=== PATIENT | female | born 1965 | race Caucasian/White ===

== ENCOUNTER → 2016-11-27 | Outpatient (CLI) | payer OTHER ==
[~2016-11-27] MED LIST: /ESOM40CA; ASPI1TAB PO; ASPI325T PO; ATOR40TA75 PO; BUPR15TASR PO; CLARITIN; CYMB60CA3 PO; DULE200A INH; FERR325T16 PO; FOLI1TAB4 PO; FURO40TA2 PO; GABA800T PO; GLIP5TAB2; GLUC1000; IBUP600T; INCR1INH INH; INSUDET SC; INSUH10VL SC; INSULANT SC; INSULIN REG; JANUVIA; LISI-542 PO; LISI2.5T76 PO; LORA10TA2 PO; LYRI75CA PO; METO1TAB87 PO; NABU750T PO; OMEP40CA2 PO; ONGLYZA PO; PENT400T47 PO; POTA10TA67 PO; PRED5ELUD PEG; PROC25SU24 PR; SERT-138 PO; SIMVPOW2; STOO100C PO; TIZA4CAP3 PO; TOUJ1.2I SC; VITA500046 PO; ZETI10TA
--- NOTE | 2016-11-27 11:34 | REP ---
Pelvic ultrasound including transabdominal, endovaginal and Doppler ultrasound assessment for a postmenopausal bleeding and bilateral pelvic pain: The bladder is incompletely distended. The uterus is anteverted and normal size measuring 8.2 x 3.5 x 4.0 cm. The endometrium is not thickened measuring up to 4 mm. The right ovary is normal size measuring 3.7 x 2.4-0.4 cm. There is a 2.3 cm right ovarian complex cyst. There is vascular flow in the right ovary with the Doppler resistive index of the intraparenchymal arteries measuring 0.79. The left ovary is normal size measuring 1.7 x 1.1 x 1.5 cm. There is no dominant left ovarian mass or cyst. There is vascular flow in the left ovary with the Doppler resistive index of the intraparenchymal arteries measuring 0.38. Impression: There is a 2.3 cm right ovarian complex cyst. There is vascular flow in both ovaries. Otherwise, negative pelvic ultrasound. Signed by Uche Livingston MD 11/27/2016 11:25 A
== END ==
LOC: M RAD 09:30
PROVIDERS: ATTEND Obstetrics & Gynecology
DX: N83.201 Unspecified ovarian cyst, right side (principal)

== ENCOUNTER 2016-11-28 19:01 | Emergency (ER) | payer OTHER ==
[~2016-11-28] VITALS: Ht 162.6 cm; Wt 84.7 kg
[2016-11-28] MEDS ORDERED: MORPHINE 4 MG/ML 1ML SYRINGE IV ONE (19:30)
[2016-11-28] MEDS ORDERED: ONDANSETRON 4MG/2ML VIAL (J2405) IV ONE (19:30)
[2016-11-28] MEDS ORDERED: NS 1,000 ML IV ONE (19:30)
[2016-11-28 20:12] LABS: BASO # 0.3 K/mm3 (0.0-0.2); BASO % 2.6 % (0.0-1.0); EOS # 0.2 K/mm3 (0.0-0.50); EOS % 2.5 % (0.0-3.0); LARGE UNSTAINED CELL # 0.2 K/mm3 (0.0-0.4); LARGE UNSTAINED CELL % 1.5 % (0.0-4.0); LYMPH # 2.4 K/mm3 (1.5-4.5); LYMPH % 23.3 % (24.0-44.0); MEAN CORPUSCULAR HEMOGLOBIN 30.2 pg (27.0-33.0); MEAN CORPUSCULAR HGB CONC 35.4 g/dl (32.0-36.5); MEAN CORPUSCULAR VOLUME 85.4 fl (80.0-96.0); MONO # 0.4 K/mm3 (0.0-0.8); MONO % 3.7 % (0.0-5.0); NEUTROPHILS # 6.9 K/mm3 (1.8-7.7); NEUTROPHILS % 66.5 % (36.0-66.0); PLATELET COUNT, AUTOMATED 281 k/mm3 (150-450); RED CELL DISTRIBUTION WIDTH 12.8 % (11.5-14.5); WHITE BLOOD COUNT 10.3 K/mm3 (4.0-10.0)
[2016-11-28 20:23] LABS: ALBUMIN 3.4 GM/DL (3.2-5.2); ALBUMIN/GLOBULIN RATIO 0.92 (1.00-1.93); ALKALINE PHOSPHATASE 198 U/L (45-117); ALT/SGPT 14 U/L (12-78); AMYLASE 62 U/L (25-115); ANION GAP 9 MEQ/L (8-16); AST/SGOT 10 U/L (15-37); BILIRUBIN,DIRECT < 0.1 MG/DL (0.0-0.2); BILIRUBIN,TOTAL 0.2 MG/DL (0.2-1.0); BLOOD UREA NITROGEN 11 MG/DL (7-18); CALCIUM LEVEL 8.8 MG/DL (8.5-10.1); CARBON DIOXIDE LEVEL 28 MEQ/L (21-32); CHLORIDE LEVEL 98 MEQ/L (98-107); CREATININE FOR GFR 0.99 MG/DL (0.55-1.02); GLOMERULAR FILTRATION RATE > 60.0 (>58); POTASSIUM SERUM 4.1 MEQ/L (3.5-5.1); SODIUM LEVEL 135 MEQ/L (136-145); TOTAL PROTEIN 7.1 GM/DL (6.4-8.2)
[2016-11-28 20:27] LABS: GLUCOSE, FASTING 470 MG/DL (70-105)
[2016-11-28] MEDS ORDERED: ISOVUE-370 76% 100ML VIAL (Q9967) As Ordered ONE (20:34)
--- NOTE | 2016-11-28 21:40 | REPUSA ---
CLINICAL HISTORY: Upper abdominal pain. TECHNIQUE: Multiple axial, coronal, sagittal CT images were obtained through the abdomen and pelvis with administration of IV contrast material. Oral contrast material is not administered. COMMENTS: There is mild hepatic hypoattenuation with respect to spleen compatible with fatty infiltration. The re is no intra or extrahepatic biliary ductal dilatation. The spleen is normal. The gallbladder is within normal limits. The pancreas is of normal contour and attenuation characteristics. 10 mm low density nodule is seen in the left adrenal gland compatible with adenoma. The right adrenal gland is unremarkable. Small hiatal hernia is seen. The kidneys are normal in size, shape and configuration. No renal or ureteral calculi are identified . There is no hydroureter or hydronephrosis. There is no evidence for appendicitis. There is evidence of circumferential wall thickening involvin g duodenum compatible with duodenitis. Consider consultation with GI service and follow-up upper end oscopy. No evidence for small or large bowel obstruction. There is no evidence of abdominal ascites or lymphadenopathy. There is no evidence of intrinsic or extrinsic bladder mass. There is no pelvic ascites or lymphaden opathy. The uterus and ovaries are unremarkable. Images of the lung bases show no evidence of pleural or parenchymal mass. There are no pleural effus ions. The heart is enlarged. Status post median sternotomy and CABG. The bony structures are free of lytic or blastic lesions. IMPRESSION: 1. Evidence of duodenitis. 2. Left adrenal adenoma. 3. Mild fatty infiltration of the liver. 4. Small hiatal hernia is seen. 5. The heart is enlarged. 6. Status post median sternotomy and CABG.
[2016-11-28 21:56] VITALS: BP 153/85
--- NOTE | 2016-11-29 07:41 | ED PDOC ---
Post-Departure Follow-Up Radiology report faxed to Rena Ramachandran MD Nov 29, 2016 07:41
== END 2016-11-28 21:59 | disposition home or self-care (01) ==
LOC: M ED 19:01
DX: K52.9 Noninfective gastroenteritis and colitis, unspecified (principal); K29.80 Duodenitis without bleeding; D35.00 Benign neoplasm of unspecified adrenal gland; K76.0 Fatty (change of) liver, not elsewhere classified; K44.9 Diaphragmatic hernia without obstruction or gangrene; I51.7 Cardiomegaly; Z95.1 Presence of aortocoronary bypass graft; G47.30 Sleep apnea, unspecified; I25.10 Atherosclerotic heart disease of native coronary artery without angina pectoris; I25.2 Old myocardial infarction; E11.9 Type 2 diabetes mellitus without complications; M54.5 Low back pain; I10 Essential (primary) hypertension; Z86.14 Personal history of Methicillin resistant Staphylococcus aureus infection; Z79.82 Long term (current) use of aspirin; Z79.4 Long term (current) use of insulin; Z79.899 Other long term (current) drug therapy
CPT/HCPCS: 74177; 80048; 80076; 81001; 82150; 83690; 85025; 96374; 96375; 99283; J2405; Q9967

== ENCOUNTER → 2016-12-15 | Outpatient (REF) | payer OTHER | LOC: M LAB REF 17:28 | PROVIDERS: ATTEND Obstetrics & Gynecology | DX: N95.0 Postmenopausal bleeding (principal) ==

== ENCOUNTER 2017-03-18 19:49 | Emergency (ER) | payer OTHER ==
[~2017-03-18] VITALS: Ht 162.6 cm; Wt 88.6 kg
[2017-03-18] MEDS ORDERED: METF10004 PO (20:10)
[2017-03-18] MEDS ORDERED: GABA-282 (20:10)
[2017-03-18 22:17] LABS: BASO % 0.4 % (0.0-1.0); EOS # 0.3 10^3/uL (0.0-0.50); IMMATURE GRANULOCYTE % 0.5 % (0-0); LYMPH # 2.6 10^3/uL (1.5-4.5); LYMPH % 27.1 % (24.0-44.0); MEAN CORPUSCULAR HGB CONC 34.2 g/dl (32.0-36.5); MEAN CORPUSCULAR VOLUME 84.8 fl (80.0-96.0); MONO # 0.5 10^3/uL (0.0-0.8); MONO % 5.6 % (0.0-5.0); NEUTROPHILS % 63.4 % (36.0-66.0); PLATELET COUNT, AUTOMATED 296 10^3/uL (150-450); RED CELL DISTRIBUTION WIDTH 12.6 % (11.5-14.5); WHITE BLOOD COUNT 9.5 10^3/uL (4.0-10.0)
[2017-03-18 22:42] LABS: ALBUMIN 3.1 GM/DL (3.2-5.2); ALBUMIN/GLOBULIN RATIO 0.86 (1.00-1.93); ALKALINE PHOSPHATASE 171 U/L (45-117); ALT/SGPT 14 U/L (12-78); ANION GAP 5 MEQ/L (8-16); AST/SGOT 9 U/L (7-37); BILIRUBIN,DIRECT < 0.1 MG/DL (0.0-0.2); BILIRUBIN,TOTAL 0.2 MG/DL (0.2-1.0); BLOOD UREA NITROGEN 17 MG/DL (7-18); CALCIUM LEVEL 8.6 MG/DL (8.5-10.1); CARBON DIOXIDE LEVEL 31 MEQ/L (21-32); CHLORIDE LEVEL 102 MEQ/L (98-107); CREATININE FOR GFR 0.87 MG/DL (0.55-1.02); GLOMERULAR FILTRATION RATE > 60.0 (>58); GLUCOSE, FASTING 353 MG/DL (70-105); POTASSIUM SERUM 4.5 MEQ/L (3.5-5.1); SODIUM LEVEL 138 MEQ/L (136-145); TOTAL PROTEIN 6.7 GM/DL (6.4-8.2)
[2017-03-18] MEDS ORDERED: ISOVUE-370 76% 100ML VIAL (Q9967) As Ordered ONE (23:52)
[2017-03-19] MEDS ORDERED: dexameTHASONE 20 MG/5 ML VIAL (J1100) IV ONE (02:30)
--- NOTE | 2017-03-19 02:30 | REPUSA ---
CLINICAL HISTORY: Pain. TECHNIQUE: Multiple axial CT images were obtained through the neck with IV contrast material. MPR cor onal and sagittal sequences were obtained. COMMENTS: Moderate hypertrophy of the adenoids. Moderate bilateral tonsillar enlargement and oropharynx. Secondary mass effect on the pharyngeal air passage at this level. The narrowest anteroposterior dimension of the residual airway in the orophary nx is 4.8 mm. This is noted at the level of the maximum tonsillar enlargement. No retropharyngeal abscess formation. No drainable fluid collection or abscess formation. The piriform sinuses are normal. There is no supra or infraglottic laryngeal mass. The proximal trach ea is normal. There is no paravertebral soft tissue mass. The salivary glands are normal. There is no deep cervical or jugular lymphadenopathy. The paravertebral soft tissue space is normal. Limited images through the posterior fossa demonstrate no evidence for tonsilar herniation. Evaluation of the visualized lung apices reveals no evidence for abnormality. IMPRESSION: Hypertrophy of the adenoids. Hypertrophy of the palatine tonsils. Probably infectious/inflammatory pathology. Significant mass effect/impingement on the pharyngeal air passage at the level of the palatine tonsil s as detailed above. No drainable abscess formation. Thank you for your kind referral of this patient.
--- NOTE | 2017-03-19 02:48 | REP ---
Clinical: Chest pain . Comparison: 03/11/2016 . Findings: The mediastinum and cardiac silhouette are stable and within normal limits for portable technique. Prior sternotomy. The lung snowden are clear without acute consolidation, effusion, or pneumothorax. Skeletal structures are intact. Impression: No acute cardiopulmonary process appreciated. Signed by James Ya MD 03/19/2017 02:39 A
[2017-03-19 04:03] VITALS: BP 135/62
--- NOTE | 2017-03-19 06:49 | ED PDOC ---
Post-Departure Follow-Up dr richards faxed formal report of ct neck for fu Kartik Kaufman MD Mar 19, 2017 06:49
--- NOTE | 2017-03-19 09:21 | ECGEPIP ---
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
== END 2017-03-19 05:50 | disposition home or self-care (01) ==
LOC: M ED 19:49
DX: J35.3 Hypertrophy of tonsils with hypertrophy of adenoids (principal); R00.0 Tachycardia, unspecified; E11.9 Type 2 diabetes mellitus without complications; I10 Essential (primary) hypertension; F17.200 Nicotine dependence, unspecified, uncomplicated; Z79.82 Long term (current) use of aspirin; Z79.4 Long term (current) use of insulin; Z79.899 Other long term (current) drug therapy
CPT/HCPCS: 70491; 71010; 80048; 80076; 82550; 82553; 83690; 85025; 87880; 93000; 93041; 94760; 96374; 99285; J1100; Q9967

== ENCOUNTER → 2017-05-19 | Outpatient (CLI) | payer OTHER | LOC: M RAD 11:06 | DX: N95.0 Postmenopausal bleeding (principal); N83.201 Unspecified ovarian cyst, right side | CPT/HCPCS: 76856 ==

== ENCOUNTER 2017-06-19 12:11 | Emergency (ER) | payer OTHER ==
[2017-06-19 13:08] LABS: BASO # 0.1 10^3/uL (0.0-0.2); BASO % 0.5 % (0.0-1.0); EOS # 0.3 10^3/uL (0.0-0.50); EOS % 2.2 % (0.0-3.0); HEMOGLOBIN 15.2 g/dl (12.0-16.0); IMMATURE GRANULOCYTE % 0.5 % (0-3.0); LYMPH # 3.6 10^3/uL (1.5-4.5); LYMPH % 27.8 % (24.0-44.0); MEAN CORPUSCULAR HEMOGLOBIN 28.6 pg (27.0-33.0); MEAN CORPUSCULAR HGB CONC 35.3 g/dl (32.0-36.5); MEAN CORPUSCULAR VOLUME 80.8 fl (80.0-96.0); MONO # 0.6 10^3/uL (0.0-0.8); MONO % 4.8 % (0.0-5.0); NEUTROPHILS # 8.3 10^3/uL (1.8-7.7); NEUTROPHILS % 64.2 % (36.0-66.0); PLATELET COUNT, AUTOMATED 303 10^3/uL (150-450); RED BLOOD COUNT 5.32 10^6/uL (4.00-5.40); RED CELL DISTRIBUTION WIDTH 12.4 % (11.5-14.5)
[2017-06-19] MEDS: NS 1,000 ML IV ×2 (13:21)
[2017-06-19] MEDS: ONDANSETRON 4MG/2ML VIAL (J2405) IV ×2 (13:22)
[2017-06-19] MEDS: KETOROLAC 30 MG/ML VIAL (J1885) IV ×2 (13:22)
[2017-06-19 13:58] LABS: ALBUMIN 3.7 GM/DL (3.2-5.2); ALBUMIN/GLOBULIN RATIO 0.77 (1.00-1.93); ALKALINE PHOSPHATASE 210 U/L (45-117); ALT/SGPT 13 U/L (12-78); ANION GAP 6 MEQ/L (8-16); AST/SGOT 9 U/L (7-37); BILIRUBIN,DIRECT < 0.1 MG/DL (0.0-0.2); BILIRUBIN,TOTAL 0.3 MG/DL (0.2-1.0); BLOOD UREA NITROGEN 16 MG/DL (7-18); CALCIUM LEVEL 9.8 MG/DL (8.5-10.1); CARBON DIOXIDE LEVEL 32 MEQ/L (21-32); CHLORIDE LEVEL 95 MEQ/L (98-107); CREATININE FOR GFR 1.09 MG/DL (0.55-1.30); GLOMERULAR FILTRATION RATE 56.6 (>51); GLUCOSE, FASTING 324 MG/DL (70-100); LIPASE 103 U/L (73-393); POTASSIUM SERUM 3.5 MEQ/L (3.5-5.1); SODIUM LEVEL 133 MEQ/L (136-145); TOTAL PROTEIN 8.5 GM/DL (6.4-8.2)
[2017-06-19 14:14] LABS: AMORPHOUS SEDIMENT RFX SMALL (NEGATIVE); KETONE, URINE AUTO RFX NEGATIVE (NEGATIVE); LEUKOCYTE ESTERASE UR AUTO RFX 3+ (NEGATIVE); MUCUS, URINE RFX SMALL (NEGATIVE); NITRITE, URINE AUTO RFX NEGATIVE (NEGATIVE); RBC, URINE AUTO RFX 38 /HPF (0-3); SPECIFIC GRAVITY UR AUTO RFX 1.025 (1.002-1.035); SQUAM EPITHELIAL CELL UR AURFX 19 /HPF (0-6); WBC, URINE AUTO RFX 60 /HPF (0-3)
[2017-06-23 09:40] LABS: BEDSIDE GLUCOSE 384 MG/DL (70-105)
== END 2017-06-19 15:36 | disposition home or self-care (01) ==
LOC: M ED 12:11
DX: N39.0 Urinary tract infection, site not specified (principal); E11.9 Type 2 diabetes mellitus without complications; I10 Essential (primary) hypertension; K21.9 Gastro-esophageal reflux disease without esophagitis; G89.29 Other chronic pain; N83.209 Unspecified ovarian cyst, unspecified side; Z79.899 Other long term (current) drug therapy; Z79.82 Long term (current) use of aspirin; Z79.4 Long term (current) use of insulin; F17.210 Nicotine dependence, cigarettes, uncomplicated
CPT/HCPCS: J2405

== ENCOUNTER → 2017-07-30 | Outpatient (CLI) | payer OTHER ==
[2017-07-30 11:57] LABS: BASO # 0.1 10^3/uL (0.0-0.2); BASO % 0.8 % (0.0-1.0); EOS # 0.3 10^3/uL (0.0-0.50); EOS % 2.5 % (0.0-3.0); HEMOGLOBIN 15.3 g/dl (12.0-15.5); IMMATURE GRANULOCYTE % 0.3 % (0-3.0); LYMPH # 2.8 10^3/uL (1.5-4.5); LYMPH % 27.7 % (24.0-44.0); MEAN CORPUSCULAR HEMOGLOBIN 28.9 pg (27.0-33.0); MEAN CORPUSCULAR HGB CONC 34.8 g/dl (32.0-36.5); MEAN CORPUSCULAR VOLUME 83.2 fl (80.0-96.0); MONO # 0.5 10^3/uL (0.0-0.8); MONO % 4.9 % (0.0-5.0); NEUTROPHILS # 6.5 10^3/uL (1.8-7.7); NEUTROPHILS % 63.8 % (36.0-66.0); PLATELET COUNT, AUTOMATED 288 10^3/uL (150-450); RED BLOOD COUNT 5.29 10^6/uL (4.00-5.40); RED CELL DISTRIBUTION WIDTH 12.2 % (11.5-14.5); WHITE BLOOD COUNT 10.2 10^3/uL (4.0-10.0)
[2017-07-30 12:38] LABS: TOTAL 25(OH) VITAMIN D 15.8 NG/ML (30.0-100.0)
[2017-07-30 12:39] LABS: ALBUMIN 3.2 GM/DL (3.2-5.2); ALKALINE PHOSPHATASE 169 U/L (45-117); ALT/SGPT 15 U/L (12-78); AMYLASE 42 U/L (25-115); ANION GAP 3 MEQ/L (8-16); AST/SGOT 10 U/L (7-37); BILIRUBIN,TOTAL 0.3 MG/DL (0.2-1.0); BLOOD UREA NITROGEN 11 MG/DL (7-18); CALCIUM LEVEL 8.8 MG/DL (8.5-10.1); CARBON DIOXIDE LEVEL 32 MEQ/L (21-32); CHLORIDE LEVEL 102 MEQ/L (98-107); CHOLESTEROL LEVEL 219 MG/DL (<200); CHOLESTEROL RISK RATIO 6.636 (<5); CREATININE FOR GFR 0.79 MG/DL (0.55-1.30); GLOMERULAR FILTRATION RATE > 60.0 (>51); GLUCOSE, FASTING 324 MG/DL (70-100); HDL CHOLESTEROL 33 MG/DL (>40); LDL CHOLESTEROL 137.4 MG/DL (<100); LIPASE 353 U/L (73-393); NON-HDL-C 186 MG/DL; POTASSIUM SERUM 4.6 MEQ/L (3.5-5.1); SODIUM LEVEL 137 MEQ/L (136-145); TOTAL PROTEIN 7.2 GM/DL (6.4-8.2); TRIGLYCERIDES LEVEL 243 MG/DL (<150)
[2017-07-30 12:44] LABS: CONTROL LINE HPYORI INT CTR LINE PRESENT; H PYLORI QUALITATIVE IgG NEGATIVE (NEGATIVE)
[2017-07-30 13:05] LABS: ESTIMATED AVERAGE GLUCOSE 278 MG/DL (60-110); HEMOGLOBIN A1c 11.3 %
== END ==
LOC: M LAB 11:23
DX: E78.5 Hyperlipidemia, unspecified (principal); E11.65 Type 2 diabetes mellitus with hyperglycemia; E78.4 Other hyperlipidemia; E55.9 Vitamin D deficiency, unspecified; Z79.899 Other long term (current) drug therapy; R10.13 Epigastric pain
CPT/HCPCS: 82150

== ENCOUNTER → 2017-08-26 | Outpatient (CLI) | payer OTHER ==
[~2017-08-26] MED LIST changes: -/ESOM40CA; -ASPI1TAB PO; -ASPI325T PO; -ATOR40TA75 PO; -BUPR15TASR PO; -CLARITIN; -CYMB60CA3 PO; -DULE200A INH; +E-Z-GAS II EFFERVESCENT PACKET (SODIUM BICARB./CITRIC ACID/SIMETHICONE) As Ordered; +E-Z-HD 98% w/w 340GM SUSP BTL As Ordered; +E-Z-PAQUE 96% w/w SUSP 176GM BTL As Ordered; -FERR325T16 PO; -FOLI1TAB4 PO; -FURO40TA2 PO; -GABA800T PO; -GLIP5TAB2; -GLUC1000; -IBUP600T; -INCR1INH INH; -INSUDET SC; -INSUH10VL SC; -INSULANT SC; -INSULIN REG; -JANUVIA; -LISI-542 PO; -LISI2.5T76 PO; -LORA10TA2 PO; -LYRI75CA PO; -METO1TAB87 PO; -NABU750T PO; -OMEP40CA2 PO; -ONGLYZA PO; -PENT400T47 PO; -POTA10TA67 PO; -PRED5ELUD PEG; -PROC25SU24 PR; -SERT-138 PO; -SIMVPOW2; -STOO100C PO; -TIZA4CAP3 PO; -TOUJ1.2I SC; -VITA500046 PO; -ZETI10TA
== END ==
LOC: M RAD 08:44
DX: R10.13 Epigastric pain (principal)
CPT/HCPCS: 76705

== ENCOUNTER 2017-10-21 09:01 | Emergency (ER) | payer OTHER ==
[2017-10-21] MEDS: LIDOCAINE 2% W/EPIN INJ 20ML **PRES FREE INJ (09:45)
== END 2017-10-21 10:15 | disposition home or self-care (01) ==
LOC: M ED 09:01
DX: L02.31 Cutaneous abscess of buttock (principal); E10.9 Type 1 diabetes mellitus without complications; Z87.19 Personal history of other diseases of the digestive system; Z87.448 Personal history of other diseases of urinary system; Z95.1 Presence of aortocoronary bypass graft; F17.210 Nicotine dependence, cigarettes, uncomplicated; Z79.899 Other long term (current) drug therapy; Z79.82 Long term (current) use of aspirin; Z79.51 Long term (current) use of inhaled steroids
CPT/HCPCS: 87186

== ENCOUNTER 2017-10-27 09:28 | Emergency (ER) | payer OTHER | END 2017-10-27 10:10 | disposition home or self-care (01) | LOC: M ED 09:28 | DX: L02.31 Cutaneous abscess of buttock (principal); F17.200 Nicotine dependence, unspecified, uncomplicated; Z79.2 Long term (current) use of antibiotics; Z79.899 Other long term (current) drug therapy; Z79.4 Long term (current) use of insulin; Z79.51 Long term (current) use of inhaled steroids | CPT/HCPCS: 99282 ==

== ENCOUNTER 2018-01-14 19:35 | Emergency (ER) | payer OTHER ==
[2018-01-14 20:20] LABS: BASO # 0.1 10^3/uL (0.0-0.2); BASO % 0.7 % (0.0-1.0); EOS # 0.3 10^3/uL (0.0-0.50); EOS % 3.4 % (0.0-3.0); HEMATOCRIT 38.3 % (36.0-47.0); HEMOGLOBIN 13.2 g/dl (12.0-15.5); IMMATURE GRANULOCYTE % 0.5 % (0-3.0); LYMPH # 2.5 10^3/uL (1.5-4.5); LYMPH % 28.7 % (24.0-44.0); MEAN CORPUSCULAR HEMOGLOBIN 29.5 pg (27.0-33.0); MEAN CORPUSCULAR HGB CONC 34.5 g/dl (32.0-36.5); MEAN CORPUSCULAR VOLUME 85.5 fl (80.0-96.0); MONO # 0.5 10^3/uL (0.0-0.8); MONO % 5.6 % (0.0-5.0); NEUTROPHILS # 5.3 10^3/uL (1.8-7.7); NEUTROPHILS % 61.1 % (36.0-66.0); PLATELET COUNT, AUTOMATED 250 10^3/uL (150-450); RED BLOOD COUNT 4.48 10^6/uL (4.00-5.40); RED CELL DISTRIBUTION WIDTH 12.6 % (11.5-14.5); WHITE BLOOD COUNT 8.6 10^3/uL (4.0-10.0)
[2018-01-14 20:44] LABS: POS COUNT POS FLAG
[2018-01-14 21:44] LABS: ANION GAP 8 MEQ/L (8-16); BLOOD UREA NITROGEN 15 MG/DL (7-18); CARBON DIOXIDE LEVEL 28 MEQ/L (21-32); CHLORIDE LEVEL 101 MEQ/L (98-107); CPK CREATINE PHOSPHOKINASE 39 U/L (26-192); CREATININE FOR GFR 0.83 MG/DL (0.55-1.30); GLOMERULAR FILTRATION RATE > 60.0 (>51); GLUCOSE, FASTING 347 MG/DL (70-100); MB/CK RELATIVE INDEX 4.62 (< OR =4); POTASSIUM SERUM 4.3 MEQ/L (3.5-5.1); SODIUM LEVEL 137 MEQ/L (136-145); TROPONIN I < 0.02 NG/ML (< 0.10)
[2018-01-14] MEDS: HumuLIN R (REGULAR) INSULIN (NovoLIN R) **100U/ML** PER UNIT IV (22:15)
[2018-01-14] MEDS: NAPROXEN 250 MG TAB PO (22:15)
== END 2018-01-14 22:34 | disposition home or self-care (01) ==
LOC: M ED 19:35
DX: M94.0 Chondrocostal junction syndrome [Tietze] (principal); E11.9 Type 2 diabetes mellitus without complications; I10 Essential (primary) hypertension; E78.5 Hyperlipidemia, unspecified; K21.9 Gastro-esophageal reflux disease without esophagitis; F17.200 Nicotine dependence, unspecified, uncomplicated; Z82.49 Family history of ischemic heart disease and other diseases of the circulatory system; Z79.899 Other long term (current) drug therapy; Z79.4 Long term (current) use of insulin; Z79.82 Long term (current) use of aspirin
CPT/HCPCS: 71046

== ENCOUNTER 2018-01-21 15:47 | Emergency (ER) | payer OTHER ==
[2018-01-21] MEDS: IPRATROPIUM 0.5MG/ALBUTEROL 2.5MG INH SOL UD 3ML (DUONEB)(J7620) NEB (16:54)
[2018-01-21 17:18] LABS: BASO % 0.3 % (0.0-1.0); EOS # 0.1 10^3/uL (0.0-0.50); EOS % 0.7 % (0.0-3.0); HEMATOCRIT 42.5 % (36.0-47.0); HEMOGLOBIN 14.5 g/dl (12.0-15.5); IMMATURE GRANULOCYTE % 0.3 % (0-3.0); LYMPH # 1.3 10^3/uL (1.5-4.5); LYMPH % 8.7 % (24.0-44.0); MEAN CORPUSCULAR HEMOGLOBIN 29.2 pg (27.0-33.0); MEAN CORPUSCULAR HGB CONC 34.1 g/dl (32.0-36.5); MEAN CORPUSCULAR VOLUME 85.7 fl (80.0-96.0); MONO # 0.7 10^3/uL (0.0-0.8); MONO % 4.6 % (0.0-5.0); NEUTROPHILS # 12.7 10^3/uL (1.8-7.7); NEUTROPHILS % 85.4 % (36.0-66.0); PLATELET COUNT, AUTOMATED 266 10^3/uL (150-450); RED BLOOD COUNT 4.96 10^6/uL (4.00-5.40); RED CELL DISTRIBUTION WIDTH 12.4 % (11.5-14.5); WHITE BLOOD COUNT 14.9 10^3/uL (4.0-10.0)
[2018-01-21 18:15] LABS: ANION GAP 7 MEQ/L (8-16); BLOOD UREA NITROGEN 12 MG/DL (7-18); CALCIUM LEVEL 9.6 MG/DL (8.5-10.1); CARBON DIOXIDE LEVEL 35 MEQ/L (21-32); CHLORIDE LEVEL 91 MEQ/L (98-107); CPK CREATINE PHOSPHOKINASE 36 U/L (26-192); CREATININE FOR GFR 0.94 MG/DL (0.55-1.30); GLOMERULAR FILTRATION RATE > 60.0 (>51); GLUCOSE, FASTING 622 MG/DL (70-100); MB/CK RELATIVE INDEX 3.61 (< OR =4); POTASSIUM SERUM 4.4 MEQ/L (3.5-5.1); SODIUM LEVEL 133 MEQ/L (136-145); TROPONIN I < 0.02 NG/ML (< 0.10)
[2018-01-21] MEDS ORDERED: predniSONE 20 MG TAB PO (18:15)
[2018-01-21 18:59] LABS: APPEARANCE, URINE CLOUDY (CLEAR); BACTERIA, URINE AUTO NEGATIVE (NEGATIVE); BILIRUBIN, URINE AUTO NEGATIVE (NEGATIVE); BLOOD, URINE BLOOD 2+ (NEGATIVE); COLOR, URINE YELLOW (YELLOW); GLUCOSE, URINE (UA) AUTO 3+ mg/dL (NEGATIVE); KETONE, URINE AUTO TRACE mg/dL (NEGATIVE); LEUKOCYTE ESTERASE, URINE AUTO 3+ (NEGATIVE); NITRITE, URINE AUTO NEGATIVE (NEGATIVE); PROTEIN, URINE AUTO 1+ mg/dL (NEGATIVE); RBC, URINE AUTO 27 /HPF (0-3); SPECIFIC GRAVITY URINE AUTO 1.027 (1.002-1.035); SQUAMOUS EPITHELIAL CELL UR AU 2 /HPF (0-6); UROBILINOGEN, URINE AUTO 0.2 mg/dL (0.0-2.0); WBC, URINE AUTO TNTC /HPF (0-3)
[2018-01-21 19:28] LABS: VENOUS BASE EXCESS 5.7 (-2.0-2.0); VENOUS HCO3 32.4 MEQ/L (23.0-27.0); VENOUS O2 SATURATION 95.2 % (60.0-80.0); VENOUS PARTIAL PRESSURE CO2 55.4 mmHg (38.0-50.0); VENOUS PARTIAL PRESSURE O2 75.3 mmHg (30.0-50.0); VENOUS PH 7.385 UNITS (7.330-7.430); VENOUS STANDARD HCO3 29.6 MEQ/L; VENOUS TOTAL CO2 34.1 MEQ/L (24.0-28.0)
[2018-01-21] MEDS: NS 1,000 ML IV (19:50)
[2018-01-21] MEDS: CEFUROXIME 500 MG TAB PO (19:50)
[2018-01-21] MEDS: HumuLIN R (REGULAR) INSULIN (NovoLIN R) **100U/ML** PER UNIT IV (20:14)
[2018-01-21 21:33] LABS: BEDSIDE GLUCOSE 389 MG/DL (70-105)
[2018-01-21] MEDS: CEFDINIR 250 MG/5 ML 60ML SUSP BTL PO (22:00)
== END 2018-01-21 22:07 | disposition home or self-care (01) ==
LOC: M ED 15:47
DX: J40 Bronchitis, not specified as acute or chronic (principal); E11.9 Type 2 diabetes mellitus without complications; I10 Essential (primary) hypertension; E78.5 Hyperlipidemia, unspecified; F17.200 Nicotine dependence, unspecified, uncomplicated
CPT/HCPCS: 71046

== ENCOUNTER → 2018-01-21 | Outpatient (REF) | payer OTHER ==
[2018-01-21 18:36] LABS: APPEARANCE, URINE CLOUDY (CLEAR); BACTERIA, URINE AUTO 2+ (NEGATIVE); BILIRUBIN, URINE AUTO NEGATIVE (NEGATIVE); BLOOD, URINE BLOOD 1+ (NEGATIVE); COLOR, URINE YELLOW (YELLOW); GLUCOSE, URINE (UA) AUTO 3+ mg/dL (NEGATIVE); KETONE, URINE AUTO NEGATIVE (NEGATIVE); LEUKOCYTE ESTERASE, URINE AUTO 3+ (NEGATIVE); MUCUS, URINE SMALL (NEGATIVE); NITRITE, URINE AUTO NEGATIVE (NEGATIVE); PROTEIN, URINE AUTO NEGATIVE (NEGATIVE); RBC, URINE AUTO 5 /HPF (0-3); SPECIFIC GRAVITY URINE AUTO 1.024 (1.002-1.035); SQUAMOUS EPITHELIAL CELL UR AU 1 /HPF (0-6); UROBILINOGEN, URINE AUTO 0.2 mg/dL (0.0-2.0); WBC, URINE AUTO 146 /HPF (0-3)
== END ==
LOC: M LAB REF 17:06
DX: N39.0 Urinary tract infection, site not specified (principal)

== ENCOUNTER 2018-01-27 00:34 | Inpatient (IN) | payer OTHER ==
[2018-01-27 01:48] LABS: BASO # 0.1 10^3/uL (0.0-0.2); BASO % 0.4 % (0.0-1.0); EOS # 0.1 10^3/uL (0.0-0.50); EOS % 1.2 % (0.0-3.0); HEMATOCRIT 38.9 % (36.0-47.0); HEMOGLOBIN 12.5 g/dl (12.0-15.5); IMMATURE GRANULOCYTE % 0.5 % (0-3.0); LYMPH # 1.4 10^3/uL (1.5-4.5); LYMPH % 12.8 % (24.0-44.0); MEAN CORPUSCULAR HEMOGLOBIN 28.9 pg (27.0-33.0); MEAN CORPUSCULAR HGB CONC 32.1 g/dl (32.0-36.5); MEAN CORPUSCULAR VOLUME 89.8 fl (80.0-96.0); MONO # 0.8 10^3/uL (0.0-0.8); MONO % 6.9 % (0.0-5.0); NEUTROPHILS # 8.8 10^3/uL (1.8-7.7); NEUTROPHILS % 78.2 % (36.0-66.0); PLATELET COUNT, AUTOMATED 359 10^3/uL (150-450); RED BLOOD COUNT 4.33 10^6/uL (4.00-5.40); RED CELL DISTRIBUTION WIDTH 12.8 % (11.5-14.5); WHITE BLOOD COUNT 11.3 10^3/uL (4.0-10.0)
[2018-01-27 02:35] LABS: ANION GAP 10 MEQ/L (8-16); BLOOD UREA NITROGEN 17 MG/DL (7-18); CALCIUM LEVEL 8.5 MG/DL (8.5-10.1); CARBON DIOXIDE LEVEL 31 MEQ/L (21-32); CHLORIDE LEVEL 83 MEQ/L (98-107); GLOMERULAR FILTRATION RATE 46.2 (>51); POTASSIUM SERUM 4.9 MEQ/L (3.5-5.1); SODIUM LEVEL 124 MEQ/L (136-145)
[2018-01-27] MEDS: HumuLIN R (REGULAR) INSULIN (NovoLIN R) **100U/ML** PER UNIT IV (02:48)
[2018-01-27] MEDS: NS 1,000 ML IV (02:49)
[2018-01-27 03:01] LABS: GLUCOSE, FASTING 1110 MG/DL (70-100)
[2018-01-27] MEDS: LevoFLOXacin IV 750 MG in APPROPRIATE DILUENT 1 EA IV (03:37)
[2018-01-27] MEDS ORDERED: NS 1,000 ML IV (04:08)
[2018-01-27] MEDS ORDERED: INSULIN HUMAN REGULAR 100 UNITS in NS 99 ML IV (04:15)
[2018-01-27] MEDS ORDERED: INSULIN IV RATE CHANGE DOCUMENTATION ML/HR XX (04:15)
[2018-01-27] MEDS ORDERED: ALBUTEROL 90 MCG/ACT 8GM HFA INHALER INH (04:30)
[2018-01-27] MEDS ORDERED: BENZONATATE 100 MG CAP PO (04:30)
[2018-01-27] MEDS ORDERED: ONDANSETRON 4 MG ORAL DISINTEGRATING TAB (Q0162 PER 1MG) PO (04:30)
[2018-01-27] MEDS: INSULIN HUMAN REGULAR 100 UNITS in NS 99 ML IV (05:05)
[2018-01-27 05:22] LABS: HEMATOCRIT 35.3 % (36.0-47.0); HEMOGLOBIN 12.1 g/dl (12.0-15.5); MEAN CORPUSCULAR HEMOGLOBIN 29.3 pg (27.0-33.0); MEAN CORPUSCULAR HGB CONC 34.3 g/dl (32.0-36.5); MEAN CORPUSCULAR VOLUME 85.5 fl (80.0-96.0); PLATELET COUNT, AUTOMATED 338 10^3/uL (150-450); RED BLOOD COUNT 4.13 10^6/uL (4.00-5.40); RED CELL DISTRIBUTION WIDTH 12.4 % (11.5-14.5); WHITE BLOOD COUNT 10.2 10^3/uL (4.0-10.0)
[2018-01-27] MEDS: KCL 20MEQ in NS 1000ML 1,000 ML IV (05:28)
[2018-01-27 05:43] LABS: ANION GAP 10 MEQ/L (8-16); BLOOD UREA NITROGEN 16 MG/DL (7-18); CARBON DIOXIDE LEVEL 31 MEQ/L (21-32); CHLORIDE LEVEL 92 MEQ/L (98-107); CREATININE FOR GFR 1.16 MG/DL (0.55-1.30); GLOMERULAR FILTRATION RATE 52.6 (>51); GLUCOSE, FASTING 828 MG/DL (70-100); POTASSIUM SERUM 3.7 MEQ/L (3.5-5.1); SODIUM LEVEL 133 MEQ/L (136-145)
[2018-01-27] MEDS: HEPARIN SOD (PORCINE) 5000 UNITS/ML VIAL SC ×3 (06:00→20:41)
[2018-01-27] MEDS ORDERED: INFLUENZA QUADRIVALENT PF VACCINE 0.5ML SYRINGE (90686) IM (06:15)
[2018-01-27] MEDS: INSULIN IV RATE CHANGE DOCUMENTATION ML/HR XX ×2 (06:21→06:29)
[2018-01-27] MEDS: cefTRIAXone SOD 1 GM in D5W MINI-BAG PLUS 50 ML IV (06:38)
[2018-01-27] MEDS: D5W 1,000 ML IV (07:49)
[2018-01-27 07:55] LABS: BEDSIDE GLUCOSE 404 MG/DL (70-105)
[2018-01-27] MEDS ORDERED: GLUCOSE 4 GM CHEW TABLET PO (08:15)
[2018-01-27] MEDS ORDERED: GLUCAGON FOR INJ 1 MG VIAL (J1610) SC (08:15)
[2018-01-27] MEDS ORDERED: DEXTROSE 50% 50 ML SYRINGE IV (08:15)
[2018-01-27 08:17] LABS: ANION GAP 10 MEQ/L (8-16); BLOOD UREA NITROGEN 14 MG/DL (7-18); CALCIUM LEVEL 9.2 MG/DL (8.5-10.1); CARBON DIOXIDE LEVEL 31 MEQ/L (21-32); CHLORIDE LEVEL 96 MEQ/L (98-107); GLOMERULAR FILTRATION RATE > 60.0 (>51); GLUCOSE, FASTING 425 MG/DL (70-100); MAGNESIUM LEVEL 2.1 MG/DL (1.8-2.4); SODIUM LEVEL 137 MEQ/L (136-145)
[2018-01-27 08:17] LABS: LACTIC ACID SEPSIS PROTOCOL 2.3 MMOL/L (0.4-2.0)
[2018-01-27 08:59] LABS: OSMOLALITY SERUM 323 MOSM/KG (275-295)
[2018-01-27 09:22] LABS: BEDSIDE GLUCOSE 500 MG/DL (70-105)
[2018-01-27 09:37] LABS: BEDSIDE GLUCOSE > 600 MG/DL (70-105)
[2018-01-27 09:37] LABS: BEDSIDE GLUCOSE > 600 MG/DL (70-105)
[2018-01-27 09:37] LABS: BEDSIDE GLUCOSE > 600 MG/DL (70-105)
[2018-01-27 09:44] LABS: AMORPHOUS SEDIMENT SMALL (NEGATIVE); APPEARANCE, URINE HAZY (CLEAR); BACTERIA, URINE AUTO NEGATIVE (NEGATIVE); BILIRUBIN, URINE AUTO NEGATIVE (NEGATIVE); BLOOD, URINE BLOOD NEGATIVE (NEGATIVE); COLOR, URINE YELLOW (YELLOW); GLUCOSE, URINE (UA) AUTO 3+ mg/dL (NEGATIVE); KETONE, URINE AUTO NEGATIVE (NEGATIVE); LEUKOCYTE ESTERASE, URINE AUTO 3+ (NEGATIVE); MUCUS, URINE SMALL (NEGATIVE); NITRITE, URINE AUTO NEGATIVE (NEGATIVE); PROTEIN, URINE AUTO NEGATIVE (NEGATIVE); RBC, URINE AUTO 10 /HPF (0-3); SPECIFIC GRAVITY URINE AUTO 1.021 (1.002-1.035); SQUAMOUS EPITHELIAL CELL UR AU 4 /HPF (0-6); UROBILINOGEN, URINE AUTO 0.2 mg/dL (0.0-2.0); WBC, URINE AUTO 12 /HPF (0-3)
[2018-01-27] MEDS: ASPIRIN 325 MG TAB PO (09:45)
[2018-01-27] MEDS: GABAPENTIN 300 MG CAP PO ×3 (09:45→20:40)
[2018-01-27] MEDS: LISINOPRIL 5 MG TAB PO (09:46)
[2018-01-27] MEDS: ATORVASTATIN 20 MG TAB PO (09:46)
[2018-01-27] MEDS: OMEPRAZOLE 20 MG CAP PO (09:46)
[2018-01-27] MEDS: PREGABALIN 75 MG CAP(LYRICA) PO (09:46)
[2018-01-27] MEDS: FOLIC ACID 1 MG TAB PO (09:46)
[2018-01-27] MEDS: DULoxetine 30 MG CAP (CYMBALTA) PO (09:47)
[2018-01-27] MEDS: LEVEMIR (INSULIN DETEMIR) 1 UNITS/0.01ML SC ×2 (09:47→20:42)
[2018-01-27] MEDS: DOCUSATE SODIUM 100 MG CAP PO (09:47)
[2018-01-27] MEDS: LORATADINE 10 MG TAB PO (09:47)
[2018-01-27] MEDS: HumaLOG INSULIN (NovoLOG) PER UNIT SC ×4 (09:48→20:41)
[2018-01-27 10:17] LABS: POTASSIUM RANDOM URINE 32.9 MEQ/L; SODIUM,RANDOM URINE 17 MEQ/L
[2018-01-27 10:17] LABS: CREATININE,RANDOM URINE 29.3 MG/DL
[2018-01-27 12:12] LABS: BEDSIDE GLUCOSE 455 MG/DL (70-105)
[2018-01-27 13:09] LABS: ANION GAP 9 MEQ/L (8-16); BLOOD UREA NITROGEN 15 MG/DL (7-18); CALCIUM LEVEL 9.3 MG/DL (8.5-10.1); CARBON DIOXIDE LEVEL 32 MEQ/L (21-32); CHLORIDE LEVEL 94 MEQ/L (98-107); CREATININE FOR GFR 0.75 MG/DL (0.55-1.30); GLOMERULAR FILTRATION RATE > 60.0 (>51); GLUCOSE, FASTING 428 MG/DL (70-100); MAGNESIUM LEVEL 1.8 MG/DL (1.8-2.4); SODIUM LEVEL 135 MEQ/L (136-145)
[2018-01-27 13:12] LABS: BEDSIDE GLUCOSE 446 MG/DL (70-105)
[2018-01-27] MEDS ORDERED: SLF 3 ML SYR IV (13:30)
[2018-01-27] MEDS: SLF 3 ML SYR IV ×2 (14:13→20:42)
[2018-01-27 16:51] LABS: ANION GAP 7 MEQ/L (8-16); BLOOD UREA NITROGEN 17 MG/DL (7-18); C REACTIVE PROTEIN QUANTITATIV 8.73 MG/DL (0.00-0.30); CALCIUM LEVEL 9.2 MG/DL (8.5-10.1); CARBON DIOXIDE LEVEL 33 MEQ/L (21-32); CHLORIDE LEVEL 95 MEQ/L (98-107); CREATININE FOR GFR 0.72 MG/DL (0.55-1.30); GLOMERULAR FILTRATION RATE > 60.0 (>51); GLUCOSE, FASTING 346 MG/DL (70-100); MAGNESIUM LEVEL 1.9 MG/DL (1.8-2.4); POTASSIUM SERUM 4.2 MEQ/L (3.5-5.1); SODIUM LEVEL 135 MEQ/L (136-145)
[2018-01-27 17:25] LABS: BEDSIDE GLUCOSE 328 MG/DL (70-105)
[2018-01-27 20:11] LABS: BEDSIDE GLUCOSE 400 MG/DL (70-105)
[2018-01-27 20:50] LABS: ANION GAP 7 MEQ/L (8-16); BLOOD UREA NITROGEN 19 MG/DL (7-18); CALCIUM LEVEL 8.1 MG/DL (8.5-10.1); CARBON DIOXIDE LEVEL 32 MEQ/L (21-32); CHLORIDE LEVEL 94 MEQ/L (98-107); GLOMERULAR FILTRATION RATE > 60.0 (>51); GLUCOSE, FASTING 395 MG/DL (70-100); MAGNESIUM LEVEL 1.5 MG/DL (1.8-2.4); POTASSIUM SERUM 4.2 MEQ/L (3.5-5.1); SODIUM LEVEL 133 MEQ/L (136-145)
[2018-01-27] MEDS ORDERED: HumaLOG INSULIN (NovoLOG) PER UNIT SC (21:00)
[2018-01-28] MEDS: HEPARIN SOD (PORCINE) 5000 UNITS/ML VIAL SC ×3 (05:30→20:59)
[2018-01-28] MEDS: SLF 3 ML SYR IV ×3 (05:30→20:59)
[2018-01-28] MEDS: cefTRIAXone SOD 1 GM in D5W MINI-BAG PLUS 50 ML IV (05:31)
[2018-01-28 06:08] LABS: HEMATOCRIT 38.6 % (36.0-47.0); HEMOGLOBIN 13.1 g/dl (12.0-15.5); MEAN CORPUSCULAR HEMOGLOBIN 29.1 pg (27.0-33.0); MEAN CORPUSCULAR HGB CONC 33.9 g/dl (32.0-36.5); MEAN CORPUSCULAR VOLUME 85.8 fl (80.0-96.0); PLATELET COUNT, AUTOMATED 378 10^3/uL (150-450); RED CELL DISTRIBUTION WIDTH 12.2 % (11.5-14.5); WHITE BLOOD COUNT 14.1 10^3/uL (4.0-10.0)
[2018-01-28 06:38] LABS: ANION GAP 5 MEQ/L (8-16); BLOOD UREA NITROGEN 18 MG/DL (7-18); C REACTIVE PROTEIN QUANTITATIV 5.99 MG/DL (0.00-0.30); CALCIUM LEVEL 8.8 MG/DL (8.5-10.1); CARBON DIOXIDE LEVEL 33 MEQ/L (21-32); CHLORIDE LEVEL 97 MEQ/L (98-107); CREATININE FOR GFR 0.63 MG/DL (0.55-1.30); GLOMERULAR FILTRATION RATE > 60.0 (>51); GLUCOSE, FASTING 149 MG/DL (70-100); MAGNESIUM LEVEL 1.6 MG/DL (1.8-2.4); POTASSIUM SERUM 3.8 MEQ/L (3.5-5.1); SODIUM LEVEL 135 MEQ/L (136-145)
[2018-01-28] MEDS: GABAPENTIN 300 MG CAP PO ×3 (08:22→20:57)
[2018-01-28] MEDS: DOCUSATE SODIUM 100 MG CAP PO (08:22)
[2018-01-28] MEDS: FOLIC ACID 1 MG TAB PO (08:22)
[2018-01-28] MEDS: LORATADINE 10 MG TAB PO (08:22)
[2018-01-28] MEDS: OMEPRAZOLE 20 MG CAP PO (08:23)
[2018-01-28] MEDS: DULoxetine 30 MG CAP (CYMBALTA) PO (08:23)
[2018-01-28] MEDS: ATORVASTATIN 20 MG TAB PO (08:23)
[2018-01-28] MEDS: ASPIRIN 325 MG TAB PO (08:23)
[2018-01-28] MEDS: LISINOPRIL 5 MG TAB PO (08:23)
[2018-01-28] MEDS: MAG SULF 1GM/100ML (MAG RUN) 1 GM in APPROPRIATE DILUENT 1 EA IV ×2 (08:24→08:27)
[2018-01-28] MEDS: HumaLOG INSULIN (NovoLOG) PER UNIT SC ×4 (08:24→20:58)
[2018-01-28] MEDS: LEVEMIR (INSULIN DETEMIR) 1 UNITS/0.01ML SC ×2 (08:24→20:58)
[2018-01-28 14:26] LABS: BEDSIDE GLUCOSE 342 MG/DL (70-105)
[2018-01-28 16:32] LABS: BEDSIDE GLUCOSE 363 MG/DL (70-105)
[2018-01-28 20:22] LABS: BEDSIDE GLUCOSE 365 MG/DL (70-105)
[2018-01-28] MEDS: ADVAIR HFA 230/21MCG INHALER INH (21:08)
[2018-01-29] MEDS: HEPARIN SOD (PORCINE) 5000 UNITS/ML VIAL SC (05:40)
[2018-01-29] MEDS: cefTRIAXone SOD 1 GM in D5W MINI-BAG PLUS 50 ML IV (05:40)
[2018-01-29] MEDS: SLF 3 ML SYR IV (05:40)
[2018-01-29 06:40] LABS: HEMATOCRIT 34.6 % (36.0-47.0); HEMOGLOBIN 11.9 g/dl (12.0-15.5); MEAN CORPUSCULAR HEMOGLOBIN 29.1 pg (27.0-33.0); MEAN CORPUSCULAR HGB CONC 34.4 g/dl (32.0-36.5); MEAN CORPUSCULAR VOLUME 84.6 fl (80.0-96.0); PLATELET COUNT, AUTOMATED 350 10^3/uL (150-450); RED BLOOD COUNT 4.09 10^6/uL (4.00-5.40); RED CELL DISTRIBUTION WIDTH 12.2 % (11.5-14.5); WHITE BLOOD COUNT 8.9 10^3/uL (4.0-10.0)
[2018-01-29 06:57] LABS: ESTIMATED AVERAGE GLUCOSE 352 MG/DL (60-110); HEMOGLOBIN A1c 13.9 %
[2018-01-29 07:02] LABS: ANION GAP 6 MEQ/L (8-16); BLOOD UREA NITROGEN 22 MG/DL (7-18); C REACTIVE PROTEIN QUANTITATIV 7.84 MG/DL (0.00-0.30); CALCIUM LEVEL 8.7 MG/DL (8.5-10.1); CARBON DIOXIDE LEVEL 31 MEQ/L (21-32); CHLORIDE LEVEL 97 MEQ/L (98-107); CREATININE FOR GFR 0.74 MG/DL (0.55-1.30); GLOMERULAR FILTRATION RATE > 60.0 (>51); GLUCOSE, FASTING 335 MG/DL (70-100); MAGNESIUM LEVEL 2.1 MG/DL (1.8-2.4); POTASSIUM SERUM 4.2 MEQ/L (3.5-5.1); SODIUM LEVEL 134 MEQ/L (136-145)
[2018-01-29] MEDS: LEVEMIR (INSULIN DETEMIR) 1 UNITS/0.01ML SC (07:49)
[2018-01-29] MEDS: GABAPENTIN 300 MG CAP PO (07:49)
[2018-01-29] MEDS: FOLIC ACID 1 MG TAB PO (07:49)
[2018-01-29] MEDS: HumaLOG INSULIN (NovoLOG) PER UNIT SC ×2 (07:49→12:09)
[2018-01-29] MEDS: ATORVASTATIN 20 MG TAB PO (07:50)
[2018-01-29] MEDS: ASPIRIN 325 MG TAB PO (07:50)
[2018-01-29] MEDS: LISINOPRIL 5 MG TAB PO (07:50)
[2018-01-29] MEDS: DULoxetine 30 MG CAP (CYMBALTA) PO (07:50)
[2018-01-29] MEDS: DOCUSATE SODIUM 100 MG CAP PO (07:50)
[2018-01-29] MEDS: LORATADINE 10 MG TAB PO (07:50)
[2018-01-29] MEDS: OMEPRAZOLE 20 MG CAP PO (07:50)
[2018-01-29] MEDS: ADVAIR HFA 230/21MCG INHALER INH (08:02)
[2018-01-29 11:28] LABS: BEDSIDE GLUCOSE 408 MG/DL (70-105)
== END 2018-01-29 13:23 | disposition home or self-care (01) | DRG 465 ==
LOC: M ED 00:34 → M ED INP 04:08 → M ICU 06:00 → M MSPAV 18:18
PROVIDERS: Internal Medicine
DX: N13.2 Hydronephrosis with renal and ureteral calculous obstruction (principal); E11.51 Type 2 diabetes mellitus with diabetic peripheral angiopathy without gangrene; E83.42 Hypomagnesemia; E11.65 Type 2 diabetes mellitus with hyperglycemia; I10 Essential (primary) hypertension; I25.2 Old myocardial infarction; I25.10 Atherosclerotic heart disease of native coronary artery without angina pectoris; K21.9 Gastro-esophageal reflux disease without esophagitis; F17.200 Nicotine dependence, unspecified, uncomplicated; F32.9 Major depressive disorder, single episode, unspecified; Z95.1 Presence of aortocoronary bypass graft; B96.29 Other Escherichia coli [E. coli] as the cause of diseases classified elsewhere; D72.829 Elevated white blood cell count, unspecified; Z79.899 Other long term (current) drug therapy; Z79.4 Long term (current) use of insulin; Z79.82 Long term (current) use of aspirin; E78.5 Hyperlipidemia, unspecified

== ENCOUNTER → 2018-03-21 | Outpatient (CLI) | payer OTHER ==
[2018-03-21 10:59] LABS: ANION GAP 5 MEQ/L (8-16); BLOOD UREA NITROGEN 21 MG/DL (7-18); CALCIUM LEVEL 8.9 MG/DL (8.5-10.1); CARBON DIOXIDE LEVEL 31 MEQ/L (21-32); CHLORIDE LEVEL 103 MEQ/L (98-107); CREATININE FOR GFR 0.69 MG/DL (0.55-1.30); GLOMERULAR FILTRATION RATE > 60.0 (>51); GLUCOSE, FASTING 147 MG/DL (70-100); POTASSIUM SERUM 4.5 MEQ/L (3.5-5.1); SODIUM LEVEL 139 MEQ/L (136-145)
== END ==
LOC: M LAB 09:21
DX: Z01.812 Encounter for preprocedural laboratory examination (principal); M65.321 Trigger finger, right index finger
CPT/HCPCS: 80048

== ENCOUNTER 2018-06-04 21:47 | Emergency (ER) | payer OTHER ==
[~2018-06-04] VITALS: Ht 162.6 cm; Wt 76.4 kg
[2018-06-04 21:47] VITALS: BP 107/66
[~2018-06-04 21:47] MED LIST changes: +/ESOM40CA; +AMOX/K; +ASPI1TAB PO; +ASPI325T PO; +ATOR40TA75 PO; +BUPR15TASR PO; +CEFD250S26 PO; +CEFU50TA; +CIPR-249 PO; +CLARITIN; +CYMB60CA3 PO; +DULE200A INH; -E-Z-GAS II EFFERVESCENT PACKET (SODIUM BICARB./CITRIC ACID/SIMETHICONE) As Ordered; -E-Z-HD 98% w/w 340GM SUSP BTL As Ordered; -E-Z-PAQUE 96% w/w SUSP 176GM BTL As Ordered; +FERR325T16 PO; +FOLI1TAB11 PO; +FURO40TA2 PO; +GABA-843 PO; +GABA800T4 PO; +GLIP5TAB2; +GLUC1000; +HYDR-3713 PO; +IBUP600T; +INCR1INH INH; +INSUDET SC; +INSUH10VL SC; +INSUHUMDS SC; +INSULANT SC; +INSULIN REG; +JANUVIA; +LISI-542 PO; +LISI2.5T76 PO; +LORA-243 PO; +LYRI75CA PO; +METF10004 PO; +METO1TAB87 PO; +NABU-119 PO; +NAPR-50 PO; +OMEP40CA2 PO; +ONGLYZA PO; +PENT400T47 PO; +POTA10TA67 PO; +PRED20TA; +PRED5ELUD PEG; +PROC25SU24 PR; +PYRI1TAB5 PO; +SERT-138 PO; +SIMVPOW2; +SMZ/TMP PO; +STOO100C PO; +TESS100C PO; +TIZA4CAP PO; +TOUJ1.2I SC; +VENTAER INH; +VITA500046 PO; +ZETI10TA; +ZOFR4TAB14 PO
[2018-06-04] MEDS ORDERED: LYRI150C (22:02)
[2018-06-04] MEDS ORDERED: METF-723 (22:02)
[2018-06-04] MEDS ORDERED: KEFL500C17 PO (23:12)
[2018-06-04] MEDS ORDERED: HYDR-3363 PO (23:13)
[2018-06-04] MEDS ORDERED: CEPHALEXIN 500 MG CAP PO ONE (23:15)
[2018-06-04] MEDS ORDERED: hydrOXYzine 50 MG TAB PO ONE (23:15)
== END 2018-06-04 23:23 | disposition home or self-care (01) ==
LOC: M ED 21:47
DX: L73.9 Follicular disorder, unspecified (principal); E11.9 Type 2 diabetes mellitus without complications; F32.9 Major depressive disorder, single episode, unspecified; F41.9 Anxiety disorder, unspecified; Z95.1 Presence of aortocoronary bypass graft; Z79.82 Long term (current) use of aspirin; Z79.84 Long term (current) use of oral hypoglycemic drugs; Z79.899 Other long term (current) drug therapy

== ENCOUNTER → 2018-06-07 | Outpatient (REF) | payer OTHER ==
[~2018-06-07] MED LIST changes: +HYDR-3363 PO; +KEFL500C17 PO; +LYRI150C; +METF-723
== END ==
LOC: M LAB REF 13:19
PROVIDERS: ATTEND Podiatrist Foot & Ankle Surgery
DX: L03.116 Cellulitis of left lower limb (principal)

== ENCOUNTER 2018-06-26 19:04 | Emergency (ER) | payer OTHER ==
[~2018-06-26] VITALS: Ht 162.6 cm; Wt 76.8 kg
[2018-06-26 19:05] VITALS: BP 134/73
[2018-06-26] MEDS ORDERED: CEPH500C (19:24)
[2018-06-26] MEDS ORDERED: CYCL5TAB (19:24)
[2018-06-26] MEDS ORDERED: predniSONE 20 MG TAB PO ONE (20:00)
[2018-06-26] MEDS ORDERED: PRED10TA2 PO (20:01)
== END 2018-06-26 20:12 | disposition home or self-care (01) ==
LOC: M ED 19:04
DX: R21 Rash and other nonspecific skin eruption (principal); W57.XXXA Bitten or stung by nonvenomous insect and other nonvenomous arthropods, initial encounter; F17.210 Nicotine dependence, cigarettes, uncomplicated; Z79.899 Other long term (current) drug therapy

== ENCOUNTER → 2018-07-10 | Outpatient (REF) | payer OTHER ==
[~2018-07-10] MED LIST changes: +CEPH500C; +CYCL5TAB; +PRED10TA2 PO
[2018-07-10 17:33] LABS: INFLUENZA A AMPLIFICATION NEGATIVE (NEGATIVE); INFLUENZA B AMPLIFICATION NEGATIVE (NEGATIVE)
== END ==
LOC: M LAB REF 09:12
PROVIDERS: ATTEND Nurse Practitioner Family
DX: J11.1 Influenza due to unidentified influenza virus with other respiratory manifestations (principal)

== ENCOUNTER 2018-08-23 06:26 | Observation (INO) | payer OTHER ==
[~2018-08-23] VITALS: Ht 152.4 cm; Wt 77.2 kg
[~2018-08-23 06:26] MED LIST changes: -/ESOM40CA; +ASPI-1 PO; -ASPI1TAB PO; -ASPI325T PO; +ASPI81TA26 PO; -CYCL5TAB; +CYCL5TAB PO; -LYRI150C; +LYRI150C PO; -METF-723; +METF-723 PO; -NAPR-50 PO; +NAPR-837 PO; +NEXI1CAP3
[2018-08-23] MEDS ORDERED: NS 1,000 ML IV ONE ×2 (06:45→09:00)
[2018-08-23] MEDS ORDERED: HumuLIN R (REGULAR) INSULIN (NovoLIN R) **100U/ML** PER UNIT IV ONE (07:00)
[2018-08-23 07:24] LABS: BASO # 0.1 10^3/uL (0.0-0.2); BASO % 0.6 % (0.0-1.0); EOS # 0.1 10^3/uL (0.0-0.50); EOS % 1.6 % (0.0-3.0); HEMATOCRIT 47.5 % (36.0-47.0); HEMOGLOBIN 16.2 g/dl (12.0-15.5); LYMPH # 1.5 10^3/uL (1.5-4.5); LYMPH % 18.1 % (24.0-44.0); MEAN CORPUSCULAR HEMOGLOBIN 29.1 pg (27.0-33.0); MEAN CORPUSCULAR HGB CONC 34.1 g/dl (32.0-36.5); MEAN CORPUSCULAR VOLUME 85.4 fl (80.0-96.0); MONO # 0.4 10^3/uL (0.0-0.8); MONO % 4.9 % (0.0-5.0); NEUTROPHILS # 6.1 10^3/uL (1.8-7.7); NEUTROPHILS % 74.3 % (36.0-66.0); PLATELET COUNT, AUTOMATED 263 10^3/uL (150-450); RED BLOOD COUNT 5.56 10^6/uL (4.00-5.40); WHITE BLOOD COUNT 8.1 10^3/uL (4.0-10.0)
[2018-08-23 08:01] LABS: ACETONE/KETONE 7.38 MG/DL (<2.81); ALBUMIN 3.6 GM/DL (3.2-5.2); ALT/SGPT 14 U/L (12-78); BILIRUBIN,DIRECT 0.1 MG/DL (0.0-0.2); BILIRUBIN,TOTAL 0.4 MG/DL (0.2-1.0); BLOOD UREA NITROGEN 17 MG/DL (7-18); CALCIUM LEVEL 9.3 MG/DL (8.5-10.1); CARBON DIOXIDE LEVEL 30 MEQ/L (21-32); CHLORIDE LEVEL 87 MEQ/L (98-107); CPK CREATINE PHOSPHOKINASE 38 U/L (26-192); CREATININE FOR GFR 1.08 MG/DL (0.55-1.30); ETHYL ALCOHOL (ETHANOL) < 0.003 % (0.000-0.010); GLOMERULAR FILTRATION RATE 56.9 (>51); GLUCOSE, FASTING 882 MG/DL (70-100); LIPASE 87 U/L (73-393); MB/CK RELATIVE INDEX 5.79 (< OR =4); POTASSIUM SERUM 4.8 MEQ/L (3.5-5.1); SODIUM LEVEL 126 MEQ/L (136-145); TOTAL PROTEIN 7.8 GM/DL (6.4-8.2); TROPONIN I < 0.02 NG/ML (< 0.10)
[2018-08-23] MEDS: FERROUS SULFATE 325MG TAB PO SCH ×2 (09:00→21:21)
[2018-08-23] MEDS: raNITIdine SYRUP 150 MG/10 ML UDC PO SCH ×2 (09:00→21:22)
[2018-08-23] MEDS: DULoxetine 30 MG CAP (CYMBALTA) PO SCH ×2 (09:00→21:21)
[2018-08-23] MEDS: LEVEMIR (INSULIN DETEMIR) 1 UNITS/0.01ML SC SCH ×2 (09:00→21:23)
[2018-08-23] MEDS: NICOTINE 21MG/24HR 1 EA TRANSDERMAL TD SCH (09:00)
--- NOTE | 2018-08-23 09:00 | REP ---
Chest x-ray: Two views. History: Cough. Comparison study: January 21, 2018. Findings: EKG monitoring electrodes overlie the chest. The patient is status post prior median sternotomy. There are degenerative changes in the thoracic spine. The heart is not enlarged. Pleural angles are sharp. Lung snowden are clear. Impression: Prior sternotomy. No active disease. Electronically Signed by Vincenzo Almodovar MD 08/23/2018 10:44 A
[2018-08-23] MEDS ORDERED: FERR325T3 PO (09:36)
[2018-08-23] MEDS ORDERED: MUPI2OI TOP (09:36)
[2018-08-23] MEDS ORDERED: RANI150T14 PO (09:36)
[2018-08-23] MEDS ORDERED: FLUT1INH3 INH (09:36)
[2018-08-23] MEDS ORDERED: ADME100I SC (09:36)
[2018-08-23] MEDS ORDERED: BASA100I SC (09:36)
[2018-08-23] MEDS ORDERED: IPRATROPIUM 0.5MG/ALBUTEROL 2.5MG INH SOL UD 3ML (DUONEB)(J7620) NEB PRN (10:30)
[2018-08-23] MEDS ORDERED: DEXTROSE 50% 50 ML SYRINGE IV PRN (10:30)
[2018-08-23] MEDS ORDERED: GLUCOSE 4 GM CHEW TABLET PO PRN (10:30)
[2018-08-23] MEDS ORDERED: GLUCAGON FOR INJ 1 MG VIAL (J1610) SC PRN (10:30)
[2018-08-23] MEDS ORDERED: CYCLOBENZAPRINE 5MG TABLET PO PRN (10:45)
[2018-08-23] MEDS ORDERED: DOCUSATE SODIUM 100 MG CAP PO PRN (10:45)
[2018-08-23] MEDS ORDERED: LevoFLOXacin IV 750 MG in APPROPRIATE DILUENT 1 EA IV ONE (11:00)
[2018-08-23] MEDS ORDERED: NS 1,000 ML IV SCH (11:00)
[2018-08-23] MEDS ORDERED: ISOVUE-370 76% 100ML VIAL (Q9967) As Ordered ONE (11:02)
--- NOTE | 2018-08-23 11:52 | HPEPDOC ---
[facility] Medical History & Physical Date of Admission August 23, 2018 History and Physical CHIEF COMPLAINT: [cough, chest pain] HISTORY OF PRESENT ILLNESS: 52-year-old female with past medical history of coronary artery disease status post myocardial infarction (OH) 2016, status post coronary artery bypass grafting (CABG) 2016, history of non oxygen dependent chronic pulmonary obstructive disease (COPD), chronic active tobacco abuse, hypertension, diabetes, hyperlipidemia presents to the emergency room with cough and chest pain. Patient had nonproductive cough and chest pain with coughing. Patient also noted that she had substernal chest mass that seems to cause intermittent pain at times. She has a history of CABG and had ultrasound done of this mass as an outpatient. Radiology recommended CT scan that her insurance would not cover and therefore she did not obtain one. Patient has a history of COPD and still smokes a 1-1/2 pack of cigarettes per day. Patient states that she had also been noncompliant with her insulin due to stress at home taking care of her grandsons at times. Patient states that her last insulin was this past prior to her admission to the hospital. Patient also have been evaluated and was being treated for URI with prednisone as outpatient. Patient has a podiatry follow-up for her diabetic foot ulcer on her heel and also is plan to see ENT this coming Wednesday for her cough and congestion and also follow- up with Dr. Hernandez from previous appointment in July. Patient denies of any abdominal pain, diarrhea, dysuria. Patient had increased stress level due to caring for her 2 grandsons. Patient admits noncompliance intermittently to her insulin. Patient states she had been compliant with her other medication except for her long-acting insulin. In the ER, patient complained of chest pain and cough she was found to have a blood glucose level of 882 but no anion gap. The patient was given regular insulin by the emergency room (ER) attending and IV fluid, and patient is being admitted for further evaluation and treatment for hyperglycemia. Patient will be treated for noncompliance induced hyperglycemia with intervening factor prednisone use. Chest pain most suspected from her cough but will obtain CT of the chest to evaluate her numbness substernal chest mass. He also be treated for COPD exacerbation/URI. Patient encouraged to follow-up with wound care for her left foot heel diabetic ulcer and with ENT as outpatient. PAST MEDICAL HISTORY: Hypertension. Diabetes. Hyperlipidemia. History of coronary artery disease status post OH in 2016. Chronic active tobacco abuser. Hx of intermittent noncompliance PAST SURGICAL HISTORY: Status post CABG 2016. SOCIAL HISTORY: 30-pack year history of smoking. She still smokes approximately a pack a day and half per day. She denies the use of illicit drugs. FAMILY HISTORY: Negative for coronary disease. ALLERGIES: Please see below. REVIEW OF SYSTEMS: 12 point review system negative other than those described in HPI. HOME MEDICATIONS: Please see below. PHYSICAL EXAMINATION: VITAL SIGNS: Please see below GENERAL APPEARANCE: Resting comfortably, intermittent dry cough HEENT: Normocephalic, PERRLA, Mucous moist, CARDIOVASCULAR: S1,S2, pulse present, regularly, regular; substernal chest mass(history of CABG) LUNGS: Equal air entry b/l but decreased breath sounds laterally, no rales ABDOMEN: Soft, BS present, no tenderness, no guarding GENITOURINARY: No [place] EXTREMITIES: B/L no edema, capillary refill present SKIN: Warm, No fever NEUROLOGICAL: Cranial nerves grossly intact PSYCHIATRIC: Normal mood and affect for current situation LABORATORY DATA: See below. IMAGING: [cxr:Prior sternotomy. No active disease.] MICROBIOLOGY: Please see below. Assessment and plan: 52-year-old female with past medical history of coronary artery disease status post myocardial infarction (OH) 2016, status post coronary artery bypass grafti ng (CABG) 2016, history of non oxygen dependent chronic pulmonary obstructive disease (COPD), chronic active tobacco abuse, hypertension, diabetes, hyperlipidemia presents to the emergency room with cough and chest pain. In the ER, patient complained of chest pain and cough she was found to have a blood glucose level of 882 but no anion gap. The patient was given regular insulin by the emergency room (ER) attending and IV fluid, and patient is being admitted for further evaluation and treatment for hyperglycemia. Patient treated for noncompliance induced hyperglycemia with intervening factor prednisone use. Chest pain most suspected from her cough but will obtain CT of the chest to evaluate her numbness substernal chest mass. He also be treated for COPD exacerbation/URI. Patient encouraged to follow-up with wound care for her left foot heel diabetic ulcer and with ENT as outpatient. Diabetes, intermittent non-compliant induced hyperglycemia -Finger sick monitoring, coverage -Resume home regimen including basal insulin -Resume pregabalin -Hold metformin -Oral prednisone -Hemoglobin A1c COPD exacerbation, non-oxygen dependent -Smoking cessation recommended -Nicotine patch -Respiratory treatment -Levaquin, prednisone - blood culture pending Chest pain and mid substernal chest mass (history of CABG) -Telemetry -Serial cardiac enzyme -CT of the chest for further evaluation of the mass ordered Cough, congestion -Patient has an appointment with ENT 08/26/18 this coming Wednesday with Dr. Cameron Left foot heel diabetic ulcer, stable -Follow up outpatient with wound care -Patient states that she will make appointment History of CAD, OH, CABG 2015 -Statin, aspirin, pentoxifylline -Please follow up with PCP and cardiology as outpatient Hypertension -Lisinopril Hyperlipidemia -Statin Anemia -Iron supplement, folic acid GI medications -Resume omeprazole, ranitidine Resume Cymbalta DVT prophylaxis with heparin subcutaneous Vital Signs Vital Signs Date Time Temp Pulse Resp B/P (MAP) Pulse Ox O2 Delivery O2 Flow Rate FiO2 08/23/18 09:00 141/76 (97) 08/23/18 08:56 97 96 08/23/18 07:00 16 08/23/18 06:45 Room Air 08/23/18 06:26 97.5 Laboratory Data Labs 24H Laboratory Tests 2 08/23/18 06:42: Lactic Acid Level 1.7 08/23/18 06:47: Immature Granulocyte % (Auto) 0.5, White Blood Count 8.1, Red Blood Count 5.56H, Hemoglobin 16.2H, Hematocrit 47.5H, Mean Corpuscular Volume 85.4, Mean Corpuscular Hemoglobin 29.1, Mean Corpuscular Hemoglobin Concent 34.1, Red Cell Distribution Width 12.7, Platelet Count 263, Neutrophils (%) (Auto) 74.3H, Lymphocytes (%) (Auto) 18.1L, Monocytes (%) (Auto) 4.9, Eosinophils (%) (Auto) 1.6, Basophils (%) (Auto) 0.6, Neutrophils # (Auto) 6.1, Lymphocytes # (Auto) 1.5, Monocytes # (Auto) 0.4, Eosinophils # (Auto) 0.1, Basophils # (Auto) 0.1, Nucleated Red Blood Cells % (auto) 0.0 08/23/18 06:48: Anion Gap 9, Glomerular Filtration Rate 56.9, Osmolality 321H, Calcium Level 9.3, Aspartate Amino Transf (AST/SGOT) 8, Alanine Aminotransferase (ALT/SGPT) 14, Alkaline Phosphatase 259H, Total Bilirubin 0.4, Direct Bilirubin 0.1, Total Creatine Kinase 38, Creatine Kinase MB 2.0, Creatine Kinase MB Relative Index 5.79H, Troponin I < 0.02, Total Protein 7.8, Albumin 3.6, Albumin/Globulin Ratio 0.86L, Lipase 87, Ethyl Alcohol Level < 0.003, B-Hydroxybutyrate 7.38H 08/23/18 07:30: POC Glucose (Misc Panel) > 700*H, POC Sodium (Misc Panel) 129L, POC Potassium (Misc Panel) 3.7, POC Chloride (Misc Panel) 89L, POC Total CO2 (Misc Panel) 31.0H, POC Blood Urea Nitrogen (Misc Panel 20, POC Ionized Calcium (Misc Panel) 4.7, POC Creatinine (Misc Panel) 0.6, POC Hematocrit (Misc Panel) 45.0 08/23/18 11:16: CBC/BMP Laboratory Tests 08/23/18 06:47 Red Blood Count 5.56 H, Mean Corpuscular Volume 85.4, Mean Corpuscular Hemoglobin 29.1, Mean Corpuscular Hemoglobin Concent 34.1, Red Cell Distribution Width 12.7, Neutrophils (%) (Auto) 74.3 H, Lymphocytes (%) (Auto) 18.1 L, Monocytes (%) (Auto) 4.9, Eosinophils (%) (Auto) 1.6, Basophils (%) (Auto) 0.6, Neutrophils # (Auto) 6.1, Lymphocytes # (Auto) 1.5, Monocytes # (Auto) 0.4, Eosinophils # (Auto) 0.1, Basophils # (Auto) 0.1 08/23/18 06:48 Microbiology Microbiology 08/23/18 Blood Culture, Received Pending Home Medications Scheduled Aspirin (Aspirin) 325 Mg Tab, 325 MG PO DAILY Atorvastatin Calcium (Atorvastatin Calcium) 40 Mg Tab, 40 MG PO DAILY Duloxetine Hcl (Cymbalta) 60 Mg Cap, 60 MG PO BID Ferrous Sulfate (Ferrous Sulfate) 325 Mg Tablet.dr, 325 MG PO BID Fluticasone Propion/Salmeterol (Fluticasone-Salmeterol 232-14) 1 Each Aer.pow.ba, 1 PUFF INH BID Folic Acid (Folic Acid) 1 Mg Tab, 1 MG PO DAILY Insulin Glargine,Hum.rec.anlog (Basaglar Kwikpen U-100) 100 Unit/1 Ml Insuln.pen, 50 UNIT SC BID Insulin Lispro (Admelog) 100 Unit/1 Ml Vial, 0 SC ACHS PER SLIDING SCALE Lisinopril (Lisinopril) 5 Mg Tab, 5 MG PO DAILY Loratadine (Loratadine) 10 Mg Tab, 10 MG PO DAILY Metformin HCl (Metformin HCl ER) 500 Mg Tab, 1,000 MG PO BIDWM Mupirocin (Mupirocin) 22 Gm Oint...g., 1 DOSE TOP DAILY APPLY TO LEFT FOOT Omeprazole (Omeprazole) 40 Mg Cap, 40 MG PO DAILY Pentoxifylline (Pentoxifylline) 400 Mg Tabcr, 400 MG PO TID Pregabalin (Lyrica) 150 Mg Cap, 150 MG PO TID Ranitidine HCl (Ranitidine HCl) 150 Mg Tablet, 1 TAB PO BID Scheduled PRN Albuterol Sulfate (Ventolin Hfa) 108 Mcg/Act Aer, 2 PUFF INH Q4H PRN for SHORTNESS OF BREATH Cyclobenzaprine HCl (Cyclobenzaprine HCl) 5 Mg Tab, 5 MG PO Q12H PRN for MUSCLE SPASMS Docusate Sodium (Stool Softener) 100 Mg Cap, 100 MG PO BID PRN for CONSTIPATION Allergies Coded Allergies: Grapefruit (Unverified Allergy, Unknown, 08/23/18) MARIELLE WREN MD August 23, 2018 11:51
[2018-08-23 11:59] LABS: MB/CK RELATIVE INDEX 5.43 (< OR =4)
[2018-08-23 12:46] LABS: HEMOGLOBIN A1c 14.2 %
[2018-08-23] MEDS: HumaLOG INSULIN (NovoLOG) PER UNIT SC SCH ×2 (13:55→17:17)
[2018-08-23] MEDS: IPRATROPIUM 0.5MG/ALBUTEROL 2.5MG INH SOL UD 3ML (DUONEB)(J7620) NEB SCH ×2 (14:00→20:45)
--- NOTE | 2018-08-23 14:29 | REP ---
CT chest with IV contrast: History: Chest mass. Comparison chest CT study December 27, 2015. Comparison chest x-ray August 23, 2018. CT contrast dose: 75 mL of intravenous Isovue [address] findings: Digital preliminary interventional cardiologist radiograph shows monitoring electrodes and median sternotomy wires. No extrathoracic mass is observed. Median sternotomy wires are seen. Some vascular calcification is noted. There are scattered normal-sized mediastinal lymph nodes. The largest of these is just superior to the left mainstem bronchus measuring 10 mm in short axis dimension by 17 mm. This is unchanged from the 2016 prior study. No pleural or pericardial effusion is seen. No hilar mass or adenopathy is observed. Lung window settings show mild linear fibrosis in the lingula at the left lung base. The lung snowden are otherwise clear. No pulmonary mass or significant pulmonary nodule is appreciated. There is a small nodule in the left adrenal gland measuring 1.8 cm in greatest diameter. This may be an adrenal adenoma and indeed, it is unchanged compared to the study done December 27, 2015. No right adrenal lesion. Visualized upper abdominal structures are otherwise unremarkable. Impression: Prior median sternotomy. Vascular calcification including coronary calcification. Otherwise no acute disease. Electronically Signed by Vincenzo Almodovar MD 08/23/2018 10:31 P
[2018-08-23] MEDS ORDERED: LEVEMIR (INSULIN DETEMIR) 1 UNITS/0.01ML SC ONE (15:00)
[2018-08-23 15:05] VITALS: BP 143/70
[2018-08-23] MEDS: PENTOXIFYLLINE 400 MG TAB PO SCH ×3 (15:20→21:22)
[2018-08-23] MEDS: ATORVASTATIN 20 MG TAB PO SCH (15:20)
[2018-08-23] MEDS: OMEPRAZOLE 20 MG CAP PO SCH (15:21)
[2018-08-23] MEDS: LORATADINE 10 MG TAB PO SCH (15:22)
[2018-08-23] MEDS: ASPIRIN 325 MG TAB PO SCH (15:22)
[2018-08-23] MEDS: LISINOPRIL 5 MG TAB PO SCH (15:22)
[2018-08-23] MEDS: predniSONE 20 MG TAB PO SCH (15:22)
[2018-08-23] MEDS: FOLIC ACID 1 MG TAB PO SCH (15:22)
[2018-08-23] MEDS: PREGABALIN 75 MG CAP(LYRICA) PO SCH ×3 (15:23→21:22)
[2018-08-23] MEDS: HEPARIN SOD (PORCINE) 5000 UNITS/ML VIAL SC SCH ×2 (15:25→21:21)
[2018-08-23] MEDS ORDERED: HumaLOG INSULIN (NovoLOG) PER UNIT SC STA (17:13)
--- NOTE | 2018-08-23 19:23 | ECGEPIP ---
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
[2018-08-23] MEDS ORDERED: HumaLOG INSULIN (NovoLOG) PER UNIT SC SCH (21:00)
[2018-08-23 22:00] VITALS: BP 134/68
[2018-08-24] MEDS: IPRATROPIUM 0.5MG/ALBUTEROL 2.5MG INH SOL UD 3ML (DUONEB)(J7620) NEB SCH ×3 (02:00→13:02)
[2018-08-24] MEDS: HEPARIN SOD (PORCINE) 5000 UNITS/ML VIAL SC SCH ×2 (05:33→14:00)
[2018-08-24 06:00] VITALS: BP 127/65
[2018-08-24 06:16] LABS: HEMOGLOBIN 14.2 g/dl (12.0-15.5); MEAN CORPUSCULAR HEMOGLOBIN 28.9 pg (27.0-33.0); MEAN CORPUSCULAR HGB CONC 33.8 g/dl (32.0-36.5); MEAN CORPUSCULAR VOLUME 85.4 fl (80.0-96.0); PLATELET COUNT, AUTOMATED 198 10^3/uL (150-450); RED BLOOD COUNT 4.92 10^6/uL (4.00-5.40); WHITE BLOOD COUNT 9.1 10^3/uL (4.0-10.0)
[2018-08-24 06:42] LABS: BLOOD UREA NITROGEN 13 MG/DL (7-18); CALCIUM LEVEL 8.8 MG/DL (8.5-10.1); CARBON DIOXIDE LEVEL 27 MEQ/L (21-32); CHLORIDE LEVEL 100 MEQ/L (98-107); CREATININE FOR GFR 0.65 MG/DL (0.55-1.30); GLOMERULAR FILTRATION RATE > 60.0 (>51); GLUCOSE, FASTING 362 MG/DL (70-100); MAGNESIUM LEVEL 1.8 MG/DL (1.8-2.4); POTASSIUM SERUM 4.2 MEQ/L (3.5-5.1); SODIUM LEVEL 134 MEQ/L (136-145)
[2018-08-24] MEDS: HumaLOG INSULIN (NovoLOG) PER UNIT SC SCH ×2 (08:20→11:42)
[2018-08-24] MEDS: PENTOXIFYLLINE 400 MG TAB PO SCH (08:21)
[2018-08-24] MEDS: DULoxetine 30 MG CAP (CYMBALTA) PO SCH (08:21)
[2018-08-24] MEDS: ATORVASTATIN 20 MG TAB PO SCH (08:21)
[2018-08-24] MEDS: FERROUS SULFATE 325MG TAB PO SCH (08:21)
[2018-08-24] MEDS: LEVEMIR (INSULIN DETEMIR) 1 UNITS/0.01ML SC SCH (08:21)
[2018-08-24] MEDS: LORATADINE 10 MG TAB PO SCH (08:21)
[2018-08-24] MEDS: OMEPRAZOLE 20 MG CAP PO SCH (08:21)
[2018-08-24 08:23] VITALS: BP 112/54
[2018-08-24] MEDS: raNITIdine SYRUP 150 MG/10 ML UDC PO SCH (08:23)
[2018-08-24] MEDS: predniSONE 20 MG TAB PO SCH (08:23)
[2018-08-24] MEDS: PREGABALIN 75 MG CAP(LYRICA) PO SCH (08:23)
[2018-08-24] MEDS: LISINOPRIL 5 MG TAB PO SCH (08:23)
[2018-08-24] MEDS: FOLIC ACID 1 MG TAB PO SCH (08:23)
[2018-08-24] MEDS: NICOTINE 21MG/24HR 1 EA TRANSDERMAL TD SCH (08:23)
[2018-08-24] MEDS: ASPIRIN 325 MG TAB PO SCH (08:23)
[2018-08-24] MEDS ORDERED: METF-723 PO (13:32)
[2018-08-24] MEDS ORDERED: PRED50TA PO (13:32)
[2018-08-24] MEDS ORDERED: LEVA750T7 PO (13:32)
--- NOTE | 2018-08-24 13:47 | DS.PDOC ---
Discharge Summary General Date of Admission August 23, 2018 at 10:30 Date of Discharge 08/24/18 Discharge Summary PROCEDURES PERFORMED DURING STAY: [None]. ADMITTING DIAGNOSES: Diabetes, intermittent non-compliant induced hyperglycemia COPD exacerbation, non-oxygen dependent Chest pain and mid substernal chest mass (history of CABG) Cough, congestion Left foot heel diabetic ulcer, stable History of CAD, MS, CABG 2016 Hypertension Hyperlipidemia Anemia DISCHARGE DIAGNOSES: Diabetes, intermittent non-compliant induced hyperglycemia COPD exacerbation, non-oxygen dependent Chest pain and mid substernal chest mass (history of CABG) Cough, congestion Left foot heel diabetic ulcer, stable History of CAD, MS, CABG 2016 Hypertension Hyperlipidemia Anemia COMPLICATIONS/CHIEF COMPLAINT: Copd Exacerbation Diabetes Melllitis. HISTORY OF PRESENT ILLNESS: [52-year-old female with past medical history of coronary artery disease status post myocardial infarction (MS) 2015, status post coronary artery bypass grafting (CABG) 2015, history of non oxygen dependent chronic pulmonary obstructive disease (COPD), chronic active tobacco abuse, hypertension, diabetes, hyperlipidemia presents to the emergency room with cough and chest pain. Patient had nonproductive cough and chest pain with coughing. Patient also noted that she had substernal chest mass that seems to cause intermittent pain at times. She has a history of CABG and had ultrasound done of this mass as an outpatient. Radiology recommended CT scan that her insurance would not cover and therefore she did not obtain one. Patient has a history of COPD and still smokes a 1-1/2 pack of cigarettes per day. Patient states that she had also been noncompliant with her insulin due to stress at home taking care of her grandsons at times. Patient states that her last insulin was this past prior to her admission to the hospital. Patient also have been evaluated and was being treated for URI with prednisone as outpatient. Patient has a podiatry follow-up for her diabetic foot ulcer on her heel and also is plan to see ENT this coming Wednesday for her cough and congestion and also follow- up with Dr. Hernandze from previous appointment in July. Patient denies of any abdominal pain, diarrhea, dysuria. Patient had increased stress level due to caring for her 2 grandsons. Patient admits noncompliance intermittently to her insulin. Patient states she had been compliant with her other medication except for her long-acting insulin. In the ER, patient complained of chest pain and cough she was found to have a blood glucose level of 882 but no anion gap. The patient was given regular insulin by the emergency room (ER) attending and IV fluid, and patient is being admitted for further evaluation and treatment for hyperglycemia. Patient will be treated for noncompliance induced hyperglycemia with intervening factor prednisone use. Chest pain most suspected from her cough but will obtain CT of the chest to evaluate her numbness substernal chest mass. He also be treated for COPD exacerbation/URI. Patient encouraged to follow-up with wound care for her left foot heel diabetic ulcer and with ENT as outpatient.]. HOSPITAL COURSE: [ 52-year-old female with past medical history of coronary artery disease status post myocardial infarction (MS) 2016, status post coronary artery bypass grafting (CABG) 2016, history of non oxygen dependent chronic pulmonary obstructive disease (COPD), chronic active tobacco abuse, hypertension, diabetes, hyperlipidemia presents to the emergency room with cough and chest pain. In the ER, patient complained of chest pain and cough she was found to have a blood glucose level of 882 but no anion gap. The patient was given regular insulin by the emergency room (ER) attending and IV fluid, and patient is being admitted for further evaluation and treatment for hyperglycemia. Patient treated for noncompliance induced hyperglycemia with intervening factor prednisone use. Chest pain most suspected from her cough and CT of the chest to evaluate her numbness substernal chest mass. He also be treated for COPD exacerbation/URI. Patient encouraged to follow-up with wound care for her left foot heel diabetic ulcer and with ENT as outpatient. Patient had no acute issues overnight. Patient's sugar better controlled but compliance strongly advised including to insulin and diabetic diet. In the hospital patient drank soda without it being diet and thus her sugar was elevated. Incidentally patient stat es that she has lost close to 30 pounds with diet and exercise at home. She has a history of CABG and had a CT done with the results below. Patient to follow up with PCP and her cardiology, cardiology Dr. Pugh, and ENT within 1 week. Patient eager to return home today and agree to being compliant to medical therapy and diabetic diet and also trying to stop smoking. Diabetes, intermittent non-compliant induced hyperglycemia -Finger sick monitoring, coverage -Resume home regimen including basal insulin -Resume pregabalin -Hold metformin for one more day due to CT chest with contrast study -Oral prednisone, prescription given for 5 more day -Hemoglobin A1c 14.2 COPD exacerbation, non-oxygen dependent -Smoking cessation recommended -Nicotine patch -Respiratory treatment -Levaquin, prednisone; prescription for antibiotic and prednisone given - blood culture pending, please follow up with PCP regarding final report Chest pain and mid substernal chest mass (history of CABG) -Telemetry -Serial cardiac enzyme, troponin negative -CT of the chest for further evaluation of the mass: Prior median sternotomy. Vascular calcification including coronary calcification. Otherwise no acute disease. -Patient states that she had lost weight intentionally from 195-164 with exercise and diet. She has a history of CABG and CT found prior median sternotomy with electrodes the median sternotomy wire. Patient has a patient support partner that she will follow up with within 1 week. Patient states that she will see Dr. Pugh regarding this matter. Please follow with PCP and cardiology. Cough, congestion -Patient has an appointment with ENT 08/26/18 this coming Wednesday with Dr. Cameron Left foot heel diabetic ulcer, stable -Follow up outpatient with wound care -Patient states that she will make appointment History of CAD, MS, CABG 2015 -Statin, aspirin, pentoxifylline -Please follow up with PCP and cardiology as outpatient Hypertension -Lisinopril Hyperlipidemia -Statin Anemia -Iron supplement, folic acid GI medications -Resume omeprazole, ranitidine Resume Cymbalta ]. DISCHARGE MEDICATIONS: Please see below. ALLERGIES: Please see below. PHYSICAL EXAMINATION ON DISCHARGE: VITAL SIGNS: Please see below GENERAL APPEARANCE: Resting comfortably HEENT: Normocephalic, PERRLA, Mucous moist, CARDIOVASCULAR: S1,S2, pulse present, regularly, regular; substernal chest mass(history of CABG) LUNGS: Equal air entry b/l but decreased breath sounds laterally, no rales ABDOMEN: Soft, BS present, no tenderness, no guarding GENITOURINARY: No Har[place] EXTREMITIES: B/L no edema, capillary refill present SKIN: Warm, No fever NEUROLOGICAL: Cranial nerves grossly intact PSYCHIATRIC: Normal mood and affect for current situation LABORATORY DATA: Please see below. IMAGING: [See above] PROGNOSIS: [improved] ACTIVITY: [As tolerated]. DIET: [Carbohydrate consistent diet, address need for compliance DISPOSITION: Home DISCHARGE CONDITION: [Stable]. TIME SPENT ON DISCHARGE: Greater than [45] minutes. Vital Signs/I&Os Vital Signs Date Time Temp Pulse Resp B/P (MAP) Pulse Ox O2 Delivery O2 Flow Rate FiO2 08/24/18 08:23 112/54 08/24/18 06:00 97.3 85 18 97 08/23/18 14:52 Room Air I&O- Last 24 Hours up to 6 AM 08/24/18 06:00 Intake Total 3380 ml Output Total 600 ml Balance 2780 ml Laboratory Data Labs 24H Laboratory Tests 2 08/23/18 13:35: Bedside Glucose (Misc Panel) 531*H 08/23/18 16:30: Bedside Glucose Confirm (Misc) 530*H, Total Creatine Kinase 30, Creatine Kinase MB 2.0, Creatine Kinase MB Relative Index 6.00H 08/23/18 17:07: Bedside Glucose (Misc Panel) 533*H 08/23/18 18:49: Bedside Glucose (Misc Panel) 470H 08/23/18 20:01: Bedside Glucose Confirm (Misc) 414*H 08/23/18 20:36: Bedside Glucose (Misc Panel) 487H 08/23/18 22:37: Bedside Glucose (Misc Panel) 387H 08/24/18 02:36: Bedside Glucose (Misc Panel) 365H 08/24/18 05:28: Nucleated Red Blood Cells % (auto) 0.0, Anion Gap 7L, Glomerular Filtration Rate > 60.0, Blood Urea Nitrogen 13, Creatinine 0.65, Sodium Level 134#L, Potassium Level 4.2, Chloride Level 100, Carbon Dioxide Level 27, Calcium Level 8.8, Magnesium Level 1.8 08/24/18 06:06: Bedside Glucose (Misc Panel) 362H 08/24/18 11:01: Bedside Glucose (Misc Panel) 463H 08/24/18 11:37: Bedside Glucose (Misc Panel) 393H 08/24/18 12:02: Bedside Glucose (Misc Panel) 344H CBC/BMP Laboratory Tests 08/24/18 05:28 Red Blood Count 4.92, Mean Corpuscular Volume 85.4, Mean Corpuscular Hemoglobin 28.9, Mean Corpuscular Hemoglobin Concent 33.8, Red Cell Distribution Width 12.5, Calcium Level 8.8 FSBS Laboratory Tests Test 08/23/18 13:35 08/23/18 17:07 08/23/18 18:49 08/23/18 20:36 Range/Units Bedside Glucose (Misc Panel) 531 533 470 487 70-105 MG/DL Test 08/23/18 22:37 08/24/18 02:36 08/24/18 06:06 08/24/18 11:01 Range/Units Bedside Glucose (Misc Panel) 387 365 362 463 70-105 MG/DL Test 08/24/18 11:37 08/24/18 12:02 Range/Units Bedside Glucose (Misc Panel) 393 344 70-105 MG/DL Microbiology Microbiology 08/23/18 Blood Culture - Preliminary, Resulted No growth after 24 hours . All specim... 08/23/18 Blood Culture - Preliminary, Resulted No growth after 24 hours . All specim... 08/23/18 Blood Culture - Preliminary, Resulted No growth after 24 hours . All specim... Discharge Medications Scheduled Aspirin (Aspirin) 325 Mg Tab, 325 MG PO DAILY, (Reported) Atorvastatin Calcium (Atorvastatin Calcium) 40 Mg Tab, 40 MG PO DAILY, (Reported) Duloxetine Hcl (Cymbalta) 60 Mg Cap, 60 MG PO BID, (Reported) Ferrous Sulfate (Ferrous Sulfate) 325 Mg Tablet.dr, 325 MG PO BID, (Reported) Fluticasone Propion/Salmeterol (Fluticasone-Salmeterol 232-14) 1 Each Aer.pow.ba, 1 PUFF INH BID, (Reported) Folic Acid (Folic Acid) 1 Mg Tab, 1 MG PO DAILY, (Reported) Insulin Glargine,Hum.rec.anlog (Basaglar Kwikpen U-100) 100 Unit/1 Ml Insuln.pen, 50 UNIT SC BID, (Reported) Insulin Lispro (Admelog) 100 Unit/1 Ml Vial, 0 SC ACHS, (Reported) PER SLIDING SCALE Levofloxacin (Levaquin) 750 Mg Tablet, 750 MG PO Q48H Lisinopril (Lisinopril) 5 Mg Tab, 5 MG PO DAILY, (Reported) Loratadine (Loratadine) 10 Mg Tab, 10 MG PO DAILY, (Reported) Metformin HCl (Metformin HCl ER) 500 Mg Tab, 1,000 MG PO BIDWM Start date on 08/25/18 Mupirocin (Mupirocin) 22 Gm Oint...g., 1 DOSE TOP DAILY, (Reported) APPLY TO LEFT FOOT Omeprazole (Omeprazole) 40 Mg Cap, 40 MG PO DAILY, (Reported) Pentoxifylline (Pentoxifylline) 400 Mg Tabcr, 400 MG PO TID, (Reported) Prednisone (Prednisone) 50 Mg Tablet, 50 MG PO DAILY Pregabalin (Lyrica) 150 Mg Cap, 150 MG PO TID, (Reported) Ranitidine HCl (Ranitidine HCl) 150 Mg Tablet, 1 TAB PO BID, (Reported) Scheduled PRN Albuterol Sulfate (Ventolin Hfa) 108 Mcg/Act Aer, 2 PUFF INH Q4H PRN for SHORTNESS OF BREATH, (Reported) Cyclobenzaprine HCl (Cyclobenzaprine HCl) 5 Mg Tab, 5 MG PO Q12H PRN for MUSCLE SPASMS, (Reported) Docusate Sodium (Stool Softener) 100 Mg Cap, 100 MG PO BID PRN for CONSTIPATION, (Reported) Allergies Coded Allergies: Grapefruit (Unverified Allergy, Unknown, 08/23/18) MARIELLE WREN MD August 24, 2018 13:47
[2018-08-25] MEDS ORDERED: LevoFLOXacin IV 750 MG in APPROPRIATE DILUENT 1 EA IV SCH (12:00)
== END 2018-08-24 15:30 | disposition home or self-care (01) ==
LOC: M ED 06:26 → M ED INP 10:30 → M MSPAV 15:01
PROVIDERS: ADMIT Internal Medicine; ATTEND Internal Medicine
DX: E11.65 Type 2 diabetes mellitus with hyperglycemia (principal); Z91.14 Patient's other noncompliance with medication regimen; J44.1 Chronic obstructive pulmonary disease with (acute) exacerbation; R07.9 Chest pain, unspecified; E13.621 Other specified diabetes mellitus with foot ulcer; I10 Essential (primary) hypertension; I25.10 Atherosclerotic heart disease of native coronary artery without angina pectoris; R05 Cough; I25.2 Old myocardial infarction; Z95.2 Presence of prosthetic heart valve; R22.2 Localized swelling, mass and lump, trunk; E78.49 Other hyperlipidemia; D64.9 Anemia, unspecified; F17.210 Nicotine dependence, cigarettes, uncomplicated; Z79.84 Long term (current) use of oral hypoglycemic drugs; Z79.899 Other long term (current) drug therapy; K21.9 Gastro-esophageal reflux disease without esophagitis; Z79.82 Long term (current) use of aspirin
CPT/HCPCS: 36415; 71046; 71260; 80047; 80048; 80076; 82010; 82550; 82553; 82947; 83036; 83605; 83690; 83735; 83930; 84145; 85025; 85027; 87040; 93005; 94640; 96361; 96365; 96366; 97161; 99285; G0480; J1956; Q9967

== ENCOUNTER → 2018-09-05 | Outpatient (CLI) | payer OTHER ==
[~2018-09-05] MED LIST changes: +ADME100I SC; +BASA100I SC; +FERR325T3 PO; +FLUT1INH3 INH; +LEVA750T7 PO; +MUPI2OI TOP; +PRED50TA PO; +RANI150T14 PO
--- NOTE | 2018-09-05 07:49 | REP ---
Clinical: Chest pain. Rule out sternal fracture of the . Comparison: 08/23/2018 . Technique: PA and lateral. Findings: The mediastinum and cardiac silhouette are normal. Sternotomy again noted. No obvious acute sternal fracture identified. The lung snowden are clear and without acute consolidation, effusion, or pneumothorax. The skeletal structures are intact and normal. Impression: 1. No acute cardiopulmonary process. 2. No obvious acute sternal fracture appreciated. Electronically Signed by James Ya MD 09/05/2018 07:41 A
--- NOTE | 2018-09-05 07:51 | REP ---
Clinical: Pain. Rule out sternal fracture. Technique: Two orthogonal views of the sternum. Findings: Evidence of prior sternotomy. No obvious acute sternal fracture identified. Impression: No obvious acute sternal fracture. Electronically Signed by James Ya MD 09/05/2018 07:42 A
== END ==
LOC: M RAD 07:11
PROVIDERS: ATTEND Internal Medicine Cardiovascular Disease
DX: J44.9 Chronic obstructive pulmonary disease, unspecified (principal)

== ENCOUNTER → 2018-10-25 | Outpatient (CLI) | payer OTHER ==
[~2018-10-25] MED LIST changes: +MM S100C PO; -STOO100C PO
--- NOTE | 2018-10-25 23:10 | REP ---
Clinical: Peripheral vascular disease with nonhealing left lower extremity ulcer. Technique: Real time sweet scale and color Doppler evaluation of the bilateral lower extremity arterial vasculature using linear high frequency transducer. Findings: Sweet scale and color images demonstrate severe bilateral calcified atherosclerotic changes. Severe focal stenosis noted at the bilateral mid superficial femoral arteries along with significantly decreased flow velocities distal to the areas of stenoses. Reversed flow is noted in the left distal posterior tibial artery and marked stenosis in the proximal left anterior tibial artery is also identified. Monophasic wave patterns noted bilaterally consistent with significant upstream atherosclerotic disease. Peak systolic velocities (cm/sec) RIGHT LEFT Common femoral artery 208 237 Profunda femoris 182 141 - 237 SFA (proximal) 168 159 SFA (mid) 88 - 432 51 - 404 SFA (distal) 86 48 Popliteal artery 40 42 THO (prox.) 18 117 - 19 Tibioperoneal trunk 49 36 DEPUTY SHERIFF GENERALIST (prox.) 45 24 DEPUTY SHERIFF GENERALIST (distal) 20 15 THO (distal) 65 10 Impression: Severe bilateral atherosclerotic disease with marked focal areas of stenosis noted in the bilateral mid superficial femoral arteries as well as left proximal anterior tibial artery. Electronically Signed by James Ya MD 10/25/2018 11:01 P
== END ==
LOC: M RAD 12:25
PROVIDERS: ATTEND Podiatrist Foot & Ankle Surgery
DX: I70.249 Atherosclerosis of native arteries of left leg with ulceration of unspecified site (principal)

== ENCOUNTER → 2018-11-22 | Outpatient (CLI) | payer OTHER ==
[2018-11-22 10:22] LABS: BASO # 0.1 10^3/uL (0.0-0.2); BASO % 0.8 % (0.0-1.0); EOS # 0.4 10^3/uL (0.0-0.50); EOS % 4.1 % (0.0-3.0); HEMATOCRIT 43.1 % (36.0-47.0); HEMOGLOBIN 14.7 g/dl (12.0-15.5); LYMPH # 2.2 10^3/uL (1.5-4.5); LYMPH % 25.2 % (24.0-44.0); MEAN CORPUSCULAR HEMOGLOBIN 29.1 pg (27.0-33.0); MEAN CORPUSCULAR HGB CONC 34.1 g/dl (32.0-36.5); MEAN CORPUSCULAR VOLUME 85.2 fl (80.0-96.0); MONO # 0.5 10^3/uL (0.0-0.8); MONO % 5.5 % (0.0-5.0); NEUTROPHILS # 5.6 10^3/uL (1.8-7.7); NEUTROPHILS % 63.9 % (36.0-66.0); PLATELET COUNT, AUTOMATED 265 10^3/uL (150-450); RED BLOOD COUNT 5.06 10^6/uL (4.00-5.40); WHITE BLOOD COUNT 8.8 10^3/uL (4.0-10.0)
[2018-11-22 10:45] LABS: BLOOD UREA NITROGEN 13 MG/DL (7-18); CALCIUM LEVEL 8.7 MG/DL (8.5-10.1); CARBON DIOXIDE LEVEL 33 MEQ/L (21-32); CHLORIDE LEVEL 101 MEQ/L (98-107); CREATININE FOR GFR 0.73 MG/DL (0.55-1.30); GLOMERULAR FILTRATION RATE > 60.0 (>51); GLUCOSE, FASTING 195 MG/DL (70-100); POTASSIUM SERUM 4.3 MEQ/L (3.5-5.1); SODIUM LEVEL 137 MEQ/L (136-145)
== END ==
LOC: M LAB 09:30
PROVIDERS: ATTEND Surgery Vascular Surgery
DX: I70.213 Atherosclerosis of native arteries of extremities with intermittent claudication, bilateral legs (principal)

== ENCOUNTER 2018-12-05 09:52 | Outpatient (CLI) | payer OTHER ==
[~2018-12-05 09:52] MED LIST changes: +BUPIVACAINE HCL 0.5% 10 ML VIAL As Ordered ONE; +HEPARIN 1,000 UNITS/ML 10ML VIAL (FOR RADIOLOGY& DIALYSIS ONLY) As Ordered ONE; +ISOVUE-300 61% 50ML VIAL (Q9967) As Ordered ONE; +LIDOCAINE 2% MDV 20 ML VIAL As Ordered ONE; -OMEP40CA2 PO; +OMEP40CA97 PO; +diphenhydrAMINE INJ 50MG/ML VIAL (J1200) As Ordered ONE
[2018-12-05] MEDS ORDERED: fentaNYL 100 MCG/2 ML INJECTION (J3010) As Ordered ONE (10:50)
[2018-12-05] MEDS ORDERED: MIDAZOLAM INJ 2 MG/2 ML VIAL (J2250) As Ordered ONE (10:50)
[2018-12-05] MEDS ORDERED: PROTAMINE SULF INJ 50 MG/5 ML VIAL (J2720) As Ordered ONE (11:57)
[2018-12-05 16:00] VITALS: BP 124/62
--- NOTE | 2018-12-24 09:08 | REPIR ---
DATE OF PROCEDURE: 12/05/2018 ATTENDING SURGEON: Dr. Ruma Herrmann ACCOUNT RESOLUTION EXPERT: Shwetha Martinez and Rosa Hilario PREOPERATIVE DIAGNOSES: Nonhealing left foot wound, diabetes mellitus, and hypertension. POSTOPERATIVE DIAGNOSES: Nonhealing left foot wound, diabetes mellitus, and hypertension. PROCEDURE: Aortogram, iliofemoral angiogram, selective left common femoral artery catheter placement with left lower extremity angiogram, left common femoral artery angioplasty with 5 x 200 balloon, left superficial femoral artery angioplasty with 5 x 200 balloon, left popliteal artery angioplasty with 5 x 200 balloon, Mynx closure of the right common femoral arteriotomy. INDICATION: The patient is a 53-year female with nonhealing left foot wounds and a history of diabetes and hypertension. The patient undergo an angiogram with possible angioplasty stent and/or atherectomy. ANESTHESIA: Was local with sedation with 1 mg Versed 50 mcg of fentanyl and 20 mL of 2% lidocaine mixed with 0.5% Marcaine. FLUORO TIME: 3.0 minutes. CONTRAST: 14 mL of Isovue-300. SEDATION TIME: Was 11:23 a.m. to 12:13 a.m. for a total of 50 minutes. HEPARIN: 6000 units. PROTAMINE: 50 mg. COMPLICATIONS: None. DRAINS: None. SPECIMENS: None. IMPLANTS: None. FINDINGS: The patient had a palpable dorsalis pedis pulse at the completion of the intervention, this was nonpalpable prior to the intervention. PROCEDURE: The patient was taken to the angiography suite, placed supine on the angiography room table and then prepped and draped in a standard surgical fashion. The right common femoral artery was cannulated with a micropuncture needle after anesthetizing the overlying skin and subcutaneous tissue. Catheter was placed in the aorta and aortogram was performed. Catheter was pulled down to level bifurcation of the iliac arteries and an iliofemoral angiogram was performed. Catheter was directed over the bifurcation, placed in the left common femoral artery and angiogram was performed. This showed severe disease in the common femoral, superficial femoral, and popliteal artery which underwent angioplasty with a 5 x 200 balloon. A completion angiogram showed resolution of the stenosis with excellent flow distally and into the anterior tibial artery. The catheters and wires were removed. A Mynx closure was used close the arteriotomy in the right common femoral artery with an additional 10 minutes of adjunctive pressure applied for hemostasis. Dressings were then applied. The patient tolerated the procedure well. All instrument, sponge and needle counts were correct at the end the case. There were no complications. Dr. Herrmann was present for and directed the entire case. The patient was transferred to holding area and subsequently discharged in stable condition.
== END 2018-12-05 16:22 | disposition home or self-care (01) ==
LOC: M IRPRO 09:52
PROVIDERS: ATTEND Surgery Vascular Surgery
DX: I70.245 Atherosclerosis of native arteries of left leg with ulceration of other part of foot (principal); L97.529 Non-pressure chronic ulcer of other part of left foot with unspecified severity; I10 Essential (primary) hypertension; E11.621 Type 2 diabetes mellitus with foot ulcer; F41.9 Anxiety disorder, unspecified; F32.9 Major depressive disorder, single episode, unspecified
CPT/HCPCS: 37224; 75710; 99152; 99153; C1725; C1760; C1769; C1887; C1894; J1200; J2250; J2720; J3010; Q9967

== ENCOUNTER → 2018-12-15 | Outpatient (CLI) | payer OTHER ==
[~2018-12-15] MED LIST changes: +BREO1INH INH; +BREO1INH3 INH; -BUPIVACAINE HCL 0.5% 10 ML VIAL As Ordered ONE; +DOXY100C37 PO; +FERR1TAB8 PO; -HEPARIN 1,000 UNITS/ML 10ML VIAL (FOR RADIOLOGY& DIALYSIS ONLY) As Ordered ONE; -ISOVUE-300 61% 50ML VIAL (Q9967) As Ordered ONE; -LIDOCAINE 2% MDV 20 ML VIAL As Ordered ONE; +METF-791 PO; +NYST1POW9 TOP; +PROV108A INH; +STEG15TA PO; +TRES100I SC; +TRES1INJ SC; -diphenhydrAMINE INJ 50MG/ML VIAL (J1200) As Ordered ONE
--- NOTE | 2018-12-15 21:35 | REP ---
Clinical: Palpable mass/lump related to the left anterior chest. Technique: PA and lateral. Comparison: 09/05/2018. Findings: There appears to be a linear faint metallic foreign body suggested in the medial lower anterior left chest wall measuring approximately 2.4 cm in length and may represent a portion of fractured wire or needle for which clinical correlation is recommended. Mediastinum and cardiac silhouette are stable and demonstrate prior sternotomy and CABG. Lung snowden demonstrate chronic-appearing interstitial changes without obvious focal consolidation, effusion, or pneumothorax. Impression: Thin linear metallic foreign body suspected in the anteromedial lower left chest wall appears nonacute and is of uncertain clinical significance or etiology. Electronically Signed by James Ya MD 12/15/2018 09:27 P
== END ==
LOC: M SMT 09:16
PROVIDERS: ATTEND Thoracic Surgery (Cardiothoracic Vascular Surgery)
DX: S20.359A Superficial foreign body of unspecified front wall of thorax, initial encounter (principal)

== ENCOUNTER → 2019-01-09 | Outpatient (CLI) | payer OTHER ==
[~2019-01-09] MED LIST changes: -BREO1INH INH; -BREO1INH3 INH; -DOXY100C37 PO; -FERR1TAB8 PO; -METF-791 PO; -NYST1POW9 TOP; +OMEP40CA2 PO; -OMEP40CA97 PO; -PROV108A INH; -STEG15TA PO; -TRES100I SC; -TRES1INJ SC
--- NOTE | 2019-01-10 07:03 | REP ---
Clinical: Superficial foreign body. Technique: Axial noncontrast images from the thoracic inlet to the upper abdomen with coronal and sagittal. Tobi: 08/23/2018. Findings: Bilateral lung snowden demonstrate mild chronic bilateral fibroatelectatic changes without acute consolidation, significant nodule/mass, or pleural effusion. No pneumothorax. Tracheobronchial tree is patent. Mediastinum demonstrates atherosclerotic changes to the aorta and coronary arteries along with evidence of prior sternotomy. No significant adenopathy. No significant extrathoracic mass or foreign body identified. The BB marker is suggested overlying the midline sternum and the patient may be feeling the underlying sternotomy wires rather than actual mass. Limited upper abdomen demonstrates stable left adrenal adenoma. Impression: 1. Chronic stable changes. No acute mediastinal or pleuroparenchymal process. 2. BB marker overlies sternotomy wires which may reflect the patient's presumed mass/foreign body. Electronically Signed by James Ya MD 01/10/2019 06:55 A
== END ==
LOC: M RAD 10:12
PROVIDERS: ATTEND Thoracic Surgery (Cardiothoracic Vascular Surgery)
DX: S20.359A Superficial foreign body of unspecified front wall of thorax, initial encounter (principal); X58.XXXA Exposure to other specified factors, initial encounter; Y92.89 Other specified places as the place of occurrence of the external cause

== ENCOUNTER 2019-02-02 21:53 | Emergency (ER) | payer OTHER ==
[~2019-02-02] VITALS: Ht 162.6 cm; Wt 81.8 kg
[~2019-02-02 21:53] MED LIST changes: -OMEP40CA2 PO; +OMEP40CA97 PO
[2019-02-02 23:03] VITALS: BP_DIAS 81
[2019-02-02] MEDS ORDERED: IPRATROPIUM 0.5MG/ALBUTEROL 2.5MG INH SOL UD 3ML (DUONEB)(J7620) NEB ONE (23:15)
[2019-02-02] MEDS ORDERED: DOXY100C37 PO (23:18)
[2019-02-02] MEDS ORDERED: PROV108A INH (23:43)
[2019-02-03] MEDS ORDERED: DOXYCYCLINE HYCLATE 100 MG TAB PO ONE
[2019-02-03 00:40] VITALS: BP_SYST 169
--- NOTE | 2019-02-03 02:54 | REP ---
Clinical: Cough and shortness of breath . Comparison: 12/15/2018 . Technique: PA and lateral. Findings: The mediastinum and cardiac silhouette are normal. Evidence for prior sternotomy. The lung snowden are clear and without acute consolidation, effusion, or pneumothorax. The skeletal structures are intact and normal. Impression: 1. No acute cardiopulmonary process. Electronically Signed by James Ya MD 02/03/2019 02:45 A
--- NOTE | 2019-02-03 19:50 | ECGEPIP ---
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
== END 2019-02-03 00:41 | disposition home or self-care (01) ==
LOC: M ED 21:53
DX: J06.9 Acute upper respiratory infection, unspecified (principal); J40 Bronchitis, not specified as acute or chronic; I11.9 Hypertensive heart disease without heart failure; E11.9 Type 2 diabetes mellitus without complications; F17.210 Nicotine dependence, cigarettes, uncomplicated; Z91.018 Allergy to other foods; Z79.4 Long term (current) use of insulin; Z79.899 Other long term (current) drug therapy

== ENCOUNTER → 2019-02-06 | Outpatient (CLI) | payer OTHER ==
[~2019-02-06] MED LIST changes: +DOXY100C37 PO; +PROV108A INH
--- NOTE | 2019-02-06 19:03 | REP ---
Clinical: Left lower extremity history of peripheral vascular disease. Technique: Real time hale scale and color Doppler evaluation of the left lower extremity arterial vasculature using linear high frequency transducer. Findings: The ankle to brachial index cannot be obtained. Color Doppler interrogation demonstrates moderate to significant atheromatous plaquing with multiple areas of narrowing slash stenosis. Reversal of flow noted in the distal posterior tibial artery. PSV(cm/sec) LEFT Common femoral artery 138 cm/s triphasic Profunda femoris artery 158 cm/s triphasic Proximal superficial femoral artery 226 cm/s triphasic Mid superficial femoral artery 243 cm/s biphasic Distal superficial femoral artery 88 cm/s monophasic Popliteal artery 164 cm/s monophasic Proximal THO 365 cm/s monophasic Tibioperoneal trunk 37 cm/s monophasic Proximal ENVIRONMENTAL HEALTH TECHNOLOGIST 26 cm/s monophasic Distal ENVIRONMENTAL HEALTH TECHNOLOGIST 14 cm/s reversed flow Distal THO 32 cm/s monophasic Impression: Findings are consistent with moderate to significant atheromatous changes with scattered areas of stenosis. Electronically Signed by James Ya MD 02/06/2019 06:54 P
== END ==
LOC: M RAD 11:58
PROVIDERS: ATTEND Physician Assistant
DX: I70.212 Atherosclerosis of native arteries of extremities with intermittent claudication, left leg (principal); F17.210 Nicotine dependence, cigarettes, uncomplicated

== ENCOUNTER → 2019-02-27 | Outpatient (CLI) | payer OTHER ==
[~2019-02-27] VITALS: Ht 162.6 cm; Wt 73.5 kg
[~2019-02-27] MED LIST changes: +BREO1INH INH; +HEPARIN 1,000 UNITS/ML 10ML VIAL (FOR RADIOLOGY& DIALYSIS ONLY) As Ordered ONE; +HumuLIN R (REGULAR) INSULIN (NovoLIN R) **100U/ML** PER UNIT SC ONE; +ISOVUE-300 61% 50ML VIAL (Q9967) As Ordered ONE; +LIDOCAINE 1% MDV 20ML VIAL As Ordered ONE; +MIDAZOLAM INJ 2 MG/2 ML VIAL (J2250) As Ordered ONE; +NITROGLYCERIN IN D5W 25MG/250ML (100MCG/ML) As Ordered ONE; +STEG15TA PO; +TRES100I SC; +diphenhydrAMINE INJ 50MG/ML VIAL (J1200) As Ordered ONE; +fentaNYL 100 MCG/2 ML INJECTION (J3010) As Ordered ONE
[2019-02-27 07:17] LABS: HEMATOCRIT 42.4 % (36.0-47.0); MEAN CORPUSCULAR HEMOGLOBIN 29.2 pg (27.0-33.0); MEAN CORPUSCULAR VOLUME 88.3 fl (80.0-96.0); PLATELET COUNT, AUTOMATED 241 10^3/uL (150-450)
[2019-02-27 07:43] LABS: BLOOD UREA NITROGEN 23 MG/DL (7-18); CALCIUM LEVEL 9.2 MG/DL (8.5-10.1); CARBON DIOXIDE LEVEL 30 MEQ/L (21-32); CHLORIDE LEVEL 102 MEQ/L (98-107); CREATININE FOR GFR 0.99 MG/DL (0.55-1.30); GLOMERULAR FILTRATION RATE > 60.0 (>51); GLUCOSE, FASTING 440 MG/DL (70-100); POTASSIUM SERUM 4.9 MEQ/L (3.5-5.1); SODIUM LEVEL 135 MEQ/L (136-145)
--- NOTE | 2019-02-27 09:59 | ROOPDOC ---
[facility] Report Of Operation Report of Operation DATE OF PROCEDURE: 02/27/19 PREPROCEDURE DIAGNOSES: Recurrent atherosclerosis of the [place] vessels with claudication and non-healing ulcer left heel. POSTPROCEDURE DIAGNOSES: Same. PROCEDURE: 1. Ultrasound-guided access right common femoral artery 2. Left lower extremity arteriogram with runoff with selection of left common femoral artery, left superficial femoral artery 3. Angioplasty left superficial femoral artery with 5 x 200 Shellman balloon 4. Angioplasty left popliteal artery and tibioperoneal trunk with 4 x 200 and 5 x 200 Shellman balloons 5. Cross chronic total occlusion left posterior tibial artery into plantar vessel and angioplasty with 2 x 100 Hussein and 3 x 220 Hussein balloons 6. Cross chronic total occlusion left peroneal artery and angioplasty with 2 x 100 Hussein and 3 x 200 Hussein balloons 7. Angioplasty left anterior tibial artery with 3 x 200 Hussein balloon 8. Completion arteriograms 9. Mynx closure right common femoral artery SURGEON: Kristin Michel MD ANESTHESIA: Local anesthesia 7 mL lidocaine. Moderate intravenous conscious sedation was supervised by Dr. Michel. The patient was independently monitored by a registered nurse aside in the department of radiology using automated blood pressure, EKG, and pulse oximetry.. The detailed sedation record is permanently housed in the hospital information system. The following is the brief sedation record: Start time 07:47, stop time 09:29, Versed 1 mg IV, fentanyl 100 g IV, heparin 6000 units, nitroglycerin 200 g, regular insulin 10 units subcutaneous. CONTRAST: 100 mL Isovue INDICATION FOR PROCEDURE: Ms. Soto is a 53-year-old patient with severe recurrent peripheral vascular disease and short distance claudication who has a small ulceration of her left heel followed by our podiatry colleagues. She has a history of angioplasty of the left superficial femoral artery and popliteal artery in the past with Dr. Herrmann, and returned with recurrent symptoms of claudication and the nonhealing wound. Noninvasive imaging confirmed restenosis of the SFA, popliteal, anterior tibial disease. I reviewed Dr. Herrmann's original imaging, and the patient did have improved flow through the SFA and popliteal after angioplasty, but the tibial arteries were not addressed. 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 Risks benefits and alternatives to a left lower extremity arteriogram with possible angioplasty possible stenting was discussed with the patient at length. She was agreeable to proceed. Informed consent was obtained. INTERPRETATION: 1. The left common femoral artery is widely patent anterior widely patent profunda, with a 60% stenosis at the origin the SFA, and heavy plaque with intermittent stenoses throughout the SFA. There is bulky heavy plaque with 60% stenosis at Alpesh's canal, running through a mostly patent popliteal with a 70% focal stenosis in the midportion. The anterior tibial artery has a high medial takeoff and then crosses over the midline to run its normal course through the anterior compartment. It has several areas of proximal stenosis, 40-50%, and the distal runoff is patent and supplies the foot. The peroneal artery occludes near its origin and does not reconstitute. The posterior tibial artery occludes near its origin and this has reconstitution at the ankle from a collateral branch from the anterior tibial artery. No distal runoff through the plantar vessels from the posterior tibial arteries noted. 2. After angioplasty of the SFA, there is less than 10% residual stenosis and no flow-limiting dissections, embolization, extravasation is noted. 3. After angioplasty the popliteal artery initially with a 4 x 200 Shellman balloon, there was still 50% residual stenosis, so second angioplasty was performed at the mid and more proximal popliteal artery across Alpesh's canal with the 5 x 200 Shellman balloon and following this, there was less than 20% residual stenosis. No flow-limiting dissection, embolization or extravasation is noted. 4. After crossing the occlusion at the posterior tibial artery, angioplasty with a 3 x 220 Hussein balloon provided in-line flow to the ankle, but there was no distal patent runoff into the foot. We then were able to cross through to the midfoot into the medial plantar artery, and angioplasty across the ankle into the midfoot with a 2 x 100 Hussein balloon. Following this, we still has limited runoff into the foot due to chronic pedal vessel occlusion. U nfortunately, we could not rectify this with angioplasty. There is still much better flow after angioplasty due to some collaterals at the mid calf and ankle that accept the new blood flow. 5. After crossing the chronic total occlusion of the peroneal artery, angioplasty with a 2 x 100 distally and 3 x 220 proximally Hussein balloons provided in-line flow through the vessel but also a little bit of arterial spasm was noted. This mostly resolved with administration of nitroglycerin to the tibial vessels and should continue to improve with a bit of time. 6. Angioplasty of the anterior tibial artery provided rapid flow to the foot. Th ere was also some spasm distally in the anterior tibial artery that improved after administration of nitroglycerin to the tibial vessels. This should also continue to improve with time. No embolization or extravasation was noted with tibial angioplasty on any of 3 vessels. REPORT OF OPERATION: Patient was brought to the angiographic suite in stable condition. Her bilateral groins were prepped and draped in a sterile fashion. A timeout was performed. Sedation was administered without complication. Local ane sthesia was administered to skin and subcutaneous tissue of the right groin and a microneedle was used to access the common femoral artery under ultrasound guidance. A wire was passed through this access under fluoroscopic guidance and the needle was removed. A micro-sheath was placed and a Glidewire was advanced through this access into the distal aorta under fluoroscopic guidance. The sheath was then exchanged for 6 [place] sheath which was flushed with saline. We went up and over the bifurcation with the Glidewire Omni flush catheter. We selected the common femoral artery with the Omni flush catheter and a left common femoral profunda and SFA and 2 g was performed. We then selected the SFA with Omni flush catheter and the distal runoff was performed. Please see above for interpretation. We advanced the Glidewire to the distal popliteal artery and first angioplasty from the origin of the SFA to Alpesh's canal with a 5 x 200 Shellman balloon for three-minute inflations at low atmospheres. Following this, there was rapid flow through the SFA in the areas of stenosis were improved. We then selected a 4 x 200 Shellman balloon and angioplasty across the origin of the tibioperoneal trunk to the proximal popliteal artery and following this there was patent inflow everywhere but at the focal stenosis in the mid popliteal artery. I felt the larger balloon may provide a betters end result, and we placed the 5 x 200 Shellman balloon just across the area of stenosis in the mid popliteal with the proximal aspect of the balloon in Alpesh's canal. Three- minute angioplasty was performed and following this there was no flow-limiting stenosis and the flow was greatly improved. No dissection, flow-limiting stenosis, embolization, or extravasation was noted. Next, we selected the pos terior tibial artery and we were able to cross this with the Glidewire. We advanced a Gleich cath to the mid calf over the wire and then exchanged for a V 18 wire which was advanced through the posterior tibial to the ankle. Over this, we angioplasty with a 3 x 220 Hussein balloon for three-minute inflations over the length of the artery. We noted on completion arteriogram that there was sluggish flow due to lack of outflow at the foot. We then readvanced the wire and were able to cross the ankle into the foot into the medial plantar artery. We then passed a 2 x 100 Hussein balloon across into the plantar artery. Three- minute angioplasty was performed. After this, we still had somewhat sluggish flow through the posterior tibial artery due to lack of outflow distal to this in the foot. Unfortunately we could not rectify this due to the diminutive nature of the pedal vessels. There was still outflow through several collaterals and the vessel was patent. We then selected with the V 18 wire the peroneal artery were able to cross to the ankle. We angioplasty distally with a 2 x 100 Hussein balloon and more proximally and across the tibioperoneal trunk with the 3 x 220 Hussein balloon. Both were three-minute inflations and following this there was widely patent inflow through the peroneal artery. We then utilized a Gleich Glidewire to select the anterior tibial artery and exchanged the wire back for the V 18 wire and then we were able to angioplasty across the anterior tibial artery with the 3 x 220 Hussein balloon. Following this, there is 3 vessel runoff to the foot with some spasm noted in the tibial vessels. We administered nitroglycerin at the popliteal artery, 200 g, and let that circulate for several minutes. We then flushed and repeat arteriogram showed an improvement in the spasm, which should continue to improve with time. We then exchanged the sheath over the Glidewire for short 6 [place] Lucian sheath and a minx closure device was deployed and left common femoral artery with good hemostasis. Pressure was held for 10 minutes and sterile dressings were applied. The patient was taken to recovery in stable condition. ESTIMATED BLOOD LOSS: Approximately 5 mL. COMPLICATIONS: None. PLAN: Our plan is to see the patient back in clinic and see how she is doing after intervention. Continue local wound care per Dr. Edge. She can resume home medications. KRISTIN MICHEL MD Feb 27, 2019 09:59
[2019-02-27 13:47] VITALS: BP 124/64
== END ==
LOC: M IRPRO 06:37
PROVIDERS: ATTEND Surgery Vascular Surgery
DX: I70.212 Atherosclerosis of native arteries of extremities with intermittent claudication, left leg (principal); I70.245 Atherosclerosis of native arteries of left leg with ulceration of other part of foot; L97.428 Non-pressure chronic ulcer of left heel and midfoot with other specified severity; I70.92 Chronic total occlusion of artery of the extremities
CPT/HCPCS: 37224; 37228; 37232; 75710; 80048; 85027; 99152; 99153; C1725; C1760; C1769; C1887; C1894; J2250; J3010; Q9967

== ENCOUNTER 2019-03-21 09:06 | Inpatient (IN) | payer OTHER ==
[~2019-03-21] VITALS: Ht 162.6 cm; Wt 76.8 kg
[~2019-03-21 09:06] MED LIST changes: -HEPARIN 1,000 UNITS/ML 10ML VIAL (FOR RADIOLOGY& DIALYSIS ONLY) As Ordered ONE; -HumuLIN R (REGULAR) INSULIN (NovoLIN R) **100U/ML** PER UNIT SC ONE; -ISOVUE-300 61% 50ML VIAL (Q9967) As Ordered ONE; -LIDOCAINE 1% MDV 20ML VIAL As Ordered ONE; -MIDAZOLAM INJ 2 MG/2 ML VIAL (J2250) As Ordered ONE; -NITROGLYCERIN IN D5W 25MG/250ML (100MCG/ML) As Ordered ONE; -diphenhydrAMINE INJ 50MG/ML VIAL (J1200) As Ordered ONE; -fentaNYL 100 MCG/2 ML INJECTION (J3010) As Ordered ONE
[2019-03-21 10:03] LABS: VENOUS BASE EXCESS -1.2 (-2.0-2.0); VENOUS HCO3 25.2 MEQ/L (23.0-27.0); VENOUS O2 SATURATION 95.2 % (60.0-80.0); VENOUS PARTIAL PRESSURE CO2 47.9 mmHg (38.0-50.0); VENOUS PARTIAL PRESSURE O2 81.5 mmHg (30.0-50.0); VENOUS PH 7.339 UNITS (7.330-7.430); VENOUS STANDARD HCO3 23.4 MEQ/L; VENOUS TOTAL CO2 26.7 MEQ/L (24.0-28.0)
[2019-03-21 10:07] LABS: BASO # 0.1 10^3/uL (0.0-0.2); EOS # 0.2 10^3/uL (0.0-0.5); EOS % 2.5 % (0.0-3.0); HEMATOCRIT 45.1 % (36.0-47.0); HEMOGLOBIN 15.7 g/dl (12.0-15.5); LYMPH # 1.6 10^3/uL (1.5-5.0); LYMPH % 18.7 % (24.0-44.0); MEAN CORPUSCULAR HEMOGLOBIN 29.2 pg (27.0-33.0); MEAN CORPUSCULAR HGB CONC 34.8 g/dl (32.0-36.5); MONO # 0.4 10^3/uL (0.0-0.8); MONO % 4.3 % (0.0-5.0); NEUTROPHILS # 6.2 10^3/uL (1.5-8.5); NEUTROPHILS % 73.3 % (36.0-66.0); PLATELET COUNT, AUTOMATED 307 10^3/uL (150-450); RED BLOOD COUNT 5.37 10^6/uL (4.00-5.40); WHITE BLOOD COUNT 8.4 10^3/uL (4.0-10.0)
[2019-03-21] MEDS ORDERED: ONDANSETRON 4MG/2ML VIAL (J2405) IV ONE (10:30)
[2019-03-21] MEDS ORDERED: NS 1,000 ML IV ONE ×3 (10:30→11:15)
[2019-03-21 10:37] LABS: VENOUS BASE EXCESS -1.4 (-2.0-2.0); VENOUS HCO3 23.7 MEQ/L (23.0-27.0); VENOUS O2 SATURATION 96.1 % (60.0-80.0); VENOUS PARTIAL PRESSURE CO2 41.3 mmHg (38.0-50.0); VENOUS PARTIAL PRESSURE O2 78.8 mmHg (30.0-50.0); VENOUS PH 7.377 UNITS (7.330-7.430); VENOUS STANDARD HCO3 23.3 MEQ/L
[2019-03-21 10:58] LABS: ACETONE/KETONE 2.47 MG/DL (<2.81); ALBUMIN 3.3 GM/DL (3.2-5.2); ALT/SGPT 18 U/L (12-78); BILIRUBIN,DIRECT < 0.1 MG/DL (0.0-0.2); BILIRUBIN,TOTAL 0.4 MG/DL (0.2-1.0); BLOOD UREA NITROGEN 28 MG/DL (7-18); CALCIUM LEVEL 9.4 MG/DL (8.5-10.1); CARBON DIOXIDE LEVEL 26 MEQ/L (21-32); CHLORIDE LEVEL 87 MEQ/L (98-107); CREATININE FOR GFR 1.19 MG/DL (0.55-1.30); GLOMERULAR FILTRATION RATE 50.9 (>51); GLUCOSE, FASTING 909 MG/DL (70-100); LIPASE 294 U/L (73-393); MAGNESIUM LEVEL 2.2 MG/DL (1.8-2.4); PHOSPHORUS LEVEL 5.2 MG/DL (2.5-4.9); POTASSIUM SERUM 6.1 MEQ/L (3.5-5.1); SODIUM LEVEL 123 MEQ/L (136-145); TOTAL PROTEIN 7.7 GM/DL (6.4-8.2)
[2019-03-21] MEDS ORDERED: CALCIUM GLUCONATE 1,000 MG in D5W MINI-BAG PLUS 100 ML IV ONE (11:00)
[2019-03-21] MEDS ORDERED: INSULIN HUMAN REGULAR 100 UNITS in NS 99 ML IV SCH ×2 (11:04→12:00)
[2019-03-21 11:10] LABS: OSMOLALITY SERUM 322 MOSM/KG (275-295)
[2019-03-21] MEDS ORDERED: HumuLIN R (REGULAR) INSULIN (NovoLIN R) **100U/ML** PER UNIT IV ONE (11:15)
[2019-03-21] MEDS ORDERED: INSULIN IV RATE CHANGE DOCUMENTATION ML/HR XX SCH (11:15)
[2019-03-21] MEDS ORDERED: METF-791 PO (11:38)
[2019-03-21] MEDS ORDERED: TRES1INJ SC (11:38)
[2019-03-21] MEDS ORDERED: NYST1POW9 TOP (11:38)
[2019-03-21] MEDS ORDERED: FERR1TAB8 PO (11:38)
[2019-03-21] MEDS ORDERED: BREO1INH3 INH (11:38)
[2019-03-21] MEDS ORDERED: CYCLOBENZAPRINE 5MG TABLET PO PRN (12:45)
[2019-03-21] MEDS: NS 1,000 ML IV SCH ×2 (12:45→15:50)
[2019-03-21] MEDS ORDERED: NYSTATIN 100,000 UNITS/GM TOPICAL PWD 15 GM TOP PRN (12:45)
--- NOTE | 2019-03-21 12:51 | HPEPDOC ---
[facility] Medical History & Physical Date of Admission Mar 21, 2019 Date of Service: Mar 21, 2019 Attending Physician: SOHAIL WALLS MD History and Physical CHIEF COMPLAINT: Abdominal pain, nausea and vomiting HISTORY OF PRESENT ILLNESS: 53-year-old female with past medical history of diabetes mellitus, coronary artery disease, CABG, [place], history of chronic respiratory failure status post tracheostomy, COPD and hypertension, presents from home with abdominal pain, nausea and vomiting. She reports her symptoms began a couple of days ago, worsening with associated severe hyperglycemia. She reports having fingersticks of greater than 600 (600 is the maximum her monitor will go) for the past 3-5 days. She reports taking her long-acting insulin 50 units twice a day along with her pre-meal coverage of 10 units before every meal. She even reports taking extra pre-meal coverage to help bring the fi ngersticks down, reportedly took 30 units before one of her meals, which brought her fingersticks into the 500 range. She has no other complaints at this time, denies any shortness of breath, chest pain, coughing or diarrhea. In the ED she was found to have blood glucose of greater than 900, received 8 units of IV insulin 1 followed by insulin drip at 8 units per hour. Her repeat fingerstick is at 444, received 1 L of normal saline so far. 10 point review of system is negative except for above PAST MEDICAL HISTORY: 1. Diabetes mellitus. 2. Coronary artery disease. 3. [place]. 4. Hypertension. 5. History of chronic respiratory failure status post tracheostomy 6. COPD PAST SURGICAL HISTORY: 1. CABG. 2. Tracheostomy (reversed). SOCIAL HISTORY: Current smoker, 1-1.5 packs per day, has been smoking for greater than 30 years. Denies alcohol use. Denies drug use FAMILY HISTORY: Positive for heart disease ALLERGIES: Please see below. HOME MEDICATIONS: Please see below. PHYSICAL EXAMINATION: VITAL SIGNS: Please see below. GENERAL: No distress HEENT: Normocephalic, atraumatic, moist mucous membranes NECK: Supple CARDIOVASCULAR EXAMINATION: S1, S2, tachycardic RESPIRATORY EXAMINATION: Clear to auscultation, no wheezing ABDOMINAL EXAMINATION: Soft, mild tenderness, nondistended, positive bowel sounds EXTREMITIES: Range of motion intact SKIN: No rash NEUROLOGICAL EXAMINATION: Alert and oriented 3, no focal deficits PSYCHIATRIC EXAMINATION: Calm and cooperative LABORATORY DATA: See below. MICROBIOLOGY: Please see below. ASSESSMENT: 53-year-old female with past medical history of diabetes mellitus, insulin-dependent, CABG, coronary artery disease, [place], hypertension, was is being admitted for hyperglycemic hyperosmolar syndrome. PLAN: 1. Hyperglycemic hyperosmolar syndrome. Blood glucose greater than 900 upon arrival, no significant acidosis or ketosis noted. Status post 8 units of IV insulin followed by insulin drip at 8 units per hour, repeat fingersticks at 444. Status post 2 L normal saline bolus in the ED, continue normal saline at 250 mL per hour Hourly fingersticks, repeat BMP at 2 PM. 2. Coronary artery disease. History of [place] and CABG, stable, continue optimal medical management 3. Hypertension. Continue home lisinopril 4. COPD Stable, continue home Breo-Ellipta with as needed DuoNeb. DVT prophylaxis: Heparin subcutaneous GI prophylaxis: Home PPI Vital Signs Vital Signs Date Time Temp Pulse Resp B/P (MAP) Pulse Ox O2 Delivery O2 Flow Rate FiO2 03/21/19 09:41 03/21/19 09:41 Room Air 03/21/19 09:06 98.1 110 18 96 Laboratory Data Labs 24H Laboratory Tests 2 03/21/19 09:48: Immature Granulocyte % (Auto) 0.2, Neutrophils (%) (Auto) 73.3H, Lymphocytes (%) (Auto) 18.7L, Monocytes (%) (Auto) 4.3, Eosinophils (%) (Auto) 2.5, Basophils (%) (Auto) 1.0, Neutrophils # (Auto) 6.2, Lymphocytes # (Auto) 1.6, Monocytes # (Auto) 0.4, Eosinophils # (Auto) 0.2, Basophils # (Auto) 0.1, Nucleated Red Blood Cells % (auto) 0.0, Blood Gas Bicarbonate Standard 23.4, Venous Blood pH 7.339, Venous Blood Partial Pressure CO2 47.9, Venous Blood Partial Pressure O2 81.5H, Venous Blood Total Carbon Dioxide 26.7, Venous Blood HCO3 25.2, Venous Blood Oxygen Saturation 95.2H, Venous Blood Base Excess -1.2, Anion Gap 10, Glomerular Filtration Rate 50.9L, Osmolality 322H, Calcium Level 9.4, Phosphorus Level 5.2H, Magnesium Level 2.2, Total Bilirubin 0.4, Direct Bilirubin < 0.1, Aspartate Amino Transf (AST/SGOT) 22, Alanine Aminotransferase (ALT/SGPT) 18, Alkaline Phosphatase 218H, Total Protein 7.7, Albumin 3.3, Albumin/Globulin Ratio 0.75L, Lipase 294, B-Hydroxybutyrate 2.47 03/21/19 10:07: Blood Gas Bicarbonate Standard 23.3, Venous Blood pH 7.377, Venous Blood Partial Pressure CO2 41.3, Venous Blood Partial Pressure O2 78.8H, Venous Blood Total Carbon Dioxide 25.0, Venous Blood HCO3 23.7, Venous Blood Oxygen Saturation 96.1H, Venous Blood Base Excess -1.4, Urine Color STRAW, Urine Appearance CLEAR, Urine pH 6.0, Urine Specific [place] 1.025, Urine Protein NEGATIVE, Urine Glucose (UA) 3+H, Urine Ketones NEGATIVE, Urine Blood NEGATIVE, Urine Nitrite NEGATIVE, Urine Bilirubin NEGATIVE, Urine Urobilinogen 0.2, Urine Leukocyte Esterase TRACEH, Urine WBC (Auto) 2, Urine RBC (Auto) 2, Urine Hyaline Casts (Auto) 0, Urine Bacteria (Auto) NEGATIVE, Urine Squamous Epithelial Cells 0, Urine Sperm (Auto) 03/21/19 12:06: Bedside Glucose (Misc Panel) 444H CBC/BMP Laboratory Tests 03/21/19 09:48 Microbiology Microbiology 03/21/19 Urine Culture, Received Pending Home Medications Scheduled Aspirin (Aspirin) 325 Mg Tab, 325 MG PO DAILY Atorvastatin Calcium (Atorvastatin Calcium) 40 Mg Tab, 40 MG PO DAILY Docusate Sodium (Stool Softener) 100 Mg Cap, 100 MG PO BID Duloxetine Hcl (Cymbalta) 60 Mg Cap, 60 MG PO BID Ertugliflozin Pidolate (Steglatro) 15 Mg Tablet, 15 MG PO DAILY Ferrous Sulfate (Ferrous Sulfate) 325 Mg Tablet, 325 MG PO BID Fluticasone/Vilanterol (Breo Ellipta 200-25 Mcg INH) 1 Each Blst.w.dev, 1 PUFF INH DAILY Folic Acid (Folic Acid) 1 Mg Tab, 1 MG PO DAILY Insulin Degludec (Tresiba Flextouch U-200) 200 Unit/1 Ml Insuln.pen, 50 UNIT SC BID Insulin Lispro (Admelog) 100 Unit/1 Ml Vial, 0 SC ACHS PER SLIDING SCALE Lisinopril (Lisinopril) 5 Mg Tab, 5 MG PO DAILY Loratadine (Loratadine) 10 Mg Tab, 10 MG PO DAILY Metformin HCl (Metformin HCl ER) 500 Mg Tab.er.24h, 1,000 MG PO BID Omeprazole (Omeprazole) 40 Mg Cap, 40 MG PO DAILY Pentoxifylline (Pentoxifylline) 400 Mg Tabcr, 400 MG PO TID Scheduled PRN Albuterol Sulfate (Ventolin Hfa) 108 Mcg/Act Aer, 2 PUFF INH Q4H PRN for SHORTNESS OF BREATH Cyclobenzaprine HCl (Cyclobenzaprine HCl) 5 Mg Tab, 5 MG PO Q12H PRN for MUSCLE SPASMS Nystatin (Nystatin Powder) 15 Gm Powder, 1 DOSE TOP BID PRN for RASH/ITCHING APPLY UNDER BREASTS AND FOLDS Allergies Coded Allergies: Grapefruit (Unverified Allergy, Unknown, 08/23/18) A-FIB/CHADSVASC A-FIB History Current/History of A-Fib/PAF?: No SOHAIL WALLS MD Mar 21, 2019 12:51
[2019-03-21 13:35] LABS: HEMOGLOBIN A1c 12.8 %
[2019-03-21 13:42] VITALS: BP 132/62
[2019-03-21] MEDS ORDERED: FLUBLOK(EGG FREE)(QUAD)INFLUENZA VACC 0.5ML SYRINGE (90682)18YRS&OLDER IM SCH (14:00)
[2019-03-21] MEDS: HEPARIN SOD (PORCINE) 5000 UNITS/ML VIAL SC SCH ×2 (14:28→21:41)
[2019-03-21 14:54] LABS: ALBUMIN 2.8 GM/DL (3.2-5.2); ALT/SGPT 15 U/L (12-78); BILIRUBIN,TOTAL 0.2 MG/DL (0.2-1.0); BLOOD UREA NITROGEN 23 MG/DL (7-18); CALCIUM LEVEL 9.2 MG/DL (8.5-10.1); CARBON DIOXIDE LEVEL 28 MEQ/L (21-32); CHLORIDE LEVEL 102 MEQ/L (98-107); CREATININE FOR GFR 0.93 MG/DL (0.55-1.30); GLOMERULAR FILTRATION RATE > 60.0 (>51); GLUCOSE, FASTING 268 MG/DL (70-100); POTASSIUM SERUM 4.5 MEQ/L (3.5-5.1); SODIUM LEVEL 138 MEQ/L (136-145); TOTAL PROTEIN 6.3 GM/DL (6.4-8.2)
[2019-03-21 15:00] VITALS: BP 135/69
[2019-03-21] MEDS ORDERED: GLUCAGON FOR INJ 1 MG VIAL (J1610) SC PRN (15:30)
[2019-03-21] MEDS ORDERED: GLUCOSE 4 GM CHEW TABLET PO PRN (15:30)
[2019-03-21] MEDS ORDERED: DEXTROSE 50% 50 ML SYRINGE IV PRN (15:30)
[2019-03-21] MEDS: PENTOXIFYLLINE 400 MG TAB PO SCH ×2 (15:49→21:41)
[2019-03-21 16:00] VITALS: BP 118/56
[2019-03-21] MEDS ORDERED: HumaLOG INSULIN (NovoLOG) PER UNIT SC ONE (17:00)
--- NOTE | 2019-03-21 17:13 | ECGEPIP ---
[facility] - ED Test Date: 2019-03-21 Pat Name: TATIANNA LAMB Department: Room: [place] [address] Gender: Female [employer] Assistant: saray : [id number] Requested By: PALMIRA Garcia Order Number: [id number] Reading MD: Rena Lopez Measurements Intervals [place] Rate: 86 P: 53 MD: 182 QRS: 24 QRSD: 97 T: 96 QT: 368 QTc: 442 Interpretive Statements SINUS RHYTHM POSSIBLE LEFT ATRIAL ENLARGEMENT POSSIBLE ANTERIOR MYOCARDIAL INFARCTION, OF INDETERMINATE AGE NSTTW abnormalities SIMILAR 02/02/19 Electronically Signed on 03-21-2019 17:13:44 EST by Rena Lopez
[2019-03-21] MEDS: HumaLOG INSULIN (NovoLOG) PER UNIT SC SCH (17:47)
[2019-03-21 20:00] VITALS: BP 150/73
[2019-03-21] MEDS ORDERED: LEVEMIR (INSULIN DETEMIR) 1 UNITS/0.01ML SC SCH (21:00)
[2019-03-21] MEDS ORDERED: HumaLOG INSULIN (NovoLOG) PER UNIT SC SCH (21:00)
[2019-03-21] MEDS: FERROUS SULFATE 325MG TAB PO SCH (21:41)
[2019-03-21] MEDS: DOCUSATE SODIUM 100 MG CAP PO SCH (21:41)
[2019-03-21] MEDS: DULoxetine 30 MG CAP (CYMBALTA) PO SCH (21:41)
[2019-03-22 04:00] VITALS: BP 115/73
[2019-03-22 05:13] LABS: HEMATOCRIT 43.1 % (36.0-47.0); HEMOGLOBIN 14.5 g/dl (12.0-15.5); MEAN CORPUSCULAR HEMOGLOBIN 28.5 pg (27.0-33.0); MEAN CORPUSCULAR HGB CONC 33.6 g/dl (32.0-36.5); MEAN CORPUSCULAR VOLUME 84.7 fl (80.0-96.0); PLATELET COUNT, AUTOMATED 255 10^3/uL (150-450); RED BLOOD COUNT 5.09 10^6/uL (4.00-5.40); WHITE BLOOD COUNT 8.1 10^3/uL (4.0-10.0)
[2019-03-22 05:48] LABS: ALBUMIN 2.7 GM/DL (3.2-5.2); ALT/SGPT 15 U/L (12-78); BILIRUBIN,TOTAL 0.5 MG/DL (0.2-1.0); BLOOD UREA NITROGEN 17 MG/DL (7-18); CALCIUM LEVEL 9.2 MG/DL (8.5-10.1); CARBON DIOXIDE LEVEL 29 MEQ/L (21-32); CHLORIDE LEVEL 103 MEQ/L (98-107); CREATININE FOR GFR 0.77 MG/DL (0.55-1.30); GLOMERULAR FILTRATION RATE > 60.0 (>51); GLUCOSE, FASTING 162 MG/DL (70-100); POTASSIUM SERUM 3.9 MEQ/L (3.5-5.1); SODIUM LEVEL 136 MEQ/L (136-145); TOTAL PROTEIN 6.9 GM/DL (6.4-8.2)
[2019-03-22] MEDS: HEPARIN SOD (PORCINE) 5000 UNITS/ML VIAL SC SCH (06:47)
[2019-03-22 08:00] VITALS: BP 127/60
[2019-03-22] MEDS: HumaLOG INSULIN (NovoLOG) PER UNIT SC SCH (08:31)
[2019-03-22] MEDS: DULoxetine 30 MG CAP (CYMBALTA) PO SCH (08:32)
[2019-03-22] MEDS: FERROUS SULFATE 325MG TAB PO SCH (08:32)
[2019-03-22] MEDS: DOCUSATE SODIUM 100 MG CAP PO SCH (08:32)
[2019-03-22 08:33] VITALS: BP 127/60
[2019-03-22] MEDS ORDERED: LORATADINE 10 MG TAB PO SCH (09:00)
[2019-03-22] MEDS ORDERED: FOLIC ACID 1 MG TAB PO SCH (09:00)
[2019-03-22] MEDS ORDERED: ATORVASTATIN 20 MG TAB PO SCH (09:00)
[2019-03-22] MEDS ORDERED: OMEPRAZOLE 20 MG CAP PO SCH (09:00)
[2019-03-22] MEDS ORDERED: ENTER DRUG NAME HERE (PATIENT'S OWN MED) INH SCH (09:00)
[2019-03-22] MEDS ORDERED: ASPIRIN 325 MG TAB PO SCH (09:00)
[2019-03-22] MEDS ORDERED: LISINOPRIL 5 MG TAB PO SCH (09:00)
[2019-03-22] MEDS ORDERED: LEVEMIR (INSULIN DETEMIR) 1 UNITS/0.01ML SC SCH (09:00)
[2019-03-22] MEDS: PENTOXIFYLLINE 400 MG TAB PO SCH (10:17)
--- NOTE | 2019-03-22 19:40 | DS.PDOC ---
Discharge Summary General Date of Admission Mar 21, 2019 at 12:34 Date of Discharge 03/22/2019 Attending Physician: SOHAIL WALLS MD Discharge Summary PROCEDURES PERFORMED DURING STAY: None. ADMITTING DIAGNOSES: 1. Hyperglycemic hyperosmolar syndrome. DISCHARGE DIAGNOSES: 1. Hyperglycemic hyperosmolar syndrome. COMPLICATIONS/CHIEF COMPLAINT: Cad,Diabetes Mellituswith Hyperglycemia,Diabetic. HISTORY OF PRESENT ILLNESS: 53-year-old female with past medical history diabetes mellitus, coronary artery disease, [place], status post CABG, COPD, was admitted for hyperglycemic hyperosmolar syndrome. She was treated with IV insulin push followed by insulin drip and admitted to the ICU initially, blood glucose returned within normal limits, patient started on diet and home insulin regimen of Levemir 50 units twice a day with sliding so coverage. Her fingersticks have remained well controlled over 12 hours, patient tolerating diet, patient no longer having abdominal pain, nausea, vomiting. She is back to her baseline on her home regimen, clinically hemodynamically stable for di scharge and outpatient follow-up. HOSPITAL COURSE: As above. DISCHARGE MEDICATIONS: Please see below. ALLERGIES: Please see below. PHYSICAL EXAMINATION: VITAL SIGNS: Please see below. GENERAL: No distress HEENT: Normocephalic, atraumatic, moist mucous membranes NECK: Supple CARDIOVASCULAR EXAMINATION: S1, S2, tachycardic RESPIRATORY EXAMINATION: Clear to auscultation, no wheezing ABDOMINAL EXAMINATION: Soft, mild tenderness, nondistended, positive bowel sounds EXTREMITIES: Range of motion intact SKIN: No rash NEUROLOGICAL EXAMINATION: Alert and oriented 3, no focal deficits PSYCHIATRIC EXAMINATION: Calm and cooperative LABORATORY DATA: Please see below. PROGNOSIS: Fair ACTIVITY: As tolerated. DIET: Cardiac consistent carbs DISCHARGE PLAN: Follow with PCP in 1-2 weeks DISPOSITION: 01 Home, Self-Care. DISCHARGE INSTRUCTIONS: 1. As above. DISCHARGE CONDITION: Stable. TIME SPENT ON DISCHARGE: Greater than 32 minutes. Vital Signs/I&Os Vital Signs Date Time Temp Pulse Resp B/P (MAP) Pulse Ox O2 Delivery O2 Flow Rate FiO2 03/22/19 08:33 127/60 03/22/19 08:00 97.6 96 18 96 Room Air I&O- Last 24 Hours up to 6 AM 03/22/19 06:00 Intake Total 5644 ml Output Total 2600 ml Balance 3044 ml Laboratory Data Labs 24H Laboratory Tests 2 03/21/19 21:28: Bedside Glucose (Misc Panel) 272H 03/22/19 04:57: Nucleated Red Blood Cells % (auto) 0.0, Anion Gap 4L, Glomerular Filtration Rate > 60.0, Calcium Level 9.2, Magnesium Level 2.0, Total Bilirubin 0.5#, Aspartate Amino Transf (AST/SGOT) 11, Alanine Aminotransferase (ALT/SGPT) 15, Alkaline Phosphatase 132H, Total Protein 6.9, Albumin 2.7L, Albumin/Globulin Ratio 0.64L 03/22/19 08:37: Bedside Glucose (Misc Panel) 184H CBC/BMP Laboratory Tests 03/22/19 04:57 FSBS Laboratory Tests Test 03/21/19 21:28 03/22/19 08:37 Range/Units Bedside Glucose (Misc Panel) 272 184 70-105 MG/DL Microbiology Microbiology 03/21/19 Urine Culture - Final, Complete Discharge Medications Scheduled Aspirin (Aspirin) 325 Mg Tab, 325 MG PO DAILY, (Reported) Atorvastatin Calcium (Atorvastatin Calcium) 40 Mg Tab, 40 MG PO DAILY, (Reported) Docusate Sodium (Stool Softener) 100 Mg Cap, 100 MG PO BID, (Reported) Duloxetine Hcl (Cymbalta) 60 Mg Cap, 60 MG PO BID, (Reported) Ertugliflozin Pidolate (Steglatro) 15 Mg Tablet, 15 MG PO DAILY, (Reported) Ferrous Sulfate (Ferrous Sulfate) 325 Mg Tablet, 325 MG PO BID, (Reported) Fluticasone/Vilanterol (Breo Ellipta 200-25 Mcg INH) 1 Each Blst.w.dev, 1 PUFF INH DAILY, (Reported) Folic Acid (Folic Acid) 1 Mg Tab, 1 MG PO DAILY, (Reported) Insulin Degludec (Tresiba Flextouch U-200) 200 Unit/1 Ml Insuln.pen, 50 UNIT SC BID, (Reported) Insulin Lispro (Admelog) 100 Unit/1 Ml Vial, 0 SC ACHS, (Reported) PER SLIDING SCALE Lisinopril (Lisinopril) 5 Mg Tab, 5 MG PO DAILY, (Reported) Loratadine (Loratadine) 10 Mg Tab, 10 MG PO DAILY, (Reported) Metformin HCl (Metformin HCl ER) 500 Mg Tab.er.24h, 1,000 MG PO BID, (Reported) Omeprazole (Omeprazole) 40 Mg Cap, 40 MG PO DAILY, (Reported) Pentoxifylline (Pentoxifylline) 400 Mg Tabcr, 400 MG PO TID, (Reported) Scheduled PRN Albuterol Sulfate (Ventolin Hfa) 108 Mcg/Act Aer, 2 PUFF INH Q4H PRN for SHORTNESS OF BREATH, (Reported) Cyclobenzaprine HCl (Cyclobenzaprine HCl) 5 Mg Tab, 5 MG PO Q12H PRN for MUSCLE SPASMS, (Reported) Nystatin (Nystatin Powder) 15 Gm Powder, 1 DOSE TOP BID PRN for RASH/ITCHING, (Reported) APPLY UNDER BREASTS AND FOLDS Allergies Coded Allergies: Grapefruit (Unverified Allergy, Unknown, 08/23/18) SOHAIL WALLS MD Mar 22, 2019 19:40
== END 2019-03-22 13:00 | disposition home or self-care (01) | DRG 420 ==
LOC: M ED 09:06 → EEVIPCON 12:34 → M ED INP 12:34 → M ICU 13:35 → M MS4PR 03-22 07:56
PROVIDERS: ADMIT Internal Medicine; ATTEND Internal Medicine
DX: E11.00 Type 2 diabetes mellitus with hyperosmolarity without nonketotic hyperglycemic-hyperosmolar coma (NKHHC) (principal); J44.9 Chronic obstructive pulmonary disease, unspecified; I25.10 Atherosclerotic heart disease of native coronary artery without angina pectoris; I25.2 Old myocardial infarction; Z95.1 Presence of aortocoronary bypass graft; Z79.82 Long term (current) use of aspirin; Z79.899 Other long term (current) drug therapy; Z79.4 Long term (current) use of insulin; F17.200 Nicotine dependence, unspecified, uncomplicated

== ENCOUNTER → 2019-04-05 | Outpatient (CLI) | payer OTHER ==
[~2019-04-05] MED LIST changes: +BREO1INH3 INH; +FERR1TAB8 PO; +METF-791 PO; +NYST1POW9 TOP; +TRES1INJ SC
--- NOTE | 2019-04-05 10:15 | REP ---
Bilateral lower extremity arterial Doppler ultrasound: History: Peripheral vascular disease with claudication. Status post left lower extremity angioplasty. Comparison angiography February 27, 2019. Comparison sonography February 06, 2019. Findings: Ankle brachial index on the right is 0.69 and on the left 0.94. Extensive plaquing is seen bilaterally, right greater than left. Monophasic waveforms are noted throughout the right lower extremity. There is an origin stenosis in the right common iliac artery with elevated velocities seen. There is a profunda femoral origin stenosis on the left felt to be present. The left distal [employer]GER is occluded and can shows reverse flow. Elevated flow velocities are seen in the left lower extremity proximal arteries. The aortic systolic flow velocity is normal and 94.6 cm/sec. Right lower extremity arterial Doppler velocity chart: Right DIANA 438 cm/sec CF A 212/142 Profunda 158 Proximal SFA 144/258 Mid SFA 75/372 Distal SFA 103 Popliteal 62 Proximal AT A 33 Tibioperoneal trunk 64 Proximal [employer] MA[employer]GER 51 Distal [employer] MA[employer]GER 31 Distal AT A 45 Left lower extremity arterial Doppler velocity chart: Left DIANA 195 cm/S CF A 216 Profunda 254 Proximal SFA 210 Mid SFA 182 Distal SFA 121 Popliteal 149 Proximal AT A 128 02/09 Tibioperoneal trunk 89 Proximal [employer]GER 75 Distal [employer]GER occluded / reversed Distal AT A 101 Electronically Signed by Vincenzo Almodovar MD 04/05/2019 10:06 A
== END ==
LOC: M RAD 07:37
PROVIDERS: ATTEND Physician Assistant
DX: I70.213 Atherosclerosis of native arteries of extremities with intermittent claudication, bilateral legs (principal)

== ENCOUNTER → 2019-04-05 | Outpatient (CLI) | payer OTHER ==
[2019-04-05 10:19] LABS: ALBUMIN 3.1 GM/DL (3.2-5.2); ALT/SGPT 15 U/L (12-78); BILIRUBIN,TOTAL 0.1 MG/DL (0.2-1.0); BLOOD UREA NITROGEN 21 MG/DL (7-18); CALCIUM LEVEL 9.2 MG/DL (8.5-10.1); CARBON DIOXIDE LEVEL 30 MEQ/L (21-32); CHLORIDE LEVEL 104 MEQ/L (98-107); CREATININE FOR GFR 0.85 MG/DL (0.55-1.30); GLOMERULAR FILTRATION RATE > 60.0 (>51); GLUCOSE, FASTING 126 MG/DL (70-100); POTASSIUM SERUM 4.8 MEQ/L (3.5-5.1); SODIUM LEVEL 138 MEQ/L (136-145); TOTAL PROTEIN 6.8 GM/DL (6.4-8.2)
[2019-04-05 10:33] LABS: HEMOGLOBIN A1c 12.2 %
== END ==
LOC: M LAB 09:11
PROVIDERS: ATTEND Physician Assistant
DX: Z79.84 Long term (current) use of oral hypoglycemic drugs (principal)

== ENCOUNTER → 2019-05-17 | Outpatient (CLI) | payer OTHER ==
[~2019-05-17] MED LIST changes: +CLOP75TA2 PO; +CLOPIDOGREL 75 MG TAB As Ordered ONE; +HEPARIN 1,000 UNITS/ML 10ML VIAL (FOR RADIOLOGY& DIALYSIS ONLY)(J1644-10) As Ordered ONE; +HumuLIN R (REGULAR) INSULIN (NovoLIN R) **100U/ML** PER UNIT IV ONE; +ISOVUE-300 61% 50ML VIAL (Q9967) As Ordered ONE; +LIDOCAINE 1% MDV 20ML VIAL As Ordered ONE; +MIDAZOLAM INJ 2 MG/2 ML VIAL (J2250) As Ordered ONE; +fentaNYL 100 MCG/2 ML INJECTION (J3010) As Ordered ONE
[2019-05-17 07:35] LABS: HEMOGLOBIN 14.7 g/dl (12.0-15.5); MEAN CORPUSCULAR HEMOGLOBIN 27.9 pg (27.0-33.0); MEAN CORPUSCULAR VOLUME 87.5 fl (80.0-96.0); PLATELET COUNT, AUTOMATED 268 10^3/uL (150-450); RED BLOOD COUNT 5.26 10^6/uL (4.00-5.40); WHITE BLOOD COUNT 9.7 10^3/uL (4.0-10.0)
[2019-05-17 08:07] LABS: BLOOD UREA NITROGEN 22 MG/DL (7-18); CALCIUM LEVEL 8.7 MG/DL (8.5-10.1); CARBON DIOXIDE LEVEL 29 MEQ/L (21-32); CHLORIDE LEVEL 101 MEQ/L (98-107); CREATININE FOR GFR 0.97 MG/DL (0.55-1.30); GLOMERULAR FILTRATION RATE > 60.0 (>51); GLUCOSE, FASTING 402 MG/DL (70-100); POTASSIUM SERUM 4.8 MEQ/L (3.5-5.1); SODIUM LEVEL 136 MEQ/L (136-145)
--- NOTE | 2019-05-17 10:05 | ROOPDOC ---
[facility] Report Of Operation Report of Operation DATE OF PROCEDURE: 05/17/19 PREPROCEDURE DIAGNOSES: Atherosclerosis of the the [place] vessels with lifestyle limiting claudication POSTPROCEDURE DIAGNOSES: Same PROCEDURE: 1. Ultrasound-guided access left common femoral artery 2. Aortoiliofemoral arteriogram 3. Predilation right common iliac artery with 6 x 40 Elliston balloon 4. Placement of right and left common iliac artery stents, 8 x 37 express balloon expandable stents 5. Selection of right common femoral artery with right lower extremity runoff 6. Angioplasty right superficial femoral artery and proximal popliteal artery with 4 x 200 Elliston balloon 7. Completion arteriograms 8. Cross chronic total occlusion right posterior tibial artery and angioplasty with 2 x 220 Hussein balloon 9. Selection right popliteal artery with tibial runoff for completion arteriogram 10. Mynx closure left common femoral artery SURGEON: Kristin Michel MD ANESTHESIA: Local anesthesia 5 mL lidocaine. Moderate intravenous conscious sedation was supervised by Dr. Michel. The patient was independently monitored by registered nurse assigned to the Department of radiology using automated blood pressure, EKG, and pulse oximetry. The detailed sedation record is permanently stored in the hospital information system. The following is the brief sedation record: Start time 08:13, stop time 09:29, Versed 1 mg IV, fentanyl 50 g IV, heparin 5000 units IV, insulin 8 units IV. INDICATION FOR PROCEDURE: Ms. Soto is a very pleasant 54-year-old patient with lifestyle limiting claudication, now status post percutaneous intervention for the left lower extremity and doing much better with that leg, but limited still in her ambulation by severe symptoms in the right lower extremity. Risks benefits and alternatives to an arteriogram and potential intervention were explained to the patient and she was agreeable to proceed. Informed consent was obtained. The patient's blood glucose was 400 under morning labs, and 8 units of insulin was given before the case and we will recheck her fingerstick glucose after the procedure. INTERPRETATION: 1. The distal aorta is diminutive as are the iliac vessels, with the common iliac artery on the left having about a 50% stenosis along its length and the common iliac on the right having a focal 80% stenosis proximally with post- dilation noted in the mid distal common iliac artery. The hypogastric cerebrals patent but diminutive in size as well, and the external iliacs are also patent and runoff into widely patent common femoral arteries. 2. After post-dilation of the right common iliac artery there was improvement in flow, and suitable anatomy for stent placement. There was excellent flow through both common iliac arteries after 8 x 37 express stents were placed from the origin to the mid distal vessel. The hypogastrics and external iliac arteries were also widely patent. No dissection embolization or extravasation was noted. 3. On the right lower extremity, the common femoral arteries patent and there is excellent flow into 2 large profunda vessels. The as a phase diminutive in size but patent proximally with intermittent ectasia, and there is a focal 80% stenosis in the mid distal SFA and some ectasia with calcification in the proximal and mid popliteal artery as well. The distal popliteal artery is widely patent and primarily runs off through a diminutive peroneal artery which gives off a collateral to the distal posterior tibial artery, and also good runoff through the anterior tibial artery to the foot. The posterior tibial artery occludes near its origin and reconstitutes at the ankle through the before ment ioned collateral from the distal peroneal artery. 4. After angioplasty of the SFA and proximal mid popliteal artery, there was w idely patent flow with less than 20% residual stenoses and no flow limitation. No extravasation embolization or dissections were noted. 5. After crossing the chronic total occlusion in the posterior tibial artery and angioplasty, the vessel was patent but flow was a bit sluggish, likely due to some spasm, but contrast did pass all the way from the proximal PT to the foot. REPORT OF OPERATION: The patient was brought to the angiographic suite in stable condition. Her bilateral groins were prepped and draped in sterile fashion. A timeout was performed. Local anesthesia was administered to the skin and subcutaneous tissue in the left groin and a microneedle was used to access the common femoral artery under ultrasound guidance. A wire was passed through this access under fluoroscopic guidance and a micro-sheath was placed. Through this access, a Glidewire was advanced into the aorta under fluoroscopic guidance and a 6 Kinyarwanda sheath was placed and flushed with saline. We advanced an Omni flushed catheter over the wire into the distal aorta and in aortoiliofemoral arteriogram was performed. Please see interpretation above. We then exchange the sheath for a 45 cm sheath up to but not across the aortic bifurcation and passed a 6 x 40 Elliston balloon across the tight stenosis in the right common iliac artery and predilated for 30 seconds inflation. Following this, contrast injection through the sheath revealed improved patency but still significant stenosis. We selected an 8 x [address] it up to but not extending into the aorta. It is from the origin of the common iliac artery to the mid distal artery. This was deployed successfully and quit contrast injection through the sheath confirmed excellent placement with resolution of stenosis and no extravasation or embolization. We then retracted this sheath a few centimeters and deployed a second stent, 8 x 37 express, across the common iliac artery on the left. Following this, we found rapid inflow through both iliac vessels, and the stent was placed up to but not across the origin of the common iliac artery and no embolization or extravasation was noted. We went up and over the bifurcation with a Glidewire and apply cath and selected the right common femoral artery and right lower extremity arteriograms were performed, please see interpretation above. We then passed a Glidewire into the SFA and the popliteal artery under fluoroscopic guidance and tract to glide Over the wire. We exchange the wire for an Amplatz superstiff wire and the 6 Kinyarwanda sheath was then advanced up and over the bifurcation to the common femoral artery. The sheath was flushed with saline. We then angioplasty the length of the SFA and across the proximal popliteal artery with 3 three-minute inflations of a 4 x 200 Elliston balloon. Following this, there was widely patent flow through the SFA and popliteal with less than 20% residual stenosis at the areas of tight st enoses. Next, we advanced a Glidewire advantage 018 wire down to the posterior tibial artery and were able to carefully navigate the wire across the chronic total occlusion in the proximal mid and distal vessel. Once we were across into the plantar vessel in the foot, we attempted to pass a 2 x 220 Hussein balloon across the occlusion. Unfortunately, we can only get prison across the occlusion at the ankle, so we did a few balloon inflations and deflation's until we were able to advance the wire all the way down to the ankle. Then, a three- minute inflation was performed distally and then another three-minute duration was performed proximally. Following this, we selected the popliteal artery with a glide cath and a completion arteriogram of the tibials was performed that showed good runoff all the way to the foot through all 3 vessels. The posterior tibial was still diminutive in size and had a bit of spasm but there was flow all the way through the vessel to the foot. The collateral from the peritoneal to the posterior tibial distally was still patent. We then exchange the wire for an O35 wire and exchange the sheath for short 6 Kinyarwanda sheath and flushed the sheath with saline. A Mynx closure device was deployed in the left groin with good hemostasis. Pressure was held for 10 minutes and the patient was taken to recovery in stable condition. He tolerated the procedure and the sedation well. ESTIMATED BLOOD LOSS: Approximately 5 mL. COMPLICATIONS: None. PLAN: Okay to resume home diet and medications. Patient will need to have 60 days of Plavix postprocedure due to stent placement in the iliac arteries. We will see her back in clinic in a week to check her left groin access site and see how she is doing after the procedure. KRISTIN MICHEL MD May 17, 2019 10:05
[2019-05-17 13:28] VITALS: BP 141/89
== END ==
LOC: M IRPRO 06:26 → EEVIPCON 07:30
PROVIDERS: ATTEND Surgery Vascular Surgery
DX: I70.203 Unspecified atherosclerosis of native arteries of extremities, bilateral legs (principal); I70.92 Chronic total occlusion of artery of the extremities
CPT/HCPCS: 37221; 37224; 37228; 75710; 75774; 80048; 85027; 99152; 99153; C1725; C1729; C1760; C1769; C1876; C1887; C1894; J1644; J2250; J3010; Q9967

== ENCOUNTER → 2019-06-14 | Outpatient (CLI) | payer OTHER ==
[~2019-06-14] MED LIST changes: -CLOPIDOGREL 75 MG TAB As Ordered ONE; -HEPARIN 1,000 UNITS/ML 10ML VIAL (FOR RADIOLOGY& DIALYSIS ONLY)(J1644-10) As Ordered ONE; -HumuLIN R (REGULAR) INSULIN (NovoLIN R) **100U/ML** PER UNIT IV ONE; -ISOVUE-300 61% 50ML VIAL (Q9967) As Ordered ONE; -LIDOCAINE 1% MDV 20ML VIAL As Ordered ONE; -MIDAZOLAM INJ 2 MG/2 ML VIAL (J2250) As Ordered ONE; -fentaNYL 100 MCG/2 ML INJECTION (J3010) As Ordered ONE
[2019-06-14 07:48] LABS: BASO # 0.1 10^3/uL (0.0-0.2); BASO % 0.9 % (0.0-1.0); EOS # 0.3 10^3/uL (0.0-0.5); EOS % 3.3 % (0.0-3.0); HEMOGLOBIN 14.7 g/dl (12.0-15.5); LYMPH # 2.7 10^3/uL (1.5-5.0); LYMPH % 26.2 % (24.0-44.0); MEAN CORPUSCULAR HEMOGLOBIN 27.8 pg (27.0-33.0); MONO # 0.7 10^3/uL (0.0-0.8); MONO % 6.6 % (0.0-5.0); NEUTROPHILS # 6.5 10^3/uL (1.5-8.5); NEUTROPHILS % 62.4 % (36.0-66.0); PLATELET COUNT, AUTOMATED 358 10^3/uL (150-450); RED BLOOD COUNT 5.29 10^6/uL (4.00-5.40); WHITE BLOOD COUNT 10.4 10^3/uL (4.0-10.0)
[2019-06-14 08:07] LABS: HEMOGLOBIN A1c 10.4 %
[2019-06-14 08:14] LABS: ALBUMIN 3.2 GM/DL (3.2-5.2); BILIRUBIN,TOTAL 0.2 MG/DL (0.2-1.0); CALCIUM LEVEL 9.4 MG/DL (8.5-10.1); CHOLESTEROL RISK RATIO 6.411 (<5); CREATININE FOR GFR 1.23 MG/DL (0.55-1.30); GLOMERULAR FILTRATION RATE 48.8 (>51); POTASSIUM SERUM 4.4 MEQ/L (3.5-5.1); TOTAL PROTEIN 7.1 GM/DL (6.4-8.2)
[2019-06-14 08:21] LABS: CREATININE, URINE 54.9 MG/DL; MALB URINE SIEMENS 51.4 MG/L; MAU/CREAT RATIO 93.6 MCG/MG (0.0-30.0)
== END ==
LOC: M LAB 06:51
PROVIDERS: ATTEND Physician Assistant
DX: E78.2 Mixed hyperlipidemia (principal); E11.40 Type 2 diabetes mellitus with diabetic neuropathy, unspecified

== ENCOUNTER 2019-06-17 12:14 | Emergency (ER) | payer OTHER ==
[~2019-06-17] VITALS: Ht 162.6 cm; Wt 76.7 kg
[2019-06-17 12:57] LABS: VENOUS BASE EXCESS -1.4 (-2.0-2.0); VENOUS HCO3 23.4 MEQ/L (23.0-27.0); VENOUS O2 SATURATION 98.4 % (60.0-80.0); VENOUS PARTIAL PRESSURE CO2 39.6 mmHg (38.0-50.0); VENOUS PARTIAL PRESSURE O2 142.2 mmHg (30.0-50.0); VENOUS PH 7.389 UNITS (7.330-7.430); VENOUS STANDARD HCO3 23.4 MEQ/L; VENOUS TOTAL CO2 24.6 MEQ/L (24.0-28.0)
[2019-06-17] MEDS ORDERED: NS 1,000 ML IV ONE (13:00)
[2019-06-17] MEDS ORDERED: METOCLOPRAMIDE INJ 10MG/2ML VIAL (J2765) IV ONE (13:00)
[2019-06-17 13:01] LABS: BASO # 0.1 10^3/uL (0.0-0.2); BASO % 0.6 % (0.0-1.0); EOS # 0.1 10^3/uL (0.0-0.5); EOS % 1.3 % (0.0-3.0); HEMATOCRIT 46.4 % (36.0-47.0); HEMOGLOBIN 14.9 g/dl (12.0-15.5); LYMPH # 1.5 10^3/uL (1.5-5.0); LYMPH % 14.8 % (24.0-44.0); MEAN CORPUSCULAR HGB CONC 32.1 g/dl (32.0-36.5); MEAN CORPUSCULAR VOLUME 87.1 fl (80.0-96.0); MONO # 0.4 10^3/uL (0.0-0.8); MONO % 4.1 % (0.0-5.0); NEUTROPHILS # 7.8 10^3/uL (1.5-8.5); NEUTROPHILS % 78.7 % (36.0-66.0); PLATELET COUNT, AUTOMATED 357 10^3/uL (150-450); RED BLOOD COUNT 5.33 10^6/uL (4.00-5.40); WHITE BLOOD COUNT 9.9 10^3/uL (4.0-10.0)
[2019-06-17 13:33] LABS: OSMOLALITY SERUM 313 MOSM/KG (275-295)
[2019-06-17 13:37] LABS: HEMOGLOBIN A1c 10.3 %
[2019-06-17 13:37] LABS: BLOOD UREA NITROGEN 22 MG/DL (7-18); CALCIUM LEVEL 8.9 MG/DL (8.5-10.1); CARBON DIOXIDE LEVEL 24 MEQ/L (21-32); CHLORIDE LEVEL 92 MEQ/L (98-107); CREATININE FOR GFR 1.15 MG/DL (0.55-1.30); GLOMERULAR FILTRATION RATE 52.8 (>51); GLUCOSE, FASTING 825 MG/DL (70-100); SODIUM LEVEL 126 MEQ/L (136-145)
[2019-06-17] MEDS ORDERED: HumuLIN R (REGULAR) INSULIN (NovoLIN R) **100U/ML** PER UNIT IV ONE (13:45)
[2019-06-17 13:46] VITALS: BP 169/78
[2019-06-17] MEDS ORDERED: INSULIN IV RATE CHANGE DOCUMENTATION ML/HR XX SCH ×2 (14:00→14:30)
[2019-06-17] MEDS ORDERED: INSULIN HUMAN REGULAR 100 UNITS in NS 99 ML IV SCH ×2 (14:00→15:00)
[2019-06-17] MEDS ORDERED: REGL10TA6 PO (14:36)
[2019-06-17 14:46] LABS: CK-MB VALUE MASS 2.3 NG/ML (<3.6); CPK CREATINE PHOSPHOKINASE 75 U/L (26-192); MB/CK RELATIVE INDEX 3.07 (< OR =4); TROPONIN I < 0.02 NG/ML (< 0.10)
[2019-06-17] MEDS ORDERED: NS 1,000 ML IV SCH (15:00)
--- NOTE | 2019-06-17 17:55 | ECGEPIP ---
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
[2019-06-17] MEDS ORDERED: LEVEMIR (INSULIN DETEMIR) 1 UNITS/0.01ML SC SCH (21:00)
--- NOTE | 2019-06-30 17:45 | HPE ---
DATE OF ADMISSION: 06/17/2019 HISTORY: Shawna Soto is a 54-year-old whom I was called to evaluate in the emergency room for diabetic ketoacidosis. In order to facilitate admission, I put some admission orders in before seeing the patient. I went down to the emergency room. She had already left against medical advice. Therefore, she was not examined or actually admitted. Against medical advice (AMA) procedure was through the emergency room.
--- NOTE | 2019-06-30 17:46 | DSES ---
DATE OF ADMISSION: 06/17/2019 DATE OF DISCHARGE: 06/17/2019 I was asked to do a discharge summary on Shawna Soto. She was never admitted. She left the hospital against medical advice from the emergency room before she could even have a history and physical done. Therefore, there is no discharge summary due as this patient was never admitted to the hospital. I put admission orders in prior to seeing her to facilitate traffic through the emergency room on a busy day but she left prior to actually being admitted.
== END 2019-06-17 14:45 | disposition left against medical advice (07) ==
LOC: M ED 12:14 → M ED INP 14:28 → UNDOADMIN 14:28 → UNDODISIN 14:45
DX: E11.65 Type 2 diabetes mellitus with hyperglycemia (principal); S91.301A Unspecified open wound, right foot, initial encounter; Z53.21 Procedure and treatment not carried out due to patient leaving prior to being seen by health care provider; I25.10 Atherosclerotic heart disease of native coronary artery without angina pectoris; I10 Essential (primary) hypertension; J44.9 Chronic obstructive pulmonary disease, unspecified; Z95.1 Presence of aortocoronary bypass graft; Z87.19 Personal history of other diseases of the digestive system; F17.290 Nicotine dependence, other tobacco product, uncomplicated; F17.200 Nicotine dependence, unspecified, uncomplicated; Z79.82 Long term (current) use of aspirin; Z79.4 Long term (current) use of insulin; Z79.899 Other long term (current) drug therapy; Z91.018 Allergy to other foods
CPT/HCPCS: 36415; 80048; 82550; 82553; 82803; 83036; 83605; 83930; 85025; 87040; 93005; 93041; 96361; 96374; 99284; J2765

== ENCOUNTER → 2019-06-26 | Outpatient (CLI) | payer OTHER ==
[~2019-06-26] MED LIST changes: +REGL10TA6 PO
--- NOTE | 2019-06-26 14:34 | REP ---
Bilateral lower extremity arterial Doppler ultrasound: History: Peripheral vascular disease and claudication. Status post iliac stents. Comparison study April 05, 2019. Findings: Ankle brachial index on the right is 0.66. On the left the ankle brachial index is 0.7 . Severe plaquing is seen bilaterally. Monophasic waveforms are noted throughout the right leg and in the left leg distal to the mid SFA. Multiple stenoses are seen in the right leg. Velocities have increased on the right from prior study. The distal ASSOCIATE [employer] on the left is occluded. The distal aortic peak systolic flow velocity is 94 cm/S. Right lower extremity arterial Doppler velocity chart: Right DIANA 8-101 cm/S E I A 158 CF A 228 Profunda 77 Proximal SFA 204 Mid SFA 164 Distal SFA 161 Popliteal 143 Proximal AT A 86 Tibioperoneal trunk 103 Proximal ASSOCIATE PROFESSOR [employer] LITERATURE 82 Distal ASSOCIATE PROFESSOR OF LITERATURE 98 Distal AT A 63 Left lower extremity arterial Doppler velocity chart: Left DIANA 206 cm/S E I A 172 CF A 157 Profunda 103 Proximal SFA 188 Mid SFA 185 Distal SFA 200 Popliteal 109 Proximal AT A 74 Tibioperoneal trunk 50 Proximal ASSOCIATE PROFESSOR [employer] LITERATURE 42 Distal ASSOCIATE PROFESSOR [employer] LITERATURE occluded Distal AT A 56 Electronically Signed by Vincenzo Almodovar MD 06/26/2019 02:25 P
== END ==
LOC: M RAD 07:26
PROVIDERS: ATTEND Physician Assistant
DX: I70.213 Atherosclerosis of native arteries of extremities with intermittent claudication, bilateral legs (principal); F17.210 Nicotine dependence, cigarettes, uncomplicated

== ENCOUNTER → 2019-07-05 | Outpatient (CLI) | payer OTHER ==
[2019-07-05 17:02] LABS: BASO # 0.1 10^3/uL (0.0-0.2); BASO % 0.6 % (0.0-1.0); EOS # 0.5 10^3/uL (0.0-0.5); EOS % 3.9 % (0.0-3.0); HEMATOCRIT 46.6 % (36.0-47.0); HEMOGLOBIN 15.3 g/dl (12.0-15.5); LYMPH # 2.5 10^3/uL (1.5-5.0); LYMPH % 20.1 % (24.0-44.0); MEAN CORPUSCULAR HEMOGLOBIN 29.1 pg (27.0-33.0); MEAN CORPUSCULAR HGB CONC 32.8 g/dl (32.0-36.5); MEAN CORPUSCULAR VOLUME 88.6 fl (80.0-96.0); MONO # 0.7 10^3/uL (0.0-0.8); MONO % 5.3 % (0.0-5.0); NEUTROPHILS # 8.8 10^3/uL (1.5-8.5); NEUTROPHILS % 69.5 % (36.0-66.0); PLATELET COUNT, AUTOMATED 290 10^3/uL (150-450); RED BLOOD COUNT 5.26 10^6/uL (4.00-5.40); WHITE BLOOD COUNT 12.6 10^3/uL (4.0-10.0)
[2019-07-05 17:29] LABS: OSMOLALITY SERUM 294 MOSM/KG (275-295)
[2019-07-05 17:34] LABS: ALT/SGPT 15 U/L (12-78); BILIRUBIN,DIRECT < 0.1 MG/DL (0.0-0.2); BILIRUBIN,TOTAL 0.1 MG/DL (0.2-1.0); BLOOD UREA NITROGEN 13 MG/DL (7-18); C REACTIVE PROTEIN QUANTITATIV 1.76 MG/DL (0.00-0.30); CALCIUM LEVEL 9.1 MG/DL (8.5-10.1); CARBON DIOXIDE LEVEL 29 MEQ/L (21-32); CHLORIDE LEVEL 106 MEQ/L (98-107); CREATININE FOR GFR 0.97 MG/DL (0.55-1.30); GLOMERULAR FILTRATION RATE > 60.0 (>51); GLUCOSE, FASTING 119 MG/DL (70-100); POTASSIUM SERUM 4.8 MEQ/L (3.5-5.1); SODIUM LEVEL 139 MEQ/L (136-145); TOTAL PROTEIN 6.9 GM/DL (6.4-8.2)
== END ==
LOC: M LAB 16:17
PROVIDERS: ATTEND Physician Assistant
DX: E11.40 Type 2 diabetes mellitus with diabetic neuropathy, unspecified (principal)

== ENCOUNTER → 2019-07-26 | Outpatient (CLI) | payer OTHER ==
[~2019-07-26] MED LIST changes: +ACETAMINOPHEN 325 MG TAB As Ordered ONE; +CLOPIDOGREL 75 MG TAB As Ordered ONE; +HEPARIN 1,000 UNITS/ML 10ML VIAL (FOR RADIOLOGY& DIALYSIS ONLY)(J1644-10) As Ordered ONE; +ISOVUE-300 61% 50ML VIAL (Q9967) As Ordered ONE; +LIDOCAINE 1% MDV 20ML VIAL As Ordered ONE; +MIDAZOLAM INJ 2 MG/2 ML VIAL (J2250) As Ordered ONE; +fentaNYL 100 MCG/2 ML INJECTION (J3010) As Ordered ONE
[2019-07-26] MEDS: ACETAMINOPHEN TAB 650MG DOSE (2X325MG) PO PRN (08:55)
--- NOTE | 2019-07-26 09:00 | ROOPDOC ---
[facility] Report Of Operation Report of Operation DATE OF PROCEDURE: 07/26/19 PREPROCEDURE DIAGNOSES: Atherosclerosis of the [place] vessels with lifestyle limiting claudication and pain right lower extremity POSTPROCEDURE DIAGNOSES: Same PROCEDURE: 1. Ultrasound-guided access left common femoral artery 2. Aortoiliofemoral arteriogram with selection of left superficial femoral artery and popliteal artery with right lower extremity runoff 3. Angioplasty of right superficial femoral artery and popliteal artery with 5 x 200 Scio balloon 4. Stenting of right popliteal artery proximally with 5 x 100 Innova stent, and extension the proximal superficial femoral artery with 6 x 150 and 6 x 100 Innova stent 5. Post-dilation stents and angioplasty proximal SFA with 5 x 200 Scio balloon 6. Completion arteriograms 7. Mynx closure left common femoral artery SURGEON: Kristin Michel MD ANESTHESIA: Local anesthesia 6 mL lidocaine. Moderate intravenous conscious sedation was supervised by Dr. Michel. The patient was independently monitored by registered nurse assigned to the Department of radiology using a utomated blood pressure, EKG, and pulse oximetry. The details sedation record is permanently stored in the hospital information system. The following is the brief sedation record: Start time 07:34, stop time 08:35, Versed 1 mg IV, fentanyl 50 g IV, heparin 5000 units IV. CONTRAST: 51 mL Isovue-300 INDICATION FOR PROCEDURE: Ms. Soto is a very pleasant 54-year-old patient with lifestyle limiting claudication and right lower extremity pain secondary to atherosclerosis the [place] vessels. Risks benefits and alternatives to an arteriogram potential intervention were explained to the patient she is agreeable to proceed. Informed consent was obtained. INTERPRETATION: 1. The patient's [place] vessels are universally small in size. The aortoiliac segment inflow bilaterally is widely patent. There is widely patent inflow through the common iliac artery, hypogastric, and external iliac artery although all are diminutive in size. 2. The right common femoral artery and profunda are widely patent, and there is a mild 20-30% stenosis focally at the origin of the SFA, and several other focal stenoses in the proximal a few centimeters of the vessel about 20-30%, but distal to this, the entire is a is calcified narrowed and has heavy irregular ectatic plaque. The proximal popliteal artery also has some diffuse narrowing and ectatic plaque, but the mid and distal popliteal artery appear widely patent . These vessels are also diminutive in size. Below the knee, the patient has runoff through all 3 tibials with the past runoff through the anterior tibial artery and peroneal artery. The anterior tibial artery flow to the dorsal pedis arteries rapid. The posterior tibial artery, again, is very diminutive in size but does have flow all way to the ankle. 3. After angioplasty of the SFA and popliteal artery, there was diffuse dissection through the SFA and still irregular plaque and luminal narrowing that was flow-limiting in the proximal popliteal artery as well. 4. After stenting the proximal popliteal artery and SFA and post dilating, we had widely patent flow through the SFA and popliteal artery into the tibial vessels. No distal embolization was noted on completion arteriogram, although the diminutive posterior tibial artery did have some spasm postprocedure. After stenting, no further dissection was noted. No extravasation was noted. REPORT OF OPERATION: The patient was brought to the angiographic suite in stable condition. Her bilateral groins were prepped and draped in a sterile fashion. A timeout was performed. Sedation was administered without compensation. Local anesthesia was administered to the skin and subcutaneous tissue over the left common femoral artery. A microneedle was used to access left common femoral artery under ultrasound guidance. A wire was passed through this access under fluoroscopic guidance a 4 Italian sheath was placed and flushed with saline. A Glidewire and on the flushed catheter were advanced under fluoroscopic guidance into the distal aorta. Aortoiliofemoral arteriograms were performed, please interpretation above. We then went up and over the bifurcation with Omni flushed catheter and the Glidewire. We selected the right common femoral and superficial femoral artery and right lower extremity arteriogram was performed. We then advanced Omni flushed catheter further into the right SFA under runoff was performed. Please interpretation above. We then exchange the sheath for a 6 Hari [facility] 45 cm destination sheath and flushed the sheath with saline. A Intela catheter was passed over the wire and use to help navigate the Glidewire through the SFA heavy plaque and stenoses and into the distal popliteal artery and tibial vessels. After selected the popliteal artery, we confirmed we're in the true lumen with a quick contrast injection. We then selected 5 x 200 Scio balloon and angioplasty from the proximal popliteal artery to the proximal SFA for three-minute inflations along the length of the vessel. Following this there was a significant flow-limiting dissection throughout most of the SFA due to heavy bulky plaque. We tried a second angioplasty to see if this would help resolve the dissection, but it did not. We then stented from the proximal popliteal artery starting with a 5 x 100 Innova stent, and then placed a 6 x 150 Innova stent more proximally through the SFA with a 1 cm overlap, and then a 6 x 100 Innova stent with a 1 cm overlap. All of these were postdilated with the 5 x 200 Scio balloon and we also did a second three-minute inflations across the proximal SFA proximal to the area stented. Following this, there was widely patent inflow through the SFA with no residual stenosis or dissection noted. There is no extravasation and on completion arteriogram of the distal tibials we saw no embolization. There was some spasm in the posterior tibial artery, but it was extremely diminutive and I felt best just to leave it alone for now. Some of the patient's vascular size may be secondary to nicotine dependence, as she says she did smoke directly before coming to the procedure. We had a lengthy discussion today again about the need for smoking cessation and the patient says she is willing to try. This concluded her procedure. We exchanged the sheath over the wire for short 6 Italian sheath and the plan Mynx closure device with good hemostasis. Pressure was held for 10 minutes and sterile dressings were applied and the patient was taken to recovery in stable condition. She tolerated the procedure and the sedation well. ESTIMATED BLOOD LOSS: Approximately 5 mL. COMPLICATIONS: None. PLAN: It is okay to resume home diet medications. We will see the patient back in a week to check her groin access site in her perfusion. She will need at [facility] another 60 days of Plavix status post stenting of her right SFA. We will give her dose of Plavix in recovery today. She should continue to aggressively try to quit smoking. Her long-term perfusion depends on it. Her vessels are very small, and with nicotine vasoconstriction, she is getting very limited perfusion to her legs. This is likely the biggest source of pain, and I would expect her lower extremity pain to dramatically improve if she will quit smoking. We appreciate the opportunity to participate in the care of this patient. KRISTIN MICHEL MD Jul 26, 2019 09:00
[2019-07-26 12:22] VITALS: BP 148/77
== END ==
LOC: M IRPRO 06:18
PROVIDERS: ATTEND Surgery Vascular Surgery
DX: I70.213 Atherosclerosis of native arteries of extremities with intermittent claudication, bilateral legs (principal); I70.221 Atherosclerosis of native arteries of extremities with rest pain, right leg; E11.51 Type 2 diabetes mellitus with diabetic peripheral angiopathy without gangrene; F41.9 Anxiety disorder, unspecified; F32.9 Major depressive disorder, single episode, unspecified; E78.00 Pure hypercholesterolemia, unspecified; I51.9 Heart disease, unspecified; F17.210 Nicotine dependence, cigarettes, uncomplicated; Z79.82 Long term (current) use of aspirin; Z79.899 Other long term (current) drug therapy; Z91.018 Allergy to other foods; Z98.51 Tubal ligation status

== ENCOUNTER → 2019-08-25 | Outpatient (CLI) | payer OTHER ==
[~2019-08-25] MED LIST changes: -ACETAMINOPHEN 325 MG TAB As Ordered ONE; -CLOPIDOGREL 75 MG TAB As Ordered ONE; -HEPARIN 1,000 UNITS/ML 10ML VIAL (FOR RADIOLOGY& DIALYSIS ONLY)(J1644-10) As Ordered ONE; -ISOVUE-300 61% 50ML VIAL (Q9967) As Ordered ONE; -LIDOCAINE 1% MDV 20ML VIAL As Ordered ONE; -METF-791 PO; +METF-838 PO; -MIDAZOLAM INJ 2 MG/2 ML VIAL (J2250) As Ordered ONE; -fentaNYL 100 MCG/2 ML INJECTION (J3010) As Ordered ONE
--- NOTE | 2019-08-25 09:15 | REP ---
Bilateral lower extremity arterial Doppler ultrasound: History: Atherosclerosis. Comparison study June 26, 2019. The patient is apparently status post iliac stents. On July 26, 2019 the patient underwent right lower extremity angioplasty of the superficial femoral artery. Right popliteal artery angioplasty and stenting. Findings: Ankle brachial indices are measured at 0.8 on the right and 0.7 on the left. Atherosclerotic plaquing is visible bilaterally. Predominately monophasic waveforms are noted in the left lower extremity arteries. The distal posterior tibial artery is occluded on the left. On the right, patent stents are seen with triphasic flow in the right lower extremity to the distal superficial femoral artery. Monophasic flow is seen in the popliteal artery, tibioperoneal trunk, proximal anterior tibial and distal anterior and posterior tibial arteries. Right lower extremity arterial Doppler velocity chart: Right CF A PSV 208 cm/S Profunda 81 Proximal SFA 71 Mid SFA 34 Distal SFA 36 Popliteal 52 Proximal AT A 55 Tibioperoneal trunk 54 Proximal DRY CAN TENDER 41 Distal DRY CAN TENDER 23 Distal AT A 40 Left lower extremity arterial Doppler velocity chart: Left CF A PSV 146 cm/S Profunda 74 Proximal SFA 127 Mid SFA 122 Distal SFA 142 Popliteal 54 Proximal AT A 109 Tibioperoneal trunk 58 Proximal DRY CAN TENDER 38 Distal DRY CAN TENDER occluded Distal AT A 48 Electronically Signed by Vincenzo Almodovar MD 08/25/2019 09:07 A
== END ==
LOC: M RAD 07:20
PROVIDERS: ATTEND Physician Assistant
DX: I70.213 Atherosclerosis of native arteries of extremities with intermittent claudication, bilateral legs (principal)

== ENCOUNTER → 2019-09-19 | Outpatient (CLI) | payer OTHER ==
[~2019-09-19] MED LIST changes: +HumaLOG INSULIN (NovoLOG) PER UNIT SC ONE; +ISOVUE-300 61% 50ML VIAL As Ordered ONE; +LIDOCAINE 1% MDV 20ML VIAL As Ordered ONE; +MIDAZOLAM INJ 2MG/2ML VIAL (J2250 PER 1MG) As Ordered ONE; +fentaNYL 100 MCG/2 ML INJECTION (J3010) As Ordered ONE
[2019-09-19 07:28] LABS: HEMOGLOBIN 13.5 g/dl (12.0-15.5); MEAN CORPUSCULAR HEMOGLOBIN 28.1 pg (27.0-33.0); MEAN CORPUSCULAR HGB CONC 32.1 g/dl (32.0-36.5); MEAN CORPUSCULAR VOLUME 87.5 fl (80.0-96.0); PLATELET COUNT, AUTOMATED 259 10^3/uL (150-450); WHITE BLOOD COUNT 11.3 10^3/uL (4.0-10.0)
[2019-09-19 07:37] LABS: BLOOD UREA NITROGEN 16 MG/DL (7-18); CALCIUM LEVEL 8.7 MG/DL (8.5-10.1); CARBON DIOXIDE LEVEL 30 MEQ/L (21-32); CHLORIDE LEVEL 103 MEQ/L (98-107); CREATININE FOR GFR 0.96 MG/DL (0.55-1.30); GLOMERULAR FILTRATION RATE > 60.0 (>51); GLUCOSE, FASTING 355 MG/DL (70-100); POTASSIUM SERUM 4.1 MEQ/L (3.5-5.1); SODIUM LEVEL 136 MEQ/L (136-145)
--- NOTE | 2019-09-19 09:41 | ROOPDOC ---
[facility] Report Of Operation Report of Operation DATE OF PROCEDURE: 09/19/19 PREPROCEDURE DIAGNOSES: Atherosclerosis the [place] vessels with nonhealing wound of the left heel and left plantar foot POSTPROCEDURE DIAGNOSES: Same PROCEDURE: 1. Ultrasound-guided access right common femoral artery 2. Aortoiliofemoral arteriogram and left lower extremity runoff from selection of left common femoral and superficial femoral arteries 3. Selective view of left posterior tibial artery distally and plantar vessels 4. Angioplasty left proximal popliteal artery and Alpesh's canal with 4 x 200 Ellsworth balloon 5. Stent from Alpesh's canal to proximal popliteal artery 5 x 150 Innova stent, postdilated with 4 x 100 Ellsworth balloon 6. Cross chronic total occlusion left posterior tibial artery and plantar arch and angioplasty with 2.5 x 220 Hussein balloon 7. Completion arteriograms 8. Mynx closure right common femoral artery SURGEON: Kristin Michel MD ANESTHESIA: Local anesthesia with 5 mL lidocaine. Moderate intravenous conscious sedation was supervised by Dr. Michel. The patient was independently monitored by registered nurse assigned to the Department of radiology using automated blood pressure, EKG, and pulse oximetry. A detailed sedation record is permanently stored in the hospital information system. The following is a brief sedation record: Start time 07:47, stop time 09:11, Versed 2 mg IV, fentanyl 100 g IV, heparin 5000 units IV. CONTRAST: 58 mL Isovue-300 INDICATION FOR PROCEDURE: This is a very pleasant 54-year-old patient with severe tobacco dependence and recurrent significant peripheral vascular disease with nonhealing foot wounds, now with worsening wounds of the left heel and plantar foot. Her last endovascular intervention was in February 2019, at which point we were able to successfully angioplasty her superficial femoral artery, popliteal artery, and all 3 tibial vessels. Since that time, a repeat arterial duplex shows that she has recurrent stenosis in the popliteal artery and distal occlusion of the posterior tibial artery. Wrist benefits and alternatives to a repeat arteriogram and potential intervention were explained to the patient and she was agreeable to proceed. Informed consent was obtained. Lengthy discussion was had with the patient preop about smoking cessation. INTERPRETATION: 1. The distal aorta and iliac segments are patent. There is some calcification ectasia, but no flow-limiting stenoses are noted. The common iliac arteries, hypogastric arteries, and external iliac arteries are widely patent bilaterally. 2. The left common femoral artery is widely patent and runs off into a widely patent profunda and superficial femoral artery. There is some calcification throughout, but no flow-limiting stenoses are noted. At Alpesh's canal, the ectasia is a little more significant with increased calcification, but stenosis is approximately 20-30%. The popliteal artery overall is widely patent, but there is a focal 80% stenosis in the proximal portion. Distal to this, there is widely patent runoff with a high takeoff of the anterior tibial artery in the mid popliteal artery, and a low bifurcation of the distal popliteal artery into the posterior tibial artery and peroneal artery. The anterior tibial artery and peroneal artery are patent, with the anterior tibial artery being the sole runoff to the foot. There is some calcification in ectasia in the anterior tibial artery, but overall flow is rapid and unimpeded. The peroneal artery and just above the ankle. The posterior tibial artery occludes in the upper calf and does not reconstitute at the ankle. 3. After angioplasty of the posterior tibial artery and Alpesh's canal, there was still irregularity in the lumen of the vessel at Alpesh's canal and residual 50% stenosis at the focal stenoses in the proximal popliteal artery. After stenting and post dilating Alpesh's canal to the proximal popliteal artery, there is widely patent flow with no significant residual stenoses. No extravasation, embolization, or dissection were noted. 4. After crossing the chronic total occlusion in the posterior tibial artery into the plantar vessels the foot and angioplasty repeatedly with a 2.5 x 220 Hussein balloon, we still had sluggish flow through the left posterior tibial artery into the foot suggesting limited microvascular distal outflow. When the medial plantar artery was selected for contrast injection directly, what we found that what we angioplastied all the way to the distal foot is widely patent. It appears that there is no significant outflow into the microvasculature of the foot from the posterior tibial artery distribution. It is unclear at this point is opening outflow all the way to the distal foot will be helpful, but the patient's wounds are in the angiosome of the posterior tibial artery, thus any flow improvement will be helpful for wound healing. REPORT OF OPERATION: The patient was brought to the angiographic suite in stable condition. Her bilateral groins were prepped and draped in a sterile fashion. A timeout was performed. Sedation was administered without complication. Local anesthesia was to the skin and subcutaneous tissue over the right common femoral artery and a microneedle was used to access the artery under ultrasound guidance. A wire was passed through this access under fluoroscopic guidance. A 4 Swiss sheath was placed and flushed with saline. A Glidewire contra catheter was advanced into the distal aorta and in aortoiliofemoral arteriogram was performed. Please see interpretation above. We then went up and over the bifurcation with a Glidewire contra catheter and selected the common femoral artery and superficial femoral artery on the left. A left lower extremity runoff was performed. Please see interpretation above. We then advanced a Glidewire into the distal popliteal artery under fluoroscopic guidance. We attempted to place a 70 cm 6 Swiss sheath over the wire, but due to the narrow apex of the iliac bifurcation, the sheath would not easily passed. Therefore, we exchanged for a short 6 Swiss sheath and flushed the sheath was saline. We then advanced a Everly catheter over the wire into the popliteal vessel. We then exchange the wire for a stiff Amplatz wire and again it a tried to exchange the sheath for 70 cm 6 Swiss sheath. Again however we were unable to advance the catheter over the bifurcation. We then instead placed a 6 x 45 cm destination sheath over the bifurcation with the tip in the left superficial femoral artery. This was flushed with saline. We exchanged the wire for the Glidewire through the Everly catheter and angioplastied the distal SFA Alpesh's canal and the proximal popliteal artery with a 4 x 200 Ellsworth balloon for three-minute inflations. Please see interpretation above. We then advanced a 5 x 150 Innova stent over the wire with the distal and just distal to the popliteal residual stenosis and the proximal and at Alpesh's canal. This was then postdilated with a 4 x 100 Ellsworth balloon and there was widely patent flow with no significant residual stenosis after angioplasty and stenting. No extravasation dissection or embolization was noted. We then advanced the Glidewire the Everly catheter carefully into the posterior tibial artery and we were able to cross all the way to the ankle. Then, through the Everly catheter, we exchanged for an O18 Glidewire advantage which was then advanced into the plantar vessels, and a contrast injection confirmed we were in the true lumen. A 2.5 x 220 Hussein balloon was used angioplasty for three-minute inflations along the length of the vessel. Following this, there was still sluggish flow through the posterior tibial artery which was concerning for ongoing limitations and outflow. We then advanced the wire further into the distal foot and did several additional angioplasties into the distal medial plantar artery for three-minute inflations. Following this, there was improvement inflow and agree down to the ankle, and with selection of the plantar vessels we found that the plantar arteries after angioplasty were widely patent, but there was still sluggish outflow due to microvascular disease. Unfortunately, this is not something that we can improve upon with angioplasty or intervention. Hopefully, opening outflow down to the distal foot will help somewhat with wound healing, but is likely too quickly reocclude if the patient continues smoking. I explained this to her at length. We then exchange this sheath over the wire for short 6 Swiss sheath and a Mynx closure device was deployed at the right common femoral artery with good hemostasis. Pressure was held for 10 minutes and the patient was taken to recovery in stable condition. She tolerated the procedure and the sedation well. ESTIMATED BLOOD LOSS: Approximately 5 mL COMPLICATIONS: None. PLAN: Resume Plavix. Patient will need at least 60 days uninterrupted Plavix after left proximal popliteal artery stent placement. Continue home medications and diet. We discussed with the patient the importance of smoking cessation if there is any chance for her foot to heal and her vascular disease to slow its progression. This is mostly microvascular disease that we are treating repeatedly, and her tobacco dependence is extremely counterproductive to her efforts. There is little hope that we will be able to heal her foot without maintaining her outflow, weight loss, improved diet with increased protein intake, tight glucose control for her diabetes, and immediate smoking cessation. If the patient is unwilling to quit smoking, I fear repetitive efforts will progress to the point of diminishing returns and she will likely end up with amputations. I have made this very clear to her. At this point, she needs to do her part to save her legs. She is still reluctant to discuss smoking cessation although she does report trying to cut back a little bit. This is unfortunate. We will see her back in a week to check her right groin access site. No lifting greater than 5 pounds or strenuous exercise for 48 hours. Okay to remove the dressing and shower tomorrow. We've open to air if no drainage present. She the opportunity to participate in the care of this patient. KRISTIN MICHEL MD Sep 19, 2019 09:41
[2019-09-19 13:00] VITALS: BP 155/75
== END ==
LOC: M IRPRO 06:20
PROVIDERS: ATTEND Surgery Vascular Surgery
DX: I70.213 Atherosclerosis of native arteries of extremities with intermittent claudication, bilateral legs (principal); I70.92 Chronic total occlusion of artery of the extremities; E11.51 Type 2 diabetes mellitus with diabetic peripheral angiopathy without gangrene; F41.9 Anxiety disorder, unspecified; F32.9 Major depressive disorder, single episode, unspecified; E78.00 Pure hypercholesterolemia, unspecified; I51.9 Heart disease, unspecified; F17.210 Nicotine dependence, cigarettes, uncomplicated; Z79.01 Long term (current) use of anticoagulants; Z79.82 Long term (current) use of aspirin; Z79.84 Long term (current) use of oral hypoglycemic drugs; Z79.899 Other long term (current) drug therapy
CPT/HCPCS: 37226; 37228; 75630; 75774; 80048; 85027; 99152; 99153; C1725; C1729; C1760; C1769; C1876; C1887; C1894; J1644; J2250; J3010; Q9967

== ENCOUNTER → 2019-09-26 | Outpatient (CLI) | payer OTHER ==
[~2019-09-26] MED LIST changes: -HumaLOG INSULIN (NovoLOG) PER UNIT SC ONE; -ISOVUE-300 61% 50ML VIAL As Ordered ONE; -LIDOCAINE 1% MDV 20ML VIAL As Ordered ONE; -MIDAZOLAM INJ 2MG/2ML VIAL (J2250 PER 1MG) As Ordered ONE; -fentaNYL 100 MCG/2 ML INJECTION (J3010) As Ordered ONE
[2019-09-26 11:44] LABS: ALBUMIN 2.9 GM/DL (3.2-5.2); ALT/SGPT 18 U/L (12-78); BILIRUBIN,TOTAL 0.2 MG/DL (0.2-1.0); BLOOD UREA NITROGEN 24 MG/DL (7-18); CALCIUM LEVEL 8.8 MG/DL (8.5-10.1); CARBON DIOXIDE LEVEL 30 MEQ/L (21-32); CHLORIDE LEVEL 104 MEQ/L (98-107); CREATININE FOR GFR 0.86 MG/DL (0.55-1.30); GLOMERULAR FILTRATION RATE > 60.0 (>51); GLUCOSE, FASTING 153 MG/DL (70-100); POTASSIUM SERUM 4.6 MEQ/L (3.5-5.1); SODIUM LEVEL 140 MEQ/L (136-145); TOTAL PROTEIN 6.7 GM/DL (6.4-8.2)
[2019-09-26 11:46] LABS: HEMOGLOBIN A1c 11.8 %
== END ==
LOC: M LAB 10:19
PROVIDERS: ATTEND Physician Assistant
DX: I25.10 Atherosclerotic heart disease of native coronary artery without angina pectoris (principal); E11.40 Type 2 diabetes mellitus with diabetic neuropathy, unspecified

== ENCOUNTER → 2019-09-26 | Outpatient (CLI) | payer OTHER ==
[2019-09-26 11:18] LABS: HEMATOCRIT 44.6 % (36.0-47.0); MEAN CORPUSCULAR HEMOGLOBIN 27.6 pg (27.0-33.0); MEAN CORPUSCULAR HGB CONC 31.4 g/dl (32.0-36.5); PLATELET COUNT, AUTOMATED 304 10^3/uL (150-450); RED BLOOD COUNT 5.07 10^6/uL (4.00-5.40)
[2019-09-26 11:40] LABS: BLOOD UREA NITROGEN 25 MG/DL (7-18); CALCIUM LEVEL 8.8 MG/DL (8.5-10.1); CARBON DIOXIDE LEVEL 30 MEQ/L (21-32); CHLORIDE LEVEL 104 MEQ/L (98-107); CREATININE FOR GFR 0.91 MG/DL (0.55-1.30); GLOMERULAR FILTRATION RATE > 60.0 (>51); GLUCOSE, FASTING 154 MG/DL (70-100); POTASSIUM SERUM 4.6 MEQ/L (3.5-5.1); SODIUM LEVEL 139 MEQ/L (136-145)
== END ==
LOC: M LAB 10:16
PROVIDERS: ATTEND Podiatrist Foot & Ankle Surgery
DX: E11.621 Type 2 diabetes mellitus with foot ulcer (principal); L97.419 Non-pressure chronic ulcer of right heel and midfoot with unspecified severity

== ENCOUNTER → 2019-10-08 | Outpatient (CLI) | payer OTHER ==
[~2019-10-08] MED LIST changes: +HYDR-3715 PO
== END ==
LOC: M LABSMTC 09:59
PROVIDERS: ATTEND Anesthesiology
DX: Z01.818 Encounter for other preprocedural examination (principal); Z11.59 Encounter for screening for other viral diseases
CPT/HCPCS: C9803; U0003

== ENCOUNTER 2019-10-11 10:44 | Day surgery (SDC) | payer OTHER ==
[~2019-10-11] VITALS: Ht 162.6 cm; Wt 73.9 kg
[~2019-10-11 10:44] MED LIST changes: -HYDR-3715 PO; +LIDOCAINE 1% MDV 20ML VIAL SQ PRN; +LR 1,000 ML IV ONE; +VANCOMYCIN HCL 1,000 MG, VIAL MATE ADAPTER 1 EACH in D5W 250 ML IV ONE
[2019-10-11] MEDS ORDERED: propofoL 200 MG/20 ML VIAL As Ordered ONE (12:26)
[2019-10-11] MEDS ORDERED: LIDOCAINE 2% 100MG/5ML SDV (FOR ANES.) As Ordered ONE (12:26)
[2019-10-11] MEDS ORDERED: fentaNYL 100 MCG/2 ML INJECTION (J3010) As Ordered ONE (12:27)
[2019-10-11] MEDS ORDERED: MIDAZOLAM INJ 2MG/2ML VIAL (J2250 PER 1MG) As Ordered ONE (12:27)
[2019-10-11] MEDS ORDERED: ONDANSETRON 4MG/2ML VIAL As Ordered ONE (12:28)
[2019-10-11] MEDS ORDERED: BUPIVACAINE HCL 0.5% 10ML VIAL As Ordered ONE (12:59)
[2019-10-11] MEDS ORDERED: LIDOCAINE 1% MDV 20ML VIAL As Ordered ONE (12:59)
[2019-10-11] MEDS ORDERED: HumaLOG INSULIN (NovoLOG) PER UNIT SC ONE ×2 (13:00→14:30)
[2019-10-11] MEDS ORDERED: HYDR-3715 PO (14:01)
[2019-10-11 15:29] VITALS: BP 128/74
--- NOTE | 2019-10-15 14:28 | RO ---
DATE OF PROCEDURE: 10/11/2019 PREPROCEDURE DIAGNOSES: Right foot osteomyelitis and ulceration left foot heel ulceration. POSTPROCEDURE DIAGNOSES: Right foot osteomyelitis and ulceration left foot heel ulceration. PROCEDURE: Left heel excisional wound debridement including subcutaneous tissue as well as right 5th metatarsal head excision. SURGEON: Dr. Antoine Edge FOURCHETTE SEWER: None. ANESTHESIA: Monitored anesthesia care. Preoperative injection of 12 mL of 1:1 mixture of 1% lidocaine plain and 0.5% Marcaine plain. ESTIMATED BLOOD LOSS Minimal. MATERIALS: #3-0 nylon. INJECTABLES: None. COMPLICATIONS: None. SPECIMEN: Right 5th metatarsal head. Shawna Soto is a 54-year-old female who has peripheral vascular disease and resultant ulcerations. She has undergone angiogram and angioplasty from Dr. Michel. She has persistent ulcerations with visible bone on her right foot. She presents today for surgical correction. The patient site and side were identified and marked in the preoperative holding area. Consent was reviewed and obtained. The risks, complications and alternatives to the procedure were explained to the patient in detail and all questions were answered. DESCRIPTION OF PROCEDURE: The patient was brought to the operating room and placed on the operating table in supine position. Monitored anesthesia care was delivered by the anesthesiologist team. Preoperative injection of 12 mL of 1:1 mixture of 1% lidocaine plain and 0.5% Marcaine plain were injected in both feet. Both feet were prepped and draped in the normal sterile fashion. No tourniquets were used during the procedure. Attention was first paid to the left heel. There was an ulceration on the left heel as well as just behind the Achilles tendon with dislocated fibrotic and necrotic tissue. This was sharply debrided using a dermal curette including subcutaneous fat. This is dressed with Xeroform and gauze dressing. Attention was the paid to the right foot. The wound was noted to be lateral to the 5th metatarsal head with desiccated bone exposed. A small incision was made along the metatarsal bone. Dissection was carried to free the bone and the sagittal saw was used to remove it. The metatarsal head was sent for pathology. Some portion of the proximal phalanx base was resected as well using rongeur. Some non-viable tissue was debrided with rongeur and with #15 blade. Following this the site was irrigated with normal saline. Partial closure was performed with #3-0 nylon. The remaining of the wound was packed with Xeroform and gauze dressing. The patient was brought to the postanesthesia care unit (PACU), vital signs stable, neurovascular status intact. She will partial weightbearing. She will followup in our office in 2 days.
== END 2019-10-11 15:50 | disposition home or self-care (01) ==
LOC: M SDC 10:44
PROVIDERS: ATTEND Podiatrist Foot & Ankle Surgery
DX: E10.621 Type 1 diabetes mellitus with foot ulcer (principal); L89.894 Pressure ulcer of other site, stage 4; M86.171 Other acute osteomyelitis, right ankle and foot; I25.10 Atherosclerotic heart disease of native coronary artery without angina pectoris; Z98.61 Coronary angioplasty status; I25.2 Old myocardial infarction; E78.00 Pure hypercholesterolemia, unspecified; F17.218 Nicotine dependence, cigarettes, with other nicotine-induced disorders; F41.9 Anxiety disorder, unspecified; I10 Essential (primary) hypertension; R06.09 Other forms of dyspnea; F32.9 Major depressive disorder, single episode, unspecified; Z79.84 Long term (current) use of oral hypoglycemic drugs; Z79.82 Long term (current) use of aspirin; Z79.4 Long term (current) use of insulin; Z79.899 Other long term (current) drug therapy; Z88.1 Allergy status to other antibiotic agents; Z91.018 Allergy to other foods
CPT/HCPCS: 28122; 88304; 88311; J2250; J2405; J3010; J3370

== ENCOUNTER → 2019-10-30 | Outpatient (CLI) | payer OTHER ==
[~2019-10-30] MED LIST changes: +ACET-897 PO; +ASPI-527 PO; +ATOR80TA59 PO; +BACITAB PO; +BUPR150T3 PO; +CLIN150C14 PO; +ESCI10TA2 PO; +FERR325T18 PO; +HYDR-3715 PO; -LIDOCAINE 1% MDV 20ML VIAL SQ PRN; -LR 1,000 ML IV ONE; +METO10TA2 PO; -NABU-119 PO; +NABU-53 PO; +ONDA-83 PO; +OXYC1TAB23 PO; +PLAV1TAB2 PO; +PREG150C PO; +TRUL0.5I SC; +TRUL10IN SQ; -VANCOMYCIN HCL 1,000 MG, VIAL MATE ADAPTER 1 EACH in D5W 250 ML IV ONE; +ZOFR4TAB16 PO
--- NOTE | 2019-10-30 15:20 | REP ---
BILATERAL LOWER EXTREMITY DUPLEX DOPPLER ARTERIAL ULTRASOUND: Real-time sonographic evaluation and duplex Doppler interrogation of bilateral lower extremity arterial systems is performed. NATALIE right 0.73 and left 0.80. There is significant plaquing of the right common femoral artery extending into the bifurcation. There is mild stenosis of the right common femoral artery. The stent in the right superficial femoral artery begins about 4 cm distal to its origin and extends through the right popliteal artery. This is patent with no significant stenosis. Normal flow velocities are seen in the calf arteries with moderate diffuse plaque. The right lower extremity arterial system demonstrates diffuse monophasic waveforms. Moderate to mildly severe plaquing and narrowing is seen in the left common femoral artery extending into the bifurcation with mild stenosis of the profunda and proximal superficial femoral arteries. There is significant diffuse plaque throughout the left superficial femoral artery. Diffuse biphasic waveforms are noted with monophasic waveforms in the distal superficial femoral artery, proximal anterior tibial artery and distal anterior tibial artery. The distal posterior tibial artery is occluded. Patent stent is noted of the distal left superficial femoral artery and popliteal artery. Right Peak Left Peak Systolic Velocity Systolic velocity Common femoral artery 187 cm/s 210 cm/s Profunda 51 cm/s 281 cm/s Proximal SFA 113 cm/s 187 cm/s Mid SFA 44 cm/s 121 cm/s Distal SFA 59 cm/s 78 cm/s Popliteal 58 cm/s 113 cm/s Proximal THO 55 cm/s 63 cm/s Tibial peroneal trunk 46 cm/s 38 cm/s Proximal TRANSPORTATION ENGINEERING TECHNICIAN 37 cm/s 42 cm/s Distal TRANSPORTATION ENGINEERING TECHNICIAN 33 cm/s occluded Distal THO 38 cm/s 20 cm/s Electronically Signed by Uche Sweet MD 10/31/2019 11:15 P
== END ==
LOC: M RAD 09:57
PROVIDERS: ATTEND Physician Assistant
DX: I70.239 Atherosclerosis of native arteries of right leg with ulceration of unspecified site (principal); I70.244 Atherosclerosis of native arteries of left leg with ulceration of heel and midfoot

== ENCOUNTER 2019-11-05 01:55 | Emergency (ER) | payer OTHER ==
[~2019-11-05] VITALS: Ht 162.6 cm; Wt 73.6 kg
[~2019-11-05 01:55] MED LIST changes: -ACET-897 PO; -ASPI-527 PO; -ATOR80TA59 PO; -BACITAB PO; -BUPR150T3 PO; -CLIN150C14 PO; -ESCI10TA2 PO; -FERR325T18 PO; -METO10TA2 PO; -ONDA-83 PO; -OXYC1TAB23 PO; -PLAV1TAB2 PO; -PREG150C PO; -TRUL0.5I SC; -TRUL10IN SQ; -ZOFR4TAB16 PO
[2019-11-05] MEDS ORDERED: ASPIRIN 325 MG TAB PO ONE (02:30)
[2019-11-05 02:59] LABS: BASO # 0.1 10^3/uL (0.0-0.2); BASO % 0.6 % (0.0-1.0); EOS # 0.3 10^3/uL (0.0-0.5); EOS % 2.4 % (0.0-3.0); HEMATOCRIT 41.9 % (36.0-47.0); HEMOGLOBIN 12.9 g/dl (12.0-15.5); LYMPH % 18.3 % (24.0-44.0); MEAN CORPUSCULAR HEMOGLOBIN 27.2 pg (27.0-33.0); MEAN CORPUSCULAR HGB CONC 30.8 g/dl (32.0-36.5); MEAN CORPUSCULAR VOLUME 88.2 fl (80.0-96.0); MONO # 0.7 10^3/uL (0.0-0.8); MONO % 6.4 % (0.0-5.0); NEUTROPHILS # 7.8 10^3/uL (1.5-8.5); NEUTROPHILS % 71.8 % (36.0-66.0); PLATELET COUNT, AUTOMATED 287 10^3/uL (150-450); RED BLOOD COUNT 4.75 10^6/uL (4.00-5.40); WHITE BLOOD COUNT 10.9 10^3/uL (4.0-10.0)
[2019-11-05 03:20] LABS: PROTHROMBIN TIME 12.9 SECONDS (11.8-14.0)
[2019-11-05 03:21] LABS: PARTIAL THROMBOPLASTIN TIME 23.9 SECONDS (25.0-38.4)
[2019-11-05 03:40] LABS: BLOOD UREA NITROGEN 20 MG/DL (7-18); CALCIUM LEVEL 8.4 MG/DL (8.5-10.1); CARBON DIOXIDE LEVEL 28 MEQ/L (21-32); CHLORIDE LEVEL 104 MEQ/L (98-107); CK-MB VALUE MASS 1.5 NG/ML (<3.6); CPK CREATINE PHOSPHOKINASE 45 U/L (26-192); GLOMERULAR FILTRATION RATE 55.5 (>51); GLUCOSE, FASTING 549 MG/DL (70-100); LIPASE 174 U/L (73-393); MB/CK RELATIVE INDEX 3.33 (< OR =4); POTASSIUM SERUM 4.8 MEQ/L (3.5-5.1); SODIUM LEVEL 140 MEQ/L (136-145); TROPONIN I < 0.02 NG/ML (< 0.10)
[2019-11-05] MEDS ORDERED: NS 1,000 ML IV ONE (04:00)
[2019-11-05] MEDS ORDERED: KETOROLAC 30 MG/ML 1ML VIAL IV ONE (04:00)
[2019-11-05] MEDS ORDERED: HumuLIN R (REGULAR) INSULIN (NovoLIN R) **100U/ML** PER UNIT IV ONE (04:00)
[2019-11-05 06:15] VITALS: BP 152/81
--- NOTE | 2019-11-05 08:52 | ECGEPIP ---
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
--- NOTE | 2019-11-05 10:50 | REP ---
REASON: Chest pain. COMPARISON: 02/02/2019 The technique utilized in obtaining the radiograph has magnified the cardiac silhouette and accentuated the interstitial markings. There is mild cardiomegaly accentuated by technique. Note is again made of previous median sternotomy. There is no significant change in the appearance of the lung snowden. No acute patchy parenchymal opacities or pleural effusions have developed. There is no change in the osseous structures. IMPRESSION: No acute cardiopulmonary disease. Mild cardiomegaly. Electronically Signed by Wilber Garcia DO 11/05/2019 11:03 A
== END 2019-11-05 06:20 | disposition home or self-care (01) ==
LOC: M ED 01:55
DX: E11.65 Type 2 diabetes mellitus with hyperglycemia (principal); R07.89 Other chest pain; I11.9 Hypertensive heart disease without heart failure; R94.31 Abnormal electrocardiogram [ECG] [EKG]; E78.5 Hyperlipidemia, unspecified; J44.9 Chronic obstructive pulmonary disease, unspecified; F17.210 Nicotine dependence, cigarettes, uncomplicated; Z88.8 Allergy status to other drugs, medicaments and biological substances; Z91.018 Allergy to other foods; Z79.51 Long term (current) use of inhaled steroids; Z79.899 Other long term (current) drug therapy; Z79.4 Long term (current) use of insulin
CPT/HCPCS: 71045; 80048; 82550; 82553; 83690; 85025; 85610; 85730; 93005; 96374; 96375; 99285; J1885

== ENCOUNTER → 2019-11-07 | Outpatient (CLI) | payer OTHER ==
[~2019-11-07] MED LIST changes: +ACET-897 PO; +ASPI-527 PO; +ATOR80TA59 PO; +BACITAB PO; +BUPR150T3 PO; +CLIN150C14 PO; +DEXTROSE 50% 50 ML SYRINGE IV PRN; +ESCI10TA2 PO; +FERR325T18 PO; +HumaLOG INSULIN (NovoLOG) PER UNIT SC ONE; +ISOVUE-300 61% 50ML VIAL As Ordered ONE; +LIDOCAINE 1% MDV 20ML VIAL As Ordered ONE; +METO10TA2 PO; +MIDAZOLAM INJ 2MG/2ML VIAL (J2250 PER 1MG) As Ordered ONE; +ONDA-83 PO; +OXYC1TAB23 PO; +PLAV1TAB2 PO; +PREG150C PO; +TRUL0.5I SC; +TRUL10IN SQ; +ZOFR4TAB16 PO; +fentaNYL 100 MCG/2 ML INJECTION (J3010) As Ordered ONE
--- NOTE | 2019-11-07 09:57 | ROOPDOC ---
[facility] Report Of Operation Report of Operation DATE OF PROCEDURE: 11/07/19 PREPROCEDURE DIAGNOSES: Atherosclerosis in the [place] arteries with right lower extremity claudication and nonhealing wound right foot POSTPROCEDURE DIAGNOSES: Same PROCEDURE: 1. Ultrasound-guided access left common femoral artery 2. Aortoiliofemoral arteriogram and oblique views of the right iliac artery 3. Selection right common femoral artery and superficial femoral artery with right lower extremity runoff 4. Angioplasty right common iliac artery and proximal external iliac artery with 7 x 100 [place] balloon 5. Stenting right common iliac artery and proximal external iliac artery with 7 x 57 express balloon expandable stent 6. Angioplasty proximal right superficial femoral artery with 5 x 100 [place] balloon 7. Angioplasty right popliteal artery and distal superficial femoral artery with 5 x 100 [place] balloon 8. Cross occlusion right posterior tibial artery and selection distal right posterior tibial artery and arteriogram with runoff into the foot 9. Angioplasty right posterior tibial artery with 2.5 x 220 [place] balloon 10. Completion arteriograms 11. Mynx closure left common femoral artery SURGEON: Kristin Michel MD ANESTHESIA: Local anesthesia 8 mL lidocaine. Moderate intravenous conscious sedation was supervised by Dr. Michel. The patient was independently monitored by registered nurse and signed to the Department of radiology is an automated blood pressure, EKG, and pulse oximetry. The detailed sedation record is permanently stored in the hospital information system. The following is a brief sedation record: Start time 07:52, stop time 09:09, Versed 1 mg IV, fentanyl 50 g IV, heparin 5000 units IV. CONTRAST: 53 mL Isovue 300 INDICATION FOR PROCEDURE: This is a very pleasant 54-year-old patient with a long-standing history of tobacco abuse who has had recurrent bilateral lower extremity disease and nonhealing wounds. There are 3 main reasons her wounds will not heal. The first, is that she is a heavy smoker and has yet to make any real efforts to quit or even significantly cut back on her smoking. The second, she is a poorly controlled diabetic. The third is that the patient has severe arterial insufficiency, made worse from a combination of diabetes and smoking. We have been aggressively encouraging her to quit smoking. The patient today says she did finally start to take Chantix, and we'll see if this will help. We are hopeful she will quit as we are reaching the point of diminishing returns with frequent procedures to try to maintain patency in her lower extremities. She has a left heel wound, and a right foot wound, and so far both of these have been a challenge for our podiatry colleagues to manage and help heal. Today, we bring the patient back for another attempt to improve blood flow in the right lower extremity. We initially did and arteriogram on the right lower extremity in April of this year, and another in July of this year. In April, we stented the proximal common iliac artery, to angioplasty of the superficial femoral artery, and angioplasty of an occlusion of the posterior tibial artery on the right. In July, what we had opened in the superficial femoral artery with angioplasty had nearly occluded and we placed stents extending from the proximal popliteal artery all the way through the SFA. At that time, the iliac and posterior tibial vessels were still patent. Now the patient comes back for another intervention to see if we can improve flow and help her foot to heal. Risks benefits and alternatives were explained and she is agreeable to proceed. Informed consent was obtained. INTERPRETATION: 1. The distal aorta is patent and there is patency in the proximal common iliac artery existing stent, but distal to this, there is marked stenosis in the mid distal common iliac artery and proximal external iliac artery. There is flow into the hypogastric artery. The left common iliac artery stent is patent. 2. The right common femoral artery is patent with good flow into the profunda which is widely patent, but the proximal SFA shows some mild stenosis for 7 cm where there is no stent present. Distal to this, there is widely patent inflow through the SFA stents without signs of restenosis. However, at the popliteal artery, there is in-stent stenosis noted. Distal to the stent, there is a focal stenosis but otherwise the mid and distal popliteal artery are widely patent. There is two-vessel runoff through the anterior tibial artery and peroneal artery. They have mild disease, but no flow-limiting stenoses. The anterior tibial artery runs off to the distal foot through the dorsal pedis artery Her posterior tibial artery is intermittently occluded and fills distally from collaterals from the peroneal artery and the anterior tibial artery. 3. After angioplasty of the right common iliac artery and external iliac artery, there is a marked improvement in flow but a flow-limiting dissection is also noted. No extravasation noted. After stenting and repeating angioplasty in the distal external iliac artery, there is widely patent flow through the right iliac system with no residual stenosis, no dissection, no extravasation. 4. After angioplasty of the proximal superficial femoral artery, there is widely patent flow with no dissection, no embolization, no extravasation noted. 5. After angioplasty of the proximal popliteal artery stent, there is widely patent flow with no dissection, no embolization, no extravasation noted. 6. After crossing the left posterior tibial artery and confirming we were in the true lumen with a distal injection of the posterior tibial artery just above the plantar vessels, we were able to successfully angioplasty the entire length of the posterior tibial artery. There is widely patent flow with no dissection, no embolization, no extravasation noted and no flow-limiting stenoses noted. REPORT OF OPERATION: The patient was brought to the angiographic suite in stable condition. Her bilateral groins were prepped and draped in a sterile fashion. A timeout was performed. Sedation was administered without complication. Local anesthesia was administered to the skin and subcutaneous tissue of the left groin and a microneedle was used to access the left common femoral artery under ultrasound guidance. A wire was passed through this access and the needle was removed and a 4 [place] sheath was placed and flushed with saline. A Glidewire and flushing catheter were advanced into the distal aorta and aortoiliofemoral arteriograms were performed. It was challenging to navigate the wire over the bifurcation into the right iliac system due to heavy stenosis, but we were eventually able to navigate the wire up and over and the catheter into the right iliacs and oblique views were taken of the right iliac vessels. Please interpretation above. We then advanced the wire into the common femoral artery along with the catheter, and a right lower extremity arteriogram was performed. Eventually, we were able to navigate the wire around the profunda into the superficial femoral artery. We then exchange the sheath for a 7 [place] Citizen 45 cm sheath and advanced the tip of the sheath to the aortic bifurcation and the sheath was flushed with saline. We then angioplasty the right common and external iliac artery with a 7 x 100 [place] balloon. Following this, there was improvement in flow, but also a flow-limiting dissection at the area of heavy is stenosis near the bifurcation into the external iliac and hypogastric. We therefore selected a 7 x 57 express balloon expandable stent and deployed this with a 1 cm overlap on the existing common iliac artery proximal stent. We also utilizes balloon to angioplasty distal to the stent in the external iliac artery. Following this there was widely patent flow through the iliac arteries. Next, we advanced the tip of the sheath into the common femoral artery. The sheath was flushed with saline. We advanced a Glidewire down through the SFA and the popliteal artery to the distal popliteal artery on the right. We angioplasty the proximal SFA for three-minute inflations with a 5 x 100 [place] balloon. Following this, there is widely patent flow through the SFA with no dissection or extravasation or embolization noted. We then did of three-minute inflations of the popliteal artery within the stent to treat the in-stent restenosis. After three-minute inflations, there was widely patent flow through the popliteal artery as well. We then utilized an O18 guidewire advantage to cross the posterior tibial artery occlusion. This took about a time but eventually we were able to cross distally. We placed the balloon over the wire and then did an injection through the balloon to confirm we were in the true lumen of the vessel. We then did multiple three-minute angioplasties along the length of the vessel until we had widely patent 3 vessel runoff to the distal foot. Following this, we exchange the wire for an O35 wire again and then exchange sheath over the wire for short 7 [place] sheath and flushed the sheath was saline. Mynx closure device was deployed with good hemostasis. Pressure was held for 5 minutes and sterile dressings were applied. The patient tolerated the procedure and the sedation well. ESTIMATED BLOOD LOSS: Approximately 5 mL. COMPLICATIONS: None. PLAN: It is okay for the patient to resume home diet medications. She should resume her Plavix tomorrow morning. No strenuous exercise or lifting greater than 5 pounds for 48 hours. The patient needs to quit smoking. This is imperative for long-term limb preservation. We have again reiterated this with her extensively today. We will see her back in 1 week to check her groin access site. We appreciate the opportunity to participate in the care of this patient. KRISTIN MICHEL MD Nov 07, 2019 09:57
[2019-11-07 12:45] VITALS: BP 178/84
== END ==
LOC: M IRPRO 06:31
PROVIDERS: ATTEND Surgery Vascular Surgery
DX: I70.211 Atherosclerosis of native arteries of extremities with intermittent claudication, right leg (principal); I70.235 Atherosclerosis of native arteries of right leg with ulceration of other part of foot; I70.92 Chronic total occlusion of artery of the extremities; E11.51 Type 2 diabetes mellitus with diabetic peripheral angiopathy without gangrene; F17.210 Nicotine dependence, cigarettes, uncomplicated; L97.519 Non-pressure chronic ulcer of other part of right foot with unspecified severity; L97.429 Non-pressure chronic ulcer of left heel and midfoot with unspecified severity
CPT/HCPCS: 37221; 37223; 37224; 37228; 75710; 99152; 99153; C1725; C1729; C1760; C1769; C1876; C1887; C1894; J1644; J2250; J3010; Q9967

== ENCOUNTER 2019-11-08 12:28 | Emergency (ER) | payer OTHER ==
[~2019-11-08] VITALS: Ht 162.6 cm; Wt 72.7 kg
[~2019-11-08 12:28] MED LIST changes: -ACET-897 PO; -ASPI-527 PO; -ATOR80TA59 PO; -BACITAB PO; -BUPR150T3 PO; -CLIN150C14 PO; -DEXTROSE 50% 50 ML SYRINGE IV PRN; -ESCI10TA2 PO; -FERR325T18 PO; -HumaLOG INSULIN (NovoLOG) PER UNIT SC ONE; -ISOVUE-300 61% 50ML VIAL As Ordered ONE; -LIDOCAINE 1% MDV 20ML VIAL As Ordered ONE; -METO10TA2 PO; -MIDAZOLAM INJ 2MG/2ML VIAL (J2250 PER 1MG) As Ordered ONE; -ONDA-83 PO; -OXYC1TAB23 PO; -PLAV1TAB2 PO; -PREG150C PO; -TRUL0.5I SC; -TRUL10IN SQ; -ZOFR4TAB16 PO; -fentaNYL 100 MCG/2 ML INJECTION (J3010) As Ordered ONE
[2019-11-08 13:26] LABS: VENOUS BASE EXCESS 3.6 (-2.0-2.0); VENOUS HCO3 30.7 MEQ/L (23.0-27.0); VENOUS O2 SATURATION 69.2 % (60.0-80.0); VENOUS PARTIAL PRESSURE CO2 56.7 mmHg (38.0-50.0); VENOUS PARTIAL PRESSURE O2 36.1 mmHg (30.0-50.0); VENOUS PH 7.352 UNITS (7.330-7.430); VENOUS TOTAL CO2 32.5 MEQ/L (24.0-28.0)
[2019-11-08] MEDS ORDERED: NALOXONE 2MG/2ML SYRINGE (J2310 PER 1MG) IV STA (13:33)
[2019-11-08 13:35] LABS: BASO # 0.1 10^3/uL (0.0-0.2); BASO % 0.6 % (0.0-1.0); EOS # 0.4 10^3/uL (0.0-0.5); EOS % 3.4 % (0.0-3.0); HEMATOCRIT 43.9 % (36.0-47.0); LYMPH # 1.9 10^3/uL (1.5-5.0); LYMPH % 17.4 % (24.0-44.0); MEAN CORPUSCULAR HEMOGLOBIN 27.4 pg (27.0-33.0); MEAN CORPUSCULAR HGB CONC 31.9 g/dl (32.0-36.5); MEAN CORPUSCULAR VOLUME 85.9 fl (80.0-96.0); MONO # 0.7 10^3/uL (0.0-0.8); MONO % 6.3 % (0.0-5.0); NEUTROPHILS # 7.8 10^3/uL (1.5-8.5); NEUTROPHILS % 71.9 % (36.0-66.0); PLATELET COUNT, AUTOMATED 281 10^3/uL (150-450); RED BLOOD COUNT 5.11 10^6/uL (4.00-5.40); WHITE BLOOD COUNT 10.9 10^3/uL (4.0-10.0)
[2019-11-08] MEDS ORDERED: NS 1,000 ML IV ONE (13:45)
[2019-11-08 13:46] LABS: INR 1.02; PROTHROMBIN TIME 13.1 SECONDS (11.8-14.0)
[2019-11-08 14:02] LABS: BLOOD UREA NITROGEN 15 MG/DL (7-18); CALCIUM LEVEL 9.3 MG/DL (8.5-10.1); CARBON DIOXIDE LEVEL 31 MEQ/L (21-32); CHLORIDE LEVEL 105 MEQ/L (98-107); CPK CREATINE PHOSPHOKINASE 26 U/L (26-192); CREATININE FOR GFR 0.81 MG/DL (0.55-1.30); GLOMERULAR FILTRATION RATE > 60.0 (>51); GLUCOSE, FASTING 169 MG/DL (70-100); MB/CK RELATIVE INDEX 3.85 (< OR =4); POTASSIUM SERUM 3.9 MEQ/L (3.5-5.1); SODIUM LEVEL 142 MEQ/L (136-145); TROPONIN I < 0.02 NG/ML (< 0.10)
--- NOTE | 2019-11-08 14:25 | REP ---
Clinical: Altered mental status . Comparison: 11/05/2019 . Findings: The mediastinum and cardiac silhouette are stable and within normal limits for portable technique. Evidence of prior sternotomy and CABG again noted. The lung snowden are clear without acute consolidation, effusion, or pneumothorax. Skeletal structures are intact. Impression: No acute cardiopulmonary process appreciated. Electronically Signed by James Ya MD 11/08/2019 02:16 P
[2019-11-08 15:16] VITALS: BP 132/68
--- NOTE | 2019-11-09 08:01 | ECGEPIP ---
[facility] - ED Test Date: 2019-11-08 Pat Name: TATIANNA LAMB Department: Room: - Gender: Female Social Media Marketing Specialist: CHACHO : 1965 Requested By: Kartik Huddleston Order Number: [id number] Reading MD: Rena Lopez Measurements Intervals [place] Rate: 88 P: 56 [place]: 175 QRS: 9 QRSD: 88 T: 119 QT: 345 QTc: 418 Interpretive Statements SINUS RHYTHM ST DEVIATION AND MODERATE T-WAVE ABNORMALITY, CONSIDER ISCHEMIA SEPTAL ID, PROBABLY OLD Electronically Signed on 11-09-2019 8:01:11 EDT by Rena Lopez
== END 2019-11-08 16:50 | disposition left against medical advice (07) ==
LOC: EDBD 12:28 → M ED 12:28
DX: R41.82 Altered mental status, unspecified (principal); F19.129 Other psychoactive substance abuse with intoxication, unspecified; Z53.9 Procedure and treatment not carried out, unspecified reason; R94.31 Abnormal electrocardiogram [ECG] [EKG]; E11.9 Type 2 diabetes mellitus without complications; I10 Essential (primary) hypertension; I25.10 Atherosclerotic heart disease of native coronary artery without angina pectoris; J44.9 Chronic obstructive pulmonary disease, unspecified; F17.210 Nicotine dependence, cigarettes, uncomplicated; Z79.51 Long term (current) use of inhaled steroids; Z79.899 Other long term (current) drug therapy; Z79.4 Long term (current) use of insulin
CPT/HCPCS: 71045; 80047; 80048; 82550; 82553; 82803; 83605; 84443; 85025; 85610; 93005; 93041; 94760; 96361; 96374; 99285; J2310

== ENCOUNTER → 2019-12-04 | Emergency (ER) | payer OTHER ==
[~2019-12-04] MED LIST changes: +ACET-897 PO; +ASPI-527 PO; +ATOR80TA59 PO; +BACITAB PO; +BUPR150T3 PO; +CLIN150C14 PO; +ESCI10TA2 PO; +FERR325T18 PO; +METO10TA2 PO; +NORCO, ANEXSIA 5/325MG TABLET (HYDROcodone/ACETAMINOPHEN) As Ordered ONE; +NORCO, ANEXSIA 5/325MG TABLET (HYDROcodone/ACETAMINOPHEN) ONE; +ONDA-83 PO; +OXYC1TAB23 PO; +PLAV1TAB2 PO; +PREG150C PO; +TRUL0.5I SC; +TRUL10IN SQ; +ZOFR4TAB16 PO
--- NOTE | 2020-01-03 15:28 | ECGEPIP ---
SINUS RHYTHM POSSIBLE ANTERIOR MYOCARDIAL INFARCTION, OF INDETERMINATE AGE ABNORMAL ECG NONSPECIFIC ST & T-WAVE ABNORMALITY SEE SCANNED DOWNTIME REPORT MTDD
[2020-01-18 11:54] LABS: BASO # 0.1 10^3/uL (0.0-0.2); BASO % 0.7 % (0.0-1.0); EOS # 0.4 10^3/uL (0.0-0.5); HEMATOCRIT 41.7 % (36.0-47.0); HEMOGLOBIN 13.5 g/dl (12.0-15.5); LYMPH # 2.2 10^3/uL (1.5-5.0); LYMPH % 18.3 % (24.0-44.0); MEAN CORPUSCULAR HEMOGLOBIN 27.4 pg (27.0-33.0); MEAN CORPUSCULAR HGB CONC 32.4 g/dl (32.0-36.5); MEAN CORPUSCULAR VOLUME 84.8 fl (80.0-96.0); MONO # 0.6 10^3/uL (0.0-0.8); MONO % 5.3 % (0.0-5.0); NEUTROPHILS # 8.8 10^3/uL (1.5-8.5); NEUTROPHILS % 72.1 % (36.0-66.0); PLATELET COUNT, AUTOMATED 299 10^3/uL (150-450); RED BLOOD COUNT 4.92 10^6/uL (4.00-5.40); WHITE BLOOD COUNT 12.1 10^3/uL (4.0-10.0)
[2020-02-25 16:16] LABS: CK-MB VALUE MASS 1.6 NG/ML (<3.6); CPK CREATINE PHOSPHOKINASE 31 U/L (26-192); FREE T3 2.3 PG/ML (2.2-4.0); MB/CK RELATIVE INDEX 5.16 (< OR =4); TOTAL T3 88.7 NG/DL (60.0-181.0); TROPONIN I < 0.02 NG/ML (< 0.10)
== END | disposition home or self-care (01) ==
LOC: M ED 11:20
DX: G89.29 Other chronic pain (principal); R07.89 Other chest pain; R94.31 Abnormal electrocardiogram [ECG] [EKG]; I25.10 Atherosclerotic heart disease of native coronary artery without angina pectoris; E11.9 Type 2 diabetes mellitus without complications; E78.5 Hyperlipidemia, unspecified; F17.200 Nicotine dependence, unspecified, uncomplicated; Z95.1 Presence of aortocoronary bypass graft; Z91.018 Allergy to other foods; Z88.8 Allergy status to other drugs, medicaments and biological substances

== ENCOUNTER → 2019-12-15 | Outpatient (REF) | payer OTHER ==
[~2019-12-15] MED LIST changes: -NORCO, ANEXSIA 5/325MG TABLET (HYDROcodone/ACETAMINOPHEN) As Ordered ONE; -NORCO, ANEXSIA 5/325MG TABLET (HYDROcodone/ACETAMINOPHEN) ONE
== END ==
LOC: M LAB REF 10:14
PROVIDERS: ATTEND Surgery
DX: M86.171 Other acute osteomyelitis, right ankle and foot (principal)

== ENCOUNTER → 2019-12-27 | Outpatient (CLI) | payer OTHER, MEDICAID ==
[2019-12-27 15:25] LABS: HEMATOCRIT 43.5 % (36.0-47.0); HEMOGLOBIN 13.9 g/dl (12.0-15.5); MEAN CORPUSCULAR HEMOGLOBIN 26.9 pg (27.0-33.0); MEAN CORPUSCULAR VOLUME 84.1 fl (80.0-96.0); PLATELET COUNT, AUTOMATED 337 10^3/uL (150-450); RED BLOOD COUNT 5.17 10^6/uL (4.00-5.40); WHITE BLOOD COUNT 13.7 10^3/uL (4.0-10.0)
[2019-12-27 15:39] LABS: CALCIUM LEVEL 8.7 MG/DL (8.5-10.1); CREATININE FOR GFR 1.87 MG/DL (0.55-1.30); GLOMERULAR FILTRATION RATE 30.1 (>51); POTASSIUM SERUM 4.3 MEQ/L (3.5-5.1)
== END ==
LOC: M LAB 13:21
PROVIDERS: ATTEND Podiatrist Foot & Ankle Surgery
DX: Z01.818 Encounter for other preprocedural examination (principal)

== ENCOUNTER → 2019-12-27 | Outpatient (CLI) | payer OTHER, MEDICAID, BC ==
[2019-12-27 15:31] LABS: BASO # 0.1 10^3/uL (0.0-0.2); BASO % 0.6 % (0.0-1.0); EOS # 0.3 10^3/uL (0.0-0.5); EOS % 1.9 % (0.0-3.0); HEMATOCRIT 43.7 % (36.0-47.0); LYMPH # 3.3 10^3/uL (1.5-5.0); MEAN CORPUSCULAR VOLUME 84.2 fl (80.0-96.0); MONO # 0.7 10^3/uL (0.0-0.8); MONO % 5.1 % (0.0-5.0); NEUTROPHILS # 9.4 10^3/uL (1.5-8.5); NEUTROPHILS % 67.6 % (36.0-66.0); PLATELET COUNT, AUTOMATED 310 10^3/uL (150-450); RED BLOOD COUNT 5.19 10^6/uL (4.00-5.40); WHITE BLOOD COUNT 13.9 10^3/uL (4.0-10.0)
[2019-12-27 15:43] LABS: ALBUMIN 2.9 GM/DL (3.2-5.2); BILIRUBIN,TOTAL 0.2 MG/DL (0.2-1.0); CALCIUM LEVEL 8.7 MG/DL (8.5-10.1); CHOLESTEROL RISK RATIO 4.076 (<5); CREATININE FOR GFR 1.92 MG/DL (0.55-1.30); GLOMERULAR FILTRATION RATE 29.2 (>51); POTASSIUM SERUM 4.3 MEQ/L (3.5-5.1)
[2019-12-27 15:48] LABS: MALB URINE SIEMENS 22.2 MG/L; MAU/CREAT RATIO 11.3 MCG/MG (0.0-30.0)
[2019-12-27 15:49] LABS: HEMOGLOBIN A1c 9.1 %
== END ==
LOC: M LAB 13:17
PROVIDERS: ATTEND Physician Assistant
DX: E11.40 Type 2 diabetes mellitus with diabetic neuropathy, unspecified (principal)

== ENCOUNTER 2019-12-28 09:17 | Emergency (ER) | payer MEDICAID, OTHER ==
[~2019-12-28] VITALS: Ht 162.6 cm; Wt 73.6 kg
[~2019-12-28 09:17] MED LIST changes: -ACET-897 PO; -ASPI-527 PO; -ATOR80TA59 PO; -BACITAB PO; -BUPR150T3 PO; -CLIN150C14 PO; -ESCI10TA2 PO; -FERR325T18 PO; -METO10TA2 PO; -ONDA-83 PO; -OXYC1TAB23 PO; -PLAV1TAB2 PO; -PREG150C PO; -TRUL0.5I SC; -TRUL10IN SQ; -ZOFR4TAB16 PO
[2019-12-28] MEDS ORDERED: DOXY100C37 PO (09:39)
[2019-12-28] MEDS ORDERED: PLAV1TAB2 PO (10:32)
[2019-12-28] MEDS ORDERED: TRUL10IN SQ (10:32)
[2019-12-28] MEDS ORDERED: ACET-897 PO (10:32)
[2019-12-28] MEDS ORDERED: METO10TA2 PO (10:32)
[2019-12-28] MEDS ORDERED: ATOR80TA59 PO (10:32)
[2019-12-28] MEDS ORDERED: HYDR-3713 PO (10:32)
[2019-12-28] MEDS ORDERED: PREG150C PO (10:32)
[2019-12-28] MEDS ORDERED: BUPR150T3 PO (10:32)
[2019-12-28] MEDS ORDERED: ASPI-527 PO (10:32)
[2019-12-28] MEDS ORDERED: FERR325T18 PO (10:32)
[2019-12-28 10:50] VITALS: BP 137/71
== END 2019-12-28 10:53 | disposition home or self-care (01) ==
LOC: M ED 09:17
DX: N18.3 Chronic kidney disease, stage 3 (moderate) (principal); T38.3X5A Adverse effect of insulin and oral hypoglycemic [antidiabetic] drugs, initial encounter; Z79.01 Long term (current) use of anticoagulants; I25.10 Atherosclerotic heart disease of native coronary artery without angina pectoris; E11.9 Type 2 diabetes mellitus without complications; E78.5 Hyperlipidemia, unspecified; I10 Essential (primary) hypertension; J44.9 Chronic obstructive pulmonary disease, unspecified; F17.200 Nicotine dependence, unspecified, uncomplicated; Z95.1 Presence of aortocoronary bypass graft; Z91.018 Allergy to other foods; Z88.8 Allergy status to other drugs, medicaments and biological substances; Z79.51 Long term (current) use of inhaled steroids; Z79.899 Other long term (current) drug therapy; Z79.4 Long term (current) use of insulin

== ENCOUNTER → 2019-12-29 | Outpatient (CLI) | payer BC, MEDICAID, OTHER ==
[~2019-12-29] MED LIST changes: +ACET-897 PO; +ASPI-527 PO; +ATOR80TA59 PO; +BACITAB PO; +BUPR150T3 PO; +CLIN150C14 PO; +ESCI10TA2 PO; +FERR325T18 PO; +METO10TA2 PO; +ONDA-83 PO; +OXYC1TAB23 PO; +PLAV1TAB2 PO; +PREG150C PO; +TRUL0.5I SC; +TRUL10IN SQ; +ZOFR4TAB16 PO
== END ==
LOC: M LABSMTC 11:31
PROVIDERS: ATTEND Anesthesiology
DX: Z11.59 Encounter for screening for other viral diseases (principal)
CPT/HCPCS: C9803; U0003

== ENCOUNTER 2019-12-30 10:44 | Inpatient (IN) | payer BC, MEDICAID, OTHER ==
[~2019-12-30] VITALS: Ht 162.6 cm; Wt 72.0 kg
[~2019-12-30 10:44] MED LIST changes: -BACITAB PO; -CLIN150C14 PO; +DOXYCYCLINE HYCLATE 100MG TABLET PO SCH; -ESCI10TA2 PO; -ONDA-83 PO; -OXYC1TAB23 PO; -TRUL0.5I SC; -ZOFR4TAB16 PO
[2019-12-30] MEDS ORDERED: NS 1,000 ML IV ONE ×2 (11:00→12:30)
[2019-12-30] MEDS ORDERED: ONDA-83 PO (11:28)
[2019-12-30 11:34] LABS: VENOUS HCO3 25.7 MEQ/L (23.0-27.0); VENOUS O2 SATURATION 88.1 % (60.0-80.0); VENOUS PARTIAL PRESSURE O2 55.8 mmHg (30.0-50.0); VENOUS PH 7.328 UNITS (7.330-7.430); VENOUS STANDARD HCO3 23.5 MEQ/L; VENOUS TOTAL CO2 27.2 MEQ/L (24.0-28.0)
[2019-12-30 11:40] LABS: BASO # 0.1 10^3/uL (0.0-0.2); BASO % 0.6 % (0.0-1.0); EOS % 0.3 % (0.0-3.0); HEMATOCRIT 45.4 % (36.0-47.0); HEMOGLOBIN 13.9 g/dl (12.0-15.5); LYMPH # 1.3 10^3/uL (1.5-5.0); LYMPH % 10.2 % (24.0-44.0); MEAN CORPUSCULAR HEMOGLOBIN 26.7 pg (27.0-33.0); MEAN CORPUSCULAR HGB CONC 30.6 g/dl (32.0-36.5); MEAN CORPUSCULAR VOLUME 87.1 fl (80.0-96.0); MONO # 0.4 10^3/uL (0.0-0.8); MONO % 3.5 % (0.0-5.0); NEUTROPHILS # 10.7 10^3/uL (1.5-8.5); NEUTROPHILS % 85.1 % (36.0-66.0); PLATELET COUNT, AUTOMATED 375 10^3/uL (150-450); RED BLOOD COUNT 5.21 10^6/uL (4.00-5.40); WHITE BLOOD COUNT 12.6 10^3/uL (4.0-10.0)
[2019-12-30 12:01] LABS: ERYTHROCYTE SEDIMENTATION RATE 32 mm/hr (0-30)
[2019-12-30 12:18] LABS: ALBUMIN 2.9 GM/DL (3.2-5.2); BILIRUBIN,TOTAL 0.2 MG/DL (0.2-1.0); C REACTIVE PROTEIN QUANTITATIV 6.87 MG/DL (0.00-0.30); CALCIUM LEVEL 9.5 MG/DL (8.5-10.1); CREATININE FOR GFR 1.16 MG/DL (0.55-1.30); GLOMERULAR FILTRATION RATE 52.2 (>51); POTASSIUM SERUM 6.5 MEQ/L (3.5-5.1); TOTAL PROTEIN 7.5 GM/DL (6.4-8.2)
[2019-12-30] MEDS ORDERED: SODIUM BICARBONATE 8.4% INJ 50 ML SYRINGE IV STA (12:28)
[2019-12-30] MEDS ORDERED: CALCIUM CHLORIDE 10% 1 GM/10 ML SYR IV STA (12:28)
[2019-12-30] MEDS ORDERED: INSULIN REGULAR IN 0.9 % NACL 100 UNIT in IV 1 EA IV SCH ×4 (12:30→12:33)
[2019-12-30] MEDS ORDERED: SOD POLYSTYRENE SULFONATE SUSP 15 GM/60 ML UD PO ONE (12:30)
[2019-12-30] MEDS ORDERED: INSULIN IV RATE CHANGE DOCUMENTATION ML/HR XX SCH ×2 (12:30→12:45)
--- NOTE | 2019-12-30 12:36 | REPVR ---
PROCEDURE INFORMATION: Exam: XR Left Foot Complete Exam date and time: 12/30/2019 11:37 AM Age: 54 years old Clinical indication: Other: Infection TECHNIQUE: Imaging protocol: XR Left foot. Views: 3 or more views. COMPARISON: No relevant prior studies available. FINDINGS: Bones/joints: Mild scattered degenerative changes. No erosive or destructive changes. No acute fracture or traumatic malalignment. Soft tissues: Soft tissue swelling along the lateral aspect of the 5th metatarsophalangeal joint. IMPRESSION: 1. No acute osseous abnormality. 2. Soft tissue swelling along the lateral aspect of the 5th metatarsophalangeal joint. Electronically signed by: Barrett Jane On 12/30/2019 12:36:26 PM
[2019-12-30] MEDS ORDERED: HYDROMORPHONE HCL 0.5 MG/ 0.5 ML SYRINGE (J1170 PER 1) IV ONE (13:15)
[2019-12-30] MEDS: KETOROLAC 30 MG/ML 1ML VIAL IV SCH ×2 (13:42→19:45)
[2019-12-30] MEDS: VANCOMYCIN HCL 1,000 MG, VIAL MATE ADAPTER 1 EACH in D5W 250 ML IV SCH ×2 (13:44→21:20)
[2019-12-30] MEDS: NS 1,000 ML IV SCH ×3 (14:00→15:53)
[2019-12-30 14:10] VITALS: BP 179/86
[2019-12-30 14:29] LABS: BLOOD UREA NITROGEN 28 MG/DL (7-18); C REACTIVE PROTEIN QUANTITATIV 6.13 MG/DL (0.00-0.30); CALCIUM LEVEL 10.6 MG/DL (8.5-10.1); CARBON DIOXIDE LEVEL 29 MEQ/L (21-32); CHLORIDE LEVEL 98 MEQ/L (98-107); CREATININE FOR GFR 0.93 MG/DL (0.55-1.30); GLOMERULAR FILTRATION RATE > 60.0 (>51); GLUCOSE, FASTING 530 MG/DL (70-100); POTASSIUM SERUM 4.5 MEQ/L (3.5-5.1); SODIUM LEVEL 131 MEQ/L (136-145)
[2019-12-30] MEDS ORDERED: ONDANSETRON 4 MG TAB PO PRN (14:45)
[2019-12-30] MEDS ORDERED: ALBUTEROL 90 MCG/ACT 8GM HFA INHALER INH PRN (14:45)
[2019-12-30] MEDS ORDERED: GLUCAGON INJ 1MG VIAL SC PRN (14:45)
[2019-12-30] MEDS ORDERED: NORCO, ANEXSIA 5/325MG TABLET (HYDROcodone/ACETAMINOPHEN) PO PRN (14:45)
[2019-12-30] MEDS ORDERED: DEXTROSE 50% 50 ML SYRINGE IV PRN (14:45)
[2019-12-30] MEDS ORDERED: GLUCOSE 4GM CHEW TABLET PO PRN (14:45)
[2019-12-30] MEDS ORDERED: CYCLOBENZAPRINE 5MG TABLET PO PRN (14:45)
[2019-12-30] MEDS ORDERED: NYSTATIN 100,000 UNITS/GM TOPICAL PWD 15 GM TOP PRN (14:45)
[2019-12-30 15:00] VITALS: BP 149/69
[2019-12-30] MEDS ORDERED: LEVEMIR (INSULIN DETEMIR) 1 UNITS/0.01ML SC ONE (15:00)
[2019-12-30] MEDS ORDERED: HumaLOG INSULIN (NovoLOG) PER UNIT SC SCH ×5 (15:00→21:00)
[2019-12-30] MEDS ORDERED: FLUBLOK(EGG FREE)(QUAD)INFLUENZA VACC 0.5ML SYRINGE 18YRS & OLDER IM PRN (15:15)
[2019-12-30] MEDS: lisinopriL 5 MG TAB PO SCH (15:55)
[2019-12-30] MEDS: FERROUS SULFATE 325MG TAB PO SCH (15:56)
[2019-12-30] MEDS: LORATADINE 10 MG TAB PO SCH (15:56)
[2019-12-30] MEDS: buPROPion **XL** TABLET 150MG (WELLBUTRIN XL) PO SCH (15:56)
[2019-12-30] MEDS: METOCLOPRAMIDE 10 MG TAB PO SCH (15:56)
[2019-12-30 16:00] VITALS: BP 150/73
[2019-12-30] MEDS: PENTOXIFYLLINE 400 MG TAB PO SCH ×2 (16:02→20:57)
[2019-12-30 17:00] VITALS: BP 160/71
[2019-12-30 17:59] LABS: HEMOGLOBIN A1c 9.1 %
[2019-12-30] MEDS ORDERED: cefTRIAXone SOD 2 GM in D5W MINI-BAG PLUS 50 ML IV SCH (18:00)
[2019-12-30] MEDS: HumaLOG INSULIN (NovoLOG) PER UNIT SC SCH (18:28)
[2019-12-30 20:00] VITALS: BP 156/70
[2019-12-30] MEDS: DOCUSATE SODIUM 100 MG CAP PO SCH (20:57)
[2019-12-30] MEDS: OMEPRAZOLE 20 MG CAP PO SCH (20:57)
[2019-12-30] MEDS: DULoxetine 30 MG CAP (CYMBALTA) PO SCH (20:57)
[2019-12-30] MEDS: LEVEMIR (INSULIN DETEMIR) 1 UNITS/0.01ML SC SCH (20:58)
[2019-12-30] MEDS ORDERED: LEVEMIR (INSULIN DETEMIR) 1 UNITS/0.01ML SC SCH (21:00)
[2019-12-30] MEDS ORDERED: ATORVASTATIN 20 MG TAB PO SCH (21:00)
[2019-12-31] VITALS (9 sets, daily range): BP systolic 94–153; BP diastolic 63–78
[2019-12-31] MEDS: NS 1,000 ML IV SCH (00:07)
[2019-12-31 00:31] LABS: BLOOD UREA NITROGEN 24 MG/DL (7-18); CALCIUM LEVEL 9.5 MG/DL (8.5-10.1); CARBON DIOXIDE LEVEL 29 MEQ/L (21-32); CHLORIDE LEVEL 105 MEQ/L (98-107); CREATININE FOR GFR 0.75 MG/DL (0.55-1.30); GLOMERULAR FILTRATION RATE > 60.0 (>51); GLUCOSE, FASTING 228 MG/DL (70-100); SODIUM LEVEL 137 MEQ/L (136-145)
[2019-12-31] MEDS: KETOROLAC 30 MG/ML 1ML VIAL IV SCH (02:09)
[2019-12-31 04:28] LABS: BASO # 0.1 10^3/uL (0.0-0.2); BASO % 0.6 % (0.0-1.0); EOS # 0.2 10^3/uL (0.0-0.5); HEMATOCRIT 40.8 % (36.0-47.0); HEMOGLOBIN 12.8 g/dl (12.0-15.5); LYMPH # 1.6 10^3/uL (1.5-5.0); LYMPH % 18.5 % (24.0-44.0); MEAN CORPUSCULAR HEMOGLOBIN 26.3 pg (27.0-33.0); MEAN CORPUSCULAR HGB CONC 31.4 g/dl (32.0-36.5); MONO # 0.6 10^3/uL (0.0-0.8); MONO % 6.7 % (0.0-5.0); NEUTROPHILS # 6.3 10^3/uL (1.5-8.5); NEUTROPHILS % 71.9 % (36.0-66.0); PLATELET COUNT, AUTOMATED 293 10^3/uL (150-450); RED BLOOD COUNT 4.86 10^6/uL (4.00-5.40); WHITE BLOOD COUNT 8.7 10^3/uL (4.0-10.0)
[2019-12-31 05:03] LABS: BLOOD UREA NITROGEN 19 MG/DL (7-18); CALCIUM LEVEL 9.2 MG/DL (8.5-10.1); CARBON DIOXIDE LEVEL 30 MEQ/L (21-32); CHLORIDE LEVEL 107 MEQ/L (98-107); CREATININE FOR GFR 0.61 MG/DL (0.55-1.30); GLOMERULAR FILTRATION RATE > 60.0 (>51); GLUCOSE, FASTING 154 MG/DL (70-100); POTASSIUM SERUM 3.8 MEQ/L (3.5-5.1); SODIUM LEVEL 138 MEQ/L (136-145)
[2019-12-31] MEDS: VANCOMYCIN HCL 1,000 MG, VIAL MATE ADAPTER 1 EACH in D5W 250 ML IV SCH ×2 (06:12→14:52)
--- NOTE | 2019-12-31 08:13 | IPNPDOC ---
Date Seen The patient was seen on 12/31/19. Progress Note Progress note dictated Assessment: 54-year-old female with past medical history of diabetes mellitus, coronary artery disease, CABG, [place], history of chronic respiratory failure status post tracheostomy, COPD and hypertension, PAD presents from home with Hyperosmolar Hyperglycemic State due to medical noncompliance with insulin with glucose>700 and normal anion gap, due to limited ADLs from persistent and progressively worsening pain in left heel from a nonhealing diabetic ulcer managed by incubator tender Dr. Edge with plans for debridement this Wednesday on Doxycycline as outpt. COVID NEGATIVE 12/29/19. Hyperosmolar Hyperglycemic State Left heel diabetic ulcer, infected r/o osteomyelitis DM2, uncontrolled HTN Obesity H/O CAD [place] CABG COPD PAD Plan: Pt is medically optimized to proceed with debridement of the left heel. NPO after midnight. IVF while NPO. Empiric Vanco and ceftriaxone until cultures are finalized. Await blood cx results. Held ASA and Plavix. Resume postop. MRI left foot to rule out osteo. VS, I&O, 24H, [facility] Vital Signs/I&O Vital Signs Date Time Temp Pulse Resp B/P (MAP) Pulse Ox O2 Delivery O2 Flow Rate FiO2 12/31/19 04:00 98.0 89 16 147/70 (95) 97 Room Air 12/30/19 11:18 97 I&O- Last 24 Hours up to 6 AM 12/31/19 06:00 Intake Total 6175 ml Output Total 3375 ml Balance 2800 ml Laboratory Data 24H LABS Laboratory Tests 2 12/30/19 11:11: Immature Granulocyte % (Auto) 0.3, Neutrophils (%) (Auto) 85.1H, Lymphocytes (%) (Auto) 10.2L, Monocytes (%) (Auto) 3.5, Eosinophils (%) (Auto) 0.3, Basophils (%) (Auto) 0.6, Neutrophils # (Auto) 10.7H, Lymphocytes # (Auto) 1.3L, Monocytes # (Auto) 0.4, Eosinophils # (Auto) 0.0, Basophils # (Auto) 0.1, Nucleated Red Blood Cells % (auto) 0.0, Erythrocyte Sedimentation Rate 32H, Blood Gas Bicarbonate Standard 23.5, Venous Blood pH 7.328L, Venous Blood Partial Pressure CO2 50.0, Venous Blood Partial Pressure O2 55.8H, Venous Blood Total Carbon Dioxide 27.2, Venous Blood HCO3 25.7, Venous Blood Oxygen Saturation 88.1H, Venous Blood Base Excess -1.0, Anion Gap 6L, Glomerular Filtration Rate 52.2, Lactic Acid Level 2.4*H, Calcium Level 9.5, Total Bilirubin 0.2, Aspartate Amino Transf (AST/SGOT) 16, Alanine Aminotransferase (ALT/SGPT) 16, Alkaline Farida sphatase 188H, C-Reactive Protein, Quantitative 6.87H, Total Protein 7.5, Albumin 2.9L, Albumin/Globulin Ratio 0.6L 12/30/19 12:57: Methicillin-Resist S.aureus DNA PCR NOT DETECTED 12/30/19 13:34: Erythrocyte Sedimentation Rate 63H, Anion Gap 4L, Glomerular Filtration Rate > 60.0, Calcium Level 10.6H, C-Reactive Protein, Quantitative 6.13H, Estimated Mean Plasma Glucose 214H, Hemoglobin A1c 9.1 12/30/19 14:08: Bedside Glucose (Misc Panel) 443H 12/30/19 15:28: Bedside Glucose (Misc Panel) 343H 12/30/19 15:35: Lactic Acid Followup at 4 Hours 2.6*H 12/30/19 16:12: Bedside Glucose (Misc Panel) 254H 12/30/19 17:12: Bedside Glucose (Misc Panel) 251H 12/30/19 18:20: Bedside Glucose (Misc Panel) 198H 12/30/19 20:47: Bedside Glucose (Misc Panel) 249H 12/30/19 23:51: Anion Gap 3L, Glomerular Filtration Rate > 60.0, Calcium Level 9.5 12/31/19 04:01: Anion Gap 1L, Glomerular Filtration Rate > 60.0, Calcium Level 9.2, Immature Granulocyte % (Auto) 0.3, Neutrophils (%) (Auto) 71.9H, Lymphocytes (%) (Auto) 18.5L, Monocytes (%) (Auto) 6.7H, Eosinophils (%) (Auto) 2.0, Basophils (%) (Auto) 0.6, Neutrophils # (Auto) 6.3, Lymphocytes # (Auto) 1.6, Monocytes # (Auto) 0.6, Eosinophils # (Auto) 0.2, Basophils # (Auto) 0.1, Nucleated Red Blood Cells % (auto) 0.0 CBC/BMP Laboratory Tests 12/30/19 11:11 12/30/19 13:34 12/30/19 23:51 12/31/19 04:01 Microbiology Microbiology 12/30/19 Blood Culture, Received Pending 12/30/19 Gram Stain - Final, Resulted 12/30/19 Wound Culture, Resulted Pending 12/30/19 Blood Culture, Received Pending 12/30/19 Blood Culture, Received Pending PHYLICIA BEAULIEU MD Dec 31, 2019 08:13
[2019-12-31] MEDS: HumaLOG INSULIN (NovoLOG) PER UNIT SC SCH ×2 (08:27→12:37)
[2019-12-31] MEDS: DOCUSATE SODIUM 100 MG CAP PO SCH (08:28)
[2019-12-31] MEDS: FERROUS SULFATE 325MG TAB PO SCH (08:28)
[2019-12-31] MEDS: OMEPRAZOLE 20 MG CAP PO SCH (08:28)
[2019-12-31] MEDS: METOCLOPRAMIDE 10 MG TAB PO SCH (08:28)
[2019-12-31] MEDS: DULoxetine 30 MG CAP (CYMBALTA) PO SCH (08:28)
[2019-12-31] MEDS: buPROPion **XL** TABLET 150MG (WELLBUTRIN XL) PO SCH (08:28)
[2019-12-31] MEDS: lisinopriL 5 MG TAB PO SCH (08:29)
[2019-12-31] MEDS: LORATADINE 10 MG TAB PO SCH (08:29)
[2019-12-31] MEDS: PENTOXIFYLLINE 400 MG TAB PO SCH ×2 (08:29→15:54)
[2019-12-31] MEDS: LEVEMIR (INSULIN DETEMIR) 1 UNITS/0.01ML SC SCH (08:30)
[2019-12-31] MEDS ORDERED: NS 1,000 ML IV SCH (08:30)
[2019-12-31 08:36] LABS: INR 0.95; PROTHROMBIN TIME 12.8 SECONDS (11.8-14.0)
[2019-12-31 09:09] LABS: CHOLESTEROL RISK RATIO 4.729 (<5); MAGNESIUM LEVEL 1.5 MG/DL (1.8-2.4); THYROID STIMULATING HORMONE 1.36 uIU/ML (0.358-3.740)
[2019-12-31] MEDS ORDERED: BUPIVACAINE HCL 0.5% 10ML VIAL ONE (10:09)
[2019-12-31] MEDS ORDERED: LIDOCAINE 1% MDV 20ML VIAL ONE (10:09)
[2019-12-31] MEDS ORDERED: LIDOCAINE 2% 100MG/5ML SDV (FOR ANES.) As Ordered ONE (11:04)
[2019-12-31] MEDS ORDERED: DESFLURANE 240 ML INHALANT As Ordered ONE (11:04)
[2019-12-31] MEDS ORDERED: propofoL 200 MG/20 ML VIAL As Ordered ONE (11:04)
[2019-12-31] MEDS ORDERED: fentaNYL 100 MCG/2 ML INJECTION (J3010) As Ordered ONE (11:04)
[2019-12-31] MEDS ORDERED: MIDAZOLAM INJ 2MG/2ML VIAL (J2250 PER 1MG) As Ordered ONE (11:04)
[2019-12-31] MEDS ORDERED: FLUBLOK(EGG FREE)(QUAD)INFLUENZA VACC 0.5ML SYRINGE 18YRS & OLDER IM ONE (14:00)
--- NOTE | 2019-12-31 14:39 | HPE ---
DATE: 12/31/2019 SUBJECTIVE: The patient seen and examined in the bed, chart has been reviewed. The patient's glucose had been controlled overnight. She has 2/10 pain of the left heel. No fever or chills. No chest pain, pressure, tightness or shortness of breath, lightheadedness or dizziness. PHYSICAL EXAMINATION: Temperature 98, pulse 89, respiratory rate 16, blood pressure 147/70, 97% on room air. General: Awake, alert and oriented x 3, answering questions appropriately. No cyanosis, icterus, pallor, dry mucous membranes. No jugular venous distention (JVD) or cervical lymphadenopathy. Lungs are clear to auscultation. No wheezes, rales or rhonchi. Heart: S1, S2 sinus rhythm. Abdomen: Soft, nontender, non-distended. Positive bowel sounds. Extremities: Trace lower extremity edema. Left heel 4.5 cm ulcer, malodorous, purulent drainage. Right foot has a 4.5 cm lateral incision, clean, dry. No tenderness or erythema. LABORATORY DATA: White count 8.7, hemoglobin 12, hematocrit 40, platelet count 293, sodium 138, potassium 3.8, chloride 107, bicarbonate 30 BUN 19, creatinine 0.6, glucose of 54. IMAGING STUDY: Foot x-ray 12/30/2019: No acute osseous abnormalities. Soft tissue swelling along the lateral aspect of the 5th metatarsophalangeal joint. ASSESSMENT AND PLAN: 55-year-old female with history of peripheral artery disease on chronic aspirin and Plavix, coronary artery disease (CAD), coronary artery bypass grafting (CABG), myocardial infarction (CT), diabetes, hypertension, obesity, presents to the emergency room with noncompliance for one week with her insulin due to increasing pain, redness, swelling and purulent discharge out of the left heel. The patient did not use any insulin for a week and has not been feeling well for the past few days without any fever, admitted for the following issues: 1. Left diabetic ulcer, nonhealing, infection. 2. Hyperosmolar hyperglycemic, nonketotic state. 3. Uncontrolled type 2 diabetes due to medical noncompliance. 4. Hypertension. 5. Hyperkalemia. 6. Hyponatremia. 7. Lactic acidosis. 8. History of coronary artery disease (CAD), coronary artery bypass grafting (CABG), myocardial infarction (CT). PLAN: The patient is n.p.o. after midnight. School Child Care Attendant, Dr. Edge, has been consulted for debridement of the left heel. MRI of the left foot to rule out osteomyelitis and broad-spectrum vancomycin and ceftriaxone to cover gram positive infection and methicillin-resistant Staphylococcus aureus (MRSA) along with gram negative infection with Klebsiella or pseudomonas in light of being a diabetic. The patient's glucose has been controlled on insulin drip and lispro insulin q2 hourly yesterday, currently stable. No signs of acidemia. At this time, her aspirin and Plavix have been held. She is medically stable to proceed for incision and drainage. Medical optimization has been done. MTDD
--- NOTE | 2019-12-31 14:55 | REPVR ---
PROCEDURE INFORMATION: Exam: MR Left Lower Extremity Other Than Joint Without and With Contrast; Hindfoot Exam date and time: 12/31/2019 2:42 PM Age: 54 years old Clinical indication: Condition or disease; Other: Left heel ulcer; Prior surgery; Surgery date: Post-operative (0-2 days); Surgery type: Debridement; Additional info: Left heel ulcer R/O osteo TECHNIQUE: Imaging protocol: MR of the Left lower extremity other than joint without and with contrast. Exam focused on the hindfoot. Contrast material: PROHANCE; Contrast volume: 14 ml; Contrast route: INTRAVENOUS (IV); COMPARISON: CR Foot, complete LEFT 12/30/2019 11:48 AM FINDINGS: Bones and cartilage: The posterior calcaneus demonstrates moderate subcortical marrow edema with mildly decreased T1 signal. There is no definitive cortical disruption. This could be reactive or related to osteomyelitis. There is no evidence for osteomyelitis elsewhere. The talar dome is maintained in contour, and its articular cartilage is intact. Mild areas of subcortical marrow edema in the medial and lateral corners of the talar dome are likely degenerative. There is mild osteophyte formation about the tibiotalar and multiple intertarsal joints. Small plantar and posterior calcaneal enthesophytes are again present. Joint spaces: The joint spaces are normally aligned. A small effusion involves the tibiotalar/posterior subtalar joint. LIGAMENTS: Distal tibiofibular syndesmosis: Unremarkable. No tear. Anterior talofibular ligament: Unremarkable. No tear. Posterior talofibular ligament: Unremarkable. No tear. Calcaneofibular ligament: Unremarkable. No tear. Deltoid ligament complex: Unremarkable. No tear. TENDONS: Flexor tendons of foot: Unremarkable as visualized. Tibialis posterior tendon: Unremarkable as visualized. Peroneal tendons: Unremarkable as visualized. Extensor tendons of foot: Unremarkable as visualized. Tibialis anterior tendon: Unremarkable as visualized. Achilles tendon: Unremarkable as visualized. Tarsal canal (Sinus tarsi): Mild edema. Tarsal tunnel: Unremarkable. Muscles: Unremarkable. Soft tissues: There is a soft tissue defect over the medial plantar aspect of the calcaneus posteriorly, compatible with recent surgical debridement. The soft tissues elsewhere about the hindfoot demonstrate edema, without discrete collection to suggest abscess. Plantar fascia: There is mild insertional plantar fasciitis. A portion of the plantar fascia medially has probably been resected. IMPRESSION: 1. Operative changes of recent surgical debridement along the medial plantar aspect of the hindfoot. 2. Soft tissue edema elsewhere about the hindfoot, without discrete abscess. 3. Moderate focal subcortical marrow signal change in the posterior calcaneus without definitive cortical disruption, could be reactive or related to osteomyelitis. 4. Mild insertional plantar fasciitis with a portion of the plantar fascia medially probably resected. 5. Small nonspecific tibiotalar/posterior subtalar joint effusion. 6. Degenerative changes as described. Electronically signed by: Baljinder Walsh On 12/31/2019 14:55:21 PM
[2019-12-31] MEDS ORDERED: BACITAB PO (16:49)
[2019-12-31] MEDS ORDERED: LEVA750T7 PO (16:49)
[2019-12-31] MEDS ORDERED: CLIN150C14 PO (16:49)
--- NOTE | 2020-01-01 08:47 | ECGEPIP ---
[facility] - ED Test Date: 2019-12-30 Pat Name: TATIANNA LAMB Department: Room: [place] [address] Gender: Female Major Gifts Director: todd : 1965 Requested By: Rena Lopez Order Number: [id number] Reading MD: Rena Lopez Measurements Intervals [place] Rate: 100 P: 60 [place]: 164 QRS: 26 QRSD: 97 T: 88 QT: 338 QTc: 438 Interpretive Statements SINUS TACHYCARDIA ABNORMAL RHYTHM ECG DELAYED R PROGRESSION NSTTW ABN SEE SCANNED DOWNTIME REPORT
--- NOTE | 2020-01-01 14:05 | HPE ---
DATE OF ADMISSION: 12/30/2019 CHIEF COMPLAINT: "My sugars are high." HISTORY OF PRESENT ILLNESS: This is a 54-year-old female with a history of diabetes, coronary artery disease (CAD), myocardial infarction (VT), hypertension, chronic respiratory failure, status post tracheostomy, peripheral arterial disease, chronic obstructive pulmonary disease (COPD), coronary artery bypass graft (CABG), and tracheostomy who was in her usual state of health until a week ago, when she had increasing malodorous purulent drainage coming out of the left heel without fever and was noted to have increasing pain, unable to ambulate. She has been complaining of chills for the past 2 days and stopped taking her insulin due to difficulty ambulating with severe pain, 10/10, sharp and constant, not alleviated by her home medications. She usually follows with Dr. Edge with plans for debridement on Wednesday and had COVID testing last Wednesday. Patient presents due to uncontrolled glucose. Patient otherwise denies any shortness of breath, chest pain, pressure, or tightness, cough. Denies nausea, vomiting, diarrhea, abdominal pain. Denies upper or lower extremity weakness. No other complaints. In the emergency room (ER) she was found to have glucose of over 700, admitted for hyperglycemic, hyperosmolar, nonketotic (H, H, NK) and K with insulin drip in the intensive care unit (ICU). Patient was noted to have significant purulent drainage of the left heel. Wound cultures have been sent. Patient has been started on IV vancomycin with methicillin-resistant Staphylococcus aureus (MRSA) screen pending. MEDICAL HISTORY: 1. CAD/CABG. 2. VT. 3. Hypertension. 4. Chronic respiratory failure status post tracheostomy. 5. COPD. 6. Diabetes. 7. Peripheral arterial disease. HOME MEDICATIONS: - albuterol two puffs every 4 as needed - aspirin 325 daily - atorvastatin 80 every night - bupropion 150 daily - Plavix 75 daily - cyclobenzaprine 5 every night - Colace 100 twice a day - doxycycline 100 twice a day - Cymbalta 60 twice a day - ferrous sulfate 325 daily - hydrocodone/acetaminophen one tablet every 8 as needed - lisinopril 5 daily - loratadine 10 daily - Reglan 10 daily - nystatin as needed - Prilosec 40 twice a day - Zofran 5 mg as needed - pentoxifyline 400 three times a day - Trulicity 0.75 mg subcutaneous weekly - Steglatro 15 mg every night - Tresiba 72 units subcutaneous twice a day - Lyrica 150 twice a day. PAST SURGICAL HISTORY: 1. CABG. 2. Tracheostomy. 3. Stents to her lower extremities. SOCIAL HISTORY: Smoker, one and one-half packs a day for greater than 30 years. Currently smokes less than a half a pack. Has not smoked in 2 days. Denies alcohol, recreational drug use. FAMILY HISTORY: Coronary artery disease. REVIEW OF SYSTEMS: Per history of present illness (HPI). A 12-point system otherwise negative. PHYSICAL EXAMINATION: Temperature 97.5 pulse 112, respiratory rate 24, blood pressure 145/60, 95% on room air. GENERAL: Awake, alert, oriented to person, place, and time, answering questions appropriately. No jugular venous distention (JVD). No thyromegaly. No cervical lymphadenopathy. Dry mucous membranes. LUNGS: Clear to auscultation. No wheezing, rales, or rhonchi. HEART: S1, S2, sinus rhythm. ABDOMEN: Soft, nontender, nondistended. Positive bowel sounds. EXTREMITIES: Left heel has a 5 cm open ulcer in the heel with purulent drainage, very tender around the area. Dorsalis pedis and posterior tibialis diminished pulses. Right foot has a 4.5 cm lateral incision, well healed, nontender. White count 12.6, hemoglobin 13, hematocrit 45, platelet count 375. Sodium 126, potassium 6.5, chloride 95, bicarbonate 25, BUN 28, creatinine 1.16, glucose 779, lactic acid 2.4. C-reactive protein of 6.87. IMAGING STUDY: December 29 foot x-ray: Soft tissue swelling along the lateral aspect of the 5th metatarsal joint, left foot. MRI of the foot pending. ASSESSMENT AND PLAN: A 54-year-old with a history of coronary artery disease (CAD), coronary artery bypass graft (CABG), myocardial infarction (VT), hypertension, chronic respiratory failure, chronic obstructive pulmonary disease (COPD), peripheral arterial disease with stenting the lower extremity, presents with a 1-week history of worsening pain and discharge of the left heel with uncontrolled sugar at home since she had been unable to ambulate to get her insulin. IMPRESSION: 1. Hyperosmolar Hyperglycemic state/ Hyperosmotic Hyperglycemic Nonketotic State, due to noncompliance 2. Left heel diabetic ulcer, infected, with intractable pain 3. Peripheral arterial disease. 4. History of CAD, VT, and CABG. 5. Hypertensive heart disease. 6. History of COPD. 7. Active tobacco smoker. 8. Hyponatremia. 9. Hyperkalemia. PLAN: 1. Patient will be admitted to the intensive care unit (ICU), placed on insulin drip with every 1-hour fingersticks and every 4 hours basic metabolic profile (BMP). Once patient's glucose is less than 200, may discontinue insulin drip and start on Levemir insulin twice a day with sliding scale, before meals, at bedtime, consistent-carbohydrate diet. Check A1c. Patient's decompensation was triggered by noncompliance. She said that her pain was so severe she was unable to get her insulin and administer this at home for the past 2 days; however, there is active infection with purulent drainage of the left heel. Patient will be given vancomycin, to be dosed by pharmacy. Dr. Edge has been consulted. COVID testing had been done on December 28, and she will go for debridement per Dr. Edge. Continue with IV antibiotics for now. Obtain blood culture. MRI of the foot to rule out osteomyelitis. 2. For the hyperkalemia, patient had been given calcium gluconate, Kayexalate. Will continue with IV fluid and every 4 hour metabolic panel. Resume all other home medications aside from aspirin and Plavix, since the patient will be debrided. May continue home dose of atorvastatin, cyclobenzaprine, and Cymbalta. [facility]
--- NOTE | 2020-01-01 14:41 | CR ---
DATE OF CONSULTATION: 12/31/2019 REASON FOR CONSULTATION: Foot ulceration. HISTORY OF PRESENT ILLNESS: Shawna Soto is a 54-year-old female who was admitted yesterday with hyperglycemia. She has been a patient of mine with longstanding ulcerations due to peripheral vascular disease. She has had angiograms in the past. She has been evaluated by Wound Care. She has ulceration on her left heel which requires operative debridement. There were plans for this on Wednesday, but given she was admitted, plan was decided to bring her to the operating room today for earlier debridement. PAST MEDICAL HISTORY: 1. Diabetes. 2. Uncontrolled hypertension. 3. Obesity. 4. Coronary artery disease status post AK and CABG. 5. COPD. 6. Peripheral arterial disease. PAST SURGICAL HISTORY: 1. CABG. 2. Vascular procedures. REVIEW OF SYSTEMS: She denies fevers, nausea, or vomiting. PHYSICAL EXAMINATION: Vitals: She has been febrile. Lower extremity examination: Pedal pulses not palpable. There is an ulceration on the right with a relatively granular base. No signs of infection. On the left, there is a necrotic heal wound. LABORATORY DATA: Labs were reviewed. White blood cell count was 12.6 on admission. ESR 63. ASSESSMENT: A 54-year-old diabetic female with left heel ulceration. PLAN: Will bring her to the OR now for heel wound debridement. She will have wound care following this. RICHARD
--- NOTE | 2020-01-01 14:43 | RO ---
DATE OF OPERATION: 12/31/2019 SURGEON: Antoine Edge DPM. QUALITY CONTROL SYSTEMS MANAGER: None. PREOPERATIVE DIAGNOSIS: Left heel ulcer. POSTOPERATIVE DIAGNOSIS: Left heel ulcer. PROCEDURE: Left foot heel wound debridement, excisional, including bone. ANESTHESIA: Monitored anesthesia care and preop injection of 18 mL of 1:1 mixture of 1% lidocaine plain and 0.5% Marcaine plain. ESTIMATED BLOOD LOSS: Minimal. MATERIALS: None. COMPLICATIONS: None. SPECIMENS: Left heel bone. CONDITION: Stable. INDICATION: Shawna Soto is a 54-year-old female who has ulceration of her left heel. Plan is for a heel wound debridement. DESCRIPTION OF PROCEDURE: Patient's site and side were marked in the preoperative area. Consent was reviewed and obtained. The risks, complications, and alternatives to the procedure were explained to the patient in detail, and all questions were answered. Patient was brought to the operating room and placed on the operating table in the supine position. Monitored anesthesia care was delivered by the Anesthesia team. Preop injection of 18 mL of 1:1 mixture of 1% lidocaine plan and 0.5% Marcaine plain was injected into the left foot. Left foot was prepped and draped in the usual sterile fashion. Heel was inspected. There was necrotic eschar on the left heel with some purulent tissue. The nonviable tissue was removed using a #10 blade and rongeur. The heel bone was inspected with some nonviable tissue at the surface. This was also removed with rongeur and sent for pathology. Site was irrigated with normal saline. Some additional debridement performed until no further necrotic tissue was identified. Bovie was used to cauterize small bleeding vessel. Site was irrigated once more and then wound was packed with saline gauze. Patient was brought to PACU with vital signs stable and neurovascular status intact. She will be admitted to the floor. Will start wound care to performed daily tomorrow. She should have the heels offloaded in offloading heel boots while in bed. RICHARD
== END 2019-12-31 17:01 | disposition left against medical advice (07) | DRG 405 ==
LOC: M ED 10:44 → M ED INP 12:31 → M ICU 14:08 → M MS5PR 12-31 11:43
PROVIDERS: ADMIT General Practice; ATTEND General Practice
PROC: 0QBM0ZZ Excision of Left Tarsal, Open Approach (ICD-10-PCS; principal; 2019-12-31 10:00)
DX: E11.00 Type 2 diabetes mellitus with hyperosmolarity without nonketotic hyperglycemic-hyperosmolar coma (NKHHC) (principal); J96.10 Chronic respiratory failure, unspecified whether with hypoxia or hypercapnia; E87.0 Hyperosmolality and hypernatremia; E11.51 Type 2 diabetes mellitus with diabetic peripheral angiopathy without gangrene; E11.621 Type 2 diabetes mellitus with foot ulcer; E87.5 Hyperkalemia; L97.429 Non-pressure chronic ulcer of left heel and midfoot with unspecified severity; I11.9 Hypertensive heart disease without heart failure; Z91.14 Patient's other noncompliance with medication regimen; J44.9 Chronic obstructive pulmonary disease, unspecified; I25.10 Atherosclerotic heart disease of native coronary artery without angina pectoris; I25.2 Old myocardial infarction; F17.200 Nicotine dependence, unspecified, uncomplicated; Z79.82 Long term (current) use of aspirin; Z79.899 Other long term (current) drug therapy

== ENCOUNTER → 2020-01-05 | Outpatient (REF) | payer OTHER, MEDICAID, BC ==
[~2020-01-05] MED LIST changes: +BACITAB PO; +CLIN150C14 PO; -DOXYCYCLINE HYCLATE 100MG TABLET PO SCH; +ESCI10TA2 PO; +ONDA-83 PO; +OXYC1TAB23 PO; +TRUL0.5I SC; +ZOFR4TAB16 PO
== END ==
LOC: M LAB REF 15:10
PROVIDERS: ATTEND Physician Assistant
DX: S91.002D Unspecified open wound, left ankle, subsequent encounter (principal); X58.XXXD Exposure to other specified factors, subsequent encounter; Y92.9 Unspecified place or not applicable

== ENCOUNTER → 2020-01-15 | Outpatient (CLI) | payer OTHER, MEDICAID ==
[2020-01-15 15:42] LABS: BASO # 0.1 10^3/uL (0.0-0.2); BASO % 0.6 % (0.0-1.0); EOS # 0.2 10^3/uL (0.0-0.5); EOS % 1.6 % (0.0-3.0); HEMATOCRIT 41.9 % (36.0-47.0); HEMOGLOBIN 13.4 g/dl (12.0-15.5); LYMPH # 2.7 10^3/uL (1.5-5.0); LYMPH % 21.4 % (24.0-44.0); MEAN CORPUSCULAR VOLUME 84.3 fl (80.0-96.0); MONO # 0.7 10^3/uL (0.0-0.8); MONO % 5.5 % (0.0-5.0); NEUTROPHILS # 8.8 10^3/uL (1.5-8.5); NEUTROPHILS % 70.4 % (36.0-66.0); PLATELET COUNT, AUTOMATED 324 10^3/uL (150-450); RED BLOOD COUNT 4.97 10^6/uL (4.00-5.40); WHITE BLOOD COUNT 12.5 10^3/uL (4.0-10.0)
[2020-01-15 16:03] LABS: ERYTHROCYTE SEDIMENTATION RATE 65 mm/hr (0-30)
[2020-01-15 16:07] LABS: ALBUMIN 2.7 GM/DL (3.2-5.2); ALT/SGPT 19 U/L (12-78); BILIRUBIN,TOTAL 0.2 MG/DL (0.2-1.0); BLOOD UREA NITROGEN 18 MG/DL (7-18); C REACTIVE PROTEIN QUANTITATIV 3.55 MG/DL (0.00-0.30); CALCIUM LEVEL 8.8 MG/DL (8.5-10.1); CARBON DIOXIDE LEVEL 27 MEQ/L (21-32); CHLORIDE LEVEL 104 MEQ/L (98-107); CREATININE FOR GFR 0.75 MG/DL (0.55-1.30); GLOMERULAR FILTRATION RATE > 60.0 (>51); GLUCOSE, FASTING 207 MG/DL (70-100); POTASSIUM SERUM 4.4 MEQ/L (3.5-5.1); SODIUM LEVEL 136 MEQ/L (136-145); TOTAL PROTEIN 6.7 GM/DL (6.4-8.2)
== END ==
LOC: M LAB 15:00
PROVIDERS: ATTEND Physician Assistant
DX: E11.40 Type 2 diabetes mellitus with diabetic neuropathy, unspecified (principal)

== ENCOUNTER 2020-02-04 11:52 | Emergency (ER) | payer MEDICAID, OTHER ==
[~2020-02-04] VITALS: Ht 162.6 cm; Wt 73.0 kg
[~2020-02-04 11:52] MED LIST changes: -ESCI10TA2 PO; -OXYC1TAB23 PO; -TRUL0.5I SC; -ZOFR4TAB16 PO
[2020-02-04 12:30] LABS: VENOUS BASE EXCESS -1.3 (-2.0-2.0); VENOUS HCO3 24.2 MEQ/L (23.0-27.0); VENOUS O2 SATURATION 86.8 % (60.0-80.0); VENOUS PARTIAL PRESSURE CO2 43.4 mmHg (38.0-50.0); VENOUS PH 7.364 UNITS (7.330-7.430); VENOUS STANDARD HCO3 23.1 MEQ/L; VENOUS TOTAL CO2 25.5 MEQ/L (24.0-28.0)
[2020-02-04] MEDS ORDERED: ONDANSETRON 4MG/2ML VIAL IV ONE (12:30)
[2020-02-04 12:35] LABS: BASO # 0.1 10^3/uL (0.0-0.2); BASO % 0.7 % (0.0-1.0); EOS # 0.2 10^3/uL (0.0-0.5); EOS % 1.4 % (0.0-3.0); HEMATOCRIT 48.6 % (36.0-47.0); HEMOGLOBIN 15.2 g/dl (12.0-15.5); LYMPH # 2.2 10^3/uL (1.5-5.0); MEAN CORPUSCULAR HEMOGLOBIN 26.3 pg (27.0-33.0); MEAN CORPUSCULAR HGB CONC 31.3 g/dl (32.0-36.5); MEAN CORPUSCULAR VOLUME 83.9 fl (80.0-96.0); MONO # 0.7 10^3/uL (0.0-0.8); MONO % 5.3 % (0.0-5.0); NEUTROPHILS % 73.9 % (36.0-66.0); PLATELET COUNT, AUTOMATED 371 10^3/uL (150-450); RED BLOOD COUNT 5.79 10^6/uL (4.00-5.40); WHITE BLOOD COUNT 12.2 10^3/uL (4.0-10.0)
[2020-02-04 13:01] VITALS: BP 126/63
[2020-02-04 13:01] LABS: ALBUMIN 3.3 GM/DL (3.2-5.2); ALT/SGPT 14 U/L (12-78); BILIRUBIN,DIRECT 0.1 MG/DL (0.0-0.2); BILIRUBIN,TOTAL 0.4 MG/DL (0.2-1.0); BLOOD UREA NITROGEN 22 MG/DL (7-18); CALCIUM LEVEL 9.2 MG/DL (8.5-10.1); CARBON DIOXIDE LEVEL 28 MEQ/L (21-32); CHLORIDE LEVEL 99 MEQ/L (98-107); CK-MB VALUE MASS 1.2 NG/ML (<3.6); CPK CREATINE PHOSPHOKINASE 30 U/L (26-192); CREATININE FOR GFR 1.37 MG/DL (0.55-1.30); GLOMERULAR FILTRATION RATE 43.1 (>51); GLUCOSE, FASTING 348 MG/DL (70-100); LIPASE 78 U/L (73-393); POTASSIUM SERUM 4.3 MEQ/L (3.5-5.1); SODIUM LEVEL 135 MEQ/L (136-145); TOTAL PROTEIN 7.7 GM/DL (6.4-8.2); TROPONIN I < 0.02 NG/ML (< 0.10)
[2020-02-04] MEDS ORDERED: GASTROGRAFIN SOLUTION 30ML PO SCH (13:45)
[2020-02-04] MEDS ORDERED: ZOFR4TAB16 PO (13:56)
--- NOTE | 2020-02-04 20:52 | ECGEPIP ---
[facility] - ED Test Date: 2020-02-04 Pat Name: TATIANNA LAMB Department: Room: - Gender: Female Plaster Pattern Caster: JRobin : [id number] Requested By: RYAN Puentes Order Number: [id number] Reading MD: Rena Lopez Measurements Intervals [place] Rate: 91 P: 57 ND: 167 QRS: 26 QRSD: 89 T: 79 QT: 377 QTc: 465 Interpretive Statements SINUS RHYTHM NONSPECIFIC T-WAVE ABNORMALITY DELAYED R PROGRESSION DECREASED RATE 12/30/19 Electronically Signed on 02-04-2020 20:51:59 EDT by Rena Lopez
== END 2020-02-04 13:48 | disposition left against medical advice (07) ==
LOC: M ED 11:52
DX: R11.10 Vomiting, unspecified (principal); Z53.9 Procedure and treatment not carried out, unspecified reason; E11.9 Type 2 diabetes mellitus without complications; I25.10 Atherosclerotic heart disease of native coronary artery without angina pectoris; I10 Essential (primary) hypertension; E78.5 Hyperlipidemia, unspecified; F17.200 Nicotine dependence, unspecified, uncomplicated; Z88.8 Allergy status to other drugs, medicaments and biological substances; Z79.4 Long term (current) use of insulin; Z79.51 Long term (current) use of inhaled steroids; Z79.899 Other long term (current) drug therapy
CPT/HCPCS: 36415; 80048; 80076; 81001; 82550; 82553; 82803; 83690; 85025; 87086; 93005; 93041; 96374; 99284; J2405

== ENCOUNTER 2020-02-04 23:45 | Emergency (ER) | payer OTHER ==
[~2020-02-04] VITALS: Ht 162.6 cm; Wt 72.7 kg
[~2020-02-04 23:45] MED LIST changes: +ZOFR4TAB16 PO
--- NOTE | 2020-02-05 00:47 | REPVR ---
PROCEDURE INFORMATION: Exam: XR Right Ankle Exam date and time: 02/05/2020 12:32 AM Age: 54 years old Clinical indication: Pain; Ankle; Right; Additional info: Distal fibula pain TECHNIQUE: Imaging protocol: XR Right ankle. Views: 3 or more views. COMPARISON: No relevant prior studies available. FINDINGS: Bones/joints: Normal bony alignment. No acute fracture. No asymmetric ankle mortise widening. Fifth metatarsal base is intact. No osteochondral lesion of the talar dome. No evidence of tarsal coalition. Bones appear diffusely demineralized. Well-defined plantar calcaneal spur, at the plantar aponeurosis insertion. Joint spaces are well maintained. Soft tissues: No focal soft tissue swelling. IMPRESSION: 1. No evidence of fracture, osseous malalignment, osteochondral lesion or significant arthropathy with particular attention to the lateral ankle. 2. Well-defined plantar calcaneal enthesophyte which can be associated with plantar aponeurosis symptoms. Electronically signed by: Aristides Hoffmann On 02/05/2020 00:47:03 AM
[2020-02-05] MEDS ORDERED: HEPARIN DRIP 25,000 UNITS in IV 1 EA IV SCH (01:12)
[2020-02-05] MEDS ORDERED: HEPARIN SOD (PORCINE) 5000UNITS/ML 1ML VIAL/SYRINGE IV ONE (01:15)
--- NOTE | 2020-02-05 01:27 | REPVR ---
PROCEDURE INFORMATION: Exam: US Duplex Right Lower Extremity Veins, Limited Exam date and time: 02/05/2020 1:17 AM Age: 54 years old Clinical indication: Pain; Leg, lower; Right; Additional info: Dvt study; Resolve R calf pain TECHNIQUE: Imaging protocol: Real-time Duplex ultrasound of the Right Lower Extremity with 2-D hale scale, color Doppler flow and spectral waveform analysis with image documentation. Limited exam was focused on the right lower extremity veins. COMPARISON: US Duplex, Ext LOWER veins, bilat 06/11/2015 1:12 PM FINDINGS: Right deep veins: Common femoral, femoral, proximal profunda femoral and popliteal veins are patent without thrombus. Normal Doppler waveforms. Normal compressibility and/or augmentation response. Right superficial veins: Saphenofemoral junction is patent without thrombus. Soft tissues: No abnormal focal fluid collection. IMPRESSION: No evidence of deep vein thrombosis. Electronically signed by: Aristides Hoffmann On 02/05/2020 01:27:09 AM
[2020-02-05 02:28] VITALS: BP 148/73
== END 2020-02-05 02:34 | disposition short-term general hospital (02) ==
LOC: M ED 23:45
DX: E11.51 Type 2 diabetes mellitus with diabetic peripheral angiopathy without gangrene (principal); I99.8 Other disorder of circulatory system; Z20.828 Contact with and (suspected) exposure to other viral communicable diseases; M77.31 Calcaneal spur, right foot; I10 Essential (primary) hypertension; E78.5 Hyperlipidemia, unspecified; F17.200 Nicotine dependence, unspecified, uncomplicated; Z88.1 Allergy status to other antibiotic agents; Z88.8 Allergy status to other drugs, medicaments and biological substances; Z79.899 Other long term (current) drug therapy
CPT/HCPCS: 73610; 93971; 96365; 99284; J1644; U0002

== ENCOUNTER 2020-02-18 11:31 | Emergency (ER) | payer OTHER ==
[~2020-02-18] VITALS: Ht 162.6 cm; Wt 77.3 kg
[2020-02-18 12:45] LABS: HEMATOCRIT 33.2 % (36.0-47.0); MEAN CORPUSCULAR HEMOGLOBIN 26.2 pg (27.0-33.0); MEAN CORPUSCULAR HGB CONC 30.1 g/dl (32.0-36.5); MEAN CORPUSCULAR VOLUME 87.1 fl (80.0-96.0); PLATELET COUNT, AUTOMATED 502 10^3/uL (150-450); RED BLOOD COUNT 3.81 10^6/uL (4.00-5.40); WHITE BLOOD COUNT 11.1 10^3/uL (4.0-10.0)
[2020-02-18] MEDS ORDERED: OXYC1TAB23 PO (12:51)
[2020-02-18] MEDS ORDERED: ESCI10TA2 PO (12:51)
[2020-02-18] MEDS ORDERED: TRUL0.5I SC (12:51)
[2020-02-18] MEDS ORDERED: OMEP40CA97 PO (12:59)
[2020-02-18 13:14] LABS: ALBUMIN 2.4 GM/DL (3.2-5.2); ALT/SGPT 34 U/L (12-78); BILIRUBIN,TOTAL 0.2 MG/DL (0.2-1.0); BLOOD UREA NITROGEN 10 MG/DL (7-18); CALCIUM LEVEL 8.9 MG/DL (8.5-10.1); CARBON DIOXIDE LEVEL 34 MEQ/L (21-32); CHLORIDE LEVEL 103 MEQ/L (98-107); CREATININE FOR GFR 0.58 MG/DL (0.55-1.30); GLOMERULAR FILTRATION RATE > 60.0 (>51); GLUCOSE, FASTING 113 MG/DL (70-100); SODIUM LEVEL 141 MEQ/L (136-145); TOTAL PROTEIN 6.4 GM/DL (6.4-8.2)
[2020-02-18 15:12] VITALS: BP 140/72
== END 2020-02-18 15:14 | disposition short-term general hospital (02) ==
LOC: EDBD 11:31 → M ED 11:31
DX: G89.18 Other acute postprocedural pain (principal); L08.9 Local infection of the skin and subcutaneous tissue, unspecified; Z20.828 Contact with and (suspected) exposure to other viral communicable diseases; E11.9 Type 2 diabetes mellitus without complications; I10 Essential (primary) hypertension; Z88.1 Allergy status to other antibiotic agents; Z88.8 Allergy status to other drugs, medicaments and biological substances; Z79.899 Other long term (current) drug therapy
CPT/HCPCS: 36415; 80053; 85027; 99284; U0002

== ENCOUNTER → 2020-03-29 | Outpatient (REF) | payer OTHER ==
[~2020-03-29] MED LIST changes: +ESCI10TA2 PO; +OXYC1TAB23 PO; +TRUL0.5I SC
[2020-03-29 12:38] LABS: BASO # 0.1 10^3/uL (0.0-0.2); EOS # 0.3 10^3/uL (0.0-0.5); EOS % 3.2 % (0.0-3.0); HEMOGLOBIN 13.7 g/dl (12.0-15.5); LYMPH # 2.1 10^3/uL (1.5-5.0); LYMPH % 21.7 % (24.0-44.0); MEAN CORPUSCULAR HEMOGLOBIN 26.2 pg (27.0-33.0); MEAN CORPUSCULAR HGB CONC 30.4 g/dl (32.0-36.5); MONO # 0.7 10^3/uL (0.0-0.8); MONO % 7.1 % (0.0-5.0); NEUTROPHILS # 6.3 10^3/uL (1.5-8.5); NEUTROPHILS % 66.3 % (36.0-66.0); PLATELET COUNT, AUTOMATED 286 10^3/uL (150-450); RED BLOOD COUNT 5.23 10^6/uL (4.00-5.40); WHITE BLOOD COUNT 9.5 10^3/uL (4.0-10.0)
[2020-03-29 13:03] LABS: ALBUMIN 2.9 GM/DL (3.2-5.2); ALT/SGPT 16 U/L (12-78); BILIRUBIN,TOTAL 0.3 MG/DL (0.2-1.0); BLOOD UREA NITROGEN 23 MG/DL (7-18); CALCIUM LEVEL 9.3 MG/DL (8.5-10.1); CARBON DIOXIDE LEVEL 28 MEQ/L (21-32); CHLORIDE LEVEL 108 MEQ/L (98-107); GLOMERULAR FILTRATION RATE > 60.0 (>51); GLUCOSE, FASTING 108 MG/DL (70-100); POTASSIUM SERUM 4.3 MEQ/L (3.5-5.1); SODIUM LEVEL 141 MEQ/L (136-145); TOTAL PROTEIN 6.6 GM/DL (6.4-8.2)
[2020-03-29 13:30] LABS: HEMOGLOBIN A1c 7.3 %
== END ==
LOC: M LAB REF 10:35
PROVIDERS: ATTEND Family Medicine
DX: E11.621 Type 2 diabetes mellitus with foot ulcer (principal)

== ENCOUNTER 2020-04-10 15:03 | Emergency (ER) | payer OTHER ==
[~2020-04-10] VITALS: Ht 162.6 cm; Wt 81.2 kg
[2020-04-10] MEDS ORDERED: HYDR-3713 (15:12)
[2020-04-10] MEDS ORDERED: NS 500 ML IV ONE ×2 (16:00→16:45)
[2020-04-10] MEDS ORDERED: MORPHINE 4 MG/ML 1ML VIAL/SYRINGE (J2270) IV ONE (16:00)
[2020-04-10 16:15] LABS: BASO # 0.1 10^3/uL (0.0-0.2); BASO % 0.6 % (0.0-1.0); EOS # 0.4 10^3/uL (0.0-0.5); EOS % 2.7 % (0.0-3.0); HEMATOCRIT 39.9 % (36.0-47.0); HEMOGLOBIN 12.8 g/dl (12.0-15.5); LYMPH # 2.2 10^3/uL (1.5-5.0); LYMPH % 13.7 % (24.0-44.0); MEAN CORPUSCULAR HEMOGLOBIN 26.9 pg (27.0-33.0); MEAN CORPUSCULAR HGB CONC 32.1 g/dl (32.0-36.5); MEAN CORPUSCULAR VOLUME 83.8 fl (80.0-96.0); MONO # 1.2 10^3/uL (0.0-0.8); MONO % 7.4 % (0.0-5.0); NEUTROPHILS # 12.3 10^3/uL (1.5-8.5); PLATELET COUNT, AUTOMATED 250 10^3/uL (150-450); RED BLOOD COUNT 4.76 10^6/uL (4.00-5.40); WHITE BLOOD COUNT 16.3 10^3/uL (4.0-10.0)
[2020-04-10 16:24] LABS: ALBUMIN 2.5 GM/DL (3.2-5.2); ALT/SGPT 20 U/L (12-78); BILIRUBIN,DIRECT < 0.1 MG/DL (0.0-0.2); BILIRUBIN,TOTAL 0.2 MG/DL (0.2-1.0); BLOOD UREA NITROGEN 17 MG/DL (7-18); CALCIUM LEVEL 8.1 MG/DL (8.5-10.1); CARBON DIOXIDE LEVEL 27 MEQ/L (21-32); CHLORIDE LEVEL 99 MEQ/L (98-107); GLOMERULAR FILTRATION RATE 55.5 (>51); GLUCOSE, FASTING 356 MG/DL (70-100); POTASSIUM SERUM 4.1 MEQ/L (3.5-5.1); SODIUM LEVEL 133 MEQ/L (136-145); TOTAL PROTEIN 6.3 GM/DL (6.4-8.2)
[2020-04-10] MEDS ORDERED: VANCOMYCIN HCL 1,500 MG in IV FLUID PLACE HOLDER 1 EA IV ONE (16:45)
[2020-04-10 16:51] LABS: VENOUS BASE EXCESS 0.3 (-2.0-2.0); VENOUS HCO3 26.5 MEQ/L (23.0-27.0); VENOUS PARTIAL PRESSURE CO2 49.5 mmHg (38.0-50.0); VENOUS PARTIAL PRESSURE O2 115.6 mmHg (30.0-50.0); VENOUS PH 7.347 UNITS (7.330-7.430); VENOUS STANDARD HCO3 24.7 MEQ/L; VENOUS TOTAL CO2 28.1 MEQ/L (24.0-28.0)
[2020-04-10 16:56] LABS: ERYTHROCYTE SEDIMENTATION RATE 82 mm/hr (0-30)
[2020-04-10] MEDS ORDERED: VANCOMYCIN HCL 750 MG, VIAL MATE ADAPTER 1 EACH in D5W 250 ML IV ONE ×2 (17:00→18:00)
--- NOTE | 2020-04-10 17:43 | REPVR ---
PROCEDURE INFORMATION: Exam: US Pelvis Limited, Transabdominal Exam date and time: 04/10/2020 5:22 PM Age: 54 years old Clinical indication: Pelvic pain; Prior surgery; Surgery date: 3-7 days post-operative; Surgery type: Vascular surgery, possible stent /graft; Additional info: Revascularization right groin wnd/ US for abscess-fluid TECHNIQUE: Imaging protocol: Real-time transabdominal pelvic ultrasound with image documentation. Limited exam. COMPARISON: US PELVIC NON-OB COMPLETE 05/19/2017 11:20 AM FINDINGS: Soft tissues: Imaging in the right inguinal region in the area of clinical concern demonstrates a heterogeneous complex fluid collection with internal echoes measuring 0.7 x 0.7 x 0.9 cm. No significant internal flow using Doppler interrogation. IMPRESSION: Small complex fluid collection in the right inguinal region. Finding may represent a postprocedural hematoma. Infection not excluded. Electronically signed by: Richard Herrera On 04/10/2020 17:43:08 PM
[2020-04-10] MEDS ORDERED: DULA4.5P SQ (18:39)
[2020-04-10] MEDS ORDERED: DULO1CAP6 PO (18:39)
[2020-04-10] MEDS ORDERED: PREG200C PO (18:39)
[2020-04-10] MEDS ORDERED: LEXA1TAB2 PO (18:39)
[2020-04-10 19:35] LABS: RSV AMPLIFICATION NEGATIVE (NEGATIVE)
[2020-04-10] MEDS ORDERED: MORPHINE 2 MG/ML 1ML VIAL (J2270) IV ONE (19:45)
[2020-04-10 21:37] VITALS: BP 105/56
== END 2020-04-10 21:44 | disposition short-term general hospital (02) ==
LOC: EEVIPCON 15:03 → M ED 15:03
DX: T81.40XA Infection following a procedure, unspecified, initial encounter (principal); R19.09 Other intra-abdominal and pelvic swelling, mass and lump; E11.621 Type 2 diabetes mellitus with foot ulcer; I25.10 Atherosclerotic heart disease of native coronary artery without angina pectoris; I25.2 Old myocardial infarction; Z95.1 Presence of aortocoronary bypass graft; I10 Essential (primary) hypertension; I73.9 Peripheral vascular disease, unspecified; E78.5 Hyperlipidemia, unspecified; G89.29 Other chronic pain; M54.9 Dorsalgia, unspecified; K85.90 Acute pancreatitis without necrosis or infection, unspecified; F17.200 Nicotine dependence, unspecified, uncomplicated; Z88.8 Allergy status to other drugs, medicaments and biological substances; Z79.899 Other long term (current) drug therapy; Z79.82 Long term (current) use of aspirin; Z79.4 Long term (current) use of insulin
CPT/HCPCS: 76857; 80048; 80076; 82803; 83605; 85025; 85652; 86140; 87040; 87070; 87077; 87186; 87205; 87631; 96361; 96365; 96366; 96375; 96376; 99284; J2270; J3370

== ENCOUNTER 2020-05-08 14:21 | Emergency (ER) | payer OTHER ==
[~2020-05-08] VITALS: Ht 162.6 cm; Wt 75.3 kg
[~2020-05-08 14:21] MED LIST changes: -BUPR150T3 PO; +BUPR150T4 PO; -CLIN150C14 PO; +CLIN150C15 PO; +DULA4.5P SQ; +DULO1CAP6 PO; +ESCI10TA16 PO; -ESCI10TA2 PO; +GABA-282 PO; -GABA-843 PO; +HYDR-3713; +LEXA1TAB2 PO; -LISI-542 PO; +LISI-898 PO; +PREG200C PO
[2020-05-08] MEDS ORDERED: NS 1,000 ML IV SCH (15:24)
[2020-05-08 15:58] LABS: VENOUS BASE EXCESS 2.6 (-2.0-2.0); VENOUS HCO3 27.6 MEQ/L (23.0-27.0); VENOUS O2 SATURATION 96.2 % (60.0-80.0); VENOUS PARTIAL PRESSURE CO2 43.7 mmHg (38.0-50.0); VENOUS PARTIAL PRESSURE O2 81.8 mmHg (30.0-50.0); VENOUS PH 7.418 UNITS (7.330-7.430); VENOUS STANDARD HCO3 26.7 MEQ/L; VENOUS TOTAL CO2 28.9 MEQ/L (24.0-28.0)
[2020-05-08 16:01] LABS: BASO # 0.1 10^3/uL (0.0-0.2); BASO % 0.9 % (0.0-1.0); EOS # 0.1 10^3/uL (0.0-0.5); EOS % 0.7 % (0.0-3.0); HEMATOCRIT 44.9 % (36.0-47.0); HEMOGLOBIN 14.8 g/dl (12.0-15.5); LYMPH # 1.3 10^3/uL (1.5-5.0); LYMPH % 14.9 % (24.0-44.0); MEAN CORPUSCULAR HEMOGLOBIN 26.6 pg (27.0-33.0); MEAN CORPUSCULAR VOLUME 80.6 fl (80.0-96.0); MONO # 0.3 10^3/uL (0.0-0.8); MONO % 3.5 % (0.0-5.0); NEUTROPHILS % 79.7 % (36.0-66.0); PLATELET COUNT, AUTOMATED 204 10^3/uL (150-450); RED BLOOD COUNT 5.57 10^6/uL (4.00-5.40); WHITE BLOOD COUNT 8.8 10^3/uL (4.0-10.0)
[2020-05-08 16:45] VITALS: BP 169/81
[2020-05-08 16:45] LABS: ACETONE/KETONE 7.26 MG/DL (<2.81); ALBUMIN 3.2 GM/DL (3.2-5.2); ALT/SGPT 15 U/L (12-78); BILIRUBIN,DIRECT 0.2 MG/DL (0.0-0.2); BILIRUBIN,TOTAL 0.4 MG/DL (0.2-1.0); BLOOD UREA NITROGEN 14 MG/DL (7-18); CALCIUM LEVEL 9.6 MG/DL (8.5-10.1); CARBON DIOXIDE LEVEL 30 MEQ/L (21-32); CHLORIDE LEVEL 99 MEQ/L (98-107); CK-MB VALUE MASS 2.1 NG/ML (<3.6); CPK CREATINE PHOSPHOKINASE 36 U/L (26-192); CREATININE FOR GFR 0.87 MG/DL (0.55-1.30); GLOMERULAR FILTRATION RATE > 60.0 (>51); GLUCOSE, FASTING 470 MG/DL (70-100); LIPASE 51 U/L (73-393); MB/CK RELATIVE INDEX 5.83 (< OR =4); POTASSIUM SERUM 4.1 MEQ/L (3.5-5.1); SODIUM LEVEL 135 MEQ/L (136-145); TOTAL PROTEIN 7.4 GM/DL (6.4-8.2); TROPONIN I < 0.02 NG/ML (< 0.10)
--- OUTSIDE RECORDS SUMMARY | 2020-05-08 16:54 | CCD | Continuity of Care Document ---
Author Author Shawna SANFORD MD Organization Unknown Address [address] [place] [address] [place] [address] Phone [phone] Care Team Providers Care Enterprise Sales Person Name Role Phone Cece Weber D.O. AUTM Emergency Department, [facility]M Problems Active Problems Provider Date Chronic obstructive lung disease Onset: 02/06/2020 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 Ons et: 01/24/2020 Note: Overview: Added automatically from request for surgery [id number] Coronary atherosclerosis Onset: 05/11/19 Note: Last Assessment & Plan: See dhiraj oliveira above Gastroesophageal reflux disease Onset: 0 12/27/2015 Note: Overview: controlled on PPI Heavy cigarette smoker (20-39 cigs/day) Onset: 02/06/2020 Note: Overview: since 18 yo Last Assessm ent & Plan: Patient is a heavy smoker and is working on cutting back. She was prescribed nicotine patches and Wellbutrin and plans to start both in the near future. She was counseled extensively on the benefits of smoking cessation and the risks of continued tobacco abuse. Hyperlipidemia Onset: 02/06/2020 Note: Last Assessment & Plan: Started on Atorvastatin 80mg 07/2019. She is tolerating medication without side effects. Due for repeat lipids. If LDL not <70 I recommend consideration to adding Zetia or PCSK9. Lipid order given to patient today Infection due to Pseudomonas aeruginosa Onset: 02/13/2020 Ischemia of right lower extremity Onset: 02/06/2020 Myocardial infarction Onset: 12/27/2015 Note: Last Assessment & Plan: S/P quintu ple coronary bypass graft 12/2015: Lovell to Lad, triple sequential graft to diagonal, Om1, and Om2, and single saphenous vein graft to very distal Rca. Cardiac catheterization revealed severe coronary disease including total Rca and total Lad lesion, ejection fraction of 40% to 46%. ECHO 12/2015: Ejection Fraction 50 %, apical anterior wall hypokinesis, aortic root sclerosis/calcificationl wih a round calcified nodule in the aortic wall of uncertain etiology. Echocardiogram 07/05/2019: Normal LV size with borderline LVH and overall mildly reduced left ventricular systolic function (Lvef 45-50%). There is akinesis of apical segment, distal septal and distal anterior wall. She remains free from angina. On Asa, Plavix, Acei and statin therapy. Neuropathy due to diabetes mellitus Onse t: 12/27/2015 Osteomyelitis of ankle AND/OR foot Onset : 02/07/2020 Peripheral vascular disease Onset: 11/19 Note: Last Assessment & Plan: Following closely with vascular. Smoking cessation strongly advised Preoperative state Onset: 04/11/2019 Note: Last Assessment & Plan: She has kn own CAD with hx of quintuple coronary bypass graft 12/2015. She denies any anginal symptoms. According to patient, her last evaluation for ischemia was within the last year (performed by Dr. Abreu) and results were negative. Unfortunately, we still do not have those records for review. From a cardiac standpoint she is fully optimized on her current GDMT. H owever, her DM appears to be poorly controlled with an A1c of 12.2. I will defer general medical clearance to her PCP Type 2 diabetes mellitus Onset: 02/06/20 20 Note: Last Assessment & Plan: Diabetes i s poorly controlled. Atherosclerosis of arteries of the extremities Onset: 02/20/2020 Coronary arteriosclerosis Onset: 020 Social History Type Date Description Comments Sex Unknown Tobacco Use Start: Unknown End: Unknown Former Cigarette Smo ker 1 Pack Daily ETOH Use 03/21/2020 Denies alcohol use Tobacco Use Reviewed: 04/24/20 Patient is a current smoker, smokes every day Smoking Status Reviewed: 04/24/20 Patient is a current smoker, smokes every day Allergies, Adverse Reactions, Alerts Active Allergies Reaction Severity Comments Date Canagliflozin Itching Mild 02/19/2020 Insulin Glargine Itching Moderate 02/19/2020 Medications Active Medications SIG Qnty Indications Ordering Provide r Date Protonix 40mg Tablets DR 1 by mouth every day 30tabs Dain Sanford MD 04/10/2020 Oxycodone-Acetaminophen 5-325mg Ta blets take 1 tablet by mouth every 4 hours as needed for pain. Reference #:[id number] 30tabraxton Lambert M.D. 03/21/2020 Bisacodyl Laxative 10mg Suppositor y Insert 1 suppository (10 mg total) into the rectum daily 12units Unknown 02/16/2020 Polyethylene Glycol 3350 17GM/Scoop Powder Take 17 g by mouth daily 14units Unknown Clopidogrel Bisulfate 75mg Tablets Take One Tablet By Mouth Every Day 90tabs Dain Sanford MD 07/26/2019 Lisinopril 5mg Tablets Take 5 mg by mouth daily Unknown 05/26/2019 Breo Ellipta 200-25mcg/Inh Aerosol Inhale 1 puff daily Unknown 02/16/2019 Pentoxifylline ER 400mg Tablets ER Take 400 mg by mouth 3 (three) times a day with meals Unknown 10/12/2015 Escitalopram Oxalate 10mg Tablets Take 10 mg by mouth daily Unknown Ondansetron 4mg Tablets Dispers Take 4 mg by mouth every 8 (eight) hours as needed for nausea Unknown Bupropion Hydrochloride ER (XL) 150mg Tablets ER 24HR Take 150 mg by mouth daily Unknown 0 Atorvastatin Calcium 80mg Tablets Take 80 mg by mouth daily Unknown Metoclopramide HCL 10mg Tablets Take 10 mg by mouth 2 (two) times a day Unknown Trulicity 1.5mg/0.5ML Solution Pen -Inject Inject 1.5 mg under the skin once a week on Wednesday Unknown Pregabalin 150mg Capsules Take 150 mg by mouth 2 (two) times a day Unknown Nystatin 484066Jivv/GM Powder Apply 1 application topically 2 (two) times a day as needed (for rash) Unknown Tresiba Flextouch 20 0Unit/ML Solution Pen-Inject Inject 50 Units under the skin 2 (two) times a day Unknown Ferrous Sulfate 324(65Fe) mg Table ts DR Take 325 mg by mouth daily with breakfast Unknow n Steglatro 15mg Tablets Take 15 mg by mouth daily Unknown Docusate Sodium 100mg Capsules Take 200 mg by mouth 2 (two) times a day as needed for constipation Unknown Cyclobenzaprine HCL 5mg Tablets Take 5 mg by mouth 2 (two) times a day as needed for muscle spasms Unknown Albuterol Sulfate HFA 108(90Base) mcg/Act Aerosol Inhale 2 puffs every 4 (four) hours as needed for shortness of breath Unknown Loratadine 10mg Tablets Take 10 mg by mouth daily Unknown History Medications Oxycodone-Acetaminophen 5-325mg Ta blets take 1-2 tablets by mouth every 6 hours as needed for pain 40tabs Dain Sanford MD 02/16/2020 - 03/20/2020 Sodium Chloride Flush 0.9% Solutio n Infuse 10 ml before and after dose and prn 450units Unknown 02/16/2020 - 03/20/2020 Heparin Sodium Lock Flush 100Unit/ML Solution Infuse 5 ml After dose and as needed to red lumen if applicable 450units Unknown 02/16/2020 - 03/20/2020 Meropenem-Sodium Chloride 1GM/50ML Solution Rec Infuse 2gm iv every 8 hours daily until 03/21/20 1units Unknown 02/16/2020 - 03/20/2020 Immunizations CPT Code Status Date Vaccine Lot # [id number] Given 12/27/2015 Pneumococcal Vaccine 2Yrs Or Older [id number] Given 12/27/2015 Influenza Virus Vaccine, Quadrivalent, Split, Preservative Free Vital Signs Date Vital Result Comment 04/24/2020 1:40pm BP Systolic Right Arm 96 mmHg BP Diastolic Right Arm 50 mmHg BP Systolic Left Arm 90 mmHg BP Diastolic Left Arm 60 mmHg Heart Rate 76 /min Height 64 inches 5'4" Weight 170.00 lb Weight 77.112 kg BMI (Body Mass Index) 29.2 kg/m2 03/21/2020 2:08pm BP Systolic Right Arm 90 mmHg BP Diastolic Right Arm 50 mmHg BP Systolic Left Arm 80 mmHg BP Diastolic Left Arm 50 mmHg Height 64 inches 5'4" Weight 170.00 lb Weight 77.112 kg BMI (Body Mass Index) 29.2 kg/m2 Results Test Acquired Date Facility Test Result H/L Range Note Poct glucose 04/15/2020 N2N/CCD Import Glucose, Poc 113 mg/dL High 70 - 99 1 Basic metabolic panel 04/15/2020 N2N/CCD Import Sodium 144 mmol/L 136 - 145 Potassium 4.2 mmol/L 3.6 - 5.2 Chloride 107 mmol/L 100 - 108 Co2 29 mmol/L 22 - 31 Anion Gap 8 mmol/L 7 - 16 Urea nitrogen 19 mg/dL 7 - 24 Creatinine 0.96 mg/dL 0.60 - 1.00 BUN/Creatinine Ratio 19.8 10.0 - 20.0 Ratio Glucose 246 mg/dL High 70 - 99 Calcium 9.0 mg/dL 8.4 - 10.2 GFR MDRD Non Af Amer >60 >59 ml/min/1.73m2 GFR MDRD Af Amer >60 >59 ml/min/1.73m2 Glom Filt Rate, Est See Notes 2 CBC 04/15/2020 N2N/CCD Import WBC 8.0 10*3/uL 4.1 - 11.0 RBC 4.62 10*6/uL 4.00 - 5.40 Hemoglobin 12.8 g/dL 12.0 - 16.0 Hematocrit 38.4 % 36.0 - 47.0 MCV 83.1 fL 80.0 - 95.0 MCH 27.7 pg 27.0 - 32.0 MCHC 33.4 g/dL 32.0 - 36.0 RDW 14.4 % 10.5 - 14.5 Platelets 243 10*3/uL 150 - 450 MPV 9.3 fL 7.1 - 10.7 Wound culture 04/14/2020 N2N/CCD Import Specimen Description Surgical Wound Special Requests None Gram Stain Result See Note 3 Culture Result See Note 4 Report Status 04/14/2020 Final Organism Beta Hemolytic Streptococci Group A Isolated Organism Staphylococcus Aureus Vancomycin, trough 04/13/2020 N2N/CCD Import Vancomycin Tr 14.9 ug/mL 10.0 - 20.0 Vancomycin, random 04/11/2020 N2N/CCD Import Vancomycin Rm 28.3 ug/mL 5 MRSA nasal screen by PCR 04/11/2020 N2N/CCD Import Specimen Description Nares MRSA by PCR Positive: Methicillin Resistant Staph Aureus By PCR Negative Comment See Notes 6 Hemoglobin A1c 04/11/2020 N2N/CCD Import Hemoglobin A1c 7.6 % High 4.0 - 6.0 7 Est. Average Glucose 171 mg/dL CMP 04/11/2020 N2N/CCD Import Sodium 137 mmol/L 136 - 145 Potassium 3.9 mmol/L 3.6 - 5.2 Chloride 104 mmol/L 100 - 108 Co2 31 mmol/L 22 - 31 Anion Gap 2 mmol/L Low 7 - 16 Urea nitrogen 17 mg/dL 7 - 24 Creatinine 0.97 mg/dL 0.60 - 1.00 BUN/Creatinine Ratio 17.5 10.0 - 20.0 Ratio Glucose 57 mg/dL Low 70 - 99 Calcium 9.1 mg/dL 8.4 - 10.2 Protein, Total 7.7 g/dL 6.4 - 8.2 Albumin 2.7 g/dL Low 3.5 - 4.6 Globulin 5.0 g/dL High 2.7 - 4.3 Alb/Glob ratio 0.5 Ratio Alkaline Phosphatase 206 U/L High 45 - 117 Bilirubin, Total 0.4 mg/dL 0.0 - 1.0 8 Ast 11 U/L 11 - 39 Alt 18 U/L 12 - 78 GFR MDRD Non Af Amer >60 >59 ml/min/1.73m2 GFR MDRD Af Amer >60 >59 ml/min/1.73m2 Glom Filt Rate, Est See Notes 9 Xray 03/21/2020 Main Office [phone] Arterial Ultrasound Lower Extremity Right <pending> Poct glucose 02/20/2020 N2N/CCD Import Glucose, Poc 192 mg/dL High 70 - 99 10 CBC 02/20/2020 N2N/CCD Import WBC 8.6 10*3/uL 4.1 - 11.0 RBC 3.69 10*6/uL Low 4.00 - 5.40 Hemoglobin 10.2 g/dL Low 12.0 - 16.0 Hematocrit 30.2 % Low 36.0 - 47.0 11 MCV 81.9 fL 80.0 - 95.0 MCH 27.8 pg 27.0 - 32.0 MCHC 33.9 g/dL 32.0 - 36.0 RDW 16.4 % High 10.5 - 14.5 Platelets 430 10*3/uL 150 - 450 MPV 7.7 fL 7.1 - 10.7 2018 nCoV Amplified 02/20/2020 N2N/CCD Import Specimen Description Nasopharyngeal Covid19 Result Not Detected Not Detected 12 Comment See Notes 13 First Test No Employed In [employer] No Symptomatic No Date Of Sympt Onset Not Applicable Hospitalized Yes Icu No Congregate Care Set No No Basic Metabolic Panel 02/19/2020 N2N/CCD Import Sodium 144 mmol/L 136 - 145 Potassium 4.1 mmol/L 3.6 - 5.2 Chloride 105 mmol/L 100 - 108 Co2 32 mmol/L High 22 - 31 Anion Gap 7 mmol/L 7 - 16 Urea nitrogen 11 mg/dL 7 - 24 Creatinine 0.60 mg/dL 0.60 - 1.00 BUN/Creatinine Ratio 18.3 10.0 - 20.0 Ratio Glucose 193 mg/dL High 70 - 99 Calcium 8.9 mg/dL 8.4 - 10.2 GFR MDRD Non Af Amer >60 >59 ml/min/1.73m2 GFR MDRD Af Amer >60 >59 ml/min/1.73m2 Glom Filt Rate, Est See Notes 14 Hemoglobin A1c 02/19/2020 N2N/CCD Import Hemoglobin A1c 8.3 % High 4.0 - 6.0 15 Est. Average Glucose 192 mg/dL Poct glucose 02/16/2020 N2N/CCD Import Glucose, Poc 315 mg/dL High 70 - 99 16 Basic metabolic panel 02/15/2020 N2N/CCD Import Sodium 142 mmol/L 136 - 145 Potassium 4.3 mmol/L 3.6 - 5.2 Chloride 107 mmol/L 100 - 108 Co2 33 mmol/L High 22 - 31 Anion Gap 2 mmol/L Low 7 - 16 Urea nitrogen 18 mg/dL 7 - 24 Creatinine 0.61 mg/dL 0.60 - 1.00 BUN/Creatinine Ratio 29.5 High 10.0 - 20.0 Ratio Glucose 224 mg/dL High 70 - 99 Calcium 8.6 mg/dL 8.4 - 10.2 GFR MDRD Non Af Amer >60 >59 ml/min/1.73m2 GFR MDRD Af Amer >60 >59 ml/min/1.73m2 Glom Filt Rate, Est See Notes 17 CBC 02/15/2020 N2N/CCD Import WBC 10.3 10*3/uL 4.1 - 11.0 RBC 3.33 10*6/uL Low 4.00 - 5.40 Hemoglobin 9.2 g/dL Low 12.0 - 16.0 Hematocrit 27.8 % Low 36.0 - 47.0 MCV 83.5 fL 80.0 - 95.0 MCH 27.6 pg 27.0 - 32.0 MCHC 33.1 g/dL 32.0 - 36.0 RDW 16.1 % High 10.5 - 14.5 Platelets 295 10*3/uL 150 - 450 MPV 8.4 fL 7.1 - 10.7 Type and screen 02/14/2020 N2N/CCD Import Specimen Expiration Date 02/13/2020 Patient Abo/Rh B Negative Antibody Screen Negative Testing site Performed AT [address] [place] [address] Blood bank comment See Notes 18 Unit Number [id number] Blood Component Type Leukopoor Red Cells (PT B) Unit Division 0 Unit status Rel From Alloc Transfusion status Ok To Transfuse Crossmatch Compatible Unit Number [id number] Blood Component Type Leukopoor Red Cells Unit Division 0 Unit status Rel From Alloc Transfusion status Ok To Transfuse Crossmatch Compatible 2019 nCoV Amplified 02/12/2020 N2N/CCD Import Specimen Description Nasopharyngeal Covid19 Result Not Detected Not Detected 19 Comment See Notes 20 First Test No Employed In [employer] No Symptomatic No Date Of Sympt Onset Not Applicable Hospitalized Yes Icu No Congregate Care Set No No Blood Culture Peripheral x 1 Set (2 bottles aerobi 0 N2N/CCD Import Specimen Description Peripheral 2 Special Requests None Culture Result No Growth 6 Days Report Status 02/11/2020 Final Vancomycin, trough 02/11/2020 N2N/CCD Import Vancomycin Tr 16.5 ug/mL 10.0 - 20.0 Magnesium 02/11/2020 N2N/CCD Import Magnesium 1.9 mg/dL 1.7 - 2.4 Anaerobic culture 02/10/2020 N2N/CCD Import Specimen Description Non-Surg Soft Tissue Swab Right Toe Wound Special Requests None Culture Result Few Peptostreptococcus Species Report Status 02/10/2020 Final Wound culture 02/09/2020 N2N/CCD Import Specimen Description Non-Surg Soft Tissue Swab Right Toe Wound Special Requests None Gram Stain Result See Note 21 Culture Result No Growth Report Status 02/09/2020 Final C-reactive protein 02/08/2020 N2N/CCD Import CRP 17.6 mg/dL High 0.0 - 0.5 Sedimentation rate, erythrocyte 02/08/2020 N2N/CCD Import Sed Rate 96 mm/h High 0 - 30 Hemoglobin A1c 02/07/2020 N2N/CCD Import Hemoglobin A1c 8.1 % High 4.0 - 6.0 22 Est. Average Glucose 186 mg/dL aPTT 02/07/2020 N2N/CCD Import aPTT 25.1 s 22.0 - 34.3 Protime-Inr 02/07/2020 N2N/CCD Import Protime 10.3 s 9.2 - 11.9 Inr 0.98 23 [facility] Histology 02/06/2020 N2N/CCD Import Histology See Note 24 Poc Arterial Blood Gas w Lytes 02/06/2020 N2N/CCD I mport Poc Temp 36.0C Poc Source Arterial Poc Fio2 50 CP Bypass Yes Poc pH 7.50 pH High 7.35 - 7.45 25 Poc pCO2 29.4 Low 32.0 - 48.0 MMHG 26 Poc pO2 122 High 83 - 108 MMHG 27 Poc Art O2 Sat 99 % 95 - 99 Poc Base Excess 0 0 - 3 Mmol/L Poc Hco3 22.9 21.0 - 29.0 Mmol/L Poc Total Co2 24 23.0 - 32.0 Mmol/L 28 Poc Hematocrit 37 % 36.0 - 47.0 Poc Sodium 136 136 - 145 Mmol/L Poc Potassium 3.6 3.6 - 5.2 Mmol/L Poc Ionized Calcium 4.3 Low 4.6 - 5.3 MG/DL Poc Glucose (iStat) 181 High 70 - 99 MG/DL Performed by: Performed By [facility] Clinical Staff CMP 02/05/2020 N2N/CCD Import Sodium 137 mmol/L 136 - 145 Potassium 4.0 mmol/L 3.6 - 5.2 Chloride 103 mmol/L 100 - 108 Co2 25 mmol/L 22 - 31 Anion Gap 9 mmol/L 7 - 16 Urea nitrogen 29 mg/dL High 7 - 24 Creatinine 1.27 mg/dL High 0.60 - 1.00 BUN/Creatinine Ratio 22.8 High 10.0 - 20.0 Ratio Glucose 274 mg/dL High 70 - 99 Calcium 9.1 mg/dL 8.4 - 10.2 Protein, Total 7.2 g/dL 6.4 - 8.2 Albumin 3.3 g/dL Low 3.5 - 4.6 Globulin 3.9 g/dL 2.7 - 4.3 Alb/Glob ratio 0.8 Ratio Alkaline Phosphatase 162 U/L High 45 - 117 Bilirubin, Total 0.3 mg/dL 0.0 - 1.0 29 Ast 13 U/L 11 - 39 Alt 15 U/L 12 - 78 GFR MDRD Non Af Amer 44 Low >59 ml/min/1.73m2 GFR MDRD Af Amer 53 Low >59 ml/min/1.73m2 Glom Filt Rate, Est See Notes 30 1 PERFORMED BY [facility] CLINICAL ST AFF 2 NORMAL KIDNEY FUNCTION OR MILD DISEASE - GFR >OR= 60 CHRONIC KIDNEY DISEASE - GFR 15 - 59 RENAL FAILURE - GFR <15 Est. GFR calculation based on the MDRD study equation, which assumes a steady state for creatinine. Est. GFR should not be used for medication dosing. 3 Many (>25/LPF) White Blood C ellsmoderate (5 To 10/Oif) Gram Positive Coccirare (<1/Oif) Gram Negative Rods 4 Many Beta Hemolytic Streptoc occi Group A Isolatedmany Staphylococcus Aureus(Note) Preliminary Culture Result Called To Carolyn On [facility] D4 AT 1147 On 04/12/20 19095. Note: Biochemical Identification Systems Were Set Up On Suspect Colonies To R/O Pathogens. 5 THERAPEUTIC RANGE IS ONLY AV AILABLE FOR PEAK AND TROUGH SPECIMENS. RANDOM LEVEL RESULTS MUST BE INTERPRETED BY THE PHYSICIAN. 6 RESULT(S) CALLED TO AND READ BACK BY [facility] AND EMAILED TO [facility] IC AT 0463 ON [id number] BY [id number]. 7 Performed using Siemens Vist a immunoassay. Care must be taken when interpreting HbA1c results in patients with a hemoglobin variant or decreased erythrocyte lifespan. Values 5.7 - 6.4% suggest prediabetes. Values >=6.5% are diagnostic for diabetes. REFERENCE: DIABETES CARE 2018: 41(S13-S27). PERFORMED AT [address] [place] [address] 8 PLEASE NOTE: Total bilirubin results may be falsely elevated in patients taking Eltrombopag. 9 NORMAL KIDNEY FUNCTION OR MILD DISEASE - GFR >OR= 60 CHRONIC KIDNEY DISEASE - GFR 15 - 59 RENAL FAILURE - GFR <15 Est. GFR calculation based on the MDRD study equation, which assumes a steady state for creatinine. Est. GFR should not be used for medication dosing. 10 PERFORMED BY [facility] [employer] ST AFF 11 PERFORMED AT [address] [place] [address] 12 THIS ASSAY AMPLIFIES AND DET ECTS THE TARGET RNA USING REAL-TIME PCR. NEGATIVE 2019_NCOV RT-PCR RESULTS DO NOT PRECLUDE 2019_NCOV INFECTION AND SHOULD NOT BE USED THE SOLE BASIS FOR PATIENT MANAGEMENT DECISIONS. 13 THE U.S. FDA HAS MADE THIS T EST AVAILABLE UNDER AN EMERGENCY USE AUTHORIZATION (EUA) FOR THE DETECTION AND/OR DIAGNOSIS OF THE VIRUS THAT CAUSES COVID-19. EMAILED TO [facility] IC AT 6584 ON [phone] 14 NORMAL KIDNEY FUNCTION OR MILD DISEASE - GFR >OR= 60 CHRONIC KIDNEY DISEASE - GFR 15 - 59 RENAL FAILURE - GFR <15 Est. GFR calculation based on the MDRD study equation, which assumes a steady state for creatinine. Est. GFR should not be used for medication dosing. 15 Performed using Siemens Urgent Careert a immunoassay. Care must be taken when interpreting HbA1c results in patients with a hemoglobin variant or decreased erythrocyte lifespan. Values 5.7 - 6.4% suggest prediabetes. Values >=6.5% are diagnostic for diabetes. REFERENCE: DIABETES CARE 2018: 41(S13-S27). PERFORMED AT [address] [facility] [id number] 16 PERFORMED BY [facility] ST AFF 17 NORMAL KIDNEY FUNCTION OR MILD DISEASE - GFR >OR= 60 CHRONIC KIDNEY DISEASE - GFR 15 - 59 RENAL FAILURE - GFR <15 Est. GFR calculation based on the MDRD study equation, which assumes a steady state for creatinine. Est. GFR should not be used for medication dosing. 18 BLOOD TYPE CONFIRMED. 19 THIS ASSAY AMPLIFIES AND DET ECTS THE TARGET RNA USING REAL-TIME PCR. NEGATIVE 2019_NCOV RT-PCR RESULTS DO NOT PRECLUDE 2019_NCOV INFECTION AND SHOULD NOT BE USED THE SOLE BASIS FOR PATIENT MANAGEMENT DECISIONS. 20 THE U.S. FDA HAS MADE THIS T EST AVAILABLE UNDER AN EMERGENCY USE AUTHORIZATION (EUA) FOR THE DETECTION AND/OR DIAGNOSIS OF THE VIRUS THAT CAUSES COVID-19. EMAILED RESULTS TO [facility] AT 7438 KU [id number]. [id number] 21 Few (<10/LPF) White Blood Ce llsmoderate (5 To 10/Oif) Gram Positive Cocci 22 Performed using Siemens Vist a immunoassay. Care must be taken when interpreting HbA1c results in patients with a hemoglobin variant or decreased erythrocyte lifespan. Values 5.7 - 6.4% suggest prediabetes. Values >=6.5% are diagnostic for diabetes. REFERENCE: DIABETES CARE 2018: 41(S13-S27). PERFORMED AT [address] [place] [address] 23 SUGGESTED THERAPEUTIC RANGES USING INR FOR STABILIZED ANTICOAGULATED PATIENTS: STANDARD DOSE THERAPY INR 2.0-3.0 DVT, PE, PREVENT DVT OR EMBOLISM HIGH DOSE THERAPY INR 2.5-3.5 PREVENT EMBOLISM FROM MECHANICAL HEART VALVE 24 [facility] [place] [facility] [address] [id number]# Surgical Pathology ReportAccession #:[id number]) ReceivedA: Contents of femoral artery rightClinical Diagnosis and HistoryClaudication Diagnosiscontents Of Femoral Artery, Right: Atherosclerotic Plaque (Gross Diagnosis). Gross DescriptionReceived in formalin, the specimen is labeled "contents of femoral arteryright" consists of fragmented white-johnson calcified atherosclerotic plaquemeasuring approximately 3-4 cm in aggregate. No sections submitted. Kalyanonly. jglgmm/gmm Reported: 02/06/2020Electronically Signed Out By Serjio Sandhu M.D. [facility] [place], [place] [address]bmzVkpdsxypn component performed at [facility], Histopathology, [address], [place], [address].[facility] at [facility], [address], [place], [address]. This report may includeimmunohistochemical or in-situ hybridization results. Testing wasdeveloped and the performance characteristics determined by [facility] as required by Clia '88. The Fda hasdetermined that approval for specific use is not necessary for clinicaluse. The quality of Hematoxylin and Eosin stains and as applicable, forall immunohist ochemical and/or special stains, including positive andnegative controls, were reviewed and considered appropriate.Icd codes I70.90CPT codesA: 82177F 25 TEMPERATURE CORRECTED VALUE 26 TEMPERATURE CORRECTED VALUE 27 TEMPERATURE CORRECTED VALUE 28 PERFORMED BY [facility]FF 29 PLEASE NOTE: Total bilirubin results may be falsely elevated in patients taking Eltrombopag. 30 NORMAL KIDNEY FUNCTION OR MILD DISEASE - GFR >OR= 60 CHRONIC KIDNEY DISEASE - GFR 15 - 59 RENAL FAILURE - GFR <15 Est. GFR calculation based on the MDRD study equation, which assumes a steady state for creatinine. Est. GFR should not be used for medication dosing. Procedures Date Code Description Status 03/21/2020 86363 Duplex Scan Lower Extremity, Com plete Bilateral Completed 02/12/2020 75394 Bypass Graft Other Than Vein Fem oral-Popliteal Completed 02/12/2020 87278 Bypass Graft W/Vein Femoral-Popl iteal Completed 02/12/2020 17456 Debridement Tissue/Muscle/Bone C ompleted 02/12/2020 99385 Debridement Skin/Tissue Complete d 02/09/2020 63056 Moderate Sedation Se rvices; Same Phys Intl 15 Mins; PT >= 5 Years Completed 02/09/2020 15114 Iliac Angioplasty-Each Additio C ompleted 02/09/2020 45583 Iliac Angioplasty-Initial Comple chanell 02/09/2020 11398 Catheter Introduction Aorta Comp leted 02/08/2020 52748 Remove Support Implant Deep Comp leted 02/08/2020 47268 Radiologic Exam, Chest, Single V iew Completed 02/08/2020 00450 MRI Lower Extremity Without Cont rast Completed 02/08/2020 68178 Electrocardiogram Complete Compl eted 02/07/2020 97345 MRI Lower Extremity Without Cont rast Completed 02/05/2020 63234 Electrocardiogram Complete Compl eted 02/05/2020 32144 Comp Tomogrp Angiog AB Aorta & Bilateral Iliofemoral LW Ext Runof Completed 02/05/2020 14290 Radiologic Exam, Chest, Single V iew Completed 02/05/2020 53099 Bypass Graft Other Than Vein Brianda ofemoral Completed 02/05/2020 23695 Bypass Graft Other Than Vein Fem oral-Popliteal Completed Medical Devices Description No Information Available Encounters Type Date Location Provider Dx Diagnosis Office Visit 04/24/2020 1:15p Main Office Dain Sanford MD Z48.8 12 Encntr for surgical aftcr following surgery on the circ sys I70.223 [facility] [place] arteries of ex trm w rest pain, bilateral legs Office Visit 03/21/2020 2:45p Main Office Howard Bledsoe Z48.812 Encntr for surgical aftcr following surgery on the circ sys Office Visit 03/04/2020 10:45a Main Office Dain Sanford MD I70.2 22 [facility] [place] arteries of extremities w rest pain, left leg Assessments Date Code Description Provider 04/24/2020 Z48.812 Encounter for surgic al aftercare following surgery on the circulatory system Dain Sanford MD 04/24/2020 I70.223 Atherosclerosis of n ative arteries of extremities with rest pain, bilateral legs Dain Sanford MD 03/21/2020 Z48.812 Encounter for surgic al aftercare following surgery on the circulatory system Sweta Bledsoe. 03/21/2020 I70.223 Atherosclerosis of n ative arteries of extremities with rest pain, bilateral legs Dain Sanford MD 03/21/2020 I70.223 Atherosclerosis of n ative arteries of extremities with rest pain, bilateral legs Vascular Lab 03/21/2020 Z48.812 Encounter for surgic al aftercare following surgery on the circulatory system Dain Sanford MD 03/21/2020 Z48.812 Encounter for surgic al aftercare following surgery on the circulatory system Vascular Lab 03/04/2020 I70.222 Atherosclerosis of n ative arteries of extremities with rest pain, left leg Dain Sanford MD 02/12/2020 I70.222 Atherosclerosis of n ative arteries of extremities with rest pain, left leg Dain Sanford MD 02/09/2020 I70.223 Atherosclerosis of n ative arteries of extremities with rest pain, bilateral legs Dain Sanford MD 02/09/2020 T82.856A Stenosis of peripheral vascular stent, initial encounter Dain Sanford MD 02/09/2020 M86.9 Osteomyelitis, unspecified Jenn Sanford MD 02/09/2020 Z95.828 Presence of other vascular impla nts and grafts Dain Sanford MD 02/09/2020 F17.200 Nicotine dependence, unspecified , uncomplicated Dain Sanford MD 02/05/2020 I70.221 Atherosclerosis of n ative arteries of extremities with rest pain, right leg Dain Sanford MD 02/05/2020 F17.200 Nicotine dependence, unspecified , uncomplicated Dain Sanford MD 02/05/2020 T82.856A Stenosis of peripheral vascular stent, initial encounter Dain Sanford MD 02/05/2020 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
--- OUTSIDE RECORDS SUMMARY | 2020-05-08 16:55 | CCD ---
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 Active 543481838 Problem Type 2 diabetes mellitus with foot ulcer E11.621 Active 852717580 Problem Non-pressure chronic ulcer o f other part of unspecified foot with unspecified severity L97.509 Active 322271734 Problem jail (current) use of insulin Z79.4 Activ e [id number] ALLERGIES No Known Allergies ENCOUNTERS from 1965 to 2020-04-16 Encounter Location Date Provider Diagnosis [address] [address] Mar, Kassandra Torres IMMUNIZATIONS Vaccine Route Administration Date Status Influenza (18 yrs & older) Flublok Unknown Jan 26, 2020 Others SOCIAL HISTORY Tobacco Use: Social History Observation Description Date Details (start date - stop date) Current Smoker Sex Assigned At : Social History Observation Description Sex Assigned At Unknown Education: Question Answer Notes Level of Education: Finished High School Language: Question Answer Notes Languages spoken: Taiwanese Synagogue: Question Answer Notes Synagogue No jainism beliefs that would impact health care. Alcohol Screening: Question Answer Notes Did you have a drink containing alcohol in the past year? No Points 0 Interpretation Negative Tobacco Use: Question Answer Notes Are you a: current smoker using patch/pill REASON FOR REFERRAL No Information VITAL SIGNS No information MEDICATIONS Medication SIG (Take, Route, Frequency, Duration) Notes Start Da te End Date Status Pentoxifylline - as directed Active Trulicity 0.75 MG/0.5ML as directed Subcutaneous Not-Taking Lyrica 150 MG 1 capsule Orally Once a day Active vicodin 1 tab Oral for 14 days No t-Taking Lexapro 10 MG 1 tablet Orally Once a day for 30 day(s) Active Tresiba 200 U/mL Not-Taki ng Aspirin 325 MG 1 tablet Orally Once a day for 30 day(s) Active Metronidazole 250 MG 1 tablet Orally Three times a day for 10 day(s) Active Multivitamin - 1 tablet Orally Once a day for 30 day(s) Active Cyclobenzaprine HCl 5 MG 1 tablet at bedtime as neede d Orally Once a day for 30 day(s) Not-Taking Oxycodone-Acetaminophen 5-325 MG 1 tablet as needed Orally every 6 hr s Active Lisinopril 5 MG 1 tablet Orally Once a day for 30 day(s) Active Loratadine 10 MG 1 tablet Orally Once a day for 30 day(s) Active Plavix 75 MG 1 tablet Orally Once a day for 30 day(s) Active Zofran 4 MG 1 tablet Orally Once a day for 30 day(s) Active Albuterol Sulfate (2.5 MG/3ML) 0.083% 3 ml as needed Inhalation ilene ry 6 hrs Not-Taking Ferrous Sulfate 325 (65 Fe) MG 1 tablet Orally Once a day for 30 day( s) Active Metoclopramide HCl 10 MG 1 tablet before meals Orally Twice a day for 30 day(s) Active Steglatro 15 MG 1 tablet Orally Once a day for 30 day(s) Active Ciprofloxacin HCl 750 MG 1 tablet Orally every 12 hrs for 10 day(s) Active BuPROPion HCl 100 MG 1 tablet Orally Twice a day for 30 day(s) Active Prilosec 10 MG as directed Orally Ac tive Docusate Sodium 100 MG 1 capsule as needed Orally Once a day for 30 day(s) Active Cymbalta 60 MG 1 capsule Orally Once a day for 30 day(s) Not-Taking Hydrocodone-Acetaminophen 5-325 MG 1 tablet as needed Orally every 6 hrs Active Atorvastatin Calcium 80 MG 1 tablet Orally Once a day for 30 day(s) Active Insulin Lispro 100 UNIT/ML as directed Subcutaneous Not-Taking Nystatin - as directed Not-Taking PROCEDURES No Information RESULTS No Results REASON FOR VISIT referral MEDICAL (GENERAL) HISTORY Type Description Date Medical History DM Medical History HTN Surgical History Debridment in OR with Dr. Talamantes 12/2019 Surgical History Triple Bypass 2015 Surgical History angioplasty 06/2019 Surgical History ANGIOPLASTY OF LT LEG 02/05/2020 Surgical History ANGIOPLASTY OF RT LEG 02/12/2020 Surgical History WIRE REPLACAEMENT IN HEART 02/06/2020 Surgical History LLE BYPASS 01/2020 Hospitalization History hyperglycemia 12/2019 Hospitalization History Diabetic coma 2015 Hospitalization History SURGERY RELATED 2019 Goals Section No Information Health Concerns No Information MEDICAL EQUIPMENT No Information MENTAL STATUS No Information FUNCTIONAL STATUS No Information ASSESSMENTS No Information PLAN OF TREATMENT Next Appt Details Provider Name:Krystian Spears, 10:30:00 AM, Yesika TOVAR, [place], [address], Insurance Providers Payer Name Payer Address Payer Phone Insured Name Patient Relati onship to Insured Coverage Start Date Coverage End Date [facility] [address] [facility] [phone] TATIANNA LAMB self
--- OUTSIDE RECORDS SUMMARY | 2020-05-08 16:55 | CCD ---
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 Active 397381391 Problem Type 2 diabetes mellitus with foot ulcer E11.621 Active 971163999 Problem Non-pressure chronic ulcer o f other part of unspecified foot with unspecified severity L97.509 Active 490445743 Problem ocean transportation intermediary (current) use of insulin Z79.4 Activ e [id number] ALLERGIES No Known Allergies ENCOUNTERS from 1965 to 2020-04-23 Encounter Location Date Provider Diagnosis [facility] [address] [place] [address] Apr Yesenia Luke IMMUNIZATIONS Vaccine Route Administration Date Status Influenza (18 yrs & older) Flublok Unknown Jan 26, 2020 Others SOCIAL HISTORY Tobacco Use: Social History Observation Description Date Details (start date - stop date) Current Smoker Sex Assigned At : Social History Observation Description Sex Assigned At Unknown Education: Question Answer Notes Level of Education: Finished High School Language: Question Answer Notes Languages spoken: Turkmen Muslim: Question Answer Notes Muslim No tenriism beliefs that would impact health care. Alcohol [...] Information RESULTS No Results REASON FOR VISIT WCC Apt MEDICAL (GENERAL) HISTORY Type Description Date Medical [...] Information ASSESSMENTS No Information PLAN OF TREATMENT No Information Insurance Providers Payer Name Payer Address Payer Phone Insured Name Patient Relati onship to Insured Coverage Start Date Coverage End Date [facility] COMM[facility]AN [facility] [address] [facility] [address] [phone] TATIANNA LAMB self
--- OUTSIDE RECORDS SUMMARY | 2020-05-08 16:55 | CCD | Continuity of Care Document ---
Author Author Shawna SANFORD MD Organization Unknown Address [address] [place] [address] [place] [address] Phone [phone] Care Team Providers Care Sales Architect Name Role Phone Cece Weber D.O. [facility] Emergency Department, [facility] Problems Active Problems Provider Date Chronic obstructive lung disease Onset: 02/06/2020 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 Ons et: 01/24/2020 Note: Overview: Added automatically from request for surgery [id number] Coronary atherosclerosis Onset: 05/11/19 Note: Last Assessment [...] 4 hours as needed for pain. Reference #:[id number] 30tabraxton Lambert M.D. 03/21/2020 Bisacodyl Laxative 10mg [...] 2 (two) times a day Unknown Nystatin [id number]/GM Powder Apply 1 application topically 2 (two) [...] CPT Code Status Date Vaccine Lot # [id number] Given 12/27/2015 Pneumococcal Vaccine 2Yrs Or Older 52546 Given 12/27/2015 Influenza Virus Vaccine, Quadrivalent, Split, [...] See Notes 9 Xray 03/21/2020 Main Office [phone] Arterial Ultrasound Lower Extremity Right <pending> Poct [...] Antibody Screen Negative Testing site Performed AT [address] [place] [address] Blood bank comment See Notes 18 Unit Number [id number] Blood Component Type Leukopoor Red Cells (PT B) Unit Division 0 Unit status Rel From Alloc Transfusion status Ok To Transfuse Crossmatch Compatible Unit Number [id number] Blood Component Type Leukopoor Red Cells Unit Division 0 Unit status Rel From Alloc Transfusion status Ok To Transfuse Crossmatch Compatible 2019 nCoV Amplified 02/12/2020 N2N/CCD Import Specimen Description Nasopharyngeal Covid19 Result Not Detected Not Detected 19 Comment See Notes 20 First Test No Employed In apprupt No Symptomatic No Date Of Sympt Onset [...] - 99 MG/DL Performed by: Performed By [facility] Clinical Staff CMP 02/05/2020 N2N/CCD Import Sodium [...] Est See Notes 30 1 PERFORMED BY [facility] CLINICAL ST AFF 2 NORMAL KIDNEY FUNCTION [...] Preliminary Culture Result Called To Carolyn On [facility] D4 AT 1147 On 04/12/20 35577. Note: Biochemical Identification Systems Were Set Up On Suspect Colonies To R/O Pathogens. 5 THERAPEUTIC RANGE IS ONLY AV AILABLE FOR PEAK AND TROUGH SPECIMENS. RANDOM LEVEL RESULTS MUST BE INTERPRETED BY THE PHYSICIAN. 6 RESULT(S) CALLED TO AND READ BACK BY MARIELLE [facility] D4 AND EMAILED TO [facility] IC AT 5071 ON [id number] [place] [address]. 7 Performed using Siemens Vist a immunoassay. Care must be taken when interpreting HbA1c results in patients with a hemoglobin variant or decreased erythrocyte lifespan. Values 5.7 - 6.4% suggest prediabetes. Values >=6.5% are diagnostic for diabetes. REFERENCE: DIABETES CARE 2018: 41(S13-S27). PERFORMED AT [address] [place] [address] 8 PLEASE NOTE: Total bilirubin results may [...] used for medication dosing. 10 PERFORMED BY [facility] [email or web address] ST AFF 11 PERFORMED AT [address] [place] [address] 12 THIS ASSAY AMPLIFIES AND DET ECTS THE TARGET RNA USING REAL-TIME PCR. NEGATIVE 2019_NCOV RT-PCR RESULTS DO NOT PRECLUDE 2019_NCOV INFECTION AND SHOULD NOT BE USED THE SOLE BASIS FOR PATIENT MANAGEMENT DECISIONS. 13 THE [place].S. FDA HAS MADE THIS T EST AVAILABLE UNDER AN EMERGENCY USE AUTHORIZATION (EUA) FOR THE DETECTION AND/OR DIAGNOSIS OF THE VIRUS THAT CAUSES COVID-19. EMAILED TO [facility] IC AT 2948 ON [phone] NORMAL KIDNEY FUNCTION OR MILD DISEASE - GFR >OR= 60 CHRONIC KIDNEY DISEASE - GFR 15 - 59 RENAL FAILURE - GFR <15 Est. GFR calculation based on the MDRD study equation, which assumes a steady state for creatinine. Est. GFR should not be used for medication dosing. 15 Performed using Siemens EcoDirectt a immunoassay. Care must be taken when interpreting HbA1c results in patients with a hemoglobin variant or decreased erythrocyte lifespan. Values 5.7 - 6.4% suggest prediabetes. Values >=6.5% are diagnostic for diabetes. REFERENCE: DIABETES CARE 2018: 41(S13-S27). PERFORMED AT [address] [facility] [address] 16 PERFORMED BY [facility] ST AFF 17 NORMAL KIDNEY FUNCTION [...] VIRUS THAT CAUSES COVID-19. EMAILED RESULTS TO [facility] AT 2399 [place] [phone] 21 Few (<10/LPF) White Blood Ce llsmoderate (5 To 10/Oif) Gram Positive Cocci 22 Performed using Siemens Vist a immunoassay. Care must be taken when interpreting HbA1c results in patients with a hemoglobin variant or decreased erythrocyte lifespan. Values 5.7 - 6.4% suggest prediabetes. Values >=6.5% are diagnostic for diabetes. REFERENCE: DIABETES CARE 2018: 41(S13-S27). PERFORMED AT [address] [place] [address] 23 SUGGESTED THERAPEUTIC RANGES USING INR FOR STABILIZED ANTICOAGULATED PATIENTS: STANDARD DOSE THERAPY INR 2.0-3.0 DVT, PE, PREVENT DVT OR EMBOLISM HIGH DOSE THERAPY INR 2.5-3.5 PREVENT EMBOLISM FROM MECHANICAL HEART VALVE 24 Laboratory [place] [facility] [address] [address]Hjm# Surgical Pathology ReportAccession #:[id number]) ReceivedA: Contents of femoral artery rightClinical Diagnosis and HistoryClaudication Diagnosiscontents Of Femoral Artery, Right: Atherosclerotic Plaque (Gross Diagnosis). Gross DescriptionReceived in formalin, the specimen is labeled "contents of femoral arteryright" consists of fragmented white-johnson calcified atherosclerotic plaquemeasuring approximately 3-4 cm in aggregate. No sections submitted. Kalyanonly. jglgmm/gmm Reported: 02/06/2020Electronically Signed Out By Serjio Sandhu M.D. [facility] [place], [place] [address]nnaSkscaqvhi component performed at [facility], Histopathology, [address], [place], [address].Reported at [facility], [address] [place], [place], [address]. This report may includeimmunohistochemical or in-situ hybridization results. Testing wasdeveloped and the performance characteristics determined by [facility] as required by Clia '88. The Fda hasdetermined that approval for specific use is not necessary for clinicaluse. The quality of Hematoxylin and Eosin stains and as applicable, forall immunohist ochemical and/or special stains, including positive andnegative controls, were reviewed and considered appropriate.Icd codes I70.90CPT codesA: 79345D 25 TEMPERATURE CORRECTED VALUE 26 TEMPERATURE CORRECTED VALUE 27 TEMPERATURE CORRECTED VALUE 28 PERFORMED BY [facility] CLINICAL ST AFF 29 PLEASE NOTE: Total [...] dosing. Procedures Date Code Description Status 03/21/2020 58482 Duplex Scan Lower Extremity, Com plete Bilateral Completed 02/12/2020 30895 Bypass Graft Other Than Vein Fem oral-Popliteal Completed 02/12/2020 32163 Bypass Graft W/Vein Femoral-Popl iteal Completed 02/12/2020 60300 Debridement Tissue/Muscle/Bone C ompleted 02/12/2020 76466 Debridement Skin/Tissue Complete d 02/09/2020 33258 Moderate Sedation Se rvices; Same Phys Intl 15 Mins; PT >= 5 Years Completed 02/09/2020 80676 Iliac Angioplasty-Each Additio C ompleted 02/09/2020 33463 Iliac Angioplasty-Initial Comple chanell 02/09/2020 45863 Catheter Introduction Aorta Comp leted 02/08/2020 84116 Remove Support Implant Deep Comp leted 02/08/2020 69747 Radiologic Exam, Chest, Single V iew Completed 02/08/2020 47184 MRI Lower Extremity Without Cont rast Completed 02/08/2020 36493 Electrocardiogram Complete Compl eted 02/07/2020 42034 MRI Lower Extremity Without Cont rast Completed 02/05/2020 16941 Electrocardiogram Complete Compl eted 02/05/2020 98931 Comp Tomogrp Angiog AB Aorta & Bilateral Iliofemoral LW Ext Runof Completed 02/05/2020 80724 Radiologic Exam, Chest, Single V iew Completed 02/05/2020 34742 Bypass Graft Other Than Vein Brianda ofemoral Completed 02/05/2020 03034 Bypass Graft Other Than Vein Fem oral-Popliteal Completed Medical Devices Description No Information Available Encounters Type Date Location Provider Dx Diagnosis Office Visit 04/24/2020 1:15p Main Office Dain Sanford MD I70.2 23 [place] arteries of extrm w rest pain, bilateral legs I70.222 [place] arteries of ex tremities w rest pain, left leg Office Visit 03/21/2020 2:45p Main Office Howard Bledsoe Z48.812 Encntr for surgical aftcr following surgery on the circ sys Office Visit 03/04/2020 10:45a Main Office Dain Sanford MD I70.2 22 [place] arteries of extremities w rest pain, left leg Assessments Date Code Description Provider 04/24/2020 I70.223 Atherosclerosis of n ative arteries of extremities with rest pain, bilateral legs Dain Sanford MD 04/24/2020 I70.222 Atherosclerosis of n ative arteries of extremities with rest pain, left leg Dain Sanford MD 03/21/2020 Z48.812 Encounter for [...] Main Office 04/24/2020 - Dain Sanford MD* I70.223 [place] arteries of extrm w rest pain, bilateral legs * I70.222 [place] arteries of extremities w rest pain, left leg * * New Xrays:* Arterial Ultrasound Lower Extremity Bilateral, Scheduled: 04/24/20 * Follow up:* june with bilateral arterial ultrasounds Functional Status Description No Information Available Mental Status Description No Information Available Referrals Description No Information Available
--- OUTSIDE RECORDS SUMMARY | 2020-05-08 16:55 | CCD ---
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 Active 283681167 Problem Type 2 diabetes mellitus with foot ulcer E11.621 Active 136163017 Problem Non-pressure chronic ulcer o f other part of unspecified foot with unspecified severity L97.509 Active 220740539 Problem intermediate card tender (current) use of insulin Z79.4 Activ e [id number] ALLERGIES No Known Allergies ENCOUNTERS from 1965 to 2020-04-16 Encounter Location Date Provider Diagnosis [facility] [address] [place] [address] Mar Yesenia Luke Type 2 diabetes mellitus with foot ulcer E11.621 ; Non-pressure chronic ulcer of left heel and midfoot with necrosis of muscle L97.423 ; Non-pressure chronic ulcer of other part of right foot with necrosis of muscle L97.513 ; Dehiscence of operative wound, subsequent encounter T81.31XD and Abscess of buttock L02.31 IMMUNIZATIONS Vaccine Route Administration Date Status Influenza (18 yrs & older) Flublok Unknown Jan 26, 2020 Others SOCIAL HISTORY Tobacco Use: Social History Observation Description Date Details (start date - stop date) Current Smoker Sex Assigned At : Social History Observation Description Sex Assigned At Unknown Education: Question Answer Notes Level of Education: Finished High School Language: Question Answer Notes Languages spoken: Lithuanian Yarsani: Question Answer Notes Yarsani No tenriism beliefs that would impact health care. Alcohol Screening: Question Answer Notes Did you have a drink containing alcohol in the past year? No Points 0 Interpretation Negative Tobacco Use: Question Answer Notes Are you a: current smoker using patch/pill REASON FOR REFERRAL No Information VITAL SIGNS Weight 170 lbs Mar, Weight-kg PER PT kg Mar, Height 64 in Mar, BMI 29.18 kg/m2 Mar, Heart Rate 93 /min Mar, Respiratory Rate 18 /min Mar, Temperature 96 degrees Fahrenheit Mar, Oximetry 98 Mar, Blood pressure systolic 156 mm Hg Mar, Blood pressure diastolic 91 mm Hg Mar, MEDICATIONS Medication SIG (Take, Route, Frequency, Duration) [...] Not-Taking Nystatin - as directed Not-Taking PROCEDURES from 1965 to 2020-04-16 Procedure Date Ordered Result Body Site LIDOCAINE 4% CREAM TOPICAL 2020-04-05 N/A RESULTS No Results REASON FOR VISIT BLE wounds MEDICAL (GENERAL) HISTORY Type Description Date Medical [...] No Information FUNCTIONAL STATUS No Information ASSESSMENTS Encounter Date Diagnosis Assessment Notes Treatment Notes Treatm ent Clinical Notes Mar, Type 2 diabetes mellitus with foot ulcer (ICD-10 - E11.621) Mar, 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 EC VASHE LOT [id number] EXP 08/2020 APPLIED TO LEFT HEEL WOUND FOR 10 MINUTE SOAK. EC XYLOCAINE HCL 2% LOT:[id number] EXP:12/09 2ML INJECTED BY HARLAN PLAN OF TREATMENT Next Appt Details 1 Week Reason: Provider Name:Krystian Spears, 10:30:00 AM, [address] [place], [address], Insurance Providers Payer Name Payer Address Payer Phone Insured Name Patient Relati onship to Insured Coverage Start Date Coverage End Date [facility] COMMUN[facility] PLAN [facility] [address] [facility] [phone] TATIANNA LAMB self
--- OUTSIDE RECORDS SUMMARY | 2020-05-08 17:01 | CCD ---
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 Care Track Man Name Role Phone Concepción MCCARTY DPM Unavailable Unavailable Concepción MCCARTY DPM Unavailable Unavailable Concepción MCCARTY DPM Unavailable Unavailable Concepción MCCARTY DPM Unavailable Unavailable Cnocepción MCCARTY DPM Unavailable Unavailable Concepción MCCARTY DPM Unavailable Unavailable Concepción MCCARTY DPM Unavailable Unavailable Concepción MCCARTY DPM Unavailable Unavailable Concepción MCCARTY DPM Unavailable Unavailable Concepción MCCARTY DPM Unavailable Unavailable Concepción MCCARTY DPM Unavailable Unavailable MAJAK, R FLORECITA DPM Unavailable Unavailable MAJAK, R FLORECITA DPM Unavailable Unavailable MAJAK, R FLORECITA DPM Unavailable Unavailable MAJAK, R FLORECITA DPM Unavailable Unavailable MAJAK, R FLORECITA DPM Unavailable Unavailable MAJAK, R FLORECITA DPM Unavailable Unavailable MAJAK, R FLORECITA DPM Unavailable Unavailable MAJAK, R FLORECITA DPM Unavailable Unavailable MAJAK, R FLORECITA DPM Unavailable Unavailable MAJAK, R FLORECITA DPM Unavailable Unavailable MAJAK, R FLORECITA DPM Unavailable Unavailable MAJAK, R FLORECITA DPM Unavailable Unavailable MAJAK, R FLORECITA DPM Unavailable Unavailable MAJAK, R FLORECITA DPM Unavailable Unavailable MAJAK, R FLORECITA DPM Unavailable Unavailable MAJAK, R FLORECITA DPM Unavailable Unavailable MAJAK, R FLORECITA DPM Unavailable Unavailable MAJAK, R FLORECITA DPM Unavailable Unavailable MAJAK, R FLORECITA DPM Unavailable Unavailable Fons, M Karen HARDBOARD SUPERVISOR Unavailable Unavailable Fons, M Karen HARDBOARD SUPERVISOR Unavailable Unavailable Fons, M Karen HARDBOARD SUPERVISOR Unavailable Unavailable Fons, M Karen HARDBOARD SUPERVISOR Unavailable Unavailable Fons, M Karen HARDBOARD SUPERVISOR Unavailable Unavailable Fons, M Karen HARDBOARD SUPERVISOR Unavailable Unavailable Fons, M Karen HARDBOARD SUPERVISOR Unavailable Unavailable Fons, M Karen HARDBOARD SUPERVISOR Unavailable Unavailable Fons, M Karen HARDBOARD SUPERVISOR Unavailable Unavailable Fons, M Karen HARDBOARD SUPERVISOR Unavailable Unavailable Fons, M Karen HARDBOARD SUPERVISOR Unavailable Unavailable Fons, M Karen HARDBOARD SUPERVISOR Unavailable Unavailable Fons, M Karen HARDBOARD SUPERVISOR Unavailable Unavailable Fons, M Karen HARDBOARD SUPERVISOR Unavailable Unavailable Fons, M Karen HARDBOARD SUPERVISOR Unavailable Unavailable Fons, M Karen HARDBOARD SUPERVISOR Unavailable Unavailable Fons, M Karen HARDBOARD SUPERVISOR Unavailable Unavailable Fons, M Karen HARDBOARD SUPERVISOR Unavailable Unavailable Fons, M Karen HARDBOARD SUPERVISOR Unavailable Unavailable Fons, M Karen HARDBOARD SUPERVISOR Unavailable Unavailable Fons, M Karen HARDBOARD SUPERVISOR Unavailable Unavailable Fons, M Karen HARDBOARD SUPERVISOR Unavailable Unavailable Fons, M Karen HARDBOARD SUPERVISOR Unavailable Unavailable Fons, M Karen HARDBOARD SUPERVISOR Unavailable Unavailable Fons, M Karen HARDBOARD SUPERVISOR Unavailable Unavailable Fons, M Karen HARDBOARD SUPERVISOR Unavailable Unavailable Fons, M Karen HARDBOARD SUPERVISOR Unavailable Unavailable Fons, M Karen HARDBOARD SUPERVISOR Unavailable Unavailable Fons, M Karen HARDBOARD SUPERVISOR Unavailable Unavailable Fons, M Karen HARDBOARD SUPERVISOR Unavailable Unavailable Fons, M Karen HARDBOARD SUPERVISOR Unavailable Unavailable Fons, M Karen HARDBOARD SUPERVISOR Unavailable Unavailable Fons, M Karen HARDBOARD SUPERVISOR Unavailable Unavailable Fons, M Karen HARDBOARD SUPERVISOR Unavailable Unavailable Fons, M Karen HARDBOARD SUPERVISOR Unavailable Unavailable Fons, M Karen HARDBOARD SUPERVISOR Unavailable Unavailable Fons, M Karen HARDBOARD SUPERVISOR Unavailable Unavailable Fons, M Karen HARDBOARD SUPERVISOR Unavailable Unavailable Fons, M Karen HARDBOARD SUPERVISOR Unavailable Unavailable Fons, M Karen HARDBOARD SUPERVISOR Unavailable Unavailable Fons, M Karen HARDBOARD SUPERVISOR Unavailable Unavailable Fons, M Karen HARDBOARD SUPERVISOR Unavailable Unavailable Fons, M Karen HARDBOARD SUPERVISOR Unavailable Unavailable Fons, M Karen HARDBOARD SUPERVISOR Unavailable Unavailable Fons, M Karen HARDBOARD SUPERVISOR Unavailable Unavailable Fons, M Karen HARDBOARD SUPERVISOR Unavailable Unavailable Fons, M Karen HARDBOARD SUPERVISOR Unavailable Unavailable Fons, M Karen HARDBOARD SUPERVISOR Unavailable Unavailable Fons, M Karen HARDBOARD SUPERVISOR Unavailable Unavailable Fons, M Karen HARDBOARD SUPERVISOR Unavailable Unavailable Fons, M Karen HARDBOARD SUPERVISOR Unavailable Unavailable Fons, M Karen HARDBOARD SUPERVISOR Unavailable Unavailable Fons, M Karen HARDBOARD SUPERVISOR Unavailable Unavailable Fons, M Karen HARDBOARD SUPERVISOR Unavailable Unavailable SEMEL, Harris PETER MD Unavailable Unavailable SEMEL, Harris PETER MD Unavailable Unavailable SEMEL, Harris PETER MD Unavailable Unavailable SEMEL, Harris PETER MD Unavailable Unavailable SEMEL, Harris PETER MD Unavailable Unavailable SEMEL, Harris PETER MD Unavailable Unavailable SEMEL, Harris PETER MD Unavailable Unavailable SEMEL, Harris PETER MD Unavailable Unavailable SEMEL, Harris PETER MD Unavailable Unavailable SEMEL, Harris PETER MD Unavailable Unavailable SEMEL, Harris PETER MD Unavailable Unavailable SEMEL, Harris PETER MD Unavailable Unavailable SEMEL, Harris PETER MD Unavailable Unavailable SEMEL, Harris PETER MD Unavailable Unavailable SEMEL, Harris PETER MD Unavailable Unavailable SEMEL, Harris PETER MD Unavailable Unavailable SEMEL, Harris PETER MD Unavailable Unavailable SEMEL, Harris PETER MD Unavailable Unavailable SEMEL, Harris EPTER MD Unavailable Unavailable SEMEL, Harris PETER MD Unavailable Unavailable SEMEL, Harris PETER MD Unavailable Unavailable SEMEL, Harris PETER MD Unavailable Unavailable SEMEL, Harris PETER MD Unavailable Unavailable SEMEL, Harris PETER MD Unavailable Unavailable SEMEL, Harris PETER MD Unavailable Unavailable SEMEL, Harris PETER MD Unavailable Unavailable SEMEL, Harris PETER MD Unavailable Unavailable SEMEL, Harris PETER MD Unavailable Unavailable SEMEL, Harris PETER MD Unavailable Unavailable SEMEL, Harris PETER MD Unavailable Unavailable SEMEL, Harris PETER MD Unavailable Unavailable SEMEL, Harris PETER MD Unavailable Unavailable SEMEL, Harris PETER MD Unavailable Unavailable SEMEL, Harris PETER MD Unavailable Unavailable SEMEL, Harris PETER MD Unavailable Unavailable SEMEL, Harris PETER MD Unavailable Unavailable SEMEL, Harris PETER MD Unavailable Unavailable SEMEL, aHrris PETER MD Unavailable Unavailable SEMEL, Harris PETER MD Unavailable Unavailable SEMEL, Harris PETER MD Unavailable Unavailable SEMEL, Harris PETER MD Unavailable Unavailable SEMEL, Harris PETER MD Unavailable Unavailable SEMEL, Harris PETER MD Unavailable Unavailable SEMEL, Harris PETER MD Unavailable Unavailable SEMEL, Harris PETER MD Unavailable Unavailable SEMEL, Harris PETER MD Unavailable Unavailable SEMEL, Harris PETER MD Unavailable Unavailable SEMEL, Harris PETER MD Unavailable Unavailable SEMEL, Harris PETER MD Unavailable Unavailable SEMEL, Harris PETER MD Unavailable Unavailable SEMEL, Harris PETER MD Unavailable Unavailable SEMEL, Harris PETER MD Unavailable Unavailable SEMEL, Harris PETER MD Unavailable Unavailable SEMEL, Harris PETER MD Unavailable Unavailable SEMEL, Harris PETER MD Unavailable Unavailable SEMEL, Harris PETER MD Unavailable Unavailable SEMEL, Harris PETER MD Unavailable Unavailable SEMEL, Harris PETER MD Unavailable Unavailable SEMEL, Harris PETER MD Unavailable Unavailable SEMEL, Harris PETER MD Unavailable Unavailable SEMEL, Harris PETER MD Unavailable Unavailable SEMEL, Harris PETER MD Unavailable Unavailable SEMEL, Harris PETER MD Unavailable Unavailable SEMEL, Harris PETER MD Unavailable Unavailable SEMEL, Harris PETER MD Unavailable Unavailable SEMEL, Harris PETER MD Unavailable Unavailable SEMEL, Harris PETER MD Unavailable Unavailable SEMEL, Harris PETER MD Unavailable Unavailable SEMEL, Harris PETER MD Unavailable Unavailable SEMEL, Harris PETER MD Unavailable Unavailable SEMEL, Harris PETER MD Unavailable Unavailable SEMEL, Harris PETER MD Unavailable Unavailable SEMEL, Harris PETER MD Unavailable Unavailable SEMEL, Harris PETER MD Unavailable Unavailable SEMEL, Harris PETER MD Unavailable Unavailable SEMEL, Harris PETER MD Unavailable Unavailable SEMEL, Harris PETER MD Unavailable Unavailable SEMEL, Harris PETER MD Unavailable Unavailable SEMEL, Harris PETER MD Unavailable Unavailable SEMEL, Harris PETER MD Unavailable Unavailable SEMEL, Harris PETER MD Unavailable Unavailable SEMEL, Harris PETER MD Unavailable Unavailable SEMEL, Harris PETER MD Unavailable Unavailable SEMEL, Harris PETER MD Unavailable Unavailable SEMEL, Harris PETER MD Unavailable Unavailable SEMEL, Harris PETER MD Unavailable Unavailable SEMEL, Harris PETER MD Unavailable Unavailable SEMEL, Harris PETER MD Unavailable Unavailable SEMEL, Harris PETER MD Unavailable Unavailable SEMEL, Harris PETER MD Unavailable Unavailable SEMEL, Harris PETER MD Unavailable Unavailable SEMEL, Harris PETER MD Unavailable Unavailable SEMEL, Harris PETER MD Unavailable Unavailable SEMEL, Harris PETER MD Unavailable Unavailable SEMEL, Harris PETER MD Unavailable Unavailable SEMEL, Harris PETER MD Unavailable Unavailable SEMEL, Harris PETER MD Unavailable Unavailable SEMEL, Harris PETER MD Unavailable Unavailable SEMEL, Harris PETER MD Unavailable Unavailable SEMEL, Harris PETER MD Unavailable Unavailable SEMEL, Harris PETER MD Unavailable Unavailable SEMEL, Harris PETER MD Unavailable Unavailable SEMEL, Harris PETER MD Unavailable Unavailable SEMEL, Harris PETER MD Unavailable Unavailable SEMEL, Harris PETRE MD Unavailable Unavailable SEMEL, Harris PETER MD Unavailable Unavailable SEMEL, Harris PETER MD Unavailable Unavailable SEMEL, Harris PETER MD Unavailable Unavailable SEMEL, Harris PETER MD Unavailable Unavailable SEMEL, Harris PETER MD Unavailable Unavailable SEMEL, Harris PETER MD Unavailable Unavailable SEMEL, Harris PETER MD Unavailable Unavailable SEMEL, Harris PETER MD Unavailable Unavailable SEMEL, Harris PETER MD Unavailable Unavailable SEMEL, Harris PETER MD Unavailable Unavailable SEMEL, Harris PETER MD Unavailable Unavailable SEMEL, Harris PETER MD Unavailable Unavailable SEMEL, Harris PETER MD Unavailable Unavailable SEMEL, Harris PETER MD Unavailable Unavailable SEMEL, Harris PETER MD Unavailable Unavailable TONTARSKI, G PRADEEP PA Unavailable Unavailable TONTARSKI, G PRADEEP PA Unavailable Unavailable TONTARSKI, G PRADEEP PA Unavailable Unavailable TONTARSKI, G PRADEEP PA Unavailable Unavailable TONTARSKI, G PRADEEP PA Unavailable Unavailable TONTARSKI, G PRADEEP PA Unavailable Unavailable TONTARSKI, G PRADEEP PA Unavailable Unavailable TONTARSKI, G PRADEEP PA Unavailable Unavailable TONTARSKI, G PRADEEP PA Unavailable Unavailable TONTARSKI, G PRADEEP PA Unavailable Unavailable TONTARSKI, G PRADEEP PA Unavailable Unavailable TONTARSKI, G PRADEEP PA Unavailable Unavailable TONTARSKI, G PRADEEP PA Unavailable Unavailable TONTARSKI, G PRADEEP PA Unavailable Unavailable TONTARSKI, G PRADEEP PA Unavailable Unavailable TONTARSKI, G PRADEEP PA Unavailable Unavailable TONTARSKI, G PRADEEP PA Unavailable Unavailable TONTARSKI, G PRADEEP PA Unavailable Unavailable TONTARSKI, G PRADEEP PA Unavailable Unavailable TONTARSKI, G PRADEEP PA Unavailable Unavailable TONTARSKI, G PRADEEP PA Unavailable Unavailable TONTARSKI, G PRADEEP PA Unavailable Unavailable TONTARSKI, G PRADEEP PA Unavailable Unavailable TONTARSKI, G PRADEEP PA Unavailable Unavailable TONTARSKI, G PRADEEP PA Unavailable Unavailable TONTARSKI, G PRADEEP PA Unavailable Unavailable TONTARSKI, G PRADEEP PA Unavailable Unavailable TONTARSKI, G PRADEEP PA Unavailable Unavailable TONTARSKI, G PRADEEP PA Unavailable Unavailable TONTARSKI, G PRADEEP PA Unavailable Unavailable TONTARSKI, G PRADEEP PA Unavailable Unavailable TONTARSKI, G PRADEEP PA Unavailable Unavailable TONTARSKI, G PRADEEP PA Unavailable Unavailable TONTARSKI, G PRADEEP PA Unavailable Unavailable TONTARSKI, G PRADEEP PA Unavailable Unavailable TONTARSKI, G PRADEEP PA Unavailable Unavailable TONTARSKI, G PRADEEP PA Unavailable Unavailable TONTARSKI, G PRADEEP PA Unavailable Unavailable TONTARSKI, G PRADEEP PA Unavailable Unavailable TONTARSKI, G PRADEEP PA Unavailable Unavailable TONTARSKI, G PRADEEP PA Unavailable Unavailable TONTARSKI, G PRADEEP PA Unavailable Unavailable TONTARSKI, G PRADEEP PA Unavailable Unavailable TONTARSKI, G PRADEEP PA Unavailable Unavailable TONTARSKI, G PRADEEP PA Unavailable Unavailable TONTARSKI, G PRADEEP PA Unavailable Unavailable TONTARSKI, G PRADEEP PA Unavailable Unavailable [place]oria, L Tiana RPA Unavailable Unavailable [place], L Tiana RPA Unavailable Unavailable [place], L Tiana RPA Unavailable Unavailable [place], L Tiana RPA Unavailable Unavailable [place], L Tiana RPA Unavailable Unavailable [place], L Tiana RPA Unavailable Unavailable [place], L Tiana RPA Unavailable Unavailable [place], L Tiana RPA Unavailable Unavailable [place], L Tiana RPA Unavailable Unavailable [place], L Tiana RPA Unavailable Unavailable [place], L Tiana RPA Unavailable Unavailable [place], L Tiana RPA Unavailable Unavailable [place], L Tiana RPA Unavailable Unavailable [place], L Tiana RPA Unavailable Unavailable [place], L Tiana RPA Unavailable Unavailable [place], L Tiana RPA Unavailable Unavailable [place], L Tiana RPA Unavailable Unavailable [place], L Tiana RPA Unavailable Unavailable [place], L Tiana RPA Unavailable Unavailable [place], L Tiana RPA Unavailable Unavailable [place], L Tiana RPA Unavailable Unavailable [place], L Tiana RPA Unavailable Unavailable [place], L Tiana RPA Unavailable Unavailable [place], L Tiana RPA Unavailable Unavailable [place], L Tiana RPA Unavailable Unavailable [place], L Tiana RPA Unavailable Unavailable [place], L Tiana RPA Unavailable Unavailable [place], L Tiana RPA Unavailable Unavailable [place], L Tiana RPA Unavailable Unavailable [place], L Tiana RPA Unavailable Unavailable [place], L Tiana RPA Unavailable Unavailable [place], L Tiana RPA Unavailable Unavailable Mike, Genevieve PA Unavailable Unavailable Mike, Genevieve PA Unavailable Unavailable Mike, Genevieve PA Unavailable Unavailable Mike, Genevieve PA Unavailable Unavailable Mike, Genevieve PA Unavailable Unavailable Mike, Genevieve PA Unavailable Unavailable Mike, Genevieve PA Unavailable Unavailable Mike, Genevieve PA Unavailable Unavailable Mike, Genevieve PA Unavailable Unavailable Mike, Genevieve PA Unavailable Unavailable Mike, Genevieve PA Unavailable Unavailable Mike, Genevieve PA Unavailable Unavailable Mike, Genevieve PA Unavailable Unavailable Mike, Genevieve PA Unavailable Unavailable Mike, Genevieve PA Unavailable Unavailable Mike, Genevieve PA Unavailable Unavailable Mike, Genevieve PA Unavailable Unavailable Mike, Genevieve PA Unavailable Unavailable Mike, Genevieve PA Unavailable Unavailable Mike, Genevieve PA Unavailable Unavailable Mike, Genevieve PA Unavailable Unavailable Mike, Genevieve PA Unavailable Unavailable Mike, Genevieve PA Unavailable Unavailable Mike, Genevieve PA Unavailable Unavailable Imke, Genevieve PA Unavailable Unavailable Mike, Genevieve PA Unavailable Unavailable Mike, Genevieve PA Unavailable Unavailable Mike, Genevieve PA Unavailable Unavailable Mike, Genevieve PA Unavailable Unavailable Mike, Genevieve PA Unavailable Unavailable Mike, Genevieve PA Unavailable Unavailable Mike, Genevieve PA Unavailable Unavailable Mike, Genevieve PA Unavailable Unavailable Mike, Genevieve PA Unavailable Unavailable Mike, Genevieve PA Unavailable Unavailable Mike, Genevieve PA Unavailable Unavailable Mike, Genevieve PA Unavailable Unavailable Mike, Genevieve PA Unavailable Unavailable Mike, Genevieve PA Unavailable Unavailable Mike, Genevieve PA Unavailable Unavailable Mike, Genevieve PA Unavailable Unavailable Mike, Genevieve PA Unavailable Unavailable Mike, Genevieve PA Unavailable Unavailable SABA SMITH MD Unavailable Unavailable NAZEALEC JacoboMAOsiel MD Unavailable Unavailable NAZEMALECMAOsiel MD Unavailable Unavailable NAZEMALECMAOsiel MD Unavailable Unavailable NAZEM AHMAOsiel MD Unavailable Unavailable NAZEM AHMAOsiel MD Unavailable Unavailable NAZEM AHMAD MD Unavailable Unavailable NAZEM AHMAD MD Unavailable Unavailable NAZEM AHMAD MD Unavailable Unavailable NAZEM AHMAD MD Unavailable Unavailable NAZEM AHMAD MD Unavailable Unavailable NAZEM AHMAD MD Unavailable Unavailable NAZEM AHMAD MD Unavailable Unavailable NAZEM AHMAD MD Unavailable Unavailable NAZEM, AHMAD MD Unavailable Unavailable NAZEM AHMAD MD Unavailable Unavailable NAZEM, AHMAD MD Unavailable Unavailable NAZEM, AHMAD MD Unavailable Unavailable NAZEM, AHMAD MD Unavailable Unavailable NAZEM, AHMAD MD Unavailable Unavailable NAZEM, AHMAD MD Unavailable Unavailable NAZEM, AHMAD MD Unavailable Unavailable NAZEM, AHMAD MD Unavailable Unavailable NAZEM, AHMAD MD Unavailable Unavailable NAZEM, AHMAD MD Unavailable Unavailable NAZEM, AHMAD MD Unavailable Unavailable NAZEM, AHMAD MD Unavailable Unavailable NAZEM, AHMAD MD Unavailable Unavailable NAZEM, AHMAD MD Unavailable Unavailable NAZEM, AHMAD MD Unavailable Unavailable NAZEM, AHMAD MD Unavailable Unavailable NAZEM, AHMAD MD Unavailable Unavailable NAZEM, AHMAD MD Unavailable Unavailable NAZEM, AHMAD MD Unavailable Unavailable NAZEM, AHMAD MD Unavailable Unavailable NAZEM, AHMAD MD Unavailable Unavailable NAZEM, AHMAD MD Unavailable Unavailable NAZEM, AHMAD MD Unavailable Unavailable NAZEM, AHMAD MD Unavailable Unavailable NAZEM, AHMAD MD Unavailable Unavailable NAZEM, AHMAD MD Unavailable Unavailable NAZEM, AHMAD MD Unavailable Unavailable NAZEM, AHMAD MD Unavailable Unavailable NAZEM, AHMAD MD Unavailable Unavailable NAZEM, AHMAD MD Unavailable Unavailable NAZEM, AHMAD MD Unavailable Unavailable NAZEM, AHMAD MD Unavailable Unavailable NAZEM, AHMAD MD Unavailable Unavailable NAZEM, AHMAD MD Unavailable Unavailable NAZEM, AHMAD MD Unavailable Unavailable NAZEM, AHMAD MD Unavailable Unavailable NAZEM, AHMAD MD Unavailable Unavailable NAZEM, AHMAD MD Unavailable Unavailable NAZEM, AHMAD MD Unavailable Unavailable NAZEM, AHMAD MD Unavailable Unavailable NAZEM, AHMAD MD Unavailable Unavailable NAZEM, AHMAD MD Unavailable Unavailable NAZEM, AHMAD MD Unavailable Unavailable NAZEM, AHMAD MD Unavailable Unavailable NAZEM, AHMAD MD Unavailable Unavailable Krystian Victor Unavailable Unavailable [place], A Baljinder PA Unavailable Unavailable [place], A Baljinder PA Unavailable Unavailable [place], A Baljinder PA Unavailable Unavailable [place], A Baljinder PA Unavailable Unavailable [place], A Baljinder PA Unavailable Unavailable [place], A Baljinder PA Unavailable Unavailable [place], A Baljinder PA Unavailable Unavailable [place], A Baljinder PA Unavailable Unavailable [place], A Baljinder PA Unavailable Unavailable [place], A Baljinder PA Unavailable Unavailable [place], A Baljinder PA Unavailable Unavailable [place], A Baljinder PA Unavailable Unavailable [place], A Baljinder PA Unavailable Unavailable [place], A Baljinder PA Unavailable Unavailable [place], A Baljinder PA Unavailable Unavailable [place], A Baljinder PA Unavailable Unavailable [place], A Baljinder PA Unavailable Unavailable [place], A Baljinder PA Unavailable Unavailable [place], A Baljinder PA Unavailable Unavailable [place], A Baljinder PA Unavailable Unavailable [place], A Baljinder PA Unavailable Unavailable [place], A Baljinder PA Unavailable Unavailable [place], A Baljinder PA Unavailable Unavailable [place], A Baljinder PA Unavailable Unavailable [place], A Baljinder PA Unavailable Unavailable [place], A Baljinder PA Unavailable Unavailable [place], A Baljinder PA Unavailable Unavailable [place], A Baljinder PA Unavailable Unavailable [place], A Baljinder PA Unavailable Unavailable [place], A Baljinder PA Unavailable Unavailable [place], A Baljinder PA Unavailable Unavailable [place], A Baljinder PA Unavailable Unavailable Magalis LEVINE MD Unavailable Unavailable Magalis LEVINE MD Unavailable Unavailable Magalis LEVINE MD Unavailable Unavailable Magalis LEVINE MD Unavailable Unavailable Magalis LEVINE MD Unavailable Unavailable Magalis LEVINE MD Unavailable Unavailable Magalis LEVINE MD Unavailable Unavailable Magalis LEVINE MD Unavailable Unavailable Magalis LEVINE MD Unavailable Unavailable Magalis LEVINE MD Unavailable Unavailable Magalis LEVINE MD Unavailable Unavailable Magalis LEVINE MD Unavailable Unavailable Magalis LEVINE MD Unavailable Unavailable Magalis LEVINE MD Unavailable Unavailable Magalis LEVINE MD Unavailable Unavailable Magalis LEVINE MD Unavailable Unavailable Magalis LEVINE MD Unavailable Unavailable Magalis LEVINE MD Unavailable Unavailable Magalis LEVINE MD Unavailable Unavailable Magalis LEVINE MD Unavailable Unavailable Magalis LEVINE MD Unavailable Unavailable Magalis LEVINE MD Unavailable Unavailable Magalis LEVINE MD Unavailable Unavailable Magalis LEVINE MD Unavailable Unavailable Magalis LEVINE MD Unavailable Unavailable Magalis LEVINE MD Unavailable Unavailable Magalis LEVINE MD Unavailable Unavailable Magalis LEVINE MD Unavailable Unavailable Magalis LEVINE MD Unavailable Unavailable Magalis LEVINE MD Unavailable Unavailable Magalis LEVINE MD Unavailable Unavailable Magalis LEVINE MD Unavailable Unavailable Magalis LEVINE MD Unavailable Unavailable Magalis LEVINE MD Unavailable Unavailable Magalis LEVINE MD Unavailable Unavailable Magalis LEVINE MD Unavailable Unavailable Magalis LEVINE MD Unavailable Unavailable Magalis LEVINE MD Unavailable Unavailable Magalis LEVINE MD Unavailable Unavailable Magalis LEVINE MD Unavailable Unavailable Magalis LEVINE MD Unavailable Unavailable [place], Tabatha Dain Unavailable Unavailable [place], Tabatha Dain MD Unavailable Unavailable Claribel, Tabatha Dain MD Unavailable Unavailable Claribel, Tabatha Dain MD Unavailable Unavailable Claribel, Tabatha Dain MD Unavailable Unavailable [place], Tabatha Dain MD Unavailable Unavailable Claribel, Tabatha Dain MD Unavailable Unavailable Claribel, L Dain MD Unavailable Unavailable [place], Tabatha Dain MD Unavailable Unavailable Claribel, L Dain MD Unavailable Unavailable [place], Tabatha Dain MD Unavailable Unavailable [place], Tabatha Dain MD Unavailable Unavailable [place], Tabatha Dain MD Unavailable Unavailable Claribel, L Dain MD Unavailable Unavailable Claribel, Tabatha Dain MD Unavailable Unavailable [place], L Dain MD Unavailable Unavailable [place], Tabatha Dain MD Unavailable Unavailable Claribel, Tabatha Dain MD Unavailable Unavailable Claribel, Tabatha Dain MD Unavailable Unavailable Claribel, L Dain MD Unavailable Unavailable [place], Tabatha Dain MD Unavailable Unavailable [place], L Dain MD Unavailable Unavailable [place], Tabatha Dain MD Unavailable Unavailable [place], Tabatha Dain MD Unavailable Unavailable [place], Tabatha Dain MD Unavailable Unavailable Claribel, Tabatha Dain MD Unavailable Unavailable Claribel, Tabatha Dain MD Unavailable Unavailable [place], L Dain MD Unavailable Unavailable Claribel, Tabatha Dain MD Unavailable Unavailable [place], Tabatha Dain MD Unavailable Unavailable [place], Tabatha Dani MD Unavailable Unavailable [place], Tabatha Dain MD Unavailable Unavailable [place], L Dain MD Unavailable Unavailable [place], L Dain MD Unavailable Unavailable [place], L Dain MD Unavailable Unavailable Claribel, Tabatha Dain MD Unavailable Unavailable [place], Tabatha Dain MD Unavailable Unavailable Claribel, Tabatha Dain MD Unavailable Unavailable [place], Tabatha Dain MD Unavailable Unavailable [place], Tabatha Dain MD Unavailable Unavailable [place], Tabatha Dain MD Unavailable Unavailable [place], L Dain MD Unavailable Unavailable [place], L Dain MD Unavailable Unavailable Tabatha Sanford MD Unavailable Unavailable Re-disclosure Warning The records that you are about to access may contain information from federally-assisted alcohol or drug abuse programs. If such information is present, then the following federally mandated warning applies: This information has been disclosed to you from records protected by federal confidentiality rules (42 CFR part 2). The federal rules prohibit you from making any further disclosure of this information unless further disclosure is expressly permitted by the written consent of the person to whom it pertains or as otherwise permitted by 42 CFR part 2. A general authorization for the release of medical or other information is NOT sufficient for this purpose. The Federal rules restrict any use of the information to criminally investigate or prosecute any alcohol or drug abuse patient.The records that you are about to access may contain highly sensitive health information, the redisclosure of which is protected by Article 27-F of the [facility] Public Health law. If you continue you may have access to information: Regarding HIV / AIDS; Provided by facilities licensed or operated by the [facility] Office of Mental Health; or Provided by the [facility] Office for People With Developmental Disabilities. If such information is present, then the following [facility] mandated warning applies: This information has been disclosed to you from confidential records which are protected by state law. State law prohibits you from making any further disclosure of this information without the specific written consent of the person to whom it pertains, or as otherwise permitted by law. Any unauthorized further disclosure in violation of state law may result in a fine or retirement sentence or both. A general authorization for the release of medical or other information is NOT sufficient authorization for further disc losure. Allergies and Adverse Reactions Type Description Substance Reaction Status Data Source(s ) Invokana Invokana Invokana active NETSMART ([facility]) Basaglar Kwikpen Basaglar Kwikpen Basaglar Kwikpen active NETSMART ([facility]) Grapefruit Concentrate Grapefruit Concentrate Grapefruit Concentrate active NETSMART ([facility]) Adverse Reaction Adverse Reaction Insulin Glargine Itching Moderate MEDENT ([facility]) Adverse Reaction Adverse Reaction canagliflozin Itching Mild MEDENT ([facility]) Propensity to adverse reactions CANAGLIFLOZIN canagliflozin Itching L ow Active [facility] Low Propensity to adverse reactions GRAPEFRUIT CONCENTRATE Grapefrui t Concentrate Itching Medium Hives Medium Active [facility] Medium Medium Propensity to adverse reactions INSULIN GLARGINE Insulin Glargin e Itching Medium Active [facility] Medium Drug Allergy NKDA NKDA MEDENT ([facility]) Family History Family Member Name Family Member Gender Family Member Status Date o f Status Description Data Source(s) Unknown Male Problem MEDENT ([facility] ) Encounters Encounter Providers Location Date Indications Data Source(s ) Outpatient Attender: Karen BATISTA-SJP.RASHIDA 12:00:00 AM EST - 2020 01:46:[address] [facility] Office Visit Attender: Dain Sanford MD Main Office 12:15:00 PM EST MEDENT ([facility]) Unknown [address] [id number] 04/22/2020 12:00:00 AM EST eCW1 ([facility]) Unknown [address] [id number] 04/15/2020 12:00:00 AM EST eCW1 ([facility]) Inpatient Attender: BRITTANI BIRMINGHAM MDAdmitter: BRITTANI LUIS MD [id number]-[id number] 04/10/2020 11:17:08 PM EST - 04/15/2020 01:18:00 PM EST [facility] Patient discharged. ([id number]) For Template Amanda [address] [place] [phone] 04/05/2020 12:00:00 AM EST eCW1 ([facility]) Outpatient Attender: Karen THOMASRASHIDA-SJP.RASHIDA 0 12:00:00 AM EST - 03/29/2020 04:01:[address] [facility] ([id number]) For Template Amanda [address] [place] [phone] 03/28/2020 12:00:00 AM EST eCW1 ([facility]) Office Visit Attender: Genevieve GALVIN Main Office 03/21/2020 01:45:00 PM EST MEDENT ([facility]) ([id number]) For Template Amanda [address] [place] [address] 03/21/2020 12:00:00 AM EST eCW1 ([facility]) Unknown [address] [id number] 03/08/2020 12:00:00 AM EST eCW1 ([facility]) Unknown [address] [id number] 03/06/2020 12:00:00 AM EST eCW1 ([facility]) Unknown [address] [id number] 03/05/2020 12:00:00 AM EST eCW1 ([facility]) Office Visit Attender: Dain Sanford MD Main Office 09:45:00 AM EST MEDENT ([facility]) ([id number]) For Template Amanda [address] [place] [address] 02/29/2020 12:00:00 AM EST eCW1 ([facility]) Unknown [address] [id number] 02/22/2020 12:00:00 AM EST eCW1 ([facility]) Unknown [address] [id number] 02/22/2020 12:00:00 AM EST eCW1 ([facility]) Outpatient Attender: Dain Jacobo DAttender: BRITTANI BIRMINGHAM MDAdmitter: BRITTANI BIRMINGHAM MDReferrer: BRITTANI BIRMINGHAM MDConsultant: Dain Sanford MD [id number]-[id number] 02/18/2020 04:40:24 PM EST - 02/20/2020 09:35:00 PM EST [facility] Patient discharged. 02/16/2020 01:00:00 AM EDT - 020 05:10:48 PM EST NETSMART ([facility]) Inpatient Attender: Dain Jacboo DAdmitter: Dain Sanford MDConsultant: SHANTELL LEVINE MD [id number]-[id number] 02/05/2020 04:17:29 AM EDT - 02/16/2020 12:57:00 PM EDT [facility] Patient discharged. Unknown [address] [facility] [address] 02/05/2020 12:00:00 AM EDT eCW1 ([facility]) Unknown [address] [facility] [place] [address] 02/05/2020 12:00:00 AM EDT eCW1 ([facility]) ([id number]) For Template Amanda [facility] [address] 02/02/2020 12:00:00 AM EDT eCW1 ([facility]) ([id number]) For Template Amanda [address] [place] [address] 01/26/2020 12:00:00 AM EDT eCW1 ([facility]) SDC Attender: SABA SMITH MDAdmitter: SABA SMITH MD ES1-OR 01/24/2020 09:09:23 AM EDT [facility] Outpatient Attender: SABA SMITH MD MOCAM-MOCAM.CSA 020 12:00:00 AM EDT - 01/23/2020 11:40:56 AM EDT [facility] ([id number]) For Template Amanda [address] [place] [phone] 01/17/2020 12:00:00 AM EDT eCW1 ([facility]) Outpatient Attender: Baljinder GALVIN [facility] 01/05/2020 11:00:00 AM EDT JOSE ([facility]) Outpatient Attender: FLORECITA MCCARTY [facility] 12/2019 10:00:00 AM EDT MEDENT ([facility] Emergency ES1-ES1 12/07/2019 07:08:00 PM EDT - 020 11:18:00 PM EDT [facility] Patient discharged. Outpatient Attender: Karen MAYORGA SJP.RASHIDA-SJP.RASHIDA 0 12:00:00 AM EDT - 11/20/2019 10:37:[address] [facility] Outpatient Attender: Baljinder GALVIN [facility] 11/16/2019 01:10:00 PM EDT MEDENT ([facility]) Outpatient Attender: Tiana Mcmahan/Temperance/Osmar/R eindl 10/30/2019 09:00:00 AM EDT MEDENT ([facility] Office Visit Attender: FLORECITA MCCARTY [facility] Office 10/17 01:00:00 PM EDT MEDENT ([facility] Office Visit Attender: [facility] 05/2019 01:00:00 PM EDT MEDENT ([facility] 02:15:00 PM EDT MEDENT ([facility] Outpatient Attender: Baljinder GALVIN [facility] 09/27/2019 09:20:00 AM EDT MEDENT ([facility]) Outpatient Attender: Krystian MACK 09/26/2019 07:37:19 PM E DT [facility] Outpatient Attender: Tiana Mcmahan/Temperance/Osmar/R eindl 09/26/2019 10:45:00 AM EDT MEDENT ([facility]) Outpatient Attender: FLORECITA MCCARTY [facility] Office 11/2019 01:15:00 PM EDT MEDENT ([facility] Outpatient Attender: Krystian MACK 09/16/2019 12:11:06 AM E DT [facility] Outpatient Referrer: PRADEEP GALVIN 09/07/2019 06: 19:00 AM EDT [facility] Outpatient Attender: Tiana Longoria RPA Marj/Temperance/Osmar/R eindl 09/04/2019 09:30:00 AM EDT MEDENT ([facility]) Outpatient Attender: Tiana Longoria RPA Marj/Temperance/Osmar/R eindl 08/14/2019 11:00:00 AM EDT MEDENT ([facility]) Outpatient Attender: Karen ROGERS 0 12:00:00 AM EDT - 08/10/2019 09:49:[address] [facility] Outpatient Attender: Baljinder GALVIN [facility] 07/21/2019 01:00:00 PM EDT MEDENT ([facility]) Outpatient Attender: Tiana Longoria RPA Marj/Temperance/Osmar/R eindl 07/20/2019 09:45:00 AM EDT MEDENT ([facility]) Outpatient Attender: Baljinder GALVIN [facility] 07/05/2019 02:30:00 PM EDT MEDENT ([facility]) Outpatient Referrer: Karen MANCIA 07/05/2019 12:00:00 AM EDT [facility] Outpatient Referrer: PRADEEP GALVIN 07/04/2019 11: 08:00 AM EDT [facility] Outpatient Attender: Tiana Longoria RPA Marj/Temperance/Osmar/R eindl 07/03/2019 09:00:00 AM EDT MEDENT ([facility]) Outpatient Attender: Baljinder GALVIN [facility] 06/12/2019 01:00:00 PM EST MEDENT ([facility]) Outpatient Attender: FLORECITA MCCARTY [facility] Office 05/21 02:45:00 PM EST MEDENT ([facility] Outpatient Attender: Tiana Garnettang/Temperance/Osmar/R eindl 05/30/2019 08:00:00 AM EST MEDENT ([facility]) Outpatient Referrer: PRADEEP GALVIN 05/24/2019 08: 35:00 AM EST [facility] Outpatient Attender: FLORECITA MCCARTY [facility] Office 04/20 01:30:00 PM EST MEDENT ([facility] Outpatient Attender: Karen BATISTA-SJP.RASHIDA 0 10:25:28 AM EST - 05/11/2019 10:57:[address] [facility] Outpatient Attender: Tiana Mcmahan/Temperance/Osmar/R eindl 04/27/2019 09:45:00 AM EST MEDENT ([facility]) Outpatient Referrer: PRADEEP GALVIN 04/24/2019 08: 58:00 PM EST [facility] Outpatient Attender: Karen MENJIVAR.RASHIDA-SJP.RASHIDA 04/11/2019 12:00:00 AM EST [facility] Outpatient Attender: Baljinder GALVIN [facility] 03/29/2019 09:40:00 AM EST MEDENT ([facility]) Immunizations Vaccine Date Status Description Data Source(s) influenza, recombinant, quadrIvalent,injectable, prese rvative free 01/26/2020 10:09:00 AM EDT completed eCW1 ([facility]) influenza, recombinant, quadrIvalent,injectable, prese rvative free 01/26/2020 10:09:00 AM EDT completed eCW1 ([facility]) influenza, recombinant, quadrIvalent,injectable, prese rvative free 01/26/2020 10:09:00 AM EDT completed eCW1 ([facility]) influenza, recombinant, quadrIvalent,injectable, prese rvative free 01/26/2020 10:09:00 AM EDT completed eCW1 ([facility]) influenza, recombinant, quadrIvalent,injectable, prese rvative free 01/26/2020 10:09:00 AM EDT completed eCW1 ([facility]) influenza, recombinant, quadrIvalent,injectable, prese rvative free 01/26/2020 10:09:00 AM EDT completed eCW1 ([facility]) influenza, recombinant, quadrIvalent,injectable, prese rvative free 01/26/2020 10:09:00 AM EDT completed eCW1 ([facility]) influenza, recombinant, quadrIvalent,injectable, prese rvative free 01/26/2020 10:09:00 AM EDT completed eCW1 ([facility]) influenza, recombinant, quadrIvalent,injectable, prese rvative free 01/26/2020 10:09:00 AM EDT completed eCW1 ([facility]) influenza, recombinant, quadrIvalent,injectable, prese rvative free 01/26/2020 10:09:00 AM EDT completed eCW1 ([facility]) influenza, recombinant, quadrIvalent,injectable, prese rvative free 01/26/2020 10:09:00 AM EDT completed eCW1 ([facility]) influenza, recombinant, quadrIvalent,injectable, prese rvative free 01/26/2020 10:09:00 AM EDT completed eCW1 ([facility]) influenza, recombinant, quadrIvalent,injectable, prese rvative free 01/26/2020 10:09:00 AM EDT completed eCW1 ([facility]) influenza, recombinant, quadrIvalent,injectable, prese rvative free 01/26/2020 10:09:00 AM EDT completed eCW1 ([facility]) influenza, recombinant, quadrIvalent,injectable, prese rvative free 01/26/2020 10:09:00 AM EDT completed eCW1 ([facility]) influenza, recombinant, quadrIvalent,injectable, prese rvative free 01/26/2020 10:09:00 AM EDT completed eCW1 ([facility]) Medications Medication Brand Name Start Date Product Form Dose Route Admi nistrative Instructions Pharmacy Instructions Status Indications Reaction Description Data Source(s) pantoprazole 40 MG Delayed Release Oral Tablet PANTOPRAZOLE SODIUM 05/07/2020 12:00:00 AM EST tablet,delayed release (DR/EC) 90 T FITO ONE TABLET BY MOUTH EVERY DAY TAKE ONE TABLET BY MOUTH EVERY DAY SOLD: 05/07/2020 [facility] 200 mg 05/06/2020 12:00:00 AM EST tablet 7 TAKE ONE TABLET BY MOUTH EVERY DAY TAKE ONE TABLET BY MOUTH EVERY DAY SOLD: 05/07/2020 [facility] 5-325 mg 05/02/2020 12:00:00 AM EST tablet 20 TAKE ONE TABLET BY MOUTH EVERY 6 HOURS NEEDED FOR PAIN MAXIMUM DAILY DOSE = FOUR TABLETS TAKE ONE TABLET BY MOUTH EVERY 6 HOURS NEEDED FOR PAIN MAXIMUM DAILY DOSE = FOUR TABLETS SOLD: 05/02/2020 [facility] 5-325 mg 05/02/2020 12:00:00 AM EST tablet 14 TAKE ONE TABLET BY MOUTH EVERY 12 HOURS NEEDED FOR PAIN MAXIMUM DAILY DOSE = 2 TABLETS TAKE ONE TABLET BY MOUTH EVERY 12 HOURS NEEDED FOR PAIN MAXIMUM DAILY DOSE = 2 TABLETS SOLD: 05/02/2020 [facility] 5-325 mg 2020 12:00:00 AM EST tablet 14 TAKE ONE TABLET BY MOUTH EVERY 12 HOURS NEEDED FOR PAIN MAXIMUM DAILY DOSE = TWO TABLETS TAKE ONE TABLET BY MOUTH EVERY 12 HOURS NEEDED FOR PAIN MAXIMUM DAILY DOSE = TWO TABLETS SOLD: 2020 [facility] 80 mg 2020 12:00:00 AM EST tablet 90 TAKE ONE TABLET BY MOUTH EVERY EVENING TAKE ONE TABLET BY MOUTH EVERY EVENING SOLD: 2020 [facility] 5 mg 2020 12:00:00 AM EST tablet 14 TAKE ONE TABLET BY MOUTH EVERY 12 HOURS NEEDED FOR SPASMS TAKE ONE TABLET BY MOUTH EVERY 12 HOURS NEEDED FOR SPASMS SOLD: 2020 [facility] Amoxicillin 875 MG / Clavulanate 125 MG Oral Tablet amoxicillin-clavulanate (AUGMENTIN) 875-125 MG per tablet amoxicillin-clavulanate (AUGMENTIN) 875- 125 MG per tablet 04/25/2020 12:00:00 AM EST active [facility] 875-125 mg 04/25/2020 12:00:00 AM EST tablet 20 TAKE ONE TABLET BY MOUTH EVERY 12 HOURS TAKE ONE TABLET BY MOUTH EVERY 12 HOURS SOLD: 04/25/2020 [facility] 5-325 mg 04/22/2020 12:00:00 AM EST tablet 30 TAKE ONE TABLET BY MOUTH EVERY 4 HOURS NEEDED FOR PAIN MAXIMUM DAILY DOSE = 6 TAKE ONE TABLET BY MOUTH EVERY 4 HOURS NEEDED FOR PAIN MAXIMUM DAILY DOSE = 6 SOLD: 04/22/2020 [facility] 400 mg 04/22/2020 12:00:00 AM EST tablet extended release 90 TAKE ONE TABLET BY MOUTH THREE TIMES A DAY TAKE ONE TABLET BY MOUTH THREE TIMES A DAY SOLD: 04/22/2020 [facility] 150 mg 04/20/2020 12:00:00 AM EST capsule 60 TAKE ONE CAPSULE BY MOUTH TWICE A DAY MAXIMUM DAILY DOSE = 2 CAPSULES TAKE ONE CAPSULE BY MOUTH TWICE A DAY MAXIMUM DAILY DOSE = 2 CAPSULES SOLD: 04/21/2020 [facility] Insulin Lispro 100 UNT/ML Injectable Kaushal ution insulin lispro (HumaLOG) injection 1-10 Units insulin lispro (HumaLOG) injection 1-10 Units 04/15/20 08:00:00 AM EST Subcutaneous active 1-1 0 Units, Subcutaneous, MEALSS, First dose on Wed04/15/20 at 0800
5 units Nutritional and Correction Insulin ScaleBlood Glucose (mg/dl) <70 start hypoglycemiaprotocolGlucoseEats >=50% Eats <50%Eats Nothing (mg/dl) of meal of mealor NPO70- 1203 units 2 units 0 [id number] units 3 units 0 guljl370- 2206 units 3 units 1 -9596 units 4 units 2 jaele537- 3208 units 5 units 3 [id number] units 6 units 3 [id number] units 7 units 4 units>420 call MD10 units 8 units 5 unitsTest glucose within 30 minutes of insulin administration.Administer insulin within 15 minutes (before or after) of the patient starting to eat.For patients that are NPO, use theNPO (correction) scale to cover POC glucose at 08:00, 12:00, 17:00.
[facility] Medication administered onsite Amoxicillin 875 MG / Clavulanate 125 MG Oral Tablet amoxicillin-clavulanate (AUGMENTIN) 875-125 MG per tablet amoxicillin-clavulanate (AUGMENTIN) 875- 125 MG per tablet 04/15/2020 12:00:00 AM EST 1 {tbl} Oral active Take 1 tablet by mouth 2 (two) times a day for 2 days [facility] 875-125 mg 04/15/2020 12:00:00 AM EST tablet 4 TAKE ONE TABLET BY MOUTH TWICE A DAY FOR 2 DAYS TAKE ONE TABLET BY MOUTH TWICE A DAY FOR 2 DAYS SOLD: 04/21/2020 [facility] ampicillin-sulbactam (UNASYN) 3 g in sodium chloride 0.9% (N S) 100 mL PIGTAIL 04/14/2020 01:00:00 PM EST 3 g Intravenous a ctive Skin and Soft Tissue Infection 3 g, Intravenous, Administer over 30 Minutes, Every 6 hours (relative), First dose on 04/14/20 at 1300 [facility] Skin and Soft Tissue Infection Medication administered onsite Insulin Glargine 100 UNT/ML Injectable S olution [Lantus] insulin glargine (LANTUS) injection 20 Units insulin glargine (LANTUS) injection 20 Units 04/14/2020 12:00:00 PM EST 20 U Subcutaneous active 20 Units, Subcutaneous, Daily (Lantus), First dose on 04/14/20 at 1200 [facility] Medication administered onsite Fluconazole 200 MG Oral Tablet fluconazole (DIFLUCAN) 200 MG tablet fluconazole (DIFLUCAN) 200 MG tablet 04/14/2020 12:00:00 AM EST 200 mg Oral active Take 200 [address] by mouth daily [facility] 200 mg 04/14/2020 12:00:00 AM EST tablet 7 TAKE ONE TABLET BY MOUTH EVERY DAY TAKE ONE TABLET BY MOUTH EVERY DAY SOLD: 04/14/2020 [facility] vancomycin HCl (VANCOCIN) 750 mg in dextrose 5 % 250 mL IVPB 04/13/2020 09:00:00 PM EST 750 mg Intravenous aborted Sk in and Soft Tissue InfectionSepsis 750 mg, Intravenous, Adminis ter over 1 Hours, Every 12 hours (relative), First dose on 04/13/20 at 2100 [facility] Skin and Soft Tissue Infection Sepsis Medication administered onsite fluconazole (DIFLUCAN) IVPB 200 mg in NaCl (premix) 0338-604 6-48 04/13/2020 12:00:00 PM EST 200 mg Intravenous completed Sk in and Soft Tissue Infection 200 mg, Intravenous, Adminis ter over 60 Minutes, Every 24 hours (relative), First dose on 04/13/20 at 1200, For 2 days
For administration and preparation considerations, refer to Hazardous Drugs in the Workplace Policy on Intranet.
[facility] Skin and Soft Tissue Infection Medication administered onsite Insulin Glargine 100 UNT/ML Injectable S olution [Lantus] insulin glargine (LANTUS) injection 20 Units insulin glargine (LANTUS) injection 20 Units 04/13/2020 10:00:00 AM EST 20 U Subcutaneous aborted 20 Units, Subcutaneous, 2 Times Daily (Lantus), First dose on 04/13/20 at 1000 [facility] Medication administered onsite Insulin Lispro 100 UNT/ML Injectable Kaushal ution insulin lispro (HumaLOG) injection 2-28 Units insulin lispro (HumaLOG) injection 2-28 Units 04/12/20 20 05:00:00 PM EST Subcutaneous aborted 2-2 8 Units, Subcutaneous, MEALSS, First dose on Wed04/12/20 at 1700
14 units Nutritional and Correction Insulin ScaleBlood Glucose (mg/dl) <70 start hypoglycemiaprotocolGlucoseEats >=50% Eats <50%Eats Nothing (mg/dl) of meal of mealor NPO70- 1209 units 5 units 0 -62793 units 7 units 0 - 96104 units 9 units 2 [id number] units 12 units 5 liwnj127-73296 units 14 units 7 alkuw575- 01149 units 16 units 9 [id number] units 19 units 12 units>420 call MD28 units 21 units 14 unitsTest glucose within 30 minutes of insulin administration.Administer insulin within 15 minutes (before or after) of the patient starting to eat.For patients that are NPO, use theNPO (correction) scale to cover POC glucose at 08:00, 12:00, 17:00.
[facility] Medication administered onsite Miconazole Nitrate 0.02 MG/MG Topical Po wder miconazole (REMEDY PHYTOPLEX AF) 2 % powder 1 application miconazole (REMEDY PHYTOPLEX AF) 2 % pow miriam 1 application 04/12/2020 12:00:00 PM EST 1 {application} Topical a ctive 1 application, Topical, 2 times daily, First dose on Wed04/12/20 at 1200, Until Discontinued [facility] Medication administered onsite Insulin Glargine 100 UNT/ML Injectable S olution [Lantus] insulin glargine (LANTUS) injection 24 Units insulin glargine (LANTUS) injection 24 Units 04/12/2020 11:00:00 AM EST 24 U Subcutaneous aborted 24 Units, Subcutaneous, 2 Times Daily (Lantus), First dose on Wed04/12/20 at 1100 [facility] Medication administered onsite vancomycin (VANCOCIN) IVPB 1,000 mg [id number] 04/11/2020 08:00:0 0 PM EST 1000 mg Intravenous aborted Skin and Soft Tissue Infecti onSepsis 1,000 mg, Intravenous, Administer over 1 Hours, Every 12 hours (relative), First dose on Wed04/11/20 at 2000 [facility] Skin and Soft Tissue Infection Sepsis Medication administered onsite Insulin Glargine 100 UNT/ML Injectable S olution [Lantus] insulin glargine (LANTUS) injection 30 Units insulin glargine (LANTUS) injection 30 Units 04/11/2020 10:00:00 AM EST 30 U Subcutaneous aborted 30 Units, Subcutaneous, 2 Times Daily (Lantus), First dose on Wed04/11/20 at 1000 [facility] Medication administered onsite iopamidol (ISOVUE-370) 76 % 120 mL 70747 04/11/2020 09:22:28 AM EST 120 mL Intravenous completed 120 mL, Intra venous, Once in imaging, contrast, Starting Wed04/11/20 at 0922, For 1 dose [facility] Medication administered onsite Aspirin 325 MG Oral Tablet aspirin tablet 325 mg aspirin tab let 325 mg 04/11/2020 09:00:00 AM EST 325 mg Oral active 325 mg, Oral, Daily, First dose on Em 04/11/20 at 0900 [facility] Medication administered onsite atorvastatin 80 MG Oral Tablet atorvastatin (LIPITOR) tablet 80 mg atorvastatin (LIPITOR) tablet 80 mg 04/11/2020 09:00:00 AM EST 80 mg Oral active 80 mg, Oral, Daily, First dose on Em 04/11/20 at 0900 [facility] Medication administered onsite Metoclopramide 10 MG Oral Tablet metoclopramide (MELVA N) tablet 10 mg metoclopramide (REGLAN) tablet 10 mg 04/11/2020 09:00:00 AM EST 10 mg Oral active 10 mg, Oral, 2 times daily, First dose on Em 04/11/20 at 0900 [facility] Medication administered onsite pantoprazole 40 MG Delayed Release Oral Tablet pantoprazole (PROTONIX) EC tablet 40 mg pantoprazole (PROTONIX) EC tablet 40 mg 04/11/2020 09:00:[address] 40 mg Oral active Gastroesophageal Reflux Diseas e 40 mg, Oral, Daily, Indications: Gastroesophageal Reflux Disease, First dose on Em 04/11/20 at 0900 [facility] Gastroesophageal Reflux Disease Medication administered onsite Lisinopril 5 MG Oral Tablet lisinopril (PRINIVIL,ZESTR IL) tablet 5 mg lisinopril (PRINIVIL,ZESTRIL) tablet 5 mg 04/11/2020 09:00:00 AM EST 5 mg O ral active 5 mg, Oral, Daily, First dose on Em 04/11/20 at 0900 [facility] Medication administered onsite Loratadine 10 MG Oral Tablet loratadine (CLARITIN) tab let 10 mg loratadine (CLARITIN) tablet 10 mg 04/11/2020 09:00:00 AM EST 10 mg Oral active 10 mg, Oral, Daily, First dose on Em 20 at 0900 [facility] Medication administered onsite clopidogrel 75 MG Oral Tablet clopidogrel (PLAVIX) tab let 75 mg clopidogrel (PLAVIX) tablet 75 mg 04/11/2020 09:00:00 AM EST 75 mg Oral active 75 mg, Oral, Daily, First dose on Em 04/11/20 at 0900 [facility] Medication administered onsite 24 HR Bupropion Hydrochloride 150 MG Ext ended Release Oral Tablet buPROPion (WELLBUTRIN XL) 24 hr tablet 150 mg buPROPion (WELLBUTRIN XL) 24 hr tablet 1 50 mg 04/11/2020 09:00:00 AM EST 150 mg Oral active 150 mg, Oral, Daily, First dose on Em 04/11/20 at 0900 [facility] Medication administered onsite Insulin Lispro 100 UNT/ML Injectable Kaushal ution insulin lispro (HumaLOG) injection 3-40 Units insulin lispro (HumaLOG) injection 3-40 Units 04/11/20 20 08:00:00 AM EST Subcutaneous aborted 3-4 0 Units, Subcutaneous, MEALSS, First dose on Em 04/11/20 at 0800
20 units Nutritional and Correction Insulin ScaleBlood Glucose (mg/dl) <70 start hypoglycemiaprotocolGlucoseEats >=50% Eats <50%Eats Nothing (mg/dl) of meal of mealor [id number]- 18767 units 7 units 0 -03680 units 10 units 0 [id number] units 13 units 3 [id number]- 22861 units 17 units 7 -01021 units 20 units 10 -35672 units 23 units 13 [id number]- [id number] units 27 units 17 units>420 call MD40 units 30 units 20 unitsTest glucose within 30 minutes of insulin administration.Administer insulin within 15 minutes (before or after) of the patient starting to eat.For patients that are NPO, use theNPO (correction) scale to cover POC glucose at 08:00, 12:00, 17:00.
[facility] Medication administered onsite Pentoxifylline 400 MG Extended Release O ral Tablet pentoxifylline (TRENTal) CR tablet 400 mg pentoxifylline (TRENTal) CR tablet 400 mg 04/11/2020 0 8:00:00 AM EST 400 mg Oral active 400 mg, Oral, 3 times daily with meals, First dose on Em 04/11/20 at 0800 [facility] Medication administered onsite ferrous sulfate 325 MG Oral Tablet ferrous sulfate tab let 325 mg ferrous sulfate tablet 325 mg 04/11/2020 07:00:00 AM EST 325 mg Oral act guevara 325 mg, Oral, Daily with breakfast, First dose on Em 04/11/20 at 0700 [facility] Medication administered onsite heparin (porcine) injection 5,000 Units [id number] 04/11/20 06:00:00 AM EST 5000 U Subcutaneous active 5,000 Units , Subcutaneous, Every 8 hours (scheduled), First dose on Em 04/11/20 at 0600
If platelet count is less than 100,000 or hematocrit is less than 30, or if there is a 5 point decrease in hematocrit, do not give the dose and call physician/designee.
[facility] Medication administered onsite sodium chloride 0.9% (NS) infusion [id number] 04/11/2020 06:00:00 A M EST Intravenous aborted at 125 mL/hr, Intravenous, Continuous, Starting Em 04/11/20 at 0600 [facility] Medication administered onsite menthol (HALLS) lozenge 1 lozenge 04/11/2020 05:17:[address] 1 {lozenge} Buccal active 1 lozenge, [place], As needed, sore throat, Starting Em 04/11/20 at 0517 [facility] Medication administered onsite fluconazole (DIFLUCAN) IVPB 400 mg [id number] 04/11/2020 02:00:00 AM EST 400 mg Intravenous completed Skin and Soft Tissue Infecti on 400 mg, Intravenous, Administer over 120 Minutes, Once, Em 04/11/20 at 0200, For 1 dose
For administration and preparation considerations, refer to Hazardous Drugs in the Workplace Policy on Intranet.
[facility] Skin and Soft Tissue Infection Medication administered onsite vancomycin in 500mL (VANCOCIN) IV 2,000 mg [id number] 04/11/2020 02:00:00 AM EST 2000 mg Intravenous completed 2, 000 mg, Intravenous, Administer over 120 Minutes, Once, Em 04/11/20 at 0200, For 1 dose [facility] Medication administered onsite normal saline flush 0.9 % injection 3 mL [id number] 04/11/2020 01:00:00 AM EST 3 mL Intravenous active 3 mL , Intravenous, Every 8 hours (scheduled), First dose on Em 04/11/20 at 0100
flush per protocol, D/C Main IV fluid if appropriate
[facility] Medication administered onsite Docusate Sodium 50 MG / sennosides, [facility] 8.6 MG Oral Tablet senna-docusate (PERICOLACE) 8.6-50 MG 2 tablet senna-docusate (PERICOLACE) 8.6-50 MG 2 tablet 04/11/2020 01:00:00 AM EST 2 {tbl} Oral active 2 tablet, Oral, Nightly, First dose on Em 04/11/20 at 0100
hold for loose stools
[facility] Medication administered onsite pregabalin (LYRICA) capsule 200 mg 04/11/2020 01:00:00 AM EST 200 mg Oral active 200 mg, Oral, 2 times daily, First dose on Em 04/11/20 at 0100, For 7 days [facility] Medication administered onsite piperacillin-tazobactam (ZOSYN) 3.375 g in sodium chloride (NS) 0.9 % 100 mL IV pigtail 04/11/2020 01:00:00 AM EST 3.375 g Intravenous aborted Skin and Soft Tissue Infection 3.375 g, Intravenous, Admini ster over 30 Minutes, Every 6 hours (relative), First dose on Em 04/11/20 at 0100 [facility] Skin and Soft Tissue Infection Medication administered onsite dextrose 5 % and sodium chloride 0.45 % infusion [id number] 0 04/11/2020 01:00:00 AM EST Intravenous aborted at 125 mL/hr, Intravenous, Continuous, Starting Em 04/11/20 at 0100 [facility] Medication administered onsite Acetaminophen 325 MG / Oxycodone Hydroch loride 5 MG Oral Tablet oxyCODONE- acetaminophen (PERCOCET) 5-325 MG 2 tablet oxyCODONE-acetaminophen (PERCOCET) 5- 325 MG 2 tablet 04/11/2020 12:06:40 AM EST 2 {tbl} Oral a ctive 2 tablet, Oral, Every 4 hours PRN, severe pain (7-10), Starting Em 04/11/20 at 0006, For 7 days [facility] Medication administered onsite Acetaminophen 325 MG / Oxycodone Hydroch loride 5 MG Oral Tablet oxyCODONE- acetaminophen (PERCOCET) 5-325 MG 1 tablet oxyCODONE-acetaminophen (PERCOCET) 5- 325 MG 1 tablet 04/11/2020 12:06:25 AM EST 1 {tbl} Oral a ctive 1 tablet, Oral, Every 4 hours PRN, moderate pain (4-6), Starting Em 04/11/20 at 0006, For 7 days [facility] Medication administered onsite Docusate Sodium 100 MG Oral Capsule docusate sodium (C OLACE) capsule 200 mg docusate sodium (COLACE) capsule 200 mg 04/11/2020 12:02:05 AM EST 200 mg Oral active 200 mg, Oral, 2 times daily PRN, constipation, Starting Em 04/11/20 at 0002
hold for loose stools
[facility] Medication administered onsite Cyclobenzaprine hydrochloride 10 MG Oral Tablet cyclobenzaprine (FLEXERIL) tablet 5 mg cyclobenzaprine (FLEXERIL) tablet 5 mg 04/11/2020 12:02:04 AM ES T 5 mg Oral active 5 mg, Oral , 2 times daily PRN, muscle spasms, Starting Em 04/11/20 at 0002 [facility] Medication administered onsite Magnesium Hydroxide 80 MG/ML Oral Suspen roxanne magnesium hydroxide (MILK OF MAGNESIA) 400 MG/5ML suspension 30 mL magnesium hydroxide (MILK OF MAGNESIA) 4 00 MG/5ML suspension 30 mL 04/11/2020 12:00:00 AM EST 30 mL Oral active 30 mL, Oral, Daily PRN, constipation, Starting [facility] 04/11/20 at 0000
If senna- docusate is not effective
[facility] Medication administered onsite Albuterol 0.83 MG/ML Inhalant Solution a lbuterol (PROVENTIL) nebulizer solution 2.5 mg albuterol (PROVENTIL) nebulizer solution 2.5 mg 2019 11:58:29 PM EST 2.5 mg active 2.5 mg, Nebulization, RT 4 times daily as needed, wheezing, shortness of breath, Starting Wed04/10/20 at 2358 [facility] Medication administered onsite Acetaminophen 325 MG Oral Tablet acetaminophen (TYLENO L) 325 MG tablet 650 mg acetaminophen (TYLENOL) 325 MG tablet 650 mg 04/10/2020 11:50:38 PM EST 650 mg Oral active 650 mg, Or al, Every 4 hours PRN, mild pain (1-3), headaches, Starting Wed04/10/20 at 2350
"Maximum dose of acetaminophen is 4,000 mg from all sources in 24 hours."
[facility] Medication administered onsite Bisacodyl 10 MG Rectal Suppository bisacodyl (DULCOLAX ) suppository 10 mg bisacodyl (DULCOLAX) suppository 10 mg 04/10/2020 11:50:31 PM EST 10 mg Rectal active 10 mg, Rectal, Daily PRN, constipation, Starting Wed04/10/20 at 2350
Hold for BM.If senna-docusate and milk of magnesia are not effective
[facility] Medication administered onsite Mineral Oil 1000 MG/ML Enema mineral oil enema 1 enema mineral oil enema 1 enema 04/10/2020 11:50:31 PM EST 1 {enema} Rectal active 1 enema, Rectal, Daily PRN, constipation, unrelieved by MOM/bisacodyl/senna-docusate, Starting Wed04/10/20 at 2350
hold for loose stools
[facility] Medication administered onsite 2 ML Metoclopramide 5 MG/ML Prefilled Sy ringe metoclopramide (REGLAN) injection 10 mg metoclopramide (REGLAN) injection 10 mg 04/10/2020 11:50:[address] 10 mg Intravenous active 10 mg, I ntravenous, Every 6 hours PRN, for Nausea/Vomiting not relieved by zofran, Starting Wed04/10/20 at 2350 [facility] Medication administered onsite ondansetron (ZOFRAN) injection 4 mg [id number] 04/10/2020 11:50:2 7 PM EST 4 mg Intravenous active 4 mg, In travenous, Every 4 hours PRN, nausea, vomiting, Starting 04/10/20 at 2350 [facility] Medication administered onsite 5-325 mg 04/10/2020 12:00:00 AM EST tablet 30 TAKE ONE TABLET BY MOUTH EVERY 4 HOURS NEEDED FOR PAIN MAXIMUM DAILY DOSE = SIX TABLETS TAKE ONE TABLET BY MOUTH EVERY 4 HOURS NEEDED FOR PAIN MAXIMUM DAILY DOSE = SIX TABLETS SOLD: 04/10/2020 [facility] pantoprazole 40 MG Delayed Release Oral Tablet PANTOPRAZOLE SODIUM 04/10/2020 12:00:00 AM EST tablet,delayed release (DR/EC) 30 T FITO ONE TABLET BY MOUTH EVERY DAY TAKE ONE TABLET BY MOUTH EVERY DAY SOLD: 04/14/2020 [facility] pantoprazole 40 MG Delayed Release Oral Tablet [Protonix] Pr otonix 04/10/2020 12:00:00 AM EST ORAL active [facility] ([facility]) 5-325 mg 04/04/2020 12:00:00 AM EST tablet 14 TAKE ONE TABLET BY MOUTH EVERY 12 HOURS NEEDED FOR PAIN MAXIMUM DAILY DOSE = 2 TAKE ONE TABLET BY MOUTH EVERY 12 HOURS NEEDED FOR PAIN MAXIMUM DAILY DOSE = 2 SOLD: 04/04/2020 [facility] 4.5 mg/0.5 mL 04/02/2020 12:00:00 AM EST pen injector 6 INJECT 1 SUBCUTANEOUSLY ONCE A WEEK INJECT 1 SUBCUTANEOUSLY ONCE A WEEK SOLD: 04/10/2020 [facility] TRULICITY 4.5 MG/0.5ML SOPN [id number] 04/02/2020 12:00:00 AM EST active INJECT 1 SUBCUTANEOUSLY ONCE A W [place] [facility] 75 mg 04/02/2020 12:00:00 AM EST tablet 30 TAKE ONE TABLET BY MOUTH EVERY DAY TAKE ONE TABLET BY MOUTH EVERY DAY SOLD: 04/10/2020 [facility] 75 mg 04/02/2020 12:00:00 AM EST tablet 30 TAKE ONE TABLET BY MOUTH EVERY DAY TAKE ONE TABLET BY MOUTH EVERY DAY SOLD: 05/07/2020 [facility] Nystatin 100 UNT/MG Topical Powder 100,000 unit/gram NYSTATI N 04/01/2020 12:00:00 AM EST powder 15 APPLY TO AFFECTE D AREA(S) UNDER ABDOMINAL FOLD TWO TIMES A DAY NEEDED FOR RASH APPLY TO AFFECTED AREA(S) UNDER ABDOMINA L FOLD TWO TIMES A DAY NEEDED FOR RASH SOLD: 04/29/2020 [facility] Escitalopram 20 MG Oral Tablet escitalopram (LEXAPRO) 20 MG tablet escitalopram (LEXAPRO) 20 MG tablet 04/01/2020 12:00:00 AM EST 20 mg Oral active Take 20 mg by mouth daily [facility] Escitalopram 20 MG Oral Tablet ESCITALOPRAM OXALATE 04/01/2020 1 2:00:00 AM EST tablet 90 TAKE ONE TABLET BY MOUTH EVERY D AY TAKE ONE TABLET BY MOUTH EVERY DAY SOLD: 04/01/2020 [facility] Nystatin 100 UNT/MG Topical Powder 100,000 unit/gram NYSTATI N 04/01/2020 12:00:00 AM EST powder 15 APPLY TO AFFECTE D AREA(S) UNDER ABDOMINAL FOLD TWO TIMES A DAY NEEDED FOR RASH APPLY TO AFFECTED AREA(S) UNDER ABDOMINA L FOLD TWO TIMES A DAY NEEDED FOR RASH SOLD: 04/01/2020 [facility] 200 mg 04/01/2020 12:00:00 AM EST tablet 7 TAKE ONE TABLET BY MOUTH EVERY DAY TAKE ONE TABLET BY MOUTH EVERY DAY SOLD: 04/01/2020 [facility] 5-325 mg 03/28/2020 12:00:00 AM EST tablet 14 TAKE ONE TABLET BY MOUTH EVERY 12 HOURS NEEDED FOR PAIN MAXIMUM DAILY DOSE = 2 TABLETS TAKE ONE TABLET BY MOUTH EVERY 12 HOURS NEEDED FOR PAIN MAXIMUM DAILY DOSE = 2 TABLETS SOLD: 03/28/2020 [facility] Acetaminophen 325 MG / Hydrocodone Marline trate 5 MG Oral Tablet HYDROcodone- acetaminophen (NORCO) 5-325 MG per tablet HYDROcodone-acetaminophen (NORCO) 5- 325 MG per tablet 03/28/2020 12:00:00 AM EST abort ed [facility] 60 mg 03/25/2020 12:00:00 AM EST capsule,delayed release (DR/EC) 60 TAKE ONE CAPSULE BY MOUTH TWICE A DAY TAKE ONE CAPSULE BY MOUTH TWICE A DAY SOLD: 04/21/2020 [facility] 60 mg 03/25/2020 12:00:00 AM EST capsule,delayed release (DR/EC) 60 TAKE ONE CAPSULE BY MOUTH TWICE A DAY TAKE ONE CAPSULE BY MOUTH TWICE A DAY SOLD: 03/25/2020 [facility] 325 mg (65 mg iron) 03/21/2020 12:00:00 AM EST tablet 30 TAKE ONE TABLET BY MOUTH EVERY DAY ON AN EMPTY STOMACH WITH VITAMIN CAPSULE TAKE ONE TABLET BY MOUTH EVERY DAY ON AN EMPTY STOMACH WITH VITAMIN CAPSULE SOLD: 04/21/2020 [facility] 325 mg (65 mg iron) 03/21/2020 12:00:00 AM EST tablet 30 TAKE ONE TABLET BY MOUTH EVERY DAY ON AN EMPTY STOMACH WITH VITAMIN CAPSULE TAKE ONE TABLET BY MOUTH EVERY DAY ON AN EMPTY STOMACH WITH VITAMIN CAPSULE SOLD: 03/21/2020 [facility] 5-325 mg 03/21/2020 12:00:00 AM EST tablet 30 TAKE ONE TABLET BY MOUTH EVERY 4 HOURS NEEDED FOR PAIN MAXIMUM DAILY DOSE = 6 TABLETS TAKE ONE TABLET BY MOUTH EVERY 4 HOURS NEEDED FOR PAIN MAXIMUM DAILY DOSE = 6 TABLETS SOLD: 03/21/2020 [facility] Acetaminophen 325 MG / Oxycodone Hydroch loride 5 MG Oral Tablet oxyCODONE- acetaminophen (PERCOCET) 5-325 MG per tablet oxyCODONE-acetaminophen (PERCOCET) 5-325 MG per tablet 03/21/2020 12:00:00 AM EST active TAKE ONE TABLET BY MOUTH EVERY 4 HOURS NEEDED FOR PAIN MAXIMUM DAILY DOSE 6 TABLETS [facility] Acetaminophen 325 MG / Oxycodone Hydrochloride 5 MG Or al Tablet Oxycodone-Acetaminophen 03/21/2020 12:00:00 AM EST ORAL active [facility] ([facility]) 200 unit/mL (3 mL) 03/20/2020 12:00:00 AM EST insulin pen 27 INJECT 50 UNITS UNDER THE SKIN TWO TIMES A DAY INJECT 50 UNITS UNDER THE SKIN TWO TIMES A DAY SOLD: 03/20/2020 [facility] 5-325 mg 03/20/2020 12:00:00 AM EST tablet 14 TAKE ONE TABLET BY MOUTH EVERY 12 HOURS NEEDED FOR PAIN MAXIMUM DAILY DOSE = 2 TAKE ONE TABLET BY MOUTH EVERY 12 HOURS NEEDED FOR PAIN MAXIMUM DAILY DOSE = 2 SOLD: 03/20/2020 [facility] 5 mg 03/16/2020 12:00:00 AM EST tablet 90 TAKE ONE TABLET BY MOUTH EVERY DAY TAKE ONE TABLET BY MOUTH EVERY DAY SOLD: 03/17/2020 [facility] 325 mg 03/15/2020 12:00:00 AM EST tablet 30 TAKE ONE TABLET BY MOUTH EVERY DAY TAKE ONE TABLET BY MOUTH EVERY DAY SOLD: 04/14/2020 [facility] Aspirin 325 MG Oral Tablet ASPIRIN ADULT 325 MG tablet ASPIRIN ADULT 325 MG tablet 03/15/2020 12:00:00 AM EST 325 mg Oral active Take 325 mg by mouth daily [facility] 325 mg 03/15/2020 12:00:00 AM EST tablet 30 TAKE ONE TABLET BY MOUTH EVERY DAY TAKE ONE TABLET BY MOUTH EVERY DAY SOLD: 03/15/2020 [facility] 5-325 mg 03/11/2020 12:00:00 AM EST tablet 14 TAKE 1 TABLET BY MOUTH EVERY 12 HOURS NEEDED MAXIMUM DAILY DOSE = 2 TABLETS TAKE 1 TABLET BY MOUTH EVERY 12 HOURS NEEDED MAXIMUM DAILY DOSE = 2 TABLETS SOLD: 03/11/2020 [facility] 75 mg 03/08/2020 12:00:00 AM EST tablet 30 TAKE ONE TABLET BY MOUTH EVERY DAY TAKE ONE TABLET BY MOUTH EVERY DAY SOLD: 03/08/2020 [facility] 5-325 mg 03/06/2020 12:00:00 AM EST tablet 40 TAKE ONE TO TWO TABLETS BY MOUTH EVERY 6 HOURS NEEDED FOR PAIN MAXIMUM DAILY DOSE = 8 TABLETS TAKE ONE TO TWO TABLETS BY MOUTH EVERY 6 HOURS NEEDED FOR PAIN MAXIMUM DAILY DOSE = 8 TABLETS SOLD: 03/06/2020 [facility] 50 mg 03/05/2020 12:00:00 AM EST tablet 28 TAKE ONE TABLET BY MOUTH EVERY 12 HOURS NEEDED FOR PAIN MAXIMUM DAILY DOSE = 2 TABLETS TAKE ONE TABLET BY MOUTH EVERY 12 HOURS NEEDED FOR PAIN MAXIMUM DAILY DOSE = 2 TABLETS SOLD: 03/05/2020 [facility] tramadol hydrochloride 50 MG Oral Tablet Tramadol HCL 03/05/2020 12:00:00 AM EST active [facility] ([facility] Sulfamethoxazole 800 MG / Trimethoprim 160 MG Oral Tab let 800-160 mg SULFAMETHOXAZOLE/TRIMETHOPRIM 03/02/2020 12:00:00 AM EST tablet 20 TAKE ONE TABLET BY MOUTH EVERY 12 HOURS FOR 10 DAYS TAKE ONE TABLET BY MOUTH EVERY 12 HOURS FOR 10 DAYS SOLD: 03/03/2020 [facility] 10 mg 02/28/2020 12:00:00 AM EST tablet 30 TAKE ONE TABLET BY MOUTH EVERY DAY TAKE ONE TABLET BY MOUTH EVERY DAY SOLD: 04/21/2020 [facility] 10 mg 02/28/2020 12:00:00 AM EST tablet 30 TAKE ONE TABLET BY MOUTH EVERY DAY TAKE ONE TABLET BY MOUTH EVERY DAY SOLD: 02/28/2020 [facility] 400 mg 02/28/2020 12:00:00 AM EST tablet extended release 90 TAKE ONE TABLET BY MOUTH THREE TIMES A DAY TAKE ONE TABLET BY MOUTH THREE TIMES A DAY SOLD: 03/27/2020 [facility] 400 mg 02/28/2020 12:00:00 AM EST tablet extended release 90 TAKE ONE TABLET BY MOUTH THREE TIMES A DAY TAKE ONE TABLET BY MOUTH THREE TIMES A DAY SOLD: 02/28/2020 [facility] 5-325 mg 02/28/2020 12:00:00 AM EST tablet 40 TAKE ONE TO TWO TABLETS BY MOUTH EVERY 4 HOURS NEEDED FOR PAIN MAXIMUM DAILY DOSE = EIGHT TABLETS TAKE ONE TO TWO TABLETS BY MOUTH EVERY 4 HOURS NEEDED FOR PAIN MAXIMUM DAILY DOSE = EIGHT TABLETS SOLD: 02/28/2020 [facility] 10 mg 02/28/2020 12:00:00 AM EST tablet 30 TAKE ONE TABLET BY MOUTH EVERY DAY TAKE ONE TABLET BY MOUTH EVERY DAY SOLD: 03/27/2020 [facility] 200 mg 02/27/2020 12:00:00 AM EST capsule 180 TAKE ONE CAPSULE BY MOUTH TWICE A DAY MAXIMUM DAILY DOSE = 2 CAPSULES TAKE ONE CAPSULE BY MOUTH TWICE A DAY MAXIMUM DAILY DOSE = 2 CAPSULES SOLD: 02/27/2020 [facility] pregabalin 200 MG Oral Capsule pregabalin (LYRICA) 200 MG capsule pregabalin (LYRICA) 200 MG capsule 02/27/2020 12:00:00 AM EST active TAKE ONE CAPSULE BY MOUTH TWICE A DAY MAXIMUM DAILY DOSE 2 CAPSULES [facility] 5-325 mg 02/22/2020 12:00:00 AM EST tablet 14 TAKE ONE TABLET BY MOUTH EVERY 12 HOURS NEEDED FOR PAIN MAXIMUM DAILY DOSE = TWO TABLETS TAKE ONE TABLET BY MOUTH EVERY 12 HOURS NEEDED FOR PAIN MAXIMUM DAILY DOSE = TWO TABLETS SOLD: 02/23/2020 [facility] 150 mg 02/21/2020 12:00:00 AM EST capsule 60 TAKE ONE CAPSULE BY MOUTH TWICE A DAY MAXIMUM DAILY DOSE = 2 TAKE ONE CAPSULE BY MOUTH TWICE A DAY SARAHI RAIN DAILY DOSE = 2 SOLD: 02/22/2020 [facility] 250 mg 02/21/2020 12:00:00 AM EST tablet 28 TAKE ONE TABLET BY MOUTH TWICE A DAY FOR 14 DAYS TAKE ONE TABLET BY MOUTH TWICE A DAY FOR 14 DAYS SOLD: 02/21/2020 [facility] 250 mg 02/21/2020 12:00:00 AM EST tablet 84 TAKE TWO TABLETS BY MOUTH THREE TIMES A DAY FOR 14 DAYS TAKE TWO TABLETS BY MOUTH THREE TIMES A DAY FOR 14 DAY S SOLD: 02/21/2020 [facility] Ciprofloxacin 250 MG Oral Tablet ciprofloxacin (CIPRO) 250 MG tablet ciprofloxacin (CIPRO) 250 MG tablet 02/20/2020 12:00:00 AM EST 250 mg Oral active Take 1 tablet (2 50 mg total) by mouth 2 (two) times a day for 14 days [facility] Metronidazole 250 MG Oral Tablet metroNIDAZOLE (FLAGYL ) 250 MG tablet metroNIDAZOLE (FLAGYL) 250 MG tablet 02/20/2020 12:00:00 AM EST 500 m g Oral active Take 2 tablets ( 500 mg total) by mouth 3 (three) times a day for 14 days [facility] Insulin Lispro 100 UNT/ML Injectable Kaushal ution insulin lispro (HumaLOG) injection 3-40 Units insulin lispro (HumaLOG) injection 3-40 Units 02/19/20 05:00:00 PM EST Subcutaneous active 3-4 0 Units, Subcutaneous, MEALSS, First dose on Wed02/19/20 at 1700
20 units Nutritional and Correction Insulin ScaleBlood Glucose (mg/dl) <70 start hypoglycemiaprotocolGlucoseEats >=50% Eats <50%Eats Nothing (mg/dl) of meal of mealor NPO70- 63688 units 7 units 0 -46073 units 10 units 0 [id number] units 13 units 3 [id number]- [id number] units 17 units 7 -62038 units 20 units 10 [id number] units 23 units 13 [id number] [id number] units 27 units 17 units>420 call MD40 units 30 units 20 unitsTest glucose within 30 minutes of insulin administration.Administer insulin within 15 minutes (before or after) of the patient starting to eat.For patients that are NPO, use theNPO (correction) scale to cover POC glucose at 08:00, 12:00, 17:00.
[facility] Medication administered onsite Acetaminophen 325 MG / Oxycodone Hydroch loride 5 MG Oral Tablet oxyCODONE- acetaminophen (PERCOCET) 5-325 MG 1 tablet oxyCODONE-acetaminophen (PERCOCET) 5- 325 MG 1 tablet 02/19/2020 04:00:00 PM EST 1 {tbl} Oral c ompleted 1 tablet, Oral, Once, Wed02/19/20 at 1600, For 1 dose [facility] Medication administered onsite Insulin Glargine 100 UNT/ML Injectable S olution [Lantus] insulin glargine (LANTUS) injection 30 Units insulin glargine (LANTUS) injection 30 Units 02/19/2020 01:00:00 PM EST 30 U Subcutaneous active 30 Units, Subcutaneous, 2 Times Daily (Lantus), First dose on Wed02/19/20 at 1300
Basal Insulin (Lantus) Adjustments based on AM Blood GlucoseBlood GlucoseAdjustmentLess than 70 mg/dl Nursing to initiate hypoglycemia [id number] to 100 mg/dl Pharmacy to decrease total daily d ose by 20%101 to 200 mg/dl No Change
[facility] Medication administered onsite meropenem (MERREM) 2 g in sodium chloride (NS) 0.9 % 100 mL IVPB 02/19/2020 11:00:00 AM EST 2 g Intravenous active Skin and Sof t Tissue Infection 2 g, Intravenous, Administer over 3 Hours, Every 8 hours (relative), First dose on Wed02/19/20 at 1100
This anti-infective requires approval from infectious disease: Please indicate approving infectious disease physician: Pending ID Approval
Does patient meet conditions for use of this Antibiotic? (i.e.- allergy, resistance): Yes
Has an ID consult been ordered or a phone call been made for approval? No [facility] Skin and Soft Tissue Infection Medication administered onsite Insulin Lispro 100 UNT/ML Injectable Kaushal ution insulin lispro (HumaLOG) injection 1-4 Units insulin lispro (HumaLOG) injection 1-4 Units 0 08:00:00 AM EST Subcutaneous aborted 1-4 Units, Subcutaneous, MEALSS, First dose on Wed02/19/20 at 0800
2 units Nutritional and Correction Insulin ScaleBlood Glucose (mg/dl) <70 start hypoglycemiaprotocolGlucoseEats >=50% Eats <50%Eats Nothing (mg/dl) of meal of mealor NPO70- 1201 units 1 units 0 -6354 units 1 units 0 - 2202 units 1 units 0 [id number] units 2 units 1 - 3203 units 2 units 1 [id number] units 2 units 1 [id number] units 3 units 2 units>420 call MD4 units 3 units 2 unitsTest glucose within 30 minutes of insulin administration.Administer insulin within 15 minutes (before or after) of the patient starting to eat.For patients that are NPO, use theNPO (correction) scale to cover POC glucose at 08:00, 12:00, 17:00.
[facility] Medication administered onsite ferrous sulfate 325 MG Oral Tablet ferrous sulfate tab let 325 mg ferrous sulfate tablet 325 mg 02/19/2020 07:00:00 AM EST 325 mg Oral act guevara 325 mg, Oral, Daily with breakfast, First dose on 02/19/20 at 0700 [facility] Medication administered onsite pregabalin 75 MG Oral Capsule pregabalin (LYRICA) caps ule 150 mg pregabalin (LYRICA) capsule 150 mg 02/18/2020 09:00:00 PM EST 150 mg Oral active 150 mg, Oral, 2 times daily, First dose on 02/18/20 at 2100, For 7 days [facility] Medication administered onsite heparin (porcine) injection 5,000 Units [id number] 02/18/20 09:00:00 PM EST 5000 U Subcutaneous active 5,000 Units , Subcutaneous, Every 12 hours (scheduled), First dose on 02/18/20 at 2100
If platelet count is less than 100,000 or hematocrit is less than 25, or if there is a 5 point decrease in hematocrit, do not give the dose and call physician/designee.
[facility] Medication administered onsite Clotrimazole 10 MG/ML Topical Cream clot rimazole (LOTRIMIN) 1 % cream 1 application clotrimazole (LOTRIMIN) 1 % cream 1 application 2019 09:00:00 PM EST 1 {application} Topical active 1 application, Topical, 2 times daily, First dose on 02/18/20 at 2100, Until Discontinued [facility] Medication administered onsite Metoclopramide 10 MG Oral Tablet metoclopramide (MELVA N) tablet 10 mg metoclopramide (REGLAN) tablet 10 mg 02/18/2020 09:00:00 PM EST 10 mg Oral active 10 mg, Oral, 2 times daily, First dose on 02/18/20 at 2100 [facility] Medication administered onsite 60 ACTUAT formoterol fumarate 0.005 MG/A CTUAT / mometasone furoate 0.2 MG/ACTUAT Metered Dose Inhaler mometasone-formoterol (DULERA) 200-5 MCG/ACT inhaler 2 puff mometasone-formoterol (DULERA) 200-5 MCG/ACT inhaler 2 puff 02/18/2020 08:00:00 PM EST 2 {puff} Inhalation active 2 puff, Inhalation, 2 times daily, First dose on 02/18/20 at 2000 [facility] Medication administered onsite Lisinopril 5 MG Oral Tablet lisinopril (PRINIVIL,ZESTR IL) tablet 5 mg lisinopril (PRINIVIL,ZESTRIL) tablet 5 mg 02/18/2020 06:00:00 PM EST 5 mg O ral active 5 mg, Oral, Daily, First dose on 02/18/20 at 1800 [facility] Medication administered onsite meropenem (MERREM) injection 2 g [id number] 02/18/2020 06:00:00 PM EST 2 g Intravenous aborted Complicated Skin & Skin Structure I nfection 2 g, Intravenous, Every 8 hours (relative), Indications: Complicated Skin & Skin Structure Infection, First dose on 02/18/20 at 1800
Reconstitute with 20 ml STERILE WATER for injection. Administer IV push over 5 minutes. Use within 1 hour of reconstitution.
[facility] Complicated Skin & Skin Structure Infect ion Medication administered onsite pantoprazole 40 MG Delayed Release Oral Tablet pantoprazole (PROTONIX) EC tablet 40 mg pantoprazole (PROTONIX) EC tablet 40 mg 02/18/2020 06:00:[address] 40 mg Oral active Gastroesophageal Reflux Diseas e 40 mg, Oral, Daily, Indications: Gastroesophageal Reflux Disease, First dose on 02/18/20 at 1800 [facility] Gastroesophageal Reflux Disease Medication administered onsite POLYETHYLENE GLYCOL 3350 142 MG/ML Oral Solution polyethylene glycol (GLYCOLAX) packet 17 g polyethylene glycol (GLYCOLAX) packet 17 g 02/18/2020 06:00:00 PM EST 17 g Oral active 17 g, Or al, Daily, First dose on 02/18/20 at 1800
hold for loose stools
[facility] Medication administered onsite Pentoxifylline 400 MG Extended Release O ral Tablet pentoxifylline (TRENTal) CR tablet 400 mg pentoxifylline (TRENTal) CR tablet 400 mg 02/18/2020 0 6:00:00 PM EST 400 mg Oral active 400 mg, Oral, 3 times daily with meals, First dose on 02/18/20 at 1800 [facility] Medication administered onsite Bisacodyl 10 MG Rectal Suppository bisacodyl (DULCOLAX ) suppository 10 mg bisacodyl (DULCOLAX) suppository 10 mg 02/18/2020 06:00:00 PM EST 10 mg Rectal active 10 mg, Rectal, Daily, First dose on 02/18/20 at 1800
hold for loose stools
[facility] Medication administered onsite atorvastatin 80 MG Oral Tablet atorvastatin (LIPITOR) tablet 80 mg atorvastatin (LIPITOR) tablet 80 mg 02/18/2020 06:00:00 PM EST 80 mg Oral active 80 mg, Oral, Daily, First dose on 02/18/20 at 1800 [facility] Medication administered onsite normal saline flush 0.9 % injection 10 mL [id number] 02/18/2020 06:00:00 PM EST 10 mL Intravenous active 10 m L, Intravenous, Every 8 hours (scheduled), First dose on 02/18/20 at 1800
Flush with 10 mL NS prior and post medication administration.Flush with 10 mL NS prior to blood specimen collection and flush with 20 mL to clear solution/drug post blood specimen collection
[facility] Medication administered onsite DAILY CHE (THERAGRAN) 1 tablet [id number] 02/18/2020 06:00:00 PM EST 1 {tbl} Oral active 1 tablet, Oral, Daily, First dose on 02/18/20 at 1800 [facility] Medication administered onsite Escitalopram 10 MG Oral Tablet escitalopram (LEXAPRO) tablet 10 mg escitalopram (LEXAPRO) tablet 10 mg 02/18/2020 06:00:00 PM EST 10 mg Oral active 10 mg, Oral, Daily, First dose on 02/18/20 at 1800 [facility] Medication administered onsite 24 HR Bupropion Hydrochloride 150 MG Ext ended Release Oral Tablet buPROPion (WELLBUTRIN XL) 24 hr tablet 150 mg buPROPion (WELLBUTRIN XL) 24 hr tablet 1 50 mg 02/18/2020 06:00:00 PM EST 150 mg Oral active 150 mg, Oral, Daily, First dose on 02/18/20 at 1800 [facility] Medication administered onsite clopidogrel 75 MG Oral Tablet clopidogrel (PLAVIX) tab let 75 mg clopidogrel (PLAVIX) tablet 75 mg 02/18/2020 06:00:00 PM EST 75 mg Oral active 75 mg, Oral, Daily, First dose on 02/18/20 at 1800 [facility] Medication administered onsite Acetaminophen 325 MG / Oxycodone Hydroch loride 5 MG Oral Tablet oxyCODONE- acetaminophen (PERCOCET) 5-325 MG 1 tablet oxyCODONE-acetaminophen (PERCOCET) 5- 325 MG 1 tablet 02/18/2020 05:13:38 PM EST 1 {tbl} Oral a ctive 1 tablet, Oral, Every 4 hours PRN, moderate pain (4-6), Starting 02/18/20 at 1713, For 7 days [facility] Medication administered onsite Docusate Sodium 100 MG Oral Capsule docusate sodium (C OLACE) capsule 200 mg docusate sodium (COLACE) capsule 200 mg 02/18/2020 05:11:55 PM EST 200 mg Oral active 200 mg, Oral, 2 times daily PRN, constipation, Starting 02/18/20 at 1711
hold for loose stools
[facility] Medication administered onsite Cyclobenzaprine hydrochloride 10 MG Oral Tablet cyclobenzaprine (FLEXERIL) tablet 5 mg cyclobenzaprine (FLEXERIL) tablet 5 mg 02/18/2020 05:11:52 PM ES T 5 mg Oral active 5 mg, Oral , 2 times daily PRN, muscle spasms, Starting 02/18/20 at 1711 [facility] Medication administered onsite Albuterol 0.83 MG/ML Inhalant Solution a lbuterol (PROVENTIL) nebulizer solution 2.5 mg albuterol (PROVENTIL) nebulizer solution 2.5 mg 2019 05:11:19 PM EST 2.5 mg active 2.5 mg, Nebulization, RT every 4 hours as needed, wheezing, shortness of breath, Starting 02/18/20 at 1711 [facility] Medication administered onsite 17 gram/dose 02/17/2020 12:00:00 AM EDT powder 238 TAKE 17G MIXED IN FLUID BY MOUTH DAILY TAKE 17G MIXED IN FLUID BY MOUTH DAILY SOLD: 02/19/2020 [facility] 17 gram/dose 02/17/2020 12:00:00 AM EDT powder 238 TAKE 17G MIXED IN FLUID BY MOUTH DAILY TAKE 17G MIXED IN FLUID BY MOUTH DAILY SOLD: 03/01/2020 [facility] 17 gram/dose 02/17/2020 12:00:00 AM EDT powder 238 TAKE 17G MIXED IN FLUID BY MOUTH DAILY TAKE 17G MIXED IN FLUID BY MOUTH DAILY SOLD: 03/13/2020 [facility] 17 gram/dose 02/17/2020 12:00:00 AM EDT powder 238 TAKE 17G MIXED IN FLUID BY MOUTH DAILY TAKE 17G MIXED IN FLUID BY MOUTH DAILY SOLD: 03/25/2020 [facility] DAILY CHE (THERAGRAN) per tablet [id number] 02/17/2020 12:00:00 AM EDT 1 {tbl} Oral aborted Take 1 tablet by mouth osiel castro [facility] Meropenem 1 GM Meropenem 02/16/2020 01:00:00 AM EDT 2.0 {gm} completed [facility] ([facility]) Nystatin Powder Nystatin Powder 02/16/2020 01:00:00 AM EDT 0 {un it} completed [facility] ([facility]) Trulicity 0.75 MG/0.5ML Trulicity 02/16/2020 01:00:00 AM EDT 1.5 {mg} completed [facility] ([facility]) Tresiba FlexTouch 100 UNIT/ML Tresiba FlexTouch 02/16/2020 01:00:00 AM EDT 50.0 {Units} completed [facility] ([facility]) Albuterol Sulfate HFA 108 (90 Base) MCG/ACT Albuterol Sulfat e HFA 02/16/2020 01:00:00 AM EDT completed [facility] ([facility]) Admelog SoloStar 100 UNIT/ML Admelog SoloStar 02/16/2020 01:00:00 AM E DT completed [facility] ([facility]) Atorvastatin Calcium 80 MG Atorvastatin Calcium 02/16/2020 01:00:00 A M EDT completed [facility] ( [facility]) Breo Ellipta 100-25 MCG/INH Breo Ellipta 02/16/2020 01:00:00 AM EDT completed [facility] ([facility]) Aspirin Aspirin 02/16/2020 01:00:00 AM EDT 0 {mg} compl eted [facility] ([facility]) BuPROPion HBr ER 522 MG BuPROPion HBr ER 02/16/2020 01:00:00 AM EDT 150.0 {mg} completed [facility] ([facility]) MiraLax 17 GM MiraLax 02/16/2020 01:00:00 AM EDT c ompleted [facility] ([facility]) Oxycodone & Tylenol Oxycodone & Tylenol 02/16/2020 01:00:00 AM EDT 0 {mg} completed [facility] ([facility]) Bisacodyl Supp. Bisacodyl Supp. 02/16/2020 01:00:00 AM EDT 0 {mg } completed [facility] ([facility]) Multivitamin Multivitamin 02/16/2020 01:00:00 AM EDT 0 {mg} completed [facility] ([facility]) Normal Saline Flush 0.9 % Normal Saline Flush 02/16/2020 01:00:00 AM E DT completed [facility] ([facility]) Metoclopramide Metoclopramide 02/16/2020 01:00:00 AM EDT 0 {mg} completed [facility] ([facility]) Loratadine 10 MG Loratadine 02/16/2020 01:00:00 AM EDT completed [facility] ([facility] ) Lisinopril 5 MG Lisinopril 02/16/2020 01:00:00 AM EDT completed [facility] ([facility]) Ferrous Sulfate Ferrous Sulfate 02/16/2020 01:00:00 AM EDT 0 {mg } completed [facility] ([facility]) Escitalopram Oxalate 10 MG Escitalopram Oxalate 02/16/2020 01:00:00 A M EDT completed [facility] ( [facility]) Cyclobenzaprine Cyclobenzaprine 02/16/2020 01:00:00 AM EDT 0 {mg } completed [facility] ([facility]) Docusate Sodium Docusate Sodium 02/16/2020 01:00:00 AM EDT 0 {mg } completed [facility] ([facility]) Omeprazole 40 MG Omeprazole 02/16/2020 01:00:00 AM EDT completed [facility] ([facility] ) Ondansetron HCl 4 MG Ondansetron HCl 02/16/2020 01:00:00 AM EDT completed [facility] ([facility]) Heparin Heparin 02/16/2020 01:00:00 AM EDT 0 {ml} compl eted [facility] ([facility]) Steglatro 15 MG Steglatro 02/16/2020 01:00:00 AM EDT completed [facility] ([facility]) Clopidogrel Bisulfate 75 MG Clopidogrel Bisulfate 02/16/2020 01:00: 00 AM EDT completed [facility] ([facility]) Pentoxifylline ER 400 MG Pentoxifylline ER 02/16/2020 01:00:00 AM E DT 400.0 {mg} completed [facility] ([facility]) Pregabalin 150 MG Pregabalin 02/16/2020 01:00:00 AM EDT completed [facility] ([facility] ) meropenem (MERREM) 1 g injection [id number] 02/16/2020 12:00:00 AM E DT aborted Infuse 2gm iv every 8 myranda rs daily until 03/21/20 [facility] 3 ML heparin sodium, porcine 100 UNT/ML Prefilled Syringe heparin 100 UNIT/ML SOLN heparin 100 UNIT/ML SOLN 02/16/2020 12:00:00 AM EDT aborted Infuse 5 ml After dose and as needed to red lumen if applicable [facility] Sodium Chloride Flush (NORMAL SALINE FLUSH) 0.9 % SOLN injec tion [id number] 02/16/2020 12:00:00 AM EDT aborted Infuse 10 ml before and after dose and prn [facility] Chlorhexidine Gluconate (BIOPATCH PROTECTIVE DISK/CHG) (Geovanna buchanan) [facility] [id number] 02/16/2020 12:00:00 AM EDT aborted Apply one patch weekly with dressing change and prn [facility] 10 mg 02/16/2020 12:00:00 AM EDT suppository 12 INSERT ONE SUPPOSITORY RECTALLY EVERY DAY INSERT ONE SUPPOSITORY RECTALLY EVERY DAY SOLD: 02/16/2020 [facility] meropenem (MERREM) 1 g injection [id number] 02/16/2020 12:00:00 AM E DT active Infuse 2gm iv every 8 myranda rs daily until 03/21/20 [facility] 400 mcg 02/16/2020 12:00:00 AM EDT tablet 30 TAKE ONE TABLET BY MOUTH EVERY DAY TAKE ONE TABLET BY MOUTH EVERY DAY SOLD: 02/16/2020 [facility] 5-325 mg 02/16/2020 12:00:00 AM EDT tablet 30 TAKE ONE TO TWO TABLETS BY MOUTH EVERY 4 HOURS NEEDED MAXIMUM DAILY DOSE = 8 TABLETS TAKE ONE TO TWO TABLETS BY MOUTH EVERY 4 HOURS NEEDED MAXIMUM DAILY DOSE = 8 TABLETS SOLD: 02/16/2020 [facility] Bisacodyl 10 MG Rectal Suppository Bisacodyl Laxative 02/15 12:00:00 AM EDT active [facility] ([facility]) Acetaminophen 325 MG / Oxycodone Hydrochloride 5 MG Or al Tablet Oxycodone-Acetaminophen 02/16/2020 12:00:00 AM EDT ORAL completed [facility] ([facility]) 3 ML heparin sodium, porcine 100 UNT/ML Prefilled Syri nge Heparin Sodium Lock Flush 02/16/2020 12:00:00 AM EDT completed [facility] ([facility]) Meropenem-Sodium Chloride Meropenem-Sodium Chloride 02/16/2020 1 2:00:00 AM EDT completed [facility] ([facility]) 2.5 ML Sodium Chloride 9 MG/ML Prefilled Syringe Sodium Chlo ride Flush 02/16/2020 12:00:00 AM EDT completed [facility] ([facility]) POLYETHYLENE GLYCOL 3350 142 MG/ML Oral Solution Polyethylen e Glycol 3350 02/16/2020 12:00:00 AM EDT ORAL active [facility] ([facility] 400 mcg 02/16/2020 12:00:00 AM EDT tablet 30 TAKE ONE TABLET BY MOUTH EVERY DAY TAKE ONE TABLET BY MOUTH EVERY DAY SOLD: 03/15/2020 [facility] 325 mg 02/16/2020 12:00:00 AM EDT tablet,delayed release (DR/EC) 30 TAKE 1 TABLET BY MOUTH ONCE TAKE 1 TABLET BY MOUTH ONCE SOLD: 02/16/2020 [facility] Sodium Chloride Flush (NORMAL SALINE FLUSH) 0.9 % SOLN injec tion [id number] 02/16/2020 12:00:00 AM EDT aborted Infuse 10 ml before and after dose and prn [facility] 3 ML heparin sodium, porcine 100 UNT/ML Prefilled Syringe heparin 100 UNIT/ML SOLN heparin 100 UNIT/ML SOLN 02/16/2020 12:00:00 AM EDT active Infuse 5 ml After dose and as needed to red lumen if applicable [facility] Chlorhexidine Gluconate (BIOPATCH PROTECTIVE DISK/CHG) (Geovanna buchanan) [facility] [id number] 02/16/2020 12:00:00 AM EDT active Apply one patch weekly with dressing change and prn [facility] Aspirin 325 MG Oral Tablet ASPIRIN ADULT 325 MG tablet ASPIRIN ADULT 325 MG tablet 02/16/2020 12:00:00 AM EDT 325 mg Oral active Take 1 tablet (325 mg total) by mouth once for 1 dose [facility] POLYETHYLENE GLYCOL 3350 142 MG/ML Oral Solution polyethylene glycol (GLYCOLAX) 17 g packet polyethylene glycol (GLYCOLAX) 17 g packet 02/16/2020 12:00:00 AM EDT 17 g Oral aborted Take 17 g by russel th daily [facility] Acetaminophen 325 MG / Oxycodone Hydroch loride 5 MG Oral Tablet oxyCODONE- acetaminophen (PERCOCET) 5-325 MG per tablet oxyCODONE-acetaminophen (PERCOCET) 5-325 MG per tablet 02/16/2020 12:00:00 AM EDT Oral active Take 1-2 tablets by mouth every 4 (four) hours as needed Max Daily Amount: 8 tablets [facility] meropenem 2 g in sodium chloride 0.9 % 100 mL IVPB 02/16/2020 12:00:00 AM EDT 2 g Intravenous aborted Osteomyelitis Infuse 2 g into a venous catheter every 8 (eight) hours [facility] Osteomyelitis Bisacodyl 10 MG Rectal Suppository bisacodyl (DULCOLAX ) 10 MG suppository bisacodyl (DULCOLAX) 10 MG suppository 02/16/2020 12:00:00 AM EDT 10 mg Rectal aborted Insert 1 suppository (10 mg total) into the rectum daily [facility] Insulin Glargine 100 UNT/ML Injectable S olution [Lantus] insulin glargine (LANTUS) injection 30 Units insulin glargine (LANTUS) injection 30 Units 02/15/2020 09:00:00 PM EDT 30 U Subcutaneous active 30 Units, Subcutaneous, 2 Times Daily (Lantus), First dose on Em 02/15/20 at 2100
Basal Insulin (Lantus) Adjustments based on AM Blood GlucoseBlood GlucoseAdjustmentLess than 70 mg/dl Nursing to initiate hypoglycemia [id number] to 100 mg/dl Pharmacy to decrease total daily d ose by 20%101 to 200 mg/dl No Change
[facility] Medication administered onsite Insulin Lispro 100 UNT/ML Injectable Kaushal ution insulin lispro (HumaLOG) injection 3-40 Units insulin lispro (HumaLOG) injection 3-40 Units 02/15/20 05:00:00 PM EDT Subcutaneous active 3-4 0 Units, Subcutaneous, MEALSS, First dose on Em 02/15/20 at 1700
20 units Nutritional and Correction Insulin ScaleBlood Glucose (mg/dl) <70 start hypoglycemiaprotocolGlucoseEats >=50% Eats <50%Eats Nothing (mg/dl) of meal of mealor NPO70- 31998 units 7 units 0 [id number] units 10 units 0 [id number] units 13 units 3 [id number]- 40586 units 17 units 7 [id number] units 20 units 10 [id number] units 23 units 13 - 17686 units 27 units 17 units>420 call MD40 units 30 units 20 unitsTest glucose within 30 minutes of insulin administration.Administer insulin within 15 minutes (before or after) of the patient starting to eat.For patients that are NPO, use theNPO (correction) scale to cover POC glucose at 08:00, 12:00, 17:00.
[facility] Medication administered onsite 5-325 mg 02/15/2020 12:00:00 AM EDT tablet 14 TAKE ONE TABLET BY MOUTH EVERY 12 HOURS NEEDED FOR PAIN MAXIMUM DAILY DOSE = 2 TAKE TABLETS TAKE ONE TABLET BY MOUTH EVERY 12 HOURS NEEDED FOR PAIN MAXIMUM DAILY DOSE = 2 TAKE TABLETS SOLD: 02/15/2020 [facility] Insulin Glargine 100 UNT/ML Injectable S olution [Lantus] insulin glargine (LANTUS) injection 26 Units insulin glargine (LANTUS) injection 26 Units 02/14/2020 09:00:00 PM EDT 26 U Subcutaneous aborted 26 Units, Subcutaneous, 2 Times Daily (Lantus), First dose on Wed02/14/20 at 2100
Basal Insulin (Lantus) Adjustments based on AM Blood GlucoseBlood GlucoseAdjustmentLess than 70 mg/dl Nursing to initiate hypoglycemia [id number] to 100 mg/dl Pharmacy to decrease total daily d ose by 20%101 to 200 mg/dl No Change
[facility] Medication administered onsite Morphine Sulfate (PF) injection 2 mg [id number] 02/13/2020 06:36: 23 PM EDT 2 mg Intravenous active 2 mg, In travenous, Every 2 hour PRN, severe pain (7-10), Starting Wed02/13/20 at 1836, For 4 days [facility] Medication administered onsite meropenem (MERREM) 2 g in sodium chloride (NS) 0.9 % 100 mL IVPB 02/13/2020 02:00:00 PM EDT 2 g Intravenous active Osteomyeliti s 2 g, Intravenous, Every 8 hours (relative), First dose on Wed02/13/20 at 1400
This anti- infective requires approval from infectious disease: Please indicate approving infectious disease physician: Dr. Levine [facility] Osteomyelitis Medication administered onsite Morphine Sulfate (PF) injection 2 mg [id number] 02/13/2020 12:00: 00 AM EDT 2 mg Intravenous completed 2 mg, In travenous, Once, Wed02/13/20 at 0000, For 1 dose [facility] Medication administered onsite dextrose 5 % and sodium chloride 0.45 % infusion [id number] 0 02/12/2020 07:00:00 PM EDT Intravenous aborted at 75 mL/hr, Intravenous, Continuous, Starting Wed02/12/20 at 1900
Saline lock with good PO
[facility] Medication administered onsite Morphine Sulfate (PF) injection 2 mg [id number] 02/12/2020 06:31: 18 PM EDT 2 mg Intravenous completed 2 mg, In travenous, Every 2 hour PRN, severe pain (7-10), severe pain if oral ineffective after 1 hour, Starting Wed02/12/20 at 1831, For 1 day [facility] Medication administered onsite fentaNYL Citrate (PF) (SUBLIMAZE) injection 25 mcg [id number] 02/12/2020 05:33:37 PM EDT 25 ug Intravenous aborted 25 mcg, Intravenous, Every 5 min PRN, moderate pain (4 to 6), max 8 doses, Starting Wed02/12/20 at 1733, For 2 hours, PACU (only) [facility] Medication administered onsite Ceftazidime 1000 MG Injection cefTAZidime (FORTAZ) inj ection 2 g cefTAZidime (FORTAZ) injection 2 g 02/12/2020 04:00:00 PM EDT 2 g Intravenous aborted Osteomyelitis 2 g, Intravenous, Every 8 ho urs (relative), First dose on 02/12/20 at 1600
Reconstitute with 10 ml STERILE WATER for injection. Administer IV push over 3 minutes. Use within 1 hour of reconstitution
[facility] Osteomyelitis Medication administered onsite dextrose 5 % and sodium chloride 0.45 % infusion [id number] 0 02/12/2020 12:00:00 AM EDT Intravenous aborted at 75 mL/hr, Intravenous, Continuous, Starting Wed02/12/20 at 0000
Switch to NS if BG >300
[facility] Medication administered onsite Insulin Glargine 100 UNT/ML Injectable S olution [Lantus] insulin glargine (LANTUS) injection 24 Units insulin glargine (LANTUS) injection 24 Units 02/11/2020 09:00:00 PM EDT 24 U Subcutaneous aborted 24 Units, Subcutaneous, 2 Times Daily (Lantus), First dose on 02/11/20 at 2100
Basal Insulin (Lantus) Adjustments based on AM Blood GlucoseBlood GlucoseAdjustmentLess than 70 mg/dl Nursing to initiate hypoglycemia [id number] to 100 mg/dl Pharmacy to decrease total daily d ose by 20%101 to 200 mg/dl No Change
[facility] Medication administered onsite Insulin Lispro 100 UNT/ML Injectable Kaushal ution insulin lispro (HumaLOG) injection 3-32 Units insulin lispro (HumaLOG) injection 3-32 Units 02/11/20 12:00:00 PM EDT Subcutaneous aborted 3-3 2 Units, Subcutaneous, MEALSS, First dose on 02/11/20 at 1200
16 units Nutritional and Correction Insulin ScaleBlood Glucose (mg/dl) <70 start hypoglycemiaprotocolGlucoseEats >=50% Eats <50%Eats Nothing (mg/dl) of meal of mealor NPO70- 62657 units 5 units 0 [id number] units 8 units 0 [id number] units 11 units 3 [id number]- 21576 units 13 units 5 [id number] units 16 units 8 [id number] units 19 units 11 - 72942 units 21 units 13 units>420 call MD32 units 24 units 16 unitsTest glucose within 30 minutes of insulin administration.Administer insulin within 15 minutes (before or after) of the patient starting to eat.For patients that are NPO, use theNPO (correction) scale to cover POC glucose at 08:00, 12:00, 17:00.
[facility] Medication administered onsite Insulin Lispro 100 UNT/ML Injectable Kaushal ution insulin lispro (HumaLOG) injection 2-28 Units insulin lispro (HumaLOG) injection 2-28 Units 02/10/20 20 12:00:00 PM EDT Subcutaneous aborted 2-2 8 Units, Subcutaneous, MEALSS, First dose on Wed02/10/20 at 1200
14 units Nutritional and Correction Insulin ScaleBlood Glucose (mg/dl) <70 start hypoglycemiaprotocolGlucoseEats >=50% Eats <50%Eats Nothing (mg/dl) of meal of mealor NPO70- 1209 units 5 units 0 [id number] units 7 units 0 [id number]- 32769 units 9 units 2 [id number] units 12 units 5 -84181 units 14 units 7 - 20622 units 16 units 9 [id number] units 19 units 12 units>420 call MD28 units 21 units 14 unitsTest glucose within 30 minutes of insulin administration.Administer insulin within 15 minutes (before or after) of the patient starting to eat.For patients that are NPO, use theNPO (correction) scale to cover POC glucose at 08:00, 12:00, 17:00.
[facility] Medication administered onsite Docusate Sodium 100 MG Oral Capsule docusate sodium (C OLACE) capsule 100 mg docusate sodium (COLACE) capsule 100 mg 02/09/2020 09:00:00 PM EDT 100 mg Oral active 100 mg, Oral, 2 times daily, First dose on Wed02/09/20 at 2100
hold for loose stools
[facility] Medication administered onsite vancomycin HCl (VANCOCIN) 1,250 mg in dextrose 5 % 250 mL IV PB 02/09/2020 06:00:00 PM EDT 1250 mg Intravenous aborted Sk in and Soft Tissue Infection 1,250 mg, Intravenous, Admin ister over 90 Minutes, Every 12 hours (relative), First dose on Wed02/09/20 at 1800 [facility] Skin and Soft Tissue Infection Medication administered onsite Ceftazidime 2000 MG Injection cefTAZidime (FORTAZ) inj ection 2 g cefTAZidime (FORTAZ) injection 2 g 02/09/2020 02:00:00 PM EDT 2 g Intravenous aborted Osteomyelitis 2 g, Intravenous, Every 8 ho urs (relative), First dose on Wed02/09/20 at 1400
Reconstitute with 10 ml STERILE WATER for injection. Administer IV push over 5 minutes. Use within 1 hour of reconstitution
[facility] Osteomyelitis Medication administered onsite Metronidazole 5 MG/ML Injectable Solution metroNIDAZOL E (FLAGYL) IVPB 500 mg metroNIDAZOLE (FLAGYL) IVPB 500 mg 02/09/2020 02:00:00 PM EDT 50 0 mg Intravenous aborted Clostridioides Difficile Associated Diarrhea 500 mg, Intravenous, Administer over 60 Minutes, Every 8 hours (relative), First dose on Wed02/09/20 at 1400 [facility] Clostridioides Difficile Associated Diar trae Medication administered onsite Bisacodyl 10 MG Rectal Suppository bisacodyl (DULCOLAX ) suppository 10 mg bisacodyl (DULCOLAX) suppository 10 mg 02/09/2020 01:00:00 PM EDT 10 mg Rectal active 10 mg, Rectal, Daily, First dose on Wed02/09/20 at 1300
hold for loose stools
[facility] Medication administered onsite POLYETHYLENE GLYCOL 3350 142 MG/ML Oral Solution polyethylene glycol (GLYCOLAX) packet 17 g polyethylene glycol (GLYCOLAX) packet 17 g 02/09/2020 01:00:00 PM EDT 17 g Oral active 17 g, Or al, Daily, First dose on Wed02/09/20 at 1300
hold for loose stools
[facility] Medication administered onsite iodixanol (VISIPAQUE) 320 MG/ML injection 150 mL [id number] 02/09/2020 10:06:16 AM EDT 150 mL Intra-arterial completed 150 mL, Intra-arterial, Once in imaging, contrast, Starting Wed02/09/20 at 1006, For 1 dose [facility] Medication administered onsite heparin (porcine) injection [id number] 02/09/2020 09:24:22 AM EDT completed Code/trauma/sedation medication, Starting Wed02/09/20 at 0924 [facility] Medication administered onsite 2 ML Midazolam 1 MG/ML Injection midazolam (VERSED) in jection midazolam (VERSED) injection 02/09/2020 09:08:16 AM EDT Intravenous co mpleted Intravenous, Code/trauma/sedation medication, Starting Wed02/09/20 at 0908 [facility] Medication administered onsite fentaNYL Citrate (PF) (SUBLIMAZE) injection [id number] 02/09/2020 09:08:10 AM EDT Intravenous completed In travenous, Code/trauma/sedation medication, Starting Wed02/09/20 at 0908 [facility] Medication administered onsite DAILY CHE (THERAGRAN) 1 tablet [id number] 02/09/2020 09:00:00 AM EDT 1 {tbl} Oral active 1 tablet, Oral, Daily, First dose on Wed02/09/20 at 0900 [facility] Medication administered onsite Magnesium Chloride 0.48646 MEQ/ML / Pota ssium Chloride 0.0497 MEQ/ML / Sodium Acetate 0.0163 MEQ/ML / Sodium Chloride 0.0899 MEQ/ML / Sodium gluconate 5.02 MG/ML Injectable Solution [Normosol-R] electrolyte-R (NORMOSOL-R/PLASMALYTE-R) solution electrolyte-R (NORMOSOL-R/PLASMALYTE-R) solution 02/08 03:00:00 AM EDT Intravenous aborted at 7 5 mL/hr, Intravenous, Continuous, Starting Wed02/09/20 at 0300 [facility] Medication administered onsite POLYETHYLENE GLYCOL 3350 142 MG/ML Oral Solution polyethylene glycol (GLYCOLAX) packet 17 g polyethylene glycol (GLYCOLAX) packet 17 g 02/08/2020 02:00:00 PM EDT 17 g Oral aborted 17 g, Or al, Daily, First dose on Em 02/08/20 at 1400, Post-op
Start 2nd POD and continue until result.
[facility] Medication administered onsite Docusate Sodium 100 MG Oral Capsule docusate sodium (C OLACE) capsule 100 mg docusate sodium (COLACE) capsule 100 mg 02/08/2020 02:00:00 PM EDT 100 mg Oral aborted 100 mg, Oral, 2 times daily, First dose on Em 02/08/20 at 1400, Post-op
hold for loose stools
[facility] Medication administered onsite normal saline flush 0.9 % injection 3 mL [id number] 02/08/2020 02:00:00 PM EDT 3 mL Intravenous aborted 3 mL , Intravenous, PROTOCOL, First dose on Em 02/08/20 at 1400, Post-op
May convert IV to a saline lock when taking in good p.o. intake (minimally 600 mL).
[facility] Medication administered onsite Escitalopram 10 MG Oral Tablet escitalopram (LEXAPRO) tablet 10 mg escitalopram (LEXAPRO) tablet 10 mg 02/08/2020 02:00:00 PM EDT 10 mg Oral aborted 10 mg, Oral, Daily, First dose on Em 02/08/20 at 1400 [facility] Medication administered onsite oxyCODONE-acetaminophen (PERCOCET) 5-325 MG 1 tablet 02/08/2020 01:15:41 PM EDT 1 {tbl} Oral active [Order 1 Start] Name: oxyCODONE-acetaminophen (PERCOCET) 5-325 MG 1 tablet Signed Summary: 1 tablet, Oral, Every 4 hours PRN, moderate pain (4-6), Starting Em 02/08/20 at 1315, For 3 days [Order 1 End] [Order 2 Start] Name: oxyCODONE-acetaminophen (PERCOCET) 5-325 MG 2 tablet Signed Summary: 2 tablet, Oral, Every 4 hours PRN, severe pain (7-10), Starting Em 02/08/20 at 1315, For 3 days [Order 2 End] [facility] Medication administered onsite Nitroglycerin 0.4 MG Sublingual Tablet n itroglycerin (NITROSTAT) SL tablet 0.4 mg nitroglycerin (NITROSTAT) SL tablet 0.4 mg 02/08/2020 01:15:40 P M EDT 0.4 mg Sublingual active 0.4 mg, S ublingual, Every 5 min PRN, chest pain, Starting Em 02/08/20 at 1315
For angina on CABG patient. Notify MD/PA/SPRAY DRY OPERATOR.
[facility] Medication administered onsite ondansetron (ZOFRAN) injection 4 mg [id number] 02/08/2020 01:15:4 0 PM EDT 4 mg Intravenous active 4 mg, In travenous, Every 6 hours PRN, nausea, vomiting, Starting Em 02/08/20 at 1315
If no response in 15-30 minutes, give metoclopramide 10 mg IV x 1 then q6h prn N/V.
[facility] Medication administered onsite potassium chloride SA (K-DUR,KLOR-CON) CR tablet 40 mEq [id number] 02/08/2020 01:15:40 PM EDT 40 meq Oral active 40 mEq, Oral, As needed, Serum K+ 3.5-3.8, Starting Em 02/08/20 at 1315
For serum creatinine (SCR) 0.8 to 1.5
[facility] Medication administered onsite 50 ML Magnesium Sulfate 40 MG/ML Injecti on magnesium sulfate 2 g in sterile diluent magnesium sulfate 2 g in sterile diluent 02/08/2020 01:15:40 PM EDT 2 g Intravenous active 2 g, Int ravenous, at 50 mL/hr, As needed, serum Mg 1.5-1.8, Starting Em 02/08/20 at 1315
Give 2 grams magnesium sulfate IV x 2 runs over 1 hour each.For serum creatinine (SCR) 0.8 to 1.5
[facility] Medication administered onsite potassium chloride SA (K-DUR,KLOR-CON) CR tablet 20 mEq [id number] 02/08/2020 01:15:40 PM EDT 20 meq Oral active 20 mEq, Oral, As needed, Serum K+ 3.9-4.1, Starting Em 02/08/20 at 1315
For serum creatinine (SCR) 0.8 to 1.5
[facility] Medication administered onsite 50 ML Magnesium Sulfate 40 MG/ML Injecti on magnesium sulfate 2 g in sterile diluent magnesium sulfate 2 g in sterile diluent 02/08/2020 01:15:40 PM EDT 2 g Intravenous active 2 g, Int ravenous, at 50 mL/hr, As needed, serum Mg 1.9-2.1, Starting Em 02/08/20 at 1315
Give 2 grams magnesium sulfate IV x 1 run over 1 hour.For serum creatinine (SCR) 0.8 to 1.5
[facility] Medication administered onsite Aluminum Hydroxide 64 MG/ML Oral Suspens ion aluminum hydroxide (ALTERNAGEL) suspension 15 mL aluminum hydroxide (ALTERNAGEL) suspension 15 mL 02/07 01:15:39 PM EDT 15 mL Oral active 15 mL, Oral, Every 4 hours PRN, for indigestion/ gas, Starting Em 02/08/20 at 1315 [facility] Medication administered onsite Albuterol 0.83 MG/ML Inhalant Solution a lbuterol (PROVENTIL) nebulizer solution 2.5 mg albuterol (PROVENTIL) nebulizer solution 2.5 mg 2019 01:15:39 PM EDT 2.5 mg active 2.5 mg, Nebulization, RT every 2 hours as needed, wheezing, shortness of breath, Starting Em 02/08/20 at 1315 [facility] Medication administered onsite Escitalopram 10 MG Oral Tablet escitalopram (LEXAPRO) tablet 10 mg escitalopram (LEXAPRO) tablet 10 mg 02/08/2020 09:00:00 AM EDT 10 mg Oral active 10 mg, Oral, Daily, First dose on Em 02/08/20 at 0900 [facility] Medication administered onsite normal saline flush 0.9 % injection 10 mL [id number] 02/07/2020 03:00:00 PM EDT 10 mL Intravenous active 10 m L, Intravenous, Every 8 hours (scheduled), First dose on Wed02/07/20 at 1500
Flush with 10 mL NS prior and post medication administration.Flush with 10 mL NS prior to blood specimen collection and flush with 20 mL to clear solution/drug post blood specimen collection
[facility] Medication administered onsite Insulin Glargine 100 UNT/ML Injectable S olution [Lantus] insulin glargine (LANTUS) injection 20 Units insulin glargine (LANTUS) injection 20 Units 02/07/2020 10:00:00 AM EDT 20 U Subcutaneous aborted 20 Units, Subcutaneous, 2 Times Daily (Lantus), First dose on Wed02/07/20 at 1000
Basal Insulin (Lantus) Adjustments based on AM Blood GlucoseBlood GlucoseAdjustmentLess than 70 mg/dl Nursing to initiate hypoglycemia [id number] to 100 mg/dl Pharmacy to decrease total daily d ose by 20%101 to 200 mg/dl No Change
[facility] Medication administered onsite Insulin Lispro 100 UNT/ML Injectable Kaushal ution insulin lispro (HumaLOG) injection 2-24 Units insulin lispro (HumaLOG) injection 2-24 Units 02/07/20 09:00:00 AM EDT Subcutaneous aborted 2-2 4 Units, Subcutaneous, MEALSS, First dose on Wed02/07/20 at 0900
RESISTANT 12 units Nutritional and Correction Insulin ScaleBlood Glucose (mg/dl) <70 start hypoglycemiaprotocolGl ucoseEats >=50% Eats <50%Eats Nothing (mg/dl) of meal of mealor [id number] units 4 units 0 - 03044 units 6 units 0 [id number] units 8 units 2 [id number] units 10 units 4 [id number]- 59144 units 12 units 6 [id number] units 14 units 8 [id number] units 16 units 10 units>420 call MD24 units 18 units 12 unitsTest glucose within 30 minutes of insulin administration.Administer insulin within 15 minutes (before or after) of the patient starting to eat.For patients that are NPO, use theNPO (correction) scale to cover POC glucose at 08:00, 12:00, 17:00.
[facility] Medication administered onsite vancomycin (VANCOCIN) IVPB 1,000 mg [id number] 02/07/2020 06:00:0 0 AM EDT 1000 mg Intravenous aborted Skin and Soft Tissue Infecti on 1,000 mg, Intravenous, Administer over 1 Hours, Every 12 hours (relative), First dose on Wed02/07/20 at 0600 [facility]fection Medication administered onsite piperacillin-tazobactam (ZOSYN) 3.375 g in sodium chloride (NS) 0.9 % 100 mL IV pigtail 02/06/2020 03:00:00 PM EDT 3.375 g Intravenous aborted Skin and Soft Tissue Infection 3.375 g, Intravenous, Admini ster over 30 Minutes, Every 6 hours (relative), First dose on Wed02/06/20 at 1500 [facility] Medication administered onsite valacyclovir 500 MG Oral Tablet valACYclovir (VALTREX) tablet 2,000 mg valACYclovir (VALTREX) tablet 2,000 mg 02/06/2020 03:00:00 PM EDT 2000 mg Oral completed Herpes Labialis 2,000 mg, Oral, 2 times daily, Indications: Herpes Labialis, First dose on Wed02/06/20 at 1500, For 2 doses [facility] Herpes Labialis Medication administered onsite Insulin Glargine 100 UNT/ML Injectable S olution [Lantus] insulin glargine (LANTUS) injection 25 Units insulin glargine (LANTUS) injection 25 Units 02/06/2020 03:00:00 PM EDT 25 U Subcutaneous complete d 25 Units, Subcutaneous, Once, Wed02/06/20 at 1500, For 1 dose
Basal Insulin (Lantus) Adjustments based on AM Blood GlucoseBlood Glucose AdjustmentLess than 70 mg/dl Nursing to initiate hypoglycemia [id number] to 100 mg/dl Pharmacy to decrease total daily dose by 20%101 to 200 mg/dl No Change
[facility] Medication administered onsite vancomycin in 500mL (VANCOCIN) IV 1,500 mg [id number] 02/06/2020 03:00:00 PM EDT 1500 mg Intravenous completed Skin and Soft Tiss ue Infection 1,500 mg, Intravenous, Administer over 120 Minutes, Once, Wed02/06/20 at 1500, For 1 dose [facility]fection Medication administered onsite normal saline flush 0.9 % injection 3 mL [id number] 02/06/2020 06:00:00 AM EDT 3 mL Intravenous aborted 3 mL , Intravenous, PROTOCOL, First dose on Wed02/06/20 at 0600
With good PO intake (600 ml X 1 shift)
[facility] Medication administered onsite Docusate Sodium 100 MG Oral Capsule docusate sodium (C OLACE) capsule 100 mg docusate sodium (COLACE) capsule 100 mg 02/06/2020 06:00:00 AM EDT 100 mg Oral aborted 100 mg, Oral, 2 times daily, First dose on Wed02/06/20 at 0600
hold for loose stools
[facility] Medication administered onsite cefazolin (ANCEF) injection 2 g 02/06/2020 06:00:00 AM EDT 2 g Intravenous completed 2 g, Intravenou s, Administer over 6 Minutes, Every 8 hours (relative), First dose on Wed02/06/20 at 0600, For 2 doses, PACU & Post-op
Start 8 hours after pre-op doseRN may administer IV push or infuse this medication through syringe adapter set ref [id number]. Flush line after use
[facility] Medication administered onsite heparin (porcine) injection 5,000 Units [id number] 02/06/20 06:00:00 AM EDT 5000 U Subcutaneous active 5,000 Units , Subcutaneous, Every 8 hours (scheduled), First dose on Wed02/06/20 at 0600
If platelet count is less than 100,000 or hematocrit is less than 25, or if there is a 5 point decrease in hematocrit, do not give the dose and call physician/designee.
[facility] Medication administered onsite Lisinopril 5 MG Oral Tablet lisinopril (PRINIVIL,ZESTR IL) tablet 5 mg lisinopril (PRINIVIL,ZESTRIL) tablet 5 mg 02/06/2020 05:00:00 AM EDT 5 mg O ral active 5 mg, Oral, Daily, F irst dose on Wed02/06/20 at 0500
Hold for SBP <120
[facility] Medication administered onsite clopidogrel 75 MG Oral Tablet clopidogrel (PLAVIX) tab let 75 mg clopidogrel (PLAVIX) tablet 75 mg 02/06/2020 02:00:00 AM EDT 75 mg Oral active 75 mg, Oral, Daily, First dose on Wed02/06/20 at 0200 [facility] Medication administered onsite Magnesium Chloride 0.64846 MEQ/ML / Pota ssium Chloride 0.0497 MEQ/ML / Sodium Acetate 0.0163 MEQ/ML / Sodium Chloride 0.0899 MEQ/ML / Sodium gluconate 5.02 MG/ML Injectable Solution [Normosol-R] electrolyte-R (NORMOSOL-R/PLASMALYTE-R) solution electrolyte-R (NORMOSOL-R/PLASMALYTE-R) solution 02/05 02:00:00 AM EDT Intravenous aborted at 1 00 mL/hr, Intravenous, Continuous, Starting Wed02/06/20 at 0200 [facility] Medication administered onsite Acetaminophen 325 MG / Oxycodone Hydroch loride 5 MG Oral Tablet oxyCODONE- acetaminophen (PERCOCET) 5-325 MG 2 tablet oxyCODONE-acetaminophen (PERCOCET) 5- 325 MG 2 tablet 02/06/2020 12:54:13 AM EDT 2 {tbl} Oral a borted 2 tablet, Oral, Every 4 hours PRN, severe pain (7-10), Starting Wed02/06/20 at 0054, For 7 days [facility] Medication administered onsite POLYETHYLENE GLYCOL 3350 142 MG/ML Oral Solution polyethylene glycol (GLYCOLAX) packet 17 g polyethylene glycol (GLYCOLAX) packet 17 g 02/06/2020 12:54:13 AM EDT 17 g Oral active 17 g, Or al, Daily PRN, if no result from milk of magnesia (MOM), Starting Wed02/06/20 at 0054
hold for loose stools
[facility] Medication administered onsite Morphine Sulfate (PF) injection 2 mg [id number] 02/06/2020 12:54: 13 AM EDT 2 mg Intravenous aborted 2 mg, In travenous, Every 2 hour PRN, severe pain (7-10), severe pain if oral ineffective after 1 hour, Starting Wed02/06/20 at 0054, For 7 days [facility] Medication administered onsite Acetaminophen 325 MG / Oxycodone Hydroch loride 5 MG Oral Tablet oxyCODONE- acetaminophen (PERCOCET) 5-325 MG 1 tablet oxyCODONE-acetaminophen (PERCOCET) 5- 325 MG 1 tablet 02/06/2020 12:54:13 AM EDT 1 {tbl} Oral a borted 1 tablet, Oral, Every 4 hours PRN, moderate pain (4-6), Starting Wed02/06/20 at 0054, For 7 days [facility] Medication administered onsite Magnesium Hydroxide 80 MG/ML Oral Suspen roxanne magnesium hydroxide (MILK OF MAGNESIA) 400 MG/5ML suspension 30 mL magnesium hydroxide (MILK OF MAGNESIA) 4 00 MG/5ML suspension 30 mL 02/06/2020 12:00:00 AM EDT 30 mL Oral active 30 mL, Oral, Daily PRN, constipation, Starting Wed02/06/20 at 0000
If senna- docusate is not effective
[facility] Medication administered onsite Docusate Sodium 50 MG / sennosides, CARE HOME 8.6 MG Oral Tablet senna-docusate (PERICOLACE) 8.6-50 MG 2 tablet senna-docusate (PERICOLACE) 8.6-50 MG 2 tablet 02/05/2020 09:00:00 PM EDT 2 {tbl} Oral active 2 tablet, Oral, Nightly, First dose on Wed02/05/20 at 2100
hold for loose stools
[facility] Medication administered onsite iopamidol (ISOVUE-370) 76 % 120 mL [id number] 02/05/2020 09:03:59 AM EDT 120 mL Intravenous completed 120 mL, Intra venous, Once in imaging, contrast, Starting Wed02/05/20 at 0903, For 1 dose [facility] Medication administered onsite Aspirin 325 MG Oral Tablet aspirin tablet 325 mg aspirin tab let 325 mg 02/05/2020 09:00:00 AM EDT 325 mg Oral active 325 mg, Oral, Daily, First dose on Wed02/05/20 at 0900 [facility] Medication administered onsite atorvastatin 80 MG Oral Tablet atorvastatin (LIPITOR) tablet 80 mg atorvastatin (LIPITOR) tablet 80 mg 02/05/2020 09:00:00 AM EDT 80 mg Oral active 80 mg, Oral, Daily, First dose on Wed02/05/20 at 0900 [facility] Medication administered onsite Mupirocin 0.02 MG/MG Topical Ointment mupirocin (BACTR OBAN) 2 % ointment mupirocin (BACTROBAN) 2 % ointment 02/05/2020 09:00:00 AM EDT Topical active Topical, Daily, Firs t dose on Wed02/05/20 at 0900, Until Discontinued [facility] Medication administered onsite duloxetine 60 MG Delayed Release Oral Ca psule DULoxetine (CYMBALTA) DR capsule 60 mg DULoxetine (CYMBALTA) DR capsule 60 mg 02/05/2020 09:00:00 AM EDT 60 mg Oral aborted 60 mg, Oral, 2 times daily, First dose on Wed02/05/20 at 0900 [facility] Medication administered onsite clopidogrel 75 MG Oral Tablet clopidogrel (PLAVIX) tab let 75 mg clopidogrel (PLAVIX) tablet 75 mg 02/05/2020 09:00:00 AM EDT 75 mg Oral aborted 75 mg, Oral, Daily, First dose on Wed02/05/20 at 0900 [facility] Medication administered onsite 24 HR Bupropion Hydrochloride 150 MG Ext ended Release Oral Tablet buPROPion (WELLBUTRIN XL) 24 hr tablet 150 mg buPROPion (WELLBUTRIN XL) 24 hr tablet 1 50 mg 02/05/2020 09:00:00 AM EDT 150 mg Oral active 150 mg, Oral, Daily, First dose on Wed02/05/20 at 0900 [facility] Medication administered onsite pregabalin 75 MG Oral Capsule pregabalin (LYRICA) caps ule 150 mg pregabalin (LYRICA) capsule 150 mg 02/05/2020 09:00:00 AM EDT 150 mg Oral active 150 mg, Oral, 2 times daily, First dose on Wed02/05/20 at 0900, For 25 doses [facility] Medication administered onsite pantoprazole 40 MG Delayed Release Oral Tablet pantoprazole (PROTONIX) EC tablet 40 mg pantoprazole (PROTONIX) EC tablet 40 mg 02/05/2020 09:00:00 AM E DT 40 mg Oral active Gastroesophageal Reflux Diseas e 40 mg, Oral, Daily, Indications: Gastroesophageal Reflux Disease, First dose on Wed02/05/20 at 0900 [facility] Gastroesophageal Reflux Disease Medication administered onsite Clotrimazole 10 MG/ML Topical Cream clot rimazole (LOTRIMIN) 1 % cream 1 application clotrimazole (LOTRIMIN) 1 % cream 1 application 2019 09:00:00 AM EDT 1 {application} Topical active 1 application, Topical, 2 times daily, First dose on Wed02/05/20 at 0900, Until Discontinued [facility] Medication administered onsite 60 ACTUAT formoterol fumarate 0.005 MG/A CTUAT / mometasone furoate 0.2 MG/ACTUAT Metered Dose Inhaler mometasone-formoterol (DULERA) 200-5 MCG/ACT inhaler 2 puff mometasone-formoterol (DULERA) 200-5 MCG/ACT inhaler 2 puff 02/05/2020 08:00:00 AM EDT 2 {puff} Inhalation active 2 pu ff, Inhalation, 2 times daily, First dose on Wed02/05/20 at 0800 [facility] Medication administered onsite Insulin Lispro 100 UNT/ML Injectable Kaushal ution insulin lispro (HumaLOG) injection 1-14 Units insulin lispro (HumaLOG) injection 1-14 Units 02/05/20 08:00:00 AM EDT Subcutaneous aborted 1-1 4 Units, Subcutaneous, MEALSS, First dose on Wed02/05/20 at 0800
7 Units Nutritional and Correction Insulin ScaleBlood Glucose (mg/dl) <70 start hypoglycemiaprotocolGlucoseEats >=50% Eats <50%Eats Nothing (mg/dl) of meal of mealor NPO70- 1205 units 2 units 0 [id number] units 4 units 0 ibdhn679- 2208 units 5 units 1 [id number] units 6 units 2 [id number]- 38284 units 7 units 4 [id number] units 8 units 5 [id number] units 9 units 6 units>420 call MD14 units 11 units 7 unitsTest glucose within 30 minutes of insulin administration.Administer insulin within 15 minutes (before or after) of the patient starting to eat.For patients that are NPO, use theNPO (correction) scale to cover POC glucose at 08:00, 12:00, 17:00.
[facility] Medication administered onsite Pentoxifylline 400 MG Extended Release O ral Tablet pentoxifylline (TRENTal) CR tablet 400 mg pentoxifylline (TRENTal) CR tablet 400 mg 02/05/2020 0 8:00:00 AM EDT 400 mg Oral active 400 mg, Oral, 3 times daily with meals, First dose on Wed02/05/20 at 0800 [facility] Medication administered onsite ferrous sulfate 325 MG Oral Tablet ferrous sulfate tab let 325 mg ferrous sulfate tablet 325 mg 02/05/2020 07:00:00 AM EDT 325 mg Oral acti ve 325 mg, Oral, Daily with breakfast, First dose on Wed02/05/20 at 0700 [facility] Medication administered onsite dextrose 5 % and sodium chloride 0.45 % infusion [id number] 02/05/2020 06:00:00 AM EDT Intravenous aborted at 100 mL/hr, Intravenous, Continuous, Starting Wed02/05/20 at 0600
heplock with good PO intake
[facility] Medication administered onsite 500 ML heparin sodium, porcine 50 UNT/ML Injection heparin infusion 25,000 units in 500 mL 0.45% NaCl heparin infusion 25,000 units in 500 mL 0.45% NaCl 02/05/2020 06:00:00 AM EDT 16 U/kg/h Intravenous aborted 16 Units/kg/hr 74.6 kg (23.872 mL/hr, rounded to 23.9 mL/hr), Intravenous, at 23.9 mL/hr, Continuous, Starting Wed02/05/20 at 0600
For DVT/PEaPTT (seconds) Heparin Dose (weight based)< 34 Bolus: 75 units/kg IV (Maximum bolus: 10,000 units) and increase infusion 3 units/kg/hr IV34 - 50 Bolus: 40 units/kg IV (Maximum bolus: 10,000 units) and increase infusion 2 units/kg/hr IV50.1 - 58 No bolus. Increase infusion 1 unit/kg/hr IV58.1 - 87 Therapeutic, No Lazqpw44.1 - 97 Decrease infusion 1 unit/kg/hr IV 97.1 - 110Hold infusion for 30 minutes & decrease infusion 2 units/kg/hr IV> 110 Call MD if patient is bleeding. Hold infusion for 60 minutes & decrease infusion 3 units/kg/hr IVInitial heparin IV infusion rate:Do not exceed 1500 units/hour or 15 units/kg/hr (whichever is less)Infuse this medication only through single port tubing ([employer] Infusion Set ref [id number]). Medication and tubing is to be discarded if infusion off for 4 hours.
[facility] Medication administered onsite normal saline flush 0.9 % injection 3 mL [id number] 02/05/2020 06:00:00 AM EDT 3 mL Intravenous aborted 3 mL , Intravenous, Every 8 hours (scheduled), First dose on Wed02/05/20 at 0600
flush per protocol, D/C Main IV fluid if appropriate
[facility] Medication administered onsite 1 ML heparin sodium, porcine 1000 UNT/ML Injection heparin (porcine) injection 1,000-10,000 Units heparin (porcine) injection 1,000-10,000 Units 020 05:18:27 AM EDT Intravenous aborted 1,000-10,000 Units, Intravenous, As needed, other, Starting Wed02/05/20 at 0518
Round dose to nearest 100 units< 34 Bolus: 75 units/kg IV (Maximum bolus: 10,000 units) 34 - 50 Bolus: 40 units/kg IV (Maximum bolus: 10,000 units)
[facility] Medication administered onsite Acetaminophen 325 MG / Hydrocodone Marline trate 5 MG Oral Tablet HYDROcodone- acetaminophen (NORCO) 5-325 MG per tablet 2 tablet HYDROcodone-acetaminophen (NORCO) 5-325 MG per tablet 2 tablet 02/05/2020 05:13:21 AM EDT 2 { tbl} Oral aborted 2 tablet, Oral, Every 6 hours PRN, severe pain (7-10), Starting 02/05/20 at 0513, For 7 days [facility] Medication administered onsite 2 ML Metoclopramide 5 MG/ML Prefilled Sy ringe metoclopramide (REGLAN) injection 10 mg metoclopramide (REGLAN) injection 10 mg 02/05/2020 05:12:06 AM E DT 10 mg Intravenous active 10 mg, I ntravenous, Every 6 hours PRN, for Nausea/Vomiting not relieved by zofran, Starting Wed02/05/20 at 0512 [facility] Medication administered onsite Mineral Oil 1000 MG/ML Enema mineral oil enema 1 enema mineral oil enema 1 enema 02/05/2020 05:12:02 AM EDT 1 {enema} Rectal active 1 enema, Rectal, Daily PRN, constipation, unrelieved by MOM/bisacodyl/senna-docusate, Starting Wed02/05/20 at 0512
hold for loose stools
[facility] Medication administered onsite Acetaminophen 325 MG Oral Tablet acetaminophen (TYLENO L) 325 MG tablet 650 mg acetaminophen (TYLENOL) 325 MG tablet 650 mg 02/05/2020 05:11:58 AM EDT 650 mg Oral active 650 mg, Or al, Every 4 hours PRN, mild pain (1-3), headaches, Starting Wed02/05/20 at 0511
"Maximum dose of acetaminophen is 4,000 mg from all sources in 24 hours."
[facility] Medication administered onsite Cyclobenzaprine hydrochloride 10 MG Oral Tablet cyclobenzaprine (FLEXERIL) tablet 5 mg cyclobenzaprine (FLEXERIL) tablet 5 mg 02/05/2020 05:02:15 AM ED T 5 mg Oral active 5 mg, Oral , 3 times daily PRN, muscle spasms, Starting Wed02/05/20 at 0502 [facility] Medication administered onsite Albuterol 0.83 MG/ML Inhalant Solution a lbuterol (PROVENTIL) nebulizer solution 2.5 mg albuterol (PROVENTIL) nebulizer solution 2.5 mg 2019 05:01:24 AM EDT 2.5 mg active 2.5 mg, Nebulization, RT every 4 hours as needed, wheezing, shortness of breath, Starting Wed02/05/20 at 0501 [facility] Medication administered onsite 4 mg 02/04/2020 12:00:00 AM EDT tablet 5 TAKE ONE TABLET BY MOUTH EVERY 6 TO 8 HOURS NEEDED FOR NAUSEA / VOMITING TAKE ONE TABLET BY MOUTH EVERY 6 TO 8 HOURS NEEDED FOR NAUSEA / VOMITING SOLD: 02/14/2020 [facility] Escitalopram 10 MG Oral Tablet ESCITALOPRAM OXALATE 02/02/2020 1 2:00:00 AM EDT tablet 90 TAKE ONE TABLET BY MOUTH EVERY D AY TAKE ONE TABLET BY MOUTH EVERY DAY SOLD: 04/30/2020 [facility] 5-325 mg 02/02/2020 12:00:00 AM EDT tablet 21 TAKE ONE TABLET BY MOUTH EVERY 8 HOURS NEEDED FOR PAIN MAXIMUM DAILY DOSE = 3 TABLETS TAKE ONE TABLET BY MOUTH EVERY 8 HOURS NEEDED FOR PAIN MAXIMUM DAILY DOSE = 3 TABLETS SOLD: 02/02/2020 [facility] Escitalopram 10 MG Oral Tablet ESCITALOPRAM OXALATE 02/02/2020 1 2:00:00 AM EDT tablet 90 TAKE ONE TABLET BY MOUTH EVERY D AY TAKE ONE TABLET BY MOUTH EVERY DAY SOLD: 02/02/2020 [facility] 60 mg 01/29/2020 12:00:00 AM EDT capsule,delayed release (DR/EC) 60 TAKE ONE CAPSULE BY MOUTH TWICE A DAY TAKE ONE CAPSULE BY MOUTH TWICE A DAY SOLD: 02/26/2020 [facility] 60 mg 01/29/2020 12:00:00 AM EDT capsule,delayed release (DR/EC) 60 TAKE ONE CAPSULE BY MOUTH TWICE A DAY TAKE ONE CAPSULE BY MOUTH TWICE A DAY SOLD: 01/29/2020 [facility] 5-325 mg 01/26/2020 12:00:00 AM EDT tablet 21 TAKE ONE TABLET BY MOUTH EVERY 8 HOURS NEEDED FOR PAIN MAXIMUM DAILY DOSE = 3 TABLETS TAKE ONE TABLET BY MOUTH EVERY 8 HOURS NEEDED FOR PAIN MAXIMUM DAILY DOSE = 3 TABLETS SOLD: 01/26/2020 [facility] 100 mg 01/19/2020 12:00:00 AM EDT capsule 60 TAKE ONE CAPSULE BY MOUTH TWICE A DAY TAKE ONE CAPSULE BY MOUTH TWICE A DAY SOLD: 03/18/2020 [facility] 100 mg 01/19/2020 12:00:00 AM EDT capsule 60 TAKE ONE CAPSULE BY MOUTH TWICE A DAY TAKE ONE CAPSULE BY MOUTH TWICE A DAY SOLD: 04/21/2020 [facility] 1.5 mg/0.5 mL 01/19/2020 12:00:00 AM EDT pen injector 6 INJECT 1 (1.5MG) SUBCUTANEOUSLY EVERY WEEK INJECT 1 (1.5MG) SUBCUTANEOUSLY EVERY WEEK SOLD: 01/22/2020 [facility] 100 mg 01/19/2020 12:00:00 AM EDT capsule 60 TAKE ONE CAPSULE BY MOUTH TWICE A DAY TAKE ONE CAPSULE BY MOUTH TWICE A DAY SOLD: 01/22/2020 [facility] 100 mg 01/19/2020 12:00:00 AM EDT capsule 60 TAKE ONE CAPSULE BY MOUTH TWICE A DAY TAKE ONE CAPSULE BY MOUTH TWICE A DAY SOLD: 02/19/2020 [facility] 5-325 mg 01/18/2020 12:00:00 AM EDT tablet 21 TAKE ONE TABLET BY MOUTH EVERY 8 HOURS NEEDED FOR PAIN MAXIMUM DAILY DOSE = 3 TAKE ONE TABLET BY MOUTH EVERY 8 HOURS NEEDED FOR PAIN MAXIMUM DAILY DOSE = 3 SOLD: 01/18/2020 [facility] 15 mg 01/17/2020 12:00:00 AM EDT tablet 90 TAKE ONE TABLET BY MOUTH EVERY DAY. BE SURE TO STAY WELL HYDRATED TAKE ONE TABLET BY MOUTH EVERY DAY. BE S URE TO STAY WELL HYDRATED SOLD: 01/17/2020 [facility] 15 mg 01/17/2020 12:00:00 AM EDT tablet 90 TAKE ONE TABLET BY MOUTH EVERY DAY. BE SURE TO STAY WELL HYDRATED TAKE ONE TABLET BY MOUTH EVERY DAY. BE S URE TO STAY WELL HYDRATED SOLD: 04/14/2020 [facility] 5-325 mg 01/12/2020 12:00:00 AM EDT tablet 21 TAKE ONE TABLET BY MOUTH EVERY 8 HOURS NEEDED FOR PAIN MAXIMUM DAILY DOSE = THREE TABLETS TAKE ONE TABLET BY MOUTH EVERY 8 HOURS NEEDED FOR PAIN MAXIMUM DAILY DOSE = THREE TABLETS SOLD: 01/12/2020 [facility] 150 mg 01/05/2020 12:00:00 AM EDT capsule 60 TAKE ONE CAPSULE BY MOUTH TWICE A DAY MAXIMUM DAILY DOSE = 2 TABLETS TAKE ONE CAPSULE BY MOUTH TWICE A DAY MAXIMUM DAILY DOSE = 2 TABLETS SOLD: 01/05/2020 [facility] Wheelchair 01/05/2020 12:00:00 AM EDT active MED[facility] ([facility]) empagliflozin 25 MG Oral Tablet [Jardiance] Jardiance 01/05/2020 12:00:00 AM EDT ORAL active [facility] ([facility]) 5-325 mg 01/05/2020 12:00:00 AM EDT tablet 21 TAKE ONE TABLET BY MOUTH EVERY 8 HOURS NEEDED FOR PAIN MAXIMUM DAILY DOSE = THREE TABLETS TAKE ONE TABLET BY MOUTH EVERY 8 HOURS NEEDED FOR PAIN MAXIMUM DAILY DOSE = THREE TABLETS SOLD: 01/05/2020 [facility] 4 mg 01/04/2020 12:00:00 AM EDT tablet 30 TAKE ONE TO TWO TABLETS BY MOUTH EVERY 6 HOURS NEEDED FOR NAUSEA TAKE ONE TO TWO TABLETS BY MOUTH EVERY 6 HOURS NEEDED FOR NAUSEA SOLD: 01/05/2020 [facility] 750 mg 12/31/2019 12:00:00 AM EDT tablet 10 TAKE ONE TABLET BY MOUTH EVERY DAY TAKE ONE TABLET BY MOUTH EVERY DAY SOLD: 01/02/2020 [facility] 1 billion cell- 250 mg 12/31/2019 12:00:00 AM EDT tablet 20 TAKE ONE TABLET BY MOUTH TWICE A DAY WITH MEALS TAKE ONE TABLET BY MOUTH TWICE A DAY WITH MEALS SOLD: 01/02/2020 [facility] Clindamycin 150 MG Oral Capsule CLINDAMYCIN HCL 12/31/2019 12:00 :00 AM EDT capsule 30 TAKE ONE CAPSULE BY MOUTH THREE TIMES A DAY TAKE ONE CAPSULE BY MOUTH THREE TIMES A DAY SOLD: 01/02/2020 [facility] 5-325 mg 12/29/2019 12:00:00 AM EDT tablet 21 TAKE ONE TABLET BY MOUTH EVERY 8 HOURS NEEDED FOR PAIN MAXIMUM DAILY DOSE = THREE TABLETS TAKE ONE TABLET BY MOUTH EVERY 8 HOURS NEEDED FOR PAIN MAXIMUM DAILY DOSE = THREE TABLETS SOLD: 12/29/2019 [facility] 100 mg 12/22/2019 12:00:00 AM EDT capsule 20 TAKE ONE CAPSULE BY MOUTH TWICE A DAY FOR 10 DAYS TAKE ONE CAPSULE BY MOUTH TWICE A DAY FOR 10 DAYS SOLD : 12/22/2019 [facility] 5-325 mg 12/21/2019 12:00:00 AM EDT tablet 21 TAKE ONE TABLET BY MOUTH EVERY 8 HOURS NEEDED FOR PAIN MAXIMUM DAILY DOSE = 3 TABLETS TAKE ONE TABLET BY MOUTH EVERY 8 HOURS NEEDED FOR PAIN MAXIMUM DAILY DOSE = 3 TABLETS SOLD: 12/22/2019 [facility] Acetaminophen 325 MG / Hydrocodone Bitartrate 5 MG Ora l Tablet Hydrocodone-Acetaminophen 12/18/2019 12:00:00 AM EDT ORAL active [facility] ([facility] 5-325 mg 12/18/2019 12:00:00 AM EDT tablet 20 TAKE ONE TO TWO TABLETS BY MOUTH EVERY 4 HOURS NEEDED FOR PAIN MAXIMUM DAILY DOSE = 8 TAKE ONE TO TWO TABLETS BY MOUTH EVERY 4 HOURS NEEDED FOR PAIN MAXIMUM DAILY DOSE = 8 SOLD: 12/18/2019 [facility] 10 mg 12/07/2019 12:00:00 AM EDT tablet 60 TAKE ONE TABLET BY MOUTH TWICE A DAY TAKE ONE TABLET BY MOUTH TWICE A DAY SOLD: 01/05/2020 [facility] 10 mg 12/07/2019 12:00:00 AM EDT tablet 60 TAKE ONE TABLET BY MOUTH TWICE A DAY TAKE ONE TABLET BY MOUTH TWICE A DAY SOLD: 12/07/2019 [facility] 5-325 mg 12/07/2019 12:00:00 AM EDT tablet 20 TAKE ONE TABLET BY MOUTH EVERY 6 HOURS NEEDED FOR PAIN MAXIMUM DAILY DOSE = FOUR TABLETS TAKE ONE TABLET BY MOUTH EVERY 6 HOURS NEEDED FOR PAIN MAXIMUM DAILY DOSE = FOUR TABLETS SOLD: 12/07/2019 [facility] 10 mg 12/07/2019 12:00:00 AM EDT tablet 60 TAKE ONE TABLET BY MOUTH TWICE A DAY TAKE ONE TABLET BY MOUTH TWICE A DAY SOLD: 03/27/2020 [facility] 10 mg 12/07/2019 12:00:00 AM EDT tablet 60 TAKE ONE TABLET BY MOUTH TWICE A DAY TAKE ONE TABLET BY MOUTH TWICE A DAY SOLD: 02/28/2020 [facility] 10 mg 12/07/2019 12:00:00 AM EDT tablet 60 TAKE ONE TABLET BY MOUTH TWICE A DAY TAKE ONE TABLET BY MOUTH TWICE A DAY SOLD: 02/01/2020 [facility] Acetaminophen 325 MG / Hydrocodone Bitartrate 5 MG Ora l Tablet Hydrocodone Bitartrate/Acetaminophen 12/07/2019 12:00:00 AM EDT ORAL active [facility] ([facility]) 10 mg 12/07/2019 12:00:00 AM EDT tablet 60 TAKE ONE TABLET BY MOUTH TWICE A DAY TAKE ONE TABLET BY MOUTH TWICE A DAY SOLD: 04/21/2020 [facility] 60 mg 12/06/2019 12:00:00 AM EDT capsule,delayed release (DR/EC) 60 TAKE ONE CAPSULE BY MOUTH TWICE A DAY TAKE ONE CAPSULE BY MOUTH TWICE A DAY SOLD: 01/02/2020 [facility] 60 mg 12/06/2019 12:00:00 AM EDT capsule,delayed release (DR/EC) 60 TAKE ONE CAPSULE BY MOUTH TWICE A DAY TAKE ONE CAPSULE BY MOUTH TWICE A DAY SOLD: 12/07/2019 [facility] 150 mg 12/06/2019 12:00:00 AM EDT capsule 60 TAKE ONE CAPSULE BY MOUTH TWICE A DAY MAXIMUM DAILY DOSE = 2 CAPSULES TAKE ONE CAPSULE BY MOUTH TWICE A DAY MAXIMUM DAILY DOSE = 2 CAPSULES SOLD: 12/07/2019 [facility] Acetaminophen 325 MG / Oxycodone Hydrochloride 5 MG Or al Tablet Oxycodone-Acetaminophen 12/04/2019 12:00:00 AM EDT active [facility] ([facility] 5-325 mg 12/04/2019 12:00:00 AM EDT tablet 20 TAKE ONE TO TWO TABLETS BY MOUTH EVERY 6 HOURS NEEDED FOR PAIN MAXIMUM DAILY DOSE = 8 TABLETS TAKE ONE TO TWO TABLETS BY MOUTH EVERY 6 HOURS NEEDED FOR PAIN MAXIMUM DAILY DOSE = 8 TABLETS SOLD: 12/04/2019 [facility] 5-325 mg 11/23/2019 12:00:00 AM EDT tablet 28 TAKE ONE TABLET BY MOUTH EVERY 12 HOURS NEEDED FOR PAIN MAXIMUM DAILY DOSE = 2 TAKE ONE TABLET BY MOUTH EVERY 12 HOURS NEEDED FOR PAIN MAXIMUM DAILY DOSE = 2 SOLD: 11/23/2019 [facility] 40 mg 11/17/2019 12:00:00 AM EDT capsule,delayed release (DR/EC) 180 TAKE ONE CAPSULE BY MOUTH TWICE A DAY TAKE ONE CAPSULE BY MOUTH TWICE A DAY SOLD: 02/14/2020 [facility] 21 mg/24 hr 11/17/2019 12:00:00 AM EDT patch 24 hour 28 APPLY 1 PATCH DAILY TO YOUR BODY ALTERNATE SITES APPLY 1 PATCH DAILY TO YOUR BODY ALTERNATE SITES SOLD: 11/18/2019 [facility] 24 HR Bupropion Hydrochloride 150 MG Extended Release Oral T ablet BUPROPION HCL 11/17/2019 12:00:00 AM EDT tablet extended release 24 hr 90 TAKE ONE TABLET BY MOUTH EVERY DAY TAKE ONE TABLET BY MOUTH EVERY DAY SOLD: 02/14/2020 [facility] 21 mg/24 hr 11/17/2019 12:00:00 AM EDT patch 24 hour 28 APPLY 1 PATCH DAILY TO YOUR BODY ALTERNATE SITES APPLY 1 PATCH DAILY TO YOUR BODY ALTERNATE SITES SOLD: 12/18/2019 [facility] 40 mg 11/17/2019 12:00:00 AM EDT capsule,delayed release (DR/EC) 180 TAKE ONE CAPSULE BY MOUTH TWICE A DAY TAKE ONE CAPSULE BY MOUTH TWICE A DAY SOLD: 11/18/2019 [facility] 24 HR Bupropion Hydrochloride 150 MG Extended Release Oral T ablet BUPROPION HCL 11/17/2019 12:00:00 AM EDT tablet extended release 24 hr 90 TAKE ONE TABLET BY MOUTH EVERY DAY TAKE ONE TABLET BY MOUTH EVERY DAY SOLD: 11/18/2019 [facility] 24 HR Bupropion Hydrochloride 150 MG Extended Release Oral Tablet Bupropion Hydrochloride ER (XL) 11/16/2019 12:00:00 AM EDT ORAL a ctive MED[facility] ([facility]) 24 HR Nicotine 0.875 MG/HR Transdermal Patch Eq Nicotine 11/16/2019 12:00:00 AM EDT active [facility] ([facility]) 2 % 11/13/2019 12:00:00 AM EDT ointment 22 APPLY TO AFFECTED AREA(S) TOPICALLY ON THE FOOT WOUND ONCE DAILY APPLY TO AFFECTED AREA(S) TOPICALLY ON THE FOOT WOUND ONCE DAILY SOLD: 11/13/2019 [facility] Cyclobenzaprine hydrochloride 5 MG Oral Tablet CYCLOBENZAPRI NE HCL 11/13/2019 12:00:00 AM EDT tablet 14 TAKE 1 TABLET BY MOUTH EVERY 12 HOURS NEEDED FOR SPASMS TAKE 1 TABLET BY MOUTH EVERY 12 HOURS NEEDED FOR SP ASMS SOLD: 11/13/2019 [facility] 2 % 11/13/2019 12:00:00 AM EDT ointment 22 APPLY TO AFFECTED AREA(S) TOPICALLY ON THE FOOT WOUND ONCE DAILY APPLY TO AFFECTED AREA(S) TOPICALLY ON THE FOOT WOUND ONCE DAILY SOLD: 12/04/2019 [facility] Cyclobenzaprine hydrochloride 5 MG Oral Tablet CYCLOBENZAPRI NE HCL 11/13/2019 12:00:00 AM EDT tablet 14 TAKE 1 TABLET BY MOUTH EVERY 12 HOURS NEEDED FOR SPASMS TAKE 1 TABLET BY MOUTH EVERY 12 HOURS NEEDED FOR SP ASMS SOLD: 12/04/2019 [facility] 5-325 mg 11/03/2019 12:00:00 AM EDT tablet 28 TAKE ONE TABLET BY MOUTH EVERY 12 HOURS NEEDED FOR PAIN MAXIMUM DAILY DOSE = 2 TABLETS TAKE ONE TABLET BY MOUTH EVERY 12 HOURS NEEDED FOR PAIN MAXIMUM DAILY DOSE = 2 TABLETS SOLD: 11/03/2019 [facility] 400 mg 11/01/2019 12:00:00 AM EDT tablet extended release 90 TAKE ONE TABLET BY MOUTH THREE TIMES A DAY TAKE ONE TABLET BY MOUTH THREE TIMES A DAY SOLD: 11/03/2019 [facility] atorvastatin 80 MG Oral Tablet ATORVASTATIN CALCIUM 11/01/2019 1 2:00:00 AM EDT tablet 90 TAKE ONE TABLET BY MOUTH EVERY E VENING TAKE ONE TABLET BY MOUTH EVERY EVENING SOLD: 11/03/2019 [facility] 400 mg 11/01/2019 12:00:00 AM EDT tablet extended release 90 TAKE ONE TABLET BY MOUTH THREE TIMES A DAY TAKE ONE TABLET BY MOUTH THREE TIMES A DAY SOLD: 12/04/2019 [facility] atorvastatin 80 MG Oral Tablet ATORVASTATIN CALCIUM 11/01/2019 1 2:00:00 AM EDT tablet 90 TAKE ONE TABLET BY MOUTH EVERY E VENING TAKE ONE TABLET BY MOUTH EVERY EVENING SOLD: 01/29/2020 [facility] 150 mg 11/01/2019 12:00:00 AM EDT capsule 60 TAKE ONE CAPSULE BY MOUTH TWICE A DAY MAXIMUM DAILY DOSE = 2 CAPSULES TAKE ONE CAPSULE BY MOUTH TWICE A DAY MAXIMUM DAILY DOSE = 2 CAPSULES SOLD: 11/03/2019 [facility] 1 mg 10/31/2019 12:00:00 AM EDT tablet 56 TAKE ONE TABLET BY MOUTH TWICE DAILY TAKE ONE TABLET BY MOUTH TWICE DAILY SOLD: 12/04/2019 [facility] 1 mg 10/31/2019 12:00:00 AM EDT tablet 56 TAKE ONE TABLET BY MOUTH TWICE DAILY TAKE ONE TABLET BY MOUTH TWICE DAILY SOLD: 11/03/2019 [facility] 75 mg 10/25/2019 12:00:00 AM EDT tablet 90 TAKE ONE TABLET BY MOUTH EVERY DAY TAKE ONE TABLET BY MOUTH EVERY DAY SOLD: 10/26/2019 [facility] clopidogrel 75 MG Oral Tablet [Plavix] Plavix 10/24/2019 12:00:00 AM EDT ORAL active [facility] ([facility]) 5-325 mg 10/19/2019 12:00:00 AM EDT tablet 28 TAKE ONE TABLET BY MOUTH EVERY 12 HOURS NEEDED FOR PAIN MAXIMUM DAILY DOSE = TWO TABLETS TAKE ONE TABLET BY MOUTH EVERY 12 HOURS NEEDED FOR PAIN MAXIMUM DAILY DOSE = TWO TABLETS SOLD: 10/19/2019 [facility] Acetaminophen 325 MG / Hydrocodone Bitartrate 5 MG Ora l Tablet Hydrocodone-Acetaminophen 10/19/2019 12:00:00 AM EDT ORAL completed [facility] ([facility] 5-325 mg 10/11/2019 12:00:00 AM EDT tablet 20 TAKE ONE TABLET BY MOUTH EVERY 4 HOURS NEEDED FOR PAIN MAXIMUM DAILY DOSE = 6 TABLETS TAKE ONE TABLET BY MOUTH EVERY 4 HOURS NEEDED FOR PAIN MAXIMUM DAILY DOSE = 6 TABLETS SOLD: 10/11/2019 [facility] 5 mg 10/04/2019 12:00:00 AM EDT tablet 90 TAKE ONE TABLET BY MOUTH EVERY DAY TAKE ONE TABLET BY MOUTH EVERY DAY SOLD: 10/05/2019 [facility] 150 mg 10/04/2019 12:00:00 AM EDT capsule 60 TAKE ONE CAPSULE BY MOUTH TWICE A DAY MAXIMUM DAILY DOSE = 2 CAPSULES TAKE ONE CAPSULE BY MOUTH TWICE A DAY MAXIMUM DAILY DOSE = 2 CAPSULES SOLD: 10/05/2019 [facility] 4 mg 10/04/2019 12:00:00 AM EDT tablet 30 TAKE ONE TO TWO TABLETS BY MOUTH EVERY 6 HOURS NEEDED FOR NAUSEA TAKE ONE TO TWO TABLETS BY MOUTH EVERY 6 HOURS NEEDED FOR NAUSEA SOLD: 10/05/2019 [facility] 4 mg 10/04/2019 12:00:00 AM EDT tablet 30 TAKE ONE TO TWO TABLETS BY MOUTH EVERY 6 HOURS NEEDED FOR NAUSEA TAKE ONE TO TWO TABLETS BY MOUTH EVERY 6 HOURS NEEDED FOR NAUSEA SOLD: 12/04/2019 [facility] 4 mg 10/04/2019 12:00:00 AM EDT tablet 30 TAKE ONE TO TWO TABLETS BY MOUTH EVERY 6 HOURS NEEDED FOR NAUSEA TAKE ONE TO TWO TABLETS BY MOUTH EVERY 6 HOURS NEEDED FOR NAUSEA SOLD: 10/19/2019 [facility] 5 mg 10/04/2019 12:00:00 AM EDT tablet 90 TAKE ONE TABLET BY MOUTH EVERY DAY TAKE ONE TABLET BY MOUTH EVERY DAY SOLD: 01/02/2020 [facility] 150 mg 09/28/2019 12:00:00 AM EDT capsule 60 TAKE ONE CAPSULE BY MOUTH TWICE A DAY MAXIMUM DAILY DOSE = 2 TAKE ONE CAPSULE BY MOUTH TWICE A DAY MA XIMUM DAILY DOSE = 2 SOLD: 10/03/2019 [facility]/Aluminum/Adjustable/Ladies Handle 09/27/2019 12:00:00 AM ED T active MEDENT ([facility]) Chantix Starting Chantix Starting Month Shahriar 2019 12:00:00 AM EDT completed [facility] ([facility]) 0.5 mg (11)- 1 mg (42) 09/22/2019 12:00:00 AM EDT tablets,do se pack 53 TAKE BY MOUTH DIRECTED TAKE BY MOUTH DIRECTED SOLD: 09/24/2019 [facility] 5 mg 09/20/2019 12:00:00 AM EDT tablet 14 TAKE ONE TABLET BY MOUTH EVERY 12 HOURS NEEDED FOR SPASMS TAKE ONE TABLET BY MOUTH EVERY 12 HOURS NEEDED FOR SPASMS SOLD: 10/19/2019 [facility] 5 mg 09/20/2019 12:00:00 AM EDT tablet 14 TAKE ONE TABLET BY MOUTH EVERY 12 HOURS NEEDED FOR SPASMS TAKE ONE TABLET BY MOUTH EVERY 12 HOURS NEEDED FOR SPASMS SOLD: 09/22/2019 [facility] 200 mg 08/31/2019 12:00:00 AM EDT tablet 2 TAKE 1 TABLET BY MOUTH AND 1 TABLET 2 DAYS LATER IF SYMPTOMS PERSIST TAKE 1 TABLET BY MOUTH AND 1 TABLET 2 DAYS LATER IF SYMPTOMS PERSIST SOLD: 08/31/2019 [facility] Fluconazole 200 MG Oral Tablet [Diflucan] Diflucan 08/31/2019 1 2:00:00 AM EDT ORAL active MED[facility] ([facility]) 5 mg 08/29/2019 12:00:00 AM EDT tablet 14 TAKE ONE TABLET BY MOUTH EVERY 12 HOURS NEEDED FOR SPASMS TAKE ONE TABLET BY MOUTH EVERY 12 HOURS NEEDED FOR SPASMS SOLD: 09/17/2019 [facility] 5 mg 08/29/2019 12:00:00 AM EDT tablet 14 TAKE ONE TABLET BY MOUTH EVERY 12 HOURS NEEDED FOR SPASMS TAKE ONE TABLET BY MOUTH EVERY 12 HOURS NEEDED FOR SPASMS SOLD: 08/31/2019 [facility] Onetouch Ultra 2 08/24/2019 12:00:00 AM EDT [facility] 200 unit/mL (3 mL) 08/24/2019 12:00:00 AM EDT insulin pen 27 INJECT 50 UNITS UNDER THE SKIN TWO TIMES A DAY INJECT 50 UNITS UNDER THE SKIN TWO TIMES A DAY SOLD: 10/19/2019 [facility] 200 unit/mL (3 mL) 08/24/2019 12:00:00 AM EDT insulin pen 27 INJECT 50 UNITS UNDER THE SKIN TWO TIMES A DAY INJECT 50 UNITS UNDER THE SKIN TWO TIMES A DAY SOLD: 08/24/2019 [facility] BLOOD SUGAR DIAGNOSTIC 08/21/2019 12:00:00 AM EDT strip 150 TEST THREE TIMES A DAY WITH INSULIN USE TEST THREE TIMES A DAY WITH INSULIN USE SOLD: 01/05/20 [facility] 150 mg 08/21/2019 12:00:00 AM EDT capsule 60 TAKE ONE CAPSULE BY MOUTH TWICE A DAY MAXIMUM DAILY DOSE = 2 TABLETS TAKE ONE CAPSULE BY MOUTH TWICE A DAY MAXIMUM DAILY DOSE = 2 TABLETS SOLD: 08/22/2019 [facility] BLOOD SUGAR DIAGNOSTIC 08/21/2019 12:00:00 AM EDT strip 150 TEST THREE TIMES A DAY WITH INSULIN USE TEST THREE TIMES A DAY WITH INSULIN USE SOLD: 08/22/19 [facility] BLOOD SUGAR DIAGNOSTIC 08/21/2019 12:00:00 AM EDT strip 150 TEST THREE TIMES A DAY WITH INSULIN USE TEST THREE TIMES A DAY WITH INSULIN USE SOLD: 04/10/20 [facility] BLOOD SUGAR DIAGNOSTIC 08/17/2019 12:00:00 AM EDT strip 150 TEST THREE TIMES A DAY WITH INSULIN USE TEST THREE TIMES A DAY WITH INSULIN USE SOLD: 08/17/19 [facility] BLOOD SUGAR DIAGNOSTIC 08/17/2019 12:00:00 AM EDT strip 150 TEST THREE TIMES A DAY WITH INSULIN USE TEST THREE TIMES A DAY WITH INSULIN USE SOLD: 10/05/19 [facility] 2 % 08/15/2019 12:00:00 AM EDT ointment 22 APPL Y TO FOOT WOUND DAILY APPLY TO FOOT WOUND DAILY SOLD: 08/17/2019 [facility] 5 mg 08/08/2019 12:00:00 AM EDT tablet 14 TAKE ONE TABLET BY MOUTH EVERY 12 HOURS NEEDED FOR MUSCLE SPASMS TAKE ONE TABLET BY MOUTH EVERY 12 HOURS NEEDED FOR MUSCLE SPASMS SOLD: 08/15/2019 [facility] 100 mg 07/28/2019 12:00:00 AM EDT capsule 120 TAKE TWO CAPSULES BY MOUTH TWICE A DAY NEEDED TAKE TWO CAPSULES BY MOUTH TWICE A DAY NEEDED SOLD: 07/29/2019 [facility] 100 mg 07/28/2019 12:00:00 AM EDT capsule 120 TAKE TWO CAPSULES BY MOUTH TWICE A DAY NEEDED TAKE TWO CAPSULES BY MOUTH TWICE A DAY NEEDED SOLD: 10/19/2019 [facility] clopidogrel 75 MG Oral Tablet clopidogrel (PLAVIX) 75 MG tablet clopidogrel (PLAVIX) 75 MG tablet 07/26/2019 12:00:00 AM EDT 75 mg Oral active Take 75 mg by mouth daily [facility] 75 mg 07/26/2019 12:00:00 AM EDT tablet 30 TAKE ONE TABLET BY MOUTH EVERY DAY TAKE ONE TABLET BY MOUTH EVERY DAY SOLD: 09/17/2019 [facility] 75 mg 07/26/2019 12:00:00 AM EDT tablet 30 TAKE ONE TABLET BY MOUTH EVERY DAY TAKE ONE TABLET BY MOUTH EVERY DAY SOLD: 07/29/2019 [facility] clopidogrel 75 MG Oral Tablet Clopidogrel Bisulfate 07/26/2019 1 2:00:00 AM EDT active [facility] ( [facility]) 10 mg 07/22/2019 12:00:00 AM EDT tablet 30 TAKE ONE TABLET BY MOUTH EVERY DAY TAKE ONE TABLET BY MOUTH EVERY DAY SOLD: 07/22/2019 [facility] 4 mg 07/22/2019 12:00:00 AM EDT tablet 30 TAKE ONE TO TWO TABLETS BY MOUTH EVERY 6 HOURS NEEDED FOR NAUSEA TAKE ONE TO TWO TABLETS BY MOUTH EVERY 6 HOURS NEEDED FOR NAUSEA SOLD: 08/24/2019 [facility] 10 mg 07/22/2019 12:00:00 AM EDT tablet 30 TAKE ONE TABLET BY MOUTH EVERY DAY TAKE ONE TABLET BY MOUTH EVERY DAY SOLD: 08/22/2019 [facility] Nystatin 100 UNT/MG Topical Powder 100,000 unit/gram NYSTATI N 07/22/2019 12:00:00 AM EDT powder 15 APPLY TO LOWER A BDOMINAL AREA TWO TIMES A DAY NEEDED FOR RASH APPLY TO LOWER ABDOMINAL AREA TWO TIMES A DAY NEEDED FOR RASH SOLD: 12/07/2019 [facility] Ondansetron 4 MG Oral Tablet ondansetron (ZOFRAN) 4 MG tablet ondansetron (ZOFRAN) 4 MG tablet 07/22/2019 12:00:00 AM EDT ab orted as needed [facility] 10 mg 07/22/2019 12:00:00 AM EDT tablet 30 TAKE ONE TABLET BY MOUTH EVERY DAY TAKE ONE TABLET BY MOUTH EVERY DAY SOLD: 11/18/2019 [facility] Nystatin 100 UNT/MG Topical Powder 100,000 unit/gram NYSTATI N 07/22/2019 12:00:00 AM EDT powder 15 APPLY TO LOWER A BDOMINAL AREA TWO TIMES A DAY NEEDED FOR RASH APPLY TO LOWER ABDOMINAL AREA TWO TIMES A DAY NEEDED FOR RASH SOLD: 07/22/2019 [facility] 4 mg 07/22/2019 12:00:00 AM EDT tablet 30 TAKE ONE TO TWO TABLETS BY MOUTH EVERY 6 HOURS NEEDED FOR NAUSEA TAKE ONE TO TWO TABLETS BY MOUTH EVERY 6 HOURS NEEDED FOR NAUSEA SOLD: 07/22/2019 [facility] 10 mg 07/22/2019 12:00:00 AM EDT tablet 30 TAKE ONE TABLET BY MOUTH EVERY DAY TAKE ONE TABLET BY MOUTH EVERY DAY SOLD: 09/22/2019 [facility] 325 mg (65 mg iron) 07/22/2019 12:00:00 AM EDT tablet 30 TAKE ONE TABLET BY MOUTH EVERY DAY ON AN EMPTY STOMACH WITH VITAMIN CAPSULE TAKE ONE TABLET BY MOUTH EVERY DAY ON AN EMPTY STOMACH WITH VITAMIN CAPSULE SOLD: 11/18/2019 [facility] 10 mg 07/22/2019 12:00:00 AM EDT tablet 30 TAKE ONE TABLET BY MOUTH EVERY DAY TAKE ONE TABLET BY MOUTH EVERY DAY SOLD: 10/19/2019 [facility] 325 mg (65 mg iron) 07/22/2019 12:00:00 AM EDT tablet 30 TAKE ONE TABLET BY MOUTH EVERY DAY ON AN EMPTY STOMACH WITH VITAMIN CAPSULE TAKE ONE TABLET BY MOUTH EVERY DAY ON AN EMPTY STOMACH WITH VITAMIN CAPSULE SOLD: 12/18/2019 [facility] 10 mg 07/22/2019 12:00:00 AM EDT tablet 30 TAKE ONE TABLET BY MOUTH EVERY DAY TAKE ONE TABLET BY MOUTH EVERY DAY SOLD: 08/24/2019 [facility] 325 mg (65 mg iron) 07/22/2019 12:00:00 AM EDT tablet 30 TAKE ONE TABLET BY MOUTH EVERY DAY ON AN EMPTY STOMACH WITH VITAMIN CAPSULE TAKE ONE TABLET BY MOUTH EVERY DAY ON AN EMPTY STOMACH WITH VITAMIN CAPSULE SOLD: 07/22/2019 [facility] 325 mg (65 mg iron) 07/22/2019 12:00:00 AM EDT tablet 30 TAKE ONE TABLET BY MOUTH EVERY DAY ON AN EMPTY STOMACH WITH VITAMIN CAPSULE TAKE ONE TABLET BY MOUTH EVERY DAY ON AN EMPTY STOMACH WITH VITAMIN CAPSULE SOLD: 10/19/2019 [facility] 325 mg (65 mg iron) 07/22/2019 12:00:00 AM EDT tablet 30 TAKE ONE TABLET BY MOUTH EVERY DAY ON AN EMPTY STOMACH WITH VITAMIN CAPSULE TAKE ONE TABLET BY MOUTH EVERY DAY ON AN EMPTY STOMACH WITH VITAMIN CAPSULE SOLD: 08/24/2019 [facility] 4 mg 07/22/2019 12:00:00 AM EDT tablet 30 TAKE ONE TO TWO TABLETS BY MOUTH EVERY 6 HOURS NEEDED FOR NAUSEA TAKE ONE TO TWO TABLETS BY MOUTH EVERY 6 HOURS NEEDED FOR NAUSEA SOLD: 09/17/2019 [facility] 325 mg (65 mg iron) 07/22/2019 12:00:00 AM EDT tablet 30 TAKE ONE TABLET BY MOUTH EVERY DAY ON AN EMPTY STOMACH WITH VITAMIN CAPSULE TAKE ONE TABLET BY MOUTH EVERY DAY ON AN EMPTY STOMACH WITH VITAMIN CAPSULE SOLD: 09/22/2019 [facility] 150 mg 07/21/2019 12:00:00 AM EDT capsule 60 TAKE ONE CAPSULE BY MOUTH TWICE A DAY MAXIMUM DAILY DOSE = 2 TAKE ONE CAPSULE BY MOUTH TWICE A DAY MA XIMUM DAILY DOSE = 2 SOLD: 07/22/2019 [facility] Ondansetron 4 MG Oral Tablet [Zofran] Zofran 07/21/2019 12:00:00 AM EDT ORAL active [facility] ([facility]) Metoclopramide 10 MG Oral Tablet Metoclopramide HCL 07/21/2019 1 2:00:00 AM EDT ORAL active MED[facility] ( [facility]) Nystatin 07/21/2019 12:00:00 AM EDT active [facility] ([facility]) Metoclopramide 10 MG Oral Tablet metoclopramide (MELVA N) 10 MG tablet metoclopramide (REGLAN) 10 MG tablet 10 mg Oral a ctive Take 10 mg by mouth 2 (two) times a day [facility] 10 mg 06/17/2019 12:00:00 AM EST tablet 20 TAKE ONE TABLET BY MOUTH EVERY 6 HOURS NEEDED FOR NAUSEA TAKE ONE TABLET BY MOUTH EVERY 6 HOURS A S NEEDED FOR NAUSEA SOLD: 06/18/2019 [facility] atorvastatin 80 MG Oral Tablet atorvastatin (LIPITOR) 80 MG tablet atorvastatin (LIPITOR) 80 MG tablet 80 mg Oral active Ta ke 80 mg by mouth daily [facility] 80 mg 06/15/2019 12:00:00 AM EST tablet 90 TAKE ONE TABLET BY MOUTH IN THE EVENING TAKE ONE TABLET BY MOUTH IN THE EVENING SOLD: 06/18/2019 [facility] atorvastatin 80 MG Oral Tablet Atorvastatin Calcium 06/14/2019 1 2:00:00 AM EST ORAL active [facility] ( [facility]) 0.5 ML dulaglutide 3 MG/ML Auto-Injector [Trulicity] TRULICITY 1.5 MG/0.5ML SOPN TRULICITY 1.5 MG/0.5ML SOPN 4.5 mg Subcutaneous ab orted Inject 4.5 mg under the skin once a week on Wednesday [facility] 200 unit/mL (3 mL) 06/13/2019 12:00:00 AM EST insulin pen 15 INJECT 50 UNITS SUBCUTANEOUSLY TWO TIMES A DAY INJECT 50 UNITS SUBCUTANEOUSLY TWO TIMES A DAY SOLD: 06/18/2019 [facility] 1.5 mg/0.5 mL 06/13/2019 12:00:00 AM EST pen injector 6 INJECT 1 SUBCUTANEOUSLY ONCE WEEKLY INJECT 1 SUBCUTANEOUSLY ONCE WEEKLY SOLD: 06/18/2019 [facility] 0.5 ML dulaglutide 3 MG/ML Auto-Injector [Trulicity] Trulici ty 06/12/2019 12:00:00 AM EST SUBCUTANEOUS active [facility] ([facility]) 800-160 mg 06/08/2019 12:00:00 AM EST tablet 20 TAKE ONE TABLET BY MOUTH TWICE A DAY TAKE ONE TABLET BY MOUTH TWICE A DAY SOLD: 06/10/2019 [facility] 875 mg 05/29/2019 12:00:00 AM EST tablet 20 TAKE ONE TABLET BY MOUTH EVERY 12 HOURS FOR 10 DAYS TAKE ONE TABLET BY MOUTH EVERY 12 HOURS FOR 10 DAYS SO LD: 05/30/2019 [facility] Lisinopril 5 MG Oral Tablet lisinopril (PRINIVIL,ZESTR IL) 5 MG tablet lisinopril (PRINIVIL,ZESTRIL) 5 MG tablet 05/26/2019 12:00:00 AM EST 5 mg O ral active Take 5 mg by mouth daily [facility] Mupirocin 0.02 MG/MG Topical Ointment mupirocin (BACTR OBAN) 2 % ointment mupirocin (BACTROBAN) 2 % ointment 05/26/2019 12:00:00 AM EST aborted APPLY TO AFFECTED AREA S ON FOOT WOUND ONCE DAILY [facility] 2 % 05/26/2019 12:00:00 AM EST ointment 22 APPLY TO AFFECTED AREA(S) ON FOOT WOUND ONCE DAILY APPLY TO AFFECTED AREA(S) ON FOOT WOUND ONCE DAILY [facility] Lisinopril 5 MG Oral Tablet Lisinopril 05/26/2019 12:00:00 AM EST ORAL active [facility] ([facility]) 2 % 05/26/2019 12:00:00 AM EST ointment 22 APPLY TO AFFECTED AREA(S) ON FOOT WOUND ONCE DAILY APPLY TO AFFECTED AREA(S) ON FOOT WOUND ONCE DAILY [facility] 1 mL 31 gauge x 516 05/26/2019 12:00:00 AM EST syringe 10 0 INJECT ADMELOG PER SLIDING SCALE INJECT ADMELOG PER SLIDING SCALE SOLD: 05/28/2019 [facility] 5 mg 05/26/2019 12:00:00 AM EST tablet 90 TAKE ONE TABLET BY MOUTH EVERY DAY TAKE ONE TABLET BY MOUTH EVERY DAY SOLD: 05/28/2019 [facility] [facility] 2 % 05/26/2019 12:00:00 AM EST ointment 22 APPLY TO AFFECTED AREA(S) ON FOOT WOUND ONCE DAILY APPLY TO AFFECTED AREA(S) ON FOOT WOUND ONCE DAILY [facility] 1 mL 31 gauge x 516 05/26/2019 12:00:00 AM EST syringe 10 0 INJECT ADMELOG PER SLIDING SCALE INJECT ADMELOG PER SLIDING SCALE SOLD: 07/19/2019 [facility] 40 mg 05/25/2019 12:00:00 AM EST capsule,delayed release (DR/EC) 180 TAKE ONE CAPSULE BY MOUTH TWICE A DAY TAKE ONE CAPSULE BY MOUTH TWICE A DAY SOLD: 08/08/2019 [facility] Insulin Syringe-Needle U-100 05/25/2019 12:00:00 AM EST active [facility] ([facility]) 40 mg 05/25/2019 12:00:00 AM EST capsule,delayed release (DR/EC) 180 TAKE ONE CAPSULE BY MOUTH TWICE A DAY TAKE ONE CAPSULE BY MOUTH TWICE A DAY SOLD: 05/26/2019 [facility] 325 mg (65 mg iron) 05/25/2019 12:00:00 AM EST tablet 30 TAKE ONE TABLET BY MOUTH TWICE A DAY TAKE ONE TABLET BY MOUTH TWICE A DAY SOLD: 05/26/2019 [facility] 325 mg (65 mg iron) 05/25/2019 12:00:00 AM EST tablet 30 TAKE ONE TABLET BY MOUTH TWICE A DAY TAKE ONE TABLET BY MOUTH TWICE A DAY SOLD: 06/18/2019 [facility] Omeprazole 40 MG Delayed Release Oral Capsule Omeprazole 05/25/2019 12:00:00 AM EST ORAL active MED[facility] ([facility]) pregabalin 150 MG Oral Capsule Pregabalin 05/25/2019 12:00:00 AM EST ORAL active [facility] ([facility]) 150 mg 05/25/2019 12:00:00 AM EST capsule 60 TAKE ONE CAPSULE BY MOUTH TWICE A DAY MAXIMUM DAILY DOSE = 2 TAKE ONE CAPSULE BY MOUTH TWICE A DAY MA OMARM DAILY DOSE = 2 SOLD: 05/26/2019 [facility] 75 mg 05/17/2019 12:00:00 AM EST tablet 30 TAKE ONE TABLET BY MOUTH EVERY DAY TAKE ONE TABLET BY MOUTH EVERY DAY SOLD: 05/19/2019 [facility] 75 mg 05/17/2019 12:00:00 AM EST tablet 30 TAKE ONE TABLET BY MOUTH EVERY DAY TAKE ONE TABLET BY MOUTH EVERY DAY SOLD: 06/18/2019 [facility] 5 mg 05/15/2019 12:00:00 AM EST tablet 60 TAKE ONE TABLET BY MOUTH TWICE A DAY TAKE ONE TABLET BY MOUTH TWICE A DAY SOLD: 07/19/2019 [facility] 5 mg 05/15/2019 12:00:00 AM EST tablet 60 TAKE ONE TABLET BY MOUTH TWICE A DAY TAKE ONE TABLET BY MOUTH TWICE A DAY SOLD: 06/18/2019 [facility] 5 mg 05/15/2019 12:00:00 AM EST tablet 60 TAKE ONE TABLET BY MOUTH TWICE A DAY TAKE ONE TABLET BY MOUTH TWICE A DAY SOLD: 10/26/2019 [facility] 5 mg 05/15/2019 12:00:00 AM EST tablet 60 TAKE ONE TABLET BY MOUTH TWICE A DAY TAKE ONE TABLET BY MOUTH TWICE A DAY SOLD: 09/24/2019 [facility] 5 mg 05/15/2019 12:00:00 AM EST tablet 60 TAKE ONE TABLET BY MOUTH TWICE A DAY TAKE ONE TABLET BY MOUTH TWICE A DAY SOLD: 12/04/2019 [facility] 5 mg 05/15/2019 12:00:00 AM EST tablet 60 TAKE ONE TABLET BY MOUTH TWICE A DAY TAKE ONE TABLET BY MOUTH TWICE A DAY SOLD: 05/19/2019 [facility] 500 mg 05/11/2019 12:00:00 AM EST capsule 20 TAKE ONE CAPSULE BY MOUTH TWICE A DAY TAKE ONE CAPSULE BY MOUTH TWICE A DAY SOLD: 05/11/2019 [facility] 0.75 mg/0.5 mL 05/06/2019 12:00:00 AM EST pen injector 6 INJECT CONTENTS OF 1 PEN SUBCUTANEOUSLY ONCE A WEEK INJECT CONTENTS OF 1 PEN SUBCUTANEOUSLY ONCE A WEEK SOLD: 11/13/2019 [facility] 0.75 mg/0.5 mL 05/06/2019 12:00:00 AM EST pen injector 6 INJECT CONTENTS OF 1 PEN SUBCUTANEOUSLY ONCE A WEEK INJECT CONTENTS OF 1 PEN SUBCUTANEOUSLY ONCE A WEEK SOLD: 05/11/2019 [facility] 60 mg 04/21/2019 12:00:00 AM EST capsule,delayed release (DR/EC) 180 TAKE ONE CAPSULE BY MOUTH TWICE A DAY TAKE ONE CAPSULE BY MOUTH TWICE A DAY SOLD: 08/08/2019 [facility] 325 mg (65 mg iron) 04/21/2019 12:00:00 AM EST tablet 30 TAKE ONE TABLET BY MOUTH TWICE A DAY TAKE ONE TABLET BY MOUTH TWICE A DAY SOLD: 04/23/2019 [facility] 325 mg 04/21/2019 12:00:00 AM EST tablet 30 TAKE ONE TABLET BY MOUTH EVERY DAY TAKE ONE TABLET BY MOUTH EVERY DAY SOLD: 04/23/2019 [facility] 325 mg 04/21/2019 12:00:00 AM EST tablet 30 TAKE ONE TABLET BY MOUTH EVERY DAY TAKE ONE TABLET BY MOUTH EVERY DAY SOLD: 05/28/2019 [facility] 400 mg 04/21/2019 12:00:00 AM EST tablet extended release 90 TAKE ONE TABLET BY MOUTH THREE TIMES A DAY TAKE ONE TABLET BY MOUTH THREE TIMES A DAY SOLD: 08/31/2019 [facility] 40 mg 04/21/2019 12:00:00 AM EST tablet 30 TAKE ONE TABLET BY MOUTH EVERY EVENING TAKE ONE TABLET BY MOUTH EVERY EVENING SOLD: 04/23/2019 [facility] 40 mg 04/21/2019 12:00:00 AM EST tablet 30 TAKE ONE TABLET BY MOUTH EVERY EVENING TAKE ONE TABLET BY MOUTH EVERY EVENING SOLD: 05/28/2019 [facility] 60 mg 04/21/2019 12:00:00 AM EST capsule,delayed release (DR/EC) 180 TAKE ONE CAPSULE BY MOUTH TWICE A DAY TAKE ONE CAPSULE BY MOUTH TWICE A DAY SOLD: 04/23/2019 [facility] 400 mg 04/21/2019 12:00:00 AM EST tablet extended release 90 TAKE ONE TABLET BY MOUTH THREE TIMES A DAY TAKE ONE TABLET BY MOUTH THREE TIMES A DAY SOLD: 04/23/2019 [facility] 5 mg 04/20/2019 12:00:00 AM EST tablet 14 TAKE ONE TABLET BY MOUTH EVERY 12 HOURS NEEDED FOR MUSCLE SPASMS TAKE ONE TABLET BY MOUTH EVERY 12 HOURS NEEDED FOR MUSCLE SPASMS SOLD: 04/23/2019 [facility] TRESIBA FLEXTOUCH 200 UNIT/ML SOPN [id number] 72 U Subcutaneous active Inject 72 Units under the skin 2 (two) times a day [facility] 5 mg 03/29/2019 12:00:00 AM EST tablet 60 TAKE ONE TABLET BY MOUTH TWICE A DAY TAKE ONE TABLET BY MOUTH TWICE A DAY SOLD: 03/29/2019 [facility] Metoclopramide 5 MG Oral Tablet [Reglan] Reglan 03/29/2019 12:00: 00 AM EST ORAL completed [facility] ([facility]) 150 mg 03/27/2019 12:00:00 AM EST tablet 60 TAKE ONE TABLET BY MOUTH TWICE A DAY TAKE ONE TABLET BY MOUTH TWICE A DAY SOLD: 03/28/2019 [facility] B-D ULTRAFINE III SHORT PEN 31G X 8 MM [facility] [id number] 03/07/2019 12:00:00 AM EST aborted USE ONE PEN NEED LE EVERY DAY FOR TOUEO PEN [facility] 31 gauge x 5/16" 03/07/2019 12:00:00 AM EST needle 100 USE ONE PEN NEEDLE EVERY DAY FOR TOUEO PEN USE ONE PEN NEEDLE EVERY DAY FOR TOUEO PEN SOLD: 07/25/2019 [facility] 31 gauge x 5/16" 03/07/2019 12:00:00 AM EST needle 100 USE ONE PEN NEEDLE EVERY DAY FOR TOUEO PEN USE ONE PEN NEEDLE EVERY DAY FOR TOUEO PEN SOLD: 10/26/2019 [facility] 31 gauge x 5/16" 03/07/2019 12:00:00 AM EST needle 100 USE ONE PEN NEEDLE EVERY DAY FOR TOUEO PEN USE ONE PEN NEEDLE EVERY DAY FOR TOUEO PEN SOLD: 03/17/2019 [facility] 31 gauge x 5/16" 03/07/2019 12:00:00 AM EST needle 100 USE ONE PEN NEEDLE EVERY DAY FOR TOUEO PEN USE ONE PEN NEEDLE EVERY DAY FOR TOUEO PEN SOLD: 01/22/2020 [facility] Nystatin 100 UNT/MG Topical Powder nystatin (MYCOSTATI N) powder nystatin (MYCOSTATIN) powder 1 {application} Topical aborted Apply 1 application topically 2 (two) times a day as needed (for rash) [facility] Aspirin 325 MG Oral Tablet ASPIRIN ADULT 325 MG tablet ASPIRIN ADULT 325 MG tablet 03/06/2019 12:00:00 AM EST 325 mg Oral aborted Take 325 mg by mouth daily [facility] 0.75 mg/0.5 mL 02/27/2019 12:00:00 AM EST pen injector 6 INJECT 0.75 MG UNDER THE SKIN ONCE A WEEK INJECT 0.75 MG UNDER THE SKIN ONCE A WEEK SOLD: 03/17/2019 [facility] 0.5 ML dulaglutide 1.5 MG/ML Auto-Injector [Trulicity] [facility] 02/24/2019 12:00:00 AM EST SUBCUTANEOUS completed MED[facility] ([facility]) Fluconazole 200 MG Oral Tablet [Diflucan] Diflucan 02/24/2019 1 2:00:00 AM EST completed [facility] ([facility]) BLOOD SUGAR DIAGNOSTIC 02/23/2019 12:00:00 AM EST strip 150 TEST THREE TIMES A DAY WITH INSULIN USE TEST THREE TIMES A DAY WITH INSULIN USE SOLD: 05/28/19 20 [facility] STEGLATRO 15 MG TABS [id number] 15 mg Oral abor chanell Take 15 mg by mouth daily [facility] 15 mg 02/21/2019 12:00:00 AM EST tablet 90 TAKE ONE TABLET BY MOUTH EVERY DAY (BE SURE TO KEEP WELL HYDRATED) TAKE ONE TABLET BY MOUTH EVERY DAY (BE S URE TO KEEP WELL HYDRATED) SOLD: 05/19/2019 [facility] 15 mg 02/21/2019 12:00:00 AM EST tablet 87 TAKE ONE TABLET BY MOUTH EVERY DAY (BE SURE TO KEEP WELL HYDRATED) TAKE ONE TABLET BY MOUTH EVERY DAY (BE S URE TO KEEP WELL HYDRATED) SOLD: 09/22/2019 [facility] 500 mg 02/21/2019 12:00:00 AM EST tablet extended release 24 hr 360 TAKE TWO TABLETS BY MOUTH TWICE A DAY WITH MEALS TAKE TWO TABLETS BY MOUTH TWICE A DAY WITH MEALS SOLD: 06/18/2019 [facility] 30 ACTUAT fluticasone furoate 0.2 MG/ACT UAT / vilanterol 0.025 MG/ACTUAT Dry Powder Inhaler [Breo] BREO ELLIPTA 200-25 MCG/INH AEPB BREO ELLIPTA 200-25 MCG/INH AEPB 02/16/2019 12:00:00 AM EDT 1 {puff} Inhalation aborted Inhale 1 puff daily [facility] 200-25 mcg/dose 02/16/2019 12:00:00 AM EDT blister with jayla ce 60 INHALE ONE PUFF BY MOUTH EVERY DAY INHALE ONE PUFF BY MOUTH EVERY DAY SOLD: 07/19/2019 [facility] 200-25 mcg/dose 02/16/2019 12:00:00 AM EDT blister with jayla ce 60 INHALE ONE PUFF BY MOUTH EVERY DAY INHALE ONE PUFF BY MOUTH EVERY DAY SOLD: 06/10/2019 [facility] Nicotine 2 MG Oral Lozenge Nicotine Mini 02/16/2019 12:00:00 AM EDT ORAL completed [facility] ([facility]) pregabalin 150 MG Oral Capsule pregabalin (LYRICA) 150 MG capsule pregabalin (LYRICA) 150 MG capsule 150 mg Oral aborted Take 150 mg by mouth 2 (two) times a day [facility] 325 mg 11/03/2018 12:00:00 AM EDT tablet,delayed release (DR/EC) 30 TAKE ONE TABLET BY MOUTH EVERY DAY TAKE ONE TABLET BY MOUTH EVERY DAY SOLD: 10/19/2019 [facility] 325 mg 11/03/2018 12:00:00 AM EDT tablet,delayed release (DR/EC) 30 TAKE ONE TABLET BY MOUTH EVERY DAY TAKE ONE TABLET BY MOUTH EVERY DAY SOLD: 01/16/2020 [facility] 325 mg 11/03/2018 12:00:00 AM EDT tablet,delayed release (DR/EC) 30 TAKE ONE TABLET BY MOUTH EVERY DAY TAKE ONE TABLET BY MOUTH EVERY DAY SOLD: 08/17/2019 [facility] 325 mg 11/03/2018 12:00:00 AM EDT tablet,delayed release (DR/EC) 30 TAKE ONE TABLET BY MOUTH EVERY DAY TAKE ONE TABLET BY MOUTH EVERY DAY SOLD: 09/17/2019 [facility] 200 unit/mL (3 mL) 10/04/2018 12:00:00 AM EDT insulin pen 15 INJECT 50 UNITS UNDER THE SKIN TWO TIMES A DAY INJECT 50 UNITS UNDER THE SKIN TWO TIMES A DAY SOLD: 04/08/2019 [facility] 325 mg 09/26/2018 12:00:00 AM EDT tablet 30 TAKE ONE TABLET BY MOUTH EVERY DAY TAKE ONE TABLET BY MOUTH EVERY DAY SOLD: 03/17/2019 [facility] 10 mg 08/04/2018 12:00:00 AM EDT tablet 30 TAKE ONE TABLET BY MOUTH EVERY DAY TAKE ONE TABLET BY MOUTH EVERY DAY SOLD: 03/17/2019 [facility] 10 mg 08/04/2018 12:00:00 AM EDT tablet 30 TAKE ONE TABLET BY MOUTH EVERY DAY TAKE ONE TABLET BY MOUTH EVERY DAY SOLD: 04/23/2019 [facility] 100,000 unit/gram 07/04/2018 12:00:00 AM EDT powder 15 APPLY THIN LAYER ON RASH UNDER BREAST TWO TIMES A DAY APPLY THIN LAYER ON RASH UNDER BREAST TW O TIMES A DAY SOLD: 03/17/2019 [facility] 100 mg 06/13/2018 12:00:00 AM EST capsule 120 TAKE TWO CAPSULES BY MOUTH TWICE A DAY NEEDED TAKE TWO CAPSULES BY MOUTH TWICE A DAY NEEDED SOLD: 05/19/2019 [facility] 400 mg 06/10/2018 12:00:00 AM EST tablet extended release 90 TAKE ONE TABLET BY MOUTH THREE TIMES A DAY WITH MEALS TAKE ONE TABLET BY MOUTH THREE TIMES A DAY WITH MEALS SOLD: 05/28/2019 [facility] ONE TOUCH ULTRA TEST test strip [id number] 12/21/2015 12:00:00 AM EDT aborted USE TO TEST THREE TIMES A DA Y [facility] B-D INS SYR ULTRAFINE 1CC/31G 31G X 5/16" 1 ML [facility] [phone] 10/11/2015 12:00:00 AM EDT aborted USE THR EE TIMES A DAY [facility] Insulin Lispro 100 UNT/ML Injectable Kaushal ution insulin lispro (ADMELOG) 100 UNIT/ML injection insulin lispro (ADMELOG) 100 UNIT/ML injection Subcutaneous aborted Inject under the skin 3 times daily sliding scale [facility] Escitalopram 10 MG Oral Tablet escitalopram (LEXAPRO) 10 MG tablet escitalopram (LEXAPRO) 10 MG tablet 10 mg Oral aborted T fito 10 mg by mouth daily [facility] Acetaminophen 325 MG / Hydrocodone Marline trate 5 MG Oral Tablet HYDROcodone- acetaminophen (NORCO) 5-325 MG per tablet HYDROcodone-acetaminophen (NORCO) 5- 325 MG per tablet 1 {tbl} Oral aborted Take 1 tablet by mouth every 6 (six) hours as needed for pain [facility] duloxetine 60 MG Delayed Release Oral Ca psule DULoxetine (CYMBALTA) 60 MG capsule DULoxetine (CYMBALTA) 60 MG capsule 60 mg Oral aborted Take 60 mg by mouth 2 (two) times a day [facility] Insurance Providers Payer name Policy type / Coverage type Policy ID Covered constitution party ID Covered constitution party's relationship to amanda Policy Amanda Plan Information [facility] [id number] SP [id number] [facility] [id number] SP [id number] [facility] O [id number] S [id number] INSURANCE COVID-19 [id number] [facility] MEDICAID [id number] INSURANCE COVID-19 COVID Jojo C OVID [facility] MEDICAID [id number] Jojo [id number] [facility] MEDICAID [id number] Jojo [id number] [place] [id number] SP [id number] HMO BLUE [id number] SP [id number] HMO BLUE [id number] SP [id number] Managed Care - UHC Community Plan P [id number] S [id number] Medicaid S [id number] S [id number] UNHC COMMUNITY PLAN MCDHMO [id number] SP [id number] UNHC COMMUNITY PLAN MCDHMO [id number] SP [id number] [facility] Hmo Commercial [id number] Self [id number] [facility] (HMO) [id number] Self [id number] [facility] Hmo Commercial [id number] Self [id number] [facility] [employer] [facility] Commercial [id number] Self [id number] [place] Medig[place] [id number] Self [id number] Ghi FHP-(DO Not Use) Medigap Part B [id number] Self [id number] BS [place] Hmo Blue Option Medigap Part B [id number] Self [id number] [facility] Community Plan Commercial [id number] Self [id number] [employer] Commercial [id number] Self [id number] [employer] [employer] [facility] Commercial [id number] Self [id number] [employer] [employer] [facility] Commercial [id number] Self [id number] [facility] [employer] [facility] Commercial [id number] Self [id number] UNHC COMMUNITY PLAN XIX [id number] 18 [id number] [place] [id number] Self [id number] Ghi FHP-(DO Not Use) Medigap Part B [id number] Self [id number] BS [place] Hmo Blue Option Medigap Part B [id number] Self [id number] [place] [id number] Self [id number] Ghi FHP-(DO Not Use) Medigap Part B [id number] Self [id number] BS [place] Hmo Blue Option Medigap Part B [id number] Self [id number] [place] [id number] Self [id number] Ghi FHP-(DO Not Use) Medigap Part B [id number] Self [id number] BS [place] Hmo Blue Option Medigap Part B [id number] Self [id number] [facility] [employer] [facility] Commercial [id number] Self [id number] [employer] [employer] [place]/MCR Health Maintenance Organization (HMO) [id number] Self [id number] [facility] H[employer] Commercial [id number] Self [id number] [employer] [employer] [facility] Commercial [id number] Self [id number] [place] [id number] Self [id number] Ghi FHP-(DO Not Use) Medigap Part B [id number] Self [id number] [facility] [place] Hmo Blue Option Medigap Part B [id number] Self [id number] [place] [id number] Self [id number] Ghi FHP-(DO Not Use) Medigap Part B [id number] Self [id number] BS [place] Hmo Blue Option Medigap Part B [id number] Self [id number] [facility] COMM[facility]ITY PLAN MCDHMO [id number] SP [id number] [place] [id number] Self [id number] Ghi FHP-(DO Not Use) Medigap Part B [id number] Self [id number] BS [place] Hmo Blue Option Medigap Part B [id number] Self [id number] [place] [id number] Self [id number] Ghi FHP-(DO Not Use) Medigap Part B [id number] Self [id number] BS [place] Hmo Blue Option Medigap Part B [id number] Self [id number] [facility] Commercial [id number] Self [id number] [place] Part [place] [id number] Self [id number] Ghi FHP-(DO Not Use) Medigap Part B [id number] Self [id number] BS [place] Hmo Blue Option Medigap Part B [id number] Self [id number] [facility] Hmo Commercial [id number] Self [id number] Uh-Community Plan-[place] Commercial Self [facility] MEDICAID [id number] Jojo [id number] [facility] MEDICAID [id number] Jojo [id number] Managed Care - Community Plan [facility] P [id number] S [id number] [facility]/MCR Health Maintenance Organization (HMO) Self [facility] MEDICAID [place] HMO [id number] S [id number] Managed Care BCBS O [id number] S [id number] Self Pay O [id number] S [id number] Self Pay P UNAVAILABLE S UNAVAILA BLE Medicaid O UNAVAILABLE S UNAVAILA BLE MEDICAID [id number] SP [id number] Problems, Conditions, and Diagnoses Code Display Name Description Problem Type Effective Dates Data Source(s) J44.9 COPD (chronic obstructive pulmonary dise ase) COPD (chronic obstructive pulmonary disease) 24875472 04/12/2020 12:00:00 AM [facility] K21.9 Chronic GERD Chronic GERD 71823434 04/12/2020 12:00:00 A M [facility] E11.40 Diabetic neuropathy Diabetic neuropathy 50101505 1 06/13/2019 12:00:00 AM [facility] E78.5 HLD (hyperlipidemia) HLD (hyperlipidemia) 67597147 04/12/2020 12:00:00 AM [facility] F17.210 Heavy cigarette smoker (20-39 per day) H eavy cigarette smoker (20-39 per day) [id number] 04/12/2020 12:00:00 AM [facility] E11.59 Type 2 diabetes mellitus wit h circulatory disorder, with long-term current use of insulin Type [address] y disorder, with long-term current use of insulin 84664963 04/12/2020 12:00:00 AM [facility] S31.109A Right groin wound Right groin wound 16485813 04/12 12:00:00 AM [facility] 53445018 Coronary arteriosclerosis Coronary arteriosclerosis Pr oblem 02/20/2020 12:00:00 AM EST [facility] ([facility]) 90236828 Atherosclerosis of arteries of the extre mities Atherosclerosis of arteries of the extremities Problem 02/20/2020 12:00:00 AM EST MEDEN T ([facility]) 29935541 Infection due to Pseudomonas aeruginosa Infection due to Pseudomonas aeruginosa Problem 02/13/2020 12:00:00 AM EDT [facility] ([facility]) A49.8 Pseudomonas aeruginosa infection Pseudomonas aer uginosa infection 01483868 02/13/2020 12:00:00 AM [facility] [id number] Osteomyelitis of ankle AND/OR foot Osteomyelitis of ankle AND/OR foot Problem 02/07/2020 12:00:00 AM EDT [facility] ([facility]) M86.9 Osteomyelitis of foot Osteomyelitis of foot 86895482 02/07/2020 12:00:00 AM EDT [facility] Z48.812 Encounter for surgical after care following surgery on the circulatory system Encounter for surgical aftercare followi ng surgery on the circulatory system Problem 02/06/2020 01:00:00 AM EDT [facility]SM[facility] ([facility]) 45969868 Type 2 diabetes mellitus Type 2 diabetes mellitus Prob arnulfo 02/06/2020 12:00:00 AM EDT [facility] ([facility]) Note: Last Assessment & Plan: Diabetes i s poorly controlled. [id number] Ischemia of right lower extremity Ischem ia of right lower extremity Problem 02/06/2020 12:00:00 AM EDT [facility] ([facility]) 59063386 Hyperlipidemia Hyperlipidemia Problem 02/06/2020 12:00: 00 AM EDT [facility] ([facility]) Note: Last Assessment & Plan: Started on Atorvastatin 80mg 07/2019. She is tolerating medication without side effects. Due for repeat lipids. If LDL not <70 I recommend consideration to adding Zetia or PCSK9. Lipid order given to patient today [id number] Heavy cigarette smoker (20-39 cigs/day) Heavy cigarette smoker (20-39 cigs/day) Problem 02/06/2020 12:00:00 AM EDT [facility] ([facility]) Note: Overview: since 18 yo Last Assessm ent & Plan: Patient is a heavy smoker and is working on cutting back. She was prescribed nicotine patches and Wellbutrin and plans to start both in the near future. She was counseled extensively on the benefits of smoking cessation and the risks of continued tobacco abuse. 95049028 Chronic obstructive lung disease Chronic obstruc tive lung disease Problem 02/06/2020 12:00:00 AM EDT [facility] ([facility]) I99.8 Ischemia of right lower extremity Ischemia of ri ght lower extremity 76832611 02/06/2020 12:00:[address] 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 Com plication after wiring of sternum Problem 01/24/2020 12:00:00 AM EDT [facility] ([facility]) Note: Overview: Added automatically from request for surgery [id number] [id number] Protruding sternal wires Protruding sternal wires 6457 200001/24/2020 12:00:00 AM EDT [facility] 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 Proble m 01/17/2020 12:00:00 AM EDT eCW1 ([facility]) L97.509 784843639 Non-pressure chronic ulcer of other part of unspecified foot with unspecified severity Problem 01/17/2020 12:00:00 AM EDT eCW1 ([facility]) E11.621 462847211 Type 2 diabetes mellitus with foot ulcer Problem 01/17/2020 12:00:00 AM EDT eCW1 ([facility]) [id number] Long-term current use of oral hypoglycem ic medication Long-term current use of oral hypoglycemic medication Problem 01/05/2020 12:00 :00 AM EDT MED[facility] ([facility]) 201911387 Peripheral vascular disease Peripheral vascular diseas e Problem 11/20/2019 12:00:00 AM EDT [facility] ([facility]) Note: Last Assessment & Plan: Following closely with vascular. Smoking cessation strongly advised I73.9 Peripheral vascular disease Peripheral vascular diseas e 56195577 11/20/2019 12:00:00 AM EDT [facility] 88817449 Mild recurrent major depression Mild recurrent m ajor depression Problem 11/16/2019 12:00:00 AM EDT MED[facility] ([facility]) Pressure ulcer of left heel, stage 2 Pressure ul cer of left heel, stage 2 Problem 08/20/2019 12:00:00 AM EDT [facility] ([facility] 513571810 Type 2 diabetes mellitus with ulcer Type 2 diabetes mellitus with ulcer Problem 08/20/2019 12:00:00 AM EDT [facility] ([facility] [id number] Long-term current use of oral hypoglycem ic medication Long-term current use of oral hypoglycemic medication Problem 07/05/2019 12:00 :00 AM EDT [facility] ([facility]) Pressure ulcer of other site, stage 2 Pressure u lcer of other site, stage 2 Problem 05/21/2019 12:00:00 AM EST - 08/20/2019 12:00:00 AM ED T [facility] ([facility] Cellulitis of right lower limb Cellulitis of right low er limb Problem 05/21/2019 12:00:00 AM EST - 08/20/2019 12:00:00 AM EDT [facility] ([facility] 503048923 Coronary atherosclerosis Coronary atherosclerosis Prob arnulfo 05/11/2019 12:00:00 AM EST [facility] ([facility]) Note: Last Assessment & Plan: See dhiraj oliveira above I25.10 Coronary artery disease invo lving [place] coronary artery of [place] heart without angina pectoris Coronary artery disease involving [place] coronary artery of [place] heart without angina pectoris [id number] 05/11/2019 12:00:00 AM EST [facility] Type 2 diabetes mellitus with diabetic p olyneuropathy Type 2 diabetes mellitus with diabetic polyneuropathy Problem 05/11/2019 12:00:00 AM EST [facility] ([facility] Corns and callosities Corns and callosities Problem 05/11/2019 12:00:00 AM EST [facility] ([facility] 548711356 Onychomycosis Onychomycosis Problem 05/11/2019 12:00:00 AM EST [facility] ([facility] 47842354 Preoperative state Preoperative state Problem 12:00:00 AM CAILIN GARCIA ([facility]) Note: Last Assessment & Plan: She has [...] defer general medical clearance to her PCP Z01.818 Pre-operative clearance Pre-operative clearance [id number] 04/11/2019 12:00:00 AM [facility] I73.9 Peripheral vascular disease, unspecified Peripheral vascular disease, unspecified Diagnosis 2020 12:55:28 PM [facility] Z79.4 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 Diagnosis 2020 12:55:28 PM [facility] E11.51 Type 2 diabetes mellitus wit h diabetic peripheral angiopathy without gangrene Type 2 diabetes mellitus with diabetic p Diagnosis 2020 12:55:28 PM [facility] E78.5 Hyperlipidemia, unspecified Hyperlipidemia, unspecifie d Diagnosis 2020 12:55:28 PM [facility] F17.210 Nicotine dependence, cigarettes, uncompl icated Nicotine dependence, cigarettes, uncompl Diagnosis 2020 12:55:28 PM [facility] I25.10 Atherosclerotic heart diseas e of [place] coronary artery without angina pectoris Atherosclerotic heart disease of [place] Diagnosis 2020 12:55:28 PM [facility] S31.109A Unspecified open wound of ab dominal wall, unspecified quadrant without penetration into peritoneal cavity, initial encounter Unspecified open wound of abdominal wall Diagnosis 04/10/2020 11:17:08 PM [facility] M86.172 Other acute osteomyelitis, left ankle an d foot Other acute osteomyelitis, left ankle an Diagnosis 02/18/2020 04:40:24 PM EST [facility] T81.9XXA Unspecified complication of procedure, i nitial encounter Unspecified complication of procedure, i Diagnosis 02/18/2020 04:40:24 PM EST [facility] T81.89XA Other complications of proce dures, not elsewhere classified, initial encounter Other complications of procedures, not e Diagnosis 02/06/2020 11:29:36 AM EDT [facility] M86.171 Other acute osteomyelitis, right ankle a nd foot Other acute osteomyelitis, right ankle a Diagnosis 02/05/2020 04:17:29 AM EDT [facility] T81.89XA Other complications of proce dures, not elsewhere classified, initial encounter Other complications of procedures, not e Diagnosis 01/23/2020 11:08:56 AM EDT [facility] I21.4 Non-ST elevation (NSTEMI) myocardial inf arction Non-ST elevation (NSTEMI) myocardial inf Diagnosis 11/20/2019 09:49:26 AM EDT [facility] E11.59 Type 2 diabetes mellitus with other circ ulatory complications Type 2 diabetes mellitus with other circ Diagnosis 11/20/2019 09:49:26 AM EDT [facility] E78.49 Other hyperlipidemia Other hyperlipidemia Diagnosis 11/20/2019 09:49:26 AM EDT [facility] Z01.818 Encounter for other preprocedural examin ation Encounter for other preprocedural examin Diagnosis 05/11/2019 10:25:28 AM [facility] Surgeries/Procedures Procedure Description Date Indications Data Source(s) GLUC BLD GLUC MNTR DEV CLEARED FDA SPEC HOME USE POCT GLUCOSE Routine 04/15/2020 12:34 PM EST 04/15/2020 05:34:00 PM [facility] GLUC BLD GLUC MNTR DEV CLEARED FDA SPEC HOME USE POCT GLUCOSE Routine 04/15/2020 8:42 AM EST 04/15/2020 01:42:00 PM [facility] BLOOD COUNT COMPLETE AUTOMATED CBC Routine 04/15/2020 6:43 A M EST 04/15/2020 11:43:00 AM [facility] BASIC METABOLIC PANEL CALCIUM TOTAL BASIC METABOLIC PANEL Timed 04/15/2020 6:43 AM EST 04/15/2020 11:43:00 AM [facility] GLUC BLD GLUC MNTR DEV CLEARED FDA SPEC HOME USE POCT GLUCOSE Routine 04/15/2020 6:17 AM EST 04/15/2020 11:17:00 AM [facility] GLUC BLD GLUC MNTR DEV CLEARED FDA SPEC HOME USE POCT GLUCOSE Routine 04/14/2020 11:33 PM EST 04/15/2020 04:33:00 AM [facility] GLUC BLD GLUC MNTR DEV CLEARED FDA SPEC HOME USE POCT GLUCOSE Routine 04/14/2020 8:27 PM EST 04/15/2020 01:27:00 AM [facility] GLUC BLD GLUC MNTR DEV CLEARED FDA SPEC HOME USE POCT GLUCOSE Routine 04/14/2020 7:04 PM EST 04/15/2020 12:04:00 AM [facility] GLUC BLD GLUC MNTR DEV CLEARED FDA SPEC HOME USE POCT GLUCOSE Routine 04/14/2020 12:46 PM EST 04/14/2020 05:46:00 PM [facility] GLUC BLD GLUC MNTR DEV CLEARED FDA SPEC HOME USE POCT GLUCOSE Routine 04/14/2020 10:32 AM EST 04/14/2020 03:32:00 PM [facility] GLUC BLD GLUC MNTR DEV CLEARED FDA SPEC HOME USE POCT GLUCOSE Routine 04/14/2020 10:04 AM EST 04/14/2020 03:04:00 PM [facility] GLUC BLD GLUC MNTR DEV CLEARED FDA SPEC HOME USE POCT GLUCOSE Routine 04/14/2020 9:39 AM EST 04/14/2020 02:39:00 PM [facility] GLUC BLD GLUC MNTR DEV CLEARED FDA SPEC HOME USE POCT GLUCOSE Routine 04/14/2020 8:42 AM EST 04/14/2020 01:42:00 PM [facility] BLOOD COUNT COMPLETE AUTOMATED CBC Routine 04/14/2020 6:46 A M EST 04/14/2020 11:46:00 AM [facility] BASIC METABOLIC PANEL CALCIUM TOTAL BASIC METABOLIC PANEL Timed 04/14/2020 6:46 AM EST 04/14/2020 11:46:00 AM [facility] GLUC BLD GLUC MNTR DEV CLEARED FDA SPEC HOME USE POCT GLUCOSE Routine 04/13/2020 6:25 PM EST 04/13/2020 11:25:00 PM EST [facility] GLUC BLD GLUC MNTR DEV CLEARED FDA SPEC HOME USE POCT GLUCOSE Routine 04/13/2020 1:04 PM EST 04/13/2020 06:04:00 PM [facility] GLUC BLD GLUC MNTR DEV CLEARED FDA SPEC HOME USE POCT GLUCOSE Routine 04/13/2020 9:04 AM EST 04/13/2020 02:04:00 PM [facility] BLOOD COUNT COMPLETE AUTOMATED CBC Routine 04/13/2020 8:50 A M EST 04/13/2020 01:50:00 PM [facility] DRUG SCREEN QUALITATIVE VANCOMYCIN VANCOMYCIN, TROUGH Routine 04/13/2020 8:50 AM EST 04/13/2020 01:50:00 PM [facility] BASIC METABOLIC PANEL CALCIUM TOTAL BASIC METABOLIC PANEL Routi ne 04/13/2020 8:50 AM EST 04/13/2020 01:50:00 PM [facility] GLUC BLD GLUC MNTR DEV CLEARED FDA SPEC HOME USE POCT GLUCOSE Routine 04/12/2020 9:16 PM EST 04/13/2020 02:16:00 AM [facility] GLUC BLD GLUC MNTR DEV CLEARED FDA SPEC HOME USE POCT GLUCOSE Routine 04/12/2020 8:11 PM EST 04/13/2020 01:11:00 AM [facility] GLUC BLD GLUC MNTR DEV CLEARED FDA SPEC HOME USE POCT GLUCOSE Routine 04/12/2020 6:16 PM EST 04/12/2020 11:16:00 PM [facility] GLUC BLD GLUC MNTR DEV CLEARED FDA SPEC HOME USE POCT GLUCOSE Routine 04/12/2020 2:39 PM EST 04/12/2020 07:39:00 PM [facility] GLUC BLD GLUC MNTR DEV CLEARED FDA SPEC HOME USE POCT GLUCOSE Routine 04/12/2020 2:12 PM EST 04/12/2020 07:12:00 PM EST [facility] GLUC BLD GLUC MNTR DEV CLEARED FDA SPEC HOME USE POCT GLUCOSE Routine 04/12/2020 1:52 PM EST 04/12/2020 06:52:00 PM [facility] GLUC BLD GLUC MNTR DEV CLEARED FDA SPEC HOME USE POCT GLUCOSE Routine 04/12/2020 1:38 PM EST 04/12/2020 06:38:00 PM [facility] GLUC BLD GLUC MNTR DEV CLEARED FDA SPEC HOME USE POCT GLUCOSE Routine 04/12/2020 8:58 AM EST 04/12/2020 01:58:00 PM [facility] BLOOD COUNT COMPLETE AUTOMATED CBC Routine 04/12/2020 6:45 A M EST 04/12/2020 11:45:00 AM [facility] BASIC METABOLIC PANEL CALCIUM TOTAL BASIC METABOLIC PANEL Routi ne 04/12/2020 6:45 AM EST 04/12/2020 11:45:00 AM [facility] GLUC BLD GLUC MNTR DEV CLEARED FDA SPEC HOME USE POCT GLUCOSE Routine 04/11/2020 7:35 PM EST 04/12/2020 12:35:00 AM [facility] GLUC BLD GLUC MNTR DEV CLEARED FDA SPEC HOME USE POCT GLUCOSE Routine 04/11/2020 6:18 PM EST 04/11/2020 11:18:00 PM [facility] GLUC BLD GLUC MNTR DEV CLEARED FDA SPEC HOME USE POCT GLUCOSE Routine 04/11/2020 12:27 PM EST 04/11/2020 05:27:00 PM [facility] GLUC BLD GLUC MNTR DEV CLEARED FDA SPEC HOME USE POCT GLUCOSE Routine 04/11/2020 11:52 AM EST 04/11/2020 04:52:00 PM [facility] GLUC BLD GLUC MNTR DEV CLEARED FDA SPEC HOME USE POCT GLUCOSE Routine 04/11/2020 11:38 AM EST 04/11/2020 04:38:00 PM [facility] GLUC BLD GLUC MNTR DEV CLEARED FDA SPEC HOME USE POCT GLUCOSE Routine 04/11/2020 11:23 AM EST 04/11/2020 04:23:00 PM [facility] CTA ABDL AORTA&BI ILIOFEM W/CONTRAST&POSTPROCESS CT A NGIOGRAM ABDOMINAL AORTA AND BILATERAL RUNOFF Routine 04/11/2020 9:48 AM EST 04/11/2020 02:48:50 PM [facility] BLOOD COUNT COMPLETE AUTOMATED CBC Routine 04/11/2020 8:28 A M EST 04/11/2020 01:28:00 PM [facility] DRUG SCREEN QUALITATIVE VANCOMYCIN VANCOMYCIN, RANDOM STAT 04/11/2020 8:28 AM EST 04/11/2020 01:28:00 PM [facility] BASIC METABOLIC PANEL CALCIUM TOTAL BASIC METABOLIC PANEL Routi ne 04/11/2020 8:28 AM EST 04/11/2020 01:28:00 PM [facility] GLUC BLD GLUC MNTR DEV CLEARED FDA SPEC HOME USE POCT GLUCOSE Routine 04/11/2020 8:09 AM EST 04/11/2020 01:09:00 PM [facility] GLUC BLD GLUC MNTR DEV CLEARED FDA SPEC HOME USE POCT GLUCOSE Routine 04/11/2020 5:21 AM EST 04/11/2020 10:21:00 AM [facility] ECG ROUTINE ECG W/LEAST 12 LDS TRCG ONLY W/O I&R ECG 12-LEAD Routine 04/11/2020 4:53 AM EST 04/11/2020 09:53:27 AM [facility] GLUC BLD GLUC MNTR DEV CLEARED FDA SPEC HOME USE POCT GLUCOSE Routine 04/11/2020 1:07 AM EST 04/11/2020 06:07:00 AM [facility] IADNA S AUREUS METHICILLIN RESIST AMP PROBE TQ MRSA SCREEN BY P CR Routine 04/11/2020 12:50 AM EST 04/11/2020 05:50:00 AM [facility] CUL BACT XCPT URINE BLOOD/STOOL AEROBIC ISOL WOUND CULTURE Ro utine 04/11/2020 12:50 AM EST 04/11/2020 05:50:00 AM [facility] HEMOGLOBIN GLYCOSYLATED A1C HEMOGLOBIN A1C Routine 04/11/2020 12:47 AM EST 04/11/2020 05:47:[address] [facility] BLOOD COUNT COMPLETE AUTOMATED CBC Routine 04/11/2020 12:41 A M EST 04/11/2020 05:41:[address] [facility] COMPREHENSIVE METABOLIC PANEL COMPREHENSIVE METABOLIC PANEL Rou jw 04/11/2020 12:41 AM EST 04/11/2020 05:41:00 AM [facility] GLUC BLD GLUC MNTR DEV CLEARED FDA SPEC HOME USE POCT GLUCOSE Routine 04/11/2020 12:29 AM EST 04/11/2020 05:29:00 AM [facility] FINE NEEDLE ASPIRATION W/O IMAGING GUIDANCE 04/05/2020 12:00:00 AM EST [email or web address] ([facility]) DUP-SCAN LXTR ART/ARTL BPGS COMPL BI STUDY 03/21/2020 12:00:00 AM EST [facility] ([facility]) FINE NEEDLE ASPIRATION W/O IMAGING GUIDANCE 03/21/2020 12:00:00 AM EST [email or web address] ([facility]) DEBRIDEMENT NAIL ANY METHOD 6/> 03/05/2020 12:00:00 AM EST [facility] FINE NEEDLE ASPIRATION W/O IMAGING GUIDANCE 02/29/2020 12:00:00 AM EST [email or web address] ([facility]) GLUC BLD GLUC MNTR DEV CLEARED FDA SPEC HOME USE POCT GLUCOSE Routine 02/20/2020 5:06 PM EST 02/20/2020 10:06:00 PM EST [facility] GLUC BLD GLUC MNTR DEV CLEARED FDA SPEC HOME USE POCT GLUCOSE Routine 02/20/2020 11:28 AM EST 02/20/2020 04:28:00 PM EST [facility] GLUC BLD GLUC MNTR DEV CLEARED FDA SPEC HOME USE POCT GLUCOSE Routine 02/20/2020 10:36 AM EST 02/20/2020 03:36:00 PM EST [facility] GLUC BLD GLUC MNTR DEV CLEARED FDA SPEC HOME USE POCT GLUCOSE Routine 02/20/2020 8:25 AM EST 02/20/2020 01:25:00 PM [facility] BLOOD COUNT COMPLETE AUTOMATED CBC Timed 02/20/2020 3:36 A M EST 02/20/2020 08:36:00 AM [facility] 2019 NCOV AMPLIFIED 2019 NCOV AMPLIFIED Routine 02/20/2020 12:00 AM EST 02/20/2020 05:00:00 AM [facility] GLUC BLD GLUC MNTR DEV CLEARED FDA SPEC HOME USE POCT GLUCOSE Routine 02/19/2020 6:07 PM EST 02/19/2020 11:07:00 PM EST [facility] GLUC BLD GLUC MNTR DEV CLEARED FDA SPEC HOME USE POCT GLUCOSE Routine 02/19/2020 12:04 PM EST 02/19/2020 05:04:00 PM [facility] GLUC BLD GLUC MNTR DEV CLEARED FDA SPEC HOME USE POCT GLUCOSE Routine 02/19/2020 7:41 AM EST 02/19/2020 12:41:00 PM [facility] BASIC METABOLIC PANEL CALCIUM TOTAL BASIC METABOLIC PANEL Routi ne 02/19/2020 6:36 AM EST 02/19/2020 11:36:00 AM [facility] GLUC BLD GLUC MNTR DEV CLEARED FDA SPEC HOME USE POCT GLUCOSE Routine 02/18/2020 7:30 PM EST 02/19/2020 12:30:00 AM [facility] BLOOD COUNT COMPLETE AUTOMATED CBC Routine 02/18/2020 6:23 P M EST 02/18/2020 11:23:00 PM [facility] HEMOGLOBIN GLYCOSYLATED A1C HEMOGLOBIN A1C Routine 02/18/2020 6:23 PM EST 02/18/2020 11:23:00 PM [facility] GLUC BLD GLUC MNTR DEV CLEARED FDA SPEC HOME USE POCT GLUCOSE Routine 02/18/2020 5:48 PM EST 02/18/2020 10:48:00 PM [facility] GLUC BLD GLUC MNTR DEV CLEARED FDA SPEC HOME USE POCT GLUCOSE Routine 02/18/2020 5:16 PM EST 02/18/2020 10:16:00 PM [facility] GLUC BLD GLUC MNTR DEV CLEARED FDA SPEC HOME USE POCT GLUCOSE Routine 02/18/2020 5:02 PM EST 02/18/2020 10:02:00 PM EST [facility] GLUC BLD GLUC MNTR DEV CLEARED FDA SPEC HOME USE POCT GLUCOSE Routine 02/18/2020 4:53 PM EST 02/18/2020 09:53:00 PM EST [facility] GLUC BLD GLUC MNTR DEV CLEARED FDA SPEC HOME USE POCT GLUCOSE Routine 02/16/2020 7:23 AM EDT 02/16/2020 11:23:00 AM EDT [facility] GLUC BLD GLUC MNTR DEV CLEARED FDA SPEC HOME USE POCT GLUCOSE Routine 02/15/2020 5:11 PM EDT 02/15/2020 09:11:00 PM EDT [facility] GLUC BLD GLUC MNTR DEV CLEARED FDA SPEC HOME USE POCT GLUCOSE Routine 02/15/2020 12:23 PM EDT 02/15/2020 04:23:00 PM EDT [facility] GLUC BLD GLUC MNTR DEV CLEARED FDA SPEC HOME USE POCT GLUCOSE Routine 02/15/2020 8:47 AM EDT 02/15/2020 12:47:00 PM EDT [facility] BLOOD COUNT COMPLETE AUTOMATED CBC Timed 02/15/2020 5:24 A M EDT 02/15/2020 09:24:00 AM EDT [facility] BASIC METABOLIC PANEL CALCIUM TOTAL BASIC METABOLIC PANEL Timed 02/15/2020 5:24 AM EDT 02/15/2020 09:24:00 AM EDT [facility] GLUC BLD GLUC MNTR DEV CLEARED FDA SPEC HOME USE POCT GLUCOSE Routine 02/14/2020 6:11 PM EDT 02/14/2020 10:11:00 PM EDT [facility] GLUC BLD GLUC MNTR DEV CLEARED FDA SPEC HOME USE POCT GLUCOSE Routine 02/14/2020 1:01 PM EDT 02/14/2020 05:01:00 PM EDT [facility] GLUC BLD GLUC MNTR DEV CLEARED FDA SPEC HOME USE POCT GLUCOSE Routine 02/14/2020 9:01 AM EDT 02/14/2020 01:01:00 PM EDT [facility] BLOOD COUNT COMPLETE AUTOMATED CBC Timed 02/14/2020 4:58 A M EDT 02/14/2020 08:58:00 AM EDT [facility] BASIC METABOLIC PANEL CALCIUM TOTAL BASIC METABOLIC PANEL Timed 02/14/2020 4:58 AM EDT 02/14/2020 08:58:00 AM EDT [facility] GLUC BLD GLUC MNTR DEV CLEARED FDA SPEC HOME USE POCT GLUCOSE Routine 02/13/2020 5:52 PM EDT 02/13/2020 09:52:00 PM EDT [facility] GLUC BLD GLUC MNTR DEV CLEARED FDA SPEC HOME USE POCT GLUCOSE Routine 02/13/2020 12:20 PM EDT 02/13/2020 04:20:00 PM EDT [facility] GLUC BLD GLUC MNTR DEV CLEARED FDA SPEC HOME USE POCT GLUCOSE Routine 02/13/2020 9:27 AM EDT 02/13/2020 01:27:00 PM EDT [facility] GLUC BLD GLUC MNTR DEV CLEARED FDA SPEC HOME USE POCT GLUCOSE Routine 02/13/2020 8:48 AM EDT 02/13/2020 12:48:00 PM EDT [facility] BLOOD COUNT COMPLETE AUTOMATED CBC Timed 02/13/2020 5:15 A M EDT 02/13/2020 09:15:00 AM EDT [facility] BASIC METABOLIC PANEL CALCIUM TOTAL BASIC METABOLIC PANEL Timed 02/13/2020 5:15 AM EDT 02/13/2020 09:15:00 AM EDT [facility] GLUC BLD GLUC MNTR DEV CLEARED FDA SPEC HOME USE POCT GLUCOSE Routine 02/12/2020 7:55 PM EDT 02/12/2020 11:55:00 PM EDT [facility] GLUC BLD GLUC MNTR DEV CLEARED FDA SPEC HOME USE POCT GLUCOSE Routine 02/12/2020 5:46 PM EDT 02/12/2020 09:46:00 PM EDT [facility] BYP OTH/THN VEIN FEMORAL-POPLITEAL CREATION, BYPASS, ARTERIAL, FEMORAL TO POPLITEAL, USING GRAFT 02/12/2020 1:48 PM EDT Ischemic leg 02/12/2020 05:48:00 PM EDT - 02/12/2020 10:03:00 PM EDT Ischemic leg [facility] Ischemic leg DEBRIDEMENT SUBCUTANEOUS TISSUE 20 SQ CM/< DEBRIDEMENT, WOUND 02/12/2020 1:48 PM EDT Ischemic leg 02/12/2020 05:48:00 PM EDT - 02/12/2020 10:03:00 PM EDT Ischemic leg [facility] Ischemic leg GLUC BLD GLUC MNTR DEV CLEARED FDA SPEC HOME USE POCT GLUCOSE Routine 02/12/2020 12:48 PM EDT 02/12/2020 04:48:00 PM EDT [facility] GLUC BLD GLUC MNTR DEV CLEARED FDA SPEC HOME USE POCT GLUCOSE Routine 02/12/2020 12:07 PM EDT 02/12/2020 04:07:00 PM EDT [facility] GLUC BLD GLUC MNTR DEV CLEARED FDA SPEC HOME USE POCT GLUCOSE Routine 02/12/2020 9:12 AM EDT 02/12/2020 01:12:00 PM EDT [facility] BLOOD COUNT COMPLETE AUTOMATED CBC Timed 02/12/2020 3:45 A M EDT 02/12/2020 07:45:00 AM EDT [facility] BASIC METABOLIC PANEL CALCIUM TOTAL BASIC METABOLIC PANEL Timed 02/12/2020 3:45 AM EDT 02/12/2020 07:45:00 AM EDT [facility] 2019 NCOV AMPLIFIED 2019 NCOV AMPLIFIED STAT 02/12/2020 12:00 AM EDT 02/12/2020 04:00:[address] [facility] GLUC BLD GLUC MNTR DEV CLEARED FDA SPEC HOME USE POCT GLUCOSE Routine 02/11/2020 11:55 PM EDT 02/12/2020 03:55:00 AM EDT [facility] DEBRIDEMENT SUBCUTANEOUS TISSUE 20 SQ CM/< 02/12/2020 12:00:00 AM EDT [facility] ([facility]) DEBRIDEMENT BONE MUSCLE &/FASCIA 20 SQ CM/< 02/12/2020 12:00:00 AM EDT [facility] ([facility]) Bypass Graft W/Vein Femoral-Popliteal 02/12/2020 12:00 :00 AM EDT [facility] ([facility]) Bypass Graft Other Than Vein Femoral-Popliteal 020 12:00:00 AM EDT [facility] ([facility]) GLUC BLD GLUC MNTR DEV CLEARED FDA SPEC HOME USE POCT GLUCOSE Routine 02/11/2020 4:52 PM EDT 02/11/2020 08:52:00 PM EDT [facility] GLUC BLD GLUC MNTR DEV CLEARED FDA SPEC HOME USE POCT GLUCOSE Routine 02/11/2020 2:11 PM EDT 02/11/2020 06:11:00 PM EDT [facility] GLUC BLD GLUC MNTR DEV CLEARED FDA SPEC HOME USE POCT GLUCOSE Routine 02/11/2020 8:49 AM EDT 02/11/2020 12:49:00 PM EDT [facility] BLOOD COUNT COMPLETE AUTOMATED CBC Timed 02/11/2020 5:30 A M EDT 02/11/2020 09:30:00 AM EDT [facility] MAGNESIUM MAGNESIUM Timed 02/11/2020 5:30 AM EDT 02/11/2020 09:30:00 AM EDT [facility] DRUG SCREEN QUALITATIVE VANCOMYCIN VANCOMYCIN, TROUGH STAT 02/11/2020 5:30 AM EDT 02/11/2020 09:30:00 AM EDT [facility] BASIC METABOLIC PANEL CALCIUM TOTAL BASIC METABOLIC PANEL Timed 02/11/2020 5:30 AM EDT 02/11/2020 09:30:00 AM EDT [facility] GLUC BLD GLUC MNTR DEV CLEARED FDA SPEC HOME USE POCT GLUCOSE Routine 02/10/2020 5:13 PM EDT 02/10/2020 09:13:00 PM EDT [facility] GLUC BLD GLUC MNTR DEV CLEARED FDA SPEC HOME USE POCT GLUCOSE Routine 02/10/2020 3:21 PM EDT 02/10/2020 07:21:00 PM EDT [facility] GLUC BLD GLUC MNTR DEV CLEARED FDA SPEC HOME USE POCT GLUCOSE Routine 02/10/2020 1:05 PM EDT 02/10/2020 05:05:00 PM EDT [facility] GLUC BLD GLUC MNTR DEV CLEARED FDA SPEC HOME USE POCT GLUCOSE Routine 02/10/2020 9:33 AM EDT 02/10/2020 01:33:00 PM EDT [facility] BLOOD COUNT COMPLETE AUTOMATED CBC Timed 02/10/2020 3:40 A M EDT 02/10/2020 07:40:00 AM EDT [facility] BLOOD TYPING ABO TYPE AND SCREEN Routine 02/10/2020 3:40 AM EDT 02/10/2020 07:40:00 AM EDT [facility] MAGNESIUM MAGNESIUM Timed 02/10/2020 3:40 AM EDT 02/10/2020 07:40:00 AM EDT [facility] BASIC METABOLIC PANEL CALCIUM TOTAL BASIC METABOLIC PANEL Timed 02/10/2020 3:40 AM EDT 02/10/2020 07:40:00 AM EDT [facility] GLUC BLD GLUC MNTR DEV CLEARED FDA SPEC HOME USE POCT GLUCOSE Routine 02/09/2020 6:20 PM EDT 02/09/2020 10:20:00 PM EDT [facility] GLUC BLD GLUC MNTR DEV CLEARED FDA SPEC HOME USE POCT GLUCOSE Routine 02/09/2020 10:18 AM EDT 02/09/2020 02:18:00 PM EDT [facility] INTRODUCTION CATHETER AORTA IR IS ARTERIOGRAM ILIAC SELECTIVE R outine 02/09/2020 10:05 AM EDT 02/09/2020 02:05:29 PM EDT [facility] DRUG SCREEN QUALITATIVE VANCOMYCIN VANCOMYCIN, TROUGH STAT 02/09/2020 8:30 AM EDT 02/09/2020 12:30:00 PM EDT [facility] BLOOD COUNT COMPLETE AUTOMATED CBC Timed 02/09/2020 3:00 A M EDT 02/09/2020 07:00:00 AM EDT [facility] MAGNESIUM MAGNESIUM Timed 02/09/2020 3:00 AM EDT 02/09/2020 07:00:00 AM EDT [facility] BASIC METABOLIC PANEL CALCIUM TOTAL BASIC METABOLIC PANEL Timed 02/09/2020 3:00 AM EDT 02/09/2020 07:00:00 AM EDT [facility] Catheter Introduction Aorta 02/09/2020 12:00:00 AM EDT [facility] ([facility]) Iliac Angioplasty-Initial 02/09/2020 12:00:00 AM EDT [facility] ([facility]) Iliac Angioplasty-Each Additio 02/09/2020 12:00:00 AM EDT [facility] ([facility]) Moderate Sedation Services; Same Phys Intl 15 Mins; PT >= 5 Years 02/09/2020 12:00:00 AM EDT [facility] ([facility]) GLUC BLD GLUC MNTR DEV CLEARED FDA SPEC HOME USE POCT GLUCOSE Routine 02/08/2020 5:50 PM EDT 02/08/2020 09:50:00 PM EDT [facility] MRI LOWER EXTREM OTH/THN JT W/O CONTR MATRL MRI LOW E XT NO JNT WO CONTRAST LEFT Routine 02/08/2020 3:51 PM EDT 02/08/2020 07:51 :36 PM EDT [facility] GLUC BLD GLUC MNTR DEV CLEARED FDA SPEC HOME USE POCT GLUCOSE Routine 02/08/2020 2:49 PM EDT 02/08/2020 06:49:00 PM EDT [facility] GLUC BLD GLUC MNTR DEV CLEARED FDA SPEC HOME USE POCT GLUCOSE Routine 02/08/2020 12:59 PM EDT 02/08/2020 04:59:00 PM EDT [facility] XR CHEST PORTABLE XR CHEST PORTABLE STAT 02/08/2020 12:19 PM EDT 02/08/2020 04:19:34 PM EDT [facility] ECG ROUTINE ECG W/LEAST 12 LDS W/I&R ECG 12-LEAD Routine 02/08/2020 12:15 PM EDT 02/08/2020 04:15:50 PM EDT [facility] GLUC BLD GLUC MNTR DEV CLEARED FDA SPEC HOME USE POCT GLUCOSE Routine 02/08/2020 12:06 PM EDT 02/08/2020 04:06:00 PM EDT [facility] REMOVAL IMPLANT DEEP REMOVAL, STERNAL WIRE, WITH REWIRING IF IN DICATED 02/08/2020 10:31 AM EDT Protruding sternal wires, initial encounter 02/08/2020 02:31:00 PM EDT - 02/08/2020 04:18:00 PM EDT Protruding sternal wires, initial encounter [facility] Protruding sternal wires, initial encoun ter GLUC BLD GLUC MNTR DEV CLEARED FDA SPEC HOME USE POCT GLUCOSE Routine 02/08/2020 8:17 AM EDT 02/08/2020 12:17:00 PM EDT [facility] SEDIMENTATION RATE RBC AUTOMATED SEDIMENTATION RATE Routine 02/08/2020 5:30 AM EDT 02/08/2020 09:30:00 AM EDT [facility] C-REACTIVE PROTEIN C-REACTIVE PROTEIN Routine 02/08/2020 5:30 AM E DT 02/08/2020 09:30:[address] [facility] DRUG SCREEN QUALITATIVE VANCOMYCIN VANCOMYCIN, TROUGH Routine 02/08/2020 5:30 AM EDT 02/08/2020 09:30:00 AM EDT [facility] BASIC METABOLIC PANEL CALCIUM TOTAL BASIC METABOLIC PANEL Timed 02/08/2020 5:30 AM EDT 02/08/2020 09:30:00 AM EDT [facility] ECG ROUTINE ECG W/LEAST 12 LDS W/I&R 02/08/2020 12:00: 00 AM EDT [facility] ([facility]) MRI LOWER EXTREM OTH/THN JT W/O CONTR MATRL 02/08/2020 12:00:00 AM EDT [facility] ([facility]) Radiologic Exam, Chest, Single View 02/08/2020 12:00:0 0 AM EDT [facility] ([facility]) REMOVAL IMPLANT DEEP 02/08/2020 12:00:00 AM EDT [facility] ([facility]) GLUC BLD GLUC MNTR DEV CLEARED FDA SPEC HOME USE POCT GLUCOSE Routine 02/07/2020 5:32 PM EDT 02/07/2020 09:32:00 PM EDT [facility] GLUC BLD GLUC MNTR DEV CLEARED FDA SPEC HOME USE POCT GLUCOSE Routine 02/07/2020 11:59 AM EDT 02/07/2020 03:59:00 PM EDT [facility] THROMBOPLASTIN TIME PARTIAL PLASMA/WHOLE BLOOD APTT Routine 02/07/2020 10:36 AM EDT 02/07/2020 02:36:00 PM EDT [facility] PROTHROMBIN TIME PROTIME-INR Routine 02/07/2020 10:36 AM EDT 02/07/2020 02:36:00 PM EDT [facility] HEMOGLOBIN GLYCOSYLATED A1C HEMOGLOBIN A1C Routine 02/07/2020 10:35 AM EDT 02/07/2020 02:35:[address] [facility] CUL BACT XCPT URINE BLOOD/STOOL AEROBIC ISOL WOUND CULTURE Ro utine 02/07/2020 10:15 AM EDT 02/07/2020 02:15:00 PM EDT [facility] CUL BACT XCPT URINE BLOOD/STOOL AEROBIC ISOL WOUND CULTURE Ro utine 02/07/2020 10:15 AM EDT 02/07/2020 02:15:00 PM EDT [facility] CULTURE BACTERIAL ANY SOURCE ANAEROBIC ISO&ID ANAEROBIC CULTURE Routine 02/07/2020 10:15 AM EDT 02/07/2020 02:15:00 PM EDT [facility] CULTURE BACTERIAL ANY SOURCE ANAEROBIC ISO&ID ANAEROBIC CULTURE Routine 02/07/2020 10:15 AM EDT 02/07/2020 02:15:00 PM EDT [facility] GLUC BLD GLUC MNTR DEV CLEARED FDA SPEC HOME USE POCT GLUCOSE Routine 02/07/2020 8:41 AM EDT 02/07/2020 12:41:00 PM EDT [facility] BLOOD COUNT COMPLETE AUTOMATED CBC Routine 02/07/2020 5:48 A M EDT 02/07/2020 09:48:[address] [facility] BASIC METABOLIC PANEL CALCIUM TOTAL BASIC METABOLIC PANEL Timed 02/07/2020 5:48 AM EDT 02/07/2020 09:48:00 AM EDT [facility] MRI LOWER EXTREM OTH/THN JT W/O CONTR MATRL MRI LOW E XT NO JNT WO CONTRAST RIGHT Routine 02/06/2020 8:59 PM EDT 02/07/2020 12:59 :42 AM EDT [facility] MRI LOWER EXTREM OTH/THN JT W/O CONTR MATRL 02/07/2020 12:00:00 AM EDT [facility] ([facility]) GLUC BLD GLUC MNTR DEV CLEARED FDA SPEC HOME USE POCT GLUCOSE Routine 02/06/2020 6:45 PM EDT 02/06/2020 10:45:00 PM EDT [facility] GLUC BLD GLUC MNTR DEV CLEARED FDA SPEC HOME USE POCT GLUCOSE Routine 02/06/2020 12:20 PM EDT 02/06/2020 04:20:00 PM EDT [facility] GLUC BLD GLUC MNTR DEV CLEARED FDA SPEC HOME USE POCT GLUCOSE Routine 02/06/2020 9:00 AM EDT 02/06/2020 01:00:00 PM EDT [facility] BLOOD COUNT COMPLETE AUTOMATED CBC Routine 02/06/2020 6:24 A M EDT 02/06/2020 10:24:[address] [facility] BASIC METABOLIC PANEL CALCIUM TOTAL BASIC METABOLIC PANEL Routi ne 02/06/2020 6:24 AM EDT 02/06/2020 10:24:00 AM EDT [facility] GLUC BLD GLUC MNTR DEV CLEARED FDA SPEC HOME USE POCT GLUCOSE Routine 02/06/2020 12:10 AM EDT 02/06/2020 04:10:00 AM EDT [facility] POC ARTERIAL BLOOD GAS W ALISON POC ARTERIAL BLOOD GAS W ALISON R outine 02/05/2020 9:08 PM EDT 02/06/2020 01:08:00 AM EDT [facility] CREATION, BYPASS, ARTERIAL, FEMORAL TO POPLITEAL, USIN G GRAFT CREATION, BYPASS, ARTERIAL, FEMORAL TO POPLITEAL, USING GRAFT 02/05/2020 7:3 6 PM EDT claudication 02/05/2020 11:36:00 PM EDT - 02/06/2020 04:24:00 AM EDT [facility] GLUC BLD GLUC MNTR DEV CLEARED FDA SPEC HOME USE POCT GLUCOSE Routine 02/05/2020 6:58 PM EDT 02/05/2020 10:58:00 PM EDT [facility] GLUC BLD GLUC MNTR DEV CLEARED FDA SPEC HOME USE POCT GLUCOSE Routine 02/05/2020 6:36 PM EDT 02/05/2020 10:36:00 PM EDT [facility] THROMBOPLASTIN TIME PARTIAL PLASMA/WHOLE BLOOD APTT STAT 02/05/2020 4:11 PM EDT 02/05/2020 08:11:00 PM EDT [facility] 2019 NCOV AMPLIFIED 2018 NCOV AMPLIFIED STAT 02/05/2020 2:45 PM EDT 02/05/2020 06:45:[address] [facility] GLUC BLD GLUC MNTR DEV CLEARED FDA SPEC HOME USE POCT GLUCOSE Routine 02/05/2020 1:46 PM EDT 02/05/2020 05:46:00 PM EDT [facility] XR CHEST PORTABLE XR CHEST PORTABLE Routine 02/05/2020 10:47 AM EDT 02/05/2020 02:47:[address] [facility] ECG ROUTINE ECG W/LEAST 12 LDS W/I&R ECG 12-LEAD Routine 02/05/2020 10:05 AM EDT 02/05/2020 02:05:29 PM EDT [facility] LEVEL IV SURG PATHOLOGY GROSS&MICROSCOPIC EXAM [facility] HISTOLOGY Routine 02/05/2020 9:56 AM EDT 02/05/2020 01:56:00 PM EDT [facility] CTA ABDL AORTA&BI ILIOFEM W/CONTRAST&POSTPROCESS CT A NGIOGRAM ABDOMINAL AORTA AND BILATERAL RUNOFF STAT 02/05/2020 9:25 AM EDT 02/05/2020 01:25:39 PM EDT [facility] GLUC BLD GLUC MNTR DEV CLEARED FDA SPEC HOME USE POCT GLUCOSE Routine 02/05/2020 8:41 AM EDT 02/05/2020 12:41:00 PM EDT [facility] CULTURE BACTERIAL BLOOD AEROBIC W/ID ISOLATES BLOOD CULTURE R outine 02/05/2020 6:09 AM EDT 02/05/2020 10:09:00 AM EDT [facility] CULTURE BACTERIAL BLOOD AEROBIC W/ID ISOLATES BLOOD CULTURE R outine 02/05/2020 6:09 AM EDT 02/05/2020 10:09:00 AM EDT [facility] THROMBOPLASTIN TIME PARTIAL PLASMA/WHOLE BLOOD APTT Routine 02/05/2020 6:09 AM EDT 02/05/2020 10:09:00 AM EDT [facility] PROTHROMBIN TIME PROTIME-INR Routine 02/05/2020 6:09 AM EDT 02/05/2020 10:09:00 AM EDT [facility] BLOOD COUNT COMPLETE AUTOMATED CBC Routine 02/05/2020 6:09 A M EDT 02/05/2020 10:09:[address] [facility] BLOOD TYPING ABO TYPE AND SCREEN Routine 02/05/2020 6:09 AM EDT 02/05/2020 10:09:00 AM EDT [facility] COMPREHENSIVE METABOLIC PANEL COMPREHENSIVE METABOLIC PANEL Rou jw 02/05/2020 6:09 AM EDT 02/05/2020 10:09:00 AM EDT [facility] Bypass Graft Other Than Vein Femoral-Popliteal 020 12:00:00 AM EDT [facility] ([facility]) Bypass Graft Other Than Vein Iliofemoral 02/05/2020 12 :00:00 AM EDT [facility] ([facility]) Radiologic Exam, Chest, Single View 02/05/2020 12:00:0 0 AM EDT [facility] ([facility]) Comp Tomogrp Angiog AB Aorta & Bilateral Iliofemoral LW Ext Runof 02/05/2020 12:00:00 AM EDT [facility] ([facility]) ECG ROUTINE ECG W/LEAST 12 LDS W/I&R 02/05/2020 12:00: 00 AM EDT [facility] ([facility]) FINE NEEDLE ASPIRATION W/O IMAGING GUIDANCE 02/02/2020 12:00:00 AM EDT eCW1 ([facility]) FINE NEEDLE ASPIRATION W/O IMAGING GUIDANCE 01/26/2020 12:00:00 AM EDT eCW1 ([facility]) FINE NEEDLE ASPIRATION W/O IMAGING GUIDANCE 01/17/2020 12:00:00 AM EDT eCW1 ([facility]) DEBRIDEMENT BONE MUSCLE &/FASCIA 20 SQ CM/< 12/31/2019 12:00:00 AM EDT [facility] ([facility] DEBRIDEMENT NAIL ANY METHOD 6/> 12/11/2019 12:00:00 AM EDT [facility] ([facility] DEBRIDEMENT SUBCUTANEOUS TISSUE 20 SQ CM/< 12/04/2019 12:00:00 AM EDT [facility] ([facility] DEBRIDEMENT SUBCUTANEOUS TISSUE 20 SQ CM/< 11/21/2019 12:00:00 AM EDT [facility] ([facility] DEBRIDEMENT SUBCUTANEOUS TISSUE 20 SQ CM/< 11/14/2019 12:00:00 AM EDT [facility] ([facility] DEBRIDEMENT SUBCUTANEOUS TISSUE 20 SQ CM/< 10/11/2019 12:00:00 AM EDT [facility] ([facility] Ostectomy Partial Excision 5TH Metatarsal Head (Catherine) 10/11/2019 12:00:00 AM EDT [facility] ([facility] DEBRIDEMENT SUBCUTANEOUS TISSUE 20 SQ CM/< 10/02/2019 12:00:00 AM EDT [facility] ([facility] Electrocardiogram Complete 09/27/2019 12:00:00 AM EDT [facility] ([facility]) DEBRIDEMENT SUBCUTANEOUS TISSUE 20 SQ CM/< 09/25/2019 12:00:00 AM EDT [facility] ([facility] REVSC OPN/PRQ FEM/POP W/STNT/ANGIOP SM VSL 09/19/2019 12:00:00 AM EDT [facility] ([facility], ) REVSC OPN/PRQ TIB/DONALD W/ANGIOPLASTY UNI 09/19/2019 12 :00:00 AM EDT [facility] ([facility], ) Moderate Sedation Services; Same Phys Intl 15 Mins; PT >= 5 Years 09/19/2019 12:00:00 AM EDT [facility] DEBRIDEMENT SUBCUTANEOUS TISSUE 20 SQ CM/< 08/15/2019 12:00:00 AM EDT [facility] DEBRIDEMENT SUBCUTANEOUS TISSUE 20 SQ CM/< 08/08/2019 12:00:00 AM EDT [facility] REVSC OPN/PRQ FEM/POP W/STNT/ANGIOP SM VSL 07/26/2019 12:00:00 AM EDT [facility] ([facility]) Aortography Abdominal & Bilat Iliofemoral LWR Extremity Cath 07/26/2019 12:00:00 AM EDT [facility] ([facility]) Angiography Selective, Each Addtl Vessel Studied After Exam 07/26/2019 12:00:00 AM EDT [facility] ([facility]) Moderate Sedation Services; Same Phys Intl 15 Mins; PT >= 5 Years 07/26/2019 12:00:00 AM EDT [facility] ([facility]) DEBRIDEMENT SUBCUTANEOUS TISSUE 20 SQ CM/< 06/08/2019 12:00:00 AM EST [facility] DEBRIDEMENT SUBCUTANEOUS TISSUE 20 SQ CM/< 05/25/2019 12:00:00 AM EST [facility] Revascularization,Endovascular,Transluminal Stent Placement 05/17/2019 12:00:00 AM EST [facility] ([facility]) Revascularization,Endovascular,Transluminal Angioplasty 05/17/2019 12:00:00 AM EST [facility] ([facility]) REVSC OPN/PRQ TIB/DONALD W/ANGIOPLASTY UNI 05/17/2019 12 :00:00 AM EST [facility] ([facility]) Angiography Extremity Unilateral 05/17/2019 12:00:00 A M EST [facility] ([facility]) Angiography Selective, Each Addtl Vessel Studied After Exam 05/17/2019 12:00:00 AM EST [facility] ([facility]) Moderate Sedation Services; Same Phys Intl 15 Mins; PT >= 5 Years 05/17/2019 12:00:00 AM EST [facility] ([facility] PARING/CUTTING BENIGN HYPERKERATOTIC LESION 2-4 2019 12:00:00 AM EST [facility] ([facility] DEBRIDEMENT NAIL ANY METHOD 6/> 04/28/2019 12:00:00 AM EST [facility] ([facility] Results ID Date Data Source [id number] 04/27/2020 06:31:42 AM EST [facility] NT INFORMATIONPatient MRN Name Date of Age Gend*PT [id number] Tatianna Soto 1965 55 years F IPPT Location Admission Date/Time Visit ID Attending [id number] 04/10/20 2317 --- --- EPI ID CSN Admitting Provider [id number] Brittani Birmingham MD([id number]) Attestation signed by Brittani Birmingham MD at 04/27/2020 6:31 AMI saw and evaluated the patient and reviewed pa's note. I agree with thehistory, physical and medical decision making with the following additions,exceptions, and/or observations:Signature: TIMA Lawrenceate: April 27, 2020Time: 6:31 AM --Surgical Discharge Viviane SotoMRN: [id number] date: 04/10/2020Admitting Physician: TIMA Lawrenceischarge date and time: Pt being discharged on April 15, 2020 at 1300 tohome.Discharge Physician: Norman Shepherd Diagnosis: Right groin woundSecondary Diagnoses:Active Hospital Problems Diagnosis Date Noted Right groin wound 04/12/2020 Osteomyelitis of foot 02/07/2020 Ischemia of right lower extremity 02/06/2020 COPD (chronic obstructive pulmonary disease) Peripheral vascular disease 11/20/2019 Heavy cigarette smoker (20-39 per day) since 18 yo HLD (hyperlipidemia) Diabetic neuropathy Chronic GERD controlled on PPI Type 2 diabetes mellitus with circulatory disorder, with long-term current useof insulinResolved Hospital ProblemsNo resolved problems to display.Discharge Medications:Your medication listSTART taking these medications Instructions Last Dose Given Morning Afternoon Evening Bedtime As Neededamoxicillin- clavulanate 875-125 MG per tabletCommonly known as: AUGMENTIN Take 1 tablet by mouth 2 (two) times a day for 2 daysCONTINUE taking these medications Instructions Last Dose Given Morning Afternoon Evening Bedtime As Neededalbuterol 108 (90 Base) MCG/ACT inhalerCommonly known as: PROVENTIL HFA;VENTOLIN HFA Inhale 2 puffs every 4 (four) hours as needed for shortness of breathAspirin Adult 325 MG tabletGeneric drug: aspirin Take 325 mg by mouth dailyatorvastatin 80 MG tabletCommonly known as: LIPITOR Take 80 mg by mouth dailybuPROPion 150 MG 24 hr tabletCommonly known as: WELLBUTRIN XL Take 150 mg by mouth dailyclopidogrel 75 MG tabletCommonly known as: PLAVIX Take 75 mg by mouth dailycyclobenzaprine 5 MG tabletCommonly known as: FLEXERIL Take 5 mg by mouth 2 (two) times a day as needed for muscle spasmsdocusate sodium 100 MG capsuleCommonly known as: COLACE Take 200 mg by mouth 2 (two) times a day as needed for constipationferrous sulfate 325 (65 FE) MG EC tablet Take 325 mg by mouth daily with breakfastlisinopril 5 MG tabletCommonly known as: PRINIVIL,ZESTRIL Take 5 mg by mouth dailyloratadine 10 MG tabletCommonly known as: CLARITIN Take 10 mg by mouth dailymetoclopramide 10 MG tabletCommonly known as: REGLAN Take 10 mg by mouth 2 (two) times a dayomeprazole 40 MG capsuleCommonly known as: PriLOSEC Take 40 mg by mouth 2 (two) times a dayondansetron 4 MG disintegrating tabletCommonly known as: ZOFRAN-ODT Take 4 mg by mouth every 8 (eight) hours as needed for nauseaoxyCODONE-acetaminophen 5- 325 MG per tabletCommonly known as: PERCOCET TAKE ONE TABLET BY MOUTH EVERY 4 HOURS NEEDED FOR PAIN MAXIMUM DAILY DOSE6 TABLETSpentoxifylline 400 MG CR tabletCommonly known as: TRENTal Take 400 mg by mouth 3 (three) times a day with mealspregabalin 200 MG capsuleCommonly known as: LYRICA TAKE ONE CAPSULE BY MOUTH TWICE A DAY MAXIMUM DAILY DOSE 2 CAPSULESSteglatro 15 MG TabsGeneric drug: Ertugliflozin L-PyroglutamicAc Take 15 mg by mouth dailyTresiba FlexTouch 200 UNIT/ML SopnGeneric drug: Insulin Degludec Inject 72 Units under the skin 2 (two) times a dayTrulicity 1.5 MG/0.5ML SopnGeneric drug: Dulaglutide Inject 4.5 mg under the skin once a week on SundaysTOP taking these medicationsnystatin powderCommonly known as: MYCOSTATINWhere to Get Your MedicationsThese medications were sent to [facility] [phone] [place] [phone] amoxicillin-clavulanate 875-125 MG per tabletIndication for Admission: R groin infectionAdmission H&P: 54 years White or female, well known patient to thevascular surgery service with a past medical history significant for PVD andischemia, CAD (s/p quintuple bypass graft 01/16/2016), HTN, DM, COPD,hyperlipidemia, PAD, HERMAN and heavy smoker) has been transferred from [facility] ED with a right groin infection. Patient claims she [facility] by her home care nurses as she was having extremely foul smellingpurulent drainage and pain in the groin. Patient is not a good historian, sheclaims that the redness may have been there for about a week and the foul smellfor about 3 days. 02/05/20: Right femoral endarterectomy, Iliac to profunda femoral bypass [id number] ringed PTFE and Jump graft from the Right Iliofemoral bypass to the belowknee popliteal artery using 6mm Ringed PTFE. Ligation of the SFA.; Surgeon: 02/12/20 CREATION, BYPASS, ARTERIAL, FEMORAL TO POPLITEAL, LEFT; left heeldebridement with wound vac placement; Surgeon: Dr. Sanford The right heal had osteo in it and she was discharged 02/16/20 with 6-weekcourse of IV meropenem (for the osteomyelitis) and home nursing care. [facility] on [facility]18[facility]2020 for poorly healing ulcers and poor compliancewith IV antibiotic regimen. Apparently the IV antibiotic regimen was prescribedfor 3 times a day and she was receiving only once daily. She also had struggleswith ADLs, ambulation and meal preparation. During her second hospital courseshe was continued on IV meropenem 3 times a day via right arm PICC and was beingconsidered for short-term rehabilitation placement. Unfortunately, there wereno facilities locally that would accept her. On day 3 of hospital admissionshe had become quite frustrated and signed out of the hospital AMA having PICCline removed as well as the wound VAC. She was started on high-dose oral Ciproand Flagyl for 2 weeks and was referred to the wound clinic locally. She is nowfollowing with Dr. Chavez once weekly and has nursing into her home everyWednesday, Wednesday, and Wednesday. She was last seen by SPRAY DRY OPERATOR (Karen Bar) in the cardiology office on 03/29/20 forroutine follow up.Hospital Course & Complications: Pt was admitted on 04/11/2020 for R groininfection with sepsis. Pt was started on Vanco/Zosyn/Fluconazole. Wound andblood cultures were ordered. 04/11 CTA aorta with bilateral runoff was performedrepealing patent RLE bypass and no R groin abscesses. Pt's wounds continued toimprove with antibiotics and antifungal powder to R groin. Her WBC normalized.Pt's R groin wound culture grew staph aureus and beta hemolytic group A strep.On 04/14 Vanco/Zosyn stopped and Pt switched to Unasyn.04/15 D/w attending and Pt stable for d/c.Pt denies fevers, chills, nightsweats, CP, pressure tightness heaviness discomfort, SOB, cough and abdominalpain. Pt is eating well, ambulatory, had a BM earlier today, is voidingadaquetely and pain is controlled. D/c instructions were discussed. Follow upwith Dr Sanford 04/24 at 1:15pm. Pt already has pain medications prescr ibed. Ptwill continue taking ASA 325 and Plavix 75. She will continue antifungal powderto the R groin daily and Aquacel QOD to the left heel and follow up with woundcare. Pt will be dischanged with Augmentin 875-125 mg po bid x2 additional daysfor a 7 day abx course. Pt understands wound care instructions, they areagreeable to d/c and have no further questions.Past Medical History:Past Medical History:Diagnosis Date Arthritis Chronic GERD controlled on PPI Claudication of both lower extremities claims she has never had official testing or deeper evaluation into this as of12/27/2015 COPD (chronic obstructive pulmonary disease) Coronary artery bypass graft 12/2015 Quintuple coronary bypass; KULKARNI to LAD, triple sequential graft to diagonal,OM1 and OM2 and single saphenous vein graft to distal RCA Diabetic neuropathy DM2 (diabetes mellitus, type 2) >= 20 yr Echocardiogram 2016 Ejection Fraction is 50 %. Apical anterior wall hypokinesis. Aoritc rootsclerosis/calcification with a round calcified nodule in the aortic wall ofunceratin etiology Echocardiogram 07/05/2019 Normal LV size with borderline LVH and overall mildly reduced left ventricularsystolic function. There is akinesis of apical segment, distal septal anddistal anterior wall. Overall estimated LVEF 45 to 50%. Grade 1 diastolicdysfunction. No significant valvular disease. Likely normal central venouspressure. Unable to estimate pulmonary artery pressure Heavy cigarette smoker (20-39 per day) since 18 yo HLD (hyperlipidemia) Hx of Diabetic coma 2016 unresponsive for while - ended up even having PEG/trach for while Non-STEMI (non-ST elevated myocardial infarction) 2016Surgical Procedures:* No surgery found *Significant Diagnostic Studies:Imagin04/11 CTA aorta with b/l ROImpression. Severe atheromatous disease. Patent femoral distal bypass graft onthe right with atheromatous disease within the infra genicular vasculatureparticularly proximally. Dominant supply to the foot is the anterior tibialartery.Severe atheromatous disease within the left lower extremity including occlusionof the stented left superficial femoral artery. Apparent bypass mid femoralregion to the popliteal artery. The superficial femoral artery proximal to thebypass graft is diminutive in size with rather severe atheromatous disease.Patent infra genicular vasculature proximally. 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.Please see aboveUlceration adjacent to the calcaneus on the right posteriorly.Microbiology:Procedure Component Value Units Date/TimeWound culture [[id number]] Collected: 04/11/20 0050Order Status: Completed Specimen: Surgical Wound Updated: 04/14/20816 Specimen Description SURGICAL WOUND Special Requests NONE Gram Stain Result MANY (>25/LPF) WHITE BLOOD CELLSMODERATE (5 TO 10/OIF) GRAM POSITIVE COCCIRARE (<1/OIF) GRAM NEGATIVE RODS Culture Result -- MANY BETA HEMOLYTIC STREPTOCOCCI GROUP A ISOLATEDMANY STAPHYLOCOCCUS AUREUS(NOTE) PRELIMINARY CULTURE RESULT CALLED TO CAROLYN ON [facility] D4 AT 1147 ON04/12/20 84569. NOTE: BIOCHEMICAL IDENTIFICATION SYSTEMS WERE SET UP ON SUSPECTCOLONIES TO R/O PATHOGENS. Report Status 04/14/2020 FINAL Organism BETA HEMOLYTIC STREPTOCOCCI GROUP A ISOLATED Organism STAPHYLOCOCCUS AUREUSCulture & Susceptibility Beta hemolytic streptococci group a isolated Staphylococcus aureus SAIMA MICAmpicillin <=0.25 Nrkjousbq2Wcqjqwqwnek 0.25 SensitiveCeftriaxone <=0.12 SensitiveClindamycin <=0.25 Sensitive 0.25 Nmwhpuvnn0Qtfypjqcei 0.5 SensitiveErythromycin <=0.12 Sensitive <=0.25 SensitiveLevofloxacin 0.5 SensitiveLinezolid 2 SensitiveMoxifloxacin 0.25 SensitiveOxacillin <=0.25 Wysiutgwx2Ilg G (AMP, AMOX) <=0.06 Tvjcxycup4Kbommnhhmavo 0.5 Sensitive5 <=1 Kejmmcmri4Woqeturrpite + Sulfamethoxazole <=.5/9.5 SensitiveVancomycin <=0.12 Sensitive <=0.5 Sensitive1 ISOLATES SUSCEPTIBLE TO AMPICILLIN ARE ALSOSUSCEPTIBLE TO AMOXICILLIN.2 THIS ISOLATE WAS TESTED FOR INDUCIBLECLINDAMYCIN RESISTANCE. 3 OXACILLIN PREDICTS RESULTS FORPENICILLINASE RESISTANT PENICILLINS,BETA LACTAM/BETALACTAMASE INHIBITORCOMBINATIONS,CEPHALOSPORINS (WITH THEEXCEPTION OF CEPHALOSPORINS WITHANTI MRSA ACTIVITY), ANDCARBAPENEMS PER CLSI STANDARDS.4 SUSCEPTIBILITY TO PENICILLIN PREDICTSSUSCEPTIBILITY TO AMPICILLIN,AMPICILLIN/SULBACTAM, AMOXICILLIN,AMOXICILLIN/CLAVULANATE, CEFAZOLIN,AND CEFTRIAXONE.5 ISOLATES SUSCEPTIBLE TO TETRACYCLINE AREALSO SUSCEPTIBLE TO DOXYCYCLINE ANDMINOCYCLINE.Susceptibility CommentsBeta hemolytic streptococci group a isolatedMANY BETA HEMOLYTIC STREPTOCOCCI GROUP A ISOLATEDStaphylococcus aureusMANY STAPHYLOCOCCUS AUREUSMRSA nasal screen by PCR [[id number]] Collected: 04/11/20 0050Order Status: Completed Specimen: Nares Updated: 04/11/20 1105 SPECIMEN DESCRIPTION NARES 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 BY PCR Comment SEE NOTES Comment: RESULT(S) CALLED TO AND [facility] BACK [facility]LE [facility] AND EMAILED TO [facility] IC AT 1104 ON [id number] SI [id number].Narrative: NARES/GROIN/UMBILICAL FOR NICU PATIENTS ONLY [facility] COLLECTION MGR LOCKBlood Culture Peripheral x 1 Set (2 bottles aerobic and anaerobic) [[id number]]Collected: 04/11/20 0046Order Status: Completed Specimen: Peripheral Updated: 04/13/20 1153 Specimen Description PERIPHERAL 2 Special Requests NONE Culture Result NO GROWTH 2 DAYS Report Status PENDINGBlood Culture Peripheral x 1 Set (2 bottles aerobic and anaerobic) [[id number]]Collected: 04/11/20 0041Order Status: Completed Specimen: Peripheral Updated: 04/13/20 1153 Specimen Description PERIPHERAL 1 Special Requests NONE Culture Result NO GROWTH 2 DAYS Report Status PENDINGLabs:BMP:Lab ResultsComponent Value Date NA 145 04/14/2020 K 4.2 04/14/2020 CL 105 04/14/2020 CO2 29 04/14/2020 ANIONGAP 11 04/14/2020 CALCIUM 8.8 04/14/2020 GLU 39 (LL) 04/14/2020 BUN 17 04/14/2020 CREATININE 0.69 04/14/2020 GFRAA >60 04/14/2020 GFRNONAA >60 04/14/2020CBC without Diff:Lab ResultsComponent Value Date WBC 8.0 04/15/2020 RBC 4.62 04/15/2020 HGB 12.8 04/15/2020 HCT 38.4 04/15/2020 MCV 83.1 04/15/2020 MCH 27.7 04/15/2020 MCHC 33.4 04/15/2020 RDW 14.4 04/15/2020 PLT 243 04/15/2020 MPV 9.3 04/15/2020Treatments: See above Hospital Course & Complications.Discharge Exam:Most Recent Vital SignsTemp: [97.8 F-98.6 F] 97.9 FHeart Rate: [65-74] 71Resp: [18-20] 18BP: (110-170)/(55-81) 170/81Physical Exam:General: WDWN 54 years White or female, reclined in bed, awake/alertcomfortable in NAD.Head: NC/AT, without obvious deformity.Heart: regularLungs: coarse lung sounds and hoarse voice. No wheezing, rales or rhonchi.Abdomen: Soft, NT, ND, positive BS.Genitalia: No catheter present.Groins: R groin with few shallow ulcerations. Minimal erythema. No activedrainage or odor appreciated.Extremities: L heel site with trace yellow sough. No necrosis, bleeding ordrainage. Aquacel applied. B/l feet warm. Motor/sensation intact. No edema.Neuro: AAOx3, answers qustions appropriately, project facilitator strength equal b/l. No grossneurological deficits.Items needing special attention:- Follow up with Dr Sanford 04/24 at 1:15pm- Continue ASA/Plavix- Augmentin x2 days. Aquacel QOD to L heel and antifungal powder daily to Rgroin.- Follow up with wound care.- Follow up with PCP within 2 weeksDischarged Condition:goodDisposition: Home or Self CareSignature: GLENIS Shepherd- CDate: April 15, 2020Time: 10:21 AM Name Value Range Interpretation Code Description Data Tisha rce(s) Supporting Document(s) ID Date Data Source [id number] 04/15/2020 05:35:00 PM EST [facility] ([facility]) Name Value Range Interpretation Code Description Data Tisha rce(s) Supporting Document(s) Laboratory test finding (navigational concept) 113 mg/dL 70-99 [facility] ([facility]) PERFORMED BY [facility] CLINICAL STAFF ID Date Data Source [id number] 04/15/2020 04:09:00 PM EST [facility] ([facility]) Name Value Range Interpretation Code Description Data Tisha rce(s) Supporting Document(s) Sodium [Moles/volume] in Serum or Plasma 144 mmol/L 136-145 [facility] ([facility]) Potassium [Moles/volume] in Serum or Plasma 4.2 mmol/L 3.6-5.2 [facility] ([facility]) Chloride [Moles/volume] in Serum or Plasma 107 mmol/L 100-108 [facility] ([facility]) Urea nitrogen [Mass/volume] in Serum or Plasma 19 mg/dL 7-24 [facility] Anion gap in Serum or Plasma 8 mmol/L 7-16 [facility] ([facility]) Carbon dioxide, total [Moles/volume] in Serum or Plasma 29 mmol/L 22 -31 [facility] ([facility]) Creatinine [Mass/volume] in Serum or Plasma 0.96 mg/dL 0.60-1.00 [facility] ([facility]) Glucose [Mass/volume] in Serum or Plasma 246 mg/dL 70-99 [facility] ([facility]) Urea nitrogen/Creatinine [Mass Ratio] in Serum or Plasma 19.8 1 0.0-20.0 [facility] ([facility]) Calcium [Mass/volume] in Serum or Plasma 9.0 mg/dL 8.4-10.2 [facility] ([facility]) Glomerular filtration rate/1.73 sq M pre dicted among blacks [Volume Rate/Area] in Serum or Plasma by Creatinine-based formula (MDRD) Laboratory test result [facility] Glomerular filtration rate/1.73 sq M pre dicted among non-blacks [Volume Rate/Area] in Serum or Plasma by Creatinine-based formula (MDRD) Laboratory test result [facility]) Glomerular filtration rate/1.73 sq M pre dicted among non-blacks [Volume Rate/Area] in Serum or Plasma by Creatinine-based formula (MDRD) Laboratory test result [facility] ([facility]) -- NORMAL KIDNEY FUNCTION OR MILD DISEASE - GFR >OR= 60 CHRONIC KIDNEY DISEASE - GFR 15 - 59 RENAL FAILURE - GFR <15 Est. GFR calculation based on the MDRD study equation, which assumes a steady state for creatinine. Est. GFR should not be used for medication dosing. ID Date Data Source [id number] 04/15/2020 03:17:00 PM EST [facility] ([facility]) Name Value Range Interpretation Code Description Data Tisha rce(s) Supporting Document(s) Leukocytes [#/volume] in Blood by Automated count 8.0 10*3/uL 4.1-11. 0 [facility] Hemoglobin [Mass/volume] in Blood 12.8 g/dL 12.0-16.0 [facility] ([facility]) Erythrocytes [#/volume] in Blood by Automated count 4.62 10*6/uL 4.00 -5.40 [facility] ([facility]) Hematocrit [Volume Fraction] of Blood by Automated count 38.4 % 3 6.0-47.0 [facility] ([facility]) Erythrocyte mean corpuscular hemoglobin [Entitic mass] by Automated count 27.7 pg 27.0-32.0 [facility] ([facility]) Erythrocyte mean corpuscular volume [Entitic volume] by Auto mated count 83.1 fL 80.0-95.0 [facility] Platelets [#/volume] in Blood by Automated count 243 10*3/uL 150-450 [facility] ([facility]) Erythrocyte distribution width [Ratio] by Automated count 14.4 % 10.5-14.5 [facility] ([facility]) Platelet mean volume [Entitic volume] in Blood by Javy 9.3 fL 7.1-10.7 [facility] ([facility]) Erythrocyte mean corpuscular hemoglobin concentration [Mass/volume] by Automated count 33.4 g/dL 32.0-36.0 [facility] ([facility]) ID Date Data Source [id number] 04/15/2020 12:35:56 PM EST [facility] Name Value Range Interpretation Code Description Data Tisha rce(s) Supporting Document(s) POC NOVA GLU 113 mg/dL (70-99) H [facility] [place] [facility] BY [facility] CLINICAL STAFF ID Date Data Source [id number] 04/15/2020 08:43:54 AM EST [facility] Name Value Range Interpretation Code Description Data Tisha rce(s) Supporting Document(s) POC NOVA GLU 215 mg/dL (70-99) [facility] [place] [facility] STAFF ID Date Data Source [id number] 04/15/2020 11:10:00 AM EST [facility] Name Value Range Interpretation Code Description Data Tisha rce(s) Supporting Document(s) SODIUM 144 mmol/L (136-145) [facility] POTASSIUM 4.2 mmol/L (3.6-5.2) [facility] CHLORIDE 107 mmol/L (100-108) [facility] CO2 29 mmol/L (22-31) [facility] ANION GAP 8 mmol/L (7-16) [facility] UREA NITROGEN 19 mg/dL (7-24) [facility] CREATININE 0.96 mg/dL (0.60-1.00) [facility] BUN/CREAT RATIO 19.8 RATIO (10.0-20.0) [facility] GLUCOSE 246 mg/dL (70-99) H [facility] CALCIUM 9.0 mg/dL (8.4-10.2) [facility] GFR >60 ml/min/1.73m2 (>59) [facility] GFR ( AMER) >60 ml/min/1.73m2 (>59) [facility] GFR INTERPRETATION [facility] --NORMAL KIDNEY FUNCTION OR MILD DISEASE - GFR >OR= 60CHRONIC KIDNEY DISEASE - GFR 15 - 59RENAL FAILURE - GFR <15 Est. GFR calculation based on the MDRDstudy equation, which assumes a steadystate for creatinine. Est. GFR should notbe used for medication dosing. ID Date Data Source [id number] 04/15/2020 10:18:04 AM EST [facility] Name Value Range Interpretation Code Description Data Tisha rce(s) Supporting Document(s) WBC 8.0 10*3/uL (4.1-11.0) [facility] [place] RBC 4.62 10*6/uL (4.00-5.40) [facility] HGB 12.8 g/dL (12.0-16.0) [facility] HCT 38.4 % (36.0-47.0) [facility] MCV 83.1 fL (80.0-95.0) [facility] MCH 27.7 pg (27.0-32.0) [facility] MCHC 33.4 g/dL (32.0-36.0) [facility] RDW 14.4 % (10.5-14.5) [facility] PLT 243 10*3/uL (150-450) [facility] MPV 9.3 fL (7.1-10.7) [facility] ID Date Data Source [id number] 04/15/2020 06:25:02 AM EST [facility] Name Value Range Interpretation Code Description Data Tisha rce(s) Supporting Document(s) POC NOVA GLU 268 mg/dL (70-99) [facility] [place] [facility] STAFF ID Date Data Source [id number] 04/15/2020 06:24:57 AM EST [facility] Name Value Range Interpretation Code Description Data Tisha rce(s) Supporting Document(s) POC NOVA GLU 208 mg/dL (70-99) [facility] [place] [facility] STAFF ID Date Data Source [id number] 04/14/2020 08:35:16 PM EST [facility] Name Value Range Interpretation Code Description Data Tisha rce(s) Supporting Document(s) POC NOVA GLU 153 mg/dL (70-99) [facility] [place] [facility] STAFF ID Date Data Source [id number] 04/14/2020 07:06:43 PM EST [facility] Name Value Range Interpretation Code Description Data Tisha rce(s) Supporting Document(s) POC NOVA GLU 92 mg/dL (70-99) [facility] [place] [facility] STAFF ID Date Data Source [id number] 04/14/2020 01:18:00 PM EST [facility] ([facility]) Name Value Range Interpretation Code Description Data Tisha rce(s) Supporting Document(s) Special Requests Laboratory test result [facility] ([facility]) Specimen Description Laboratory test result [facility] ([facility]) Laboratory test finding (navigational concept) Laboratory test result [facility] ([facility]) Many Beta Hemolytic Streptococci Group A Isolatedmany Staphylococcus Aureus(Note) Preliminary Culture Result Called To Carolyn On [facility] D4 AT 1147 On 04/12/20 [id number]. Note: Biochemical Identification Systems Were Set Up On Suspect Colonies To R/O Pathogens. Report Status Laboratory test result [facility] ([facility]) Microscopic observation [Identifier] in Unspecified sp ecimen by Gram stain Laboratory test result [facility]) Many (>25/LPF) White Blood Cellsmoderate (5 To 10/Oif) Gram Positive Coccirare (<1/Oif) Gram Negative Rods Organism Laboratory test result [facility] ([facility]) Organism Laboratory test result [facility] ([facility]) ID Date Data Source [id number] 04/14/2020 12:57:12 PM EST [facility] Name Value Range Interpretation Code Description Data Tisha rce(s) Supporting Document(s) POC NOVA GLU 245 mg/dL (70-99) [facility] [place] [facility] STAFF ID Date Data Source [id number] 04/14/2020 10:34:08 AM EST [facility] Name Value Range Interpretation Code Description Data Tisha rce(s) Supporting Document(s) POC NOVA GLU 216 mg/dL (70-99) [facility] [place] [facility] STAFF ID Date Data Source [id number] 04/14/2020 10:05:33 AM EST [facility] Name Value Range Interpretation Code Description Data Tisha rce(s) Supporting Document(s) POC NOVA GLU 146 mg/dL (70-99) [facility] [place] [facility] STAFF ID Date Data Source [id number] 04/14/2020 09:41:10 AM EST [facility] Name Value Range Interpretation Code Description Data Tisha rce(s) Supporting Document(s) POC NOVA GLU 119 mg/dL (70-99) [facility] [place] [facility] STAFF ID Date Data Source [id number] 04/14/2020 08:44:06 AM EST [facility] Name Value Range Interpretation Code Description Data Tisha rce(s) Supporting Document(s) POC NOVA GLU 42 mg/dL (70-99) LL [facility] [place] [facility] STA[facility] ID Date Data Source [id number] 04/14/2020 09:37:31 AM EST [facility] Name Value Range Interpretation Code Description Data Tisha rce(s) Supporting Document(s) SODIUM 145 mmol/L (136-145) [facility] POTASSIUM 4.2 mmol/L (3.6-5.2) [facility] CHLORIDE 105 mmol/L (100-108) [facility] CO2 29 mmol/L (22-31) [facility] ANION GAP 11 mmol/L (7-16) [facility] UREA NITROGEN 17 mg/dL (7-24) [facility] CREATININE 0.69 mg/dL (0.60-1.00) [facility] BUN/CREAT RATIO 24.6 RATIO (10.0-20.0) H [facility] GLUCOSE 39 mg/dL (70-99) LL [facility] ALERTED CRITICAL RESULT LIOR([id number] )[place]4 [place] [address] ON [id number] AT [address]908 [place] [address] CALCIUM 8.8 mg/dL (8.4-10.2) [facility] GFR >60 ml/min/1.73m2 (>59) [facility] GFR ( AMER) >60 ml/min/1.73m2 (>59) [facility] GFR INTERPRETATION [facility] --NORMAL KIDNEY FUNCTION OR MILD DISEASE - GFR >OR= 60CHRONIC KIDNEY DISEASE - GFR 15 - 59RENAL FAILURE - GFR <15 Est. GFR calculation based on the MDRDstudy equation, which assumes a steadystate for creatinine. Est. GFR should notbe used for medication dosing. ID Date Data Source [id number] 04/14/2020 07:54:48 AM EST [facility] Name Value Range Interpretation Code Description Data Tisha rce(s) Supporting Document(s) WBC 10.6 10*3/uL (4.1-11.0) [facility] RBC 4.89 10*6/uL (4.00-5.40) [facility] HGB 13.2 g/dL (12.0-16.0) [facility] HCT 40.2 % (36.0-47.0) [facility] MCV 82.4 fL (80.0-95.0) [facility] MCH 26.9 pg (27.0-32.0) L [facility] MCHC 32.7 g/dL (32.0-36.0) [facility] RDW 14.5 % (10.5-14.5) [facility] PLT 264 10*3/uL (150-450) [facility] MPV 9.1 fL (7.1-10.7) [facility] ID Date Data Source [id number] 04/13/2020 06:28:21 PM EST [facility] Name Value Range Interpretation Code Description Data Tisha rce(s) Supporting Document(s) POC NOVA GLU 164 mg/dL (70-99) H [facility] [place] [facility] STAFF ID Date Data Source [id number] 04/13/2020 03:34:00 PM EST [facility] ([facility] Name Value Range Interpretation Code Description Data Tisha rce(s) Supporting Document(s) Vancomycin [Mass/volume] in Serum or Plasma --trough 14.9 ug/mL 10.0- 20.0 [facility] ([facility]) ID Date Data Source [id number] 04/13/2020 01:05:22 PM EST [facility] Name Value Range Interpretation Code Description Data Tisha rce(s) Supporting Document(s) POC NOVA GLU 120 mg/dL (70-99) H [facility] [place] [facility] STAFF ID Date Data Source [id number] 04/13/2020 09:06:17 AM EST [facility] Name Value Range Interpretation Code Description Data Tisha rce(s) Supporting Document(s) POC NOVA GLU 97 mg/dL (70-99) [facility] [place] [facility] STAFF ID Date Data Source [id number] 04/13/2020 10:34:51 AM EST [facility] Name Value Range Interpretation Code Description Data Tisha rce(s) Supporting Document(s) VANCOMYCIN TROUGH 14.9 ug/mL (10.0-20.0) [facility] ID Date Data Source [id number] 04/13/2020 10:34:51 AM EST [facility] Name Value Range Interpretation Code Description Data Tisha rce(s) Supporting Document(s) SODIUM 145 mmol/L (136-145) [facility] POTASSIUM 4.4 mmol/L (3.6-5.2) [facility] CHLORIDE 105 mmol/L (100-108) [facility] CO2 29 mmol/L (22-31) [facility] ANION GAP 11 mmol/L (7-16) [facility] UREA NITROGEN 15 mg/dL (7-24) [facility] CREATININE 0.68 mg/dL (0.60-1.00) [facility] BUN/CREAT RATIO 22.1 RATIO (10.0-20.0) H [facility] GLUCOSE 94 mg/dL (70-99) [facility] CALCIUM 8.9 mg/dL (8.4-10.2) [facility] GFR >60 ml/min/1.73m2 (>59) [facility] GFR ( AMER) >60 ml/min/1.73m2 (>59) [facility] GFR INTERPRETATION [facility] --NORMAL KIDNEY FUNCTION OR MILD DISEASE - GFR >OR= 60CHRONIC KIDNEY DISEASE - GFR 15 - 59RENAL FAILURE - GFR <15 Est. GFR calculation based on the MDRDstudy equation, which assumes a steadystate for creatinine. Est. GFR should notbe used for medication dosing. ID Date Data Source [id number] 04/13/2020 10:02:33 AM EST [facility] Name Value Range Interpretation Code Description Data Tisha rce(s) Supporting Document(s) WBC 8.1 10*3/uL (4.1-11.0) [facility] RBC 4.72 10*6/uL (4.00-5.40) [facility] HGB 12.8 g/dL (12.0-16.0) [facility] HCT 38.9 % (36.0-47.0) [facility] MCV 82.4 fL (80.0-95.0) [facility] MCH 27.1 pg (27.0-32.0) [facility] MCHC 32.9 g/dL (32.0-36.0) [facility] RDW 14.3 % (10.5-14.5) [facility] PLT 235 10*3/uL (150-450) [facility] MPV 9.0 fL (7.1-10.7) [facility] ID Date Data Source [id number] 04/12/2020 09:17:53 PM EST [facility] Name Value Range Interpretation Code Description Data Tisha rce(s) Supporting Document(s) POC NOVA GLU 218 mg/dL (70-99) H [facility] [place] [facility] STAFF ID Date Data Source [id number] 04/12/2020 08:29:50 PM EST [facility] Name Value Range Interpretation Code Description Data Tisha rce(s) Supporting Document(s) POC NOVA GLU 231 mg/dL (70-99) H [facility] [place] [facility] STAFF ID Date Data Source [id number] 04/12/2020 06:17:48 PM EST [facility] Name Value Range Interpretation Code Description Data Tisha rce(s) Supporting Document(s) POC NOVA GLU 264 mg/dL (70-99) H [facility] [place] [facility] STAFF ID Date Data Source [id number] 04/12/2020 02:41:17 PM EST [facility] Name Value Range Interpretation Code Description Data Tisha rce(s) Supporting Document(s) POC NOVA GLU 182 mg/dL (70-99) H [facility] [place] [facility] STAFF ID Date Data Source [id number] 04/12/2020 02:13:49 PM EST [facility] Name Value Range Interpretation Code Description Data Tisha rce(s) Supporting Document(s) POC NOVA GLU 148 mg/dL (70-99) H [facility] [place] [facility] STAFF ID Date Data Source [id number] 04/12/2020 01:54:14 PM EST [facility] Name Value Range Interpretation Code Description Data Tisha rce(s) Supporting Document(s) POC NOVA GLU 62 mg/dL (70-99) L [facility] [place] [facility] STAFF ID Date Data Source [id number] 04/12/2020 01:44:14 PM EST [facility] Name Value Range Interpretation Code Description Data Tisha rce(s) Supporting Document(s) POC NOVA GLU 43 mg/dL (70-99) LL [facility] [place] [facility] STA[facility] ID Date Data Source [id number] 04/12/2020 09:17:43 AM EST [facility] Name Value Range Interpretation Code Description Data Tisha rce(s) Supporting Document(s) POC NOVA GLU 101 mg/dL (70-99) H [facility] [place] [facility] STA[facility] ID Date Data Source [id number] 04/12/2020 07:42:40 AM EST [facility] Name Value Range Interpretation Code Description Data Tisha rce(s) Supporting Document(s) SODIUM 144 mmol/L (136-145) [facility] POTASSIUM 4.1 mmol/L (3.6-5.2) [facility] CHLORIDE 107 mmol/L (100-108) [facility] CO2 27 mmol/L (22-31) [facility] ANION GAP 10 mmol/L (7-16) [facility] UREA NITROGEN 18 mg/dL (7-24) [facility] CREATININE 0.80 mg/dL (0.60-1.00) [facility] BUN/CREAT RATIO 22.5 RATIO (10.0-20.0) H [facility] GLUCOSE 83 mg/dL (70-99) [facility] CALCIUM 8.9 mg/dL (8.4-10.2) [facility] GFR >60 ml/min/1.73m2 (>59) [facility] GFR ( AMER) >60 ml/min/1.73m2 (>59) [facility] GFR INTERPRETATION [facility] --NORMAL KIDNEY FUNCTION OR MILD DISEASE - GFR >OR= 60CHRONIC KIDNEY DISEASE - GFR 15 - 59RENAL FAILURE - GFR <15 Est. GFR calculation based on the MDRDstudy equation, which assumes a steadystate for creatinine. Est. GFR should notbe used for medication dosing. ID Date Data Source [id number] 04/12/2020 07:17:18 AM EST [facility] Name Value Range Interpretation Code Description Data Tisha rce(s) Supporting Document(s) WBC 12.1 10*3/uL (4.1-11.0) H [facility] RBC 4.62 10*6/uL (4.00-5.40) [facility] HGB 12.6 g/dL (12.0-16.0) [facility] HCT 38.0 % (36.0-47.0) [facility] MCV 82.2 fL (80.0-95.0) [facility] MCH 27.2 pg (27.0-32.0) [facility] MCHC 33.0 g/dL (32.0-36.0) [facility] RDW 14.4 % (10.5-14.5) [facility] PLT 231 10*3/uL (150-450) [facility] MPV 9.0 fL (7.1-10.7) [facility] ID Date Data Source [id number] 04/11/2020 08:57:00 PM EST [facility] ([facility]) Name Value Range Interpretation Code Description Data Tisha rce(s) Supporting Document(s) Vancomycin [Mass/volume] in Serum or Plasma 28.3 ug/mL [facility] ([facility]) THERAPEUTIC RANGE IS ONLY AVAILABLE FOR PEAK AND TROUGH SPECIMENS. RANDOM LEVEL RESULTS MUST BE INTERPRETED BY THE PHYSICIAN. ID Date Data Source [id number] 04/12/2020 08:27:39 AM EST [facility] Name Value Range Interpretation Code Description Data Tisha rce(s) Supporting Document(s) POC NOVA GLU 212 mg/dL (70-99) H [facility] [place] [facility] STAFF ID Date Data Source [id number] 04/11/2020 06:20:28 PM EST [facility] Name Value Range Interpretation Code Description Data Tisha rce(s) Supporting Document(s) POC NOVA GLU 251 mg/dL (70-99) H [facility] [place] [facility] STAFF ID Date Data Source [id number] 04/11/2020 04:05:00 PM EST [facility] ([facility] Name Value Range Interpretation Code Description Data Tisha rce(s) Supporting Document(s) MRSA by PCR Laboratory test result [facility] ([facility]) Specimen Description Laboratory test result [facility] ([facility]) Laboratory comment [Text] in Report Narrative Laboratory test result [facility] ([facility]) RESULT(S) CALLED TO AND READ BACK BY MILLY SUNSHINE [facility] D4 AND EMAILED TO [facility] IC AT 4691 OA [id number] EX [phone]. ID Date Data Source [id number] 04/11/2020 01:34:14 PM EST [address] [place], [place] [address]Rhqwdci Name: Tatianna Mcintosh: 1965Sex: FOrdering Provider: BRITTANI Shook Prov: BRITTANI Mclean Provider: Procedure Performed: CT ANGIOGRAM ABDOMINAL AORTA AND BILATERAL RUNOFFExam Date: 04/11/2020 09:11MRN: [id number] Number: [id number] Class: : CT angiogram of the abdominal aorta, pelvis, and bilateral lower extremities.Indication: Discoloration or erythema; Lower extremity; Bilateral; Prior surgery; Surgery date: 6+ months; Surgery type: Graft; Additional info: Josue abebe lymphangitis of groinTechnique: Imaging protocol: CT angiogram of the abdominal aorta, pelvis and bilateral lower extremities with IV iodinated contrast. 3D rendering (Not supervised by radiologist): MIP and/or 3D reconstructed images were created by the technologist. Radiation optimization: All CT scans at this facility use at least one of these dose optimization techniques: automated exposure control; mA and/or kV adjustment per patient size (includes targeted exams where dose is matched to clinical indication); or iterative reconstruction. Contrast material: ISOVUE 370; Contrast volume: 120 ml; Contrast route: INTRAVENOUS (IV)COMPARISON: CT ANGIOGRAM ABDOMINAL AORTA AND BILATERAL RUNOFF 02/05/2020 9:10 AMFindings: Regarding the vasculature, atheromatous disease within a rather diminutive sized abdominal aorta. No significant narrowing. Vascular calcifications within the right and left iliac arteries which are patent. Bilateral common iliac artery stents.Atheromatous disease within the celiac trunk. No significant narrowing at the origin of the celiac artery.Atheromatous disease within the proximal superior mesenteric artery maximal area of narrowing of approximately 40-50%.Right lower extremity: Common femoral artery unremarkable. Operative changes in the adjacent right groin. Prior stent within the [place] superficial femoral artery which is occluded. Femoral distal bypass graft which is patent. Anastomosis within the distal popliteal artery. Anterior tibial artery tibioperoneal trunk are patent. Posterior tibial artery occludes proximally. Anterior tibial artery and peroneal arteries are patent to the ankle with the anterior tibial artery crossing the ankle supplying the dorsalis pedis. Short segmental reconstitution of the posterior tibial artery.Left lower extremity: Atheromatous disease within the common femoral artery with narrowing of approximately 50-60%. Atheromatous disease throughout a diminutive size superficial femoral artery. Stent placement distally with occlusion. Apparent prior distal femoropopliteal artery bypass graft. Heavily calcified anterior tibial artery proximally. Posterior tibial artery and peroneal artery likely occluded. Dominant supply to the foot via the anterior tibial artery.Regarding the soft tissues: liver, spleen, adrenals, pancreas, kidneys, lung bases, osseous structures, small and large bowel are without an acute processMild nodularity of the liver is present. Correlate regarding risk factors for hepatocellular disease.Prominent spleen/splenomegalyNodularity of the adrenal glands particularly on the left measuring nearly 2 cm.2.8 cm right renal cystSplenic infarct involving renal infarct involving the anterior superior aspect of the kidney. Previously noted.Large amount of stool throughout the large bowel. Appendix normal. Impression.Operative changes in the right groin status post femoropopliteal bypass.Mild dependent atelectasis is present.Prior disarticulation of the 5th metatarsal distally.Ulceration the soft tissues about the calcaneus on the left. Probable osteomyelitis. Impression. Severe atheromatous disease. Patent femoral distal bypass graft on the right with atheromatous disease within the infra genicular vasculature particularly proximally. Dominant supply to the foot is the anterior tibial artery. Severe atheromatous disease within the left lower extremity including occlusion of the stented left superficial femoral artery. Apparent bypass mid femoral region to the popliteal artery. The superficial femoral artery proximal to the bypass graft is diminutive in size with rather severe atheromatous disease. Patent infra genicular vasculature proximally. 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.Please see aboveUlceration adjacent to the calcaneus on the right posteriorly.Report electronically signed by: TAYLOR RAMIREZ MD on 04/11/2020 13:34:14 Name Value Range Interpretation Code Description Data Tisha leavitt(s) Supporting Document(s) ID Date Data Source [id number] 04/11/2020 12:28:51 PM EST [facility] Name Value Range Interpretation Code Description Data Tisha leavitt(s) Supporting Document(s) POC NOVA GLU 182 mg/dL (70-99) H [facility] [place] [place] [facility]FORMED BY [facility] ID Date Data Source [id number] 04/11/2020 11:53:52 AM EST Lab [facility] Name Value Range Interpretation Code Description Data Tisha rce(s) Supporting Document(s) POC NOVA GLU 93 mg/dL (70-99) [facility] [place] [facility] BY [facility] ID Date Data Source [id number] 04/11/2020 11:40:21 AM EST [facility] [place] Name Value Range Interpretation Code Description Data Tisha rce(s) Supporting Document(s) POC NOVA GLU 57 mg/dL (70-99) L [facility] [place] [facility] BY [facility] ID Date Data Source [id number] 04/11/2020 11:24:52 AM EST [facility] [place] Name Value Range Interpretation Code Description Data Tisha rce(s) Supporting Document(s) POC NOVA GLU 48 mg/dL (70-99) LL [facility] [place] [facility] BY [facility] ID Date Data Source [id number] 04/11/2020 08:37:03 AM EST [facility] Name Value Range Interpretation Code Description Data Tisha rce(s) Supporting Document(s) EKG [facility] KCOCKa0rCmEWPxMut4NxXsIbSEBbBV8abif2D1S2vCPrO7XmwJMoq0imI8UuJ7LtUSQqZQRUZL4RyVOd jb2 [file] vp outcomes+jmQCJmW02AZ4iWjb76sHvg1MGooo1FtGVAfBHvfpXfBsF7mcZYPK6+UG0Yn07UiRb1wfwxPH08crl [file] k5o6s8YhWGEWIWJAwXcv0N/Nf8IKZEUozPNPOCDtyV fF0wQ88AQsDYUmaLYr7Ton4eGyKSw2wJ0StwcRzuFfLRfDGRf7Rij/FqyMuDsZ0Qws3wYGnW5R0nl88a yIYDdj2ndO/REHAB CONSULTANT/ihuuv2u3Mekz2cnSurGcnUvxpjwGy1l5WH1Y9pak00zqVB6nRA7nkeUaWjYmxl9Rq [file] paula+oJe0az0Ic/hI1ggYzevHE/2j8OKLSZDfkwSFye3Yq50ugJvnyx8SD3zMIItjBG+dR/pjudkMFKUM lDLA/fly finisher/jytHc8Eik0LP6sbRRqeRKLJpkvl79goFSXDUvXCgWgehXhM8QtoS6LJvz1bspGlXFk6M7hJ J7GnNF4E98LiKqej/tNixYG5tEKkHz/pj+VGNrlxLh sK8EApYXhdO1RxofzfrZNRMP2yWcSnW+VdXO0HI6RoYExJFKTNLoyE/cvpQeW9YqdE077L646t/LHcfc PijvcScpp4yJxevqtxHGXoLigrgz4fL5x1Y0Yli99Qk0E+YNSn8UNX7U5pe/kQ9Dsmk4Yqf/vkhGww69 WD/lhG+bK1PKjHvm1EJqiPkyLRhIA6H1vSCkq+wUh/ TWGbQx9ugfKAqHk6tXc3dwyVWkGlz1l4R/9e6XzfXIEQIIVxOuAwoqqhph9U8YTUMboTW/2xJDfYxRnp j+BOXqy7dN0Y9FRW9K/c7sQAg8TSHJUO6ClPLIWyK3E/idihyZIZcMgXLRJsofe0NZ2AAxKkXGQBZ6uj NuzijPDHkoAp/eR9TH1v8XxJXekBdr0t/ZL76zpH9r h5GTB9rFGbQcdqnHmkDy8Y2Bqf5q2lAevYFVGGG/yxpNIi/THLtPLZY4OuMX1LElqL+/HMzi1/w3Ep3x vHvXX1XOKrfSdf4mXW7c1kRAwB6WkXi8Ypi9DvoXnKWdrabzOd69wKiNr7SnPBU4jWE/+sGVr9UdeAUS H0bkCmz/5YxoDfvpH+WPJfEGDlgffOI/yxVATjQDgO rFHM7vPE+UOBgHw7luDpQ6N/cYQ/ekdPBAmhCSvB19TP/cQR/pthBapWLYBZYN0s0C/lUQYpkxScmUbY Jly8kuWSet9oYafQqgaZApjfJPcoFhkZGgkvPDoQG0L+4gh/CCGVI0YFxATNqgU3Z1w7C8uw36BprwCZ bkKRQCARkjPLw6JGeni/I/yx5JE0/UNpbcxlaU4RoX RwC/uJNzJIwdk5/BV7quO0pLfEzpDRnW77ey/Ux2bVUldXviYjAZ7aIIoY7zaQWd7c+EUzwMV8675Epx cjLXhGoBhYuPuWqLmVONrkB2WQxI0mjRWPQLmb9ASkKOYAiWzNeeaUOC8pfdGSWyoyGfgEA8AWonV/hD +AQ7S2DI6uJlCipnQ93aZh6bPI536i6c1okGjxYFru eRlC243c/cPjOq2qODRhYLd1K5cvcHgxEfCEb/rESX1i+vN38XlTNFykBJ+uqIVTVhGaCwI3LEpMbo9X nRNmW7u/LLEH0x/ZZV1yIVR2hWUEWaAn5+rZ8ZxWymDjzE4IP4nJVffwQwubG4qYJJOjb5KDdZwODoF4 c3UXrbNyLasTGSyAJZGhBZTZElxse+Vm4ziA/fly finisher/l spQJdO63H1An0x5WuZGHjT2hvLYmFqYH6AQGtGzpGPnuz3huwwCHGG5Z1ofDjIiqjkV8oZW8B/lptNWI +YavmARkrXQCOY6IOWUBcinN3otknieq5azP8YjnPjJDRdEohnyPTXjhqUXZWoOV+E40AoA+C0EVPQnk IkTgx/LAkWwh/LXW4F+RT4xchYMjIThaoW3wYXY837 lNEYweq/xQ9ZN5G/fiyZGMgjfiJfSuIiv3x55rij4dxJsnwIY/8eCEljA5yk/jKMR9R6QFg/CL3niR6m Gpi2oIuURnjTQtjboEYrTKWq3p8+oW5TInDh6S1Jen3MgnU94WEC3qb1Q8hE9zItp/hL2AnWu35Qp4q+ JNML5CpchxOEHJ+Y/lheBP/b1s7Udzhzqq1JcHj1bq YoN5W4Gk65trhS5IUXg7CB7hd97ohlM0hkZ2BAYSwH55XM436O852dWNZv8Qi62qysaD0EBL8wO1Ma1R n16El6lfdGOZInBvUyGyLwK1VuM1GBR3jMtuECEzFc/bHEIA9/OSnFAdgo6L9Q7DuAK/YmdwXRWEg9W7 lrCuGPJY//4I4shMDS6YrDDzt7i4EeaOcpnTlhskhv w/5acK8Q0v7TyrOQ40iYmcuR+9SF9lDvmrjM8YAWkfekekAvwaJ6Xdt3W5pjNNbyBMv4E2emx/gdjGyO 73QBSkDsRCqEe3aFWO629e10o2ZauZhG/flkh3jgwwzIC0lsDC8q0Y4py+PcUT4WkiXDlnqTCVFcP43n BXUdyh2is9tkVoMAEx0UVjTVCp1PQigloqLYFhUuyB J8mLUWV+yK3fEE7vJMAJDavq0/YTuMiD4J/jrvg0qnRvZHNYZhzk5/LI+rLVAXgbO231uQazpbtYG0KJ nW9W4VINStejR+DMcvtLLHHfLQ7B/qQCuHHQ6VJjZXumye/ID3DuzavL6Q+0xJeYqZshGploJmi0zMZz EHD4gnSFUWQ1kHYkSIi2UwLUakq6VGwXO/BV4TMqT8 g/THsjMC/LH9A3yuHjwjV1yvfiQUKaCBwfsGuP9DBqsuCTAYHbVtDfxzJnrDz1LMNsrPLDWtvY2SKlyH JnWzhYIRiT3ijeDra8TUAxrqXAYIWf5vP8z/GEeXwjvYQBK8hSMKdydeti8Htq8gZZQYkub17B/lLuu6 RHNI4c8Copwr/WQukXS9kHr6K1lQffUSDAvXpIdSI6 tJOLC3upLhvau/DRHfAKToBbM0arChqdk/RW5jkvFqjjGcsQb3GmY0XukjyYbMioXdR/kePyPK8OxWMc k4N6Y/xheRwBVr3AM6gAXDkLTW/O68+L012psuHx7OsflCwHvam+zUpYndjuJCU0dPqRQjG3So0TQ+WL An9TfVEZOktAyMXXNIaqqzX05exV23OHxGdz/LK3NY xkgBRgp/LDnrwx/GkcG1CeC3hIuhN5DI82Htb/DITFKN5BHErRmJGKAaE1XKJEQkps+WipBCGXTcSwt/ WFdp3HtVVLjpbp5x0XnU+SG9VxHWMMAD9FpW00A1V0v0QtkuSDITNAc6pUhzg4XuRTMBMPgAfD+4g3H9 sdyIvCNc+fP5wJdSjU+KHBaP21YK01KG/PgL5Nqyp2 THjNjd6KromeGH7kEnpmEaxyU/1iK4uu3mp+A2L0m3kd6YLnVGgfvB4L6kHiklb+VKZ+QxGrwvhZm9l0 7dwE5X1hWN4mLQF2yuvBtBlRFpwAHQLVtUWqNE6UajswQUgSJFcKFD2v1T7p1Qdnk7EwglzntjSukWhG 3WxhLeVwkD3n/FMcxgQznsc8ZgVsQ1GAnk+jY7ZHE5 DTuSj4maW+RY3FCCfKKiIfY+Qz3tHEa9foG67pcNI2tuAVt/LPnsKfyxpNIi/MPbd6trwhL+Ekb9E0ry QPhjGScr/QSAWxr4BcySrbmoEMuib/0b0Pfu4d1lyOOZ12zwF2i3E3lwiAT/MPpRIoksjbzh4G8pz0BR T3sFVeNmAN+1jiF1ld5WYc7NF8c7bQE7vaclcViDVr Ply2KGZ5YtH0u+1m0ULprGZ5PyqtYahWIJcn/Ou10hwM24tGdFv+XJLio7ukwqm9BgYBZIjhpI+GN5ZY oI7KwrsM+HBlhpuRL2AcdcT8InMuWjcSqyVbU5tohPuWgpx+KRsFhDHqc1XOPWFjIhjX+Fx67dNAMcqp IcLdYUfRjThKR2W9dX4L0nJPH/lhfppOD+QfpjeRFS JinAB+HJ1JN84VEdYSN4WdeqFIBy3z7Zj/3rf/37H3/L4ted/v1///kf/6f/z3/+/f/++d///penr/Er 9d//5yzjk3Jibs3GoviUq/SzOdEhmnlhbWb3gNXtkPnUh6WbZRYy4tjSLoKsGxlULjPHn83KI8J73lyL QEvX5P5Ab9IwaGqs/7hII2w2I9PI7la2uQ15v3LcdZ T0d6C/YyG/IL8g/0b+ealg61KfSwa/Gfb+xruG8p7RvVD//71yJSu2/kqMtp2F4LgBK/z1d4pF+Je+pv /zMjB3jWOWp+k7xs+VOT143YBx+omi5aCOU3c8SN184U8gd7xG/QTh4V/6D696+Kpl0oBU7v27+4MOka 5feusR/vicCH/3TLbbmE5O7VQSXls5NB/6mzqa6E+4 BLFsnE8MVJ2ZzTfxi/D/rlH/+5oNYaQvpC+sW31fSHEzby+/Wdeu+zMnocorlIf8nY/sfZqJsKzA3yAd fklvCBf/D+dpXkfN76Tj8f/wWci/1GY0V0aZAx7X4Z5xCPQ1EZlM2s/tz6qH0PcheeI+8f/d6qSqKbnc fSD/346pTrlLJtf9flMLW1tGp+21nTLwp0SlyDb1OK IP0rE+f5N61ek1zDi353A1OsoPf83q+EvXCHt/bxj5J/JPpC/kX0j3/p4Mf+c7zCZBdt86cp+Zx/ubdt K//cdr75O1/gsbM4ub/I9/tfBwpX+E1unnieYtx7G2He533TPu/m4Hb8aiey/Sv/4Xv8v6M45A7jOqkW esfyY0r+DA40koiz51o8Jt+1DaL0+kK/B6uhJKMK1r V8f7G+Ac6LnlVs03/V7jNa769bqMoc/Vckfz80a75cc/aQ7O+6sZ/hTpXvHkq0U//b1h72+AEVrpQ91G rGTFpv3X//CKsUj6ov5b66tzG8Rof9f/8kizTzj80/hTkZfu/2++t+5Sefz/oOM07D8AxoZP8uo++xuR HAP+PIQXiS9ZcXy9/x1Rdr//3Z+UjLJsu3paPY+8+d OQl+7/99ysdayPUF58K96EAv7u/yg+of8mMjtMfZiEi/brDZS4r7q72fbmF067dEBL/jq+alrE9Lzctz Uq01fxEd9r+h8H/l/HV/C0VyRX2ORy02sVx3s+9qPCb/z7y4+XX5C+V7Sml60a+KOPHP/+0qG45uBNtk 76i4/WQY6v2hqp2+kOs25ochaYI2kpvqAhWq5jXg0n Au00aeb/wWeBv8/uqJ054Grevi/3re4PGilLM07sQA1uJXP/+Mo/LN4L64m1610GRQqJcmL3wP+Wdx4a llWz7GBvDg/G6oWD3s/+fkDjC3/0xgrU9mC89cw3XbFJZ2qDL4cUx9qwpXrJgn45H9MxGp2D+J4uT5rL HYmvv/t+Vhwd1frKuu3k0Kzlt7fc/9CFD3UZ/vV3z6 uM/jBzami/9PjvHF/hZLF8um6mtYCn7ZidPv+p4yuN/2TknJ9RH5O//s36P491oDTNE/sET++vXV3AP/ 8q9wJgpp3xPvqlW/+B73uYfyM8qdJ1gn2z4XiQdEc0g/TFxv0tJtaN1xKFZ6Zy+f0kM0dut/5K4/5Hjq 03yYCOUq2r/6/vu24Bu0xw5CyH/KpokhOdeMS90iNk itdGfd9r8rlM8JiwF4+x3jq+ekN7WBe56/ilylY49avw6+n4Kvvl+Mr9LkFISF3aZ06dM/x9/sVmn8EK O4fz90lmf/EA5cy7cSM5mpdrJ6Oq+Lvh8lge02cP+Hh/m72dt3OO6ucem7NL155nyFGvLj647wc7/jo2 85cXvzZnuNIdXyV/f6n3ffkLm5N8C6jJt+OrE+PE8Z Vlnl9/ktKY1x68AvZog4xGEzi3+EpG8hc/50YbvvOvtMj/nX9T5h++kpy/D53Kswoy+Tfl8+DreE8jt4 fSM8/XV3j47KMO+leveskmyyMlHfumz8NSAmUBKbfK/X1Fjmd/LrBW9pod/wetyL6b/PjTipxr/rLi1S Xvf/R3Ffl/+bOK/B/4JjEyc4hgVn6f0VYQsswB/p7i lu3ob6/q1U2sadqEQ0yACdDpFn7Kk70xDS1ooEu/HGYc3z2U3Nxntzju/zilJC1R+ttr/bs2nCxUEP0i 0uK40qu/U5OILM3nIE8xyi5d0mn2Ogb8ztxc620Y/vzdwS9QMmWZgz24htes0A4zpHh5UIbnsXeFXCxe v/fX9UL+VhY7XS3vuxnwh0Z68e4zT+AKNPn9wNfiK1 KYzxmoF2v9oeuX/gYY9sfgw3/zlxG5X/vDiNz7/H7KN9Ye1CakxJ/HVy/2edvv1P1ghhoOfiU+XmUeX6 +Cp+OrFy7+ph0vlm1qpI/HVy+RxtMsAuVOaY64Lh68pia1gx0/OybwqsXa5AC3gix6dd/fHV+ywHN9n6 y/q8tjdg9T8+kwL7wYVZe+Gl5v3ur/+vCrw/8Lx1fH 9ST+8OHx+fr7wp4/wuL5o+zX3xv++ns0w1+6Rfjrb+g5/dSAAe0pTpRn8B3Pk5w/XJW4lYs9+rujvxrh bihar2Cw6jev745Gsvvwm09d0n3dbUX/qtQusNVczdmx0P78ozszkjiy57sKI/3wl1NXkpreWh5+nmOt nNqY4X2mSp/PpK5uomW2Me+Lq6Suv1f4B8hx49efQe jv/L120SDGB2w5hsiuhtPCGCf3dO16xTM7x1xbQkU89vipc/x7KC9xT3O3ne8HKn7lMvjLn738HAt3xe i3WkYwUA53dunuTmoxag/nTI78vdb9hE1On4xbN0kKix4G/NHfg/5aq/uSp8MNoy333IApVWVx22clg+ xkag5wi1pzpuGX2qJ39xGJ/rr+Ezq6ujJULm+uv7rp GM+au1w0x7Usl/e2wGJo03dENdRzDoJ3/GHCS6//158lZH/9VUKue/9tKnjvr9g4hfV52GoBU2/NX3+P 0GZgn533y0RC47bnSzHa1s3/nsZN9lKLo3pU14i/E7aZ95X/ikKszj3RzYWnkuCuVWQp4dfHmprnK1+H V/0Bgl9G/ML+/LoGjjZOE4Hril2w/vpr/h/504NlIW fHV+b/ie00JILu/9dfk8j/9feGHT+vDBd/a3mCUmgRmrB1Xu/BE1fxyv9TEH5F6Og3DlJszVB2vp52cI XeXxrc/9yoEo3Zml/yfxzx/0ZYaxyOGs/+nhTZcGOtwQTMcQ4uJiIa7ZL6Bh2QJ7ulhe3xCbkWo+OrrH diPDu+unkm+KdspzHYNoH3kPtY2+tzhkO/IRFGurZq l1EFiFpgJk8vZad+3rBcPckKfBX/S+CrDPeqN/KXdm39bMCu3Vz+zwL7nmaDFsQa1Hvkg+CrDO+H3/z5 wGunlnwW+bjzfuucD93e4pMnBt8MwExJyk1kbt56Yp/F/gI9kmLOw04o5UE5gkRY/PwbY/XDV/lw769B /MpEnu/1W0qkpx2tlsiZ7Ja+9bcCsmMdEz//rsj/nX +PBv/v/Kii44LDpjbw/86/O9acD1/Jyj7ad+0Eqea6rp+1wndg7uTy//UHAonP/T0GS8DDkjU6+t7tjw UqyH8PB/RXmd//3+b532bol9j/6Pgq5R/4An98jOuXYk/yC3WzPl6Bb0LvQt0QylSq9LxEfuH00pbfh+ Crk+Kuk4NdLtqKEt1nt0A6//obcQnQ05Yst6Tn/gQg cam/WXkqzwcOoA2S19tAEY343Xm/v03uO1L5qv/+39CQ2BNzjHs4/O/X/l3rrikaAC/0//txzE5el79S +mBsSr3I/iaQo3vEEsvyF+V+8snqa9Lwq5sS/ffYO4/1lyV8GX551M35tAHpDf9YR6GkQ+xJXbMv7lEb Wy4kO17y1y+T2pcdX+XcdHx10+b75St1ElaC6UKTF1 airNX+7Res4bJ3+jPdr/RnG/xGf+7FfqH/C8uxqE8BzfInjK3JIq82Pu3zOwIa0xph/fPq8Mr0E9rYk/ j9EXr7hd4O7Yk9ZzcF3UkeStbc0V15LWExki++unk+lFMb6Bmj+QS+suVb4ei33kN3/hlV4kE466oKf+ tz8/Hp1/Z/zuerrR7WN3P04qCNLo26Ize7zd0Tq/tB dwM2Tf7NjlFC+NjCMx9P0Hc+NiqXcbu3E97W/yjwVfynga+yrP+/O/Kvh/o5tt9yE44vPqm4/fzH3//f DPv/GoM45M3eld2u98zd87bq6bSljMyJAOWeo/AAq3jtRgVy/mxiA3xp+JX8nFN+I//W6/jqhuv+lV/H z3XDb+LvCsSY5KZf+335TDJ1Xi3LBp+J/+pVtOcg/0 K5pWTGN+HfdMdXL/z2X7+Bf/t9ldc52pq+q/Q5fvv+5yEs4uM9qF3CS/1dpc/xe/sbt5u4Ta+Uk4G05j /QG3K3j26IchCQPl7RcYG8TYjJ9TTtH/0Eq4CBB8PjMk+NaMw5DEY/CnmG/ehE7n4W+vb1v3cX/zf0V8 fs1dJLv3lU/UJ/A63SsAs8U/nvlPSl599+h/4q+rjx /4b+SjMMPvh/HV/uzBD15ZuL0x6IkihFR1++54zh6zbmoSOsqt+k+/f6cfyk1q+zMz6Y4VzEi7BK4QiL +mvyg6C6fbg0mPKJDpA6DC67uYP/wysMH2i/O3/RPj48p1xV+q9+htQI7o7b6gHQE1XuMftqq78p/M58 hWtf+PDVXf8/kFH9tG3s5DHq0Fpg3o0qEm0eD1B+7P jcgrusj04cBh7z9ilXt8mOu0v5BC/lf+T4Kv/NcYrqAeKjfMj8MZ9O1qsaYxF1ompLcrOy+lgxzF/HVz s5Hn3Ms6b1dX/Qt0JD05InOipL5MHAme/9HKI4Pt7lp5xRI/40iONHJv2D/1t78PkpGy4F/1Tu0C6iZ+ wDpyl1Fyf9YvenHP/TD83jQVd9a/1bczAwyk4Je8QN frh9h/9pjz24J/fS1+3CH5T8bEs0e+8L2/IUfqiAQ5861Yd0K00Fvz265Snj6hC8dPYlz6kAG/FdeDu+ ijPydnwVZ+Tt+CruruwPX/0WxWjDed+Ft+Mra8H/a77tu1dlt2HL5/RLdQx0t45+g0280pXWHahF44ph rwUK1qTk/k7SY0Fl6tC09Scw4+D7uAMUCLjm454oED gjvfTPO/RXITfHV/nfjVP/l+ZdL6W5jegmwknRx31q6DrqsV47VmaMtfe63IOZo2BZeSCGoGqFO5jsvf TS1+1PPpMNF4Zq8Yzdz/+fqXNHtqjVkbR/R/Fp1l8SPWCyS5RIfe7qfXJLHJ+3ziYF+xsfeQWkaZ1hiJ mRfiCdhfAL/cft5uQojAP2UIklrINTe3A4Is2Kmvl/ hnRQXuGrDD+Q/qhxY6D/Cl+le1Y/HbX+ncBXU/gq3Qv+C/61/p2j9p+n1/e0azmv5RF6Aw3wsk5pcTS7 vJxlH06pgErM+Crd/iIX6EHlQ/gq/Qs/V79Dcs526K2i5+GK6bX+nQdfCUvMg6+y/39bG5VXa9N/PRwy Z/imoxyJYuxqc2tAh4US7kLUGqZSh5+3RnaNBr99/C f8tf49/lLrzfeYNmQ5pfnpOz1onMGso1Rm9CWA95nccebIupKxU23/K5N9k5fcw3kjWrvvAUnZn0C/B[employer]ING ATTORNEY 0Uk0Thuo4Xtfj8J/3yyM1EjgFOypobass2KTwd/mf/6rnhbw/XzbN/lWU8+3lRe5xItGiiJmjZw1BHd1 em8JX+d+Gr6/dPOfQn6X5Ff4CBlX/Sv/UEWY1dpVjv 8VW6q7/zGz1U6yx4S/sXv9UqUR1r7w7m3VY+6xmreLBf1Dj8x75LpFlrZ77GT01ht/JqHMsVvKh3Qj05 I8VvTBy6l0zuowbC6K50R7FHqguuu6Owsy6fxV22Aj9JuZh6+Or6n/3nUz/t4S9FZWgLe/7x1X3R+LT/ xKqFdWs7vc8OH805w7io121wOd1Ob1+soY97p3b+MV KAQpDxVWicnbhc8G/JmCGF78RyS/7Dy+1vXgvzqn+r/edjwC3/v4R876zW/b9h9f+FRrpj307Gc+psh9 FqvR+x8jLe7CqpgpQ2aqvE+JlLt3IN7I3HygCtza7Dh/ZzotX+IiznGMo8E1Vr+G+Y51QYcwtw3FFwW7 JX1/3mu+nmfSIZte1V7B0tzb+4QM7Nt9X4Ff80puZO jesIPz+08hs04houjYwRA906fkEaddgg28U3hu+l0clkURdI2E0lXTj1jLAY1R/HwVeZ/9HgX+NzjBqf Q4W8d3v3UAa+bqXfE8b01TwpKrH+s9yj29K14NWlbS4lh6N/claudia+R+7icekjeuG9r45NfXh7BLglCVwaK LO8DPwU+Za4ZhvB09e1te+63p/wRU9ovA/zr/saxmP AFMSBh20DpMNDCTcF6Fs58lFe0Cdq+Xeh8UP+d7imch7zaYwxhM8rg2YkD+DS91hl5Yk1OWecOOWFe/I R/wB/iC53ZC1E5nvz37XSw73825Q2hg7/Yx602Kq6l8TH/gNbVmiiDi52T4+SjFYol9xdY6MDNy8rbmi C+Kt9tqBf8+Cvb6hh3ekE/b/3bM2/n/NdD7t/5ssp7 1j213t0d/4hmiBu6B7g7z6u/2p/C/Na/On+Ps3/lmjd/+Yy7htDMd/pfNLr4NKvKn/bKdxyIq0CMI84s h+9emIklM5Emij+Ucje1B4H/Kv3r/kZs/L8b/6/pMxx6InkA/Ic4975CilI2/l/uh8wuMgb7bEftcez3 Pzbas+5fpX/NB5bh494y7KlAmp7+vru+Ku/6qrzrq/ Tb3u3Iz1L2tb+xvjrvXl+Ho99pD5y/FXLX/7u+Ku/6JsJPhA+Ejzf+URVuR2mtg296s/DVkn+ZV7g8Cz ZOR5oz5M8m5gs/Bv/+iwcuKt9932yJwj/J7x9kWn87JC6EpM/dN1tW+mqXAaD0OuxrXZ/3g8evHxUcpW +tKx8NKVvt1p5k7GtI/cFbr1crgkwth5TV/AfSqfOj 6hg8iWPbfIreWZe0wjDep270C+Fr/u94Barv5Totlh5FxfH++QU9uNQq5/28UOmc4r/7Zqs3+Nf5/up1 gx68ib6k3buQ56jOYx1L75MjkH/1whurB/zrPHQJX+W4Bcr9mD44j78MG96uXZ66W9qlnfDB3ARQa9ux M04QbgC7QJjO6zS4O3Ea0c/SPet/8T7IjzArjUQq/s Cgey03Ac5iNY+fSS2Cf9bxr36eoqih3k0xiabg/583m6cwpqCQp1FodYxyNKGtM4qRfSqlcxCnjq/uAy /gbtI7qc4TYw2il+UYr3wj/K7wE+MKjHj73h2tcfEtrW04346Al8pnXfpFVX46eFg+piO8I/yE/0R+UN 7RRYbrrQ1ZOuGvl/PWmeywd038015A9S/v9u93qi0q FR3hO/rZ4lY0LA7/lDfvtyvMhH/d916B/pbW1yK5L7O/1/+w5t4tMyvtGrgY8H22IxdkfSgn/2P49tdt IP0B/6QEq2Z5iPO0ja9KW0eo4J/gv+C/4V/9V2bPynPzW/37FlrKBlcN5LFddAwn0Nq07J9ef/Y3lvav yu8J4dGjvjG9SZ89W+0631+71vtL+4unUxuN4GyucS gLi6iy0++v9uv2V/HB9m3kR0/sr/uw07w8a3m2r7hR5v3tz7aW/gP+RM1olS0eMmqjB+Ff8+/+Av4L4e s+w/7qPsPW+jNe6325i6Mp+qI18iHW06l/orIi949pWcu8zz0sfFEoPxpqu7j5vEP2dj+4IaksG62I8r dtm/A/1Hk4cBRE9xo0sNoN/7TnT+59F6dCcvu9gBoO gvQ87a0o3A3bsV4cLW1Z/pT3uuE/Pr80T6UpaD0F/g7/uu+9W91/2l1Qw4T+FvKj9+bag8p9C4kq7+71 ad2xmofEqPD0n3hb0zY76fzU5j/xnerhpz433N9A5F7eF0gcJ0z4lf+8e82/r3b7eG15Hfl1S5giue2S 73fPef/wlcu+0/4eL98hX8w/8TKZ9sL+5kk1Q83/+M qnyf+sf/2T+89/nTX1/uErXxnmt/8c6v2682G3pS3Fj+yB8ehqhp2iQ+6P8uO7S6z892ChW83Vavp61D Xee+0Tj3yTUAWiet5a7h3fcj6C/erCF4I8la8Glpw/6Ph/X49WbzvzVrW325EHi3+mx5nB1LZre1//q7 oVvspvobzCV+yjqo9muEBt3q4Jy005/IWvrhv+9Z59 C1+bu1miGnOyOv6ox/WRqnO9uaRMmX/CV+wCxP1Fb6ysk+fA9Ej5RaGV/BfCr6p/4Sv1C+MbbALcaQ9x Qllj7cz8F8pZeoQNHsuKthFxq1H+wl1l73igZO/3GXZM+E8vd+0k0Ec6ibYahgf81m9Aynrpx+9V5ykb +GqvOj/ejMh8NCJkI2anPgi47fi1jc57Mlb7m4W02e i6LPe40/ng62u3HbeOlsy5jB800V5fUndZ8l3O7pa768iDlrOOrCx6/c50IhWmEl1lcA6t6SkFM1AT3u +74lno2NkgzN3w+5o5amRenRXU9mpWo6oLn1s4ab8abh294Xmfg+4T/fAHGDh1UxdE1V/GYfg09fPKj1 AYp24F/wn9o/Dy+ebLzSqr6JG5Jas3GpD/YT6w+BMY p65z/ZMEoCnGy2YAIXl6Vv35rp/bkGZxZYWr73kIDir4TffU/qOr3iquG6t89n+yfzSAvO7rP8etpE/w +vnuVR96OzgGSlF1MDk8RKd6ie+Eeub/E5Ba+2HcjIwCiBZkBF6q2ZO0Ll6I/Q17P+GNh3/TjDU0WQbM PFzNB0CqmztnsUOSZhBUb29K7lL8IuTqAR0kL1NjKG 3LA8O3vyK7yyUlA56VxeOY1Z2c5YmM0MqmiJjTwR9svM+QoZjDga05qR2NHaczPdL/QNfip3TxKLhWjC RmbmMhpUm9x4SbSkYMjUdcJ24EDHYmgN+MQLvW+8RsLnqg+JBwcmaOJqS85cE0LE5R5saXnw56BJQ47Z 9CLbV/en687X0Snex+wpvN/Herman/z6BVFAf5Vk8oH4/ [file] v2HYeFI4wDj2FZDZmqvYD4ceG9YZPsVH98utIM/[facility] [file] Gl7Wy816OXMqOAAZNss+JeicyYHiwIefHCXMGCFcUiP5MbNiHG6J ID Date Data Source [id number] 04/11/2020 03:58:00 PM EST [facility] Name Value Range Interpretation Code Description Data Tisha rce(s) Supporting Document(s) VANCOMYCIN RANDOM 28.3 ug/mL [facility] THERAPEUTIC RANGE IS ONLY AVAILABLE FOR PEAK AND TROUGH SPECIMENS. RANDOM LEVEL RESULTS MUST BE INTERPRETED BY THE PHYSICIAN. ID Date Data Source [id number] 04/11/2020 10:56:42 AM EST [facility] Name Value Range Interpretation Code Description Data Tisha rce(s) Supporting Document(s) SODIUM 139 mmol/L (136-145) [facility] POTASSIUM 4.3 mmol/L (3.6-5.2) [facility] CHLORIDE 108 mmol/L (100-108) [facility] CO2 27 mmol/L (22-31) [facility] ANION GAP 4 mmol/L (7-16) L [facility] UREA NITROGEN 18 mg/dL (7-24) [facility] CREATININE 0.94 mg/dL (0.60-1.00) [facility] BUN/CREAT RATIO 19.1 RATIO (10.0-20.0) [facility] GLUCOSE 238 mg/dL (70-99) H [facility] CALCIUM 8.0 mg/dL (8.4-10.2) L [facility] GFR >60 ml/min/1.73m2 (>59) [facility] GFR ( AMER) >60 ml/min/1.73m2 (>59) [facility] GFR INTERPRETATION [facility] --NORMAL KIDNEY FUNCTION OR MILD DISEASE - GFR >OR= 60CHRONIC KIDNEY DISEASE - GFR 15 - 59RENAL FAILURE - GFR <15 Est. GFR calculation based on the MDRDstudy equation, which assumes a steadystate for creatinine. Est. GFR should notbe used for medication dosing. ID Date Data Source [id number] 04/11/2020 10:25:22 AM EST [facility] Name Value Range Interpretation Code Description Data Tisha rce(s) Supporting Document(s) WBC 13.8 10*3/uL (4.1-11.0) H [facility] RBC 4.45 10*6/uL (4.00-5.40) [facility] HGB 12.2 g/dL (12.0-16.0) [facility] HCT 35.8 % (36.0-47.0) L [facility] MCV 80.6 fL (80.0-95.0) [facility] MCH 27.5 pg (27.0-32.0) [facility] MCHC 34.1 g/dL (32.0-36.0) [facility] RDW 15.2 % (10.5-14.5) H [facility] PLT 214 10*3/uL (150-450) [facility] MPV 9.2 fL (7.1-10.7) [facility] ID Date Data Source [id number] 04/11/2020 08:21:19 AM EST [facility] Name Value Range Interpretation Code Description Data Tisha rce(s) Supporting Document(s) POC NOVA GLU 243 mg/dL (70-99) H [facility] BY [facility] ID Date Data Source [id number] 04/11/2020 07:06:00 AM EST [facility]) Name Value Range Interpretation Code Description Data Tisha rce(s) Supporting Document(s) Est. Average Glucose 171 mg/dL [facility]) Hemoglobin A1c/Hemoglobin.total in Blood 7.6 % 4.0-6.0 [facility] ([facility]) Performed using Siemens [place] immunoassa y. Care must be taken when interpreting HbA1c results in patients with a hemoglobin variant or decreased erythrocyte lifespan. Values 5.7 - 6.4% suggest prediabetes. Values >=6.5% are diagnostic for diabetes. REFERENCE: DIABETES CARE 2018: 41(S13-S27). PERFORMED AT [address] [place] [id number] ID Date Data Source [id number] 04/11/2020 06:57:00 AM EST [facility] ([facility]) Name Value Range Interpretation Code Description Data Tisha rce(s) Supporting Document(s) Sodium [Moles/volume] in Serum or Plasma 137 mmol/L 136-145 [facility] Chloride [Moles/volume] in Serum or Plasma 104 mmol/L 100-108 [facility]) Potassium [Moles/volume] in Serum or Plasma 3.9 mmol/L 3.6-5.2 [facility] Creatinine [Mass/volume] in Serum or Plasma 0.97 mg/dL 0.60-1.00 [facility] ([facility]) Urea nitrogen [Mass/volume] in Serum or Plasma 17 mg/dL 7-24 [facility] Carbon dioxide, total [Moles/volume] in Serum or Plasma 31 mmol/L 22 -31 [facility] ([facility]) Anion gap in Serum or Plasma 2 mmol/L 7-16 [facility] ([facility]) Calcium [Mass/volume] in Serum or Plasma 9.1 mg/dL 8.4-10.2 [facility] ([facility]) Urea nitrogen/Creatinine [Mass Ratio] in Serum or Plasma 17.5 1 0.0-20.0 [facility] ([facility]) Glucose [Mass/volume] in Serum or Plasma 57 mg/dL 70-99 [facility] ([facility]) Globulin [Mass/volume] in Urine by Electrophoresis 5.0 g/dL 2.7-4.3 [facility] ([facility]) Albumin [Mass/volume] in Synovial fluid 2.7 g/dL 3.5-4.6 [facility] ([facility]) Protein [Mass/volume] in Synovial fluid 7.7 g/dL 6.4-8.2 [facility] ([facility]) Alkaline phosphatase [Enzymatic activity/volume] in Serum or Plasma 206 U/L 45-117 [facility] ([facility] ) Alb/Glob ratio 0.5 [facility] ([facility]) Bilirubin direct and total panel [Mass/volume] - Serum or Pl asma 0.4 mg/dL 0.0-1.0 [facility] ([facility] ) PLEASE NOTE: Total bilirubin results may be falsely elevated in patients taking Eltrombopag. Aspartate aminotransferase [Enzymatic activity/volume] in Serum or Plasma 11 U/L 11-39 [facility] ([facility]) Alanine aminotransferase [Enzymatic activity/volume] in Seru m or Plasma 18 U/L 12-78 [facility] ([facility] ) Glomerular filtration rate/1.73 sq M pre dicted among non-blacks [Volume Rate/Area] in Serum or Plasma by Creatinine-based formula (MDRD) Laboratory test result [facility] ([facility]) Glomerular filtration rate/1.73 sq M pre dicted among non-blacks [Volume Rate/Area] in Serum or Plasma by Creatinine-based formula (MDRD) Laboratory test result [facility] ([facility]) -- NORMAL KIDNEY FUNCTION OR MILD DISEASE - GFR >OR= 60 CHRONIC KIDNEY DISEASE - GFR 15 - 59 RENAL FAILURE - GFR <15 Est. GFR calculation based on the MDRD study equation, which assumes a steady state for creatinine. Est. GFR should not be used for medication dosing. Glomerular filtration rate/1.73 sq M pre dicted among blacks [Volume Rate/Area] in Serum or Plasma by Creatinine-based formula (MDRD) [facility] ID Date Data Source [id number] 04/11/2020 05:25:18 AM EST [facility] Name Value Range Interpretation Code Description Data Tisha rce(s) Supporting Document(s) POC NOVA GLU 339 mg/dL (70-99) H [facility] PERFOR[facility] BY [facility] ID Date Data Source [id number] 04/11/2020 05:14:02 AM EST [facility] NT INFORMATIONPatient MRN Name Date of Age Gend*PT [id number] Tatianna Soto 1965 54 years F IPPT Location Admission Date/Time Visit ID Attending [id number] 04/10/202316 --- Brittani Birmingham MD ([id number]) EPI ID CSN Admitting Provider [id number] Brittani Birmingham MD([id number])History per PA note get CTA to define circulation better Name Value Range Interpretation Code Description Data Tisha rce(s) Supporting Document(s) ID Date Data Source [id number] 04/11/2020 05:12:37 AM EST [facility] NT INFORMATIONPatient MRN Name Date of Age Gend*PT [id number] Tatianna Soto 1965 54 years F IPPT Location Admission Date/Time Visit ID Attending [id number] 04/10/202316 --- Brittani Birmingham MD ([id number]) EPI ID CSN Admitting Provider [id number] Brittani Birmingham MD([id number]) Attestation signed by Brittani Birmingham MD at 04/11/2020 5:12 AMI saw and evaluated the patient and reviewed pas note. I agree with thehistory, physical and medical decision making with the following additions,exceptions, and/or observations:Signature: TIMA Lawrenceate: April 11, 2020Time: 5:12 AM---- VASC ULAR SURGERYADMISSION HISTORY AND PHYSICALMelkarma SotoMRN:[id number]: 1965Informant: The patient who is reliable as well as old medical recordsPrimary Care Provider: TOM RUANO DOAttending: Brittani Birmingham, MDSubjectiveHPI:54 years White or female, well known patient to the vascularsurgery service with a past medical history significant for PVD and ischemia,CAD (s/p quintuple bypass graft 01/16/2016), HTN, DM, COPD, hyperlipidemia, PAD,HERMAN and heavy smoker) has been [facility] with aright groin infection. Patient claims she was made to go to the ED by her homecare nurses as she was having extremely foul smelling purulent drainage and painin the groin. Patient is not a good historian, she claims that the redness mayhave been there for about a week and the foul smell for about 3 days.02/05/20: Right femoral endarterectomy, Iliac to profunda femoral bypass [id number] ringed PTFE and Jump graft from the Right Iliofemoral bypass to the belowknee popliteal artery using 6mm Ringed PTFE. Ligation of the SFA.; Surgeon:02/12/20 CREATION, BYPASS, ARTERIAL, FEMORAL TO POPLITEAL, LEFT; left heeldebridement with wound vac placement; Surgeon: Dr. SanfordThe right heal had osteo in it and she was discharged 02/16/20 with 6-weekcourse of IV meropenem (for the osteomyelitis) and home nursing care. [facility] for poorly healing ulcers and poor compliancewith IV antibiotic regimen. Apparently the IV antibiotic regimen was prescribedfor 3 times a day and she was receiving only once daily. She also had struggleswith ADLs, ambulation and meal preparation. During her second hospital courseshe was continued on IV meropenem 3 times a day via right arm PICC and was beingconsidered for short-term rehabilitation placement. Unfortunately, there wereno facilities locally that would accept her. On day 3 of hospital admission shehad become quite frustrated and signed out of the hospital AMA having PICC lineremoved as well as the wound VAC. She was started on high-dose oral Cipro andFlagyl for 2 weeks and was referred to the wound clinic locally. She is nowfollowing with Dr. Chavez once weekly and has nursing into her home everyWednesday, Wednesday, and Wednesday.She was last seen by SPRAY DRY OPERATOR (Karen Bar) in the cardiology office on 03/29/20 forroutine follow up.Past Medical History:Past Medical History:Diagnosis Date Arthritis Chronic GERD controlled on PPI Claudication of both lower extremities claims she has never had official testing or deeper evaluation into this as of12/27/2015 COPD (chronic obstructive pulmonary disease) Coronary artery bypass graft 12/2015 Quintuple coronary bypass; KULKARNI to LAD, triple sequential graft to diagonal,OM1 and OM2 and single saphenous vein graft to distal RCA Diabetic neuropathy DM2 (diabetes mellitus, type 2) >= 20 yr Echocardiogram 2016 Ejection Fraction is 50 %. Apical anterior wall hypokinesis. Aoritc rootsclerosis/calcification with a round calcified nodule in the aortic wall ofunceratin etiology Echocardiogram 07/05/2019 Normal LV size with borderline LVH and overall mildly reduced left ventricularsystolic function. There is akinesis of apical segment, distal septal anddistal anterior wall. Overall estimated LVEF 45 to 50%. Grade 1 diastolicdysfunction. No significant valvular disease. Likely normal central venouspressure. Unable to estimate pulmonary artery pressure Heavy cigarette smoker (20-39 per day) since 18 yo HLD (hyperlipidemia) Hx of Diabetic coma 2016 unresponsive for while - ended up even having PEG/trach for while Non-STEMI (non-ST elevated myocardial infarction) 2016Past Surgical History:Past Surgical History:Procedure Laterality Date ANGIOPLASTY 07/2019 Dr. Bang BLADDER SURGERY CARDIAC SURGERY N/A 01/01/2016 Procedure: MEDIAN STERNOTOMY CORONARY GRAFTS X5 KULKARNI TAKEDOWN W RIGHT LEGENDOSCOPIC SAPHENOUS VEIN HARVEST; Surgeon: Saba Smith MD; Location: [facility]; Service: Cardiac/Open Heart; Laterality: N/A; FOOT SURGERY GASTROSTOMY W/ FEEDING TUBE 2014 LEG SURGERY PEG W/TRACHEOSTOMY PLACEMENT 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 > 1000 in early 2015 Right femoral endarterectomy, Iliac to profunda femoral bypass using 6mmringed PTFE and Jump graft from the Right Iliofemoral bypass to the below kneepopliteal artery using 6mm Ringed PTFE. Ligation of the SFA. Right 02/06/2020 Dr. Sanford STERNAL WIRE REMOVAL N/A 02/08/2020 Procedure: REMOVAL, STERNAL WIRE; Surgeon: Saba Smith MD; Laterality: N/A; TRACHEOSTOMY 2015 TUBAL LIGATION VASCULAR SURGERY Right 02/05/2020 Procedure: Right femoral endarterectomy, Iliac to profunda femoral bypass [id number] ringed PTFE and Jump graft from the Right Iliofemoral bypass to the belowknee popliteal artery using 6mm Ringed PTFE. Ligation of the SFA.; Surgeon:Dain Sanford MD; Laterality: Right; VASCULAR SURGERY Left 02/12/2020 Procedure: CREATION, BYPASS, ARTERIAL, FEMORAL TO POPLITEAL, LEFT; Surgeon:Dain Sanford MD; Laterality: Left; WOUND DEBRIDEMENT Left 02/12/2020 Procedure: DEBRIDEMENT, WOUND HEEL, LEFT WITH WOUND VAC APPLICATION; Surgeon:Dain Sanford MD; Laterality: Left;Medications:Medications Prior to AdmissionMedication Sig Dispense Refill Last Dose albuterol (PROVENTIL HFA;VENTOLIN HFA) 108 (90 Base) MCG/ACT inhaler Inhale 2puffs every 4 (four) hours as needed for shortness of breath 0 Taking ASPIRIN ADULT 325 MG tablet Take 325 mg by mouth daily 04/10/2020 at 0900 atorvastatin (LIPITOR) 80 MG tablet Take 80 mg by mouth daily 04/09/2020 [id number] buPROPion (WELLBUTRIN XL) 150 MG 24 hr tablet Take 150 mg by mouth daily04/10/2020 at 0900 clopidogrel (PLAVIX) 75 MG tablet Take 75 mg by mouth daily 04/10/2020 [id number] cyclobenzaprine (FLEXERIL) 5 MG tablet Take 5 mg by mouth 2 (two) times a dayas needed for muscle spasms 2 04/09/2020 at 2000 docusate sodium (COLACE) 100 MG capsule Take 200 mg by mouth 2 (two) times aday as needed for constipation 1 04/10/2020 at 0900 ferrous sulfate 325 (65 FE) MG EC tablet Take 325 mg by mouth daily withbr eakfast 0 04/10/2020 at 0900 lisinopril (PRINIVIL,ZESTRIL) 5 MG tablet Take 5 mg by mouth daily04/10/2020 at 0900 loratadine (CLARITIN) 10 MG tablet Take 10 mg by mouth daily 04/10/2020 [id number] metoclopramide (REGLAN) 10 MG tablet Take 10 mg by mouth 2 (two) times a day04/10/2020 at 0900 omeprazole (PRILOSEC) 40 MG capsule Take 40 mg by mouth 2 (two) times a day04/10/2020 at 0900 ondansetron (ZOFRAN-ODT) 4 MG disintegrating tablet Take 4 mg by mouth every 8(eight) hours as needed for nausea Unknown at Unknown time oxyCODONE-acetaminophen (PERCOCET) 5-325 MG per tablet TAKE ONE TABLET BYMOUTH EVERY 4 HOURS NEEDED FOR PAIN MAXIMUM DAILY DOSE 6 [id number]/10/2020 at 1100 pentoxifylline (TRENTAL) 400 MG CR tablet Take 400 mg by mouth 3 (three) timesa day with meals 6 04/10/2020 at 0900 pregabalin (LYRICA) 200 MG capsule TAKE ONE CAPSULE BY MOUTH TWICE A DAYMAXIMUM DAILY DOSE 2 CAPSULES 04/10/2020 at 0800 STEGLATRO 15 MG TABS Take 15 mg by mouth daily 2 04/09/2020 at 2000 TRESIBA FLEXTOUCH 200 UNIT/ML SOPN Inject 72 Units under the skin 2 (two)times a day 2 04/10/2020 at 0900 TRULICITY 1.5 MG/0.5ML SOPN Inject 4.5 mg under the skin once a week on Qbampf35/20/20 at 0800 nystatin (MYCOSTATIN) powder Apply 1 application topically 2 (two) times a dayas needed (for rash) 2 TakingAllergies:Basaglar kwikpen [insulin glargine]; Grapefruit concentrate; andInvokana [canagliflozin]Family History:Family HistoryProblem Relation Age of Onset Other Mother 68 more sudden of unknown causes COPD Father 55 Healthy, No Significant History Sister Heart disease Brother Diabetes Brother Healthy, No Significant History Sister Healthy, No Significant History SisterSocial History:Social HistoryTobacco Use Smoking status: Current Every Day Smoker Packs/day: 1.00 Years: 35.00 Pack years: 35.00 Types: Cigarettes Smokeless tobacco: Never Used Tobacco comment: Per pt working with PCP for plan in placeSubstance Use Topics Alcohol use: No Drug use: NoReview of SystemsDenies fevers, chills, SOB, (+chronic cough from smoking), CP, abdominal pain,UTI symptomsPhysical ExamVital Signs: BP 122/58 (BP Location: Left upper arm, Patient Position: Lying) |Pulse 92 | Temp 100.9 F (Oral) | Resp 18 | Ht 1.626 m (5' 4") | Wt 80.7 kg(178 lb) | SpO2 95% | BMI 30.55 kg/m General Appearance: 54 years female with extremely hoarse voice who is in noacute distress, appears older than stated age, pleasant and cooperative. HEENT:Head: NC/AT.Neck: Supple without masses. Trachea is midline.Lungs: wheezes throughoutHeart: S1S2 regular rate and rhythm.Abdomen: Soft, non-tender, non distended, no masses, no organomegaly appreciatedno pulsatile masses, positive bowel soundsRight groin erythema, extreme foul smell; + purulent drainage; about 2 cm openarea with multiple excoriated areas (see pic below: taken with patients verbalconsent)Extremities: right LE: scars mostly well healed in the leg distal to the groinarea; +DP/PT signals; one small area of hardened skin over plantar aspect of 5thMTP; healing ulcer by the 5th toe (see photo); +dorsi/plantar flexionLeft: well healed scars; +DP/PT signals; heel ulcer with no signs of infection(see photo) +dorsi/plantar flexionNeurological: Alert and oriented x 3, speech clearImagining and other DiagnosticsDiagnostic tests reviewed:Lab ResultsComponent Value Date WBC 8.6 02/20/2020 HGB 10.2 (L) 02/20/2020 HCT 30.2 (L) 02/20/2020 PLT 430 02/20/2020 CHOL 218 (A) 06/14/2019 TRIG 384 (A) 06/14/2019 HDL 34 (A) 06/14/2019 ALT 15 02/05/2020 AST 13 02/05/2020 NA 144 02/19/2020 K 4.1 02/19/2020 CL 105 02/19/2020 CREATININE 0.60 02/19/2020 BUN 11 02/19/2020 CO2 32 (H) 02/19/2020 TSH 2.26 11/08/2019 INR 0.98 02/07/2020 HGBA1C 8.3 (H) 02/18/2020Nithyaaida joaquin Artemio Charles is a 54 years female with right groin infectionActive Problems: * No active hospital problems. *1. Right groin infection with sepsis; PVD- blood cultures x 2- wound culture (I obtained the culture myself and got a deep culture)- zosyn and vanco (patient was on meropenam 1 g IV q 8 for osteo of her leftheel in January)- skin surrounding the open area looks fungal in nature - she has been puttingantifungal powder - will order IV fluconazole 400 mg once- MRSA nares screen- IV fluids D5/12 NS at 125 cc/hr- stat labs ordered here (I did review [facility] labs 04/10 at 1553 Cr 1.10; WBC16.3)- ?imaging - will d/w in the am- continue ASA/plavix/trental2. DM II insulin dependent- patients BS at 1553 was 356 but currently at 12: 30 am is 55. Patient has noteaten anything all day - will hold tonight's lantus dose; start her on D5 1/2 NSand reassess in the AM- reviewed with pharmacist: Lantus 30 units BID and humalog SS- hgb a1c pending3. Tobacco abuse - started on wellbutrin but has not been helping; still smokesmore than a pack a day (20-40 a day); tobacco cessation discussed for healing4. CAD s/p quintuple CABG 12/2015 - in [place]; recent visit with NPrecommendations: continue ASA, Plavix, ACEI and statin therapyECHO 07/06 EF 45-50%5. HLD- continue statin6. HTN- continue lisinopril7. COPD- continue inhaler- LET8. Pain management: continue flexeril, lyricaC[facility]: heparin for DVT prophylaxis.Code Status: FullHealth Care Proxy: -ADOD: unknownPatient condition and plan of care discussed with Brittani Birmingham MD and heagrees. Further adjustments to the plan will come from him.Signature: GLENIS Magana-CDepartment of Vascular SurgeryDate: April 11, 2020Time: 12:09 AM Name Value Range Interpretation Code Description Data Tisha rce(s) Supporting Document(s) ID Date Data Source [id number] 04/11/2020 09:44:53 AM EST [facility] Name Value Range Interpretation Code Description Data Tisha rce(s) Supporting Document(s) POC NOVA GLU 162 mg/dL (70-99) H [facility] [place] PERFORMED BY [facility] CLINICAL STAFF ID Date Data Source [id number] 04/14/2020 08:18:37 AM EST [facility] SPECIMEN DESCRIPTION SURGICAL WOU NDSPECIAL REQUESTS NONEGRAM STAIN MANY (>25/LPF) WHITE BLOOD CELLS MODERATE (5 TO 10/OIF) GRAM POSITIVE COCCI RARE (<1/OIF) GRAM NEGATIVE RODSCULTURE RESULTS MANY BETA HEMOLYTIC STREPTOCOCCI GROUP A ISOLATED MANY STAPHYLOCOCCUS AUREUSPRELIMINARY CULTURE RESULT CALLED TO CAROLYN ON [facility] D4 AT 1147 ON04/12/20 [id number].NOTE: BIOCHEMICAL IDENTIFICATION SYSTEMS WERE SET UP ON SUSPECTCOLONIES TO R/O PATHOGENS. REPORT STATUS FINAL 04/14/2020ORGANISM BETA HEMOLYTIC STREPTOCOCCI GROUP A ISOLATEDMETHOD MICPEN G (AMP,AMOX) <=0.06 SUSCEPTIBLE SUSCEPTIBILITY TO PENICILLIN PREDICTS SUSCEPTIBILITY TO AMPICILLIN, AMPICILLIN/SULBACTAM, AMOXICILLIN, AMOXICILLIN/CLAVULANATE, CEFAZOLIN, AND CEFTRIAXONE.ERYTHROMYCIN <=0.12 SUSCEPTIBLEVANCOMYCIN <=0.12 SUSCEPTIBLECLINDAMYCIN <=0.25 SUSCEPTIBLECEFTRIAXONE <=0.12 SUSCEPTIBLETETRACYCLINE 0.5 SUSCEPTIBLE ISOLATES SUSCEPTIBLE TO TETRACYCLINE ARE ALSO SUSCEPTIBLE TO DOXYCYCLINE AND MINOCYCLINE.AMPICILLIN <=0.25 SUSCEPTIBLE ISOLATES SUSCEPTIBLE TO AMPICILLIN ARE ALSO SUSCEPTIBLE TO AMOXICILLIN.LEVOFLOXACIN 0.5 SUSCEPTIBLEMOXIFLOXACIN 0.25 SUSCEPTIBLEORGANISM STAPHYLOCOCCUS AUREUSMETHOD MICCLINDAMYCIN 0.25 SUSCEPTIBLE THIS ISOLATE WAS TESTED FOR INDUCIBLE CLINDAMYCIN RESISTANCE. ER YTHROMYCIN <=0.25 SUSCEPTIBLELINEZOLID 2 SUSCEPTIBLEOXACILLIN <=0.25 SUSCEPTIBLE OXACILLIN PREDICTS RESULTS FOR PENICILLINASE RESISTANT PENICILLINS, BETA LACTAM/BETALACTAMASE INHIBITOR COMBINATIONS,CEPHALOSPORINS (WITH THE EXCEPTION OF CEPHALOSPORINS WITH ANTI MRSA ACTIVITY), AND CARBAPENEMS PER CLSI STANDARDS.TETRACYCLINE <=1 SUSCEPTIBLE ISOLATES SUSCEPTIBLE TO TETRACYCLINE ARE ALSO SUSCEPTIBLE TO DOXYCYCLINE AND MINOCYCLINE.VANCOMYCIN <=0.5 SUSCEPTIBLETRIMETH/SULFA <=.5/9.5 SUSCEPTIBLEDAPTOMYCIN 0.5 SUSCEPTIBLECEFTAROLINE 0.25 SUSCEPTIBLE Name Value Range Interpretation Code Description Data Tisha rce(s) Supporting Document(s) ID Date Data Source [id number] 04/11/2020 11:06:10 AM EST [facility] Name Value Range Interpretation Code Description Data Tisha rce(s) Supporting Document(s) SPECIMEN DESCRIPTION [facility] METH RES STAPH AUR (NEG) A [facility] COMMENT [facility] D4 AND [facility] AT 1 104 [place] [id number] OI [id number]. ID Date Data Source [id number] 04/11/2020 02:06:41 AM EST [facility] Name Value Range Interpretation Code Description Data Tisha rce(s) Supporting Document(s) HEMOGLOBIN A1C @ 7.6 % (4.0-6.0) H [facility] Performed using Siemens [place] immunoassa y.Care must be taken when interpreting IbD6copwupdf in patients with a hemoglobin variantor decreased erythrocyte lifespan. Values 5.7 - 6.4% suggest prediabetes.Values >=6.5% are diagnostic for diabetes.REFERENCE: DIABETES CARE 2018: 41(S13-S27).PERFORMED AT [address] [place] [id number] EST AVERAGE GLUCOSE 171 mg/dL [facility] ID Date Data Source [id number] 04/17/2020 10:41:04 AM EST [facility] SPECIMEN DESCRIPTION PERIPHERAL 2SPECIAL REQUESTS NONECULTURE RESULTS NO GROWTH 6 DAYSREPORT STATUS FINAL 04/17/2020 Name Value Range Interpretation Code Description Data Tisha rce(s) Supporting Document(s) ID Date Data Source [id number] 04/17/2020 10:41:04 AM EST [facility] SPECIMEN DESCRIPTION PERIPHERAL 1SPECIAL REQUESTS NONECULTURE RESULTS NO GROWTH 6 DAYSREPORT STATUS FINAL 04/17/2020 Name Value Range Interpretation Code Description Data Tisha rce(s) Supporting Document(s) ID Date Data Source [id number] 04/11/2020 01:57:49 AM EST [facility] Name Value Range Interpretation Code Description Data Tisha rce(s) Supporting Document(s) SODIUM 137 mmol/L (136-145) [facility] POTASSIUM 3.9 mmol/L (3.6-5.2) [facility] CHLORIDE 104 mmol/L (100-108) [facility] CO2 31 mmol/L (22-31) [facility] ANION GAP 2 mmol/L (7-16) L [facility] UREA NITROGEN 17 mg/dL (7-24) [facility] CREATININE 0.97 mg/dL (0.60-1.00) [facility] BUN/CREAT RATIO 17.5 RATIO (10.0-20.0) [facility] GLUCOSE 57 mg/dL (70-99) L [facility] CALCIUM 9.1 mg/dL (8.4-10.2) [facility] TOTAL PROTEIN 7.7 g/dL (6.4-8.2) [facility] ALBUMIN 2.7 g/dL (3.5-4.6) L [facility] GLOBULIN 5.0 g/dL (2.7-4.3) H [facility] ALB/GLOB RATIO 0.5 RATIO [facility] ALKALINE PHOSPHATASE 206 U/L (45-117) H [facility] BILIRUBIN,TOTAL 0.4 mg/dL (0.0-1.0) [facility] PLEASE NOTE:Total bilirubin results may be falselyelevated in patients taking Eltrombopag. AST (SGOT) 11 U/L (11-39) [facility] ALT (SGPT) 18 U/L (12-78) [facility] GFR >60 ml/min/1.73m2 (>59) [facility] GFR ( AMER) >60 ml/min/1.73m2 (>59) [facility] GFR INTERPRETATION [facility] --NORMAL KIDNEY FUNCTION OR MILD DISEASE - GFR >OR= 60CHRONIC KIDNEY DISEASE - GFR 15 - 59RENAL FAILURE - GFR <15 Est. GFR calculation based on the MDRDstudy equation, which assumes a steadystate for creatinine. Est. GFR should notbe used for medication dosing. ID Date Data Source [id number] 04/11/2020 01:27:25 AM EST [facility] Name Value Range Interpretation Code Description Data Tisha rce(s) Supporting Document(s) WBC 16.1 10*3/uL (4.1-11.0) H [facility] RBC 5.04 10*6/uL (4.00-5.40) [facility] HGB 13.7 g/dL (12.0-16.0) [facility] HCT 41.3 % (36.0-47.0) [facility] MCV 81.9 fL (80.0-95.0) [facility] MCH 27.2 pg (27.0-32.0) [facility] MCHC 33.2 g/dL (32.0-36.0) [facility] RDW 14.7 % (10.5-14.5) H [facility] PLT 254 10*3/uL (150-450) [facility] MPV 8.8 fL (7.1-10.7) [facility] ID Date Data Source [id number] 04/11/2020 01:47:11 AM EST [facility] Name Value Range Interpretation Code Description Data Tisha rce(s) Supporting Document(s) POC NOVA GLU 55 mg/dL (70-99) L [facility] [place] [facility] CLINICAL STAFF ID Date Data Source [id number] 04/10/2020 06:43:00 PM EST [facility] Name Value Range Interpretation Code Description Data Tisha rce(s) Supporting Document(s) SARS coronavirus 2 RNA [Presence] in Res piratory specimen by CHLOE with probe detection [facility] This lab was ordered by [facility] a nd reported by [facility]. ID Date Data Source [id number] 03/21/2020 01:59:00 PM EST [facility] ([facility]) Name Value Range Interpretation Code Description Data Tisha rce(s) Supporting Document(s) Arterial Ultrasound Lower Extremity Right Laboratory test result JOSE ([facility]) ID Date Data Source [id number] 03/05/2020 06:33:56 AM EST [facility] NT INFORMATIONPatient MRN Name Date of Age Gend*PT [id number] Tatianna Soto 1965 54 years F OBSPT Location Admission Date/Time Visit ID Attending [id number] 02/18/20 1640 --- --- EPI ID CSN Admitting Provider [id number] Brittani Birmingham MD([id number]) Attestation signed by Brittani Birmingham MD at 03/05/2020 6:33 AMI saw and evaluated the patient and reviewed pas note. I agree with thehistory, physical and medical decision making with the following additions,exceptions, and/or observations:Signature: TIMA Lawrenceate: March 05, 2020Time: 6:33 AM --Vascular Surgery PA Admission H&P Note Tatianna Soto Admission Date: 02/18/2020MRN: [id number]: 1965 54 yearsPrimary Care Provider: Michela COEformerly [facility] Physician: Brittani Birmingham MD Informant:Pt and chart- both reliableCC:Couldn't get abx HPI:54 yr old female who was just admitted a week ago for PVD and heel infection. On02/11 Dr Sanford took her to the OR for left heel debridement and leftfem-pop. Wound vac was applied to her heel. ID initiated meropenem. She wasdischarged to home with infusion services to dose abc TID. She was onlyreceiving abx once a day. Her home nurse sent her to [facility], who contact [facility] (oncall) for further instruction. The decision was made to send her backhere for direct admission and for case management to sort out infusion serviceson Wednesday.Denies CP, SOB, schrader, nv, fevers, chills, sweats.PMHx:Past Medical History:Diagnosis Date Arthritis Chronic GERD controlled on PPI Claudication of both lower extremities claims she has never had official testing or deeper evaluation into this as of12/27/2015 COPD (chronic obstructive pulmonary disease) Coronary artery bypass graft 12/2015 Quintuple coronary bypass; KULKARNI to LAD, triple sequential graft to diagonal,OM1 and OM2 and single saphenous vein graft to distal RCA Diabetic neuropathy DM2 (diabetes mellitus, type 2) >= 20 yr Echocardiogram 2015 Ejection Fraction is 50 %. Apical anterior wall hypokinesis. Aoritc rootsclerosis/calcification with a round calcified nodule in the aortic wall ofunceratin etiology Echocardiogram 07/05/2019 Normal LV size with borderline LVH and overall mildly reduced left ventricularsystolic function. There is akinesis of apical segment, distal septal anddistal anterior wall. Overall estimated LVEF 45 to 50%. Grade 1 diastolicdysfunction. No significant valvular disease. Likely normal central venouspressure. Unable to estimate pulmonary artery pressure Heavy cigarette smoker (20-39 per day) since 18 yo HLD (hyperlipidemia) Hx of Diabetic coma 2016 unresponsive for while - ended up even having PEG/trach for while Non-STEMI (non-ST elevated myocardial infarction) 2016PSHx:Past Surgical History:Procedure Laterality Date ANGIOPLASTY 07/2019 Dr. Bang BLADDER SURGERY CARDIAC SURGERY N/A 01/01/2016 Procedure: MEDIAN STERNOTOMY CORONARY GRAFTS X5 KULKARNI TAKEDOWN W RIGHT LEGENDOSCOPIC SAPHENOUS VEIN HARVEST; Surgeon: Saba Smith MD; Location: [facility]; Service: Cardiac/Open Heart; Laterality: N/A; FOOT SURGERY GASTROSTOMY W/ FEEDING TUBE 2014 LEG SURGERY PEG W/TRACHEOSTOMY PLACEMENT 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 > 1000 in early 2016 Right femoral endarterectomy, Iliac to profunda femoral bypass using 6mmri nged PTFE and Jump graft from the Right Iliofemoral bypass to the below kneepopliteal artery using 6mm Ringed PTFE. Ligation of the SFA. Right 02/06/2020 Dr. Sanford STERNAL WIRE REMOVAL N/A 02/08/2020 Procedure: REMOVAL, STERNAL WIRE; Surgeon: Saba Smith MD; Laterality: N/A; TRACHEOSTOMY 2014 TUBAL LIGATION VASCULAR SURGERY Right 02/05/2020 Procedure: Right femoral endarterectomy, Iliac to profunda femoral bypass [id number] ringed PTFE and Jump graft from the Right Iliofemoral bypass to the belowknee popliteal artery using 6mm Ringed PTFE. Ligation of the SFA.; Surgeon:Dain Sanford MD; Laterality: Right; VASCULAR SURGERY Left 02/12/2020 - left fem to BK popliteal bypass with saph vein VASCULAR SURGERY Left 02/12/2020 Procedure: CREATION, BYPASS, ARTERIAL, FEMORAL TO POPLITEAL, LEFT; Surgeon:Dain Sanford MD; Laterality: Left; WOUND DEBRIDEMENT Left 02/12/2020 Procedure: DEBRIDEMENT, WOUND HEEL, LEFT WITH WOUND VAC APPLICATION; Surgeon:Dain Sanford MD; Laterality: Left;Medication List:Medications Prior to AdmissionMedication Sig Dispense Refill Last Dose albuterol (PROVENTIL HFA;VENTOLIN HFA) 108 (90 Base) MCG/ACT inhaler Inhale 2puffs every 4 (four) hours as needed for shortness of breath 0 atorvastatin (LIPITOR) 80 MG tablet Take 80 mg by mouth daily B-D INS SYR ULTRAFINE 1CC/31G 31G X 5/16" 1 ML MISC USE THREE TIMES A DAY 11Taking B-D ULTRAFINE III SHORT PEN 31G X 8 MM MISC USE ONE PEN NEEDLE EVERY DAY FORTOUEO PEN 5 Taking bisacodyl (DULCOLAX) 10 MG suppository Insert 1 suppository (10 mg total) intothe rectum daily 12 suppository 0 BREO ELLIPTA 200-25 MCG/INH AEPB Inhale 1 puff daily 2 buPROPion (WELLBUTRIN XL) 150 MG 24 hr tablet Take 150 mg by mouth daily Chlorhexidine Gluconate (BIOPATCH PROTECTIVE DISK/CHG) (Dressing) MISC Applyone patch weekly with dressing change and prn 1 each 10 clopidogrel (PLAVIX) 75 MG tablet Take 75 mg by mouth daily cyclobenzaprine (FLEXERIL) 5 MG tablet Take 5 mg by mouth 2 (two) times a dayas needed for muscle spasms 2 DAILY CHE (THERAGRAN) per tablet Take 1 tablet by mouth daily 30 tablet 1 docusate sodium (COLACE) 100 MG capsule Take 200 mg by mouth 2 (two) times aday as needed for constipation 1 escitalopram (LEXAPRO) 10 MG tablet Take 10 mg by mouth daily ferrous sulfate 325 (65 FE) MG EC tablet Take 325 mg by mouth daily withbreakfast 0 heparin 100 UNIT/ML SOLN Infuse 5 ml After dose and as needed to red lumen ifapplicable 450 Syringe 0 insulin lispro (ADMELOG) 100 UNIT/ML injection Inject under the skin 3 timesdaily sliding scale Taking lisinopril (PRINIVIL,ZESTRIL) 5 MG tablet Take 5 mg by mouth daily loratadine (CLARITIN) 10 MG tablet Take 10 mg by mouth daily meropenem (MERREM) 1 g injection Infuse 2gm iv every 8 hours daily until03/21/20 1 each 0 metoclopramide (REGLAN) 10 MG tablet Take 10 mg by mouth 2 (two) times a day nystatin (MYCOSTATIN) powder Apply 1 application topically 2 (two) times a dayas needed (for rash) 2 omeprazole (PRILOSEC) 40 MG capsule Take 40 mg by mouth 2 (two) times a day ondansetron (ZOFRAN-ODT) 4 MG disintegrating tablet Take 4 mg by mouth every 8(eight) hours as needed for nausea ONE TOUCH ULTRA TEST test strip USE TO TEST THREE TIMES A DAY 11 Taking oxyCODONE-acetaminophen (PERCOCET) 5-325 MG per tablet Take 1-2 tablets bymouth every 4 (four) hours as needed Max Daily Amount: 8 tablets 30 tablet 0 pentoxifylline (TRENTAL) 400 MG CR tablet Take 400 mg by mouth 3 (three) timesa day with meals 6 polyethylene glycol (GLYCOLAX) 17 g packet Take 17 g by mouth daily 14 each 5 pregabalin (LYRICA) 150 MG capsule Take 150 mg by mouth 2 (two) times a day2 Sodium Chloride Flush (NORMAL SALINE FLUSH) 0.9 % SOLN injection Infuse 10 mlbefore and after dose and prn 450 Syringe 0 STEGLATRO 15 MG TABS Take 15 mg by mouth daily 2 TRESIBA FLEXTOUCH 200 UNIT/ML SOPN Inject 50 Units under the skin 2 (two)times a day 2 TRULICITY 1.5 MG/0.5ML SOPN Inject 1.5 mg under the skin once a week ergies:Basaglar kwikpen [insulin glargine]; Grapefruit concentrate; and Invokana[canagliflozin]Family Hx:Family HistoryProblem Relation Age of Onset Other Mother 68 more sudden of unknown causes COPD Father 55 Healthy, No Significant History Sister Heart disease Brother Diabetes Brother Healthy, No Significant History Sister Healthy, No Significant History SisterSocial Hx:Social HistoryTobacco Use Smoking status: Current Every Day Smoker Packs/day: 1.00 Years: 35.00 Pack years: 35.00 Types: Cigarettes Smokeless tobacco: Never Used Tobacco comment: Per pt working with PCP for plan in placeSubstance Use Topics Alcohol use: No Drug use: NoReview of Systems:Constitutional: Denies fever, chills, fatigue, and unexpected weight change.HEENT: Denies visual difficulties, hearing is good.Extremities/Musculoskeletal: Denies muscle weakness, back pain, numbness,coolness, parasthesia in bilateral lower extremities.Respiratory: Denies cough, shortness of breath, wheezing, chronic cough orsputum production, no hemoptysis.Cardiovascular: Denies chest pain or pressure, palpitations. No dyspnea onexertion or rest.Gastrointestinal: Denies nausea, vomiting, abdominal pain, diarrhea,constipation or blood in stool or vomit.Genitourinary: Denies dysuria, urgency, frequency, hematuria or difficultyurinating.Skin: Denies current rashes or lesionsNeurological: Denies dizziness, seizures, speech difficulty, weakness,light-headedness, numbness.Endocrine: No thyroid disorder Physical Exam:BP 136/62 (BP Location: Left upper arm, Patient Position: Lying) | Pulse 95 |Temp 98.5 F (Oral) | Resp 18 | Ht 1.626 m (5' 4") | Wt 76.2 kg (168 lb) |SpO2 96% | BMI 28.84 kg/m General Appearance: well appearing 54 years old White or female who isin no acute distress, appears state age.Skin: Warm and dry. Turgor is good, no rashes or lesions are notedHead: Head is normocephalic, atraumaticEyes: pupils are equal, round, reactive to light and accommodation. Extraocularmovements intact, sclerae anicteric, conjunctivae clear.Ears: hearing is intact, external ears normalMouth: Dentition is in good repair, oropharynx is without exudates or lesionsNeck: Trachea is midline. Thyroid is not palpable, no lymphadenopathyChest: chest has symmetric excursionLungs: clear to auscultation and percussion, respiratory effort is good, noadventitious soundsHeart: regular rate and rhythm. No murmurs, gallops or rubsAbdomen: Soft, non-tender, non distended, no masses, no pulsatile masses,positive bowel soundsNeurological: Alert and oriented x 3, speech clear, cranial nerves II-XII aregrossly intact. Sensation is intact.Vascular: Calves are supple without palpable cordsLLE incision C/D/I. Lian intact. Wound vac intact. PT/DP by doppler. Assessment/Plan:54 years old White or female with Post-operative complication[T81.9XXA], being admitted to Brittani Birmingham MD1. Chart reviewed: pt stable2. Pain controlled3. Activity: OOB4. Diet: ADA. Insulin scale5. Left heel infection: PICC in place. Meropenem 2 g IV q8. Wound vac MWF6. Antiemetics prn7. DVT prophylaxis: plavix, hep SC, ambulation8. Disposition: Case management to review tomorrow. Hopefully can dischargetomorrow.Will discuss with Dr Mehta with Brittani Birmingham MD. Signature: JALIL Astudilloate: February 18, 2020Time: 6:14 PM Name Value Range Interpretation Code Description Data Tisha rce(s) Supporting Document(s) ID Date Data Source [id number] 02/28/2020 08:56:49 PM EST [facility] INFORMATIONPatient MRN Name Date of Age Gend*PT [id number] Tatianna Soto 1965 54 years F IPPT Location Admission Date/Time Visit ID Attending [id number] 02/05/20 0417 --- --- EPI ID CSN Admitting Provider [id number] Dain Sanford MD([id number]) [place] [address] OPERATIVE REPORT OPNAME: TATIANNA SOTONaiConcepciónNai#: [id number] #: [id number] ADMISSION DATE: 02/05/2020DOB: 1965 SEX: F PT TYPE: I VascACCT #: [id number] CARE PHYSICIAN: TOM CORONADO-SURBEDATE OF OPERATION: 02/08/2020AMENDED TO CORRECT DATE OF SERVICE. ORIGINAL DICTATION PERFORMED ON02/09/2020 AT 12:00; DIC #[id number] DIAGNOSIS:Protruding sternal wire.POSTOPERATIVE DIAGNOSIS:Protruding sternal wire.ANESTHESIA:General anesthesia.ATTENDING:Dr. Rosalinda Smith MD.ANESTHESIA:Light sedation plus topical injection of the lidocaine and Marcaine.PROCEDURES:Removal of sternal wires.FINDINGS:We removed 10 wires through a small, less than 1 inch incisions.DESCRIPTION OF PROCEDURE:After the patient was brought to the OR, prep and drape was done in routinefashion. The patient received light sedation. We injected the sternalincision in 2 areas with a mix of lidocaine and Marcaine and we made lessthan 1-inch incision in 2 areas in the healed midline incision, carrieddown to sternum and we felt the wires and we identified them, recut with awire cutter and removed. The number of the wires that we removed was 10wires and we made sure that the patient had no pain and we injected thesite with Marcaine, lidocaine at the end to make the postop with no pain.The site was copiously irrigated with antibiotic solution. These 2 siteswere closed from kristin p layer to the skin layer. Skin was closed with 4-0Monocryl, deep layer was closed with Vicryl sutures. Patient tolerated theprocedure very well and was transferred to the recovery room in stablecondition.JEFE Spann Job #: [id number] DOC #: [id number] Name Value Range Interpretation Code Description Data Tisha rce(s) Supporting Document(s) ID Date Data Source [id number] 02/26/2020 10:05:32 PM EST [facility] NT INFORMATIONPatient MRN Name Date of Age Gend*PT [id number] Tatianna Soto 1965 54 years F IPPT Location Admission Date/Time Visit ID Attending [id number] 02/05/20 0417 --- --- EPI ID CSN Admitting Provider [id number] Dain Sanford MD([id number]) [place] [address] OPERATIVE REPORT OPNAME: TATIANNA SOTO#: [id number] #: [id number] ADMISSION DATE: 02/05/2020DOB: 1965 SEX: F PT TYPE: I VascACCT #: [id number] CARE PHYSICIAN: TOM CORONADO-VENKATABEDATE OF OPERATION: 02/09/2020PREOPERATIVE DIAGNOSIS:Protruding sternal wire.POSTOPERATIVE DIAGNOSIS:Protruding sternal wire.ANESTHESIA:General anesthesia.ATTENDING:Dr. Rosalinda Smith MD.ANESTHESIA:Light sedation plus topical injection of the lidocaine and Marcaine.PROCEDURES:Removal of deep sternal wires.FINDINGS:We removed 10 wires through a small, less than 1 inch incisions.DESCRIPTION OF PROCEDURE:After the patient was brought to the OR, prep and drape was done in routinefashion. The patient received light sedation. We injected the sternalincision in 2 areas with a mix of lidocaine and Marcaine and we made lessthan 1-inch incision in 2 areas in the healed midline incision, carrieddown to sternum and we felt the wires and we identified them, recut with awire cutter and removed. The number of the wires that we removed was 10wires and we made sure that the patient had no pain and we injected thesite with Marcaine, lidocaine at the end to make the postop with no pain.The site was copiously irrigated with antibiotic solution. These 2 siteswere closed from deep layer to the skin layer. Skin was closed with 4-0Monocryl, deep layer was closed with Vicryl sutures. Patient tolerated theprocedure very well and was transferred to the recovery room in stablecondition.LASHON Spann/CARMINE Job #: [id number] DOC #: [id number] Name Value Range Interpretation Code Description Data Tisha rce(s) Supporting Document(s) ID Date Data Source [id number] 02/23/2020 10:31:53 AM EST [facility] INFORMATIONPatient MRN Name Date of Age Gend*PT [id number] Tatianna Soto 1965 54 years F OBSPT Location Admission Date/Time Visit ID Attending [id number] 02/18/20 1640 --- --- EPI ID CSN Admitting Provider [id number] Brittani Birmingham MD([id number])Surgical Discharge SummaryTatianna SotoMRN: [id number] date: 02/18/2020Admitting Physician: TIMA Lawrenceischarge date and time:Discharge Orders Placed(From admission, onward) Start Ordered 02/20/202024 Discharge patient OnceComments: Pt leaving AMAExpected Discharge Date: 02/20/20Discharge Disposition: Home or Self Care 02/20/202034Discharge Physician: Norman Lemsu Diagnosis: Osteomyelitis of footSecondary Diagnoses:Active Hospital Problems Diagnosis Date Noted Osteomyelitis of foot 02/07/2020Resolved Hospital ProblemsNo resolved problems to display.Discharge Medications:Your medication listSTART taking these medications Instructions Last Dose Given Morning Afternoon Evening Bedtime As Neededciprofloxacin 250 MG tabletCommonly known as: CIPRO Take 1 tablet (250 mg total) by mouth 2 (two) times a day for 14 daysmetroNIDAZOLE 250 MG tabletCommonly known as: FLAGYL Take 2 tablets (500 mg total) by mouth 3 (three) times a day for 14 daysCONTINUE taking these medications Instructions Last Dose Given Morning Afternoon Evening Bedtime As NeededADMELOG 100 UNIT/ML injectionGeneric drug: insulin lispro Inject under the skin 3 times daily sliding scalealbuterol 108 (90 Base) MCG/ACT inhalerCommonly known as: PROVENT IL HFA;VENTOLIN HFA Inhale 2 puffs every 4 (four) hours as needed for shortness of breathatorvastatin 80 MG tabletCommonly known as: LIPITOR Take 80 mg by mouth dailyB-D INS SYR ULTRAFINE 1CC/31G 31G X 5/16" 1 ML MiscGeneric drug: Insulin Syringe-Needle U-100 USE THREE TIMES A DAYB-D ULTRAFINE III SHORT PEN 31G X 8 MM MiscGeneric drug: Insulin Pen Needle USE ONE PEN NEEDLE EVERY DAY FOR TOUEO PENbisacodyl 10 MG suppositoryCommonly known as: DULCOLAX Insert 1 suppository (10 mg total) into the rectum dailyBREO ELLIPTA 200-25 MCG/INH AepbGeneric drug: Fluticasone Furoate-Vilanterol Inhale 1 puff dailybuPROPion 150 MG 24 hr tabletCommonly known as: WELLBUTRIN XL Take 150 mg by mouth dailyclopidogrel 75 MG tabletCommonly known as: PLAVIX Take 75 mg by mouth dailycyclobenzaprine 5 MG tabletCommonly known as: FLEXERIL Take 5 mg by mouth 2 (two) times a day as needed for muscle spasmsDAILY CHE per tablet Take 1 tablet by mouth dailydocusate sodium 100 MG capsuleCommonly known as: COLACE Ta ke 200 mg by mouth 2 (two) times a day as needed for constipationescitalopram 10 MG tabletCommonly known as: LEXAPRO Take 10 mg by mouth dailyferrous sulfate 325 (65 FE) MG EC tablet Take 325 mg by mouth daily with breakfastlisinopril 5 MG tabletCommonly known as: PRINIVIL,ZESTRIL Take 5 mg by mouth dailyloratadine 10 MG tabletCommonly known as: CLARITIN Take 10 mg by mouth dailymetoclopramide 10 MG tabletCommonly known as: REGLAN Take 10 mg by mouth 2 (two) times a daynormal saline flush 0.9 % Soln injection Infuse 10 ml before and after dose and prnnystatin powderCommonly known as: MYCOSTATIN Apply 1 application topically 2 (two) times a day as needed (for rash)omeprazole 40 MG capsuleCommonly known as: PriLOSEC Take 40 mg by mouth 2 (two) times a dayondansetron 4 MG disintegrating tabletCommonly known as: ZOFRAN-ODT Take 4 mg by mouth every 8 (eight) hours as needed for nauseaONE TOUCH ULTRA TEST test stripGeneric drug: glucose blood USE TO TEST THREE TIMES A DAYoxyCODONE-acetaminophen 5-325 MG per tabletCommonly known as: PERCOCET Take 1-2 tablets by mouth every 4 (four) hours as needed Max Daily Amount: 8tabletspentoxifylline 400 MG CR tabletCommonly known as: TRENTal Take 400 mg by mouth 3 (three) times a day with mealspolyethylene glycol 17 g packetCommonly known as: GLYCOLAX Take 17 g by mouth dailypregabalin 150 MG capsuleCommonly known as: LYRICA Take 150 mg by mouth 2 (two) times a daySTEGLATRO 15 MG TabsGeneric drug: Ertugliflozin L-PyroglutamicAc Take 15 mg by mouth dailyTRESIBA FLEXTOUCH 200 UNIT/ML SopnGeneric drug: Insulin Degludec Inject 50 Units under the skin 2 (two) times a dayTRULICITY 1.5 MG/0.5ML SopnGeneric drug: Dulaglutide Inject 1.5 mg under the skin once a week on SundaysTOP taking these medicationsChlorhexidine Gluconate (Dressing) MiscCommonly known as: BIOPATCH PROTECTIVE DISK/CHGheparin 100 UNIT/ML Solnmeropenem 1 g injectionCommonly known as: MERREMWhere to Get Your MedicationsThese medications were sent to [phone] - [place], [place] - [address] [place] [address] ciprofloxacin 250 MG tablet metroNIDAZOLE 250 MG tabletIndication for Admission: 54-year-old female with extensive peripheral vasculardisease and poorly healing heel ulcers, she recently underwent RIGHT iliofemoralendarterectomy with iliac to profunda bypass, jump graft from ilioprofundabypass to BK popliteal artery on 02/06/2020, followed by LEFT femoral-poplitealbypass with heel debridement on 02/12/[address] Sanford. She was followedby Infectious Disease and recommended for 6 weeks of IV antibiotics Meropenum(end 03/21/2020) for OM of bilateral heel ulcers with cultures +Pseudomonas andfinegoldia in the left foot, peptostreptococcus from the right foot. She wasdischarged to home on 02/16/2020 with Home Care and [facility] infusion services, [facility] agreed to assist with antibiotics administration. Wound vac wasdelivered to her home for the left heel and would be changed three times weeklyby [facility].Hospital Course & Complications: She was readmitted on 02/18/2020 because it wasdiscovered that she was only receiving IV antibiotics once a day rather than 3times a day as pres cribed. Home care nurse referred her to [facility],she was then transferred to [facility] for admission to sort out the infusion issues.While hospitalized, she was continued on IV meropenem as originally prescribedby infectious disease via right arm PICC. Her left heel wound VAC was alsochanged on 02/19/2020.Patient told CCM that she was struggling at home with ADLs, ambulation, mealpreparation. She was incontinent and her children unable to help her becausethey work. Patient requested STR placement. [facility] accepted thepatient, but her insurance does not par and all other local facil ities wouldneed to decline the patient before she could be accepted to [facility]. Asof 02/20/2020, [facility]During the evening of 02/20/2020 patient informed nursing that she wanted to haveher RUE PICC removed and leave the hospital AMA. I spent approximately 30minutes discussing this decision with the patient, explaining in detail andrisks of leaving AMA and interrupting her IV antibiotic plan, discontinuing thewound vac to her left heel, including worsening infection, sepsis, limb loss,and . I explained to her that she was so close to getting STR placementand that is likely that placement burn on 02/21/2020. Patient was adamant thatshe was not staying in the hospital any longer her ride was already on the way.AMA form was completed, her RUE PICC was removed, the wound vac dressing fromthe left heel was removed and the wound was washed and re-dressed with salinewet to dry dressing. I explored oral antibiotic options with pharmacy based onher wound cultures and they recommended high dose PO cipro and flagyl for 2weeks. The patient agreed to take the PO antibiotics. She also agreed that shewould follow-up with Dr. Sanford and that [facility] be [facility] as soon as possible.She was also receptive to continuing the wound VAC to her left heel Home carese rvices would continue to see her. She brought her home wound vac pump homewith her and she has the unopened dressing supplies from [facility] in her home.Because I could not give her resumption of home care services, I could notdischarge her with a wound VAC in place. The time of this writing, ARY Robertsll attempt to resume patient's home care services for continuation of leftheel wound vac, but she may be refused because she left AMA.All of the patient's questions were answered, Dr. Sanford was notifiedPast Medical History:Past Medical History:Diagnosis Date Arthritis Chronic GERD controlled on PPI Claudication of both lower extremities claims she has never had official testing or deeper evaluation into this as of12/27/2015 COPD (chronic obstructive pulmonary disease) Coronary artery bypass graft 12/2015 Quintuple coronary bypass; KULKARNI to LAD, triple sequential graft to diagonal,OM1 and OM2 and single saphenous vein graft to distal RCA Diabetic neuropathy DM2 (diabetes mellitus, type 2) >= 20 yr Echocardiogram 2016 Ejection Fraction is 50 %. Apical anterior wall hypokinesis. Aoritc rootsclerosis/calcification with a round calcified nodule in the aortic wall ofunceratin etiology Echocardiogram 07/05/2019 Normal LV size with borderline LVH and overall mildly reduced left ventricularsystolic function. There is akinesis of apical segment, distal septal anddistal anterior wall. Overall estimated LVEF 45 to 50%. Grade 1 diastolicdysfunction. No significant valvular disease. Likely normal central venouspressure. Unable to estimate pulmonary artery pressure Heavy cigarette smoker (20-39 per day) since 18 yo HLD (hyperlipidemia) Hx of Diabetic coma 2016 unresponsive for while - ended up even having PEG/trach for while Non-STEMI (non-ST elevated myocardial infarction) 2016Surgical Procedures:* No surgery found *Significant Diagnostic Studies:LabsTreatments:Left heel wound VACIV antibiotics meropenemDischarge Exam:Vitals: Temp: [98 F-98.7 F] 98.7 FHeart Rate: [85-93] 89Resp: [18] 18BP: (108-160)/(55-72) 114/55General appearance: Alert and oriented x3, fully dressed sitting upright in bedNeurologic:Cranial nerves: II-XII grossly intact, movement and sensation grosslynormal in BUE and BLE.Lungs: Clear to auscultation bilaterally anterior/post; no rhonchi, rales,wheezing.Heart: Regular rate and rhythm, no murmur, rub or gallop.Abdomen: Soft, non-tender; normoactive bowel sounds in all 4 quadrants.Extremities: Right groin and medial leg incision healing, open to air.Left groin incision healing, slightly moist without drainage.LLE incisions open to air, no drainage. Lian intact.Left heel wound vac dressing removed, beefy red wound base, no skin edgenecrosis, no malodor. Bone exposed in wound bed. Scant serosanguinous drainage.Pulses: palpable DP pusle BLESkin: Skin color, texture, and turgor otherwise normal.Items needing special attention:[facility] will attempt to continue Home Care services for patients left heel woundvac. She brought the home pump with her upon discharge. She has an open woundVAC supplies at home. She was sent home with dressing supplies for suwlejqvj-la-wuw and she agreed that she knows how to perform this dressing.She was prescribed PO cipro and flagyl for 2 weeks, she agreed to be seen by or Infectious Disease prior to the end of this regimen in case itshould be continued.She agreed to make an appointment with her Wound Care Center to be seen as soonas possible.Discharged Condition:fairDisposition: Home or Self Care left AMASignature: Don Lemus: February 20, 2020Time: 8:36 PM Name Value Range Interpretation Code Description Data Tisha rce(s) Supporting Document(s) ID Date Data Source [id number] 02/20/2020 10:07:00 PM EST [facility]) Name Value Range Interpretation Code Description Data Tisha rce(s) Supporting Document(s) Laboratory test finding (navigational concept) 192 mg/dL 70-99 [facility] ([facility]) PERFORMED BY [facility] CLINICAL STAFF ID Date Data Source [id number] 02/20/2020 05:08:12 PM EST [facility] Name Value Range Interpretation Code Description Data Tisha rce(s) Supporting Document(s) POC NOVA GLU 192 mg/dL (70-99) H [facility] [place] PERFORMED BY [facility] CLINICAL STAFF ID Date Data Source [id number] 02/20/2020 11:31:29 AM EST [facility] Name Value Range Interpretation Code Description Data Tisha rce(s) Supporting Document(s) POC NOVA GLU 206 mg/dL (70-99) H [facility] [place] PERFORMED BY [facility] CLINICAL STAFF ID Date Data Source [id number] 02/20/2020 10:38:04 AM EST [facility] Name Value Range Interpretation Code Description Data Tisha rce(s) Supporting Document(s) POC NOVA GLU 254 mg/dL (70-99) H [facility] [place] PERFORMED BY [facility] CLINICAL STAFF ID Date Data Source [id number] 02/20/2020 09:00:00 AM EST [facility]) Name Value Range Interpretation Code Description Data Tisha rce(s) Supporting Document(s) Erythrocytes [#/volume] in Blood by Automated count 3.69 10*6/uL 4.00 -5.40 [facility] ([facility]) Leukocytes [#/volume] in Blood by Automated count 8.6 10*3/uL 4.1-11. 0 [facility] ([facility]) Hematocrit [Volume Fraction] of Blood by Automated count 30.2 % 3 6.0-47.0 [facility] ([facility]) PERFORMED AT [address] [place] [address] [address] [address] Hemoglobin [Mass/volume] in Blood 10.2 g/dL 12.0-16.0 [facility] ([facility]) Erythrocyte mean corpuscular volume [Entitic volume] by Auto mated count 81.9 fL 80.0-95.0 [facility] ([facility] ) Erythrocyte distribution width [Ratio] by Automated count 16.4 % 10.5-14.5 [facility] ([facility]) Erythrocyte mean corpuscular hemoglobin [Entitic mass] by Automated count 27.8 pg 27.0-32.0 [facility] ([facility]) Erythrocyte mean corpuscular hemoglobin concentration [Mass/volume] by Automated count 33.9 g/dL 32.0-36.0 [facility] ([facility]) Platelet mean volume [Entitic volume] in Blood by Sandip-Vesna 7.7 fL 7.1-10.7 [facility] ([facility]) Platelets [#/volume] in Blood by Automated count 430 10*3/uL 150-450 [facility] ID Date Data Source [id number] 02/20/2020 08:26:32 AM EST [facility] Name Value Range Interpretation Code Description Data Tisha rce(s) Supporting Document(s) POC NOVA GLU 170 mg/dL (70-99) H [facility] PERFORMED BY [facility] CLINICAL STAFF ID Date Data Source [id number] 02/20/2020 07:24:00 AM EST [facility]) Name Value Range Interpretation Code Description Data Tihsa rce(s) Supporting Document(s) Laboratory test finding (navigational concept) Laboratory test result [facility] ([facility]) THIS ASSAY AMPLIFIES AND DETECTS THE TAR GET RNA USING REAL-TIME PCR. NEGATIVE 2019_NCOV RT-PCR RESULTS DO NOT PRECLUDE 2019_NCOV INFECTION AND SHOULD NOT BE USED THE SOLE BASIS FOR PATIENT MANAGEMENT DECISIONS. Specimen Description Laboratory test result [facility] ([facility]) Laboratory comment [Text] in Report Narrative Laboratory test result [facility] ([facility]) THE [place] FDA HAS MADE THIS TEST AVAILABL E UNDER AN EMERGENCY USE AUTHORIZATION (EUA) FOR THE DETECTION AND/OR DIAGNOSIS OF THE VIRUS THAT CAUSES COVID-19. EMAILED TO [facility] IC AT [id number] on [phone] Employed In [facility] Laboratory test result [facility] ([facility]) Symptomatic Laboratory test result [facility] T ([facility]) First Test Laboratory test result [facility] ([facility]) Illness or injury onset date and time Laboratory test result [facility] ([facility]) Hospitalized Laboratory test result [facility] NT ([facility]) Icu Laboratory test result [facility] ([facility]) Laboratory test result [facility] ([facility]) Congrfranciscan healthte Care Set Laboratory test result [facility] ([facility]) ID Date Data Source [id number] 02/20/2020 04:00:51 AM EST [facility] Name Value Range Interpretation Code Description Data Tisha rce(s) Supporting Document(s) WBC 8.6 10*3/uL (4.1-11.0) [facility] [place] RBC 3.69 10*6/uL (4.00-5.40) L [facility] [place] HGB 10.2 g/dL (12.0-16.0) L [facility] [place] HCT 30.2 % (36.0-47.0) L [facility] [place] PERFORMED AT [address] [place] [address] [address] [place] [address] MCV 81.9 fL (80.0-95.0) [facility] MCH 27.8 pg (27.0-32.0) [facility] MCHC 33.9 g/dL (32.0-36.0) [facility] RDW 16.4 % (10.5-14.5) H [facility] PLT 430 10*3/uL (150-450) [facility] MPV 7.7 fL (7.1-10.7) [facility] ID Date Data Source [id number] 02/20/2020 12:00:00 AM EST [facility] Name Value Range Interpretation Code Description Data Tisha rce(s) Supporting Document(s) SARS coronavirus 2 RNA [Presence] in Res piratory specimen by CHLOE with probe detection [facility] This lab was reported by [facility]. ID Date Data Source [id number] 02/20/2020 06:30:58 AM EST [facility] Name Value Range Interpretation Code Description Data Tisha rce(s) Supporting Document(s) SPECIMEN DESCRIPTION [facility] COVID19 RESULT (NDET) [facility] THIS ASSAY AMPLIFIES AND DETECTSTHE TARG ET RNA USING REAL-TIME PCR.NEGATIVE 2019_NCOV RT-PCR RESULTS DONOT PRECLUDE 2019_NCOV INFECTION ANDSHOULD NOT BE USED THE SOLE BASISFOR PATIENT MANAGEMENT DECISIONS. COMMENT [facility] UNDER AN EMERGENCY USE AUTHORIZATION(EUA ) FOR THE DETECTION AND/OR DIAGNOSISOF THE VIRUS THAT CAUSES COVID-19.EMAILED TO [facility] IC AT 0624 ON [phone] FIRST TEST [facility] SYMPTOMATIC [facility] DATE OF SYMPT ONSET [facility] HOSPITAL[facility]ED [facility] [place] [facility] CON[facility]REG[facility] CARE SET [facility] ID Date Data Source [id number] 02/19/2020 06:08:42 PM EST [facility] Name Value Range Interpretation Code Description Data Tisha rce(s) Supporting Document(s) POC NOVA GLU 163 mg/dL (70-99) H [facility] PERFORMED BY [facility] CLINICAL STAFF ID Date Data Source [id number] 02/19/2020 01:40:30 PM EST [facility] INFORMATIONPatient MRN Name Date of Age Gend*PT [id number] Tatianna Soto 1965 54 years F IPPT Location Admission Date/Time Visit ID Attending [id number] 02/05/20 0417 --- --- EPI ID CSN Admitting Provider [id number] Dain Sanford MD([id number])Surgical Discharge SummaryTatianna SotoMRN: [id number] date: 02/05/2020Admitting Physician: TIMA Borregoischarge date and time:Discharge Orders Placed(From admission, onward) Start Ordered 02/16/20 1127 Discharge patient OnceExpected Discharge Date: 02/16/20Expected Discharge Time: MiddayDischarge Disposition: Home or Self Care 02/16/20 1145Discharge Physician: Norman Matamoros Diagnosis: Ischemia of right lower extremitySecondary Diagnoses:Active Hospital Problems Diagnosis Date Noted Pseudomonas aeruginosa infection Osteomyelitis of foot 02/07/2020 Ischemia of right lower extremity 02/06/2020 COPD (chronic obstructive pulmonary disease) Protruding sternal wires 01/24/2020 Added automatically from request for surgery [id number] Peripheral vascular disease 11/20/2019 Coronary artery disease involving [place] coronary artery of [place] heartwithout angina pectoris 05/11/2019 Heavy cigarette smoker (20-39 per day) since 18 yo HLD (hyperlipidemia) Type 2 diabetes mellitus with circulatory disorder, with long-term current useof insulinResolved Hospital ProblemsNo resolved problems to display.Discharge Medications:Your medication listSTART taking these medications Instructions Last Dose Given Morning Afternoon Evening Bedtime As Neededbisacodyl 10 MG suppositoryCommonly known as: DULCOLAX Insert 1 suppository (10 mg total) into the rectum daily02/16Chlorhexidine Gluconate (Dressing) MiscCommonly known as: BIOPATCH PROTECTIVE DISK/CHG Apply one patch weekly with dressing change and prnDAILY CHE per tabletStart taking on: February 17, 2020 Take 1 tablet by mouth daily02/16heparin 100 UNIT/ML Soln Infuse 5 ml After dose and as needed to red lumen if applicablemeropenem 1 g injectionCommonly known as: MERREM Infuse 2gm iv every 8 hours daily until 03/21/2010normal saline flush 0.9 % Soln injection Infuse 10 ml before and after dose and prnoxyCODONE-acetaminophen 5- 325 MG per tabletCommonly known as: PERCOCET Take 1-2 tablets by mouth every 4 (four) hours as needed Max Daily Amount: 8tabletspolyethylene glycol 17 g packetCommonly known as: GLYCOLAX Take 17 g by mouth daily02/16CHANGE how you take these medications Instructions Last Dose Given Morning Afternoon Evening Bedtime As NeededASPIRIN ADULT 325 MG tabletGeneric drug: aspirinWhat changed: when to take this Take 1 tablet (325 mg total) by mouth once for 1 dose02/16CONTINUE taking these medications Instructions Last Dose Given Morning Afternoon Evening Bedtime As NeededADMELOG 100 UNIT/ML injectionGeneric drug: insulin lispro Inject under the skin 3 times daily sliding scale02/15albuterol 108 (90 Base) MCG/ACT inhalerCommonly known as: PROVENTIL HFA;VENTOLIN HFA Inhale 2 puffs every 4 (four) hours as needed for shortness of breathatorvastatin 80 MG tabletCommonly known as: LIPITOR Take 80 mg by mouth daily02/16B-D INS SYR ULTRAFINE 1CC/31G 31G X 5/16" 1 ML MiscGeneric drug: Insulin Syringe-Needle U-100 USE THREE TIMES A DAY-D ULTRAFINE III SHORT PEN 31G X 8 MM MiscGeneric drug: Insulin Pen Needle USE ONE PEN NEEDLE EVERY DAY FOR TOUEO PEN02/16BREO ELLIPTA 200-25 MCG/INH AepbGeneric drug: Fluticasone Furoate-Vilanterol Inhale 1 puff daily02/16buPROPion 150 MG 24 hr tabletCommonly known as: WELLBUTRIN XL Take 150 mg by mouth daily02/16clopidogrel 75 MG tabletCommonly known as: PLAVIX Take 75 mg by mouth daily02/16cyclobenzaprine 5 MG tabletCommonly known as: FLEXERIL Take 5 mg by mouth 2 (two) times a day as needed for muscle spasmsdocusate sodium 100 MG capsuleCommonly known as: COLACE Take 200 mg by mouth 2 (two) times a day as needed for constipationescitalopram 10 MG tabletCommonly known as: LEXAPRO Take 10 mg by mouth daily02/16ferrous sulfate 325 (65 FE) MG EC tablet Take 325 mg by mouth daily with ucutbuatm86/31lisinopril 5 MG tabletCommonly known as: PRINIVIL,ZESTRIL Take 5 mg by mouth daily02/16loratadine 10 MG tabletCommonly known as: CLARITIN Take 10 mg by mouth daily02/16metoclopramide 10 MG tabletCommonly known as: REGLAN Take 10 mg by mouth 2 (two) times a daynystatin powderCommonly known as: MYCOSTATIN Apply 1 application topically 2 (two) times a day as needed (for rash)omeprazole 40 MG capsuleCommonly known as: PriLOSEC Take 40 mg by mouth 2 (two) times a dayondansetron 4 MG disintegrating tabletCommonly known as: ZOFRAN- ODT Take 4 mg by mouth every 8 (eight) hours as needed for nauseaONE TOUCH ULTRA TEST test stripGeneric drug: glucose blood USE TO TEST THREE TIMES A DAY02/15pentoxifylline 400 MG CR tabletCommonly known as: TRENTal Take 400 mg by mouth 3 (three) times a day with meals02/15pregabalin 150 MG capsuleCommonly known as: LYRICA Take 150 mg by mouth 2 (two) times a dayTEGLATRO 15 MG TabsGeneric drug: Ertugliflozin L-PyroglutamicAc Take 15 mg by mouth daily02/16TRESIBA FLEXTOUCH 200 UNIT/ML SopnGeneric drug: Insulin Degludec Inject 50 Units under the skin 2 (two) times a dayTRULICITY 1.5 MG/0.5ML SopnGeneric drug: Dulaglutide Inject 1.5 mg under the skin once a week on taking these medicationsHYDROcodone-acetaminophen 5-325 MG per tabletCommonly known as: NORCOWhere to Get Your MedicationsThese medications were sent to [id number] - [place] [address] Chlorhexidine Gluconate (Dressing) Misc heparin 100 UNIT/ML Soln meropenem 1 g injection normal saline flush 0.9 % Soln injectionThese medications were sent to [facility] [place], [place] - [address] [place] [address] ASPIRIN ADULT 325 MG tablet bisacodyl 10 MG suppository DAILY CHE per tablet oxyCODONE-acetaminophen 5-325 MG per tablet polyethylene glycol 17 g packetIndication for Admission: Right lower extre mity critical limb ischemia with restpainHospital Course & Complications: The patient is a 54-year-old female who wasadmitted to the hospital on 05 February 2020 with a diagnosis of right lowerextremity critical limb ischemia with rest pain. She went to the operating roomthe same day undergoing a right common femoral artery endarterectomy with rightiliac artery to profunda bypass with jump graft from the right iliofemoralbypass to below the knee pop bypass and ligation of the SFA. The patientremained stable throughout the procedure. She was extubated transferred to PACUand subsequently transferred to the floor. She remained stable on the floor.On postop day 1 it was noted that the patient had a sore to the right lateralaspect of her foot that had an odor present. She was started on vancomycin andZosyn. In the meantime she also had a heel ulceration on the left foot. MRIwas ordered to both the left and the right foot.MRI revealed on the right foot and osteomyelitis present. Infectious diseasewas consulted. The patient did eventually go for her left lower extremity MRIbut had difficulty having it done as she was physically uncomfortable with thestudy. She was medicated for this. Dr. Sanford felt that she needed to haveiliac artery angioplasty and a left leg bypass. The patient was consideringthis procedure. On February 07 the patient also had a procedure with sternalwire rem oval which had previously been scheduledOn 08 February the patient wentto the interventional radiology department where she had a left common femoralartery ultrasound-guided access with aortogram of the right lower extremity andthe left leg runoff. She tolerated the procedure well. Angiogram revealed thatthere was no profundofemoral on the right which will ultimately cause loss ofthe limb in the future if the bypass fails and the left leg stent is occluded itwas important for the patient to stay and have a left leg femoropoplitealbypass. This was scheduled for 02/11 along with debridement of the left heel.The patient went to the operating room on February 11 undergoing a left heeldebridement with wound VAC application and a left fem-tib bypass. She remainedstable throughout the procedure. Over the next few days the patient worked withphysical therapy, had wound VAC change and antibiotics. Pain control as well.On February 15 the patient will be discharged home with IV antibiotics for 6weeks. She will have visiting nurses for her wound vacs. She will follow-upwith infectious disease, Dr. Sanford and Dr. Kelly him.Past Medical History:Past Medical History:Diagnosis Date Arthritis Chronic GERD controlled on PPI Claudication of both lower extremities claims she has never had official testing or deeper evaluation into this as of12/27/2015 COPD (chronic obstructive pulmonary disease) Coronary artery bypass graft 12/2015 Quintuple coronary bypass; KULKARNI to LAD, triple sequential graft to diagonal,OM1 and OM2 and single saphenous vein graft to distal RCA Diabetic neuropathy DM2 (diabetes mellitus, type 2) >= 20 yr Echocardiogram 2016 Ejection Fraction is 50 %. Apical anterior wall hypokinesis. Aoritc rootsclerosis/calcification with a round calcified nodule in the aortic wall ofunceratin etiology Echocardiogram 07/05/2019 Normal LV size with borderline LVH and overall mildly reduced left ventricularsystolic function. There is akinesis of apical segment, distal septal anddistal anterior wall. Overall estimated LVEF 45 to 50%. Grade 1 diastolicdysfunction. No significant valvular disease. Likely normal central venouspressure. Unable to estimate pulmonary artery pressure Heavy cigarette smoker (20-39 per day) since 18 yo HLD (hyperlipidemia) Hx of Diabetic coma 2016 unresponsive for while - ended up even having PEG/trach for while Non-STEMI (non-ST elevated myocardial infarction) 2016Surgical Procedures:Procedure(s):DEBRIDEMENT, WOUND HEEL, LEFT WITH WOUND VAC APPLICATION (Left)CREATION, BYPASS, ARTERIAL, FEMORAL TO POPLITEAL, LEFT (Left)Significant Diagnostic Studies:[address] [address] Name: Tatianna MccarthyB: 1965Sex: FOrdering Provider: VIC FLANNERYuthorizing Prov: VIC Lozadaferjudy Provider:Procedure Performed: MRI LOW EXT NO JNT WO CONTRAST LEFTExam Date: 02/08/2020 15:20MRN: [id number] Number: [id number] Class: PROCEDURE INFORMATION:Exam: MR Left Lower Extremity Other Than Joint Without Contrast; FootExam date and time: 02/08/2020 3:20 PMAge: 54 years oldClinical indication: Other: Osteomyelitis suspected, foot swelling, diabetes TECHNIQUE:Imaging protocol: MR of the Left lower extremity without contrast. Exam focusedon the foot. COMPARISON:No relevant prior studies available. FINDINGS:Bones and cartilage: There is a large area of exposed bone at the medial andmedial plantar posterior calcaneus. There is overlying periosteal reaction andcortical irregularity, and underlying marrow edema with increased T2 andsmaller amount of intermediately decreased T1 weighted signal concerning forosteomyelitis. There may be a component of bone resorption at theposterior/medial/plantar aspect of the calcaneus. There is no acute fracture.No dislocation. Minimal degenerative change at the tibiotalar and subtalarjoints as well as in the midfoot. Mild degenerative change and small amount ofmarrow edema medial hallux sesamoid. LIGAMENTS:Lisfranc ligament: Lisfranc ligament is intact. Soft tissues: Very large area of ulceration or ulceration and debridementtracking down to bone at the medial and medial plantar posterior calcaneus inthe region measuring up to 3.8 cm dorsal to plantar by up to 1.3 cm inthickness and up to 4.7 cm proximal to distal. Underlying granulation tissueand surrounding cellulitis. Cellulitis at the medial and plantar aspects of thehindfoot. Small area of suspected adventitial bursitis plantar to the 5thmetatarsal head. No tendon tear is seen.Plantar fascia: There is tearing of the proximal central cord of the plantarfascia, full-thickness in the medial half where the full-thickness soft tissueloss is present. The remainder of the central cord of the plantar fascialaterally as well as the lateral cord are intact but surrounded by edema. Thereis diffuse muscle edema with minimal diffuse fatty muscle atrophy. No drainablefluid collection or evidence of abscess. IMPRESSIONIMPRESSION:1. Very large area of ulceration or ulceration in debridement with soft tissueloss tracking down to bone at the medial and medial plantar posteriorcalcaneus, and findings concerning for osteomyelitis in the underlyingcalcaneus. Associated granulation tissue at the deep margin of the large areaof soft tissue loss, and surrounding cellulitis.2. Full-thickness tear of the medial half of the proximal central cord of theplantar fascia in the area of soft tissue loss and exposed bone. More lateralfibers are intact.3. Small area of suspected adventitial bursitis plantar to the 5th metatarsalhead.4. No evidence of drainable abscess.5. Diffuse muscle edema with minimal diffuse fatty muscle atrophy. Findingsmay reflect denervation change and atrophy, although minimal multifocalmyositis could also be present. Report electronically signed by: ANDRE ROLDAN MD on 02/08/2020 16:32:59St. [address] [address]Wdspylc Name: Tatianna MccarthyB: 1965Sex: FOrdering Provider: VIC FLANNERYuthorizing Prov: VIC Castro Provider:Procedure Performed: MRI LOW EXT NO JNT WO CONTRAST RIGHTExam Date: 02/06/2020 20:23MRN: [id number] Number: [id number] Class: PROCEDURE INFORMATION:Exam: MR Right Lower Extremity Other Than Joint Without Contrast; FootExam date and time: 02/06/2020 8:23 PMAge: 54 years oldClinical indication: Cellulitis; Toes; Right; Additional info: Osteomyelitissuspected, foot swelling, diabetic TECHNIQUE:Imaging protocol: MR of the Right lower extremity without contrast. Examfocused on the foot. COMPARISON:No relevant prior studies available. 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 There are residual phalanges of the 5th digit with edema inthe proximal phalanx. There is also bone marrow edema in the 4th metatarsalhead and base of the 4th proximal phalanx. Soft tissues: There is soft tissue swelling of the lateral forefoot. There isan apparent ulceration of the lateral forefoot. Intramuscular edema may besecondary to myositis or neuropathy. IMPRESSIONIMPRESSION:1. Cellulitis of the lateral forefoot with an apparent ulceration.2. 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 There is edemawithin the 5th metatarsal stump on T1 and T2 weighted images and withosteomyelitis. There is also edema in the 5th proximal phalanx stint withosteomyelitis.3. There is edema in the 4th metatarsal head and 4th proximal phalanxconsistent with osteomyelitis. Report electronically signed by: ALEXANDRO FARR MD on 02/06/2020 22:43:[address] [address]Pdjjbag Name: TATIANNA SOTODONALD: 1965Sex: FOrdering Provider: EMIL Caruso Prov: EMIL Felix Provider:Procedure Performed: CT ANGIOGRAM ABDOMINAL AORTA AND BILATERAL RUNOFFExam Date: 02/05/2020 09:25MRN: [id number] Number: [id number] Class: InpatientAccount #: [id number] Reason for Exam: Arterial embolism, lower extremity Technique: Helical axial images were obtained during the administration 120ml ofIsovue 370 IV contrast.One or more of the following dose reduction techniqueswere utilized; automated exposure control, dose modulation, technique adjustmentbased on patient size and iterativereconstruction algorithms. Maximum Intensity Projections (MIP) and/or othermultiplanar images images were created and reviewed. Comparison: CT angiogram thorax dated December 07, 2019. Findings: Minimal bibasilar atelectasis. Visualized lung bases otherwise clear.Sternotomy wires. No pericardial effusion. Liver, gallbladder, and pancreas appear unremarkable. There are tiny roundedhypodensities seen within the spleen anteriorly to small to characterize butlikely represent cysts. Again seen is a left adrenal nodule measuring 1.5 cm onprior study dated December 07, 2019 this measured 1.5 cm unchanged. Slightnodularity to the right adrenal gland unchanged. There is decreased perfusioninvolving the lower pole right kidney anteriorly which likely represents oldinfarct. Tiny punctate nonobstructive renal calculi seen bilaterally for exampleimage #131 on the right measuring 2 to 3 mm. No hydronephrosis seen on eitherside. Right renal cysts. No enhancing renal mass. Bladder is distended and lobulated. Uterus is present. Visualized appendixappears unremarkable. No abnormally distended loops of small or large jacquelyn wel areseen. No free air or abnormal fluid collections. No focal inflammatory changes.Degenerative changes lumbar spine. The abdominal has a normal course and caliber without aneurysmal dilatation.Di ffuse vascular calcifications. Mild stenosis at the origin of the celiac axisand SMA artery origin. Right renal artery is small with a moderate stenosis atits origin. Left renal artery appears unremarkable. TREVON is patent. On the right side there is a stent seen in the common iliac artery extendinginto the external iliac artery which is patent. There is a mild stenosis at thedistal end of the stent. High-grade stenosis or short segment occlusioninvolving the internal iliac artery. Contrast is seen in the internal iliacartery more distally with additional areas of high-grade stenosis. Calcifiedplaque seen in the common femoral artery with mild stenosis. There is a stentseen in the superficial femoral artery which is occluded. This extends from theupper thigh to just above the knee joint. There is contrast ossification of thepopliteal artery. Trifurcation. Posterior tibial artery tapers down in the midto distal calf. Peroneal artery tapers down distal calf. Anterior tibial arterycrosses the ankle and into the foot. On the left side there is a stent seen in the common iliac artery. There is amild to moderate stenosis at the superior end of the stent. Stent is patent.Focal area of high-grade stenosis or short segment occlusion involving theinternal iliac artery origin. Contrast opacification of the internal iliacartery distally. Calcified atherosclerotic plaque seen in the common iliacartery resulting in mild stenosis. Focal area of moderate to high-grade stenosisorigin of the superficial femoral artery. There is a stent seen in the distalSFA artery which extends to just above the knee which is occluded. Poplitealartery is patent. Trifurcation is seen. High takeoff of the anterior tibialartery. Posterior tibial artery tapers down in the upper calf. Peroneal arteryis threadlike and tapers down in the distal calf. Anterior tibial artery is seencrossing the ankle and into foot. Arteries are diffusely small. IMPRESSIONIMPRESSION: On the right side there is a stent seen in the superf icial femoralartery which is occluded. This extends from the upper thigh to just above theknee joint. There is contrast ossification of the popliteal artery.Trifurcation. Posterior tibial artery tapers down in the mid to distal calf.Peroneal artery tapers down distal calf. Anterior tibial artery crosses theankle and into the foot. On the left side focal area of moderate to high-grade stenosis origin of thesuperficial femoral artery. There is a stent seen in the distal SFA artery whichextends to just above the knee which is occluded. Popliteal artery is patent.Trifurcation is seen. High takeoff of the anterior tibial artery. Posteriortibial artery tapers down in the upper calf. Peroneal artery is threadlike andtapers down in the distal calf. Anterior tibial artery is seen crossing theankle and into foot. Arteries are diffusely small. 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 Punctatenonobstructive renal calculi bilaterally. Bladder is distended and lobulated cannot exclude bladder outlet obstruction. Left adrenal nodule and lobulated right adrenal gland unchanged. Enterted late after dischargeBMP:Lab ResultsComponent Value Date NA 142 02/15/2020 K 4.3 02/15/2020 CL 107 02/15/2020 CO2 33 (H) 02/15/2020 ANIONGAP 2 (L) 02/15/2020 CALCIUM 8.6 02/15/2020 GLU 224 (H) 02/15/2020 BUN 18 02/15/2020 CREATININE 0.61 02/15/2020 GFRAA >60 02/15/2020 GFRNONAA >60 02/15/2020CBC Brief:Lab ResultsComponent Value Date WBC 10.1 02/18/2020 HGB 10.3 (L) 02/18/2020 HCT 31.4 (L) 02/18/2020 PLT 469 (H) 02/18/2020Treatments: antibiotics: vancomycin, Zosyn and Meropenem, analgesia: percocetand Morphine, cardiac meds: lisinopril (generic), anticoagulation: ASA, Plavixand heparin, insulin: Humalog and Lantus and ancillary therapies: PTDischarge Exam:Vitals: Temp: [97.9 F-98.8 F] 97.9 FHeart Rate: [81-98] 98Resp: [18] 18BP: (123-163)/(62-79) 157/79General: She looks tearful today. Her dog just last night.Dressing: CDI to the left lower extremity wound just proximal to the knee.There is been some serosanguinous drainageWound: All of her incision sites are well aligned and healing well including thechest where she had her wires removed.Heart: Regular rate and rhythm S1-I7Xgawp: CTA bilaterally throughout without wheezes rales or rhonchiAbdomen: Soft NT, +BSExtremities: No pitting edema appreciated. Calves are supple.Skin: Skin is warm and dry. She has the ulceration on the right fifth toe thebase of it. No fluctuance noted today. The left heel has the wound VACpresent.Neuro: She is alert and oriented x3.PV : She has a palpable DP and PT on the right she has a dopplerable PT DP AT onthe left as well as PT on the right.Items needing special attention: Patient will be having ID and he is daptomycinat home. Patient: Tatianna Soto Date of : 1965 Primary ID physician: Dr. Levine Diagnosis: Bilateral foot osteomyelitis Organism(s): Pseudomonas, finegoldia, peptostreptococcus Antibiotics and doses: Meropenem 2 gm IV q 8 hr Discharge to home or to rehab? home Date antibiotics were started: 02/09/20 Length of anticipated treatment: 6 wk Anticipated last day of antibiotics: 03/21 Can antibiotics be stopped after the above day without additionalorders? No Can PICC line be removed after the above day's doses withoutadditional orders? No Labs ordered: CBC diff, CMP, ESR, CRP Lab frequency: Weekly, q Wednesday PICC line care: Biopatch or equivalent at insertion site Use StatLock or equivalent to secure the line inplace. ID office follow-up: In 3 weeks with SPRAY [employer] OPERATOR Other physicians involved: Dr. Sanford, (podiatry in [place]) Notes for ID provider use:54-year-old female with history of COPD, GERD, HTN, CAD with bypass, HLD, typeII DM with peripheral neuropathy, PAD with claudication, bilateral foot woundsfollows at wound care in [place]. Underwent right fifth metatarsal resectionin September with handstitching machine armhole feller, Dr. Mccarty in [place]. Then in December a left heelbiopsy that showed osteomyelitis. Wound culture at that time also grewpseudomonas, unclear whether she received any antibiotic treatment for this. Transferred [facility] with acute right foot and calf pain,ischemia. 02/04 s/p revascularization with right femoral endarterectomy, Iliac to profundafemoral bypass and jump graft from the right Iliofemoral bypass to the belowknee popliteal artery, ligation of the SFA.02/11 s/p left femoral to popliteal vein bypass and debridement of the leftheel, placement of a wound VAC.Heel wound was debrided down to bone, unfortunately no operative cultures ofleft heel were obtained. Nonsurgical wound culture and imaging data as follows:LEFT02/06 left heel wound culture with Pseudomonas aeruginosa, finegoldia magna, andgram-positive cocci on Gram stain.02/07 left lower extremity MRI concerning for calcaneus osteomyelitis.12/31 outpatient left heel bone biopsy with acute [id number] right fifth toe culture with Peptostreptococcus species and gram-positivecocci on Gram stain.02/05 right lower extremity MRI osteomyelitis fourth and fifth toes andmetatarsal heads Carolyn Salas NP Discharged Condition:stableDisposition: Home or Self CareSignature: SAROJ Matamorosate: February 16, 2020Time: 2:44 PM Name Value Range Interpretation Code Description Data Tisha rce(s) Supporting Document(s) ID Date Data Source [id number] 02/19/2020 01:10:00 PM EST [facility] ([facility]) Name Value Range Interpretation Code Description Data Tisha rce(s) Supporting Document(s) Sodium [Moles/volume] in Serum or Plasma 144 mmol/L 136-145 [facility] ([facility]) Potassium [Moles/volume] in Serum or Plasma 4.1 mmol/L 3.6-5.2 [facility] ([facility]) Chloride [Moles/volume] in Serum or Plasma 105 mmol/L 100-108 [facility] ([facility]) Urea nitrogen [Mass/volume] in Serum or Plasma 11 mg/dL 7-24 [facility] ([facility]) Carbon dioxide, total [Moles/volume] in Serum or Plasma 32 mmol/L 22 -31 [facility] ([facility]) Anion gap in Serum or Plasma 7 mmol/L 7-16 [facility] ([facility]) Glucose [Mass/volume] in Serum or Plasma 193 mg/dL 70-99 [facility] ([facility]) Creatinine [Mass/volume] in Serum or Plasma 0.60 mg/dL 0.60-1.00 [facility] ([facility]) Urea nitrogen/Creatinine [Mass Ratio] in Serum or Plasma 18.3 1 0.0-20.0 [facility] ([facility]) Glomerular filtration rate/1.73 sq M pre dicted among non-blacks [Volume Rate/Area] in Serum or Plasma by Creatinine-based formula (MDRD) Laboratory test result [facility] ([facility]) Glomerular filtration rate/1.73 sq M pre dicted among blacks [Volume Rate/Area] in Serum or Plasma by Creatinine-based formula (MDRD) Laboratory test result [facility] ([facility]) Calcium [Mass/volume] in Serum or Plasma 8.9 mg/dL 8.4-10.2 [facility] ([facility]) Glomerular filtration rate/1.73 sq M pre dicted among non-blacks [Volume Rate/Area] in Serum or Plasma by Creatinine-based formula (MDRD) Laboratory test result JOSE ([facility]) -- NORMAL KIDNEY FUNCTION OR MILD DISEASE - GFR >OR= 60 CHRONIC KIDNEY DISEASE - GFR 15 - 59 RENAL FAILURE - GFR <15 Est. GFR calculation based on the MDRD study equation, which assumes a steady state for creatinine. Est. GFR should not be used for medication dosing. ID Date Data Source [id number] 02/19/2020 12:08:31 PM EST [facility] Name Value Range Interpretation Code Description Data Tisha e(s) Supporting Document(s) POC NOVA GLU 317 mg/dL (70-99) H [facility] [place] PERFORMED BY [facility] STAFF ID Date Data Source [id number] 02/19/2020 07:42:28 AM EST [facility] Name Value Range Interpretation Code Description Data Tisha rce(s) Supporting Document(s) POC NOVA GLU 231 mg/dL (70-99) H [facility] [place] [facility] STAFF ID Date Data Source [id number] 02/19/2020 08:10:37 AM EST [facility] Name Value Range Interpretation Code Description Data Tisha rce(s) Supporting Document(s) SODIUM 144 mmol/L (136-145) [facility] POTASSIUM 4.1 mmol/L (3.6-5.2) [facility] CHLORIDE 105 mmol/L (100-108) [facility] CO2 32 mmol/L (22-31) H [facility] ANION GAP 7 mmol/L (7-16) [facility] UREA NITROGEN 11 mg/dL (7-24) [facility] CREATININE 0.60 mg/dL (0.60-1.00) [facility] BUN/CREAT RATIO 18.3 RATIO (10.0-20.0) [facility] GLUCOSE 193 mg/dL (70-99) H [facility] CALCIUM 8.9 mg/dL (8.4-10.2) [facility] GFR >60 ml/min/1.73m2 (>59) [facility] GFR ( AMER) >60 ml/min/1.73m2 (>59) [facility] GFR INTERPRETATION [facility] --NORMAL KIDNEY FUNCTION OR MILD DISEASE - GFR >OR= 60CHRONIC KIDNEY DISEASE - GFR 15 - 59RENAL FAILURE - GFR <15 Est. GFR calculation based on the MDRDstudy equation, which assumes a steadystate for creatinine. Est. GFR should notbe used for medication dosing. ID Date Data Source [id number] 02/19/2020 01:01:00 AM EST [facility] ([facility]) Name Value Range Interpretation Code Description Data Tisha e(s) Supporting Document(s) Est. Average Glucose 192 mg/dL [facility] ([facility]) Hemoglobin A1c/Hemoglobin.total in Blood 8.3 % 4.0-6.0 [facility] ([facility]) Performed using Siemens [place] immunoassa y. Care must be taken when interpreting HbA1c results in patients with a hemoglobin variant or decreased erythrocyte lifespan. Values 5.7 - 6.4% suggest prediabetes. Values >=6.5% are diagnostic for diabetes. REFERENCE: DIABETES CARE 2018: 41(S13-S27). PERFORMED AT [address] [place] [id number] ID Date Data Source [id number] 02/18/2020 07:31:11 PM EST [facility] Name Value Range Interpretation Code Description Data Tisha rce(s) Supporting Document(s) POC NOVA GLU 262 mg/dL (70-99) H [facility] PERFORMED BY [facility] CLINICAL STAFF ID Date Data Source [id number] 02/18/2020 08:02:30 PM EST [facility] Name Value Range Interpretation Code Description Data Tisha rce(s) Supporting Document(s) HEMOGLOBIN A1C @ 8.3 % (4.0-6.0) H [facility] Performed using Siemens [place] immunoassa y.Care must be taken when interpreting [id number] in patients with a hemoglobin variantor decreased erythrocyte lifespan. Values 5.7 - 6.4% suggest prediabetes.Values >=6.5% are diagnostic for diabetes.REFERENCE: DIABETES CARE 2018: 41(S13-S27).PERFORMED AT [address] [place] [address] [facility] [place] [facility] [place] [address] [place] GLUCOSE 192 mg/dL [facility] ID Date Data Source [id number] 02/18/2020 06:56:55 PM EST [facility] Name Value Range Interpretation Code Description Data Tisha rce(s) Supporting Document(s) WBC 10.1 10*3/uL (4.1-11.0) [facility] RBC 3.74 10*6/uL (4.00-5.40) L [facility] HGB 10.3 g/dL (12.0-16.0) L [facility] HCT 31.4 % (36.0-47.0) L [facility] MCV 83.9 fL (80.0-95.0) [facility] MCH 27.6 pg (27.0-32.0) [facility] MCHC 32.9 g/dL (32.0-36.0) [facility] RDW 16.0 % (10.5-14.5) H [facility] PLT 469 10*3/uL (150-450) H [facility] MPV 8.1 fL (7.1-10.7) [facility] ID Date Data Source [id number] 02/18/2020 06:13:50 PM EST [facility] Name Value Range Interpretation Code Description Data Tisha rce(s) Supporting Document(s) POC NOVA GLU 127 mg/dL (70-99) H [facility] [place] [facility] STA[facility] ID Date Data Source [id number] 02/18/2020 06:13:45 PM EST [facility] Name Value Range Interpretation Code Description Data Tisha rce(s) Supporting Document(s) POC NOVA GLU 69 mg/dL (70-99) L [facility] [place] [facility] STA[facility] ID Date Data Source [id number] 02/18/2020 06:13:40 PM EST [facility] Name Value Range Interpretation Code Description Data Tisha rce(s) Supporting Document(s) POC NOVA GLU 48 mg/dL (70-99) LL [facility] [place] [facility] STA[facility] ID Date Data Source [id number] 02/18/2020 04:55:12 PM EST [facility] Name Value Range Interpretation Code Description Data Tisha rce(s) Supporting Document(s) POC NOVA GLU 43 mg/dL (70-99) LL [facility] [place] [facility] STA[facility] ID Date Data Source [id number] 02/16/2020 11:32:00 AM EDT [facility] ([facility]) Name Value Range Interpretation Code Description Data Tisha rce(s) Supporting Document(s) Laboratory test finding (navigational concept) 315 mg/dL 70-99 [facility] ([facility]) PERFORMED BY [facility] STA[facility] ID Date Data Source [id number] 02/16/2020 07:32:56 AM EDT [facility] Name Value Range Interpretation Code Description Data Tisha rce(s) Supporting Document(s) POC NOVA GLU 315 mg/dL (70-99) H [facility] [place] [facility] STA[facility] ID Date Data Source [id number] 02/15/2020 05:13:38 PM EDT [facility] Name Value Range Interpretation Code Description Data Tisha rce(s) Supporting Document(s) POC NOVA GLU 265 mg/dL (70-99) H [facility] [place] [facility] STA[facility] ID Date Data Source [id number] 02/15/2020 12:25:02 PM EDT [facility] Name Value Range Interpretation Code Description Data Tisha rce(s) Supporting Document(s) POC NOVA GLU 318 mg/dL (70-99) H [facility] [place] [facility] ID Date Data Source [id number] 02/15/2020 11:03:00 AM EDT [facility] ([facility]) Name Value Range Interpretation Code Description Data Tisha rce(s) Supporting Document(s) Potassium [Moles/volume] in Serum or Plasma 4.3 mmol/L 3.6-5.2 [facility] ([facility]) Chloride [Moles/volume] in Serum or Plasma 107 mmol/L 100-108 [facility] ([facility]) Sodium [Moles/volume] in Serum or Plasma 142 mmol/L 136-145 [facility] ([facility]) Anion gap in Serum or Plasma 2 mmol/L 7-16 [facility] ([facility]) Carbon dioxide, total [Moles/volume] in Serum or Plasma 33 mmol/L 22 -31 [facility] ([facility]) Urea nitrogen [Mass/volume] in Serum or Plasma 18 mg/dL 7-24 [facility] ([facility]) Creatinine [Mass/volume] in Serum or Plasma 0.61 mg/dL 0.60-1.00 [facility] ([facility]) Urea nitrogen/Creatinine [Mass Ratio] in Serum or Plasma 29.5 1 0.0-20.0 [facility] ([facility]) Glucose [Mass/volume] in Serum or Plasma 224 mg/dL 70-99 [facility] ([facility]) Calcium [Mass/volume] in Serum or Plasma 8.6 mg/dL 8.4-10.2 [facility] ([facility]) Glomerular filtration rate/1.73 sq M pre dicted among blacks [Volume Rate/Area] in Serum or Plasma by Creatinine-based formula (MDRD) Laboratory test result [facility] ([facility]) Glomerular filtration rate/1.73 sq M pre dicted among non-blacks [Volume Rate/Area] in Serum or Plasma by Creatinine-based formula (MDRD) Laboratory test result [facility] ([facility]) Glomerular filtration rate/1.73 sq M pre dicted among non-blacks [Volume Rate/Area] in Serum or Plasma by Creatinine-based formula (MDRD) Laboratory test result [facility] ([facility]) -- NORMAL KIDNEY FUNCTION OR MILD DISEASE - GFR >OR= 60 CHRONIC KIDNEY DISEASE - GFR 15 - 59 RENAL FAILURE - GFR <15 Est. GFR calculation based on the MDRD study equation, which assumes a steady state for creatinine. Est. GFR should not be used for medication dosing. ID Date Data Source [id number] 02/15/2020 09:46:00 AM EDT [facility]) Name Value Range Interpretation Code Description Data Tisha rce(s) Supporting Document(s) Hemoglobin [Mass/volume] in Blood 9.2 g/dL 12.0-16.0 [facility] ([facility]) Leukocytes [#/volume] in Blood by Automated count 10.3 10*3/uL 4.1-11 .0 [facility] ([facility]) Erythrocytes [#/volume] in Blood by Automated count 3.33 10*6/uL 4.00 -5.40 [facility] ([facility]) Hematocrit [Volume Fraction] of Blood by Automated count 27.8 % 3 6.0-47.0 [facility] ([facility]) Erythrocyte mean corpuscular hemoglobin [Entitic mass] by Automated count 27.6 pg 27.0-32.0 [facility] ([facility]) Erythrocyte mean corpuscular volume [Entitic volume] by Auto mated count 83.5 fL 80.0-95.0 [facility] ([facility] Erythrocyte distribution width [Ratio] by Automated count 16.1 % 10.5-14.5 [facility] ([facility]) Platelets [#/volume] in Blood by Automated count 295 10*3/uL 150-450 [facility] ([facility]) Erythrocyte mean corpuscular hemoglobin concentration [Mass/volume] by Automated count 33.1 g/dL 32.0-36.0 [facility] ([facility]) Platelet mean volume [Entitic volume] in Blood by Javy 8.4 fL 7.1-10.7 [facility] ([facility]) ID Date Data Source [id number] 02/15/2020 08:48:59 AM EDT [facility] Name Value Range Interpretation Code Description Data Tisha rce(s) Supporting Document(s) POC NOVA GLU 239 mg/dL (70-99) H [facility] PERFORMED BY [facility] CLIN[facility] STAFF ID Date Data Source [id number] 02/15/2020 07:03:38 AM EDT [facility] Name Value Range Interpretation Code Description Data Tisha rce(s) Supporting Document(s) SODIUM 142 mmol/L (136-145) [facility] POTASSIUM 4.3 mmol/L (3.6-5.2) [facility] CHLORIDE 107 mmol/L (100-108) [facility] CO2 33 mmol/L (22-31) H [facility] ANION GAP 2 mmol/L (7-16) L [facility] UREA NITROGEN 18 mg/dL (7-24) [facility] CREATININE 0.61 mg/dL (0.60-1.00) [facility] BUN/CREAT RATIO 29.5 RATIO (10.0-20.0) H [facility] GLUCOSE 224 mg/dL (70-99) H [facility] CALCIUM 8.6 mg/dL (8.4-10.2) [facility] GFR >60 ml/min/1.73m2 (>59) [facility] GFR ( AMER) >60 ml/min/1.73m2 (>59) [facility] GFR INTERPRETATION [facility] --NORMAL KIDNEY FUNCTION OR MILD DISEASE - GFR >OR= 60CHRONIC KIDNEY DISEASE - GFR 15 - 59RENAL FAILURE - GFR <15 Est. GFR calculation based on the MDRDstudy equation, which assumes a steadystate for creatinine. Est. GFR should notbe used for medication dosing. ID Date Data Source [id number] 02/15/2020 05:47:32 AM EDT [facility] Name Value Range Interpretation Code Description Data Tisha rce(s) Supporting Document(s) WBC 10.3 10*3/uL (4.1-11.0) [facility] RBC 3.33 10*6/uL (4.00-5.40) L [facility] HGB 9.2 g/dL (12.0-16.0) L [facility] HCT 27.8 % (36.0-47.0) L [facility] MCV 83.5 fL (80.0-95.0) [facility] MCH 27.6 pg (27.0-32.0) [facility] MCHC 33.1 g/dL (32.0-36.0) [facility] RDW 16.1 % (10.5-14.5) H [facility] PLT 295 10*3/uL (150-450) [facility] MPV 8.4 fL (7.1-10.7) [facility] ID Date Data Source [id number] 02/14/2020 06:16:36 PM EDT [facility] Name Value Range Interpretation Code Description Data Tisha rce(s) Supporting Document(s) POC NOVA GLU 156 mg/dL (70-99) H [facility] [place] [facility] STA[facility] ID Date Data Source [id number] 02/14/2020 01:03:00 PM EDT [facility] Name Value Range Interpretation Code Description Data Tisha rce(s) Supporting Document(s) POC NOVA GLU 285 mg/dL (70-99) H [facility] [place] [facility] STA[facility] ID Date Data Source [id number] 02/14/2020 09:03:27 AM EDT [facility] Name Value Range Interpretation Code Description Data Tisha rce(s) Supporting Document(s) POC NOVA GLU 263 mg/dL (70-99) H [facility] [place] [facility] STA[facility] ID Date Data Source [id number] 02/14/2020 06:16:22 AM EDT [facility] Name Value Range Interpretation Code Description Data Tisha rce(s) Supporting Document(s) SODIUM 141 mmol/L (136-145) [facility] POTASSIUM 4.2 mmol/L (3.6-5.2) [facility] CHLORIDE 106 mmol/L (100-108) [facility] CO2 30 mmol/L (22-31) [facility] ANION GAP 5 mmol/L (7-16) L [facility] UREA NITROGEN 18 mg/dL (7-24) [facility] CREATININE 0.62 mg/dL (0.60-1.00) [facility] BUN/CREAT RATIO 29.0 RATIO (10.0-20.0) H [facility] GLUCOSE 250 mg/dL (70-99) H [facility] CALCIUM 8.5 mg/dL (8.4-10.2) [facility] GFR >60 ml/min/1.73m2 (>59) [facility] GFR ( AMER) >60 ml/min/1.73m2 (>59) [facility] GFR INTERPRETATION [facility] --NORMAL KIDNEY FUNCTION OR MILD DISEASE - GFR >OR= 60CHRONIC KIDNEY DISEASE - GFR 15 - 59RENAL FAILURE - GFR <15 Est. GFR calculation based on the MDRDstudy equation, which assumes a steadystate for creatinine. Est. GFR should notbe used for medication dosing. ID Date Data Source [id number] 02/14/2020 05:46:26 AM EDT [facility] Name Value Range Interpretation Code Description Data Tisha rce(s) Supporting Document(s) WBC 10.4 10*3/uL (4.1-11.0) [facility] RBC 3.38 10*6/uL (4.00-5.40) L [facility] HGB 9.5 g/dL (12.0-16.0) L [facility] HCT 27.9 % (36.0-47.0) L [facility] MCV 82.7 fL (80.0-95.0) [facility] MCH 28.1 pg (27.0-32.0) [facility] MCHC 34.0 g/dL (32.0-36.0) [facility] RDW 16.0 % (10.5-14.5) H [facility] PLT 287 10*3/uL (150-450) [facility] MPV 8.6 fL (7.1-10.7) [facility] ID Date Data Source [id number] 02/14/2020 04:33:00 AM EDT [facility] ([facility]) Name Value Range Interpretation Code Description Data Tisha rce(s) Supporting Document(s) Specimen Expiration Date Laboratory test result [facility] ([facility]) Patient Abo/Rh Laboratory test result ME DENT ([facility]) Antibody Screen Laboratory test result M EDENT ([facility]) Blood product unit ID [#] Laboratory test result [facility] ([facility]) Blood bank comment Laboratory test result [facility] ([facility]) BLOOD TYPE CONFIRMED. Testing site Laboratory test result MEDE NT ([facility]) Blood product unit ID [#] 0 [facility] ([facility]) Blood Component Type Laboratory test result [facility] ([facility]) Laboratory test finding (navigational concept) Laboratory test result [facility] ([facility]) Blood product unit ID [#] Laboratory test result [facility] ([facility]) Crossmatch Laboratory test result [facility] ([facility]) Transfusion status Laboratory test result [facility] ([facility]) Laboratory test finding (navigational concept) Laboratory test result [facility] ([facility]) Blood product unit ID [#] 0 MEDE NT ([facility]) Blood Component Type Laboratory test result [facility] ([facility]) Crossmatch Laboratory test result [facility] ([facility]) Transfusion status Laboratory test result [facility] ([facility]) ID Date Data Source [id number] 02/13/2020 05:54:11 PM EDT [facility] Name Value Range Interpretation Code Description Data Tisha rce(s) Supporting Document(s) POC NOVA GLU 216 mg/dL (70-99) H [facility] [place] PERFOR[facility] BY [facility] CL[facility] STA[facility] ID Date Data Source [id number] 02/13/2020 12:54:38 PM EDT [facility] INFORMATIONPatient MRN Name Date of Age Gend*PT [id number] Tatianna Soto 1965 54 years F IPPT Location Admission Date/Time Visit ID Attending [id number] 02/05/20 0417 --- Dain Sanford MD([id number]) EPI ID CSN Admitting Provider [id number] Dain Sanford MD([id number]) [place] [address] OPERATIVE REPORT OPNAME: TATIANNA SOTO Gerda#: [id number] #: [id number] ADMISSION DATE: 02/05/2020DOB: [birth year] SEX: F PT TYPE: I VascACCT #: [id number] CARE PHYSICIAN: TOM CORONADO-SURBEDATE OF OPERATION: 02/12/2020PREOPERATIVE DIAGNOSIS:Left foot critical limb ischemia in the setting of peripheral arterialdisease and atherosclerosis.POSTOPERATIVE DIAGNOSIS:Left foot critical limb ischemia in the setting of peripheral arterialdisease and atherosclerosis.PROCEDURE PERFORMED:Left femoral to popliteal vein bypass with reversed great saphenous veinfrom the left leg as well as debridement of left heel wound and placementof a wound VAC.ANESTHESIA:General endotracheal.ESTIMATED BLOOD LOSS:200 mL.SPECIMENS:None.IMPLANTS:None.DRAINS:None.BLOOD GIVEN:None.COMPLICATIONS:None.FINDINGS:Rubbery fixed intimal hyperplasia of the above knee popliteal as well asbelow knee bypass area. The vein was of decent size around 3-4 mm indiameter and was suitable for use in a reverse fashion. At the end of theprocedure, the patient had a nice signal in the dorsalis pedis as well asposterior tibial, which was augmented by the AV graft and diminishment ofthe graft and the graft compression. The graft was tunneled anatomically.PROCEDURE IN DETAIL:The patient was taken to the operating room and her left leg was preppedand draped in standard sterile fashion. A timeout was then performedconfirming the correct side and site of the procedure. I then started byperforming an incision directly over the great saphenous vein below theknee and the entire great saphenous vein from just above the ankle to themedial thigh was harvested using a continuous incision. Side branches weretied off with 2-0, 3-0, 4-0 silk sutures depending on size and the stayside was clipped with medium or small clips. Once the vein was completelyharvested, we then prepared it by flushing it with heparinized saline andtying off any remaining side branches with 7-0 Prolene sutures that werebleeding. At this point, I then turned my attention to dissection of theabove and below knee popliteal artery. These were dissected out using 2separate longitudinal incisions and one above the knee and a separateincision below the knee was carried out through the saphenectomy incisionbed. Both vessels were identified and doubly looped proximally anddistally. The patient was then heparinized. Longitudinal arteriotomieswere created and we then performed an end-to-side anastomosis starting withthe proximal and distal. The graft was tunneled in an anatomic plane andwe took care not to twist or kink the graft while bringing it intoposition. With the graft in place, sewed in with 7-0 Prolene sutures, Ithen flushed the graft and completed the anastomosis. Once this wascompleted, we then checked the signals. Signals were found to be excellentand following that, I then reversed the patient's heparin with protamineand then proceeded to obtain hemostasis with Bovie cautery for any smallbleeders. Once the hemostasis was impeccable, we then closed the wound inmultiple layers using 3-0 Vicryl sutures and skin lian as well asMonocryl on the above-knee popliteal incision. The patient was thenextubated. At this point, we then concluded and dressed the clean portionof the operation. I then turned my attention to the d ebridement of theleft heel wound. I then took a #10 blade and sharply debrided down to thelevel of the bone all skin and subcutaneous tissue and fibrinous exudatethat was present. At this point, we got the tissue down to bleedinghealthy tissue. I then did pulse lavage of the wound with saline 1 literand then proceeded to place a wound VAC on the heel. The patient was thenextubated and transferred to the recovery room in stable condition.I was present and performed all critical portions of the procedure.BETZY Borrego/CARMINE Job #: [id number] DOC #: [id number] Name Value Range Interpretation Code Description Data Tisha rce(s) Supporting Document(s) ID Date Data Source [id number] 02/13/2020 12:21:31 PM EDT [facility] Name Value Range Interpretation Code Description Data Tisha rce(s) Supporting Document(s) POC NOVA GLU 156 mg/dL (70-99) H [facility] [place] [facility] CLINICAL STAFF ID Date Data Source [id number] 02/13/2020 09:28:58 AM EDT [facility] Name Value Range Interpretation Code Description Data Tisha rce(s) Supporting Document(s) POC NOVA GLU 214 mg/dL (70-99) H [facility] [place] [facility] CLINICAL STAFF ID Date Data Source [id number] 02/13/2020 08:50:29 AM EDT [facility] Name Value Range Interpretation Code Description Data Tisha rce(s) Supporting Document(s) POC NOVA GLU 187 mg/dL (70-99) H [facility] [place] [facility] CLINICAL STAFF ID Date Data Source [id number] 02/13/2020 06:31:13 AM EDT [facility] Name Value Range Interpretation Code Description Data Tisha rce(s) Supporting Document(s) SODIUM 141 mmol/L (136-145) [facility] POTASSIUM 4.0 mmol/L (3.6-5.2) [facility] CHLORIDE 106 mmol/L (100-108) [facility] CO2 32 mmol/L (22-31) H [facility] ANION GAP 3 mmol/L (7-16) L [facility] UREA NITROGEN 17 mg/dL (7-24) [facility] CREATININE 0.77 mg/dL (0.60-1.00) [facility] BUN/CREAT RATIO 22.1 RATIO (10.0-20.0) H [facility] GLUCOSE 179 mg/dL (70-99) H [facility] CALCIUM 8.2 mg/dL (8.4-10.2) L [facility] GFR >60 ml/min/1.73m2 (>59) [facility] GFR ( AMER) >60 ml/min/1.73m2 (>59) [facility] GFR INTERPRETATION [facility] --NORMAL KIDNEY FUNCTION OR MILD DISEASE - GFR >OR= 60CHRONIC KIDNEY DISEASE - GFR 15 - 59RENAL FAILURE - GFR <15 Est. GFR calculation based on the MDRDstudy equation, which assumes a steadystate for creatinine. Est. GFR should notbe used for medication dosing. ID Date Data Source [id number] 02/13/2020 06:06:49 AM EDT [facility] Name Value Range Interpretation Code Description Data Tisha rce(s) Supporting Document(s) WBC 11.5 10*3/uL (4.1-11.0) H [facility] RBC 3.36 10*6/uL (4.00-5.40) L [facility] HGB 9.2 g/dL (12.0-16.0) L [facility] HCT 28.1 % (36.0-47.0) L [facility] MCV 83.6 fL (80.0-95.0) [facility] MCH 27.5 pg (27.0-32.0) [facility] MCHC 32.8 g/dL (32.0-36.0) [facility] RDW 16.0 % (10.5-14.5) H [facility] PLT 269 10*3/uL (150-450) [facility] MPV 8.4 fL (7.1-10.7) [facility] ID Date Data Source [id number] 02/12/2020 08:04:33 PM EDT [facility] Name Value Range Interpretation Code Description Data Tisha rce(s) Supporting Document(s) POC NOVA GLU 143 mg/dL (70-99) H [facility] [place] [facility] BY [facility] CLINICAL STAFF ID Date Data Source [id number] 02/12/2020 05:48:09 PM EDT [facility] Name Value Range Interpretation Code Description Data Tisha rce(s) Supporting Document(s) POC NOVA GLU 160 mg/dL (70-99) H [facility] [place] [facility] CLINICAL STAFF ID Date Data Source [id number] 02/12/2020 02:47:59 PM EDT [facility] INFORMATIONPatient MRN Name Date of Age Gend*PT [id number] Tatianna Soto 1965 54 years F IPPT Location Admission Date/Time Visit ID Attending Provider --- --- --- --- EPI ID CSN Admitting Provider [id number] ---AirwayPatient location during procedure: ORUrgency: electiveDifficult airway: noAdvanced airway equipment used: noStaffingPerformed by: Nelly Maloney, CRNAAnesthesiologist: Truong Sanches, LEIGHndications and Patient ConditionIndications for airway management: anesthesiaPreoxygenated: yesPatient position: sniffingIn-line stabilization: noMask ventilation: 3 - difficult mask (inadequate, unstable or two providers) +/-NMBAFinal Airway/ApproachesFinal airway type: ETTNumber of attempts at final approach: 1Number of other approaches attempted: 0Final Airway DetailsFinal ETT airway: ETT - singleCuffed: yesTechnique used for successful ETT placement: direct laryngoscopyCricoid pressure: noRSI: noInsertion site: oralBlade type/size: MAC 3ETT size: 7.0 mmMeasured from: lipsETT to lips: 21 cmPlacement verified by: + [id number] view: grade I - full view of glottis Name Value Range Interpretation Code Description Data Tisha rce(s) Supporting Document(s) ID Date Data Source [id number] 02/12/2020 12:49:35 PM EDT [facility] Name Value Range Interpretation Code Description Data Tisha rce(s) Supporting Document(s) POC NOVA GLU 232 mg/dL (70-99) H [facility] [place] [facility] CLINICAL STAFF ID Date Data Source [id number] 02/12/2020 02:38:33 PM EDT [facility] Name Value Range Interpretation Code Description Data Tisha rce(s) Supporting Document(s) POC NOVA GLU 229 mg/dL (70-99) H [facility] [place] [facility] CLINICAL STAFF ID Date Data Source [id number] 02/12/2020 09:14:58 AM EDT [facility] [place] Name Value Range Interpretation Code Description Data Tisha rce(s) Supporting Document(s) POC NOVA GLU 233 mg/dL (70-99) H [facility] [place] [facility] CLINICAL STAFF ID Date Data Source [id number] 02/12/2020 05:55:00 AM EDT [facility] ([facility]) Name Value Range Interpretation Code Description Data Tisha rce(s) Supporting Document(s) Laboratory test finding (navigational concept) Laboratory test result [facility] ([facility]) THIS ASSAY AMPLIFIES AND DETECTS THE TAR GET RNA USING REAL-TIME PCR. NEGATIVE 2019_NCOV RT-PCR RESULTS DO NOT PRECLUDE 2019_NCOV INFECTION AND SHOULD NOT BE USED THE SOLE BASIS FOR PATIENT MANAGEMENT DECISIONS. Specimen Description Laboratory test result [facility] ([facility]) Laboratory comment [Text] in Report Narrative Laboratory test result [facility] ([facility]) THE [place] FDA HAS MADE THIS TEST AVAILABL E UNDER AN EMERGENCY USE AUTHORIZATION (EUA) FOR THE DETECTION AND/OR DIAGNOSIS OF THE VIRUS THAT CAUSES COVID-19. EMAILED RESULTS TO [facility] IC AT [id number] LL [id number]. [id number] Employed In [employer] Laboratory test result [facility] ([facility]) Symptomatic Laboratory test result [facility] T ([facility]) First Test Laboratory test result [facility] ([facility]) Hospitalized Laboratory test result MEDE NT ([facility]) Illness or injury onset date and time Laboratory test result [facility] ([facility]) Icu Laboratory test result [facility] ([facility]) Laboratory test result [facility] ([facility]) [facility] Laboratory test result [facility]) ID Date Data Source [id number] 02/12/2020 04:42:48 AM EDT [facility] Name Value Range Interpretation Code Description Data Tisha rce(s) Supporting Document(s) SODIUM 140 mmol/L (136-145) [facility] POTASSIUM 4.3 mmol/L (3.6-5.2) [facility] CHLORIDE 103 mmol/L (100-108) [facility] CO2 30 mmol/L (22-31) [facility] ANION GAP 7 mmol/L (7-16) [facility] UREA NITROGEN 19 mg/dL (7-24) [facility] CREATININE 0.82 mg/dL (0.60-1.00) [facility] BUN/CREAT RATIO 23.2 RATIO (10.0-20.0) H [facility] GLUCOSE 284 mg/dL (70-99) H [facility] CALCIUM 8.3 mg/dL (8.4-10.2) L [facility] GFR >60 ml/min/1.73m2 (>59) [facility] GFR ( AMER) >60 ml/min/1.73m2 (>59) [facility] GFR INTERPRETATION [facility] --NORMAL KIDNEY FUNCTION OR MILD DISEASE - GFR >OR= 60CHRONIC KIDNEY DISEASE - GFR 15 - 59RENAL FAILURE - GFR <15 Est. GFR calculation based on the MDRDstudy equation, which assumes a steadystate for creatinine. Est. GFR should notbe used for medication dosing. ID Date Data Source [id number] 02/12/2020 04:03:40 AM EDT [facility] Name Value Range Interpretation Code Description Data Tisha rce(s) Supporting Document(s) WBC 10.1 10*3/uL (4.1-11.0) [facility] RBC 3.86 10*6/uL (4.00-5.40) L [facility] [place] HGB 10.6 g/dL (12.0-16.0) L [facility] HCT 31.5 % (36.0-47.0) L [facility] [place] [facility] MCV 81.6 fL (80.0-95.0) [facility] [facility] MCH 27.4 pg (27.0-32.0) [facility] [place] [facility] MCHC 33.6 g/dL (32.0-36.0) [facility] [place] [facility] RDW 16.0 % (10.5-14.5) H [facility] [place] [facility] PLT 269 10*3/uL (150-450) [facility] [place] MPV 8.3 fL (7.1-10.7) [facility] [place] ID Date Data Source [id number] 02/12/2020 12:00:00 AM EDT [facility] Name Value Range Interpretation Code Description Data Tisha rce(s) Supporting Document(s) SARS coronavirus 2 RNA [Presence] in Res piratory specimen by CHLOE with probe detection [facility] [place] This lab was reported by [facility]. ID Date Data Source [id number] 02/12/2020 02:00:35 AM EDT [facility] Name Value Range Interpretation Code Description Data Tisha rce(s) Supporting Document(s) SPECIMEN DESCRIPTION [facility] COVID19 RESULT (NDET) [facility] [place] THIS ASSAY AMPLIFIES AND DETECTSTHE TARG ET RNA USING REAL-TIME PCR.NEGATIVE 2019_NCOV RT-PCR RESULTS DONOT PRECLUDE 2019_NCOV INFECTION ANDSHOULD NOT BE USED THE SOLE BASISFOR PATIENT MANAGEMENT DECISIONS. COMMENT [facility] UNDER AN EMERGENCY USE AUTHORIZATION(EUA ) FOR THE DETECTION AND/OR DIAGNOSISOF THE VIRUS THAT CAUSES COVID-19.[facility] RES[facility] TO [facility] AT 9565 XF [id number]. [id number] FIRST TEST [facility] [place] EMPLOYED IN [employer] [facility] SYMPTOMATIC [facility] [place] [place] DATE OF SYMPT ONSET [facility] HOSPITALIZED [facility] ICU [facility] CONGREGATE CARE SET [facility] [place] ID Date Data Source [id number] 02/11/2020 11:57:13 PM EDT [facility] Name Value Range Interpretation Code Description Data Tisha rce(s) Supporting Document(s) POC NOVA GLU 290 mg/dL (70-99) H [facility] [place] [facility] CLINICAL STAFF ID Date Data Source [id number] 02/11/2020 04:54:06 PM EDT [facility] Name Value Range Interpretation Code Description Data Tisha rce(s) Supporting Document(s) POC NOVA GLU 287 mg/dL (70-99) H [facility] [place] [facility] CLINICAL STAFF ID Date Data Source [id number] 02/11/2020 04:19:00 PM EDT [facility] ([facility]) Name Value Range Interpretation Code Description Data Tisha rce(s) Supporting Document(s) Laboratory test finding (navigational concept) Laboratory test result [facility] ([facility]) Special Requests Laboratory test result [facility] ([facility]) Specimen Description Laboratory test result [facility] ([facility]) Report Status Laboratory test result [facility] ([facility]) ID Date Data Source [id number] 02/11/2020 02:14:58 PM EDT [facility] Name Value Range Interpretation Code Description Data Tisha rce(s) Supporting Document(s) POC NOVA GLU 297 mg/dL (70-99) H [facility] [place] [facility] CLINICAL STAFF ID Date Data Source [id number] 02/11/2020 10:33:00 AM EDT [facility] ([facility]) Name Value Range Interpretation Code Description Data Tisha rce(s) Supporting Document(s) Vancomycin [Mass/volume] in Serum or Plasma --trough 16.5 ug/mL 10.0- 20.0 [facility] ([facility]) ID Date Data Source [id number] 02/11/2020 10:30:00 AM EDT [facility] ([facility]) Name Value Range Interpretation Code Description Data Tisha rce(s) Supporting Document(s) Magnesium [Mass/volume] in Serum or Plasma 1.9 mg/dL 1.7-2.4 [facility] ([facility]) ID Date Data Source [id number] 02/11/2020 08:57:29 AM EDT [facility] Name Value Range Interpretation Code Description Data Tisha rce(s) Supporting Document(s) POC NOVA GLU 223 mg/dL (70-99) H [facility] [place] PERFOR[facility] BY [facility] CLINICAL STAFF ID Date Data Source [id number] 02/11/2020 06:34:06 AM EDT [facility] Name Value Range Interpretation Code Description Data Tisha rce(s) Supporting Document(s) VANCOMYCIN TROUGH 16.5 ug/mL (10.0-20.0) [facility] ID Date Data Source [id number] 02/11/2020 06:31:31 AM EDT [facility] Name Value Range Interpretation Code Description Data Tisha rce(s) Supporting Document(s) MAGNESIUM 1.9 mg/dL (1.7-2.4) [facility] ID Date Data Source [id number] 02/11/2020 06:31:31 AM EDT [facility] Name Value Range Interpretation Code Description Data Tisha rce(s) Supporting Document(s) SODIUM 141 mmol/L (136-145) [facility] POTASSIUM 4.2 mmol/L (3.6-5.2) [facility] CHLORIDE 107 mmol/L (100-108) [facility] CO2 29 mmol/L (22-31) [facility] ANION GAP 5 mmol/L (7-16) L [facility] UREA NITROGEN 19 mg/dL (7-24) [facility] CREATININE 0.76 mg/dL (0.60-1.00) [facility] BUN/CREAT RATIO 25.0 RATIO (10.0-20.0) H [facility] GLUCOSE 234 mg/dL (70-99) H [facility] CALCIUM 8.2 mg/dL (8.4-10.2) L [facility] GFR >60 ml/min/1.73m2 (>59) [facility] GFR ( AMER) >60 ml/min/1.73m2 (>59) [facility] GFR INTERPRETATION [facility] --NORMAL KIDNEY FUNCTION OR MILD DISEASE - GFR >OR= 60CHRONIC KIDNEY DISEASE - GFR 15 - 59RENAL FAILURE - GFR <15 Est. GFR calculation based on the MDRDstudy equation, which assumes a steadystate for creatinine. Est. GFR should notbe used for medication dosing. ID Date Data Source [id number] 02/11/2020 05:48:50 AM EDT [facility] Name Value Range Interpretation Code Description Data Tisha rce(s) Supporting Document(s) WBC 10.2 10*3/uL (4.1-11.0) [facility] RBC 3.73 10*6/uL (4.00-5.40) L [facility] HGB 10.3 g/dL (12.0-16.0) L [facility] HCT 30.7 % (36.0-47.0) L [facility] MCV 82.2 fL (80.0-95.0) [facility] MCH 27.7 pg (27.0-32.0) [facility] MCHC 33.7 g/dL (32.0-36.0) [facility] RDW 15.9 % (10.5-14.5) H [facility] PLT 228 10*3/uL (150-450) [facility] MPV 8.5 fL (7.1-10.7) [facility] ID Date Data Source [id number] 02/10/2020 07:54:00 PM EDT [facility] ([facility]) Name Value Range Interpretation Code Description Data Tisha rce(s) Supporting Document(s) Special Requests Laboratory test result [facility] ([facility]) Specimen Description Laboratory test result [facility] ([facility]) Report Status Laboratory test result [facility] ([facility]) Laboratory test finding (navigational concept) Laboratory test result [facility] ([facility]) ID Date Data Source [id number] 02/10/2020 05:16:39 PM EDT [facility] Name Value Range Interpretation Code Description Data Tisha rce(s) Supporting Document(s) POC NOVA GLU 298 mg/dL (70-99) H [facility] [place] [facility] CLINICAL STAFF ID Date Data Source [id number] 02/10/2020 03:27:38 PM EDT [facility] Name Value Range Interpretation Code Description Data Tisha rce(s) Supporting Document(s) POC NOVA GLU 362 mg/dL (70-99) H [facility] [place] [facility] CLINICAL STAFF ID Date Data Source [id number] 02/10/2020 01:12:32 PM EDT [facility] Name Value Range Interpretation Code Description Data Tisha rce(s) Supporting Document(s) POC NOVA GLU 440 mg/dL (70-99) HH [facility] [place] [facility] CLINICAL STAFF ID Date Data Source [id number] 02/10/2020 09:36:28 AM EDT [facility] [place] Name Value Range Interpretation Code Description Data Tisha rce(s) Supporting Document(s) POC NOVA GLU 269 mg/dL (70-99) H [facility] [place] [facility] CLINICAL STAFF ID Date Data Source [id number] 02/14/2020 12:34:03 AM EDT [facility] [place] SPEC EXP DATE 02/13/2020PATI ENT ABO/Rh B NEGATIVEANTIBODY SCREEN NEGATIVETESTING SITE PERFORMED AT [address] [place], [place] [address]BLOOD BANK COMMENT BLOOD TYPE CONFIRMED.UNIT NUMBER [id number] COMPONENT TYPE LEUKOPOOR RED CELLS (PT B)UNIT DIVISION 00STATUS OF UNIT REL FROM ALLOCTRANSFUSION STATUS OK TO TRANSFUSECROSSMATCH RESULT COMPATIBLEUNIT NUMBER [id number] COMPONENT TYPE LEUKOPOOR RED CELLSUNIT DIVISION 00STATUS OF UNIT REL FROM ALLOCTRANSFUSION STATUS OK TO TRANSFUSECROSSMATCH RESULT COMPATIBLE Name Value Range Interpretation Code Description Data Tisha rce(s) Supporting Document(s) TYPE AND SCREEN [facility] PATIENT ABO/Rh B NEGATIVE ID Date Data Source [id number] 02/10/2020 05:00:42 AM EDT [facility] Name Value Range Interpretation Code Description Data Tisha rce(s) Supporting Document(s) MAGNESIUM 2.1 mg/dL (1.7-2.4) [facility] ID Date Data Source [id number] 02/10/2020 05:00:42 AM EDT [facility] Name Value Range Interpretation Code Description Data Tisha rce(s) Supporting Document(s) SODIUM 141 mmol/L (136-145) [facility] POTASSIUM 4.2 mmol/L (3.6-5.2) [facility] CHLORIDE 106 mmol/L (100-108) [facility] CO2 29 mmol/L (22-31) [facility] ANION GAP 6 mmol/L (7-16) L [facility] UREA NITROGEN 19 mg/dL (7-24) [facility] CREATININE 0.90 mg/dL (0.60-1.00) [facility] BUN/CREAT RATIO 21.1 RATIO (10.0-20.0) H [facility] GLUCOSE 290 mg/dL (70-99) H [facility] CALCIUM 8.3 mg/dL (8.4-10.2) L [facility] GFR >60 ml/min/1.73m2 (>59) [facility] GFR ( AMER) >60 ml/min/1.73m2 (>59) [facility] GFR INTERPRETATION [facility] --NORMAL KIDNEY FUNCTION OR MILD DISEASE - GFR >OR= 60CHRONIC KIDNEY DISEASE - GFR 15 - 59RENAL FAILURE - GFR <15 Est. GFR calculation based on the MDRDstudy equation, which assumes a steadystate for creatinine. Est. GFR should notbe used for medication dosing. ID Date Data Source [id number] 02/10/2020 04:32:47 AM EDT [facility] Name Value Range Interpretation Code Description Data Tisha rce(s) Supporting Document(s) WBC 10.1 10*3/uL (4.1-11.0) [facility] RBC 3.84 10*6/uL (4.00-5.40) L [facility] HGB 10.5 g/dL (12.0-16.0) L [facility] HCT 31.9 % (36.0-47.0) L [facility] MCV 83.1 fL (80.0-95.0) [facility] MCH 27.4 pg (27.0-32.0) [facility] MCHC 33.0 g/dL (32.0-36.0) [facility] RDW 15.8 % (10.5-14.5) H [facility] PLT 216 10*3/uL (150-450) [facility] MPV 8.9 fL (7.1-10.7) [facility] ID Date Data Source [id number] 02/09/2020 06:26:35 PM EDT [facility] Name Value Range Interpretation Code Description Data Tisha rce(s) Supporting Document(s) POC NOVA GLU 259 mg/dL (70-99) H [facility] [place] [facility] CLINICAL STAFF ID Date Data Source [id number] 02/09/2020 02:44:00 PM EDT [facility] ([facility]) Name Value Range Interpretation Code Description Data Tisha rce(s) Supporting Document(s) Microscopic observation [Identifier] in Unspecified sp ecimen by Gram stain Laboratory test result [facility] ([facility]) Few (<10/LPF) White Blood Cellsmoderate (5 To 10/Oif) Gram Positive Cocci Specimen Description Laboratory test result [facility] ([facility]) Special Requests Laboratory test result [facility] ([facility]) Report Status Laboratory test result [facility] ([facility]) Laboratory test finding (navigational concept) Laboratory test result [facility] ([facility]) ID Date Data Source [id number] 02/09/2020 10:35:54 AM EDT [facility] NT INFORMATIONPatient MRN Name Date of Age Gend*PT [id number] Tatianna Soto 1965 54 years F IPPT Location Admission Date/Time Visit ID Attending [id number] 02/05/20 0417 --- Dain Sanford MD([id number]) EPI ID CSN Admitting Provider [id number] Dain Sanford MD([id number])NAME: Tatianna Lorenz#: [id number] #: [id number] DATE: 02/09/2020 PT TYPE: C SURACCT #: [id number] : 1965 SEX: femalePrimary Care Physician: TOM RUANO, DODISCHARGE DATE: 02/09/2020SURGEON: Dain Sanford MDASSISTANT: nonePREOPERATIVE DX:bilateral lower extremity arterial atherosclerosis with criticallimb ischemia bilaterally.POSTOPERATIVE DX: bilateral lower extremity arterial atherosclerosis withcritical limb ischemia bilaterally.PROCEDURE:1. Left common femoral artery ultrasound-guided access.2. Aortogram.3. Right lower extremity runoff.4. Left Leg runoff.4. Closure of left common femoral artery using 5Fr Mynx closure device.ANESTHESIA: Monitored sedation - sedation time 20 minutes.COMPLICATIONS: None.SPECIMEN: None.ESTIMATED BLOOD LOSS: MinimalINDICATION: This is a 54 years year old female with a history of right arterialatherosclerosis, who presented with Right 4th and 5th metatarsal osteomyelitisand a large left heel non healing ulcer, [facility] 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 She was planned for angiogram and possibleendovascular intervention to ensure good inflow into both legs and also to planfor a left leg bypass as necessary.DESCRIPTION OF PROCEDURE: After explaining the procedure to the patient andtaking written consent, the patient was taken to the endovascular suite.Patient was placed under conscious sedation using IV Versed and IV fentanyl. Theleft common femoral artery was accessed ultrasound using a micropuncture,followed by a J-wire and a 5-Yoruba Sheath. Next an Omni flush catheter wasplaced into the aorta. Aortogram was performed, which showed patent distalaorta, patent bilateral common, internal, and external iliac artery. Both commoniliac arteries are stented. There is 60% stenosis of the right common iliacartery stent. The catheter was placed up and over the bifurcation into the rightcommon femoral artery. right leg runoff was done, which showed patent commonfemoral, patent but severely diseased and small profunda femoris artery. Thesuperficial femoral artery was previously stented and was occluded throughout.There is a femoral to below knee popliteal artery bypass which is widelypatent.There is retrograde flow in the right popliteal artery stent behind theknee. There is 2 vessel runoff to the ankle via the anterior tibial artery asthe dominant vessel and the peroneal artery which is patent but diseased andmeasures around 1.5mm throug hout the leg. The PT occludes proximally and thenreconstitutes at the ankle and is diminutive and does not fill the pedal arch.I then placed a thruway wire into the common femoral artery and over the wireperformed balloon angioplasty of the entire External iliac artery and Commoniliac arteries. At this point while performing angioplasty of the right commoniliac arteries I then performed a left leg angiogram via the femoral sheath. Theleft leg angiogram was performed which revealed a patent but small commonfemoral artery, profunda femoral artery and superficial femoral artery. Thestent behind the knee was occluded. The popliteal artery reconstitutes justdistal to the stent and there is landing spot for a bypass graft in the X0wiesoog of the popliteal just distal to the stent. The peroneal and AT are thetwo main tibial vessels to the leg and the dorsalis pedis is patent to theankle. The PT is completely occluded throughout. I then performed finalangioplasty of the left common iliac artery and left external iliac artery withthe [id number] clare balloon and the [id number] clare balloons. Completionangiogram now performed retrograde from the left groin 5Fr sheath showedincreased overall caliber of the entire bilateral common iliacs and externaliliac arteries and no residual stenosis in the right common iliac artery stent(<20%) where previously it had been >60%. Please note that the other areas werediffusely stenotic preoperatively without any clear focal lesion , probablyaround 50% throughout all other treated vessels and down to <20% afterangioplasty. At this point no further endovascular intervention was warrantedand thus a 5Fr closure device was used to close the left groin arteriotomy.Manual pressure was held to ensure no bleeding or hematoma was present. Thepatient was stable throughout the procedure and I was present throughout.Outcome: Successful creation of inflow into the bilateral legs. She ultimatelyone day might need latter day of flow surgically to the profunda on the right.In the meanwhile she needs a bypass on the left leg and heel debridement. I alsoexplained to her that the right foot osteo will need possibly long termantibiotics or even an amputation in the future. At this point she wants toavoid amputation and try to treat the right foot with antibiotics. I willschedule her for left leg revasc next week. She needs to quit smoking and Ireinforced this with her.Dain Sanford MD02/09/20 Name Value Range Interpretation Code Description Data Tisha rce(s) Supporting Document(s) ID Date Data Source [id number] 02/09/2020 10:49:28 AM EDT [facility] Name Value Range Interpretation Code Description Data Tisha rce(s) Supporting Document(s) POC NOVA GLU 155 mg/dL (70-99) H [facility] [place] [facility] ID Date Data Source [id number] 02/09/2020 10:09:24 AM EDT [facility] Name Value Range Interpretation Code Description Data Tisha rce(s) Supporting Document(s) IR IS ARTERIOGRAM ILIAC SELECTIVE [facility] ID Date Data Source [id number] 02/09/2020 01:19:48 PM EDT [facility] Name Value Range Interpretation Code Description Data Tisha rce(s) Supporting Document(s) VANCOMYCIN TROUGH 9.9 ug/mL (10.0-20.0) L [facility] ID Date Data Source [id number] 02/09/2020 04:00:49 AM EDT [facility] Name Value Range Interpretation Code Description Data Tisha rce(s) Supporting Document(s) SODIUM 143 mmol/L (136-145) [facility] POTASSIUM 4.1 mmol/L (3.6-5.2) [facility] CHLORIDE 109 mmol/L (100-108) H [facility] CO2 30 mmol/L (22-31) [facility] ANION GAP 4 mmol/L (7-16) L [facility] UREA NITROGEN 18 mg/dL (7-24) [facility] CREATININE 0.67 mg/dL (0.60-1.00) [facility] BUN/CREAT RATIO 26.9 RATIO (10.0-20.0) H [facility] GLUCOSE 153 mg/dL (70-99) H [facility] CALCIUM 8.4 mg/dL (8.4-10.2) [facility] GFR >60 ml/min/1.73m2 (>59) [facility] GFR ( AMER) >60 ml/min/1.73m2 (>59) [facility] GFR INTERPRETATION [facility] --NORMAL KIDNEY FUNCTION OR MILD DISEASE - GFR >OR= 60CHRONIC KIDNEY DISEASE - GFR 15 - 59RENAL FAILURE - GFR <15 Est. GFR calculation based on the MDRDstudy equation, which assumes a steadystate for creatinine. Est. GFR should notbe used for medication dosing. ID Date Data Source [id number] 02/09/2020 04:00:49 AM EDT [facility] Name Value Range Interpretation Code Description Data Tisha rce(s) Supporting Document(s) MAGNESIUM 2.2 mg/dL (1.7-2.4) [facility] ID Date Data Source [id number] 02/09/2020 03:22:08 AM EDT [facility] Name Value Range Interpretation Code Description Data Tisha rce(s) Supporting Document(s) WBC 10.4 10*3/uL (4.1-11.0) [facility] RBC 4.14 10*6/uL (4.00-5.40) [facility] HGB 11.4 g/dL (12.0-16.0) L [facility] HCT 34.6 % (36.0-47.0) L [facility] MCV 83.8 fL (80.0-95.0) [facility] MCH 27.5 pg (27.0-32.0) [facility] MCHC 32.9 g/dL (32.0-36.0) [facility] RDW 15.6 % (10.5-14.5) H [facility] PLT 215 10*3/uL (150-450) [facility] MPV 8.7 fL (7.1-10.7) [facility] ID Date Data Source [id number] 02/08/2020 05:52:10 PM EDT [facility] Name Value Range Interpretation Code Description Data Tisha rce(s) Supporting Document(s) POC NOVA GLU 212 mg/dL (70-99) H [facility] ID Date Data Source [id number] 02/08/2020 04:32:59 PM EDT [address] [id number] Name: Tatianna MccarthyB: 1965Sex: FOrdering Provider: VIC FLANNERYuthorizing Prov: VIC Lozadaferjudy Provider: Procedure Performed: MRI LOW EXT NO JNT WO CONTRAST LEFTExam Date: 02/08/2020 15:20MRN: [id number] Number: [id number] Class: INFORMATION: Exam: MR Left Lower Extremity Other Than Joint Without Contrast; Foot Exam date and time: 02/08/2020 3:20 PM Age: 54 years old Clinical indication: Other: Osteomyelitis suspected, foot swelling, diabetes TECHNIQUE: Imaging protocol: MR of the Left lower extremity without contrast. Exam focused on the foot. COMPARISON: No relevant prior studies available. FINDINGS: Bones and cartilage: There is a large area of exposed bone at the medial and medial plantar posterior calcaneus. There is overlying periosteal reaction and cortical irregularity, and underlying marrow edema with increased T2 and smaller amount of intermedia tely decreased T1 weighted signal concerning for osteomyelitis. There may be a component of bone resorption at the posterior/medial/plantar aspect of the calcaneus. There is no acute fracture. No dislocation. Minimal degenerative change at the tibiotalar and subtalar joints as well as in the midfoot. Mild degenerative change and small amount of marrow edema medial hallux sesamoid. LIGAMENTS: Lisfranc ligament: Lisfranc ligament is intact. Soft tissues: Very large area of ulceration or ulceration and debridement tracking down to bone at the medial and medial plantar posterior calcaneus in the region measuring up to 3.8 cm dorsal to plantar by up to 1.3 cm in thickness and up to 4.7 cm proximal to distal. Underlying granulation tissue and surrounding cellulitis. Cellulitis at the medial and plantar aspects of the hindfoot. Small area of suspected adventitial bursitis plantar to the 5th metatarsal head. No tendon tear is seen.Plantar fascia: There is tearing of the proximal central cord of the pl janeth fascia, full-thickness in the medial half where the full-thickness soft tissue loss is present. The remainder of the central cord of the plantar fascia laterally as well as the lateral cord are intact but surrounded by edema. There is diffuse muscle edema with minimal diffuse fatty muscle atrophy. No drainable fluid collection or evidence of abscess. IMPRESSION: 1. Very large area of ulceration or ulceration in debridement with soft tissue loss tracking down to bone at the medial and medial plantar posterior calcaneus, and findings concerning for osteomyelitis in the underlying calcaneus. Associated granulation tissue at the deep margin of the large area of soft tissue loss, and surrounding cellulitis.2. Full-thickness tear of the medial half of the proximal central cord of the plantar fascia in the area of soft tissue loss and exposed bone. More lateral fibers are intact.3. Small area of suspected adventitial bursitis plantar to the 5th metatarsal head.4. No evidence of drainable abscess.5. Diffuse muscle edema with minimal diffuse fatty muscle atrophy. Findings may reflect denervation change and atrophy, although minimal multifocal myositis could also be present. Report electronically signed by: ANDRE ROLDAN MD on 02/08/2020 16:32:59 Name Value Range Interpretation Code Description Data Tisha rce(s) Supporting Document(s) ID Date Data Source [id number] 02/08/2020 02:51:29 PM EDT [facility] Name Value Range Interpretation Code Description Data Tisha rce(s) Supporting Document(s) POC NOVA GLU 263 mg/dL (70-99) H [facility] ID Date Data Source [id number] 02/08/2020 01:08:00 PM EDT [facility] Name Value Range Interpretation Code Description Data Tisha rce(s) Supporting Document(s) C reactive protein [Mass/volume] in Serum or Plasma 17.6 mg/dL 0.0-0. 5 [facility] ID Date Data Source [id number] 02/08/2020 02:17:03 PM EDT [facility] Name Value Range Interpretation Code Description Data Tisha rce(s) Supporting Document(s) POC NOVA GLU 169 mg/dL (70-99) H [facility] [place] [facility] ID Date Data Source [id number] 02/08/2020 12:41:45 PM EDT [facility] Name Value Range Interpretation Code Description Data Tisha rce(s) Supporting Document(s) EKG [facility] [id number] [file] [id number] ID Date Data Source [id number] 02/08/2020 12:32:23 PM EDT [address] [id number] Name: TATIANNA MCCARTHYB: 1965Sex: FOrdering Provider: DENISE HERNANDEZAuthorieldon Prov: DENISE HERNANDEZReferring Provider: Procedure Performed: XR CHEST PORTABLEExam Date: 02/08/2020 12:19MRN: [id number] Number: [id number] Class: InpatientAccount #: [id number] for Exam: in PACU, s/p sternal wire removalTechnique: AP portable view obtained.Comparison: February 05, 2020Findings: PICC line tip is at the level superior vena cava. No pneumothorax is demonstrated. No pleural effusion demonstrated. No adenopathy is demonstrated. Lungs are clear. Heart size is normal.IMPRESSION: No acute abnormality.Report electronically signed by: MCKAY SENA On 02/08/2020 12:32 PMWorkstation ID: [id number] Name Value Range Interpretation Code Description Data Tisha rce(s) Supporting Document(s) ID Date Data Source [id number] 02/08/2020 12:08:05 PM EDT [facility] Name Value Range Interpretation Code Description Data Tisha rce(s) Supporting Document(s) POC NOVA GLU 182 mg/dL (70-99) H [facility] [place] [facility] ID Date Data Source [id number] 02/08/2020 11:24:00 AM EDT [facility] Name Value Range Interpretation Code Description Data Tisha rce(s) Supporting Document(s) Erythrocyte sedimentation rate 96 mm/h 0-30 [facility]) ID Date Data Source [id number] 02/08/2020 10:35:29 AM EDT [facility] INFORMATIONPatient MRN Name Date of Age Gend*PT [id number] Tatianna Soto 1965 54 years F IPPT Location Admission Date/Time [facility] --- Dain Sanford MD([id number]) EPI ID CSN Admitting Provider [id number] Dain Sanford MD([id number])H&P reviewed. The patient was examined and there are no changes to the H&P.Saba Smith MD10:34 AM Name Value Range Interpretation Code Description Data Tisha rce(s) Supporting Document(s) ID Date Data Source [id number] 02/08/2020 08:29:24 AM EDT [facility] Name Value Range Interpretation Code Description Data Tisha rce(s) Supporting Document(s) POC NOVA GLU 178 mg/dL (70-99) H [facility] ID Date Data Source [id number] 02/08/2020 09:09:28 AM EDT [facility] Name Value Range Interpretation Code Description Data Tisah rce(s) Supporting Document(s) C REACTIVE PROTEIN @ 17.6 mg/dL (0.0-0.5) H [facility] ID Date Data Source [id number] 02/08/2020 07:24:58 AM EDT [facility] Name Value Range Interpretation Code Description Data Tisha rce(s) Supporting Document(s) ESR 96 mm/h (0-30) H [facility] ID Date Data Source [id number] 02/08/2020 06:50:28 AM EDT [facility] Name Value Range Interpretation Code Description Data Tisha rce(s) Supporting Document(s) VANCOMYCIN TROUGH 11.9 ug/mL (10.0-20.0) [facility] ID Date Data Source [id number] 02/08/2020 06:50:28 AM EDT [facility] Name Value Range Interpretation Code Description Data Tisha rce(s) Supporting Document(s) SODIUM 140 mmol/L (136-145) [facility] POTASSIUM 3.9 mmol/L (3.6-5.2) [facility] CHLORIDE 105 mmol/L (100-108) [facility] CO2 30 mmol/L (22-31) [facility] ANION GAP 5 mmol/L (7-16) L [facility] UREA NITROGEN 18 mg/dL (7-24) [facility] CREATININE 0.65 mg/dL (0.60-1.00) [facility] BUN/CREAT RATIO 27.7 RATIO (10.0-20.0) H [facility] GLUCOSE 228 mg/dL (70-99) H [facility] CALCIUM 8.6 mg/dL (8.4-10.2) [facility] GFR >60 ml/min/1.73m2 (>59) [facility] GFR ( AMER) >60 ml/min/1.73m2 (>59) [facility] GFR INTERPRETATION [facility] --NORMAL KIDNEY FUNCTION OR MILD DISEASE - GFR >OR= 60CHRONIC KIDNEY DISEASE - GFR 15 - 59RENAL FAILURE - GFR <15 Est. GFR calculation based on the MDRDstudy equation, which assumes a steadystate for creatinine. Est. GFR should notbe used for medication dosing. ID Date Data Source [id number] 02/07/2020 11:23:46 PM EDT [facility] Name Value Range Interpretation Code Description Data Tisha rce(s) Supporting Document(s) POC NOVA GLU 137 mg/dL (70-99) H [facility] ID Date Data Source [id number] 02/07/2020 04:40:16 PM EDT [facility] NT INFORMATIONPatient MRN Name Date of Age Gend*PT [id number] Tatianna Soto 1965 54 years F IPPT Location Admission Date/Time Visit ID Attending [id number] 02/05/20 0417 --- Dain Sanford MD([id number]) EPI ID CSN Admitting Provider [id number] Dain Sanford MD([id number])Inpatient Consult Megan SotoMRN: [id number] by Dain Sanford MD to evaluate Tatianna Soto for osteomyelitis of theright footRecords reviewed.HPI: The patient is a 54-year-old female with a history of chronic obstructivepulmonary disease, gastroesophageal reflux disease, coronary artery diseasestatus post bypass surgery 2015, hyperlipidemia, type 2 diabetes with peripheralNeuropathy, and peripheral vascular disease with claudication.Patient [facility] with 2 hours of acute right foot andcalf pain. She was started on intravenous heparin and transferred to [facility] to Dr. Sanford's serviceRight femoral endarterectomy, iliac to profunda femoral bypass using 6 mm ringedPTFE jump graft from the right iliofemoral bypass to the below knee poplitealartery using 6 mm PTFE. Ligation of the SFA, performed 02/04.Asked to comment on antibiotic management for the right foot osteomyelitis andan ulcerated left heel wound.Voice is hoarse postop. Rare cough. Denies sob. Had stopped smoking cigarettesbefore she was admitted. Her 32 yo son lives with her.Past Medical History:Past Medical History:Diagnosis Date Arthritis Chronic GERD controlled on PPI Claudication of both lower extremities claims she has never had official testing or deeper evaluation into this as of12/27/2015 COPD (chronic obstructive pulmonary disease) Coronary artery bypass graft 12/2015 Quintuple coronary bypass; KULKARNI to LAD, triple sequential graft to diagonal,OM1 and OM2 and single saphenous vein graft to distal RCA Diabetic neuropathy DM2 (diabetes mellitus, type 2) >= 20 yr Echocardiogram 2016 Ejection Fraction is 50 %. Apical anterior wall hypokinesis. Aoritc rootsclerosis/calcification with a round calcified nodule in the aortic wall ofunceratin etiology Echocardiogram 07/05/2019 Normal LV size with borderline LVH and overall mildly reduced left ventricularsystolic function. There is akinesis of apical segment, distal septal anddistal anterior wall. Overall estimated LVEF 45 to 50%. Grade 1 diastolicdysfunction. No significant valvular disease. Likely normal central venouspressure. Unable to estimate pulmonary artery pressure Heavy cigarette smoker (20-39 per day) since 18 yo HLD (hyperlipidemia) Hx of Diabetic coma 2016 unresponsive for while - ended up even having PEG/trach for while Non-STEMI (non-ST elevated myocardial infarction) 2016Past Surgical History:Past Surgical History:Procedure Laterality Date ANGIOPLASTY 07/2019 Dr. Bang BLADDER SURGERY CARDIAC SURGERY N/A 01/01/2016 Procedure: MEDIAN STERNOTOMY CORONARY GRAFTS X5 KULKARNI TAKEDOWN W RIGHT LEGENDOSCOPIC SAPHENOUS VEIN HARVEST; Surgeon: Saba Smith MD; Location: [facility]; Service: Cardiac/Open Heart; Laterality: N/A; FOOT SURGERY GASTROSTOMY W/ FEEDING TUBE 2014 LEG SURGERY PEG W/TRACHEOSTOMY PLACEMENT 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 > 1000 in early 2015 Right femoral endarterectomy, Iliac to profunda femoral bypass using 6mmri nged PTFE and Jump graft from the Right Iliofemoral bypass to the below kneepopliteal artery using 6mm Ringed PTFE. Ligation of the SFA. Right 02/06/2020 Dr. Sanford TRACHEOSTOMY 2015 TUBAL LIGATION VASCULAR SURGERY Right 02/05/2020 Procedure: Right femoral endarterectomy, Iliac to profunda femoral bypass [id number] ringed PTFE and Jump graft from the Right Iliofemoral bypass to the belowknee popliteal artery using 6mm Ringed PTFE. Ligation of the SFA.; Surgeon:Dain Sanford MD; Laterality: Right;Medications:Scheduled Meds: aspirin 325 mg Oral Daily atorvastatin 80 mg Oral Daily buPROPion 150 mg Oral Daily [START ON 02/08/2020] ceFAZolin (ANCEF) IV 2 g Intravenous Greaser Helper to OR clopidogrel 75 mg Oral Daily clotrimazole 1 application Topical BID docusate sodium 100 mg Oral BID [START ON 02/08/2020] escitalopram 10 mg Oral Daily ferrous sulfate 325 mg Oral Daily with breakfast heparin (porcine) 5,000 Units Subcutaneous Q8H CURRY insulin glargine 20 Units Subcutaneous BID insulin lispro 2-24 Units Subcutaneous With meals sliding scale lisinopril 5 mg Oral Daily mometasone-formoterol 2 puff Inhalation RTBID mupirocin Topical Daily normal saline flush 10 mL Intravenous Q8H CURRY normal saline flush 3 mL Intravenous Per Protocol pantoprazole 40 mg Oral Daily pentoxifylline 400 mg Oral TID with meals piperacillin-tazobactam (ZOSYN) IV 3.375 g Intravenous Q6H pregabalin 150 mg Oral BID senna-docusate 2 tablet Oral Nightly vancomycin 1,000 mg Intravenous [id number] Infusions: electrolyte-R Stopped (02/06/20 0349)PRN Meds:.acetaminophen, albuterol, bisacodyl, cyclobenzaprine, magnesiumhydroxide, metoclopramide, mineral oil, Morphine Sulfate (PF), ondansetron,oxyCODONE-acetaminophen, oxyCODONE- acetaminophen, polyethylene glycol,vancomycin randomly dosedAllergies:Basaglar kwikpen [insulin glargine]; Grapefruit concentrate; andInvokana [canagliflozin]Family History:Family HistoryProblem Relation Age of Onset Other Mother 68 more sudden of unknown causes COPD Father 55 Healthy, No Significant History Sister Heart disease Brother Diabetes Brother Healthy, No Significant History Sister Healthy, No Significant History SisterSocial History:Social HistorySocioeconomic History Marital status: Single Spouse name: None Number of children: 3 Years of education: None Highest education level: NoneOccupational History NoneSocial Needs Financial resource strain: None Food insecurity: Worry: None Inability: None Transportation needs: Medical: None Non-medical: NoneTobacco Use Smoking status: Current Every Day Smoker Packs/day: 1.00 Years: 35.00 Pack years: 35.00 Types: Cigarettes Smokeless tobacco: Never Used Tobacco comment: Per pt working with PCP for plan in placeSubstance and Sexual Activity Alcohol use: No Drug use: No Sexual activity: NoneLifestyle Physical activity: Days per week: None Minutes per session: None Stress: NoneRelationships Social connections: Talks on phone: None Gets together: None Attends lutheran service: None Active member of club or organization: None Attends meetings of clubs or organizations: None Relationship status: None Intimate partner violence: Fear of current or ex partner: None Emotionally abused: None Physically abused: None Forced sexual activity: NoneOther Topics Concern Bike Helmet Not Asked History of Falls Not Asked Self-Exams Not Asked Caffeine Concern Not Asked Hobby Hazards Not Asked Sleep Concern Not Asked Daily Calcium Supplement Not Asked Lead Exposure Not Asked Special Diet Not Asked Daily Vitamin D Supplement Not Asked Service Not Asked Stress Concern Not Asked Domestic Violence in home Not Asked Radon exposure Not Asked Weight Concern Not Asked Exercise Not Asked Seat Belt Not Asked Well water Not Asked Firearms in home Not AskedSocial History Narrative Has boyfriend. Has three children, all > 22 yo.had worked in [employer], last working 2008.Review of Systems:All review of systems are essentially negative except for those mentioned in theHPIPhysical Exam:Temp (24hrs), Av.7 F, Min:97.7 F, Max:99.9 FBlood Pressure: BP: 120/61 Pulse: Heart Rate: 94Temperature: Temp: 99.9 F Respirations: Resp: 18Admission Weight: Weight: 74.6 kg (164 lb 6.4 oz) O2 Saturation: SpO2: 99 %Today's Weight: Weight: 72.6 kg (160 lb) BMI: Body mass index is 27.46 kg/m .Pleasant female voice hoarse and soft, in no acute distressNormocephalic/atraumaticExtraocular movements intact, sclera anictericOropharynx upper dentures, tongue midlineNeck supple without adenopathy or jugular venous distentionLungs with diminished breath sounds at the basesChest wall inferior aspect with palpable sternal wires. Sternal woundwell- healedHeart exam S1-[id number] soft, obese. Nontender. Positive bowel sounds. WithouthepatosplenomegalyRight inguinal wound dressing intact. Right medial thigh wounds and leg wounddressing intactRight foot dressings and left calcaneus dressings intact.Photos noted taken 2 days ago.Neurologic awake, alert, oriented x3Skin without rashPsych normal affectRight PICC line soft, nontender, placed 02/06Labs, Imaging and Other Diagnostics:Diagnostic tests reviewed:Results from last 7 daysLab Units 02/05/2006WBC 10*3/uL 9.1 16.1* -- 13.2*HEMOGLOBIN g/dL 11.8* 12.2 -- 14.5HEMATOCRIT % 36.0 36.7 -- 43.7POC HEMATOCRIT % -- -- 37 -- PLATELETS 10*3/uL 202 241 -- 306Results from last 7 daysLab Units 02/05/2006SODIUM mmol/L 139 138 137POTASSIUM mmol/L 4.7 4.3 4.0CHLORIDE mmol/L 103 103 103CO2 mmol/L 26 25 25BUN mg/dL 16 17 29*CREATININE mg/dL 0.81 0.81 1.27*GLUCOSE mg/dL 268* 236* 274*CALCIUM mg/dL 8.8 8.2* 9.1Results from last 7 daysLab Units ALK PHOS U/L 162*ALT U/L 15AST U/L 13MRI of the right lower extremity 02/06/2020 with amputation of the fifth distalmetatarsal. Bone marrow edema within the fifth metatarsal stump. Residualphalanges of the fifth digit with edema in the proximal phalanx. Bone marrowedema in the fourth metatarsal head and base of the fourth proximal phalanxpositive for soft tissue swelling in the lateral forefoot. Intramuscular edemanoted.Results Procedure Component Value Units Date/Time Anaerobic culture [[id number]] Collected: 02/07/20 1015 Order Status: Sent Specimen: Wound Updated: 02/07/20 1133 Narrative: RIGHT FIFTH TOE. SAMPLE SENT. Anaerobic culture [[id number]] Collected: 02/07/20 1015 Order Status: Sent Specimen: Wound Updated: 02/07/20 1132 Narrative: LEFT HEEL. CULTURE ALREADY SENT. Wound culture [[id number]] Collected: 02/07/20 1015 Order Status: Sent Specimen: Non-Surg Soft Tissue Swab Updated: Narrative: RIGHT TOE WOUND Wound culture [[id number]] Collected: 02/07/20 1015 Order Status: Sent Specimen: Non-Surg Soft Tissue Swab Updated: Narrative: LEFT HEEL WOUND Blood Culture Peripheral x 1 Set (2 bottles aerobic and anaerobic) [[id number]]Collected: 02/05/20608 Order Status: Completed Specimen: Periphe ral Updated: 02/07/20 1057 Specimen Description PERIPHERAL 2 Special Requests NONE Culture Result NO GROWTH 2 DAYS Report Status PENDING Blood Culture Peripheral x 1 Set (2 bottles aerobic and anaerobic) [[id number]]Collected: 02/05/20608 Order Status: Completed Specimen: Peripheral Updated: 02/07/20 1057 Specimen Description PERIPHERAL 1 Special Requests NONE Culture Result NO GROWTH 2 DAYS Report Status PENDING 2019 nCoV Amplified [[id number]] Collected: 02/05/20 1445 Order Status: Completed Specimen: Swab from Nasopharyngeal Updated: SPECIMEN DESCRIPTION NASOPHARYNGEAL COVID19 RESULT NOT DETECTED Comment: THIS ASSAY AMPLIFIES AND DETECTSTHE TARGET RNA USING REAL-TIME PCR.NEGATIVE 2019_NCOV RT-PCR RESULTS DONOT PRECLUDE 2019_NCOV INFECTION ANDSHOULD NOT BE USED THE SOLE BASISFOR PATIENT MANAGEMENT DECISIONS. Comment SEE NOTES Comment: THE U.[place]. FDA HAS MADE THIS TEST AVAILABLEUNDER AN EMERGENCY USE AUTHORIZATION(EUA) FOR THE DETECTION AND/OR DIAGNOSISOF THE VIRUS THAT CAUSES COVID-19.RESULTS EMAILED TO [facility] [place] [id number]. [phone]. FIRST TEST YES EMPLOYED IN HLTHCARE NO SYMPTOMATIC NO DATE OF SYMPT ONSET NOT APPLICABLE HOSPITALIZED YES ICU NO CONGREGATE CARE SET NO NO 2019 nCoV Amplified [[id number]] Order Status: Canceled Specimen: Swab from NasopharyngealImpression and Recommendations:Principal Problem: Ischemia of right lower extremityActive Problems: Type 2 diabetes mellitus with circulatory disorder, with long-term current useof insulin Heavy cigarette smoker (20-39 per day) HLD (hyperlipidemia) Coronary artery disease involving [place] coronary artery of [place] heartwithout angina pectoris Peripheral vascular disease COPD (chronic obstructive pulmonary disease) Osteomyelitis of [id number]-dli female with type 2 diabetes with diabetic neuropathy, heavycigarette smoking, hyperlipidemia, coronary artery disease, chronic obstructivepulmonary disease.1-osteomyelitis of the right footShe presents with an ischemic right leg, status post revascularization, 02/04.Cellulitis of the right foot in the setting of an ulceration with osteomyelitisof the fifth metatarsal/proximal phalanx and the fourth metatarsal head/proximalphalanxWound culture pending from today.Peripheral blood cultures remain negative, 02/04.Recommend:Continue broad coverage pending culturesGlycemic control- hemoglobin A1c 8.1Check inflammatory indices.Continue aspirin, Plavix, and Trental.Anticipate the patient will need bilateral iliac artery angioplasty and left legbypass later this admission.MRI of the left foot pending2-protruding sternal wiresStatus post 5 vessel CABG 01/01/16The patient originally was scheduled for removal of the wires with Dr. Cohnm3-herpes labialis Valtrex x1 day.Signature: Shantell Levine, MDDate: February 07, 2020Time: 4:02 PM Name Value Range Interpretation Code Description Data Tisha rce(s) Supporting Document(s) ID Date Data Source [id number] 02/07/2020 04:22:00 PM EDT [facility] ([facility]) Name Value Range Interpretation Code Description Data Tisha rce(s) Supporting Document(s) Est. Average Glucose 186 mg/dL [facility] ([facility]) Hemoglobin A1c/Hemoglobin.total in Blood 8.1 % 4.0-6.0 [facility] ([facility]) Performed using Siemens [place] immunoassa y. Care must be taken when interpreting HbA1c results in patients with a hemoglobin variant or decreased erythrocyte lifespan. Values 5.7 - 6.4% suggest prediabetes. Values >=6.5% are diagnostic for diabetes. REFERENCE: DIABETES CARE 2018: 41(S13-S27). PERFORMED AT [address] [place] [id number] ID Date Data Source [id number] 02/07/2020 04:17:00 PM EDT [facility] ([facility]) Name Value Range Interpretation Code Description Data Tisha rce(s) Supporting Document(s) Prothrombin time (PT) in control Platelet poor plasma by Coagulation assay 10.3 s 9.2-11.9 [facility] ([facility]) INR in Platelet poor plasma by Coagulation assay 0.98 [facility] SUGGESTED THERAPEUTIC RANGES USING INR F OR STABILIZED ANTICOAGULATED PATIENTS: STANDARD DOSE THERAPY INR 2.0-3.0 DVT, PE, PREVENT DVT OR EMBOLISM HIGH DOSE THERAPY INR 2.5-3.5 PREVENT EMBOLISM FROM MECHANICAL HEART VALVE ID Date Data Source [id number] 02/07/2020 04:17:00 PM EDT [facility] ([facility]) Name Value Range Interpretation Code Description Data Tisha rce(s) Supporting Document(s) aPTT in Platelet poor plasma by Coagulation assay 25.1 s 22.0-34. 3 [facility]) ID Date Data Source [id number] 02/07/2020 02:05:34 PM EDT [facility] Name Value Range Interpretation Code Description Data Tisha rce(s) Supporting Document(s) POC NOVA GLU 244 mg/dL (70-99) H [facility] [place] [facility]FORMED BY [facility] CLINICAL STAFF ID Date Data Source [id number] 02/07/2020 12:18:33 PM EDT [facility] Name Value Range Interpretation Code Description Data Tisha rce(s) Supporting Document(s) APTT 25.1 s (22.0-34.3) [facility] ID Date Data Source [id number] 02/07/2020 12:18:33 PM EDT [facility] Name Value Range Interpretation Code Description Data Tisha rce(s) Supporting Document(s) PT 10.3 s (9.2-11.9) [facility] INR 0.98 [facility] SUGGESTED THERAPEUTIC RANGES USING INR F ORSTABILIZED ANTICOAGULATED PATIENTS:STANDARD DOSE THERAPY INR 2.0-3.0 DVT, PE, PREVENT DVT OR EMBOLISMHIGH DOSE THERAPY INR 2.5-3.5 PREVENT EMBOLISM FROM MECHANICAL HEART VALVE ID Date Data Source [id number] 02/07/2020 12:23:15 PM EDT [facility] Name Value Range Interpretation Code Description Data Tisha rce(s) Supporting Document(s) HEMOGLOBIN A1C @ 8.1 % (4.0-6.0) H [facility] Performed using Siemens [place] immunoassa y.Care must be taken when interpreting [id number] in patients with a hemoglobin variantor decreased erythrocyte lifespan. Values 5.7 - 6.4% suggest prediabetes.Values >=6.5% are diagnostic for diabetes.REFERENCE: DIABETES CARE 2018: 41(S13-S27).PERFORMED AT [address] [facility] [address] EST AVERAGE GLUCOSE 186 mg/dL [facility] ID Date Data Source [id number] 02/11/2020 05:12:29 PM EDT [facility] SPECIMEN DESCRIPTION NON-SURG SOF T TISSUE SWAB LEFT HEEL WOUNDSPECIAL REQUESTS NONECULTURE RESULTS MODERATE FINEGOLDIA MAGNAREPORT STATUS FINAL 02/11/2020 Name Value Range Interpretation Code Description Data Tisha rce(s) Supporting Document(s) ID Date Data Source [id number] 02/10/2020 03:54:39 PM EDT [facility] SPECIMEN DESCRIPTION NON-SURG SOF T TISSUE SWAB RIGHT TOE WOUNDSPECIAL REQUESTS NONECULTURE RESULTS FEW PEPTOSTREPTOCOCCUS SPECIESREPORT STATUS FINAL 02/10/2020 Name Value Range Interpretation Code Description Data Tisha rce(s) Supporting Document(s) ID Date Data Source [id number] 02/09/2020 10:45:06 AM EDT [facility] SPECIMEN DESCRIPTION NON-SURG SOF T TISSUE SWAB RIGHT TOE WOUNDSPECIAL REQUESTS NONEGRAM STAIN FEW (<10/LPF) WHITE BLOOD CELLS MODERATE (5 TO 10/OIF) GRAM POSITIVE COCCICULTURE RESULTS NO GROWTHREPORT STATUS FINAL 02/09/2020 Name Value Range Interpretation Code Description Data Tisha rce(s) Supporting Document(s) ID Date Data Source [id number] 02/09/2020 10:22:00 AM EDT [facility] SPECIMEN DESCRIPTION NON-SURG SOF T TISSUE SWAB LEFT HEEL WOUNDSPECIAL REQUESTS NONEGRAM STAIN FEW (<10/LPF) WHITE BLOOD CELLS MODERATE (5 TO 10/OIF) GRAM NEGATIVE RODS FEW (1 TO 5/OIF) GRAM POSITIVE COCCICULTURE RESULTS MODERATE PSEUDOMONAS AERUGINOSAREPORT STATUS FINAL 02/09/2020ORGANISM PSEUDOMONAS AERUGINOSAMETHOD MICAMIKACIN 4 SUSCEPTIBLECEFEPIME 8 SUSCEPTIBLECEFTAZIDIME 4 SUSCEPTIBLECIPROFLOXACIN 1 INTERMEDIATE MOXIFLOXACIN CAN NOT BE USED TO TREAT INFECTION S CAUSED BY PSEUDOMONAS SPECIES. GENTAMICIN 2 SUSCEPTIBLELEVOFLOXACIN >=8 RESISTANTMEROPENEM 2 SUSCEPTIBLEPIPERACILLIN/TAZOBACTAM 16 SUSCEPTIBLETOBRAMYCIN 2 SUSCEPTIBLE Name Value Range Interpretation Code Description Data Tisha rce(s) Supporting Document(s) ID Date Data Source [id number] 02/07/2020 08:42:59 AM EDT [facility] Name Value Range Interpretation Code Description Data Tisha rce(s) Supporting Document(s) POC NOVA GLU 238 mg/dL (70-99) H [facility] [place] [facility] CLINICAL STAFF ID Date Data Source [id number] 02/07/2020 07:56:24 AM EDT [facility] Name Value Range Interpretation Code Description Data Tisha rce(s) Supporting Document(s) SODIUM 139 mmol/L (136-145) [facility] POTASSIUM 4.7 mmol/L (3.6-5.2) [facility] CHLORIDE 103 mmol/L (100-108) [facility] CO2 26 mmol/L (22-31) [facility] ANION GAP 10 mmol/L (7-16) [facility] UREA NITROGEN 16 mg/dL (7-24) [facility] CREATININE 0.81 mg/dL (0.60-1.00) [facility] BUN/CREAT RATIO 19.8 RATIO (10.0-20.0) [facility] GLUCOSE 268 mg/dL (70-99) H [facility] CALCIUM 8.8 mg/dL (8.4-10.2) [facility] GFR >60 ml/min/1.73m2 (>59) [facility] GFR ( AMER) >60 ml/min/1.73m2 (>59) [facility] GFR INTERPRETATION [facility] --NORMAL KIDNEY FUNCTION OR MILD DISEASE - GFR >OR= 60CHRONIC KIDNEY DISEASE - GFR 15 - 59RENAL FAILURE - GFR <15 Est. GFR calculation based on the MDRDstudy equation, which assumes a steadystate for creatinine. Est. GFR should notbe used for medication dosing. ID Date Data Source [id number] 02/07/2020 07:32:09 AM EDT [facility] Name Value Range Interpretation Code Description Data Tisha rce(s) Supporting Document(s) WBC 9.1 10*3/uL (4.1-11.0) [facility] [place] RBC 4.29 10*6/uL (4.00-5.40) [facility] HGB 11.8 g/dL (12.0-16.0) L [facility] HCT 36.0 % (36.0-47.0) [facility] MCV 84.0 fL (80.0-95.0) [facility] MCH 27.4 pg (27.0-32.0) [facility] MCHC 32.6 g/dL (32.0-36.0) [facility] RDW 15.7 % (10.5-14.5) H [facility] PLT 202 10*3/uL (150-450) [facility] MPV 8.7 fL (7.1-10.7) [facility] ID Date Data Source [id number] 02/06/2020 10:59:00 PM EDT [facility] ([facility]) Name Value Range Interpretation Code Description Data Tisha rce(s) Supporting Document(s) Laboratory test finding (navigational concept) Laboratory test result [facility] ([facility]) [facility] [address] [address]Lor# Surgical Pathology ReportAccession #:[id number]) ReceivedA: Contents of femoral artery rightClinical Diagnosis and HistoryClaudication Diagnosiscontents Of Femoral Artery, Right: Atherosclerotic Plaque (Gross Diagnosis). Gross DescriptionReceived in formalin, the specimen is labeled "contents of femoral arteryright" consists of fragmented white-johnson calcified atherosclerotic plaquemeasuring approximately 3-4 cm in aggregate. No sections submitted. Gr elif. jglgmm/gmm Reported: 02/06/2020Electronically Signed Out By Serjio Sandhu M.D. [facility] [place] [id number] component performed at [employer] [facility], Histopathology, [address] [place], [place], [address].Reported at [facility], [address] [place] [address], [address]. This report may includeimmunohistochemical or in-situ hybridization results. Testing wasdeveloped and the performance characteristics determined by [employer] as required by [employer] '88. The Fda hasdetermined that approval for specific use is not necessary for clinicaluse. The quality of Hematoxylin and Eosin stains and as applicable, forall im munohistochemical and/or special stains, including positive andnegative controls, were reviewed and considered appropriate.Icd codes I70.90CPT codesA: 70990I ID Date Data Source [id number] 02/06/2020 10:43:12 PM EDT [address] [address]Vultcbs Name: Tatianna Mcintosh: 1965Sex: FOrdering Provider: VIC FLANNERYuthorizing Prov: VIC Lozadaferjudy Provider: Procedure Performed: MRI LOW EXT NO JNT WO CONTRAST RIGHTExam Date: 02/06/2020 20:23MRN: [id number] Number: [id number] Class: INFORMATION: Exam: MR Right Lower Extremity Other Than Joint Without Contrast; Foot Exam date and time: 02/06/2020 8:23 PM Age: 54 years old Clinical indication: Cellulitis; Toes; Right; Additional info: Osteomyelitis suspected, foot swelling, diabetic TECHNIQUE: Imaging protocol: MR of the Right lower extremity without contrast. Exam focused on the foot. COMPARISON: No relevant prior studies available. FINDINGS: Bones and cartilage: There has been amputation of the 5th distal metatarsal. There is bone marrow edema within the 5th metatarsal stump on STIR and T1 weighted images. There are residual phalanges of the 5th digit with edema in the proximal phalanx. There is also bone marrow edema in the 4th metatarsal head and base of the 4th proximal phalanx. Soft tissues: There is soft tissue swelling of the lateral forefoot. There is an apparent ulceration of the lateral forefoot. Intramuscular edema may be secondary to myositis or neuropathy. IMPRESSION: 1. Cellulitis of the lateral forefoot with an apparent ulceration. 2. 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 There is edema within the 5th metatarsal stump on T1 and T2 weighted images and with osteomyelitis. There is also edema in the 5th proximal phalanx stint with osteomyelitis. 3. There is edema in the 4th metatarsal head and 4th proximal phalanx consistent with osteomyelitis. Report electronically signed by: ALEXANDRO FARR MD on 02/06/2020 22:43:12 Name Value Range Interpretation Code Description Data Tisha rce(s) Supporting Document(s) ID Date Data Source [id number] 02/06/2020 06:47:40 PM EDT [facility] Name Value Range Interpretation Code Description Data Tisha rce(s) Supporting Document(s) POC NOVA GLU 294 mg/dL (70-99) H [facility] PERFOR[facility] BY [facility] CLINICAL STAFF ID Date Data Source [id number] 02/06/2020 02:32:52 PM EDT [facility] NT INFORMATIONPatient MRN Name Date of Age Gend*PT [id number] Tatianna Soto 1965 54 years F SDCPT Location Admission Date/Time Visit ID Attending Provider --- --- --- Saba Smith MD([id number]) EPI ID CSN Admitting Provider [id number] Saba Smith MD([id number]) [place] [address] OPERATIVE REPORT OPNAME: TATIANNA SOTO#: [id number] #: ADMISSION DATE:: 1965 SEX: F PT TYPE: H SURACCT #: [id number] CARE PHYSICIAN: TOM CORONADO-SURBEDATE OF OPERATION: 02/05/2020DATE AND TIME OF PROCEDURE:02/05/2020 at approximately 7:00 p.m.PREOPERATIVE DIAGNOSIS:Right lower extremity critical limb ischemia with rest pain.POSTPROCEDURAL DIAGNOSIS:Right lower extremity critical limb ischemia with rest pain in the settingof an acutely occluded right superficial femoral artery stent.ESTIMATED BLOOD LOSS:250 mL.SPECIMEN:Right common femoral artery contents for permanent pathology.ELECTROPLATER APPRENTICE:Cliff Alex PA-C.ANESTHESIA:General endotracheal.PROCEDURE IN DETAIL:The patient is a 54-year-old lady acutely transferred from an outsidehospital for cold right leg. She had undergone previously an iliac stentand is a longstanding smoker with severe atherosclerotic disease andintimal hyperplasia throughout the entire infrarenal abdominal aorta anddown into the femoral segment. A previous long segment SFA to poplitealstent had been placed and appears to have been occluded acutely. I did notfeel she would benefit from attempt at re-lysing and I felt that she woul ddo better with a bypass. I discussed this with the patient and she choseto proceed forward.DESCRIPTION OF PROCEDURE:The patient was taken to the operating room. Her right leg was prepped anddraped in standard sterile fashion. A timeout was performed confirming thecorrect side and site of the procedure. I started by making a longitudinalincision in the groin and dissecting out the external iliac artery, commonfemoral artery and profunda femoral artery. The artery was found to bevery rubbery. I doubly looped the profunda distally and proximally. Ialso got control of the iliac artery and the femoral artery and thesuperficial femoral artery. I then created an incision just above the kneeand dissected down to the superficial femoral artery and the stent, whichwas identified just above the knee. This gave me a plane to be able totunnel in an anatomic fashion to the below-knee popliteal artery in thegroin. At this point, I then turned my attention to the below-kneepopliteal artery. A longitud inal incision was made through the skin. Ithen dissected down with Bovie cautery and sharp dissection to the fatsubcutaneously and down to the level of the fascia. The gastrocnemiusmuscle was reflected downward. The popliteal artery was identified anddissected free from the popliteal veins. It was doubly looped proximallyand distally, found again to be small, underfilled and rubbery in nature.At this point, I then turned my attention to creation of the bypass. Thepatient was heparinized with 8000 units of heparin to achieve ACT greaterthan 250 and with heparin on board, I then performed endarterectomy of thecommon femoral, starting with a longitudinal incision, at which point Iidentified severe calcific plaque within the common femoral artery. Thelumen appeared completely occluded and the external iliac artery almost wasnearly 100% occluded. The patient is known to have iliac disease, but aswell as placing stents throughout her entire iliac system would likelycause her to be at more risk of thrombosing at a later date, given the factthat I would likely have to remove all additional side branches. I spentquite a bit of time dissecting out removing all this plaque and eventuallytrying to endarterectomize the lumen of the profunda. I realized that therubbery catheter was too extensive in nature and extended deep into theprofunda femoral artery as was seen on her preoperative imaging. I thendecided to dissect further the profunda femoral artery. I divided thecrossing veins over the profunda femoral artery proximally and dissectedout about 3-4 cm of profunda femoral artery proximally including a few sidebranches into a loop. I then created a longitudinal arteriotomy in theprofunda and removed quite significant amount of plaque. The plaque wallbecame quite sprayed. I was able to salvage the side branches as well asthe main trunk of the profunda femoral artery. In order to do this, Iended up ligating the superficial femoral artery with a 0 Vicryl sutureligature and I then created a bevelled 6 mm PTFE patch. Once the patch hadbeen created, I then created the proximal anastomosis to the iliac artery,which had been thoroughly endarterectomized. With the iliac to profundafemoral PTFE bypass graft completed, I then turned my attention topreparing the below-knee popliteal artery and the graft was tunneled and a6 mm ring PTFE graft was tunneled from the femoral incision subsartoriallyand brought out an anatomic plane through the popliteal space andpositioned and anastomosed first to the proximal bypass graft, thuscreating a PTFE to PTFE elgdz-em-mpzys anastomosis and this jump graft wasthen anastomosed distally to the popliteal artery, which was rubbery butpatent and did not require endarterectomy. All proximal incisions werecompleted with 5-0 C1 needle and the distal anastomosis to the below- kneepopliteal artery was completed with a 6-0 BV-1 suture. Any additionalbleeding holes were controlled with protamine sulfate. I then checked thesignal, gave 25 mg of papaverine intra-arterially in the leg and afterabout 10-15 minutes, the patient now had a bounding right dorsalis pedispulse and a stronger posterior tibial signal, where none had been presentpreoperatively. At this point, I felt that the patient now would be freefrom any limb threat and additionally we had salvaged multiple profundafemoral branches and likely the patient would be unlikely to have anylongstanding problems even if the bypass graft were to go on to occlude.Thus, I concluded the operation by reversing her with protamine and closingthe incisions with 2-0 Vicryl sutures and the skin with 3-0 Monocrylsutures once the wounds were hemostatic. At this point, I felt no furtherintervention was required. The patient was extubated, awoken andtransferred to recovery room in stable condition.I was present and performed all critical portions of the procedure. Therewere no complications in the procedure.OUTCOME:Successful right iliofemoral endarterectomy, profunda femoralendarterectomy, iliac to profunda femoral bypass with a 6 mm ring PTFE andjump graft from the iliofemoral profunda bypass to the below-knee poplitealartery with 6 mm ring PTFE. The patient now has inline runoff and flow tothe foot via the dorsalis pedis artery.BETZY Borrego/CARMINE Job #: [id number] DOC #: [id number] Name Value Range Interpretation Code Description Data Tisha rce(s) Supporting Document(s) ID Date Data Source [id number] 02/06/2020 12:23:05 PM EDT [facility] Name Value Range Interpretation Code Description Data Tisha rce(s) Supporting Document(s) POC NOVA GLU 355 mg/dL (70-99) H [facility] PERFOR[facility] BY [facility] CLINICAL STAFF ID Date Data Source [id number] 02/06/2020 09:01:24 AM EDT [facility] Name Value Range Interpretation Code Description Data Tisha rce(s) Supporting Document(s) POC NOVA GLU 207 mg/dL (70-99) H [facility] [place] [facility]FOR[facility] BY [facility] CLINICAL STAFF ID Date Data Source [id number] 02/06/2020 08:37:40 AM EDT [facility] Name Value Range Interpretation Code Description Data Tisha rce(s) Supporting Document(s) SODIUM 138 mmol/L (136-145) [facility] POTASSIUM 4.3 mmol/L (3.6-5.2) [facility] CHLORIDE 103 mmol/L (100-108) [facility] CO2 25 mmol/L (22-31) [facility] ANION GAP 10 mmol/L (7-16) [facility] UREA NITROGEN 17 mg/dL (7-24) [facility] CREATININE 0.81 mg/dL (0.60-1.00) [facility] BUN/CREAT RATIO 21.0 RATIO (10.0-20.0) H [facility] GLUCOSE 236 mg/dL (70-99) H [facility] CALCIUM 8.2 mg/dL (8.4-10.2) L [facility] GFR >60 ml/min/1.73m2 (>59) [facility] GFR ( AMER) >60 ml/min/1.73m2 (>59) [facility] GFR INTERPRETATION [facility] --NORMAL KIDNEY FUNCTION OR MILD DISEASE - GFR >OR= 60CHRONIC KIDNEY DISEASE - GFR 15 - 59RENAL FAILURE - GFR <15 Est. GFR calculation based on the MDRDstudy equation, which assumes a steadystate for creatinine. Est. GFR should notbe used for medication dosing. ID Date Data Source [id number] 02/06/2020 07:57:45 AM EDT [facility] Name Value Range Interpretation Code Description Data Tisha rce(s) Supporting Document(s) WBC 16.1 10*3/uL (4.1-11.0) H [facility] RBC 4.46 10*6/uL (4.00-5.40) [facility] HGB 12.2 g/dL (12.0-16.0) [facility] HCT 36.7 % (36.0-47.0) [facility] MCV 82.4 fL (80.0-95.0) [facility] MCH 27.3 pg (27.0-32.0) [facility] MCHC 33.2 g/dL (32.0-36.0) [facility] RDW 15.9 % (10.5-14.5) H [facility] PLT 241 10*3/uL (150-450) [facility] MPV 8.6 fL (7.1-10.7) [facility] ID Date Data Source [id number] 02/06/2020 01:31:00 AM EDT [facility] ([facility]) Name Value Range Interpretation Code Description Data Tisha rce(s) Supporting Document(s) Laboratory test finding (navigational concept) 50 [facility] ([facility]) Poc Source Laboratory test result [facility] ([facility]) Poc Temp Laboratory test result [facility] ([facility]) CP Bypass Laboratory test result [facility] ([facility]) Poc pH 7.50 [pH] 7.35-7.45 [facility] ([facility]) TEMPERATURE CORRECTED VALUE Poc Art O2 Sat 99 % 95-99 [facility] ([facility]) Poc pO2 122 83-108 [facility] ([facility] TEMPERATURE CORRECTED VALUE Poc pCO2 29.4 32.0-48.0 [facility] ([facility] TEMPERATURE CORRECTED VALUE Poc Base Excess 0 0-3 [facility] ([facility] Poc Total Co2 24 23.0-32.0 [facility] ([facility]) PERFORMED BY [facility]IN[facility] STAFF Poc Hco3 22.9 21.0-29.0 [facility] ([facility]) Potassium [Moles/volume] in Serum or Plasma 3.6 3.6-5.2 [facility] ([facility]) Poc Ionized Calcium 4.3 4.6-5.3 [facility] ([facility]) Poc Hematocrit 37 % 36.0-47.0 [facility] ([facility]) Sodium [Moles/volume] in Serum or Plasma 136 136-145 [facility] ([facility]) Poc Glucose (iStat) 181 70-99 [facility] ([facility]) [employer] Construction Inspector who read Cyto stain of Cervical or vaginal smear or scraping Laboratory test result [facility] ([facility]) ID Date Data Source [id number] 02/06/2020 12:12:04 AM EDT [facility] Name Value Range Interpretation Code Description Data Tisha rce(s) Supporting Document(s) POC NOVA GLU 202 mg/dL (70-99) H [facility] [place] [facility] ID Date Data Source [id number] 02/05/2020 09:31:35 PM EDT [facility] Name Value Range Interpretation Code Description Data Tisha rce(s) Supporting Document(s) POC TEMPERATURE [facility] 36.0C POC SOURCE [facility] POC FIO2 50 [facility] CP BYPASS [facility] POC PH 7.50 pH (7.35-7.45) H [facility] TEMPERATURE CORRECTED VALUE POC PCO2 29.4 MMHG (32.0-48.0) L [facility] TEMPERATURE CORRECTED VALUE POC PO2 122 MMHG (83-108) H [facility] TEMPERATURE CORRECTED VALUE POC SAT O2 99 % (95-99) [facility] POC BASE EXCESS 0 MMOL/L (0-3) [facility] POC HCO3 22.9 MMOL/L (21.0-29.0) [facility] POC TOTAL CO2 24 MMOL/L (23.0-32.0) [facility] POC HCT 37 % (36.0-47.0) [facility] POC SODIUM 136 MMOL/L (136-145) [facility] POC POTASSIUM 3.6 MMOL/L (3.6-5.2) [facility] POC IONIZED CALCIUM 4.3 MG/DL (4.6-5.3) L [facility] POC GLU 181 MG/DL (70-99) H [facility] PER[facility] ID Date Data Source [id number] 02/05/2020 08:22:50 PM EDT [facility] NT INFORMATIONPatient MRN Name Date of Age Gend*PT [id number] Tatianna Soto 1965 54 years F IPPT Location Admission Date/Time Visit ID Attending Provider --- --- --- --- EPI ID CSN Admitting Provider [id number] ---AirwayPatient location during procedure: ORUrgency: electiveDifficult airway: noAdvanced airway equipment used: noStaffingPerformed by: Shruthi Linares CRNAAnesthesiologist: Baljinder Levine, DOIndications and Patient ConditionIndications for airway management: anesthesia and airway protectionPreoxygenated: yesPatient position: supineIn-line stabilization: yesMask ventilation: 2 - vent by mask + OA or adjuvant +/- NMBAFinal Airway/ApproachesFinal airway type: ETTNumber of attempts at final approach: 1Number of other approaches attempted: 0Final Airway DetailsFinal ETT airway: ETT - singleCuffed: yesTechnique used for successful ETT placement: direct laryngoscopyCricoid pressure: noRSI: noInsertion site: oralBlade type/size: MAC 3.5ETT size: 7.0 mmMeasured from: lipsETT to lips: 21 cmPlacement verified by: + [email or web address] view: grade I - full view of glottis Name Value Range Interpretation Code Description Data Tisha rce(s) Supporting Document(s) ID Date Data Source [id number] 02/05/2020 08:01:43 PM EDT [facility] NT INFORMATIONPatient MRN Name Date of Age Gend*PT [id number] Tatianna Soto 1965 54 years F IPPT Location Admission Date/Time Visit ID Attending Provider --- --- --- --- EPI ID CSN Admitting Provider [id number] ---Arterial Line PlacementPatient location during procedure: ORIndications for arterial line: multiple ABGs and hemodynamic monitoringStaffingPerformed by: Baljinder Levine, DOApproved by: Baljinder Levine, DOCompleted: patient identified, risks and benefits discussed, surgical consentobtained, anesthesia consent obtained, monitors and equipment checked, pre-opevaluation completed, timeout performed, patient was prepped and draped in usualsterile fashion,Arterial Line InsertionSite prep: chlorhexidineAnesthesia: noneLaterality: leftLocation: radia l arteryNeedle gauge: 20 GTechnique: ultrasound guidedNumber of attempts: 1AssessmentSutured: noDressing: Bio patch appliedPatient tolerance: tolerated well Name Value Range Interpretation Code Description Data Tisha rce(s) Supporting Document(s) ID Date Data Source [id number] 02/05/2020 07:31:58 PM EDT [facility] Name Value Range Interpretation Code Description Data Tisha rce(s) Supporting Document(s) POC NOVA GLU 182 mg/dL (70-99) H [facility] [place] [facility] ID Date Data Source [id number] 02/05/2020 08:08:00 PM EDT [facility] Name Value Range Interpretation Code Description Data Tisha rce(s) Supporting Document(s) POC NOVA GLU 188 mg/dL (70-99) H [facility] [place] [facility] ID Date Data Source [id number] 02/05/2020 05:57:58 PM EDT [facility] Name Value Range Interpretation Code Description Data Tisha rce(s) Supporting Document(s) APTT 97.7 s (22.0-34.3) [facility] ALERTED CRITICAL RESULT TONICHOLAS (4300 220)/D4 EXT 72325 AT 1756 ON 02/05/20 [place] [id number] ID Date Data Source [id number] 02/05/2020 02:45:00 PM EDT [facility] Name Value Range Interpretation Code Description Data Tisha rce(s) Supporting Document(s) SARS coronavirus 2 RNA [Presence] in Res piratory specimen by CHLOE with probe detection Lab [facility]inal [facility] This lab was reported by [facility]. ID Date Data Source [id number] 02/05/2020 11:35:50 PM EDT Lab [facility] Name Value Range Interpretation Code Description Data Tisha rce(s) Supporting Document(s) SPECIMEN DESCRIPTION [facility] [place] COVID19 RESULT (NDET) [facility] kylie [facility] THIS ASSAY AMPLIFIES AND DETECTSTHE TARG ET RNA USING REAL-TIME PCR.NEGATIVE 2019_NCOV RT-PCR RESULTS DONOT PRECLUDE 2019_NCOV INFECTION ANDSHOULD NOT BE USED THE SOLE BASISFOR PATIENT MANAGEMENT DECISIONS. COMMENT [facility] [place] UNDER AN EMERGENCY USE AUTHORIZATION(EUA ) FOR THE DETECTION AND/OR DIAGNOSISOF THE VIRUS THAT CAUSES COVID-19.RESULTS EMAILED TO [facility] IC AT [phone]. [phone]. FIRST TEST [facility] [place] [employer] [place] SYMPTOMATIC [facility] DATE OF SYMPT ONSET [facility] [place] HOSPITALIZED [facility] ICU [facility] [place] CONGREGATE CARE SET [facility] [place] [facility] [place] ID Date Data Source [id number] 02/05/2020 01:49:52 PM EDT Lab [facility] Name Value Range Interpretation Code Description Data Tisha rce(s) Supporting Document(s) POC NOVA GLU 234 mg/dL (70-99) H [facility] PERFORMED BY [facility] CLIN[facility] STAFF ID Date Data Source [id number] 02/05/2020 12:56:40 PM EDT [facility] NT INFORMATIONPatient MRN Name Date of Age Gend*PT [id number] Tatianna Soto 1965 54 years F IPPT Location Admission Date/Time Visit ID Attending [id number] 02/05/20 0417 --- Dain Sanford MD([id number]) EPI ID CSN Admitting Provider [id number] Dain Sanford MD([id number]) Attestation signed by Dain Sanford MD at 02/05/2020 12:56 PMI saw and evaluated the patient and reviewed PA's note. I agree with thehistory, physical and medical decision making with the following additions,exceptions, and/or observations:Thrombosed Right SFA and popliteal stent. Needsa Bypass. Unl ikely that lysis or embolectomy of this stent will last for anysignificant period of time. Please get vein mapping bilaterally lowerextremities.Signature: TIMA Borregoate: February 05, 2020Time: 12:55 PM --Surgery PA Admission H&P Note Tatianna Soto Admission Date: 02/05/2020MRN: [id number]: 1965 54 yearsPrimary Care Provider: Sharona COE Physician: Dain Sanford MD Informant:Pt and chart. Both reliableCC:Right foot pain HPI:54 yr old female with medical hx significant for obesity, CAD (quintaplebypass), DM2, COPD (heavy smoker), PVD with claudication. [facility] of acute right foot and calf pain. Upon evaluation she wasexperiencing ischemic pain. She was started on Hep gtt, Dr Sanford wascontacted to accept the pt as a direct admit.Pt states she doesn't walk much at baseline due to pain and neuropathy. Does notrecall experiencing this current pain prior to last night. Pain is sharp to theright foot and radiates to a cramping sensation in her calf. Has a wound on her5th toe that is treated weekly by wound care.Karel CP, SOB, schrader, nv, fevers, chills, sweats, dizziness.Of Note: Pt [place] CAB[place] [address] Almaguer. Has a sternal wire that has becomeproblematic. Scheduled to be here today for PAT in preparation for Dr Webb on .PMHx:Past Medical History:Diagnosis Date Arthritis Chronic GERD controlled on PPI Claudication of both lower extremities claims she has never had official testing or deeper evaluation into this as of12/27/2015 COPD (chronic obstructive pulmonary disease) Coronary artery bypass graft 12/2015 Quintuple coronary bypass; KULKARNI to LAD, triple sequential graft to diagonal,OM1 and OM2 and single saphenous vein graft to distal RCA Diabetic neuropathy DM2 (diabetes mellitus, type 2) >= 20 yr Echocardiogram 2015 Ejection Fraction is 50 %. Apical anterior wall hypokinesis. Aoritc rootsclerosis/calcification with a round calcified nodule in the aortic wall ofunceratin etiology Echocardiogram 07/05/2019 Normal LV size with borderline LVH and overall mildly reduced left ventricularsystolic function. There is akinesis of apical segment, distal septal anddistal anterior wall. Overall estimated LVEF 45 to 50%. Grade 1 diastolicdysfunction. No significant valvular disease. Likely normal central venouspressure. Unable to estimate pulmonary artery pressure Heavy cigarette smoker (20-39 per day) since 18 yo HLD (hyperlipidemia) Hx of Diabetic coma 2016 unresponsive for while - ended up even having PEG/trach for while Non-STEMI (non-ST elevated myocardial infarction) 2016PSHx:Past Surgical History:Procedure Laterality Date ANGIOPLASTY 07/2019 Dr. Bang BLADDER SURGERY CARDIAC SURGERY N/A 01/01/2016 Procedure: MEDIAN STERNOTOMY CORONARY GRAFTS X5 KULKARNI TAK[place]OWN W RIGHT LEGENDOSCOPIC SAPHENOUS VEIN HARVEST; Surgeon: Saba Smith MD; Location: [facility]; Service: Cardiac/Open Heart; Laterality: N/A; FOOT SURGERY GASTROSTOMY W/ FEEDING TUBE 2014 LEG SURGERY PEG W/TRACHEOSTOMY PLACEMENT 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 > 1000 in early 2016 TRACHEOSTOMY 2015 TUBAL LIGATIONMedication List:Medications Prior to AdmissionMedication Sig Dispense Refill Last Dose albuterol (PROVENTIL HFA;VENTOLIN HFA) 108 (90 Base) MCG/ACT inhaler INHALETWO PUFFS BY MOUTH EVERY 4 HOURS NEEDED FOR WHEEZING 0 Past Month at Unknowntime atorvastatin (LIPITOR) 80 MG tablet Take 80 mg by mouth daily 02/04/2020 [id number] ASPIRIN ADULT 325 MG tablet Take 325 mg by mouth daily 0 More than a month atUnknown time B-D INS SYR ULTRAFINE 1CC/31G 31G X 5/16" 1 ML MISC USE THREE TIMES A DAY 11Taking B-D ULTRAFINE III SHORT PEN 31G X 8 MM MISC USE ONE PEN NEEDLE EVERY DAY FORTOUEO PEN 5 Taking BREO ELLIPTA 200-25 MCG/INH AEPB INHALE ONE PUFF BY MOUTH EVERY DAY 2 Taking buPROPion (WELLBUTRIN XL) 150 MG 24 hr tablet Take 150 mg by mouth dailyTaking clopidogrel (PLAVIX) 75 MG tablet Take 75 mg by mouth daily Taking cyclobenzaprine (FLEXERIL) 5 MG tablet TAKE ONE TABLET BY MOUTH EVERY 12 HOURSAS NEEDED FOR SPASMS 2 Taking docusate sodium (COLACE) 100 MG capsule TAKE TWO CAPSULES BY MOUTH TWICE A DAYAS NEEDED 1 Taking DULoxetine (CYMBALTA) 60 MG capsule Take 60 mg by mouth 2 (two) times a dayTaking ferrous sulfate 325 (65 FE) MG EC tablet Take 1 tablet by mouth daily withbreakfast 0 Taking HYDROcodone-acetaminophen (NORCO) 5-325 MG per tablet Take 1 tablet by mouthevery 6 (six) hours as needed for pain Taking insulin lispro (ADMELOG) 100 UNIT/ML injection Inject under the skin as neededfor high blood sugar Taking lisinopril (PRINIVIL,ZESTRIL) 5 MG tablet Take 5 mg by mouth daily Taking loratadine (CLARITIN) 10 MG tablet Take 10 mg by mouth daily Taking metoclopramide (REGLAN) 5 MG tablet Take 10 mg by mouth 2 (two) times a dayTaking mupirocin (BACTROBAN) 2 % ointment APPLY TO AFFECTED AREA S ON FOOT WOUNDONCE DAILY Taking nystatin (MYCOSTATIN) powder APPLY THIN LAYER ON RASH UNDER BREAST TWO TIMES ADAY 2 Taking omeprazole (PRILOSEC) 40 MG capsule Take 40 mg by mouth 2 (two) times a dayTaking ondansetron (ZOFRAN) 4 MG tablet as needed Taking ondansetron (ZOFRAN-ODT) 4 MG disintegrating tablet Take 4 mg by mouth every 8(eight) hours as needed for nausea Taking ONE TOUCH ULTRA TEST test strip USE TO TEST THREE TIMES A DAY 11 Taking pentoxifylline (TRENTAL) 400 MG CR tablet Take 400 mg by mouth 3 (three) timesa day with meals 6 Taking pregabalin (LYRICA) 150 MG capsule 150 mg 2 (two) times a day 2 Taking STEGLATRO 15 MG TABS TAKE ONE TABLET BY MOUTH EVERY DAY BE SURE TO KEEP WELLHYDRATED 2 Taking TRESIBA FLEXTOUCH 200 UNIT/ML SOPN INJECT 50 UNITS UNDER THE SKIN TWO TIMES ADAY 2 Taking TRULICITY 1.5 MG/0.5ML SOPN once a week TakingAllergies:Basaglar kwikpen [insulin glargine]; Grapefruit concentrate; and Invokana[canagliflozin]Family Hx:Family HistoryProblem Relation Age of Onset Other Mother 68 more sudden of unknown causes COPD Father 55 Healthy, No Significant History Sister Heart disease Brother Diabetes Brother Healthy, No Significant History Sister Healthy, No Significant History SisterSocial Hx:Social HistoryTobacco Use Smoking status: Current Every Day Smoker Packs/day: 1.00 Years: 35.00 Pack years: 35.00 Types: Cigarettes Smokeless tobacco: Never Used Tobacco comment: Per pt working with PCP for plan in placeSubstance Use Topics Alcohol use: No Drug use: NoReview of Systems:Constitutional: Denies fever, chills, fatigue, and unexpected weight change.HEENT: Denies visual difficulties, hearing is good.Extremities/Musculoskeletal: Denies muscle weakness, back pain, numbness,coolness. Has neuropathy at baseline.Respiratory: Denies change in cough, shortness of breath, wheezing, chroniccough or sputum production, no hemoptysis. Has COPD with out recent exacerbationCardiovascular: Denies chest pain or pressure, palpitations. No dyspnea onexertion or rest Gastrointestinal: Denies nausea, vomiting, abdominal pain,diarrhea, constipation or blood in stool or vomit.Genitourinary: Denies dysuria, urgency, frequency, hematuria or difficultyurinating.Skin: Denies current rashes or lesionsNeurological: Denies dizziness, seizures, speech difficulty, weakness,light-headedness, numbness. No history of TIA or CVA.Endocrine: Has DM2 on insulinHematological: No bleeding disorder. Takes aspirin and plavix Physical Exam:BP 130/70 (BP Location: Left upper arm, Patient Position: Lying) | Pulse 97 |Temp 99.5 F (Oral) | Resp 20 | Wt 74.6 kg (164 lb 6.4 oz) | SpO2 97% | BMI28.22 kg/m General Appearance: well appearing 54 years old White or female who isin no acute distress, appears state age.Skin: Warm and dry. Turgor is good, no rashes or lesions are notedHead: Head is normocephalic, atraumaticEyes: pupils are equal, round, reactive to light and accommodation. Extraocularmovements intact, sclerae anicteric, conjunctivae clear.Ears: hearing is intact, external ears normalMouth: Dentition is in good repair, oropharynx is without exudates or lesionsNeck: Trachea is midline. Thyroid is not palpable, no lymphadenopathyChest: chest has symmetric excursionLungs: clear to auscultation and percussion, respiratory effort is good, noadventitious soundsHeart: regular rate and rhythm. No murmurs, gallops or rubsAbdomen: Soft, non-tender, non distended, no masses, no pulsatile masses,positive bowel soundsLymphatics: without palpable lymphadenopathy cervical or inguinal regionsBack: Normal curvature, No CVA tendernessExtremities:Neurological: Alert and oriented x 3, speech clear, cranial nerves II-XII aregrossly intact. Sensation is intact.Vascular: Calves are supple without palpable cords. No doppler pulses to rightPT/DP. Sensation diminished to light touch. Can wiggle toes.Diagnostic and Laboratory Data: Assessment/Plan:54 years old White or female with ischemic RIGHT leg, being admittedto Dain Sanford MD1. Chart reviewed from [facility]2. Pain control: PO and IV offered3. PVD ischemic right RLE: heparin gtt initiated in [place]. Will resumeheparin gtt as well as aspirin/plavix. CTA with run off pending.4. DM2: ADA diet, insulin scale. Glucose monitor protocol5. CAD: will make CT surgery aware that she is here. Will get cardiologyconsult. Sees Dr Millan in [place]. Has been consulted by Dr Gagnon group inthe past. Most recent echo from June with EF 45-50%.6. Tobacco abuse: 20-40 per day. Smoking cessation encouraged. On wellbutrin7. Antiemetics prn8. DVT prophylaxis: US in [facility] neg for DVT: continue heparin gtt9. Disposition: Will await results from CTA to determine her inpatient plan.Discussed with Dain Sanford MD. Signature: JALIL Astudilloate: February 05, 2020Time: 5:50 AM Name Value Range Interpretation Code Description Data Tisha rce(s) Supporting Document(s) ID Date Data Source [id number] 02/05/2020 12:16:46 PM EDT [address] [id number] Name: TATIANNA SOTOB: 1965Sex: FOrdering Provider: EMIL Caruso Prov: EMIL Felix Provider: Procedure Performed: CT ANGIOGRAM ABDOMINAL AORTA AND BILATERAL RUNOFFExam Date: 02/05/2020 09:25MRN: [id number] Number: [id number] Class: InpatientAccount #: [id number] for Exam: Arterial embolism, lower extremityTechnique: Helical axial images were obtained during the administration 120ml of Isovue 370 IV contrast.One or more of the following dose reduction techniqueswere utilized; automated exposure control, dose modulation, technique adjustment based on patient size and iterativereconstruction algorithms. Maximum Intensity Projections (MIP) and/or other multiplanar images images were created and reviewed.Comparison: CT angiogram thorax dated December 07, 2019.Findings: Minimal bibasilar atelectasis. Visualized lung bases otherwise clear. Sternotomy wires. No pericardial effusion.Liver, gallbladder, and pancreas appear unremarkable. There are tiny rounded hypodensities seen within the spleen anteriorly to small to characterize but likely represent cysts. Again seen is a left adrenal nodule measuring 1.5 cm on prior study dated December 07, 2019 this measured 1.5 cm unchanged. Slight nodularity to the right adrenal gland unchanged. There is decreased perfusion involving the lower pole right kidney anteriorly which likely represents old infarct. Tiny punctate nonobstructive renal calculi seen bilaterally for example image #131 on the right measuring 2 to 3 mm. No hydronep hrosis seen on either side. Right renal cysts. No enhancing renal mass.Bladder is distended and lobulated. Uterus is present. Visualized appendix appears unremarkable. No abnormally distended loops of small or large bowel are seen. No free air or abnormal fluid collections. No focal inflammatory changes. Degenerative changes lumbar spine.The abdominal has a normal course and caliber without aneurysmal dilatation. Diffuse vascular calcifications. Mild stenosis at the origin of the celiac axis and SMA artery origin. Right renal artery is small with a moderate stenosis at its origin. Left renal artery appears unremarkable. TREVON is patent.On the right side there is a stent seen in the common iliac artery extending into the external iliac artery which is patent. There is a mild stenosis at the distal end of the stent. High-grade stenosis or short segment occlusion involving the internal iliac artery. Contrast is seen in the internal iliac artery more distally with additional areas of high-grade stenosis. Calcified plaque seen in the common femoral artery with mild stenosis. There is a stent seen in the superficial femoral artery which is occluded. This extends from the upper thigh to just above the knee joint. There is contrast ossification of the popliteal artery. Trifurcation. Posterior tibial artery tapers down in the mid to distal calf. Peroneal artery tapers down distal calf. Anterior tibial artery crosses the ankle and into the foot.On the left side there is a stent seen in the common iliac artery. There is a mild to moderate stenosis at the superior end of the stent. Stent is patent. Focal area of high- grade stenosis or short segment occlusion involving the internal iliac artery origin. Contrast opacification of the internal iliac artery distally. Calcified atherosclerotic plaque seen in the common iliac artery resulting in mild stenosis. Focal area of moderate to high-grade stenosis origin of the superficial femoral artery. There is a stent seen in the distal SFA artery which extends to just above the knee which is occluded. Popliteal artery is patent. Trifurcation is seen. High takeoff of the anterior tibial artery. Posterior tibial artery tapers down in the upper calf. Peroneal artery is threadlike and tapers down in the distal calf. Anterior tibial artery is seen crossing the ankle and into foot.Arteries are diffusely small.IMPRESSION: On the right side there is a stent seen in the superficial femoral artery which is occluded. This extends from the upper thigh to just above the knee joint. There is contrast ossification of the popliteal artery. Trifurcation. Posterior tibial artery tapers down in the mid to distal calf. Peroneal artery tapers down distal calf. Anterior tibial artery crosses the ankle and into the foot.On the left side focal area of moderate to high-grade stenosis origin of the superficial femoral artery. There is a stent seen in the distal SFA artery which extends to just above the knee which is occluded. Popliteal artery is patent. Trifurcation is seen. High takeoff of the anterior tibial artery. Posterior tibial artery tapers down in the upper calf. Peroneal artery is threadlike and tapers down in the distal calf. Anterior tibial artery is seen crossing the ankle and into foot.Arteries are diffusely small.Probable old infarct involving the lower pole right kidney anteriorly. Punctate nonobstructive renal calculi bilaterally.Bladder is distended and lobulated cannot exclude bladder outlet obstruction.Left adrenal nodule and lobulated right adrenal gland unchanged.Report electronically signed by: MOSHE WREN On 02/05/2020 12:16 PMWorkstation ID: [id number] Name Value Range Interpretation Code Description Data Tisha rce(s) Supporting Document(s) ID Date Data Source [id number] 02/05/2020 12:03:00 PM EDT [facility] ([facility]) Name Value Range Interpretation Code Description Data Tisha rce(s) Supporting Document(s) Sodium [Moles/volume] in Serum or Plasma 137 mmol/L 136-145 [facility] Potassium [Moles/volume] in Serum or Plasma 4.0 mmol/L 3.6-5.2 [facility] ([facility]) Chloride [Moles/volume] in Serum or Plasma 103 mmol/L 100-108 [facility]) Carbon dioxide, total [Moles/volume] in Serum or Plasma 25 mmol/L 22 -31 [facility] ([facility]) Anion gap in Serum or Plasma 9 mmol/L 7-16 [facility] ([facility]) Creatinine [Mass/volume] in Serum or Plasma 1.27 mg/dL 0.60-1.00 [facility] ([facility]) Urea nitrogen [Mass/volume] in Serum or Plasma 29 mg/dL 7-24 [facility] ([facility]) Glucose [Mass/volume] in Serum or Plasma 274 mg/dL 70-99 [facility] ([facility]) Urea nitrogen/Creatinine [Mass Ratio] in Serum or Plasma 22.8 1 0.0-20.0 [facility] ([facility]) Calcium [Mass/volume] in Serum or Plasma 9.1 mg/dL 8.4-10.2 [facility] ([facility]) Globulin [Mass/volume] in Urine by Electrophoresis 3.9 g/dL 2.7-4.3 [facility] ([facility]) Albumin [Mass/volume] in Synovial fluid 3.3 g/dL 3.5-4.6 [facility] [facility] Protein [Mass/volume] in Synovial fluid 7.2 g/dL 6.4-8.2 [facility] ([facility]) Alb/Glob ratio 0.8 [facility] ([facility]) Bilirubin direct and total panel [Mass/volume] - Serum or Pl asma 0.3 mg/dL 0.0-1.0 [facility] ([facility] ) PLEASE NOTE: Total bilirubin results may be falsely elevated in patients taking Eltrombopag. Alkaline phosphatase [Enzymatic activity/volume] in Serum or Plasma 162 U/L 45-117 [facility] ([facility] ) Glomerular filtration rate/1.73 sq M pre dicted among non-blacks [Volume Rate/Area] in Serum or Plasma by Creatinine-based formula (MDRD) 44 [facility] ([facility]) Alanine aminotransferase [Enzymatic activity/volume] in Seru m or Plasma 15 U/L 12-78 [facility] ([facility] ) Aspartate aminotransferase [Enzymatic activity/volume] in Serum or Plasma 13 U/L 11-39 [facility] ([facility]) Glomerular filtration rate/1.73 sq M pre dicted among blacks [Volume Rate/Area] in Serum or Plasma by Creatinine-based formula (MDRD) 53 [facility] ([facility]) Glomerular filtration rate/1.73 sq M pre dicted among non-blacks [Volume Rate/Area] in Serum or Plasma by Creatinine-based formula (MDRD) Laboratory test result [facility] ([facility]) -- NORMAL KIDNEY FUNCTION OR MILD DISEASE - GFR >OR= 60 CHRONIC KIDNEY DISEASE - GFR 15 - 59 RENAL FAILURE - GFR <15 Est. GFR calculation based on the MDRD study equation, which assumes a steady state for creatinine. Est. GFR should not be used for medication dosing. ID Date Data Source [id number] 02/05/2020 10:50:35 AM EDT [address] [id number] Name: TATIANNA SOTODOB: 1965Sex: FOrdering Provider: LIBORIO CRAMERAuthorieldon Prov: LIBORIO CRAMERReferrregine Provider: Procedure Performed: XR CHEST PORTABLEExam Date: 02/05/2020 10:47MRN: [id number] Number: [id number] Class: InpatientAccount #: [id number] Exam: heart failureTechnique: AP portable view obtained.Comparison: 01/05/2016Findings: Mediastinal structures are unremarkable. There is no pleural disease. The lungs are clear.IMPRESSION: No active disease.Report electronically signed by: ASHWIN BEACH On 02/05/2020 10:50 AMWorkstation ID: [id number] Name Value Range Interpretation Code Description Data Tisha rce(s) Supporting Document(s) ID Date Data Source [id number] 02/05/2020 10:13:22 AM EDT [facility] INFORMATIONPatient MRN Name Date of Age Gend*PT [id number] Tatianna Soto 1965 54 years F IPPT Location Admission Date/Time Visit ID Attending [id number] 02/05/20 0417 --- Dain Sanford MD([id number]) EPI ID CSN Admitting Provider [id number] Dain Sanford MD([id number])CARDIOLOGY CONSULTATIONName: Tatianna Soto Gender: femaleDate of : 1965 Age: 54 yearsDate/Time of Admit: 02/05/2020 4:17 AM Code Status: Full CodePrimary Care Provider / Referring Physician: LEIGH COEnformant:HISTORYCHIEF COMPLAINT: No chief complaint on file.HPI:This patient is a 54 years female who was transferred here from [facility] earlier today. She was experiencing acute right foot and calf pain.The patient has a history of diabetes and peripheral neuropathy.She has a history of coronary artery disease with CABG x5 performed here [id number].Her prehospital medications include Lipitor, aspirin, Plavix, Prinivil, andTrental.Lab studies reveal creatinine 1.27 and GFR 44. The hemoglobin is 14.5. Thealkaline phosphatase is 162.A TTE in June of this year demonstrated normal left ventricular size with EF 45to 50% and grade 1 diastolic dysfunction. There was no significant valvulardisease.PAST HISTORYPMH:Past Medical History:Diagnosis Date Arthritis Chronic GERD controlled on PPI Claudication of both lower extremities claims she has never had official testing or deeper evaluation into this as of12/27/2015 COPD (chronic obstructive pulmonary disease) Coronary artery bypass graft 12/2015 Quintuple coronary bypass; KULKARNI to LAD, triple sequential graft to diagonal,OM1 and OM2 and single saphenous vein graft to distal RCA Diabetic neuropathy DM2 (diabetes mellitus, type 2) >= 20 yr Echocardiogram 2016 Ejection Fraction is 50 %. Apical anterior wall hypokinesis. Aoritc rootsclerosis/calcification with a round calcified nodule in the aortic wall ofunceratin etiology Echocardiogram 07/05/2019 Normal LV size with borderline LVH and overall mildly reduced left ventricularsystolic function. There is akinesis of apical segment, distal septal anddistal anterior wall. Overall estimated LVEF 45 to 50%. Grade 1 diastolicdysfunction. No significant valvular disease. Likely normal central venouspressure. Unable to estimate pulmonary artery pressure Heavy cigarette smoker (20-39 per day) since 18 yo HLD (hyperlipidemia) Hx of Diabetic coma 2016 unresponsive for while - ended up even having PEG/trach for while Non-STEMI (non-ST elevated myocardial infarction) 2016PSH:Past Surgical History:Procedure Laterality Date ANGIOPLASTY 07/2019 Dr. Bang BLADDER SURGERY CARDIAC SURGERY N/A 01/01/2016 Procedure: MEDIAN STERNOTOMY CORONARY GRAFTS X5 KULKARNI TAKEDOWN W RIGHT LEGENDOSCOPIC SAPHENOUS VEIN HARVEST; Surgeon: Saba Smith MD; Location: [facility]; Service: Cardiac/Open Heart; Laterality: N/A; FOOT SURGERY GASTROSTOMY W/ FEEDING TUBE 2014 LEG SURGERY PEG W/TRACHEOSTOMY PLACEMENT 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 > 1000 in early 2015 TRACHEOSTOMY 2015 TUBAL LIGATIONFH:Family HistoryProblem Relation Age of Onset Other Mother 68 more sudden of unknown causes COPD Father 55 Healthy, No Significant History Sister Heart disease Brother Diabetes Brother Healthy, No Significant History Sister Healthy, No Significant History SisterPSH:Social HistorySocial History Narrative Has boyfriend. Has three children, all > 22 yo.Social HistorySocioeconomic History Marital status: Single Spouse name: Not on file Number of children: 3 Years of education: Not on file Highest education level: Not on fileOccupational History Not on fileSocial Needs Financial resource strain: Not on file Food insecurity: Worry: Not on file Inability: Not on file Transportation needs: Medical: Not on file Non-medical: Not on fileTobacco Use Smoking status: Current Every Day Smoker Packs/day: 1.00 Years: 35.00 Pack years: 35.00 Types: Cigarettes Smokeless tobacco: Never Used Tobacco comment: Per pt working with PCP for plan in placeSubstance and Sexual Activity Alcohol use: No Drug use: No Sexual activity: Not on fileLifestyle Physical activity: Days per week: Not on file Minutes per session: Not on file Stress: Not on fileRelationships Social connections: Talks on phone: Not on file Gets together: Not on file Attends lutheran service: Not on file Active member of club or organization: Not on file Attends meetings of clubs or organizations: Not on file Relationship status: Not on file Intimate partner violence: Fear of current or ex partner: Not on file Emotionally abused: Not on file Physically abused: Not on file Forced sexual activity: Not on fileOther Topics Concern Bike Helmet Not Asked History of Falls Not Asked Self-Exams Not Asked Caffeine Concern Not Asked Hobby Hazards Not Asked Sleep Concern Not Asked Daily Calcium Supplement Not Asked Lead Exposure Not Asked Special Diet Not Asked Daily Vitamin D Supplement Not Asked Service Not Asked Stress Concern Not Asked Domestic Violence in home Not Asked Radon exposure Not Asked Weight Concern Not Asked Exercise Not Asked Seat Belt Not Asked Well water Not Asked Firearms in home Not AskedSocial History Narrative Has boyfriend. Has three children, all > 22 yo.Review of SystemsConstitutional: No fevers, chills, weight loss or night sweats..Eyes: No blindness, double vision, or glaucomaRespiratory: negative for asthma, chronic bronchitis, hemoptysis, pleurisy,sputum production, or wheezingCardiovascular: negative for claudication and as stated in the HPIGastrointestinal: negative for constipation, diarrhea, melena, nausea, orvomitingNeurological: negative for dizziness, gait problems, headaches and seizuresHematologic/lymphatic: negative for easy bruising, petechiae, or anemiaBehavioral/Psych: negative for anxiety and depressionEndocrine: negative f or polydipsia, polyphagia and polyuria and temperatureintoleranceAllergic/Immunologic: No seasonal allergiesMEDICATIONS AND ALLERGIESALLERGIES/SENSITIVITIES:AllergiesAllergen Reactions Basaglar Kwikpen [Insulin Glargine] Itching Per pt intense itching Grapefruit Concentrate Hives Itching, hives Invokana [Canagliflozin] Itching Per pt melina area itching 8 monthsMEDS:Medications Prior to AdmissionMedication Sig Dispense Refill Last Dose albuterol (PROVENTIL HFA;VENTOLIN HFA) 108 (90 Base) MCG/ACT inhaler INHALETWO PUFFS BY MOUTH EVERY 4 HOURS NEEDED FOR WHEEZING 0 Past Month at Unknowntime atorvastatin (LIPITOR) 80 MG tablet Take 80 mg by mouth daily 02/04/2020 [id number] ASPIRIN ADULT 325 MG tablet Take 325 mg by mouth daily 0 More than a month atUnknown time B-D INS SYR ULTRAFINE 1CC/31G 31G X 5/16" 1 ML MISC USE THREE TIMES A DAY 11Taking B-D ULTRAFINE III SHORT PEN 31G X 8 MM MISC USE ONE PEN NEEDLE EVERY DAY FORTOUEO PEN 5 Taking BREO ELLIPTA 200-25 MCG/INH AEPB INHALE ONE PUFF BY MOUTH EVERY DAY 2 Taking buPROPion (WELLBUTRIN XL) 150 MG 24 hr tablet Take 150 mg by mouth dailyTaking clopidogrel (PLAVIX) 75 MG tablet Take 75 mg by mouth daily Taking cyclobenzaprine (FLEXERIL) 5 MG tablet TAKE ONE TABLET BY MOUTH EVERY 12 HOURSAS NEEDED FOR SPASMS 2 Taking docusate sodium (COLACE) 100 MG capsule TAKE TWO CAPSULES BY MOUTH TWICE A DAYAS NEEDED 1 Taking DULoxetine (CYMBALTA) 60 MG capsule Take 60 mg by mouth 2 (two) times a dayTaking ferrous sulfate 325 (65 FE) MG EC tablet Take 1 tablet by mouth daily withbreakfast 0 Taking HYDROcodone-acetaminophen (NORCO) 5-325 MG per tablet Take 1 tablet by mouthevery 6 (six) hours as needed for pain Taking insulin lispro (ADMELOG) 100 UNIT/ML injection Inject under the skin as neededfor high blood sugar Taking lisinopril (PRINIVIL,ZESTRIL) 5 MG tablet Take 5 mg by mouth daily Taking loratadine (CLARITIN) 10 MG tablet Take 10 mg by mouth daily Taking metoclopramide (REGLAN) 5 MG tablet Take 10 mg by mouth 2 (two) times a dayTaking mupirocin (BACTROBAN) 2 % ointment APPLY TO AFFECTED AREA S ON FOOT WOUNDONCE DAILY Taking nystatin (MYCOSTATIN) powder APPLY THIN LAYER ON RASH UNDER BREAST TWO TIMES ADAY 2 Taking omeprazole (PRILOSEC) 40 MG capsule Take 40 mg by mouth 2 (two) times a dayTaking ondansetron (ZOFRAN) 4 MG tablet as needed Taking ondansetron (ZOFRAN-ODT) 4 MG disintegrating tablet Take 4 mg by mouth every 8(eight) hours as needed for nausea Taking ONE TOUCH ULTRA TEST test strip USE TO TEST THREE TIMES A DAY 11 Taking pentoxifylline (TRENTAL) 400 MG CR tablet Take 400 mg by mouth 3 (three) timesa day with meals 6 Taking pregabalin (LYRICA) 150 MG capsule 150 mg 2 (two) times a day 2 Taking STEGLATRO 15 MG TABS TAKE ONE TABLET BY MOUTH EVERY DAY BE SURE TO KEEP WELLHYDRATED 2 Taking TRESIBA FLEXTOUCH 200 UNIT/ML SOPN INJECT 50 UNITS UNDER THE SKIN TWO TIMES ADAY 2 Taking TRULICITY 1.5 MG/0.5ML SOPN once a week TakingPhysicalVITAL SIGNS:Blood Pressure: BP: 157/69 Pulse: Heart Rate: 91Temperature: Temp: 97.9 F Respirations: Resp: 20Admission Weight: Weight: 74.6 kg (164 lb 6.4 oz) O2 Saturation: SpO2: 93 %Today's Weight: Weight: 74.6 kg (164 lb 6.4 oz)PHYSICAL EXAMINATION:GENERAL: Well developed, well nourished woman in no acute distress and orientedto person place and time. There is normal affect and thought process.HEENT: No arcus, xanthelasma, or scleral icterus. Nasal and oral mucosa pink.Tongue well-papillated.NECK: JVP normal. Carotids brisk. No lymphadenopathy.LUNGS: Resonant and clearCARDIAC: PMI normal S1 normal S2 physiologically split. No gallops. No murmurs.No rubs.ABDOMEN: Soft and nontender without hepatosplenomegaly. Bowel sounds are normal.PULSES: Pedal pulses areEXTREMITIES: No edema. No clubbing. No cyanosis. Skin warm and well perfused. Novenous stasis.MUSCULOSKELETAL: No deformities, good muscle tone, normal range of motionNEUROLOGICAL: No major sensory or motor deficits. DTR's grossly normal.DiagnosticsLABS:BMP:Lab ResultsComponent Value Date NA 137 02/05/2020 K 4.0 02/05/2020 CL 103 02/05/2020 CO2 25 02/05/2020 ANIONGAP 9 02/05/2020 CALCIUM 9.1 02/05/2020 GLU 274 (H) 02/05/2020 BUN 29 (H) 02/05/2020 CREATININE 1.27 (H) 02/05/2020 GFRAA 53 (L) 02/05/2020 GFRNONAA 44 (L) 02/05/2020CBC with Diff:Lab ResultsComponent Value Date WBC 13.2 (H) 02/05/2020 RBC 5.42 (H) 02/05/2020 HGB 14.5 02/05/2020 HCT 43.7 02/05/2020 MCV 80.6 02/05/2020 MCH 26.8 (L) 02/05/2020 MCHC 33.3 02/05/2020 RDW 16.1 (H) 02/05/2020 PLT 306 02/05/2020 MPV 8.5 02/05/2020 LYMPHOPCT 19.5 12/07/2019 MONOPCT 6.4 12/07/2019 EOSPCT 3.2 12/07/2019 BASOPCT 0.3 12/07/2019 NEUTROABS 8.7 (H) 12/07/2019 MONOABS 0.8 12/07/2019 BASOSABS 0.0 12/07/2019CBC without Diff:Lab ResultsComponent Value Date WBC 13.2 (H) 02/05/2020 RBC 5.42 (H) 02/05/2020 HGB 14.5 02/05/2020 HCT 43.7 02/05/2020 MCV 80.6 02/05/2020 MCH 26.8 (L) 02/05/2020 MCHC 33.3 02/05/2020 RDW 16.1 (H) 02/05/2020 PLT 306 02/05/2020 MPV 8.5 02/05/2020CMP:Lab ResultsComponent Value Date NA 137 02/05/2020 K 4.0 02/05/2020 CL 103 02/05/2020 CO2 25 02/05/2020 ANIONGAP 9 02/05/2020 BUN 29 (H) 02/05/2020 CREATININE 1.27 (H) 02/05/2020 BCR 22.8 (H) 02/05/2020 GLU 274 (H) 02/05/2020 CALCIUM 9.1 02/05/2020 PROT 6.8 04/05/2019 ALBUMIN 3.3 (L) 02/05/2020 GLOB 3.9 02/05/2020 AGRC 0.8 02/05/2020 ALKPHOS 162 (H) 02/05/2020 LABBILI 0.3 02/05/2020 AST 13 02/05/2020 ALT 15 02/05/2020 GFRAA 53 (L) 02/05/2020 GFRNONAA 44 (L) 02/05/2020Coags:Lab ResultsComponent Value Date PROTIME 10.3 02/05/2020 INR 0.98 02/05/2020 APTT 33.5 02/05/2020D-Dimer: No results found for: DDAT, PROCALCITON, LACTATENT Pro- BNP :Results for orders placed or performed during the hospital encounter of 12/27/15B-type Natriuretic PeptideResult Value Ref Range B natriuretic peptide 207 (H) 0 - 100 pg/mLB-type natriuretic peptideResult Value Ref Range B natriuretic peptide 198 (H) 0 - 100 pg/mLDIAGNOSTICS:IMAGING: Chest film not performed.ECG: NSR with incomplete RBBB. Lateral T-wave abnormality, previously notedConclusionsImpressions:1. CAD with previous CABG2. She is clinically and hemodynamically stable,Recommendations:1. Portable chest to provide a baseine for comparison.2. She is medically clear for the ORThank you for this consultation.Liborio Cramer, MDDate: February 05, 2020Time: 9:35 AM Name Value Range Interpretation Code Description Data Tisha rce(s) Supporting Document(s) ID Date Data Source [id number] 02/05/2020 10:10:48 AM EDT [facility] Name Value Range Interpretation Code Description Data Tisha rce(s) Supporting Document(s) EKG [facility] ULLHQv9hHnKTZzAel0TxCwSwYGGvVA6gyhe0L6G0uNZhC4KqzOZxl3vvC0OnK0GnREKiBZZTVI8AvFCr jb2 [file] FILLER [employer]UTTER LONG+oXDgB7cgzYoWDyTLLhU+Bl82WbYy6SAibSEVEnqfV2JzJEpt5ExAH+M3/ThiWeIBU/MQW6C+RM8 uS7e4KZb2dHO4hPTjaoSfoEvmNZPDyPcVEzTF50WVW PDjSF3qy3hoKcX8fGIwtbCI/Sz1HxxjYq6qvumgjCsvHInv2959kbUTL0LmOq6+QS47tdKzBGq06RNY9 ioClbHCUb39CxGJwrMXi1vFatR9boSOPCdWBjy7schTQTimyk22RWQdGVJdpvarQUJdmI6IgbsJ7X2du 71vfGXQ3Xs4Xzo0mIWACHljLTFxT/2croqI99DJfrk XfD566175QIVVZankgxw5VU9RuiMmgp6OBTvwEKfJzzFmH9tI0mN8XqlC7wsnfQ0cPzQVW1npbzH15Cw bIc+MDPcmykI97Jikit7GMY+TprMi8K4HWZ76MoXM+8X+kYMpW/EUPpWIkoEcaS+SH1PL5GmWth844KB P5g7GLJzhRON++U60MnDvn3LUVqpygPQLC3Kn0LaZK Vl8PDCSmEieOk3RMlcwjw1AoQsaQtGFVlc5aJL6vWOINj11fr2WRHYurQXPZsY80rD8qXzuMSIZLgzPW IWIaCTVnNAX7ZQkiuyR0yeBprAkNC9XG3W9BnYhQWO4MSU8plDDWTZbHJYlQoPhSRHJ1YA9GjKRUHruw TdUfpAEVceirkwkicmMhoF/XZFuTY04NldU/SIENA/kZ rZXgVUKysnTFMj5xOMaCwLgoGJrMShYZRQWpocdt5CvfkX0784l2elk9fZ1kPQX68fQXL4AuzTnK3bN+ nIFhmR6ZttGkSXd3mRlgC06eK5UbIK50YduYQ9MQdw3QaijPcZoDM6zUkSzrPBBd1GC0KJqRCZdiF6Bu Iz0ri2iCXvZyf3QwMUhKkYYhSyEVSNmXL1IUgqWCER iDjCcmMqhDHxjHgeXeOdqJcfAIrI0+UK5CF83FYRDz4VP7T3HIB6jlwNV6YlysVkfGWtb64OaFzapE2H FagKtOWj4SeGeWdW9zyxRrS1IyHqPmWHmNnoRrbbk1dgYwwfUUODDvyu5E8e3prkWxu1rreGBb+mDSB5 M+qHiCoXChfU7JtemUwcq4WBlQSiyZ9PlXRK5KdsQB LCbRJDrsFDxMBUme6dPTLkt2Su67QDOtq61ETFPmeAyEzhUqLRAu14iBppAdXK18ocQJmBtL1AUqBlHI SLrtzULzikjFCu7JC/Q8FugspuSpvhG6r7fpmWObJFGlnaYFXM4B1rux9SywQCX8FPAVB3dq9B6o9AuG EJrUX5mlLpGBcZT7iKIyPmwB3qtHySjjbmzHLxTRhZ 27O6bsODtSyqymnAWi+/GEO4tgGeP9rEDLLAM5IwYK3IdSWr70euOTQmVDuCkBRTHyMxoy9HYIKvUbkR CubLKpg/yNxzUR7bp56jayPdaZ5yIjkVTF4tg5hriGHr7hF0ggyV9o8ap4oxfgwCjnEJyyRvZ6iSVBip zLDI5gWtxuQ9lj/DRBZLneiJm1GF+kASrAs7CSKfTz hyf+OWUzyILv4kWGDD2GSUY2KIX1/wg/JKLZrIQ7koRoRJ2akswzPQJ6MXVwDQ/1wPRdoZgViXYdKV64 t6JnbHM42Qn8FC52d6rN+CER+bHgiRZmDyES+0UOAiLWHAc0f0HCFkHUuXXmCafOspuXDLK1gGYsmkHm qkXrhfdJKszzctL6hfQnpLafaVd8ajmlqsfnbT+[place] [file] spiritual care coordinator/pzMB0qJh70IJpekeJb0w64yuwO9D9vhfZHAt2LzmKkYYAdTDopZ+5agUjLe7Aq2g3WSMqITQXWt5 [file] X4z//953/8n/E///assistant attorney general//vnf//hNeUr1P2//xVPXAL0 /9e/4oVLhzv+qN5oisGETWg48kIERpHRbWFwdx+DR6RBpT8try3yJgY6Xb9mksN4W7c/os5Vrm3In/6O 6O+haApR83W419pj5DG4CljISndP/lY4+voHAYEz9vMhh+jOiM93cIgzmhz/0/yFRH/pURB4RgxO8d+V aaK/abVBor+mddfEXqx3xpKhitqLO4Fr/MjweOPTbM YLCr+aSH7neMsSvghzeKD80k3jx9jHa/Gd3Lc3jNjT/g2zUroMX8wxyBk4PvW+v/It3gvdg8hZF+VU+I 2f6fQa/L3H86sTni2+Ol44JyqYMbjQeNhocgM5ceI9h6O0S0skRxh+4y2+17L+jiu/f2zd8T1Ve/c4Wb fK81ojg1IaESgk82Qi+xxfDtFL54F15lK/5Ocuc6ta BXu/marketing strategy analyst//y7icoXGju82Io1w010r1FT5Wix5E6963VFf8/5+KsSu8a5sL09q7iR+pcsblHm7OpbK4kgN 3eVav1Chp0FUgG/+ZpkmKGeiHPTXFtKvbr+it6Bb00b2Iw4a05ljYE8qjGn9B+kPykF/SdtjSC8en+Jx 5EuQp7r/Ppc1IPYXgv/yp1uHm31/VFGkaQBoFW957o 9JA9Hv/B05/l/j7cvrvCZp+TtznL/I7fdfU/atf/E/KBbhd/0o3jdHR77Y/17otyfX1k/+ZKgRa5iEhV ey/tZQ9Mwrvl/CHRl+b4307POkv//QCr/ojFDYW58ZTmjzLV1//bmWS//08ipJ1dpz/eZqpnm/7w2/39 gW2RIJ45ehc27Y7j94HFwp9+x9r6tOtUbM/ny/r1cb Tn+QyJu4SIkd3/N4HRPJb6T1XsN8fdgclZ7j2ug/C/WM8szEQBFH1NNOh1/P4ygf4/exAtgv2Qamrc0G splydVbNH6Ppc2kI1SBJw1Uv3qgSV3KkjpAwC9F+uhTxinhD+JD9GzteK+6GdxiYJ7cZ+eJPtyfwVZU/ 0N8xEI/+SrD24ZD9ToJPmu/xIOS2J/DLPz9OT/09mT z1F7mH4VbfObmi4vvkSffcxl/VK81cWdgdtWvm+Qju4fQg3J8XhQCi5gRsTWmgMB6nUhHRmV09SFwlig rGuRF6Dc5E55c6yY/E72+quLAYC4dzev188kg8rHUU1w176zpvHaMG6/t6Oyq9JOGdi7UrzN1qOhRbBN 9Ij/5OR/qNehs/x+uO+73maTmv/l+Dqo172efNZ84W 4qtKg/0b7Deq1cvZw+lvVCg0iq3FN7TvvrkKz1V4PhPI6RtNqsAtyB6iGamJFTUl0mCR3G5xzpVFdU8n 1ReOeq/+GeFuT+CrarPi+wa+oj0Jvvcd3p/MShcgvJ08JT67kvk76EQ24/ey7faH5ojq77yvWRpm4Hpa 8X2t/4/iucYXnoifiI/+6zDXTc5Itnmu+uHeeKfxxR kHL0x03FLi4KaCqhGp+ZhJY06ojssztjg/YDzO+NKjv47+Ovqb+AimctcaN3lExYdLN6yPwK42///Gg4 zj06x1PwvAcnh+++l6d//os5kLS05ZqifxwpNdBh/dcNcb+OoLd/f2qye2Sn4cWuu07f/taCf6u/F9A1 /w7aZ9Vw8/Y39kwidA9buyUA+pLec63SaLi/3oLKTH 6w7a10V8UZX6r0jjwKyJ41xmui8YrgN3zJ9l6mv3+HyoWih1aZYR4TO15q09dlwM1x54UaVByt+KhxW1 PpJ9leou30tTayWatgB+hgRUIm6ln6Kf4eDrf/l4UVH/4kLnhnNB1M3ttq+n04/xIIz4/t+WbgUwE8kA FF+Z8/sPincU+dMhj1zSbNqVGuMxd1bCNMKJxMiVi8 eUhtcCV09BILK62rR+fw5ukghgj/wtRUiuL8L8N0hSpfxNxBxEm0nP+LhS9936shqkcllptss+wFdTen 8p9shzuYkc1GfKUNsajlcMAz74Dm8CNJpQebK0rxRsDPj5/DgJJ1u2G4twGn/8QPxAfP/qznNBK18C+o n4wM+zwnr/ysC2KEw0/coT72lbdVHZ6Q991h1cA/qb 7xJo7C8B/kiAm05UE4Mp3NEbPOFrj+td/b8fzyG+ykqRV8OynD/+Nck9UCw7Wg8x1zGbsD+Ij/7mOA98 5bvC+xQXciBfEWh03v+ynam/WhX+/sca6lerh6u3ccw5zJ+KoXbe9ix59jCNm1CY9KzudItWc137CX2f /QAc9552tplCbHnYsyY6rz/8S7WhhGoff6a7Cmi81e m2eXSc81ilwt3019tA62fAf1XnMAp1FevZ+qtsf+Pr0ZTVX6nircxvg+U7IpzncVTlmTNUzu/wVbU/8J VVXaHfyHkX+MpSnoGvUncRzxt+4aUmxd9gpLo/F+ivJvRXs/SJIpwilw6Ob23c6Ms+8no29Zy/pb/K+P 6takuFL9m9ssTo96nFBQ+9Hp8jrDpM2tjXO/kfHQ8Z vjS7++Xob+Cr+l5+en3brd+KRtk1hW8/+/CH9u3Lgz8qsaA0O+in7glIQ9Vw4wWv13Xiq0FN1Ej32oz/ P36776LDC/Lkfws4ui6Bz0Vzgibze+4Rp//3Z+qvKs1E/Mo7OuVKWLmoWijYTj7U1MGdVM10zzYeanYF lWYj/iC+/xfW0/+/26c0mR5Lqfnti/ZU9kz6KHL1JM +ObtYhnpzi9WMQLG0gww+PVuKrinfE5//tkyN9waU9di5PuV7UlgO9XEUh+NDhJm9nIJaMiypAsHSNq9 B+YO69QTi65Wv3/8LC+rWwppAqgV4a88K7e+MF/K71lHF4FuPARxLb+RmGvU2wdk9wg1YvB5BBC/2NPX Upggrba5B/ccMpuEvhPci62y0l/oS23doJ9s6si4zm v8r2p/4alko3qq/CEcd6Ts0P0VL07LrBugdu/BZTEY/vW/esRiI4Nt3K49k1vgm8ikl/wcvC1iZ9Dlrx 5S+M59X/v2th/q7+Q2crq1qjlnI/12P4sPlrzbW/NiDtxkYYC4cexJ7im2W82Kr6+c9J5jgyNT80ZY9b Blpu1O5QtTv/tf/3l/b6vLT/r2fuuOPG+Zi/6ohHfx X86P26A/Fjq0L3dhUuHQU2cErgee0zcw4t4thwqGg/xu8pxrmQgQ+QQ3HgxAICRolx7SiS8P2Njh5l7M eyk6r4Y5bjrl89W1lP8qK1Rn14hC+O/tlhqo60TvdFUlvCT+EqD1i7561B/dXyg/Bx47dQA11XRb8EJt +hv1ob/d3Yf1N/lf1K/VWuLam/cqGz3Vb5Az7+318b 66Lwe52Hl/sGcdu/w9/7aeheA5em6dk/U17vxJs+ZF9fPfB0xvvc6krEiQ9sJMFxa32yDm2c8UN1a/47 4n7/lybPfzM+7Iqn56B5AJT93TAJ0/hwnBI8637l4M7ssLIL+Ib6bNXGoEgu4koKc9/mAhIvcAd411f2 0w8CyDs118D2SYD+0qf1z/m7tsZNu94Oxr8i4jyhcw 9k27GhZ+vV69E54E5Tsowp1akalKzpBj/VPB/M+CE8DN7n34XvtN8NPhU+//crrPffX/S9vFRY0bX+Q4 K23tpwHtHI3qyzL1ljeL+IR3+k7OgaEo+fXiTHLv8A5/S/gCZGAyHb9jj+RlzR/9nBl6ZMNhB3hiu+r6 LS+g2V1m+wzWP9vqhHj6xi3W9EL7/KsKs3o2B9pr4c KDzJ8Zz/CWBm+JuvYh59z/MzAZkQ14K0ic1asDpn6yccrtmr6/w0MEhgEa9jPMKgfjsLpLNyM+n9u18R F/Nhpfsieyjf68z23U019k4hQQEuzCHkfd4rnAIwzxLMxR6zIxjm0pY+slm8Z8FxpYcj9rI47zPYd/e/ zSfLj/sbuVak/ynzebhfvUpxr6d5/t/Xhfmb+qtT4Z 7vq8+7dfX/wr9Ztrw9J5YC42AzG7O1HOmwEbipxd+qwhPp+60hmhR84T+F+39fVZHeEG+Lq1YtrJ/6qx vx+K8l290O+r1C5k2dCEX6b6BziYiw+/xI8/5Vxc+Wf96/umHE9/++4nxQ8/3WmRBgb3E50MpKg8HSvT Du+Mza9Tp6tD668o6g8+yn77CFUhWQq1K/WUSoE51v Fsc4n6W39UvtszJA5X54/f+m3c7R0rwcI/H0t9Dv76Pu/YYCXynwlSa+qryCcibi+3xfd+NJ3f2/r4mv nplrwkkSCy7jQJ43I3X8+pfO514+5vlgps/zwRtGfP/v6+inpR21sn+n/9846Ea5sVEffQcumhmhQdXv pxPwN1F4C+WjImnmhNc7bifG0P0lVAQHtgHV0hrk4Y 2uBoUh87KlF37SYa2CY/CFFeMK/BdWxCvSG+XB4b4Bk4zsTuD0jV1l4Svo6v/sY+sajjXPRn4nmvo/Cn rt6e6Pytf0gavU25lIvH5Ufv3vsMVdSQe/83imm8b8keCM2W9nIM0m29C8J+rGT69s2XqMDf7zQai/31 J/FePfZCBeEC+Caees0XVrGI8LCxK9/DVRpDfEG+Id 9F37hhX63v/LB/evbLa+zur+XQIvl0Hg4FM6+3/QZv/vG+5fWeqvKrxaPnOhfPQX+zunqm8ku+8j2UR/ cf/KZv/vG+9eCgijjy8o7+p8Fmm5uypcrs4odp+ipJ8t0Vg0iL5hu27NuKM+Saua4f1TTXeeE7c9zqwM psu9Kzm4S/4Wsv8nIva5KIYQ5f0/DuA5MUqh2Y7E+3 /XRZ0F7M1cEQ/6DVNFvCG+4YyvyfT1hdxf+gv9lUF/Ard7pxe+r2H+QsEw4n2bBWJ+bvxd96Rli+I/2l J/zLfeuQ99vR70QHwzGqf+5ajE3ZT42d+Y+OAd7tsHi1HcTo4L4hcnn1q/XY4/f89YtIe1FmkS9f4MCI Qbmmnk+x8xb/2G+GY4q7ra3Y+788dO8afWm7g+wxJf 5X7hrd/4/9ocPySKwB9y92IJB3WfIxQzJpoITVSbZVsjuwakvnkjuz3GODRYJsEFHX0h+B+aciV1wi+w 9Q0tko7kyE7pkll2rvS3RUE1Pa7t0G1iQ11xEP2W+42DmY8Pbo0oarYHt/MIhus25IW+aDgfNJwPWgTy +uaXjb76ixf+dRjgw6z2vclujHyO+iEgb56kvZs+7Z Vu/3ZL//acG+iqUiIPabzvIUXj8Um/FUv/9ioTyEd/4d/u6d+ulUZ+n/96+ozJDGhj5R/76/Bv92+ifJ 93e/i1WntBp0T/w0+6/Tf86/s4/jna0/tf/3q98q/9Z110xaAOw+/o7NP9+F+NLHP8r+Z8j919i6QTzk //1cq6P/3qbIhP+mevON+gH/+co6PH3Ry76ng/ao/M /32/1c7jf+Ul//wbYFki3Ak0+F+N7Mvo/ZEf/Ot9WnsyJ0C7+bU1aBHHDcqDs/st15Jb7BvuoyQttbk4 Kz/flx/0Sc2BlpOveking9N/0g47Va7vHqd+fxu7FmBf49/D/8rhf+ViKO+Q0/PZJZDf5/tzue828wN8 n32+41JL104A0Z/k529mktX/scyvaq30c29g5UV7dh /12ftfT/0xz6B27ig7qYg7m/vRcYq1zv5+X/DV5wu+2h/XC20iEsaefBwdOoj0jdXzOz9T/YM7AB99w8 DfZSiP+ntlaj9pt/rjJMRsV65VAx7JBStwxX63bvep476Z+YLy6C/0K4d/i1p69rr7263JI6N3Ll6W1g HvKN/+/I38K0NsUB/7I0/96qZbfulXmT+QLyjf/pNu vR906/2+5/kjJjs56i1kObn7rq82Ug/kdObToDca509Jf6Tq9LlswGiWvyyra//nuW5Ck3J3/tfzfLDS 8vQZ9/xv1ivmwUdW8vwiQ/PF0wB9xvBBFu+fXurn/jDfDn0qE0xE9vx+EL1BOU8i745+3B/MszM/9wdT 9/Mhg8FTq/bIBp8DY/Vzf/HWz93r8StnTIom5Ucyi9 vvzcgL4F7HduNVaN/+Zgc4KZt+4Wm/blRyf12c+kXEKz4APH/CeyDO4kc565/K211N0VW7XVsSd7j/qj TmM+xXDvuV1/qavsfHF4pEPR/9y7yqwmI4Itku8KUKcrCW7i0yW1v+GGaay1t5B7jvT+X16zKK/LbXxd f7/Uj/qyrjkB/SY2qDiW2xFu9WvJ/pJqyHu2xN2ECE UTK5JC4cfrC+GgT1DBm4E/wdRKvIwj5mANJg7ruWs13cFmFHR54K5/4RCvmOkU3hlYrubW8gutvtFFB7 fD+k7c8hC+DJ5XdOeGtW2V/p/8OHh2ndaDybLbOt0I9R+n8UE/2F/1XA/ypm7/im5t8iAqysjJw/kd/2 55gLcvB+J+mlkNxrgX4K62nscaEfPuHc/KZm/49i9v 8oUr+KSr/1KjI+w1nDY/X6HEve+zwYKpyQXQYTw5y75wxhQ1n1fj56jCV+a6HFnTfpqEM4Hb+fPSGWP3 +YFSW4yYBR/9pifg5IE4xXGkacc5rGgj/U8J6VD60qp1g3ieg9/b3plp/+1vnL8n8NCI/2/NeErvcfjO Pfnv/TOP7t+V4BsX3vBFBc/1GoI7/p9OG10i86rr8O wsHLmS2Tvg4j+2RY+0+H2fc69kpJ7i4mhL87omcqL58XJ+S3/yu5R4e9JxycloZXuYRUbLFq4lucpE/z whPoQ3C8zFUkBhcu/s/hvT8K7/YepJef2JbbqRN/Ib/3g+LP9agh4M56yXD00f3xLn50v6W777vhBdK/ /veyuu7r73NM9X/6bBxLv0oQZYEQqEp8v6Tyn8iq0v v+HDgfjDwfzHUG+sWwzrLx9NSwHm5B11+VdzHi+F/N/Ecc/7gY21imk9eAj+N/pTn/j/+RMo18dS6q+F 9V34//6H8pzTR/8CJdBzda68baRaa/alX69/2LqcijEtJ8f9h6DuPXynQ5RlmEc2j4sXnB10QMg3081U eRSv/iu7z1g56R/sC66ZhQhbZ/9mfYX7/fjfuDG/7t ++v/7925gkR5/2h/dD4wce3q5T/7T+7PIL/Pu/fX+9/9OfIDctq/fX8b+e0/uUfvf/ki52T0yc+7Ef9q B8L51Qcbr2S7gB92R8nn4Rf19K7CkTHfJv97nA/77Bv+4KgI4sL+cc5o9TZiFioqmtmdngujb2c876nu tdMT+RP5eL/GpygVErkNL1t6doaM/psato7QI/1kS+ gtZsC0A5/dTz/Zs+9LbvhfbehXG/7tO/Jlx4dk8Q6e8lxECy4yygY9O+UV+dt6yXh8+cKe7T+5U7+6ae NF5wE3V/m9H9wV/4baHudk2/c2PwTItccvO4zSiU0k2+dHO/Wrm0Z+0jx9rj6vR6/Pe/X+d6d+VfLR39 FqCce6a6710m18c01MnkX5dm5D+TZ95Mkxl9GljlHQ re87sbn5FaN3wdg9sw682ugGU/Jbn9zn/tPtqJmuH4amdO/5u6rn5iR/sMqc+4OpZ+20W4ijjikLS8kX i+X43aD1eql1lZyw3g+7HlHg9dCk8iw8sey76AbMOhc/ucd1kpr2pe/ztvZ/1pq1qO15v7l91+/eeT6Y 39njf799XGehT3kmw/D7TVwF0/81zxBW8xFbALiK5+ T8ulekumc/hufjlO8q0/vdO3p/dRT0CXOH1K/ko7+B/qZ+VeXx/dg54N4gR4DG/sK/oQgEt8W/A/0N9B k2nw716D9BG6n05jsUi/wMhmZV6zIJjrNpx/eV/l59skxC/AGkDb9T//bKR3/f833d5064+qrJ534+bv R39/i2d979xi5QvEJNGcS86r7SdNfpe8pi8C6poPId yvnjG2amtqssF5rTJHJ7e/lFoBN1WiNdFBkZAZypFoIFoO3vteTFPkS4ZsLfTHyFm7OcDBte/1h/RIdw +BFvDfkj+wEBa3lm4G+aa5dUp9vu+Uulpnz1Y/FW5j/ijMG+xO8M8+tcz3Sc4fmfrNi/iN/0z6JmqWq/ X3InUx7zxjOpPI3pYxY+Gj+ThK3dUOOA+43BOHrWHx RfUDsWIA5I4ieSLgxii57aMTwDZ0utrCNa4/x19NoVWg1JbkTJTBVLSwPPNXWMVuVSmpdzS6MtxUi8/i R/bDIkZd7Y0McqLru0Gr3/BWhrfwS/hdnr/yyCG2V5lLte/hHjqZw/0xict9WcCQ/E077/iL6G+SOenv hNwZQ2ZubPcVb9YcwLNGafekIw4nn5KiyP6WVH2Ge8 bpkq3EjOHdJw/Y5F0NZy809LYWA4xlGod+xwfP7VlbQsrjtj9cZp1dvYLyfZfvbZfAdsFaMNb1X7+7PB aL009Wn8ZgmYAX8o/pB4clHICKbNG0GgiK+B/fsMp2SUJsq1nCgeO6V3wH1uB2rFIu4gEmW+Z03iYOyO ozrxbF81vBrs+klLQmJxg4L0v71WwB+jv8JUMlx+ft KG4D42r0OspbvhG2knYHbdyjrm1Ri9mqjq1nVGxu46He+2eVE1ZaJW4ls9aqT+R+/zW+wVtgqYOIe1ci C1YhEngK+n3ulR/rw+vdT8eR53eq+r7sE6PcyuwmxvlR3Z2Pwz/SSm9VyJAjEAoRhk5I+Q46UGfKzFiU BP/F/NsXGH7hrE6hxh9JCHH4OiIWjYQPhfbKSwTM68 q87+yBmos/uc74/fqhyXQRsjzOc6QaNVe55upPyC0/yl/u5HdzjVHe27Zp9C064Sb6Emb2pA/xzOdL0w pJZmdL2DPw2WGXE2UP0LctcxpW6+Q5XSDk6qi3KUANieGgrsFy+i/1MOakGG9/6W6HMD7iOKEFHYR2en 3U2oA3cCwawRZBuU+PiugetTKn9RizitKraT7YfdCq frHxV38Wvq5oN39Pzbnj9Sr41dbrlsGptT9Vqp35cGnKZpER9ncIM3mAv3ihsnna1Om0VD7lzgRUcAuP QNehHlwCPRaB0L22XWUGPiP3x7tLkTYA2HcywsMiqg7sQmyJcSe6B2UXwLn9La/c5Zp07QRw+E5qKbgL 2GY6+A8uUHiKEyn5NQ+fdv6cjb3TxC5vSV1oNV7Otn kC0JYhzu2fp6udcGpNvJtomW8uYsr9u25f3D1ASL1YaFjR0Z1qXbTexco20RZ+gPUnr1JcPr4hImSiHM fwXR1wnyqQyel5REqkPJ23LlpCK0XUM500JnpVwJyclezpEJpVTgCSQDOPp4GHzZDUGbU4S6hsPS9k7E 2dAHaRZIQXxEf3jmoFdjU7vr7BNHXUwh/heM/wXjf8 H5X/WD4hccXMimCC8wNUalm+FEMW4RyVRD+C2wZOaz0ZbX37/GkQY762PNzVt0jH2vnBgygQCLJaZDxw PhR71M1g86BTOm4mdWTtnXKPJY9nhPq0PD16MDMANZUnXb1F7heNqZ4KuHrAms+pXscfU6FddCJXJ/2P fA6kVTExdP9vvCGB95/34h9dCYSi4ak7anKs/HOrrj GfHHiaZ/cH1yfF466Nd6+csLvcVaD0tJbhy/zEuijU90D78Y+s2IvwWsX89rZ9vPE5/dpKxDoXg38PYl m9CJrX+RSofHYlhsUGnRJZhEUKYCK8Tj7Kmr1/zSzxMOI3vbTNmGJOIMX4qGfV03z4MMH0jRaCf1GQZg Y9jkh6Qv2HUCliTJmZxAaL/Q84a9ZzfTSTn/OB0zZW TQ/kpCmuKS0fhgXjUkthid22afJCqL5U81PClIYQo/w4N0vbY7/slQNMTIYLUNRO8wFAQYyoGeDZC/XO LYKUqAk+OsE+NV16Rv54Yx+WbI9Pr4u7OgE73S3cKpVLBW/3DGHNgIlGXT5nupNJAReR9aPAzuFUvZao 7kyCPGgZIB63/PwmlK4A22VeM/Ep6bpU3NOUP6rERV JsnekeCMRMaZyVLqNY81zZxK+X0Lcp+wlHY1czn/KNiWIU7EuwrV+dRhFgg1DddMAvo+Das6v/Vg3+fE dqK265D0mcKrihGe5Nr15JQ8hNRP6S8y2ZmkaX9KGAuTQWLKIWtA6z/IvLpa9wNRk07yAbWWOKA7e3y7 BlXLf9IQNAoILbwA6+ksihlyhQVqgY7yPG80ZmBS+N vg44EMyWSXDLT35gaPX3vI6l2pC7cxheCwjhJhBLmgvbz2g7zN77+PbY4RPa4cBRGI5ZRml3wTvEtQt2 oF9n8E+vQ0TnB3A52zQTn64LgeL0/TWlapZJ8nvh0rVacZoPGzFAOLvUJUsT9gAa5iewid1Q3vaz9/gn U2W9D+46MC/k8PqSWenPvRL6BQVqJ2UHR2mL8dITB/ A3Mz3gviO4Ym/0loQju4NUxGvoLXMtIqMR+yeabzIJFh3HRuWW0QkC72AigbTv0Ow5amGAj7B6NqZXeq YkMOyVMit9VncTf1g5PrRSzbBCT4WNH/jWXSXp5ac96zKJT52DqfK38LCkts6zdmRUayuaK/jMFEAJAx EQFkzI+QgF/2SE87JU4ryEEJ87YA2KLbuT5wt92BNk iYMi7oyVA84yhiaIUinWSmTeEnEfOFXLYhWAxKgDwFpOERMmcPI20cDjIwQUmUxU1lwBB19tiyOZcqHT noSzgJ9bgzS6eGoD9stKRlgA2BzsGAyfSImqO1W5GA2zHN5ncoftYxLl1Tv+ybQ9TaEfXkq3KsLwSF8b wDe+NdIYDRhywoE4nlPcuOSoS3IJfob12QQjQW7Gbl 7FDRgCXy3JlX/EebRN5K5KErnVox44HZ2gonZj7LDiLIEfVKPNITp4gWUAQVp/yjGcWReE1mKbqrMRBO h6EgeOntsKdxmDvOO6AHTBOpYyzV6kR/VlNAkpBMTxQwPZJJpU6XbyuCqsWBZ2FRUTEAC5xuCC3Yr3Fa ILTvGihvQVUO8rhbmB3bJaMahbMIziFaAeW4alkK8F dhlWhx9FnT6sgyjUDOk+MU8AsnlaCH+JTF2hoUfI/Nk7UNiujkI8g4S10EqcA13VuxkYztimMiHI7Viu +vpxbnQXaAh6Sfp2/rs4Ncy7PdF21xV8vTM+6ZwE52qSK1t7EmI16W0REMIUGXJJ9QSe3jM7drX2qInf m49dp2W7PxMejwJbO2fr5eWLXvC3MUSRp+QgfBoDnH kuATOPwlP2qH00zGQBY39jZo4UkzzQPkcBs3K1Yr4UiiyWZRTLyPsWY+qJty3tK4W9aGyDgqzxwWT+cl 6CNb5OAz1xjDGNSqQ63cvAGrKQpolx2s9of3aK48ylEypwX69Vc3q0Du/jbX5qkQc5vCntoJ9CsXwdno ixUaFnmY8DCXG+FjyOieW21dNP2KVGMqDNiJi5USZL HsGy/eLGNbgLRBT7DaZZPFUyMKdgEUKikHEgmZQ81TlP0ZzE8obeQx8BhFFOlQI5tZEfPexeYdZW7Zmw sHsLbmM9ItQOUABNdUn3zIPxoRxKBZuRz/6J+40j/QV0fpN0L2II2xiuXNRvSFldGHqETIZwyAN/y+BZ J4fr884Jr6cFqp7BmhnkX2y/STVfTPi1Jn8PKtWEpR KfLpor0DxfOzKf2xOQsTZHlDgdO2Ji9pONFVI8SnezSihjgb1BQVX7NMB0Z/bTQjoMQN8BbQcgpwBxY8 PqNnfBIBwQsdocdSo2oHIin5UKJijGSR6te0w/THCcI6CGkX3wU7YiTaXsiXIt2NBevoNteiCtgxgZ5X 7Fds9YTsdV4S5P6FxMzvqlVXtIE2PKXXQctR2Ysml/ 0ey5YSPqSIgkAq5Z1OZPpEXU+TnIlxU/gjFZrCLdbhNEbhKdSbS//Ey+oZCxZbLH1I/7JAZ52zRXWwuy oUHzRCJO0RZvjSH+WMG89NZlRi3VxVt70VXXOOhiKSwxKLsXTndv6SWjwFtoItfgz1XkDR5B7f9WXk2c lL704SnX4SowB13lDZYcvtnuAm29QD2bi7hpoi+Ig+ o5wOT5Iu0OkuH9sO9PgFfPBmlOAy+Z0Vajfpm83j8hNgrKgRlsLn4P8+ZpkCH9N6jFS1Of7N5baOrifm 73c7NoyebvYCcvrIk6dLLr8le6CObdCJ7BWevT5eaiZeYb4Hx4BVkLrtFTpbviLQq5V+EkdPfMQk5+jK 5sdJy9SxMCo2IW1cF1+fOtNJJXJSnW3KR8riAdyZ3l Mfg21NarPxDcndaWhCU8Ok8l/0YsP7f93i4xfkfxjE/wTSqC5arHy1zUcVZeyXmjOh0HqnJ29t/TAP9H O2oC/jGr67Cs7Uq9MTI0EH+GgU0V+S0e2kX3Cz6MloPo+oI2EYAe4ZIoYf8EPwfPPX2cjjI72jB7qag9 Q7C7uIF0LcG0COnlNmT42MtTCr9C+r7W0VDRiJGYmA pnS6UdhflSg1zFUrVF6IojnRR8P2qrM12VVozriVs58ZF1ZhiLvF55V/ZdI3SKCtZuMBbq4rcT9fH1VH 5cuvH3lVlaTVkC0oFn9SC1fCuPc7SCaYBOaqszbmI8X9lZuWkF2klRAalg4UIABNLdyXsDPlNV+j5Bg5 Ro6T4+ANC01Ms9Andew4cfA/UemfqPRPVMW/UVUwqx S+pzy8GvM1wRnQI5Dug0R5Z4edpBwz/wGGAEGOk+PkRK/+Wt8eiO0P5DeBAHNI/0nEMXA2Oj9WsQ5fZv Ox7psxDy2GV0ZqHsTpZvtgpPG0lVt9hXwLzyxs3j7jY7+ni4IinLXk5EZeIgMJAt4rWlhXsA+rbb5nsu oJxgJuIsj9QsQ1u2ss9sXY9IwQqAMb1CB2yFBeUvg+ nMzLBGYwWIUsQeqEvRCJt3SuUfiJbNkgvxedXlqNrKOwCphfJRQMfYMMNRsKj0XcHXUchpmWfo2dUTCT EMbslwq5ttxUwhEluOBC9+RNV7BL6JSfyVe49AGjpjPkmtMoKgq5aFINeWM1UMhb2eultP4aFURrvFGi PxM9ZMNZVFBBd1AyrLeIQTLatqLKTFBYsUy20l3fuh V/HfC2vZNPzFgssVy4UbhrQtv3RUQWg69ryxQPKW7DrZAAwJTRdtsp2kNujGptuDnYDZ5qqDDPssIuhL 8rqY0mPTxEX2WW7DJOJFG5n8fDuS/sjF46zxmZJUc9MvOf8HmSm3PmlkSJumuGbMCYsrLLI+IJ92MMBE sHXlYCzLeOHEz4KfLo6jJuUtLEg2tCExoyjYFqQLSX Us/Vu6IMEPf0eWUOgqMYCbKtapFHaNGtrAE7uX1kXQguKPy6VKICNwI0gkyRYP6MCnscVDRz/swogIpb Z6E/MAR2RoVeJsRtXwuZgnFS5oVFQMB2iJcGOCL2qXfZLH62vc4RgginQkComQ8HyhRCOXaOZ5UgbaKW VoGECjx2ZKBC/huGyH+myAuwg0toLF+UHItaHb0G/o wKwCJ/K1Z3XdRKUVRluBOhbDsMG4L13AjPNXSZWZ4GodVveT/WcDzff42FzoHONnXrtEQk1La2boJjrn VscNKe+AhIU+cOxZzzIRULskNh8BkI4unMkA7paG1NKLcU3nM6EGSvi5roIrwEFuzAwdzyzmTRuag7zh dQEIMc+MTETNu7C3qJpY7tvAxfOdLmYfumsRThCcQa J8xuAURFZdBUL2oYxmhCihvZnEOK9Z6AZKwgn7EqJ6HNa2zlCLK/5OLA159VqWLDoHd/MDAuschZrKOU dpqq3rsINwdQpYQrEF77K7C6fLaGxzWYacY415OQqzQ8x7VM2LlMIKgV0R9L3W/O8Z6qoTaeWRHwX5Nc NnW8OinYt2+L5aD3Y44+iUb/WDkrC2iHJ7f+iYmRUa b83L92V7p/IXoil3g6G7OWf90XWF0UXiicWdsaKCygrKhsP1556ecL9GhiR9raf8lP0mlS98297jqgW/ +EEU7rtc69QH14OI68NS5bTNXUgRYRjbHtfekclTYjCPwPvjEySMX3Qn8n+rmE3Y4HHl3XXfD8s5Ckdn QD+oEP+Ha9qVpor99DOPfDv6eEgIp5lDcOCLC+FjmL p9ZQPFPA15uZlyL0wYV8sNIBOxrFjNG3JEnvK0YNO7htZaGCuzZFRVcZEfYzWCQTLfsUUA6GuLm9tATm 15zt6dbJ8OXNwP9acIM77IWlmUYU5HYl/olO/8WoZRb1dYIAayeh3KeVkD8aY0homhgRS88BCmtUKZq4 fX066+C+3eRhtFmAU2QiTl4XQEt13WkxcaxC9KyiK5 3xagBgMevSJ6uC2JyFwZdV4eSfGUJslBF7lr6sR2HjG//LHkcLyrMnlzhFQdKMczI5AI16iqXKKVrEBr W14uplQWgF8zUZvyJUPMwe51OHiR1M2RccMFkD0WEkEUWC5uscRYpKVmCvucCsjPiurnTfjwjBqomlqR TPj0UsiZTj4TzEMLehPIMZN0RiuPooYGT7FaKxeCGz eISxjpHjrOPkBDnBFmxK2+IaxExhiouDA3D3yuCOWTzVXm18PGZuE8NXgq5LfqYs3kAkmhN0P+F5zCL4 w0E0aDxoq/9Ok91oPz1FqndlhP17GVhSYAzbqjTb5LtdUSjvg9uL4VP7fIP8tG25rwegN2vJlQ9CpMvc 9L0K0E4tmwvF00BUiHOtBm9s2+oanYDvvge/hWNP9P yHLD7EeqY4qmAA6vY3mQsq8KywkkIn4kV9vQjx82PvqpAXkaZ0QNpEyh3C88MGlJRJQsr0dwfHowOmDX E/9wrGaQm2DbwlNxqWuqyt7zig1+d8uX7psKxpg39HPoIEAS10EHiHO/FOlyCXYDdbV7qFdUH6lcU9qV Yut7FVauE5vWcSdNTEwmowEH5ucPWcoqBPmXPQjXzM swLU8mu9rKSWpRpf9SyGeLAHO2wXcFzqP89ztHdreTB8AWvcQolhYSMcIvdE/z0RFbEQD2poykeLETux KUtweNzBwIhIK8zFAb39Y0PvGVSQR+Mod4OX2WNqngJblQrNrQKLuCaxALroAQLDwEuFYPH9ZOA1OTVV WbKKX8M2EhRoKqvvDgEdTf9I+raAl2MbCw+0gg+Steph VdFkeVIdAmwjCzfrUGqfBA2eiXZVWbuvJvdQNVYdjwrRT3vUXlbvOCH4LELjnStasCUvM7WTLMmlOlHn a1xxE8ELo/YPb1J6MyriMzG0gtbB7wE3nLf64Jsgp5CweuwvKxdieT+6Zqm8FwMU6H3vEX9aNyWZCuWb aL4aDHd+PGqmOqNUH6v3ZGvZDYUTfoM4YOXZO+qqHw 5CgZzOleal6glX5wO+MBOgaB7L4tuw8a7HfR7XlK+04Y5hU1vumEMvBIR9RbPP4zbTPaXJimOdgJPbMx yXLsKz1lXVOlZjCEG+64WyCvh7BtM3u2hwyDqYYBgX3lMxPAe+giKAZ3h1S0n9Pk23pPlSEsAVMAkqU/ 3MiNe8ac6zPgScWzY6G/QvDfWOfOVQdnroVSUqJjkj MxQxg/AEFN8qDxlHPifCzZmGPkIJ9TjSVHBDEFfeXOYD0pFh/iwBs2jcz2lxjJAT9pxm6xyY0lt0DBeO 7zWJeLdF4p7Fa3TDqOD0LibKshpr0JRIE1itFP0I2gWGlIUMXtvQsjINWDKRl5WPeON6ZEUwXoFcHmMB vVcvuD0HFDh9TKiTka7u94s55e9tRc5mxjmP+86Z+4 J9igttaqKzqFO7zD+HvpSTfqgw28J/tSTeistUCsihXTopiPhpu5Xr8qYTZraPw1dOUwExuo0Sqsuiwo Ln35N3B/uQCQzsfFS36ZljHO+U9J4eoyWDb3bP1e0ua9clRlGlz+C4V+IlXMe/eR+Af583lReYB3E8HA XJLmPwmQR1aSzNqJyXsZS7hbGvJULbwULbgmXcMNgq INtFiOMBMxE2Dncqzmoyan30p34TRjHyKlLdeIyXMFXVfa9XNzRjfhne2D5HCszKrKU6q1MiGUZDHPLI iwoSQ+asZyYvtBHT8mRF5w+OvKVMsAjpv3IA7opZnJSvXRTU5/lmvl1yyJNCO8wQjGLX9KWUyKyZYVxj oegz8gL1zM4FRugOMn/U/ImON1ZFvM7Khreg8dZD1c VtaUVcwcDmnpJK7LpmsztQ0Sc87ZYRdnqp3m3177dLQKRS2ws0fa1pmgnWIHqRbQWRLNGcJJ1XEKnCcT NTnh3fSjHYUIoW3QlpkDkcjCU9p689Cr07GuTHl4v/JOSHUA+A3D+w+40eXqwig6YoiZjYxEYvFSdS3eGkd 2cGvtxYl404H36jmYt8AzbsNnSKuDnObtsdEmSbIAH z5ySrWPrhuoO01u4LqUm1pqyJMGnVYvEr2kX2yNiX9ZF7CHpJcSOz0CXDgh1JTlapRCKvqmiVGdcSzem C4KDQgpjYDnSfiL1K21le1xrN9EZdG3PBMaQX5Dsg8csbOLpFq+OMYdmTQAwNKV1VakChvb+Y1xEQdKh 5apEGeVJOE9qEwFTvtl7uS2K+GPNxC3P4zB+ KQJZeAtzer15hJ5KdQyvvhpNt/XFYNh4W2YDF1uPl3vXI/ZE+WBPlMJjuYSRY+Q42+zaAHgPz0BCL9EW n3PlVOiFOBLMEbBlEPI9ejVx7gbBSdu5+MTHkG9dmLE5QXywvfGsbn8XHcZ3ZHOQS+VLe+ItFmxB3/mW S6m88qqVxdbE31KiPF6lLFTKM1ui6hjaOP2vsUNM1W 2jfPBPlE/wzsto5Lp1sOG+jbJPy27RN334La2M9zQcmI6waHvmuB4knQ/+euRhZxWRO9dz3HeVahKhOM 3WhgUZ2fSCIm4IuvHG1xh3clxYolFibpUIs2GVMd7UG63CXLhCwIEYn7F3XH9Ur9PbqlmVt4ggBOJCB1 lg4hKWdyN4EKxNOpx52DVXnaJ+GW0F8vLeLH5Tr2Na aU+olmL91LP1gzFAy4V6wiFm54VZLf+L17AmtH21JlacIDiB5Euqv7R9Ygz5VMzhIYeYbkJ18e57mEOq 0hqAZBY5WCkoxYX85nwISazxh3D4KvCdHEB0OxWtDA6PufIr/zhJP4ItD+MY+Iw8qcUVyLfAwwmhJmfk E53/TolXMRgm4ZlQGOaN63B6y2UPwIpll6AQlW+CB5 +eMRsyZQ9FUwrJdIVt5SWFpcPkqPm9FEb8mcvqc31ulHATqe5jN+InygdkPvngnyhftK+ufNExouTL+8 9Sg4Dh0q4BsfZU7jcO6lAE00i86Lr+6mgk0oyw7n31qaa6D17q+06flGm9odLm4X3hZ7lJGYuCJC7RB4 3lLFa6TFjlI/iZ2VDzVYtwspph9esXj/iJ8sE/UQqP zWBxiW9JEUYkXMQ3f2YFvq+71NtzKiUcT62MvfJP4aLJotZaw8rd+BYKj+InCv68BSgWyarzTCwCOHts 1HuhhZmHTYvV1HHY2nH1tyjBYaQJDDJR7MImjWm7sWDyyuTpAROMBKtBpqncm1N0Liq3h9QMmfGoykNq sQUJOLUnRGmVVZjQf73shtTSupusR3+lHxqUtiltgy ObMsD1JhvLWBZw0XUaGRiWI1jS6TswIhAOYSjjjPmBAIz6YscJ0QXtYLaAoZLsbwMNsRbrP7d4TqHSk9 S/wkUjLw4EzL42RTkZOZ/M8U/UjCCOyVbH9BsTv8XSIdP5L0kixclVRoREw4+i1zd3/BMjivNbD/aVdu 256AjmkYv2J7oGl0Fh26u/aP4KhuQsTaSfqefVg3GN 35RV8G06FiXXb+dnkCEbtbcmMn2ik14wHyRlAyoNqWId6UTk3ErpDMQeBUTQWGMCe5JayOFfDEBK3tD2 vMgV0v8bbKq4yc4vA+4RfHoxU9q10xOeihanW7gw0ImghF+fYw2r8m4+OTXYG8aG3knvavAy/RMvMbG6 8NEtwsYg9aEKzdOf/BVrrf63PzEvv+QfMDM2Q8+04H FRoI9VrjFmI2i+1IF/rtw6X7pqkY1dMwZ9Y7DkPfudJHa07SXidfZCgwZ28hWhfijWmwQONbQOrNyFWx cvS9qetOIDSOR1Fm790hX56cwAdLZO21n+Mpz/hbPJ62w6KWdZK91WSo0PRsdmQnUkQA3xgiNXBU2pH9 Q7KtbPf5F4U1ErbhISlT64JYhnvpmcT1pmv8WDlL9T UKes6buELX55T1mWxlIB9mSD9G5dYJpBiJ4a+SimcR9FFgaUU3h8c2OAz+Vy2bbUAvM2ABPrdhquYGdr vpq1j9UNpIQoDShuP63YDR2v05PiQudY1orVnGOmZK5nqGlDXb2sZD0sUPIikZyhrWfv3BJszktZwsIN oeB5mSBKb1DCmAEkLDd+PB9bRsPknN2qknfE9uTvn7 v8GsB5tX/S5BfwNdXKaDpz36QQoZABLp9jJaLVQmiuUQNZZY1xC2Z5DRkvmvgi3g1SsgD7ZQAPLBQYUL NrPrvoKLGS5Z0u1XtjU8XJ9Sn5nfEHs/QJ6tdbjS4vH4+sTei0KfCgOPLR2RfMj8C6AqPaqMszcLJeCJ RaPPlZREpjWRhUOZeZePqaPvBgYAh1gtcUcNIe5+QY ZBGL8YZfqqrTMbLIPgwvkP6zfeQhI1cbekUAKbdzChyQslV3LhccuWhUQqbHRuJVbXbIVowIgu6INBch eICCYE8B9waa/e4v4Z2gxzgQvYObURKsQKU+L1wfRB1L4ZxJNNsnVPlBwpbMn0RhDs93bggduDIjQPUq KSM4uUU+F4z/EwLBDMZocUU915xvlqoaNGK2h3ae0a dfet554/fLA9vVBFxl6jBORPshzDnR1+sVwR37S7A4bX+roqfZqemWy7i0qMp2qJL92cgF5P5b5FrS1k g1D8NYLZJ+40kHP2Ak1xk/An9Nb/xGEV/4z7niD+jKOsY6/Dc6/19ZN7LHd8WEgFkxvtnADnbXCuFSkp TCZILbnxnQg5RBNIfFdpcD6sQ6tVHbgoSXlhOdvWVL 9NJAQxgIoVHmOYmlO0sW9qUBbKF39ibhdSM/1IvrEyZn3OhZ628tmr7kc9oDglV9kowuUxr9rhZovFdd LzLwbqY5ZG7GviBAfG5tWPh15uh61f3xcnfTj++7xpG4Xnq2CT3iUpk5wUxdFNnpgrsT9rd0cWz6sLj8 EL415vykzkK/9luXwmPJrzHxWPK+uepVb7XQuksY8P yqQ44actDiQxr4Eh4aNTJxW+IsQA1hqmxf+8fH3MpZPqrfIa6vuB82rboxGs/FozgnNlB+tInHslJtTT tAtsdL8M5lDaljYNyWsNZ+4FWoMQkRMEpeDnOCPau34Ug7ybXYiAXWQoQ83BWoRN/QsrMq9j47muZpkw 5ecxZvD52h6vPsTIdx4VEeCTFSaqXWAn5mQOM3RrSR wVnblEVpOGeagnOmCdw+mWKs4+QwcPKA5YoRkqYk9D/xhW8yKwiG3jTT2cTsd3lDMHhGOsIocScYJbqp AKW9SnJD4DhNZV6kCJL0jOqMLw5puX/ZZvGXuiHPY9s8e/XewQtgTz8CF1kswKet3ZnobUpufaHBj2OM pWIkuYfXsj6b1T9ndneKtL2UsKi5yLl+qhSttE5rLB lg0yy9TVZD6BbVE4EKI2uifk8pklXI2nae5nAPpdgL+5APaX5DyknyhoUpT/lFFEOxc9u0tvx34zteEc UTWR2pdw3ISMxO3d9sJf+sOqknPoJ1+s8MHJPqIxLmLgdSy3eRANrjeARvfzLxLkE6Xf8I91y8Pp4SHi kD5ICOCsijsGg8vaax5I6b3RwuFN09wBO8vcHystZx 05CCYzhocJVsBTcA9tq2Ykfz5Enu3XdXs1PnepHzBF3LObEJR3lRqeRVR01MmlauFcEiC+KxNNG6/0Sc aJj0qgsNV20Sb/GCHAIot61Uu+W2NyObK9hhbu3cD0pB2wURUloRyyKnDT+V9eN0uuDP6hySiACrSj3S yKmJmfw4T4tlQhRlrCtBAOpQS/ODnmBC3aBXh+LFY6 c1woyeA3/sVslW1jc14KmQS2nXZQhPF5/tlfa0vLGqMk592SliXotFz8YUFDzUUatarIKJ/NIKj+USwR NRb0QEqS4bUQ6MEH4T9Hgzl5SrWsSyIZ1U1OpY5fADp+ShKRVVlhx8LErx3mKeaBeQQ5yUL1qKbKZ7WP cD/2RKVlxYfJQPyoM8EBvjivbxvLyn4ZqRaiY5KKNP cmtvN4rHe+wXYBeLHsP852JXgTWvMSLbHIZPh7x2UU/DXLir6bB6GjQ3JzeqaQhJjlMXELYUOrqb8qwG gBoF94YyOT4yWTAkJNsIt9deqLzi3hZZvmqw+xtKb0HKyeg4IUu0ZFbcjysPjPhNNNfKhYRPoOLfPCjy V77aoEIQDw8YQSvr3+JEFWusMlkZF+cS/iIAyVqNPS HuiCqoXZiLsi52ndHT2dLa31ocp9tmwrKb4YltnzUaP8aqitIR+sFC/ERZeY/rN47LZxtKD1uQsWCHbB ciF4/wQjqEksYWINexCRC9ZLDKygkp1ElLATwkT/dpBx1L8VfsDAmlMs+9ZK6YNilN3AHiiWGDlMWq2d i01Bpkh5wW5vbZvZw8uFXLaFGZmDz6ZGRLgS+lBDhs KMs/lcC3AjtCzA0a8U7srq5qG/XErzU06RFYbuftB+D4r8HOJ8wt4Rm4Ql5DR+KjcfJ9oVShuXs3xaG/ WtztxQOwG81UO6jaehVQ/ZDvBKr0DZY1b63Y3dnUDV82eoRNn/QBQyS63Svd1hseG+p9qB/LT4k+d7pq Jh7/oVbYMVeCtqmPWCh33zmMhRhwYxg8VsoZEq/Ben vl8U+BlZutRYEryjSH8Pn4fphXd3pU31Cimv9japL6CBwDHwnz9szRI5/7ZtOgfWPblH1vUKIie5477h /kl7RmO8d00zwgRc7Fj+Mku849A9PV4qU6wM5u5vNT3s2NR4pT1CNUJC/XnxINQX24mO8P5zXVcF+Kfs 3JPYyYqEA5chEGthi8hHkIR8wayje9ufdQPdvRWUWn 3RMLKPqbsq5nFZggF5Dr4lqHNFw9WIIaYTQxjJcoKlL7iiM+mjjA0PRPSkdAktlCvjkyNEy9xqVCkrcB j5eJhE3VePcO9mto9n8sBB+uVYQjv7orsyUlaORxN6hJGHYNjEpDdkbxjjj9heJ7OG652YFRE7xdbolL AsAmkE1mR2MsvJb6svtwZty5V15bntq4joAHeALrjI UtzXvbQE5VDPOX7IgDbjMHUTPNwhSrrWVUsKkiqwlJv5L0CfKz2TtJAmFA+1Os4P06eWzhFTiXGuCMF2 CquwJvWgAarqMTjRHmdRfqDlWynisWO25CV5SVU3nADjR29Ehr30j1DTPTFe9RLo6Kv0NGeNQiwWSQCn NEjJEGY7qkmaZYF1lBR+QzLXHv7YmwgTfFXtYYQ3gp tovVm7lxERKsE3KK90DXDayeLBAPQ62L1H7Y6lCA+L5TgaeJ+ICjA7YjP1O/nB2O1NG5Sb2sjW79RDoV GhjaPUo88LOxYB+d05Q0W05IrAShvI9toxzi2DASfkA7WWIbQ44oCe+3ixHuPcF3vlAwRGCyQY2UNDbp Co/m2uQmepRPMtmvXCf8Zf2VxmSpkVbueFxH8sgkCA FpT9TN/1CGWcXgPF0GHroOCp+lBpH+iYXHcomF/uyFsaZ/QbYhSTcoK1w7nkqe9qj5Kb9RT1/lCuC/Ef jOorzHYh++HrZ76UyCbR77AXvqj2SBXJe2KHQ35G1lrWikkLZ188HGqg68OKf8XgoIOEPDpzuml/2ff/ +Tp1etP3H+/X//+V//+Z//+59//79//uPf/yt2O0nY f/77X+eKy0n//3+dGy6d/uVnJNCf/njzf+rjSw/kj5O/TlqQLyg/lI8Umk1HJ02EXrWJgM5z17e0R/7O dCA/LT1bsnfo6dCVN19pQvriJS0s+nvTkDORj/4K+qmVepS41F+pq4GfWjq0wXze//h5D6gAWbQ57W5i I9O//MSK/umFvyPhTP/r8buh7sq/D4iW7b8/+jtXlh ft9ET+OT880qJev455iTopPakgwESMR/twZLR3qv+ZduT/+za6zpgeJPctNgi5W8sc/tnL0tsfkE7/Cz 506RqqZh1pw3ZXot9xrF3jj3q6m09AO16g2/j8G3mo1bnRfC03use+34X5rN+DsH68OL/Sv/dICyrc9C TT2umJ/KLx8DrjV5+10r/0cJYMnJ6eitHbH7sq4e7/ q+2vw8J3wZs4vQhv/yjshtk2rkl8/c0y9iF/tAnnvLsSo7AlD/bO3SjcU/Z1RxbenNse4uZdyuoWYcjz 0eNvG8/dLd/RX0d//kN0WxbPGuihcQzFb+A2UvSpg8h6U23fMdZ/+rtGRST/a20W09gddvC//mp+mz/V TUxujO5/jlPlSf/rq6919H7e+W3+1Dbx/MZ/WpvEyD b/+ac61e27j0jlGH+V7U/Omds/je0+96ew/PpWJh84xmmdd9RG+pzefwj6uo5J//IWU39vO99u9/rPL8 PJMDam7Lxkrr/r71cyf/73xkrSK501+fmoz2ps8+/I7/7myy8fH239tn2VtcrJ+58I6Zee2c/f+8Z83q O/o355uVJw3N2o2gxUlB0p77W+02pEgQyyCT234hL9 lPf+b+0GNw2bbHx28ptRY6dCSl86Lk/JIBVi3488nK8kf9djA7K/3n/8sN3g81pm3nAK0p19sssjo0/l zEmXzUtr7T07yX9rlZ/jCHPXmhy6LyFNE+hXkvrVrjTyF/IX8lu/EuhXUvpVyj//3y/T5/970ygfkBPI 19uubblsV5D+0a/ml+nx/qfnAsjLl/d/PNc/Xnp2e4 5+qoEg1hOvdmtn5H/3TN+Uj4TadThiI90a9jN59vE4qbnH/IzHs83F+QP56G/lPkyf9jzMK6JzgAW+pC QJPP1tnxhzxExpnOQ5aLkhmW+0JyAf/R96XfBZ+rvQ34X+sy350EL4pIH+Pj1KUr+eN1a27uKN/arKKP KED10HI+93Znn/iA739huR2bcSzj+Tx97h4EQ5+Ue/ uvnjQ/rppecOR+eE9ymHy32uHiQS/VX0V/ZTimaf1N8lz7p0rsMiLUVLug0+X4r3e/GtOnY7nzY+pJEv GALINA+Qg+/X8L8c9eFc6BiCL+HKxhWdCkfCRMP32R4oRzjAI/8+fMuznw94bd+XD2mUx/eb+vKm4P5nFF/1 yhXtwXrleL+O/odHssU2T/1z0zZGk0jm+O75E3i/gf 4G+zzpuxz2ScoEEN3nF+838H4D/L7V55F3S+tz4P0G+atAx2ZHa/3I6z2t0LZ+76/l7K/Lb/yPNubzxn fftnE8pqhf3+sPJ182hU7s49tsltf/o43+vspFQrusdwI40/vd/J06cvp9/btcEtLm02vvfGl7r4/1ip eeKD+Rv1B+4bmK5/w4Dbofud3adiV18p8bYfNSzxmC tcc/dyp+By6Q4r8h/dlYJf29a6Jav1DZ+soc/eaofT5cj+Z6dXbg6Mivk/pgAl656xfPo7gVUvbGdu76 yNOE1dq9LSk/5EwmrUg73Gk3L821pRwu336fK1/KfPk6P/WrmfkD+QP5vT+lfC6UrzB/Vj7queR/v99Z +lXK7/f6bdAOJx4xrLOpKni2/bdwGga5Pt2gL331ya MVbmXR2ySIYOfTKnQ4hB8SMA5eN/oPujBL6usoa40LsSejnu+UdXN/tOC1fyKxt6hBRjA8Qmt1i61ek4 j5Apt0Nl5+94RFiCfAj0tiY14acOc/kL+Qr5CD/h0zU447E4Aru45L/Z3MPj2mxOb/qwMDq1720ab9e0 fb/wzF6ty6v/tat223Pf3aiocfhCVpyVf/+qv57R/9 yr6s++esIp1xr59AmM/966/nidH2U8+6v/6mveJceDg/tF/87Vck9o/65SD488/ue6K08hRTppg974UB 3MfF2xI//K74cbql0KxMa4Fxb9zDScyjI28++tXLn7/1qHRLq3UMma17uI7gY/5yd1pTeaIJP+ilk/71 I39D36iHF3GAIM/7Z5B029zyc2pn1zG7/ncavl/v84 Xpvf+f5ap83BqDzv/K+By6f7npBT1hm+6z2fdIO2L3ee1/c01GU30lo8HrWT/1ygP5G/E99yl9Pz/yMZ +ZluA0j3N/qtGfF8I+Ta2dn56Ilw7GFvb3KJU1yM/R+/1whpGYEkeD4U+Ub/4qsuV91XkUzgw+OaFfzS 3Ih74B/JbTm0p2vqjDHhn9F0+e0K/fif4hYy+a2yEn mW1ly8raeN89ztfj78pzY+sbyG/2jG8jG4/Jaiq1uG+Rv5C/kN/413L0NkUxoozWm4V1pKW3h4zT7n+u w5B51gzS8OGKRiGzou3A2Of7+13UdD9Gjw6eZ/Wryl/I7/3gGq0/g2FGxhso+9DN91I0PxNJ3VfN3/2m rhWX9pRDs+cl6K/g/Qrer+J0Af8vuG+tzF9P/1ypX1 W+Ix30zT8N21xX+i3uxrg2QtY6EQOn/coq3c+Rachel+uAa06z1z94Q5iY2GydQ+9obUuEenlv6bYG5OEzn zm8+n6odyDb3QiI4maCh+071vX05t1e7mr38Eulbt1CYH4u7K+zDVcq99T2cufhnp4s7GgsESvh8uaAB /+cn493f9TcVh/y1E+9K74z85J0/Pfpfh+Ff1N+1Xl o7+K+zemu98Ix5gh9V/yZ3meDvC+mWUhSeXdorG9hzUSbhJN+KxBGO5A/MB267Gnj58hZf3eym+G+Zz2 p9nd9Gl23jF513Uge1d0iumRSz7ghP4bMsarCD/OegIloF6Qy3Oc8/Pu5Xi/fzfqDA7g11ktRwzUR8w4 idRe9Wjrdt1w6qQoGu04sGj86nRaUiga3M3Z1cgC/w c8q8TfdEM5z3E5Q7p/jlA41HqB3i9Li/4ZBzimno0jcI3CnC/6G5l/+fayXF0b65M6S+pXlZ/2jZNO+9 VNt/zUr7zS+tqQ+nJPLzqfy907nlzlWg6uBulW2d56Q7YilH9m9vp/acjZvkLef28K/arS+B/ttm+s3f 4ba/f/SFO/kft8vbvJ0b8A/cvK9r8jjq8z8L/XK/16 fdZvIb/MT5H4Dz+8z0snAz7jQq/231CcD+rX+oZ+ubKB4eqnq8+g8L/W0g9jM858pk7xSe/89kfSISif +9INI79pv7YFx6lqdr+WTEO+obxDjkN+ID+Qv5GP/sl2S14uIDf7jXpHxAQ91FfOG1ivr9B+obyivKK8 oTzerzja0/7psznho89G8J6N+jxU4X+ls+2Txy2//C uOV/41tExch7m8Kljwkq+7QAq1t0++iyZFS3cE87QqarlII03z82t8K655uaAtB7X+y48vn/vxi7qwq+ Ro1px1sRV5t/8kjd4Eu20+Naqdv/5+J8oZpy2Qpsa/F5cA6H9+jsNPvyr/iuOAf+se/eo7/irH/f4cwv /Sx3/j+H4c5/tfmOST/oP7vIcvlskBsu52Bct/ym9n 4f2u3v/l0k7DGpv+oHyf7+tq+4bC/1u7t0f03tmXm13pR+37h7iuz9P2/3e9AGrNcdVzcLxXhiSA097Q Vk83HTrNAmHxg8bwVbKZH4Z3X0eI2qrv2H+redqcLXu6Rm9na3I2zzm3wI+Y7tiQbpVbMvoL/N4fqbU+ qRaQHyjf+bJQq6QCs7ai+7+T+lWVwf/XVrQ9q2S+UX 5Cfu+R9SjsDKDe7d2/j97/X/U+X1Dv/081IO0hk1I0/r+pX+X6k/rV+eds3mju6N7t4gm1oL28Jr+i/I Z5lfRNnZP+Id+tglWoM8U+z4dbV5xW5q+Ku3h85pyPkj8+bk631nwbC0Itza5FEb8T/wckIKx0Yn3z8a K/G/1N/eqmkY/+pn6Va/qewJIQnxg1zPL+vnQc1nzg y5kbMtkBuCb50ICIY47cjLS/GtJrOli156/+444L/Gjc4fI9jsxDrrUb6dv9yUBcJ6q1o/6kg9nr1S6c o0MePUuFKg4scj/ySr/xt9H+o7i2mluquL/4q1Naq6N0sjFf/y58KUE2/Vraryp/Q/5+110ae79Z+1Wl B/ZPitrzge8z4j7jmelx4rzmGnm0MuQJ5xPCG/tVpR 7oZP9UjvGv0Q24a/DAu5ltEtF81gkq8L+95klQvx6aclZ/E/2vtO1T6r4mJuTh8hkdXuW/12dL+9VZh2 2iv/Bvt4n+ez5l7qu3whS7v/wkvRN2qqzI53cfV1eXt9wq5k1RgyU3rfVL+Qr5eL/FVU07RI83t6FH+Y H8jfw+6qrj7zeL/X16WlzU/8Ma7C4T/dW+l1MeP6Y+ BcgV7arMU9lk/Qf3v295gV/F+9VA/ob8/v3y1kz9Z7r/O7l5qp6c0MSe8u5n0zO9Y0WavqAO0nuvMe2b 1lLD+mxYn49+ces8rlfaoT4kufSsdO9xu8sy3q+w0dIu1bnd9IAa2ez63eDpv/Eth89Df0Pq/mup9s0w 8d5m0o7xAB91upmMS3i19KeyE9+q/KipniuVpS7j+c B6FR/yB/LxfqFfGfQrS/9s22r4pn1d6AzF/ugGf5e7ao2h1RlLaYG/7ZMG/yuLQPlA+Y3ybW+96r5wxw vfzHA+hAsqxO2b5/cx196tyR3tuzS/9ii2t82f6B+bow1iiOK815xB2kD3ZObY707omb55eo6+V/51fx 3ng/61v5l/gvw+P/Bd36uG76W/Cdpm7ZA9mY+9/3XY r/hzuFJ1S/zr+vvgI13nwr1+lfdB/OhXmv06+qYj5niYhuQaO/pzW9dU7/vRr9K/wo9+lXdD/HbJ1Boz R7/iAVt56yl/+lDUtSS033+hKVPRHnvrqh/4fvZszy49HMx//hX+069+ENuZ/uVXX/Haa8jyah2YE0Xs /eo7tgU/+gMVmPi19qe9dPNaqJA37n1bROY+VXLSPy cncp4KTw0Tyk/o0v9fl/6twI8JGceLw8s0daEP95Jejzm1e4k5/6snMweh21+O80HH+eArxJMbHfm5E/ EJ29RWEij1/2GeCm4K39p+Qr/y0q/OOE+OfMvs7KoM/wij7wq3ys0d5M129z/JfQ263QsbitQY1yD2r2 l6YsZQ9lma1XREycjJ/s6OgfusP/m9X/THt8cDbz+t b7h+yO//kad+3WgTuR0c8/sjT/1dBz95BuECHkNu/Gt61gjv5/dDPfWrynfID+DA9Ftt8/9Sbd6QAILc jKGjQ1QruRgiG/019NfQX+eJJkgRKFdTasNWlI4DBi1NCy3UTE11PqQQYzF2qlh+yh4mgai3973ilkc/ 9vyc9z0deiJm/YV+5Y7+vg6O25kkD4B16Hb+6d76pL sjv/VJ90D+fvqeH/0q7dV+9KvUG/8uCmi1sN/1yVNa9gNlcXePg223RHVJb3bwG+WPfWNVGvKP/lxtUJ M6ZStOr/qb/3foF2Jhyh267mc9gvKcy+5x2F/fw29YI1wyoermx8i6fsV29p/G+039qsrj/tU48Od5jZ JEFFRY+S3/deqC899n/PUryo/el5tfL+kAzDtR6Q9rJg3 16tI/epl8AKu+RNyJuQvlF/I7/PQ+OErYUE8o/B31o1nXngXQThn53741L0vN/1N+9VNt/yB/g70t+xX hAb3Pi2R/u0B//ZI+7Qiy76T/AY5XxbsldGjTlW/N8ZG+M6sWal8ZkZ/NiA04y3I/6NI+9VNI7/3vwH7 VchC/rN6lIwGryLcYJsnq8H+/79R/riWep32UM8Evt n6RsB+FYjPEKlfpczZ+/2Y6C/eQiBwBkorT8LTABxE+MtuMykLzUssFOQM0lvzdlYn8MVrhw0yY/N59X oXr1rtFAgVhx+xer8fq/p4aoDmCPnp0Fke/k4WwOj0wxYb0bS4iA2TthTmLyXtj695w3qcN663/db5OP pV/vDx2Gl6I6yuC4052i/I8b4vseRqmm/pQ2s5t1Ok ckx0Ir/1J6M0hZ8IwnSVjLBui1q1U1yWv8gQER5zh4Co8EqSA1nNwmucdK0J8S/M9l7W6os3iZ0/Cut4 F6OhtnHW/oQB/6tI/rfgk48X1I6E6/1RWPtPhgXyA+F00Ev8RLx1WwQ6v5EX5wvFB/C4JLR248fN9hWW O8WwvRpH1/OIsHDTMhnzfbboR0WohV2HpbH4jl5A0q FkIgby+bg9rfeShwbzQce1nLPyWxA1ncaet/vOtCIf/YX/Jesus+fTtV5ks3okK+4Fk014+VKIODx9Fnq0 5+ZVX+11/L8ke/8q/ZaiWMkAIpXAiu7j/+tKmT/vU38ls++uPgk2gh/ctH78s6Zh+LCImG1lTC9C+yPe awusmU4u/SzhBHv/iw213pcnptS81+wf053vbJqw7o cp83Uy7+/u87MME7v6O9dM2+rwgRvzOCegx3e25Rlf/2R9pf++furniture sander+/Doomq1g/PF/bX+/16yW2dk099 w/5kq17v26/g7xt20mmrD/vr84Vd/g5XcvzTal/7Hu3/vEef7+/R3+8eA/l7Ji2mX0kuXz/Bzu81ehyr UI9eI5VleX/I7/IMlfxEu3B/I5C/kd/nKVv6+93S3+ +WgfyB/IYgoOm4ctjF/NTxdTrPH4zy/w5TmEm8B8sF+sYWhxxH+c8reQdEuqgWA2b+seF/tWfv9/fs/c YGxzOuU15oUdn32TH+tWfvF/Zs/ZaQFb0vy/dHG/Jb4bm9pa90/92pX51/9J6B/I38Pu/eqV9l/vqQ3/ aNvXp/tFfvF/bq/eBerW/szS7Pyv7Q9fcJU+Qr8g3P RX8X+rsc+BE75Q5Roje3d+bd9puz0y/kD+20IF+Qj/7Jz3aUb5vyif2K80Jx0xu0mT/6PxLDpl7PnvLt O/Zk0E431Do4qRO/O9++91/smknhm0OEc4p8+zxE0Yp1b026GBTX+RPlJ+OsxdLJqGk9k+0b29q+sQ39 zfPBykd/83xQMr/7023q43kA8m0Z52Aaml/YsF/tPB +sCt6i3J44m/rVTSN/Ib/rO1nG4rBzAmfZbOu+7/e3t/68U7/Kue0b+Y8h4FZ5aL30A4aemG/4jj4OqR Z9tnyprZB/mJ6MGbOjcWf2L//2Hb3f3+Eoj/5G+oPw9WXDGw/2vds+ucu/UbHM240+wr99b/X6H4ITvz C86d94s6Uf9Q19bvZ0wx9o7x8fRE7010P8TrSjw4l5 [file] UoxCPl8Lq5MytzY0vkIlKpz7XBB8CuLuAG3X ID Date Data Source [id number] 02/06/2020 07:00:20 PM EDT [facility] [address] [place] [address] [id number]# Surgical Pathology ReportAccession #:[id number]) ReceivedA: Contents of femoral artery rightClinical Diagnosis and HistoryClaudication DIAGNOSISCONTENTS OF FEMORAL ARTERY, RIGHT: ATHEROSCLEROTIC PLAQUE (GROSS DIAGNOSIS). Gross DescriptionReceived in formalin, the specimen is labeled "contents of femoral arteryright" consists of fragmented white-johnson calcified atherosclerotic plaquemeasuring approximately 3-4 cm in aggregate. No sections submitted. Grossonly. jglgmm/gmm Reported: 02/06/2020Electronically Signed Out By Serjio Sandhu M.D. [facility] [place] [address] [id number] component performed at [facility], Histopathology, [address] [place] [address], [phone].Reported at [facility], [address] [place] [address], [id number]. This report may includeimmunohistochemical or in-situ hybridization results. Testing wasdeveloped and the performance characteristics determined by [facility] as required by CLIA '88. The FDA hasdetermined that approval for specific use is not necessary for clinicaluse. The quality of Hematoxylin and Eosin stains and as applicable, forall immunohistochemical and/or special stains, including positive andnegative controls, were reviewed and considered appropriate.ICD codes I70.90CPT codesA: 98086L Name Value Range Interpretation Code Description Data Tisha rce(s) Supporting Document(s) ID Date Data Source [id number] 02/05/2020 08:43:15 AM EDT [facility] Name Value Range Interpretation Code Description Data Tisha rce(s) Supporting Document(s) POC NOVA GLU 284 mg/dL (70-99) H [facility] PERFORMED BY [facility] CLINICAL STAFF ID Date Data Source [id number] 02/11/2020 12:20:01 PM EDT [facility] SPECIMEN DESCRIPTION PERIPHERAL 2SPECIAL REQUESTS NONECULTURE RESULTS NO GROWTH 6 DAYSREPORT STATUS FINAL 02/11/2020 Name Value Range Interpretation Code Description Data Tisha rce(s) Supporting Document(s) ID Date Data Source [id number] 02/11/2020 12:20:01 PM EDT [facility] SPECIMEN DESCRIPTION PERIPHERAL 1SPECIAL REQUESTS NONECULTURE RESULTS NO GROWTH 6 DAYSREPORT STATUS FINAL 02/11/2020 Name Value Range Interpretation Code Description Data Tisha rce(s) Supporting Document(s) ID Date Data Source [id number] 02/05/2020 08:59:02 AM EDT [facility] SPEC EXP DATE 02/08/2020PATI ENT ABO/Rh B NEGATIVEANTIBODY SCREEN NEGATIVETESTING SITE PERFORMED AT [address] [place] [address] [id number] BANK COMMENT BLOOD TYPE CONFIRMED. Name Value Range Interpretation Code Description Data Tisha rce(s) Supporting Document(s) TYPE AND SCREEN [facility] ID Date Data Source [id number] 02/05/2020 08:42:49 AM EDT [facility] Name Value Range Interpretation Code Description Data Tisha rce(s) Supporting Document(s) PT 10.3 s (9.2-11.9) [facility] INR 0.98 [facility] SUGGESTED THERAPEUTIC RANGES USING INR F ORSTABILIZED ANTICOAGULATED PATIENTS:STANDARD DOSE THERAPY INR 2.0-3.0 DVT, PE, PREVENT DVT OR EMBOLISMHIGH DOSE THERAPY INR 2.5-3.5 PREVENT EMBOLISM FROM MECHANICAL HEART VALVE ID Date Data Source [id number] 02/05/2020 08:42:49 AM EDT [facility] Name Value Range Interpretation Code Description Data Tisha rce(s) Supporting Document(s) APTT 33.5 s (22.0-34.3) [facility] ID Date Data Source [id number] 02/05/2020 08:03:38 AM EDT [facility] Name Value Range Interpretation Code Description Data Tisha rce(s) Supporting Document(s) SODIUM 137 mmol/L (136-145) [facility] POTASSIUM 4.0 mmol/L (3.6-5.2) [facility] CHLORIDE 103 mmol/L (100-108) [facility] CO2 25 mmol/L (22-31) [facility] ANION GAP 9 mmol/L (7-16) [facility] UREA NITROGEN 29 mg/dL (7-24) H [facility] CREATININE 1.27 mg/dL (0.60-1.00) [facility] BUN/CREAT RATIO 22.8 RATIO (10.0-20.0) [facility] GLUCOSE 274 mg/dL (70-99) H [facility] CALCIUM 9.1 mg/dL (8.4-10.2) [facility] TOTAL PROTEIN 7.2 g/dL (6.4-8.2) [facility] ALBUMIN 3.3 g/dL (3.5-4.6) L [facility] GLOBULIN 3.9 g/dL (2.7-4.3) [facility] ALB/GLOB RATIO 0.8 RATIO [facility] ALKALINE PHOSPHATASE 162 U/L (45-117) H [facility] BILIRUBIN,TOTAL 0.3 mg/dL (0.0-1.0) [facility] PLEASE NOTE:Total bilirubin results may be falselyelevated in patients taking Eltrombopag. AST (SGOT) 13 U/L (11-39) [facility] ALT (SGPT) 15 U/L (12-78) [facility] GFR 44 ml/min/1.73m2 (>59) L [facility] GFR ( AMER) 53 ml/min/1.73m2 (>59) L [facility] GFR INTERPRETATION [facility] --NORMAL KIDNEY FUNCTION OR MILD DISEASE - GFR >OR= 60CHRONIC KIDNEY DISEASE - GFR 15 - 59RENAL FAILURE - GFR <15 Est. GFR calculation based on the MDRDstudy equation, which assumes a steadystate for creatinine. Est. GFR should notbe used for medication dosing. ID Date Data Source [id number] 02/05/2020 07:41:23 AM EDT [facility] Name Value Range Interpretation Code Description Data Tisha rce(s) Supporting Document(s) WBC 13.2 10*3/uL (4.1-11.0) H [facility] RBC 5.42 10*6/uL (4.00-5.40) H [facility] HGB 14.5 g/dL (12.0-16.0) [facility] HCT 43.7 % (36.0-47.0) [facility] MCV 80.6 fL (80.0-95.0) [facility] MCH 26.8 pg (27.0-32.0) L [facility] MCHC 33.3 g/dL (32.0-36.0) [facility] RDW 16.1 % (10.5-14.5) H [facility] PLT 306 10*3/uL (150-450) [facility] MPV 8.5 fL (7.1-10.7) [facility] ID Date Data Source [id number] 01/30/2020 01:22:46 PM EDT [facility] INFORMATIONPatient MRN Name Date of Age Gend*PT [id number] Charles Tatianna 1965 54 years F ---PT Location Admission Date/Time Visit ID Attending Provider --- --- --- --- EPI ID CSN Admitting Provider [id number] ---[facility] [address] [place] [address]. [place]it. [address], [place] [address]C: F: OFFICE CONSULTATIONDate: 01/30/20Patient: Tatianna MccarthyB: [id number] Physician: No ref. provider foundConsulting Physician: EMILI Spann was asked to see this patient in consultation for evaluation of theirprotruding sternal wire by .CHIEF COMPLAINT: Chest discomfort due to protruding sternal wireThe patient is 54-year-old white female who was operated upon on 01/01/2016 wedid urgent coronary bypass due to the fact that the patient had acute non-STelevation VT and was in respiratory failure the patient has a history ofdiabetes mellitus hypercholesterolemia severe chronic obstructive lung diseasethe patient underwent coronary artery bypass x5 by placing triple sequentialgraft to diagonal OM1 and OM 2 and a single saphenous vein graft to the verydistal RCA and KULKARNI to LAD patient had done well but on and off has been havingsome pain looks like needle hitting his chest wall coughing or moving aroundotherwise in the steady state the patient has no problemHISTORY OF PRESENT ILLNESS:Symptoms: chest painSeverity: mildRadiating pain: noOnset: Few monthsRelieving factors: restAggravating factors: exertion the pain is more like a needle hitting the chestwall and by pressing on the sternal wires that pain is reproduced this is notanginaMEDICATIONS:Current Outpatient Medications: albuterol (PROVENTIL HFA;VENTOLIN HFA) 108 (90 Base) MCG/ACT inhaler, INHALETWO PUFFS BY MOUTH EVERY 4 HOURS NEEDED FOR WHEEZING, Disp: , Rfl: 0 ASPIRIN ADULT 325 MG tablet, Take 325 mg by mouth daily, Disp: , Rfl: 0 atorvastatin (LIPITOR) 80 MG tablet, Take 80 mg by mouth daily, Disp: , Rfl: B-D INS SYR ULTRAFINE 1CC/31G 31G X 5/16" 1 ML MISC, USE THREE TIMES A DAY,Disp: , Rfl: 11 B-D ULTRAFINE III SHORT PEN 31G X 8 MM MISC, USE ONE PEN NEEDLE EVERY DAY FORTOUEO PEN, Disp: , Rfl: 5 BREO ELLIPTA 200-25 MCG/INH AEPB, INHALE ONE PUFF BY MOUTH EVERY DAY, Disp: ,Rfl: 2 buPROPion (WELLBUTRIN XL) 150 MG 24 hr tablet, Take 150 mg by mouth daily,Disp: , Rfl: clopidogrel (PLAVIX) 75 MG tablet, Take 75 mg by mouth daily, Disp: , Rfl: cyclobenzaprine (FLEXERIL) 5 MG tablet, TAKE ONE TABLET BY MOUTH EVERY 12HOURS NEEDED FOR SPASMS, Disp: , Rfl: 2 docusate sodium (COLACE) 100 MG capsule, TAKE TWO CAPSULES BY MOUTH TWICE ADAY NEEDED, Disp: , Rfl: 1 DULoxetine (CYMBALTA) 60 MG capsule, Take 60 mg by mouth 2 (two) times a day, Disp: , Rfl: ferrous sulfate 325 (65 FE) MG EC tablet, Take 1 tablet by mouth daily withbreakfast , Disp: , Rfl: 0 HYDROcodone-acetaminophen (NORCO) 5-325 MG per tablet, Take 1 tablet by mouthevery 6 (six) hours as needed for pain, Disp: , Rfl: lisinopril (PRINIVIL,ZESTRIL) 5 MG tablet, Take 5 mg by mouth daily, Disp: ,Rfl: loratadine (CLARITIN) 10 MG tablet, Take 10 mg by mouth daily, Disp: , Rfl: metoclopramide (REGLAN) 5 MG tablet, Take 10 mg by mouth 2 (two) times a day, Disp: , Rfl: mupirocin (BACTROBAN) 2 % ointment, APPLY TO AFFECTED AREA S ON FOOT WOUNDONCE DAILY, Disp: , Rfl: nystatin (MYCOSTATIN) powder, APPLY THIN LAYER ON RASH UNDER BREAST TWO TIMESA DAY, Disp: , Rfl: 2 omeprazole (PRILOSEC) 40 MG capsule, Take 40 mg by mouth 2 (two) times a day, Disp: , Rfl: ondansetron (ZOFRAN) 4 MG tablet, as needed, Disp: , Rfl: ondansetron (ZOFRAN-ODT) 4 MG disintegrating tablet, Take 4 mg by mouth every8 (eight) hours as needed for nausea, Disp: , Rfl: pentoxifylline (TRENTAL) 400 MG CR tablet, Take 400 mg by mouth 3 (three)times a day with meals, Disp: , Rfl: 6 pregabalin (LYRICA) 150 MG capsule, 150 mg 2 (two) times a day , Disp: , Rfl:2 STEGLATRO 15 MG TABS, TAKE ONE TABLET BY MOUTH EVERY DAY BE SURE TO KEEPWELL HYDRATED, Disp: , Rfl: 2 TRESIBA FLEXTOUCH 200 UNIT/ML SOPN, INJECT 50 UNITS UNDER THE SKIN TWO TIMESA DAY, Disp: , Rfl: 2 TRULICITY 1.5 MG/0.5ML SOPN, once a week, Disp: , Rfl: insulin lispro (ADMELOG) 100 UNIT/ML injection, Inject under the skin asneeded for high blood sugar, Disp: , Rfl: ONE TOUCH ULTRA TEST test strip, USE TO TEST THREE TIMES A DAY, Disp: , Rfl:11ALLERGIES: Basaglar kwikpen [insulin glargine]; Grapefruit concentrate; andInvokana [canagliflozin]PAST MEDICAL HISTORY:Past Medical History:Diagnosis Date Chronic GERD controlled on PPI Claudication of both lower extremities claims she has never had official testing or deeper evaluation into this as of12/27/2015 COPD (chronic obstructive pulmonary disease) Coronary artery bypass graft 12/2015 Quintuple coronary bypass; KULKARNI to LAD, triple sequential graft to diagonal,OM1 and OM2 and single saphenous vein graft to distal RCA Diabetic neuropathy DM2 (diabetes mellitus, type 2) >= 20 yr Echocardiogram 2016 Ejection Fraction is 50 %. Apical anterior wall hypokinesis. Aoritc rootsclerosis/calcification with a round calcified nodule in the aortic wall ofunceratin etiology Echocardiogram 07/05/2019 Normal LV size with borderline LVH and overall mildly reduced left ventricularsystolic function. There is akinesis of apical segment, distal septal anddistal anterior wall. Overall estimated LVEF 45 to 50%. Grade 1 diastolicdysfunction. No significant valvular disease. Likely normal central venouspressure. Unable to estimate pulmonary artery pressure Heavy cigarette smoker (20-39 per day) since 18 yo HLD (hyperlipidemia) Hx of Diabetic coma 2016 unresponsive for while - ended up even having PEG/trach for while Non-STEMI (non-ST elevated myocardial infarction) 2016PAST SURGICAL HISTORY:Past Surgical History:Procedure Laterality Date ANGIOPLASTY 07/2019 Dr. Bang BLADDER SURGERY CARDIAC SURGERY N/A 01/01/2016 Procedure: MEDIAN STERNOTOMY CORONARY GRAFTS X5 KULKARNI [place]AK[place]OWN W RIGHT LEGENDOSCOPIC SAPHENOUS VEIN HARVEST; Surgeon: Saba Smith MD; Location: [facility]; Service: Cardiac/Open Heart; Laterality: N/A; FOOT SURGERY GASTROSTOMY W/ FEEDING TUBE 2014 LEG SURGERY PEG W/TRACHEOSTOMY PLACEMENT 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 > 1000 in early 2016 TRACHEOSTOMY 2015 TUBAL LIGATIONFAMILY HISTORY:Family StatusRelation Name Status Mother Father Sister Alive Brother Alive Sister Alive Sister AliveSOCIAL HISTORY:Social HistorySocioeconomic History Marital status: Single Spouse name: Not on file Number of children: 3 Years of education: Not on file Highest education level: Not on fileOccupational History Not on fileSocial Needs Financial resource strain: Not on file Food insecurity: Worry: Not on file Inability: Not on file Transportation needs: Medical: Not on file Non-medical: Not on fileTobacco Use Smoking status: Current Every Day Smoker Packs/day: 1.50 Years: 35.00 Pack years: 52.50 Types: Cigarettes Smokeless tobacco: Never Used Tobacco comment: Per pt working with PCP for plan in placeSubstance and Sexual Activity Alcohol use: No Drug use: No Sexual activity: Not on fileLifestyle Physical activity: Days per week: Not on file Minutes per session: Not on file Stress: Not on fileRelationships Social connections: Talks on phone: Not on file Gets together: Not on file Attends lutheran service: Not on file Active member of club or organization: Not on file Attends meetings of clubs or organizations: Not on file Relationship status: Not on file Intimate partner violence: Fear of current or ex partner: Not on file Emotionally abused: Not on file Physically abused: Not on file Forced sexual activity: Not on fileOther Topics Concern Bike Helmet Not Asked History of Falls Not Asked Self-Exams Not Asked Caffeine Concern Not Asked Hobby Hazards Not Asked Sleep Concern Not Asked Daily Calcium Supplement Not Asked Lead Exposure Not Asked Special Diet Not Asked Daily Vitamin D Supplement Not Asked Service Not Asked Stress Concern Not Asked Domestic Violence in home Not Asked Radon exposure Not Asked Weight Concern Not Asked Exercise Not Asked Seat Belt Not Asked Well water Not Asked Firearms in home Not AskedSocial History Narrative Has boyfriend. Has three children, all > 22 yo.REVIEW OF SYSTEMS:Constitutional: No chills no feverHENT: No ENT issuesEyes: No runny eyes no itchy eyes no vision problemRespiratory: No respiratory problem admits to COPDCardiovascular: Status post coronary artery bypass 2016Gastrointestinal: No upper or lower GI bleedingEndocrine: No diabetesGenitourinary: No hematuria dysuriaMuskoskelatal: No musculoskeletal diseaseSkin: No psoriasis eczemaAllergic/Immunologic: No allergic immunologic diseaseNeurological: No neurological disease no upper or lower extremity weakness orunilateral weakness TIAHematological: No anemia bleeding disordersPHYSICAL EXAMINATION:BP 102/66 (BP Location: Left upper arm, Patient Position: Sitting) | Pulse 100| Resp 16 | SpO2 97%Lungs: No rales no rhonchi no wheezing.Cardiac: S1-S2 no murmur.Abdomen: Bowel sounds normal limit no rigidity no tenderness no mass noorganomegaly.Extremities: No peripheral edema.Neck: Trachea midline no neck lymphadenopathy no scapular node involvementEyes: Congenital is not anemic sclera nonictericNeurologic: Upper lower extremity has equal strength no unilateral weakness ornumbnessExamination of Joints: No swelling no redness.Chest: Healed midline incision the wires when we press on it creates an needlingpain same pain that patient is complaining of no suggestion of any infection.Skin: Skin with normal limit no rashes no lesions.DIAGNOSTIC DATA: Chest x-rayIMPRESSION: Protruding wiresPLAN: Plan to extract those wiresI spoke with the patient about all choices treatment) including no treatment ormedical therapy) removal of the sternal wires 3 small incisions and the possiblecomplication including bleeding infection continuation of the pain the patientstarted with allergies and even the patient indicated understood andagreed to surgery.Saba Smith MD Name Value Range Interpretation Code Description Data Tisha rce(s) Supporting Document(s) ID Date Data Source [id number] 01/05/2020 12:14:00 PM EDT [facility] Name Value Range Interpretation Code Description Data Tisha rce(s) Supporting Document(s) Gram Stain Laboratory test result Normal (applies to non-n umeric results) [facility] NO CELLS SEEN NO ORGANISMS SEEN Wound Culture Laboratory test result Normal (applies t o non-numeric results) [facility]) <content>FULL REPORT IN LAB NOTES ([facility]).</content>
<content></content>
<content>ORGANISM 1: PSEUDOMONAS AERUGINOSA</content>
<content></content>
<content>QUANTITY OF GROWTH FEW</content>
<content></content>
<content></content>
<content>ORGAN ISM 1: PSEUDOMONAS AERUGINOSA</content>
<content></content>
<content> PSEUDOMONAS AERUGINOSA: REACTION</content>
<content>GENTAMICIN IV 80mg q8h 2 S</content>
<content>LEVOFLOXACIN IV 500mg qd 4 I</content>
<content>LEVOFLOXACIN PO 250mg qd 4 I</content>
<content>LEVOFLOXACIN PO 500mg qd 4 I</content>
<content>TOBRAMYCIN IV 80mg q8h <=1 S</content>
<content>CEFTAZIDIME IV 1gm q8h 4 S</content>
<content>PIPERACILLIN/TAZOBACTAM IV 2.25 gm q6h 16 S</content>
<content>MEROPENEM IV 1 gm q8h 2 S</content>
<content>MEROPENEM IV 500 mg q8h 2 S</content>
<content>CEFEPIME IV 1 gm q12h 8 S</content>
<content>CEFEPIME IV 2 gm q12h 8 S</content>
<content></content> ID Date Data Source [id number] 12/30/2019 11:11:00 AM EDT [facility] ([facility]) Name Value Range Interpretation Code Description Data Tisha rce(s) Supporting Document(s) C reactive protein [Mass/volume] in Serum or Plasma by High sensitivity method 6.87 mg/dL 0.00-0.30 Above high normal [facility] ([facility]) <content>note:<nlbl:demographic_changed> </content>
<content></content> ID Date Data Source [id number] 12/30/2019 11:11:00 AM EDT [facility] ([facility]) Name Value Range Interpretation Code Description Data Tsiha rce(s) Supporting Document(s) Glucose, Fasting 779 mg/dL 70-100 Above upper panic limits [facility] ([facility]) Blood Urea Nitrogen 28 mg/dL 7-18 Above high normal [facility] ([facility]) Creatinine For GFR 1.16 mg/dL 0.55-1.30 Normal (applies to non -numeric results) [facility] ([facility]) Glomerular Filtration Rate 52.2 Normal (applies to n on-numeric results) [facility] ([facility]) <content>Units are mL/min/1.73 m2</content>
<content></content>
<content>Chronic Kidney Disease Staging per NKF:</content>
<content></content>
<content>Stage I & II GFR >=60 Normal to Mildly Decreased</content>
<content>Stage III GFR 30- 59 Moderately Decreased</content>
<content>Stage IV GFR 15-29 Severely Decreased</content>
<content>Stage V GFR <15 Very Little GFR Left</content>
<content>ESRD GFR <15 on ELEMENT BURNER</content>
<content></content> Sodium Level 126 meq/L 136-145 [facility] ([facility]) Chloride Level 95 meq/L 98-107 Below low normal [facility] ([facility]) Carbon Dioxide Level 25 meq/L 21-32 Normal (applies to non-num denita results) [facility] ([facility]) Potassium Serum 6.5 meq/L 3.5-5.1 Above upper panic limits [facility] ([facility]) This specimen has an elevated potassium level but there is NO visible hemolysis noted. Anion Gap 6 meq/L 8-16 Below low normal [facility] ( [facility]) Ast/Sgot 16 U/L 7-37 Normal (applies to non-numeric resul ts) [facility] ([facility]) Calcium Level 9.5 mg/dL 8.5-10.1 Normal (applies to non-numeric re sults) [facility] ([facility]) Bilirubin,Total 0.2 mg/dL 0.2-1.0 Normal (applies to non-numeric results) [facility] ([facility]) Alt/SGPT 16 U/L 12-78 Normal (applies to non-numeric resul ts) [facility] ([facility]) Alkaline Phosphatase 188 U/L 45-117 Above high normal [facility] ([facility]) Total Protein 7.5 GM/DL 6.4-8.2 Normal (applies to non-numeric re sults) [facility] ([facility]) Albumin/Globulin Ratio 0.6 1.2-2.2 Below low normal [facility] ([facility]) Albumin 2.9 GM/DL 3.2-5.2 Below low normal [facility] ( [facility]) ID Date Data Source [id number] 12/30/2019 11:11:00 AM EDT [facility] ([facility]) Name Value Range Interpretation Code Description Data Tisha rce(s) Supporting Document(s) Erythrocyte sedimentation rate by Westergren method 32 mm/hr 0-30 Above high normal [facility] ([facility]) Lactate [Mass/volume] in Serum or Plasma 2.4 mmol/L 0.4-2.0 Above upper panic limits [facility] ([facility]) <content>note:<nlbl:demographic_changed> </content>
<content>Y/N query for Sepsis Lactate Rule: Y</content>
<content></content> ID Date Data Source [id number] 12/30/2019 11:11:00 AM EDT [facility] ([facility]) Name Value Range Interpretation Code Description Data Tisha rce(s) Supporting Document(s) White Blood Count 12.6 10 4.0-10.0 Above high normal [facility] ([facility]) Hematocrit 45.4 % 36.0-47.0 Normal (applies to non-numeric resul ts) [facility] ([facility]) Red Blood Count 5.21 10 4.00-5.40 Normal (applies to non-numeric results) [facility] ([facility]) Hemoglobin 13.9 g/dL 12.0-15.5 Normal (applies to non-numeric resul ts) [facility] ([facility]) Mean Corpuscular HGB Conc 30.6 g/dL 32.0-36.5 Below low normal [facility] ([facility]) Mean Corpuscular Hemoglobin 26.7 pg 27.0-33.0 Below low normal [facility] ([facility]) Mean Corpuscular Volume 87.1 fl 80.0-96.0 Normal ( applies to non-numeric results) [facility] ([facility]) Red Cell Distribution Width 14.4 % 11.5-14.5 Norm al (applies to non-numeric results) [facility] ([facility]) Neutrophils % 85.1 % 36.0-66.0 Above high normal [facility] ([facility]) Platelet Count, Automated 375 10 150-450 Normal (applies to non-numeric results) [facility] ([facility]) Rock % 3.5 % 0.0-5.0 Normal (applies to non-numeric resul ts) [facility] ([facility]) Eos % 0.3 % 0.0-3.0 Normal (applies to non-numeric resul ts) [facility] ([facility]) Lymph % 10.2 % 24.0-44.0 Below low normal [facility] ( [facility]) Baso % 0.6 % 0.0-1.0 Normal (applies to non-numeric resul ts) [facility] ([facility]) Nucleated Red Blood Cell % 0.0 % 0-0 Normal (applies to n on-numeric results) [facility] ([facility]) Immature Granulocyte % 0.3 % 0-3.0 Normal (applies to non-n umeric results) [facility] ([facility]) Neutrophils # 10.7 10 1.5-8.5 Above high normal [facility] ([facility]) Eos # 0.0 10 0.0-0.5 Normal (applies to non-numeric resul ts) [facility] ([facility]) Lymph # 1.3 10 1.5-5.0 Below low normal [facility] ( [facility]) Rock # 0.4 10 0.0-0.8 Normal (applies to non-numeric resul ts) [facility] ([facility]) Baso # 0.1 10 0.0-0.2 Normal (applies to non-numeric resul ts) [facility] ([facility]) ID Date Data Source [id number] 12/30/2019 11:11:00 AM EDT [facility] Name Value Range Interpretation Code Description Data Tisha rce(s) Supporting Document(s) Venous Partial Pressure Co2 50.0 mmHg 38.0-50.0 Norm al (applies to non-numeric results) [facility] ([facility]) Venous PH 7.328 units 7.330-7.430 Below low normal [facility] Venous Total Co2 27.2 meq/L 24.0-28.0 Normal (applies to non-numeric results) [facility] ([facility]) Venous Partial Pressure O2 55.8 mmHg 30.0-50.0 Above high normal [facility] ([facility]) Venous Hco3 25.7 meq/L 23.0-27.0 Normal (applies to non-numeric resu lts) [facility] ([facility]) Venous Standard Hco3 23.5 meq/L Normal (applies to non-num denita results) [facility] ([facility]) Venous O2 Saturation 88.1 % 60.0-80.0 Above high normal [facility] ([facility]) Venous Base Excess -1.0 Normal (applies to non-numer ic results) [facility] ([facility]) ID Date Data Source [id number] 12/29/2019 11:00:00 AM EDT [facility] Name Value Range Interpretation Code Description Data Tisha rce(s) Supporting Document(s) SARS coronavirus 2 RNA [facility] This lab was ordered by [facility] and reported by [facility]. ID Date Data Source [id number] 12/28/2019 09:54:00 AM EDT [facility]) Name Value Range Interpretation Code Description Data Tisha rce(s) Supporting Document(s) Laboratory test finding (navigational concept) 41.0 % 3 8.0-51.0 Normal (applies to non-numeric results) [facility] ([facility]) Laboratory test finding (navigational concept) 135 meq/L 1 36-145 Below low normal [facility] ([facility]) Laboratory test finding (navigational concept) 4.3 meq/L 3 .5-5.1 Normal (applies to non-numeric results) [facility] ([facility]) Laboratory test finding (navigational concept) 206 mg/dL 7 0-105 Above high normal [facility] Laboratory test finding (navigational concept) 25.0 MM/L 2 3.0-27.0 Normal (applies to non-numeric results) [facility] ([facility]) Laboratory test finding (navigational concept) 4.8 mg/dL 4 .5-5.3 Normal (applies to non-numeric results) [facility] ([facility]) Laboratory test finding (navigational concept) 38 mg/dL 8-26 Above high normal [facility] ([facility]) Laboratory test finding (navigational concept) 100 meq/L 9 8-109 Normal (applies to non-numeric results) [facility] ([facility]) Laboratory test finding (navigational concept) 1.4 mg/dL 0 .6-1.3 Above high normal [facility] ([facility]) ID Date Data Source [id number] 12/27/2019 01:50:00 PM EDT [facility] ([facility] Name Value Range Interpretation Code Description Data Tisha rce(s) Supporting Document(s) Blood Urea Nitrogen 36 mg/dL 7-18 Above high normal [facility] ([facility] Glucose, Fasting 71 mg/dL 70-100 [facility] ([facility] Sodium Level 133 meq/L 136-145 [facility] ([facility] Glomerular Filtration Rate 30.1 [facility] ([facility] <content>Units are mL/min/1.73 m2</content>
<content></content>
<content>Chronic Kidney Disease Staging per NKF:</content>
<content></content>
<content>Stage I & II GFR >=60 Normal to Mildly Decreased</content>
<content>Stage III GFR 30- 59 Moderately Decreased</content>
<content>Stage IV GFR 15-29 Severely Decreased</content>
<content>Stage V GFR <15 Very Little GFR Left</content>
<content>ESRD GFR <15 on ELEMENT BURNER</content>
<content></content> Creatinine For GFR 1.87 mg/dL 0.55-1.30 Above high normal [facility] ([facility] Chloride Level 100 meq/L 98-107 [facility] ([facility] Potassium Serum 4.3 meq/L 3.5-5.1 [facility] ([facility] Calcium Level 8.7 mg/dL 8.5-10.1 [facility] ([facility] Anion Gap 8 meq/L 8-16 [facility] ([facility] Carbon Dioxide Level 25 meq/L 21-32 [facility] ([facility] ID Date Data Source [id number] 12/27/2019 01:50:00 PM EDT [facility] ([facility] Name Value Range Interpretation Code Description Data Tisha rce(s) Supporting Document(s) White Blood Count 13.7 10 4.0-10.0 Above high normal [facility] ([facility] Red Blood Count 5.17 10 4.00-5.40 [facility] ([facility] Hemoglobin 13.9 g/dL 12.0-15.5 [facility] ([facility] Hematocrit 43.5 % 36.0-47.0 [facility] ([facility] Mean Corpuscular Volume 84.1 fl 80.0-96.0 M [facility] ([facility] Mean Corpuscular Hemoglobin 26.9 pg 27.0-33.0 [facility] ([facility] Mean Corpuscular HGB Conc 32.0 g/dL 32.0-36.5 [facility] ([facility] Platelet Count, Automated 337 10 150-450 [facility] ([facility] Red Cell Distribution Width 13.9 % 11.5-14.5 [facility] ([facility] Nucleated Red Blood Cell % 0.0 % 0-0 [facility] ([facility] ID Date Data Source [id number] 12/27/2019 01:50:00 PM EDT [facility] ([facility]) Name Value Range Interpretation Code Description Data Tisha rce(s) Supporting Document(s) White Blood Count 13.7 10 4.0-10.0 Above high normal [facility] ([facility]) Hematocrit 43.5 % 36.0-47.0 Normal (applies to non-numeric resul ts) [facility] ([facility]) Hemoglobin 13.9 g/dL 12.0-15.5 Normal (applies to non-numeric resul ts) [facility] ([facility]) Mean Corpuscular Volume 84.1 fl 80.0-96.0 Normal ( applies to non-numeric results) [facility] ([facility]) Red Blood Count 5.17 10 4.00-5.40 Normal (applies to non-numeric results) [facility] Mean Corpuscular HGB Conc 32.0 g/dL 32.0-36.5 Normal (applies to non-numeric results) [facility] ([facility]) Red Cell Distribution Width 13.9 % 11.5-14.5 Norm al (applies to non-numeric results) [facility] ([facility]) Mean Corpuscular Hemoglobin 26.9 pg 27.0-33.0 Below low normal [facility] Platelet Count, Automated 337 10 150-450 Normal (applies to non-numeric results) [facility] ([facility]) Nucleated Red Blood Cell % 0.0 % 0-0 Normal (applies to n on-numeric results) [facility] ([facility]) ID Date Data Source [id number] 12/27/2019 01:50:00 PM EDT [facility] Name Value Range Interpretation Code Description Data Tisha rce(s) Supporting Document(s) Blood Urea Nitrogen 36 mg/dL 7-18 Above high normal [facility] ([facility]) Creatinine For GFR 1.87 mg/dL 0.55-1.30 Above high normal [facility] ([facility]) Glucose, Fasting 71 mg/dL 70-100 Normal (applies to non-numeric results) [facility] Glomerular Filtration Rate 30.1 Below low normal [facility] ([facility]) <content>Units are mL/min/1.73 m2</content>
<content></content>
<content>Chronic Kidney Disease Staging per NKF:</content>
<content></content>
<content>Stage I & II GFR >=60 Normal to Mildly Decreased</content>
<content>Stage III GFR 30- 59 Moderately Decreased</content>
<content>Stage IV GFR 15-29 Severely Decreased</content>
<content>Stage V GFR <15 Very Little GFR Left</content>
<content>ESRD GFR <15 on ELEMENT BURNER</content>
<content></content> Sodium Level 133 meq/L 136-145 Below low normal [facility] ([facility]) Potassium Serum 4.3 meq/L 3.5-5.1 Normal (applies to non-numeric results) [facility] ([facility]) Anion Gap 8 meq/L 8-16 Normal (applies to non-numeric resul ts) [facility] ([facility]) Chloride Level 100 meq/L 98-107 Normal (applies to non-numeric r esults) [facility] ([facility]) Carbon Dioxide Level 25 meq/L 21-32 Normal (applies to non-num denita results) [facility] ([facility]) Calcium Level 8.7 mg/dL 8.5-10.1 Normal (applies to non-numeric re sults) [facility] ID Date Data Source [id number] 12/27/2019 01:40:00 PM EDT [facility] ([facility]) Name Value Range Interpretation Code Description Data Tisha rce(s) Supporting Document(s) Natriuretic peptide.B prohormone N-Terminal [Mass/volu me] in Serum or Plasma 211 pg/mL Above high normal [facility] ([facility]) <content>note:<nlbl:demographic_changed> </content>
<content></content> ID Date Data Source [id number] 12/27/2019 01:40:00 PM EDT [facility] ([facility]) Name Value Range Interpretation Code Description Data Tisha rce(s) Supporting Document(s) Malb Urine Siemens 22.2 mg/L Normal (applies to non-numer ic results) [facility] Creatinine, Urine 195.0 mg/dL Normal (applies to non-numer ic results) [facility] ([facility]) Kevyn/Creat Ratio 11.3 MCG/MG 0.0-30.0 Normal (applies to non-numeric results) [facility] ([facility]) THE CITIZEN [employer] STATES THAT MICROALBUMINURIA IS PRESENT IF THE MICROALBUMIN/CREATININE RATIO EXCEEDS 30 MCG/MG. THE THRESHOLD FOR CLINICAL ALBUMINURIA IS REACHED AT 300 MCG/MG. THE CLASSIFICATION OF A PATIENT SHOULD BE BASED UPON AT LEAST 2 OF 3 ABNORMAL RESULTS ON SPECIMENS COLLECTED WITHIN A 3 TO 6 MONTH TIME FRAME. ID Date Data Source [id number] 12/27/2019 01:40:00 PM EDT [facility] ([facility]) Name Value Range Interpretation Code Description Data Tisha rce(s) Supporting Document(s) Hemoglobin A1c 9.1 % Normal (applies to non-numeric r esults) [facility] ([facility]) <content>REFERENCE RANGES:</content><br/ ><content></content>
<content><=5.6% NORMAL</content>
<content>5.7-6.4% SUGGESTS IMPAIRED GLUCOSE METABOLISM/PREDIABETIC</content>
<content>>= 6.5% ABNORMAL</content>
<content></content> Estimated Average Glucose 214 mg/dL 60-110 Above high normal [facility] ([facility]) ID Date Data Source [id number] 12/27/2019 01:40:00 PM EDT [facility] ([facility]) Name Value Range Interpretation Code Description Data Tisha rce(s) Supporting Document(s) Red Blood Count 5.19 10 4.00-5.40 Normal (applies to non-numeric results) [facility] ([facility]) White Blood Count 13.9 10 4.0-10.0 Above high normal [facility] ([facility]) Hemoglobin 14.0 g/dL 12.0-15.5 Normal (applies to non-numeric resul ts) [facility] ([facility]) Hematocrit 43.7 % 36.0-47.0 Normal (applies to non-numeric resul ts) [facility] ([facility]) Mean Corpuscular Volume 84.2 fl 80.0-96.0 Normal ( applies to non-numeric results) [facility] ([facility]) Mean Corpuscular Hemoglobin 27.0 pg 27.0-33.0 Norm al (applies to non-numeric results) [facility] ([facility]) Red Cell Distribution Width 13.8 % 11.5-14.5 Norm al (applies to non-numeric results) [facility] ([facility]) Mean Corpuscular HGB Conc 32.0 g/dL 32.0-36.5 Normal (applies to non-numeric results) [facility] ([facility]) Platelet Count, Automated 310 10 150-450 Normal (applies to non-numeric results) [facility] ([facility]) Neutrophils % 67.6 % 36.0-66.0 Above high normal [facility] ([facility]) Lymph % 24.0 % 24.0-44.0 Normal (applies to non-numeric resul ts) [facility] ([facility]) Eos % 1.9 % 0.0-3.0 Normal (applies to non-numeric resul ts) [facility] ([facility]) Baso % 0.6 % 0.0-1.0 Normal (applies to non-numeric resul ts) [facility] ([facility]) Rock % 5.1 % 0.0-5.0 Above high normal [facility] ([facility]) Immature Granulocyte % 0.8 % 0-3.0 Normal (applies to non-n umeric results) [facility] ([facility]) Nucleated Red Blood Cell % 0.0 % 0-0 Normal (applies to n on-numeric results) [facility] ([facility]) Neutrophils # 9.4 10 1.5-8.5 Above high normal [facility] ([facility]) Rock # 0.7 10 0.0-0.8 Normal (applies to non-numeric resul ts) [facility] ([facility]) Eos # 0.3 10 0.0-0.5 Normal (applies to non-numeric resul ts) [facility] ([facility]) Lymph # 3.3 10 1.5-5.0 Normal (applies to non-numeric resul ts) [facility] ([facility]) Baso # 0.1 10 0.0-0.2 Normal (applies to non-numeric resul ts) [facility] ([facility]) ID Date Data Source [id number] 12/27/2019 01:40:00 PM EDT [facility] ([facility]) Name Value Range Interpretation Code Description Data Tisha rce(s) Supporting Document(s) Blood Urea Nitrogen 37 mg/dL 7-18 Above high normal [facility] ([facility]) Glucose, Fasting 73 mg/dL 70-100 Normal (applies to non-numeric results) [facility] ([facility]) Creatinine For GFR 1.92 mg/dL 0.55-1.30 Above high normal [facility] ([facility]) Sodium Level 132 meq/L 136-145 Below low normal [facility] ([facility]) Potassium Serum 4.3 meq/L 3.5-5.1 Normal (applies to non-numeric results) [facility] ([facility]) Glomerular Filtration Rate 29.2 Below low normal [facility] <content>Units are mL/min/1.73 m2</content>
<content></content>
<content>Chronic Kidney Disease Staging per NKF:</content>
<content></content>
<content>Stage I & II GFR >=60 Normal to Mildly Decreased</content>
<content>Stage III GFR 30- 59 Moderately Decreased</content>
<content>Stage IV GFR 15-29 Severely Decreased</content>
<content>Stage V GFR <15 Very Little GFR Left</content>
<content>ESRD GFR <15 on ELEMENT BURNER</content>
<content></content> Carbon Dioxide Level 24 meq/L 21-32 Normal (applies to non-num denita results) [facility] ([facility]) Anion Gap 6 meq/L 8-16 Below low normal [facility] ( [facility]) Chloride Level 102 meq/L 98-107 Normal (applies to non-numeric r esults) [facility] ([facility]) Ast/Sgot 16 U/L 7-37 Normal (applies to non-numeric resul ts) [facility] ([facility]) Calcium Level 8.7 mg/dL 8.5-10.1 Normal (applies to non-numeric re sults) [facility] ([facility]) Alt/SGPT 19 U/L 12-78 Normal (applies to non-numeric resul ts) [facility] ([facility]) Alkaline Phosphatase 163 U/L 45-117 Above high normal [facility] ([facility]) Bilirubin,Total 0.2 mg/dL 0.2-1.0 Normal (applies to non-numeric results) [facility] ([facility]) Total Protein 7.0 GM/DL 6.4-8.2 Normal (applies to non-numeric re sults) [facility] ([facility]) Albumin 2.9 GM/DL 3.2-5.2 Below low normal [facility] ( [facility]) Albumin/Globulin Ratio 0.7 1.2-2.2 Below low normal [facility] ([facility]) ID Date Data Source [id number] 12/27/2019 01:40:00 PM EDT [facility] ([facility]) Name Value Range Interpretation Code Description Data Tisha rce(s) Supporting Document(s) Cholesterol Level 159 mg/dL Normal (applies to non-numeri c results) [facility] ([facility]) Triglycerides Level 294 mg/dL Above high normal [facility] ([facility]) HDL Cholesterol 39 mg/dL Below low normal [facility] ([facility]) Non-HDL-C 120 mg/dL Normal (applies to non-numeric resul ts) [facility] ([facility]) LDL Cholesterol 61 mg/dL Normal (applies to non-numeric results) [facility] ([facility]) Cholesterol Risk Ratio 4.076 Normal (applies to non-n umeric results) [facility] ([facility]) ID Date Data Source [id number] 12/08/2019 06:58:55 AM EDT [facility]FORMATIONPatient [facility] Name Date of Age Gend*PT [id number] Charles Tatianna 1965 54 years F EDPT Location Admission Date/Time Visit ID Attending Provider --- --- --- --- EPI ID CSN Admitting Provider [id number] ---Attestation signed by Yohan Sal MD at 12/08/2019 6:58 AMMid Level Attestation: SUPERVISED APC: Based on the medical record the careappears appropriate ED Provider in Triage Megan [id number] HPI: Patient is a 54 y/o female who presents to the ED with central CP x 2weeks. History of VT s/p CABG in 2016. Takes Plavix. Smokes 1 PPDPhysical exam:Patient seated in whee lchairPositive Cervantes's signTachycardic in triagePreliminary Plan:Labs, EKG, troponin, CTAVitals: 12/07/19 1916BP: 96/64Pulse: 114Resp: 18Temp: 99 FSpO2: 96%ED GLENIS Coyne12/07/19 1923Kanalisa Sal MD12/08/19 0658 Name Value Range Interpretation Code Description Data Tisha rce(s) Supporting Document(s) ID Date Data Source [id number] 12/08/2019 06:48:22 AM EDT [facility] Name Value Range Interpretation Code Description Data Tisha rce(s) Supporting Document(s) EKG [facility] [id number] [file] [id number]= ID Date Data Source [id number] 12/07/2019 08:42:59 PM EDT [address] [address] Name: TATIANNA SOTOB: 1965Sex: FOrdering Provider: ROSAS Pena Prov: ROSAS LEOSivanerrregine Provider: Procedure Performed: CT ANGIOGRAM CHESTExam Date: 12/07/2019 20:34MRN: [id number] Number: [id number] Class: EmergencyAccount #: [id number] for Exam: CP x 2 weeks, tachy, heavy smokerTechnique: Helical axial images were obtained during the administration 70ml of Isovue 370 IV contrast.One or more of the following dose reduction techniqueswere utilized; automated exposure control, dose modulation, technique adjustment based on patient size and iterativereconstruction algorithms. Maximum Intensity Projections (MIP) and/or other multiplanar images images were created and reviewed.Comparison: NoneFindings: No aortic dissection or aneurysm is seen in the chest. Coronary calcifications are seen. Post CABG status is noted with an aortic left marginal graft. KULKARNI bypass may also be present. Poststernotomy status is noted.Trachea and central airways are patent. No acute pulmonary parenchymal or pleural pathologic process identified. No pulmonary arterial embolus is identified. No aggressive osseous lesion is seen.17 mm left adrenal nodule is seen.IMPRESSION: No evidence of pulmonary arterial embolus identified. There is a 17 mm left adrenal nodule which is unchanged compared to the prior study.Report electronically signed by: ALMA DELIA VILLELA On 12/07/2019 8:42 PMWorkstation ID: [id number] Name Value Range Interpretation Code Description Data Tisha rce(s) Supporting Document(s) ID Date Data Source [id number] 12/07/2019 08:03:27 PM EDT [facility] Name Value Range Interpretation Code Description Data Tisha rce(s) Supporting Document(s) POC CTNI <0.01 ng/mL (0.01-0.07) L [facility] Less than 0.08: Myocardial injury unlike lyGreater than or equal to 0.08: Highlysuggestive of myocardial injuryCorrelation with rise and/or fall ofserial troponins, clinical symptoms,and ECG changes is necessary.PERFORMED BY [facility] CLINICAL STAFF ID Date Data Source [id number] 12/07/2019 08:26:31 PM EDT [facility] Name Value Range Interpretation Code Description Data Tisha rce(s) Supporting Document(s) NT PRO BNP 189 pg/mL (0-125) H [facility] ID Date Data Source [id number] 12/07/2019 08:19:55 PM EDT [facility] Name Value Range Interpretation Code Description Data Tisha rce(s) Supporting Document(s) MAGNESIUM 2.4 mg/dL (1.7-2.4) [facility] ID Date Data Source [id number] 12/07/2019 08:19:55 PM EDT [facility] Name Value Range Interpretation Code Description Data Tisha rce(s) Supporting Document(s) SODIUM 134 mmol/L (136-145) L [facility] POTASSIUM 4.2 mmol/L (3.6-5.2) [facility] CHLORIDE 100 mmol/L (100-108) [facility] CO2 25 mmol/L (22-31) [facility] ANION GAP 9 mmol/L (7-16) [facility] UREA NITROGEN 24 mg/dL (7-24) [facility] CREATININE 1.17 mg/dL (0.60-1.00) H [facility] BUN/CREAT RATIO 20.5 RATIO (10.0-20.0) H [facility] GLUCOSE 339 mg/dL (70-99) H [facility] CALCIUM 9.9 mg/dL (8.4-10.2) [facility] GFR 49 ml/min/1.73m2 (>59) L [facility] GFR ( AMER) 59 ml/min/1.73m2 (>59) L [facility] GFR INTERPRETATION [facility] --NORMAL KIDNEY FUNCTION OR MILD DISEASE - GFR >OR= 60CHRONIC KIDNEY DISEASE - GFR 15 - 59RENAL FAILURE - GFR <15 Est. GFR calculation based on the MDRDstudy equation, which assumes a steadystate for creatinine. Est. GFR should notbe used for medication dosing. ID Date Data Source [id number] 12/07/2019 08:16:10 PM EDT [facility] Name Value Range Interpretation Code Description Data Tisha rce(s) Supporting Document(s) APTT 24.9 s (22.0-34.3) [facility] ID Date Data Source [id number] 12/07/2019 08:16:10 PM EDT [facility] Name Value Range Interpretation Code Description Data Tisha rce(s) Supporting Document(s) PT 10.1 s (9.2-11.9) [facility] INR 0.96 [facility] SUGGESTED THERAPEUTIC RANGES USING INR F ORSTABILIZED ANTICOAGULATED PATIENTS:STANDARD DOSE THERAPY INR 2.0-3.0 DVT, PE, PREVENT DVT OR EMBOLISMHIGH DOSE THERAPY INR 2.5-3.5 PREVENT EMBOLISM FROM MECHANICAL HEART VALVE ID Date Data Source [id number] 12/07/2019 08:06:44 PM EDT [facility] Name Value Range Interpretation Code Description Data Tisha rce(s) Supporting Document(s) WBC 12.3 10*3/uL (4.1-11.0) H [facility] RBC 5.85 10*6/uL (4.00-5.40) H [facility] HGB 15.7 g/dL (12.0-16.0) [facility] HCT 48.4 % (36.0-47.0) H [facility] MCV 82.8 fL (80.0-95.0) [facility] MCH 26.8 pg (27.0-32.0) L [facility] MCHC 32.4 g/dL (32.0-36.0) [facility] RDW 15.1 % (10.5-14.5) H [facility] PLT 348 10*3/uL (150-450) [facility] MPV 8.1 fL (7.1-10.7) [facility] NEUT % 70.6 % (35.0-75.0) [facility] LYMPH % 19.5 % (16.0-52.0) [facility] MONO % 6.4 % (0.0-8.0) [facility] EOS % 3.2 % (0.0-5.0) [facility] BASO % 0.3 % (0.0-4.0) [facility] NEUT # 8.7 10*3/uL (1.8-7.7) H [facility] LYMPH # 2.4 10*3/uL (1.2-4.8) [facility] MONO # 0.8 10*3/uL (0.0-0.8) [facility] Eosinophils [#/volume] in Blood by Automated count 0.4 10*3/uL (0.0-0 .5) [facility] BASO # 0.0 10*3/uL (0.0-0.2) [facility] ID Date Data Source [id number] 11/08/2019 01:12:00 PM EDT [facility] ([facility]) Name Value Range Interpretation Code Description Data Tisha rce(s) Supporting Document(s) Laboratory test finding (navigational concept) 44.0 % 3 8.0-51.0 Normal (applies to non-numeric results) [facility] ([facility]) Laboratory test finding (navigational concept) 178 mg/dL 7 0-105 Above high normal [facility] ([facility]) Laboratory test finding (navigational concept) 140 meq/L 1 36-145 Normal (applies to non-numeric results) [facility] ([facility]) Laboratory test finding (navigational concept) 4.7 mg/dL 4 .5-5.3 Normal (applies to non-numeric results) [facility] Laboratory test finding (navigational concept) 3.8 meq/L 3 .5-5.1 Normal (applies to non-numeric results) [facility] Laboratory test finding (navigational concept) 102 meq/L 9 8-109 Normal (applies to non-numeric results) [facility] Laboratory test finding (navigational concept) 17 mg/dL 8 -26 Normal (applies to non-numeric results) [facility] Laboratory test finding (navigational concept) 30.0 MM/L 2 3.0-27.0 Above high normal [facility] ([facility]) Laboratory test finding (navigational concept) 0.7 mg/dL 0 .6-1.3 Normal (applies to non-numeric results) [facility] ([facility]) ID Date Data Source [id number] 11/08/2019 01:11:00 PM EDT [facility] ([facility]) Name Value Range Interpretation Code Description Data Tisha rce(s) Supporting Document(s) Venous PH 7.352 units 7.330-7.430 Normal (applies to non-numeric res ults) [facility] Venous Partial Pressure Co2 56.7 mmHg 38.0-50.0 Above high normal [facility] ([facility]) Venous Partial Pressure O2 36.1 mmHg 30.0-50.0 Nellie l (applies to non-numeric results) [facility] ([facility]) Venous Total Co2 32.5 meq/L 24.0-28.0 Above high normal [facility] Venous Standard Hco3 27.0 meq/L Normal (applies to non-num denita results) [facility] ([facility]) Venous Hco3 30.7 meq/L 23.0-27.0 Above high normal [facility] ([facility]) Venous Base Excess 3.6 Above high normal [facility] ([facility]) Venous O2 Saturation 69.2 % 60.0-80.0 Normal (applies to non-num denita results) [facility] ([facility]) ID Date Data Source [id number] 11/08/2019 01:11:00 PM EDT [facility] ([facility]) Name Value Range Interpretation Code Description Data Tisha rce(s) Supporting Document(s) White Blood Count 10.9 10 4.0-10.0 Above high normal [facility] ([facility]) Red Blood Count 5.11 10 4.00-5.40 Normal (applies to non-numeric results) [facility] ([facility]) Hemoglobin 14.0 g/dL 12.0-15.5 Normal (applies to non-numeric resul ts) [facility] Mean Corpuscular HGB Conc 31.9 g/dL 32.0-36.5 Below low normal [facility] ([facility]) Hematocrit 43.9 % 36.0-47.0 Normal (applies to non-numeric resul ts) [facility] ([facility]) Mean Corpuscular Hemoglobin 27.4 pg 27.0-33.0 Norm al (applies to non-numeric results) [facility] ([facility]) Mean Corpuscular Volume 85.9 fl 80.0-96.0 Normal ( applies to non-numeric results) [facility] ([facility]) Red Cell Distribution Width 13.4 % 11.5-14.5 Norm al (applies to non-numeric results) [facility] ([facility]) Platelet Count, Automated 281 10 150-450 Normal (applies to non-numeric results) [facility] ([facility]) Neutrophils % 71.9 % 36.0-66.0 Above high normal [facility] ([facility]) Eos % 3.4 % 0.0-3.0 Above high normal [facility] ([facility]) Lymph % 17.4 % 24.0-44.0 Below low normal [facility] ( [facility]) Rock % 6.3 % 0.0-5.0 Above high normal [facility] ([facility]) Baso % 0.6 % 0.0-1.0 Normal (applies to non-numeric resul ts) [facility] ([facility]) Immature Granulocyte % 0.4 % 0-3.0 Normal (applies to non-n umeric results) [facility] ([facility]) Nucleated Red Blood Cell % 0.0 % 0-0 Normal (applies to n on-numeric results) [facility] ([facility]) Neutrophils # 7.8 10 1.5-8.5 Normal (applies to non-numeric re sults) [facility] ([facility]) Rock # 0.7 10 0.0-0.8 Normal (applies to non-numeric resul ts) [facility] ([facility]) Lymph # 1.9 10 1.5-5.0 Normal (applies to non-numeric resul ts) [facility] ([facility]) Eos # 0.4 10 0.0-0.5 Normal (applies to non-numeric resul ts) [facility]) Baso # 0.1 10 0.0-0.2 Normal (applies to non-numeric resul ts) [facility] ([facility]) ID Date Data Source [id number] 11/08/2019 01:11:00 PM EDT [facility]) Name Value Range Interpretation Code Description Data Tisha rce(s) Supporting Document(s) Inr 1.02 Normal (applies to non-numeric resul ts) [facility]) THERAPUTIC HUMAN INR VALUES INDICATIONS NORMAL RANGES PROPHYLAXIS/TREATMENT OF: VENOUS THROMBOSIS 2.0-3.0 PULMONARY EMBOLISM 2.0-3.0 PREVENTION OF SYSTEMIC EMBOLISM FROM: TISSUE HEART VALVES 2.0-3.0 ACUTE MYOCARDIAL INFARCTION 2.0-3.0 VALVULAR HEART DISEASE 2.0-3.0 ATRIAL FIBRILLATION 2.0-3.0 MECHANICAL VALVES(HIGH RISK) 2.5-3.5 RECURRENT MYOCARDIAL INFARCTION 2.5-3.5 Prothrombin Time 13.1 s 11.8-14.0 Normal (applies to non-numeric results) [facility] ([facility]) ID Date Data Source [id number] 11/08/2019 01:11:00 PM EDT [facility] ([facility]) Name Value Range Interpretation Code Description Data Tisha rce(s) Supporting Document(s) Lactate [Mass/volume] in Serum or Plasma 1.2 mmol/L 0.4-2.0 Normal (applies to non-numeric results) [facility] ([facility]) <content>note:<nlbl:demographic_changed> </content>
<content>Y/N query for Sepsis Lactate Rule: Y</content>
<content></content> ID Date Data Source [id number] 11/08/2019 01:11:00 PM EDT [facility] ([facility]) Name Value Range Interpretation Code Description Data Tisha rce(s) Supporting Document(s) CPK Creatine Phosphokinase 26 U/L 26-192 Nellie l (applies to non-numeric results) [facility]) MB/CK Relative Index 3.85 Normal (applies to non-num denita results) [facility] ([facility]) <content>DIAGNOSIS CRITERIA</content>
<content>MMB ng/ml Relative Index (RI)</content>
<content>NON-AMI < or = 5 N/A</content>
<content>DICKERSON ZONE > 5 < or = 4</content>
<content>AMI > 5 > 4</content>
<content></content> CK-MB Value Mass 1.0 ng/mL Normal (applies to non-numeric results) [facility] ([facility]) Troponin I Laboratory test result Normal (applies to non-n umeric results) [facility] ([facility]) <content>Troponin I Reference Interval f or Siemens [place] LOCI:</content>
<content></content>
<content>99th Percentile= 0.00-0.045 ng/ml</content>
<content></content>
<content>Risk Stratification:</content>
<content><= 0.10 ng/ml Decreased Risk for Adverse Clinical</content>
<content>Events.</content>
<content>0.10-1.50 ng/ml Increased Risk for Adverse Clinical</content>
<content>Events. Evaluation of additional</content>
<content>criterion and/or repeat testing in 2-6</content>
<content>hours is suggested to rule out myocardial</content>
<content>damage.</content>
<content>>= 1.50 ng/ml Indicative of Myocardial Injury.</content>
<content></content> ID Date Data Source [id number] 11/08/2019 01:11:00 PM EDT [facility] ([facility]) Name Value Range Interpretation Code Description Data Tisha rce(s) Supporting Document(s) Blood Urea Nitrogen 15 mg/dL 7-18 Normal (applies to non-nume yogesh results) [facility] ([facility]) Glucose, Fasting 169 mg/dL 70-100 Above high normal [facility] ([facility]) Creatinine For GFR 0.81 mg/dL 0.55-1.30 Normal (applies to non -numeric results) [facility] ([facility]) Glomerular Filtration Rate Laboratory test result Normal (applies to non- numeric results) [facility] ([facility]) <content>Units are mL/min/1.73 m2</content>
<content></content>
<content>Chronic Kidney Disease Staging per NKF:</content>
<content></content>
<content>Stage I & II GFR >=60 Normal to Mildly Decreased</content>
<content>Stage III GFR 30- 59 Moderately Decreased</content>
<content>Stage IV GFR 15-29 Severely Decreased</content>
<content>Stage V GFR <15 Very Little GFR Left</content>
<content>ESRD GFR <15 on ELEMENT BURNER</content>
<content></content> Potassium Serum 3.9 meq/L 3.5-5.1 Normal (applies to non-numeric results) [facility] ([facility]) Sodium Level 142 meq/L 136-145 Normal (applies to non-numeric res ults) [facility] ([facility]) Chloride Level 105 meq/L 98-107 Normal (applies to non-numeric r esults) [facility] ([facility]) Anion Gap 6 meq/L 8-16 Below low normal [facility] ( [facility]) Carbon Dioxide Level 31 meq/L 21-32 Normal (applies to non-num denita results) [facility] ([facility]) Calcium Level 9.3 mg/dL 8.5-10.1 Normal (applies to non-numeric re sults) [facility] ([facility]) ID Date Data Source [id number] 11/08/2019 01:11:00 PM EDT [facility]) Name Value Range Interpretation Code Description Data Tisha rce(s) Supporting Document(s) Thyrotropin [Units/volume] in Serum or Plasma 2.260 uIU/ML 0. 358-3.740 Normal (applies to non-numeric results) [facility] ([facility]) <content>note:<nlbl:demographic_changed> </content>
<content></content> ID Date Data Source [id number] 11/07/2019 09:30:00 AM EDT [facility] ([facility]) Name Value Range Interpretation Code Description Data Tisha rce(s) Supporting Document(s) Glucose [Mass/volume] in Capillary blood by Glucometer 176 mg/dL 70-105 Above high normal [facility] ([facility]) ID Date Data Source [id number] 11/07/2019 09:30:00 AM EDT [facility] ([facility] ) Name Value Range Interpretation Code Description Data Tisha rce(s) Supporting Document(s) Glucose [Mass/volume] in Capillary blood by Glucometer 176 mg/dL 70-105 Above high normal [facility] ([facility], ) ID Date Data Source [id number] 11/07/2019 06:55:00 AM EDT [facility] ([facility]) Name Value Range Interpretation Code Description Data Tisha rce(s) Supporting Document(s) Glucose [Mass/volume] in Capillary blood by Glucometer 292 mg/dL 70-105 Above high normal [facility] ([facility]) ID Date Data Source [id number] 11/07/2019 06:55:00 AM EDT [facility] ([facility], ) Name Value Range Interpretation Code Description Data Tisha rce(s) Supporting Document(s) Glucose [Mass/volume] in Capillary blood by Glucometer 292 mg/dL 70-105 Above high normal [facility] ([facility]) ID Date Data Source [id number] 11/05/2019 06:03:00 AM EDT [facility] ([facility]) Name Value Range Interpretation Code Description Data Tisha rce(s) Supporting Document(s) Glucose [Mass/volume] in Capillary blood by Glucometer 80 mg/dL 70-105 Normal (applies to non-numeric results) [facility] ([facility]) ID Date Data Source [id number] 11/05/2019 05:06:00 AM EDT [facility] Name Value Range Interpretation Code Description Data Tisha rce(s) Supporting Document(s) Glucose [Mass/volume] in Capillary blood by Glucometer 123 mg/dL 70-105 Above high normal [facility] ([facility]) ID Date Data Source [id number] 11/05/2019 02:48:00 AM EDT [facility]) Name Value Range Interpretation Code Description Data Tisha rce(s) Supporting Document(s) White Blood Count 10.9 10 4.0-10.0 Above high normal [facility] ([facility]) Red Blood Count 4.75 10 4.00-5.40 Normal (applies to non-numeric results) [facility] ([facility]) Hematocrit 41.9 % 36.0-47.0 Normal (applies to non-numeric resul ts) [facility] ([facility]) Mean Corpuscular Hemoglobin 27.2 pg 27.0-33.0 Norm al (applies to non-numeric results) [facility] ([facility]) Mean Corpuscular Volume 88.2 fl 80.0-96.0 Normal ( applies to non-numeric results) [facility] ([facility]) Hemoglobin 12.9 g/dL 12.0-15.5 Normal (applies to non-numeric resul ts) [facility] ([facility]) Platelet Count, Automated 287 10 150-450 Normal (applies to non-numeric results) [facility] ([facility]) Mean Corpuscular HGB Conc 30.8 g/dL 32.0-36.5 Below low normal [facility] ([facility]) Red Cell Distribution Width 13.7 % 11.5-14.5 Norm al (applies to non-numeric results) [facility] ([facility]) Eos % 2.4 % 0.0-3.0 Normal (applies to non-numeric resul ts) [facility] ([facility]) Neutrophils % 71.8 % 36.0-66.0 Above high normal [facility] ([facility]) Rock % 6.4 % 0.0-5.0 Above high normal [facility] ([facility]) Lymph % 18.3 % 24.0-44.0 Below low normal [facility] ( [facility]) Immature Granulocyte % 0.5 % 0-3.0 Normal (applies to non-n umeric results) [facility] ([facility]) Baso % 0.6 % 0.0-1.0 Normal (applies to non-numeric resul ts) [facility] ([facility]) Nucleated Red Blood Cell % 0.0 % 0-0 Normal (applies to n on-numeric results) [facility] ([facility]) Neutrophils # 7.8 10 1.5-8.5 Normal (applies to non-numeric re sults) [facility] ([facility]) Lymph # 2.0 10 1.5-5.0 Normal (applies to non-numeric resul ts) [facility] ([facility]) Rock # 0.7 10 0.0-0.8 Normal (applies to non-numeric resul ts) [facility] ([facility]) Eos # 0.3 10 0.0-0.5 Normal (applies to non-numeric resul ts) [facility] ([facility]) Baso # 0.1 10 0.0-0.2 Normal (applies to non-numeric resul ts) [facility] ([facility]) ID Date Data Source [id number] 11/05/2019 02:48:00 AM EDT [facility]) Name Value Range Interpretation Code Description Data Tisha rce(s) Supporting Document(s) Inr 1.00 Normal (applies to non-numeric resul ts) [facility] ([facility]) THERAPUTIC HUMAN INR VALUES INDICATIONS NORMAL RANGES PROPHYLAXIS/TREATMENT OF: VENOUS THROMBOSIS 2.0-3.0 PULMONARY EMBOLISM 2.0-3.0 PREVENTION OF SYSTEMIC EMBOLISM FROM: TISSUE HEART VALVES 2.0-3.0 ACUTE MYOCARDIAL INFARCTION 2.0-3.0 VALVULAR HEART DISEASE 2.0-3.0 ATRIAL FIBRILLATION 2.0-3.0 MECHANICAL VALVES(HIGH RISK) 2.5-3.5 RECURRENT MYOCARDIAL INFARCTION 2.5-3.5 Prothrombin Time 12.9 s 11.8-14.0 Normal (applies to non-numeric results) [facility] ([facility]) Partial Thromboplastin Time 23.9 s 25.0-38.4 Below low normal [facility] ([facility]) ID Date Data Source [id number] 11/05/2019 02:48:00 AM EDT [facility] ([facility]) Name Value Range Interpretation Code Description Data Tisha rce(s) Supporting Document(s) CPK Creatine Phosphokinase 45 U/L 26-192 Nellie l (applies to non-numeric results) [facility] ([facility]) MB/CK Relative Index 3.33 Normal (applies to non-num denita results) [facility] ([facility]) <content>DIAGNOSIS CRITERIA</content>
<content>MMB ng/ml Relative Index (RI)</content>
<content>NON-AMI < or = 5 N/A</content>
<content>DICK[place] ZONE > 5 < or = 4</content>
<content>AMI > 5 > 4</content>
<content></content> CK-MB Value Mass 1.5 ng/mL Normal (applies to non-numeric results) [facility] ([facility]) Troponin I Laboratory test result Normal (applies to non-n umeric results) [facility]) <content>Troponin I Reference Interval f or Siemens [place] LOCI:</content>
<content></content>
<content>99th Percentile= 0.00-0.045 ng/ml</content>
<content></content>
<content>Risk Stratification:</content>
<content><= 0.10 ng/ml Decreased Risk for Adverse Clinical</content>
<content>Events.</content>
<content>0.10-1.50 ng/ml Increased Risk for Adverse Clinical</content>
<content>Events. Evaluation of additional</content>
<content>criterion and/or repeat testing in 2-6</content>
<content>hours is suggested to rule out myocardial</content>
<content>damage.</content>
<content>>= 1.50 ng/ml Indicative of Myocardial Injury.</content>
<content></content> ID Date Data Source [id number] 11/05/2019 02:48:00 AM EDT [facility] ([facility]) Name Value Range Interpretation Code Description Data Tisha rce(s) Supporting Document(s) Glomerular Filtration Rate 55.5 Normal (applies to n on-numeric results) [facility]) <content>Units are mL/min/1.73 m2</content>
<content></content>
<content>Chronic Kidney Disease Staging per NKF:</content>
<content></content>
<content>Stage I & II GFR >=60 Normal to Mildly Decreased</content>
<content>Stage III GFR 30- 59 Moderately Decreased</content>
<content>Stage IV GFR 15-29 Severely Decreased</content>
<content>Stage V GFR <15 Very Little GFR Left</content>
<content>ESRD GFR <15 on ELEMENT BURNER</content>
<content></content> Glucose, Fasting 549 mg/dL 70-100 Above upper panic limits [facility] ([facility]) Creatinine For GFR 1.10 mg/dL 0.55-1.30 Normal (applies to non -numeric results) [facility] ([facility]) Blood Urea Nitrogen 20 mg/dL 7-18 Above high normal [facility] ([facility]) Sodium Level 140 meq/L 136-145 Normal (applies to non-numeric res ults) [facility] ([facility]) Chloride Level 104 meq/L 98-107 Normal (applies to non-numeric r esults) [facility] ([facility]) Potassium Serum 4.8 meq/L 3.5-5.1 Normal (applies to non-numeric results) [facility]) Testing was performed on a SLIGHTLY hemo lyzed specimen. Suggest recollection of specimen for more accurate test results. Carbon Dioxide Level 28 meq/L 21-32 Normal (applies to non-num denita results) [facility]) Anion Gap 8 meq/L 8-16 Normal (applies to non-numeric resul ts) [facility] ([facility]) Calcium Level 8.4 mg/dL 8.5-10.1 Below low normal [facility] ([facility]) ID Date Data Source [id number] 11/05/2019 02:48:00 AM EDT [facility] ([facility]) Name Value Range Interpretation Code Description Data Tisha rce(s) Supporting Document(s) Lipase [Enzymatic activity/volume] in Serum or Plasma 174 U/L 73-393 Normal (applies to non-numeric results) [facility] ([facility]) <content>note:<nlbl:demographic_changed> </content>
<content></content> ID Date Data Source [id number] 10/11/2019 03:34:00 PM EDT [facility] ([facility] Name Value Range Interpretation Code Description Data Tisha rce(s) Supporting Document(s) Glucose [Mass/volume] in Capillary blood by Glucometer 154 mg/dL 70-105 Above high normal [facility] ([facility] order not to draw Doctor Notified ID Date Data Source [id number] 10/11/2019 03:34:00 PM EDT [facility] ([facility]) Name Value Range Interpretation Code Description Data Tisha rce(s) Supporting Document(s) Glucose [Mass/volume] in Capillary blood by Glucometer 154 mg/dL 70-105 Above high normal [facility] ([facility]) order not to draw Doctor Notified ID Date Data Source [id number] 10/11/2019 02:11:00 PM EDT [facility] ([facility] Name Value Range Interpretation Code Description Data Tisha rce(s) Supporting Document(s) Glucose [Mass/volume] in Capillary blood by Glucometer 255 mg/dL 70-105 Above high normal [facility] ([facility] order not to draw Doctor Notified ID Date Data Source [id number] 10/11/2019 02:11:00 PM EDT [facility] ([facility]) Name Value Range Interpretation Code Description Data Tisha rce(s) Supporting Document(s) Glucose [Mass/volume] in Capillary blood by Glucometer 255 mg/dL 70-105 Above high normal [facility] ([facility]) not to draw Doctor Notified ID Date Data Source [id number] 10/11/2019 01:47:00 PM EDT [facility] Name Value Range Interpretation Code Description Data Tisha rce(s) Supporting Document(s) Surgical pathology study Laboratory test result [facility] ([facility] FINAL DIAGNOSIS Right 5th metatarsal head: Gangrenous necrosis, acute and chronic inflammation. Acute osteomyelitis. 10/13/2019 - 935 CLINICAL DIAGNOSIS Chronic ulcer right 5th metatarsal 10/12/2019 - 1116 GROSS DIAGNOSIS Received in formalin labeled "right 5th metatarsal head" and consists of a bone and soft tissue, 2 x 1.2 x 1 cm. Focus of ulcer noted. Bail Attacher sections are submitted in two. -OA 10/13/2019 - 36 Signed ELIN SEPULVEDA MD 10/13/2019 0937 ID Date Data Source [id number] 10/11/2019 12:04:00 PM EDT [facility] ([facility] Name Value Range Interpretation Code Description Data Tisha rce(s) Supporting Document(s) Glucose [Mass/volume] in Capillary blood by Glucometer 284 mg/dL 70-105 Above high normal [facility] ([facility] ID Date Data Source [id number] 10/11/2019 12:04:00 PM EDT [facility] ([facility]) Name Value Range Interpretation Code Description Data Tisha rce(s) Supporting Document(s) Glucose [Mass/volume] in Capillary blood by Glucometer 284 mg/dL 70-105 Above high normal [facility] ([facility]) ID Date Data Source [id number] 10/08/2019 12:00:00 AM EDT [facility] Name Value Range Interpretation Code Description Data Tisha rce(s) Supporting Document(s) SARS CORONAVIRUS 2 RNA [facility] This lab was ordered by [facility] and reported by [facility]. ID Date Data Source [id number] 09/26/2019 10:36:00 AM EDT [facility] ([facility] Name Value Range Interpretation Code Description Data Tisha rce(s) Supporting Document(s) Glucose, Fasting 154 mg/dL 70-100 Above high normal [facility] ([facility] Blood Urea Nitrogen 25 mg/dL 7-18 Above high normal [facility] ([facility] Creatinine For GFR 0.91 mg/dL 0.55-1.30 [facility] ([facility] Sodium Level 139 meq/L 136-145 [facility] ([facility] Potassium Serum 4.6 meq/L 3.5-5.1 [facility] ([facility] Glomerular Filtration Rate Laboratory test result [facility] ([facility] <content>Units are mL/min/1.73 m2</content>
<content></content>
<content>Chronic Kidney Disease Staging per NKF:</content>
<content></content>
<content>Stage I & II GFR >=60 Normal to Mildly Decreased</content>
<content>Stage III GFR 30- 59 Moderately Decreased</content>
<content>Stage IV GFR 15-29 Severely Decreased</content>
<content>Stage V GFR <15 Very Little GFR Left</content>
<content>ESRD GFR <15 on ELEMENT BURNER</content>
<content></content> Carbon Dioxide Level 30 meq/L 21-32 [facility] ([facility] Anion Gap 5 meq/L 8-16 [facility] ([facility] Chloride Level 104 meq/L 98-107 [facility] ([facility] Calcium Level 8.8 mg/dL 8.5-10.1 [facility] ([facility] ID Date Data Source [id number] 09/26/2019 10:36:00 AM EDT [facility] ([facility] Name Value Range Interpretation Code Description Data Tisha rce(s) Supporting Document(s) Red Blood Count 5.07 10 4.00-5.40 [facility] ([facility] White Blood Count 12.0 10 4.0-10.0 Above high normal [facility] ([facility] Hemoglobin 14.0 g/dL 12.0-15.5 [facility] ([facility] Hematocrit 44.6 % 36.0-47.0 [facility] ([facility] Mean Corpuscular Volume 88.0 fl 80.0-96.0 [facility] ([facility] Mean Corpuscular Hemoglobin 27.6 pg 27.0-33.0 [facility] ([facility] Mean Corpuscular HGB Conc 31.4 g/dL 32.0-36.5 [facility] ([facility] Platelet Count, Automated 304 10 150-450 [facility] ([facility] Red Cell Distribution Width 14.4 % 11.5-14.5 [facility] ([facility] Nucleated Red Blood Cell % 0.0 % 0-0 [facility] ([facility] ID Date Data Source [id number] 09/26/2019 10:36:00 AM EDT [facility] Name Value Range Interpretation Code Description Data Tisha rce(s) Supporting Document(s) Creatinine For GFR 0.91 mg/dL 0.55-1.30 Normal (applies to non -numeric results) [facility] Glucose, Fasting 154 mg/dL 70-100 Above high normal [facility] ([facility]) Blood Urea Nitrogen 25 mg/dL 7-18 Above high normal [facility] ([facility]) Sodium Level 139 meq/L 136-145 Normal (applies to non-numeric res ults) [facility] ([facility]) Glomerular Filtration Rate Laboratory test result Normal (applies to non- numeric results) [facility] ([facility]) <content>Units are mL/min/1.73 m2</content>
<content></content>
<content>Chronic Kidney Disease Staging per NKF:</content>
<content></content>
<content>Stage I & II GFR >=60 Normal to Mildly Decreased</content>
<content>Stage III GFR 30- 59 Moderately Decreased</content>
<content>Stage IV GFR 15-29 Severely Decreased</content>
<content>Stage V GFR <15 Very Little GFR Left</content>
<content>ESRD GFR <15 on ELEMENT BURNER</content>
<content></content> Potassium Serum 4.6 meq/L 3.5-5.1 Normal (applies to non-numeric results) [facility] ([facility]) Carbon Dioxide Level 30 meq/L 21-32 Normal (applies to non-num denita results) [facility] ([facility]) Anion Gap 5 meq/L 8-16 Below low normal [facility] ( [facility]) Chloride Level 104 meq/L 98-107 Normal (applies to non-numeric r esults) [facility] ([facility]) Calcium Level 8.8 mg/dL 8.5-10.1 Normal (applies to non-numeric re sults) [facility] ([facility]) ID Date Data Source [id number] 09/26/2019 10:36:00 AM EDT [facility] ([facility]) Name Value Range Interpretation Code Description Data Tisha rce(s) Supporting Document(s) Hemoglobin 14.0 g/dL 12.0-15.5 Normal (applies to non-numeric resul ts) [facility] ([facility]) White Blood Count 12.0 10 4.0-10.0 Above high normal [facility] ([facility]) Red Blood Count 5.07 10 4.00-5.40 Normal (applies to non-numeric results) [facility] ([facility]) Mean Corpuscular Volume 88.0 fl 80.0-96.0 Normal ( applies to non-numeric results) [facility] ([facility]) Hematocrit 44.6 % 36.0-47.0 Normal (applies to non-numeric resul ts) [facility] ([facility]) Mean Corpuscular Hemoglobin 27.6 pg 27.0-33.0 Norm al (applies to non-numeric results) [facility]) Platelet Count, Automated 304 10 150-450 Normal (applies to non-numeric results) [facility] ([facility]) Nucleated Red Blood Cell % 0.0 % 0-0 Normal (applies to n on-numeric results) [facility] ([facility]) Red Cell Distribution Width 14.4 % 11.5-14.5 Norm al (applies to non-numeric results) [facility] ([facility]) Mean Corpuscular HGB Conc 31.4 g/dL 32.0-36.5 Below low normal [facility]) ID Date Data Source [id number] 09/26/2019 10:31:00 AM EDT [facility] ([facility]) Name Value Range Interpretation Code Description Data Tisha rce(s) Supporting Document(s) Hemoglobin A1c 11.8 % Normal (applies to non-numeric r esults) [facility] ([facility]) REFERENCE RANGES: 4.5-5.6% NORMAL 5.7-6.4% SUGGESTS IMPAIRED GLUCOSE META BOLISM >= 6.5% ABNORMAL Estimated Average Glucose 292 mg/dL 60-110 Above high normal [facility] ([facility]) ID Date Data Source [id number] 09/26/2019 10:31:00 AM EDT [facility]) Name Value Range Interpretation Code Description Data Tisha rce(s) Supporting Document(s) Blood Urea Nitrogen 24 mg/dL 7-18 Above high normal [facility] ([facility]) Glucose, Fasting 153 mg/dL 70-100 Above high normal M [facility] ([facility]) Glomerular Filtration Rate Laboratory test result Normal (applies to non- numeric results) [facility] ([facility]) <content>Units are mL/min/1.73 m2</content>
<content></content>
<content>Chronic Kidney Disease Staging per NKF:</content>
<content></content>
<content>Stage I & II GFR >=60 Normal to Mildly Decreased</content>
<content>Stage III GFR 30- 59 Moderately Decreased</content>
<content>Stage IV GFR 15-29 Severely Decreased</content>
<content>Stage V GFR <15 Very Little GFR Left</content>
<content>ESRD GFR <15 on ELEMENT BURNER</content>
<content></content> Sodium Level 140 meq/L 136-145 Normal (applies to non-numeric res ults) [facility] ([facility]) Creatinine For GFR 0.86 mg/dL 0.55-1.30 Normal (applies to non -numeric results) [facility] ([facility]) Carbon Dioxide Level 30 meq/L 21-32 Normal (applies to non-num denita results) [facility] ([facility]) Potassium Serum 4.6 meq/L 3.5-5.1 Normal (applies to non-numeric results) [facility] ([facility]) Chloride Level 104 meq/L 98-107 Normal (applies to non-numeric r esults) [facility] ([facility]) Ast/Sgot 12 U/L 7-37 Normal (applies to non-numeric resul ts) [facility] ([facility]) Calcium Level 8.8 mg/dL 8.5-10.1 Normal (applies to non-numeric re sults) [facility] ([facility]) Alt/SGPT 18 U/L 12-78 Normal (applies to non-numeric resul ts) [facility] ([facility]) Anion Gap 6 meq/L 8-16 Below low normal [facility] ( [facility]) Total Protein 6.7 GM/DL 6.4-8.2 Normal (applies to non-numeric re sults) [facility] ([facility]) Bilirubin,Total 0.2 mg/dL 0.2-1.0 Normal (applies to non-numeric results) [facility] ([facility]) Alkaline Phosphatase 154 U/L 45-117 Above high normal [facility] ([facility]) Albumin/Globulin Ratio 0.8 1.2-2.2 Below low normal [facility] ([facility]) Albumin 2.9 GM/DL 3.2-5.2 Below low normal [facility] ( [facility]) ID Date Data Source [id number] 09/19/2019 09:35:00 AM EDT [facility] ([facility]) Name Value Range Interpretation Code Description Data Tisha rce(s) Supporting Document(s) Glucose [Mass/volume] in Capillary blood by Glucometer 248 mg/dL 70-105 Above high normal [facility] ([facility]) ID Date Data Source [id number] 09/19/2019 09:35:00 AM EDT [facility] ([facility], ) Name Value Range Interpretation Code Description Data Tisha rce(s) Supporting Document(s) Glucose [Mass/volume] in Capillary blood by Glucometer 248 mg/dL 70-105 Above high normal [facility] ([facility], ) ID Date Data Source [id number] 09/19/2019 07:10:00 AM EDT [facility] ([facility]) Name Value Range Interpretation Code Description Data Tisha rce(s) Supporting Document(s) Glucose, Fasting 355 mg/dL 70-100 Above high normal [facility] ([facility]) Blood Urea Nitrogen 16 mg/dL 7-18 Normal (applies to non-nume yogesh results) [facility] ([facility]) Creatinine For GFR 0.96 mg/dL 0.55-1.30 Normal (applies to non -numeric results) [facility]) Sodium Level 136 meq/L 136-145 Normal (applies to non-numeric res ults) [facility]) Glomerular Filtration Rate Laboratory test result Normal (applies to non- numeric results) [facility] ([facility]) <content>Units are mL/min/1.73 m2</content>
<content></content>
<content>Chronic Kidney Disease Staging per NKF:</content>
<content></content>
<content>Stage I & II GFR >=60 Normal to Mildly Decreased</content>
<content>Stage III GFR 30- 59 Moderately Decreased</content>
<content>Stage IV GFR 15-29 Severely Decreased</content>
<content>Stage V GFR <15 Very Little GFR Left</content>
<content>ESRD GFR <15 on ELEMENT BURNER</content>
<content></content> Potassium Serum 4.1 meq/L 3.5-5.1 Normal (applies to non-numeric results) [facility] ([facility]) Chloride Level 103 meq/L 98-107 Normal (applies to non-numeric r esults) [facility]) Carbon Dioxide Level 30 meq/L 21-32 Normal (applies to non-num denita results) [facility] ([facility]) Anion Gap 3 meq/L 8-16 Below low normal [facility] ( [facility]) Calcium Level 8.7 mg/dL 8.5-10.1 Normal (applies to non-numeric re sults) [facility] ([facility]) ID Date Data Source [id number] 09/19/2019 07:10:00 AM EDT [facility] ([facility]) Name Value Range Interpretation Code Description Data Tisha rce(s) Supporting Document(s) White Blood Count 11.3 10 4.0-10.0 Above high normal [facility]) Hematocrit 42.0 % 36.0-47.0 Normal (applies to non-numeric resul ts) [facility]) Red Blood Count 4.80 10 4.00-5.40 Normal (applies to non-numeric results) [facility]) Hemoglobin 13.5 g/dL 12.0-15.5 Normal (applies to non-numeric resul ts) [facility]) Mean Corpuscular Hemoglobin 28.1 pg 27.0-33.0 Norm al (applies to non-numeric results) [facility] ([facility]) Mean Corpuscular HGB Conc 32.1 g/dL 32.0-36.5 Normal (applies to non-numeric results) [facility] ([facility]) Mean Corpuscular Volume 87.5 fl 80.0-96.0 Normal ( applies to non-numeric results) [facility] ([facility]) Red Cell Distribution Width 14.1 % 11.5-14.5 Norm al (applies to non-numeric results) [facility] ([facility]) Platelet Count, Automated 259 10 150-450 Normal (applies to non-numeric results) [facility] ([facility]) Nucleated Red Blood Cell % 0.0 % 0-0 Normal (applies to n on-numeric results) [facility] ([facility]) ID Date Data Source [id number] 09/19/2019 07:10:00 AM EDT [facility], ) Name Value Range Interpretation Code Description Data Tisha rce(s) Supporting Document(s) Glucose, Fasting 355 mg/dL 70-100 Above high normal [facility] Blood Urea Nitrogen 16 mg/dL 7-18 Normal (applies to non-nume yogesh results) [facility] ([facility], ) Glomerular Filtration Rate Laboratory test result Normal (applies to non- numeric results) [facility], ) <content>Units are mL/min/1.73 m2</content>
<content></content>
<content>Chronic Kidney Disease Staging per NKF:</content>
<content></content>
<content>Stage I & II GFR >=60 Normal to Mildly Decreased</content>
<content>Stage III GFR 30- 59 Moderately Decreased</content>
<content>Stage IV GFR 15-29 Severely Decreased</content>
<content>Stage V GFR <15 Very Little GFR Left</content>
<content>ESRD GFR <15 on ELEMENT BURNER</content>
<content></content> Creatinine For GFR 0.96 mg/dL 0.55-1.30 Normal (applies to non -numeric results) [facility] ([facility], ) Sodium Level 136 meq/L 136-145 Normal (applies to non-numeric res ults) [facility] ([facility]) Carbon Dioxide Level 30 meq/L 21-32 Normal (applies to non-num denita results) [facility] ([facility]) Potassium Serum 4.1 meq/L 3.5-5.1 Normal (applies to non-numeric results) [facility] ([facility]) Chloride Level 103 meq/L 98-107 Normal (applies to non-numeric r esults) [facility] ([facility]) Calcium Level 8.7 mg/dL 8.5-10.1 Normal (applies to non-numeric re sults) [facility]) Anion Gap 3 meq/L 8-16 Below low normal [facility] ( [facility]) ID Date Data Source [id number] 09/19/2019 07:10:00 AM EDT [facility] ([facility]) Name Value Range Interpretation Code Description Data Tisha rce(s) Supporting Document(s) White Blood Count 11.3 10 4.0-10.0 Above high normal [facility]) Hemoglobin 13.5 g/dL 12.0-15.5 Normal (applies to non-numeric resul ts) [facility] ([facility]) Red Blood Count 4.80 10 4.00-5.40 Normal (applies to non-numeric results) [facility] ([facility]) Mean Corpuscular Volume 87.5 fl 80.0-96.0 Normal ( applies to non-numeric results) [facility] ([facility]) Hematocrit 42.0 % 36.0-47.0 Normal (applies to non-numeric resul ts) [facility] ([facility]) Mean Corpuscular Hemoglobin 28.1 pg 27.0-33.0 Norm al (applies to non-numeric results) [facility] ([facility]) Platelet Count, Automated 259 10 150-450 Normal (applies to non-numeric results) [facility] ([facility]) Red Cell Distribution Width 14.1 % 11.5-14.5 Norm al (applies to non-numeric results) [facility] ([facility]) Mean Corpuscular HGB Conc 32.1 g/dL 32.0-36.5 Normal (applies to non-numeric results) [facility] ([facility]) Nucleated Red Blood Cell % 0.0 % 0-0 Normal (applies to n on-numeric results) [facility]) ID Date Data Source [id number] 09/19/2019 07:09:00 AM EDT [facility] ([facility]) Name Value Range Interpretation Code Description Data Tisha rce(s) Supporting Document(s) Glucose [Mass/volume] in Capillary blood by Glucometer 386 mg/dL 70-105 Above high normal [facility] ([facility]) ID Date Data Source [id number] 09/19/2019 07:09:00 AM EDT [facility]) Name Value Range Interpretation Code Description Data Tisha rce(s) Supporting Document(s) Glucose [Mass/volume] in Capillary blood by Glucometer 386 mg/dL 70-105 Above high normal [facility] ([facility]) ID Date Data Source [id number] 08/10/2019 03:55:26 PM EDT [facility]FORMATION[facility] Name Date of Age Gend*PT [id number] Tatianna Soto 1965 54 years F ---PT Location Admission Date/Time Visit ID Attending Provider --- --- --- --- EPI ID CSN Admitting Provider [id number] ---Addended by: KAREN BAR on: 08/10/2019 03:55 PM Modules accepted: Orders Name Value Range Interpretation Code Description Data Tisha rce(s) Supporting Document(s) ID Date Data Source [id number] 07/26/2019 06:52:00 AM EDT [facility] ([facility]) Name Value Range Interpretation Code Description Data Tisha rce(s) Supporting Document(s) Glucose [Mass/volume] in Capillary blood by Glucometer 173 mg/dL 70-105 Above high normal [facility]) ID Date Data Source [id number] 07/26/2019 06:52:00 AM EDT [facility] ([facility], ) Name Value Range Interpretation Code Description Data Tisha rce(s) Supporting Document(s) Glucose [Mass/volume] in Capillary blood by Glucometer 173 mg/dL 70-105 Above high normal [facility] ([facility], ) ID Date Data Source [id number] 07/06/2019 10:03:25 AM EDT [facility] Name Value Range Interpretation Code Description Data Tisha rce(s) Supporting Document(s) &PDF [facility] XZTCOa5hMcYZLiWa17/KCDjdJMFnr5ZrRIyyCJg5PIrkFNNyY7BtrYwkKAFIWRTHUA5EAHkRKXUgRXRg [facility] [file] NpEdKiWZX7L+/vp outcomes/zciRLj6fN1Q9X5LGkOi2zKJ4dHn0MeV0wzMRX6FgwYbgusXcLks0ZyLmSc+dnds/ aYQvNwq8V17n2YUVf8XHSS7NsJNILEnt6qXL/aXK2gkv8Fffe3oL/WfjA02kJ95DtJ+DWnUxoROF/V1L vC8oaqCR8HWmEECesvWZZanInknEgBdbrDV1GiHfMr p+11UN/KS/2IzNw7NCglV4rxK7qnIJfPyIya6zwiXQiLjzdHAOT3Onrx+ic9lmd0zBjOTKVDp0yLdEag gSR1cCmdXA1QHOUjiISJRx00yWB3yDkiI5rIgOTfIMYmQj1nA9WgNNBbkBvW+R7uxPZGOnm7GOD97HI6 nEqygTHvAFSgfzn+0k1afO0RCjvRVRLyfx7Ul8rmvI xSxPVvzBR4vOAMbfAg3EuXaVpjeLSioKqP45A5zLnt8SQPvtWCVsBd3luI1vE/LOzFss9+SVAcrPpW87 Y89FluoYfPDYx1jKBFGl2/NhF2gtfSnLYQvHZ1oolhfyX6+8+BydWOTP2vHi5kwWzR2ckTv+DW2H/YU7 4m2+Ca9DOODpRpGiI8lAuVg8wf0qJKMRDIV94NOVmi v6Hl/v7gAtxbeHr3QhC+hl06ugtZeU3w6ndfXZl+xlOfMjjmcg6SneT1aN73m7c3MGAT7ykT9WEChKCw UARzfTT6ZxpxtmT05WodE3LziYbzobxKfJDNE91xdhP5yuKSJ+AJIbai6kMBy8EHWIA+siTsvpGkU3sf JQcpV4NjELW2iIK0TkrD9d1/qE2VOhxmrvQP0N1TRT t5WTVBB2bViv3pwx6P9DpLyVUh+XeTk+ZyZ0mjaZlRaqOi9u4NlvBAWML7EpfpzSN9xraB9dFZ6IcSw3 oJOZB/QBriut73pwm+I0BZ57lOHQxDZAz+Zx7XCfLDpPtthzVxUyG80aCs/KAZhU8WSsEK/Dimple/4Xkow [file] Jesus Manuel/6mf7aDjr+FVx6T/smfm58q9mg4qq/7dbA/3EJ2 [file] bas9UhQYPg9/SVxb0OKWiwKm/trust administrator/Eias2CTyK7nq6MpqUBRmR2NzjKpFaITiAiKathQ6uAvISAd7BuA 49vL5k6dG/ZoMqyXaZ0YyLy/1paUcnRb1VFk2ivzFdL/mGuxr1aG+Pn14ap0VL4gddfXPK2Ph6Fj/CgF 9O85w0PXdzJV1SV/XbeyTPX0TmufjsYvUPasgpRuer F/GeyAf+Schrader+3bT9dtpw1mu0nPMdx1ou+3NyL8826brZJpIlvPuWQPFqEITBDa3Q4KlVgvFN0sHgPGv56 [file] ICAgICAgICAgICAgICAgICAgICAgICAgICAgICAgICAgICAgICAgICAgICAgICAgICAgICAgICAgICAg ICAgICAgICAgICAgICAgICAgICAgICAgICAgICAgIC QmGWNrSD3KSXKeWBNzLPClVDAfFOYrGJEfWVYbUVZvJBDfEJQcSRTlWCRiGSDzYIAaXVYyCYJmENLpDJ LmIEPdKSTdIINeMTXrOZFyODObZAWkQINiJWQyBSTpQSApGFUyKKDzKRJtCZDvJX0QSJPdTCLkUSPtJI AgICAgICAgICAgICAgICAgICAgICAgICAgICAgICAg DDQbSZWqQQRfLLBpFDOzRWYzQIMhLTJqFEXeXXYrZELsYJYqYTSdONBeCZIrZIUdPTBuBDCsPNThNV9A ICAgICAgICAgICAgICAgICAgICAgICAgICAgICAgICAgICAgICAgICAgICAgICAgICAgICAgICAgICAg ICAgICAgICAgICAgICAgICAgICAgICAgICAgICAgIC SmOFHiSHPjWX1RQGTcTKJzLIMdFEGuVPYrVSAsFXAwZZPvJAYxIIFiKFUbZZMuXURgMWMePDMjZHMzHJ IgWJZmWIZsIDFrIQSpRYQhVFQsKQIjTIZcSDHyXYPhRKMhOOImVYAsMIGhSWEdUPHdZI0SNMMoEWBdRB AgICAgICAgICAgICAgICAgICAgICAgICAgICAgICAg ICAgICAgICAgICAgICAgICAgICAgICAgICAgICAgICAgICAgICAgICAgICAgICAgICAgICAgICAgICAg EW0KBDQdHKGsQQUdYYLgGJApMVDhDSRlEOCbABUaAKYkIFSiEBEoVQAdXSYdFTUzBUSkLABaLOTvXEBo ICAgICAgICAgICAgICAgICAgICAgICAgICAgICAgIC BqRRPmCMSbRPQqIP7HYJHlBXQyFDGoMHAvYVIcZTJmVYTcAYQqCEYpYNDqLWKiEANiZXDkZNQgCIKkZC FdJZDoKXUvYOFaTEHuKLQxFFLyXOQbVEDjOLZpMGUrLIRlLPEjYNScUCEiUTSjAWAwLHTxAD5MOBQuIG AgICAgICAgICAgICAgICAgICAgICAgICAgICAgICAg ICAgICAgICAgICAgICAgICAgICAgICAgICAgICAgICAgICAgICAgICAgICAgICAgICAgICAgICAgICAg RSOaXG5VCUMhRNZzGLOuVSMkARFrBEBrRWDvOHBvICXbSLQtOMEqKCTgOUYrYKQiHFDhQEQsVBGoOPJi ICAgICAgICAgICAgICAgICAgICAgICAgICAgICAgIC HrJVZhSXYzITMoAWQnVN9NBG79gPUbv0K6GHTlDO9iglj/Dw0VXLfeoePfkICkWL5FJoEhDG7gch2HSx WnNC8blj2TCUjVWkWuD9V3tKCzYSTaGONSLsQeY48sORxlQm14TUlgRMRpHhWwELx0Dm4RQhZoQ8nnLT EcWyK9THFmJbS3XNEaUoYzSMogPV1Rg9GxsTFdCQy+ Nf3TWE9jd3IlBFvlPZSbSR9svj6ANGwDZpFkH7W6rNSpF6L3UOkcCk5FZYCdHKIlPaQxIHNEGEnjHD8O OV7xhvA1NO0KjKOmHCDpRZVhtWZrENb7H22rrFIvPGfnVK3DGOR+Jose+Wi0UBIAdVBUoHOAmVjSkEBTY YhFeE29bzGDhPHTbCJA9CWBuKf0YMOYnR1FutdHlrR mrgxGsGDTzINBQNU2LQLcdwyHwaBPbcVwjBB83uFibLY1BOg1NVlIhOJ1rzn8NaIWsJo9PZVYrFO7CBK RtLGNnXZAlZDC4BURpKkUvROcmYSCiPRUeOAC8GKBjMGYuPH2UBjAiKOJcYGFoVqFuXVDlPDJgbc5JGJ NbYKJ5YJJ7BZMoXXEnRCOxXRboWIZeGETlRSvdBAGi QIKiEB5YNoIvYVSlNHU9QDgfAAXfPAFahh6JDXRtBEBmJsg9NePsSWIrPWDvSSpyKCIzGLA9OFHjWHDk JATrZU1DAiZnCYRvBJIfDuVpLXUxYOOuwz1EGXOdVVPjEuF4MSPbOLRgXPNfLBiiOYBdUBZ9NDouQCBp WBTjSS2ZSgBzXUKvOCu4VcGxHANsFWWphi6BWMSeBN MgBLWiJBUvLHRwYYHyVArrOXRmJVQ7UHRxHGEqLILvDU1ZRsJeRXVqFVljOwWfRDYsXLWlyp0BMSAyLM QxYJw5AIEeJECiCQEiLIuwIXJgHDOyDRpuGDEzXVTgLS9ERsMkJRByNMJrVdWcBWBnAHTteb2UZSNyMM ZdImR9TcPmBSTnTRFlOSypGICeRKJ5NJv4PSJsENYl WE4HPmCvLYXtXWivKCNbZJYoNOHhyr2MRLSpMJDbFBO3QvLtQHDlKYBsMVxkBSJvFJD9PwIjIYSdUVYu DV3JIqJcBWBzSWf1SsHrYCFlWLVeri2ZYSTtYQP8AGH6YJOgXLUcPUMxYBdeNRZzBRpyCtF2PUBrHVLr MW2VOqGxHZFvLUMcMRKoMFIbEAWtmq2OAPTqZBI8By ivIPKzMPDiNEUcQFzsLDSqSVy8FKFxUXQyGNMoKN6CCeZiHYyyYNBHTjy8XTqvK3k8SLTePQ5OG7Mak3 UdFajeANUEPXpjRT7cwyHxMUIgYb3GI8qNElhoACihCONpSTseQPL8I0SnQul9OTd9LqceQublBiC7YM 2bLIHoOAZtE7BsNXNuGtL8M5VgREF3HMQ4IESaL8Q1 SDj6CaOmLK4NIm7LPaT9HMN2kMCiYg4HFVScADTOVuPsFT0BEJh= ID Date Data Source [id number] 07/05/2019 04:39:00 PM EDT [facility] ([facility]) Name Value Range Interpretation Code Description Data Tisha rce(s) Supporting Document(s) Osmolality of Serum or Plasma 294 MOSM/KG 275-295 No rmal (applies to non-numeric results) [facility] ([facility]) <content>note:<nlbl:demographic_changed> </content>
<content></content> Osmolality of Urine 521 MOSM/KG 500-800 Normal (applies to no n-numeric results) [facility] ([facility]) ID Date Data Source [id number] 07/05/2019 04:39:00 PM EDT [facility] Name Value Range Interpretation Code Description Data Tisha rce(s) Supporting Document(s) Alkaline Phosphatase 148 U/L 45-117 Above high normal [facility] ([facility]) Ast/Sgot 11 U/L 7-37 Normal (applies to non-numeric resul ts) [facility] ([facility]) Alt/SGPT 15 U/L 12-78 Normal (applies to non-numeric resul ts) [facility] ([facility]) Albumin 3.0 GM/DL 3.2-5.2 Below low normal [facility] Bilirubin,Direct Laboratory test result 0.0-0.2 Normal ( applies to non-numeric results) [facility] ([facility]) Bilirubin,Total 0.1 mg/dL 0.2-1.0 Below low normal [facility] ([facility]) Total Protein 6.9 GM/DL 6.4-8.2 Normal (applies to non-numeric re sults) [facility] ([facility]) Albumin/Globulin Ratio 0.77 1.00-1.93 Below low normal [facility] ([facility]) ID Date Data Source [id number] 07/05/2019 04:39:00 PM EDT [facility] ([facility]) Name Value Range Interpretation Code Description Data Tisha rce(s) Supporting Document(s) C reactive protein [Mass/volume] in Serum or Plasma by High sensitivity method 1.76 mg/dL 0.00-0.30 Above high normal [facility] ([facility]) <content>note:<nlbl:demographic_changed> </content>
<content></content> Lactate [Mass/volume] in Serum or Plasma 1.9 mmol/L 0.4-2.0 Normal (applies to non-numeric results) [facility] ([facility]) <content>note:<nlbl:demographic_changed> </content>
<content>Y/N query for Sepsis Lactate Rule: Y</content>
<content></content> ID Date Data Source [id number] 07/05/2019 04:39:00 PM EDT [facility] Name Value Range Interpretation Code Description Data Tisha rce(s) Supporting Document(s) Hemoglobin 15.3 g/dL 12.0-15.5 Normal (applies to non-numeric resul ts) [facility] ([facility]) White Blood Count 12.6 10 4.0-10.0 Above high normal [facility] Red Blood Count 5.26 10 4.00-5.40 Normal (applies to non-numeric results) [facility] ([facility]) Hematocrit 46.6 % 36.0-47.0 Normal (applies to non-numeric resul ts) [facility] ([facility]) Mean Corpuscular Hemoglobin 29.1 pg 27.0-33.0 Norm al (applies to non-numeric results) [facility] ([facility]) Mean Corpuscular Volume 88.6 fl 80.0-96.0 Normal ( applies to non-numeric results) [facility] ([facility]) Red Cell Distribution Width 13.5 % 11.5-14.5 Norm al (applies to non-numeric results) [facility] ([facility]) Neutrophils % 69.5 % 36.0-66.0 Above high normal [facility] ([facility]) Mean Corpuscular HGB Conc 32.8 g/dL 32.0-36.5 Normal (applies to non-numeric results) [facility] ([facility]) Platelet Count, Automated 290 10 150-450 Normal (applies to non-numeric results) [facility] ([facility]) Lymph % 20.1 % 24.0-44.0 Below low normal [facility] ( [facility]) Eos % 3.9 % 0.0-3.0 Above high normal [facility] ([facility]) Rock % 5.3 % 0.0-5.0 Above high normal [facility] ([facility]) Nucleated Red Blood Cell % 0.0 % 0-0 Normal (applies to n on-numeric results) [facility] ([facility]) Neutrophils # 8.8 10 1.5-8.5 Above high normal [facility] ([facility]) Baso % 0.6 % 0.0-1.0 Normal (applies to non-numeric resul ts) [facility] ([facility]) Immature Granulocyte % 0.6 % 0-3.0 Normal (applies to non-n umeric results) [facility] ([facility]) Rock # 0.7 10 0.0-0.8 Normal (applies to non-numeric resul ts) [facility] ([facility]) Eos # 0.5 10 0.0-0.5 Normal (applies to non-numeric resul ts) [facility] [facility] Lymph # 2.5 10 1.5-5.0 Normal (applies to non-numeric resul ts) [facility]) Baso # 0.1 10 0.0-0.2 Normal (applies to non-numeric resul ts) [facility]) ID Date Data Source [id number] 07/05/2019 04:39:00 PM EDT [facility] ([facility]) Name Value Range Interpretation Code Description Data Tisha rce(s) Supporting Document(s) Glomerular Filtration Rate Laboratory test result Normal (applies to non- numeric results) [facility] ([facility]) <content>Units are mL/min/1.73 m2</content>
<content></content>
<content>Chronic Kidney Disease Staging per NKF:</content>
<content></content>
<content>Stage I & II GFR >=60 Normal to Mildly Decreased</content>
<content>Stage III GFR 30- 59 Moderately Decreased</content>
<content>Stage IV GFR 15-29 Severely Decreased</content>
<content>Stage V GFR <15 Very Little GFR Left</content>
<content>ESRD GFR <15 on ELEMENT BURNER</content>
<content></content> Glucose, Fasting 119 mg/dL 70-100 Above high normal [facility] Creatinine For GFR 0.97 mg/dL 0.55-1.30 Normal (applies to non -numeric results) [facility] ([facility]) Blood Urea Nitrogen 13 mg/dL 7-18 Normal (applies to non-nume yogesh results) [facility] ([facility]) Potassium Serum 4.8 meq/L 3.5-5.1 Normal (applies to non-numeric results) [facility] ([facility]) Sodium Level 139 meq/L 136-145 Normal (applies to non-numeric res ults) [facility] ([facility]) Chloride Level 106 meq/L 98-107 Normal (applies to non-numeric r esults) [facility] ([facility]) Calcium Level 9.1 mg/dL 8.5-10.1 Normal (applies to non-numeric re sults) [facility] ([facility]) Anion Gap 4 meq/L 8-16 Below low normal [facility] ( [facility]) Carbon Dioxide Level 29 meq/L 21-32 Normal (applies to non-num denita results) [facility] ([facility]) ID Date Data Source [id number] 06/17/2019 12:47:00 PM EST [facility] ([facility]) Name Value Range Interpretation Code Description Data Tisha rce(s) Supporting Document(s) Glucose, Fasting 825 mg/dL 70-100 Above upper panic limits [facility] ([facility]) Creatinine For GFR 1.15 mg/dL 0.55-1.30 Normal (applies to non -numeric results) [facility] ([facility]) Glomerular Filtration Rate 52.8 Normal (applies to n on-numeric results) [facility] ([facility]) <content>Units are mL/min/1.73 m2</content>
<content></content>
<content>Chronic Kidney Disease Staging per NKF:</content>
<content></content>
<content>Stage I & II GFR >=60 Normal to Mildly Decreased</content>
<content>Stage III GFR 30- 59 Moderately Decreased</content>
<content>Stage IV GFR 15-29 Severely Decreased</content>
<content>Stage V GFR <15 Very Little GFR Left</content>
<content>ESRD GFR <15 on ELEMENT BURNER</content>
<content></content> Blood Urea Nitrogen 22 mg/dL 7-18 Above high normal [facility] ([facility]) Sodium Level 126 meq/L 136-145 Below low normal [facility] ([facility]) Potassium Serum 5.0 meq/L 3.5-5.1 Normal (applies to non-numeric results) [facility] ([facility]) Testing was performed on a SLIGHTLY hemo lyzed specimen. Suggest recollection of specimen for more accurate test results. Chloride Level 92 meq/L 98-107 Below low normal [facility] ([facility]) Anion Gap 10 meq/L 8-16 Normal (applies to non-numeric resul ts) [facility] ([facility]) Carbon Dioxide Level 24 meq/L 21-32 Normal (applies to non-num denita results) [facility] ([facility]) Calcium Level 8.9 mg/dL 8.5-10.1 Normal (applies to non-numeric re sults) [facility] ([facility]) ID Date Data Source [id number] 06/17/2019 12:47:00 PM EST [facility] ([facility]) Name Value Range Interpretation Code Description Data Tisha rce(s) Supporting Document(s) Osmolality of Serum or Plasma 313 MOSM/KG 275-295 Above high nellie l [facility] ([facility]) <content>note:<nlbl:demographic_changed> </content>
<content></content> ID Date Data Source [id number] 06/17/2019 12:46:00 PM EST [facility] ([facility]) Name Value Range Interpretation Code Description Data Tisha rce(s) Supporting Document(s) Venous PH 7.389 units 7.330-7.430 Normal (applies to non-numeric res ults) [facility]) Venous Total Co2 24.6 meq/L 24.0-28.0 Normal (applies to non-numeric results) [facility] ([facility]) Venous Partial Pressure Co2 39.6 mmHg 38.0-50.0 Norm al (applies to non-numeric results) [facility]) Venous Partial Pressure O2 142.2 mmHg 30.0-50.0 Above high normal [facility] ([facility]) Venous Base Excess -1.4 Normal (applies to non-numer ic results) [facility] ([facility]) Venous Hco3 23.4 meq/L 23.0-27.0 Normal (applies to non-numeric resu lts) [facility] ([facility]) Venous Standard Hco3 23.4 meq/L Normal (applies to non-num denita results) [facility] ([facility]) Venous O2 Saturation 98.4 % 60.0-80.0 Above high normal [facility]) ID Date Data Source [id number] 06/17/2019 12:46:00 PM EST [facility] ([facility]) Name Value Range Interpretation Code Description Data Tisha rce(s) Supporting Document(s) White Blood Count 9.9 10 4.0-10.0 Normal (applies to non-numeri c results) [facility] ([facility]) Mean Corpuscular Volume 87.1 fl 80.0-96.0 Normal ( applies to non-numeric results) [facility] ([facility]) Red Blood Count 5.33 10 4.00-5.40 Normal (applies to non-numeric results) [facility] ([facility]) Hemoglobin 14.9 g/dL 12.0-15.5 Normal (applies to non-numeric resul ts) [facility] ([facility]) Hematocrit 46.4 % 36.0-47.0 Normal (applies to non-numeric resul ts) [facility] ([facility]) Red Cell Distribution Width 13.6 % 11.5-14.5 Norm al (applies to non-numeric results) [facility]) Mean Corpuscular HGB Conc 32.1 g/dL 32.0-36.5 Normal (applies to non-numeric results) [facility] ([facility]) Mean Corpuscular Hemoglobin 28.0 pg 27.0-33.0 Norm al (applies to non-numeric results) [facility] ([facility]) Neutrophils % 78.7 % 36.0-66.0 Above high normal [facility] ([facility]) Lymph % 14.8 % 24.0-44.0 Below low normal [facility] ( [facility]) Platelet Count, Automated 357 10 150-450 Normal (applies to non-numeric results) [facility] ([facility]) Rock % 4.1 % 0.0-5.0 Normal (applies to non-numeric resul ts) [facility] ([facility]) Immature Granulocyte % 0.5 % 0-3.0 Normal (applies to non-n umeric results) [facility] ([facility]) Baso % 0.6 % 0.0-1.0 Normal (applies to non-numeric resul ts) [facility] ([facility]) Eos % 1.3 % 0.0-3.0 Normal (applies to non-numeric resul ts) [facility] ([facility]) Nucleated Red Blood Cell % 0.0 % 0-0 Normal (applies to n on-numeric results) [facility] ([facility]) Neutrophils # 7.8 10 1.5-8.5 Normal (applies to non-numeric re sults) [facility] ([facility]) Lymph # 1.5 10 1.5-5.0 Normal (applies to non-numeric resul ts) [facility] ([facility]) Rock # 0.4 10 0.0-0.8 Normal (applies to non-numeric resul ts) [facility] ([facility]) Eos # 0.1 10 0.0-0.5 Normal (applies to non-numeric resul ts) [facility] ([facility]) Baso # 0.1 10 0.0-0.2 Normal (applies to non-numeric resul ts) [facility] ([facility]) ID Date Data Source [id number] 06/17/2019 12:46:00 PM EST [facility] ([facility]) Name Value Range Interpretation Code Description Data Tisha rce(s) Supporting Document(s) Lactate [Mass/volume] in Serum or Plasma 2.5 mmol/L 0.4-2.0 Above upper panic limits [facility] ([facility]) <content>note:<nlbl:demographic_changed> </content>
<content>Y/N query for Sepsis Lactate Rule: Y</content>
<content></content> ID Date Data Source [id number] 06/17/2019 12:46:00 PM EST [facility] ([facility]) Name Value Range Interpretation Code Description Data Tisha rce(s) Supporting Document(s) Estimated Average Glucose 249 mg/dL 60-110 Above high normal [facility] ([facility]) Hemoglobin A1c 10.3 % Normal (applies to non-numeric r esults) [facility] ([facility]) REFERENCE RANGES: 4.5-5.6% NORMAL 5.7-6.4% SUGGESTS IMPAIRED GLUCOSE META BOLISM >= 6.5% ABNORMAL ID Date Data Source [id number] 06/14/2019 07:06:00 AM EST [facility] ([facility]) Name Value Range Interpretation Code Description Data Tisha rce(s) Supporting Document(s) Malb Urine Siemens 51.4 mg/L Normal (applies to non-numer ic results) [facility] ([facility]) Creatinine, Urine 54.9 mg/dL Normal (applies to non-numeri c results) [facility] ([facility]) Kevyn/Creat Ratio 93.6 MCG/MG 0.0-30.0 Above high normal M [facility] ([facility]) THE CIT[employer] STATES THAT MICROALBUMINURIA IS PRESENT IF THE MICROALBUMIN/CREATININE RATIO EXCEEDS 30 MCG/MG. THE THRESHOLD FOR CLINICAL ALBUMINURIA IS REACHED AT 300 MCG/MG. THE CLASSIFICATION OF A PATIENT SHOULD BE BASED UPON AT LEAST 2 OF 3 ABNORMAL RESULTS ON SPECIMENS COLLECTED WITHIN A 3 TO 6 MONTH TIME FRAME. ID Date Data Source [id number] 06/14/2019 07:02:00 AM EST [facility] ([facility]) Name Value Range Interpretation Code Description Data Tisha rce(s) Supporting Document(s) Hemoglobin A1c 10.4 % Normal (applies to non-numeric r esults) [facility] ([facility]) REFERENCE RANGES: 4.5-5.6% NORMAL 5.7-6.4% SUGGESTS IMPAIRED GLUCOSE META BOLISM >= 6.5% ABNORMAL Estimated Average Glucose 252 mg/dL 60-110 Above high normal [facility] ([facility]) ID Date Data Source [id number] 06/14/2019 07:02:00 AM EST [facility] ([facility]) Name Value Range Interpretation Code Description Data Tisha rce(s) Supporting Document(s) Cholesterol Level 218 mg/dL Above high normal [facility] Triglycerides Level 384 mg/dL Above high normal [facility] HDL Cholesterol 34 mg/dL Below low normal [facility] ([facility]) LDL Cholesterol 107 mg/dL Above high normal [facility] ([facility]) Non-HDL-C 184 mg/dL Normal (applies to non-numeric resul ts) [facility] ([facility]) Cholesterol Risk Ratio 6.411 Above high normal [facility] ([facility]) ID Date Data Source [id number] 06/14/2019 07:02:00 AM EST [facility] ([facility]) Name Value Range Interpretation Code Description Data Tisha rce(s) Supporting Document(s) Creatinine For GFR 1.23 mg/dL 0.55-1.30 Normal (applies to non -numeric results) [facility] ([facility]) Glucose, Fasting 265 mg/dL 70-100 Above high normal [facility] ([facility]) Blood Urea Nitrogen 23 mg/dL 7-18 Above high normal [facility]) Sodium Level 137 meq/L 136-145 Normal (applies to non-numeric res ults) [facility] ([facility]) Potassium Serum 4.4 meq/L 3.5-5.1 Normal (applies to non-numeric results) [facility] Glomerular Filtration Rate 48.8 Below low normal [facility] ([facility]) <content>Units are mL/min/1.73 m2</content>
<content></content>
<content>Chronic Kidney Disease Staging per NKF:</content>
<content></content>
<content>Stage I & II GFR >=60 Normal to Mildly Decreased</content>
<content>Stage III GFR 30- 59 Moderately Decreased</content>
<content>Stage IV GFR 15-29 Severely Decreased</content>
<content>Stage V GFR <15 Very Little GFR Left</content>
<content>ESRD GFR <15 on ELEMENT BURNER</content>
<content></content> Anion Gap 4 meq/L 8-16 Below low normal [facility] ( [facility]) Chloride Level 104 meq/L 98-107 Normal (applies to non-numeric r esults) [facility] ([facility]) Carbon Dioxide Level 29 meq/L 21-32 Normal (applies to non-num denita results) [facility] ([facility]) Alkaline Phosphatase 158 U/L 45-117 Above high normal [facility] ([facility]) Calcium Level 9.4 mg/dL 8.5-10.1 Normal (applies to non-numeric re sults) [facility] ([facility]) Ast/Sgot 10 U/L 7-37 Normal (applies to non-numeric resul ts) [facility] ([facility]) Alt/SGPT 13 U/L 12-78 Normal (applies to non-numeric resul ts) [facility] ([facility]) Bilirubin,Total 0.2 mg/dL 0.2-1.0 Normal (applies to non-numeric results) [facility] ([facility]) Albumin 3.2 GM/DL 3.2-5.2 Normal (applies to non-numeric resul ts) [facility] ([facility]) Total Protein 7.1 GM/DL 6.4-8.2 Normal (applies to non-numeric re sults) [facility] ([facility]) Albumin/Globulin Ratio 0.82 1.00-1.93 Below low normal [facility]) ID Date Data Source [id number] 06/14/2019 07:02:00 AM EST [facility] ([facility]) Name Value Range Interpretation Code Description Data Tisha rce(s) Supporting Document(s) Red Blood Count 5.29 10 4.00-5.40 Normal (applies to non-numeric results) [facility] ([facility]) White Blood Count 10.4 10 4.0-10.0 Above high normal [facility] ([facility]) Hematocrit 46.0 % 36.0-47.0 Normal (applies to non-numeric resul ts) [facility] ([facility]) Hemoglobin 14.7 g/dL 12.0-15.5 Normal (applies to non-numeric resul ts) [facility] ([facility]) Mean Corpuscular Hemoglobin 27.8 pg 27.0-33.0 Norm al (applies to non-numeric results) [facility] ([facility]) Mean Corpuscular Volume 87.0 fl 80.0-96.0 Normal ( applies to non-numeric results) [facility] ([facility]) Platelet Count, Automated 358 10 150-450 Normal (applies to non-numeric results) [facility] ([facility]) Mean Corpuscular HGB Conc 32.0 g/dL 32.0-36.5 Normal (applies to non-numeric results) [facility] ([facility]) Red Cell Distribution Width 13.3 % 11.5-14.5 Norm al (applies to non-numeric results) [facility] ([facility]) Rock % 6.6 % 0.0-5.0 Above high normal [facility] ([facility]) Lymph % 26.2 % 24.0-44.0 Normal (applies to non-numeric resul ts) [facility] ([facility]) Neutrophils % 62.4 % 36.0-66.0 Normal (applies to non-numeric re sults) [facility] ([facility]) Eos % 3.3 % 0.0-3.0 Above high normal [facility] ([facility]) Baso % 0.9 % 0.0-1.0 Normal (applies to non-numeric resul ts) [facility] ([facility]) Immature Granulocyte % 0.6 % 0-3.0 Normal (applies to non-n umeric results) [facility] ([facility]) Lymph # 2.7 10 1.5-5.0 Normal (applies to non-numeric resul ts) [facility] ([facility]) Rock # 0.7 10 0.0-0.8 Normal (applies to non-numeric resul ts) [facility] ([facility]) Nucleated Red Blood Cell % 0.0 % 0-0 Normal (applies to n on-numeric results) [facility] ([facility]) Neutrophils # 6.5 10 1.5-8.5 Normal (applies to non-numeric re sults) [facility] ([facility]) Eos # 0.3 10 0.0-0.5 Normal (applies to non-numeric resul ts) [facility] ([facility]) Baso # 0.1 10 0.0-0.2 Normal (applies to non-numeric resul ts) [facility] ([facility]) ID Date Data Source [id number] 05/17/2019 10:02:00 AM EST [facility] ([facility]) Name Value Range Interpretation Code Description Data Tisha rce(s) Supporting Document(s) Glucose [Mass/volume] in Capillary blood by Glucometer 240 mg/dL 70-105 Above high normal [facility] ([facility]) ID Date Data Source [id number] 05/17/2019 10:02:00 AM EST [facility] ([facility], ) Name Value Range Interpretation Code Description Data Tisha rce(s) Supporting Document(s) Glucose [Mass/volume] in Capillary blood by Glucometer 240 mg/dL 70-105 Above high normal [facility] ([facility]) ID Date Data Source [id number] 05/17/2019 07:30:00 AM EST [facility] ([facility]) Name Value Range Interpretation Code Description Data Tisha rce(s) Supporting Document(s) Glucose [Mass/volume] in Capillary blood by Glucometer 344 mg/dL 70-105 Above high normal [facility] ([facility]) ID Date Data Source [id number] 05/17/2019 07:30:00 AM EST [facility] ([facility], ) Name Value Range Interpretation Code Description Data Tisha rce(s) Supporting Document(s) Glucose [Mass/volume] in Capillary blood by Glucometer 344 mg/dL 70-105 Above high normal [facility] ([facility], ) ID Date Data Source [id number] 05/17/2019 07:20:00 AM EST [facility] ([facility]) Name Value Range Interpretation Code Description Data Tisha rce(s) Supporting Document(s) Creatinine For GFR 0.97 mg/dL 0.55-1.30 Normal (applies to non -numeric results) [facility] Blood Urea Nitrogen 22 mg/dL 7-18 Above high normal [facility] ([facility]) Glucose, Fasting 402 mg/dL 70-100 Above upper panic limits [facility] ([facility]) Glomerular Filtration Rate Laboratory test result Normal (applies to non- numeric results) [facility] ([facility]) <content>Units are mL/min/1.73 m2</content>
<content></content>
<content>Chronic Kidney Disease Staging per NKF:</content>
<content></content>
<content>Stage I & II GFR >=60 Normal to Mildly Decreased</content>
<content>Stage III GFR 30- 59 Moderately Decreased</content>
<content>Stage IV GFR 15-29 Severely Decreased</content>
<content>Stage V GFR <15 Very Little GFR Left</content>
<content>ESRD GFR <15 on ELEMENT BURNER</content>
<content></content> Potassium Serum 4.8 meq/L 3.5-5.1 Normal (applies to non-numeric results) [facility] ([facility]) Sodium Level 136 meq/L 136-145 Normal (applies to non-numeric res ults) [facility] Carbon Dioxide Level 29 meq/L 21-32 Normal (applies to non-num denita results) [facility] ([facility]) Chloride Level 101 meq/L 98-107 Normal (applies to non-numeric r esults) [facility] ([facility]) Calcium Level 8.7 mg/dL 8.5-10.1 Normal (applies to non-numeric re sults) [facility] ([facility]) Anion Gap 6 meq/L 8-16 Below low normal [facility] ( [facility]) ID Date Data Source [id number] 05/17/2019 07:20:00 AM EST [facility]) Name Value Range Interpretation Code Description Data Tisha rce(s) Supporting Document(s) Red Blood Count 5.26 10 4.00-5.40 Normal (applies to non-numeric results) [facility]) Hemoglobin 14.7 g/dL 12.0-15.5 Normal (applies to non-numeric resul ts) [facility] ([facility]) White Blood Count 9.7 10 4.0-10.0 Normal (applies to non-numeri c results) [facility] ([facility]) Mean Corpuscular Volume 87.5 fl 80.0-96.0 Normal ( applies to non-numeric results) [facility]) Hematocrit 46.0 % 36.0-47.0 Normal (applies to non-numeric resul ts) [facility] ([facility]) Mean Corpuscular HGB Conc 32.0 g/dL 32.0-36.5 Normal (applies to non-numeric results) [facility] ([facility]) Mean Corpuscular Hemoglobin 27.9 pg 27.0-33.0 Norm al (applies to non-numeric results) [facility] ([facility]) Nucleated Red Blood Cell % 0.0 % 0-0 Normal (applies to n on-numeric results) [facility] ([facility]) Platelet Count, Automated 268 10 150-450 Normal (applies to non-numeric results) [facility] ([facility]) Red Cell Distribution Width 13.1 % 11.5-14.5 Norm al (applies to non-numeric results) [facility] ([facility]) ID Date Data Source [id number] 05/17/2019 07:20:00 AM EST [facility] ([facility], ) Name Value Range Interpretation Code Description Data Tisha rce(s) Supporting Document(s) Blood Urea Nitrogen 22 mg/dL 7-18 Above high normal [facility] Creatinine For GFR 0.97 mg/dL 0.55-1.30 Normal (applies to non -numeric results) [facility] ([facility], ) Glucose, Fasting 402 mg/dL 70-100 Above upper panic limits [facility] ) Glomerular Filtration Rate Laboratory test result Normal (applies to non- numeric results) [facility] ([facility], ) <content>Units are mL/min/1.73 m2</content>
<content></content>
<content>Chronic Kidney Disease Staging per NKF:</content>
<content></content>
<content>Stage I & II GFR >=60 Normal to Mildly Decreased</content>
<content>Stage III GFR 30- 59 Moderately Decreased</content>
<content>Stage IV GFR 15-29 Severely Decreased</content>
<content>Stage V GFR <15 Very Little GFR Left</content>
<content>ESRD GFR <15 on ELEMENT BURNER</content>
<content></content> Sodium Level 136 meq/L 136-145 Normal (applies to non-numeric res ults) [facility]) Potassium Serum 4.8 meq/L 3.5-5.1 Normal (applies to non-numeric results) [facility]) Chloride Level 101 meq/L 98-107 Normal (applies to non-numeric r esults) [facility]) Anion Gap 6 meq/L 8-16 Below low normal [facility] ( [facility]) Carbon Dioxide Level 29 meq/L 21-32 Normal (applies to non-num denita results) [facility]) Calcium Level 8.7 mg/dL 8.5-10.1 Normal (applies to non-numeric re sults) [facility]) ID Date Data Source [id number] 05/17/2019 07:20:00 AM EST [facility]) Name Value Range Interpretation Code Description Data Tisha rce(s) Supporting Document(s) White Blood Count 9.7 10 4.0-10.0 Normal (applies to non-numeri c results) [facility]) Hemoglobin 14.7 g/dL 12.0-15.5 Normal (applies to non-numeric resul ts) [facility]) Red Blood Count 5.26 10 4.00-5.40 Normal (applies to non-numeric results) [facility]) Hematocrit 46.0 % 36.0-47.0 Normal (applies to non-numeric resul ts) [facility]) Mean Corpuscular Hemoglobin 27.9 pg 27.0-33.0 Norm al (applies to non-numeric results) [facility]) Mean Corpuscular Volume 87.5 fl 80.0-96.0 Normal ( applies to non-numeric results) [facility] ([facility], ) Mean Corpuscular HGB Conc 32.0 g/dL 32.0-36.5 Normal (applies to non-numeric results) [facility] ([facility]) Platelet Count, Automated 268 10 150-450 Normal (applies to non-numeric results) [facility] ([facility]) Red Cell Distribution Width 13.1 % 11.5-14.5 Norm al (applies to non-numeric results) [facility] ([facility]) Nucleated Red Blood Cell % 0.0 % 0-0 Normal (applies to n on-numeric results) [facility]) ID Date Data Source [id number] 03/21/2019 12:06:00 PM EST [facility] Name Value Range Interpretation Code Description Data Tisha rce(s) Supporting Document(s) Glucose [Mass/volume] in Capillary blood by Glucometer 444 mg/dL 70-105 Above high normal [facility]) ID Date Data Source [id number] 03/21/2019 10:07:00 AM EST [facility] ([facility]) Name Value Range Interpretation Code Description Data Tisha rce(s) Supporting Document(s) Venous PH 7.377 units 7.330-7.430 Normal (applies to non-numeric res ults) [facility] ([facility]) Venous Total Co2 25.0 meq/L 24.0-28.0 Normal (applies to non-numeric results) [facility] ([facility]) Venous Partial Pressure O2 78.8 mmHg 30.0-50.0 Above high normal [facility] ([facility]) Venous Partial Pressure Co2 41.3 mmHg 38.0-50.0 Norm al (applies to non-numeric results) [facility] ([facility]) Venous Base Excess -1.4 Normal (applies to non-numer ic results) [facility] ([facility]) Venous Hco3 23.7 meq/L 23.0-27.0 Normal (applies to non-numeric resu lts) [facility] ([facility]) Venous Standard Hco3 23.3 meq/L Normal (applies to non-num denita results) [facility] ([facility]) Venous O2 Saturation 96.1 % 60.0-80.0 Above high normal [facility] ([facility]) ID Date Data Source [id number] 03/21/2019 10:07:00 AM EST [facility] ([facility]) Name Value Range Interpretation Code Description Data Tisha rce(s) Supporting Document(s) Appearance, Urine RFX Laboratory test result Nor mal (applies to non-numeric results) [facility]) PH,Urine RFX 6.0 units 5.0-9.0 Normal (applies to non-numeric res ults) [facility]) Specific [place] Ur Auto RFX 1.025 1.002-1.035 Nor mal (applies to non-numeric results) [facility] ([facility]) Color, Urine RFX Laboratory test result Normal ( applies to non-numeric results) [facility] ([facility]) Glucose, Urine (Ua) Auto RFX Laboratory test result Above high normal [facility] ([facility]) Ketone, Urine Auto RFX Laboratory test result No rmal (applies to non-numeric results) [facility] ([facility]) Protein, Urine Auto RFX Laboratory test result N ormal (applies to non-numeric results) [facility] ([facility]) Nitrite, Urine Auto RFX Laboratory test result N ormal (applies to non-numeric results) [facility] ([facility]) Bilirubin, Urine Auto RFX Laboratory test result Normal (applies to non- numeric results) [facility] ([facility]) Urobilinogen, Urine Auto RFX 0.2 mg/dL 0.0-2.0 Nor mal (applies to non-numeric results) [facility] ([facility]) Blood, Urine Blood RFX Laboratory test result No rmal (applies to non-numeric results) [facility] ([facility]) WBC, Urine Auto RFX 2 /HPF 0-3 Normal (applies to non-nume yogesh results) [facility] ([facility]) Leukocyte Esterase Ur Auto RFX Laboratory test result Abov e high normal [facility] ([facility]) Bacteria, Urine Auto RFX Laboratory test result Normal (applies to non-numeric results) [facility] ([facility]) RBC, Urine Auto RFX 2 /HPF 0-3 Normal (applies to non-nume yogesh results) [facility] ([facility]) Squam Epithelial Cell Ur Aurfx 0 /HPF 0-6 N ormal (applies to non-numeric results) [facility] ([facility]) Hyaline Cast, Urine Auto RFX 0 /LPF 0-1 Normal (appl ies to non-numeric results) [facility] ([facility]) ID Date Data Source [id number] 03/21/2019 09:48:00 AM EST [facility] ([facility]) Name Value Range Interpretation Code Description Data Tisha rce(s) Supporting Document(s) Phosphate [Moles/volume] in Serum or Plasma 5.2 mg/dL 2.5-4.9 Above high normal [facility] ([facility]) <content>note:<nlbl:demographic_changed> </content>
<content></content> Acetone [Mass/volume] in Serum or Plasma 2.47 mg/dL Normal (applies to non- numeric results) [facility] ([facility]) <content>note:<nlbl:demographic_changed> </content>
<content></content> Lipase [Enzymatic activity/volume] in Serum or Plasma 294 U/L 73-393 Normal (applies to non-numeric results) [facility] ([facility]) <content>note:<nlbl:demographic_changed> </content>
<content></content> Magnesium [Mass/volume] in Serum or Plasma 2.2 mg/dL 1.8-2 .4 Normal (applies to non-numeric results) [facility] ([facility]) <content>note:<nlbl:demographic_changed> </content>
<content></content> Osmolality of Serum or Plasma 322 MOSM/KG 275-295 Above high nellie l [facility] ([facility]) <content>note:<nlbl:demographic_changed> </content>
<content></content> ID Date Data Source [id number] 03/21/2019 09:48:00 AM EST [facility] ([facility]) Name Value Range Interpretation Code Description Data Tisha rce(s) Supporting Document(s) Blood Urea Nitrogen 28 mg/dL 7-18 Above high normal [facility] ([facility]) Creatinine For GFR 1.19 mg/dL 0.55-1.30 Normal (applies to non -numeric results) [facility] ([facility]) Glucose, Fasting 909 mg/dL 70-100 Above upper panic limits [facility] ([facility]) Potassium Serum 6.1 meq/L 3.5-5.1 Above upper panic limits [facility] ([facility]) Glomerular Filtration Rate 50.9 Below low normal [facility] ([facility]) <content>Units are mL/min/1.73 m2</content>
<content></content>
<content>Chronic Kidney Disease Staging per NKF:</content>
<content></content>
<content>Stage I & II GFR >=60 Normal to Mildly Decreased</content>
<content>Stage III GFR 30- 59 Moderately Decreased</content>
<content>Stage IV GFR 15-29 Severely Decreased</content>
<content>Stage V GFR <15 Very Little GFR Left</content>
<content>ESRD GFR <15 on ELEMENT BURNER</content>
<content></content> Sodium Level 123 meq/L 136-145 Below low normal [facility] ([facility]) Anion Gap 10 meq/L 8-16 Normal (applies to non-numeric resul ts) [facility] ([facility]) Carbon Dioxide Level 26 meq/L 21-32 Normal (applies to non-num denita results) [facility] ([facility]) Chloride Level 87 meq/L 98-107 Below low normal [facility] ([facility]) Calcium Level 9.4 mg/dL 8.5-10.1 Normal (applies to non-numeric re sults) [facility] ([facility]) ID Date Data Source [id number] 03/21/2019 09:48:00 AM EST [facility] ([facility]) Name Value Range Interpretation Code Description Data Tisha rce(s) Supporting Document(s) Alt/SGPT 18 U/L 12-78 Normal (applies to non-numeric resul ts) [facility] ([facility]) Ast/Sgot 22 U/L 7-37 Normal (applies to non-numeric resul ts) [facility] ([facility]) Bilirubin,Total 0.4 mg/dL 0.2-1.0 Normal (applies to non-numeric results) [facility] ([facility]) Alkaline Phosphatase 218 U/L 45-117 Above high normal [facility] ([facility]) Bilirubin,Direct Laboratory test result 0.0-0.2 Normal ( applies to non-numeric results) [facility] ([facility]) Albumin 3.3 GM/DL 3.2-5.2 Normal (applies to non-numeric resul ts) [facility] ([facility]) Albumin/Globulin Ratio 0.75 1.00-1.93 Below low normal [facility] ([facility]) Total Protein 7.7 GM/DL 6.4-8.2 Normal (applies to non-numeric re sults) [facility] ([facility]) ID Date Data Source [id number] 03/21/2019 09:48:00 AM EST [facility] ([facility]) Name Value Range Interpretation Code Description Data Tisha rce(s) Supporting Document(s) White Blood Count 8.4 10 4.0-10.0 Normal (applies to non-numeri c results) [facility] ([facility]) Hemoglobin 15.7 g/dL 12.0-15.5 Above high normal [facility] ([facility]) Red Blood Count 5.37 10 4.00-5.40 Normal (applies to non-numeric results) [facility] ([facility]) Mean Corpuscular Volume 84.0 fl 80.0-96.0 Normal ( applies to non-numeric results) [facility] ([facility]) Mean Corpuscular Hemoglobin 29.2 pg 27.0-33.0 Norm al (applies to non-numeric results) [facility] ([facility]) Hematocrit 45.1 % 36.0-47.0 Normal (applies to non-numeric resul ts) [facility] ([facility]) Mean Corpuscular HGB Conc 34.8 g/dL 32.0-36.5 Normal (applies to non-numeric results) [facility] ([facility]) Platelet Count, Automated 307 10 150-450 Normal (applies to non-numeric results) [facility] ([facility]) Red Cell Distribution Width 13.1 % 11.5-14.5 Norm al (applies to non-numeric results) [facility] ([facility]) Rock % 4.3 % 0.0-5.0 Normal (applies to non-numeric resul ts) [facility] ([facility]) Lymph % 18.7 % 24.0-44.0 Below low normal [facility] ( [facility]) Neutrophils % 73.3 % 36.0-66.0 Above high normal [facility] ([facility]) Baso % 1.0 % 0.0-1.0 Normal (applies to non-numeric resul ts) [facility] ([facility]) Eos % 2.5 % 0.0-3.0 Normal (applies to non-numeric resul ts) [facility] ([facility]) Immature Granulocyte % 0.2 % 0-3.0 Normal (applies to non-n umeric results) [facility] ([facility]) Neutrophils # 6.2 10 1.5-8.5 Normal (applies to non-numeric re sults) [facility] ([facility]) Nucleated Red Blood Cell % 0.0 % 0-0 Normal (applies to n on-numeric results) [facility] ([facility]) Lymph # 1.6 10 1.5-5.0 Normal (applies to non-numeric resul ts) [facility] ([facility]) Rock # 0.4 10 0.0-0.8 Normal (applies to non-numeric resul ts) [facility] ([facility]) Eos # 0.2 10 0.0-0.5 Normal (applies to non-numeric resul ts) [facility] ([facility]) Baso # 0.1 10 0.0-0.2 Normal (applies to non-numeric resul ts) [facility] ([facility]) ID Date Data Source [id number] 03/21/2019 09:48:00 AM EST [facility] ([facility]) Name Value Range Interpretation Code Description Data Tisha rce(s) Supporting Document(s) Venous Partial Pressure Co2 47.9 mmHg 38.0-50.0 Norm al (applies to non-numeric results) [facility] ([facility]) Venous PH 7.339 units 7.330-7.430 Normal (applies to non-numeric res ults) [facility] ([facility]) Venous Partial Pressure O2 81.5 mmHg 30.0-50.0 Above high normal [facility] ([facility]) Venous Hco3 25.2 meq/L 23.0-27.0 Normal (applies to non-numeric resu lts) [facility] ([facility]) Venous Total Co2 26.7 meq/L 24.0-28.0 Normal (applies to non-numeric results) [facility] ([facility]) Venous Base Excess -1.2 Normal (applies to non-numer ic results) [facility] ([facility]) Venous O2 Saturation 95.2 % 60.0-80.0 Above high normal [facility] Venous Standard Hco3 23.4 meq/L Normal (applies to non-num denita results) [facility] ([facility]) Procedure Social History Code Duration Value Status Description Data Source(s ) 04/24/2020 12:00:00 AM EST Patient is a current smoker, smokes every day completed Patient is a current smoker, smokes every day [facility] ( [facility]) Alcohol intake 04/11/2020 12:00:00 AM EST No completed [facility] Cigarette pack-years 04/11/2020 12:00:00 AM EST UNK completed [facility] Cigarettes smoked current (pack per day) - Reported 04/11/20 12:00:00 AM EST UNK completed [facility] Smoking 04/11/2020 12:00:00 AM EST Current every day smoker co mpleted Current every day smoker [facility] Smoking 04/05/2020 12:00:00 AM EST Current Smoker completed Curre nt Smoker eCW1 ([facility]) Smoking 04/05/2020 12:00:00 AM EST Current Smoker completed Curre nt Smoker eCW1 ([facility]) Smoking 04/05/2020 12:00:00 AM EST Current Smoker completed Curre nt Smoker eCW1 ([facility]) Alcohol intake 04/01/2020 12:00:00 AM EST No completed [facility] Cigarette pack-years 04/01/2020 12:00:00 AM EST UNK completed [facility] Cigarettes smoked current (pack per day) - Reported 04/01/20 20 12:00:00 AM EST UNK completed [facility] Smoking 04/01/2020 12:00:00 AM EST Current every day smoker co mpleted Current every day smoker [facility] Smoking 03/28/2020 12:00:00 AM EST Current Smoker completed Curre nt Smoker eCW1 ([facility]) ETOH Use 03/21/2020 12:00:00 AM EST Denies alcohol use complete d Denies alcohol use [facility] ([facility]) Smoking 03/21/2020 12:00:00 AM EST Former Cigarette Smok er 1 Pack Daily completed Former Cigarette Smoker 1 Pack Daily [facility] ([facility]) Smoking 03/21/2020 12:00:00 AM EST Current Smoker completed Curre nt Smoker eCW1 ([facility]) Smoking 02/29/2020 12:00:00 AM EST Current Smoker completed Curre nt Smoker eCW1 ([facility]) Smoking 02/29/2020 12:00:00 AM EST Current Smoker completed Curre nt Smoker eCW1 ([facility]) Smoking 02/29/2020 12:00:00 AM EST Current Smoker completed Curre nt Smoker eCW1 ([facility]) Smoking 02/29/2020 12:00:00 AM EST Current Smoker completed Curre nt Smoker eCW1 ([facility]) Smoking 02/29/2020 12:00:00 AM EST Current Smoker completed Curre nt Smoker eCW1 ([facility]) Alcohol intake 02/13/2020 12:00:00 AM EDT No completed [facility] Cigarette pack-years 02/13/2020 12:00:00 AM EDT UNK completed [facility] Cigarettes smoked current (pack per day) - Reported 02/13/20 12:00:00 AM EDT UNK completed [facility] Smoking 02/13/2020 12:00:00 AM EDT Current every day smoker co mpleted Current every day smoker [facility] Alcohol intake 02/05/2020 12:00:00 AM EDT No completed [facility] Cigarette pack-years 02/05/2020 12:00:00 AM EDT UNK completed [facility] Cigarettes smoked current (pack per day) - Reported 02/05/20 12:00:00 AM EDT UNK completed [facility] Smoking 02/05/2020 12:00:00 AM EDT Current every day smoker co mpleted Current every day smoker [facility] Smoking 02/02/2020 12:00:00 AM EDT Current Smoker completed Curre nt Smoker eCW1 ([facility]) Smoking 02/02/2020 12:00:00 AM EDT Current Smoker completed Curre nt Smoker eCW1 ([facility]) Smoking 02/02/2020 12:00:00 AM EDT Current Smoker completed Curre nt Smoker eCW1 ([facility]) Smoking 02/02/2020 12:00:00 AM EDT Current Smoker completed Curre nt Smoker eCW1 ([facility]) Smoking 02/02/2020 12:00:00 AM EDT Current Smoker completed Curre nt Smoker eCW1 ([facility]) Smoking 02/02/2020 12:00:00 AM EDT Current Smoker completed Curre nt Smoker eCW1 ([facility]) Vital Signs ID Date Data Source UNK Name Value Range Interpretation Code Description Data Source(s) Oxygen saturation in Arterial blood by Pulse oximetry 97 % 97 % [facility] Body mass index (BMI) [Ratio] 30.04 kg/m2 30.04 kg/m2 [facility] Body weight 79.379 kg 79.379 kg [facility] Body height 162.6 cm 162.6 cm [facility] Heart rate 88 /min 88 /min [facility] Diastolic blood pressure 58 mm[Hg] 58 mm[Hg] [facility] Systolic blood pressure 100 mm[Hg] 100 mm[Hg] [facility] Body mass index (BMI) [Ratio] 29.2 kg/m2 29.2 k g/m2 [facility] ([facility]) Body weight 77.112 kg 77.112 kg [facility] ([facility] Body weight 170.00 [lb_av] 170.00 [lb_av] [facility] ([facility]) Body height 64 [in_i] 64 [in_i] [facility] ([facility]) 5'4" Heart rate 76 /min 76 /min [facility] ([facility] Diastolic blood pressure 60 mm[Hg] 60 mm[Hg] [facility] ([facility]) Systolic blood pressure 90 mm[Hg] 90 mm[Hg] [facility] ([facility]) Diastolic blood pressure 50 mm[Hg] 50 mm[Hg] [facility] ([facility]) Systolic blood pressure 96 mm[Hg] 96 mm[Hg] [facility] ([facility]) Oxygen saturation in Arterial blood by Pulse oximetry 96 % 96 % [facility] Respiratory rate 18 /min 18 /min [facility] Body temperature 36.61 Simi 36.61 Simi [facility] Heart rate 71 /min 71 /min [facility] Diastolic blood pressure 81 mm[Hg] 81 mm[Hg] [facility] Systolic blood pressure 170 mm[Hg] 170 mm[Hg] [facility] Body mass index (BMI) [Ratio] 31.86 kg/m2 31.86 kg/m2 [facility] Body weight 84.188 kg 84.188 kg [facility] Body height 162.6 cm 162.6 cm [facility] Diastolic blood pressure 91 mm[Hg] 91 mm[Hg] eCW1 ([facility]) Systolic blood pressure 156 mm[Hg] 156 mm[Hg] e CW1 ([facility]) Body temperature 96 [degF] 96 [degF] eCW1 ([facility]) Respiratory rate 18 /min 18 /min eCW1 ([facility]) Heart rate 93 /min 93 /min eCW1 ([facility]) Body mass index (BMI) [Ratio] 29.18 kg/m2 29.18 kg/m2 eCW1 ([facility]) Body height 64 [in_i] 64 [in_i] eCW1 ([facility]) Body weight kg eCW1 ([facility]) Body weight 170 [lb_av] 170 [lb_av] eCW1 ([facility]) Oxygen saturation in Arterial blood by Pulse oximetry 97 % 97 % [facility] Body mass index (BMI) [Ratio] 30.38 kg/m2 30.38 kg/m2 [facility] Body weight 80.287 kg 80.287 kg [facility] Body height 162.6 cm 162.6 cm [facility] Heart rate 85 /min 85 /min [facility] Diastolic blood pressure 60 mm[Hg] 60 mm[Hg] [facility] Systolic blood pressure 100 mm[Hg] 100 mm[Hg] [facility] Diastolic blood pressure 58 mm[Hg] 58 mm[Hg] eCW1 ([facility]) Systolic blood pressure 118 mm[Hg] 118 mm[Hg] e CW1 ([facility]) Body temperature 97.9 [degF] 97.9 [degF] eCW1 ( [facility]) Respiratory rate 18 /min 18 /min eCW1 ([facility]) Heart rate 94 /min 94 /min eCW1 ([facility]) Body mass index (BMI) [Ratio] 29.18 kg/m2 29.18 kg/m2 eCW1 ([facility]) Body height 64 [in_i] 64 [in_i] eCW1 ([facility]) Body weight kg eCW1 ([facility]) Body weight 170 [lb_av] 170 [lb_av] eCW1 ([facility]) Body mass index (BMI) [Ratio] 29.2 kg/m2 29.2 k g/m2 [facility] Body weight 77.112 kg 77.112 kg [facility] Body weight 170.00 [lb_av] 170.00 [lb_av] [facility] ([facility]) Body height 64 [in_i] 64 [in_i] [facility] ([facility]) 5'4" Diastolic blood pressure 50 mm[Hg] 50 mm[Hg] [facility] ([facility]) Systolic blood pressure 80 mm[Hg] 80 mm[Hg] [facility] ([facility]) Diastolic blood pressure 50 mm[Hg] 50 mm[Hg] [facility] ([facility] Systolic blood pressure 90 mm[Hg] 90 mm[Hg] [facility] ([facility]) Diastolic blood pressure 61 mm[Hg] 61 mm[Hg] eCW1 ([facility]) Systolic blood pressure 131 mm[Hg] 131 mm[Hg] e CW1 ([facility]) Body temperature 96.5 [degF] 96.5 [degF] eCW1 ( [facility]) Respiratory rate 20 /min 20 /min eCW1 ([facility]) Heart rate 94 /min 94 /min eCW1 ([facility]) Body mass index (BMI) [Ratio] 29.18 kg/m2 29.18 kg/m2 eCW1 ([facility]) Body height 64 [in_i] 64 [in_i] eCW1 ([facility]) Body weight kg eCW1 ([facility]) Body weight 170 [lb_av] 170 [lb_av] eCW1 ([facility]) Body mass index (BMI) [Ratio] 29.2 kg/m2 29.2 k g/m2 [facility] ([facility]) Body weight 77.112 kg 77.112 kg [facility] ([facility] Body weight 170.00 [lb_av] 170.00 [lb_av] [facility] T ([facility]) Body height 64 [in_i] 64 [in_i] [facility] ([facility] 5'4" Heart rate 88 /min 88 /min [facility] ([facility]) Diastolic blood pressure 65 mm[Hg] 65 mm[Hg] [facility] ([facility]) Systolic blood pressure 100 mm[Hg] 100 mm[Hg] [facility] ([facility]) Body temperature 95.6 [degF] 95.6 [degF] eCW1 ( [facility]) Respiratory rate 22 /min 22 /min eCW1 ([facility]) Heart rate 81 /min 81 /min eCW1 ([facility]) Body mass index (BMI) [Ratio] 29.18 kg/m2 29.18 kg/m2 W1 ([facility]) Body height 64 [in_i] 64 [in_i] eCW1 ([facility]) Body weight kg eCW1 ([facility]) Body weight 170 [lb_av] 170 [lb_av] eCW1 ([facility]) Oxygen saturation in Arterial blood by Pulse oximetry 95 % 95 % [facility] Respiratory rate 18 /min 18 /min [facility] Body temperature 37.06 Simi 37.06 Simi [facility] Heart rate 89 /min 89 /min [facility] Diastolic blood pressure 55 mm[Hg] 55 mm[Hg] [facility] Systolic blood pressure 114 mm[Hg] 114 mm[Hg] [facility] [facility] Body mass index (BMI) [Ratio] 28.84 kg/m2 28.84 kg/m2 [facility] Body weight 76.204 kg 76.204 kg [facility] Body height 162.6 cm 162.6 cm [facility] Heart rate 98 /min 98 /min [facility] Diastolic blood pressure 79 mm[Hg] 79 mm[Hg] [facility] Systolic blood pressure 157 mm[Hg] 157 mm[Hg] [facility] Oxygen saturation in Arterial blood by Pulse oximetry 97 % 97 % [facility] Respiratory rate 18 /min 18 /min [facility] Body temperature 36.61 Simi 36.61 Simi [facility] Body mass index (BMI) [Ratio] 30.86 kg/m2 30.86 kg/m2 [facility] Body weight 81.557 kg 81.557 kg [facility] Body height 162.6 cm 162.6 cm [facility] Diastolic blood pressure 77 mm[Hg] 77 mm[Hg] eCW1 ([facility]) Systolic blood pressure 133 mm[Hg] 133 mm[Hg] e CW1 ([facility]) Body temperature 96.0 [degF] 96.0 [degF] eCW1 ( [facility]) Respiratory rate 19 /min 19 /min eCW1 ([facility]) Heart rate 100 /min 100 /min eCW1 ([facility]) Body mass index (BMI) [Ratio] 27.46 kg/m2 27.46 kg/m2 W1 ([facility]) Body height 64 [in_i] 64 [in_i] eCW1 ([facility]) Body weight kg eCW1 ([facility]) Body weight 160 [lb_av] 160 [lb_av] eCW1 ([facility]) Diastolic blood pressure 60 mm[Hg] 60 mm[Hg] eCW1 ([facility]) Systolic blood pressure 113 mm[Hg] 113 mm[Hg] e CW1 ([facility]) Body temperature 96.9 [degF] 96.9 [degF] eCW1 ( [facility]) Respiratory rate 20 /min 20 /min eCW1 ([facility]) Heart rate 99 /min 99 /min eCW1 ([facility]) Body mass index (BMI) [Ratio] 27.46 kg/m2 27.46 kg/m2 eCW1 ([facility]) Body height 64 [in_i] 64 [in_i] eCW1 ([facility]) Body weight kg eCW1 ([facility]) Body weight 160 [lb_av] 160 [lb_av] eCW1 ([facility]) Diastolic blood pressure 76 mm[Hg] 76 mm[Hg] eCW1 ([facility]) Systolic blood pressure 149 mm[Hg] 149 mm[Hg] e CW1 ([facility]) Body temperature 96.6 [degF] 96.6 [degF] eCW1 ( [facility]) Respiratory rate 20 /min 20 /min eCW1 ([facility]) Heart rate 93 /min 93 /min eCW1 ([facility]) Body mass index (BMI) [Ratio] 27.46 kg/m2 27.46 kg/m2 eCW1 ([facility]) Body height 64 [in_i] 64 [in_i] eCW1 ([facility]) Body weight 160 [lb_av] 160 [lb_av] eCW1 ([facility]) Oxygen saturation in Arterial blood by Pulse oximetry 96 % 96 % [facility] ([facility]) Body temperature 98.2 [degF] 98.2 [degF] [facility] ([facility]) Respiratory rate 20 /min 20 /min [facility] ( [facility]) Heart rate 100 /min 100 /min [facility] ([facility]) Body height 63.3 [in_i] 63.3 [in_i] [facility] ([facility]) 5'3.30" Diastolic blood pressure 78 mm[Hg] 78 mm[Hg] [facility] ([facility]) Systolic blood pressure 137 mm[Hg] 137 mm[Hg] M EDENT ([facility]) Heart rate 71 /min 71 /min [facility] Diastolic blood pressure 38 mm[Hg] 38 mm[Hg] [facility] ([facility] Systolic blood pressure 70 mm[Hg] 70 mm[Hg] M EDENT ([facility] Body weight 160.00 [lb_av] 160.00 [lb_av] MEDEN T ([facility] Body height 64 [in_i] 64 [in_i] [facility] ([facility] 5'4" Body mass index (BMI) [Ratio] 27.5 kg/m2 27.5 k g/m2 [facility] ([facility] Body weight 72.576 kg 72.576 kg [facility] ([facility]) Body mass index (BMI) [Ratio] 27.5 kg/m2 27.5 k g/m2 [facility] ([facility]) Body weight 160.00 [lb_av] 160.00 [lb_av] MEDEN T ([facility]) Body height 64 [in_i] 64 [in_i] [facility] ([facility]) 5'4" Oxygen saturation in Arterial blood by Pulse oximetry 97 % 97 % [facility] ([facility]) Room Air Heart rate 100 /min 100 /min [facility] ([facility]) Diastolic blood pressure 70 mm[Hg] 70 mm[Hg] [facility] ([facility]) Systolic blood pressure 118 mm[Hg] 118 mm[Hg] [facility] ([facility]) Oxygen saturation in Arterial blood by Pulse oximetry 97 % 97 % [facility] ([facility]) Body temperature 99.0 [degF] 99.0 [degF] [facility] ([facility]) Respiratory rate 18 /min 18 /min [facility] ( [facility]) Heart rate 91 /min 91 /min [facility] ([facility]) Body mass index (BMI) [Ratio] 28.6 kg/m2 28.6 k g/m2 [facility] ([facility]) Body weight 163.12 [lb_av] 163.12 [lb_av] MEDEN T ([facility]) Body height 63.3 [in_i] 63.3 [in_i] [facility] ([facility]) 5'3.30" Body weight 73.937 kg 73.937 kg [facility] ([facility]) Body mass index (BMI) [Ratio] 28.0 kg/m2 28.0 k g/m2 [facility] ([facility]) Body weight 163.00 [lb_av] 163.00 [lb_av] MEDEN T ([facility]) Body height 64 [in_i] 64 [in_i] [facility] ([facility]) 5'4" Heart rate 98 /min 98 /min [facility] ([facility]) Diastolic blood pressure 67 mm[Hg] 67 mm[Hg] [facility] ([facility]) Systolic blood pressure 99 mm[Hg] 99 mm[Hg] [facility] ([facility]) Body weight 75.411 kg 75.411 kg [facility] ([facility]) Body mass index (BMI) [Ratio] 28.5 kg/m2 28.5 k g/m2 [facility] ([facility]) Body weight 166.25 [lb_av] 166.25 [lb_av] MED[facility] T ([facility]) Body height 64 [in_i] 64 [in_i] [facility] ([facility]) 5'4" Diastolic blood pressure 64 mm[Hg] 64 mm[Hg] [facility] ([facility]) Systolic blood pressure 102 mm[Hg] 102 mm[Hg] [facility] ([facility]) Body mass index (BMI) [Ratio] 29.6 kg/m2 29.6 k g/m2 [facility] ([facility]) Body weight 168.50 [lb_av] 168.50 [lb_av] MED[facility] T ([facility]) Body height 63.3 [in_i] 63.3 [in_i] [facility] ([facility]) 5'3.30" Diastolic blood pressure 64 mm[Hg] 64 mm[Hg] [facility] ([facility]) Systolic blood pressure 120 mm[Hg] 120 mm[Hg] M EDENT ([facility]) Oxygen saturation in Arterial blood by Pulse oximetry 96 % 96 % [facility] ([facility]) Body temperature 97.4 [degF] 97.4 [degF] [facility] Respiratory rate 18 /min 18 /min [facility] ( [facility]) Heart rate 75 /min 75 /min [facility] Body weight 75.468 kg 75.468 kg [facility] Body mass index (BMI) [Ratio] 28.6 kg/m2 28.6 k g/m2 [facility] ([facility]) Body weight 166.38 [lb_av] 166.38 [lb_av] MED[facility] T ([facility]) Body height 64 [in_i] 64 [in_i] [facility] ([facility]) 5'4" Diastolic blood pressure 80 mm[Hg] 80 mm[Hg] [facility] ([facility]) Systolic blood pressure 112 mm[Hg] 112 mm[Hg] [facility] Body mass index (BMI) [Ratio] 28.3 kg/m2 28.3 k g/m2 [facility] ([facility] Heart rate 98 /min 98 /min [facility] ([facility] Diastolic blood pressure 64 mm[Hg] 64 mm[Hg] [facility] ([facility] Systolic blood pressure 94 mm[Hg] 94 mm[Hg] M [facility]ENT ([facility] Body weight 165.00 [lb_av] 165.00 [lb_av] [facility] T ([facility] Body height 64 [in_i] 64 [in_i] [facility] ([facility] 5'4" Body weight 74.844 kg 74.844 kg [facility] ([facility]) Body mass index (BMI) [Ratio] 28.3 kg/m2 28.3 k g/m2 [facility] Body weight 165.00 [lb_av] 165.00 [lb_av] MED[facility] T ([facility]) Body height 64 [in_i] 64 [in_i] [facility] 5'4" Diastolic blood pressure 82 mm[Hg] 82 mm[Hg] [facility] ([facility]) Systolic blood pressure 112 mm[Hg] 112 mm[Hg] [facility] Body weight 74.844 kg 74.844 kg [facility] ([facility]) Body mass index (BMI) [Ratio] 28.3 kg/m2 28.3 k g/m2 [facility] ([facility]) Body weight 165.00 [lb_av] 165.00 [lb_av] MED[facility] T ([facility]) Body height 64 [in_i] 64 [in_i] [facility] ([facility]) 5'4" Body temperature 96.7 [degF] 96.7 [degF] [facility] ([facility]) Diastolic blood pressure 62 mm[Hg] 62 mm[Hg] [facility] ([facility]) Systolic blood pressure 102 mm[Hg] 102 mm[Hg] [facility] Oxygen saturation in Arterial blood by Pulse oximetry 98 % 98 % [facility] ([facility]) Body temperature 99.2 [degF] 99.2 [degF] [facility] ([facility]) Respiratory rate 18 /min 18 /min [facility] ( [facility]) Heart rate 89 /min 89 /min [facility] ([facility]) Body mass index (BMI) [Ratio] 29.2 kg/m2 29.2 k g/m2 [facility] ([facility]) Body weight 166.50 [lb_av] 166.50 [lb_av] MED[facility] T ([facility]) Body height 63.3 [in_i] 63.3 [in_i] [facility] ([facility]) 5'3.30" Diastolic blood pressure 62 mm[Hg] 62 mm[Hg] [facility] ([facility]) Systolic blood pressure 126 mm[Hg] 126 mm[Hg] [facility] Body weight 74.901 kg 74.901 kg [facility] ([facility], ) Body mass index (BMI) [Ratio] 28.3 kg/m2 28.3 k g/m2 [facility] ([facility]) Body weight 165.12 [lb_av] 165.12 [lb_av] [facility] Body height 64 [in_i] 64 [in_i] [facility] ([facility]) 5'4" Body temperature 98.4 [degF] 98.4 [degF] [facility] ([facility]) Diastolic blood pressure 60 mm[Hg] 60 mm[Hg] [facility] ([facility]) Systolic blood pressure 110 mm[Hg] 110 mm[Hg] [facility] ([facility]) Oxygen saturation in Arterial blood by Pulse oximetry 94 % 94 % [facility] ([facility]) Body temperature 98.3 [degF] 98.3 [degF] [facility] ([facility]) Respiratory rate 20 /min 20 /min [facility] ( [facility]) Heart rate 84 /min 84 /min [facility] ([facility]) Body mass index (BMI) [Ratio] 31.5 kg/m2 31.5 k g/m2 [facility] ([facility]) Body weight 179.50 [lb_av] 179.50 [lb_av] MED[facility] T ([facility]) Body height 63.3 [in_i] 63.3 [in_i] [facility] 5'3.30" Diastolic blood pressure 74 mm[Hg] 74 mm[Hg] [facility] ([facility]) Systolic blood pressure 132 mm[Hg] 132 mm[Hg] [facility] ([facility]) Body weight 78.926 kg 78.926 kg [facility] ([facility]) Body mass index (BMI) [Ratio] 29.9 kg/m2 29.9 k g/m2 [facility] ([facility]) Body weight 174.00 [lb_av] 174.00 [lb_av] [facility] Body height 64 [in_i] 64 [in_i] [facility] ([facility]) 5'4" Diastolic blood pressure 52 mm[Hg] 52 mm[Hg] [facility] ([facility]) Systolic blood pressure 102 mm[Hg] 102 mm[Hg] [facility] ([facility]) Oxygen saturation in Arterial blood by Pulse oximetry 99 % 99 % [facility] ([facility]) Body temperature 98.8 [degF] 98.8 [degF] [facility] ([facility]) Respiratory rate 22 /min 22 /min [facility] ( [facility]) Heart rate 102 /min 102 /min [facility] ([facility]) Body mass index (BMI) [Ratio] 30.8 kg/m2 30.8 k g/m2 [facility] ([facility]) Body weight 175.38 [lb_av] 175.38 [lb_av] [facility] Body height 63.3 [in_i] 63.3 [in_i] [facility] ([facility]) 5'3.30" Diastolic blood pressure 86 mm[Hg] 86 mm[Hg] [facility] ([facility]) Systolic blood pressure 132 mm[Hg] 132 mm[Hg] [facility] ([facility]) Body weight 77.282 kg 77.282 kg [facility] ([facility]) Body mass index (BMI) [Ratio] 29.2 kg/m2 29.2 k g/m2 [facility] ([facility], ) Body weight 170.38 [lb_av] 170.38 [lb_av] [facility] Body height 64 [in_i] 64 [in_i] [facility] ([facility]) 5'4" Diastolic blood pressure 72 mm[Hg] 72 mm[Hg] [facility] ([facility]) Systolic blood pressure 102 mm[Hg] 102 mm[Hg] [facility] Oxygen saturation in Arterial blood by Pulse oximetry 99 % 99 % [facility] ([facility]) Body temperature 98.6 [degF] 98.6 [degF] [facility] ([facility]) Respiratory rate 20 /min 20 /min [facility] ( [facility]) Heart rate 96 /min 96 /min [facility] ([facility]) Body mass index (BMI) [Ratio] 30.0 kg/m2 30.0 k g/m2 [facility] ([facility]) Body weight 171.12 [lb_av] 171.12 [lb_av] [facility] Body height 63.3 [in_i] 63.3 [in_i] [facility] ([facility]) 5'3.30" Diastolic blood pressure 62 mm[Hg] 62 mm[Hg] [facility] ([facility]) Systolic blood pressure 110 mm[Hg] 110 mm[Hg] [facility] Patient Treatment Plan of Care Planned Activity Planned Date Details Description Data Source (s) Amoxicillin 875 MG / Clavulanate 125 MG Oral Tablet 04/25/19 12:00:00 AM [facility] Amoxicillin 875 MG / Clavulanate 125 MG Oral Tablet 04/15/20 12:00:00 AM [facility] Fluconazole 200 MG Oral Tablet 04/14/2020 12:00:00 AM [facility] TRULICITY 4.5 MG/0.5ML SOPN 04/02/2020 12:00:00 AM [facility] Escitalopram 20 MG Oral Tablet 04/01/2020 12:00:00 AM [facility] Acetaminophen 325 MG / Hydrocodone Bitartrate 5 MG Ora l Tablet 03/28/2020 12:00:00 AM [facility] Acetaminophen 325 MG / Oxycodone Hydrochloride 5 MG Or al Tablet 03/21/2020 12:00:00 AM [facility] Aspirin 325 MG Oral Tablet 03/15/2020 12:00:00 AM [facility] pregabalin 200 MG Oral Capsule 02/27/2020 12:00:00 AM [facility] Metronidazole 250 MG Oral Tablet 02/20/2020 12:00:00 AM [facility] Ciprofloxacin 250 MG Oral Tablet 02/20/2020 12:00:00 AM [facility] DAILY CHE (THERAGRAN) per tablet 02/17/2020 12:00:00 AM EDT [facility] Meropenem 1 GM 02/16/2020 01:00:00 AM EDT [facility] ([facility]) Docusate Sodium 02/16/2020 01:00:00 AM EDT [facility] ([facility]) Clopidogrel Bisulfate 75 MG 02/16/2020 01:00:00 AM EDT [facility] ([facility]) Steglatro 15 MG 02/16/2020 01:00:00 AM EDT [facility] ([facility]) Pregabalin 150 MG 02/16/2020 01:00:00 AM EDT [facility] ([facility]) Pentoxifylline ER 400 MG 02/16/2020 01:00:00 AM EDT [facility] ([facility]) Ondansetron HCl 4 MG 02/16/2020 01:00:00 AM EDT [facility] ([facility]) Omeprazole 40 MG 02/16/2020 01:00:00 AM EDT [facility] ([facility]) Heparin 02/16/2020 01:00:00 AM EDT N [facility] ([facility]) Normal Saline Flush 0.9 % 02/16/2020 01:00:00 AM EDT [facility] ([facility]) Multivitamin 02/16/2020 01:00:00 AM EDT [facility] ([facility]) Bisacodyl Supp. 02/16/2020 01:00:00 AM EDT [facility] ([facility]) Oxycodone & Tylenol 02/16/2020 01:00:00 AM EDT [facility] ([facility]) Cyclobenzaprine 02/16/2020 01:00:00 AM EDT [facility] ([facility]) Escitalopram Oxalate 10 MG 02/16/2020 01:00:00 AM EDT [facility] ([facility]) Ferrous Sulfate 02/16/2020 01:00:00 AM EDT [facility] ([facility]) Lisinopril 5 MG 02/16/2020 01:00:00 AM EDT [facility] ([facility]) Loratadine 10 MG 02/16/2020 01:00:00 AM EDT [facility] ([facility]) Metoclopramide 02/16/2020 01:00:00 AM EDT [facility] ([facility]) Nystatin Powder 02/16/2020 01:00:00 AM EDT [facility] ([facility]) Tresiba FlexTouch 100 UNIT/ML 02/16/2020 01:00:00 AM EDT [facility] ([facility]) Trulicity 0.75 MG/0.5ML 02/16/2020 01:00:00 AM EDT [facility] ([facility]) Admelog SoloStar 100 UNIT/ML 02/16/2020 01:00:00 AM EDT [facility] ([facility]) Albuterol Sulfate HFA 108 (90 Base) MCG/ACT 02/16/2020 01:00:00 AM EDT [facility] ([facility]) Breo Ellipta 100-25 MCG/INH 02/16/2020 01:00:00 AM EDT [facility] ([facility]) Atorvastatin Calcium 80 MG 02/16/2020 01:00:00 AM EDT [facility] ([facility]) BuPROPion HBr ER 522 MG 02/16/2020 01:00:00 AM EDT [facility] ([facility]) Aspirin 02/16/2020 01:00:00 AM EDT N [facility] ([facility]) MiraLax 17 GM 02/16/2020 01:00:00 AM EDT [facility] ([facility]) Sodium Chloride Flush (NORMAL SALINE FLUSH) 0.9 % SOLN injection 02/16/2020 12:00:00 AM EDT [facility] Bisacodyl 10 MG Rectal Suppository 02/16/2020 12:00:00 AM EDT [facility] POLYETHYLENE GLYCOL 3350 142 MG/ML Oral Solution 02/16/2020 12:00:0 0 AM EDT [facility] meropenem (MERREM) 1 g injection 02/16/2020 12:00:00 AM EDT [facility] Chlorhexidine Gluconate (BIOPATCH PROTECTIVE DISK/CHG) (Dressing) [facility] 02/16/2020 12:00:00 AM EDT [facility] 3 ML heparin sodium, porcine 100 UNT/ML Prefilled Syri nge 02/16/2020 12:00:00 AM EDT [facility] Aspirin 325 MG Oral Tablet 02/16/2020 12:00:00 AM EDT [facility] Acetaminophen 325 MG / Oxycodone Hydrochloride 5 MG Or al Tablet 02/16/2020 12:00:00 AM EDT [facility] meropenem 2 g in sodium chloride 0.9 % 100 mL IVPB 02/16/2020 12 :00:00 AM EDT [facility] meropenem (MERREM) 1 g injection 02/16/2020 12:00:00 AM EDT [facility] Chlorhexidine Gluconate (BIOPATCH PROTECTIVE DISK/CHG) (Dressing) MISC 02/16/2020 12:00:00 AM EDT [facility] Sodium Chloride Flush (NORMAL SALINE FLUSH) 0.9 % SOLN injection 02/16/2020 12:00:00 AM EDT [facility] 3 ML heparin sodium, porcine 100 UNT/ML Prefilled Syri nge 02/16/2020 12:00:00 AM EDT [facility] clopidogrel 75 MG Oral Tablet 07/26/2019 12:00:00 AM EDT [facility] Ondansetron 4 MG Oral Tablet 07/22/2019 12:00:00 AM EDT [facility] Metoclopramide 10 MG Oral Tablet 07/13/2019 12:00:00 AM EDT [facility] atorvastatin 80 MG Oral Tablet 06/15/2019 12:00:00 AM EST [facility] 0.5 ML dulaglutide 3 MG/ML Auto-Injector [Trulicity] 020 12:00:00 AM EST [facility] Lisinopril 5 MG Oral Tablet 05/26/2019 12:00:00 AM EST [facility] Mupirocin 0.02 MG/MG Topical Ointment 05/26/2019 12:00:00 AM EST [facility] TRESIBA FLEXTOUCH 200 UNIT/ML SOPN 04/05/2019 12:00:00 AM EST [facility] B-D ULTRAFINE III SHORT PEN 31G X 8 MM MISC 03/07/2019 12:00:00 AM EST [facility] Nystatin 100 UNT/MG Topical Powder 03/06/2019 12:00:00 AM EST [facility] Aspirin 325 MG Oral Tablet 03/06/2019 12:00:00 AM EST [facility] STEGLATRO 15 MG TABS 02/21/2019 12:00:00 AM EST [facility] 30 ACTUAT fluticasone furoate 0.2 MG/ACT UAT / vilanterol 0.025 MG/ACTUAT Dry Powder Inhaler [Breo] 02/16/2019 12:00:00 AM EDT [facility] pregabalin 150 MG Oral Capsule 01/16/2019 12:00:00 AM EDT [facility] ONE TOUCH ULTRA TEST test strip 12/21/2015 12:00:00 AM EDT [facility] B-D INS SYR ULTRAFINE 1CC/31G 31G X /" 1 ML MISC 10/11/19 16 12:00:00 AM EDT [facility] Escitalopram 10 MG Oral Tablet [facility] Insulin Lispro 100 UNT/ML Injectable Solution [facility] Acetaminophen 325 MG / Hydrocodone Bitartrate 5 MG Oral Tablet [facility] duloxetine 60 MG Delayed Release Oral Capsule [facility]
[2020-05-08] MEDS ORDERED: ISOVUE-370 76% 100ML VIAL As Ordered ONE (17:04)
--- NOTE | 2020-05-08 20:50 | ECGEPIP ---
[facility] - ED Test Date: 2020-05-08 Pat Name: TATIANNA LAMB Department: Room: - Gender: Female Manager Services: yung : [id number] Requested By: RYAN Puentes Order Number: [id number] Reading MD: Rj Singh Measurements Intervals Jud Rate: 97 P: 59 NE: 160 QRS: 19 QRSD: 100 T: 73 QT: 351 QTc: 447 Interpretive Statements SINUS RHYTHM POOR R WAVE PROGRESSION NONSPECIFIC T-WAVE ABNORMALITY SIMILAR TO 02/04/20 Electronically Signed on 05-08-2020 20:50:14 EST by Rj Singh
== END 2020-05-08 17:08 | disposition left against medical advice (07) ==
LOC: M ED 14:21
DX: E11.65 Type 2 diabetes mellitus with hyperglycemia (principal); R11.2 Nausea with vomiting, unspecified; Z53.9 Procedure and treatment not carried out, unspecified reason; I25.10 Atherosclerotic heart disease of native coronary artery without angina pectoris; I10 Essential (primary) hypertension; I25.2 Old myocardial infarction; Z88.8 Allergy status to other drugs, medicaments and biological substances; Z79.899 Other long term (current) drug therapy

== ENCOUNTER 2020-05-17 16:44 | Emergency (ER) | payer OTHER ==
[~2020-05-17] VITALS: Ht 162.6 cm; Wt 76.4 kg
[~2020-05-17 16:44] MED LIST changes: +LISI-542 PO; -LISI-898 PO
--- OUTSIDE RECORDS SUMMARY | 2020-05-17 16:52 | CCD ---
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 Active 110090200 Problem Type 2 diabetes mellitus with foot ulcer E11.621 Active 294902772 Problem Non-pressure chronic ulcer o f other part of unspecified foot with unspecified severity L97.509 Active 850676387 Problem intermediate manager (current) use of insulin Z79.4 Activ e [id number] ALLERGIES No Known Allergies ENCOUNTERS from 1967 to 2020-05-11 Encounter Location Date Provider Diagnosis [facility] [address] [place] [address] Apr Yesenia Luke Type 2 diabetes mellitus with [...] School Language: Question Answer Notes Languages spoken: Mauritian Oriental Orthodox: Question Answer Notes Oriental Orthodox No uatsdin beliefs that would impact health care. Alcohol Screening: Question Answer Notes Did you have a drink containing alcohol in the past year? No Points 0 Interpretation Negative Tobacco Use: Question Answer Notes Are you a: current smoker using patch/pill REASON FOR REFERRAL No Information VITAL SIGNS Weight 170 lbs Apr, Height 64 in Apr, BMI 29.18 kg/m2 Apr, Heart Rate 105 /min Apr, Temperature 96.9 degrees Fahrenheit Apr, Oximetry 98 Apr, Blood pressure systolic 130 mm Hg Apr, Blood pressure diastolic 60 mm Hg Apr, MEDICATIONS Medication SIG (Take, Route, Frequency, Duration) Notes Start Da te End Date Status Metronidazole 250 MG 1 tablet Orally Three times a day for 10 day(s) Active Pentoxifylline - as directed Active Multivitamin - 1 tablet Orally Once a day for 30 day(s) Active Lyrica 150 MG 1 capsule Orally Once a day Active Steglatro 15 MG 1 tablet Orally Once a day for 30 day(s) Active Prilosec 10 MG as directed Orally Ac tive Ferrous Sulfate 325 (65 Fe) MG 1 tablet Orally Once a day for 30 day( s) Active Zofran 4 MG 1 tablet Orally Once a day for 30 day(s) Active Loratadine 10 MG 1 tablet Orally Once a day for 30 day(s) Active Docusate Sodium 100 MG 1 capsule as needed Orally Once a day for 30 day(s) Active Metoclopramide HCl 10 MG 1 tablet before meals Orally Twice a day for 30 day(s) Active Tresiba 200 U/mL Not-Taki ng Insulin Lispro 100 UNIT/ML as directed Subcutaneous Not-Taking BuPROPion HCl 100 MG 1 tablet Orally Twice a day for 30 day(s) Active Hydrocodone-Acetaminophen 5-325 MG 1 tablet as needed Orally every 6 hrs Active Aspirin 325 MG 1 tablet Orally Once a day for 30 day(s) Active Cymbalta 60 MG 1 capsule Orally Once a day for 30 day(s) Not-Taking vicodin 1 tab Oral for 14 days No t-Taking Lisinopril 5 MG 1 tablet Orally Once a day for 30 day(s) Active Lexapro 10 MG 1 tablet Orally Once a day for 30 day(s) Active Atorvastatin Calcium 80 MG 1 tablet Orally Once a day for 30 day(s) Active Oxycodone-Acetaminophen 5-325 MG 1 tablet as needed Orally every 6 hr s Active Nystatin - as directed Not-Taking Plavix 75 MG 1 tablet Orally Once a day for 30 day(s) Active Albuterol Sulfate (2.5 MG/3ML) 0.083% 3 ml as needed Inhalation ilene ry 6 hrs Not-Taking Ciprofloxacin HCl 750 MG 1 tablet Orally every 12 hrs for 10 day(s) Not-Taking Cyclobenzaprine HCl 5 MG 1 tablet at bedtime as neede d Orally Once a day for 30 day(s) Not-Taking Trulicity 0.75 MG/0.5ML as directed Subcutaneous Not-Taking PROCEDURES from 1967 to 2020-05-11 Procedure Date Ordered Result Body Site Medication: 4% Lidocaine topical cream (Anecream) 2020-04-30 N/A RESULTS No Results REASON FOR VISIT [...] coma 2015 Hospitalization History SURGERY RELATED 2019 Hospitalization History infection in right hip wound 2019 Goals Section No Information Health Concerns No Information MEDICAL EQUIPMENT No Information MENTAL STATUS No Information FUNCTIONAL STATUS No Information ASSESSMENTS Encounter Date Diagnosis Assessment Notes Treatment Notes Treatm ent Clinical Notes Apr, Type 2 diabetes mellitus with foot ulcer (ICD-10 - E11.621) Apr, 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 EC VASHE LOT [id number] EXP 08/2020 APPLIED TO LEFT HEEL WOUND FOR 10 MINUTE SOAK. EC XYLOCAINE HCL 2% LOT:[id number] EXP:12/09 2ML INJECTED BY HARLAN PLAN OF TREATMENT Next Appt Details 1 Week Reason: Provider Name:Yeseniajose armando Luke, 05-17 09:30:00 AM, [address] [place], [address], Insurance Providers Payer Name Payer Address Payer Phone Insured Name Patient Relati onship to Insured Coverage Start Date Coverage End Date [facility] [address] [facility] [phone] TATIANNA LAMB self
--- OUTSIDE RECORDS SUMMARY | 2020-05-17 16:52 | CCD | Continuity of Care Document ---
Author Author [facility] [employer] Organization Unknown Address Unknown Phone Unavailable Care Team Providers Care Commander Internal Affairs Name Role Phone Cece Weber Unavailable Krystian Spears Unavailable [facility] Unavailable Unavailable Unavailable Ijeoma Yadira Unavailable Efe Bryan Unavailable Problems Name Dates Details Type 2 diabetes keyur litus with foot ulcer (E11.621) 16-Apr-2020 Status: Active senior living (current) use of aspirin (Z79.82) 16-Apr-2020 Status: Active senior living (current) use of antithrombotics/antiplatelets (Z79.02) 16-Apr-2020 Status: Active 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) 16-Apr-2020 Status: Active Nicotine dependence , cigarettes, uncomplicated (F17.210) 16-Apr-2020 Status: Active Essential (primary) hypertension (I10) 16-Apr-2020 Status: Active 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) 16-Apr-2020 Status: Active Atherosclerosis of grindstone arteries of extremities with intermittent claudication, bilateral legs (I70.213) 16-Apr-2020 Status: Active Type 2 diabetes keyur litus with diabetic peripheral angiopathy without gangrene (E11.51) 16-Apr-2020 Status: Active Presence of aortoco ronary bypass graft (Z95.1) 16-Apr-2020 Status: Active History of falling (Z91.81) 16-Apr-2020 Status: Active Presence of other v ascular implants and grafts (Z95.828) 16-Apr-2020 Status: Active Obstructive sleep a pnea (adult) (pediatric) (G47.33) 16-Apr-2020 Status: Active Gastro-esophageal r eflux disease without esophagitis (K21.9) 16-Apr-2020 Status: Active Unspecified osteoar thritis, unspecified site (M19.90) 16-Apr-2020 Status: Active Type 2 diabetes keyur litus with diabetic neuropathy, unspecified (E11.40) 16-Apr-2020 Status: Active Chronic obstructive pulmonary disease, unspecified (J44.9) 16-Apr-2020 Status: Active Non-pressure chroni c ulcer of left heel and midfoot with unspecified severity (L97.429) 16-Apr-2020 Status: Active Infection following a procedure, deep incisional surgical site, initial encounter (T81.42XA) 16-Apr-2020 Status: Active Medications Name Dates Details Protonix 40 MG Cece Weber Active Amoxicillin-Pot Clavulanate 875-125 MG Dk-Cece Luna* Start : 16-Apr-2020 End : 18-Apr-2020 Inactive Steglatro 15 MG Dk-Cece Luna* Start : 16-Apr-2020 Active Escitalopram Oxalate 20 MG Cece Weber* Start : 03-Apr-2020 Active Fluconazole 200 MG Dk-Cece Luna* Start : 01-Apr-2020 End : 15-Apr-2020 Inactive Bactrim DS 800-160 MG Dk-Cece Luna* Start : 02-Mar-2020 End : 06-Mar-2020 Inactive Pregabalin 200 MG Dk-Cece Luna* Start : 28-Feb-2020 Active Ciprofloxacin HCl 250 MG Cece Weber* Start : 23-Feb-2020 End : 03-Apr-2020 Inactive MetroNIDAZOLE 250 MG Dk-Cece Luna* Start : 23-Feb-2020 End : 03-Apr-2020 Inactive Acetaminophen 8 Hour 650 MG 1-2 tablets every 6 hours as needed for pain, max daily dose 4 tablets Dk-Cece Luna* Start : 23-Feb-2020 Active Benadryl Allergy 25 MG 1-2 tablets daily as needed for sleep Cece Weber* Start : 23-Feb-2020 Active Atorvastatin Calcium 80 MG Dk-Cece Luna* Start : 23-Feb-2020 End : 28-Feb-2020 Inactive MiraLax 17 GM Dk-Cece Luna* Start : 16-Feb-2020 Active Aspirin DkKike Rodrigues Start : 16-Feb-2020 Active BuPROPion HBr ER 522 MG Kike Weber Start : 16-Feb-2020 Active Atorvastatin Calcium 80 MG Kike Weber Start : 16-Feb-2020 Active Breo Ellipta 100-25 MCG/INH Kike Weber Start : 16-Feb-2020 Active Albuterol Sulfate HFA 108 (90 Base) MCG/ACT prnq 4hrs. for sob Max Daily Dose=6 Dk-Kike Luna Start : 16-Feb-2020 Active Admelog SoloStar 100 UNIT/ML Kike Weber Start : 16-Feb-2020 End : 28-Feb-2020 Inactive Trulicity 0.75 MG/0.5ML takes on Wednesday Kike Weber Start : 16-Feb-2020 Active Tresiba FlexTouch 100 UNIT/ML Kike Weber Start : 16-Feb-2020 Active Nystatin Powder prn 2 x day for rash as needed Max Daily Dose=2 Dk-Kike Luna Start : 16-Feb-2020 End : 16-Apr-2020 Inactive Metoclopramide Kike Weber Start : 16-Feb-2020 Active Loratadine 10 MG Kike Weber Start : 16-Feb-2020 Active Lisinopril 5 MG Kike Weber Start : 16-Feb-2020 Active Ferrous Sulfate with breakfast Kike Weber Start : 16-Feb-2020 Active Escitalopram Oxalate 10 MG Kike Weber Start : 16-Feb-2020 End : 03-Apr-2020 Inactive Cyclobenzaprine prn 2 x day for muscle spasms Max Daily Dose=2 Dk-Kike Luna Start : 16-Feb-2020 Active Oxycodone & Tylenol prn q 4hrs. for pain Max Daily Dose=8 Dk-Kike Luna Start : 16-Feb-2020 Active Bisacodyl Supp. states not using Dk-Kike Luna Start : 16-Feb-2020 End : 23-Feb-2020 Inactive Multivitamin Dk-Cheryl, Cece* Start : 16-Feb-2020 Active Normal Saline Flush 0.9 % before & afetr med administration -dual lumen-red flush q 24hrs. Kike Weber Start : 16-Feb-2020 End : 22-Feb-2020 Inactive Heparin (100 U/ml)after med given & after NS flush Kike Weber Start : 16-Feb-2020 End : 22-Feb-2020 Inactive Omeprazole 40 MG Kike Weber Start : 16-Feb-2020 End : 03-May-2020 Inactive Ondansetron HCl 4 MG prn q 8hrs. for nausea Max Daily Dose=3 Kike Weber Start : 16-Feb-2020 Active Pentoxifylline ER 400 MG tid with meals Kike Weber Start : 16-Feb-2020 Active Pregabalin 150 MG Kike Weber Start : 16-Feb-2020 End : 28-Feb-2020 Inactive Steglatro 15 MG Kike Weber Start : 16-Feb-2020 End : 03-Apr-2020 Inactive Clopidogrel Bisulfate 75 MG Kike Weber Start : 16-Feb-2020 Active Docusate Sodium prn 2 x day for constipation Max Daily Dose=2 Kike Weber Start : 16-Feb-2020 Active Meropenem 1 GM Kike Weber Start : 16-Feb-2020 End : 22-Feb-2020 Inactive Allergies and Adverse Reactions Name Dates Details Grapefruit Concentrate (Allergy) Onset: 16-Apr-2020 Status: Active Basaglar Kwikpen (Allergy) Onset: Status: Active Invokana (Allergy) Onset: 16-Apr-2020 Status: Active Results Date Description Value Details No Known Results Plan of Care Name Dates Details Instructions Diet:Consistent CarbsLow Satur ated FatLow Sodium Ins truction Type: Nutrition education Payers * [facility] Plan * [facility]
[2020-05-17] MEDS ORDERED: NITROGLYCERIN 0.4 MG SUBL TABLET SL PRN (17:15)
[2020-05-17] MEDS ORDERED: ASPIRIN 81 MG CHEW TABLET PO ONE (17:15)
[2020-05-17 17:25] LABS: BASO # 0.1 10^3/uL (0.0-0.2); BASO % 0.6 % (0.0-1.0); EOS # 0.5 10^3/uL (0.0-0.5); EOS % 3.2 % (0.0-3.0); HEMATOCRIT 48.2 % (36.0-47.0); HEMOGLOBIN 15.4 g/dl (12.0-15.5); LYMPH # 3.3 10^3/uL (1.5-5.0); LYMPH % 23.5 % (24.0-44.0); MEAN CORPUSCULAR HEMOGLOBIN 26.6 pg (27.0-33.0); MEAN CORPUSCULAR VOLUME 83.1 fl (80.0-96.0); MONO # 0.7 10^3/uL (0.0-0.8); MONO % 5.1 % (0.0-5.0); NEUTROPHILS # 9.5 10^3/uL (1.5-8.5); NEUTROPHILS % 67.1 % (36.0-66.0); PLATELET COUNT, AUTOMATED 325 10^3/uL (150-450); WHITE BLOOD COUNT 14.2 10^3/uL (4.0-10.0)
[2020-05-17 17:34] VITALS: BP 125/71
[2020-05-17 17:41] LABS: INR 0.88; PARTIAL THROMBOPLASTIN TIME 28.5 SECONDS (24.2-38.5); PROTHROMBIN TIME 12.1 SECONDS (12.5-14.3)
[2020-05-17 17:58] LABS: ALBUMIN 3.3 GM/DL (3.2-5.2); ALT/SGPT 19 U/L (12-78); BILIRUBIN,DIRECT < 0.1 MG/DL (0.0-0.2); BILIRUBIN,TOTAL 0.2 MG/DL (0.2-1.0); LIPASE 142 U/L (73-393); TOTAL PROTEIN 7.3 GM/DL (6.4-8.2)
--- OUTSIDE RECORDS SUMMARY | 2020-05-17 18:08 | CCD ---
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 Name Role Phone Concepción MCCARTY DPM Unavailable [...] FLORECITA DPM Unavailable Unavailable Fons, M Karen UNEMPLOYMENT SPECIALIST Unavailable Unavailable Fons, M Karen UNEMPLOYMENT SPECIALIST Unavailable Unavailable Fons, M Karen UNEMPLOYMENT SPECIALIST Unavailable Unavailable Fons, M Karen UNEMPLOYMENT SPECIALIST Unavailable Unavailable Fons, M Karen UNEMPLOYMENT SPECIALIST Unavailable Unavailable Fons, M Karen UNEMPLOYMENT SPECIALIST Unavailable Unavailable Fons, M Karen UNEMPLOYMENT SPECIALIST Unavailable Unavailable Fons, M Karen UNEMPLOYMENT SPECIALIST Unavailable Unavailable Fons, M Karen UNEMPLOYMENT SPECIALIST Unavailable Unavailable Fons, M Karen UNEMPLOYMENT SPECIALIST Unavailable Unavailable Fons, M Karen UNEMPLOYMENT SPECIALIST Unavailable Unavailable Fons, M Karen UNEMPLOYMENT SPECIALIST Unavailable Unavailable Fons, M Karen UNEMPLOYMENT SPECIALIST Unavailable Unavailable Fons, M Karen UNEMPLOYMENT SPECIALIST Unavailable Unavailable Fons, M Karen UNEMPLOYMENT SPECIALIST Unavailable Unavailable Fons, M Karen UNEMPLOYMENT SPECIALIST Unavailable Unavailable Fons, M Karen UNEMPLOYMENT SPECIALIST Unavailable Unavailable Fons, M Karen UNEMPLOYMENT SPECIALIST Unavailable Unavailable Fons, M Karen UNEMPLOYMENT SPECIALIST Unavailable Unavailable Fons, M Karen UNEMPLOYMENT SPECIALIST Unavailable Unavailable Fons, M Karen UNEMPLOYMENT SPECIALIST Unavailable Unavailable Fons, M Karen UNEMPLOYMENT SPECIALIST Unavailable Unavailable Fons, M Karen UNEMPLOYMENT SPECIALIST Unavailable Unavailable Fons, M Karen UNEMPLOYMENT SPECIALIST Unavailable Unavailable Fons, M Karen UNEMPLOYMENT SPECIALIST Unavailable Unavailable Fons, M Karen UNEMPLOYMENT SPECIALIST Unavailable Unavailable Fons, M Karen UNEMPLOYMENT SPECIALIST Unavailable Unavailable Fons, M Karen UNEMPLOYMENT SPECIALIST Unavailable Unavailable Fons, M Karen UNEMPLOYMENT SPECIALIST Unavailable Unavailable Fons, M Karen UNEMPLOYMENT SPECIALIST Unavailable Unavailable Fons, M Karen UNEMPLOYMENT SPECIALIST Unavailable Unavailable Fons, M Karen UNEMPLOYMENT SPECIALIST Unavailable Unavailable Fons, M Karen UNEMPLOYMENT SPECIALIST Unavailable Unavailable Fons, M Karen UNEMPLOYMENT SPECIALIST Unavailable Unavailable Fons, M Karen UNEMPLOYMENT SPECIALIST Unavailable Unavailable Fons, M Karen UNEMPLOYMENT SPECIALIST Unavailable Unavailable Fons, M Karen UNEMPLOYMENT SPECIALIST Unavailable Unavailable Fons, M Karen UNEMPLOYMENT SPECIALIST Unavailable Unavailable Fons, M Karen UNEMPLOYMENT SPECIALIST Unavailable Unavailable Fons, M Karen UNEMPLOYMENT SPECIALIST Unavailable Unavailable Fons, M Karen UNEMPLOYMENT SPECIALIST Unavailable Unavailable Fons, M Karen UNEMPLOYMENT SPECIALIST Unavailable Unavailable Fons, M Karen UNEMPLOYMENT SPECIALIST Unavailable Unavailable Fons, M Karen UNEMPLOYMENT SPECIALIST Unavailable Unavailable Fons, M Karen UNEMPLOYMENT SPECIALIST Unavailable Unavailable Fons, M Karen UNEMPLOYMENT SPECIALIST Unavailable Unavailable Fons, M Karen UNEMPLOYMENT SPECIALIST Unavailable Unavailable Fons, M Karen UNEMPLOYMENT SPECIALIST Unavailable Unavailable Fons, M Karen UNEMPLOYMENT SPECIALIST Unavailable Unavailable Fons, M Karen UNEMPLOYMENT SPECIALIST Unavailable Unavailable Fons, M Karen UNEMPLOYMENT SPECIALIST Unavailable Unavailable Fons, M Karen UNEMPLOYMENT SPECIALIST Unavailable Unavailable Fons, M Karen UNEMPLOYMENT SPECIALIST Unavailable Unavailable Fons, M Karen UNEMPLOYMENT SPECIALIST Unavailable Unavailable SEMEL, Harris PETER MD Unavailable [...] Unavailable Mike, Genevieve PA Unavailable Unavailable Mike, Geneveive PA Unavailable Unavailable Mike, Genevieve PA Unavailable [...] Unavailable Unavailable SABA SMITH MD Unavailable Unavailable NAZESABA Jacobo MD Unavailable Unavailable NAZESABA Jacobo MD Unavailable Unavailable NAZESABA Jacobo MD Unavailable Unavailable NAZESABA Jacobo MD Unavailable Unavailable NAZEALEC JacoboMAOsiel BARNETT Unavailable Unavailable NAZEMALECMAOsiel MD Unavailable Unavailable NAZEM [...] Unavailable Unavailable NAZEM AHMAOsiel MD Unavailable Unavailable NAZEM, AHMAD MD Unavailable [...] Unavailable O'tung, A Baljinder PA Unavailable Unavailable Marek LEVINE MD Unavailable Unavailable Marek LEVINE MD Unavailable Unavailable Marek LEVINE MD Unavailable Unavailable Marek LEVINE MD Unavailable Unavailable Marek LEVINE MD Unavailable Unavailable Marek LEVINE MD Unavailable Unavailable Marek LEVINE MD Unavailable Unavailable Marek LEVINE MD Unavailable Unavailable Marek LEVINE MD Unavailable Unavailable Marek LEVINE MD Unavailable Unavailable Marek LEVINE MD Unavailable Unavailable Marek LEVINE MD Unavailable Unavailable Marek LEVINE MD Unavailable Unavailable Marek LEVINE MD Unavailable Unavailable Marek LEVINE MD Unavailable Unavailable Marek LEVINE MD Unavailable Unavailable Marek LEVINE MD Unavailable Unavailable Marek LEVINE MD Unavailable Unavailable Marek LEVINE MD Unavailable Unavailable Marek LEVINE MD Unavailable Unavailable Marek LEVINE MD Unavailable Unavailable Marek LEVINE MD Unavailable Unavailable Marek LEVINE MD Unavailable Unavailable Marek LEVINE MD Unavailable Unavailable Marek LEVINE MD Unavailable Unavailable Marek LEVINE MD Unavailable Unavailable Marek LEVINE MD Unavailable Unavailable Marek LEVINE MD Unavailable Unavailable Marek LEVINE MD Unavailable Unavailable Marek LEVINE MD Unavailable Unavailable Marek LEVINE MD Unavailable Unavailable Marek LEVINE MD Unavailable Unavailable Marek LEVINE MD Unavailable Unavailable Marek LEVINE MD Unavailable Unavailable Marek LEVINE MD Unavailable Unavailable Marek LEVINE MD Unavailable Unavailable Marek LEVINE MD Unavailable Unavailable Marek LEVINE MD Unavailable Unavailable Marek LEVINE MD Unavailable Unavailable Marek LEVINE MD Unavailable Unavailable Marek LEVINE MD Unavailable Unavailable KilgoreTabatha Dainderik BARNETT Unavailable Unavailable Kilgore, Tabatha Dain Unavailable Unavailable Kilgore, Tabatha Dain Unavailable Unavailable Kilgore, Tabatha Dain Unavailable Unavailable Kilgore, Tabatha Dain Unavailable Unavailable Kilgore, Tabatha Dain MD Unavailable Unavailable Claribel, Tabatha Dain Unavailable Unavailable Kilgore, Tabatha Dain MD Unavailable Unavailable Kilgore, Tabatha Dain Unavailable Unavailable Claribel, Tabatha Dain Unavailable Unavailable Claribel, Tabatha Dain Unavailable Unavailable Claribel, Tabatha Dain MD Unavailable Unavailable Kilgore, Tabatha Dain Unavailable Unavailable Kilgore, Tabatha Dain MD Unavailable Unavailable Claribel, Tabatha Dain Unavailable Unavailable Claribel, Tabatha Dain Unavailable Unavailable Kilgore, Tabatha Dain Unavailable Unavailable Claribel, Tabatha Dain MD Unavailable Unavailable Kilgore, Tabatha Dain Unavailable Unavailable Kilgore, Tabatha Dain Unavailable Unavailable Kilgore, Tabatha Dain Unavailable Unavailable Claribel, Tabatha Dain Unavailable Unavailable Claribel, Tabatha Dainderik BARNETT Unavailable Unavailable Kilgore, Tabatha Dain Unavailable Unavailable Kilgore, Tabatha Dain Unavailable Unavailable Kilgore, Tabatha Dain Unavailable Unavailable Kilgore, Tabatha Dain Unavailable Unavailable Claribel, Tabatha Dain Unavailable Unavailable Claribel, Tabatha Dain Unavailable Unavailable Claribel, Tabatha Dain Unavailable Unavailable Claribel, Tabatha Dain MD Unavailable Unavailable Claribel, Tabatha Dain MD Unavailable Unavailable Claribel, Tabatha Dain MD Unavailable Unavailable Claribel, Tabatha Dain MD Unavailable Unavailable Kilgore, Tabatha Dain MD Unavailable Unavailable Claribel, Tabatha Dain MD Unavailable Unavailable Kilgore, Tabatha Dain Unavailable Unavailable Kilgore, Tabatha Dain MD Unavailable Unavailable Claribel, Tabatha Dain Unavailable Unavailable Kilgore, Tabatha Dain MD Unavailable Unavailable Kilgore, Tabatha Dain MD Unavailable Unavailable Claribel, Tabatha Dain MD Unavailable Unavailable Tabatha Sanford MD Unavailable Unavailable Tabatha Sanford MD Unavailable [...] is protected by Article 27-F of the [facility] Public Health law. If you continue you may have access to information: Regarding HIV / AIDS; Provided by facilities licensed or operated by the [facility] Office of Mental Health; or Provided by the [facility] Office for People With Developmental Disabilities. If such information is present, then the following [facility] mandated warning applies: This information has been [...] law may result in a fine or shelter sentence or both. A general authorization for the release of medical or other information is NOT sufficient authorization for further disc losure. Allergies and Adverse Reactions Type Description Substance Reaction Status Data Source(s ) Invokana Invokana Invokana active NETSMART ([facility]) Basaglar Kwikpen Basaglar Kwikpen Basaglar Kwikpen active NETSMART ([facility]) Grapefruit Concentrate Grapefruit Concentrate Grapefruit Concentrate active NETSMART ([facility]) Adverse Reaction Adverse Reaction Insulin Glargine Itching Moderate MEDENT ([facility]) Adverse Reaction Adverse Reaction canagliflozin Itching Mild MED[facility] ([facility]) Propensity to adverse reactions CANAGLIFLOZIN canagliflozin Itching L ow Active [facility] Low Propensity to adverse reactions GRAPEFRUIT CONCENTRATE Grapefrui t Concentrate Itching Medium Hives Medium Active [facility] Medium Medium Propensity to adverse reactions INSULIN GLARGINE Insulin Glargin e Itching Medium Active [facility] Medium Drug Allergy NKDA NKDA MEDENT ([facility]) Family History Family Member Name Family Member Gender Family Member Status Date o f Status Description Data Source(s) Unknown Male Problem MEDENT ([facility] ) Encounters Encounter Providers Location Date Indications Data Source(s ) ([id number]) For Template Amanda [address] [place] [id number] 05/10/2020 12:00:00 AM EST eCW1 ([facility]) ([id number]) For Template Amanda [address] [place] [phone] 04/30/2020 12:00:00 AM EST eCW1 ([facility]) Outpatient Attender: Karen MAYORGA SJP.RASHIDA-SJP.RASHIDA 12:00:00 AM EST - 2020 01:46:07 PM EST [facility] Office Visit Attender: Dain Sanford MD Main Office 12:15:00 PM EST MEDENT ([facility]) Unknown [address] [address] 04/22/2020 12:00:00 AM EST eCW1 (Critical access hospital) 04/16/2020 12:00:00 AM EST - 021 08:29:28 PM EST NETSMART ([facility]) Unknown [address] [address] 04/15/2020 12:00:00 AM EST eCW1 (Critical access hospital) Inpatient Attender: BRITTANI BIRMINGHAM MDAdmitter: BRITTANI LUIS MD [id number] 04/10/2020 11:17:08 PM EST - 04/15/2020 01:18:[address] [facility] Patient discharged. ([id number]) For Template Amanda [address] [place] [address] 04/05/2020 12:00:00 AM EST eCW1 ([facility]) Outpatient Attender: Karen MAYORGA SJP.RASHIDA-SJP.RASHIDA 0 12:00:00 AM EST - 03/29/2020 04:01:18 PM EST [facility] ([id number]) For Template Amanda [address] [place] [address] 03/28/2020 12:00:00 AM EST eCW1 ([facility]) Office Visit Attender: Genevieve GALVIN Main Office 03/21/2020 01:45:00 PM EST MEDENT ([facility]) ([id number]) For Template Amanda [address] [place] [address] 03/21/2020 12:00:00 AM EST eCW1 ([facility]) Unknown [address] [facility] [address] 03/08/2020 12:00:00 AM EST eCW1 (Critical access hospital) Unknown [address] [facility] [address] 03/06/2020 12:00:00 AM EST eCW1 (Critical access hospital) Unknown [address] [facility], [facility] [place] [address] 03/05/2020 12:00:00 AM EST eCW1 (Critical access hospital) Office Visit Attender: Dain Sanford MD Main Office 09:45:00 AM EST MEDENT ([facility]) ([id number]) For Template Amanda [address] [place] [address] 02/29/2020 12:00:00 AM EST eCW1 ([facility]) Unknown [address] [facility] [address] 02/22/2020 12:00:00 AM EST eCW1 (Critical access hospital) Unknown [address] [facility], [facility] [place] [address] 02/22/2020 12:00:00 AM EST eCW1 (Critical access hospital) Outpatient Attender: Dain Jacobo DAttender: BRITTANI BIRMINGHAM MDAdmitter: BRITTANI B[place] MDReferrer: BRITTANI B[place]MING[place] MDConsultant: Dain Sanford MD [id number] 02/18/2020 04:40:24 PM EST - 02/20/2020 09:35:[address] [facility] Patient discharged. 02/16/2020 01:00:00 AM EDT - 05:10:48 PM EST [facility] Inpatient Attender: Dain Jacobo DAdmitter: Dain Sanford MDConsultant: SHANTELL LEVINE MD [id number]-[id number] 02/05/2020 04:17:29 AM EDT - 02/16/2020 12:57:[address] [facility] Patient discharged. Unknown [address] [facility], [facility] [place] [address] 02/05/2020 12:00:00 AM EDT eCW1 (Critical access hospital) Unknown [address] [address] 02/05/2020 12:00:00 AM EDT eCW1 (Critical access hospital) ([id number]) For Template Amanda [address] [place] [address] 02/02/2020 12:00:00 AM EDT eCW1 ([facility]) ([id number]) For Template Amanda [address] [place] [address] 01/26/2020 12:00:00 AM EDT eCW1 ([facility]) SDC Attender: SABA SMITH MDAdmitter: SABA SMITH MD ES1-OR 01/24/2020 09:09:[address] [facility] Outpatient Attender: SABA SMITH MD MOCAM-MOCAM.CSA 020 12:00:00 AM EDT - 01/23/2020 11:40:56 [id number] For Template Amanda [address] [place] [address] 01/17/2020 12:00:00 AM EDT eCW1 ([facility]) Outpatient Attender: Baljinder GALVIN [facility] 01/05/2020 11:00:00 AM EDT MEDENT ([facility]) [facility] 10:00:00 AM EDT MED[facility] ([facility] Emergency ES1-ES1 12/07/2019 07:08:00 PM EDT - 020 11:18:[address] [facility] Patient discharged. Outpatient Attender: Karen MAYORGA SJP.RASHIDA-SJP.RASHIDA 0 12:00:00 AM EDT - 11/20/2019 10:37:22 AM EDT [facility] Outpatient Attender: Baljinder GALVIN [facility] 11/16/2019 01:10:00 PM EDT MEDENT ([facility]) Outpatient Attender: Tiana Mcmahan/Adela/Osmar/Concepción couch 10/30/2019 09:00:00 AM EDT MEDENT ([facility]: [facility] 01:00:00 PM EDT MED[facility]: [facility] 01:00:00 PM EDT MED[facility] Att[facility]: [facility] 02:15:00 PM EDT MEDENT ([facility] Outpatient Attender: Baljinder GALVIN [facility] 09/27/2019 09:20:00 AM EDT MEDENT ([facility]) Outpatient Attender: Krystian MICHELE PC 09/26/2019 07:37:19 PM E DT [facility] Outpatient Attender: Tiana Longoria RPA Marj/[place]/Osmar/R eindl 09/26/2019 10:45:00 AM EDT MEDENT ([facility] Outpatient Attender: FLORECITA MCCARTY [facility] 11/2019 01:15:00 PM EDT MEDENT ([facility] Outpatient Attender: Krystian MICHELE PC 09/16/2019 12:11:06 AM E DT [facility] Outpatient Referrer: PRADEEP GALVIN 09/07/2019 06: 19:00 AM EDT [facility] Outpatient Attender: Tiana Longoria RPA Marj/[place]/Osmar/R eindl 09/04/2019 09:30:00 AM EDT MEDENT ([facility]) Outpatient Attender: Tiana Longoria RPA Marj/[place]/Osmar/R eindl 08/14/2019 11:00:00 AM EDT MEDENT ([facility]) Outpatient Attender: Karen MAYORGA SJP.RASHIDA-SJP 0 12:00:00 AM EDT - 08/10/2019 09:49:36 AM EDT [facility] Outpatient Attender: Baljinder GALVIN [facility] 07/21/2019 01:00:00 PM EDT MEDENT ([facility]) Outpatient Attender: Tiana Longoria RPA Marj/[place]/Osmar/R eindl 07/20/2019 09:45:00 AM EDT MED[facility] ([facility]) Outpatient Attender: Baljinder GALVIN [facility] 07/05/2019 02:30:00 PM EDT MEDENT ([facility]) Outpatient Referrer: Karen GRANTSJMER 07/05/2019 12:00:[address] [facility] Outpatient Referrer: PRADEEP GALVIN 07/04/2019 11: 08:00 AM EDT [facility] Outpatient Attender: Tiana Longoria RPA Marj/[place]/Osmar/R eindl 07/03/2019 09:00:00 AM EDT MEDENT ([facility]) Outpatient Attender: Baljinder GALVIN [facility] 06/12/2019 01:00:00 PM EST MEDENT ([facility]) Outpatient Attender: FLORECITA MCCARTY [facility] Office 05/21 02:45:00 PM EST MED[facility] Outpatient Attender: Tiana Mcmahan/[place]/Osmar/R eindl 05/30/2019 08:00:00 AM EST MED[facility] ([facility]) Outpatient Referrer: PRADEEP GALVIN 05/24/2019 08: 35:00 AM EST [facility] Outpatient Attender: FLORECITA MCCARTY [facility] Office 04/20 01:30:00 PM EST MEDENT ([facility] Outpatient Attender: Karen GRANTSJMER 0 10:25:28 AM EST - 05/11/2019 10:57:26 AM EST [facility] Outpatient Attender: Tiana Mcmahan/[place]/Osmar/R eindl 04/27/2019 09:45:00 AM EST MEDENT ([facility] Outpatient Referrer: PRADEEP GALVIN 04/24/2019 08: 58:00 PM EST [facility] Outpatient Attender: Karen GRANTSJMER 04/11/2019 12:00:[address] [facility] Outpatient Attender: Baljinder GALVIN [facility] 03/29/2019 09:40:00 AM CAILIN GARCIA ([facility]) Immunizations Vaccine Date Status Description Data Source(s) influenza, recombinant, quadrIvalent,injectable, prese rvative free 01/26/2020 10:09:00 AM EDT completed eCW1 ([facility]) influenza, recombinant, quadrIvalent,injectable, prese rvative free 01/26/2020 10:09:00 AM EDT completed eCW1 ([facility]) influenza, recombinant, quadrIvalent,injectable, prese rvative free 01/26/2020 10:09:00 AM EDT completed eCW1 ([facility]) influenza, recombinant, quadrIvalent,injectable, prese rvative free 01/26/2020 10:09:00 AM EDT completed eCW1 ([facility]) influenza, recombinant, quadrIvalent,injectable, prese rvative free 01/26/2020 10:09:00 AM EDT completed eCW1 ([facility]) influenza, recombinant, quadrIvalent,injectable, prese rvative free 01/26/2020 10:09:00 AM EDT completed eCW1 ([facility]) influenza, recombinant, quadrIvalent,injectable, prese rvative free 01/26/2020 10:09:00 AM EDT completed eCW1 ([facility]) influenza, recombinant, quadrIvalent,injectable, prese rvative free 01/26/2020 10:09:00 AM EDT completed eCW1 ([facility]) influenza, recombinant, quadrIvalent,injectable, prese rvative free 01/26/2020 10:09:00 AM EDT completed eCW1 ([facility]) influenza, recombinant, quadrIvalent,injectable, prese rvative free 01/26/2020 10:09:00 AM EDT completed eCW1 ([facility]) influenza, recombinant, quadrIvalent,injectable, prese rvative free 01/26/2020 10:09:00 AM EDT completed eCW1 ([facility]) influenza, recombinant, quadrIvalent,injectable, prese rvative free 01/26/2020 10:09:00 AM EDT completed eCW1 ([facility]) influenza, recombinant, quadrIvalent,injectable, prese rvative free 01/26/2020 10:09:00 AM EDT completed eCW1 ([facility]) influenza, recombinant, quadrIvalent,injectable, prese rvative free 01/26/2020 10:09:00 AM EDT completed eCW1 ([facility]) influenza, recombinant, quadrIvalent,injectable, prese rvative free 01/26/2020 10:09:00 AM EDT completed eCW1 ([facility]) influenza, recombinant, quadrIvalent,injectable, prese rvative free 01/26/2020 10:09:00 AM EDT completed eCW1 ([facility]) influenza, recombinant, quadrIvalent,injectable, prese rvative free 01/26/2020 10:09:00 AM EDT completed eCW1 ([facility]) influenza, recombinant, quadrIvalent,injectable, prese rvative free 01/26/2020 10:09:00 AM EDT completed eCW1 ([facility]) Medications Medication Brand Name Start Date Product Form Dose Route Admi nistrative Instructions Pharmacy Instructions Status Indications Reaction Description Data Source(s) 200 mg 05/16/2020 12:00:00 AM EST capsule 180 TAKE ONE CAPSULE BY MOUTH TWICE A DAY MAXIMUM DAILY DOSE = 2 CAPSULES TAKE ONE CAPSULE BY MOUTH TWICE A DAY MAXIMUM DAILY DOSE = 2 CAPSULES SOLD: 05/16/2020 [facility] 1,000 mcg 05/16/2020 12:00:00 AM EST tablet 90 TAKE ONE TABLET BY MOUTH EVERY DAY TAKE ONE TABLET BY MOUTH EVERY DAY SOLD: 05/16/2020 [facility] 300 mg 05/16/2020 12:00:00 AM EST capsule 180 TAKE ONE CAPSULE BY MOUTH TWICE A DAY MAXIMUM DAILY DOSE = 2 CAPSULE TAKE ONE CAPSULE BY MOUTH TWICE A DAY MAXIMUM DAILY DOSE = 2 CAPSULE SOLD: 05/16/2020 [facility] 5-325 mg 05/14/2020 12:00:00 AM EST tablet 12 TAKE ONE TABLET BY MOUTH EVERY 8 HOURS NEEDED FOR PAIN MAXIMUM DAILY DOSE = 3 TABLETS TAKE ONE TABLET BY MOUTH EVERY 8 HOURS NEEDED FOR PAIN MAXIMUM DAILY DOSE = 3 TABLETS SOLD: 05/14/2020 [facility] 40 mg 05/13/2020 12:00:00 AM EST capsule,delayed release (DR/EC) 180 TAKE ONE CAPSULE BY MOUTH TWICE A DAY TAKE ONE CAPSULE BY MOUTH TWICE A DAY SOLD: 05/13/2020 [facility] 325 mg 05/13/2020 12:00:00 AM EST tablet 30 TAKE ONE TABLET BY MOUTH EVERY DAY TAKE ONE TABLET BY MOUTH EVERY DAY SOLD: 05/13/2020 [facility] 24 HR Bupropion Hydrochloride 150 MG Extended Release Oral T ablet BUPROPION HCL 05/12/2020 12:00:00 AM EST tablet extended release 24 hr 90 TAKE ONE TABLET BY MOUTH EVERY DAY TAKE ONE TABLET BY MOUTH EVERY DAY SOLD: 05/12/2020 [facility] 5-325 mg 05/09/2020 12:00:00 AM EST tablet 14 TAKE ONE TABLET BY MOUTH EVERY 12 HOURS NEEDED FOR PAIN MAXIMUM DAILY DOSE = 2 TABLETS TAKE ONE TABLET BY MOUTH EVERY 12 HOURS NEEDED FOR PAIN MAXIMUM DAILY DOSE = 2 TABLETS SOLD: 05/09/2020 [facility] pantoprazole 40 MG Delayed Release Oral Tablet PANTOPRAZOLE SODIUM 05/07/2020 12:00:00 AM EST tablet,delayed release (DR/EC) 90 T FITO ONE TABLET BY MOUTH EVERY DAY TAKE ONE TABLET BY MOUTH EVERY DAY SOLD: 05/09/2020 [facility] 200 mg 05/06/2020 12:00:00 AM EST tablet 7 TAKE ONE TABLET BY MOUTH EVERY DAY TAKE ONE TABLET BY MOUTH EVERY DAY SOLD: 05/09/2020 [facility] Protonix 40 MG Protonix 05/03/2020 12:00:00 AM EST 1.0 {tablet} completed NETSMART ([facility]) 5-325 mg 05/02/2020 12:00:00 AM EST tablet [...] per tablet 04/25/2020 12:00:[address] [facility] 875-125 mg 04/25/2020 12:00:00 AM EST tablet 20 TAKE ONE TABLET BY MOUTH EVERY 12 HOURS TAKE ONE TABLET BY MOUTH EVERY 12 HOURS SOLD: 04/25/2020 [facility] 5-325 mg 04/22/2020 12:00:00 AM EST tablet 30 TAKE ONE TABLET BY MOUTH EVERY 4 HOURS NEEDED FOR PAIN MAXIMUM DAILY DOSE = 6 TAKE ONE TABLET BY MOUTH EVERY 4 HOURS NEEDED FOR PAIN MAXIMUM DAILY DOSE = 6 SOLD: 04/22/2020 [facility] 400 mg 04/22/2020 12:00:00 AM EST tablet extended release 90 TAKE ONE TABLET BY MOUTH THREE TIMES A DAY TAKE ONE TABLET BY MOUTH THREE TIMES A DAY SOLD: 04/22/2020 [facility] 150 mg 04/20/2020 12:00:00 AM EST capsule 60 TAKE ONE CAPSULE BY MOUTH TWICE A DAY MAXIMUM DAILY DOSE = 2 CAPSULES TAKE ONE CAPSULE BY MOUTH TWICE A DAY MAXIMUM DAILY DOSE = 2 CAPSULES SOLD: 04/21/2020 [facility] Amoxicillin-Pot Clavulanate 875-125 MG Amoxicillin-Pot Clavu lanate 04/16/2020 12:00:00 AM EST 1.0 {tablet} completed NETSMART ([facility]) Steglatro 15 MG Steglatro 04/16/2020 12:00:00 AM EST 15.0 {mg} completed NETSMART ([facility]) Insulin Lispro 100 UNT/ML Injectable Kaushal ution insulin lispro (HumaLOG) injection 1-10 Units insulin lispro (HumaLOG) injection 1-10 Units 04/15/20 08:00:00 AM EST Subcutaneous active 1-1 0 Units, Subcutaneous, MEALSS, First dose on Wed04/15/20 at 0800
5 units Nutritional and Correction Insulin ScaleBlood Glucose (mg/dl) <70 start hypoglycemiaprotocolGlucoseEats >=50% Eats <50%Eats Nothing (mg/dl) of meal of mealor NPO70- 1203 units 2 units 0 [id number] units 3 units 0 dptwu501- 2206 units 3 units 1 [id number] units 4 units 2 - 3208 units 5 units 3 [id number] units 6 units 3 [id number] units 7 units 4 units>420 call MD10 units 8 units 5 unitsTest glucose within 30 minutes of insulin administration.Administer insulin within 15 minutes (before or after) of the patient starting to eat.For patients that are NPO, use theNPO (correction) scale to cover POC glucose at 08:00, 12:00, 17:00.
[facility] Medication administered onsite Amoxicillin 875 MG / Clavulanate 125 MG Oral Tablet amoxicillin-clavulanate (AUGMENTIN) 875-125 MG per tablet amoxicillin-clavulanate (AUGMENTIN) 875- 125 MG per tablet 04/15/2020 12:00:00 AM EST 1 {tbl} Oral active Take 1 tablet by mouth 2 (two) times a day for [address] [facility] 875-125 mg 04/15/2020 12:00:00 AM EST tablet 4 TAKE ONE TABLET BY MOUTH TWICE A DAY FOR 2 DAYS TAKE ONE TABLET BY MOUTH TWICE A DAY FOR 2 DAYS SOLD: 04/21/2020 [facility] ampicillin-sulbactam (UNASYN) 3 g in sodium chloride 0.9% (N S) 100 mL PIGTAIL 04/14/2020 01:00:00 PM EST 3 g Intravenous a ctive Skin and Soft Tissue Infection 3 g, Intravenous, Administer over 30 Minutes, Every 6 hours (relative), First dose on 04/14/[address] [facility] Skin and Soft Tissue Infection Medication administered onsite Insulin Glargine 100 UNT/ML Injectable S olution [Lantus] insulin glargine (LANTUS) injection 20 Units insulin glargine (LANTUS) injection 20 Units 04/14/2020 12:00:00 PM EST 20 U Subcutaneous active 20 Units, Subcutaneous, Daily (Lantus), First dose on 04/14/[address] [facility] Medication administered onsite Fluconazole 200 MG Oral Tablet fluconazole (DIFLUCAN) 200 MG tablet fluconazole (DIFLUCAN) 200 MG tablet 04/14/2020 12:00:00 AM EST 200 mg Oral active Take 200 mg by mouth daily [facility] 200 mg 04/14/2020 12:00:00 AM EST tablet 7 TAKE ONE TABLET BY MOUTH EVERY DAY TAKE ONE TABLET BY MOUTH EVERY DAY SOLD: 04/14/2020 [facility] vancomycin HCl (VANCOCIN) 750 mg in dextrose 5 % 250 mL IVPB 04/13/2020 09:00:00 PM EST 750 mg Intravenous aborted Sk in and Soft Tissue InfectionSepsis 750 mg, Intravenous, Adminis ter over 1 Hours, Every 12 hours (relative), First dose on 04/13/[address] [facility] Skin and Soft Tissue Infection Sepsis Medication [...] Drugs in the Workplace Policy on Intranet.
[facility] Skin and Soft Tissue Infection Medication administered onsite Insulin Glargine 100 UNT/ML Injectable S olution [Lantus] insulin glargine (LANTUS) injection 20 Units insulin glargine (LANTUS) injection 20 Units 04/13/2020 10:00:00 AM EST 20 U Subcutaneous aborted 20 Units, Subcutaneous, 2 Times Daily (Lantus), First dose on Wed04/13/[address] [facility] Medication administered onsite Insulin Lispro 100 UNT/ML Injectable [place] ution insulin lispro (HumaLOG) injection 2-28 Units insulin lispro (HumaLOG) injection 2-28 Units 04/12/20 05:00:00 PM EST Subcutaneous aborted 2-2 8 Units, Subcutaneous, MEALSS, First dose on Wed04/12/20 at 1700
14 units Nutritional and Correction Insulin ScaleBlood Glucose (mg/dl) <70 start hypoglycemiaprotocolGlucoseEats >=50% Eats <50%Eats Nothing (mg/dl) of meal of mealor NPO70- 1209 units 5 units 0 [id number] units 7 units 0 mgict353- 22267 units 9 units 2 -49487 units 12 units 5 -66149 units 14 units 7 [id number]- 97738 units 16 units 9 [id number] units 19 units 12 units>420 call MD28 units 21 units 14 unitsTest glucose within 30 minutes of insulin administration.Administer insulin within 15 minutes (before or after) of the patient starting to eat.For patients that are NPO, use theNPO (correction) scale to cover POC glucose at 08:00, 12:00, 17:00.
[facility] Medication administered onsite Miconazole Nitrate 0.02 MG/MG Topical Po wder miconazole (REMEDY PHYTOPLEX AF) 2 % powder 1 application miconazole (REMEDY PHYTOPLEX AF) 2 % pow tomas 1 application 04/12/2020 12:00:00 PM EST 1 {application} Topical a ctive 1 application, Topical, 2 times daily, First dose on Wed04/12/20 at 1200, Until Discontinued [facility] Medication administered onsite Insulin Glargine 100 UNT/ML Injectable S olution [Lantus] insulin glargine (LANTUS) injection 24 Units insulin glargine (LANTUS) injection 24 Units 04/12/2020 11:00:00 AM EST 24 U Subcutaneous aborted 24 Units, Subcutaneous, 2 Times Daily (Lantus), First dose on Wed04/12/[address] [facility] Medication administered onsite vancomycin (VANCOCIN) IVPB 1,000 mg [id number] 04/11/2020 08:00:0 0 PM EST 1000 mg Intravenous aborted Skin and Soft Tissue Infecti onSepsis 1,000 mg, Intravenous, Administer over 1 Hours, Every 12 hours (relative), First dose on Em 04/11/[address] [facility] Skin and Soft Tissue Infection Sepsis Medication administered onsite Insulin Glargine 100 UNT/ML Injectable S olution [Lantus] insulin glargine (LANTUS) injection 30 Units insulin glargine (LANTUS) injection 30 Units 04/11/2020 10:00:00 AM EST 30 U Subcutaneous aborted 30 Units, Subcutaneous, 2 Times Daily (Lantus), First dose on Wed04/11/[address] [facility] Medication administered onsite iopamidol (ISOVUE-370) 76 % 120 mL [id number] 04/11/2020 09:22:28 AM EST 120 mL Intravenous completed 120 mL, Intra venous, Once in imaging, contrast, Starting Wed04/11/20 at 0922, For [address] [facility] Medication administered onsite Aspirin 325 MG Oral Tablet aspirin tablet 325 mg aspirin tab let 325 mg 04/11/2020 09:00:00 AM EST 325 mg Oral active 325 mg, Oral, Daily, First dose on Wed04/11/[address] [facility] Medication administered onsite atorvastatin 80 MG Oral Tablet atorvastatin (LIPITOR) tablet 80 mg atorvastatin (LIPITOR) tablet 80 mg 04/11/2020 09:00:00 AM EST 80 mg Oral active 80 mg, Oral, Daily, First dose on Wed04/11/[address] [facility] Medication administered onsite Metoclopramide 10 MG Oral Tablet metoclopramide (MELVA N) tablet 10 mg metoclopramide (REGLAN) tablet 10 mg 04/11/2020 09:00:00 AM EST 10 mg Oral active 10 mg, Oral, 2 times daily, First dose on Em 04/11/[address] [facility] Medication administered onsite pantoprazole 40 MG Delayed Release Oral Tablet pantoprazole (PROTONIX) EC tablet 40 mg pantoprazole (PROTONIX) EC tablet 40 mg 04/11/2020 09:00:[address] 40 mg Oral active Gastroesophageal Reflux Diseas e 40 mg, Oral, Daily, Indications: Gastroesophageal Reflux Disease, First dose on Em 04/11/[address] [facility] Gastroesophageal Reflux Disease Medication administered onsite Lisinopril 5 MG Oral Tablet lisinopril (PRINIVIL,ZESTR IL) tablet 5 mg lisinopril (PRINIVIL,ZESTRIL) tablet 5 mg 04/11/2020 09:00:00 AM EST 5 mg O ral active 5 mg, Oral, Daily, First dose on Em 04/11/[address] [facility] Medication administered onsite Loratadine 10 MG Oral Tablet loratadine (CLARITIN) tab let 10 mg loratadine (CLARITIN) tablet 10 mg 04/11/2020 09:00:00 AM EST 10 mg Oral active 10 mg, Oral, Daily, First dose on Em 04/11/[address] [facility] Medication administered onsite clopidogrel 75 MG Oral Tablet clopidogrel (PLAVIX) tab let 75 mg clopidogrel (PLAVIX) tablet 75 mg 04/11/2020 09:00:00 AM EST 75 mg Oral active 75 mg, Oral, Daily, First dose on Em 04/11/[address] [facility] Medication administered onsite 24 HR Bupropion Hydrochloride 150 MG Ext ended Release Oral Tablet buPROPion (WELLBUTRIN XL) 24 hr tablet 150 mg buPROPion (WELLBUTRIN XL) 24 hr tablet 1 50 mg 04/11/2020 09:00:00 AM EST 150 mg Oral active 150 mg, Oral, Daily, First dose on Em 04/11/[address] [facility] Medication administered onsite Insulin Lispro 100 UNT/ML Injectable Kaushal ution insulin lispro (HumaLOG) injection 3-40 Units insulin lispro (HumaLOG) injection 3-40 Units 04/11/20 08:00:00 AM EST Subcutaneous aborted 3-4 0 Units, Subcutaneous, MEALSS, First dose on Wed04/11/20 at 0800
20 units Nutritional and Correction Insulin ScaleBlood Glucose (mg/dl) <70 start hypoglycemiaprotocolGlucoseEats >=50% Eats <50%Eats Nothing (mg/dl) of meal of mealor NPO70- 71247 units 7 units 0 -26302 units 10 units 0 [id number] units 13 units 3 ftvzo430- 66719 units 17 units 7 -08237 units 20 units 10 -23863 units 23 units 13 [id number]- 04239 units 27 units 17 units>420 call MD40 units 30 units 20 unitsTest glucose within 30 minutes of insulin administration.Administer insulin within 15 minutes (before or after) of the patient starting to eat.For patients that are NPO, use theNPO (correction) scale to cover POC glucose at 08:00, 12:00, 17:00.
[facility] Medication administered onsite Pentoxifylline 400 MG Extended Release O ral Tablet pentoxifylline (TRENTal) CR tablet 400 mg pentoxifylline (TRENTal) CR tablet 400 mg 04/11/2020 0 8:00:00 AM EST 400 mg Oral active 400 mg, Oral, 3 times daily with meals, First dose on Wed04/11/[address] [facility] Medication administered onsite ferrous sulfate 325 MG Oral Tablet ferrous sulfate tab let 325 mg ferrous sulfate tablet 325 mg 04/11/2020 07:00:00 AM EST 325 mg Oral act guevara 325 mg, Oral, Daily with breakfast, First dose on Wed04/11/[address] [facility] Medication administered onsite heparin (porcine) injection 5,000 Units [id number] 04/11/20 20 06:00:00 AM EST 5000 U Subcutaneous active 5,000 Units , Subcutaneous, Every 8 hours (scheduled), First dose on Wed04/11/20 at 0600
If platelet count is less than 100,000 or hematocrit is less than 30, or if there is a 5 point decrease in hematocrit, do not give the dose and call physician/designee.
[facility] Medication administered onsite sodium chloride 0.9% (NS) infusion 3613-1494-72 04/11/2020 06:00:00 A M EST Intravenous aborted at 125 mL/hr, Intravenous, Continuous, Starting Em 04/11/[address] [facility] Medication administered onsite menthol (HALLS) lozenge 1 lozenge 04/11/2020 05:17:[address] 1 {lozenge} Buccal active 1 lozenge, [place], As needed, sore throat, Starting Em 04/11/[address] [facility] Medication administered onsite fluconazole (DIFLUCAN) IVPB 400 mg [id number] 04/11/2020 02:00:00 AM EST 400 mg Intravenous completed Skin and Soft Tissue Infecti on 400 mg, Intravenous, Administer over 120 Minutes, Once, Me 04/11/20 at 0200, For 1 dose
For administration and preparation considerations, refer to Hazardous Drugs in the Workplace Policy on Intranet.
[facility] Skin and Soft Tissue Infection Medication administered onsite vancomycin in 500mL (VANCOCIN) IV 2,000 mg [id number] 04/11/2020 02:00:00 AM EST 2000 mg Intravenous completed 2, 000 mg, Intravenous, Administer over 120 Minutes, Once, Em 04/11/20 at 0200, For [address] [facility] Medication administered onsite normal saline flush 0.9 % injection 3 mL [id number] 04/11/2020 01:00:00 AM EST 3 mL Intravenous active 3 mL , Intravenous, Every 8 hours (scheduled), First dose on Em 04/11/20 at 0100
flush per protocol, D/C Main IV fluid if appropriate
[facility] Medication administered onsite Docusate Sodium 50 MG / sennosides, CORRECTION 8.6 MG Oral Tablet senna-docusate (PERICOLACE) 8.6-50 MG 2 tablet senna-docusate (PERICOLACE) 8.6-50 MG 2 tablet 04/11/2020 01:00:00 AM EST 2 {tbl} Oral active 2 tablet, Oral, Nightly, First dose on Em 04/11/20 at 0100
hold for loose stools
[facility] Medication administered onsite pregabalin (LYRICA) capsule 200 mg 04/11/2020 01:00:00 AM EST 200 mg Oral active 200 mg, Oral, 2 times daily, First dose on Em 04/11/20 at 0100, For [address] [facility] Medication administered onsite piperacillin-tazobactam (ZOSYN) 3.375 g in sodium chloride (NS) 0.9 % 100 mL IV pigtail 04/11/2020 01:00:00 AM EST 3.375 g Intravenous aborted Skin and Soft Tissue Infection 3.375 g, Intravenous, Admini ster over 30 Minutes, Every 6 hours (relative), First dose on Em 04/11/[address] [facility] Skin and Soft Tissue Infection Medication administered onsite dextrose 5 % and sodium chloride 0.45 % infusion [id number] 0 04/11/2020 01:00:00 AM EST Intravenous aborted at 125 mL/hr, Intravenous, Continuous, Starting Em 04/11/[address] [facility] Medication administered onsite Acetaminophen 325 MG / Oxycodone Hydroch loride 5 MG Oral Tablet oxyCODONE- acetaminophen (PERCOCET) 5-325 MG 2 tablet oxyCODONE-acetaminophen (PERCOCET) 5- 325 MG 2 tablet 04/11/2020 12:06:40 AM EST 2 {tbl} Oral a ctive 2 tablet, Oral, Every 4 hours PRN, severe pain (7-10), Starting Em 04/11/20 at 0006, For [address] [facility] Medication administered onsite Acetaminophen 325 MG / Oxycodone Hydroch loride 5 MG Oral Tablet oxyCODONE- acetaminophen (PERCOCET) 5-325 MG 1 tablet oxyCODONE-acetaminophen (PERCOCET) 5- 325 MG 1 tablet 04/11/2020 12:06:25 AM EST 1 {tbl} Oral a ctive 1 tablet, Oral, Every 4 hours PRN, moderate pain (4-6), Starting Em 04/11/20 at 0006, For [address] [facility] Medication administered onsite Docusate Sodium 100 MG Oral Capsule docusate sodium (C OLACE) capsule 200 mg docusate sodium (COLACE) capsule 200 mg 04/11/2020 12:02:05 AM EST 200 mg Oral active 200 mg, Oral, 2 times daily PRN, constipation, Starting Wed04/11/20 at 0002
hold for loose stools
[facility] Medication administered onsite Cyclobenzaprine hydrochloride 10 MG Oral Tablet cyclobenzaprine (FLEXERIL) tablet 5 mg cyclobenzaprine (FLEXERIL) tablet 5 mg 04/11/2020 12:02:04 AM ES T 5 mg Oral active 5 mg, Oral , 2 times daily PRN, muscle spasms, Starting Em 04/11/[address] [facility] Medication administered onsite Magnesium Hydroxide 80 MG/ML Oral Suspen roxanne magnesium hydroxide (MILK OF MAGNESIA) 400 MG/5ML suspension 30 mL magnesium hydroxide (MILK OF MAGNESIA) 4 00 MG/5ML suspension 30 mL 04/11/2020 12:00:00 AM EST 30 mL Oral active 30 mL, Oral, Daily PRN, constipation, Starting Em 04/11/20 at 0000
If senna- docusate is not effective
[facility] Medication administered onsite Albuterol 0.83 MG/ML Inhalant Solution a lbuterol (PROVENTIL) nebulizer solution 2.5 mg albuterol (PROVENTIL) nebulizer solution 2.5 mg 2019 11:58:29 PM EST 2.5 mg active 2.5 mg, Nebulization, RT 4 times daily as needed, wheezing, shortness of breath, Starting Wed04/10/[address] [facility] Medication administered onsite Acetaminophen 325 MG Oral Tablet acetaminophen (TYLENO L) 325 MG tablet 650 mg acetaminophen (TYLENOL) 325 MG tablet 650 mg 04/10/2020 11:50:38 PM EST 650 mg Oral active 650 mg, Or al, Every 4 hours PRN, mild pain (1-3), headaches, Starting Wed04/10/20 at 2350
"Maximum dose of acetaminophen is 4,000 mg from all sources in 24 hours."
[facility] Medication administered onsite Bisacodyl 10 MG Rectal Suppository bisacodyl (DULCOLAX ) suppository 10 mg bisacodyl (DULCOLAX) suppository 10 mg 04/10/2020 11:50:31 PM EST 10 mg Rectal active 10 mg, Rectal, Daily PRN, constipation, Starting Wed04/10/20 at 2350
Hold for BM.If senna-docusate and milk of magnesia are not effective
[facility] Medication administered onsite Mineral Oil 1000 MG/ML Enema mineral oil enema 1 enema mineral oil enema 1 enema 04/10/2020 11:50:31 PM EST 1 {enema} Rectal active 1 enema, Rectal, Daily PRN, constipation, unrelieved by MOM/bisacodyl/senna-docusate, Starting Wed04/10/20 at 2350
hold for loose stools
[facility] Medication administered onsite 2 ML Metoclopramide 5 MG/ML Prefilled Sy ringe metoclopramide (REGLAN) injection 10 mg metoclopramide (REGLAN) injection 10 mg 04/10/2020 11:50:[address] 10 mg Intravenous active 10 mg, I ntravenous, Every 6 hours PRN, for Nausea/Vomiting not relieved by zofran, Starting Wed04/10/[address] [facility] Medication administered onsite ondansetron (ZOFRAN) injection 4 mg [id number] 04/10/2020 11:50:2 7 PM EST 4 mg Intravenous active 4 mg, In travenous, Every 4 hours PRN, nausea, vomiting, Starting Wed04/10/[address] [facility] Medication administered onsite 5-325 mg 04/10/2020 12:00:00 AM EST tablet 30 TAKE ONE TABLET BY MOUTH EVERY 4 HOURS NEEDED FOR PAIN MAXIMUM DAILY DOSE = SIX TABLETS TAKE ONE TABLET BY MOUTH EVERY 4 HOURS NEEDED FOR PAIN MAXIMUM DAILY DOSE = SIX TABLETS SOLD: 04/10/2020 [employer] pantoprazole 40 MG Delayed Release Oral Tablet PANTOPRAZOLE SODIUM 04/10/2020 12:00:00 AM EST tablet,delayed release (DR/EC) 30 T FITO ONE TABLET BY MOUTH EVERY DAY TAKE ONE TABLET BY MOUTH EVERY DAY SOLD: 04/14/2020 [facility] pantoprazole 40 MG Delayed Release Oral Tablet [Protonix] Pr otonix 04/10/2020 12:00:00 AM EST ORAL active [place] ([facility]) 5-325 mg 04/04/2020 12:00:00 AM EST tablet 14 TAKE ONE TABLET BY MOUTH EVERY 12 HOURS NEEDED FOR PAIN MAXIMUM DAILY DOSE = 2 TAKE ONE TABLET BY MOUTH EVERY 12 HOURS NEEDED FOR PAIN MAXIMUM DAILY DOSE = 2 SOLD: 04/04/2020 [facility] Escitalopram Oxalate 20 MG Escitalopram Oxalate 04/03/2020 12:00:00 A M EST completed NETSMART ( [facility]) 4.5 mg/0.5 mL 04/02/2020 12:00:00 AM EST pen injector 6 INJECT 1 SUBCUTANEOUSLY ONCE A WEEK INJECT 1 SUBCUTANEOUSLY ONCE A WEEK SOLD: 04/10/2020 [facility] TRULICITY 4.5 MG/0.5ML SOPN [id number] 04/02/2020 12:00:00 AM EST active INJECT 1 SUBCUTANEOUSLY ONCE A W [place] [facility] 75 mg 04/02/2020 12:00:00 AM EST tablet 30 TAKE ONE TABLET BY MOUTH EVERY DAY TAKE ONE TABLET BY MOUTH EVERY DAY SOLD: 04/10/2020 [facility] 75 mg 04/02/2020 12:00:00 AM EST tablet 30 TAKE ONE TABLET BY MOUTH EVERY DAY TAKE ONE TABLET BY MOUTH EVERY DAY SOLD: 05/09/2020 [facility] Nystatin 100 UNT/MG Topical Powder 100,000 unit/gram NYSTATI N 04/01/2020 12:00:00 AM EST powder 15 APPLY TO AFFECTE D AREA(S) UNDER ABDOMINAL FOLD TWO TIMES A DAY NEEDED FOR RASH APPLY TO AFFECTED AREA(S) UNDER ABDOMINA L FOLD TWO TIMES A DAY NEEDED FOR RASH SOLD: 04/29/2020 [facility] Fluconazole 200 MG Fluconazole 04/01/2020 12:00:00 AM EST completed NETSMART ([facility]) Escitalopram 20 MG Oral Tablet escitalopram (LEXAPRO) 20 MG tablet escitalopram (LEXAPRO) 20 MG tablet 04/01/2020 12:00:00 AM EST 20 mg Oral active Take [address] mg by mouth daily [facility] Escitalopram 20 MG Oral Tablet ESCITALOPRAM OXALATE [...] tablet 03/28/2020 12:00:[address] [facility] 60 mg 03/25/2020 12:00:00 AM EST capsule,delayed [...] FOR PAIN MAXIMUM DAILY DOSE [address] [facility] 325 mg (65 mg iron) 03/21/2020 12:00:00 AM EST tablet 30 TAKE ONE TABLET BY MOUTH EVERY DAY ON AN EMPTY STOMACH WITH VITAMIN CAPSULE TAKE ONE TABLET BY MOUTH EVERY DAY ON AN EMPTY STOMACH WITH VITAMIN CAPSULE SOLD: 05/16/2020 [facility] Acetaminophen 325 MG / Oxycodone Hydrochloride 5 MG Or al Tablet Oxycodone-Acetaminophen 03/21/2020 12:00:00 AM EST ORAL active [facility] ([facility]) 200 unit/mL (3 mL) 03/20/2020 12:00:00 AM EST insulin pen 27 INJECT 50 UNITS UNDER THE SKIN TWO TIMES A DAY INJECT 50 UNITS UNDER THE SKIN TWO TIMES A DAY SOLD: 05/12/2020 [facility] 200 unit/mL (3 mL) 03/20/2020 12:00:00 AM [...] active Take [address] [facility] 325 mg 03/15/2020 12:00:00 AM EST tablet [...] 12:00:00 AM EST active [facility] ([facility] Sulfamethoxazole 800 MG / Trimethoprim 160 MG Oral Tab let 800-160 mg SULFAMETHOXAZOLE/TRIMETHOPRIM 03/02/2020 12:00:00 AM EST tablet 20 TAKE ONE TABLET BY MOUTH EVERY 12 HOURS FOR 10 DAYS TAKE ONE TABLET BY MOUTH EVERY 12 HOURS FOR 10 DAYS SOLD: 03/03/2020 [facility] Bactrim DS 800-160 MG Bactrim DS 03/02/2020 12:00:00 AM EST completed [facility] ([facility]) 10 mg 02/28/2020 12:00:00 AM EST tablet 30 TAKE ONE TABLET BY MOUTH EVERY DAY TAKE ONE TABLET BY MOUTH EVERY DAY SOLD: 04/21/2020 [facility] Pregabalin 200 MG Pregabalin 02/28/2020 12:00:00 AM EST completed [facility]SM[facility] ([facility] ) 10 mg 02/28/2020 12:00:00 AM EST tablet [...] DAILY DOSE = EIGHT TABLETS SOLD: 02/28/2020 [facility] 10 mg 02/28/2020 12:00:00 AM EST tablet 30 TAKE ONE TABLET BY MOUTH EVERY DAY TAKE ONE TABLET BY MOUTH EVERY DAY SOLD: 03/27/2020 [facility] 200 mg 02/27/2020 12:00:00 AM EST capsule 180 TAKE ONE CAPSULE BY MOUTH TWICE A DAY MAXIMUM DAILY DOSE = 2 CAPSULES TAKE ONE CAPSULE BY MOUTH TWICE A DAY MAXIMUM DAILY DOSE = 2 CAPSULES SOLD: 02/27/2020 [facility] pregabalin 200 MG Oral Capsule pregabalin (LYRICA) 200 MG capsule pregabalin (LYRICA) 200 MG capsule 02/27/2020 12:00:00 AM EST active TAKE ONE CAPSULE BY MOUTH TWICE A DAY MAXIMUM DAILY DOSE [address] [facility] Atorvastatin Calcium 80 MG Atorvastatin Calcium 02/23/2020 12:00:00 A M EST completed [facility] ( [facility]) Acetaminophen 8 Hour 650 MG Acetaminophen 8 Hour 02/23/2020 12:00:00 AM EST completed [facility] ( [facility]) Benadryl Allergy 25 MG Benadryl Allergy 02/23/2020 12:00:00 AM EST completed [facility] ([facility]) Ciprofloxacin HCl 250 MG Ciprofloxacin HCl 02/23/2020 12:00:[address] 3.0 {tablet} completed [facility] ([facility]) MetroNIDAZOLE 250 MG MetroNIDAZOLE 02/23/2020 12:00:00 AM EST 2.0 {tablet} completed [facility] ([facility]) 5-325 mg 02/22/2020 12:00:00 AM EST tablet 14 TAKE ONE TABLET BY MOUTH EVERY 12 HOURS NEEDED FOR PAIN MAXIMUM DAILY DOSE = TWO TABLETS TAKE ONE TABLET BY MOUTH EVERY 12 HOURS NEEDED FOR PAIN MAXIMUM DAILY DOSE = TWO TABLETS SOLD: 02/23/2020 [facility] 150 mg 02/21/2020 12:00:00 AM EST capsule 60 TAKE ONE CAPSULE BY MOUTH TWICE A DAY MAXIMUM DAILY DOSE = 2 TAKE ONE CAPSULE BY MOUTH TWICE A DAY MA XIMUM DAILY DOSE = 2 SOLD: 02/22/2020 [facility] [...] (two) times a day for [address] [facility] Metronidazole 250 MG Oral Tablet metroNIDAZOLE (FLAGYL ) 250 MG tablet metroNIDAZOLE (FLAGYL) 250 MG tablet 02/20/2020 12:00:00 AM EST 500 m g Oral active Take 2 tablets ( 500 mg total) by mouth 3 (three) times a day for [address] [facility] Insulin Lispro 100 UNT/ML Injectable Kaushal ution insulin lispro (HumaLOG) injection 3-40 Units insulin lispro (HumaLOG) injection 3-40 Units 02/19/20 05:00:00 PM EST Subcutaneous active 3-4 0 Units, Subcutaneous, MEALSS, First dose on Wed02/19/20 at 1700
20 units Nutritional and Correction Insulin ScaleBlood Glucose (mg/dl) <70 start hypoglycemiaprotocolGlucoseEats >=50% Eats <50%Eats Nothing (mg/dl) of meal of mealor NPO70- 34409 units 7 units 0 [id number] units 10 units 0 [id number] units 13 units 3 [id number]- 88233 units 17 units 7 [id number] units 20 units 10 -16507 units 23 units 13 [id number]- 97476 units 27 units 17 units>420 call MD40 units 30 units 20 unitsTest glucose within 30 minutes of insulin administration.Administer insulin within 15 minutes (before or after) of the patient starting to eat.For patients that are NPO, use theNPO (correction) scale to cover POC glucose at 08:00, 12:00, 17:00.
[facility] Medication administered onsite Acetaminophen 325 MG / Oxycodone Hydroch loride 5 MG Oral Tablet oxyCODONE- acetaminophen (PERCOCET) 5-325 MG 1 tablet oxyCODONE-acetaminophen (PERCOCET) 5- 325 MG 1 tablet 02/19/2020 04:00:00 PM EST 1 {tbl} Oral c ompleted 1 tablet, Oral, Once, Wed02/19/20 at 1600, For [address] [facility] Medication administered onsite Insulin Glargine 100 UNT/ML Injectable S olution [Lantus] insulin glargine (LANTUS) injection 30 Units insulin glargine (LANTUS) injection 30 Units 02/19/2020 01:00:00 PM EST 30 U Subcutaneous active 30 Units, Subcutaneous, 2 Times Daily (Lantus), First dose on Wed02/19/20 at 1300
Basal Insulin (Lantus) Adjustments based on AM Blood GlucoseBlood GlucoseAdjustmentLess than 70 mg/dl Nursing to initiate hypoglycemia to 100 mg/dl Pharmacy to decrease total daily d ose by 20%101 to 200 mg/dl No Change
[facility] Medication administered onsite meropenem (MERREM) 2 g [...] phone call been made for approval? No [facility] Skin and Soft Tissue Infection Medication administered [...] mealor NPO70- 1201 units 1 units 0 -6295 units 1 units 0 [id number]- 2202 units 1 units 0 -2661 units 2 units 1 - 3203 units 2 units 1 [id number] units 2 units 1 [id number] units 3 units 2 units>420 call MD4 units 3 units 2 unitsTest glucose within 30 minutes of insulin administration.Administer insulin within 15 minutes (before or after) of the patient starting to eat.For patients that are NPO, use theNPO (correction) scale to cover POC glucose at 08:00, 12:00, 17:00.
[facility] Medication administered onsite ferrous sulfate 325 MG Oral Tablet ferrous sulfate tab let 325 mg ferrous sulfate tablet 325 mg 02/19/2020 07:00:00 AM EST 325 mg Oral act guevara 325 mg, Oral, Daily with breakfast, First dose on Wed02/19/[address] [facility] Medication administered onsite pregabalin 75 MG Oral Capsule pregabalin (LYRICA) caps ule 150 mg pregabalin (LYRICA) capsule 150 mg 02/18/2020 09:00:00 PM EST 150 mg Oral active 150 mg, Oral, 2 times daily, First dose on 02/18/20 at 2100, For [address] [facility] Medication administered onsite heparin (porcine) injection 5,000 Units [id number] 02/18/20 09:00:00 PM EST 5000 U Subcutaneous active 5,000 Units , Subcutaneous, Every 12 hours (scheduled), First dose on 02/18/20 at 2100
If platelet count is less than 100,000 or hematocrit is less than 25, or if there is a 5 point decrease in hematocrit, do not give the dose and call physician/designee.
[facility] Medication administered onsite Clotrimazole 10 MG/ML Topical Cream clot rimazole (LOTRIMIN) 1 % cream 1 application clotrimazole (LOTRIMIN) 1 % cream 1 application 2019 09:00:00 PM EST 1 {application} Topical active 1 application, Topical, 2 times daily, First dose on 02/18/20 at 2100, Until Discontinued [facility] Medication administered onsite Metoclopramide 10 MG Oral Tablet metoclopramide (MELVA N) tablet 10 mg metoclopramide (REGLAN) tablet 10 mg 02/18/2020 09:00:00 PM EST 10 mg Oral active 10 mg, Oral, 2 times daily, First dose on 02/18/[address] [facility] Medication administered onsite 60 ACTUAT formoterol fumarate 0.005 MG/A CTUAT / mometasone furoate 0.2 MG/ACTUAT Metered Dose Inhaler mometasone-formoterol (DULERA) 200-5 MCG/ACT inhaler 2 puff mometasone-formoterol (DULERA) 200-5 MCG/ACT inhaler 2 puff 02/18/2020 08:00:00 PM EST 2 {puff} Inhalation active 2 puff, Inhalation, 2 times daily, First dose on 02/18/[address] [facility] Medication administered onsite Lisinopril 5 MG Oral Tablet lisinopril (PRINIVIL,ZESTR IL) tablet 5 mg lisinopril (PRINIVIL,ZESTRIL) tablet 5 mg 02/18/2020 06:00:00 PM EST 5 mg O ral active 5 mg, Oral, Daily, First dose on 02/18/[address] [facility] Medication administered onsite meropenem (MERREM) injection 2 g [id number] 02/18/2020 06:00:00 PM EST 2 g Intravenous aborted Complicated Skin & Skin Structure I nfection 2 g, Intravenous, Every 8 hours (relative), Indications: Complicated Skin & Skin Structure Infection, First dose on 02/18/20 at 1800
Reconstitute with 20 ml STERILE WATER for injection. Administer IV push over 5 minutes. Use within 1 hour of reconstitution.
[facility] Complicated Skin & Skin Structure Infect ion Medication administered onsite pantoprazole 40 MG Delayed Release Oral Tablet pantoprazole (PROTONIX) EC tablet 40 mg pantoprazole (PROTONIX) EC tablet 40 mg 02/18/2020 06:00:[address] 40 mg Oral active Gastroesophageal Reflux Diseas e 40 mg, Oral, Daily, Indications: Gastroesophageal Reflux Disease, First dose on 02/18/[address] [facility] Gastroesophageal Reflux Disease Medication administered onsite POLYETHYLENE GLYCOL 3350 142 MG/ML Oral Solution polyethylene glycol (GLYCOLAX) packet 17 g polyethylene glycol (GLYCOLAX) packet 17 g 02/18/2020 06:00:00 PM EST 17 g Oral active 17 g, Or al, Daily, First dose on 02/18/20 at 1800
hold for loose stools
[facility] Medication administered onsite Pentoxifylline 400 MG Extended Release O ral Tablet pentoxifylline (TRENTal) CR tablet 400 mg pentoxifylline (TRENTal) CR tablet 400 mg 02/18/2020 0 6:00:00 PM EST 400 mg Oral active 400 mg, Oral, 3 times daily with meals, First dose on 02/18/[address] [facility] Medication administered onsite Bisacodyl 10 MG Rectal Suppository bisacodyl (DULCOLAX ) suppository 10 mg bisacodyl (DULCOLAX) suppository 10 mg 02/18/2020 06:00:00 PM EST 10 mg Rectal active 10 mg, Rectal, Daily, First dose on 02/18/20 at 1800
hold for loose stools
[facility] Medication administered onsite atorvastatin 80 MG Oral Tablet atorvastatin (LIPITOR) tablet 80 mg atorvastatin (LIPITOR) tablet 80 mg 02/18/2020 06:00:00 PM EST 80 mg Oral active 80 mg, Oral, Daily, First dose on 02/18/[address] [facility] Medication administered onsite normal saline flush 0.9 % injection 10 mL [id number] 02/18/2020 06:00:00 PM EST 10 mL Intravenous active 10 m L, Intravenous, Every 8 hours (scheduled), First dose on 02/18/20 at 1800
Flush with 10 mL NS prior and post medication administration.Flush with 10 mL NS prior to blood specimen collection and flush with 20 mL to clear solution/drug post blood specimen collection
[facility] Medication administered onsite DAILY CHE (THERAGRAN) 1 tablet [id number] 02/18/2020 06:00:00 PM EST 1 {tbl} Oral active 1 tablet, Oral, Daily, First dose on 02/18/[address] [facility] Medication administered onsite Escitalopram 10 MG Oral Tablet escitalopram (LEXAPRO) tablet 10 mg escitalopram (LEXAPRO) tablet 10 mg 02/18/2020 06:00:00 PM EST 10 mg Oral active 10 mg, Oral, Daily, First dose on 02/18/[address] [facility] Medication administered onsite 24 HR Bupropion Hydrochloride 150 MG Ext ended Release Oral Tablet buPROPion (WELLBUTRIN XL) 24 hr tablet 150 mg buPROPion (WELLBUTRIN XL) 24 hr tablet 1 50 mg 02/18/2020 06:00:00 PM EST 150 mg Oral active 150 mg, Oral, Daily, First dose on 02/18/[address] [facility] Medication administered onsite clopidogrel 75 MG Oral Tablet clopidogrel (PLAVIX) tab let 75 mg clopidogrel (PLAVIX) tablet 75 mg 02/18/2020 06:00:00 PM EST 75 mg Oral active 75 mg, Oral, Daily, First dose on 02/18/[address] [facility] Medication administered onsite Acetaminophen 325 MG / Oxycodone Hydroch loride 5 MG Oral Tablet oxyCODONE- acetaminophen (PERCOCET) 5-325 MG 1 tablet oxyCODONE-acetaminophen (PERCOCET) 5- 325 MG 1 tablet 02/18/2020 05:13:38 PM EST 1 {tbl} Oral a ctive 1 tablet, Oral, Every 4 hours PRN, moderate pain (4-6), Starting 02/18/20 at 1713, For [address] [facility] Medication administered onsite Docusate Sodium 100 MG Oral Capsule docusate sodium (C OLACE) capsule 200 mg docusate sodium (COLACE) capsule 200 mg 02/18/2020 05:11:55 PM EST 200 mg Oral active 200 mg, Oral, 2 times daily PRN, constipation, Starting 02/18/20 at 1711
hold for loose stools
[facility] Medication administered onsite Cyclobenzaprine hydrochloride 10 MG Oral Tablet cyclobenzaprine (FLEXERIL) tablet 5 mg cyclobenzaprine (FLEXERIL) tablet 5 mg 02/18/2020 05:11:52 PM ES T 5 mg Oral active 5 mg, Oral , 2 times daily PRN, muscle spasms, Starting 02/18/[address] [facility] Medication administered onsite Albuterol 0.83 MG/ML Inhalant Solution a lbuterol (PROVENTIL) nebulizer solution 2.5 mg albuterol (PROVENTIL) nebulizer solution 2.5 mg 2019 05:11:19 PM EST 2.5 mg active 2.5 mg, Nebulization, RT every 4 hours as needed, wheezing, shortness of breath, Starting 02/18/[address] [facility] Medication administered onsite 17 gram/dose 02/17/2020 12:00:00 [...] [facility] DAILY CHE (THERAGRAN) per tablet [id number] 02/17/2020 12:00:00 AM EDT 1 {tbl} Oral aborted Take 1 tablet by mouth d [facility] Meropenem 1 GM Meropenem 02/16/2020 01:00:00 AM EDT 2.0 {gm} completed [facility] ([facility]) Nystatin Powder Nystatin Powder 02/16/2020 01:00:00 AM EDT 0 {un it} completed [facility] ([facility]) Trulicity 0.75 MG/0.5ML Trulicity 02/16/2020 01:00:00 AM EDT 1.5 {mg} completed [facility] ([facility]) Tresiba FlexTouch 100 UNIT/ML Tresiba FlexTouch 02/16/2020 01:00:00 AM EDT 50.0 {Units} completed [facility] ([facility]) Albuterol Sulfate HFA 108 (90 Base) MCG/ACT Albuterol Sulfat e HFA 02/16/2020 01:00:00 AM EDT completed [facility] ([facility]) Admelog SoloStar 100 UNIT/ML Admelog SoloStar 02/16/2020 01:00:00 AM E DT completed [facility] ([facility]) Atorvastatin Calcium 80 MG Atorvastatin Calcium 02/16/2020 01:00:00 A M EDT completed [facility] ( [facility]) Breo Ellipta 100-25 MCG/INH Breo Ellipta 02/16/2020 01:00:00 AM EDT completed [facility] ([facility]) Aspirin Aspirin 02/16/2020 01:00:00 AM EDT 0 {mg} compl eted [facility] ([facility]) BuPROPion HBr ER 522 MG BuPROPion HBr ER 02/16/2020 01:00:00 AM EDT 150.0 {mg} completed [facility] ([facility]) MiraLax 17 GM MiraLax 02/16/2020 01:00:00 AM EDT c ompleted [facility] ([facility]) Oxycodone & Tylenol Oxycodone & Tylenol 02/16/2020 01:00:00 AM EDT 0 {mg} completed [facility] ([facility]) Bisacodyl Supp. Bisacodyl Supp. 02/16/2020 01:00:00 AM EDT 0 {mg } completed [facility] ([facility]) Multivitamin Multivitamin 02/16/2020 01:00:00 AM EDT 0 {mg} completed [facility] ([facility]) Normal Saline Flush 0.9 % Normal Saline Flush 02/16/2020 01:00:00 AM E DT completed [facility] ([facility]) Metoclopramide Metoclopramide 02/16/2020 01:00:00 AM EDT 0 {mg} completed [facility] ([facility]) Loratadine 10 MG Loratadine 02/16/2020 01:00:00 AM EDT completed [facility] ([facility] ) Lisinopril 5 MG Lisinopril 02/16/2020 01:00:00 AM EDT completed [facility] ([facility]) Ferrous Sulfate Ferrous Sulfate 02/16/2020 01:00:00 AM EDT 0 {mg } completed [facility] ([facility]) Escitalopram Oxalate 10 MG Escitalopram Oxalate 02/16/2020 01:00:00 A M EDT completed [facility] ( [facility]) Cyclobenzaprine Cyclobenzaprine 02/16/2020 01:00:00 AM EDT 0 {mg } completed [facility] ([facility]) Docusate Sodium Docusate Sodium 02/16/2020 01:00:00 AM EDT 0 {mg } completed [facility] ([facility]) Omeprazole 40 MG Omeprazole 02/16/2020 01:00:00 AM EDT completed [facility] ([facility] ) Ondansetron HCl 4 MG Ondansetron HCl 02/16/2020 01:00:00 AM EDT completed [facility] ([facility]) Heparin Heparin 02/16/2020 01:00:00 AM EDT 0 {ml} compl eted [facility]SM[facility] ([facility]) Steglatro 15 MG Steglatro 02/16/2020 01:00:00 AM EDT completed [facility] ([facility]) Clopidogrel Bisulfate 75 MG Clopidogrel Bisulfate 02/16/2020 01:00: 00 AM EDT completed [facility] ([facility]) Pentoxifylline ER 400 MG Pentoxifylline ER 02/16/2020 01:00:00 AM E DT 400.0 {mg} completed [facility] ([facility]) Pregabalin 150 MG Pregabalin 02/16/2020 01:00:00 AM EDT completed [facility] ([facility] ) meropenem (MERREM) 1 g injection [id number] 02/16/2020 12:00:00 AM E DT aborted Infuse 2gm iv every 8 myranda rs daily until 03/21/20 [facility] 3 ML heparin sodium, porcine 100 UNT/ML Prefilled Syringe heparin 100 UNIT/ML SOLN heparin 100 UNIT/ML SOLN 02/16/2020 12:00:00 AM EDT aborted Infuse 5 ml After dose and as needed to red lumen if applicable [facility] Sodium Chloride Flush (NORMAL SALINE FLUSH) 0.9 % SOLN injec tion [id number] 02/16/2020 12:00:00 AM EDT aborted Infuse 10 ml before and after dose and prn [facility] Chlorhexidine Gluconate (BIOPATCH PROTECTIVE DISK/CHG) (Dres chanel) [facility] [id number] 02/16/2020 12:00:00 AM EDT aborted Apply one patch weekly with dressing change and prn [facility] 10 mg 02/16/2020 12:00:00 AM EDT suppository 12 INSERT ONE SUPPOSITORY RECTALLY EVERY DAY INSERT ONE SUPPOSITORY RECTALLY EVERY DAY SOLD: 02/16/2020 [employer] meropenem (MERREM) 1 g injection [id number] 02/16/2020 12:00:00 AM E DT active Infuse 2gm iv every 8 myranda rs daily until 03/21/20 [facility] 400 mcg 02/16/2020 12:00:00 AM EDT tablet 30 TAKE ONE TABLET BY MOUTH EVERY DAY TAKE ONE TABLET BY MOUTH EVERY DAY SOLD: 02/16/2020 [facility] 5-325 mg 02/16/2020 12:00:00 AM EDT tablet 30 TAKE ONE TO TWO TABLETS BY MOUTH EVERY 4 HOURS NEEDED MAXIMUM DAILY DOSE = 8 TABLETS TAKE ONE TO TWO TABLETS BY MOUTH EVERY 4 HOURS NEEDED MAXIMUM DAILY DOSE = 8 TABLETS SOLD: 02/16/2020 [employer] Bisacodyl 10 MG Rectal Suppository Bisacodyl Laxative [...] EDT ORAL active [facility] ([facility]) 400 mcg 02/16/2020 12:00:00 AM EDT tablet 30 TAKE ONE TABLET BY MOUTH EVERY DAY TAKE ONE TABLET BY MOUTH EVERY DAY SOLD: 03/15/2020 [facility] 325 mg 02/16/2020 12:00:00 AM EDT tablet,delayed release (DR/EC) 30 TAKE 1 TABLET BY MOUTH ONCE TAKE 1 TABLET BY MOUTH ONCE SOLD: 02/16/2020 [facility] Sodium Chloride Flush (NORMAL SALINE FLUSH) 0.9 % SOLN injurbano timonica [id number] 02/16/2020 12:00:00 AM EDT aborted Infuse 10 ml before and after dose and prn [facility] 3 ML heparin sodium, porcine 100 UNT/ML Prefilled Syringe heparin 100 UNIT/ML SOLN heparin 100 UNIT/ML SOLN 02/16/2020 12:00:00 AM EDT active Infuse 5 ml After dose and as needed to red lumen if applicable [facility] Chlorhexidine Gluconate (BIOPATCH PROTECTIVE DISK/CHG) (Geovanna buchanan) [facility] [id number] 02/16/2020 12:00:00 AM EDT active Apply one patch weekly with dressing change and prn [facility] Aspirin 325 MG Oral Tablet ASPIRIN ADULT 325 MG tablet ASPIRIN ADULT 325 MG tablet 02/16/2020 12:00:00 AM EDT 325 mg Oral active Take 1 tablet (325 mg total) by mouth once for [address] [facility] POLYETHYLENE GLYCOL 3350 142 MG/ML Oral Solution polyethylene glycol (GLYCOLAX) 17 g packet polyethylene glycol (GLYCOLAX) 17 g packet 02/16/2020 12:00:00 AM EDT 17 g Oral aborted Take 17 g by russel th daily [facility] Acetaminophen 325 MG / Oxycodone Hydroch loride 5 MG Oral Tablet oxyCODONE- acetaminophen (PERCOCET) 5-325 MG per tablet oxyCODONE-acetaminophen (PERCOCET) 5-325 MG per tablet 02/16/2020 12:00:00 AM EDT Oral active Take 1-2 tablets by mouth every 4 (four) hours as needed Max Daily Amount: [address] [facility] meropenem 2 g in sodium chloride 0.9 % 100 mL IVPB 02/16/2020 12:00:00 AM EDT 2 g Intravenous aborted Osteomyelitis Infuse 2 g into a venous catheter every 8 (eight) hours [facility] Osteomyelitis Bisacodyl 10 MG Rectal Suppository bisacodyl (DULCOLAX ) 10 MG suppository bisacodyl (DULCOLAX) 10 MG suppository 02/16/2020 12:00:00 AM EDT 10 mg Rectal aborted Insert 1 suppository (10 mg total) into the rectum daily [facility] Insulin Glargine 100 UNT/ML Injectable S olution [Lantus] insulin glargine (LANTUS) injection 30 Units insulin glargine (LANTUS) injection 30 Units 02/15/2020 09:00:00 PM EDT 30 U Subcutaneous active 30 Units, Subcutaneous, 2 Times Daily (Lantus), First dose on Em 02/15/20 at 2100
Basal Insulin (Lantus) Adjustments based on AM Blood GlucoseBlood GlucoseAdjustmentLess than 70 mg/dl Nursing to initiate hypoglycemia [id number] to 100 mg/dl Pharmacy to decrease total daily d ose by 20%101 to 200 mg/dl No Change
[facility] Medication administered onsite Insulin Lispro 100 UNT/ML Injectable Kaushal ution insulin lispro (HumaLOG) injection 3-40 Units insulin lispro (HumaLOG) injection 3-40 Units 02/15/20 05:00:00 PM EDT Subcutaneous active 3-4 0 Units, Subcutaneous, MEALSS, First dose on Em 02/15/20 at 1700
20 units Nutritional and Correction Insulin ScaleBlood Glucose (mg/dl) <70 start hypoglycemiaprotocolGlucoseEats >=50% Eats <50%Eats Nothing (mg/dl) of meal of mealor NPO70- 57670 units 7 units 0 [id number] units 10 units 0 [id number] units 13 units 3 [id number]- 52593 units 17 units 7 [id number] units 20 units 10 [id number] units 23 units 13 [id number]- 94931 units 27 units 17 units>420 call MD40 units 30 units 20 unitsTest glucose within 30 minutes of insulin administration.Administer insulin within 15 minutes (before or after) of the patient starting to eat.For patients that are NPO, use theNPO (correction) scale to cover POC glucose at 08:00, 12:00, 17:00.
[facility] Medication administered onsite 5-325 mg 02/15/2020 12:00:00 AM EDT tablet 14 TAKE ONE TABLET BY MOUTH EVERY 12 HOURS NEEDED FOR PAIN MAXIMUM DAILY DOSE = 2 TAKE TABLETS TAKE ONE TABLET BY MOUTH EVERY 12 HOURS NEEDED FOR PAIN MAXIMUM DAILY DOSE = 2 TAKE TABLETS SOLD: 02/15/2020 [employer] Insulin Glargine 100 UNT/ML Injectable S olution [Lantus] insulin glargine (LANTUS) injection 26 Units insulin glargine (LANTUS) injection 26 Units 02/14/2020 09:00:00 PM EDT 26 U Subcutaneous aborted 26 Units, Subcutaneous, 2 Times Daily (Lantus), First dose on Wed02/14/20 at 2100
Basal Insulin (Lantus) Adjustments based on AM Blood GlucoseBlood GlucoseAdjustmentLess than 70 mg/dl Nursing to initiate hypoglycemia [id number] to 100 mg/dl Pharmacy to decrease total daily d ose by 20%101 to 200 mg/dl No Change
[facility] Medication administered onsite Morphine Sulfate (PF) injection 2 mg [id number] 02/13/2020 06:36: 23 PM EDT 2 mg Intravenous active 2 mg, In travenous, Every 2 hour PRN, severe pain (7-10), Starting Wed02/13/20 at 1836, For [address] [facility] Medication administered onsite meropenem (MERREM) 2 g in sodium chloride (NS) 0.9 % 100 mL IVPB 02/13/2020 02:00:00 PM EDT 2 g Intravenous active Osteomyeliti s 2 g, Intravenous, Every 8 hours (relative), First dose on Wed02/13/20 at 1400
This anti- infective requires approval from infectious disease: Please indicate approving infectious disease physician: Dr. Levine [facility] Osteomyelitis Medication administered onsite Morphine Sulfate (PF) injection 2 mg [id number] 02/13/2020 12:00: 00 AM EDT 2 mg Intravenous completed 2 mg, In travenous, Once, Wed02/13/20 at 0000, For [address] [facility] Medication administered onsite dextrose 5 % and sodium chloride 0.45 % infusion [id number] 0 02/12/2020 07:00:00 PM EDT Intravenous aborted at 75 mL/hr, Intravenous, Continuous, Starting Wed02/12/20 at 1900
Saline lock with good PO
[facility] Medication administered onsite Morphine Sulfate (PF) injection 2 mg [id number] 02/12/2020 06:31: 18 PM EDT 2 mg Intravenous completed 2 mg, In travenous, Every 2 hour PRN, severe pain (7-10), severe pain if oral ineffective after 1 hour, Starting Wed02/12/20 at 1831, For [address] [facility] Medication administered onsite fentaNYL Citrate (PF) (SUBLIMAZE) injection 25 mcg [id number] 02/12/2020 05:33:37 PM EDT 25 ug Intravenous aborted 25 mcg, Intravenous, Every 5 min PRN, moderate pain (4 to 6), max 8 doses, Starting Wed02/12/20 at 1733, For 2 hours, PACU (only) [facility] Medication administered onsite Ceftazidime 1000 MG Injection cefTAZidime (FORTAZ) inj ection 2 g cefTAZidime (FORTAZ) injection 2 g 02/12/2020 04:00:00 PM EDT 2 g Intravenous aborted Osteomyelitis 2 g, Intravenous, Every 8 ho urs (relative), First dose on Wed02/12/20 at 1600
Reconstitute with 10 ml STERILE WATER for injection. Administer IV push over 3 minutes. Use within 1 hour of reconstitution
[facility] Osteomyelitis Medication administered onsite dextrose 5 % and sodium chloride 0.45 % infusion [id number] 0 02/12/2020 12:00:00 AM EDT Intravenous aborted at 75 mL/hr, Intravenous, Continuous, Starting Wed02/12/20 at 0000
Switch to NS if BG >300
[facility] Medication administered onsite Insulin Glargine 100 UNT/ML Injectable S olution [Lantus] insulin glargine (LANTUS) injection 24 Units insulin glargine (LANTUS) injection 24 Units 02/11/2020 09:00:00 PM EDT 24 U Subcutaneous aborted 24 Units, Subcutaneous, 2 Times Daily (Lantus), First dose on Wed02/11/20 at 2100
Basal Insulin (Lantus) Adjustments based on AM Blood GlucoseBlood GlucoseAdjustmentLess than 70 mg/dl Nursing to initiate hypoglycemia [id number] to 100 mg/dl Pharmacy to decrease total daily d ose by 20%101 to 200 mg/dl No Change
[facility] Medication administered onsite Insulin Lispro 100 UNT/ML Injectable Kaushal ution insulin lispro (HumaLOG) injection 3-32 Units insulin lispro (HumaLOG) injection 3-32 Units 02/11/20 20 12:00:00 PM EDT Subcutaneous aborted 3-3 2 Units, Subcutaneous, MEALSS, First dose on 02/11/20 at 1200
16 units Nutritional and Correction Insulin ScaleBlood Glucose (mg/dl) <70 start hypoglycemiaprotocolGlucoseEats >=50% Eats <50%Eats Nothing (mg/dl) of meal of mealor NPO70- 88680 units 5 units 0 -48285 units 8 units 0 [id number] units 11 units 3 - 05371 units 13 units 5 -13275 units 16 units 8 [id number] units 19 units 11 [id number]- [id number] units 21 units 13 units>420 call MD32 units 24 units 16 unitsTest glucose within 30 minutes of insulin administration.Administer insulin within 15 minutes (before or after) of the patient starting to eat.For patients that are NPO, use theNPO (correction) scale to cover POC glucose at 08:00, 12:00, 17:00.
[facility] Medication administered onsite Insulin Lispro 100 UNT/ML Injectable Kaushal ution insulin lispro (HumaLOG) injection 2-28 Units insulin lispro (HumaLOG) injection 2-28 Units 02/10/20 20 12:00:00 PM EDT Subcutaneous aborted 2-2 8 Units, Subcutaneous, MEALSS, First dose on 02/10/20 at 1200
14 units Nutritional and Correction Insulin ScaleBlood Glucose (mg/dl) <70 start hypoglycemiaprotocolGlucoseEats >=50% Eats <50%Eats Nothing (mg/dl) of meal of mealor NPO70- 1209 units 5 units 0 -02822 units 7 units 0 [id number]- 46181 units 9 units 2 [id number] units 12 units 5 [id number] units 14 units 7 [id number] [id number] units 16 units 9 [id number] units 19 units 12 units>420 call MD28 units 21 units 14 unitsTest glucose within 30 minutes of insulin administration.Administer insulin within 15 minutes (before or after) of the patient starting to eat.For patients that are NPO, use theNPO (correction) scale to cover POC glucose at 08:00, 12:00, 17:00.
[facility] Medication administered onsite Docusate Sodium 100 MG Oral Capsule docusate sodium (C OLACE) capsule 100 mg docusate sodium (COLACE) capsule 100 mg 02/09/2020 09:00:00 PM EDT 100 mg Oral active 100 mg, Oral, 2 times daily, First dose on Wed02/09/20 at 2100
hold for loose stools
[facility] Medication administered onsite vancomycin HCl (VANCOCIN) 1,250 mg in dextrose 5 % 250 mL IV PB 02/09/2020 06:00:00 PM EDT 1250 mg Intravenous aborted Sk in and Soft Tissue Infection 1,250 mg, Intravenous, Admin ister over 90 Minutes, Every 12 hours (relative), First dose on Wed02/09/[address] [facility] Skin and Soft Tissue Infection Medication administered [...] minutes. Use within 1 hour of reconstitution
[facility] Osteomyelitis Medication administered onsite Metronidazole 5 MG/ML Injectable Solution metroNIDAZOL E (FLAGYL) IVPB 500 mg metroNIDAZOLE (FLAGYL) IVPB 500 mg 02/09/2020 02:00:00 PM EDT 50 0 mg Intravenous aborted Clostridioides Difficile Associated Diarrhea 500 mg, Intravenous, Administer over 60 Minutes, Every 8 hours (relative), First dose on Wed02/09/[address] [facility] Clostridioides Difficile Associated Diar trae Medication administered onsite Bisacodyl 10 MG Rectal Suppository bisacodyl (DULCOLAX ) suppository 10 mg bisacodyl (DULCOLAX) suppository 10 mg 02/09/2020 01:00:00 PM EDT 10 mg Rectal active 10 mg, Rectal, Daily, First dose on Wed02/09/20 at 1300
hold for loose stools
[facility] Medication administered onsite POLYETHYLENE GLYCOL 3350 142 MG/ML Oral Solution polyethylene glycol (GLYCOLAX) packet 17 g polyethylene glycol (GLYCOLAX) packet 17 g 02/09/2020 01:00:00 PM EDT 17 g Oral active 17 g, Or al, Daily, First dose on Wed02/09/20 at 1300
hold for loose stools
[facility] Medication administered onsite iodixanol (VISIPAQUE) 320 MG/ML injection 150 mL [id number] 02/09/2020 10:06:16 AM EDT 150 mL Intra-arterial completed 150 mL, Intra-arterial, Once in imaging, contrast, Starting Wed02/09/20 at 1006, For [address] [facility] Medication administered onsite heparin (porcine) injection 14552-596-92 02/09/2020 09:24:22 AM EDT completed Code/trauma/sedation medication, Starting Wed02/09/[address] [facility] Medication administered onsite 2 ML Midazolam 1 MG/ML Injection midazolam (VERSED) in jection midazolam (VERSED) injection 02/09/2020 09:08:16 AM EDT Intravenous co mpleted Intravenous, Code/trauma/sedation medication, Starting Wed02/09/[address] [facility] Medication administered onsite fentaNYL Citrate (PF) (SUBLIMAZE) injection [id number] 02/09/2020 09:08:10 AM EDT Intravenous completed In travenous, Code/trauma/sedation medication, Starting Wed02/09/[address] [facility] Medication administered onsite DAILY CHE (THERAGRAN) 1 tablet [id number] 02/09/2020 09:00:00 AM EDT 1 {tbl} Oral active 1 tablet, Oral, Daily, First dose on Wed02/09/[address] [facility] Medication administered onsite Magnesium Chloride 0.58717 MEQ/ML / Pota ssium Chloride 0.0497 MEQ/ML / Sodium Acetate 0.0163 MEQ/ML / Sodium Chloride 0.0899 MEQ/ML / Sodium gluconate 5.02 MG/ML Injectable Solution [Normosol-R] electrolyte-R (NORMOSOL-R/PLASMALYTE-R) solution electrolyte-R (NORMOSOL-R/PLASMALYTE-R) solution 02/08 03:00:00 AM EDT Intravenous aborted at 7 5 mL/hr, Intravenous, Continuous, Starting Wed02/09/[address] [facility] Medication administered onsite POLYETHYLENE GLYCOL 3350 142 MG/ML Oral Solution polyethylene glycol (GLYCOLAX) packet 17 g polyethylene glycol (GLYCOLAX) packet 17 g 02/08/2020 02:00:00 PM EDT 17 g Oral aborted 17 g, Or al, Daily, First dose on Wed02/08/20 at 1400, Post-op
Start 2nd POD and continue until result.
[facility] Medication administered onsite Docusate Sodium 100 MG Oral Capsule docusate sodium (C OLACE) capsule 100 mg docusate sodium (COLACE) capsule 100 mg 02/08/2020 02:00:00 PM EDT 100 mg Oral aborted 100 mg, Oral, 2 times daily, First dose on Wed02/08/20 at 1400, Post-op
hold for loose stools
[facility] Medication administered onsite normal saline flush 0.9 % injection 3 mL [id number] 02/08/2020 02:00:00 PM EDT 3 mL Intravenous aborted 3 mL , Intravenous, PROTOCOL, First dose on Wed02/08/20 at 1400, Post-op
May convert IV to a saline lock when taking in good p.o. intake (minimally 600 mL).
[facility] Medication administered onsite Escitalopram 10 MG Oral Tablet escitalopram (LEXAPRO) tablet 10 mg escitalopram (LEXAPRO) tablet 10 mg 02/08/2020 02:00:00 PM EDT 10 mg Oral aborted 10 mg, Oral, Daily, First dose on Em 02/08/[address] [facility] Medication administered onsite oxyCODONE-acetaminophen (PERCOCET) 5-325 MG [...] 1315, For 3 days [Order [address] End] [facility] Medication administered onsite Nitroglycerin 0.4 MG Sublingual Tablet n itroglycerin (NITROSTAT) SL tablet 0.4 mg nitroglycerin (NITROSTAT) SL tablet 0.4 mg 02/08/2020 01:15:40 P M EDT 0.4 mg Sublingual active 0.4 mg, S ublingual, Every 5 min PRN, chest pain, Starting Em 02/08/20 at 1315
For angina on CABG patient. Notify MD/PA/SUPERVISOR TUBING.
[facility] Medication administered onsite ondansetron (ZOFRAN) injection 4 mg [id number] 02/08/2020 01:15:4 0 PM EDT 4 mg Intravenous active 4 mg, In travenous, Every 6 hours PRN, nausea, vomiting, Starting Em 02/08/20 at 1315
If no response in 15-30 minutes, give metoclopramide 10 mg IV x 1 then q6h prn N/V.
[facility] Medication administered onsite potassium chloride SA (K-DUR,KLOR-CON) CR tablet 40 mEq [id number] 02/08/2020 01:15:40 PM EDT 40 meq Oral active 40 mEq, Oral, As needed, Serum K+ 3.5-3.8, Starting Em 02/08/20 at 1315
For serum creatinine (SCR) 0.[address]
[facility] Medication administered onsite 50 ML Magnesium Sulfate [...] each.For serum creatinine (SCR) 0.[address]
[facility] Medication administered onsite potassium chloride SA (K-DUR,KLOR-CON) CR tablet 20 mEq [id number] 02/08/2020 01:15:40 PM EDT 20 meq Oral active 20 mEq, Oral, As needed, Serum K+ 3.9-4.1, Starting Em 02/08/20 at 1315
For serum creatinine (SCR) 0.[address]
[facility] Medication administered onsite 50 ML Magnesium Sulfate [...] hour.For serum creatinine (SCR) 0.[address]
[facility] Medication administered onsite Aluminum Hydroxide 64 MG/ML Oral Suspens ion aluminum hydroxide (ALTERNAGEL) suspension 15 mL aluminum hydroxide (ALTERNAGEL) suspension 15 mL 02/07 01:15:39 PM EDT 15 mL Oral active 15 mL, Oral, Every 4 hours PRN, for indigestion/ gas, Starting Wed02/08/[address] [facility] Medication administered onsite Albuterol 0.83 MG/ML Inhalant Solution a lbuterol (PROVENTIL) nebulizer solution 2.5 mg albuterol (PROVENTIL) nebulizer solution 2.5 mg 2019 01:15:39 PM EDT 2.5 mg active 2.5 mg, Nebulization, RT every 2 hours as needed, wheezing, shortness of breath, Starting Wed02/08/[address] [facility] Medication administered onsite Escitalopram 10 MG Oral Tablet escitalopram (LEXAPRO) tablet 10 mg escitalopram (LEXAPRO) tablet 10 mg 02/08/2020 09:00:00 AM EDT 10 mg Oral active 10 mg, Oral, Daily, First dose on Wed02/08/[address] [facility] Medication administered onsite normal saline flush 0.9 % injection 10 mL [id number] 02/07/2020 03:00:00 PM EDT 10 mL Intravenous active 10 m L, Intravenous, Every 8 hours (scheduled), First dose on Wed02/07/20 at 1500
Flush with 10 mL NS prior and post medication administration.Flush with 10 mL NS prior to blood specimen collection and flush with 20 mL to clear solution/drug post blood specimen collection
[facility] Medication administered onsite Insulin Glargine 100 UNT/ML Injectable S olution [Lantus] insulin glargine (LANTUS) injection 20 Units insulin glargine (LANTUS) injection 20 Units 02/07/2020 10:00:00 AM EDT 20 U Subcutaneous aborted 20 Units, Subcutaneous, 2 Times Daily (Lantus), First dose on Wed02/07/20 at 1000
Basal Insulin (Lantus) Adjustments based on AM Blood GlucoseBlood GlucoseAdjustmentLess than 70 mg/dl Nursing to initiate hypoglycemia [id number] to 100 mg/dl Pharmacy to decrease total daily d ose by 20%101 to 200 mg/dl No Change
[facility] Medication administered onsite Insulin Lispro 100 UNT/ML Injectable [place] ution insulin lispro (HumaLOG) injection 2-24 Units insulin lispro (HumaLOG) injection 2-24 Units 02/07/20 20 09:00:00 AM EDT Subcutaneous aborted 2-2 4 Units, Subcutaneous, MEALSS, First dose on Wed02/07/20 at 0900
RESISTANT 12 units Nutritional and Correction Insulin ScaleBlood Glucose (mg/dl) <70 start hypoglycemiaprotocolGl ucoseEats >=50% Eats <50%Eats Nothing (mg/dl) of meal of mealor [id number] units 4 units 0 ihrqb991- 85725 units 6 units 0 [id number] units 8 units 2 [id number] units 10 units 4 - 11878 units 12 units 6 -45839 units 14 units 8 [id number] units 16 units 10 units>420 call MD24 units 18 units 12 unitsTest glucose within 30 minutes of insulin administration.Administer insulin within 15 minutes (before or after) of the patient starting to eat.For patients that are NPO, use theNPO (correction) scale to cover POC glucose at 08:00, 12:00, 17:00.
[facility] Medication administered onsite vancomycin (VANCOCIN) IVPB 1,000 mg [id number] 02/07/2020 06:00:0 0 AM EDT 1000 mg Intravenous aborted Skin and Soft Tissue Infecti on 1,000 mg, Intravenous, Administer over 1 Hours, Every 12 hours (relative), First dose on Wed02/07/[address] [facility] Skin and Soft Tissue Infection Medication administered onsite piperacillin-tazobactam (ZOSYN) 3.375 g in sodium chloride (NS) 0.9 % 100 mL IV pigtail 02/06/2020 03:00:00 PM EDT 3.375 g Intravenous aborted Skin and Soft Tissue Infection 3.375 g, Intravenous, Admini ster over 30 Minutes, Every 6 hours (relative), First dose on Wed02/06/[address] [facility] Skin and Soft Tissue Infection Medication administered onsite valacyclovir 500 MG Oral Tablet valACYclovir (VALTREX) tablet 2,000 mg valACYclovir (VALTREX) tablet 2,000 mg 02/06/2020 03:00:00 PM EDT 2000 mg Oral completed Herpes Labialis 2,000 mg, Oral, 2 times daily, Indications: Herpes Labialis, First dose on Wed02/06/20 at 1500, For [address] [facility] Herpes Labialis Medication administered onsite Insulin Glargine 100 UNT/ML Injectable S olution [Lantus] insulin glargine (LANTUS) injection 25 Units insulin glargine (LANTUS) injection 25 Units 02/06/2020 03:00:00 PM EDT 25 U Subcutaneous complete d 25 Units, Subcutaneous, Once, Wed02/06/20 at 1500, For 1 dose
Basal Insulin (Lantus) Adjustments based on AM Blood GlucoseBlood Glucose AdjustmentLess than 70 mg/dl Nursing to initiate hypoglycemia [id number] to 100 mg/dl Pharmacy to decrease total daily dose by 20%101 to 200 mg/dl No Change
[facility] Medication administered onsite vancomycin in 500mL (VANCOCIN) IV 1,500 mg [id number] 02/06/2020 03:00:00 PM EDT 1500 mg Intravenous completed Skin and Soft Tiss ue Infection 1,500 mg, Intravenous, Administer over 120 Minutes, Once, Wed02/06/20 at 1500, For [address] [facility] Skin and Soft Tissue Infection Medication administered onsite normal saline flush 0.9 % injection 3 mL [id number] 02/06/2020 06:00:00 AM EDT 3 mL Intravenous aborted 3 mL , Intravenous, PROTOCOL, First dose on Wed02/06/20 at 0600
With good PO intake (600 ml X 1 shift)
[facility] Medication administered onsite Docusate Sodium 100 MG Oral Capsule docusate sodium (C OLACE) capsule 100 mg docusate sodium (COLACE) capsule 100 mg 02/06/2020 06:00:00 AM EDT 100 mg Oral aborted 100 mg, Oral, 2 times daily, First dose on Wed02/06/20 at 0600
hold for loose stools
[facility] Medication administered onsite cefazolin (ANCEF) injection 2 g 02/06/2020 06:00:00 AM EDT 2 g Intravenous completed 2 g, Intravenou s, Administer over 6 Minutes, Every 8 hours (relative), First dose on Wed02/06/20 at 0600, For 2 doses, PACU & Post-op
Start 8 hours after pre-op doseRN may administer IV push or infuse this medication through syringe adapter set ref [id number]. Flush line after use
[facility] Medication administered onsite heparin (porcine) injection 5,000 Units [id number] 02/06/20 06:00:00 AM EDT 5000 U Subcutaneous active 5,000 Units , Subcutaneous, Every 8 hours (scheduled), First dose on Wed02/06/20 at 0600
If platelet count is less than 100,000 or hematocrit is less than 25, or if there is a 5 point decrease in hematocrit, do not give the dose and call physician/designee.
[facility] Medication administered onsite Lisinopril 5 MG Oral Tablet lisinopril (PRINIVIL,ZESTR IL) tablet 5 mg lisinopril (PRINIVIL,ZESTRIL) tablet 5 mg 02/06/2020 05:00:00 AM EDT 5 mg O ral active 5 mg, Oral, Daily, F irst dose on Wed02/06/20 at 0500
Hold for SBP <120
[facility] Medication administered onsite clopidogrel 75 MG Oral Tablet clopidogrel (PLAVIX) tab let 75 mg clopidogrel (PLAVIX) tablet 75 mg 02/06/2020 02:00:00 AM EDT 75 mg Oral active 75 mg, Oral, Daily, First dose on Wed02/06/[address] [facility] Medication administered onsite Magnesium Chloride 0.40199 MEQ/ML / Pota ssium Chloride 0.0497 MEQ/ML / Sodium Acetate 0.0163 MEQ/ML / Sodium Chloride 0.0899 MEQ/ML / Sodium gluconate 5.02 MG/ML Injectable Solution [Normosol-R] electrolyte-R (NORMOSOL-R/PLASMALYTE-R) solution electrolyte-R (NORMOSOL-R/PLASMALYTE-R) solution 02/05 02:00:00 AM EDT Intravenous aborted at 1 00 mL/hr, Intravenous, Continuous, Starting Wed02/06/[address] [facility] Medication administered onsite Acetaminophen 325 MG / Oxycodone Hydroch loride 5 MG Oral Tablet oxyCODONE- acetaminophen (PERCOCET) 5-325 MG 2 tablet oxyCODONE-acetaminophen (PERCOCET) 5- 325 MG 2 tablet 02/06/2020 12:54:13 AM EDT 2 {tbl} Oral a borted 2 tablet, Oral, Every 4 hours PRN, severe pain (7-10), Starting Wed02/06/20 at 0054, For [address] [facility] Medication administered onsite POLYETHYLENE GLYCOL 3350 142 MG/ML Oral Solution polyethylene glycol (GLYCOLAX) packet 17 g polyethylene glycol (GLYCOLAX) packet 17 g 02/06/2020 12:54:13 AM EDT 17 g Oral active 17 g, Or al, Daily PRN, if no result from milk of magnesia (MOM), Starting Wed02/06/20 at 0054
hold for loose stools
[facility] Medication administered onsite Morphine Sulfate (PF) injection 2 mg [id number] 02/06/2020 12:54: 13 AM EDT 2 mg Intravenous aborted 2 mg, In travenous, Every 2 hour PRN, severe pain (7-10), severe pain if oral ineffective after 1 hour, Starting Wed02/06/20 at 0054, For [address] [facility] Medication administered onsite Acetaminophen 325 MG / Oxycodone Hydroch loride 5 MG Oral Tablet oxyCODONE- acetaminophen (PERCOCET) 5-325 MG 1 tablet oxyCODONE-acetaminophen (PERCOCET) 5- 325 MG 1 tablet 02/06/2020 12:54:13 AM EDT 1 {tbl} Oral a borted 1 tablet, Oral, Every 4 hours PRN, moderate pain (4-6), Starting Wed02/06/20 at 0054, For [address] [facility] Medication administered onsite Magnesium Hydroxide 80 MG/ML Oral Suspen roxanne magnesium hydroxide (MILK OF MAGNESIA) 400 MG/5ML suspension 30 mL magnesium hydroxide (MILK OF MAGNESIA) 4 00 MG/5ML suspension 30 mL 02/06/2020 12:00:00 AM EDT 30 mL Oral active 30 mL, Oral, Daily PRN, constipation, Starting Wed02/06/20 at 0000
If senna- docusate is not effective
[facility] Medication administered onsite Docusate Sodium 50 MG / sennosides, CORRECTION 8.6 MG Oral Tablet senna-docusate (PERICOLACE) 8.6-50 MG 2 tablet senna-docusate (PERICOLACE) 8.6-50 MG 2 tablet 02/05/2020 09:00:00 PM EDT 2 {tbl} Oral active 2 tablet, Oral, Nightly, First dose on Wed02/05/20 at 2100
hold for loose stools
[facility] Medication administered onsite iopamidol (ISOVUE-370) 76 % 120 mL [id number] 02/05/2020 09:03:59 AM EDT 120 mL Intravenous completed 120 mL, Intra venous, Once in imaging, contrast, Starting Wed02/05/20 at 0903, For [address] [facility] Medication administered onsite Aspirin 325 MG Oral Tablet aspirin tablet 325 mg aspirin tab let 325 mg 02/05/2020 09:00:00 AM EDT 325 mg Oral active 325 mg, Oral, Daily, First dose on Wed02/05/[address] [facility] Medication administered onsite atorvastatin 80 MG Oral Tablet atorvastatin (LIPITOR) tablet 80 mg atorvastatin (LIPITOR) tablet 80 mg 02/05/2020 09:00:00 AM EDT 80 mg Oral active 80 mg, Oral, Daily, First dose on Wed02/05/[address] [facility] Medication administered onsite Mupirocin 0.02 MG/MG Topical Ointment mupirocin (BACTR OBAN) 2 % ointment mupirocin (BACTROBAN) 2 % ointment 02/05/2020 09:00:00 AM EDT Topical active Topical, Daily, Firs t dose on Wed02/05/20 at 0900, Until Discontinued [facility] Medication administered onsite duloxetine 60 MG Delayed Release Oral Ca psule DULoxetine (CYMBALTA) DR capsule 60 mg DULoxetine (CYMBALTA) DR capsule 60 mg 02/05/2020 09:00:00 AM EDT 60 mg Oral aborted 60 mg, Oral, 2 times daily, First dose on Wed02/05/[address] [facility] Medication administered onsite clopidogrel 75 MG Oral Tablet clopidogrel (PLAVIX) tab let 75 mg clopidogrel (PLAVIX) tablet 75 mg 02/05/2020 09:00:00 AM EDT 75 mg Oral aborted 75 mg, Oral, Daily, First dose on Wed02/05/[address] [facility] Medication administered onsite 24 HR Bupropion Hydrochloride 150 MG Ext ended Release Oral Tablet buPROPion (WELLBUTRIN XL) 24 hr tablet 150 mg buPROPion (WELLBUTRIN XL) 24 hr tablet 1 50 mg 02/05/2020 09:00:00 AM EDT 150 mg Oral active 150 mg, Oral, Daily, First dose on Wed02/05/[address] [facility] Medication administered onsite pregabalin 75 MG Oral Capsule pregabalin (LYRICA) caps ule 150 mg pregabalin (LYRICA) capsule 150 mg 02/05/2020 09:00:00 AM EDT 150 mg Oral active 150 mg, Oral, 2 times daily, First dose on Wed02/05/20 at 0900, For [address] [facility] Medication administered onsite pantoprazole 40 MG Delayed Release Oral Tablet pantoprazole (PROTONIX) EC tablet 40 mg pantoprazole (PROTONIX) EC tablet 40 mg 02/05/2020 09:00:00 AM E DT 40 mg Oral active Gastroesophageal Reflux Diseas e 40 mg, Oral, Daily, Indications: Gastroesophageal Reflux Disease, First dose on Wed02/05/[address] [facility] Gastroesophageal Reflux Disease Medication administered onsite Clotrimazole 10 MG/ML Topical Cream clot rimazole (LOTRIMIN) 1 % cream 1 application clotrimazole (LOTRIMIN) 1 % cream 1 application 2019 09:00:00 AM EDT 1 {application} Topical active 1 application, Topical, 2 times daily, First dose on Wed02/05/20 at 0900, Until Discontinued [facility] Medication administered onsite 60 ACTUAT formoterol fumarate 0.005 MG/A CTUAT / mometasone furoate 0.2 MG/ACTUAT Metered Dose Inhaler mometasone-formoterol (DULERA) 200-5 MCG/ACT inhaler 2 puff mometasone-formoterol (DULERA) 200-5 MCG/ACT inhaler 2 puff 02/05/2020 08:00:00 AM EDT 2 {puff} Inhalation active 2 pu ff, Inhalation, 2 times daily, First dose on Wed02/05/[address] [facility] Medication administered onsite Insulin Lispro 100 UNT/ML [...] mealor NPO70- 1205 units 2 units 0 [id number] units 4 units 0 ucjdi118- 2208 units 5 units 1 [id number] units 6 units 2 ubbpb438- 15319 units 7 units 4 [id number] units 8 units 5 [id number] units 9 units 6 units>420 call MD14 units 11 units 7 unitsTest glucose within 30 minutes of insulin administration.Administer insulin within 15 minutes (before or after) of the patient starting to eat.For patients that are NPO, use theNPO (correction) scale to cover POC glucose at 08:00, 12:00, 17:00.
[facility] Medication administered onsite Pentoxifylline 400 MG Extended Release O ral Tablet pentoxifylline (TRENTal) CR tablet 400 mg pentoxifylline (TRENTal) CR tablet 400 mg 02/05/2020 0 8:00:00 AM EDT 400 mg Oral active 400 mg, Oral, 3 times daily with meals, First dose on Wed02/05/[address] [facility] Medication administered onsite ferrous sulfate 325 MG Oral Tablet ferrous sulfate tab let 325 mg ferrous sulfate tablet 325 mg 02/05/2020 07:00:00 AM EDT 325 mg Oral acti ve 325 mg, Oral, Daily with breakfast, First dose on Wed02/05/[address] [facility] Medication administered onsite dextrose 5 % and sodium chloride 0.45 % infusion [id number] 0 02/05/2020 06:00:00 AM EDT Intravenous aborted at 100 mL/hr, Intravenous, Continuous, Starting Wed02/05/20 at 0600
heplock with good PO intake
[facility] Medication administered onsite 500 ML heparin sodium, [...] 1 unit/kg/hr IV58.1 - 87 Therapeutic, No Puhwar45.1 - 97 Decrease infusion 1 unit/kg/hr IV 97.1 - 110Hold infusion for 30 minutes & decrease infusion 2 units/kg/hr IV> 110 Call MD if patient is bleeding. Hold infusion for 60 minutes & decrease infusion 3 units/kg/hr IVInitial heparin IV infusion rate:Do not exceed 1500 units/hour or 15 units/kg/hr (whichever is less)Infuse this medication only through single port tubing ([employer] Infusion Set ref [id number]). Medication and tubing is to be discarded if infusion off for [address]
[facility] Medication administered onsite normal saline flush 0.9 % injection 3 mL [id number] 02/05/2020 06:00:00 AM EDT 3 mL Intravenous aborted 3 mL , Intravenous, Every 8 hours (scheduled), First dose on Wed02/05/20 at 0600
flush per protocol, D/C Main IV fluid if appropriate
[facility] Medication administered onsite 1 ML heparin sodium, porcine 1000 UNT/ML Injection heparin (porcine) injection 1,000-10,000 Units heparin (porcine) injection 1,000-10,000 Units 020 05:18:27 AM EDT Intravenous aborted 1,000-10,000 Units, Intravenous, As needed, other, Starting Wed02/05/20 at 0518
Round dose to nearest 100 units< 34 Bolus: 75 units/kg IV (Maximum bolus: 10,000 units) 34 - 50 Bolus: 40 units/kg IV (Maximum bolus: 10,000 units)
[facility] Medication administered onsite Acetaminophen 325 MG / Hydrocodone Marline trate 5 MG Oral Tablet HYDROcodone- acetaminophen (NORCO) 5-325 MG per tablet 2 tablet HYDROcodone-acetaminophen (NORCO) 5-325 MG per tablet 2 tablet 02/05/2020 05:13:21 AM EDT 2 { tbl} Oral aborted 2 tablet, Oral, Every 6 hours PRN, severe pain (7-10), Starting Wed02/05/20 at 0513, For [address] [facility] Medication administered onsite 2 ML Metoclopramide 5 MG/ML Prefilled Sy ringe metoclopramide (REGLAN) injection 10 mg metoclopramide (REGLAN) injection 10 mg 02/05/2020 05:12:06 AM E DT 10 mg Intravenous active 10 mg, I ntravenous, Every 6 hours PRN, for Nausea/Vomiting not relieved by zofran, Starting Wed02/05/[address] [facility] Medication administered onsite Mineral Oil 1000 MG/ML Enema mineral oil enema 1 enema mineral oil enema 1 enema 02/05/2020 05:12:02 AM EDT 1 {enema} Rectal active 1 enema, Rectal, Daily PRN, constipation, unrelieved by MOM/bisacodyl/senna-docusate, Starting Wed02/05/20 at 0512
hold for loose stools
[facility] Medication administered onsite Acetaminophen 325 MG Oral Tablet acetaminophen (TYLENO L) 325 MG tablet 650 mg acetaminophen (TYLENOL) 325 MG tablet 650 mg 02/05/2020 05:11:58 AM EDT 650 mg Oral active 650 mg, Or al, Every 4 hours PRN, mild pain (1-3), headaches, Starting Wed02/05/20 at 0511
"Maximum dose of acetaminophen is 4,000 mg from all sources in 24 hours."
[facility] Medication administered onsite Cyclobenzaprine hydrochloride 10 MG Oral Tablet cyclobenzaprine (FLEXERIL) tablet 5 mg cyclobenzaprine (FLEXERIL) tablet 5 mg 02/05/2020 05:02:15 AM ED T 5 mg Oral active 5 mg, Oral , 3 times daily PRN, muscle spasms, Starting Wed02/05/[address] [facility] Medication administered onsite Albuterol 0.83 MG/ML Inhalant Solution a lbuterol (PROVENTIL) nebulizer solution 2.5 mg albuterol (PROVENTIL) nebulizer solution 2.5 mg 2019 05:01:24 AM EDT 2.5 mg active 2.5 mg, Nebulization, RT every 4 hours as needed, wheezing, shortness of breath, Starting Wed02/05/[address] [facility] Medication administered onsite 4 mg 02/04/2020 12:00:00 [...] 100 mg 01/19/2020 12:00:00 AM EDT capsule 18 TAKE ONE CAPSULE BY MOUTH TWICE A DAY TAKE ONE CAPSULE BY MOUTH TWICE A DAY SOLD: 05/16/2020 [facility] 100 mg 01/19/2020 12:00:00 AM [...] Wheelchair 01/05/2020 12:00:00 AM EDT active MEDENT ([facility]) empagliflozin 25 MG Oral Tablet [Jardiance] Jardiance 01/05/2020 12:00:00 AM EDT ORAL active MEDENT ([facility]) 5-325 mg 01/05/2020 12:00:00 AM EDT tablet [...] 6 HOURS NEEDED FOR NAUSEA SOLD: 01/05/2020 [facility] 750 mg 12/31/2019 12:00:00 AM EDT tablet 10 TAKE ONE TABLET BY MOUTH EVERY DAY TAKE ONE TABLET BY MOUTH EVERY DAY SOLD: 01/02/2020 [facility] 1 billion cell- 250 mg 12/31/2019 12:00:00 AM EDT tablet 20 TAKE ONE TABLET BY MOUTH TWICE A DAY WITH MEALS TAKE ONE TABLET BY MOUTH TWICE A DAY WITH MEALS SOLD: 01/02/2020 [facility] Clindamycin 150 MG Oral Capsule CLINDAMYCIN HCL 12/31/2019 12:00 :00 AM EDT capsule 30 TAKE ONE CAPSULE BY MOUTH THREE TIMES A DAY TAKE ONE CAPSULE BY MOUTH THREE TIMES A DAY SOLD: 01/02/2020 [facility] 5-325 mg 12/29/2019 12:00:00 AM EDT tablet 21 TAKE ONE TABLET BY MOUTH EVERY 8 HOURS NEEDED FOR PAIN MAXIMUM DAILY DOSE = THREE TABLETS TAKE ONE TABLET BY MOUTH EVERY 8 HOURS NEEDED FOR PAIN MAXIMUM DAILY DOSE = THREE TABLETS SOLD: 12/29/2019 [facility] 100 mg 12/22/2019 12:00:00 AM EDT capsule 20 TAKE ONE CAPSULE BY MOUTH TWICE A DAY FOR 10 DAYS TAKE ONE CAPSULE BY MOUTH TWICE A DAY FOR 10 DAYS SOLD : 12/22/2019 [facility] 5-325 mg 12/21/2019 12:00:00 AM EDT [...] 12/18/2019 12:00:00 AM EDT ORAL active [facility] ([facility] 5-325 mg 12/18/2019 12:00:00 AM EDT [...] 12/07/2019 12:00:00 AM EDT ORAL active MEDENT ([facility], ) 10 mg 12/07/2019 12:00:00 AM EDT tablet [...] Oxycodone-Acetaminophen 12/04/2019 12:00:00 AM EDT active [facility] ([facility] 5-325 mg 12/04/2019 12:00:00 AM EDT [...] TO YOUR BODY ALTERNATE SITES SOLD: 12/18/2019 [facility] 40 mg 11/17/2019 12:00:00 AM EDT capsule,delayed release (DR/EC) 180 TAKE ONE CAPSULE BY MOUTH TWICE A DAY TAKE ONE CAPSULE BY MOUTH TWICE A DAY SOLD: 11/18/2019 [facility] 24 HR Bupropion Hydrochloride 150 MG Extended Release Oral T ablet BUPROPION HCL 11/17/2019 12:00:00 AM EDT tablet extended release 24 hr 90 TAKE ONE TABLET BY MOUTH EVERY DAY TAKE ONE TABLET BY MOUTH EVERY DAY SOLD: 11/18/2019 [facility] 24 HR Bupropion Hydrochloride 150 MG Extended Release Oral Tablet Bupropion Hydrochloride ER (XL) 11/16/2019 12:00:00 AM EDT ORAL a ctive MEDENT ([facility]) 24 HR Nicotine 0.875 MG/HR Transdermal Patch Eq Nicotine 11/16/2019 12:00:00 AM EDT active MEDENT ([facility]) 2 % 11/13/2019 12:00:00 AM EDT ointment 22 APPLY TO AFFECTED AREA(S) TOPICALLY ON THE FOOT WOUND ONCE DAILY APPLY TO AFFECTED AREA(S) TOPICALLY ON THE FOOT WOUND ONCE DAILY SOLD: 11/13/2019 [facility] Cyclobenzaprine hydrochloride 5 MG Oral Tablet CYCLOBENZAPRI NE HCL 11/13/2019 12:00:00 AM EDT tablet 14 TAKE 1 TABLET BY MOUTH EVERY 12 HOURS NEEDED FOR SPASMS TAKE 1 TABLET BY MOUTH EVERY 12 HOURS NEEDED FOR SP ASMS SOLD: 11/13/2019 [facility] 2 % 11/13/2019 12:00:00 AM EDT ointment 22 APPLY TO AFFECTED AREA(S) TOPICALLY ON THE FOOT WOUND ONCE DAILY APPLY TO AFFECTED AREA(S) TOPICALLY ON THE FOOT WOUND ONCE DAILY SOLD: 12/04/2019 [facility] Cyclobenzaprine hydrochloride 5 MG Oral Tablet CYCLOBENZAPRI NE HCL 11/13/2019 12:00:00 AM EDT tablet 14 TAKE 1 TABLET BY MOUTH EVERY 12 HOURS NEEDED FOR SPASMS TAKE 1 TABLET BY MOUTH EVERY 12 HOURS NEEDED FOR SP ASMS SOLD: 12/04/2019 [facility] 5-325 mg 11/03/2019 12:00:00 AM EDT tablet 28 TAKE ONE TABLET BY MOUTH EVERY 12 HOURS NEEDED FOR PAIN MAXIMUM DAILY DOSE = 2 TABLETS TAKE ONE TABLET BY MOUTH EVERY 12 HOURS NEEDED FOR PAIN MAXIMUM DAILY DOSE = 2 TABLETS SOLD: 11/03/2019 [facility] 400 mg 11/01/2019 12:00:00 AM EDT tablet extended release 90 TAKE ONE TABLET BY MOUTH THREE TIMES A DAY TAKE ONE TABLET BY MOUTH THREE TIMES A DAY SOLD: 11/03/2019 [facility] atorvastatin 80 MG Oral Tablet ATORVASTATIN [...] DAILY DOSE = 2 CAPSULES SOLD: 11/03/2019 [facility] 1 mg 10/31/2019 12:00:00 AM EDT tablet 56 TAKE ONE TABLET BY MOUTH TWICE DAILY TAKE ONE TABLET BY MOUTH TWICE DAILY SOLD: 12/04/2019 [facility] 1 mg 10/31/2019 12:00:00 AM EDT tablet 56 TAKE ONE TABLET BY MOUTH TWICE DAILY TAKE ONE TABLET BY MOUTH TWICE DAILY SOLD: 11/03/2019 [facility] 75 mg 10/25/2019 12:00:00 AM EDT tablet 90 TAKE ONE TABLET BY MOUTH EVERY DAY TAKE ONE TABLET BY MOUTH EVERY DAY SOLD: 10/26/2019 [facility] clopidogrel 75 MG Oral Tablet [Plavix] Plavix 10/24/2019 12:00:00 AM EDT ORAL active MEDENT ([facility], ) 5-325 mg 10/19/2019 12:00:00 AM EDT tablet [...] 10/19/2019 12:00:00 AM EDT ORAL completed [facility] ([facility] 5-325 mg 10/11/2019 12:00:00 AM EDT [...] 6 HOURS NEEDED FOR NAUSEA SOLD: 10/19/2019 [facility] 5 mg 10/04/2019 12:00:00 AM EDT tablet 90 TAKE ONE TABLET BY MOUTH EVERY DAY TAKE ONE TABLET BY MOUTH EVERY DAY SOLD: 01/02/2020 [facility] 150 mg 09/28/2019 12:00:00 AM EDT capsule 60 TAKE ONE CAPSULE BY MOUTH TWICE A DAY MAXIMUM DAILY DOSE = 2 TAKE ONE CAPSULE BY MOUTH TWICE A DAY SARAHI RAIN DAILY DOSE = 2 SOLD: 10/03/2019 [facility]Aluminum/Adjustable/Ladies Handle 09/27/2019 12:00:00 AM ED T active MEDENT ([facility]) Chantix Starting Month Shahriar Chantix Starting Month Shahriar 2019 12:00:00 AM EDT completed MEDENT ([facility]) 0.5 mg (11)- 1 mg (42) 09/22/2019 12:00:00 AM EDT tablets,do se pack 53 TAKE BY MOUTH DIRECTED TAKE BY MOUTH DIRECTED SOLD: 09/24/2019 [facility] 5 mg 09/20/2019 12:00:00 AM EDT tablet 14 TAKE ONE TABLET BY MOUTH EVERY 12 HOURS NEEDED FOR SPASMS TAKE ONE TABLET BY MOUTH EVERY 12 HOURS NEEDED FOR SPASMS SOLD: 10/19/2019 [facility] 5 mg 09/20/2019 12:00:00 AM EDT tablet 14 TAKE ONE TABLET BY MOUTH EVERY 12 HOURS NEEDED FOR SPASMS TAKE ONE TABLET BY MOUTH EVERY 12 HOURS NEEDED FOR SPASMS SOLD: 09/22/2019 [facility] 200 mg 08/31/2019 12:00:00 AM EDT tablet 2 TAKE 1 TABLET BY MOUTH AND 1 TABLET 2 DAYS LATER IF SYMPTOMS PERSIST TAKE 1 TABLET BY MOUTH AND 1 TABLET 2 DAYS LATER IF SYMPTOMS PERSIST SOLD: 08/31/2019 [facility] Fluconazole 200 MG Oral Tablet [Diflucan] Diflucan 08/31/2019 1 2:00:00 AM EDT ORAL active MEDENT ([facility]) 5 mg 08/29/2019 12:00:00 AM EDT tablet 14 TAKE ONE TABLET BY MOUTH EVERY 12 HOURS NEEDED FOR SPASMS TAKE ONE TABLET BY MOUTH EVERY 12 HOURS NEEDED FOR SPASMS SOLD: 09/17/2019 [facility] 5 mg 08/29/2019 12:00:00 AM EDT tablet 14 TAKE ONE TABLET BY MOUTH EVERY 12 HOURS NEEDED FOR SPASMS TAKE ONE TABLET BY MOUTH EVERY 12 HOURS NEEDED FOR SPASMS SOLD: 08/31/2019 [facility] Onetouch Ultra 2 08/24/2019 12:00:00 AM EDT a ctive MEDENT ([facility]) 200 unit/mL (3 mL) 08/24/2019 12:00:00 [...] A DAY WITH INSULIN USE SOLD: 01/05/20 20 [facility] 150 mg 08/21/2019 12:00:00 AM [...] A DAY WITH INSULIN USE SOLD: 10/05/19 [facility] 2 % 08/15/2019 12:00:00 AM EDT ointment 22 APPL Y TO FOOT WOUND DAILY APPLY TO FOOT WOUND DAILY SOLD: 08/17/2019 [facility] 5 mg 08/08/2019 12:00:00 AM EDT [...] active Take 75 mg by mouth daily [facility] 75 mg 07/26/2019 12:00:00 AM EDT tablet 30 TAKE ONE TABLET BY MOUTH EVERY DAY TAKE ONE TABLET BY MOUTH EVERY DAY SOLD: 09/17/2019 [facility] 75 mg 07/26/2019 12:00:00 AM EDT tablet 30 TAKE ONE TABLET BY MOUTH EVERY DAY TAKE ONE TABLET BY MOUTH EVERY DAY SOLD: 07/29/2019 [facility] clopidogrel 75 MG Oral Tablet Clopidogrel Bisulfate 07/26/2019 1 2:00:00 AM EDT active MEDENT ( [facility]) 10 mg 07/22/2019 12:00:00 AM EDT tablet [...] 12:00:00 AM EDT ab orted as needed [facility] 10 mg 07/22/2019 12:00:00 AM EDT tablet [...] EMPTY STOMACH WITH VITAMIN CAPSULE SOLD: 07/22/2019 [facility] 325 mg (65 mg iron) 07/22/2019 12:00:00 AM EDT tablet 30 TAKE ONE TABLET BY MOUTH EVERY DAY ON AN EMPTY STOMACH WITH VITAMIN CAPSULE TAKE ONE TABLET BY MOUTH EVERY DAY ON AN EMPTY STOMACH WITH VITAMIN CAPSULE SOLD: 10/19/2019 [facility] 325 mg (65 mg iron) 07/22/2019 12:00:00 AM EDT tablet 30 TAKE ONE TABLET BY MOUTH EVERY DAY ON AN EMPTY STOMACH WITH VITAMIN CAPSULE TAKE ONE TABLET BY MOUTH EVERY DAY ON AN EMPTY STOMACH WITH VITAMIN CAPSULE SOLD: 08/24/2019 [facility] 4 mg 07/22/2019 12:00:00 AM EDT tablet 30 TAKE ONE TO TWO TABLETS BY MOUTH EVERY 6 HOURS NEEDED FOR NAUSEA TAKE ONE TO TWO TABLETS BY MOUTH EVERY 6 HOURS NEEDED FOR NAUSEA SOLD: 09/17/2019 [facility] 325 mg (65 mg iron) [...] 07/21/2019 12:00:00 AM EDT ORAL active MEDENT ([facility]) Metoclopramide 10 MG Oral Tablet Metoclopramide HCL 07/21/2019 1 2:00:00 AM EDT ORAL active MEDENT ( [facility]) Nystatin 07/21/2019 12:00:00 AM EDT active MEDENT ([facility]) Metoclopramide 10 MG Oral Tablet metoclopramide (MELVA N) 10 MG tablet metoclopramide (REGLAN) 10 MG tablet 10 mg Oral a ctive Take 10 mg by mouth 2 (two) times a day [facility] 10 mg 06/17/2019 12:00:00 AM EST tablet 20 TAKE ONE TABLET BY MOUTH EVERY 6 HOURS NEEDED FOR NAUSEA TAKE ONE TABLET BY MOUTH EVERY 6 HOURS A S NEEDED FOR NAUSEA SOLD: 06/18/2019 [facility] atorvastatin 80 MG Oral Tablet atorvastatin (LIPITOR) 80 MG tablet atorvastatin (LIPITOR) 80 MG tablet 80 mg Oral active Ta ke 80 mg by mouth daily [facility] 80 mg 06/15/2019 12:00:00 AM EST tablet 90 TAKE ONE TABLET BY MOUTH IN THE EVENING TAKE ONE TABLET BY MOUTH IN THE EVENING SOLD: 06/18/2019 [facility] atorvastatin 80 MG Oral Tablet Atorvastatin Calcium 06/14/2019 1 2:00:00 AM EST ORAL active MEDENT ( [facility]) 0.5 ML dulaglutide 3 MG/ML Auto-Injector [Trulicity] TRULICITY 1.5 MG/0.5ML SOPN TRULICITY 1.5 MG/0.5ML SOPN 4.5 mg Subcutaneous ab orted Inject 4.5 mg under the skin once a week on Wednesday [facility] 200 unit/mL (3 mL) 06/13/2019 12:00:00 AM EST insulin pen 15 INJECT 50 UNITS SUBCUTANEOUSLY TWO TIMES A DAY INJECT 50 UNITS SUBCUTANEOUSLY TWO TIMES A DAY SOLD: 06/18/2019 [facility] 1.5 mg/0.5 mL 06/13/2019 12:00:00 AM EST pen injector 6 INJECT 1 SUBCUTANEOUSLY ONCE WEEKLY INJECT 1 SUBCUTANEOUSLY ONCE WEEKLY SOLD: 06/18/2019 [facility] 0.5 ML dulaglutide 3 MG/ML Auto-Injector [Trulicity] Trulici ty 06/12/2019 12:00:00 AM EST SUBCUTANEOUS active MEDENT ([facility]) 800-160 mg 06/08/2019 12:00:00 AM EST tablet 20 TAKE ONE TABLET BY MOUTH TWICE A DAY TAKE ONE TABLET BY MOUTH TWICE A DAY SOLD: 06/10/2019 [facility] 875 mg 05/29/2019 12:00:00 AM EST tablet 20 TAKE ONE TABLET BY MOUTH EVERY 12 HOURS FOR 10 DAYS TAKE ONE TABLET BY MOUTH EVERY 12 HOURS FOR 10 DAYS SO LD: 05/30/2019 [facility] Lisinopril 5 MG Oral Tablet lisinopril (PRINIVIL,ZESTR IL) 5 MG tablet lisinopril (PRINIVIL,ZESTRIL) 5 MG tablet 05/26/2019 12:00:00 AM EST 5 mg O ral active Take 5 mg by mouth daily [facility] Mupirocin 0.02 MG/MG Topical Ointment mupirocin (BACTR OBAN) 2 % ointment mupirocin (BACTROBAN) 2 % ointment 05/26/2019 12:00:00 AM EST aborted APPLY TO AFFECTED AREA S ON FOOT WOUND ONCE DAILY [facility] 2 % 05/26/2019 12:00:00 AM EST ointment 22 APPLY TO AFFECTED AREA(S) ON FOOT WOUND ONCE DAILY APPLY TO AFFECTED AREA(S) ON FOOT WOUND ONCE DAILY K[facility]AL [facility] Lisinopril 5 MG Oral Tablet Lisinopril 05/26/2019 12:00:00 AM EST ORAL active MEDENT ([facility]) 2 % 05/26/2019 12:00:00 AM EST ointment 22 APPLY TO AFFECTED AREA(S) ON FOOT WOUND ONCE DAILY APPLY TO AFFECTED AREA(S) ON FOOT WOUND ONCE DAILY K[facility]USH[facility] 1 mL 31 gauge x 5/16 05/26/2019 12:00:00 AM EST syringe 10 0 INJECT ADMELOG PER SLIDING SCALE INJECT ADMELOG PER SLIDING SCALE SOLD: 05/28/2019 [facility] 5 mg 05/26/2019 12:00:00 AM EST tablet 90 TAKE ONE TABLET BY MOUTH EVERY DAY TAKE ONE TABLET BY MOUTH EVERY DAY SOLD: 05/28/2019 [facility] 2 % 05/26/2019 12:00:00 AM EST ointment 22 APPLY TO AFFECTED AREA(S) ON FOOT WOUND ONCE DAILY APPLY TO AFFECTED AREA(S) ON FOOT WOUND ONCE DAILY KAUSHAL [facility] 1 mL 31 gauge x 5/16 05/26/2019 12:00:00 AM EST syringe 10 0 INJECT ADMELOG PER SLIDING SCALE INJECT ADMELOG PER SLIDING SCALE SOLD: 07/19/2019 [facility] 40 mg 05/25/2019 12:00:00 AM EST capsule,delayed release (DR/EC) 180 TAKE ONE CAPSULE BY MOUTH TWICE A DAY TAKE ONE CAPSULE BY MOUTH TWICE A DAY SOLD: 08/08/2019 [facility] Insulin Syringe-Needle U-100 05/25/2019 12:00:00 AM EST active MEDENT ([facility]) 40 mg 05/25/2019 12:00:00 AM EST capsule,delayed release (DR/EC) 180 TAKE ONE CAPSULE BY MOUTH TWICE A DAY TAKE ONE CAPSULE BY MOUTH TWICE A DAY SOLD: 05/26/2019 [facility] 325 mg (65 mg iron) 05/25/2019 12:00:00 AM EST tablet 30 TAKE ONE TABLET BY MOUTH TWICE A DAY TAKE ONE TABLET BY MOUTH TWICE A DAY SOLD: 05/26/2019 [facility] 325 mg (65 mg iron) 05/25/2019 12:00:00 AM EST tablet 30 TAKE ONE TABLET BY MOUTH TWICE A DAY TAKE ONE TABLET BY MOUTH TWICE A DAY SOLD: 06/18/2019 [facility] Omeprazole 40 MG Delayed Release Oral Capsule Omeprazole 05/25/2019 12:00:00 AM EST ORAL active MED[facility] ([facility]) pregabalin 150 MG Oral Capsule Pregabalin 05/25/2019 12:00:00 AM EST ORAL active MED[facility] ([facility]) 150 mg 05/25/2019 12:00:00 AM EST capsule 60 TAKE ONE CAPSULE BY MOUTH TWICE A DAY MAXIMUM DAILY DOSE = 2 TAKE ONE CAPSULE BY MOUTH TWICE A DAY SARAHI RAIN DAILY DOSE = 2 SOLD: 05/26/2019 [facility] 75 mg 05/17/2019 12:00:00 AM EST tablet [...] BY MOUTH TWICE A DAY SOLD: 10/26/2019 [facility] 5 mg 05/15/2019 12:00:00 AM EST tablet 60 TAKE ONE TABLET BY MOUTH TWICE A DAY TAKE ONE TABLET BY MOUTH TWICE A DAY SOLD: 09/24/2019 [facility] 5 mg 05/15/2019 12:00:00 AM EST tablet 60 TAKE ONE TABLET BY MOUTH TWICE A DAY TAKE ONE TABLET BY MOUTH TWICE A DAY SOLD: 12/04/2019 [facility] 5 mg 05/15/2019 12:00:00 AM EST tablet 60 TAKE ONE TABLET BY MOUTH TWICE A DAY TAKE ONE TABLET BY MOUTH TWICE A DAY SOLD: 05/19/2019 [facility] 500 mg 05/11/2019 12:00:00 AM EST capsule 20 TAKE ONE CAPSULE BY MOUTH TWICE A DAY TAKE ONE CAPSULE BY MOUTH TWICE A DAY SOLD: 05/11/2019 [facility] 0.75 mg/0.5 mL 05/06/2019 12:00:00 AM [...] HOURS NEEDED FOR MUSCLE SPASMS SOLD: 04/23/2019 [facility] TRESIBA FLEXTOUCH 200 UNIT/ML SOPN 4305-4191-00 72 U Subcutaneous active Inject 72 Units under the skin 2 (two) times a day [facility] 5 mg 03/29/2019 12:00:00 AM EST tablet 60 TAKE ONE TABLET BY MOUTH TWICE A DAY TAKE ONE TABLET BY MOUTH TWICE A DAY SOLD: 03/29/2019 [facility] Metoclopramide 5 MG Oral Tablet [Reglan] Reglan 03/29/2019 12:00: 00 AM EST ORAL completed [facility] ([facility]) 150 mg 03/27/2019 12:00:00 AM EST tablet 60 TAKE ONE TABLET BY MOUTH TWICE A DAY TAKE ONE TABLET BY MOUTH TWICE A DAY SOLD: 03/28/2019 [facility] B-D ULTRAFINE III SHORT PEN 31G X 8 MM [facility] [id number] 03/07/2019 12:00:00 AM EST aborted USE ONE PEN NEED LE EVERY DAY FOR TOUEO PEN [facility] 31 gauge x 5/16" 03/07/2019 12:00:00 AM [...] times a day as needed (for rash) [facility] Aspirin 325 MG Oral Tablet ASPIRIN ADULT 325 MG tablet ASPIRIN ADULT 325 MG tablet 03/06/2019 12:00:00 AM EST 325 mg Oral aborted Take 325 [address] [facility] 0.75 mg/0.5 mL 02/27/2019 12:00:00 AM EST pen injector 6 INJECT 0.75 MG UNDER THE SKIN ONCE A WEEK INJECT 0.75 MG UNDER THE SKIN ONCE A WEEK SOLD: 03/17/2019 [facility] 0.5 ML dulaglutide 1.5 MG/ML Auto-Injector [Trulicity] [facility] 02/24/2019 12:00:00 AM EST SUBCUTANEOUS completed MED[facility] ([facility]) Fluconazole 200 MG Oral Tablet [Diflucan] Diflucan 02/24/2019 1 2:00:00 AM EST completed [facility] ([facility]) BLOOD SUGAR DIAGNOSTIC 02/23/2019 12:00:00 AM EST strip 150 TEST THREE TIMES A DAY WITH INSULIN USE TEST THREE TIMES A DAY WITH INSULIN USE SOLD: 05/28/19 20 [facility] STEGLATRO 15 MG TABS 0620-5515-07 15 mg Oral abor chanell Take [address] by mouth daily [facility] 15 mg 02/21/2019 12:00:00 AM EST tablet [...] {puff} Inhalation aborted Inhale [address] [facility] 200-25 mcg/dose 02/16/2019 12:00:00 AM EDT blister with jayla ce 60 INHALE ONE PUFF BY MOUTH EVERY DAY INHALE ONE PUFF BY MOUTH EVERY DAY SOLD: 07/19/2019 [facility] 200-25 mcg/dose 02/16/2019 12:00:00 AM EDT blister with jayla ce 60 INHALE ONE PUFF BY MOUTH EVERY DAY INHALE ONE PUFF BY MOUTH EVERY DAY SOLD: 06/10/2019 [facility] Nicotine 2 MG Oral Lozenge Nicotine Mini 02/16/2019 12:00:00 AM EDT ORAL completed MED[facility] ([facility]) pregabalin 150 MG Oral Capsule pregabalin (LYRICA) 150 MG capsule pregabalin (LYRICA) 150 MG capsule 150 mg Oral aborted Take 150 mg by mouth 2 (two) times a day [facility] 325 mg 11/03/2018 12:00:00 AM EDT tablet,delayed [...] MOUTH EVERY DAY SOLD: 09/17/2019 [facility] 200 unit/mL (3 mL) 10/04/2018 12:00:00 AM EDT insulin pen 15 INJECT 50 UNITS UNDER THE SKIN TWO TIMES A DAY INJECT 50 UNITS UNDER THE SKIN TWO TIMES A DAY SOLD: 04/08/2019 [facility] 325 mg 09/26/2018 12:00:00 AM EDT tablet 30 TAKE ONE TABLET BY MOUTH EVERY DAY TAKE ONE TABLET BY MOUTH EVERY DAY SOLD: 03/17/2019 [facility] 10 mg 08/04/2018 12:00:00 AM EDT tablet 30 TAKE ONE TABLET BY MOUTH EVERY DAY TAKE ONE TABLET BY MOUTH EVERY DAY SOLD: 03/17/2019 [facility] 10 mg 08/04/2018 12:00:00 AM EDT [...] TIMES A DAY WITH MEALS SOLD: 05/28/2019 [facility] ONE TOUCH ULTRA TEST test strip [id number] 12/21/2015 12:00:00 AM EDT aborted USE TO TEST THREE TIMES A DA Y [facility] B-D INS SYR ULTRAFINE 1CC/31G 31G X 5/16" 1 ML [facility] [phone] 10/11/2015 12:00:00 AM EDT aborted USE THR EE TIMES A DAY [facility] Insulin Lispro 100 UNT/ML Injectable Kaushal ution insulin lispro (ADMELOG) 100 UNIT/ML injection insulin lispro (ADMELOG) 100 UNIT/ML injection Subcutaneous aborted Inject under the skin 3 times daily sliding scale [facility] Escitalopram 10 MG Oral Tablet escitalopram (LEXAPRO) 10 MG tablet escitalopram (LEXAPRO) 10 MG tablet 10 mg Oral aborted T fito [address] [facility] Acetaminophen 325 MG / Hydrocodone Marline trate 5 MG Oral Tablet HYDROcodone- acetaminophen (NORCO) 5-325 MG per tablet HYDROcodone-acetaminophen (NORCO) 5- 325 MG per tablet 1 {tbl} Oral aborted Take 1 tablet by mouth every 6 (six) hours as needed for pain [facility] duloxetine 60 MG Delayed Release Oral Ca psule DULoxetine (CYMBALTA) 60 MG capsule DULoxetine (CYMBALTA) 60 MG capsule 60 mg Oral aborted Take 60 mg by mouth 2 (two) times a day [facility] Insurance Providers Payer name Policy type / Coverage type Policy ID Covered republican ID Covered republican's relationship to amanda Policy Amanda Plan Information [employer] COMMUNITY PLAN MCDO [id number] SP [id number] UN COMMUNITY PLAN MCDO [id number] SP [id number] [facility] O [id number] S [id number] INSURANCE COVID-19 [id number] [facility] MEDICAID [id number] INSURANCE COVID-19 COVID Jojo C OVID [facility] MEDICAID [id number] Jojo [id number] [facility] MEDICAID [id number] Jojo [id number] [place] [id number] SP [id number] HMO BLUE [id number] SP [id number] HMO BLUE [id number] SP [id number] Managed Care - [facility] Community Plan P [id number] S [id number] Medicaid S [id number] S [id number] UN COMMUNITY PLAN MCDO [id number] SP [id number] [facility] COMMUNITY PLAN [facility] [id number] SP [id number] [place] Tred Hmo Commercial [id number] Self [id number] [facility] Health Maintenance Organization (HMO) [id number] Self [id number] [place] Tred Hmo Commercial [id number] Self [id number] [place] [facility]red Hmo Commercial [id number] Self [id number] [place] Medig[place] Part B [id number] Self [id number] Ghi FHP-(DO Not Use) Medigap Part B [id number] Self [id number] BS [place] Hmo Blue Option Medigap Part B [id number] Self [id number] [facility] Community Plan Commercial [id number] Self [id number] [place] Tred Hmo Commercial [id number] Self [id number] [place] Tred Hmo Commercial [id number] Self [id number] [place] Tred Hmo Commercial [id number] Self [id number] [place] Tred Hmo Commercial [id number] Self [id number] UN COMMUNITY PLAN XIX [id number] 18 [id number] [place] [id number] Self [id number] Ghi FHP-(DO Not Use) Medigap Part B [id number] Self [id number] BS [place] Hmo Blue Option Medigap Part B [id number] Self [id number] [place] [id number] Self [id number] Ghi FHP-(DO Not Use) Medigap Part B [id number] Self [id number] [place] Hmo Blue Option Medigap Part B [id number] Self [id number] [place] Med[place] [id number] Self [id number] Ghi FHP-(DO Not Use) Medigap Part B [id number] Self [id number] BS [place] Hmo Blue Option Medigap Part B [id number] Self [id number] [facility] Hmo Commercial [id number] Self [id number] [facility] Rufino/MCR Health Maintenance Organization (HMO) [id number] Self [id number] [place] Tred Hmo Commercial [id number] Self [id number] [facility] Hmo Commercial [id number] Self [id number] [place] Med[place] [id number] Self [id number] Ghi FHP-(DO Not Use) Medigap Part B [id number] Self [id number] [facility] [place] [employer] Option Medigap Part B [id number] Self [id number] [place] Med[place] [id number] Self [id number] Ghi FHP-(DO Not Use) Medigap Part B [id number] Self [id number] [facility] [place] Hmo Blue Option Medigap Part B [id number] Self [id number] [facility] COMMUN[facility] MCDHMO [id number] SP [id number] [place] Med[place] Part [place] [id number] Self [id number] Ghi FHP-(DO Not Use) Medigap Part B [id number] Self [id number] [facility] [place] Hmo Blue Option Medigap Part B [id number] Self [id number] [place] [id number] Self [id number] Ghi FHP-(DO Not Use) Medigap Part B [id number] Self [id number] [facility] Hmo Blue Option Medigap Part B [id number] Self [id number] [facility] Commercial [id number] Self [id number] Medicaid [place] Medigap Part B [id number] Self [id number] Ghi FHP-(DO Not Use) Medigap Part B [id number] Self [id number] BS Rufino Hmo Blue Option Medigap Part B [id number] Self [id number] [facility] Hmo Commercial [id number] Self [id number] [facility] Plan-Rufino Commercial Self [facility] MEDICAID [id number] Jojo [id number] [facility] MEDICAID [id number] Jojo [id number] Managed Care - Community Plan [facility] P [id number] S [id number] [facility] Rufino/MCR Health Maintenance Organization (HMO) Self [facility] MEDICAID RUFINO HMO [id number] S [id number] Managed Care BCBS O [id number] S [id number] Self Pay O [id number] S [id number] Self Pay P UNAVAILABLE S UNAVAILA BLE Medicaid O UNAVAILABLE S UNAVAILA BLE MEDICAID [id number] SP [id number] Problems, Conditions, and Diagnoses Code Display Name Description Problem Type Effective Dates Data Source(s) T81.42XA Infection following a proced ure, deep incisional surgical site, initial encounter Infection following a procedure, deep in cisional surgical site, initial encounter Problem 04/16/2020 12:00:00 AM EST NETSMART ([facility]) 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 Problem 04/16/2020 12:00:00 AM EST NETSMART ([facility]) J44.9 Chronic obstructive pulmonary disease, u nspecified Chronic obstructive pulmonary disease, unspecified Problem 04/16/2020 12:00:00 AM EST NE TSMART ([facility]) E11.40 Type 2 diabetes mellitus with diabetic n europathy, unspecified Type 2 diabetes mellitus with diabetic neuropathy, unspecified Problem 04/16/2020 12:00:00 AM EST NETSMART ([facility] ) M19.90 Unspecified osteoarthritis, unspecified site Unspecified osteoarthritis, unspecified site Problem 04/16/2020 12:00:00 AM EST NETSMART ([facility]) K21.9 Gastro-esophageal reflux disease without esophagitis Gastro-esophageal reflux disease without esophagitis Problem 04/16/2020 12:00:00 AM ES T NETSMART ([facility]) G47.33 Obstructive sleep apnea (adult) (pediatr ic) Obstructive sleep apnea (adult) (pediatric) Problem 04/16/2020 12:00:00 AM EST NETSMART ([facility]) Z95.828 Presence of other vascular implants and grafts Presence of other vascular implants and grafts Problem 04/16/2020 12:00:00 AM EST NETS MART ([facility]) Z91.81 History of falling History of falling Problem 0 12:00:00 AM EST NETSMART ([facility]) Z95.1 Presence of aortocoronary bypass graft P resence of aortocoronary bypass graft Problem 04/16/2020 12:00:00 AM EST NETSMART ([facility]) E11.51 Type 2 diabetes mellitus wit h diabetic peripheral angiopathy without gangrene Type 2 diabetes mellitus with diabetic p eripheral angiopathy without gangrene Problem 04/16/2020 12:00:00 AM EST NETSMART ([facility]) I70.213 Atherosclerosis of [place] ar teries of extremities with intermittent claudication, bilateral legs Atherosclerosis of [place] arteries of ex tremities with intermittent claudication, bilateral legs Problem 020 12:00:00 AM EST NETSMART ([facility] ) I25.10 Atherosclerotic heart diseas e of [place] coronary artery without angina pectoris Atherosclerotic heart disease of [place] coronary artery without angina pectoris Problem 04/16/2020 12:00:00 AM EST NETSMART ([facility]) I10 Essential (primary) hypertension Essential (primary) h ypertension Problem 04/16/2020 12:00:00 AM EST NETSMART ([facility] ) F17.210 Nicotine dependence, cigarettes, uncompl icated Nicotine dependence, cigarettes, uncomplicated Problem 04/16/2020 12:00:00 AM EST NETSMAR T ([facility]) Z79.4 retirement (current) use of insulin retirement (cu rrent) use of insulin Problem 04/16/2020 12:00:00 AM [facility]) Z79.02 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 of antithromboti cs/antiplatelets retirement (current) use of antithrombotics/antiplatelets Problem 020 12:00:00 AM [facility] ) Z79.82 retirement (current) use of aspirin retirement (cu rrent) use of aspirin Problem 04/16/2020 12:00:00 AM [facility]) E11.621 Type 2 diabetes mellitus with foot ulcer Type 2 diabetes mellitus with foot ulcer Problem 04/16/2020 12:00:00 AM [facility]) J44.9 COPD (chronic obstructive pulmonary dise ase) COPD (chronic obstructive pulmonary disease) [id number] 04/12/2020 12:00:00 AM [facility] K21.9 Chronic GERD Chronic GERD [id number] 04/12/2020 12:00:00 A M [facility] E11.40 Diabetic neuropathy Diabetic neuropathy [id number] 06/13/2019 12:00:00 AM [facility] E78.5 HLD (hyperlipidemia) HLD (hyperlipidemia) [id number] 04/12/2020 12:00:00 AM [facility] F17.210 Heavy cigarette smoker (20-39 per day) H eavy cigarette smoker (20-39 per day) [id number] 04/12/2020 12:00:00 AM [facility] E11.59 Type 2 diabetes mellitus wit h circulatory disorder, with long-term current use of insulin Type 2 diabetes mellitus with aerospace medicine physician y disorder, with long-term current use of insulin [id number] 04/12/2020 12:00:00 AM [facility] S31.109A Right groin wound Right groin wound [id number] 04/12 12:00:00 AM [facility] [id number] Coronary arteriosclerosis Coronary arteriosclerosis Pr oblem 02/20/2020 12:00:00 AM EST MED[facility] ([facility]) 88020037 Atherosclerosis of arteries of the extre mities Atherosclerosis of arteries of the extremities Problem 02/20/2020 12:00:00 AM EST MEDEN T ([facility]) [id number] Infection due to Pseudomonas aeruginosa Infection due to Pseudomonas aeruginosa Problem 02/13/2020 12:00:00 AM EDT MEDENT ([facility] A49.8 Pseudomonas aeruginosa infection Pseudomonas aer uginosa infection [id number] 02/13/2020 12:00:00 AM EDT [facility] [id number] Osteomyelitis of ankle AND/OR foot Osteomyelitis of ankle AND/OR foot Problem 02/07/2020 12:00:00 AM EDT MEDENT ([facility]) M86.9 Osteomyelitis of foot Osteomyelitis of foot [id number] 02/07/2020 12:00:[address] [facility] Z48.812 Encounter for surgical after care following surgery on the circulatory system Encounter for surgical aftercare followi ng surgery on the circulatory system Problem 02/06/2020 01:00:00 AM EDT NETSMART ([facility]) [id number] Type 2 diabetes mellitus Type 2 diabetes mellitus Prob arnulfo 02/06/2020 12:00:00 AM EDT MEDENT ([facility]) Note: Last Assessment & Plan: Diabetes i s poorly controlled. [id number] Ischemia of right lower extremity Ischem ia of right lower extremity Problem 02/06/2020 12:00:00 AM EDT MED[facility] ([facility] 48197171 Hyperlipidemia Hyperlipidemia Problem 02/06/2020 12:00: 00 AM EDT MED[facility] ([facility]) Note: Last Assessment & Plan: Started on Atorvastatin 80mg 07/2019. She is tolerating medication without side effects. Due for repeat lipids. If LDL not <70 I recommend consideration to adding Zetia or PCSK9. Lipid order given to patient today [id number] Heavy cigarette smoker (20-39 cigs/day) Heavy cigarette [...] and the risks of continued tobacco abuse. [id number] Chronic obstructive lung disease Chronic obstruc tive lung disease Problem 02/06/2020 12:00:00 AM EDT [facility]) I99.8 Ischemia of right lower extremity Ischemia of ri ght lower extremity [id number] 02/06/2020 12:00:00 AM EDT [facility] L97.423 [id number] Non-pressure chronic ulcer of left heel and midfoot with necrosis of muscle Problem 01/25/2020 12:00:00 AM EDT eCW1 ([facility]) L97.513 [id number] Non-pressure chronic ulcer of other part of right foot with necrosis of muscle Problem 01/25/2020 12:00:00 AM EDT eCW1 ([facility]) [id number] 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 Z79.4 [id number] retirement (current) use of insulin Proble m 01/17/2020 12:00:00 AM EDT eCW1 ([facility]) L97.509 [id number] Non-pressure chronic ulcer of other part of unspecified foot with unspecified severity Problem 01/17/2020 12:00:00 AM EDT eCW1 ([facility]) E11.621 [id number] Type 2 diabetes mellitus with foot ulcer Problem 01/17/2020 12:00:00 AM EDT eCW1 ([facility]) [id number] Long-term current use of oral hypoglycem ic medication Long-term current use of oral hypoglycemic medication Problem 01/05/2020 12:00 :00 AM EDT MEDENT ([facility]) [id number] Peripheral vascular disease Peripheral vascular diseas e Problem 11/20/2019 12:00:00 AM EDT MEDENT ([facility]) Note: Last Assessment & Plan: Following closely with vascular. Smoking cessation strongly advised I73.9 Peripheral vascular disease Peripheral vascular diseas e [id number] 11/20/2019 12:00:[address] [facility] [id number] Mild recurrent major depression Mild recurrent m ajor depression Problem 11/16/2019 12:00:00 AM EDT MEDENT ([facility]) Pressure ulcer of left heel, stage 2 Pressure ul cer of left heel, stage 2 Problem 08/20/2019 12:00:00 AM EDT MEDENT ([facility] [id number] Type 2 diabetes mellitus with ulcer Type 2 diabetes mellitus with ulcer Problem 08/20/2019 12:00:00 AM EDT MEDENT ([facility] [id number] Long-term current use of oral hypoglycem ic medication Long-term current use of oral hypoglycemic medication Problem 07/05/2019 12:00 :00 AM EDT MEDENT ([facility]) Pressure ulcer of other site, stage 2 Pressure u lcer of other site, stage 2 Problem 05/21/2019 12:00:00 AM EST - 08/20/2019 12:00:00 AM ED T MEDENT ([facility] Cellulitis of right lower limb Cellulitis of right low er limb Problem 05/21/2019 12:00:00 AM EST - 08/20/2019 12:00:00 AM EDT MEDENT ([facility] [id number] Coronary atherosclerosis Coronary atherosclerosis Prob arnulfo 05/11/2019 12:00:00 AM EST MEDENT ([facility]) Note: Last Assessment & Plan: See discus roxanne above I25.10 Coronary artery disease invo lving [place] coronary artery of [place] heart without angina pectoris Coronary artery disease involving [place] coronary artery of [place] heart without angina pectoris [id number] 05/11/2019 12:00:[address] [facility] Type 2 diabetes mellitus with diabetic p olyneuropathy Type 2 diabetes mellitus with diabetic polyneuropathy Problem 05/11/2019 12:00:00 AM EST MED E[facility] ([facility] Corns and callosities Corns and callosities Problem 05/11/2019 12:00:00 AM EST MEDENT ([facility] [id number] Onychomycosis Onychomycosis Problem 05/11/2019 12:00:00 AM EST MEDENT ([facility] [id number] Preoperative state Preoperative state Problem 12:00:00 AM EST MEDENT ([facility]) Note: Last Assessment & Plan: She has [...] her PCP Z01.818 Pre-operative clearance Pre-operative clearance [id number] 04/11/2019 12:00:00 AM [facility] I73.9 Peripheral vascular disease, unspecified Peripheral vascular disease, unspecified Diagnosis 2020 12:55:28 PM [facility] Z79.4 retirement (current) use of insulin retirement (cu rrent) use of insulin Diagnosis 2020 12:55:28 PM [facility] E11.51 Type 2 diabetes mellitus wit h diabetic peripheral angiopathy without gangrene Type 2 diabetes mellitus with diabetic p Diagnosis 2020 12:55:28 PM [facility] E78.5 Hyperlipidemia, unspecified Hyperlipidemia, unspecifie d Diagnosis 2020 12:55:[address] [facility] F17.210 Nicotine dependence, cigarettes, uncompl icated Nicotine dependence, cigarettes, uncompl Diagnosis 2020 12:55:[address] [facility] I25.10 Atherosclerotic heart diseas e of [place] coronary artery without angina pectoris Atherosclerotic heart disease of [place] Diagnosis 2020 12:55:[address] [facility] S31.109A Unspecified open wound of ab dominal wall, unspecified quadrant without penetration into peritoneal cavity, initial encounter Unspecified open wound of abdominal wall Diagnosis 04/10/2020 11:17:[address] [facility] M86.172 Other acute osteomyelitis, left ankle an d foot Other acute osteomyelitis, left ankle an Diagnosis 02/18/2020 04:40:[address] [facility] T81.9XXA Unspecified complication of procedure, i nitial encounter Unspecified complication of procedure, i Diagnosis 02/18/2020 04:40:[address] [facility] T81.89XA Other complications of proce dures, not elsewhere classified, initial encounter Other complications of procedures, not e Diagnosis 02/06/2020 11:29:[address] [facility] M86.171 Other acute osteomyelitis, right ankle a nd foot Other acute osteomyelitis, right ankle a Diagnosis 02/05/2020 04:17:[address] [facility] T81.89XA Other complications of proce dures, not elsewhere classified, initial encounter Other complications of procedures, not e Diagnosis 01/23/2020 11:08:56 AM EDT [facility] Practices I21.4 Non-ST elevation (NSTEMI) myocardial inf arction Non-ST elevation (NSTEMI) myocardial inf Diagnosis 11/20/2019 09:49:[address] [facility] E11.59 Type 2 diabetes mellitus with other circ ulatory complications Type 2 diabetes mellitus with other circ Diagnosis 11/20/2019 09:49:[address] [facility] E78.49 Other hyperlipidemia Other hyperlipidemia Diagnosis 11/20/2019 09:49:[address] [facility] Z01.818 Encounter for other preprocedural examin ation Encounter for other preprocedural examin Diagnosis 05/11/2019 10:25:28 AM [facility] Surgeries/Procedures Procedure Description Date Indications Data Source(s) FINE NEEDLE ASPIRATION W/O IMAGING GUIDANCE 05/10/2020 12:00:00 AM EST eCW1 ([facility]) FINE NEEDLE ASPIRATION W/O IMAGING GUIDANCE 04/30/2020 12:00:00 AM EST eCW1 ([facility]) GLUC BLD GLUC MNTR DEV CLEARED FDA SPEC HOME USE POCT GLUCOSE Routine 04/15/2020 12:34 PM EST 04/15/2020 05:34:00 PM [facility] GLUC BLD GLUC MNTR DEV CLEARED FDA SPEC HOME USE POCT GLUCOSE Routine 04/15/2020 8:42 AM EST 04/15/2020 01:42:00 PM [facility] BLOOD COUNT COMPLETE AUTOMATED CBC Routine 04/15/2020 6:43 A M EST 04/15/2020 11:43:00 AM [facility] BASIC METABOLIC PANEL CALCIUM TOTAL BASIC METABOLIC PANEL Timed 04/15/2020 6:43 AM EST 04/15/2020 11:43:00 AM [facility] GLUC BLD GLUC MNTR DEV CLEARED FDA SPEC HOME USE POCT GLUCOSE Routine 04/15/2020 6:17 AM EST 04/15/2020 11:17:00 AM [facility] GLUC BLD GLUC MNTR DEV CLEARED FDA SPEC HOME USE POCT GLUCOSE Routine 04/14/2020 11:33 PM EST 04/15/2020 04:33:00 AM [facility] GLUC BLD GLUC MNTR DEV CLEARED FDA SPEC HOME USE POCT GLUCOSE Routine 04/14/2020 8:27 PM EST 04/15/2020 01:27:00 AM [facility] GLUC BLD GLUC MNTR DEV CLEARED FDA SPEC HOME USE POCT GLUCOSE Routine 04/14/2020 7:04 PM EST 04/15/2020 12:04:00 AM [facility] GLUC BLD GLUC MNTR DEV CLEARED FDA SPEC HOME USE POCT GLUCOSE Routine 04/14/2020 12:46 PM EST 04/14/2020 05:46:[address] [facility] GLUC BLD GLUC MNTR DEV CLEARED FDA SPEC HOME USE POCT GLUCOSE Routine 04/14/2020 10:32 AM EST 04/14/2020 03:32:[address] [facility] GLUC BLD GLUC MNTR DEV CLEARED FDA SPEC HOME USE POCT GLUCOSE Routine 04/14/2020 10:04 AM EST 04/14/2020 03:04:[address] [facility] GLUC BLD GLUC MNTR DEV CLEARED FDA SPEC HOME USE POCT GLUCOSE Routine 04/14/2020 9:39 AM EST 04/14/2020 02:39:00 PM [facility] GLUC BLD GLUC MNTR DEV CLEARED FDA SPEC HOME USE POCT GLUCOSE Routine 04/14/2020 8:42 AM EST 04/14/2020 01:42:00 PM [facility] BLOOD COUNT COMPLETE AUTOMATED CBC Routine 04/14/2020 6:46 A M EST 04/14/2020 11:46:00 AM [facility] BASIC METABOLIC PANEL CALCIUM TOTAL BASIC METABOLIC PANEL Timed 04/14/2020 6:46 AM EST 04/14/2020 11:46:00 AM [facility] GLUC BLD GLUC MNTR DEV CLEARED FDA SPEC HOME USE POCT GLUCOSE Routine 04/13/2020 6:25 PM EST 04/13/2020 11:25:00 PM [facility] GLUC BLD GLUC MNTR DEV CLEARED FDA SPEC HOME USE POCT GLUCOSE Routine 04/13/2020 1:04 PM EST 04/13/2020 06:04:00 PM [facility] GLUC BLD GLUC MNTR DEV CLEARED FDA SPEC HOME USE POCT GLUCOSE Routine 04/13/2020 9:04 AM EST 04/13/2020 02:04:00 PM [facility] BLOOD COUNT COMPLETE AUTOMATED CBC Routine 04/13/2020 8:50 A M EST 04/13/2020 01:50:00 PM [facility] DRUG SCREEN QUALITATIVE VANCOMYCIN VANCOMYCIN, TROUGH Routine 04/13/2020 8:50 AM EST 04/13/2020 01:50:00 PM [facility] BASIC METABOLIC PANEL CALCIUM TOTAL BASIC METABOLIC PANEL Routi ne 04/13/2020 8:50 AM EST 04/13/2020 01:50:00 PM [facility] GLUC BLD GLUC MNTR DEV CLEARED FDA SPEC HOME USE POCT GLUCOSE Routine 04/12/2020 9:16 PM EST 04/13/2020 02:16:00 AM [facility] GLUC BLD GLUC MNTR DEV CLEARED FDA SPEC HOME USE POCT GLUCOSE Routine 04/12/2020 8:11 PM EST 04/13/2020 01:11:00 AM [facility] GLUC BLD GLUC MNTR DEV CLEARED FDA SPEC HOME USE POCT GLUCOSE Routine 04/12/2020 6:16 PM EST 04/12/2020 11:16:00 PM [facility] GLUC BLD GLUC MNTR DEV CLEARED FDA SPEC HOME USE POCT GLUCOSE Routine 04/12/2020 2:39 PM EST 04/12/2020 07:39:00 PM [facility] GLUC BLD GLUC MNTR DEV CLEARED FDA SPEC HOME USE POCT GLUCOSE Routine 04/12/2020 2:12 PM EST 04/12/2020 07:12:00 PM [facility] GLUC BLD GLUC MNTR DEV CLEARED FDA SPEC HOME USE POCT GLUCOSE Routine 04/12/2020 1:52 PM EST 04/12/2020 06:52:00 PM [facility] GLUC BLD GLUC MNTR DEV CLEARED FDA SPEC HOME USE POCT GLUCOSE Routine 04/12/2020 1:38 PM EST 04/12/2020 06:38:00 PM [facility] GLUC BLD GLUC MNTR DEV CLEARED FDA SPEC HOME USE POCT GLUCOSE Routine 04/12/2020 8:58 AM EST 04/12/2020 01:58:00 PM [facility] BLOOD COUNT COMPLETE AUTOMATED CBC Routine 04/12/2020 6:45 A M EST 04/12/2020 11:45:00 AM [facility] BASIC METABOLIC PANEL CALCIUM TOTAL BASIC METABOLIC PANEL Routi ne 04/12/2020 6:45 AM EST 04/12/2020 11:45:00 AM EST [facility] GLUC BLD GLUC MNTR DEV CLEARED FDA SPEC HOME USE POCT GLUCOSE Routine 04/11/2020 7:35 PM EST 04/12/2020 12:35:00 AM [facility] GLUC BLD GLUC MNTR DEV CLEARED FDA SPEC HOME USE POCT GLUCOSE Routine 04/11/2020 6:18 PM EST 04/11/2020 11:18:00 PM [facility] GLUC BLD GLUC MNTR DEV CLEARED FDA SPEC HOME USE POCT GLUCOSE Routine 04/11/2020 12:27 PM EST 04/11/2020 05:27:00 PM [facility] GLUC BLD GLUC MNTR DEV CLEARED FDA SPEC HOME USE POCT GLUCOSE Routine 04/11/2020 11:52 AM EST 04/11/2020 04:52:00 PM [facility] GLUC BLD GLUC MNTR DEV CLEARED FDA SPEC HOME USE POCT GLUCOSE Routine 04/11/2020 11:38 AM EST 04/11/2020 04:38:00 PM [facility] GLUC BLD GLUC MNTR DEV CLEARED FDA SPEC HOME USE POCT GLUCOSE Routine 04/11/2020 11:23 AM EST 04/11/2020 04:23:00 PM [facility] CTA ABDL AORTA&BI ILIOFEM W/CONTRAST&POSTPROCESS CT A NGIOGRAM ABDOMINAL AORTA AND BILATERAL RUNOFF Routine 04/11/2020 9:48 AM EST 04/11/2020 02:48:50 PM [facility] BLOOD COUNT COMPLETE AUTOMATED CBC Routine 04/11/2020 8:28 A M EST 04/11/2020 01:28:00 PM [facility] DRUG SCREEN QUALITATIVE VANCOMYCIN VANCOMYCIN, RANDOM STAT 04/11/2020 8:28 AM EST 04/11/2020 01:28:00 PM [facility] BASIC METABOLIC PANEL CALCIUM TOTAL BASIC METABOLIC PANEL Routi ne 04/11/2020 8:28 AM EST 04/11/2020 01:28:00 PM [facility] GLUC BLD GLUC MNTR DEV CLEARED FDA SPEC HOME USE POCT GLUCOSE Routine 04/11/2020 8:09 AM EST 04/11/2020 01:09:00 PM [facility] GLUC BLD GLUC MNTR DEV CLEARED FDA SPEC HOME USE POCT GLUCOSE Routine 04/11/2020 5:21 AM EST 04/11/2020 10:21:00 AM [facility] ECG ROUTINE ECG W/LEAST 12 LDS TRCG ONLY W/O I&R ECG 12-LEAD Routine 04/11/2020 4:53 AM EST 04/11/2020 09:53:[address] [facility] GLUC BLD GLUC MNTR DEV CLEARED FDA SPEC HOME USE POCT GLUCOSE Routine 04/11/2020 1:07 AM EST 04/11/2020 06:07:00 AM [facility] IADNA S AUREUS METHICILLIN RESIST AMP PROBE TQ MRSA SCREEN BY P CR Routine 04/11/2020 12:50 AM EST 04/11/2020 05:50:00 AM [facility] CUL BACT XCPT URINE BLOOD/STOOL AEROBIC ISOL WOUND CULTURE Ro utine 04/11/2020 12:50 AM EST 04/11/2020 05:50:00 AM [facility] HEMOGLOBIN GLYCOSYLATED A1C HEMOGLOBIN A1C Routine 04/11/2020 12:47 AM EST 04/11/2020 05:47:00 AM [facility] BLOOD COUNT COMPLETE AUTOMATED CBC Routine 04/11/2020 12:41 A M EST 04/11/2020 05:41:00 AM [facility] COMPREHENSIVE METABOLIC PANEL COMPREHENSIVE METABOLIC PANEL Rou jw 04/11/2020 12:41 AM EST 04/11/2020 05:41:00 AM [facility] GLUC BLD GLUC MNTR DEV CLEARED FDA SPEC HOME USE POCT GLUCOSE Routine 04/11/2020 12:29 AM EST 04/11/2020 05:29:[address] [facility] FINE NEEDLE ASPIRATION W/O IMAGING GUIDANCE 04/05/2020 12:00:00 AM EST eCW1 ([facility]) DUP-SCAN LXTR ART/ARTL BPGS COMPL BI STUDY 03/21/2020 12:00:00 AM EST JOSE ([facility]) FINE NEEDLE ASPIRATION W/O IMAGING GUIDANCE 03/21/2020 12:00:00 AM EST eCW1 ([facility]) DEBRIDEMENT NAIL ANY METHOD 6/> 03/05/2020 12:00:00 AM EST MEDENT ([facility] FINE NEEDLE ASPIRATION W/O IMAGING GUIDANCE 02/29/2020 12:00:00 AM EST eCW1 ([facility]) GLUC BLD GLUC MNTR DEV CLEARED FDA SPEC HOME USE POCT GLUCOSE Routine 02/20/2020 5:06 PM EST 02/20/2020 10:06:[address] [facility] GLUC BLD GLUC MNTR DEV CLEARED FDA SPEC HOME USE POCT GLUCOSE Routine 02/20/2020 11:28 AM EST 02/20/2020 04:28:00 PM [facility] GLUC BLD GLUC MNTR DEV CLEARED FDA SPEC HOME USE POCT GLUCOSE Routine 02/20/2020 10:36 AM EST 02/20/2020 03:36:00 PM [facility] GLUC BLD GLUC MNTR DEV CLEARED FDA SPEC HOME USE POCT GLUCOSE Routine 02/20/2020 8:25 AM EST 02/20/2020 01:25:00 PM [facility] BLOOD COUNT COMPLETE AUTOMATED CBC Timed 02/20/2020 3:36 A M EST 02/20/2020 08:36:00 AM [facility] 2019 NCOV AMPLIFIED 2019 NCOV AMPLIFIED Routine 02/20/2020 12:00 AM EST 02/20/2020 05:00:00 AM [facility] GLUC BLD GLUC MNTR DEV CLEARED FDA SPEC HOME USE POCT GLUCOSE Routine 02/19/2020 6:07 PM EST 02/19/2020 11:07:00 PM [facility] GLUC BLD GLUC MNTR DEV CLEARED FDA SPEC HOME USE POCT GLUCOSE Routine 02/19/2020 12:04 PM EST 02/19/2020 05:04:00 PM [facility] GLUC BLD GLUC MNTR DEV CLEARED FDA SPEC HOME USE POCT GLUCOSE Routine 02/19/2020 7:41 AM EST 02/19/2020 12:41:00 PM [facility] BASIC METABOLIC PANEL CALCIUM TOTAL BASIC METABOLIC PANEL Routi ne 02/19/2020 6:36 AM EST 02/19/2020 11:36:00 AM [facility] GLUC BLD GLUC MNTR DEV CLEARED FDA SPEC HOME USE POCT GLUCOSE Routine 02/18/2020 7:30 PM EST 02/19/2020 12:30:00 AM [facility] BLOOD COUNT COMPLETE AUTOMATED CBC Routine 02/18/2020 6:23 P M EST 02/18/2020 11:23:00 PM [facility] HEMOGLOBIN GLYCOSYLATED A1C HEMOGLOBIN A1C Routine 02/18/2020 6:23 PM EST 02/18/2020 11:23:00 PM [facility] GLUC BLD GLUC MNTR DEV CLEARED FDA SPEC HOME USE POCT GLUCOSE Routine 02/18/2020 5:48 PM EST 02/18/2020 10:48:00 PM [facility] GLUC BLD GLUC MNTR DEV CLEARED FDA SPEC HOME USE POCT GLUCOSE Routine 02/18/2020 5:16 PM EST 02/18/2020 10:16:00 PM [facility] GLUC BLD GLUC MNTR DEV CLEARED FDA SPEC HOME USE POCT GLUCOSE Routine 02/18/2020 5:02 PM EST 02/18/2020 10:02:00 PM [facility] GLUC BLD GLUC MNTR DEV CLEARED FDA SPEC HOME USE POCT GLUCOSE Routine 02/18/2020 4:53 PM EST 02/18/2020 09:53:00 PM [facility] GLUC BLD GLUC MNTR DEV CLEARED FDA SPEC HOME USE POCT GLUCOSE Routine 02/16/2020 7:23 AM EDT 02/16/2020 11:23:[address] [facility] GLUC BLD GLUC MNTR DEV CLEARED FDA SPEC HOME USE POCT GLUCOSE Routine 02/15/2020 5:11 PM EDT 02/15/2020 09:11:[address] [facility] GLUC BLD GLUC MNTR DEV CLEARED FDA SPEC HOME USE POCT GLUCOSE Routine 02/15/2020 12:23 PM EDT 02/15/2020 04:23:[address] [facility] GLUC BLD GLUC MNTR DEV CLEARED FDA SPEC HOME USE POCT GLUCOSE Routine 02/15/2020 8:47 AM EDT 02/15/2020 12:47:[address] [facility] BLOOD COUNT COMPLETE AUTOMATED CBC Timed 02/15/2020 5:24 A M EDT 02/15/2020 09:24:[address] [facility] BASIC METABOLIC PANEL CALCIUM TOTAL BASIC METABOLIC PANEL Timed 02/15/2020 5:24 AM EDT 02/15/2020 09:24:00 AM EDT [facility] GLUC BLD GLUC MNTR DEV CLEARED FDA SPEC HOME USE POCT GLUCOSE Routine 02/14/2020 6:11 PM EDT 02/14/2020 10:11:[address] [facility] GLUC BLD GLUC MNTR DEV CLEARED FDA SPEC HOME USE POCT GLUCOSE Routine 02/14/2020 1:01 PM EDT 02/14/2020 05:01:[address] [facility] GLUC BLD GLUC MNTR DEV CLEARED FDA SPEC HOME USE POCT GLUCOSE Routine 02/14/2020 9:01 AM EDT 02/14/2020 01:01:[address] [facility] BLOOD COUNT COMPLETE AUTOMATED CBC Timed 02/14/2020 4:58 A M EDT 02/14/2020 08:58:[address] [facility] BASIC METABOLIC PANEL CALCIUM TOTAL BASIC METABOLIC PANEL Timed 02/14/2020 4:58 AM EDT 02/14/2020 08:58:00 AM EDT [facility] GLUC BLD GLUC MNTR DEV CLEARED FDA SPEC HOME USE POCT GLUCOSE Routine 02/13/2020 5:52 PM EDT 02/13/2020 09:52:[address] [facility] GLUC BLD GLUC MNTR DEV CLEARED FDA SPEC HOME USE POCT GLUCOSE Routine 02/13/2020 12:20 PM EDT 02/13/2020 04:20:[address] [facility] GLUC BLD GLUC MNTR DEV CLEARED FDA SPEC HOME USE POCT GLUCOSE Routine 02/13/2020 9:27 AM EDT 02/13/2020 01:27:[address] [facility] GLUC BLD GLUC MNTR DEV CLEARED FDA SPEC HOME USE POCT GLUCOSE Routine 02/13/2020 8:48 AM EDT 02/13/2020 12:48:[address] [facility] BLOOD COUNT COMPLETE AUTOMATED CBC Timed 02/13/2020 5:15 A M EDT 02/13/2020 09:15:[address] [facility] BASIC METABOLIC PANEL CALCIUM TOTAL BASIC METABOLIC PANEL Timed 02/13/2020 5:15 AM EDT 02/13/2020 09:15:00 AM EDT [facility] GLUC BLD GLUC MNTR DEV CLEARED FDA SPEC HOME USE POCT GLUCOSE Routine 02/12/2020 7:55 PM EDT 02/12/2020 11:55:[address] [facility] GLUC BLD GLUC MNTR DEV CLEARED FDA SPEC HOME USE POCT GLUCOSE Routine 02/12/2020 5:46 PM EDT 02/12/2020 09:46:[address] [facility] BYP OTH/THN VEIN FEMORAL-POPLITEAL CREATION, BYPASS, ARTERIAL, FEMORAL TO POPLITEAL, USING GRAFT 02/12/2020 1:48 PM EDT Ischemic leg 02/12/2020 05:48:00 PM EDT - 02/12/2020 10:03:[address] [facility] Ischemic leg DEBRIDEMENT SUBCUTANEOUS TISSUE 20 SQ CM/< DEBRIDEMENT, WOUND 02/12/2020 1:48 PM EDT Ischemic leg 02/12/2020 05:48:00 PM EDT - 02/12/2020 10:03:[address] [facility] Ischemic leg GLUC BLD GLUC MNTR DEV CLEARED FDA SPEC HOME USE POCT GLUCOSE Routine 02/12/2020 12:48 PM EDT 02/12/2020 04:48:[address] [facility] GLUC BLD GLUC MNTR DEV CLEARED FDA SPEC HOME USE POCT GLUCOSE Routine 02/12/2020 12:07 PM EDT 02/12/2020 04:07:[address] [facility] GLUC BLD GLUC MNTR DEV CLEARED FDA SPEC HOME USE POCT GLUCOSE Routine 02/12/2020 9:12 AM EDT 02/12/2020 01:12:[address] [facility] BLOOD COUNT COMPLETE AUTOMATED CBC Timed 02/12/2020 3:45 A M EDT 02/12/2020 07:45:[address] [facility] BASIC METABOLIC PANEL CALCIUM TOTAL BASIC METABOLIC PANEL Timed 02/12/2020 3:45 AM EDT 02/12/2020 07:45:00 AM EDT [facility] 2019 NCOV AMPLIFIED 2019 NCOV AMPLIFIED STAT 02/12/2020 12:00 AM EDT 02/12/2020 04:00:00 AM EDT [facility] GLUC BLD GLUC MNTR DEV CLEARED FDA SPEC HOME USE POCT GLUCOSE Routine 02/11/2020 11:55 PM EDT 02/12/2020 03:55:[address] [facility] DEBRIDEMENT SUBCUTANEOUS TISSUE 20 SQ CM/< 02/12/2020 12:00:00 AM EDT [facility] ([facility]) DEBRIDEMENT BONE MUSCLE &/FASCIA 20 SQ CM/< 02/12/2020 12:00:00 AM EDT [facility] ([facility]) Bypass Graft W/Vein Femoral-Popliteal 02/12/2020 12:00 :00 AM EDT [facility] ([facility]) Bypass Graft Other Than Vein Femoral-Popliteal 020 12:00:00 AM EDT [facility] ([facility]) GLUC BLD GLUC MNTR DEV CLEARED FDA SPEC HOME USE POCT GLUCOSE Routine 02/11/2020 4:52 PM EDT 02/11/2020 08:52:[address] [facility] GLUC BLD GLUC MNTR DEV CLEARED FDA SPEC HOME USE POCT GLUCOSE Routine 02/11/2020 2:11 PM EDT 02/11/2020 06:11:[address] [facility] GLUC BLD GLUC MNTR DEV CLEARED FDA SPEC HOME USE POCT GLUCOSE Routine 02/11/2020 8:49 AM EDT 02/11/2020 12:49:[address] [facility] BLOOD COUNT COMPLETE AUTOMATED CBC Timed 02/11/2020 5:30 A M EDT 02/11/2020 09:30:[address] [facility] MAGNESIUM MAGNESIUM Timed 02/11/2020 5:30 AM EDT 02/11/2020 09:30:[address] [facility] DRUG SCREEN QUALITATIVE VANCOMYCIN VANCOMYCIN, TROUGH STAT 02/11/2020 5:30 AM EDT 02/11/2020 09:30:00 AM EDT [facility] BASIC METABOLIC PANEL CALCIUM TOTAL BASIC METABOLIC PANEL Timed 02/11/2020 5:30 AM EDT 02/11/2020 09:30:00 AM EDT [facility] GLUC BLD GLUC MNTR DEV CLEARED FDA SPEC HOME USE POCT GLUCOSE Routine 02/10/2020 5:13 PM EDT 02/10/2020 09:13:[address] [facility] GLUC BLD GLUC MNTR DEV CLEARED FDA SPEC HOME USE POCT GLUCOSE Routine 02/10/2020 3:21 PM EDT 02/10/2020 07:21:[address] [facility] GLUC BLD GLUC MNTR DEV CLEARED FDA SPEC HOME USE POCT GLUCOSE Routine 02/10/2020 1:05 PM EDT 02/10/2020 05:05:[address] [facility] GLUC BLD GLUC MNTR DEV CLEARED FDA SPEC HOME USE POCT GLUCOSE Routine 02/10/2020 9:33 AM EDT 02/10/2020 01:33:[address] [facility] BLOOD COUNT COMPLETE AUTOMATED CBC Timed 02/10/2020 3:40 A M EDT 02/10/2020 07:40:[address] [facility] BLOOD TYPING ABO TYPE AND SCREEN Routine 02/10/2020 3:40 AM EDT 02/10/2020 07:40:[address] [facility] MAGNESIUM MAGNESIUM Timed 02/10/2020 3:40 AM EDT 02/10/2020 07:40:[address] [facility] BASIC METABOLIC PANEL CALCIUM TOTAL BASIC METABOLIC PANEL Timed 02/10/2020 3:40 AM EDT 02/10/2020 07:40:00 AM EDT [facility] GLUC BLD GLUC MNTR DEV CLEARED FDA SPEC HOME USE POCT GLUCOSE Routine 02/09/2020 6:20 PM EDT 02/09/2020 10:20:[address] [facility] GLUC BLD GLUC MNTR DEV CLEARED FDA SPEC HOME USE POCT GLUCOSE Routine 02/09/2020 10:18 AM EDT 02/09/2020 02:18:[address] [facility] INTRODUCTION CATHETER AORTA IR IS ARTERIOGRAM ILIAC SELECTIVE R outine 02/09/2020 10:05 AM EDT 02/09/2020 02:05:[address] [facility] DRUG SCREEN QUALITATIVE VANCOMYCIN VANCOMYCIN, TROUGH STAT 02/09/2020 8:30 AM EDT 02/09/2020 12:30:00 PM EDT [facility] BLOOD COUNT COMPLETE AUTOMATED CBC Timed 02/09/2020 3:00 A M EDT 02/09/2020 07:00:[address] [facility] MAGNESIUM MAGNESIUM Timed 02/09/2020 3:00 AM EDT 02/09/2020 07:00:[address] [facility] BASIC METABOLIC PANEL CALCIUM TOTAL BASIC METABOLIC PANEL Timed 02/09/2020 3:00 AM EDT 02/09/2020 07:00:00 AM EDT [facility] Catheter Introduction Aorta 02/09/2020 12:00:00 AM EDT [facility] ([facility]) Iliac Angioplasty-Initial 02/09/2020 12:00:00 AM EDT [facility] ([facility]) Iliac Angioplasty-Each Additio 02/09/2020 12:00:00 AM EDT [facility] ([facility]) Moderate Sedation Services; Same Phys Intl 15 Mins; PT >= 5 Years 02/09/2020 12:00:00 AM EDT [facility] ([facility] GLUC BLD GLUC MNTR DEV CLEARED FDA SPEC HOME USE POCT GLUCOSE Routine 02/08/2020 5:50 PM EDT 02/08/2020 09:50:[address] [facility] MRI LOWER EXTREM OTH/THN JT W/O CONTR MATRL MRI LOW E XT NO JNT WO CONTRAST LEFT Routine 02/08/2020 3:51 PM EDT 02/08/2020 07:51 :[address] [facility] GLUC BLD GLUC MNTR DEV CLEARED FDA SPEC HOME USE POCT GLUCOSE Routine 02/08/2020 2:49 PM EDT 02/08/2020 06:49:[address] [facility] GLUC BLD GLUC MNTR DEV CLEARED FDA SPEC HOME USE POCT GLUCOSE Routine 02/08/2020 12:59 PM EDT 02/08/2020 04:59:[address] [facility] XR CHEST PORTABLE XR CHEST PORTABLE STAT 02/08/2020 12:19 PM EDT 02/08/2020 04:19:[address] [facility] ECG ROUTINE ECG W/LEAST 12 LDS W/I&R ECG 12-LEAD Routine 02/08/2020 12:15 PM EDT 02/08/2020 04:15:50 PM EDT [facility] GLUC BLD GLUC MNTR DEV CLEARED FDA SPEC HOME USE POCT GLUCOSE Routine 02/08/2020 12:06 PM EDT 02/08/2020 04:06:[address] [facility] REMOVAL IMPLANT DEEP REMOVAL, STERNAL WIRE, WITH REWIRING IF IN DICATED 02/08/2020 10:31 AM EDT Protruding sternal wires, initial encounter 02/08/2020 02:31:00 PM EDT - 02/08/2020 04:18:00 PM EDT Protruding sternal wires, initial encounter [facility] Protruding sternal wires, initial encoun ter GLUC BLD GLUC MNTR DEV CLEARED FDA SPEC HOME USE POCT GLUCOSE Routine 02/08/2020 8:17 AM EDT 02/08/2020 12:17:[address] [facility] SEDIMENTATION RATE RBC AUTOMATED SEDIMENTATION RATE Routine 02/08/2020 5:30 AM EDT 02/08/2020 09:30:00 AM EDT [facility] C-REACTIVE PROTEIN C-REACTIVE PROTEIN Routine 02/08/2020 5:30 AM E DT 02/08/2020 09:30:00 AM EDT [facility] DRUG SCREEN QUALITATIVE VANCOMYCIN VANCOMYCIN, TROUGH Routine 02/08/2020 5:30 AM EDT 02/08/2020 09:30:00 AM EDT [facility] BASIC METABOLIC PANEL CALCIUM TOTAL BASIC METABOLIC PANEL Timed 02/08/2020 5:30 AM EDT 02/08/2020 09:30:00 AM EDT [facility] ECG ROUTINE ECG W/LEAST 12 LDS W/I&R 02/08/2020 12:00: 00 AM EDT [facility] ([facility]) MRI LOWER EXTREM OTH/THN JT W/O CONTR MATRL 02/08/2020 12:00:00 AM EDT [facility] ([facility]) Radiologic Exam, Chest, Single View 02/08/2020 12:00:0 0 AM EDT [facility] ([facility]) REMOVAL IMPLANT DEEP 02/08/2020 12:00:00 AM EDT [facility] ([facility]) GLUC BLD GLUC MNTR DEV CLEARED FDA SPEC HOME USE POCT GLUCOSE Routine 02/07/2020 5:32 PM EDT 02/07/2020 09:32:[address] [facility] GLUC BLD GLUC MNTR DEV CLEARED FDA SPEC HOME USE POCT GLUCOSE Routine 02/07/2020 11:59 AM EDT 02/07/2020 03:59:[address] [facility] THROMBOPLASTIN TIME PARTIAL PLASMA/WHOLE BLOOD APTT Routine 02/07/2020 10:36 AM EDT 02/07/2020 02:36:00 PM EDT [facility] PROTHROMBIN TIME PROTIME-INR Routine 02/07/2020 10:36 AM EDT 02/07/2020 02:36:[address] [facility] HEMOGLOBIN GLYCOSYLATED A1C HEMOGLOBIN A1C Routine 02/07/2020 10:35 AM EDT 02/07/2020 02:35:00 PM EDT [facility] CUL BACT XCPT URINE BLOOD/STOOL AEROBIC ISOL WOUND CULTURE Ro utine 02/07/2020 10:15 AM EDT 02/07/2020 02:15:00 PM EDT [facility] CUL BACT XCPT URINE BLOOD/STOOL AEROBIC ISOL WOUND CULTURE Ro utine 02/07/2020 10:15 AM EDT 02/07/2020 02:15:00 PM EDT [facility] CULTURE BACTERIAL ANY SOURCE ANAEROBIC ISO&ID ANAEROBIC CULTURE Routine 02/07/2020 10:15 AM EDT 02/07/2020 02:15:[address] [facility] CULTURE BACTERIAL ANY SOURCE ANAEROBIC ISO&ID ANAEROBIC CULTURE Routine 02/07/2020 10:15 AM EDT 02/07/2020 02:15:[address] [facility] GLUC BLD GLUC MNTR DEV CLEARED FDA SPEC HOME USE POCT GLUCOSE Routine 02/07/2020 8:41 AM EDT 02/07/2020 12:41:[address] [facility] BLOOD COUNT COMPLETE AUTOMATED CBC Routine 02/07/2020 5:48 A M EDT 02/07/2020 09:48:00 AM EDT [facility] BASIC METABOLIC PANEL CALCIUM TOTAL BASIC METABOLIC PANEL Timed 02/07/2020 5:48 AM EDT 02/07/2020 09:48:00 AM EDT [facility] MRI LOWER EXTREM OTH/THN JT W/O CONTR MATRL MRI LOW E XT NO JNT WO CONTRAST RIGHT Routine 02/06/2020 8:59 PM EDT 02/07/2020 12:59 :[address] [facility] MRI LOWER EXTREM OTH/THN JT W/O CONTR MATRL 02/07/2020 12:00:00 AM EDT [facility] ([facility]) GLUC BLD GLUC MNTR DEV CLEARED FDA SPEC HOME USE POCT GLUCOSE Routine 02/06/2020 6:45 PM EDT 02/06/2020 10:45:[address] [facility] GLUC BLD GLUC MNTR DEV CLEARED FDA SPEC HOME USE POCT GLUCOSE Routine 02/06/2020 12:20 PM EDT 02/06/2020 04:20:[address] [facility] GLUC BLD GLUC MNTR DEV CLEARED FDA SPEC HOME USE POCT GLUCOSE Routine 02/06/2020 9:00 AM EDT 02/06/2020 01:00:[address] [facility] BLOOD COUNT COMPLETE AUTOMATED CBC Routine 02/06/2020 6:24 A M EDT 02/06/2020 10:24:00 AM EDT [facility] BASIC METABOLIC PANEL CALCIUM TOTAL BASIC METABOLIC PANEL Routi ne 02/06/2020 6:24 AM EDT 02/06/2020 10:24:00 AM EDT [facility] GLUC BLD GLUC MNTR DEV CLEARED FDA SPEC HOME USE POCT GLUCOSE Routine 02/06/2020 12:10 AM EDT 02/06/2020 04:10:[address] [facility] POC ARTERIAL BLOOD GAS W IDANIAAMBROCIO POC ARTERIAL BLOOD GAS W ALISON R outine 02/05/2020 9:08 PM EDT 02/06/2020 01:08:[address] [facility] CREATION, BYPASS, ARTERIAL, FEMORAL TO POPLITEAL, USIN G GRAFT CREATION, BYPASS, ARTERIAL, FEMORAL TO POPLITEAL, USING GRAFT 02/05/2020 7:3 6 PM EDT claudication 02/05/2020 11:36:00 PM EDT - 02/06/2020 04:24:[address] [facility] GLUC BLD GLUC MNTR DEV CLEARED FDA SPEC HOME USE POCT GLUCOSE Routine 02/05/2020 6:58 PM EDT 02/05/2020 10:58:[address] [facility] GLUC BLD GLUC MNTR DEV CLEARED FDA SPEC HOME USE POCT GLUCOSE Routine 02/05/2020 6:36 PM EDT 02/05/2020 10:36:[address] [facility] THROMBOPLASTIN TIME PARTIAL PLASMA/WHOLE BLOOD APTT STAT 02/05/2020 4:11 PM EDT 02/05/2020 08:11:00 PM EDT [facility] 2019 NCOV AMPLIFIED 2019 NCOV AMPLIFIED STAT 02/05/2020 2:45 PM EDT 02/05/2020 06:45:00 PM EDT [facility] GLUC BLD GLUC MNTR DEV CLEARED FDA SPEC HOME USE POCT GLUCOSE Routine 02/05/2020 1:46 PM EDT 02/05/2020 05:46:[address] [facility] XR CHEST PORTABLE XR CHEST PORTABLE Routine 02/05/2020 10:47 AM EDT 02/05/2020 02:47:59 PM EDT [facility] ECG ROUTINE ECG W/LEAST 12 LDS W/I&R ECG 12-LEAD Routine 02/05/2020 10:05 AM EDT 02/05/2020 02:05:29 PM EDT [facility] LEVEL IV SURG PATHOLOGY GROSS&MICROSCOPIC EXAM [facility] HISTOLOGY Routine 02/05/2020 9:56 AM EDT 02/05/2020 01:56:[address] [facility] CTA ABDL AORTA&BI ILIOFEM W/CONTRAST&POSTPROCESS CT A NGIOGRAM ABDOMINAL AORTA AND BILATERAL RUNOFF STAT 02/05/2020 9:25 AM EDT 02/05/2020 01:25:[address] [facility] GLUC BLD GLUC MNTR DEV CLEARED FDA SPEC HOME USE POCT GLUCOSE Routine 02/05/2020 8:41 AM EDT 02/05/2020 12:41:[address] [facility] CULTURE BACTERIAL BLOOD AEROBIC W/ID ISOLATES BLOOD CULTURE R outine 02/05/2020 6:09 AM EDT 02/05/2020 10:09:00 AM EDT [facility] CULTURE BACTERIAL BLOOD AEROBIC W/ID ISOLATES BLOOD CULTURE R outine 02/05/2020 6:09 AM EDT 02/05/2020 10:09:00 AM EDT [facility] THROMBOPLASTIN TIME PARTIAL PLASMA/WHOLE BLOOD APTT Routine 02/05/2020 6:09 AM EDT 02/05/2020 10:09:00 AM EDT [facility] PROTHROMBIN TIME PROTIME-INR Routine 02/05/2020 6:09 AM EDT 02/05/2020 10:09:[address] [facility] BLOOD COUNT COMPLETE AUTOMATED CBC Routine 02/05/2020 6:09 A M EDT 02/05/2020 10:09:00 AM EDT [facility] BLOOD TYPING ABO TYPE AND SCREEN Routine 02/05/2020 6:09 AM EDT 02/05/2020 10:09:[address] [facility] COMPREHENSIVE METABOLIC PANEL COMPREHENSIVE METABOLIC PANEL Rou jw 02/05/2020 6:09 AM EDT 02/05/2020 10:09:00 AM EDT [facility] Bypass Graft Other Than Vein Femoral-Popliteal 020 12:00:00 AM EDT [facility] ([facility] Bypass Graft Other Than Vein Iliofemoral 02/05/2020 12 :00:00 AM EDT [facility] ([facility]) Radiologic Exam, Chest, Single View 02/05/2020 12:00:0 0 AM EDT [facility] ([facility]) Comp Tomogrp Angiog AB Aorta & Bilateral Iliofemoral LW Ext Runof 02/05/2020 12:00:00 AM EDT [facility] ([facility]) ECG ROUTINE ECG W/LEAST 12 LDS W/I&R 02/05/2020 12:00: 00 AM EDT [facility] ([facility]) FINE NEEDLE ASPIRATION W/O IMAGING GUIDANCE 02/02/2020 12:00:00 AM EDT [facility] ([facility]) FINE NEEDLE ASPIRATION W/O IMAGING GUIDANCE 01/26/2020 12:00:00 AM EDT [facility] ([facility]) FINE NEEDLE ASPIRATION W/O IMAGING GUIDANCE 01/17/2020 12:00:00 AM EDT [facility] ([facility]) DEBRIDEMENT BONE MUSCLE &/FASCIA 20 SQ CM/< 12/31/2019 12:00:00 AM EDT [facility] DEBRIDEMENT NAIL ANY METHOD 6/> 12/11/2019 12:00:00 AM EDT [facility] ([facility] DEBRIDEMENT SUBCUTANEOUS TISSUE 20 SQ CM/< 12/04/2019 12:00:00 AM EDT [facility] ([facility] DEBRIDEMENT SUBCUTANEOUS TISSUE 20 SQ CM/< 11/21/2019 12:00:00 AM EDT [facility] DEBRIDEMENT SUBCUTANEOUS TISSUE 20 SQ CM/< 11/14/2019 12:00:00 AM EDT [facility] ([facility] DEBRIDEMENT SUBCUTANEOUS TISSUE 20 SQ CM/< 10/11/2019 12:00:00 AM EDT [facility] ([facility] Ostectomy Partial Excision 5TH Metatarsal Head (Bunionette) 10/11/2019 12:00:00 AM EDT [facility] ([facility] DEBRIDEMENT SUBCUTANEOUS TISSUE 20 SQ CM/< 10/02/2019 12:00:00 AM EDT [facility] ([facility] Electrocardiogram Complete 09/27/2019 12:00:00 AM EDT [facility] ([facility]) DEBRIDEMENT SUBCUTANEOUS TISSUE 20 SQ CM/< 09/25/2019 12:00:00 AM EDT [facility] ([facility] REVSC OPN/PRQ FEM/POP W/STNT/ANGIOP VSL 09/19/2019 12:00:00 AM EDT [facility] ([facility]) REVSC OPN/PRQ TIB/DONALD W/ANGIOPLASTY UNI 09/19/2019 12 :00:00 AM EDT [facility] ([facility]) Moderate Sedation Services; Same Phys Intl 15 Mins; PT >= 5 Years 09/19/2019 12:00:00 AM EDT [facility] ([facility]) DEBRIDEMENT SUBCUTANEOUS TISSUE 20 SQ CM/< 08/15/2019 12:00:00 AM EDT [facility] DEBRIDEMENT SUBCUTANEOUS TISSUE 20 SQ CM/< 08/08/2019 12:00:00 AM EDT [facility] ([facility] REVSC OPN/PRQ FEM/POP W/STNT/ANGIOP VSL 07/26/2019 12:00:00 AM EDT [facility] ([facility]) Aortography Abdominal & Bilat Iliofemoral LWR Extremity Cath 07/26/2019 12:00:00 AM EDT [facility] ([facility]) Angiography Selective, Each Addtl Vessel Studied After Exam 07/26/2019 12:00:00 AM EDT [facility] ([facility]) Moderate Sedation Services; Same Phys Intl 15 Mins; PT >= 5 Years 07/26/2019 12:00:00 AM EDT [facility] ([facility]) DEBRIDEMENT SUBCUTANEOUS TISSUE 20 SQ CM/< 06/08/2019 12:00:00 AM EST [facility] DEBRIDEMENT SUBCUTANEOUS TISSUE 20 SQ CM/< 05/25/2019 12:00:00 AM EST [facility] ([facility] Revascularization,Endovascular,Transluminal Stent Placement 05/17/2019 12:00:00 AM EST [facility] ([facility] ) Revascularization,Endovascular,Transluminal Angioplasty 05/17/2019 12:00:00 AM EST [facility] ([facility], ) REVSC OPN/PRQ TIB/DONALD W/ANGIOPLASTY UNI 05/17/2019 12 :00:00 AM EST [facility] ([facility] ) Angiography Extremity Unilateral 05/17/2019 12:00:00 A M EST [facility] ([facility]) Angiography Selective, Each Addtl Vessel Studied After Exam 05/17/2019 12:00:00 AM EST [facility] ([facility], ) Moderate Sedation Services; Same Phys Intl 15 Mins; PT >= 5 Years 05/17/2019 12:00:00 AM EST [facility] ([facility], ) PARING/CUTTING BENIGN HYPERKERATOTIC LESION 2-4 2019 12:00:00 AM EST [facility] DEBRIDEMENT NAIL ANY METHOD 6/> 04/28/2019 12:00:00 AM EST [facility] ([facility] Results ID Date Data Source [id number] 04/27/2020 06:31:[facility]FORMATION[facility] Name Date of Age Gend*PT [id number] Tatianna Soto 1965 55 years F IPPT Location Admission Date/Time Visit ID Attending [id number] 04/10/20 2317 --- --- EPI ID CSN Admitting Provider [id number] Brittani Birmingham MD([id number]) Attestation signed by Brittani Birmingham MD at 04/27/2020 6:31 AMI saw and evaluated the patient and reviewed pa's note. I agree with thehistory, physical and medical decision making with the following additions,exceptions, and/or observations:Signature: TIMA Lawrenceate: April 27, 2020Time: 6:31 AM --Surgical Discharge SummaryTatianna SotoMRN: [id number] date: 04/10/2020Admitting Physician: TIMA Lawrenceischarge date and [...] Get Your MedicationsThese medications were sent to [facility] - [place], [place] [address] [address] amoxicillin-clavulanate 875-125 MG per tabletIndication for Admission: R groin infectionAdmission H&P: 54 years White or female, well known patient to thevascular surgery service with a past medical history significant for PVD andischemia, CAD (s/p quintuple bypass graft 01/16/2016), HTN, DM, COPD,hyperlipidemia, PAD, HERMAN and heavy smoker) has been [facility] ED with a right groin infection. Patient claims she [facility] ED by her home care nurses as she was having extremely foul smellingpurulent drainage and pain in the groin. Patient is not a good historian, sheclaims that the redness may have been there for about a week and the foul smellfor about 3 days. 02/05/20: Right femoral endarterectomy, Iliac to profunda femoral bypass [id number] ringed PTFE and Jump graft from the [...] and home nursing care. [facility] for poorly healing ulcers and [...] and Wednesday. She was last seen by SUPERVISOR TUBING (Karen Bar) in the cardiology office on [...] right posteriorly.Microbiology:Procedure Component Value Units Date/TimeWound culture [[id number]] Collected: 04/11/20 0050Order Status: Completed Specimen: Surgical Wound Updated: 04/14/20 0817 Specimen Description SURGICAL WOUND Special Requests NONE Gram Stain Result MANY (>25/LPF) WHITE BLOOD CELLSMODERATE (5 TO 10/OIF) GRAM POSITIVE COCCIRARE (<1/OIF) GRAM NEGATIVE RODS Culture Result -- MANY BETA HEMOLYTIC STREPTOCOCCI GROUP A ISOLATEDMANY STAPHYLOCOCCUS AUREUS(NOTE) PRELIMINARY CULTURE RESULT CALLED TO CAROLYN ON [facility] D4 AT 1147 ON04/12/20 38860. NOTE: BIOCHEMICAL IDENTIFICATION SYSTEMS WERE SET UP ON SUSPECTCOLONIES TO R/O PATHOGENS. Report Status 04/14/2020 FINAL Organism BETA HEMOLYTIC STREPTOCOCCI GROUP A ISOLATED Organism STAPHYLOCOCCUS AUREUSCulture & Susceptibility Beta hemolytic streptococci group a isolated Staphylococcus aureus SAIMA MICAmpicillin <=0.25 Pmjepsqic7Ttguikledru 0.25 SensitiveCeftriaxone <=0.12 SensitiveClindamycin <=0.25 Sensitive 0.25 Ynlswmshq6Gbepzemgrw 0.5 SensitiveErythromycin <=0.12 Sensitive <=0.25 SensitiveLevofloxacin 0.5 SensitiveLinezolid 2 SensitiveMoxifloxacin 0.25 SensitiveOxacillin <=0.25 Uigxwwzbz3Xeg G (AMP, AMOX) <=0.06 Zpnestrbx1Anbigjlvvuxm 0.5 Sensitive5 <=1 Rrgkwreig1Ulzotvavhzxh + Sulfamethoxazole <=.5/9.5 SensitiveVancomycin <=0.12 Sensitive <=0.5 [...] aureusMANY STAPHYLOCOCCUS AUREUSMRSA nasal screen by PCR [[id number]] Collected: 04/11/20 0050Order Status: Completed Specimen: Nares Updated: 04/11/20 1104 SPECIMEN DESCRIPTION NARES 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 BY PCR Comment SEE NOTES Comment: [facility] IC AT 6709 UH [id number] SU [id number].Narrative: NARES/GROIN/UMBILICAL FOR NICU PATIENTS ONLY [facility] COLLECTION MGR LOCKBlood Culture Peripheral x 1 Set (2 bottles aerobic and anaerobic) [[id number]]Collected: 04/11/20 0046Order Status: Completed Specimen: Peripheral Updated: 04/13/20 1153 Specimen Description PERIPHERAL 2 Special Requests NONE Culture Result NO GROWTH 2 DAYS Report Status PENDINGBlood Culture Peripheral x 1 Set (2 bottles aerobic and anaerobic) [[id number]]Collected: 04/11/20 0041Order Status: Completed Specimen: Peripheral Updated: 04/13/20 115 Specimen Description PERIPHERAL 1 Special Requests NONE [...] intact. No edema.Neuro: AAOx3, answers qustions appropriately, cordwood cutter helper strength equal b/l. No grossneurological deficits.Items needing [...] rce(s) Supporting Document(s) ID Date Data Source [id number] 04/15/2020 05:35:00 PM EST [facility] ([facility]) Name Value Range Interpretation Code Description Data Tisha rce(s) Supporting Document(s) Laboratory test finding (navigational concept) 113 mg/dL 70-99 [facility] ([facility]) PERFORMED BY [facility] CLINICAL STAFF ID Date Data Source [id number] 04/15/2020 04:09:00 PM EST [facility] ([facility]) Name Value Range Interpretation Code Description Data Tisha rce(s) Supporting Document(s) Sodium [Moles/volume] in Serum or Plasma 144 mmol/L 136-145 [facility] ([facility]) Potassium [Moles/volume] in Serum or Plasma 4.2 mmol/L 3.6-5.2 [facility] ([facility]) Chloride [Moles/volume] in Serum or Plasma 107 mmol/L 100-108 [facility] ([facility]) Urea nitrogen [Mass/volume] in Serum or Plasma 19 mg/dL 7-24 [facility] ([facility]) Anion gap in Serum or Plasma 8 mmol/L 7-16 [facility] ([facility]) Carbon dioxide, total [Moles/volume] in Serum or Plasma 29 mmol/L 22 -31 [facility] ([facility]) Creatinine [Mass/volume] in Serum or Plasma 0.96 mg/dL 0.60-1.00 [facility] ([facility]) Glucose [Mass/volume] in Serum or Plasma 246 mg/dL 70-99 [facility] ([facility]) Urea nitrogen/Creatinine [Mass Ratio] in Serum or Plasma 19.8 1 0.0-20.0 [facility] ([facility]) Calcium [Mass/volume] in Serum or Plasma 9.0 mg/dL 8.4-10.2 [facility] ([facility]) Glomerular filtration rate/1.73 sq M pre dicted among blacks [Volume Rate/Area] in Serum or Plasma by Creatinine-based formula (MDRD) Laboratory test result [facility] ([facility]) Glomerular filtration rate/1.73 sq M pre dicted among non-blacks [Volume Rate/Area] in Serum or Plasma by Creatinine-based formula (MDRD) Laboratory test result [facility] ([facility]) Glomerular filtration rate/1.73 sq M pre dicted among non-blacks [Volume Rate/Area] in Serum or Plasma by Creatinine-based formula (MDRD) Laboratory test result [facility] ([facility]) -- NORMAL KIDNEY FUNCTION OR MILD DISEASE - GFR >OR= 60 CHRONIC KIDNEY DISEASE - GFR 15 - 59 RENAL FAILURE - GFR <15 Est. GFR calculation based on the MDRD study equation, which assumes a steady state for creatinine. Est. GFR should not be used for medication dosing. ID Date Data Source [id number] 04/15/2020 03:17:00 PM EST [facility] ([facility]) Name Value Range Interpretation Code Description Data Tisha rce(s) Supporting Document(s) Leukocytes [#/volume] in Blood by Automated count 8.0 10*3/uL 4.1-11. 0 [facility] ([facility]) Hemoglobin [Mass/volume] in Blood 12.8 g/dL 12.0-16.0 [facility] ([facility]) Erythrocytes [#/volume] in Blood by Automated count 4.62 10*6/uL 4.00 -5.40 [facility] ([facility]) Hematocrit [Volume Fraction] of Blood by Automated count 38.4 % 3 6.0-47.0 [facility] ([facility]) Erythrocyte mean corpuscular hemoglobin [Entitic mass] by Automated count 27.7 pg 27.0-32.0 [facility] ([facility]) Erythrocyte mean corpuscular volume [Entitic volume] by Auto mated count 83.1 fL 80.0-95.0 [facility] ([facility] ) Platelets [#/volume] in Blood by Automated count 243 10*3/uL 150-450 [facility] ([facility]) Erythrocyte distribution width [Ratio] by Automated count 14.4 % 10.5-14.5 [facility] ([facility]) Platelet mean volume [Entitic volume] in Blood by Sandip-Vesna 9.3 fL 7.1-10.7 [facility] ([facility]) Erythrocyte mean corpuscular hemoglobin concentration [Mass/volume] by Automated count 33.4 g/dL 32.0-36.0 [facility] ([facility]) ID Date Data Source [id number] 04/15/2020 12:35:56 PM EST [facility] Name Value Range Interpretation Code Description Data Tisha rce(s) Supporting Document(s) POC NOVA GLU 113 mg/dL (70-99) H [facility]FORMED BY [facility] STAFF ID Date Data Source [id number] 04/15/2020 08:43:54 AM EST [facility] Name Value Range Interpretation Code Description Data Tisha rce(s) Supporting Document(s) POC NOVA GLU 215 mg/dL (70-99) H [facility] BY [facility] STAFF ID Date Data Source [id number] 04/15/2020 11:10:00 AM EST [facility] Name Value Range Interpretation Code Description Data Tisha rce(s) Supporting Document(s) SODIUM 144 mmol/L (136-145) [facility] POTASSIUM 4.2 mmol/L (3.6-5.2) [facility] CHLORIDE 107 mmol/L (100-108) [facility] CO2 29 mmol/L (22-31) [facility] ANION GAP 8 mmol/L (7-16) [facility] UREA NITROGEN 19 mg/dL (7-24) [facility] CREATININE 0.96 mg/dL (0.60-1.00) [facility] BUN/CREAT RATIO 19.8 RATIO (10.0-20.0) [facility] GLUCOSE 246 mg/dL (70-99) H [facility] CALCIUM 9.0 mg/dL (8.4-10.2) [facility] GFR >60 ml/min/1.73m2 (>59) [facility] GFR ( AMER) >60 ml/min/1.73m2 (>59) [facility] GFR INTERPRETATION [facility] --NORMAL KIDNEY FUNCTION OR MILD DISEASE - GFR >OR= 60CHRONIC KIDNEY DISEASE - GFR 15 - 59RENAL FAILURE - GFR <15 Est. GFR calculation based on the MDRDstudy equation, which assumes a steadystate for creatinine. Est. GFR should notbe used for medication dosing. ID Date Data Source [id number] 04/15/2020 10:18:04 AM EST [facility] Name Value Range Interpretation Code Description Data Tisha rce(s) Supporting Document(s) WBC 8.0 10*3/uL (4.1-11.0) [facility] RBC 4.62 10*6/uL (4.00-5.40) [facility] HGB 12.8 g/dL (12.0-16.0) [facility] HCT 38.4 % (36.0-47.0) [facility] MCV 83.1 fL (80.0-95.0) [facility] MCH 27.7 pg (27.0-32.0) [facility] MCHC 33.4 g/dL (32.0-36.0) [facility] RDW 14.4 % (10.5-14.5) [facility] PLT 243 10*3/uL (150-450) [facility] MPV 9.3 fL (7.1-10.7) [facility] ID Date Data Source [id number] 04/15/2020 06:25:02 AM EST [facility] Name Value Range Interpretation Code Description Data Tisha rce(s) Supporting Document(s) POC NOVA GLU 268 mg/dL (70-99) H [facility] [place] [facility] STAFF ID Date Data Source [id number] 04/15/2020 06:24:57 AM EST [facility] Name Value Range Interpretation Code Description Data Tisha rce(s) Supporting Document(s) POC NOVA GLU 208 mg/dL (70-99) H [facility] [place] [facility] STA[facility] ID Date Data Source [id number] 04/14/2020 08:35:16 PM EST [facility] Name Value Range Interpretation Code Description Data Tisha rce(s) Supporting Document(s) POC NOVA GLU 153 mg/dL (70-99) H [facility] STA[facility] ID Date Data Source [id number] 04/14/2020 07:06:43 PM EST [facility] Name Value Range Interpretation Code Description Data Tisha rce(s) Supporting Document(s) POC NOVA GLU 92 mg/dL (70-99) [facility] STA[facility] ID Date Data Source [id number] 04/14/2020 01:18:00 PM EST [facility] ([facility]) Name Value Range Interpretation Code Description Data Tisha rce(s) Supporting Document(s) Special Requests Laboratory test result [facility] ([facility]) Specimen Description Laboratory test result [facility] ([facility]) Laboratory test finding (navigational concept) Laboratory test result [facility] ([facility]) Many Beta Hemolytic Streptococci Group A Isolatedmany Staphylococcus Aureus(Note) Preliminary Culture Result Called To Carolyn On [facility] D4 AT 1147 On 04/12/20 62275. Note: Biochemical Identification Systems Were Set Up On Suspect Colonies To R/O Pathogens. Report Status Laboratory test result [facility] ([facility]) Microscopic observation [Identifier] in Unspecified sp ecimen by Gram stain Laboratory test result [facility] ([facility]) Many (>25/LPF) White Blood Cellsmoderate (5 To 10/Oif) Gram Positive Coccirare (<1/Oif) Gram Negative Rods Organism Laboratory test result [facility] ([facility]) Organism Laboratory test result [facility] ([facility]) ID Date Data Source [id number] 04/14/2020 12:57:12 PM EST [facility] Name Value Range Interpretation Code Description Data Tisha rce(s) Supporting Document(s) POC NOVA GLU 245 mg/dL (70-99) H [facility] STAFF ID Date Data Source [id number] 04/14/2020 10:34:08 AM EST [facility] Name Value Range Interpretation Code Description Data Tisha rce(s) Supporting Document(s) POC NOVA GLU 216 mg/dL (70-99) H [facility] STA[facility] ID Date Data Source [id number] 04/14/2020 10:05:33 AM EST [facility] Name Value Range Interpretation Code Description Data Tisha rce(s) Supporting Document(s) POC NOVA GLU 146 mg/dL (70-99) H [facility] STA[facility] ID Date Data Source [id number] 04/14/2020 09:41:10 AM EST [facility] Name Value Range Interpretation Code Description Data Tisha rce(s) Supporting Document(s) POC NOVA GLU 119 mg/dL (70-99) H [facility] STA[facility] ID Date Data Source [id number] 04/14/2020 08:44:06 AM EST [facility] Name Value Range Interpretation Code Description Data Tisha rce(s) Supporting Document(s) POC NOVA GLU 42 mg/dL (70-99) LL [facility] ID Date Data Source [id number] 04/14/2020 09:37:31 AM EST [facility] Name Value Range Interpretation Code Description Data Tisha rce(s) Supporting Document(s) SODIUM 145 mmol/L (136-145) [facility] POTASSIUM 4.2 mmol/L (3.6-5.2) [facility] CHLORIDE 105 mmol/L (100-108) [facility] CO2 29 mmol/L (22-31) [facility] ANION GAP 11 mmol/L (7-16) [facility] UREA NITROGEN 17 mg/dL (7-24) [facility] CREATININE 0.69 mg/dL (0.60-1.00) [facility] BUN/CREAT RATIO 24.6 RATIO (10.0-20.0) H [facility] GLUCOSE 39 mg/dL (70-99) LL [facility] ALERTED CRITICAL RESULT LIOR([id number] )[place] D4 [place] [address] ON 213980 AT 0908 [place] [address] CALCIUM 8.8 mg/dL (8.4-10.2) [facility] GFR >60 ml/min/1.73m2 (>59) [facility] GFR ( AMER) >60 ml/min/1.73m2 (>59) [facility] GFR INTERPRETATION [facility] --NORMAL KIDNEY FUNCTION OR MILD DISEASE - GFR >OR= 60CHRONIC KIDNEY DISEASE - GFR 15 - 59RENAL FAILURE - GFR <15 Est. GFR calculation based on the MDRDstudy equation, which assumes a steadystate for creatinine. Est. GFR should notbe used for medication dosing. ID Date Data Source [id number] 04/14/2020 07:54:48 AM EST [facility] Name Value Range Interpretation Code Description Data Tisha rce(s) Supporting Document(s) WBC 10.6 10*3/uL (4.1-11.0) [facility] RBC 4.89 10*6/uL (4.00-5.40) [facility] HGB 13.2 g/dL (12.0-16.0) [facility] HCT 40.2 % (36.0-47.0) [facility] MCV 82.4 fL (80.0-95.0) [facility] MCH 26.9 pg (27.0-32.0) L [facility] MCHC 32.7 g/dL (32.0-36.0) [facility] RDW 14.5 % (10.5-14.5) [facility] PLT 264 10*3/uL (150-450) [facility] MPV 9.1 fL (7.1-10.7) [facility] ID Date Data Source [id number] 04/13/2020 06:28:21 PM EST [facility] Name Value Range Interpretation Code Description Data Tisha rce(s) Supporting Document(s) POC NOVA GLU 164 mg/dL (70-99) H [facility] ID Date Data Source [id number] 04/13/2020 03:34:00 PM EST [facility] ([facility]) Name Value Range Interpretation Code Description Data Tisha rce(s) Supporting Document(s) Vancomycin [Mass/volume] in Serum or Plasma --trough 14.9 ug/mL 10.0- 20.0 [facility] ([facility]) ID Date Data Source [id number] 04/13/2020 01:05:22 PM EST [facility] Name Value Range Interpretation Code Description Data Tisha rce(s) Supporting Document(s) POC NOVA GLU 120 mg/dL (70-99) H [facility] ID Date Data Source [id number] 04/13/2020 09:06:17 AM EST [facility] Name Value Range Interpretation Code Description Data Tisha rce(s) Supporting Document(s) POC NOVA GLU 97 mg/dL (70-99) [facility] ID Date Data Source [id number] 04/13/2020 10:34:51 AM EST [facility] Name Value Range Interpretation Code Description Data Tisha rce(s) Supporting Document(s) VANCOMYCIN TROUGH 14.9 ug/mL (10.0-20.0) [facility] ID Date Data Source [id number] 04/13/2020 10:34:51 AM EST [facility] Name Value Range Interpretation Code Description Data Tisha rce(s) Supporting Document(s) SODIUM 145 mmol/L (136-145) [facility] POTASSIUM 4.4 mmol/L (3.6-5.2) [facility] CHLORIDE 105 mmol/L (100-108) [facility] CO2 29 mmol/L (22-31) [facility] ANION GAP 11 mmol/L (7-16) [facility] UREA NITROGEN 15 mg/dL (7-24) [facility] CREATININE 0.68 mg/dL (0.60-1.00) [facility] BUN/CREAT RATIO 22.1 RATIO (10.0-20.0) H [facility] GLUCOSE 94 mg/dL (70-99) [facility] CALCIUM 8.9 mg/dL (8.4-10.2) [facility] GFR >60 ml/min/1.73m2 (>59) [facility] GFR ( AMER) >60 ml/min/1.73m2 (>59) [facility] GFR INTERPRETATION [facility] --NORMAL KIDNEY FUNCTION OR MILD DISEASE - GFR >OR= 60CHRONIC KIDNEY DISEASE - GFR 15 - 59RENAL FAILURE - GFR <15 Est. GFR calculation based on the MDRDstudy equation, which assumes a steadystate for creatinine. Est. GFR should notbe used for medication dosing. ID Date Data Source [id number] 04/13/2020 10:02:33 AM EST [facility] Name Value Range Interpretation Code Description Data Tisha rce(s) Supporting Document(s) WBC 8.1 10*3/uL (4.1-11.0) [facility] RBC 4.72 10*6/uL (4.00-5.40) [facility] HGB 12.8 g/dL (12.0-16.0) [facility] HCT 38.9 % (36.0-47.0) [facility] MCV 82.4 fL (80.0-95.0) [facility] MCH 27.1 pg (27.0-32.0) [facility] MCHC 32.9 g/dL (32.0-36.0) [facility] RDW 14.3 % (10.5-14.5) [facility] PLT 235 10*3/uL (150-450) [facility] MPV 9.0 fL (7.1-10.7) [facility] ID Date Data Source [id number] 04/12/2020 09:17:53 PM EST [facility] Name Value Range Interpretation Code Description Data Tisha rce(s) Supporting Document(s) POC NOVA GLU 218 mg/dL (70-99) H [facility] STA[facility] ID Date Data Source [id number] 04/12/2020 08:29:50 PM EST [facility] Name Value Range Interpretation Code Description Data Tisha rce(s) Supporting Document(s) POC NOVA GLU 231 mg/dL (70-99) H [facility] ID Date Data Source [id number] 04/12/2020 06:17:48 PM EST [facility] Name Value Range Interpretation Code Description Data Tisha rce(s) Supporting Document(s) POC NOVA GLU 264 mg/dL (70-99) H [facility] ID Date Data Source [id number] 04/12/2020 02:41:17 PM EST [facility] Name Value Range Interpretation Code Description Data Tisha rce(s) Supporting Document(s) POC NOVA GLU 182 mg/dL (70-99) H [facility] ID Date Data Source [id number] 04/12/2020 02:13:49 PM EST [facility] Name Value Range Interpretation Code Description Data Tisha rce(s) Supporting Document(s) POC NOVA GLU 148 mg/dL (70-99) H [facility] ID Date Data Source [id number] 04/12/2020 01:54:14 PM EST [facility] Name Value Range Interpretation Code Description Data Tisha rce(s) Supporting Document(s) POC NOVA GLU 62 mg/dL (70-99) L [facility] ID Date Data Source [id number] 04/12/2020 01:44:14 PM EST [facility] Name Value Range Interpretation Code Description Data Tisha rce(s) Supporting Document(s) POC NOVA GLU 43 mg/dL (70-99) LL [facility] ID Date Data Source [id number] 04/12/2020 09:17:43 AM EST [facility] Name Value Range Interpretation Code Description Data Tisha rce(s) Supporting Document(s) POC NOVA GLU 101 mg/dL (70-99) H [facility] ID Date Data Source [id number] 04/12/2020 07:42:40 AM EST [facility] Name Value Range Interpretation Code Description Data Tisha rce(s) Supporting Document(s) SODIUM 144 mmol/L (136-145) [facility] POTASSIUM 4.1 mmol/L (3.6-5.2) [facility] CHLORIDE 107 mmol/L (100-108) [facility] CO2 27 mmol/L (22-31) [facility] ANION GAP 10 mmol/L (7-16) [facility] UREA NITROGEN 18 mg/dL (7-24) [facility] CREATININE 0.80 mg/dL (0.60-1.00) [facility] BUN/CREAT RATIO 22.5 RATIO (10.0-20.0) H [facility] GLUCOSE 83 mg/dL (70-99) [facility] CALCIUM 8.9 mg/dL (8.4-10.2) [facility] GFR >60 ml/min/1.73m2 (>59) [facility] GFR ( AMER) >60 ml/min/1.73m2 (>59) [facility] GFR INTERPRETATION [facility] --NORMAL KIDNEY FUNCTION OR MILD DISEASE - GFR >OR= 60CHRONIC KIDNEY DISEASE - GFR 15 - 59RENAL FAILURE - GFR <15 Est. GFR calculation based on the MDRDstudy equation, which assumes a steadystate for creatinine. Est. GFR should notbe used for medication dosing. ID Date Data Source [id number] 04/12/2020 07:17:18 AM EST [facility] Name Value Range Interpretation Code Description Data Tisha rce(s) Supporting Document(s) WBC 12.1 10*3/uL (4.1-11.0) H [facility] RBC 4.62 10*6/uL (4.00-5.40) [facility] HGB 12.6 g/dL (12.0-16.0) [facility] HCT 38.0 % (36.0-47.0) [facility] MCV 82.2 fL (80.0-95.0) [facility] MCH 27.2 pg (27.0-32.0) [facility] MCHC 33.0 g/dL (32.0-36.0) [facility] RDW 14.4 % (10.5-14.5) [facility] PLT 231 10*3/uL (150-450) [facility] MPV 9.0 fL (7.1-10.7) [facility] ID Date Data Source [id number] 04/11/2020 08:57:00 PM EST [facility] ([facility]) Name Value Range Interpretation Code Description Data Tisha rce(s) Supporting Document(s) Vancomycin [Mass/volume] in Serum or Plasma 28.3 ug/mL [facility] ([facility]) THERAPEUTIC RANGE IS ONLY AVAILABLE FOR PEAK AND TROUGH SPECIMENS. RANDOM LEVEL RESULTS MUST BE INTERPRETED BY THE PHYSICIAN. ID Date Data Source [id number] 04/12/2020 08:27:39 AM EST [facility] Name Value Range Interpretation Code Description Data Tisha rce(s) Supporting Document(s) POC NOVA GLU 212 mg/dL (70-99) H [facility] [place] [facility] STA[facility] ID Date Data Source [id number] 04/11/2020 06:20:28 PM EST [facility] Name Value Range Interpretation Code Description Data Tisha rce(s) Supporting Document(s) POC NOVA GLU 251 mg/dL (70-99) H [facility] ID Date Data Source [id number] 04/11/2020 04:05:00 PM EST [facility] ([facility]) Name Value Range Interpretation Code Description Data Tisha rce(s) Supporting Document(s) MRSA by PCR Laboratory test result [facility] T ([facility]) Specimen Description Laboratory test result [facility] ([facility]) Laboratory comment [Text] in Report Narrative Laboratory test result [facility] ([facility]) RESULT(S) CALLED TO AND READ BACK BY MILLY SUNSHINE [facility] D4 AND EMAILED TO [facility] IC AT [id number] [id number]. ID Date Data Source [id number] 04/11/2020 01:34:14 PM EST [address] [id number] Name: Tatianna MccarthyB: 1965Sex: FOrdering Provider: BRITTANI Shook Prov: BRITTANI Mclean Provider: Procedure Performed: CT ANGIOGRAM ABDOMINAL AORTA AND BILATERAL RUNOFFExam Date: 04/11/2020 09:11MRN: [id number] Number: [id number] Class: : CT angiogram of the abdominal aorta, pelvis, and bilateral lower extremities.Indication: Discoloration or erythema; Lower extremity; Bilateral; Prior surgery; Surgery date: 6+ months; Surgery type: Graft; Additional info: Ac abebe lymphangitis of groinTechnique: Imaging protocol: CT [...] adjacent right groin. Prior stent within the [place] superficial femoral artery which is occluded. Femoral [...] rce(s) Supporting Document(s) ID Date Data Source [id number] 04/11/2020 12:28:51 PM EST [facility] Name Value Range Interpretation Code Description Data Tisha rce(s) Supporting Document(s) POC NOVA GLU 182 mg/dL (70-99) H [facility] ID Date Data Source [id number] 04/11/2020 11:53:52 AM EST [facility] Name Value Range Interpretation Code Description Data Tisha rce(s) Supporting Document(s) POC NOVA GLU 93 mg/dL (70-99) [facility] ID Date Data Source [id number] 04/11/2020 11:40:21 AM EST [facility] Name Value Range Interpretation Code Description Data Tisha rce(s) Supporting Document(s) POC NOVA GLU 57 mg/dL (70-99) L [facility] ID Date Data Source [id number] 04/11/2020 11:24:52 AM EST [facility] Name Value Range Interpretation Code Description Data Tisha rce(s) Supporting Document(s) POC NOVA GLU 48 mg/dL (70-99) LL [facility] ID Date Data Source [id number] 04/11/2020 08:37:[address] [facility] Name Value Range Interpretation Code Description Data Tisha rce(s) Supporting Document(s) EKG [facility] ZLDPKk2nNiPLIwQmb7SoGuLmLFXcSE3edih7C9Q1aCCjU7EfkSWnd1ggF5UpY4UvDWVyLGPRHH6RnSKx jb2 [file] [facility] client services+plJKGlU90QX8hBya50eJun1ZCudg8WnQFPmOHwyzUsObU8mpXLYD8+KT0Im06OtHw1ttwmGB54hfr [file] j2h5h3DmGCDUIZLNsSwu7E/Ht6HSXTXrkATKVVDanV jF0zS30FCtCFTumDOa2Hvw6vKjYVu7yH5GcjwSgpDnLMdSWBp2Fjb/TgmSbHcE3Wzl1pAFqO0Q5fk97p hENKbw4avD/SLAB CONDITIONER SUPERVISOR/cxpnn2f2Xwak2fbXafNppGuoxcaFc3k5VD3B3hpu64iuVB6eTP7cmjBtDxFzqg7Je [file] paula+vGi5sz2Kd/iH3unAwqrHD/1a0CUUHMIaufBOmc5Wz52zkZhfiz5BE9zZRVdjVU+dR/pjudkMFKUM lDLA/solderer torch/vleIu2Bhf8DA0rtCHijSJUCqxuh41kdWWXADwWVpOxjwSxL2WyuI7ZAus1yhjSjFFv9C1yF J1RkLB0X73QhRafm/oPgsDS6fFBgIc/pj+VGNrlxLh kC0ERbOVipL7HwjtpdnXSMPQ8nTmLaF+ScVC9ZT7TpJAwHCJJXGnyX/nsbXsB6EneF754P523u/LHcfc VyjyxRysp5jQcbhscgCFYuAthzhk8jD2e3N4Gyd12Wr3Y+NPIe4GMD6Z3pz/oI6Uxea8Loe/apkJnc63 WD/lhG+kO4CPnGqy9NUdoSxxKZoDY4N5sHTbc+wUh/ TGEpKp1awgWCkYl7vGg5cfgJTfWvf0b0T/0p9ZivDYUXFFJrVaRxapihuj3X0EJIQszTX/2xJDfYxRnp j+DCTlb2eA1J6QVC9J/j6wRTv7LEFTEG5AuXFMYoO5K/ngdtgCUKcEfIZZYjuqf6RJ3QKzDcYSTPL7tx NuzijPDHkoAp/jT5WP2p5GxTTruWnk9p/DS11ibG3c r8JVQ3wVXbGhffnFguKy5A9Yut4k4dIpwCLAAQO/yxpNIi/FTJeFXPR6MtWS0WPzaB+/HMzi1/w3Ep3x aEoQQ3JIYgwJyg4aGT3n3xXLwV0GeEg1Tot0BsnRtMKqnvldCr07zWyYv8TnKIZ2pMR/+bRCw6JiyRUA T1zkMfs/5YxoDfvpH+WPJfEGDlgffOI/yxVATjQDgO tFGI2oQV+OYFqYb0dsEoB0K/cYQ/vifBLIwpULiC16CZ/cQR/hpqLxaTFTAZWU2o8T/lUQYpkxScmUbY Bgl6ejOExj8cJyjSekiOSczuKEraPawAAywnGXyQF2G+4gh/ZGCHC7OVsHOSqqS7A4s7J9ji87JvvzAE deXBRWCZyqGCj0TRado/I/yx5JE0/CNgvsvodW1RnW RwC/uJNzJIwdk5/DB0xaD6yOuSvtPCeV05bd/Hb4xHWifVguHtDJ1aOTcC3fuZRg1z+VDcvVM2625Thv kvAQdTeYrVuNnUkHbVMZrvT9EQqO5avDXIVDcn2NGtLNMGjGdZqhtUML5qekMEAeepItcCP6FWyyG/hD +ZK6Q3PV1zAiIyfvW45cQc1sRH499l4u7cwYeqSBnu nKzR813w/pNeXv3zKOUpGHv5W9wqoAndBxHZe/rESX1i+rL87EuRCAdkHY+xjZYHMxDhUbW5CSwKnl0D yMFfG2x/LLEH0x/IXJ1oLWW9jPDSMrTg0+dC4FfDrcIcaS8IV5lFBurbLidlB5oRCQBpk7HKqUqKVoG4 h2KClqXyHbkDTWsOAVYfWDPJBuefv+Vm4ziA/solderer torch/l esDZsN50Y4Oz7f6IoVWUjH5wtGFrUfYB6QMDgXneQPtej6auucKMFC8B0fjPqZcawiH8vMW7S/lptNWI +DhtrNOnuWBYKN2SXZDPxxxR1ykxkxgz4fzK6RljFhNZAmZkbqnSCZyyuFIMQdIZ+E40AoA+E4BYWXsy IkTgx/LAkWwh/LXW4F+XI6yzuLUjLXqwgY4aPEH777 lNEYweq/kI5RO9M/uagWIBainiLnKgKbc8x36ukn0azRckrOS/4rUFmnG7dp/aTOK8X4EXz/HM5ciE5q Lkk8iYbELqhKAzynuCXpMCAk6u0+sC7DMpCj5J5Lub3AkwP11RDA9ne5O4nU2gCwr/eT6MmSj93Mc8x+ ILCE0RfnqhSZTN+Y/lheBP/g9u9Sxsygmt1PaDf9vy TsF7X0Xu77nlvB9HGMg0MV7hc53kogW4ehX9NRHXhG82VF464C430aAZMk2Iw58qpptZ2YEM0cX5Uv6T s05Ch3legHYYIsArCrKjMcB7CeC9PCR0iZicDGXsXu/bHEIA9/EXeNZacp5A1Q4ZhCE/IybpBCWHq8B6 lrCuGPJY//9K8ubRYL2SlRXgl8r8RyaBwwxKejxeio w/0quX6P3u9FnxSO22lVpshK+3SA2pAnzvsE7WHTcyswwiNnjoV8Dsd1R9egHMbgFIp9C0epw/gdjGyO 62QIXhBgLGwZx1fWPN802t35k2UnkCuG/qfcm4ynbfdQH2ueST5z4A3qz+BwYG3VksRWcuyTIAKfL94e INZoji5jc5gwXaHQOn7VLoUJMc4XOiwtnnTIMkRkvE X1sQXEM+lV7eWY7qJKHXPouc8/BCmUzY2I/dcil9nqRbBGNCZnip1/LI+nBOMFzcB149aNdybpyZG4BU oJ8H5AWBHoieM+CHuukGQITyLC5X/aKFhSOA9UGtFXirck/UG5JvcuiJ7N+7eAdYgUymCkrlDhy5sLUu TGF6jhLWATY8rPOlOXd9SkYIjgs0YQaEM/EU7FFyV4 g/THsjMC/SY9T6uvQztlR9lvnnBJOjFLthhOiY6KZjnfNWGAOtKoGzmiHfcGk0HWKpmUBFWpcB3IPjfX TqKojVHOkU7srjRlt9JUPjrfUQRQAd9aV4n/AEhZbwpBTEF9vTPIsmwbuq9Nqf8fVXXZdcq19E/lLuu6 BEHF6b8Toxra/EAsfKQ1lSy8Z3mNagXQZNdSpPyLE2 tJFDQ8nsXvsep/QHNdUZJfCeM3xbEcgqs/CZ3khvTpcjSteZo3NtK6JuazlKfIhrKbD/itWdLZ7DrNPf k4N6Y/xjkOwPEe0TT5zEHNbXSI/O68+D309kwcUp4SrprKbIxcw+nLiYymozOLY8rSiGTdN4Ur7LY+WL Zx5TcTLAKctFdEZWUDxcmtE05ceB83RHaHfv/LK3NY xkgBRgp/LDnrwx/LqvB5MsJ1rXbvE3RT25Zal/NBVBAH9ZNFjIiMNBYmU8YHNUWzvq+WipBCGXTcSwt/ KGse3RoKPUqkle9g9ZrK+GH6ZkAYGAQK9OwY19I5A3a9VqzbWHQANSs8eKdsf0GrITFDJPxPrW+4g3H9 sdyIvCNc+xF4nGbZtN+MRDxS13CS72KA/ShQ7Qjcc7 IXbFlw4UbszkQC8qEekhResdD/6uF9cj3bf+G0G3q9tv5KIkUKpjeS9G9jYpyfv+VKZ+UfIhtkwRs7m5 3huJ5J9rRV7aLFJ4cryKmMiUVxzORMQCmIAxBK6OiuqyDHoJPSgNOI7w7Y3u9Dlkv4WepvpfrdQjoXuJ 3VwdJcBvyV0b/ZCqnnVhqyr2FjWkF2AOyj+qX2YZC9 DZeKm3ovK+ET0FFOwXYbVlV+Hg1sIHd2gbH41bySU9odRIw/LPnsKfyxpNIi/BXgq9ycweZ+Nfi5M4vl QPhjGScr/RGWGvv4CqpWlvwrXImvq/4h1Slk9g4jpPIM69psR4g9V2iqtUG/JMxCPjibbvup2P3wj3IV F7tZDoMxVA+7mnE7mz4NWw8RB3e3rCO5bfdabJoVIe Ojx5PIO8IhI7m+4l7GYbbSN2NwfmUxmNFMod/Fs77quJ22pEfUt+BPMcm6hbdqn4LfJGEBykkF+GN5ZY oA7EkzlR+NJvoksJD3DsytL7FcUeFhzUayJcO1osdBtLkws+LEgJnHYpc4KVILYlMttY+Jl35fUWEoqr XeKiTNiZwFtES4S0rL7O2dJNN/lhfppOD+QfpjeRFS JinAB+GI5NT65YXsGOX1EphfYCBs2j4Ak/3rf/37H3/L4ted/v1///kf/6f/z3/+/f/++d///penr/Er 9d//7mlyb6Irqn2OzhsBr/NgVcVakahkzDq0iZXbfGfMv6ReJMTj4gvBDdNlTowJDgJKz29QS0Z95lnL UGvB5A8Mi5KivCnf/2aXQ4l6R2UY2dk8bY88j8FetW T0d6C/YyG/IL8g/0b+anyp40NjHdl/Gfb+rmtH0r4GmMF//93oTNs2/ykVot6Q8BxOX/z1d4pF+Je+pv /kDrQ5tSAPf+k7xs+IAU260ZYr+rfu9fCFL8d5BT574J2fq1xY/QTh4V/6D696+Qzt1dZZ0w86+4MOka 5feusR/vicCH/5QHjezZ1X4NKGTau8OV/1uvvu4A+4 OSYxrQ8MZK6ZvPrza/D/rlH/+5oNYaQvpC+qX49aFCUogi+/Wdeu+eHoyrtgmJp5iG/kiJoQsLbJ3eLm fklvCBf/D+snPhmL41Eq5h/wWci/3VL6R3mYAw0Z8Q2cHHO0KVdA5u/yb0gK1IffmnX+8f/p3cGvJzfe fSD/169uXjnBJoj4zxDDF7yGw+75dZIml4HxcAd4VO IP0rE+c1V37wz4tYv567Z7TxoRz52p+EvXCHt/bxj5J/JPpC/kX0j3/p4Mf+b5xOZJdo45ro+Zx/ubdt K//pdf39P2/jdkS0pm/I9/tfBwpX+Z5eobzwRat6J4Gl282PSo/x0To0vium/Sv/7Se0u2A98R5bYklP mlbpS3n+ZL04uckf36r0Lr+1DaL0+kK/B3xjIKCY6a V8f7G+Gr9OhnCt46/H4tIf753mtFhx/Vjyic46b44td/aQ7O+6sZ/lGhBhHzs9R//b1h72+KRJtrY03B iVQLxu1C//GLoRr7fp3t51nsS0Tnt7d/6kojZrg39/hTkZfu/2++t+5Sefz/dJV45N2AcrWV8hi++xuR HAP+KNMKdL1VnYt5/x1Rdr//3Z+NmHOjg9cuJW+8+d OQl+7/40zmdpmBIO46V77JAk9l/yg+jc4xVdvPmBvQs/irBPG2e6h82eitZ395yAVF/jq+fqvX3Zjrzb Zv29vuCd3a+h8H/l/HV/B2TfRX5NBu65oYy6p+9qPCb/z7y4+XX5C+U7Lnd25d+KOPHP/+6tW75zEZqa 76i4/XCB8n1jfj7+xNo72eynbJR8dmpwGgUj7jPp1e At97ntk/wWeBv8/rlP040Bvimn/8ni8FNibCG71aLZ1aKLT/+Mo/CT0U45a9410NUTpQizT5gG+Wdx4a ljSr2ODtZj/I5cLN1s/+fkDjC3/9twqC4bV44ud7QfYBR2tAY2pSj3mwiLiNni68Q5SsUs9Y+O7fB3aF HYmvv/t+Jaah6reZrm4n1Cdpz6gv/0YTX7ES/vV3z6 uM/jBzami/9PjvHF/aZNQ0rp2oiJLp0QiiIt+p4yuN/2BlpH9GN0P//z76K268jHVUK/sET++vXV3AP/ 1r0bBotv8xNawfS/+I45zXjuF9wlI2hk5v6FoJlRd2p/USbg9iGzjW4nNFD4Tm+n3gF0mhe/5K4/5Hjq 16xXJWYv6i/6/lj94Yo4xq8WpG/JbhivLdmVH02xAa mbdWsl5f4lgZ9GdeG2+x3jq+soH1UNz17/uaqsR40ric4+n4Kvvl+Wu2SjXYOM3mJ79yR/x9/fEzi2IE B7fe29dwx/RI6up9eJC5snpwX5Dq+Vwx9ktv70xH+Hh/t76ll6HA5vizq4EO976qaKRuRb024ge5/jo2 85cXvzZnuNIdXyV/i5h6jivYn8A3Y9uIg+OrE+PE8Z Vlnl9/riRG8j60VgKfj1xAPuv9+EpG8hc/50YbvvOvtMj/nX9T5h++kpy/C03Lutvy+Tfl8+TyjT5co3 fSM8/AH9i89MWC+yrtrdcxbgTzNmonu4CVEvMURgzM/X1Fjmd/PsIY8obg/iytgG8y/PjTipxr/rLi1S Xvf/R3Ffl/+bOK/B/9HmXjr6weYg5y9IANwduG/p7i lu3ob6/e9T8yksaXO2zCHuOvKy1Go05mML1yrJs/NSJg2l8Z6Dakpyvj/lrzVT2O+ttr/vf3cEpVNV9f 4nG94la/J5TWTR6fDG1sxy2t4ru4Nxz3gvln329M/liucS2KMrLRrj41nwnq8L3nrMv7DTuhoXaUTGam v/fX9UL+HiG0ZB6trucpi1R67o2nX+TUHZq8tNspS7 EHwpawW2o8kloP/rGG3mtdo1/zlxG5X/vDiNz7/S2CJ0Ti5BdrgM/HVy/3zxyz4Y6csrkMnuU+XmUeX6 +Cp+OrFy7+wt4eui8xeS/HVy+OqqLvIpOSvI13Nu30efg2ez4/GglocfAd4ZA9brh0tj/fHV+ezBF8n8 y/z8ovfe5R1+hvV2nXXCz+Ut0u9is/+vCrw/8Lx1fH 9ST+8OHx+fr7wp4/wuL5o+zX3xv++ns0w1+6Rfjrb+g5/oPGWx9wHjYf9F5Ai6r/ZZX5fOp2+rujvxrh ropvu1Ky7gle245Olgpuq64o0w1ssUN/bgCmrWYopomy8Y60soccajir12fFS/7rd1SVxxxlCz1+nmOt yZaM2F5qPg/LnH9cggE5Lo+Ez9Qck0n4M3kx72cdTw jv/I403WTOW6q4qokpbtMWUTu8eE24dSC9y7umJiI60sbla/o0BN4oZ1V5un2XBi0jFcfDb680NEb0mi u1YsVrZG52gswtXzijfw/mBO36jkw1tU1Gx6lgU8mGoa8Q/NHfg/5aq/oSq2WTui877JGmTUEk54ult+ aiab9ec2wfuwJT3dY52zCP/rr+Sbd4juGUGw+uv7rp GM+zt2p0u6Kuj/r5zMPj50pERwUnXiX1/GHCS6//158lZH/9VUKue/9cMgdul7x4riT80GaBB8/NX3+P 1CUtk616j8MF80aiFkYz0e5/ctWC3qCXm9vJ08c/G3lH13N/qtIdoj8VgYWmmjSjEARc8nkYelfiX4+H V/0Bgl9G/ML+/RcAgxZAW1Inna6q/vpr/h/504NlIW fHV+b/yy98FOOj/9dfk8j/9feGHT+vDBd/z7eJCfrEylE3Da/AC0jgmc6LHO4N2In7HtHimPS0qq82jK XeXxrc/6awIz3Ggv/yfxzx/0ZYaxyOGs/+qgVGzFVetQAZvZ9qKwNc4OZ1Jd5VZ4rgvw4kMaeWq+OrrH diPDu+unkm+RguutPWWwF3dGhT5+tzhkO/IRFGurZq d1EKcGalLm5pPdl+3rBcPckKfBX/S+CrDPeqN/OObj16mHSs5Ir+leX5lugMWjBb6Hzye+CrDO+H3/z5 wGunlnwW+nagagipO51i3qVuSu9SzPsZzl8tnc86Ea/F/oY2euWNt25i9ZY6uuAV/PwbY/XDV/py368K /MpEnu/1Q4ccrf2ixksD4Rh+9bcCsmMdEz//rsj/nX +PBv/v/Fev00FWsubs/86/O9acD1/Jyj7ad+4Yfso2xe+7qdzw2xEa//UHAonP/L5NK8FMbaI4+t7tjw NgoC1LQ/RXmd//3+w102rgv2t/6Pgq5R/9Og45uNgJUg/uW2GxYy7Ah2LsTq4JwnUn6VqSjgW78hwbz+ Crk+Gpt6DtYxuDDf5ld7G1//ascCfE35Rfh6Cz/gQg cam/IKqajbbLaI0E08wYMZ518Fu/a72yM4H9ll/+15HC4STtgZy7/O/X/u4iuhjxSA/0//eeeF0xt94Q +dSuFc3S/oaGn2qZJcskI+V+7nwda1Nhl0aU/ffYO4/0tvD8QE559W91mUSyTv4XO5HvS+gDXpHp7aJd Zv5iL15y9y+T2pcdX+XcdHx10+y41Ap0CpfT8XXCQ8 airNX+4Tyr5dK2+jPdr/RnG/xGf+7FfqH/U2drtB3NhhOzcT1SAt80Bu5lNbAt6tfc/dPu0Ro1J0iYh/ v8VHf1yq0G7Sa3UddD6CrtZqwt3T99KZGrcy++unk+yTRb8Kwp+QS+qaLx4vl80uK7/cuT6fT696lLg+ tz8/Hp1/Z/exyadI5WY8X87pUCQr07Nrj5bd2De/tB kbG9Xv2HbdWJ+UtZUq3I2Qm+BsaIvfv7Y86R/yjwVfynga+yrP+/O/Kvh/h2th6nB18cVud6/fzH3//f DPv/WrL84F7ffp4y30cn93on7iPqnKnOPQWht/LBs6jrHlEp/jaaT7nk+JX8nFN+I//W6/jqhuv+lV/H z3XDb+GsOqJJ9GFe+240QLG9Uz4QOe+J/+pVtOcg/0 M8vCVYX+HfdMdXL/z2X7+Bf/c8tpc72sy+q/Q5fvv+3hJu8nZ1lT2FR/1dpc/xe/idk8r3Nf+Mp6Y90p /WI1G5y10HfiETKg3NlND9NFpO9VBtE/8Qi0FLL2ZsXj+KuRu8ZYL/CnmG/dlO0p9I+ou9j5mM/zf0V8 wg4oKDb5gI/UJ/J74WsLf0R/qczRUb453+h/4q+rjx /4b+SjMMPvh/HV/quFX42ZdE2a9OansKC8++84ai8mkujQFzdo+k+/h4neka3r+sRl3D6JyWy8MO3XuJ +rdjw8O2muh6dEXOAfD5GA67iQT/krzTT1r/O3/ICg31i6vZ+q9+zbFU2t2a1nEDU8KnZudad64v/M58 hWtf+PDVXf8/wOI3yC4m4MBr6Mcj0j7sCh8gM3M+7P tuuqnlh83aJg0o0vwZf6sEj5l5PI/lf+T4Kv/WkIgdQbNwuOg0VO5B4jkpHuU9xrfBcnGg+lgxzF/HVz f4Gc5Fz5r6mO/Wv0EX27MeYsuL2NQKpb/5YUU8Ai2cn0oXH/66zKDOOx0S/1f69MzsKn5D/9Pc7M3iL+ xQzsm8Sib2QvghCG/TX96wWUf5k/9qorMvwg7Eg7OL frh9h/4oii02Z/fS1+9KL7I1fVy2l+8L2/NYfqjXX3888Fm7X71Ljn271Saj6pZ3lWWjo9zJE/FdeDu+ ijPydnwVZ+Tt+CruruwPX/0WxWjDed+Ft+Mra8H/j72eb4jlf8LN7/OYzMe8h21+v4811oDJNqtC70dh gmUP7mDf/z9JX4Ch3uC32Ygp8+G1eVYZWPsi668qEA gjvfTPO/RXITfHV/nfjVP/l+CtN8P9nocwpvpXk85z5ImnuF53UhzOarv04UWAs3BVtDGGaSqZV1rtre TS1+9YHyCMC6Rl7Rvxc/+fqXNHtqjVkbR/R/Yt2s9KUAQzK5DIvh0sjDQCRU+3ziYF+kzrbKQktX8zfU mRfiCdhfAL/nvt4xNpxUR5YUoulHWDm2T9Ik6Iabc/ hnRQXuGrDD+Q/qhxY6D/Cl+le1Y/HbX+ncBXU/gq3Qv+C/61/p2j9p+n1/u6svrv0ZH4Ql0qig0xgPG3 gGmfV01wyQlY+Crd/oTT3UVpJ/gq/Qs/U62Qxi024D0d9+GK6bX+nQdfCUvMg6+y/85yD6NAs2N/PRwy Z/sjnizZAaxfe0tYz8IO7gEIJtBTh6+2XjdAHc33/C f8tf49/kSquuaOLdR0gtdlQh5qxAIbe2Gy0PWF97acopwQzsAiS38/S7G2e9huk6tpZoevLUfHk4H/FUR GRADER 1Sn9Mtdt6Hrru9O/8iiM3JynTIkwirgfu5BVgp/mf/6rnhbw/XzbN/lWU8+3tRn6sUkGoaXwzDf5KLi4 em8JX+d+Gr6/sARmOp5S1Fh9NThD/Sv/IXVM4flEvj 8VW6q7/pCs3D6zh3N/pKv0RjRS3m7f4r2YN+7umrwPQj9Gq5z20HmZuvJ91NT91km/UkUSfIwYe7Et48 N7AxFQx7s1ttviaC2C49F3NOfljys2Squt9jqF41Qx4ZrZj3+Or6n/3nUz/h8W0ALUkNt/7x1X3R+LT/ cQlRsRe4kc4FP092b1gh571cOy8Zh8+rrW98t4w+MV SLYeQcJTguhmcf5M/ZwTGI33XaP/7Dy+1vXgvzqn+r/edjwC3/e9V196uA/b9h9f+FPbtq264Qw+psh9 FqvR+i5qTc1NwfljS1zrhO+IdGe9QG9L6ZhhHkve8Gw/ZzotX+ZzjnSRv1F9Bw+G+Q73ZEbylv8NPiV2 JX1/3mu+ksqQPDzi2D3C0qrm+3TD2Ql8J7Cq33hyRP jesIPz+00xw05lqxpWyXL451ijRayqjh95B0kj+b7fvhPUkJ4D7jVBm1zUTE5R/HwVeZ/9HgX+NzjBqf Y6I5i3v2WBx+uoMhH9v96YbeEyS+l9qa71I56HQlrK7ax3T/claudia+R+8rjytxibR8v25AaTv7RIwiDIryM CI4JSyM+Zx5ZgpR20w9la+63p/oGW5gyG/zr/saxmP IFPBAk10TtPAFLUuY9Ay34mKh6Klw+Xeh8UP+h2tynf1ouQslhW5ij8LdZ+ID05yz4Zy5NMylHQYGp/I R/wB/vY07ZK7C2akm01NVi36751R4ey3/Km301Zi9h8KQ/dWoSiptPq42U9+UkQTji5apD2IWGl2xulx C+Ed9nmBq1+Uob7ya3ogM/b/3bM2/n/NdD7t/5ssp7 9d519c4u/6tzrFm1H5m7o6l/2p/C/Na/On+Ps3/lmjd/+Io9hkTBk/hsNYh3EUxBa/tUhcyGh1MUS32j h+7axTsyX9Mfrc+Strq6D9Q/Kv3r/kZs/L8b/6/cIqe4UxrX/Bg8907JzmA7/l/cy7zwCnj5vNhggzq6 Pzbas+5fpX/ST1ur787o4YbNat4+vru+Ku/6qrzrq/ Ch9i2Qk2G1im+xvjrvXl+Th19gG3t/FXLX/7u+Ku/6JsJPhA+Ejzf+YFOoP1fev189e/DVkn+QS3m0Gl BST6aa5L2m4gu/Bv/+ihpzPr4926zTwr/U3m9lUv99GD7LmU/dN1tW+zvJQfG7RiiwCS/8n0mgHnSriU +fDi0DGJil7a0e8WtG/wEnn7fwtnwlv4SY/AfSqfOj 8xo1pMUriObqREg9lpVxh875E+Fr/i98Vzaj8Gtedw8OhsD++OH1xGPs3/85BIhu3o/7Zqs3+Nf5/up1 mt16yk0i7bqR77dEGp9L33HkpF/1whurB/zrPHQJX+V6Ciq3fU55x91DG01pOT70X0xcasDU2GUIq4jw W98RjyQ6JVdU1zJ2I9Gl9b/SPet/7H0CevFpvEBz/s Game38Tr3nHU+oTZ5Ql8jlp23eqdzn7d2upbpd/275u5mtsgCXy9NaaKzkGLWuQ7fVbZtxjvVwli/uAy /qeuO9lq4MFw8ra+UYr3wj/K7wE+ZAfYl22t5kcuQmeB05293Lf8ryPhwMLE98gHk+piO8I/yE/0R+UN 3HRRadkJ9IUiRvq/XCnwcgb572469J6J/v8z36ja7p FR3hO/mY6eQ2VK0/lDfvtyvMhH/d916B/ptF6vF0S9J/1/+r0d9wAywpMdjL5W87PxkueKab/2F98mxi IP0B/5ZMa5K6yJW6td5KW3iw9M/gv+C/4V/6K8aIdvYaI/93JyfRSqkO7LGdjDsd4Nm32R9wq/Y3lvav zj9V3lLqtnZ4VR68G+0631+71vtL+1kxOabU4DieuF vFg7js0++v9uv2V/QB5u8cM2/sr/yf55l6d1c5q1sE9h5xx6oS/gP+ZJ5djC6mAtrxV+Ff8+/+Av4L4e s+w/7qPsPW+aCh8259j2Ju+gF21iOL49y/swFo333lWpm5hx5irECxDzfbh0s5oGF6pd+8TwjiX10V2p dtm/A/2Vt5gGLI4fy2zHgK/7TnT+20F2sSxvu4lOtH pfE98a5b9Q9rlP6sLY8P/pT3uuE/Dv08S2MbhF6M/g7/uu+9W91/8y1Lk6G+FvKj9+naf8e0X5sw2+71 kc3nidzUtSN5n3uf9lA64mlC6u/ohiuynz990M4M2C6nD1jhL0f9bb+8e82/p7c4kO55Xmk4C9ncdk8J 73fPef/wlcu+0/4sB43xI2z/8JHW1lH+1ie8V40/+M qnyf+sf/2T+89/nTX1/uErXxnmt/7d9p6481R7pI7Xt+gJ7iulis1tH+3G0fY8C5w905HmR03Xlpg68G Xee+7Nm6wGDXTeqd0g4n8rwu4D/qiJK5S8lt1Szrg/6Ph/F30KocsmPqT535YRr7+sy4kG5LPyt3//q7 oVvspvobzCV+iyru8znSCp8v4Nm722/IWvrhv+9Z59 C1+wj0moGkJmHl7di/NIhwM2hnKKwZ/CV+vFeH7Vd6ids+oC4Yp1UvVH/BfCr6p/4Sv1C+FayFBplX2z Fzhx5vp3C5xSokEFCfbWgbEat5B+jl1c03jfCW/3GXZM+E8vd+1m1Ub4vuAnemd96d6Yawzen+9V5ykb +GqvOj/jrUq3ZMLlE7pbTil82xb2uf58Rta3a7M77i k9QLx07/ac90m7TncRscg5wV385T8fLsvR1r5A2er204tRjnBKsFa1/b71LgDeZr1dcO0v1TkDD9BZ9e +06enl3DvuxY0o+1f9oyEfsLIB4tnYo5qUa6g3xn5dfm848Jjmw+4T/lRBWAc2LcaJ3D/PEoh23yOQk6 AYp24F/wn9o/Dy+blMzJmj8EE2Ljc4DiT/YT6w+BMY p65z/YTRqWlIu1IIVNj6Tg20bi/hqZNaBMTg81kPYct0GvcG/mAu1wirL2t77a+mxrSYkN0aQ8rccC/w +wymPC58JqoRDkD5ZKz0CUx0du+Eeub/E5Ba+6YvhHwEyIUfTT1u1VD0Yz5F/Q17P+GNh3/EbDW1UKnL TSsRJ2FuykfbaLQUUkUUg08X1zO1LaAdSQ1rC1QaHU 5SB2E5thH6ssMfS62PlxIF8L5q3BzF2ScunLqKiD3jwX+MmPvZwm81sT9GMwaxYkV/BRpxb6JeDSaMjS QllxHsfCr2u0GwYlKKdIzhG74CQDPwfS+MQLvW+8RsLnqg+JItabzBMeE20fC6VU2R9iqUpb34ECH90F 9CLbV/ar129N5Dhkx+wpvN/Herman/b0XAVEk8Qo0eU4/ [file] Kz1Lk319YPQvNOLPTui+XrjrwKMzqRkhSHQKIFTtDhW6ReCaLY0M ID Date Data Source [id number] 04/11/2020 03:58:00 PM EST [facility] Name Value Range Interpretation Code Description Data Tisha rce(s) Supporting Document(s) VANCOMYCIN RANDOM 28.3 ug/mL [facility] THERAPEUTIC RANGE IS ONLY AVAILABLE FOR PEAK AND TROUGH SPECIMENS. RANDOM LEVEL RESULTS MUST BE INTERPRETED BY THE PHYSICIAN. ID Date Data Source [id number] 04/11/2020 10:56:42 AM EST [facility] Name Value Range Interpretation Code Description Data Tisha rce(s) Supporting Document(s) SODIUM 139 mmol/L (136-145) [facility] POTASSIUM 4.3 mmol/L (3.6-5.2) [facility] CHLORIDE 108 mmol/L (100-108) [facility] CO2 27 mmol/L (22-31) [facility] ANION GAP 4 mmol/L (7-16) L [facility] UREA NITROGEN 18 mg/dL (7-24) [facility] CREATININE 0.94 mg/dL (0.60-1.00) [facility] BUN/CREAT RATIO 19.1 RATIO (10.0-20.0) [facility] GLUCOSE 238 mg/dL (70-99) H [facility] CALCIUM 8.0 mg/dL (8.4-10.2) L [facility] GFR >60 ml/min/1.73m2 (>59) [facility] GFR ([facility] AM) >60 ml/min/1.73m2 (>59) [facility] GFR INTERPRETATION [facility] --NORMAL KIDNEY FUNCTION OR MILD DISEASE - GFR >OR= 60CHRONIC KIDNEY DISEASE - GFR 15 - 59RENAL FAILURE - GFR <15 Est. GFR calculation based on the MDRDstudy equation, which assumes a steadystate for creatinine. Est. GFR should notbe used for medication dosing. ID Date Data Source [id number] 04/11/2020 10:25:22 AM EST [facility] Name Value Range Interpretation Code Description Data Tisha rce(s) Supporting Document(s) WBC 13.8 10*3/uL (4.1-11.0) H [facility] RBC 4.45 10*6/uL (4.00-5.40) [facility] HGB 12.2 g/dL (12.0-16.0) [facility] HCT 35.8 % (36.0-47.0) L [facility] MCV 80.6 fL (80.0-95.0) [facility] MCH 27.5 pg (27.0-32.0) [facility] MCHC 34.1 g/dL (32.0-36.0) [facility] RDW 15.2 % (10.5-14.5) H [facility] PLT 214 10*3/uL (150-450) [facility] MPV 9.2 fL (7.1-10.7) [facility] ID Date Data Source [id number] 04/11/2020 08:21:19 AM EST [facility] Name Value Range Interpretation Code Description Data Tisha rce(s) Supporting Document(s) POC NOVA GLU 243 mg/dL (70-99) H [facility]FOR[facility] ID Date Data Source [id number] 04/11/2020 07:06:00 AM EST [facility]) Name Value Range Interpretation Code Description Data Tisha rce(s) Supporting Document(s) Est. Average Glucose 171 mg/dL [facility]) Hemoglobin A1c/Hemoglobin.total in Blood 7.6 % 4.0-6.0 [facility] ([facility]) Performed using Siemens Dinuba immunoassa y. Care must be taken when interpreting HbA1c results in patients with a hemoglobin variant or decreased erythrocyte lifespan. Values 5.7 - 6.4% suggest prediabetes. Values >=6.5% are diagnostic for diabetes. REFERENCE: DIABETES CARE 2018: 41(S13-S27). PERFORMED AT [address] [place] [id number] ID Date Data Source [id number] 04/11/2020 06:57:00 AM EST [facility] ([facility]) Name Value Range Interpretation Code Description Data Tisha rce(s) Supporting Document(s) Sodium [Moles/volume] in Serum or Plasma 137 mmol/L 136-145 [facility]) Chloride [Moles/volume] in Serum or Plasma 104 mmol/L 100-108 [facility]) Potassium [Moles/volume] in Serum or Plasma 3.9 mmol/L 3.6-5.2 [facility] ([facility]) Creatinine [Mass/volume] in Serum or Plasma 0.97 mg/dL 0.60-1.00 [facility] ([facility]) Urea nitrogen [Mass/volume] in Serum or Plasma 17 mg/dL 7-24 [facility] ([facility]) Carbon dioxide, total [Moles/volume] in Serum or Plasma 31 mmol/L 22 -31 [facility]) Anion gap in Serum or Plasma 2 mmol/L 7-16 [facility] ([facility]) Calcium [Mass/volume] in Serum or Plasma 9.1 mg/dL 8.4-10.2 [facility] ([facility]) Urea nitrogen/Creatinine [Mass Ratio] in Serum or Plasma 17.5 1 0.0-20.0 [facility]) Glucose [Mass/volume] in Serum or Plasma 57 mg/dL 70-99 [facility]) Globulin [Mass/volume] in Urine by Electrophoresis 5.0 g/dL 2.7-4.3 [facility] ([facility]) Albumin [Mass/volume] in Synovial fluid 2.7 g/dL 3.5-4.6 [facility] ([facility]) Protein [Mass/volume] in Synovial fluid 7.7 g/dL 6.4-8.2 [facility] ([facility]) Alkaline phosphatase [Enzymatic activity/volume] in Serum or Plasma 206 U/L 45-117 [facility] ) Alb/Glob ratio 0.5 [facility] ([facility]) Bilirubin direct and total panel [Mass/volume] - Serum or Pl asma 0.4 mg/dL 0.0-1.0 [facility] ([facility] ) PLEASE NOTE: Total bilirubin results may be falsely elevated in patients taking Eltrombopag. Aspartate aminotransferase [Enzymatic activity/volume] in Serum or Plasma 11 U/L 11-39 [facility]) Alanine aminotransferase [Enzymatic activity/volume] in Seru m or Plasma 18 U/L 12-78 [facility] ) Glomerular filtration rate/1.73 sq M pre dicted among non-blacks [Volume Rate/Area] in Serum or Plasma by Creatinine-based formula (MDRD) Laboratory test result [facility] ([facility]) Glomerular filtration rate/1.73 sq M pre dicted among non-blacks [Volume Rate/Area] in Serum or Plasma by Creatinine-based formula (MDRD) Laboratory test result [facility] ([facility]) -- NORMAL KIDNEY FUNCTION OR MILD DISEASE [...] Laboratory test result [facility] ([facility]) ID Date Data Source [id number] 04/11/2020 05:25:18 AM EST [facility] Name Value Range Interpretation Code Description Data Tisha rce(s) Supporting Document(s) POC NOVA GLU 339 mg/dL (70-99) H [facility] PERFORMED BY [facility] ID Date Data Source [id number] 04/11/2020 05:14:02 AM EST [facility] NT INFORMATIONPatient MRN Name Date of Age Gend*PT [id number] Tatianna Soto 1965 54 years F IPPT Location Admission Date/Time Visit ID Attending [id number] 04/10/202316 --- Brittani Birmingham MD ([id number]) EPI ID CSN Admitting Provider [id number] Brittani Birmingham MD([id number])History per PA note get CTA to define circulation better Name Value Range Interpretation Code Description Data Tisha rce(s) Supporting Document(s) ID Date Data Source [id number] 04/11/2020 05:12:37 AM EST [facility] NT INFORMATIONPatient MRN Name Date of Age Gend*PT [id number] Tatianna Soto 1965 54 years F IPPT Location Admission Date/Time Visit ID Attending [id number] 04/10/202316 --- Brittani Birmingham MD ([id number]) EPI ID CSN Admitting Provider [id number] Brittani Birmingham MD([id number]) Attestation signed by Brittani Birmingham MD at 04/11/2020 5:12 AMI saw and evaluated the patient and reviewed pas note. I agree with thehistory, physical and medical decision making with the following additions,exceptions, and/or observations:Signature: TIMA Lawrenceate: April 11, 2020Time: 5:12 AM---- VASC ULAR SURGERYADMISSION HISTORY AND PHYSICALMelinda [facility] HospitalN:[id number]: 1965Informant: The patient who is reliable as well as old medical recordsPrimary Care Provider: TOM URANO DOAttending: LEVI LawrenceubjectiveHPI:54 years White or female, well known patient to the vascularsurgery service with a past medical history significant for PVD and ischemia,CAD (s/p quintuple bypass graft 01/16/2016), HTN, DM, COPD, hyperlipidemia, PAD,HERMAN and heavy smoker) has been transferred from [facility] ED with aright groin infection. Patient claims [...] femoral endarterectomy, Iliac to profunda femoral bypass [id number] ringed PTFE and Jump graft from the [...] and home nursing care. [facility] for poorly healing ulcers and [...] her. On day 3 of hospital admission lillianad become quite frustrated and signed out of the hospital AMA having PICC lineremoved as well as the wound VAC. She was started on high-dose oral Cipro andFlagyl for 2 weeks and was referred to the wound clinic locally. She is nowfollowing with Dr. Chavez once weekly and has nursing into her home everyWednesday, Wednesday, and Wednesday.She was last seen by SUPERVISOR TUBING (aKren Bar) in the cardiology office on 03/29/20 [...] VEIN HARVEST; Surgeon: Saba Smith MD; Location: [facility]; Service: Cardiac/Open Heart; Laterality: N/A; FOOT SURGERY [...] femoral endarterectomy, Iliac to profunda femoral bypass [id number] ringed PTFE and Jump graft from the [...] Take 80 mg by mouth daily 04/09/2020 [id number] buPROPion (WELLBUTRIN XL) 150 MG 24 hr tablet Take 150 mg by mouth daily04/10/2020 at 0900 clopidogrel (PLAVIX) 75 MG tablet Take 75 mg by mouth daily 04/10/2020 [id number] cyclobenzaprine (FLEXERIL) 5 MG tablet Take 5 [...] Take 10 mg by mouth daily 04/10/2020 [id number] metoclopramide (REGLAN) 10 MG tablet Take 10 [...] NEEDED FOR PAIN MAXIMUM DAILY DOSE 6 [id number]/10/2020 at 1100 pentoxifylline (TRENTAL) 400 MG CR [...] under the skin once a week on Dubnqg65/20/20 at 0800 nystatin (MYCOSTATIN) powder Apply 1 [...] 11/08/2019 INR 0.98 02/07/2020 HGBA1C 8.3 (H) 02/18/2020Assessment and PlanMelindharris Charles is a 54 years female with [...] stat labs ordered here (I did review [facility] labs 04/10 at 1553 Cr 1.10; WBC16.3)- [...] CAD s/p quintuple CABG 12/2015 - in [place]; recent visit with NPrecommendations: continue ASA, Plavix, ACEI and statin therapyECHO 07/06 EF 45-50%5. HLD- continue statin6. HTN- continue lisinopril7. COPD- continue inhaler- LET8. Pain management: continue flexeril, [facility]ricaC[facility] [facility] [address]: heparin for DVT prophylaxis.Code [facility] Proxy: -ADOD: unknownPatient condition and plan of care discussed with Brittani Birmingham MD and delonte. Further adjustments to the plan will come from him.Signature: GLENIS Magana-CDepartment of Vascular SurgeryDate: April 11, 2020Time: 12:09 AM Name Value Range Interpretation Code Description Data Tisha rce(s) Supporting Document(s) ID Date Data Source [id number] 04/11/2020 09:44:53 AM EST Lab Sil Name Value Range Interpretation Code Description Data Tisha rce(s) Supporting Document(s) POC NOVA GLU 162 mg/dL (70-99) H [facility] PERFORMED BY [facility]IN[facility] STAFF ID Date Data Source [id number] 04/14/2020 08:18:37 AM EST Lab Sil SPECIMEN DESCRIPTION SURGICAL WOU NDSPECIAL REQUESTS NONEGRAM STAIN MANY (>25/LPF) WHITE BLOOD CELLS MODERATE (5 TO 10/OIF) GRAM POSITIVE COCCI RARE (<1/OIF) GRAM NEGATIVE RODSCULTURE RESULTS MANY BETA HEMOLYTIC STREPTOCOCCI GROUP A ISOLATED MANY STAPHYLOCOCCUS AUREUSPRELIMINARY CULTURE RESULT CALLED TO CAROLYN ON [facility] D4 AT 1147 ON04/12/20 76773.NOTE: BIOCHEMICAL IDENTIFICATION SYSTEMS WERE SET UP ON [...] rce(s) Supporting Document(s) ID Date Data Source [id number] 04/11/2020 11:06:10 AM EST [facility] Name Value Range Interpretation Code Description Data Tisha rce(s) Supporting Document(s) SPECIMEN DESCRIPTION [facility] METH RES STAPH AUR (NEG) A [facility] COMMENT [facility] D4 AND EMAILED TO [facility] IC AT 1 [phone] ET [id number] BA 19371. ID Date Data Source [id number] 04/11/2020 02:06:41 AM EST [facility] Name Value Range Interpretation Code Description Data Tisha rce(s) Supporting Document(s) HEMOGLOBIN A1C @ 7.6 % (4.0-6.0) H [facility] Performed using Siemens Dinuba immunoassa y.Care must be taken when interpreting [id number] in patients with a hemoglobin variantor decreased erythrocyte lifespan. Values 5.7 - 6.4% suggest prediabetes.Values >=6.5% are diagnostic for diabetes.REFERENCE: DIABETES CARE 2018: 41(S13-S27).PERFORMED AT [address] [place] [phone] EST AVERAGE GLUCOSE 171 mg/dL [facility] ID Date Data Source [id number] 04/17/2020 10:41:04 AM EST [facility] SPECIMEN DESCRIPTION PERIPHERAL 2SPECIAL REQUESTS NONECULTURE RESULTS NO GROWTH 6 DAYSREPORT STATUS FINAL 04/17/2020 Name Value Range Interpretation Code Description Data Tisha rce(s) Supporting Document(s) ID Date Data Source [id number] 04/17/2020 10:41:04 AM EST [facility] SPECIMEN DESCRIPTION PERIPHERAL 1SPECIAL REQUESTS NONECULTURE RESULTS NO GROWTH 6 DAYSREPORT STATUS FINAL 04/17/2020 Name Value Range Interpretation Code Description Data Tisha rce(s) Supporting Document(s) ID Date Data Source [id number] 04/11/2020 01:57:49 AM EST [facility] Name Value Range Interpretation Code Description Data Tisha rce(s) Supporting Document(s) SODIUM 137 mmol/L (136-145) [facility] POTASSIUM 3.9 mmol/L (3.6-5.2) [facility] CHLORIDE 104 mmol/L (100-108) [facility] CO2 31 mmol/L (22-31) [facility] ANION GAP 2 mmol/L (7-16) L [facility] UREA NITROGEN 17 mg/dL (7-24) [facility] CREATININE 0.97 mg/dL (0.60-1.00) [facility] BUN/CREAT RATIO 17.5 RATIO (10.0-20.0) [facility] GLUCOSE 57 mg/dL (70-99) L [facility] CALCIUM 9.1 mg/dL (8.4-10.2) [facility] TOTAL PROTEIN 7.7 g/dL (6.4-8.2) [facility] ALBUMIN 2.7 g/dL (3.5-4.6) L [facility] GLOBULIN 5.0 g/dL (2.7-4.3) H [facility] ALB/GLOB RATIO 0.5 RATIO [facility] ALKALINE PHOSPHATASE 206 U/L (45-117) H [facility] BILIRUBIN,TOTAL 0.4 mg/dL (0.0-1.0) [facility] PLEASE NOTE:Total bilirubin results may be falselyelevated in patients taking Eltrombopag. AST (SGOT) 11 U/L (11-39) [facility] ALT (SGPT) 18 U/L (12-78) [facility] GFR >60 ml/min/1.73m2 (>59) [facility] GFR ( AMER) >60 ml/min/1.73m2 (>59) [facility] GFR INTERPRETATION [facility] --NORMAL KIDNEY FUNCTION OR MILD DISEASE - GFR >OR= 60CHRONIC KIDNEY DISEASE - GFR 15 - 59RENAL FAILURE - GFR <15 Est. GFR calculation based on the MDRDstudy equation, which assumes a steadystate for creatinine. Est. GFR should notbe used for medication dosing. ID Date Data Source [id number] 04/11/2020 01:27:25 AM EST [facility] Name Value Range Interpretation Code Description Data Tisha rce(s) Supporting Document(s) WBC 16.1 10*3/uL (4.1-11.0) H [facility] RBC 5.04 10*6/uL (4.00-5.40) [facility] HGB 13.7 g/dL (12.0-16.0) [facility] HCT 41.3 % (36.0-47.0) [facility] MCV 81.9 fL (80.0-95.0) [facility] MCH 27.2 pg (27.0-32.0) [facility] MCHC 33.2 g/dL (32.0-36.0) [facility] RDW 14.7 % (10.5-14.5) H [facility] PLT 254 10*3/uL (150-450) [facility] MPV 8.8 fL (7.1-10.7) [facility] [place] ID Date Data Source [id number] 04/11/2020 01:47:11 AM EST [facility] [place] Name Value Range Interpretation Code Description Data Tisha rce(s) Supporting Document(s) POC NOVA GLU 55 mg/dL (70-99) L [facility] [place] PERFORMED BY [facility] STA[facility] ID Date Data Source [id number] 04/10/2020 06:43:00 PM EST [facility] Name Value Range Interpretation Code Description Data Tisha rce(s) Supporting Document(s) SARS coronavirus 2 RNA [Presence] in Res piratory specimen by CHLOE with probe detection [facility] This lab was ordered by [facility] a nd reported by [facility]. ID Date Data Source [id number] 03/21/2020 01:59:00 PM EST [facility] ([facility]) Name Value Range Interpretation Code Description Data Tisha rce(s) Supporting Document(s) Arterial Ultrasound Lower Extremity Right Laboratory test result [facility] ([facility]) ID Date Data Source [id number] 03/05/2020 06:33:56 AM EST [facility] NT INFORMATIONPatient MRN Name Date of Age Gend*PT [id number] Tatianna Soto 1965 54 years F OBSPT Location Admission Date/Time Visit ID Attending [id number] 02/18/20 [facility] --- --- EPI ID CSN Admitting Provider [id number] Brittani Birmingham MD([id number]) Attestation signed by Brittani Birmingham MD at 03/05/2020 6:33 AMI saw and evaluated the patient and reviewed pas note. I agree with thehistory, physical and medical decision making with the following additions,exceptions, and/or observations:Signature: TIMA Lawrenceate: March 05, 2020Time: 6:33 AM --Vascular Surgery PA Admission H&P Note Tatianna Soto Admission Date: 02/18/2020MRN: [id number]: 1965 54 yearsPrimary Care Provider: [facility] Physician: Brittani Birmingham MD Informant:Pt and chart- both reliableCC:Couldn't get abx HPI:54 yr old female who was just admitted a week ago for PVD and heel infection. Dr Sanford took her to the OR for left heel debridement and leftfem-pop. Wound vac was applied to her heel. ID initiated meropenem. She wasdischarged to home with infusion services to dose abc TID. She was onlyreceiving abx once a day. Her home nurse sent her to [facility], who contact Tiago (oncall) for further instruction. [...] VEIN HARVEST; Surgeon: Saba Smith MD; Location: [facility]; Service: Cardiac/Open Heart; Laterality: N/A; FOOT SURGERY [...] femoral endarterectomy, Iliac to profunda femoral bypass lkugy9gu ringed PTFE and Jump graft from the [...] under the skin once a week on ergies:Basaglar kwikpen [insulin glargine]; Grapefruit concentrate; and [...] tomorrow. Hopefully can dischargetomorrow.Will discuss with Dr Bushseosiel with Brittani Birmingham MD. Signature: LIBBY AstudilloCDate: February 18, 2020Time: 6:14 PM Name Value Range Interpretation Code Description Data Tisha rce(s) Supporting Document(s) ID Date Data Source [id number] 02/28/2020 08:56:49 PM EST [facility] NT INFORMATIONPatient MRN Name Date of Age Gend*PT [id number] Tatianna Soto 1965 54 years F IPPT Location Admission Date/Time Visit ID Attending [id number] 02/05/20 0417 --- --- EPI ID CSN Admitting Provider [id number] Dain Sanford MD([id number]) [place] [address] OPERATIVE REPORT OPNAME: TATIANNA SOTO#: [id number] #: [id number] ADMISSION DATE: 02/05/2020DOB: 1965 SEX: F PT TYPE: I VascACCT #: [id number] CARE PHYSICIAN: TOM CORONADO-SURBEDATE OF OPERATION: 02/08/2020AMENDED TO CORRECT DATE OF SERVICE. ORIGINAL DICTATION PERFORMED ON02/09/2020 AT 12:00; DIC #[id number] DIAGNOSIS:Protruding sternal wire.POSTOPERATIVE DIAGNOSIS:Protruding sternal wire.ANESTHESIA:General anesthesia.ATTENDING:Dr. [...] recovery room in stablecondition.LASHON Spann/CARMINE Job #: [id number] DOC #: [id number] Name Value Range Interpretation Code Description Data Tisha rce(s) Supporting Document(s) ID Date Data Source [id number] 02/26/2020 10:05:32 PM EST [facility]PAT[facility] NT INFORMATIONPatient MRN Name Date of Age Gend*PT [id number] Tatianna Soto 1965 54 years F IPPT Location Admission Date/Time Visit ID Attending [id number] 02/05/20 0417 --- --- EPI ID CSN Admitting Provider [id number] Dain Sanford MD([id number]) [place] [address] OPERATIVE REPORT OPNAME: TATIANNA SOTO#: [id number] #: [id number] ADMISSION DATE: 02/05/2020DOB: 1965 SEX: F PT TYPE: I VascACCT #: [id number] CARE PHYSICIAN: TOM CORONADO-SURBEDATE OF OPERATION: 02/09/2020PREOPERATIVE DIAGNOSIS:Protruding sternal wire.POSTOPERATIVE DIAGNOSIS:Protruding [...] recovery room in stablecondition.LASHON Spann/CARMINE Job #: [id number] DOC #: [id number] Name Value Range Interpretation Code Description Data Tisha rce(s) Supporting Document(s) ID Date Data Source [id number] 02/23/2020 10:31:53 AM EST [facility] CenterPAT[facility] NT INFORMATIONPatient MRN Name Date of Age Gend*PT [id number] Tatianna Soto 1965 54 years F OBSPT Location Admission Date/Time Visit ID Attending [id number] 02/18/20 1640 --- --- EPI ID CSN Admitting Provider [id number] Brittani Birmingham MD([id number])Surgical Discharge SummaryTatianna SotoN: [id number] date: 02/18/2020Admitting Physician: TIMA Lawrenceischarge date and time:Discharge Orders Placed(From admission, onward) Start Ordered 02/20/202024 Discharge patient OnceComments: Pt leaving AMAExpected Discharge Date: 02/20/20Discharge Disposition: Home or Self Care 02/20/202034Discharge Physician: Norman Lemus Diagnosis: Osteomyelitis of footSecondary Diagnoses:Active Hospital Problems [...] Get Your MedicationsThese medications were sent to [facility] [place] [address] ciprofloxacin 250 MG tablet metroNIDAZOLE 250 MG [...] home on 02/16/2020 with Home Care and [facility] infusion services, [facility] agreed to assist with antibiotics administration. Wound vac wasdelivered to her home for the left heel and would be changed three times weeklyby [facility] Care.Hospital Course & Complications: She was readmitted on 02/18/2020 because it wasdiscovered that she was only receiving IV antibiotics once a day rather than 3times a day as pres cribed. Home care nurse [facility],she was then transferred to [facility] for admission to sort out the infusion issues.While hospitalized, she was continued on IV meropenem as originally prescribedby infectious disease via right arm PICC. Her left heel wound VAC was alsochanged on 02/19/2020.Patient told CCM that she was struggling at home with ADLs, ambulation, mealpreparation. She was incontinent and her children unable to help her becausethey work. Patient requested STR placement. [facility] accepted thepatient, but her insurance does not par and all other local facil ities wouldneed to decline the patient before she could be accepted to [facility]. Asof 02/20/2020, [facility] declined, [facility] was pending.During the evening of 02/20/2020 patient [...] and [facility] be [facility] as soon as possible.She was also receptive to continuing the wound VAC to her left heel Home carese rvices would continue to see her. She brought her home wound vac pump homewith her and she has the unopened dressing supplies [facility] in her home.Because I could not give her resumption of home care services, I could notdischarge her with a wound VAC in place. The time of this writing, ARY Planningwill attempt to resume patient's home care services [...] drainage.LLE incisions open to air, no drainage. Franklin intact.Left heel wound vac dressing removed, beefy red wound base, no skin edgenecrosis, no malodor. Bone exposed in wound bed. Scant serosanguinous drainage.Pulses: palpable DP pusle BLESkin: Skin color, texture, and turgor otherwise normal.Items needing special attention:[facility] will attempt to continue Home Care services for patients left heel woundvac. She brought the home pump with her upon discharge. She has an open woundVAC supplies at home. She was sent home with dressing supplies for rklfvgmts-ns-lae and she agreed that she knows how [...] Condition:fairDisposition: Home or Self Care left AMASignature: Cliff Alex PADate: February 20, 2020Time: 8:36 PM Name Value Range Interpretation Code Description Data Tisha rce(s) Supporting Document(s) ID Date Data Source [id number] 02/20/2020 10:07:00 PM EST [facility] ([facility]) Name Value Range Interpretation Code Description Data Tisha rce(s) Supporting Document(s) Laboratory test finding (navigational concept) 192 mg/dL 70-99 [facility] ([facility]) PERFORMED BY [facility] CL[facility] STAFF ID Date Data Source [id number] 02/20/2020 05:08:12 PM EST [facility] Name Value Range Interpretation Code Description Data Tisha rce(s) Supporting Document(s) POC NOVA GLU 192 mg/dL (70-99) H [facility] [place] [facility]FOR[facility] STA[facility] ID Date Data Source [id number] 02/20/2020 11:31:29 AM EST [facility] Name Value Range Interpretation Code Description Data Tisha rce(s) Supporting Document(s) POC NOVA GLU 206 mg/dL (70-99) H [facility] [place] [facility] STA[facility] ID Date Data Source [id number] 02/20/2020 10:38:04 AM EST [facility] Name Value Range Interpretation Code Description Data Tisha rce(s) Supporting Document(s) POC NOVA GLU 254 mg/dL (70-99) H [facility] [place] [facility] STA[facility] ID Date Data Source [id number] 02/20/2020 09:00:00 AM EST [facility] ([facility]) Name Value Range Interpretation Code Description Data Tisha rce(s) Supporting Document(s) Erythrocytes [#/volume] in Blood by Automated count 3.69 10*6/uL 4.00 -5.40 [facility] ([facility]) Leukocytes [#/volume] in Blood by Automated count 8.6 10*3/uL 4.1-11. 0 [facility] ([facility]) Hematocrit [Volume Fraction] of Blood by Automated count 30.2 % 3 6.0-47.0 [facility] ([facility]) PERFORMED AT [address] [place] [address] [place] [address] Hemoglobin [Mass/volume] in Blood 10.2 g/dL 12.0-16.0 [facility] ([facility]) Erythrocyte mean corpuscular volume [Entitic volume] by Auto mated count 81.9 fL 80.0-95.0 [facility] ([facility] ) Erythrocyte distribution width [Ratio] by Automated count 16.4 % 10.5-14.5 [facility] ([facility]) Erythrocyte mean corpuscular hemoglobin [Entitic mass] by Automated count 27.8 pg 27.0-32.0 [facility] ([facility]) Erythrocyte mean corpuscular hemoglobin concentration [Mass/volume] by Automated count 33.9 g/dL 32.0-36.0 [facility] ([facility]) Platelet mean volume [Entitic volume] in Blood by Javy 7.7 fL 7.1-10.7 [facility] ([facility]) Platelets [#/volume] in Blood by Automated count 430 10*3/uL 150-450 [facility] ([facility]) ID Date Data Source [id number] 02/20/2020 08:26:32 AM EST [facility] Name Value Range Interpretation Code Description Data Tisha rce(s) Supporting Document(s) POC NOVA GLU 170 mg/dL (70-99) H [facility] [place] [facility] ID Date Data Source [id number] 02/20/2020 07:24:00 AM EST [facility] ([facility]) Name Value Range Interpretation Code Description Data Tisha rce(s) Supporting Document(s) Laboratory test finding (navigational concept) Laboratory test result [facility] ([facility]) THIS ASSAY AMPLIFIES AND DETECTS THE TAR GET RNA USING REAL-TIME PCR. NEGATIVE 2019_NCOV RT-PCR RESULTS DO NOT PRECLUDE 2019_NCOV INFECTION AND SHOULD NOT BE USED THE SOLE BASIS FOR PATIENT MANAGEMENT DECISIONS. Specimen Description Laboratory test result [facility] ([facility]) Laboratory comment [Text] in Report Narrative Laboratory test result [facility] ([facility]) THE [place]. FDA HAS MADE THIS TEST AVAILABL E UNDER AN EMERGENCY USE AUTHORIZATION (EUA) FOR THE DETECTION AND/OR DIAGNOSIS OF THE VIRUS THAT CAUSES COVID-19. EMAILED TO [facility] AT 0625 on [phone] Employed [employer] Laboratory test result [facility] ([facility]) Symptomatic Laboratory test result MEDEN T ([facility]) First Test Laboratory test result [facility] ([facility]) Illness or injury onset date and time Laboratory test result [facility] ([facility]) Hospitalized Laboratory test result MEDE NT ([facility]) Icu Laboratory test result [facility] ([facility]) Laboratory test result [facility] ([facility]) [facility] Care Set Laboratory test result [facility] ([facility]) ID Date Data Source [id number] 02/20/2020 04:00:51 AM EST [facility] Name Value Range Interpretation Code Description Data Tisha rce(s) Supporting Document(s) WBC 8.6 10*3/uL (4.1-11.0) [facility] [place] RBC 3.69 10*6/uL (4.00-5.40) L [facility] HGB 10.2 g/dL (12.0-16.0) L [facility] HCT 30.2 % (36.0-47.0) L [facility] [place] PERFORMED AT [address] [place] [address] MCV 81.9 fL (80.0-95.0) [facility] MCH 27.8 pg (27.0-32.0) [facility] MCHC 33.9 g/dL (32.0-36.0) [facility] [place] RDW 16.4 % (10.5-14.5) H [facility] [place] [place] PLT 430 10*3/uL (150-450) [facility] [place] MPV 7.7 fL (7.1-10.7) [facility] kylie CEDILLO ID Date Data Source [id number] 02/20/2020 12:00:00 AM EST [facility]ie [facility] Name Value Range Interpretation Code Description Data Tisha rce(s) Supporting Document(s) SARS coronavirus 2 RNA [Presence] in Res piratory specimen by CHLOE with probe detection [facility] [place] This lab was reported by [facility] ID Date Data Source [id number] 02/20/2020 06:30:58 AM EST [facility]ylie [facility] Name Value Range Interpretation Code Description Data Tisha rce(s) Supporting Document(s) SPECIMEN DESCRIPTION [facility] [place] COVID19 RESULT (NDET) [facility] THIS ASSAY AMPLIFIES AND DETECTSTHE TARG ET RNA USING REAL-TIME PCR.NEGATIVE 2019_NCOV RT-PCR RESULTS DONOT PRECLUDE 2019_NCOV INFECTION ANDSHOULD NOT BE USED THE SOLE BASISFOR PATIENT MANAGEMENT DECISIONS. COMMENT [facility] kylie C[facility] UNDER AN EMERGENCY USE AUTHORIZATION(EUA ) FOR THE DETECTION AND/OR DIAGNOSISOF THE VIRUS THAT CAUSES COVID-19.EMAILED TO [facility] AT 9662 ON [phone] FIRST TEST [facility] [place] [facility] [place] SYMPTOMATIC [facility] [place] DATE OF SYMPT ONSET [facility] [place] HOSPITALIZED [facility] ICU [facility] [place] CONGREGATE CARE SET [facility] [place] [place] ID Date Data Source [id number] 02/19/2020 06:08:42 PM EST [facility]ie [facility] Name Value Range Interpretation Code Description Data Tisha rce(s) Supporting Document(s) POC NOVA GLU 163 mg/dL (70-99) H [facility] [place] PERFORMED BY [facility] CLINICAL STAFF ID Date Data Source [id number] 02/19/2020 01:40:30 PM EST [facility] CenterPATIE NT INFORMATIONPatient MRN Name Date of Age Gend*PT [id number] Tatianna Soto 1965 54 years F IPPT Location Admission Date/Time Visit ID Attending ProviderD-[id number] 02/05/20 0417 --- --- EPI ID CSN Admitting Provider [id number] Dain Sanford MD([id number])Surgical Discharge SummaryTatianna SotoMRN: [id number] date: 02/05/2020Admitting Physician: TIMA Borregoischarge date and [...] 01/24/2020 Added automatically from request for surgery [id number] Peripheral vascular disease 11/20/2019 Coronary artery disease involving k[place]ue coronary artery of kotz[place]ue heartwithout angina pectoris 05/11/2019 Heavy cigarette smoker [...] Take 325 mg by mouth daily with zjpowuinr15/31lisinopril 5 MG tabletCommonly known as: PRINIVIL,ZESTRIL Take [...] Get Your MedicationsThese medications were sent to [facility] - [facility], [place] - [address] [place] [address] Chlorhexidine Gluconate (Dressing) Misc heparin 100 UNIT/ML Soln meropenem 1 g injection normal saline flush 0.9 % Soln injectionThese medications were sent to [facility] - [place] [address] [address] ASPIRIN ADULT 325 MG tablet bisacodyl 10 [...] ARTERIAL, FEMORAL TO POPLITEAL, LEFT (Left)Significant Diagnostic Studies:[address] [address]Fwyxrya Name: Tatianna SotoDONALD: 1965Sex: FOrdering Provider: HAYLEE FLANNERYuthorizing Prov: HAYLEE Castro Provider:Procedure Performed: MRI LOW EXT NO JNT WO CONTRAST LEFTExam Date: 02/08/2020 15:20MRN: [id number] Number: [id number] Class: PROCEDURE INFORMATION:Exam: MR Left Lower Extremity [...] by: ANDRE ROLDAN MD on 02/08/2020 16:32:59St. [address] [address]Uiuxnyx Name: Tatianna MccarthyB: 1965Sex: FOrdering Provider: HAYLEE FLANNERYuthorieldon Prov: HAYLEE Lozadaferjudy Provider:Procedure Performed: MRI LOW EXT NO JNT WO CONTRAST RIGHTExam Date: 02/06/2020 20:23MRN: [id number] Number: [id number] Class: PROCEDURE INFORMATION:Exam: MR Right Lower Extremity [...] the 5th metatarsal stump on STIR and T0korpivtn images. There are residual phalanges of the [...] ALEXANDRO FARR MD on 02/06/2020 22:43:[address] [address]Ar[place] Name: TATIANNA SOTODOB: 1965Sex: FOrdering Provider: EMIL Caruso Prov: EMIL Felix Provider:Procedure Performed: CT ANGIOGRAM ABDOMINAL AORTA AND BILATERAL RUNOFFExam Date: 02/05/2020 09:25MRN: [id number] Number: [id number] Class: InpatientAccount #: [id number] Reason for Exam: Arterial embolism, lower extremity [...] her wires removed.Heart: Regular rate and rhythm [id number]: CTA bilaterally throughout without wheezes rales or [...] ID office follow-up: In 3 weeks with SUPERVISOR TUBING Other physicians involved: Dr. Sanford, (podiatry in [place]) Notes for ID provider use:54-year-old female with history of COPD, GERD, HTN, CAD with bypass, HLD, typeII DM with peripheral neuropathy, PAD with claudication, bilateral foot woundsfollows at wound care in [place]. Underwent right fifth metatarsal resectionin September with diagnostic imaging manager, Dr. Mccarty in [place]. Then in December a left heelbiopsy that showed osteomyelitis. Wound culture at that time also grewpseudomonas, unclear whether she received any antibiotic treatment for this. Transferred from [facility] with acute right foot and calf [...] outpatient left heel bone biopsy with acute YNRVBCP21/21 right fifth toe culture with Peptostreptococcus species and gram-positivecocci on Gram stain.02/05 right lower extremity MRI osteomyelitis fourth and fifth toes andmetatarsal heads Carolyn Salas NP Discharged Condition:stableDisposition: Home or Self CareSignature: Haylee Barba, PADate: February 16, 2020Time: 2:44 PM Name Value Range Interpretation Code Description Data Tisha rce(s) Supporting Document(s) ID Date Data Source [id number] 02/19/2020 01:10:00 PM EST [facility] ([facility]) Name Value Range Interpretation Code Description Data Tisha rce(s) Supporting Document(s) Sodium [Moles/volume] in Serum or Plasma 144 mmol/L 136-145 [facility] Potassium [Moles/volume] in Serum or Plasma 4.1 mmol/L 3.6-5.2 [facility] ([facility]) Chloride [Moles/volume] in Serum or Plasma 105 mmol/L 100-108 [facility] ([facility]) Urea nitrogen [Mass/volume] in Serum or Plasma 11 mg/dL 7-24 [facility] ([facility]) Carbon dioxide, total [Moles/volume] in Serum or Plasma 32 mmol/L 22 -31 [facility] ([facility]) Anion gap in Serum or Plasma 7 mmol/L 7-16 [facility] ([facility]) Glucose [Mass/volume] in Serum or Plasma 193 mg/dL 70-99 [facility] ([facility]) Creatinine [Mass/volume] in Serum or Plasma 0.60 mg/dL 0.60-1.00 [facility] ([facility]) Urea nitrogen/Creatinine [Mass Ratio] in Serum or Plasma 18.3 1 0.0-20.0 [facility] ([facility]) Glomerular filtration rate/1.73 sq M pre dicted among non-blacks [Volume Rate/Area] in Serum or Plasma by Creatinine-based formula (MDRD) Laboratory test result [facility] ([facility]) Glomerular filtration rate/1.73 sq M pre dicted among blacks [Volume Rate/Area] in Serum or Plasma by Creatinine-based formula (MDRD) Laboratory test result [facility] ([facility]) Calcium [Mass/volume] in Serum or Plasma 8.9 mg/dL 8.4-10.2 [facility] ([facility]) Glomerular filtration rate/1.73 sq M pre dicted among non-blacks [Volume Rate/Area] in Serum or Plasma by Creatinine-based formula (MDRD) Laboratory test result [facility] ([facility]) -- NORMAL KIDNEY FUNCTION OR MILD DISEASE - GFR >OR= 60 CHRONIC KIDNEY DISEASE - GFR 15 - 59 RENAL FAILURE - GFR <15 Est. GFR calculation based on the MDRD study equation, which assumes a steady state for creatinine. Est. GFR should not be used for medication dosing. ID Date Data Source [id number] 02/19/2020 12:08:31 PM EST [facility] kylie CEDILL[facility] Name Value Range Interpretation Code Description Data Tisha rce(s) Supporting Document(s) POC NOVA GLU 317 mg/dL (70-99) H [facility] PERFOR[facility] BY [facility] ID Date Data Source [id number] 02/19/2020 07:42:28 AM EST [facility] Name Value Range Interpretation Code Description Data Tisha rce(s) Supporting Document(s) POC NOVA GLU 231 mg/dL (70-99) H [facility] [place] [facility] ID Date Data Source [id number] 02/19/2020 08:10:37 AM EST [facility] Name Value Range Interpretation Code Description Data Tisha rce(s) Supporting Document(s) SODIUM 144 mmol/L (136-145) [facility] POTASSIUM 4.1 mmol/L (3.6-5.2) [facility] CHLORIDE 105 mmol/L (100-108) [facility] CO2 32 mmol/L (22-31) H [facility] ANION GAP 7 mmol/L (7-16) [facility] UREA NITROGEN 11 mg/dL (7-24) [facility] CREATININE 0.60 mg/dL (0.60-1.00) [facility] BUN/CREAT RATIO 18.3 RATIO (10.0-20.0) [facility] GLUCOSE 193 mg/dL (70-99) H [facility] CALCIUM 8.9 mg/dL (8.4-10.2) [facility] GFR >60 ml/min/1.73m2 (>59) [facility] GFR ( AMER) >60 ml/min/1.73m2 (>59) [facility] GFR INTERPRETATION [facility] --NORMAL KIDNEY FUNCTION OR MILD DISEASE - GFR >OR= 60CHRONIC KIDNEY DISEASE - GFR 15 - 59RENAL FAILURE - GFR <15 Est. GFR calculation based on the MDRDstudy equation, which assumes a steadystate for creatinine. Est. GFR should notbe used for medication dosing. ID Date Data Source [id number] 02/19/2020 01:01:00 AM EST [facility] ([facility]) Name Value Range Interpretation Code Description Data Tisha rce(s) Supporting Document(s) Est. Average Glucose 192 mg/dL [facility] ([facility]) Hemoglobin A1c/Hemoglobin.total in Blood 8.3 % 4.0-6.0 [facility] ([facility]) Performed using Siemens Dinuba immunoassa y. Care must be taken when interpreting HbA1c results in patients with a hemoglobin variant or decreased erythrocyte lifespan. Values 5.7 - 6.4% suggest prediabetes. Values >=6.5% are diagnostic for diabetes. REFERENCE: DIABETES CARE 2018: 41(S13-S27). PERFORMED AT [address] [place] [id number] ID Date Data Source [id number] 02/18/2020 07:31:11 PM EST [facility] Name Value Range Interpretation Code Description Data Tisha rce(s) Supporting Document(s) POC NOVA GLU 262 mg/dL (70-99) H [facility] PERFOR[facility] BY [facility] ID Date Data Source [id number] 02/18/2020 08:02:30 PM EST [facility] Name Value Range Interpretation Code Description Data Tisha rce(s) Supporting Document(s) HEMOGLOBIN A1C @ 8.3 % (4.0-6.0) H [facility] Performed using Siemens Dinuba immunoassa y.Care must be taken when interpreting HbG8rbxvlelx in patients with a hemoglobin variantor decreased erythrocyte lifespan. Values 5.7 - 6.4% suggest prediabetes.Values >=6.5% are diagnostic for diabetes.REFERENCE: DIABETES CARE 2018: 41(S13-S27).PERFORMED AT [address] [place] [id number] EST [place] GLUCOSE 192 mg/dL [facility] ID Date Data Source [id number] 02/18/2020 06:56:55 PM EST [facility] Name Value Range Interpretation Code Description Data Tisha rce(s) Supporting Document(s) WBC 10.1 10*3/uL (4.1-11.0) [facility] RBC 3.74 10*6/uL (4.00-5.40) L [facility] HGB 10.3 g/dL (12.0-16.0) L [facility] HCT 31.4 % (36.0-47.0) L [facility] MCV 83.9 fL (80.0-95.0) [facility] MCH 27.6 pg (27.0-32.0) [facility] MCHC 32.9 g/dL (32.0-36.0) [facility] RDW 16.0 % (10.5-14.5) H [facility] PLT 469 10*3/uL (150-450) H [facility] MPV 8.1 fL (7.1-10.7) [facility] ID Date Data Source [id number] 02/18/2020 06:13:50 PM EST [facility] Name Value Range Interpretation Code Description Data Tisha rce(s) Supporting Document(s) POC NOVA GLU 127 mg/dL (70-99) H [facility] [place] [facility] ID Date Data Source [id number] 02/18/2020 06:13:45 PM EST [facility] Name Value Range Interpretation Code Description Data Tisha rce(s) Supporting Document(s) POC NOVA GLU 69 mg/dL (70-99) L [facility] [place] [facility] ID Date Data Source [id number] 02/18/2020 06:13:40 PM EST [facility] Name Value Range Interpretation Code Description Data Tisha rce(s) Supporting Document(s) POC NOVA GLU 48 mg/dL (70-99) LL [facility] [place] [facility] ID Date Data Source [id number] 02/18/2020 04:55:12 PM EST [facility] Name Value Range Interpretation Code Description Data Tisha rce(s) Supporting Document(s) POC NOVA GLU 43 mg/dL (70-99) LL [facility] [place] [facility] ID Date Data Source [id number] 02/16/2020 11:32:00 AM EDT [facility] ([facility]) Name Value Range Interpretation Code Description Data Tisha rce(s) Supporting Document(s) Laboratory test finding (navigational concept) 315 mg/dL 70-99 [facility] ([facility]) PERFOR[facility] ID Date Data Source [id number] 02/16/2020 07:32:56 AM EDT [facility] Name Value Range Interpretation Code Description Data Tisha rce(s) Supporting Document(s) POC NOVA GLU 315 mg/dL (70-99) H [facility] [place] [facility] ID Date Data Source [id number] 02/15/2020 05:13:38 PM EDT [facility] Name Value Range Interpretation Code Description Data Tisha rce(s) Supporting Document(s) POC NOVA GLU 265 mg/dL (70-99) H [facility] [place] [facility] ID Date Data Source [id number] 02/15/2020 12:25:02 PM EDT [facility] Name Value Range Interpretation Code Description Data Tisha rce(s) Supporting Document(s) POC NOVA GLU 318 mg/dL (70-99) H [facility] [place] [facility] ID Date Data Source [id number] 02/15/2020 11:03:00 AM EDT [facility] ([facility]) Name Value Range Interpretation Code Description Data Tisha rce(s) Supporting Document(s) Potassium [Moles/volume] in Serum or Plasma 4.3 mmol/L 3.6-5.2 [facility] ([facility]) Chloride [Moles/volume] in Serum or Plasma 107 mmol/L 100-108 [facility] ([facility]) Sodium [Moles/volume] in Serum or Plasma 142 mmol/L 136-145 [facility] ([facility]) Anion gap in Serum or Plasma 2 mmol/L 7-16 [facility] ([facility]) Carbon dioxide, total [Moles/volume] in Serum or Plasma 33 mmol/L 22 -31 [facility] ([facility]) Urea nitrogen [Mass/volume] in Serum or Plasma 18 mg/dL 7-24 [facility] ([facility]) Creatinine [Mass/volume] in Serum or Plasma 0.61 mg/dL 0.60-1.00 [facility] ([facility]) Urea nitrogen/Creatinine [Mass Ratio] in Serum or Plasma 29.5 1 0.0-20.0 [facility] ([facility]) Glucose [Mass/volume] in Serum or Plasma 224 mg/dL 70-99 [facility] ([facility]) Calcium [Mass/volume] in Serum or Plasma 8.6 mg/dL 8.4-10.2 [facility] ([facility]) Glomerular filtration rate/1.73 sq M pre dicted among blacks [Volume Rate/Area] in Serum or Plasma by Creatinine-based formula (MDRD) Laboratory test result [facility] ([facility]) Glomerular filtration rate/1.73 sq M pre dicted among non-blacks [Volume Rate/Area] in Serum or Plasma by Creatinine-based formula (MDRD) Laboratory test result [facility] ([facility]) Glomerular filtration rate/1.73 sq M pre dicted among non-blacks [Volume Rate/Area] in Serum or Plasma by Creatinine-based formula (MDRD) Laboratory test result [facility] ([facility]) -- NORMAL KIDNEY FUNCTION OR MILD DISEASE - GFR >OR= 60 CHRONIC KIDNEY DISEASE - GFR 15 - 59 RENAL FAILURE - GFR <15 Est. GFR calculation based on the MDRD study equation, which assumes a steady state for creatinine. Est. GFR should not be used for medication dosing. ID Date Data Source [id number] 02/15/2020 09:46:00 AM EDT [facility] ([facility]) Name Value Range Interpretation Code Description Data Tisha rce(s) Supporting Document(s) Hemoglobin [Mass/volume] in Blood 9.2 g/dL 12.0-16.0 [facility] ([facility]) Leukocytes [#/volume] in Blood by Automated count 10.3 10*3/uL 4.1-11 .0 [facility] ([facility]) Erythrocytes [#/volume] in Blood by Automated count 3.33 10*6/uL 4.00 -5.40 [facility] ([facility]) Hematocrit [Volume Fraction] of Blood by Automated count 27.8 % 3 6.0-47.0 [facility] ([facility]) Erythrocyte mean corpuscular hemoglobin [Entitic mass] by Automated count 27.6 pg 27.0-32.0 [facility] ([facility]) Erythrocyte mean corpuscular volume [Entitic volume] by Auto mated count 83.5 fL 80.0-95.0 [facility] ([facility] ) Erythrocyte distribution width [Ratio] by Automated count 16.1 % 10.5-14.5 [facility] ([facility]) Platelets [#/volume] in Blood by Automated count 295 10*3/uL 150-450 [facility] ([facility]) Erythrocyte mean corpuscular hemoglobin concentration [Mass/volume] by Automated count 33.1 g/dL 32.0-36.0 [facility] ([facility]) Platelet mean volume [Entitic volume] in Blood by [place] 8.4 fL 7.1-10.7 [facility] ([facility]) ID Date Data Source [id number] 02/15/2020 08:48:59 AM EDT [facility] Name Value Range Interpretation Code Description Data Tisha rce(s) Supporting Document(s) POC NOVA GLU 239 mg/dL (70-99) H [facility] [place] [facility] ID Date Data Source [id number] 02/15/2020 07:03:38 AM EDT [facility] Name Value Range Interpretation Code Description Data Tisha rce(s) Supporting Document(s) SODIUM 142 mmol/L (136-145) [facility] POTASSIUM 4.3 mmol/L (3.6-5.2) [facility] CHLORIDE 107 mmol/L (100-108) [facility] CO2 33 mmol/L (22-31) H [facility] ANION GAP 2 mmol/L (7-16) L [facility] UREA NITROGEN 18 mg/dL (7-24) [facility] CREATININE 0.61 mg/dL (0.60-1.00) [facility] BUN/CREAT RATIO 29.5 RATIO (10.0-20.0) H [facility] GLUCOSE 224 mg/dL (70-99) H [facility] CALCIUM 8.6 mg/dL (8.4-10.2) [facility] GFR >60 ml/min/1.73m2 (>59) [facility] GFR ([facility] AMER) >60 ml/min/1.73m2 (>59) [facility] GFR INTERPRETATION [facility] --NORMAL KIDNEY FUNCTION OR MILD DISEASE - GFR >OR= 60CHRONIC KIDNEY DISEASE - GFR 15 - 59RENAL FAILURE - GFR <15 Est. GFR calculation based on the MDRDstudy equation, which assumes a steadystate for creatinine. Est. GFR should notbe used for medication dosing. ID Date Data Source [id number] 02/15/2020 05:47:32 AM EDT [facility] Name Value Range Interpretation Code Description Data Tisha rce(s) Supporting Document(s) WBC 10.3 10*3/uL (4.1-11.0) [facility] RBC 3.33 10*6/uL (4.00-5.40) L [facility] HGB 9.2 g/dL (12.0-16.0) L [facility] HCT 27.8 % (36.0-47.0) L [facility] MCV 83.5 fL (80.0-95.0) [facility] MCH 27.6 pg (27.0-32.0) [facility] MCHC 33.1 g/dL (32.0-36.0) [facility] RDW 16.1 % (10.5-14.5) H [facility] PLT 295 10*3/uL (150-450) [facility] MPV 8.4 fL (7.1-10.7) [facility] ID Date Data Source [id number] 02/14/2020 06:16:36 PM EDT [facility] Name Value Range Interpretation Code Description Data Tisha rce(s) Supporting Document(s) POC NOVA GLU 156 mg/dL (70-99) H [facility] [place] [facility] ID Date Data Source [id number] 02/14/2020 01:03:00 PM EDT [facility] Name Value Range Interpretation Code Description Data Tisha rce(s) Supporting Document(s) POC NOVA GLU 285 mg/dL (70-99) H [facility] [place] [facility] ID Date Data Source [id number] 02/14/2020 09:03:27 AM EDT [facility] Name Value Range Interpretation Code Description Data Tisha rce(s) Supporting Document(s) POC NOVA GLU 263 mg/dL (70-99) H [facility] [place] [facility] ID Date Data Source [id number] 02/14/2020 06:16:22 AM EDT [facility] Name Value Range Interpretation Code Description Data Tisha rce(s) Supporting Document(s) SODIUM 141 mmol/L (136-145) [facility] POTASSIUM 4.2 mmol/L (3.6-5.2) [facility] CHLORIDE 106 mmol/L (100-108) [facility] CO2 30 mmol/L (22-31) [facility] ANION GAP 5 mmol/L (7-16) L [facility] UREA NITROGEN 18 mg/dL (7-24) [facility] CREATININE 0.62 mg/dL (0.60-1.00) [facility] BUN/CREAT RATIO 29.0 RATIO (10.0-20.0) H [facility] GLUCOSE 250 mg/dL (70-99) H [facility] CALCIUM 8.5 mg/dL (8.4-10.2) [facility] GFR >60 ml/min/1.73m2 (>59) [facility] GFR ( AMER) >60 ml/min/1.73m2 (>59) [facility] GFR INTERPRETATION [facility] --NORMAL KIDNEY FUNCTION OR MILD DISEASE - GFR >OR= 60CHRONIC KIDNEY DISEASE - GFR 15 - 59RENAL FAILURE - GFR <15 Est. GFR calculation based on the MDRDstudy equation, which assumes a steadystate for creatinine. Est. GFR should notbe used for medication dosing. ID Date Data Source [id number] 02/14/2020 05:46:26 AM EDT [facility] Name Value Range Interpretation Code Description Data Tisha rce(s) Supporting Document(s) WBC 10.4 10*3/uL (4.1-11.0) [facility] RBC 3.38 10*6/uL (4.00-5.40) L [facility] HGB 9.5 g/dL (12.0-16.0) L [facility] HCT 27.9 % (36.0-47.0) L [facility] MCV 82.7 fL (80.0-95.0) [facility] MCH 28.1 pg (27.0-32.0) [facility] MCHC 34.0 g/dL (32.0-36.0) [facility] RDW 16.0 % (10.5-14.5) H [facility] PLT 287 10*3/uL (150-450) [facility] MPV 8.6 fL (7.1-10.7) [facility] ID Date Data Source [id number] 02/14/2020 04:33:00 AM EDT [facility] Name Value Range Interpretation Code Description Data Tisha rce(s) Supporting Document(s) Specimen Expiration Date Laboratory test result [facility] ([facility]) Patient Abo/Rh Laboratory test result ME ANY ([facility]) Antibody Screen Laboratory test result M BER[place] ([facility]) Blood product unit ID [#] Laboratory test result [facility] ([facility]) Blood bank comment Laboratory test result [facility] ([facility]) BLOOD TYPE CONFIRMED. Testing site Laboratory test result MEDE NT ([facility]) Blood product unit ID [#] 0 [facility] NT ([facility]) Blood Component Type Laboratory test result [facility] ([facility]) Laboratory test finding (navigational concept) Laboratory test result [facility] ([facility]) Blood product unit ID [#] Laboratory test result [facility] ([facility]) Crossmatch Laboratory test result [facility] ([facility]) Transfusion status Laboratory test result [facility] ([facility]) Laboratory test finding (navigational concept) Laboratory test result [facility] ([facility]) Blood product unit ID [#] 0 MEDE NT ([facility]) Blood Component Type Laboratory test result [facility] ([facility]) Crossmatch Laboratory test result [facility] ([facility]) Transfusion status Laboratory test result [facility] ([facility]) ID Date Data Source [id number] 02/13/2020 05:54:11 PM EDT [facility] Name Value Range Interpretation Code Description Data Tisha rce(s) Supporting Document(s) POC NOVA GLU 216 mg/dL (70-99) H [facility] ID Date Data Source [id number] 02/13/2020 12:54:38 PM EDT [facility] INFORMATIONPatient MRN Name Date of Age Gend*PT [id number] Tatianna Soto 1965 54 years F IPPT Location Admission Date/Time Visit ID Attending [id number] 02/05/20 0417 --- Dain Sanford MD([id number]) EPI ID CSN Admitting Provider [id number] Dain Sanford MD([id number]) [place] [address] OPERATIVE REPORT OPNAME: TATIANNA SOTO#: [id number] #: [id number] ADMISSION DATE: 02/05/2020DOB: [birth year] SEX: F PT TYPE: I VascACCT #: [id number] CARE PHYSICIAN: TOM CORONADO-SURBEDATE OF OPERATION: 02/12/2020PREOPERATIVE [...] directly over the great saphenous vein below theee and the entire great saphenous vein from [...] place, sewed in with 7-0 Prolene sutures, Jj flushed the graft and completed the anastomosis. [...] portions of the procedure.BETZY Borrego/CARMINE Job #: [id number] DOC #: [id number] Name Value Range Interpretation Code Description Data Tisha rce(s) Supporting Document(s) ID Date Data Source [id number] 02/13/2020 12:21:31 PM EDT [facility] Name Value Range Interpretation Code Description Data Tisha rce(s) Supporting Document(s) POC NOVA GLU 156 mg/dL (70-99) H [facility] [place] [facility] ID Date Data Source [id number] 02/13/2020 09:28:58 AM EDT [facility] Name Value Range Interpretation Code Description Data Tisha rce(s) Supporting Document(s) POC NOVA GLU 214 mg/dL (70-99) H [facility] [place] [facility] ID Date Data Source [id number] 02/13/2020 08:50:29 AM EDT [facility] Name Value Range Interpretation Code Description Data Tisha rce(s) Supporting Document(s) POC NOVA GLU 187 mg/dL (70-99) H [facility] [place] [facility] ID Date Data Source [id number] 02/13/2020 06:31:13 AM EDT [facility] Name Value Range Interpretation Code Description Data Tisha rce(s) Supporting Document(s) SODIUM 141 mmol/L (136-145) [facility] POTASSIUM 4.0 mmol/L (3.6-5.2) [facility] CHLORIDE 106 mmol/L (100-108) [facility] CO2 32 mmol/L (22-31) H [facility] ANION GAP 3 mmol/L (7-16) L [facility] UREA NITROGEN 17 mg/dL (7-24) [facility] CREATININE 0.77 mg/dL (0.60-1.00) [facility] BUN/CREAT RATIO 22.1 RATIO (10.0-20.0) H [facility] GLUCOSE 179 mg/dL (70-99) H [facility] CALCIUM 8.2 mg/dL (8.4-10.2) L [facility] GFR >60 ml/min/1.73m2 (>59) [facility] GFR ( AMER) >60 ml/min/1.73m2 (>59) [facility] GFR INTERPRETATION [facility] --NORMAL KIDNEY FUNCTION OR MILD DISEASE - GFR >OR= 60CHRONIC KIDNEY DISEASE - GFR 15 - 59RENAL FAILURE - GFR <15 Est. GFR calculation based on the MDRDstudy equation, which assumes a steadystate for creatinine. Est. GFR should notbe used for medication dosing. ID Date Data Source [id number] 02/13/2020 06:06:49 AM EDT [facility] Name Value Range Interpretation Code Description Data Tisha rce(s) Supporting Document(s) WBC 11.5 10*3/uL (4.1-11.0) [facility] RBC 3.36 10*6/uL (4.00-5.40) L [facility] HGB 9.2 g/dL (12.0-16.0) [facility] HCT 28.1 % (36.0-47.0) L [facility] MCV 83.6 fL (80.0-95.0) [facility] MCH 27.5 pg (27.0-32.0) [facility] MCHC 32.8 g/dL (32.0-36.0) [facility] RDW 16.0 % (10.5-14.5) [facility] PLT 269 10*3/uL (150-450) [facility] MPV 8.4 fL (7.1-10.7) [facility] ID Date Data Source [id number] 02/12/2020 08:04:33 PM EDT [facility] Name Value Range Interpretation Code Description Data Tisha rce(s) Supporting Document(s) POC NOVA GLU 143 mg/dL (70-99) H [facility] [place] [facility] STAFF ID Date Data Source [id number] 02/12/2020 05:48:09 PM EDT [facility] Name Value Range Interpretation Code Description Data Tisha rce(s) Supporting Document(s) POC NOVA GLU 160 mg/dL (70-99) [facility] [place] [facility] ID Date Data Source [id number] 02/12/2020 02:47:59 PM EDT [facility] NT INFORMATIONPatient MRN Name Date of Age Gend*PT [id number] Tatianna Soto 1965 54 years F IPPT Location Admission Date/Time Visit ID Attending Provider --- --- --- --- EPI ID CSN Admitting Provider [id number] ---AirwayPatient location during procedure: ORUrgency: electiveDifficult airway: noAdvanced airway equipment used: noStaffingPerformed by: Nelly Uysal, CRNAAnesthesiologist: Truong Sanches, DOIndications and Patient ConditionIndications for airway management: anesthesiaPreoxygenated: [...] to lips: 21 cmPlacement verified by: + [id number] view: grade I - full view of glottis Name Value Range Interpretation Code Description Data Tisha rce(s) Supporting Document(s) ID Date Data Source [id number] 02/12/2020 12:49:35 PM EDT [facility] Name Value Range Interpretation Code Description Data Tisha rce(s) Supporting Document(s) POC NOVA GLU 232 mg/dL (70-99) [facility] [place] [facility] ID Date Data Source [id number] 02/12/2020 02:38:33 PM EDT [facility] Name Value Range Interpretation Code Description Data Tisha rce(s) Supporting Document(s) POC NOVA GLU 229 mg/dL (70-99) [facility] [place] [facility] ID Date Data Source [id number] 02/12/2020 09:14:58 AM EDT [facility] Name Value Range Interpretation Code Description Data Tisha rce(s) Supporting Document(s) POC NOVA GLU 233 mg/dL (70-99) [facility] [place] [facility] ID Date Data Source [id number] 02/12/2020 05:55:00 AM EDT [facility] ([facility]) Name Value Range Interpretation Code Description Data Tisha rce(s) Supporting Document(s) Laboratory test finding (navigational concept) Laboratory test result [facility] ([facility]) THIS ASSAY AMPLIFIES AND DETECTS THE TAR GET RNA USING REAL-TIME PCR. NEGATIVE 2019_NCOV RT-PCR RESULTS DO NOT PRECLUDE 2019_NCOV INFECTION AND SHOULD NOT BE USED THE SOLE BASIS FOR PATIENT MANAGEMENT DECISIONS. Specimen Description Laboratory test result [facility] ([facility]) Laboratory comment [Text] in Report Narrative Laboratory test result [facility] ([facility]) THE [place] FDA HAS MADE THIS TEST AVAILABL E UNDER AN EMERGENCY USE AUTHORIZATION (EUA) FOR THE DETECTION AND/OR DIAGNOSIS OF THE VIRUS THAT CAUSES COVID-19. EMAILED RESULTS TO [facility] AT 7718 XL [id number]. [id number] Employed In [facility] Laboratory test result [facility] ([facility]) Symptomatic Laboratory test result MEDEN T ([facility]) First Test Laboratory test result [facility] ([facility]) Hospitalized Laboratory test result MEDE NT ([facility]) Illness or injury onset date and time Laboratory test result [facility] ([facility]) Icu Laboratory test result [facility] ([facility]) Laboratory test result [facility] test result [facility]) ID Date Data Source [id number] 02/12/2020 04:42:48 AM EDT [facility] Name Value Range Interpretation Code Description Data Tisha rce(s) Supporting Document(s) SODIUM 140 mmol/L (136-145) [facility] POTASSIUM 4.3 mmol/L (3.6-5.2) [facility] CHLORIDE 103 mmol/L (100-108) [facility] CO2 30 mmol/L (22-31) [facility] ANION GAP 7 mmol/L (7-16) [facility] UREA NITROGEN 19 mg/dL (7-24) [facility] CREATININE 0.82 mg/dL (0.60-1.00) [facility] BUN/CREAT RATIO 23.2 RATIO (10.0-20.0) [facility] GLUCOSE 284 mg/dL (70-99) H [facility] CALCIUM 8.3 mg/dL (8.4-10.2) L [facility] GFR >60 ml/min/1.73m2 (>59) [facility] GFR ( AMER) >60 ml/min/1.73m2 (>59) [facility] GFR INTERPRETATION [facility] --NORMAL KIDNEY FUNCTION OR MILD DISEASE - GFR >OR= 60CHRONIC KIDNEY DISEASE - GFR 15 - 59RENAL FAILURE - GFR <15 Est. GFR calculation based on the MDRDstudy equation, which assumes a steadystate for creatinine. Est. GFR should notbe used for medication dosing. ID Date Data Source [id number] 02/12/2020 04:03:40 AM EDT [facility] [place] Name Value Range Interpretation Code Description Data Tisha rce(s) Supporting Document(s) WBC 10.1 10*3/uL (4.1-11.0) [facility] RBC 3.86 10*6/uL (4.00-5.40) L [facility] HGB 10.6 g/dL (12.0-16.0) [facility] HCT 31.5 % (36.0-47.0) L [facility] MCV 81.6 fL (80.0-95.0) [facility] MCH 27.4 pg (27.0-32.0) [facility] MCHC 33.6 g/dL (32.0-36.0) [facility] RDW 16.0 % (10.5-14.5) [facility] PLT 269 10*3/uL (150-450) [facility] MPV 8.3 fL (7.1-10.7) [facility] ID Date Data Source [id number] 02/12/2020 12:00:00 AM EDT [facility] Name Value Range Interpretation Code Description Data Tisha rce(s) Supporting Document(s) SARS coronavirus 2 RNA [Presence] in Res piratory specimen by CHLOE with probe detection [facility] This lab was reported by [facility] ID Date Data Source [id number] 02/12/2020 02:00:35 AM EDT [facility] Name Value Range Interpretation Code Description Data Tisha rce(s) Supporting Document(s) SPECIMEN DESCRIPTION [facility] COVID19 RESULT (NDET) [facility] THIS ASSAY AMPLIFIES AND DETECTSTHE TARG ET RNA USING REAL-TIME PCR.NEGATIVE 2019_NCOV RT-PCR RESULTS DONOT PRECLUDE 2019_NCOV INFECTION ANDSHOULD NOT BE USED THE SOLE BASISFOR PATIENT MANAGEMENT DECISIONS. COMMENT [facility] [place] UNDER AN EMERGENCY USE AUTHORIZATION(EUA ) FOR THE DETECTION AND/OR DIAGNOSISOF THE VIRUS THAT CAUSES COVID-19.EMAILED RESULTS TO [facility] AT 8085 PY [phone]. [id number] FIRST TEST [facility] [employer] [facility] SYMPTOMATIC [facility] DATE OF SYMPT ONSET [facility] HOSPITALIZED [facility] [place] [facility] CONGREGATE CARE SET [facility] ID Date Data Source [id number] 02/11/2020 11:57:13 PM EDT [facility] Name Value Range Interpretation Code Description Data Tisha rce(s) Supporting Document(s) POC NOVA GLU 290 mg/dL (70-99) H [facility] [place] [facility] ID Date Data Source [id number] 02/11/2020 04:54:06 PM EDT [facility] Name Value Range Interpretation Code Description Data Tisha rce(s) Supporting Document(s) POC NOVA GLU 287 mg/dL (70-99) H [facility] [place] [facility] ID Date Data Source [id number] 02/11/2020 04:19:00 PM EDT [facility] ([facility]) Name Value Range Interpretation Code Description Data Tisha rce(s) Supporting Document(s) Laboratory test finding (navigational concept) Laboratory test result [facility] ([facility]) Special Requests Laboratory test result [facility] ([facility]) Specimen Description Laboratory test result [facility] ([facility]) Report Status Laboratory test result [facility] ([facility]) ID Date Data Source [id number] 02/11/2020 02:14:58 PM EDT [facility] Name Value Range Interpretation Code Description Data Tisha rce(s) Supporting Document(s) POC NOVA GLU 297 mg/dL (70-99) H [facility] [place] [facility] ID Date Data Source [id number] 02/11/2020 10:33:00 AM EDT [facility] ([facility]) Name Value Range Interpretation Code Description Data Tisha rce(s) Supporting Document(s) Vancomycin [Mass/volume] in Serum or Plasma --trough 16.5 ug/mL 10.0- 20.0 [facility] ([facility]) ID Date Data Source [id number] 02/11/2020 10:30:00 AM EDT [facility] ([facility]) Name Value Range Interpretation Code Description Data Tisha rce(s) Supporting Document(s) Magnesium [Mass/volume] in Serum or Plasma 1.9 mg/dL 1.7-2.4 [facility] ([facility]) ID Date Data Source [id number] 02/11/2020 08:57:29 AM EDT [facility] [place] Name Value Range Interpretation Code Description Data Tisha rce(s) Supporting Document(s) POC NOVA GLU 223 mg/dL (70-99) H [facility] [place] [facility] ID Date Data Source [id number] 02/11/2020 06:34:06 AM EDT [facility] Name Value Range Interpretation Code Description Data Tisha rce(s) Supporting Document(s) VANCOMYCIN TROUGH 16.5 ug/mL (10.0-20.0) [facility] ID Date Data Source [id number] 02/11/2020 06:31:31 AM EDT [facility] Name Value Range Interpretation Code Description Data Tisha rce(s) Supporting Document(s) MAGNESIUM 1.9 mg/dL (1.7-2.4) [facility] ID Date Data Source [id number] 02/11/2020 06:31:31 AM EDT [facility] Name Value Range Interpretation Code Description Data Tisha rce(s) Supporting Document(s) SODIUM 141 mmol/L (136-145) [facility] POTASSIUM 4.2 mmol/L (3.6-5.2) [facility] CHLORIDE 107 mmol/L (100-108) [facility] CO2 29 mmol/L (22-31) [facility] ANION GAP 5 mmol/L (7-16) L [facility] UREA NITROGEN 19 mg/dL (7-24) [facility] CREATININE 0.76 mg/dL (0.60-1.00) [facility] BUN/CREAT RATIO 25.0 RATIO (10.0-20.0) H [facility] GLUCOSE 234 mg/dL (70-99) H [facility] CALCIUM 8.2 mg/dL (8.4-10.2) L [facility] GFR >60 ml/min/1.73m2 (>59) [facility] GFR ( AMER) >60 ml/min/1.73m2 (>59) [facility] GFR INTERPRETATION [facility] --NORMAL KIDNEY FUNCTION OR MILD DISEASE - GFR >OR= 60CHRONIC KIDNEY DISEASE - GFR 15 - 59RENAL FAILURE - GFR <15 Est. GFR calculation based on the MDRDstudy equation, which assumes a steadystate for creatinine. Est. GFR should notbe used for medication dosing. ID Date Data Source [id number] 02/11/2020 05:48:50 AM EDT [facility] Name Value Range Interpretation Code Description Data Tisha rce(s) Supporting Document(s) WBC 10.2 10*3/uL (4.1-11.0) [facility] RBC 3.73 10*6/uL (4.00-5.40) L [facility] HGB 10.3 g/dL (12.0-16.0) L [facility] HCT 30.7 % (36.0-47.0) L [facility] MCV 82.2 fL (80.0-95.0) [facility] MCH 27.7 pg (27.0-32.0) [facility] MCHC 33.7 g/dL (32.0-36.0) [facility] RDW 15.9 % (10.5-14.5) H [facility] PLT 228 10*3/uL (150-450) [facility] MPV 8.5 fL (7.1-10.7) [facility] ID Date Data Source [id number] 02/10/2020 07:54:00 PM EDT [facility] ([facility]) Name Value Range Interpretation Code Description Data Tisha rce(s) Supporting Document(s) Special Requests Laboratory test result [facility] ([facility]) Specimen Description Laboratory test result [facility] ([facility]) Report Status Laboratory test result [facility] ([facility]) Laboratory test finding (navigational concept) Laboratory test result [facility] ([facility]) ID Date Data Source [id number] 02/10/2020 05:16:39 PM EDT [facility] Name Value Range Interpretation Code Description Data Tisha rce(s) Supporting Document(s) POC NOVA GLU 298 mg/dL (70-99) H [facility] [place] [facility] STA[facility] ID Date Data Source [id number] 02/10/2020 03:27:38 PM EDT [facility] Name Value Range Interpretation Code Description Data Tisha rce(s) Supporting Document(s) POC NOVA GLU 362 mg/dL (70-99) H [facility] [place] [facility] ID Date Data Source [id number] 02/10/2020 01:12:32 PM EDT [facility] Name Value Range Interpretation Code Description Data Tisha rce(s) Supporting Document(s) POC NOVA GLU 440 mg/dL (70-99) HH [facility] [place] [facility] ID Date Data Source [id number] 02/10/2020 09:36:28 AM EDT [facility] Name Value Range Interpretation Code Description Data Tisha rce(s) Supporting Document(s) POC NOVA GLU 269 mg/dL (70-99) H [facility] [place] [facility] ID Date Data Source [id number] 02/14/2020 12:34:03 AM EDT [facility] SPEC EXP DATE 02/13/2020PATI ENT ABO/Rh B NEGATIVEANTIBODY SCREEN NEGATIVETESTING SITE PERFORMED AT [address] [place] [address] [id number] BANK COMMENT BLOOD TYPE CONFIRMED.UNIT NUMBER [id number] COMPONENT TYPE LEUKOPOOR RED CELLS (PT B)UNIT DIVISION 00STATUS OF UNIT REL FROM ALLOCTRANSFUSION STATUS OK TO TRANSFUSECROSSMATCH RESULT COMPATIBLEUNIT NUMBER [id number] COMPONENT TYPE LEUKOPOOR RED CELLSUNIT DIVISION 00STATUS OF UNIT REL FROM ALLOCTRANSFUSION STATUS OK TO TRANSFUSECROSSMATCH RESULT COMPATIBLE Name Value Range Interpretation Code Description Data Tisha rce(s) Supporting Document(s) TYPE AND SCREEN [facility] PATIENT ABO/Rh B NEGATIVE ID Date Data Source [id number] 02/10/2020 05:00:42 AM EDT [facility] Name Value Range Interpretation Code Description Data Tisha rce(s) Supporting Document(s) MAGNESIUM 2.1 mg/dL (1.7-2.4) [facility] ID Date Data Source [id number] 02/10/2020 05:00:42 AM EDT [facility] Name Value Range Interpretation Code Description Data Tisha rce(s) Supporting Document(s) SODIUM 141 mmol/L (136-145) [facility] POTASSIUM 4.2 mmol/L (3.6-5.2) [facility] CHLORIDE 106 mmol/L (100-108) [facility] CO2 29 mmol/L (22-31) [facility] ANION GAP 6 mmol/L (7-16) L [facility] UREA NITROGEN 19 mg/dL (7-24) [facility] CREATININE 0.90 mg/dL (0.60-1.00) [facility] BUN/CREAT RATIO 21.1 RATIO (10.0-20.0) H [facility] GLUCOSE 290 mg/dL (70-99) H [facility] CALCIUM 8.3 mg/dL (8.4-10.2) L [facility] GFR >60 ml/min/1.73m2 (>59) [facility] GFR ( AMER) >60 ml/min/1.73m2 (>59) [facility] GFR INTERPRETATION [facility] --NORMAL KIDNEY FUNCTION OR MILD DISEASE - GFR >OR= 60CHRONIC KIDNEY DISEASE - GFR 15 - 59RENAL FAILURE - GFR <15 Est. GFR calculation based on the MDRDstudy equation, which assumes a steadystate for creatinine. Est. GFR should notbe used for medication dosing. ID Date Data Source [id number] 02/10/2020 04:32:47 AM EDT [facility] Name Value Range Interpretation Code Description Data Tisha rce(s) Supporting Document(s) WBC 10.1 10*3/uL (4.1-11.0) [facility] RBC 3.84 10*6/uL (4.00-5.40) L [facility] HGB 10.5 g/dL (12.0-16.0) L [facility] HCT 31.9 % (36.0-47.0) L [facility] MCV 83.1 fL (80.0-95.0) [facility] MCH 27.4 pg (27.0-32.0) [facility] MCHC 33.0 g/dL (32.0-36.0) [facility] RDW 15.8 % (10.5-14.5) H [facility] PLT 216 10*3/uL (150-450) [facility] MPV 8.9 fL (7.1-10.7) [facility] ID Date Data Source [id number] 02/09/2020 06:26:35 PM EDT [facility] Name Value Range Interpretation Code Description Data Tisha rce(s) Supporting Document(s) POC NOVA GLU 259 mg/dL (70-99) H [facility] [place] [facility] ID Date Data Source [id number] 02/09/2020 02:44:00 PM EDT [facility] ([facility]) Name Value Range Interpretation Code Description Data Tisha rce(s) Supporting Document(s) Microscopic observation [Identifier] in Unspecified sp ecimen by Gram stain Laboratory test result [facility] ([facility]) Few (<10/LPF) White Blood Cellsmoderate (5 To 10/Oif) Gram Positive Cocci Specimen Description Laboratory test result [facility] ([facility]) Special Requests Laboratory test result [facility] ([facility]) Report Status Laboratory test result [facility] ([facility]) Laboratory test finding (navigational concept) [facility] ID Date Data Source [id number] 02/09/2020 10:35:54 AM EDT [facility] NT INFORMATIONPatient MRN Name Date of Age Gend*PT [id number] Tatianna Soto 1965 54 years F IPPT Location Admission Date/Time Visit ID Attending [id number] 02/05/20 0417 --- Dain Sanford MD([id number]) EPI ID CSN Admitting Provider [id number] Dain Sanford MD([id number])NAME: Tatianna Charles Lorenz#: [id number] #: [id number] DATE: 02/09/2020 PT TYPE: C SURACCT #: [id number] : 1965 SEX: femalePrimary Care Physician: TOM RUANO, [facility] DATE: 02/09/2020SURGEON: Dain Sanford MDASSISTANT: nonePREOPERATIVE DX:bilateral [...] [facility]. She has multiple stents which have [...] a micropuncture,followed by a J-wire and a 5-Latvian Sheath. Next an Omni flush catheter wasplaced [...] spot for a bypass graft in the [id number] of the popliteal just distal to the stent. The peroneal and AT are thetwo main tibial vessels to the leg and the dorsalis pedis is patent to theankle. The PT is completely occluded throughout. I then performed finalangioplasty of the left common iliac artery and left external iliac artery withthe [id number] clare balloon and the [id number] clare balloons. Completionangiogram now performed retrograde from [...] bilateral legs. She ultimatelyone day might need worship of flow surgically to the profunda on [...] rce(s) Supporting Document(s) ID Date Data Source [id number] 02/09/2020 10:49:28 AM EDT [facility] Name Value Range Interpretation Code Description Data Tisha rce(s) Supporting Document(s) POC NOVA GLU 155 mg/dL (70-99) H [facility] PERFORMED BY [facility] CLIN[facility] STA[facility] ID Date Data Source [id number] 02/09/2020 10:09:[address] [facility] Name Value Range Interpretation Code Description Data Tisha rce(s) Supporting Document(s) IR IS ARTERIOGRAM ILIAC SELECTIVE [facility] ID Date Data Source [id number] 02/09/2020 01:19:48 PM EDT [facility] Name Value Range Interpretation Code Description Data Tisha rce(s) Supporting Document(s) VANCOMYCIN TROUGH 9.9 ug/mL (10.0-20.0) L [facility] ID Date Data Source [id number] 02/09/2020 04:00:49 AM EDT [facility] Name Value Range Interpretation Code Description Data Tisha rce(s) Supporting Document(s) SODIUM 143 mmol/L (136-145) [facility] POTASSIUM 4.1 mmol/L (3.6-5.2) [facility] CHLORIDE 109 mmol/L (100-108) H [facility] CO2 30 mmol/L (22-31) [facility] ANION GAP 4 mmol/L (7-16) L [facility] UREA NITROGEN 18 mg/dL (7-24) [facility] CREATININE 0.67 mg/dL (0.60-1.00) [facility] BUN/CREAT RATIO 26.9 RATIO (10.0-20.0) H [facility] GLUCOSE 153 mg/dL (70-99) H [facility] CALCIUM 8.4 mg/dL (8.4-10.2) [facility] GFR >60 ml/min/1.73m2 (>59) [facility] GFR ( AMER) >60 ml/min/1.73m2 (>59) [facility] GFR INTERPRETATION [facility] --NORMAL KIDNEY FUNCTION OR MILD DISEASE - GFR >OR= 60CHRONIC KIDNEY DISEASE - GFR 15 - 59RENAL FAILURE - GFR <15 Est. GFR calculation based on the MDRDstudy equation, which assumes a steadystate for creatinine. Est. GFR should notbe used for medication dosing. ID Date Data Source [id number] 02/09/2020 04:00:49 AM EDT [facility] Name Value Range Interpretation Code Description Data Tisha rce(s) Supporting Document(s) MAGNESIUM 2.2 mg/dL (1.7-2.4) [facility] ID Date Data Source [id number] 02/09/2020 03:22:08 AM EDT [facility] Name Value Range Interpretation Code Description Data Tisha rce(s) Supporting Document(s) WBC 10.4 10*3/uL (4.1-11.0) [facility] RBC 4.14 10*6/uL (4.00-5.40) [facility] HGB 11.4 g/dL (12.0-16.0) L [facility] HCT 34.6 % (36.0-47.0) L [facility] MCV 83.8 fL (80.0-95.0) [facility] MCH 27.5 pg (27.0-32.0) [facility] MCHC 32.9 g/dL (32.0-36.0) [facility] RDW 15.6 % (10.5-14.5) H [facility] PLT 215 10*3/uL (150-450) [facility] MPV 8.7 fL (7.1-10.7) [facility] ID Date Data Source [id number] 02/08/2020 05:52:10 PM EDT [facility] Name Value Range Interpretation Code Description Data Tisha rce(s) Supporting Document(s) POC NOVA GLU 212 mg/dL (70-99) H [facility] [place] [facility] STAFF ID Date Data Source [id number] 02/08/2020 04:32:59 PM EDT [address] [address]Jayfodi Name: Tatianna SotoB: 1965Sex: FOrdering Provider: HAYLEE FLANNERYuthorizing Prov: HAYLEE Castro Provider: Procedure Performed: MRI LOW EXT NO JNT WO CONTRAST LEFTExam Date: 02/08/2020 15:20MRN: [id number] Number: [id number] Class: INFORMATION: Exam: MR Left Lower Extremity [...] rce(s) Supporting Document(s) ID Date Data Source [id number] 02/08/2020 02:51:29 PM EDT [facility] Name Value Range Interpretation Code Description Data Tisha rce(s) Supporting Document(s) POC NOVA GLU 263 mg/dL (70-99) H [facility] [place] [facility] STA[facility] ID Date Data Source [id number] 02/08/2020 01:08:00 PM EDT [facility] ([facility]) Name Value Range Interpretation Code Description Data Tisha rce(s) Supporting Document(s) C reactive protein [Mass/volume] in Serum or Plasma 17.6 mg/dL 0.0-0. 5 [facility] ([facility]) ID Date Data Source [id number] 02/08/2020 02:17:03 PM EDT [facility] Name Value Range Interpretation Code Description Data Tisha rce(s) Supporting Document(s) POC NOVA GLU 169 mg/dL (70-99) H [facility] [place] [facility] STA[facility] ID Date Data Source [id number] 02/08/2020 12:41:[address] [facility] Name Value Range Interpretation Code Description Data Tisha rce(s) Supporting Document(s) EKG [facility] [id number] [file] [id number] ID Date Data Source [id number] 02/08/2020 12:32:23 PM EDT [address] [id number] Name: TATIANNA SOTODOB: 1965Sex: FOrdering Provider: DENISE CONTRERASSTOCKAuthorizing Prov: DENISE COMSTOCKReferring Provider: Procedure Performed: XR CHEST PORTABLEExam Date: 02/08/2020 12:19MRN: [id number] Number: [id number] Class: InpatientAccount #: [id number] for Exam: in PACU, s/p sternal wire removalTechnique: AP portable view obtained.Comparison: February 05, 2020Findings: PICC line tip is at the level superior vena cava. No pneumothorax is demonstrated. No pleural effusion demonstrated. No adenopathy is demonstrated. Lungs are clear. Heart size is normal.IMPRESSION: No acute abnormality.Report electronically signed by: MCKAY SENA On 02/08/2020 12:32 PMWorkstation ID: [id number] Name Value Range Interpretation Code Description Data Tisha rce(s) Supporting Document(s) ID Date Data Source [id number] 02/08/2020 12:08:05 PM EDT [facility] Name Value Range Interpretation Code Description Data Tisha rce(s) Supporting Document(s) POC NOVA GLU 182 mg/dL (70-99) H [facility] PERFORMED BY [facility] CLIN[facility] STAFF ID Date Data Source [id number] 02/08/2020 11:24:00 AM EDT [facility] ([facility]) Name Value Range Interpretation Code Description Data Tisha rce(s) Supporting Document(s) Erythrocyte sedimentation rate 96 mm/h 0-30 [facility] ([facility]) ID Date Data Source [id number] 02/08/2020 10:35:29 AM EDT [facility] NT INFORMATIONPatient MRN Name Date of Age Gend*PT [id number] Tatianna Soto 1965 54 years F IPPT Location Admission Date/Time Visit ID [facility]/05/20 0417 --- Dain Sanford MD([id number]) EPI ID CSN Admitting Provider [id number] Dain Sanford MD([id number])H&P reviewed. The patient was examined and there are no changes to the H&P.Saba Smith MD10:34 AM Name Value Range Interpretation Code Description Data Tisha rce(s) Supporting Document(s) ID Date Data Source [id number] 02/08/2020 08:29:24 AM EDT [facility] Name Value Range Interpretation Code Description Data Tisha rce(s) Supporting Document(s) POC NOVA GLU 178 mg/dL (70-99) H [facility] [place] [facility]FOR[facility] BY [facility] ID Date Data Source [id number] 02/08/2020 09:09:28 AM EDT [facility] Name Value Range Interpretation Code Description Data Tisha rce(s) Supporting Document(s) C REACTIVE PROTEIN @ 17.6 mg/dL (0.0-0.5) H [facility] ID Date Data Source [id number] 02/08/2020 07:24:58 AM EDT [facility] Name Value Range Interpretation Code Description Data Tisha rce(s) Supporting Document(s) ESR 96 mm/h (0-30) H [facility] ID Date Data Source [id number] 02/08/2020 06:50:28 AM EDT [facility] Name Value Range Interpretation Code Description Data Tisha rce(s) Supporting Document(s) VANCOMYCIN TROUGH 11.9 ug/mL (10.0-20.0) [facility] ID Date Data Source [id number] 02/08/2020 06:50:28 AM EDT [facility] Name Value Range Interpretation Code Description Data Tisha rce(s) Supporting Document(s) SODIUM 140 mmol/L (136-145) [facility] POTASSIUM 3.9 mmol/L (3.6-5.2) [facility] CHLORIDE 105 mmol/L (100-108) [facility] CO2 30 mmol/L (22-31) [facility] ANION GAP 5 mmol/L (7-16) L [facility] UREA NITROGEN 18 mg/dL (7-24) [facility] CREATININE 0.65 mg/dL (0.60-1.00) [facility] BUN/CREAT RATIO 27.7 RATIO (10.0-20.0) H [facility] GLUCOSE 228 mg/dL (70-99) H [facility] CALCIUM 8.6 mg/dL (8.4-10.2) [facility] GFR >60 ml/min/1.73m2 (>59) [facility] GFR ( AMER) >60 ml/min/1.73m2 (>59) [facility] GFR INTERPRETATION [facility] --NORMAL KIDNEY FUNCTION OR MILD DISEASE - GFR >OR= 60CHRONIC KIDNEY DISEASE - GFR 15 - 59RENAL FAILURE - GFR <15 Est. GFR calculation based on the MDRDstudy equation, which assumes a steadystate for creatinine. Est. GFR should notbe used for medication dosing. ID Date Data Source [id number] 02/07/2020 11:23:46 PM EDT [facility] Name Value Range Interpretation Code Description Data Tisha rce(s) Supporting Document(s) POC NOVA GLU 137 mg/dL (70-99) H [facility] [place] [facility] ID Date Data Source [id number] 02/07/2020 04:40:16 PM EDT [facility] CenterPAT[facility] NT INFORMATIONPatient MRN Name Date of Age Gend*PT [id number] Tatianna Soto 1965 54 years F IPPT Location Admission Date/Time Visit ID Attending [id number] 02/05/20 0417 --- Dain Sanford MD([id number]) EPI ID CSN Admitting Provider [id number] Dain Sanford MD([id number])Inpatient Consult Megan SotoMRN: [id number] by Dain Sanford MD to evaluate Tatianna Soto for osteomyelitis of theright footRecords reviewed.HPI: The patient is a 54-year-old female with a history of chronic obstructivepulmonary disease, gastroesophageal reflux disease, coronary artery diseasestatus post bypass surgery 2016, hyperlipidemia, type 2 diabetes with peripheralNeuropathy, and peripheral vascular disease with claudication.Patient [facility] with 2 hours of acute right foot andcalf pain. She was started on intravenous heparin and transferred to [facility] to Dr. Sanford's serviceRight femoral endarterectomy, iliac [...] VEIN HARVEST; Surgeon: Saba Smith MD; Location: [facility]; Service: Cardiac/Open Heart; Laterality: N/A; FOOT SURGERY [...] femoral endarterectomy, Iliac to profunda femoral bypass [id number] ringed PTFE and Jump graft from the Right Iliofemoral bypass to the belowknee popliteal artery using 6mm Ringed PTFE. Ligation of the SFA.; Surgeon:Dain Sanford MD; Laterality: Right;Medications:Scheduled Meds: aspirin 325 mg Oral Daily atorvastatin 80 mg Oral Daily buPROPion 150 mg Oral Daily [START ON 02/08/2020] ceFAZolin (ANCEF) IV 2 g Intravenous Lead Supply Worker to OR clopidogrel 75 mg Oral Daily clotrimazole 1 application Topical BID docusate sodium 100 mg Oral BID [START ON 02/08/2020] escitalopram 10 mg Oral Daily ferrous sulfate 325 mg Oral Daily with breakfast heparin (porcine) 5,000 Units Subcutaneous Q8H [facility] insulin glargine 20 Units Subcutaneous BID insulin lispro 2-24 Units Subcutaneous With meals sliding scale lisinopril 5 mg Oral Daily mometasone-formoterol 2 puff Inhalation RTBID mupirocin Topical Daily normal saline flush 10 mL Intravenous Q8H [facility] normal saline flush 3 mL Intravenous Per Protocol pantoprazole 40 mg Oral Daily pentoxifylline 400 mg Oral TID with meals piperacillin-tazobactam (ZOSYN) IV 3.375 g Intravenous Q6H pregabalin 150 mg Oral BID senna-docusate 2 tablet Oral Nightly vancomycin 1,000 mg Intravenous [id number] Infusions: electrolyte-R Stopped (02/06/20 7640)PRN Meds:.acetaminophen, albuterol, bisacodyl, cyclobenzaprine, magnesiumhydroxide, metoclopramide, mineral [...] on phone: None Gets together: None Attends alevism service: None Active member of club or [...] children, all > 22 yo.had worked in [employer], last working 2008.Review of Systems:All review of [...] palpable sternal wires. Sternal woundwell- healedHeart exam S1-V1Otldjfw soft, obese. Nontender. Positive bowel sounds. WithouthepatosplenomegalyRight [...] Procedure Component Value Units Date/Time Anaerobic culture [[id number]] Collected: 02/07/201014 Order Status: Sent Specimen: Wound Updated: 02/07/20 1133 Narrative: RIGHT FIFTH TOE. SAMPLE SENT. Anaerobic culture [[id number]] Collected: 02/07/201014 Order Status: Sent Specimen: Wound Updated: 02/07/20 1132 Narrative: LEFT HEEL. CULTURE ALREADY SENT. Wound culture [[id number]] Collected: 02/07/201014 Order Status: Sent Specimen: Non-Surg Soft Tissue Swab Updated: Narrative: RIGHT TOE WOUND Wound culture [[id number]] Collected: 02/07/201014 Order Status: Sent Specimen: Non-Surg Soft Tissue Swab Updated: Narrative: LEFT HEEL WOUND Blood Culture Peripheral x 1 Set (2 bottles aerobic and anaerobic) [[id number]]Collected: 02/05/20608 Order Status: Completed Specimen: Periphe ral Updated: 02/07/20 1057 Specimen Description PERIPHERAL 2 Special Requests NONE Culture Result NO GROWTH 2 DAYS Report Status PENDING Blood Culture Peripheral x 1 Set (2 bottles aerobic and anaerobic) [[id number]]Collected: 02/05/2009 Order Status: Completed Specimen: Peripheral Updated: 02/07/20 1057 Specimen Description PERIPHERAL 1 Special Requests NONE Culture Result NO GROWTH 2 DAYS Report Status PENDING 2019 nCoV Amplified [[id number]] Collected: 02/05/20 1445 Order Status: Completed Specimen: [...] THE VIRUS THAT CAUSES COVID-19.RESULTS EMAILED TO [facility] AT 5875. [id number]. FIRST TEST YES EMPLOYED IN HLTHCARE NO SYMPTOMATIC NO DATE OF SYMPT ONSET NOT APPLICABLE HOSPITALIZED YES ICU NO CONGREGATE CARE SET NO NO 2019 nCoV Amplified [[id number]] Order Status: Canceled Specimen: Swab from NasopharyngealImpression and Recommendations:Principal Problem: Ischemia of right lower extremityActive Problems: Type 2 diabetes mellitus with circulatory disorder, with long-term current useof insulin Heavy cigarette smoker (20-39 per day) HLD (hyperlipidemia) Coronary artery disease involving [place] coronary artery of [place]ue heartwithout angina pectoris Peripheral vascular disease COPD (chronic obstructive pulmonary disease) Osteomyelitis of rsrq43-wbbg-cil female with type 2 diabetes with diabetic [...] with Dr. Cohnm3-herpes labialis Valtrex x1 day.Signature: TIMA Sandovalate: February 07, 2020Time: 4:02 PM Name Value Range Interpretation Code Description Data Tisha rce(s) Supporting Document(s) ID Date Data Source [id number] 02/07/2020 04:22:00 PM EDT [facility] ([facility]) Name Value Range Interpretation Code Description Data Tisha rce(s) Supporting Document(s) Est. Average Glucose 186 mg/dL [facility] ([facility]) Hemoglobin A1c/Hemoglobin.total in Blood 8.1 % 4.0-6.0 [facility] ([facility]) Performed using Siemens Dinuba immunoassa y. Care must be taken when interpreting HbA1c results in patients with a hemoglobin variant or decreased erythrocyte lifespan. Values 5.7 - 6.4% suggest prediabetes. Values >=6.5% are diagnostic for diabetes. REFERENCE: DIABETES CARE 2018: 41(S13-S27). PERFORMED AT [address] [place] [id number] ID Date Data Source [id number] 02/07/2020 04:17:00 PM EDT [facility] ([facility]) Name Value Range Interpretation Code Description Data Tisha rce(s) Supporting Document(s) Prothrombin time (PT) in control Platelet poor plasma by Coagulation assay 10.3 s 9.2-11.9 [facility] ([facility]) INR in Platelet poor plasma by Coagulation assay 0.98 [facility]) SUGGESTED THERAPEUTIC RANGES USING INR F OR STABILIZED ANTICOAGULATED PATIENTS: STANDARD DOSE THERAPY INR 2.0-3.0 DVT, PE, PREVENT DVT OR EMBOLISM HIGH DOSE THERAPY INR 2.5-3.5 PREVENT EMBOLISM FROM MECHANICAL HEART VALVE ID Date Data Source [id number] 02/07/2020 04:17:00 PM EDT [facility] ([facility]) Name Value Range Interpretation Code Description Data Tisha rce(s) Supporting Document(s) aPTT in Platelet poor plasma by Coagulation assay 25.1 s 22.0-34. 3 [facility] ([facility]) ID Date Data Source [id number] 02/07/2020 02:05:34 PM EDT [facility] Name Value Range Interpretation Code Description Data Tisha rce(s) Supporting Document(s) POC NOVA GLU 244 mg/dL (70-99) H [facility] PERFORMED BY [facility] CLIN[facility] STAFF ID Date Data Source [id number] 02/07/2020 12:18:33 PM EDT [facility] Name Value Range Interpretation Code Description Data Tisha rce(s) Supporting Document(s) APTT 25.1 s (22.0-34.3) [facility] Kendall Smith ID Date Data Source [id number] 02/07/2020 12:18:33 PM EDT [facility] Name Value Range Interpretation Code Description Data Tisha rce(s) Supporting Document(s) PT 10.3 s (9.2-11.9) [facility] INR 0.98 [facility] SUGGESTED THERAPEUTIC RANGES USING INR F ORSTABILIZED ANTICOAGULATED PATIENTS:STANDARD DOSE THERAPY INR 2.0-3.0 DVT, PE, PREVENT DVT OR EMBOLISMHIGH DOSE THERAPY INR 2.5-3.5 PREVENT EMBOLISM FROM MECHANICAL HEART VALVE ID Date Data Source [id number] 02/07/2020 12:23:15 PM EDT [facility] Name Value Range Interpretation Code Description Data Tisha rce(s) Supporting Document(s) HEMOGLOBIN A1C @ 8.1 % (4.0-6.0) H [facility] kylie CEDILLO Performed using Siemens Dinuba immunoassa y.Care must be taken when interpreting TuT1ogysmzug in patients with a hemoglobin variantor decreased erythrocyte lifespan. Values 5.7 - 6.4% suggest prediabetes.Values >=6.5% are diagnostic for diabetes.REFERENCE: DIABETES CARE 2018: 41(S13-S27).PERFORMED AT [address] [place] [address] EST AVERAGE GLUCOSE 186 mg/dL [facility] ID Date Data Source [id number] 02/11/2020 05:12:29 PM EDT [facility] SPECIMEN DESCRIPTION NON-SURG SOF T TISSUE SWAB LEFT HEEL WOUNDSPECIAL REQUESTS NONECULTURE RESULTS MODERATE FINEGOLDIA MAGNAREPORT STATUS FINAL 02/11/2020 Name Value Range Interpretation Code Description Data Tisha rce(s) Supporting Document(s) ID Date Data Source [id number] 02/10/2020 03:54:39 PM EDT [facility] SPECIMEN DESCRIPTION NON-SURG SOF T TISSUE SWAB RIGHT TOE WOUNDSPECIAL REQUESTS NONECULTURE RESULTS FEW PEPTOSTREPTOCOCCUS SPECIESREPORT STATUS FINAL 02/10/2020 Name Value Range Interpretation Code Description Data Tisha rce(s) Supporting Document(s) ID Date Data Source [id number] 02/09/2020 10:45:06 AM EDT [facility] SPECIMEN DESCRIPTION NON-SURG SOF T TISSUE SWAB RIGHT TOE WOUNDSPECIAL REQUESTS NONEGRAM STAIN FEW (<10/LPF) WHITE BLOOD CELLS MODERATE (5 TO 10/OIF) GRAM POSITIVE COCCICULTURE RESULTS NO GROWTHREPORT STATUS FINAL 02/09/2020 Name Value Range Interpretation Code Description Data Tisha rce(s) Supporting Document(s) ID Date Data Source [id number] 02/09/2020 10:22:00 AM EDT [facility] SPECIMEN DESCRIPTION NON-SURG SOF T TISSUE SWAB [...] rce(s) Supporting Document(s) ID Date Data Source [id number] 02/07/2020 08:42:59 AM EDT [facility] Name Value Range Interpretation Code Description Data Tisha rce(s) Supporting Document(s) POC NOVA GLU 238 mg/dL (70-99) H [facility] [place] PERFORMED BY [facility] ID Date Data Source [id number] 02/07/2020 07:56:24 AM EDT [facility] Name Value Range Interpretation Code Description Data Tisha rce(s) Supporting Document(s) SODIUM 139 mmol/L (136-145) [facility] POTASSIUM 4.7 mmol/L (3.6-5.2) [facility] CHLORIDE 103 mmol/L (100-108) [facility] CO2 26 mmol/L (22-31) [facility] ANION GAP 10 mmol/L (7-16) [facility] UREA NITROGEN 16 mg/dL (7-24) [facility] CREATININE 0.81 mg/dL (0.60-1.00) [facility] BUN/CREAT RATIO 19.8 RATIO (10.0-20.0) [facility] GLUCOSE 268 mg/dL (70-99) H [facility] CALCIUM 8.8 mg/dL (8.4-10.2) [facility] GFR >60 ml/min/1.73m2 (>59) [facility] GFR ( AMER) >60 ml/min/1.73m2 (>59) [facility] GFR INTERPRETATION [facility] --NORMAL KIDNEY FUNCTION OR MILD DISEASE - GFR >OR= 60CHRONIC KIDNEY DISEASE - GFR 15 - 59RENAL FAILURE - GFR <15 Est. GFR calculation based on the MDRDstudy equation, which assumes a steadystate for creatinine. Est. GFR should notbe used for medication dosing. ID Date Data Source [id number] 02/07/2020 07:32:09 AM EDT [facility] Name Value Range Interpretation Code Description Data Tisha rce(s) Supporting Document(s) WBC 9.1 10*3/uL (4.1-11.0) [facility] [place] RBC 4.29 10*6/uL (4.00-5.40) [facility] HGB 11.8 g/dL (12.0-16.0) L [facility] [place] HCT 36.0 % (36.0-47.0) [facility] [place] MCV 84.0 fL (80.0-95.0) [facility] MCH 27.4 pg (27.0-32.0) [facility] MCHC 32.6 g/dL (32.0-36.0) [facility] RDW 15.7 % (10.5-14.5) H [facility] [place] PLT 202 10*3/uL (150-450) [facility] MPV 8.7 fL (7.1-10.7) [facility] ID Date Data Source [id number] 02/06/2020 10:59:00 PM EDT [facility] ([facility]) Name Value Range Interpretation Code Description Data Tisha rce(s) Supporting Document(s) Laboratory test finding (navigational concept) Laboratory test result [facility] ([facility]) [address] [address]Glv# Surgical Pathology ReportAccession #:[id number](s) ReceivedA: Contents of femoral artery rightClinical Diagnosis and HistoryClaudication Diagnosiscontents Of Femoral Artery, Right: Atherosclerotic Plaque (Gross Diagnosis). Gross DescriptionReceived in formalin, the specimen is labeled "contents of femoral arteryright" consists of fragmented white-johnson calcified atherosclerotic plaquemeasuring approximately 3-4 cm in aggregate. No sections submitted. Agustin asencio. jglm/gmm Reported: 02/06/2020Electronically Signed Out By Serjio Sandhu M.D. [facility] [place] [address] 21320jnoDzomxjwld component performed at [facility], Histopathology, [address] [place] [address], [phone].Reported at [facility], [address] [place] [address], [address]. This report may includeimmunohistochemical or in-situ hybridization results. Testing wasdeveloped and the performance characteristics determined by [facility] as required by [employer] '88. The Fda hasdetermined that approval for specific use is not necessary for clinicaluse. The quality of Hematoxylin and Eosin stains and as applicable, forall im munohistochemical and/or special stains, including positive andnegative controls, were reviewed and considered appropriate.Icd codes I70.90CPT codesA: 69443B ID Date Data Source [id number] 02/06/2020 10:43:12 PM EDT [place] [address]Mhdwdgf Name: Tatianna MccarthyB: 1965Sex: FOrdering Provider: HAYLEE FLANNERYuthorizing Prov: HAYLEE Castro Provider: Procedure Performed: MRI LOW EXT NO JNT WO CONTRAST RIGHTExam Date: 02/06/2020 20:23MRN: [id number] Number: [id number] Class: INFORMATION: Exam: MR Right Lower Extremity [...] rce(s) Supporting Document(s) ID Date Data Source [id number] 02/06/2020 06:47:40 PM EDT [facility] [place] Name Value Range Interpretation Code Description Data Tisha rce(s) Supporting Document(s) POC NOVA GLU 294 mg/dL (70-99) H [facility] [place] PERFORMED BY [facility] CLIN[facility] STAFF ID Date Data Source [id number] 02/06/2020 02:32:52 PM EDT [facility] CenterPAT[facility] NT INFORMATIONPatient MRN Name Date of Age Gend*PT [id number] Tatianna Soto 1965 54 years F SDCPT Location Admission Date/Time Visit ID Attending Provider --- --- --- Saba Smith MD([id number]) EPI ID CSN Admitting Provider [id number] Saba Smith MD([id number]) [place] [address] OPERATIVE REPORT OPNAME: TATIANNA SOTO Gerda#: [id number] #: ADMISSION DATE:: 1965 SEX: F PT TYPE: H SURACCT #: [id number] CARE PHYSICIAN: OTM CORONADO-SURBEDATE OF OPERATION: 02/05/2020DATE AND TIME OF PROCEDURE:02/05/2020 at approximately 7:00 p.m.PREOPERATIVE DIAGNOSIS:Right lower extremity critical limb ischemia with rest pain.POSTPROCEDURAL DIAGNOSIS:Right lower extremity critical limb ischemia with rest pain in the settingof an acutely occluded right superficial femoral artery stent.ESTIMATED BLOOD LOSS:250 mL.SPECIMEN:Right common femoral artery contents for permanent pathology.LOGISTICS DIRECTOR:Cliff Alex PA-C.ANESTHESIA:General endotracheal.PROCEDURE IN DETAIL:The patient is [...] doubly looped the profunda distally and proximally. Yuo got control of the iliac artery and [...] bypass graft, thuscreating a PTFE to PTFE shghy-ve-zruuw anastomosis and this jump graft wasthen anastomosed [...] the dorsalis pedis artery.BETZY Borrego/CARMINE Job #: [id number] DOC #: [id number] Name Value Range Interpretation Code Description Data Tisha rce(s) Supporting Document(s) ID Date Data Source [id number] 02/06/2020 12:23:05 PM EDT [facility] Name Value Range Interpretation Code Description Data Tisha rce(s) Supporting Document(s) POC NOVA GLU 355 mg/dL (70-99) H [facility] [place] [facility] ID Date Data Source [id number] 02/06/2020 09:01:24 AM EDT [facility] Name Value Range Interpretation Code Description Data Tisha rce(s) Supporting Document(s) POC NOVA GLU 207 mg/dL (70-99) H [facility] [place] [facility] ID Date Data Source [id number] 02/06/2020 08:37:40 AM EDT [facility] Name Value Range Interpretation Code Description Data Tisha rce(s) Supporting Document(s) SODIUM 138 mmol/L (136-145) [facility] POTASSIUM 4.3 mmol/L (3.6-5.2) [facility] CHLORIDE 103 mmol/L (100-108) [facility] CO2 25 mmol/L (22-31) [facility] ANION GAP 10 mmol/L (7-16) [facility] UREA NITROGEN 17 mg/dL (7-24) [facility] CREATININE 0.81 mg/dL (0.60-1.00) [facility] BUN/CREAT RATIO 21.0 RATIO (10.0-20.0) H [facility] GLUCOSE 236 mg/dL (70-99) H [facility] CALCIUM 8.2 mg/dL (8.4-10.2) L [facility] GFR >60 ml/min/1.73m2 (>59) [facility] GFR ( AMER) >60 ml/min/1.73m2 (>59) [facility] GFR INTERPRETATION [facility] --NORMAL KIDNEY FUNCTION OR MILD DISEASE - GFR >OR= 60CHRONIC KIDNEY DISEASE - GFR 15 - 59RENAL FAILURE - GFR <15 Est. GFR calculation based on the MDRDstudy equation, which assumes a steadystate for creatinine. Est. GFR should notbe used for medication dosing. ID Date Data Source [id number] 02/06/2020 07:57:45 AM EDT [facility] Name Value Range Interpretation Code Description Data Tisha rce(s) Supporting Document(s) WBC 16.1 10*3/uL (4.1-11.0) H [facility] RBC 4.46 10*6/uL (4.00-5.40) [facility] HGB 12.2 g/dL (12.0-16.0) [facility] HCT 36.7 % (36.0-47.0) [facility] MCV 82.4 fL (80.0-95.0) [facility] MCH 27.3 pg (27.0-32.0) [facility] MCHC 33.2 g/dL (32.0-36.0) [facility] RDW 15.9 % (10.5-14.5) H [facility] PLT 241 10*3/uL (150-450) [facility] MPV 8.6 fL (7.1-10.7) [facility] ID Date Data Source [id number] 02/06/2020 01:31:00 AM EDT [facility] ([facility]) Name Value Range Interpretation Code Description Data Tisha rce(s) Supporting Document(s) Laboratory test finding (navigational concept) 50 [facility] ([facility]) Poc Source Laboratory test result [facility] ([facility]) Poc Temp Laboratory test result [facility] ([facility]) CP Bypass Laboratory test result [facility] ([facility]) Poc pH 7.50 [pH] 7.35-7.45 [facility] ([facility]) TEMPERATURE CORRECTED VALUE Poc Art O2 Sat 99 % 95-99 [facility] ([facility]) Poc pO2 122 83-108 [facility] ([facility]) TEMPERATURE CORRECTED VALUE Poc pCO2 29.4 32.0-48.0 [facility] ([facility]) TEMPERATURE CORRECTED VALUE Poc Base Excess 0 0-3 [facility] ([facility]) Poc Total Co2 24 23.0-32.0 [facility] ([facility]) PERFORMED BY [facility] Poc Hco3 22.9 21.0-29.0 [facility] ([facility]) Potassium [Moles/volume] in Serum or Plasma 3.6 3.6-5.2 [facility] ([facility]) Poc Ionized Calcium 4.3 4.6-5.3 [facility] ([facility]) Poc Hematocrit 37 % 36.0-47.0 [facility] ([facility]) Sodium [Moles/volume] in Serum or Plasma 136 136-145 [facility] ([facility]) Poc Glucose (iStat) 181 70-99 [facility] ([facility] [facility]) Trade Sales Assistant who read Cyto stain of Cervical or vaginal smear or scraping Laboratory test result [facility] ([facility]) ID Date Data Source [id number] 02/06/2020 12:12:04 AM EDT [facility] Name Value Range Interpretation Code Description Data Tisha rce(s) Supporting Document(s) POC NOVA GLU 202 mg/dL (70-99) H [facility] DONNA PERFORMED BY [facility] CLINICAL STAFF ID Date Data Source [id number] 02/05/2020 09:31:35 PM EDT [facility] Name Value Range Interpretation Code Description Data Tisha rce(s) Supporting Document(s) POC TEMPERATURE [facility] 36.0C POC SOURCE [facility] POC FIO2 50 [facility] CP BYPASS [facility] POC PH 7.50 pH (7.35-7.45) H [facility] TEMPERATURE CORRECTED VALUE POC PCO2 29.4 MMHG (32.0-48.0) L [facility] TEMPERATURE CORRECTED VALUE POC PO2 122 MMHG (83-108) H [facility] TEMPERATURE CORRECTED VALUE POC SAT O2 99 % (95-99) [facility] POC BASE EXCESS 0 MMOL/L (0-3) [facility] POC HCO3 22.9 MMOL/L (21.0-29.0) [facility] POC TOTAL CO2 24 MMOL/L (23.0-32.0) [facility] POC HCT 37 % (36.0-47.0) [facility] POC SODIUM 136 MMOL/L (136-145) [facility] POC POTASSIUM 3.6 MMOL/L (3.6-5.2) [facility] POC IONIZED CALCIUM 4.3 MG/DL (4.6-5.3) L [facility] POC GLU 181 MG/DL (70-99) H [facility] PER[facility] ID Date Data Source [id number] 02/05/2020 08:22:50 PM EDT [facility] NT INFORMATIONPatient MRN Name Date of Age Gend*PT [id number] Tatianna Soto 1965 54 years F IPPT Location Admission Date/Time Visit ID Attending Provider --- --- --- --- EPI ID CSN Admitting Provider [id number] ---AirwayPatient location during procedure: ORUrgency: electiveDifficult airway: [...] to lips: 21 cmPlacement verified by: + [id number] view: grade I - full view of glottis Name Value Range Interpretation Code Description Data Tisha rce(s) Supporting Document(s) ID Date Data Source [id number] 02/05/2020 08:01:43 PM EDT [facility] INFORMATIONPatient MRN Name Date of Age Gend*PT [id number] Tatianna Soto 1965 54 years F IPPT Location Admission Date/Time Visit ID Attending Provider --- --- --- --- EPI ID CSN Admitting Provider [id number] ---Arterial Line PlacementPatient location during procedure: ORIndications [...] rce(s) Supporting Document(s) ID Date Data Source [id number] 02/05/2020 07:31:58 PM EDT [facility] Name Value Range Interpretation Code Description Data Tisha rce(s) Supporting Document(s) POC NOVA GLU 182 mg/dL (70-99) H [facility] [place] THOMPSON PERFORMED BY [facility] CLINICAL STAFF ID Date Data Source [id number] 02/05/2020 08:08:00 PM EDT [facility] Name Value Range Interpretation Code Description Data Tisha rce(s) Supporting Document(s) POC NOVA GLU 188 mg/dL (70-99) H [facility] [place] TH[place] PERFORMED BY [facility] CLIN[facility] STA[facility] ID Date Data Source [id number] 02/05/2020 05:57:58 PM EDT [facility] Name Value Range Interpretation Code Description Data Tisha rce(s) Supporting Document(s) APTT 97.7 s (22.0-34.3) HH [facility] [place] ALERTED CRITICAL RESULT TONICHOLAS (4300 220)/D4 EXT 93965 AT 1756 ON 02/05/20 [place] [id number] ID Date Data Source [id number] 02/05/2020 02:45:00 PM EDT [facility] Name Value Range Interpretation Code Description Data Tisha rce(s) Supporting Document(s) SARS coronavirus 2 RNA [Presence] in Res piratory specimen by CHLOE with probe detection [facility] This lab was reported by [facility] ID Date Data Source [id number] 02/05/2020 11:35:50 PM EDT [facility] Name Value Range Interpretation Code Description Data Tisha rce(s) Supporting Document(s) SPECIMEN DESCRIPTION [facility] [place] COVID19 RESULT (NDET) [facility] QUINTEROS THIS ASSAY AMPLIFIES AND DETECTSTHE TARG ET RNA USING REAL-TIME PCR.NEGATIVE 2019_NCOV RT-PCR RESULTS DONOT PRECLUDE 2019_NCOV INFECTION ANDSHOULD NOT BE USED THE SOLE BASISFOR PATIENT MANAGEMENT DECISIONS. COMMENT [facility] [place] UNDER AN EMERGENCY USE AUTHORIZATION(EUA ) FOR THE DETECTION AND/OR DIAGNOSISOF THE VIRUS THAT CAUSES COVID-19.RESULTS EMAILED TO [facility] IC AT 2774. [id number] 20864. FIRST TEST [facility] [place] EMPLOYED IN HLTHCARE [facility] [place] SYMPTOMATIC [facility] [place] DATE OF SYMPT ONSET [facility] [place] HOSPITALIZED [facility] [place] [facility] [place] CONGREGATE CARE SET [facility] [place] [facility] [place] ID Date Data Source [id number] 02/05/2020 01:49:52 PM EDT [facility] [place] Name Value Range Interpretation Code Description Data Tisha rce(s) Supporting Document(s) POC NOVA GLU 234 mg/dL (70-99) H [facility] [place] TH[place] PERFORMED BY [facility] CLINICAL STAFF ID Date Data Source [id number] 02/05/2020 12:56:40 PM EDT [facility] NT INFORMATIONPatient MRN Name Date of Age Gend*PT [id number] Tatianna Soto 1965 54 years F IPPT Location Admission Date/Time Visit ID Attending [id number] 02/05/20 0417 --- Dain Sanford MD([id number]) EPI ID CSN Admitting Provider [id number] Dain Sanford MD([id number]) Attestation signed by Dain Sanford MD at [...] H&P Note Tatianna Soto Admission Date: 02/05/2020MRN: [id number]: 1965 54 yearsPrimary Care Provider: Sharona COE Physician: Dain Sanford MD Informant:Pt and chart. Both reliableCC:Right foot pain HPI:54 yr old female with medical hx significant for obesity, CAD (quintaplebypass), DM2, COPD (heavy smoker), PVD with claudication. [facility] of [facility] right foot and [...] VEIN HARVEST; Surgeon: Saba Smith MD; Location: [facility]; Service: Cardiac/Open Heart; Laterality: N/A; FOOT SURGERY GASTROSTOMY W/ FEEDING TUBE 2015 LEG SURGERY PEG W/TRACHEOSTOMY PLACEMENT went into [...] Take 80 mg by mouth daily 02/04/2020 [id number] ASPIRIN ADULT 325 MG tablet Take 325 [...] admittedto Dain Sanford MD1. Chart reviewed from [facility]2. Pain control: PO and IV offered3. PVD ischemic right RLE: [place]. Will resumeheparin gtt as well as aspirin/plavix. CTA with run off pending.4. DM2: ADA diet, insulin scale. Glucose monitor protocol5. CAD: will make CT surgery aware that she is here. Will get cardiologyconsult. Sees Dr Millan in [place]. Has been consulted by Dr Gagnon group inthe past. Most recent echo from June with EF 45-50%.6. Tobacco abuse: 20-40 per day. Smoking cessation encouraged. On wellbutrin7. Antiemetics prn8. DVT prophylaxis: US in [facility] neg for DVT: continue heparin gtt9. Disposition: Will await results from CTA to determine her inpatient plan.Discussed with Dain Sanford MD. Signature: JALIL Astudilloate: February 05, 2020Time: 5:50 AM Name Value Range Interpretation Code Description Data Tisha rce(s) Supporting Document(s) ID Date Data Source [id number] 02/05/2020 12:16:46 PM EDT [address] [id number] Name: TATIANNA MCGINNIS: 1965Sex: FOrdering Provider: EMIL Caruso Prov: EMIL Felix Provider: Procedure Performed: CT ANGIOGRAM ABDOMINAL AORTA AND BILATERAL RUNOFFExam Date: 02/05/2020 09:25MRN: [id number] Number: [id number] Class: InpatientAccount #: [id number] for Exam: Arterial embolism, lower extremityTechnique: Helical [...] MOSHE WREN On 02/05/2020 12:16 PMWorkstation ID: [id number] Name Value Range Interpretation Code Description Data Tisha rce(s) Supporting Document(s) ID Date Data Source [id number] 02/05/2020 12:03:00 PM EDT [facility] ([facility]) Name Value Range Interpretation Code Description Data Tisha rce(s) Supporting Document(s) Sodium [Moles/volume] in Serum or Plasma 137 mmol/L 136-145 [facility] ([facility]) Potassium [Moles/volume] in Serum or Plasma 4.0 mmol/L 3.6-5.2 [facility] ([facility]) Chloride [Moles/volume] in Serum or Plasma 103 mmol/L 100-108 [facility] ([facility]) Carbon dioxide, total [Moles/volume] in Serum or Plasma 25 mmol/L 22 -31 [facility] ([facility]) Anion gap in Serum or Plasma 9 mmol/L 7-16 [facility] ([facility]) Creatinine [Mass/volume] in Serum or Plasma 1.27 mg/dL 0.60-1.00 [facility] ([facility]) Urea nitrogen [Mass/volume] in Serum or Plasma 29 mg/dL 7-24 [facility] ([facility]) Glucose [Mass/volume] in Serum or Plasma 274 mg/dL 70-99 [facility] ([facility]) Urea nitrogen/Creatinine [Mass Ratio] in Serum or Plasma 22.8 1 0.0-20.0 [facility] ([facility]) Calcium [Mass/volume] in Serum or Plasma 9.1 mg/dL 8.4-10.2 [facility] ([facility]) Globulin [Mass/volume] in Urine by Electrophoresis 3.9 g/dL 2.7-4.3 [facility] ([facility]) Albumin [Mass/volume] in Synovial fluid 3.3 g/dL 3.5-4.6 [facility] ([facility]) Protein [Mass/volume] in Synovial fluid 7.2 g/dL 6.4-8.2 [facility] ([facility]) Alb/Glob ratio 0.8 [facility] ([facility]) Bilirubin direct and total panel [Mass/volume] - Serum or Pl asma 0.3 mg/dL 0.0-1.0 [facility] ([facility] ) PLEASE NOTE: Total bilirubin results may be falsely elevated in patients taking Eltrombopag. Alkaline phosphatase [Enzymatic activity/volume] in Serum or Plasma 162 U/L 45-117 [facility] ([facility] ) Glomerular filtration rate/1.73 sq M pre dicted among non-blacks [Volume Rate/Area] in Serum or Plasma by Creatinine-based formula (MDRD) 44 [facility] ([facility]) Alanine aminotransferase [Enzymatic activity/volume] in Seru m or Plasma 15 U/L 12-78 [facility] ([facility] ) Aspartate aminotransferase [Enzymatic activity/volume] in Serum or Plasma 13 U/L 11-39 [facility] ([facility]) Glomerular filtration rate/1.73 sq M pre dicted among blacks [Volume Rate/Area] in Serum or Plasma by Creatinine-based formula (MDRD) 53 [facility] ([facility]) Glomerular filtration rate/1.73 sq M pre dicted among non-blacks [Volume Rate/Area] in Serum or Plasma by Creatinine-based formula (MDRD) Laboratory test result [facility] ([facility]) -- NORMAL KIDNEY FUNCTION OR MILD DISEASE - GFR >OR= 60 CHRONIC KIDNEY DISEASE - GFR 15 - 59 RENAL FAILURE - GFR <15 Est. GFR calculation based on the MDRD study equation, which assumes a steady state for creatinine. Est. GFR should not be used for medication dosing. ID Date Data Source [id number] 02/05/2020 10:50:35 AM EDT [address] [id number] Name: TATIANNA MCCARTHYB: 1965Sex: FOrdering Provider: LIBORIO Brower Prov: LIBORIO CLAYReferrregine Provider: Procedure Performed: XR CHEST PORTABLEExam Date: 02/05/2020 10:47MRN: [id number] Number: [id number] Class: InpatientAccount #: [id number] for Exam: heart failureTechnique: AP portable view obtained.Comparison: 01/05/2016Findings: Mediastinal structures are unremarkable. There is no pleural disease. The lungs are clear.IMPRESSION: No active disease.Report electronically signed by: ASHWIN BEACH On 02/05/2020 10:50 AMWorkstation ID: [id number] Name Value Range Interpretation Code Description Data Tisha rce(s) Supporting Document(s) ID Date Data Source [id number] 02/05/2020 10:13:22 AM EDT [facility]PAT[facility] NT INFORMATIONPatient MRN Name Date of Age Gend*PT [id number] Tatianna Soto 1965 54 years F IPPT Location Admission Date/Time Visit ID Attending ProviderD-[id number] 02/05/20 0417 --- Dain Sanford MD([id number]) EPI ID CSN Admitting Provider [id number] Dain Sanford MD([id number])CARDIOLOGY CONSULTATIONName: Tatianna Soto Gender: femaleDate of : 1965 Age: 54 yearsDate/Time of Admit: 02/05/2020 4:17 AM Code Status: Full CodePrimary Care Provider / Referring Physician: LEIGH COEnformant:HISTORYCHIEF COMPLAINT: No chief complaint on file.HPI:This patient is a 54 years female who was transferred here from [facility] earlier today. She was experiencing acute right foot and calf pain.The patient has a history of diabetes and peripheral neuropathy.She has a history of coronary artery disease with CABG x5 performed here [id number].Her prehospital medications include Lipitor, aspirin, Plavix, Prinivil, [...] VEIN HARVEST; Surgeon: Saba Smith MD; Location: [facility]; Service: Cardiac/Open Heart; Laterality: N/A; FOOT SURGERY [...] file Gets together: Not on file Attends alevism service: Not on file Active member of [...] Take 80 mg by mouth daily 02/04/2020 [id number] ASPIRIN ADULT 325 MG tablet Take 325 [...] for the ORThank you for this consultation.Liborio Bela, MDDate: February 05, 2020Time: 9:35 AM Name Value Range Interpretation Code Description Data Tisha rce(s) Supporting Document(s) ID Date Data Source [id number] 02/05/2020 10:10:[address] [facility] Name Value Range Interpretation Code Description Data Tisha rce(s) Supporting Document(s) EKG [facility] QGIABg9sXuFCLpTyk4PfLwHyFMOtND5nfzc2W2T6wSTnI7LvjHTla6qrD6WiY0AuNWXfRZMQLA6KfQLv jb2 [file] STILL PHOTOGRAPHER+vHHnB8ygbYvFAmTFXfZ+Ok08VgXx9KHhjEZLBzngM4OcHBjq3QjGR+M3/ThiWeIBU/MQW6C+RM8 rJ2u1SAo9uMP0tBWcnfOncFzhUUKHbCsSDhAL55GAY APbKE6wy3bsBdO8nIUnvvMQ/Ok8IqauNc3fxewhzYycHWam7793nwTQN2FiNy8+BW71unAoWHf43UPR7 atHldHKSf17UwUJxlOJc4bQlzN3zdENLMcSQiq5phgKAHdkdv91VRRbHVIybuguLIOrkD9RtolF2E1vf 64zwPXL3Ew5Hqc0cVPQEZjkJFIqN/0vstaU95RDnci YdS602667JTUPElnbunm0DS1GruEgwv4PAZibVImTqhCqX6wB0tI3LccY7xzchU5aVgCEL2rlpyM62Co bIc+RFZooynC81Arxry7MCY+YjhDz8Q5PHP46MwWQ+8X+kYMpW/EUPpWIkoEcaS+YP7PM2YyBzw180QP E2p3IIJspZAI++Q52BlYhl8NLFmrkzVYNO2Gw4MnAH Kn4NQROdCwlRi2WWpbrsw5YdSrzPoVHUrp6wME8vWNHFb35zi7PPVScoOKAUgB79bY6lUbrXQUUMisXV MDAvNXZeJZG3WIejwhM0guGlrOeTT6WE7U1RwIlZCE8AVZ7sdAMIIZcPKNjHyRtBZJW0GM8EiDVUZsfh TdUfpAEVceirkwkicmMhoF/KXXlFJ42BquJ/SIENA/kZ yNIvTLPipaYCDq5lUYgZuBwnFTmXUyFNNRFygxuh3KuskP9622q2qzx7xC1qLYX16hIDN8TdlRiI0hF+ yKUxeV2ZrbNtTUc7jAthM44wB6XaMQ36WukTL9MVde4TpkyTwGmOV3rXkFpjABFl4FV2JQuXSGazM0By Xz1zx4oBSiLlj7YpKCoTwQKbQgPWAWbZF7NHorXYNI iDjCcmMqhDHxjHgeXeOdqJcfAIrI0+RA5LM86RWFIa1BH8U2ADK3jepPL9WlsaZyyGVxn23InTmskD2E YklSdJZf9EeAgVjG1eluHlD9JiHeGmTXqChtUlypw6mkWjvpDFTZVprb9Y5z4aljUkf4odnGGc+mDSB5 M+rRlGmZAygF6JqeuSokh9BTbFDfoL7BhMEJ9BtqWT BMzMCWawSWlRXLdo8iXTGld4Se32GTTdo35ZPDJfpDtXcgZhGWSu38dDmzRzIU52ivKCqSiA0FGnZmJC VIeyoMUzphlTDi7II/N9FzikjmUjcrZ1e9ctaWQbUYMqiwXKJT7B5euu9DtkVRS3OYKFR8wa1P9w7GcY PToPC2rtFuVZyPJ1qDSjMhzP8hoQsQbtnboGGyHUbT 77Z4xiIIyJdwcumKJw+/BZY9mkNoW1wHOCJES7XpJF6EiYGe71azKSHbAYeAqYPPVeLpdr8BCHEyUciS CubLKpg/nJojNA9mz26hxhLgcJ1qVaiZSP3wn7wjnVSw0cA6nhrH4q9gh7xoqexDtqAIagZiC3lQYHoj nPRC1fNqpgH0jt/XNDKFoxuHm3LV+hLOkMz9GMZcCb hyf+YJSimIXn5hCGYZ2UGMO9EDU1/wg/SMZWpFZ5zvXrQV1yrtvoERG3TBAjGE/9yQGpbGhElQPvCH58 c4EfsBJ36Bp4QS71j1wZ+CER+bHgiRZmDyES+0FZLbOCBOc6f9HGPwIAhPOmEjdFeuqLSMR1nHKdbmVm lrFnrjqPDaldwkF6crGbjJcaaZf8tndcjxnecV+[place] [file] admitting coordinator/seRG9mHu62JAflyoXr3t51wzpB7T9fheLIXf3JxcAtUCNzZWhrS+8guPlTi7Pl4w1CAJwKYELHt8 [file] X4z//953/8n/E///corporate real estate specialist//vnf//aDmYf3C7//xVPXAL0 /9e/4oVLhzv+fZ7irnUDMQk18fCKPaVPgXIetw+MC8NHrU5wyx4fQoA5Mo7alfI9B8s/kr4Jsy2Kp/6O 6O+azWgA86A115it9QF0WskDKfzU/lY4+imTZSCp9bXew+eOgZ99mRwfrgj/0/yFRH/sYQJ4FppF8n+V aaK/abVBor+syprDXzg7upKxrwhRD3Lu/MjweOPTbM YLCr+vTC7wtUpHbausePU21k0yf5iCm/Lf7Bu6hBaK/p6yMsyZJ8eufIg0VrT+v/Rx3hbux6jFQ+VU+I 2f6fQa/U9U75iJnw6+Xp73AtuFCttErIhmwsM4itR1p9Y2D3okVsv+4y2+17L+jiu/g7rc6J2Cy/c4Wb nV53ida2WmOZtm48Ff+vpeOoHA71R55xM/4Jyve6pq BXu/draw off worker//k9jvwAWcd71Yj3g543i1HW0Qcq8Z2992OEn2/5+ZoWw4q8nF97j5sN+yklngRa1VmuF2vtO 5dJzy1Bkc7KNcY/+ZpkmKGeiHPTXFtKvbr+bt8Ak73m7Um5q72rrCK5atJy4Q+kPykF/WhlmMR3an+Jx 8MsIo1k/Nff0NJCQdu/xj5bDs15/VHAonQQrHK401n 9JA9Hv/B05/l/s1nriyIWo+TtznL/I7fdfU/atf/E/KBbhd/8v5lfOA74U/05txhmL7c/+POsOw9gSsV ey/cPG7Azkie/CHRl+p6580MSqr//QCr/yoOBBB30WLibcPI2//bmWS//34ejH3kvt/eZqpnm/7w2/39 eO1KER01vvd88K4h47MEab7+a3h5jYdChR/ny/r1cb Tn+AnTr5PCkl1/U8HRKTm7D5IdJ6vdouuY9s4ft/C/YA3zgZDKWB2DPSf5/P4ygf4/isAyvf2Rgcrz9M fibihGcRB8Jjm6eE4NZSv6Wr5hxBM9DhrcPiJ7A+uhTxinhD+LB0NzyxM+5AdcvJQ7cE+eJPtyfwVZU/ 0N8xEI/+JnE85KL3EbHKuw/xIOS2J/RBQj6QS/09mT k1N3vO1JmxFznq2eavFjwmwc/HI65zOlpqlRol+Chi9xIl9B1NcSBt5sPjYBwkLP7lHsVAsP12MAntzl sJdLM9Up3E34u8fO/E72+kiYKDI1raow923hb0gXQA6c612rcfKyKH8/r1Qag8KWBlr0WzoN6uHgMtPM 9Ij/5OR/qNehs/x+uO+73maTmv/l+Akk852aeTI91H 4qtKg/8l3Pid4oeHh+uaHLr1ug7JO9VkcsrVs6N8DsVJ4JiGjuLngW8oIotXKFCs2kSL0V3zoiDMpI1l 1ReOeq/+GeFuT+CrarPi+wa+qe9Telau9j/WGwqosU97CN64rot61NG78/gc3eiV4vik61lzCSgr9Ytr 8X2t/4/iucYXnoifiI/+2tPHXd4Mgfkj+uHeeKfxxR xMP2a43YVn8TxUubFj+EeEO92wakmjxzu/YDzO+NKjv47+Ovqb+BpflljvE1mNhCyQB0nZuT79///Gg4 os53x4EpoXjbk+++l6d//fl0lDZ74RyghtvgDhUp/dcNcb+OoLd/h7ctg3Wp8xTpw48u/taCf6u/F9A1 /r6aJ5Oh8/C94orwwC7zozME+cYtq20VfGf/3oLKTH 6h8y90L3LIY1v3jckSkA16frxp8LmqT3rX8s0hh5+LohWzy9pPCZ1FG25w72imsQ4g67ZwPJjd+KhxW1 OxX2fbnm84nCnoHjrfD+wrTILx6bj5Ht8dArr/l4UVH/5zFcmxMW0N1drl+n04/xIIz4/t+LefThE5sZ FF+Z8/sPincU+dDdy2eZuDlBBtWce5hHCEGUgMuJk8 iBzxvDR86CJZI71gF+pv4sctaia/eoMPomY7X8F3xUytoGwRrQc5dS+ZjS4634jvpzrgfvttc+wFdTen 1u7qmrtYru4IyXUQvnagpSGj69Fc8FGEiXmzK3euNsSKu3/YpTJ2b8R0jbQe/8QPxAfP/adbZRN72V+o n4wM+zwnr/lkI5MFi8/rxW06fgsBHC7R141h7hX/qb 8hBz4M6F/fgOs01BI1Xq8TGdUACnd+td/b8fzyG+bqmSH2UdeC/+Heq3EDi6Id9g9yGpuW+Ij/7mOA98 5bvC+oVAniMrWLe54y+ynam/WhX+/gvy9xgzt6a5wzt0dX+QiQqq9bk90oIFf0VY2RxjaAbTb954MY8o /RPe4754hhjKlGuGmlY3rr/6I0DhqMxqs9o0Mjs04b h9eTUs15vspl3054cQ06jFa2NrLGo3ZelS+qtsf+No0WCQN7dfwtftn+V2IvxthEKfgFTCjr/wVbU/8J VVXaHfyHkX+MpSnoGvUncRzxt+9tUbbx7zzMu/F+ivJvRXs/KZCrnjip7Wa40m7Di+8tb78Lo/pb/K+P 4lozeDH8v1umFz63fBAQ+7Mx6egYcC0ayPJ/kfHQ8Z vjS7++Xob+Cr+l5+en3brd+LHkp8bL3/+/MQ0z2Rfq5qqmP8T+sx5rpDJ7Ok6jIr52Tuu5YP1Gc29dt/ B28565NBA/Zuduk1we9Di2Dxwkrus+4Rp//3Z+qvKs1E/Gj6LwOKISuiDqbOYf7G4MBhPV76tmCufyTW lWYj/iC+/xfW0/+/45f9aN3Puirbi/PV8lb0KBH2QQ +DdeDiopum5MEPQB4qrg+PVuKrinfE5//dsgF5mhP2zi2KiS2DmwZ8HWJw+LTvUo4zPVrBtzjFkEAIo6 B+BY57DGu27Uc1/8LC+jTislEdcG7f46V1f+MF/T66wRU9AxBVIcNx+TpXeT5ede9lj0OrJ2FSF/2NPX Xotqyui9E/qpMplGzaJul18d1e/kK43vlH7v5ip4ri v8r2p/1fjsi1yt/QWwf0Tz0H8ZG20BwZodmu/BZTEY/vW/xvWnH7Ik8I23o6ail9qmx/tdwJ2cN4Hnvu 5S+M59X/v2th/q7+N2mpf7qautK/51N3nLqsyjK/MvYmfdRCY3daxL6xv3E57Ik9+c8B1pcuAC59PF7m Utfn4V8AsQy/tf/3l/b6vLT/l4sdaLYE+Zi/6ohHfx L65A51M/Sus6Y1rgJqZTN8lZqlyo4unv5u0uolrPa/ci8xxaxTsM+PM3LgqTLWOvfr7KaB9M3Jsn6h5X cjd5v7M6hecq20J5mS2eO0Sp91aH+O/rnnes23TsgPYmhOW+PaY5b3686Z/dXyg/Pq92yVQ80SIg7QLr +hv1ob/d3Yf1N/lf1K/VWuLam/zrHn0Oo4My1+318b 89Xdn52Hp/sGcdu/w9/8blsrQ2mr3ux/A36xcLk+PG0mYvY5uxth5hfUcI7uZFWvx59jYz8o9UR4k/47 4n7/lybPfzM+6Zqs94U9NVH71SAB3/lziVA6046k2V8fxOJY+Zn4xHKOlQpf8toAw3/iKhGduZx216y3 8a0TlQa931Y8MZV+0qf1z/w3nxCLr79Yed3r8rfwyr 1q38YcM+rV14E45X2Ipkdr9biaiJpbOl/VPB/M+RQ5KC4f50PezI5DLuD+//crrPffX/M0uIJJ8sB+Q4 X81lhqPwSF9qeyR9mpzK+IR3+s8XlyYa+oRgTWMm0J6/S/tQPIPwEf3iy+RlzR/0hEb8FAOtZ4jyl+r6 LS+g2V1m+jtWQ7epqTd8qk0E0SY6/BvVi8i7M6rj1x ERlG5Pw/CWBm+BzoQu09p/UqMBaN14C1yj6izYrx0ilcsqpw7/c2YVnwIf5xYDYaubnAwNNzL+n9u18R F/Ogxedyinqs77m06C906z8tGLDggFEhan2jsWEmxvJRvF9tOpiq8oK+fwt8Q1RqeXys7fN25cENv/e/ zSfLj/sbuVak/huipeiwgNkxs0s3/t/Xhfmb+qtT4Z 7vq8+7dfX/pe8Heon7S0YS90KoJ7K4KMreUfhqoh+qwhPp+41dsxN98N+F+39fVZHeEG+Ef4FctK/6qx vx+R2e158N+q7Q2k3lVOM4p6MzhRvw+/xI8/5Vxc+Wf96/umHE9/++4nxQ8/6FlMUql0A40HfVu0VImQ Du+Lkv7Xg6uC824a9n0+yw42IXOyZWj6U/DTOpI65b Jgm6g6T27OlyjaXN1X90/f+k4u5Z0kkzM/D0x6Dv63Rz/YYCXynwlSa+qryCcibi+3xfd+NJ3f2/r4mv lduqjkdQCn2wDR52O6E9+osW249+5vlgps/zwRtGfP/v6+sgbB36so+n/0253Km3qZJzjHwgegnxJcRt onTbT6F7W+PqVudxdEx1vviH3U1aXLDLhxCH0grd1M 8fXrPf13PqK02BRb1AR/CFFeMK/BdWxCvSG+YE8r5Hg7hgTsP9oG2j8Oak8b/sY+epdzXYJp2kdee/Cn bx3t9Ybbf5wktT72eUcG2Ewq6qhOWuSLu/67qil0i9kyMS0M5vKG7m91M9L+uEW59z2YzSUq1qOyb/31 J/FePfZCBeEC+Vgqye7LXeNG4GXfQ2/DVRpDfEG+Id 5I48riF83n/LB/evbLa+zur+YIZba1Vv5IG2+3/QZv/vG+5fWeqvKrxaPnOhfPQX+emfkg9st+8j2UR/ cf/KZv/vG+7rVzlgin2s3+i6Fxu2pwzerg0bdy+foE8n1Yh8oU3pk69XcBG+Vkez5m1CSSumB5i3aqhH div4Yxj4Y/1Waa7sFjr8SMSU8g7/AsM3XQfh0Q4W+3 /IHX9Y4D4hPU/6DVNFvCG+7MfjmuW3akzq+gv9lUF/Nyu3eiy+r2H+EnGy6t4nOBY+mbbp19Mbq+I/2l J/cHfqhC52rL28XGxmPsv+3hyJ2DJ60e+Y+YXn6axWq2QkGz4D5onrg5k/XY4/h09AeLl1GgpG7o0KWN Qbmmnk+x8xb/2G+GH3n5pc0R+567yH2rbTb7a+wxJf 5X7hrd/4/9wcZvGWpB9w93HME8TsFxVaEfpGGYXzPUdcydirigapqs1DIWSWArHOXW8r+B+wbrX7te+w 3G4myt2slY6bdoh0vmV2SZB6Tv1d0D2mE21cXI4C+71FzL9Vjt4eqjGWq/IMwmk38TF+aDgfNJwPWgTy +ivSvb22yso+vQpzx1j7ndhchQmT+aApn25zxMe+7Z Vu/3ZL//acG+osZjAWabvvHADj7Mp/FUv/9ioTyEd/4d/u6d+ulUZ+n/96+wyZHEhn1H/76/Bv92+ifJ 93e/p1XbuMf3Z/w0+6/Tf86/s4/jna0/tf/3q98q/8I000vhBCp+/o7NP9+F+NLHP8r+R6l583q9VErk //1cq6P/3qbIhP+mevON+gH/+qi2EQ6Em76ot/ao/M /32/1c7jf+Ul//tbARox3Ip1+F+N7Mvo/ZEf/Hx8StthM2E9+gG9tLCFZvpJe/bj38Fy5TwgqpSpkzn4 Kz/flx/7Md3UaqQsshzfj2R/2j37Jr2dOsy+qmx5VuIp31/D/8rhf+ViKO+Q0/PZJZDf5/xlyb052eP3 n32+93JB831E1P/g843qghK/ywdlpa59q88g7WO4he /12ftfT/0rt4Q04lj4fBz5s/hHwQm8lj5+X/DV5wu+2h/JK45pNigbiMwcKbp2mbKtIe0P/EC0SS01n2 DfZSiP+tbvjr5nk/gtKZUpC15ZQu3CEElocB54jshm078F+YLy6C/0K4d/q1t58pv2424HZ6P6Ex9J1t HvKN/+/D48P5IfTT/7I0/96qZbfulXmT+QLyjf/pNu vR906/2+5/qzRfq27a5yKzx1we34Vl/tkHtOzIma887Lg8Ze2HzwmMnDjtfbd//bnN9Tb0Z7/tfzfLDS 8vQZ9/rx2uzdhYuE0zhkE/UJ2nZ1ogLQYy+fXurn/cDaKz3wO2iV2kb+DP9GYS0m221+3B/MszM/9wdT 9/Fju9KAa/aQNw1GY/Vzf/YNz62n3BnrHBdk5Ibqa9 rhbniR0A6FdeGSyJ/+Djl0MRv+4Wm/qoDcw39s+sYIZb6YGT/RgzSN7gl747/Y681F5DF5WYeXp4m/qj TmM+xXDvuV1/eryzhHS5zSKF/0k8agrnC5Sxdf0TSObhNY9y2uL9h+MTfbe9f3N8qxK+X16zKK/LbXxd f7/Uj/qyrjkB/GK2jGwM7jTq0QmU/gHctYs0bZ6CIU CXY6NS3yonD+SxE1PAo2W/fwGSmCdc6wIICx5mqPt96mYeNYR79V7/3FEqsThV7xcNtnwJ2kbtyrYFN7 fD+k7c8hC+TQ2QoUjWfE6R/p/0GDa0sflLzwOpMg6K6N+n8UE/2F/1XA/ypm7/mm2k7cZxltsDw/kd/2 55gLcvB+J+hhoTcinQ9W13nqtcRuMlFi/KZm/49i9v 8oUr+KSr/1KjI+w1nDY/X6HEve+xsLIrvLOVFEe3g51sbhD1o7ne93yLF+j3ZOaYpecIR6Cr+fPSGWP3 +MEFA4kIWZ/2ubjk8FY5gXGgncp1tOua/O9Q2AM09ao0m9rkn6/b3plp/+3xvV2d1NEO/2/NeErvcfjO Pfnv/TOP7t+L3FsZ8hLNNq/1GoI7/q8YM49i13lg9P qgQByF2Mpc4u+2RY+0+W5uv99wjB1f8coW52dihuR39XX+S3/dp8E5f6AlipovQDcWPOhDPf0cpczB/z rpExF7R0zTDnIaeq/s/hvT8K7/BkyKio2RojbLJ/Ib/3g+RR1hgb8N77yWU69p7mUl83x7F202dqZpJ/ /jewxd0y82LR5T/9iYdCm0dGDLLHbPp3e9Fbt7jn1n v+HDgfjDwfzHUG+kSvdbTa6GEnHj2T82+VdzHi+F/N/Ecc/5iU04has3zGx+N/pTn/j/+HFi15kO2f+F 9V34//7M9opRH/1MOlAdyh12bkDeh/alX69/3OvlqfAyP2n7u2ShKGkkA7VeeNf9v4rBfP45AIa6355D eRSv/gx8k6a44S/hT95BiPpbS/9mfYX7/fjfuDG/7t ++v/4413ujZ2/2h/dN4qvr1f7U/7T+7PIL/Pu/fX+9/9OfIDctq/fX8b+e0/uUfvf/fe90Y5zd+7Ef9q Z0E34Nlsw9Q0aO56Z2ra4Rt42Y1LoLPdRx29cI/77Bv+0UnT8vA+gb9z8PJxQejpuswwclfgm9b314yq tdMT+RP5eL/UhavMWsnWK8w7buqC/dvptp2CT/1kS+ qbLeP4R4/dTz/Zs+9LbvhfbehXG/7tO/Lcp3ax8U8s9siJLd0zauY8A+UV+oi8hSp3+cKe7T+5U7+6ae AV2yG9K/m9H9wV/0izOril7/u1ZrBHfbwhE4fHxN6h9+dHO/Wrm0Z+0ok0pe2qE9/Pe/X+d6d+VfLR39 NzPwj0u4495w88e48ZldE6ha0O+QC97Dvtr7HqmeVX ky18zcc8KsB8rro5nf590ykFH/Jbn9zn/wUdwAdkV4rpiU/7j4em3eI/sMqc+4OpZ+40V3vhgleAQ7aO i+H02eQ4wuo1gMyi3q+0VzRn2lZx2bt2rgz14KtYCnp/zym2xfe2rg/ztvZ/9jz6xG74b8u43+/eeT6Y 31jkx674TMjkG8ksb/V1DZpV6/52xkFN1wLpHUxT6+ W6sphddpg/fhykuA8i5/vdO3p/xYH9JYKY0X/ko7+B/qZ+VeXx/zw78F5mV3QE/sK/yErEt5Q/A/0N9B e3cr589N3DW8q78wzRw/iQvxOG2xJHsyEia/eV/k53uyaB/KSnJc8E//bKR3/l613j9102+zsF682+bv R39/a6s619ts8WtIDRXcF51d7EaLhkg1ic6M1caHRt dgwwU6xhvykzF9rFQJA1p/iToIA5KlObSMcXBDsxBmKJcK1wrzFMIeC8SlDuKByZx6RrWQtw/1h/RIdw +BFvDfkj+mOQi3kz6Q+iu9hCv6lb+Oawvad6J/FW5j/ijMG+xO8M8+mxp8Nn9pjwmOv/iN/6v4UqlNy/ Z7FbMb2kmxEyXX7rMcK+Gj+EhC2iCHUD+43BOHrWHx LnKRxYWZ6R5xfXWuzqw79dRFgAH6uxqQWe3/v67KaXLp8DjkUHPPZMTyWYNUOMZfKWhrssI3MmtJn0/i R/bZXcZx8J9KxrAfw7Ig7/BWhrfwS/hdnr/vvRR0C4vFln/hHjqZw/5lcdd8EtWA/E077/iL6G+SOenv kZzMV4OfcDuDw0KqtBOBhmqdTb1np9XceW6RSJ2Fj3 qlqm5IaNGnYn/Y3O2WUw347OGOY4foLqq+lbfH1CchKxpjco8uOs8hlQByeHusyFkZlxBrUXs4V1+7PB qL800Ee2FtjNFZ9n/aV7deWUCUdOX6VrxX+B/ydHx8QKWsh6uSnfW3S8jA4lY4pKUl1fTeW+E48bFDrA idvhlB47cEkk+acMNzBpr3N6p55XdE+wr3SKWsq+ft PH6R31z1JibthbQ0dcXVjheljp3Jz8fsec6hLFmc95Az+6uWT2MmZB7lp6fzF+R+/zW+lBtmoHDTh4na V0TaAnkF+n3ulR/rw+ubQ0xO17yg+r0rO2DxanxuybsR3Z1Sba/JDk8YhPKlYYsZki9X+E13NCdErIiH BP/F/AsKIM1qsC5rwk0MZIQ0TmZTsFHMwmyVAiTY03 q87+yBmos/uc74/yjvaACPgmnHc6VpROc93kuKxM4/yl/j9WjzyOTo11Ea7Q499Zo7Njp9iL/wyMqP5n lOOebM1GPz5ACKO5GQ3BvmvywK9+C1BDHf3ib8DTDCrpHvwhZh+i/2XAgkKX4/4Z4XMO6sLRKGETH9ee 9H7iK1zVtooWPVyN+BiljdtBVi6WrjfqYgsG0IkzOo quCtA80Tvv4fZ36Cbdfn0Jb75fnggoMnzD3Fob50wEgNFsMS3wfBP1dLv4acrreq7Xw0VZ7istWKyGrM AWiuMunVTDzK0K42GAFBTlH1v9mNrSSE1XvudiXcca9uErdCdVl5Z5EGfUz8Re/y8Bl96LCb+U9ySlcG 2GY6+G7lVLbYRau7EU+tbq1tut4GcF9rOB1iFG7Ogh bF5GEfsm7ex4ybbVrSqFqatG4gNtc5y44t7C2RSX4DuBcO9P7zPaRdznq38NB+bWCen2GcVm5iIyWvRT drWR4nikfVaxz6DGyhAN48ZqvZM5WSK997PhsZnHrvlcuvONsFVuBZLRDAp6REgUWKPxO6V0fkII2j7D 3pKAaXXQGZzLb6lqaYtgG8oo3QVOMFff/heM/wXjf8 H5X/XW9ldbQTguDJ9mVHgry+LSWI3QdVIS+B3sFLqq4FfW85/OdHJ729ZNqTj3gA5ckMhgmZMSZgPKzl DkI53K0t95TLKb0neFYahCABAU5ccZk5BT17GHJBMQHdAu6M6brIvM7IjKwYom+iUempQ2RavWTUG/2P qQ4qXZAokM0tlROC20/40x4lBKCr0cf5kmWb/HOrrj GfHHiaZ/sI2ikU524Kz9+djYizTzC1lSdlu/xWacoW88A57V+r7SbyMnJ51zO5nOF9/foObKuOm75DUr m9CJrX+EZhkUYzwgKNmEOGbULRSCW6Yw3Hpz2/tXshEHS2qwQIhDNHYIG1eDvK05b6MQU0hTeKh6CDQb M4ouo0Ya2VEJjbYQeTxYbX/G44s9FgeSOMv/OB0zZW TQ/hbDcxRR8styPwPlfrkv49xtWRfC3O01OBlWHQw/w5G7goO3/uhPUWGMTGVDMP8oGTLFfhQtXYP/XO LYKUqAk+OsE+SP12Ws34Ke+CkS3Rd6j8TaX48Z6xFhQUUQ/4GGGXpOjSFA0vgsITYDcE5mBTbzIWtQzp 5sgMUMxAQJ96/FmntC5E64RlW/Pc4ktR8QRKL3nIAL IshfpjUCCXlGpSZxMZ39fJfZ+X0Lcp+zlVE7vzl/UDzASH9KwnxP+jUgJgz4AdpIJzu+Das6v/Vg3+fE bjT527D7ssGwenAc8Tn07XX7nGCG7S5q1KhepP9JYUxLKORECWlT7k/YkHrs0hSGh92bZbFCMPR0c6n7 GiGQo3UNCHsFLhbA7+qktpdudRQeyS2pXG92RsVH+N wz64QOiQPHRND06jiDF1cG3x3kX9ujapBexgWhAFnljmw5x2dC11+DzY1RJd7nOXOX0NLbq6tDvSxZo3 oF9n8E+zA5LqB1S43kBTe91HcqB0/HNvpyYU5ikr3mGbjCtPKbVLFCwVNNxJ9qPf5fbgaq6X4fjq3/gn U2W9D+46MC/g1MqLEkxNpQW7RBCkK9YVL0cG8aYBW/ L0Od2xpsU5Gs/5ypSug9IJeJstBDAfXuMW+qgifqFRCo5TTnNH8UrB73GbzqEg1Lk9fmSDs4B0LiDBez BbRGkDNcl8IubEt1o7XqNSulMNC5OIR/wGNMWt4kd21rWPM28VvhR35PSljy5noxXKxpceA/jMFEAJAx EQFkzI+QgF/2HV79KS5unUFY78CS7SThgS1ed46GAl bCEv9deJY01ppgeWUdvRDrSePeYeRXGXFiXBmVbTpSiOICEkqIR24qOoDsOZmHqU8jiVM84dzsSPfbZH yjBozX5jihN9lOaW1vhEUffE1RjoGMliGIwvD5K4JB4gHF5hcqbjOwSs0Rj+wbV9KlGdPvs2SuUsSV4f wDe+VwAHXWompfU6dxUczXVeH0UQbqy08ICkRM6Mku 3TCQjUPy3VbD/CcuQI0C8IPjmInz86LY0lewKd0XBhVCXwVNGMYFq5gECBSPd/kjUoPItP3mWovrDUVP x8EzdCtuxDzljVwWW5IEYLKwSpeV9wY/GdURuaOEFnXtICVJdN2AwdlHnpGMX4QJOHNWF3eiDW7To9Uv BURjTcipPIZT8bgcgQ2uDyGyrlCRbkJdUaO1hqhN2N ieiGed4QbS4pnqtRVSr+YE6PpgdpNE+NLJ2saDqZ/Nq1NCmmsaP9o9I98AqvU69FzlhUzypeHwTY9Yxa +vtqzqUQhXk9Ucq5/gh8Wfw0FtO10yC9nZA+9EaL98vBQ0k1YnN19B0TBUWGGMKQ1ADi6kA5hxO5eXzv h87po2Q8WsGoczGbS9gs4nDBZxN9ZBPJf+QgfBoDnH qkXDLWjvM4gP68sHGCQ43pEx8JwmfPUpjCf2F1Je3DlbfUQJELaBuBC+qDuc6lS3R2tKbSdumvhSJ+cl 2NSy0QUc2swBTUEjX99ndTZrFScamu8g9jc9cT94xdGybwC39Vy8q8Rh/raP7opAe2hQaarU7VtTrtnx wgOhOsdA3HFZA+AshSqhT54iBF8UBMHjFSbOj6UGOJ HsGy/wYVUvqIJNC3BcFWHWZhJYqoFUJdkATyqKM68ZjV5AaD1hyxVm1KiVCGrKY3sURsPemfEmBR1Ocd iUfQadM4DtGFCSZHtOz1qFSugAhJREtTl/6J+40j/SV2vlR6D5ZY4ruqHANgCKaaMTyOEVBthYO/y+BZ B2df657Nr4pDov5JxdidX2p/QMCkSXa8Lz6SDdFKwI TdAtbq5WmyMcEc3hDTiWYGpJusO7Mr0qZEIUJ8XwmbOhewmk3LWXN8PPO0J/jDXnsPEF2DwNmexbOhN7 RzCqyGUAbDskucgRn3qXNjm5PCVxxTTT9xw8p/TETxG6TEeT0yX2AqWyArqMGm1UObpbPhsmJmyyaN9A 4Seu4LQgbP8W0B3YkCxfeyVDvAW5BOWZGarK2Htxf/ 7nr8YMXwBRwbUe6B0EGAeYIH+TnIlxU/gjFZrCLdbhNEbhKdSbS//Ey+kGCvIyGK8M/5PPE00xXMYqcx bNPyAZVW7LZzbHH+YWC69EYoWm4BwWv73BQBWZmqXHhfKGrBXzlk9JNkzNbcVhaay5KcSH6K1i4OSc7u sU118VrQ8BvoT78yVVTdwecwSz57AU4wu6ypxe+Ig+ y6kYM5Mv0StrP4xI9GwBvIBjyQBv+U7Kgcbaz31q6vIwfAiHmwSj3L8+GqwPF3E1lXQ5Wz2T0npYywzf 87g4ReojaeIWxcjBh2gVKb4wg0MZciIJ5XMngM6pxgOzBt3Xz5WGxEltMLsmstZGn5X+EkdPfMQk5+jK 0yrYs7EjVGe9WF7eF0+mOaEXBZOAsX2NS6ltRudO4u Boy55JfhAnNxsdnRzAG1Cp5w/0KpR0h21b4uordkqZ/xKKbU3qrLs9nZdHKeqNlyFk6WosD02b/TAP9H O2oC/qSm77Sn2He0PCV6MT+GgU0V+O9e1lG4Ml5OvtCo+zY8YTCa8QWiNd0WBlsHUX5besQ63wT8aia2 H3U6tMN0AdH0WGawBmH20BrCWs5E+x4O2WMQtDJJtY zyL2EazrcKl2iNNlTQ5UhhdTW8H8duT50DVkondGe22JO5AueCmB22L/CiC2KYFsNfXCbn0diO0zH6DW 9kybZ2bCenNVsH6gXx9TS6iDxGq2WGvEEDkvydqhQ8Y1aGbZtH9kdQOgws8FIQQHDlxXgECuFD+j5Bg5 Ro6T4+IED62Rz7Muvol2leR/UemfqPRPVMW/UVUwqx S+msb6VbF5fLbFK0Wcw3K4H7msqHgv/wGGAEGOk+PkRK/+Ze7vfB2B6CtEHPDD/9uOMCG3Wo2XhM7eHb Hl0gylQi7JF5AqMkAmZfrmeVS4hHv1jWgNjekg3j1gP5+ab6DtbNJp6JYoWxBZXq9cUmvFpH+dwc3iot cVafDhMmv8UgA8b2wi7wUT7MfJfBMc4WG7uRWaNhb+ gCyIRIEiQNWdKlqMmAFIf4AsLkwFfUyfmiagYouEmOQtSqvaIRJQxGDGLMtZh9GyZFXrsytPlo5sJYDI FOreues0qzuLzmMdwFTT4+TOM4KX2QHjrAi30HKadzXfmkWoUrx9yTKCcAZ0UHcg5ucuoE6gJZXlgBYz InX7QCDBSUFGa8MbdLxTDISwtoUWAVGNkOz50x6wux V/SyQ4sRBBaHcegLm5FioaEew2YHRXf07msfRXGR9ZvUZJuPNJyenw1pJtnRiarNuOAO1rqIMYqjYibZ 3jgH7nUMpMB9PU5WWQMHH1h5mQmN/qyJ50vkkDKMd0WdIw2AjCm8MrmzLPxusXuSKNubFMZ+RU43KMXY hORxBNrYrNCJi5UuLm5yIlPrRBk0wFOqvgaGWhZJFM Us/Gz5LVWMr8sOMLfmULRlPtwyVNqURbfZI4bI1rPCtzDXu8WHPZYnN0kiuYYJ1HWxqlBKBe/swogIpb Z6E/NKF3QoCkUoRqHkiVncKI3wZKTZW1sTiZTXC2tYoNME59xx8BrgzuEpFuvP5WpdMCAQxNE2IksdUH GeCRKsm6UWNL/huGyH+tzAxyk0jqRX+FXBkaOw3C/o wKwCJ/V9Z0MlBOBVPofOQusFwPF7U41XeUWECSOM6AdmZhmZ/ApXbbx55ZxiGFVoEaqLTx5Hu0niLwfp VscNKe+AhIU+lWmNshGKQKmvKe8IuI2mcJkE9ueP1RZAhD2vM2HBPng7neHdzYIjfJynsbcvRUgva0kl dQEIMc+ADJILf1V9bFkN0ijWpcHwPwQeroaZKeEfYb B9ciLWOTGwYBT9cRiioWxcsCyWGZ1T3GTRnbb2UoE6GYh2qyIWO/0LAF717XeSQYkKr/MDAuschZrKOU nupj8gcYVgsGnMNkLW99G4K6xBkHxwDOvwQ944ITeeH1v2LM6EjNWLhZ3T8K5C/Y0K0jrLkyKXPvD0Hz SyT1ZhsLc1+Z7mY2G78+iUb/FGafM0tBH2q+iYmRUa j02N35F9s/FExub5v8E7YUw55RAR2TWteuUkvtNWvxxLacO7124gwL5BffO3xwm6vX3wlT69500lcvS/ +LEV2inl56EH43HT20IT4dDRSCeOSWygWvzanpkVXsIWaBxdGiFYB7Lk1z+qzC2R8VCn9ZEuG6x2Vujk QD+oEP+Gm6lEnhd05FLHwUs9gLmNp6kAkPHFR+FjmL w3XHUIAM44vIhnU3oKE1kFGVSvvOjNE8RIotF5MQJ9pdLbDHznUBHBaRMkSnMVABWirGFB5WdSl7iXTu 63mt0xiS9PSWfL0siVV51INdcOSZ9COw/olO/1GwABc2gFUQwhkf0WwLtR3jU0ijmxsFL44RSsbQPNt5 fX066+C+0eEkeVqNQ5AwXm5THMo23RnkjxbL5DxkH6 0rwqAxHinUI2nZ3DpKmBoL5nHyDKQvoSG2ck5dF2VdD//AOecMdfAcmteEWtTCorP8KB36miUVWQkZPc P44voeEQsX1mYKhtSLGOph76WKcU9H3CloTOaE0QMcOGPW9vchMPaTXeUxfvDvvSpyggWgmdiKcwrvvJ AXf9CbnWYa8NfMWQzcXIFDN0SeyRqoQGM6FlIrrXIn eISxjpHjrOPkBDnBFmxK2+AptFtcbpyUE1H9dtJUBTySPk98IYIeY8YAgm7FvuTd2gRlwrP8I+F5zCL4 m8E1yTlsp/6Ts33cDh3XemdinN10AOrMEEtxzkDd1CueKPpnm9jK1IX8nJG8zF27hculI6tPwS0XfMzh 1O0B5T8xbkgD01KPnMBoYx4v8+oanYDvvge/hWNP9P sILC1PmoQ4twQO4bK2kKdn6CcqwvJh7zL7sFzo27FaxkAYjfJ0RWvZyn5V27EVoYRKYkz2ksvHvqAlTS E/1sePxUc0JtdnIyeJwysi8npq4+a3xT9apMcdi90DXyOLLJ19GGfVW/NMjxMTTKefB1eMfQK8qrD7lL Shu1HWnlB0aYfMxYUFuttvLV8quFFtjtDGdXNOcRxU pnRO2ph6oHHFlXyp5ViVtBXUW5kLbOcvL01ebQhezLP6ZZrkSrcpNBVuTixN/p8RLaIDG2bihcfXQYxb AUgclTgTxWnAL0tMSu27F4JmSUPLM+Znf5BK0QXtmcIyeBeJrOUEcJelHQgmFTISjOlOXDW0YUO5BADY DwTKT1S9GaRgQpogFmJkWp4T+lhOr7BvIm+0gg+Steph FhPxmHEyTlvdNkfvCTiwTT6gsLYOBxwvEsrNHXHbtskKX9nZZxhlPSH0ULQweKwjnLBlF9VNTTtuYnCn l6gtT8YGl/YFe3V5CdvlIhO3btnB1kP9uSr04Dqrb9MehzclSpmxaV+6Zwl6SrPB7U4aWN4pVkCZUnGb iN6vTTf+QOnfTaRVF5b4MMiVPODPglL2EEKQS+qqHw 2WyTbQhlge7ncY1cO+ZHCdjR9O0sza4p0VoR9ZxQ+81M6eW2ymiBLtFCR4AaIX3jbPYmJMktWwtCAxPu iLFuVo2mVMKqVgDQA+04GtOrb4AwU9z8jwlBbBRGpP0eLqIDe+opVYQ2v6U9r8Kq29zJzQNiGAUUkyW/ 1MjJr7nv9aIyUdSxQ5O/QvDfWOfOVQdnroVSUqJjkj MxQxg/OACN5vBojYNzlOnInKIyXK2OdPQRGKFRmvRTXJ1iWn/ptVt4stv3eodICY0wqu6buS9ho2QMzE 7dIEiIrI9m7Aq0QHoCS9QbfSkmkx5NFJA2sjNE0K2tUXiJWGGorXplZBWTIZd0VAsXL2AAPrYnTmUlDF vNjgvZ5LLUd3EVxZik2t08f16z0bVl2jmyoM+86Z+4 U9lpnctuPdfYW9kU+JbmERxxcx69F/nCYmzanLTvhhUVfteSvby9Yp2oBPAgtZk5nKVhCpmn9Bodpxyr Kk06M4L/bRWXtdaJB93QerSQ+U7G4tmyNUo8lW5k4sg1fiAoPfm+C4V+IlXMe/eR+Rm205qQlQA0Z8WL CBJcBxsZL9sDrUgWzJfGM0pcSiTFUneBHabtJcCYrj WFnUpLYOXhV1Lockxnlkst07j57HWwVdLyAxsAjSVEXMzq9HNdRrnaaw1N5VPbmKsNC4d2FfYJKNCOXC iwoSQ+cdDrPmiCEK1sRV2x+PeTQOeSlvd9AJ9vuTtHKdBCJO1/zuwx1rtNQFB4uKoLBV6ONFtJqFQKhx dtfy6pR0jB1PJdeVMf/U/HzZB7LAuN2Ievcr0vID8g HxcEKztdGuwgMT7PpbgxaY9Db28QYDmdsj7d6632aPVXWP2ik2eq1dbjmTUAnUqXEDLYQjEV8HOMfZeS FRyk8iHuLPRIpC0AvisUelqYB6m469Oo89LbFTd8z/JOSHUA+A3D+w+54cGunzv4PaeHfWzDRyJLwA6oNxe 4jKiqtDt360S07dkUa0HatzZnOUzPxQixjdKiWbCNN k8qSrUAnpbvG40n2NnRv9hueBFRpIIlIw7uL4hQlS8BN3VMjWcWMz6UUSas7HXdgtNWJiwokWPwjDquj R9CZIftaBElSdvC4M79oh4fmT2QNuQ3OFOgMK7Izx4aiiAStYk+OHEznQXCmRIZ9KfnJcwp+B1kTQaNd 1siMAgGRAV6aFwGNdle1fJ7E+DMOdR7S0kF+ PWJBxKirln62lU5LtLzihjzKf/MJKRp4A5OQK9mBq0tEN/ZE+WBPlMJjuYSRY+Q42+cfBVlWa5BPJ0CD t2TgAQbBVMWFIuOmPQR6mzBq5mzEOti7+MVAqI3ihVI6YKucykBlsb5UZbU2ANSHK+VLe+ItFmxB3/mW A2c02akXtuuL67UcEX7aUHNUN0vl8rngTF8dwIAG5J 2jfPBPlE/npbil1Rb2wAW+sqYXa96PF577Ax4L0nEkjD3uaXngqZ7yuF/+xbUdDpXAP9pb4QfLydRaLW 5UexME7hVCPd0PztXK0dl4kfiLbpEqbaPGv5SFMw8EX68LXHhAfLDGj6D2JL5Tp1LnhwqFf0plVGWLN4 ae9yFVsjD4TKtQKjn73QAIrxM+OP1N6eSpOZ1Im9Hb aU+ykqK69ZB2wmDCe8L7rpSh11UNXp+Z78NbfN95TgdwDFgT2Ojen4T7Wdb6VXjeBRxKjtI30k53mIRi 1hoFYGK8EBmlmKP40ayOQilab7A6NpEyYCN8WvFgWT2PlpCl/jrRC3YxW+MY+Xr5bhOXqAeDcaaxTfsd E53/OsvBYTbw2LnORCoR12Y2k2DAvZcvr9IRtQ+CB5 +fJIxtAR5LFqmHkBAe7LGXdfHggSe3QFl0pxmki73tlRNAtm3dY+InygdkPvngnyhftK+ufNExouTL+8 5Ct7Am4u8PkfBJ7yeU6uBI52x42Kq+5zha8jmp9c86cvw8P93w+77faSj2stCn2U0xX7dFUTlOJP5BH8 4kAAg3YFiuS/mJ1NPaEJsxwgei9inYq/iJ8sE/UQqP pQQrsO8ZEWAsTAY1z3WMvw+85EkxKnHbJ26VviNS3qWPmpIfe8id+BYKj+CwWe19YTlQrxdfEBcTVRku 6JwtaFeCNTkC6FCJ6yX6qctNZeDWULFV1KLukDn7qKOkkuLoCYCGCYtZytxre3G3Ddl2d0SGdqHalvUc cLJCIFMaPRrRHHgSw71tbfSFzoghW3+lHxqUtiltgy NbBdU8UzoHOKSk7KQaQJfBV5nT2HemVfKWZRwptOkUSZk3KxuS6NSjDMxOoSMvaqKVfMogA5m1YpQAu0 S/yrXsOf4OzJ58ICyJHF/M8U/HmSZBaFcV0JgOe0RQNbQ7L9uppklHJbRMs7+i1zd3/BMjivNbD/aVdu 712GzqwAk4U0pJs7Ol02k/hL3NfsKcQmIzexgJv6GC 30KR6G72MiHEv+icxRJclljeBy4zr01jMgHxOhgAhNCc6CBi6BppHZVcRHGXPHODe9HpsGLmXJZC5aR5 vKhJ4d9exVc9rr6yZ+9NbCwiZ4u49sBmowiwL8yi4UakbY+jRv4v9l3+LIGTS2mH9fxbbkMw/RMvMbG6 2ZYzocIa5gKUceXq/CMscq58AwYpq+UqNPW5T6+04H MOdQ7VexPoC9y+1IF/olo1W9zmoQ7xNsF7V0DmTgwkHVf64YDbtgOAtjA43lHxkadUcvDTXrRFzXfWKq seY5amjBYDGRA9Xk672qI71vrNxNSP89e+Mpz/mfDZ36z8LUgJK76WVc4QMiaxTpEvQS4vubWUIM2bM7 X4TbhMp7Z6N2JhjwNTvE36SPfvpulwQ4pgx6EZcE6A ILvh8syDVY43G9wHhnQE6cDB9V5rSLmJxH7k+FikzW6SVikAP6s2y2YWw+Qn9yaPOoS7MELngdjvYJrk tao1s0CXlVWzYFmrK67CQA8x36AsKtyA6ixJzBXiGJ7roNwLSa1oQN5zUSImxZtklAhm4IEcannNyjYP fyK6cWECi3ZPwACaVRr+UE4qCmWxaE7cxnyR4dJqf9 r0AkU0pX/H1ZzhUcJAmOfr98VUgOMJVn6oIdHIXijmUNMLIM2fC0P5IOvinmcu4y2GvwN3PQNZFTFNHZ KfKrptHGIY3M2u4MraT7NW0Si4plMKn/RB5fydwS2iO3+jVdq2CpIjHJZI1SzYn7J8YsCozRlziCSxMI UzMHpNRKxnTLpVOGsQrNypWjZjVAy0deaWyRLi5+QY FLSA6PUeoneOBgJJWdlwlH6eykRpX1nfkeNCHavbJhsCayL2IqpuuWeBNrbGOmPQbCyNPdqXod6ZZMlu mPCTEN3Q6yoe/w0z7S3yluwNbVJnRMBzUUU+B3ilDH9U4SnFLBpfPHvUiuzUc0OoIn07rxsaaADiNJXj IDJ8pEQ+F4z/EiQFYFBdpBY509nkimykKHJ1i5st5w ttlh333/nZL3ySTTxt0bCJKHwveTuL7+xMhS97R5Q0cP+vmxaOrfaLf2s4dJg2pCN57qxB9I7s5HwL2a m1J9ZDSZL+31vLH1Mx2of/An9Nb/xGEV/4z7niD+jKOsY6/Dc6/31MF9APy4ALcRrqvmnFDbbTTmRRil HBUXFdxjeLt1WRKDlWdvxY6vV6tXMbjxHCmeSdjBGH 6YGCFfvFmSWrYGriA6dS3zBTjBM25mcyrXW/9MxwMbWi1ZtK161zfp7vt8wQnbV7avzqEeb5nsPffXwz YbNszyJ9NF1UwwMWbF2zFOa64gc31l3txtiIw++1oaG7Yfo9JL5zCqw1iVteAXycwrcW4iv9rCj5dIb0 IP318pyuttV/9luXwmPJrzHxWPK+mzrSr4FPgvvU6C nvF24izcRrQjj3Lm5hRMRwE+LvKM9vcssr+9kB1HiVUxbjGp0hrY98emifYe/FozgnNlB+tInHslJtTT vUvvvK3F6oEbroWZkBiVE+6BKpXRhKHPyiMrZCCut95Pv3epSTjUNGJrT27IVqQS/EexHj5u48tkExhr 8szkZkU84z2xPuAJbp6WHrLLLZxwVDWf5sHXA9JfUF wVnblEVpOGeagnOmCdw+mWKs4+MjbRUB9TlXgmGc4Z/liU1nMgnJ9rGX4pIhl7jSGHhSAgPhrBjZArck SLN7ZkRV3XnJYR6cZRX5uWdKOd4igH/UPfATxiMDN7i8n/GpzMcjWj2BY4oxlCgy5BuirAahvnJDo6QT kETxtPmLso6s1N6grfpJtJ2EdFm6nKv+kkKinK1cOS qn1nb6ZMFK1TsSK9AZL8rpei3tfpLV2kkh3pCCwbeK+1FVnN2BeicpelRyN/oMTKCrp0e9pao41gxuWz TPSX4gpp4DBGuY9w0eDy+sOqknPoJ1+w2VNWCtShTdRnoRu2bGINcrfENngiTrFcK2Rg6D19k6Ov2YGs tV2SKJKszkcYd7wygn7M7o7FbrAU91cKS8mwKcdsAf 11UIErbgeTUzMRpN0iq4Eror8Hnz1YyRy2XidoBbPF2XQxOPL9qGhqHAT57MrjluSpIsT+KxNNG6/0Sc jLh7fuuLL13Ve/MQESWma46Jz+H0EkKtI8sakh2wE7lO3xOMDgxXorSqWJ+D1lR8heDO7rvKhVMuJt0H fFqZmfl8U0qzRaHwvXkWBVtJX/YWrfJL2nZRp+LFY6 b6obhrY1/lBfpH8nn56NmVQ5hKYQmFN6/rxou7cYEaBv727AieXkzZs9XSHDkGDhcnzFXH/NIKj+USwR PSz4WUwA3oMY6TAS8K0Jvbh9FoIxYmZM6I0MrD3nXYg+GtHUOEbnu3QWmx1cLecRfYB0tWT2tNdEG8WV cD/5ADPtrPdWYKuqY2NEobkdkbxNkv8GzFieH7KHEH uzvyJ5jGe+mHDGgLBhW298HFmPYwQYJeBGYLw0z0WD/PEVhb8gK5MmP5JzjmoHpYqiFUVOFEUteg2glL bOvH20DkMR8sFPWnFJxQa1pziQuy2mKNzejk+zuEt2RMhyu0YEa4ICdwuioJgJzFVKgIxNNQpTTuKHta O34reLMQKt1DGPua7+JEFWusMlkZF+cS/iIAyVqNPS IafEavANfHof27kfFH4wSk50gni9bddeMw5MavhvCbI6cdadTE+sFC/ERZeY/iK05AMwrWM9pZrWBJyN ciF4/dKcpRfeMDKNcoHMI9BEZNshhp1NbBFPkaK/gsEi7K2DlcXLudFw+4GA6AJoiR9JPtqRZMwWVt9c t58Rxzk8qK8sgEdLq2nIESePPYaGd0DIQYyC+lBDhs KMs/sqZ1FezWkR2n3D0kbl7jI/ILcjK82GMMyutgI+Z7z8ZXL8bz0Ac2Yz6US+LybrI4tLIudJk9khQ/ QsfhwRAnR64EK9xzhcYD/XYnXAi2FCE8q86Q0pcSZU06fxHYf/XRSoI58Kvl1skxS+p9qB/LT4k+d7pq Jh7/rEuTLDnBoyvXOSk28ahKrExfYrn7SobRXu/Ben vl8U+DpOtwKCDumgAX3Ac9aoeOh4qF47Ovbg5omeD7AYaMDnxp2wdAN5/5GtQhhHTtzZ7xOXTuy6710e /yk3VwR9j72hkcUq1Vt+Ibf102Y2IY5qY2aD6v1eUO6z3UW2mM9YVOVM/AcdQYLK27pJ8R7wQXaE+Kfs 3VYKxOsRN5oyNPhmi1qFmEK4uuvli2xocZKnnRRCZi 3PTACNrtno4pTOtrG7Fg2vqNRGk8KRReOTZkzSzzVfJ3ucK+gytV1IFJKiaDlohWzhkmUUb2lrMJcfiL y4zYlE7OsWoN1orm9l5vFO+kSJZws4fkxaUlrNXiH0jOOSAXjUaJcadgayl7uuY2CT783SIII4fnbiyA WqOfsV5zV1VjmWj3sucbWes2F18oooj4jmQJgQWeuY JcfJrzIG5BDGHP9PkOnmVPPNSHxaEyhNYPhTbaifdDz5W1TaGp5ZsPSlCN+5En7S15bDkkPSdZPeVZK5 ViopKrYjFhiyULbZBunOjsOaBrtkbAR46FA2NML1pMNyC97Upa08h6ICNZAf5USs4El5YIvDTwnISVFj XEvJEDU1hpohDOT8uFE+MgPLLo4HtjoUbOSoPMI5fu nkcJa1aeMRZuF1AD35HYYtcxVOFGM73V5M0O1mMO+D8DzwaX+XWlL6XtD6X/zT5N8WH0My6kgG53HUcD WykcPQk03SNtSU+e76A8G75CrXMadS8ubipf6HURqtX0HVDzZ10gAu+9wtEnYmS0vkXkUTEzKN2XXSkc Co/d4bZbagEZMkowUKf7El8YpaEwfFsyoZeH0ewcXB FpT9TN/0AGVrYlIS7NFdkLFu+lBpH+iYXHcomF/uyFsaZ/VhXlGWmxD2s0bvjg8ij0Rq2NH9/lCuC/Ef jOorzHYh++AxY91HuBoJ64KInzd8IWAHw6KXF31P3syWkggYE373BYxq67XEt1QfuLOJWOpaqwi/2ff/ +Hl6juG2G+/X//+V//+Z//+59//79//uPf/wa4U0uD f/77X+eKy0n//3+dGy6d/uVnJNCf/njzf+rjSw/kj5O/TlqQLyg/jA0Hsc1GE73TPhPZuE8y60a8B/7O dCA/YR4ehjdb0gUYI18wGrpaJG6m+nvTkDORj/4K+idEcmJ38G+zg7IbVum8nRbi//o6Z7eQFtA77X7x I9O//MSK/umFvyPhTP/q2xqw2sr/C5mG8q1/+jtXlh ft9ET+JM471yGgx681vSvvNgabaLJZZ/wxMVF6zx+ZduT/+jx3rrzcOOohSmg6P8qv/ozH9gyuxF3/Cz 452PhdGh3my7JHyg3fiE4ts5h6w73NQ26a9/i7V6gl7pjSvB26rku+34X5rN+CuB34EC/Sv/qSLtxt2A TT2umJ/SEc9GsvB9+10r/5iXWVgQ2zxfSuP5ta9h3/ q+5pq5N6jMt6wWaj/lnlemm1edh4/c0y9iF/oIrutXrHn0YuY/vN1SszV/B1MlkoiOkc2nXpjgySZqzk 0eNvG8/dLd/RX0d//cM4NzwJVeibiZvAs+W4EfAbp2g7X03xOpN/+rtGRST/q71N18sgyfQ//mp+mz/V TUxujO5/jlPlSf/pg3098D3w+W3+1Dbx/MZ/WpvEyD b/+da14k59p5ydIG+V7U/Omds/je0+96ew/FtNDr05btbpv4DK+atbwpi2eo3B//ZAL33hK24m3/rPL8 WWULsq5Jbfbq/r71cyf/27nfpQF889+nrzr3gc1+/I7/8qbh1jO288je1HvvfX+28R8Bvx7j/f+8Z83q O/o520uROd9Q8q0kvPfY5j43Z+98sHrJcbSG635tJ6 lPf+b+3JDi8kpIh47peLX8tOJh86Au/UKVTw4713bU4jq1iiG3S/3n/1jZ2q40mv4bTA8d53oeitg2/l tBdMrAft7X31sA5ucP/nLKMKuly4DsPQN+hXkvrVrjTyF/IX8lu/EuhXUvpVyj//3y/T5/970ygfkBPI 20nbdpmuB0V+0a/ml+nx/qfnAsjLl/d/PNc/Xnp2e4 5+qdGq0nYixwax5E/3TN+Es6FizLqcB90s6eP31cE7zzmK/UoKr93G+QP56G/kFcvd7pdWU8FllYU+pC CFEZ9qpzvvvZyuwPC5rMevuA+0JyAf/Q52JlVM+rvQ34X+wv217EM5tGI+Pj1KUr+iE3q91iLN/arKKP VDY28II+93Znn/hQ205amL6llFgu+Xw87x6NE8+Ue/ uvnjQ/rppecOR+tX9xvJp44oYcLP/VX0V/ERpoww0K0ph4i4szJxZSFDra4+X4r3e/AvZtP1itS+pJEv GALINA+Qg+/B9X1y5nEj3BdMZ+XXkpOaLgyULFC84K5oFtqEN/8+qDjjjm22fg+XD2mUx/eb+mEc6J5vVP/1 yhXtwXrleL+O/ciBssN6K/1v4cQNc6vg+O75E3i/gf 4G+rweawo5HyzKUL5kE+838H4D/F8P39Q9R+tz4P0G+vtNc2TDz/1V4y8a8CS+76/l7K/Lb/yPNubzxn wdgnS8suef5+xZN468oU2b26psqel/o43+tywJMvtcrpF43/vd/W73tbc0/ugzXsCy04uvpVq6v3/1ip eeKD+Rv1B+4bmK5/p9Cqwpri2ezrY97x7oZyAYchwA tcc/dyp+Zz5D8y6b/snYHs99y6Omh9FN+soc/pazcC0qm+N4kRhu8Wtnm/ltRl107luNn0qOWnjTce99 vTXE3jd5UIf/3QyrePm15Yk4F158fCzs482kR7/KfPk6P/WrmfkD+QP5vT+wiN0VouR/Yj8yreD/v99Z +lXK7/o5ikFAXu9vpJMcTea0/wpqVlm7Er5lA306kz BXjtSE3wCMJXgAHrQ2pD8OVR3lS/aXzvMN2ihsl42GbZbkll+UdXN/nGF6yxIds0gIEfU5Kxv2p00hg1 i5Qkv2Cl2+84TEbUaPq7nlL05eeAx/kL+Qr5CD/a3sZ816U4Eqe40Q/U4KMx6ohZm/idTZs5042kc7f7 fb/lzJ9dw9h/pol291Qx2btaazfWAhxLe/+qv57R/9 yr6s++yhBa9hu29BxW/966/fpkV6L0+6v/6mveJceDg/tF/25Gch0a/64MJ565/wa4W58uPDhmj566YW 9XxE7iR//F11nyaz5PnFr9Iye2aQWlweI95++tXLn7/3rVHCt2QVqf08jL0nL/4ma8aNzvKAP+ilk/71 B21O32pNL2NBDX/8D7W826bzl1ff2uF1/ncavl/v84 Xpvf+r9sk55UuMoq/K+Km9p6fpFJ2kb+8l1vmQL3F2gx4/c15IC32vy6UhMR/1ygP5G/K28yg6Gd/yMZ +MrhO7k2L/ahFyJ4S+Kb8qh73Ojp5IFxl4MOB7dP/R+/2bjwFRUqcP6M+Ub/9gefO59QoGedb+OaFfzS 3Ih74B/VwIu2u7zffDZyw1X6+e0K/zjz8vKm+a2yEn sR0oa5sxeJ11lone09pwA+sbyG/6nZ9rY4/Rrxe1iG+Rv5C/kN/364P9DrTembyEm1D9bXU2e4wA1j+u x6T79vxH1LDFAfWryi6S4Wf8+17DrC3Rnu1oM/Wryl/I7/3gGq0/b9SYmxix+8WD61W2MlZN7VpU1/2m awKG6uBKk+cl6K/g/Qrer+S1Iy0yrX+tzF9P/1ypX1 W+Fj19fM8J04dH+u6udvh9FsX7VXRz/coq3c+Rachel+wAf65v0h94I0gO8UbhT+9hxBdUbqfq0uVW1SNfc zm8+q6bkwOw1BpL8niWt+342qW35l4m0pk03Gtssz0UIT8t4A+oKGzx57O2momvcg5a0UfuGNll9qxSA /+dt027v0DgYi/y1E+8W85b79Q2/Pfpfh+Ff1N+1Xl o7+K+swfn99Es5fq9P/lO6zbHxU+lKDbNqThksD5oxHPgwXT+JiIRW1S/SU833Lgi04fXo1ctu+G+Zz2 n4rr4Xm10uQ214Uht4u2jnuUKg5zlF2wItcpUI/IsjEcoR4Dx1Ss1/Pu5Xi/kgvcRZ7f82bhXkgRS4w4 ppZa7Acumz4v1rQfIy62uYx07qKhDzju6B3P2tuB/w q1n9JlnMN3g2O2Q3f/lvD12MnN3c0Ca/1SLzqkmu4amQ6ErE/6G5l/+igkPL2u95R1H+pXlZ/2jZNO+9 VNt/zUr7zS+tqQ+uSJVbjym828sgumZv0sZraB4b07C6VxyP8p8uy/szuSxtPqb24K/arS+B/ttm+s3f 4ba/f/SFO/mbv8wmsF4s9V/sdQ9c6iba9r5F/XK/16 fdZvIb/FV6B7Pz+8x0ccWy7oLg/231CcD+rX+oZ+amQK8ffds8+g8L/E2n4uJ159rs7tYe/89kfSISif +1SVW90pk1SYj9xlaj+WTEO+obxDjkN+ID+Qv5GP/jp0E35bZBp3dToCvJN27KoIH8egk4H+obyivKK8 oTzerzja0/4boalua49D2M7J+jxU4X+ls+2Txy2//C uOV/47tKcwc1f3Cbsuwn+4YGg1d6++myMGW7vZ41HapoqLT22v97t7I656veZtB8H+y48vn/xik0qir+ Pb7tz6eYE3m/0wyl7Nf40+Naqdv/5+K0nCdy1Vvcg/A9pG9J5+jsNPvyr/iuOAf+se/eo7/irH/f4cwv /Sx3/j+H4c5/tfmOST/yH4dWdxwejMlm79Fsf/ym9n 4f2u3v/w1f7QSbo+oHyf7+tq+4bC/6n6i5c34wtFm52kO+00v9upk1N5/6u8XDeGwjBupYfIhqFJ799O Ew88CLbKKfLjm1muFtWYU4O8C7dI2vyj2T+fgqtxQOb1Ca0fv3L7xgd0xN+L1vbAjdQpRazJ/N4fqbU+ qRaQHyjf+vVIk0WKv1wr+7+T+lWVwf/JTlA2f8W+UX 5Cfu+T6AdiQATa6u3/j97/X/U+X1Dv/202JS7ki9D6/r+pX+X6k/rV+vci1cwi6I3k8hk4bY52Rs+i/I G9oxGSzJQ+Id+qnzSwY5T+j8bsP2aF6f+Hy4x70pzPzj9+si734fabQ1Rzhp2NEz2S/slsIRb5Sz8a6w K/G/1N/eqmkY/+pn6Va/zmcTQEfwx9oQY+ilUi1auk m1cuAyvQsJz89XERY31lnJX/MhJtTdg722/+444L/Odh2wB7onvPepVy1yn6tGMhC0j1e/1lo4ut6N0z f5CsAWiPFj6nvk/ySr/xt9H+v1j5uznmkQ/2q5Bqs8O8roZw/m45BAS1/Vraryp/Q/5+192hi01T+1Wl B/OPsonusp7m8i2pszdt6xrxIki2PeXY3bTUL/tVpR 7pMC0PkcNc9C69c/FIs6fhWaT71uzs9Q+69nbYqg2vgnA/E/1vsR1X9j2pIiWd2kqjEmI/12dL+9VZh2 2iv/Bvt4n+sb2m9vk0cvW8b/nfrTG6hwmG77ykO7dTe8qq3w4AasA4scWI+Qr5eL/YDM50QR73i5ST+Y H8jfw+4fry7gsH/X13ExxF/0Du0L6B/dW+t2XfT2N+ BehW1ipGB7vf/Mq4e201qN/F+9VA/ob8/y0h7wu2C7z/V3n5oc3p5EOo2p3r5gH4Z2DkbtMD5nrtSs6w 1lLD+mxYn49+ofb1famjgQ1gwiBbkP1do9zc5e+w8qAv8hlr8JPy7jn49zTgc/Stt62Gg2Iu/kvm4v0t 1m4l0y6tZJ56fjcNI3e91LszM4+q/BkpwpzUcR4d+c B6FR/yB/LxfqFfGfQrS/9n37b8ta0i0FhF/yrHs4b6vb0p6BkFmBU/7ZMG/yuLQPlA+Y3ybW+38i0zzt vfzHA+pPxitF9v6/pu427igL9xyqP/3fw3d89u9Q+kow0klZC169kF6rK4CPkA346btg71lz7+V/51fx 3ng/61v5l/gvw+P/Jf90zQ60T/Dtzo7OV5dS+9/3XY r/xaiUZ8X/zr+vevS46fzu2+lfdB/OhXmv06+qUz8woYlePfX/juL5pW0/vRr9K/wo9+lXdD/OtG4Rey R7/lLWg38br/+lDEcSB843+hKVPRHnvrqh/8neWlvc18XTc//hX+069+ENuZ/uVXX/Rxv7qrhr3XW7Yy /eo7tgU/+cDYtPa07iv0fWBzeAF86z7nSUO+VXLSPy pyye5LCg5Khj/o0v9fl/2nrK6BGedUq3p7fnGG51Qngie2v5y2/2grCnya38+O80HH+aQhgXUmIgl7A/ DL75AFXrt6/8UvKa1Z98i+Qr/y0q/OOE+AfGzr8RpD/ufl2ym5oz0t5M776h/ZeA648GuskoYA0lU0e5 m3MhGN6avu5JZHwvtS/i3AesguR/m9X/FGu9vRxr+t b7h+yO//kad+2HtFwA4g8/sjT/3xWw68AeYLNcTo/Dh54ohl4/dDPfWrynfID+TE5Xkd0/0Bqk2OYNMu wWOcF4YncOgfT/019NfQX+nUCkkXGBoMrhSAwM2AXn6FVx9TRQ95MxKRNwM6yfi+qe9dfvo7154mofi/ 3fec3h8ccrMp/YV+5Y7+ba0U58xnM0E79Zf+6d76pL sjv/VJ90D+fvqeH/0q7dV+9KvUG/1gRww8qG/8yIUs1pPajKxMo711RIGAp2etZ+WPfWNVGvKP/lxtUJ I2VUvMm/qb/3uxH0Iqbs456hg5lxEtz+5x2F/dc85QL4hxvdeny6z7rxY52n/G+039qsrj/xL83Ld0bR JEFFRY+S3/suvG696s/PUryo/el5tfL+cWfLkH5J1qHm5 16tI/wpv1HFu+RNyJuQvlF/I7/PQ+KTsFXB3k/L68m3nYztDHBtx14680F2lU/1N+9VNt/yB/g70t+xX rQv6Yo2L/u0B//ZI+0Sbu58E/WD0HcugpfUfDjV/N8ZG+K6dLvj8SsG/RfL00w1F/6NI+9VNI7/3vwH7 VchC/wL2bYsGovRvKAmyb9A+/79R/wnOnn79QP4Hgc n6RsB+FYjPEKlfpczZ+/2Y6C/xZjYuXefnV7ZNPTyZ+SssNqrJoFxkDQXG4cwfnbRt9DFghl1vX/N59X dGw0exLVaWce+xer8fq/f5ziPnSYjq4Qce/i8WtVa9imTz5vU2rC0ArbZaVfLvs325h6jkF361/db5OP pV/qNk8Sr1R4ibK1309r/U1c8sgvIlbn/kS7p3o6Mc ckx0Ir/0P6E4vV9MvfKGgZFih5w7M8tUz7oADA6ol2Xu6WlVN4xWkliugG8M9N/U3s2P9ll5fU4/Cut4 B4HqgxSJ/oQB/6tI/zwgg05Y2S4P7/1RWPtPhgXyA+C28Dd9HCa6FoM9w1ZU1ddDP/Q4VYJ179yM3tCT R5TocDoU8/BUrZGNYcesavvmA2DwcW1OpgD1rr4X4x FkIgby+eh2jcxLblmkOfo2hONtMfA7kfvbj/vOtCIf/YX/Jesus+zIhN7cq9htC+0Za738+AOMWRw7Wrc3 5+ZVX+11/L8ke/8q/QfqSDzLNiZVcj5p/+tKmT/vU38ls++tYdt7mi/wuD43a1La+ERHmA6nIZ5F+yPe ezmvuQ9q/SzhBHv/pi919uyagzX63+gt360sjDon2d oy74Rz9+/a01AXA6h8O1sS1+jfgPebFNpde0k51Mbk/2R9pf++it portfolio manager+/Oyzbp1r/PF/bX+/84sI3ag546 w/1xw65h02/s5fw10vnlZ/vr84Vd/u5KwctMuh/7Hu3/vEef7+/R3+8eA/e0Ge7pP5rgGj/Rxo91ynqv MW2lZ7CtgM/I7/FKeodTl6A/I5C/kd/nKVv6+93S3+ +WgfyB/REstFl4jeeE/HWflFjCR0ic/w3XoHx1M2sC+sYWhxxH+t4nnLbLkmsAV9s+seF/tWfv9/fs/c WOjhWqV04dYhh56BZ+tWfvF/Zs/UsIKv1kr/dHG/Xo7gm5ef60/92pX51/9J6B/I38Pu/eqV9l/vqQ3/ aNvXp/tFfvF/bq/eBerW/pgT4Afh3R3wvRM+Qr8g3P RX8X+rsc+DT55H8Dupb5q+ue3awo1e/kD+20IF+Qj/1Df5iAl8qsbn9Z05Gt8zm8cW/6FyZKhx9HhfBh O/Xj2X215Tv1qWZ/O9++91/vvtxkv7YYf5t7+cxT6Il2y056BCIQ+RPlJ+LdszNZkEq1q+0b29q+sQ39 zfPBykd/83xQMr/5153j98nY2v5G40Vwdr/YsF/tPB +lKo2r9J25w/rVTSN/Ib/oJ2yV3pFeMquLxVg+7/e3t/68U7/Kue0b+Q7m3GD9mJ51G3ckoD/6vn9HtN K9cxztuCJ/nG4HHePpeGs4F//2Hb3f3+Eoj/5G+qFj7YQGYd/2vds+ucu/KlPZ158+wr99b/P4Z5BFnp Y00l77x5Ju8Q33jhM4wn7b5b5dYA3333S4KpDaf4e7 [file] LtfBHg1Fa2DejwV7poWeXrm7VDL1KgYxQP4D ID Date Data Source [id number] 02/06/2020 07:00:20 PM EDT [facility] [place], [place] [address]Tel# Surgical Pathology ReportAccession #:[id number](s) ReceivedA: Contents of femoral artery rightClinical Diagnosis and HistoryClaudication DIAGNOSISCONTENTS OF FEMORAL ARTERY, RIGHT: ATHEROSCLEROTIC PLAQUE (GROSS DIAGNOSIS). Gross DescriptionReceived in formalin, the specimen is labeled "contents of femoral arteryright" consists of fragmented white-johnson calcified atherosclerotic plaquemeasuring approximately 3-4 cm in aggregate. No sections submitted. Grossonly. jglgmm/gmm Reported: 02/06/2020Electronically Signed Out By Serjio Sandhu M.D. [facility], [place] [address]cysSrvfvxjxr component performed [facility], [address], [place], [address].[facility] at [facility], [address], [place], [address]. This report may includeimmunohistochemical or in-situ hybridization results. Testing wasdeveloped and the performance characteristics determined by [facility] as required by CLIA '88. The FDA hasdetermined that approval for specific use is not necessary for clinicaluse. The quality of Hematoxylin and Eosin stains and as applicable, forall immunohistochemical and/or special stains, including positive andnegative controls, were reviewed and considered appropriate.ICD codes I70.90CPT codesA: 68086O Name Value Range Interpretation Code Description Data Tisha rce(s) Supporting Document(s) ID Date Data Source [id number] 02/05/2020 08:43:15 AM EDT [facility] NGUYEN Name Value Range Interpretation Code Description Data Tisha rce(s) Supporting Document(s) POC NOVA GLU 284 mg/dL (70-99) H [facility] Duarte THOMPSON PERFORMED BY [facility] ID Date Data Source [id number] 02/11/2020 12:20:01 PM EDT [facility] kylie CEDILLO SPECIMEN DESCRIPTION PERIPHERAL 2SPECIAL REQUESTS NONECULTURE RESULTS NO GROWTH 6 DAYSREPORT STATUS FINAL 02/11/2020 Name Value Range Interpretation Code Description Data Tisha rce(s) Supporting Document(s) ID Date Data Source [id number] 02/11/2020 12:20:01 PM EDT [facility] NGUYEN SPECIMEN DESCRIPTION PERIPHERAL 1SPECIAL REQUESTS NONECULTURE RESULTS NO GROWTH 6 DAYSREPORT STATUS FINAL 02/11/2020 Name Value Range Interpretation Code Description Data Tisha rce(s) Supporting Document(s) ID Date Data Source [id number] 02/05/2020 08:59:02 AM EDT [facility] SPEC EXP DATE 02/08/2020PATI ENT ABO/Rh B NEGATIVEANTIBODY SCREEN NEGATIVETESTING SITE PERFORMED AT [address] [place], [place] [address]BLOOD BANK COMMENT BLOOD TYPE CONFIRMED. Name Value Range Interpretation Code Description Data Tisha rce(s) Supporting Document(s) TYPE AND SCREEN [facility] ID Date Data Source [id number] 02/05/2020 08:42:49 AM EDT [facility] Name Value Range Interpretation Code Description Data Tisha rce(s) Supporting Document(s) PT 10.3 s (9.2-11.9) [facility] INR 0.98 [facility] SUGGESTED THERAPEUTIC RANGES USING INR F ORSTABILIZED ANTICOAGULATED PATIENTS:STANDARD DOSE THERAPY INR 2.0-3.0 DVT, PE, PREVENT DVT OR EMBOLISMHIGH DOSE THERAPY INR 2.5-3.5 PREVENT EMBOLISM FROM MECHANICAL HEART VALVE ID Date Data Source [id number] 02/05/2020 08:42:49 AM EDT [facility] Name Value Range Interpretation Code Description Data Tisha rce(s) Supporting Document(s) APTT 33.5 s (22.0-34.3) [facility] ID Date Data Source [id number] 02/05/2020 08:03:38 AM EDT [facility] Name Value Range Interpretation Code Description Data Tisha rce(s) Supporting Document(s) SODIUM 137 mmol/L (136-145) [facility] POTASSIUM 4.0 mmol/L (3.6-5.2) [facility] CHLORIDE 103 mmol/L (100-108) [facility] CO2 25 mmol/L (22-31) [facility] ANION GAP 9 mmol/L (7-16) [facility] UREA NITROGEN 29 mg/dL (7-24) H [facility] CREATININE 1.27 mg/dL (0.60-1.00) H [facility] BUN/CREAT RATIO 22.8 RATIO (10.0-20.0) [facility] GLUCOSE 274 mg/dL (70-99) H [facility] CALCIUM 9.1 mg/dL (8.4-10.2) [facility] TOTAL PROTEIN 7.2 g/dL (6.4-8.2) [facility] ALBUMIN 3.3 g/dL (3.5-4.6) L [facility] GLOBULIN 3.9 g/dL (2.7-4.3) [facility] ALB/GLOB RATIO 0.8 RATIO [facility] ALKALINE PHOSPHATASE 162 U/L (45-117) H [facility] BILIRUBIN,TOTAL 0.3 mg/dL (0.0-1.0) [facility] PLEASE NOTE:Total bilirubin results may be falselyelevated in patients taking Eltrombopag. AST (SGOT) 13 U/L (11-39) [facility] ALT (SGPT) 15 U/L (12-78) [facility] GFR 44 ml/min/1.73m2 (>59) L [facility] GFR ( AMER) 53 ml/min/1.73m2 (>59) L [facility] GFR INTERPRETATION [facility] --NORMAL KIDNEY FUNCTION OR MILD DISEASE - GFR >OR= 60CHRONIC KIDNEY DISEASE - GFR 15 - 59RENAL FAILURE - GFR <15 Est. GFR calculation based on the MDRDstudy equation, which assumes a steadystate for creatinine. Est. GFR should notbe used for medication dosing. ID Date Data Source [id number] 02/05/2020 07:41:23 AM EDT [facility] Name Value Range Interpretation Code Description Data Tisha rce(s) Supporting Document(s) WBC 13.2 10*3/uL (4.1-11.0) H [facility] RBC 5.42 10*6/uL (4.00-5.40) H [facility] HGB 14.5 g/dL (12.0-16.0) [facility] HCT 43.7 % (36.0-47.0) [facility] MCV 80.6 fL (80.0-95.0) [facility] MCH 26.8 pg (27.0-32.0) L [facility] MCHC 33.3 g/dL (32.0-36.0) [facility] RDW 16.1 % (10.5-14.5) H [facility] PLT 306 10*3/uL (150-450) [facility] MPV 8.5 fL (7.1-10.7) [facility] ID Date Data Source [id number] 01/30/2020 01:22:46 PM EDT [facility]FORMATIONPatient [facility]N Name Date of Age Gend*PT [id number] Tatianna Soto 1965 54 years F ---PT Location Admission Date/Time Visit ID Attending Provider --- --- --- --- EPI ID CSN Admitting Provider [id number] ---[facility] [id number] [place] [address] [id number]: F: OFFICE CONSULTATIONDate: 01/30/20Patient: Tatianna SotoDOB: [id number] Physician: No ref. 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; Surgeon: Saba Smith MD; Location: [facility]; Service: Cardiac/Open Heart; Laterality: N/A; FOOT SURGERY GASTROSTOMY W/ FEEDING TUBE 2014 LEG SURGERY PEG W/TRACHEOSTOMY PLACEMENT 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 > 1000 in early 2015 TRACHEOSTOMY 2015 TUBAL LIGATIONFAMILY HISTORY:Family StatusRelation Name [...] file Gets together: Not on file Attends alevism service: Not on file Active member of [...] rce(s) Supporting Document(s) ID Date Data Source [id number] 01/05/2020 12:14:00 PM EDT [facility] ([facility]) Name Value Range Interpretation Code Description Data Tisha rce(s) Supporting Document(s) Gram Stain Laboratory test result Normal (applies to non-n umeric results) [facility] ([facility]) NO CELLS SEEN NO ORGANISMS SEEN Wound Culture Laboratory test result Normal (applies t o non-numeric results) [facility] ([facility]) <content>FULL REPORT IN LAB NOTES (eCW [...] 8 S</content>
<content></content> ID Date Data Source [id number] 12/30/2019 11:11:00 AM EDT [facility] ([facility]) Name Value Range Interpretation Code Description Data Tisha rce(s) Supporting Document(s) C reactive protein [Mass/volume] in Serum or Plasma by High sensitivity method 6.87 mg/dL 0.00-0.30 Above high normal [facility] ([facility]) <content>note:<nlbl:demographic_changed> </content>
<content></content> ID Date Data Source [id number] 12/30/2019 11:11:00 AM EDT [facility] ([facility]) Name Value Range Interpretation Code Description Data Tisha rce(s) Supporting Document(s) Glucose, Fasting 779 mg/dL 70-100 Above upper panic limits [facility] ([facility]) Blood Urea Nitrogen 28 mg/dL 7-18 Above high normal [facility] ([facility]) Creatinine For GFR 1.16 mg/dL 0.55-1.30 Normal (applies to non -numeric results) [facility] ([facility]) Glomerular Filtration Rate 52.2 Normal (applies to n on-numeric results) [facility] ([facility]) <content>Units are mL/min/1.73 m2</content>
<content></content>
<content>Chronic Kidney Disease Staging per NKF:</content>
<content></content>
<content>Stage I & II GFR >=60 Normal to Mildly Decreased</content>
<content>Stage III GFR 30- 59 Moderately Decreased</content>
<content>Stage IV GFR 15-29 Severely Decreased</content>
<content>Stage V GFR <15 Very Little GFR Left</content>
<content>ESRD GFR <15 on CEMETERY MANAGER</content>
<content></content> Sodium Level 126 meq/L 136-145 [facility]) Chloride Level 95 meq/L 98-107 Below low normal [facility] ([facility]) Carbon Dioxide Level 25 meq/L 21-32 Normal (applies to non-num denita results) [facility] ([facility]) Potassium Serum 6.5 meq/L 3.5-5.1 Above upper panic limits [facility] ([facility]) This specimen has an elevated potassium level but there is NO visible hemolysis noted. Anion Gap 6 meq/L 8-16 Below low normal [facility] ( [facility]) Ast/Sgot 16 U/L 7-37 Normal (applies to non-numeric resul ts) [facility] ([facility]) Calcium Level 9.5 mg/dL 8.5-10.1 Normal (applies to non-numeric re sults) [facility] ([facility]) Bilirubin,Total 0.2 mg/dL 0.2-1.0 Normal (applies to non-numeric results) [facility] ([facility]) Alt/SGPT 16 U/L 12-78 Normal (applies to non-numeric resul ts) [facility] ([facility]) Alkaline Phosphatase 188 U/L 45-117 Above high normal [facility] ([facility]) Total Protein 7.5 GM/DL 6.4-8.2 Normal (applies to non-numeric re sults) [facility] ([facility]) Albumin/Globulin Ratio 0.6 1.2-2.2 Below low normal [facility] ([facility]) Albumin 2.9 GM/DL 3.2-5.2 Below low normal [facility] ( [facility]) ID Date Data Source [id number] 12/30/2019 11:11:00 AM EDT [facility] ([facility]) Name Value Range Interpretation Code Description Data Tisha rce(s) Supporting Document(s) Erythrocyte sedimentation rate by Westergren method 32 mm/hr 0-30 Above high normal [facility] ([facility]) Lactate [Mass/volume] in Serum or Plasma 2.4 mmol/L 0.4-2.0 Above upper panic limits [facility] ([facility]) <content>note:<nlbl:demographic_changed> </content>
<content>Y/N query for Sepsis Lactate Rule: Y</content>
<content></content> ID Date Data Source [id number] 12/30/2019 11:11:00 AM EDT [facility] ([facility]) Name Value Range Interpretation Code Description Data Tisha rce(s) Supporting Document(s) White Blood Count 12.6 10 4.0-10.0 Above high normal [facility] Hematocrit 45.4 % 36.0-47.0 Normal (applies to non-numeric resul ts) [facility] ([facility]) Red Blood Count 5.21 10 4.00-5.40 Normal (applies to non-numeric results) [facility] ([facility]) Hemoglobin 13.9 g/dL 12.0-15.5 Normal (applies to non-numeric resul ts) [facility] ([facility]) Mean Corpuscular HGB Conc 30.6 g/dL 32.0-36.5 Below low normal [facility] ([facility]) Mean Corpuscular Hemoglobin 26.7 pg 27.0-33.0 Below low normal [facility] ([facility]) Mean Corpuscular Volume 87.1 fl 80.0-96.0 Normal ( applies to non-numeric results) [facility] ([facility]) Red Cell Distribution Width 14.4 % 11.5-14.5 Norm al (applies to non-numeric results) [facility] ([facility]) Neutrophils % 85.1 % 36.0-66.0 Above high normal [facility] ([facility]) Platelet Count, Automated 375 10 150-450 Normal (applies to non-numeric results) [facility] ([facility]) Luce % 3.5 % 0.0-5.0 Normal (applies to non-numeric resul ts) [facility] ([facility]) Eos % 0.3 % 0.0-3.0 Normal (applies to non-numeric resul ts) [facility] ([facility]) Lymph % 10.2 % 24.0-44.0 Below low normal [facility] ( [facility]) Baso % 0.6 % 0.0-1.0 Normal (applies to non-numeric resul ts) [facility] ([facility]) Nucleated Red Blood Cell % 0.0 % 0-0 Normal (applies to n on-numeric results) [facility] ([facility]) Immature Granulocyte % 0.3 % 0-3.0 Normal (applies to non-n umeric results) [facility] ([facility]) Neutrophils # 10.7 10 1.5-8.5 Above high normal [facility] ([facility]) Eos # 0.0 10 0.0-0.5 Normal (applies to non-numeric resul ts) [facility] ([facility]) Lymph # 1.3 10 1.5-5.0 Below low normal [facility] ( [facility]) Luce # 0.4 10 0.0-0.8 Normal (applies to non-numeric resul ts) [facility] ([facility]) Baso # 0.1 10 0.0-0.2 Normal (applies to non-numeric resul ts) [facility] ([facility]) ID Date Data Source [id number] 12/30/2019 11:11:00 AM EDT [facility] ([facility]) Name Value Range Interpretation Code Description Data Tisha rce(s) Supporting Document(s) Venous Partial Pressure Co2 50.0 mmHg 38.0-50.0 Norm al (applies to non-numeric results) [facility] ([facility]) Venous PH 7.328 units 7.330-7.430 Below low normal [facility] ([facility]) Venous Total Co2 27.2 meq/L 24.0-28.0 Normal (applies to non-numeric results) [facility] ([facility]) Venous Partial Pressure O2 55.8 mmHg 30.0-50.0 Above high normal [facility] ([facility]) Venous Hco3 25.7 meq/L 23.0-27.0 Normal (applies to non-numeric resu lts) [facility] ([facility]) Venous Standard Hco3 23.5 meq/L Normal (applies to non-num denita results) [facility] ([facility]) Venous O2 Saturation 88.1 % 60.0-80.0 Above high normal [facility] ([facility]) Venous Base Excess -1.0 Normal (applies to non-numer ic results) [facility] ([facility]) ID Date Data Source [id number] 12/29/2019 11:00:00 AM EDT [facility] Name Value Range Interpretation Code Description Data Tisha rce(s) Supporting Document(s) SARS coronavirus 2 RNA [facility] This lab was ordered by [facility] and reported by [facility]. ID Date Data Source [id number] 12/28/2019 09:54:00 AM EDT [facility] ([facility]) Name Value Range Interpretation Code Description Data Tisha rce(s) Supporting Document(s) Laboratory test finding (navigational concept) 41.0 % 3 8.0-51.0 Normal (applies to non-numeric results) [facility] ([facility]) Laboratory test finding (navigational concept) 135 meq/L 1 36-145 Below low normal [facility] ([facility]) Laboratory test finding (navigational concept) 4.3 meq/L 3 .5-5.1 Normal (applies to non-numeric results) [facility] ([facility]) Laboratory test finding (navigational concept) 206 mg/dL 7 0-105 Above high normal [facility] ([facility]) Laboratory test finding (navigational concept) 25.0 MM/L 2 3.0-27.0 Normal (applies to non-numeric results) [facility] ([facility]) Laboratory test finding (navigational concept) 4.8 mg/dL 4 .5-5.3 Normal (applies to non-numeric results) [facility] ([facility]) Laboratory test finding (navigational concept) 38 mg/dL 8-26 Above high normal [facility] ([facility]) Laboratory test finding (navigational concept) 100 meq/L 9 8-109 Normal (applies to non-numeric results) [facility] ([facility]) Laboratory test finding (navigational concept) 1.4 mg/dL 0 .6-1.3 Above high normal [facility] ([facility]) ID Date Data Source [id number] 12/27/2019 01:50:00 PM EDT [facility] ([facility] Name Value Range Interpretation Code Description Data Tisha rce(s) Supporting Document(s) Blood Urea Nitrogen 36 mg/dL 7-18 Above high normal [facility] ([facility] Glucose, Fasting 71 mg/dL 70-100 [facility] [...] Little GFR Left</content>
<content>ESRD GFR <15 on CEMETERY MANAGER</content>
<content></content> Creatinine For GFR 1.87 mg/dL 0.55-1.30 Above high normal [facility] ([facility] Chloride Level 100 meq/L 98-107 [facility] ([facility] Potassium Serum 4.3 meq/L 3.5-5.1 [facility] ([facility] Calcium Level 8.7 mg/dL 8.5-10.1 [facility] ([facility] Anion Gap 8 meq/L 8-16 [facility] Carbon Dioxide Level 25 meq/L 21-32 [facility] ID Date Data Source [id number] 12/27/2019 01:50:00 PM EDT [facility] ([facility] Name Value Range Interpretation Code Description Data Tisha rce(s) Supporting Document(s) White Blood Count 13.7 10 4.0-10.0 Above high normal [facility] ([facility] Red Blood Count 5.17 10 4.00-5.40 [facility] ([facility] Hemoglobin 13.9 g/dL 12.0-15.5 [facility] ([facility] Hematocrit 43.5 % 36.0-47.0 [facility] ([facility] Mean Corpuscular Volume 84.1 fl 80.0-96.0 M [facility] ([facility] Mean Corpuscular Hemoglobin 26.9 pg 27.0-33.0 [facility] Mean Corpuscular HGB Conc 32.0 g/dL 32.0-36.5 [facility] ([facility] Platelet Count, Automated 337 10 150-450 [facility] ([facility] Red Cell Distribution Width 13.9 % 11.5-14.5 [facility] ([facility] Nucleated Red Blood Cell % 0.0 % 0-0 [facility] ID Date Data Source [id number] 12/27/2019 01:50:00 PM EDT [facility] ([facility]) Name Value Range Interpretation Code Description Data Tisha rce(s) Supporting Document(s) White Blood Count 13.7 10 4.0-10.0 Above high normal [facility] ([facility]) Hematocrit 43.5 % 36.0-47.0 Normal (applies to non-numeric resul ts) [facility] ([facility]) Hemoglobin 13.9 g/dL 12.0-15.5 Normal (applies to non-numeric resul ts) [facility] ([facility]) Mean Corpuscular Volume 84.1 fl 80.0-96.0 Normal ( applies to non-numeric results) [facility] ([facility]) Red Blood Count 5.17 10 4.00-5.40 Normal (applies to non-numeric results) [facility] ([facility]) Mean Corpuscular HGB Conc 32.0 g/dL 32.0-36.5 Normal (applies to non-numeric results) [facility] ([facility]) Red Cell Distribution Width 13.9 % 11.5-14.5 Norm al (applies to non-numeric results) [facility] ([facility]) Mean Corpuscular Hemoglobin 26.9 pg 27.0-33.0 Below low normal [facility] ([facility]) Platelet Count, Automated 337 10 150-450 Normal (applies to non-numeric results) [facility] ([facility]) Nucleated Red Blood Cell % 0.0 % 0-0 Normal (applies to n on-numeric results) [facility] ([facility]) ID Date Data Source [id number] 12/27/2019 01:50:00 PM EDT [facility] ([facility]) Name Value Range Interpretation Code Description Data Tisha rce(s) Supporting Document(s) Blood Urea Nitrogen 36 mg/dL 7-18 Above high normal [facility] ([facility]) Creatinine For GFR 1.87 mg/dL 0.55-1.30 Above high normal [facility] ([facility]) Glucose, Fasting 71 mg/dL 70-100 Normal (applies to non-numeric results) [facility] ([facility]) Glomerular Filtration Rate 30.1 Below low normal [facility] ([facility]) <content>Units are mL/min/1.73 m2</content>
<content></content>
<content>Chronic Kidney Disease Staging per NKF:</content>
<content></content>
<content>Stage I & II GFR >=60 Normal to Mildly Decreased</content>
<content>Stage III GFR 30- 59 Moderately Decreased</content>
<content>Stage IV GFR 15-29 Severely Decreased</content>
<content>Stage V GFR <15 Very Little GFR Left</content>
<content>ESRD GFR <15 on CEMETERY MANAGER</content>
<content></content> Sodium Level 133 meq/L 136-145 Below low normal [facility] ([facility]) Potassium Serum 4.3 meq/L 3.5-5.1 Normal (applies to non-numeric results) [facility] ([facility]) Anion Gap 8 meq/L 8-16 Normal (applies to non-numeric resul ts) [facility] ([facility]) Chloride Level 100 meq/L 98-107 Normal (applies to non-numeric r esults) [facility] ([facility]) Carbon Dioxide Level 25 meq/L 21-32 Normal (applies to non-num denita results) [facility] ([facility]) Calcium Level 8.7 mg/dL 8.5-10.1 Normal (applies to non-numeric re sults) [facility] ([facility]) ID Date Data Source [id number] 12/27/2019 01:40:00 PM EDT [facility] ([facility]) Name Value Range Interpretation Code Description Data Tisha rce(s) Supporting Document(s) Natriuretic peptide.B prohormone N-Terminal [Mass/volu me] in Serum or Plasma 211 pg/mL Above high normal [facility] ([facility]) <content>note:<nlbl:demographic_changed> </content>
<content></content> ID Date Data Source [id number] 12/27/2019 01:40:00 PM EDT [facility] ([facility]) Name Value Range Interpretation Code Description Data Tisha rce(s) Supporting Document(s) Malb Urine Siemens 22.2 mg/L Normal (applies to non-numer ic results) [facility] ([facility]) Creatinine, Urine 195.0 mg/dL Normal (applies to non-numer ic results) [facility] ([facility]) Kevny/Creat Ratio 11.3 MCG/MG 0.0-30.0 Normal (applies to non-numeric results) [facility] ([facility]) THE [employer] STATES THAT MICROALBUMINURIA IS PRESENT IF THE MICROALBUMIN/CREATININE RATIO EXCEEDS 30 MCG/MG. THE THRESHOLD FOR CLINICAL ALBUMINURIA IS REACHED AT 300 MCG/MG. THE CLASSIFICATION OF A PATIENT SHOULD BE BASED UPON AT LEAST 2 OF 3 ABNORMAL RESULTS ON SPECIMENS COLLECTED WITHIN A 3 TO 6 MONTH TIME FRAME. ID Date Data Source [id number] 12/27/2019 01:40:00 PM EDT [facility] ([facility]) Name Value Range Interpretation Code Description Data Tisha rce(s) Supporting Document(s) Hemoglobin A1c 9.1 % Normal (applies to non-numeric r esults) [facility] ([facility]) <content>REFERENCE RANGES:</content><br/ ><content></content>
<content><=5.6% NORMAL</content>
<content>5.7-6.4% SUGGESTS IMPAIRED GLUCOSE METABOLISM/PREDIABETIC</content>
<content>>= 6.5% ABNORMAL</content>
<content></content> Estimated Average Glucose 214 mg/dL 60-110 Above high normal [facility] ([facility]) ID Date Data Source [id number] 12/27/2019 01:40:00 PM EDT [facility] ([facility]) Name Value Range Interpretation Code Description Data Tisha rce(s) Supporting Document(s) Red Blood Count 5.19 10 4.00-5.40 Normal (applies to non-numeric results) [facility] ([facility]) White Blood Count 13.9 10 4.0-10.0 Above high normal [facility] ([facility]) Hemoglobin 14.0 g/dL 12.0-15.5 Normal (applies to non-numeric resul ts) [facility] ([facility]) Hematocrit 43.7 % 36.0-47.0 Normal (applies to non-numeric resul ts) [facility] ([facility]) Mean Corpuscular Volume 84.2 fl 80.0-96.0 Normal ( applies to non-numeric results) [facility] ([facility]) Mean Corpuscular Hemoglobin 27.0 pg 27.0-33.0 Norm al (applies to non-numeric results) [facility] ([facility]) Red Cell Distribution Width 13.8 % 11.5-14.5 Norm al (applies to non-numeric results) [facility] ([facility]) Mean Corpuscular HGB Conc 32.0 g/dL 32.0-36.5 Normal (applies to non-numeric results) [facility] ([facility]) Platelet Count, Automated 310 10 150-450 Normal (applies to non-numeric results) [facility] ([facility]) Neutrophils % 67.6 % 36.0-66.0 Above high normal [facility] ([facility]) Lymph % 24.0 % 24.0-44.0 Normal (applies to non-numeric resul ts) [facility] ([facility]) Eos % 1.9 % 0.0-3.0 Normal (applies to non-numeric resul ts) [facility] ([facility]) Baso % 0.6 % 0.0-1.0 Normal (applies to non-numeric resul ts) [facility] ([facility]) Luce % 5.1 % 0.0-5.0 Above high normal [facility] ([facility]) Immature Granulocyte % 0.8 % 0-3.0 Normal (applies to non-n umeric results) [facility] ([facility]) Nucleated Red Blood Cell % 0.0 % 0-0 Normal (applies to n on-numeric results) [facility] ([facility]) Neutrophils # 9.4 10 1.5-8.5 Above high normal [facility] ([facility]) Luce # 0.7 10 0.0-0.8 Normal (applies to non-numeric resul ts) [facility] ([facility]) Eos # 0.3 10 0.0-0.5 Normal (applies to non-numeric resul ts) [facility] ([facility]) Lymph # 3.3 10 1.5-5.0 Normal (applies to non-numeric resul ts) [facility] ([facility]) Baso # 0.1 10 0.0-0.2 Normal (applies to non-numeric resul ts) [facility] ([facility]) ID Date Data Source [id number] 12/27/2019 01:40:00 PM EDT [facility] ([facility]) Name Value Range Interpretation Code Description Data Tisha rce(s) Supporting Document(s) Blood Urea Nitrogen 37 mg/dL 7-18 Above high normal [facility] ([facility]) Glucose, Fasting 73 mg/dL 70-100 Normal (applies to non-numeric results) [facility] ([facility]) Creatinine For GFR 1.92 mg/dL 0.55-1.30 Above high normal [facility] ([facility]) Sodium Level 132 meq/L 136-145 Below low normal [facility] ([facility]) Potassium Serum 4.3 meq/L 3.5-5.1 Normal (applies to non-numeric results) [facility] ([facility]) Glomerular Filtration Rate 29.2 Below low normal [facility] ([facility]) <content>Units are mL/min/1.73 m2</content>
<content></content>
<content>Chronic Kidney Disease Staging per NKF:</content>
<content></content>
<content>Stage I & II GFR >=60 Normal to Mildly Decreased</content>
<content>Stage III GFR 30- 59 Moderately Decreased</content>
<content>Stage IV GFR 15-29 Severely Decreased</content>
<content>Stage V GFR <15 Very Little GFR Left</content>
<content>ESRD GFR <15 on CEMETERY MANAGER</content>
<content></content> Carbon Dioxide Level 24 meq/L 21-32 Normal (applies to non-num denita results) [facility] ([facility]) Anion Gap 6 meq/L 8-16 Below low normal [facility] ( [facility]) Chloride Level 102 meq/L 98-107 Normal (applies to non-numeric r esults) [facility] ([facility]) Ast/Sgot 16 U/L 7-37 Normal (applies to non-numeric resul ts) [facility] ([facility]) Calcium Level 8.7 mg/dL 8.5-10.1 Normal (applies to non-numeric re sults) [facility] ([facility]) Alt/SGPT 19 U/L 12-78 Normal (applies to non-numeric resul ts) [facility] ([facility]) Alkaline Phosphatase 163 U/L 45-117 Above high normal [facility] ([facility]) Bilirubin,Total 0.2 mg/dL 0.2-1.0 Normal (applies to non-numeric results) [facility] ([facility]) Total Protein 7.0 GM/DL 6.4-8.2 Normal (applies to non-numeric re sults) [facility] ([facility]) Albumin 2.9 GM/DL 3.2-5.2 Below low normal [facility] ( [facility]) Albumin/Globulin Ratio 0.7 1.2-2.2 Below low normal [facility] ([facility]) ID Date Data Source [id number] 12/27/2019 01:40:00 PM EDT [facility] ([facility]) Name Value Range Interpretation Code Description Data Tisha rce(s) Supporting Document(s) Cholesterol Level 159 mg/dL Normal (applies to non-numeri c results) [facility] ([facility]) Triglycerides Level 294 mg/dL Above high normal [facility] ([facility]) HDL Cholesterol 39 mg/dL Below low normal [facility] ([facility]) Non-HDL-C 120 mg/dL Normal (applies to non-numeric resul ts) [facility] ([facility]) LDL Cholesterol 61 mg/dL Normal (applies to non-numeric results) [facility] Cholesterol Risk Ratio 4.076 Normal (applies to non-n umeric results) [facility] ([facility]) ID Date Data Source [id number] 12/08/2019 06:58:55 AM EDT [facility] INFORMATIONPatient MRN Name Date of Age Gend*PT [id number] Tatianna Soto 1965 54 years F EDPT Location Admission Date/Time Visit ID Attending Provider --- --- --- --- EPI ID CSN Admitting Provider [id number] ---Attestation signed by Yohan Sal MD at 12/08/2019 6:58 AMMid Level Attestation: SUPERVISED APC: Based on the medical record the careappears appropriate ED Provider in Triage Megan [id number] HPI: Patient is a 54 y/o female who presents to the ED with central CP x 2weeks. History of [place] s/p CABG in 2016. Takes Plavix. Smokes 1 PPDPhysical exam:Patient seated in whee lchairPositive Cervantes's signTachycardic in triagePreliminary Plan:Labs, EKG, troponin, CTAVitals: 12/07/19 1916BP: 96/64Pulse: 114Resp: 18Temp: 99 FSpO2: 96%ED GLENIS Coyne12/07/19 1923Kanalisa Jonelle, 12/08/19 0658 Name Value Range Interpretation Code Description Data Tisha rce(s) Supporting Document(s) ID Date Data Source [id number] 12/08/2019 06:48:[address] [facility] Name Value Range Interpretation Code Description Data Tisha rce(s) Supporting Document(s) EKG [facility] [id number] [file] [id number] ID Date Data Source [id number] 12/07/2019 08:42:59 PM EDT [address] [address]Jvzvyzo Name: TATIANNA SOTOB: 1965Sex: FOrdering Provider: ROSAS Pena Prov: ROSAS Dodd Provider: Procedure Performed: CT ANGIOGRAM CHESTExam Date: 12/07/2019 20:34MRN: [id number] Number: [id number] Class: EmergencyAccount #: [id number] for Exam: CP x 2 weeks, tachy, [...] DELIA VILLELA On 12/07/2019 8:42 PMWorkstation ID: [id number] Name Value Range Interpretation Code Description Data Tisha rce(s) Supporting Document(s) ID Date Data Source [id number] 12/07/2019 08:03:27 PM EDT [facility] Name Value Range Interpretation Code Description Data Tisha rce(s) Supporting Document(s) POC CTNI <0.01 ng/mL (0.01-0.07) L [facility] Less than 0.08: Myocardial injury unlike lyGreater than or equal to 0.08: Highlysuggestive of myocardial injuryCorrelation with rise and/or fall ofserial troponins, clinical symptoms,and ECG changes is necessary.PERFORMED BY [facility] CLINICAL STAFF ID Date Data Source [id number] 12/07/2019 08:26:31 PM EDT [facility] Name Value Range Interpretation Code Description Data Tisha rce(s) Supporting Document(s) NT PRO BNP 189 pg/mL (0-125) H [facility] ID Date Data Source [id number] 12/07/2019 08:19:55 PM EDT [facility] Name Value Range Interpretation Code Description Data Tisha rce(s) Supporting Document(s) MAGNESIUM 2.4 mg/dL (1.7-2.4) [facility] ID Date Data Source [id number] 12/07/2019 08:19:55 PM EDT [facility] Name Value Range Interpretation Code Description Data Tisha rce(s) Supporting Document(s) SODIUM 134 mmol/L (136-145) L [facility] POTASSIUM 4.2 mmol/L (3.6-5.2) [facility] CHLORIDE 100 mmol/L (100-108) [facility] CO2 25 mmol/L (22-31) [facility] ANION GAP 9 mmol/L (7-16) [facility] UREA NITROGEN 24 mg/dL (7-24) [facility] CREATININE 1.17 mg/dL (0.60-1.00) H [facility] BUN/CREAT RATIO 20.5 RATIO (10.0-20.0) H [facility] GLUCOSE 339 mg/dL (70-99) H [facility] CALCIUM 9.9 mg/dL (8.4-10.2) [facility] GFR 49 ml/min/1.73m2 (>59) L [facility] GFR ( AMER) 59 ml/min/1.73m2 (>59) L [facility] GFR INTERPRETATION [facility] --NORMAL KIDNEY FUNCTION OR MILD DISEASE - GFR >OR= 60CHRONIC KIDNEY DISEASE - GFR 15 - 59RENAL FAILURE - GFR <15 Est. GFR calculation based on the MDRDstudy equation, which assumes a steadystate for creatinine. Est. GFR should notbe used for medication dosing. ID Date Data Source [id number] 12/07/2019 08:16:10 PM EDT [facility] Name Value Range Interpretation Code Description Data Tisha rce(s) Supporting Document(s) APTT 24.9 s (22.0-34.3) [facility] ID Date Data Source [id number] 12/07/2019 08:16:10 PM EDT [facility] Name Value Range Interpretation Code Description Data Tisha rce(s) Supporting Document(s) PT 10.1 s (9.2-11.9) [facility] INR 0.96 [facility] SUGGESTED THERAPEUTIC RANGES USING INR F ORSTABILIZED ANTICOAGULATED PATIENTS:STANDARD DOSE THERAPY INR 2.0-3.0 DVT, PE, PREVENT DVT OR EMBOLISMHIGH DOSE THERAPY INR 2.5-3.5 PREVENT EMBOLISM FROM MECHANICAL HEART VALVE ID Date Data Source [id number] 12/07/2019 08:06:44 PM EDT [facility] Name Value Range Interpretation Code Description Data Tisha rce(s) Supporting Document(s) WBC 12.3 10*3/uL (4.1-11.0) H [facility] RBC 5.85 10*6/uL (4.00-5.40) H [facility] HGB 15.7 g/dL (12.0-16.0) [facility] HCT 48.4 % (36.0-47.0) H [facility] MCV 82.8 fL (80.0-95.0) [facility] MCH 26.8 pg (27.0-32.0) L [facility] MCHC 32.4 g/dL (32.0-36.0) [facility] RDW 15.1 % (10.5-14.5) H [facility] PLT 348 10*3/uL (150-450) [facility] MPV 8.1 fL (7.1-10.7) [facility] NEUT % 70.6 % (35.0-75.0) [facility] LYMPH % 19.5 % (16.0-52.0) [facility] MONO % 6.4 % (0.0-8.0) [facility] EOS % 3.2 % (0.0-5.0) [facility] BASO % 0.3 % (0.0-4.0) [facility] NEUT # 8.7 10*3/uL (1.8-7.7) H [facility] LYMPH # 2.4 10*3/uL (1.2-4.8) [facility] MONO # 0.8 10*3/uL (0.0-0.8) [facility] Eosinophils [#/volume] in Blood by Automated count 0.4 10*3/uL (0.0-0 .5) [facility] BASO # 0.0 10*3/uL (0.0-0.2) [facility] ID Date Data Source [id number] 11/08/2019 01:12:00 PM EDT [facility] ([facility]) Name Value Range Interpretation Code Description Data Tisha rce(s) Supporting Document(s) Laboratory test finding (navigational concept) 44.0 % 3 8.0-51.0 Normal (applies to non-numeric results) [facility] ([facility]) Laboratory test finding (navigational concept) 178 mg/dL 7 0-105 Above high normal [facility] ([facility]) Laboratory test finding (navigational concept) 140 meq/L 1 36-145 Normal (applies to non-numeric results) [facility]) Laboratory test finding (navigational concept) 4.7 mg/dL 4 .5-5.3 Normal (applies to non-numeric results) [facility] ([facility]) Laboratory test finding (navigational concept) 3.8 meq/L 3 .5-5.1 Normal (applies to non-numeric results) [facility] ([facility]) Laboratory test finding (navigational concept) 102 meq/L 9 8-109 Normal (applies to non-numeric results) [facility] ([facility]) Laboratory test finding (navigational concept) 17 mg/dL 8 -26 Normal (applies to non-numeric results) [facility] ([facility]) Laboratory test finding (navigational concept) 30.0 MM/L 2 3.0-27.0 Above high normal [facility] ([facility]) Laboratory test finding (navigational concept) 0.7 mg/dL 0 .6-1.3 Normal (applies to non-numeric results) [facility] ([facility]) ID Date Data Source [id number] 11/08/2019 01:11:00 PM EDT [facility] ([facility]) Name Value Range Interpretation Code Description Data Tisha rce(s) Supporting Document(s) Venous PH 7.352 units 7.330-7.430 Normal (applies to non-numeric res ults) [facility] ([facility]) Venous Partial Pressure Co2 56.7 mmHg 38.0-50.0 Above high normal [facility] ([facility]) Venous Partial Pressure O2 36.1 mmHg 30.0-50.0 Nellie l (applies to non-numeric results) [facility] ([facility]) Venous Total Co2 32.5 meq/L 24.0-28.0 Above high normal [facility] Venous Standard Hco3 27.0 meq/L Normal (applies to non-num denita results) [facility] ([facility]) Venous Hco3 30.7 meq/L 23.0-27.0 Above high normal [facility] ([facility]) Venous Base Excess 3.6 Above high normal [facility] ([facility]) Venous O2 Saturation 69.2 % 60.0-80.0 Normal (applies to non-num denita results) [facility] ([facility]) ID Date Data Source [id number] 11/08/2019 01:11:00 PM EDT [facility] ([facility]) Name Value Range Interpretation Code Description Data Tisha rce(s) Supporting Document(s) White Blood Count 10.9 10 4.0-10.0 Above high normal [facility] ([facility]) Red Blood Count 5.11 10 4.00-5.40 Normal (applies to non-numeric results) [facility] ([facility]) Hemoglobin 14.0 g/dL 12.0-15.5 Normal (applies to non-numeric resul ts) [facility] ([facility]) Mean Corpuscular HGB Conc 31.9 g/dL 32.0-36.5 Below low [facility] Hematocrit 43.9 % 36.0-47.0 Normal (applies to non-numeric resul ts) [facility] ([facility]) Mean Corpuscular Hemoglobin 27.4 pg 27.0-33.0 Norm al (applies to non-numeric results) [facility] ([facility]) Mean Corpuscular Volume 85.9 fl 80.0-96.0 Normal ( applies to non-numeric results) [facility] Red Cell Distribution Width 13.4 % 11.5-14.5 Norm al (applies to non-numeric results) [facility] ([facility]) Platelet Count, Automated 281 10 150-450 Normal (applies to non-numeric results) [facility] ([facility]) Neutrophils % 71.9 % 36.0-66.0 Above high normal [facility] ([facility]) Eos % 3.4 % 0.0-3.0 Above high normal [facility] ([facility]) Lymph % 17.4 % 24.0-44.0 Below low normal [facility] ( [facility]) Luce % 6.3 % 0.0-5.0 Above high normal [facility] ([facility]) Baso % 0.6 % 0.0-1.0 Normal (applies to non-numeric resul ts) [facility] ([facility]) Immature Granulocyte % 0.4 % 0-3.0 Normal (applies to non-n umeric results) [facility] ([facility]) Nucleated Red Blood Cell % 0.0 % 0-0 Normal (applies to n on-numeric results) [facility] ([facility]) Neutrophils # 7.8 10 1.5-8.5 Normal (applies to non-numeric re sults) [facility] ([facility]) Luce # 0.7 10 0.0-0.8 Normal (applies to non-numeric resul ts) [facility] ([facility]) Lymph # 1.9 10 1.5-5.0 Normal (applies to non-numeric resul ts) [facility] ([facility]) Eos # 0.4 10 0.0-0.5 Normal (applies to non-numeric resul ts) [facility] ([facility]) Baso # 0.1 10 0.0-0.2 Normal (applies to non-numeric resul ts) [facility] ([facility]) ID Date Data Source [id number] 11/08/2019 01:11:00 PM EDT [facility] ([facility]) Name Value Range Interpretation Code Description Data Tisha rce(s) Supporting Document(s) Inr 1.02 Normal (applies to non-numeric resul ts) [facility] ([facility]) THERAPUTIC HUMAN INR VALUES INDICATIONS NORMAL RANGES PROPHYLAXIS/TREATMENT OF: VENOUS THROMBOSIS 2.0-3.0 PULMONARY EMBOLISM 2.0-3.0 PREVENTION OF SYSTEMIC EMBOLISM FROM: TISSUE HEART VALVES 2.0-3.0 ACUTE MYOCARDIAL INFARCTION 2.0-3.0 VALVULAR HEART DISEASE 2.0-3.0 ATRIAL FIBRILLATION 2.0-3.0 MECHANICAL VALVES(HIGH RISK) 2.5-3.5 RECURRENT MYOCARDIAL INFARCTION 2.5-3.5 Prothrombin Time 13.1 s 11.8-14.0 Normal (applies to non-numeric results) [facility] ([facility]) ID Date Data Source [id number] 11/08/2019 01:11:00 PM EDT [facility] ([facility]) Name Value Range Interpretation Code Description Data Tisha rce(s) Supporting Document(s) Lactate [Mass/volume] in Serum or Plasma 1.2 mmol/L 0.4-2.0 Normal (applies to non-numeric results) [facility]) <content>note:<nlbl:demographic_changed> </content>
<content>Y/N query for Sepsis Lactate Rule: Y</content>
<content></content> ID Date Data Source [id number] 11/08/2019 01:11:00 PM EDT [facility] ([facility]) Name Value Range Interpretation Code Description Data Tisha rce(s) Supporting Document(s) CPK Creatine Phosphokinase 26 U/L 26-192 Nellie l (applies to non-numeric results) [facility] ([facility]) MB/CK Relative Index 3.85 Normal (applies to non-num denita results) [facility] ([facility]) <content>DIAGNOSIS CRITERIA</content>
<content>MMB ng/ml Relative Index (RI)</content>
<content>NON-AMI < or = 5 N/A</content>
<content>DICKERSON ZONE > 5 < or = 4</content>
<content>AMI > 5 > 4</content>
<content></content> CK-MB Value Mass 1.0 ng/mL Normal (applies to non-numeric results) [facility] ([facility]) Troponin I Laboratory test result Normal (applies to non-n umeric results) [facility] ([facility]) <content>Troponin I Reference Interval f or Siemens [place] LOCI:</content>
<content></content>
<content>99th Percentile= 0.00-0.045 ng/ml</content>
<content></content>
<content>Risk Stratification:</content>
<content><= 0.10 ng/ml Decreased Risk for Adverse Clinical</content>
<content>Events.</content>
<content>0.10-1.50 ng/ml Increased Risk for Adverse Clinical</content>
<content>Events. Evaluation of additional</content>
<content>criterion and/or repeat testing in 2-6</content>
<content>hours is suggested to rule out myocardial</content>
<content>damage.</content>
<content>>= 1.50 ng/ml Indicative of Myocardial Injury.</content>
<content></content> ID Date Data Source [id number] 11/08/2019 01:11:00 PM EDT [facility] ([facility]) Name Value Range Interpretation Code Description Data Tihsa rce(s) Supporting Document(s) Blood Urea Nitrogen 15 mg/dL 7-18 Normal (applies to non-nume yogesh results) [facility] ([facility]) Glucose, Fasting 169 mg/dL 70-100 Above high normal [facility]) Creatinine For GFR 0.81 mg/dL 0.55-1.30 Normal (applies to non -numeric results) [facility] ([facility]) Glomerular Filtration Rate Laboratory test result Normal (applies to non- numeric results) [facility]) <content>Units are mL/min/1.73 m2</content>
<content></content>
<content>Chronic Kidney Disease Staging per NKF:</content>
<content></content>
<content>Stage I & II GFR >=60 Normal to Mildly Decreased</content>
<content>Stage III GFR 30- 59 Moderately Decreased</content>
<content>Stage IV GFR 15-29 Severely Decreased</content>
<content>Stage V GFR <15 Very Little GFR Left</content>
<content>ESRD GFR <15 on CEMETERY MANAGER</content>
<content></content> Potassium Serum 3.9 meq/L 3.5-5.1 Normal (applies to non-numeric results) [facility] ([facility]) Sodium Level 142 meq/L 136-145 Normal (applies to non-numeric res ults) [facility] ([facility]) Chloride Level 105 meq/L 98-107 Normal (applies to non-numeric r esults) [facility] ([facility]) Anion Gap 6 meq/L 8-16 Below low normal [facility] ( [facility]) Carbon Dioxide Level 31 meq/L 21-32 Normal (applies to non-num denita results) [facility] ([facility]) Calcium Level 9.3 mg/dL 8.5-10.1 Normal (applies to non-numeric re sults) [facility] ([facility]) ID Date Data Source [id number] 11/08/2019 01:11:00 PM EDT [facility] ([facility]) Name Value Range Interpretation Code Description Data Tisha rce(s) Supporting Document(s) Thyrotropin [Units/volume] in Serum or Plasma 2.260 uIU/ML 0. 358-3.740 Normal (applies to non-numeric results) [facility] ([facility]) <content>note:<nlbl:demographic_changed> </content>
<content></content> ID Date Data Source [id number] 11/07/2019 09:30:00 AM EDT [facility] ([facility]) Name Value Range Interpretation Code Description Data Tisha rce(s) Supporting Document(s) Glucose [Mass/volume] in Capillary blood by Glucometer 176 mg/dL 70-105 Above high normal [facility] ([facility]) ID Date Data Source [id number] 11/07/2019 09:30:00 AM EDT [facility] ([facility] ) Name Value Range Interpretation Code Description Data Tisha rce(s) Supporting Document(s) Glucose [Mass/volume] in Capillary blood by Glucometer 176 mg/dL 70-105 Above high normal [facility] ([facility] ) ID Date Data Source [id number] 11/07/2019 06:55:00 AM EDT [facility] ([facility]) Name Value Range Interpretation Code Description Data Tisha rce(s) Supporting Document(s) Glucose [Mass/volume] in Capillary blood by Glucometer 292 mg/dL 70-105 Above high normal [facility] ([facility]) ID Date Data Source [id number] 11/07/2019 06:55:00 AM EDT [facility] ([facility] ) Name Value Range Interpretation Code Description Data Tisha rce(s) Supporting Document(s) Glucose [Mass/volume] in Capillary blood by Glucometer 292 mg/dL 70-105 Above high normal [facility] ([facility] ) ID Date Data Source [id number] 11/05/2019 06:03:00 AM EDT [facility] ([facility]) Name Value Range Interpretation Code Description Data Tisha rce(s) Supporting Document(s) Glucose [Mass/volume] in Capillary blood by Glucometer 80 mg/dL 70-105 Normal (applies to non-numeric results) [facility] ([facility]) ID Date Data Source [id number] 11/05/2019 05:06:00 AM EDT [facility] ([facility]) Name Value Range Interpretation Code Description Data Tisha rce(s) Supporting Document(s) Glucose [Mass/volume] in Capillary blood by Glucometer 123 mg/dL 70-105 Above high normal [facility] ([facility]) ID Date Data Source [id number] 11/05/2019 02:48:00 AM EDT [facility] ([facility]) Name Value Range Interpretation Code Description Data Tisha rce(s) Supporting Document(s) White Blood Count 10.9 10 4.0-10.0 Above high normal [facility]) Red Blood Count 4.75 10 4.00-5.40 Normal (applies to non-numeric results) [facility] ([facility]) Hematocrit 41.9 % 36.0-47.0 Normal (applies to non-numeric resul ts) [facility] ([facility]) Mean Corpuscular Hemoglobin 27.2 pg 27.0-33.0 Norm al (applies to non-numeric results) [facility] ([facility]) Mean Corpuscular Volume 88.2 fl 80.0-96.0 Normal ( applies to non-numeric results) [facility] ([facility]) Hemoglobin 12.9 g/dL 12.0-15.5 Normal (applies to non-numeric resul ts) [facility] ([facility]) Platelet Count, Automated 287 10 150-450 Normal (applies to non-numeric results) [facility] ([facility]) Mean Corpuscular HGB Conc 30.8 g/dL 32.0-36.5 Below low normal [facility] ([facility]) Red Cell Distribution Width 13.7 % 11.5-14.5 Norm al (applies to non-numeric results) [facility] ([facility]) Eos % 2.4 % 0.0-3.0 Normal (applies to non-numeric resul ts) [facility] ([facility]) Neutrophils % 71.8 % 36.0-66.0 Above high normal [facility] ([facility]) Luce % 6.4 % 0.0-5.0 Above high normal [facility] ([facility]) Lymph % 18.3 % 24.0-44.0 Below low normal [facility] ( [facility]) Immature Granulocyte % 0.5 % 0-3.0 Normal (applies to non-n umeric results) [facility] ([facility]) Baso % 0.6 % 0.0-1.0 Normal (applies to non-numeric resul ts) [facility] ([facility]) Nucleated Red Blood Cell % 0.0 % 0-0 Normal (applies to n on-numeric results) [facility] ([facility]) Neutrophils # 7.8 10 1.5-8.5 Normal (applies to non-numeric re sults) [facility] ([facility]) Lymph # 2.0 10 1.5-5.0 Normal (applies to non-numeric resul ts) [facility] ([facility]) Luce # 0.7 10 0.0-0.8 Normal (applies to non-numeric resul ts) [facility] ([facility]) Eos # 0.3 10 0.0-0.5 Normal (applies to non-numeric resul ts) [facility] ([facility]) Baso # 0.1 10 0.0-0.2 Normal (applies to non-numeric resul ts) [facility] ([facility]) ID Date Data Source [id number] 11/05/2019 02:48:00 AM EDT [facility] Name Value Range Interpretation Code Description Data Tisha rce(s) Supporting Document(s) Inr 1.00 Normal (applies to non-numeric resul ts) [facility] ([facility]) THERAPUTIC HUMAN INR VALUES INDICATIONS NORMAL RANGES PROPHYLAXIS/TREATMENT OF: VENOUS THROMBOSIS 2.0-3.0 PULMONARY EMBOLISM 2.0-3.0 PREVENTION OF SYSTEMIC EMBOLISM FROM: TISSUE HEART VALVES 2.0-3.0 ACUTE MYOCARDIAL INFARCTION 2.0-3.0 VALVULAR HEART DISEASE 2.0-3.0 ATRIAL FIBRILLATION 2.0-3.0 MECHANICAL VALVES(HIGH RISK) 2.5-3.5 RECURRENT MYOCARDIAL INFARCTION 2.5-3.5 Prothrombin Time 12.9 s 11.8-14.0 Normal (applies to non-numeric results) [facility] ([facility]) Partial Thromboplastin Time 23.9 s 25.0-38.4 Below low normal [facility] ([facility]) ID Date Data Source [id number] 11/05/2019 02:48:00 AM EDT [facility]) Name Value Range Interpretation Code Description Data Tisha rce(s) Supporting Document(s) CPK Creatine Phosphokinase 45 U/L 26-192 Nellie l (applies to non-numeric results) [facility] ([facility]) MB/CK Relative Index 3.33 Normal (applies to non-num denita results) [facility] ([facility]) <content>DIAGNOSIS CRITERIA</content>
<content>MMB ng/ml Relative Index (RI)</content>
<content>NON-AMI < or = 5 N/A</content>
<content>DICKERSON ZONE > 5 < or = 4</content>
<content>AMI > 5 > 4</content>
<content></content> CK-MB Value Mass 1.5 ng/mL Normal (applies to non-numeric results) [facility] ([facility]) Troponin I Laboratory test result Normal (applies to non-n umeric results) [facility] ([facility]) <content>Troponin I Reference Interval f or Siemens [place] LOCI:</content>
<content></content>
<content>99th Percentile= 0.00-0.045 ng/ml</content>
<content></content>
<content>Risk Stratification:</content>
<content><= 0.10 ng/ml Decreased Risk for Adverse Clinical</content>
<content>Events.</content>
<content>0.10-1.50 ng/ml Increased Risk for Adverse Clinical</content>
<content>Events. Evaluation of additional</content>
<content>criterion and/or repeat testing in 2-6</content>
<content>hours is suggested to rule out myocardial</content>
<content>damage.</content>
<content>>= 1.50 ng/ml Indicative of Myocardial Injury.</content>
<content></content> ID Date Data Source [id number] 11/05/2019 02:48:00 AM EDT [facility] ([facility]) Name Value Range Interpretation Code Description Data Tisha rce(s) Supporting Document(s) Glomerular Filtration Rate 55.5 Normal (applies to n on-numeric results) [facility] ([facility]) <content>Units are mL/min/1.73 m2</content>
<content></content>
<content>Chronic Kidney Disease Staging per NKF:</content>
<content></content>
<content>Stage I & II GFR >=60 Normal to Mildly Decreased</content>
<content>Stage III GFR 30- 59 Moderately Decreased</content>
<content>Stage IV GFR 15-29 Severely Decreased</content>
<content>Stage V GFR <15 Very Little GFR Left</content>
<content>ESRD GFR <15 on CEMETERY MANAGER</content>
<content></content> Glucose, Fasting 549 mg/dL 70-100 Above upper panic limits [facility] ([facility]) Creatinine For GFR 1.10 mg/dL 0.55-1.30 Normal (applies to non -numeric results) [facility] ([facility]) Blood Urea Nitrogen 20 mg/dL 7-18 Above high normal [facility] ([facility]) Sodium Level 140 meq/L 136-145 Normal (applies to non-numeric res ults) [facility] ([facility]) Chloride Level 104 meq/L 98-107 Normal (applies to non-numeric r esults) [facility] ([facility]) Potassium Serum 4.8 meq/L 3.5-5.1 Normal (applies to non-numeric results) [facility] Testing was performed on a SLIGHTLY hemo lyzed specimen. Suggest recollection of specimen for more accurate test results. Carbon Dioxide Level 28 meq/L 21-32 Normal (applies to non-num denita results) [facility] ([facility]) Anion Gap 8 meq/L 8-16 Normal (applies to non-numeric resul ts) [facility] ([facility]) Calcium Level 8.4 mg/dL 8.5-10.1 Below low normal [facility] ([facility]) ID Date Data Source [id number] 11/05/2019 02:48:00 AM EDT [facility] ([facility]) Name Value Range Interpretation Code Description Data Tisha rce(s) Supporting Document(s) Lipase [Enzymatic activity/volume] in Serum or Plasma 174 U/L 73-393 Normal (applies to non-numeric results) [facility] ([facility]) <content>note:<nlbl:demographic_changed> </content>
<content></content> ID Date Data Source [id number] 10/11/2019 03:34:00 PM EDT [facility] ([facility] Name Value Range Interpretation Code Description Data Tisha rce(s) Supporting Document(s) Glucose [Mass/volume] in Capillary blood by Glucometer 154 mg/dL 70-105 Above high normal [facility] ([facility] order not to draw Doctor Notified ID Date Data Source [id number] 10/11/2019 03:34:00 PM EDT [facility] ([facility]) Name Value Range Interpretation Code Description Data Tisha rce(s) Supporting Document(s) Glucose [Mass/volume] in Capillary blood by Glucometer 154 mg/dL 70-105 Above high normal [facility] ([facility]) order not to draw Doctor Notified ID Date Data Source [id number] 10/11/2019 02:11:00 PM EDT [facility] ([facility] Name Value Range Interpretation Code Description Data Tisha rce(s) Supporting Document(s) Glucose [Mass/volume] in Capillary blood by Glucometer 255 mg/dL 70-105 Above high normal [facility] ([facility] order not to draw Doctor Notified ID Date Data Source [id number] 10/11/2019 02:11:00 PM EDT [facility] ([facility]) Name Value Range Interpretation Code Description Data Tisha rce(s) Supporting Document(s) Glucose [Mass/volume] in Capillary blood by Glucometer 255 mg/dL 70-105 Above high normal [facility] ([facility]) order not to draw Doctor Notified ID Date Data Source [id number] 10/11/2019 01:47:00 PM EDT [facility] ([facility] Name Value Range Interpretation Code Description Data Tisha rce(s) Supporting Document(s) Surgical pathology study Laboratory test result [facility] ([facility] FINAL DIAGNOSIS Right 5th metatarsal head: Gangrenous necrosis, acute and chronic inflammation. Acute osteomyelitis. 10/13/2019935 CLINICAL DIAGNOSIS Chronic ulcer right 5th metatarsal 10/12/2019 - 6 GROSS DIAGNOSIS Received in formalin labeled "right 5th metatarsal head" and consists of a bone and soft tissue, 2 x 1.2 x 1 cm. Focus of ulcer noted. Escort Blind sections are submitted in two. -OA 10/13/2019 - 0936 Signed ELIN SEPULVEDA MD 10/13/2019 0937 ID Date Data Source [id number] 10/11/2019 12:04:00 PM EDT [facility] ([facility] Name Value Range Interpretation Code Description Data Tisha rce(s) Supporting Document(s) Glucose [Mass/volume] in Capillary blood by Glucometer 284 mg/dL 70-105 Above high normal [facility] ([facility] ID Date Data Source [id number] 10/11/2019 12:04:00 PM EDT [facility] ([facility]) Name Value Range Interpretation Code Description Data Tisha rce(s) Supporting Document(s) Glucose [Mass/volume] in Capillary blood by Glucometer 284 mg/dL 70-105 Above high normal [facility] ([facility]) ID Date Data Source [id number] 10/08/2019 12:00:00 AM EDT [facility] Name Value Range Interpretation Code Description Data Tisha rce(s) Supporting Document(s) SARS CORONAVIRUS 2 RNA [facility] This lab was ordered by [facility] and reported by [facility]. ID Date Data Source [id number] 09/26/2019 10:36:00 AM EDT [facility] ([facility] Name Value Range Interpretation Code Description Data Tisha rce(s) Supporting Document(s) Glucose, Fasting 154 mg/dL 70-100 Above high normal [facility] ([facility] Blood Urea Nitrogen 25 mg/dL 7-18 Above high normal [facility] ([facility] Creatinine For GFR 0.91 mg/dL 0.55-1.30 [facility] ([facility] Sodium Level 139 meq/L 136-145 [facility] ([facility] Potassium Serum 4.6 meq/L 3.5-5.1 [facility] ([facility] Glomerular Filtration Rate Laboratory test result [facility] ([facility] <content>Units are mL/min/1.73 m2</content>
<content></content>
<content>Chronic Kidney Disease Staging per NKF:</content>
<content></content>
<content>Stage I & II GFR >=60 Normal to Mildly Decreased</content>
<content>Stage III GFR 30- 59 Moderately Decreased</content>
<content>Stage IV GFR 15-29 Severely Decreased</content>
<content>Stage V GFR <15 Very Little GFR Left</content>
<content>ESRD GFR <15 on CEMETERY MANAGER</content>
<content></content> Carbon Dioxide Level 30 meq/L 21-32 [facility] ([facility] Anion Gap 5 meq/L 8-16 [facility] ([facility] Chloride Level 104 meq/L 98-107 [facility] ([facility] Calcium Level 8.8 mg/dL 8.5-10.1 [facility] ([facility] ID Date Data Source [id number] 09/26/2019 10:36:00 AM EDT [facility] ([facility] Name Value Range Interpretation Code Description Data Tisha rce(s) Supporting Document(s) Red Blood Count 5.07 10 4.00-5.40 [facility] ([facility] White Blood Count 12.0 10 4.0-10.0 Above high normal [facility] ([facility] Hemoglobin 14.0 g/dL 12.0-15.5 [facility] ([facility] Hematocrit 44.6 % 36.0-47.0 [facility] ([facility] Mean Corpuscular Volume 88.0 fl 80.0-96.0 [facility] Mean Corpuscular Hemoglobin 27.6 pg 27.0-33.0 [facility] ([facility] Mean Corpuscular HGB Conc 31.4 g/dL 32.0-36.5 [facility] ([facility] Platelet Count, Automated 304 10 150-450 [facility] ([facility] Red Cell Distribution Width 14.4 % 11.5-14.5 [facility] ([facility] Nucleated Red Blood Cell % 0.0 % 0-0 [facility] ([facility] ID Date Data Source [id number] 09/26/2019 10:36:00 AM EDT [facility] ([facility]) Name Value Range Interpretation Code Description Data Tisha rce(s) Supporting Document(s) Creatinine For GFR 0.91 mg/dL 0.55-1.30 Normal (applies to non -numeric results) [facility] ([facility]) Glucose, Fasting 154 mg/dL 70-100 Above high normal [facility] Blood Urea Nitrogen 25 mg/dL 7-18 Above high normal [facility] ([facility]) Sodium Level 139 meq/L 136-145 Normal (applies to non-numeric res ults) [facility] ([facility]) Glomerular Filtration Rate Laboratory test result Normal (applies to non- numeric results) [facility] ([facility]) <content>Units are mL/min/1.73 m2</content>
<content></content>
<content>Chronic Kidney Disease Staging per NKF:</content>
<content></content>
<content>Stage I & II GFR >=60 Normal to Mildly Decreased</content>
<content>Stage III GFR 30- 59 Moderately Decreased</content>
<content>Stage IV GFR 15-29 Severely Decreased</content>
<content>Stage V GFR <15 Very Little GFR Left</content>
<content>ESRD GFR <15 on CEMETERY MANAGER</content>
<content></content> Potassium Serum 4.6 meq/L 3.5-5.1 Normal (applies to non-numeric results) [facility] ([facility]) Carbon Dioxide Level 30 meq/L 21-32 Normal (applies to non-num denita results) [facility] ([facility]) Anion Gap 5 meq/L 8-16 Below low normal [facility] ( [facility]) Chloride Level 104 meq/L 98-107 Normal (applies to non-numeric r esults) [facility] ([facility]) Calcium Level 8.8 mg/dL 8.5-10.1 Normal (applies to non-numeric re sults) [facility] ([facility]) ID Date Data Source [id number] 09/26/2019 10:36:00 AM EDT [facility] ([facility]) Name Value Range Interpretation Code Description Data Tisha rce(s) Supporting Document(s) Hemoglobin 14.0 g/dL 12.0-15.5 Normal (applies to non-numeric resul ts) [facility] ([facility]) White Blood Count 12.0 10 4.0-10.0 Above high normal [facility] ([facility]) Red Blood Count 5.07 10 4.00-5.40 Normal (applies to non-numeric results) [facility] ([facility]) Mean Corpuscular Volume 88.0 fl 80.0-96.0 Normal ( applies to non-numeric results) [facility] ([facility]) Hematocrit 44.6 % 36.0-47.0 Normal (applies to non-numeric resul ts) [facility] Mean Corpuscular Hemoglobin 27.6 pg 27.0-33.0 Norm al (applies to non-numeric results) [facility] ([facility]) Platelet Count, Automated 304 10 150-450 Normal (applies to non-numeric results) [facility] ([facility]) Nucleated Red Blood Cell % 0.0 % 0-0 Normal (applies to n on-numeric results) [facility] ([facility]) Red Cell Distribution Width 14.4 % 11.5-14.5 Norm al (applies to non-numeric results) [facility] ([facility]) Mean Corpuscular HGB Conc 31.4 g/dL 32.0-36.5 Below low normal [facility] ([facility]) ID Date Data Source [id number] 09/26/2019 10:31:00 AM EDT [facility] ([facility]) Name Value Range Interpretation Code Description Data Tisha rce(s) Supporting Document(s) Hemoglobin A1c 11.8 % Normal (applies to non-numeric r esults) [facility] ([facility]) REFERENCE RANGES: 4.5-5.6% NORMAL 5.7-6.4% SUGGESTS IMPAIRED GLUCOSE META BOLISM >= 6.5% ABNORMAL Estimated Average Glucose 292 mg/dL 60-110 Above high normal [facility] ([facility]) ID Date Data Source [id number] 09/26/2019 10:31:00 AM EDT [facility] ([facility]) Name Value Range Interpretation Code Description Data Tisha rce(s) Supporting Document(s) Blood Urea Nitrogen 24 mg/dL 7-18 Above high normal [facility] Glucose, Fasting 153 mg/dL 70-100 Above high normal [facility] Glomerular Filtration Rate Laboratory test result Normal (applies to non- numeric results) [facility] ([facility]) <content>Units are mL/min/1.73 m2</content>
<content></content>
<content>Chronic Kidney Disease Staging per NKF:</content>
<content></content>
<content>Stage I & II GFR >=60 Normal to Mildly Decreased</content>
<content>Stage III GFR 30- 59 Moderately Decreased</content>
<content>Stage IV GFR 15-29 Severely Decreased</content>
<content>Stage V GFR <15 Very Little GFR Left</content>
<content>ESRD GFR <15 on CEMETERY MANAGER</content>
<content></content> Sodium Level 140 meq/L 136-145 Normal (applies to non-numeric res ults) [facility] ([facility]) Creatinine For GFR 0.86 mg/dL 0.55-1.30 Normal (applies to non -numeric results) [facility] ([facility]) Carbon Dioxide Level 30 meq/L 21-32 Normal (applies to non-num denita results) [facility] ([facility]) Potassium Serum 4.6 meq/L 3.5-5.1 Normal (applies to non-numeric results) [facility] ([facility]) Chloride Level 104 meq/L 98-107 Normal (applies to non-numeric r esults) [facility] ([facility]) Ast/Sgot 12 U/L 7-37 Normal (applies to non-numeric resul ts) [facility] ([facility]) Calcium Level 8.8 mg/dL 8.5-10.1 Normal (applies to non-numeric re sults) [facility] ([facility]) Alt/SGPT 18 U/L 12-78 Normal (applies to non-numeric resul ts) [facility] ([facility]) Anion Gap 6 meq/L 8-16 Below low normal [facility] ( [facility]) Total Protein 6.7 GM/DL 6.4-8.2 Normal (applies to non-numeric re sults) [facility] ([facility]) Bilirubin,Total 0.2 mg/dL 0.2-1.0 Normal (applies to non-numeric results) [facility] ([facility]) Alkaline Phosphatase 154 U/L 45-117 Above high normal [facility] ([facility]) Albumin/Globulin Ratio 0.8 1.2-2.2 Below low normal [facility] ([facility]) Albumin 2.9 GM/DL 3.2-5.2 Below low normal [facility] ( [facility]) ID Date Data Source [id number] 09/19/2019 09:35:00 AM EDT [facility] ([facility]) Name Value Range Interpretation Code Description Data Tisha rce(s) Supporting Document(s) Glucose [Mass/volume] in Capillary blood by Glucometer 248 mg/dL 70-105 Above high normal [facility] ([facility]) ID Date Data Source [id number] 09/19/2019 09:35:00 AM EDT [facility] ([facility] ) Name Value Range Interpretation Code Description Data Tisha rce(s) Supporting Document(s) Glucose [Mass/volume] in Capillary blood by Glucometer 248 mg/dL 70-105 Above high normal [facility] ([facility] ) ID Date Data Source [id number] 09/19/2019 07:10:00 AM EDT [facility] ([facility]) Name Value Range Interpretation Code Description Data Tisha rce(s) Supporting Document(s) Glucose, Fasting 355 mg/dL 70-100 Above high normal [facility] Blood Urea Nitrogen 16 mg/dL 7-18 Normal (applies to non-nume yogesh results) [facility] ([facility]) Creatinine For GFR 0.96 mg/dL 0.55-1.30 Normal (applies to non -numeric results) [facility] ([facility]) Sodium Level 136 meq/L 136-145 Normal (applies to non-numeric res ults) [facility] ([facility]) Glomerular Filtration Rate Laboratory test result Normal (applies to non- numeric results) [facility] ([facility]) <content>Units are mL/min/1.73 m2</content>
<content></content>
<content>Chronic Kidney Disease Staging per NKF:</content>
<content></content>
<content>Stage I & II GFR >=60 Normal to Mildly Decreased</content>
<content>Stage III GFR 30- 59 Moderately Decreased</content>
<content>Stage IV GFR 15-29 Severely Decreased</content>
<content>Stage V GFR <15 Very Little GFR Left</content>
<content>ESRD GFR <15 on CEMETERY MANAGER</content>
<content></content> Potassium Serum 4.1 meq/L 3.5-5.1 Normal (applies to non-numeric results) [facility] ([facility]) Chloride Level 103 meq/L 98-107 Normal (applies to non-numeric r esults) [facility] ([facility]) Carbon Dioxide Level 30 meq/L 21-32 Normal (applies to non-num denita results) [facility] Anion Gap 3 meq/L 8-16 Below low normal [facility] ( [facility]) Calcium Level 8.7 mg/dL 8.5-10.1 Normal (applies to non-numeric re sults) [facility] ID Date Data Source [id number] 09/19/2019 07:10:00 AM EDT [facility] Name Value Range Interpretation Code Description Data Tisha rce(s) Supporting Document(s) White Blood Count 11.3 10 4.0-10.0 Above high normal [facility] ([facility]) Hematocrit 42.0 % 36.0-47.0 Normal (applies to non-numeric resul ts) [facility] Red Blood Count 4.80 10 4.00-5.40 Normal (applies to non-numeric results) [facility]) Hemoglobin 13.5 g/dL 12.0-15.5 Normal (applies to non-numeric resul ts) [facility]) Mean Corpuscular Hemoglobin 28.1 pg 27.0-33.0 Norm al (applies to non-numeric results) [facility]) Mean Corpuscular HGB Conc 32.1 g/dL 32.0-36.5 Normal (applies to non-numeric results) [facility] Mean Corpuscular Volume 87.5 fl 80.0-96.0 Normal ( applies to non-numeric results) [facility] ([facility]) Red Cell Distribution Width 14.1 % 11.5-14.5 Norm al (applies to non-numeric results) [facility] ([facility]) Platelet Count, Automated 259 10 150-450 Normal (applies to non-numeric results) [facility] ([facility]) Nucleated Red Blood Cell % 0.0 % 0-0 Normal (applies to n on-numeric results) [facility] ([facility]) ID Date Data Source [id number] 09/19/2019 07:10:00 AM EDT [facility] ([facility]) Name Value Range Interpretation Code Description Data Tisha rce(s) Supporting Document(s) Glucose, Fasting 355 mg/dL 70-100 Above high normal [facility]) Blood Urea Nitrogen 16 mg/dL 7-18 Normal (applies to non-nume yogesh results) [facility] ([facility]) Glomerular Filtration Rate Laboratory test result Normal (applies to non- numeric results) [facility] ([facility], ) <content>Units are mL/min/1.73 m2</content>
<content></content>
<content>Chronic Kidney Disease Staging per NKF:</content>
<content></content>
<content>Stage I & II GFR >=60 Normal to Mildly Decreased</content>
<content>Stage III GFR 30- 59 Moderately Decreased</content>
<content>Stage IV GFR 15-29 Severely Decreased</content>
<content>Stage V GFR <15 Very Little GFR Left</content>
<content>ESRD GFR <15 on CEMETERY MANAGER</content>
<content></content> Creatinine For GFR 0.96 mg/dL 0.55-1.30 Normal (applies to non -numeric results) [facility] ([facility], ) Sodium Level 136 meq/L 136-145 Normal (applies to non-numeric res ults) [facility] ([facility]) Carbon Dioxide Level 30 meq/L 21-32 Normal (applies to non-num denita results) [facility] ([facility]) Potassium Serum 4.1 meq/L 3.5-5.1 Normal (applies to non-numeric results) [facility] ([facility]) Chloride Level 103 meq/L 98-107 Normal (applies to non-numeric r esults) [facility] ([facility]) Calcium Level 8.7 mg/dL 8.5-10.1 Normal (applies to non-numeric re sults) [facility] ([facility]) Anion Gap 3 meq/L 8-16 Below low normal [facility] ( [facility]) ID Date Data Source [id number] 09/19/2019 07:10:00 AM EDT [facility] ([facility]) Name Value Range Interpretation Code Description Data Tisha rce(s) Supporting Document(s) White Blood Count 11.3 10 4.0-10.0 Above high normal [facility] ([facility]) Hemoglobin 13.5 g/dL 12.0-15.5 Normal (applies to non-numeric resul ts) [facility] ([facility]) Red Blood Count 4.80 10 4.00-5.40 Normal (applies to non-numeric results) [facility] ([facility]) Mean Corpuscular Volume 87.5 fl 80.0-96.0 Normal ( applies to non-numeric results) [facility]) Hematocrit 42.0 % 36.0-47.0 Normal (applies to non-numeric resul ts) [facility]) Mean Corpuscular Hemoglobin 28.1 pg 27.0-33.0 Norm al (applies to non-numeric results) [facility] ([facility]) Platelet Count, Automated 259 10 150-450 Normal (applies to non-numeric results) [facility] ([facility]) Red Cell Distribution Width 14.1 % 11.5-14.5 Norm al (applies to non-numeric results) [facility]) Mean Corpuscular HGB Conc 32.1 g/dL 32.0-36.5 Normal (applies to non-numeric results) [facility]) Nucleated Red Blood Cell % 0.0 % 0-0 Normal (applies to n on-numeric results) [facility]) ID Date Data Source [id number] 09/19/2019 07:09:00 AM EDT [facility] ([facility]) Name Value Range Interpretation Code Description Data Tisha rce(s) Supporting Document(s) Glucose [Mass/volume] in Capillary blood by Glucometer 386 mg/dL 70-105 Above high normal [facility] ([facility]) ID Date Data Source [id number] 09/19/2019 07:09:00 AM EDT [facility] ([facility]) Name Value Range Interpretation Code Description Data Tisha rce(s) Supporting Document(s) Glucose [Mass/volume] in Capillary blood by Glucometer 386 mg/dL 70-105 Above high normal [facility] ID Date Data Source [id number] 08/10/2019 03:55:26 PM EDT [facility] Name Date of Age Gend*PT [id number] Tatianna Soto 1965 54 years F ---PT Location Admission Date/Time Visit ID Attending Provider --- --- --- --- EPI ID CSN Admitting Provider [id number] ---Addended by: KAREN BAR on: 08/10/2019 03:55 PM Modules accepted: Orders Name Value Range Interpretation Code Description Data Tisha rce(s) Supporting Document(s) ID Date Data Source [id number] 07/26/2019 06:52:00 AM EDT [facility] Name Value Range Interpretation Code Description Data Tisha rce(s) Supporting Document(s) Glucose [Mass/volume] in Capillary blood by Glucometer 173 mg/dL 70-105 Above high normal [facility] ([facility]) ID Date Data Source [id number] 07/26/2019 06:52:00 AM EDT [facility] ([facility]) Name Value Range Interpretation Code Description Data Tisha rce(s) Supporting Document(s) Glucose [Mass/volume] in Capillary blood by Glucometer 173 mg/dL 70-105 Above high normal [facility] ([facility]) ID Date Data Source [id number] 07/06/2019 10:03:[address] [facility] Name Value Range Interpretation Code Description Data Tisha rce(s) Supporting Document(s) &PDF [facility] BYZGLb5pFfEOUrOd27/XAFxdUAOco0LpAIklEWo4FZihBXLpN0WltExcBIQDYWYHWW1GIXzLUHLpUAQs FcG [file] MxPbZxMTY4K+/vp client services/ierIKq8dT2O7X9USsXi1qRL4jOv0AaB8umSJV3JlbFjrxhZzUfy8MlWmHc+dnds/ gFFfSha8W14n3VZZl0JUCG5UaSRMORmc4eAK/gBR1xjs3Qttx1wW/XbzF88cC23VfQ+DWnUxoROF/V1L oJ9ewaJE6HNvWJKyhlZCIfdUkcyZnCnwhVC8HxEcLq p+11UN/KS/1NbDa0IBmdZ6bfH1dlAJiTkWbq0ndqGIzSdhwBVJA0Knup+tu5ohw9lIaLCMKMt3gCdVsk uUV9oUgiPR2QZSClzIZETb35zYZ3jZahV7aXiHWoNDXsVl4hD6ClLTFhjJeL+W0ltBGPKdo9EBV60OM3 nEqygTHvAFSgfzn+1i6vvX4XHjwWOPLqay0Ww1pbsN rVaUTzsDY9cFVZsjEw9KhFaEkuaBCcnLyI20R8aUck2AIWunKAXiLe1jjB3xU/LOzFss9+OYFsjXtC80 Y80OmmcIbBYFl1eWBEYv1/MmS4zjeUlESNdHP3qwfehtS2+8+VtsKBSV4fBt2clDlY3jgCe+DW2H/YU7 4m2+Ky6ERKHnSfNwF9sIxOy9eq2cWYIQTZO71ZXCvy v6Hl/f3gNwxpmZh8BsR+dn51voxKuH8d0qwyIPm+hyBxYxpkas6IaaM3aB70o8u2FEOT4hzU5NHRqKEh CJBqoSP2QwosncL26TogN0UqjYybygmJgHUDL80wraL1ldUAI+AQPvyy5eVNw8XRDKS+uyHgerHgH6qt ZYgdQ0TgAZS1nVC0JbnZ1x9/iO7QQxahagMH5T6LQV s2KJPUC1hFwr5vyg3S5DwIcMQx+XeTk+AgX0xvkIxKfoMa5f5LkgUNNWG5BotqiRZ6bagG5bLT4HkYy1 oJOZB/YZayyz94icr+X5GK21aXVBhSYIf+Vx6SIpFZfRlkouGpBsP31mHt/NWXmS8YTiHF/Dimple/4Xkow [file] Jesus Manuel/0vf3uPfe+FVx6T/abzh64b6pc2br/7dbA/3EJ2 [file] kbi2ByEDJm7/XYqj0NXKcbGm/piano sounding board matcher/Aqte1VNnI8eb4VdaROVdH2KsdXnNrMJdXiVufuE9sLfHNVj8CuK 28sE2j7fN/CqGisHxG7HmEo/0auYzjTg6RJq7hztRyG/cMpne2zC+Mv10to6EW1ywhsPXC0Xt5Ii/CgF 1I45w7TKhwDQ2FN/BgdfZAF6ArjyitBiWYuopeCnvu F/GeyAf+Schrader+1zC1fbsx1fr1xXSwn2qw+1AeG2144twAGrVkvEnIYVAwCAVQLa8J6XzBwyAO5vCdMTx86 [file] ICAgICAgICAgICAgICAgICAgICAgICAgICAgICAgICAgICAgICAgICAgICAgICAgICAgICAgICAgICAg ICAgICAgICAgICAgICAgICAgICAgICAgICAgICAgIC YzHBQxTZ5OHXJnETXiLZXeUOYjMIWfXWCqLIZbTEGfFOLkNNLiFTLlFMNnQNPnSULtAOJsWFKrBQPyLL SzPJJbAOBdKFHmLIFwKLByZZNdQEIaPVUrPPDbIUMhYMKwIMStZLDhGYRrDPOhMY8EJVCjFUQeSVUnOY AgICAgICAgICAgICAgICAgICAgICAgICAgICAgICAg UUWgBUOaKZDtLYTqTGVaAGLnDAXwYJIyVUGfAECjHGEkKKFeMUYsEQAcVRDiKTScENWjXXSfEVXzED7I ICAgICAgICAgICAgICAgICAgICAgICAgICAgICAgICAgICAgICAgICAgICAgICAgICAgICAgICAgICAg ICAgICAgICAgICAgICAgICAgICAgICAgICAgICAgIC HfJEHwPGDeSH2EXMXlKRFfOCBvFAJoISXtVJFtAPVaWISlVAGrKFSjSASuGNOxBHWlBXBjHBTaLSNhLP VhXOBsETXgBUTvNVBwCKBeXHUkBYCqGXGpHYSqCNShYRTmVZCdDVOyVDFhDMVgZDDoAC4OUFXsOYHwCE AgICAgICAgICAgICAgICAgICAgICAgICAgICAgICAg ICAgICAgICAgICAgICAgICAgICAgICAgICAgICAgICAgICAgICAgICAgICAgICAgICAgICAgICAgICAg IJ6XZLBaSEQtLEYiWZMcWGXbVBUePXFhTGMqPPUsPVRuXPGsGRPmFMJwITIoKFNsVSLaEIIqLKBbRCIl ICAgICAgICAgICAgICAgICAgICAgICAgICAgICAgIC BdLZEqGLXuGCXlMK3VTHLbQRMcPPVcGFSnIVQkFGXeDSHwKJZjPZVaYGRiUQBjGZWlEZAyQJIwZSMvNB WnQHJnTNZbUNWpSAFsNLReMWSfPYPaQMCeTOAcCCAvCTOkOQFnUQWvJJKyQLBoPFCzJHVvLJ6KOVOqMH AgICAgICAgICAgICAgICAgICAgICAgICAgICAgICAg ICAgICAgICAgICAgICAgICAgICAgICAgICAgICAgICAgICAgICAgICAgICAgICAgICAgICAgICAgICAg TUQfOB9IAQSgQFKiDDRxNOBnIOImXMMbGQXhNZCwMDLdSWDkHJKaDZXmNZHiMEGoWHFdNNOgXSIgWCPb ICAgICAgICAgICAgICAgICAgICAgICAgICAgICAgIC HgGOTvGVLdKSEbUQAfQX5XVI23qNErw4T9BFHfLL5cufm/Ag4LUBrgkaTncEXxFJ9DHsStNO0wpz6SIm CaVV4zru4QXPiHGaAaH9M3vDWaMOKcFMYLQwOpA37bRGhcZt29SGjgAAHyEjAeQNi8Ke9TSxKcI9tePU FeInG6OBYuFiE6RWJgVbLhGInoNM5Lc0FtzPQqIIp+ Fq9GCR1qw0JfIFmyMKRzZJ2cza1LIHzSTwAnI5D6hAGoI8Z8PTlbUa4HVQCjNUXeNuOfLIZCJStzTS0V ML2ezeK0VP4ZbIHmZYLtEXWveLKrCAr8W00cbMFkLHvrML3TMVQ+Jose+Wx2FFXMuTYOnLLYuUxQmHAZX QkNvV19ujZMoSEWrZFV3MNUdPh1WPTSzO0TaqzBhbU bvnqKfHJAeXLVIVY5AZIgnucZjlHYaaTwgMM43fSgmSO4LPa5ADwXoKD6zrh6JmZQkJh4ZXCWnRN8DVT VlULVtOMQhDOC6BLNtNnZyYTpmJUSvTBGlNXF8OTUdAVJzFG0YJqYxSZNjNAVoZuJeVOEzBBGezu6IMU VfUYI3SCX8HEBmFBJpJZFhOSlfFSGvHUUkYIrxNTSz XTGsKQ1TZeRlMHRfKUL0HBqkAYHvCWPugm9PGPPjHYPvDjj0OeMuMTBaQKPuASzsTFUpLVR5IVAwQYAl OTXoPL7QFpYxEXDdMPGgQaNrGCYrJDFxii6WDOFbRIWcFtD7DMIjWVRmNHDuHTjhSDSiYVQ8ZGenRZLu JFYdTC7LHfUiUMIdBQj3GzTwHOBcXRRgcn7NIOLfCA ZwWJYeNKLbEGEyYGMzBDsfBZOnWIN7YIVxWLZfDSWyIB1SUgAxXTLuEEslZpGgMAIoMDWmdc4OMLMoTL KoEEq0KNIuDKMqKVGiAMbxWTTkRUKoXYlsSVEaRDNcQR3WVwJgKRRwQOXfAbCvXMYwXXPbmh9HQXMnFA OkVsL0WeBdEDHjOOZyQGcoVJLuUYJ6RAc2PVSoDJJx BE0NTjLoUVAiTQcePGAvWJSiTRFspt4PGQDuXPNiGNQ7FpHvPIWqNOAkHMifYOUkPXU7VpKiJEAxZAWr PX5KUtUuGPFdMUs6LfYeDYQxLDFqip9XJIZhEHS9YZH1CKGxOMZsKVPyINjzQOBvDZbwPcK5ZNHkICDe UB3ZIlKdTISsACFjAWPdMPUlHBQxwx4NPUWeMEY0Co ecSSKxHZKbCARtEAekTZLbKTj1SMCsUZEfLGPuUA6SNxKnRQpuGPDUIyw5AJpiI1x0FMEwYF4HK3Lgs7 HuJwpmAFGCAPurOV2fkiWxMUTjTb2AH5bILfzdZYaeIHJyNSlyKDG5W4ObJms4GOg3TzkuCtgsUtN0HK 0gTHQwKUGoQ0UrISQwUmE4B8SfGDV9NAG2AHMkX1K6 TRk8ToCvAR6DUh7ZMbI3UDY7oBVoJf2LMCQsXWIMWbKnBH0HKUj= ID Date Data Source [id number] 07/05/2019 04:39:00 PM EDT [facility] ([facility]) Name Value Range Interpretation Code Description Data Tisha rce(s) Supporting Document(s) Osmolality of Serum or Plasma 294 MOSM/KG 275-295 No rmal (applies to non-numeric results) [facility] ([facility]) <content>note:<nlbl:demographic_changed> </content>
<content></content> Osmolality of Urine 521 MOSM/KG 500-800 Normal (applies to no n-numeric results) [facility] ([facility]) ID Date Data Source [id number] 07/05/2019 04:39:00 PM EDT [facility] ([facility]) Name Value Range Interpretation Code Description Data Tisha rce(s) Supporting Document(s) Alkaline Phosphatase 148 U/L 45-117 Above high normal [facility] ([facility]) Ast/Sgot 11 U/L 7-37 Normal (applies to non-numeric resul ts) [facility] ([facility]) Alt/SGPT 15 U/L 12-78 Normal (applies to non-numeric resul ts) [facility] ([facility]) Albumin 3.0 GM/DL 3.2-5.2 Below low normal [facility] Bilirubin,Direct Laboratory test result 0.0-0.2 Normal ( applies to non-numeric results) [facility] ([facility]) Bilirubin,Total 0.1 mg/dL 0.2-1.0 Below low normal [facility] ([facility]) Total Protein 6.9 GM/DL 6.4-8.2 Normal (applies to non-numeric re sults) [facility] ([facility]) Albumin/Globulin Ratio 0.77 1.00-1.93 Below low normal [facility] ([facility]) ID Date Data Source [id number] 07/05/2019 04:39:00 PM EDT [facility] ([facility]) Name Value Range Interpretation Code Description Data Tisha rce(s) Supporting Document(s) C reactive protein [Mass/volume] in Serum or Plasma by High sensitivity method 1.76 mg/dL 0.00-0.30 Above high normal [facility] ([facility]) <content>note:<nlbl:demographic_changed> </content>
<content></content> Lactate [Mass/volume] in Serum or Plasma 1.9 mmol/L 0.4-2.0 Normal (applies to non-numeric results) [facility] ([facility]) <content>note:<nlbl:demographic_changed> </content>
<content>Y/N query for Sepsis Lactate Rule: Y</content>
<content></content> ID Date Data Source [id number] 07/05/2019 04:39:00 PM EDT [facility] ([facility]) Name Value Range Interpretation Code Description Data Tisha rce(s) Supporting Document(s) Hemoglobin 15.3 g/dL 12.0-15.5 Normal (applies to non-numeric resul ts) [facility] ([facility]) White Blood Count 12.6 10 4.0-10.0 Above high normal [facility] ([facility]) Red Blood Count 5.26 10 4.00-5.40 Normal (applies to non-numeric results) [facility] ([facility]) Hematocrit 46.6 % 36.0-47.0 Normal (applies to non-numeric resul ts) [facility] ([facility]) Mean Corpuscular Hemoglobin 29.1 pg 27.0-33.0 Norm al (applies to non-numeric results) [facility] ([facility]) Mean Corpuscular Volume 88.6 fl 80.0-96.0 Normal ( applies to non-numeric results) [facility] ([facility]) Red Cell Distribution Width 13.5 % 11.5-14.5 Norm al (applies to non-numeric results) [facility] ([facility]) Neutrophils % 69.5 % 36.0-66.0 Above high normal [facility] ([facility]) Mean Corpuscular HGB Conc 32.8 g/dL 32.0-36.5 Normal (applies to non-numeric results) [facility] ([facility]) Platelet Count, Automated 290 10 150-450 Normal (applies to non-numeric results) [facility] ([facility]) Lymph % 20.1 % 24.0-44.0 Below low normal [facility] ( [facility]) Eos % 3.9 % 0.0-3.0 Above high normal [facility] ([facility]) Luce % 5.3 % 0.0-5.0 Above high normal [facility] ([facility]) Nucleated Red Blood Cell % 0.0 % 0-0 Normal (applies to n on-numeric results) [facility] ([facility]) Neutrophils # 8.8 10 1.5-8.5 Above high normal [facility] ([facility]) Baso % 0.6 % 0.0-1.0 Normal (applies to non-numeric resul ts) [facility] ([facility]) Immature Granulocyte % 0.6 % 0-3.0 Normal (applies to non-n umeric results) [facility] ([facility]) Luce # 0.7 10 0.0-0.8 Normal (applies to non-numeric resul ts) [facility] ([facility]) Eos # 0.5 10 0.0-0.5 Normal (applies to non-numeric resul ts) [facility] ([facility]) Lymph # 2.5 10 1.5-5.0 Normal (applies to non-numeric resul ts) [facility] ([facility]) Baso # 0.1 10 0.0-0.2 Normal (applies to non-numeric resul ts) [facility] ([facility]) ID Date Data Source [id number] 07/05/2019 04:39:00 PM EDT [facility] ([facility]) Name Value Range Interpretation Code Description Data Tisha rce(s) Supporting Document(s) Glomerular Filtration Rate Laboratory test result Normal (applies to non- numeric results) [facility] ([facility]) <content>Units are mL/min/1.73 m2</content>
<content></content>
<content>Chronic Kidney Disease Staging per NKF:</content>
<content></content>
<content>Stage I & II GFR >=60 Normal to Mildly Decreased</content>
<content>Stage III GFR 30- 59 Moderately Decreased</content>
<content>Stage IV GFR 15-29 Severely Decreased</content>
<content>Stage V GFR <15 Very Little GFR Left</content>
<content>ESRD GFR <15 on CEMETERY MANAGER</content>
<content></content> Glucose, Fasting 119 mg/dL 70-100 Above high normal [facility] ([facility]) Creatinine For GFR 0.97 mg/dL 0.55-1.30 Normal (applies to non -numeric results) [facility] ([facility]) Blood Urea Nitrogen 13 mg/dL 7-18 Normal (applies to non-nume yogesh results) [facility] Potassium Serum 4.8 meq/L 3.5-5.1 Normal (applies to non-numeric results) [facility] ([facility]) Sodium Level 139 meq/L 136-145 Normal (applies to non-numeric res ults) [facility] ([facility]) Chloride Level 106 meq/L 98-107 Normal (applies to non-numeric r esults) [facility] ([facility]) Calcium Level 9.1 mg/dL 8.5-10.1 Normal (applies to non-numeric re sults) [facility] ([facility]) Anion Gap 4 meq/L 8-16 Below low normal [facility] ( [facility]) Carbon Dioxide Level 29 meq/L 21-32 Normal (applies to non-num denita results) [facility] ([facility]) ID Date Data Source [id number] 06/17/2019 12:47:00 PM EST [facility] ([facility]) Name Value Range Interpretation Code Description Data Tisha rce(s) Supporting Document(s) Glucose, Fasting 825 mg/dL 70-100 Above upper panic limits [facility] ([facility]) Creatinine For GFR 1.15 mg/dL 0.55-1.30 Normal (applies to non -numeric results) [facility] ([facility]) Glomerular Filtration Rate 52.8 Normal (applies to n on-numeric results) [facility] ([facility]) <content>Units are mL/min/1.73 m2</content>
<content></content>
<content>Chronic Kidney Disease Staging per NKF:</content>
<content></content>
<content>Stage I & II GFR >=60 Normal to Mildly Decreased</content>
<content>Stage III GFR 30- 59 Moderately Decreased</content>
<content>Stage IV GFR 15-29 Severely Decreased</content>
<content>Stage V GFR <15 Very Little GFR Left</content>
<content>ESRD GFR <15 on CEMETERY MANAGER</content>
<content></content> Blood Urea Nitrogen 22 mg/dL 7-18 Above high normal [facility] ([facility]) Sodium Level 126 meq/L 136-145 Below low normal [facility] Potassium Serum 5.0 meq/L 3.5-5.1 Normal (applies to non-numeric results) [facility] ([facility]) Testing was performed on a SLIGHTLY hemo lyzed specimen. Suggest recollection of specimen for more accurate test results. Chloride Level 92 meq/L 98-107 Below low normal [facility] ([facility]) Anion Gap 10 meq/L 8-16 Normal (applies to non-numeric resul ts) [facility] ([facility]) Carbon Dioxide Level 24 meq/L 21-32 Normal (applies to non-num denita results) [facility] ([facility]) Calcium Level 8.9 mg/dL 8.5-10.1 Normal (applies to non-numeric re sults) [facility] ([facility]) ID Date Data Source [id number] 06/17/2019 12:47:00 PM EST [facility] ([facility]) Name Value Range Interpretation Code Description Data Tisha rce(s) Supporting Document(s) Osmolality of Serum or Plasma 313 MOSM/KG 275-295 Above high nellie l [facility] ([facility]) <content>note:<nlbl:demographic_changed> </content>
<content></content> ID Date Data Source [id number] 06/17/2019 12:46:00 PM EST [facility] ([facility]) Name Value Range Interpretation Code Description Data Tisha rce(s) Supporting Document(s) Venous PH 7.389 units 7.330-7.430 Normal (applies to non-numeric res ults) [facility] ([facility]) Venous Total Co2 24.6 meq/L 24.0-28.0 Normal (applies to non-numeric results) [facility] ([facility]) Venous Partial Pressure Co2 39.6 mmHg 38.0-50.0 Norm al (applies to non-numeric results) [facility] ([facility]) Venous Partial Pressure O2 142.2 mmHg 30.0-50.0 Above high normal [facility] ([facility]) Venous Base Excess -1.4 Normal (applies to non-numer ic results) [facility] ([facility]) Venous Hco3 23.4 meq/L 23.0-27.0 Normal (applies to non-numeric resu lts) [facility] ([facility]) Venous Standard Hco3 23.4 meq/L Normal (applies to non-num denita results) [facility] ([facility]) Venous O2 Saturation 98.4 % 60.0-80.0 Above high normal [facility] ([facility]) ID Date Data Source [id number] 06/17/2019 12:46:00 PM EST [facility] ([facility]) Name Value Range Interpretation Code Description Data Tisha rce(s) Supporting Document(s) White Blood Count 9.9 10 4.0-10.0 Normal (applies to non-numeri c results) [facility] ([facility]) Mean Corpuscular Volume 87.1 fl 80.0-96.0 Normal ( applies to non-numeric results) [facility] ([facility]) Red Blood Count 5.33 10 4.00-5.40 Normal (applies to non-numeric results) [facility] ([facility]) Hemoglobin 14.9 g/dL 12.0-15.5 Normal (applies to non-numeric resul ts) [facility] ([facility]) Hematocrit 46.4 % 36.0-47.0 Normal (applies to non-numeric resul ts) [facility] ([facility]) Red Cell Distribution Width 13.6 % 11.5-14.5 Norm al (applies to non-numeric results) [facility] ([facility]) Mean Corpuscular HGB Conc 32.1 g/dL 32.0-36.5 Normal (applies to non-numeric results) [facility] ([facility]) Mean Corpuscular Hemoglobin 28.0 pg 27.0-33.0 Norm al (applies to non-numeric results) [facility] ([facility]) Neutrophils % 78.7 % 36.0-66.0 Above high normal [facility] ([facility]) Lymph % 14.8 % 24.0-44.0 Below low normal [facility] ( [facility]) Platelet Count, Automated 357 10 150-450 Normal (applies to non-numeric results) [facility] ([facility]) Luce % 4.1 % 0.0-5.0 Normal (applies to non-numeric resul ts) [facility] ([facility]) Immature Granulocyte % 0.5 % 0-3.0 Normal (applies to non-n umeric results) [facility] ([facility]) Baso % 0.6 % 0.0-1.0 Normal (applies to non-numeric resul ts) [facility] ([facility]) Eos % 1.3 % 0.0-3.0 Normal (applies to non-numeric resul ts) [facility] ([facility]) Nucleated Red Blood Cell % 0.0 % 0-0 Normal (applies to n on-numeric results) [facility] ([facility]) Neutrophils # 7.8 10 1.5-8.5 Normal (applies to non-numeric re sults) [facility] ([facility]) Lymph # 1.5 10 1.5-5.0 Normal (applies to non-numeric resul ts) [facility] ([facility]) Luce # 0.4 10 0.0-0.8 Normal (applies to non-numeric resul ts) [facility] ([facility]) Eos # 0.1 10 0.0-0.5 Normal (applies to non-numeric resul ts) [facility] ([facility]) Baso # 0.1 10 0.0-0.2 Normal (applies to non-numeric resul ts) [facility] ([facility]) ID Date Data Source [id number] 06/17/2019 12:46:00 PM EST [facility] ([facility]) Name Value Range Interpretation Code Description Data Tisha rce(s) Supporting Document(s) Lactate [Mass/volume] in Serum or Plasma 2.5 mmol/L 0.4-2.0 Above upper panic limits [facility] ([facility]) <content>note:<nlbl:demographic_changed> </content>
<content>Y/N query for Sepsis Lactate Rule: Y</content>
<content></content> ID Date Data Source [id number] 06/17/2019 12:46:00 PM EST [facility] ([facility]) Name Value Range Interpretation Code Description Data Tisha rce(s) Supporting Document(s) Estimated Average Glucose 249 mg/dL 60-110 Above high normal [facility] ([facility]) Hemoglobin A1c 10.3 % Normal (applies to non-numeric r esults) [facility] ([facility]) REFERENCE RANGES: 4.5-5.6% NORMAL 5.7-6.4% SUGGESTS IMPAIRED GLUCOSE META BOLISM >= 6.5% ABNORMAL ID Date Data Source [id number] 06/14/2019 07:06:00 AM EST [facility] ([facility]) Name Value Range Interpretation Code Description Data Tisha rce(s) Supporting Document(s) Malb Urine Siemens 51.4 mg/L Normal (applies to non-numer ic results) [facility] ([facility]) Creatinine, Urine 54.9 mg/dL Normal (applies to non-numeri c results) [facility] ([facility]) Kevyn/Creat Ratio 93.6 MCG/MG 0.0-30.0 Above high normal [facility] THE [employer] STATES THAT MICROALBUMINURIA IS PRESENT IF THE MICROALBUMIN/CREATININE RATIO EXCEEDS 30 MCG/MG. THE THRESHOLD FOR CLINICAL ALBUMINURIA IS REACHED AT 300 MCG/MG. THE CLASSIFICATION OF A PATIENT SHOULD BE BASED UPON AT LEAST 2 OF 3 ABNORMAL RESULTS ON SPECIMENS COLLECTED WITHIN A 3 TO 6 MONTH TIME FRAME. ID Date Data Source [id number] 06/14/2019 07:02:00 AM EST [facility] ([facility]) Name Value Range Interpretation Code Description Data Tisha rce(s) Supporting Document(s) Hemoglobin A1c 10.4 % Normal (applies to non-numeric r esults) [facility] ([facility]) REFERENCE RANGES: 4.5-5.6% NORMAL 5.7-6.4% SUGGESTS IMPAIRED GLUCOSE META BOLISM >= 6.5% ABNORMAL Estimated Average Glucose 252 mg/dL 60-110 Above high normal [facility] ([facility]) ID Date Data Source [id number] 06/14/2019 07:02:00 AM EST [facility] ([facility]) Name Value Range Interpretation Code Description Data Tisha rce(s) Supporting Document(s) Cholesterol Level 218 mg/dL Above high normal [facility] ([facility]) Triglycerides Level 384 mg/dL Above high normal [facility] HDL Cholesterol 34 mg/dL Below low normal [facility] ([facility]) LDL Cholesterol 107 mg/dL Above high normal [facility] ([facility]) Non-HDL-C 184 mg/dL Normal (applies to non-numeric resul ts) [facility] ([facility]) Cholesterol Risk Ratio 6.411 Above high normal [facility] ([facility]) ID Date Data Source [id number] 06/14/2019 07:02:00 AM EST [facility] ([facility]) Name Value Range Interpretation Code Description Data Tisha rce(s) Supporting Document(s) Creatinine For GFR 1.23 mg/dL 0.55-1.30 Normal (applies to non -numeric results) [facility] ([facility]) Glucose, Fasting 265 mg/dL 70-100 Above high normal [facility] ([facility]) Blood Urea Nitrogen 23 mg/dL 7-18 Above high normal [facility] ([facility]) Sodium Level 137 meq/L 136-145 Normal (applies to non-numeric res ults) [facility] ([facility]) Potassium Serum 4.4 meq/L 3.5-5.1 Normal (applies to non-numeric results) [facility] ([facility]) Glomerular Filtration Rate 48.8 Below low normal [facility] <content>Units are mL/min/1.73 m2</content>
<content></content>
<content>Chronic Kidney Disease Staging per NKF:</content>
<content></content>
<content>Stage I & II GFR >=60 Normal to Mildly Decreased</content>
<content>Stage III GFR 30- 59 Moderately Decreased</content>
<content>Stage IV GFR 15-29 Severely Decreased</content>
<content>Stage V GFR <15 Very Little GFR Left</content>
<content>ESRD GFR <15 on CEMETERY MANAGER</content>
<content></content> Anion Gap 4 meq/L 8-16 Below low normal [facility] ( [facility]) Chloride Level 104 meq/L 98-107 Normal (applies to non-numeric r esults) [facility] ([facility]) Carbon Dioxide Level 29 meq/L 21-32 Normal (applies to non-num denita results) [facility] ([facility]) Alkaline Phosphatase 158 U/L 45-117 Above high normal [facility] ([facility]) Calcium Level 9.4 mg/dL 8.5-10.1 Normal (applies to non-numeric re sults) [facility] ([facility]) Ast/Sgot 10 U/L 7-37 Normal (applies to non-numeric resul ts) [facility] ([facility]) Alt/SGPT 13 U/L 12-78 Normal (applies to non-numeric resul ts) [facility] ([facility]) Bilirubin,Total 0.2 mg/dL 0.2-1.0 Normal (applies to non-numeric results) [facility] ([facility]) Albumin 3.2 GM/DL 3.2-5.2 Normal (applies to non-numeric resul ts) [facility] ([facility]) Total Protein 7.1 GM/DL 6.4-8.2 Normal (applies to non-numeric re sults) [facility] ([facility]) Albumin/Globulin Ratio 0.82 1.00-1.93 Below low normal [facility] ([facility]) ID Date Data Source [id number] 06/14/2019 07:02:00 AM EST [facility] ([facility]) Name Value Range Interpretation Code Description Data Tisha rce(s) Supporting Document(s) Red Blood Count 5.29 10 4.00-5.40 Normal (applies to non-numeric results) [facility] ([facility]) White Blood Count 10.4 10 4.0-10.0 Above high normal [facility] ([facility]) Hematocrit 46.0 % 36.0-47.0 Normal (applies to non-numeric resul ts) [facility] ([facility]) Hemoglobin 14.7 g/dL 12.0-15.5 Normal (applies to non-numeric resul ts) [facility] ([facility]) Mean Corpuscular Hemoglobin 27.8 pg 27.0-33.0 Norm al (applies to non-numeric results) [facility] ([facility]) Mean Corpuscular Volume 87.0 fl 80.0-96.0 Normal ( applies to non-numeric results) [facility] ([facility]) Platelet Count, Automated 358 10 150-450 Normal (applies to non-numeric results) [facility] ([facility]) Mean Corpuscular HGB Conc 32.0 g/dL 32.0-36.5 Normal (applies to non-numeric results) [facility] ([facility]) Red Cell Distribution Width 13.3 % 11.5-14.5 Norm al (applies to non-numeric results) [facility] ([facility]) Luce % 6.6 % 0.0-5.0 Above high normal [facility] ([facility]) Lymph % 26.2 % 24.0-44.0 Normal (applies to non-numeric resul ts) [facility] ([facility]) Neutrophils % 62.4 % 36.0-66.0 Normal (applies to non-numeric re sults) [facility] ([facility]) Eos % 3.3 % 0.0-3.0 Above high normal [facility] ([facility]) Baso % 0.9 % 0.0-1.0 Normal (applies to non-numeric resul ts) [facility] ([facility]) Immature Granulocyte % 0.6 % 0-3.0 Normal (applies to non-n umeric results) [facility] ([facility]) Lymph # 2.7 10 1.5-5.0 Normal (applies to non-numeric resul ts) [facility] ([facility]) Luce # 0.7 10 0.0-0.8 Normal (applies to non-numeric resul ts) [facility] ([facility]) Nucleated Red Blood Cell % 0.0 % 0-0 Normal (applies to n on-numeric results) [facility] ([facility]) Neutrophils # 6.5 10 1.5-8.5 Normal (applies to non-numeric re sults) [facility] ([facility]) Eos # 0.3 10 0.0-0.5 Normal (applies to non-numeric resul ts) [facility] ([facility]) Baso # 0.1 10 0.0-0.2 Normal (applies to non-numeric resul ts) [facility] ([facility]) ID Date Data Source [id number] 05/17/2019 10:02:00 AM EST [facility] ([facility]) Name Value Range Interpretation Code Description Data Tisha rce(s) Supporting Document(s) Glucose [Mass/volume] in Capillary blood by Glucometer 240 mg/dL 70-105 Above high normal [facility] ([facility]) ID Date Data Source [id number] 05/17/2019 10:02:00 AM EST [facility] ([facility] Name Value Range Interpretation Code Description Data Tisha rce(s) Supporting Document(s) Glucose [Mass/volume] in Capillary blood by Glucometer 240 mg/dL 70-105 Above high normal [facility] ([facility], ) ID Date Data Source [id number] 05/17/2019 07:30:00 AM EST [facility] ([facility]) Name Value Range Interpretation Code Description Data Tisha rce(s) Supporting Document(s) Glucose [Mass/volume] in Capillary blood by Glucometer 344 mg/dL 70-105 Above high normal [facility] ([facility]) ID Date Data Source [id number] 05/17/2019 07:30:00 AM EST [facility] Name Value Range Interpretation Code Description Data Tisha rce(s) Supporting Document(s) Glucose [Mass/volume] in Capillary blood by Glucometer 344 mg/dL 70-105 Above high normal [facility] ([facility], ) ID Date Data Source [id number] 05/17/2019 07:20:00 AM EST [facility] ([facility]) Name Value Range Interpretation Code Description Data Tisha rce(s) Supporting Document(s) Creatinine For GFR 0.97 mg/dL 0.55-1.30 Normal (applies to non -numeric results) [facility] ([facility]) Blood Urea Nitrogen 22 mg/dL 7-18 Above high normal [facility] ([facility]) Glucose, Fasting 402 mg/dL 70-100 Above upper panic limits [facility] ([facility]) Glomerular Filtration Rate Laboratory test result Normal (applies to non- numeric results) [facility] ([facility]) <content>Units are mL/min/1.73 m2</content>
<content></content>
<content>Chronic Kidney Disease Staging per NKF:</content>
<content></content>
<content>Stage I & II GFR >=60 Normal to Mildly Decreased</content>
<content>Stage III GFR 30- 59 Moderately Decreased</content>
<content>Stage IV GFR 15-29 Severely Decreased</content>
<content>Stage V GFR <15 Very Little GFR Left</content>
<content>ESRD GFR <15 on CEMETERY MANAGER</content>
<content></content> Potassium Serum 4.8 meq/L 3.5-5.1 Normal (applies to non-numeric results) [facility] ([facility]) Sodium Level 136 meq/L 136-145 Normal (applies to non-numeric res ults) [facility] ([facility]) Carbon Dioxide Level 29 meq/L 21-32 Normal (applies to non-num denita results) [facility] ([facility]) Chloride Level 101 meq/L 98-107 Normal (applies to non-numeric r esults) [facility] ([facility]) Calcium Level 8.7 mg/dL 8.5-10.1 Normal (applies to non-numeric re sults) [facility] ([facility]) Anion Gap 6 meq/L 8-16 Below low normal [facility] ( [facility]) ID Date Data Source [id number] 05/17/2019 07:20:00 AM EST [facility] ([facility]) Name Value Range Interpretation Code Description Data Tisha rce(s) Supporting Document(s) Red Blood Count 5.26 10 4.00-5.40 Normal (applies to non-numeric results) [facility] ([facility]) Hemoglobin 14.7 g/dL 12.0-15.5 Normal (applies to non-numeric resul ts) [facility] ([facility]) White Blood Count 9.7 10 4.0-10.0 Normal (applies to non-numeri c results) [facility] ([facility]) Mean Corpuscular Volume 87.5 fl 80.0-96.0 Normal ( applies to non-numeric results) [facility] ([facility]) Hematocrit 46.0 % 36.0-47.0 Normal (applies to non-numeric resul ts) [facility] ([facility]) Mean Corpuscular HGB Conc 32.0 g/dL 32.0-36.5 Normal (applies to non-numeric results) [facility] ([facility]) Mean Corpuscular Hemoglobin 27.9 pg 27.0-33.0 Norm al (applies to non-numeric results) [facility] ([facility]) Nucleated Red Blood Cell % 0.0 % 0-0 Normal (applies to n on-numeric results) [facility] ([facility]) Platelet Count, Automated 268 10 150-450 Normal (applies to non-numeric results) [facility] ([facility]) Red Cell Distribution Width 13.1 % 11.5-14.5 Norm al (applies to non-numeric results) [facility] ([facility]) ID Date Data Source [id number] 05/17/2019 07:20:00 AM EST [facility] ([facility]) Name Value Range Interpretation Code Description Data Tisha rce(s) Supporting Document(s) Blood Urea Nitrogen 22 mg/dL 7-18 Above high normal [facility] ([facility]) Creatinine For GFR 0.97 mg/dL 0.55-1.30 Normal (applies to non -numeric results) [facility] ([facility], ) Glucose, Fasting 402 mg/dL 70-100 Above upper panic limits [facility] ([facility]) Glomerular Filtration Rate Laboratory test result Normal (applies to non- numeric results) [facility] ([facility]) <content>Units are mL/min/1.73 m2</content>
<content></content>
<content>Chronic Kidney Disease Staging per NKF:</content>
<content></content>
<content>Stage I & II GFR >=60 Normal to Mildly Decreased</content>
<content>Stage III GFR 30- 59 Moderately Decreased</content>
<content>Stage IV GFR 15-29 Severely Decreased</content>
<content>Stage V GFR <15 Very Little GFR Left</content>
<content>ESRD GFR <15 on CEMETERY MANAGER</content>
<content></content> Sodium Level 136 meq/L 136-145 Normal (applies to non-numeric res ults) [facility] ([facility], ) Potassium Serum 4.8 meq/L 3.5-5.1 Normal (applies to non-numeric results) [facility] ([facility]) Chloride Level 101 meq/L 98-107 Normal (applies to non-numeric r esults) [facility] ([facility]) Anion Gap 6 meq/L 8-16 Below low normal [facility] ( [facility]) Carbon Dioxide Level 29 meq/L 21-32 Normal (applies to non-num denita results) [facility] ([facility]) Calcium Level 8.7 mg/dL 8.5-10.1 Normal (applies to non-numeric re sults) [facility] ([facility]) ID Date Data Source [id number] 05/17/2019 07:20:00 AM EST [facility] ([facility]) Name Value Range Interpretation Code Description Data Tisha rce(s) Supporting Document(s) White Blood Count 9.7 10 4.0-10.0 Normal (applies to non-numeri c results) [facility] ([facility], ) Hemoglobin 14.7 g/dL 12.0-15.5 Normal (applies to non-numeric resul ts) [facility]) Red Blood Count 5.26 10 4.00-5.40 Normal (applies to non-numeric results) [facility] ([facility]) Hematocrit 46.0 % 36.0-47.0 Normal (applies to non-numeric resul ts) [facility]) Mean Corpuscular Hemoglobin 27.9 pg 27.0-33.0 Norm al (applies to non-numeric results) [facility] ([facility]) Mean Corpuscular Volume 87.5 fl 80.0-96.0 Normal ( applies to non-numeric results) [facility] ([facility]) Mean Corpuscular HGB Conc 32.0 g/dL 32.0-36.5 Normal (applies to non-numeric results) [facility] ([facility]) Platelet Count, Automated 268 10 150-450 Normal (applies to non-numeric results) [facility] ([facility]) Red Cell Distribution Width 13.1 % 11.5-14.5 Norm al (applies to non-numeric results) [facility] ([facility]) Nucleated Red Blood Cell % 0.0 % 0-0 Normal (applies to n on-numeric results) [facility] ([facility]) ID Date Data Source [id number] 03/21/2019 12:06:00 PM EST [facility] ([facility]) Name Value Range Interpretation Code Description Data Tisha rce(s) Supporting Document(s) Glucose [Mass/volume] in Capillary blood by Glucometer 444 mg/dL 70-105 Above high normal [facility] ([facility]) ID Date Data Source [id number] 03/21/2019 10:07:00 AM EST [facility] ([facility]) Name Value Range Interpretation Code Description Data Tisha rce(s) Supporting Document(s) Venous PH 7.377 units 7.330-7.430 Normal (applies to non-numeric res ults) [facility] ([facility]) Venous Total Co2 25.0 meq/L 24.0-28.0 Normal (applies to non-numeric results) [facility] ([facility]) Venous Partial Pressure O2 78.8 mmHg 30.0-50.0 Above high normal [facility] ([facility]) Venous Partial Pressure Co2 41.3 mmHg 38.0-50.0 Norm al (applies to non-numeric results) [facility] ([facility]) Venous Base Excess -1.4 Normal (applies to non-numer ic results) [facility] ([facility]) Venous Hco3 23.7 meq/L 23.0-27.0 Normal (applies to non-numeric resu lts) [facility] ([facility]) Venous Standard Hco3 23.3 meq/L Normal (applies to non-num denita results) [facility] ([facility]) Venous O2 Saturation 96.1 % 60.0-80.0 Above high normal [facility] ([facility]) ID Date Data Source [id number] 03/21/2019 10:07:00 AM EST [facility] ([facility]) Name Value Range Interpretation Code Description Data [facility] rce(s) Supporting Document(s) Appearance, Urine RFX Laboratory test result Nor mal (applies to non-numeric results) [facility] ([facility]) PH,Urine RFX 6.0 units 5.0-9.0 Normal (applies to non-numeric res ults) [facility] ([facility]) Specific [place] [facility] Auto RFX 1.025 1.002-1.035 Nor mal (applies to non-numeric results) [facility] ([facility]) Color, Urine RFX Laboratory test result Normal ( applies to non-numeric results) [facility] ([facility]) Glucose, Urine (Ua) Auto RFX Laboratory test result Above high normal [facility] ([facility]) Ketone, Urine Auto RFX Laboratory test result No rmal (applies to non-numeric results) [facility] ([facility]) Protein, Urine Auto RFX Laboratory test result N ormal (applies to non-numeric results) [facility] ([facility]) Nitrite, Urine Auto RFX Laboratory test result N ormal (applies to non-numeric results) [facility] ([facility]) Bilirubin, Urine Auto RFX Laboratory test result Normal (applies to non- numeric results) [facility] ([facility]) Urobilinogen, Urine Auto RFX 0.2 mg/dL 0.0-2.0 Nor mal (applies to non-numeric results) [facility] ([facility]) Blood, Urine Blood RFX Laboratory test result No rmal (applies to non-numeric results) [facility] ([facility]) WBC, Urine Auto RFX 2 /HPF 0-3 Normal (applies to non-nume yogesh results) [facility] ([facility]) Leukocyte Esterase Ur Auto RFX Laboratory test result Abov e high normal [facility] ([facility]) Bacteria, Urine Auto RFX Laboratory test result Normal (applies to non-numeric results) [facility] ([facility]) RBC, Urine Auto RFX 2 /HPF 0-3 Normal (applies to non-nume yogesh results) [facility] ([facility]) Squam Epithelial Cell Ur Aurfx 0 /HPF 0-6 N ormal (applies to non-numeric results) [facility] ([facility]) Hyaline Cast, Urine Auto RFX 0 /LPF 0-1 Normal (appl ies to non-numeric results) [facility] ([facility]) ID Date Data Source [id number] 03/21/2019 09:48:00 AM EST [facility] ([facility]) Name Value Range Interpretation Code Description Data Tisha rce(s) Supporting Document(s) Phosphate [Moles/volume] in Serum or Plasma 5.2 mg/dL 2.5-4.9 Above high normal [facility] ([facility]) <content>note:<nlbl:demographic_changed> </content>
<content></content> Acetone [Mass/volume] in Serum or Plasma 2.47 mg/dL Normal (applies to non- numeric results) [facility] ([facility]) <content>note:<nlbl:demographic_changed> </content>
<content></content> Lipase [Enzymatic activity/volume] in Serum or Plasma 294 U/L 73-393 Normal (applies to non-numeric results) [facility] ([facility]) <content>note:<nlbl:demographic_changed> </content>
<content></content> Magnesium [Mass/volume] in Serum or Plasma 2.2 mg/dL 1.8-2 .4 Normal (applies to non-numeric results) [facility] ([facility]) <content>note:<nlbl:demographic_changed> </content>
<content></content> Osmolality of Serum or Plasma 322 MOSM/KG 275-295 Above high nellie l [facility] ([facility]) <content>note:<nlbl:demographic_changed> </content>
<content></content> ID Date Data Source [id number] 03/21/2019 09:48:00 AM EST [facility] ([facility]) Name Value Range Interpretation Code Description Data Tisha rce(s) Supporting Document(s) Blood Urea Nitrogen 28 mg/dL 7-18 Above high normal [facility] ([facility]) Creatinine For GFR 1.19 mg/dL 0.55-1.30 Normal (applies to non -numeric results) [facility] ([facility]) Glucose, Fasting 909 mg/dL 70-100 Above upper panic limits [facility] ([facility]) Potassium Serum 6.1 meq/L 3.5-5.1 Above upper panic limits [facility] ([facility]) Glomerular Filtration Rate 50.9 Below low normal [facility] ([facility]) <content>Units are mL/min/1.73 m2</content>
<content></content>
<content>Chronic Kidney Disease Staging per NKF:</content>
<content></content>
<content>Stage I & II GFR >=60 Normal to Mildly Decreased</content>
<content>Stage III GFR 30- 59 Moderately Decreased</content>
<content>Stage IV GFR 15-29 Severely Decreased</content>
<content>Stage V GFR <15 Very Little GFR Left</content>
<content>ESRD GFR <15 on CEMETERY MANAGER</content>
<content></content> Sodium Level 123 meq/L 136-145 Below low normal [facility] ([facility]) Anion Gap 10 meq/L 8-16 Normal (applies to non-numeric resul ts) [facility] ([facility]) Carbon Dioxide Level 26 meq/L 21-32 Normal (applies to non-num denita results) [facility] ([facility]) Chloride Level 87 meq/L 98-107 Below low normal [facility] ([facility]) Calcium Level 9.4 mg/dL 8.5-10.1 Normal (applies to non-numeric re sults) [facility] ([facility]) ID Date Data Source [id number] 03/21/2019 09:48:00 AM EST [facility] ([facility]) Name Value Range Interpretation Code Description Data Tisha rce(s) Supporting Document(s) Alt/SGPT 18 U/L 12-78 Normal (applies to non-numeric resul ts) [facility] ([facility]) Ast/Sgot 22 U/L 7-37 Normal (applies to non-numeric resul ts) [facility] ([facility]) Bilirubin,Total 0.4 mg/dL 0.2-1.0 Normal (applies to non-numeric results) [facility] ([facility]) Alkaline Phosphatase 218 U/L 45-117 Above [facility] Bilirubin,Direct Laboratory test result 0.0-0.2 Normal ( applies to non-numeric results) [facility] ([facility]) Albumin 3.3 GM/DL 3.2-5.2 Normal (applies to non-numeric resul ts) [facility] ([facility]) Albumin/Globulin Ratio 0.75 1.00-1.93 Below low normal [facility] Total Protein 7.7 GM/DL 6.4-8.2 Normal (applies to non-numeric re sults) [facility] ([facility]) ID Date Data Source [id number] 03/21/2019 09:48:00 AM EST [facility] ([facility]) Name Value Range Interpretation Code Description Data Tisha rce(s) Supporting Document(s) White Blood Count 8.4 10 4.0-10.0 Normal (applies to non-numeri c results) [facility] ([facility]) Hemoglobin 15.7 g/dL 12.0-15.5 Above high normal [facility] ([facility]) Red Blood Count 5.37 10 4.00-5.40 Normal (applies to non-numeric results) [facility] ([facility]) Mean Corpuscular Volume 84.0 fl 80.0-96.0 Normal ( applies to non-numeric results) [facility] ([facility]) Mean Corpuscular Hemoglobin 29.2 pg 27.0-33.0 Norm al (applies to non-numeric results) [facility] ([facility]) Hematocrit 45.1 % 36.0-47.0 Normal (applies to non-numeric resul ts) [facility] ([facility]) Mean Corpuscular HGB Conc 34.8 g/dL 32.0-36.5 Normal (applies to non-numeric results) [facility] ([facility]) Platelet Count, Automated 307 10 150-450 Normal (applies to non-numeric results) [facility] ([facility]) Red Cell Distribution Width 13.1 % 11.5-14.5 Norm al (applies to non-numeric results) [facility] ([facility]) Luce % 4.3 % 0.0-5.0 Normal (applies to non-numeric resul ts) [facility] ([facility]) Lymph % 18.7 % 24.0-44.0 Below low normal [facility] ( [facility]) Neutrophils % 73.3 % 36.0-66.0 Above high normal [facility] ([facility]) Baso % 1.0 % 0.0-1.0 Normal (applies to non-numeric resul ts) [facility] ([facility]) Eos % 2.5 % 0.0-3.0 Normal (applies to non-numeric resul ts) [facility] ([facility]) Immature Granulocyte % 0.2 % 0-3.0 Normal (applies to non-n umeric results) [facility] ([facility]) Neutrophils # 6.2 10 1.5-8.5 Normal (applies to non-numeric re sults) [facility] ([facility]) Nucleated Red Blood Cell % 0.0 % 0-0 Normal (applies to n on-numeric results) [facility] ([facility]) Lymph # 1.6 10 1.5-5.0 Normal (applies to non-numeric resul ts) [facility] ([facility]) Luce # 0.4 10 0.0-0.8 Normal (applies to non-numeric resul ts) [facility] ([facility]) Eos # 0.2 10 0.0-0.5 Normal (applies to non-numeric resul ts) [facility] ([facility]) Baso # 0.1 10 0.0-0.2 Normal (applies to non-numeric resul ts) [facility] ([facility]) ID Date Data Source [id number] 03/21/2019 09:48:00 AM EST [facility] ([facility]) Name Value Range Interpretation Code Description Data Tisha rce(s) Supporting Document(s) Venous Partial Pressure Co2 47.9 mmHg 38.0-50.0 Norm al (applies to non-numeric results) [facility] ([facility]) Venous PH 7.339 units 7.330-7.430 Normal (applies to non-numeric res ults) [facility] ([facility]) Venous Partial Pressure O2 81.5 mmHg 30.0-50.0 Above high normal [facility] ([facility]) Venous Hco3 25.2 meq/L 23.0-27.0 Normal (applies to non-numeric resu lts) [facility] ([facility]) Venous Total Co2 26.7 meq/L 24.0-28.0 Normal (applies to non-numeric results) [facility] ([facility]) Venous Base Excess -1.2 Normal (applies to non-numer ic results) [facility] ([facility]) Venous O2 Saturation 95.2 % 60.0-80.0 Above high normal [facility] ([facility]) Venous Standard Hco3 23.4 meq/L Normal (applies to non-num denita results) [facility] ([facility]) Procedure Social History Code Duration Value Status Description Data Source(s ) Smoking 05/10/2020 12:00:00 AM EST Current Smoker completed [facility] Smoking 05/10/2020 12:00:00 AM EST Current Smoker completed [facility] Sm[facility] ([facility]) 04/24/2020 12:00:00 AM EST Patient is a current smoker, smokes every day completed Patient is a current smoker, smokes every day [facility] ( [facility]) Alcohol intake 04/11/2020 12:00:00 AM EST No completed [facility] Cigarette pack-years 04/11/2020 12:00:00 AM EST UNK completed [facility] Cigarettes smoked current (pack per day) - Reported 04/11/20 12:00:00 AM EST UNK completed [facility] Smoking 04/11/2020 12:00:00 AM EST Current every day smoker co mpleted Current every day smoker [facility] Smoking 04/05/2020 12:00:00 AM EST Current Smoker completed [facility]re nt Smoker eCW1 ([facility]) Smoking 04/05/2020 12:00:00 AM EST Current Smoker completed [facility]re nt Smoker eCW1 ([facility]) Smoking 04/05/2020 12:00:00 AM EST Current Smoker completed [facility]re nt Smoker eCW1 ([facility]) Alcohol intake 04/01/2020 12:00:[address] EST No completed [facility] Cigarette pack-years 04/01/2020 12:00:00 AM EST UNK completed [facility] Cigarettes smoked current (pack per day) - Reported 04/01/20 12:00:00 AM EST UNK completed [facility] Smoking 04/01/2020 12:00:00 AM EST Current every day smoker co mpleted Current every day smoker [facility] Smoking 03/28/2020 12:00:00 AM EST Current Smoker completed Curre nt Smoker eCW1 ([facility]) ETOH Use 03/21/2020 12:00:00 AM EST Denies alcohol use complete d Denies alcohol use [facility] ([facility] Smoking 03/21/2020 12:00:00 AM EST Former Cigarette Smok er 1 Pack Daily completed Former Cigarette Smoker 1 Pack Daily [facility] ([facility]) Smoking 03/21/2020 12:00:00 AM EST Current Smoker completed Curre nt Smoker eCW1 ([facility]) Smoking 02/29/2020 12:00:00 AM EST Current Smoker completed Curre nt Smoker eCW1 ([facility]) Smoking 02/29/2020 12:00:00 AM EST Current Smoker completed Curre nt Smoker eCW1 ([facility]) Smoking 02/29/2020 12:00:00 AM EST Current Smoker completed Curre nt Smoker eCW1 ([facility]) Smoking 02/29/2020 12:00:00 AM EST Current Smoker completed Curre nt Smoker eCW1 ([facility]) Smoking 02/29/2020 12:00:00 AM EST Current Smoker completed [facility] Smoker eCW[facility] ([facility]) Alcohol intake 02/13/2020 12:00:[address] [facility] [facility] Cigarette pack-years 02/13/2020 12:00:00 AM EDT UNK completed [facility] Cigarettes smoked current (pack per day) - Reported 02/13/20 12:00:00 AM EDT UNK completed [facility] Smoking 02/13/2020 12:00:00 AM EDT Current every day smoker co mpleted Current every day smoker [facility] Alcohol intake 02/05/2020 12:00:[address] [facility] Cigarette pack-years 02/05/2020 12:00:00 AM EDT UNK completed [facility] Cigarettes smoked current (pack per day) - Reported 02/05/20 20 12:00:00 AM EDT UNK completed [facility] Smoking 02/05/2020 12:00:00 AM EDT Current every day smoker co mpleted Current every day smoker [facility] Smoking 02/02/2020 12:00:00 AM EDT Current Smoker completed [facility] Sm[facility] eCW1 ([facility]) Smoking 02/02/2020 12:00:00 AM EDT Current Smoker completed [facility] Smoker eCW1 ([facility]) Smoking 02/02/2020 12:00:00 AM EDT Current Smoker completed [facility] Smoker eCW1 ([facility]) Smoking 02/02/2020 12:00:00 AM EDT Current Smoker completed [facility]re nt Smoker eCW1 ([facility]) Smoking 02/02/2020 12:00:00 AM EDT Current Smoker completed [facility] Smoker eCW1 ([facility]) Smoking 02/02/2020 12:00:00 AM EDT Current Smoker completed [facility] Smoker eCW1 ([facility]) Vital Signs ID Date Data Source UNK Name Value Range Interpretation Code Description Data Source(s) Diastolic blood pressure 56 mm[Hg] 56 mm[Hg] eCW1 ([facility]) Systolic blood pressure 108 mm[Hg] 108 mm[Hg] e CW1 ([facility]) Body temperature 97.8 [degF] 97.8 [degF] eCW1 ( [facility]) Respiratory rate 16 /min 16 /min eCW1 ([facility]) Heart rate 95 /min 95 /min eCW1 ([facility]) Body mass index (BMI) [Ratio] 29.18 kg/m2 29.18 kg/m2 W1 ([facility]) Body height 64 [in_i] 64 [in_i] eCW1 ([facility]) Body weight 170 [lb_av] 170 [lb_av] eCW1 ([facility]) Diastolic blood pressure 60 mm[Hg] 60 mm[Hg] eCW1 ([facility]) Systolic blood pressure 130 mm[Hg] 130 mm[Hg] e CW1 ([facility]) Body temperature 96.9 [degF] 96.9 [degF] eCW1 ( [facility]) Heart rate 105 /min 105 /min eCW1 ([facility]) Body mass index (BMI) [Ratio] 29.18 kg/m2 29.18 kg/m2 eCW1 ([facility]) Body height 64 [in_i] 64 [in_i] eCW1 ([facility]) Body weight 170 [lb_av] 170 [lb_av] eCW1 ([facility]) Oxygen saturation in Arterial blood by Pulse oximetry 97 % 97 % [facility] Body mass index (BMI) [Ratio] 30.04 kg/m2 30.04 kg/m2 [facility] Body weight 79.[address] [facility] Body height 162.[address] [facility] Heart rate 88 /min 88 /min [facility] Diastolic blood pressure 58 mm[Hg] 58 mm[Hg] [facility] Systolic blood pressure 100 mm[Hg] 100 mm[Hg] [facility] Body mass index (BMI) [Ratio] 29.2 kg/m2 [...] by Pulse oximetry 96 % 96 % [facility] Respiratory rate 18 /min 18 /min [facility] Body temperature 36.61 Simi 36.61 Simi [facility] Heart rate 71 /min 71 /min [facility] Diastolic blood pressure 81 mm[Hg] 81 mm[Hg] [facility] Systolic blood pressure 170 mm[Hg] 170 mm[Hg] [facility] Body mass index (BMI) [Ratio] 31.86 kg/m2 31.86 kg/m2 [facility] Body weight 84.[address] [facility] Body height 162.[address] [facility] Diastolic blood pressure 91 mm[Hg] 91 mm[Hg] eCW1 ([facility]) Systolic blood pressure 156 mm[Hg] 156 mm[Hg] e CW1 ([facility]) Body temperature 96 [degF] 96 [degF] eCW1 ([facility]) Respiratory rate 18 /min 18 /min eCW1 ([facility]) Heart rate 93 /min 93 /min eCW1 ([facility]) Body mass index (BMI) [Ratio] 29.18 kg/m2 29.18 kg/m2 W1 ([facility]) Body height 64 [in_i] 64 [in_i] eCW1 ([facility]) Body weight kg eCW1 ([facility]) Body weight 170 [lb_av] 170 [lb_av] eCW1 ([facility]) Oxygen saturation in Arterial blood by Pulse oximetry 97 % 97 % [facility] Body mass index (BMI) [Ratio] 30.38 kg/m2 30.38 kg/m2 [facility] Body weight 80.[address] [facility] Body height 162.[address] [facility] Heart rate 85 /min 85 /min [facility] Diastolic blood pressure 60 mm[Hg] 60 mm[Hg] [facility] Systolic blood pressure 100 mm[Hg] 100 mm[Hg] [facility] Diastolic blood pressure 58 mm[Hg] 58 mm[Hg] eCW1 ([facility]) Systolic blood pressure 118 mm[Hg] 118 mm[Hg] e CW1 ([facility]) Body temperature 97.9 [degF] 97.9 [degF] eCW1 ( [facility]) Respiratory rate 18 /min 18 /min eCW1 ([facility]) Heart rate 94 /min 94 /min eCW1 ([facility]) Body mass index (BMI) [Ratio] 29.18 kg/m2 29.18 kg/m2 eCW1 ([facility]) Body height 64 [in_i] 64 [in_i] eCW1 ([facility]) Body weight kg eCW1 ([facility]) Body weight 170 [lb_av] 170 [lb_av] eCW1 ([facility]) Body mass index (BMI) [Ratio] 29.2 kg/m2 29.2 k g/m2 MED[facility] ([facility]) Body weight 77.112 kg 77.112 kg [facility] ([facility] Body weight 170.00 [lb_av] 170.00 [lb_av] MEDEN T ([facility]) Body height 64 [in_i] 64 [in_i] [facility] ([facility]) 5'4" Diastolic blood pressure 50 mm[Hg] 50 mm[Hg] [facility] ([facility]) Systolic blood pressure 80 mm[Hg] 80 mm[Hg] M EDENT ([facility]) Diastolic blood pressure 50 mm[Hg] 50 mm[Hg] [facility] ([facility]) Systolic blood pressure 90 mm[Hg] 90 mm[Hg] M EDENT ([facility]) Diastolic blood pressure 61 mm[Hg] 61 mm[Hg] eCW1 ([facility]) Systolic blood pressure 131 mm[Hg] 131 mm[Hg] e CW1 ([facility]) Body temperature 96.5 [degF] 96.5 [degF] eCW1 ( [facility]) Respiratory rate 20 /min 20 /min eCW1 ([facility]) Heart rate 94 /min 94 /min eCW1 ([facility]) Body mass index (BMI) [Ratio] 29.18 kg/m2 29.18 kg/m2 eCW1 ([facility]) Body height 64 [in_i] 64 [in_i] eCW1 ([facility]) Body weight kg eCW1 ([facility]) Body weight 170 [lb_av] 170 [lb_av] eCW1 ([facility]) Body mass index (BMI) [Ratio] 29.2 kg/m2 [...] temperature 95.6 [degF] 95.6 [degF] eCW1 ( [facility]) Respiratory rate 22 /min 22 /min eCW1 ([facility]) Heart rate 81 /min 81 /min eCW1 ([facility]) Body mass index (BMI) [Ratio] 29.18 kg/m2 29.18 kg/m2 eCW1 ([facility]) Body height 64 [in_i] 64 [in_i] eCW1 ([facility]) Body weight kg eCW1 ([facility]) Body weight 170 [lb_av] 170 [lb_av] eCW1 ([facility]) Oxygen saturation in Arterial blood by Pulse oximetry 95 % 95 % [facility] Respiratory rate 18 /min 18 /min [facility] Body temperature 37.06 Simi 37.06 Simi [facility] Heart rate 89 /min 89 /min [facility] Diastolic blood pressure 55 mm[Hg] 55 mm[Hg] [facility] Systolic blood pressure 114 mm[Hg] 114 mm[Hg] [facility] Body mass index (BMI) [Ratio] 28.84 kg/m2 28.84 kg/m2 [facility] Body weight 76.[address] [facility] Body height 162.[address] [facility] Heart rate 98 /min 98 /min [facility] Diastolic blood pressure 79 mm[Hg] 79 mm[Hg] [facility] Systolic blood pressure 157 mm[Hg] 157 mm[Hg] [facility] Oxygen saturation in Arterial blood by Pulse oximetry 97 % 97 % [facility] Respiratory rate 18 /min 18 /min [facility] Body temperature 36.61 Simi 36.61 Simi [facility] Body mass index (BMI) [Ratio] 30.86 kg/m2 30.86 kg/m2 [facility] Body weight 81.[address] [facility] Body height 162.[address] [facility] Diastolic blood pressure 77 mm[Hg] 77 mm[Hg] eCW1 ([facility]) Systolic blood pressure 133 mm[Hg] 133 mm[Hg] e CW1 ([facility]) Body temperature 96.0 [degF] 96.0 [degF] eCW1 ( [facility]) Respiratory rate 19 /min 19 /min eCW1 ([facility]) Heart rate 100 /min 100 /min eCW1 ([facility]) Body mass index (BMI) [Ratio] 27.46 kg/m2 27.46 kg/m2 W1 ([facility]) Body height 64 [in_i] 64 [in_i] eCW1 ([facility]) Body weight kg eCW1 ([facility]) Body weight 160 [lb_av] 160 [lb_av] eCW1 ([facility]) Diastolic blood pressure 60 mm[Hg] 60 mm[Hg] eCW1 ([facility]) Systolic blood pressure 113 mm[Hg] 113 mm[Hg] e CW1 ([facility]) Body temperature 96.9 [degF] 96.9 [degF] eCW1 ( [facility]) Respiratory rate 20 /min 20 /min eCW1 ([facility]) Heart rate 99 /min 99 /min eCW1 ([facility]) Body mass index (BMI) [Ratio] 27.46 kg/m2 27.46 kg/m2 W1 ([facility]) Body height 64 [in_i] 64 [in_i] eCW1 ([facility]) Body weight kg eCW1 ([facility]) Body weight 160 [lb_av] 160 [lb_av] eCW1 ([facility]) Diastolic blood pressure 76 mm[Hg] 76 mm[Hg] eCW1 ([facility]) Systolic blood pressure 149 mm[Hg] 149 mm[Hg] e CW1 ([facility]) Body temperature 96.6 [degF] 96.6 [degF] eCW1 ( [facility]) Respiratory rate 20 /min 20 /min eCW1 ([facility]) Heart rate 93 /min 93 /min eCW1 ([facility]) Body mass index (BMI) [Ratio] 27.46 kg/m2 27.46 kg/m2 eCW1 ([facility]) Body height 64 [in_i] 64 [in_i] eCW1 ([facility]) Body weight 160 [lb_av] 160 [lb_av] eCW1 ([facility]) Oxygen saturation in Arterial blood by Pulse oximetry 96 % 96 % MEDERIN ([facility]) Body temperature 98.2 [degF] 98.2 [degF] MEDENT ([facility]) Respiratory rate 20 /min 20 /min [facility] ( [facility]) Heart rate 100 /min 100 /min [facility] ([facility]) Body height 63.3 [in_i] 63.3 [in_i] [facility] ([facility]) 5'3.30" Diastolic blood pressure 78 mm[Hg] 78 mm[Hg] [facility] ([facility]) Systolic blood pressure 137 mm[Hg] 137 mm[Hg] M EDENT ([facility]) Heart rate 71 /min 71 /min [facility] ([facility] Diastolic blood pressure 38 mm[Hg] 38 mm[Hg] [facility] ([facility] Systolic blood pressure 70 mm[Hg] 70 mm[Hg] [facility] Body weight 160.00 [lb_av] 160.00 [lb_av] MEDEN T ([facility] Body height 64 [in_i] 64 [in_i] [facility] ([facility] 5'4" Body mass index (BMI) [Ratio] 27.5 kg/m2 27.5 k g/m2 [facility] ([facility] Body weight 72.576 kg 72.576 kg MED[facility] ([facility], ) Body mass index (BMI) [Ratio] 27.5 kg/m2 27.5 k g/m2 [facility] ([facility], ) Body weight 160.00 [lb_av] 160.00 [lb_av] MEDEN T ([facility], ) Body height 64 [in_i] 64 [in_i] [facility] ([facility], ) 5'4" Oxygen saturation in Arterial blood by Pulse oximetry 97 % 97 % [facility] ([facility], ) Room Air Heart rate 100 /min 100 /min [facility] ([facility], ) Diastolic blood pressure 70 mm[Hg] 70 mm[Hg] [facility] ([facility]) Systolic blood pressure 118 mm[Hg] 118 mm[Hg] [facility] ([facility]) Oxygen saturation in Arterial blood by Pulse oximetry 97 % 97 % [facility] ([facility]) Body temperature 99.0 [degF] 99.0 [degF] [facility] ([facility]) Respiratory rate 18 /min 18 /min [facility] ( [facility]) Heart rate 91 /min 91 /min [facility] ([facility]) Body mass index (BMI) [Ratio] 28.6 kg/m2 28.6 k g/m2 [facility] ([facility]) Body weight 163.12 [lb_av] 163.12 [[facility]_av] [facility] Body height 63.3 [in_i] 63.3 [in_i] [facility] ([facility]) 5'3.30" Body weight 73.937 kg 73.937 kg [facility] ([facility]) Body mass index (BMI) [Ratio] 28.0 kg/m2 28.0 k g/m2 [facility] ([facility]) Body weight 163.00 [lb_av] 163.00 [lb_av] [facility] Body height 64 [in_i] 64 [in_i] [facility] ([facility]) 5'4" Heart rate 98 /min 98 /min [facility] ([facility]) Diastolic blood pressure 67 mm[Hg] 67 mm[Hg] [facility] ([facility]) Systolic blood pressure 99 mm[Hg] 99 mm[Hg] [facility] Body weight 75.411 kg 75.411 kg [facility] ([facility]) Body mass index (BMI) [Ratio] 28.5 kg/m2 28.5 k g/m2 [facility] ([facility]) Body weight 166.25 [lb_av] 166.25 [lb_av] [facility] Body height 64 [in_i] 64 [in_i] [facility] ([facility]) 5'4" Diastolic blood pressure 64 mm[Hg] 64 mm[Hg] [facility] ([facility]) Systolic blood pressure 102 mm[Hg] 102 mm[Hg] [facility]) Body mass index (BMI) [Ratio] 29.6 kg/m2 29.6 k g/m2 [facility] ([facility]) Body weight 168.50 [lb_av] 168.50 [lb_av] [facility] ([facility]) Body height 63.3 [in_i] 63.3 [in_i] [facility] ([facility]) 5'3.30" Diastolic blood pressure 64 mm[Hg] 64 mm[Hg] [facility] ([facility]) Systolic blood pressure 120 mm[Hg] 120 mm[Hg] [facility] ([facility]) Oxygen saturation in Arterial blood by Pulse oximetry 96 % 96 % [facility] ([facility]) Body temperature 97.4 [degF] 97.4 [degF] [facility] ([facility]) Respiratory rate 18 /min 18 /min [facility] ( [facility]) Heart rate 75 /min 75 /min [facility] ([facility]) Body weight 75.468 kg 75.468 kg [facility] ([facility]) Body mass index (BMI) [Ratio] 28.6 kg/m2 28.6 k g/m2 [facility] ([facility]) Body weight 166.38 [lb_av] 166.38 [lb_av] [facility] ([facility]) Body height 64 [in_i] 64 [in_i] [facility] ([facility]) 5'4" Diastolic blood pressure 80 mm[Hg] 80 mm[Hg] [facility] ([facility]) Systolic blood pressure 112 mm[Hg] 112 mm[Hg] [facility] ([facility]) Body mass index (BMI) [Ratio] 28.3 kg/m2 28.3 k g/m2 [facility] ([facility] Heart rate 98 /min 98 /min [facility] ([facility] Diastolic blood pressure 64 mm[Hg] 64 mm[Hg] [facility] ([facility] Systolic blood pressure 94 mm[Hg] 94 mm[Hg] M EDENT ([facility] Body weight 165.00 [lb_av] 165.00 [lb_av] [facility] T ([facility] Body height 64 [in_i] 64 [in_i] [facility] ([facility] 5'4" Body weight 74.844 kg 74.844 kg [facility] ([facility]) Body mass index (BMI) [Ratio] 28.3 kg/m2 28.3 k g/m2 [facility] ([facility]) Body weight 165.00 [lb_av] 165.00 [lb_av] [facility] T ([facility]) Body height 64 [in_i] 64 [in_i] [facility] ([facility]) 5'4" Diastolic blood pressure 82 mm[Hg] 82 mm[Hg] [facility] ([facility]) Systolic blood pressure 112 mm[Hg] 112 mm[Hg] M EDENT ([facility]) Body weight 74.844 kg 74.844 kg [facility] ([facility]) Body mass index (BMI) [Ratio] 28.3 kg/m2 28.3 k g/m2 [facility] ([facility]) Body weight 165.00 [lb_av] 165.00 [lb_av] [facility] T ([facility]) Body height 64 [in_i] 64 [in_i] [facility] ([facility]) 5'4" Body temperature 96.7 [degF] 96.7 [degF] [facility] ([facility]) Diastolic blood pressure 62 mm[Hg] 62 mm[Hg] [facility] ([facility]) Systolic blood pressure 102 mm[Hg] 102 mm[Hg] [facility] ([facility]) Oxygen saturation in Arterial blood by Pulse oximetry 98 % 98 % [facility] ([facility]) Body temperature 99.2 [degF] 99.2 [degF] [facility] ([facility]) Respiratory rate 18 /min 18 /min [facility] ( [facility]) Heart rate 89 /min 89 /min [facility] ([facility]) Body mass index (BMI) [Ratio] 29.2 kg/m2 29.2 k g/m2 [facility] ([facility]) Body weight 166.50 [lb_av] 166.50 [lb_av] [facility] Body height 63.3 [in_i] 63.3 [in_i] [facility] ([facility]) 5'3.30" Diastolic blood pressure 62 mm[Hg] 62 mm[Hg] [facility] ([facility]) Systolic blood pressure 126 mm[Hg] 126 mm[Hg] [facility] ([facility]) Body weight 74.901 kg 74.901 kg [facility] ([facility]) Body mass index (BMI) [Ratio] 28.3 kg/m2 28.3 k g/m2 [facility] ([facility]) Body weight 165.12 [lb_av] 165.12 [lb_av] [facility] T ([facility]) Body height 64 [in_i] 64 [in_i] [facility] ([facility]) 5'4" Body temperature 98.4 [degF] 98.4 [degF] [facility] ([facility]) Diastolic blood pressure 60 mm[Hg] 60 mm[Hg] [facility] ([facility]) Systolic blood pressure 110 mm[Hg] 110 mm[Hg] [facility] ([facility]) Oxygen saturation in Arterial blood by Pulse oximetry 94 % 94 % [facility] ([facility]) Body temperature 98.3 [degF] 98.3 [degF] [facility] ([facility]) Respiratory rate 20 /min 20 /min [facility] ( [facility]) Heart rate 84 /min 84 /min [facility] ([facility]) Body mass index (BMI) [Ratio] 31.5 kg/m2 31.5 k g/m2 [facility] ([facility]) Body weight 179.50 [lb_av] 179.50 [lb_av] [facility] T ([facility]) Body height 63.3 [in_i] 63.3 [in_i] [facility] ([facility]) 5'3.30" Diastolic blood pressure 74 mm[Hg] 74 mm[Hg] [facility] ([facility]) Systolic blood pressure 132 mm[Hg] 132 mm[Hg] [facility]) Body weight 78.926 kg 78.926 kg [facility] ([facility]) Body mass index (BMI) [Ratio] 29.9 kg/m2 29.9 k g/m2 [facility] ([facility]) Body weight 174.00 [lb_av] 174.00 [lb_av] [facility] Body height 64 [in_i] 64 [in_i] [facility] ([facility]) 5'4" Diastolic blood pressure 52 mm[Hg] 52 mm[Hg] [facility] ([facility]) Systolic blood pressure 102 mm[Hg] 102 mm[Hg] [facility] ([facility]) Oxygen saturation in Arterial blood by Pulse oximetry 99 % 99 % [facility] ([facility]) Body temperature 98.8 [degF] 98.8 [degF] [facility] ([facility]) Respiratory rate 22 /min 22 /min [facility] ( [facility]) Heart rate 102 /min 102 /min [facility] ([facility]) Body mass index (BMI) [Ratio] 30.8 kg/m2 30.8 k g/m2 [facility] ([facility]) Body weight 175.38 [lb_av] 175.38 [lb_av] [facility] Body height 63.3 [in_i] 63.3 [in_i] [facility] ([facility]) 5'3.30" Diastolic blood pressure 86 mm[Hg] 86 mm[Hg] [facility] ([facility]) Systolic blood pressure 132 mm[Hg] 132 mm[Hg] [facility] Body weight 77.282 kg 77.282 kg [facility] ([facility], ) Body mass index (BMI) [Ratio] 29.2 kg/m2 29.2 k g/m2 [facility] ([facility]) Body weight 170.38 [lb_av] 170.38 [lb_av] [facility] ([facility], ) Body height 64 [in_i] 64 [in_i] [facility] ([facility], ) 5'4" Diastolic blood pressure 72 mm[Hg] 72 mm[Hg] [facility] ([facility]) Systolic blood pressure 102 mm[Hg] 102 mm[Hg] [facility] ([facility], ) Oxygen saturation in Arterial blood by Pulse oximetry 99 % 99 % [facility] ([facility]) Body temperature 98.6 [degF] 98.6 [degF] [facility] ([facility]) Respiratory rate 20 /min 20 /min [facility] ( [facility]) Heart rate 96 /min 96 /min [facility] ([facility]) Body mass index (BMI) [Ratio] 30.0 kg/m2 30.0 k g/m2 [facility] ([facility]) Body weight 171.12 [lb_av] 171.12 [lb_av] [facility] Body height 63.3 [in_i] 63.3 [in_i] [facility] ([facility]) 5'3.30" Diastolic blood pressure 62 mm[Hg] 62 mm[Hg] [facility] ([facility]) Systolic blood pressure 110 mm[Hg] 110 mm[Hg] Odalis SLADE ([facility]) Patient Treatment Plan of Care Planned Activity Planned Date Details Description Data Source (s) Protonix 40 MG 05/03/2020 12:00:00 AM [facility]) Amoxicillin 875 MG / Clavulanate 125 MG Oral Tablet 04/25/19 21 12:00:00 AM [facility] Steglatro 15 MG 04/16/2020 12:00:00 AM [facility]) Amoxicillin-Pot Clavulanate 875-125 MG 04/16/2020 12:00:00 AM [facility] ([facility]) Amoxicillin 875 MG / Clavulanate 125 MG Oral Tablet 04/15/20 20 12:00:00 AM [facility] Fluconazole 200 MG Oral Tablet 04/14/2020 12:00:00 AM [facility] Escitalopram Oxalate 20 MG 04/03/2020 12:00:00 AM [facility]) TRULICITY 4.5 MG/0.5ML SOPN 04/02/2020 12:00:00 AM [facility] Fluconazole 200 MG 04/01/2020 12:00:00 AM [facility]) Escitalopram 20 MG Oral Tablet 04/01/2020 12:00:00 AM [facility] Acetaminophen 325 MG / Hydrocodone Bitartrate 5 MG Ora l Tablet 03/28/2020 12:00:00 AM [facility] Acetaminophen 325 MG / Oxycodone Hydrochloride 5 MG Or al Tablet 03/21/2020 12:00:00 AM [facility] Aspirin 325 MG Oral Tablet 03/15/2020 12:00:00 AM [facility] Bactrim DS 800-160 MG 03/02/2020 12:00:00 AM [facility] Pregabalin 200 MG 02/28/2020 12:00:00 AM [facility]) pregabalin 200 MG Oral Capsule 02/27/2020 12:00:[address] [facility] Atorvastatin Calcium 80 MG 02/23/2020 12:00:00 AM EST [facility] ([facility]) Benadryl Allergy 25 MG 02/23/2020 12:00:00 AM EST [facility] ([facility]) Acetaminophen 8 Hour 650 MG 02/23/2020 12:00:00 AM EST [facility] ([facility]) MetroNIDAZOLE 250 MG 02/23/2020 12:00:00 AM EST [facility] ([facility]) Ciprofloxacin HCl 250 MG 02/23/2020 12:00:00 AM EST [facility] ([facility]) Metronidazole 250 MG Oral Tablet 02/20/2020 12:00:00 AM [facility] Ciprofloxacin 250 MG Oral Tablet 02/20/2020 12:00:00 AM [facility] DAILY CHE (THERAGRAN) per tablet 02/17/2020 12:00:[address] [facility] Meropenem 1 GM 02/16/2020 01:00:00 AM EDT [facility] ([facility]) Docusate Sodium 02/16/2020 01:00:00 AM EDT [facility] ([facility]) Clopidogrel Bisulfate 75 MG 02/16/2020 01:00:00 AM EDT [facility] ([facility]) Steglatro 15 MG 02/16/2020 01:00:00 AM EDT [facility] ([facility]) Pregabalin 150 MG 02/16/2020 01:00:00 AM EDT [facility] ([facility]) Pentoxifylline ER 400 MG 02/16/2020 01:00:00 AM EDT [facility] ([facility]) Ondansetron HCl 4 MG 02/16/2020 01:00:00 AM EDT [facility] ([facility]) Omeprazole 40 MG 02/16/2020 01:00:00 AM EDT [facility]) Heparin 02/16/2020 01:00:00 AM EDT [facility] ([facility]) Normal Saline Flush 0.9 % 02/16/2020 01:00:00 AM EDT [facility] ([facility]) Multivitamin 02/16/2020 01:00:00 AM EDT [facility] ([facility]) Bisacodyl Supp. 02/16/2020 01:00:00 AM EDT [facility] ([facility]) Oxycodone & Tylenol 02/16/2020 01:00:00 AM EDT [facility] ([facility]) Cyclobenzaprine 02/16/2020 01:00:00 AM EDT [facility] ([facility]) Escitalopram Oxalate 10 MG 02/16/2020 01:00:00 AM EDT [facility] ([facility]) Ferrous Sulfate 02/16/2020 01:00:00 AM EDT [facility] ([facility]) Lisinopril 5 MG 02/16/2020 01:00:00 AM EDT [facility] ([facility]) Loratadine 10 MG 02/16/2020 01:00:00 AM EDT [facility] ([facility]) Metoclopramide 02/16/2020 01:00:00 AM EDT [facility] ([facility]) Nystatin Powder 02/16/2020 01:00:00 AM EDT [facility] ([facility]) Tresiba FlexTouch 100 UNIT/ML 02/16/2020 01:00:00 AM EDT [facility] ([facility]) Trulicity 0.75 MG/0.5ML 02/16/2020 01:00:00 AM EDT [facility] ([facility]) Admelog SoloStar 100 UNIT/ML 02/16/2020 01:00:00 AM EDT [facility] ([facility]) Albuterol Sulfate HFA 108 (90 Base) MCG/ACT 02/16/2020 01:00:00 AM EDT [facility] ([facility]) Breo Ellipta 100-25 MCG/INH 02/16/2020 01:00:00 AM EDT [facility] ([facility]) Atorvastatin Calcium 80 MG 02/16/2020 01:00:00 AM EDT [facility] ([facility]) BuPROPion HBr ER 522 MG 02/16/2020 01:00:00 AM EDT [facility] ([facility]) Aspirin 02/16/2020 01:00:00 AM EDT [facility] ([facility]) MiraLax 17 GM 02/16/2020 01:00:00 AM EDT [facility] ([facility]) Sodium Chloride Flush (NORMAL SALINE FLUSH) 0.9 % SOLN injection 02/16/2020 12:00:00 AM EDT [facility] Bisacodyl 10 MG Rectal Suppository 02/16/2020 12:00:[address] [facility] POLYETHYLENE GLYCOL 3350 142 MG/ML Oral Solution 02/16/2020 12:00:[address] [facility] meropenem (MERREM) 1 g injection 02/16/2020 12:00:[address] [facility] Chlorhexidine Gluconate (BIOPATCH PROTECTIVE DISK/CHG) (Dressing) [facility] 02/16/2020 12:00:[address] [facility] 3 ML heparin sodium, porcine 100 UNT/ML Prefilled Syri nge 02/16/2020 12:00:00 AM EDT [facility] Aspirin 325 MG Oral Tablet 02/16/2020 12:00:[address] [facility] Acetaminophen 325 MG / Oxycodone Hydrochloride 5 MG Or al Tablet 02/16/2020 12:00:00 AM EDT [facility] meropenem 2 g in sodium chloride 0.9 % 100 mL IVPB 02/16/2020 12 :00:[address] [facility] meropenem (MERREM) 1 g injection 02/16/2020 12:00:[address] [facility] Chlorhexidine Gluconate (BIOPATCH PROTECTIVE DISK/CHG) (Dressing) MISC 02/16/2020 12:00:[address] [facility] Sodium Chloride Flush (NORMAL SALINE FLUSH) 0.9 % SOLN injection 02/16/2020 12:00:00 AM EDT [facility] 3 ML heparin sodium, porcine 100 UNT/ML Prefilled Syri nge 02/16/2020 12:00:00 AM EDT [facility] clopidogrel 75 MG Oral Tablet 07/26/2019 12:00:[address] [facility] Ondansetron 4 MG Oral Tablet 07/22/2019 12:00:[address] [facility] Metoclopramide 10 MG Oral Tablet 07/13/2019 12:00:[address] [facility] atorvastatin 80 MG Oral Tablet 06/15/2019 12:00:[address] [facility] 0.5 ML dulaglutide 3 MG/ML Auto-Injector [Trulicity] 020 12:00:[address] [facility] Lisinopril 5 MG Oral Tablet 05/26/2019 12:00:[address] [facility] Mupirocin 0.02 MG/MG Topical Ointment 05/26/2019 12:00:[address] [facility] TRESIBA FLEXTOUCH 200 UNIT/ML SOPN 04/05/2019 12:00:[address] [facility] B-D ULTRAFINE III SHORT PEN 31G X 8 MM MISC 03/07/2019 12:00:[address] [facility] Nystatin 100 UNT/MG Topical Powder 03/06/2019 12:00:[address] [facility] Aspirin 325 MG Oral Tablet 03/06/2019 12:00:[address] [facility] STEGLATRO 15 MG TABS 02/21/2019 12:00:[address] [facility] 30 ACTUAT fluticasone furoate 0.2 MG/ACT UAT / vilanterol 0.025 MG/ACTUAT Dry Powder Inhaler [Breo] 02/16/2019 12:00:[address] [facility] pregabalin 150 MG Oral Capsule 01/16/2019 12:00:[address] [facility] ONE TOUCH ULTRA TEST test strip 12/21/2015 12:00:[address] [facility] B-D INS SYR ULTRAFINE 1CC/31G 31G X 09/01" 1 ML MISC 10/11/19 16 12:00:[address] [facility] Escitalopram [address] [facility] Insulin Lispro 100 UNT/ML Injectable Solution [facility] Acetaminophen 325 MG / Hydrocodone Bitartrate [address] [facility] duloxetine 60 MG Delayed Release Oral Capsule [facility]
--- NOTE | 2020-05-17 18:09 | REP ---
INDICATION: CHEST PAIN. COMPARISON: Comparison chest x-ray December 04, 2019. TECHNIQUE: Portable upright AP chest radiograph. FINDINGS: Patient is status post revised median sternotomy in the interval since the prior study. There are surgical clips adjacent and 2 sternotomy wires are noted inferiorly. Monitoring electrodes are noted. Heart is not felt to be enlarged. The lungs are well inflated and clear. The pleural angles are sharp. No infiltrate is seen.. IMPRESSION: Revised median sternotomy appears to have been done in the interval since the prior study. Otherwise no acute disease.. <Electronically signed by Eben Almodovar > 05/17/20 [id number]
[2020-05-17] MEDS ORDERED: TRES100I SC (18:21)
--- OUTSIDE RECORDS SUMMARY | 2020-05-17 18:36 | CCD ---
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 Care Gold Leaf Layer Name Role Phone Concepción MCCARTY DPM Unavailable [...] FLORECITA DPM Unavailable Unavailable Fons, M Karen INSTRUCTIONAL DESIGN CONSULTANT Unavailable Unavailable Fons, M Karen INSTRUCTIONAL DESIGN CONSULTANT Unavailable Unavailable Fons, M Karen INSTRUCTIONAL DESIGN CONSULTANT Unavailable Unavailable Fons, M Karen INSTRUCTIONAL DESIGN CONSULTANT Unavailable Unavailable Fons, M Karen INSTRUCTIONAL DESIGN CONSULTANT Unavailable Unavailable Fons, M Akren INSTRUCTIONAL DESIGN CONSULTANT Unavailable Unavailable Fons, M Karen INSTRUCTIONAL DESIGN CONSULTANT Unavailable Unavailable Fons, M Karen INSTRUCTIONAL DESIGN CONSULTANT Unavailable Unavailable Fons, M Karen INSTRUCTIONAL DESIGN CONSULTANT Unavailable Unavailable Fons, M Karen INSTRUCTIONAL DESIGN CONSULTANT Unavailable Unavailable Fons, M Karen INSTRUCTIONAL DESIGN CONSULTANT Unavailable Unavailable Fons, M Karen INSTRUCTIONAL DESIGN CONSULTANT Unavailable Unavailable Fons, M Karen INSTRUCTIONAL DESIGN CONSULTANT Unavailable Unavailable Fons, M Karen INSTRUCTIONAL DESIGN CONSULTANT Unavailable Unavailable Fons, M Karen INSTRUCTIONAL DESIGN CONSULTANT Unavailable Unavailable Fons, M Karen INSTRUCTIONAL DESIGN CONSULTANT Unavailable Unavailable Fons, M Karen INSTRUCTIONAL DESIGN CONSULTANT Unavailable Unavailable Fons, M Karen INSTRUCTIONAL DESIGN CONSULTANT Unavailable Unavailable Fons, M Karen INSTRUCTIONAL DESIGN CONSULTANT Unavailable Unavailable Fons, M Karen INSTRUCTIONAL DESIGN CONSULTANT Unavailable Unavailable Fons, M Karen INSTRUCTIONAL DESIGN CONSULTANT Unavailable Unavailable Fons, M Karen INSTRUCTIONAL DESIGN CONSULTANT Unavailable Unavailable Fons, M Karen INSTRUCTIONAL DESIGN CONSULTANT Unavailable Unavailable Fons, M Karen INSTRUCTIONAL DESIGN CONSULTANT Unavailable Unavailable Fons, M Karen INSTRUCTIONAL DESIGN CONSULTANT Unavailable Unavailable Fons, M Karen INSTRUCTIONAL DESIGN CONSULTANT Unavailable Unavailable Fons, M Karen INSTRUCTIONAL DESIGN CONSULTANT Unavailable Unavailable Fons, M Karen INSTRUCTIONAL DESIGN CONSULTANT Unavailable Unavailable Fons, M Karen INSTRUCTIONAL DESIGN CONSULTANT Unavailable Unavailable Fons, M Karen INSTRUCTIONAL DESIGN CONSULTANT Unavailable Unavailable Fons, M Karen INSTRUCTIONAL DESIGN CONSULTANT Unavailable Unavailable Fons, M Karen INSTRUCTIONAL DESIGN CONSULTANT Unavailable Unavailable Fons, M Karen INSTRUCTIONAL DESIGN CONSULTANT Unavailable Unavailable Fons, M Karen INSTRUCTIONAL DESIGN CONSULTANT Unavailable Unavailable Fons, M Karen INSTRUCTIONAL DESIGN CONSULTANT Unavailable Unavailable Fons, M Karen INSTRUCTIONAL DESIGN CONSULTANT Unavailable Unavailable Fons, M Karen INSTRUCTIONAL DESIGN CONSULTANT Unavailable Unavailable Fons, M Karen INSTRUCTIONAL DESIGN CONSULTANT Unavailable Unavailable Fons, M Karen INSTRUCTIONAL DESIGN CONSULTANT Unavailable Unavailable Fons, M Karen INSTRUCTIONAL DESIGN CONSULTANT Unavailable Unavailable Fons, M Karen INSTRUCTIONAL DESIGN CONSULTANT Unavailable Unavailable Fons, M Karen INSTRUCTIONAL DESIGN CONSULTANT Unavailable Unavailable Fons, M Karen INSTRUCTIONAL DESIGN CONSULTANT Unavailable Unavailable Fons, M Karen INSTRUCTIONAL DESIGN CONSULTANT Unavailable Unavailable Fons, M Karen INSTRUCTIONAL DESIGN CONSULTANT Unavailable Unavailable Fons, M Karen INSTRUCTIONAL DESIGN CONSULTANT Unavailable Unavailable Fons, M Karen INSTRUCTIONAL DESIGN CONSULTANT Unavailable Unavailable Fons, M Karen INSTRUCTIONAL DESIGN CONSULTANT Unavailable Unavailable Fons, M Karen INSTRUCTIONAL DESIGN CONSULTANT Unavailable Unavailable Fons, M Karen INSTRUCTIONAL DESIGN CONSULTANT Unavailable Unavailable Fons, M Karen INSTRUCTIONAL DESIGN CONSULTANT Unavailable Unavailable Fons, M Karen INSTRUCTIONAL DESIGN CONSULTANT Unavailable Unavailable Fons, M Karen INSTRUCTIONAL DESIGN CONSULTANT Unavailable Unavailable Fons, M Karen INSTRUCTIONAL DESIGN CONSULTANT Unavailable Unavailable SEMEL, Harris PETER MD Unavailable [...] Unavailable Unavailable Marek LEVINE MD Unavailable Unavailable CharlotteTabatha Dainderik BARNETT Unavailable Unavailable Charlotte, Tabatha Dain Unavailable Unavailable Charlotte, Tabatha Dain Unavailable Unavailable Charlotte, Tabatha Dain Unavailable Unavailable Charlotte, Tabatha Dain Unavailable Unavailable Charlotte, Tabatha Dain MD Unavailable Unavailable Claribel, Tabatha Dain Unavailable Unavailable Charlotte, Tabatha Dain MD Unavailable Unavailable Charlotte, Tabatha Dain Unavailable Unavailable Claribel, Tabatha Dain Unavailable Unavailable Claribel, Tabatha Dain Unavailable Unavailable Claribel, Tabatha Dain MD Unavailable Unavailable Charlotte, Tabatha Dain Unavailable Unavailable Charlotte, Tabatha Dain MD Unavailable Unavailable Claribel, Tabatha Dain Unavailable Unavailable Claribel, Tabatha Dain Unavailable Unavailable Charlotte, Tabatha Dain Unavailable Unavailable Claribel, Tabatha Dain MD Unavailable Unavailable Charlotte, Tabatha Dain Unavailable Unavailable Charlotte, Tabatha Dain Unavailable Unavailable Charlotte, Tabatha Dain Unavailable Unavailable Claribel, Tabatha Dain Unavailable Unavailable Claribel, Tabatha Dainderik BARNETT Unavailable Unavailable Charlotte, Tabatha Dain Unavailable Unavailable Charlotte, Tabatha Dain Unavailable Unavailable Charlotte, Tabatha Dain Unavailable Unavailable Charlotte, Tabatha Dain Unavailable Unavailable Claribel, Tabatha Dain Unavailable Unavailable Claribel, Tabatha Dain Unavailable Unavailable Claribel, Tabatha Dain Unavailable Unavailable Claribel, Tabatha Dain MD Unavailable Unavailable Claribel, Tabatha Dain MD Unavailable Unavailable Claribel, Tabatha Dain MD Unavailable Unavailable Claribel, Tabatha Dain MD Unavailable Unavailable Charlotte, aTbatha Dain MD Unavailable Unavailable Claribel, Tabatha Dain MD Unavailable Unavailable Charlotte, Tabatha Dain Unavailable Unavailable Charlotte, Tabatha Dain MD Unavailable Unavailable Claribel, Tabatha Dain Unavailable Unavailable Charlotte, Tabatha Dain MD Unavailable Unavailable Charlotte, Tabatha Dain MD Unavailable Unavailable Claribel, Tabatha [...] is protected by Article 27-F of the [facility] Public Health law. If you continue you may have access to information: Regarding HIV / AIDS; Provided by facilities licensed or operated by the [facility] Office of Mental Health; or Provided by the [facility] Office for People With Developmental Disabilities. If such information is present, then the following [facility] mandated warning applies: This information has [...] law may result in a fine or [place] health care facility sentence or both. A general authorization for the release of medical or other information is NOT sufficient authorization for further disc losure. Allergies and Adverse Reactions Type Description Substance Reaction Status Data Source(s ) Invokana Invokana Invokana active NETSMART ([facility]) Basaglar Kwikpen Basaglar Kwikpen Basaglar Kwikpen active NETSMART ([facility]) Grapefruit Concentrate Grapefruit Concentrate Grapefruit Concentrate active NETSMART ([facility]) Adverse Reaction Adverse Reaction Insulin Glargine Itching Moderate MEDENT ([facility]) Adverse Reaction Adverse Reaction canagliflozin Itching Mild MEDENT ([facility]) Propensity to adverse reactions CANAGLIFLOZIN canagliflozin Itching L ow Active [facility] Low Propensity to adverse reactions GRAPEFRUIT CONCENTRATE Grapefrui t Concentrate Itching Medium Hives Medium Active [facility] Medium Medium Propensity to adverse reactions INSULIN GLARGINE Insulin Glargin e Itching Medium Active [facility] Medium Drug Allergy NKDA NKDA MEDENT ([facility]) Family History Family Member Name Family Member Gender Family Member Status Date o f Status Description Data Source(s) Unknown Male Problem MEDENT ([facility] ) Encounters Encounter Providers Location Date Indications Data Source(s ) ([id number]) For Template Amanda [address] [place] [phone] 05/10/2020 12:00:00 AM EST eCW1 ([facility]) ([id number]) For Template Amanda [address] [place] [phone] 04/30/2020 12:00:00 AM EST eCW1 ([facility]) Outpatient Attender: Karen MAYORGA SJP.RASHIDA-SJP.RASHIDA 12:00:00 AM EST - 2020 01:46:07 PM EST [facility] Office Visit Attender: Dain Sanford MD Main Office 12:15:00 PM EST MEDENT ([facility]) Unknown [address] [facility] [address] 04/22/2020 12:00:00 AM EST eCW1 (Counts include 234 beds at the [facility]) 04/16/2020 12:00:00 AM EST - 021 08:29:28 PM EST NETSMART ([facility]) Unknown [address] [facility] [address] 04/15/2020 12:00:00 AM EST eCW1 (Counts include 234 beds at the [facility]) Inpatient Attender: BRITTANI BIRMINGHAM MDAdmitter: BRITTANI LUIS MD [id number]-[id number] 04/10/2020 11:17:08 PM EST - 04/15/2020 01:18:00 PM EST [facility] Patient discharged. ([id number]) For Template Amanda [address] [place] [address] 04/05/2020 12:00:00 AM EST eCW1 ([facility]) Outpatient Attender: Karen MAYORGA SJP.RASHIDA-SJP.RASHIDA 0 12:00:00 AM EST - 03/29/2020 04:01:[address] [facility] ([id number]) For Template Amanda [address] [place] [address] 03/28/2020 12:00:00 AM EST eCW1 ([facility]) Office Visit Attender: Genevieve GALVIN Main Office 03/21/2020 01:45:00 PM EST MEDENT ([facility]) ([id number]) For Template Amanda [address] [place] [address] 03/21/2020 12:00:00 AM EST eCW1 ([facility]) Unknown [address] [facility] [address] 03/08/2020 12:00:00 AM EST eCW1 (Counts include 234 beds at the [facility]) [place] [address] [facility] [address] 03/06/2020 12:00:00 AM EST eCW1 (Counts include 234 beds at the [facility]) Unknown [address] [facility], [facility] [address] 03/05/2020 12:00:00 AM EST eCW1 (Counts include 234 beds at the [facility]) Office Visit Attender: Dain Sanford MD Main Office 09:45:00 AM EST MEDENT ([facility]) ([id number]) For Template Amanda [address] [place] [address] 02/29/2020 12:00:00 AM EST eCW1 ([facility]) Unknown [address] [facility] [address] 02/22/2020 12:00:00 AM EST eCW1 (Counts include 234 beds at the [facility]) Unknown [address] [facility], [facility] [address] 02/22/2020 12:00:00 AM EST eCW1 (Counts include 234 beds at the [facility]) Outpatient Attender: Dain Jacobo DAttender: BRITTANI BIRMINGHAM MDAdmitter: BRITTANI BIRMINGHAM MDReferrer: BRITTANI BIRMINGHAM MDConsultant: Dain Sanford MD [id number]-[id number] 02/18/2020 04:40:24 PM EST - 02/20/2020 09:35:00 PM EST [facility] Patient discharged. 02/16/2020 01:00:00 AM EDT - 05:10:48 PM EST [facility] Inpatient Attender: Dain Jacobo DAdmitter: Dain Sanford MDConsultant: SHANTELL LEVINE MD [id number]-D4CVS 02/05/2020 04:17:29 AM EDT - 02/16/2020 12:57:00 PM EDT [facility] Patient discharged. Unknown [address] [facility], [facility] [address] 02/05/2020 12:00:00 AM EDT eCW1 (Counts include 234 beds at the [facility]) Unknown [address] [facility] [address] 02/05/2020 12:00:00 AM EDT eCW1 (Counts include 234 beds at the [facility]) ([id number]) For Template Amanda [address] [place] [address] 02/02/2020 12:00:00 AM EDT eCW1 ([facility]) ([id number]) For Template Amanda [address] [place] [address] 01/26/2020 12:00:00 AM EDT eCW1 ([facility]) SDC Attender: SABA SMITH MDAdmitter: SABA SMITH MD ES1-OR 01/24/2020 09:09:23 AM EDT [facility] Outpatient Attender: SABA SMITH MD MOCAM-MOCAM.CSA 020 12:00:00 AM EDT - 01/23/2020 11:40:[address] [facility][id number][facility] For Template Amanda [address] [place] [address] 01/17/2020 12:00:00 AM EDT eCW1 ([facility]) Outpatient Attender: Baljinder GALVIN [facility] 01/05/2020 11:00:00 AM EDT MEDENT ([facility]) [facility] 10:00:00 AM EDT MEDENT ([facility] Emergency ES1-ES1 12/07/2019 07:08:00 PM EDT - 020 11:18:00 PM EDT [facility] Patient discharged. Outpatient Attender: Karen MAYORGA SJP.RASHIDA-SJP.RASHIDA 0 12:00:00 AM EDT - 11/20/2019 10:37:22 AM EDT [facility] Outpatient Attender: Baljinder GALVIN [facility] 11/16/2019 01:10:00 PM EDT MEDENT ([facility]) Outpatient Attender: Tiana Mcmahan/Adela/Osmar/Concepción couch 10/30/2019 09:00:00 AM EDT MEDENT ([facility]: [facility] 01:00:00 PM EDT MEDENT [facility] Att[facility]: [facility]/2019 01:00:00 PM EDT MEDENT [facility] Att[facility]: [facility] 09/18 02:15:00 PM EDT MEDENT ([facility] Outpatient Attender: Baljinder GALVIN [facility] 09/27/2019 09:20:00 AM EDT MEDENT ([facility]) Outpatient Attender: Krystian MICHELE [facility] 09/26/2019 07:37:19 PM E DT [facility] Outpatient Attender: Tiana Longoria RPA Marj/Corning/Osmar/R eindl 09/26/2019 10:45:00 AM EDT MEDENT ([facility] Outpatient Attender: FLORECITA MCCARTY [facility][note 3] 11/2019 01:15:00 PM EDT MEDENT ([facility] Outpatient Attender: Krystian MICHELE [facility] 09/16/2019 12:11:06 AM E DT [facility] Outpatient Referrer: PRADEEP GALVIN 09/07/2019 06: 19:00 AM EDT [facility] Outpatient Attender: Tiana Longoria RPA Marj/Corning/Osmar/R eindl 09/04/2019 09:30:00 AM EDT MEDENT ([facility] Outpatient Attender: Tiana Longoria RPA Marj/Corning/Osmar/R eindl 08/14/2019 11:00:00 AM EDT MEDENT ([facility] Outpatient Attender: Karen MAYORGA SJP.RASHIDA-SJP 0 12:00:00 AM EDT - 08/10/2019 09:49:36 AM EDT [facility] Outpatient Attender: Baljinder GALVIN [facility] 07/21/2019 01:00:00 PM EDT MEDENT ([facility]) Outpatient Attender: Tiana Longoria RPA Marj/Corning/Osmar/R eindl 07/20/2019 09:45:00 AM EDT MEDENT ([facility] Outpatient Attender: Baljinder GALVIN [facility] 07/05/2019 02:30:00 PM EDT MEDENT ([facility]) Outpatient Referrer: Karen GRANTSJMER 07/05/2019 12:00:00 AM EDT [facility] Outpatient Referrer: PRADEEP GALVIN 07/04/2019 11: 08:00 AM EDT [facility] Outpatient Attender: Tiana Longoria RPA Marj/Corning/Osmar/R eindl 07/03/2019 09:00:00 AM EDT MEDENT ([facility] Outpatient Attender: Baljinder GALVIN [facility] 06/12/2019 01:00:00 PM EST MEDENT ([facility]) Outpatient Attender: FLORECITA MCCARTY [facility] 05/21 02:45:00 PM EST MEDENT ([facility] Outpatient Attender: Tiana Mcmahan/Corning/Osmar/R eindl 05/30/2019 08:00:00 AM EST MEDENT ([facility] Outpatient Referrer: PRADEEP GALVIN 05/24/2019 08: 35:00 AM EST [facility] Outpatient Attender: FLORECITA MCCARTY [facility] 04/20 01:30:00 PM EST MEDENT ([facility] Outpatient Attender: Karen GRANTSJMER 0 10:25:28 AM EST - 05/11/2019 10:57:26 AM EST [facility] Outpatient Attender: Tiana Mcmahan/Corning/Osmar/R eindl 04/27/2019 09:45:00 AM EST MEDENT ([facility] Outpatient Referrer: PRADEEP GALVIN 04/24/2019 08: 58:00 PM EST [facility] Outpatient Attender: Karen GRANTSJMER 04/11/2019 12:00:00 AM EST [facility] Outpatient Attender: Baljinder GALVIN [facility] 03/29/2019 09:40:00 AM CAILIN GARCIA ([facility]) Immunizations Vaccine Date Status Description Data Source(s) influenza, recombinant, quadrIvalent,injectable, prese rvative free 01/26/2020 10:09:00 AM EDT completed eCW1 ([facility]) influenza, recombinant, quadrIvalent,injectable, prese rvative free 01/26/2020 10:09:00 AM EDT completed eCW1 ([facility]) influenza, recombinant, quadrIvalent,injectable, prese rvative free 01/26/2020 10:09:00 AM EDT completed eCW1 ([facility]) influenza, recombinant, quadrIvalent,injectable, prese rvative free 01/26/2020 10:09:00 AM EDT completed eCW1 ([facility]) influenza, recombinant, quadrIvalent,injectable, prese rvative free 01/26/2020 10:09:00 AM EDT completed eCW1 ([facility]) influenza, recombinant, quadrIvalent,injectable, prese rvative free 01/26/2020 10:09:00 AM EDT completed eCW1 ([facility]) influenza, recombinant, quadrIvalent,injectable, prese rvative free 01/26/2020 10:09:00 AM EDT completed eCW1 ([facility]) influenza, recombinant, quadrIvalent,injectable, prese rvative free 01/26/2020 10:09:00 AM EDT completed eCW1 ([facility]) influenza, recombinant, quadrIvalent,injectable, prese rvative free 01/26/2020 10:09:00 AM EDT completed eCW1 ([facility]) influenza, recombinant, quadrIvalent,injectable, prese rvative free 01/26/2020 10:09:00 AM EDT completed eCW1 ([facility]) influenza, recombinant, quadrIvalent,injectable, prese rvative free 01/26/2020 10:09:00 AM EDT completed eCW1 ([facility]) influenza, recombinant, quadrIvalent,injectable, prese rvative free 01/26/2020 10:09:00 AM EDT completed eCW1 ([facility]) influenza, recombinant, quadrIvalent,injectable, prese rvative free 01/26/2020 10:09:00 AM EDT completed eCW1 ([facility]) influenza, recombinant, quadrIvalent,injectable, prese rvative free 01/26/2020 10:09:00 AM EDT completed eCW1 ([facility]) influenza, recombinant, quadrIvalent,injectable, prese rvative free 01/26/2020 10:09:00 AM EDT completed eCW1 ([facility]) influenza, recombinant, quadrIvalent,injectable, prese rvative free 01/26/2020 10:09:00 AM EDT completed eCW1 ([facility]) influenza, recombinant, quadrIvalent,injectable, prese rvative free 01/26/2020 10:09:00 AM EDT completed eCW1 ([facility]) influenza, recombinant, quadrIvalent,injectable, prese rvative free 01/26/2020 10:09:00 AM EDT completed eCW1 ([facility]) Medications Medication Brand Name Start [...] TABLET BY MOUTH EVERY DAY SOLD: 05/16/2020 [facility] 300 mg 05/16/2020 12:00:00 AM EST [...] 12:00:00 AM EST 1.0 {tablet} completed NETSMART ([facility]) 5-325 mg 05/02/2020 12:00:00 AM EST tablet [...] per tablet 04/25/2020 12:00:00 AM EST active [facility] 875-125 mg 04/25/2020 12:00:00 AM EST [...] 12:00:00 AM EST 1.0 {tablet} completed NETSMART ([facility]) Steglatro 15 MG Steglatro 04/16/2020 12:00:00 AM EST 15.0 {mg} completed NETSMART ([facility]) Insulin Lispro 100 UNT/ML Injectable [place] ution insulin lispro (HumaLOG) injection 1-10 Units insulin lispro (HumaLOG) injection 1-10 Units 04/15/20 08:00:00 AM EST Subcutaneous active 1-1 0 Units, Subcutaneous, MEALSS, First dose on Wed04/15/20 at 0800
5 units Nutritional and Correction Insulin ScaleBlood Glucose (mg/dl) <70 start hypoglycemiaprotocolGlucoseEats >=50% Eats <50%Eats Nothing (mg/dl) of meal of mealor NPO70- 1203 units 2 units 0 yrhzr033-2273 units 3 units 0 orwlp481- 2206 units 3 units 1 oyaek119-3172 units 4 units 2 - 3208 units 5 units 3 -8387 units 6 units 3 ogykf206-3617 units 7 units 4 units>420 call MD10 units 8 units 5 unitsTest glucose within 30 minutes of insulin administration.Administer insulin within 15 minutes (before or after) of the patient starting to eat.For patients that are NPO, use theNPO (correction) scale to cover POC glucose at 08:00, 12:00, 17:00.
[facility] Medication administered onsite Amoxicillin 875 MG / Clavulanate 125 MG Oral Tablet amoxicillin-clavulanate (AUGMENTIN) 875-125 MG per tablet amoxicillin-clavulanate (AUGMENTIN) 875- 125 MG per tablet 04/15/2020 12:00:00 AM EST 1 {tbl} Oral active Take 1 tablet by mouth 2 (two) times a day for 2 days [facility] 875-125 mg 04/15/2020 12:00:00 AM EST [...] (relative), First dose on 04/14/20 at 1300 [facility] Skin and Soft Tissue Infection Medication administered onsite Insulin Glargine 100 UNT/ML Injectable S olution [Lantus] insulin glargine (LANTUS) injection 20 Units insulin glargine (LANTUS) injection 20 Units 04/14/2020 12:00:00 PM EST 20 U Subcutaneous active 20 Units, Subcutaneous, Daily (Lantus), First dose on 04/14/20 at 1200 [facility] Medication administered onsite Fluconazole 200 MG Oral Tablet fluconazole (DIFLUCAN) 200 MG tablet fluconazole (DIFLUCAN) 200 MG tablet 04/14/2020 12:00:00 AM EST 200 mg Oral active Take 200 mg by mouth daily [facility] 200 mg 04/14/2020 12:00:00 AM EST [...] (relative), First dose on 04/13/20 at 2100 [facility] Skin and Soft Tissue Infection Sepsis [...] Drugs in the Workplace Policy on Intranet.
[facility] Skin and Soft Tissue Infection Medication administered onsite Insulin Glargine 100 UNT/ML Injectable S olution [Lantus] insulin glargine (LANTUS) injection 20 Units insulin glargine (LANTUS) injection 20 Units 04/13/2020 10:00:00 AM EST 20 U Subcutaneous aborted 20 Units, Subcutaneous, 2 Times Daily (Lantus), First dose on Wed04/13/20 at 1000 [facility] Medication administered onsite Insulin Lispro 100 [...] mealor NPO70- 1209 units 5 units 0 -45601 units 7 units 0 scomt281- 86342 units 9 units 2 yppso903-62644 units 12 units 5 tqfib902-73738 units 14 units 7 aloyv858- 43924 units 16 units 9 -86258 units 19 units 12 units>420 call MD28 units 21 units 14 unitsTest glucose within 30 minutes of insulin administration.Administer insulin within 15 minutes (before or after) of the patient starting to eat.For patients that are NPO, use theNPO (correction) scale to cover POC glucose at 08:00, 12:00, 17:00.
[facility] Medication administered onsite Miconazole Nitrate 0.02 MG/MG Topical Po wder miconazole (REMEDY PHYTOPLEX AF) 2 % powder 1 application miconazole (REMEDY PHYTOPLEX AF) 2 % pow tomas 1 application 04/12/2020 12:00:00 PM EST 1 {application} Topical a ctive 1 application, Topical, 2 times daily, First dose on Wed04/12/20 at 1200, Until Discontinued [facility] Medication administered onsite Insulin Glargine 100 UNT/ML Injectable S olution [Lantus] insulin glargine (LANTUS) injection 24 Units insulin glargine (LANTUS) injection 24 Units 04/12/2020 11:00:00 AM EST 24 U Subcutaneous aborted 24 Units, Subcutaneous, 2 Times Daily (Lantus), First dose on Wed04/12/20 at 1100 [facility] Medication administered onsite vancomycin (VANCOCIN) IVPB 1,000 mg [id number] 04/11/2020 08:00:0 0 PM EST 1000 mg Intravenous aborted Skin and Soft Tissue Infecti onSepsis 1,000 mg, Intravenous, Administer over 1 Hours, Every 12 hours (relative), First dose on Em 04/11/20 at 2000 [facility] Skin and Soft Tissue Infection Sepsis Medication administered onsite Insulin Glargine 100 UNT/ML Injectable S olution [Lantus] insulin glargine (LANTUS) injection 30 Units insulin glargine (LANTUS) injection 30 Units 04/11/2020 10:00:00 AM EST 30 U Subcutaneous aborted 30 Units, Subcutaneous, 2 Times Daily (Lantus), First dose on Wed04/11/20 at 1000 [facility] Medication administered onsite iopamidol (ISOVUE-370) 76 % 120 mL [id number] 04/11/2020 09:22:28 AM EST 120 mL Intravenous completed 120 mL, Intra venous, Once in imaging, contrast, Starting Wed04/11/20 at 0922, For 1 dose [facility] Medication administered onsite Aspirin 325 MG Oral Tablet aspirin tablet 325 mg aspirin tab let 325 mg 04/11/2020 09:00:00 AM EST 325 mg Oral active 325 mg, Oral, Daily, First dose on Wed04/11/20 at 0900 [facility] Medication administered onsite atorvastatin 80 MG Oral Tablet atorvastatin (LIPITOR) tablet 80 mg atorvastatin (LIPITOR) tablet 80 mg 04/11/2020 09:00:00 AM EST 80 mg Oral active 80 mg, Oral, Daily, First dose on Wed04/11/20 at 0900 [facility] Medication administered onsite Metoclopramide 10 MG Oral Tablet metoclopramide (MELVA N) tablet 10 mg metoclopramide (REGLAN) tablet 10 mg 04/11/2020 09:00:00 AM EST 10 mg Oral active 10 mg, Oral, 2 times daily, First dose on Em 04/11/20 at 0900 [facility] Medication administered onsite pantoprazole 40 MG Delayed Release Oral Tablet pantoprazole (PROTONIX) EC tablet 40 mg pantoprazole (PROTONIX) EC tablet 40 mg 04/11/2020 09:00:[address] 40 mg Oral active Gastroesophageal Reflux Diseas e 40 mg, Oral, Daily, Indications: Gastroesophageal Reflux Disease, First dose on Em 04/11/20 at 0900 [facility] Gastroesophageal Reflux Disease Medication administered onsite Lisinopril 5 MG Oral Tablet lisinopril (PRINIVIL,ZESTR IL) tablet 5 mg lisinopril (PRINIVIL,ZESTRIL) tablet 5 mg 04/11/2020 09:00:00 AM EST 5 mg O ral active 5 mg, Oral, Daily, First dose on Em 04/11/20 at 0900 [facility] Medication administered onsite Loratadine 10 MG Oral Tablet loratadine (CLARITIN) tab let 10 mg loratadine (CLARITIN) tablet 10 mg 04/11/2020 09:00:00 AM EST 10 mg Oral active 10 mg, Oral, Daily, First dose on Em 04/11/20 at 0900 [facility] Medication administered onsite clopidogrel 75 MG Oral Tablet clopidogrel (PLAVIX) tab let 75 mg clopidogrel (PLAVIX) tablet 75 mg 04/11/2020 09:00:00 AM EST 75 mg Oral active 75 mg, Oral, Daily, First dose on Em 04/11/20 at 0900 [facility] Medication administered onsite 24 HR Bupropion Hydrochloride 150 MG Ext ended Release Oral Tablet buPROPion (WELLBUTRIN XL) 24 hr tablet 150 mg buPROPion (WELLBUTRIN XL) 24 hr tablet 1 50 mg 04/11/2020 09:00:00 AM EST 150 mg Oral active 150 mg, Oral, Daily, First dose on Em 04/11/20 at 0900 [facility] Medication administered onsite Insulin Lispro 100 UNT/ML Injectable Kaushal ution insulin lispro (HumaLOG) injection 3-40 Units insulin lispro (HumaLOG) injection 3-40 Units 04/11/20 08:00:00 AM EST Subcutaneous aborted 3-4 0 Units, Subcutaneous, MEALSS, First dose on Wed04/11/20 at 0800
20 units Nutritional and Correction Insulin ScaleBlood Glucose (mg/dl) <70 start hypoglycemiaprotocolGlucoseEats >=50% Eats <50%Eats Nothing (mg/dl) of meal of mealor NPO70- 32684 units 7 units 0 -01469 units 10 units 0 [id number] units 13 units 3 - 53430 units 17 units 7 -67115 units 20 units 10 [id number] units 23 units 13 [id number]- [id number] units 27 units 17 units>420 call MD40 units 30 units 20 unitsTest glucose within 30 minutes of insulin administration.Administer insulin within 15 minutes (before or after) of the patient starting to eat.For patients that are NPO, use theNPO (correction) scale to cover POC glucose at 08:00, 12:00, 17:00.
[facility] Medication administered onsite Pentoxifylline 400 MG Extended Release O ral Tablet pentoxifylline (TRENTal) CR tablet 400 mg pentoxifylline (TRENTal) CR tablet 400 mg 04/11/2020 0 8:00:00 AM EST 400 mg Oral active 400 mg, Oral, 3 times daily with meals, First dose on Wed04/11/20 at 0800 [facility] Medication administered onsite ferrous sulfate 325 MG Oral Tablet ferrous sulfate tab let 325 mg ferrous sulfate tablet 325 mg 04/11/2020 07:00:00 AM EST 325 mg Oral act guevara 325 mg, Oral, Daily with breakfast, First dose on Wed04/11/20 at 0700 [facility] Medication administered onsite heparin (porcine) injection 5,000 Units [id number] 04/11/20 20 06:00:00 AM EST 5000 U Subcutaneous active 5,000 Units , Subcutaneous, Every 8 hours (scheduled), First dose on Wed04/11/20 at 0600
If platelet count is less than 100,000 or hematocrit is less than 30, or if there is a 5 point decrease in hematocrit, do not give the dose and call physician/designee.
[facility] Medication administered onsite sodium chloride 0.9% (NS) infusion [id number] 04/11/2020 06:00:00 A M EST Intravenous aborted at 125 mL/hr, Intravenous, Continuous, Starting Em 04/11/20 at 0600 [facility] Medication administered onsite menthol (HALLS) lozenge 1 lozenge 04/11/2020 05:17:[address] 1 {lozenge} Buccal active 1 lozenge, [place], As needed, sore throat, Starting Em 04/11/20 at 0517 [facility] Medication administered onsite fluconazole (DIFLUCAN) IVPB 400 mg [id number] 04/11/2020 02:00:00 AM EST 400 mg Intravenous completed Skin and Soft Tissue Infecti on 400 mg, Intravenous, Administer over 120 Minutes, Once, Em 04/11/20 at 0200, For 1 dose
For administration and preparation considerations, refer to Hazardous Drugs in the Workplace Policy on Intr[employer].
[facility] Skin and Soft Tissue Infection Medication administered onsite vancomycin in 500mL (VANCOCIN) IV 2,000 mg [id number] 04/11/2020 02:00:00 AM EST 2000 mg Intravenous completed 2, 000 mg, Intravenous, Administer over 120 Minutes, Once, Em 04/11/20 at 0200, For 1 dose [facility] Medication administered onsite normal saline flush 0.9 % injection 3 mL [id number] 04/11/2020 01:00:00 AM EST 3 mL Intravenous active 3 mL , Intravenous, Every 8 hours (scheduled), First dose on Em 04/11/20 at 0100
flush per protocol, D/C Main IV fluid if appropriate
[facility] Medication administered onsite Docusate Sodium 50 MG / sennosides, [facility] 8.6 MG Oral Tablet senna-docusate (PERICOLACE) 8.6-50 MG 2 tablet senna-docusate (PERICOLACE) 8.6-50 MG 2 tablet 04/11/2020 01:00:00 AM EST 2 {tbl} Oral active 2 tablet, Oral, Nightly, First dose on Em 04/11/20 at 0100
hold for loose stools
[facility] Medication administered onsite pregabalin (LYRICA) capsule 200 mg 04/11/2020 01:00:00 AM EST 200 mg Oral active 200 mg, Oral, 2 times daily, First dose on Em 04/11/20 at 0100, For 7 days [facility] Medication administered onsite piperacillin-tazobactam (ZOSYN) 3.375 g in sodium chloride (NS) 0.9 % 100 mL IV pigtail 04/11/2020 01:00:00 AM EST 3.375 g Intravenous aborted Skin and Soft Tissue Infection 3.375 g, Intravenous, Admini ster over 30 Minutes, Every 6 hours (relative), First dose on Em 04/11/20 at 0100 [facility] Skin and Soft Tissue Infection Medication administered onsite dextrose 5 % and sodium chloride 0.45 % infusion [id number] 0 04/11/2020 01:00:00 AM EST Intravenous aborted at 125 mL/hr, Intravenous, Continuous, Starting Em 04/11/20 at 0100 [facility] Medication administered onsite Acetaminophen 325 MG / Oxycodone Hydroch loride 5 MG Oral Tablet oxyCODONE- acetaminophen (PERCOCET) 5-325 MG 2 tablet oxyCODONE-acetaminophen (PERCOCET) 5- 325 MG 2 tablet 04/11/2020 12:06:40 AM EST 2 {tbl} Oral a ctive 2 tablet, Oral, Every 4 hours PRN, severe pain (7-10), Starting Em 04/11/20 at 0006, For 7 days [facility] Medication administered onsite Acetaminophen 325 MG / Oxycodone Hydroch loride 5 MG Oral Tablet oxyCODONE- acetaminophen (PERCOCET) 5-325 MG 1 tablet oxyCODONE-acetaminophen (PERCOCET) 5- 325 MG 1 tablet 04/11/2020 12:06:25 AM EST 1 {tbl} Oral a ctive 1 tablet, Oral, Every 4 hours PRN, moderate pain (4-6), Starting Em 04/11/20 at 0006, For 7 days [facility] Medication administered onsite Docusate Sodium 100 MG Oral Capsule docusate sodium (C OLACE) capsule 200 mg docusate sodium (COLACE) capsule 200 mg 04/11/2020 12:02:05 AM EST 200 mg Oral active 200 mg, Oral, 2 times daily PRN, constipation, Starting Wed04/11/20 at 0002
hold for loose stools
[facility] Medication administered onsite Cyclobenzaprine hydrochloride 10 MG Oral Tablet cyclobenzaprine (FLEXERIL) tablet 5 mg cyclobenzaprine (FLEXERIL) tablet 5 mg 04/11/2020 12:02:04 AM ES T 5 mg Oral active 5 mg, Oral , 2 times daily PRN, muscle spasms, Starting Em 04/11/20 at 0002 [facility] Medication administered onsite Magnesium Hydroxide 80 MG/ML Oral Suspen roxanne magnesium hydroxide (MILK OF MAGNESIA) 400 MG/5ML suspension 30 mL magnesium hydroxide (MILK OF MAGNESIA) 4 00 MG/5ML suspension 30 mL 04/11/2020 12:00:00 AM EST 30 mL Oral active 30 mL, Oral, Daily PRN, constipation, Starting Em 04/11/20 at 0000
If senna- docusate is not effective
[facility] Medication administered onsite Albuterol 0.83 MG/ML Inhalant Solution a lbuterol (PROVENTIL) nebulizer solution 2.5 mg albuterol (PROVENTIL) nebulizer solution 2.5 mg 2019 11:58:29 PM EST 2.5 mg active 2.5 mg, Nebulization, RT 4 times daily as needed, wheezing, shortness of breath, Starting Wed04/10/20 at 2358 [facility] Medication administered onsite Acetaminophen 325 MG Oral Tablet acetaminophen (TYLENO L) 325 MG tablet 650 mg acetaminophen (TYLENOL) 325 MG tablet 650 mg 04/10/2020 11:50:38 PM EST 650 mg Oral active 650 mg, Or al, Every 4 hours PRN, mild pain (1-3), headaches, Starting Wed04/10/20 at 2350
"Maximum dose of acetaminophen is 4,000 mg from all sources in 24 hours."
[facility] Medication administered onsite Bisacodyl 10 MG Rectal Suppository bisacodyl (DULCOLAX ) suppository 10 mg bisacodyl (DULCOLAX) suppository 10 mg 04/10/2020 11:50:31 PM EST 10 mg Rectal active 10 mg, Rectal, Daily PRN, constipation, Starting Wed04/10/20 at 2350
Hold for BM.If senna-docusate and milk of magnesia are not effective
[facility] Medication administered onsite Mineral Oil 1000 MG/ML Enema mineral oil enema 1 enema mineral oil enema 1 enema 04/10/2020 11:50:31 PM EST 1 {enema} Rectal active 1 enema, Rectal, Daily PRN, constipation, unrelieved by MOM/bisacodyl/senna-docusate, Starting Wed04/10/20 at 2350
hold for loose stools
[facility] Medication administered onsite 2 ML Metoclopramide 5 MG/ML Prefilled Sy ringe metoclopramide (REGLAN) injection 10 mg metoclopramide (REGLAN) injection 10 mg 04/10/2020 11:50:[address] 10 mg Intravenous active 10 mg, I ntravenous, Every 6 hours PRN, for Nausea/Vomiting not relieved by zofran, Starting Wed04/10/20 at 2350 [facility] Medication administered onsite ondansetron (ZOFRAN) injection 4 mg [id number] 04/10/2020 11:50:2 7 PM EST 4 mg Intravenous active 4 mg, In travenous, Every 4 hours PRN, nausea, vomiting, Starting Wed04/10/20 at 2350 [facility] Medication administered onsite 5-325 mg 04/10/2020 12:00:00 AM EST tablet 30 TAKE ONE TABLET BY MOUTH EVERY 4 HOURS NEEDED FOR PAIN MAXIMUM DAILY DOSE = SIX TABLETS TAKE ONE TABLET BY MOUTH EVERY 4 HOURS NEEDED FOR PAIN MAXIMUM DAILY DOSE = SIX TABLETS SOLD: 04/10/2020 [facility] pantoprazole 40 MG Delayed Release Oral Tablet PANTOPRAZOLE SODIUM 04/10/2020 12:00:00 AM EST tablet,delayed release (DR/EC) 30 T FITO ONE TABLET BY MOUTH EVERY DAY TAKE ONE TABLET BY MOUTH EVERY DAY SOLD: 04/14/2020 [facility] pantoprazole 40 MG Delayed Release Oral Tablet [Protonix] Pr otonix 04/10/2020 12:00:00 AM EST ORAL active M [place] ([facility]) 5-325 mg 04/04/2020 12:00:00 AM EST tablet 14 TAKE ONE TABLET BY MOUTH EVERY 12 HOURS NEEDED FOR PAIN MAXIMUM DAILY DOSE = 2 TAKE ONE TABLET BY MOUTH EVERY 12 HOURS NEEDED FOR PAIN MAXIMUM DAILY DOSE = 2 SOLD: 04/04/2020 [facility] Escitalopram Oxalate 20 MG Escitalopram Oxalate 04/03/2020 12:00:00 A M EST completed [facility] ( [facility]) 4.5 mg/0.5 mL 04/02/2020 12:00:00 AM EST pen injector 6 INJECT 1 SUBCUTANEOUSLY ONCE A WEEK INJECT 1 SUBCUTANEOUSLY ONCE A WEEK SOLD: 04/10/2020 [facility] TRULICITY 4.5 MG/0.5ML SOPN [id number] 04/02/2020 12:00:00 AM EST active INJECT 1 SUBCUTANEOUSLY ONCE A W [place] [facility] 75 mg 04/02/2020 12:00:00 AM EST tablet 30 TAKE ONE TABLET BY MOUTH EVERY DAY TAKE ONE TABLET BY MOUTH EVERY DAY SOLD: 04/10/2020 [facility] 75 mg 04/02/2020 12:00:00 AM EST tablet 30 TAKE ONE TABLET BY MOUTH EVERY DAY TAKE ONE TABLET BY MOUTH EVERY DAY SOLD: 05/09/2020 [facility] Nystatin 100 UNT/MG Topical Powder 100,000 unit/gram NYSTATI N 04/01/2020 12:00:00 AM EST powder 15 APPLY TO AFFECTE D AREA(S) UNDER ABDOMINAL FOLD TWO TIMES A DAY NEEDED FOR RASH APPLY TO AFFECTED AREA(S) UNDER ABDOMINA L FOLD TWO TIMES A DAY NEEDED FOR RASH SOLD: 04/29/2020 [facility] Fluconazole 200 MG Fluconazole 04/01/2020 12:00:00 AM EST completed [facility] ([facility]) Escitalopram 20 MG Oral Tablet escitalopram (LEXAPRO) 20 MG tablet escitalopram (LEXAPRO) 20 MG tablet 04/01/2020 12:00:00 AM EST 20 mg Oral active Take 20 mg by mouth daily [facility] Escitalopram 20 MG Oral Tablet ESCITALOPRAM [...] tablet 03/28/2020 12:00:00 AM EST abort ed [facility] 60 mg 03/25/2020 12:00:00 AM EST [...] FOR PAIN MAXIMUM DAILY DOSE 6 TABLETS [facility] 325 mg (65 mg iron) 03/21/2020 12:00:00 [...] EST ORAL active [facility] ([facility]) 200 unit/mL (3 mL) 03/20/2020 12:00:00 [...] active Take 325 mg by mouth daily [facility] 325 mg 03/15/2020 12:00:00 AM EST [...] DS 03/02/2020 12:00:00 AM EST completed [facility] ([facility]) 10 mg 02/28/2020 12:00:00 AM EST tablet 30 TAKE ONE TABLET BY MOUTH EVERY DAY TAKE ONE TABLET BY MOUTH EVERY DAY SOLD: 04/21/2020 [facility] Pregabalin 200 MG Pregabalin 02/28/2020 12:00:00 AM EST completed [facility] ([facility] ) 10 mg 02/28/2020 12:00:00 AM [...] A DAY MAXIMUM DAILY DOSE 2 CAPSULES [facility] Atorvastatin Calcium 80 MG Atorvastatin Calcium 02/23/2020 12:00:00 A M EST completed [facility] ( [facility]) Acetaminophen 8 Hour 650 MG Acetaminophen 8 Hour 02/23/2020 12:00:00 AM EST completed [facility] ( [facility]) Benadryl Allergy 25 MG Benadryl Allergy 02/23/2020 12:00:00 AM EST completed [facility] ([facility]) Ciprofloxacin HCl 250 MG Ciprofloxacin HCl 02/23/2020 12:00:[address] 3.0 {tablet} completed [facility] ([facility]) MetroNIDAZOLE 250 MG MetroNIDAZOLE 02/23/2020 12:00:00 AM EST 2.0 {tablet} completed [facility] ([facility]) 5-325 mg 02/22/2020 12:00:00 AM EST tablet [...] (two) times a day for 14 days [facility] Metronidazole 250 MG Oral Tablet metroNIDAZOLE (FLAGYL ) 250 MG tablet metroNIDAZOLE (FLAGYL) 250 MG tablet 02/20/2020 12:00:00 AM EST 500 m g Oral active Take 2 tablets ( 500 mg total) by mouth 3 (three) times a day for 14 days [facility] Insulin Lispro 100 UNT/ML Injectable Kaushal ution insulin lispro (HumaLOG) injection 3-40 Units insulin lispro (HumaLOG) injection 3-40 Units 02/19/20 05:00:00 PM EST Subcutaneous active 3-4 0 Units, Subcutaneous, MEALSS, First dose on Wed02/19/20 at 1700
20 units Nutritional and Correction Insulin ScaleBlood Glucose (mg/dl) <70 start hypoglycemiaprotocolGlucoseEats >=50% Eats <50%Eats Nothing (mg/dl) of meal of mealor NPO70- 69942 units 7 units 0 [id number] units 10 units 0 [id number] units 13 units 3 [id number]- 40438 units 17 units 7 [id number] units 20 units 10 [id number] units 23 units 13 [id number]- 49128 units 27 units 17 units>420 call MD40 units 30 units 20 unitsTest glucose within 30 minutes of insulin administration.Administer insulin within 15 minutes (before or after) of the patient starting to eat.For patients that are NPO, use theNPO (correction) scale to cover POC glucose at 08:00, 12:00, 17:00.
[facility] Medication administered onsite Acetaminophen 325 MG / Oxycodone Hydroch loride 5 MG Oral Tablet oxyCODONE- acetaminophen (PERCOCET) 5-325 MG 1 tablet oxyCODONE-acetaminophen (PERCOCET) 5- 325 MG 1 tablet 02/19/2020 04:00:00 PM EST 1 {tbl} Oral c ompleted 1 tablet, Oral, Once, Wed02/19/20 at 1600, For 1 dose [facility] Medication administered onsite Insulin Glargine 100 UNT/ML Injectable S olution [Lantus] insulin glargine (LANTUS) injection 30 Units insulin glargine (LANTUS) injection 30 Units 02/19/2020 01:00:00 PM EST 30 U Subcutaneous active 30 Units, Subcutaneous, 2 Times Daily (Lantus), First dose on Wed02/19/20 at 1300
Basal Insulin (Lantus) Adjustments based on AM Blood GlucoseBlood GlucoseAdjustmentLess than 70 mg/dl Nursing to initiate hypoglycemia [id number] to 100 mg/dl Pharmacy to decrease total daily d ose by 20%101 to 200 mg/dl No Change
[facility] Medication administered onsite meropenem (MERREM) 2 [...] phone call been made for approval? No [facility] Skin and Soft Tissue Infection Medication [...] mealor NPO70- 1201 units 1 units 0 [id number] units 1 units 0 [id number]- 2202 units 1 units 0 -9076 units 2 units 1 [id number]- 3203 units 2 units 1 -8820 units 2 units 1 [id number] units 3 units 2 units>420 call MD4 units 3 units 2 unitsTest glucose within 30 minutes of insulin administration.Administer insulin within 15 minutes (before or after) of the patient starting to eat.For patients that are NPO, use theNPO (correction) scale to cover POC glucose at 08:00, 12:00, 17:00.
[facility] Medication administered onsite ferrous sulfate 325 MG Oral Tablet ferrous sulfate tab let 325 mg ferrous sulfate tablet 325 mg 02/19/2020 07:00:00 AM EST 325 mg Oral act guevara 325 mg, Oral, Daily with breakfast, First dose on Wed02/19/20 at 0700 [facility] Medication administered onsite pregabalin 75 MG Oral Capsule pregabalin (LYRICA) caps ule 150 mg pregabalin (LYRICA) capsule 150 mg 02/18/2020 09:00:00 PM EST 150 mg Oral active 150 mg, Oral, 2 times daily, First dose on 02/18/20 at 2100, For 7 days [facility] Medication administered onsite heparin (porcine) injection 5,000 Units [id number] 02/18/20 09:00:00 PM EST 5000 U Subcutaneous active 5,000 Units , Subcutaneous, Every 12 hours (scheduled), First dose on 02/18/20 at 2100
If platelet count is less than 100,000 or hematocrit is less than 25, or if there is a 5 point decrease in hematocrit, do not give the dose and call physician/designee.
[facility] Medication administered onsite Clotrimazole 10 MG/ML Topical Cream clot rimazole (LOTRIMIN) 1 % cream 1 application clotrimazole (LOTRIMIN) 1 % cream 1 application 2019 09:00:00 PM EST 1 {application} Topical active 1 application, Topical, 2 times daily, First dose on 02/18/20 at 2100, Until Discontinued [facility] Medication administered onsite Metoclopramide 10 MG Oral Tablet metoclopramide (MELVA N) tablet 10 mg metoclopramide (REGLAN) tablet 10 mg 02/18/2020 09:00:00 PM EST 10 mg Oral active 10 mg, Oral, 2 times daily, First dose on 02/18/20 at 2100 [facility] Medication administered onsite 60 ACTUAT formoterol fumarate 0.005 MG/A CTUAT / mometasone furoate 0.2 MG/ACTUAT Metered Dose Inhaler mometasone-formoterol (DULERA) 200-5 MCG/ACT inhaler 2 puff mometasone-formoterol (DULERA) 200-5 MCG/ACT inhaler 2 puff 02/18/2020 08:00:00 PM EST 2 {puff} Inhalation active 2 puff, Inhalation, 2 times daily, First dose on 02/18/20 at 2000 [facility] Medication administered onsite Lisinopril 5 MG Oral Tablet lisinopril (PRINIVIL,ZESTR IL) tablet 5 mg lisinopril (PRINIVIL,ZESTRIL) tablet 5 mg 02/18/2020 06:00:00 PM EST 5 mg O ral active 5 mg, Oral, Daily, First dose on 02/18/20 at 1800 [facility] Medication administered onsite meropenem (MERREM) injection 2 g [id number] 02/18/2020 06:00:00 PM EST 2 g Intravenous aborted Complicated Skin & Skin Structure I nfection 2 g, Intravenous, Every 8 hours (relative), Indications: Complicated Skin & Skin Structure Infection, First dose on 02/18/20 at 1800
Reconstitute with 20 ml STERILE WATER for injection. Administer IV push over 5 minutes. Use within 1 hour of reconstitution.
[facility] Complicated Skin & Skin Structure Infect ion Medication administered onsite pantoprazole 40 MG Delayed Release Oral Tablet pantoprazole (PROTONIX) EC tablet 40 mg pantoprazole (PROTONIX) EC tablet 40 mg 02/18/2020 06:00:[address] 40 mg Oral active Gastroesophageal Reflux Diseas e 40 mg, Oral, Daily, Indications: Gastroesophageal Reflux Disease, First dose on 02/18/20 at 1800 [facility] Gastroesophageal Reflux Disease Medication administered onsite POLYETHYLENE GLYCOL 3350 142 MG/ML Oral Solution polyethylene glycol (GLYCOLAX) packet 17 g polyethylene glycol (GLYCOLAX) packet 17 g 02/18/2020 06:00:00 PM EST 17 g Oral active 17 g, Or al, Daily, First dose on 02/18/20 at 1800
hold for loose stools
[facility] Medication administered onsite Pentoxifylline 400 MG Extended Release O ral Tablet pentoxifylline (TRENTal) CR tablet 400 mg pentoxifylline (TRENTal) CR tablet 400 mg 02/18/2020 0 6:00:00 PM EST 400 mg Oral active 400 mg, Oral, 3 times daily with meals, First dose on 02/18/20 at 1800 [facility] Medication administered onsite Bisacodyl 10 MG Rectal Suppository bisacodyl (DULCOLAX ) suppository 10 mg bisacodyl (DULCOLAX) suppository 10 mg 02/18/2020 06:00:00 PM EST 10 mg Rectal active 10 mg, Rectal, Daily, First dose on 02/18/20 at 1800
hold for loose stools
[facility] Medication administered onsite atorvastatin 80 MG Oral Tablet atorvastatin (LIPITOR) tablet 80 mg atorvastatin (LIPITOR) tablet 80 mg 02/18/2020 06:00:00 PM EST 80 mg Oral active 80 mg, Oral, Daily, First dose on 02/18/20 at 1800 [facility] Medication administered onsite normal saline flush 0.9 % injection 10 mL [id number] 02/18/2020 06:00:00 PM EST 10 mL Intravenous active 10 m L, Intravenous, Every 8 hours (scheduled), First dose on 02/18/20 at 1800
Flush with 10 mL NS prior and post medication administration.Flush with 10 mL NS prior to blood specimen collection and flush with 20 mL to clear solution/drug post blood specimen collection
[facility] Medication administered onsite DAILY CHE (THERAGRAN) 1 tablet [id number] 02/18/2020 06:00:00 PM EST 1 {tbl} Oral active 1 tablet, Oral, Daily, First dose on 02/18/20 at 1800 [facility] Medication administered onsite Escitalopram 10 MG Oral Tablet escitalopram (LEXAPRO) tablet 10 mg escitalopram (LEXAPRO) tablet 10 mg 02/18/2020 06:00:00 PM EST 10 mg Oral active 10 mg, Oral, Daily, First dose on 02/18/20 at 1800 [facility] Medication administered onsite 24 HR Bupropion Hydrochloride 150 MG Ext ended Release Oral Tablet buPROPion (WELLBUTRIN XL) 24 hr tablet 150 mg buPROPion (WELLBUTRIN XL) 24 hr tablet 1 50 mg 02/18/2020 06:00:00 PM EST 150 mg Oral active 150 mg, Oral, Daily, First dose on 02/18/20 at 1800 [facility] Medication administered onsite clopidogrel 75 MG Oral Tablet clopidogrel (PLAVIX) tab let 75 mg clopidogrel (PLAVIX) tablet 75 mg 02/18/2020 06:00:00 PM EST 75 mg Oral active 75 mg, Oral, Daily, First dose on 02/18/20 at 1800 [facility] Medication administered onsite Acetaminophen 325 MG / Oxycodone Hydroch loride 5 MG Oral Tablet oxyCODONE- acetaminophen (PERCOCET) 5-325 MG 1 tablet oxyCODONE-acetaminophen (PERCOCET) 5- 325 MG 1 tablet 02/18/2020 05:13:38 PM EST 1 {tbl} Oral a ctive 1 tablet, Oral, Every 4 hours PRN, moderate pain (4-6), Starting 02/18/20 at 1713, For 7 days [facility] Medication administered onsite Docusate Sodium 100 MG Oral Capsule docusate sodium (C OLACE) capsule 200 mg docusate sodium (COLACE) capsule 200 mg 02/18/2020 05:11:55 PM EST 200 mg Oral active 200 mg, Oral, 2 times daily PRN, constipation, Starting 02/18/20 at 1711
hold for loose stools
[facility] Medication administered onsite Cyclobenzaprine hydrochloride 10 MG Oral Tablet cyclobenzaprine (FLEXERIL) tablet 5 mg cyclobenzaprine (FLEXERIL) tablet 5 mg 02/18/2020 05:11:52 PM ES T 5 mg Oral active 5 mg, Oral , 2 times daily PRN, muscle spasms, Starting 02/18/20 at 1711 [facility] Medication administered onsite Albuterol 0.83 MG/ML Inhalant Solution a lbuterol (PROVENTIL) nebulizer solution 2.5 mg albuterol (PROVENTIL) nebulizer solution 2.5 mg 2019 05:11:19 PM EST 2.5 mg active 2.5 mg, Nebulization, RT every 4 hours as needed, wheezing, shortness of breath, Starting 02/18/20 at 1711 [facility] Medication administered onsite 17 gram/dose 02/17/2020 [...] [facility] DA[facility] CHE (THERAGRAN) per tablet [id number] 02/17/2020 12:00:00 AM EDT 1 {tbl} Oral aborted Take 1 tablet by mouth d [facility] Meropenem 1 GM Meropenem 02/16/2020 01:00:00 AM EDT 2.0 {gm} completed [facility] ([facility]) Nystatin Powder Nystatin Powder 02/16/2020 01:00:00 AM EDT 0 {un it} completed [facility] ([facility]) Trulicity 0.75 MG/0.5ML Trulicity 02/16/2020 01:00:00 AM EDT 1.5 {mg} completed [facility] ([facility]) Tresiba FlexTouch 100 UNIT/ML Tresiba FlexTouch 02/16/2020 01:00:00 AM EDT 50.0 {Units} completed [facility] ([facility]) Albuterol Sulfate HFA 108 (90 Base) MCG/ACT Albuterol Sulfat e HFA 02/16/2020 01:00:00 AM EDT completed [facility] ([facility]) Admelog SoloStar 100 UNIT/ML Admelog SoloStar 02/16/2020 01:00:00 AM E DT completed [facility]SM[facility] ([facility]) Atorvastatin Calcium 80 MG Atorvastatin Calcium 02/16/2020 01:00:00 A M EDT completed [facility] ( [facility]) Breo Ellipta 100-25 MCG/INH Breo Ellipta 02/16/2020 01:00:00 AM EDT completed [facility] ([facility]) Aspirin Aspirin 02/16/2020 01:00:00 AM EDT 0 {mg} compl eted [facility]SM[facility] ([facility]) BuPROPion HBr ER 522 MG BuPROPion HBr ER 02/16/2020 01:00:00 AM EDT 150.0 {mg} completed [facility] ([facility]) MiraLax 17 GM MiraLax 02/16/2020 01:00:00 AM EDT c ompleted [facility] ([facility]) Oxycodone & Tylenol Oxycodone & Tylenol 02/16/2020 01:00:00 AM EDT 0 {mg} completed [facility] ([facility]) Bisacodyl Supp. Bisacodyl Supp. 02/16/2020 01:00:00 AM EDT 0 {mg } completed [facility] ([facility]) Multivitamin Multivitamin 02/16/2020 01:00:00 AM EDT 0 {mg} completed [facility] ([facility]) Normal Saline Flush 0.9 % Normal Saline Flush 02/16/2020 01:00:00 AM E DT completed [facility] ([facility]) Metoclopramide Metoclopramide 02/16/2020 01:00:00 AM EDT 0 {mg} completed [facility] ([facility]) Loratadine 10 MG Loratadine 02/16/2020 01:00:00 AM EDT completed [facility] ([facility] ) Lisinopril 5 MG Lisinopril 02/16/2020 01:00:00 AM EDT completed [facility] ([facility]) Ferrous Sulfate Ferrous Sulfate 02/16/2020 01:00:00 AM EDT 0 {mg } completed [facility] ([facility]) Escitalopram Oxalate 10 MG Escitalopram Oxalate 02/16/2020 01:00:00 A M EDT completed [facility] ( [facility]) Cyclobenzaprine Cyclobenzaprine 02/16/2020 01:00:00 AM EDT 0 {mg } completed [facility] ([facility]) Docusate Sodium Docusate Sodium 02/16/2020 01:00:00 AM EDT 0 {mg } completed [facility] ([facility]) Omeprazole 40 MG Omeprazole 02/16/2020 01:00:00 AM EDT completed [facility] ([facility] ) Ondansetron HCl 4 MG Ondansetron HCl 02/16/2020 01:00:00 AM EDT completed [facility] ([facility]) Heparin Heparin 02/16/2020 01:00:00 AM EDT 0 {ml} compl eted [facility]SMART ([facility]) Steglatro 15 MG Steglatro 02/16/2020 01:00:00 AM EDT completed [facility] ([facility]) Clopidogrel Bisulfate 75 MG Clopidogrel Bisulfate 02/16/2020 01:00: 00 AM EDT completed [facility] ([facility]) Pentoxifylline ER 400 MG Pentoxifylline ER 02/16/2020 01:00:00 AM E DT 400.0 {mg} completed [facility] ([facility]) Pregabalin 150 MG Pregabalin 02/16/2020 01:00:00 AM EDT completed [facility] ([facility] ) meropenem (MERREM) 1 g injection [id number] 02/16/2020 12:00:00 AM E DT aborted Infuse 2gm iv every 8 myranda rs daily until 03/21/20 [facility] 3 ML heparin sodium, porcine 100 UNT/ML Prefilled Syringe heparin 100 UNIT/ML SOLN heparin 100 UNIT/ML SOLN 02/16/2020 12:00:00 AM EDT aborted Infuse 5 ml After dose and as needed to red lumen if applicable [facility] Sodium Chloride Flush (NORMAL SALINE FLUSH) 0.9 % SOLN injec tion [id number] 02/16/2020 12:00:00 AM EDT aborted Infuse 10 ml before and after dose and prn [facility] Chlorhexidine Gluconate (BIOPATCH PROTECTIVE DISK/CHG) (Dres chanel) [facility] [place] [id number] 02/16/2020 12:00:00 AM EDT aborted Apply one patch weekly with dressing change and prn [facility] 10 mg 02/16/2020 12:00:00 AM EDT suppository 12 INSERT ONE SUPPOSITORY RECTALLY EVERY DAY INSERT ONE SUPPOSITORY RECTALLY EVERY DAY SOLD: 02/16/2020 [facility] meropenem (MERREM) 1 g injection [id number] 02/16/2020 12:00:00 AM E DT active Infuse 2gm iv every 8 myranda rs daily until 03/21/20 [facility] 400 mcg 02/16/2020 12:00:00 AM EDT tablet 30 TAKE ONE TABLET BY MOUTH EVERY DAY TAKE ONE TABLET BY MOUTH EVERY DAY SOLD: 02/16/2020 [facility] 5-325 mg 02/16/2020 12:00:00 AM EDT tablet 30 TAKE ONE TO TWO TABLETS BY MOUTH EVERY 4 HOURS NEEDED MAXIMUM DAILY DOSE = 8 TABLETS TAKE ONE TO TWO TABLETS BY MOUTH EVERY 4 HOURS NEEDED MAXIMUM DAILY DOSE = 8 TABLETS SOLD: 02/16/2020 [facility] Bisacodyl 10 MG Rectal Suppository Bisacodyl Laxative [...] SALINE FLUSH) 0.9 % SOLN injurbano timonica [id number] 02/16/2020 12:00:00 AM EDT aborted Infuse 10 ml before and after dose and prn [facility] 3 ML heparin sodium, porcine 100 UNT/ML Prefilled Syringe heparin 100 UNIT/ML SOLN heparin 100 UNIT/ML SOLN 02/16/2020 12:00:00 AM EDT active Infuse 5 ml After dose and as needed to red lumen if applicable [facility] Chlorhexidine Gluconate (BIOPATCH PROTECTIVE DISK/CHG) (Geovanna buchanan) [facility] [place] [id number] 02/16/2020 12:00:00 AM EDT active Apply one patch weekly with dressing change and prn [facility] Aspirin 325 MG Oral Tablet ASPIRIN ADULT 325 MG tablet ASPIRIN ADULT 325 MG tablet 02/16/2020 12:00:00 AM EDT 325 mg Oral active Take 1 tablet (325 mg total) by mouth once for 1 dose [facility] POLYETHYLENE GLYCOL 3350 142 MG/ML Oral Solution polyethylene glycol (GLYCOLAX) 17 g packet polyethylene glycol (GLYCOLAX) 17 g packet 02/16/2020 12:00:00 AM EDT 17 g Oral aborted Take 17 g by russel th daily [facility] Acetaminophen 325 MG / Oxycodone Hydroch loride 5 MG Oral Tablet oxyCODONE- acetaminophen (PERCOCET) 5-325 MG per tablet oxyCODONE-acetaminophen (PERCOCET) 5-325 MG per tablet 02/16/2020 12:00:00 AM EDT Oral active Take 1-2 tablets by mouth every 4 (four) hours as needed Max Daily Amount: 8 tablets [facility] meropenem 2 g in sodium chloride 0.9 % 100 mL IVPB 02/16/2020 12:00:00 AM EDT 2 g Intravenous aborted Osteomyelitis Infuse 2 g into a venous catheter every 8 (eight) hours [facility] Osteomyelitis Bisacodyl 10 MG Rectal Suppository bisacodyl (DULCOLAX ) 10 MG suppository bisacodyl (DULCOLAX) 10 MG suppository 02/16/2020 12:00:00 AM EDT 10 mg Rectal aborted Insert 1 suppository (10 mg total) into the rectum daily [facility] Insulin Glargine 100 UNT/ML Injectable S olution [Lantus] insulin glargine (LANTUS) injection 30 Units insulin glargine (LANTUS) injection 30 Units 02/15/2020 09:00:00 PM EDT 30 U Subcutaneous active 30 Units, Subcutaneous, 2 Times Daily (Lantus), First dose on Em 02/15/20 at 2100
Basal Insulin (Lantus) Adjustments based on AM Blood GlucoseBlood GlucoseAdjustmentLess than 70 mg/dl Nursing to initiate hypoglycemia [id number] to 100 mg/dl Pharmacy to decrease total daily d ose by 20%101 to 200 mg/dl No Change
[facility] Medication administered onsite Insulin Lispro 100 UNT/ML Injectable Kaushal ution insulin lispro (HumaLOG) injection 3-40 Units insulin lispro (HumaLOG) injection 3-40 Units 02/15/20 05:00:00 PM EDT Subcutaneous active 3-4 0 Units, Subcutaneous, MEALSS, First dose on Em 02/15/20 at 1700
20 units Nutritional and Correction Insulin ScaleBlood Glucose (mg/dl) <70 start hypoglycemiaprotocolGlucoseEats >=50% Eats <50%Eats Nothing (mg/dl) of meal of mealor NPO70- 42386 units 7 units 0 [id number] units 10 units 0 [id number] units 13 units 3 - 94749 units 17 units 7 [id number] units 20 units 10 -45139 units 23 units 13 [id number]- 16121 units 27 units 17 units>420 call MD40 units 30 units 20 unitsTest glucose within 30 minutes of insulin administration.Administer insulin within 15 minutes (before or after) of the patient starting to eat.For patients that are NPO, use theNPO (correction) scale to cover POC glucose at 08:00, 12:00, 17:00.
[facility] Medication administered onsite 5-325 mg 02/15/2020 12:00:00 AM EDT tablet 14 TAKE ONE TABLET BY MOUTH EVERY 12 HOURS NEEDED FOR PAIN MAXIMUM DAILY DOSE = 2 TAKE TABLETS TAKE ONE TABLET BY MOUTH EVERY 12 HOURS NEEDED FOR PAIN MAXIMUM DAILY DOSE = 2 TAKE TABLETS SOLD: 02/15/2020 [facility] Insulin Glargine 100 UNT/ML Injectable S olution [Lantus] insulin glargine (LANTUS) injection 26 Units insulin glargine (LANTUS) injection 26 Units 02/14/2020 09:00:00 PM EDT 26 U Subcutaneous aborted 26 Units, Subcutaneous, 2 Times Daily (Lantus), First dose on Wed02/14/20 at 2100
Basal Insulin (Lantus) Adjustments based on AM Blood GlucoseBlood GlucoseAdjustmentLess than 70 mg/dl Nursing to initiate hypoglycemia [id number] to 100 mg/dl Pharmacy to decrease total daily d ose by 20%101 to 200 mg/dl No Change
[facility] Medication administered onsite Morphine Sulfate (PF) injection 2 mg [id number] 02/13/2020 06:36: 23 PM EDT 2 mg Intravenous active 2 mg, In travenous, Every 2 hour PRN, severe pain (7-10), Starting Wed02/13/20 at 1836, For 4 days [facility] Medication administered onsite meropenem (MERREM) 2 g in sodium chloride (NS) 0.9 % 100 mL IVPB 02/13/2020 02:00:00 PM EDT 2 g Intravenous active Osteomyeliti s 2 g, Intravenous, Every 8 hours (relative), First dose on Wed02/13/20 at 1400
This anti- infective requires approval from infectious disease: Please indicate approving infectious disease physician: Dr. Levine [facility] Osteomyelitis Medication administered onsite Morphine Sulfate (PF) injection 2 mg [id number] 02/13/2020 12:00: 00 AM EDT 2 mg Intravenous completed 2 mg, In travenous, Once, Wed02/13/20 at 0000, For 1 dose [facility] Medication administered onsite dextrose 5 % and sodium chloride 0.45 % infusion [id number] 02/12/2020 07:00:00 PM EDT Intravenous aborted at 75 mL/hr, Intravenous, Continuous, Starting Wed02/12/20 at 1900
Saline lock with good PO
[facility] Medication administered onsite Morphine Sulfate (PF) injection 2 mg [id number] 02/12/2020 06:31: 18 PM EDT 2 mg Intravenous completed 2 mg, In travenous, Every 2 hour PRN, severe pain (7-10), severe pain if oral ineffective after 1 hour, Starting Wed02/12/20 at 1831, For 1 day [facility] Medication administered onsite fentaNYL Citrate (PF) (SUBLIMAZE) injection 25 mcg [id number] 02/12/2020 05:33:37 PM EDT 25 ug Intravenous aborted 25 mcg, Intravenous, Every 5 min PRN, moderate pain (4 to 6), max 8 doses, Starting Wed02/12/20 at 1733, For 2 hours, PACU (only) [facility] Medication administered onsite Ceftazidime 1000 MG Injection cefTAZidime (FORTAZ) inj ection 2 g cefTAZidime (FORTAZ) injection 2 g 02/12/2020 04:00:00 PM EDT 2 g Intravenous aborted Osteomyelitis 2 g, Intravenous, Every 8 ho urs (relative), First dose on Wed02/12/20 at 1600
Reconstitute with 10 ml STERILE WATER for injection. Administer IV push over 3 minutes. Use within 1 hour of reconstitution
[facility] Osteomyelitis Medication administered onsite dextrose 5 % and sodium chloride 0.45 % infusion [id number] 0 02/12/2020 12:00:00 AM EDT Intravenous aborted at 75 mL/hr, Intravenous, Continuous, Starting Wed02/12/20 at 0000
Switch to NS if BG >300
[facility] Medication administered onsite Insulin Glargine 100 UNT/ML Injectable S olution [Lantus] insulin glargine (LANTUS) injection 24 Units insulin glargine (LANTUS) injection 24 Units 02/11/2020 09:00:00 PM EDT 24 U Subcutaneous aborted 24 Units, Subcutaneous, 2 Times Daily (Lantus), First dose on Wed02/11/20 at 2100
Basal Insulin (Lantus) Adjustments based on AM Blood GlucoseBlood GlucoseAdjustmentLess than 70 mg/dl Nursing to initiate hypoglycemia [id number] to 100 mg/dl Pharmacy to decrease total daily d ose by 20%101 to 200 mg/dl No Change
[facility] Medication administered onsite Insulin Lispro 100 UNT/ML Injectable Kaushal ution insulin lispro (HumaLOG) injection 3-32 Units insulin lispro (HumaLOG) injection 3-32 Units 02/11/20 20 12:00:00 PM EDT Subcutaneous aborted 3-3 2 Units, Subcutaneous, MEALSS, First dose on 02/11/20 at 1200
16 units Nutritional and Correction Insulin ScaleBlood Glucose (mg/dl) <70 start hypoglycemiaprotocolGlucoseEats >=50% Eats <50%Eats Nothing (mg/dl) of meal of mealor NPO70- 54485 units 5 units 0 -81273 units 8 units 0 extju231-34833 units 11 units 3 yagxv023- 21509 units 13 units 5 -33955 units 16 units 8 [id number] units 19 units 11 [id number]- 17798 units 21 units 13 units>420 call MD32 units 24 units 16 unitsTest glucose within 30 minutes of insulin administration.Administer insulin within 15 minutes (before or after) of the patient starting to eat.For patients that are NPO, use theNPO (correction) scale to cover POC glucose at 08:00, 12:00, 17:00.
[facility] Medication administered onsite Insulin Lispro 100 [...] mealor NPO70- 1209 units 5 units 0 [id number] units 7 units 0 [id number]- 30337 units 9 units 2 [id number] units 12 units 5 [id number] units 14 units 7 - 43117 units 16 units 9 satkc912-24953 units 19 units 12 units>420 call MD28 units 21 units 14 unitsTest glucose within 30 minutes of insulin administration.Administer insulin within 15 minutes (before or after) of the patient starting to eat.For patients that are NPO, use theNPO (correction) scale to cover POC glucose at 08:00, 12:00, 17:00.
[facility] Medication administered onsite Docusate Sodium 100 MG Oral Capsule docusate sodium (C OLACE) capsule 100 mg docusate sodium (COLACE) capsule 100 mg 02/09/2020 09:00:00 PM EDT 100 mg Oral active 100 mg, Oral, 2 times daily, First dose on Wed02/09/20 at 2100
hold for loose stools
[facility] Medication administered onsite vancomycin HCl (VANCOCIN) 1,250 mg in dextrose 5 % 250 mL IV PB 02/09/2020 06:00:00 PM EDT 1250 mg Intravenous aborted Sk in and Soft Tissue Infection 1,250 mg, Intravenous, Admin ister over 90 Minutes, Every 12 hours (relative), First dose on Wed02/09/20 at 1800 [facility] Skin and Soft Tissue Infection Medication [...] minutes. Use within 1 hour of reconstitution
[facility] Osteomyelitis Medication administered onsite Metronidazole 5 MG/ML Injectable Solution metroNIDAZOL E (FLAGYL) IVPB 500 mg metroNIDAZOLE (FLAGYL) IVPB 500 mg 02/09/2020 02:00:00 PM EDT 50 0 mg Intravenous aborted Clostridioides Difficile Associated Diarrhea 500 mg, Intravenous, Administer over 60 Minutes, Every 8 hours (relative), First dose on Wed02/09/20 at 1400 [facility] Clostridioides Difficile Associated Diar trae Medication administered onsite Bisacodyl 10 MG Rectal Suppository bisacodyl (DULCOLAX ) suppository 10 mg bisacodyl (DULCOLAX) suppository 10 mg 02/09/2020 01:00:00 PM EDT 10 mg Rectal active 10 mg, Rectal, Daily, First dose on Wed02/09/20 at 1300
hold for loose stools
[facility] Medication administered onsite POLYETHYLENE GLYCOL 3350 142 MG/ML Oral Solution polyethylene glycol (GLYCOLAX) packet 17 g polyethylene glycol (GLYCOLAX) packet 17 g 02/09/2020 01:00:00 PM EDT 17 g Oral active 17 g, Or al, Daily, First dose on Wed02/09/20 at 1300
hold for loose stools
[facility] Medication administered onsite iodixanol (VISIPAQUE) 320 MG/ML injection 150 mL [id number] 02/09/2020 10:06:16 AM EDT 150 mL Intra-arterial completed 150 mL, Intra-arterial, Once in imaging, contrast, Starting Wed02/09/20 at 1006, For 1 dose [facility] Medication administered onsite heparin (porcine) injection [id number] 02/09/2020 09:24:22 AM EDT completed Code/trauma/sedation medication, Starting Wed02/09/20 at 0924 [facility] Medication administered onsite 2 ML Midazolam 1 MG/ML Injection midazolam (VERSED) in jection midazolam (VERSED) injection 02/09/2020 09:08:16 AM EDT Intravenous co mpleted Intravenous, Code/trauma/sedation medication, Starting Wed02/09/20 at 0908 [facility] Medication administered onsite fentaNYL Citrate (PF) (SUBLIMAZE) injection [id number] 02/09/2020 09:08:10 AM EDT Intravenous completed In travenous, Code/trauma/sedation medication, Starting Wed02/09/20 at 0908 [facility] Medication administered onsite DAILY CHE (THERAGRAN) 1 tablet [id number] 02/09/2020 09:00:00 AM EDT 1 {tbl} Oral active 1 tablet, Oral, Daily, First dose on Wed02/09/20 at 0900 [facility] Medication administered onsite Magnesium Chloride 0.41729 MEQ/ML / Pota ssium Chloride 0.0497 MEQ/ML / Sodium Acetate 0.0163 MEQ/ML / Sodium Chloride 0.0899 MEQ/ML / Sodium gluconate 5.02 MG/ML Injectable Solution [Normosol-R] electrolyte-R (NORMOSOL-R/PLASMALYTE-R) solution electrolyte-R (NORMOSOL-R/PLASMALYTE-R) solution 02/08 03:00:00 AM EDT Intravenous aborted at 7 5 mL/hr, Intravenous, Continuous, Starting Wed02/09/20 at 0300 [facility] Medication administered onsite POLYETHYLENE GLYCOL 3350 142 MG/ML Oral Solution polyethylene glycol (GLYCOLAX) packet 17 g polyethylene glycol (GLYCOLAX) packet 17 g 02/08/2020 02:00:00 PM EDT 17 g Oral aborted 17 g, Or al, Daily, First dose on Wed02/08/20 at 1400, Post-op
Start 2nd POD and continue until result.
[facility] Medication administered onsite Docusate Sodium 100 MG Oral Capsule docusate sodium (C OLACE) capsule 100 mg docusate sodium (COLACE) capsule 100 mg 02/08/2020 02:00:00 PM EDT 100 mg Oral aborted 100 mg, Oral, 2 times daily, First dose on Wed02/08/20 at 1400, Post-op
hold for loose stools
[facility] Medication administered onsite normal saline flush 0.9 % injection 3 mL [id number] 02/08/2020 02:00:00 PM EDT 3 mL Intravenous aborted 3 mL , Intravenous, PROTOCOL, First dose on Wed02/08/20 at 1400, Post-op
May convert IV to a saline lock when taking in good p.o. intake (minimally 600 mL).
[facility] Medication administered onsite Escitalopram 10 MG Oral Tablet escitalopram (LEXAPRO) tablet 10 mg escitalopram (LEXAPRO) tablet 10 mg 02/08/2020 02:00:00 PM EDT 10 mg Oral aborted 10 mg, Oral, Daily, First dose on Em 02/08/20 at 1400 [facility] Medication administered onsite oxyCODONE-acetaminophen (PERCOCET) 5-325 [...] 1315, For 3 days [Order 2 End] [facility] Medication administered onsite Nitroglycerin 0.4 MG Sublingual Tablet n itroglycerin (NITROSTAT) SL tablet 0.4 mg nitroglycerin (NITROSTAT) SL tablet 0.4 mg 02/08/2020 01:15:40 P M EDT 0.4 mg Sublingual active 0.4 mg, S ublingual, Every 5 min PRN, chest pain, Starting Em 02/08/20 at 1315
For angina on CABG patient. Notify MD/PA/FORESTRY HUNTER.
[facility] Medication administered onsite ondansetron (ZOFRAN) injection 4 mg [id number] 02/08/2020 01:15:4 0 PM EDT 4 mg Intravenous active 4 mg, In travenous, Every 6 hours PRN, nausea, vomiting, Starting Em 02/08/20 at 1315
If no response in 15-30 minutes, give metoclopramide 10 mg IV x 1 then q6h prn N/V.
[facility] Medication administered onsite potassium chloride SA (K-DUR,KLOR-CON) CR tablet 40 mEq [id number] 02/08/2020 01:15:40 PM EDT 40 meq Oral active 40 mEq, Oral, As needed, Serum K+ 3.5-3.8, Starting Em 02/08/20 at 1315
For serum creatinine (SCR) 0.8 to 1.5
[facility] Medication administered onsite 50 ML Magnesium [...] each.For serum creatinine (SCR) 0.8 to 1.5
[facility] Medication administered onsite potassium chloride SA (K-DUR,KLOR-CON) CR tablet 20 mEq [id number] 02/08/2020 01:15:40 PM EDT 20 meq Oral active 20 mEq, Oral, As needed, Serum K+ 3.9-4.1, Starting Em 02/08/20 at 1315
For serum creatinine (SCR) 0.8 to 1.5
[facility] Medication administered onsite 50 ML Magnesium [...] hour.For serum creatinine (SCR) 0.8 to 1.5
[facility] Medication administered onsite Aluminum Hydroxide 64 MG/ML Oral Suspens ion aluminum hydroxide (ALTERNAGEL) suspension 15 mL aluminum hydroxide (ALTERNAGEL) suspension 15 mL 02/07 01:15:39 PM EDT 15 mL Oral active 15 mL, Oral, Every 4 hours PRN, for indigestion/ gas, Starting Wed02/08/20 at 1315 [facility] Medication administered onsite Albuterol 0.83 MG/ML Inhalant Solution a lbuterol (PROVENTIL) nebulizer solution 2.5 mg albuterol (PROVENTIL) nebulizer solution 2.5 mg 2019 01:15:39 PM EDT 2.5 mg active 2.5 mg, Nebulization, RT every 2 hours as needed, wheezing, shortness of breath, Starting Wed02/08/20 at 1315 [facility] Medication administered onsite Escitalopram 10 MG Oral Tablet escitalopram (LEXAPRO) tablet 10 mg escitalopram (LEXAPRO) tablet 10 mg 02/08/2020 09:00:00 AM EDT 10 mg Oral active 10 mg, Oral, Daily, First dose on Wed02/08/20 at 0900 [facility] Medication administered onsite normal saline flush 0.9 % injection 10 mL [id number] 02/07/2020 03:00:00 PM EDT 10 mL Intravenous active 10 m L, Intravenous, Every 8 hours (scheduled), First dose on Wed02/07/20 at 1500
Flush with 10 mL NS prior and post medication administration.Flush with 10 mL NS prior to blood specimen collection and flush with 20 mL to clear solution/drug post blood specimen collection
[facility] Medication administered onsite Insulin Glargine 100 UNT/ML Injectable S olution [Lantus] insulin glargine (LANTUS) injection 20 Units insulin glargine (LANTUS) injection 20 Units 02/07/2020 10:00:00 AM EDT 20 U Subcutaneous aborted 20 Units, Subcutaneous, 2 Times Daily (Lantus), First dose on Wed02/07/20 at 1000
Basal Insulin (Lantus) Adjustments based on AM Blood GlucoseBlood GlucoseAdjustmentLess than 70 mg/dl Nursing to initiate hypoglycemia [id number] to 100 mg/dl Pharmacy to decrease total daily d ose by 20%101 to 200 mg/dl No Change
[facility] Medication administered onsite Insulin Lispro 100 [...] <50%Eats Nothing (mg/dl) of meal of mealor [id number] units 4 units 0 ixhtw444- 88969 units 6 units 0 [id number] units 8 units 2 [id number] units 10 units 4 - 90366 units 12 units 6 -94470 units 14 units 8 [id number] units 16 units 10 units>420 call MD24 units 18 units 12 unitsTest glucose within 30 minutes of insulin administration.Administer insulin within 15 minutes (before or after) of the patient starting to eat.For patients that are NPO, use theNPO (correction) scale to cover POC glucose at 08:00, 12:00, 17:00.
[facility] Medication administered onsite vancomycin (VANCOCIN) IVPB 1,000 mg [id number] 02/07/2020 06:00:0 0 AM EDT 1000 mg Intravenous aborted Skin and Soft Tissue Infecti on 1,000 mg, Intravenous, Administer over 1 Hours, Every 12 hours (relative), First dose on Wed02/07/20 at 0600 [facility] Skin and Soft Tissue Infection Medication administered onsite piperacillin-tazobactam (ZOSYN) 3.375 g in sodium chloride (NS) 0.9 % 100 mL IV pigtail 02/06/2020 03:00:00 PM EDT 3.375 g Intravenous aborted Skin and Soft Tissue Infection 3.375 g, Intravenous, Admini ster over 30 Minutes, Every 6 hours (relative), First dose on Wed02/06/20 at 1500 [facility] Skin and Soft Tissue Infection Medication administered onsite valacyclovir 500 MG Oral Tablet valACYclovir (VALTREX) tablet 2,000 mg valACYclovir (VALTREX) tablet 2,000 mg 02/06/2020 03:00:00 PM EDT 2000 mg Oral completed Herpes Labialis 2,000 mg, Oral, 2 times daily, Indications: Herpes Labialis, First dose on Wed02/06/20 at 1500, For 2 doses [facility] Herpes Labialis Medication administered onsite Insulin Glargine 100 UNT/ML Injectable S olution [Lantus] insulin glargine (LANTUS) injection 25 Units insulin glargine (LANTUS) injection 25 Units 02/06/2020 03:00:00 PM EDT 25 U Subcutaneous complete d 25 Units, Subcutaneous, Once, Wed02/06/20 at 1500, For 1 dose
Basal Insulin (Lantus) Adjustments based on AM Blood GlucoseBlood Glucose AdjustmentLess than 70 mg/dl Nursing to initiate hypoglycemia [id number] to 100 mg/dl Pharmacy to decrease total daily dose by 20%101 to 200 mg/dl No Change
[facility] Medication administered onsite vancomycin in 500mL (VANCOCIN) IV 1,500 mg [id number] 02/06/2020 03:00:00 PM EDT 1500 mg Intravenous completed Skin and Soft Tiss ue Infection 1,500 mg, Intravenous, Administer over 120 Minutes, Once, Wed02/06/20 at 1500, For 1 dose [facility] Skin and Soft Tissue Infection Medication administered onsite normal saline flush 0.9 % injection 3 mL [id number] 02/06/2020 06:00:00 AM EDT 3 mL Intravenous aborted 3 mL , Intravenous, PROTOCOL, First dose on Wed02/06/20 at 0600
With good PO intake (600 ml X 1 shift)
[facility] Medication administered onsite Docusate Sodium 100 MG Oral Capsule docusate sodium (C OLACE) capsule 100 mg docusate sodium (COLACE) capsule 100 mg 02/06/2020 06:00:00 AM EDT 100 mg Oral aborted 100 mg, Oral, 2 times daily, First dose on Wed02/06/20 at 0600
hold for loose stools
[facility] Medication administered onsite cefazolin (ANCEF) injection 2 g 02/06/2020 06:00:00 AM EDT 2 g Intravenous completed 2 g, Intravenou s, Administer over 6 Minutes, Every 8 hours (relative), First dose on Wed02/06/20 at 0600, For 2 doses, PACU & Post-op
Start 8 hours after pre-op doseRN may administer IV push or infuse this medication through syringe adapter set ref [id number]. Flush line after use
[facility] Medication administered onsite heparin (porcine) injection 5,000 Units [id number] 02/06/20 06:00:00 AM EDT 5000 U Subcutaneous active 5,000 Units , Subcutaneous, Every 8 hours (scheduled), First dose on Wed02/06/20 at 0600
If platelet count is less than 100,000 or hematocrit is less than 25, or if there is a 5 point decrease in hematocrit, do not give the dose and call physician/designee.
[facility] Medication administered onsite Lisinopril 5 MG Oral Tablet lisinopril (PRINIVIL,ZESTR IL) tablet 5 mg lisinopril (PRINIVIL,ZESTRIL) tablet 5 mg 02/06/2020 05:00:00 AM EDT 5 mg O ral active 5 mg, Oral, Daily, F irst dose on Wed02/06/20 at 0500
Hold for SBP <120
[facility] Medication administered onsite clopidogrel 75 MG Oral Tablet clopidogrel (PLAVIX) tab let 75 mg clopidogrel (PLAVIX) tablet 75 mg 02/06/2020 02:00:00 AM EDT 75 mg Oral active 75 mg, Oral, Daily, First dose on Wed02/06/20 at 0200 [facility] Medication administered onsite Magnesium Chloride 0.77272 MEQ/ML / Pota ssium Chloride 0.0497 MEQ/ML / Sodium Acetate 0.0163 MEQ/ML / Sodium Chloride 0.0899 MEQ/ML / Sodium gluconate 5.02 MG/ML Injectable Solution [Normosol-R] electrolyte-R (NORMOSOL-R/PLASMALYTE-R) solution electrolyte-R (NORMOSOL-R/PLASMALYTE-R) solution 02/05 02:00:00 AM EDT Intravenous aborted at 1 00 mL/hr, Intravenous, Continuous, Starting Wed02/06/20 at 0200 [facility] Medication administered onsite Acetaminophen 325 MG / Oxycodone Hydroch loride 5 MG Oral Tablet oxyCODONE- acetaminophen (PERCOCET) 5-325 MG 2 tablet oxyCODONE-acetaminophen (PERCOCET) 5- 325 MG 2 tablet 02/06/2020 12:54:13 AM EDT 2 {tbl} Oral a borted 2 tablet, Oral, Every 4 hours PRN, severe pain (7-10), Starting Wed02/06/20 at 0054, For 7 days [facility] Medication administered onsite POLYETHYLENE GLYCOL 3350 142 MG/ML Oral Solution polyethylene glycol (GLYCOLAX) packet 17 g polyethylene glycol (GLYCOLAX) packet 17 g 02/06/2020 12:54:13 AM EDT 17 g Oral active 17 g, Or al, Daily PRN, if no result from milk of magnesia (MOM), Starting Wed02/06/20 at 0054
hold for loose stools
[facility] Medication administered onsite Morphine Sulfate (PF) injection 2 mg [id number] 02/06/2020 12:54: 13 AM EDT 2 mg Intravenous aborted 2 mg, In travenous, Every 2 hour PRN, severe pain (7-10), severe pain if oral ineffective after 1 hour, Starting Wed02/06/20 at 0054, For 7 days [facility] Medication administered onsite Acetaminophen 325 MG / Oxycodone Hydroch loride 5 MG Oral Tablet oxyCODONE- acetaminophen (PERCOCET) 5-325 MG 1 tablet oxyCODONE-acetaminophen (PERCOCET) 5- 325 MG 1 tablet 02/06/2020 12:54:13 AM EDT 1 {tbl} Oral a borted 1 tablet, Oral, Every 4 hours PRN, moderate pain (4-6), Starting Wed02/06/20 at 0054, For 7 days [facility] Medication administered onsite Magnesium Hydroxide 80 MG/ML Oral Suspen roxanne magnesium hydroxide (MILK OF MAGNESIA) 400 MG/5ML suspension 30 mL magnesium hydroxide (MILK OF MAGNESIA) 4 00 MG/5ML suspension 30 mL 02/06/2020 12:00:00 AM EDT 30 mL Oral active 30 mL, Oral, Daily PRN, constipation, Starting Wed02/06/20 at 0000
If senna- docusate is not effective
[facility] Medication administered onsite Docusate Sodium 50 MG / sennosides, [facility] 8.6 MG Oral Tablet senna-docusate (PERICOLACE) 8.6-50 MG 2 tablet senna-docusate (PERICOLACE) 8.6-50 MG 2 tablet 02/05/2020 09:00:00 PM EDT 2 {tbl} Oral active 2 tablet, Oral, Nightly, First dose on Wed02/05/20 at 2100
hold for loose stools
[facility] Medication administered onsite iopamidol (ISOVUE-370) 76 % 120 mL [id number] 02/05/2020 09:03:59 AM EDT 120 mL Intravenous completed 120 mL, Intra venous, Once in imaging, contrast, Starting Wed02/05/20 at 0903, For 1 dose [facility] Medication administered onsite Aspirin 325 MG Oral Tablet aspirin tablet 325 mg aspirin tab let 325 mg 02/05/2020 09:00:00 AM EDT 325 mg Oral active 325 mg, Oral, Daily, First dose on Wed02/05/20 at 0900 [facility] Medication administered onsite atorvastatin 80 MG Oral Tablet atorvastatin (LIPITOR) tablet 80 mg atorvastatin (LIPITOR) tablet 80 mg 02/05/2020 09:00:00 AM EDT 80 mg Oral active 80 mg, Oral, Daily, First dose on Wed02/05/20 at 0900 [facility] Medication administered onsite Mupirocin 0.02 MG/MG Topical Ointment mupirocin (BACTR OBAN) 2 % ointment mupirocin (BACTROBAN) 2 % ointment 02/05/2020 09:00:00 AM EDT Topical active Topical, Daily, Firs t dose on Wed02/05/20 at 0900, Until Discontinued [facility] Medication administered onsite duloxetine 60 MG Delayed Release Oral Ca psule DULoxetine (CYMBALTA) DR capsule 60 mg DULoxetine (CYMBALTA) DR capsule 60 mg 02/05/2020 09:00:00 AM EDT 60 mg Oral aborted 60 mg, Oral, 2 times daily, First dose on Wed02/05/20 at 0900 [facility] Medication administered onsite clopidogrel 75 MG Oral Tablet clopidogrel (PLAVIX) tab let 75 mg clopidogrel (PLAVIX) tablet 75 mg 02/05/2020 09:00:00 AM EDT 75 mg Oral aborted 75 mg, Oral, Daily, First dose on Wed02/05/20 at 0900 [facility] Medication administered onsite 24 HR Bupropion Hydrochloride 150 MG Ext ended Release Oral Tablet buPROPion (WELLBUTRIN XL) 24 hr tablet 150 mg buPROPion (WELLBUTRIN XL) 24 hr tablet 1 50 mg 02/05/2020 09:00:00 AM EDT 150 mg Oral active 150 mg, Oral, Daily, First dose on Wed02/05/20 at 0900 [facility] Medication administered onsite pregabalin 75 MG Oral Capsule pregabalin (LYRICA) caps ule 150 mg pregabalin (LYRICA) capsule 150 mg 02/05/2020 09:00:00 AM EDT 150 mg Oral active 150 mg, Oral, 2 times daily, First dose on Wed02/05/20 at 0900, For 25 doses [facility] Medication administered onsite pantoprazole 40 MG Delayed Release Oral Tablet pantoprazole (PROTONIX) EC tablet 40 mg pantoprazole (PROTONIX) EC tablet 40 mg 02/05/2020 09:00:00 AM E DT 40 mg Oral active Gastroesophageal Reflux Diseas e 40 mg, Oral, Daily, Indications: Gastroesophageal Reflux Disease, First dose on Wed02/05/20 at 0900 [facility] Gastroesophageal Reflux Disease Medication administered onsite Clotrimazole 10 MG/ML Topical Cream clot rimazole (LOTRIMIN) 1 % cream 1 application clotrimazole (LOTRIMIN) 1 % cream 1 application 2019 09:00:00 AM EDT 1 {application} Topical active 1 application, Topical, 2 times daily, First dose on Wed02/05/20 at 0900, Until Discontinued [facility] Medication administered onsite 60 ACTUAT formoterol fumarate 0.005 MG/A CTUAT / mometasone furoate 0.2 MG/ACTUAT Metered Dose Inhaler mometasone-formoterol (DULERA) 200-5 MCG/ACT inhaler 2 puff mometasone-formoterol (DULERA) 200-5 MCG/ACT inhaler 2 puff 02/05/2020 08:00:00 AM EDT 2 {puff} Inhalation active 2 pu ff, Inhalation, 2 times daily, First dose on Wed02/05/20 at 0800 [facility] Medication administered onsite Insulin Lispro 100 [...] mealor NPO70- 1205 units 2 units 0 [id number] units 4 units 0 [id number]- 2208 units 5 units 1 [id number] units 6 units 2 - 43624 units 7 units 4 [id number] units 8 units 5 -77215 units 9 units 6 units>420 call MD14 units 11 units 7 unitsTest glucose within 30 minutes of insulin administration.Administer insulin within 15 minutes (before or after) of the patient starting to eat.For patients that are NPO, use theNPO (correction) scale to cover POC glucose at 08:00, 12:00, 17:00.
[facility] Medication administered onsite Pentoxifylline 400 MG Extended Release O ral Tablet pentoxifylline (TRENTal) CR tablet 400 mg pentoxifylline (TRENTal) CR tablet 400 mg 02/05/2020 0 8:00:00 AM EDT 400 mg Oral active 400 mg, Oral, 3 times daily with meals, First dose on Wed02/05/20 at 0800 [facility] Medication administered onsite ferrous sulfate 325 MG Oral Tablet ferrous sulfate tab let 325 mg ferrous sulfate tablet 325 mg 02/05/2020 07:00:00 AM EDT 325 mg Oral acti ve 325 mg, Oral, Daily with breakfast, First dose on Wed02/05/20 at 0700 [facility] Medication administered onsite dextrose 5 % and sodium chloride 0.45 % infusion [id number] 0 02/05/2020 06:00:00 AM EDT Intravenous aborted at 100 mL/hr, Intravenous, Continuous, Starting Wed02/05/20 at 0600
heplock with good PO intake
[facility] Medication administered onsite 500 ML heparin [...] 1 unit/kg/hr IV58.1 - 87 Therapeutic, No Philyr37.1 - 97 Decrease infusion 1 unit/kg/hr IV 97.1 - 110Hold infusion for 30 minutes & decrease infusion 2 units/kg/hr IV> 110 Call MD if patient is bleeding. Hold infusion for 60 minutes & decrease infusion 3 units/kg/hr IVInitial heparin IV infusion rate:Do not exceed 1500 units/hour or 15 units/kg/hr (whichever is less)Infuse this medication only through single port tubing ([employer] Infusion Set ref [id number]). Medication and tubing is to be discarded if infusion off for 4 hours.
[facility] Medication administered onsite normal saline flush 0.9 % injection 3 mL [id number] 02/05/2020 06:00:00 AM EDT 3 mL Intravenous aborted 3 mL , Intravenous, Every 8 hours (scheduled), First dose on Wed02/05/20 at 0600
flush per protocol, D/C Main IV fluid if appropriate
[facility] Medication administered onsite 1 ML heparin [...] 40 units/kg IV (Maximum bolus: 10,000 units)
[facility] Medication administered onsite Acetaminophen 325 MG / Hydrocodone Marline trate 5 MG Oral Tablet HYDROcodone- acetaminophen (NORCO) 5-325 MG per tablet 2 tablet HYDROcodone-acetaminophen (NORCO) 5-325 MG per tablet 2 tablet 02/05/2020 05:13:21 AM EDT 2 { tbl} Oral aborted 2 tablet, Oral, Every 6 hours PRN, severe pain (7-10), Starting Wed02/05/20 at 0513, For 7 days [facility] Medication administered onsite 2 ML Metoclopramide 5 MG/ML Prefilled Sy ringe metoclopramide (REGLAN) injection 10 mg metoclopramide (REGLAN) injection 10 mg 02/05/2020 05:12:06 AM E DT 10 mg Intravenous active 10 mg, I ntravenous, Every 6 hours PRN, for Nausea/Vomiting not relieved by zofran, Starting Wed02/05/20 at 0512 [facility] Medication administered onsite Mineral Oil 1000 MG/ML Enema mineral oil enema 1 enema mineral oil enema 1 enema 02/05/2020 05:12:02 AM EDT 1 {enema} Rectal active 1 enema, Rectal, Daily PRN, constipation, unrelieved by MOM/bisacodyl/senna-docusate, Starting Wed02/05/20 at 0512
hold for loose stools
[facility] Medication administered onsite Acetaminophen 325 MG Oral Tablet acetaminophen (TYLENO L) 325 MG tablet 650 mg acetaminophen (TYLENOL) 325 MG tablet 650 mg 02/05/2020 05:11:58 AM EDT 650 mg Oral active 650 mg, Or al, Every 4 hours PRN, mild pain (1-3), headaches, Starting Wed02/05/20 at 0511
"Maximum dose of acetaminophen is 4,000 mg from all sources in 24 hours."
[facility] Medication administered onsite Cyclobenzaprine hydrochloride 10 MG Oral Tablet cyclobenzaprine (FLEXERIL) tablet 5 mg cyclobenzaprine (FLEXERIL) tablet 5 mg 02/05/2020 05:02:15 AM ED T 5 mg Oral active 5 mg, Oral , 3 times daily PRN, muscle spasms, Starting Wed02/05/20 at 0502 [facility] Medication administered onsite Albuterol 0.83 MG/ML Inhalant Solution a lbuterol (PROVENTIL) nebulizer solution 2.5 mg albuterol (PROVENTIL) nebulizer solution 2.5 mg 2019 05:01:24 AM EDT 2.5 mg active 2.5 mg, Nebulization, RT every 4 hours as needed, wheezing, shortness of breath, Starting Wed02/05/20 at 0501 [facility] Medication administered onsite 4 mg 02/04/2020 [...] BY MOUTH TWICE A DAY SOLD: 01/29/2020 [facility] 5-325 mg 01/26/2020 12:00:00 AM EDT [...] Wheelchair 01/05/2020 12:00:00 AM EDT active [facility] ([facility]) empagliflozin 25 MG Oral Tablet [Jardiance] Jardiance 01/05/2020 12:00:00 AM EDT ORAL active [facility] ([facility]) 5-325 mg 01/05/2020 12:00:00 AM EDT tablet [...] 6 HOURS NEEDED FOR NAUSEA SOLD: 01/05/2020 [facility] 750 mg 12/31/2019 12:00:00 AM EDT tablet 10 TAKE ONE TABLET BY MOUTH EVERY DAY TAKE ONE TABLET BY MOUTH EVERY DAY SOLD: 01/02/2020 [facility] 1 billion cell- 250 mg 12/31/2019 12:00:00 AM EDT tablet 20 TAKE ONE TABLET BY MOUTH TWICE A DAY WITH MEALS TAKE ONE TABLET BY MOUTH TWICE A DAY WITH MEALS SOLD: 01/02/2020 [facility] Clindamycin 150 MG Oral Capsule CLINDAMYCIN HCL 12/31/2019 12:00 :00 AM EDT capsule 30 TAKE ONE CAPSULE BY MOUTH THREE TIMES A DAY TAKE ONE CAPSULE BY MOUTH THREE TIMES A DAY SOLD: 01/02/2020 [facility] 5-325 mg 12/29/2019 12:00:00 AM EDT tablet 21 TAKE ONE TABLET BY MOUTH EVERY 8 HOURS NEEDED FOR PAIN MAXIMUM DAILY DOSE = THREE TABLETS TAKE ONE TABLET BY MOUTH EVERY 8 HOURS NEEDED FOR PAIN MAXIMUM DAILY DOSE = THREE TABLETS SOLD: 12/29/2019 [facility] 100 mg 12/22/2019 12:00:00 AM EDT capsule 20 TAKE ONE CAPSULE BY MOUTH TWICE A DAY FOR 10 DAYS TAKE ONE CAPSULE BY MOUTH TWICE A DAY FOR 10 DAYS SOLD : 12/22/2019 [facility] 5-325 mg 12/21/2019 12:00:00 AM EDT [...] 12/07/2019 12:00:00 AM EDT ORAL active [facility] ([facility], ) 10 mg 12/07/2019 12:00:00 AM EDT [...] 12:00:00 AM EDT ORAL a ctive [facility] ([facility]) 24 HR Nicotine 0.875 MG/HR Transdermal Patch Eq Nicotine 11/16/2019 12:00:00 AM EDT active [facility] ([facility]) 2 % 11/13/2019 12:00:00 AM EDT ointment 22 APPLY TO AFFECTED AREA(S) TOPICALLY ON THE FOOT WOUND ONCE DAILY APPLY TO AFFECTED AREA(S) TOPICALLY ON THE FOOT WOUND ONCE DAILY SOLD: 11/13/2019 [facility] Cyclobenzaprine hydrochloride 5 MG Oral Tablet CYCLOBENZAPRI NE HCL 11/13/2019 12:00:00 AM EDT tablet 14 TAKE 1 TABLET BY MOUTH EVERY 12 HOURS NEEDED FOR SPASMS TAKE 1 TABLET BY MOUTH EVERY 12 HOURS NEEDED FOR SP ASMS SOLD: 11/13/2019 [facility] 2 % 11/13/2019 12:00:00 AM EDT ointment 22 APPLY TO AFFECTED AREA(S) TOPICALLY ON THE FOOT WOUND ONCE DAILY APPLY TO AFFECTED AREA(S) TOPICALLY ON THE FOOT WOUND ONCE DAILY SOLD: 12/04/2019 [facility] Cyclobenzaprine hydrochloride 5 MG Oral Tablet CYCLOBENZAPRI NE HCL 11/13/2019 12:00:00 AM EDT tablet 14 TAKE 1 TABLET BY MOUTH EVERY 12 HOURS NEEDED FOR SPASMS TAKE 1 TABLET BY MOUTH EVERY 12 HOURS NEEDED FOR SP ASMS SOLD: 12/04/2019 [facility] 5-325 mg 11/03/2019 12:00:00 AM EDT [...] MOUTH THREE TIMES A DAY SOLD: 11/03/2019 [facility] atorvastatin 80 MG Oral Tablet ATORVASTATIN [...] 10/24/2019 12:00:00 AM EDT ORAL active [facility] ([facility], ) 5-325 mg 10/19/2019 12:00:00 AM EDT [...] 09/27/2019 12:00:00 AM ED T active [facility] ([facility]) Chantix Starting Month Shahriar Chantix Starting Month Shahriar 2019 12:00:00 AM EDT completed [facility] ([facility]) 0.5 mg (11)- 1 mg [...] 1 2:00:00 AM EDT ORAL active [facility] ([facility]) 5 mg 08/29/2019 12:00:00 AM EDT tablet [...] 08/24/2019 12:00:00 AM EDT a ctive [facility] ([facility]) 200 unit/mL (3 mL) 08/24/2019 [...] active Take 75 mg by mouth daily [facility] 75 mg 07/26/2019 12:00:00 AM EDT [...] EDT active [facility] ( [facility]) 10 mg 07/22/2019 12:00:00 AM EDT tablet [...] 12:00:00 AM EDT ab orted as needed [facility] 10 mg 07/22/2019 12:00:00 AM EDT [...] 07/21/2019 12:00:00 AM EDT ORAL active [facility] ([facility]) Metoclopramide 10 MG Oral Tablet Metoclopramide HCL 07/21/2019 1 2:00:00 AM EDT ORAL active [facility] ( [facility]) Nystatin 07/21/2019 12:00:00 AM EDT active [facility] ([facility]) Metoclopramide 10 MG Oral Tablet metoclopramide (MELVA N) 10 MG tablet metoclopramide (REGLAN) 10 MG tablet 10 mg Oral a ctive Take 10 mg by mouth 2 (two) times a day [facility] 10 mg 06/17/2019 12:00:00 AM EST [...] Ta ke 80 mg by mouth daily [facility] 80 mg 06/15/2019 12:00:00 AM EST tablet 90 TAKE ONE TABLET BY MOUTH IN THE EVENING TAKE ONE TABLET BY MOUTH IN THE EVENING SOLD: 06/18/2019 [facility] atorvastatin 80 MG Oral Tablet Atorvastatin Calcium 06/14/2019 1 2:00:00 AM EST ORAL active [facility] ( [facility]) 0.5 ML dulaglutide 3 MG/ML Auto-Injector [Trulicity] TRULICITY 1.5 MG/0.5ML SOPN TRULICITY 1.5 MG/0.5ML SOPN 4.5 mg Subcutaneous ab orted Inject 4.5 mg under the skin once a week on Wednesday [facility] 200 unit/mL (3 mL) 06/13/2019 12:00:00 [...] AM EST SUBCUTANEOUS active [facility] ([facility]) 800-160 mg 06/08/2019 12:00:00 AM EST tablet 20 TAKE ONE TABLET BY MOUTH TWICE A DAY TAKE ONE TABLET BY MOUTH TWICE A DAY SOLD: 06/10/2019 [facility] 875 mg 05/29/2019 12:00:00 AM EST tablet 20 TAKE ONE TABLET BY MOUTH EVERY 12 HOURS FOR 10 DAYS TAKE ONE TABLET BY MOUTH EVERY 12 HOURS FOR 10 DAYS SO LD: 05/30/2019 [facility] Lisinopril 5 MG Oral Tablet lisinopril (PRINIVIL,ZESTR IL) 5 MG tablet lisinopril (PRINIVIL,ZESTRIL) 5 MG tablet 05/26/2019 12:00:00 AM EST 5 mg O ral active Take 5 mg by mouth daily [facility] Mupirocin 0.02 MG/MG Topical Ointment mupirocin (BACTR OBAN) 2 % ointment mupirocin (BACTROBAN) 2 % ointment 05/26/2019 12:00:00 AM EST aborted APPLY TO AFFECTED AREA S ON FOOT WOUND ONCE DAILY [facility] 2 % 05/26/2019 12:00:00 AM EST ointment 22 APPLY TO AFFECTED AREA(S) ON FOOT WOUND ONCE DAILY APPLY TO AFFECTED AREA(S) ON FOOT WOUND ONCE DAILY [facility] Lisinopril 5 MG Oral Tablet Lisinopril 05/26/2019 12:00:00 AM EST ORAL active [facility] ([facility]) 2 % 05/26/2019 12:00:00 AM EST [...] U-100 05/25/2019 12:00:00 AM EST active [facility] ([facility]) 40 mg 05/25/2019 12:00:00 AM [...] 05/25/2019 12:00:00 AM EST ORAL active [facility] ([facility]) pregabalin 150 MG Oral Capsule Pregabalin 05/25/2019 12:00:00 AM EST ORAL active [facility] ([facility]) 150 mg 05/25/2019 12:00:00 AM [...] HOURS NEEDED FOR MUSCLE SPASMS SOLD: 04/23/2019 [facility] TRESIBA FLEXTOUCH 200 UNIT/ML SOPN [id number] 72 U Subcutaneous active Inject 72 Units under the skin 2 (two) times a day [facility] 5 mg 03/29/2019 12:00:00 AM EST tablet 60 TAKE ONE TABLET BY MOUTH TWICE A DAY TAKE ONE TABLET BY MOUTH TWICE A DAY SOLD: 03/29/2019 [facility] Metoclopramide 5 MG Oral Tablet [Reglan] Reglan 03/29/2019 12:00: 00 AM EST ORAL completed [facility] ([facility]) 150 mg 03/27/2019 12:00:00 AM EST tablet 60 TAKE ONE TABLET BY MOUTH TWICE A DAY TAKE ONE TABLET BY MOUTH TWICE A DAY SOLD: 03/28/2019 [facility] B-D ULTRAFINE III SHORT PEN 31G X 8 MM [facility] [id number] 03/07/2019 12:00:00 AM EST aborted USE ONE PEN NEED LE EVERY DAY FOR TOUEO PEN [facility] 31 gauge x 5/16" 03/07/2019 12:00:00 [...] times a day as needed (for rash) [facility] Aspirin 325 MG Oral Tablet ASPIRIN ADULT 325 MG tablet ASPIRIN ADULT 325 MG tablet 03/06/2019 12:00:00 AM EST 325 mg Oral aborted Take 325 mg by mouth daily [facility] 0.75 mg/0.5 mL 02/27/2019 12:00:00 AM EST pen injector 6 INJECT 0.75 MG UNDER THE SKIN ONCE A WEEK INJECT 0.75 MG UNDER THE SKIN ONCE A WEEK SOLD: 03/17/2019 [facility] 0.5 ML dulaglutide 1.5 MG/ML Auto-Injector [Trulicity] [facility] 02/24/2019 12:00:00 AM EST SUBCUTANEOUS completed [facility] ([facility]) Fluconazole 200 MG Oral Tablet [Diflucan] Diflucan 02/24/2019 1 2:00:00 AM EST completed [facility] ([facility]) BLOOD SUGAR DIAGNOSTIC 02/23/2019 12:00:00 AM EST strip 150 TEST THREE TIMES A DAY WITH INSULIN USE TEST THREE TIMES A DAY WITH INSULIN USE SOLD: 05/28/19 20 [facility] STEGLATRO 15 MG TABS [id number] 15 mg Oral abor chanell Take 15 mg by mouth daily [facility] 15 mg 02/21/2019 12:00:00 AM EST [...] {puff} Inhalation aborted Inhale 1 puff daily [facility] 200-25 mcg/dose 02/16/2019 12:00:00 AM EDT [...] 02/16/2019 12:00:00 AM EDT ORAL completed [facility] ([facility]) pregabalin 150 MG Oral Capsule pregabalin (LYRICA) 150 MG capsule pregabalin (LYRICA) 150 MG capsule 150 mg Oral aborted Take 150 mg by mouth 2 (two) times a day [facility] 325 mg 11/03/2018 12:00:00 AM EDT [...] reyes ONE TOUCH ULTRA TEST test strip [id number] 12/21/2015 12:00:00 AM EDT aborted USE TO TEST THREE TIMES A DA Y [facility] B-D INS SYR ULTRAFINE 1CC/31G 31G X 5/16" 1 ML [facility] [id number] 10/11/2015 12:00:00 AM EDT aborted USE THR EE TIMES A DAY [facility] Insulin Lispro 100 UNT/ML Injectable Kaushal ution insulin lispro (ADMELOG) 100 UNIT/ML injection insulin lispro (ADMELOG) 100 UNIT/ML injection Subcutaneous aborted Inject under the skin 3 times daily sliding scale [facility] Escitalopram 10 MG Oral Tablet escitalopram (LEXAPRO) 10 MG tablet escitalopram (LEXAPRO) 10 MG tablet 10 mg Oral aborted T fito 10 mg by mouth daily [facility] Acetaminophen 325 MG / Hydrocodone Marline trate 5 MG Oral Tablet HYDROcodone- acetaminophen (NORCO) 5-325 MG per tablet HYDROcodone-acetaminophen (NORCO) 5- 325 MG per tablet 1 {tbl} Oral aborted Take 1 tablet by mouth every 6 (six) hours as needed for pain [facility] duloxetine 60 MG Delayed Release Oral Ca psule DULoxetine (CYMBALTA) 60 MG capsule DULoxetine (CYMBALTA) 60 MG capsule 60 mg Oral aborted Take 60 mg by mouth 2 (two) times a day [facility] Insurance Providers Payer name Policy type / Coverage type Policy ID Covered green party ID Covered green party's relationship to amanda Policy Amanda Plan Information [employer] COMMUNITY PLAN MCDO [id number] SP [id number] UN COMMUNITY PLAN MCDO [id number] SP [id number] [facility] O [id number] S [id number] INSURANCE COVID-19 [id number] [facility] MEDICAID [id number] INSURANCE COVID-19 COVID Jojo C OVID [facility] MEDICAID [id number] Jojo [id number] [facility] MEDICAID [id number] Jojo [id number] EMEDNY [id number] SP [id number] HMO BLUE [id number] SP [id number] HMO BLUE [id number] SP [id number] Managed Care - [facility] Community Plan P [id number] S [id number] Medicaid S [id number] S [id number] UN COMMUNITY PLAN MCDO [id number] SP [id number] [id number] SP [id number] [facility] [place] Commercial [id number] Self [id number] [facility] Health Maintenance Organization (HMO) [id number] Self [id number] [place] [facility] Commercial [id number] Self [id number] [place] [facility] Hmo Commercial [id number] Self [id number] [place] Med[place] Part [place] [id number] Self [id number] Ghi FHP-(DO Not Use) Medigap Part B [id number] Self [id number] BS [place] Hmo Blue Option Medigap Part B [id number] Self [id number] [facility] Community Plan Commercial [id number] Self [id number] [place] [facility] [facility] Commercial [id number] Self [id number] [place] [facility] H[employer] Commercial [id number] Self [id number] [place] [facility] Hmo Commercial [id number] Self [id number] [place] [facility] Hmo Commercial [id number] Self [id number] UN COMMUNITY PLAN XIX [id number] 18 [id number] [place] Part [place] [id number] Self [id number] Ghi FHP-(DO Not Use) Medigap Part B [id number] Self [id number] [place] Hmo Blue Option Medigap Part B [id number] Self [id number] [place] [id number] Self [id number] Ghi FHP-(DO Not Use) Medigap Part B [id number] Self [id number] [place] Hmo Blue Option Medigap Part B [id number] Self [id number] [place] [id number] Self [id number] Ghi FHP-(DO Not Use) Medigap Part B [id number] Self [id number] [place] Hmo Blue Option Medigap Part B [id number] Self [id number] [facility] Hmo Commercial [id number] Self [id number] [facility]/MCR Health Maintenance Organization (HMO) [id number] Self [id number] [place] [facility] Hmo Commercial [id number] Self [id number] [facility] Hmo Commercial [id number] Self [id number] [place] [id number] Self [id number] Ghi FHP-(DO Not Use) Medigap Part B [id number] Self [id number] [place] Hmo Blue Option Medigap Part B [id number] Self [id number] [place] [id number] Self [id number] Ghi FHP-(DO Not Use) Medigap Part B [id number] Self [id number] [place] Hmo Blue Option Medigap Part B [id number] Self [id number] [facility] COMMUNITY PLAN MCDHMO [id number] SP [id number] [place] Part [place] [id number] Self [id number] Ghi FHP-(DO Not Use) Medigap Part B [id number] Self [id number] [place] Hmo Blue Option Medigap Part B [id number] Self [id number] [place] [id number] Self [id number] Ghi FHP-(DO Not Use) Medigap Part B [id number] Self [id number] [place] Hmo Blue Option Medigap Part B [id number] Self [id number] [facility] Commercial [id number] Self [id number] [place] [id number] Self [id number] Ghi FHP-(DO Not Use) Medigap Part B [id number] Self [id number] [place] Hmo Blue Option Medigap Part B [id number] Self [id number] [facility] Hmo Commercial [id number] Self [id number] [facility]-Community Plan-[facility] Commercial Self [facility] MEDICAID [id number] Jojo [id number] [facility] MEDICAID [id number] Jojo [id number] Managed Care - Community Plan [facility] P [id number] S [id number] [facility]/MCR Health Maintenance Organization (HMO) Self [facility] MEDICAID RUFIN[place] HMO [id number] S [id number] Managed Care BCBS O [id number] S [id number] Self Pay O [id number] S [id number] Self Pay P UNAVAILABLE S UNAVAILA BLE Medicaid O UNAVAILABLE S UNAVAILA BLE MEDICAID [id number] SP [id number] Problems, Conditions, and Diagnoses Code Display Name Description Problem Type Effective Dates Data Source(s) T81.42XA Infection following a proced ure, deep incisional surgical site, initial encounter Infection following a procedure, deep in cisional surgical site, initial encounter Problem 04/16/2020 12:00:00 AM EST NETSMART ([facility]) 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 Problem 04/16/2020 12:00:00 AM EST NETSMART ([facility]) J44.9 Chronic obstructive pulmonary disease, u nspecified Chronic obstructive pulmonary disease, unspecified Problem 04/16/2020 12:00:00 AM EST NE TSMART ([facility]) E11.40 Type 2 diabetes mellitus with diabetic n europathy, unspecified Type 2 diabetes mellitus with diabetic neuropathy, unspecified Problem 04/16/2020 12:00:00 AM EST NETSMART ([facility] ) M19.90 Unspecified osteoarthritis, unspecified site Unspecified osteoarthritis, unspecified site Problem 04/16/2020 12:00:00 AM EST NETSMART ([facility]) K21.9 Gastro-esophageal reflux disease without esophagitis Gastro-esophageal reflux disease without esophagitis Problem 04/16/2020 12:00:00 AM ES T NETSMART ([facility]) G47.33 Obstructive sleep apnea (adult) (pediatr ic) Obstructive sleep apnea (adult) (pediatric) Problem 04/16/2020 12:00:00 AM EST NETSMART ([facility]) Z95.828 Presence of other vascular implants and grafts Presence of other vascular implants and grafts Problem 04/16/2020 12:00:00 AM EST NETS MART ([facility]) Z91.81 History of falling History of falling Problem 0 12:00:00 AM EST NETSMART ([facility]) Z95.1 Presence of aortocoronary bypass graft P resence of aortocoronary bypass graft Problem 04/16/2020 12:00:00 AM EST NETSMART ([facility]) E11.51 Type 2 diabetes mellitus wit h diabetic peripheral angiopathy without gangrene Type 2 diabetes mellitus with diabetic p eripheral angiopathy without gangrene Problem 04/16/2020 12:00:00 AM EST NETSMART ([facility]) I70.213 Atherosclerosis of [place] ar teries of extremities with intermittent claudication, bilateral legs Atherosclerosis of [place] arteries of ex tremities with intermittent claudication, bilateral legs Problem 020 12:00:00 AM EST NETSMART ([facility] ) I25.10 Atherosclerotic heart diseas e of [place] coronary artery without angina pectoris Atherosclerotic heart disease of [place] coronary artery without angina pectoris Problem 04/16/2020 12:00:00 AM EST NETSMART ([facility]) I10 Essential (primary) hypertension Essential (primary) h ypertension Problem 04/16/2020 12:00:00 AM EST NETSMART ([facility] ) F17.210 Nicotine dependence, cigarettes, uncompl icated Nicotine dependence, cigarettes, uncomplicated Problem 04/16/2020 12:00:00 AM EST NETSMAR T ([facility]) Z79.4 [facility] (current) use of insulin [facility] (cu rrent) use of insulin Problem 04/16/2020 12:00:00 AM [facility] ([facility]) 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 [facility] (current) use of antithrombotics/antiplatelets Problem 020 12:00:00 AM [facility] ([facility] ) Z79.82 [facility] (current) use of aspirin [facility] (cu rrent) use of aspirin Problem 04/16/2020 12:00:00 AM [facility] ([facility]) E11.621 Type 2 diabetes mellitus with foot ulcer Type 2 diabetes mellitus with foot ulcer Problem 04/16/2020 12:00:00 AM [facility] ([facility]) J44.9 COPD (chronic obstructive pulmonary dise ase) COPD (chronic obstructive pulmonary disease) [id number] 04/12/2020 12:00:00 AM [facility] K21.9 Chronic GERD Chronic GERD [id number] 04/12/2020 12:00:00 A M [facility] E11.40 Diabetic neuropathy Diabetic neuropathy [id number] 06/13/2019 12:00:00 AM [facility] E78.5 HLD (hyperlipidemia) HLD (hyperlipidemia) 37430801 04/12/2020 12:00:00 AM [facility] F17.210 Heavy cigarette smoker (20-39 per day) H eavy cigarette smoker (20-39 per day) [id number] 04/12/2020 12:00:00 AM [facility] E11.59 Type 2 diabetes mellitus wit h circulatory disorder, with long-term current use of insulin Type 2 diabetes mellitus with maintenance apprentice y disorder, with long-term current use of insulin [id number] 04/12/2020 12:00:00 AM [facility] S31.109A Right groin wound Right groin wound [id number] 04/12 12:00:00 AM [facility] [id number] Coronary arteriosclerosis Coronary arteriosclerosis Pr oblem 02/20/2020 12:00:00 AM EST MEDENT ([facility]) 47982250 Atherosclerosis of arteries of the extre mities Atherosclerosis of arteries of the extremities Problem 02/20/2020 12:00:00 AM EST MEDEN T ([facility]) 82491596 Infection due to Pseudomonas aeruginosa Infection due to Pseudomonas aeruginosa Problem 02/13/2020 12:00:00 AM EDT MEDENT ([facility] A49.8 Pseudomonas aeruginosa infection Pseudomonas aer uginosa infection [id number] 02/13/2020 12:00:00 AM EDT [facility] [id number] Osteomyelitis of ankle AND/OR foot Osteomyelitis of ankle AND/OR foot Problem 02/07/2020 12:00:00 AM EDT MEDENT ([facility]) M86.9 Osteomyelitis of foot Osteomyelitis of foot [id number] 02/07/2020 12:00:00 AM EDT [facility] Z48.812 Encounter for surgical after care following surgery on the circulatory system Encounter for surgical aftercare followi ng surgery on the circulatory system Problem 02/06/2020 01:00:00 AM EDT NETSMART ([facility]) [id number] Type 2 diabetes mellitus Type 2 diabetes mellitus Prob arnulfo 02/06/2020 12:00:00 AM EDT MEDENT ([facility]) Note: Last Assessment & Plan: Diabetes i s poorly controlled. [id number] Ischemia of right lower extremity Ischem ia of right lower extremity Problem 02/06/2020 12:00:00 AM EDT MEDENT ([facility] 57469077 Hyperlipidemia Hyperlipidemia Problem 02/06/2020 12:00: 00 AM EDT MEDENT ([facility]) Note: Last Assessment & Plan: Started on Atorvastatin 80mg 07/2019. She is tolerating medication without side effects. Due for repeat lipids. If LDL not <70 I recommend consideration to adding Zetia or PCSK9. Lipid order given to patient today [id number] Heavy cigarette smoker (20-39 cigs/day) Heavy cigarette [...] and the risks of continued tobacco abuse. [id number] Chronic obstructive lung disease Chronic obstruc tive lung disease Problem 02/06/2020 12:00:00 [facility] I99.8 Ischemia of right lower extremity Ischemia of ri ght lower extremity [id number] 02/06/2020 12:00:00 AM EDT [facility] L97.423 [id number] Non-pressure chronic ulcer of left heel and midfoot with necrosis of muscle Problem 01/25/2020 12:00:00 AM EDT eCW1 ([facility]) L97.513 [id number] Non-pressure chronic ulcer of other part of right foot with necrosis of muscle Problem 01/25/2020 12:00:00 AM EDT eCW1 ([facility]) [id number] 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 Com plication after wiring of sternum Problem 01/24/2020 12:00:00 AM EDT MEDENT ([facility]) Note: Overview: Added automatically from request for surgery [id number] T81.89XA Protruding sternal wires Protruding sternal wires 6457 200001/24/2020 12:00:00 AM EDT [facility] Z79.4 [id number] [facility] (current) use of insulin Proble m 01/17/2020 12:00:00 AM EDT eCW1 ([facility]) L97.509 143595249 Non-pressure chronic ulcer of other part of unspecified foot with unspecified severity Problem 01/17/2020 12:00:00 AM EDT eCW1 ([facility]) E11.621 [id number] Type 2 diabetes mellitus with foot ulcer Problem 01/17/2020 12:00:00 AM EDT eCW1 ([facility]) [id number] Long-term current use of oral hypoglycem ic medication Long-term current use of oral hypoglycemic medication Problem 01/05/2020 12:00 :00 AM EDT MEDENT ([facility]) 060085670 Peripheral vascular disease Peripheral vascular diseas e Problem 11/20/2019 12:00:00 AM EDT MEDENT ([facility]) Note: Last Assessment & Plan: Following closely with vascular. Smoking cessation strongly advised I73.9 Peripheral vascular disease Peripheral vascular diseas e [id number] 11/20/2019 12:00:00 AM EDT [facility] 15605620 Mild recurrent major depression Mild recurrent m ajor depression Problem 11/16/2019 12:00:00 AM EDT MEDENT ([facility]) Pressure ulcer of left heel, stage 2 Pressure ul cer of left heel, stage 2 Problem 08/20/2019 12:00:00 AM EDT MEDENT ([facility] 881081170 Type 2 diabetes mellitus with ulcer Type 2 diabetes mellitus with ulcer Problem 08/20/2019 12:00:00 AM EDT MEDENT ([facility] [id number] Long-term current use of oral hypoglycem ic medication Long-term current use of oral hypoglycemic medication Problem 07/05/2019 12:00 :00 AM EDT MEDENT ([facility]) Pressure ulcer of other site, stage 2 Pressure u lcer of other site, stage 2 Problem 05/21/2019 12:00:00 AM EST - 08/20/2019 12:00:00 AM ED T MEDENT ([facility] Cellulitis of right lower limb Cellulitis of right low er limb Problem 05/21/2019 12:00:00 AM EST - 08/20/2019 12:00:00 AM EDT MEDENT ([facility] [id number] Coronary atherosclerosis Coronary atherosclerosis Prob arnulfo 05/11/2019 12:00:00 AM EST MEDENT ([facility]) Note: Last Assessment & Plan: See discus roxanne above I25.10 Coronary artery disease invo lving [place] coronary artery of [place] heart without angina pectoris Coronary artery disease involving [place] coronary artery of [place] heart without angina pectoris [id number] 05/11/2019 12:00:00 AM EST [facility] Type 2 diabetes mellitus with diabetic p olyneuropathy Type 2 diabetes mellitus with diabetic polyneuropathy Problem 05/11/2019 12:00:00 AM EST MED ENT ([facility] Corns and callosities Corns and callosities Problem 05/11/2019 12:00:00 AM EST MEDENT ([facility] [id number] Onychomycosis Onychomycosis Problem 05/11/2019 12:00:00 AM EST MEDENT ([facility] [id number] Preoperative state Preoperative state Problem 12:00:00 AM EST MEDENT ([facility]) Note: Last Assessment & Plan: She [...] her PCP Z01.818 Pre-operative clearance Pre-operative clearance [id number] 04/11/2019 12:00:00 AM [facility] I73.9 Peripheral vascular disease, unspecified Peripheral vascular disease, unspecified Diagnosis 2020 12:55:28 PM [facility] Z79.4 [facility] (current) use of insulin [facility] (cu rrent) use of insulin Diagnosis 2020 12:55:[address] [facility] E11.51 Type 2 diabetes mellitus wit h diabetic peripheral angiopathy without gangrene Type 2 diabetes mellitus with diabetic p Diagnosis 2020 12:55:28 PM [facility] E78.5 Hyperlipidemia, unspecified Hyperlipidemia, unspecifie d Diagnosis 2020 12:55:28 PM EST [facility] F17.210 Nicotine dependence, cigarettes, uncompl icated Nicotine dependence, cigarettes, uncompl Diagnosis 2020 12:55:28 PM EST [facility] I25.10 Atherosclerotic heart diseas e of [place] coronary artery without angina pectoris Atherosclerotic heart disease of [place] Diagnosis 2020 12:55:28 PM EST [facility] S31.109A Unspecified open wound of ab dominal wall, unspecified quadrant without penetration into peritoneal cavity, initial encounter Unspecified open wound of abdominal wall Diagnosis 04/10/2020 11:17:08 PM EST [facility] M86.172 Other acute osteomyelitis, left ankle an d foot Other acute osteomyelitis, left ankle an Diagnosis 02/18/2020 04:40:24 PM EST [facility] T81.9XXA Unspecified complication of procedure, i nitial encounter Unspecified complication of procedure, i Diagnosis 02/18/2020 04:40:24 PM EST [facility] T81.89XA Other complications of proce dures, not elsewhere classified, initial encounter Other complications of procedures, not e Diagnosis 02/06/2020 11:29:36 AM EDT [facility] M86.171 Other acute osteomyelitis, right ankle a nd foot Other acute osteomyelitis, right ankle a Diagnosis 02/05/2020 04:17:29 AM EDT [facility] T81.89XA Other complications of proce dures, not elsewhere classified, initial encounter Other complications of procedures, not e Diagnosis 01/23/2020 11:08:56 AM EDT [facility] Practices I21.4 Non-ST elevation (NSTEMI) myocardial inf arction Non-ST elevation (NSTEMI) myocardial inf Diagnosis 11/20/2019 09:49:26 AM EDT [facility] E11.59 Type 2 diabetes mellitus with other circ ulatory complications Type 2 diabetes mellitus with other circ Diagnosis 11/20/2019 09:49:26 AM EDT [facility] E78.49 Other hyperlipidemia Other hyperlipidemia Diagnosis 11/20/2019 09:49:26 AM EDT [facility] Z01.818 Encounter for other preprocedural examin ation Encounter for other preprocedural examin Diagnosis 05/11/2019 10:25:28 AM [facility] Surgeries/Procedures Procedure Description Date Indications Data Source(s) FINE NEEDLE ASPIRATION W/O IMAGING GUIDANCE 05/10/2020 12:00:00 AM EST eCW1 ([facility]) FINE NEEDLE ASPIRATION W/O IMAGING GUIDANCE 04/30/2020 12:00:00 AM EST eCW1 ([facility]) GLUC BLD GLUC MNTR DEV CLEARED FDA SPEC HOME USE POCT GLUCOSE Routine 04/15/2020 12:34 PM EST 04/15/2020 05:34:00 PM [facility] GLUC BLD GLUC MNTR DEV CLEARED FDA SPEC HOME USE POCT GLUCOSE Routine 04/15/2020 8:42 AM EST 04/15/2020 01:42:00 PM [facility] BLOOD COUNT COMPLETE AUTOMATED CBC Routine 04/15/2020 6:43 A M EST 04/15/2020 11:43:00 AM [facility] BASIC METABOLIC PANEL CALCIUM TOTAL BASIC METABOLIC PANEL Timed 04/15/2020 6:43 AM EST 04/15/2020 11:43:00 AM [facility] GLUC BLD GLUC MNTR DEV CLEARED FDA SPEC HOME USE POCT GLUCOSE Routine 04/15/2020 6:17 AM EST 04/15/2020 11:17:00 AM [facility] GLUC BLD GLUC MNTR DEV CLEARED FDA SPEC HOME USE POCT GLUCOSE Routine 04/14/2020 11:33 PM EST 04/15/2020 04:33:00 AM [facility] GLUC BLD GLUC MNTR DEV CLEARED FDA SPEC HOME USE POCT GLUCOSE Routine 04/14/2020 8:27 PM EST 04/15/2020 01:27:00 AM [facility] GLUC BLD GLUC MNTR DEV CLEARED FDA SPEC HOME USE POCT GLUCOSE Routine 04/14/2020 7:04 PM EST 04/15/2020 12:04:00 AM [facility] GLUC BLD GLUC MNTR DEV CLEARED FDA SPEC HOME USE POCT GLUCOSE Routine 04/14/2020 12:46 PM EST 04/14/2020 05:46:00 PM EST [facility] GLUC BLD GLUC MNTR DEV CLEARED FDA SPEC HOME USE POCT GLUCOSE Routine 04/14/2020 10:32 AM EST 04/14/2020 03:32:00 PM EST [facility] GLUC BLD GLUC MNTR DEV CLEARED FDA SPEC HOME USE POCT GLUCOSE Routine 04/14/2020 10:04 AM EST 04/14/2020 03:04:00 PM EST [facility] GLUC BLD GLUC MNTR DEV CLEARED FDA SPEC HOME USE POCT GLUCOSE Routine 04/14/2020 9:39 AM EST 04/14/2020 02:39:00 PM [facility] GLUC BLD GLUC MNTR DEV CLEARED FDA SPEC HOME USE POCT GLUCOSE Routine 04/14/2020 8:42 AM EST 04/14/2020 01:42:00 PM [facility] BLOOD COUNT COMPLETE AUTOMATED CBC Routine 04/14/2020 6:46 A M EST 04/14/2020 11:46:00 AM [facility] BASIC METABOLIC PANEL CALCIUM TOTAL BASIC METABOLIC PANEL Timed 04/14/2020 6:46 AM EST 04/14/2020 11:46:00 AM [facility] GLUC BLD GLUC MNTR DEV CLEARED FDA SPEC HOME USE POCT GLUCOSE Routine 04/13/2020 6:25 PM EST 04/13/2020 11:25:00 PM [facility] GLUC BLD GLUC MNTR DEV CLEARED FDA SPEC HOME USE POCT GLUCOSE Routine 04/13/2020 1:04 PM EST 04/13/2020 06:04:00 PM [facility] GLUC BLD GLUC MNTR DEV CLEARED FDA SPEC HOME USE POCT GLUCOSE Routine 04/13/2020 9:04 AM EST 04/13/2020 02:04:00 PM [facility] BLOOD COUNT COMPLETE AUTOMATED CBC Routine 04/13/2020 8:50 A M EST 04/13/2020 01:50:00 PM [facility] DRUG SCREEN QUALITATIVE VANCOMYCIN VANCOMYCIN, TROUGH Routine 04/13/2020 8:50 AM EST 04/13/2020 01:50:00 PM [facility] BASIC METABOLIC PANEL CALCIUM TOTAL BASIC METABOLIC PANEL Routi ne 04/13/2020 8:50 AM EST 04/13/2020 01:50:00 PM [facility] GLUC BLD GLUC MNTR DEV CLEARED FDA SPEC HOME USE POCT GLUCOSE Routine 04/12/2020 9:16 PM EST 04/13/2020 02:16:00 AM [facility] GLUC BLD GLUC MNTR DEV CLEARED FDA SPEC HOME USE POCT GLUCOSE Routine 04/12/2020 8:11 PM EST 04/13/2020 01:11:00 AM [facility] GLUC BLD GLUC MNTR DEV CLEARED FDA SPEC HOME USE POCT GLUCOSE Routine 04/12/2020 6:16 PM EST 04/12/2020 11:16:00 PM [facility] GLUC BLD GLUC MNTR DEV CLEARED FDA SPEC HOME USE POCT GLUCOSE Routine 04/12/2020 2:39 PM EST 04/12/2020 07:39:00 PM [facility] GLUC BLD GLUC MNTR DEV CLEARED FDA SPEC HOME USE POCT GLUCOSE Routine 04/12/2020 2:12 PM EST 04/12/2020 07:12:00 PM [facility] GLUC BLD GLUC MNTR DEV CLEARED FDA SPEC HOME USE POCT GLUCOSE Routine 04/12/2020 1:52 PM EST 04/12/2020 06:52:00 PM [facility] GLUC BLD GLUC MNTR DEV CLEARED FDA SPEC HOME USE POCT GLUCOSE Routine 04/12/2020 1:38 PM EST 04/12/2020 06:38:00 PM [facility] GLUC BLD GLUC MNTR DEV CLEARED FDA SPEC HOME USE POCT GLUCOSE Routine 04/12/2020 8:58 AM EST 04/12/2020 01:58:00 PM [facility] BLOOD COUNT COMPLETE AUTOMATED CBC Routine 04/12/2020 6:45 A M EST 04/12/2020 11:45:00 AM [facility] BASIC METABOLIC PANEL CALCIUM TOTAL BASIC METABOLIC PANEL Routi ne 04/12/2020 6:45 AM EST 04/12/2020 11:45:00 AM EST [facility] GLUC BLD GLUC MNTR DEV CLEARED FDA SPEC HOME USE POCT GLUCOSE Routine 04/11/2020 7:35 PM EST 04/12/2020 12:35:00 AM [facility] GLUC BLD GLUC MNTR DEV CLEARED FDA SPEC HOME USE POCT GLUCOSE Routine 04/11/2020 6:18 PM EST 04/11/2020 11:18:00 PM [facility] GLUC BLD GLUC MNTR DEV CLEARED FDA SPEC HOME USE POCT GLUCOSE Routine 04/11/2020 12:27 PM EST 04/11/2020 05:27:00 PM [facility] GLUC BLD GLUC MNTR DEV CLEARED FDA SPEC HOME USE POCT GLUCOSE Routine 04/11/2020 11:52 AM EST 04/11/2020 04:52:00 PM [facility] GLUC BLD GLUC MNTR DEV CLEARED FDA SPEC HOME USE POCT GLUCOSE Routine 04/11/2020 11:38 AM EST 04/11/2020 04:38:00 PM [facility] GLUC BLD GLUC MNTR DEV CLEARED FDA SPEC HOME USE POCT GLUCOSE Routine 04/11/2020 11:23 AM EST 04/11/2020 04:23:00 PM [facility] CTA ABDL AORTA&BI ILIOFEM W/CONTRAST&POSTPROCESS CT A NGIOGRAM ABDOMINAL AORTA AND BILATERAL RUNOFF Routine 04/11/2020 9:48 AM EST 04/11/2020 02:48:50 PM [facility] BLOOD COUNT COMPLETE AUTOMATED CBC Routine 04/11/2020 8:28 A M EST 04/11/2020 01:28:00 PM [facility] DRUG SCREEN QUALITATIVE VANCOMYCIN VANCOMYCIN, RANDOM STAT 04/11/2020 8:28 AM EST 04/11/2020 01:28:00 PM [facility] BASIC METABOLIC PANEL CALCIUM TOTAL BASIC METABOLIC PANEL Routi ne 04/11/2020 8:28 AM EST 04/11/2020 01:28:00 PM [facility] GLUC BLD GLUC MNTR DEV CLEARED FDA SPEC HOME USE POCT GLUCOSE Routine 04/11/2020 8:09 AM EST 04/11/2020 01:09:00 PM [facility] GLUC BLD GLUC MNTR DEV CLEARED FDA SPEC HOME USE POCT GLUCOSE Routine 04/11/2020 5:21 AM EST 04/11/2020 10:21:00 AM [facility] ECG ROUTINE ECG W/LEAST 12 LDS TRCG ONLY W/O I&R ECG 12-LEAD Routine 04/11/2020 4:53 AM EST 04/11/2020 09:53:27 AM EST [facility] GLUC BLD GLUC MNTR DEV CLEARED FDA SPEC HOME USE POCT GLUCOSE Routine 04/11/2020 1:07 AM EST 04/11/2020 06:07:00 AM [facility] IADNA S AUREUS METHICILLIN RESIST AMP PROBE TQ MRSA SCREEN BY P CR Routine 04/11/2020 12:50 AM EST 04/11/2020 05:50:00 AM [facility] CUL BACT XCPT URINE BLOOD/STOOL AEROBIC ISOL WOUND CULTURE Ro utine 04/11/2020 12:50 AM EST 04/11/2020 05:50:00 AM [facility] HEMOGLOBIN GLYCOSYLATED A1C HEMOGLOBIN A1C Routine 04/11/2020 12:47 AM EST 04/11/2020 05:47:00 AM [facility] BLOOD COUNT COMPLETE AUTOMATED CBC Routine 04/11/2020 12:41 A M EST 04/11/2020 05:41:00 AM [facility] COMPREHENSIVE METABOLIC PANEL COMPREHENSIVE METABOLIC PANEL Rou jw 04/11/2020 12:41 AM EST 04/11/2020 05:41:00 AM [facility] GLUC BLD GLUC MNTR DEV CLEARED FDA SPEC HOME USE POCT GLUCOSE Routine 04/11/2020 12:29 AM EST 04/11/2020 05:29:00 AM EST [facility] FINE NEEDLE ASPIRATION W/O IMAGING GUIDANCE 04/05/2020 12:00:00 AM EST [email or web address] ([facility]) DUP-SCAN LXTR ART/ARTL BPGS COMPL BI STUDY 03/21/2020 12:00:00 AM EST JOSE ([facility]) FINE NEEDLE ASPIRATION W/O IMAGING GUIDANCE 03/21/2020 12:00:00 AM EST [email or web address] ([facility]) DEBRIDEMENT NAIL ANY METHOD 6/> 03/05/2020 12:00:00 AM EST MED[facility] ([facility] FINE NEEDLE ASPIRATION W/O IMAGING GUIDANCE 02/29/2020 12:00:00 AM EST [email or web address] ([facility]) GLUC BLD GLUC MNTR DEV CLEARED FDA SPEC HOME USE POCT GLUCOSE Routine 02/20/2020 5:06 PM EST 02/20/2020 10:06:00 PM EST [facility] GLUC BLD GLUC MNTR DEV CLEARED FDA SPEC HOME USE POCT GLUCOSE Routine 02/20/2020 11:28 AM EST 02/20/2020 04:28:00 PM [facility] GLUC BLD GLUC MNTR DEV CLEARED FDA SPEC HOME USE POCT GLUCOSE Routine 02/20/2020 10:36 AM EST 02/20/2020 03:36:00 PM [facility] GLUC BLD GLUC MNTR DEV CLEARED FDA SPEC HOME USE POCT GLUCOSE Routine 02/20/2020 8:25 AM EST 02/20/2020 01:25:00 PM [facility] BLOOD COUNT COMPLETE AUTOMATED CBC Timed 02/20/2020 3:36 A M EST 02/20/2020 08:36:00 AM [facility] 2019 NCOV AMPLIFIED 2019 NCOV AMPLIFIED Routine 02/20/2020 12:00 AM EST 02/20/2020 05:00:00 AM [facility] GLUC BLD GLUC MNTR DEV CLEARED FDA SPEC HOME USE POCT GLUCOSE Routine 02/19/2020 6:07 PM EST 02/19/2020 11:07:00 PM [facility] GLUC BLD GLUC MNTR DEV CLEARED FDA SPEC HOME USE POCT GLUCOSE Routine 02/19/2020 12:04 PM EST 02/19/2020 05:04:00 PM [facility] GLUC BLD GLUC MNTR DEV CLEARED FDA SPEC HOME USE POCT GLUCOSE Routine 02/19/2020 7:41 AM EST 02/19/2020 12:41:00 PM [facility] BASIC METABOLIC PANEL CALCIUM TOTAL BASIC METABOLIC PANEL Routi ne 02/19/2020 6:36 AM EST 02/19/2020 11:36:00 AM [facility] GLUC BLD GLUC MNTR DEV CLEARED FDA SPEC HOME USE POCT GLUCOSE Routine 02/18/2020 7:30 PM EST 02/19/2020 12:30:00 AM [facility] BLOOD COUNT COMPLETE AUTOMATED CBC Routine 02/18/2020 6:23 P M EST 02/18/2020 11:23:00 PM [facility] HEMOGLOBIN GLYCOSYLATED A1C HEMOGLOBIN A1C Routine 02/18/2020 6:23 PM EST 02/18/2020 11:23:00 PM [facility] GLUC BLD GLUC MNTR DEV CLEARED FDA SPEC HOME USE POCT GLUCOSE Routine 02/18/2020 5:48 PM EST 02/18/2020 10:48:00 PM [facility] GLUC BLD GLUC MNTR DEV CLEARED FDA SPEC HOME USE POCT GLUCOSE Routine 02/18/2020 5:16 PM EST 02/18/2020 10:16:00 PM [facility] GLUC BLD GLUC MNTR DEV CLEARED FDA SPEC HOME USE POCT GLUCOSE Routine 02/18/2020 5:02 PM EST 02/18/2020 10:02:00 PM [facility] GLUC BLD GLUC MNTR DEV CLEARED FDA SPEC HOME USE POCT GLUCOSE Routine 02/18/2020 4:53 PM EST 02/18/2020 09:53:00 PM [facility] GLUC BLD GLUC MNTR DEV CLEARED FDA SPEC HOME USE POCT GLUCOSE Routine 02/16/2020 7:23 AM EDT 02/16/2020 11:23:00 AM EDT [facility] GLUC BLD GLUC MNTR DEV CLEARED FDA SPEC HOME USE POCT GLUCOSE Routine 02/15/2020 5:11 PM EDT 02/15/2020 09:11:00 PM EDT [facility] GLUC BLD GLUC MNTR DEV CLEARED FDA SPEC HOME USE POCT GLUCOSE Routine 02/15/2020 12:23 PM EDT 02/15/2020 04:23:00 PM EDT [facility] GLUC BLD GLUC MNTR DEV CLEARED FDA SPEC HOME USE POCT GLUCOSE Routine 02/15/2020 8:47 AM EDT 02/15/2020 12:47:00 PM EDT [facility] BLOOD COUNT COMPLETE AUTOMATED CBC Timed 02/15/2020 5:24 A M EDT 02/15/2020 09:24:00 AM EDT [facility] BASIC METABOLIC PANEL CALCIUM TOTAL BASIC METABOLIC PANEL Timed 02/15/2020 5:24 AM EDT 02/15/2020 09:24:00 AM EDT [facility] GLUC BLD GLUC MNTR DEV CLEARED FDA SPEC HOME USE POCT GLUCOSE Routine 02/14/2020 6:11 PM EDT 02/14/2020 10:11:00 PM EDT [facility] GLUC BLD GLUC MNTR DEV CLEARED FDA SPEC HOME USE POCT GLUCOSE Routine 02/14/2020 1:01 PM EDT 02/14/2020 05:01:00 PM EDT [facility] GLUC BLD GLUC MNTR DEV CLEARED FDA SPEC HOME USE POCT GLUCOSE Routine 02/14/2020 9:01 AM EDT 02/14/2020 01:01:00 PM EDT [facility] BLOOD COUNT COMPLETE AUTOMATED CBC Timed 02/14/2020 4:58 A M EDT 02/14/2020 08:58:00 AM EDT [facility] BASIC METABOLIC PANEL CALCIUM TOTAL BASIC METABOLIC PANEL Timed 02/14/2020 4:58 AM EDT 02/14/2020 08:58:00 AM EDT [facility] GLUC BLD GLUC MNTR DEV CLEARED FDA SPEC HOME USE POCT GLUCOSE Routine 02/13/2020 5:52 PM EDT 02/13/2020 09:52:00 PM EDT [facility] GLUC BLD GLUC MNTR DEV CLEARED FDA SPEC HOME USE POCT GLUCOSE Routine 02/13/2020 12:20 PM EDT 02/13/2020 04:20:00 PM EDT [facility] GLUC BLD GLUC MNTR DEV CLEARED FDA SPEC HOME USE POCT GLUCOSE Routine 02/13/2020 9:27 AM EDT 02/13/2020 01:27:00 PM EDT [facility] GLUC BLD GLUC MNTR DEV CLEARED FDA SPEC HOME USE POCT GLUCOSE Routine 02/13/2020 8:48 AM EDT 02/13/2020 12:48:00 PM EDT [facility] BLOOD COUNT COMPLETE AUTOMATED CBC Timed 02/13/2020 5:15 A M EDT 02/13/2020 09:15:00 AM EDT [facility] BASIC METABOLIC PANEL CALCIUM TOTAL BASIC METABOLIC PANEL Timed 02/13/2020 5:15 AM EDT 02/13/2020 09:15:[address] [facility] GLUC BLD GLUC MNTR DEV CLEARED FDA SPEC HOME USE POCT GLUCOSE Routine 02/12/2020 7:55 PM EDT 02/12/2020 11:55:00 PM EDT [facility] GLUC BLD GLUC MNTR DEV CLEARED FDA SPEC HOME USE POCT GLUCOSE Routine 02/12/2020 5:46 PM EDT 02/12/2020 09:46:00 PM EDT [facility] BYP OTH/THN VEIN FEMORAL-POPLITEAL CREATION, BYPASS, ARTERIAL, FEMORAL TO POPLITEAL, USING GRAFT 02/12/2020 1:48 PM EDT Ischemic leg 02/12/2020 05:48:00 PM EDT - 02/12/2020 10:03:00 PM EDT Ischemic leg [facility] Ischemic leg DEBRIDEMENT SUBCUTANEOUS TISSUE 20 SQ CM/< DEBRIDEMENT, WOUND 02/12/2020 1:48 PM EDT Ischemic leg 02/12/2020 05:48:00 PM EDT - 02/12/2020 10:03:00 PM EDT Ischemic leg [facility] Ischemic leg GLUC BLD GLUC MNTR DEV CLEARED FDA SPEC HOME USE POCT GLUCOSE Routine 02/12/2020 12:48 PM EDT 02/12/2020 04:48:00 PM EDT [facility] GLUC BLD GLUC MNTR DEV CLEARED FDA SPEC HOME USE POCT GLUCOSE Routine 02/12/2020 12:07 PM EDT 02/12/2020 04:07:00 PM EDT [facility] GLUC BLD GLUC MNTR DEV CLEARED FDA SPEC HOME USE POCT GLUCOSE Routine 02/12/2020 9:12 AM EDT 02/12/2020 01:12:00 PM EDT [facility] BLOOD COUNT COMPLETE AUTOMATED CBC Timed 02/12/2020 3:45 A M EDT 02/12/2020 07:45:00 AM EDT [facility] BASIC METABOLIC PANEL CALCIUM TOTAL BASIC METABOLIC PANEL Timed 02/12/2020 3:45 AM EDT 02/12/2020 07:45:00 AM EDT [facility] 2019 NCOV AMPLIFIED 2019 NCOV AMPLIFIED STAT 02/12/2020 12:00 AM EDT 02/12/2020 04:00:00 AM EDT [facility] GLUC BLD GLUC MNTR DEV CLEARED FDA SPEC HOME USE POCT GLUCOSE Routine 02/11/2020 11:55 PM EDT 02/12/2020 03:55:00 AM EDT [facility] DEBRIDEMENT SUBCUTANEOUS TISSUE 20 SQ CM/< 02/12/2020 12:00:00 AM EDT [facility] ([facility]) DEBRIDEMENT BONE MUSCLE &/FASCIA 20 SQ CM/< 02/12/2020 12:00:00 AM EDT [facility] ([facility]) Bypass Graft W/Vein Femoral-Popliteal 02/12/2020 12:00 :00 AM EDT [facility] ([facility]) Bypass Graft Other Than Vein Femoral-Popliteal 020 12:00:00 AM EDT [facility] ([facility]) GLUC BLD GLUC MNTR DEV CLEARED FDA SPEC HOME USE POCT GLUCOSE Routine 02/11/2020 4:52 PM EDT 02/11/2020 08:52:00 PM EDT [facility] GLUC BLD GLUC MNTR DEV CLEARED FDA SPEC HOME USE POCT GLUCOSE Routine 02/11/2020 2:11 PM EDT 02/11/2020 06:11:00 PM EDT [facility] GLUC BLD GLUC MNTR DEV CLEARED FDA SPEC HOME USE POCT GLUCOSE Routine 02/11/2020 8:49 AM EDT 02/11/2020 12:49:00 PM EDT [facility] BLOOD COUNT COMPLETE AUTOMATED CBC Timed 02/11/2020 5:30 A M EDT 02/11/2020 09:30:00 AM EDT [facility] MAGNESIUM MAGNESIUM Timed 02/11/2020 5:30 AM EDT 02/11/2020 09:30:00 AM EDT [facility] DRUG SCREEN QUALITATIVE VANCOMYCIN VANCOMYCIN, TROUGH STAT 02/11/2020 5:30 AM EDT 02/11/2020 09:30:00 AM EDT [facility] BASIC METABOLIC PANEL CALCIUM TOTAL BASIC METABOLIC PANEL Timed 02/11/2020 5:30 AM EDT 02/11/2020 09:30:00 AM EDT [facility] GLUC BLD GLUC MNTR DEV CLEARED FDA SPEC HOME USE POCT GLUCOSE Routine 02/10/2020 5:13 PM EDT 02/10/2020 09:13:00 PM EDT [facility] GLUC BLD GLUC MNTR DEV CLEARED FDA SPEC HOME USE POCT GLUCOSE Routine 02/10/2020 3:21 PM EDT 02/10/2020 07:21:00 PM EDT [facility] GLUC BLD GLUC MNTR DEV CLEARED FDA SPEC HOME USE POCT GLUCOSE Routine 02/10/2020 1:05 PM EDT 02/10/2020 05:05:00 PM EDT [facility] GLUC BLD GLUC MNTR DEV CLEARED FDA SPEC HOME USE POCT GLUCOSE Routine 02/10/2020 9:33 AM EDT 02/10/2020 01:33:00 PM EDT [facility] BLOOD COUNT COMPLETE AUTOMATED CBC Timed 02/10/2020 3:40 A M EDT 02/10/2020 07:40:00 AM EDT [facility] BLOOD TYPING ABO TYPE AND SCREEN Routine 02/10/2020 3:40 AM EDT 02/10/2020 07:40:00 AM EDT [facility] MAGNESIUM MAGNESIUM Timed 02/10/2020 3:40 AM EDT 02/10/2020 07:40:00 AM EDT [facility] BASIC METABOLIC PANEL CALCIUM TOTAL BASIC METABOLIC PANEL Timed 02/10/2020 3:40 AM EDT 02/10/2020 07:40:00 AM EDT [facility] GLUC BLD GLUC MNTR DEV CLEARED FDA SPEC HOME USE POCT GLUCOSE Routine 02/09/2020 6:20 PM EDT 02/09/2020 10:20:00 PM EDT [facility] GLUC BLD GLUC MNTR DEV CLEARED FDA SPEC HOME USE POCT GLUCOSE Routine 02/09/2020 10:18 AM EDT 02/09/2020 02:18:00 PM EDT [facility] INTRODUCTION CATHETER AORTA IR IS ARTERIOGRAM ILIAC SELECTIVE R outine 02/09/2020 10:05 AM EDT 02/09/2020 02:05:29 PM EDT [facility] DRUG SCREEN QUALITATIVE VANCOMYCIN VANCOMYCIN, TROUGH STAT 02/09/2020 8:30 AM EDT 02/09/2020 12:30:00 PM EDT [facility] BLOOD COUNT COMPLETE AUTOMATED CBC Timed 02/09/2020 3:00 A M EDT 02/09/2020 07:00:00 AM EDT [facility] MAGNESIUM MAGNESIUM Timed 02/09/2020 3:00 AM EDT 02/09/2020 07:00:00 AM EDT [facility] BASIC METABOLIC PANEL CALCIUM TOTAL BASIC METABOLIC PANEL Timed 02/09/2020 3:00 AM EDT 02/09/2020 07:00:00 AM EDT [facility] Catheter Introduction Aorta 02/09/2020 12:00:00 [...] 5:50 PM EDT 02/08/2020 09:50:00 PM EDT [facility] MRI LOWER EXTREM OTH/THN JT W/O CONTR MATRL MRI LOW E XT NO JNT WO CONTRAST LEFT Routine 02/08/2020 3:51 PM EDT 02/08/2020 07:51 :36 PM EDT [facility] GLUC BLD GLUC MNTR DEV CLEARED FDA SPEC HOME USE POCT GLUCOSE Routine 02/08/2020 2:49 PM EDT 02/08/2020 06:49:00 PM EDT [facility] GLUC BLD GLUC MNTR DEV CLEARED FDA SPEC HOME USE POCT GLUCOSE Routine 02/08/2020 12:59 PM EDT 02/08/2020 04:59:00 PM EDT [facility] XR CHEST PORTABLE XR CHEST PORTABLE STAT 02/08/2020 12:19 PM EDT 02/08/2020 04:19:34 PM EDT [facility] ECG ROUTINE ECG W/LEAST 12 LDS W/I&R ECG 12-LEAD Routine 02/08/2020 12:15 PM EDT 02/08/2020 04:15:50 PM EDT [facility] GLUC BLD GLUC MNTR DEV CLEARED FDA SPEC HOME USE POCT GLUCOSE Routine 02/08/2020 12:06 PM EDT 02/08/2020 04:06:00 PM EDT [facility] REMOVAL IMPLANT DEEP REMOVAL, STERNAL WIRE, WITH REWIRING IF IN DICATED 02/08/2020 10:31 AM EDT Protruding sternal wires, initial encounter 02/08/2020 02:31:00 PM EDT - 02/08/2020 04:18:00 PM EDT Protruding sternal wires, initial encounter [facility] Protruding sternal wires, initial encoun ter GLUC BLD GLUC MNTR DEV CLEARED FDA SPEC HOME USE POCT GLUCOSE Routine 02/08/2020 8:17 AM EDT 02/08/2020 12:17:00 PM EDT [facility] SEDIMENTATION RATE RBC AUTOMATED SEDIMENTATION RATE Routine 02/08/2020 5:30 AM EDT 02/08/2020 09:30:00 AM EDT [facility] C-REACTIVE PROTEIN C-REACTIVE PROTEIN Routine 02/08/2020 5:30 AM E DT 02/08/2020 09:30:00 AM EDT [facility] DRUG SCREEN QUALITATIVE VANCOMYCIN VANCOMYCIN, TROUGH Routine 02/08/2020 5:30 AM EDT 02/08/2020 09:30:00 AM EDT [facility] BASIC METABOLIC PANEL CALCIUM TOTAL BASIC METABOLIC PANEL Timed 02/08/2020 5:30 AM EDT 02/08/2020 09:30:00 AM EDT [facility] ECG ROUTINE ECG W/LEAST 12 [...] 5:32 PM EDT 02/07/2020 09:32:00 PM EDT [facility] GLUC BLD GLUC MNTR DEV CLEARED FDA SPEC HOME USE POCT GLUCOSE Routine 02/07/2020 11:59 AM EDT 02/07/2020 03:59:00 PM EDT [facility] THROMBOPLASTIN TIME PARTIAL PLASMA/WHOLE BLOOD APTT Routine 02/07/2020 10:36 AM EDT 02/07/2020 02:36:00 PM EDT [facility] PROTHROMBIN TIME PROTIME-INR Routine 02/07/2020 10:36 AM EDT 02/07/2020 02:36:00 PM EDT [facility] HEMOGLOBIN GLYCOSYLATED A1C HEMOGLOBIN A1C Routine 02/07/2020 10:35 AM EDT 02/07/2020 02:35:00 PM EDT [facility] CUL BACT XCPT URINE BLOOD/STOOL AEROBIC ISOL WOUND CULTURE Ro utine 02/07/2020 10:15 AM EDT 02/07/2020 02:15:00 PM EDT [facility] CUL BACT XCPT URINE BLOOD/STOOL AEROBIC ISOL WOUND CULTURE Ro utine 02/07/2020 10:15 AM EDT 02/07/2020 02:15:00 PM EDT [facility] CULTURE BACTERIAL ANY SOURCE ANAEROBIC ISO&ID ANAEROBIC CULTURE Routine 02/07/2020 10:15 AM EDT 02/07/2020 02:15:00 PM EDT [facility] CULTURE BACTERIAL ANY SOURCE ANAEROBIC ISO&ID ANAEROBIC CULTURE Routine 02/07/2020 10:15 AM EDT 02/07/2020 02:15:00 PM EDT [facility] GLUC BLD GLUC MNTR DEV CLEARED FDA SPEC HOME USE POCT GLUCOSE Routine 02/07/2020 8:41 AM EDT 02/07/2020 12:41:00 PM EDT [facility] BLOOD COUNT COMPLETE AUTOMATED CBC Routine 02/07/2020 5:48 A M EDT 02/07/2020 09:48:00 AM EDT [facility] BASIC METABOLIC PANEL CALCIUM TOTAL BASIC METABOLIC PANEL Timed 02/07/2020 5:48 AM EDT 02/07/2020 09:48:00 AM EDT [facility] MRI LOWER EXTREM OTH/THN JT W/O CONTR MATRL MRI LOW E XT NO JNT WO CONTRAST RIGHT Routine 02/06/2020 8:59 PM EDT 02/07/2020 12:59 :42 AM EDT [facility] MRI LOWER EXTREM OTH/THN JT W/O CONTR MATRL 02/07/2020 12:00:00 AM EDT [facility] ([facility]) GLUC BLD GLUC MNTR DEV CLEARED FDA SPEC HOME USE POCT GLUCOSE Routine 02/06/2020 6:45 PM EDT 02/06/2020 10:45:00 PM EDT [facility] GLUC BLD GLUC MNTR DEV CLEARED FDA SPEC HOME USE POCT GLUCOSE Routine 02/06/2020 12:20 PM EDT 02/06/2020 04:20:00 PM EDT [facility] GLUC BLD GLUC MNTR DEV CLEARED FDA SPEC HOME USE POCT GLUCOSE Routine 02/06/2020 9:00 AM EDT 02/06/2020 01:00:00 PM EDT [facility] BLOOD COUNT COMPLETE AUTOMATED CBC Routine 02/06/2020 6:24 A M EDT 02/06/2020 10:24:00 AM EDT [facility] BASIC METABOLIC PANEL CALCIUM TOTAL BASIC METABOLIC PANEL Routi ne 02/06/2020 6:24 AM EDT 02/06/2020 10:24:00 AM EDT [facility] GLUC BLD GLUC MNTR DEV CLEARED FDA SPEC HOME USE POCT GLUCOSE Routine 02/06/2020 12:10 AM EDT 02/06/2020 04:10:00 AM EDT [facility] POC ARTERIAL BLOOD GAS W IDANIAAMRBOCIO POC ARTERIAL BLOOD GAS W ALISON R outine 02/05/2020 9:08 PM EDT 02/06/2020 01:08:00 AM EDT [facility] CREATION, BYPASS, ARTERIAL, FEMORAL TO POPLITEAL, USIN G GRAFT CREATION, BYPASS, ARTERIAL, FEMORAL TO POPLITEAL, USING GRAFT 02/05/2020 7:3 6 PM EDT claudication 02/05/2020 11:36:00 PM EDT - 02/06/2020 04:24:00 AM EDT [facility] GLUC BLD GLUC MNTR DEV CLEARED FDA SPEC HOME USE POCT GLUCOSE Routine 02/05/2020 6:58 PM EDT 02/05/2020 10:58:00 PM EDT [facility] GLUC BLD GLUC MNTR DEV CLEARED FDA SPEC HOME USE POCT GLUCOSE Routine 02/05/2020 6:36 PM EDT 02/05/2020 10:36:00 PM EDT [facility] THROMBOPLASTIN TIME PARTIAL PLASMA/WHOLE BLOOD APTT STAT 02/05/2020 4:11 PM EDT 02/05/2020 08:11:00 PM EDT [facility] 2019 NCOV AMPLIFIED 2019 NCOV AMPLIFIED STAT 02/05/2020 2:45 PM EDT 02/05/2020 06:45:00 PM EDT [facility] GLUC BLD GLUC MNTR DEV CLEARED FDA SPEC HOME USE POCT GLUCOSE Routine 02/05/2020 1:46 PM EDT 02/05/2020 05:46:00 PM EDT [facility] XR CHEST PORTABLE XR CHEST PORTABLE Routine 02/05/2020 10:47 AM EDT 02/05/2020 02:47:59 PM EDT [facility] ECG ROUTINE ECG W/LEAST 12 LDS W/I&R ECG 12-LEAD Routine 02/05/2020 10:05 AM EDT 02/05/2020 02:05:29 PM EDT [facility] LEVEL IV SURG PATHOLOGY GROSS&MICROSCOPIC EXAM [facility] HISTOLOGY Routine 02/05/2020 9:56 AM EDT 02/05/2020 01:56:00 PM EDT [facility] CTA ABDL AORTA&BI ILIOFEM W/CONTRAST&POSTPROCESS CT A NGIOGRAM ABDOMINAL AORTA AND BILATERAL RUNOFF STAT 02/05/2020 9:25 AM EDT 02/05/2020 01:25:39 PM EDT [facility] GLUC BLD GLUC MNTR DEV CLEARED FDA SPEC HOME USE POCT GLUCOSE Routine 02/05/2020 8:41 AM EDT 02/05/2020 12:41:00 PM EDT [facility] CULTURE BACTERIAL BLOOD AEROBIC W/ID ISOLATES BLOOD CULTURE R outine 02/05/2020 6:09 AM EDT 02/05/2020 10:09:00 AM EDT [facility] CULTURE BACTERIAL BLOOD AEROBIC W/ID ISOLATES BLOOD CULTURE R outine 02/05/2020 6:09 AM EDT 02/05/2020 10:09:00 AM EDT [facility] THROMBOPLASTIN TIME PARTIAL PLASMA/WHOLE BLOOD APTT Routine 02/05/2020 6:09 AM EDT 02/05/2020 10:09:00 AM EDT [facility] PROTHROMBIN TIME PROTIME-INR Routine 02/05/2020 6:09 AM EDT 02/05/2020 10:09:00 AM EDT [facility] BLOOD COUNT COMPLETE AUTOMATED CBC Routine 02/05/2020 6:09 A M EDT 02/05/2020 10:09:00 AM EDT [facility] BLOOD TYPING ABO TYPE AND SCREEN Routine 02/05/2020 6:09 AM EDT 02/05/2020 10:09:00 AM EDT [facility] COMPREHENSIVE METABOLIC PANEL COMPREHENSIVE METABOLIC PANEL Rou jw 02/05/2020 6:09 AM EDT 02/05/2020 10:09:00 AM EDT [facility] Bypass Graft Other Than Vein [...] 12:00:00 AM EDT [facility] ([facility]) ECG ROUTINE ECG W/LEAST 12 LDS W/I&R 02/05/2020 12:00: 00 AM EDT [facility] ([facility]) FINE NEEDLE ASPIRATION W/O IMAGING GUIDANCE 02/02/2020 12:00:00 AM EDT [email or web address] ([facility]) FINE NEEDLE ASPIRATION W/O IMAGING GUIDANCE 01/26/2020 12:00:00 AM EDT [email or web address] ([facility]) FINE NEEDLE ASPIRATION W/O IMAGING GUIDANCE 01/17/2020 12:00:00 AM EDT [email or web address] ([facility]) DEBRIDEMENT BONE MUSCLE &/FASCIA 20 SQ CM/< [...] Electrocardiogram Complete 09/27/2019 12:00:00 AM EDT [facility] ([facility]) DEBRIDEMENT SUBCUTANEOUS TISSUE 20 SQ CM/< 09/25/2019 12:00:00 AM EDT [facility] ([facility] REVSC OPN/PRQ FEM/POP W/STNT/ANGIOP VSL 09/19/2019 12:00:00 AM EDT [facility] ([facility]) REVSC OPN/PRQ TIB/DONALD W/ANGIOPLASTY UNI 09/19/2019 12 :00:00 AM EDT [facility] ([facility]) Moderate Sedation Services; Same Phys Intl 15 Mins; PT >= 5 Years 09/19/2019 12:00:00 AM EDT [facility] ([facility]) DEBRIDEMENT SUBCUTANEOUS TISSUE 20 SQ CM/< 08/15/2019 12:00:00 AM EDT [facility] ([facility] DEBRIDEMENT SUBCUTANEOUS TISSUE 20 SQ CM/< 08/08/2019 12:00:00 AM EDT [facility] ([facility] REVSC OPN/PRQ FEM/POP W/STNT/ANGIOP VSL 07/26/2019 12:00:00 AM EDT [facility] ([facility]) Aortography Abdominal & Bilat Iliofemoral LWR Extremity Cath 07/26/2019 12:00:00 AM EDT [facility] ([facility]) Angiography Selective, Each Addtl Vessel Studied After Exam 07/26/2019 12:00:00 AM EDT [facility] ([facility]) Moderate Sedation Services; Same Phys Intl 15 Mins; PT >= 5 Years 07/26/2019 12:00:00 AM EDT [facility] ([facility]) DEBRIDEMENT SUBCUTANEOUS TISSUE 20 SQ CM/< 06/08/2019 12:00:00 AM EST [facility] DEBRIDEMENT SUBCUTANEOUS TISSUE 20 SQ CM/< 05/25/2019 12:00:00 AM EST [facility] ([facility] Revascularization,Endovascular,Transluminal Stent Placement 05/17/2019 12:00:00 AM EST [facility] ([facility], ) Revascularization,Endovascular,Transluminal Angioplasty 05/17/2019 12:00:00 AM EST [facility] ([facility], ) REVSC OPN/PRQ TIB/DONALD W/ANGIOPLASTY UNI 05/17/2019 12 :00:00 AM EST [facility] ([facility], ) Angiography Extremity Unilateral 05/17/2019 12:00:00 A M EST [facility] ([facility]) Angiography Selective, Each Addtl Vessel Studied After Exam 05/17/2019 12:00:00 AM EST [facility] ([facility], ) Moderate Sedation Services; Same Phys Intl 15 Mins; PT >= 5 Years 05/17/2019 12:00:00 AM EST [facility] ([facility], ) PARING/CUTTING BENIGN HYPERKERATOTIC LESION 2-4 2019 12:00:00 AM EST [facility] ([facility] DEBRIDEMENT NAIL ANY METHOD 6/> 04/28/2019 12:00:00 AM EST [facility] ([facility] Results ID Date Data Source [id number] 04/27/2020 06:31:42 AM EST [facility] NT INFORMATIONPatient MRN Name Date of Age Gend*PT [id number] Tatianna Soto 1965 55 years F IPPT Location Admission Date/Time Visit ID Attending [id number] 04/10/20 2317 --- --- EPI ID CSN Admitting Provider [id number] Brittani Birmingham MD([id number]) Attestation signed by Brittani Birmingham MD at 04/27/2020 6:31 AMI saw and evaluated the patient and reviewed pa's note. I agree with thehistory, physical and medical decision making with the following additions,exceptions, and/or observations:Signature: TIMA Lawrenceate: April 27, 2020Time: 6:31 AM --Surgical Discharge SummaryTatianna SotoMRN: [id number] date: 04/10/2020Admitting Physician: TIMA Lawrenceischarge date and [...] Get Your MedicationsThese medications were sent to [facility] [id number] - [place], [place] [address] [id number] amoxicillin-clavulanate 875-125 MG per tabletIndication for Admission: R groin infectionAdmission H&P: 54 years White or female, well known patient to thevascular surgery service with a past medical history significant for PVD andischemia, CAD (s/p quintuple bypass graft 01/16/2016), HTN, DM, COPD,hyperlipidemia, PAD, HERMAN and heavy smoker) has been transferred from [facility] ED with a right groin infection. Patient claims she was made to go [facility] ED by her home care nurses as she was having extremely foul smellingpurulent drainage and pain in the groin. Patient is not a good historian, sheclaims that the redness may have been there for about a week and the foul smellfor about 3 days. 02/05/20: Right femoral endarterectomy, Iliac to profunda femoral bypass [id number] ringed PTFE and Jump graft from the [...] and home nursing care. She [facility] on 02/18/2020 for poorly healing ulcers and [...] and Wednesday. She was last seen by FORESTRY HUNTER (Karen Bar) in the cardiology office on [...] right posteriorly.Microbiology:Procedure Component Value Units Date/TimeWound culture [[id number]] Collected: 04/11/20 0050Order Status: Completed Specimen: Surgical Wound Updated: 04/14/20 0817 Specimen Description SURGICAL WOUND Special Requests NONE Gram Stain Result MANY (>25/LPF) WHITE BLOOD CELLSMODERATE (5 TO 10/OIF) GRAM POSITIVE COCCIRARE (<1/OIF) GRAM NEGATIVE RODS Culture Result -- MANY BETA HEMOLYTIC STREPTOCOCCI GROUP A ISOLATEDMANY STAPHYLOCOCCUS AUREUS(NOTE) PRELIMINARY CULTURE RESULT CALLED TO CAROLYN ON [facility] D4 AT 1147 ON04/12/20 52623. NOTE: BIOCHEMICAL IDENTIFICATION SYSTEMS WERE SET UP ON SUSPECTCOLONIES TO R/O PATHOGENS. Report Status 04/14/2020 FINAL Organism BETA HEMOLYTIC STREPTOCOCCI GROUP A ISOLATED Organism STAPHYLOCOCCUS AUREUSCulture & Susceptibility Beta hemolytic streptococci group a isolated Staphylococcus aureus SAIMA MICAmpicillin <=0.25 Tbxndgubx6Fbuqrhvlrfi 0.25 SensitiveCeftriaxone <=0.12 SensitiveClindamycin <=0.25 Sensitive 0.25 Gqtcwpaef7Sguhssnlho 0.5 SensitiveErythromycin <=0.12 Sensitive <=0.25 SensitiveLevofloxacin 0.5 SensitiveLinezolid 2 SensitiveMoxifloxacin 0.25 SensitiveOxacillin <=0.25 Yzqyzgycq6Xzu G (AMP, AMOX) <=0.06 Lrvluccmn5Rsrstbnvqlmr 0.5 Sensitive5 <=1 Zjvzjtcpd4Agxugpldloed + Sulfamethoxazole <=.5/9.5 SensitiveVancomycin <=0.12 Sensitive <=0.5 [...] aureusMANY STAPHYLOCOCCUS AUREUSMRSA nasal screen by PCR [[id number]] Collected: 04/11/20 0050Order Status: Completed Specimen: Nares Updated: 04/11/20 1101 SPECIMEN DESCRIPTION NARES 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 BY PCR Comment SEE NOTES Comment: RESULT(S) [facility] AND EMAILED TO [facility] IC AT [address] CE [id number] OB [id number].Narrative: NARES/GROIN/UMBILICAL FOR NICU PATIENTS ONLY [facility] COLLECTION MGR LOCKBlood Culture Peripheral x 1 Set (2 bottles aerobic and anaerobic) [[id number]]Collected: 04/11/20 0046Order Status: Completed Specimen: Peripheral Updated: 04/13/20 1153 Specimen Description PERIPHERAL 2 Special Requests NONE Culture Result NO GROWTH 2 DAYS Report Status PENDINGBlood Culture Peripheral x 1 Set (2 bottles aerobic and anaerobic) [[id number]]Collected: 04/11/20 0041Order Status: Completed Specimen: Peripheral Updated: [...] intact. No edema.Neuro: AAOx3, answers qustions appropriately, tour conductor strength equal b/l. No grossneurological deficits.Items needing [...] rce(s) Supporting Document(s) ID Date Data Source [id number] 04/15/2020 05:35:00 PM EST [facility] ([facility]) Name Value Range Interpretation Code Description Data Tisha rce(s) Supporting Document(s) Laboratory test finding (navigational concept) 113 mg/dL 70-99 [facility] ([facility]) PERFORMED BY [facility] CLINICAL STAFF ID Date Data Source [id number] 04/15/2020 04:09:00 PM EST [facility] ([facility]) Name Value Range Interpretation Code Description Data Tisha rce(s) Supporting Document(s) Sodium [Moles/volume] in Serum or Plasma 144 mmol/L 136-145 [facility] ([facility]) Potassium [Moles/volume] in Serum or Plasma 4.2 mmol/L 3.6-5.2 [facility] ([facility]) Chloride [Moles/volume] in Serum or Plasma 107 mmol/L 100-108 [facility] ([facility]) Urea nitrogen [Mass/volume] in Serum or [...] 246 mg/dL 70-99 [facility] ([facility]) Urea nitrogen/Creatinine [Mass Ratio] in Serum or Plasma 19.8 1 0.0-20.0 [facility] ([facility]) Calcium [Mass/volume] in Serum or Plasma 9.0 mg/dL 8.4-10.2 [facility]) Glomerular filtration rate/1.73 sq M pre dicted among blacks [Volume Rate/Area] in Serum or Plasma by Creatinine-based formula (MDRD) Laboratory test result [facility] ([facility]) Glomerular filtration rate/1.73 sq M pre dicted among non-blacks [Volume Rate/Area] in Serum or Plasma by Creatinine-based formula (MDRD) Laboratory test result [facility] ([facility]) Glomerular filtration rate/1.73 sq M pre dicted among non-blacks [Volume Rate/Area] in Serum or Plasma by Creatinine-based formula (MDRD) Laboratory test result [facility] ([facility]) -- NORMAL KIDNEY FUNCTION OR MILD DISEASE - GFR >OR= 60 CHRONIC KIDNEY DISEASE - GFR 15 - 59 RENAL FAILURE - GFR <15 Est. GFR calculation based on the MDRD study equation, which assumes a steady state for creatinine. Est. GFR should not be used for medication dosing. ID Date Data Source [id number] 04/15/2020 03:17:00 PM EST [facility] ([facility]) Name Value Range Interpretation Code Description Data Tisha rce(s) Supporting Document(s) Leukocytes [#/volume] in Blood by Automated count 8.0 10*3/uL 4.1-11. 0 [facility] ([facility]) Hemoglobin [Mass/volume] in Blood 12.8 g/dL 12.0-16.0 [facility] ([facility]) Erythrocytes [#/volume] in Blood by Automated count 4.62 10*6/uL 4.00 -5.40 [facility] ([facility]) Hematocrit [Volume Fraction] of Blood by Automated count 38.4 % 3 6.0-47.0 [facility] ([facility]) Erythrocyte mean corpuscular hemoglobin [Entitic mass] by Automated count 27.7 pg 27.0-32.0 [facility] ([facility]) Erythrocyte mean corpuscular volume [Entitic volume] by Auto mated count 83.1 fL 80.0-95.0 [facility] ([facility] ) Platelets [#/volume] in Blood by Automated count 243 10*3/uL 150-450 [facility] ([facility]) Erythrocyte distribution width [Ratio] by Automated count 14.4 % 10.5-14.5 [facility] ([facility]) Platelet mean volume [Entitic volume] in Blood by Sandip-Vesna 9.3 fL 7.1-10.7 [facility] ([facility]) Erythrocyte mean corpuscular hemoglobin concentration [Mass/volume] by Automated count 33.4 g/dL 32.0-36.0 [facility] ([facility]) ID Date Data Source [id number] 04/15/2020 12:35:56 PM EST [facility] [place] Name Value Range Interpretation Code Description Data Tisha rce(s) Supporting Document(s) POC NOVA GLU 113 mg/dL (70-99) H [facility] [place] [facility] [place] PERFORMED BY [facility] CLINICAL STAFF ID Date Data Source [id number] 04/15/2020 08:43:54 AM EST [facility] Name Value Range Interpretation Code Description Data Tisha rce(s) Supporting Document(s) POC NOVA GLU 215 mg/dL (70-99) H [facility] [place] [facility] [place] [facility]FOR[facility] BY [facility] CLINICAL STAFF ID Date Data Source [id number] 04/15/2020 11:10:00 AM EST [facility] [place] Name Value Range Interpretation Code Description Data Tisha rce(s) Supporting Document(s) SODIUM 144 mmol/L (136-145) [facility] [place] POTASSIUM 4.2 mmol/L (3.6-5.2) [facility] [place] CHLORIDE 107 mmol/L (100-108) [facility] [place] CO2 29 mmol/L (22-31) [facility] ANION GAP 8 mmol/L (7-16) [facility] [place] UREA NITROGEN 19 mg/dL (7-24) [facility] CREATININE 0.96 mg/dL (0.60-1.00) [facility] BUN/CREAT RATIO 19.8 RATIO (10.0-20.0) [facility] GLUCOSE 246 mg/dL (70-99) H [facility] [place] CALCIUM 9.0 mg/dL (8.4-10.2) [facility] [place] GFR >60 ml/min/1.73m2 (>59) [facility] GFR ( AMER) >60 ml/min/1.73m2 (>59) [facility] GFR INTERPRETATION [facility] --NORMAL KIDNEY FUNCTION OR MILD DISEASE - GFR >OR= 60CHRONIC KIDNEY DISEASE - GFR 15 - 59RENAL FAILURE - GFR <15 Est. GFR calculation based on the MDRDstudy equation, which assumes a steadystate for creatinine. Est. GFR should notbe used for medication dosing. ID Date Data Source [id number] 04/15/2020 10:18:04 AM EST [facility] Name Value Range Interpretation Code Description Data Tisha rce(s) Supporting Document(s) WBC 8.0 10*3/uL (4.1-11.0) [facility] [place] [facility] [place] RBC 4.62 10*6/uL (4.00-5.40) [facility] [place] HGB 12.8 g/dL (12.0-16.0) [facility] [place] HCT 38.4 % (36.0-47.0) [facility] [place] MCV 83.1 fL (80.0-95.0) [facility] [place] MCH 27.7 pg (27.0-32.0) [facility] [place] MCHC 33.4 g/dL (32.0-36.0) [facility] [place] RDW 14.4 % (10.5-14.5) [facility] [place] [facility] PLT 243 10*3/uL (150-450) [facility] [place] MPV 9.3 fL (7.1-10.7) [facility] [place] ID Date Data Source [id number] 04/15/2020 06:25:02 AM EST [facility] Name Value Range Interpretation Code Description Data Tisha rce(s) Supporting Document(s) POC NOVA GLU 268 mg/dL (70-99) H [facility] [place] [facility] [place] [facility] BY [facility] CLINICAL STAFF ID Date Data Source [id number] 04/15/2020 06:24:57 AM EST [facility] [place] Name Value Range Interpretation Code Description Data Tisha rce(s) Supporting Document(s) POC NOVA GLU 208 mg/dL (70-99) H [facility] [place] [facility] [place] [facility] CLINICAL STAFF ID Date Data Source [id number] 04/14/2020 08:35:16 PM EST [facility] Name Value Range Interpretation Code Description Data Tisha rce(s) Supporting Document(s) POC NOVA GLU 153 mg/dL (70-99) H [facility] [place] [facility] [place] [facility] CLINICAL STAFF ID Date Data Source [id number] 04/14/2020 07:06:43 PM EST [facility] [place] Name Value Range Interpretation Code Description Data Tisha rce(s) Supporting Document(s) POC NOVA GLU 92 mg/dL (70-99) [facility] [place] [facility] CLINICAL STAFF ID Date Data Source [id number] 04/14/2020 01:18:00 PM EST [facility] ([facility]) Name Value Range Interpretation Code Description Data Tisha rce(s) Supporting Document(s) Special Requests Laboratory test result [facility] ([facility]) Specimen Description Laboratory test result [facility] ([facility]) Laboratory test finding (navigational concept) Laboratory test result [facility] ([facility]) Many Beta Hemolytic Streptococci Group A Isolatedmany Staphylococcus Aureus(Note) Preliminary Culture Result Called To Carolyn On [facility] D4 AT 1147 On 04/12/20 [id number]. Note: Biochemical Identification Systems Were Set Up On Suspect Colonies To R/O Pathogens. Report Status Laboratory test result [facility] ([facility]) Microscopic observation [Identifier] in Unspecified sp ecimen by Gram stain Laboratory test result [facility] ([facility]) Many (>25/LPF) White Blood Cellsmoderate (5 To 10/Oif) Gram Positive Coccirare (<1/Oif) Gram Negative Rods Organism Laboratory test result [facility] ([facility]) Organism Laboratory test result [facility] ([facility]) ID Date Data Source [id number] 04/14/2020 12:57:12 PM EST [facility] Name Value Range Interpretation Code Description Data Tisha rce(s) Supporting Document(s) POC NOVA GLU 245 mg/dL (70-99) H [facility] [place] [facility] [place] [facility] CLINICAL STAFF ID Date Data Source [id number] 04/14/2020 10:34:08 AM EST [facility] [place] Name Value Range Interpretation Code Description Data Tisha rce(s) Supporting Document(s) POC NOVA GLU 216 mg/dL (70-99) H [facility] [place] [facility] [place] [facility] BY [facility] CLINICAL STAFF ID Date Data Source [id number] 04/14/2020 10:05:33 AM EST [facility] Name Value Range Interpretation Code Description Data Tisha rce(s) Supporting Document(s) POC NOVA GLU 146 mg/dL (70-99) H [facility] [place] [facility] CLINICAL STAFF ID Date Data Source [id number] 04/14/2020 09:41:10 AM EST [facility] [place] Name Value Range Interpretation Code Description Data Tisha rce(s) Supporting Document(s) POC NOVA GLU 119 mg/dL (70-99) H [facility] [place] [facility] [place] [facility] CLINICAL STAFF ID Date Data Source [id number] 04/14/2020 08:44:06 AM EST [facility] [place] [facility] Name Value Range Interpretation Code Description Data Tisha rce(s) Supporting Document(s) POC NOVA GLU 42 mg/dL (70-99) LL [facility] [place] [facility] [place] [facility] CLINICAL STAFF ID Date Data Source [id number] 04/14/2020 09:37:31 AM EST [facility] [place] Name Value Range Interpretation Code Description Data Tisha rce(s) Supporting Document(s) SODIUM 145 mmol/L (136-145) [facility] [place] [facility] POTASSIUM 4.2 mmol/L (3.6-5.2) [facility] [place] CHLORIDE 105 mmol/L (100-108) [facility] [place] CO2 29 mmol/L (22-31) [facility] [place] ANION GAP 11 mmol/L (7-16) [facility] [place] UREA NITROGEN 17 mg/dL (7-24) [facility] [place] CREATININE 0.69 mg/dL (0.60-1.00) [facility] BUN/CREAT RATIO 24.6 RATIO (10.0-20.0) H [facility] GLUCOSE 39 mg/dL (70-99) LL [facility] [place] ALERTED CRITICAL RESULT LIOR([id number] )[place] [address] ON 720775 AT 0908 [place] [address] CALCIUM 8.8 mg/dL (8.4-10.2) [facility] [place] GFR >60 ml/min/1.73m2 (>59) [facility] [place] GFR ( AMER) >60 ml/min/1.73m2 (>59) [facility] [place] [facility] GFR INTERPRETATION [facility] --NORMAL KIDNEY FUNCTION OR MILD DISEASE - GFR >OR= 60CHRONIC KIDNEY DISEASE - GFR 15 - 59RENAL FAILURE - GFR <15 Est. GFR calculation based on the MDRDstudy equation, which assumes a steadystate for creatinine. Est. GFR should notbe used for medication dosing. ID Date Data Source [id number] 04/14/2020 07:54:48 AM EST [facility] Name Value Range Interpretation Code Description Data Tisha rce(s) Supporting Document(s) WBC 10.6 10*3/uL (4.1-11.0) [facility] [place] [facility] RBC 4.89 10*6/uL (4.00-5.40) [facility] [place] [facility] HGB 13.2 g/dL (12.0-16.0) [facility] [place] [facility] HCT 40.2 % (36.0-47.0) [facility] [place] [facility] MCV 82.4 fL (80.0-95.0) [facility] [place] [facility] MCH 26.9 pg (27.0-32.0) L [facility] [place] [facility] MCHC 32.7 g/dL (32.0-36.0) [facility] [place] [facility] RDW 14.5 % (10.5-14.5) [facility] [place] [facility] PLT 264 10*3/uL (150-450) [facility] [place] [facility] MPV 9.1 fL (7.1-10.7) [facility] [place] ID Date Data Source [id number] 04/13/2020 06:28:21 PM EST [facility] [place] [facility] Name Value Range Interpretation Code Description Data Tisha rce(s) Supporting Document(s) POC NOVA GLU 164 mg/dL (70-99) H [facility] [place] [facility] [place] [facility] CLINICAL STAFF ID Date Data Source [id number] 04/13/2020 03:34:00 PM EST [facility] ([facility]) Name Value Range Interpretation Code Description Data Tisha rce(s) Supporting Document(s) Vancomycin [Mass/volume] in Serum or Plasma --trough 14.9 ug/mL 10.0- 20.0 [facility] ([facility]) ID Date Data Source [id number] 04/13/2020 01:05:22 PM EST [facility] [place] [facility] Name Value Range Interpretation Code Description Data Tisha rce(s) Supporting Document(s) POC NOVA GLU 120 mg/dL (70-99) H [facility] [place] [facility] [place] [facility] CLINICAL STAFF ID Date Data Source [id number] 04/13/2020 09:06:17 AM EST [facility] [place] [facility] Name Value Range Interpretation Code Description Data Tisha rce(s) Supporting Document(s) POC NOVA GLU 97 mg/dL (70-99) [facility] [place] [facility] [place] [facility] CLINICAL STAFF ID Date Data Source [id number] 04/13/2020 10:34:51 AM EST [facility] [place] [facility] Name Value Range Interpretation Code Description Data Tisha rce(s) Supporting Document(s) VANCOMYCIN TROUGH 14.9 ug/mL (10.0-20.0) [facility] ID Date Data Source [id number] 04/13/2020 10:34:51 AM EST [facility] [place] [facility] Name Value Range Interpretation Code Description Data Tisha rce(s) Supporting Document(s) SODIUM 145 mmol/L (136-145) [facility] [place] [facility] POTASSIUM 4.4 mmol/L (3.6-5.2) [facility] [place] CHLORIDE 105 mmol/L (100-108) [facility] [place] [facility] CO2 29 mmol/L (22-31) [facility] [place] [facility] ANION GAP 11 mmol/L (7-16) [facility] [place] UREA NITROGEN 15 mg/dL (7-24) [facility] [place] [facility] CREATININE 0.68 mg/dL (0.60-1.00) [facility] [place] [facility] BUN/CREAT RATIO 22.1 RATIO (10.0-20.0) H [facility] GLUCOSE 94 mg/dL (70-99) [facility] [place] [facility] CALCIUM 8.9 mg/dL (8.4-10.2) [facility] [place] [facility] GFR >60 ml/min/1.73m2 (>59) [facility] [place] [facility] GFR ( AMER) >60 ml/min/1.73m2 (>59) [facility] [place] [facility] GFR INTERPRETATION [facility] --NORMAL KIDNEY FUNCTION OR MILD DISEASE - GFR >OR= 60CHRONIC KIDNEY DISEASE - GFR 15 - 59RENAL FAILURE - GFR <15 Est. GFR calculation based on the MDRDstudy equation, which assumes a steadystate for creatinine. Est. GFR should notbe used for medication dosing. ID Date Data Source [id number] 04/13/2020 10:02:33 AM EST [facility] [place] [facility] Name Value Range Interpretation Code Description Data Tisha rce(s) Supporting Document(s) WBC 8.1 10*3/uL (4.1-11.0) [facility] [place] [facility] [place] RBC 4.72 10*6/uL (4.00-5.40) [facility] [place] [facility] HGB 12.8 g/dL (12.0-16.0) [facility] [place] [facility] HCT 38.9 % (36.0-47.0) [facility] [place] [facility] MCV 82.4 fL (80.0-95.0) [facility] [place] [facility] MCH 27.1 pg (27.0-32.0) [facility] [place] [facility] MCHC 32.9 g/dL (32.0-36.0) [facility] [place] [facility] RDW 14.3 % (10.5-14.5) [facility] [place] [facility] PLT 235 10*3/uL (150-450) [facility] [place] [facility] MPV 9.0 fL (7.1-10.7) [facility] [place] [facility] ID Date Data Source [id number] 04/12/2020 09:17:53 PM EST [facility] [place] [facility] Name Value Range Interpretation Code Description Data Tisha rce(s) Supporting Document(s) POC NOVA GLU 218 mg/dL (70-99) H [facility] [place] [facility] [place] [facility] CLINICAL STAFF ID Date Data Source [id number] 04/12/2020 08:29:50 PM EST [facility] [place] [facility] Name Value Range Interpretation Code Description Data Tisha rce(s) Supporting Document(s) POC NOVA GLU 231 mg/dL (70-99) H [facility] [place] [facility] [place] [facility] CLINICAL STAFF ID Date Data Source [id number] 04/12/2020 06:17:48 PM EST [facility] [place] [facility] Name Value Range Interpretation Code Description Data Tisha rce(s) Supporting Document(s) POC NOVA GLU 264 mg/dL (70-99) H [facility] [place] [facility] [place] [facility] CLINICAL STAFF ID Date Data Source [id number] 04/12/2020 02:41:17 PM EST [facility] [place] [facility] Name Value Range Interpretation Code Description Data Tisha rce(s) Supporting Document(s) POC NOVA GLU 182 mg/dL (70-99) H [facility] [place] [facility] [place] [facility] CLINICAL STAFF ID Date Data Source [id number] 04/12/2020 02:13:49 PM EST [facility] [place] [facility] Name Value Range Interpretation Code Description Data Tisha rce(s) Supporting Document(s) POC NOVA GLU 148 mg/dL (70-99) H [facility] [place] [facility] [place] [facility] CLINICAL STAFF ID Date Data Source [id number] 04/12/2020 01:54:14 PM EST [facility] [place] [facility] Name Value Range Interpretation Code Description Data Tisha rce(s) Supporting Document(s) POC NOVA GLU 62 mg/dL (70-99) L [facility] [place] [facility] [place] [facility] CLINICAL STAFF ID Date Data Source [id number] 04/12/2020 01:44:14 PM EST [facility] [place] [facility] Name Value Range Interpretation Code Description Data Tisha rce(s) Supporting Document(s) POC NOVA GLU 43 mg/dL (70-99) LL [facility] [place] [facility] [place] [facility] CLINICAL STAFF ID Date Data Source [id number] 04/12/2020 09:17:43 AM EST [facility] [place] [facility] Name Value Range Interpretation Code Description Data Tisha rce(s) Supporting Document(s) POC NOVA GLU 101 mg/dL (70-99) H [facility] [place] [facility] [place] [facility] CLINICAL STAFF ID Date Data Source [id number] 04/12/2020 07:42:40 AM EST [facility] [place] [facility] Name Value Range Interpretation Code Description Data Tisha rce(s) Supporting Document(s) SODIUM 144 mmol/L (136-145) [facility] [place] [facility] POTASSIUM 4.1 mmol/L (3.6-5.2) [facility] [place] [facility] CHLORIDE 107 mmol/L (100-108) [facility] [place] [facility] CO2 27 mmol/L (22-31) [facility] [place] [facility] ANION GAP 10 mmol/L (7-16) [facility] [place] [facility] UREA NITROGEN 18 mg/dL (7-24) [facility] [place] [facility] CREATININE 0.80 mg/dL (0.60-1.00) [facility] [place] [facility] BUN/CREAT RATIO 22.5 RATIO (10.0-20.0) H [facility] GLUCOSE 83 mg/dL (70-99) [facility] [place] [facility] CALCIUM 8.9 mg/dL (8.4-10.2) [facility] [place] [facility] GFR >60 ml/min/1.73m2 (>59) [facility] [place] [facility] GFR ( AMER) >60 ml/min/1.73m2 (>59) [facility] [place] [facility] GFR INTERPRETATION [facility] --NORMAL KIDNEY FUNCTION OR MILD DISEASE - GFR >OR= 60CHRONIC KIDNEY DISEASE - GFR 15 - 59RENAL FAILURE - GFR <15 Est. GFR calculation based on the MDRDstudy equation, which assumes a steadystate for creatinine. Est. GFR should notbe used for medication dosing. ID Date Data Source [id number] 04/12/2020 07:17:18 AM EST [facility] [place] [facility] Name Value Range Interpretation Code Description Data Tisha rce(s) Supporting Document(s) WBC 12.1 10*3/uL (4.1-11.0) H [facility] [place] [facility] RBC 4.62 10*6/uL (4.00-5.40) [facility] [place] [facility] HGB 12.6 g/dL (12.0-16.0) [facility] [place] [facility] HCT 38.0 % (36.0-47.0) [facility] [place] [facility] MCV 82.2 fL (80.0-95.0) [facility] [place] [facility] MCH 27.2 pg (27.0-32.0) [facility] [place] [facility] MCHC 33.0 g/dL (32.0-36.0) [facility] [place] [facility] RDW 14.4 % (10.5-14.5) [facility] [place] [facility] PLT 231 10*3/uL (150-450) [facility] [place] [facility] MPV 9.0 fL (7.1-10.7) [facility] [place] [facility] ID Date Data Source [id number] 04/11/2020 08:57:00 PM EST [facility] ([facility]) Name Value Range Interpretation Code Description Data Tisha rce(s) Supporting Document(s) Vancomycin [Mass/volume] in Serum or Plasma 28.3 ug/mL [facility] ([facility]) THERAPEUTIC RANGE IS ONLY AVAILABLE FOR PEAK AND TROUGH SPECIMENS. RANDOM LEVEL RESULTS MUST BE INTERPRETED BY THE PHYSICIAN. ID Date Data Source [id number] 04/12/2020 08:27:39 AM EST [facility] [place] [facility] Name Value Range Interpretation Code Description Data Tisha rce(s) Supporting Document(s) POC NOVA GLU 212 mg/dL (70-99) H [facility] [place] [facility] [place] [facility] CLINICAL STAFF ID Date Data Source [id number] 04/11/2020 06:20:28 PM EST [facility] [place] [facility] Name Value Range Interpretation Code Description Data Tisha rce(s) Supporting Document(s) POC NOVA GLU 251 mg/dL (70-99) H [facility] [place] [facility] [place] [facility] CLINICAL STAFF ID Date Data Source [id number] 04/11/2020 04:05:00 PM EST [facility] ([facility]) Name Value Range Interpretation Code Description Data Tisha rce(s) Supporting Document(s) MRSA by PCR Laboratory test result MEDEN T ([facility]) Specimen Description Laboratory test result MEDENT ([facility]) Laboratory comment [Text] in Report Narrative Laboratory test result MEDENT ([facility]) RESULT(S) CALLED TO AND READ BACK BY MILLY SUNSH[facility] D4 AND EMAILED TO [facility] IC AT 2076 QD [id number] WU [id number]. ID Date Data Source [id number] 04/11/2020 01:34:14 PM EST [address] [id number] Name: Tatianna MccarthyB: 1965Sex: FOrdering Provider: BRITTANI Shook Prov: BRITTANI Mclean Provider: Procedure Performed: CT ANGIOGRAM ABDOMINAL AORTA AND BILATERAL RUNOFFExam Date: 04/11/2020 09:11MRN: [id number] Number: [id number] Class: : CT angiogram of the abdominal [...] adjacent right groin. Prior stent within the [place] superficial femoral artery which is occluded. Femoral [...] Code Description Data Tihsa rce(s) Supporting Document(s) ID Date Data Source [id number] 04/11/2020 12:28:51 PM EST [facility] Name Value Range Interpretation Code Description Data Tisha rce(s) Supporting Document(s) POC NOVA GLU 182 mg/dL (70-99) H [facility] PERFORMED BY [facility] CLINICAL STAFF ID Date Data Source [id number] 04/11/2020 11:53:52 AM EST [facility] Name Value Range Interpretation Code Description Data Tisha rce(s) Supporting Document(s) POC NOVA GLU 93 mg/dL (70-99) [facility] BY [facility] CLINICAL STAFF ID Date Data Source [id number] 04/11/2020 11:40:21 AM EST [facility] Name Value Range Interpretation Code Description Data Tisha rce(s) Supporting Document(s) POC NOVA GLU 57 mg/dL (70-99) L [facility] CLINICAL STAFF ID Date Data Source [id number] 04/11/2020 11:24:52 AM EST [facility] Name Value Range Interpretation Code Description Data Tisha rce(s) Supporting Document(s) POC NOVA GLU 48 mg/dL (70-99) LL [facility] BY [facility] CLINICAL STAFF ID Date Data Source [id number] 04/11/2020 08:37:03 AM EST [facility] Name Value Range Interpretation Code Description Data Tisha rce(s) Supporting Document(s) EKG [facility] AILXVs6sDhJXCrKtv5SxMvYkJTUqKL7fikr2Q7A1fDVlW3XvnKGle5qfY4LqN6IeERBdZZJZBE9WjULy jb2 [file] second vp hr assessment+wzTOAuD04RT2rJto40nGpc6RYilv7TnBLFuQLfptMgNsA7zkLXOT1+PY8Th33FoCn3yaccGZ16cxj [file] QQbWRBlQtMqAslmGkIIDtQwcqGVsUpQUJeWQckjxfW FmpXFdIyhxlTEpoWRMh/SdYGxxoWUVMHvnoHduxC4rREKJFNkISTUgNjDdVezgTNByZaxsWMjonCJkkB Zvqm24VltR4Q9uvRcBnn9ySl4uNJCtwDG1mORV7xYvsgKLASjBNWZYuOTkfeKdgfWICPqSwrXvLXvSxk KU2WQWsWK4CW0BaNYlhKizKMAGS7XTXZSypoPxCTAi wybsREoVrS0sZFnRMpUJzdrXhomFmfyMvOcI0hF9zyPKuER4ISn7jgUDxKmEkTbzN3e8YA1KoJAz7h7C X4Lk4Ygr08Qe01GPPgsGCiYtfBP/NwziBb6/fBQPiQmfEqiKi4DaUE0DjKw7+4OoCzU6lrBP1/HHyTfp CX9H2gD+x0tKfRG4pCoP39LkxkOC/+pD4gX+1WTEC/ o1HAwToVnPU/TcrNv0xf90uuhxXJP2DvMG68+Yiyrp2SDC62hsWl9YM/n7+uc0EKFkD7+/2X/wRUoIHo GrcBRdbpvWCg5Gj+LNMQmUU38TZhVKqypjIdFhs6DjhVUU2v5GqBfE3JGKMEiuWyFWMhVWZ7IsLSHeMj HquRT6JoSuDDWubYW79Y0VuFKryyk6EMlKuTWUcoFo G07Ezv8zlE8cmR7nyyNXekJC5dG4nM5LOPAJ/a/LJ97T7/ue/qk64QeK/Oe///Kq3Z44q8++sp3TAuUm Bb/1+bEuA5VDtRLdNGZuiAyeSNrSbPedOjnl7vaKljf3LuUrvd5Wmizl01Uxiwl0pcRdHbe6fiq0rgNh Ibq4eyc6ssFj3WOad3i5Pmyu2n5Gsaf3G8Npsp0Aso vzg6cBiagr6yysg0dDehhk5skwe1pMfkB/rzE41JXtBI+E1wv/lw/Q8d4qtqj7FUrhTY9Y3ui+Q1My2C x4WkznnYciUnmF9FekCvdU7ykkO154difN420tfzQ8e3Xjfu8pxBtcWeSe3fJTg7QoIoJf4sXAa4CyNg Vx9UofjkI6ofbdFA6ihasX01gsMsV8qhZTdMjHAbNa QD8GwSnDEwGiGQ2BiLzMMqBnO416ia6hvzECnM4kTS7fmGZQ52TpUU/zFGCc0NkgX1C1uyMMk9TzxrGJ MYCj4TizugZc9apHpoq4TeOvuc6Zgtjf29Dtymv91iGRu1ZxGuSk4lWIy8NpZeLj0vAIc9Mag8i1Melu 9l8Mqza2K8Awls2AplnuH9LaRT4XqKfXOvIaHQ6UdC nJGuRdAH4UygiBAHsgQU6EP8JUD//Xv/kcndcco63nOmsa2W+NxEaAlBxpm2n3tF3ZnRezVF1QI8cpW/ rS7V2iz3VvP6Ahhg+fnCedxxJq8ig1Pk0yRp+C/xUiv7H4c1wpSbouxGR/oL+jI/8o/tX0LNT1Z/Kjvw L9WWD11h1BQe+vGV0o266z50jKCh9wwc1/fg/dH4y+ /AY+3l+3xuWvRXVbhn/p289H/oAQ66IW/1VQaHv4D0ZqBRiG+Je+tKnFA9pfp8OPq7/8YcWLC72/wXv4 l940+P/6+dhW1RcTN/vEHv+pVbZm/l9/d/5Xl8Xtc2Pkx2/+E/y//tFb18el8aPXI37cq445/Z3R5k+d giCtRg0vdB8s3ftN280c1/L+twYhjmHsYs24FMz/cS 4Pf/3xupwdR3D9/QIjP4PguVy/vxL1+v8b/8WS+r8cVuf/tfz/zbD/vyfDUmH/f0M+y//fDBvSrfJLaw b1y85iroxRrdMV/D6eLcI+rh5G9Eemx8egfsSS/o3hzG22OuCN+Q/3MVKb1xgC27L/v8j3ailBn061yy 49wGcifSId/d0L/TH8Ukg0d1Ui5Hesvj3FHlT6E8Mi +Ogx5Jt4sju+Wrdppgr1N16bQeysh824Oo5lM/qrC+mC/Ph/Dw23AN02QuEL+mSPdb54tl6v4cnDfMw9 /dz8H/yGU3Y46a+ke39j/j1g3t93inPYRLEwm30Pdz/7OTC00bsZhx79eBDD/D5dMDmYbqSeOAOL9hj/ daSPar+Rbp5K0QX/hQCdkVX9ZBrmWvBa61ofXGl1zg rc9zBf4oa2q8qSI5QM8c56u719T5d9B/n7zNwT/XnmC9f+648zX/pE/sIb/jIz12d/fXnMsgMPb666n9 96izw+mm7X3Co4Weos/iNqe4w0y5+xR/afyYp7zSHXim5gT5nUdktp5T5nyP/7Uebx/Si83ji+uuGF9I C7q024YbpnF+lff2/46++WDD+c4K8vf/joisIX6t9F /vRS9/Ed7eT9oW/r+RjWrX2v/7G0QGwSyaH+C+ny8Iw/t/zSS616yg/19tvf/r0gz0OVq8JS+xvaZcdX L1x8Al/bcTUPsLLXcq57Yz1/2hUySB6nkRPXCh+Paul/+Tfz0TnqjLn/us6oT306YQZO++ntv3ik2nLRJ bkr1Jb974qFe+GyuhIzYhnJWY3AkfYP/oXzpE/kX+C osJ7Jkrv6gdz0e9drh38wn67E/0blns7rwbkzGfn7kWO0Ru+OrHBtS+DzjDr37wzSD0Gd0Ap+O16gIFv x6npr2SO7FiNr+ddPuEa93y83i+KhX409T9i5/xprp+Cpwvj+K/OFhDzu+sz5EPo2M5meYu/x2guKfqn RXHzS0I42Bpr8qDLkeR99pPO7e/X4fKHTfuf3e3yT9 bjk0fG6/3fFVynBjPDu+enGJs5h9auwYyMtOA8D3hjgSzDrpo7T+9ict1edavaC/v6C66hj/M4x0rf/d 8dUti/26futyhG7Sjd2qPI/PC6tA5wXZ40wF50wRSo+L1Pf1X2uV59K03/jqpm/kx3rl+CrnneOrXPfO qXnk+Rvr4WDTxV21e//r+EcVodFjpr5v3wJB/dHx1V oZ/tKTj59/O410ldlxDgi+4oUYs1qk6oGl7702GcB//8bnU/Gna8uHA4/9tl+fXx++2ju+Dk01vqtS7m 8x7sBg/oxxW/zbcy97WKqNK7Sod0Pmc3/a/cNKh8LHl0IJE1G/pMj9xr41673OXw1+evEnnxHhN6/97W LOR3+6mP+pv1zM/8UfLua+7O8Wcx/0B9ylaN2jANOF b/iTxZduyO//b+HDeKETxjBYDVi2f6Jp5UUvE+MkcM6hdFX/BnrsUJGiQseFwxGlzL9VJ/ob+OqGK/9A vqNxXpa252afWm4HOQv05Q+B/ga+yvBC+gIfAX/0N/DVDYO/Gy1dWVNKYywx0i7Dn5Eiov3N/kJ/NSf+ 34n/icdquHD9OBd9S6csc+L/RPaJGVNlm0sOqnx4eS a+pzW2enqvha899t5K/D2X9manRdTu3X3Pgo8m7qHkuzp+KuQZ+dcpMl6B/Loxw8WgxTh9+OD/XejvUu Q/4S0KmlSk9jzgWwAG+ivor6C/vs380LPTD5EiaEdq3Y7U+p2w5SeYSq/4m8Lcg/xJYe4j/oKeap5X+H cDk85Fgu0qSb84DOklOfozI24tzp++YqHr4lW0wAbl 9K7hqXU/Ap/PC3MA5m8yc6IJfd0SNlb8K90MiQ2/vq/LvDlVWvfffaOhcu2uFkmYt6HiHH20Hl4Oq03A KlUSuqnJ3a07SoH3lwMya8urBl2H/bY5kQkRC92v9Ne2hHOpGMO/A19l/mK4CjHIfwx0K/kX8i/kR38D X2W9G+kb6Qo+WvI/6K/jq5T/VC2sJ0T14BqkJ/gqw+ of7Nnldo47uD//r02ko7+G/pogvyA//l/byI/d1Lyk2IklmGD/yc5bW3y0/a8g2bzdsm+9Pz7+8O+FR6 t4O3qllVSinBk5yoaC8BK1Sviq4v4B1/4YZ27zh+V2xpfzL+i4NyYqhAsyy64jY114n+1Y58we1fl+nO +DH4Eqz78/5bvt7/X/+kO+HLf+ji/Ygf7QL4+n/oov Mao/4rrnO5nnusfbwW/X199ozc29wC60N8jq4J/7Hkr7f6C/3baN7uLdb4M81Q7Sjw65Mg5BhXCic+Pi Oj1/zGul9wnu2+/92xN70x6/4RlAJ4JT/b3eC5+Sj+OrOL/8J77Yq2ijnl4r5hHO7jV8tF4+D4Y84/tg z3C1x/HVLTuRvpB/RVqPw1W5uf/r/7XjqxdGfgUfBX /0N/INyNC2gfSg7Lt9n+cq/nJyoh3K+D64Qn/KV0fbRC9J6cL/Q3+V+Jrwo12puBHg+Gh0koSnfaYjai lgAj0859b7aU/hVbjmkeOrzO/4Ktvg+GxRuANbASB01kuchlV09O4Oto2++J611vGWF//UXQW1Me7z/e Fkkoo80B52dApml2uKIL/004Hx52HsC6y3956g8bS6 LvYnd/mN2F/c8EouW4vsfpq79OfJ2H5w7dooPKIe+3EFY54yWP/HV/NE/q+/T2Usx5xm1lmz1m86uoRI dJ+/goJOL8kpxQp+ozSK8BHA3Z07h/H/Ud9M1dYgHMAkNj/Y+W14vmNwkra9gqFu+JbiQR0I9J58+r6/ Vg6QWNUkyi9R/VsdEcGSlebJr7aBh2zj5o7d/irGc+ TesRVHrBvzSPe5BSLF+Hggeir1Ur9PzNOoqaoQ4mD8Tigy87f7L/LNeyM0xE0UbdhagMU9MigcG37mqv jvMfDB+lp1Uhzu4Z/gqxsuPob+Gh4IKLLGKKb+Fh4gyWuGnd6x/p2Ij11wGcM5uV6tsDiB+EkK5bvOpQ Ct2XUJH8wqdro/fkmr/kobSK//I1plnlGbkYRQGqfq X/hKWuFJaaWPlabgo+BzwOeg/oTrwrFHaI94BOS+dg7B8lPp+ljpA+zMuzO9SjstLtvW0NL+Co3u6mzr 2EijNb6Pjur/7LcqVYn87ro8w3sxQ3/1auJXLzlML1bvR/3F2+0ZBVbh258znH9GXebZswQAD8yr01NW czqgfp1i/2M3IpaZi586AlA2Lve2vpI0T2wp045Cvl s7jgyXxpS/E05TRyYcxwL+EskWxptv8E/gg/5O9HfW/AX08H37b+L/nXX+uRN1ngN/P90plmroVFU/C/ /vvk8LMje06G2y/T2M18zalgymw53gS/XUg3gnpcP2WDb8AqglkJ/IgX6qSH+11mVN3Z/aaS6dl0Yo0m +kL/JOyeQ3FpCWEcGd2tN/AauswX9t4x9296nxc/Q5 skufIxvjeaO/G//vxnje+W909S2F+F14wrPB/NX2RtzeS/XYSq0GFS8r+yC9zr+X23NX90Xsce8Yat/d mj5w4U7eIe9FtGR2WYmy5+u5t8p8TpOTpuY91ype/IZyVnuJ1smSRuM1CwWFOjS6LjE0qWCitO/k1Pdf OXU+qjMQSvLW7HJ6MN7HKU5sUQ+V7VY1ZH8CpcJ5CZ S4JudubYJotGJ/ga/zNXzcsF1WwBMeugYSfkVDO3n1DbAdEqoDn8e+Ii4K6EE3bsA7YmG2jPo+X8N4Ns xfU+Q/4I/lrIhbk09m466+/+2F181099xncQ/0uC41YpMA/3cKB8RuNe+85agj5CG7XSb46kciR/go8h +k1/sw9Eeindvbj9m96nyz+G9M5L34xJ5rmua98r4+ 6x55ragpykyQezCn+Vx9BveIwXMcTWo3wsmF0/COlRGaa3bM/q+/Pdrv+Kpnnq+/bUbbvvOv+Tjf3c+/ 2ebv/KsS/Q7j6ra09bx9AV97fZ47v4eUAlon+GpkHj//Bn/UD4MM0qA/pe1LOv3JRT2r4bth/jq+WpJh ue+7tjJlxNAj6+Aetf/eej804W6fDw5Jxw67wT/H98 HIg/tXG/ev9sT/K94ED6c1c1B5Z+yRfxb/+D6Y4bh/xJXgUfJS5JlXx4ZBdx/um+15kI7+pqkA2LBEd8 F7lK1lFgPK64QEGm6GEldcHABy/S8az9c6CI8tZYTxRI+oF/3Y60H8fVdagej8dg4twbXegb+z580fbW 4K+gowM3Sb+bvjj0M08u4gsssoy5/5fTDCG+nor6C/ okhHf+UgHf+a3E6e2skc58t8z0baWg1f8S76fl0e/55IR3/8Asr2ptCanuB8nv78rn/dW5G/7m/sXfc3 5y4hx7oc8yt730m3zu+6ms2hyysZHvrLM6SQ6uZEH99x7x4s9p9Kp/fuDCN/fe/2ZfSFN/Hr6WtSw4g/ kL/iJ2n2wT/uM+yD/o38z2VXJ7q1630uWF9ua+5T37 g6hKl5WH7J/t+R0mqXdLJB33Fzq1o6rpPmlTGdV2QYcF+W9PfeYphoOZA7Z61XoTsR/E1v45ir+5Pb8d XNj/FZSmUS2WoizRI/Sa8KdyPx/zEXoHZOat4vtr4j426bk/mA9dg0s1xxjQ7q/3z1aqv+altIr/1Icf 3Ld7SW4o5C1B1P1T6B8C8W4Y4C4Q/BGnQkn2dun/ve 1mcR1z5g11W4rjVlp2bo2snAkrltW+HvdF7P13us51o3An17N351UbmJiPB03LqulR/paEjvlX/UfWAd iWj7AQMEcAM/jftXLcPgL+OcOD5yr2m7Of7r/SD/EnpsJz0PvfSNS2UW0zz1286VRoc/kkS43dpiyMbV Out+tu66l8sl8rjH/XmdzA1d0Xzz0NK4z81CtzU5aB F4dl99HPYl42R7MT1lf1MZjB94v2BAiWGC8OrHTUYq+hyF/ntDq1SjowQfIs0VeenaqFrRe06n6JX4TP 39VYYN/St7upk3A/gq5CB1/4df1m0q9RhWF+6PRi7RrMK1/0vF0Wb9XjCHlFEfvo+lspGuyI/xLAfpB/ zx/afP51E51eKyfuBukXoaMjqNjtZQP1M0KliRDrJ0 o7+PwyFF4m+u9wsa+CrzK/Ystnjz39I/N9hfAweMmv5QbjthY2/JpTT6D8sD+ih7i5VZV4KcC1uOljM/ 7gOrYjyH/uqJwil9CkQJS1gQzticEGl0zxacpi98/U2Wevluj8592Sfe3vo4YsAofL/zL38W+AM+adbi OxfH/UooYF8J4q8n3sLY+uGrHW/I3NEPBoGM0M5/W9 Tr+KrH+Fa1zc6ytUQh/2yoYs9zfPEWg/aVuhmc19t5F5zdv3sdmtV/6tG20l/xSM3TQx8aGr0/1+q+qF ofx5zVI9MgYumJN2B32NjHs3kyTJ2QE6bxc1oi+0QaRc396k4e+9FwnoOPh2U7Y/Ib6rWX/wS+uuGH80 /cOn0oBH7s00O3Vl2s+xX3oBiVi0/vfuqM6wWtQ+kb 6Qr+Rj1S3Fk5Me52/frgd7pMG/6AS1p3tEr/wFeZH/4B06EYWrE/Fq3rZ98QU7bL/zL73La7qww7wyqV 1LZ7i9tG447+Br4K/uP8IBa9Dg+1o6YG49iJU/xb96J3gLZ3GmNJ+GALINA/ga+Sj4C/83rxzskCBjm1/lrk jhvvOvkrT7laZDgCq37K2/gq+Ti+emGk+5bMTaF7TS yGJ/PA6Z7XY3yt36NoHTQ/I7+/x592jaeIN2pTJ8e4S5/XS0tZmRh1G4vv21LRtf0u+qv4vxb+31Xn/b Jnw5yv84+b1jnzVm/OqvcLJ++3R/pGeuHJs+p8dEJ/dcNIL/3kWXU+FhIhumO7FsW7WrtGNn75Qod3L8 igvzoykb/23yN1/g0IQs4UwJoqoNRirv0jn1O/gD/6 K+yr6VdtJr9q/d0d+Us/efZA/djsrE99vvST584+bkF+QX70d2/wR3+Br85Gf/dBfgN/q3TF/2m3isS1 Vfy/iv4q+pn4abJ9RHb5wiP1JtEW/tl7rtjPflFu/2/lkdH2ZX+hX/W++oy606K/B/09+H/PQP6B/Wendy yXr07tdwlum3RscX/twSyK6e/wZ/BX9F/dZ8w1T480 A8N3vazu5M+rrUeEPa5WpY+XnF0LmLmrXO3y0Y7jSap4YjFb5TuOGgP+CrTNeGMNIP+GD/[place]/VvpJa9 [file] i9w3z7IoLBTFOGCEmUwc4F/Yq5FFGJMvcOSDHREujV vX2tT82MWbRELdwRMw5Bbr0eExNBj8pL7RzmkWlfDcXWrFJFb0Oqh/VjwHtMzP0Ckl4oLUpL4P8hy59l fPNOxa8mgF/QUAL[employer] TECHNICIAN/qhzqh1b2Xshz0nsKgqCwlPvqnhhHv5r2YT6A0lyn91grSS3hDH9dpxLaRzWhzv8Mm [file] paula+vQh8ba9Qh/wQ0yzLjgkRD/9d6DTPHSHsxbBPge9Mh48rzEwwsz9HS3pDZPdgDC+dR/pjudkMFKUM lDLA/wine sales representative/zhiKz4Kkj7GG1ttARsoJVNLxzga45wsHYMSCqHWqBezoLjE3StpM6NYkx4ugbAwLKv7F4vB R0SxHX6F01GiJemj/iExcSP1mVBzTf/pj+VGNrlxLh hQ2FHmAWtdD7JngellqPZXPQ4jIuHmR+BzMP1CL0VqDMuVSQAYXdlW/cgkYhI4YolH197I332b/LHcfc NcatpEexb7gSbrsplwSZMzAeeofo5aW9v7D6Daz82Cy7S+IFAe8BAV2V2dq/yR3Fudm0Htm/odoAag24 WD/lhG+vN8SUdAff9GDhmMhtQKfFF8G4wQFjx+wUh/ GCZpPz6jokGUiUi0gMm9zvyIIqLsy5p5K/7y6ShvUEDWGZWgQcWgevfunq0P4DICOnbVP/2xJDfYxRnp j+VYNpo8gR8P8IGJ1F/x7cOPz5HJYWOG5WrDZADwL1O/toqlzDENpZnQXCAyrxf4TJ2BFcSkXZMPF4nr NuzijPDHkoAp/aV8TG2a9AnJFttEms2s/BG84akU9v v0QOY8zXWfOyympOglOa1A8Mhj4q5aRnfSRWYVE/yxpNIi/YQBwGQLD3FkRN1UWmgF+/HMzi1/w3Ep3x bLaYR0RSXmqMfe7nNN0b4rUQaJ6PaHk8Kfv9KuaNlLFjjvquKo61mJnEb7GoCGO9kOC/+gEAy0RdmNIB W8cuUcd/5YxoDfvpH+WPJfEGDlgffOI/yxVATjQDgO vSVW1dLB+XXCmVq0piVjX1I/cYQ/zguGDRxlHElN46NO/cQR/jovGlxLRTDLKZ1v2K/lUQYpkxScmUbY Gto4nmPRld1kSylPzigEYzejDGypYidMEijkDUdLU4S+4gh/HQTBH2ZSfAXBfiO1C7o7Q0xz69CgyxBB anTFWNBExvXUy6KEmvs/I/yx5JE0/AIvqrediQ9UfN RwC/uJNzJIwdk5/PY8coT0nOvKopKVdI00kh/Sn6iNWsqKsvKlIK8mXRkJ5hvGZb5h+NJlvTC1545Jpq wkVDtJhPzBhMnVyVlVXSrtI1GKwK7teTXNNGgw5GZbQGWJfHbLgrbZGD3xgkGJIvtvBkrGX8RGkcN/hD +YH1N8EU3lEuQpkqA54sDk9dWA574x0w7ncTaiSNss zUbL229x/vEqYl0uRPFlXFx6J3kazLvnPhRIf/rESX1i+cI59RtXFJtbPF+zgJTQGwQtSyL0TDwKez0W iRQjD6u/LLEH0x/WEH5tWXX2aIBBUhFc7+kT9EnVjjLphS9IU4aJEdayVykxU1fGFMCtu5WGkDmNOuY7 u8UDgyCkGrkQQVnFNFCmKVMERpmwr+Vm4ziA/wine sales representative/l qyPUkF17J0Ni9c0ElWGBiJ4wyZBgQnMI0YJLtLedVVamz8wvcmWHQK2D4zuJwCnllrT2kAD4T/lptNWI +WlmrLFvhODUXJ5KPJXXqmgO5ezzawss6ylT9PjaUrTQRwHhcrtBSNkgiXVQUxPU+E40AoA+T6ZFNQpe IkTgx/LAkWwh/LXW4F+CH6imzPRwQAyorA6oZGO843 lNEYweq/sD0ZK1D/ljkXIVeoouHtPzWrb6g98brc9maThbkPB/4lSQbnS3ui/lBZI6F8OPn/RV5cvO0u Cjs3gOnQZyrIGjkinXGqHWVg2z1+yN7DSzKd1G6Bkc9VjzB41HHZ8lu2M0sY7jRed/eE1DtYt85Dv8y+ VPFV9GmwnfUWGP+Y/lheBP/j5r7Vosodvj1MnTi3jz NxD2B6Sc48grtC8KJAy1XH6tp24dkkV6pxF7MEYRjE34BT647Y610oEXIg8Tu67sdewF3TJO3uP2Mf1B e50Wi6lbiOLVCoYlQjTdClE0AdV1IBD5cXbnPILrWi/bHEIA9/MUxOPuhi6B3R1CdCK/DeqxFTSTk1G1 lrCuGPJY//6T2vkZLM0YyDVzi9n7IvuUyhhMghpcan w/1qtR6L2j8VefBZ34vFjjpP+5VT7dMfneqP9JKTunbgctTrlbX8Kyt3R4itUNheLIe4A8kim/gdjGyO 09POJwKpHJqRi9dSSC689f62p9FwuBmS/fste5jgwxbBQ9rqHK4i5N1hi+AsQO8MhaKTwpvZSXCxP43y YVUdeq2oj2deIkKLVc7SGtMQNy2IAvsyjvFYPgOjlL P9aHKGG+mV1fFM4fIMHOZodk7/JWeKsJ5T/gshm2qxPvRWSMSogn7/LI+eKETDygG396vJldxztRJ5NS aM7Q7PAHGwghM+OHjvlUNMIqBK0W/kZHwHTZ0PShDVbqep/QQ8BfegbP8R+6bSqDtYdhPsxoYhm2yQPf XYP4ddVZJTI4hSZxHTi6HaJOgbu1IOxTE/EZ3URfU1 g/THsjMC/CA2N2qbXiwxR5lhvmONWyUAdrfJkF5OZjvvLVCSYdWfJuqsYrwJl0LXMsgHHZQcvL4AJoyB ZwNzsKIVdJ9mecWvl1OYYsdrTOONId5cL8o/SCnUpvcSECH0mYZPawyqjd1Paz3bQUMZclx82N/lLuu6 PXDH2d5Zgald/LKrmBX9qKy7K3iUevCBYXbSyQfBE4 pOWVA3jcCnbjb/TTNvAVDoJwN4qnZdmfk/MQ6devWdivQigIh9XmY7ZyuraOeWcsTdO/spWcZE5TqNFo k4N6Y/yyuKyICv3CO0wERDfGPE/O68+G275psrTb0AkivCuAlav+hXpUrmapLEB8pNzTLaB3Gz5KR+WL Vb1MsSOQMlyZkASZPOnimmY89wxE49CDrBzk/LK3NY xkgBRgp/LDnrwx/GpoC8MoN9zNurT6DQ49Xpx/MCGTBN4CDWhJtUBOUdL4PWFRUvmf+WipBCGXTcSwt/ JHsx7ShEVGwxhc0n4OcO+VD4HhPNAEFT3CgG62V9K4p4EmurRHGERUa7nKfwo4AzQGXFPMiSvL+4g3H9 sdyIvCNc+iN4wWyXiF+LZGbH07LJ37JE/QjD3Hekr9 RDyNbr7EozftUH6nLckmGhmwV/4nI7sj7jo+C3Z2p4yl0MQaKTsaoN3M8nPybve+VKZ+XaBcgtzQc5b5 0nsT8N9hUG2kZDU9lmlXgKyJOcvIVYTBhFYjYA6HwpmaGQzCKEoZAL8f6V2y5Iohk9UbktldhaLfuUiI 8KhxWqQgkP4y/UGvuzNubea5NuEuV9WYqf+gY9LDP4 KThLf1nfA+FP5QSKtRBbPcQ+Ha6wUHz3sfK81wuOF1qkFIk/LPnsKfyxpNIi/CLkm3pvxpX+Fnc4L3cl QPhjGScr/LUWHml4DxzFnpsyHZikq/1f9Heo4m2phVWY90kpB4b7E9sszMI/EJfIKnxupzfb0Y8do1DT M0tHGtGyZC+7npU6qn4AZq0OO6u1pVR3cmfoiXzGUl Njj8YTM5ZoI0g+8q6MSfyZM1QfeiHggRMIct/Ft66whN20pCyZj+TQQqp6gfybk5RzKBZTanfA+GN5ZY qF6GzedD+COudlyEX1MrgiR5CkFjBtcWpxNmL3eieHmQthn+QRsAkGWyf1TNINRrWlrL+Vt84uJYCzns WqDgILuLrWoYI0R2pY6B1qGZP/lhfppOD+QfpjeRFS JinAB+LT4OR92VTkISN4QdtfMEHm3x3Yb/3rf/37H3/L4ted/v1///kf/6f/z3/+/f/++d///penr/Er 9d//3jelo9Aboo6CbzlGz/ZpAuEkjhwuuQu5rERnySaAb4FhOTMe3xdPYsFhWpzWCfEDo61HE4A26elZ CCbX2M8Zx4VssZdz/2eIS6d2Q7NS5cu0cF06s3AfrA T0d6C/YyG/IL8g/0b+xriy02EuKcz/Gfb+mkuB2k7JtQX//97zHHg6/tmIlg0J9CiLM/z1d4pF+Je+pv /hIrQ0iULRr+k7xs+FBN093TFq+gmw6hLSR9u5RW534U8bq9nF/QTh4V/6D696+Rqz3wUO8u21+4MOka 5feusR/vicCH/8IErgqP7I2AXBRfl9NU/8qydb5X+4 BLAunA3DYF3ArJcbf/D/rlH/+5oNYaQvpC+lI00xOUQumr+/Wdeu+iXxstteyCp8zS/odBgOoTjJ8sUo fklvCBf/D+skEvuP09Bv6w/wWci/5PO5K1bUNl2S6A1yJZB0TRzS4v/yq5yY7TaxxbL+8f/z2jEkNxbf fSD/766kUemTVua7faXUF2sUe+08sDJou1SgjSk9FT IP0rE+z2X85uo5qDo131K5SwyEs33j+EvXCHt/bxj5J/JPpC/kX0j3/p4Mf+p4gSTMcn10od+Zx/ubdt K//ksx57X1/zjsX7kf/I9/tfBwpX+D7lxpypYlu0Q2Ml801UPo/x4Ze3xdua/Sv/2Tx0y9O92G3fLrlF khvmO2s+NG13yyhb42o2Su+1DaL0+kK/Y5yoZBUB2j V8f7G+Zn4MppTz09/J7xUl530sgQot/Mirgn02r37om/aQ7O+6sZ/tCdXhEbd0K//b1h72+ANDufZ58O pSAFuu9X//FSzYg7vk7t80nqD2Pmz7k/8qweMgr00/hTkZfu/2++t+5Sefz/oQO70D2NwfPM5wm++xuR HAP+YNNHjW5SwPv4/x1Rdr//3Z+WkBHjk2maNP+8+d OQl+7/70tnnnbJQK56J55FVe0a/yg+ne2kPunEfGbXk/ouZXC9t7s77sakO788pGPO/jq+eoiO6Easms Ce10ntQe9s+h8H/l/HV/N7CtSQ6LQx03zWt7a+9qPCb/z7y4+XX5C+T9Xwt23o+KOPHP/+5pQ46tHClm 76i4/TJG6u3hpa6+vVy46culhRX6xhepRjGq4zMr8s Az92tak/wWeBv8/qpO801Abyeg/3oi0YYqqQZ45lZD7vOOP/+Mo/ON9D48v2683XRRlWfjW1pS+Wdx4a teKf3QBlWn/S0uLN7b/+fkDjC3/4slaA0gL28pj6RzSHN0nCZ9gCv9rwqDxUnt91Q9OtFt6T+V1hQ9wW HYmvv/t+Wdep9rgDea0a8Dfep1ci/7SKF4ZI/vV3z6 uM/jBzami/9PjvHF/eSOH3eq1ygAXk9NazNy+p4yuN/1GwrK0RD2L//w45H333iNDYZ/sET++vXV3AP/ 3b8tSers3sOkuaA/+B15nAryM5llT0vo3o2KkTuYx1v/AOdp4yDaaO0tEOY4Gh+v9cF9koa/5K4/5Hjq 36oOJFCx5w/6/do39Gr9cp0PrM/EffdxJpoAA71lSp aqkYfv8d7tjP6IqvN1+x3jq+geL0APa18/hoplA34rrd8+n4Kvvl+Pr6BdAYUI4rZ55vS/x9/iGoo0PR E9lc81aww/FU7md3cTH9raxbG2Ff+Cxr3gap28nB+Hh/m35li1LY8buwi5ZF788ovBZyHu948pv5/jo2 85cXvzZnuNIdXyV/v5u5wudAc9W0G7nKg+OrE+PE8Z Vlnl9/vwFJ5f24TbWdn3lWCkg3+EpG8hc/50YbvvOvtMj/nX9T5h++kpy/X83Hyjqf+Tfl8+HenQ7ss5 fSM8/GN5y85IOJ+yimmxcmswCfBsccj9IKRjNNVvnP/X1Fjmd/DmTX7vpo/qlazN9t/PjTipxr/rLi1S Xvf/R3Ffl/+bOK/B/7RmMdu6ypSc6v9UYUwhlQ/p7i lu3ob6/o4O4jdzqEN8gBZxIlHn4Hp40qYR0xmMn/TMUt4l1Q5Okjvbsw/pzxYI2V+ttr/il1uUpOBL6k 6yT18ah/H6ACJV4sLR6znu0q6rf3Ixx2qerp511J/eattJ0PXiHWiz93semz1I6riIt5PEztsVjOUShf v/fX9UL+MsU8XV0anadbh9E19e5jN+JEDGb2eWjgA8 KHfcehY1x6fevF/nEI8qbog0/zlxG5X/vDiNz7/D9LS2Pp1WmdpV/HVy/7jprj5X7wpjzAmcM+XmUeX6 +Cp+OrFy7+rh3zgu7thU/HVy+RthMbVmGFiP38Sq32gnh7ka2/XwbezbPg2IR0ein6pt/fHV+dqSZ9e3 y/z9mjuq6N3+ojM2lBGYq+Jo4c7yk/+vCrw/8Lx1fH 9ST+8OHx+fr7wp4/wuL5o+zX3xv++ns0w1+6Rfjrb+g5/lVHEz9hAyIl0H9Xe8y/CJF1uMm8+rujvxrh hnokm3Yx0gfj659Muofxn99r3f5foZA/fhZvxXDcmgld1X19vrjasqjr43wWG/7pu4OUyxtiTd1+nmOt bWhU8Y1pJh/BbI8arbS9Qd+Aj2Iyl0z6N0rw48exJc jv/O444MMPN0c7tzljvuCMREr8rJ86vGB2z0foDeF14zytu/g1XQ9oA7H9cr4XPm5rLijNb319CWv8bq b4MbKqQI05sldnRfplko/pPW71hqy1fD1Iq7frL8kHsp9E/NHfg/5aq/hYe4WUvf695YMpAEUj71agc+ ilbu3tu8zxfvPO8zC15ySP/rr+Thr9ulMUPw+uv7rp GM+ox1s3a3Jor/k8oKBo15eTNgIpTbZ4/GHCS6//158lZH/9VUKue/3nEaqjb5h1unU47GyEC6/NX3+P 6RIur872d1AB16wtPbTq4u3/gdRU5fGPm5vD35a/S5fX44M/vaSaid9HpWFgosIkTFKv2woBzwhuW3+H V/0Bgl9G/ML+/AiLixNJS7Gszh2k/vpr/h/504NlIW fHV+b/sz33KVKo/9dfk8j/9feGHT+vDBd/l1cCRlzEngM1Rl/QQ7yvjd4DDX4W0Xa7YvDjcHY0fh40iE XeXxrc/3haDi0Lwz/yfxzx/0ZYaxyOGs/+ecSWjDUnnMWWdV4sYjJx2AT7Cv7CN7mpsk1sJuzIl+OrrH diPDu+unkm+UyhptGVBjQ3qEwE7+tzhkO/IRFGurZq s8WJdDhhMs1dFnq+3rBcPckKfBX/S+CrDPeqN/ULwp31xCUp8Fu+ocG1pmwFUsEk3Etpy+CrDO+H3/z5 wGunlnwW+qebgoptP87b9iMqIf6GvClJtp4aaz05Ax/F/zH3zdDPh90h2RF5doRW/PwbY/XDV/fl484T /MpEnu/6F7wdvl4lfcwS0Uq+9bcCsmMdEz//rsj/nX +PBv/v/Fhc97PFcyyy/86/O9acD1/Jyj7ad+3Byhz1ge+9xnjv5qNz//UHAonP/I9VL4KGkuU1+t7tjw MenU2EF/RXmd//3+h411qkt8x/6Pgq5R/6Ul86rCpSZw/hV6NyTh5Ll2VaIt7PdxCx1LlQzwT40nanh+ Crk+Dwe8GyDjbSUl9ih6N1//tshHiR95Tva9Am/gQg cam/HQqvaadUuG3I38vJNJ545Nh/c17cS2O8ro/+10GG1TQlhYe0/O/X/s7fnkhxAK/0//pbuN0ua51G +eOyYv1B/ffMu7lCZnbjI+V+5oloy2Gar4eH/ffYO4/0geE2KW922D33gDWdRc2GW0NvS+fBQgDz7zUt Zx3yK80g2w+T2pcdX+XcdHx10+a09Dv2FqeZ0OUTM4 airNX+9Szo0nC3+jPdr/RnG/xGf+7FfqH/X1uhiG3UzwOpfS7SQu26Mo1hEhUl5pez/vIz1Ly1A2xZe/ y7COx5sw2L8Qw6KcuC9OfnSoeb9R06FZWdwl++unk+nTMe8Qrk+QS+quCa7wk72wI6/ioL8qJ387fAi+ tz8/Hp1/Z/laqawX2YS1W85kRFJo04Nxx3ah0Kw/tB feE4Bi8FydCX+UmQAd7K4No+HuwCndk1S12D/yjwVfynga+yrP+/O/Kvh/r8yv7dV38mYkz2/fzH3//f DPv/TqB32B9dyd3f51nn83zh9zTuwIlWPXBzk/ICq2edYlIr/xslW5hp+JX8nFN+I//W6/jqhuv+lV/H z3XDb+HjIxOW8TMs+436UVH6Jq5WOm+J/+pVtOcg/0 Z2uJORI+HfdMdXL/z2X7+Bf/x0ogk32fq+q/Q5fvv+3gBl4dF2uA1XW/1dpc/xe/kee4v6Le+Vk2W54d /DZ5C9w81TfgKWLg5KtZI8ADmL1UPmS/1Jy0ISK1SfUe+DxOe9QYO/CnmG/ejE6v9S+kj2v7gC/zf0V8 ve4aAXq2qP/UJ/J77SzNk4T/wmdLRu418+h/4q+rjx /4b+SjMMPvh/HV/xfEI62KrZ2u2OhjuZD9++01ho0poqgENkyf+k+/h1octm2p+pWa9F9SwRf3MV7NpW +yiyb8B6grh0sKRCKsM7SQ37uNE/glbLR6j/O3/JLp80g5sQ+q9+slLW4p2v0uQAU2TiGjfbv84t/M58 hWtf+PDVXf8/xAM2hY7p9SQw5Ozg9c8cOa0iY8V+7P vsxmeqj46pCi2b1kvTv2aLy8b2JO/lf+T4Kv/CgVgoZoHjiXs7HF0B6trySaZ7kvnOavRp+lgxzF/HVz b2Dx1Gc9g8jS/Zo4AF31XsDfnO6EESjw/5BTM6Uj1en9vUV/83hOOQWc9A/8e78EwsJs0G/5Is4J9uQ+ oIsej9Bms8RgobGC/KN92gOYs7l/7yglFcby9Hi3VV frh9h/4exb11G/fS1+5NW1S9dLl3e+8L2/FEddfMM6381Bd4U27Yqp783Cgu4yA0oHLqb2aFR/FdeDu+ ijPydnwVZ+Tt+CruruwPX/0WxWjDed+Ft+Mra8H/t61bq0dhi4GG4/TItRv8v64+e6400rEJAhyH02hl bpKI6cWz/x4OQ6Gw3nY74Fyi2+S1iFTOQRzb780vLI gjvfTPO/RXITfHV/nfjVP/l+MgY8B2ppfgtdeTn14u2FdcfC06JfnFuqb78SUDy1VVaUJWlQzPF4ouzg TS1+5QHzLFF4Hv3Ulyf/+fqXNHtqjVkbR/R/Sh6o2BAZMkU0JNjo2ynPDARU+3ziYF+jyyvELqyT4lmM mRfiCdhfAL/kht9fOruHS1OGcmbSAQe7U9Qj1Ozfp/ hnRQXuGrDD+Q/qhxY6D/Cl+le1Y/HbX+ncBXU/gq3Qv+C/61/p2j9p+n1/j6bjfz5UN1Gj1uhc4shFO1 eTgdU59bhQpR+Crd/rBN1GHtV/gq/Qs/L65Uwi656Q2j3+GK6bX+nQdfCUvMg6+y/82jJ8NZi7E/PRwy Z/aravySJoefa7xGo5DA2aKXLlIRi8+7CpdMCw83/C f8tf49/pWhkkpIFhE4ihogLj6qeWNlw5Rf5RRM51hsrlsMfbWbK36/X3O5o9ajv6muBcchAWtBk8C/THERMOSTAT MAKER 6Bf8Gwzk4Uexv1Q/7nbE9FvaSGkfgzlpt7ATjt/mf/6rnhbw/XzbN/lWU8+3kPb6mVwGwaDmxKj7QUd0 em8JX+d+Gr6/lUZhQv5K0Du9WUvL/Sv/RDRW6jmLmd 8VW6q7/wTd0P3mg0T/aLc5VbDS2w9s5b8IL+9yprgAPt1Sa8x86JkUqoF03AI04hw/RxNEfYdHq6Jl08 U0SeUVe0t6thorqK3U23S3BFlmvvs3Cumo0dhH02Oi5GyXk4+Or6n/3nUz/k9J0CTMxEs/7x1X3R+LT/ mTxFjWf9sg4OK707t6sf164dLp9Nf0+njT52b5q+MV LMXtTyLQluidht3A/EyAPN37PsA/7Dy+1vXgvzqn+r/edjwC3/q6A735wV/b9h9f+VKgdh828Lq+psh9 FqvR+a6eOv9DfpdgY8hqkX+TbNk2VW1N2CzrTqil4Zf/ZzotX+JhbnHDp0S4Ao+G+F26YHebwl1ICjX8 JX1/3mu+aqgUNBkf6I4A2kdf+0SA2Ay4T0Ja26nhJE jesIPz+34bc02yhrfTiBJ240vyGmzyge97D4di+e9apwKMxR8K7tTSq1zFFT6P/HwVeZ/9HgX+NzjBqf F7O7y2z1YDi+bhQpY6s57CxeNhG+v1be68E86DTbnF6nq4A/claudia+R+0hgldsnaK5g39QyPr6KCkeABgdF NI8FPlC+Lo6TzvJ98f7gf+63p/wEO9tdW/zr/saxmP DXXCFm01EoHUEJHjX9Yo01lRw6Xda+Xeh8UP+z1cbow9buIfbyT2go7JuH+ON16no0Jh4IGutGCRMq/I R/wB/eS88MN2Z1yct40SUy73365V4sp0/Jt314Ct6t6FD/uOuUeseZk68E3+GtBYkv9xrO7QAKg2nemq C+Aq4gtXc2+Yae6fk8ksU/b/3bM2/n/NdD7t/5ssp7 9n270g1b/3pdpOg0F9w0w0r/2p/C/Na/On+Ps3/lmjd/+Gv2ggUTy/xxVYv2BAoCv/aPgcqYd8UJK04v h+2giDhrO3Nnnb+Xnyh4H7A/Kv3r/kZs/L8b/6/sGvq4JafT/Ag5497OjfP9/l/ua6euQpo0bOnctlr9 Pzbas+5fpX/HL4ym249x7SmTjz9+vru+Ku/6qrzrq/ By9b9Ij2U0ij+xvjrvXl+Wx09aP4o/FXLX/7u+Ku/6JsJPhA+Ejzf+ECZzT2hpq120h/DVkn+CL5r8Kf PKF6vb5R9o8ox/Bv/+omgmCk3980lQsk/Z5c0jWj92SA6YcX/dN1tW+qeXNtQ7UffnXJ/8q3lzPzGhyG +lEw8LNYhw7s6p0CwO/aIwu8wtfhilb8LQ/AfSqfOj 7gn2kEEbxCzvBQu9axKxi755R+Fr/k73Pmwk7Tshow9AvrY++ZP1mKRb0/43RAcg2t/7Zqs3+Nf5/up1 yv08yg6j5blE46gERt9O79VlsR/1whurB/zrPHQJX+E5Yks1lE52f50TL43dYQ09G3lncrCM7HVKl7yf D10LxsL2GAjB0pG5Y2Mz0j/SPet/0W5DemTcdRWv/s Dekz89Ce1nAL+vHQ5Tw9hzm80knzon3d8tsypp/237y6ztdeCXp5HhqSghBCOkW8fVtQprcpFbiu/uAy /ddkZ6pt1ITd0tp+UYr3wj/K7wE+RFuXa67u1oeiBlkK59787Zx8kxVjrVHX39gIv+piO8I/yE/0R+UN 3EQQxkmJ0WJqItx/PDpciqu387697V3I/g0l92hf7v FR3hO/uM2xF3XP7/lDfvtyvMhH/d916B/huD9dH7B9X/1/+c9v8qZuyqKpoE9F33GodfeBqd/6N28tib IP0B/4WEg1X5xNO9rg1OP3wg1J/gv+C/4V/8K9pSbbEiK/12GuzTCthL7VYlhHcm4Dz64J2ua/Y3lvav si6J4yEwsvM5PI57D+0631+71vtL+5nzPlkT9YwshM hWx9py1++v9uv2V/IQ6e8vR2/sr/hp66i2s2m1i7tD9q9zd1sU/gP+DH1mdA8oUhevK+Ff8+/+Av4L4e s+w/7qPsPW+oFa3492i4Dl+oA50fMK75m/ofKh791vAcc9ui7oiHZrKqotb0s9gKG4hr+4NweiG50F8m dtm/A/5Mp1iCTU5hj3fWdC/7TnT+69D3vZebm7zMpE yjN20v9s5S6ttZ1fKT6X/pT3uuE/Kn44Q5EtgH6H/g7/uu+9W91/5n0Mn9I+FvKj9+chy7u0Q8xy2+71 rn6awwgPqFR0x6zv7xC19rxK7p/jzvwjqg212N7C5K2yN4lyW3c1rs+8e82/o9g1oR11Dfv9T0aiyg8X 73fPef/wlcu+0/7dA18vJ2g/7HKJ8kK+1at3A05/+M qnyf+sf/2T+89/nTX1/uErXxnmt/3h4t5810I6rD1Ec+cW2tlkdq6nW+5Q3kL8W5a210PsK06Xafg18R Xee+0Dj2uJUOCndz3f3u6wbi1E/zjBX4Y1uk4Fzjy/6Ph/P53HtgdvMkB379DBk5+no0kR7XIxs3//q7 oVvspvobzCV+qtdz7vrCJg8h8Qo969/IWvrhv+9Z59 C1+yh8bcUgRnZt7dy/FFegG6eaVDdF/CV+dThX3Bk5mpo+aM5Rf3QiWT/BfCr6p/4Sv1C+GfnBTzrN6i Xeqv9eb6A6lFgqUVVwxBtsJkr8V+db8d11kgKJ/3GXZM+E8vd+5n5Ra5yrYtuvd08m9Nxtykw+9V5ykb +GqvOj/tqCu5UGBdG4hxTqv53wk6bc32Bog9i8U31x j1XVw07/vr79b9KgpDqiy7sY043M0xRnrN9d4F3mf646vXvuVTtDz6/c19XvUjVy3qlP5u9YsMJ3LA1f +34gex4IoehB4v+0h0llZmaESP0peAk7lKg0z0pr7fea172Pfds+4T/jDKHAp1WtlN4F/XSuk02dKYn3 AYp24F/wn9o/Dy+nqXhWjt1UF3Rha1TqB/YT6w+BMY p65z/KBEiEpPc9QSFUi1Td78hj/cyRNaQSDo87nMLpc0DydB/sUr3refX0d41t+njsYOqF1yE6kzbM/w +hdeNE60WjlYNkY5IDr2MSt8sg+Eeub/E5Ba+4UkpXyWeGViUK1g3GC0Ab6G/Q17P+GNh3/BmQK1THqW VDaKU7NilskcgJZOLaBNe23G7iJ3VfWsGX7wK7SpQC 9AL0J9xmQ8tqSqA46DwqVF9W2i0IiY3NdcwGlUdZ5tdB+SgXhVlu99bU6GOglmJjM/NGjpp7WtZAtXeG TmxhJrxRd4a6EbEfRVnVqrO42CZKLuuB+MQLvW+8RsLnqg+QXlqsqWRsT25qL0GW8X3lnVwx87LTE57U 9CLbV/zf870Q6Vyqh+wpvN/[facility]/f9TOEBn8Sa4xT0/ [file] v9GPoUC0dGz6JGMOocjLH2orQ9XUKrJA62vtWD/[place] [file] Xr2Kc218EDLoNHXLLui+FcybkZNxiNwwQTKFTOMxGcU7JcXaRH2X ID Date Data Source [id number] 04/11/2020 03:58:00 PM EST [facility] Name Value Range Interpretation Code Description Data Tisha rce(s) Supporting Document(s) VANCOMYCIN RANDOM 28.3 ug/mL [facility] THERAPEUTIC RANGE IS ONLY AVAILABLE FOR PEAK AND TROUGH SPECIMENS. RANDOM LEVEL RESULTS MUST BE INTERPRETED BY THE PHYSICIAN. ID Date Data Source [id number] 04/11/2020 10:56:42 AM EST [facility] [place] [facility] Name Value Range Interpretation Code Description Data Tisha rce(s) Supporting Document(s) SODIUM 139 mmol/L (136-145) [facility] [place] [facility] POTASSIUM 4.3 mmol/L (3.6-5.2) [facility] [place] [facility] CHLORIDE 108 mmol/L (100-108) [facility] [place] [facility] CO2 27 mmol/L (22-31) [facility] [place] [facility] ANION GAP 4 mmol/L (7-16) L [facility] [place] UREA NITROGEN 18 mg/dL (7-24) [facility] [place] [facility] CREATININE 0.94 mg/dL (0.60-1.00) [facility] [place] BUN/CREAT RATIO 19.1 RATIO (10.0-20.0) [facility] GLUCOSE 238 mg/dL (70-99) H [facility] [place] CALCIUM 8.0 mg/dL (8.4-10.2) L [facility] [place] GFR >60 ml/min/1.73m2 (>59) [facility] [place] [facility] GFR ([facility] AM) >60 ml/min/1.73m2 (>59) [facility] [place] [facility] GFR INTERPRETATION [facility] --NORMAL KIDNEY FUNCTION OR MILD DISEASE - GFR >OR= 60CHRONIC KIDNEY DISEASE - GFR 15 - 59RENAL FAILURE - GFR <15 Est. GFR calculation based on the MDRDstudy equation, which assumes a steadystate for creatinine. Est. GFR should notbe used for medication dosing. ID Date Data Source [id number] 04/11/2020 10:25:22 AM EST [facility] [place] Name Value Range Interpretation Code Description Data Tisha rce(s) Supporting Document(s) WBC 13.8 10*3/uL (4.1-11.0) H [facility] [place] [facility] RBC 4.45 10*6/uL (4.00-5.40) [facility] [place] [facility] HGB 12.2 g/dL (12.0-16.0) [facility] [place] [facility] HCT 35.8 % (36.0-47.0) L [facility] [place] [facility] MCV 80.6 fL (80.0-95.0) [facility] [place] [facility] MCH 27.5 pg (27.0-32.0) [facility] [place] [facility] MCHC 34.1 g/dL (32.0-36.0) [facility] [place] [facility] RDW 15.2 % (10.5-14.5) H [facility] [place] [facility] PLT 214 10*3/uL (150-450) [facility] [place] [facility] MPV 9.2 fL (7.1-10.7) [facility] [place] [facility] ID Date Data Source [id number] 04/11/2020 08:21:19 AM EST [facility] [place] [facility] Name Value Range Interpretation Code Description Data Tisha rce(s) Supporting Document(s) POC NOVA GLU 243 mg/dL (70-99) H [facility] [place] [facility] PERFORMED BY [facility] CLINICAL STAFF ID Date Data Source [id number] 04/11/2020 07:06:00 AM EST [facility] ([facility]) Name Value Range Interpretation Code Description Data Tisha rce(s) Supporting Document(s) Est. Average Glucose 171 mg/dL [facility] ([facility]) Hemoglobin A1c/Hemoglobin.total in Blood 7.6 % 4.0-6.0 [facility] ([facility]) Performed using Siemens Hampton immunoassa y. Care must be taken when interpreting HbA1c results in patients with a hemoglobin variant or decreased erythrocyte lifespan. Values 5.7 - 6.4% suggest prediabetes. Values >=6.5% are diagnostic for diabetes. REFERENCE: DIABETES CARE 2018: 41(S13-S27). PERFORMED AT [address] [place] [address] ID Date Data Source [id number] 04/11/2020 06:57:00 AM EST [facility] ([facility]) Name Value Range Interpretation Code Description [...] mmol/L 22 -31 [facility] ([facility]) Anion gap in Serum or Plasma 2 mmol/L 7-16 [facility] ([facility]) Calcium [Mass/volume] in Serum or Plasma 9.1 mg/dL 8.4-10.2 [facility] ([facility]) Urea nitrogen/Creatinine [Mass Ratio] in Serum or Plasma 17.5 1 0.0-20.0 [facility] ([facility]) Glucose [Mass/volume] in Serum or Plasma 57 mg/dL 70-99 [facility] ([facility]) Globulin [Mass/volume] in Urine by Electrophoresis 5.0 g/dL 2.7-4.3 [facility] ([facility]) Albumin [Mass/volume] in Synovial fluid 2.7 g/dL 3.5-4.6 [facility] ([facility]) Protein [Mass/volume] in Synovial fluid 7.7 g/dL 6.4-8.2 [facility] ([facility]) Alkaline phosphatase [Enzymatic activity/volume] in Serum or Plasma 206 U/L 45-117 [facility] ([facility] ) Alb/Glob ratio 0.5 [facility] ([facility]) Bilirubin direct and total panel [Mass/volume] - Serum or Pl asma 0.4 mg/dL 0.0-1.0 [facility] ([facility] ) PLEASE NOTE: Total bilirubin results may be falsely elevated in patients taking Eltrombopag. Aspartate aminotransferase [Enzymatic activity/volume] in Serum or Plasma 11 U/L 11-39 [facility] ([facility]) Alanine aminotransferase [Enzymatic activity/volume] in Seru m or Plasma 18 U/L 12-78 [facility] ([facility] ) Glomerular filtration rate/1.73 sq M pre dicted among non-blacks [Volume Rate/Area] in Serum or Plasma by Creatinine-based formula (MDRD) Laboratory test result [facility] ([facility]) Glomerular filtration rate/1.73 sq M pre dicted among non-blacks [Volume Rate/Area] in Serum or Plasma by Creatinine-based formula (MDRD) Laboratory test result [facility] ([facility]) -- NORMAL KIDNEY FUNCTION OR MILD [...] Laboratory test result [facility] ([facility]) ID Date Data Source [id number] 04/11/2020 05:25:18 AM EST [facility] [place] [facility] Name Value Range Interpretation Code Description Data Tisha rce(s) Supporting Document(s) POC NOVA GLU 339 mg/dL (70-99) H Lab [facility] PERFORMED BY [facility] CLINICAL STAFF ID Date Data Source [id number] 04/11/2020 05:14:02 AM EST [facility] NT INFORMATIONPatient MRN Name Date of Age Gend*PT [id number] Tatianna Soto 1965 54 years F IPPT Location Admission Date/Time Visit ID Attending [id number] 04/10/202316 --- Brittani Birmingham MD ([id number]) EPI ID CSN Admitting Provider [id number] Brittani Birmingham MD([id number])History per PA note get CTA to define circulation better Name Value Range Interpretation Code Description Data Tisha rce(s) Supporting Document(s) ID Date Data Source [id number] 04/11/2020 05:12:37 AM EST [facility] NT INFORMATIONPatient MRN Name Date of Age Gend*PT [id number] Tatianna Soto 1965 54 years F IPPT Location Admission Date/Time Visit ID Attending [id number] 04/10/202316 --- Brittani Birmingham MD ([id number]) EPI ID CSN Admitting Provider [id number] Brittani Birmingham MD([id number]) Attestation signed by Brittani Birmingham MD at 04/11/2020 5:12 AMI saw and evaluated the patient and reviewed pas note. I agree with thehistory, physical and medical decision making with the following additions,exceptions, and/or observations:Signature: TIMA Lawrenceate: April 11, 2020Time: 5:12 AM---- VASC ULAR SURGERYADMISSION HISTORY AND PHYSICALMelinda Doctors Medical CenterN:[id number]: 1965Informant: The patient who is reliable as well as old medical recordsPrimary Care Provider: TOM RUANO DOAttending: LEVI LawrenceubjectiveHPI:54 years White or female, well known patient to the vascularsurgery service with a past medical history significant for PVD and ischemia,CAD (s/p quintuple bypass graft 01/16/2016), HTN, DM, COPD, hyperlipidemia, PAD,HERMAN and heavy smoker) has been transferred from [facility] ED with aright groin infection. Patient claims [...] femoral endarterectomy, Iliac to profunda femoral bypass [id number] ringed PTFE and Jump graft from the [...] and home nursing care. She wasread[facility] to [facility] on 02/18/2020 for poorly healing ulcers and [...] Wednesday, and Wednesday.She was last seen by FORESTRY HUNTER (Karen Bar) in the cardiology office on [...] VEIN HARVEST; Surgeon: Saba Smith MD; Location: [facility]; Service: Cardiac/Open Heart; Laterality: N/A; FOOT [...] femoral endarterectomy, Iliac to profunda femoral bypass [id number] ringed PTFE and Jump graft from the [...] Take 80 mg by mouth daily 04/09/2020 [id number] buPROPion (WELLBUTRIN XL) 150 MG 24 hr tablet Take 150 mg by mouth daily04/10/2020 at 0900 clopidogrel (PLAVIX) 75 MG tablet Take 75 mg by mouth daily 04/10/2020 [id number] cyclobenzaprine (FLEXERIL) 5 MG tablet Take 5 [...] Take 10 mg by mouth daily 04/10/2020 [id number] metoclopramide (REGLAN) 10 MG tablet Take 10 [...] NEEDED FOR PAIN MAXIMUM DAILY DOSE 6 [id number]/10/2020 at 1100 pentoxifylline (TRENTAL) 400 MG CR [...] under the skin once a week on Vstjkh94/20/20 at 0800 nystatin (MYCOSTATIN) powder Apply 1 [...] stat labs ordered here (I did review [facility] labs 04/10 at 1553 Cr 1.10; WBC16.3)- [...] CAD s/p quintuple CABG 12/2015 - in [place]; recent visit with NPrecommendations: continue ASA, Plavix, ACEI and statin therapyECHO 07/06 EF 45-50%5. HLD- continue statin6. HTN- continue lisinopril7. COPD- continue inhaler- LET8. Pain management: continue flexeril, lyricaC[facility] Pro[facility]axis: heparin for DVT prophylaxis.Code Status: [facility] Proxy: -ADOD: unknownPatient condition and plan of care discussed with Brittani Birmingham MD and delonte. Further adjustments to the plan will come from him.Signature: GLENIS Magana-CDepartment of Vascular SurgeryDate: April 11, 2020Time: 12:09 AM Name Value Range Interpretation Code Description Data Tisha rce(s) Supporting Document(s) ID Date Data Source [id number] 04/11/2020 09:44:53 AM EST [facility] Name Value Range Interpretation Code Description Data Tisha rce(s) Supporting Document(s) POC NOVA GLU 162 mg/dL (70-99) H [facility] [place] [facility] PERFORMED BY [facility] CLINICAL STAFF ID Date Data Source [id number] 04/14/2020 08:18:37 AM EST [facility] SPECIMEN DESCRIPTION SURGICAL WOU NDSPECIAL REQUESTS NONEGRAM STAIN MANY (>25/LPF) WHITE BLOOD CELLS MODERATE (5 TO 10/OIF) GRAM POSITIVE COCCI RARE (<1/OIF) GRAM NEGATIVE RODSCULTURE RESULTS MANY BETA HEMOLYTIC STREPTOCOCCI GROUP A ISOLATED MANY STAPHYLOCOCCUS AUREUSPRELIMINARY CULTURE RESULT CALLED TO CAROLYN ON [facility] D4 AT 1147 ON04/12/20 42283.NOTE: BIOCHEMICAL IDENTIFICATION SYSTEMS WERE SET UP ON [...] rce(s) Supporting Document(s) ID Date Data Source [id number] 04/11/2020 11:06:10 AM EST [facility] [place] [facility] Name Value Range Interpretation Code Description Data Tisha rce(s) Supporting Document(s) SPECIMEN DESCRIPTION [facility] METH RES STAPH AUR (NEG) A [facility] COMMENT [facility] [place] [facility] D4 AND EMAILED TO [facility] IC AT 1 104 PV [id number] VM [address]. ID Date Data Source [id number] 04/11/2020 02:06:41 AM EST [facility] [place] [facility] Name Value Range Interpretation Code Description Data Tisha rce(s) Supporting Document(s) HEMOGLOBIN A1C @ 7.6 % (4.0-6.0) H [facility] [place] [facility] Performed using Siemens Hampton immunoassa y.Care must be taken when interpreting HuJ3dncagecg in patients with a hemoglobin variantor decreased erythrocyte lifespan. Values 5.7 - 6.4% suggest prediabetes.Values >=6.5% are diagnostic for diabetes.REFERENCE: DIABETES CARE 2018: 41(S13-S27).PERFORMED AT [address] [place] [address] EST AVERAGE GLUCOSE 171 mg/dL [facility] [place] [place] [facility] ID Date Data Source [id number] 04/17/2020 10:41:04 AM EST [facility] [place] [facility] SPECIMEN DESCRIPTION PERIPHERAL 2SPECIAL REQUESTS NONECULTURE RESULTS NO GROWTH 6 DAYSREPORT STATUS FINAL 04/17/2020 Name Value Range Interpretation Code Description Data Tisha rce(s) Supporting Document(s) ID Date Data Source [id number] 04/17/2020 10:41:04 AM EST [facility] [place] [facility] SPECIMEN DESCRIPTION PERIPHERAL 1SPECIAL REQUESTS NONECULTURE RESULTS NO GROWTH 6 DAYSREPORT STATUS FINAL 04/17/2020 Name Value Range Interpretation Code Description Data Tisha rce(s) Supporting Document(s) ID Date Data Source [id number] 04/11/2020 01:57:49 AM EST [facility] [place] [facility] Name Value Range Interpretation Code Description Data Tisha rce(s) Supporting Document(s) SODIUM 137 mmol/L (136-145) [facility] [place] [facility] POTASSIUM 3.9 mmol/L (3.6-5.2) [facility] [place] [facility] CHLORIDE 104 mmol/L (100-108) [facility] [place] [facility] CO2 31 mmol/L (22-31) [facility] [place] [facility] ANION GAP 2 mmol/L (7-16) L [facility] [place] [facility] UREA NITROGEN 17 mg/dL (7-24) [facility] [place] [facility] CREATININE 0.97 mg/dL (0.60-1.00) [facility] [place] [facility] BUN/CREAT RATIO 17.5 RATIO (10.0-20.0) [facility] GLUCOSE 57 mg/dL (70-99) L [facility] [place] [facility] CALCIUM 9.1 mg/dL (8.4-10.2) [facility] [place] [facility] TOTAL PROTEIN 7.7 g/dL (6.4-8.2) [facility] [place] [facility] ALBUMIN 2.7 g/dL (3.5-4.6) L [facility] [place] [facility] GLOBULIN 5.0 g/dL (2.7-4.3) H [facility] [place] [facility] ALB/GLOB RATIO 0.5 RATIO [facility] [place] [facility] ALKALINE PHOSPHATASE 206 U/L (45-117) H [facility] BILIRUBIN,TOTAL 0.4 mg/dL (0.0-1.0) [facility] [place] [facility] PLEASE NOTE:Total bilirubin results may be falselyelevated in patients taking Eltrombopag. AST (SGOT) 11 U/L (11-39) [facility] [place] [facility] ALT (SGPT) 18 U/L (12-78) [facility] [place] [facility] GFR >60 ml/min/1.73m2 (>59) [facility] [place] [facility] GFR ( AMER) >60 ml/min/1.73m2 (>59) [facility] [place] [facility] GFR INTERPRETATION [facility] --NORMAL KIDNEY FUNCTION OR MILD DISEASE - GFR >OR= 60CHRONIC KIDNEY DISEASE - GFR 15 - 59RENAL FAILURE - GFR <15 Est. GFR calculation based on the MDRDstudy equation, which assumes a steadystate for creatinine. Est. GFR should notbe used for medication dosing. ID Date Data Source [id number] 04/11/2020 01:27:25 AM EST [facility] [place] [facility] Name Value Range Interpretation Code Description Data Tisha rce(s) Supporting Document(s) WBC 16.1 10*3/uL (4.1-11.0) H [facility] [place] [facility] RBC 5.04 10*6/uL (4.00-5.40) [facility] [place] [facility] HGB 13.7 g/dL (12.0-16.0) [facility] [place] [facility] HCT 41.3 % (36.0-47.0) [facility] [place] [facility] MCV 81.9 fL (80.0-95.0) [facility] [place] [facility] MCH 27.2 pg (27.0-32.0) [facility] [place] [facility] MCHC 33.2 g/dL (32.0-36.0) [facility] [place] [facility] RDW 14.7 % (10.5-14.5) H [facility] [place] [facility] PLT 254 10*3/uL (150-450) [facility] [place] [facility] MPV 8.8 fL (7.1-10.7) [facility] [place] [facility] ID Date Data Source [id number] 04/11/2020 01:47:11 AM EST [facility] [place] [facility] Name Value Range Interpretation Code Description Data Tisha rce(s) Supporting Document(s) POC NOVA GLU 55 mg/dL (70-99) L [facility] [place] [facility] [place] [facility] BY [facility] CLINICAL STAFF ID Date Data Source [id number] 04/10/2020 06:43:00 PM EST [facility] Name Value Range Interpretation Code Description Data Tisha rce(s) Supporting Document(s) SARS coronavirus 2 RNA [Presence] in Res piratory specimen by CHLOE with probe detection [facility] This lab was ordered by [facility] a nd reported by [facility]. ID Date Data Source [id number] 03/21/2020 01:59:00 PM EST [facility] ([facility]) Name Value Range Interpretation Code Description Data Tisha rce(s) Supporting Document(s) Arterial Ultrasound Lower Extremity Right Laboratory test result [facility] ([facility]) ID Date Data Source [id number] 03/05/2020 06:33:56 AM EST [facility] NT INFORMATIONPatient MRN Name Date of Age Gend*PT [id number] Tatianna Soto 1965 54 years F OBSPT Location Admission Date/Time Visit ID Attending [id number] 02/18/20 [facility] --- --- EPI ID CSN Admitting Provider [id number] Brittani Birmingham MD([id number]) Attestation signed by Brittani Birmingham MD at 03/05/2020 6:33 AMI saw and evaluated the patient and reviewed pas note. I agree with thehistory, physical and medical decision making with the following additions,exceptions, and/or observations:Signature: TIMA Lawrenceate: March 05, 2020Time: 6:33 AM --Vascular Surgery PA Admission H&P Note Tatianna Soto Admission Date: 02/18/2020MRN: [id number]: 1965 54 yearsPrimary Care Provider: Michela COEnovant health Physician: Brittani Birmingham MD Informant:Pt and chart- [...] day. Her home nurse sent her to [facility], who contact Tiago (oncall) for further instruction. [...] VEIN HARVEST; Surgeon: Saba Smith MD; Location: [facility]; Service: Cardiac/Open Heart; Laterality: N/A; FOOT [...] femoral endarterectomy, Iliac to profunda femoral bypass [id number] ringed PTFE and Jump graft from the [...] rce(s) Supporting Document(s) ID Date Data Source [id number] 02/28/2020 08:56:49 PM EST [facility] NT INFORMATIONPatient MRN Name Date of Age Gend*PT [id number] Tatianna Soto 1965 54 years F IPPT Location Admission Date/Time Visit ID Attending [id number] 02/05/20 0417 --- --- EPI ID CSN Admitting Provider [id number] Dain Sanford MD([id number]) [place] [address] OPERATIVE REPORT OPNAME: TATIANNA SOTO#: [id number] #: [id number] ADMISSION DATE: 02/05/2020DOB: 1965 SEX: F PT TYPE: I VascACCT #: [id number] CARE PHYSICIAN: TOM CORONADO-SURBEDATE OF OPERATION: 02/08/2020AMENDED TO CORRECT DATE OF SERVICE. ORIGINAL DICTATION PERFORMED ON02/09/2020 AT 12:00; DIC #[id number] DIAGNOSIS:Protruding sternal wire.POSTOPERATIVE DIAGNOSIS:Protruding sternal wire.ANESTHESIA:General anesthesia.ATTENDING:Dr. [...] recovery room in stablecondition.LASHON Spann/CARMINE Job #: [id number] DOC #: [id number] Name Value Range Interpretation Code Description Data Tisha rce(s) Supporting Document(s) ID Date Data Source [id number] 02/26/2020 10:05:32 PM EST [facility] NT INFORMATIONPatient MRN Name Date of Age Gend*PT [id number] Tatianna Soto 1965 54 years F IPPT Location Admission Date/Time Visit ID Attending [id number] 02/05/20 0417 --- --- EPI ID CSN Admitting Provider [id number] Dain Sanford MD([id number]) [place] [address] OPERATIVE REPORT OPNAME: TATIANNA SOTO#: [id number] #: [id number] ADMISSION DATE: 02/05/2020DOB: 1965 SEX: F PT TYPE: I VascACCT #: [id number] CARE PHYSICIAN: TOM CORONADO-SURBEDATE OF OPERATION: 02/09/2020PREOPERATIVE [...] recovery room in stablecondition.LASHON Spann/CARMINE Job #: [id number] DOC #: [id number] Name Value Range Interpretation Code Description Data Tisha rce(s) Supporting Document(s) ID Date Data Source [id number] 02/23/2020 10:31:53 AM EST [facility] NT INFORMATIONPatient MRN Name Date of Age Gend*PT [id number] Tatianna Soto 1965 54 years F OBSPT Location Admission Date/Time Visit ID Attending ProviderD-[id number] 02/18/20 1640 --- --- EPI ID CSN Admitting Provider [id number] Brittani Birmingham MD([id number])Surgical Discharge SummaryTatianna SotoN: [id number] date: 02/18/2020Admitting Physician: TIMA Lawrenceischarge date and [...] Get Your MedicationsThese medications were sent to [facility] [address] [place] [address] ciprofloxacin 250 MG tablet metroNIDAZOLE 250 MG [...] home on 02/16/2020 with Home Care and [facility] infusion services, [facility] agreed to assist with antibiotics administration. Wound vac wasdelivered to her home for the left heel and would be changed three times weeklyby [facility] Care.Hospital Course & Complications: She was readmitted on 02/18/2020 because it wasdiscovered that she was only receiving IV antibiotics once a day rather than 3times a day as pres cribed. Home care nurse referred [facility],she was then transferred to [facility] for admission to sort out the infusion issues.While hospitalized, she was continued on IV meropenem as originally prescribedby infectious disease via right arm PICC. Her left heel wound VAC was alsochanged on 02/19/2020.Patient told CCM that she was struggling at home with ADLs, ambulation, mealpreparation. She was incontinent and her children unable to help her becausethey work. Patient requested STR placement. [facility] accepted thepatient, but her insurance does not par and all other local facil ities wouldneed to decline the patient before she could be accepted to [facility]. Asof 02/20/2020, [facility] and [facility] declined, [facility] was pending.During the evening of 02/20/2020 [...] and [facility] be [facility] as soon as possible.She was also receptive to continuing the wound VAC to her left heel Home carese rvices would continue to see her. She brought her home wound vac pump homewith her and she has the unopened dressing supplies from [facility] in her home.Because I could not give [...] drainage.LLE incisions open to air, no drainage. Luning intact.Left heel wound vac dressing removed, beefy red wound base, no skin edgenecrosis, no malodor. Bone exposed in wound bed. Scant serosanguinous drainage.Pulses: palpable DP pusle BLESkin: Skin color, texture, and turgor otherwise normal.Items needing special attention:[facility] will [facility] to continue Home Care services for patients left heel woundvac. She brought the home pump with her upon discharge. She has an open woundVAC supplies at home. She was sent home with dressing supplies for aneuhmfag-au-xxk and she agreed that she knows how [...] rce(s) Supporting Document(s) ID Date Data Source [id number] 02/20/2020 10:07:00 PM EST [facility] ([facility]) Name Value Range Interpretation Code Description Data Tisha rce(s) Supporting Document(s) Laboratory test finding (navigational concept) 192 mg/dL 70-99 [facility] ([facility]) PERFORMED BY [facility] CLINICAL STAFF ID Date Data Source [id number] 02/20/2020 05:08:12 PM EST [facility] [place] [facility] Name Value Range Interpretation Code Description Data Tisha rce(s) Supporting Document(s) POC NOVA GLU 192 mg/dL (70-99) H [facility] [place] [facility] [place] [facility] BY [facility] CLINICAL STAFF ID Date Data Source [id number] 02/20/2020 11:31:29 AM EST [facility] [place] [facility] Name Value Range Interpretation Code Description Data Tisha rce(s) Supporting Document(s) POC NOVA GLU 206 mg/dL (70-99) H [facility] [place] [facility] [place] [facility] BY [facility] CLINICAL STAFF ID Date Data Source [id number] 02/20/2020 10:38:04 AM EST [facility] [place] [facility] Name Value Range Interpretation Code Description Data Tisha rce(s) Supporting Document(s) POC NOVA GLU 254 mg/dL (70-99) H [facility] [place] [facility] [place] [facility] BY [facility] CLINICAL STAFF ID Date Data Source [id number] 02/20/2020 09:00:00 AM EST [facility] ([facility]) Name Value Range Interpretation Code Description Data Tisha rce(s) Supporting Document(s) Erythrocytes [#/volume] in Blood by Automated count 3.69 10*6/uL 4.00 -5.40 [facility] ([facility]) Leukocytes [#/volume] in Blood by Automated count 8.6 10*3/uL 4.1-11. 0 [facility] ([facility]) Hematocrit [Volume Fraction] of Blood by Automated count 30.2 % 3 6.0-47.0 [facility] ([facility] PERFORMED AT [address] [place] [address] [address] [address] Hemoglobin [Mass/volume] in Blood 10.2 g/dL 12.0-16.0 [...] [facility]) ID Date Data Source [id number] 02/20/2020 08:26:32 AM EST [facility] [place] [facility] Name Value Range Interpretation Code Description Data Tisha rce(s) Supporting Document(s) POC NOVA GLU 170 mg/dL (70-99) H [facility] [place] [facility] [place] [facility] BY [facility] CLINICAL STAFF ID Date Data Source [id number] 02/20/2020 07:24:00 AM EST [facility] ([facility]) Name Value Range Interpretation Code Description Data Tisha rce(s) Supporting Document(s) Laboratory test finding (navigational concept) Laboratory test result [facility] ([facility]) THIS ASSAY AMPLIFIES AND DETECTS THE TAR GET RNA USING REAL-TIME PCR. NEGATIVE 2019_NCOV RT-PCR RESULTS DO NOT PRECLUDE 2019_NCOV INFECTION AND SHOULD NOT BE USED THE SOLE BASIS FOR PATIENT MANAGEMENT DECISIONS. Specimen Description Laboratory test result [facility] ([facility]) Laboratory comment [Text] in Report Narrative Laboratory test result [facility] ([facility]) THE [place] FDA HAS MADE THIS TEST AVAILABL E UNDER AN EMERGENCY USE AUTHORIZATION (EUA) FOR THE DETECTION AND/OR DIAGNOSIS OF THE VIRUS THAT CAUSES COVID-19. EMAILED TO [facility] AT 0625 on [phone] Employed In [employer] Laboratory test result [facility] ([facility]) Symptomatic Laboratory test result MEDEN T ([facility]) First Test Laboratory test result [facility] ([facility]) Illness or injury onset date and time Laboratory test result [facility] ([facility]) Hospitalized Laboratory test result MEDE NT ([facility]) Icu Laboratory test result [facility] ([facility]) Laboratory test result [facility] ([facility] Laboratory test result [facility] ([facility]) ID Date Data Source [id number] 02/20/2020 04:00:51 AM EST [facility] [place] [facility] Name Value Range Interpretation Code Description Data Tisha rce(s) Supporting Document(s) WBC 8.6 10*3/uL (4.1-11.0) [place] RBC 3.69 10*6/uL (4.00-5.40) L [facility] [place] [facility] [place] HGB 10.2 g/dL (12.0-16.0) L [facility] [place] [facility] [place] HCT 30.2 % (36.0-47.0) L [facility] [place] [facility] [place]FORMED [place] [address] [place] [address] MCV 81.9 fL (80.0-95.0) [facility] [place] [facility] [place] MCH 27.8 pg (27.0-32.0) [facility] [place] [facility] [place] MCHC 33.9 g/dL (32.0-36.0) [facility] [place] of [place] RDW 16.4 % (10.5-14.5) H [facility] [place] of [place] PLT 430 10*3/uL (150-450) [facility] [place] [facility] [place] MPV 7.7 fL (7.1-10.7) [facility] [place] kylie CEDILLO ID Date Data Source [id number] 02/20/2020 12:00:00 AM EST [facility] [place] kylie CEDILLO Name Value Range Interpretation Code Description Data Tisha rce(s) Supporting Document(s) SARS coronavirus 2 RNA [Presence] in Res piratory specimen by CHLOE with probe detection [facility] [place] of [place] This lab was reported by [facility] [place] [facility]. ID Date Data Source [id number] 02/20/2020 06:30:58 AM EST [facility] [place] kylie CEDILLO Name Value Range Interpretation Code Description Data Tisha rce(s) Supporting Document(s) SPECIMEN DESCRIPTION [facility] [place] [facility] [facility] [place] COVID19 RESULT (NDET) [facility] [place] [facility] THIS ASSAY AMPLIFIES AND DETECTSTHE TARG ET RNA USING REAL-TIME PCR.NEGATIVE 2019_NCOV RT-PCR RESULTS DONOT PRECLUDE 2019_NCOV INFECTION ANDSHOULD NOT BE USED THE SOLE BASISFOR PATIENT MANAGEMENT DECISIONS. COMMENT [facility] [place] kylie CEDILLO UNDER AN EMERGENCY USE AUTHORIZATION(EUA ) FOR THE DETECTION AND/OR DIAGNOSISOF THE VIRUS THAT CAUSES COVID-19.EMAILED TO [facility] AT 9081 ON [phone] FIRST TEST [facility] [place] [facility] [place] [facility] [place] SYMPTOMATIC [facility] [place] [facility] [place] DATE OF SYMPT ONSET [facility] [place] HOSPITALIZED [facility] [place] [facility] ICU [facility] [place] [facility] [place] CONGREGATE CARE SET [facility] [place] [place] [facility] [place] [facility] [place] [facility] [place] ID Date Data Source [id number] 02/19/2020 06:08:42 PM EST [facility] [place] kylie CEDILLO Name Value Range Interpretation Code Description Data Tisha rce(s) Supporting Document(s) POC NOVA GLU 163 mg/dL (70-99) H [facility] [place] of [place] PERFORMED BY [facility] CLINICAL STAFF ID Date Data Source [id number] 02/19/2020 01:40:30 PM EST [facility] NT INFORMATIONPatient MRN Name Date of Age Gend*PT [id number] Tatianna Soto 1965 54 years F IPPT Location Admission Date/Time Visit ID Attending [id number] 02/05/20 0417 --- --- EPI ID CSN Admitting Provider [id number] Dain Sanford MD([id number])Surgical Discharge SummaryTatianna SotoMRN: [id number] date: 02/05/2020Admitting Physician: TIMA Borregoischarge date and [...] 01/24/2020 Added automatically from request for surgery [id number] Peripheral vascular disease 11/20/2019 Coronary artery disease involving choctaw coronary artery of choctaw heartwithout angina pectoris 05/11/2019 Heavy cigarette smoker [...] Take 325 mg by mouth daily with /31lisinopril 5 MG tabletCommonly known as: PRINIVIL,ZESTRIL Take [...] Get Your MedicationsThese medications were sent to [facility] - [facility], [place] - [address] [place] [address] Chlorhexidine Gluconate (Dressing) Misc heparin 100 UNIT/ML Soln meropenem 1 g injection normal saline flush 0.9 % Soln injectionThese medications were sent to [facility] - [place], [place] - [address] [address] ASPIRIN ADULT 325 MG tablet bisacodyl 10 [...] ARTERIAL, FEMORAL TO POPLITEAL, LEFT (Left)Significant Diagnostic Studies:[address] [address]Qputomp Name: Tatianna SotoDONALD: 1965Sex: FOrdering Provider: HAYLEE FLANNERYuthorizing Prov: HAYLEE Castro Provider:Procedure Performed: MRI LOW EXT NO JNT WO CONTRAST LEFTExam Date: 02/08/2020 15:20MRN: [id number] Number: [id number] Class: PROCEDURE INFORMATION:Exam: MR Left Lower Extremity [...] by: ANDRE ROLDAN MD on 02/08/2020 16:32:59St. [address] [address]Pqvqqio Name: Tatianna MccarthyB: 1965Sex: FOrdering Provider: HAYLEE FLANNERYuthorieldon Prov: HAYLEE Lozadaferjudy Provider:Procedure Performed: MRI LOW EXT NO JNT WO CONTRAST RIGHTExam Date: 02/06/2020 20:23MRN: [id number] Number: [id number] Class: PROCEDURE INFORMATION:Exam: MR Right Lower Extremity [...] the 5th metatarsal stump on STIR and [id number] images. There are residual phalanges of the [...] by: ALEXANDRO FARR MD on 02/06/2020 22:43:[address] [address]Jnygunu Name: TATIANNA SOTODOB: 1965Sex: FOrdering Provider: EMIL Caruso Prov: EMIL Felix Provider:Procedure Performed: CT ANGIOGRAM ABDOMINAL AORTA AND BILATERAL RUNOFFExam Date: 02/05/2020 09:25MRN: [id number] Number: [id number] Class: InpatientAccount #: [id number] Reason for Exam: Arterial embolism, lower extremity [...] her wires removed.Heart: Regular rate and rhythm S1-V9Khcrz: CTA bilaterally throughout without wheezes rales or [...] ID office follow-up: In 3 weeks with FORESTRY HUNTER Other physicians involved: Dr. Sanford, (podiatry in [place]) Notes for ID provider use:54-year-old female with history of COPD, GERD, HTN, CAD with bypass, HLD, typeII DM with peripheral neuropathy, PAD with claudication, bilateral foot woundsfollows at wound care in [place]. Underwent right fifth metatarsal resectionin September with access services assistant, Dr. Mccarty in [place]. Then in December a left heelbiopsy that showed osteomyelitis. Wound culture at that time also grewpseudomonas, unclear whether she received any antibiotic treatment for this. Transferred from [facility] with acute right foot and calf [...] outpatient left heel bone biopsy with acute HWTVOYT00/21 right fifth toe culture with Peptostreptococcus species and gram-positivecocci on Gram stain.02/05 right lower extremity MRI osteomyelitis fourth and fifth toes andmetatarsal heads Carolyn Salas NP Discharged Condition:stableDisposition: Home or Self CareSignature: Haylee Barba, PADate: February 16, 2020Time: 2:44 PM Name Value Range Interpretation Code Description Data Tisha rce(s) Supporting Document(s) ID Date Data Source [id number] 02/19/2020 01:10:00 PM EST [facility] ([facility]) Name Value Range Interpretation Code Description [...] 11 mg/dL 7-24 [facility] ([facility]) Carbon dioxide, total [Moles/volume] in Serum or Plasma 32 mmol/L 22 -31 [facility] ([facility]) Anion gap in Serum or Plasma 7 mmol/L 7-16 [facility] ([facility]) Glucose [Mass/volume] in Serum or Plasma 193 mg/dL 70-99 [facility] ([facility]) Creatinine [Mass/volume] in Serum or Plasma 0.60 mg/dL 0.60-1.00 [facility] ([facility]) Urea nitrogen/Creatinine [Mass Ratio] in Serum or Plasma 18.3 1 0.0-20.0 [facility] ([facility]) Glomerular filtration rate/1.73 sq M pre dicted among non-blacks [Volume Rate/Area] in Serum or Plasma by Creatinine-based formula (MDRD) Laboratory test result [facility] ([facility]) Glomerular filtration rate/1.73 sq M pre dicted among blacks [Volume Rate/Area] in Serum or Plasma by Creatinine-based formula (MDRD) Laboratory test result [facility] ([facility]) Calcium [Mass/volume] in Serum or Plasma 8.9 mg/dL 8.4-10.2 [facility] ([facility]) Glomerular filtration rate/1.73 sq M pre dicted among non-blacks [Volume Rate/Area] in Serum or Plasma by Creatinine-based formula (MDRD) Laboratory test result [facility] ([facility]) -- NORMAL KIDNEY FUNCTION OR MILD DISEASE - GFR >OR= 60 CHRONIC KIDNEY DISEASE - GFR 15 - 59 RENAL FAILURE - GFR <15 Est. GFR calculation based on the MDRD study equation, which assumes a steady state for creatinine. Est. GFR should not be used for medication dosing. ID Date Data Source [id number] 02/19/2020 12:08:31 PM EST [facility] [place] kylie CEDILLO Name Value Range Interpretation Code Description Data Tisha rce(s) Supporting Document(s) POC NOVA GLU 317 mg/dL (70-99) H Lab [place] PERFORMED BY [facility] CLINICAL STAFF ID Date Data Source [id number] 02/19/2020 07:42:28 AM EST [facility] [place] [facility] [place] Name Value Range Interpretation Code Description Data Tisha rce(s) Supporting Document(s) POC NOVA GLU 231 mg/dL (70-99) H [facility] [place] [facility] [place] PERFORMED BY [facility] CLINICAL STAFF ID Date Data Source [id number] 02/19/2020 08:10:37 AM EST [facility] [place] [facility] [place] Name Value Range Interpretation Code Description Data Tisha rce(s) Supporting Document(s) SODIUM 144 mmol/L (136-145) [facility] [place] [facility] [place] POTASSIUM 4.1 mmol/L (3.6-5.2) [facility] [place] [facility] [place] CHLORIDE 105 mmol/L (100-108) [facility] [place] [facility] [place] CO2 32 mmol/L (22-31) H [facility] [place] [facility] [place] ANION GAP 7 mmol/L (7-16) [facility] [place] [facility] [place] UREA NITROGEN 11 mg/dL (7-24) [facility] [place] [facility] [place] CREATININE 0.60 mg/dL (0.60-1.00) [facility] [place] [facility] [place] BUN/CREAT RATIO 18.3 RATIO (10.0-20.0) [facility] [place] [place] GLUCOSE 193 mg/dL (70-99) H [facility] [place] [facility] [place] CALCIUM 8.9 mg/dL (8.4-10.2) [facility] [place] [facility] [place] GFR >60 ml/min/1.73m2 (>59) [facility] [place] [facility] [place] GFR ( AMER) >60 ml/min/1.73m2 (>59) [facility] [place] [facility] GFR INTERPRETATION [facility] [place] --NORMAL KIDNEY FUNCTION OR MILD DISEASE - GFR >OR= 60CHRONIC KIDNEY DISEASE - GFR 15 - 59RENAL FAILURE - GFR <15 Est. GFR calculation based on the MDRDstudy equation, which assumes a steadystate for creatinine. Est. GFR should notbe used for medication dosing. ID Date Data Source [id number] 02/19/2020 01:01:00 AM EST [facility] ([facility]) Name Value Range Interpretation Code Description Data Tisha rce(s) Supporting Document(s) Est. Average Glucose 192 mg/dL [facility] ([facility]) Hemoglobin A1c/Hemoglobin.total in Blood 8.3 % 4.0-6.0 [facility] ([facility]) Performed using Siemens Hampton immunoassa y. Care must be taken when interpreting HbA1c results in patients with a hemoglobin variant or decreased erythrocyte lifespan. Values 5.7 - 6.4% suggest prediabetes. Values >=6.5% are diagnostic for diabetes. REFERENCE: DIABETES CARE 2018: 41(S13-S27). PERFORMED AT [address] [place] [address] ID Date Data Source [id number] 02/18/2020 07:31:11 PM EST [facility] [place] [facility] Name Value Range Interpretation Code Description Data Tisha rce(s) Supporting Document(s) POC NOVA GLU 262 mg/dL (70-99) H [facility] [place] [facility] PERFORMED BY [facility] CLINICAL STAFF ID Date Data Source [id number] 02/18/2020 08:02:30 PM EST [facility] [place] [facility] Name Value Range Interpretation Code Description Data Tisha rce(s) Supporting Document(s) HEMOGLOBIN A1C @ 8.3 % (4.0-6.0) H [facility] [place] [facility] Performed using Siemens Hampton immunoassa y.Care must be taken when interpreting CrH3bsatrykh in patients with a hemoglobin variantor decreased erythrocyte lifespan. Values 5.7 - 6.4% suggest prediabetes.Values >=6.5% are diagnostic for diabetes.REFERENCE: DIABETES CARE 2018: 41(S13-S27).PERFORMED AT [address] [place] [address] EST AVERAGE GLUCOSE 192 mg/dL Lab [place] [facility] ID Date Data Source [id number] 02/18/2020 06:56:55 PM EST [facility] [place] [facility] Name Value Range Interpretation Code Description Data Tisha rce(s) Supporting Document(s) WBC 10.1 10*3/uL (4.1-11.0) [facility] [place] [facility] RBC 3.74 10*6/uL (4.00-5.40) L [facility] [place] [facility] HGB 10.3 g/dL (12.0-16.0) L [place] [facility] HCT 31.4 % (36.0-47.0) L [facility] [place] [facility] [place] MCV 83.9 fL (80.0-95.0) [facility] [place] [facility] [place] MCH 27.6 pg (27.0-32.0) [facility] [place] [facility] [place] MCHC 32.9 g/dL (32.0-36.0) [facility] [place] [facility] [place] RDW 16.0 % (10.5-14.5) H [facility] [place] [facility] [place] PLT 469 10*3/uL (150-450) H [facility] [place] [facility] [place] MPV 8.1 fL (7.1-10.7) [facility] [place] [facility] ID Date Data Source [id number] 02/18/2020 06:13:50 PM EST [facility] [place] [facility] Name Value Range Interpretation Code Description Data Tisha rce(s) Supporting Document(s) POC NOVA GLU 127 mg/dL (70-99) H [facility] [place] [facility] CLINICAL STAFF ID Date Data Source [id number] 02/18/2020 06:13:45 PM EST [facility] [place] [facility] [place] Name Value Range Interpretation Code Description Data Tisha rce(s) Supporting Document(s) POC NOVA GLU 69 mg/dL (70-99) L [facility] [place] [facility] [place] [facility] CLINICAL STAFF ID Date Data Source [id number] 02/18/2020 06:13:40 PM EST [facility] [place] [facility] [place] Name Value Range Interpretation Code Description Data Tisha rce(s) Supporting Document(s) POC NOVA GLU 48 mg/dL (70-99) LL [facility] [place] [facility] CLINICAL STAFF ID Date Data Source [id number] 02/18/2020 04:55:12 PM EST [facility] [place] [facility] [place] Name Value Range Interpretation Code Description Data Tisha rce(s) Supporting Document(s) POC NOVA GLU 43 mg/dL (70-99) LL [facility] [place] [facility] CLINICAL STAFF ID Date Data Source [id number] 02/16/2020 11:32:00 AM EDT [facility] ([facility]) Name Value Range Interpretation Code Description Data Tisha rce(s) Supporting Document(s) Laboratory test finding (navigational concept) 315 mg/dL 70-99 [facility] ([facility]) PERFORMED BY [facility] CLINICAL STAFF ID Date Data Source [id number] 02/16/2020 07:32:56 AM EDT [facility] [place] [facility] [place] Name Value Range Interpretation Code Description Data Tihsa rce(s) Supporting Document(s) POC NOVA GLU 315 mg/dL (70-99) H [facility] [place] [facility] CLINICAL STAFF ID Date Data Source [id number] 02/15/2020 05:13:38 PM EDT [facility] [place] [facility] [place] Name Value Range Interpretation Code Description Data Tisha rce(s) Supporting Document(s) POC NOVA GLU 265 mg/dL (70-99) H [facility] [place] [facility] CLINICAL STAFF ID Date Data Source [id number] 02/15/2020 12:25:02 PM EDT [facility] [place] [facility] [place] Name Value Range Interpretation Code Description Data Tisha rce(s) Supporting Document(s) POC NOVA GLU 318 mg/dL (70-99) H [facility] [place] [facility] CLINICAL STAFF ID Date Data Source [id number] 02/15/2020 11:03:00 AM EDT [facility] ([facility]) Name Value Range Interpretation Code Description Data Tisha rce(s) Supporting Document(s) Potassium [Moles/volume] in Serum or Plasma 4.3 mmol/L 3.6-5.2 [facility] ([facility]) Chloride [Moles/volume] in Serum or Plasma 107 mmol/L 100-108 [facility] ([facility]) Sodium [Moles/volume] in Serum or Plasma 142 mmol/L 136-145 [facility] ([facility]) Anion gap in Serum or Plasma 2 mmol/L 7-16 [facility] ([facility]) Carbon dioxide, total [Moles/volume] in Serum or Plasma 33 mmol/L 22 -31 [facility] ([facility]) Urea nitrogen [Mass/volume] in Serum or Plasma 18 mg/dL 7-24 [facility] ([facility]) Creatinine [Mass/volume] in Serum or Plasma 0.61 mg/dL 0.60-1.00 [facility] ([facility]) Urea nitrogen/Creatinine [Mass Ratio] in Serum or Plasma 29.5 1 0.0-20.0 [facility] ([facility]) Glucose [Mass/volume] in Serum or Plasma 224 mg/dL 70-99 [facility] ([facility]) Calcium [Mass/volume] in Serum or Plasma 8.6 mg/dL 8.4-10.2 [facility] ([facility]) Glomerular filtration rate/1.73 sq M pre dicted among blacks [Volume Rate/Area] in Serum or Plasma by Creatinine-based formula (MDRD) Laboratory test result [facility] ([facility]) Glomerular filtration rate/1.73 sq M pre dicted among non-blacks [Volume Rate/Area] in Serum or Plasma by Creatinine-based formula (MDRD) Laboratory test result [facility] ([facility]) Glomerular filtration rate/1.73 sq M pre dicted among non-blacks [Volume Rate/Area] in Serum or Plasma by Creatinine-based formula (MDRD) Laboratory test result [facility] ([facility]) -- NORMAL KIDNEY FUNCTION OR MILD DISEASE - GFR >OR= 60 CHRONIC KIDNEY DISEASE - GFR 15 - 59 RENAL FAILURE - GFR <15 Est. GFR calculation based on the MDRD study equation, which assumes a steady state for creatinine. Est. GFR should not be used for medication dosing. ID Date Data Source [id number] 02/15/2020 09:46:00 AM EDT [facility] Name Value Range Interpretation Code Description Data Tisha rce(s) Supporting Document(s) Hemoglobin [Mass/volume] in Blood 9.2 g/dL 12.0-16.0 [facility] ([facility]) Leukocytes [#/volume] in Blood by Automated count 10.3 10*3/uL 4.1-11 .0 [facility] ([facility]) Erythrocytes [#/volume] in Blood by Automated count 3.33 10*6/uL 4.00 -5.40 [facility] ([facility]) Hematocrit [Volume Fraction] of Blood by Automated count 27.8 % 3 6.0-47.0 [facility] ([facility]) Erythrocyte mean corpuscular hemoglobin [Entitic mass] [...] [facility]) ID Date Data Source [id number] 02/15/2020 08:48:59 AM EDT [facility] [place] [facility] [place] Name Value Range Interpretation Code Description Data Tisha rce(s) Supporting Document(s) POC NOVA GLU 239 mg/dL (70-99) H [facility] [place] [facility] CLINICAL STAFF ID Date Data Source [id number] 02/15/2020 07:03:38 AM EDT [facility] [place] [facility] [place] Name Value Range Interpretation Code Description Data Tisha rce(s) Supporting Document(s) SODIUM 142 mmol/L (136-145) [facility] [place] [facility] [place] POTASSIUM 4.3 mmol/L (3.6-5.2) [facility] [place] [facility] [place] CHLORIDE 107 mmol/L (100-108) [facility] [place] [facility] [place] CO2 33 mmol/L (22-31) H [facility] [place] [facility] [place] ANION GAP 2 mmol/L (7-16) L [facility] [place] [facility] [place] UREA NITROGEN 18 mg/dL (7-24) [facility] [place] [facility] [place] CREATININE 0.61 mg/dL (0.60-1.00) [facility] [place] [facility] [place] BUN/CREAT RATIO 29.5 RATIO (10.0-20.0) H [facility] [place] GLUCOSE 224 mg/dL (70-99) H [facility] [place] [facility] [place] CALCIUM 8.6 mg/dL (8.4-10.2) [facility] [place] [facility] [place] GFR >60 ml/min/1.73m2 (>59) [facility] [place] [facility] [place] GFR ([facility]) >60 ml/min/1.73m2 (>59) [facility] [place] [facility] [place] GFR INTERPRETATION [facility] --NORMAL KIDNEY FUNCTION OR MILD DISEASE - GFR >OR= 60CHRONIC KIDNEY DISEASE - GFR 15 - 59RENAL FAILURE - GFR <15 Est. GFR calculation based on the MDRDstudy equation, which assumes a steadystate for creatinine. Est. GFR should notbe used for medication dosing. ID Date Data Source [id number] 02/15/2020 05:47:32 AM EDT [facility] [place] [facility] [place] Name Value Range Interpretation Code Description Data Tisha rce(s) Supporting Document(s) WBC 10.3 10*3/uL (4.1-11.0) [facility] [place] [facility] [place] RBC 3.33 10*6/uL (4.00-5.40) L [facility] [place] [facility] [place] HGB 9.2 g/dL (12.0-16.0) L [facility] [place] [facility] [place] HCT 27.8 % (36.0-47.0) L [facility] [place] [facility] [place] MCV 83.5 fL (80.0-95.0) [facility] [place] [facility] [place] MCH 27.6 pg (27.0-32.0) [facility] [place] [facility] [place] MCHC 33.1 g/dL (32.0-36.0) [facility] [place] [facility] [place] RDW 16.1 % (10.5-14.5) H [facility] [place] [facility] [place] PLT 295 10*3/uL (150-450) [facility] [place] [facility] [place] MPV 8.4 fL (7.1-10.7) [facility] [place] [facility] [place] ID Date Data Source [id number] 02/14/2020 06:16:36 PM EDT [facility] [place] [facility] Name Value Range Interpretation Code Description Data Tisha rce(s) Supporting Document(s) POC NOVA GLU 156 mg/dL (70-99) H [facility] [place] [facility] CLINICAL STAFF ID Date Data Source [id number] 02/14/2020 01:03:00 PM EDT [facility] [place] [facility] [place] Name Value Range Interpretation Code Description Data Tisha rce(s) Supporting Document(s) POC NOVA GLU 285 mg/dL (70-99) H [facility] [place] [facility] CLINICAL STAFF ID Date Data Source [id number] 02/14/2020 09:03:27 AM EDT [facility] [place] [facility] [place] Name Value Range Interpretation Code Description Data Tisha rce(s) Supporting Document(s) POC NOVA GLU 263 mg/dL (70-99) H [facility] [place] [facility] CLINICAL STAFF ID Date Data Source [id number] 02/14/2020 06:16:22 AM EDT [facility] [place] [facility] [place] Name Value Range Interpretation Code Description Data Tisha rce(s) Supporting Document(s) SODIUM 141 mmol/L (136-145) [facility] [place] [facility] [place] POTASSIUM 4.2 mmol/L (3.6-5.2) [facility] [place] [facility] [place] CHLORIDE 106 mmol/L (100-108) [facility] [place] [facility] [place] CO2 30 mmol/L (22-31) [facility] [place] [facility] [place] ANION GAP 5 mmol/L (7-16) L [facility] [place] [facility] [place] UREA NITROGEN 18 mg/dL (7-24) [facility] [place] [facility] [place] CREATININE 0.62 mg/dL (0.60-1.00) [facility] [place] [facility] [place] BUN/CREAT RATIO 29.0 RATIO (10.0-20.0) H [facility] GLUCOSE 250 mg/dL (70-99) H [facility] [place] [facility] [place] CALCIUM 8.5 mg/dL (8.4-10.2) [facility] [place] [facility] GFR >60 ml/min/1.73m2 (>59) [facility] [place] [facility] [place] GFR ( AMER) >60 ml/min/1.73m2 (>59) [facility] [place] [facility] GFR INTERPRETATION [facility] --NORMAL KIDNEY FUNCTION OR MILD DISEASE - GFR >OR= 60CHRONIC KIDNEY DISEASE - GFR 15 - 59RENAL FAILURE - GFR <15 Est. GFR calculation based on the MDRDstudy equation, which assumes a steadystate for creatinine. Est. GFR should notbe used for medication dosing. ID Date Data Source [id number] 02/14/2020 05:46:26 AM EDT [facility] [place] [facility] Name Value Range Interpretation Code Description Data Tisha rce(s) Supporting Document(s) WBC 10.4 10*3/uL (4.1-11.0) [facility] [place] [facility] RBC 3.38 10*6/uL (4.00-5.40) L [facility] [place] [facility] HGB 9.5 g/dL (12.0-16.0) L [facility] [place] [facility] HCT 27.9 % (36.0-47.0) L [facility] [place] [facility] MCV 82.7 fL (80.0-95.0) [facility] [place] [facility] MCH 28.1 pg (27.0-32.0) [facility] [place] [facility] MCHC 34.0 g/dL (32.0-36.0) [facility] RDW 16.0 % (10.5-14.5) H [facility] PLT 287 10*3/uL (150-450) [facility] MPV 8.6 fL (7.1-10.7) [facility] [place] ID Date Data Source [id number] 02/14/2020 04:33:00 AM EDT [facility] Name Value Range Interpretation Code Description Data Tisha rce(s) Supporting Document(s) Specimen Expiration Date Laboratory test result MEDENT ([facility]) Patient Abo/Rh Laboratory test result ME ANY ([facility]) Antibody Screen Laboratory test result M BERLIN ([facility]) Blood product unit ID [#] Laboratory test result MEDENT ([facility]) Blood bank comment Laboratory test result MEDENT ([facility]) BLOOD TYPE CONFIRMED. Testing site Laboratory test result MEDE NT ([facility]) Blood product unit ID [#] 0 MEDE NT ([facility]) Blood Component Type Laboratory test result MEDENT ([facility]) Laboratory test finding (navigational concept) Laboratory test result MEDENT ([facility]) Blood product unit ID [#] Laboratory test result MED[facility] ([facility]) Crossmatch Laboratory test result MED[facility] ([facility]) Transfusion status Laboratory test result MED[facility] ([facility]) Laboratory test finding (navigational concept) Laboratory test result MEDENT ([facility]) Blood product unit ID [#] 0 MEDE NT ([facility]) Blood Component Type Laboratory test result MED[facility] ([facility]) Crossmatch Laboratory test result MED[facility] ([facility]) Transfusion status Laboratory test result MED[facility] ([facility]) ID Date Data Source [id number] 02/13/2020 05:54:11 PM EDT [facility] [place] [facility] Name Value Range Interpretation Code Description Data Tisha rce(s) Supporting Document(s) POC NOVA GLU 216 mg/dL (70-99) H [facility] [place] Duarte [facility] PERFORMED BY [facility] CLINICAL STAFF ID Date Data Source [id number] 02/13/2020 12:54:38 PM EDT [facility] INFORMATIONPatient MRN Name Date of Age Gend*PT [id number] Tatianna Soto 1965 54 years F IPPT Location Admission Date/Time Visit ID Attending [id number] 02/05/20 0417 --- Dain Sanford MD([id number]) EPI ID CSN Admitting Provider [id number] Dain Sanford MD([id number]) [place] [address] OPERATIVE REPORT OPNAME: TATIANNA SOTO#: [id number] #: [id number] ADMISSION DATE: 02/05/2020DOB: [birth year] SEX: F PT TYPE: I VascACCT #: [id number] CARE PHYSICIAN: TOM CORONADO-SURBEDATE OF OPERATION: 02/12/2020PREOPERATIVE [...] portions of the procedure.BETZY Borrego/CARMINE Job #: [id number] DOC #: [id number] Name Value Range Interpretation Code Description Data Tisha rce(s) Supporting Document(s) ID Date Data Source [id number] 02/13/2020 12:21:31 PM EDT [facility] [place] [facility] Name Value Range Interpretation Code Description Data Tisha rce(s) Supporting Document(s) POC NOVA GLU 156 mg/dL (70-99) H [facility] [place] [facility] [place] [facility] CLINICAL STAFF ID Date Data Source [id number] 02/13/2020 09:28:58 AM EDT [facility] [place] [facility] Name Value Range Interpretation Code Description Data Tisha rce(s) Supporting Document(s) POC NOVA GLU 214 mg/dL (70-99) H [facility] [place] [facility] [place] [facility] CLINICAL STAFF ID Date Data Source [id number] 02/13/2020 08:50:29 AM EDT [facility] [place] [facility] Name Value Range Interpretation Code Description Data Tisha rce(s) Supporting Document(s) POC NOVA GLU 187 mg/dL (70-99) H [facility] [place] [facility] [place] [facility] CLINICAL STAFF ID Date Data Source [id number] 02/13/2020 06:31:13 AM EDT [facility] [place] [facility] Name Value Range Interpretation Code Description Data Tisha rce(s) Supporting Document(s) SODIUM 141 mmol/L (136-145) [facility] [place] [facility] POTASSIUM 4.0 mmol/L (3.6-5.2) [facility] [place] [facility] CHLORIDE 106 mmol/L (100-108) [facility] [place] [facility] CO2 32 mmol/L (22-31) H [facility] [place] [facility] ANION GAP 3 mmol/L (7-16) L [facility] [place] [facility] UREA NITROGEN 17 mg/dL (7-24) [facility] [place] [facility] CREATININE 0.77 mg/dL (0.60-1.00) [facility] [place] [facility] BUN/CREAT RATIO 22.1 RATIO (10.0-20.0) H [facility] GLUCOSE 179 mg/dL (70-99) H [facility] [place] [facility] CALCIUM 8.2 mg/dL (8.4-10.2) L [facility] [place] [facility] GFR >60 ml/min/1.73m2 (>59) [facility] [place] [facility] GFR ( AMER) >60 ml/min/1.73m2 (>59) [facility] [place] [facility] GFR INTERPRETATION [facility] --NORMAL KIDNEY FUNCTION OR MILD DISEASE - GFR >OR= 60CHRONIC KIDNEY DISEASE - GFR 15 - 59RENAL FAILURE - GFR <15 Est. GFR calculation based on the MDRDstudy equation, which assumes a steadystate for creatinine. Est. GFR should notbe used for medication dosing. ID Date Data Source [id number] 02/13/2020 06:06:49 AM EDT [facility] [place] [facility] Name Value Range Interpretation Code Description Data Tisha rce(s) Supporting Document(s) WBC 11.5 10*3/uL (4.1-11.0) H [facility] [place] [facility] RBC 3.36 10*6/uL (4.00-5.40) L [facility] [place] [facility] HGB 9.2 g/dL (12.0-16.0) L [facility] [place] [facility] HCT 28.1 % (36.0-47.0) L [facility] [place] [facility] MCV 83.6 fL (80.0-95.0) [facility] [place] [facility] MCH 27.5 pg (27.0-32.0) [facility] MCHC 32.8 g/dL (32.0-36.0) [facility] [place] [facility] RDW 16.0 % (10.5-14.5) H [facility] [place] [facility] PLT 269 10*3/uL (150-450) [facility] MPV 8.4 fL (7.1-10.7) [facility] [place] ID Date Data Source [id number] 02/12/2020 08:04:33 PM EDT [facility] [place] Name Value Range Interpretation Code Description Data Tisha rce(s) Supporting Document(s) POC NOVA GLU 143 mg/dL (70-99) H [facility] [place] [facility] [place] [facility] CLINICAL STAFF ID Date Data Source [id number] 02/12/2020 05:48:09 PM EDT [facility] [place] [facility] Name Value Range Interpretation Code Description Data Tisha rce(s) Supporting Document(s) POC NOVA GLU 160 mg/dL (70-99) H [facility] [place] [facility] [place] [facility] CLINICAL STAFF ID Date Data Source [id number] 02/12/2020 02:47:59 PM EDT [facility] NT INFORMATIONPatient MRN Name Date of Age Gend*PT [id number] Tatianna Soto 1965 54 years F IPPT Location Admission Date/Time Visit ID Attending Provider --- --- --- --- EPI ID CSN Admitting Provider [id number] ---AirwayPatient location during procedure: ORUrgency: electiveDifficult airway: [...] to lips: 21 cmPlacement verified by: + [id number] view: grade I - full view of glottis Name Value Range Interpretation Code Description Data Tisha rce(s) Supporting Document(s) ID Date Data Source [id number] 02/12/2020 12:49:35 PM EDT [facility] [place] [facility] [place] Name Value Range Interpretation Code Description Data Tisha rce(s) Supporting Document(s) POC NOVA GLU 232 mg/dL (70-99) H [facility] [place] [facility] [place] [facility] CLINICAL STAFF ID Date Data Source [id number] 02/12/2020 02:38:33 PM EDT [facility] [place] [facility] Name Value Range Interpretation Code Description Data Tisha rce(s) Supporting Document(s) POC NOVA GLU 229 mg/dL (70-99) H [facility] [place] [facility] [place] [facility] CLINICAL STAFF ID Date Data Source [id number] 02/12/2020 09:14:58 AM EDT [facility] [place] [facility] Name Value Range Interpretation Code Description Data Tisha rce(s) Supporting Document(s) POC NOVA GLU 233 mg/dL (70-99) H [facility] [place] [facility] [place] [facility] CLINICAL STAFF ID Date Data Source [id number] 02/12/2020 05:55:00 AM EDT [facility] ([facility]) Name Value Range Interpretation Code Description Data Tisha rce(s) Supporting Document(s) Laboratory test finding (navigational concept) Laboratory test result [facility] ([facility]) THIS ASSAY AMPLIFIES AND DETECTS THE [...] VIRUS THAT CAUSES COVID-19. EMAILED RESULTS TO [facility] AT [phone] AD [phone]. [phone] Employed In [facility] Laboratory test result MEDENT ([facility] [...] test result [facility] ([facility]) [facility] Laboratory test result [facility] ([facility]) ID Date Data Source [id number] 02/12/2020 04:42:48 AM EDT [facility] [place] [facility] Name Value Range Interpretation Code Description Data Tisha rce(s) Supporting Document(s) SODIUM 140 mmol/L (136-145) [facility] [place] [facility] POTASSIUM 4.3 mmol/L (3.6-5.2) [facility] [place] [facility] CHLORIDE 103 mmol/L (100-108) [facility] [place] [facility] CO2 30 mmol/L (22-31) [facility] [place] [facility] ANION GAP 7 mmol/L (7-16) [facility] [place] [facility] UREA NITROGEN 19 mg/dL (7-24) [facility] [place] [facility] CREATININE 0.82 mg/dL (0.60-1.00) [facility] [place] [facility] BUN/CREAT RATIO 23.2 RATIO (10.0-20.0) H [facility] GLUCOSE 284 mg/dL (70-99) H [facility] [place] [facility] CALCIUM 8.3 mg/dL (8.4-10.2) L [facility] [place] [facility] GFR >60 ml/min/1.73m2 (>59) [facility] [place] [facility] GFR ( AMER) >60 ml/min/1.73m2 (>59) [facility] [place] [facility] [place] GFR INTERPRETATION [facility] --NORMAL KIDNEY FUNCTION OR MILD DISEASE - GFR >OR= 60CHRONIC KIDNEY DISEASE - GFR 15 - 59RENAL FAILURE - GFR <15 Est. GFR calculation based on the MDRDstudy equation, which assumes a steadystate for creatinine. Est. GFR should notbe used for medication dosing. ID Date Data Source [id number] 02/12/2020 04:03:40 AM EDT [facility] [place] Name Value Range Interpretation Code Description Data Tisha rce(s) Supporting Document(s) WBC 10.1 10*3/uL (4.1-11.0) [facility] [place] [facility] [place] RBC 3.86 10*6/uL (4.00-5.40) L [facility] [place] [facility] [place] HGB 10.6 g/dL (12.0-16.0) L [facility] [place] [facility] HCT 31.5 % (36.0-47.0) L [facility] [place] [facility] MCV 81.6 fL (80.0-95.0) [facility] [place] [facility] MCH 27.4 pg (27.0-32.0) [facility] [place] [facility] MCHC 33.6 g/dL (32.0-36.0) [facility] [place] [facility] RDW 16.0 % (10.5-14.5) H [facility] [place] [facility] PLT 269 10*3/uL (150-450) [facility] [place] [facility] [place] [facility] MPV 8.3 fL (7.1-10.7) [facility] [place] [facility] ID Date Data Source [id number] 02/12/2020 12:00:00 AM EDT [facility] kylie CEDILLO Name Value Range Interpretation Code Description Data Tisha rce(s) Supporting Document(s) SARS coronavirus 2 RNA [Presence] in Res piratory specimen by CHLOE with probe detection [facility] [place] [facility] This lab was reported by [facility] [place] [facility]. ID Date Data Source [id number] 02/12/2020 02:00:35 AM EDT [facility] [place] kylie CEDILLO Name Value Range Interpretation Code Description Data Tisha rce(s) Supporting Document(s) SPECIMEN DESCRIPTION [facility] COVID19 RESULT (NDET) [facility] [place] [facility] THIS ASSAY AMPLIFIES AND DETECTSTHE TARG ET RNA USING REAL-TIME PCR.NEGATIVE 2019_NCOV RT-PCR RESULTS DONOT PRECLUDE 2019_NCOV INFECTION ANDSHOULD NOT BE USED THE SOLE BASISFOR PATIENT MANAGEMENT DECISIONS. COMMENT [facility] [place] [facility] UNDER AN EMERGENCY USE AUTHORIZATION(EUA ) FOR THE DETECTION AND/OR DIAGNOSISOF THE VIRUS THAT CAUSES COVID-19.EMAILED RESULTS TO [facility] AT 0054 EU [id number]. [id number] FIRST TEST [facility] [place] [facility] [employer] [employer] [employer] [facility] SYMPTOMATIC [facility] [place] [facility] [place] Smith DATE OF SYMPT ONSET [facility] HOSPITALIZED [facility] [place] [facility] [place] [facility] ICU [facility] [place] [facility] CONGREGATE CARE SET [facility] [place] [facility] ID Date Data Source [id number] 02/11/2020 11:57:13 PM EDT [facility] [place] kylie CEDILLO Name Value Range Interpretation Code Description Data Tisha rce(s) Supporting Document(s) POC NOVA GLU 290 mg/dL (70-99) H [facility] [place] [facility] [place] [facility]FOR[facility] BY [facility] CLINICAL STAFF ID Date Data Source [id number] 02/11/2020 04:54:06 PM EDT [facility] [place] kylie CEDILLO Name Value Range Interpretation Code Description Data Tisha rce(s) Supporting Document(s) POC NOVA GLU 287 mg/dL (70-99) H [facility] [place] [facility] [place] [facility] CLINICAL STAFF ID Date Data Source [id number] 02/11/2020 04:19:00 PM EDT [facility] ([facility]) Name Value Range Interpretation Code Description Data Tisha rce(s) Supporting Document(s) Laboratory test finding (navigational concept) Laboratory test result [facility] ([facility]) Special Requests Laboratory test result [facility] ([facility]) Specimen Description Laboratory test result [facility] ([facility]) Report Status Laboratory test result MED ENT ([facility]) ID Date Data Source [id number] 02/11/2020 02:14:58 PM EDT [facility] [place] [facility] Name Value Range Interpretation Code Description Data Tisha rce(s) Supporting Document(s) POC NOVA GLU 297 mg/dL (70-99) H [facility] [place] [facility] [place] [facility] CLINICAL STAFF ID Date Data Source [id number] 02/11/2020 10:33:00 AM EDT [facility] ([facility]) Name Value Range Interpretation Code Description Data Tisha rce(s) Supporting Document(s) Vancomycin [Mass/volume] in Serum or Plasma --trough 16.5 ug/mL 10.0- 20.0 [facility] ([facility]) ID Date Data Source [id number] 02/11/2020 10:30:00 AM EDT [facility] ([facility]) Name Value Range Interpretation Code Description Data Tisha rce(s) Supporting Document(s) Magnesium [Mass/volume] in Serum or Plasma 1.9 mg/dL 1.7-2.4 [facility] ([facility]) ID Date Data Source [id number] 02/11/2020 08:57:29 AM EDT [facility] [place] [facility] [place] Name Value Range Interpretation Code Description Data Tisha rce(s) Supporting Document(s) POC NOVA GLU 223 mg/dL (70-99) H [facility] [place] [facility] [place] [facility] CLINICAL STAFF ID Date Data Source [id number] 02/11/2020 06:34:06 AM EDT [facility] [place] [facility] [place] Name Value Range Interpretation Code Description Data Tisha rce(s) Supporting Document(s) VANCOMYCIN TROUGH 16.5 ug/mL (10.0-20.0) [facility] ID Date Data Source [id number] 02/11/2020 06:31:31 AM EDT [facility] [place] [facility] [place] Name Value Range Interpretation Code Description Data Tisha rce(s) Supporting Document(s) MAGNESIUM 1.9 mg/dL (1.7-2.4) [facility] [place] [facility] ID Date Data Source [id number] 02/11/2020 06:31:31 AM EDT [facility] [place] [facility] [place] Name Value Range Interpretation Code Description Data Tisha rce(s) Supporting Document(s) SODIUM 141 mmol/L (136-145) [facility] [place] [facility] POTASSIUM 4.2 mmol/L (3.6-5.2) [facility] [place] [facility] CHLORIDE 107 mmol/L (100-108) [facility] [place] [facility] CO2 29 mmol/L (22-31) [facility] [place] [facility] ANION GAP 5 mmol/L (7-16) L [facility] [place] [facility] UREA NITROGEN 19 mg/dL (7-24) [facility] [place] [facility] CREATININE 0.76 mg/dL (0.60-1.00) [facility] [place] [facility] BUN/CREAT RATIO 25.0 RATIO (10.0-20.0) H [facility] GLUCOSE 234 mg/dL (70-99) H [facility] [place] [facility] CALCIUM 8.2 mg/dL (8.4-10.2) L [facility] [place] [facility] GFR >60 ml/min/1.73m2 (>59) [facility] [place] [facility] GFR ( AMER) >60 ml/min/1.73m2 (>59) [facility] [place] [facility] GFR INTERPRETATION [facility] --NORMAL KIDNEY FUNCTION OR MILD DISEASE - GFR >OR= 60CHRONIC KIDNEY DISEASE - GFR 15 - 59RENAL FAILURE - GFR <15 Est. GFR calculation based on the MDRDstudy equation, which assumes a steadystate for creatinine. Est. GFR should notbe used for medication dosing. ID Date Data Source [id number] 02/11/2020 05:48:50 AM EDT [facility] [place] [facility] Name Value Range Interpretation Code Description Data Tisha rce(s) Supporting Document(s) WBC 10.2 10*3/uL (4.1-11.0) [facility] [place] [facility] RBC 3.73 10*6/uL (4.00-5.40) L [facility] [place] [facility] HGB 10.3 g/dL (12.0-16.0) L [facility] [place] [facility] HCT 30.7 % (36.0-47.0) L [facility] [place] [facility] MCV 82.2 fL (80.0-95.0) [facility] [place] [facility] MCH 27.7 pg (27.0-32.0) [facility] [place] [facility] MCHC 33.7 g/dL (32.0-36.0) [facility] [place] [facility] RDW 15.9 % (10.5-14.5) H [facility] [place] [facility] PLT 228 10*3/uL (150-450) [facility] [place] [facility] MPV 8.5 fL (7.1-10.7) [facility] [place] [facility] ID Date Data Source [id number] 02/10/2020 07:54:00 PM EDT [facility] ([facility]) Name Value Range Interpretation Code Description Data Tisha rce(s) Supporting Document(s) Special Requests Laboratory test result [facility] ([facility]) Specimen Description Laboratory test result [facility] ([facility]) Report Status Laboratory test result MED ENT ([facility]) Laboratory test finding (navigational concept) Laboratory test result [facility] ([facility]) ID Date Data Source [id number] 02/10/2020 05:16:39 PM EDT [facility] [place] [facility] Name Value Range Interpretation Code Description Data Tisha rce(s) Supporting Document(s) POC NOVA GLU 298 mg/dL (70-99) H [facility] [place] [facility] [place] [facility] CLINICAL STAFF ID Date Data Source [id number] 02/10/2020 03:27:38 PM EDT [facility] [place] [facility] Name Value Range Interpretation Code Description Data Tisha rce(s) Supporting Document(s) POC NOVA GLU 362 mg/dL (70-99) H [facility] [place] [facility] [place] [facility] CLINICAL STAFF ID Date Data Source [id number] 02/10/2020 01:12:32 PM EDT [facility] [place] [facility] Name Value Range Interpretation Code Description Data Tisha rce(s) Supporting Document(s) POC NOVA GLU 440 mg/dL (70-99) HH [facility] [place] [facility] [place] [facility] CLINICAL STAFF ID Date Data Source [id number] 02/10/2020 09:36:28 AM EDT [facility] [place] [facility] Name Value Range Interpretation Code Description Data Tisha rce(s) Supporting Document(s) POC NOVA GLU 269 mg/dL (70-99) H [facility] [place] [facility] [place] [facility] CLINICAL STAFF ID Date Data Source [id number] 02/14/2020 12:34:03 AM EDT [facility] [place] [facility] SPEC EXP DATE 02/13/2020PATI ENT ABO/Rh B NEGATIVEANTIBODY SCREEN NEGATIVETESTING SITE PERFORMED AT [address] [place] [address] [id number] BANK COMMENT BLOOD TYPE CONFIRMED.UNIT NUMBER [id number] COMPONENT TYPE LEUKOPOOR RED CELLS (PT B)UNIT DIVISION 00STATUS OF UNIT REL FROM ALLOCTRANSFUSION STATUS OK TO TRANSFUSECROSSMATCH RESULT COMPATIBLEUNIT NUMBER [id number] COMPONENT TYPE LEUKOPOOR RED CELLSUNIT DIVISION 00STATUS OF UNIT REL FROM ALLOCTRANSFUSION STATUS OK TO TRANSFUSECROSSMATCH RESULT COMPATIBLE Name Value Range Interpretation Code Description Data Tisha rce(s) Supporting Document(s) TYPE AND SCREEN [facility] [place] [facility] PATIENT ABO/Rh B NEGATIVE ID Date Data Source [id number] 02/10/2020 05:00:42 AM EDT [facility] [place] [facility] Name Value Range Interpretation Code Description Data Tisha rce(s) Supporting Document(s) MAGNESIUM 2.1 mg/dL (1.7-2.4) [facility] [place] [facility] ID Date Data Source [id number] 02/10/2020 05:00:42 AM EDT [facility] [place] [facility] Name Value Range Interpretation Code Description Data Tisha rce(s) Supporting Document(s) SODIUM 141 mmol/L (136-145) [facility] [place] [facility] POTASSIUM 4.2 mmol/L (3.6-5.2) [facility] [place] [facility] CHLORIDE 106 mmol/L (100-108) [facility] [place] [facility] CO2 29 mmol/L (22-31) [facility] [place] [facility] ANION GAP 6 mmol/L (7-16) L [facility] [place] [facility] UREA NITROGEN 19 mg/dL (7-24) [facility] [place] [facility] CREATININE 0.90 mg/dL (0.60-1.00) [facility] [place] [facility] BUN/CREAT RATIO 21.1 RATIO (10.0-20.0) H [facility] GLUCOSE 290 mg/dL (70-99) H [facility] [place] [facility] CALCIUM 8.3 mg/dL (8.4-10.2) L [facility] [place] [facility] GFR >60 ml/min/1.73m2 (>59) [facility] [place] [facility] GFR ( AMER) >60 ml/min/1.73m2 (>59) [facility] [place] [facility] GFR INTERPRETATION [facility] --NORMAL KIDNEY FUNCTION OR MILD DISEASE - GFR >OR= 60CHRONIC KIDNEY DISEASE - GFR 15 - 59RENAL FAILURE - GFR <15 Est. GFR calculation based on the MDRDstudy equation, which assumes a steadystate for creatinine. Est. GFR should notbe used for medication dosing. ID Date Data Source [id number] 02/10/2020 04:32:47 AM EDT [facility] [place] [facility] [place] Name Value Range Interpretation Code Description Data Tisha rce(s) Supporting Document(s) WBC 10.1 10*3/uL (4.1-11.0) [facility] [place] [facility] RBC 3.84 10*6/uL (4.00-5.40) L [facility] [place] [facility] HGB 10.5 g/dL (12.0-16.0) L [facility] [place] [facility] HCT 31.9 % (36.0-47.0) L [facility] [place] [facility] MCV 83.1 fL (80.0-95.0) [facility] [place] [facility] MCH 27.4 pg (27.0-32.0) [facility] [place] [facility] MCHC 33.0 g/dL (32.0-36.0) [facility] [place] [facility] RDW 15.8 % (10.5-14.5) H [facility] [place] [facility] PLT 216 10*3/uL (150-450) [facility] [place] [facility] MPV 8.9 fL (7.1-10.7) [facility] [place] [facility] ID Date Data Source [id number] 02/09/2020 06:26:35 PM EDT [facility] [place] [facility] [place] Name Value Range Interpretation Code Description Data Tisha rce(s) Supporting Document(s) POC NOVA GLU 259 mg/dL (70-99) H [facility] [place] [facility] [place] [facility] CLINICAL STAFF ID Date Data Source [id number] 02/09/2020 02:44:00 PM EDT [facility] ([facility]) Name Value Range Interpretation Code Description Data Tisha rce(s) Supporting Document(s) Microscopic observation [Identifier] in Unspecified sp ecimen by Gram stain Laboratory test result [facility] ([facility]) Few (<10/LPF) White Blood Cellsmoderate (5 To 10/Oif) Gram Positive Cocci Specimen Description Laboratory test result [facility] ([facility]) Special Requests Laboratory test result [facility] ([facility]) Report Status Laboratory test result MED ENT ([facility]) Laboratory test finding (navigational concept) [facility] ID Date Data Source [id number] 02/09/2020 10:35:54 AM EDT [facility] NT INFORMATIONPatient MRN Name Date of Age Gend*PT [id number] Tatianna Soto 1965 54 years F IPPT Location Admission Date/Time Visit ID Attending [id number] 02/05/20 0417 --- Dain Sanford MD([id number]) EPI ID CSN Admitting Provider [id number] Dain Sanford MD([id number])NAME: Tatianna Charles Lorenz#: [id number] #: [id number] DATE: 02/09/2020 PT TYPE: C SURACCT #: [id number] : 1965 SEX: femalePrimary Care Physician: TOM RUAN[facility] DATE: 02/09/2020SURGEON: Dain Sanford MDASSISTANT: nonePREOPERATIVE DX:bilateral [...] she [facility]. She has multiple stents which have [...] a micropuncture,followed by a J-wire and a 5-[place]ish Sheath. Next an Omni flush catheter wasplaced [...] spot for a bypass graft in the Q0afmyssk of the popliteal just distal to the stent. The peroneal and AT are thetwo main tibial vessels to the leg and the dorsalis pedis is patent to theankle. The PT is completely occluded throughout. I then performed finalangioplasty of the left common iliac artery and left external iliac artery withthe [id number] clare balloon and the [id number] clare balloons. Completionangiogram now performed retrograde from [...] bilateral legs. She ultimatelyone day might need anabaptism of flow surgically to the profunda on [...] rce(s) Supporting Document(s) ID Date Data Source [id number] 02/09/2020 10:49:28 AM EDT [facility] [place] kylie CEDILLO Name Value Range Interpretation Code Description Data Tisha rce(s) Supporting Document(s) POC NOVA GLU 155 mg/dL (70-99) H [facility] [place] Duarte THOMPSON PERFORMED BY [facility] CLINICAL STAFF ID Date Data Source [id number] 02/09/2020 10:09:24 AM EDT [facility] Name Value Range Interpretation Code Description Data Tisha rce(s) Supporting Document(s) IR IS ARTERIOGRAM ILIAC SELECTIVE [facility] ID Date Data Source [id number] 02/09/2020 01:19:48 PM EDT [facility] [place] [facility] Name Value Range Interpretation Code Description Data Tisha rce(s) Supporting Document(s) VANCOMYCIN TROUGH 9.9 ug/mL (10.0-20.0) L [facility] ID Date Data Source [id number] 02/09/2020 04:00:49 AM EDT [facility] [place] [facility] Name Value Range Interpretation Code Description Data Tisha rce(s) Supporting Document(s) SODIUM 143 mmol/L (136-145) [facility] [place] [facility] POTASSIUM 4.1 mmol/L (3.6-5.2) [facility] [place] [facility] CHLORIDE 109 mmol/L (100-108) H [facility] [place] [facility] CO2 30 mmol/L (22-31) [facility] [place] [facility] ANION GAP 4 mmol/L (7-16) L [facility] [place] [facility] UREA NITROGEN 18 mg/dL (7-24) [facility] [place] [facility] CREATININE 0.67 mg/dL (0.60-1.00) [facility] [place] [facility] BUN/CREAT RATIO 26.9 RATIO (10.0-20.0) H [facility] GLUCOSE 153 mg/dL (70-99) H [facility] [place] [facility] CALCIUM 8.4 mg/dL (8.4-10.2) [facility] [place] [facility] GFR >60 ml/min/1.73m2 (>59) [facility] [place] [facility] GFR ( AMER) >60 ml/min/1.73m2 (>59) [facility] [place] [facility] GFR INTERPRETATION [facility] --NORMAL KIDNEY FUNCTION OR MILD DISEASE - GFR >OR= 60CHRONIC KIDNEY DISEASE - GFR 15 - 59RENAL FAILURE - GFR <15 Est. GFR calculation based on the MDRDstudy equation, which assumes a steadystate for creatinine. Est. GFR should notbe used for medication dosing. ID Date Data Source [id number] 02/09/2020 04:00:49 AM EDT [facility] [place] [facility] Name Value Range Interpretation Code Description Data Tisha rce(s) Supporting Document(s) MAGNESIUM 2.2 mg/dL (1.7-2.4) [facility] [place] [facility] ID Date Data Source [id number] 02/09/2020 03:22:08 AM EDT [facility] [place] [facility] Name Value Range Interpretation Code Description Data Tisha rce(s) Supporting Document(s) WBC 10.4 10*3/uL (4.1-11.0) [facility] [place] [facility] RBC 4.14 10*6/uL (4.00-5.40) [facility] [place] [facility] HGB 11.4 g/dL (12.0-16.0) L [facility] [place] [facility] HCT 34.6 % (36.0-47.0) L [facility] [place] [facility] MCV 83.8 fL (80.0-95.0) [facility] [place] [facility] MCH 27.5 pg (27.0-32.0) [facility] [place] [facility] MCHC 32.9 g/dL (32.0-36.0) [facility] [place] [facility] RDW 15.6 % (10.5-14.5) H [facility] [place] [facility] PLT 215 10*3/uL (150-450) [facility] [place] [facility] MPV 8.7 fL (7.1-10.7) [facility] [place] [facility] ID Date Data Source [id number] 02/08/2020 05:52:10 PM EDT [facility] [place] [facility] Name Value Range Interpretation Code Description Data Tisha rce(s) Supporting Document(s) POC NOVA GLU 212 mg/dL (70-99) H [facility] [place] [facility] [place] [facility] BY [facility] CLINICAL STAFF ID Date Data Source [id number] 02/08/2020 04:32:59 PM EDT [address] [address]Favwkmr Name: Tatianna SotoB: 1965Sex: FOrdering Provider: HAYLEE FLANNERYuthorizing Prov: HAYLEE Castro Provider: Procedure Performed: MRI LOW EXT NO JNT WO CONTRAST LEFTExam Date: 02/08/2020 15:20MRN: [id number] Number: [id number] Class: INFORMATION: Exam: MR Left Lower Extremity [...] rce(s) Supporting Document(s) ID Date Data Source [id number] 02/08/2020 02:51:[address] [facility] Name Value Range Interpretation Code Description Data Tisha rce(s) Supporting Document(s) POC NOVA GLU 263 mg/dL (70-99) H [facility] [place] [facility] [place] [facility] CLINICAL STAFF ID Date Data Source [id number] 02/08/2020 01:08:00 PM EDT [facility]) Name Value Range Interpretation Code Description Data Tisha rce(s) Supporting Document(s) C reactive protein [Mass/volume] in Serum or Plasma 17.6 mg/dL 0.0-0. 5 [facility] ([facility]) ID Date Data Source [id number] 02/08/2020 02:17:03 PM EDT [facility] [place] [facility] Name Value Range Interpretation Code Description Data Tisha rce(s) Supporting Document(s) POC NOVA GLU 169 mg/dL (70-99) H [facility] [place] [facility] [place] [facility] CLINICAL STAFF ID Date Data Source [id number] 02/08/2020 12:41:45 PM EDT [facility] Name Value Range Interpretation Code Description Data Tisha rce(s) Supporting Document(s) EKG [facility] [id number] [file] [id number] ID Date Data Source [id number] 02/08/2020 12:32:23 PM EDT [address] [id number] Name: TATIANNA SOTODOB: 1965Sex: FOrdering Provider: DENISE CONTRERASSTOCKAuthorizing Prov: DENISE COMSTOCKReferring Provider: Procedure Performed: XR CHEST PORTABLEExam Date: 02/08/2020 12:19MRN: [id number] Number: [id number] Class: InpatientAccount #: [id number] for Exam: in PACU, s/p sternal wire removalTechnique: AP portable view obtained.Comparison: February 05, 2020Findings: PICC line tip is at the level superior vena cava. No pneumothorax is demonstrated. No pleural effusion demonstrated. No adenopathy is demonstrated. Lungs are clear. Heart size is normal.IMPRESSION: No acute abnormality.Report electronically signed by: MCKAY SENA On 02/08/2020 12:32 PMWorkstation ID: [id number] Name Value Range Interpretation Code Description Data Tisha rce(s) Supporting Document(s) ID Date Data Source [id number] 02/08/2020 12:08:05 PM EDT [facility] [place] [facility] Name Value Range Interpretation Code Description Data Tisha rce(s) Supporting Document(s) POC NOVA GLU 182 mg/dL (70-99) H [facility] [place] [facility] PERFORMED BY [facility] CLINICAL STAFF ID Date Data Source [id number] 02/08/2020 11:24:00 AM EDT [facility] ([facility]) Name Value Range Interpretation Code Description Data Tisha rce(s) Supporting Document(s) Erythrocyte sedimentation rate 96 mm/h 0-30 [facility] ([facility]) ID Date Data Source [id number] 02/08/2020 10:35:29 AM EDT [facility] NT INFORMATIONPatient MRN Name Date of Age Gend*PT [id number] Tatianna Soto 1965 54 years F IPPT Location Admission Date/Time Visit ID [facility]17 --- Dain Sanford MD([id number]) EPI ID CSN Admitting Provider [id number] Dain Sanford MD([id number])H&P reviewed. The patient was examined and there are no changes to the H&P.Saba Smith MD10:34 AM Name Value Range Interpretation Code Description Data Tisha rce(s) Supporting Document(s) ID Date Data Source [id number] 02/08/2020 08:29:24 AM EDT [facility] [place] [facility] Name Value Range Interpretation Code Description Data Tisha rce(s) Supporting Document(s) POC NOVA GLU 178 mg/dL (70-99) H [facility] [place] [facility] [place] [facility] CLINICAL STAFF ID Date Data Source [id number] 02/08/2020 09:09:28 AM EDT [facility] [place] [facility] Name Value Range Interpretation Code Description Data Tisha rce(s) Supporting Document(s) C REACTIVE PROTEIN @ 17.6 mg/dL (0.0-0.5) H [facility] ID Date Data Source [id number] 02/08/2020 07:24:58 AM EDT [facility] [place] [facility] Name Value Range Interpretation Code Description Data Tisha rce(s) Supporting Document(s) ESR 96 mm/h (0-30) H [facility] [place] [facility] ID Date Data Source [id number] 02/08/2020 06:50:28 AM EDT [facility] [place] [facility] Name Value Range Interpretation Code Description Data Tisha rce(s) Supporting Document(s) VANCOMYCIN TROUGH 11.9 ug/mL (10.0-20.0) [facility] ID Date Data Source [id number] 02/08/2020 06:50:28 AM EDT [facility] [place] [facility] Name Value Range Interpretation Code Description Data Tisha rce(s) Supporting Document(s) SODIUM 140 mmol/L (136-145) [facility] [place] [facility] POTASSIUM 3.9 mmol/L (3.6-5.2) [facility] [place] [facility] CHLORIDE 105 mmol/L (100-108) [facility] [place] [facility] CO2 30 mmol/L (22-31) [facility] [place] [facility] ANION GAP 5 mmol/L (7-16) L [facility] [place] [facility] UREA NITROGEN 18 mg/dL (7-24) [facility] [place] [facility] CREATININE 0.65 mg/dL (0.60-1.00) [facility] [place] [facility] BUN/CREAT RATIO 27.7 RATIO (10.0-20.0) H [facility] GLUCOSE 228 mg/dL (70-99) H [facility] [place] [facility] CALCIUM 8.6 mg/dL (8.4-10.2) [facility] [place] [facility] GFR >60 ml/min/1.73m2 (>59) [facility] [place] [facility] GFR ( AMER) >60 ml/min/1.73m2 (>59) [facility] [place] [facility] GFR INTERPRETATION [facility] --NORMAL KIDNEY FUNCTION OR MILD DISEASE - GFR >OR= 60CHRONIC KIDNEY DISEASE - GFR 15 - 59RENAL FAILURE - GFR <15 Est. GFR calculation based on the MDRDstudy equation, which assumes a steadystate for creatinine. Est. GFR should notbe used for medication dosing. ID Date Data Source [id number] 02/07/2020 11:23:46 PM EDT [facility] [place] [facility] Name Value Range Interpretation Code Description Data Tisha rce(s) Supporting Document(s) POC NOVA GLU 137 mg/dL (70-99) H [facility] [place] [facility] [place] [facility] CLINICAL STAFF ID Date Data Source [id number] 02/07/2020 04:40:16 PM EDT [facility] NT INFORMATIONPatient MRN Name Date of Age Gend*PT [id number] Tatianna Soto 1965 54 years F IPPT Location Admission Date/Time Visit ID Attending [id number] 02/05/20 0417 --- Dain Sanford MD([id number]) EPI ID CSN Admitting Provider [id number] Dain Sanford MD([id number])Inpatient Consult Megan SotoMRN: [id number] by Dain Sanford MD to evaluate Tatianan Soto for osteomyelitis of theright footRecords reviewed.HPI: The patient is a 54-year-old female with a history of chronic obstructivepulmonary disease, gastroesophageal reflux disease, coronary artery diseasestatus post bypass surgery 2016, hyperlipidemia, type 2 diabetes with peripheralNeuropathy, and peripheral vascular disease with claudication.Patient presented to [facility] with 2 hours of acute right foot andcalf pain. She was started on intravenous heparin and transferred to [facility] to Dr. Sanford's serviceRight femoral endarterectomy, [...] RIGHT LEGENDOSCOPIC SAPHENOUS VEIN HARVEST; Surgeon: Saba Simth MD; Location: [facility]; Service: Cardiac/Open Heart; Laterality: N/A; FOOT [...] femoral endarterectomy, Iliac to profunda femoral bypass [id number] ringed PTFE and Jump graft from the Right Iliofemoral bypass to the belowknee popliteal artery using 6mm Ringed PTFE. Ligation of the SFA.; Surgeon:Dain Sanford MD; Laterality: Right;Medications:Scheduled Meds: aspirin 325 mg Oral Daily atorvastatin 80 mg Oral Daily buPROPion 150 mg Oral Daily [START ON 02/08/2020] ceFAZolin (ANCEF) IV 2 g Intravenous Bus Operator to OR clopidogrel 75 mg Oral Daily clotrimazole 1 application Topical BID docusate sodium 100 mg Oral BID [START ON 02/08/2020] escitalopram 10 mg Oral Daily ferrous sulfate 325 mg Oral Daily with breakfast heparin (porcine) 5,000 Units Subcutaneous Q8H [facility] insulin glargine 20 Units Subcutaneous BID insulin lispro 2-24 Units Subcutaneous With meals sliding scale lisinopril 5 mg Oral Daily mometasone-formoterol 2 puff Inhalation RTBID mupirocin Topical Daily normal saline flush 10 mL Intravenous Q8H [facility] normal saline flush 3 mL Intravenous Per Protocol pantoprazole 40 mg Oral Daily pentoxifylline 400 mg Oral TID with meals piperacillin-tazobactam (ZOSYN) IV 3.375 g Intravenous Q6H pregabalin 150 mg Oral BID senna-docusate 2 tablet Oral Nightly vancomycin 1,000 mg Intravenous [id number] Infusions: electrolyte-R Stopped (02/06/20 7986)PRN Meds:.acetaminophen, albuterol, bisacodyl, cyclobenzaprine, magnesiumhydroxide, metoclopramide, mineral [...] on phone: None Gets together: None Attends restorationism service: None Active member of club or [...] children, all > 22 yo.had worked in [employer], last working 2008.Review of Systems:All review of [...] palpable sternal wires. Sternal woundwell- healedHeart exam S1-I4Hyyvsup soft, obese. Nontender. Positive bowel sounds. WithouthepatosplenomegalyRight [...] Procedure Component Value Units Date/Time Anaerobic culture [[id number]] Collected: 02/07/201014 Order Status: Sent Specimen: Wound Updated: 02/07/20 1133 Narrative: RIGHT FIFTH TOE. SAMPLE SENT. Anaerobic culture [[id number]] Collected: 02/07/201014 Order Status: Sent Specimen: Wound Updated: 02/07/20 1132 Narrative: LEFT HEEL. CULTURE ALREADY SENT. Wound culture [[id number]] Collected: 02/07/201014 Order Status: Sent Specimen: Non-Surg Soft Tissue Swab Updated: Narrative: RIGHT TOE WOUND Wound culture [[id number]] Collected: 02/07/201014 Order Status: Sent Specimen: Non-Surg Soft Tissue Swab Updated: Narrative: LEFT HEEL WOUND Blood Culture Peripheral x 1 Set (2 bottles aerobic and anaerobic) [[id number]]Collected: 02/05/20608 Order Status: Completed Specimen: Periphe ral Updated: 02/07/20 1057 Specimen Description PERIPHERAL 2 Special Requests NONE Culture Result NO GROWTH 2 DAYS Report Status PENDING Blood Culture Peripheral x 1 Set (2 bottles aerobic and anaerobic) [[id number]]Collected: 02/05/2009 Order Status: Completed Specimen: Peripheral Updated: 02/07/20 1057 Specimen Description PERIPHERAL 1 Special Requests NONE Culture Result NO GROWTH 2 DAYS Report Status PENDING 2019 nCoV Amplified [[id number]] Collected: 02/05/20 1445 Order Status: Completed Specimen: [...] THE VIRUS THAT CAUSES COVID-19.RESULTS EMAILED TO [facility] IC AT 2968. [phone] [id number]. FIRST TEST YES EMPLOYED IN HLTHCARE NO SYMPTOMATIC NO DATE OF SYMPT ONSET NOT APPLICABLE HOSPITALIZED YES ICU NO CONGREGATE CARE SET NO NO 2019 nCoV Amplified [[id number]] Order Status: Canceled Specimen: Swab from NasopharyngealImpression and Recommendations:Principal Problem: Ischemia of right lower extremityActive Problems: Type 2 diabetes mellitus with circulatory disorder, with long-term current useof insulin Heavy cigarette smoker (20-39 per day) HLD (hyperlipidemia) Coronary artery disease involving choctaw coronary artery of choctaw heartwithout angina pectoris Peripheral vascular disease COPD (chronic obstructive pulmonary disease) Osteomyelitis of lryc90-olrq-pal female with type 2 diabetes with diabetic [...] rce(s) Supporting Document(s) ID Date Data Source [id number] 02/07/2020 04:22:00 PM EDT [facility] ([facility]) Name Value Range Interpretation Code Description Data Tisha rce(s) Supporting Document(s) Est. Average Glucose 186 mg/dL [facility] ([facility]) Hemoglobin A1c/Hemoglobin.total in Blood 8.1 % 4.0-6.0 [facility] ([facility]) Performed using Siemens Hampton immunoassa y. Care must be taken when interpreting HbA1c results in patients with a hemoglobin variant or decreased erythrocyte lifespan. Values 5.7 - 6.4% suggest prediabetes. Values >=6.5% are diagnostic for diabetes. REFERENCE: DIABETES CARE 2018: 41(S13-S27). PERFORMED AT [address] [place] [address] ID Date Data Source [id number] 02/07/2020 04:17:00 PM EDT [facility] ([facility]) Name Value Range Interpretation Code Description Data Tisha rce(s) Supporting Document(s) Prothrombin time (PT) in control Platelet poor plasma by Coagulation assay 10.3 s 9.2-11.9 [facility] ([facility]) INR in Platelet poor plasma by Coagulation assay 0.98 [facility] SUGGESTED THERAPEUTIC RANGES USING INR F OR STABILIZED ANTICOAGULATED PATIENTS: STANDARD DOSE THERAPY INR 2.0-3.0 DVT, PE, PREVENT DVT OR EMBOLISM HIGH DOSE THERAPY INR 2.5-3.5 PREVENT EMBOLISM FROM MECHANICAL HEART VALVE ID Date Data Source [id number] 02/07/2020 04:17:00 PM EDT [facility] ([facility]) Name Value Range Interpretation Code Description Data Tisha rce(s) Supporting Document(s) aPTT in Platelet poor plasma by Coagulation assay 25.1 s 22.0-34. 3 [facility] ([facility]) ID Date Data Source [id number] 02/07/2020 02:05:34 PM EDT [facility] [place] [facility] Name Value Range Interpretation Code Description Data Tisha rce(s) Supporting Document(s) POC NOVA GLU 244 mg/dL (70-99) H [facility] [place] [facility] PERFORMED BY [facility] CLINICAL STAFF ID Date Data Source [id number] 02/07/2020 12:18:33 PM EDT [facility] [place] [facility] [place] Name Value Range Interpretation Code Description Data Tisha rce(s) Supporting Document(s) APTT 25.1 s (22.0-34.3) [facility] [place] Kendall Smith ID Date Data Source [id number] 02/07/2020 12:18:33 PM EDT [facility] [place] [facility] [place] Name Value Range Interpretation Code Description Data Tisha rce(s) Supporting Document(s) PT 10.3 s (9.2-11.9) [facility] [place] [facility] [place] INR 0.98 [facility] [place] [facility] [place] SUGGESTED THERAPEUTIC RANGES USING INR F ORSTABILIZED ANTICOAGULATED PATIENTS:STANDARD DOSE THERAPY INR 2.0-3.0 DVT, PE, PREVENT DVT OR EMBOLISMHIGH DOSE THERAPY INR 2.5-3.5 PREVENT EMBOLISM FROM MECHANICAL HEART VALVE ID Date Data Source [id number] 02/07/2020 12:23:15 PM EDT [facility] [place] [facility] [place] Name Value Range Interpretation Code Description Data Tisha rce(s) Supporting Document(s) HEMOGLOBIN A1C @ 8.1 % (4.0-6.0) H [facility] [place] kylie CEDILLO Performed using Siemens Hampton immunoassa y.Care must be taken when interpreting LbQ3tlbbdmyh in patients with a hemoglobin variantor decreased erythrocyte lifespan. Values 5.7 - 6.4% suggest prediabetes.Values >=6.5% are diagnostic for diabetes.REFERENCE: DIABETES CARE 2018: 41(S13-S27).PERFORMED AT [address] [place] [address] EST AVERAGE GLUCOSE 186 mg/dL [facility] [place] ID Date Data Source [id number] 02/11/2020 05:12:29 PM EDT [facility] [place] [facility] [place] SPECIMEN DESCRIPTION NON-SURG SOF T TISSUE SWAB LEFT HEEL WOUNDSPECIAL REQUESTS NONECULTURE RESULTS MODERATE FINEGOLDIA MAGNAREPORT STATUS FINAL 02/11/2020 Name Value Range Interpretation Code Description Data Tisha rce(s) Supporting Document(s) ID Date Data Source [id number] 02/10/2020 03:54:39 PM EDT [facility] [place] [facility] [place] SPECIMEN DESCRIPTION NON-SURG SOF T TISSUE SWAB RIGHT TOE WOUNDSPECIAL REQUESTS NONECULTURE RESULTS FEW PEPTOSTREPTOCOCCUS SPECIESREPORT STATUS FINAL 02/10/2020 Name Value Range Interpretation Code Description Data Tisha rce(s) Supporting Document(s) ID Date Data Source [id number] 02/09/2020 10:45:06 AM EDT [facility] [place] [facility] SPECIMEN DESCRIPTION NON-SURG SOF T TISSUE SWAB RIGHT TOE WOUNDSPECIAL REQUESTS NONEGRAM STAIN FEW (<10/LPF) WHITE BLOOD CELLS MODERATE (5 TO 10/OIF) GRAM POSITIVE COCCICULTURE RESULTS NO GROWTHREPORT STATUS FINAL 02/09/2020 Name Value Range Interpretation Code Description Data Tisha rce(s) Supporting Document(s) ID Date Data Source [id number] 02/09/2020 10:22:00 AM EDT [facility] [place] [facility] SPECIMEN DESCRIPTION NON-SURG SOF T [...] rce(s) Supporting Document(s) ID Date Data Source [id number] 02/07/2020 08:42:59 AM EDT [facility] [place] [facility] Name Value Range Interpretation Code Description Data Tisha rce(s) Supporting Document(s) POC NOVA GLU 238 mg/dL (70-99) H [facility] [place] [facility] [place] PERFORMED BY [facility] CLINICAL STAFF ID Date Data Source [id number] 02/07/2020 07:56:24 AM EDT [facility] [place] [facility] Name Value Range Interpretation Code Description Data Tisha rce(s) Supporting Document(s) SODIUM 139 mmol/L (136-145) [facility] [place] [facility] POTASSIUM 4.7 mmol/L (3.6-5.2) [facility] [place] [facility] CHLORIDE 103 mmol/L (100-108) [facility] [place] [facility] CO2 26 mmol/L (22-31) [facility] [place] [facility] ANION GAP 10 mmol/L (7-16) [facility] [place] [facility] UREA NITROGEN 16 mg/dL (7-24) [facility] [place] [facility] CREATININE 0.81 mg/dL (0.60-1.00) [facility] [place] [facility] BUN/CREAT RATIO 19.8 RATIO (10.0-20.0) [facility] GLUCOSE 268 mg/dL (70-99) H [facility] [place] [facility] CALCIUM 8.8 mg/dL (8.4-10.2) [facility] [place] [facility] GFR >60 ml/min/1.73m2 (>59) [facility] [place] [facility] GFR ( AMER) >60 ml/min/1.73m2 (>59) [facility] [place] [facility] GFR INTERPRETATION [facility] --NORMAL KIDNEY FUNCTION OR MILD DISEASE - GFR >OR= 60CHRONIC KIDNEY DISEASE - GFR 15 - 59RENAL FAILURE - GFR <15 Est. GFR calculation based on the MDRDstudy equation, which assumes a steadystate for creatinine. Est. GFR should notbe used for medication dosing. ID Date Data Source [id number] 02/07/2020 07:32:09 AM EDT [facility] [place] [facility] Name Value Range Interpretation Code Description Data Tisha rce(s) Supporting Document(s) WBC 9.1 10*3/uL (4.1-11.0) [facility] [place] [facility] [place] RBC 4.29 10*6/uL (4.00-5.40) [facility] [place] [facility] HGB 11.8 g/dL (12.0-16.0) L [facility] [place] [facility] [place] HCT 36.0 % (36.0-47.0) [facility] [place] [facility] [place] MCV 84.0 fL (80.0-95.0) [facility] [place] [facility] [place] MCH 27.4 pg (27.0-32.0) [facility] [place] [facility] [place] MCHC 32.6 g/dL (32.0-36.0) [facility] [place] [facility] [place] RDW 15.7 % (10.5-14.5) H [facility] [place] [facility] [place] PLT 202 10*3/uL (150-450) [facility] [place] [facility] [place] MPV 8.7 fL (7.1-10.7) [facility] ID Date Data Source [id number] 02/06/2020 10:59:00 PM EDT [facility] ([facility]) Name Value Range Interpretation Code Description Data Tisha rce(s) Supporting Document(s) Laboratory test finding (navigational concept) Laboratory test result [facility] ([facility]) [address] [address]Qji# Surgical Pathology ReportAccession #:[id number](s) ReceivedA: Contents of femoral artery rightClinical Diagnosis and HistoryClaudication Diagnosiscontents Of Femoral Artery, Right: Atherosclerotic Plaque (Gross Diagnosis). Gross DescriptionReceived in formalin, the specimen is labeled "contents of femoral arteryright" consists of fragmented white-johnson calcified atherosclerotic plaquemeasuring approximately 3-4 cm in aggregate. No sections submitted. Agustin asencio. jglm/gmm Reported: 02/06/2020Electronically Signed Out By Serjio Sandhu M.D. [facility] [place] [address]gmdYeciwrkdt component performed at [facility], Histopathology, [address] [place] [address], [address].Reported at [facility], [address] [place] [address], [phone]. This report may includeimmunohistochemical or in-situ hybridization results. Testing wasdeveloped and the performance characteristics determined by [email or web address] as required by [employer] '88. The Fda hasdetermined that approval for specific use is not necessary for clinicaluse. The quality of Hematoxylin and Eosin stains and as applicable, forall im munohistochemical and/or special stains, including positive andnegative controls, were reviewed and considered appropriate.Icd codes I70.90CPT codesA: [id number] ID Date Data Source [id number] 02/06/2020 10:43:12 PM EDT [place]'[address] [address]Rchtabx Name: Tatianna MccarthyB: 1965Sex: FOrdering Provider: HAYLEE FLANNERYuthorizing Prov: HAYLEE Castro Provider: Procedure Performed: MRI LOW EXT NO JNT WO CONTRAST RIGHTExam Date: 02/06/2020 20:23MRN: [id number] Number: [id number] Class: INFORMATION: Exam: MR Right Lower Extremity [...] rce(s) Supporting Document(s) ID Date Data Source [id number] 02/06/2020 06:47:40 PM EDT [facility] [place] [facility] [place] Name Value Range Interpretation Code Description Data Tisha rce(s) Supporting Document(s) POC NOVA GLU 294 mg/dL (70-99) H [facility] [place] of Fariha THOMPSON PERFORMED BY [facility] CLINICAL STAFF ID Date Data Source [id number] 02/06/2020 02:32:52 PM EDT [facility] NT INFORMATIONPatient MRN Name Date of Age Gend*PT [id number] Tatianna Soto 1965 54 years F SDCPT Location Admission Date/Time Visit ID Attending Provider --- --- --- Saba Smith MD([id number]) EPI ID CSN Admitting Provider [id number] Saba Smith MD([id number]) [place] [address] OPERATIVE REPORT OPNAME: TATIANNA SOTO Gerda#: [id number] #: ADMISSION DATE:: 1965 SEX: F PT TYPE: H SURACCT #: [id number] CARE PHYSICIAN: TOM CORONADO-SURBEDATE OF OPERATION: 02/05/2020DATE AND TIME OF PROCEDURE:02/05/2020 at approximately 7:00 p.m.PREOPERATIVE DIAGNOSIS:Right lower extremity critical limb ischemia with rest pain.POSTPROCEDURAL DIAGNOSIS:Right lower extremity critical limb ischemia with rest pain in the settingof an acutely occluded right superficial femoral artery stent.ESTIMATED BLOOD LOSS:250 mL.SPECIMEN:Right common femoral artery contents for permanent pathology.[employer] DIRECTOR:Cliff Alex PA-C.ANESTHESIA:General endotracheal.PROCEDURE IN DETAIL:The patient [...] bypass graft, thuscreating a PTFE to PTFE ixfzy-ab-ruwtf anastomosis and this jump graft wasthen anastomosed [...] the dorsalis pedis artery.BETZY Borrego/CARMINE Job #: [id number] DOC #: [id number] Name Value Range Interpretation Code Description Data Tisha rce(s) Supporting Document(s) ID Date Data Source [id number] 02/06/2020 12:23:05 PM EDT [facility] Name Value Range Interpretation Code Description Data Tisha rce(s) Supporting Document(s) POC NOVA GLU 355 mg/dL (70-99) H [facility] [place] [facility] CLINICAL STAFF ID Date Data Source [id number] 02/06/2020 09:01:24 AM EDT [facility] Name Value Range Interpretation Code Description Data Tisha rce(s) Supporting Document(s) POC NOVA GLU 207 mg/dL (70-99) H [facility] [place] [facility] CLINICAL STAFF ID Date Data Source [id number] 02/06/2020 08:37:40 AM EDT [facility] Name Value Range Interpretation Code Description Data Tisha rce(s) Supporting Document(s) SODIUM 138 mmol/L (136-145) [facility] POTASSIUM 4.3 mmol/L (3.6-5.2) [facility] CHLORIDE 103 mmol/L (100-108) [facility] CO2 25 mmol/L (22-31) [facility] ANION GAP 10 mmol/L (7-16) [facility] UREA NITROGEN 17 mg/dL (7-24) [facility] CREATININE 0.81 mg/dL (0.60-1.00) [facility] BUN/CREAT RATIO 21.0 RATIO (10.0-20.0) H [facility] GLUCOSE 236 mg/dL (70-99) H [facility] CALCIUM 8.2 mg/dL (8.4-10.2) L [facility] GFR >60 ml/min/1.73m2 (>59) [facility] GFR ( AMER) >60 ml/min/1.73m2 (>59) [facility] GFR INTERPRETATION [facility] --NORMAL KIDNEY FUNCTION OR MILD DISEASE - GFR >OR= 60CHRONIC KIDNEY DISEASE - GFR 15 - 59RENAL FAILURE - GFR <15 Est. GFR calculation based on the MDRDstudy equation, which assumes a steadystate for creatinine. Est. GFR should notbe used for medication dosing. ID Date Data Source [id number] 02/06/2020 07:57:45 AM EDT [facility] Name Value Range Interpretation Code Description Data Tisha rce(s) Supporting Document(s) WBC 16.1 10*3/uL (4.1-11.0) H [facility] RBC 4.46 10*6/uL (4.00-5.40) [facility] HGB 12.2 g/dL (12.0-16.0) [facility] HCT 36.7 % (36.0-47.0) [facility] MCV 82.4 fL (80.0-95.0) [facility] MCH 27.3 pg (27.0-32.0) [facility] MCHC 33.2 g/dL (32.0-36.0) [facility] RDW 15.9 % (10.5-14.5) H [facility] PLT 241 10*3/uL (150-450) [facility] MPV 8.6 fL (7.1-10.7) [facility] ID Date Data Source [id number] 02/06/2020 01:31:00 AM EDT [facility] Name Value Range Interpretation Code Description Data Tisha rce(s) Supporting Document(s) Laboratory test finding (navigational concept) 50 [facility] ([facility]) Poc Source Laboratory test result [facility]) Poc Temp Laboratory [facility] result [facility]) CP Bypass Laboratory test result [facility]) Poc pH 7.50 [pH] 7.35-7.45 [facility] ([facility]) TEMPERATURE CORRECTED VALUE Poc Art O2 Sat 99 % 95-99 [facility]) Poc pO2 122 83-108 [facility]) TEMPERATURE CORRECTED VALUE Poc pCO2 29.4 32.0-48.0 [facility]) TEMPERATURE CORRECTED VALUE Poc Base Excess 0 0-3 [facility] Poc Total Co2 24 23.0-32.0 [facility]) PERFORMED BY [facility] CLINICAL STAFF Poc Hco3 22.9 21.0-29.0 [facility]) Potassium [Moles/volume] in Serum or Plasma 3.6 3.6-5.2 [facility] Poc Ionized Calcium 4.3 4.6-5.3 [facility] ([facility]) Poc Hematocrit 37 % 36.0-47.0 [facility]) Sodium [Moles/volume] in Serum or Plasma 136 136-145 [facility]) Poc Glucose (iStat) 181 70-99 [facility] ([facility]) Rock [employer]imb[employer] Instructor who read Cyto stain of Cervical or vaginal smear or scraping Laboratory test result [facility]) ID Date Data Source [id number] 02/06/2020 12:12:[address] [facility] Name Value Range Interpretation Code Description Data Tisha rce(s) Supporting Document(s) POC NOVA GLU 202 mg/dL (70-99) H [facility] [place] [facility] [place] [facility]FOR[facility] BY [facility] CLINICAL STAFF ID Date Data Source [id number] 02/05/2020 09:31:35 PM EDT [facility] Name Value Range Interpretation Code Description Data Tisha rce(s) Supporting Document(s) POC TEMPERATURE [facility] 36.0C POC SOURCE [facility] POC FIO2 50 [facility] CP BYPASS [facility] POC PH 7.50 pH (7.35-7.45) H [facility] TEMPERATURE CORRECTED VALUE POC PCO2 29.4 MMHG (32.0-48.0) L [facility] TEMPERATURE CORRECTED VALUE POC PO2 122 MMHG (83-108) H [facility] TEMPERATURE CORRECTED VALUE POC SAT O2 99 % (95-99) [facility] POC BASE EXCESS 0 MMOL/L (0-3) [facility] POC HCO3 22.9 MMOL/L (21.0-29.0) [facility] POC TOTAL CO2 24 MMOL/L (23.0-32.0) [facility] CLINICAL STAFF POC HCT 37 % (36.0-47.0) [facility] POC SODIUM 136 MMOL/L (136-145) [facility] POC POTASSIUM 3.6 MMOL/L (3.6-5.2) [facility] POC IONIZED CALCIUM 4.3 MG/DL (4.6-5.3) L [facility] POC GLU 181 MG/DL (70-99) H [facility] ID Date Data Source [id number] 02/05/2020 08:22:50 PM EDT [facility] NT INFORMATIONPatient MRN Name Date of Age Gend*PT [id number] Tatianna Soto 1965 54 years F IPPT Location Admission Date/Time Visit ID Attending Provider --- --- --- --- EPI ID CSN Admitting Provider [id number] ---AirwayPatient location during procedure: ORUrgency: electiveDifficult airway: [...] to lips: 21 cmPlacement verified by: + [id number] view: grade I - full view of glottis Name Value Range Interpretation Code Description Data Tisha rce(s) Supporting Document(s) ID Date Data Source [id number] 02/05/2020 08:01:43 PM EDT [facility] NT INFORMATIONPatient MRN Name Date of Age Gend*PT [id number] Tatianna Soto 1965 54 years F IPPT Location Admission Date/Time Visit ID Attending Provider --- --- --- --- EPI ID CSN Admitting Provider [id number] ---Arterial Line PlacementPatient location during procedure: ORIndications [...] rce(s) Supporting Document(s) ID Date Data Source [id number] 02/05/2020 07:31:58 PM EDT [facility] [place] Name Value Range Interpretation Code Description Data Tisha rce(s) Supporting Document(s) POC NOVA GLU 182 mg/dL (70-99) H [facility] [place] PERFORMED BY [facility] CLINICAL STAFF ID Date Data Source [id number] 02/05/2020 08:08:00 PM EDT [facility] Name Value Range Interpretation Code Description Data Tisha rce(s) Supporting Document(s) POC NOVA GLU 188 mg/dL (70-99) H [facility] [place] PERFORMED BY [facility] CLINICAL STAFF ID Date Data Source [id number] 02/05/2020 05:57:58 PM EDT [facility] Name Value Range Interpretation Code Description Data Tisha rce(s) Supporting Document(s) APTT 97.7 s (22.0-34.3) HH [facility] [place] Smith ALERTED CRITICAL RESULT TONICHOLAS (4300 220)/D4 EXT 54442 AT 1756 ON 02/05/20 [place] [address] ID Date Data Source [id number] 02/05/2020 02:45:00 PM EDT [facility] Name Value Range Interpretation Code Description Data Tisha rce(s) Supporting Document(s) SARS coronavirus 2 RNA [Presence] in Res piratory specimen by CHLOE with probe detection [facility] This lab was reported by [facility]. ID Date Data Source [id number] 02/05/2020 11:35:50 PM EDT [facility] Name Value Range Interpretation Code Description Data Tisha rce(s) Supporting Document(s) SPECIMEN DESCRIPTION [facility] COVID19 RESULT (NDET) [facility] [place] [facility] QUINTEROS THIS ASSAY AMPLIFIES AND DETECTSTHE TARG ET RNA USING REAL-TIME PCR.NEGATIVE 2019_NCOV RT-PCR RESULTS DONOT PRECLUDE 2019_NCOV INFECTION ANDSHOULD NOT BE USED THE SOLE BASISFOR PATIENT MANAGEMENT DECISIONS. COMMENT [facility] UNDER AN EMERGENCY USE AUTHORIZATION(EUA ) FOR THE DETECTION AND/OR DIAGNOSISOF THE VIRUS THAT CAUSES COVID-19.RESULTS EMAILED TO [facility] IC AT [phone]. [phone] 44320. FIRST TEST [facility] [place] SYMPTOMATIC [facility] [place] DATE OF SYMPT ONSET [facility] HOSPITALIZED [facility] [place] [place] [facility] CONGREGATE CARE SET [facility] ID Date Data Source [id number] 02/05/2020 01:49:52 PM EDT [facility] Name Value Range Interpretation Code Description Data Tisha rce(s) Supporting Document(s) POC NOVA GLU 234 mg/dL (70-99) H [facility] [place] [place] PERFOR[facility] BY [facility] CLINICAL STAFF ID Date Data Source [id number] 02/05/2020 12:56:40 PM EDT [facility] NT INFORMATIONPatient MRN Name Date of Age Gend*PT [id number] Tatianna Soto 1965 54 years F IPPT Location Admission Date/Time Visit ID Attending [id number] 02/05/20 0417 --- Dain Sanford MD([id number]) EPI ID CSN Admitting Provider [id number] Dain Sanford MD([id number]) Attestation signed by Dain Sanford MD at [...] H&P Note Tatianna Soto Admission Date: 02/05/2020MRN: [id number]: 1965 54 yearsPrimary Care Provider: Sharona COE Physician: Dain Sanford MD Informant:Pt and chart. Both reliableCC:Right foot pain HPI:54 yr old female with medical hx significant for obesity, CAD (quintaplebypass), DM2, COPD (heavy smoker), PVD with claudication. [facility] and [...] VEIN HARVEST; Surgeon: Saba Smith MD; Location: [facility]; Service: Cardiac/Open Heart; Laterality: N/A; FOOT [...] Take 80 mg by mouth daily 02/04/2020 [id number] ASPIRIN ADULT 325 MG tablet Take 325 [...] admittedto Dain Sanford MD1. Chart reviewed from [facility]2. Pain control: PO and IV offered3. PVD ischemic right RLE: heparin gtt initiated in [place]. Will resumeheparin gtt as well as aspirin/plavix. CTA with run off pending.4. DM2: ADA diet, insulin scale. Glucose monitor protocol5. CAD: will make CT surgery aware that she is here. Will get cardiologyconsult. Sees Dr Millan in [place]. Has been consulted by Dr Gagnon group inthe past. Most recent echo from June with EF 45-50%.6. Tobacco abuse: 20-40 per day. Smoking cessation encouraged. On wellbutrin7. Antiemetics prn8. DVT prophylaxis: US in [facility] neg for DVT: continue heparin gtt9. Disposition: Will await results from CTA to determine her inpatient plan.Discussed with Dain Sanford MD. Signature: JALIL Astudilloate: February 05, 2020Time: 5:50 AM Name Value Range Interpretation Code Description Data Tisha rce(s) Supporting Document(s) ID Date Data Source [id number] 02/05/2020 12:16:46 PM EDT [address] [id number] Name: TATIANNA MCGINNIS: 1965Sex: FOrdering Provider: EMIL Caruso Prov: EMIL Felix Provider: Procedure Performed: CT ANGIOGRAM ABDOMINAL AORTA AND BILATERAL RUNOFFExam Date: 02/05/2020 09:25MRN: [id number] Number: [id number] Class: InpatientAccount #: [id number] [id number] Exam: Arterial embolism, lower extremityTechnique: Helical [...] MOSHE WREN On 02/05/2020 12:16 PMWorkstation ID: [id number] Name Value Range Interpretation Code Description Data Tisha rce(s) Supporting Document(s) ID Date Data Source [id number] 02/05/2020 12:03:00 PM EDT [facility] ([facility] [...] 162 U/L 45-117 [facility] ([facility] ) Glomerular filtration rate/1.73 sq M pre dicted among non-blacks [Volume Rate/Area] in Serum or Plasma by Creatinine-based formula (MDRD) 44 [facility] ([facility]) Alanine aminotransferase [Enzymatic activity/volume] in Seru m or Plasma 15 U/L 12-78 [facility] ([facility] ) Aspartate aminotransferase [Enzymatic activity/volume] in Serum or Plasma 13 U/L 11-39 [facility] ([facility]) Glomerular filtration rate/1.73 sq M pre dicted among blacks [Volume Rate/Area] in Serum or Plasma by Creatinine-based formula (MDRD) 53 [facility] ([facility]) Glomerular filtration rate/1.73 sq M pre dicted among non-blacks [Volume Rate/Area] in Serum or Plasma by Creatinine-based formula (MDRD) Laboratory test result [facility] ([facility]) -- NORMAL KIDNEY FUNCTION OR MILD DISEASE - GFR >OR= 60 CHRONIC KIDNEY DISEASE - GFR 15 - 59 RENAL FAILURE - GFR <15 Est. GFR calculation based on the MDRD study equation, which assumes a steady state for creatinine. Est. GFR should not be used for medication dosing. ID Date Data Source [id number] 02/05/2020 10:50:35 AM EDT [address] [id number] Name: TATIANNA MCCARTHYB: 1965Sex: FOrdering Provider: LIBORIO Brower Prov: LIBORIO CLAYReferrregine Provider: Procedure Performed: XR CHEST PORTABLEExam Date: 02/05/2020 10:47MRN: [id number] Number: [id number] Class: InpatientAccount #: [id number] [id number] Exam: heart failureTechnique: AP portable view obtained.Comparison: 01/05/2016Findings: Mediastinal structures are unremarkable. There is no pleural disease. The lungs are clear.IMPRESSION: No active disease.Report electronically signed by: ASHWIN BEACH On 02/05/2020 10:50 AMWorkstation ID: [id number] Name Value Range Interpretation Code Description Data Tisha rce(s) Supporting Document(s) ID Date Data Source [id number] 02/05/2020 10:13:22 AM EDT [facility] NT INFORMATIONPatient MRN Name Date of Age Gend*PT [id number] Tatianna Soto 1965 54 years F IPPT Location Admission Date/Time Visit ID Attending ProviderD-[id number] 02/05/20 0417 --- Dain Sanford MD([id number]) EPI ID CSN Admitting Provider [id number] Dain Sanford MD([id number])CARDIOLOGY CONSULTATIONName: Tatianna Soto Gender: femaleDate of : 1965 Age: 54 yearsDate/Time of Admit: 02/05/2020 4:17 AM Code Status: Full CodePrimary Care Provider / Referring Physician: LEIGH COEnformant:HISTORYCHIEF COMPLAINT: No chief complaint on file.HPI:This patient is a 54 years female who was transferred here [facility] earlier today. She was experiencing acute right foot and calf pain.The patient has a history of diabetes and peripheral neuropathy.She has a history of coronary artery disease with CABG x5 performed here [id number].Her prehospital medications include Lipitor, aspirin, Plavix, Prinivil, [...] VEIN HARVEST; Surgeon: Saba Smith MD; Location: [facility]; Service: Cardiac/Open Heart; Laterality: N/A; FOOT [...] file Gets together: Not on file Attends restorationism service: Not on file Active member of [...] Take 80 mg by mouth daily 02/04/2020 [id number] ASPIRIN ADULT 325 MG tablet Take 325 [...] rce(s) Supporting Document(s) ID Date Data Source [id number] 02/05/2020 10:10:48 AM EDT [facility] Name Value Range Interpretation Code Description Data Tisha rce(s) Supporting Document(s) EKG [facility] WYTNCl1qGgUTDvIth0RwCcSjAKOdCB9gket2U8L8mRWcE6LkeCNvg9rbN8FtL4XxMXUyITKFHP3MuKLz jb2 [file] COUNT TEAM CLERK+uOZuR3lnxBkVJtTXRxL+Ik56MvTz9LRiuUOPMivcY4BeKVlk9JjWX+M3/ThiWeIBU/MQW6C+RM8 kS6a4AXw2fTN7dEQzslRfkBrxKPLKeUtJGxHE82PEH RRnCV9sq9wmSpY7jECapiDC/Zy7TcehYn4xlljshIyiHQat1049twKIE1DdDv8+FH79edXgDXn32BMC5 rfOkvTEVf59EkFAqbDTa2cRecM1oiWTWMpGGjx3dkpFKQbnna32TWPoXHDthejpFPSxvJ1QjirB9U7vq 76oePJB7Je1Mue9bNIXVHzoMQFeB/9jxkyW24KWhql OdZ048373SRWDDcwiaml1OG4ZgbIdxi2VFAmgGDoKvlWtA1pO6jJ9FsfJ0etdnG6mCgNLS1fmvyV96Lx bIc+YNGzqhvS43Evgvx7NDX+PaqDx5Q7XVF43BwXJ+8X+kYMpW/EUPpWIkoEcaS+PR5MS4IfFge743XU B9g9NMRfkJIY++C80AiLgr8WKEgnspDCLA1Cw2IzDX Io4DFZYgEwoZn7HLyxmmn3XoMtfCxXYGqg7gRQ4eYKIAj05pc1YLWXeiOAESuY32eE4rCozFEDFSbpVE OVHbNYZcRWT5WYnbiaR4jrTkcMuYP8BR6B1OoYuROT3BBD6tyMKRMWkPDXwKxVeGRAI2XR5CzNTRBbui TdUfpAEVceirkwkicmMhoF/BLXqMQ96TxpC/SIENA/kZ hFKmFPMojpNEDf7eOMyGpUpqEMdYYzEXPULfzduk0IqsgE4504k1zgr0kB5rZGS46hCCQ5HpcOdA6bL+ hOTqaD4HsuDxNUe9fTieO56mS6VvCZ62QebTJ6JFcx7PjmvVjQvHT4iGlJiyDVPa2ZL3CYdZBNdmQ2Yq Sn8ko7qSPoGyv3UnRPsGgXTrTiMWHRmRL1JXlaKMWW iDjCcmMqhDHxjHgeXeOdqJcfAIrI0+OU3UL30QUSGl3AF5G2DHL2eqbUF9JksuFoaAGby29ZjDfzkL3F MyiApGQt4ZmGqDwI5iakUtI8ZjNmTzBIuUktPssok1peHnuoNHJKMvoa0E9w7wvkNam4ludBOj+mDSB5 M+fWbGbRLayB5XyqmJwcd7EHlKQdaA9ViLCI0FgxVN URhBZBjpXEsCQWmy7iZFRkv4Ao96DBOax24YCBIqvNnPtsZeORHl54kZwzYxZA64zfXOaWbE7VXeLvHH SUrltMWwguaANa8KX/Z6SqggopKqixL2f6liiSHtLQZgxpOSWD6K0bdc1VjcARU8RLNTK9rg3B3l6CcH GAwSY8hdPbLDcYF5aPEsFqdT9wkOxVezqxeMGxXZlJ 21K2edWBeRuasdkZHv+/GKO4oyJdO1lADEPNR7GaJH9KuHGg91boGDSxAPvJsEKEZnUxvi1CSZHgIsfC CubLKpg/nXylDA6yl05oqzBceW9fZloMLU3md8ppgRQg0fO3ihbY3k5hd7tgmqaCmaEIudAfV3pJXLou zQQL8dLbhlZ4xw/SYNSEcxzNf1LH+fGBtKw6YJCxWb hyf+YKTxmFYk8sSKVP4SSQH7BPL1/wg/QEASlWZ6jhOvVI7gtqjbPIM7WJOiTC/9wWYkqMzUdELtTI76 l3MaeTM87Ni4IG81h0oB+CER+bHgiRZmDyES+5HALjQDVNd5q3AHNeUQfMEcNiaIyrgPSZQ0wYRhbsVk psKlblrEDpckedU8vbOtzNcsdNh5htxivihabL+[place] [file] cook relief/otPV4sDe60PLqzfoQg0b96lqhS5U0qmtTOWl0GbbCeMAIzIAuyW+6ikQxBo7Pp6v3QJTuELXJMf9 [file] X4z//953/8n/E///principal software architect//vnf//rUfWt8A9//xVPXAL0 /9e/4oVLhzv+eH3fytLIAGm00dGNQdRHjULufg+PP9SRvT2wak4bSwA0Vc1oznI1X6g/sq5Zhw5Nl/6O 6O+gmHaR64U774af1RR4EvcZUtwA/lY4+ssKKZAe2uCat+uXeB95bUsqgry/0/yFRH/rNLE2ZexF3k+V aaK/abVBor+lnpcKWhh3ssFulwbBO2Po/MjweOPTbM YLCr+yXN9mkLzLnpnlgOE12w3fu1gOr/Nb8Gg0kPiA/o6cJtfOO6ptbVt9BsI+v/Of1piee8qDT+VU+I 2f6fQa/W7A56lVdr9+Bj90ScrIObdGvEewbmF3rcJ3s3I2I7zaRjz+4y2+17L+jiu/g9ak2N9Lw/c4Wb kB57ykj1UqZJit66Kw+djpLfKL86S03oP/7Qtrf0hv BXu/entry operator//l0vwfFNbp42Kz9m875l5BX0Jbc4F6026NHx0/5+ZoVa6n5tK43z1pZ+sobrdWw4LfhH4grF 2pWug8Ewh7OTwM/+ZpkmKGeiHPTXFtKvbr+fz0Cb73s5Gc9o62ygAD1dgGj5U+kPykF/SlbbJL7od+Jx 2WaHx5a/Cio7WLVGzr/eb4pJd57/EZMipGEcRH239a 9JA9Hv/B05/l/s4kowoQFi+TtznL/I7fdfU/atf/E/KBbhd/1k0fqSR31X/64jeemN5q/+LUuMa7hIvN ey/tZW2Fwadv/CHRl+p2494QMgc//QCr/kvYZXM94MZyxbLS6//bmWS//33qmC3jyd/eZqpnm/7w2/39 nB5NVW69qiv85V8s77XIgm4+u9x7gSxRoO/ny/r1cb Tn+ZjDg1NLkl2/T3DLECg0I2QaR7jqhyxW2k1tq/C/FP6dwDNKJN4ICHs5/P4ygf4/duVlzy5Ewvuu1P ulhxqBsXB5Sls9lO4PMFz0Oo7qoQZ6IswqHnH5S+uhTxinhD+IQ6OsneO+8ChkkMG7gM+eJPtyfwVZU/ 0N8xEI/+DhO71PG7YcHJpc/xIOS2J/XJEi8AI/09mT n5V4pQ4HxyFfcz7zaoTessyk/TO62vJafdlPlz+Vkc3zGv0H7PeYKb9uZqUIgmQE3nDqDRrB88ZLuyim jIzYY4Zh2H94s7uI/E72+zjRAMZ4qhpj637lw8tQDY9n445cceHbUZ3/x7Yek0PGSjk0BxvD7nZuHyKC 9Ij/5OR/qNehs/x+uO+73maTmv/l+Tcf498jvVO85Q 4qtKg/7t3Xmb0chOc+fiPCq0mk6LU6XfvugBm8L1UfLC7FeEsoFshY5mVzwJTQDx0dYE5C2nutHQeB3x 1ReOeq/+GeFuT+CrarPi+wa+ih4Bapfl4n/MWyfvyN33TB06zwu30XH43/vt6gxX8nmm92eqNFqe2Hao 8X2t/4/iucYXnoifiI/+8fNAFu4Aamea+uHeeKfxxR bAR4s08APu3TxHyvSr+MpKT57efxcwqxp/YDzO+NKjv47+Ovqb+AcmydlnU9kJnNeWY6bGhH65///Gg4 cx48e3GbdEhgv+++l6d//bn7dMT76UakwgyvWaBm/dcNcb+OoLd/o5zpi7Cv0iNic72e/taCf6u/F9A1 /w5hW2Mn2/G96rcvqP6yvtHG+oNno03YnRz/3oLKTH 6d4q10Y6CEC3v2ojlWtE06unrn2AqlL4kT6n6br8+VvdTyb9gJYQ1TU56x81hhgJ7x20GbHVut+KhxW1 SiT2pywp58qMgfHbksB+lbZLUt7sb2Zy2rLhw/l4UVH/4oAvgnCY5T4bki+n04/xIIz4/t+UquDvU5jN FF+Z8/sPincU+rUyi6jUdDjYXnGro2nCREBWkRiZq9 fTkucAN28DAJO45pI+uc8qousby/sdPGivK6O5A5cFikqBcBxFp8wN+YwN7930hicabkcuygv+wFdTen 3q1wfibIyy1OsFFGwzaoxGVq92Pv8YGQbVdyB3waTqDIj2/QyZK3e9W9rsZj/8QPxAfP/qqoIVV67W+o n4wM+zwnr/qrQ2HVa9/ymF76bgwNPL1C004e8sU/qb 3uJb9N1Q/paNf74DN0Iy2AKyZUFeu+td/b8fzyG+seyJI2FlyN/+Wxr2YLq7Oo5h9gJrxF+Ij/7mOA98 5bvC+rCZbaMvSSe67h+ynam/WhX+/hql1uhaa1a2bgl6cB+HjFry9im88uQTo2EE1SrdaAjLz574JT3e /ZHp0486hcgUxHwOnwG2ie/4M4YqbNukt8n2Qmo60g p9yCDj18zmlk2459qF31bHg8ZxIJj6AmcT+qtsf+Ip3NFOC0kpjzaqp+G1OmrtvPPmmVUUbu/wVbU/8J VVXaHfyHkX+MpSnoGvUncRzxt+5gKsam0guPs/F+ivJvRXs/EZBimfrl0Ra23o0Sz+3dn26Fx/pb/K+P 2hggfXZ7w7ztTr78cFSM+2Kb0wjBlU0uuHG/kfHQ8Z vjS7++Xob+Cr+l5+en3brd+QZzc4gP6/+/AW7o2Obf9fcaK1U+ux6yzKG0Xe7qHi35Rcf2RZ9Zu96ho/ I70386TWR/Wnatf1mp3Wq0Wmynues+4Rp//3Z+qvKs1E/Or8FaHMMSeqWkwBJs2C3BIsST94vmMwiwDJ lWYj/iC+/xfW0/+/15l5mQ1Lsdbcy/VN9ib3KXQ2SA +XajMiqenz9MXWBF8jdq+PVuKrinfE5//znmO8mfH8ch5YqD4OibP3KFPo+EHpAv8lLVuDhdmCyDKKd7 B+YU06AGr89Xt3/8LC+qNqloCkcY0g18Q2v+MF/Q37uDD5CyDIHzUn+QcXrA4rwv6hs8OcJ4HPN/2NPX Ulqwuvb6M/owRlxLshSrk42c0s/cZ71udJ0h9pg2vz v8r2p/5zxtc5os/AHpp9It0D4JB34IxHibre/BZTEY/vW/mcZpR4Ia4K04m6dgp4xft/xkxE4zH2Uqhv 5S+M59X/v2th/q7+V1dfo0asluH/85Q8xLummtQ/LgDrnnJSP6xpiS1bt0C42Qt6+e1B7zsjCB96GS6c Ryzi0E9ChQh/tf/3l/b6vLT/t3dodFXA+Zi/6ohHfx T23W06I/Nss9X1dlBmXFW7xEgdni0aft9e6dpvgRb/to0ikhxJlU+QC4DqePNAVvfw6TuM8O3Lsg5e6U iov6z8N9kjnw42Y3zQ9dD1Tn71xI+O/uebdj44HcgNQjxMG+HpP2c1448I/dXyg/Gg59kSV22MQk4ATx +hv1ob/d3Yf1N/lf1K/VWuLam/jsJf4Al4Tp9+318b 97Xfk81Ft/sGcdu/w9/2evtqP7pg8lh/W07opQy+NT9jQnD4jauj8bmMyX1jILQuw85rUn7l8LM9g/47 4n7/lybPfzM+0Sos94V8PNO33HPQ3/hwxKU4553j6O3buSDI+Dg8iMFDmAhl1wvQp3/dCaWinYm902d7 3i6JdOk171G2DNV+0qf1z/n7xdQZu47Ffz0l4yenpp 0x80LqK+aX98M56D6Pfblo5ruhqXqyTm/VPB/M+PE7UL0y45WhwQ4KHvN+//crrPffX/E8aANK6mY+Q4 J62sbgJwUT2mifL9jzcB+IR3+s9KqbDu+dEvLFJo8A5/S/oHZFEdNp0tx+RlzR/9fPt9FZVeR2ajr+r6 LS+g2V1m+ihXN7xmhRy4wr8G6ZW3/OxYl4c3C9rw9q LHiU1Nt/CWBm+ZrkSb05j/FmJXbT38F4ad2pzCep8ebyzrgn3/v5NBhrPz7dUXOacyjKoMBcU+n9u18R F/Yuyajxgfgw44m85T898j3zJVConECvcj6woIJzuiBLwF1nSytq9nS+tnm2R5FmsYlq1nH10oNMz/e/ zSfLj/sbuVak/acaelkvgMpbc1c8/t/Xhfmb+qtT4Z 7vq8+7dfX/eu5Nnsx7U5MS33HcI0Q1GMdfGfitvq+qwhPp+89rylJ50Q+F+39fVZHeEG+Wl6JedI/6qx vx+Y9v152O+s3U4z3pITX7x3LyxXyg+/xI8/5Vxc+Wf96/umHE9/++4nxQ8/3IjYPvr6V78UfXk1ZHhD Du+Whh1Vx0xK509r1e4+em89WMXxXKt8B/CQGdG71n Abt7h9G63HhsbuVU9A74/f+u5d0I3zkiN/G2w6Pm18Yi/YYCXynwlSa+qryCcibi+3xfd+NJ3f2/r4mv ptqkrfhLCi5tZV94B5H2+ksX019+5vlgps/zwRtGfP/v6+wzyF66uv+n/7966Qz7jHNilArnstulZsPu stItS9R4Q+ScPjoghNu2tzhR8U4oSRCTpdLD3zek3C 6cOkYo05JrS92CYd7QX/CFFeMK/BdWxCvSG+UP5h1Ae3ddXnC6fO0f0Xvh9x/sY+ogttUCOx7ozqm/Cn rv3s4Tnvo6ubnV35nUfU8Zii1rcBSsQGi/21lpk1h2rwOK1S1fRH7s49M7G+cJI73p6PcTYg7mSba/31 J/FePfZCBeEC+Qbgdl9GGuAV3PLsE5/DVRpDfEG+Id 3G79lcX62j/LB/evbLa+zur+COBrj3Ys8QA6+3/QZv/vG+5fWeqvKrxaPnOhfPQX+qilmj8ge+8j2UR/ cf/KZv/vG+8jKpzopb7j9+z2Ibp0clteib8ahe+mcM9b5Xr0yR7hq60BrXO+Pqso9m0YBPvbY4p5agjB msb5Vek4A/0Vmp8zOwl8IWWM9l6/MyE7BQho0P4E+3 /BPT5U6Q2oLG/6DVNFvCG+5KbzetT7nfmq+gv9lUF/Ibx0enq+r2H+FeUk0c1wNJR+qkbk91Nwb+I/2l J/hYxbuJ71zL76FKujQpu+7rcJ8EK00v+Y+CCd9wpDl3AhHe2E5ylxm9y/XY4/m01ZnHy6WlhT8f5THE Qbmmnk+x8xb/2G+BT8l8bq2F+622bC7dkEa2w+wxJf 5X7hrd/4/5sfBvBRcA5d83HUJ9QcMgWpJrdWAKSbJKwsnuvbeeyith0LPDNBLxMEIF7d+B+ikyT4wj+w 1F5lgk7daZ7hjjo3onK4DPP3Cq0x9Q1eC54xPL6F+85YhC6Law1kuvXSq/PHoxc29XH+aDgfNJwPWgTy +piMwm77ovo+dUbdb9a5ytdgjXnG+iAix76zkAo+7Z Vu/3ZL//acG+xbUjPCnitcQSIw2Du/FUv/9ioTyEd/4d/u6d+ulUZ+n/96+okBQBsk9T/76/Bv92+ifJ 93e/f8MqaNy2W/w0+6/Tf86/s4/jna0/tf/3q98q/4Z064deRYv+/o7NP9+F+NLHP8r+O9x928c8MVjq //1cq6P/3qbIhP+mevON+gH/+yv4FD1Sx29ox/ao/M /32/1c7jf+Ul//slIBru7Gh8+F+N7Mvo/ZEf/Ih2ZtkiA8L9+xW2gFSTMcxVn/vc14Rr9UqyitXpocf9 Kz/flx/2Xf1UkrZdsapzb7Y/2t23Wm7eMkb+ggw8DwUk01/D/8rhf+ViKO+Q0/PZJZDf5/kvsu604vW7 n32+27VU488C4N/s116exaJ/dwpchp40o32w4JT2qr /12ftfT/7ii5P83ks5pQg6x/sAmQd8pa8+X/DV5wu+2h/YM83qRcbluLvlOgv9giLaMd1O/WT9UM59a5 DfZSiP+mrmat7sv/utHWYdW13AOt6UNZmzfJ12ksfm331P+YLy6C/0K4d/r0z23it5227SP6Z3Lr0N3t HvKN/+/D43E9BcUI/7I0/96qZbfulXmT+QLyjf/pNu vR906/2+5/nzRdk48w7lKgp9zf11Sw/gsRlJlTyv339Em8Bf7VnvzGuWuczmy//yaH1Nf2V5/tfzfLDS 8vQZ9/km4oyrnYiH5tlwP/JX0bV7uoDMYg+fXurn/aOjSr5hX1tC0fr+YR5CYY9k058+3B/MszM/9wdT 9/Jsc5NYz/dCTz8FD/Vzf/JFg56s1LtqJMji3Trtg9 qpaekL6B5MtnQMvK/+Nao4KWa+4Wm/ybIfh19d+tAEBr1DYG/CjrBQ5yd813/I149B0SR9QBwCn5v/qj TmM+xXDvuV1/xylonDH5jUUR/2x1cobkE0Xfdi6FBVgjAY3d0mU9o+IZnqm3w7A8mcK+X16zKK/LbXxd f7/Uj/qyrjkB/BD4qJtS7wOe1KoQ/pQuhWx9wJ1WGB LFO4ZD0bsvS+YkN4HYc2I/cnJElBru9qWPAy1yfNe21pEnIOR65P8/4SKaaYdW0bxPlxuN5qzojhYYG9 fD+k7c8hC+KA9BsSjLcT7A/p/3CAu7fsvXppHsKu7W4M+n8UE/2F/1XA/ypm7/hf1a7dAxcdjMf/kd/2 55gLcvB+J+fquFuekU0Q66ivpyXpHvYb/KZm/49i9v 8oUr+KSr/1KjI+w1nDY/X6HEve+nvXFfrDFCWVe0s05zqpU1p3lz46uHT+r4FFlAmvrRU7Sl+fPSGWP3 +IFGR5fLXO/2wsyh7WA6qIYhqfu9hCxw/F1W5YQ12qs2b2tzw9/b3plp/+6sdH1v6RXU/2/NeErvcfjO Pfnv/TOP7t+D4HcT7zUSFz/1GoI7/b9GQ32r76bs1R qsZVlA8Iar4s+2RY+0+Q0yh54tkT0h4mzG92zvrwL13UX+S3/ni4B6d8EakbkeFDfLCKjUZm5dshfZ/z haVbY1E7kXLySzby/s/hvT8K7/VhtEip2FkaxIQ/Ib/3g+RV1dbd9J06aOA17c5kKu12d4Z095pgXvB/ /olebw5t97QH7D/0gGyTo2pABJICeEl4g8Eir1uu3k v+HDgfjDwfzHUG+sQdxxCu5ZRqAn9A91+VdzHi+F/N/Ecc/9fJ96ijc9xCc+N/pTn/j/+HYn18rI6v+F 9V34//1L2bxOX/4TDeIfra23uoRof/alX69/5JoqxmRaE2m6t1IrKDrtG4GlwBm6t4lXsJ09WKo9835A eRSv/te3r4p62F/cV78QePmfV/9mfYX7/fjfuDG/7t ++v/5370llL9/2h/yP7uum1x5P/7T+7PIL/Pu/fX+9/9OfIDctq/fX8b+e0/uUfvf/xb74C9cm+7Ef9q E2S05Bbyw5N4jK27L2kx8Ov76U7ZiOFkGn03cL/77Bv+6QnV0uQ+jf5e1KYkRmwwswyipluig2g762jd tdMT+RP5eL/DuqqACmhCD3b9pkxI/gfein3HE/1kS+ hiVbH6N0/dTz/Zs+9LbvhfbehXG/7tO/Ttt3hf8M0j2kmEKo6hsiZ1C+UV+pj4sPd3+cKe7T+5U7+6ae UK9pF1G/m9H9wV/2ujMrla8/i7UxNFlifxK6eZpH3b1+dHO/Wrm0Z+9dh2gl6jZ5/Pe/X+d6d+VfLR39 QyEmn4t9972a11u44XndH4sz3J+UD33Idkx7ZzrfVI th16pqw1LeV4bku9wr739fgIQ/Jbn9zn/kKciTohL4xqiV/9m9tz1nP/sMqc+4OpZ+15M7aoiieVH4wR i+Q53wM1oll2kNqz2g+0JlYm0wTs1po3dhy04IwGKvb/fla5pwy5nc/ztvZ/5jj1lI36f1z20+/eeT6Y 22shx366XNkdX1crb/E6FVbK5/19tjBX3uPqEKtJ1+ H8knbtxty/ojruzI7u9/vdO3p/mXJ2PJWF0U/ko7+B/qZ+VeXx/si60C8lF5KK/sK/aFcFa7I/A/0N9B g8fe799L0JW3s60cdUj/uOuuVG7bROakAkx/eV/r52ceeM/KWdUp1Y//bKR3/c474d0009+uyX070+bv R39/n9t678dg5FbKCQKeC28r7YlNaox8kf0Y2yiXBb frxtB4lzypigQ7fOKHF7h/vTrOV9EdDbJTjODRizCwLOcD9bqmLFAqP4EuUmIAbJb5LaLWct/1h/RIdw +BFvDfkj+fGYo2bh7W+kc2kMx1zq+Szlbaa8C/FW5j/ijMG+xO8M8+wcc1Ux8ixxfYi/iN/0u8SziAf/ C2VeCk3unxEyTC0aPmK+Gj+XdS8rQAAR+43BOHrWHx WvZGjMCN1P1sgOIkhxc36fUXqGS6hogFHg2/f64FfTIh8UgjZLFBLVHaWBOWNJBgFWtlrkO5LvrUj1/i R/oUZnWs8A7HbjCpk1Bc4/BWhrfwS/hdnr/srMH3E4aRrj/hHjqZw/9gzaq5FzQY/E077/iL6G+SOenv fPqHP6XfpYvPk1FroRORshieVf9an7YnhT0COT5Iq8 njzy1GcQIzLg/I7K8PDq635HJRC5inSdo+ugcD7JhrMqwtah6cSp6nbTGnjCewmVrMtqKeICx1U7+7PB cH703Tb6DyuKEK6l/tT6zrFAFHrIB7KcwH+B/ywAb2VPEvi3dMoeF0X6tR6uN7tMWb9tBcA+I21rPIgL slhvoR81kZck+juXEmVxl5V2h64RcC+lc4TMBim+ft YO0B17z2MdxxydE7xsHOftagum2Ts2tmay0iEAzw34Fu+0kOE5ExED9gh4akU+R+/zW+hVzlvHMIu7ov J6SeJwnO+n3ulR/rw+enI3oL20ec+j6uE8OfncmexsuJ4H8Hff/DRa1KgSRnAEdPza7S+L97XDtZjYsX BP/F/EzFTF2klB5jru3ILMM9YyZVhUJZgzlABqCC66 q87+yBmos/uc74/mgcgXKFvsgAr7ChIJd09hqQgG6/yl/e2XmirEVn35Tv5T127Td5Bkj7qW/jqLfH5w fWMtbG8WSk3YXUC8KR6LizytwG5+X7JHUh2wj8NQVLnmTzqeTc+i/7SVhqYI8/6V1RAN6pEYNPVXD9ob 7R1mW6rGkjsFWHhV+XswnhgXOi1TmdtlXylZ4VvzYm qkRdY33Ikk2lH92Pasvr7Oj12lglslHekW3Cqw27zKqURfHD7mqYK9cWx0ioqvow3Mc9RR2kdkPAiTmW XJtcKidOCJdW3L60BSQTStY2i4sHqHLN6TwudeTthu0oZvhEsXy6X5UIkZq1Ce/v6St55JIs+H9nVzbQ 2GY6+X6kQQjMJiw5JL+cay9egj0StW8tJS0iFH5Ese cO9EKnyv1ld3igsCnCsNsazT6bKlc4y96j9G4GIU6NxWfY1N0lBhCflfs48ZX+hNIdc0YtOh9lUhNgKM tjTG9yxhzUmnx1XLgwCW28UtuDY8GKH443NxoSpEimrbyvVJpHTyJRONUAq4DHrRJFAgB5M8hgTH1d1R 9yZGrFALSOuIz9khnHjfL6xj2EHRKJgs/heM/wXjf8 H5X/PQ7jqaGNieEP3oXFnhh+MMRI9UbPVC+Y8aLQpg0MkC08/MkKQ476CZbLr5cO3zjKatvABJTuQOcj OwW12N8e40DAOs0opXZozUDHTV1lrMh0ZN79SGKHCOKzYc4F3mrKjT2OmTwUzo+sLulkX5XwuEPOO/2P wW9rEQThgV1xyCIK54/61h4lHZFd1rw9pmEd/HOrrj GfHHiaZ/qS9puI080Mo1+heJwdZhS8nKknu/uYuhtM45S86R+x7GcgWfL56aY5hMB9/rnIcEjZu73HEg m9CJrX+CMimFDwncXDgYJEdJSSGAQ8Vv4Bqd2/sHdcSQY4bkGDgFJIXAZ5zFcW03i1FYS4rFxSy0WWFz Z2goq1Iv4KTAmpXYuLxHxG/G98g5ZxgPOJr/OB0zZW TQ/cgRruLB1qwwJzOkohre78tmUMcX8Z19CRmMNZg/e0J5pnZ0/biBYOCJGTSOHC2kOJUOymYsEBV/XO LYKUqAk+OsE+XO71Bv37If+NwQ8Tq8a1ImX77Z2rYeLNUE/2IJPVlVvCLG7uevNXFXkU1zACquPGwQvy 3fzRCJkOQR08/HdoiB0V95InY/Ua7vbR8DSAR6gNCH DqplpgHXGYmGcSJmJK42gZdF+X0Lcp+xiLO0ylx/XJmMNI6XyvjO+wUtYuj5JwrSXlc+Das6v/Vg3+fE rzG395M5txIeqnPw3Ux20EG6iAQW7K3w2YwqmV3NAQtWHFDNOZyQ8h/EvRlm0wIZb94vWdYBKWG1o8g6 EgRHz0VJIKuMJsgU7+jwszvxhQXoyC4sOF04MqPY+N ba86PZxGFKVEN39mmWR7tV9l0dL9fafiOnxvVmYJczlum7t2kF93+FtQ5BOy8eDZQJ1YZye5lQrTbEs3 oF9n8E+qK8QiV9Z45sYDa59XfqV0/XGapjSM5oqe3dGjoPpUVwQLYFwCDPjH6pRj3moduk0N9nnt6/gn U2W9D+46MC/h6XiCMdgHvJM5IJWkT5DNA8pI1aUII/ H4Hr0nfnT3Va/2uuBgb3TYnVpyKIFdGuRH+oezqbFUVq0GStOR1TcY86MmhtYk3Or4kyXCu6X8FvHIyn OlUBiSEfz8MzyFk3b3EzDUolSST4FTT/kFLZJq3jp92dOSN30HayK99PHgpj2vkpXYbbnuI/jMFEAJAx EQFkzI+QgF/3OK93JG9vbRKS87DV7TScdC8md21YCg xNAf1gnNT49nwlhRUbeIMfCaEnMlSVLQZgLIjLqIxYkHIADslYC32qVuRuGHoOcK5haKW17gsbVRuoAP odCuiV2bhrG5eTmM7wlPDeoG0FzeXQgyRWjkK0Z1DX6rUD7epxroFaEm6Cp+qlS6UuMfPby7KxFoFR3r wDe+KlKDCKdshzW8xhZouAHmF2SBfhd22ZVvLD3Mpx 0HHPnWKq2JgT/VlrPR7L4RZehKqe87OB3ghdOx2XNiSTYzOVURFFe5aLSDNEh/vzPxYOoB1lFrcmUTXO u3QrmVytfTcjwPbIZ4JGZXWvUjvT5dP/VwAKqoLSWeUvQCYKoC9GihaSawKCD0KJMBWEQ4vfAL6Dd8Xl NURdCimiRRLX2vjwaF3dBlOojwMSisTkFhH9wyvJ7Y lfoVdc7VgA1vgpnZDFk+EQ7JxtgiYG+ELA2wgPwH/Aa3HZlbbiL9g2D74SyeU40TzbjGsclzOdTD4Mmv +ilfufDPnQq6Rif9/dg6Pey5BgA21cI8rCN+2WqL93hSY6h8OiY81Z4JNROPFAJS1ASh1sU2zwJ1kEae n12ef6P2QoTsqwPjP2sr1oSVLtH3MAVTk+QgfBoDnH vnRXPQggD9wF58uVBJL71pXc9DljbXMviFm2Y1Gr6VivzLQEWWaTkCP+pIim8kH3R8jPqSaxtrgEE+cl 3HMu2KBu0csQMDTyT50fdNPtTDnhxj2k8gk7wN64rcRtidB95Ev9a1Bx/ceD9baQh1fNbgeW1MrFsint frEyYngQ6GJOG+YxnMswK14lEE7CQEIyZIgHn3LTVH HsGy/hPZQmqPSOZ3TbLNJGWcPZlbBHXwwHKvtIV48NgB7IpC9ctqTy0CzHYEzGV5qFQyHcoeJyGL7Arq bYpYpmI3JyCESOORaXk2dVAqlBwFOFjOd/6J+40j/EF5ghA0O2FP9ehrFFFhFHeqJStEUZDhiEU/y+BZ A0ir385Mt4fAdj4ZzdglZ5r/UWBkWMr5Gd3URkQNdD QcWrsp7VkgQfWk0qPWxSGYmGguB2Ui4zBQADA2TibaRplstn5BUTD7LIP9N/zPFoqOGI6IvRiokqRzZ5 CjWqxKDWrYqabhuZf3fBYwl4DAEvuUBK1nx6w/EEDvT2ODqG0gU1OcTbUisMAd4GCudhHowfCturdG9S 8Nmf8HKfwN3U9V5JfNybxjSLdPL8IQSXSllO4Dpdu/ 0sb6LWEsWDngUo8N1AMCsQDA+TnIlxU/gjFZrCLdbhNEbhKdSbS//Ey+dWQkZfSW3Y/1BGD94nGAAmzo vQUdWEDI7GBejJG+GPB56BQaAf8AeAw18AAMARobKUlqVUpCYtgw1WEjeFqfXamtr2QwPF5O6f6XHl6q rE574PlP5FqvW73zABMwrrseMn16KO2ma9evjh+Ig+ c0bTJ3Xq5HmqS9cH2XjEmROtsSRx+E0Txkpfx76g6tHogJuDrbRv6K5+JouIR6V3yMY1Zh1C7smShtlr 60f2FuayefJZronYw8sNQt0tf1CLuvDC7LAjfB6uiuNyFb2Hl2AFlGzyIDfkbgJQk7W+EkdPfMQk5+jK 2daHo0YbGPv1MO9dW4+nWrVPUHGTiG9PV7lxYkdC4v Ulm60JinWwMbvskSkUK0Rw2k/8GcO9n36o0vyetowG/pHNtZ5lzYk6tUcKVjhKkzYk3SpjA96c/TAP9H O2oC/hAu25Vg5Rg0BYU2JT+GgU0V+N8s1mA5Pu9VyjPf+kB8AGKw8DUwPx1TCdfLMN6madD33uH1gve6 W9A2wZH5UyW9VAuxBmS06KjWPw3R+a3E1WHGlIEHvM paD4MgvqhRv0oJKjAN8ZrrkXC1J7axE15ACrtusEl06YT6UwkOmB19T/JgM0JHSyTwZSpg9wbP0uI4ML 6tocK7mGktFKaI8uFm0HW3hUzGf0EPvEFBfomonjH1D2wLlRtH4wrQQnsi7FIAJRTcfTmGGbJV+j5Bg5 Ro6T4+XNT45Pc1Ussbg5onJ/UemfqPRPVMW/UVUwqx S+nty0LmG3jCpFW1Mqc5F5B9xvdBnd/wGGAEGOk+PkRK/+Zl6fxZ6M4OhXKAKQ/8kUWUI7Vm0FaG5dJo Uf3umzPh2DB8LzHaInCzxgsLJ7fTl7aPjNxphq9f1aU2+mn6AqzRYe2KEdNtHMWu4qHosWbE+gnj8gvn aLtnOzIdu2ZoO2p3rd5sIE3QdObRWb3TM6zFTcPar+ cNvLORXdMTTjLemTvEKWr8RrDotQkCgthrorVstOqOVmUwcvCIIUqMERKGcZe6YxJAXxawbWnx2mLYYW CNrrzmh7zouZwwPwjVFQ8+SYA7TU3MZfqPr65FTcluIzqoGrTrz8kIVImCB8SEoy6rvsoQ8kULTzuFBy ByV1IHBTYSDNh1XgpLdKTONjxaCHZBWIfFq85c8mpu V/XuR5jNAPhVoupLe5DdtyOcs1UHANj61vabKFVR6IfKGFgSOGbxxd7cYciGrfwMoDTL2feOMVotFydA 5xsV4rWOzQO9CP7XEVLLB5c1oImZ/nhL92ujeHFXo2FcUm8WfKb6FcgnMJutqKcYYPzsOLL+TL52BUZB vVTmCYcNpARGg5XbYw4mXbMpSTr8uMRimftHFrNIJC Us/Mj9VRKEl0dSXVsbTSHjAuukLRzLXvpQW4yH0cNXksGQu1ODJLTjV4wqvGXZ9HHurzYOEm/swogIpb Z6E/ESJ7KoPzFmMeRzdInpLJ3eWOANP4dGdCYUY0iFnULV02vz4FskfnPbRkaZ3IajJWOHwQH7KfhaMQ WtZBOsn2BTLW/huGyH+csTfsp9hqGC+JALigTf3E/o wKwCJ/L5Y7GoZICSYjvSSxuPaQD7O31MsKPOWLIR0VmcWijV/QsUrms77RteLLVpAjzUZh4Dq7czDbec VscNKe+AhIU+fBoEomOTFCipQp3EgH5ybOcC0skB6HZZnS4sI9LDNmv3ulWmjFSvgRqkvjvvGGknb6wz dQEIMc+EUTIAz6M4fGrK4olCcoRgJxDddaaFOcLsAy X9rgCRWIWoGMP7eKyswWwmaKjDJN9D7YULmyz2OoC4IOg1dvQIH/1RGR760ZsEECnAq/MDAuschZrKOU ulbp4ygZYlbGxMQpJL50X4G1jFySkiUShiI456QUlaB0z9XK0HeTRLzS5U1S3A/T5L9dnByoPQWzX9Xt BzY8IzdQd0+W5jH2S73+iUb/FOmkH7hOH6s+iYmRUa k04H67N4c/PUsgw2r4L9OZf97BNO0IRdveQmenUZdlqLrqJ0092qmK4FahX9yyt8bA0etX54676mmsA/ +EGI0ert19GQ52EQ65DO8pTPHUyMABsgYyqbiulCUrTPlTkhBuMXT2Tf8e+hwH7U6RZp0YJbC2c7Ldpt QD+oEP+Fn6aXqpj91DPVbAy2kGsNl9gPtTVZK+FjmL n2JMXPIV03dZlhL3xCP5kNTAOsuKtQF3XJuwM6REZ7yuAyUGfqITKOdWXqKeUQFPEfgPYL3BfIw8sQJf 26au2jmK5BIGmL3ulKG29MYxfZDS1LHt/olO/4WrGFd1dFOFwmmv9OeLjH1nZ6nclkrYW24IQfwCEAv5 fX066+C+7gUzeHuUK2CkMc0KAVw90DvsvbdQ0KrnE9 0wmbNeUbzNT6bE5WfLlFwA1qNoFCWwcYK8qk1cU2PaV//AKzrBlbZgjqvXCmAYpvF9PX30ajTMWYnFFc U76eswAIdR7mXCijCWXZcf40LGqW5U8JqjZYqE2EPeFBJB1cnnKIkTPuXykdJayWlkuyJfrouEcyeixO VWa4BxfOKi1QbSCJdjDXNRO2FbgLijUXL5YtBekEVw eISxjpHjrOPkBDnBFmxK2+GtzIetdckQM5P1hxXGNArWFa66GJVmN5TUsh7NtzLu7qMyjrJ9Y+F5zCL4 f7Z3zQvqb/2Qf63xFd6ZozptvJ78GTiACDqqhtAf3SvsSEttx2aK9FD5bOW8wG13yzsrV4oFkR8RtCqe 1H3F4B3tbdeQ06LBnXNjIy9y7+oanYDvvge/hWNP9P lIDZ4AfvV8zyGI7tI3fMyq4SzknnUx3dR8rJbp40RxbkEHniV8NOsNze2Z35RYwIEONys2hpmBbuBpZB E/0pfYdAg3RxxdTafAmall4grn8+j7kP0reEogz68BPbMULA85BTnUY/VGzzUEASnfF1fKrEH1bqI1iM Drh6XWjwJ7lKkNaTDVnehvLW7cxHHgubBQpUPQxDcY jgHV7xh4jBRSzLxw7IsClJADY3vIeYjuI30neWwddAV5YRarNegfRXGfBjvT/y3RGqJRV9kuxzeCGUme GEhesEzWgQoLY5yOSs64K1GsQWOWB+Vil2IK4HWzwzUtdKdIbXPVbMzhJEnnMARGjDrAQIH5XGQ5HDNY BmOPZ1U0EkJyIdsvAfLgGu6H+xzNs4LpUp+0gg+Steph DuKxsCTcGehyVwjwTLnoLV7lxRKQRnckIhtATIPqcehUL4rWBzkmHAR9CVNcuSksmQWwK6WLOGmbHbWk q1pjW9ZQo/DYs3D4TpisRxQ3zqcQ4lD0iJh74Orzv9FthivcClxaoM+4Szk3FbEU9P5uKQ9vUaQDYqRk yH5aLOv+FDbtLiHKV1e3OQrRJIQAurF7IVDOC+qqHw 4KwCuRurfe7yeM9hL+XSDohZ9T6bzv5h3ZcR0WzK+06V3pD6brsCHdITU7JfOW6wjUInOZqcWtnXWrHe zPGyAg6tRSFeAlRWK+34FwItu0JoH4d1elhGtMLLbF9vQlHVd+cbEXA8h2X0r7Hl25cJjWBwVTZAtrU/ 1UyQa3qq8wBuMxWyN4Z/QvDfWOfOVQdnroVSUqJjkj MxQxg/OOSK4dWuiHJstAfLkPSbIS6SxQTQOOFVexDYND0hJo/lgMz3zit6cgrSLQ8iro9ovU8vp2UFjZ 4rTCnOpA4r1Jy2PRmNO3PizHakxc1JFNC8kxWJ1P4sXRlIMFQafYjsZULDRGj9EYjHC1IRYfJaTnXjPJ eBrlfC1ZBVg8XXoThu9c20g86r5lJc0ceqeH+86Z+4 Z0zkdotjWdlHQ7iH+NquTJyaig14X/nQSekdaKFrhcRXcnrLvwx4Ql9fUWNpgWs8tJFzImjn0Hnayvqk Bs95S6X/aMHZdrpWY06NbtDA+H2A5dheBMr8zC2k7za9zzXzXgr+C4V+IlXMe/eR+Ou390jJdFM9X0JV STQhWhrQV5dKnUdAnXoVB1wlHzHJPkcCVmomMpKVmr AGbPxBWUOgT6Rpqvgvekvn09i11FIjAuSoBuaYrIMGXIra2WFvBhriar9W6BRcwSkYD9b8QjDDSIFKZZ iwoSQ+ofNcLosJYX2nSV4y+OqRUXjGvwd0JZ5xcXiFZqLNRD5/skfu8enFIEE7wEbHBJ6ZQYdAbLCJzh fpwi8tS4hK3WHvlTUx/U/HlFX0LZkZ2Ivzwp4zPS5x OwtMPgyfHenjPS3ImaywdI0Ai42PODtiut0y6585jQSEVI2ox8qq1wylnAEKbOrYZZSUXlZZ8MUYjDdG EDyu6vNrSPJQyJ9DmswIehvJL0k389Wo57JlSNk3v/JOSHUA+A3D+w+66wVgrow1FcjNjTtLTzKVpK2nJfu 0vRrckOa577F56ulOp5MtveKpGXiVuRbpzrUrZaOGX i4lZdWPzgphV56h8RkVd5xekQHWxWKaNc5cK6wKtJ4DC5NOuLzGNm6XUOnn0FNvekZHPwlqqUUrbWmnf R4TKJyinFTvZvxU4I07ko1tpP8TWoW9IINxQB7Nyx8zgjPUzGk+BHWfgLYFcXLD1IafRccd+J4eDChNc 7nlRHwXSUH6dJhVWoqu4wQ5X+WRGgI3P5iA+ IUNWuTxhko39cQ4LkSmrrriMi/EEVWx2W5HWG7mFj6eGU/ZE+WBPlMJjuYSRY+Q42+reMFaDc2QYI3JA p7HwDAcQVLRJLwAkTYV0vhFp0apDKjt5+WTQtQ5rrWE6VJryscVfik6AXqO6JDPCH+VLe+ItFmxB3/mW V5u51gqJuyaS30VzQB9yEGTCQ3iy7fpxUP8pcMLW1T 2jfPBPlE/kqgiy4Ei5bAW+goHNi93HY773Oh0U8jTzqL2rrZqvwZ9zpV/+dmIcLzCGX7oi9HpOkjSzCC 0QpjSU9wOTAx0MzdFS4un6yhlRkzRpfeTDx1LXHv2TW04IBMqGzXXAs2X2VN6Sd7XwksbGx1ndIQVSD8 rm5wLLvaL0LSfVMrt43HTMgsB+HW6T3pTjPE5Mg6Mm aU+cjhY71RH9drOPh8G3jkXl02CNSv+Y52WwyR42QdydBAfP4Phuf0L2Wra7ZAdbYWgAreT48g38pYDp 4bnYQDF6KCrqxHF99fcIQwjzl7N5VaXyTGW9GgBpMW0TycIg/oiWC0GcC+MY+Qq6jxJEgRnMjnkxCylq E53/YqtXBSyu4ZeLGQoQ58E9k3VEtPvcb3KHpL+CB5 +vBQleHF3RCaoGyGFw7ZYTevWidYc7RSp4eqlry52xkMKKrh6rW+InygdkPvngnyhftK+ufNExouTL+8 5Mb3Oo0f5GwuTL6whH5nEP73y66Ee+5ygf3rdz2t49szr0X38l+98kyOr9gjRx5W1kJ9qFGVqNMH2AS8 1aQYb8YYvpG/wM1TUqEGztohqn6lxQr/iJ8sE/UQqP mCXbvB0NVGFhKKF8k5ABnz+56OwpQzXdZ49OimPQ4mIIodLoy8jr+BYKj+DpWc79CMpBsrnhVYvGSKkc 4BhwqYiIQLnR3ASV5fK2ddsZYnUBOYYU4AYplRb6dREnwwKmOUFDJTbWirlqh1L1Hxm0k3SRavZwweNp jEOIOBZtMEkNDWrMi83uscEWffevH2+lHxqUtiltgy UlIcM8LquABOLa6RJmDIiMH1kO3UjzGxLBUJyrnAsUKOt8LduL3NBrMYjAxCJhyrILlRjqS3c0HiQCb2 S/ewWrTs8SgW81BTfRWK/M8U/IwFQLhWaJ0AxZk5FMKsL4B2wipdlTKsBDg4+i1zd3/BMjivNbD/aVdu 813PhcvGf0N0xHp7Zi23l/tD2JeoCdPfAtyjgZz7EU 16SN2J63NpDMy+qvdFSrahgsDo4bb23tUpEeQgjRzOJk7SFd2UznCPBiYMNYYHVUu0XxgFOgKHWK3fW3 rHiN9u6byPy1ym7dS+5QxBegN6o08xUmeebsJ4we7ZovhJ+tEl2y4a4+JSPOT8rA1dclmcWx/RMvMbG6 5XKsltRc1iESdxJx/CMofx34UfRge+KzDNV1R7+04H UOwV9CalCxI6g+1IF/gfe3L7tjtV6jSsF2T2YbMhztZKx61EAiebNQxfX37sTlvkxLlfUGRpPLaVcDLv bcX5gzkUEDSFU8Tw079tC29blOxBTX89l+Mpz/itME15b2PDkUI29COs7RAeswDdEyOP2fttUHWW1fN0 O9QscZn5P2D7TwczGMwS56DDitnlccZ9wtw7QIiQ4D UBjs3mxNNH49D5hWyyIX8xLZ8Q3jVKmKbA6y+AztiP1ZHluMZ1z7c2OHq+Ki8iyWOpD4NEDbeexpIMob qfw6h6POjPMaYQxpA30HWP8w96AaQgoV8maSqANmZJ5tlEiHHt6bYY7zYLGqeSnxcXyh4CCmebkFceWK opC3oZYKv1NVfTQgFKz+BK5qWuOpaR3avqtV6qDxu6 m2BgX5hI/F9XyoNrYYmJml27IPpZNSLx2vPkCGMocqTOIYNB1yJ8W9XSlelson8t8SydV6OERQMCXAZG FaCfiwRXDY4N7k3EnhW9IZ2Df3qnSMg/TV3yonjZ4uZ1+jRzu2YiKvSRVW7GkPq0T6MtMlbOcvfGYrQY JfMFnPJAgnLQoRDIaCjUwqKyWhUAc9dmqFxLWx5+QY OMBQ8WCwyoiGZiKADavsiU2gctMaG5pihiCFYgyxUkmVfwB8RnoxdYkNAodTQlFIrOnGZohSus1IONun rZMUJB8R2lpj/k7d9S0yvxdYfMDpGQJrIGF+R8zpRZ9T6ErKGAjwMHkMtdnCv4AvWi93vbrixHEyUQIe MMK2lDE+F4z/IiHNZFTkwDX756tsxrjeKFN1j3kq2h vhjy803/zIJ4tEHVua9fOIVBqkkYdW8+uKyC08O4N9vT+vycdMhyrEl4o6wBr5rLK82gjW1D4x9NxP9x r4F8OKUAD+69tLO6Hh1el/An9Nb/xGEV/4z7niD+jKOsY6/Dc6/57UU8XTu5AUvZaythuLZkmCAcUIzx HNGXXgkujBc0GVXVoJjczF3aZ9lMIwmtRNkzXxnSAW 1YGKWbgXrXBvKFomB5qB7oULbUW79vpxtFG/4ZkqFyMd1GpL277ulx3tw9fVbhA6hupeUtu1hdFbyEmb BwNvlwK5YI3TjgSKyU5oCMz32vu49s3bjugHf++7ljV3Hbb9MN9wGbh6pWzzFXoxtxlH5jg2wXs5iVt1 MR207nxmanM/9luXwmPJrzHxWPK+hhhQj6XAkdtS9O dnH87imfGvKxj0Vh2dWPIfM+VjLR9xbmtz+5iD5EwKYnqcBx4ndF61omimBc/FozgnNlB+tInHslJtTT bVhgaW3W4aTwwiNFjDtNH+2WJjTIuWUNjwVyGPSxu70Of6waSZnFUCXeO76WAnKH/PkwFv5k45yiPner 1xbrFkA46h0cKwMCdw8XPxNQZVwwWGQh6gTRN0JaMC wVnblEVpOGeagnOmCdw+mWKs4+EmsXVO4LjEvsDy4P/dlQ1fPpzK0qWZ7rZqm9gRIAbABmLjlTfHGmtj VFO7RnQV5IbAUX8aUTV7vGuXRo2jfZ/ZWcTNtuDFW2y9j/MmqZapBx7WO5izgRlo5NgghYqymoTNk4WE gBAzsZbZkd3t3L8lxgaRuX2ZuVs0rLq+xoUodC2bOS lv2yq2MXLL4MlON2PMR8taom2zykYF6mok6bYFkhhB+3YPiC8MmnzhdrLhR/bSRUDdx2g2poh41lxvQs BNYM3orv5HWEnY6r1qRe+sOqknPoJ1+d6KBVClZnIlTfwPo2yGHBbofCNtmqUdJyQ0Un4N14d5Va7SNs fH5JSMAyjloEk8xdzd0C5w2HraAS99aHF1vxXqlxPt 42CHThyqfCXcURkM7ya3Mnqy1Xzy2IeQf6AqawThDO5UMaIJU5nHrnUTL25FyezgLbGuR+KxNNG6/0Sc zSr0bnwUD24Ri/ZYAMTal82Wf+J1EgZnI5acgi7mM0tC1iRIMyaBzwBcRM+U4oI3nxVF3cpXeXByTx5H lNwWfus7F9dkZzHirIkQQBiMM/PJleYB0xZJq+LFY6 i8hivlA7/zSyyK4uk09UgWG8uZNYqLK8/gdyo9oCFkVd909YbvBdmJo3HDOMlEMbkxcXEO/NIKj+USwR XXw2VDwV9kPR3QYJ7X5Slrh9NbAsUrDA1K3GfF4fWZp+PxFSOQgrn0MDbk8aEhoFuTF5dDD8cTyPP5QZ cD/9CJRhaCvUOXfgG5GIllebxkmPfz4EdChsC0WIOJ igscK8lUa+yFJYpQDqL641PThCHaVXTuBJADr9f5XC/QPOcz5kO1UwJ6JhzreLhLwqKYEONLCzkz8jtX uOcP87RuEU1gQNRcQSuXt7lxcVsd3xKQsseo+ucDb4UEdqx7UKs2SOrvmjxFuRzJHKvJrIMYuWOnNUdg U12pyBZSCl9HIJvf1+JEFWusMlkZF+cS/iIAyVqNPS EveUfgYJoEfq84sbCZ8cGm04vbj6adolHu0FqtndSvQ6rdnzRS+sFC/ERZeY/dG57IMcpJI2sWwXZPpL ciF4/gMjkMdxUKSKseJSR8GWLOsjya1DhGWQeoA/ioQw1V4BueCRfaTv+7QG2PDuwN9BKweYGPsYQt5k w80Yjba7eB3vhLvKb2aGIEcOWEqOu4KZYUhB+lBDhs KMs/kfJ4MsmUmJ2k9E9bwe9bF/JByyN25PQStlycX+C8k5TVV0ja6Nf7Wg2GQ+TnagZ8rYHdtAx4waK/ EmrfbXMfI89QJ4hbumZQ/MWgPAr9LXA1d78S4oaYFO32nqPGg/VXViH19Til9cywL+p9qB/LT4k+d7pq Jh7/xCuWCYaYzhbTZVe80qtQfFavNna3VooEZe/Ben vl8U+RjKugAQVcnhIK7Je9sbaSf0lB47Gojh2qkxB5VIiWFibe7iyKX3/3IaAqgNBbsV3nIRDbv0763b /mv7OkA9w30avkMq6If+Fkm110L6OB0tF9oJ5r0sWI9n5TE0iA8VOHQL/MsrVDJZ35jS6A8fJSqE+Kfs 9KHGbErPU6viKWksw7oErEV5bmbvt4qanGUxvQOJQm 8YGCTOcjhf6lFQnlQ1He7vyJDLa0IHZmOVDzsHhuHsA0ekT+iyaZ9BHPUiwCxmrCcndyMZs4slBKcayF f3hXmA9VoPqJ2sei8t6qTP+pZXUxz5cxghSigTTxX5uKVFQDoDmSgtulwis2woO7JC166MIKO6jkttrO IrOvsL9lJ2QdtFe7dmdwPsp4T52bxvn2fxRRrLHukY StnGziCW6OARFL8VyYojQANBRVulWkySBYaUvanccNv4R5UqIr6RdDSfUZ+2Ys6L83kGirHDhBIkPBO0 IacrOpZvDmibDPfQLlbZslVbLsydlXN12PU8ZFV3qKPhA87Sff31n5KJZCJy0FRd4Pp9HCuSYzdRHKAz GCuNXUR2xtjsRIO5uTU+TaHLEu8MpneXmDCfGZN8dl eruJd5ahPNUtL2ER04OQHvkbELLYE29M8U6I0gBE+Y1VrigN+NPpI2WeX6D/iJ7H6HO2Wf9gxL15IPsS KxsbLIc58WRdIB+x64L0E21PmORtlL0qpnvb8SSCjgR5TEVsQ67cAw+1zvFjZiY9htDlCMQwDK2HOLau Co/t9iCztbOAYrpoCWi8Hi3GkeHxmSwmuUoL4bocAO FpT9TN/4SXTwOcAR3RAwwOGt+lBpH+iYXHcomF/uyFsaZ/OlUbHLuaZ6n5lhpf7zw0Pq4ZX6/lCuC/Ef jOorzHYh++LyF36FnKaX84XZbmh1GDQLi8YDU82Y6dfPjjaJL313ENne17YUh1ClzBKKBDgtgql/2ff/ +Ob3hkY0E+/X//+V//+Z//+59//79//uPf/fe3A0hQ f/77X+eKy0n//3+dGy6d/uVnJNCf/njzf+rjSw/kj5O/TlqQLyg/bT2Kpj1SV72RAmKAgU4b62f0J/7O dCA/ZH0dtyuk5uOJO68eCnnjUH7f+nvTkDORj/4K+tkSdvV38Q+py2WhIac5rMqc//l6O5cHIvF73S5q I9O//MSK/umFvyPhTP/f8gve4ot/H7mG2m4/+jtXlh ft9ET+WX713zNhp115bHixIfoimLSMQ/lhQGY5lg+ZduT/+dv7mravLDqxSkp9D4is/vsJ5ijwiI8/Cz 558WreIu2li2FVez1cpU4uz8k5a13XK31k1/v3G2vx6tbJrR96mou+34X5rN+XhA61KX/Sv/sYVrfi5K TT2umJ/DFb0UyfZ3+10r/4bUKTyL1onaCqJ1ak5t9/ q+5oo6N1mSs4vTgx/mapduk7gip9/c0y9iF/vTqvrLwGk1NmH/lF6IowV/J4ItoxkUmh0yHgeotLSrfz 0eNvG8/dLd/RX0d//cS5OifWPflbpMwHs+R0UjHqe5r5Z51pUfS/+rtGRST/z76V71tapaO//mp+mz/V TUxujO5/jlPlSf/ud6536Z0p+W3+1Dbx/MZ/WpvEyD b/+au24h03u2ijUZ+V7U/Omds/je0+96ew/VjBAy75xahnp8WZ+dyiyrb5mv3C//MBH65lU17o2/rPL8 BUHOhg5Ibduq/r71cyf/82hznTM748+eswh9fg2+/I7/2rhu9dD358ik0PtpjT+96G5Gec9s/f+8Z83q O/f279yGQp6H8f3dcUgS4l77E+23bMzYviWD359bH2 lPf+b+8LHi5cxKc78swWR5iIKx09Zj/WBJYv6250vB4na1gqQ8S/3n/3cJ8x40ef9dWF0x88klyzu5/l pUvUfQhf2O17lC0goK/dOXXMpmz7VuAWT+hXkvrVrjTyF/IX8lu/EuhXUvpVyj//3y/T5/970ygfkBPI 31rzuihaU4Q+0a/ml+nx/qfnAsjLl/d/PNc/Xnp2e4 5+zuCt3sOqxdxp4W/3TN+Zd7ThcPlxQ47s6qM88tO8jmrF/YfUe00E+QP56G/uJtek9ooNA7XozTN+pC EXVF9ztpafhOivaZF9fVdzgP+0JyAf/C24LgHA+rvQ34X+up495QF7cMC+Pj1KUr+mF0w40jZI/arKKP MTN95WO+93Znn/zL479qiP9phHxk+Aq89x9YV1+Ue/ uvnjQ/rppecOR+fS4xvQb93wUdKJ/VX0V/CPeoec4U9rv9n1zsBxLRUIqg8+X4r3e/GuWeU1pwJ+pJEv GALINA+Qg+/S8T4v3uZq9PjFS+FZncWyRocFZUT87T9vRvzQI/8+kKdaxn04zq+XD2mUx/eb+vPu4K3oFI/1 yhXtwXrleL+O/fwHmlX0F/7w3tJFn0as+O75E3i/gf 4G+tzjmvg4IgzDNQ6mD+838H4D/B1P22X8M+tz4P0G+hpAv5YOg/8S2m9c7OO+76/l7K/Lb/yPNubzxn egmuV4nger1+xEW787pS6b63luclp/o43+tubVUcgrjlK24/vd/E77nzt9/alpPiWc08hshQs8d1/1ip eeKD+Rv1B+4bmK5/q9Pzcaem5mxkP60h5qAhWWbhgG tcc/dyp+Oa0P5m6f/ksVDa70p7Jux3MX+soc/vymmV0wf+F0eBht4Qaid/phAx372iqNh7sMVlsFlj97 iHFS7ev9PXj/7TslrSv07Ls9G889dSnf145mF6/KfPk6P/WrmfkD+QP5vT+zgG4NixM/Wp5lqmC/v99Z +lXK7/p0ksEGGf0dlQHeVgl1/rwdOks7Mt1fI903hj ZMmxAK8jJRHSySYnA7pY5MTD5tX/hSewHA9docc73DgKhsld+UdXN/hZX5buGno7pONdZ6Cjz4o04iw6 t0Siu6Fy2+94LGaYmLs0zdV81avWw/kL+Qr5CD/b5eT141W2Tlh17O/A4RQz9ntCc/beBXf3495re7t3 fb/onH2ei2k/crj369Us6ulevqrMAfcLl/+qv57R/9 yr6s++kzBz0wn81QbF/966/gsnR3C8+6v/6mveJceDg/tF/28Tvh7u/18HO660/vl4C91qDVbgc602QC 9LvQ4oF//B19ckyz2HsLj0Gwh2hIVbgwW04++tXLn7/4ePEQx3KPws61vX1sX/7ft3pRqaLYQ+ilk/71 S99Y66wML7ACCR/3I3A752vgl8io2iS1/ncavl/v84 Xpvf+a3us56IcExm/K+Ge5a1isLJ0uh+5i2zhZY9R5ka2/n00MA47my7FbMI/1ygP5G/U30ez3Ey/yMZ +OhdF9q8H/hiYeP6R+Km0za38Osk0BGzp0DLP2nI/R+/6iiuDKDbwB9O+Ub/3akqG77AwRmxt+OaFfzS 3Ih74B/UbUe9f9cbwAFap4J3+e0K/goe5uZc+a2yEn vN5ju6teeM77hqcm86fjG+sbyG/9eR3oP9/Rfzl7nC+Rv5C/kN/276P1LwJozarKa3D5tWI7o0nZ5g+u j3K47efH8PITCsJaqv8V4Ou3+84BwW9Ijx9tM/Wryl/I7/3gGq0/s2VWtbjz+0SD89I1BlUB4NuF1/2m ceEN8nFLl+cl6K/g/Qrer+Q2Mk8ipG+tzF9P/1ypX1 W+Lh10sZ1R87tZ+e9gurw7FgY4ASDv/coq3c+Rachel+mRm14d0q24M9sN7QojD+6uwSnEpnyq9xRG8KFey zm8+d0vhoWq2TgF3qfOm+029uF89r7j4as51Zkbhm8CUU8i1D+fFUlg92T1nuridi6o7FffQOtz7tlOG /+gw877x5PoFz/y1E+0D60x45P6/Pfpfh+Ff1N+1Xl o7+K+ohdc58Te0vm9V/eS4zlUpG+eECsKhPvezQ1iaBVwiMR+KwTSJ1T/TN967Ryv52tMj2htg+G+Zz2 w0ko9Qk69hN591Duo8p6ubaDXt5qeT9tMjrnQL/YrbNaiZ4Un5Bc0/Pu5Xi/ptlzKU8y94djKhgUC4e8 wlGm7Cbaoa4d7rCcMy23sJd47vJoQlpa5U2Z4gkZ/w y9s5UczBV4i9O4E5r/anI35YmO6s6Ix/7DYbbpre4lhW5HdF/6G5l/+ypyTU8j81W3I+pXlZ/2jZNO+9 VNt/zUr7zS+tqQ+uPLGfvpn215axeaNu5jYgqH8k90E4GqwT3q6ze/mkjTvlHpl75H/arS+B/ttm+s3f 4ba/f/SFO/xha5udgR8y4T/hhU2x7wev3q4P/XK/16 fdZvIb/JE7F4Bv+8j7zlAi0lAk/231CcD+rX+oZ+otON4znrp4+g8L/B6n2zC016ui4qTd/89kfSISif +0EGD47st8BPz4hlce+WTEO+obxDjkN+ID+Qv5GP/th0D97mONm8gFgEgWI31NmLN9dwr4M+obyivKK8 oTzerzja0/8dsstag34K3G8C+jxU4X+ls+2Txy2//C uOV/14fTgbk8u4Yktdvk+4YYh2z6++psLVW3nD17ScoqwXC67j25t0F086rdQgF2D+y48vn/jbz8ctz+ Jb6kn3vVC0v/0eqn4Su10+Naqdv/5+G2vZrw5Hcur/O5lS8B6+jsNPvyr/iuOAf+se/eo7/irH/f4cwv /Sx3/j+H4c5/tfmOST/wC5kHuxqfgLtc13Cah/ym9n 4f2u3v/t3v3LPka+oHyf7+tq+4bC/4m3r6x94zyGi83cZ+77e1ptm5E0/0n4WQzYdfPyiLyNlmZA625C Md26RSgZNgAyu4qaQuPVZ8V2V7rO7tad6M+mbkatTKy4Ak3cz3O1kga1uH+P0gcGcfRiIclB/N4fqbU+ qRaQHyjf+pXOi2SDi1oy+7+T+lWVwf/IKmA2h0W+UX 5Cfu+R8KhyWLFn9y1/j97/X/U+X1Dv/563BW3tl0H3/r+pX+X6k/rV+mvd3qkv5Y5n5be5nR64Kw+i/I U3iwTHjFJ+Id+pdxXiJ3X+v7wsO8oL0b+Ef7l90xxRyt9+om013vuhY5Afbl2KLq3O/pcwTNx4Bb3t9g K/G/1N/eqmkY/+pn6Va/nvdDUSqdo7aUC+iaEy5djl j2uuJqvZiGs04GIBZ54xxGB/WiLqCfl707/+444L/Jcf1iP9xakXewOn4zs8qRZtO8t1j/8ra1xo2R6q m0RpXUjGHh7nvz/ySr/xt9H+y8w3zbzwvE/8q0Mao0A3vqKk/g61NAL8/Vraryp/Q/5+896wp27H+1Wl B/BYibhzdo3x9p0nsmbs4jfzJuh1BxLN1xPUP/tVpR 2pDD1YbxEm7B16q/PYd2btMjW84exz6K+44dkJyx5eetW/E/2jtB0P7b4uKkCp4krnKeT/12dL+9VZh2 2iv/Bvt4n+lw6t7ml6mtB7g/apmSY3bqsK49ugY3vJv6mn6o5OdmG5svWI+Qr5eL/LSQ38KF36r4XV+Y H8jfw+9oww9uwE/A91CjxA/7Ia5X5Z/dW+b7WpE2E+ SxfY9kpVA0ad/Rl7n716uN/F+9VA/ob8/c1a3al8F9q/T7o4qd1f9LFq2u9t7hR1Q8IxkkVL2jboPv2e 1lLD+mxYn49+tlp8vecspQ0gfnRdwR5gi5fa7a+f6sKk6lmx3NGq3kc31oWyr/Icp07Ok8Ai/ulh2s6v 6c3q2b9hHK75exiCO4b38CpjM8+q/MdioplAjE4a+c B6FR/yB/LxfqFfGfQrS/1c81c3zf7w6UvB/muZo4w7fe4u8OoMiDM/7ZMG/yuLQPlA+Y3ybW+24h1arc vfzHA+iOkwdN6i3/kh090foE4rdyN/5ve5n13h7Z+xwc3olIS769sL9aE2LKgB881xhy19uh5+V/51fx 3ng/61v5l/gvw+P/To68bK37I/Pojs0WV7lL+9/3XY r/ijyJC5K/zr+ngzE06rfv7+lfdB/OhXmv06+rUy5xzCikHjN/dxO1eI5/vRr9K/wo9+lXdD/AlE3Mse R7/tUJa46by/+gSFyHZ041+hKVPRHnvrqh/9zvTlst88MVq//hX+069+ENuZ/uVXX/Dgr4mbkn3XP1Mu /eo7tgU/+kFFlHo25bl8dPNysAF00q0yDLN+VXLSPy qwaa6CZc3Jww/o0v9fl/0yyV9KZxsRt7w9ecHG95Kkfta2u0t8/1haBrvo38+O80HH+pLroAWyGzd4R/ SK39UTLau0/7TcAd1F87w+Qr/y0q/OOE+LgTbv5KmV/dia9jg4xi1m1T866b/XoO356CopndBX5gG9p4 k0HfOQ7dbp0HGIhkhJ/i5SfzgbN/m9X/VIh1mUna+t b7h+yO//kad+6DzVgV8o8/sjT/8nZm23EfZFAaVq/So50cjv0/dDPfWrynfID+PR3Dhg0/0Aur6KIFQo iUIoP1SwyNcwE/019NfQX+yUFjkSVWtFirAExB5JGk7XOz9KCM51MfXADyR6bfe+qi3eysw8912pjtc/ 1qbi3o5kexBu/YV+5Y7+bv0G78ydN8U35Zu+6d76pL sjv/VJ90D+fvqeH/0q7dV+9KvUG/7xXoh0lU/6zQAe2dTudVwFh581RQRPh3tfB+WPfWNVGvKP/lxtUJ F6RIzQe/qb/3tlI7Lxjb412wq0haTsn+5x2F/yn00IK6yxgtqha1w0pqU82a/G+039qsrj/aN21Wp2cY JEFFRY+S3/qamW842k/PUryo/el5tfL+mNlBbG0M8wKi3 16tI/zyp5KXr+RNyJuQvlF/I7/PQ+FFcLZJ0z/E64k8jGmrYHSuu78510P6gW/1N+9VNt/yB/g70t+xX eRl1Me6D/u0B//ZI+9Ktn35S/PT1UkybauVgGfM/N8ZG+G1tZsc8CsT/HqN57n6V/6NI+9VNI7/3vwH7 VchC/iB4uEvApxCsWComb9H+/79R/hzUac54HL5Uks n6RsB+FYjPEKlfpczZ+/2Y6C/zOnTbBgmtZ3RZMDyC+JkmCgcKmQhuKJOH4qaqrkCj4IZyfk6pE/N59X wRx4tkBTjXtn+xer8fq/h7zhDjCNxq4Geh/i0JiHz5epMc7wG7oP2MfiSlDoLbr520s7rnV467/db5OP pV/rEb2Ps3J6lqZ7189t/U9o6tulLica/zP2l5e2Pm ckx0Ir/0E9O4oI1LwyYThGBbd0i3R6tGg9xKPW1nt6Bo4TbSP8wNduwaeS3P3G/D2x1N5zp5uZ3/Cut4 K3JbqtCO/oQB/6tI/igoa00W6N5P3/1RWPtPhgXyA+S28Ot5TVy5MqS1g7NK0mjIH/R0DXQ097jC9jXO L0CqfOtG4/FHpIYDVhqttrglX1XyrW2WycD1vn9I4o FkIgby+di6ctwZrqwoHyn3dUGkPkJ7hqotu/vOtCIf/YX/Jesus+kDfT1bg0snG+5Nu698+NQLJVh3Gdd6 5+ZVX+11/L8ke/8q/JusLKcPAgZUbt3p/+tKmT/vU38ls++qXaj7nm/izZ59m1Cs+TMAhA3jYR2D+yPe yshitR2y/SzhBHv/ho252bixgaZ98+dj783geQay6i py26Oh1+/i08AYV7i4G0mP2+aucUuvCKase3d20Xxc/2R9pf++metal sprayer+/Xulbm8i/PF/bX+/02gL2ia028 w/3dz53i80/s8iv68rozR/vr84Vd/v5RjadMdz/7Hu3/vEef7+/R3+8eA/k4Vy2pI2wvEq/Jyh88hrri QJ8dQ3IdwG/I7/RRudvEr3V/I5C/kd/nKVv6+93S3+ +WgfyB/LOerMw8xedW/PFssMyQL5qv/o6FlLd9A4gN+sYWhxxH+o3edPdGvqyRP0v+seF/tWfv9/fs/c HZtrBlT15vUec12IQ+tWfvF/Zs/LnEXq8wh/dHG/Eq0ce2nj54/92pX51/9J6B/I38Pu/eqV9l/vqQ3/ aNvXp/tFfvF/bq/eBerW/zgE1Apu4O1lmCF+Qr8g3P RX8X+rsc+ZB01S0Malu3y+xn1giy4n/kD+20IF+Qj/5Bu1mPc3dqfx5U09Vg1jc6aV/8CdOCid1NlpJn O/Nl1C019Ll2rQV/O9++91/wxnqbv5GZk5y7+ukM3We9j840LZKL+RPlJ+FrjwQExXa2n+0b29q+sQ39 zfPBykd/83xQMr/4982i81rI4c3P93Ilks/YsF/tPB +gCt4p3J88w/rVTSN/Ib/gM3qL5pLmCddNhNz+7/e3t/68U7/Kue0b+O5f1DU7nY49N7lsuU/9ao3SmA V3qlszoNA/kD1MEvCubUv2J//2Hb3f3+Eoj/5G+qAp3VSAPd/2vds+ucu/UdNE486+wr99b/N6N0PWkh [id number]5B8NuFnh3n6 [file] [id number] ID Date Data Source [id number] 02/06/2020 07:00:20 PM EDT [facility] [place] [facility] [place], [place] [address]Tel# Surgical Pathology ReportAccession #:[id number](s) ReceivedA: Contents of femoral artery rightClinical Diagnosis and HistoryClaudication DIAGNOSISCONTENTS OF FEMORAL ARTERY, RIGHT: ATHEROSCLEROTIC PLAQUE (GROSS DIAGNOSIS). Gross DescriptionReceived in formalin, the specimen is labeled "contents of femoral arteryright" consists of fragmented white-johnson calcified atherosclerotic plaquemeasuring approximately 3-4 cm in aggregate. No sections submitted. Grossonly. jglgmm/gmm Reported: 02/06/2020Electronically Signed Out By Serjio Sandhu M.D. [facility] [place], [place] [address]mdqEmdaebwzq component performed at [facility], [address], [place], [address].[facility]orted at [facility], [address], [place], [address]. This report may includeimmunohistochemical or in-situ hybridization results. Testing wasdeveloped and the performance characteristics determined by [facility] as required by CLIA '88. The FDA hasdetermined that approval for specific use is not necessary for clinicaluse. The quality of Hematoxylin and Eosin stains and as applicable, forall immunohistochemical and/or special stains, including positive andnegative controls, were reviewed and considered appropriate.ICD codes I70.90CPT codesA: 45205N Name Value Range Interpretation Code Description Data Tisha rce(s) Supporting Document(s) ID Date Data Source [id number] 02/05/2020 08:43:15 AM EDT [facility] NGUYEN Name Value Range Interpretation Code Description Data Tisha rce(s) Supporting Document(s) POC NOVA GLU 284 mg/dL (70-99) H [facility] [place] Duarte THOMPSON PERFORMED BY [facility]ICAL STAFF ID Date Data Source [id number] 02/11/2020 12:20:01 PM EDT [facility] [place] kylie CEDILLO SPECIMEN DESCRIPTION PERIPHERAL 2SPECIAL REQUESTS NONECULTURE RESULTS NO GROWTH 6 DAYSREPORT STATUS FINAL 02/11/2020 Name Value Range Interpretation Code Description Data Tisha rce(s) Supporting Document(s) ID Date Data Source [id number] 02/11/2020 12:20:01 PM EDT [facility] NGUYEN SPECIMEN DESCRIPTION PERIPHERAL 1SPECIAL REQUESTS NONECULTURE RESULTS NO GROWTH 6 DAYSREPORT STATUS FINAL 02/11/2020 Name Value Range Interpretation Code Description Data Tisha rce(s) Supporting Document(s) ID Date Data Source [id number] 02/05/2020 08:59:02 AM EDT [facility] SPEC EXP DATE 02/08/2020PATI ENT ABO/Rh B NEGATIVEANTIBODY SCREEN NEGATIVETESTING SITE PERFORMED AT [address] [place], [place] [address]BLOOD BANK COMMENT BLOOD TYPE CONFIRMED. Name Value Range Interpretation Code Description Data Tisha rce(s) Supporting Document(s) TYPE AND SCREEN [facility] [place] o f [facility] ID Date Data Source [id number] 02/05/2020 08:42:49 AM EDT [facility] [place] [facility] Name Value Range Interpretation Code Description Data Tisha rce(s) Supporting Document(s) PT 10.3 s (9.2-11.9) [facility] [place] [facility] INR 0.98 [facility] [place] [facility] SUGGESTED THERAPEUTIC RANGES USING INR F ORSTABILIZED ANTICOAGULATED PATIENTS:STANDARD DOSE THERAPY INR 2.0-3.0 DVT, PE, PREVENT DVT OR EMBOLISMHIGH DOSE THERAPY INR 2.5-3.5 PREVENT EMBOLISM FROM MECHANICAL HEART VALVE ID Date Data Source [id number] 02/05/2020 08:42:49 AM EDT [facility] [place] [facility] Name Value Range Interpretation Code Description Data Tisha rce(s) Supporting Document(s) APTT 33.5 s (22.0-34.3) [facility] [place] [facility] ID Date Data Source [id number] 02/05/2020 08:03:38 AM EDT [facility] [place] [facility] Name Value Range Interpretation Code Description Data Tisha rce(s) Supporting Document(s) SODIUM 137 mmol/L (136-145) [facility] [place] [facility] POTASSIUM 4.0 mmol/L (3.6-5.2) [facility] [place] [facility] CHLORIDE 103 mmol/L (100-108) [facility] [place] [facility] CO2 25 mmol/L (22-31) [facility] [place] [facility] ANION GAP 9 mmol/L (7-16) [facility] [place] [facility] UREA NITROGEN 29 mg/dL (7-24) H [facility] [place] [facility] CREATININE 1.27 mg/dL (0.60-1.00) H [facility] [place] [facility] BUN/CREAT RATIO 22.8 RATIO (10.0-20.0) [facility] GLUCOSE 274 mg/dL (70-99) H [facility] [place] [facility] CALCIUM 9.1 mg/dL (8.4-10.2) [facility] [place] [facility] TOTAL PROTEIN 7.2 g/dL (6.4-8.2) [facility] [place] [facility] ALBUMIN 3.3 g/dL (3.5-4.6) L [facility] [place] [facility] GLOBULIN 3.9 g/dL (2.7-4.3) [facility] [place] [facility] ALB/GLOB RATIO 0.8 RATIO [facility] [place] [facility] ALKALINE PHOSPHATASE 162 U/L (45-117) H [facility] BILIRUBIN,TOTAL 0.3 mg/dL (0.0-1.0) [facility] [place] [facility] PLEASE NOTE:Total bilirubin results may be falselyelevated in patients taking Eltrombopag. AST (SGOT) 13 U/L (11-39) [facility] [place] [facility] ALT (SGPT) 15 U/L (12-78) [facility] [place] [facility] GFR 44 ml/min/1.73m2 (>59) L [facility] [place] [facility] GFR ( AMER) 53 ml/min/1.73m2 (>59) L [facility] [place] [facility] GFR INTERPRETATION [facility] --NORMAL KIDNEY FUNCTION OR MILD DISEASE - GFR >OR= 60CHRONIC KIDNEY DISEASE - GFR 15 - 59RENAL FAILURE - GFR <15 Est. GFR calculation based on the MDRDstudy equation, which assumes a steadystate for creatinine. Est. GFR should notbe used for medication dosing. ID Date Data Source [id number] 02/05/2020 07:41:23 AM EDT [facility] [place] [facility] Name Value Range Interpretation Code Description Data Tisha rce(s) Supporting Document(s) WBC 13.2 10*3/uL (4.1-11.0) H [facility] [place] [facility] RBC 5.42 10*6/uL (4.00-5.40) H [facility] [place] [facility] HGB 14.5 g/dL (12.0-16.0) [facility] [place] [facility] HCT 43.7 % (36.0-47.0) [facility] [place] [facility] MCV 80.6 fL (80.0-95.0) [facility] [place] [facility] MCH 26.8 pg (27.0-32.0) L [facility] [place] [facility] MCHC 33.3 g/dL (32.0-36.0) [facility] [place] [facility] RDW 16.1 % (10.5-14.5) H [facility] [place] [facility] PLT 306 10*3/uL (150-450) [facility] [place] [facility] MPV 8.5 fL (7.1-10.7) [facility] [place] [facility] ID Date Data Source [id number] 01/30/2020 01:22:46 PM EDT [facility] Name Date of Age Gend*PT [id number] Tatianna Soto 1965 54 years F ---PT Location Admission Date/Time Visit ID Attending Provider --- --- --- --- EPI ID CSN Admitting Provider [id number] ---[facility]iac [address] [place] [id number]: F: OFFICE CONSULTATIONDate: 01/30/20Patient: Tatianna SotoDOB: [id number] Physician: No ref. provider foundConsulting Physician: EMILI Spann was asked to see this patient in consultation for evaluation of theirprotruding sternal wire by .CHIEF COMPLAINT: Chest discomfort due to protruding sternal wireThe patient is 54-year-old white female who was operated upon on 01/01/2016 wedid urgent coronary bypass due to the fact that the patient had acute non-STelevation CA and was in respiratory failure the patient [...] VEIN HARVEST; Surgeon: Saba Smith MD; Location: [facility]; Service: Cardiac/Open Heart; Laterality: N/A; FOOT [...] file Gets together: Not on file Attends restorationism service: Not on file Active member of [...] rce(s) Supporting Document(s) ID Date Data Source [id number] 01/05/2020 12:14:00 PM EDT [facility] ([facility]) Name Value Range Interpretation Code Description Data Tisha rce(s) Supporting Document(s) Gram Stain Laboratory test result Normal (applies to non-n umeric results) [facility] NO CELLS SEEN NO ORGANISMS SEEN Wound Culture Laboratory test result Normal (applies t o non-numeric results) [facility]) <content>FULL REPORT IN LAB NOTES [...] 8 S</content>
<content></content> ID Date Data Source [id number] 12/30/2019 11:11:00 AM EDT [facility] Name Value Range Interpretation Code Description Data Tisha rce(s) Supporting Document(s) C reactive protein [Mass/volume] in Serum or Plasma by High sensitivity method 6.87 mg/dL 0.00-0.30 Above high normal [facility] ([facility]) <content>note:<nlbl:demographic_changed> </content>
<content></content> ID Date Data Source [id number] 12/30/2019 11:11:00 AM EDT [facility]) Name Value Range Interpretation Code Description Data Tisha rce(s) Supporting Document(s) Glucose, Fasting 779 mg/dL 70-100 Above upper panic limits [facility] ([facility]) Blood Urea Nitrogen 28 mg/dL 7-18 Above high normal [facility] ([facility]) Creatinine For GFR 1.16 mg/dL 0.55-1.30 Normal (applies to non -numeric results) [facility] ([facility]) Glomerular Filtration Rate 52.2 Normal (applies to n on-numeric results) [facility] ([facility]) <content>Units are mL/min/1.73 m2</content>
<content></content>
<content>Chronic Kidney Disease Staging per NKF:</content>
<content></content>
<content>Stage I & II GFR >=60 Normal to Mildly Decreased</content>
<content>Stage III GFR 30- 59 Moderately Decreased</content>
<content>Stage IV GFR 15-29 Severely Decreased</content>
<content>Stage V GFR <15 Very Little GFR Left</content>
<content>ESRD GFR <15 on DELIVERY RECRUITER</content>
<content></content> Sodium Level 126 meq/L 136-145 [facility] ([facility]) Chloride Level 95 meq/L 98-107 Below low normal [facility] ([facility]) Carbon Dioxide Level 25 meq/L 21-32 Normal (applies to non-num denita results) [facility] ([facility]) Potassium Serum 6.5 meq/L 3.5-5.1 Above upper panic limits [facility] ([facility]) This specimen has an elevated potassium level but there is NO visible hemolysis noted. Anion Gap 6 meq/L 8-16 Below low normal [facility] ( [facility]) Ast/Sgot 16 U/L 7-37 Normal (applies to non-numeric resul ts) [facility] ([facility]) Calcium Level 9.5 mg/dL 8.5-10.1 Normal (applies to non-numeric re sults) [facility] ([facility]) Bilirubin,Total 0.2 mg/dL 0.2-1.0 Normal (applies to non-numeric results) [facility] ([facility]) Alt/SGPT 16 U/L 12-78 Normal (applies to non-numeric resul ts) [facility] ([facility]) Alkaline Phosphatase 188 U/L 45-117 Above high normal [facility] ([facility]) Total Protein 7.5 GM/DL 6.4-8.2 Normal (applies to non-numeric re sults) [facility] ([facility]) Albumin/Globulin Ratio 0.6 1.2-2.2 Below low normal [facility] ([facility]) Albumin 2.9 GM/DL 3.2-5.2 Below low normal [facility] ( [facility]) ID Date Data Source [id number] 12/30/2019 11:11:00 AM EDT [facility] ([facility]) Name Value Range Interpretation Code Description Data Tisha rce(s) Supporting Document(s) Erythrocyte sedimentation rate by Westergren method 32 mm/hr 0-30 Above high normal [facility] ([facility]) Lactate [Mass/volume] in Serum or Plasma 2.4 mmol/L 0.4-2.0 Above upper panic limits [facility] ([facility]) <content>note:<nlbl:demographic_changed> </content>
<content>Y/N query for Sepsis Lactate Rule: Y</content>
<content></content> ID Date Data Source [id number] 12/30/2019 11:11:00 AM EDT [facility] ([facility]) Name Value Range Interpretation Code Description Data Tisha rce(s) Supporting Document(s) White Blood Count 12.6 10 4.0-10.0 Above high normal [facility] Hematocrit 45.4 % 36.0-47.0 Normal (applies to non-numeric resul ts) [facility] ([facility]) Red Blood Count 5.21 10 4.00-5.40 Normal (applies to non-numeric results) [facility] ([facility]) Hemoglobin 13.9 g/dL 12.0-15.5 Normal (applies to non-numeric resul ts) [facility]) Mean Corpuscular HGB Conc 30.6 g/dL 32.0-36.5 Below low normal [facility] ([facility]) Mean Corpuscular Hemoglobin 26.7 pg 27.0-33.0 Below low normal [facility] ([facility]) Mean Corpuscular Volume 87.1 fl 80.0-96.0 Normal ( applies to non-numeric results) [facility] ([facility]) Red Cell Distribution Width 14.4 % 11.5-14.5 Norm al (applies to non-numeric results) [facility] ([facility]) Neutrophils % 85.1 % 36.0-66.0 Above high normal [facility] ([facility]) Platelet Count, Automated 375 10 150-450 Normal (applies to non-numeric results) [facility] ([facility]) [place] % 3.5 % 0.0-5.0 Normal (applies to non-numeric resul ts) [facility] ([facility]) Eos % 0.3 % 0.0-3.0 Normal (applies to non-numeric resul ts) [facility] ([facility]) Lymph % 10.2 % 24.0-44.0 Below low normal [facility] ( [facility]) Baso % 0.6 % 0.0-1.0 Normal (applies to non-numeric resul ts) [facility] ([facility]) Nucleated Red Blood Cell % 0.0 % 0-0 Normal (applies to n on-numeric results) [facility] ([facility]) Immature Granulocyte % 0.3 % 0-3.0 Normal (applies to non-n umeric results) [facility] ([facility]) Neutrophils # 10.7 10 1.5-8.5 Above high normal [facility] ([facility]) Eos # 0.0 10 0.0-0.5 Normal (applies to non-numeric resul ts) [facility] ([facility]) Lymph # 1.3 10 1.5-5.0 Below low normal [facility] ( [facility]) [place] # 0.4 10 0.0-0.8 Normal (applies to non-numeric resul ts) [facility] ([facility]) Baso # 0.1 10 0.0-0.2 Normal (applies to non-numeric resul ts) [facility] ([facility]) ID Date Data Source [id number] 12/30/2019 11:11:00 AM EDT [facility] ([facility]) Name Value Range Interpretation Code Description Data Tisha rce(s) Supporting Document(s) Venous Partial Pressure Co2 50.0 mmHg 38.0-50.0 Norm al (applies to non-numeric results) [facility] ([facility]) Venous PH 7.328 units 7.330-7.430 Below low normal [facility] ([facility]) Venous Total Co2 27.2 meq/L 24.0-28.0 Normal (applies to non-numeric results) [facility] ([facility]) Venous Partial Pressure O2 55.8 mmHg 30.0-50.0 Above high normal [facility] ([facility]) Venous Hco3 25.7 meq/L 23.0-27.0 Normal (applies to non-numeric resu lts) [facility] ([facility]) Venous Standard Hco3 23.5 meq/L Normal (applies to non-num denita results) [facility] ([facility]) Venous O2 Saturation 88.1 % 60.0-80.0 Above high normal [facility] ([facility]) Venous Base Excess -1.0 Normal (applies to non-numer ic results) [facility]) ID Date Data Source [id number] 12/29/2019 11:00:00 AM EDT [facility] Name Value Range Interpretation Code Description Data Tisha rce(s) Supporting Document(s) SARS coronavirus 2 RNA [facility] This lab was ordered by [facility] and reported by [facility]. ID Date Data Source [id number] 12/28/2019 09:54:00 AM EDT [facility] ([facility]) Name Value Range Interpretation Code Description Data Tisha rce(s) Supporting Document(s) Laboratory test finding (navigational concept) 41.0 % 3 8.0-51.0 Normal (applies to non-numeric results) [facility] ([facility]) Laboratory test finding (navigational concept) 135 meq/L 1 36-145 Below low normal [facility] ([facility]) Laboratory test finding (navigational concept) 4.3 meq/L 3 .5-5.1 Normal (applies to non-numeric results) [facility] ([facility]) Laboratory test finding (navigational concept) 206 mg/dL 7 0-105 Above high normal [facility] ([facility]) Laboratory test finding (navigational concept) 25.0 MM/L 2 3.0-27.0 Normal (applies to non-numeric results) [facility] ([facility]) Laboratory test finding (navigational concept) 4.8 mg/dL 4 .5-5.3 Normal (applies to non-numeric results) [facility] ([facility]) Laboratory test finding (navigational concept) 38 mg/dL 8-26 Above high normal [facility] ([facility]) Laboratory test finding (navigational concept) 100 meq/L 9 8-109 Normal (applies to non-numeric results) [facility] ([facility]) Laboratory test finding (navigational concept) 1.4 mg/dL 0 .6-1.3 Above high normal [facility] ([facility]) ID Date Data Source [id number] 12/27/2019 01:50:00 PM EDT [facility] ([facility] [...] Little GFR Left</content>
<content>ESRD GFR <15 on DELIVERY RECRUITER</content>
<content></content> Creatinine For GFR 1.87 mg/dL 0.55-1.30 [...] ([facility] ID Date Data Source [id number] 12/27/2019 01:50:00 PM EDT [facility] ([facility] [...] [facility] ID Date Data Source [id number] 12/27/2019 01:50:00 PM EDT [facility] ([facility]) Name Value Range Interpretation Code Description Data Tisha rce(s) Supporting Document(s) White Blood Count 13.7 10 4.0-10.0 Above high normal [facility] ([facility]) Hematocrit 43.5 % 36.0-47.0 Normal (applies to non-numeric resul ts) [facility] ([facility]) Hemoglobin 13.9 g/dL 12.0-15.5 Normal (applies to non-numeric resul ts) [facility] ([facility]) Mean Corpuscular Volume 84.1 fl 80.0-96.0 Normal ( applies to non-numeric results) [facility] ([facility]) Red Blood Count 5.17 10 4.00-5.40 Normal (applies to non-numeric results) [facility] ([facility]) Mean Corpuscular HGB Conc 32.0 g/dL 32.0-36.5 Normal (applies to non-numeric results) [facility] ([facility]) Red Cell Distribution Width 13.9 % 11.5-14.5 Norm al (applies to non-numeric results) [facility] ([facility]) Mean Corpuscular Hemoglobin 26.9 pg 27.0-33.0 Below low normal [facility] ([facility]) Platelet Count, Automated 337 10 150-450 Normal (applies to non-numeric results) [facility] ([facility]) Nucleated Red Blood Cell % 0.0 % 0-0 Normal (applies to n on-numeric results) [facility] ([facility]) ID Date Data Source [id number] 12/27/2019 01:50:00 PM EDT [facility] ([facility]) Name Value Range Interpretation Code Description Data Tisha rce(s) Supporting Document(s) Blood Urea Nitrogen 36 mg/dL 7-18 Above high normal [facility] ([facility]) Creatinine For GFR 1.87 mg/dL 0.55-1.30 Above high normal [facility] ([facility]) Glucose, Fasting 71 mg/dL 70-100 Normal (applies to non-numeric results) [facility]) Glomerular Filtration Rate 30.1 Below low normal [facility] ([facility]) <content>Units are mL/min/1.73 m2</content>
<content></content>
<content>Chronic Kidney Disease Staging per NKF:</content>
<content></content>
<content>Stage I & II GFR >=60 Normal to Mildly Decreased</content>
<content>Stage III GFR 30- 59 Moderately Decreased</content>
<content>Stage IV GFR 15-29 Severely Decreased</content>
<content>Stage V GFR <15 Very Little GFR Left</content>
<content>ESRD GFR <15 on DELIVERY RECRUITER</content>
<content></content> Sodium Level 133 meq/L 136-145 Below low normal [facility] ([facility]) Potassium Serum 4.3 meq/L 3.5-5.1 Normal (applies to non-numeric results) [facility]) Anion Gap 8 meq/L 8-16 Normal (applies to non-numeric resul ts) [facility] ([facility]) Chloride Level 100 meq/L 98-107 Normal (applies to non-numeric r esults) [facility] ([facility]) Carbon Dioxide Level 25 meq/L 21-32 Normal (applies to non-num denita results) [facility] ([facility]) Calcium Level 8.7 mg/dL 8.5-10.1 Normal (applies to non-numeric re sults) [facility] ([facility]) ID Date Data Source [id number] 12/27/2019 01:40:00 PM EDT [facility] ([facility]) Name Value Range Interpretation Code Description Data Tisha rce(s) Supporting Document(s) Natriuretic peptide.B prohormone N-Terminal [Mass/volu me] in Serum or Plasma 211 pg/mL Above high normal [facility] ([facility]) <content>note:<nlbl:demographic_changed> </content>
<content></content> ID Date Data Source [id number] 12/27/2019 01:40:00 PM EDT [facility] ([facility]) Name Value Range Interpretation Code Description Data Tisha rce(s) Supporting Document(s) Malb Urine Siemens 22.2 mg/L Normal (applies to non-numer ic results) [facility] ([facility]) Creatinine, Urine 195.0 mg/dL Normal (applies to non-numer ic results) [facility] ([facility]) Kevyn/Creat Ratio 11.3 MCG/MG 0.0-30.0 Normal (applies to non-numeric results) [facility] ([facility]) THE [employer] STATES THAT MICROALBUMINURIA IS PRESENT IF THE MICROALBUMIN/CREATININE RATIO EXCEEDS 30 MCG/MG. THE THRESHOLD FOR CLINICAL ALBUMINURIA IS REACHED AT 300 MCG/MG. THE CLASSIFICATION OF A PATIENT SHOULD BE BASED UPON AT LEAST 2 OF 3 ABNORMAL RESULTS ON SPECIMENS COLLECTED WITHIN A 3 TO 6 MONTH TIME FRAME. ID Date Data Source [id number] 12/27/2019 01:40:00 PM EDT [facility] ([facility]) Name Value Range Interpretation Code Description Data Tisha rce(s) Supporting Document(s) Hemoglobin A1c 9.1 % Normal (applies to non-numeric r esults) [facility] ([facility]) <content>REFERENCE RANGES:</content><br/ ><content></content>
<content><=5.6% NORMAL</content>
<content>5.7-6.4% SUGGESTS IMPAIRED GLUCOSE METABOLISM/PREDIABETIC</content>
<content>>= 6.5% ABNORMAL</content>
<content></content> Estimated Average Glucose 214 mg/dL 60-110 Above high normal [facility] [facility]) ID Date Data Source [id number] 12/27/2019 01:40:00 PM EDT [facility] ([facility]) Name Value Range Interpretation Code Description Data Tisha rce(s) Supporting Document(s) Red Blood Count 5.19 10 4.00-5.40 Normal (applies to non-numeric results) [facility] ([facility]) White Blood Count 13.9 10 4.0-10.0 Above high normal [facility] ([facility]) Hemoglobin 14.0 g/dL 12.0-15.5 Normal (applies to non-numeric resul ts) [facility] ([facility]) Hematocrit 43.7 % 36.0-47.0 Normal (applies to non-numeric resul ts) [facility] ([facility]) Mean Corpuscular Volume 84.2 fl 80.0-96.0 Normal ( applies to non-numeric results) [facility] ([facility]) Mean Corpuscular Hemoglobin 27.0 pg 27.0-33.0 Norm al (applies to non-numeric results) [facility] ([facility]) Red Cell Distribution Width 13.8 % 11.5-14.5 Norm al (applies to non-numeric results) [facility] ([facility]) Mean Corpuscular HGB Conc 32.0 g/dL 32.0-36.5 Normal (applies to non-numeric results) [facility] ([facility]) Platelet Count, Automated 310 10 150-450 Normal (applies to non-numeric results) [facility] ([facility]) Neutrophils % 67.6 % 36.0-66.0 Above high normal [facility] ([facility]) Lymph % 24.0 % 24.0-44.0 Normal (applies to non-numeric resul ts) [facility] ([facility]) Eos % 1.9 % 0.0-3.0 Normal (applies to non-numeric resul ts) [facility] ([facility]) Baso % 0.6 % 0.0-1.0 Normal (applies to non-numeric resul ts) [facility] ([facility]) [place] % 5.1 % 0.0-5.0 Above high normal [facility] ([facility]) Immature Granulocyte % 0.8 % 0-3.0 Normal (applies to non-n umeric results) [facility] ([facility]) Nucleated Red Blood Cell % 0.0 % 0-0 Normal (applies to n on-numeric results) [facility] ([facility]) Neutrophils # 9.4 10 1.5-8.5 Above high normal [facility] ([facility]) [place] # 0.7 10 0.0-0.8 Normal (applies to non-numeric resul ts) [facility] ([facility]) Eos # 0.3 10 0.0-0.5 Normal (applies to non-numeric resul ts) [facility] ([facility]) Lymph # 3.3 10 1.5-5.0 Normal (applies to non-numeric resul ts) [facility] ([facility]) Baso # 0.1 10 0.0-0.2 Normal (applies to non-numeric resul ts) [facility] ([facility]) ID Date Data Source [id number] 12/27/2019 01:40:00 PM EDT [facility] ([facility]) Name Value Range Interpretation Code Description Data Tisha rce(s) Supporting Document(s) Blood Urea Nitrogen 37 mg/dL 7-18 Above high normal [facility] ([facility]) Glucose, Fasting 73 mg/dL 70-100 Normal (applies to non-numeric results) [facility] ([facility]) Creatinine For GFR 1.92 mg/dL 0.55-1.30 Above high normal [facility] ([facility]) Sodium Level 132 meq/L 136-145 Below low normal [facility] ([facility]) Potassium Serum 4.3 meq/L 3.5-5.1 Normal (applies to non-numeric results) [facility] ([facility]) Glomerular Filtration Rate 29.2 Below low normal [facility] <content>Units are mL/min/1.73 m2</content>
<content></content>
<content>Chronic Kidney Disease Staging per NKF:</content>
<content></content>
<content>Stage I & II GFR >=60 Normal to Mildly Decreased</content>
<content>Stage III GFR 30- 59 Moderately Decreased</content>
<content>Stage IV GFR 15-29 Severely Decreased</content>
<content>Stage V GFR <15 Very Little GFR Left</content>
<content>ESRD GFR <15 on DELIVERY RECRUITER</content>
<content></content> Carbon Dioxide Level 24 meq/L 21-32 Normal (applies to non-num denita results) [facility] ([facility]) Anion Gap 6 meq/L 8-16 Below low normal [facility] ( [facility]) Chloride Level 102 meq/L 98-107 Normal (applies to non-numeric r esults) [facility] ([facility]) Ast/Sgot 16 U/L 7-37 Normal (applies to non-numeric resul ts) [facility] ([facility]) Calcium Level 8.7 mg/dL 8.5-10.1 Normal (applies to non-numeric re sults) [facility] ([facility]) Alt/SGPT 19 U/L 12-78 Normal (applies to non-numeric resul ts) [facility] ([facility]) Alkaline Phosphatase 163 U/L 45-117 Above high normal [facility] ([facility]) Bilirubin,Total 0.2 mg/dL 0.2-1.0 Normal (applies to non-numeric results) [facility] ([facility]) Total Protein 7.0 GM/DL 6.4-8.2 Normal (applies to non-numeric re sults) [facility] ([facility]) Albumin 2.9 GM/DL 3.2-5.2 Below low normal [facility] ( [facility]) Albumin/Globulin Ratio 0.7 1.2-2.2 Below low normal [facility] ([facility]) ID Date Data Source [id number] 12/27/2019 01:40:00 PM EDT [facility] ([facility]) Name Value Range Interpretation Code Description Data Tisha rce(s) Supporting Document(s) Cholesterol Level 159 mg/dL Normal (applies to non-numeri c results) [facility] ([facility]) Triglycerides Level 294 mg/dL Above high normal [facility] ([facility]) HDL Cholesterol 39 mg/dL Below low normal [facility] ([facility]) Non-HDL-C 120 mg/dL Normal (applies to non-numeric resul ts) [facility] ([facility]) LDL Cholesterol 61 mg/dL Normal (applies to non-numeric results) [facility] Cholesterol Risk Ratio 4.076 Normal (applies to non-n umeric results) [facility] ([facility]) ID Date Data Source [id number] 12/08/2019 06:58:55 AM EDT [facility] NT INFORMATIONPatient MRN Name Date of Age Gend*PT [id number] Tatianna Soto 1965 54 years F EDPT Location Admission Date/Time Visit ID Attending Provider --- --- --- --- EPI ID CSN Admitting Provider [id number] ---Attestation signed by Yohan Sal MD at 12/08/2019 6:58 AMMid Level Attestation: SUPERVISED APC: Based on the medical record the careappears appropriate ED Provider in Triage Megan [id number] HPI: Patient is a 54 y/o female who presents to the ED with central CP x 2weeks. History of CA s/p CABG in 2016. Takes Plavix. Smokes 1 PPDPhysical exam:Patient seated in whee lchairPositive Cervantes's signTachycardic in triagePreliminary Plan:Labs, EKG, troponin, CTAVitals: 12/07/19 1916BP: 96/64Pulse: 114Resp: 18Temp: 99 FSpO2: 96%ED GLENIS Coyne12/07/19 1923Kanalisa Jonelle, 12/08/19 0658 Name Value Range Interpretation Code Description Data Tisha rce(s) Supporting Document(s) ID Date Data Source [id number] 12/08/2019 06:48:22 AM EDT [facility] Name Value Range Interpretation Code Description Data Tisha rce(s) Supporting Document(s) EKG [facility] [id number] [file] [id number]= ID Date Data Source [id number] 12/07/2019 08:42:59 PM EDT [address] [address] Name: TATIANNA SOTOB: 1965Sex: FOrdering Provider: ROSAS Pena Prov: ROSAS Dodd Provider: Procedure Performed: CT ANGIOGRAM CHESTExam Date: 12/07/2019 20:34MRN: [id number] Number: [id number] Class: EmergencyAccount #: [id number] for Exam: CP x 2 weeks, tachy, [...] DELIA VILLELA On 12/07/2019 8:42 PMWorkstation ID: [id number] Name Value Range Interpretation Code Description Data Tisha rce(s) Supporting Document(s) ID Date Data Source [id number] 12/07/2019 08:03:27 PM EDT [facility] Name Value Range Interpretation Code Description Data Tisha rce(s) Supporting Document(s) POC CTNI <0.01 ng/mL (0.01-0.07) L [facility] Less than 0.08: Myocardial injury unlike lyGreater than or equal to 0.08: Highlysuggestive of myocardial injuryCorrelation with rise and/or fall ofserial troponins, clinical symptoms,and ECG changes is necessary.PERFORMED BY [facility]ICAL STAFF ID Date Data Source [id number] 12/07/2019 08:26:31 PM EDT [facility] Name Value Range Interpretation Code Description Data Tisha rce(s) Supporting Document(s) NT PRO BNP 189 pg/mL (0-125) H [facility] ID Date Data Source [id number] 12/07/2019 08:19:55 PM EDT [facility] Name Value Range Interpretation Code Description Data Tisha rce(s) Supporting Document(s) MAGNESIUM 2.4 mg/dL (1.7-2.4) [facility] ID Date Data Source [id number] 12/07/2019 08:19:55 PM EDT [facility] Name Value Range Interpretation Code Description Data Tisha rce(s) Supporting Document(s) SODIUM 134 mmol/L (136-145) L [facility] POTASSIUM 4.2 mmol/L (3.6-5.2) [facility] CHLORIDE 100 mmol/L (100-108) [facility] CO2 25 mmol/L (22-31) [facility] ANION GAP 9 mmol/L (7-16) [facility] UREA NITROGEN 24 mg/dL (7-24) [facility] CREATININE 1.17 mg/dL (0.60-1.00) H [facility] BUN/CREAT RATIO 20.5 RATIO (10.0-20.0) H [facility] GLUCOSE 339 mg/dL (70-99) H [facility] CALCIUM 9.9 mg/dL (8.4-10.2) [facility] GFR 49 ml/min/1.73m2 (>59) L [facility] GFR ( AMER) 59 ml/min/1.73m2 (>59) L [facility] GFR INTERPRETATION [facility] --NORMAL KIDNEY FUNCTION OR MILD DISEASE - GFR >OR= 60CHRONIC KIDNEY DISEASE - GFR 15 - 59RENAL FAILURE - GFR <15 Est. GFR calculation based on the MDRDstudy equation, which assumes a steadystate for creatinine. Est. GFR should notbe used for medication dosing. ID Date Data Source [id number] 12/07/2019 08:16:10 PM EDT [facility] Name Value Range Interpretation Code Description Data Tisha rce(s) Supporting Document(s) APTT 24.9 s (22.0-34.3) [facility] ID Date Data Source [id number] 12/07/2019 08:16:10 PM EDT [facility] Name Value Range Interpretation Code Description Data Tisha rce(s) Supporting Document(s) PT 10.1 s (9.2-11.9) [facility] INR 0.96 [facility] SUGGESTED THERAPEUTIC RANGES USING INR F ORSTABILIZED ANTICOAGULATED PATIENTS:STANDARD DOSE THERAPY INR 2.0-3.0 DVT, PE, PREVENT DVT OR EMBOLISMHIGH DOSE THERAPY INR 2.5-3.5 PREVENT EMBOLISM FROM MECHANICAL HEART VALVE ID Date Data Source [id number] 12/07/2019 08:06:44 PM EDT [facility] Name Value Range Interpretation Code Description Data Tisha rce(s) Supporting Document(s) WBC 12.3 10*3/uL (4.1-11.0) H [facility] RBC 5.85 10*6/uL (4.00-5.40) H [facility] HGB 15.7 g/dL (12.0-16.0) [facility] HCT 48.4 % (36.0-47.0) H [facility] MCV 82.8 fL (80.0-95.0) [facility] MCH 26.8 pg (27.0-32.0) L [facility] MCHC 32.4 g/dL (32.0-36.0) [facility] RDW 15.1 % (10.5-14.5) H [facility] PLT 348 10*3/uL (150-450) [facility] MPV 8.1 fL (7.1-10.7) [facility] NEUT % 70.6 % (35.0-75.0) [facility] LYMPH % 19.5 % (16.0-52.0) [facility] MONO % 6.4 % (0.0-8.0) [facility] EOS % 3.2 % (0.0-5.0) [facility] BASO % 0.3 % (0.0-4.0) [facility] NEUT # 8.7 10*3/uL (1.8-7.7) H [facility] LYMPH # 2.4 10*3/uL (1.2-4.8) [facility] MONO # 0.8 10*3/uL (0.0-0.8) [facility] Eosinophils [#/volume] in Blood by Automated count 0.4 10*3/uL (0.0-0 .5) [facility] BASO # 0.0 10*3/uL (0.0-0.2) [facility] ID Date Data Source [id number] 11/08/2019 01:12:00 PM EDT [facility] ([facility]) Name Value Range Interpretation Code Description Data Tisha rce(s) Supporting Document(s) Laboratory test finding (navigational concept) 44.0 % 3 8.0-51.0 Normal (applies to non-numeric results) [facility] ([facility]) Laboratory test finding (navigational concept) 178 mg/dL 7 0-105 Above high normal [facility] ([facility]) Laboratory test finding (navigational concept) 140 meq/L 1 36-145 Normal (applies to non-numeric results) [facility] Laboratory test finding (navigational concept) 4.7 mg/dL 4 .5-5.3 Normal (applies to non-numeric results) [facility] Laboratory test finding (navigational concept) 3.8 meq/L 3 .5-5.1 Normal (applies to non-numeric results) [facility] Laboratory test finding (navigational concept) 102 meq/L 9 8-109 Normal (applies to non-numeric results) [facility] ([facility]) Laboratory test finding (navigational concept) 17 mg/dL 8 -26 Normal (applies to non-numeric results) [facility] ([facility]) Laboratory test finding (navigational concept) 30.0 MM/L 2 3.0-27.0 Above high normal [facility] ([facility]) Laboratory test finding (navigational concept) 0.7 mg/dL 0 .6-1.3 Normal (applies to non-numeric results) [facility] ([facility]) ID Date Data Source [id number] 11/08/2019 01:11:00 PM EDT [facility] ([facility]) Name Value Range Interpretation Code Description Data Tisha rce(s) Supporting Document(s) Venous PH 7.352 units 7.330-7.430 Normal (applies to non-numeric res ults) [facility] Venous Partial Pressure Co2 56.7 mmHg 38.0-50.0 Above high normal [facility] ([facility]) Venous Partial Pressure O2 36.1 mmHg 30.0-50.0 Nellie l (applies to non-numeric results) [facility] Venous Total Co2 32.5 meq/L 24.0-28.0 Above high normal [facility] Venous Standard Hco3 27.0 meq/L Normal (applies to non-num denita results) [facility] Venous Hco3 30.7 meq/L 23.0-27.0 Above high normal [facility] ([facility]) Venous Base Excess 3.6 Above high normal [facility] ([facility]) Venous O2 Saturation 69.2 % 60.0-80.0 Normal (applies to non-num denita results) [facility] ([facility]) ID Date Data Source [id number] 11/08/2019 01:11:00 PM EDT [facility] ([facility]) Name Value Range Interpretation Code Description Data Tisha rce(s) Supporting Document(s) White Blood Count 10.9 10 4.0-10.0 Above high normal [facility] ([facility]) Red Blood Count 5.11 10 4.00-5.40 Normal (applies to non-numeric results) [facility] ([facility]) Hemoglobin 14.0 g/dL 12.0-15.5 Normal (applies to non-numeric resul ts) [facility] ([facility]) Mean Corpuscular HGB Conc 31.9 g/dL 32.0-36.5 Below low [facility] Hematocrit 43.9 % 36.0-47.0 Normal (applies to non-numeric resul ts) [facility] ([facility]) Mean Corpuscular Hemoglobin 27.4 pg 27.0-33.0 Norm al (applies to non-numeric results) [facility] ([facility]) Mean Corpuscular Volume 85.9 fl 80.0-96.0 Normal ( applies to non-numeric results) [facility] Red Cell Distribution Width 13.4 % 11.5-14.5 Norm al (applies to non-numeric results) [facility] ([facility]) Platelet Count, Automated 281 10 150-450 Normal (applies to non-numeric results) [facility] ([facility]) Neutrophils % 71.9 % 36.0-66.0 Above high normal [facility] ([facility]) Eos % 3.4 % 0.0-3.0 Above high normal [facility] ([facility]) Lymph % 17.4 % 24.0-44.0 Below low normal [facility] ( [facility]) [place] % 6.3 % 0.0-5.0 Above high normal [facility] ([facility]) Baso % 0.6 % 0.0-1.0 Normal (applies to non-numeric resul ts) [facility] ([facility]) Immature Granulocyte % 0.4 % 0-3.0 Normal (applies to non-n umeric results) [facility] ([facility]) Nucleated Red Blood Cell % 0.0 % 0-0 Normal (applies to n on-numeric results) [facility] ([facility]) Neutrophils # 7.8 10 1.5-8.5 Normal (applies to non-numeric re sults) [facility] ([facility]) [place] # 0.7 10 0.0-0.8 Normal (applies to non-numeric resul ts) [facility] ([facility]) Lymph # 1.9 10 1.5-5.0 Normal (applies to non-numeric resul ts) [facility] ([facility]) Eos # 0.4 10 0.0-0.5 Normal (applies to non-numeric resul ts) [facility] ([facility]) Baso # 0.1 10 0.0-0.2 Normal (applies to non-numeric resul ts) [facility] ([facility]) ID Date Data Source [id number] 11/08/2019 01:11:00 PM EDT [facility] ([facility]) Name Value Range Interpretation Code Description Data Tisha rce(s) Supporting Document(s) Inr 1.02 Normal (applies to non-numeric resul ts) [facility] ([facility]) THERAPUTIC HUMAN INR VALUES INDICATIONS NORMAL RANGES PROPHYLAXIS/TREATMENT OF: VENOUS THROMBOSIS 2.0-3.0 PULMONARY EMBOLISM 2.0-3.0 PREVENTION OF SYSTEMIC EMBOLISM FROM: TISSUE HEART VALVES 2.0-3.0 ACUTE MYOCARDIAL INFARCTION 2.0-3.0 VALVULAR HEART DISEASE 2.0-3.0 ATRIAL FIBRILLATION 2.0-3.0 MECHANICAL VALVES(HIGH RISK) 2.5-3.5 RECURRENT MYOCARDIAL INFARCTION 2.5-3.5 Prothrombin Time 13.1 s 11.8-14.0 Normal (applies to non-numeric results) [facility] ([facility]) ID Date Data Source [id number] 11/08/2019 01:11:00 PM EDT [facility] ([facility]) Name Value Range Interpretation Code Description Data Tisha rce(s) Supporting Document(s) Lactate [Mass/volume] in Serum or Plasma 1.2 mmol/L 0.4-2.0 Normal (applies to non-numeric results) [facility]) <content>note:<nlbl:demographic_changed> </content>
<content>Y/N query for Sepsis Lactate Rule: Y</content>
<content></content> ID Date Data Source [id number] 11/08/2019 01:11:00 PM EDT [facility] ([facility]) Name Value Range Interpretation Code Description Data Tisha rce(s) Supporting Document(s) CPK Creatine Phosphokinase 26 U/L 26-192 Nellie l (applies to non-numeric results) [facility] ([facility]) MB/CK Relative Index 3.85 Normal (applies to non-num denita results) [facility] ([facility]) <content>DIAGNOSIS CRITERIA</content>
<content>MMB ng/ml Relative Index (RI)</content>
<content>NON-AMI < or = 5 N/A</content>
<content>DICKERSON ZONE > 5 < or = 4</content>
<content>AMI > 5 > 4</content>
<content></content> CK-MB Value Mass 1.0 ng/mL Normal (applies to non-numeric results) [facility] ([facility]) Troponin I Laboratory test result Normal (applies to non-n umeric results) [facility] ([facility]) <content>Troponin I Reference Interval f or Siemens [place] LOCI:</content>
<content></content>
<content>99th Percentile= 0.00-0.045 ng/ml</content>
<content></content>
<content>Risk Stratification:</content>
<content><= 0.10 ng/ml Decreased Risk for Adverse Clinical</content>
<content>Events.</content>
<content>0.10-1.50 ng/ml Increased Risk for Adverse Clinical</content>
<content>Events. Evaluation of additional</content>
<content>criterion and/or repeat testing in 2-6</content>
<content>hours is suggested to rule out myocardial</content>
<content>damage.</content>
<content>>= 1.50 ng/ml Indicative of Myocardial Injury.</content>
<content></content> ID Date Data Source [id number] 11/08/2019 01:11:00 PM EDT [facility] ([facility]) Name Value Range Interpretation Code Description Data Tisha rce(s) Supporting Document(s) Blood Urea Nitrogen 15 mg/dL 7-18 Normal (applies to non-nume yogesh results) [facility] ([facility]) Glucose, Fasting 169 mg/dL 70-100 Above high normal M [facility]) Creatinine For GFR 0.81 mg/dL 0.55-1.30 Normal (applies to non -numeric results) [facility] ([facility]) Glomerular Filtration Rate Laboratory test result Normal (applies to non- numeric results) [facility]) <content>Units are mL/min/1.73 m2</content>
<content></content>
<content>Chronic Kidney Disease Staging per NKF:</content>
<content></content>
<content>Stage I & II GFR >=60 Normal to Mildly Decreased</content>
<content>Stage III GFR 30- 59 Moderately Decreased</content>
<content>Stage IV GFR 15-29 Severely Decreased</content>
<content>Stage V GFR <15 Very Little GFR Left</content>
<content>ESRD GFR <15 on DELIVERY RECRUITER</content>
<content></content> Potassium Serum 3.9 meq/L 3.5-5.1 Normal (applies to non-numeric results) [facility] ([facility]) Sodium Level 142 meq/L 136-145 Normal (applies to non-numeric res ults) [facility] ([facility]) Chloride Level 105 meq/L 98-107 Normal (applies to non-numeric r esults) [facility] ([facility]) Anion Gap 6 meq/L 8-16 Below low normal [facility] ( [facility]) Carbon Dioxide Level 31 meq/L 21-32 Normal (applies to non-num denita results) [facility] ([facility]) Calcium Level 9.3 mg/dL 8.5-10.1 Normal (applies to non-numeric re sults) [facility] ([facility]) ID Date Data Source [id number] 11/08/2019 01:11:00 PM EDT [facility] ([facility]) Name Value Range Interpretation Code Description Data Tisha rce(s) Supporting Document(s) Thyrotropin [Units/volume] in Serum or Plasma 2.260 uIU/ML 0. 358-3.740 Normal (applies to non-numeric results) [facility]) <content>note:<nlbl:demographic_changed> </content>
<content></content> ID Date Data Source [id number] 11/07/2019 09:30:00 AM EDT [facility] ([facility]) Name Value Range Interpretation Code Description Data Tisha rce(s) Supporting Document(s) Glucose [Mass/volume] in Capillary blood by Glucometer 176 mg/dL 70-105 Above high normal [facility] ([facility]) ID Date Data Source [id number] 11/07/2019 09:30:00 AM EDT [facility] ([facility] ) Name Value Range Interpretation Code Description Data Tisha rce(s) Supporting Document(s) Glucose [Mass/volume] in Capillary blood by Glucometer 176 mg/dL 70-105 Above high normal [facility] ([facility], ) ID Date Data Source [id number] 11/07/2019 06:55:00 AM EDT [facility] ([facility]) Name Value Range Interpretation Code Description Data Tisha rce(s) Supporting Document(s) Glucose [Mass/volume] in Capillary blood by Glucometer 292 mg/dL 70-105 Above high normal [facility] ([facility]) ID Date Data Source [id number] 11/07/2019 06:55:00 AM EDT [facility] ([facility], ) Name Value Range Interpretation Code Description Data Tisha rce(s) Supporting Document(s) Glucose [Mass/volume] in Capillary blood by Glucometer 292 mg/dL 70-105 Above high normal [facility] ([facility], ) ID Date Data Source [id number] 11/05/2019 06:03:00 AM EDT [facility] ([facility]) Name Value Range Interpretation Code Description Data Tisha rce(s) Supporting Document(s) Glucose [Mass/volume] in Capillary blood by Glucometer 80 mg/dL 70-105 Normal (applies to non-numeric results) [facility] ([facility]) ID Date Data Source [id number] 11/05/2019 05:06:00 AM EDT [facility] ([facility]) Name Value Range Interpretation Code Description Data Tisha rce(s) Supporting Document(s) Glucose [Mass/volume] in Capillary blood by Glucometer 123 mg/dL 70-105 Above high normal [facility] ([facility]) ID Date Data Source [id number] 11/05/2019 02:48:00 AM EDT [facility] ([facility]) Name Value Range Interpretation Code Description Data Tisha rce(s) Supporting Document(s) White Blood Count 10.9 10 4.0-10.0 Above high normal [facility] Red Blood Count 4.75 10 4.00-5.40 Normal (applies to non-numeric results) [facility] ([facility]) Hematocrit 41.9 % 36.0-47.0 Normal (applies to non-numeric resul ts) [facility] Mean Corpuscular Hemoglobin 27.2 pg 27.0-33.0 Norm al (applies to non-numeric results) [facility] ([facility]) Mean Corpuscular Volume 88.2 fl 80.0-96.0 Normal ( applies to non-numeric results) [facility] ([facility]) Hemoglobin 12.9 g/dL 12.0-15.5 Normal (applies to non-numeric resul ts) [facility] ([facility]) Platelet Count, Automated 287 10 150-450 Normal (applies to non-numeric results) [facility] ([facility]) Mean Corpuscular HGB Conc 30.8 g/dL 32.0-36.5 Below low normal [facility] ([facility]) Red Cell Distribution Width 13.7 % 11.5-14.5 Norm al (applies to non-numeric results) [facility] ([facility]) Eos % 2.4 % 0.0-3.0 Normal (applies to non-numeric resul ts) [facility] ([facility]) Neutrophils % 71.8 % 36.0-66.0 Above high normal [facility] ([facility]) [place] % 6.4 % 0.0-5.0 Above high normal [facility] ([facility]) Lymph % 18.3 % 24.0-44.0 Below low normal [facility] ( [facility]) Immature Granulocyte % 0.5 % 0-3.0 Normal (applies to non-n umeric results) [facility] ([facility]) Baso % 0.6 % 0.0-1.0 Normal (applies to non-numeric resul ts) [facility] ([facility]) Nucleated Red Blood Cell % 0.0 % 0-0 Normal (applies to n on-numeric results) [facility] ([facility]) Neutrophils # 7.8 10 1.5-8.5 Normal (applies to non-numeric re sults) [facility] ([facility]) Lymph # 2.0 10 1.5-5.0 Normal (applies to non-numeric resul ts) [facility] ([facility]) [place] # 0.7 10 0.0-0.8 Normal (applies to non-numeric resul ts) [facility] ([facility]) Eos # 0.3 10 0.0-0.5 Normal (applies to non-numeric resul ts) [facility] ([facility]) Baso # 0.1 10 0.0-0.2 Normal (applies to non-numeric resul ts) [facility] ID Date Data Source [id number] 11/05/2019 02:48:00 AM EDT [facility] Name Value Range Interpretation Code Description Data Tisha rce(s) Supporting Document(s) Inr 1.00 Normal (applies to non-numeric resul ts) [facility] THERAPUTIC HUMAN INR VALUES INDICATIONS NORMAL RANGES PROPHYLAXIS/TREATMENT OF: VENOUS THROMBOSIS 2.0-3.0 PULMONARY EMBOLISM 2.0-3.0 PREVENTION OF SYSTEMIC EMBOLISM FROM: TISSUE HEART VALVES 2.0-3.0 ACUTE MYOCARDIAL INFARCTION 2.0-3.0 VALVULAR HEART DISEASE 2.0-3.0 ATRIAL FIBRILLATION 2.0-3.0 MECHANICAL VALVES(HIGH RISK) 2.5-3.5 RECURRENT MYOCARDIAL INFARCTION 2.5-3.5 Prothrombin Time 12.9 s 11.8-14.0 Normal (applies to non-numeric results) [facility] ([facility]) Partial Thromboplastin Time 23.9 s 25.0-38.4 Below low normal [facility] ([facility]) ID Date Data Source [id number] 11/05/2019 02:48:00 AM EDT [facility] Name Value Range Interpretation Code Description Data Tisha rce(s) Supporting Document(s) CPK Creatine Phosphokinase 45 U/L 26-192 Nellie l (applies to non-numeric results) [facility] ([facility]) MB/CK Relative Index 3.33 Normal (applies to non-num denita results) [facility] ([facility]) <content>DIAGNOSIS CRITERIA</content>
<content>MMB ng/ml Relative Index (RI)</content>
<content>NON-AMI < or = 5 N/A</content>
<content>DICKERSON ZONE > 5 < or = 4</content>
<content>AMI > 5 > 4</content>
<content></content> CK-MB Value Mass 1.5 ng/mL Normal (applies to non-numeric results) [facility] ([facility]) Troponin I Laboratory test result Normal (applies to non-n umeric results) [facility] ([facility]) <content>Troponin I Reference Interval f or Siemens [place] LOCI:</content>
<content></content>
<content>99th Percentile= 0.00-0.045 ng/ml</content>
<content></content>
<content>Risk Stratification:</content>
<content><= 0.10 ng/ml Decreased Risk for Adverse Clinical</content>
<content>Events.</content>
<content>0.10-1.50 ng/ml Increased Risk for Adverse Clinical</content>
<content>Events. Evaluation of additional</content>
<content>criterion and/or repeat testing in 2-6</content>
<content>hours is suggested to rule out myocardial</content>
<content>damage.</content>
<content>>= 1.50 ng/ml Indicative of Myocardial Injury.</content>
<content></content> ID Date Data Source [id number] 11/05/2019 02:48:00 AM EDT [facility] ([facility]) Name Value Range Interpretation Code Description Data Tisha rce(s) Supporting Document(s) Glomerular Filtration Rate 55.5 Normal (applies to n on-numeric results) [facility] ([facility]) <content>Units are mL/min/1.73 m2</content>
<content></content>
<content>Chronic Kidney Disease Staging per NKF:</content>
<content></content>
<content>Stage I & II GFR >=60 Normal to Mildly Decreased</content>
<content>Stage III GFR 30- 59 Moderately Decreased</content>
<content>Stage IV GFR 15-29 Severely Decreased</content>
<content>Stage V GFR <15 Very Little GFR Left</content>
<content>ESRD GFR <15 on DELIVERY RECRUITER</content>
<content></content> Glucose, Fasting 549 mg/dL 70-100 Above upper panic limits [facility] ([facility]) Creatinine For GFR 1.10 mg/dL 0.55-1.30 Normal (applies to non -numeric results) [facility] ([facility]) Blood Urea Nitrogen 20 mg/dL 7-18 Above high normal [facility] ([facility]) Sodium Level 140 meq/L 136-145 Normal (applies to non-numeric res ults) [facility] ([facility]) Chloride Level 104 meq/L 98-107 Normal (applies to non-numeric r esults) [facility] ([facility]) Potassium Serum 4.8 meq/L 3.5-5.1 Normal (applies to non-numeric results) [facility] Testing was performed on a SLIGHTLY hemo lyzed specimen. Suggest recollection of specimen for more accurate test results. Carbon Dioxide Level 28 meq/L 21-32 Normal (applies to non-num denita results) [facility] ([facility]) Anion Gap 8 meq/L 8-16 Normal (applies to non-numeric resul ts) [facility] ([facility]) Calcium Level 8.4 mg/dL 8.5-10.1 Below low normal [facility] ([facility]) ID Date Data Source [id number] 11/05/2019 02:48:00 AM EDT [facility] ([facility]) Name Value Range Interpretation Code Description Data Tisha rce(s) Supporting Document(s) Lipase [Enzymatic activity/volume] in Serum or Plasma 174 U/L 73-393 Normal (applies to non-numeric results) [facility] ([facility]) <content>note:<nlbl:[email or web address]> </content>
<content></content> ID Date Data Source [id number] 10/11/2019 03:34:00 PM EDT [facility] ([facility] Name Value Range Interpretation Code Description Data Tisha rce(s) Supporting Document(s) Glucose [Mass/volume] in Capillary blood by Glucometer 154 mg/dL 70-105 Above high normal [facility] ([facility] order not to draw Doctor Notified ID Date Data Source [id number] 10/11/2019 03:34:00 PM EDT [facility] ([facility]) Name Value Range Interpretation Code Description Data Tisha rce(s) Supporting Document(s) Glucose [Mass/volume] in Capillary blood by Glucometer 154 mg/dL 70-105 Above high normal [facility] ([facility]) order not to draw Doctor Notified ID Date Data Source [id number] 10/11/2019 02:11:00 PM EDT [facility] ([facility] Name Value Range Interpretation Code Description Data Tisha rce(s) Supporting Document(s) Glucose [Mass/volume] in Capillary blood by Glucometer 255 mg/dL 70-105 Above high normal [facility] ([facility] order not to draw Doctor Notified ID Date Data Source [id number] 10/11/2019 02:11:00 PM EDT [facility] ([facility]) Name Value Range Interpretation Code Description Data Tisha rce(s) Supporting Document(s) Glucose [Mass/volume] in Capillary blood by Glucometer 255 mg/dL 70-105 Above high normal [facility] ([facility]) order not to draw Doctor Notified ID Date Data Source [id number] 10/11/2019 01:47:00 PM EDT [facility] ([facility] [...] x 1 cm. Focus of ulcer noted. Elder Counselor sections are submitted in two. -OA 10/13/2019 - 0936 Signed ELIN SEPULVEDA MD 10/13/2019 0937 ID Date Data Source [id number] 10/11/2019 12:04:00 PM EDT [facility] ([facility] Name Value Range Interpretation Code Description Data Tisha rce(s) Supporting Document(s) Glucose [Mass/volume] in Capillary blood by Glucometer 284 mg/dL 70-105 Above high normal [facility] ([facility] ID Date Data Source [id number] 10/11/2019 12:04:00 PM EDT [facility] ([facility]) Name Value Range Interpretation Code Description Data Tisha rce(s) Supporting Document(s) Glucose [Mass/volume] in Capillary blood by Glucometer 284 mg/dL 70-105 Above high normal [facility] ([facility]) ID Date Data Source [id number] 10/08/2019 12:00:00 AM EDT [facility] Name Value Range Interpretation Code Description Data Tisha rce(s) Supporting Document(s) SARS CORONAVIRUS 2 RNA [facility] This lab was ordered by [facility] and reported by [facility]. ID Date Data Source [id number] 09/26/2019 10:36:00 AM EDT [facility] ([facility] [...] Little GFR Left</content>
<content>ESRD GFR <15 on DELIVERY RECRUITER</content>
<content></content> Carbon Dioxide Level 30 meq/L 21-32 [facility] ([facility] Anion Gap 5 meq/L 8-16 [facility] ([facility] Chloride Level 104 meq/L 98-107 [facility] ([facility] Calcium Level 8.8 mg/dL 8.5-10.1 [facility] ([facility] ID Date Data Source [id number] 09/26/2019 10:36:00 AM EDT [facility] ([facility] [...] % 0.0 % 0-0 [facility] ([facility] ID Date Data Source [id number] 09/26/2019 10:36:00 AM EDT [facility] ([facility]) Name Value Range Interpretation Code Description Data Tisha rce(s) Supporting Document(s) Creatinine For GFR 0.91 mg/dL 0.55-1.30 Normal (applies to non -numeric results) [facility] ([facility]) Glucose, Fasting 154 mg/dL 70-100 Above high [facility] Blood Urea Nitrogen 25 mg/dL 7-18 Above high normal [facility] ([facility]) Sodium Level 139 meq/L 136-145 Normal (applies to non-numeric res ults) [facility] ([facility]) Glomerular Filtration Rate Laboratory test result Normal (applies to non- numeric results) [facility] ([facility]) <content>Units are mL/min/1.73 m2</content>
<content></content>
<content>Chronic Kidney Disease Staging per NKF:</content>
<content></content>
<content>Stage I & II GFR >=60 Normal to Mildly Decreased</content>
<content>Stage III GFR 30- 59 Moderately Decreased</content>
<content>Stage IV GFR 15-29 Severely Decreased</content>
<content>Stage V GFR <15 Very Little GFR Left</content>
<content>ESRD GFR <15 on DELIVERY RECRUITER</content>
<content></content> Potassium Serum 4.6 meq/L 3.5-5.1 Normal (applies to non-numeric results) [facility] ([facility]) Carbon Dioxide Level 30 meq/L 21-32 Normal (applies to non-num denita results) [facility] ([facility]) Anion Gap 5 meq/L 8-16 Below low normal [facility] ( [facility]) Chloride Level 104 meq/L 98-107 Normal (applies to non-numeric r esults) [facility] ([facility]) Calcium Level 8.8 mg/dL 8.5-10.1 Normal (applies to non-numeric re sults) [facility] ([facility]) ID Date Data Source [id number] 09/26/2019 10:36:00 AM EDT [facility] ([facility]) Name Value Range Interpretation Code Description Data Tisha rce(s) Supporting Document(s) Hemoglobin 14.0 g/dL 12.0-15.5 Normal (applies to non-numeric resul ts) [facility] ([facility]) White Blood Count 12.0 10 4.0-10.0 Above high normal [facility] ([facility]) Red Blood Count 5.07 10 4.00-5.40 Normal (applies to non-numeric results) [facility] ([facility]) Mean Corpuscular Volume 88.0 fl 80.0-96.0 Normal ( applies to non-numeric results) [facility] ([facility]) Hematocrit 44.6 % 36.0-47.0 Normal (applies to non-numeric resul ts) [facility] Mean Corpuscular Hemoglobin 27.6 pg 27.0-33.0 Norm al (applies to non-numeric results) [facility] ([facility]) Platelet Count, Automated 304 10 150-450 Normal (applies to non-numeric results) [facility] ([facility]) Nucleated Red Blood Cell % 0.0 % 0-0 Normal (applies to n on-numeric results) [facility] ([facility]) Red Cell Distribution Width 14.4 % 11.5-14.5 Norm al (applies to non-numeric results) [facility] ([facility]) Mean Corpuscular HGB Conc 31.4 g/dL 32.0-36.5 Below low normal [facility] ([facility]) ID Date Data Source [id number] 09/26/2019 10:31:00 AM EDT [facility] ([facility]) Name Value Range Interpretation Code Description Data Tisha rce(s) Supporting Document(s) Hemoglobin A1c 11.8 % Normal (applies to non-numeric r esults) [facility] ([facility]) REFERENCE RANGES: 4.5-5.6% NORMAL 5.7-6.4% SUGGESTS IMPAIRED GLUCOSE META BOLISM >= 6.5% ABNORMAL Estimated Average Glucose 292 mg/dL 60-110 Above high normal [facility] ([facility]) ID Date Data Source [id number] 09/26/2019 10:31:00 AM EDT [facility] ([facility]) Name Value Range Interpretation Code Description Data Tisha rce(s) Supporting Document(s) Blood Urea Nitrogen 24 mg/dL 7-18 Above high normal [facility] Glucose, Fasting 153 mg/dL 70-100 Above high normal [facility] Glomerular Filtration Rate Laboratory test result Normal (applies to non- numeric results) [facility] ([facility]) <content>Units are mL/min/1.73 m2</content>
<content></content>
<content>Chronic Kidney Disease Staging per NKF:</content>
<content></content>
<content>Stage I & II GFR >=60 Normal to Mildly Decreased</content>
<content>Stage III GFR 30- 59 Moderately Decreased</content>
<content>Stage IV GFR 15-29 Severely Decreased</content>
<content>Stage V GFR <15 Very Little GFR Left</content>
<content>ESRD GFR <15 on DELIVERY RECRUITER</content>
<content></content> Sodium Level 140 meq/L 136-145 Normal (applies to non-numeric res ults) [facility] ([facility]) Creatinine For GFR 0.86 mg/dL 0.55-1.30 Normal (applies to non -numeric results) [facility] ([facility]) Carbon Dioxide Level 30 meq/L 21-32 Normal (applies to non-num denita results) [facility] ([facility]) Potassium Serum 4.6 meq/L 3.5-5.1 Normal (applies to non-numeric results) [facility] ([facility]) Chloride Level 104 meq/L 98-107 Normal (applies to non-numeric r esults) [facility] ([facility]) Ast/Sgot 12 U/L 7-37 Normal (applies to non-numeric resul ts) [facility] ([facility]) Calcium Level 8.8 mg/dL 8.5-10.1 Normal (applies to non-numeric re sults) [facility] ([facility]) Alt/SGPT 18 U/L 12-78 Normal (applies to non-numeric resul ts) [facility] ([facility]) Anion Gap 6 meq/L 8-16 Below low normal [facility] ( [facility]) Total Protein 6.7 GM/DL 6.4-8.2 Normal (applies to non-numeric re sults) [facility] ([facility]) Bilirubin,Total 0.2 mg/dL 0.2-1.0 Normal (applies to non-numeric results) [facility] ([facility]) Alkaline Phosphatase 154 U/L 45-117 Above high normal [facility] ([facility]) Albumin/Globulin Ratio 0.8 1.2-2.2 Below low normal [facility] ([facility]) Albumin 2.9 GM/DL 3.2-5.2 Below low normal [facility] ( [facility]) ID Date Data Source [id number] 09/19/2019 09:35:00 AM EDT [facility] ([facility]) Name Value Range Interpretation Code Description Data Tisha rce(s) Supporting Document(s) Glucose [Mass/volume] in Capillary blood by Glucometer 248 mg/dL 70-105 Above high normal [facility] ([facility]) ID Date Data Source [id number] 09/19/2019 09:35:00 AM EDT [facility] ([facility], ) Name Value Range Interpretation Code Description Data Tisha rce(s) Supporting Document(s) Glucose [Mass/volume] in Capillary blood by Glucometer 248 mg/dL 70-105 Above high normal [facility] ([facility], ) ID Date Data Source [id number] 09/19/2019 07:10:00 AM EDT [facility] ([facility]) Name Value Range Interpretation Code Description Data Tisha rce(s) Supporting Document(s) Glucose, Fasting 355 mg/dL 70-100 Above high [facility] Blood Urea Nitrogen 16 mg/dL 7-18 Normal (applies to non-nume yogesh results) [facility] ([facility]) Creatinine For GFR 0.96 mg/dL 0.55-1.30 Normal (applies to non -numeric results) [facility] ([facility]) Sodium Level 136 meq/L 136-145 Normal (applies to non-numeric res ults) [facility] ([facility]) Glomerular Filtration Rate Laboratory test result Normal (applies to non- numeric results) [facility] ([facility]) <content>Units are mL/min/1.73 m2</content>
<content></content>
<content>Chronic Kidney Disease Staging per NKF:</content>
<content></content>
<content>Stage I & II GFR >=60 Normal to Mildly Decreased</content>
<content>Stage III GFR 30- 59 Moderately Decreased</content>
<content>Stage IV GFR 15-29 Severely Decreased</content>
<content>Stage V GFR <15 Very Little GFR Left</content>
<content>ESRD GFR <15 on DELIVERY RECRUITER</content>
<content></content> Potassium Serum 4.1 meq/L 3.5-5.1 Normal (applies to non-numeric results) [facility] ([facility]) Chloride Level 103 meq/L 98-107 Normal (applies to non-numeric r esults) [facility] ([facility]) Carbon Dioxide Level 30 meq/L 21-32 Normal (applies to non-num denita results) [facility] Anion Gap 3 meq/L 8-16 Below low normal [facility] ( [facility]) Calcium Level 8.7 mg/dL 8.5-10.1 Normal (applies to non-numeric re sults) [facility] ID Date Data Source [id number] 09/19/2019 07:10:00 AM EDT [facility] Name Value Range Interpretation Code Description Data Tisha rce(s) Supporting Document(s) White Blood Count 11.3 10 4.0-10.0 Above high normal [facility] ([facility]) Hematocrit 42.0 % 36.0-47.0 Normal (applies to non-numeric resul ts) [facility] Red Blood Count 4.80 10 4.00-5.40 Normal (applies to non-numeric results) [facility]) Hemoglobin 13.5 g/dL 12.0-15.5 Normal (applies to non-numeric resul ts) [facility] Mean Corpuscular Hemoglobin 28.1 pg 27.0-33.0 Norm al (applies to non-numeric results) [facility] Mean Corpuscular HGB Conc 32.1 g/dL 32.0-36.5 Normal (applies to non-numeric results) [facility] Mean Corpuscular Volume 87.5 fl 80.0-96.0 Normal ( applies to non-numeric results) [facility] ([facility]) Red Cell Distribution Width 14.1 % 11.5-14.5 Norm al (applies to non-numeric results) [facility] ([facility]) Platelet Count, Automated 259 10 150-450 Normal (applies to non-numeric results) [facility] ([facility]) Nucleated Red Blood Cell % 0.0 % 0-0 Normal (applies to n on-numeric results) [facility] ([facility]) ID Date Data Source [id number] 09/19/2019 07:10:00 AM EDT [facility] ([facility]) Name Value Range Interpretation Code Description Data Tisha rce(s) Supporting Document(s) Glucose, Fasting 355 mg/dL 70-100 Above high normal [facility] ([facility]) Blood Urea Nitrogen 16 mg/dL 7-18 Normal (applies to non-nume yogesh results) [facility] ([facility]) Glomerular Filtration Rate Laboratory test result Normal (applies to non- numeric results) [facility] ([facility], ) <content>Units are mL/min/1.73 m2</content>
<content></content>
<content>Chronic Kidney Disease Staging per NKF:</content>
<content></content>
<content>Stage I & II GFR >=60 Normal to Mildly Decreased</content>
<content>Stage III GFR 30- 59 Moderately Decreased</content>
<content>Stage IV GFR 15-29 Severely Decreased</content>
<content>Stage V GFR <15 Very Little GFR Left</content>
<content>ESRD GFR <15 on DELIVERY RECRUITER</content>
<content></content> Creatinine For GFR 0.96 mg/dL 0.55-1.30 Normal (applies to non -numeric results) [facility] ([facility], ) Sodium Level 136 meq/L 136-145 Normal (applies to non-numeric res ults) [facility] ([facility]) Carbon Dioxide Level 30 meq/L 21-32 Normal (applies to non-num denita results) [facility] ([facility]) Potassium Serum 4.1 meq/L 3.5-5.1 Normal (applies to non-numeric results) [facility] ([facility]) Chloride Level 103 meq/L 98-107 Normal (applies to non-numeric r esults) [facility] ([facility]) Calcium Level 8.7 mg/dL 8.5-10.1 Normal (applies to non-numeric re sults) [facility] ([facility]) Anion Gap 3 meq/L 8-16 Below low normal [facility] ( [facility]) ID Date Data Source [id number] 09/19/2019 07:10:00 AM EDT [facility] ([facility]) Name Value Range Interpretation Code Description Data Tisha rce(s) Supporting Document(s) White Blood Count 11.3 10 4.0-10.0 Above high normal [facility] ([facility]) Hemoglobin 13.5 g/dL 12.0-15.5 Normal (applies to non-numeric resul ts) [facility] ([facility]) Red Blood Count 4.80 10 4.00-5.40 Normal (applies to non-numeric results) [facility] ([facility]) Mean Corpuscular Volume 87.5 fl 80.0-96.0 Normal ( applies to non-numeric results) [facility]) Hematocrit 42.0 % 36.0-47.0 Normal (applies to non-numeric resul ts) [facility]) Mean Corpuscular Hemoglobin 28.1 pg 27.0-33.0 Norm al (applies to non-numeric results) [facility] ([facility]) Platelet Count, Automated 259 10 150-450 Normal (applies to non-numeric results) [facility] ([facility]) Red Cell Distribution Width 14.1 % 11.5-14.5 Norm al (applies to non-numeric results) [facility]) Mean Corpuscular HGB Conc 32.1 g/dL 32.0-36.5 Normal (applies to non-numeric results) [facility]) Nucleated Red Blood Cell % 0.0 % 0-0 Normal (applies to n on-numeric results) [facility]) ID Date Data Source [id number] 09/19/2019 07:09:00 AM EDT [facility] ([facility]) Name Value Range Interpretation Code Description Data Tisha rce(s) Supporting Document(s) Glucose [Mass/volume] in Capillary blood by Glucometer 386 mg/dL 70-105 Above high normal [facility] ([facility]) ID Date Data Source [id number] 09/19/2019 07:09:00 AM EDT [facility] ([facility]) Name Value Range Interpretation Code Description Data Tisha rce(s) Supporting Document(s) Glucose [Mass/volume] in Capillary blood by Glucometer 386 mg/dL 70-105 Above high normal [facility] ID Date Data Source [id number] 08/10/2019 03:55:26 PM EDT [facility] INFORMATIONPatient MRN Name Date of Age Gend*PT [id number] Tatianna Soto 1965 54 years F ---PT Location Admission Date/Time Visit ID Attending Provider --- --- --- --- EPI ID CSN Admitting Provider [id number] ---Addended by: KAREN BAR on: 08/10/2019 03:55 PM Modules accepted: Orders Name Value Range Interpretation Code Description Data Tisha rce(s) Supporting Document(s) ID Date Data Source [id number] 07/26/2019 06:52:00 AM EDT [facility] Name Value Range Interpretation Code Description Data Tisha rce(s) Supporting Document(s) Glucose [Mass/volume] in Capillary blood by Glucometer 173 mg/dL 70-105 Above high normal [facility] ([facility]) ID Date Data Source [id number] 07/26/2019 06:52:00 AM EDT [facility] ([facility]) Name Value Range Interpretation Code Description Data Tisha rce(s) Supporting Document(s) Glucose [Mass/volume] in Capillary blood by Glucometer 173 mg/dL 70-105 Above high normal [facility] ID Date Data Source [id number] 07/06/2019 10:03:25 AM EDT [facility] Name Value Range Interpretation Code Description Data Tisha rce(s) Supporting Document(s) &PDF [facility] GQVLEv2rHyHTRhXn44/WUYdyXCKft0UeNOfjDFa9MCmbIJLzJ0HbkTboOFJCRTVZRV7TTQtJJWXaVNNi FcG [file] EBAAAAwqD+aOqJP8YUAFNTYBANPJARQOSYINRDEPVGPFIHHSE9yEgywt3BYG6ip2NnWJFeNHxadaPiDi pZBqTrEJMqg8QzQTw2FC6QWMIqNYluJY8SO7SsWNB7J2I5GfP4eOReCA4hU2NyYeMnTZ3yyEqfQ1CblK QEQTMNa90an78rdmVfVQ0Bx2xlwwSxYDUkZ6Rjzlss ENETEa5AmAY3mTBcTwFySRBuX0f1YHV9Eb6CZQ0ouPodFCM7UyptPzophRYzQCriSkdovDYQVZWfINRg IPkdZV1WTWJvtuWvCPQmOLHfIUv+Fe9Db0QdTGIgOBvOkf9zJGzzUGjloVpYPuJOIXLZGKIFpgtZMFAA zFQstJeaIrmNRxw3rlBPeZddW6/Mvh6EG8qx4R1tPE Ln/J+crOu/3xS/hBF8NEAU1zW0Ptm/Care Home+ho/a5LOAZis/g+3PqaPo4Mu0kaeG1qRM4/xt/7GpDWKlIZ Ij1HgCzv0R0/Mtl3KKy82DLZ4Sfy2QT5G9w6LBh5ct8/AWeXAjQLF12pk4Mp/Z7TKK8DLirTQCjxIu0X ACaysdKjdoWV3Jx0C0L9jc24WxAY3XCQ909PQihPzR e7COptI/xFG3NSgIxnfyB7/r952IrPPUVNqAutiZUwqxun7nb7n9oW44gSJpAtQB1C/bAX2Amyod76bQ o5Dgxr+N5mSrni2G27fwBuD4qpNi797m/2j2UIbmlzcRWpA/l1ntSwA5nfR/BZ5ute6c/EbzCSjLi47o 9SDd4zCHs8Z3kiiUlHHlLISGUhmf3DbDjLCTsiwv88 yKIh/HUfi7jkgel1/3EE4i2F6xvi3qK+hBI14DlFYH5tXtjTMsFjFRW9HiD2z2rWfrP4X4Oqz5rDSYkg S4XZlTmeSWUudRaviS4iV8gListUEMLH6UA8uIPCDR4Try/jhnX7kg/6OrCigOamuqfrjE2rT+A98O/D ORp7/GKXkVMxPPkdqyi2awqmdT7MOchusWNx+LyvOr 9f2MoeuLNphIX3moVXfGdjlyLNWTVqIcPSowy/8C/J/yASpwp8SmmtmJTndxheoXyaEKRP8qugSO58Vg 0fLBwRj5a2ogqRWlxK0vDxYFbruB2RS7fhxIE9Crv3eHJ2GgdmvdCOUZYZXvz9iD8x6k46dHWe61grry R0SJ4QaHa7ZI3nZacg4DgEcejG+ipes18kw2aW0pHN neVVYLYR2WY8DbpzV4J73dfjEWio6dKWP3Uh1yzgUNZ9qtoX7X+IL+3zJ6CXQCGgtSTbFIsU2egxu1T/ eOCDspmvz2tNqCcI0OATAonthnsAIbCpU1WVVHQIes8h6p+85qKeU32y1Yc5U+wfa53+i6Brm1t2PW+K 7EE+ngkjx4cXS6TQpqwaMEHNMCbX+kM8rmPysF7dCl Ca5+Romie/dFyzCOXkSUIuoc7bNFqB5nGJlRty+9gwOiWGcL5wpmUaMU1Gl5bAp2Oz++18T6jcIIOk10XM [file] NaTeBiQJR4F+/second vp hr assessment/gmtFUu3pZ6T8F9WErNj2lAV3gGm5OxE6eyUGJ1NpzStgzuAnNyl4OoSwZp+dnds/ rUEvRsy0A93q7MXFl4AHUY2GfHJHXXdh6xGH/jZT4pib5Wxvp7gM/SdvU16oT19CbR+DWnUxoROF/V1L jC0uilQZ8TZeHOJcqpZEUjfRplkEcExazNT2IgZcCc p+11UN/KS/2FtUe2NCsoL7bqB5edANrDiUsq7ttlVTaLednFOIV3Xiol+bd7cib2eZeTLJLIw5vKlSer qLF0xUhrFE7MCAKfiAPESp19oRH7hEnbZ2qRcBTlISVdEu4nX2IoFKQojTbA+N5ruQFJHbw3NNU17DR9 nEqygTHvAFSgfzn+1l3dwJ6TKrqPAJVbef3Vt8dtwN uDwSRoyLD5zBFNocMr6LkArLyjpXRuzHoY09T3uUcq1ROWbpLHOiXq2irJ8kD/LOzFss9+KBHhxPnK62 O89ZdxrIsJQCu1yPNYVv0/PbY9umuXxLIStYY9gfnnliL5+8+IgqGNXV5cTj8jvWgB9ivBe+DW2H/YU7 4m2+Mu6VREFzDwTcI5uAfUu7na3xSOUPKUT31NWArp v6Hl/q4fVauvdOu4HtW+pb88gkxUwE7r9chaKKp+bkWpWjqqph9EipM3qC38u8b8QGGD8tpR1OTUmLGy PWYcpGI7UixpfxJ60RiqJ5SlcTxdxqjWdTZTW39lenM7sxMYP+QCZere2sXBn1LXDHF+bjEklyOoR6tm MLggF7ZsVEU3mHA8QnaI7o3/uH3YKnadbbWQ1L1QTF s7EPNNE4oPhq1zvd2X8XsEvTPj+XeTk+PgK2xsySbWhtTc0i7HxpWRQAF2SkagrXG2wjlM3lBG9FcAe5 oJOZB/GMwlsr84pvb+T3FI81eGWEhPQAj+Xd0LRoNLvAurybEkKmK31mIl/EVRbV6XKgDH/Dimple/4Xkow [file] Jesus Manuel/5uj6gNcf+FVx6T/zxdt78i6ds2td/7dbA/3EJ2 [file] xsv8NnTYOf2/HDtx6YLFueHh/zipper cutter/Coqk4WAwL4dt1CntRICcG5MtqEsIiHMiKbNvsfO3vChQNHj3QwO 48nQ3k8sS/FtPkfIhW4QbBr/8bbZevAf4JXm4gjqUmS/fXead5jD+Lj16rh7YS8xfjjHHY0Lz0Lw/CgF 7M81v2UZqfYR8DF/BtuuMAQ3ZtlqkcPqPEbwcaXodu F/GeyAf+Schrader+1aS3ypnq5eh2oJDsa3av+3LfY7147gtCOpHgjQkPETLdFKSWHe1C8TtJsmDA4nHnCWv48 [file] ICAgICAgICAgICAgICAgICAgICAgICAgICAgICAgICAgICAgICAgICAgICAgICAgICAgICAgICAgICAg ICAgICAgICAgICAgICAgICAgICAgICAgICAgICAgIC QrQOGaRR1WOSYlYCKjYUSwFVDzWBGcLLJoWGQrNMYyNGLxZPKzUIYrSUJeIOUfPVUwNBXpCGYpIGFzLA DnOLPpHICbDTMmTJDsHXKzCVJuPXNlPHVnBNNoDINwPKYdIWGmXASkNYVnMOOjVP3HNFAmNNSrNMVcGX AgICAgICAgICAgICAgICAgICAgICAgICAgICAgICAg XGSmNAArVCFwWWWkCKOfLLRsFTBfBGPvTULuWUYqNALvUGAwGBKpSRIfDRTqGDKqCFKkZFRyVFLnUM3C ICAgICAgICAgICAgICAgICAgICAgICAgICAgICAgICAgICAgICAgICAgICAgICAgICAgICAgICAgICAg ICAgICAgICAgICAgICAgICAgICAgICAgICAgICAgIC ByDDYzHMYwIJ8XEKIfQNQjMOJrZZCyMJZiSFVrZEDoDRFqXLRqLUClLDKfBYNnJOTfYVXjLGHwUXRxAM EnRDGeGXLeLDWlQCRwPNIbQTIyLFGvZCHqCVLfORYyGWGoGPDtVIDrISIrNYGyFWLqTY6HHNCkMZPoJQ AgICAgICAgICAgICAgICAgICAgICAgICAgICAgICAg ICAgICAgICAgICAgICAgICAgICAgICAgICAgICAgICAgICAgICAgICAgICAgICAgICAgICAgICAgICAg GD1GZGCpIRHnDAJzWSBsMIGlHQJvOPAlCZTlZMRpZJFtQLIsLTBsRGNcZAXdXURoHRZwJLXuUSEsREHw ICAgICAgICAgICAgICAgICAgICAgICAgICAgICAgIC AwDFKuFQKfQFTgOH2ABIChPAPqHNRtKNMpBDAxBMDlEREvJUEhGYDyHPIpNGXsGGWkDACkMYUzGNYaTA QyWLFfLGHlLRKdOODkMDApMUJpGOMgDRKmIMAaDBYhRQWaOFXhWEShWBTbAZYlILHkLPLwFB5AKEVuVD AgICAgICAgICAgICAgICAgICAgICAgICAgICAgICAg ICAgICAgICAgICAgICAgICAgICAgICAgICAgICAgICAgICAgICAgICAgICAgICAgICAgICAgICAgICAg REToTH6FFZXkGOFjKWTnSKLtXOKxYLLxDNLzAODiAGBkHBHrYLRfNJHjFEKyZDLoAZIbIBZgGAEjJILr ICAgICAgICAgICAgICAgICAgICAgICAgICAgICAgIC LhZNWaUQKgXVBbCSYgEZ5CPD76gKLqw9D6GGDqND4pbdf/Ob7CWMhlfpOvrYGdAL4MLbIiQR3gnh4WUm RjJU8xik5ETZjBIoKoP8D9gFYcADHfLNLKCoNwT02vHWlfHx23JLddMBZwNcRdNKr3Pv6XAaUmQ0foVN YyJjX0NNUySrE8JSKoAkPpNWgqEK3Hw7DvoAThNKy+ Cs1XGH2pu3FcYWqgNUZpYY9axb4AYQaYZkUmI2S9kCSnV0L4GNbuCe2SJCJiQNXrLqVgLWIOVGxoCS1H FR5eulC2WH9ZuUZpGNKpSRRimCHjPTj0L50vhVYyJZxnUU5IBXB+Jose+Gx4RMAEuPKBrPTOeEbGrCDBO MyEbO95neNOaLVQhUSN3NRXdJm8MYJFtB3CalzTlhM zkpaLjWHVcPSLOZG6AYWgrtzJfwJCamZjcWQ37cQweDH4GPe7JMoWpKR3zal0JbFNvZx4NFWVvIX0MTO KpAUHhWJKhBCJ7ZKJtXiDeIBgwJFWaONWtOOO5AIMqUVOiLV9YCxGvVOPqNQPfBkHuVQFeMSAiyx6CCX FzOGI7OLX2IJIyZYKgAXCgRAufQHKsLACuRXlwSRKh VXNfUS0UXyDaLTUsHMC1UEbgPJHjKMYgyn3RMLWbCRGoWqs1KvVyCTTaFNThNYpmSZJzMBW2DBQjVQDh LZXnTL1XWqFsVHHvZPKkQmEyPVSqCRHuje5WOBGiOKKhCqL1EBUmVPPtLOKtBPlgVBDbGSL7IEosOEFu YKZfHA9NCvEcHQQjBIv6IrVyEFUvJGRzsc3BUSIwEO OnAVLmLMCbQWTuLGUxSFjzOJWtFFV1ZQCdGXUfMQFoRZ5PDkNaKTXnVGhlBeCfGFFjIYXere4CLKErTD SdAQt3EVMlMOLcAGFbFXtzGJEkBUSuUEqdBDXfHIVdDV2SIcWrFOLmFSFpLpUePPNiMZDnqa1CUYIsNK HkSaQ1WkApUOPfVNDzAFlpNXRxWMV1PWb2VLHrXNGl XE6MCwNoFTAsYHmyCNJmKWTgBWRkqs1PUNYwMXYzBGG7IqDsBEGxHTWnQKhmRACfQWM8TdAjYQVbKUEy RW9HGqTcORWoXCq8KuCeDAJpDQCkak8FTJKgXZX6KDP7RRUqFMYqXGXiIJvuVQAwCEbiHpJ5XSXgFEEi JG4RKfBfEAZmMHTcBQRvBWHcNAOrwp1NVJDbJKX2Zl tiBNDnCCMdBQCzFVtfJZSaPTw0OXYlZTCfQPSaWJ3GDiVbRSppLMTZKnz7GJekW2n6DKEwTL9DV7Oda7 DyVajcXLEHUMafDC2zbnWaJDYmNs1UB0eWAgwySNdpEFMoVDxfLJM7K3GpUep2KGp3OpqkUzbjMiC1SF 2hELKlCXOvD6CbBPDeLgP4J9MsHHZ7CHK0BKJwO9M2 LDq9KqVnCX6RNm8QKjK6FWU8fOPfQo2JBZOqBKAKTxQzEF0WAJb= ID Date Data Source [id number] 07/05/2019 04:39:00 PM EDT [facility] ([facility]) Name Value Range Interpretation Code Description Data Tisha rce(s) Supporting Document(s) Osmolality of Serum or Plasma 294 MOSM/KG 275-295 No rmal (applies to non-numeric results) [facility] ([facility]) <content>note:<nlbl:demographic_changed> </content>
<content></content> Osmolality of Urine 521 MOSM/KG 500-800 Normal (applies to no n-numeric results) [facility] ([facility]) ID Date Data Source [id number] 07/05/2019 04:39:00 PM EDT [facility] ([facility]) Name Value Range Interpretation Code Description Data Tisha rce(s) Supporting Document(s) Alkaline Phosphatase 148 U/L 45-117 Above high normal [facility] ([facility]) Ast/Sgot 11 U/L 7-37 Normal (applies to non-numeric resul ts) [facility] ([facility]) Alt/SGPT 15 U/L 12-78 Normal (applies to non-numeric resul ts) [facility] ([facility]) Albumin 3.0 GM/DL 3.2-5.2 Below low normal [facility] Bilirubin,Direct Laboratory test result 0.0-0.2 Normal ( applies to non-numeric results) [facility] ([facility]) Bilirubin,Total 0.1 mg/dL 0.2-1.0 Below low normal [facility] ([facility]) Total Protein 6.9 GM/DL 6.4-8.2 Normal (applies to non-numeric re sults) [facility] ([facility]) Albumin/Globulin Ratio 0.77 1.00-1.93 Below low normal [facility] ([facility]) ID Date Data Source [id number] 07/05/2019 04:39:00 PM EDT [facility] ([facility]) Name Value Range Interpretation Code Description Data Itsha rce(s) Supporting Document(s) C reactive protein [Mass/volume] in Serum or Plasma by High sensitivity method 1.76 mg/dL 0.00-0.30 Above high normal [facility] ([facility]) <content>note:<nlbl:demographic_changed> </content>
<content></content> Lactate [Mass/volume] in Serum or Plasma 1.9 mmol/L 0.4-2.0 Normal (applies to non-numeric results) [facility] <content>note:<nlbl:demographic_changed> </content>
<content>Y/N query for Sepsis Lactate Rule: Y</content>
<content></content> ID Date Data Source [id number] 07/05/2019 04:39:00 PM EDT [facility] ([facility]) Name Value Range Interpretation Code Description Data Tisha rce(s) Supporting Document(s) Hemoglobin 15.3 g/dL 12.0-15.5 Normal (applies to non-numeric resul ts) [facility] White Blood Count 12.6 10 4.0-10.0 Above high normal [facility] Red Blood Count 5.26 10 4.00-5.40 Normal (applies to non-numeric results) [facility] ([facility]) Hematocrit 46.6 % 36.0-47.0 Normal (applies to non-numeric resul ts) [facility] Mean Corpuscular Hemoglobin 29.1 pg 27.0-33.0 Norm al (applies to non-numeric results) [facility] Mean Corpuscular Volume 88.6 fl 80.0-96.0 Normal ( applies to non-numeric results) [facility] ([facility]) Red Cell Distribution Width 13.5 % 11.5-14.5 Norm al (applies to non-numeric results) [facility] ([facility]) Neutrophils % 69.5 % 36.0-66.0 Above high normal [facility] ([facility]) Mean Corpuscular HGB Conc 32.8 g/dL 32.0-36.5 Normal (applies to non-numeric results) [facility] Platelet Count, Automated 290 10 150-450 Normal (applies to non-numeric results) [facility] Lymph % 20.1 % 24.0-44.0 Below low normal [facility] ( [facility]) Eos % 3.9 % 0.0-3.0 Above high normal [facility] ([facility]) [place] % 5.3 % 0.0-5.0 Above high normal [facility] ([facility]) Nucleated Red Blood Cell % 0.0 % 0-0 Normal (applies to n on-numeric results) [facility] ([facility]) Neutrophils # 8.8 10 1.5-8.5 Above high normal [facility] ([facility]) Baso % 0.6 % 0.0-1.0 Normal (applies to non-numeric resul ts) [facility] ([facility]) Immature Granulocyte % 0.6 % 0-3.0 Normal (applies to non-n umeric results) [facility] ([facility]) [place] # 0.7 10 0.0-0.8 Normal (applies to non-numeric resul ts) [facility] ([facility]) Eos # 0.5 10 0.0-0.5 Normal (applies to non-numeric resul ts) [facility] ([facility]) Lymph # 2.5 10 1.5-5.0 Normal (applies to non-numeric resul ts) [facility] ([facility]) Baso # 0.1 10 0.0-0.2 Normal (applies to non-numeric resul ts) [facility] ([facility]) ID Date Data Source [id number] 07/05/2019 04:39:00 PM EDT [facility] ([facility]) Name Value Range Interpretation Code Description Data Tisha rce(s) Supporting Document(s) Glomerular Filtration Rate Laboratory test result Normal (applies to non- numeric results) [facility] ([facility]) <content>Units are mL/min/1.73 m2</content>
<content></content>
<content>Chronic Kidney Disease Staging per NKF:</content>
<content></content>
<content>Stage I & II GFR >=60 Normal to Mildly Decreased</content>
<content>Stage III GFR 30- 59 Moderately Decreased</content>
<content>Stage IV GFR 15-29 Severely Decreased</content>
<content>Stage V GFR <15 Very Little GFR Left</content>
<content>ESRD GFR <15 on DELIVERY RECRUITER</content>
<content></content> Glucose, Fasting 119 mg/dL 70-100 Above high normal [facility] ([facility]) Creatinine For GFR 0.97 mg/dL 0.55-1.30 Normal (applies to non -numeric results) [facility] ([facility]) Blood Urea Nitrogen 13 mg/dL 7-18 Normal (applies to non-nume yogesh results) [facility] Potassium Serum 4.8 meq/L 3.5-5.1 Normal (applies to non-numeric results) [facility] ([facility]) Sodium Level 139 meq/L 136-145 Normal (applies to non-numeric res ults) [facility] Chloride Level 106 meq/L 98-107 Normal (applies to non-numeric r esults) [facility] ([facility]) Calcium Level 9.1 mg/dL 8.5-10.1 Normal (applies to non-numeric re sults) [facility] ([facility]) Anion Gap 4 meq/L 8-16 Below low normal [facility] ( [facility]) Carbon Dioxide Level 29 meq/L 21-32 Normal (applies to non-num deinta results) [facility] ([facility]) ID Date Data Source [id number] 06/17/2019 12:47:00 PM EST [facility] ([facility]) Name Value Range Interpretation Code Description Data Tisha rce(s) Supporting Document(s) Glucose, Fasting 825 mg/dL 70-100 Above upper panic limits [facility] ([facility]) Creatinine For GFR 1.15 mg/dL 0.55-1.30 Normal (applies to non -numeric results) [facility] ([facility]) Glomerular Filtration Rate 52.8 Normal (applies to n on-numeric results) [facility] ([facility]) <content>Units are mL/min/1.73 m2</content>
<content></content>
<content>Chronic Kidney Disease Staging per NKF:</content>
<content></content>
<content>Stage I & II GFR >=60 Normal to Mildly Decreased</content>
<content>Stage III GFR 30- 59 Moderately Decreased</content>
<content>Stage IV GFR 15-29 Severely Decreased</content>
<content>Stage V GFR <15 Very Little GFR Left</content>
<content>ESRD GFR <15 on DELIVERY RECRUITER</content>
<content></content> Blood Urea Nitrogen 22 mg/dL 7-18 Above high normal [facility] ([facility]) Sodium Level 126 meq/L 136-145 Below low [facility] Potassium Serum 5.0 meq/L 3.5-5.1 Normal (applies to non-numeric results) [facility] ([facility]) Testing was performed on a SLIGHTLY hemo lyzed specimen. Suggest recollection of specimen for more accurate test results. Chloride Level 92 meq/L 98-107 Below low normal [facility] ([facility]) Anion Gap 10 meq/L 8-16 Normal (applies to non-numeric resul ts) [facility] ([facility]) Carbon Dioxide Level 24 meq/L 21-32 Normal (applies to non-num denita results) [facility] ([facility]) Calcium Level 8.9 mg/dL 8.5-10.1 Normal (applies to non-numeric re sults) [facility] ([facility]) ID Date Data Source [id number] 06/17/2019 12:47:00 PM EST [facility] ([facility]) Name Value Range Interpretation Code Description Data Tisha rce(s) Supporting Document(s) Osmolality of Serum or Plasma 313 MOSM/KG 275-295 Above high nellie l [facility] ([facility]) <content>note:<nlbl:[email or web address]> </content>
<content></content> ID Date Data Source [id number] 06/17/2019 12:46:00 PM EST [facility] ([facility]) Name Value Range Interpretation Code Description Data Tisha rce(s) Supporting Document(s) Venous PH 7.389 units 7.330-7.430 Normal (applies to non-numeric res ults) [facility] Venous Total Co2 24.6 meq/L 24.0-28.0 Normal (applies to non-numeric results) [facility] ([facility]) Venous Partial Pressure Co2 39.6 mmHg 38.0-50.0 Norm al (applies to non-numeric results) [facility] Venous Partial Pressure O2 142.2 mmHg 30.0-50.0 Above high normal [facility] ([facility]) Venous Base Excess -1.4 Normal (applies to non-numer ic results) [facility] ([facility]) Venous Hco3 23.4 meq/L 23.0-27.0 Normal (applies to non-numeric resu lts) [facility] Venous Standard Hco3 23.4 meq/L Normal (applies to non-num denita results) [facility] ([facility]) Venous O2 Saturation 98.4 % 60.0-80.0 Above high normal [facility] ([facility]) ID Date Data Source [id number] 06/17/2019 12:46:00 PM EST [facility] Name Value Range Interpretation Code Description Data Tisha rce(s) Supporting Document(s) White Blood Count 9.9 10 4.0-10.0 Normal (applies to non-numeri c results) [facility] ([facility]) Mean Corpuscular Volume 87.1 fl 80.0-96.0 Normal ( applies to non-numeric results) [facility] ([facility]) Red Blood Count 5.33 10 4.00-5.40 Normal (applies to non-numeric results) [facility] ([facility]) Hemoglobin 14.9 g/dL 12.0-15.5 Normal (applies to non-numeric resul ts) [facility] Hematocrit 46.4 % 36.0-47.0 Normal (applies to non-numeric resul ts) [facility] [facility] ([facility] Red Cell Distribution Width 13.6 % 11.5-14.5 Norm al (applies to non-numeric results) [facility] ([facility]) Mean Corpuscular HGB Conc 32.1 g/dL 32.0-36.5 Normal (applies to non-numeric results) [facility] ([facility]) Mean Corpuscular Hemoglobin 28.0 pg 27.0-33.0 Norm al (applies to non-numeric results) [facility] ([facility]) Neutrophils % 78.7 % 36.0-66.0 Above high normal [facility] ([facility]) Lymph % 14.8 % 24.0-44.0 Below low normal [facility] ( [facility]) Platelet Count, Automated 357 10 150-450 Normal (applies to non-numeric results) [facility] ([facility]) [place] % 4.1 % 0.0-5.0 Normal (applies to non-numeric resul ts) [facility] ([facility]) Immature Granulocyte % 0.5 % 0-3.0 Normal (applies to non-n umeric results) [facility] ([facility]) Baso % 0.6 % 0.0-1.0 Normal (applies to non-numeric resul ts) [facility] ([facility]) Eos % 1.3 % 0.0-3.0 Normal (applies to non-numeric resul ts) [facility] ([facility]) Nucleated Red Blood Cell % 0.0 % 0-0 Normal (applies to n on-numeric results) [facility] ([facility]) Neutrophils # 7.8 10 1.5-8.5 Normal (applies to non-numeric re sults) [facility] ([facility]) Lymph # 1.5 10 1.5-5.0 Normal (applies to non-numeric resul ts) [facility] ([facility]) [place] # 0.4 10 0.0-0.8 Normal (applies to non-numeric resul ts) [facility] ([facility]) Eos # 0.1 10 0.0-0.5 Normal (applies to non-numeric resul ts) [facility] ([facility]) Baso # 0.1 10 0.0-0.2 Normal (applies to non-numeric resul ts) [facility] ([facility]) ID Date Data Source [id number] 06/17/2019 12:46:00 PM EST [facility] ([facility]) Name Value Range Interpretation Code Description Data Tisha rce(s) Supporting Document(s) Lactate [Mass/volume] in Serum or Plasma 2.5 mmol/L 0.4-2.0 Above upper panic limits [facility] ([facility]) <content>note:<nlbl:[email or web address]> </content>
<content>Y/N query for Sepsis Lactate Rule: Y</content>
<content></content> ID Date Data Source [id number] 06/17/2019 12:46:00 PM EST [facility] ([facility]) Name Value Range Interpretation Code Description Data Tisha rce(s) Supporting Document(s) Estimated Average Glucose 249 mg/dL 60-110 Above high normal [facility] ([facility]) Hemoglobin A1c 10.3 % Normal (applies to non-numeric r esults) [facility] ([facility]) REFERENCE RANGES: 4.5-5.6% NORMAL 5.7-6.4% SUGGESTS IMPAIRED GLUCOSE META BOLISM >= 6.5% ABNORMAL ID Date Data Source [id number] 06/14/2019 07:06:00 AM EST [facility] ([facility]) Name Value Range Interpretation Code Description Data Tisha rce(s) Supporting Document(s) Malb Urine Siemens 51.4 mg/L Normal (applies to non-numer ic results) [facility] ([facility]) Creatinine, Urine 54.9 mg/dL Normal (applies to non-numeri c results) [facility] ([facility]) Kevyn/Creat Ratio 93.6 MCG/MG 0.0-30.0 Above high normal [facility] [employer] STATES THAT MICROALBUMINURIA IS PRESENT IF THE MICROALBUMIN/CREATININE RATIO EXCEEDS 30 MCG/MG. THE THRESHOLD FOR CLINICAL ALBUMINURIA IS REACHED AT 300 MCG/MG. THE CLASSIFICATION OF A PATIENT SHOULD BE BASED UPON AT LEAST 2 OF 3 ABNORMAL RESULTS ON SPECIMENS COLLECTED WITHIN A 3 TO 6 MONTH TIME FRAME. ID Date Data Source [id number] 06/14/2019 07:02:00 AM EST [facility] ([facility]) Name Value Range Interpretation Code Description Data Tisha rce(s) Supporting Document(s) Hemoglobin A1c 10.4 % Normal (applies to non-numeric r esults) [facility] REFERENCE RANGES: 4.5-5.6% NORMAL 5.7-6.4% SUGGESTS IMPAIRED GLUCOSE META BOLISM >= 6.5% ABNORMAL Estimated Average Glucose 252 mg/dL 60-110 Above high normal [facility] ([facility]) ID Date Data Source [id number] 06/14/2019 07:02:00 AM EST [facility] ([facility]) Name Value Range Interpretation Code Description Data Tisha rce(s) Supporting Document(s) Cholesterol Level 218 mg/dL Above high normal [facility] ([facility]) Triglycerides Level 384 mg/dL Above high normal [facility] HDL Cholesterol 34 mg/dL Below low normal [facility] ([facility]) LDL Cholesterol 107 mg/dL Above high normal [facility] ([facility]) Non-HDL-C 184 mg/dL Normal (applies to non-numeric resul ts) [facility] ([facility]) Cholesterol Risk Ratio 6.411 Above high normal [facility] ([facility]) ID Date Data Source [id number] 06/14/2019 07:02:00 AM EST [facility] ([facility]) Name Value Range Interpretation Code Description Data Tisha rce(s) Supporting Document(s) Creatinine For GFR 1.23 mg/dL 0.55-1.30 Normal (applies to non -numeric results) [facility] ([facility]) Glucose, Fasting 265 mg/dL 70-100 Above high normal [facility] ([facility]) Blood Urea Nitrogen 23 mg/dL 7-18 Above high normal [facility] ([facility]) Sodium Level 137 meq/L 136-145 Normal (applies to non-numeric res ults) [facility] Potassium Serum 4.4 meq/L 3.5-5.1 Normal (applies to non-numeric results) [facility] ([facility]) Glomerular Filtration Rate 48.8 Below low normal [facility] <content>Units are mL/min/1.73 m2</content>
<content></content>
<content>Chronic Kidney Disease Staging per NKF:</content>
<content></content>
<content>Stage I & II GFR >=60 Normal to Mildly Decreased</content>
<content>Stage III GFR 30- 59 Moderately Decreased</content>
<content>Stage IV GFR 15-29 Severely Decreased</content>
<content>Stage V GFR <15 Very Little GFR Left</content>
<content>ESRD GFR <15 on DELIVERY RECRUITER</content>
<content></content> Anion Gap 4 meq/L 8-16 Below low normal [facility] ( [facility]) Chloride Level 104 meq/L 98-107 Normal (applies to non-numeric r esults) [facility] ([facility]) Carbon Dioxide Level 29 meq/L 21-32 Normal (applies to non-num denita results) [facility] ([facility]) Alkaline Phosphatase 158 U/L 45-117 Above high normal [facility] ([facility]) Calcium Level 9.4 mg/dL 8.5-10.1 Normal (applies to non-numeric re sults) [facility] ([facility]) Ast/Sgot 10 U/L 7-37 Normal (applies to non-numeric resul ts) [facility] ([facility]) Alt/SGPT 13 U/L 12-78 Normal (applies to non-numeric resul ts) [facility] ([facility]) Bilirubin,Total 0.2 mg/dL 0.2-1.0 Normal (applies to non-numeric results) [facility] ([facility]) Albumin 3.2 GM/DL 3.2-5.2 Normal (applies to non-numeric resul ts) [facility] ([facility]) Total Protein 7.1 GM/DL 6.4-8.2 Normal (applies to non-numeric re sults) [facility] ([facility]) Albumin/Globulin Ratio 0.82 1.00-1.93 Below low normal [facility] ([facility]) ID Date Data Source [id number] 06/14/2019 07:02:00 AM EST [facility] ([facility]) Name Value Range Interpretation Code Description Data Tisha rce(s) Supporting Document(s) Red Blood Count 5.29 10 4.00-5.40 Normal (applies to non-numeric results) [facility] ([facility]) White Blood Count 10.4 10 4.0-10.0 Above high normal [facility] ([facility]) Hematocrit 46.0 % 36.0-47.0 Normal (applies to non-numeric resul ts) [facility] ([facility]) Hemoglobin 14.7 g/dL 12.0-15.5 Normal (applies to non-numeric resul ts) [facility] ([facility]) Mean Corpuscular Hemoglobin 27.8 pg 27.0-33.0 Norm al (applies to non-numeric results) [facility] ([facility]) Mean Corpuscular Volume 87.0 fl 80.0-96.0 Normal ( applies to non-numeric results) [facility] ([facility]) Platelet Count, Automated 358 10 150-450 Normal (applies to non-numeric results) [facility] ([facility]) Mean Corpuscular HGB Conc 32.0 g/dL 32.0-36.5 Normal (applies to non-numeric results) [facility] ([facility]) Red Cell Distribution Width 13.3 % 11.5-14.5 Norm al (applies to non-numeric results) [facility] ([facility]) [place] % 6.6 % 0.0-5.0 Above high normal [facility] ([facility]) Lymph % 26.2 % 24.0-44.0 Normal (applies to non-numeric resul ts) [facility] ([facility]) Neutrophils % 62.4 % 36.0-66.0 Normal (applies to non-numeric re sults) [facility] ([facility]) Eos % 3.3 % 0.0-3.0 Above high normal [facility] ([facility]) Baso % 0.9 % 0.0-1.0 Normal (applies to non-numeric resul ts) [facility] ([facility]) Immature Granulocyte % 0.6 % 0-3.0 Normal (applies to non-n umeric results) [facility] ([facility]) Lymph # 2.7 10 1.5-5.0 Normal (applies to non-numeric resul ts) [facility] ([facility]) [place] # 0.7 10 0.0-0.8 Normal (applies to non-numeric resul ts) [facility] ([facility]) Nucleated Red Blood Cell % 0.0 % 0-0 Normal (applies to n on-numeric results) [facility] ([facility]) Neutrophils # 6.5 10 1.5-8.5 Normal (applies to non-numeric re sults) [facility] ([facility]) Eos # 0.3 10 0.0-0.5 Normal (applies to non-numeric resul ts) [facility] ([facility]) Baso # 0.1 10 0.0-0.2 Normal (applies to non-numeric resul ts) [facility] ([facility]) ID Date Data Source [id number] 05/17/2019 10:02:00 AM EST [facility] Name Value Range Interpretation Code Description Data Tisha rce(s) Supporting Document(s) Glucose [Mass/volume] in Capillary blood by Glucometer 240 mg/dL 70-105 Above high normal [facility] ([facility]) ID Date Data Source [id number] 05/17/2019 10:02:00 AM EST [facility] ([facility] Name Value Range Interpretation Code Description Data Tisha rce(s) Supporting Document(s) Glucose [Mass/volume] in Capillary blood by Glucometer 240 mg/dL 70-105 Above high normal [facility] ([facility], ) ID Date Data Source [id number] 05/17/2019 07:30:00 AM EST [facility] ([facility] Name Value Range Interpretation Code Description Data Tisha rce(s) Supporting Document(s) Glucose [Mass/volume] in Capillary blood by Glucometer 344 mg/dL 70-105 Above high normal [facility] ([facility]) ID Date Data Source [id number] 05/17/2019 07:30:00 AM EST [facility] Name Value Range Interpretation Code Description Data Tisha rce(s) Supporting Document(s) Glucose [Mass/volume] in Capillary blood by Glucometer 344 mg/dL 70-105 Above high normal [facility] ([facility], ) ID Date Data Source [id number] 05/17/2019 07:20:00 AM EST [facility] ([facility]) Name Value Range Interpretation Code Description Data Tisha rce(s) Supporting Document(s) Creatinine For GFR 0.97 mg/dL 0.55-1.30 Normal (applies to non -numeric results) [facility] Blood Urea Nitrogen 22 mg/dL 7-18 Above high normal [facility] ([facility]) Glucose, Fasting 402 mg/dL 70-100 Above upper panic limits [facility] ([facility]) Glomerular Filtration Rate Laboratory test result Normal (applies to non- numeric results) [facility] ([facility]) <content>Units are mL/min/1.73 m2</content>
<content></content>
<content>Chronic Kidney Disease Staging per NKF:</content>
<content></content>
<content>Stage I & II GFR >=60 Normal to Mildly Decreased</content>
<content>Stage III GFR 30- 59 Moderately Decreased</content>
<content>Stage IV GFR 15-29 Severely Decreased</content>
<content>Stage V GFR <15 Very Little GFR Left</content>
<content>ESRD GFR <15 on DELIVERY RECRUITER</content>
<content></content> Potassium Serum 4.8 meq/L 3.5-5.1 Normal (applies to non-numeric results) [facility] Sodium Level 136 meq/L 136-145 Normal (applies to non-numeric res ults) [facility] ([facility]) Carbon Dioxide Level 29 meq/L 21-32 Normal (applies to non-num denita results) [facility] ([facility]) Chloride Level 101 meq/L 98-107 Normal (applies to non-numeric r esults) [facility] ([facility]) Calcium Level 8.7 mg/dL 8.5-10.1 Normal (applies to non-numeric re sults) [facility] ([facility]) Anion Gap 6 meq/L 8-16 Below low normal [facility] ( [facility]) ID Date Data Source [id number] 05/17/2019 07:20:00 AM EST [facility] ([facility]) Name Value Range Interpretation Code Description Data Tisha rce(s) Supporting Document(s) Red Blood Count 5.26 10 4.00-5.40 Normal (applies to non-numeric results) [facility] ([facility]) Hemoglobin 14.7 g/dL 12.0-15.5 Normal (applies to non-numeric resul ts) [facility] ([facility]) White Blood Count 9.7 10 4.0-10.0 Normal (applies to non-numeri c results) [facility] ([facility]) Mean Corpuscular Volume 87.5 fl 80.0-96.0 Normal ( applies to non-numeric results) [facility] ([facility]) Hematocrit 46.0 % 36.0-47.0 Normal (applies to non-numeric resul ts) [facility] Mean Corpuscular HGB Conc 32.0 g/dL 32.0-36.5 Normal (applies to non-numeric results) [facility] ([facility]) Mean Corpuscular Hemoglobin 27.9 pg 27.0-33.0 Norm al (applies to non-numeric results) [facility] ([facility]) Nucleated Red Blood Cell % 0.0 % 0-0 Normal (applies to n on-numeric results) [facility] ([facility]) Platelet Count, Automated 268 10 150-450 Normal (applies to non-numeric results) [facility] ([facility]) Red Cell Distribution Width 13.1 % 11.5-14.5 Norm al (applies to non-numeric results) [facility] ([facility]) ID Date Data Source [id number] 05/17/2019 07:20:00 AM EST [facility] ([facility]) Name Value Range Interpretation Code Description Data Tisha rce(s) Supporting Document(s) Blood Urea Nitrogen 22 mg/dL 7-18 Above high normal [facility] ([facility]) Creatinine For GFR 0.97 mg/dL 0.55-1.30 Normal (applies to non -numeric results) [facility] ([facility], ) Glucose, Fasting 402 mg/dL 70-100 Above upper panic limits [facility] Glomerular Filtration Rate Laboratory test result Normal (applies to non- numeric results) [facility] ([facility]) <content>Units are mL/min/1.73 m2</content>
<content></content>
<content>Chronic Kidney Disease Staging per NKF:</content>
<content></content>
<content>Stage I & II GFR >=60 Normal to Mildly Decreased</content>
<content>Stage III GFR 30- 59 Moderately Decreased</content>
<content>Stage IV GFR 15-29 Severely Decreased</content>
<content>Stage V GFR <15 Very Little GFR Left</content>
<content>ESRD GFR <15 on DELIVERY RECRUITER</content>
<content></content> Sodium Level 136 meq/L 136-145 Normal (applies to non-numeric res ults) [facility] ([facility], ) Potassium Serum 4.8 meq/L 3.5-5.1 Normal (applies to non-numeric results) [facility] ([facility]) Chloride Level 101 meq/L 98-107 Normal (applies to non-numeric r esults) [facility] ([facility]) Anion Gap 6 meq/L 8-16 Below low normal [facility] ( [facility]) Carbon Dioxide Level 29 meq/L 21-32 Normal (applies to non-num denita results) [facility] ([facility]) Calcium Level 8.7 mg/dL 8.5-10.1 Normal (applies to non-numeric re sults) [facility] ([facility]) ID Date Data Source [id number] 05/17/2019 07:20:00 AM EST [facility] ([facility]) Name Value Range Interpretation Code Description Data Tisha rce(s) Supporting Document(s) White Blood Count 9.7 10 4.0-10.0 Normal (applies to non-numeri c results) [facility] ([facility], ) Hemoglobin 14.7 g/dL 12.0-15.5 Normal (applies to non-numeric resul ts) [facility]) Red Blood Count 5.26 10 4.00-5.40 Normal (applies to non-numeric results) [facility] ([facility]) Hematocrit 46.0 % 36.0-47.0 Normal (applies to non-numeric resul ts) [facility]) Mean Corpuscular Hemoglobin 27.9 pg 27.0-33.0 Norm al (applies to non-numeric results) [facility] ([facility]) Mean Corpuscular Volume 87.5 fl 80.0-96.0 Normal ( applies to non-numeric results) [facility] ([facility]) Mean Corpuscular HGB Conc 32.0 g/dL 32.0-36.5 Normal (applies to non-numeric results) [facility] ([facility]) Platelet Count, Automated 268 10 150-450 Normal (applies to non-numeric results) [facility] ([facility]) Red Cell Distribution Width 13.1 % 11.5-14.5 Norm al (applies to non-numeric results) [facility] ([facility]) Nucleated Red Blood Cell % 0.0 % 0-0 Normal (applies to n on-numeric results) [facility] ([facility]) ID Date Data Source [id number] 03/21/2019 12:06:00 PM EST [facility] ([facility]) Name Value Range Interpretation Code Description Data Tisha rce(s) Supporting Document(s) Glucose [Mass/volume] in Capillary blood by Glucometer 444 mg/dL 70-105 Above high normal [facility] ([facility]) ID Date Data Source [id number] 03/21/2019 10:07:00 AM EST [facility] ([facility]) Name Value Range Interpretation Code Description Data Tisha rce(s) Supporting Document(s) Venous PH 7.377 units 7.330-7.430 Normal (applies to non-numeric res ults) [facility] ([facility]) Venous Total Co2 25.0 meq/L 24.0-28.0 Normal (applies to non-numeric results) [facility] ([facility]) Venous Partial Pressure O2 78.8 mmHg 30.0-50.0 Above high normal [facility] ([facility]) Venous Partial Pressure Co2 41.3 mmHg 38.0-50.0 Norm al (applies to non-numeric results) [facility] ([facility]) Venous Base Excess -1.4 Normal (applies to non-numer ic results) [facility] Venous Hco3 23.7 meq/L 23.0-27.0 Normal (applies to non-numeric resu lts) [facility] Venous Standard Hco3 23.3 meq/L Normal (applies to non-num denita results) [facility] ([facility]) Venous O2 Saturation 96.1 % 60.0-80.0 Above high normal [facility] ([facility]) ID Date Data Source [id number] 03/21/2019 10:07:00 AM EST [facility] ([facility]) Name Value Range Interpretation Code Description Data [facility] rce(s) Supporting Document(s) Appearance, Urine RFX Laboratory test result Nor mal (applies to non-numeric results) [facility] PH,Urine RFX 6.0 units 5.0-9.0 Normal (applies to non-numeric res ults) [facility]) Specific Bruno Ur Auto RFX 1.025 1.002-1.035 Nor mal (applies to non-numeric results) [facility]) Color, Urine RFX Laboratory test result Normal ( applies to non-numeric results) [facility] ([facility]) Glucose, Urine (Ua) Auto RFX Laboratory test result Above high normal [facility] ([facility]) Ketone, Urine Auto RFX Laboratory test result No rmal (applies to non-numeric results) [facility]) Protein, Urine Auto RFX Laboratory test result N ormal (applies to non-numeric results) [facility] ([facility]) Nitrite, Urine Auto RFX Laboratory test result N ormal (applies to non-numeric results) [facility]) Bilirubin, Urine Auto RFX Laboratory test result Normal (applies to non- numeric results) [facility] ([facility]) Urobilinogen, Urine Auto RFX 0.2 mg/dL 0.0-2.0 Nor mal (applies to non-numeric results) [facility]) Blood, Urine Blood RFX Laboratory test result No rmal (applies to non-numeric results) [facility]) WBC, Urine Auto RFX 2 /HPF 0-3 Normal (applies to non-nume yogesh results) [facility] ([facility]) Leukocyte Esterase Ur Auto RFX Laboratory test result Abov e high normal [facility] ([facility]) Bacteria, Urine Auto RFX Laboratory test result Normal (applies to non-numeric results) [facility]) RBC, Urine Auto RFX 2 /HPF 0-3 Normal (applies to non-nume yogesh results) [facility]) Squam Epithelial Cell Ur Aurfx 0 /HPF 0-6 N ormal (applies to non-numeric results) [facility] [facility] Hyaline Cast, Urine Auto RFX 0 /LPF 0-1 Normal (appl ies to non-numeric results) [facility] ([facility]) ID Date Data Source [id number] 03/21/2019 09:48:00 AM EST [facility]) Name Value Range Interpretation Code Description Data Tisha rce(s) Supporting Document(s) Phosphate [Moles/volume] in Serum or Plasma 5.2 mg/dL 2.5-4.9 Above high normal [facility]) <content>note:<nlbl:demographic_changed> </content>
<content></content> Acetone [Mass/volume] in Serum or Plasma 2.47 mg/dL Normal (applies to non- numeric results) [facility] ([facility]) <content>note:<nlbl:demographic_changed> </content>
<content></content> Lipase [Enzymatic activity/volume] in Serum or Plasma 294 U/L 73-393 Normal (applies to non-numeric results) [facility] ([facility]) <content>note:<nlbl:demographic_changed> </content>
<content></content> Magnesium [Mass/volume] in Serum or Plasma 2.2 mg/dL 1.8-2 .4 Normal (applies to non-numeric results) [facility] ([facility]) <content>note:<nlbl:demographic_changed> </content>
<content></content> Osmolality of Serum or Plasma 322 MOSM/KG 275-295 Above high nellie l [facility] ([facility]) <content>note:<nlbl:demographic_changed> </content>
<content></content> ID Date Data Source [id number] 03/21/2019 09:48:00 AM EST [facility] ([facility]) Name Value Range Interpretation Code Description Data Tisha rce(s) Supporting Document(s) Blood Urea Nitrogen 28 mg/dL 7-18 Above high normal [facility] ([facility]) Creatinine For GFR 1.19 mg/dL 0.55-1.30 Normal (applies to non -numeric results) [facility] ([facility]) Glucose, Fasting 909 mg/dL 70-100 Above upper panic limits [facility] ([facility]) Potassium Serum 6.1 meq/L 3.5-5.1 Above upper panic limits [facility] ([facility]) Glomerular Filtration Rate 50.9 Below low normal [facility] ([facility]) <content>Units are mL/min/1.73 m2</content>
<content></content>
<content>Chronic Kidney Disease Staging per NKF:</content>
<content></content>
<content>Stage I & II GFR >=60 Normal to Mildly Decreased</content>
<content>Stage III GFR 30- 59 Moderately Decreased</content>
<content>Stage IV GFR 15-29 Severely Decreased</content>
<content>Stage V GFR <15 Very Little GFR Left</content>
<content>ESRD GFR <15 on DELIVERY RECRUITER</content>
<content></content> Sodium Level 123 meq/L 136-145 Below low normal [facility] ([facility]) Anion Gap 10 meq/L 8-16 Normal (applies to non-numeric resul ts) [facility] ([facility]) Carbon Dioxide Level 26 meq/L 21-32 Normal (applies to non-num denita results) [facility] ([facility]) Chloride Level 87 meq/L 98-107 Below low normal [facility] ([facility]) Calcium Level 9.4 mg/dL 8.5-10.1 Normal (applies to non-numeric re sults) [facility] ([facility]) ID Date Data Source [id number] 03/21/2019 09:48:00 AM EST [facility] ([facility]) Name Value Range Interpretation Code Description Data Tisha rce(s) Supporting Document(s) Alt/SGPT 18 U/L 12-78 Normal (applies to non-numeric resul ts) [facility] ([facility]) Ast/Sgot 22 U/L 7-37 Normal (applies to non-numeric resul ts) [facility] ([facility]) Bilirubin,Total 0.4 mg/dL 0.2-1.0 Normal (applies to non-numeric results) [facility] ([facility]) Alkaline Phosphatase 218 U/L 45-117 Above high [facility] Bilirubin,Direct Laboratory test result 0.0-0.2 Normal ( applies to non-numeric results) [facility] ([facility]) Albumin 3.3 GM/DL 3.2-5.2 Normal (applies to non-numeric resul ts) [facility] ([facility]) Albumin/Globulin Ratio 0.75 1.00-1.93 Below low normal [facility] Total Protein 7.7 GM/DL 6.4-8.2 Normal (applies to non-numeric re sults) [facility] ([facility]) ID Date Data Source [id number] 03/21/2019 09:48:00 AM EST [facility] ([facility]) Name Value Range Interpretation Code Description Data Tisha rce(s) Supporting Document(s) White Blood Count 8.4 10 4.0-10.0 Normal (applies to non-numeri c results) [facility] ([facility]) Hemoglobin 15.7 g/dL 12.0-15.5 Above high normal [facility] ([facility]) Red Blood Count 5.37 10 4.00-5.40 Normal (applies to non-numeric results) [facility] ([facility]) Mean Corpuscular Volume 84.0 fl 80.0-96.0 Normal ( applies to non-numeric results) [facility] ([facility]) Mean Corpuscular Hemoglobin 29.2 pg 27.0-33.0 Norm al (applies to non-numeric results) [facility] ([facility]) Hematocrit 45.1 % 36.0-47.0 Normal (applies to non-numeric resul ts) [facility] ([facility]) Mean Corpuscular HGB Conc 34.8 g/dL 32.0-36.5 Normal (applies to non-numeric results) [facility] ([facility]) Platelet Count, Automated 307 10 150-450 Normal (applies to non-numeric results) [facility] ([facility]) Red Cell Distribution Width 13.1 % 11.5-14.5 Norm al (applies to non-numeric results) [facility] ([facility]) [place] % 4.3 % 0.0-5.0 Normal (applies to non-numeric resul ts) [facility] ([facility]) Lymph % 18.7 % 24.0-44.0 Below low normal [facility] ( [facility]) Neutrophils % 73.3 % 36.0-66.0 Above high normal [facility] ([facility]) Baso % 1.0 % 0.0-1.0 Normal (applies to non-numeric resul ts) [facility] ([facility]) Eos % 2.5 % 0.0-3.0 Normal (applies to non-numeric resul ts) [facility] ([facility]) Immature Granulocyte % 0.2 % 0-3.0 Normal (applies to non-n umeric results) [facility] ([facility]) Neutrophils # 6.2 10 1.5-8.5 Normal (applies to non-numeric re sults) [facility] ([facility]) Nucleated Red Blood Cell % 0.0 % 0-0 Normal (applies to n on-numeric results) [facility] ([facility]) Lymph # 1.6 10 1.5-5.0 Normal (applies to non-numeric resul ts) [facility] ([facility]) [place] # 0.4 10 0.0-0.8 Normal (applies to non-numeric resul ts) [facility] ([facility]) Eos # 0.2 10 0.0-0.5 Normal (applies to non-numeric resul ts) [facility] ([facility]) Baso # 0.1 10 0.0-0.2 Normal (applies to non-numeric resul ts) [facility] ([facility]) ID Date Data Source [id number] 03/21/2019 09:48:00 AM EST [facility] ([facility]) Name Value Range Interpretation Code Description Data Tisha rce(s) Supporting Document(s) Venous Partial Pressure Co2 47.9 mmHg 38.0-50.0 Norm al (applies to non-numeric results) [facility] ([facility]) Venous PH 7.339 units 7.330-7.430 Normal (applies to non-numeric res ults) [facility] ([facility]) Venous Partial Pressure O2 81.5 mmHg 30.0-50.0 Above high normal [facility] ([facility]) Venous Hco3 25.2 meq/L 23.0-27.0 Normal (applies to non-numeric resu lts) [facility] ([facility]) Venous Total Co2 26.7 meq/L 24.0-28.0 Normal (applies to non-numeric results) [facility] ([facility]) Venous Base Excess -1.2 Normal (applies to non-numer ic results) [facility] ([facility]) Venous O2 Saturation 95.2 % 60.0-80.0 Above high normal [facility] ([facility]) Venous Standard Hco3 23.4 meq/L Normal (applies to non-num denita results) [facility] ([facility]) Procedure Social History Code Duration Value Status Description Data Source(s ) Smoking 05/10/2020 12:00:00 AM EST Current Smoker completed Curre nt Smoker eCW1 ([facility]) Smoking 05/10/2020 12:00:00 AM EST Current Smoker completed Curre nt Smoker eCW1 ([facility]) 04/24/2020 12:00:00 AM EST Patient is a current smoker, smokes every day completed Patient is a current smoker, smokes every day [facility] ( [facility]) Alcohol intake 04/11/2020 12:00:00 AM EST No completed [facility] Cigarette pack-years 04/11/2020 12:00:00 AM EST UNK completed [facility] Cigarettes smoked current (pack per day) - Reported 04/11/20 12:00:00 AM EST UNK completed [facility] Smoking 04/11/2020 12:00:00 AM EST Current every day smoker co mpleted Current every day smoker [facility] Smoking 04/05/2020 12:00:00 AM EST Current Smoker completed Curre nt Smoker eCW1 ([facility]) Smoking 04/05/2020 12:00:00 AM EST Current Smoker completed Curre nt Smoker eCW1 ([facility]) Smoking 04/05/2020 12:00:00 AM EST Current Smoker completed Curre nt Smoker eCW1 ([facility]) Alcohol intake 04/01/2020 12:00:00 AM EST No completed [facility] Cigarette pack-years 04/01/2020 12:00:00 AM EST UNK completed [facility] Cigarettes smoked current (pack per day) - Reported 04/01/20 12:00:00 AM EST UNK completed [facility] Smoking 04/01/2020 12:00:00 AM EST Current every day smoker co mpleted Current every day smoker [facility] Smoking 03/28/2020 12:00:00 AM EST Current Smoker completed Curre nt Smoker eCW1 ([facility]) ETOH Use 03/21/2020 12:00:00 AM EST Denies alcohol use complete d Denies alcohol use [facility] ([facility]) Smoking 03/21/2020 12:00:00 AM EST Former Cigarette Smok er 1 Pack Daily completed Former Cigarette Smoker 1 Pack Daily [facility] ([facility]) Smoking 03/21/2020 12:00:00 AM EST Current Smoker completed Curre nt Smoker eCW1 ([facility]) Smoking 02/29/2020 12:00:00 AM EST Current Smoker completed Curre nt Smoker eCW1 ([facility]) Smoking 02/29/2020 12:00:00 AM EST Current Smoker completed Curre nt Smoker eCW1 ([facility]) Smoking 02/29/2020 12:00:00 AM EST Current Smoker completed Curre nt Smoker eCW1 ([facility]) Smoking 02/29/2020 12:00:00 AM EST Current Smoker completed Curre nt Smoker eCW1 ([facility]) Smoking 02/29/2020 12:00:00 AM EST Current Smoker completed Curre nt Smoker eCW1 ([facility]) Alcohol intake 02/13/2020 12:00:00 AM EDT No completed [facility] Cigarette pack-years 02/13/2020 12:00:00 AM EDT UNK completed [facility] Cigarettes smoked current (pack per day) - Reported 02/13/20 12:00:00 AM EDT UNK completed [facility] Smoking 02/13/2020 12:00:00 AM EDT Current every day smoker co mpleted Current every day smoker [facility] Alcohol intake 02/05/2020 12:00:00 AM EDT No completed [facility] Cigarette pack-years 02/05/2020 12:00:00 AM EDT UNK completed [facility] Cigarettes smoked current (pack per day) - Reported 02/05/20 20 12:00:00 AM EDT UNK completed [facility] Smoking 02/05/2020 12:00:00 AM EDT Current every day smoker co mpleted Current every day smoker [facility] Smoking 02/02/2020 12:00:00 AM EDT Current Smoker completed Curre nt Smoker eCW1 ([facility]) Smoking 02/02/2020 12:00:00 AM EDT Current Smoker completed Curre nt Smoker eCW1 ([facility]) Smoking 02/02/2020 12:00:00 AM EDT Current Smoker completed Curre nt Smoker eCW1 ([facility]) Smoking 02/02/2020 12:00:00 AM EDT Current Smoker completed Curre nt Smoker eCW1 ([facility]) Smoking 02/02/2020 12:00:00 AM EDT Current Smoker completed Curre nt Smoker eCW1 ([facility]) Smoking 02/02/2020 12:00:00 AM EDT Current Smoker completed Curre nt Smoker eCW1 ([facility]) Vital Signs ID Date Data Source UNK Name Value Range Interpretation Code Description Data Source(s) Diastolic blood pressure 56 mm[Hg] 56 mm[Hg] eCW1 ([facility]) Systolic blood pressure 108 mm[Hg] 108 mm[Hg] e CW1 ([facility]) Body temperature 97.8 [degF] 97.8 [degF] eCW1 ( [facility]) Respiratory rate 16 /min 16 /min eCW1 ([facility]) Heart rate 95 /min 95 /min eCW1 ([facility]) Body mass index (BMI) [Ratio] 29.18 kg/m2 29.18 kg/m2 W1 ([facility]) Body height 64 [in_i] 64 [in_i] eCW1 ([facility]) Body weight 170 [lb_av] 170 [lb_av] [facility] Diastolic blood pressure 60 mm[Hg] 60 mm[Hg] eCW1 ([facility]) Systolic blood pressure 130 mm[Hg] 130 mm[Hg] e CW1 ([facility]) Body temperature 96.9 [degF] 96.9 [degF] eCW1 ( [facility]) Heart rate 105 /min 105 /min eCW1 ([facility]) Body mass index (BMI) [Ratio] 29.18 kg/m2 29.18 kg/m2 eCW1 ([facility]) Body height 64 [in_i] 64 [in_i] eCW1 ([facility]) Body weight 170 [lb_av] 170 [lb_av] eCW[facility] Oxygen saturation in Arterial blood by Pulse oximetry 97 % 97 % [facility] Body mass index (BMI) [Ratio] 30.04 kg/m2 30.04 kg/m2 [facility] Body weight 79.379 kg 79.379 kg [facility] Body height 162.6 cm 162.6 cm [facility] Heart rate 88 /min 88 /min [facility] Diastolic blood pressure 58 mm[Hg] 58 mm[Hg] [facility] Systolic blood pressure 100 mm[Hg] 100 mm[Hg] [facility] Body mass index (BMI) [Ratio] [...] by Pulse oximetry 96 % 96 % [facility] Respiratory rate 18 /min 18 /min [facility] Body temperature 36.61 Simi 36.61 Simi [facility] Heart rate 71 /min 71 /min [facility] Diastolic blood pressure 81 mm[Hg] 81 mm[Hg] [facility] Systolic blood pressure 170 mm[Hg] 170 mm[Hg] [facility] Body mass index (BMI) [Ratio] 31.86 kg/m2 31.86 kg/m2 [facility] Body weight 84.188 kg 84.188 kg [facility] Body height 162.6 cm 162.6 cm [facility] Diastolic blood pressure 91 mm[Hg] 91 mm[Hg] eCW1 ([facility]) Systolic blood pressure 156 mm[Hg] 156 mm[Hg] e CW1 ([facility]) Body temperature 96 [degF] 96 [degF] eCW1 ([facility]) Respiratory rate 18 /min 18 /min eCW1 ([facility]) Heart rate 93 /min 93 /min eCW1 ([facility]) Body mass index (BMI) [Ratio] 29.18 kg/m2 29.18 kg/m2 W1 ([facility]) Body height 64 [in_i] 64 [in_i] eCW1 ([facility]) Body weight kg eCW1 ([facility]) Body weight 170 [lb_av] 170 [lb_av] eCW[facility] Oxygen saturation in Arterial blood by Pulse oximetry 97 % 97 % [facility] Body mass index (BMI) [Ratio] 30.38 kg/m2 30.38 kg/m2 [facility] Body weight 80.287 kg 80.287 kg [facility] Body height 162.6 cm 162.6 cm [facility] Heart rate 85 /min 85 /min [facility] Diastolic blood pressure 60 mm[Hg] 60 mm[Hg] [facility] Systolic blood pressure 100 mm[Hg] 100 mm[Hg] [facility] Diastolic blood pressure 58 mm[Hg] 58 mm[Hg] eCW1 ([facility]) Systolic blood pressure 118 mm[Hg] 118 mm[Hg] e CW1 ([facility]) Body temperature 97.9 [degF] 97.9 [degF] eCW1 ( [facility]) Respiratory rate 18 /min 18 /min eCW1 ([facility]) Heart rate 94 /min 94 /min eCW1 ([facility]) Body mass index (BMI) [Ratio] 29.18 kg/m2 29.18 kg/m2 eCW1 ([facility]) Body height 64 [in_i] 64 [in_i] eCW1 ([facility]) Body weight kg eCW1 ([facility]) Body weight 170 [lb_av] 170 [lb_av] eCW1 [facility] Body mass index (BMI) [Ratio] 29.2 kg/m2 [...] blood pressure 61 mm[Hg] 61 mm[Hg] eCW1 ([facility]) Systolic blood pressure 131 mm[Hg] 131 mm[Hg] e CW1 ([facility]) Body temperature 96.5 [degF] 96.5 [degF] eCW1 ( [facility]) Respiratory rate 20 /min 20 /min eCW1 ([facility]) Heart rate 94 /min 94 /min eCW1 ([facility]) Body mass index (BMI) [Ratio] 29.18 kg/m2 29.18 kg/m2 eCW1 ([facility]) Body height 64 [in_i] 64 [in_i] eCW1 ([facility]) Body weight kg eCW1 ([facility]) Body weight 170 [lb_av] 170 [lb_av] eCW1 [facility] Body mass index (BMI) [Ratio] 29.2 kg/m2 [...] temperature 95.6 [degF] 95.6 [degF] eCW1 ( [facility]) Respiratory rate 22 /min 22 /min eCW1 ([facility]) Heart rate 81 /min 81 /min eCW1 ([facility]) Body mass index (BMI) [Ratio] 29.18 kg/m2 29.18 kg/m2 eCW1 ([facility]) Body height 64 [in_i] 64 [in_i] eCW1 ([facility]) Body weight kg eCW1 ([facility]) Body weight 170 [lb_av] 170 [lb_av] eCW1 [facility] Oxygen saturation in Arterial blood by Pulse oximetry 95 % 95 % [facility] Respiratory rate 18 /min 18 /min [facility] Body temperature 37.06 Simi 37.06 Simi [facility] Heart rate 89 /min 89 /min [facility] Diastolic blood pressure 55 mm[Hg] 55 mm[Hg] [facility] Systolic blood pressure 114 mm[Hg] 114 mm[Hg] [facility] Body mass index (BMI) [Ratio] 28.84 kg/m2 28.84 kg/m2 [facility] Body weight 76.204 kg 76.204 kg [facility] Body height 162.6 cm 162.6 cm [facility] Heart rate 98 /min 98 /min [facility] Diastolic blood pressure 79 mm[Hg] 79 mm[Hg] [facility] Systolic blood pressure 157 mm[Hg] 157 mm[Hg] [facility] Oxygen saturation in Arterial blood by Pulse oximetry 97 % 97 % [facility] Respiratory rate 18 /min 18 /min [facility] Body temperature 36.61 Simi 36.61 Simi [facility] Body mass index (BMI) [Ratio] 30.86 kg/m2 30.86 kg/m2 [facility] Body weight 81.557 kg 81.557 kg [facility] Body height 162.6 cm 162.6 cm [facility] Diastolic blood pressure 77 mm[Hg] 77 mm[Hg] eCW1 ([facility]) Systolic blood pressure 133 mm[Hg] 133 mm[Hg] e CW1 ([facility]) Body temperature 96.0 [degF] 96.0 [degF] eCW1 ( [facility]) Respiratory rate 19 /min 19 /min eCW1 ([facility]) Heart rate 100 /min 100 /min eCW1 ([facility]) Body mass index (BMI) [Ratio] 27.46 kg/m2 27.46 kg/m2 W1 ([facility]) Body height 64 [in_i] 64 [in_i] eCW1 ([facility]) Body weight kg eCW1 ([facility]) Body weight 160 [lb_av] 160 [lb_av] [facility]CW[facility] Diastolic blood pressure 60 mm[Hg] 60 mm[Hg] eCW1 ([facility]) Systolic blood pressure 113 mm[Hg] 113 mm[Hg] e CW1 ([facility]) Body temperature 96.9 [degF] 96.9 [degF] eCW1 ( [facility]) Respiratory rate 20 /min 20 /min eCW1 ([facility]) Heart rate 99 /min 99 /min eCW1 ([facility]) Body mass index (BMI) [Ratio] 27.46 kg/m2 27.46 kg/m2 W1 ([facility]) Body height 64 [in_i] 64 [in_i] eCW1 ([facility]) Body weight kg eCW1 ([facility]) Body weight 160 [lb_av] 160 [lb_av] eCW1 [facility] Diastolic blood pressure 76 mm[Hg] 76 mm[Hg] eCW1 ([facility]) Systolic blood pressure 149 mm[Hg] 149 mm[Hg] e CW1 ([facility]) Body temperature 96.6 [degF] 96.6 [degF] eCW1 ( [facility]) Respiratory rate 20 /min 20 /min eCW1 ([facility]) Heart rate 93 /min 93 /min eCW1 ([facility]) Body mass index (BMI) [Ratio] 27.46 kg/m2 27.46 kg/m2 eCW1 ([facility]) Body height 64 [in_i] 64 [in_i] eCW1 ([facility]) Body weight 160 [lb_av] 160 [lb_av] eCW1 [facility] Oxygen saturation in Arterial blood by Pulse oximetry 96 % 96 % [facility] ([facility]) Body temperature 98.2 [degF] 98.2 [degF] [facility] ([facility]) Respiratory rate 20 /min 20 /min [facility] ( [facility]) Heart rate 100 /min 100 /min [facility] ([facility]) Body height 63.3 [in_i] 63.3 [in_i] [facility] ([facility]) 5'3.30" Diastolic blood pressure 78 mm[Hg] 78 mm[Hg] [facility] ([facility]) Systolic blood pressure 137 mm[Hg] 137 mm[Hg] M EDENT ([facility]) Heart rate 71 /min 71 /min [facility] ([facility] Diastolic blood pressure 38 mm[Hg] 38 mm[Hg] [facility] ([facility] Systolic blood pressure 70 mm[Hg] 70 mm[facility]Hg[facility] Body weight 160.00 [lb_av] 160.00 [lb_av] MED[facility] T ([facility] Body height 64 [in_i] 64 [in_i] [facility] ([facility] 5'4" Body mass index (BMI) [Ratio] 27.5 kg/m2 27.5 k g/m2 [facility] ([facility] Body weight 72.576 kg 72.576 kg [facility] ([facility], ) Body mass index (BMI) [Ratio] 27.5 kg/m2 27.5 k g/m2 [facility] ([facility], ) Body weight 160.00 [lb_av] 160.00 [lb_av] MEDEN T ([facility], ) Body height 64 [in_i] 64 [in_i] [facility] ([facility], ) 5'4" Oxygen saturation in Arterial blood by Pulse oximetry 97 % 97 % [facility] ([facility], ) Room Air Heart rate 100 /min 100 /min [facility] ([facility], ) Diastolic blood pressure 70 mm[Hg] 70 mm[Hg] [facility] ([facility]) Systolic blood pressure 118 mm[Hg] 118 mm[Hg] M [facility] ([facility]) Oxygen saturation in Arterial blood by Pulse oximetry 97 % 97 % [facility] ([facility]) Body temperature 99.0 [degF] 99.0 [degF] [facility] ([facility]) Respiratory rate 18 /min 18 /min [facility] ( [facility]) Heart rate 91 /min 91 /min [facility] ([facility]) Body mass index (BMI) [Ratio] 28.6 kg/m2 28.6 k g/m2 [facility] ([facility]) Body weight 163.12 [lb_av] 163.12 [lb_av] [facility] Body height 63.3 [in_i] 63.3 [in_i] [facility] ([facility]) 5'3.30" Body weight 73.937 kg 73.937 kg [facility] ([facility]) Body mass index (BMI) [Ratio] 28.0 kg/m2 28.0 k g/m2 [facility] ([facility]) Body weight 163.00 [lb_av] 163.00 [lb_av] [facility] Body height 64 [in_i] 66 [in_i] [facility] ([facility]) 5'4" Heart rate 98 /min 98 /min [facility] ([facility]) Diastolic blood pressure 67 mm[Hg] 67 mm[Hg] [facility] ([facility]) Systolic blood pressure 99 mm[Hg] 99 mm[Hg] [facility] Body weight 75.411 kg 75.411 kg [facility] ([facility]) Body mass index (BMI) [Ratio] 28.5 kg/m2 28.5 k g/m2 [facility] ([facility]) Body weight 166.25 [lb_av] 166.25 [lb_av] [facility] Body height 64 [in_i] 64 [in_i] [facility] ([facility]) 5'4" Diastolic blood pressure 64 mm[Hg] 64 mm[Hg] [facility] ([facility]) Systolic blood pressure 102 mm[Hg] 102 mm[Hg] M [facility] ([facility]) Body mass index (BMI) [Ratio] 29.6 kg/m2 29.6 k g/m2 [facility] ([facility]) Body weight 168.50 [lb_av] 168.50 [lb_av] [facility] [place] Body height 63.3 [in_i] 63.3 [in_i] [facility] ([facility]) 5'3.30" Diastolic blood pressure 64 mm[Hg] 64 mm[Hg] [facility] ([facility]) Systolic blood pressure 120 mm[Hg] 120 mm[Hg] [facility] ([facility]) Oxygen saturation in Arterial blood by Pulse oximetry 96 % 96 % [facility] ([facility]) Body temperature 97.4 [degF] 97.4 [degF] [facility] ([facility]) Respiratory rate 18 /min 18 /min [facility] ( [facility]) Heart rate 75 /min 75 /min [facility] ([facility]) Body weight 75.468 kg 75.468 kg [facility] ([facility]) Body mass index (BMI) [Ratio] 28.6 kg/m2 28.6 k g/m2 [facility] ([facility]) Body weight 166.38 [lb_av] 166.38 [lb_av] [facility] [place] Body height 64 [in_i] 64 [in_i] [facility] ([facility]) 5'4" Diastolic blood pressure 80 mm[Hg] 80 mm[Hg] [facility] ([facility]) Systolic blood pressure 112 mm[Hg] 112 mm[Hg] [facility] Body mass index (BMI) [Ratio] 28.3 kg/m2 28.3 k g/m2 [facility] Heart rate 98 /min 98 /min [facility] ([facility] Diastolic blood pressure 64 mm[Hg] 64 mm[Hg] [facility] ([facility] Systolic blood pressure 94 mm[Hg] 94 mm[Hg] M [facility] ([facility] Body weight 165.00 [lb_av] 165.00 [lb_av] [facility] ([facility] Body height 64 [in_i] 64 [in_i] [facility] ([facility] 5'4" Body weight 74.844 kg 74.844 kg [facility] ([facility]) Body mass index (BMI) [Ratio] 28.3 kg/m2 28.3 k g/m2 [facility] ([facility]) Body weight 165.00 [lb_av] 165.00 [lb_av] [facility] ([facility]) Body height 64 [in_i] 64 [in_i] [facility] ([facility]) 5'4" Diastolic blood pressure 82 mm[Hg] 82 mm[Hg] [facility] ([facility]) Systolic blood pressure 112 mm[Hg] 112 mm[Hg] M [facility] ([facility]) Body weight 74.844 kg 74.844 kg [facility] ([facility]) Body mass index (BMI) [Ratio] 28.3 kg/m2 28.3 k g/m2 [facility] ([facility]) Body weight 165.00 [lb_av] 165.00 [lb_av] [facility] ([facility]) Body height 64 [in_i] 64 [in_i] [facility] ([facility]) 5'4" Body temperature 96.7 [degF] 96.7 [degF] [facility] ([facility]) Diastolic blood pressure 62 mm[Hg] 62 mm[Hg] [facility] ([facility]) Systolic blood pressure 102 mm[Hg] 102 mm[Hg] [facility] ([facility]) Oxygen saturation in Arterial blood by Pulse oximetry 98 % 98 % [facility] ([facility]) Body temperature 99.2 [degF] 99.2 [degF] [facility] ([facility]) Respiratory rate 18 /min 18 /min [facility] ( [facility]) Heart rate 89 /min 89 /min [facility] ([facility]) Body mass index (BMI) [Ratio] 29.2 kg/m2 29.2 k g/m2 [facility] ([facility]) Body weight 166.50 [lb_av] 166.50 [lb_av] [facility] Body height 63.3 [in_i] 63.3 [in_i] [facility] ([facility]) 5'3.30" Diastolic blood pressure 62 mm[Hg] 62 mm[Hg] [facility] ([facility]) Systolic blood pressure 126 mm[Hg] 126 mm[Hg] [facility] ([facility]) Body weight 74.901 kg 74.901 kg [facility] ([facility]) Body mass index (BMI) [Ratio] 28.3 kg/m2 28.3 k g/m2 [facility] ([facility]) Body weight 165.12 [lb_av] 165.12 [lb_av] [facility] ([facility]) Body height 64 [in_i] 64 [in_i] [facility] ([facility]) 5'4" Body temperature 98.4 [degF] 98.4 [degF] [facility] ([facility]) Diastolic blood pressure 60 mm[Hg] 60 mm[Hg] [facility] ([facility]) Systolic blood pressure 110 mm[Hg] 110 mm[Hg] [facility] ([facility]) Oxygen saturation in Arterial blood by Pulse oximetry 94 % 94 % [facility] ([facility]) Body temperature 98.3 [degF] 98.3 [degF] [facility] ([facility]) Respiratory rate 20 /min 20 /min [facility] ( [facility]) Heart rate 84 /min 84 /min [facility] ([facility]) Body mass index (BMI) [Ratio] 31.5 kg/m2 31.5 k g/m2 [facility] ([facility]) Body weight 179.50 [lb_av] 179.50 [lb_av] [facility] ([facility]) Body height 63.3 [in_i] 63.3 [in_i] [facility] ([facility]) 5'3.30" Diastolic blood pressure 74 mm[Hg] 74 mm[Hg] [facility] ([facility]) Systolic blood pressure 132 mm[Hg] 132 mm[Hg] M [facility] ([facility]) Body weight 78.926 kg 78.926 kg [facility] ([facility]) Body mass index (BMI) [Ratio] 29.9 kg/m2 29.9 k g/m2 [facility] ([facility]) Body weight 174.00 [lb_av] 174.00 [lb_av] [facility] Body height 64 [in_i] 64 [in_i] [facility] ([facility]) 5'4" Diastolic blood pressure 52 mm[Hg] 52 mm[Hg] [facility] ([facility]) Systolic blood pressure 102 mm[Hg] 102 mm[Hg] [facility] ([facility]) Oxygen saturation in Arterial blood by Pulse oximetry 99 % 99 % [facility] ([facility]) Body temperature 98.8 [degF] 98.8 [degF] [facility] ([facility]) Respiratory rate 22 /min 22 /min [facility] ( [facility]) Heart rate 102 /min 102 /min [facility] ([facility]) Body mass index (BMI) [Ratio] 30.8 kg/m2 30.8 k g/m2 [facility] ([facility]) Body weight 175.38 [lb_av] 175.38 [lb_av] [facility] Body height 63.3 [in_i] 63.3 [in_i] [facility] ([facility]) 5'3.30" Diastolic blood pressure 86 mm[Hg] 86 mm[Hg] [facility] ([facility]) Systolic blood pressure 132 mm[Hg] 132 mm[Hg] [facility] Body weight 77.282 kg 77.282 kg [facility] ([facility], ) Body mass index (BMI) [Ratio] 29.2 kg/m2 29.2 k g/m2 [facility] ([facility]) Body weight 170.38 [lb_av] 170.38 [lb_av] [facility] ([facility], ) Body height 64 [in_i] 64 [in_i] [facility] ([facility], ) 5'4" Diastolic blood pressure 72 mm[Hg] 72 mm[Hg] [facility] ([facility]) Systolic blood pressure 102 mm[Hg] 102 mm[Hg] [facility] ([facility], ) Oxygen saturation in Arterial blood by Pulse oximetry 99 % 99 % [facility] ([facility]) Body temperature 98.6 [degF] 98.6 [degF] [facility] ([facility]) Respiratory rate 20 /min 20 /min [facility] ( [facility]) Heart rate 96 /min 96 /min [facility] ([facility]) Body mass index (BMI) [Ratio] 30.0 kg/m2 30.0 k g/m2 [facility] ([facility]) Body weight 171.12 [lb_av] 171.12 [lb_av] [facility] Body height 63.3 [in_i] 63.3 [in_i] [facility] ([facility]) 5'3.30" Diastolic blood pressure 62 mm[Hg] 62 mm[Hg] [facility] ([facility]) Systolic blood pressure 110 mm[Hg] 110 mm[Hg] Odalis SLADE ([facility]) Patient Treatment Plan of Care Planned Activity Planned Date Details Description Data Source (s) Protonix 40 MG 05/03/2020 12:00:00 AM [facility] ([facility]) Amoxicillin 875 MG / Clavulanate 125 MG Oral Tablet 04/25/19 21 12:00:00 AM [facility] Steglatro 15 MG 04/16/2020 12:00:00 AM [facility] ([facility]) Amoxicillin-Pot Clavulanate 875-125 MG 04/16/2020 12:00:00 AM [facility] ([facility]) Amoxicillin 875 MG / Clavulanate 125 MG Oral Tablet 04/15/20 20 12:00:00 AM [facility] Fluconazole 200 MG Oral Tablet 04/14/2020 12:00:00 AM [facility] Escitalopram Oxalate 20 MG 04/03/2020 12:00:00 AM [facility]) TRULICITY 4.5 MG/0.5ML SOPN 04/02/2020 12:00:00 AM [facility] Fluconazole 200 MG 04/01/2020 12:00:00 AM [facility] ([facility]) Escitalopram 20 MG Oral Tablet 04/01/2020 12:00:00 AM [facility] Acetaminophen 325 MG / Hydrocodone Bitartrate 5 MG Ora l Tablet 03/28/2020 12:00:[address] [facility] Acetaminophen 325 MG / Oxycodone Hydrochloride 5 MG Or al Tablet 03/21/2020 12:00:[address] [facility] Aspirin 325 MG Oral Tablet 03/15/2020 12:00:00 AM [facility] Bactrim DS 800-160 MG 03/02/2020 12:00:00 AM [facility] ([facility]) Pregabalin 200 MG 02/28/2020 12:00:00 AM [facility] ([facility]) pregabalin 200 MG Oral Capsule 02/27/2020 12:00:00 AM EST [facility] Atorvastatin Calcium 80 MG 02/23/2020 12:00:[address] [facility] ([facility]) Benadryl Allergy 25 MG 02/23/2020 12:00:[address] [facility] ([facility]) Acetaminophen 8 Hour 650 MG 02/23/2020 12:00:[address] [facility] ([facility]) MetroNIDAZOLE 250 MG 02/23/2020 12:00:[address] [facility] ([facility]) Ciprofloxacin HCl 250 MG 02/23/2020 12:00:[address] [facility] ([facility]) Metronidazole 250 MG Oral Tablet 02/20/2020 12:00:00 AM [facility] Ciprofloxacin 250 MG Oral Tablet 02/20/2020 12:00:00 AM [facility] DAILY CHE (THERAGRAN) per tablet 02/17/2020 12:00:00 AM EDT [facility] Meropenem 1 GM 02/16/2020 01:00:[address] [facility] ([facility]) Docusate Sodium 02/16/2020 01:00:[address] [facility] ([facility]) Clopidogrel Bisulfate 75 MG 02/16/2020 01:00:[address] [facility] ([facility]) Steglatro 15 MG 02/16/2020 01:00:[address] [facility] ([facility]) Pregabalin 150 MG 02/16/2020 01:00:[address] [facility] ([facility]) Pentoxifylline ER 400 MG 02/16/2020 01:00:[address] [facility] ([facility]) Ondansetron HCl 4 MG 02/16/2020 01:00:[address] [facility] ([facility]) Omeprazole 40 MG 02/16/2020 01:00:00 AM EDT [facility]) Heparin 02/16/2020 01:00:00 AM EDT [facility] ([facility]) Normal Saline Flush 0.9 % 02/16/2020 01:00:00 AM EDT [facility] ([facility]) Multivitamin 02/16/2020 01:00:00 AM EDT [facility] ([facility]) Bisacodyl Supp. 02/16/2020 01:00:00 AM EDT [facility] ([facility]) Oxycodone & Tylenol 02/16/2020 01:00:00 AM EDT [facility] ([facility]) Cyclobenzaprine 02/16/2020 01:00:00 AM EDT [facility] ([facility]) Escitalopram Oxalate 10 MG 02/16/2020 01:00:00 AM EDT [facility] ([facility]) Ferrous Sulfate 02/16/2020 01:00:00 AM EDT [facility] ([facility]) Lisinopril 5 MG 02/16/2020 01:00:00 AM EDT [facility] ([facility]) Loratadine 10 MG 02/16/2020 01:00:00 AM EDT [facility] ([facility]) Metoclopramide 02/16/2020 01:00:00 AM EDT [facility] ([facility]) Nystatin Powder 02/16/2020 01:00:00 AM EDT [facility] ([facility]) Tresiba FlexTouch 100 UNIT/ML 02/16/2020 01:00:00 AM EDT [facility] ([facility]) Trulicity 0.75 MG/0.5ML 02/16/2020 01:00:00 AM EDT [facility] ([facility]) Admelog SoloStar 100 UNIT/ML 02/16/2020 01:00:00 AM EDT [facility] ([facility]) Albuterol Sulfate HFA 108 (90 Base) MCG/ACT 02/16/2020 01:00:00 AM EDT [facility] ([facility]) Breo Ellipta 100-25 MCG/INH 02/16/2020 01:00:00 AM EDT [facility] ([facility]) Atorvastatin Calcium 80 MG 02/16/2020 01:00:00 AM EDT [facility] ([facility]) BuPROPion HBr ER 522 MG 02/16/2020 01:00:00 AM EDT [facility] ([facility]) Aspirin 02/16/2020 01:00:00 AM EDT [facility] ([facility]) MiraLax 17 GM 02/16/2020 01:00:00 AM EDT [facility] ([facility]) Sodium Chloride Flush (NORMAL SALINE FLUSH) 0.9 % SOLN injection 02/16/2020 12:00:00 AM EDT [facility] Bisacodyl 10 MG Rectal Suppository 02/16/2020 12:00:00 AM EDT [facility] POLYETHYLENE GLYCOL 3350 142 MG/ML Oral Solution 02/16/2020 12:00:0 0 AM EDT [facility] meropenem (MERREM) 1 g injection 02/16/2020 12:00:00 AM EDT [facility] Chlorhexidine Gluconate (BIOPATCH PROTECTIVE DISK/CHG) (Dressing) [facility] 02/16/2020 12:00:00 AM EDT [facility] 3 ML heparin sodium, porcine 100 UNT/ML Prefilled Syri nge 02/16/2020 12:00:00 AM EDT [facility] Aspirin 325 MG Oral Tablet 02/16/2020 12:00:00 AM EDT [facility] Acetaminophen 325 MG / Oxycodone Hydrochloride 5 MG Or al Tablet 02/16/2020 12:00:00 AM EDT [facility] meropenem 2 g in sodium chloride 0.9 % 100 mL IVPB 02/16/2020 12 :00:00 AM EDT [facility] meropenem (MERREM) 1 g injection 02/16/2020 12:00:00 AM EDT [facility] Chlorhexidine Gluconate (BIOPATCH PROTECTIVE DISK/CHG) (Dressing) MISC 02/16/2020 12:00:00 AM EDT [facility] Sodium Chloride Flush (NORMAL SALINE FLUSH) 0.9 % SOLN injection 02/16/2020 12:00:00 AM EDT [facility] 3 ML heparin sodium, porcine 100 UNT/ML Prefilled Syri nge 02/16/2020 12:00:00 AM EDT [facility] clopidogrel 75 MG Oral Tablet 07/26/2019 12:00:00 AM EDT [facility] Ondansetron 4 MG Oral Tablet 07/22/2019 12:00:00 AM EDT [facility] Metoclopramide 10 MG Oral Tablet 07/13/2019 12:00:00 AM EDT [facility] atorvastatin 80 MG Oral Tablet 06/15/2019 12:00:00 AM EST [facility] 0.5 ML dulaglutide 3 MG/ML Auto-Injector [Trulicity] 020 12:00:00 AM EST [facility] Lisinopril 5 MG Oral Tablet 05/26/2019 12:00:00 AM EST [facility] Mupirocin 0.02 MG/MG Topical Ointment 05/26/2019 12:00:00 AM EST [facility] TRESIBA FLEXTOUCH 200 UNIT/ML SOPN 04/05/2019 12:00:00 AM EST [facility] B-D ULTRAFINE III SHORT PEN 31G X 8 MM MISC 03/07/2019 12:00:00 AM EST [facility] Nystatin 100 UNT/MG Topical Powder 03/06/2019 12:00:00 AM EST [facility] Aspirin 325 MG Oral Tablet 03/06/2019 12:00:00 AM EST [facility] STEGLATRO 15 MG TABS 02/21/2019 12:00:00 AM EST [facility] 30 ACTUAT fluticasone furoate 0.2 MG/ACT UAT / vilanterol 0.025 MG/ACTUAT Dry Powder Inhaler [Breo] 02/16/2019 12:00:00 AM EDT [facility] pregabalin 150 MG Oral Capsule 01/16/2019 12:00:00 AM EDT [facility] ONE TOUCH ULTRA TEST test strip 12/21/2015 12:00:00 AM EDT [facility] B-D INS SYR ULTRAFINE 1CC/31G 31G X 09/01" 1 ML MISC 10/11/19 16 12:00:00 AM EDT [facility] Escitalopram 10 MG Oral Tablet [facility] Insulin Lispro 100 UNT/ML Injectable Solution [facility] Acetaminophen 325 MG / Hydrocodone Bitartrate 5 MG Oral Tablet [facility] duloxetine 60 MG Delayed Release Oral Capsule [facility]
--- NOTE | 2020-05-17 19:20 | REPVR ---
PROCEDURE INFORMATION: Exam: US Abdomen, Limited; Right Upper Quadrant Exam date and time: 05/17/2020 6:49 PM Age: 55 years old Clinical indication: Abdominal pain; Other: Epigastric; Additional info: Epigastric pain TECHNIQUE: Imaging protocol: US abdomen. Real time ultrasound with image documentation. Limited exam focused on the right upper quadrant. COMPARISON: Abdomen, limited US 03/11/2016 3:53 PM FINDINGS: Liver: The liver is generally increased in echotexture measuring 17.3 cm in craniocaudal span. Gallbladder: Partially contracted. No gallstones. There is no gallbladder wall thickening. Common bile duct: The common bile duct measures 0.44 cm. Pancreas: Pancreas is not seen due to bowel gas Right kidney: There is a lobulated contour to the right kidney. Hypoechoic lesion appearing cystic with internal septations noted in the midportion of the kidney and measuring 2.4 x 2.7 x 2.2 cm. No hydronephrosis in the visualized portion of the right kidney. The lower pole of the right kidney is not well seen due to bowel gas Portal venous: There is normal blood flow direction in the main portal vein. IMPRESSION: 1. Echogenic liver suggests underlying infiltrative disease such as fibrosis or fatty infiltration. 2. Complex septated cystic lesion in the mid right kidney not meeting ultrasound criteria for benign lesion. Follow-up evaluation with dedicated renal CT or MRI recommended Electronically signed by: Klaudia Rockwell On 05/17/2020 19:20:21 PM
[2020-05-17] MEDS ORDERED: NS 500 ML IV ONE (22:15)
[2020-05-17] MEDS ORDERED: HEPARIN DRIP 25,000 UNITS in IV 1 EA IV SCH (22:33)
[2020-05-17] MEDS ORDERED: HEPARIN SOD (PORCINE) 5000UNITS/ML 1ML VIAL/SYRINGE IV ONE (22:45)
[2020-05-17] MEDS ORDERED: TENECTEPLASE 50 MG KIT (TNKase) (J3101 PER 1MG) IV ONE (22:45)
[2020-05-17 23:31] VITALS: BP 144/77
--- NOTE | 2020-05-18 07:17 | ED PDOC ---
Post-Departure Follow-Up radiology report faxed tp Rena Garcia MD May 18, 2020 07:17
--- NOTE | 2020-05-18 09:30 | ECGEPIP ---
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
--- NOTE | 2020-05-18 09:34 | ECGEPIP ---
[facility] - ED Test Date: 2020-05-17 Pat Name: TATIANNA LAMB Department: Room: - Gender: Female Director Of Individual Giving: ASTRID : [id number] Requested By: Rj Figueroa Order Number: [id number] Reading MD: Rena Lopez Measurements Intervals [place] Rate: 94 P: 57 [place]: 170 QRS: 35 QRSD: 106 T: 86 QT: 383 QTc: 480 Interpretive Statements SINUS RHYTHM POSSIBLE LEFT ATRIAL ENLARGEMENT POSSIBLE ANTERIOR MYOCARDIAL INFARCTION, OF INDETERMINATE AGE MARKED ST ELEVATION, CONSIDER INFERIOR ACUTE HI, CLINICAL CORRELATION Electronically Signed on 05-18-2020 9:34:29 EST by Rena Lopez
== END 2020-05-17 23:47 | disposition short-term general hospital (02) ==
LOC: M ED 16:44
DX: I21.19 ST elevation (STEMI) myocardial infarction involving other coronary artery of inferior wall (principal); J44.9 Chronic obstructive pulmonary disease, unspecified; I10 Essential (primary) hypertension; E78.5 Hyperlipidemia, unspecified; I25.2 Old myocardial infarction; I73.9 Peripheral vascular disease, unspecified; Z79.899 Other long term (current) drug therapy; Z79.82 Long term (current) use of aspirin; Z79.4 Long term (current) use of insulin; Z79.01 Long term (current) use of anticoagulants; Z88.8 Allergy status to other drugs, medicaments and biological substances; Z91.018 Allergy to other foods; F17.210 Nicotine dependence, cigarettes, uncomplicated
CPT/HCPCS: 71045; 76705; 80047; 80076; 83690; 85025; 85610; 85730; 93005; 93041; 94760; 96361; 96374; 96375; 99285; J1644; J3101; U0002

== ENCOUNTER 2020-06-15 14:31 | Inpatient (IN) | payer OTHER ==
[~2020-06-15] VITALS: Ht 162.6 cm; Wt 89.8 kg
[~2020-06-15 14:31] MED LIST changes: -LISI-542 PO; +LISI-898 PO
[2020-06-15] MEDS ORDERED: CARV3.12 PO (14:40)
[2020-06-15] MEDS ORDERED: ASPI81CH33 PO (14:40)
[2020-06-15 15:11] LABS: BASO # 0.1 10^3/uL (0.0-0.2); BASO % 0.7 % (0.0-1.0); EOS # 0.2 10^3/uL (0.0-0.5); EOS % 1.5 % (0.0-3.0); HEMATOCRIT 46.8 % (36.0-47.0); HEMOGLOBIN 15.1 g/dl (12.0-15.5); LYMPH % 16.6 % (24.0-44.0); MEAN CORPUSCULAR HEMOGLOBIN 26.9 pg (27.0-33.0); MEAN CORPUSCULAR HGB CONC 32.3 g/dl (32.0-36.5); MEAN CORPUSCULAR VOLUME 83.3 fl (80.0-96.0); MONO # 0.7 10^3/uL (0.0-0.8); NEUTROPHILS # 9.2 10^3/uL (1.5-8.5); NEUTROPHILS % 74.6 % (36.0-66.0); PLATELET COUNT, AUTOMATED 291 10^3/uL (150-450); RED BLOOD COUNT 5.62 10^6/uL (4.00-5.40); WHITE BLOOD COUNT 12.3 10^3/uL (4.0-10.0)
[2020-06-15 15:41] LABS: ALT/SGPT 20 U/L (12-78); BILIRUBIN,DIRECT 0.1 MG/DL (0.0-0.2); BILIRUBIN,TOTAL 0.3 MG/DL (0.2-1.0); BLOOD UREA NITROGEN 28 MG/DL (7-18); CALCIUM LEVEL 9.1 MG/DL (8.5-10.1); CARBON DIOXIDE LEVEL 28 MEQ/L (21-32); CHLORIDE LEVEL 94 MEQ/L (98-107); CREATININE FOR GFR 1.26 MG/DL (0.55-1.30); GLOMERULAR FILTRATION RATE 47.3 (>51); GLUCOSE, FASTING 561 MG/DL (70-100); LIPASE 1301 U/L (73-393); POTASSIUM SERUM 4.4 MEQ/L (3.5-5.1); SODIUM LEVEL 129 MEQ/L (136-145); TOTAL PROTEIN 7.5 GM/DL (6.4-8.2)
[2020-06-15 16:09] LABS: VENOUS BASE EXCESS -2.7 (-2.0-2.0); VENOUS O2 SATURATION 77.9 % (60.0-80.0); VENOUS PARTIAL PRESSURE CO2 54.2 mmHg (38.0-50.0); VENOUS PARTIAL PRESSURE O2 41.6 mmHg (30.0-50.0); VENOUS PH 7.281 UNITS (7.330-7.430); VENOUS STANDARD HCO3 21.8 MEQ/L; VENOUS TOTAL CO2 26.6 MEQ/L (24.0-28.0)
[2020-06-15] MEDS ORDERED: NS 500 ML IV ONE (16:10)
[2020-06-15 16:17] LABS: OSMOLALITY SERUM 309 MOSM/KG (275-295)
[2020-06-15 16:19] LABS: HEMOGLOBIN A1c 10.4 %
[2020-06-15 16:20] LABS: ACETONE/KETONE 0.96 MG/DL (<2.81)
[2020-06-15] MEDS ORDERED: ISOVUE-370 76% 100ML VIAL As Ordered ONE (16:21)
[2020-06-15] MEDS ORDERED: METOCLOPRAMIDE INJ 10MG/2ML VIAL (J2765 PER 1) IV ONE (17:40)
[2020-06-15] MEDS ORDERED: MORPHINE 4 MG/ML 1ML VIAL/SYRINGE (J2270) IV ONE (17:40)
[2020-06-15] MEDS ORDERED: DULO1CAP6 PO (18:24)
[2020-06-15] MEDS ORDERED: PREG300C PO (18:24)
[2020-06-15] MEDS ORDERED: FARX1TAB3 PO (18:24)
[2020-06-15 18:29] LABS: RSV AMPLIFICATION NEGATIVE (NEGATIVE)
--- NOTE | 2020-06-15 19:20 | REPVR ---
PROCEDURE INFORMATION: Exam: CT Abdomen And Pelvis With Contrast Exam date and time: 06/15/2020 6:36 PM Age: 55 years old Clinical indication: Abdominal pain, elevated lipase, villegas + TECHNIQUE: Imaging protocol: Computed tomography of the abdomen and pelvis with contrast. Radiation optimization: All CT scans at this facility use at least one of these dose optimization techniques: automated exposure control; mA and/or kV adjustment per patient size (includes targeted exams where dose is matched to clinical indication); or iterative reconstruction. Contrast material: ISOVUE 370; Contrast volume: 100 ml; Contrast route: INTRAVENOUS (IV); COMPARISON: 1. CT ABD PELVIS W/O CONTRAST 01/27/2018 1:36 AM 2. GALLBLADDER US 05/17/2020 6:38:22 PM FINDINGS: Lungs: The imaged portions of the lung bases are clear. The lungs were not fully imaged. Heart: No cardiomegaly or pericardial effusion is noted. There are coronary artery calcifications. Liver: Unremarkable. No liver lesion is seen. The contour of the liver is smooth. No hepatomegaly is noted. Gallbladder and bile ducts: No calcified gallstones are noted. No gallbladder wall thickening, pericholecystic fluid, or pericholecystic inflammatory changes are identified. No dilation of the bile ducts is noted. No calcified stones are seen in the common bile duct. Pancreas: There is a 15 mm cystic lesion with a peripheral calcification in the head of the pancreas (image 56 of the axial series 201), which has developed since the prior CT abdomen and pelvis on 01/27/2018. No dilation of the main pancreatic duct is noted. There is minimal fat stranding around the head of the pancreas, which is compatible with acute pancreatitis. There is no evidence for pancreatic necrosis. Spleen: Normal. No splenomegaly is noted. Adrenal glands: There is a 1.7 cm left adrenal nodule and a 1.4 cm right adrenal nodule that are unchanged compared to the prior CT abdomen and pelvis on 01/27/2018 and for which further imaging follow-up is not recommended. Kidneys and ureters: There are subtle striated areas of low attenuation in the lower poles of both kidneys, which may represent pyelonephritis or renal infarcts. No stones are noted in the ureters and there is no hydronephrosis or hydroureter. There are calcifications in the renal sinuses bilaterally, which may represent atherosclerotic calcifications or nonobstructive renal calculi. There is a 2.6 cm simple benign-appearing cyst in the interpolar region of the right kidney and an 8 mm simple benign-appearing cyst in the lower pole of the left kidney, for which imaging follow-up is not recommended. Stomach and bowel: The stomach and small bowel are unremarkable. There is mild sigmoid diverticulosis without evidence for diverticulitis. There is no evidence for a bowel obstruction, colitis, pneumatosis intestinalis, intussusception, volvulus, or perforated viscus. Appendix: Normal. There is no evidence for appendicitis. Intraperitoneal space: No free air. No ascites. No abscess. Retroperitoneal space: No fluid collection. Vasculature: No abdominal aortic aneurysm is present. There are extensive atherosclerotic calcifications. There is an occlusion of the right proximal superficial femoral artery and an occluded stent in the right proximal superficial femoral artery that is bypassed by a right femoral bypass that was not fully imaged. There is also an occlusion of the right proximal profunda femoris artery. The femoral arteries were not fully imaged. There are patent stents in the common iliac arteries bilaterally. There is mild stenosis of the origin of the single right main renal artery. No stenosis or occlusion of the single left main renal artery is noted. There is mild stenosis of the proximal superior mesenteric artery and proximal inferior mesenteric artery. No significant stenosis or occlusion of the celiac artery is noted. The portal veins, splenic vein, superior mesenteric vein, inferior mesenteric vein, and renal veins are patent. Lymph nodes: No enlarged lymph nodes. Urinary bladder: The distended urinary bladder is normal in appearance. No stones or masses are seen in the bladder. Reproductive: The uterus is anteverted. The right ovary is unremarkable. The left ovary is not identified. Bones/joints: There is no fracture or dislocation. No suspicious osteolytic or osteoblastic lesion. There are degenerative changes involving the lower thoracic spine and lumbar spine. Soft tissues: There is a small fat containing periumbilical hernia located just above the umbilicus. There is scar tissue in the right inguinal region. No drainable soft tissue fluid collection is noted. IMPRESSION: 1. Acute pancreatitis. No evidence for pancreatic necrosis or an abscess. 2. 15 mm cystic lesion with a peripheral calcification in the head of the pancreas, which has developed since the prior CT abdomen and pelvis on 01/27/2018. Reimaging every 6 months for 2 years, then every 1 year for 2 years, then every 2 years for 6 years is recommended. Alternatively, endoscopic ultrasound with fine needle aspiration is recommended. (Reference: oDrinda, 2017) 3. Striated areas of low attenuation in the lower poles of both kidneys, which may represent pyelonephritis or renal infarcts. 4. Calcifications in the renal sinuses bilaterally, which may represent atherosclerotic calcifications or nonobstructive renal calculi. 5. Mild sigmoid diverticulosis without evidence for diverticulitis. 6. Small fat containing periumbilical hernia located just above the umbilicus. REFERENCES: Dorinda BROWER, et al. Management of Incidental Pancreatic Cysts: A White Paper of the ACR Incidental Findings Committee. J Am Liliane Radiol. 2017;14(7):911-923. Electronically signed by: Jonah Israel On 06/15/2020 19:21:14 PM
[2020-06-15] MEDS ORDERED: GLUCOSE 4GM CHEW TABLET PO PRN (19:35)
[2020-06-15] MEDS ORDERED: GLUCAGON INJ 1MG VIAL SC PRN (19:35)
[2020-06-15] MEDS ORDERED: ONDANSETRON 4MG/2ML VIAL IV PRN (20:00)
[2020-06-15] MEDS ORDERED: ACETAMINOPHEN TAB 650MG DOSE (2X325MG) PO PRN (20:00)
[2020-06-15] MEDS: HumaLOG INSULIN (NovoLOG) PER UNIT SC SCH (20:02)
[2020-06-15] MEDS ORDERED: ALBUTEROL 90 MCG/ACT 8GM HFA INHALER INH PRN (20:05)
--- NOTE | 2020-06-15 20:08 | HPEPDOC ---
[facility] Medical History & Physical Date of Admission Jun 15, 2020 Date of Service: Jun 15, 2020 Attending Physician: XOCHILT SYKES MD History and Physical CHIEF COMPLAINT: Abdominal pain HISTORY OF PRESENT ILLNESS: Patient is a 55-year-old female, past medical history significant for IDDM, CVD s/p CABG, hypertension, chronic respiratory failure, S/P tracheostomy, peripheral arterial disease, COPD, is admitted to the emergency department the afternoon of 06/15/20 reporting diffuse abdominal pain that began approximately 5 days ago. She reports that yesterday, 06/14/20, she began experiencing nausea and emesis. Denies any recent fever or chills, no history of urinary problems. States that she has been having regular bowel movements. Denies ETOH use. Upon presentation to the emergency department, patient was found to be afebrile pulse 97, respiratory rate of 18, blood pressure 142/72 maintaining a saturation of 96% on room air. CBC did demonstrate a mild leukocytosis of 12.3, H/H of 15.1/46.8. Hyponatremia with a sodium of 129 potassium 4.4, chloride of 94, anion gap of 7, BUN/creatinine of 28/1.26 with GFR 47.3. Glucose of 561, elevations of alkaline phosphatase 199, lipase 1301. B-HB 0.96. CT of the patient's abdomen and pelvis did confirm acute pancreatitis. Patient was treated with a 1/2liter bolus, 4 mg of IV morphine for her pain and metoclopramide. Hospitalist team was contacted to admit the patient for further management and observation of her acute pancreatitis. PAST MEDICAL HISTORY: IDDM, history of noncompliance COPD Progress toward failure, S/V tracheostomy HTN PVD s/p bypass Depression/Anxiety FRANCESCA, noncompliant with CPAP History of pancreatitis Fatty liver PAST SURGICAL HISTORY: Tracheostomy CABG, 2015 3 Salpingectomy and oophrectomy, 2008 Bladder suspension, 2011 Angioplasty, 07/06 Angioplasty of left leg, 02/05/20 Angioplasty of right leg, 02/12/20 Wire replacement in heart, 02/05 Lower extremity bypass, 02/05 SOCIAL HISTORY: Marital status: Single Resides in: A first-floor apartment in [place] Children: 3 children Employment: Disabled, used to work in [employer] at a [employer]. Tobacco use: Patient smokes approximately 1 PPD, down from 1.5, Pt has been smoking for over 30 years. ETOH: A adamantly denies any alcohol use. Illicit drug use: Has any illicit drug use including IV drugs and marijuana FAMILY HISTORY: Father: , emphysema Mother: , unknown Siblings: Healthy as far as patient is aware Children: 3 healthy children Denies know family history of colon, breast, prostate, pancreatic cancer ALLERGIES: Please see below. REVIEW OF SYSTEMS: CONSTITUTIONAL: Reports 2-3 day history of fatigue. Denies any recent fevers or chills, changes in weight or appetite, night sweats HEENT: Denies ZARATE, vision/hearing changes, mouth sores/lesions, difficulty swallowing CARDIOVASCULAR: Denies CP, palpitations, inappropriate tachycardia RESPIRATORY: Reports baseline dry cough, denies productive cough, wheezing, orthopnea PND GASTROINTESTINAL: Please see HPI, denies any constipation or diarrhea, no melena or hematochezia GENITOURINARY: Denies any dysuria, urinary frequency urgency or hesitancy no hematuria SKIN: She does have a diabetic ulcer on her left heel, following with wound care, denies any other skin lesions or new rashes, no bruising MUSCULOSKELETAL: Has any joint or muscle aches or pains NEUROLOGICAL: Denies any numbness or tingling, loss of consciousness or muscle weakness PSYCHIATRIC: Carries a history of depression and anxiety HOME MEDICATIONS: Please see below. PHYSICAL EXAMINATION: VITAL SIGNS: Please see below GENERAL APPEARANCE: She was interviewed and examined in the emergency department, she was found to be resting comfortably, flat on her stretcher. Patient was easily awoken. She seemed quite somnolent, was a fair medical assistant cardiology though she was able to actively participate in examination HEENT: Cephalic, atraumatic, EOMI, sclerae nonicteric, mucous membranes appear dry CARDIOVASCULAR: Regular rate and rhythm without any appreciable murmur, no appreciable JVD LUNGS: Fair air movement throughout, very faint scattered wheezing, no co nversational dyspnea ABDOMEN: Patient is tender to right sided abdomen palpation, nontender left side palpation, bowel sounds are present without, no appreciable bruits, nonrigid, soft, obese with no appreciable masses MUSCULOSKELETAL: She is able to move all of her extremities equally bilaterally. EXTREMITIES: No lower extremity swelling or edema. Patient does have a skin wound on her left heel, appropriately wrapped and bandaged NEUROLOGICAL: No neck or to appropriate, patient is somewhat somnolent level of arousal increase throat examination, dysarthria or dysphasia facial drooping PSYCHIATRIC: Mood and affect are appropriate LABORATORY DATA: See below. IMAGING: CT of abdomen and pelvis (06/15/20): Acute pancreatitis. No evidence of p ancreatic necrosis or an abscess. 15 mm cystic lesion with a peripheral calcification of the head of the pancreas which has developed since prior CT abdomen and pelvis on 01/27/2018. Reimaging every 6 months for 2 years than one year for 2 years than 2 years for 6 years is recommended. Currently, endoscopic ultrasound with FNA is recommended. Striated areas of low attenuation in the lower poles of both kidneys which may represent pyelonephritis or renal infarcts. Calcifications in the renal sinuses bilaterally which may some atherosclerotic calcifications are nonobstructive renal calculi. Mild sigmoid diverticulosis without diverticulitis. Small fat-containing periumbilical hernia located just above the umbilicus. MICROBIOLOGY: Please see below. ASSESSMENT: Patient is a 55-year-old female past medical history significant for insulin-d ependent diabetes mellitus this neuropathy and a diabetic foot wound, hypertension, COPD, peripheral arterial disease S/P bypass, CVD GERD and tobacco use presented to the emergency department the afternoon of 06/15/20 reporting a 5 day history of generalized abdominal pain and discomfort. Reports a 2 day history of emesis with nausea. Emergency department, patient's vitals were found to be stable, she was noted to be hyperglycemic though not in DKA, lipase of 1300 with radial graphic evidence of pancreatitis. She'll be admitted to the hospital for management of her hyperglycemia pancreatitis. PLAN: #Acute Pancreatitis -No CT evidence of necrotizing/abscess, [place] Criteria of 2. -A1c and lipid panel pending, Ca WNL, no evidence of gallstones, cholecystitis or cholangitis. Patient adamantly denies alcohol use. -Aggressive IV hydration, pain control, nausea control, monitoring of lytes -NPO diet except meds, advance diet as tolerated #Hyperglycemia -Patient reports that she did check her sugar this morning, average of 300 -No evidence of DKA, normal gap, neg B-HB -Glucose control reduces M&M, Glucose to 271 at time of admission. -FSBS and SSI Q4H #Pancreatic cystic lesion -Measuring 15 mm with peripheral calcification in the head of the pancreas, new since prior CT in 02/03. -Recommend serial reimaging, outpatient follow-up -Can consider discussing ultrasound with FNA #IDDM with neuropathy -History of noncompliance -Every 4 fingersticks and sliding scale as mentioned above -Once PO, long acting and SSI -Outpatient diabetic education #Left heel diabetic ulcer -Patient reports this has been healing well, was most see wound care this week but was unable secondary to feeling ill -Consider wound care consultation #PAD -ASA, Plavix, stain #Hypertensive heart disease -Normotensive -Carvediolol, Lisinopril #COPD -Oxygen titration -Albuterol #Active tobacco smoker -Cessation education #GERD -c/w PPI #Mood/Depression -Lexapro #FRANCESCA, noncompliant with CPAP -oxygen titration #Obesity Class I -Complicating care -Recommend outpatient follow-up for diet and lifestyle modifications DVT PROPHYLAXIS: Mechanical CODE STATUS: FULL CODE DISPO: Anticipate >2 night stay Vital Signs Vital Signs Date Time Temp Pulse Resp B/P (MAP) Pulse Ox O2 Delivery O2 Flow Rate FiO2 06/15/20 18:16 98.6 94 18 96 Room Air 06/15/20 18:15 152/75 (100) Laboratory Data Labs 24H Laboratory Tests 2 06/15/20 14:26: Estimated Mean Plasma Glucose 252H, Hemoglobin A1c 10.4 06/15/20 14:58: Immature Granulocyte % (Auto) 0.6, Neutrophils (%) (Auto) 74.6H, Lymphocytes (%) (Auto) 16.6L, Monocytes (%) (Auto) 6.0, Eosinophils (%) (Auto) 1.5, Basophils (%) (Auto) 0.7, Neutrophils # (Auto) 9.2H, Lymphocytes # (Auto) 2.0, Monocytes # (Auto) 0.7, Eosinophils # (Auto) 0.2, Basophils # (Auto) 0.1, Nucleated Red Blood Cells % (auto) 0.0, Blood Gas Bicarbonate Standard 21.8, Venous Blood pH 7.281L, Venous Blood Partial Pressure CO2 54.2H, Venous Blood Partial Pressure O2 41.6, Venous Blood Total Carbon Dioxide 26.6, Venous Blood HCO3 25.0, Venous Blood Oxygen Saturation 77.9, Venous Blood Base Excess -2.7L, Anion Gap 7L, Glomerular Filtration Rate 47.3L, Osmolality 309H, Calcium Level 9.1, Total Bilirubin 0.3, Direct Bilirubin 0.1, Aspartate Amino Transf (AST/SGOT) 13, Alanine Aminotransferase (ALT/SGPT) 20, Alkaline Phosphatase 199H, Total Protein 7.5, Albumin 3.0L, Albumin/Globulin Ratio 0.7L, Lipase 1301H, B-Hydroxybutyrate 0.96 06/15/20 17:40: Bedside Glucose (Misc Panel) 336H 06/15/20 17:41: Coronavirus (COVID-19)(PCR) NEGATIVE, Influenza Type A (RT-PCR) NEGATIVE, Influenza Type B (RT-PCR) NEGATIVE, Respiratory Syncytial Virus (PCR) NEGATIVE CBC/BMP Laboratory Tests 06/15/20 14:58 Home Medications Scheduled Aspirin (Aspirin) 81 Mg Tab.chew, 81 MG PO DAILY Atorvastatin Calcium (Atorvastatin Calcium) 80 Mg Tablet, 80 MG PO QHS Bupropion Hcl (Bupropion Xl) 150 Mg Tab.er.24h, 150 MG PO DAILY Carvedilol (Carvedilol) 3.125 Mg Tablet, 3.125 MG PO BID Clopidogrel Bisulfate (Plavix) 75 Mg Tablet, 75 MG PO DAILY Dapagliflozin Propanediol (Farxiga) 10 Mg Tablet, 10 MG PO DAILY Dulaglutide (Trulicity) 4.5 Mg/0.5 Ml Pen.injctr, 4.5 MG SQ 1XWK SUNDAYS Ertugliflozin Pidolate (Steglatro) 15 Mg Tablet, 15 MG PO QHS Escitalopram Oxalate (Lexapro) 20 Mg Tablet, 20 MG PO DAILY Ferrous Sulfate (Ferrous Sulfate) 325 Mg Tablet, 325 MG PO DAILY Insulin Degludec (Tresiba Flextouch U-200) 200 Unit/1 Ml Insuln.pen, 72 UNIT SC BID Lisinopril (Lisinopril) 5 Mg Tab, 5 MG PO DAILY Loratadine (Loratadine) 10 Mg Tab, 10 MG PO DAILY Metoclopramide HCl (Metoclopramide HCl) 10 Mg Tablet, 10 MG PO BIDWM Omeprazole (Omeprazole) 40 Mg Cap, 40 MG PO BID Pentoxifylline (Pentoxifylline) 400 Mg Tabcr, 400 MG PO TID Pregabalin (Pregabalin) 300 Mg Capsule, 300 MG PO BID Scheduled PRN Albuterol Sulfate (Ventolin Hfa) 108 Mcg/Act Aer, 2 PUFF INH Q4H PRN for SHORTNESS OF BREATH Cyclobenzaprine HCl (Cyclobenzaprine HCl) 5 Mg Tab, 5 MG PO QHS PRN for MUSCLE SPASMS Allergies Coded Allergies: insulin glargine (Verified Allergy, Intermediate, Basalin: severe itching for 8 months while on it, 05/08/20) Grapefruit (Verified Allergy, Unknown, 05/08/20) varenicline (Verified Adverse Reaction, Intermediate, DEPRESSION, 05/08/20) canagliflozin (Verified Adverse Reaction, Mild, yeast infection, 05/08/20) A-FIB/CHADSVASC A-FIB History Current/History of A-Fib/PAF?: No Current PO Anticoag Therapy: No GME ATTESTATION GME ATTESTATION My faculty preceptor for this patient encounter was physically present during the encounter and was fully available. All aspects of the patient interview, examination, medical decision making process, and medical care plan development were reviewed and approved by the faculty preceptor. The faculty preceptor is aware and concurs with the plan as stated in the body of this note and will attest to such by his/her cosignature. ATTENDING NOTE TIME OF SERVICE 838PM is a 55 yr old w a hx of HTN, IDDM w neuropathy, DLP, CAD/CABG, COPD and class 1 obesity who will be admitted for management of acute pancreatitis (based on the [place] Criteria); CT confirmed the diagnosis of acute pancrea titis, identified a 1.5cm cystic lesion at the head of the pancrease, while the gall bladder and ducts were unremarkable. Her serum calcium was wnl. The differential for the cause of her acute pancreatitis includes hyperlipidemia, ethanol, recreational drugs, malignancy, Lisinopril or vasculitis. Plan: NPO / IVF / toraldol and morphine for pain / f/u ETHO, UDS and lipid panel / if the work-up is unrevealing the day time team may consider discussing the case with GI to see if the patient should receive additional imaging such as MRCP or EUS Rest per H&P LATE ENTRY 627 #Hypoglycemia Likely due to delayed effect of Tresiba Plan: because the patient was hyperglycemic with a glucose > 500 when she arrived we will not switch to D5 / we will move her to PCU for accuchecks Q2H & c/w with dextrose pushes as needed EVAN TOWNSEND DO Jun 15, 2020 20:07 XOCHILT SYKES MD Jun 15, 2020 21:36
[2020-06-15] MEDS: NS 1,000 ML IV SCH (20:37)
[2020-06-15] MEDS ORDERED: MORPHINE 2 MG/ML 1ML VIAL (J2270) IV PRN ×2 (20:50→21:25)
[2020-06-15] MEDS ORDERED: ATORVASTATIN 20 MG TAB PO SCH (21:00)
[2020-06-15] MEDS ORDERED: KETOROLAC TROMETHAMINE 10 MG TAB PO PRN (21:25)
[2020-06-15 22:26] LABS: CHOLESTEROL LEVEL 193 MG/DL (<200); CHOLESTEROL RISK RATIO 5.514 (<5); ETHYL ALCOHOL (ETHANOL) < 0.003 % (0.000-0.010); HDL CHOLESTEROL 35 MG/DL (>40); LDH LACTATE DEHYDROGENASE 206 U/L (84-246); NON-HDL-C 158 MG/DL; TRIGLYCERIDES LEVEL 465 MG/DL (<150)
[2020-06-15 22:36] VITALS: BP 124/64
[2020-06-15] MEDS: OMEPRAZOLE 20 MG CAP PO SCH (23:26)
[2020-06-15] MEDS: CARVedilol 3.125 MG TAB PO SCH (23:26)
[2020-06-15 23:36] LABS: BLOOD UREA NITROGEN 27 MG/DL (7-18); CALCIUM LEVEL 8.7 MG/DL (8.5-10.1); CARBON DIOXIDE LEVEL 30 MEQ/L (21-32); CHLORIDE LEVEL 105 MEQ/L (98-107); GLOMERULAR FILTRATION RATE > 60.0 (>51); GLUCOSE, FASTING 74 MG/DL (70-100); MAGNESIUM LEVEL 2.3 MG/DL (1.8-2.4); SODIUM LEVEL 139 MEQ/L (136-145)
[2020-06-16] MEDS: DEXTROSE 50% 50 ML SYRINGE IV PRN ×3 (00:18→06:30)
[2020-06-16] MEDS: NS 1,000 ML IV SCH ×2 (01:18→06:00)
[2020-06-16] MEDS: HumaLOG INSULIN (NovoLOG) PER UNIT SC SCH ×2 (04:00)
[2020-06-16 06:00] VITALS: BP 104/65
[2020-06-16 07:03] LABS: HEMATOCRIT 45.7 % (36.0-47.0); HEMOGLOBIN 14.2 g/dl (12.0-15.5); MEAN CORPUSCULAR HEMOGLOBIN 26.4 pg (27.0-33.0); MEAN CORPUSCULAR HGB CONC 31.1 g/dl (32.0-36.5); MEAN CORPUSCULAR VOLUME 84.9 fl (80.0-96.0); PLATELET COUNT, AUTOMATED 226 10^3/uL (150-450); RED BLOOD COUNT 5.38 10^6/uL (4.00-5.40); WHITE BLOOD COUNT 13.7 10^3/uL (4.0-10.0)
[2020-06-16 07:32] LABS: ALBUMIN 2.6 GM/DL (3.2-5.2); ALT/SGPT 13 U/L (12-78); BILIRUBIN,TOTAL 0.2 MG/DL (0.2-1.0); BLOOD UREA NITROGEN 27 MG/DL (7-18); CALCIUM LEVEL 8.5 MG/DL (8.5-10.1); CARBON DIOXIDE LEVEL 28 MEQ/L (21-32); CHLORIDE LEVEL 109 MEQ/L (98-107); CREATININE FOR GFR 0.78 MG/DL (0.55-1.30); GLOMERULAR FILTRATION RATE > 60.0 (>51); GLUCOSE, FASTING 132 MG/DL (70-100); POTASSIUM SERUM 3.6 MEQ/L (3.5-5.1); SODIUM LEVEL 141 MEQ/L (136-145); TRIGLYCERIDES LEVEL 188 MG/DL (<150)
[2020-06-16] MEDS ORDERED: MORPHINE 2 MG/ML 1ML VIAL (J2270) IV PRN (08:10)
[2020-06-16] MEDS: OMEPRAZOLE 20 MG CAP PO SCH (08:59)
[2020-06-16 09:00] VITALS: BP 143/78
[2020-06-16] MEDS ORDERED: ENOXAPARIN 40MG/0.4ML SYRINGE (J1650 PER 10MG) SC SCH (09:00)
[2020-06-16] MEDS ORDERED: ESCITALOPRAM OXALATE 10 MG TAB (LEXAPRO) PO SCH (09:00)
[2020-06-16] MEDS: CARVedilol 3.125 MG TAB PO SCH (09:00)
[2020-06-16] MEDS ORDERED: ASPIRIN 81 MG CHEW TABLET PO SCH (09:00)
[2020-06-16] MEDS ORDERED: D5W/0.9% SODIUM CHLORIDE 1,000 ML IV SCH (09:00)
[2020-06-16] MEDS ORDERED: lisinopriL 5 MG TAB PO SCH (09:00)
[2020-06-16] MEDS ORDERED: CLOPIDOGREL 75 MG TAB PO SCH (09:00)
[2020-06-16] MEDS ORDERED: HumaLOG INSULIN (NovoLOG) PER UNIT SC SCH (12:00)
--- NOTE | 2020-06-16 12:33 | IPNPDOC ---
Date Seen The patient was seen on 06/16/20. Progress Note SUBJECTIVE: Hypoglycemic overnight, received total of 3 amps. Started on D5W 0.9 NSS IVF, watch BS closely with FS Q4H, stop ISS for now until BS > 200 x 2. Denies abdominal pain, advanced to CLD today. Denies chest pain, shortness of breath, n/v/d. OBJECTIVE: PHYSICAL EXAMINATION: VITAL SIGNS: Please see below GENERAL APPEARANCE: NAD, resting in bed. AAOx3 HEENT:AT/NC, EOMI, moist mucous membranes CARDIOVASCULAR: Regular rate and rhythm, S1S2 +, No M/R/G LUNGS: CTAB, no W/R/R ABDOMEN: nontender, obese abd, bowel sounds are present, no appreciable bruits, nonrigid, soft, no masses BACK: No CVA tenderness MUSCULOSKELETAL: She is able to move all of her extremities equally bilaterally. EXTREMITIES: No lower extremity swelling or edema. Patient does have a skin wound on her left heel, appropriately wrapped and bandaged NEUROLOGICAL: CN 2-12 intact, no focal deficits PSYCHIATRIC: Mood and affect are appropriate LABORATORY DATA: See below. IMAGING: CT of abdomen and pelvis (06/15/20): Acute pancreatitis. No evidence of pancreatic necrosis or an abscess. 15 mm cystic lesion with a peripheral calcification of the head of the pancreas which has developed since prior CT abdomen and pelvis on 01/27/2018. Reimaging every 6 months for 2 years than one year for 2 years than 2 years for 6 years is recommended. Currently, endoscopic ultrasound with FNA is recommended. Striated areas of low attenuation in the lower poles of both kidneys which may represent pyelonephritis or renal infarcts. Calcifications in the renal sinuses bilaterally which may some atherosclerotic calcifications are nonobstructive renal calculi. Mild sigmoid diverticulosis without diverticulitis. Small fat- containing periumbilical hernia located just above the umbilicus. MICROBIOLOGY: UA neg ASSESSMENT: Patient is a 55-year-old female past medical history significant for insulin- dependent diabetes mellitus this neuropathy and a diabetic foot wound, hypertension, COPD, peripheral arterial disease S/P bypass, CVD GERD and tobacco use presented to the emergency department the afternoon of 06/15/20 reporting a 5 day history of generalized abdominal pain and discomfort. Reports a 2 day hist ory of emesis with nausea. Emergency department, patient's vitals were found to be stable, she was noted to be hyperglycemic though not in DKA, lipase of 1300 with radial graphic evidence of pancreatitis. She'll be admitted to the hospital for management of her hyperglycemia pancreatitis. PLAN: Acute Pancreatitis -Denies abdominal pain on exam, WBC 13K, afebrile -Hx of pancreatitis in the past -TG minimally elevated -Started on CLD, c/w IV hydration, pain control, nausea control, monitoring of lytes Hypoglycemia likely 2/2 to decreased appetite, insulin administration -Hx of DM type II, normally uncontrolled due to noncompliance, HbA1c 10.4 -BS 62, given several amps to improve to 120 this AM -C/w D5W0.9 NSS IVFs at 100 cc/hr until two BS >200 -CLD and will advance as tolerated -FS Q4h, holding ISS for now Pancreatic cystic lesion -Measuring 15 mm with peripheral calcification in the head of the pancreas, new since prior CT in 02/03. -Recommend serial re-imaging, outpatient follow-up -Can consider discussing ultrasound with FNA Left heel diabetic ulcer -Patient reports this has been healing well -Consider wound care consultation PAD -ASA, Plavix, stain Hypertensive heart disease -Normotensive -Carvediolol, Lisinopril COPD -Oxygen titration -Albuterol Active tobacco smoker -Cessation education GERD -c/w PPI Mood/Depression -Lexapro FRANCESCA, noncompliant with CPAP -oxygen titration Obesity Class I -Complicating care -Recommend outpatient follow-up for diet and lifestyle modifications DVT Px: - Lovenox DISPOSITION: Plan is discharge home when medically improved. VS, I&O, 24H, Fishbone Vital Signs/I&O Vital Signs Date Time Temp Pulse Resp B/P (MAP) Pulse Ox O2 Delivery O2 Flow Rate FiO2 06/16/20 09:16 16 06/16/20 09:00 143/78 06/16/20 09:00 77 06/16/20 06:00 97.7 96 Room Air I&O- Last 24 Hours up to 6 AM 06/16/20 06:00 Intake Total 2950 ml Output Total 1000 ml Balance 1950 ml Laboratory Data 24H LABS Laboratory Tests 2 06/15/20 14:26: Estimated Mean Plasma Glucose 252H, Hemoglobin A1c 10.4 06/15/20 14:58: Immature Granulocyte % (Auto) 0.6, Neutrophils (%) (Auto) 74.6H, Lymphocytes (%) (Auto) 16.6L, Monocytes (%) (Auto) 6.0, Eosinophils (%) (Auto) 1.5, Basophils (%) (Auto) 0.7, Neutrophils # (Auto) 9.2H, Lymphocytes # (Auto) 2.0, Monocytes # (Auto) 0.7, Eosinophils # (Auto) 0.2, Basophils # (Auto) 0.1, Nucleated Red Blood Cells % (auto) 0.0, Blood Gas Bicarbonate Standard 21.8, Venous Blood pH 7.281L, Venous Blood Partial Pressure CO2 54.2H, Venous Blood Partial Pressure O2 41.6, Venous Blood Total Carbon Dioxide 26.6, Venous Blood HCO3 25.0, Venous Blood Oxygen Saturation 77.9, Venous Blood Base Excess -2.7L, Anion Gap 7L, Glom erular Filtration Rate 47.3L, Osmolality 309H, Calcium Level 9.1, Total Bilirubin 0.3, Direct Bilirubin 0.1, Aspartate Amino Transf (AST/SGOT) 13, Alanine Aminotransferase (ALT/SGPT) 20, Alkaline Phosphatase 199H, Lactate Dehydrogenase 206, Total Protein 7.5, Albumin 3.0L, Albumin/Globulin Ratio 0.7L, Triglycerides Level 465H, Total Cholesterol 193, LDL Cholesterol , Non-HDL Cholesterol (LDL + VLDL) 158, Total HDL Cholesterol 35L, Cholesterol/HDL Ratio 5.514H, Lipase 1301H, Ethyl Alcohol Level < 0.003, B-Hydroxybutyrate 0.96 06/15/20 17:40: Bedside Glucose (Misc Panel) 336H 06/15/20 17:41: Coronavirus (COVID-19)(PCR) NEGATIVE, Influenza Type A (RT-PCR) NEGATIVE, Influenza Type B (RT-PCR) NEGATIVE, Respiratory Syncytial Virus (PCR) NEGATIVE 06/15/20 19:53: Bedside Glucose (Misc Panel) 271H 06/15/20 22:59: Anion Gap 4L, Glomerular Filtration Rate > 60.0, Calcium Level 8.7, Magnesium Level 2.3 06/16/20 00:07: Bedside Glucose (Misc Panel) 55L 06/16/20 00:37: Bedside Glucose (Misc Panel) 103 06/16/20 04:52: Bedside Glucose (Misc Panel) 44L 06/16/20 05:22: Bedside Glucose (Misc Panel) 102 06/16/20 06:18: Bedside Glucose (Misc Panel) 62L 06/16/20 06:36: Nucleated Red Blood Cells % (auto) 0.0, Anion Gap 4L, Glomerular Filtration Rate > 60.0, Calcium Level 8.5, Total Bilirubin 0.2, Aspartate Amino Transf (AST/SGOT) 8, Alanine Aminotransferase (ALT/SGPT) 13, Alkaline Phosphatase 150H, Total Protein 6.0L, Albumin 2.6L, Albumin/Globulin Ratio 0.8L, Triglycerides Level 188H 06/16/20 06:51: Bedside Glucose (Misc Panel) 122H 06/16/20 07:55: Bedside Glucose (Misc Panel) 76 06/16/20 11:10: Urine Color YELLOW, Urine Appearance CLEAR, Urine pH 5.0, Urine Specific [place] 1.026, Urine Protein NEGATIVE, Urine Glucose (UA) 3+H, Urine Ketones NEGATIVE, Urine Blood NEGATIVE, Urine Nitrite NEGATIVE, Urine Bilirubin NEGATIVE, Urine Urobilinogen 0.2, Urine Leukocyte Esterase TRACEH, Urine WBC (Auto) 5H, Urine RBC (Auto) 1, Urine Hyaline Casts (Auto) 0, Urine Bacteria (Auto) NEGATIVE, Urine Squamous Epithelial Cells 1, Urine Mucus (Auto) SMALL, Urine Sperm (Auto) 06/16/20 11:42: Bedside Glucose (Misc Panel) 120H CBC/BMP Laboratory Tests 06/15/20 14:58 06/15/20 22:59 06/16/20 06:36 Microbiology Microbiology 06/16/20 Urine Culture, Received Pending Current Medications Current Medications Medications (Trade) Dose Ordered Sig/Cathi Route PRN Reason Start Time Stop Time Status Last Admin Dose Admin Acetaminophen (Tylenol Tab) 650 mg Q4HP PRN PO TEMP > 101 06/15/20 20:00 Albuterol Sulfate (Proventil, Ventolin Hfa) 2 puff Q4H PRN INH SHORTNESS OF BREATH 06/15/20 20:05 Aspirin (Aspirin Chewable) 81 mg DAILY PO 06/16/20 09:00 06/16/20 08:59 Atorvastatin Calcium (Lipitor) 80 mg QHS PO 06/15/20 21:00 06/15/20 23:27 Carvedilol (COReg) 3.125 mg BID PO 06/15/20 21:00 06/16/20 09:00 Clopidogrel Bisulfate (PLAVix) 75 mg DAILY PO 06/16/20 09:00 06/16/20 08:59 Dextrose (Dextrose 50%) 25 ml ASDIRECTED PRN IV SEE LABEL COMMENTS 06/15/20 19:35 06/16/20 06:30 Dextrose/Sodium Chloride 1,000 ml @ 125 mls/hr Q8H IV 06/16/20 09:00 06/16/20 08:56 Escitalopram Oxalate (Lexapro) 20 mg DAILY PO 06/16/20 09:00 06/16/20 08:59 Glucagon (Glucagon) 1 mg ASDIRECTED PRN SC SEE LABEL COMMENTS 06/15/20 19:35 Glucose (Glucose) 16 GM ASDIRECTED PRN PO SEE LABEL COMMENTS 06/15/20 19:35 Home Med (Med Rec Complete!) ASDIRECTED XX 06/15/20 18:35 06/15/20 18:43 DC Insulin Human Lispro (HumaLOG INSULIN) SEE PROTOCOL TABLE Q6H SC 06/16/20 12:00 Insulin Human Lispro (HumaLOG INSULIN) See Protocol Table Q4H SC 06/15/20 20:00 06/16/20 07:56 DC 06/15/20 20:02 Ketorolac Tromethamine (ToRADol) 10 mg Q6HP PRN PO PAIN 1-4 in severity 06/15/20 21:25 06/20/20 21:24 Lisinopril (Prinivil) 5 mg DAILY PO 06/16/20 09:00 06/16/20 09:00 Morphine Sulfate (Morphine Sulfate Inj) 1 mg Q6HP PRN IV MODERATE/SEVERE PAIN (PS 5-10) 06/16/20 08:10 06/16/20 09:06 Morphine Sulfate (Morphine Sulfate Inj) 2 mg Q2HP PRN IV pain 7-10 06/15/20 21:25 06/16/20 08:12 DC 06/15/20 23:17 Morphine Sulfate (Morphine Sulfate Inj) 2 mg Q4HP PRN IV pain 7-10 06/15/20 20:50 06/15/20 21:38 DC Omeprazole (PriLOSEC) 40 mg BID PO 06/15/20 21:00 06/16/20 08:59 Ondansetron HCl (ZOFRAN INJection) 4 mg Q6HP PRN IV NAUSEA OR VOMITING 06/15/20 20:00 Sodium Chloride 1,000 ml @ 150 mls/hr Q6H40M IV 06/15/20 20:00 06/16/20 08:09 DC 06/16/20 06:00 Allergies Coded Allergies: insulin glargine (Verified Allergy, Intermediate, Basalin: severe itching for 8 months while on it, 05/08/20) Grapefruit (Verified Allergy, Unknown, 05/08/20) varenicline (Verified Adverse Reaction, Intermediate, DEPRESSION, 05/08/20) canagliflozin (Verified Adverse Reaction, Mild, yeast infection, 05/08/20) Netta Lofton MD Jun 16, 2020 12:33
[2020-06-16 14:00] VITALS: BP 143/75
--- NOTE | 2020-06-16 15:58 | DS.PDOC ---
Discharge Summary General Date of Admission Jun 15, 2020 at 19:33 Date of Discharge 06/16/20 Attending Physician: Netta Lofton MD Discharge Summary THIS IS A DISCHARGE SUMMARY, PATIENT LEFT AMA HISTORY OF PRESENT ILLNESS: Patient is a 55-year-old female, past medical history significant for IDDM, CVD s/p CABG, hypertension, chronic respiratory failure, S/P tracheostomy, periph eral arterial disease, COPD, is admitted to the emergency department the afternoon of 06/15/20 reporting diffuse abdominal pain that began approximately 5 days ago. She reports that yesterday, 06/14/20, she began experiencing nausea and emesis. Denies any recent fever or chills, no history of urinary problems. States that she has been having regular bowel movements. Denies ETOH use. Upon presentation to the emergency department, patient was found to be afebrile pulse 97, respiratory rate of 18, blood pressure 142/72 maintaining a saturation of 96% on room air. CBC did demonstrate a mild leukocytosis of 12.3, H/H of 15.1/46.8. Hyponatremia with a sodium of 129 potassium 4.4, chloride of 94, anion gap of 7, BUN/creatinine of 28/1.26 with GFR 47.3. Glucose of 561, elevations of alkaline phosphatase 199, lipase 1301. B-HB 0.96. CT of the patient's abdomen and pelvis did confirm acute pancreatitis. Patient was treated with a 1/2liter bolus, 4 mg of IV morphine for her pain and metoclopramide. Hospitalist team was contacted to admit the patient for further management and observation of her acute pancreatitis. HOSPITAL COURSE: The patient was kept NPO, on ISS with FS checks. She dropped her BS into low 60's overnight, became symptomatic. NEeded several amps of D50 to increase BS. Early AM on 06/16/20 she was placed on D 5W with 0.9 NSS to help sustain BS. Her diet was advanced due to decreased abdominal pain intially to CLD and later soft consistent carbohydrate while still on D5 IVFs. She required minimal pain control, TG were minimally elevated. Plan was to see how she tolerated diet today, try to wean off D5W while waiting for FS to stay up on their own and then, once on consistent carb diet of normal consistency, discharge home. Patient refused and insisted to leave today. With still being on D5W and FS not being high enough on consecutive readings, this was advised against. Risk of her going hypoglycemic again if taken off too soon was discussed. She refused to sta y. Early afternoon on 06/16/20 she left AMA. PAST MEDICAL HISTORY: IDDM, history of noncompliance COPD Progress toward failure, S/V tracheostomy HTN PVD s/p bypass Depression/Anxiety FRANCESCA, noncompliant with CPAP History of pancreatitis Fatty liver PAST SURGICAL HISTORY: Tracheostomy CABG, 2015 3 Salpingectomy and oophrectomy, 2008 Bladder suspension, 2011 Angioplasty, 07/06 Angioplasty of left leg, 02/05/20 Angioplasty of right leg, 02/12/20 Wire replacement in heart, 02/05 Lower extremity bypass, 02/05 SOCIAL HISTORY: Marital status: Single Resides in: A first-floor apartment in [place] Children: 3 children Employment: Disabled, used to work in [employer] at a [employer]. Tobacco use: Patient smokes approximately 1 PPD, down from 1.5, Pt has been smoking for over 30 years. ETOH: A adamantly denies any alcohol use. Illicit drug use: Has any illicit drug use including IV drugs and marijuana FAMILY HISTORY: Father: , emphysema Mother: , unknown Siblings: Healthy as far as patient is aware Children: 3 healthy children Denies know family history of colon, breast, prostate, pancreatic cancer PHYSICAL EXAMINATION: VITAL SIGNS: Please see below GENERAL APPEARANCE: NAD, resting in bed. AAOx3 HEENT:AT/NC, EOMI, moist mucous membranes CARDIOVASCULAR: Regular rate and rhythm, S1S2 +, No M/R/G LUNGS: CTAB, no W/R/R ABDOMEN: nontender, obese abd, bowel sounds are present, no appreciable bruits, nonrigid, soft, no masses BACK: No CVA tenderness MUSCULOSKELETAL: She is able to move all of her extremities equally bilaterally. EXTREMITIES: No lower extremity swelling or edema. Patient does have a skin wound on her left heel, appropriately wrapped and bandaged NEUROLOGICAL: CN 2-12 intact, no focal deficits PSYCHIATRIC: Mood and affect are appropriate LABORATORY DATA: See below. IMAGING: CT of abdomen and pelvis (06/15/20): Acute pancreatitis. No evidence of pancreatic necrosis or an abscess. 15 mm cystic lesion with a peripheral calcification of the head of the pancreas which has developed since prior CT abdomen and pelvis on 01/27/2018. Reimaging every 6 months for 2 years than one year for 2 years than 2 years for 6 years is recommended. Currently, endoscopic ultrasound with FNA is recommended. Striated areas of low attenuation in the lower poles of both kidneys which may represent pyelonephritis or renal infarcts. Calcifications in the renal sinuses bilaterally which may some atherosclerotic calcifications are nonobstructive r enal calculi. Mild sigmoid diverticulosis without diverticulitis. Small fat- containing periumbilical hernia located just above the umbilicus. MICROBIOLOGY: UA neg DIAGNOSES AT TIME OF LEAVING AMA Acute Pancreatitis, hx of pancreatitis Hyperglycemia on admission 2/2 to uncontrolled/ brittle DM type II Hypoglycemia likely 2/2 to decreased appetite, insulin administration Pancreatic cystic lesion Left heel diabetic ulcer PAD Hypertensive heart disease COPD Active tobacco smoker GERD Mood/Depression FRANCESCA, noncompliant with CPAP Obesity Class I DISPOSITION: Patient leaving AMA today. She is recommended to f/u with her PCP as soon as possible after the weekend TIME SPENT ON DISCHARGE: 35 minutes. Vital Signs/I&Os Vital Signs Date Time Temp Pulse Resp B/P (MAP) Pulse Ox O2 Delivery O2 Flow Rate FiO2 06/16/20 14:00 98.4 79 18 143/75 (97) 97 Room Air I&O- Last 24 Hours up to 6 AM 06/16/20 06:00 Intake Total 2950 ml Output Total 1000 ml Balance 1950 ml Laboratory Data Labs 24H Laboratory Tests 2 06/15/20 17:40: Bedside Glucose (Misc Panel) 336H 06/15/20 17:41: Coronavirus (COVID-19)(PCR) NEGATIVE, Influenza Type A (RT-PCR) NEGATIVE, Influenza Type B (RT-PCR) NEGATIVE, Respiratory Syncytial Virus (PCR) NEGATIVE 06/15/20 19:53: Bedside Glucose (Misc Panel) 271H 06/15/20 22:59: Anion Gap 4L, Glomerular Filtration Rate > 60.0, Calcium Level 8.7, Magnesium Level 2.3 06/16/20 00:07: Bedside Glucose (Misc Panel) 55L 06/16/20 00:37: Bedside Glucose (Misc Panel) 103 06/16/20 04:52: Bedside Glucose (Misc Panel) 44L 06/16/20 05:22: Bedside Glucose (Misc Panel) 102 06/16/20 06:18: Bedside Glucose (Misc Panel) 62L 06/16/20 06:36: Nucleated Red Blood Cells % (auto) 0.0, Anion Gap 4L, Glomerular Filtration Rate > 60.0, Calcium Level 8.5, Total Bilirubin 0.2, Aspartate Amino Transf (AST/SGOT) 8, Alanine Aminotransferase (ALT/SGPT) 13, Alkaline Phosphatase 150H, Total Protein 6.0L, Albumin 2.6L, Albumin/Globulin Ratio 0.8L, Triglycerides Level 188H 06/16/20 06:51: Bedside Glucose (Misc Panel) 122H 06/16/20 07:55: Bedside Glucose (Misc Panel) 76 06/16/20 11:10: Urine Color YELLOW, Urine Appearance CLEAR, Urine pH 5.0, Urine Specific [place] 1.026, Urine Protein NEGATIVE, Urine Glucose (UA) 3+H, Urine Ketones NEGATIVE, Urine Blood NEGATIVE, Urine Nitrite NEGATIVE, Urine Bilirubin NEGATIVE, Urine Urobilinogen 0.2, Urine Leukocyte Esterase TRACEH, Urine WBC (Auto) 5H, Urine RBC (Auto) 1, Urine Hyaline Casts (Auto) 0, Urine Bacteria (Auto) NEGATIVE, Urine Squamous Epithelial Cells 1, Urine Mucus (Auto) SMALL, Urine Sperm (Auto) 06/16/20 11:42: Bedside Glucose (Misc Panel) 120H CBC/BMP Laboratory Tests 06/15/20 22:59 06/16/20 06:36 FSBS Laboratory Tests Test 06/15/20 17:40 06/15/20 19:53 06/16/20 00:07 06/16/20 00:37 Range/Units Bedside Glucose (Misc Panel) 336 271 55 103 70-105 MG/DL Test 06/16/20 04:52 06/16/20 05:22 06/16/20 06:18 06/16/20 06:51 Range/Units Bedside Glucose (Misc Panel) 44 102 62 122 70-105 MG/DL Test 06/16/20 07:55 06/16/20 11:42 Range/Units Bedside Glucose (Misc Panel) 76 120 70-105 MG/DL Microbiology Microbiology 06/16/20 Urine Culture, Received Pending Discharge Medications Scheduled Aspirin (Aspirin) 81 Mg Tab.chew, 81 MG PO DAILY, (Reported) Atorvastatin Calcium (Atorvastatin Calcium) 80 Mg Tablet, 80 MG PO QHS, (Reported) Bupropion Hcl (Bupropion Xl) 150 Mg Tab.er.24h, 150 MG PO DAILY, (Reported) Carvedilol (Carvedilol) 3.125 Mg Tablet, 3.125 MG PO BID, (Reported) Clopidogrel Bisulfate (Plavix) 75 Mg Tablet, 75 MG PO DAILY, (Reported) Dapagliflozin Propanediol (Farxiga) 10 Mg Tablet, 10 MG PO DAILY, (Reported) Dulaglutide (Trulicity) 4.5 Mg/0.5 Ml Pen.injctr, 4.5 MG SQ 1XWK, (Reported) SUNDAYS Ertugliflozin Pidolate (Steglatro) 15 Mg Tablet, 15 MG PO QHS, (Reported) Escitalopram Oxalate (Lexapro) 20 Mg Tablet, 20 MG PO DAILY, (Reported) Ferrous Sulfate (Ferrous Sulfate) 325 Mg Tablet, 325 MG PO DAILY, (Reported) Insulin Degludec (Tresiba Flextouch U-200) 200 Unit/1 Ml Insuln.pen, 72 UNIT SC BID, (Reported) Lisinopril (Lisinopril) 5 Mg Tab, 5 MG PO DAILY, (Reported) Loratadine (Loratadine) 10 Mg Tab, 10 MG PO DAILY, (Reported) Metoclopramide HCl (Metoclopramide HCl) 10 Mg Tablet, 10 MG PO BIDWM, (Reported) Omeprazole (Omeprazole) 40 Mg Cap, 40 MG PO BID, (Reported) Pentoxifylline (Pentoxifylline) 400 Mg Tabcr, 400 MG PO TID, (Reported) Pregabalin (Pregabalin) 300 Mg Capsule, 300 MG PO BID, (Reported) Scheduled PRN Albuterol Sulfate (Ventolin Hfa) 108 Mcg/Act Aer, 2 PUFF INH Q4H PRN for SHORTNESS OF BREATH, (Reported) Cyclobenzaprine HCl (Cyclobenzaprine HCl) 5 Mg Tab, 5 MG PO QHS PRN for MUSCLE SPASMS, (Reported) Allergies Coded Allergies: insulin glargine (Verified Allergy, Intermediate, Basalin: severe itching for 8 months while on it, 05/08/20) Grapefruit (Verified Allergy, Unknown, 05/08/20) varenicline (Verified Adverse Reaction, Intermediate, DEPRESSION, 05/08/20) canagliflozin (Verified Adverse Reaction, Mild, yeast infection, 05/08/20) Netta Lofton MD Jun 16, 2020 15:58
--- NOTE | 2020-06-16 19:48 | ECGEPIP ---
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
== END 2020-06-16 14:55 | disposition left against medical advice (07) | DRG 282 ==
LOC: M ED 14:31 → M ED INP 19:33 → ENRESERV 21:30 → M MSPAV 22:37
PROVIDERS: ADMIT Internal Medicine; ATTEND Internal Medicine
DX: K85.90 Acute pancreatitis without necrosis or infection, unspecified (principal); E11.40 Type 2 diabetes mellitus with diabetic neuropathy, unspecified; I11.9 Hypertensive heart disease without heart failure; E11.621 Type 2 diabetes mellitus with foot ulcer; E11.65 Type 2 diabetes mellitus with hyperglycemia; L97.429 Non-pressure chronic ulcer of left heel and midfoot with unspecified severity; K21.9 Gastro-esophageal reflux disease without esophagitis; G47.33 Obstructive sleep apnea (adult) (pediatric); Z91.19 Patient's noncompliance with other medical treatment and regimen; E66.9 Obesity, unspecified; F17.200 Nicotine dependence, unspecified, uncomplicated; F32.9 Major depressive disorder, single episode, unspecified; J44.9 Chronic obstructive pulmonary disease, unspecified; Z79.82 Long term (current) use of aspirin; Z79.899 Other long term (current) drug therapy; Z79.4 Long term (current) use of insulin; Z91.018 Allergy to other foods; Z88.8 Allergy status to other drugs, medicaments and biological substances; I73.9 Peripheral vascular disease, unspecified; E87.1 Hypo-osmolality and hyponatremia; F41.9 Anxiety disorder, unspecified

== ENCOUNTER 2020-06-17 15:23 | Emergency (ER) | payer OTHER ==
[~2020-06-17] VITALS: Ht 162.6 cm; Wt 81.8 kg
[~2020-06-17 15:23] MED LIST changes: +ASPI81CH33 PO; +CARV3.12 PO; +FARX1TAB3 PO; +PREG300C PO
[2020-06-17 15:43] VITALS: BP 119/61
== END 2020-06-17 16:50 | disposition left against medical advice (07) ==
LOC: M ED 16:47
DX: Z53.21 Procedure and treatment not carried out due to patient leaving prior to being seen by health care provider (principal)

== ENCOUNTER → 2020-06-18 | Outpatient (CLI) | payer OTHER ==
[~2020-06-18] MED LIST changes: +BUPR150T12 PO; -BUPR150T4 PO
[2020-06-18 13:31] LABS: BASO # 0.1 10^3/uL (0.0-0.2); EOS # 0.3 10^3/uL (0.0-0.5); EOS % 2.8 % (0.0-3.0); HEMATOCRIT 46.5 % (36.0-47.0); HEMOGLOBIN 14.5 g/dl (12.0-15.5); LYMPH # 2.2 10^3/uL (1.5-5.0); LYMPH % 23.6 % (24.0-44.0); MEAN CORPUSCULAR HEMOGLOBIN 26.6 pg (27.0-33.0); MEAN CORPUSCULAR HGB CONC 31.2 g/dl (32.0-36.5); MEAN CORPUSCULAR VOLUME 85.2 fl (80.0-96.0); MONO # 0.5 10^3/uL (0.0-0.8); MONO % 5.8 % (2.0-8.0); NEUTROPHILS # 6.1 10^3/uL (1.5-8.5); NEUTROPHILS % 66.4 % (36.0-66.0); PLATELET COUNT, AUTOMATED 263 10^3/uL (150-450); RED BLOOD COUNT 5.46 10^6/uL (4.00-5.40); WHITE BLOOD COUNT 9.2 10^3/uL (4.0-10.0)
[2020-06-18 13:43] LABS: INR 0.97; PROTHROMBIN TIME 13.1 SECONDS (12.5-14.3)
[2020-06-18 14:08] LABS: ALT/SGPT 21 U/L (12-78); BILIRUBIN,DIRECT < 0.1 MG/DL (0.0-0.2); BILIRUBIN,TOTAL 0.4 MG/DL (0.2-1.0); BLOOD UREA NITROGEN 18 MG/DL (7-18); CALCIUM LEVEL 8.5 MG/DL (8.5-10.1); CARBON DIOXIDE LEVEL 28 MEQ/L (21-32); CHLORIDE LEVEL 102 MEQ/L (98-107); CREATININE FOR GFR 0.98 MG/DL (0.55-1.30); GLOMERULAR FILTRATION RATE > 60.0 (>51); GLUCOSE, FASTING 334 MG/DL (70-100); LIPASE 718 U/L (73-393); POTASSIUM SERUM 4.5 MEQ/L (3.5-5.1); SODIUM LEVEL 136 MEQ/L (136-145); TOTAL PROTEIN 6.8 GM/DL (6.4-8.2)
== END ==
LOC: M LAB 13:02
PROVIDERS: ATTEND Physician Assistant
DX: K85.90 Acute pancreatitis without necrosis or infection, unspecified (principal)

== ENCOUNTER → 2020-06-25 | Outpatient (CLI) | payer OTHER ==
[2020-06-25 10:34] LABS: BASO # 0.1 10^3/uL (0.0-0.2); BASO % 1.2 % (0.0-1.0); EOS # 0.3 10^3/uL (0.0-0.5); EOS % 3.2 % (0.0-3.0); HEMATOCRIT 48.6 % (36.0-47.0); HEMOGLOBIN 15.5 g/dl (12.0-15.5); LYMPH # 1.9 10^3/uL (1.5-5.0); LYMPH % 17.8 % (24.0-44.0); MEAN CORPUSCULAR HEMOGLOBIN 27.2 pg (27.0-33.0); MEAN CORPUSCULAR HGB CONC 31.9 g/dl (32.0-36.5); MEAN CORPUSCULAR VOLUME 85.3 fl (80.0-96.0); MONO # 0.6 10^3/uL (0.0-0.8); MONO % 5.5 % (2.0-8.0); NEUTROPHILS # 7.6 10^3/uL (1.5-8.5); NEUTROPHILS % 71.8 % (36.0-66.0); PLATELET COUNT, AUTOMATED 319 10^3/uL (150-450); WHITE BLOOD COUNT 10.6 10^3/uL (4.0-10.0)
[2020-06-25 12:39] LABS: ALBUMIN 3.2 GM/DL (3.2-5.2); ALT/SGPT 17 U/L (12-78); BILIRUBIN,DIRECT < 0.1 MG/DL (0.0-0.2); BILIRUBIN,TOTAL 0.4 MG/DL (0.2-1.0); BLOOD UREA NITROGEN 20 MG/DL (7-18); CALCIUM LEVEL 9.6 MG/DL (8.5-10.1); CARBON DIOXIDE LEVEL 30 MEQ/L (21-32); CHLORIDE LEVEL 102 MEQ/L (98-107); CREATININE FOR GFR 0.91 MG/DL (0.55-1.30); GLOMERULAR FILTRATION RATE > 60.0 (>51); GLUCOSE, FASTING 281 MG/DL (70-100); LIPASE 711 U/L (73-393); SODIUM LEVEL 136 MEQ/L (136-145); TOTAL PROTEIN 7.3 GM/DL (6.4-8.2)
== END ==
LOC: M LAB 09:15
PROVIDERS: ATTEND Physician Assistant
DX: K85.90 Acute pancreatitis without necrosis or infection, unspecified (principal)

== ENCOUNTER 2020-06-26 12:16 | Emergency (ER) | payer OTHER ==
[~2020-06-26] VITALS: Ht 162.6 cm; Wt 81.6 kg
[2020-06-26 13:06] LABS: BASO # 0.1 10^3/uL (0.0-0.2); EOS # 0.4 10^3/uL (0.0-0.5); EOS % 2.8 % (0.0-3.0); HEMATOCRIT 46.2 % (36.0-47.0); HEMOGLOBIN 15.1 g/dl (12.0-15.5); LYMPH % 24.2 % (24.0-44.0); MEAN CORPUSCULAR HEMOGLOBIN 27.3 pg (27.0-33.0); MEAN CORPUSCULAR HGB CONC 32.7 g/dl (32.0-36.5); MEAN CORPUSCULAR VOLUME 83.4 fl (80.0-96.0); MONO # 0.6 10^3/uL (0.0-0.8); MONO % 4.6 % (2.0-8.0); NEUTROPHILS # 8.3 10^3/uL (1.5-8.5); NEUTROPHILS % 66.8 % (36.0-66.0); PLATELET COUNT, AUTOMATED 351 10^3/uL (150-450); RED BLOOD COUNT 5.54 10^6/uL (4.00-5.40); WHITE BLOOD COUNT 12.4 10^3/uL (4.0-10.0)
[2020-06-26 13:30] LABS: ALT/SGPT 16 U/L (12-78); BILIRUBIN,DIRECT < 0.1 MG/DL (0.0-0.2); BILIRUBIN,TOTAL 0.3 MG/DL (0.2-1.0); BLOOD UREA NITROGEN 17 MG/DL (7-18); CARBON DIOXIDE LEVEL 30 MEQ/L (21-32); CHLORIDE LEVEL 98 MEQ/L (98-107); CREATININE FOR GFR 1.18 MG/DL (0.55-1.30); GLUCOSE, FASTING 361 MG/DL (70-100); LIPASE 646 U/L (73-393); POTASSIUM SERUM 4.6 MEQ/L (3.5-5.1); SODIUM LEVEL 133 MEQ/L (136-145); TOTAL PROTEIN 7.7 GM/DL (6.4-8.2)
[2020-06-26] MEDS ORDERED: KETOROLAC 30 MG/ML 1ML VIAL IV ONE (13:35)
--- NOTE | 2020-06-26 14:17 | REP ---
INDICATION: pancreatitis COMPARISON: 06/15/2020 TECHNIQUE: Axial noncontrast images from the lung bases to the pubic symphysis with coronal and sagittal reformations. This CT examination was performed using the following dose reduction techniques: Automated exposure control, adjustment of mA and/or kv according to the patient's size, and use of iterative reconstruction technique. FINDINGS: Lung bases are relatively clear. Visualized heart and pericardium normal. Liver, spleen, pancreas, gallbladder, and right adrenal gland are normal by noncontrast evaluation. 1.6 cm left adrenal adenoma unchanged. No peripancreatic inflammatory stranding or CT evidence for acute pancreatitis. Kidneys demonstrate chronic changes including renovascular calcifications and possible small nonobstructing nephroliths up to 3 mm without acute perinephric stranding, hydroureteronephrosis or obstructing ureteral calculi. 2.6 cm right renal hypodensity similar to prior examination and compatible with benign cyst. The enteric system is unremarkable and without obstruction or acute inflammatory process. Normal terminal ileum and appendix identified in the right lower quadrant. Pelvis demonstrates normal bladder and age-appropriate uterus/adnexa. No ascites. No free air. No adenopathy. No focal inflammatory stranding. Atherosclerotic changes and bilateral common iliac stents noted. Musculoskeletal structures are intact and without acute osseous abnormality. IMPRESSION: 1. No CT evidence for acute pancreatitis. Correlation with physical examination and laboratory values may be warranted. 2. No acute abdominopelvic pathology appreciated. 3. Atherosclerotic disease including renovascular calcifications and bilateral common iliac stents. 4. No acute abdominopelvic pathology otherwise appreciated. <Electronically signed by James Ya > 06/26/20 [id number]
[2020-06-26] MEDS ORDERED: ZOFR4TAB16 PO (14:42)
[2020-06-26] MEDS ORDERED: ONDANSETRON 4MG/2ML VIAL As Ordered ONE (14:47)
[2020-06-26] MEDS ORDERED: ONDANSETRON 4MG/2ML VIAL IV ONE (14:50)
[2020-06-26 15:36] VITALS: BP 98/57
== END 2020-06-26 15:40 | disposition home or self-care (01) ==
LOC: M ED 12:16
DX: K85.90 Acute pancreatitis without necrosis or infection, unspecified (principal); R11.0 Nausea; E11.9 Type 2 diabetes mellitus without complications; I25.10 Atherosclerotic heart disease of native coronary artery without angina pectoris; I10 Essential (primary) hypertension; J44.9 Chronic obstructive pulmonary disease, unspecified; F17.200 Nicotine dependence, unspecified, uncomplicated; Z88.1 Allergy status to other antibiotic agents; Z79.4 Long term (current) use of insulin; Z79.82 Long term (current) use of aspirin; Z79.899 Other long term (current) drug therapy
CPT/HCPCS: 36415; 74176; 80048; 80076; 83690; 85025; 96374; 96375; 99284; J1885; J2405

== ENCOUNTER → 2020-08-07 | Outpatient (REF) | payer OTHER ==
[~2020-08-07] MED LIST changes: +FERR324T21 PO; -FERR325T16 PO; -NABU-53 PO; +NABU-73 PO
[2020-08-07 13:20] LABS: INR 0.97; PARTIAL THROMBOPLASTIN TIME 30.1 SECONDS (24.2-38.5); PROTHROMBIN TIME 13.1 SECONDS (12.5-14.3)
[2020-08-07 13:25] LABS: BASO # 0.1 10^3/uL (0.0-0.2); BASO % 0.9 % (0.0-1.0); EOS # 0.2 10^3/uL (0.0-0.5); EOS % 2.1 % (0.0-3.0); HEMATOCRIT 46.6 % (36.0-47.0); HEMOGLOBIN 15.2 g/dl (12.0-15.5); LYMPH # 1.9 10^3/uL (1.5-5.0); LYMPH % 17.3 % (24.0-44.0); MEAN CORPUSCULAR HEMOGLOBIN 28.1 pg (27.0-33.0); MEAN CORPUSCULAR HGB CONC 32.6 g/dl (32.0-36.5); MEAN CORPUSCULAR VOLUME 86.3 fl (80.0-96.0); MONO # 0.5 10^3/uL (0.0-0.8); MONO % 4.7 % (2.0-8.0); NEUTROPHILS # 8.3 10^3/uL (1.5-8.5); NEUTROPHILS % 74.5 % (36.0-66.0); PLATELET COUNT, AUTOMATED 232 10^3/uL (150-450); WHITE BLOOD COUNT 11.1 10^3/uL (4.0-10.0)
== END ==
LOC: M LAB REF 12:32
PROVIDERS: ATTEND Physician Assistant
DX: I70.223 Atherosclerosis of native arteries of extremities with rest pain, bilateral legs (principal); D69.8 Other specified hemorrhagic conditions; Z01.818 Encounter for other preprocedural examination

== ENCOUNTER → 2020-08-07 | Outpatient (REF) | payer OTHER ==
[2020-08-07 14:00] LABS: CREATININE, URINE 30.1 MG/DL; MALB URINE SIEMENS 13.2 MG/L; MAU/CREAT RATIO 43.8 MCG/MG (0.0-30.0)
[2020-08-07 14:20] LABS: ALT/SGPT 21 U/L (12-78); BILIRUBIN,TOTAL 0.3 MG/DL (0.2-1.0); BLOOD UREA NITROGEN 23 MG/DL (7-18); CALCIUM LEVEL 8.8 MG/DL (8.5-10.1); CARBON DIOXIDE LEVEL 26 MEQ/L (21-32); CHLORIDE LEVEL 101 MEQ/L (98-107); CHOLESTEROL LEVEL 172 MG/DL (<200); CHOLESTEROL RISK RATIO 4.648 (<5); CREATININE FOR GFR 0.92 MG/DL (0.55-1.30); GLOMERULAR FILTRATION RATE > 60.0 (>51); GLUCOSE, FASTING 379 MG/DL (70-100); HDL CHOLESTEROL 37 MG/DL (>40); LDL CHOLESTEROL 84 MG/DL (<100); NON-HDL-C 135 MG/DL; SODIUM LEVEL 134 MEQ/L (136-145); TOTAL PROTEIN 6.7 GM/DL (6.4-8.2); TRIGLYCERIDES LEVEL 253 MG/DL (<150)
== END ==
LOC: M LAB REF 12:29
PROVIDERS: ATTEND Family Medicine
DX: E11.40 Type 2 diabetes mellitus with diabetic neuropathy, unspecified (principal); I25.10 Atherosclerotic heart disease of native coronary artery without angina pectoris

== ENCOUNTER 2020-08-30 22:00 | Emergency (ER) | payer OTHER ==
[~2020-08-30] VITALS: Ht 162.6 cm; Wt 85.9 kg
[2020-08-30 22:46] LABS: BASO # 0.1 10^3/uL (0.0-0.2); BASO % 0.6 % (0.0-1.0); EOS # 0.3 10^3/uL (0.0-0.5); EOS % 1.9 % (0.0-3.0); HEMATOCRIT 44.5 % (36.0-47.0); HEMOGLOBIN 14.4 g/dl (12.0-15.5); LYMPH # 2.4 10^3/uL (1.5-5.0); MEAN CORPUSCULAR HEMOGLOBIN 28.2 pg (27.0-33.0); MEAN CORPUSCULAR HGB CONC 32.4 g/dl (32.0-36.5); MEAN CORPUSCULAR VOLUME 87.1 fl (80.0-96.0); MONO # 0.9 10^3/uL (0.0-0.8); MONO % 5.3 % (2.0-8.0); NEUTROPHILS # 13.3 10^3/uL (1.5-8.5); NEUTROPHILS % 77.5 % (36.0-66.0); PLATELET COUNT, AUTOMATED 248 10^3/uL (150-450); RED BLOOD COUNT 5.11 10^6/uL (4.00-5.40); WHITE BLOOD COUNT 17.1 10^3/uL (4.0-10.0)
[2020-08-30 23:13] LABS: ALBUMIN 2.7 GM/DL (3.2-5.2); ALT/SGPT 16 U/L (12-78); BILIRUBIN,DIRECT < 0.1 MG/DL (0.0-0.2); BILIRUBIN,TOTAL 0.2 MG/DL (0.2-1.0); BLOOD UREA NITROGEN 28 MG/DL (7-18); CALCIUM LEVEL 8.5 MG/DL (8.5-10.1); CARBON DIOXIDE LEVEL 26 MEQ/L (21-32); CHLORIDE LEVEL 105 MEQ/L (98-107); CREATININE FOR GFR 1.36 MG/DL (0.55-1.30); GLOMERULAR FILTRATION RATE 43.3 (>51); GLUCOSE, FASTING 196 MG/DL (70-100); LIPASE 493 U/L (73-393); POTASSIUM SERUM 4.4 MEQ/L (3.5-5.1); SODIUM LEVEL 138 MEQ/L (136-145); TOTAL PROTEIN 6.5 GM/DL (6.4-8.2)
[2020-08-30] MEDS ORDERED: MORPHINE 4 MG/ML 1ML VIAL/SYRINGE (J2270) IV ONE (23:45)
[2020-08-30] MEDS ORDERED: ONDANSETRON 4MG/2ML VIAL As Ordered ONE (23:49)
[2020-08-30] MEDS ORDERED: ONDANSETRON 4MG/2ML VIAL IV ONE (23:50)
[2020-08-30] MEDS ORDERED: NS 1,000 ML IV ONE (23:50)
[2020-08-31] MEDS: GASTROGRAFIN SOLUTION 30ML PO SCH ×2 (00:05→00:28)
[2020-08-31] MEDS ORDERED: ISOVUE-370 76% 100ML VIAL As Ordered ONE (01:05)
--- NOTE | 2020-08-31 02:31 | REPVR ---
PROCEDURE INFORMATION: Exam: CT Abdomen And Pelvis With Contrast Exam date and time: 08/30/2020 11:41 PM Age: 55 years old Clinical indication: Abdominal pain; Localized; Left lower quadrant (llq); Additional info: Left lower quadrant pain / bloating TECHNIQUE: Imaging protocol: Computed tomography of the abdomen and pelvis with contrast. Radiation optimization: All CT scans at this facility use at least one of these dose optimization techniques: automated exposure control; mA and/or kV adjustment per patient size (includes targeted exams where dose is matched to clinical indication); or iterative reconstruction. Contrast material: ISO; Contrast volume: 100 ml; Contrast route: INTRAVENOUS (IV); Other contrast: Oral, ggraphin, 600; COMPARISON: CT ABD PELVIS W/O CONTRAST 06/26/2020 1:58 PM FINDINGS: Lungs: Slight bibasilar interstitial coarsening with minimal fibro-atelectatic change, primarily in the right middle lobe and lingula. Liver: Normal. No mass. Gallbladder and bile ducts: Normal. No calcified stones. No ductal dilation. Pancreas: Normal. No ductal dilation. Spleen: Normal. No splenomegaly. Adrenal glands: Left adrenal nodule measuring 16 mm with a Hounsfield measurement of 41. There is question of a 9 x 20 mm right adrenal nodule. Both are redemonstrated and unchanged from the prior study. Kidneys and ureters: There is a right renal cyst measuring 2.6 cm which is redemonstrated and unchanged. Nonobstructing bilateral renal calculi. Mild left hydronephrosis and hydroureter with periureteral edema which extends to the left UVJ with no ureteral, UVJ or bladder calculus seen. Stomach and bowel: Mild stool throughout much of the colon. Appendix: A normal appendix is seen. Intraperitoneal space: Unremarkable. No free air. No significant fluid collection. Vasculature: There is mild calcification of the abdominal aorta with extension into the iliac arteries. There is a mild stenosis of the distal abdominal aorta which may be 30%. There are bilateral common iliac artery stents. There is a high-grade stenosis of the proximal left superficial femoral artery. Lymph nodes: Unremarkable. No enlarged lymph nodes. Urinary bladder: Unremarkable as visualized. Reproductive: Unremarkable as visualized. Bones/joints: Status post sternotomy. Soft tissues: Unremarkable. IMPRESSION: 1. Nonobstructing bilateral renal calculi. 2. Mild residual obstructive uropathy of the left upper tract to the left UVJ with no ureteral, UVJ or bladder calculi. Findings may reflect a recently passed stone. Infection is not excluded. 3. Small bilateral adrenal nodules which are redemonstrated and unchanged from 06/26/2020. Electronically signed by: Freddie Proctor On 08/31/2020 02:31:09 AM
[2020-08-31] MEDS ORDERED: cefTRIAXone SOD 1 GM in D5W MINI-BAG PLUS 50 ML IV ONE (02:50)
[2020-08-31] MEDS ORDERED: TAMSULOSIN 0.4 MG CAP PO ONE (02:55)
[2020-08-31] MEDS ORDERED: TYLE650T38 PO (03:01)
[2020-08-31] MEDS ORDERED: CEPH500C PO (03:01)
[2020-08-31] MEDS ORDERED: FLOM0.4C39 PO (03:01)
[2020-08-31] MEDS ORDERED: REGL10TA6 PO (03:05)
[2020-08-31 04:15] VITALS: BP 119/64
--- NOTE | 2020-08-31 13:50 | ECGEPIP ---
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
== END 2020-08-31 04:36 | disposition home or self-care (01) ==
LOC: M ED 22:00
DX: N39.0 Urinary tract infection, site not specified (principal); N20.1 Calculus of ureter; Z79.51 Long term (current) use of inhaled steroids; Z79.4 Long term (current) use of insulin; Z79.899 Other long term (current) drug therapy; Z91.018 Allergy to other foods; Z79.82 Long term (current) use of aspirin
CPT/HCPCS: 74177; 80048; 80076; 81001; 83690; 85025; 87086; 93005; 96361; 96365; 96375; 99285; J0696; J2270; J2405; Q9963; Q9967

== ENCOUNTER 2020-11-09 23:52 | Inpatient (IN) | payer OTHER ==
[~2020-11-09] VITALS: Ht 162.6 cm; Wt 89.2 kg
[~2020-11-09 23:52] MED LIST changes: +CEPH500C PO; -DOXY100C37 PO; +DOXY1CAP62 PO; +FLOM0.4C39 PO; +OMEP40CA4 PO; -OMEP40CA97 PO; +TYLE650T38 PO
--- NOTE | 2020-11-10 03:59 | REPVR ---
PROCEDURE INFORMATION: Exam: XR Right Ankle Exam date and time: 11/10/2020 2:23 AM Age: 55 years old Clinical indication: Other: Twisted ankle; Additional info: Stepped in pothole, twisted ankle TECHNIQUE: Imaging protocol: XR Right ankle. Views: 3 or more views. COMPARISON: CR Ankle, complete 2020-02-05 00:06 FINDINGS: Bones/joints: No acute fracture or dislocation. 1 cm anterior plantar calcaneal spur. Soft tissues: Mild soft tissue swelling. IMPRESSION: 1. No acute osseous abnormality. 2. Mild soft tissue swelling. Electronically signed by: Matthieu Berger On 11/10/2020 03:58:45 AM
[2020-11-10 07:49] LABS: BASO # 0.1 10^3/uL (0.0-0.2); BASO % 0.6 % (0.0-1.0); EOS # 0.1 10^3/uL (0.0-0.5); EOS % 0.9 % (0.0-3.0); HEMATOCRIT 44.8 % (36.0-47.0); HEMOGLOBIN 14.6 g/dl (12.0-15.5); LYMPH # 2.5 10^3/uL (1.5-5.0); LYMPH % 15.9 % (24.0-44.0); MEAN CORPUSCULAR HEMOGLOBIN 27.4 pg (27.0-33.0); MEAN CORPUSCULAR HGB CONC 32.6 g/dl (32.0-36.5); MEAN CORPUSCULAR VOLUME 84.1 fl (80.0-96.0); MONO # 0.9 10^3/uL (0.0-0.8); MONO % 5.9 % (2.0-8.0); NEUTROPHILS # 11.8 10^3/uL (1.5-8.5); NEUTROPHILS % 75.7 % (36.0-66.0); PLATELET COUNT, AUTOMATED 217 10^3/uL (150-450); RED BLOOD COUNT 5.33 10^6/uL (4.00-5.40); WHITE BLOOD COUNT 15.6 10^3/uL (4.0-10.0)
[2020-11-10] MEDS ORDERED: IPRATROPIUM 0.5MG/ALBUTEROL 2.5MG INH SOL UD 3ML (DUONEB) NEB ONE (08:00)
[2020-11-10] MEDS ORDERED: ALBUTEROL SULFATE 2.5 MG/0.5 ML INH NEB SOLN INH ONE (08:00)
[2020-11-10] MEDS ORDERED: methylPREDNISolone 125MG 2ML VIAL IV ONE (08:00)
[2020-11-10 08:10] LABS: ALBUMIN 2.7 GM/DL (3.2-5.2); ALT/SGPT 21 U/L (12-78); AMYLASE 61 U/L (25-115); BILIRUBIN,DIRECT < 0.1 MG/DL (0.0-0.2); BILIRUBIN,TOTAL 0.2 MG/DL (0.2-1.0); LIPASE 131 U/L (73-393); TOTAL PROTEIN 6.5 GM/DL (6.4-8.2)
--- NOTE | 2020-11-10 08:15 | REP ---
INDICATION: hypotension. COMPARISON: Comparison portable chest x-ray 17 May 2020.. TECHNIQUE: Portable upright AP radiograph. FINDINGS: EKG monitoring electrodes and oxygen delivery tubing are seen. The lungs are symmetrically aerated and free of infiltrate. The pleural angles are sharp. Heart size is borderline unchanged. Pulmonary vasculature is not increased. There is a surgical clip projecting over the aortic knob and lower sternotomy wires are visible. IMPRESSION: No acute disease. <Electronically signed by Eben Almodovar > 11/10/20 [id number]
[2020-11-10] MEDS ORDERED: LIDOCAINE 2% 5ML JELLY UROJET TOP ONE ×2 (08:20→09:05)
[2020-11-10] MEDS ORDERED: NS 500 ML IV ONE (08:25)
[2020-11-10 08:33] LABS: CALCIUM LEVEL 8.3 MG/DL (8.5-10.1); CREATININE FOR GFR 2.76 MG/DL (0.55-1.30); GLOMERULAR FILTRATION RATE 19.1 (>51); POTASSIUM SERUM 4.7 MEQ/L (3.5-5.1)
[2020-11-10] MEDS ORDERED: EZET10TA21 PO (08:41)
[2020-11-10 08:46] LABS: ACETAMINOPHEN LEVEL < 2.0 UG/ML (10.0-30.0); CK-MB VALUE MASS 5.3 NG/ML (<3.6); CPK CREATINE PHOSPHOKINASE 267 U/L (26-192); MB/CK RELATIVE INDEX 1.99 (< OR =4); SALICYLATE LEVEL 4.8 MG/DL (5.0-30.0); TROPONIN I < 0.02 NG/ML (< 0.10)
[2020-11-10 08:47] LABS: ETHYL ALCOHOL (ETHANOL) < 0.003 % (0.000-0.010)
--- NOTE | 2020-11-10 08:52 | REP ---
INDICATION: altered ms. COMPARISON: Comparison head CT study is from June 07, 2015.. TECHNIQUE: Helical scanning is acquired. 5 mm axial images were reformatted. Coronal MPR images were generated. FINDINGS: Preliminary digital internal sales radiograph is unremarkable. Bone window settings demonstrate intact bony calvarium. Vascular calcification is noted in the distal vertebral and distal internal carotid arteries. Visualized paranasal sinuses are clear. No intraorbital abnormality is seen. On soft tissue window settings, the lateral, 3rd, and 4th ventricles are normal in size and position. Sweet-white differentiation pattern is normal above and below the tentorium. There is no evidence of intracranial hemorrhage. No infarct, mass, extra-axial fluid collection, or midline shift is seen. IMPRESSION: Vascular calcification. No acute intracranial abnormality.. <Electronically signed by Eben Almodovar > 11/10/20 [id number]
--- NOTE | 2020-11-10 08:58 | REP ---
INDICATION: hypoxia cr - 3.1. COMPARISON: Comparison CT study of the chest is from August 23, 2018.. TECHNIQUE: Helical scanning is acquired. 3 mm axial images are generated. Coronal and sagittal MPR images are generated. FINDINGS: Borderline heart size unchanged. No evidence of pleural effusion or pericardial effusion. Extensive vascular calcification noted including coronary artery distribution. Prior sternotomy. No mass or adenopathy is appreciated. There is a subtle interstitial edema pattern in the lung snowden which may imply mild CHF. This is diffuse. There is an area of linear scarring again noted in the lingular segment of the left upper lobe. No endobronchial disease is seen. No bony destructive lesion noted. There is a stable small left adrenal nodule consistent with adrenal adenoma. IMPRESSION: Borderline heart size and diffusely prominent pulmonary interstitial markings question CHF. No pleural effusion seen. Coronary artery vascular calcification prior sternotomy. No focal infiltrate. <Electronically signed by Eben Almodovar > 11/10/20 [id number]
[2020-11-10] MEDS ORDERED: ESCITALOPRAM OXALATE 10 MG TAB (LEXAPRO) PO SCH (09:00)
--- NOTE | 2020-11-10 09:04 | REP ---
INDICATION: abdominal pain COMPARISON: Comparison CT study August 31, 2020.. TECHNIQUE: Helical scanning is acquired and 3 mm axial images were reformatted. Coronal and sagittal MPR images were generated and reviewed. 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 There is a stable small low-density left adrenal adenoma. Right adrenal gland is unremarkable. Vascular calcification is noted. Liver and spleen are normal in size homogeneous in texture. No pancreatic mass or cyst is seen. There is a small focal pancreatic head calcification unchanged. This may reflect previous pancreatitis. A right renal cyst is again noted unchanged measuring 2.7 cm in greatest diameter. No retroperitoneal mass or adenopathy is seen. Bilateral common iliac artery stents are noted in place. No pelvic mass or adenopathy is seen. There is post operative scarring in the right inguinal soft tissues. Small and large intestinal bowel loops are unremarkable. No uterine or ovarian abnormality is seen. No urinary tract calculus is seen. No hydronephrosis is noted. A normal noninflamed appendix is seen in the right lower quadrant. IMPRESSION: No acute abdominal or pelvic abnormality. Stable findings as above. <Electronically signed by Eben Almodovar > 11/10/20 0900
[2020-11-10] MEDS ORDERED: NS 1,000 ML IV ONE (09:05)
[2020-11-10] MEDS ORDERED: PIPERACILLIN/TAZOBACTAM SOD 4.5 GM in D5W MINI-BAG PLUS 50 ML IV ONE (09:15)
[2020-11-10 09:49] LABS: AMPHETAMINES LEVEL URINE NEGATIVE (NEGATIVE); BARBITURATES URINE NEGATIVE (NEGATIVE); BENZODIAZEPINES URINE NEGATIVE (NEGATIVE); CANNABINOIDS URINE NEGATIVE (NEGATIVE); COCAINE METABOLITE URINE NEGATIVE (NEGATIVE); METHADONE URINE NEGATIVE (NEGATIVE); OPIATES URINE POSITIVE (NEGATIVE); PHENCYCLIDINE URINE NEGATIVE (NEGATIVE)
[2020-11-10] MEDS ORDERED: ACETAMINOPHEN TAB 650MG DOSE (2X325MG) PO PRN (10:05)
[2020-11-10] MEDS ORDERED: NALOXONE 2MG/2ML SYRINGE (J2310 PER 1MG) IV STA ×2 (10:17→11:10)
[2020-11-10] MEDS ORDERED: NYST1POW9 TOP (10:42)
[2020-11-10] MEDS ORDERED: NALOXONE 2MG/2ML SYRINGE (J2310 PER 1MG) As Ordered ONE (11:11)
[2020-11-10] MEDS ORDERED: GLUCOSE 4GM CHEW TABLET PO PRN (12:25)
[2020-11-10] MEDS ORDERED: DEXTROSE 50% 50 ML SYRINGE IV PRN (12:25)
[2020-11-10] MEDS ORDERED: ALBUTEROL 90 MCG/ACT 8GM HFA INHALER INH PRN (12:25)
[2020-11-10] MEDS ORDERED: GLUCAGON INJ 1MG VIAL SC PRN (12:25)
--- NOTE | 2020-11-10 12:34 | HPEPDOC ---
[facility] Medical History & Physical Date of Admission Nov 10, 2020 Date of Service: Nov 10, 2020 Attending Physician: SARAH LOJA MD History and Physical CHIEF COMPLAINT: Ankle sprain, then a few hours later was unarousable and lethargic per ED HISTORY OF PRESENT ILLNESS: 55-year-old W with a history of IDDM, CVD s/p CABG, hypertension, COPD, senior living smoker, probable FRANCESCA, peripheral arterial disease who presented to the ED after slipping and twisting her R ankle and presented in pain. She was in the waiting room for >4-6h per ED provider and at the time that she finally assessed this morning in the room, she was asleep and barely arousable. She also developed hypotension to SBP 80s and do in that setting she did an ABG that showed mild respiratory acidosis at pH 7.27/CO2 53/O2 91. She placed her on BiPAP and gave her 1L NS, emir BCx, UA that was positive with 1+ bacteria, 19 WBCs and trace leukocyte esterase, while WBC was 15.6, hgb 14.6, platelets 217, na 133, K 4.7, bicarb of 21, BUN and Cr 2.76 (from a baseline of 1-1.3). She was also given empiric piptazo. In the meantime she has a CT head that showed no acute intracranial abnormalities, CT chest without contrast that showed interstitial markings without focal infiltrate, CT A/P that was unremarkable, an initial CXR that was without acute pathology and a R ankle XR that showed mild soft tissue swelling without any noted fractures. After 2 hours of BiPAP a repeat ABG was performed that was stable from prior with mild respiratory acidosis. Of note, she had a tox screen that was positive for opioids though she is not prescribed any and denied use of any. I was not convinced that she would become obtunded from mild hypercarbia thought this was i/s/o an NOE without compensatory metabolic alkalosis, her ABG simply could not explain the degree of altered mentation. Given that she was positive for opioids on tox screen with gave her 2mg of narcan and she was transiently more awake, starting to be conversational and asking for some coffee. At this time I am now admitting her for an NOE and UTI and mild hypercarbic respiratory failure i/s/o FRANCESCA with recent opioid use noted on tox screen. PAST MEDICAL HISTORY: IDDM, history of noncompliance COPD HTN PVD s/p bypass Depression/Anxiety FRANCESCA, reports not having a CPAP but EMR reports non-compliance previously Fatty liver PAST SURGICAL HISTORY: History of tracheostomy CABG, 2015 3 Salpingectomy and oophrectomy, 2008 Bladder suspension, 2011 Angioplasty, 07/06 Angioplasty of left leg, 02/05/20 Angioplasty of right leg, 02/12/20 Wire replacement in heart, 02/05 Lower extremity bypass, 02/05 SOCIAL HISTORY: Marital status: Single Resides in: A first-floor apartment in [place] Children: 3 children Tobacco use: Smokes 1 PPD, smoking for over 30 years. ETOH: Denies frequent use Illicit drug use: Denies yet tox screen is positive for opioids. FAMILY HISTORY: Father: , COPD Mother: , unknown ALLERGIES: Please see below. REVIEW OF SYSTEMS: Denied recent fever, chills, abdominal pain, chest pain, palpitations, headache, dizziness. All else I could not perform as she was drowsy. HOME MEDICATIONS: Please see below. PHYSICAL EXAMINATION: VITAL SIGNS: Please see below GENERAL APPEARANCE: Somnolent, awake at voice but falls asleep when I stop talking, answers questions appropriately HEENT: Normoacephalic, atraumatic, EOMI, sclerae nonicteric, dry MM CARDIOVASCULAR: Regular rate and rhythm without any appreciable murmur, no appreciable JVD LUNGS: CTAB, no wheezing, rhonchi or crackles, has a hacking cough, currently took off BiPAP mask on room air ABDOMEN: normoactive bowel sounds in all 4 quadrants, soft, obese, NTND MUSCULOSKELETAL: She is able to move all of her extremities equally bilaterally. EXTREMITIES: No lower extremity swelling or edema. No noted wounds, has healed scares in BLE. NEUROLOGICAL: Clear speech, no facial droop, moving all extremities and oriented fully x 3 LABORATORY DATA and IMAGING: see below MICROBIOLOGY: Please see below. 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 PLAN: #R ankle sprain -Splint placed in the ED -PT/OT #Encephalopathy: Likely metabolic 2/2 FRANCESCA with recent opioid use. -s/p narcan x 2 -s/p BiPAP for mild hypercarbia with respiratory acidosis --> pending ABG after removing mask, may have to place back on BiPAP until mentation improves -treating for UTI -No CT evidence acute intracranial abnormalities #UTI: -UA was positive, f/u UCx -Placed on empiric zosyn -s/p 500cc bolus #IDDM with neuropathy -levemir 60 BID -FSBG AC/HS -SSI AC'HS -hypoglycemia protocol -consistent carb diet #PAD -ASA, Plavix, statin #CAD s/p CABG -is on ASA/plavix/statin #Hypertensive heart disease -Carvedilol, Lisinopril #COPD -Oxygen titration -Albuterol PRN #Active tobacco smoker -Cessation education, declined replacement therapy. #GERD -c/w PPI #Mood/Depression -Bupropion and lexapro #FRANCESCA, noncompliant with CPAP currently mildly hypercarbic -BiPAP vs. supplemental oxygen per pending ABG #Obesity Class I -Complicating care -Recommend outpatient follow-up for diet and lifestyle modifications DVT PROPHYLAXIS: heparin BID CODE STATUS: FULL CODE DISPO: Anticipate >2 night stay Vital Signs Vital Signs Date Time Temp Pulse Resp B/P (MAP) Pulse Ox O2 Delivery O2 Flow Rate FiO2 11/10/20 09:22 80 98 11/10/20 09:15 92/53 (66) 11/10/20 08:10 30 11/10/20 07:37 Nasal Cannula 4.0 11/10/20 07:36 97.7 20 Laboratory Data Labs 24H Laboratory Tests 2 11/10/20 07:31: Immature Granulocyte % (Auto) 1.0, Neutrophils (%) (Auto) 75.7H, Lymphocytes (%) (Auto) 15.9L, Monocytes (%) (Auto) 5.9, Eosinophils (%) (Auto) 0.9, Basophils (%) (Auto) 0.6, Neutrophils # (Auto) 11.8H, Lymphocytes # (Auto) 2.5, Monocytes # (Auto) 0.9H, Eosinophils # (Auto) 0.1, Basophils # (Auto) 0.1, Nucleated Red Blood Cells % (auto) 0.0, Lactic Acid Level 1.4, Total Bilirubin 0.2, Direct Bilirubin < 0.1, Aspartate Amino Transf (AST/SGOT) 21, Alanine Aminotransferase (ALT/SGPT) 21, Alkaline Phosphatase 202H, Total Protein 6.5, Albumin 2.7L, Albumin/Globulin Ratio 0.7L, Amylase Level 61, Lipase 131 11/10/20 07:36: POC Glucose (Misc Panel) 99, POC Sodium (Misc Panel) 132L, POC Potassium (Misc Panel) 4.5, POC Chloride (Misc Panel) 100, POC Total CO2 (Misc Panel) 23.0, POC Blood Urea Nitrogen (Misc Panel 46H, POC Ionized Calcium (Misc Panel) 4.1L, POC Creatinine (Misc Panel) 3.1H, POC Hematocrit (Misc Panel) 44.0 11/10/20 07:52: Anion Gap 10, Glomerular Filtration Rate 19.1L, Calcium Level 8.3L, Ammonia 17, Total Creatine Kinase 267H, Creatine Kinase MB 5.3H, Creatine Kinase MB Relative Index 1.99, Troponin I < 0.02, TQ-Lal-T-Type Natriuretic Peptide 1127H, Thyroid Stimulating Hormone (TSH) 1.260, Salicylates Level 4.8L, Acetaminophen Level < 2.0L, Ethyl Alcohol Level < 0.003 11/10/20 07:56: POC Total CO2 (Misc Panel) 26.0, POC pH (Misc Panel) 7.279L, POC Base Excess (Misc Panel) -2.0, POC Saturated Percent O2 (Misc) 96, POC pO2 (Misc Panel) 91.0, POC pCO2 (Misc Panel) 53.1H, POC HCO3 (Misc Panel) 24.9 11/10/20 09:08: Urine Color OSCAR, Urine Appearance HAZY, Urine pH 5.0, Urine Specific Ewing 1.018, Urine Protein NEGATIVE, Urine Glucose (UA) 1+H, Urine Ketones TRACEH, Urine Blood NEGATIVE, Urine Nitrite NEGATIVE, Urine Bilirubin NEGATIVE, Urine Urobilinogen 2.0H, Urine Leukocyte Esterase TRACEH, Urine WBC (Auto) 19H, Urine RBC (Auto) 3, Urine Hyaline Casts (Auto) 15, Urine Bacteria (Auto) 1+H, Urine Squamous Epithelial Cells 1, Urine Mucus (Auto) SMALL, Urine Sperm (Auto) , Urine Opiates Screen POSITIVEH, Urine Methadone Screen NEGATIVE, Urine Barbiturates Screen NEGATIVE, Urine Phencyclidine Screen NEGATIVE, Urine Amphetamines Screen NEGATIVE, Urine Benzodiazepines Screen NEGATIVE, Urine Cocaine Metabolite Screen NEGATIVE, Urine Cannabinoids Screen NEGATIVE CBC/BMP Laboratory Tests 11/10/20 07:31 11/10/20 07:52 Microbiology Microbiology 11/10/20 Urine Culture, Received Pending 11/10/20 Blood Culture, Received Pending 11/10/20 Respiratory Virus Panel (PCR) (SAIMA) - Final, Complete 11/10/20 Blood Culture, Received Pending Home Medications Scheduled Aspirin (Aspirin) 81 Mg Tab.chew, 81 MG PO DAILY Atorvastatin Calcium (Atorvastatin Calcium) 80 Mg Tablet, 80 MG PO QHS Bupropion Hcl (Bupropion Xl) 150 Mg Tab.er.24h, 150 MG PO QHS Carvedilol (Carvedilol) 3.125 Mg Tablet, 3.125 MG PO BID Clopidogrel Bisulfate (Plavix) 75 Mg Tablet, 75 MG PO DAILY Dapagliflozin Propanediol (Farxiga) 10 Mg Tablet, 10 MG PO DAILY Escitalopram Oxalate (Lexapro) 20 Mg Tablet, 20 MG PO DAILY Ezetimibe (Ezetimibe) 10 Mg Tablet, 10 MG PO DAILY Ferrous Sulfate (Ferrous Sulfate) 325 Mg Tablet, 325 MG PO DAILY Insulin Degludec (Tresiba Flextouch U-200) 200 Unit/1 Ml Insuln.pen, 72 UNIT SC BID Lisinopril (Lisinopril) 5 Mg Tab, 5 MG PO DAILY Loratadine (Loratadine) 10 Mg Tab, 10 MG PO DAILY Metoclopramide HCl (Metoclopramide HCl) 10 Mg Tablet, 10 MG PO BIDWM Omeprazole (Omeprazole) 40 Mg Cap, 40 MG PO BID Pentoxifylline (Pentoxifylline) 400 Mg Tabcr, 400 MG PO TID Scheduled PRN Albuterol Sulfate (Ventolin Hfa) 108 Mcg/Act Aer, 2 PUFF INH Q4H PRN for SHORTNESS OF BREATH Cyclobenzaprine HCl (Cyclobenzaprine HCl) 5 Mg Tab, 5 MG PO QHS PRN for MUSCLE SPASMS Nystatin (Nystatin Powder) 15 Gm Powder, 1 APPLIC TOP BID PRN for RASH/ITCHING APPLY TO ABDOMINAL FOLDS Allergies Coded Allergies: insulin glargine (Verified Allergy, Intermediate, Basalin: severe itching for 8 months while on it, 05/08/20) Grapefruit (Verified Allergy, Unknown, 05/08/20) varenicline (Verified Adverse Reaction, Intermediate, DEPRESSION, 05/08/20) canagliflozin (Verified Adverse Reaction, Mild, yeast infection, 05/08/20) A-FIB/CHADSVASC A-FIB History Current/History of A-Fib/PAF?: No Current PO Anticoag Therapy: No Age/Risk Factor Scoring CHADSVASC: CHADSVASC Response (Comments) Value Age Risk Factor Age < 65 years old 0 Hx of CHF No 0 Hx of HTN Yes 1 Hx of Stroke/TIA/or VTE No 0 Hx of Diabetes Yes 1 Hx of Vascular Disease Yes 1 Total 3 Treatment Treatment ordered: NONE Reason Anticoagulant not given: Not indicated/[id number] SARAH LOJA MD Nov 10, 2020 10:16
[2020-11-10] MEDS: LORATADINE 10 MG TAB PO SCH (14:42)
[2020-11-10] MEDS: ASPIRIN 81 MG CHEW TABLET PO SCH (14:42)
[2020-11-10] MEDS: CARVedilol 3.125 MG TAB PO SCH ×3 (14:42→21:08)
[2020-11-10] MEDS: ESCITALOPRAM OXALATE 10 MG TAB (LEXAPRO) PO SCH (14:42)
[2020-11-10] MEDS: OMEPRAZOLE 20 MG CAP PO SCH ×2 (14:42→21:09)
[2020-11-10] MEDS: EZETIMIBE 10 MG TAB (ZETIA) PO SCH (14:42)
[2020-11-10] MEDS: FERROUS SULFATE 325MG TAB PO SCH (14:42)
[2020-11-10] MEDS: buPROPion **XL** TABLET 150MG (WELLBUTRIN XL) PO SCH (14:42)
[2020-11-10] MEDS: CLOPIDOGREL 75 MG TAB PO SCH (14:42)
[2020-11-10 15:43] VITALS: BP 115/59
[2020-11-10] MEDS: PENTOXIFYLLINE 400 MG TAB PO SCH ×2 (16:00→21:15)
[2020-11-10] MEDS: PIPERACILLIN/TAZOBACTAM SOD 2.25 GM in D5W MINI-BAG PLUS 50 ML IV SCH ×2 (16:33→21:10)
[2020-11-10] MEDS: HumaLOG INSULIN (NovoLOG) PER UNIT SC SCH (16:39)
[2020-11-10] MEDS ORDERED: SLF 3 ML SYR IV PRN (16:40)
[2020-11-10] MEDS ORDERED: METOCLOPRAMIDE 10 MG TAB PO SCH (18:00)
[2020-11-10 20:00] VITALS: BP 136/68
[2020-11-10] MEDS ORDERED: HumaLOG INSULIN (NovoLOG) PER UNIT SC SCH (21:00)
[2020-11-10] MEDS ORDERED: ATORVASTATIN 20 MG TAB PO SCH (21:00)
[2020-11-10] MEDS: HEPARIN SOD (PORCINE) 5000UNITS/ML 1ML VIAL/SYRINGE SC SCH (21:09)
[2020-11-10] MEDS: SLF 3 ML SYR IV SCH (21:10)
[2020-11-10] MEDS: LEVEMIR (INSULIN DETEMIR) 1 UNITS/0.01ML SC SCH (21:17)
[2020-11-11] VITALS: BP 134/61
[2020-11-11 04:00] VITALS: BP 127/73
[2020-11-11] MEDS: PIPERACILLIN/TAZOBACTAM SOD 2.25 GM in D5W MINI-BAG PLUS 50 ML IV SCH (04:00)
[2020-11-11 05:20] LABS: HEMATOCRIT 46.1 % (36.0-47.0); HEMOGLOBIN 14.9 g/dl (12.0-15.5); MEAN CORPUSCULAR HEMOGLOBIN 27.4 pg (27.0-33.0); MEAN CORPUSCULAR HGB CONC 32.3 g/dl (32.0-36.5); MEAN CORPUSCULAR VOLUME 84.7 fl (80.0-96.0); PLATELET COUNT, AUTOMATED 223 10^3/uL (150-450); RED BLOOD COUNT 5.44 10^6/uL (4.00-5.40); WHITE BLOOD COUNT 18.8 10^3/uL (4.0-10.0)
[2020-11-11 05:46] LABS: CREATININE FOR GFR 1.38 MG/DL (0.55-1.30); GLOMERULAR FILTRATION RATE 42.6 (>51); MAGNESIUM LEVEL 2.6 MG/DL (1.8-2.4); POTASSIUM SERUM 5.6 MEQ/L (3.5-5.1)
[2020-11-11] MEDS: SLF 3 ML SYR IV SCH (06:26)
[2020-11-11 07:39] VITALS: BP 140/67
[2020-11-11] MEDS ORDERED: NITR100C2 PO (08:32)
[2020-11-11] MEDS: OMEPRAZOLE 20 MG CAP PO SCH (08:38)
[2020-11-11] MEDS: buPROPion **XL** TABLET 150MG (WELLBUTRIN XL) PO SCH (08:38)
[2020-11-11 08:39] VITALS: BP 140/67
[2020-11-11] MEDS: FERROUS SULFATE 325MG TAB PO SCH (08:39)
[2020-11-11] MEDS: PENTOXIFYLLINE 400 MG TAB PO SCH (08:39)
[2020-11-11] MEDS: ASPIRIN 81 MG CHEW TABLET PO SCH (08:39)
[2020-11-11] MEDS: ESCITALOPRAM OXALATE 10 MG TAB (LEXAPRO) PO SCH (08:39)
[2020-11-11] MEDS: CLOPIDOGREL 75 MG TAB PO SCH (08:39)
[2020-11-11] MEDS: CARVedilol 3.125 MG TAB PO SCH (08:39)
[2020-11-11] MEDS: LEVEMIR (INSULIN DETEMIR) 1 UNITS/0.01ML SC SCH (08:40)
[2020-11-11] MEDS: EZETIMIBE 10 MG TAB (ZETIA) PO SCH (08:40)
[2020-11-11] MEDS: LORATADINE 10 MG TAB PO SCH (08:40)
[2020-11-11] MEDS: HumaLOG INSULIN (NovoLOG) PER UNIT SC SCH (08:40)
[2020-11-11] MEDS: HEPARIN SOD (PORCINE) 5000UNITS/ML 1ML VIAL/SYRINGE SC SCH (08:41)
--- NOTE | 2020-11-11 08:46 | DS.PDOC ---
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 previously confirmed FRANCESCA Peripheral arterial disease Obesity COMPLICATIONS/CHIEF COMPLAINT: Acute Renal Failure Ankle Sprain Uti. HISTORY OF PRESENT ILLNESS and HOSPITAL COURSE: 55-year-old W with a history of IDDM, CVD s/p CABG, hypertension, COPD, halfway smoker, probable FRANCESCA, peripheral arterial disease who presented to the ED after slipping and twisting her R ankle and presented in pain. She was in the waiting room for >4-6h per ED provider and at the time that she finally assessed her in the room, the patient was asleep and barely arousable. She also developed hypotension to SBP 80s and in that setting she did an ABG that showed mild respiratory acidosis at pH 7.27/CO2 53/O2 91. She was placed on BiPAP and gave her 1L NS, emir BCx, UA that was positive with 1+ bacteria, 19 WBCs and trace leukocyte esterase, while WBC was 15.6, hgb 14.6, platelets 217, na 133, K 4.7, bicarb of 21, BUN and Cr 2.76 (from a baseline of 1-1.3). She was also given empiric piptazo. In the meantime she has a CT head that showed no acute intracranial abnormalities, CT chest without contrast that showed interstitial markings without focal infiltrate, CT A/P that was unremarkable, an initial CXR that was without acute pathology and a R ankle XR that showed mild soft tissue swelling without any noted fractures. After 2 hours of BiPAP a repeat ABG was performed that was stable from prior with mild respiratory acidosis. Of note, she had a tox screen that was positive for opioids though she is not prescribed. I was not convinced that she would become obtunded from mild hypercarbia thought this was i/s/o an NOE without compensatory metabolic alkalosis, her ABG simply could not explain the degree of altered mentation. Given that she was positive for opioids on tox screen I ordered 2mg of narcan x 2 and she immediately awoke and confirmed having taken 2 oxycodones before she came to the from a leftover old prescription. I counselled her to not take medications that she is not prescribed especially controlled substances as this may be life threatening or lead to addiction. I subsequently admitted her for an NOE and UTI and mild hypercarbic respiratory failure i/s/o FRANCESCA with recent opioid use. By day 2 AM she did well, she was noted however to have nocturnal hypoxemia c/w FRANCESCA and I am now discharging her home with referral to pulmonology for evaluation of FRANCESCA and treatment. In the meantime, I will give her a 5 day course of macrobid for a presumed UTI. Of note, the leukocytosis at discharge is largely driven by the IV steroids she received in the ED when she was obtunded as they suspected poten tial COPD exacerbation. She worked with PT and was recommended to use her walker until her sprain resolves and has a splint that was provided by the ED physician. DISCHARGE MEDICATIONS: Please see below. ALLERGIES: Please see below. PHYSICAL EXAMINATION ON DISCHARGE: VITAL SIGNS: Please see below. GENERAL APPEARANCE: Awake, alert, answers questions appropriately HEENT: Normoacephalic, atraumatic, EOMI, sclerae nonicteric, dry MM CARDIOVASCULAR: Regular rate and rhythm without any appreciable murmur, no appreciable JVD LUNGS: CTAB, no wheezing, rhonchi or crackles, has a hacking cough, currently took off BiPAP mask on room air ABDOMEN: normoactive bowel sounds in all 4 quadrants, soft, obese, NTND MUSCULOSKELETAL: She is able to move all of her extremities equally bilaterally. EXTREMITIES: No lower extremity swelling or edema. No noted wounds, has healed scares in BLE. NEUROLOGICAL: Clear speech, no facial droop, moving all extremities and oriented fully x 3 LABORATORY DATA: Please see below. IMAGING: CXR: no acute cardiopulmonary abnormalities CT chest without contrast: Borderline heart size unchanged. No evidence of pleural effusion or pericardial effusion. Extensive vascular calcification noted including coronary artery distribution. Prior sternotomy. No mass or adenopathy is appreciated. There is a subtle interstitial edema pattern in the lung snowden which may imply mild CHF. This is diffuse. There is an area of linear scarring again noted in the lingular segment of the left upper lobe. No endobronchial disease is seen. No bony destructive lesion noted. There is a stable small left adrenal nodule consistent with adrenal adenoma. IMPRESSION: Borderline heart size and diffusely prominent pulmonary interstitial markings question CHF. No pleural effusion seen. Coronary artery vascular calcification prior sternotomy. No focal infiltrate. head CT: No acute intracranial abnormalities R ankle XR: Bones/joints: No acute fracture or dislocation. 1 cm anterior plantar calcaneal spur. Soft tissues: Mild soft tissue swelling. IMPRESSION: 1. No acute osseous abnormality. 2. Mild soft tissue swelling. 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 There is a stable small low-density left adrenal adenoma. Right adrenal gland is unremarkable. Vascular calcification is noted. Liver and spleen are normal in size homogeneous in texture. No pancreatic mass or cyst is seen. There is a small focal pancreatic head calcification unchanged. This may reflect previous pancreatitis. A right renal cyst is again noted unchanged measuring 2.7 cm in greatest diameter. No retroperitoneal mass or adenopathy is seen. Bilateral common iliac artery stents are noted in place. No pelvic mass or adenopathy is seen. There is post operative scarring in the right inguinal soft tissues. Small and large intestinal bowel loops are unremarkable. No uterine or ovarian abnormality is seen. No urinary tract calculus is seen. No hydronephrosis is noted. A normal noninflamed appendix is seen in the right lower quadrant. IMPRESSION: No acute abdominal or pelvic abnormality. Stable findings as above. PROGNOSIS: Good ACTIVITY: As tolerated DIET: Consistent carb DISCHARGE PLAN: Home with 5d of macrobid for UTI and pulm referral for FRANCESCA DISPOSITION: home DISCHARGE INSTRUCTIONS: Home with 5d of macrobid for UTI and pulm referral for FRANCESCA ITEMS TO FOLLOWUP ON ON OUTPATIENT: R ankle sprain with PCP within 7d FRANCESCA with pulm UTI with PCP DISCHARGE CONDITION: Stable TIME SPENT ON DISCHARGE: 44 minutes. Vital Signs/I&Os Vital Signs Date Time Temp Pulse Resp B/P (MAP) Pulse Ox O2 Delivery O2 Flow Rate FiO2 11/11/20 07:39 98.8 57 18 140/67 (91) 97 Nasal Cannula 4.0 11/10/20 11:00 30 I&O- Last 24 Hours up to 6 AM 11/11/20 06:00 Intake Total 850 ml Output Total 2300 ml Balance -1450 ml Laboratory Data Labs 24H Laboratory Tests 2 11/10/20 09:08: Urine Color OSCAR, Urine Appearance HAZY, Urine pH 5.0, Urine Specific [place] 1.018, Urine Protein NEGATIVE, Urine Glucose (UA) 1+H, Urine Ketones TRACEH, Urine Blood NEGATIVE, Urine Nitrite NEGATIVE, Urine Bilirubin NEGATIVE, Urine Urobilinogen 2.0H, Urine Leukocyte Esterase TRACEH, Urine WBC (Auto) 19H, Urine RBC (Auto) 3, Urine Hyaline Casts (Auto) 15, Urine Bacteria (Auto) 1+H, Urine Squamous Epithelial Cells 1, Urine Mucus (Auto) SMALL, Urine Sperm (Auto) , Urine Opiates Screen POSITIVEH, Urine Methadone Screen NEGATIVE, Urine Barbiturates Screen NEGATIVE, Urine Phencyclidine Screen NEGATIVE, Urine Amphetamines Screen NEGATIVE, Urine Benzodiazepines Screen NEGATIVE, Urine Cocaine Metabolite Screen NEGATIVE, Urine Cannabinoids Screen NEGATIVE 11/10/20 10:28: POC pH (Misc Panel) 7.274L, POC Base Excess (Misc Panel) -1.0, POC Saturated Percent O2 (Misc) 96, POC pO2 (Misc Panel) 99.0, POC pCO2 (Misc Panel) 55.3H, POC HCO3 (Misc Panel) 25.6, POC Total CO2 (Misc Panel) 27.0 11/10/20 12:38: POC pH (Misc Panel) 7.288L, POC Base Excess (Misc Panel) -3.0L, POC Saturated Percent O2 (Misc) 90L, POC pO2 (Misc Panel) 65.0L, POC pCO2 (Misc Panel) 48.8H, POC HCO3 (Misc Panel) 23.3, POC Total CO2 (Misc Panel) 25.0 11/10/20 16:36: Bedside Glucose (Misc Panel) 95 11/10/20 20:55: Bedside Glucose (Misc Panel) 97 11/11/20 05:07: Nucleated Red Blood Cells % (auto) 0.0, Anion Gap 3L, Glomerular Filtration Rate 42.6L, Calcium Level 9.0, Magnesium Level 2.6H CBC/BMP Laboratory Tests 11/11/20 05:07 FSBS Laboratory Tests Test 11/10/20 16:36 11/10/20 20:55 Range/Units Bedside Glucose (Misc Panel) 95 97 70-105 MG/DL Microbiology Microbiology 11/10/20 Urine Culture, Received Pending 11/10/20 Blood Culture, Received Pending 11/10/20 Respiratory Virus Panel (PCR) (SAIMA) - Final, Complete 11/10/20 Blood Culture - Preliminary, Resulted No growth after 24 hours . All specim... Discharge Medications Scheduled Aspirin (Aspirin) 81 Mg Tab.chew, 81 MG PO DAILY, (Reported) Atorvastatin Calcium (Atorvastatin Calcium) 80 Mg Tablet, 80 MG PO QHS, (Reported) Bupropion Hcl (Bupropion Xl) 150 Mg Tab.er.24h, 150 MG PO DAILY, (Reported) Carvedilol (Carvedilol) 3.125 Mg Tablet, 3.125 MG PO BID, (Reported) Clopidogrel Bisulfate (Plavix) 75 Mg Tablet, 75 MG PO DAILY, (Reported) Dapagliflozin Propanediol (Farxiga) 10 Mg Tablet, 10 MG PO DAILY, (Reported) Escitalopram Oxalate (Lexapro) 20 Mg Tablet, 10 MG PO DAILY, (Reported) Ezetimibe (Ezetimibe) 10 Mg Tablet, 10 MG PO DAILY, (Reported) Ferrous Sulfate (Ferrous Sulfate) 325 Mg Tablet, 325 MG PO DAILY, (Reported) Insulin Degludec (Tresiba Flextouch U-200) 200 Unit/1 Ml Insuln.pen, 72 UNIT SC BID, (Reported) Lisinopril (Lisinopril) 5 Mg Tab, 5 MG PO DAILY, (Reported) Loratadine (Loratadine) 10 Mg Tab, 10 MG PO DAILY, (Reported) Metoclopramide HCl (Metoclopramide HCl) 10 Mg Tablet, 10 MG PO BIDWM, (Reported) Nitrofurantoin Monohyd/M-Cryst (Nitrofurantoin [place]-Mcr 100 mg) 100 Mg Capsule, 100 MG PO BID Omeprazole (Omeprazole) 40 Mg Cap, 40 MG PO BID, (Reported) Pentoxifylline (Pentoxifylline) 400 Mg Tabcr, 400 MG PO TID, (Reported) Scheduled PRN Albuterol Sulfate (Ventolin Hfa) 108 Mcg/Act Aer, 2 PUFF INH Q4H PRN for SHORTNESS OF BREATH, (Reported) Cyclobenzaprine HCl (Cyclobenzaprine HCl) 5 Mg Tab, 5 MG PO QHS PRN for MUSCLE SPASMS, (Reported) Nystatin (Nystatin Powder) 15 Gm Powder, 1 APPLIC TOP BID PRN for RASH/ITCHING, (Reported) APPLY TO ABDOMINAL FOLDS Allergies Coded Allergies: insulin glargine (Verified Allergy, Intermediate, Basalin: severe itching for 8 months while on it, 05/08/20) Grapefruit (Verified Allergy, Unknown, 05/08/20) varenicline (Verified Adverse Reaction, Intermediate, DEPRESSION, 05/08/20) canagliflozin (Verified Adverse Reaction, Mild, yeast infection, 05/08/20) SARAH LOJA MD Nov 11, 2020 08:46
[2020-11-11] MEDS ORDERED: CEPH250T PO (08:53)
[2020-11-11] MEDS ORDERED: CEPHALEXIN 250MG CAPSULE PO SCH ×2 (09:00)
[2020-11-11] MEDS ORDERED: NITROFURANTOIN (MACROBID) 100 MG CAP PO SCH (09:00)
--- NOTE | 2020-11-11 20:20 | ECGEPIP ---
[facility] - ED Test Date: 2020-11-10 Pat Name: TATIANNA LAMB Department: Room: - [facility]: LR : 1965 Requested By: Kartik Huddleston Order Number: [id number] Reading MD: Rena Lopez Measurements Intervals [place] Rate: 86 P: 55 HI: 186 QRS: 2 QRSD: 98 T: 92 QT: 368 QTc: 440 Interpretive Statements Normal sinus rhythm NSTTW abnormalities Low voltage QRS prwp similar 08/30/20 Electronically Signed on 11-11-2020 20:19:48 EDT by Rena Lopez
== END 2020-11-11 12:30 | disposition home health service (06) | DRG 351 ==
LOC: M ED 23:52 → M ED INP 11-10 10:03 → ENRESERV 11-10 11:55 → M PCU 11-10 15:18
PROVIDERS: ADMIT Internal Medicine; ATTEND Internal Medicine
DX: S93.401A Sprain of unspecified ligament of right ankle, initial encounter (principal); G92 Toxic encephalopathy; N17.9 Acute kidney failure, unspecified; E11.51 Type 2 diabetes mellitus with diabetic peripheral angiopathy without gangrene; I25.10 Atherosclerotic heart disease of native coronary artery without angina pectoris; Z95.2 Presence of prosthetic heart valve; J44.9 Chronic obstructive pulmonary disease, unspecified; I10 Essential (primary) hypertension; F17.200 Nicotine dependence, unspecified, uncomplicated; E66.9 Obesity, unspecified; G47.33 Obstructive sleep apnea (adult) (pediatric); W18.30XA Fall on same level, unspecified, initial encounter; Y92.009 Unspecified place in unspecified non-institutional (private) residence as the place of occurrence of the external cause; Z79.899 Other long term (current) drug therapy; Z79.82 Long term (current) use of aspirin; Z79.4 Long term (current) use of insulin; Z91.018 Allergy to other foods; Z88.8 Allergy status to other drugs, medicaments and biological substances; F41.9 Anxiety disorder, unspecified; F32.9 Major depressive disorder, single episode, unspecified; Z91.19 Patient's noncompliance with other medical treatment and regimen; N39.0 Urinary tract infection, site not specified

== ENCOUNTER → 2020-11-22 | Outpatient (REF) | payer OTHER ==
[~2020-11-22] MED LIST changes: +CEPH250T PO; -CLIN150C15 PO; +CLIN150C17 PO; +EZET10TA21 PO; +NITR100C2 PO
[2020-11-22 12:37] LABS: BASO # 0.1 10^3/uL (0.0-0.2); BASO % 0.6 % (0.0-1.0); EOS # 0.2 10^3/uL (0.0-0.5); EOS % 1.2 % (0.0-3.0); HEMATOCRIT 50.5 % (36.0-47.0); HEMOGLOBIN 15.9 g/dl (12.0-15.5); LYMPH # 1.8 10^3/uL (1.5-5.0); LYMPH % 12.8 % (24.0-44.0); MEAN CORPUSCULAR HGB CONC 31.5 g/dl (32.0-36.5); MEAN CORPUSCULAR VOLUME 88.9 fl (80.0-96.0); MONO # 0.5 10^3/uL (0.0-0.8); MONO % 3.6 % (2.0-8.0); NEUTROPHILS # 11.6 10^3/uL (1.5-8.5); PLATELET COUNT, AUTOMATED 249 10^3/uL (150-450); RED BLOOD COUNT 5.68 10^6/uL (4.00-5.40); WHITE BLOOD COUNT 14.3 10^3/uL (4.0-10.0)
[2020-11-22 12:55] LABS: HEMOGLOBIN A1c 10.8 %
[2020-11-22 12:59] LABS: ALBUMIN 2.9 GM/DL (3.2-5.2); ALT/SGPT 26 U/L (12-78); BILIRUBIN,TOTAL 0.2 MG/DL (0.2-1.0); BLOOD UREA NITROGEN 17 MG/DL (7-18); CALCIUM LEVEL 8.9 MG/DL (8.5-10.1); CARBON DIOXIDE LEVEL 30 MEQ/L (21-32); CHLORIDE LEVEL 101 MEQ/L (98-107); CREATININE FOR GFR 1.02 MG/DL (0.55-1.30); GLOMERULAR FILTRATION RATE > 60.0 (>51); GLUCOSE, FASTING 302 MG/DL (70-100); POTASSIUM SERUM 5.1 MEQ/L (3.5-5.1); SODIUM LEVEL 137 MEQ/L (136-145); TOTAL PROTEIN 6.9 GM/DL (6.4-8.2)
[2020-11-22 13:06] LABS: CREATININE, URINE 43.6 MG/DL; MAU/CREAT RATIO 607.7 MCG/MG (0.0-30.0)
== END ==
LOC: M LAB REF 11:35
PROVIDERS: ATTEND Physician Assistant
DX: E11.40 Type 2 diabetes mellitus with diabetic neuropathy, unspecified (principal)

== ENCOUNTER → 2020-11-25 | Outpatient (REF) | payer OTHER ==
[2020-11-25 17:47] LABS: APPEARANCE, URINE CLEAR (CLEAR); BACTERIA, URINE AUTO NEGATIVE (NEGATIVE); BILIRUBIN, URINE AUTO NEGATIVE (NEGATIVE); BLOOD, URINE BLOOD NEGATIVE (NEGATIVE); COLOR, URINE YELLOW (YELLOW); GLUCOSE, URINE (UA) AUTO 3+ mg/dL (NEGATIVE); KETONE, URINE AUTO NEGATIVE (NEGATIVE); LEUKOCYTE ESTERASE, URINE AUTO NEGATIVE (NEGATIVE); NITRITE, URINE AUTO NEGATIVE (NEGATIVE); PROTEIN, URINE AUTO NEGATIVE (NEGATIVE); RBC, URINE AUTO 1 /HPF (0-3); SPECIFIC GRAVITY URINE AUTO 1.021 (1.002-1.035); SQUAMOUS EPITHELIAL CELL UR AU 1 /HPF (0-6); UROBILINOGEN, URINE AUTO 0.2 mg/dL (0.0-2.0); WBC, URINE AUTO 3 /HPF (0-3)
== END ==
LOC: M LAB REF 16:58
PROVIDERS: ATTEND Physician Assistant
DX: N39.0 Urinary tract infection, site not specified (principal)

== ENCOUNTER → 2021-01-16 | Outpatient (CLI) | payer OTHER | LOC: M PAIN 08:30 | PROVIDERS: ATTEND Anesthesiology | DX: G62.9 Polyneuropathy, unspecified (principal); M54.5 Low back pain; G89.29 Other chronic pain; E11.9 Type 2 diabetes mellitus without complications; K21.9 Gastro-esophageal reflux disease without esophagitis; G47.33 Obstructive sleep apnea (adult) (pediatric); J44.9 Chronic obstructive pulmonary disease, unspecified; F17.200 Nicotine dependence, unspecified, uncomplicated; Z86.14 Personal history of Methicillin resistant Staphylococcus aureus infection; Z86.59 Personal history of other mental and behavioral disorders; Z88.8 Allergy status to other drugs, medicaments and biological substances; Z91.018 Allergy to other foods; Z79.01 Long term (current) use of anticoagulants; Z79.4 Long term (current) use of insulin; Z79.82 Long term (current) use of aspirin; Z79.899 Other long term (current) drug therapy ==

== ENCOUNTER 2021-02-11 08:39 | Emergency (ER) | payer OTHER ==
[~2021-02-11] VITALS: Ht 162.6 cm; Wt 86.5 kg
[~2021-02-11 08:39] MED LIST changes: -CYMB60CA3 PO; +CYMB60CA4 PO; +DOXY-443 PO; -DOXY1CAP62 PO
[2021-02-11] MEDS ORDERED: FERR325T19 (08:48)
--- OUTSIDE RECORDS SUMMARY | 2021-02-11 08:50 | CCD ---
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 Active confirmed 946342094 Problem Type 2 diabetes mellitus with foot ulcer E11.621 Active confirmed 577515057 Problem Non-pressure chronic ulcer o f other part of unspecified foot with unspecified severity L97.509 Active confirmed 797994132 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 Activ e confirmed [id number] ALLERGIES No Known Allergies ENCOUNTERS from 1965 to 2020-11-20 Encounter Location Date Provider Diagnosis [facility] [address] [place] [address] [place] [address] Oct, Yesenia Luke Type 2 diabetes mellitus wit h foot ulcer E11.621 and 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 Alcohol Screening: Question Answer Notes Did you have a drink containing alcohol in the past year? No Points 0 Interpretation Negative Tobacco Use: Question Answer Notes Are you a: current smoker using patch/pill REASON FOR REFERRAL No Information VITAL SIGNS Weight 180 lbs Oct, Weight-kg per pt kg Oct, Height 64 in Oct, BMI 30.89 kg/m2 Oct, Heart Rate 74 /min Oct, Respiratory Rate 18 /min Oct, Temperature 98.3 degrees Fahrenheit Oct, Oximetry 98 Oct, Blood pressure systolic 96 mm Hg Oct, Blood pressure diastolic 50 mm Hg Oct, MEDICATIONS Medication SIG (Take, Route, Frequency, Duration) Notes Start Da te End Date Status buPROPion HCl 100 MG 1 tablet Orally Twice a day for 30 day(s) Active Insulin Lispro 100 UNIT/ML as directed Subcutaneous Not-Taking Cyclobenzaprine HCl 5 MG 1 tablet [...] day(s) Active Tresiba 200 U/mL Not-Taki ng Albuterol Sulfate (2.5 MG/3ML) 0.083% 3 ml as needed Inhalation ilene ry 6 hrs Not-Taking oxyCODONE-Acetaminophen 5-325 MG 1 tablet as needed Orally every 6 hr s Not-Taking Pentoxifylline - as directed Active Lisinopril 5 MG 1 tablet Orally Once a day for 30 day(s) Active vicodin 1 tab Oral for 14 days No t-Taking Multivitamin - 1 tablet Orally Once a day for 30 day(s) Not-Taking PriLOSEC 10 MG as directed Orally Ac tive Jardiance 10 MG 1 tablet Orally Once a day for 30 day(s) Not-Taking Metoclopramide HCl 10 MG 1 tablet before meals Orally Twice a day for 30 day(s) Active Tresiba FlexTouch 200 UNIT/ML 72 units Subcutaneous BID Active Docusate Sodium 100 MG 1 capsule as needed Orally Once a day for 30 day(s) Not-Taking metroNIDAZOLE 250 MG 1 tablet Orally Three times a day for 10 day(s) Not-Taking Farxiga 10 MG 1 tablet Orally Once a day for 30 day(s) Active Aspirin 325 MG 1 tablet Orally Once a day for 30 day(s) Active Lyrica 150 MG 1 capsule Orally Once a day Not-Taking Zetia 10 MG 1 tablet Orally Once a day for 30 day(s) Active HYDROcodone-Acetaminophen 5-325 MG 1 tablet as needed Orally every 6 hrs Not-Taking Nystatin - as directed Not-Taking Trulicity 0.75 MG/0.5ML as directed Subcutaneous Not-Taking Steglatro 15 MG 1 tablet Orally Once a day for 30 day(s) Not-Taking Ferrous Sulfate 325 (65 Fe) MG 1 tablet Orally Once a day for 30 day( s) Active Zofran 4 MG 1 tablet Orally Once a day for 30 day(s) Not-Taking Ciprofloxacin HCl 750 MG 1 tablet Orally every 12 hrs for 10 day(s) Not-Taking Nitrofurantoin Monohyd Macro 100 MG TAKE ONE CAPSULE B Y MOUTH TWICE A DAY WITH FOOD UNTIL GONE Oral for 5 Activ e Cymbalta 60 MG 1 capsule Orally Once a day for 30 day(s) Not-Taking Albuterol Sulfate HFA 108 (90 Base) MCG/ACT INHALE ONE TO TWO PUFFS BY MOUTH EVERY 4 TO 6 HOURS NEEDED FOR SHORTNESS OF BREATH Inhalation for 30 Active Coreg 3.125 MG 1 tablet with food Orally Twice a day for 30 day(s) Active PROCEDURES from 1965 to 2020-11-20 Procedure Date Ordered Result Body Site Medication: 4% Lidocaine topical cream (Anecream) 5gm 2020-11-15 N/A RESULTS No Results REASON FOR VISIT Left Foot Wound MEDICAL (GENERAL) HISTORY Type Description Date Medical History DM Medical History HTN Surgical History Debridment in OR with Dr. Talamantes 12/2019 Surgical History Triple Bypass 2015 Surgical History angioplasty 06/2019 Surgical History ANGIOPLASTY OF LT LEG 02/05/2020 Surgical History ANGIOPLASTY OF RT LEG 02/12/2020 Surgical History WIRE REPLACAEMENT IN HEART 02/06/2020 Surgical History LLE BYPASS 01/2020 Surgical History ANGIOGRAM 07/2020 Hospitalization History hyperglycemia 12/2019 Hospitalization History Diabetic coma 2015 Hospitalization History SURGERY RELATED 2019 Hospitalization History infection in right hip wound 2019 Hospitalization History PANCREATITIS 2020 Hospitalization History Sprained ankle 11/09/20-11/11/20 Goals Section No Information Health Concerns No Information MEDICAL EQUIPMENT No Information MENTAL STATUS No Information FUNCTIONAL STATUS No Information ASSESSMENTS Encounter Date Diagnosis Assessment Notes Treatment Notes Treatm ent Clinical Notes Oct, Type 2 diabetes mellitus with foot ulcer (ICD-10 - E11.621) Dressing changes 3x a week. 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 The dressing should follow those documented in the procedure note Next Appt Details 1 Week Reason: Provider Name:Yesenia Kaleigh Marly, 11-29 02:30:00 PM, [address], , [place], [address], Insurance Providers Payer Name Payer Address Payer Phone Insured Name Patient Relati onship to Insured Coverage Start Date Coverage End Date [facility] COMM[facility] [facility]AN [facility] [address] [facility] [phone] TATIANNA LAMB self
--- OUTSIDE RECORDS SUMMARY | 2021-02-11 08:50 | CCD ---
Author Author [facility] Organization 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 Active confirmed Problem Non-pressure chronic ulcer o f other part of unspecified foot with unspecified severity L97.509 Active confirmed [id number] Problem Type 2 diabetes mellitus with foot ulcer E11.621 Active confirmed 260506184 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 Alcohol Screening: Question Answer Notes Did you have a drink containing alcohol in the past year? No Points 0 Interpretation Negative Tobacco Use: Question Answer Notes Are you a: current smoker using patch/pill REASON FOR REFERRAL No Information VITAL SIGNS Weight 180 lbs Nov, Height 64 in Nov, BMI 30.89 kg/m2 Nov, Heart Rate 83 /min Nov, Respiratory Rate 19 /min Nov, Temperature 98.3 degrees Fahrenheit Nov, Oximetry 95 Nov, Blood pressure systolic 102 mm Hg Nov, Blood pressure diastolic 59 mm Hg Nov, MEDICATIONS Medication SIG (Take, Route, Frequency, Duration) Notes Start Da te End Date Status Ciprofloxacin HCl 750 MG 1 tablet Orally every 12 hrs for 10 day(s) Not-Taking Lisinopril 5 MG 1 tablet Orally Once a day for 30 day(s) Active buPROPion HCl 100 MG 1 tablet Orally Twice a day for 30 day(s) Active Albuterol Sulfate HFA 108 (90 Base) MCG/ACT INHALE ONE TO TWO PUFFS BY MOUTH EVERY 4 TO 6 HOURS NEEDED FOR SHORTNESS OF BREATH Inhalation for 30 Active HYDROcodone-Acetaminophen 5-325 MG 1 tablet as needed Orally every 6 hrs Not-Taking metroNIDAZOLE 250 MG 1 tablet Orally Three times a day for 10 day(s) Not-Taking PriLOSEC 10 MG as directed Orally Ac tive Loratadine 10 MG 1 tablet Orally Once a day for 30 day(s) Active Plavix 75 MG 1 tablet Orally Once a day for 30 day(s) Active Coreg 3.125 MG 1 tablet with food Orally Twice a day for 30 day(s) Active Jardiance 10 MG 1 tablet Orally Once a day for 30 day(s) Not-Taking Multivitamin - 1 tablet Orally Once a day for 30 day(s) Not-Taking Metoclopramide HCl 10 MG 1 tablet before meals Orally Twice a day for 30 day(s) Active Docusate Sodium 100 MG 1 capsule as needed Orally Once a day for 30 day(s) Not-Taking Albuterol Sulfate (2.5 MG/3ML) 0.083% 3 ml as needed Inhalation ilene ry 6 hrs Not-Taking oxyCODONE-Acetaminophen 5-325 MG 1 tablet as needed Orally every 6 hr s Not-Taking Steglatro 15 MG 1 tablet Orally Once a day for 30 day(s) Not-Taking Aspirin 325 MG 1 tablet Orally Once a day for 30 day(s) Active Cyclobenzaprine HCl 5 MG 1 tablet at bedtime as neede d Orally Once a day for 30 day(s) Active Insulin Lispro 100 UNIT/ML as directed Subcutaneous Not-Taking Nitrofurantoin Monohyd Macro 100 MG TAKE ONE CAPSULE B Y MOUTH TWICE A DAY WITH FOOD UNTIL GONE Oral for 5 Activ e Lyrica 150 MG 1 capsule Orally Once a day Not-Taking Zetia 10 MG 1 tablet Orally Once a day for 30 day(s) Active Nystatin - as directed Not-Taking Zofran 4 MG 1 tablet Orally Once a day for 30 day(s) Not-Taking Ferrous Sulfate 325 (65 Fe) MG 1 tablet Orally Once a day for 30 day( s) Active Atorvastatin Calcium 80 MG 1 tablet Orally Once a day for 30 day(s) Active Farxiga 10 MG 1 tablet Orally Once a day for 30 day(s) Active Cymbalta 60 MG 1 capsule Orally Once a day for 30 day(s) Not-Taking Tresiba FlexTouch 200 UNIT/ML 72 units Subcutaneous BID Active Lexapro 10 MG 1 tablet Orally Once a day for 30 day(s) Active Pentoxifylline - as directed Active Tresiba 200 U/mL Not-Taki ng vicodin 1 tab Oral for 14 days No t-Taking Trulicity 0.75 MG/0.5ML as directed Subcutaneous Not-Taking PROCEDURES from 1965 to 2020-12-13 Procedure Date Ordered Result Body Site Medication: 4% Lidocaine topical cream (Anecream) 5gm 2020-12-12 N/A RESULTS No Results REASON FOR VISIT [...] Notes Treatment Notes Treatm ent Clinical Notes Nov, Type 2 diabetes mellitus with foot ulcer (ICD-10 - E11.621) Dressing changes 3x a week. 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 The dressing should follow those documented in the procedure note Next Appt Details 1 Week Reason: Provider Name:Yesenia Kaleigh Anthonys, 12-26 11:00:00 AM, [address], , [place], [address], Insurance Providers Payer Name Payer Address Payer Phone Insured Name Patient Relati onship to Insured Coverage Start Date Coverage End Date [facility] [employer] [facility] [address] [facility] [phone] [phone] TATIANNA LAMB self
--- OUTSIDE RECORDS SUMMARY | 2021-02-11 08:50 | CCD ---
Author Author [facility] Organization 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 Active confirmed Problem Non-pressure chronic ulcer o f other part of unspecified foot with unspecified severity L97.509 Active confirmed 287444335 Problem Type 2 diabetes mellitus with foot ulcer E11.621 Active confirmed 491288637 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 Activ e confirmed 353466434 Problem 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 Alcohol [...] a day for 30 day(s) Active PROCEDURES No Information RESULTS No Results REASON FOR VISIT No show [facility] MEDICAL (GENERAL) HISTORY Type Description Date Medical [...] Insured Coverage Start Date Coverage End Date [facility] COMM[facility] PLAN [facility] [address] [facility] [address] [address] [phone] TATIANNA LAMB self
--- OUTSIDE RECORDS SUMMARY | 2021-02-11 08:50 | CCD ---
Author Author [facility] Organization [facility] Address Unknown Phone Unavailable Care Team Providers Care Profiler Name Role Phone Bennie Childs Unavailable PROBLEMS Type Condition ICD9-CM Code [id number] Code Onset Dates Condition S tatus W/U Status Risk SNOMED Code Notes Problem Diabetes mellitus with foot ulcer E11.621 Active confirmed 8152979869937 Problem Type 2 diabetes mellitus with foot ulcer E11.621 Active confirmed 339058859 Problem Non-pressure chronic ulcer o f other part of unspecified foot with unspecified severity L97.509 Active confirmed 243647540 Problem Neuropathy G62.9 Active confirmed 414307447 Problem Other chronic pain G89.29 Active confirmed 8 3723143 Problem halfway (current) use of insulin Z79.4 Activ e confirmed 798613433 Problem 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 Active confirmed 972500372 Problem 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 Active confirmed 711792158 Problem 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 Active confirmed ALLERGIES Allergen (clinical drug ingredient) Drug/Non Drug Allergy do cumented on EMR Reaction Allergy Type Onset Date Status Grapefruit Flavor(ND Code:[address]-43) D/T PLAVIX Drug Allergy Active dulaglutide Trulicity(NDC Code:[address]-17) CAUSED PROBLEM S WITH PANCREAS Drug Allergy Active ENCOUNTERS from 1967 to 2021-01-19 Encounter Location Date Provider Diagnosis [facility] Pain Clinic [address] [phone] [place] [address] Dec, Bennie Childs Neuropathy G62.9 ; L ow back pain M54.5 and Other chronic pain G89.29 IMMUNIZATIONS Vaccine Route Administration Date Status Influenza 18 yrs & older Flublok Unknown Jan 26, 2020 Others SOCIAL HISTORY Tobacco Use: Social History Observation Description Date Details (start date - stop date) Current Smoker Sex Assigned At : Social History Observation Description Sex Assigned At Unknown Education: Question Answer Notes Level of Education: Finished High School Language: Question Answer Notes Languages spoken: Italian Sabianism: Question Answer Notes Sabianism 21 Buddhism No orthodox beliefs that would impact health care. Alcohol Screening: Question Answer Notes Did you have a drink containing alcohol in the past year? No Points 0 Interpretation Negative Tobacco Use: Question Answer Notes Are you a: current every day smoker using patch/pil l REASON FOR REFERRAL No Information VITAL SIGNS Weight 190.0 lbs Dec, Weight-kg 86.18 kg Dec, Height 64 in Dec, BMI 32.61 kg/m2 Dec, Heart Rate 98 /min Dec, Respiratory Rate 18 /min Dec, Temperature 97.6 degrees Fahrenheit Dec, Oximetry 96% Dec, Blood pressure systolic 96 mm Hg Dec, Blood pressure diastolic 64 mm Hg Dec, MEDICATIONS Medication SIG (Take, Route, Frequency, Duration) Notes Start Da te End Date Status Jardiance 10 MG 1 tablet Orally Once a day for 30 day(s) Not-Taking buPROPion HCl 100 MG 1 tablet Orally Twice a day for 30 day(s) Active Lyrica 300 MG 1 capsule Orally Twice a day Active Lisinopril 5 MG 1 tablet Orally Once a day for 30 day(s) Active metroNIDAZOLE 250 MG 1 tablet Orally Three times a day for 10 day(s) Not-Taking Zofran 4 MG 1 tablet Orally Once a day for 30 day(s) Not-Taking Albuterol Sulfate (2.5 MG/3ML) 0.083% 3 ml as needed Inhalation ilene ry 6 hrs Not-Taking Steglatro 15 MG 1 tablet Orally Once a day for 30 day(s) Not-Taking Cyclobenzaprine HCl 5 MG 1 tablet at bedtime as neede d Orally Once a day for 30 day(s) Active Loratadine 10 MG 1 tablet Orally Once a day for 30 day(s) Active Multivitamin - 1 tablet Orally Once a day for 30 day(s) Not-Taking Insulin Lispro 100 UNIT/ML as directed Subcutaneous Not-Taking Nystatin - as directed Not-Taking Plavix 75 MG 1 tablet Orally Once a day for 30 day(s) Active Ciprofloxacin HCl 750 MG 1 tablet Orally every 12 hrs for 10 day(s) Not-Taking Docusate Sodium 100 MG 1 capsule as needed Orally Once a day for 30 day(s) Not-Taking Atorvastatin Calcium 80 MG 1 tablet Orally Once a day for 30 day(s) Active Metoclopramide HCl 10 MG 1 tablet before meals Orally Twice a day for 30 day(s) Active Lexapro 10 MG 1 tablet Orally Once a day for 30 day(s) Active Albuterol Sulfate HFA 108 (90 Base) MCG/ACT INHALE ONE TO TWO PUFFS BY MOUTH EVERY 4 TO 6 HOURS NEEDED FOR SHORTNESS OF BREATH Inhalation for 30 Active PriLOSEC 10 MG as directed Orally Ac tive Ferrous Sulfate 325 (65 Fe) MG 1 tablet Orally Once a day for 30 day( s) Active Pentoxifylline - as directed Active Trulicity 0.75 MG/0.5ML as directed Subcutaneous Not-Taking oxyCODONE-Acetaminophen 5-325 MG 1 tablet as needed Orally every 6 hr s Not-Taking HYDROcodone-Acetaminophen 5-325 MG 1 tablet as needed Orally every 6 hrs Not-Taking Cymbalta 60 MG 1 capsule Orally Once a day for 30 day(s) Not-Taking Aspirin 81 MG 1 tablet Orally Once a day Active vicodin 1 tab Oral for 14 days No t-Taking Tresiba 200 U/mL Not-Taki ng Nitrofurantoin Monohyd Macro 100 MG TAKE ONE CAPSULE B Y MOUTH TWICE A DAY WITH FOOD UNTIL GONE Oral for 5 Activ e Coreg 3.125 MG 1 tablet with food Orally Twice a day for 30 day(s) Active Farxiga 10 MG 1 tablet Orally Once a day for 30 day(s) Active Tresiba FlexTouch 200 UNIT/ML 72 units Subcutaneous BID Active Zetia 10 MG 1 tablet Orally Once a day for 30 day(s) Active PROCEDURES No Information RESULTS No Results REASON FOR VISIT CHRONIC LOW BACK AND NEUROPATHY OF LE MEDICAL (GENERAL) HISTORY Type Description Date Medical History DM Medical History HTN Medical History Esophageal reflux 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 [...] Notes Treatment Notes Treatm ent Clinical Notes Dec, Neuropathy (ICD-10 - G62.9) Provided information on [facility] Armand MCCLAIN Tatianna scored high on her PHQ-9 screening, I discussed these results with her and she denies any thoughts of harm herself or others, verbalized understanding of the importance of seeking immediate medical attention/going to the emergency department should these thoughts arise. She shared she was in the process of establish mental health care and was provided with the walk in clinic information. Dr. Childs and I discussed pain management options with the patient including a dorsal column stimulator, possible injection therapy, medicinal marijuana and medication management. Tatianna wishes to think over her treatment options. We will send a Doctor to Doctor agreement to her primary care provider, Baljinder Brown to determine his level of comfort with medication management. We will follow up with Tatianna once her doctor to doctor agreement is available to futher discuss her options. Liane Doherty SPLITTER HEAD-C Dec, Low back pain (ICD-10 - M54.5) Dec, Other chronic pain (ICD-10 - G89.29) Dec, Other NPC, Patient sco red positive for PHQ2 and 9. Patient denies SI/HI patient is able to contract for safety, patient given SB walk in hours, Jack Marcelino BONE CRUSHER aware and will discuss further with patient. Alva Cisneros SPRAY DRY OPERATOR. PLAN OF TREATMENT Treatment Notes Assessment Notes Clinical Notes Neuropathy Provided information on [facility] Armand MCCLAIN Tatianna scored high on her PHQ-9 screeni daphne, I discussed these results with her and she denies any thoughts of harm herself or others, verbalized understanding of the importance of seeking immediate medical attention/going to the emergency department should these thoughts arise. She shared she was in the process of establish mental health care and was provided with the walk in clinic information.Dr. Childs and I discussed pain management options with the patient including a dorsal column stimulator, possible injection therapy, medicinal marijuana and medication management. Tatianna wishes to think over her treatment options. We will send a Doctor to Doctor agreement to her primary care provider, Baljinder Brown to determine his level of comfort with medication management. We will follow up with Tatianna once her doctor to doctor agreement is available to futher discuss her options.Liane Doherty SPLITTER HEAD-C Next Appt Details Once Doctor to Doctor agreement is recei tariq Reason:Discuss medication mangement/procedures/doctor to doctor agreement Provider Name:Yesenia Kaleigh Marly, 01-23 10:00:00 AM, [address] [facility], , [place], [address], Follow Up:Once Doctor to Doctor agreement is receivedDiscuss medication mangement/procedures/doctor to doctor agreement Insurance Providers Payer Name Payer Address Payer Phone Insured Name Patient Relati onship to Insured Coverage Start Date Coverage End Date [facility] COMM[facility]ITY PLAN [facility] [address] [facility] [phone] TATIANNA LAMB self
--- OUTSIDE RECORDS SUMMARY | 2021-02-11 08:50 | CCD ---
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 Active confirmed Problem Non-pressure chronic ulcer o f other part of unspecified foot with unspecified severity L97.509 Active confirmed 480767125 Problem Type 2 diabetes mellitus with foot ulcer E11.621 Active confirmed 468599970 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 Alcohol Screening: Question Answer Notes Did you have a drink containing alcohol in the past year? No Points 0 Interpretation Negative Tobacco Use: Question Answer Notes Are you a: current smoker using patch/pill REASON FOR REFERRAL No Information VITAL SIGNS Weight 185 lbs Dec, Weight-kg 83.92 kg Dec, Height 64 in Dec, BMI 31.75 kg/m2 Dec, Heart Rate 100 /min Dec, Respiratory Rate 21 /min Dec, Temperature 95.4 degrees Fahrenheit Dec, Oximetry 95% Dec, Blood pressure systolic 123 mm Hg Dec, Blood pressure diastolic 75 mm Hg Dec, MEDICATIONS Medication SIG (Take, Route, Frequency, Duration) Notes Start Da te End Date Status PriLOSEC 10 MG as directed Orally Ac tive Multivitamin - 1 tablet Orally Once a day for 30 day(s) Not-Taking metroNIDAZOLE 250 MG 1 tablet Orally Three times a day for 10 day(s) Not-Taking Albuterol Sulfate (2.5 MG/3ML) 0.083% 3 ml as needed Inhalation ilene ry 6 hrs Not-Taking buPROPion HCl 100 MG 1 tablet Orally Twice a day for 30 day(s) Active Atorvastatin Calcium 80 MG 1 tablet Orally Once a day for 30 day(s) Active Trulicity 0.75 MG/0.5ML as directed Subcutaneous Not-Taking Jardiance 10 MG 1 tablet Orally Once a day for 30 day(s) Not-Taking Docusate Sodium 100 MG 1 capsule as needed Orally Once a day for 30 day(s) Not-Taking vicodin 1 tab Oral for 14 days No t-Taking Lisinopril 5 MG 1 tablet Orally Once a day for 30 day(s) Active Steglatro 15 MG 1 tablet Orally Once a day for 30 day(s) Not-Taking HYDROcodone-Acetaminophen 5-325 MG 1 tablet as needed Orally every 6 hrs Not-Taking Metoclopramide HCl 10 MG 1 tablet before meals Orally Twice a day for 30 day(s) Active Ferrous Sulfate 325 (65 Fe) MG 1 tablet Orally Once a day for 30 day( s) Active Cyclobenzaprine HCl 5 MG 1 tablet at bedtime as neede d Orally Once a day for 30 day(s) Active Lyrica 150 MG 1 capsule Orally Once a day Not-Taking Nitrofurantoin Monohyd Macro 100 MG TAKE ONE CAPSULE B Y MOUTH TWICE A DAY WITH FOOD UNTIL GONE Oral for 5 Activ e Tresiba 200 U/mL Not-Taki ng Farxiga 10 MG 1 tablet Orally Once a day for 30 day(s) Active Aspirin 325 MG 1 tablet Orally Once a day for 30 day(s) Active Plavix 75 MG 1 tablet Orally Once a day for 30 day(s) Active Insulin Lispro 100 UNIT/ML as directed Subcutaneous Not-Taking Cymbalta 60 MG 1 capsule Orally Once a day for 30 day(s) Not-Taking Loratadine 10 MG 1 tablet Orally Once a day for 30 day(s) Active oxyCODONE-Acetaminophen 5-325 MG 1 tablet as needed Orally every 6 hr s Not-Taking Zofran 4 MG 1 tablet Orally Once a day for 30 day(s) Not-Taking Lexapro 10 MG 1 tablet Orally Once a day for 30 day(s) Active Nystatin - as directed Not-Taking Pentoxifylline - as directed Active Zetia 10 MG 1 tablet Orally Once a day for 30 day(s) Active Albuterol Sulfate HFA 108 (90 Base) MCG/ACT INHALE ONE TO TWO PUFFS BY MOUTH EVERY 4 TO 6 HOURS NEEDED FOR SHORTNESS OF BREATH Inhalation for 30 Active Ciprofloxacin HCl 750 MG 1 tablet Orally every 12 hrs for 10 day(s) Not-Taking Coreg 3.125 MG 1 tablet with food Orally Twice a day for 30 day(s) Active Tresiba FlexTouch 200 UNIT/ML 72 units Subcutaneous BID Active PROCEDURES from 1965 to 2021-01-10 Procedure Date Ordered Result Body Site Medication: 4% Lidocaine topical cream (Anecream) 5gm 2021-01-09 N/A RESULTS No Results REASON FOR VISIT left foot MEDICAL (GENERAL) HISTORY Type Description Date Medical [...] Treatment Notes Treatm ent Clinical Notes Dec, Type 2 diabetes mellitus with foot ulcer (ICD-10 - E11.621) Dressing changes 3x a week. 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 The dressing should follow those documented in the procedure note Next Appt Details 1 Week Reason: Provider Name:Yesenia Luke, 01-23 10:00:00 AM, [address], , [place], [address], Provider Name:Bennie Childs, 2021-04-24 08:30:00 AM, [address], , [place], [address], Insurance Providers Payer Name Payer Address Payer Phone Insured Name Patient Relati onship to Insured Coverage Start Date Coverage End Date [facility]AN [facility] [address] [facility] [address] TATIANNA LAMB self
--- OUTSIDE RECORDS SUMMARY | 2021-02-11 08:50 | CCD ---
Author Author [facility] Organization [facility] Address Unknown Phone Unavailable Care Team Providers Care Meat Packager Name Role Phone Bennie Childs Unavailable PROBLEMS Type Condition ICD9-CM Code [id number] Code Onset Dates Condition S tatus W/U Status Risk SNOMED Code Notes Problem Diabetes mellitus with foot ulcer E11.621 Active confirmed [id number] Problem Type 2 diabetes mellitus with foot ulcer E11.621 Active confirmed 995116805 Problem Non-pressure chronic ulcer o f other part of unspecified foot with unspecified severity L97.509 Active confirmed 299885521 Problem Neuropathy G62.9 Active confirmed 071356572 Problem Other chronic pain G89.29 Active confirmed 8 5192599 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 Activ e confirmed 013007018 Problem 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 Active confirmed 501730391 Problem 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 Active confirmed 501120840 Problem 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 Active confirmed ALLERGIES Allergen (clinical drug ingredient) Drug/Non Drug Allergy do cumented on EMR Reaction Allergy Type Onset Date Status Grapefruit Flavor(ND Code:[address]-76) D/T PLAVIX Drug Allergy Active dulaglutide Trulicity(ND Code:[address]-55) CAUSED PROBLEM S WITH PANCREAS Drug Allergy Active ENCOUNTERS from 1965 to 2021-01-20 Encounter Location Date Provider Diagnosis [facility] Pain Clinic [address] [phone] [place] [address] 04 Jan, 2021 Bennie Childs IMMUNIZATIONS Vaccine Route Administration Date Status Influenza 18 yrs & older Flublok Unknown Jan 26, 2020 Others SOCIAL HISTORY Tobacco Use: Social History Observation Description Date Details (start date - stop date) Current Smoker Sex Assigned At : Social History Observation Description Sex Assigned At Unknown Education: Question Answer Notes Level of Education: Finished High School Language: Question Answer Notes Languages spoken: [place] Korean Jain: Question Answer Notes Jain 21 Worship No spiritism beliefs that would impact health care. Alcohol [...] Information RESULTS No Results REASON FOR VISIT PUBLIC HEALTH MEDICAL (GENERAL) HISTORY Type Description Date Medical [...] PLAN OF TREATMENT Next Appt Details Provider Name:Yesenia Luke, 01-23 10:00:00 AM, [address], , [place], [address], Insurance Providers Payer Name Payer Address Payer Phone Insured Name Patient Relati onship to Insured Coverage Start Date Coverage End Date [facility] COMMUNITY PLAN [facility] [address] [facility] [phone] TATIANNA LAMB self
--- OUTSIDE RECORDS SUMMARY | 2021-02-11 08:50 | CCD ---
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 Active confirmed Problem Non-pressure chronic ulcer o f other part of unspecified foot with unspecified severity L97.509 Active confirmed [id number] Problem Type 2 diabetes mellitus with foot ulcer E11.621 Active confirmed 911307939 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 Alcohol Screening: Question Answer Notes Did you have a drink containing alcohol in the past year? No Points 0 Interpretation Negative Tobacco Use: Question Answer Notes Are you a: current smoker using patch/pill REASON FOR REFERRAL from 1967 to 2021-01-02 Reason Patient needs an insert of h er left shoe for persistent but improving diabetic foot wound Diagnosis 1 Type 2 diabetes mellitus wit h foot ulcer (E11.621) Referral Organization [facility] Referring Provider First Name Yesenia Referring Provider Last Name Marly Referring Provider Specialty Wound Care Referred Provider [facility] Referred Provider Specialty Other supplier Referral Priority Routine General Notes Yesenia Luke PA 2020 1:02:59 PM > Referral faxed VITAL SIGNS Weight 180 lbs Dec, Height 64 in Dec, BMI 30.89 kg/m2 Dec, Heart Rate 78 /min Dec, Respiratory Rate 20 /min Dec, Temperature 98.1 degrees Fahrenheit Dec, Oximetry 97 Dec, Blood pressure systolic 113 mm Hg Dec, Blood pressure diastolic 70 mm Hg Dec, MEDICATIONS Medication SIG (Take, Route, Frequency, Duration) Notes Start Da te End Date Status Albuterol Sulfate (2.5 MG/3ML) 0.083% 3 ml as needed Inhalation ilene ry 6 hrs Not-Taking Aspirin 325 MG 1 tablet Orally Once a day for 30 day(s) Active Zetia 10 MG 1 tablet Orally Once a day for 30 day(s) Active Loratadine 10 MG 1 tablet Orally Once a day for 30 day(s) Active Nitrofurantoin Monohyd Macro 100 MG TAKE ONE CAPSULE B Y MOUTH TWICE A DAY WITH FOOD UNTIL GONE Oral for 5 Activ e Tresiba FlexTouch 200 UNIT/ML 72 units Subcutaneous BID Active Jardiance 10 MG 1 tablet Orally Once a day for 30 day(s) Not-Taking Insulin Lispro 100 UNIT/ML as directed Subcutaneous Not-Taking Ciprofloxacin HCl 750 MG 1 tablet Orally every 12 hrs for 10 day(s) Not-Taking Lisinopril 5 MG 1 tablet Orally Once a day for 30 day(s) Active Nystatin - as directed Not-Taking Farxiga 10 MG 1 tablet Orally Once a day for 30 day(s) Active Tresiba 200 U/mL Not-Taki ng Ferrous Sulfate 325 (65 Fe) MG 1 tablet Orally Once a day for 30 day( s) Active Zofran 4 MG 1 tablet Orally Once a day for 30 day(s) Not-Taking Cymbalta 60 MG 1 capsule Orally Once a day for 30 day(s) Not-Taking Docusate Sodium 100 MG 1 capsule as needed Orally Once a day for 30 day(s) Not-Taking PriLOSEC 10 MG as directed Orally Ac tive Pentoxifylline - as directed Active metroNIDAZOLE 250 MG 1 tablet Orally Three times a day for 10 day(s) Not-Taking Metoclopramide HCl 10 MG 1 tablet before meals Orally Twice a day for 30 day(s) Active Coreg 3.125 MG 1 tablet with food Orally Twice a day for 30 day(s) Active Lyrica 150 MG 1 capsule Orally Once a day Not-Taking vicodin 1 tab Oral for 14 days No t-Taking HYDROcodone-Acetaminophen 5-325 MG 1 tablet as needed Orally every 6 hrs Not-Taking Albuterol Sulfate HFA 108 (90 Base) MCG/ACT INHALE ONE TO TWO PUFFS BY MOUTH EVERY 4 TO 6 HOURS NEEDED FOR SHORTNESS OF BREATH Inhalation for 30 Active Cyclobenzaprine HCl 5 MG 1 tablet at bedtime as neede d Orally Once a day for 30 day(s) Active Steglatro 15 MG 1 tablet Orally Once a day for 30 day(s) Not-Taking Trulicity 0.75 MG/0.5ML as directed Subcutaneous Not-Taking Lexapro 10 MG 1 tablet Orally Once a day for 30 day(s) Active Atorvastatin Calcium 80 MG 1 tablet Orally Once a day for 30 day(s) Active buPROPion HCl 100 MG 1 tablet Orally Twice a day for 30 day(s) Active Multivitamin - 1 tablet Orally Once a day for 30 day(s) Not-Taking oxyCODONE-Acetaminophen 5-325 MG 1 tablet as needed Orally every 6 hr s Not-Taking Plavix 75 MG 1 tablet Orally Once a day for 30 day(s) Active PROCEDURES from 1967 to 2021-01-02 Procedure Date Ordered Result Body Site Medication: 4% Lidocaine topical cream (Anecream) 5gm 2020-12-26 N/A RESULTS No Results REASON FOR VISIT LEFT FOOT WOUND MEDICAL (GENERAL) HISTORY Type Description Date Medical [...] follow those documented in the procedure note Referrals Referral Date Details Patient needs an insert of h er left shoe for persistent but improving diabetic foot wound, Orthopedic [facility] Appt Details 1 Week Reason: Provider Name:Yesenia Luke, 01-09 10:00:00 AM, [address], , [place], [address], Provider Name:Bennie Childs, 2021-04-24 08:30:00 AM, [address], , [place], [address], Insurance Providers Payer Name Payer Address Payer Phone Insured Name Patient Relati onship to Insured Coverage Start Date Coverage End Date [facility] [id number] [facility] [phone] TATIANNA LAMB self
--- OUTSIDE RECORDS SUMMARY | 2021-02-11 08:55 | CCD ---
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 Care Science Writer Name Role Phone Maring, Rick PA Unavailable Unavailable Maring, Rick PA Unavailable Unavailable Maring, Rick PA Unavailable Unavailable Maring, Rick PA Unavailable Unavailable Maring, Rick PA Unavailable Unavailable Maring, Rick PA Unavailable Unavailable Maring, Rick PA Unavailable Unavailable Maring, Rick PA Unavailable Unavailable Maring, Rick PA Unavailable Unavailable Maring, Rick PA Unavailable Unavailable Maring, Rick PA Unavailable Unavailable Maring, Rick PA Unavailable Unavailable Maring, Rick PA Unavailable Unavailable Maring, Rick PA Unavailable Unavailable Maring, Rick PA Unavailable Unavailable Maring, Rick PA Unavailable Unavailable Magalis LEVINE MD Unavailable [...] Unavailable Unavailable Magalis LEVINE MD Unavailable Unavailable Maglais LEVINE MD Unavailable Unavailable Magalis LEVINE MD [...] Unavailable Unavailable Magalis LEVINE MD Unavailable Unavailable NAZESABA Jacobo MD Unavailable Unavailable NAZEM AHMAD MD Unavailable [...] Unavailable Unavailable NAZEM, AHMAD MD Unavailable Unavailable SABA SMITH MD Unavailable Unavailable SABA SMITH MD Unavailable Unavailable SABA SMITH MD Unavailable Unavailable NAZEM, SABA BARNETT Unavailable Unavailable Feola, T Denise PA Unavailable Unavailable Feola, T Denise PA Unavailable Unavailable Feola, T Denise PA Unavailable Unavailable Feola, T Denise PA Unavailable Unavailable Feola, T Denise PA Unavailable Unavailable Feola, T Denise PA Unavailable Unavailable Feola, T Denise PA Unavailable Unavailable Feola, T Denise PA Unavailable Unavailable Feola, T Denise PA Unavailable Unavailable Feola, T Denise PA Unavailable Unavailable Feola, T Denise PA Unavailable Unavailable Feola, T Denise PA Unavailable Unavailable Feola, T Denise PA Unavailable Unavailable Feola, T Denise PA Unavailable Unavailable Feola, T Denise PA Unavailable Unavailable Feola, T Denise PA Unavailable Unavailable Feola, T Denise PA Unavailable Unavailable Feola, T Denise PA Unavailable Unavailable Feola, T Denise PA Unavailable Unavailable Feola, T Denise PA Unavailable Unavailable Feola, T Denise PA Unavailable Unavailable Feola, T Denise PA Unavailable Unavailable Feola, T Denise PA Unavailable Unavailable Feola, T Denise PA Unavailable Unavailable Feola, T Denise PA Unavailable Unavailable Feola, T Denise PA Unavailable Unavailable Feola, T Denise PA Unavailable Unavailable Feola, T Denise PA Unavailable Unavailable Feola, T Denise PA Unavailable Unavailable Feola, T Denise PA Unavailable Unavailable Feola, T Denise PA Unavailable Unavailable Feola, T Denise PA Unavailable Unavailable Feola, T Denise PA Unavailable Unavailable Feola, T Denise PA Unavailable Unavailable Feola, T Denise PA Unavailable Unavailable Feola, T Denise PA Unavailable Unavailable Feola, T Denise PA Unavailable Unavailable Feola, T Denise PA Unavailable Unavailable Feola, T Denise PA Unavailable Unavailable Feola, T Denise PA Unavailable Unavailable Feola, T Denise PA Unavailable Unavailable Concepción MCCARTY DPM Unavailable Unavailable Concepción MCCARTY DPM Unavailable Unavailable Concepción MCCARTY DPM Unavailable Unavailable Concepción MCCARTY DPM Unavailable Unavailable Concepción MCCARTY DPM Unavailable Unavailable Concepción MCCARTY DPM Unavailable Unavailable Concepción MCACRTY DPM Unavailable Unavailable Concepción MCCARTY DPM Unavailable [...] Unavailable MAJAK, R FLORECITA DPM Unavailable Unavailable O'tung, A Anatoliy PA Unavailable Unavailable O'tung, A Anatoliy PA Unavailable Unavailable O'tung, A Anatoliy PA Unavailable Unavailable O'tung, A Anatoliy PA Unavailable Unavailable O'tung, A Anatoliy PA Unavailable Unavailable O'tung, A Anatoliy PA Unavailable Unavailable O'tung, A Anatoliy PA Unavailable Unavailable O'tung, A Anatoliy PA Unavailable Unavailable O'tung, A Anatoliy PA Unavailable Unavailable O'tung, A Anatoliy PA Unavailable Unavailable O'tung, A Anatoliy PA Unavailable Unavailable O'tung, A Anatoliy PA Unavailable Unavailable O'tung, A Anatoliy PA Unavailable Unavailable O'tung, A Anatoliy PA Unavailable Unavailable O'tung, A Anatoliy PA Unavailable Unavailable O'tung, A Anatoliy PA Unavailable Unavailable O'tung, A Anatoliy PA Unavailable Unavailable O'tung, A Anatoliy PA Unavailable Unavailable O'tung, A Anatoliy PA Unavailable Unavailable O'tung, A Anatoliy PA Unavailable Unavailable O'tung, A Anatoliy PA Unavailable Unavailable O'tung, A Anatoliy PA Unavailable Unavailable O'tung, A Anatoliy PA Unavailable Unavailable O'tung, A Anatoliy PA Unavailable Unavailable O'tung, A Anatoliy PA Unavailable Unavailable O'tung, A Anatoliy PA Unavailable Unavailable O'tung, A Anatoliy PA Unavailable Unavailable O'tung, A Anatoliy PA Unavailable Unavailable O'tung, A Anatoliy PA Unavailable Unavailable O'tung, A Anatoliy PA Unavailable Unavailable O'tung, A Anatoliy PA Unavailable Unavailable O'tung, A Anatoliy PA Unavailable Unavailable O'tung, A Anatoliy PA Unavailable Unavailable [place]vale, L Dain MD Unavailable Unavailable Claribel, L Dain MD Unavailable Unavailable [place], L Dain MD Unavailable Unavailable [place], L Dain MD Unavailable Unavailable [place], L Dain MD Unavailable Unavailable Claribel, L Dain MD Unavailable Unavailable Claribel, L Dain MD Unavailable Unavailable [place], L Dain MD Unavailable Unavailable Claribel, L Dain MD Unavailable Unavailable [place], L Dain MD Unavailable Unavailable Claribel, L Dain MD Unavailable Unavailable [place], L Dain MD Unavailable Unavailable Claribel, L Dain MD Unavailable Unavailable [place], L Dian MD Unavailable Unavailable [place], L Dain MD Unavailable Unavailable [place], L Dain MD Unavailable Unavailable Claribel, L Dain MD Unavailable Unavailable Claribel, L Dain MD Unavailable Unavailable Claribel, L Dain MD Unavailable Unavailable Claribel, L Dain MD Unavailable Unavailable [place], L Dain MD Unavailable Unavailable Claribel, L Dain MD Unavailable Unavailable [place], L Dain MD Unavailable Unavailable [place], L Dain MD Unavailable Unavailable Clarbiel, L Dain MD Unavailable Unavailable [place], L Dain MD Unavailable Unavailable [place], Tabatha Dain MD Unavailable Unavailable Claribel, L Dain MD Unavailable Unavailable Claribel, L Dain MD Unavailable Unavailable Claribel, L Dain MD Unavailable Unavailable [place], L Dain MD Unavailable Unavailable [place], L Dain MD Unavailable Unavailable [place], L Dain MD Unavailable Unavailable [place], L Dain MD Unavailable Unavailable Claribel, L Dain MD Unavailable Unavailable [place], L Dain MD Unavailable Unavailable Claribel, L Dain MD Unavailable Unavailable [place], L Dain MD Unavailable Unavailable Claribel, L Dain MD Unavailable Unavailable [place], L Dain MD Unavailable Unavailable Claribel, L Dain MD Unavailable Unavailable Claribel, L Dain MD Unavailable Unavailable [place], L Dain MD Unavailable Unavailable Claribel, L Dain MD Unavailable Unavailable [place], L Dain MD Unavailable Unavailable Claribel, Tabatha Gautam MD Unavailable Unavailable Claribel, Tabatha Gautam MD Unavailable Unavailable Fons, M Alethea COCOA MILLING MACHINE OPERATOR Unavailable Unavailable Fons, M Alethea COCOA MILLING MACHINE OPERATOR Unavailable Unavailable Fons, M Alethea COCOA MILLING MACHINE OPERATOR Unavailable Unavailable Fons, M Alethea COCOA MILLING MACHINE OPERATOR Unavailable Unavailable Fons, M Alethea COCOA MILLING MACHINE OPERATOR Unavailable Unavailable Fons, M Alethea COCOA MILLING MACHINE OPERATOR Unavailable Unavailable Fons, M Alethea COCOA MILLING MACHINE OPERATOR Unavailable Unavailable Fons, M Alethea COCOA MILLING MACHINE OPERATOR Unavailable Unavailable Fons, M Alethea COCOA MILLING MACHINE OPERATOR Unavailable Unavailable Fons, M Alethea COCOA MILLING MACHINE OPERATOR Unavailable Unavailable Fons, M Alethea COCOA MILLING MACHINE OPERATOR Unavailable Unavailable Fons, M Alethea COCOA MILLING MACHINE OPERATOR Unavailable Unavailable Fons, M Alethea COCOA MILLING MACHINE OPERATOR Unavailable Unavailable Fons, M Alethea COCOA MILLING MACHINE OPERATOR Unavailable Unavailable Fons, M Alethea COCOA MILLING MACHINE OPERATOR Unavailable Unavailable Fons, M Alethea COCOA MILLING MACHINE OPERATOR Unavailable Unavailable Fons, M Alethea COCOA MILLING MACHINE OPERATOR Unavailable Unavailable Fons, M Alethea COCOA MILLING MACHINE OPERATOR Unavailable Unavailable Fons, M Alethea COCOA MILLING MACHINE OPERATOR Unavailable Unavailable Fons, M Alethea COCOA MILLING MACHINE OPERATOR Unavailable Unavailable Fons, M Alethea COCOA MILLING MACHINE OPERATOR Unavailable Unavailable Fons, M Alethea COCOA MILLING MACHINE OPERATOR Unavailable Unavailable Fons, M Alethea COCOA MILLING MACHINE OPERATOR Unavailable Unavailable Fons, M Alethea COCOA MILLING MACHINE OPERATOR Unavailable Unavailable Fons, M Alethea COCOA MILLING MACHINE OPERATOR Unavailable Unavailable Fons, M Alethea COCOA MILLING MACHINE OPERATOR Unavailable Unavailable Fons, M Alethea COCOA MILLING MACHINE OPERATOR Unavailable Unavailable Fons, M Alethea COCOA MILLING MACHINE OPERATOR Unavailable Unavailable Fons, M Alethea COCOA MILLING MACHINE OPERATOR Unavailable Unavailable Fons, M Alethea COCOA MILLING MACHINE OPERATOR Unavailable Unavailable Fons, M Alethea COCOA MILLING MACHINE OPERATOR Unavailable Unavailable Fons, M Alethea COCOA MILLING MACHINE OPERATOR Unavailable Unavailable Fons, M Alethea COCOA MILLING MACHINE OPERATOR Unavailable Unavailable Fons, M Alethea COCOA MILLING MACHINE OPERATOR Unavailable Unavailable Fons, M Alethea COCOA MILLING MACHINE OPERATOR Unavailable Unavailable Fons, M Alethea COCOA MILLING MACHINE OPERATOR Unavailable Unavailable Fons, M Alethea COCOA MILLING MACHINE OPERATOR Unavailable Unavailable Fons, M Alethea COCOA MILLING MACHINE OPERATOR Unavailable Unavailable Fons, M Alethea COCOA MILLING MACHINE OPERATOR Unavailable Unavailable Fons, M Alethea COCOA MILLING MACHINE OPERATOR Unavailable Unavailable Fons, M Alethea COCOA MILLING MACHINE OPERATOR Unavailable Unavailable Fons, M Alethea COCOA MILLING MACHINE OPERATOR Unavailable Unavailable Fons, M Alethea COCOA MILLING MACHINE OPERATOR Unavailable Unavailable Fons, M Alethea COCOA MILLING MACHINE OPERATOR Unavailable Unavailable Fons, M Alethea COCOA MILLING MACHINE OPERATOR Unavailable Unavailable Fons, M Alethea COCOA MILLING MACHINE OPERATOR Unavailable Unavailable Fons, M Alethea COCOA MILLING MACHINE OPERATOR Unavailable Unavailable Fons, M Alethea COCOA MILLING MACHINE OPERATOR Unavailable Unavailable Fons, M Alethea COCOA MILLING MACHINE OPERATOR Unavailable Unavailable Fons, M Alethea COCOA MILLING MACHINE OPERATOR Unavailable Unavailable Fons, M Alethea COCOA MILLING MACHINE OPERATOR Unavailable Unavailable Fons, M Alethea COCOA MILLING MACHINE OPERATOR Unavailable Unavailable Fons, M Alethea COCOA MILLING MACHINE OPERATOR Unavailable Unavailable SEMEL, A BRITTANI MD Unavailable Unavailable SEMEL, Harris PETER MD [...] SEMEL, Harris PETER MD Unavailable Unavailable SEMEL, Harirs PETER MD Unavailable Unavailable SEMEL, Harris PETER [...] Unavailable SEMEL, Harris PETER MD Unavailable Unavailable FISCHI, Fariha COPE MD Unavailable Unavailable FISCHI, Fariha COPE MD Unavailable Unavailable FISCHI, Fariha COPE MD Unavailable Unavailable FISCHI, C ANATOLIY MD Unavailable Unavailable FISCHI, Fariha COPE MD Unavailable Unavailable FISCHI, Fariha COPE MD Unavailable Unavailable FISCHI, Fariha COPE MD Unavailable Unavailable FISCHI, Fariha COPE MD Unavailable Unavailable FISCHI, Fariha COPE MD Unavailable Unavailable FISCHI, Fariha COPE MD Unavailable Unavailable FISCHI, Fariha COPE MD Unavailable Unavailable FISCHI, Fariha COPE MD Unavailable Unavailable FISCHI, Fariha COPE MD Unavailable Unavailable FISCHI, Fariha COPE MD Unavailable Unavailable FISCHI, Fariha COPE MD Unavailable Unavailable FISCHI, Fariha COPE MD Unavailable Unavailable FISCHI, Fariha COPE MD Unavailable Unavailable FISCHI, Fariha COPE MD Unavailable Unavailable FISCHI, Fariha COPE MD Unavailable Unavailable FISCHI, Fariha COPE MD Unavailable Unavailable FISCHI, Fariha COPE MD Unavailable Unavailable FISCHI, Fariha COPE MD Unavailable Unavailable FISCHI, Fariha COPE MD Unavailable Unavailable FISCHI, Fariha COPE MD Unavailable Unavailable FISCHI, Fariha COPE MD Unavailable Unavailable FISCHI, Fariha COPE MD Unavailable Unavailable FISCHI, Fariha COPE MD Unavailable Unavailable FISCHI, Fariha COPE MD Unavailable Unavailable FISCHI, Fariha COPE MD Unavailable Unavailable FISCHI, Fariha COPE MD Unavailable Unavailable FISCHI, Fariha COPE MD Unavailable Unavailable FISCHI, Fariha COPE MD Unavailable Unavailable FISCHI, Fariha COPE MD Unavailable Unavailable FISCHI, Fariha COPE MD Unavailable Unavailable FISCHI, Fariha COPE MD Unavailable Unavailable FISCHI, Fariha COPE MD Unavailable Unavailable FISCHI, Fariha COPE MD Unavailable Unavailable FISCHI, Fariha COPE MD Unavailable Unavailable FISCHI, Fariha COPE MD Unavailable Unavailable FISCHI, Fariha COPE MD Unavailable Unavailable FISCHI, Fariha COPE MD Unavailable Unavailable FISCHI, Fariha COPE MD Unavailable Unavailable FISCHI, Fariha COPE MD Unavailable Unavailable FISCHI, Fariha COPE MD Unavailable Unavailable FISCHI, Fariha COPE MD Unavailable Unavailable FISCHI, Fariha COPE MD Unavailable Unavailable FISCHI, Fariha COPE MD Unavailable Unavailable FISCHI, Fariha COPE MD Unavailable Unavailable FISCHI, Fariha COPE MD Unavailable Unavailable FISCHI, Fariha COPE MD Unavailable Unavailable FISCHI, Fariha COPE MD Unavailable Unavailable FISCHI, Fariha COPE MD Unavailable Unavailable FISCHI, Fariha COPE MD Unavailable Unavailable FISCHI, Fariha COPE MD Unavailable Unavailable FISCHI, Fariha COPE MD Unavailable Unavailable FISCHI, Fariha COPE MD Unavailable Unavailable FISCHI, Fariha COPE MD Unavailable Unavailable FISCHI, Fariha COPE MD Unavailable Unavailable FISCHI, Fariha COPE MD Unavailable Unavailable FISCHI, Fariha COPE MD Unavailable Unavailable FISCHI, Fariha COPE MD Unavailable Unavailable FISCHI, Fariha COPE MD Unavailable Unavailable FISCHI, Fariha COPE MD Unavailable Unavailable FISCHI, Fariha COPE MD Unavailable Unavailable FISCHI, Fariha COPE MD Unavailable Unavailable FISCHI, Fariha COPE MD Unavailable Unavailable Fariha BONILLA MD Unavailable Unavailable Fariha BONILLA MD Unavailable Unavailable Fariha BONILLA MD Unavailable Unavailable Fariha BONILLA MD Unavailable Unavailable Fariha BONILLA MD Unavailable Unavailable Fariha BONILLA MD Unavailable Unavailable Fariha BONILLA MD Unavailable Unavailable Fariha BONILLA MD Unavailable Unavailable Fariha BONILLA MD Unavailable Unavailable Fariha BONILLA MD Unavailable Unavailable Fariha BONILLA MD Unavailable Unavailable Fariha BONILLA MD Unavailable Unavailable Gómez, M Christopher PA-C Unavailable Unavailable Gómez, M Christopher PA-C Unavailable Unavailable Gómez, M Christopher PA-C Unavailable Unavailable Gómez, M Christopher PA-C Unavailable Unavailable Gómez, M Christopher PA-C Unavailable Unavailable Gómez, M Christopher PA-C Unavailable Unavailable Gómez, M Christopher PA-C Unavailable Unavailable Gómez, M Christopher PA-C Unavailable Unavailable Gómez, M Christopher PA-C Unavailable Unavailable Gómez, M Christopher PA-C Unavailable Unavailable Gómez, M Christopher PA-C Unavailable Unavailable Gómez, M Christopher PA-C Unavailable Unavailable Gómez, M Christopher PA-C Unavailable Unavailable Gómez, M Christopher PA-C Unavailable Unavailable Gómez, M Christopher PA-C Unavailable Unavailable Gómez, M Christopher PA-C Unavailable Unavailable Gómez, M Christopher PA-C Unavailable Unavailable Gómez, M Christopher PA-C Unavailable Unavailable Gómez, M Christopher PA-C Unavailable Unavailable Gómez, M Christopher PA-C Unavailable Unavailable Gómez, M Christopher PA-C Unavailable Unavailable Gómez, M Christopher PA-C Unavailable Unavailable Gómez, M Christopher PA-C Unavailable Unavailable Gómez, M Christopher PA-C Unavailable Unavailable Gómez, M Christopher PA-C Unavailable Unavailable Gómez, M Christopher PA-C Unavailable Unavailable Mike, Genevieve PA Unavailable Unavailable Mike, Genevieve PA Unavailable Unavailable Mike, Genevieve PA Unavailable Unavailable Mike, Genevieve PA Unavailable Unavailable Mike, Genevieve PA Unavailable Unavailable Mkie, Genevieve PA Unavailable Unavailable Mike, Genevieve PA [...] Unavailable Unavailable Mike, Genevieve PA Unavailable Unavailable Re-disclosure Warning The records that [...] is protected by Article 27-F of the [place] State Public Health law. If you continue you may have access to information: Regarding HIV / AIDS; Provided by facilities licensed or operated by the [facility] Office of Mental Health; or Provided by the [facility] Office for People With Developmental Disabilities. If such information is present, then the following [facility] mandated warning applies: This information has [...] law may result in a fine or custodial sentence or both. A general authorization for the release of medical or other information is NOT sufficient authorization for further disc losure. Allergies and Adverse Reactions Type Description Substance Reaction Status Data Source(s ) Invokana Invokana Invokana active [facility] ([facility]) Basaglar Kwikpen Basaglar Kwikpen Basaglar Kwikpen active [facility] ([facility]) Grapefruit Concentrate Grapefruit Concentrate Grapefruit Concentrate active [facility] ([facility]) Family History Family Member Name Family Member Gender Family Member Status Date o f Status Description Data Source(s) Unknown Male Problem MEDENT ([facility]) Encounters Encounter Providers Location Date Indications Data Source(s ) Unknown [address] [facility] [id number] 01/20/2021 12:00:00 AM EDT eCW1 ([facility]) Outpatient [address] [place] [phone] 01/16/2021 12:00:00 AM EDT eCW1 ([facility]) ([id number]) For Template Amanda [address] [place] [phone] 01/09/2021 12:00:00 AM EDT eCW1 ([facility]) ([id number]) For Template Amanda [address] [place] [phone] 12/26/2020 12:00:00 AM EDT eCW1 ([facility]) ([id number]) For Template Amanda [address] [place] [phone] 12/12/2020 12:00:00 AM EDT eCW1 ([facility]) Unknown [address] [place] [phone] 11/29/2020 12:00:00 AM EDT eCW1 ([facility]) ([id number]) For Template Amanda [address] [place] [address] 11/15/2020 12:00:00 AM EDT eCW1 ([facility]) ([id number]) For Template Amanda [facility] [place] [address] 11/01/2020 12:00:00 AM EDT eCW1 ([facility]) Unknown [address] [facility] [id number] 10/25/2020 12:00:00 AM EDT eCW1 ([facility]) Unknown [address] [place] [phone] 10/18/2020 12:00:00 AM EDT eCW1 ([facility]) ([id number]) For Template Amanda [address] [place] [phone] 10/11/2020 12:00:00 AM EDT eCW1 ([facility]) ([id number]) For Template Amanda [address] [place] [phone] 10/04/2020 12:00:00 AM EDT eCW1 ([facility]) Office Visit, Est Pt., Level 2 PC [address] [place] [address] 09/27/2020 12:00:00 AM EDT eCW1 ([facility]) Unknown [address] [facility] [id number] 09/19/2020 12:00:00 AM EDT eCW1 ([facility]) ([id number]) For Template Amanda [address] [place] [phone] 09/12/2020 12:00:00 AM EDT eCW1 ([facility]) Unknown [facility] [address] 09/06/2020 12:00:00 AM EDT [facility]CW1 [facility]) ([id number]) For Template Amanda [address] [place] [phone] 08/29/2020 12:00:00 AM EDT eCW1 ([facility]) ([id number]) For Template Amanda [address] [place] [address] 08/15/2020 12:00:00 AM EDT eCW1 ([facility]) ([id number]) For Template Amanda [address] [place] [address] 08/09/2020 12:00:00 AM EDT eCW1 ([facility]) Outpatient Attender: Denise GALVIN 03:59:26 PM EDT - 08/08/2020 04:10:00 PM EDT [facility]uTap ([facility] ) Outpatient Attender: Dain Jacobo DAdmitter: Dain Sanford MDReferrer: Dain Sanford MD [id number] 07/31/2020 05:22:27 PM EDT - 08/13/2020 05:44:00 PM EDT [facility] Patient discharged. ([id number]) For Template Amanda [address] [place] [phone] 07/30/2020 12:00:00 AM EDT eCW1 ([facility]) Out[place] [address] [facility] [address] 07/24/2020 12:00:00 AM EDT eCW1 ([facility]) Outpatient Attender: Rick Huberender: Eulogio cervantes PA-C 07/22/2020 01:22:45 PM EDT - 07/22/2020 02:16:01 PM EDT [facility]uTap ([facility]) Outpatient Attender: Rick GALVIN 07/19/19 12:26:24 PM EDT - 07/18/2020 12:49:57 PM EDT [facility] ([facility] ) [place] [address] [facility] [address] 07/17/2020 12:00:00 AM EDT eCW1 ([facility]) ([id number]) For Template Amanda [address] [place] [address] 07/16/2020 12:00:00 AM EDT eCW1 ([facility]) Unknown [address] [facility], [facility] [address] 07/15/2020 12:00:00 AM EDT eCW1 ([facility]) ([id number]) For Template Amanda [address] [place] [address] 07/12/2020 12:00:00 AM EDT eCW1 ([facility]) Outpatient Attender: Dain Sanford MDAdmitter: Magalis Sanford MD [id number] 07/10/2020 04:37:29 PM EDT [facility] Outpatient Attender: Genevieve GALVIN Main Office 07/09/2020 11:00:00 A M EDT MEDENT ([facility]) ([id number]) For Template Amanda [address] [place] [address] 07/05/2020 12:00:00 AM EDT eCW1 ([facility]) Outpatient [address] [facility] [id number] 06/28/2020 12:00:00 AM EST eCW1 ([facility]) Outpatient Attender: Alethea MAYORGA SJP.[email or web address] 12:00:00 AM EST - 06/21/2020 01:12:06 PM EST [facility] Outpatient [address] [facility] [id number] 06/21/2020 12:00:00 AM EST eCW1 ([facility]) Unknown [address] [facility] [address] 06/14/2020 12:00:00 AM EST eCW1 ([facility]) Unknown [address] [facility] [address] 06/07/2020 12:00:00 AM EST eCW1 ([facility]) ([id number]) For Template Amanda [facility] [place] [address] 05/31/2020 12:00:00 AM EST eCW1 ([facility]) ([id number]) For Template Amanda [facility] [place] [address] 05/24/2020 12:00:00 AM EST eCW1 ([facility]) Inpatient Attender: ANATOLIY BONILLA MDAdmitter: ANATOLIY BOWER CHI, MD [id number] 05/18/2020 01:17:38 AM EST - 05/19/2020 03:12:00 PM EST [facility] Patient discharged. ([id number]) For Template Amanda [address] [place] [phone] 05/17/2020 12:00:00 AM EST eCW1 ([facility]) ([id number]) For Template Amanda [address] [place] [address] 05/10/2020 12:00:00 AM EST eCW1 ([facility]) ([id number]) For Template Amanda [address] [place] [phone] 04/30/2020 12:00:00 AM EST eCW1 ([facility]) Outpatient Attender: Alethea MAYORGA SJP.[email or web address] 12:00:00 AM EST - 2020 01:46:07 PM EST [facility] Office Visit Attender: Dain Sanford MD Main Office 12:15:00 PM EST [facility] ([facility]) Unknown [address] [facility], [place] [address] 04/22/2020 12:00:00 AM EST eCW1 ([facility]) 04/16/2020 12:00:00 AM EST - 021 08:29:28 PM EST NETSMART ([facility]) Unknown [address] [facility], [facility] [address] 04/15/2020 12:00:00 AM EST eCW1 ([facility]) Inpatient Attender: BRITTANI BIRMINGHAM MDAdmitter: BRITTANI LUIS MD [id number] 04/10/2020 11:17:08 PM EST - 04/15/2020 01:18:00 PM EST [facility] Patient discharged. ([id number]) For Template Amanda [address] [place] [address] 04/05/2020 12:00:00 AM EST eCW1 ([facility]) Outpatient Attender: Alethea MAYORGA [email or web address] 0 12:00:00 AM EST - 03/29/2020 04:01:18 PM EST [facility] ([id number]) For Template Amanda [address] [place] [address] 03/28/2020 12:00:00 AM EST eCW1 ([facility]) Office Visit Attender: Genevieve GALVIN Main Office 03/21/2020 01:45:00 PM EST MEDENT ([facility]) ([id number]) For Template Amanda [address] [place] [address] 03/21/2020 12:00:00 AM EST eCW1 ([facility]) Unknown [address] [facility] [id number] 03/08/2020 12:00:00 AM EST eCW1 ([facility]) Unknown [address] [facility] [address] 03/06/2020 12:00:00 AM EST eCW1 ([facility]) Unknown [address] [facility] [address] 03/05/2020 12:00:00 AM EST eCW1 ([facility]) Office Visit Attender: Dain Sanford MD Main Office 09:45:00 AM EST MEDENT ([facility]) ([id number]) For Template Amanda [id number] 02/29/2020 12:00:00 AM EST eCW1 ([facility]) Unknown [address] [facility] [id number] 02/22/2020 12:00:00 AM EST eCW1 ([facility]) Unknown [address] [facility] [address] 02/22/2020 12:00:00 AM EST eCW1 ([facility]) Outpatient Attender: Dain Jacobo DAttender: BRITTANI BIRMINGHAM MDAdmitter: BRITTANI BIRMINGHAM MDReferrer: BRITTANI BIRMINGHAM MDConsultant: Dain Sanford MD [id number] 02/18/2020 04:40:24 PM EST - 02/20/2020 09:35:00 PM EST [facility] Patient discharged. 02/16/2020 01:00:00 AM EDT - 05:10:48 PM EST [facility] ([facility]) Inpatient Attender: Dain Jacobo DAdmitter: Dain Sanford MDConsultant: SHANTELL LEVINE MD [id number] 02/05/2020 04:17:29 AM EDT - 02/16/2020 12:57:00 PM EDT [facility] Patient discharged. Unknown [address] [facility] [id number] 02/05/2020 12:00:00 AM EDT eCW1 ([facility]) Unknown [address] [facility] [id number] 02/05/2020 12:00:00 AM EDT eCW1 ([facility]) ([id number]) For Template Amanda [address] [place] [address] 02/02/2020 12:00:00 AM EDT eCW1 ([facility]) ([id number]) For Template Amanda [address] [place] [address] 01/26/2020 12:00:00 AM EDT eCW1 ([facility]) SDC Attender: SABA SMITH MDAdmitter: SABA SMIHT MD ES1-OR 01/24/2020 09:09:23 AM EDT [facility] Outpatient Attender: SABA SMITH MD [email or web address] 12:00:00 AM EDT - 01/23/2020 11:40:56 AM [id number] For Template Amanda [address] [place] [address] 01/17/2020 12:00:00 AM EDT eCW1 ([facility]) Outpatient Attender: Anatoliy GALVIN [facility] 01/05/2020 11:00:00 AM EDT MEDENT ([facility]) Outpatient Attender: FLORECITA MCCARTY [facility] 12/2019 10:00:00 AM EDT MED[facility] ([facility] Emergency ES1-ES1 12/07/2019 07:08:00 PM EDT - 11:18:00 PM EDT [facility] Patient discharged. Immunizations Vaccine Date Status Description Data Source(s) COVID-19 VACCINE Moderna 08/06/2020 12:00:00 AM EDT completed [place] Vaccine Series Complete: YESThis Data wa s Submitted to [facility]. COVID-19 VACCINE Moderna 07/09/2020 12:00:00 AM EDT completed [place] Vaccine Series Complete: NOThis Data was Submitted to [facility] Via [employer]. COVID-19 VACCINE Moderna 07/05/2020 12:00:00 AM EDT completed [place] Vaccine Series Complete: NOThis Data was Submitted to [facility] Via [employer]. influenza, recombinant, quadrIvalent,injectable, prese rvative free 01/26/2020 10:09:00 AM EDT completed eCW1 ([facility]) influenza, recombinant, quadrIvalent,injectable, prese rvative free 01/26/2020 10:09:00 AM EDT completed eCW1 ([facility]) influenza, recombinant, quadrIvalent,injectable, prese rvative free 01/26/2020 10:09:00 AM EDT completed eCW1 ([facility]) influenza, recombinant, quadrIvalent,injectable, prese rvative free 01/26/2020 10:09:00 AM EDT completed eCW1 ([facility]) influenza, recombinant, quadrIvalent,injectable, prese rvative free 01/26/2020 10:09:00 AM EDT completed eCW1 ([facility]) influenza, recombinant, quadrIvalent,injectable, prese rvative free 01/26/2020 10:09:00 AM EDT completed eCW1 ([facility]) influenza, recombinant, quadrIvalent,injectable, prese rvative free 01/26/2020 10:09:00 AM EDT completed eCW1 ([facility]) influenza, recombinant, quadrIvalent,injectable, prese rvative free 01/26/2020 10:09:00 AM EDT completed eCW1 ([facility]) influenza, recombinant, quadrIvalent,injectable, prese rvative free 01/26/2020 10:09:00 AM EDT completed eCW1 ([facility]) influenza, recombinant, quadrIvalent,injectable, prese rvative free 01/26/2020 10:09:00 AM EDT completed eCW1 ([facility]) influenza, recombinant, quadrIvalent,injectable, prese rvative free 01/26/2020 10:09:00 AM EDT completed eCW1 ([facility]) influenza, recombinant, quadrIvalent,injectable, prese rvative free 01/26/2020 10:09:00 AM EDT completed eCW1 ([facility]) influenza, recombinant, quadrIvalent,injectable, prese rvative free 01/26/2020 10:09:00 AM EDT completed eCW1 ([facility]) influenza, recombinant, quadrIvalent,injectable, prese rvative free 01/26/2020 10:09:00 AM EDT completed eCW1 ([facility]) influenza, recombinant, quadrIvalent,injectable, prese rvative free 01/26/2020 10:09:00 AM EDT completed eCW1 ([facility]) influenza, recombinant, quadrIvalent,injectable, prese rvative free 01/26/2020 10:09:00 AM EDT completed eCW1 ([facility]) influenza, recombinant, quadrIvalent,injectable, prese rvative free 01/26/2020 10:09:00 AM EDT completed eCW1 ([facility]) influenza, recombinant, quadrIvalent,injectable, prese rvative free 01/26/2020 10:09:00 AM EDT completed eCW1 ([facility]) influenza, recombinant, quadrIvalent,injectable, prese rvative free 01/26/2020 10:09:00 AM EDT completed eCW1 ([facility]) influenza, recombinant, quadrIvalent,injectable, prese rvative free 01/26/2020 10:09:00 AM EDT completed eCW1 ([facility]) influenza, recombinant, quadrIvalent,injectable, prese rvative free 01/26/2020 10:09:00 AM EDT completed eCW1 ([facility]) influenza, recombinant, quadrIvalent,injectable, prese rvative free 01/26/2020 10:09:00 AM EDT completed eCW1 ([facility]) influenza, recombinant, quadrIvalent,injectable, prese rvative free 01/26/2020 10:09:00 AM EDT completed eCW1 ([facility]) influenza, recombinant, quadrIvalent,injectable, prese rvative free 01/26/2020 10:09:00 AM EDT completed eCW1 ([facility]) influenza, recombinant, quadrIvalent,injectable, prese rvative free 01/26/2020 10:09:00 AM EDT completed eCW1 ([facility]) influenza, recombinant, quadrIvalent,injectable, prese rvative free 01/26/2020 10:09:00 AM EDT completed eCW1 ([facility]) influenza, recombinant, quadrIvalent,injectable, prese rvative free 01/26/2020 10:09:00 AM EDT completed eCW1 ([facility]) influenza, recombinant, quadrIvalent,injectable, prese rvative free 01/26/2020 10:09:00 AM EDT completed eCW1 ([facility]) influenza, recombinant, quadrIvalent,injectable, prese rvative free 01/26/2020 10:09:00 AM EDT completed eCW1 ([facility]) influenza, recombinant, quadrIvalent,injectable, prese rvative free 01/26/2020 10:09:00 AM EDT completed eCW1 ([facility]) influenza, recombinant, quadrIvalent,injectable, prese rvative free 01/26/2020 10:09:00 AM EDT completed eCW1 ([facility]) influenza, recombinant, quadrIvalent,injectable, prese rvative free 01/26/2020 10:09:00 AM EDT completed eCW1 ([facility]) influenza, recombinant, quadrIvalent,injectable, prese rvative free 01/26/2020 10:09:00 AM EDT completed eCW1 ([facility]) influenza, recombinant, quadrIvalent,injectable, prese rvative free 01/26/2020 10:09:00 AM EDT completed eCW1 ([facility]) influenza, recombinant, quadrIvalent,injectable, prese rvative free 01/26/2020 10:09:00 AM EDT completed eCW1 ([facility]) influenza, recombinant, quadrIvalent,injectable, prese rvative free 01/26/2020 10:09:00 AM EDT completed eCW1 ([facility]) influenza, recombinant, quadrIvalent,injectable, prese rvative free 01/26/2020 10:09:00 AM EDT completed eCW1 ([facility]) influenza, recombinant, quadrIvalent,injectable, prese rvative free 01/26/2020 10:09:00 AM EDT completed eCW1 ([facility]) influenza, recombinant, quadrIvalent,injectable, prese rvative free 01/26/2020 10:09:00 AM EDT completed eCW1 ([facility]) influenza, recombinant, quadrIvalent,injectable, prese rvative free 01/26/2020 10:09:00 AM EDT completed eCW1 ([facility]) influenza, recombinant, quadrIvalent,injectable, prese rvative free 01/26/2020 10:09:00 AM EDT completed eCW1 ([facility]) influenza, recombinant, quadrIvalent,injectable, prese rvative free 01/26/2020 10:09:00 AM EDT completed eCW1 ([facility]) influenza, recombinant, quadrIvalent,injectable, prese rvative free 01/26/2020 10:09:00 AM EDT completed eCW1 ([facility]) influenza, recombinant, quadrIvalent,injectable, prese rvative free 01/26/2020 10:09:00 AM EDT completed eCW1 ([facility]) influenza, recombinant, quadrIvalent,injectable, prese rvative free 01/26/2020 10:09:00 AM EDT completed eCW1 ([facility]) influenza, recombinant, quadrIvalent,injectable, prese rvative free 01/26/2020 10:09:00 AM EDT completed eCW1 ([facility]) influenza, recombinant, quadrIvalent,injectable, prese rvative free 01/26/2020 10:09:00 AM EDT completed eCW1 ([facility]) influenza, recombinant, quadrIvalent,injectable, prese rvative free 01/26/2020 10:09:00 AM EDT completed eCW1 ([facility]) influenza, recombinant, quadrIvalent,injectable, prese rvative free 01/26/2020 10:09:00 AM EDT completed eCW1 ([facility]) influenza, recombinant, quadrIvalent,injectable, prese rvative free 01/26/2020 10:09:00 AM EDT completed eCW1 ([facility]) influenza, recombinant, quadrIvalent,injectable, prese rvative free 01/26/2020 10:09:00 AM EDT completed eCW1 ([facility]) Medications Medication Brand Name Start Date Product Form Dose Route Admi nistrative Instructions Pharmacy Instructions Status Indications Reaction Description Data Source(s) Acetaminophen 325 MG / Hydrocodone Bitartrate 5 MG Ora l Tablet 5-325 mg HYDROCODONE/ACETAMINOPHEN 02/05/2021 12:00:00 AM EDT tablet 90 TAKE ONE TABLET BY MOUTH EVERY 6 HOURS NEEDED FOR PAIN MAXIMUM DAILY DOSE = 4 TABLETS TAKE ONE TABLET BY MOUTH EVERY 6 HOURS NEEDED FOR PAIN MAXIMUM DAILY DOSE = 4 TABLETS SOLD: 02/05/2021 [facility] 90 mcg/actuation 01/29/2021 12:00:00 AM EDT HFA aerosol inha ler 36 INHALE ONE TO TWO PUFFS BY MOUTH EVERY 4 TO 6 HOURS NEEDED FOR SHORTNESS OF BREATH INHALE ONE TO TWO PUFFS BY MOUTH EVERY 4 TO 6 HOURS NEEDED FOR SHORTNESS OF BREATH SOLD: 01/29/2021 [facility] 200 mg 01/29/2021 12:00:00 AM EDT tablet 7 TAKE ONE TABLET BY MOUTH EVERY DAY TAKE ONE TABLET BY MOUTH EVERY DAY SOLD: 01/29/2021 [facility] Escitalopram 10 MG Oral Tablet ESCITALOPRAM OXALATE 01/17/2021 1 2:00:00 AM EDT tablet 90 TAKE ONE TABLET BY MOUTH EVERY D AY TAKE ONE TABLET BY MOUTH EVERY DAY SOLD: 01/19/2021 [facility] 50 mg 01/16/2021 12:00:00 AM EDT tablet 120 TAKE ONE TO TWO TABLETS BY MOUTH EVERY 6 HOURS FOR PAIN MAXIMUM DAILY DOSE = 6 TABLETS TAKE ONE TO TWO TABLETS BY MOUTH EVERY 6 HOURS FOR PAIN MAXIMUM DAILY DOSE = 6 TABLETS SOLD: 01/17/2021 [facility] 10 mg 01/10/2021 12:00:00 AM EDT tablet 60 TAKE ONE TABLET BY MOUTH TWICE A DAY 30 MINUTES BEFORE MEALS TAKE ONE TABLET BY MOUTH TWICE A DAY 30 MINUTES BEFORE MEALS SOLD: 01/12/2021 [facility] 200 mg 01/10/2021 12:00:00 AM EDT tablet 7 TAKE ONE TABLET BY MOUTH EVERY DAY TAKE ONE TABLET BY MOUTH EVERY DAY SOLD: 01/12/2021 [facility] 400 mg 01/10/2021 12:00:00 AM EDT tablet extended release 90 TAKE ONE TABLET BY MOUTH THREE TIMES A DAY WITH FOOD TAKE ONE TABLET BY MOUTH THREE TIMES A D AY WITH FOOD SOLD: 01/12/2021 [facility] 100 mg 01/06/2021 12:00:00 AM EDT capsule 12 TAKE ONE CAPSULE BY MOUTH TWICE A DAY TAKE ONE CAPSULE BY MOUTH TWICE A DAY SOLD: 02/03/2021 [facility] 100 mg 01/06/2021 12:00:00 AM EDT capsule 60 TAKE ONE CAPSULE BY MOUTH TWICE A DAY TAKE ONE CAPSULE BY MOUTH TWICE A DAY SOLD: 01/06/2021 [facility] 10 mg 01/02/2021 12:00:00 AM EDT tablet 90 TAKE ONE TABLET BY MOUTH EVERY DAY TAKE ONE TABLET BY MOUTH EVERY DAY SOLD: 01/02/2021 [facility] 200 mg 12/19/2020 12:00:00 AM EDT tablet 7 TAKE ONE TABLET BY MOUTH EVERY DAY TAKE ONE TABLET BY MOUTH EVERY DAY SOLD: 12/19/2020 [facility] 325 mg (65 mg iron) 12/15/2020 12:00:00 AM EDT tablet 30 TAKE ONE TABLET BY MOUTH EVERY DAY ON AN EMPTY STOMACH WITH VITAMIN CAPSULE TAKE ONE TABLET BY MOUTH EVERY DAY ON AN EMPTY STOMACH WITH VITAMIN CAPSULE SOLD: 12/15/2020 [facility] 325 mg (65 mg iron) 12/15/2020 12:00:00 AM EDT tablet 30 TAKE ONE TABLET BY MOUTH EVERY DAY ON AN EMPTY STOMACH WITH VITAMIN CAPSULE TAKE ONE TABLET BY MOUTH EVERY DAY ON AN EMPTY STOMACH WITH VITAMIN CAPSULE SOLD: 01/12/2021 [facility] 300 mg 12/14/2020 12:00:00 AM EDT capsule 180 TAKE ONE CAPSULE BY MOUTH TWICE A DAY MAXIMUM DAILY DOSE = 2 TAKE ONE CAPSULE BY MOUTH TWICE A DAY MA OMARM DAILY DOSE = 2 SOLD: 12/15/[address] [facility] 81 mg 12/13/2020 12:00:00 AM EDT tablet,delayed release (DR/EC) 30 TAKE ONE TABLET BY MOUTH EVERY DAY TAKE ONE TABLET BY MOUTH EVERY DAY SOLD: 02/09/2021 [facility] 81 mg 12/13/2020 12:00:00 AM EDT tablet,delayed release (DR/EC) 30 TAKE ONE TABLET BY MOUTH EVERY DAY TAKE ONE TABLET BY MOUTH EVERY DAY SOLD: 12/15/2020 [facility] 81 mg 12/13/2020 12:00:00 AM EDT tablet,delayed release (DR/EC) 30 TAKE ONE TABLET BY MOUTH EVERY DAY TAKE ONE TABLET BY MOUTH EVERY DAY SOLD: 01/12/2021 [facility] 50 mg 12/12/2020 12:00:00 AM EDT tablet 120 TAKE ONE TO TWO TABLETS BY MOUTH EVERY 6 HOURS NEEDED FOR PAIN MAXIMUM DAILY DOSE = 6 TAKE ONE TO TWO TABLETS BY MOUTH EVERY 6 HOURS NEEDED FOR PAIN MAXIMUM DAILY DOSE = 6 SOLD: 12/12/2020 [facility] 200 mg 12/09/2020 12:00:00 AM EDT tablet 7 TAKE ONE TABLET BY MOUTH EVERY DAY TAKE ONE TABLET BY MOUTH EVERY DAY SOLD: 12/09/2020 [facility] 10 mg 12/09/2020 12:00:00 AM EDT tablet 30 TAKE ONE TABLET BY MOUTH EVERY DAY TAKE ONE TABLET BY MOUTH EVERY DAY SOLD: 01/05/2021 [facility] 10 mg 12/09/2020 12:00:00 AM EDT tablet 30 TAKE ONE TABLET BY MOUTH EVERY DAY TAKE ONE TABLET BY MOUTH EVERY DAY SOLD: 12/09/2020 [facility] 40 mg 12/09/2020 12:00:00 AM EDT capsule,delayed release (DR/EC) 180 TAKE ONE CAPSULE BY MOUTH TWICE A DAY TAKE ONE CAPSULE BY MOUTH TWICE A DAY SOLD: 12/09/2020 [facility] 10 mg 12/09/2020 12:00:00 AM EDT tablet 7 TAKE ONE TABLET BY MOUTH EVERY DAY TAKE ONE TABLET BY MOUTH EVERY DAY SOLD: 02/02/2021 [facility] Escitalopram 20 MG Oral Tablet ESCITALOPRAM OXALATE 12/04/2020 1 2:00:00 AM EDT tablet 90 TAKE ONE TABLET BY MOUTH EVERY D AY TAKE ONE TABLET BY MOUTH EVERY DAY SOLD: 12/04/2020 [facility] 75 mg 11/28/2020 12:00:00 AM EDT tablet 90 TAKE ONE TABLET BY MOUTH EVERY DAY TAKE ONE TABLET BY MOUTH EVERY DAY SOLD: 11/28/2020 [facility] 50 mg 11/27/2020 12:00:00 AM EDT tablet 28 TAKE ONE TABLET BY MOUTH EVERY 6 HOURS FOR PAIN MAXIMUM DAILY DOSE = 4 TAKE ONE TABLET BY MOUTH EVERY 6 HOURS F OR PAIN MAXIMUM DAILY DOSE = 4 SOLD: 11/27/2020 [facility] 75 mg 11/26/2020 12:00:00 AM EDT capsule,extended releas e 24hr 90 TAKE ONE CAPSULE BY MOUTH EVERY DAY TAKE ONE CAPSULE BY MOUTH EVERY DAY SOLD: 11/27/2020 [facility] 400 mg 11/23/2020 12:00:00 AM EDT tablet extended release 57 TAKE ONE TABLET BY MOUTH THREE TIMES A DAY WITH FOOD TAKE ONE TABLET BY MOUTH THREE TIMES A D AY WITH FOOD SOLD: 12/23/2020 [facility] 400 mg 11/23/2020 12:00:00 AM EDT tablet extended release 90 TAKE ONE TABLET BY MOUTH THREE TIMES A DAY WITH FOOD TAKE ONE TABLET BY MOUTH THREE TIMES A D AY WITH FOOD SOLD: 11/24/2020 [facility] 200 mg 11/21/2020 12:00:00 AM EDT tablet 7 TAKE ONE TABLET BY MOUTH EVERY DAY TAKE ONE TABLET BY MOUTH EVERY DAY SOLD: 11/22/2020 [facility] 60 mg 11/21/2020 12:00:00 AM EDT capsule,delayed release (DR/EC) 60 TAKE ONE CAPSULE BY MOUTH TWICE A DAY TAKE ONE CAPSULE BY MOUTH TWICE A DAY SOLD: 11/22/2020 [facility] 10 mg 11/20/2020 12:00:00 AM EDT tablet 30 TAKE ONE TABLET BY MOUTH EVERY DAY TAKE ONE TABLET BY MOUTH EVERY DAY SOLD: 01/15/2021 [facility] 10 mg 11/20/2020 12:00:00 AM EDT tablet 30 TAKE ONE TABLET BY MOUTH EVERY DAY TAKE ONE TABLET BY MOUTH EVERY DAY SOLD: 11/20/2020 [facility] 10 mg 11/20/2020 12:00:00 AM EDT tablet 30 TAKE ONE TABLET BY MOUTH EVERY DAY TAKE ONE TABLET BY MOUTH EVERY DAY SOLD: 12/18/2020 [facility] BLOOD SUGAR DIAGNOSTIC 11/20/2020 12:00:00 AM EDT strip 150 TEST THREE TIMES A DAY WITH INSULIN USE TEST THREE TIMES A DAY WITH INSULIN USE SOLD: 01/02/2021 [facility] BLOOD SUGAR DIAGNOSTIC 11/20/2020 12:00:00 AM EDT strip 150 TEST THREE TIMES A DAY WITH INSULIN USE TEST THREE TIMES A DAY WITH INSULIN USE SOLD: 11/20/2020 [facility] 250 mg 11/11/2020 12:00:00 AM EDT capsule 28 TAKE ONE CAPSULE BY MOUTH FOUR TIMES A DAY TAKE ONE CAPSULE BY MOUTH FOUR TIMES A DAY SOLD: 11/12/2020 [facility] NITROFURANTOIN, MACROCRYSTALS 25 MG / Ni trofurantoin, Monohydrate 75 MG Oral Capsule 100 mg NITROFURANTOIN MONOHYD/M-CRYST 11/11/2020 12:00:00 AM EDT ca psule 10 TAKE ONE CAPSULE BY MOUTH TWICE A DAY WITH FOOD UNTIL GONE TAKE ONE CAPSULE BY MOUTH TWICE A DAY WITH FOOD UNTIL GONE SOLD: 11/11/2020 [facility] 24 HR Bupropion Hydrochloride 150 MG Extended Release Oral T ablet BUPROPION HCL 11/04/2020 12:00:00 AM EDT tablet extended release 24 hr 90 TAKE ONE TABLET BY MOUTH EVERY DAY TAKE ONE TABLET BY MOUTH EVERY DAY SOLD: 01/30/2021 [facility] 24 HR Bupropion Hydrochloride 150 MG Extended Release Oral T ablet BUPROPION HCL 11/04/2020 12:00:00 AM EDT tablet extended release 24 hr 90 TAKE ONE TABLET BY MOUTH EVERY DAY TAKE ONE TABLET BY MOUTH EVERY DAY SOLD: 11/04/2020 [facility] 50 mg 11/01/2020 12:00:00 AM EDT tablet 28 TAKE 1 TABLET BY MOUTH EVERY 6 HOURS NEEDED FOR PAIN MAXIMUM DAILY DOSE = 4 TAKE 1 TABLET BY MOUTH EVERY 6 HOURS NEEDED FOR PAIN MAXIMUM DAILY DOSE = 4 SOLD: 11/03/2020 [facility] 24 HR Bupropion Hydrochloride 300 MG Extended Release Oral T ablet BUPROPION HCL 11/01/2020 12:00:00 AM EDT tablet extended release 24 hr 90 TAKE ONE TABLET BY MOUTH EVERY DAY TAKE ONE TABLET BY MOUTH EVERY DAY SOLD: 11/03/2020 [facility] Nystatin 100 UNT/MG Topical Powder 100,000 unit/gram NYSTATI N 11/01/2020 12:00:00 AM EDT powder 15 APPLY TO UNDER A BDOMINAL FOLD AREA TWO TIMES A DAY NEEDED FOR RASH APPLY TO UNDER ABDOMINAL FOLD AREA TWO T IMES A DAY NEEDED FOR RASH SOLD: 11/03/2020 [facility] 24 HR Bupropion Hydrochloride 300 MG Extended Release Oral T ablet BUPROPION HCL 11/01/2020 12:00:00 AM EDT tablet extended release 24 hr 90 TAKE ONE TABLET BY MOUTH EVERY DAY TAKE ONE TABLET BY MOUTH EVERY DAY SOLD: 01/30/2021 [facility] 40 mg 11/01/2020 12:00:00 AM EDT capsule,delayed release (DR/EC) 90 TAKE ONE CAPSULE BY MOUTH EVERY DAY TAKE ONE CAPSULE BY MOUTH EVERY DAY SOLD: 11/03/2020 [facility] 80 mg 10/14/2020 12:00:00 AM EDT tablet 90 TAKE ONE TABLET BY MOUTH EVERY EVENING TAKE ONE TABLET BY MOUTH EVERY EVENING SOLD: 01/12/2021 [facility] 80 mg 10/14/2020 12:00:00 AM EDT tablet 90 TAKE ONE TABLET BY MOUTH EVERY EVENING TAKE ONE TABLET BY MOUTH EVERY EVENING SOLD: 10/16/2020 [facility] 90 mcg/actuation 10/07/2020 12:00:00 AM EDT HFA aerosol inha ler 18 INHALE ONE TO TWO PUFFS BY MOUTH EVERY 4 TO 6 HOURS NEEDED FOR SHORTNESS OF BREATH INHALE ONE TO TWO PUFFS BY MOUTH EVERY 4 TO 6 HOURS NEEDED FOR SHORTNESS OF BREATH SOLD: 12/30/2020 [facility] 90 mcg/actuation 10/07/2020 12:00:00 AM EDT HFA aerosol inha ler 18 INHALE ONE TO TWO PUFFS BY MOUTH EVERY 4 TO 6 HOURS NEEDED FOR SHORTNESS OF BREATH INHALE ONE TO TWO PUFFS BY MOUTH EVERY 4 TO 6 HOURS NEEDED FOR SHORTNESS OF BREATH SOLD: 10/07/2020 [facility] 90 mcg/actuation 10/07/2020 12:00:00 AM EDT HFA aerosol inha ler 18 INHALE ONE TO TWO PUFFS BY MOUTH EVERY 4 TO 6 HOURS NEEDED FOR SHORTNESS OF BREATH INHALE ONE TO TWO PUFFS BY MOUTH EVERY 4 TO 6 HOURS NEEDED FOR SHORTNESS OF BREATH SOLD: 12/02/2020 [facility] 90 mcg/actuation 10/07/2020 12:00:00 AM EDT HFA aerosol inha ler 18 INHALE ONE TO TWO PUFFS BY MOUTH EVERY 4 TO 6 HOURS NEEDED FOR SHORTNESS OF BREATH INHALE ONE TO TWO PUFFS BY MOUTH EVERY 4 TO 6 HOURS NEEDED FOR SHORTNESS OF BREATH SOLD: 11/04/2020 [facility] 400 mg 10/01/2020 12:00:00 AM EDT tablet extended release 90 TAKE ONE TABLET BY MOUTH THREE TIMES A DAY TAKE ONE TABLET BY MOUTH THREE TIMES A DAY SOLD: 10/28/2020 [facility] 400 mg 10/01/2020 12:00:00 AM EDT tablet extended release 90 TAKE ONE TABLET BY MOUTH THREE TIMES A DAY TAKE ONE TABLET BY MOUTH THREE TIMES A DAY SOLD: 10/01/2020 [facility] 31 gauge x 5/16" 09/09/2020 12:00:00 AM EDT needle 200 USE DIRECTED TWO TIMES A DAY USE DIRECTED TWO TIMES A DAY SOLD: 09/09/2020 [facility] 31 gauge x 5/16" 09/09/2020 12:00:00 AM EDT needle 200 USE DIRECTED TWO TIMES A DAY USE DIRECTED TWO TIMES A DAY SOLD: 12/06/2020 [facility] 10 mg 09/06/2020 12:00:00 AM EDT tablet 42 TAKE ONE TABLET BY MOUTH TWICE A DAY 30 MINUTES BEFORE MEALS TAKE ONE TABLET BY MOUTH TWICE A DAY 30 MINUTES BEFORE MEALS SOLD: 12/20/2020 [facility] 200 mg 09/06/2020 12:00:00 AM EDT tablet 7 TAKE ONE TABLET BY MOUTH EVERY DAY TAKE ONE TABLET BY MOUTH EVERY DAY SOLD: 09/06/2020 [facility] 10 mg 09/06/2020 12:00:00 AM EDT tablet 60 TAKE ONE TABLET BY MOUTH TWICE A DAY 30 MINUTES BEFORE MEALS TAKE ONE TABLET BY MOUTH TWICE A DAY 30 MINUTES BEFORE MEALS SOLD: 09/06/2020 [facility] 10 mg 09/06/2020 12:00:00 AM EDT tablet 60 TAKE ONE TABLET BY MOUTH TWICE A DAY 30 MINUTES BEFORE MEALS TAKE ONE TABLET BY MOUTH TWICE A DAY 30 MINUTES BEFORE MEALS SOLD: 11/22/2020 [facility] 5 mg 09/05/2020 12:00:00 AM EDT tablet 90 TAKE ONE TABLET BY MOUTH EVERY DAY TAKE ONE TABLET BY MOUTH EVERY DAY SOLD: 09/05/2020 [facility] Escitalopram 20 MG Oral Tablet ESCITALOPRAM OXALATE 09/03/2020 1 2:00:00 AM EDT tablet 90 TAKE ONE TABLET BY MOUTH EVERY D AY TAKE ONE TABLET BY MOUTH EVERY DAY SOLD: 09/03/2020 [facility] 325 mg (65 mg iron) 09/02/2020 12:00:00 AM EDT tablet 30 TAKE ONE TABLET BY MOUTH EVERY DAY ON AN EMPTY STOMACH WITH VITAMIN CAPSULE TAKE ONE TABLET BY MOUTH EVERY DAY ON AN EMPTY STOMACH WITH VITAMIN CAPSULE SOLD: 11/22/2020 [facility] 325 mg (65 mg iron) 09/02/2020 12:00:00 AM EDT tablet 20 TAKE ONE TABLET BY MOUTH EVERY DAY ON AN EMPTY STOMACH WITH VITAMIN CAPSULE TAKE ONE TABLET BY MOUTH EVERY DAY ON AN EMPTY STOMACH WITH VITAMIN CAPSULE SOLD: 09/29/2020 [facility] 325 mg (65 mg iron) 09/02/2020 12:00:00 AM EDT tablet 30 TAKE ONE TABLET BY MOUTH EVERY DAY ON AN EMPTY STOMACH WITH VITAMIN CAPSULE TAKE ONE TABLET BY MOUTH EVERY DAY ON AN EMPTY STOMACH WITH VITAMIN CAPSULE SOLD: 09/03/2020 [facility] 300 mg 09/02/2020 12:00:00 AM EDT capsule 90 TAKE ONE CAPSULE BY MOUTH TWICE A DAY MAXIMUM DAILY DOSE = 2 TAKE ONE CAPSULE BY MOUTH TWICE A DAY SARAHI RAIN DAILY DOSE = 2 SOLD: 09/08/2020 [facility] Cephalexin 500 MG Oral Capsule CEPHALEXIN 08/31/2020 12:00:00 AM EDT capsule 14 TAKE ONE CAPSULE BY MOUTH TWICE A DAY TAKE ONE CAPSULE BY MO [facility] TWICE A DAY SOLD: 09/01/2020 [facility] 0.4 mg 08/31/2020 12:00:00 AM EDT capsule 7 TAKE ONE CAPSULE BY MOUTH EVERY DAY ONCE DAILY 1/2 HOUR FOLLOWING THE SAME MEAL EACH DAY TAKE ONE CAPSULE BY MOUTH EVERY DAY ONCE DAILY 1/2 HOUR FOLLOWING THE SAME MEAL EACH DAY SOLD: 09/01/2020 [facility] 650 mg 08/31/2020 12:00:00 AM EDT tablet extended release 40 TAKE ONE TABLET BY MOUTH EVERY 8 HOURS NEEDED FOR PAIN TAKE ONE TABLET BY MOUTH EVERY 8 HOURS NEEDED FOR PAIN SOLD: 09/01/2020 [facility] 10 mg 08/31/2020 12:00:00 AM EDT tablet 10 TAKE ONE TABLET BY MOUTH THREE TIMES A DAY NEEDED FOR NAUSEA BEFORE FOOD AND BEDTIME TAKE ONE TABLET BY MOUTH THREE TIMES A DAY NEEDED FOR NAUSEA BEFORE FOOD AND BEDTIME SOLD: 09/01/2020 [facility] pantoprazole 40 MG Delayed Release Oral Tablet PANTOPRAZOLE SODIUM 08/30/2020 12:00:00 AM EDT tablet,delayed release (DR/EC) 90 T FITO ONE TABLET BY MOUTH EVERY DAY TAKE ONE TABLET BY MOUTH EVERY DAY SOLD: 08/30/2020 [facility] normal saline flush 0.9 % injection 3 mL [id number] 08/13/2020 02:00:00 PM EDT 3 mL Intravenous active 3 mL , Intravenous, Every 8 hours (scheduled), First dose on Wed08/13/20 at 1400, Pre-op
Rapid push positive pressure flushing shall be performed with a 10 cc normal saline syringe to check the PATENCY of a PIV site prior to any infusion therapy initiation unless resistance is met.
[facility] Medication administered onsite normal saline flush 0.9 % injection 3 mL [id number] 08/13/2020 02:00:00 PM EDT 3 mL Intravenous active 3 mL , Intravenous, Every 8 hours (scheduled), First dose on Wed08/13/20 at 1400, Pre-op
Rapid push positive pressure flushing shall be performed with a 10 cc normal saline syringe to check the PATENCY of a PIV site prior to any infusion therapy initiation unless resistance is met.
[facility] Medication administered onsite iodixanol (VISIPAQUE) 320 MG/ML injection 150 mL [id number] 08/13/2020 01:12:55 PM EDT 150 mL Intra-arterial completed 150 mL, Intra-arterial, Once in imaging, contrast, Starting on Wed08/13/20 at 1312, For 1 dose [facility] Medication administered onsite heparin (porcine) injection [id number] 08/13/2020 12:40:42 PM EDT completed Code/trauma/sedation medication, Starting on Wed08/13/20 at 1240 [facility] Medication administered onsite 2 ML Midazolam 1 MG/ML Injection midazolam (VERSED) in jection midazolam (VERSED) injection 08/13/2020 12:23:15 PM EDT Intravenous com pleted Intravenous, Code/trauma/sedation medication, Starting on Wed08/13/20 at 1223 [facility] Medication administered onsite fentaNYL Citrate (PF) (SUBLIMAZE) injection [id number] 08/13/2020 12:23:09 PM EDT Intravenous completed In travenous, Code/trauma/sedation medication, Starting on Wed08/13/20 at 1223 [facility] Medication administered onsite Magnesium Chloride 0.40781 MEQ/ML / Pota ssium Chloride 0.0497 MEQ/ML / Sodium Acetate 0.0163 MEQ/ML / Sodium Chloride 0.0899 MEQ/ML / Sodium gluconate 5.02 MG/ML Injectable Solution [Normosol-R] electrolyte-R (NORMOSOL-R/PLASMALYTE-R) solution electrolyte-R (NORMOSOL-R/PLASMALYTE-R) solution 08/13 11:00:00 AM EDT Intravenous active at 1 00 mL/hr, Intravenous, Continuous, Starting on Wed08/13/20 at 1100, Pre-op [facility] Medication administered onsite Magnesium Chloride 0.30229 MEQ/ML / Pota ssium Chloride 0.0497 MEQ/ML / Sodium Acetate 0.0163 MEQ/ML / Sodium Chloride 0.0899 MEQ/ML / Sodium gluconate 5.02 MG/ML Injectable Solution [Normosol-R] electrolyte-R (NORMOSOL-R/PLASMALYTE-R) solution electrolyte-R (NORMOSOL-R/PLASMALYTE-R) solution 08/13 11:00:00 AM EDT Intravenous active at 1 00 mL/hr, Intravenous, Continuous, Starting on Wed08/13/20 at 1100, Pre-op [facility] Medication administered onsite 200 mg 08/09/2020 12:00:00 AM EDT tablet 7 TAKE ONE TABLET BY MOUTH EVERY DAY TAKE ONE TABLET BY MOUTH EVERY DAY SOLD: 08/09/2020 [facility] 10 mg 08/08/2020 12:00:00 AM EDT tablet 25 TAKE ONE TABLET BY MOUTH EVERY DAY TAKE ONE TABLET BY MOUTH EVERY DAY SOLD: 10/21/2020 [facility] 10 mg 08/08/2020 12:00:00 AM EDT tablet 5 TAKE ONE TABLET BY MOUTH EVERY DAY TAKE ONE TABLET BY MOUTH EVERY DAY SOLD: 12/04/2020 [facility] 10 mg 08/08/2020 12:00:00 AM EDT tablet 25 TAKE ONE TABLET BY MOUTH EVERY DAY TAKE ONE TABLET BY MOUTH EVERY DAY SOLD: 11/13/2020 [facility] 10 mg 08/08/2020 12:00:00 AM EDT tablet 25 TAKE ONE TABLET BY MOUTH EVERY DAY TAKE ONE TABLET BY MOUTH EVERY DAY SOLD: 09/29/2020 [facility] 10 mg 08/08/2020 12:00:00 AM EDT tablet 25 TAKE ONE TABLET BY MOUTH EVERY DAY TAKE ONE TABLET BY MOUTH EVERY DAY SOLD: 09/06/2020 [facility] 10 mg 08/08/2020 12:00:00 AM EDT tablet 30 TAKE ONE TABLET BY MOUTH EVERY DAY TAKE ONE TABLET BY MOUTH EVERY DAY SOLD: 08/08/2020 [facility] 400 mg 08/04/2020 12:00:00 AM EDT tablet extended release 90 TAKE ONE TABLET BY MOUTH THREE TIMES A DAY TAKE ONE TABLET BY MOUTH THREE TIMES A DAY SOLD: 08/05/2020 [facility] 400 mg 08/04/2020 12:00:00 AM EDT tablet extended release 90 TAKE ONE TABLET BY MOUTH THREE TIMES A DAY TAKE ONE TABLET BY MOUTH THREE TIMES A DAY SOLD: 09/03/2020 [facility] Escitalopram 10 MG Oral Tablet ESCITALOPRAM OXALATE 07/27/2020 1 2:00:00 AM EDT tablet 30 TAKE ONE TABLET BY MOUTH EVERY D AY TAKE ONE TABLET BY MOUTH EVERY DAY SOLD: 11/22/2020 [facility] Escitalopram 10 MG Oral Tablet ESCITALOPRAM OXALATE 07/27/2020 1 2:00:00 AM EDT tablet 30 TAKE ONE TABLET BY MOUTH EVERY D AY TAKE ONE TABLET BY MOUTH EVERY DAY SOLD: 10/24/2020 [facility] Escitalopram 10 MG Oral Tablet ESCITALOPRAM OXALATE 07/27/2020 1 2:00:00 AM EDT tablet 30 TAKE ONE TABLET BY MOUTH EVERY D AY TAKE ONE TABLET BY MOUTH EVERY DAY SOLD: 09/26/2020 [facility] Escitalopram 10 MG Oral Tablet ESCITALOPRAM OXALATE 07/27/2020 1 2:00:00 AM EDT tablet 30 TAKE ONE TABLET BY MOUTH EVERY D AY TAKE ONE TABLET BY MOUTH EVERY DAY SOLD: 08/29/2020 [facility] Escitalopram 10 MG Oral Tablet ESCITALOPRAM OXALATE 07/27/2020 1 2:00:00 AM EDT tablet 30 TAKE ONE TABLET BY MOUTH EVERY D AY TAKE ONE TABLET BY MOUTH EVERY DAY SOLD: 07/28/2020 [facility] Escitalopram 10 MG Oral Tablet ESCITALOPRAM OXALATE 07/27/2020 1 2:00:00 AM EDT tablet 30 TAKE ONE TABLET BY MOUTH EVERY D AY TAKE ONE TABLET BY MOUTH EVERY DAY SOLD: 12/20/2020 [facility] 100 mg 07/23/2020 12:00:00 AM EDT capsule 60 TAKE ONE CAPSULE BY MOUTH TWICE A DAY TAKE ONE CAPSULE BY MOUTH TWICE A DAY SOLD: 07/23/2020 [facility] 100 mg 07/23/2020 12:00:00 AM EDT capsule 60 TAKE ONE CAPSULE BY MOUTH TWICE A DAY TAKE ONE CAPSULE BY MOUTH TWICE A DAY SOLD: 10/16/2020 [facility] 100 mg 07/23/2020 12:00:00 AM EDT capsule 60 TAKE ONE CAPSULE BY MOUTH TWICE A DAY TAKE ONE CAPSULE BY MOUTH TWICE A DAY SOLD: 08/20/2020 [facility] 100 mg 07/23/2020 12:00:00 AM EDT capsule 60 TAKE ONE CAPSULE BY MOUTH TWICE A DAY TAKE ONE CAPSULE BY MOUTH TWICE A DAY SOLD: 09/16/2020 [facility] 200 mg 07/23/2020 12:00:00 AM EDT tablet 7 TAKE ONE TABLET BY MOUTH EVERY DAY TAKE ONE TABLET BY MOUTH EVERY DAY SOLD: 07/23/2020 [facility] 60 mg 07/23/2020 12:00:00 AM EDT capsule,delayed release (DR/EC) 30 TAKE ONE CAPSULE BY MOUTH TWICE A DAY TAKE ONE CAPSULE BY MOUTH TWICE A DAY SOLD: 09/13/2020 [facility] 60 mg 07/23/2020 12:00:00 AM EDT capsule,delayed release (DR/EC) 60 TAKE ONE CAPSULE BY MOUTH TWICE A DAY TAKE ONE CAPSULE BY MOUTH TWICE A DAY SOLD: 07/23/2020 [facility] 60 mg 07/23/2020 12:00:00 AM EDT capsule,delayed release (DR/EC) 30 TAKE ONE CAPSULE BY MOUTH TWICE A DAY TAKE ONE CAPSULE BY MOUTH TWICE A DAY SOLD: 08/29/2020 [facility] 100 mg 07/23/2020 12:00:00 AM EDT capsule 60 TAKE ONE CAPSULE BY MOUTH TWICE A DAY TAKE ONE CAPSULE BY MOUTH TWICE A DAY SOLD: 12/09/2020 [facility] 100 mg 07/23/2020 12:00:00 AM EDT capsule 60 TAKE ONE CAPSULE BY MOUTH TWICE A DAY TAKE ONE CAPSULE BY MOUTH TWICE A DAY SOLD: 11/13/2020 [facility] 100 mg 07/11/2020 12:00:00 AM EDT tablet extended release 24 hr 15 TAKE ONE TABLET BY MOUTH EVERY 8 HOURS NEEDED FOR PAIN MAXIMUM DAILY DOSE = 3 TABLETS TAKE ONE TABLET BY MOUTH EVERY 8 HOURS NEEDED FOR PAIN MAXIMUM DAILY DOSE = 3 TABLETS SOLD: 07/11/2020 [facility] 325 mg 07/11/2020 12:00:00 AM EDT tablet 30 TAKE ONE TABLET BY MOUTH EVERY DAY TAKE ONE TABLET BY MOUTH EVERY DAY SOLD: 07/11/2020 [facility] 24 HR tramadol hydrochloride 100 MG Extended Release O ral Tablet Tramadol HCL ER 07/09/2020 12:00:00 AM EDT ORAL active [facility] ([facility]) 200 unit/mL (3 mL) 07/03/2020 12:00:00 AM EDT insulin pen 18 INJECT 50 UNITS UNDER THE SKIN TWO TIMES A DAY INJECT 50 UNITS UNDER THE SKIN TWO TIMES A DAY SOLD: 12/29/2020 [facility] 200 unit/mL (3 mL) 07/03/2020 12:00:00 AM EDT insulin pen 18 INJECT 50 UNITS UNDER THE SKIN TWO TIMES A DAY INJECT 50 UNITS UNDER THE SKIN TWO TIMES A DAY SOLD: 01/26/2021 [facility] 200 unit/mL (3 mL) 07/03/2020 12:00:00 AM EDT insulin pen 18 INJECT 50 UNITS UNDER THE SKIN TWO TIMES A DAY INJECT 50 UNITS UNDER THE SKIN TWO TIMES A DAY SOLD: 07/03/2020 [facility] 200 unit/mL (3 mL) 07/03/2020 12:00:00 AM EDT insulin pen 18 INJECT 50 UNITS UNDER THE SKIN TWO TIMES A DAY INJECT 50 UNITS UNDER THE SKIN TWO TIMES A DAY SOLD: 08/01/2020 [facility] 200 unit/mL (3 mL) 07/03/2020 12:00:00 AM EDT insulin pen 18 INJECT 50 UNITS UNDER THE SKIN TWO TIMES A DAY INJECT 50 UNITS UNDER THE SKIN TWO TIMES A DAY SOLD: 08/29/2020 [facility] 200 unit/mL (3 mL) 07/03/2020 12:00:00 AM EDT insulin pen 18 INJECT 50 UNITS UNDER THE SKIN TWO TIMES A DAY INJECT 50 UNITS UNDER THE SKIN TWO TIMES A DAY SOLD: 09/26/2020 [facility] 200 unit/mL (3 mL) 07/03/2020 12:00:00 AM EDT insulin pen 18 INJECT 50 UNITS UNDER THE SKIN TWO TIMES A DAY INJECT 50 UNITS UNDER THE SKIN TWO TIMES A DAY SOLD: 12/01/2020 [facility] 200 unit/mL (3 mL) 07/03/2020 12:00:00 AM EDT insulin pen 18 INJECT 50 UNITS UNDER THE SKIN TWO TIMES A DAY INJECT 50 UNITS UNDER THE SKIN TWO TIMES A DAY SOLD: 11/03/2020 [facility] 4 mg 06/27/2020 12:00:00 AM EST tablet 20 TAKE ONE TABLET BY MOUTH EVERY 6 HOURS TAKE ONE TABLET BY MOUTH EVERY 6 HOURS SOLD: 06/27/2020 [facility] 10 mg 06/26/2020 12:00:00 AM EST tablet 30 TAKE ONE TABLET BY MOUTH EVERY DAY TAKE ONE TABLET BY MOUTH EVERY DAY SOLD: 06/27/2020 [facility] 10 mg 06/26/2020 12:00:00 AM EST tablet 30 TAKE ONE TABLET BY MOUTH EVERY DAY TAKE ONE TABLET BY MOUTH EVERY DAY SOLD: 07/25/2020 [facility] 10 mg 06/26/2020 12:00:00 AM EST tablet 30 TAKE ONE TABLET BY MOUTH EVERY DAY TAKE ONE TABLET BY MOUTH EVERY DAY SOLD: 08/29/2020 [facility] 10 mg 06/26/2020 12:00:00 AM EST tablet 30 TAKE ONE TABLET BY MOUTH EVERY DAY TAKE ONE TABLET BY MOUTH EVERY DAY SOLD: 09/26/2020 [facility] 10 mg 06/26/2020 12:00:00 AM EST tablet 30 TAKE ONE TABLET BY MOUTH EVERY DAY TAKE ONE TABLET BY MOUTH EVERY DAY SOLD: 10/23/2020 [facility] 10 mg 06/26/2020 12:00:00 AM EST tablet 30 TAKE ONE TABLET BY MOUTH EVERY DAY TAKE ONE TABLET BY MOUTH EVERY DAY SOLD: 11/20/2020 [facility] ezetimibe 10 MG Oral Tablet ezetimibe (ZETIA) 10 MG ta blet ezetimibe (ZETIA) 10 MG tablet 06/21/2020 12:00:00 AM EST 10 mg Oral active Take 1 tablet (10 mg total) by mouth daily [facility] 75 mg 06/20/2020 12:00:00 AM EST tablet 15 TAKE ONE TABLET BY MOUTH EVERY DAY TAKE ONE TABLET BY MOUTH EVERY DAY SOLD: 08/29/2020 [facility] 75 mg 06/20/2020 12:00:00 AM EST tablet 15 TAKE ONE TABLET BY MOUTH EVERY DAY TAKE ONE TABLET BY MOUTH EVERY DAY SOLD: 10/09/2020 [facility] 75 mg 06/20/2020 12:00:00 AM EST tablet 15 TAKE ONE TABLET BY MOUTH EVERY DAY TAKE ONE TABLET BY MOUTH EVERY DAY SOLD: 09/13/2020 [facility] 75 mg 06/20/2020 12:00:00 AM EST tablet 30 TAKE ONE TABLET BY MOUTH EVERY DAY TAKE ONE TABLET BY MOUTH EVERY DAY SOLD: 07/25/2020 [facility] 75 mg 06/20/2020 12:00:00 AM EST tablet 30 TAKE ONE TABLET BY MOUTH EVERY DAY TAKE ONE TABLET BY MOUTH EVERY DAY SOLD: 06/27/2020 [facility] 75 mg 06/20/2020 12:00:00 AM EST tablet 15 TAKE ONE TABLET BY MOUTH EVERY DAY TAKE ONE TABLET BY MOUTH EVERY DAY SOLD: 11/03/2020 [facility] 75 mg 06/20/2020 12:00:00 AM EST tablet 15 TAKE ONE TABLET BY MOUTH EVERY DAY TAKE ONE TABLET BY MOUTH EVERY DAY SOLD: 10/21/2020 [facility] 75 mg 06/20/2020 12:00:00 AM EST tablet 15 TAKE ONE TABLET BY MOUTH EVERY DAY TAKE ONE TABLET BY MOUTH EVERY DAY SOLD: 11/17/2020 [facility] 75 mg 06/20/2020 12:00:00 AM EST tablet 15 TAKE ONE TABLET BY MOUTH EVERY DAY TAKE ONE TABLET BY MOUTH EVERY DAY SOLD: 09/26/2020 [facility] 200 mg 06/18/2020 12:00:00 AM EST tablet 7 TAKE ONE TABLET BY MOUTH EVERY DAY TAKE ONE TABLET BY MOUTH EVERY DAY SOLD: 06/27/2020 [facility] Fluconazole 200 MG Oral Tablet fluconazole (DIFLUCAN) 200 MG tablet fluconazole (DIFLUCAN) 200 MG tablet 06/18/2020 12:00:00 AM EST active [facility] 400 mg 06/13/2020 12:00:00 AM EST tablet extended release 90 TAKE ONE TABLET BY MOUTH THREE TIMES A DAY TAKE ONE TABLET BY MOUTH THREE TIMES A DAY SOLD: 07/11/2020 [facility] 400 mg 06/13/2020 12:00:00 AM EST tablet extended release 90 TAKE ONE TABLET BY MOUTH THREE TIMES A DAY TAKE ONE TABLET BY MOUTH THREE TIMES A DAY SOLD: 06/13/2020 [facility] 50 mg 06/07/2020 12:00:00 AM EST tablet 15 TAKE ONE TABLET BY MOUTH EVERY 8 HOURS NEEDED FOR PAIN MAXIMUM DAILY DOSE = 3 TAKE ONE TABLET BY MOUTH EVERY 8 HOURS NEEDED FOR PAIN MAXIMUM DAILY DOSE = 3 SOLD: 06/08/2020 [facility] tramadol hydrochloride 50 MG Oral Tablet Tramadol HCL 06/07/2020 12:00:00 AM EST ORAL completed [facility] ([facility]) tramadol hydrochloride 50 MG Oral Tablet traMADol (ULT MONICA) 50 MG tablet traMADol (ULTRAM) 50 MG tablet 06/07/2020 12:00:00 AM EST active TAKE ONE TABLET BY MOUTH EVERY 8 HOURS NEEDED FOR PAIN MAXIMUM DAILY DOSE 3 [facility] 5-325 mg 05/30/2020 12:00:00 AM EST tablet 21 TAKE ONE TABLET BY MOUTH EVERY 8 HOURS NEEDED FOR PAIN MAXIMUM DAILY DOSE = THREE TABLETS TAKE ONE TABLET BY MOUTH EVERY 8 HOURS NEEDED FOR PAIN MAXIMUM DAILY DOSE = THREE TABLETS SOLD: 05/30/2020 [facility] 10 mg 05/29/2020 12:00:00 AM EST tablet 30 TAKE ONE TABLET BY MOUTH EVERY DAY TAKE ONE TABLET BY MOUTH EVERY DAY SOLD: 06/27/2020 [facility] 10 mg 05/29/2020 12:00:00 AM EST tablet 30 TAKE ONE TABLET BY MOUTH EVERY DAY TAKE ONE TABLET BY MOUTH EVERY DAY SOLD: 05/29/2020 [facility] dapagliflozin 10 MG Oral Tablet [Farxiga] FARXIGA 10 MG TABS FARXIGA 10 MG TABS 05/29/2020 12:00:00 AM EST 1 {tbl} Oral active Take 1 tablet by mouth daily [facility] 10 mg 05/29/2020 12:00:00 AM EST tablet 30 TAKE ONE TABLET BY MOUTH EVERY DAY TAKE ONE TABLET BY MOUTH EVERY DAY SOLD: 10/23/2020 [facility] 10 mg 05/29/2020 12:00:00 AM EST tablet 30 TAKE ONE TABLET BY MOUTH EVERY DAY TAKE ONE TABLET BY MOUTH EVERY DAY SOLD: 09/26/2020 [facility] 10 mg 05/29/2020 12:00:00 AM EST tablet 30 TAKE ONE TABLET BY MOUTH EVERY DAY TAKE ONE TABLET BY MOUTH EVERY DAY SOLD: 08/29/2020 [facility] 10 mg 05/29/2020 12:00:00 AM EST tablet 30 TAKE ONE TABLET BY MOUTH EVERY DAY TAKE ONE TABLET BY MOUTH EVERY DAY SOLD: 07/25/2020 [facility] BLOOD SUGAR DIAGNOSTIC 05/28/2020 12:00:00 AM EST strip 100 TEST THREE TIMES A DAY WITH INSULIN USE TEST THREE TIMES A DAY WITH INSULIN USE SOLD: 05/28/19 21 [facility] BLOOD SUGAR DIAGNOSTIC 05/28/2020 12:00:00 AM EST strip 100 TEST THREE TIMES A DAY WITH INSULIN USE TEST THREE TIMES A DAY WITH INSULIN USE SOLD: 07/26/19 21 [facility] BLOOD SUGAR DIAGNOSTIC 05/28/2020 12:00:00 AM EST strip 100 TEST THREE TIMES A DAY WITH INSULIN USE TEST THREE TIMES A DAY WITH INSULIN USE SOLD: 06/28/19 21 [facility] BLOOD SUGAR DIAGNOSTIC 05/28/2020 12:00:00 AM EST strip 100 TEST THREE TIMES A DAY WITH INSULIN USE TEST THREE TIMES A DAY WITH INSULIN USE SOLD: 09/27/19 21 [facility] BLOOD SUGAR DIAGNOSTIC 05/28/2020 12:00:00 AM EST strip 100 TEST THREE TIMES A DAY WITH INSULIN USE TEST THREE TIMES A DAY WITH INSULIN USE SOLD: 08/30/19 21 [facility] BLOOD SUGAR DIAGNOSTIC 05/28/2020 12:00:00 AM EST strip 100 TEST THREE TIMES A DAY WITH INSULIN USE TEST THREE TIMES A DAY WITH INSULIN USE SOLD: 10/24/19 21 [facility] VITAMIN B COMPLEX 05/25/2020 12:00:00 AM EST capsule 30 TAKE ONE CAPSULE BY MOUTH EVERY DAY TAKE ONE CAPSULE BY MOUTH EVERY DAY SOLD: 06/27/2020 [facility] B Complex CAPS [id number] 05/25/2020 12:00:00 AM EST 1 {capsul e} Oral active Take 1 capsule by mouth daily [facility] VITAMIN B COMPLEX 05/25/2020 12:00:00 AM EST capsule 30 TAKE ONE CAPSULE BY MOUTH EVERY DAY TAKE ONE CAPSULE BY MOUTH EVERY DAY SOLD: 05/26/2020 [facility] B Complex 05/24/2020 12:00:00 AM EST ORAL active MEDENT ([facility] 5-325 mg 05/23/2020 12:00:00 AM EST tablet 21 TAKE ONE TABLET BY MOUTH EVERY 8 HOURS NEEDED FOR PAIN MAXIMUM DAILY DOSE = 3 TABLETS TAKE ONE TABLET BY MOUTH EVERY 8 HOURS NEEDED FOR PAIN MAXIMUM DAILY DOSE = 3 TABLETS SOLD: 05/23/2020 [facility] 200 mg 05/22/2020 12:00:00 AM EST tablet 7 TAKE ONE TABLET BY MOUTH EVERY DAY TAKE ONE TABLET BY MOUTH EVERY DAY SOLD: 05/22/2020 [facility] 60 mg 05/20/2020 12:00:00 AM EST capsule,delayed release (DR/EC) 60 TAKE ONE CAPSULE BY MOUTH TWICE A DAY TAKE ONE CAPSULE BY MOUTH TWICE A DAY SOLD: 06/27/2020 [facility] 60 mg 05/20/2020 12:00:00 AM EST capsule,delayed release (DR/EC) 60 TAKE ONE CAPSULE BY MOUTH TWICE A DAY TAKE ONE CAPSULE BY MOUTH TWICE A DAY SOLD: 05/20/2020 [facility] 81 MG Chewable Tablet aspirin 81 MG chewable t ablet aspirin 81 MG chewable tablet 05/20/2020 12:00:00 AM EST 81 mg Oral ac tive Chew 1 tablet (81 mg total) daily [facility] carvedilol 3.125 MG Oral Tablet carvedilol (COREG) tab let 3.125 mg carvedilol (COREG) tablet 3.125 mg 05/19/2020 09:00:00 AM EST 3.125 mg Oral active 3.125 mg, Oral, 2 times daily, First dos e on 05/19/20 at 0900
Hold for SBP <100 or HR <60
[facility] Medication administered onsite Magnesium Hydroxide 80 MG/ML Oral Suspen roxanne magnesium hydroxide (MILK OF MAGNESIA) 400 MG/5ML suspension 30 mL magnesium hydroxide (MILK OF MAGNESIA) 4 00 MG/5ML suspension 30 mL 05/19/2020 12:00:00 AM EST 30 mL Oral active 30 mL, Oral, Daily PRN, constipation, Starting 05/19/20 at 0000
If senna- docusate is not effective
[facility] Medication administered onsite carvedilol 3.125 MG Oral Tablet CARVEDILOL 05/19/2020 12:00:00 AM EST tablet 60 TAKE ONE TABLET BY MOUTH TWICE A DAY TAKE ONE TABLET BY MOUT H TWICE A DAY SOLD: 10/03/2020 [facility] 81 mg 05/19/2020 12:00:00 AM EST tablet,chewable 30 CHEW ONE TABLET BY MOUTH EVERY DAY CHEW ONE TABLET BY MOUTH EVERY DAY SOLD: 05/20/2020 [facility] 81 mg 05/19/2020 12:00:00 AM EST tablet,chewable 30 CHEW ONE TABLET BY MOUTH EVERY DAY CHEW ONE TABLET BY MOUTH EVERY DAY SOLD: 06/14/2020 [facility] 81 mg 05/19/2020 12:00:00 AM EST tablet,chewable 30 CHEW ONE TABLET BY MOUTH EVERY DAY CHEW ONE TABLET BY MOUTH EVERY DAY SOLD: 07/11/2020 [facility] carvedilol 3.125 MG Oral Tablet CARVEDILOL 05/19/2020 12:00:00 AM EST tablet 60 TAKE ONE TABLET BY MOUTH TWICE A DAY TAKE ONE TABLET BY MOUT H TWICE A DAY SOLD: 08/08/2020 [facility] carvedilol 3.125 MG Oral Tablet CARVEDILOL 05/19/2020 12:00:00 AM EST tablet 60 TAKE ONE TABLET BY MOUTH TWICE A DAY TAKE ONE TABLET BY MOUT H TWICE A DAY SOLD: 09/05/2020 [facility] 81 mg 05/19/2020 12:00:00 AM EST tablet,chewable 30 CHEW ONE TABLET BY MOUTH EVERY DAY CHEW ONE TABLET BY MOUTH EVERY DAY SOLD: 08/08/2020 [facility] carvedilol 3.125 MG Oral Tablet CARVEDILOL 05/19/2020 12:00:00 AM EST tablet 60 TAKE ONE TABLET BY MOUTH TWICE A DAY TAKE ONE TABLET BY MOUT H TWICE A DAY SOLD: 06/14/2020 [facility] carvedilol 3.125 MG Oral Tablet CARVEDILOL 05/19/2020 12:00:00 AM EST tablet 60 TAKE ONE TABLET BY MOUTH TWICE A DAY TAKE ONE TABLET BY MOUT H TWICE A DAY SOLD: 07/11/2020 [facility] 81 mg 05/19/2020 12:00:00 AM EST tablet,chewable 30 CHEW ONE TABLET BY MOUTH EVERY DAY CHEW ONE TABLET BY MOUTH EVERY DAY SOLD: 09/05/2020 [facility] 81 mg 05/19/2020 12:00:00 AM EST tablet,chewable 30 CHEW ONE TABLET BY MOUTH EVERY DAY CHEW ONE TABLET BY MOUTH EVERY DAY SOLD: 10/04/2020 [facility] carvedilol 3.125 MG Oral Tablet CARVEDILOL 05/19/2020 12:00:00 AM EST tablet 60 TAKE ONE TABLET BY MOUTH TWICE A DAY TAKE ONE TABLET BY MOUT H TWICE A DAY SOLD: 05/20/2020 [facility] carvedilol 3.125 MG Oral Tablet carvedilol (COREG) 3.1 25 MG tablet carvedilol (COREG) 3.125 MG tablet 05/19/2020 12:00:00 AM EST 3.125 mg Oral active Take 1 tablet (3.125 mg total) by mouth 2 (two) times a day [facility] clopidogrel 75 MG Oral Tablet clopidogrel (PLAVIX) 75 MG tablet clopidogrel (PLAVIX) 75 MG tablet 05/19/2020 12:00:00 AM EST 75 mg Oral active Take 1 tablet (75 mg total) by mouth daily [facility] Nitroglycerin 0.4 MG Sublingual Tablet n itroglycerin (NITROSTAT) 0.4 MG SL tablet nitroglycerin (NITROSTAT) 0.4 MG SL tablet 05/19/2020 12:00:00 A M EST 0.[address] 1 t ablet (0.4 mg total) under the tongue every 5 (five) minutes as needed for chest pain [facility] 0.4 mg 05/19/2020 12:00:00 AM EST tablet, sublingual 25 [address]ACE ONE TABLET UNDER THE TONGUE EVERY 5 MINUTES FOR UP TO 3 DOSES NEEDED FOR CHEST PAIN. IF CHEST PAIN STILL PERSISTS CONTACT [address] ONE TABLET UNDER THE TONGUE EVERY 5 MINUTES FOR UP TO 3 DOSES NEEDED FOR CHEST PAIN. IF CHEST PAIN STILL PERSISTS CONTACT 911 SOLD: 05/20/2020 [facility] Docusate Sodium 50 MG / sennosides, RESIDENTIAL 8.6 MG Oral Tablet senna-docusate (PERICOLACE) 8.6-50 MG 2 tablet senna-docusate (PERICOLACE) 8.6-50 MG 2 tablet 05/18/2020 09:00:00 PM EST 2 {tbl} Oral active 2 tablet, Oral, Nightly, First dose on 05/18/20 at 2100
hold for loose stools
[facility] Medication administered onsite sodium chloride 0.9% (NS) infusion [id number] 05/18/2020 05:00:00 P M EST Intravenous completed at 100 mL/hr, Intravenous, Continuous, Starting 05/18/20 at 1700, For 2 hours, Post-op [facility] Medication administered onsite Acetaminophen 325 MG Oral Tablet acetaminophen (TYLENO L) 325 MG tablet 650 mg acetaminophen (TYLENOL) 325 MG tablet 650 mg 05/18/2020 04:27:19 PM EST 650 mg Oral active 650 mg, Or al, Every 4 hours PRN, headaches, and non cardiac pain, Starting 05/18/20 at 1627, Post-op
"Maximum dose of acetaminophen is 4,000 mg from all sources in 24 hours."
[facility] Medication administered onsite Nitroglycerin 0.4 MG Sublingual Tablet n itroglycerin (NITROSTAT) SL tablet 0.4 mg nitroglycerin (NITROSTAT) SL tablet 0.4 mg 05/18/2020 04:27:19 P M EST 0.4 mg Sublingual active 0.4 mg, S ublingual, Every 5 min PRN, chest pain, Starting 05/18/20 at 1627, Post-op
May administer every 5 minutes for 3 doses and call cardio lab MD.
[facility] Medication administered onsite clopidogrel 75 MG Oral Tablet clopidogrel (PLAVIX) tab let clopidogrel (PLAVIX) tablet 05/18/2020 02:45:39 PM EST active As needed, Starting 05/18/20 at 1445, Intra-Procedure [facility] Medication administered onsite iopamidol (ISOVUE-370) 76 % [id number] 05/18/2020 02:41:58 PM EST active As needed, Starting 05/18/20 at 1441, Intra-Procedu re [facility] [facility] Medication administered onsite 1 ML heparin sodium, porcine 1000 UNT/ML Injection hep veronica (porcine) injection heparin (porcine) injection 05/18/2020 02:15:10 PM EST active As needed, Starting 05/18/20 at 1415, Intra-Procedure [facility] Medication administered onsite lidocaine 1 % injection [id number] 05/18/2020 01:59:12 PM EST active As needed, Starting 05/18/20 at 1359, Intra-Procedure [facility] Medication administered onsite 2 ML Midazolam 1 MG/ML Injection midazolam (VERSED) in jection midazolam (VERSED) injection 05/18/2020 01:56:45 PM EST active As needed, Starting 05/18/20 at 1356, Intra-Procedure [facility] Medication administered onsite fentaNYL Citrate (PF) (SUBLIMAZE) injection [id number] 05/18/2020 01:56:20 PM EST active As neede d, Starting 05/18/20 at 1356, Intra-Procedure [facility] Medication administered onsite Insulin Glargine 100 UNT/ML Injectable S olution [Lantus] insulin glargine (LANTUS) injection 20 Units insulin glargine (LANTUS) injection 20 Units 05/18/2020 10:00:00 AM EST 20 U Subcutaneous active 20 Units, Subcutaneous, 2 Times Daily (Lantus), First dose on 05/18/20 at 1000
Basal Insulin (Lantus) Adjustments based on AM Blood Glucose Blood Glucose&nbs p; Adjustment Less than 70 mg/dl Nursing to initiate hypoglycemia protocol 70 to 100 mg/dl &nb sp; Pharmacy to decrease total daily dose by 20% 101 to 200 mg/dl &nb sp; No Change
[facility] Medication administered onsite atorvastatin 80 MG Oral Tablet atorvastatin (LIPITOR) tablet 80 mg atorvastatin (LIPITOR) tablet 80 mg 05/18/2020 09:00:00 AM EST 80 mg Oral active 80 mg, Oral, Daily, First dose on 05/18/[address] [place] [address] Medication administered onsite 24 HR Bupropion Hydrochloride 150 MG Ext ended Release Oral Tablet buPROPion (WELLBUTRIN XL) 24 hr tablet 150 mg buPROPion (WELLBUTRIN XL) 24 hr tablet 1 50 mg 05/18/2020 09:00:00 AM EST 150 mg Oral active 150 mg, Oral, Daily, First dose on 05/18/20 at 00 [facility] Medication administered onsite clopidogrel 75 MG Oral Tablet clopidogrel (PLAVIX) tab let 75 mg clopidogrel (PLAVIX) tablet 75 mg 05/18/2020 09:00:00 AM EST 75 mg Oral active 75 mg, Oral, Daily, First dose on 05/18/20 at 00 [facility] Medication administered onsite Escitalopram 10 MG Oral Tablet escitalopram (LEXAPRO) tablet 20 mg escitalopram (LEXAPRO) tablet 20 mg 05/18/2020 09:00:00 AM EST 20 mg Oral active 20 mg, Oral, Daily, First dose on 05/18/[address] [place] [address] Medication administered onsite Lisinopril 5 MG Oral Tablet lisinopril (PRINIVIL,ZESTR IL) tablet 5 mg lisinopril (PRINIVIL,ZESTRIL) tablet 5 mg 05/18/2020 09:00:00 AM EST 5 mg O ral active 5 mg, Oral, Daily, First dose on 05/18/20 at 0900 [facility] Medication administered onsite Aspirin 81 MG Chewable Tablet aspirin chewable tablet 81 mg aspirin chewable tablet 81 mg 05/18/2020 09:00:00 AM EST 81 mg Oral activ e 81 mg, Oral, Daily, First dose on 05/18/20 at 0900 [facility] Medication administered onsite Loratadine 10 MG Oral Tablet loratadine (CLARITIN) tab let 10 mg loratadine (CLARITIN) tablet 10 mg 05/18/2020 09:00:00 AM EST 10 mg Oral active 10 mg, Oral, Daily, First dose on 05/18/20 at 0900 [facility] Medication administered onsite pantoprazole 40 MG Delayed Release Oral Tablet pantoprazole (PROTONIX) EC tablet 40 mg pantoprazole (PROTONIX) EC tablet 40 mg 05/18/2020 09:00:[address] 40 mg Oral active Gastroesophageal Reflux Diseas e 40 mg, Oral, Daily, Indications: Gastroesophageal Reflux Disease, First dose on 05/18/20 at 0900 [facility] Gastroesophageal Reflux Disease Medication administered onsite Insulin Lispro 100 UNT/ML Injectable Justa ution insulin lispro (HumaLOG) injection 2-20 Units insulin lispro (HumaLOG) injection 2-20 Units 05/18/19 08:00:00 AM EST Subcutaneous active 2-2 0 Units, Subcutaneous, MEALSS, First dose on 05/18/20 at 0800
10 units Nutritional and Correction Insulin Scale Blood Glucose (mg/dl) <70 start hypoglycemia protocol Glucose &nbsp ; Eats >=50% Eats <50% Eats Nothing (mg/dl) of meal of meal or NPO &a mp;nbsp;70- 120 7 units 3 units 0 units 121-170 10 units 5 units&n bsp; 0 units 171-220 &am p;nbsp; 12 units 7 units 2 units 221- 270 13 units 8 units 3 units&amp ;nbsp; 271- 320 15 units 10 units 5 units 321-370 &nbsp ; 17 units 12 units 7 units 371- 420 18 units &am p;nbsp; 13 units 8 units >420 call MD 20 units 15 units 10 units Test glucose within 30 minutes of insulin administration. Administer insulin within 15 minutes (before or after) of the patient starting to eat. For patients that are NPO, use the NPO (correction) scale to cover POC glucose at 08:00, 12:00, 17:00.
[facility] Medication administered onsite Pentoxifylline 400 MG Extended Release O ral Tablet pentoxifylline (TRENTal) CR tablet 400 mg pentoxifylline (TRENTal) CR tablet 400 mg 05/18/2020 0 8:00:00 AM EST 400 mg Oral active 400 mg, Oral, 3 times daily with meals, First dose on 05/18/20 at 0800 [facility] Medication administered onsite Albuterol 0.83 MG/ML Inhalant Solution a lbuterol (PROVENTIL) nebulizer solution 2.5 mg albuterol (PROVENTIL) nebulizer solution 2.5 mg 2020 08:00:00 AM EST 2.5 mg active 2.5 mg, Nebulization, 3 times daily, First dose on 05/18/20 at 0800 [facility] Medication administered onsite normal saline flush 0.9 % injection 3 mL [id number] 05/18/2020 06:00:00 AM EST 3 mL Intravenous active 3 mL , Intravenous, Every 8 hours (scheduled), First dose on 05/18/20 at 0600, Pre-op
Rapid push positive pressure flushing shall be performed with a 10 cc normal saline syringe to check the PATENCY of a PIV site prior to any infusion therapy initiation unless resistance is met.
[facility] Medication administered onsite normal saline flush 0.9 % injection 3 mL [id number] 05/18/2020 06:00:00 AM EST 3 mL Intravenous active 3 mL , Intravenous, PROTOCOL, First dose on 05/18/20 at 0600, Pre-op
flush per protocol, D/C Main IV fluid if appropriate
[facility] Medication administered onsite normal saline flush 0.9 % injection 3 mL [id number] 05/18/2020 06:00:00 AM EST 3 mL Intravenous active 3 mL , Intravenous, Every 8 hours (scheduled), First dose on 05/18/20 at 0600, Pre-op
Rapid push positive pressure flushing shall be performed with a 10 cc normal saline syringe to check the PATENCY of a PIV site prior to any infusion therapy initiation unless resistance is met.
[facility] Medication administered onsite normal saline flush 0.9 % injection 3 mL [id number] 05/18/2020 06:00:00 AM EST 3 mL Intravenous active 3 mL , Intravenous, Every 8 hours (scheduled), First dose on 05/18/20 at 0600
Rapid push positive pressure flushing shall be performed with a 10 cc normal saline syringe to check the PATENCY of a PIV site prior to any infusion therapy initiation unless resistance is met.
[facility] Medication administered onsite sodium chloride 0.9% (NS) infusion [id number] 05/18/2020 05:00:00 AM EST 100 mL/h Intravenous aborted at 100 m L/hr, 100 mL/hr, Intravenous, Continuous, Starting 05/18/20 at 0500, Pre-op
Start two hours prior to scheduled start time
[facility] Medication administered onsite pregabalin 100 MG Oral Capsule pregabalin (LYRICA) cap memo 200 mg pregabalin (LYRICA) capsule 200 mg 05/18/2020 04:00:00 AM EST 200 mg Oral active 200 mg, Oral, 2 times daily, First dose on 05/18/20 at 0400, For 7 days [facility] Medication administered onsite Albuterol 0.83 MG/ML Inhalant Solution a lbuterol (PROVENTIL) nebulizer solution 2.5 mg albuterol (PROVENTIL) nebulizer solution 2.5 mg 2020 03:17:55 AM EST 2.5 mg active 2.5 mg, Nebulization, Every 4 hours PRN, wheezing, shortness of breath, Starting 05/18/20 at 0317 [facility] Medication administered onsite Mineral Oil 1000 MG/ML Enema mineral oil enema 1 enema mineral oil enema 1 enema 05/18/2020 02:39:32 AM EST 1 {enema} Rectal active 1 enema, Rectal, Daily PRN, constipation, unrelieved by MOM/bisacodyl/senna-docusate, Starting 05/18/20 at 0239
hold for loose stools
[facility] Medication administered onsite Bisacodyl 10 MG Rectal Suppository bisacodyl (DULCOLAX ) suppository 10 mg bisacodyl (DULCOLAX) suppository 10 mg 05/18/2020 02:39:32 AM EST 10 mg Rectal active 10 mg, Rectal, Daily PRN, constipation, Starting 05/18/20 at 0239
Hold for BM. If senna-docusate and milk of magnesia are not effective
[facility] Medication administered onsite ondansetron (ZOFRAN) injection 4 mg [id number] 05/18/2020 02:39:2 3 AM EST 4 mg Intravenous active 4 mg, In travenous, Every 4 hours PRN, nausea, vomiting, Starting 05/18/20 at 0239 [facility] Medication administered onsite 2 ML Metoclopramide 5 MG/ML Prefilled Sy ringe metoclopramide (REGLAN) injection 10 mg metoclopramide (REGLAN) injection 10 mg 05/18/2020 02:39:[address] 10 mg Intravenous active 10 mg, I ntravenous, Every 6 hours PRN, for Nausea/Vomiting not relieved by zofran, Starting 05/18/20 at 0239 [facility] Medication administered onsite Cyclobenzaprine hydrochloride 10 MG Oral Tablet cyclobenzaprine (FLEXERIL) tablet 5 mg cyclobenzaprine (FLEXERIL) tablet 5 mg 05/18/2020 02:35:25 AM ES T 5 mg Oral active 5 mg, Oral , 2 times daily PRN, muscle spasms, Starting 05/18/20 at 0235 [facility] Medication administered onsite 500 ML heparin sodium, porcine 50 UNT/ML Injection heparin infusion 25,000 units in 500 mL 0.45% NaCl heparin infusion 25,000 units in 500 mL 0.45% NaCl 05/18/2020 02:00:00 AM EST 15 U/kg/h Intravenous aborted 15 Units/kg/hr 76.2 kg (22.86 mL/hr, rounded to 22.9 mL/hr), Intravenous, at 22.9 mL/hr, Continuous, Starting 05/18/20 at 0200
For Cardiac/BridgeaPTT (seconds) Heparin Dose (weight based)< 34 Bolus: 60 units/kg IV (Maximum bolus: 5,000 units) and increase infusion 3 units/kg/hr IV34 - 50 Bolus: 30 units/kg IV (Maximum bolus: 5,000 units) and increase infusion 2 units/kg/hr IV50.1 - 58 No bolus. Increase infusion 1 unit/kg/hr IV58.1 - 87 Therapeutic, No Beohym04.1 - 97 Decrease infusion 1 unit/kg/hr IV 97.1 - 110Hold infusion for 30 minutes & decrease infusion 2 units/kg/hr IV> 110 Call MD if patient is bleeding. Hold infusion for 60 minutes & decrease infusion 3 units/kg/hr IVInitial heparin IV infusion rate:Do not exceed 1000 units/hr or 12 units/kg/hr initially (whichever is less)Infuse this medication only through single port tubing ([facility] Infusion Set ref [id number]). Medication and tubing is to be discarded if infusion off for 4 hours.
[facility] Medication administered onsite 1 ML heparin sodium, porcine 1000 UNT/ML Injection heparin (porcine) injection 100-5,000 Units heparin (porcine) injection 100-5,000 Units 05/18/2020 01:35:48 AM EST Intravenous aborted 100- 5,000 Units, Intravenous, As needed, other, Starting 05/18/20 at 0135
Round dose to nearest 100 units aPTT: < 34 &n bsp; Bolus: 60 units/kg IV (Maximum bolus: 5,000 units) 34 - 50 Bolus: 30 units/kg IV (Maximum bolus: 5,000 units)
[facility] Medication administered onsite 5 mg 05/18/2020 12:00:00 AM EST tablet 14 TAKE ONE TABLET BY MOUTH EVERY 12 HOURS NEEDED FOR SPASMS TAKE ONE TABLET BY MOUTH EVERY 12 HOURS NEEDED FOR SPASMS SOLD: 05/20/2020 [facility] Cyclobenzaprine hydrochloride 5 MG Oral Tablet CYCLOBENZAPRI NE HCL 05/18/2020 12:00:00 AM EST tablet 14 TAKE ONE TABLET BY MOUTH EVERY 12 HOURS NEEDED FOR SPASMS TAKE ONE TABLET BY MOUTH EVERY 12 HOURS NEEDED FOR SPASMS SOLD: 06/09/2020 [facility] 10 mg 05/17/2020 12:00:00 AM EST tablet 18 TAKE ONE TABLET BY MOUTH TWICE A DAY 30 MINUTES BEFORE MEALS TAKE ONE TABLET BY MOUTH TWICE A DAY 30 MINUTES BEFORE MEALS SOLD: 07/11/2020 [facility] 10 mg 05/17/2020 12:00:00 AM EST tablet 30 TAKE ONE TABLET BY MOUTH TWICE A DAY 30 MINUTES BEFORE MEALS TAKE ONE TABLET BY MOUTH TWICE A DAY 30 MINUTES BEFORE MEALS SOLD: 08/29/2020 [facility] 5-325 mg 05/17/2020 12:00:00 AM EST tablet 14 TAKE ONE TABLET BY MOUTH EVERY 12 HOURS NEEDED FOR PAIN MAXIMUM DAILY DOSE = 2 TABLETS TAKE ONE TABLET BY MOUTH EVERY 12 HOURS NEEDED FOR PAIN MAXIMUM DAILY DOSE = 2 TABLETS SOLD: 05/20/2020 [facility] 10 mg 05/17/2020 12:00:00 AM EST tablet 60 TAKE ONE TABLET BY MOUTH TWICE A DAY 30 MINUTES BEFORE MEALS TAKE ONE TABLET BY MOUTH TWICE A DAY 30 MINUTES BEFORE MEALS SOLD: 05/20/2020 [facility] Acetaminophen 325 MG / Hydrocodone Bitartrate 5 MG Ora l Tablet Hydrocodone-Acetaminophen 05/17/2020 12:00:00 AM EST ORAL active [facility] ([facility] 10 mg 05/17/2020 12:00:00 AM EST tablet 60 TAKE ONE TABLET BY MOUTH TWICE A DAY 30 MINUTES BEFORE MEALS TAKE ONE TABLET BY MOUTH TWICE A DAY 30 MINUTES BEFORE MEALS SOLD: 07/20/2020 [facility] 200 mg 05/16/2020 12:00:00 AM EST capsule 180 TAKE ONE CAPSULE BY MOUTH TWICE A DAY MAXIMUM DAILY DOSE = 2 CAPSULES TAKE ONE CAPSULE BY MOUTH TWICE A DAY MAXIMUM DAILY DOSE = 2 CAPSULES SOLD: 05/16/2020 [facility] 300 mg 05/16/2020 12:00:00 AM EST capsule 180 TAKE ONE CAPSULE BY MOUTH TWICE A DAY MAXIMUM DAILY DOSE = 2 CAPSULE TAKE ONE CAPSULE BY MOUTH TWICE A DAY MAXIMUM DAILY DOSE = 2 CAPSULE SOLD: 05/16/2020 [facility] Vitamin B 12 1 MG Oral Tablet vitamin B-12 (CYANOCOBAL KAPLAN) 1000 MCG tablet vitamin B-12 (CYANOCOBALAMIN) 1000 MCG tablet 05/16/2020 12:00:00 AM EST 1000 ug Oral active Take 1,000 mcg by mouth daily [facility] 1,000 mcg 05/16/2020 12:00:00 AM EST tablet 90 TAKE ONE TABLET BY MOUTH EVERY DAY TAKE ONE TABLET BY MOUTH EVERY DAY SOLD: 05/16/2020 [facility] 5-325 mg 05/14/2020 [...] CAPSULE BY MOUTH TWICE A DAY SOLD: 08/09/2020 [facility] 40 mg 05/13/2020 12:00:00 AM EST capsule,delayed release (DR/EC) 180 TAKE ONE CAPSULE BY MOUTH TWICE A DAY TAKE ONE CAPSULE BY MOUTH TWICE A DAY SOLD: 05/13/2020 [facility] 325 mg 05/13/2020 12:00:00 AM EST tablet 30 TAKE ONE TABLET BY MOUTH EVERY DAY TAKE ONE TABLET BY MOUTH EVERY DAY SOLD: 05/13/2020 [facility] 325 mg 05/13/2020 12:00:00 AM EST tablet 30 TAKE ONE TABLET BY MOUTH EVERY DAY TAKE ONE TABLET BY MOUTH EVERY DAY SOLD: 06/13/2020 [facility] 24 HR Bupropion Hydrochloride 150 MG Extended Release Oral T ablet BUPROPION HCL 05/12/2020 12:00:00 AM EST tablet extended release 24 hr 90 TAKE ONE TABLET BY MOUTH EVERY DAY TAKE ONE TABLET BY MOUTH EVERY DAY SOLD: 05/12/2020 [facility] 24 HR Bupropion Hydrochloride 150 MG Extended Release Oral T ablet BUPROPION HCL 05/12/2020 12:00:00 AM EST tablet extended release 24 hr 90 TAKE ONE TABLET BY MOUTH EVERY DAY TAKE ONE TABLET BY MOUTH EVERY DAY SOLD: 08/08/2020 [facility] 5-325 mg 05/09/2020 12:00:00 AM EST tablet 14 TAKE ONE TABLET BY MOUTH EVERY 12 HOURS NEEDED FOR PAIN MAXIMUM DAILY DOSE = 2 TABLETS TAKE ONE TABLET BY MOUTH EVERY 12 HOURS NEEDED FOR PAIN MAXIMUM DAILY DOSE = 2 TABLETS SOLD: 05/09/2020 [facility] pantoprazole 40 MG Delayed Release Oral Tablet PANTOPRAZOLE SODIUM 05/07/2020 12:00:00 AM EST tablet,delayed release (DR/EC) 90 T FITO ONE TABLET BY MOUTH EVERY DAY TAKE ONE TABLET BY MOUTH EVERY DAY SOLD: 05/09/2020 [facility] pantoprazole 40 MG Delayed Release Oral Tablet pantoprazole (PROTONIX) 40 MG tablet pantoprazole (PROTONIX) 40 MG tablet 05/07/2020 12:00:00 AM EST 40 mg Oral active Take 40 mg by mouth daily [facility] 200 mg 05/06/2020 12:00:00 AM EST tablet 7 TAKE ONE TABLET BY MOUTH EVERY DAY TAKE ONE TABLET BY MOUTH EVERY DAY SOLD: 05/09/2020 [facility] Protonix 40 MG Protonix 05/03/2020 12:00:00 AM EST 1.0 {tablet} completed [facility] ([facility]) 5-325 mg 05/02/2020 12:00:00 AM [...] = 2 TABLETS SOLD: 05/02/2020 [facility] Nystatin 100 UNT/MG Topical Powder nystatin (MYCOSTATI N) powder nystatin (MYCOSTATIN) powder 04/29/2020 12:00:00 AM EST act guevara [facility] 80 mg 2020 12:00:00 AM EST tablet 90 TAKE ONE TABLET BY MOUTH EVERY EVENING TAKE ONE TABLET BY MOUTH EVERY EVENING SOLD: 2020 [facility] 5-325 mg 2020 12:00:00 AM EST tablet 14 TAKE ONE TABLET BY MOUTH EVERY 12 HOURS NEEDED FOR PAIN MAXIMUM DAILY DOSE = TWO TABLETS TAKE ONE TABLET BY MOUTH EVERY 12 HOURS NEEDED FOR PAIN MAXIMUM DAILY DOSE = TWO TABLETS SOLD: 2020 [facility] 5 mg 2020 12:00:00 AM EST tablet 14 TAKE ONE TABLET BY MOUTH EVERY 12 HOURS NEEDED FOR SPASMS TAKE ONE TABLET BY MOUTH EVERY 12 HOURS NEEDED FOR SPASMS SOLD: 2020 [facility] 80 mg 2020 12:00:00 AM EST tablet 30 TAKE ONE TABLET BY MOUTH EVERY EVENING TAKE ONE TABLET BY MOUTH EVERY EVENING SOLD: 08/19/2020 [facility] 80 mg 2020 12:00:00 AM EST tablet 30 TAKE ONE TABLET BY MOUTH EVERY EVENING TAKE ONE TABLET BY MOUTH EVERY EVENING SOLD: 09/16/2020 [facility] 80 mg 2020 12:00:00 AM EST tablet 30 TAKE ONE TABLET BY MOUTH EVERY EVENING TAKE ONE TABLET BY MOUTH EVERY EVENING SOLD: 07/23/2020 [facility] Amoxicillin 875 MG / Clavulanate 125 MG Oral Tablet amoxicillin-clavulanate (AUGMENTIN) 875-125 MG per tablet amoxicillin-clavulanate (AUGMENTIN) 875- 125 MG per tablet 04/25/2020 12:00:00 AM EST aborted [facility] 875-125 mg 04/25/2020 12:00:00 AM EST tablet 20 TAKE ONE TABLET BY MOUTH EVERY 12 HOURS TAKE ONE TABLET BY MOUTH EVERY 12 HOURS SOLD: 04/25/2020 [facility] 400 mg 04/22/2020 12:00:00 AM EST tablet extended release 90 TAKE ONE TABLET BY MOUTH THREE TIMES A DAY TAKE ONE TABLET BY MOUTH THREE TIMES A DAY SOLD: 05/20/2020 [facility] 400 mg 04/22/2020 12:00:00 AM EST tablet extended release 90 TAKE ONE TABLET BY MOUTH THREE TIMES A DAY TAKE ONE TABLET BY MOUTH THREE TIMES A DAY SOLD: 04/22/2020 [facility] 5-325 mg 04/22/2020 12:00:00 AM EST tablet 30 TAKE ONE TABLET BY MOUTH EVERY 4 HOURS NEEDED FOR PAIN MAXIMUM DAILY DOSE = 6 TAKE ONE TABLET BY MOUTH EVERY 4 HOURS NEEDED FOR PAIN MAXIMUM DAILY DOSE = 6 SOLD: 04/22/2020 [facility] 150 mg 04/20/2020 12:00:00 AM EST capsule 60 TAKE ONE CAPSULE BY MOUTH TWICE A DAY MAXIMUM DAILY DOSE = 2 CAPSULES TAKE ONE CAPSULE BY MOUTH TWICE A DAY MAXIMUM DAILY DOSE = 2 CAPSULES SOLD: 04/21/2020 [facility] Steglatro 15 MG Steglatro 04/16/2020 12:00:00 AM EST 15.0 {mg} completed [facility] ([facility]) Amoxicillin-Pot Clavulanate 875-125 MG Amoxicillin-Pot Clavu lanate 04/16/2020 12:00:00 AM EST 1.0 {tablet} completed [facility] ([facility]) Insulin Lispro 100 UNT/ML Injectable Justa ution insulin lispro (HumaLOG) injection 1-10 Units insulin lispro (HumaLOG) injection 1-10 Units 04/15/20 08:00:00 AM EST Subcutaneous active 1-1 0 Units, Subcutaneous, MEALSS, First dose on Wed04/15/20 at 0800
5 units Nutritional and Correction Insulin Scale Blood Glucose (mg/dl) <70 start hypoglycemia protocol Glucose &nbsp ; Eats >=50% Eats <50% Eats Nothing (mg/dl) of meal of meal or NPO &a mp;nbsp;70- 120 3 units 2 units 0 units 121-170 5 units 3 units 0 units 171-220 &amp ;nbsp; 6 units 3 units 1 units 221-270 &nbs p; 7 units 4 units 2 units 271- 320 8 units 5 units 3 units 321- 370 8 units 6 units 3 units & nbsp;371- 420 9 units 7 units 4 units >420 call MD 10 units 8 units 5 units Test glucose within 30 minutes of insulin administration. Administer insulin within 15 minutes (before or after) of the patient starting to eat. For patients that are NPO, use the NPO (correction) scale to cover POC glucose at 08:00, 12:00, 17:00.
[facility] Medication administered onsite Amoxicillin 875 MG / Clavulanate 125 MG Oral Tablet amoxicillin-clavulanate (AUGMENTIN) 875-125 MG per tablet amoxicillin-clavulanate (AUGMENTIN) 875- 125 MG per tablet 04/15/2020 12:00:00 AM EST 1 {tbl} Oral activ e Take 1 tablet by mouth 2 (two) times a day for 2 days [facility] 875-125 mg 04/15/2020 12:00:00 AM EST tablet 4 TAKE ONE TABLET BY MOUTH TWICE A DAY FOR 2 DAYS TAKE ONE TABLET BY MOUTH TWICE A DAY FOR 2 DAYS SOLD: 04/21/2020 [facility] ampicillin-sulbactam (UNASYN) 3 g in sodium chloride 0.9% (N S) 100 mL PIGTAIL 04/14/2020 01:00:00 PM EST 3 g Intravenous a ctive Skin and Soft Tissue Infection 3 g, Intravenous, Administer over 30 Minutes, Every 6 hours (relative), First dose on 04/14/20 at 1300 [facility] Skin and Soft Tissue Infection Medication administered onsite Insulin Glargine 100 UNT/ML Injectable S olution [Lantus] insulin glargine (LANTUS) injection 20 Units insulin glargine (LANTUS) injection 20 Units 04/14/2020 12:00:00 PM EST 20 U Subcutaneous active 20 Units, Subcutaneous, Daily (Lantus), First dose on 04/14/20 at 1200 [facility] Medication administered onsite 200 mg 04/14/2020 12:00:00 AM EST tablet 7 TAKE ONE TABLET BY MOUTH EVERY DAY TAKE ONE TABLET BY MOUTH EVERY DAY SOLD: 04/14/2020 [facility] Fluconazole 200 MG Oral Tablet fluconazole (DIFLUCAN) 200 MG tablet fluconazole (DIFLUCAN) 200 MG tablet 04/14/2020 12:00:00 AM EST 200 mg Oral aborted Take 200 mg by mouth daily [facility] vancomycin HCl (VANCOCIN) 750 mg in dextrose 5 % 250 mL IVPB 04/13/2020 09:00:00 PM EST 750 mg Intravenous aborted Sk in and Soft Tissue InfectionSepsis 750 mg, Intravenous, Adminis ter over 1 Hours, Every 12 hours (relative), First dose on 04/13/20 at 2100 [facility] Skin and Soft Tissue Infection Sepsis [...] Drugs in the Workplace Policy on Intranet.
[facility] Skin and Soft Tissue Infection Medication administered onsite Insulin Glargine 100 UNT/ML Injectable S olution [Lantus] insulin glargine (LANTUS) injection 20 Units insulin glargine (LANTUS) injection 20 Units 04/13/2020 10:00:00 AM EST 20 U Subcutaneous aborted 20 Units, Subcutaneous, 2 Times Daily (Lantus), First dose on Wed04/13/20 at 1000 [facility] Medication administered onsite Insulin Lispro 100 UNT/ML Injectable Justa ution insulin lispro (HumaLOG) injection 2-28 Units insulin lispro (HumaLOG) injection 2-28 Units 04/12/20 05:00:00 PM EST Subcutaneous aborted 2-2 8 Units, Subcutaneous, MEALSS, First dose on Wed04/12/20 at 1700
14 units Nutritional and Correction Insulin Scale Blood Glucose (mg/dl) <70 start hypoglycemia protocol Glucose &nbsp ; Eats >=50% Eats <50% Eats Nothing (mg/dl) of meal of meal or NPO &a mp;nbsp;70- 120 9 units 5 units 0 units 121-170 14 units 7 units&n bsp; 0 units 171-220 &am p;nbsp; 16 units 9 units 2 units 221- 270 19 units 12 units 5 units 271- 320 21 units 14 units& amp;nbsp; 7 units 321-370 &nbs p; 23 units 16 units 9 units 371- 420 26 units 19 units 12 units >420 call MD 28 units 21 units 14 units &am p;nbsp;Test glucose within 30 minutes of insulin administration. Administer insulin within 15 minutes (before or after) of the patient starting to eat. For patients that are NPO, use the NPO (correction) scale to cover POC glucose at 08:00, 12:00, 17:00.
[facility] Medication administered onsite Miconazole Nitrate 0.02 MG/MG Topical Po wder miconazole (REMEDY PHYTOPLEX AF) 2 % powder 1 application miconazole (REMEDY PHYTOPLEX AF) 2 % pow miriam 1 application 04/12/2020 12:00:00 PM EST 1 {application} Topical a ctive 1 application, Topical, 2 times daily, First dose on Wed04/12/20 at 1200, Until Discontinued [facility] Medication administered onsite Insulin Glargine 100 UNT/ML Injectable S olution [Lantus] insulin glargine (LANTUS) injection 24 Units insulin glargine (LANTUS) injection 24 Units 04/12/2020 11:00:00 AM EST 24 U Subcutaneous aborted 24 Units, Subcutaneous, 2 Times Daily (Lantus), First dose on Wed04/12/20 at 1100 [facility] Medication administered onsite vancomycin (VANCOCIN) IVPB 1,000 mg [id number] 04/11/2020 08:00:0 0 PM EST 1000 mg Intravenous aborted Skin and Soft Tissue Infecti onSepsis 1,000 mg, Intravenous, Administer over 1 Hours, Every 12 hours (relative), First dose on Em 04/11/20 at 2000 [facility] Skin and Soft Tissue Infection Sepsis Medication administered onsite Insulin Glargine 100 UNT/ML Injectable S olution [Lantus] insulin glargine (LANTUS) injection 30 Units insulin glargine (LANTUS) injection 30 Units 04/11/2020 10:00:00 AM EST 30 U Subcutaneous aborted 30 Units, Subcutaneous, 2 Times Daily (Lantus), First dose on Em 04/11/20 at 1000 [facility] Medication administered onsite iopamidol (ISOVUE-370) 76 % 120 mL [id number] 04/11/2020 09:22:28 AM EST 120 mL Intravenous completed 120 mL, Intra venous, Once in imaging, contrast, Starting Em 04/11/20 at 0922, For 1 dose [facility] Medication administered onsite 24 HR Bupropion Hydrochloride 150 MG Ext ended Release Oral Tablet buPROPion (WELLBUTRIN XL) 24 hr tablet 150 mg buPROPion (WELLBUTRIN XL) 24 hr tablet 1 50 mg 04/11/2020 09:00:00 AM EST 150 mg Oral active 150 mg, Oral, Daily, First dose on Em 04/11/20 at 0900 [facility] Medication administered onsite clopidogrel 75 MG Oral Tablet clopidogrel (PLAVIX) tab let 75 mg clopidogrel (PLAVIX) tablet 75 mg 04/11/2020 09:00:00 AM EST 75 mg Oral active 75 mg, Oral, Daily, First dose on Em 04/11/20 at 0900 [facility] Medication administered onsite Loratadine 10 MG Oral Tablet loratadine (CLARITIN) tab let 10 mg loratadine (CLARITIN) tablet 10 mg 04/11/2020 09:00:00 AM EST 10 mg Oral active 10 mg, Oral, Daily, First dose on Em 04/11/20 at 0900 [facility] Medication administered onsite Lisinopril 5 MG Oral Tablet lisinopril (PRINIVIL,ZESTR IL) tablet 5 mg lisinopril (PRINIVIL,ZESTRIL) tablet 5 mg 04/11/2020 09:00:00 AM EST 5 mg O ral active 5 mg, Oral, Daily, First dose on Em 04/11/20 at 0900 [facility] Medication administered onsite pantoprazole 40 MG Delayed Release Oral Tablet pantoprazole (PROTONIX) EC tablet 40 mg pantoprazole (PROTONIX) EC tablet 40 mg 04/11/2020 09:00:[address] 40 mg Oral active Gastroesophageal Reflux Diseas e 40 mg, Oral, Daily, Indications: Gastroesophageal Reflux Disease, First dose on Em 04/11/20 at 0900 [facility] Gastroesophageal Reflux Disease Medication administered onsite Metoclopramide 10 MG Oral Tablet metoclopramide (MELVA N) tablet 10 mg metoclopramide (REGLAN) tablet 10 mg 04/11/2020 09:00:00 AM EST 10 mg Oral active 10 mg, Oral, 2 times daily, First dose on Em 04/11/20 at 0900 [facility] Medication administered onsite Aspirin 325 MG Oral Tablet aspirin tablet 325 mg aspirin tab let 325 mg 04/11/2020 09:00:00 AM EST 325 mg Oral active 325 mg, Oral, Daily, First dose on Em 04/11/20 at 0900 [facility] Medication administered onsite atorvastatin 80 MG Oral Tablet atorvastatin (LIPITOR) tablet 80 mg atorvastatin (LIPITOR) tablet 80 mg 04/11/2020 09:00:00 AM EST 80 mg Oral active 80 mg, Oral, Daily, First dose on Em 04/11/20 at 0900 [facility] Medication administered onsite Insulin Lispro 100 UNT/ML Injectable Justa ution insulin lispro (HumaLOG) injection 3-40 Units insulin lispro (HumaLOG) injection 3-40 Units 04/11/20 08:00:00 AM EST Subcutaneous aborted 3-4 0 Units, Subcutaneous, MEALSS, First dose on Em 04/11/20 at 0800
20 units Nutritional and Correction Insulin Scale Blood Glucose (mg/dl) <70 start hypoglycemia protocol Glucose &nbsp ; Eats >=50% Eats <50% Eats Nothing (mg/dl) of meal of meal or NPO &a mp;nbsp;70-120 13 units 7 units 0 units 121-170 &nbsp ; 20 units 10 units 0 units 171- 220 23 units&am p;nbsp; 13 units 3 units&nbs p; 221-270 27 units 17 units 7 units 271-320 &am p;nbsp; 30 units 20 units 10 units 321- 370 33 units 23 units 13 units 371-420 &am p;nbsp; 37 units 27 units 17 units >420 call MD 40 units 30 units 20 units Test glucose within 30 minutes of insulin administration. Administer insulin wi thin 15 minutes (before or after) of the patient starting to eat. For patients that are NPO, use the NPO (correction) scale to cover POC glucose at 08:00, 12:00, 17:00.
[facility] Medication administered onsite Pentoxifylline 400 MG Extended Release O ral Tablet pentoxifylline (TRENTal) CR tablet 400 mg pentoxifylline (TRENTal) CR tablet 400 mg 04/11/2020 0 8:00:00 AM EST 400 mg Oral active 400 mg, Oral, 3 times daily with meals, First dose on Em 04/11/20 at 0800 [facility] Medication administered onsite ferrous sulfate 325 MG Oral Tablet ferrous sulfate tab let 325 mg ferrous sulfate tablet 325 mg 04/11/2020 07:00:00 AM EST 325 mg Oral act guevara 325 mg, Oral, Daily with breakfast, First dose on Em 04/11/20 at 0700 [facility] Medication administered onsite sodium chloride 0.9% (NS) infusion [id number] 04/11/2020 06:00:00 A M EST Intravenous aborted at 125 mL/hr, Intravenous, Continuous, Starting Em 04/11/20 at 0600 [facility] Medication administered onsite heparin (porcine) injection 5,000 Units [id number] 04/11/20 06:00:00 AM EST 5000 U Subcutaneous active 5,000 Units , Subcutaneous, Every 8 hours (scheduled), First dose on Em 04/11/20 at 0600
If platelet count is less than 100,000 or hematocrit is less than 30, or if there is a 5 point decrease in hematocrit, do not give the dose and call physician/designee.
[facility] Medication administered onsite menthol (HALLS) lozenge 1 lozenge 04/11/2020 05:17:[address] 1 {lozenge} Buccal active 1 lozenge, [place], As needed, sore throat, Starting Em 04/11/20 at 0517 [facility] Medication administered onsite vancomycin in 500mL (VANCOCIN) IV 2,000 mg [id number] 04/11/2020 02:00:00 AM EST 2000 mg Intravenous completed 2, 000 mg, Intravenous, Administer over 120 Minutes, Once, Em 04/11/20 at 0200, For 1 dose [facility] Medication administered onsite fluconazole (DIFLUCAN) IVPB 400 mg [id number] 04/11/2020 02:00:00 AM EST 400 mg Intravenous completed Skin and Soft Tissue Infecti on 400 mg, Intravenous, Administer over 120 Minutes, Once, Em 04/11/20 at 0200, For 1 dose
For administration and preparation considerations, refer to Hazardous Drugs in the Workplace Policy on Intranet.
[facility] Skin and Soft Tissue Infection Medication administered onsite piperacillin-tazobactam (ZOSYN) 3.375 g in sodium chloride (NS) 0.9 % 100 mL IV pigtail 04/11/2020 01:00:00 AM EST 3.375 g Intravenous aborted Skin and Soft Tissue Infection 3.375 g, Intravenous, Admini ster over 30 Minutes, Every 6 hours (relative), First dose on Em 04/11/20 at 0100 [facility] Skin and Soft Tissue Infection Medication administered onsite dextrose 5 % and sodium chloride 0.45 % infusion [id number] 0 04/11/2020 01:00:00 AM EST Intravenous aborted at 125 mL/hr, Intravenous, Continuous, Starting Em 04/11/20 at 0100 [facility] Medication administered onsite pregabalin (LYRICA) capsule 200 mg 04/11/2020 01:00:00 AM EST 200 mg Oral active 200 mg, Oral, 2 times daily, First dose on Em 04/11/20 at 0100, For 7 days [facility] Medication administered onsite normal saline flush 0.9 % injection 3 mL [id number] 04/11/2020 01:00:00 AM EST 3 mL Intravenous active 3 mL , Intravenous, Every 8 hours (scheduled), First dose on Em 04/11/20 at 0100
flush per protocol, D/C Main IV fluid if appropriate
[facility] Medication administered onsite Docusate Sodium 50 MG / sennosides, RESIDENTIAL 8.6 MG Oral Tablet senna-docusate (PERICOLACE) 8.6-50 MG 2 tablet senna-docusate (PERICOLACE) 8.6-50 MG 2 tablet 04/11/2020 01:00:00 AM EST 2 {tbl} Oral active 2 tablet, Oral, Nightly, First dose on Em 04/11/20 at 0100
hold for loose stools
[facility] Medication administered onsite Acetaminophen 325 MG / Oxycodone Hydroch loride 5 MG Oral Tablet oxyCODONE- acetaminophen (PERCOCET) 5-325 MG 2 tablet oxyCODONE-acetaminophen (PERCOCET) 5- 325 MG 2 tablet 04/11/2020 12:06:40 AM EST 2 {tbl} Oral a ctive 2 tablet, Oral, Every 4 hours PRN, severe pain (7-10), Starting Em 04/11/20 at 0006, For 7 days [facility] Medication administered onsite Acetaminophen 325 MG / Oxycodone Hydroch loride 5 MG Oral Tablet oxyCODONE- acetaminophen (PERCOCET) 5-325 MG 1 tablet oxyCODONE-acetaminophen (PERCOCET) 5- 325 MG 1 tablet 04/11/2020 12:06:25 AM EST 1 {tbl} Oral a ctive 1 tablet, Oral, Every 4 hours PRN, moderate pain (4-6), Starting Em 04/11/20 at 0006, For 7 days [facility] Medication administered onsite Docusate Sodium 100 MG Oral Capsule docusate sodium (C OLACE) capsule 200 mg docusate sodium (COLACE) capsule 200 mg 04/11/2020 12:02:05 AM EST 200 mg Oral active 200 mg, Oral, 2 times daily PRN, constipation, Starting Wed04/11/20 at 0002
hold for loose stools
[facility] Medication administered onsite Cyclobenzaprine hydrochloride 10 MG Oral Tablet cyclobenzaprine (FLEXERIL) tablet 5 mg cyclobenzaprine (FLEXERIL) tablet 5 mg 04/11/2020 12:02:04 AM ES T 5 mg Oral active 5 mg, Oral , 2 times daily PRN, muscle spasms, Starting Em 04/11/20 at 0002 [facility] Medication administered onsite Magnesium Hydroxide 80 MG/ML Oral Suspen roxanne magnesium hydroxide (MILK OF MAGNESIA) 400 MG/5ML suspension 30 mL magnesium hydroxide (MILK OF MAGNESIA) 4 00 MG/5ML suspension 30 mL 04/11/2020 12:00:00 AM EST 30 mL Oral active 30 mL, Oral, Daily PRN, constipation, Starting Wed04/11/20 at 0000
If senna- docusate is not effective
[facility] Medication administered onsite Albuterol 0.83 MG/ML Inhalant Solution a lbuterol (PROVENTIL) nebulizer solution 2.5 mg albuterol (PROVENTIL) nebulizer solution 2.5 mg 2019 11:58:29 PM EST 2.5 mg active 2.5 mg, Nebulization, RT 4 times daily as needed, wheezing, shortness of breath, Starting Wed04/10/20 at 2358 [facility] Medication administered onsite Acetaminophen 325 MG Oral Tablet acetaminophen (TYLENO L) 325 MG tablet 650 mg acetaminophen (TYLENOL) 325 MG tablet 650 mg 04/10/2020 11:50:38 PM EST 650 mg Oral active 650 mg, Or al, Every 4 hours PRN, mild pain (1-3), headaches, Starting Wed04/10/20 at 2350
"Maximum dose of acetaminophen is 4,000 mg from all sources in 24 hours."
[facility] Medication administered onsite Bisacodyl 10 MG Rectal Suppository bisacodyl (DULCOLAX ) suppository 10 mg bisacodyl (DULCOLAX) suppository 10 mg 04/10/2020 11:50:31 PM EST 10 mg Rectal active 10 mg, Rectal, Daily PRN, constipation, Starting Wed04/10/20 at 2350
Hold for BM. If senna-docusate and milk of magnesia are not effective
[facility] Medication administered onsite Mineral Oil 1000 MG/ML Enema mineral oil enema 1 enema mineral oil enema 1 enema 04/10/2020 11:50:31 PM EST 1 {enema} Rectal active 1 enema, Rectal, Daily PRN, constipation, unrelieved by MOM/bisacodyl/senna-docusate, Starting Wed04/10/20 at 2350
hold for loose stools
[facility] Medication administered onsite ondansetron (ZOFRAN) injection 4 mg [id number] 04/10/2020 11:50:2 7 PM EST 4 mg Intravenous active 4 mg, In travenous, Every 4 hours PRN, nausea, vomiting, Starting Wed04/10/20 at 2350 [facility] Medication administered onsite 2 ML Metoclopramide 5 MG/ML Prefilled Sy ringe metoclopramide (REGLAN) injection 10 mg metoclopramide (REGLAN) injection 10 mg 04/10/2020 11:50:[address] 10 mg Intravenous active 10 mg, I ntravenous, Every 6 hours PRN, for Nausea/Vomiting not relieved by zofran, Starting Wed04/10/20 at 2350 [facility] Medication administered onsite pantoprazole 40 MG Delayed Release Oral Tablet [Protonix] Pr otonix 04/10/2020 12:00:00 AM EST ORAL active [facility] ([facility]) 5-325 mg 04/10/2020 12:00:00 AM EST tablet 30 TAKE ONE TABLET BY MOUTH EVERY 4 HOURS NEEDED FOR PAIN MAXIMUM DAILY DOSE = SIX TABLETS TAKE ONE TABLET BY MOUTH EVERY 4 HOURS NEEDED FOR PAIN MAXIMUM DAILY DOSE = SIX TABLETS SOLD: 04/10/2020 [facility] pantoprazole 40 MG Delayed Release Oral Tablet PANTOPRAZOLE SODIUM 04/10/2020 12:00:00 AM EST tablet,delayed release (DR/EC) 30 T FITO ONE TABLET BY MOUTH EVERY DAY TAKE ONE TABLET BY MOUTH EVERY DAY SOLD: 04/14/2020 [facility] 5-325 mg 04/04/2020 12:00:00 AM EST tablet 14 TAKE ONE TABLET BY MOUTH EVERY 12 HOURS NEEDED FOR PAIN MAXIMUM DAILY DOSE = 2 TAKE ONE TABLET BY MOUTH EVERY 12 HOURS NEEDED FOR PAIN MAXIMUM DAILY DOSE = 2 SOLD: 04/04/2020 [facility] Escitalopram Oxalate 20 MG Escitalopram Oxalate 04/03/2020 12:00:00 A M EST completed [facility] ( [facility]) 4.5 mg/0.5 mL 04/02/2020 12:00:00 AM EST pen injector 6 INJECT 1 SUBCUTANEOUSLY ONCE A WEEK INJECT 1 SUBCUTANEOUSLY ONCE A WEEK SOLD: 04/10/2020 [facility] TRULICITY 4.5 MG/0.5ML SOPN [id number] 04/02/2020 12:00:00 AM EST aborted INJECT [address] ONCE A [facility] 4.5 mg/0.5 mL 04/02/2020 12:00:00 AM EST pen injector 2 INJECT 1 SUBCUTANEOUSLY ONCE A WEEK INJECT 1 SUBCUTANEOUSLY ONCE A WEEK SOLD: 07/07/2020 [facility] 75 mg 04/02/2020 12:00:00 AM EST tablet 30 TAKE ONE TABLET BY MOUTH EVERY DAY TAKE ONE TABLET BY MOUTH EVERY DAY SOLD: 04/10/2020 [facility] 75 mg 04/02/2020 12:00:00 AM EST tablet 30 TAKE ONE TABLET BY MOUTH EVERY DAY TAKE ONE TABLET BY MOUTH EVERY DAY SOLD: 05/09/2020 [facility] 75 mg 04/02/2020 12:00:00 AM EST tablet 30 TAKE ONE TABLET BY MOUTH EVERY DAY TAKE ONE TABLET BY MOUTH EVERY DAY SOLD: 05/23/2020 [facility] Nystatin 100 UNT/MG Topical Powder 100,000 unit/gram NYSTATI N 04/01/2020 12:00:00 AM EST powder 15 APPLY TO AFFECTE D AREA(S) UNDER ABDOMINAL FOLD TWO TIMES A DAY NEEDED FOR RASH APPLY TO AFFECTED AREA(S) UNDER ABDOMINA L FOLD TWO TIMES A DAY NEEDED FOR RASH SOLD: 01/12/2021 [facility] 200 mg 04/01/2020 12:00:00 AM EST tablet 7 TAKE ONE TABLET BY MOUTH EVERY DAY TAKE ONE TABLET BY MOUTH EVERY DAY SOLD: 04/01/2020 [facility] Nystatin 100 UNT/MG Topical Powder 100,000 unit/gram NYSTATI N 04/01/2020 12:00:00 AM EST powder 15 APPLY TO AFFECTE D AREA(S) UNDER ABDOMINAL FOLD TWO TIMES A DAY NEEDED FOR RASH APPLY TO AFFECTED AREA(S) UNDER ABDOMINA L FOLD TWO TIMES A DAY NEEDED FOR RASH SOLD: 12/09/2020 [facility] Escitalopram 20 MG Oral Tablet ESCITALOPRAM OXALATE 04/01/2020 1 2:00:00 AM EST tablet 90 TAKE ONE TABLET BY MOUTH EVERY D AY TAKE ONE TABLET BY MOUTH EVERY DAY SOLD: 04/01/2020 [facility] Fluconazole 200 MG Fluconazole 04/01/2020 12:00:00 AM EST completed [facility] ([facility]) Escitalopram 20 MG Oral Tablet escitalopram (LEXAPRO) 20 MG tablet escitalopram (LEXAPRO) 20 MG tablet 04/01/2020 12:00:00 AM EST 20 mg Oral active Take 20 mg by mouth daily [facility] Escitalopram 20 MG Oral Tablet ESCITALOPRAM OXALATE 04/01/2020 1 2:00:00 AM EST tablet 30 TAKE ONE TABLET BY MOUTH EVERY D AY TAKE ONE TABLET BY MOUTH EVERY DAY SOLD: 07/15/2020 [facility] Escitalopram 20 MG Oral Tablet ESCITALOPRAM OXALATE 04/01/2020 1 2:00:00 AM EST tablet 25 TAKE ONE TABLET BY MOUTH EVERY D AY TAKE ONE TABLET BY MOUTH EVERY DAY SOLD: 08/11/2020 [facility] Escitalopram 20 MG Oral Tablet ESCITALOPRAM OXALATE 04/01/2020 1 2:00:00 AM EST tablet 30 TAKE ONE TABLET BY MOUTH EVERY D AY TAKE ONE TABLET BY MOUTH EVERY DAY SOLD: 06/17/2020 [facility] Nystatin 100 UNT/MG Topical Powder 100,000 unit/gram NYSTATI N 04/01/2020 12:00:00 AM EST powder 15 APPLY TO AFFECTE D AREA(S) UNDER ABDOMINAL FOLD TWO TIMES A DAY NEEDED FOR RASH APPLY TO AFFECTED AREA(S) UNDER ABDOMINA L FOLD TWO TIMES A DAY NEEDED FOR RASH SOLD: 04/01/2020 [facility] Nystatin 100 UNT/MG Topical Powder 100,000 unit/gram NYSTATI N 04/01/2020 12:00:00 AM EST powder 15 APPLY TO AFFECTE D AREA(S) UNDER ABDOMINAL FOLD TWO TIMES A DAY NEEDED FOR RASH APPLY TO AFFECTED AREA(S) UNDER ABDOMINA L FOLD TWO TIMES A DAY NEEDED FOR RASH SOLD: 07/23/2020 [facility] Nystatin 100 UNT/MG Topical Powder 100,000 unit/gram NYSTATI N 04/01/2020 12:00:00 AM EST powder 15 APPLY TO AFFECTE D AREA(S) UNDER ABDOMINAL FOLD TWO TIMES A DAY NEEDED FOR RASH APPLY TO AFFECTED AREA(S) UNDER ABDOMINA L FOLD TWO TIMES A DAY NEEDED FOR RASH SOLD: 09/06/2020 [facility] Nystatin 100 UNT/MG Topical Powder 100,000 unit/gram NYSTATI N 04/01/2020 12:00:00 AM EST powder 15 APPLY TO AFFECTE D AREA(S) UNDER ABDOMINAL FOLD TWO TIMES A DAY NEEDED FOR RASH APPLY TO AFFECTED AREA(S) UNDER ABDOMINA L FOLD TWO TIMES A DAY NEEDED FOR RASH SOLD: 06/27/2020 [facility] Nystatin 100 UNT/MG Topical Powder 100,000 unit/gram NYSTATI N 04/01/2020 12:00:00 AM EST powder 15 APPLY TO AFFECTE D AREA(S) UNDER ABDOMINAL FOLD TWO TIMES A DAY NEEDED FOR RASH APPLY TO AFFECTED AREA(S) UNDER ABDOMINA L FOLD TWO TIMES A DAY NEEDED FOR RASH SOLD: 04/29/2020 [facility] 5-325 mg 03/28/2020 12:00:00 AM [...] tablet 03/28/2020 12:00:00 AM EST abort ed [facility] 60 mg 03/25/2020 12:00:00 AM EST capsule,delayed release (DR/EC) 60 TAKE ONE CAPSULE BY MOUTH TWICE A DAY TAKE ONE CAPSULE BY MOUTH TWICE A DAY SOLD: 03/25/2020 [facility] 60 mg 03/25/2020 12:00:00 AM EST capsule,delayed release (DR/EC) 60 TAKE ONE CAPSULE BY MOUTH TWICE A DAY TAKE ONE CAPSULE BY MOUTH TWICE A DAY SOLD: 04/21/2020 [facility] Acetaminophen 325 MG / Oxycodone Hydrochloride 5 MG Or al Tablet Oxycodone-Acetaminophen 03/21/2020 12:00:00 AM EST ORAL completed [facility] ([facility]) 325 mg (65 mg iron) 03/21/2020 12:00:00 AM EST tablet 30 TAKE ONE TABLET BY MOUTH EVERY DAY ON AN EMPTY STOMACH WITH VITAMIN CAPSULE TAKE ONE TABLET BY MOUTH EVERY DAY ON AN EMPTY STOMACH WITH VITAMIN CAPSULE SOLD: 07/11/2020 [facility] 325 mg (65 mg iron) 03/21/2020 12:00:00 AM EST tablet 30 TAKE ONE TABLET BY MOUTH EVERY DAY ON AN EMPTY STOMACH WITH VITAMIN CAPSULE TAKE ONE TABLET BY MOUTH EVERY DAY ON AN EMPTY STOMACH WITH VITAMIN CAPSULE SOLD: 08/08/2020 [facility] 5-325 mg 03/21/2020 12:00:00 AM EST tablet 30 TAKE ONE TABLET BY MOUTH EVERY 4 HOURS NEEDED FOR PAIN MAXIMUM DAILY DOSE = 6 TABLETS TAKE ONE TABLET BY MOUTH EVERY 4 HOURS NEEDED FOR PAIN MAXIMUM DAILY DOSE = 6 TABLETS SOLD: 03/21/2020 [facility] 325 mg (65 mg iron) [...] WITH VITAMIN CAPSULE SOLD: 03/21/2020 [facility] Acetaminophen 325 MG / Oxycodone Hydroch loride 5 MG Oral Tablet oxyCODONE- acetaminophen (PERCOCET) 5-325 MG per tablet oxyCODONE-acetaminophen (PERCOCET) 5-325 MG per tablet 03/21/2020 12:00:00 AM EST aborted TAKE ONE TABLET BY MOUTH EVERY 4 HOURS NEEDED FOR PAIN MAXIMUM DAILY DOSE 6 TABLETS [facility] 325 mg (65 mg iron) 03/21/2020 12:00:00 AM EST tablet 30 TAKE ONE TABLET BY MOUTH EVERY DAY ON AN EMPTY STOMACH WITH VITAMIN CAPSULE TAKE ONE TABLET BY MOUTH EVERY DAY ON AN EMPTY STOMACH WITH VITAMIN CAPSULE SOLD: 05/16/2020 [facility] 325 mg (65 mg iron) 03/21/2020 12:00:00 AM EST tablet 30 TAKE ONE TABLET BY MOUTH EVERY DAY ON AN EMPTY STOMACH WITH VITAMIN CAPSULE TAKE ONE TABLET BY MOUTH EVERY DAY ON AN EMPTY STOMACH WITH VITAMIN CAPSULE SOLD: 06/13/2020 [facility] 5-325 mg 03/20/2020 12:00:00 AM EST tablet 14 TAKE ONE TABLET BY MOUTH EVERY 12 HOURS NEEDED FOR PAIN MAXIMUM DAILY DOSE = 2 TAKE ONE TABLET BY MOUTH EVERY 12 HOURS NEEDED FOR PAIN MAXIMUM DAILY DOSE = 2 SOLD: 03/20/2020 [facility] 200 unit/mL (3 mL) 03/20/2020 [...] TIMES A DAY SOLD: 03/20/2020 [facility] 5 mg 03/16/2020 12:00:00 AM EST tablet 90 TAKE ONE TABLET BY MOUTH EVERY DAY TAKE ONE TABLET BY MOUTH EVERY DAY SOLD: 03/17/2020 [facility] 5 mg 03/16/2020 12:00:00 AM EST tablet 30 TAKE ONE TABLET BY MOUTH EVERY DAY TAKE ONE TABLET BY MOUTH EVERY DAY SOLD: 06/13/2020 [facility] 5 mg 03/16/2020 12:00:00 AM EST tablet 30 TAKE ONE TABLET BY MOUTH EVERY DAY TAKE ONE TABLET BY MOUTH EVERY DAY SOLD: 08/08/2020 [facility] 5 mg 03/16/2020 12:00:00 AM EST tablet 30 TAKE ONE TABLET BY MOUTH EVERY DAY TAKE ONE TABLET BY MOUTH EVERY DAY SOLD: 07/11/2020 [facility] 325 mg 03/15/2020 12:00:00 AM EST tablet 30 TAKE ONE TABLET BY MOUTH EVERY DAY TAKE ONE TABLET BY MOUTH EVERY DAY SOLD: 03/15/2020 [facility] 325 mg 03/15/2020 12:00:00 AM EST tablet 30 TAKE ONE TABLET BY MOUTH EVERY DAY TAKE ONE TABLET BY MOUTH EVERY DAY SOLD: 04/14/2020 [facility] Aspirin 325 MG Oral Tablet ASPIRIN ADULT 325 MG tablet ASPIRIN ADULT 325 MG tablet 03/15/2020 12:00:00 AM EST 325 mg Oral aborted Take 325 mg by mouth daily [facility] 5-325 mg 03/11/2020 12:00:00 AM EST tablet [...] 8 TABLETS SOLD: 03/06/2020 [facility] tramadol hydrochloride 50 MG Oral Tablet Tramadol HCL 03/05/2020 12:00:00 AM EST active [facility] ([facility] 50 mg 03/05/2020 12:00:00 AM EST tablet 28 TAKE ONE TABLET BY MOUTH EVERY 12 HOURS NEEDED FOR PAIN MAXIMUM DAILY DOSE = 2 TABLETS TAKE ONE TABLET BY MOUTH EVERY 12 HOURS NEEDED FOR PAIN MAXIMUM DAILY DOSE = 2 TABLETS SOLD: 03/05/2020 [facility] Bactrim DS 800-160 MG Bactrim DS 03/02/2020 12:00:00 AM EST completed [facility] ([facility]) Sulfamethoxazole 800 MG / Trimethoprim 160 MG [...] MOUTH EVERY DAY SOLD: 03/27/2020 [facility] 10 mg 02/28/2020 12:00:00 AM EST tablet 30 TAKE ONE TABLET BY MOUTH EVERY DAY TAKE ONE TABLET BY MOUTH EVERY DAY SOLD: 05/20/2020 [facility] 10 mg 02/28/2020 12:00:00 AM EST tablet 30 TAKE ONE TABLET BY MOUTH EVERY DAY TAKE ONE TABLET BY MOUTH EVERY DAY SOLD: 06/17/2020 [facility] 10 mg 02/28/2020 12:00:00 AM EST tablet 30 TAKE ONE TABLET BY MOUTH EVERY DAY TAKE ONE TABLET BY MOUTH EVERY DAY SOLD: 04/21/2020 [facility] 10 mg 02/28/2020 12:00:00 AM EST tablet 30 TAKE ONE TABLET BY MOUTH EVERY DAY TAKE ONE TABLET BY MOUTH EVERY DAY SOLD: 02/28/2020 [facility] 400 mg 02/28/2020 12:00:00 AM EST tablet extended release 90 TAKE ONE TABLET BY MOUTH THREE TIMES A DAY TAKE ONE TABLET BY MOUTH THREE TIMES A DAY SOLD: 03/27/2020 [facility] Pregabalin 200 MG Pregabalin 02/28/2020 12:00:00 AM EST completed [facility] ([facility] ) 400 mg 02/28/2020 12:00:00 AM EST tablet extended release 90 TAKE ONE TABLET BY MOUTH THREE TIMES A DAY TAKE ONE TABLET BY MOUTH THREE TIMES A DAY SOLD: 02/28/2020 [facility] 10 mg 02/28/2020 12:00:00 AM EST tablet 30 TAKE ONE TABLET BY MOUTH EVERY DAY TAKE ONE TABLET BY MOUTH EVERY DAY SOLD: 07/15/2020 [facility] 5-325 mg 02/28/2020 12:00:00 AM EST tablet 40 TAKE ONE TO TWO TABLETS BY MOUTH EVERY 4 HOURS NEEDED FOR PAIN MAXIMUM DAILY DOSE = EIGHT TABLETS TAKE ONE TO TWO TABLETS BY MOUTH EVERY 4 HOURS NEEDED FOR PAIN MAXIMUM DAILY DOSE = EIGHT TABLETS SOLD: 02/28/2020 [facility] 200 mg 02/27/2020 12:00:00 AM EST capsule 180 TAKE ONE CAPSULE BY MOUTH TWICE A DAY MAXIMUM DAILY DOSE = 2 CAPSULES TAKE ONE CAPSULE BY MOUTH TWICE A DAY MAXIMUM DAILY DOSE = 2 CAPSULES SOLD: 02/27/2020 [facility] pregabalin 200 MG Oral Capsule pregabalin (LYRICA) 200 MG capsule pregabalin (LYRICA) 200 MG capsule 02/27/2020 12:00:00 AM EST 200 mg Oral aborted Take 200 mg by mouth 2 (two) times a day [facility] Atorvastatin Calcium 80 MG Atorvastatin Calcium 02/23/2020 12:00:00 A M EST completed [facility] ( [facility]) MetroNIDAZOLE 250 MG MetroNIDAZOLE 02/23/2020 12:00:00 AM EST 2.0 {tablet} completed [facility] ([facility]) Ciprofloxacin HCl 250 MG Ciprofloxacin HCl 02/23/2020 12:00:[address] 3.0 {tablet} completed [facility] ([facility]) Benadryl Allergy 25 MG Benadryl Allergy 02/23/2020 12:00:00 AM EST completed [facility] ([facility]) Acetaminophen 8 Hour 650 MG Acetaminophen 8 Hour 02/23/2020 12:00:00 AM EST completed [facility] ( [facility]) 5-325 mg 02/22/2020 12:00:00 AM EST tablet 14 TAKE ONE TABLET BY MOUTH EVERY 12 HOURS NEEDED FOR PAIN MAXIMUM DAILY DOSE = TWO TABLETS TAKE ONE TABLET BY MOUTH EVERY 12 HOURS NEEDED FOR PAIN MAXIMUM DAILY DOSE = TWO TABLETS SOLD: 02/23/2020 [facility] 250 mg 02/21/2020 12:00:00 AM EST tablet 84 TAKE TWO TABLETS BY MOUTH THREE TIMES A DAY FOR 14 DAYS TAKE TWO TABLETS BY MOUTH THREE TIMES A DAY FOR 14 DAY S SOLD: 02/21/2020 [facility] 150 mg 02/21/2020 12:00:00 AM EST capsule 60 TAKE ONE CAPSULE BY MOUTH TWICE A DAY MAXIMUM DAILY DOSE = 2 TAKE ONE CAPSULE BY MOUTH TWICE A DAY MA OMARM DAILY DOSE = 2 SOLD: 02/22/2020 [facility] 250 mg 02/21/2020 12:00:00 AM EST tablet 28 TAKE ONE TABLET BY MOUTH TWICE A DAY FOR 14 DAYS TAKE ONE TABLET BY MOUTH TWICE A DAY FOR 14 DAYS SOLD: 02/21/2020 [facility] Ciprofloxacin 250 MG Oral Tablet ciprofloxacin (CIPRO) 250 MG tablet ciprofloxacin (CIPRO) 250 MG tablet 02/20/2020 12:00:00 AM EST 250 mg Oral active Take 1 tablet (2 50 mg total) by mouth 2 (two) times a day for 14 days [facility] Metronidazole 250 MG Oral Tablet metroNIDAZOLE (FLAGYL ) 250 MG tablet metroNIDAZOLE (FLAGYL) 250 MG tablet 02/20/2020 12:00:00 AM EST 500 m g Oral active Take 2 tablets ( 500 mg total) by mouth 3 (three) times a day for 14 days [facility] Insulin Lispro 100 UNT/ML Injectable Justa ution insulin lispro (HumaLOG) injection 3-40 Units insulin lispro (HumaLOG) injection 3-40 Units 02/19/20 05:00:00 PM EST Subcutaneous active 3-4 0 Units, Subcutaneous, MEALSS, First dose on Wed02/19/20 at 1700
20 units Nutritional and Correction Insulin Scale Blood Glucose (mg/dl) <70 start hypoglycemia protocol Glucose &nbsp ; Eats >=50% Eats <50% Eats Nothing (mg/dl) of meal of meal or NPO &a mp;nbsp;70-120 13 units 7 units 0 units 121-170 &nbsp ; 20 units 10 units 0 units 171- 220 23 units&am p;nbsp; 13 units 3 units&nbs p; 221-270 27 units 17 units 7 units 271-320 &am p;nbsp; 30 units 20 units 10 units 321- 370 33 units 23 units 13 units 371-420 &am p;nbsp; 37 units 27 units 17 units >420 call MD 40 units 30 units 20 units Test glucose within 30 minutes of insulin administration. Administer insulin wi thin 15 minutes (before or after) of the patient starting to eat. For patients that are NPO, use the NPO (correction) scale to cover POC glucose at 08:00, 12:00, 17:00.
[facility] Medication administered onsite Acetaminophen 325 MG / Oxycodone Hydroch loride 5 MG Oral Tablet oxyCODONE- acetaminophen (PERCOCET) 5-325 MG 1 tablet oxyCODONE-acetaminophen (PERCOCET) 5- 325 MG 1 tablet 02/19/2020 04:00:00 PM EST 1 {tbl} Oral c ompleted 1 tablet, Oral, Once, Wed02/19/20 at 1600, For 1 dose [facility] Medication administered onsite Insulin Glargine 100 UNT/ML Injectable S olution [Lantus] insulin glargine (LANTUS) injection 30 Units insulin glargine (LANTUS) injection 30 Units 02/19/2020 01:00:00 PM EST 30 U Subcutaneous active 30 Units, Subcutaneous, 2 Times Daily (Lantus), First dose on Wed02/19/20 at 1300
Basal Insulin (Lantus) Adjustments based on AM Blood Glucose Blood Glucose&nbs p; Adjustment Less than 70 mg/dl Nursing to initiate hypoglycemia protocol 70 to 100 mg/dl &nb sp; Pharmacy to decrease total daily dose by 20% 101 to 200 mg/dl &nb sp; No Change
[facility] Medication administered onsite meropenem (MERREM) 2 [...] phone call been made for approval? No [facility] Skin and Soft Tissue Infection Medication administered onsite Insulin Lispro 100 UNT/ML Injectable Justa ution insulin lispro (HumaLOG) injection 1-4 Units insulin lispro (HumaLOG) injection 1-4 Units 0 08:00:00 AM EST Subcutaneous aborted 1-4 Units, Subcutaneous, MEALSS, First dose on Wed02/19/20 at 0800
2 units Nutritional and Correction Insulin Scale Blood Glucose (mg/dl) <70 start hypoglycemia protocol Glucose &nbsp ; Eats >=50% Eats <50%& amp;nbsp; Eats Nothing (mg/dl) of meal of meal or NPO &am p;nbsp;70- 120 1 units 1 units 0 units 121-170 & amp;nbsp; 2 units 1 units 0 units 171-220 & nbsp; 2 units 1 units 0 units 221-270 &n bsp; 3 units 2 units 1 units 271- 320 3 units 2 units 1 units 321- 370 3 units 2 units 1 units 371-42 0 4 units 3 units 2 units >420 call MD 4 units 3 units 2 units Test glucose within 30 minutes of insulin administration. Administer insulin within 15 minutes (before or after) of the patient starting to eat. For patients that are NPO, use the NPO (correction) scale to cover POC glucose at 08:00, 12:00, 17:00.
[facility] Medication administered onsite ferrous sulfate 325 MG Oral Tablet ferrous sulfate tab let 325 mg ferrous sulfate tablet 325 mg 02/19/2020 07:00:00 AM EST 325 mg Oral act guevara 325 mg, Oral, Daily with breakfast, First dose on 02/19/20 at 0700 [facility] Medication administered onsite Metoclopramide 10 MG Oral Tablet metoclopramide (MELVA N) tablet 10 mg metoclopramide (REGLAN) tablet 10 mg 02/18/2020 09:00:00 PM EST 10 mg Oral active 10 mg, Oral, 2 times daily, First dose on 02/18/20 at 2100 [facility] Medication administered onsite Clotrimazole 10 MG/ML Topical Cream clot rimazole (LOTRIMIN) 1 % cream 1 application clotrimazole (LOTRIMIN) 1 % cream 1 application 2019 09:00:00 PM EST 1 {application} Topical active 1 application, Topical, 2 times daily, First dose on 02/18/20 at 2100, Until Discontinued [facility] Medication administered onsite heparin (porcine) injection 5,000 Units [id number] 02/18/20 09:00:00 PM EST 5000 U Subcutaneous active 5,000 Units , Subcutaneous, Every 12 hours (scheduled), First dose on 02/18/20 at 2100
If platelet count is less than 100,000 or hematocrit is less than 25, or if there is a 5 point decrease in hematocrit, do not give the dose and call physician/designee.
[facility] Medication administered onsite pregabalin 75 MG Oral Capsule pregabalin (LYRICA) caps ule 150 mg pregabalin (LYRICA) capsule 150 mg 02/18/2020 09:00:00 PM EST 150 mg Oral active 150 mg, Oral, 2 times daily, First dose on 02/18/20 at 2100, For 7 days [facility] Medication administered onsite 60 ACTUAT formoterol fumarate 0.005 MG/A CTUAT / mometasone furoate 0.2 MG/ACTUAT Metered Dose Inhaler mometasone-formoterol (DULERA) 200-5 MCG/ACT inhaler 2 puff mometasone-formoterol (DULERA) 200-5 MCG/ACT inhaler 2 puff 02/18/2020 08:00:00 PM EST 2 {puff} Inhalation active 2 puff, Inhalation, 2 times daily, First dose on 02/18/20 at 2000 [facility] Medication administered onsite meropenem (MERREM) injection 2 g [id number] 02/18/2020 06:00:00 PM EST 2 g Intravenous aborted Complicated Skin & Skin Structure I nfection 2 g, Intravenous, Every 8 hours (relative), Indications: Complicated Skin & Skin Structure Infection, First dose on 02/18/20 at 1800
Reconstitute with 20 ml STERILE WATER for injection. Administer IV push over 5 minutes. Use within 1 hour of reconstitution.
[facility] Complicated Skin & Skin Structure Infect ion Medication administered onsite Lisinopril 5 MG Oral Tablet lisinopril (PRINIVIL,ZESTR IL) tablet 5 mg lisinopril (PRINIVIL,ZESTRIL) tablet 5 mg 02/18/2020 06:00:00 PM EST 5 mg O ral active 5 mg, Oral, Daily, First dose on 02/18/20 at 1800 [facility] Medication administered onsite pantoprazole 40 MG Delayed Release Oral Tablet pantoprazole (PROTONIX) EC tablet 40 mg pantoprazole (PROTONIX) EC tablet 40 mg 02/18/2020 06:00:[address] 40 mg Oral active Gastroesophageal Reflux Diseas e 40 mg, Oral, Daily, Indications: Gastroesophageal Reflux Disease, First dose on 02/18/20 at 1800 [facility] Gastroesophageal Reflux Disease Medication administered onsite Pentoxifylline 400 MG Extended Release O ral Tablet pentoxifylline (TRENTal) CR tablet 400 mg pentoxifylline (TRENTal) CR tablet 400 mg 02/18/2020 0 6:00:00 PM EST 400 mg Oral active 400 mg, Oral, 3 times daily with meals, First dose on 02/18/20 at 1800 [facility] Medication administered onsite POLYETHYLENE GLYCOL 3350 142 MG/ML Oral Solution polyethylene glycol (GLYCOLAX) packet 17 g polyethylene glycol (GLYCOLAX) packet 17 g 02/18/2020 06:00:00 PM EST 17 g Oral active 17 g, Or al, Daily, First dose on 02/18/20 at 1800
hold for loose stools
[facility] Medication administered onsite normal saline flush 0.9 % injection 10 mL [id number] 02/18/2020 06:00:00 PM EST 10 mL Intravenous active 10 m L, Intravenous, Every 8 hours (scheduled), First dose on 02/18/20 at 1800
Flush with 10 mL NS prior and post medication administration. Flush with 10 mL NS prior to blood specimen collection and flush with 20 mL to clear solution/drug post blood specimen collection
[facility] Medication administered onsite atorvastatin 80 MG Oral Tablet atorvastatin (LIPITOR) tablet 80 mg atorvastatin (LIPITOR) tablet 80 mg 02/18/2020 06:00:00 PM EST 80 mg Oral active 80 mg, Oral, Daily, First dose on 02/18/20 at 1800 [facility] Medication administered onsite Bisacodyl 10 MG Rectal Suppository bisacodyl (DULCOLAX ) suppository 10 mg bisacodyl (DULCOLAX) suppository 10 mg 02/18/2020 06:00:00 PM EST 10 mg Rectal active 10 mg, Rectal, Daily, First dose on 02/18/20 at 1800
hold for loose stools
[facility] Medication administered onsite 24 HR Bupropion Hydrochloride 150 MG Ext ended Release Oral Tablet buPROPion (WELLBUTRIN XL) 24 hr tablet 150 mg buPROPion (WELLBUTRIN XL) 24 hr tablet 1 50 mg 02/18/2020 06:00:00 PM EST 150 mg Oral active 150 mg, Oral, Daily, First dose on 02/18/20 at 1800 [facility] Medication administered onsite clopidogrel 75 MG Oral Tablet clopidogrel (PLAVIX) tab let 75 mg clopidogrel (PLAVIX) tablet 75 mg 02/18/2020 06:00:00 PM EST 75 mg Oral active 75 mg, Oral, Daily, First dose on 02/18/20 at 1800 [facility] Medication administered onsite DAILY CHE (THERAGRAN) 1 tablet [id number] 02/18/2020 06:00:00 PM EST 1 {tbl} Oral active 1 tablet, Oral, Daily, First dose on 02/18/20 at 1800 [facility] Medication administered onsite Escitalopram 10 MG Oral Tablet escitalopram (LEXAPRO) tablet 10 mg escitalopram (LEXAPRO) tablet 10 mg 02/18/2020 06:00:00 PM EST 10 mg Oral active 10 mg, Oral, Daily, First dose on 02/18/20 at 1800 [facility] Medication administered onsite Acetaminophen 325 MG / Oxycodone Hydroch loride 5 MG Oral Tablet oxyCODONE- acetaminophen (PERCOCET) 5-325 MG 1 tablet oxyCODONE-acetaminophen (PERCOCET) 5- 325 MG 1 tablet 02/18/2020 05:13:38 PM EST 1 {tbl} Oral a ctive 1 tablet, Oral, Every 4 hours PRN, moderate pain (4-6), Starting 02/18/20 at 1713, For 7 days [facility] Medication administered onsite Docusate Sodium 100 MG Oral Capsule docusate sodium (C OLACE) capsule 200 mg docusate sodium (COLACE) capsule 200 mg 02/18/2020 05:11:55 PM EST 200 mg Oral active 200 mg, Oral, 2 times daily PRN, constipation, Starting 02/18/20 at 1711
hold for loose stools
[facility] Medication administered onsite Cyclobenzaprine hydrochloride 10 MG Oral Tablet cyclobenzaprine (FLEXERIL) tablet 5 mg cyclobenzaprine (FLEXERIL) tablet 5 mg 02/18/2020 05:11:52 PM ES T 5 mg Oral active 5 mg, Oral , 2 times daily PRN, muscle spasms, Starting 02/18/20 at 1711 [facility] Medication administered onsite Albuterol 0.83 MG/ML Inhalant Solution a lbuterol (PROVENTIL) nebulizer solution 2.5 mg albuterol (PROVENTIL) nebulizer solution 2.5 mg 2019 05:11:19 PM EST 2.5 mg active 2.5 mg, Nebulization, RT every 4 hours as needed, wheezing, shortness of breath, Starting 02/18/20 at 1711 [facility] Medication administered onsite 17 gram/dose 02/17/2020 12:00:00 AM EDT powder 238 TAKE 17G MIXED IN FLUID BY MOUTH DAILY TAKE 17G MIXED IN FLUID BY MOUTH DAILY SOLD: 03/25/2020 [facility] DAILY CHE (THERAGRAN) per tablet [id number] 02/17/2020 12:00:00 AM EDT 1 {tbl} Oral aborted Take 1 tablet by mouth d gloria [facility] 17 gram/dose 02/17/2020 12:00:00 AM EDT powder [...] BY MOUTH DAILY SOLD: 03/01/2020 [facility] Lisinopril 5 MG Lisinopril 02/16/2020 01:00:00 AM EDT completed [facility] ([facility]) Ferrous Sulfate Ferrous Sulfate 02/16/2020 01:00:00 AM EDT 0 {mg } completed [facility] ([facility]) Escitalopram Oxalate 10 MG Escitalopram Oxalate 02/16/2020 01:00:00 A M EDT completed [facility] ( [facility]) Cyclobenzaprine Cyclobenzaprine 02/16/2020 01:00:00 AM EDT 0 {mg } completed [facility] ([facility]) Metoclopramide Metoclopramide 02/16/2020 01:00:00 AM EDT 0 {mg} completed [facility] ([facility]) Loratadine 10 MG Loratadine 02/16/2020 01:00:00 AM EDT completed [facility] ([facility] ) Oxycodone & Tylenol Oxycodone & Tylenol 02/16/2020 01:00:00 AM EDT 0 {mg} completed [facility] ([facility]) Bisacodyl Supp. Bisacodyl Supp. 02/16/2020 01:00:00 AM EDT 0 {mg } completed [facility] ([facility]) Multivitamin Multivitamin 02/16/2020 01:00:00 AM EDT 0 {mg} completed [facility] ([facility]) Normal Saline Flush 0.9 % Normal Saline Flush 02/16/2020 01:00:00 AM E DT completed [facility] ([facility]) Pentoxifylline ER 400 MG Pentoxifylline ER 02/16/2020 01:00:00 AM E DT 400.0 {mg} completed [facility] ([facility]) Pregabalin 150 MG Pregabalin 02/16/2020 01:00:00 AM EDT completed [facility] ([facility] ) Steglatro 15 MG Steglatro 02/16/2020 01:00:00 AM EDT completed [facility] ([facility]) Clopidogrel Bisulfate 75 MG Clopidogrel Bisulfate 02/16/2020 01:00: 00 AM EDT completed [facility] ([facility]) Heparin Heparin 02/16/2020 01:00:00 AM EDT 0 {ml} compl eted [facility] ([facility]) Omeprazole 40 MG Omeprazole 02/16/2020 01:00:00 AM EDT completed [facility] ([facility] ) Ondansetron HCl 4 MG Ondansetron HCl 02/16/2020 01:00:00 AM EDT completed [facility] ([facility]) Docusate Sodium Docusate Sodium 02/16/2020 01:00:00 AM EDT 0 {mg } completed [facility] ([facility]) Aspirin Aspirin 02/16/2020 01:00:00 AM EDT 0 {mg} compl eted [facility] ([facility]) BuPROPion HBr ER 522 MG BuPROPion HBr ER 02/16/2020 01:00:00 AM EDT 150.0 {mg} completed [facility] ([facility]) Atorvastatin Calcium 80 MG Atorvastatin Calcium 02/16/2020 01:00:00 A M EDT completed [facility] ( [facility]) Breo Ellipta 100-25 MCG/INH Breo Ellipta 02/16/2020 01:00:00 AM EDT completed [facility] ([facility]) MiraLax 17 GM MiraLax 02/16/2020 01:00:00 AM EDT c ompleted [facility] ([facility]) Nystatin Powder Nystatin Powder 02/16/2020 01:00:00 AM EDT 0 {un it} completed [facility] ([facility]) Albuterol Sulfate HFA 108 (90 Base) MCG/ACT Albuterol Sulfat e HFA 02/16/2020 01:00:00 AM EDT completed [facility] ([facility]) Admelog SoloStar 100 UNIT/ML Admelog SoloStar 02/16/2020 01:00:00 AM E DT completed [facility] ([facility]) Trulicity 0.75 MG/0.5ML Trulicity 02/16/2020 01:00:00 AM EDT 1.5 {mg} completed [facility] ([facility]) Tresiba FlexTouch 100 UNIT/ML Tresiba FlexTouch 02/16/2020 01:00:00 AM EDT 50.0 {Units} completed [facility] ([facility]) Meropenem 1 GM Meropenem 02/16/2020 01:00:00 AM EDT 2.0 {gm} completed [facility] ([facility]) 10 mg 02/16/2020 12:00:00 AM EDT suppository 12 INSERT ONE SUPPOSITORY RECTALLY EVERY DAY INSERT ONE SUPPOSITORY RECTALLY EVERY DAY SOLD: 02/16/2020 [facility] 3 ML heparin sodium, porcine 100 UNT/ML Prefilled Syringe heparin 100 UNIT/ML SOLN heparin 100 UNIT/ML SOLN 02/16/2020 12:00:00 AM EDT aborted Infuse 5 ml After dose and as needed to red lumen if applicable [facility] Chlorhexidine Gluconate (BIOPATCH PROTECTIVE DISK/CHG) (Geovanna buchanan) [facility] [id number] 02/16/2020 12:00:00 AM EDT aborted Apply one patch weekly with dressing change and prn [facility] Sodium Chloride Flush (NORMAL SALINE FLUSH) 0.9 % SOLN injec tion [id number] 02/16/2020 12:00:00 AM EDT aborted Infuse 10 ml before and after dose and prn [facility] meropenem (MERREM) 1 g injection [id number] 02/16/2020 12:00:00 AM E DT aborted Infuse 2gm iv every 8 myranda rs daily until 03/21/20 [facility] 400 mcg 02/16/2020 12:00:00 AM EDT tablet 30 TAKE ONE TABLET BY MOUTH EVERY DAY TAKE ONE TABLET BY MOUTH EVERY DAY SOLD: 03/15/2020 [facility] 400 mcg 02/16/2020 12:00:00 AM EDT tablet 30 TAKE ONE TABLET BY MOUTH EVERY DAY TAKE ONE TABLET BY MOUTH EVERY DAY SOLD: 02/16/2020 [facility] Acetaminophen 325 MG / Oxycodone Hydrochloride 5 MG Or al Tablet Oxycodone-Acetaminophen 02/16/2020 12:00:00 AM EDT ORAL completed [facility] ([facility]) Bisacodyl 10 MG Rectal Suppository Bisacodyl Laxative 02/15 12:00:00 AM EDT active [facility] ([facility] 3 ML heparin sodium, [...] ORAL active [facility] ([facility]) POLYETHYLENE GLYCOL 3350 142 MG/ML Oral Solution polyethylene glycol (GLYCOLAX) 17 g packet polyethylene glycol (GLYCOLAX) 17 g packet 02/16/2020 12:00:00 AM EDT 17 g Oral aborted Take 17 g by russel th daily [facility] Aspirin 325 MG Oral Tablet ASPIRIN ADULT 325 MG tablet ASPIRIN ADULT 325 MG tablet 02/16/2020 12:00:00 AM EDT 325 mg Oral active Take 1 tablet (325 mg total) by mouth once for 1 dose [facility] Bisacodyl 10 MG Rectal Suppository bisacodyl (DULCOLAX ) 10 MG suppository bisacodyl (DULCOLAX) 10 MG suppository 02/16/2020 12:00:00 AM EDT 10 mg Rectal aborted Insert 1 suppository (10 mg total) into the rectum daily [facility] meropenem 2 g in sodium chloride 0.9 % 100 mL IVPB 02/16/2020 12:00:00 AM EDT 2 g Intravenous aborted Osteomyelitis Infuse 2 g into a venous catheter every 8 (eight) hours [facility] Osteomyelitis Acetaminophen 325 MG / Oxycodone Hydroch loride 5 MG Oral Tablet oxyCODONE- acetaminophen (PERCOCET) 5-325 MG per tablet oxyCODONE-acetaminophen (PERCOCET) 5-325 MG per tablet 02/16/2020 12:00:00 AM EDT Oral active Take 1-2 tablets by mouth every 4 (four) hours as needed Max Daily Amount: 8 tablets [facility] 5-325 mg 02/16/2020 12:00:00 AM EDT tablet 30 TAKE ONE TO TWO TABLETS BY MOUTH EVERY 4 HOURS NEEDED MAXIMUM DAILY DOSE = 8 TABLETS TAKE ONE TO TWO TABLETS BY MOUTH EVERY 4 HOURS NEEDED MAXIMUM DAILY DOSE = 8 TABLETS SOLD: 02/16/2020 [facility] Sodium Chloride Flush (NORMAL SALINE FLUSH) 0.9 % SOLN injec tion [id number] 02/16/2020 12:00:00 AM EDT aborted Infuse 10 ml before and after dose and prn [facility] 3 ML heparin sodium, porcine 100 UNT/ML Prefilled Syringe heparin 100 UNIT/ML SOLN heparin 100 UNIT/ML SOLN 02/16/2020 12:00:00 AM EDT active Infuse 5 ml After dose and as needed to red lumen if applicable [facility] Chlorhexidine Gluconate (BIOPATCH PROTECTIVE DISK/CHG) (Geovanna sing) [facility] [id number] 02/16/2020 12:00:00 AM EDT active Apply one patch weekly with dressing change and prn [facility] meropenem (MERREM) 1 g injection [id number] 02/16/2020 12:00:00 AM E DT active Infuse 2gm iv every 8 myranda rs daily until 03/21/20 [facility] 325 mg 02/16/2020 12:00:00 AM EDT tablet,delayed release (DR/EC) 30 TAKE 1 TABLET BY MOUTH ONCE TAKE 1 TABLET BY MOUTH ONCE SOLD: 02/16/2020 [facility] Insulin Glargine 100 UNT/ML Injectable S olution [Lantus] insulin glargine (LANTUS) injection 30 Units insulin glargine (LANTUS) injection 30 Units 02/15/2020 09:00:00 PM EDT 30 U Subcutaneous active 30 Units, Subcutaneous, 2 Times Daily (Lantus), First dose on Em 02/15/20 at 2100
Basal Insulin (Lantus) Adjustments based on AM Blood Glucose Blood Glucose&nbs p; Adjustment Less than 70 mg/dl Nursing to initiate hypoglycemia protocol 70 to 100 mg/dl &nb sp; Pharmacy to decrease total daily dose by 20% 101 to 200 mg/dl &nb sp; No Change
[facility] Medication administered onsite Insulin Lispro 100 UNT/ML Injectable Justa ution insulin lispro (HumaLOG) injection 3-40 Units insulin lispro (HumaLOG) injection 3-40 Units 02/15/20 20 05:00:00 PM EDT Subcutaneous active 3-4 0 Units, Subcutaneous, MEALSS, First dose on Em 02/15/20 at 1700
20 units Nutritional and Correction Insulin Scale Blood Glucose (mg/dl) <70 start hypoglycemia protocol Glucose &nbsp ; Eats >=50% Eats <50% Eats Nothing (mg/dl) of meal of meal or NPO &a mp;nbsp;70-120 13 units 7 units 0 units 121-170 &nbsp ; 20 units 10 units 0 units 171- 220 23 units&am p;nbsp; 13 units 3 units&nbs p; 221-270 27 units 17 units 7 units 271-320 &am p;nbsp; 30 units 20 units 10 units 321- 370 33 units 23 units 13 units 371-420 &am p;nbsp; 37 units 27 units 17 units >420 call MD 40 units 30 units 20 units Test glucose within 30 minutes of insulin administration. Administer insulin wi thin 15 minutes (before or after) of the patient starting to eat. For patients that are NPO, use the NPO (correction) scale to cover POC glucose at 08:00, 12:00, 17:00.
[facility] Medication administered onsite 5-325 mg 02/15/2020 12:00:00 AM EDT tablet 14 TAKE ONE TABLET BY MOUTH EVERY 12 HOURS NEEDED FOR PAIN MAXIMUM DAILY DOSE = 2 TAKE TABLETS TAKE ONE TABLET BY MOUTH EVERY 12 HOURS NEEDED FOR PAIN MAXIMUM DAILY DOSE = 2 TAKE TABLETS SOLD: 02/15/2020 [facility] Insulin Glargine 100 UNT/ML Injectable S olution [Lantus] insulin glargine (LANTUS) injection 26 Units insulin glargine (LANTUS) injection 26 Units 02/14/2020 09:00:00 PM EDT 26 U Subcutaneous aborted 26 Units, Subcutaneous, 2 Times Daily (Lantus), First dose on Wed02/14/20 at 2100
Basal Insulin (Lantus) Adjustments based on AM Blood Glucose Blood Glucose&nbs p; Adjustment Less than 70 mg/dl Nursing to initiate hypoglycemia protocol 70 to 100 mg/dl &nb sp; Pharmacy to decrease total daily dose by 20% 101 to 200 mg/dl &nb sp; No Change
[facility] Medication administered onsite Morphine Sulfate (PF) injection 2 mg 02/13/2020 06:36: 23 PM EDT 2 mg Intravenous active 2 mg, In travenous, Every 2 hour PRN, severe pain (7-10), Starting Wed02/13/20 at 1836, For 4 days [facility] Medication administered onsite meropenem (MERREM) 2 g in sodium chloride (NS) 0.9 % 100 mL IVPB 02/13/2020 02:00:00 PM EDT 2 g Intravenous active Osteomyeliti s 2 g, Intravenous, Every 8 hours (relative), First dose on Wed02/13/20 at 1400
This anti- infective requires approval from infectious disease: Please indicate approving infectious disease physician: Dr. Levine [facility] Osteomyelitis Medication administered onsite Morphine Sulfate (PF) injection 2 mg 02/13/2020 12:00: 00 AM EDT 2 mg Intravenous completed 2 mg, In travenous, Once, Wed02/13/20 at 0000, For 1 dose [facility] Medication administered onsite dextrose 5 % and sodium chloride 0.45 % infusion [id number] 0 02/12/2020 07:00:00 PM EDT Intravenous aborted at 75 mL/hr, Intravenous, Continuous, Starting Wed02/12/20 at 1900
Saline lock with good PO
[facility] Medication administered onsite Morphine Sulfate (PF) injection 2 mg [id number] 02/12/2020 06:31: 18 PM EDT 2 mg Intravenous completed 2 mg, In travenous, Every 2 hour PRN, severe pain (7-10), severe pain if oral ineffective after 1 hour, Starting Wed02/12/20 at 1831, For 1 day [facility] Medication administered onsite fentaNYL Citrate (PF) (SUBLIMAZE) injection 25 mcg [id number] 02/12/2020 05:33:37 PM EDT 25 ug Intravenous aborted 25 mcg, Intravenous, Every 5 min PRN, moderate pain (4 to 6), max 8 doses, Starting Wed02/12/20 at 1733, For 2 hours, PACU (only) [facility] Medication administered onsite Ceftazidime 1000 MG Injection cefTAZidime (FORTAZ) inj ection 2 g cefTAZidime (FORTAZ) injection 2 g 02/12/2020 04:00:00 PM EDT 2 g Intravenous aborted Osteomyelitis 2 g, Intravenous, Every 8 ho urs (relative), First dose on Wed02/12/20 at 1600
Reconstitute with 10 ml STERILE WATER for injection. Administer IV push over 3 minutes. Use within 1 hour of reconstitution
[facility] Osteomyelitis Medication administered onsite dextrose 5 % and sodium chloride 0.45 % infusion [id number] 0 02/12/2020 12:00:00 AM EDT Intravenous aborted at 75 mL/hr, Intravenous, Continuous, Starting Wed02/12/20 at 0000
Switch to NS if BG >300
[facility] Medication administered onsite Insulin Glargine 100 UNT/ML Injectable S olution [Lantus] insulin glargine (LANTUS) injection 24 Units insulin glargine (LANTUS) injection 24 Units 02/11/2020 09:00:00 PM EDT 24 U Subcutaneous aborted 24 Units, Subcutaneous, 2 Times Daily (Lantus), First dose on 02/11/20 at 2100
Basal Insulin (Lantus) Adjustments based on AM Blood Glucose Blood Glucose&nbs p; Adjustment Less than 70 mg/dl Nursing to initiate hypoglycemia protocol 70 to 100 mg/dl &nb sp; Pharmacy to decrease total daily dose by 20% 101 to 200 mg/dl &nb sp; No Change
[facility] Medication administered onsite Insulin Lispro 100 UNT/ML Injectable Justa ution insulin lispro (HumaLOG) injection 3-32 Units insulin lispro (HumaLOG) injection 3-32 Units 02/11/20 12:00:00 PM EDT Subcutaneous aborted 3-3 2 Units, Subcutaneous, MEALSS, First dose on 02/11/20 at 1200
16 units Nutritional and Correction Insulin Scale Blood Glucose (mg/dl) <70 start hypoglycemia protocol Glucose &nbsp ; Eats >=50% Eats <50% Eats Nothing (mg/dl) of meal of meal or NPO &a mp;nbsp;70-120 11 units 5 units 0 units 121-170 &nbsp ; 16 units 8 units 0 units 171-220 &a mp;nbsp;19 units 11 units 3 units 221- 270 21 units 13 units 5 units 271-320 &amp ;nbsp; 24 units 16 units 8 units 321- 370 27 uni ts 19 units 11 units 371- 420 29 units 21 units 13 units >420 call MD 32 units 24 units 16 units Test glucose within 30 minutes of insulin administration. Administer insulin within 15 minutes (before or after) of the patient starting to eat. For patients that are NPO, use the NPO (correction) scale to cover POC glucose at 08:00, 12:00, 17:00.
[facility] Medication administered onsite Insulin Lispro 100 UNT/ML Injectable Justa ution insulin lispro (HumaLOG) injection 2-28 Units insulin lispro (HumaLOG) injection 2-28 Units 02/10/20 20 12:00:00 PM EDT Subcutaneous aborted 2-2 8 Units, Subcutaneous, MEALSS, First dose on 02/10/20 at 1200
14 units Nutritional and Correction Insulin Scale Blood Glucose (mg/dl) <70 start hypoglycemia protocol Glucose &nbsp ; Eats >=50% Eats <50% Eats Nothing (mg/dl) of meal of meal or NPO &a mp;nbsp;70- 120 9 units 5 units 0 units 121-170 14 units 7 units&n bsp; 0 units 171-220 &am p;nbsp; 16 units 9 units 2 units 221- 270 19 units 12 units 5 units 271- 320 21 units 14 units& amp;nbsp; 7 units 321-370 &nbs p; 23 units 16 units 9 units 371- 420 26 units 19 units 12 units >420 call MD 28 units 21 units 14 units &am p;nbsp;Test glucose within 30 minutes of insulin administration. Administer insulin within 15 minutes (before or after) of the patient starting to eat. For patients that are NPO, use the NPO (correction) scale to cover POC glucose at 08:00, 12:00, 17:00.
[facility] Medication administered onsite Docusate Sodium 100 MG Oral Capsule docusate sodium (C OLACE) capsule 100 mg docusate sodium (COLACE) capsule 100 mg 02/09/2020 09:00:00 PM EDT 100 mg Oral active 100 mg, Oral, 2 times daily, First dose on Wed02/09/20 at 2100
hold for loose stools
[facility] Medication administered onsite vancomycin HCl (VANCOCIN) 1,250 mg in dextrose 5 % 250 mL IV PB 02/09/2020 06:00:00 PM EDT 1250 mg Intravenous aborted Sk in and Soft Tissue Infection 1,250 mg, Intravenous, Admin ister over 90 Minutes, Every 12 hours (relative), First dose on Wed02/09/20 at 1800 [facility] Skin and Soft Tissue Infection Medication [...] minutes. Use within 1 hour of reconstitution
[facility] Osteomyelitis Medication administered onsite Metronidazole 5 MG/ML Injectable Solution metroNIDAZOL E (FLAGYL) IVPB 500 mg metroNIDAZOLE (FLAGYL) IVPB 500 mg 02/09/2020 02:00:00 PM EDT 50 0 mg Intravenous aborted Clostridioides Difficile Associated Diarrhea 500 mg, Intravenous, Administer over 60 Minutes, Every 8 hours (relative), First dose on Wed02/09/20 at 1400 [facility] Clostridioides Difficile Associated Diar trae Medication administered onsite POLYETHYLENE GLYCOL 3350 142 MG/ML Oral Solution polyethylene glycol (GLYCOLAX) packet 17 g polyethylene glycol (GLYCOLAX) packet 17 g 02/09/2020 01:00:00 PM EDT 17 g Oral active 17 g, Or al, Daily, First dose on Wed02/09/20 at 1300
hold for loose stools
[facility] Medication administered onsite Bisacodyl 10 MG Rectal Suppository bisacodyl (DULCOLAX ) suppository 10 mg bisacodyl (DULCOLAX) suppository 10 mg 02/09/2020 01:00:00 PM EDT 10 mg Rectal active 10 mg, Rectal, Daily, First dose on Wed02/09/20 at 1300
hold for loose stools
[facility] Medication administered onsite iodixanol (VISIPAQUE) 320 MG/ML injection 150 mL [id number] 02/09/2020 10:06:16 AM EDT 150 mL Intra-arterial completed 150 mL, Intra-arterial, Once in imaging, contrast, Starting Wed02/09/20 at 1006, For 1 dose [facility] Medication administered onsite heparin (porcine) injection [id number] 02/09/2020 09:24:22 AM EDT completed Code/trauma/sedation medication, Starting Wed02/09/20 at 0924 [facility] Medication administered onsite 2 ML Midazolam 1 MG/ML Injection midazolam (VERSED) in jection midazolam (VERSED) injection 02/09/2020 09:08:16 AM EDT Intravenous co mpleted Intravenous, Code/trauma/sedation medication, Starting Wed02/09/20 at 0908 [facility] Medication administered onsite fentaNYL Citrate (PF) (SUBLIMAZE) injection [id number] 02/09/2020 09:08:10 AM EDT Intravenous completed In travenous, Code/trauma/sedation medication, Starting Wed02/09/20 at 0908 [facility] Medication administered onsite DAILY CHE (THERAGRAN) 1 tablet [id number] 02/09/2020 09:00:00 AM EDT 1 {tbl} Oral active 1 tablet, Oral, Daily, First dose on Wed02/09/20 at 0900 [facility] Medication administered onsite Magnesium Chloride 0.46543 MEQ/ML / Pota ssium Chloride 0.0497 MEQ/ML / Sodium Acetate 0.0163 MEQ/ML / Sodium Chloride 0.0899 MEQ/ML / Sodium gluconate 5.02 MG/ML Injectable Solution [Normosol-R] electrolyte-R (NORMOSOL-R/PLASMALYTE-R) solution electrolyte-R (NORMOSOL-R/PLASMALYTE-R) solution 02/08 03:00:00 AM EDT Intravenous aborted at 7 5 mL/hr, Intravenous, Continuous, Starting Wed02/09/20 at 0300 [facility] Medication administered onsite Escitalopram 10 MG Oral Tablet escitalopram (LEXAPRO) tablet 10 mg escitalopram (LEXAPRO) tablet 10 mg 02/08/2020 02:00:00 PM EDT 10 mg Oral aborted 10 mg, Oral, Daily, First dose on Wed02/08/20 at 1400 [facility] Medication administered onsite normal saline flush 0.9 % injection 3 mL [id number] 02/08/2020 02:00:00 PM EDT 3 mL Intravenous aborted 3 mL , Intravenous, PROTOCOL, First dose on Wed02/08/20 at 1400, Post-op
May convert IV to a saline lock when taking in good p.o. intake (minimally 600 mL).
[facility] Medication administered onsite Docusate Sodium 100 MG Oral Capsule docusate sodium (C OLACE) capsule 100 mg docusate sodium (COLACE) capsule 100 mg 02/08/2020 02:00:00 PM EDT 100 mg Oral aborted 100 mg, Oral, 2 times daily, First dose on Em 02/08/20 at 1400, Post-op
hold for loose stools
[facility] Medication administered onsite POLYETHYLENE GLYCOL 3350 142 MG/ML Oral Solution polyethylene glycol (GLYCOLAX) packet 17 g polyethylene glycol (GLYCOLAX) packet 17 g 02/08/2020 02:00:00 PM EDT 17 g Oral aborted 17 g, Or al, Daily, First dose on Em 02/08/20 at 1400, Post-op
Start 2nd POD and continue until result.
[facility] Medication administered onsite oxyCODONE-acetaminophen (PERCOCET) 5-325 [...] 1315, For 3 days [Order 2 End] [facility] Medication administered onsite Nitroglycerin 0.4 MG Sublingual Tablet n itroglycerin (NITROSTAT) SL tablet 0.4 mg nitroglycerin (NITROSTAT) SL tablet 0.4 mg 02/08/2020 01:15:40 P M EDT 0.4 mg Sublingual active 0.4 mg, S ublingual, Every 5 min PRN, chest pain, Starting Em 02/08/20 at 1315
For angina on CABG patient. Notify MD/PA/BLADDER CLEANER.
[facility] Medication administered onsite ondansetron (ZOFRAN) injection 4 mg [id number] 02/08/2020 01:15:4 0 PM EDT 4 mg Intravenous active 4 mg, In travenous, Every 6 hours PRN, nausea, vomiting, Starting Em 02/08/20 at 1315
If no response in 15-30 minutes, give metoclopramide 10 mg IV x 1 then q6h prn N/V.
[facility] Medication administered onsite potassium chloride SA (K-DUR,KLOR-CON) CR tablet 40 mEq 5528 935902/08/2020 01:15:40 PM EDT 40 meq Oral active 40 mEq, Oral, As needed, Serum K+ 3.5-3.8, Starting Em 02/08/20 at 1315
For serum creatinine (SCR) 0.8 to 1.5
[facility] Medication administered onsite potassium chloride SA (K-DUR,KLOR-CON) CR tablet 20 mEq 5528 935902/08/2020 01:15:40 PM EDT 20 meq Oral active 20 mEq, Oral, As needed, Serum K+ 3.9-4.1, Starting Em 02/08/20 at 1315
For serum creatinine (SCR) 0.8 to 1.5
[facility] Medication administered onsite 50 ML Magnesium Sulfate 40 MG/ML Injecti on magnesium sulfate 2 g in sterile diluent magnesium sulfate 2 g in sterile diluent 02/08/2020 01:15:40 PM EDT 2 g Intravenous active 2 g, Int ravenous, at 50 mL/hr, As needed, serum Mg 1.5-1.8, Starting Em 02/08/20 at 1315
Give 2 grams magnesium sulfate IV x 2 runs over 1 hour each. For serum creatinine (SCR) 0.8 to 1.5
[facility] Medication administered onsite 50 ML Magnesium Sulfate 40 MG/ML Injecti on magnesium sulfate 2 g in sterile diluent magnesium sulfate 2 g in sterile diluent 02/08/2020 01:15:40 PM EDT 2 g Intravenous active 2 g, Int ravenous, at 50 mL/hr, As needed, serum Mg 1.9-2.1, Starting Wed02/08/20 at 1315
Give 2 grams magnesium sulfate IV x 1 run over 1 hour. For serum creatinine (SCR) 0.8 to 1.5
[facility] Medication administered onsite Aluminum Hydroxide 64 MG/ML Oral Suspens ion aluminum hydroxide (ALTERNAGEL) suspension 15 mL aluminum hydroxide (ALTERNAGEL) suspension 15 mL 02/07 01:15:39 PM EDT 15 mL Oral active 15 mL, Oral, Every 4 hours PRN, for indigestion/ gas, Starting Wed02/08/20 at 1315 [facility] Medication administered onsite Albuterol 0.83 MG/ML Inhalant Solution a lbuterol (PROVENTIL) nebulizer solution 2.5 mg albuterol (PROVENTIL) nebulizer solution 2.5 mg 2019 01:15:39 PM EDT 2.5 mg active 2.5 mg, Nebulization, RT every 2 hours as needed, wheezing, shortness of breath, Starting Wed02/08/20 at 1315 [facility] Medication administered onsite Escitalopram 10 MG Oral Tablet escitalopram (LEXAPRO) tablet 10 mg escitalopram (LEXAPRO) tablet 10 mg 02/08/2020 09:00:00 AM EDT 10 mg Oral active 10 mg, Oral, Daily, First dose on Wed02/08/20 at 0900 [facility] Medication administered onsite normal saline flush 0.9 % injection 10 mL [id number] 02/07/2020 03:00:00 PM EDT 10 mL Intravenous active 10 m L, Intravenous, Every 8 hours (scheduled), First dose on Wed02/07/20 at 1500
Flush with 10 mL NS prior and post medication administration. Flush with 10 mL NS prior to blood specimen collection and flush with 20 mL to clear solution/drug post blood specimen collection
[facility] Medication administered onsite Insulin Glargine 100 UNT/ML Injectable S olution [Lantus] insulin glargine (LANTUS) injection 20 Units insulin glargine (LANTUS) injection 20 Units 02/07/2020 10:00:00 AM EDT 20 U Subcutaneous aborted 20 Units, Subcutaneous, 2 Times Daily (Lantus), First dose on Wed02/07/20 at 1000
Basal Insulin (Lantus) Adjustments based on AM Blood Glucose Blood Glucose&nbs p; Adjustment Less than 70 mg/dl Nursing to initiate hypoglycemia protocol 70 to 100 mg/dl &nb sp; Pharmacy to decrease total daily dose by 20% 101 to 200 mg/dl &nb sp; No Change
[facility] Medication administered onsite Insulin Lispro 100 UNT/ML Injectable Justa ution insulin lispro (HumaLOG) injection 2-24 Units insulin lispro (HumaLOG) injection 2-24 Units 02/07/20 09:00:00 AM EDT Subcutaneous aborted 2-2 4 Units, Subcutaneous, MEALSS, First dose on Wed02/07/20 at 0900
RESISTANT 12 units Nutritional and Correction Insulin Scale Blood Glucose (mg/dl) <70 start hypoglycemia protocol Glucose &nbsp ; Eats >=50% Eats & amp;lt;50% Eats Nothing (mg/dl) of meal of meal or NPO &a mp;nbsp; 70- 120 8 units 4 units 0 units 121-170 12 units 6 u nits 0 units 171-220 &am p;nbsp; 14 units 8 units 2 units 221- 270 16 units&nbs p; 10 units 4 units 271- 320 18 units 12 units 6 units 321-370 &nbs p; 20 units 14 units 8 units 371- 420 22 units 16 units 10 units >420 call MD 24 units 18 units 12 units&am p;nbsp; Test glucose within 30 minutes of insulin administration. Administer insulin within 15 minutes (before or after) of the patient starting to eat. For patients that are NPO, use the NPO (correction) scale to cover POC glucose at 08:00, 12:00, 17:00.
[facility] Medication administered onsite vancomycin (VANCOCIN) IVPB 1,000 mg [id number] 02/07/2020 06:00:0 0 AM EDT 1000 mg Intravenous aborted Skin and Soft Tissue Infecti on 1,000 mg, Intravenous, Administer over 1 Hours, Every 12 hours (relative), First dose on Wed02/07/20 at 0600 [facility] Skin and Soft Tissue Infection Medication administered onsite piperacillin-tazobactam (ZOSYN) 3.375 g in sodium chloride (NS) 0.9 % 100 mL IV pigtail 02/06/2020 03:00:00 PM EDT 3.375 g Intravenous aborted Skin and Soft Tissue Infection 3.375 g, Intravenous, Admini ster over 30 Minutes, Every 6 hours (relative), First dose on Wed02/06/20 at 1500 [facility] Skin and Soft Tissue Infection Medication administered onsite vancomycin in 500mL (VANCOCIN) IV 1,500 mg [id number] 02/06/2020 03:00:00 PM EDT 1500 mg Intravenous completed Skin and Soft Tiss ue Infection 1,500 mg, Intravenous, Administer over 120 Minutes, Once, Wed02/06/20 at 1500, For 1 dose [facility] Skin and Soft Tissue Infection Medication administered onsite valacyclovir 500 MG Oral Tablet valACYclovir (VALTREX) tablet 2,000 mg valACYclovir (VALTREX) tablet 2,000 mg 02/06/2020 03:00:00 PM EDT 2000 mg Oral completed Herpes Labialis 2,000 mg, Oral, 2 times daily, Indications: Herpes Labialis, First dose on Wed02/06/20 at 1500, For 2 doses [facility] Herpes Labialis Medication administered onsite Insulin Glargine 100 UNT/ML Injectable S olution [Lantus] insulin glargine (LANTUS) injection 25 Units insulin glargine (LANTUS) injection 25 Units 02/06/2020 03:00:00 PM EDT 25 U Subcutaneous complete d 25 Units, Subcutaneous, Once, Wed02/06/20 at 1500, For 1 dose
Basal Insulin (Lantus) Adjustments based on AM Blood Glucose Blood Glucose&nbs p; Adjustment Less than 70 mg/dl Nursing to initiate hypoglycemia protocol 70 to 100 mg/dl &nb sp; Pharmacy to decrease total daily dose by 20% 101 to 200 mg/dl &nb sp; No Change
[facility] Medication administered onsite Docusate Sodium 100 MG Oral Capsule docusate sodium (C OLACE) capsule 100 mg docusate sodium (COLACE) capsule 100 mg 02/06/2020 06:00:00 AM EDT 100 mg Oral aborted 100 mg, Oral, 2 times daily, First dose on Wed02/06/20 at 0600
hold for loose stools
[facility] Medication administered onsite normal saline flush 0.9 % injection 3 mL [id number] 02/06/2020 06:00:00 AM EDT 3 mL Intravenous aborted 3 mL , Intravenous, PROTOCOL, First dose on Wed02/06/20 at 0600
With good PO intake (600 ml X 1 shift)
[facility] Medication administered onsite cefazolin (ANCEF) injection 2 g 02/06/2020 06:00:00 AM EDT 2 g Intravenous completed 2 g, Intravenou s, Administer over 6 Minutes, Every 8 hours (relative), First dose on Wed02/06/20 at 0600, For 2 doses, PACU & Post-op
Start 8 hours after pre-op dose RN may administer IV push or infuse this medication through syringe adapter set ref [phone]. Flush line after use
[facility] Medication administered onsite heparin (porcine) injection 5,000 Units [id number] 02/06/20 06:00:00 AM EDT 5000 U Subcutaneous active 5,000 Units , Subcutaneous, Every 8 hours (scheduled), First dose on Wed02/06/20 at 0600
If platelet count is less than 100,000 or hematocrit is less than 25, or if there is a 5 point decrease in hematocrit, do not give the dose and call physician/designee.
[facility] Medication administered onsite Lisinopril 5 MG Oral Tablet lisinopril (PRINIVIL,ZESTR IL) tablet 5 mg lisinopril (PRINIVIL,ZESTRIL) tablet 5 mg 02/06/2020 05:00:00 AM EDT 5 mg O ral active 5 mg, Oral, Daily, F irst dose on Wed02/06/20 at 0500
Hold for SBP <120
[facility] Medication administered onsite clopidogrel 75 MG Oral Tablet clopidogrel (PLAVIX) tab let 75 mg clopidogrel (PLAVIX) tablet 75 mg 02/06/2020 02:00:00 AM EDT 75 mg Oral active 75 mg, Oral, Daily, First dose on Wed02/06/20 at 0200 [facility] Medication administered onsite Magnesium Chloride 0.21963 MEQ/ML / Pota ssium Chloride 0.0497 MEQ/ML / Sodium Acetate 0.0163 MEQ/ML / Sodium Chloride 0.0899 MEQ/ML / Sodium gluconate 5.02 MG/ML Injectable Solution [Normosol-R] electrolyte-R (NORMOSOL-R/PLASMALYTE-R) solution electrolyte-R (NORMOSOL-R/PLASMALYTE-R) solution 02/05 02:00:00 AM EDT Intravenous aborted at 1 00 mL/hr, Intravenous, Continuous, Starting Wed02/06/20 at 0200 [facility] Medication administered onsite Acetaminophen 325 MG / Oxycodone Hydroch loride 5 MG Oral Tablet oxyCODONE- acetaminophen (PERCOCET) 5-325 MG 2 tablet oxyCODONE-acetaminophen (PERCOCET) 5- 325 MG 2 tablet 02/06/2020 12:54:13 AM EDT 2 {tbl} Oral a borted 2 tablet, Oral, Every 4 hours PRN, severe pain (7-10), Starting Wed02/06/20 at 0054, For 7 days [facility] Medication administered onsite POLYETHYLENE GLYCOL 3350 142 MG/ML Oral Solution polyethylene glycol (GLYCOLAX) packet 17 g polyethylene glycol (GLYCOLAX) packet 17 g 02/06/2020 12:54:13 AM EDT 17 g Oral active 17 g, Or al, Daily PRN, if no result from milk of magnesia (MOM), Starting Wed02/06/20 at 0054
hold for loose stools
[facility] Medication administered onsite Morphine Sulfate (PF) injection 2 mg [id number] 02/06/2020 12:54: 13 AM EDT 2 mg Intravenous aborted 2 mg, In travenous, Every 2 hour PRN, severe pain (7-10), severe pain if oral ineffective after 1 hour, Starting Wed02/06/20 at 0054, For 7 days [facility] Medication administered onsite Acetaminophen 325 MG / Oxycodone Hydroch loride 5 MG Oral Tablet oxyCODONE- acetaminophen (PERCOCET) 5-325 MG 1 tablet oxyCODONE-acetaminophen (PERCOCET) 5- 325 MG 1 tablet 02/06/2020 12:54:13 AM EDT 1 {tbl} Oral a borted 1 tablet, Oral, Every 4 hours PRN, moderate pain (4-6), Starting Wed02/06/20 at 0054, For 7 days [facility] Medication administered onsite Magnesium Hydroxide 80 MG/ML Oral Suspen roxanne magnesium hydroxide (MILK OF MAGNESIA) 400 MG/5ML suspension 30 mL magnesium hydroxide (MILK OF MAGNESIA) 4 00 MG/5ML suspension 30 mL 02/06/2020 12:00:00 AM EDT 30 mL Oral active 30 mL, Oral, Daily PRN, constipation, Starting Wed02/06/20 at 0000
If senna- docusate is not effective
[facility] Medication administered onsite Docusate Sodium 50 MG / sennosides, RESIDENTIAL 8.6 MG Oral Tablet senna-docusate (PERICOLACE) 8.6-50 MG 2 tablet senna-docusate (PERICOLACE) 8.6-50 MG 2 tablet 02/05/2020 09:00:00 PM EDT 2 {tbl} Oral active 2 tablet, Oral, Nightly, First dose on Wed02/05/20 at 2100
hold for loose stools
[facility] Medication administered onsite iopamidol (ISOVUE-370) 76 % 120 mL [id number] 02/05/2020 09:03:59 AM EDT 120 mL Intravenous completed 120 mL, Intra venous, Once in imaging, contrast, Starting Wed02/05/20 at 0903, For 1 dose [facility] Medication administered onsite Aspirin 325 MG Oral Tablet aspirin tablet 325 mg aspirin tab let 325 mg 02/05/2020 09:00:00 AM EDT 325 mg Oral active 325 mg, Oral, Daily, First dose on Wed02/05/20 at 0900 [facility] Medication administered onsite atorvastatin 80 MG Oral Tablet atorvastatin (LIPITOR) tablet 80 mg atorvastatin (LIPITOR) tablet 80 mg 02/05/2020 09:00:00 AM EDT 80 mg Oral active 80 mg, Oral, Daily, First dose on Wed02/05/20 at 0900 [facility] Medication administered onsite pantoprazole 40 MG Delayed Release Oral Tablet pantoprazole (PROTONIX) EC tablet 40 mg pantoprazole (PROTONIX) EC tablet 40 mg 02/05/2020 09:00:00 AM E DT 40 mg Oral active Gastroesophageal Reflux Diseas e 40 mg, Oral, Daily, Indications: Gastroesophageal Reflux Disease, First dose on Wed02/05/20 at 0900 [facility] Gastroesophageal Reflux Disease Medication administered onsite pregabalin 75 MG Oral Capsule pregabalin (LYRICA) caps ule 150 mg pregabalin (LYRICA) capsule 150 mg 02/05/2020 09:00:00 AM EDT 150 mg Oral active 150 mg, Oral, 2 times daily, First dose on Wed02/05/20 at 0900, For 25 doses [facility] Medication administered onsite Clotrimazole 10 MG/ML Topical Cream clot rimazole (LOTRIMIN) 1 % cream 1 application clotrimazole (LOTRIMIN) 1 % cream 1 application 2019 09:00:00 AM EDT 1 {application} Topical active 1 application, Topical, 2 times daily, First dose on Wed02/05/20 at 0900, Until Discontinued [facility] Medication administered onsite Mupirocin 0.02 MG/MG Topical Ointment mupirocin (BACTR OBAN) 2 % ointment mupirocin (BACTROBAN) 2 % ointment 02/05/2020 09:00:00 AM EDT Topical active Topical, Daily, Firs t dose on Wed02/05/20 at 0900, Until Discontinued [facility] Medication administered onsite clopidogrel 75 MG Oral Tablet clopidogrel (PLAVIX) tab let 75 mg clopidogrel (PLAVIX) tablet 75 mg 02/05/2020 09:00:00 AM EDT 75 mg Oral aborted 75 mg, Oral, Daily, First dose on Wed02/05/20 at 0900 [facility] Medication administered onsite 24 HR Bupropion Hydrochloride 150 MG Ext ended Release Oral Tablet buPROPion (WELLBUTRIN XL) 24 hr tablet 150 mg buPROPion (WELLBUTRIN XL) 24 hr tablet 1 50 mg 02/05/2020 09:00:00 AM EDT 150 mg Oral active 150 mg, Oral, Daily, First dose on Wed02/05/20 at 0900 [facility] Medication administered onsite duloxetine 60 MG Delayed Release Oral Ca psule DULoxetine (CYMBALTA) DR capsule 60 mg DULoxetine (CYMBALTA) DR capsule 60 mg 02/05/2020 09:00:00 AM EDT 60 mg Oral aborted 60 mg, Oral, 2 times daily, First dose on Wed02/05/20 at 0900 [facility] Medication administered onsite 60 ACTUAT formoterol fumarate 0.005 MG/A CTUAT / mometasone furoate 0.2 MG/ACTUAT Metered Dose Inhaler mometasone-formoterol (DULERA) 200-5 MCG/ACT inhaler 2 puff mometasone-formoterol (DULERA) 200-5 MCG/ACT inhaler 2 puff 02/05/2020 08:00:00 AM EDT 2 {puff} Inhalation active 2 pu ff, Inhalation, 2 times daily, First dose on Wed02/05/20 at 0800 [facility] Medication administered onsite Pentoxifylline 400 MG Extended Release O ral Tablet pentoxifylline (TRENTal) CR tablet 400 mg pentoxifylline (TRENTal) CR tablet 400 mg 02/05/2020 0 8:00:00 AM EDT 400 mg Oral active 400 mg, Oral, 3 times daily with meals, First dose on Wed02/05/20 at 0800 [facility] Medication administered onsite Insulin Lispro 100 UNT/ML Injectable Justa ution insulin lispro (HumaLOG) injection 1-14 Units insulin lispro (HumaLOG) injection 1-14 Units 02/05/20 08:00:00 AM EDT Subcutaneous aborted 1-1 4 Units, Subcutaneous, MEALSS, First dose on Wed02/05/20 at 0800
7 Units Nutritional and Correction Insulin Scale Blood Glucose (mg/dl) <70 start hypoglycemia protocol Glucose &nbsp ; Eats >=50% Eats <50%& amp;nbsp; Eats Nothing (mg/dl) of meal of meal or NPO &am p;nbsp;70- 120 5 units 2 units 0 units 121-170 & amp;nbsp; 7 units 4 units 0 units 171-220 & nbsp; 8 units 5 units 1 units 221-270 &nbsp ; 9 units 6 units 2 units 271- 320 11 units & nbsp; 7 units 4 units& amp;nbsp; 321- 370 12 units 8 units 5 units 371-420 &nb sp; 13 units 9 units 6 units >420 call MD 14 units 11 units 7 units Test glucose within 30 minutes of insulin administration. Administer insulin within 15 minutes (before or after) of the patient starting to eat. For patients that are NPO, use the NPO (correction) scale to cover POC glucose at 08:00, 12:00, 17:00.
[facility] Medication administered onsite ferrous sulfate 325 MG Oral Tablet ferrous sulfate tab let 325 mg ferrous sulfate tablet 325 mg 02/05/2020 07:00:00 AM EDT 325 mg Oral acti ve 325 mg, Oral, Daily with breakfast, First dose on Wed02/05/20 at 0700 [facility] Medication administered onsite 500 ML heparin [...] 1 unit/kg/hr IV58.1 - 87 Therapeutic, No Llbfkc96.1 - 97 Decrease infusion 1 unit/kg/hr IV 97.1 - 110Hold infusion for 30 minutes & decrease infusion 2 units/kg/hr IV> 110 Call MD if patient is bleeding. Hold infusion for 60 minutes & decrease infusion 3 units/kg/hr IVInitial heparin IV infusion rate:Do not exceed 1500 units/hour or 15 units/kg/hr (whichever is less)Infuse this medication only through single port tubing (SmartSite Infusion Set ref [id number]). Medication and tubing is to be discarded if infusion off for 4 hours.
[facility] Medication administered onsite normal saline flush 0.9 % injection 3 mL 13025-089-77 02/05/2020 06:00:00 AM EDT 3 mL Intravenous aborted 3 mL , Intravenous, Every 8 hours (scheduled), First dose on Wed02/05/20 at 0600
flush per protocol, D/C Main IV fluid if appropriate
[facility] Medication administered onsite dextrose 5 % and sodium chloride 0.45 % infusion 3132-9896-0 0 02/05/2020 06:00:00 AM EDT Intravenous aborted at 100 mL/hr, Intravenous, Continuous, Starting Wed02/05/20 at 0600
heplock with good PO intake
[facility] Medication administered onsite 1 ML heparin sodium, porcine 1000 UNT/ML Injection heparin (porcine) injection 1,000-10,000 Units heparin (porcine) injection 1,000-10,000 Units 020 05:18:27 AM EDT Intravenous aborted 1,000-10,000 Units, Intravenous, As needed, other, Starting Wed02/05/20 at 0518
Round dose to nearest 100 units < 34 & nbsp; &nb sp; Bolus: 75 units/kg IV (Maximum bolus: 10,000 units) 34 - 50 Bolus: 40 units/kg IV (Maximum bolus: 10,000 units)
[facility] Medication administered onsite Acetaminophen 325 MG / Hydrocodone Marline trate 5 MG Oral Tablet HYDROcodone- acetaminophen (NORCO) 5-325 MG per tablet 2 tablet HYDROcodone-acetaminophen (NORCO) 5-325 MG per tablet 2 tablet 02/05/2020 05:13:21 AM EDT 2 { tbl} Oral aborted 2 tablet, Oral, Every 6 hours PRN, severe pain (7-10), Starting Wed02/05/20 at 0513, For 7 days [facility] Medication administered onsite 2 ML Metoclopramide 5 MG/ML Prefilled Sy ringe metoclopramide (REGLAN) injection 10 mg metoclopramide (REGLAN) injection 10 mg 02/05/2020 05:12:06 AM E DT 10 mg Intravenous active 10 mg, I ntravenous, Every 6 hours PRN, for Nausea/Vomiting not relieved by zofran, Starting Wed02/05/20 at 0512 [facility] Medication administered onsite Mineral Oil 1000 MG/ML Enema mineral oil enema 1 enema mineral oil enema 1 enema 02/05/2020 05:12:02 AM EDT 1 {enema} Rectal active 1 enema, Rectal, Daily PRN, constipation, unrelieved by MOM/bisacodyl/senna-docusate, Starting Wed02/05/20 at 0512
hold for loose stools
[facility] Medication administered onsite Acetaminophen 325 MG Oral Tablet acetaminophen (TYLENO L) 325 MG tablet 650 mg acetaminophen (TYLENOL) 325 MG tablet 650 mg 02/05/2020 05:11:58 AM EDT 650 mg Oral active 650 mg, Or al, Every 4 hours PRN, mild pain (1-3), headaches, Starting Wed02/05/20 at 0511
"Maximum dose of acetaminophen is 4,000 mg from all sources in 24 hours."
[facility] Medication administered onsite Cyclobenzaprine hydrochloride 10 MG Oral Tablet cyclobenzaprine (FLEXERIL) tablet 5 mg cyclobenzaprine (FLEXERIL) tablet 5 mg 02/05/2020 05:02:15 AM ED T 5 mg Oral active 5 mg, Oral , 3 times daily PRN, muscle spasms, Starting Wed02/05/20 at 0502 [facility] Medication administered onsite Albuterol 0.83 MG/ML Inhalant Solution a lbuterol (PROVENTIL) nebulizer solution 2.5 mg albuterol (PROVENTIL) nebulizer solution 2.5 mg 2019 05:01:24 AM EDT 2.5 mg active 2.5 mg, Nebulization, RT every 4 hours as needed, wheezing, shortness of breath, Starting Wed02/05/20 at 0501 [facility] Medication administered onsite 4 mg 02/04/2020 12:00:00 AM EDT tablet 5 TAKE ONE TABLET BY MOUTH EVERY 6 TO 8 HOURS NEEDED FOR NAUSEA / VOMITING TAKE ONE TABLET BY MOUTH EVERY 6 TO 8 HOURS NEEDED FOR NAUSEA / VOMITING SOLD: 02/14/2020 [facility] 5-325 mg 02/02/2020 12:00:00 AM EDT tablet [...] EVERY DAY SOLD: 02/02/2020 [facility] Escitalopram 10 MG Oral Tablet ESCITALOPRAM OXALATE 02/02/2020 1 2:00:00 AM EDT tablet 90 TAKE ONE TABLET BY MOUTH EVERY D AY TAKE ONE TABLET BY MOUTH EVERY DAY SOLD: 04/30/2020 [facility] 60 mg 01/29/2020 12:00:00 [...] TWICE A DAY SOLD: 02/19/2020 [facility] 100 mg 01/19/2020 12:00:00 AM EDT capsule 60 TAKE ONE CAPSULE BY MOUTH TWICE A DAY TAKE ONE CAPSULE BY MOUTH TWICE A DAY SOLD: 04/21/2020 [facility] 100 mg 01/19/2020 12:00:00 AM [...] CAPSULE BY MOUTH TWICE A DAY SOLD: 06/27/2020 [facility] 100 mg 01/19/2020 12:00:00 AM EDT capsule 18 TAKE ONE CAPSULE BY MOUTH TWICE A DAY TAKE ONE CAPSULE BY MOUTH TWICE A DAY SOLD: 05/16/2020 [facility] 1.5 mg/0.5 mL 01/19/2020 12:00:00 AM EDT pen injector 6 INJECT 1 (1.5MG) SUBCUTANEOUSLY EVERY WEEK INJECT 1 (1.5MG) SUBCUTANEOUSLY EVERY WEEK SOLD: 01/22/2020 [facility] 5-325 mg 01/18/2020 12:00:00 AM [...] 15 mg 01/17/2020 12:00:00 AM EDT tablet 30 TAKE ONE TABLET BY MOUTH EVERY DAY. BE SURE TO STAY WELL HYDRATED TAKE ONE TABLET BY MOUTH EVERY DAY. BE S URE TO STAY WELL HYDRATED SOLD: 07/11/2020 [facility] 15 mg 01/17/2020 12:00:00 [...] = THREE TABLETS SOLD: 01/12/2020 [facility] 5-325 mg 01/05/2020 12:00:00 AM EDT tablet 21 TAKE ONE TABLET BY MOUTH EVERY 8 HOURS NEEDED FOR PAIN MAXIMUM DAILY DOSE = THREE TABLETS TAKE ONE TABLET BY MOUTH EVERY 8 HOURS NEEDED FOR PAIN MAXIMUM DAILY DOSE = THREE TABLETS SOLD: 01/05/2020 [facility] Wheelchair 01/05/2020 12:00:00 AM EDT active [facility] ([facility]) empagliflozin 25 MG Oral Tablet [Jardiance] Jardiance 01/05/2020 12:00:00 AM EDT ORAL active [facility] ([facility]) 150 mg 01/05/2020 12:00:00 AM EDT capsule 60 TAKE ONE CAPSULE BY MOUTH TWICE A DAY MAXIMUM DAILY DOSE = 2 TABLETS TAKE ONE CAPSULE BY MOUTH TWICE A DAY MAXIMUM DAILY DOSE = 2 TABLETS SOLD: 01/05/2020 [facility] 4 mg 01/04/2020 12:00:00 AM EDT tablet 30 TAKE ONE TO TWO TABLETS BY MOUTH EVERY 6 HOURS NEEDED FOR NAUSEA TAKE ONE TO TWO TABLETS BY MOUTH EVERY 6 HOURS NEEDED FOR NAUSEA SOLD: 01/05/2020 [facility] 750 mg 12/31/2019 12:00:00 AM EDT [...] = 3 TABLETS SOLD: 12/22/2019 [facility] 5-325 mg 12/18/2019 12:00:00 AM EDT tablet 20 TAKE ONE TO TWO TABLETS BY MOUTH EVERY 4 HOURS NEEDED FOR PAIN MAXIMUM DAILY DOSE = 8 TAKE ONE TO TWO TABLETS BY MOUTH EVERY 4 HOURS NEEDED FOR PAIN MAXIMUM DAILY DOSE = 8 SOLD: 12/18/2019 [facility] Acetaminophen 325 MG / Hydrocodone Bitartrate 5 MG Ora l Tablet Hydrocodone-Acetaminophen 12/18/2019 12:00:00 AM EDT ORAL completed [facility] ([facility] 10 mg 12/07/2019 12:00:00 AM EDT tablet [...] BY MOUTH TWICE A DAY SOLD: 02/01/2020 [facility] 10 mg 12/07/2019 12:00:00 AM EDT tablet 60 TAKE ONE TABLET BY MOUTH TWICE A DAY TAKE ONE TABLET BY MOUTH TWICE A DAY SOLD: 04/21/2020 [facility] 10 mg 12/07/2019 12:00:00 AM EDT tablet 60 TAKE ONE TABLET BY MOUTH TWICE A DAY TAKE ONE TABLET BY MOUTH TWICE A DAY SOLD: 02/28/2020 [facility] 60 mg 12/06/2019 12:00:00 AM EDT capsule,delayed release (DR/EC) 60 TAKE ONE CAPSULE BY MOUTH TWICE A DAY TAKE ONE CAPSULE BY MOUTH TWICE A DAY SOLD: 01/02/2020 [facility] 21 mg/24 hr 11/17/2019 12:00:00 AM EDT patch 24 hour 28 APPLY 1 PATCH DAILY TO YOUR BODY ALTERNATE SITES APPLY 1 PATCH DAILY TO YOUR BODY ALTERNATE SITES SOLD: 12/18/2019 [facility] 40 mg 11/17/2019 12:00:00 AM EDT capsule,delayed release (DR/EC) 180 TAKE ONE CAPSULE BY MOUTH TWICE A DAY TAKE ONE CAPSULE BY MOUTH TWICE A DAY SOLD: 02/14/2020 [facility] 24 HR Bupropion Hydrochloride 150 MG Extended Release Oral T ablet BUPROPION HCL 11/17/2019 12:00:00 AM EDT tablet extended release 24 hr 90 TAKE ONE TABLET BY MOUTH EVERY DAY TAKE ONE TABLET BY MOUTH EVERY DAY SOLD: 02/14/2020 [facility] atorvastatin 80 MG Oral Tablet ATORVASTATIN CALCIUM 11/01/2019 1 2:00:00 AM EDT tablet 90 TAKE ONE TABLET BY MOUTH EVERY E VENING TAKE ONE TABLET BY MOUTH EVERY EVENING SOLD: 01/29/2020 [facility] 5 mg 10/04/2019 12:00:00 AM EDT tablet 90 TAKE ONE TABLET BY MOUTH EVERY DAY TAKE ONE TABLET BY MOUTH EVERY DAY SOLD: 01/02/2020 [facility] BLOOD SUGAR DIAGNOSTIC 08/21/2019 12:00:00 AM EDT strip 150 TEST THREE TIMES A DAY WITH INSULIN USE TEST THREE TIMES A DAY WITH INSULIN USE SOLD: 04/10/20 [facility] BLOOD SUGAR DIAGNOSTIC 08/21/2019 12:00:00 AM EDT strip 150 TEST THREE TIMES A DAY WITH INSULIN USE TEST THREE TIMES A DAY WITH INSULIN USE SOLD: 01/05/20 [facility] clopidogrel 75 MG Oral Tablet clopidogrel (PLAVIX) 75 MG tablet clopidogrel (PLAVIX) 75 MG tablet 07/26/2019 12:00:00 AM EDT 75 mg Oral aborted Take 75 mg by mouth daily [facility] 325 mg (65 mg iron) 07/22/2019 12:00:00 AM EDT tablet 30 TAKE ONE TABLET BY MOUTH EVERY DAY ON AN EMPTY STOMACH WITH VITAMIN CAPSULE TAKE ONE TABLET BY MOUTH EVERY DAY ON AN EMPTY STOMACH WITH VITAMIN CAPSULE SOLD: 12/18/2019 [facility] Ondansetron 4 MG Oral Tablet ondansetron (ZOFRAN) 4 MG tablet ondansetron (ZOFRAN) 4 MG tablet 07/22/2019 12:00:00 AM EDT ab orted as needed [facility] 0.5 ML dulaglutide 3 MG/ML Auto-Injector [Trulicity] TRULICITY 1.5 MG/0.5ML SOPN TRULICITY 1.5 MG/0.5ML SOPN 4.5 mg Subcutaneous ab orted Inject 4.5 mg under the skin once a week on Wednesday [facility] Mupirocin 0.02 MG/MG Topical Ointment mupirocin (BACTR OBAN) 2 % ointment mupirocin (BACTROBAN) 2 % ointment 05/26/2019 12:00:00 AM EST aborted APPLY TO AFFECTED AREA S ON FOOT WOUND ONCE DAILY [facility] B-D ULTRAFINE III SHORT PEN 31G X 8 MM [facility] [id number] 03/07/2019 12:00:00 AM EST aborted USE ONE PEN NEED LE EVERY DAY FOR TOUEO PEN [facility] 31 gauge x 5/16" 03/07/2019 12:00:00 AM EST needle 100 USE ONE PEN NEEDLE EVERY DAY FOR TOUEO PEN USE ONE PEN NEEDLE EVERY DAY FOR TOUEO PEN SOLD: 01/22/2020 [facility] Aspirin 325 MG Oral Tablet ASPIRIN ADULT 325 MG tablet ASPIRIN ADULT 325 MG tablet 03/06/2019 12:00:00 AM EST 325 mg Oral aborted Take 325 mg by mouth daily [facility] Nystatin 100 UNT/MG Topical Powder nystatin (MYCOSTATI N) powder nystatin (MYCOSTATIN) powder 1 {application} Topical aborted Apply 1 application topically 2 (two) times a day as needed (for rash) [facility] STEGLATRO 15 MG TABS 6152-0965-78 15 mg Oral abor chanell Take 15 mg by mouth daily [facility] 30 ACTUAT fluticasone furoate 0.2 MG/ACT UAT / vilanterol 0.025 MG/ACTUAT Dry Powder Inhaler [Breo] BREO ELLIPTA 200-25 MCG/INH AEPB BREO ELLIPTA 200-25 MCG/INH AEPB 02/16/2019 12:00:00 AM EDT 1 {puff} Inhalation aborted Inhale 1 puff daily [facility] pregabalin 150 MG Oral Capsule pregabalin (LYRICA) 150 MG capsule pregabalin (LYRICA) 150 MG capsule 150 mg Oral aborted Take 150 mg by mouth 2 (two) times a day [facility] 325 mg 11/03/2018 12:00:00 AM EDT tablet,delayed release (DR/EC) 30 TAKE ONE TABLET BY MOUTH EVERY DAY TAKE ONE TABLET BY MOUTH EVERY DAY SOLD: 01/16/2020 [facility] ONE TOUCH ULTRA TEST test strip [id number] 12/21/2015 12:00:00 AM EDT aborted USE TO TEST THREE TIMES A DA Y [facility] B-D INS SYR ULTRAFINE 1CC/31G 31G X 5/16" 1 ML [facility] [id number] 10/11/2015 12:00:00 AM EDT aborted USE THR EE TIMES A DAY [facility] Acetaminophen 325 MG / Hydrocodone Marline trate 5 MG Oral Tablet HYDROcodone- acetaminophen (NORCO) 5-325 MG per tablet HYDROcodone-acetaminophen (NORCO) 5- 325 MG per tablet 1 {tbl} Oral aborted Take 1 tablet by mouth every 6 (six) hours as needed for pain [facility] Omeprazole 40 MG Delayed Release Oral Ca psule omeprazole (PRILOSEC) 40 MG capsule omeprazole (PRILOSEC) 40 MG capsule 40 mg Oral aborted Take 40 mg by mouth 2 (two) times a day [facility] duloxetine 60 MG Delayed Release Oral Ca psule DULoxetine (CYMBALTA) 60 MG capsule DULoxetine (CYMBALTA) 60 MG capsule 60 mg Oral aborted Take 60 mg by mouth 2 (two) times a day [facility] Insulin Lispro 100 UNT/ML Injectable Justa ution insulin lispro (ADMELOG) 100 UNIT/ML injection insulin lispro (ADMELOG) 100 UNIT/ML injection Subcutaneous aborted Inject under the skin 3 times daily sliding scale [facility] Escitalopram 10 MG Oral Tablet escitalopram (LEXAPRO) 10 MG tablet escitalopram (LEXAPRO) 10 MG tablet 10 mg Oral aborted T fito 10 mg by mouth daily [facility] Insurance Providers Payer name Policy type / Coverage type Policy ID Covered democrat ID Covered democrat's relationship to amanda Policy Amanda Plan Information Ghi FHP-(DO Not Use) Medigap Part B [id number] Self 0 [id number] Ghi FHP-(DO Not Use) Medigap Part B [id number] Self [id number] Ghi FHP-(DO Not Use) Medigap Part B [id number] Self 0 [id number] Ghi FHP-(DO Not Use) Medigap Part B [id number] Self 0 [id number] Ghi FHP-(DO Not Use) Medigap Part B [id number] Self 0 [id number] Ghi FHP-(DO Not Use) Medigap Part B [id number] Self 0 [id number] Ghi FHP-(DO Not Use) Medigap Part B [id number] Self 0 [id number] Ghi FHP-(DO Not Use) Medigap Part B [id number] Self 0 [id number] Ghi FHP-(DO Not Use) Medigap Part B [id number] Self 0 [id number] MEDICAID [id number] SP [id number] EMEDNY [id number] SP [id number] Medicaid S [id number] S [id number] Managed Care - Community Plan [facility] P [id number] S [id number] Managed Care - [facility] Community Plan P [id number] S [id number] [facility] Community Plan Commercial [id number] Self [id number] [facility] Hmo Commercial [id number] Self [id number] [facility] MEDICAID [id number] xxxxxxxxx [id number] [facility] MEDICAID [id number] Jojo [id number] 35 [facility] MEDICAID [id number] Jojo [id number] [facility] Hmo Commercial [id number] Self [id number] [facility] Hmo Commercial [id number] Self [id number] [facility] [id number] Self 1 [id number] [facility] [id number] Self 1 [id number] [facility] Commercial [id number] Self 1 [id number] [facility] Commercial [id number] Self 1 [id number] [facility] Commercial [id number] Self 1 [id number] [facility] Commercial [id number] Self 1 [id number] [facility] Commercial [id number] Self [id number] [employer] MCDO [id number] SP [id number] [facility] Commercial [id number] Self [id number] [facility] MEDICAID [id number] Jojo [id number] 35 [facility] MEDICAID [id number] Jojo [id number] 35 [employer] COMMUNITY PLAN MCDHMO [id number] SP [id number] UN COMMUNITY PLAN MCDHMO [id number] SP [id number] INSURANCE COVID-19 [id number] xxxxx [id number] INSURANCE COVID-19 COVID Jojo C OVID [facility] Commercial Insurance Co. [id number] Self [id number] [facility] Health Maintenance Organization (HMO) [id number] Self [id number] Self Pay O [id number] S [id number] Self Pay P UNAVAILABLE S UNAVAILA BLE Medicaid [place] Medigap Part B [id number] [id number]. 35768.0 Self [id number] HMO BLUE [id number] SP [id number] BS [place] Hmo Blue Option Medigap Part B [id number] [id number] Self V [id number] Medicaid [place] Medigap Part B [id number] 2.0.1.935278.3.227.99.991. 98871.0 Self [id number] HMO BLUE [id number] SP [id number] BS [place] Hmo Blue Option Medigap Part B [id number] [id number] Self V [id number] Medicaid O UNAVAILABLE S UNAVAILA BLE Medicaid [place] Medigap Part B [id number] 2.0.1.055576.3.227.99.991. 90050.0 Self [id number] [facility] [id number] S [id number] BS [place] Hmo Blue Option Medigap Part B [id number] 2..[id number] Self V [id number] Medicaid [place] Medigap Part B [id number] 2..[id number]. 22224.0 Self [id number] [facility] [place] Hmo Blue Option Medigap Part B [id number] Self V [id number] [facility]-Community Plan-[place] Commercial [id number] [id number] Self 1 [id number] Medicaid [place] Medigap Part B [id number] 2.0.1.808231.3.227.99.991. 03483.0 Self [id number] [facility] [place] Hmo Blue Option Medigap Part B [id number] [id number] Self V [id number] [facility] MCDHMO [id number] SP [id number] [facility]-Community Plan-[place] Commercial [id number] [id number] Self [id number] Medicaid [place] Medigap Part B [id number] Self [id number] BS [facility] Hmo Blue Option Medigap Part B [id number] Self [id number] [employer] COMMUNITY [employer]AN MCDO [id number] SP [id number] [facility] [place]/[facility] Health Maintenance Organization (HMO) [id number] Self [employer] MEDICAID MCD HMO [id number] S [id number] [employer] COMMUNITY PLAN XIX [id number] 18 [id number] Medicaid [place] Medigap Part B [id number] 2...[id number]. 45346.0 Self [id number] [facility] Hmo Blue Option Medigap Part B [id number] Self V [id number] [facility] Health Maintenance Organization (HMO) [id number] Self [id number] Medicaid [place] Medigap Part B [id number] [id number]. 35412.0 Self [id number] [facility] Hmo Blue Option Medigap Part B [id number] Self V [id number] Medicaid [place] Medigap Part B [id number] 74902.0 Self [id number] [facility] Hmo Blue Option Medigap Part B [id number] Self V [id number] Managed Care BCBS O [id number] S [id number] Problems, Conditions, and Diagnoses Code Display Name Description Problem Type Effective Dates Data Source(s) I70.223 Atherosclerosis of [place] ar teries of extremities with rest pain, bilateral legs Atherosclerosis of [place] arteries of ex Diagnosis 08/13/2020 09:43:00 AM EDT [facility] I73.9 Peripheral vascular disease, unspecified Peripheral vascular disease, unspecified Diagnosis 06/21/2020 10:28:37 AM [facility] Z79.4 penitentiary (current) use of insulin penitentiary (cu rrent) use of insulin Diagnosis 06/21/2020 10:28:37 AM [facility] E11.51 Type 2 diabetes mellitus wit h diabetic peripheral angiopathy without gangrene Type 2 diabetes mellitus with diabetic p Diagnosis 06/21/2020 10:28:37 AM [facility] E78.5 Hyperlipidemia, unspecified Hyperlipidemia, unspecifie d Diagnosis 06/21/2020 10:28:37 AM [facility] F17.210 Nicotine dependence, cigarettes, uncompl icated Nicotine dependence, cigarettes, uncompl Diagnosis 06/21/2020 10:28:37 AM [facility] I25.10 Atherosclerotic heart diseas e of [place] coronary artery without angina pectoris Atherosclerotic heart disease of [place] Diagnosis 06/21/2020 10:28:37 AM [facility] I21.3 ST elevation (STEMI) myocardial infarcti on of unspecified site ST elevation (STEMI) myocardial infarcti Diagnosis 05/18/2020 01:17:38 AM [facility] S31.109A Unspecified open wound of ab dominal wall, unspecified quadrant without penetration into peritoneal cavity, initial encounter Unspecified open wound of abdominal wall Diagnosis 04/10/2020 11:17:08 PM [facility] M86.172 Other acute osteomyelitis, left ankle an d foot Other acute osteomyelitis, left ankle an Diagnosis 02/18/2020 04:40:24 PM [facility] T81.9XXA Unspecified complication of procedure, i nitial encounter Unspecified complication of procedure, i Diagnosis 02/18/2020 04:40:24 PM [facility] T81.89XA Other complications of proce dures, not elsewhere classified, initial encounter Other complications of procedures, not e Diagnosis 02/06/2020 11:29:36 AM EDT [facility] M86.171 Other acute osteomyelitis, right ankle a nd foot Other acute osteomyelitis, right ankle a Diagnosis 02/05/2020 04:17:29 AM EDT [facility] T81.89XA Other complications of proce dures, not elsewhere classified, initial encounter Other complications of procedures, not e Diagnosis 01/23/2020 11:08:56 AM EDT [facility] Practices G89.29 [id number] Other chronic pain Problem 01/16/2021 12:00: 00 AM EDT eCW1 ([facility]) G62.9 [id number] Neuropathy Problem 01/16/2021 12:00:00 AM ED T eCW1 ([facility]) E11.621 Foot ulcer due to type 2 diabetes [facility] Diabetes mellitus with foot ulcer Problem 12/24/2020 12:00:00 AM EDT eCW1 ([facility]) L97.424 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 Non-pressure chronic ulcer of left heel and midfoot wi th necrosis of bone Problem 11/27/2020 12:00:00 AM EDT eCW1 ([facility]) J44.9 COPD (chronic obstructive pulmonary dise ase) COPD (chronic obstructive pulmonary disease) [id number] 05/18/2020 12:00:00 AM [facility] K21.9 Chronic GERD Chronic GERD [id number] 05/18/2020 12:00:00 A M [facility] E11.40 Diabetic neuropathy Diabetic neuropathy [id number] 05/18/2020 12:00:00 AM [facility] E78.5 HLD (hyperlipidemia) HLD (hyperlipidemia) [id number] 05/18/2020 12:00:00 AM [facility] F17.210 Heavy cigarette smoker (20-39 per day) H eavy cigarette smoker (20-39 per day) [id number] 05/18/2020 12:00:00 AM EST [facility] E11.59 Type 2 diabetes mellitus wit h circulatory disorder, with long-term current use of insulin Type 2 diabetes mellitus with senior cyber intelligence analyst y disorder, with long-term current use of insulin [id number] 05/18/2020 12:00:00 AM EST [facility] E66.9 Obesity Obesity [id number] 05/18/2020 12:00:00 AM ES T [facility] I21.3 STEMI (ST elevation myocardial infarctio n) STEMI (ST elevation myocardial infarction) [id number] 05/18/2020 12:00:00 AM EST [facility] I21.3 ST elevation myocardial infarction (STEM I) ST elevation myocardial infarction (STEMI) [id number] 05/18/2020 12:00:00 AM EST [facility] T81.42XA Infection following a proced ure, deep incisional surgical site, initial encounter Infection following a procedure, deep in cisional surgical site, initial encounter Problem 04/16/2020 12:00:00 AM EST NETSMART ([facility]) 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 Problem 04/16/2020 12:00:00 AM EST NETSMART ([facility]) J44.9 Chronic obstructive pulmonary disease, u nspecified Chronic obstructive pulmonary disease, unspecified Problem 04/16/2020 12:00:00 AM EST NE NATHALYMART ([facility]) E11.40 Type 2 diabetes mellitus with diabetic n europathy, unspecified Type 2 diabetes mellitus with diabetic neuropathy, unspecified Problem 04/16/2020 12:00:00 AM EST NETSMART ([facility] ) M19.90 Unspecified osteoarthritis, unspecified site Unspecified osteoarthritis, unspecified site Problem 04/16/2020 12:00:00 AM EST NETSMART ([facility]) K21.9 Gastro-esophageal reflux disease without esophagitis Gastro-esophageal reflux disease without esophagitis Problem 04/16/2020 12:00:00 AM ES Robin ARECHIGAT ([facility]) G47.33 Obstructive sleep apnea (adult) (pediatr ic) Obstructive sleep apnea (adult) (pediatric) Problem 04/16/2020 12:00:00 AM EST NETSMART ([facility]) Z95.828 Presence of other vascular implants and grafts Presence of other vascular implants and grafts Problem 04/16/2020 12:00:00 AM EST NETS MART ([facility]) Z91.81 History of falling History of falling Problem 0 12:00:00 AM EST NETSMART ([facility]) Z95.1 Presence of aortocoronary bypass graft P resence of aortocoronary bypass graft Problem 04/16/2020 12:00:00 AM EST NETSMART ([facility]) E11.51 Type 2 diabetes mellitus wit h diabetic peripheral angiopathy without gangrene Type 2 diabetes mellitus with diabetic p eripheral angiopathy without gangrene Problem 04/16/2020 12:00:00 AM EST NETSMART ([facility]) I70.213 Atherosclerosis of [place] ar teries of extremities with intermittent claudication, bilateral legs Atherosclerosis of [place] arteries of ex tremities with intermittent claudication, bilateral legs Problem 020 12:00:00 AM EST NETSMART ([facility] ) I25.10 Atherosclerotic heart diseas e of [place] coronary artery without angina pectoris Atherosclerotic heart disease of [place] coronary artery without angina pectoris Problem 04/16/2020 12:00:00 AM EST NETSMART ([facility]) I10 Essential (primary) hypertension Essential (primary) h ypertension Problem 04/16/2020 12:00:00 AM EST NETSMART ([facility] ) F17.210 Nicotine dependence, cigarettes, uncompl icated Nicotine dependence, cigarettes, uncomplicated Problem 04/16/2020 12:00:00 AM EST NETSMAR T ([facility]) Z79.4 penitentiary (current) use of insulin penitentiary (cu rrent) use of insulin Problem 04/16/2020 12:00:00 AM EST NETSMART ([facility]) Z79.02 penitentiary (current) use of antithromboti cs/antiplatelets terminal make up operator (current) use of antithrombotics/antiplatelets Problem 020 12:00:00 AM EST HAWKT ([facility] ) Z79.82 terminal make up operator (current) use of aspirin terminal make up operator (cu rrent) use of aspirin Problem 04/16/2020 12:00:00 AM EST NETSMART ([facility]) E11.621 Type 2 diabetes mellitus with foot ulcer Type 2 diabetes mellitus with foot ulcer Problem 04/16/2020 12:00:00 AM EST NETSMART ([facility]) S31.109A Right groin wound Right groin wound [id number] 04/12 12:00:00 AM EST [facility] [id number] Coronary arteriosclerosis Coronary arteriosclerosis Pr oblem 02/20/2020 12:00:00 AM EST MEDENT ([facility]) [id number] Atherosclerosis of arteries of the extre mities Atherosclerosis of arteries of the extremities Problem 02/20/2020 12:00:00 AM EST MEDEN T ([facility]) A49.8 Pseudomonas aeruginosa infection Pseudomonas aer uginosa infection [id number] 02/13/2020 12:00:00 AM EDT [facility] [id number] Infection due to Pseudomonas aeruginosa Infection due to Pseudomonas aeruginosa Problem 02/13/2020 12:00:00 AM EDT MEDENT ([facility] M86.9 Osteomyelitis of foot Osteomyelitis of foot [id number] 02/07/2020 12:00:00 AM EDT [facility] [id number] Osteomyelitis of ankle AND/OR foot Osteomyelitis of ankle AND/OR foot Problem 02/07/2020 12:00:00 AM EDT MEDENT ([facility]) Z48.812 Encounter for surgical after care following surgery on the circulatory system Encounter for surgical aftercare followi ng surgery on the circulatory system Problem 02/06/2020 01:00:00 AM EDT NETSMART ([facility]) I99.8 Ischemia of right lower extremity Ischemia of ri ght lower extremity [id number] 02/06/2020 12:00:00 AM EDT [facility] [id number] Type 2 diabetes mellitus Type 2 diabetes mellitus Prob arnulfo 02/06/2020 12:00:00 AM EDT MEDENT ([facility]) Note: Last Assessment & Plan: Diabetes i s poorly controlled. [id number] Ischemia of right lower extremity Ischem ia of right lower extremity Problem 02/06/2020 12:00:00 AM EDT MEDENT ([facility]) [id number] Hyperlipidemia Hyperlipidemia Problem 02/06/2020 12:00: 00 AM EDT MEDENT ([facility]) Note: Last Assessment & Plan: Started on Atorvastatin 80mg 07/2019. She is tolerating medication without side effects. Due for repeat lipids. If LDL not <70 I recommend consideration to adding Zetia or PCSK9. Lipid order given to patient today [id number] Heavy cigarette smoker (20-39 cigs/day) Heavy cigarette smoker (20-39 cigs/day) Problem 02/06/2020 12:00:00 AM [facility] Note: Overview: since 18 yo Last Assessm ent & Plan: Patient is a heavy smoker and is working on cutting back. She was prescribed nicotine patches and Wellbutrin and plans to start both in the near future. She was counseled extensively on the benefits of smoking cessation and the risks of continued tobacco abuse. [id number] Chronic obstructive lung disease Chronic obstruc tive lung disease Problem 02/06/2020 12:00:00 AM EDT MEDENT ([facility] L97.423 [id number] Non-pressure chronic ulcer of left heel and midfoot with necrosis of muscle Problem 01/25/2020 12:00:00 AM EDT eCW1 ([facility]) L97.513 [id number] Non-pressure chronic ulcer of other part of right foot with necrosis of muscle Problem 01/25/2020 12:00:00 AM EDT eCW1 ([facility]) [id number] 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 Com plication after wiring of sternum Problem 01/24/2020 12:00:00 AM EDT MEDENT ([facility]) Note: Overview: Added automatically from request for surgery [id number] Protruding sternal wires Protruding sternal wires 6457 200001/24/2020 12:00:00 AM EDT [facility] Z79.4 [id number] penitentiary (current) use of insulin Proble m 01/17/2020 12:00:00 AM EDT eCW1 ([facility]) L97.509 [id number] Non-pressure chronic ulcer of other part of unspecified foot with unspecified severity Problem 01/17/2020 12:00:00 AM EDT [facility] E11.621 [id number] Type 2 diabetes mellitus with foot ulcer Problem 01/17/2020 12:00:00 AM EDT eCW1 ([facility]) [id number] Long-term current use of oral hypoglycem ic medication Long-term current use of oral hypoglycemic medication Problem 01/05/2020 12:00 :00 AM EDT MEDENT ([facility]) Surgeries/Procedures Procedure Description Date Indications Data Source(s) FINE NEEDLE ASPIRATION W/O IMAGING GUIDANCE 01/09/2021 12:00:00 AM EDT eCW1 ([facility]) FINE NEEDLE ASPIRATION W/O IMAGING GUIDANCE 12/26/2020 12:00:00 AM EDT eCW1 ([facility]) FINE NEEDLE ASPIRATION W/O IMAGING GUIDANCE 12/12/2020 12:00:00 AM EDT eCW1 ([facility]) FINE NEEDLE ASPIRATION W/O IMAGING GUIDANCE 11/15/2020 12:00:00 AM EDT eCW1 ([facility]) FINE NEEDLE ASPIRATION W/O IMAGING GUIDANCE 11/01/2020 12:00:00 AM EDT eCW1 ([facility]) DEBRIDEMENT NAIL ANY METHOD 6/> 10/14/2020 12:00:00 AM EDT MEDENT ([facility] FINE NEEDLE ASPIRATION W/O IMAGING GUIDANCE 10/11/2020 12:00:00 AM EDT eCW1 ([facility]) FINE NEEDLE ASPIRATION W/O IMAGING GUIDANCE 10/04/2020 12:00:00 AM EDT eCW1 ([facility]) FINE NEEDLE ASPIRATION W/O IMAGING GUIDANCE 09/27/2020 12:00:00 AM EDT eCW1 ([facility]) FINE NEEDLE ASPIRATION W/O IMAGING GUIDANCE 09/12/2020 12:00:00 AM EDT eCW1 ([facility]) FINE NEEDLE ASPIRATION W/O IMAGING GUIDANCE 08/29/2020 12:00:00 AM EDT eCW1 ([facility]) FINE NEEDLE ASPIRATION W/O IMAGING GUIDANCE 08/15/2020 12:00:00 AM EDT eCW1 ([facility]) INTRODUCTION CATHETER AORTA <td>IR IS ARTERIOGRAM EXTR EMITY SINGLE LEFT</td><td>Routine</td><td>08/13/2020 1:12 PM EDT</td><td> Atherosclerosis of [place] arteries of extremities with rest pain, bilateral legs</td><td> </td> 08/13/2020 01:12:01 PM EDT Atherosclerosis of [place] arteries of ex tremities with rest pain, bilateral legs [facility] Atherosclerosis of [place] arteries of ex tremities with rest pain, bilateral legs FINE NEEDLE ASPIRATION W/O IMAGING GUIDANCE 08/09/2020 12:00:00 AM EDT eCW1 ([facility]) FINE NEEDLE ASPIRATION W/O IMAGING GUIDANCE 07/30/2020 12:00:00 AM EDT eCW1 ([facility]) DEBRIDEMENT NAIL ANY METHOD 6/> 07/26/2020 12:00:00 AM EDT MEDENT ([facility] FINE NEEDLE ASPIRATION W/O IMAGING GUIDANCE 07/24/2020 12:00:00 AM EDT eCW1 ([facility]) FINE NEEDLE ASPIRATION W/O IMAGING GUIDANCE 07/16/2020 12:00:00 AM EDT eCW1 ([facility]) FINE NEEDLE ASPIRATION W/O IMAGING GUIDANCE 07/12/2020 12:00:00 AM EDT eCW1 ([facility]) DUP-SCAN LXTR ART/ARTL BPGS COMPL BI STUDY 07/09/2020 12:00:00 AM EDT MEDENT ([facility]) FINE NEEDLE ASPIRATION W/O IMAGING GUIDANCE 07/05/2020 12:00:00 AM EDT eCW1 ([facility]) FINE NEEDLE ASPIRATION W/O IMAGING GUIDANCE 06/28/2020 12:00:00 AM EST eCW1 ([facility]) Medication: Silver Nitrate Stick topically 06/28/2020 12:00:00 AM EST eCW1 ([facility]) POCT AMB EKG <td>POCT AMB EKG</td><td>Rou jw</td><td>06/21/2020 4:13 PM EST</td><td> Coronary artery disease involving [place] coronary artery of [place] heart without angina pectoris</td><td> </td> 06/21/2020 09:13:00 PM EST Coronary artery disease involving [place] coronary artery of [place] heart without angina pectoris [facility] Coronary artery disease involving [place] coronary artery of [place] heart without angina pectoris FINE NEEDLE ASPIRATION W/O IMAGING GUIDANCE 06/21/2020 12:00:00 AM EST eCW1 ([facility]) FINE NEEDLE ASPIRATION W/O IMAGING GUIDANCE 05/31/2020 12:00:00 AM EST eCW1 ([facility]) FINE NEEDLE ASPIRATION W/O IMAGING GUIDANCE 05/24/2020 12:00:00 AM EST eCW1 ([facility]) DEBRIDEMENT NAIL ANY METHOD 6/> 05/21/2020 12:00:00 AM EST MEDENT ([facility] GLUC BLD GLUC MNTR DEV CLEARED FDA SPEC HOME USE <td>P OCT GLUCOSE</td><td>Routine</td><td>05/19/2020 12:47 PM EST</td><td></td><td> </td> 05/19/2020 05:47:00 PM EST [facility] ECHO TTHRC R-T 2D W/WOM-MODE COMPL SPEC&COLR DOP <td>E CHOCARDIOGRAM TRANSTHORACIC</td><td>Routine</td><td>05/19/2020 9:43 AM EST</td><td></td><td> </td> 05/19/2020 02:43:23 PM EST [facility] GLUC BLD GLUC MNTR DEV CLEARED FDA SPEC HOME USE <td>P OCT GLUCOSE</td><td>Routine</td><td>05/19/2020 7:37 AM EST</td><td></td><td> </td> 05/19/2020 12:37:00 PM EST [facility] BLOOD COUNT COMPLETE AUTOMATED <td>CBC</td><td>Routine </td><td>05/19/2020 6:32 AM EST</td><td></td><td> </td> 05/19/2020 11:32:00 AM EST [facility] BASIC METABOLIC PANEL CALCIUM TOTAL <td>BASIC METABOLI C PANEL</td><td>Routine</td><td>05/19/2020 6:32 AM EST</td><td></td><td> </td> 05/19/2020 11:32:00 AM EST [facility] GLUC BLD GLUC MNTR DEV CLEARED FDA SPEC HOME USE <td>P OCT GLUCOSE</td><td>Routine</td><td>05/18/2020 6:28 PM EST</td><td></td><td> </td> 05/18/2020 11:28:00 PM EST [facility] THROMBOPLASTIN TIME PARTIAL PLASMA/WHOLE BLOOD <td>APTT</td><td>STAT</td><td>05/18/2020 5:24 PM EST</td><td></td><td> </td> 05/18/2020 10:24:00 PM EST [facility] CARDIAC CATHETERIZATION <td>CARDIAC CATHETERIZATION</td><td>Routine</td><td>05/18/2020 2:37 PM EST</td><td> ST elevation myocardial infarction (STEMI), unspecified artery</td><td> </td> 05/18/2020 07:37:[address] elevation myocardial infarction (STEMI), unspecifie d artery [facility] ST elevation myocardial infarction (STEM I), unspecified artery GLUC BLD GLUC MNTR DEV CLEARED FDA SPEC HOME USE <td>P OCT GLUCOSE</td><td>Routine</td><td>05/18/2020 12:00 PM EST</td><td></td><td> </td> 05/18/2020 05:00:00 PM EST [facility] TROPONIN QUANTITATIVE <td>TROPONIN I</td><td>Routi ne</td><td>05/18/2020 9:34 AM EST</td><td></td><td> </td> 05/18/2020 02:34:00 PM EST [facility] THROMBOPLASTIN TIME PARTIAL PLASMA/WHOLE BLOOD <td>APTT</td><td>STAT</td><td>05/18/2020 9:34 AM EST</td><td></td><td> </td> 05/18/2020 02:34:00 PM EST [facility] GLUC BLD GLUC MNTR DEV CLEARED FDA SPEC HOME USE <td>P OCT GLUCOSE</td><td>Routine</td><td>05/18/2020 9:34 AM EST</td><td></td><td> </td> 05/18/2020 02:34:00 PM EST [facility] ECG ROUTINE ECG W/LEAST 12 LDS TRCG ONLY W/O I&R <td>E CG 12- LEAD</td><td>Routine</td><td>05/18/2020 5:59 AM EST</td><td></td><td></td> 05/18/2020 10:59:27 AM EST [facility] TROPONIN QUANTITATIVE <td>TROPONIN I</td><td>Timed </td><td>05/18/2020 5:51 AM EST</td><td></td><td> </td> 05/18/2020 10:51:00 AM EST [facility] BLOOD COUNT COMPLETE AUTOMATED <td>CBC</td><td>Routine </td><td>05/18/2020 5:51 AM EST</td><td></td><td> </td> 05/18/2020 10:51:00 AM EST [facility] BASIC METABOLIC PANEL CALCIUM TOTAL <td>BASIC METABOLI C PANEL</td><td>Timed</td><td>05/18/2020 5:51 AM EST</td><td></td><td> </td> 05/18/2020 10:51:00 AM EST [facility] GLUC BLD GLUC MNTR DEV CLEARED FDA SPEC HOME USE <td>P OCT GLUCOSE</td><td>Routine</td><td>05/18/2020 2:29 AM EST</td><td></td><td> </td> 05/18/2020 07:29:00 AM EST [facility] NT PRO BNP <td>NT PRO BNP</td><td>Routi ne</td><td>05/18/2020 2:03 AM EST</td><td></td><td> </td> 05/18/2020 07:03:00 AM EST [facility] TROPONIN QUANTITATIVE <td>TROPONIN I</td><td>Timed </td><td>05/18/2020 2:03 AM EST</td><td></td><td> </td> 05/18/2020 07:03:00 AM EST [facility] THROMBOPLASTIN TIME PARTIAL PLASMA/WHOLE BLOOD <td>APTT</td><td>Routine</td><td>05/18/2020 2:03 AM EST</td><td></td><td> </td> 05/18/2020 07:03:00 AM EST [facility] PROTHROMBIN TIME <td>PROTIME-INR</td><td>Add- On</td><td>05/18/2020 2:03 AM EST</td><td></td><td> </td> 05/18/2020 07:03:00 AM EST [facility] BLOOD COUNT COMPLETE AUTO&AUTO DIFRNTL WBC COUNT <td>C BC AND DIFFERENTIAL</td><td>STAT</td><td>05/18/2020 2:03 AM EST</td><td></td><td> </td> 05/18/2020 07:03:00 AM EST [facility] THYROID STIMULATING HORMONE TSH <td>TSH</td><td>Routin e</td><td>05/18/2020 2:03 AM EST</td><td></td><td> </td> 05/18/2020 07:03:00 AM EST [facility] MAGNESIUM <td>MAGNESIUM</td><td>Routin e</td><td>05/18/2020 2:03 AM EST</td><td></td><td> </td> 05/18/2020 07:03:00 AM EST [facility] LIPID PANEL <td>LIPID PANEL</td><td>Rout ine</td><td>05/18/2020 2:03 AM EST</td><td></td><td> </td> 05/18/2020 07:03:00 AM EST [facility] COMPREHENSIVE METABOLIC PANEL <td>COMPREHENSIVE METABO LIC PANEL</td><td>STAT</td><td>05/18/2020 2:03 AM EST</td><td></td><td> </td> 05/18/2020 07:03:00 AM EST [facility] ECG ROUTINE ECG W/LEAST 12 LDS TRCG ONLY W/O I&R <td>E CG 12- LEAD</td><td>Routine</td><td>05/18/2020 1:15 AM EST</td><td></td><td></td> 05/18/2020 06:15:39 AM EST [facility] FINE NEEDLE ASPIRATION W/O IMAGING GUIDANCE 05/17/2020 12:00:00 AM EST eCW1 ([facility]) FINE NEEDLE ASPIRATION W/O IMAGING GUIDANCE 05/10/2020 12:00:00 AM EST eCW1 ([facility]) FINE NEEDLE ASPIRATION W/O IMAGING GUIDANCE 04/30/2020 12:00:00 AM EST eCW1 ([facility]) GLUC BLD GLUC MNTR DEV CLEARED FDA SPEC HOME USE <td>P OCT GLUCOSE</td><td>Routine</td><td>04/15/2020 12:34 PM EST</td><td></td><td> </td> 04/15/2020 05:34:00 PM EST [facility] GLUC BLD GLUC MNTR DEV CLEARED FDA SPEC HOME USE <td>P OCT GLUCOSE</td><td>Routine</td><td>04/15/2020 8:42 AM EST</td><td></td><td> </td> 04/15/2020 01:42:00 PM EST [facility] BLOOD COUNT COMPLETE AUTOMATED <td>CBC</td><td>Routine </td><td>04/15/2020 6:43 AM EST</td><td></td><td> </td> 04/15/2020 11:43:00 AM EST [facility] BASIC METABOLIC PANEL CALCIUM TOTAL <td>BASIC METABOLI C PANEL</td><td>Timed</td><td>04/15/2020 6:43 AM EST</td><td></td><td> </td> 04/15/2020 11:43:00 AM EST [facility] GLUC BLD GLUC MNTR DEV CLEARED FDA SPEC HOME USE <td>P OCT GLUCOSE</td><td>Routine</td><td>04/15/2020 6:17 AM EST</td><td></td><td> </td> 04/15/2020 11:17:00 AM EST [facility] GLUC BLD GLUC MNTR DEV CLEARED FDA SPEC HOME USE <td>P OCT GLUCOSE</td><td>Routine</td><td>04/14/2020 11:33 PM EST</td><td></td><td> </td> 04/15/2020 04:33:00 AM EST [facility] GLUC BLD GLUC MNTR DEV CLEARED FDA SPEC HOME USE <td>P OCT GLUCOSE</td><td>Routine</td><td>04/14/2020 8:27 PM EST</td><td></td><td> </td> 04/15/2020 01:27:00 AM EST [facility] GLUC BLD GLUC MNTR DEV CLEARED FDA SPEC HOME USE <td>P OCT GLUCOSE</td><td>Routine</td><td>04/14/2020 7:04 PM EST</td><td></td><td> </td> 04/15/2020 12:04:00 AM EST [facility] GLUC BLD GLUC MNTR DEV CLEARED FDA SPEC HOME USE <td>P OCT GLUCOSE</td><td>Routine</td><td>04/14/2020 12:46 PM EST</td><td></td><td> </td> 04/14/2020 05:46:00 PM EST [facility] GLUC BLD GLUC MNTR DEV CLEARED FDA SPEC HOME USE <td>P OCT GLUCOSE</td><td>Routine</td><td>04/14/2020 10:32 AM EST</td><td></td><td> </td> 04/14/2020 03:32:00 PM EST [facility] GLUC BLD GLUC MNTR DEV CLEARED FDA SPEC HOME USE <td>P OCT GLUCOSE</td><td>Routine</td><td>04/14/2020 10:04 AM EST</td><td></td><td> </td> 04/14/2020 03:04:00 PM EST [facility] GLUC BLD GLUC MNTR DEV CLEARED FDA SPEC HOME USE <td>P OCT GLUCOSE</td><td>Routine</td><td>04/14/2020 9:39 AM EST</td><td></td><td> </td> 04/14/2020 02:39:00 PM EST [facility] GLUC BLD GLUC MNTR DEV CLEARED FDA SPEC HOME USE <td>P OCT GLUCOSE</td><td>Routine</td><td>04/14/2020 8:42 AM EST</td><td></td><td> </td> 04/14/2020 01:42:00 PM EST [facility] BLOOD COUNT COMPLETE AUTOMATED <td>CBC</td><td>Routine </td><td>04/14/2020 6:46 AM EST</td><td></td><td> </td> 04/14/2020 11:46:00 AM EST [facility] BASIC METABOLIC PANEL CALCIUM TOTAL <td>BASIC METABOLI C PANEL</td><td>Timed</td><td>04/14/2020 6:46 AM EST</td><td></td><td> </td> 04/14/2020 11:46:00 AM EST [facility] GLUC BLD GLUC MNTR DEV CLEARED FDA SPEC HOME USE <td>P OCT GLUCOSE</td><td>Routine</td><td>04/13/2020 6:25 PM EST</td><td></td><td> </td> 04/13/2020 11:25:00 PM EST [facility] GLUC BLD GLUC MNTR DEV CLEARED FDA SPEC HOME USE <td>P OCT GLUCOSE</td><td>Routine</td><td>04/13/2020 1:04 PM EST</td><td></td><td> </td> 04/13/2020 06:04:00 PM EST [facility] GLUC BLD GLUC MNTR DEV CLEARED FDA SPEC HOME USE <td>P OCT GLUCOSE</td><td>Routine</td><td>04/13/2020 9:04 AM EST</td><td></td><td> </td> 04/13/2020 02:04:00 PM EST [facility] BLOOD COUNT COMPLETE AUTOMATED <td>CBC</td><td>Routine </td><td>04/13/2020 8:50 AM EST</td><td></td><td> </td> 04/13/2020 01:50:00 PM EST [facility] DRUG SCREEN QUALITATIVE VANCOMYCIN <td>VANCOMYCIN, TROUGH</td><td>Routine</td><td>04/13/2020 8:50 AM EST</td><td></td><td> </td> 04/13/2020 01:50:00 PM EST [facility] BASIC METABOLIC PANEL CALCIUM TOTAL <td>BASIC METABOLI C PANEL</td><td>Routine</td><td>04/13/2020 8:50 AM EST</td><td></td><td> </td> 04/13/2020 01:50:00 PM EST [facility] GLUC BLD GLUC MNTR DEV CLEARED FDA SPEC HOME USE <td>P OCT GLUCOSE</td><td>Routine</td><td>04/12/2020 9:16 PM EST</td><td></td><td> </td> 04/13/2020 02:16:00 AM EST [facility] GLUC BLD GLUC MNTR DEV CLEARED FDA SPEC HOME USE <td>P OCT GLUCOSE</td><td>Routine</td><td>04/12/2020 8:11 PM EST</td><td></td><td> </td> 04/13/2020 01:11:00 AM EST [facility] GLUC BLD GLUC MNTR DEV CLEARED FDA SPEC HOME USE <td>P OCT GLUCOSE</td><td>Routine</td><td>04/12/2020 6:16 PM EST</td><td></td><td> </td> 04/12/2020 11:16:00 PM EST [facility] GLUC BLD GLUC MNTR DEV CLEARED FDA SPEC HOME USE <td>P OCT GLUCOSE</td><td>Routine</td><td>04/12/2020 2:39 PM EST</td><td></td><td> </td> 04/12/2020 07:39:00 PM EST [facility] GLUC BLD GLUC MNTR DEV CLEARED FDA SPEC HOME USE <td>P OCT GLUCOSE</td><td>Routine</td><td>04/12/2020 2:12 PM EST</td><td></td><td> </td> 04/12/2020 07:12:00 PM EST [facility] GLUC BLD GLUC MNTR DEV CLEARED FDA SPEC HOME USE <td>P OCT GLUCOSE</td><td>Routine</td><td>04/12/2020 1:52 PM EST</td><td></td><td> </td> 04/12/2020 06:52:00 PM EST [facility] GLUC BLD GLUC MNTR DEV CLEARED FDA SPEC HOME USE <td>P OCT GLUCOSE</td><td>Routine</td><td>04/12/2020 1:38 PM EST</td><td></td><td> </td> 04/12/2020 06:38:00 PM EST [facility] GLUC BLD GLUC MNTR DEV CLEARED FDA SPEC HOME USE <td>P OCT GLUCOSE</td><td>Routine</td><td>04/12/2020 8:58 AM EST</td><td></td><td> </td> 04/12/2020 01:58:00 PM EST [facility] BLOOD COUNT COMPLETE AUTOMATED <td>CBC</td><td>Routine </td><td>04/12/2020 6:45 AM EST</td><td></td><td> </td> 04/12/2020 11:45:00 AM EST [facility] BASIC METABOLIC PANEL CALCIUM TOTAL <td>BASIC METABOLI C PANEL</td><td>Routine</td><td>04/12/2020 6:45 AM EST</td><td></td><td> </td> 04/12/2020 11:45:00 AM EST [facility] GLUC BLD GLUC MNTR DEV CLEARED FDA SPEC HOME USE <td>P OCT GLUCOSE</td><td>Routine</td><td>04/11/2020 7:35 PM EST</td><td></td><td> </td> 04/12/2020 12:35:00 AM EST [facility] GLUC BLD GLUC MNTR DEV CLEARED FDA SPEC HOME USE <td>P OCT GLUCOSE</td><td>Routine</td><td>04/11/2020 6:18 PM EST</td><td></td><td> </td> 04/11/2020 11:18:00 PM EST [facility] GLUC BLD GLUC MNTR DEV CLEARED FDA SPEC HOME USE <td>P OCT GLUCOSE</td><td>Routine</td><td>04/11/2020 12:27 PM EST</td><td></td><td> </td> 04/11/2020 05:27:00 PM EST [facility] GLUC BLD GLUC MNTR DEV CLEARED FDA SPEC HOME USE <td>P OCT GLUCOSE</td><td>Routine</td><td>04/11/2020 11:52 AM EST</td><td></td><td> </td> 04/11/2020 04:52:00 PM EST [facility] GLUC BLD GLUC MNTR DEV CLEARED FDA SPEC HOME USE <td>P OCT GLUCOSE</td><td>Routine</td><td>04/11/2020 11:38 AM EST</td><td></td><td> </td> 04/11/2020 04:38:00 PM EST [facility] GLUC BLD GLUC MNTR DEV CLEARED FDA SPEC HOME USE <td>P OCT GLUCOSE</td><td>Routine</td><td>04/11/2020 11:23 AM EST</td><td></td><td> </td> 04/11/2020 04:23:00 PM EST [facility] CTA ABDL AORTA&BI ILIOFEM W/CONTRAST&POSTPROCESS <td>C T ANGIOGRAM ABDOMINAL AORTA AND BILATERAL RUNOFF</td><td>Routine</td><td>04/11/2020 9:48 AM EST</td><td></td><td> </td> 04/11/2020 02:48:50 PM EST [facility] BLOOD COUNT COMPLETE AUTOMATED <td>CBC</td><td>Routine </td><td>04/11/2020 8:28 AM EST</td><td></td><td> </td> 04/11/2020 01:28:00 PM EST [facility] DRUG SCREEN QUALITATIVE VANCOMYCIN <td>VANCOMYCIN, RANDOM</td><td>STAT</td><td>04/11/2020 8:28 AM EST</td><td></td><td> </td> 04/11/2020 01:28:00 PM EST [facility] BASIC METABOLIC PANEL CALCIUM TOTAL <td>BASIC METABOLI C PANEL</td><td>Routine</td><td>04/11/2020 8:28 AM EST</td><td></td><td> </td> 04/11/2020 01:28:00 PM EST [facility] GLUC BLD GLUC MNTR DEV CLEARED FDA SPEC HOME USE <td>P OCT GLUCOSE</td><td>Routine</td><td>04/11/2020 8:09 AM EST</td><td></td><td> </td> 04/11/2020 01:09:00 PM EST [facility] GLUC BLD GLUC MNTR DEV CLEARED FDA SPEC HOME USE <td>P OCT GLUCOSE</td><td>Routine</td><td>04/11/2020 5:21 AM EST</td><td></td><td> </td> 04/11/2020 10:21:00 AM EST [facility] ECG ROUTINE ECG W/LEAST 12 LDS TRCG ONLY W/O I&R <td>E CG 12- LEAD</td><td>Routine</td><td>04/11/2020 4:53 AM EST</td><td></td><td></td> 04/11/2020 09:53:27 AM EST [facility] GLUC BLD GLUC MNTR DEV CLEARED FDA SPEC HOME USE <td>P OCT GLUCOSE</td><td>Routine</td><td>04/11/2020 1:07 AM EST</td><td></td><td> </td> 04/11/2020 06:07:00 AM EST [facility] IADNA S AUREUS METHICILLIN RESIST AMP PROBE TQ <td>MRS A SCREEN BY PCR</td><td>Routine</td><td>04/11/2020 12:50 AM EST</td><td></td><td> </td> 04/11/2020 05:50:00 AM EST [facility] CUL BACT XCPT URINE BLOOD/STOOL AEROBIC ISOL <td>WOUND CULTURE</td><td>Routine</td><td>04/11/2020 12:50 AM EST</td><td></td><td> </td> 04/11/2020 05:50:00 AM EST [facility] HEMOGLOBIN GLYCOSYLATED A1C <td>HEMOGLOBIN A1C</td><td>Routine</td><td>04/11/2020 12:47 AM EST</td><td></td><td> </td> 04/11/2020 05:47:00 AM EST [facility] BLOOD COUNT COMPLETE AUTOMATED <td>CBC</td><td>Routine </td><td>04/11/2020 12:41 AM EST</td><td></td><td> </td> 04/11/2020 05:41:00 AM EST [facility] COMPREHENSIVE METABOLIC PANEL <td>COMPREHENSIVE METABO LIC PANEL</td><td>Routine</td><td>04/11/2020 12:41 AM EST</td><td></td><td> </td> 04/11/2020 05:41:00 AM EST [facility] GLUC BLD GLUC MNTR DEV CLEARED FDA SPEC HOME USE <td>P OCT GLUCOSE</td><td>Routine</td><td>04/11/2020 12:29 AM EST</td><td></td><td> </td> 04/11/2020 05:29:00 AM EST [facility] FINE NEEDLE ASPIRATION W/O IMAGING GUIDANCE 04/05/2020 12:00:00 AM EST [email or web address] ([facility]) FINE NEEDLE ASPIRATION W/O IMAGING GUIDANCE 03/21/2020 12:00:00 AM EST [email or web address] ([facility]) DUP-SCAN LXTR ART/ARTL BPGS COMPL BI STUDY 03/21/2020 12:00:00 AM EST [facility] ([facility]) DEBRIDEMENT NAIL ANY METHOD /> 03/05/2020 12:00:00 AM EST [facility] ([facility] FINE NEEDLE ASPIRATION W/O IMAGING GUIDANCE 02/29/2020 12:00:00 AM EST [email or web address] ([facility]) GLUC BLD GLUC MNTR DEV CLEARED FDA SPEC HOME USE <td>P OCT GLUCOSE</td><td>Routine</td><td>02/20/2020 5:06 PM EST</td><td></td><td> </td> 02/20/2020 10:06:00 PM EST [facility] GLUC BLD GLUC MNTR DEV CLEARED FDA SPEC HOME USE <td>P OCT GLUCOSE</td><td>Routine</td><td>02/20/2020 11:28 AM EST</td><td></td><td> </td> 02/20/2020 04:28:00 PM EST [facility] GLUC BLD GLUC MNTR DEV CLEARED FDA SPEC HOME USE <td>P OCT GLUCOSE</td><td>Routine</td><td>02/20/2020 10:36 AM EST</td><td></td><td> </td> 02/20/2020 03:36:00 PM EST [facility] GLUC BLD GLUC MNTR DEV CLEARED FDA SPEC HOME USE <td>P OCT GLUCOSE</td><td>Routine</td><td>02/20/2020 8:25 AM EST</td><td></td><td> </td> 02/20/2020 01:25:00 PM EST [facility] BLOOD COUNT COMPLETE AUTOMATED <td>CBC</td><td>Timed</ td><td>02/20/2020 3:36 AM EST</td><td></td><td> </td> 02/20/2020 08:36:00 AM EST [facility] 2019 NCOV AMPLIFIED <td>2019 NCOV AMPLIFIED</td> <td>Routine</td><td>02/20/2020 12:00 AM EST</td><td></td><td> </td> 02/20/2020 05:00:00 AM EST [facility] GLUC BLD GLUC MNTR DEV CLEARED FDA SPEC HOME USE <td>P OCT GLUCOSE</td><td>Routine</td><td>02/19/2020 6:07 PM EST</td><td></td><td> </td> 02/19/2020 11:07:00 PM EST [facility] GLUC BLD GLUC MNTR DEV CLEARED FDA SPEC HOME USE <td>P OCT GLUCOSE</td><td>Routine</td><td>02/19/2020 12:04 PM EST</td><td></td><td> </td> 02/19/2020 05:04:00 PM EST [facility] GLUC BLD GLUC MNTR DEV CLEARED FDA SPEC HOME USE <td>P OCT GLUCOSE</td><td>Routine</td><td>02/19/2020 7:41 AM EST</td><td></td><td> </td> 02/19/2020 12:41:00 PM EST [facility] BASIC METABOLIC PANEL CALCIUM TOTAL <td>BASIC METABOLI C PANEL</td><td>Routine</td><td>02/19/2020 6:36 AM EST</td><td></td><td> </td> 02/19/2020 11:36:00 AM EST [facility] GLUC BLD GLUC MNTR DEV CLEARED FDA SPEC HOME USE <td>P OCT GLUCOSE</td><td>Routine</td><td>02/18/2020 7:30 PM EST</td><td></td><td> </td> 02/19/2020 12:30:00 AM EST [facility] BLOOD COUNT COMPLETE AUTOMATED <td>CBC</td><td>Routine </td><td>02/18/2020 6:23 PM EST</td><td></td><td> </td> 02/18/2020 11:23:00 PM EST [facility] HEMOGLOBIN GLYCOSYLATED A1C <td>HEMOGLOBIN A1C</td><td>Routine</td><td>02/18/2020 6:23 PM EST</td><td></td><td> </td> 02/18/2020 11:23:00 PM EST [facility] GLUC BLD GLUC MNTR DEV CLEARED FDA SPEC HOME USE <td>P OCT GLUCOSE</td><td>Routine</td><td>02/18/2020 5:48 PM EST</td><td></td><td> </td> 02/18/2020 10:48:00 PM EST [facility] GLUC BLD GLUC MNTR DEV CLEARED FDA SPEC HOME USE <td>P OCT GLUCOSE</td><td>Routine</td><td>02/18/2020 5:16 PM EST</td><td></td><td> </td> 02/18/2020 10:16:00 PM EST [facility] GLUC BLD GLUC MNTR DEV CLEARED FDA SPEC HOME USE <td>P OCT GLUCOSE</td><td>Routine</td><td>02/18/2020 5:02 PM EST</td><td></td><td> </td> 02/18/2020 10:02:00 PM EST [facility] GLUC BLD GLUC MNTR DEV CLEARED FDA SPEC HOME USE <td>P OCT GLUCOSE</td><td>Routine</td><td>02/18/2020 4:53 PM EST</td><td></td><td> </td> 02/18/2020 09:53:00 PM EST [facility] GLUC BLD GLUC MNTR DEV CLEARED FDA SPEC HOME USE <td>P OCT GLUCOSE</td><td>Routine</td><td>02/16/2020 7:23 AM EDT</td><td></td><td> </td> 02/16/2020 11:23:00 AM EDT [facility] GLUC BLD GLUC MNTR DEV CLEARED FDA SPEC HOME USE <td>P OCT GLUCOSE</td><td>Routine</td><td>02/15/2020 5:11 PM EDT</td><td></td><td> </td> 02/15/2020 09:11:00 PM EDT [facility] GLUC BLD GLUC MNTR DEV CLEARED FDA SPEC HOME USE <td>P OCT GLUCOSE</td><td>Routine</td><td>02/15/2020 12:23 PM EDT</td><td></td><td> </td> 02/15/2020 04:23:00 PM EDT [facility] GLUC BLD GLUC MNTR DEV CLEARED FDA SPEC HOME USE <td>P OCT GLUCOSE</td><td>Routine</td><td>02/15/2020 8:47 AM EDT</td><td></td><td> </td> 02/15/2020 12:47:00 PM EDT [facility] BLOOD COUNT COMPLETE AUTOMATED <td>CBC</td><td>Timed</ td><td>02/15/2020 5:24 AM EDT</td><td></td><td> </td> 02/15/2020 09:24:00 AM EDT [facility] BASIC METABOLIC PANEL CALCIUM TOTAL <td>BASIC METABOLI C PANEL</td><td>Timed</td><td>02/15/2020 5:24 AM EDT</td><td></td><td> </td> 02/15/2020 09:24:00 AM EDT [facility] GLUC BLD GLUC MNTR DEV CLEARED FDA SPEC HOME USE <td>P OCT GLUCOSE</td><td>Routine</td><td>02/14/2020 6:11 PM EDT</td><td></td><td> </td> 02/14/2020 10:11:00 PM EDT [facility] GLUC BLD GLUC MNTR DEV CLEARED FDA SPEC HOME USE <td>P OCT GLUCOSE</td><td>Routine</td><td>02/14/2020 1:01 PM EDT</td><td></td><td> </td> 02/14/2020 05:01:00 PM EDT [facility] GLUC BLD GLUC MNTR DEV CLEARED FDA SPEC HOME USE <td>P OCT GLUCOSE</td><td>Routine</td><td>02/14/2020 9:01 AM EDT</td><td></td><td> </td> 02/14/2020 01:01:00 PM EDT [facility] BLOOD COUNT COMPLETE AUTOMATED <td>CBC</td><td>Timed</ td><td>02/14/2020 4:58 AM EDT</td><td></td><td> </td> 02/14/2020 08:58:00 AM EDT [facility] BASIC METABOLIC PANEL CALCIUM TOTAL <td>BASIC METABOLI C PANEL</td><td>Timed</td><td>02/14/2020 4:58 AM EDT</td><td></td><td> </td> 02/14/2020 08:58:00 AM EDT [facility] GLUC BLD GLUC MNTR DEV CLEARED FDA SPEC HOME USE <td>P OCT GLUCOSE</td><td>Routine</td><td>02/13/2020 5:52 PM EDT</td><td></td><td> </td> 02/13/2020 09:52:00 PM EDT [facility] GLUC BLD GLUC MNTR DEV CLEARED FDA SPEC HOME USE <td>P OCT GLUCOSE</td><td>Routine</td><td>02/13/2020 12:20 PM EDT</td><td></td><td> </td> 02/13/2020 04:20:00 PM EDT [facility] GLUC BLD GLUC MNTR DEV CLEARED FDA SPEC HOME USE <td>P OCT GLUCOSE</td><td>Routine</td><td>02/13/2020 9:27 AM EDT</td><td></td><td> </td> 02/13/2020 01:27:00 PM EDT [facility] GLUC BLD GLUC MNTR DEV CLEARED FDA SPEC HOME USE <td>P OCT GLUCOSE</td><td>Routine</td><td>02/13/2020 8:48 AM EDT</td><td></td><td> </td> 02/13/2020 12:48:00 PM EDT [facility] BLOOD COUNT COMPLETE AUTOMATED <td>CBC</td><td>Timed</ td><td>02/13/2020 5:15 AM EDT</td><td></td><td> </td> 02/13/2020 09:15:00 AM EDT [facility] BASIC METABOLIC PANEL CALCIUM TOTAL <td>BASIC METABOLI C PANEL</td><td>Timed</td><td>02/13/2020 5:15 AM EDT</td><td></td><td> </td> 02/13/2020 09:15:00 AM EDT [facility] GLUC BLD GLUC MNTR DEV CLEARED FDA SPEC HOME USE <td>P OCT GLUCOSE</td><td>Routine</td><td>02/12/2020 7:55 PM EDT</td><td></td><td> </td> 02/12/2020 11:55:00 PM EDT [facility] GLUC BLD GLUC MNTR DEV CLEARED FDA SPEC HOME USE <td>P OCT GLUCOSE</td><td>Routine</td><td>02/12/2020 5:46 PM EDT</td><td></td><td> </td> 02/12/2020 09:46:00 PM EDT [facility] BYP OTH/THN VEIN FEMORAL-POPLITEAL <td>CREATION, BYPAS S, ARTERIAL, FEMORAL TO POPLITEAL, USING GRAFT</td><td></td><td>02/12/2020 1:48 PM EDT</td><td> Ischemic leg</td><td></td> 02/12/2020 05:48:00 PM EDT - 02/12/2020 10:03:00 PM EDT Ischemic leg [facility] Ischemic leg DEBRIDEMENT SUBCUTANEOUS TISSUE 20 SQ CM/< <td>DEBRIDE MENT, WOUND</td><td></td><td>02/12/2020 1:48 PM EDT</td><td> Ischemic leg</td><td></td> 02/12/2020 05:48:00 PM EDT - 02/12/2020 10:03:00 PM EDT Ischemic leg [facility] Ischemic leg GLUC BLD GLUC MNTR DEV CLEARED FDA SPEC HOME USE <td>P OCT GLUCOSE</td><td>Routine</td><td>02/12/2020 12:48 PM EDT</td><td></td><td> </td> 02/12/2020 04:48:00 PM EDT [facility] GLUC BLD GLUC MNTR DEV CLEARED FDA SPEC HOME USE <td>P OCT GLUCOSE</td><td>Routine</td><td>02/12/2020 12:07 PM EDT</td><td></td><td> </td> 02/12/2020 04:07:00 PM EDT [facility] GLUC BLD GLUC MNTR DEV CLEARED FDA SPEC HOME USE <td>P OCT GLUCOSE</td><td>Routine</td><td>02/12/2020 9:12 AM EDT</td><td></td><td> </td> 02/12/2020 01:12:00 PM EDT [facility] BLOOD COUNT COMPLETE AUTOMATED <td>CBC</td><td>Timed</ td><td>02/12/2020 3:45 AM EDT</td><td></td><td> </td> 02/12/2020 07:45:00 AM EDT [facility] BASIC METABOLIC PANEL CALCIUM TOTAL <td>BASIC METABOLI C PANEL</td><td>Timed</td><td>02/12/2020 3:45 AM EDT</td><td></td><td> </td> 02/12/2020 07:45:00 AM EDT [facility] 2019 NCOV AMPLIFIED <td>2019 NCOV AMPLIFIED</td> <td>STAT</td><td>02/12/2020 12:00 AM EDT</td><td></td><td> </td> 02/12/2020 04:00:00 AM EDT [facility] GLUC BLD GLUC MNTR DEV CLEARED FDA SPEC HOME USE <td>P OCT GLUCOSE</td><td>Routine</td><td>02/11/2020 11:55 PM EDT</td><td></td><td> </td> 02/12/2020 03:55:00 AM EDT [facility] DEBRIDEMENT SUBCUTANEOUS TISSUE 20 SQ CM/< 02/12/2020 12:00:00 AM EDT [facility] ([facility]) DEBRIDEMENT BONE MUSCLE &/FASCIA 20 SQ CM/< 02/12/2020 12:00:00 AM EDT [facility] ([facility]) Bypass Graft W/Vein Femoral-Popliteal 02/12/2020 12:00 :00 AM EDT [facility] ([facility]) Bypass Graft Other Than Vein Femoral-Popliteal 020 12:00:00 AM EDT [facility] ([facility]) GLUC BLD GLUC MNTR DEV CLEARED FDA SPEC HOME USE <td>P OCT GLUCOSE</td><td>Routine</td><td>02/11/2020 4:52 PM EDT</td><td></td><td> </td> 02/11/2020 08:52:00 PM EDT [facility] GLUC BLD GLUC MNTR DEV CLEARED FDA SPEC HOME USE <td>P OCT GLUCOSE</td><td>Routine</td><td>02/11/2020 2:11 PM EDT</td><td></td><td> </td> 02/11/2020 06:11:00 PM EDT [facility] GLUC BLD GLUC MNTR DEV CLEARED FDA SPEC HOME USE <td>P OCT GLUCOSE</td><td>Routine</td><td>02/11/2020 8:49 AM EDT</td><td></td><td> </td> 02/11/2020 12:49:00 PM EDT [facility] BLOOD COUNT COMPLETE AUTOMATED <td>CBC</td><td>Timed</ td><td>02/11/2020 5:30 AM EDT</td><td></td><td> </td> 02/11/2020 09:30:00 AM EDT [facility] MAGNESIUM <td>MAGNESIUM</td><td>Timed< /td><td>02/11/2020 5:30 AM EDT</td><td></td><td> </td> 02/11/2020 09:30:00 AM EDT [facility] DRUG SCREEN QUALITATIVE VANCOMYCIN <td>VANCOMYCIN, TROUGH</td><td>STAT</td><td>02/11/2020 5:30 AM EDT</td><td></td><td> </td> 02/11/2020 09:30:00 AM EDT [facility] BASIC METABOLIC PANEL CALCIUM TOTAL <td>BASIC METABOLI C PANEL</td><td>Timed</td><td>02/11/2020 5:30 AM EDT</td><td></td><td> </td> 02/11/2020 09:30:00 AM EDT [facility] GLUC BLD GLUC MNTR DEV CLEARED FDA SPEC HOME USE <td>P OCT GLUCOSE</td><td>Routine</td><td>02/10/2020 5:13 PM EDT</td><td></td><td> </td> 02/10/2020 09:13:00 PM EDT [facility] GLUC BLD GLUC MNTR DEV CLEARED FDA SPEC HOME USE <td>P OCT GLUCOSE</td><td>Routine</td><td>02/10/2020 3:21 PM EDT</td><td></td><td> </td> 02/10/2020 07:21:00 PM EDT [facility] GLUC BLD GLUC MNTR DEV CLEARED FDA SPEC HOME USE <td>P OCT GLUCOSE</td><td>Routine</td><td>02/10/2020 1:05 PM EDT</td><td></td><td> </td> 02/10/2020 05:05:00 PM EDT [facility] GLUC BLD GLUC MNTR DEV CLEARED FDA SPEC HOME USE <td>P OCT GLUCOSE</td><td>Routine</td><td>02/10/2020 9:33 AM EDT</td><td></td><td> </td> 02/10/2020 01:33:00 PM EDT [facility] BLOOD COUNT COMPLETE AUTOMATED <td>CBC</td><td>Timed</ td><td>02/10/2020 3:40 AM EDT</td><td></td><td> </td> 02/10/2020 07:40:00 AM EDT [facility] BLOOD TYPING ABO <td>TYPE AND SCREEN</td><td> Routine</td><td>02/10/2020 3:40 AM EDT</td><td></td><td> </td> 02/10/2020 07:40:00 AM EDT [facility] MAGNESIUM <td>MAGNESIUM</td><td>Timed< /td><td>02/10/2020 3:40 AM EDT</td><td></td><td> </td> 02/10/2020 07:40:00 AM EDT [facility] BASIC METABOLIC PANEL CALCIUM TOTAL <td>BASIC METABOLI C PANEL</td><td>Timed</td><td>02/10/2020 3:40 AM EDT</td><td></td><td> </td> 02/10/2020 07:40:00 AM EDT [facility] GLUC BLD GLUC MNTR DEV CLEARED FDA SPEC HOME USE <td>P OCT GLUCOSE</td><td>Routine</td><td>02/09/2020 6:20 PM EDT</td><td></td><td> </td> 02/09/2020 10:20:00 PM EDT [facility] GLUC BLD GLUC MNTR DEV CLEARED FDA SPEC HOME USE <td>P OCT GLUCOSE</td><td>Routine</td><td>02/09/2020 10:18 AM EDT</td><td></td><td> </td> 02/09/2020 02:18:00 PM EDT [facility] INTRODUCTION CATHETER AORTA <td>IR IS ARTERIOGRAM TANYA C SELECTIVE</td><td>Routine</td><td>02/09/2020 10:05 AM EDT</td><td></td><td> </td> 02/09/2020 02:05:29 PM EDT [facility] DRUG SCREEN QUALITATIVE VANCOMYCIN <td>VANCOMYCIN, TROUGH</td><td>STAT</td><td>02/09/2020 8:30 AM EDT</td><td></td><td> </td> 02/09/2020 12:30:00 PM EDT [facility] BLOOD COUNT COMPLETE AUTOMATED <td>CBC</td><td>Timed</ td><td>02/09/2020 3:00 AM EDT</td><td></td><td> </td> 02/09/2020 07:00:00 AM EDT [facility] MAGNESIUM <td>MAGNESIUM</td><td>Timed< /td><td>02/09/2020 3:00 AM EDT</td><td></td><td> </td> 02/09/2020 07:00:00 AM EDT [facility] BASIC METABOLIC PANEL CALCIUM TOTAL <td>BASIC METABOLI C PANEL</td><td>Timed</td><td>02/09/2020 3:00 AM EDT</td><td></td><td> </td> 02/09/2020 07:00:00 AM EDT [facility] Catheter Introduction Aorta 02/09/2020 12:00:00 AM EDT [facility] ([facility]) Iliac Angioplasty-Initial 02/09/2020 12:00:00 AM EDT [facility] ([facility]) Iliac Angioplasty-Each Additio 02/09/2020 12:00:00 AM EDT [facility] ([facility]) Moderate Sedation Services; Same Phys Intl 15 Mins; PT >= 5 Years 02/09/2020 12:00:00 AM EDT [facility] ([facility]) GLUC BLD GLUC MNTR DEV CLEARED FDA SPEC HOME USE <td>P OCT GLUCOSE</td><td>Routine</td><td>02/08/2020 5:50 PM EDT</td><td></td><td> </td> 02/08/2020 09:50:00 PM EDT [facility] MRI LOWER EXTREM OTH/THN JT W/O CONTR MATRL <td>MRI LO W EXT NO JNT WO CONTRAST LEFT</td><td>Routine</td><td>02/08/2020 3:51 PM EDT</td><td></td><td> </td> 02/08/2020 07:51:36 PM EDT [facility] GLUC BLD GLUC MNTR DEV CLEARED FDA SPEC HOME USE <td>P OCT GLUCOSE</td><td>Routine</td><td>02/08/2020 2:49 PM EDT</td><td></td><td> </td> 02/08/2020 06:49:00 PM EDT [facility] GLUC BLD GLUC MNTR DEV CLEARED FDA SPEC HOME USE <td>P OCT GLUCOSE</td><td>Routine</td><td>02/08/2020 12:59 PM EDT</td><td></td><td> </td> 02/08/2020 04:59:00 PM EDT [facility] XR CHEST PORTABLE <td>XR CHEST PORTABLE</td><t d>STAT</td><td>02/08/2020 12:19 PM EDT</td><td></td><td> </td> 02/08/2020 04:19:34 PM EDT [facility] ECG ROUTINE ECG W/LEAST 12 LDS W/I&R <td>ECG 12- LEAD</td><td>Routine</td><td>02/08/2020 12:15 PM EDT</td><td></td><td></td> 02/08/2020 04:15:50 PM EDT [facility] GLUC BLD GLUC MNTR DEV CLEARED FDA SPEC HOME USE <td>P OCT GLUCOSE</td><td>Routine</td><td>02/08/2020 12:06 PM EDT</td><td></td><td> </td> 02/08/2020 04:06:00 PM EDT [facility] REMOVAL IMPLANT DEEP <td>REMOVAL, STERNAL WIRE, W ITH REWIRING IF INDICATED</td><td></td><td>02/08/2020 10:31 AM EDT</td><td> Protruding sternal wires, initial encounter</td><td></td> 02/08/2020 02:31:00 PM EDT - 02/08/2020 04:18:00 PM EDT Protruding sternal wires, initial encounter [facility] Protruding sternal wires, initial encoun ter GLUC BLD GLUC MNTR DEV CLEARED FDA SPEC HOME USE <td>P OCT GLUCOSE</td><td>Routine</td><td>02/08/2020 8:17 AM EDT</td><td></td><td> </td> 02/08/2020 12:17:00 PM EDT [facility] SEDIMENTATION RATE RBC AUTOMATED <td>SEDIMENTATION RATE</td><td>Routine</td><td>02/08/2020 5:30 AM EDT</td><td></td><td> </td> 02/08/2020 09:30:00 AM EDT [facility] C-REACTIVE PROTEIN <td>C-REACTIVE PROTEIN</td>< td>Routine</td><td>02/08/2020 5:30 AM EDT</td><td></td><td> </td> 02/08/2020 09:30:00 AM EDT [facility] DRUG SCREEN QUALITATIVE VANCOMYCIN <td>VANCOMYCIN, TROUGH</td><td>Routine</td><td>02/08/2020 5:30 AM EDT</td><td></td><td> </td> 02/08/2020 09:30:00 AM EDT [facility] BASIC METABOLIC PANEL CALCIUM TOTAL <td>BASIC METABOLI C PANEL</td><td>Timed</td><td>02/08/2020 5:30 AM EDT</td><td></td><td> </td> 02/08/2020 09:30:00 AM EDT [facility] ECG ROUTINE ECG W/LEAST 12 LDS [...] MNTR DEV CLEARED FDA SPEC HOME USE <td>P OCT GLUCOSE</td><td>Routine</td><td>02/07/2020 5:32 PM EDT</td><td></td><td> </td> 02/07/2020 09:32:00 PM EDT [facility] GLUC BLD GLUC MNTR DEV CLEARED FDA SPEC HOME USE <td>P OCT GLUCOSE</td><td>Routine</td><td>02/07/2020 11:59 AM EDT</td><td></td><td> </td> 02/07/2020 03:59:00 PM EDT [facility] THROMBOPLASTIN TIME PARTIAL PLASMA/WHOLE BLOOD <td>APTT</td><td>Routine</td><td>02/07/2020 10:36 AM EDT</td><td></td><td> </td> 02/07/2020 02:36:00 PM EDT [facility] PROTHROMBIN TIME <td>PROTIME-INR</td><td>Rout ine</td><td>02/07/2020 10:36 AM EDT</td><td></td><td> </td> 02/07/2020 02:36:00 PM EDT [facility] HEMOGLOBIN GLYCOSYLATED A1C <td>HEMOGLOBIN A1C</td><td>Routine</td><td>02/07/2020 10:35 AM EDT</td><td></td><td> </td> 02/07/2020 02:35:00 PM EDT [facility] CUL BACT XCPT URINE BLOOD/STOOL AEROBIC ISOL <td>WOUND CULTURE</td><td>Routine</td><td>02/07/2020 10:15 AM EDT</td><td></td><td> </td> 02/07/2020 02:15:00 PM EDT [facility] CUL BACT XCPT URINE BLOOD/STOOL AEROBIC ISOL <td>WOUND CULTURE</td><td>Routine</td><td>02/07/2020 10:15 AM EDT</td><td></td><td> </td> 02/07/2020 02:15:00 PM EDT [facility] CULTURE BACTERIAL ANY SOURCE ANAEROBIC ISO&ID <td>ANAE ROBIC CULTURE</td><td>Routine</td><td>02/07/2020 10:15 AM EDT</td><td></td><td> </td> 02/07/2020 02:15:00 PM EDT [facility] CULTURE BACTERIAL ANY SOURCE ANAEROBIC ISO&ID <td>ANAE ROBIC CULTURE</td><td>Routine</td><td>02/07/2020 10:15 AM EDT</td><td></td><td> </td> 02/07/2020 02:15:00 PM EDT [facility] GLUC BLD GLUC MNTR DEV CLEARED FDA SPEC HOME USE <td>P OCT GLUCOSE</td><td>Routine</td><td>02/07/2020 8:41 AM EDT</td><td></td><td> </td> 02/07/2020 12:41:00 PM EDT [facility] BLOOD COUNT COMPLETE AUTOMATED <td>CBC</td><td>Routine </td><td>02/07/2020 5:48 AM EDT</td><td></td><td> </td> 02/07/2020 09:48:00 AM EDT [facility] BASIC METABOLIC PANEL CALCIUM TOTAL <td>BASIC METABOLI C PANEL</td><td>Timed</td><td>02/07/2020 5:48 AM EDT</td><td></td><td> </td> 02/07/2020 09:48:00 AM EDT [facility] MRI LOWER EXTREM OTH/THN JT W/O CONTR MATRL <td>MRI LO W EXT NO JNT WO CONTRAST RIGHT</td><td>Routine</td><td>02/06/2020 8:59 PM EDT</td><td></td><td> </td> 02/07/2020 12:59:42 AM EDT [facility] MRI LOWER EXTREM OTH/THN JT W/O CONTR MATRL 02/07/2020 12:00:00 AM EDT [facility] ([facility]) GLUC BLD GLUC MNTR DEV CLEARED FDA SPEC HOME USE <td>P OCT GLUCOSE</td><td>Routine</td><td>02/06/2020 6:45 PM EDT</td><td></td><td> </td> 02/06/2020 10:45:00 PM EDT [facility] GLUC BLD GLUC MNTR DEV CLEARED FDA SPEC HOME USE <td>P OCT GLUCOSE</td><td>Routine</td><td>02/06/2020 12:20 PM EDT</td><td></td><td> </td> 02/06/2020 04:20:00 PM EDT [facility] GLUC BLD GLUC MNTR DEV CLEARED FDA SPEC HOME USE <td>P OCT GLUCOSE</td><td>Routine</td><td>02/06/2020 9:00 AM EDT</td><td></td><td> </td> 02/06/2020 01:00:00 PM EDT [facility] BLOOD COUNT COMPLETE AUTOMATED <td>CBC</td><td>Routine </td><td>02/06/2020 6:24 AM EDT</td><td></td><td> </td> 02/06/2020 10:24:00 AM EDT [facility] BASIC METABOLIC PANEL CALCIUM TOTAL <td>BASIC METABOLI C PANEL</td><td>Routine</td><td>02/06/2020 6:24 AM EDT</td><td></td><td> </td> 02/06/2020 10:24:00 AM EDT [facility] GLUC BLD GLUC MNTR DEV CLEARED FDA SPEC HOME USE <td>P OCT GLUCOSE</td><td>Routine</td><td>02/06/2020 12:10 AM EDT</td><td></td><td> </td> 02/06/2020 04:10:00 AM EDT [facility] POC ARTERIAL BLOOD GAS W LYTES <td>POC ARTERIAL BLOOD GAS W LYTES</td><td>Routine</td><td>02/05/2020 9:08 PM EDT</td><td></td><td> </td> 02/06/2020 01:08:00 AM EDT [facility] CREATION, BYPASS, ARTERIAL, FEMORAL TO POPLITEAL, USIN G GRAFT <td>CREATION, BYPASS, ARTERIAL, FEMORAL TO POPLITEAL, USING GRAFT</td><td></td><td>02/05/2020 7:36 PM EDT</td><td> claudication</td><td></td> 02/05/2020 11:36:00 PM EDT - 02/06/2020 04:24:00 AM EDT [facility] GLUC BLD GLUC MNTR DEV CLEARED FDA SPEC HOME USE <td>P OCT GLUCOSE</td><td>Routine</td><td>02/05/2020 6:58 PM EDT</td><td></td><td> </td> 02/05/2020 10:58:00 PM EDT [facility] GLUC BLD GLUC MNTR DEV CLEARED FDA SPEC HOME USE <td>P OCT GLUCOSE</td><td>Routine</td><td>02/05/2020 6:36 PM EDT</td><td></td><td> </td> 02/05/2020 10:36:00 PM EDT [facility] THROMBOPLASTIN TIME PARTIAL PLASMA/WHOLE BLOOD <td>APTT</td><td>STAT</td><td>02/05/2020 4:11 PM EDT</td><td></td><td> </td> 02/05/2020 08:11:00 PM EDT [facility] 2019 NCOV AMPLIFIED <td>2019 NCOV AMPLIFIED</td> <td>STAT</td><td>02/05/2020 2:45 PM EDT</td><td></td><td> </td> 02/05/2020 06:45:00 PM EDT [facility] GLUC BLD GLUC MNTR DEV CLEARED FDA SPEC HOME USE <td>P OCT GLUCOSE</td><td>Routine</td><td>02/05/2020 1:46 PM EDT</td><td></td><td> </td> 02/05/2020 05:46:00 PM EDT [facility] XR CHEST PORTABLE <td>XR CHEST PORTABLE</td><t d>Routine</td><td>02/05/2020 10:47 AM EDT</td><td></td><td> </td> 02/05/2020 02:47:59 PM EDT [facility] ECG ROUTINE ECG W/LEAST 12 LDS W/I&R <td>ECG 12- LEAD</td><td>Routine</td><td>02/05/2020 10:05 AM EDT</td><td></td><td></td> 02/05/2020 02:05:29 PM EDT [facility] LEVEL IV SURG PATHOLOGY GROSS&MICROSCOPIC EXAM <td>[facility] HISTOLOGY</td><td>Routine</td><td>02/05/2020 9:56 AM EDT</td><td></td><td> </td> 02/05/2020 01:56:00 PM EDT [facility] CTA ABDL AORTA&BI ILIOFEM W/CONTRAST&POSTPROCESS <td>C T ANGIOGRAM ABDOMINAL AORTA AND BILATERAL RUNOFF</td><td>STAT</td><td>02/05/2020 9:25 AM EDT</td><td></td><td> </td> 02/05/2020 01:25:39 PM EDT [facility] GLUC BLD GLUC MNTR DEV CLEARED FDA SPEC HOME USE <td>P OCT GLUCOSE</td><td>Routine</td><td>02/05/2020 8:41 AM EDT</td><td></td><td> </td> 02/05/2020 12:41:00 PM EDT [facility] CULTURE BACTERIAL BLOOD AEROBIC W/ID ISOLATES <td>BLOO D CULTURE</td><td>Routine</td><td>02/05/2020 6:09 AM EDT</td><td></td><td> </td> 02/05/2020 10:09:00 AM EDT [facility] CULTURE BACTERIAL BLOOD AEROBIC W/ID ISOLATES <td>BLOO D CULTURE</td><td>Routine</td><td>02/05/2020 6:09 AM EDT</td><td></td><td> </td> 02/05/2020 10:09:00 AM EDT [facility] THROMBOPLASTIN TIME PARTIAL PLASMA/WHOLE BLOOD <td>APTT</td><td>Routine</td><td>02/05/2020 6:09 AM EDT</td><td></td><td> </td> 02/05/2020 10:09:00 AM EDT [facility] PROTHROMBIN TIME <td>PROTIME-INR</td><td>Rout ine</td><td>02/05/2020 6:09 AM EDT</td><td></td><td> </td> 02/05/2020 10:09:00 AM EDT [facility] BLOOD COUNT COMPLETE AUTOMATED <td>CBC</td><td>Routine </td><td>02/05/2020 6:09 AM EDT</td><td></td><td> </td> 02/05/2020 10:09:00 AM EDT [facility] BLOOD TYPING ABO <td>TYPE AND SCREEN</td><td> Routine</td><td>02/05/2020 6:09 AM EDT</td><td></td><td> </td> 02/05/2020 10:09:00 AM EDT [facility] COMPREHENSIVE METABOLIC PANEL <td>COMPREHENSIVE METABO LIC PANEL</td><td>Routine</td><td>02/05/2020 6:09 AM EDT</td><td></td><td> </td> 02/05/2020 10:09:00 AM EDT [facility] Bypass Graft Other Than Vein Femoral-Popliteal 020 12:00:00 AM EDT [facility] ([facility]) Bypass Graft Other Than Vein Iliofemoral 02/05/2020 12 :00:00 AM EDT [facility] ([facility]) Radiologic Exam, Chest, Single View 02/05/2020 12:00:0 0 AM EDT [facility] ([facility]) Comp Tomogrp Angiog AB Aorta & Bilateral Iliofemoral LW Ext Runof 02/05/2020 12:00:00 AM EDT [facility] ([facility]) ECG ROUTINE ECG W/LEAST 12 LDS W/I&R 02/05/2020 12:00: 00 AM EDT [facility] ([facility]) FINE NEEDLE ASPIRATION W/O IMAGING GUIDANCE 02/02/2020 12:00:00 AM EDT eCW1 ([facility]) FINE NEEDLE ASPIRATION W/O IMAGING GUIDANCE 01/26/2020 12:00:00 AM EDT eCW1 ([facility]) FINE NEEDLE ASPIRATION W/O IMAGING GUIDANCE 01/17/2020 12:00:00 AM EDT eCW1 ([facility]) DEBRIDEMENT BONE MUSCLE &/FASCIA 20 SQ CM/< 12/31/2019 12:00:00 AM EDT [facility] ([facility] Results ID Date Data Source [id number] 11/10/2020 07:52:00 AM EDT [facility] Name Value Range Interpretation Code Description Data Mary rce(s) Supporting Document(s) SARS-CoV-2 (COVID 19) NEGATIVE - SARS-CoV-2 (COVID19) [facility] This lab was ordered by [facility] a nd reported by [facility]. ID Date Data Source [id number] 08/14/2020 12:32:57 PM EDT [facility] NT INFORMATIONPatient MRN Name Date of Age Gend*PT [id number] Tatianna Soto 1965 55 years F HOPPT Location Admission Date/Time Visit ID Attending ProviderCV08/13/20 0943 --- --- EPI ID CSN Admitting Provider [id number] Dain Sanford MD([id number]) [place] [address] OPERATIVE REPORT OPNAME: TATIANNA SOTO Magalis Lorenz#: [id number] #: CV- [id number] ADMISSION DATE: 08/13/2020OB: 1965 SEX: F PT TYPE: H VascACCT #: [id number] CARE PHYSICIAN: [facility] PH[facility]IAN: DAIN SANFORDDATE OF OPERATION: 08/13/2020REOPERATIVE DIAGNOSIS:Left lower extremity threatened femoral to popliteal bypass graft.POSTPROCEDURE DIAGNOSIS:Left lower extremity threatened femoral to popliteal bypass graft.PROCEDURE PERFORMED:Aortogram, bilateral lower extremity angiogram, left femoral to below-kneepopliteal artery bypass graft, angioplasty and Mynx closure of the rightcommon femoral artery.DRAINS:None.IMPLANTS:None.SPECIMEN:None.BLOOD LOSS:Minimal.ANESTHESIA:Moderate sedation with a total sedation time of 40 minut .FINDINGS:High-grade, greater than 90% stenosis of the proximal anastomosis of theabove knee to below-knee saphenous vein bypass graft. This was treatedsuccessfully with a 4 x 40 mm Hussein balloon. Mynx closure wassuccessful on the right femoral artery, 5-English sheath.ADDITIONAL FINDINGS:Right femoral to below-knee popliteal bypass graft is widely patent withpatent anterior tibial and peroneal as a dominant runoff.INDICATIONS:The patient is a 55-year-old lady who is a heavy smoker and continues tosmoke. I had previously met her and performed, in the same admission,bilateral bypass grafts of both legs for critical limb ischemia in bothlegs at the same time. She has gone on to heal these wounds successfully,but her bypass graft on her left leg on surveillance imaging was found tohave high-grade stenosis of the proximal anastomosis by velocity criteria.We felt she would benefit from an attempted angioplasty for salvage of thebypass graft. Patient agreed to move forward.PROCEDURE IN DETAIL:Patient was taken to the interventional suite and her bilateral groins wereprepped and draped in standard sterile fashion. Using a micropuncturesheath, I had first attempted to gain access into the scarred right commonfemoral artery. Ultimately, even under ultrasound guidance, this provedunsuccessful. I ended up using an 18-gauge needle with direct puncture ofthe common femoral just above where the bypass graft comes off on the rightside. With an 18-gauge needle in place now with pulsatile flow seen, Iinserted an Amplatz wire into the 18-gauge needle and was then able toadvance a 5-English sheath into the right iliac artery. I then inserted anOmniflush catheter and did an aortogram. Aortogram performed showed patentbilateral renal arteries, patent abdominal aorta, patent iliac arteriesbilaterally. I then performed third-order catheterization of the leftcommon femoral artery and this revealed a patent common femoral artery,patent profunda femoral artery. Of note, the profunda, common femoral andiliac arteries on the left were extremely small, consistent withessentially her small vessels throughout her entire body. The SFAproximally is open and very diminutive in size measuring around 3-4 mm atthe above-knee popliteal artery on the left side. The femoral artery has abypass graft coming off of it, which has a high-grade greater than 90%stenosis. The above-knee popliteal as well as its stent is completelyoccluded. There are large collaterals that feed from the distal SFA downto the below-knee. The bypass graft is patent and carries the majority offlow to the below-knee popliteal artery. That below-knee popliteal arteryon the left is patent without any evidence of stenosis. The anteriortibial is a single dominant runoff on the left leg. I then attempted toperform third-order catheterization. I then cannulated the left below-kneepopliteal artery as well as bypass graft using a Thruway wire advancedthrough a Destination 5-English sheath that was switched out over an Amplatzwire. With the Thruway wire now in place, I then angioplastied theproximal anastomotic stenosis. Completion angioplasty showed no residualstenosis, less than 10% residual stenosis and an excellent result and noevidence of any dissection. Flow was now rapid into the left foot. Amadou performed a quick right leg angiogram from the destination sheathwith the tip positioned in the external iliac artery. This revealed patentcommon femoral, good stick point for Mynx closure which is appropriate,patent profunda femoral artery and a patent common femoral to below-kneepopliteal artery bypass graft, which did not have any evidence of stenosisproximally or distally. The below- knee popliteal artery was imaged andthis revealed patent vessels including retrograde flow up the poplitealartery on the right leg. The anterior tibial, tibioperoneal trunk andperoneal are dominant. The PT appears to be occluded. At this point, Ifelt no further interventions were required. I withdrew all catheters andwires and performed Mynx closure. The heparin that we had given was notreversed. Hemostasis was assured by manual pressure. The patienttransferred to recovery room in stable condition.I was present and performed all critical portions of the procedure.BETZY Borrego/CARMINE Job #: [id number] DOC #: [id number] Name Value Range Interpretation Code Description Data [facility] Supporting Document(s) ID Date Data Source [id number] 08/13/2020 01:16:12 PM EDT [facility] Name Value Range Interpretation Code Description Data [facility] Supporting Document(s) IR IS ARTERIOGRAM EXTREMITY SINGLE LEFT [facility] ID Date Data Source [id number] 08/10/2020 05:16:00 PM EDT [facility] Name Value Range Interpretation Code Description Data [facility](s) Supporting Document(s) COVID-19 RT-PCR BLADDER CLEANER SWAB Not Detected Not Detected [facility] A not detected (negative) test result fo r this test means that SARS-CoV-2 RNA was not present in the specimen above the limit ofdetection. Laboratory test results should always be considered in thecontext of clinical observations and epidemiological data in making afinal diagnosis and patient management decisions. Results will bereported to government agencies as required.This test has received Emergency Use Authorization (EUA). We will continue to follow federal and state requirements for COVID-19 reporting. This test has been authorized only for the detection of RNAfrom SARS-CoV-2 virus and diagnosis of SARS-CoV-2 virus infection, notfor any other viruses or pathogens. This test is only authorized for the duration of the declaration that circumstances exist justifying the authorization of the emergency use of in vitro diagnostic tests for detection of SARS-CoV-2 virus and/or diagnosis of SARS-CoV-2 virusinfection under section 564(b)(1) of the Act, 21 U.S.C. section 360bbb-3(b)(1), unless the authorization is terminated or revoked sooner. We will continue to follow federal and state requirements for both notification of results and any confirmatory testing that is required by another agency. This test was developed and its performance characteristics determined by [facility] and verified at [facility]. It has not been cleared or approved by the U.S. Food and Drug Administration for diagnostic use. This test has been authorized by FDA under an EUA for use by authorized laboratories. Results should be used in conjunction with clinical findings, and should not form the sole basis for a diagnosis or treatment decision. Methods: SARS-CoV-2 Multiplex RT-PCR Assay ID Date Data Source [id number] 08/08/2020 04:15:00 PM EDT [facility] Name Value Range Interpretation Code Description Data Mary rce(s) Supporting Document(s) SARS-CoV-2 (COVID-19) N gene [Presence] in Respiratory specimen by CHLOE with probe detection NEGATIVE [facility] This lab was ordered by [facility] and reported by [facility]. ID Date Data Source [id number] 07/23/2020 09:54:00 AM EDT [facility] Name Value Range Interpretation Code Description Data Mary rce(s) Supporting Document(s) COVID-19 RT-PCR BLADDER CLEANER SWAB Not Detected Not Detected [facility] A not detected (negative) test result fo r this test means that SARS-CoV-2 RNA was not present in the specimen above the limit ofdetection. Laboratory test results should always be considered in thecontext of clinical observations and epidemiological data in making afinal diagnosis and patient management decisions. Results will bereported to government agencies as required.This test has received Emergency Use Authorization (EUA). We will continue to follow federal and state requirements for COVID-19 reporting. This test has been authorized only for the detection of RNAfrom SARS-CoV-2 virus and diagnosis of SARS-CoV-2 virus infection, notfor any other viruses or pathogens. This test is only authorized for the duration of the declaration that circumstances exist justifying the authorization of the emergency use of in vitro diagnostic tests for detection of SARS-CoV-2 virus and/or diagnosis of SARS-CoV-2 virusinfection under section 564(b)(1) of the Act, 21 U.S.C. section 360bbb-3(b)(1), unless the authorization is terminated or revoked sooner. We will continue to follow federal and state requirements for both notification of results and any confirmatory testing that is required by another agency. This test was developed and its performance characteristics determined by [facility] and verified at [facility]. It has not been cleared or approved by the U.S. Food and Drug Administration for diagnostic use. This test has been authorized by FDA under an EUA for use by authorized laboratories. Results should be used in conjunction with clinical findings, and should not form the sole basis for a diagnosis or treatment decision. Methods: SARS-CoV-2 Multiplex RT-PCR Assay ID Date Data Source [id number] 07/22/2020 01:45:00 PM EDT [facility] Name Value Range Interpretation Code Description Data Mary rce(s) Supporting Document(s) SARS-CoV-2 (COVID-19) N gene [Presence] in Respiratory specimen by CHLOE with probe detection NEGATIVE [facility] This lab was ordered [facility] and reported by [facility]. ID Date Data Source [id number] 07/19/2020 09:25:00 AM EDT [facility] Name Value Range Interpretation Code Description Data Mary rce(s) Supporting Document(s) COVID-19 RT-PCR NASAL SWAB Not Detected Not Detected [facility] A not detected (negative) test result fo r this test means that SARS-CoV-2 RNA was not present in the specimen above the limit ofdetection. Laboratory test results should always be considered in thecontext of clinical observations and epidemiological data in making afinal diagnosis and patient management decisions. Results will bereported to government agencies as required.This test has received Emergency Use Authorization (EUA). We will continue to follow federal and state requirements for COVID-19 reporting. This test has been authorized only for the detection of RNAfrom SARS-CoV-2 virus and diagnosis of SARS-CoV-2 virus infection, notfor any other viruses or pathogens. This test is only authorized for the duration of the declaration that circumstances exist justifying the authorization of the emergency use of in vitro diagnostic tests for detection of SARS-CoV-2 virus and/or diagnosis of SARS-CoV-2 virusinfection under section 564(b)(1) of the Act, 21 U.S.C. section 360bbb-3(b)(1), unless the authorization is terminated or revoked sooner. We will continue to follow federal and state requirements for both notification of results and any confirmatory testing that is required by another agency. This test was developed and its performance characteristics determined by [facility] and verified at [facility]. It has not been cleared or approved by the U.S. Food and Drug Administration for diagnostic use. This test has been authorized by FDA under an EUA for use by authorized laboratories. Results should be used in conjunction with clinical findings, and should not form the sole basis for a diagnosis or treatment decision. Methods: SARS-CoV-2 Multiplex RT-PCR Assay ID Date Data Source [id number] 07/18/2020 12:45:00 PM EDT [facility] Name Value Range Interpretation Code Description Data Mary rce(s) Supporting Document(s) SARS-CoV-2 (COVID-19) N gene [Presence] in Respiratory specimen by CHLOE with probe detection NEGATIVE [facility] This lab was ordered by [facility] and reported by [facility]. ID Date Data Source [id number] 07/09/2020 10:30:00 AM EDT [facility] ([facility]) Name Value Range Interpretation Code Description Data Mary rce(s) Supporting Document(s) Arterial Ultrasound Lower Extremity Bilateral Laboratory test result [facility] ([facility]) ID Date Data Source [id number] 06/15/2020 05:41:00 PM EST [facility] Name Value Range Interpretation Code Description Data Mary rce(s) Supporting Document(s) SARS coronavirus 2 RNA [Presence] in Res piratory specimen by CHLOE with probe detection NEGATIVE [facility] This lab was ordered by [facility] a nd reported by [facility]. ID Date Data Source [id number] 05/31/2020 12:00:00 AM EST [facility] Anatoliy [facility]gs [facility] Patient Name: [id number] Date [place] : 1965[place] [address] Date of Exam: 05/31/2020#: Fax: [phone] EXAM: MAMMO SCREENING WITH CADCLINICAL INFORMATION: Screening.Comparison 12/28/2017 as well as other prior exams.Family history of aunt with breast cancer in her 30's.Based on the personal and family history information your patient suppliedat the time of imaging, her lifetime risk of breast cancer estimated by theTyrer-Cuzick model is 7.5%. Given that this patient has less than 20% TCrisk score, no further medical management is currently recommended at thistime.Digital screening (2D) mammography was performed bilaterally.Additionally, breast tomosynthesis (3D mammography) was performedbilaterally in the CC and MLO projections and compared to the prio rexam(s).There has been no change in appearance of the mammogram from prior studies. There is a moderate amount of residual fibroglandular tissue remaining,which is fairly symmetric. There has been no interval development ofdominant masses, areas of structural distortion or clusters ofmicrocalcifications typical of malignancy.The Volpara volumetric breast density category is B, there are scatteredareas of fibroglandular density.IMPRESSION:BI-RADS Category 1 - Negative Mammogram. Currently no mammographicevidence of malignancy. Routine follow-up is recommended in 1 year.This mammogram was read with the assistance of Hanna eNelyAccord, an FDAapproved computer aided detection system for mammography.Negative x-ray reports should not delay surgical consultation if a dominantor clinically suspicious mass is present.Not all breast cancers can be identified by mammography. Therefore, werecommend that you continue to perform regular breast self-examination andphysical examination and then promptly contact your physician of anyconcerns or changes.Adenosis and dense breasts may obscure an underlying neoplasm. The patient states that a clinical breast examination was over a year ago.LUZMARIA Shaw/Nathalie you for referring TATIANNA SOTO to our office.Electronically Signed - VANESSA IDCKERSON MD 05/31/20 14:56 Name Value Range Interpretation Code Description Data Mary rce(s) Supporting Document(s) ID Date Data Source [id number] 05/21/2020 11:23:16 AM EST [facility] NT INFORMATIONPatient MRN Name Date of Age Gend*PT [id number] Tatianna Soto 1965 55 years F IPPT Location Admission Date/Time Visit ID Attending [id number] 05/18/20 0117 --- --- EPI ID CSN Admitting Provider [id number] Anatoliy Bonilla MD([id number]) Attestation signed by Anatoliy Bonilla MD at 05/21/2020 11:23 AMAgree with Ms. Rachelnathalyalonso's note.Signature: TIMA Reynosoate: May 21, 2020Time: 11:20 AM Inpatient History & PhysicalTatianna SotoMRN: [id number] and Plan:Principal Problem: STEMI (ST elevation myocardial infarction)Active Problems: Type 2 diabetes mellitus with circulatory disorder, with long-term current useof insulin Heavy cigarette smoker (20-39 per day) HLD (hyperlipidemia) Diabetic neuropathy Chronic GERD Coronary artery disease involving [place] coronary artery of [place] heartwithout angina pectoris Peripheral vascular disease COPD (chronic obstructive pulmonary disease) Obesity1. STEMI: presented to [facility] with midsternal chest pain. ST elevation ininferior leads. Was given TNKase and started on heparin gtt. Monitor tele, cycletroponin. Continue heparin, statin. Check lipids, A1C, TSH. Keep NPO for cath julisa. Morphine PRN pain. Hx CABG 2016 times 5 by placing KULKARNI to LAD, triplesequential graft to diagonal, OM1, and OM2, and single saphenous vein graft tovery distal RCA.2. DM II: was having hypoglycemic events last admission. Start lantus 20 unitsBID and SS and adjust as needed.3. HLD: continue statin, check lipids4. PVD/chronic wound: follows with Dr. Sanford. LLE bypass done 01/2020-incisions well healed. Chronic left heel wound followed by wound care centeroutpatient. Wound consult placed.5. Tobacco abuse: cessation discussed. Patient continues to smoke 1/2 ppddespite longstanding encouragement for cessation.6. COPD: Albuterol sched and PRNDVT px: heparinPatient is FULL CODE verified by discussion with patient.COVID is negative at [facility] 05/18/20D/W Dr. Bonilla. Please refer to attestation for additions.History of Present Illness: Tatianna is a 55 year old female with PMH of GERD,arthritis, COPD, CAD s/p CABG x5, neuropathy, DM II, tobacco abuse, HLD,diabetic coma who was transferred to [facility] from [facility] with STEMI.The patient had been in her usual state of health until yesterday afternoon atwhich time she had woken up from a nap and went to sit in her recliner and hadsudden chest pain. The pain was midsternal and did not radiate. She deniedassociated nausea, vomiting, diaphoresis, dizziness, or lightheadedness. Onarrival to [facility], she was noted to have ST elevation in inferior leads. Shewas given TNKase and started on a heparin drip. She has been taking plavix andasa daily. Of note, she has had frequent hospitalizations over the last 3-4months for extensive vascular procedures and infections. She reports compliancewith prescribed medications and follow up appointments. She is, however, stillsmoking at least 0.5 ppd despite longstanding encouragement f or cessation. Sheis s/p CABG x 5 in 2015 (see op note below). She follows with Dr. Bose with last OV 2020. She will be admitted for further treatment ofSTEMI.Past Medical History:Past Medical History:Diagnosis Date Arthritis Chronic [...] Fraction is 50 %. Apical anterior wall hypok inesis. Aoritc rootsclerosis/calcification with a round calcified nodule [...] Surgical History:Procedure Laterality Date ANGIOPLASTY 07/2019 Dr. Cedarstrand BLADDER SURGERY CARDIAC SURGERY N/A 01/01/2016 Procedure: MEDIAN STERNOTOMY CORONARY GRAFTS X5 KULKARNI TAKEDOWN W RIGHT LEGENDOSCOPIC SAPHENOUS VEIN HARVEST; Surgeon: Saba Smith MD; [facility]; Service: Cardiac/Open Heart; Laterality: N/A; FOOT SURGERY [...] femoral endarterectomy, Iliac to profunda femoral bypass aznqi0xv ringed PTFE and Jump graft from the [...] needed for shortness of breath 0 Taking amoxicillin-clavulanate (AUGMENTIN) 875-125 MG per tablet Taking ASPIRIN ADULT 325 MG tablet Take 325 mg by mouth daily Taking atorvastatin (LIPITOR) 80 MG tablet Take 80 mg by mouth daily Taking buPROPion (WELLBUTRIN XL) 150 MG 24 hr tablet Take 150 mg by mouth dailyTaking clopidogrel (PLAVIX) 75 MG tablet Take 75 mg by mouth daily Taking cyclobenzaprine (FLEXERIL) 5 MG tablet Take 5 mg by mouth 2 (two) times a dayas needed for muscle spasms 2 Taking docusate sodium (COLACE) 100 MG capsule Take 200 mg by mouth 2 (two) times aday as needed for constipation 1 Taking escitalopram (LEXAPRO) 20 MG tablet Take 20 mg by mouth daily Taking ferrous sulfate 325 (65 FE) MG EC tablet Take 325 mg by mouth daily withbreakfast 0 Taking fluconazole (DIFLUCAN) 200 MG tablet Take 200 mg by mouth daily Taking lisinopril (PRINIVIL,ZESTRIL) 5 MG tablet Take 5 mg by mouth daily Taking loratadine (CLARITIN) 10 MG tablet Take 10 mg by mouth daily Taking metoclopramide (REGLAN) 10 MG tablet Take 10 mg by mouth 2 (two) times a dayTaking omeprazole (PRILOSEC) 40 MG capsule Take 40 mg by mouth 2 (two) times a dayTaking ondansetron (ZOFRAN-ODT) 4 MG disintegrating tablet Take 4 mg by mouth every 8(eight) hours as needed for nausea Taking oxyCODONE-acetaminophen (PERCOCET) 5-325 MG per tablet TAKE ONE TABLET BYMOUTH EVERY 4 HOURS NEEDED FOR PAIN MAXIMUM DAILY DOSE 6 TABLETS Taking pentoxifylline (TRENTAL) 400 MG CR tablet Take 400 mg by mouth 3 (three) timesa day with meals 6 Taking pregabalin (LYRICA) 200 MG capsule TAKE ONE CAPSULE BY MOUTH TWICE A DAYMAXIMUM DAILY DOSE 2 CAPSULES Taking TRESIBA FLEXTOUCH 200 UNIT/ML SOPN Inject 72 Units under the skin 2 (two)times a day 2 Taking TRULICITY 4.5 MG/0.5ML SOPN INJECT 1 SUBCUTANEOUSLY ONCE A WEEK TakingAllergies:Basaglar kwikpen [insulin glargine]; Grapefruit concentrate; andInvokana [...] file Gets together: Not on file Attends sabianist service: Not on file Active member of [...] children, all > 22 yo.Review of SystemsConstitutional: Negative for activity change, appetite change, chills,diaphoresis, fatigue and fever.HENT: Negative for sore throat and trouble swallowing.Respiratory: Negative for cough, choking, chest tightness, shortness of breath,wheezing and stridor.Cardiovascular: Positive for chest pain. Negative for palpitations and legswelling.Gastrointestinal: Negative for abdominal pain, constipation, diarrhea, nauseaand vomiting.Genitourinary: Negative for difficulty urinating.Musculoskeletal: Negative for arthralgias and myalgias.Skin: Positive for wound (chronic- left heel). Negative for rash.Neurological: Negative for dizziness, syncope, light-headedness and headaches.Temp: [98 F] 98 FHeart Rate: [89] 89Resp: [16] 16BP: (113)/(77) 113/77Physical ExamConstitutional: She is oriented to person, place, and time. She appearswell- developed. No distress.HENT:Head: Normocephalic.Eyes: Pupils are equal, round, and reactive to light. EOM are normal.Cardiovascular: Normal rate and regular rhythm. Peripheral Edema: no lowerextremity edema.Pulmonary/Chest: Effort normal. No respiratory distress. She has no wheezes. Shehas no rhonchi. She has no rales.Abdominal: Soft. Bowel sounds are normal. She exhibits no distension. There isno tenderness. There is no guarding.Neurological: She is alert and oriented to person, place, and time.Skin: Skin is warm and dry. She is not diap horetic.Vitals reviewed.Labs, Imaging and Other Diagnostic Tests:Diagnostic test reviewed for today's visit include: Old Records Reviewed, Labsand ECG.Significant findings: OPERATIVE REPORT OPNAME: TATIANNA SOTO#: [id number] ROOM #: [id number] DATE: 01/01/2016 PT TYPE: I SURACCT #: [id number] : 1965 SEX: FReferring Physician: ,Primary Care Physician: ,DISCHARGE DATE: SURGEON: SABA SMITH MD COMPUTER TESTER: GLENIS FAY PREOPERATIVE DX:1. Acute non-ST elevation ID.2. Past history of respiratory failure, tracheostomy.3. Diabetes mellitus.4. Hypercholesterolemia.5. Severe chronic obstructive pulmonary disease. POSTOPERATIVE DX:1. Acute non-ST elevation ID.2. Past history of respiratory failure, tracheostomy.3. Diabetes mellitus.4. Hypercholesterolemia.5. Severe chronic obstructive pulmonary disease. PROCEDURE: Urgent coronary artery bypass times 5 by placing KULKARNI to LAD,triple sequential graft to diagonal, OM1, and OM2, and single saphenous veingraft to very distal RCA. ANESTHESIA: General anesthesia. FINDINGS: Height 163, weight 81 kg, pump time 129 minutes, cross-clamp time93, myocardial temperature 9, perfusate temperature 33.5. INDICATIONS FOR SURGERY: This is a 50-year-old, white female with a historyof smoking, severe COPD. The patient is status post respiratory failure,intubation, tracheostomy, uncontrolled diabetes mellitus, admitted with non-STelevation ID. Cardiac catheterization revealed severe coronary diseaseincluding total RCA and total LAD lesion, ejection fraction of 40% to 46%.Distal coronaries were very, very diseased and very calcified. The lungs werehuge and emphysematous. DESCRIPTION OF PROCEDURE: After the patient was brought to the OR,endotracheal general anesthesia was induced. Prepping and draping was done inroutine fashion. Median sternotomy incision was made, carried down to thesternum. The sternum was sawed in half. Left-sided sternum was elevated.Left internal mammary artery was taken down. Heparin was given. Cannulationof the aorta and atrium was done. Transection of the mammary showed excellentflow. Meanwhile, the saphenous vein was harvested endoscopically withIntooBR System, and the sites were copiously irrigated with antibioticsolu tion and closed in layered standard fashion. The patient was placed oncardiopulmonary bypass and cooled down. Crossclamp was applied. 1000 cc ofcold cardioplegia was run through the root of the aorta. Temperature ofmyocardium reached 9, perfusate temperature 33.5. Arteriotomy was done onOM2. End-to-side anastomosis was done, which could accommodate 30 cc flow perminute. The patient received a dose of cardioplegia. Arteriotomy was done onOM1. Nhsy-au-vjez anastomosis on the same graft was done which couldaccommodate 30 cc flow per minute. Both grafts could accommodate 50 cc flowper minute. The patient received a dose of cardioplegia. Arteriotomy wasdone on diagonal. Tmoe-gb-fzpk anastomosis was done which could stgkjihfxle32 cc flow per minute. Triple sequential graft could accommodate 90 to 100 ccflow per minute. The patient received a dose of cardioplegia. Arteriotomywas done in very, very distal RCA. Reverse saphenous vein graft was done tothis artery, which could accommodate 40 to 50 cc flow per minute. The patientreceived a dose of cardioplegia and started to be rewarmed. Arteriotomy wasdone on LAD. KULKARNI was anastomosed to the LAD with 8-0 Prolene in runningfashion and secured to the epicardium. Temperature of myocardium increasedsharply after removal of bulldog from the TREVON, suggestive of good flow to theLAD. Crossclamp was removed. The patient's sinus rhythm came b ackspontaneously. Two proximal anastomoses were done using 6-0 Prolene inrunning fashion. Bulldogs were removed after de-aeration of the graft wasdone. One bipolar ventricular wire and three chest tubes were applied,brought through separate stab wound and secured. At 37 degrees, the patientwas taken off the bypass. Decannulation of the atrium was done. Site wassecured. Protamine was started. Decannulation of the aorta was done. Thesite was secured. Wires were applied to the sternum. After checking for allpossible sites of bleeding, making sure there was good hemostasis and copiousirrigation with antibiotic solution, closure of the midsternum was done, whichthe patient tolerated very well. Fascia was closed with #1 Vicryl.Subcutaneous tissue was closed with 2-0 Vicryl. Skin was closed with 4- 0Monocryl. The patient was transferred to the intensive care unit in stablecondition. We used vancomycin paste at the beginning and at the end on thebone marrow. We also used platelet-poor and platelet-rich plasma gel on bonemarrow for hemostasis. SABA SMITH MD AN/MedQD: 01/01/2016 23:16T: 01/02/2016 12:25Job # T: [id number] V: [id number] CC: Rom Armijo MD Last signed by: Saba Smith MD at 01/07/2016 4:21 PM.Signature: Nikki Jackson COCOA MILLING MACHINE OPERATOR-BCDate: May 18, 2020Time: 2:53 AM Name Value Range Interpretation Code Description Data Mary rce(s) Supporting Document(s) ID Date Data Source [id number] 05/21/2020 11:20:31 AM EST [facility] NT INFORMATIONPatient MRN Name Date of Age Gend*PT [id number] Charles Tatianna 1965 55 years F IPPT Location Admission Date/Time Visit ID Attending [id number] 05/18/20 0117 --- --- EPI ID CSN Admitting Provider [id number] Anatoliy Bonilla MD([id number]) Attestation signed by Anatoliy Bonilla MD at 05/21/2020 11:20 AMAgree with d/c.Signature: TIMA Reynosoate: May 21, 2020Time: 11:20 AM Physician Discharge Summary Tatianna SotoMRN: [id number] date: 05/18/2020ttending Physician: Anatoliy Bonilla MDAdmission Diagnosis: STEMI (ST elevation myocardial infarction)Principle Procedures:1. Cardiac catheterization: 05/18/2020Interpretation Summary There is mild left ventricular systolic dysfunction. Prox LAD to Mid LAD lesion is 100% stenosed. Mid RCA lesion is 100% stenosed. Mid LAD to Dist LAD lesion is 40% stenosed. Ost Cx to Mid Cx lesion is 100% stenosed. 2nd Mrg lesion is 100% stenosed.No complications, estimated blood loss minimal. Successful stenting of an occluded second obtuse marginal via the vein graft.Echocardiogram: 05/19/2020Interpretation Summary The left ventricular cavity is normal. There is distal until and apicalhypokinesis. Visually estimated LVEF 50%. Grade I (mild) left ventriculardiastolic dysfunction. mild concentric left ventricular hypertrophy observed. No hemodynamically significant valvular disease. No significant change from prior study of 12/30/2015.Indication for Admission: "Tatianna is a 55 year old female with PMH of GERD,arthritis, COPD, CAD s/p CABG x5, neuropathy, DM II, tobacco abuse, HLD,diabetic coma who was transferred to [facility] from [facility] with STEMI.The patient had been in her usual state of health until yesterday afternoon atwhich time she had woken up from a nap and went to sit in her recliner and hadsudden chest pain. The pain was midsternal and did not radiate. She deniedassociated nausea, vomiting, diaphoresis, dizziness, or lightheadedness. Onarrival to [facility], she was noted to have ST elevation in inferior leads. Shewas given TNKase and started on a heparin drip. She has been taking plavix andasa daily. Of note, she has had frequent hos pitalizations over the last 3-4months for extensive vascular procedures and infections. She reports compliancewith prescribed medications and follow up appointments. She is, however, stillsmoking at least 0.5 ppd despite longstanding encouragement for cessation. Sheis s/p CABG x 5 in 2015 (see op note below). She follows with Dr. Millanoutpatient with last OV 2020. She will be admitted for further treatment ofSTEMI."Hospital Course & Complications: Patient was admitted for STEMI, patientunderwent cardiac catheterization which revealed stenosis in second obtusemarginal, was treated with drug-eluting stent. Patient has tolerated procedurewell and post op course was uneventful. Renal function stable post op. Proceduresite right groin stable, no hematoma or drainage noted. Patient was monitored ontelemetry and remained in sinus rhythm. All vital signs stable, lab reviewed.Patient was ambulating without symptoms.Patient was seen and evaluated by Dr. Bonilla and deemed appropriate for discharge to home. Patient was in agreement. Patient is in stable condition,ambulating, no angina, vital signs stable. No EKG changes. All dischargeinstructions, activity limitations and medications were reviewed. All questionsanswered. Patient verbalized the understanding of the need for strictmedications and follow up compliance. Patient will be send home with DAPT (ASA,Plavix), BB, Statin, ACEI. Patient will be follow up with Dr. Millan in 1- 2weeks. Patient is to contact our office with any discomfort or issuesimmediately.Past Medical History:Past Medical History:Diagnosis Date Arthritis Chronic [...] for while Non-STEMI (non-ST elevated myocardial infarction) 2016Most Recent Labs:Cardiac:Lab ResultsComponent Value Date TROPONINI 31.00 (HH) 05/18/2020 POCTROP <0.01 (L) 12/07/2019 PROBNP 206 (H) 05/18/2020BC with Diff:Lab ResultsComponent Value Date WBC 9.9 05/19/2020 RBC 4.98 05/19/2020 HGB 13.6 05/19/2020 HCT 41.0 05/19/2020 MCV 82.4 05/19/2020 MCH 27.4 05/19/2020 MCHC 33.2 05/19/2020 RDW 16.0 (H) 05/19/2020 PLT 234 05/19/2020 MPV 8.2 05/19/2020 LYMPHOPCT 30.1 05/18/2020 MONOPCT 5.7 05/18/2020 EOSPCT 4.5 05/18/2020 BASOPCT 0.9 05/18/2020 NEUTROABS 6.5 05/18/2020 MONOABS 0.6 05/18/2020 BASOSABS 0.1 05/18/2020MP:Lab ResultsComponent Value Date NA 136 05/19/2020 K 4.6 05/19/2020 CL 102 05/19/2020 CO2 30 05/19/2020 ANIONGAP 4 (L) 05/19/2020 BUN 21 05/19/2020 CREATININE 0.91 05/19/2020 BCR 23.1 (H) 05/19/2020 GLU 408 (HH) 05/19/2020 CALCIUM 9.0 05/19/2020 PROT 6.8 04/05/2019 ALBUMIN 2.7 (L) 05/18/2020 GLOB 4.0 05/18/2020 AGRC 0.7 05/18/2020 ALKPHOS 160 (H) 05/18/2020 LABBILI 0.2 05/18/2020 AST 66 (H) 05/18/2020 ALT 18 05/18/2020 GFRAA >60 05/19/2020 GFRNONAA >60 05/19/2020oags:Lab ResultsComponent Value Date PROTIME 10.4 05/18/2020 INR 0.99 05/18/2020 APTT 44.3 (H) 05/18/2020-Dimer: No results found for: DDAT, PROCALCITON, HLNUPONLfoA0s:Lab ResultsComponent Value Date HGBA1C 7.6 (H) 04/11/2020Hyperlipidemia:Lab ResultsComponent Value Date CHOL 163 05/18/2020 TRIG 245 (H) 05/18/2020 HDL 38 (L) 05/18/2020 CHOLHDL 4.3 05/18/2020 LDLCALC 76 05/18/2020Medications:Your medication listSTART taking these medications Instructions Last Dose Given Morning Afternoon Evening Bedtime As Neededaspirin 81 MG chewable tabletStart taking on: May 20eplaces: Aspirin Adult 325 MG tablet Chew 1 tablet (81 mg total) dailycarvedilol 3.125 MG tabletCommonly known as: COREG Take 1 tablet (3.125 mg total) by mouth 2 (two) times a daynitroglycerin 0.4 MG SL tabletCommonly known as: NITROSTAT Place 1 tablet (0.4 mg total) under the tongue every 5 (five) minutes as neededfor chest painCHANGE how you take these medications Instructions Last Dose Given Morning Afternoon Evening Bedtime As Neededpregabalin 300 MG capsuleCommonly known as: LYRICAWhat changed: Another medication with the same name was removed. Continuetaking this medication, and follow the directions you see here. Take 300 mg by mouth 2 (two) times a dayCONTINUE taking these medications Instructions Last Dose Given [...] 75 MG tabletCommonly known as: PLAVIX Take 1 tablet (75 mg total) by mouth dailycyclobenzaprine 5 MG tabletCommonly known as: FLEXERIL Take 5 mg by mouth 2 (two) times a day as needed for muscle spasmsdocusate sodium 100 MG capsuleCommonly known as: COLACE Take 200 mg by mouth 2 (two) times a day as needed for constipationescitalopram 20 MG tabletCommonly known as: LEXAPRO Take 20 mg by mouth dailyferrous sulfate 325 (65 [...] mouth 3 (three) times a day with mealsTresiba FlexTouch 200 UNIT/ML SopnGeneric drug: Insulin Degludec Inject 72 Units under the skin 2 (two) times a dayTrulicity 4.5 MG/0.5ML SopnGeneric drug: Dulaglutide Inject 4.5 mg under the skin once a week On SundaysTOP taking these medicationsAspirin Adult 325 MG tabletGeneric drug: aspirinReplaced by: aspirin 81 MG chewable tabletWhere to Get Your MedicationsThese medications were sent to [facility] - [place], [place] - [address] [place] [address] aspirin 81 MG chewable tablet carvedilol 3.125 MG tablet clopidogrel 75 MG tablet nitroglycerin 0.4 MG SL tabletDischarge Exam:Vitals: Temp: [97 F-98.1 F] 97.6 FHeart Rate: [85-97] 85Resp: [14-33] 20BP: (110-132)/(58-73) 124/63Pleasant, comfortable, not in acute distress.Awake, alert, oriented times 3.Moves all extremities.HEENT: No recent change in vision or hearing.Lungs: Clear to auscultation bilaterally.Chest wall: no tendernessHeart: regular rate and rhythm, S1, S2 normal, no murmur, click, rub or gallopAbdomen: Soft, nontender, bowel sounds present.Extremities: No edema. Cardiac cath site right groin, with dry dressing,dressing C/D/I, no hematoma noted, + pulsePulses: 2+ and symmetricSkin: No rash or lumps.Neuro: grossly normalLymph nodes: Cervical, supraclavicular, and axillary nodes normal.The remainder of the physical exam is noncontributory.Discharged Condition:stableDisposition: Home or Self CareFollow Up: Dr. Millan in 1-2 weeksSignature: Yue Manzo NPDate: May 19, 2020Time: 11:57 AM Name Value Range Interpretation Code Description Data Mary rce(s) Supporting Document(s) ID Date Data Source [id number] 05/19/2020 01:01:21 PM EST [facility] [place] kylie CEDILLO Name Value Range Interpretation Code Description Data Mary rce(s) Supporting Document(s) POC NOVA GLU 218 mg/dL (70-99) H [facility] [place] Duarte THOMPSON PERFORMED BY [facility] CLINICAL STAFF ID Date Data Source [id number] 05/19/2020 09:46:33 AM EST [facility] Name Value Range Interpretation Code Description Data Mary rce(s) Supporting Document(s) &PDF [facility] [id number] FcG [file] [id number]= ID Date Data Source [id number] 05/19/2020 09:11:14 AM EST [facility] Name Value Range Interpretation Code Description Data Mary rce(s) Supporting Document(s) POC NOVA GLU 397 mg/dL (70-99) H [facility] [place] [facility] [place] PERFORMED BY [facility] CLINICAL STAFF ID Date Data Source [id number] 05/19/2020 07:46:02 AM EST [facility] Name Value Range Interpretation Code Description Data Mary e(s) Supporting Document(s) SODIUM 136 mmol/L (136-145) [facility] POTASSIUM 4.6 mmol/L (3.6-5.2) [facility] CHLORIDE 102 mmol/L (100-108) [facility] CO2 30 mmol/L (22-31) [facility] ANION GAP 4 mmol/L (7-16) L [facility] UREA NITROGEN 21 mg/dL (7-24) [facility] CREATININE 0.91 mg/dL (0.60-1.00) [facility] BUN/CREAT RATIO 23.1 RATIO (10.0-20.0) H [facility] GLUCOSE 408 mg/dL (70-99) HH [facility] ALERTED CRITICAL RESULT TOKATERYNA [id number] IN D5 47621 ON 05.19.20 [place] 0744[place] [address] CALCIUM 9.0 mg/dL (8.4-10.2) [facility] GFR >60 ml/min/1.73m2 (>59) [facility] GFR ( AMER) >60 ml/min/1.73m2 (>59) [facility] GFR INTERPRETATION [facility] --NORMAL KIDNEY FUNCTION OR MILD DISEASE - GFR >OR= 60CHRONIC KIDNEY DISEASE - GFR 15 - 59RENAL FAILURE - GFR <15 Est. GFR calculation based on the MDRDstudy equation, which assumes a steadystate for creatinine. Est. GFR should notbe used for medication dosing. ID Date Data Source [id number] 05/19/2020 07:15:12 AM EST [facility] Name Value Range Interpretation Code Description Data Mary rce(s) Supporting Document(s) WBC 9.9 10*3/uL (4.1-11.0) [facility] [place] [facility] [place] RBC 4.98 10*6/uL (4.00-5.40) [facility] HGB 13.6 g/dL (12.0-16.0) [facility] HCT 41.0 % (36.0-47.0) [facility] MCV 82.4 fL (80.0-95.0) [facility] [place] MCH 27.4 pg (27.0-32.0) [facility] [place] MCHC 33.2 g/dL (32.0-36.0) [facility] [place] RDW 16.0 % (10.5-14.5) H [facility] [place] PLT 234 10*3/uL (150-450) [facility] MPV 8.2 fL (7.1-10.7) [facility] ID Date Data Source [id number] 05/18/2020 06:32:00 PM EST [facility] Name Value Range Interpretation Code Description Data Mary rce(s) Supporting Document(s) POC NOVA GLU 87 mg/dL (70-99) [facility] PERFORMED BY [facility] ID Date Data Source [id number] 05/18/2020 06:52:58 PM EST [facility] Name Value Range Interpretation Code Description Data Mary rce(s) Supporting Document(s) APTT 44.3 s (22.0-34.3) H [facility] ID Date Data Source [id number] 05/18/2020 03:24:40 PM EST [facility] Name Value Range Interpretation Code Description Data Mary rce(s) Supporting Document(s) &PDF [facility] VANHLk7rGdVONrTo67/VVXpkFIUki9BjEUfyFAt6MCvxXHDiA1HkhFkjVNCFJITVLU2NPSoKVTHiNBXz FcG tzVYW1r5BcnRGmN23jhO6fPSFkg01qCTvhYT2+DQplbmRvYmoNCjQgMCBvYmoNCiAgPDwvRmlsdGVyIC 0SrAZ1ELGbT00dEEGaJTUcE0FvTFQ8FHK+Ca7WFQXphICvWY1KSzlV4IilnbsF6QjA/0VstLqIhyqNU0 fnFal7UQJCdj3NECY+2HrXiVFsh/UaCL+t4ej2t959 9NzeGuY1H/JWbXxdh4Dl5q/h1CLoy94L0O/1mteUGafcu37l61BJkgxmm4KUIl5I5eLWK5ty6jBInk+K Fk9V6Mds7ew9JbvLkpkSAQH/XzPcyYrF2mjqMCvYeaEw7Xv4hx/UaKJXh6eGm4fk2qJCEapGhyBWEdz6 VqscwZHUORFEo8bq8KY9opVY+ivCewLBSwj+VIF+ [file] ICAgICAgICAgICAgICAgICAgICAgICAgICAgICAgICAgICAgICAgICAgICAgICAgICAgICAgICAgICAg ICAgICAgICAgICAgICAgICAgICAgICAgICAgICAgICAgICAgICANCiAgICAgICAgICAgICAgICAgICAg ICAgICAgICAgICAgICAgICAgICAgICAgICAgICAgIC AgICAgICAgICAgICAgICAgICAgICAgICAgICAgICAgICAgICAgICAgICAgICAgICANCiAgICAgICAgIC AgICAgICAgICAgICAgICAgICAgICAgICAgICAgICAgICAgICAgICAgICAgICAgICAgICAgICAgICAgIC AgICAgICAgICAgICAgICAgICAgICAgICAgICAgICAN CiAgICAgICAgICAgICAgICAgICAgICAgICAgICAgICAgICAgICAgICAgICAgICAgICAgICAgICAgICAg ICAgICAgICAgICAgICAgICAgICAgICAgICAgICAgICAgICAgICAgICANCiAgICAgICAgICAgICAgICAg ICAgICAgICAgICAgICAgICAgICAgICAgICAgICAgIC AgICAgICAgICAgICAgICAgICAgICAgICAgICAgICAgICAgICAgICAgICAgICAgICAgICANCiAgICAgIC AgICAgICAgICAgICAgICAgICAgICAgICAgICAgICAgICAgICAgICAgICAgICAgICAgICAgICAgICAgIC AgICAgICAgICAgICAgICAgICAgICAgICAgICAgICAg ICANCiAgICAgICAgICAgICAgICAgICAgICAgICAgICAgICAgICAgICAgICAgICAgICAgICAgICAgICAg ICAgICAgICAgICAgICAgICAgICAgICAgICAgICAgICAgICAgICAgICAgICANCiAgICAgICAgICAgICAg ICAgICAgICAgICAgICAgICAgICAgICAgICAgICAgIC AgICAgICAgICAgICAgICAgICAgICAgICAgICAgICAgICAgICAgICAgICAgICAgICAgICAgICANCiAgIC AgICAgICAgICAgICAgICAgICAgICAgICAgICAgICAgICAgICAgICAgICAgICAgICAgICAgICAgICAgIC AgICAgICAgICAgICAgICAgICAgICAgICAgICAgICAg ICAgICANCiAgICAgICAgICAgICAgICAgICAgICAgICAgICAgICAgICAgICAgICAgICAgICAgICAgICAg ICAgICAgICAgICAgICAgICAgICAgICAgICAgICAgICAgICAgICAgICAgICAgICANCjw/iCAnI7tzzURl bsV1I3gzXy4LNl2WCD6tu2OlOKWiVWkasnByAqtNEt WxJFUxZgbSHjc2GQcaEX0TaNEnM7TtI2MyRJgoLC5IKLIzLRClbDVjQXOiNIQmRvZ9HFDoUXsiVH3RyG GpZForMEPyLWXtSbFdKTSkBKBrKDWqZQKwHKGQLOSkEXTxHeXqJEAdNLKiBW1ODVOjF545ogTnAn8YYb 9IXtQuYU3vjn9QVshuQFXlYcfZLhx0UArtFN6IwEIg cFTwTBIrRRNLFfQhV8guc5VdWszfDLYCXJjaQQ5Et8HzdBUhDFm+Ev4DYR0gw8RiIYubTFFcEM1hej4J DHzZFlOlK2HegUfcJBejhReuwuPyAU3ERCXkKWIysFLvIWnxWEYRTY6JNDyaLPL3WSUqqlMopVCyMTdy KT1KPOXcjtQrQdboITLEPGu+Yi5OJN7in2FzSHbeLY JyRD8mey4FAYuFYcQpQ9P9mXSlA8S9IUluFo2SCWLmUMTjIfZhNLRIRJrkNI5OOF9eriK8UC7PtZDgRY KwKRKwyIKrWZn9I86btDXyPHocBN6XBTW+Jose+Sh4OYQKaGXMvMIIsPoCpOWSJKyPeN7CeV0ZGk4JgT6 EpPF22fUcdqkSlZMimSC7ZYG2wTFQqPMLNBW0KzYKp aH3lmxIcPpLlTWMLXmFcG87hnVHnXJClTHT5RBMaFp1NIVNgD3YvhjGiuIspzrInEQMvTHURDP9RAHna oeGnzTJqpYigND79wUlcNC1SVq8SOlTgVL6opi8IrFQzVh0WUSI9OJ7LFCNtBQPiDCZmLXR1RULdCjAv NJbaYPAcNUKtIHE3HTLbLDAcBT2NUbCjOPYcYTU6Tj SwBJOnSRVpcf4MPDDsXQSoPLA9NNDzTSEwJHBgJXihTRCgDSAtFIzzBZOkXYVqSU1GZiAdHQEhTOM3As KjAECkEJNtdc9DIFQbXMVmKgw9XOUeHZKiIDEiHBxzOUMlCVY5NbI9JBShTVCeFZ7NYxAzIKQiVUM7WU UvDHJoYVRfyi2ZAAWvVUHlORj6DTMcKEAfEVGhXUig SKCfBXA9XUp5LSZaXSDlUS0XZcCsKKAdNTp0MZEeGVVjSEGnml7MJIQzJKOcSJJ0VZEtPVJfQPSqJShg PJEyZMH0MsL5AKLmVVErEF9KShXcSZOgLCi8DkGkFFQbBXKfpt8SSMGoCCYaEZC3WYSsJERaIIGsHWdp HPFdMYVoCmYjMLDsSCOwVJ3BSiQyRWMuIFRzFsKxGQ RgLGYeru1LSFRqTUXjEmFnPeDwXCPtCAOpRJjpWSTqBDQdPqOvTKBhEJMgTT1PUrKeJFWyIPR2NJrjQZ HiZVCfie2BTGAuXDFwCar3HKMySHUxBTHlGMdyQYAjKLM0SCZ6WBVrDLXvVD7BThVwRCSxAXv1HQIqDW YfIVEztm2CCZCoPKVbOUFtPxHjKMOgKDSiEGznRVYq GKU8TBX3PVRoLUMhNV0LDwAgYTSoLTi1FsWvCTCtZBCezd2RNDJeMJLgSKofNFCvKOLcHNXqKUlkZACo HJW8HRY3BCTyMQPmHE5NRhMmKYVlPkmpMAVmKSMbPOJasm9UQKFmBPE5LUZ7LYEgZIKiDDGhHSfwZGDh SEKzLImoPEUuSSGuIE3TCjVpBAPySsO1BFOvCBRyGU Zzwy7SWYOnKCI7Clu0NhPlIMXgXZBvRIjhGUJtJRx6QKMlTNIfXQYzWO8ZXcNzSRDnNIB1LNLzZHJyCN Labe6OSRMzGSXhMdn4ENMnJVSuNADrEFuyZXKsLUR6QIElEVYlAFBgZM5ANfErWOFjWTY5DEUtLXCfPJ Elzl3MVMXfBYBqXAT6JcCsVLKmQJSgRXo0fcIlhTXr ENv8SU7GQ2LtwaLoYAYOAk2Qu877GPX5NVMuJx3AC3yaMy8yXXDkONKQJb6YAJp6XbFeGOZ0EUguOSWl EEPvNBZcXxX2ZWDaBqW6DZAdABQ+ZHe0PHW9Vae9HRHcQjNcVxIrCITkRCffKGX0IaHrBvCdJw0bHGBK Cj4+HWxpoMPnoHesOXSIGaXoSFilBy3KTBKUU9JKBb== ID Date Data Source [id number] 05/18/2020 01:08:53 PM EST [facility] Name Value Range Interpretation Code Description Data Mary rce(s) Supporting Document(s) POC NOVA GLU 209 mg/dL (70-99) H [facility] ID Date Data Source [id number] 05/18/2020 12:20:26 PM EST [facility] Name Value Range Interpretation Code Description Data Mary rce(s) Supporting Document(s) TROPONIN I 31.00 ng/mL (<0.05) [facility] Less than 0.05: Myocardial injury unlike lyGreater than or equal to 0.05: Highly suggestive of myocardial injuryCorrelation with rise and/or fall ofserial troponins, clinical symptomsand ECG changes is necessary.ALERTED CRITICAL RESULT TOKATERINA([id number]) [place] [address] ON 05/18/20 [place] [address]10 [place] [address] ID Date Data Source [id number] 05/18/2020 10:22:22 AM EST [facility] Name Value Range Interpretation Code Description Data Mary rce(s) Supporting Document(s) APTT 31.4 s (22.0-34.3) [facility] ID Date Data Source [id number] 05/18/2020 10:12:24 AM EST [facility] Name Value Range Interpretation Code Description Data Mary rce(s) Supporting Document(s) POC NOVA GLU 303 mg/dL (70-99) H [facility] ID Date Data Source [id number] 05/18/2020 09:08:45 AM EST [facility] Name Value Range Interpretation Code Description Data Mary rce(s) Supporting Document(s) EKG [facility] HFLLLd4mRwZNPzVwe3KqVwDnPRSkRG5ojeq6U4R8fUZvN6EdzATze4jcP3DiD5ToKNQuMOAQWA3TkZHc jb2 [file] [employer] and planning/tkH/t8dujliJpvArBE7r8R1Jpk/Pq+2gjb7t/fhkR0nXPD55Wg/Kvs5G7BSbtzd+CJ/aY3Rrj0h17 81U992x4RfO43X3Kr2YPP/1sdvcA9Y9bWCiFMeAETq /MN14VoLjk0shG8WiCymJsZUEaS5Zq6/QkYXYw+qCieCxTH2CR1qf1/H2KOOGILS9L2NF+G22OdVW [file] kxkspduegLspqouZQCShameuWoWxFV867RTuFpqesR X5QbKE0Bnr9vV8ne2qHcHBHbfmDQLIzLBIYaMMY3eFArTMzLy5aZ7Ep2vyTcfYDIt2EPrEK4wylOzWvm DA3dB4adc5CBhWN1yqtKeJwm3msj1up2wKtM+oicfysg2+m93Q7LOANLhAJjdcq2tqlXggpgSaRBGImc KAQke7jVmxF1sdCwVNjiTyoxDbCCIt309vWtJqQc8K /U8RFAJpXvx4SDs39Ljf3pohBQjkGaH+55G70bwlunJPe4UIPJVqBxfJNt2vo/Ot8hlIEOzYhJPmqIw8 1Sit0ktfFVoGizOZp9CS5lvR5D/sZieuIdpV5L/8pYjCivnR3ruRTzrOodyTnLj2AhoBhtsJs3+Fx1Lf G4XARwnbVvc91bEauRtW7nRylMWj4ASxqYSHldtRDa hxw2a7sodvSZwSY/fOvRU3DQ1Bd8FO/JGg2nM0Sz24n+SsiBHBKvzfifAjuAfSQabzl5DdbN8WYXtWak 7B/ULQmHwyHN6iTQ1FFAquFO8LxOHgJay69THrcJQNccIa8EitW2e0hCppwEdgJcZgWQ9OyHyLUkZcGi 6l1gGCR9pKGhR3Jy5N5lWDp1XN7aWHv8PBGlRUw6Sq yyKiABUa7EcrZGqGwtJJD0zKA3PYmreqkFwJdK1XdZo8rV3Ha4YBigi14VChtxpJJHnTh6uvI+QYOU6O R9lJsrTI87vZhYc3c+ULtaDX6Jq8vX4DPSFMQfw+31dr07ZvOtEHtA/cuzx36qYt4temjVOFmMOX31Us lLXlPVC3R3WtsE/xkmk0k8Gk10YOgDd2YG+xVI/SP3 EJ3lReW2rzC8Tr96DUbRN4We27OHGqDK4NEW1erja8iU+Yk/PJyLpzP5zwZcATTZiyGgXnHxEZZJqOYV yW+aiO37yn1eavTQmepOyQz6DggIESoat5TAMaUb7BX50APzcRjcIOzXOi3ih0w5Gfagnw7ZapZE/ES/ Z2nvsmGqs7bqVtRzFodfM9AhoeJLDsfIaIzWTHqkP6 iSh9cTDjAlkypAWAS3FHegsViL3hZrEW7WJn1D4rOlrxLq/vcpAnF6dcd59bRqogY5KS4ua9JRtpKuHv BRu5j9BIt/Wsqox8tCxWc4K4dZf1CIrHO2mv7dKlfQ54T7saSImdEMeOT86vGTphk/kOlpY3KCnRXceF +VJwx4vbvUMBNx/TEHdskPCryfwU0sSE3rR3TQnr7A fqV48UjGE2Fo2WOPL2/FPcSIuYxY4GJMI8bVweKOFv74VhHPKEkK03vh2BvE+zQ9I9xzDJicLdBQdfyG m4LhoL8IVsTuqi0N72Zvj7gxBF3jz3Ji94LvNV9cY5WWjP7nS1/UZNPJYmWIO+816kx4dFuPv2dj1b3G ZjpZp8gFtx0lemfhye9mm+PYNO8rL5GCpOR2vBf0Y0 r0dS6mJlgHPVazw4mfiTy2ZzuWRhkmjDM/uYi2DuSGgWIq2EpzgEs/+Om1UaRozTEk/lEYIyKuQoy+AO R+VzcKFNqHAuQ2HzOClm+EUm5mWSNOHSNQtSJvpFSOhA6PHUSsNQvcoQvAdQu1qpbbacQRNX5tJ6YHID p/SOgyeGRxJwJbgVH4SyhOvdCQLIL++iyVQ336dfs5 lAS8MHbBa4mW1sYg7Ubopo7El8udMBC2R7iECjSPkV5XIXr9Mlyfw7k2UU0/tgpVDipcrq7qd+unIZEw 6zUlHR4TNbhicDy3zaQPaHFijRPXHF+13znLq5PhXXyGiGlLK7DJ7CrueQkrhEtxQuyIEL2wPJiaJjsn We8k+NExdPMYgNwUq9pHNgjeFuA591dtjYho9o6Rkd nWeHzRAvsao36z52yLZ/1nLuKKmT3mxbaNp5Jv7S9pmu0QfTHVmAA6adMjaKI+GXf+ZdEyJt21ku0Nrs oMkLLHzKCgN0qvZtvsOB526Mo4NVA+6zXL1IUHD6HNkpXMcExx/7WwdITBtTa6P/YuKxlHG+5CegM1t5 C4/mVIeqQVMs4Lkf7JjnEDnrUX4SBtJ6WD6q1q3R/Y QYn5C4fRYGtgtciZ5hRvC6/GU9yWuIZYSfwb65BNaTgPAEifIjdX30chudVzbzDHoC2kxjhSqfn60Fm/ OMsnSE8zWzENqDS5tL92AMLIOKLqjsL3W2S0iDMBypKtyiMYzgY2Lz6jDqKkrYMh0cszox48HGJQjlLy rJy6HNk+QfFg6KHFHfcjQHy5uQaOXxvSd/bCiX9Lmn pLo3fZar8DaXihlSLyME3FL2uIp1aQm5DW2s4ur//uv/+e//1V4B1pyI/vf/+5//63/+z//7P//9//3n f/q3a79090Z4s//9X+eKy2/x/Js0jwy5lfB07wJh8V/3W768z9U2+mHt6uweK/TEN9mSbDusgd/V6TzP l9dZA0jAlzsurF11sD8tn/Lo6dHCHcHq6vw56p1Stg fk766/ui7HV7NAi+via5bXD553FtDR8ltR+eM67j2GaGFFk024Yh84Brqncwlpvrft8eiL63nm+w5pOQ Pfd+X1UtX3IZYseWZxMPuwgZcdH/KWvnk1QWHI5aLCx+87NvLj+35mh9Ntz0TdsPuXk/i+U7s/J8bzHD 2w4fQ22dnIbo7tOxAM0w9aezFO7nkw60B6v/mM/Lv/ z9b7rS7n/wG3jgtt3fswS8bDV8j8F8nnTkYiTtYJgO/zZ7Bytt+NgN8tgZxH4hnm6/uuO1+d51/6zDyY fzrwM6A8Vorqn4tf+L6m/W9PkLu3Udf7FrxyKGz+qN4BQemrIQ280xqu8K2vRa1HzP/xbGivob3+fXhe j22iRSm/6/h/WeERl6tp8Bb4rqspq//rGM+Z7ckjwC mJxvccn8SSpp4+wnwkq3ONy821z+eN/L/3Bs0xcmMraeGi7wmGyuQ0h583tu5l+/vJfs+/4eo3HvDTUR pcrw4/Iq3cYqzXAm1g+mcehxxH/wErO6RG+Tfy7+6H/N297uqyZuv3Kjj+hYkp3fWsuY+eyI/07kT23P nfIwY7oIN64A69Yzk/fO7+69h8f33bY4k0YeNxr3Cc QZ3zWlXRo8KKFsLamskmM0jAz/SoQBd/3lUWBqSz0SPFa/ilv7AS/6QYuDQim9iG/bX3NxD+/xPn4O+5 TpG85redp1/tjVP/atwNhMZrua13/fTnGfXp//fxBPjrgu7UHTot1/xLz/seIq/fzqWQl+z911UD78sN nmYHg6Q/jP3F85i7/1TbWca5/qoY0nt+Zhc5X8HDZx gPyNmQ0/oUqi4c9Jk0pq143wxMe6gB6T3BE7mhbL/2KtqrrU+qDsWd2miqc20oLQ/kx/fV1jcU+pVCv9 KB9kK/5jZy9qTAW/lYPrV1RRQeZH/Yd9CxRIq0Kxf+2T387ZxiqbDJrG/A951ob+pXo47+pY5aOcHId6 amK/IPpA+kzw/NSAt0O4/ZHEP4y2jS9gc0YvG7Hfs4 9av9zCmngnowXf3Nw6g22D8N/eo+t/zUr+4z8g+lu42cvB+shzI5h3/2jS4L9m/8y3t37G/ttXw+7fXM g/hebxJeh32+UXUe16V384F+OhOtKys7tuM7Rb6o5yB+vnoX6HG4OC2tVU9aW4AbwXj6h0A0xI/VBt9R n0B6dD+kfnWf+8wGt5PmT5g98K9kxeyC/JivUr/K/9 Tx/0K/Um/0HQ1eCiXS6Ui6/BU1Kh0ztdTkR8365fB55M85sPsbW+XaER/VsikggH1n2WD7xuL/qvy9X9 QRCV5nomxlfE4A+bjy2iJw6B84J/qVRqCegfwb+YwC984/OtcuXrp0/t37/EKu3hBHfxrbw/Sr+4z1d0 /AS54XsFTq2w53ppdfy3AzNTo8LVpu804Wpkkh5z+v PuPr/fC2NSNjg/2Kfkb+gfSB/BPyJ/Iv5F+ojyHdIMdRH3/l7iamvGvX9qwdq6C2e/UajH2Ntn92lT9Y yUQnxmqZGs9vXHqlNY6H/BPpC+sidKg6usm3SyIp76w26z/X8BNPhT426Q5y4H5mKwixtpj6mmw+iu+b +oHVr14uRtokLpgAL6j+GtCvBuxXA/ywJz4mCC5c5q DjSO/rEKWI79T+MqK1ujA6e0FHa/Ihxk16Z/R+YUC/ChFluVMK9sppSTTgo6F435IEPGyc/DwXB4qjpy r6naIP8Iua0Gb9SIj/s+2TI/WrSu/20utBpHP1ob+k0xkQglggso/Z+8FzF+DUh2Nq1F3h9OSeJjp4EZ MaLYCmk0yC+49qUqKCTmnO7K/59ApIytJY9/dH2q8q /kZ644f6o5kmTMgcU2Ui8s12mj4uHcegX+3qK7GZfqi4J+H/GMqzmy9Hil26mmTg/e+360ZLe08P2d28 ++tvk1yp2b+Q2byWsIX2p6l29Iuav6SpuKwsJ/nMBb5w9aehuA2KZkcUA/Wro4+dmw1/iqHk81+6nf31 cepwXWvbdQ395TU7j15cYhooLiI3jw/zxjpM5r49/j tHv8p9+kfC7Mc2HR1ym2Cbz49b/EtnushR6nAPIK/32xoNgZh07NrE0Uclreks/Wrk8/m+9/iyR6w236 ngTdmp9cuss0Qc8jrhusMo+/8NzM+O1UxbBgox50r7OxHdw2GfFIeGkqIog5R+iG5ysNcT/JifA/NVbM cWrOWuW0Y+pAC4tG8OcyLB85koctI2PeByMQza3Q41 7+r1fS/kN+TH/Lx7/mr19cXu+/2xe/51tqj8ssdzs9/bN+qS1Q4hV59OmH3Sf+tR5un9/oxQ8U20/zu/ mcW9e2ksZh5f50LAX2rqOxP9NhCksQm+f+M6zRZ5vMD1nFb/3ym9/r6oU57ErhChMapPwSkv+syyC/nR XjGkG/J89z66C/Jzv5/PvR+cab/I90YekDoj/f7U3g 7V0r9yQXF0Kc2dc3Ke83+miq9pJ1P5HDex47B48zgPs1TuBg/ys9gvK4AvqJ+Qf6M+u+uT+lAy983e6E OFOQTpaG/iS1eXOBV+uh/GRDram/yNfI3di8KuTe8FO+xXE/rVxPngxPngHP3/TuhXc/b+uX6qT39bH3 TmMA0RytLf7SKB3q/PUEThKi5NP1GmcYik645aMnp6 A79jRFAks0Sbod7Danx4+3P1/miu3u/P1K/qWZG/197e5wfGA3v/ux9Wny/MtSB/KZ3euxjpwjwb+wz5 Aflo7+k372a704+B1ziqK9bk5Xgs03+i5opzfb6UrV+jd44Y57qQ+Ttjf0hUu7pF2H9e1Dk1jPY3xup1 48h6VL4x35vdEQkfF0O7/O8FLK969rgMCLU1YQ8+fq 9MbMABE240dumjwGfkoM6G0W+m4/k02yq31mF53Ybc2381D7goBx+geyIB99AC1vcDUR0mlwvanMG4d6 nzwRlob+M58tcvUnaQ+4UXdMhYHzqMK9ovACc9zq7+JWW57XT+BiNbfe1q+3NjPO/WJ+jlvK8kc4C+sh mzZ41bvM+7rB8N47NlbH5tqjzJ7T/trw0jxj5abA/9 N9bX/irr6/LP3FbvD+Y4zl49J7Uma6ikG91h67ufhO/cx9V9Ceu51GPjtBobukk2TP7DP+13ckwU90pZ 66AH8Y9kTi3/W58VQ0bqoP7J1QkkjJ/NTD/ibwSe317X2z/qufe/K+1X9S57/1VQpUpyN6Wn3Ykj3YfH Capf4tdyen024bj38yhxpl/Rryp/2q8qf+/3j5v+yz +6/ke/us+zcRYE8WE9U2B/m8+G/Ib8/fBO6NV3vni1sq650w+2VUI67Qq0DXCjXP5e5//Ew1cspj3/12 j/nUK0VC239eoWZ/Lc87b9aUFNYnsf+dde2yn/117Pf+DxWe9N6bkxSNkn03w/DPDn+N1163l+7Y2Ss9 fdjx8f/L8+knxed79/HXVtnG0pjIVHlXarH5m6kiyu Twj37kA9bxkhgu5gN0/K/qm1Ge2H+r+Dpynm166wI6h6JC/7z6Sy6zv0bw1p/41S19WvrR1mq+3Pa7W9 bkG/Ftht0Fv3/mrndJkD82SnfG7qi6ragJxuWzubx9gG69xF+zQtwL9zsKWOb5/LPqSjvWW/urNSC9cp vVq4Iu2Qi5faj2D+ZTtE1JS6Vbdq4ZiElq8W/L0eLU N7bUNO+9etPB+8z/3fea+/C/nMhsL0i48F49QB35ORY+T2TYf4Suym8vq8ydj9wf58eWF1CqWY0hw/f5 rdd86G41+8cs39gN98eT2mpdM96t1+os/7G8G7bdmtXaFU3nQ/m8+pb+B0Vcnp0X88ttH+31+qA35wZj 81baG38ap1AjMLm14y17qd6/5pAx2d2a/ImUhHezfa C/2nawY3y32cgV9Qz/ZufF/oV/Z1e+92oL02DIW+WrPdLolM1aB/vR25D7Rn8Lc4+bhTfm5f0vs3J/t6 b9KzCl94X/j1U5t2FsOvW2zA94KK56ZR1b+afEjv/EAOd9wikgpZ/AJmhs10bHztd235rO+pVIF9Hidc kO+Qg/WO9tqUby3c4Uln/a1f8vm6wlRlYH/5ynA+aN rym8cjM8eigQBk0Ek1vD9urBLRi/tZC9gUKvdI/3ZL+3W1wxkay9x7kd37m98Nia0iHRG54Jx7j4L0Z7 O7cO7BHo0lWEmV3xilRIaen7CekIC4DbnoUXhgxtzuvx0n9qNxs4bfIIypa3MP0dS+ZRPtnWjvnEifkI ZuUnoHWtrT9vrqpE61V/YrK/vHTbX1j4/dVq+/tj6k I0YV3LwoAamk6jkRaqq/tLmDX0o7QbahRZ/34XrpO6HU2X68CehQ/H0fx+YioyPvV3u/PDD6pwi5y6ik 81cfo9Iwz0zhOk4U/u1fgU2JZwKucMr14nGjpjnS87wyXM//S7O4v2wsK/r55TxYr2C7vqqYLhxKwKX2 +cC2AOoz52xwXakLr3E8hjA+1p8N/lqD3mcG5/4b5r 1fMNivzLEewf/KYL8y+F8Z/YcojC7Hc+9ukM9kIZCx5PRLL1AM3CiRP+tm2VlSkqvqGJw/q8ofkL+Rjv ZutBf+2bxsUx20D/1bCl6d28nHThdJ/6aqdI3ld73exQ/G+wwdc9E8+zMY/AuzJk1T/6QOs5Py02cr+t U5j/lEb41s5V9+lEbubhAl0LT8t7/ZqZsf/cpnyvm1 7mUfjVFxr5/3o1/tL/P/2pv7cT/61U0//u0j3/trr6+H79qwSkl2ofuDdfc/vp ad products and planning/iX49nT/8mTY7eiCVz 9dm1z077x6hvU6hQg+zM4v4vr+vEEt5rq+g4fSg6m3o2voDpVqq8K5WbN1s3t1g+RzraC/92h3+7y8Z7 e7/vuD/o8G93+Wq4ko8k0A38+Pi33l4D4n/q5D22gM suzQ0zB+3F/UHH/IMGl9og0ynK2P04fP17+Lc7/Nsd/u0O/ysf7R/rA+0t//YII4kfj/LR+yMfC/nxfY yvEb7aoyVLzDJ353461A2GU+0Hynz0p1W/8NgmKa18H2/4vvBv9/Jvr+guC7xrq/le14BjA+nt7+3wb/ eJ8Tz7/Nfh3+3lmJ2Bf7S/9n92+Lc7/Hz4yo1o8X/3 pUg/5lY0Ev3v3S0pr0W+9vf21K/i7l22Nd0fq0x48OmlG+EFq9eX6A62ttxA/t2gHcVbiQJ/dk/9qvJI gtq3t5yfqr9lr4f4w7fngvCjf/i3u/O0Ekp59/fok848+D0L2nwhU3N2zbw0308qpl9/b+pXOQagXzn0 K4d+5eUee6hp7Wn/arzj4UK/4/6g4/6gw7/d3ZDe+y L3Y5hxggxH4cqj1u9CT9/ve/T+47RSpha6/pHD/8rhf+XR+vUKuJastV3isroILfkwIu645ZmmI0c88z wuWAeL4hT21AT+6Tk6y45lV4s4xb/MC58r2oR5n/Ph74okL9AqiM/1vru35P94O/lDd8eaVVTF6Imi/Y X9KuB/ZBmvFZdkEutfpPnd6Sssds1ouC1973jD6/v9 +Gg2jhcZh+4m5dF8qb4t60Nn9Q7zZGs0N8I+G8pbZC7Gfv7r6h92JQQd+9+IxklXpE0iVyT/Ji8uInut vJ8TuGkKcFkBxfkQvbIAN6RV2lqL8xoNxgwO8eeQ0rbisHM8/ZFCe/0P7K5XLas/rP3QbiY99qdSrlOx +98o/6vW3akxY+rGsVmz8d37222/Ru/9J0I35X1jpY 2SuyN4LCV/CuhXMSbSJ+XdbKYvCo7F/1XA/joT613H//aA/SpG+4vGwHiG/Qlj3v9h2c/EFKT3/ZSYvR +XMOSn82XX/strG7KwmwRLy+hbXMC0yCxQP6kpl2J55tY7Z/P0vawJ5d/L7eGkXQ/2fG5/lYD/VSxF/j 7/jTWQfyB/445oUuStnI2CS4U2QbG53pjEA+ntzx9r K27cK0BlZekhidI9I1g6M8vaOh6Cv/tZcZ97vI5fsjGd+F+E6Z02sY3/I/FnRu4MU1tgX5nxVP+jX9k5 f4+pI7q460nmD/m/9nr+10e/glUZN5y/eeG8fxPslVf4S/pV+q5H+reffXQc/ltcAam2bRR0xAitYK9T b/+N2RCepKS/qvem/0Y+036G8QVkgZK9x6xzsmmsQ5 Vpyrm6Rfy/i/XKqMjdLMhd1R1UMWwzqEsUhJ+b0N7KCa1CtP8EYJQoaCrqJ3Nk4I79Kq7xzK+RjvVoo7 69Gfhu785+iBEyoqsa81V7X+Zn6FcB/SduGku4LrtbQocYPsO+7XGvaulHj9G+HCAqcu97wI+9Hm2cD+ 4FyJ1Kk1zH9L/27q/X3/21/Xl/E+l933l/7f+8P0O6 Zw5B2zhI81/3F8i/Uc/eH23p/f6Wvv+2hw41enApC7P0/m5vB4PF5pelj7/Sez1U7qJx3l8o322Ub0v1 khGzL5zH3DieR3bttZ/68549u6yq97256nm8vgXgnuO4ab+rA/fS6WqxK+2NTD/tvc9IP+1u8Pr33Q+n UCFC5D94nJ76ow1m89G9+zv1q5Q/0N7Ur+zXmq0yXI u0P/8eA+hcm8iea7+pX93n/l2LwL59wS1ashm42533TtD//97w8Gw77kCvir27ao/GRvyrjfhXe/Z5yp 2X5p6a7WfyS5FTMpqLUBY8Ld2Ij41C2so5fL2T4480igY/aq/eL+l9Ug8v4180W1kSWd4p9EA926D+1p 23jlx3ebp88w/xRAa3yTO4SY/cOB/cK5C+3U47W3R/ 8qlb02q8w296Zplwi5g3uR2djU3jCO3QLkirvB/NQyhHS9kiBEE1oSplrYptux4Lt5EvYdys2mqghfuz jskyBez8h20omA1uaL6/q+6Kn116JzuP+8Un8Y3DpObIFNipO3IN6qA6zg50a/dHOzCeo/f7G/arHYr0 tuds3B/raJ8w6L/cMSFnIT/+41H3qkCF0xpR4xp9Ro vpGanm2SI2+rxs77Y/4822777+P0YYuF4KF8GJmAM+Twila/b8zPqV/wQM7kFf58R+9tyO89/2/MzzsgH+ 3ZpsH7m8J1Bzve0hqH3l4/IJtgv4FH6ZhSk2ks+FUUki5JgrEHQOPMco15Xmldl/2PCPr8uRxy6776gB /EGwd/RE/HI9CbNwtABUtG94hsHMek/XzwRUboI1P0 +5JjPE9DFtWtwT4TrZl+4qxilCMkzxxnAQWBObu4sf8bckXIJmbTot9Sb7nZKHubRz2jb4TKUac5/ohB vFFjNXmT90krc4xX244kqooO1tMq0TPr6Fog8jpfZYvsNcy23z1Cn/zFuF7W3Ua/gYCd3+gZ/f7lJhfT EQ4htefI3x1p3a+x7m7/jzjXxB+xrm/5G7PTmw+04y olUQ7Yp22EjUfG/0f8+nUrxy18XRxxVxII/pFIAmBYnd4RJO/ifwT+96twYTpX0B/oSxE/Yt1d/h+BMI SyCTygsLDMt4g/BP+FidiW3+I7MXslFUT8/[place]/fSnFV7GdCBJj3y/gsMysR8F6PEe69OPgMb2+KcmJ vzePgaFG20AloHbztIUbojlBe0IRKX1DQ0O5CRWXK4 H1QWjdRAeIV4ql5Jsb+LTiNMf72K8zFHbUrz+lt0aDygCWqLPoa9uFQ9kBXThAsXG4wbif/0vD+C48DY B8Y+IHuOr52Izc/+WRp1dlWl+uLZjNVB7hoXjH5J0kEdXFRVYehdApn7zTySas2lnmPiP3/t4I/YbA/7 NY32KvLIWq9hKGEeYU8XKe7wBN/DwwQNDQN3uSLgYB Fb6hfWMT7aUIXswyeuDlSuoRoggrN6Fzjy1Gf9Iu5K4V9BIl+MfESo7aVyQ9yNbFwozyLsH8c4DKiWUu AozclhH+wgp6OG/hHsg40+Kaila/Yj+mdLjOGt0GWcZfPiKuXrFH+JtpnMXqn2YhmT/p/CxIgQSmNL4BI [file] AwMDAyOTggMDAwMDAgbiAKMDAwMDAwMDQwOSAwMDAw HDHlGJetGFIpPSVqMPCkGXTgFOHpIB9zBpBhFSAeZDG9DHMdFHFpRHCofrPGSANbQRMyBLc4HRMaNGNv PGUbJSdrIXAnODGtNCC6ZBOnVGFoOP8yRkMfXLDjJWT0TdRfALCwHHOmjvYTCFRaBYObLHX2DaCyUNZp EWDwDMctXIBrWXUrNApeWNXdCWTiBB6sUvCqELIxFO RmURngUPAoDTWhxnXAHSXxFJUeTFYzCvDyHACtJEDqYQodBWWgQOm4CMueYBTiPBByRC4mCwItGNJrUS W3FXfyZYDrHGHnilQVUFQqLARyHKtdRPYmOQIzXNFhNGoxIXSfPQQwEAQ2HQPoBOJpJL8iQbKyXQLjRH FqDUMmSdA8CiDiSvCIvVOaqCmxlwc3PMkqZ9r0ZZUa IWjqXV8webNlDBSoGlfyZk7oaRR5XOYjRtnBKe4Pa2KnfyW0fzJzBqWyFYY8KdojMHLLCt== ID Date Data Source [id number] 05/18/2020 06:23:28 AM EST [facility] Name Value Range Interpretation Code Description Data Mary rce(s) Supporting Document(s) EKG [facility] DFMWEv3bDpUMMyYpy0XcKbEgUYBtDJ3iuvb6K6M5jHXfH7BkfFEbl4xaX7VxS7SoTHTnELHWJN5AhYId jb2 [file] oi90s8bAhBqpy2Pzqn2otnviUijoiSD3gnd+b [file] cAEfBmqm8J7lF+atGq1q8Yjn/kMxD/tHcksMWs+ujOV2wQMQFl/cA34dvCS65DK+7TGDGge0r8s7/AFFIRMATIVE [employer] OFFICER+ urcbu+6v/Vqp9Xq/fJs4xmvqOe4mgT13Y0qP61owRh 6r+j8lbhGe7c1yrTmO2F/3cF4mM/FruKs6i48yQ08I11NwwSdiN4P+tz9Kp/7O5E6nmPvO/vLWUvk8tK jnzy/4QjqX9GER0xIU7xOMgCA+xq1/5ijK78eoxhhDFe/6rxewirS7dR/uf5s9lWksO/ZWP+6yztj9R/ 2ax6Qom6gTvtwwd6ytiU/oH8sR/t/yCynuXe00wjeb iBSvPkAT5VyWmdhjNW4orFaKwO9m+kGZL1o2id0hl0N1+cway0qEqPzM0awG5rj7D469/zHxVcF9n/I/ 9d+R/5BfG80kQNA+1t+faM93xv7v851eoe3Bhfz2/wZK92by/CI98I/oksTO6s/umhxwDC6dCkj401l8 L+9ywcTvP6dFyyyvTnlVyx/tr7J0/ct07/5N5iam0i n97L/DAnmlXcwy9uT2ak2zJcw9fcxyWC45fUO/inZwx/9BDsWOTK8/m/WTmdP13aE7jS9CVF/1We5/92 cHT90H8Q+WhmgsWv30cYMyjvJz4Ne4T9Oild+yrlqxwbKV/JpKK9/iFszCPshN71u4aA+mh2hAXG+Upl MHBn3luTu1bfv/klAmLhI32p776cjp4Z3a4J63HpWY 8lb/RZ+1FP+cqNg3Oj5jrXsLdu54pO/jgp4tEsbyfPQG/myjKwBe2l5seKt8Aq9oMqAN8n+DRI2Wewoi Fe+1FP+WpfDf+bl4XG1wrikxzKYmM5MiW1Yx4Xvmg4o/RVRE6jbRH6G99EPy62zhD657ur5jpxh0jk68 2yuCKJg13HpiPUo2l/yv/IV6qnl/x8Hmzc/S47gaQ7 q++W8FMdOk324hWwU25YsWwHtU7iv+hh4YPd262Me/Ixa8szEipa8bKvgoI4l4+Ldyq2OM1yhFEsVc7J x1Opus0Hi3ZggvBy8fSgbqqPdYdycOE0y/YqjiH/375gO725nHN3kFz76VIklsZW+QTy/7CXd5830rLl nEuOG9axakyG3nRdLSgrX4koxMwpCd3MaaM+R77yXG +PfKU+PPKV/kWgvZHn/Rjh0X0CzxawftkAdvQS/Zzph4yJGIqeqvJp8f2bmU624iyMp2+zixt/4/8e+U jeowO2b4tllqy7AH3CkDC6y9aGx32ouOG/K5movjNo7/k4CGD25Ww/F71159jtzf+y/sPa9tw6ptRuJa 5jDwr76dGcrlXNkiXfmDTt68lHXO7Tj44rlc8RpC3o TEVmAo9ym1+7CvX/+OlqReShAk11+0T0DpUa5CwieJWQ26L1g2fE3c9jWhm3muY+BbN4BvuLh82Qbuhv 36KqnnF263oYN04ef+iFoka71GhpiyPG7rd6WlJYzq3tbs/KPmwb+Ww1qg5T1IC64Rmu4qUCg/JVtr2X HTeMxtW3eW6A2u4Hf/sqbiUI8o/qrxTfkI+z2ShfnO YfiOqtxgZygE2Ev71JM+XtcGVCVorEq8AdEey+DdZwHDCLo9XEAreFwqFG6bdK+4j7v1K+rx42cf4pkv E9hU3435SxZo5fsB5R9CgtN/pG/Jq/78JA8vXmYvXDntTxdYRehs7nXoN49SvoC+qvzjp/XkPcclO+Up yJ/Ou8P1K+Rh7e5g0Vy9MAo57V+MdVi27Bteb9s5On FW5f/Qh4CB885YD2IvonMtaDrREC0hOyRh2RO/e7YQsTg+r8O6S/sldd8xqlh4h1iNAhPRe/yvGZ+qtz dsjkx2izhXhioFjCR43p7Y3miLQ/wnkDegQ0ojSc4MlHm6Vppjia1+9I/CSkWTXum22u/pvukhf91uMz n48ffEg0F2sH92/ztOH2Q+uwQSoh5Urdr+qvjnwyUn +F2Gpn82uq66KM/BRMaj8nvkhfEzLxc8cn/qgN3GDU6hXla9N/mSjZIcgpvfcV4mQ2hmn2S15KBExJSl zPqb/GXVp5o1bjJfizY+UqrQLuP0Clqmsa1JtFjlpr1/m1d+GoGfNP0iu7513HIg/49wvfruj5Mb7/5/ p02kidp366q/bm+l98PanR4Cz/f/XJOZXyVa4/gfm7 F62xTn5tbg3N/KVCcY2h/Y1n901M/dWQ/wnvuP215KxdkT76x2Z0VuiQpuB/4nUhWXj9FateKup4vePv mKD9i21hbd3xFO/Nr9ar+ZU+2wxI9Yf4c8Hn13m648b6VsaE/cL8av+jM49K5hpUa8ZNk16uFeR+UOXW +veNfgyp9l3N+9FstR/NvB/s+n7y+Fdp2WmwR7uGiF lEv3P5ZAS/pTiG/A2jdY6a+f3+29o5AhHckv+emIse8v2iys+N+tR4nnk/QRJ03LoIC/88e+2/573B7e a3I6d1yJV92//m/cOcgL2bSJ/t7SU/n2cGt0/7Kn5A1xdhxutK63Ng9oYc5+96B4FdEO3HiAkzhlCTe+ D/pnyV/+HUS0xiBIN/YU1wKPqkd/AY3wfFk5QiDOz1 o70D/txmO0EIqvd+b8pX5+w5J/9mjQXzQSiqPy0gJ1rAM9fFN+2d+X1bF9POILwXkcSCcroxy2hwagB+ C/rt0rpPhdnS/A715qJb9BB361OcWd4NE1lDb/9N+BwiYrDDUeu6qsrobPjD7l8zeuTUvvWAZ7h+mL+2 kE+d96fV/dG0ui+b0F9NK/0g8IxeJ0c6kwiCUby67l F/U3+aJDZg08Ga0y7Tb/pcxE635RD/2GEi4NhFEqdkDv8mrQDBhJ3vlLO2vmb231iAj0jUpNwTM/93ob 0L/3fh/66SnyfuB+fC/121/96V2De9Q0ZE/WhhPC+0N/VXih/131N/eZAxqu3GyXApjCK0IgKnSRoee2 yzWbgT5pt7a4cCvyX+s+mLmi5ljsZfOY8A342jMJ9g 4d0yIALZ1woT4jcPzRkuZsLLiGidYa673MTzEc2oWTcb6+4S71fakS+d9+fG/43tH12h64GvR15RwUUb 84506oG/a7Cylb9VxdX7fO6OncH/7pq/DxdVnZ4z0P+OQb/A6rs99CDek9TFF2cBPadVBr6Ta/FsnyGf uv+1r9Zn+icxnv3Eymps1rsfiD+NZ/y79lb740qcJs 0ua2Ax1o6z8kwzbfnhZerGs6jrcq2pioeN7imTV5O5D98JFeglzgJ6xRPnBv0A3qm3C8twfcOLxrhS9u 6Ur84+aL3O+9Zr/lqv/be0lu4V+nnqG6suwiP48xrm4q/ayJzvZea2imKCF5apDilNjk+xHohf+hzrNX +t1/h0QzcPF3LsGyBaQJyVk7Xxr4rFzwRb6rtnzQ/Z qPXKoL+zMVz86A/Iv+TYYcq4pIMMNpdBOvJ2oU7n4Iammw49LzoVf2yiiMZDqKaGdBe3MmjwgL6c+dlm oXevnx0rJrjbsCFDCLn0VDJBNa+5kD/V0wc10jR+Ojblx+Bed+mQ2f4hPY6bm/CV+R/7lkXrfpu7Bu2o X8XItL/46t98uoK/O7Nn/PE7p/yZ80cwmfbFnypJoC ++f+3de+X3L5+bbka59nbC1xl/6pltP/UA1d9Zjua8nykHr8oKqdGb4x/NJy4yYdyZ43BFWN/9e0ex11 1r/zWv86/bjtK14vJZ+0GlxfrsJW+YY/461mfH//WF/JbbB9Bf84n9szD9VGY/25M8GdL/WspX+q77bl ps3LBSToPri8nvzC6W6lVlgTpFlzGUnWPH+coQ6ny1 Ys51iawSSzLbTBQ5euCkJbsiPWSEzJOAeoZCreAZ8St/gfZCvrLAehWG/P3DN/Ip+tdu0d8dRH+j5GcL rSahq1miuQ4aV/jAcxrE67ME3Z2PjA53RCUl1WwRb/dE/vi/u/Ttxyj+cNZe06wjeI8lV3DetTkgnH/U v9rrX/1fT/hz0aofM/2r84J/Ze/fX6b0MY5i3yy+TY YXlNj64mLHD299bptWhoICd4pFe0p/nvJVZNpA/qXPcchX/jS2rs91NsJpzI3c/YanfHVkHk/3ehc62t d8pe+DJ9kn323O/spTvlL+hvj+5D1vaG/CC1xy02MwfIQ5s/LX6WY01TsqwgaicjIV42Aw9640N+9lz+ WyF8WroMkZjs6F0Mzw7m9yaj3ds6p/3QTjxu4rNU6j Qj5Z2II/Hforh/8Fo96SbRb24HUzjmN06IZgVH59QgMP6ioKLr000Vz5UeAwv0q/uufl9GA1Krgd5bjl Uc+hok2ephwY6g0E/opHQI73echZhf4Fp+GQrxzylc+Bu2642BSswAS+5cq7g06pnz2oit+yZ/BZ+5HP Ov/6XMh/If9A/CU3O9BiZPyU8gny1qwjQgb/jvtBN/ baT87J70F5dUhVzf+a3Ab5Nd620c1xXnEc2R/poi6Ctv5/0XK3m54X6wlspXG5chepkJEZWnixCghqL6 /7axhb47vT27aXbuB57Fxq205kD1981zWaZlUoWKf+PcMX8l+dOrIz8y8j4wS84A116Jzelg1a2L78oj zhC+3bYfIldsmg183w/sK+2ERuHwGJuood66vwj721 vjCeVyAc+oV5Xs10geNzMpVvP+y/sG/0iGiOGi08vS2HL19jiHcG+hrV31w07LoooHjoQ+e10JEeTkIB Dv2VQ3/zpra2w74Mh09/fWP+7rr/6kpzuE2PZW+hrqkvZq0Oo3u/8gyv+1/r7S6OE73dJn4GL/axLvv2 rMNCPTGeYd/usG/5YvH78qb75MW00Ozw+9AF+/YF+/ kF32RQ0EF2lSib60c1++ur+6J0sM6Wpk81ix74dz19it88+gq6thturkjRfr0/N/Lp4vyp6e6nPy0W+y aGh6XeolL67k95ti4A2qiBx45blTt4mRZ9V/k68RLJ5osQ0Rmt6rx1BcqFNXxsp345/nV2Yw5ppPdPsc 21xKb2nbYvFJhyT0/tkd/pc82CgKF0f8xhV17mL7Br W7233D/tjZbxf+317P+Lk6hCt0slwsnxlFG/6hnn/G8pt8rQv6BbHdUc7y+y7Wl/1TJOjeeV+ivFwf+F fftK/VXmOeo+NpK89ZqAz6O/Wqm/yj5P+8xuR5B30xW06uRKWctO6f/OgUSq9016RzVUtdbkugoClluv qml2v7DuvT3dsK0au2guRHc9WxKRemVfqFwm0URJ2f +uOZH/RP6G/A35e/XPdOS/6r/MWp/QCMTI7G/p5NxdewcIp/F+yLC83JMb987H++/C+8FlA/mgvbC/Wo b5a7U+o1Sxlg5G5gRW+yuVVfYbC/LVskD+uKIqkQ22nhHlp6yz8dhBQ9NT6kzg+tjlZW+0yDFE3Zcrvo w3lk/kg/QX00ZK45IUDycRzLFCn8J69GNG+qsML/l5 Qb5aq+7TOkHOk3M5DmJ+jR1UF2kn54GK/fOe7X0jbVhlGYYejpoD+aO9yxG/1CmO4Yg8TfXuZv9bxyjx lyD1izIxw5lNxpfQhSfowLYGtsXIC/u2CX3RB+SrFfi/MmwaNGiutQ6JU88s+5wVC/HH9WwTtqwZ+6u1 916karhmJdZvWdak01kb++c4mP2pli+8Uue805909X toWLgORujPcr8ZZ+Y1D42jNV58vJ8tZ+tVylcKr/qV4CE6XPz3UcdWQgbe2Po+Wq/m4ioisC/yZHwlb8 T2il0ggp02Uh62/b6LBwQ6FsU+UpxA/eO6T81ATfMpXdH7audiUaoBFuX9U87/Vt6KKiU1T/3fSPlK+a K6zSUxqq2PdF+JCg30xnKzqw+FrbSG4CeBo/NvtLKP qEywI4HEfJi7kvaz0xjMD/+6v47z7WTlj18/96fqEDjpx7trOCnnUt5Ut5DeyhxGDxrovqMTxkU/Yd8e aB4L5FgJaNbh0F97Nc2mnFD3gJQQdb8R8sHl3JgeoqF+E/tF2MI2ZUuTPyIouHk1JlT/Qwz8X/hnCPln jIWQ25T6OAhTW/bpmEw27mE/UUO0nuz/FbPsvWPW/X 2Yeo5f2cbPFK5rtqqDyD3vkA+BuxYVkqIl1k1nyi6k8DLt1a0yC9w5SBH08eK5p0S/LuNkQ4y6B8iA5f iP01YWdcPF64OAjc1utC2/YXX/H9gg5pGkah5gQjc/KaHs1Ez9C60YfYFupmN8smDnaX+O/+lTf57vp3 Ncq7OshcxED6PIX4t8cdGAfKn+8a55qB6Zqmlw+v61 d+bwZ09SMj9drLn403iiVjP9r4I1qxDTn8YFXc9mtvSuXh+9c5p5UWtZ9Hs96e+0b1ccq/pnRa1BhSx1 Sr8Rad+uOPV+Nelly+Pfv/jDia1GID2ckv/LRvv9/24gT+m8H3uapRW2G+jcJ2c8s2L0wbO+W3uXotmKmy [file] Km4TdhVxKOTyJHXDNz2Hp967QOHhUNEJRcz+KloaqTNkeOjvVQHBOQAbHISmIcIwSN3X ID Date Data Source [id number] 05/18/2020 08:43:29 AM EST [facility] Name Value Range Interpretation Code Description Data Mary rce(s) Supporting Document(s) TROPONIN I 25.70 ng/mL (<0.05) [facility] [place] Less than 0.05: Myocardial injury unlike lyGreater than or equal to 0.05: Highly suggestive of myocardial injuryCorrelation with rise and/or fall ofserial troponins, clinical symptomsand ECG changes is necessary.ALERTED CRITICAL RESULT [place]([id number]) ON D5 AT 0842 ON 05/18/20 [place] [id number] ID Date Data Source [id number] 05/18/2020 07:43:44 AM EST [facility] Name Value Range Interpretation Code Description Data Mary rce(s) Supporting Document(s) SODIUM 135 mmol/L (136-145) L [facility] POTASSIUM 4.3 mmol/L (3.6-5.2) [facility] CHLORIDE 100 mmol/L (100-108) [facility] CO2 28 mmol/L (22-31) [facility] ANION GAP 7 mmol/L (7-16) [facility] UREA NITROGEN 28 mg/dL (7-24) H [facility] CREATININE 0.94 mg/dL (0.60-1.00) [facility] BUN/CREAT RATIO 29.8 RATIO (10.0-20.0) [facility] GLUCOSE 288 mg/dL (70-99) H [facility] CALCIUM 8.7 mg/dL (8.4-10.2) [facility] GFR >60 ml/min/1.73m2 (>59) [facility] GFR ( AMER) >60 ml/min/1.73m2 (>59) [facility] GFR INTERPRETATION [facility] --NORMAL KIDNEY FUNCTION OR MILD DISEASE - GFR >OR= 60CHRONIC KIDNEY DISEASE - GFR 15 - 59RENAL FAILURE - GFR <15 Est. GFR calculation based on the MDRDstudy equation, which assumes a steadystate for creatinine. Est. GFR should notbe used for medication dosing. ID Date Data Source [id number] 05/18/2020 07:12:33 AM EST [facility] Name Value Range Interpretation Code Description Data Mary rce(s) Supporting Document(s) WBC 10.2 10*3/uL (4.1-11.0) [facility] RBC 4.99 10*6/uL (4.00-5.40) [facility] HGB 14.0 g/dL (12.0-16.0) [facility] HCT 39.4 % (36.0-47.0) [facility] MCV 78.9 fL (80.0-95.0) L [facility] MCH 28.0 pg (27.0-32.0) [facility] MCHC 35.5 g/dL (32.0-36.0) [facility] RDW 16.1 % (10.5-14.5) [facility] PLT 257 10*3/uL (150-450) [facility] MPV 8.3 fL (7.1-10.7) [facility] ID Date Data Source [id number] 05/18/2020 05:05:47 AM EST [facility] Name Value Range Interpretation Code Description Data Mary rce(s) Supporting Document(s) POC NOVA GLU 314 mg/dL (70-99) H [facility] [place] PERFORMED BY [facility] CLINICAL STAFF ID Date Data Source [id number] 05/18/2020 09:39:02 AM EST [facility] Name Value Range Interpretation Code Description Data Mary rce(s) Supporting Document(s) CHOLESTEROL @ 163 mg/dL (0-200) [facility] TRIGLYCERIDE @ 245 mg/dL (30-200) [facility] HDL CHOLESTEROL @ 38 mg/dL (>40) L [facility] PER NCEP ATP III GUIDELINES:RESULTS LOWE R THAN 40 MG/DL ARE SUGGESTIVEOF INCREASED RISK FOR CORONARY ARTERYDISEASE. RESULTS > OR = TO 60 MG/DL ARECONSIDERED A NEGATIVE RISK FACTOR. CHOL/HDL RATIO 4.3 RATIO [facility] INTERPRETATION OF CHOL-HDL RATIO CHD RISK FEMALE MALEVERY HIGH >8.3 >14.3HIGH 5.6- 8.3 6.7- 14.3AVERAGE 3.7- 5.6 4.0- 6.7BELOW AVERAGE 2.5- 3.7 2.7- 4.0PROTECTED <2.5 <2.7 LDL CHOL (CALC) 76 mg/dL (<130) [facility] PER NCEP ATP III GUIDELINES: OPTIMAL < 100 NEAR OPTIMAL 100 - 129BORDERLINE HIGH 130 - 159 HIGH 160 - 189 VERY HIGH > 189 ID Date Data Source [id number] 05/18/2020 05:15:58 AM EST [facility] Name Value Range Interpretation Code Description Data Mary rce(s) Supporting Document(s) PT 10.4 s (9.2-11.9) [facility] INR 0.99 [facility] SUGGESTED THERAPEUTIC RANGES USING INR F ORSTABILIZED ANTICOAGULATED PATIENTS:STANDARD DOSE THERAPY INR 2.0-3.0 DVT, PE, PREVENT DVT OR EMBOLISMHIGH DOSE THERAPY INR 2.5-3.5 PREVENT EMBOLISM FROM MECHANICAL HEART VALVE ID Date Data Source [id number] 05/18/2020 03:56:14 AM EST [facility] Name Value Range Interpretation Code Description Data Mary rce(s) Supporting Document(s) NT PRO BNP 206 pg/mL (0-125) H [facility] ID Date Data Source [id number] 05/18/2020 03:56:14 AM EST [facility] Name Value Range Interpretation Code Description Data Mary rce(s) Supporting Document(s) SODIUM 134 mmol/L (136-145) L [facility] [place] POTASSIUM 4.0 mmol/L (3.6-5.2) [facility] CHLORIDE 98 mmol/L (100-108) L [facility] CO2 29 mmol/L (22-31) [facility] ANION GAP 7 mmol/L (7-16) [facility] UREA NITROGEN 28 mg/dL (7-24) [facility] CREATININE 1.05 mg/dL (0.60-1.00) H [facility] BUN/CREAT RATIO 26.7 RATIO (10.0-20.0) [facility] GLUCOSE 293 mg/dL (70-99) H [facility] CALCIUM 8.5 mg/dL (8.4-10.2) [facility] TOTAL PROTEIN 6.7 g/dL (6.4-8.2) [facility] ALBUMIN 2.7 g/dL (3.5-4.6) L [facility] GLOBULIN 4.0 g/dL (2.7-4.3) [facility] ALB/GLOB RATIO 0.7 RATIO [facility] ALKALINE PHOSPHATASE 160 U/L (45-117) [facility] BILIRUBIN,TOTAL 0.2 mg/dL (0.0-1.0) [facility] PLEASE NOTE:Total bilirubin results may be falselyelevated in patients taking Eltrombopag. AST (SGOT) 66 U/L (11-39) [facility] ALT (SGPT) 18 U/L (12-78) [facility] GFR 55 ml/min/1.73m2 (>59) L [facility] GFR ( AMER) >60 ml/min/1.73m2 (>59) [facility] GFR INTERPRETATION [facility] --NORMAL KIDNEY FUNCTION OR MILD DISEASE - GFR >OR= 60CHRONIC KIDNEY DISEASE - GFR 15 - 59RENAL FAILURE - GFR <15 Est. GFR calculation based on the MDRDstudy equation, which assumes a steadystate for creatinine. Est. GFR should notbe used for medication dosing. ID Date Data Source [id number] 05/18/2020 03:56:14 AM EST [facility] Name Value Range Interpretation Code Description Data Mary rce(s) Supporting Document(s) TSH,ULTRASENSITIVE @ 0.689 mIU/L (0.360-4.170) [facility] [place] [address] [place] [address] ID Date Data Source [id number] 05/18/2020 03:56:14 AM EST [facility] Name Value Range Interpretation Code Description Data Mary rce(s) Supporting Document(s) TROPONIN I 16.10 ng/mL (<0.05) [facility] [place] Less than 0.05: Myocardial injury unlike lyGreater than or equal to 0.05: Highly suggestive of myocardial injuryCorrelation with rise and/or fall ofserial troponins, clinical symptomsand ECG changes is necessary.ALERTED CRITICAL [place] [id number] [place] [address] ON 05/18/20 AT 3:55 BY [id number] ID Date Data Source [id number] 05/18/2020 03:44:48 AM EST [facility] Name Value Range Interpretation Code Description Data Mary rce(s) Supporting Document(s) MAGNESIUM 1.7 mg/dL (1.7-2.4) [facility] ID Date Data Source [id number] 05/18/2020 03:15:52 AM EST [facility] Name Value Range Interpretation Code Description Data Mary rce(s) Supporting Document(s) APTT 34.7 s (22.0-34.3) H [facility] ID Date Data Source [id number] 05/18/2020 03:04:44 AM EST [facility] Name Value Range Interpretation Code Description Data Mary rce(s) Supporting Document(s) WBC 11.0 10*3/uL (4.1-11.0) [facility] RBC 4.95 10*6/uL (4.00-5.40) [facility] HGB 13.4 g/dL (12.0-16.0) [facility] HCT 38.9 % (36.0-47.0) [facility] MCV 78.8 fL (80.0-95.0) L [facility] MCH 27.1 pg (27.0-32.0) [facility] MCHC 34.4 g/dL (32.0-36.0) [facility] RDW 15.9 % (10.5-14.5) [facility] PLT 264 10*3/uL (150-450) [facility] MPV 8.3 fL (7.1-10.7) [facility] NEUT % 58.8 % (35.0-75.0) [facility] LYMPH % 30.1 % (16.0-52.0) [facility] MONO % 5.7 % (0.0-8.0) [facility] EOS % 4.5 % (0.0-5.0) [facility] BASO % 0.9 % (0.0-4.0) [facility] NEUT # 6.5 10*3/uL (1.8-7.7) [facility] LYMPH # 3.3 10*3/uL (1.2-4.8) [facility] MONO # 0.6 10*3/uL (0.0-0.8) [facility] Eosinophils [#/volume] in Blood by Automated count 0.5 10*3/uL (0.0-0 .5) [facility] BASO # 0.1 10*3/uL (0.0-0.2) [facility] ID Date Data Source [id number] 05/17/2020 10:42:00 PM EST [facility] Name Value Range Interpretation Code Description Data Mary rce(s) Supporting Document(s) SARS coronavirus 2 RNA [Presence] in Res piratory specimen by CHLOE with probe detection NEGATIVE [facility] This lab was ordered by [facility] a nd reported by [facility]. ID Date Data Source [id number] 04/27/2020 06:31:42 AM EST [facility] NT INFORMATIONPatient MRN Name Date of Age Gend*PT [id number] Tatianna Soto 1965 55 years F IPPT Location Admission Date/Time Visit ID Attending [id number] 04/10/20 2317 --- --- EPI ID CSN Admitting Provider [id number] Brittani Birmingham MD([id number]) Attestation signed by Brittani Birmingham MD at 04/27/2020 6:31 AMI saw and evaluated the patient and reviewed pa's note. I agree with thehistory, physical and medical decision making with the following additions,exceptions, and/or observations:Signature: TIMA Lawrenceate: April 27, 2020Time: 6:31 AM --Surgical Discharge Viviane SotoMRN: [id number] date: 04/10/2020Admitting Physician: TIMA Lawrenceischarge date and [...] Get Your MedicationsThese medications were sent to [facility] - [place], [place] [address] [address] amoxicillin-clavulanate 875-125 MG per tabletIndication for Admission: R groin infectionAdmission H&P: 54 years White or female, well known patient to thevascular surgery service with a past medical history significant for PVD andischemia, CAD (s/p quintuple bypass graft 01/16/2016), HTN, DM, COPD,hyperlipidemia, PAD, HERMAN and heavy smoker) has been transferred from [facility] ED with a right groin infection. Patient claims she was made to go [facility] ED by her home care nurses as she was having extremely foul smellingpurulent drainage and pain in the groin. Patient is not a good historian, sheclaims that the redness may have been there for about a week and the foul smellfor about 3 days. 02/05/20: Right femoral endarterectomy, Iliac to profunda femoral bypass [id number] ringed PTFE and Jump graft from the [...] and Wednesday. She was last seen by BLADDER CLEANER (Alethea Cisneros) in the cardiology office on 03/29/20 forroutine [...] right posteriorly.Microbiology:Procedure Component Value Units Date/TimeWound culture [[id number]] Collected: 04/11/20 0050Order Status: Completed Specimen: Surgical Wound Updated: 04/14/20 0817 Specimen Description SURGICAL WOUND Special Requests NONE Gram Stain Result MANY (>25/LPF) WHITE BLOOD CELLSMODERATE (5 TO 10/OIF) GRAM POSITIVE COCCIRARE (<1/OIF) GRAM NEGATIVE RODS Culture Result -- MANY BETA HEMOLYTIC STREPTOCOCCI GROUP A ISOLATEDMANY STAPHYLOCOCCUS AUREUS(NOTE) PRELIMINARY CULTURE RESULT CALLED TO CAROLYN ON [facility] D4 AT 1147 ON04/12/20 26605. NOTE: BIOCHEMICAL IDENTIFICATION SYSTEMS WERE SET UP ON SUSPECTCOLONIES TO R/O PATHOGENS. Report Status 04/14/2020 FINAL Organism BETA HEMOLYTIC STREPTOCOCCI GROUP A ISOLATED Organism STAPHYLOCOCCUS AUREUSCulture & Susceptibility Beta hemolytic streptococci group a isolated Staphylococcus aureus SAIMA MICAmpicillin <=0.25 Fjkiztmry9Flmblnmkscj 0.25 SensitiveCeftriaxone <=0.12 SensitiveClindamycin <=0.25 Sensitive 0.25 Rfmjetfdn1Zcwjucofvu 0.5 SensitiveErythromycin <=0.12 Sensitive <=0.25 SensitiveLevofloxacin 0.5 SensitiveLinezolid 2 SensitiveMoxifloxacin 0.25 SensitiveOxacillin <=0.25 Hwhxmonvt9Beg G (AMP, AMOX) <=0.06 Woraexfid0Qihbvfuxdsfn 0.5 Sensitive5 <=1 Pqxtecnow4Zjujmvtuylwi + Sulfamethoxazole <=.5/9.5 SensitiveVancomycin <=0.12 Sensitive <=0.5 [...] aureusMANY STAPHYLOCOCCUS AUREUSMRSA nasal screen by PCR [[id number]] Collected: 04/11/20 0050Order Status: Completed Specimen: Nares Updated: 04/11/20 110 SPECIMEN DESCRIPTION NARES 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 BY PCR Comment SEE NOTES Comment: RESULT(S) CALLED TO AND READ BACK THUAN [facility] D4 AND EMAILED TO [facility] IC AT 9063 ON 760310 XQ [phone].Narrative: NARES/GROIN/UMBILICAL FOR NICU PATIENTS ONLY [facility] COLLECTION MGR LOCKBlood Culture Peripheral x 1 Set (2 bottles aerobic and anaerobic) [[id number]]Collected: 04/11/20 0046Order Status: Completed Specimen: Peripheral Updated: 04/13/20 115 Specimen Description PERIPHERAL 2 Special Requests NONE Culture Result NO GROWTH 2 DAYS Report Status PENDINGBlood Culture Peripheral x 1 Set (2 bottles aerobic and anaerobic) [[id number]]Collected: 04/11/20 0041Order Status: Completed Specimen: Peripheral Updated: [...] intact. No edema.Neuro: AAOx3, answers qustions appropriately, bill cutter strength equal b/l. No grossneurological deficits.Items needing [...] Name Value Range Interpretation Code Description Data Mary rce(s) Supporting Document(s) ID Date Data Source [id number] 04/15/2020 05:35:00 PM EST [facility] Name Value Range Interpretation Code Description Data Mary rce(s) Supporting Document(s) Laboratory test finding (navigational concept) 113 mg/dL 70-99 [facility]) PERFORMED BY [facility] CLINICAL STAFF ID Date Data Source [id number] 04/15/2020 04:09:00 PM EST [facility] Name Value Range Interpretation Code Description Data Mary rce(s) Supporting Document(s) Sodium [Moles/volume] in Serum or Plasma 144 mmol/L 136-145 [facility]) Potassium [Moles/volume] in Serum or Plasma 4.2 mmol/L 3.6-5.2 [facility]) Carbon dioxide, total [Moles/volume] in Serum or Plasma 29 mmol/L 22 -31 [facility]) Chloride [Moles/volume] in Serum or Plasma 107 mmol/L 100-108 [facility]) Urea nitrogen [Mass/volume] in Serum or Plasma 19 mg/dL 7-24 [facility]) Creatinine [Mass/volume] in Serum or Plasma 0.96 mg/dL 0.60-1.00 [facility]) Anion gap in Serum or Plasma 8 mmol/L 7-16 [facility]) Calcium [Mass/volume] in Serum or Plasma 9.0 mg/dL 8.4-10.2 [facility]) Glucose [Mass/volume] in Serum or Plasma 246 mg/dL 70-99 [facility]) Glomerular filtration rate/1.73 sq M pre dicted among non-blacks [Volume Rate/Area] in Serum or Plasma by Creatinine-based formula (MDRD) Laboratory test result [facility]) Urea nitrogen/Creatinine [Mass Ratio] in Serum or Plasma 19.8 1 0.0-20.0 [facility]) Glomerular filtration rate/1.73 sq M pre dicted among non-blacks [Volume Rate/Area] in Serum or Plasma by Creatinine-based formula (MDRD) Laboratory test result [facility]) -- NORMAL KIDNEY FUNCTION OR MILD [...] Laboratory test result [facility]) ID Date Data Source [id number] 04/15/2020 03:17:00 PM EST [facility] ([facility]) Name Value Range Interpretation Code Description Data Mary rce(s) Supporting Document(s) Leukocytes [#/volume] in Blood by Automated count 8.0 10*3/uL 4.1-11. 0 [facility]) Erythrocytes [#/volume] in Blood by Automated count 4.62 10*6/uL 4.00 -5.40 [facility] ([facility]) Hematocrit [Volume Fraction] of Blood by Automated count 38.4 % 3 6.0-47.0 [facility] Erythrocyte mean corpuscular hemoglobin [Entitic mass] by Automated count 27.7 pg 27.0-32.0 [facility] Hemoglobin [Mass/volume] in Blood 12.8 g/dL 12.0-16.0 [facility] Erythrocyte mean corpuscular volume [Entitic volume] by Auto mated count 83.1 fL 80.0-95.0 [facility] Platelets [#/volume] in Blood by Automated count 243 10*3/uL 150-450 [facility] Erythrocyte distribution width [Ratio] by Automated count 14.4 % 10.5-14.5 [facility] Erythrocyte mean corpuscular hemoglobin concentration [Mass/volume] by Automated count 33.4 g/dL 32.0-36.0 [facility] Platelet mean volume [Entitic volume] in Blood by [place] 9.3 fL 7.1-10.7 [facility] ID Date Data Source [id number] 04/15/2020 12:35:56 PM EST [facility] Name Value Range Interpretation Code Description Data Mary rce(s) Supporting Document(s) POC NOVA GLU 113 mg/dL (70-99) H [facility] [place] [facility] BY [facility] CLINICAL STAFF ID Date Data Source [id number] 04/15/2020 08:43:54 AM EST [facility] Name Value Range Interpretation Code Description Data Mary rce(s) Supporting Document(s) POC NOVA GLU 215 mg/dL (70-99) H [facility] [place] [facility] STAFF ID Date Data Source [id number] 04/15/2020 11:10:00 AM EST [facility] Name Value Range Interpretation Code Description Data Mary rce(s) Supporting Document(s) SODIUM 144 mmol/L (136-145) [facility] POTASSIUM 4.2 mmol/L (3.6-5.2) [facility] CHLORIDE 107 mmol/L (100-108) [facility] CO2 29 mmol/L (22-31) [facility] ANION GAP 8 mmol/L (7-16) [facility] UREA NITROGEN 19 mg/dL (7-24) [facility] CREATININE 0.96 mg/dL (0.60-1.00) [facility] BUN/CREAT RATIO 19.8 RATIO (10.0-20.0) [facility] GLUCOSE 246 mg/dL (70-99) H [facility] CALCIUM 9.0 mg/dL (8.4-10.2) [facility] GFR >60 ml/min/1.73m2 (>59) [facility] GFR ( AMER) >60 ml/min/1.73m2 (>59) [facility] GFR INTERPRETATION [facility] --NORMAL KIDNEY FUNCTION OR MILD DISEASE - GFR >OR= 60CHRONIC KIDNEY DISEASE - GFR 15 - 59RENAL FAILURE - GFR <15 Est. GFR calculation based on the MDRDstudy equation, which assumes a steadystate for creatinine. Est. GFR should notbe used for medication dosing. ID Date Data Source [id number] 04/15/2020 10:18:04 AM EST [facility] Name Value Range Interpretation Code Description Data Mary rce(s) Supporting Document(s) WBC 8.0 10*3/uL (4.1-11.0) [facility] [place] RBC 4.62 10*6/uL (4.00-5.40) [facility] HGB 12.8 g/dL (12.0-16.0) [facility] HCT 38.4 % (36.0-47.0) [facility] MCV 83.1 fL (80.0-95.0) [facility] MCH 27.7 pg (27.0-32.0) [facility] MCHC 33.4 g/dL (32.0-36.0) [facility] RDW 14.4 % (10.5-14.5) [facility] PLT 243 10*3/uL (150-450) [facility] MPV 9.3 fL (7.1-10.7) [facility] ID Date Data Source [id number] 04/15/2020 06:25:02 AM EST [facility] Name Value Range Interpretation Code Description Data Mary rce(s) Supporting Document(s) POC NOVA GLU 268 mg/dL (70-99) H [facility] [place] [facility] [place] [facility] STAFF ID Date Data Source [id number] 04/15/2020 06:24:57 AM EST [facility] Name Value Range Interpretation Code Description Data Mary rce(s) Supporting Document(s) POC NOVA GLU 208 mg/dL (70-99) H [facility] [place] [facility] [place] [facility] STAFF ID Date Data Source [id number] 04/14/2020 08:35:16 PM EST [facility] Name Value Range Interpretation Code Description Data Mary rce(s) Supporting Document(s) POC NOVA GLU 153 mg/dL (70-99) [facility] [place] [facility] [place] [facility] STAFF ID Date Data Source [id number] 04/14/2020 07:06:43 PM EST [facility] Name Value Range Interpretation Code Description Data Mary rce(s) Supporting Document(s) POC NOVA GLU 92 mg/dL (70-99) [facility] [place] [facility] STAFF ID Date Data Source [id number] 04/14/2020 01:18:00 PM EST [facility]) Name Value Range Interpretation Code Description Data Mary rce(s) Supporting Document(s) Special Requests Laboratory test result [facility] ([facility]) Specimen Description Laboratory test result [facility]) Laboratory test finding (navigational concept) Laboratory test result [facility] ([facility]) Many Beta Hemolytic Streptococci Group A Isolatedmany Staphylococcus Aureus(Note) Preliminary Culture Result Called To Carolyn On [facility] D4 AT 1147 On 04/12/20 [id number]. Note: Biochemical Identification Systems Were Set Up On Suspect Colonies To R/O Pathogens. Report Status Laboratory test result [facility]) Microscopic observation [Identifier] in Unspecified sp ecimen by Gram stain Laboratory test result [facility]) Many (>25/LPF) White Blood Cellsmoderate (5 To 10/Oif) Gram Positive Coccirare (<1/Oif) Gram Negative Rods Organism Laboratory test result [facility]) Organism Laboratory test result [facility]) ID Date Data Source [id number] 04/14/2020 12:57:12 PM EST [facility] Name Value Range Interpretation Code Description Data Mary rce(s) Supporting Document(s) POC NOVA GLU 245 mg/dL (70-99) H [facility] [place] [facility] BY [facility] CLIN[facility] STAFF ID Date Data Source [id number] 04/14/2020 10:34:08 AM EST [facility] Name Value Range Interpretation Code Description Data Mary rce(s) Supporting Document(s) POC NOVA GLU 216 mg/dL (70-99) H [facility] [place] [facility] CLIN[facility] STAFF ID Date Data Source [id number] 04/14/2020 10:05:33 AM EST [facility] Name Value Range Interpretation Code Description Data Mary rce(s) Supporting Document(s) POC NOVA GLU 146 mg/dL (70-99) H [facility] [place] [facility] CLIN[facility] STAFF ID Date Data Source [id number] 04/14/2020 09:41:10 AM EST [facility] [place] [facility] Name Value Range Interpretation Code Description Data Mary rce(s) Supporting Document(s) POC NOVA GLU 119 mg/dL (70-99) [facility] [place] [facility] [place] [facility] CLINICAL STAFF ID Date Data Source [id number] 04/14/2020 08:44:06 AM EST [facility] [place] [facility] Name Value Range Interpretation Code Description Data Mary rce(s) Supporting Document(s) POC NOVA GLU 42 mg/dL (70-99) LL [facility] [place] [facility] [place] [facility] CLINICAL STAFF ID Date Data Source [id number] 04/14/2020 09:37:31 AM EST [facility] [place] [facility] Name Value Range Interpretation Code Description Data Mary rce(s) Supporting Document(s) SODIUM 145 mmol/L (136-145) [facility] [place] [facility] POTASSIUM 4.2 mmol/L (3.6-5.2) [facility] [place] [facility] CHLORIDE 105 mmol/L (100-108) [facility] [place] [facility] CO2 29 mmol/L (22-31) [facility] [place] [facility] ANION GAP 11 mmol/L (7-16) [facility] [place] [facility] UREA NITROGEN 17 mg/dL (7-24) [facility] [place] [facility] CREATININE 0.69 mg/dL (0.60-1.00) [facility] [place] [facility] BUN/CREAT RATIO 24.6 RATIO (10.0-20.0) [facility] [place] [facility] GLUCOSE 39 mg/dL (70-99) LL [facility] [place] [facility] ALERTED CRITICAL RESULT LIOR([id number] )[place]4 [place] [address] ON [id number] AT 0908 [place] [address] CALCIUM 8.8 mg/dL (8.4-10.2) [facility] GFR >60 ml/min/1.73m2 (>59) [facility] GFR ([facility] AM) >60 ml/min/1.73m2 (>59) [facility] GFR INTERPRETATION [facility] --NORMAL KIDNEY FUNCTION OR MILD DISEASE - GFR >OR= 60CHRONIC KIDNEY DISEASE - GFR 15 - 59RENAL FAILURE - GFR <15 Est. GFR calculation based on the MDRDstudy equation, which assumes a steadystate for creatinine. Est. GFR should notbe used for medication dosing. ID Date Data Source [id number] 04/14/2020 07:54:48 AM EST [facility] Name Value Range Interpretation Code Description Data Mary rce(s) Supporting Document(s) WBC 10.6 10*3/uL (4.1-11.0) [facility] RBC 4.89 10*6/uL (4.00-5.40) [facility] HGB 13.2 g/dL (12.0-16.0) [facility] HCT 40.2 % (36.0-47.0) [facility] MCV 82.4 fL (80.0-95.0) [facility] MCH 26.9 pg (27.0-32.0) L [facility] MCHC 32.7 g/dL (32.0-36.0) [facility] RDW 14.5 % (10.5-14.5) [facility] PLT 264 10*3/uL (150-450) [facility] MPV 9.1 fL (7.1-10.7) [facility] ID Date Data Source [id number] 04/13/2020 06:28:21 PM EST [facility] Name Value Range Interpretation Code Description Data Mary rce(s) Supporting Document(s) POC NOVA GLU 164 mg/dL (70-99) H [facility] [place] [facility] CLINICAL STAFF ID Date Data Source [id number] 04/13/2020 03:34:00 PM EST [facility] ([facility]) Name Value Range Interpretation Code Description Data Mary rce(s) Supporting Document(s) Vancomycin [Mass/volume] in Serum or Plasma --trough 14.9 ug/mL 10.0- 20.0 [facility] ([facility]) ID Date Data Source [id number] 04/13/2020 01:05:22 PM EST [facility] Name Value Range Interpretation Code Description Data Mary rce(s) Supporting Document(s) POC NOVA GLU 120 mg/dL (70-99) H [facility] [place] [facility] CLINICAL STAFF ID Date Data Source [id number] 04/13/2020 09:06:17 AM EST [facility] Name Value Range Interpretation Code Description Data Mary rce(s) Supporting Document(s) POC NOVA GLU 97 mg/dL (70-99) [facility] CLIN[facility] STAFF ID Date Data Source [id number] 04/13/2020 10:34:51 AM EST [facility] Name Value Range Interpretation Code Description Data Mary rce(s) Supporting Document(s) VANCOMYCIN TROUGH 14.9 ug/mL (10.0-20.0) [facility] ID Date Data Source [id number] 04/13/2020 10:34:51 AM EST [facility] Name Value Range Interpretation Code Description Data Mary rce(s) Supporting Document(s) SODIUM 145 mmol/L (136-145) [facility] POTASSIUM 4.4 mmol/L (3.6-5.2) [facility] CHLORIDE 105 mmol/L (100-108) [facility] CO2 29 mmol/L (22-31) [facility] ANION GAP 11 mmol/L (7-16) [facility] UREA NITROGEN 15 mg/dL (7-24) [facility] CREATININE 0.68 mg/dL (0.60-1.00) [facility] BUN/CREAT RATIO 22.1 RATIO (10.0-20.0) H [facility] GLUCOSE 94 mg/dL (70-99) [facility] CALCIUM 8.9 mg/dL (8.4-10.2) [facility] GFR >60 ml/min/1.73m2 (>59) [facility] GFR ( AM) >60 ml/min/1.73m2 (>59) [facility] GFR INTERPRETATION [facility] --NORMAL KIDNEY FUNCTION OR MILD DISEASE - GFR >OR= 60CHRONIC KIDNEY DISEASE - GFR 15 - 59RENAL FAILURE - GFR <15 Est. GFR calculation based on the MDRDstudy equation, which assumes a steadystate for creatinine. Est. GFR should notbe used for medication dosing. ID Date Data Source [id number] 04/13/2020 10:02:33 AM EST [facility] Name Value Range Interpretation Code Description Data Mary rce(s) Supporting Document(s) WBC 8.1 10*3/uL (4.1-11.0) [facility] RBC 4.72 10*6/uL (4.00-5.40) [facility] HGB 12.8 g/dL (12.0-16.0) [facility] HCT 38.9 % (36.0-47.0) [facility] MCV 82.4 fL (80.0-95.0) [facility] MCH 27.1 pg (27.0-32.0) [facility] MCHC 32.9 g/dL (32.0-36.0) [facility] RDW 14.3 % (10.5-14.5) [facility] PLT 235 10*3/uL (150-450) [facility] MPV 9.0 fL (7.1-10.7) [facility] ID Date Data Source [id number] 04/12/2020 09:17:53 PM EST [facility] Name Value Range Interpretation Code Description Data Mary rce(s) Supporting Document(s) POC NOVA GLU 218 mg/dL (70-99) H [facility] [place] [facility] CLINICAL STAFF ID Date Data Source [id number] 04/12/2020 08:29:50 PM EST [facility] Name Value Range Interpretation Code Description Data Mary rce(s) Supporting Document(s) POC NOVA GLU 231 mg/dL (70-99) H [facility] [place] [facility] CLIN[facility] STAFF ID Date Data Source [id number] 04/12/2020 06:17:48 PM EST [facility] Name Value Range Interpretation Code Description Data Mary rce(s) Supporting Document(s) POC NOVA GLU 264 mg/dL (70-99) H [facility] [place] [facility] CLINICAL STAFF ID Date Data Source [id number] 04/12/2020 02:41:17 PM EST [facility] Name Value Range Interpretation Code Description Data Mary rce(s) Supporting Document(s) POC NOVA GLU 182 mg/dL (70-99) H [facility] [place] [facility] CL[facility] STAFF ID Date Data Source [id number] 04/12/2020 02:13:49 PM EST [facility] Name Value Range Interpretation Code Description Data Mary rce(s) Supporting Document(s) POC NOVA GLU 148 mg/dL (70-99) H [facility] [place] [facility] CL[facility] STAFF ID Date Data Source [id number] 04/12/2020 01:54:14 PM EST [facility] Name Value Range Interpretation Code Description Data Mary rce(s) Supporting Document(s) POC NOVA GLU 62 mg/dL (70-99) L [facility] [place] [facility] [place] [facility] CL[facility] STAFF ID Date Data Source [id number] 04/12/2020 01:44:14 PM EST [facility] Name Value Range Interpretation Code Description Data Mary rce(s) Supporting Document(s) POC NOVA GLU 43 mg/dL (70-99) LL [facility] [place] [facility] CLIN[facility] STAFF ID Date Data Source [id number] 04/12/2020 09:17:43 AM EST [facility] Name Value Range Interpretation Code Description Data Mary rce(s) Supporting Document(s) POC NOVA GLU 101 mg/dL (70-99) H [facility] [place] [facility] CLIN[facility] STAFF ID Date Data Source [id number] 04/12/2020 07:42:40 AM EST [facility] Name Value Range Interpretation Code Description Data Mary rce(s) Supporting Document(s) SODIUM 144 mmol/L (136-145) [facility] POTASSIUM 4.1 mmol/L (3.6-5.2) [facility] CHLORIDE 107 mmol/L (100-108) [facility] CO2 27 mmol/L (22-31) [facility] ANION GAP 10 mmol/L (7-16) [facility] UREA NITROGEN 18 mg/dL (7-24) [facility] CREATININE 0.80 mg/dL (0.60-1.00) [facility] BUN/CREAT RATIO 22.5 RATIO (10.0-20.0) H [facility] GLUCOSE 83 mg/dL (70-99) [facility] CALCIUM 8.9 mg/dL (8.4-10.2) [facility] GFR >60 ml/min/1.73m2 (>59) [facility] GFR ( AMER) >60 ml/min/1.73m2 (>59) [facility] GFR INTERPRETATION [facility] --NORMAL KIDNEY FUNCTION OR MILD DISEASE - GFR >OR= 60CHRONIC KIDNEY DISEASE - GFR 15 - 59RENAL FAILURE - GFR <15 Est. GFR calculation based on the MDRDstudy equation, which assumes a steadystate for creatinine. Est. GFR should notbe used for medication dosing. ID Date Data Source [id number] 04/12/2020 07:17:18 AM EST [facility] Name Value Range Interpretation Code Description Data Mary rce(s) Supporting Document(s) WBC 12.1 10*3/uL (4.1-11.0) H [facility] RBC 4.62 10*6/uL (4.00-5.40) [facility] HGB 12.6 g/dL (12.0-16.0) [facility] HCT 38.0 % (36.0-47.0) [facility] MCV 82.2 fL (80.0-95.0) [facility] MCH 27.2 pg (27.0-32.0) [facility] [place] [facility] MCHC 33.0 g/dL (32.0-36.0) [facility] [place] RDW 14.4 % (10.5-14.5) [facility] [facility] PLT 231 10*3/uL (150-450) [facility] [place] MPV 9.0 fL (7.1-10.7) [facility] ID Date Data Source [id number] 04/11/2020 08:57:00 PM EST [facility] ([facility]) Name Value Range Interpretation Code Description Data Mary rce(s) Supporting Document(s) Vancomycin [Mass/volume] in Serum or Plasma 28.3 ug/mL [facility] ([facility]) THERAPEUTIC RANGE IS ONLY AVAILABLE FOR PEAK AND TROUGH SPECIMENS. RANDOM LEVEL RESULTS MUST BE INTERPRETED BY THE PHYSICIAN. ID Date Data Source [id number] 04/12/2020 08:27:39 AM EST [facility] Name Value Range Interpretation Code Description Data Mary rce(s) Supporting Document(s) POC NOVA GLU 212 mg/dL (70-99) H [facility] [place] [facility] [place] [facility] CLINICAL STAFF ID Date Data Source [id number] 04/11/2020 06:20:28 PM EST [facility] [place] [facility] Name Value Range Interpretation Code Description Data Mary rce(s) Supporting Document(s) POC NOVA GLU 251 mg/dL (70-99) H [facility] [place] [facility] [place] [facility] CLINICAL STAFF ID Date Data Source [id number] 04/11/2020 04:05:00 PM EST [facility] ([facility]) Name Value Range Interpretation Code Description Data Mary rce(s) Supporting Document(s) MRSA by PCR Laboratory test result [facility] T ([facility]) Specimen Description Laboratory test result [facility] ([facility]) Laboratory comment [Text] in Report Narrative Laboratory test result [facility] ([facility]) RESULT(S) CALLED TO AND READ BACK BY MILLY SUNSHINE [facility] D4 AND EMAILED TO [facility] IC AT 0444 YA [id number] [place] [id number]. ID Date Data Source [id number] 04/11/2020 01:34:14 PM EST [address] [id number] Name: Tatianna Mcintosh: 1965Sex: FOrdering Provider: BRITTANI Shook Prov: BRITTANI Mclean Provider: Procedure Performed: CT ANGIOGRAM ABDOMINAL AORTA AND BILATERAL RUNOFFExam Date: 04/11/2020 09:11MRN: [id number] Number: [id number] Class: : CT angiogram of the abdominal aorta, pelvis, and bilateral lower extremities.Indication: Discoloration or erythema; Lower extremity; Bilateral; Prior surgery; Surgery date: 6+ months; Surgery type: Graft; Additional info: Josue lomas lymphangitis of groinTechnique: Imaging protocol: CT angiogram [...] adjacent right groin. Prior stent within the [place] superficial femoral artery which is occluded. Femoral [...] Name Value Range Interpretation Code Description Data Mary rce(s) Supporting Document(s) ID Date Data Source [id number] 04/11/2020 12:28:51 PM EST [facility] Name Value Range Interpretation Code Description Data Mary rce(s) Supporting Document(s) POC NOVA GLU 182 mg/dL (70-99) H [facility] [place] [facility] [place] [facility] CLINICAL STAFF ID Date Data Source [id number] 04/11/2020 11:53:52 AM EST [facility] Name Value Range Interpretation Code Description Data Mary rce(s) Supporting Document(s) POC NOVA GLU 93 mg/dL (70-99) [facility] [place] [facility] CLINICAL STAFF ID Date Data Source [id number] 04/11/2020 11:40:21 AM EST [facility] Name Value Range Interpretation Code Description Data Mary rce(s) Supporting Document(s) POC NOVA GLU 57 mg/dL (70-99) L [facility] [place] [facility] [place] [facility] CLINICAL STAFF ID Date Data Source [id number] 04/11/2020 11:24:52 AM EST [facility] Name Value Range Interpretation Code Description Data Mary rce(s) Supporting Document(s) POC NOVA GLU 48 mg/dL (70-99) LL [facility] [place] [facility] [place] [facility] CLIN[facility] STAFF ID Date Data Source [id number] 04/11/2020 08:37:03 AM EST [facility] Name Value Range Interpretation Code Description Data Mary rce(s) Supporting Document(s) EKG [facility] FUBPWt3dAdVBTwVbt1XgRvQiFEAlVG9hrlt7G2E1eIMtU5VwkXTqg6xtR2GvK7JmHSNaAISGMD5VaIVs jb2 [file] vp ad products and planning+spGBWjR60CC5ySho52zRqj4DSywm9XbKGSqPTudtEoKvN0soSHLG8+VQ4Jn04EgPs8kqneWO55meh [file] QQbWRBlQtMqAslmGkIIDtQwcqGVsUpQUJeWQckjxfW FmpXFdIyhxlTEpoWRMh/GiAGyklCHINZsajRtlaV2sONVRYUiFPWVhRlJmQszkVFHyJugqMLggwTSsbG Rgis99ClzJ4C3szMgVop6gAg7zLNGyuIB7qPKX1sFcqbZWNKmNCIMRkTTvcvHjtkMNHXrQivWlXQuOyz UG4SFKfLV5UV9GeYQlsRveNFQYR7SDNKDimzIaAJYk evajEYlIwR7nSCkMPgEYpogDmagIojlGzXdK1fJ7zqESvKG9VLu7iyGSfRbOxIjhL2w6TM6PpGKd4t0N L5Dy4Chv41Zt30AJOdyYZdBhpYN/NwziBb6/bNGJdZsuTchRs6QoEV6CbGg5+9DdKtB7qwTF7/HHyTfp AV9S5qD+i9lOtGC4rMlJ12AwgnDJ/+pD4gX+1WTEC/ w0AZxXlDqHE/KvnTm1xn01odqbVQZ7ScLQ45+Hhsft5QXC28amHj9FG/n7+sz4WOXtU0+/2X/wRUoIHo WsyWUuxsoLNv9Nf+CXGQkLO55IUnLNokwhPmZyx5IswONS6n2XjQsY7YDZQIegAvAOSjYWA9SeKRRnEn EzqCI0FiFcYBRewYS25D3MiIQmfnh4LGiDnTSQufFs Y28Jzc6wtF9qtC9tbqOXetQH6pM8rY5IMMBD/a/LJ97T7/ue/uo25PcD/Oe///Ct7F35e1++ma9FPhUr Bb/1+nUfY8MIxZDdFZXfpGmyKXyWkSsrKvyr5qxZmnl3RgOskg8Xhxca61Zzmjo2srOcNkk5zln5gtYp Djy3qmj1pfQt9HVoq2c0Ruzt0i6Obus2A7Xnlm7Cwe hoj8aPggoe8lmar0tMgtql5pyeq7xQdpF/yhT64XYsEB+E1wv/lw/Q0x2nsqg4ZDgwFB0E2zd+Q1My2C y6KifcbIqkLemY1PfgTeoB9nmvK711xxpU925kfmL2q6Vwdf5ppGnkAwMz7xPHf6OrIkMj8cZUh5JmQw Os2QzmvyS3jmqrYO7vdfrP51odYkU5mbXAsQjQQtDk IS0WfZdZHeQrIN2ZtLcAQnFsW732so2sokUMrU4dPJ6lpVUG47ViHB/wWBFi9IfhZ3K7jkRWt5ChovRF ALSb6JvvifSy5prSuxt1LjVltn1Gsjpk06Kzyjv38kFJk5TqRjAb1yYUi9EpPhVo4rFLy1Sgz2w3Vftk 6f3Hwje0D0Oeyt6PtbnmP3ZcAM7NvJsHWmPiTC6YkU bTWaMzYL7EertXPAvmPO9GZ6LXS//Xv/bbslnnv70oFeod7W+WbAvZkZcil2c4bF7CcGraEN7HG5tsB/ eF6C2sm5JuT4Gkcn+mcUftmuRy0tw9Ej9sUc+C/cWsm8S8c8baJfcfkQT/oL+jI/8o/fC5TIC4L/Kjvw M2GJT38j9CCv+aTU9p885e52dUMe6pnf5/fg/dH4y+ /AY+3l+3xuWvRXVbhn/p289H/dNH32UR/3VMpXw8T0WoMVvP+Je+jQyDF7zlm1AIv9/7NoEXH47/wXv4 l940+P/6+nzR7OfGX/vEHv+pVbZm/l9/d/1El4Ckf5Ila2/+E/y//rKx40tm7bCQS94sr563/Z3R5k+d sxRqCr3xmV8f3uxA774o2/L+neZrfkWyPg87CKd/cS 4Pf/8ojdzfY5P8/BIjJ2IskDx/vxL1+v8b/8WS+r8cVuf/tfz/zbD/vyfDUmH/f0M+y//fDBvSrfJLaw i8v15uwinFinVI/D6eLcI+hu3T3Hoxx7khfxGI/v3wpF97SdDL+Q/8GOTf9ioD10R/c5g7ajbNt291kw 49wGcifSId/d0L/SU8Upt8k5Mn2Ljwmv1UOcO2B3Zp +Kzi1Ou2sao+Bsjpeow1B08uYgssl375Lb2zQ/qrC+mC/Ph/Uk30VJ87SdMK+oVNvm92az1b0qtNnIf6 /dz8H/fHL5A58z+ke39j/d9l1j62fbHMLWBqq78Haq/9JKZ99kxUpn85aMXF/L1jXYmDuySlOCNC7cz/ daSPar+Xal4N8HU/zGVvbYK3LQgrOpCz01dhSWi8fw ej3eXv8vg1l2vVP4FX5j17j728N4u0J/n7zNwT/XnmC9f+648zX/pE/sIb/jIz12d/tXmQtoMVk545m8 96izw+tc9N9Vc2Momk/sTba3v0l7+xR/otfUb7eHTPfg8hC6pUxwkq4W6hmP/7Uebx/Si83ji+uuGF9I N4l686IpvoU+lff2/46++WDD+c4K8vf/fxdwDJ4e2D /vRS9/Qn3qC5lH/r+SfAdS8v/7U5HUqRbfQ+C+ny8Iw/t/oPD004ng/19tvf/f1aw5SSp1GR+xvaZcdX L1x8Al/giAISqJOJrl33Fl9/6xIsNS4lnINJMs+Paul/+Sdp5HzpsYj/kx9mK719ZJRU++xou4ne4jMJA jqt9Dk511gSw+CgsqFiVqzDID4NzaWJ/oXzpE/kX+C wtC5Gddn1rlk8y5pza98cv91A/5gpll4hhkclGsr5eRA2Lf+OrHBtS+FgyMj24uiUW5Cr9Jz+H11uRMi a1ryw8JG3VtCg+qpHvGt81q36s+TtY173H3s8/xprp+Cpwvj+K/OFhDzu+tg2UVr4N8gdFq/q0prUilu PTZzV5G93Tha1gSSrbE91fUL3k/H0yFTMkec2p6nI5 pqi0aV5/3fFVynBjPDu+mwTRq1h8nvpMeMtLI5P1fmdYjWyml5M+6vzw1qqwnjL/r8C09zj/M4x0rf/d 8dUti/29lspfwG7Jmw1qAK/VV1gK4jQY24cQ46wEQi+P5Do9D7uA59T70/jqpm/kx3rl+CrnneOrXPfO qXnk+Grx8DMQnO20k//r+JfNajEroz3n3tMB/dHx1V oZ/tKTj59/U843mwnmDxg+5dIEv5wy3uLk0455GcJ//8bnU/Adu9jZC4/9tl+fXx++2ju+Rn65lfrM9v 8x7sBg/oxxW/qeaq77CQvZG3Upf1Xsh9/a/dJBs3PRg9JOH4T/eDy4tw62145UYu6+evEnnxHhN6/97W LOR3+6mP+pv1zM/8UfLua+7O8Wcx/4N7lqdI9gBAEA b/iTxZduyO//b+ONgFPQkfYUZLw2w2Of1QJfW+JaoS4baAF/CsntPVWdJvwOwgMhcV6WH/ob+OqGK/9A qySjWrs750oeQv1IWLo28M+B/ga+yvBC+gIfAX/0N/DVDYO/Ve1mDUKESwjm8u6Gb0Pysu6G/kJ/NSf+ 34n/quswdHK0FDc1V7tyo+L/TEpXSVCgy1jEssi8yN a+txK6lbczck745u8N/D0V5yrpGqNo6G2Jau2m8cOastl+KuQZ+izxAz0N/Pgeh6NgaVt1+OD/XejvUu Q/1F8DpePk5hsnGrYD+ivor6C/nq899LKOC7VsgDos9K2I+n3u7MlGNt/4m8Lcg/xJYe4j/cHxmr6O+H vKl95Vza7wBj57ORryPfrsY06xdk++JkEe4cF3aFaf 8J2idQL/Ap/YB1ZA4n8ce7DHxm4TNzt7E13YwI6/vq/VoWgMFwxjhbBnhy5nGuvUa9SvPP83Hl9Nu53G HgTYsseF6z44AxN0mwNfz7iiYw9F/oE7wIvVD51b8Hf9yDEdSIW/A19l/fF3TwFNcft3L/kX8i/kR38D X2W9G+kb6Qo+WvI/6K/jq5T/LV3jK4I83NowB/gqw+ kn3Uqkzi48uH//r02ko7+G/pogvyA//l/byI/g3Efk9SqtjXB/wx8lJ4w9/s8s3jrnhh+9Pz7+8O+FR6 s3Y5gcxVUgkSy8zluV8EQ7Uosc4n9R1/9YB40pr+Z1gznyS+u2YzUvyBfim61nK760p+7I03cm3eu+nO +LY0Jiz71/5bvt7/X/+kO+HLf+ji/Ngj1FV7+n/oov Mao/7ddkE9uqevbihB/Y622eyo17lX97Z5cq1E/7Dgr5l9W/5llV4rLkf4A15U7Ozl42Bp8OfKPnl+Pi Oj1/qTjk1aqz9+/48aC02u0/8KnRE4LQ/b3eC5+Sj+OrOL/2N35Eg3vyfc9v0fYQ1jN3uF9+D4Y84/tg z3C1x/HVLTuRvpB/JMmLm3E9gt/r/7XjqxdGfgUfBX /0N/PJbWV9wmMr5Gg0d+cq/bIbty8A+D64Qn/EW3nnWP1P6aX/Q3+V+Pgyu95bdQHh+Mh2skJlvsMubc okJp5743s6lB/hVbjmkeOrzO/4Ktvg+MoRbMWeNYR14kqvabK47F8Ioq8++I245ySHM//CCER6Pq4w/e Aimtm63V21xDhhi5cYXA/621Ql18HjV5v9904t1dA2 LvYnd/mN2F/q4WntY4whtzq79SzJ1J6i7fsgZBOt+2ZML25hHV/HV/NE/q+/Z6Qfy4hz2fvh0d73yyHO dJ+/xzPOQ8ivqPn+ddKZ9NWJ1T25a/H/Lt0C1vMhELNoJm/Y+P80fuSpcgu7rgBt+FqmAP3H6T83+r6/ Ye3ROKLukv4U/LunWiTYkjdCk7sAt1ti0t0a/irGc+ BkoUXZlOrzJNi1CQLW+Ggghhx3Ym0XwKVdjrlL6jM4Hmqy71m2T/FWgaS1dC0WetmilAT5AydxT56lor jvMfDB+gl4Cpmt2G/gqxsuPob+Ph7SIKGYVFp+Lo1enOdYbl9r/z6Gg50nIdC7rN9mkAcX+QdQ9ulDiH To9WBMY2gckeg/fkmr/kobSK//V9gfyxQtpZYJKran X/hKWuFJaaWPlabgo+BzwOeg/cSjloRCfK81CRF+xc1B7eJf+ljpA+dLbqQ1WewdAbeY1DE+Pw7t1jdb 1PyoRd7Wbhm/7FquAFh96kn9h8xtK3/1tiPPBzjSZ2qmL/3F2+7SMVkw350guO1WKqzJgiSVB3sh01YE rjwiql3i/6K9MtbWh300UsP9Ljh0upI7G9xo446Gdp b7iqmArjF/J28BCpAzxzG+VrzOoipd7J/gg/5O9HfW/FZ65Z99o+L/nXX+xVM4wgN/K85xwkldVTV/C/ /plq5DGsj67J8i/J8W21cjfethl21qU/EPk6mpufV4LJh9KglppP/FeZ6rIB+92aGI4F/tzM5th4Er9n +kL/OOdlJ4WmSBHzBv8tJ/IqlmfS3u4i2446nro/Q5 skufIxvjeaO/G//vxnje+U018Y9J+I90egBN/EP4JllbY/MLYo0EKX4d+yC9zr+K70JN30Cked5Pfx/d ft2b0J0zUf4UtWR4JYca7+g0c2p4MiPNtzF90jez/NHvEggU3foSKcU3ZeJMYgJ0MaI7yYSanG/k1Pdf OXU+tzZNWmMZ8FD8TX9LAS4yTZ+R3GK7GQ5YlxC4QB J1ZuzurOFkmTD/ga/yXLxubS8OcBEtjyXBenFKQ2o3CoJrSjjRu2u+Cb9X8WA1uyW6UaW3gRt+X8N4Ns xfU+Q/4I/miTjkm02d317+/+3B705987oigI/3yW30PaYO/7gLR7VzDe+89enu5LO5PJr88hfhC/go8h +k1/co5Xgzdmzjd6a93gjc+E6S6B06pY1qcgv02g2+ 6s09snqmtruDkmQy+Vp5UwgYpCNiQLk3gxnN0/AOyYUjj4wP/q+/Pdrv+Kpnnq+/bUbbvvOv+Tjf3c+/ 2ebv/KsS/V5t4jy52wc5VV26cW39n8xDHwas+GpkHj//Bn/VY1LG8hS/jt8UYv5KEP2g0hkg/jq+WpJh ue+1lnZxkKSd0+Aetf/lwm286J1bFf6Nhh26vM/H98 HIg/tXG/ev9sT/E45TW6s5h6G6H+yRfxb/+D6Y4bh/gFIdXfIN9ZwXa7UDol/um+15kI7+oyrP0BGVg8 J4oT9pJhFX42TERm4NShpdNSZi/Z2mr7h6YE0gVYRjJQ+oF/6T45B4kYdkppr0lu3dthYouu+d009tsZ 4K+qpgJ1Ml+rpbc5Q85p5jeptok1/5fTDCG+nor6C/ okhHf+UgHf+e5R0w7twl63i8g1hnZy4x6X32ds1b/55IR3/4Pyh2wwNxcrI2ut82ot/dW5G/7m/sXfc3 4a2gh6oc5wu927i0je+8mv5fkbwTKxvYH1XZ2uBFN42n8g5x5p6Sn/fuDCN/fe/2ZfSFN/Ng7IpUj7c/ kL/yK6w8aT/uM+yD/p19c9JUL7q8233rWI3pr+5T37 t3cDm9QZ0X/t+S4agBbUMU90Dnw8g0lpDsxOXsL8IEaY+Q5CleIgkwJNX9V47YqJxZ/R6w71an+5Pb8d XNj/LVIxME2GjxyAN/Rv7LbzCv/nQDaCSSxe2hmx2r484zk/xO0sj7n9nvsX5z/3z1aqv+altIr/1Icf 0Lj6FD2h6X0A6K8V6O9Q3H2V5J5H/KKpMrt4onu/ve 6htJ2b7g79I2vxLms4bn8bbEiklvU+QitS4K64lz87a2Jh65Z248LybOpHH87AfifH/paEjvlX/UfWAd xKm1XZCXqSY/jftXLcPgL+WwOH6lo0o6Jf7t/SD/RoqjAj4JnvYAK7RM1on4280WMhm/zxJ48oujkGaT Out+bh95p3bl9meT/QzbpK7c5Ovf9LB7n36GvuD7iD Z6pi79VLRh28C9US5ni8GVeO57t9OXaARE9CvOZQJt+hyF/wlEn7JcbjZrHp8MusbceRoHq04q1UA5YA 39VYYN/Ft2gdm2P/gq5CB1/5sj2l0z5OmUK+8FLh4OkGH1/7eU6Dh3LwEAvPWxea+lspGuyI/xLAfpB/ zx/ncP62U03uFmicYxaGuzMhhAyxLYV1M0RchGNpF3 o7+NutHR1w+u9wsa+CrzK/Swiaow62N/N2shFrgWrv8PnhtwM3/LtKM9O7rQ+hn6e7HXR3PgQ8kPgbP/ 7gOrYjyH/sbHdir2IlVUC6nCyiwbZSb3qgebtm12/M5Arkwiw5403Rwo1fc7SmLqaD/zL38W+AM+adbi OxfH/GetNA3O9h5e9fYH+uGrHW/L0MNYXlLC4L9/W9 Tr+KrH+Ls0qj2xqXGd/2kwDh6pvXMUi/hRvkwg43d5H0mip7mysqO/6tG20l/aNQ0PEq3vWe7/1+q+qF aeu9eWX2OyAaeEN7O32VmNl6zmEV2YN5jup0vm+4IqWs522u6k+9VvjuRCy0K4H/Ib6rWX/wS+uuGH80 /eTy2sNU9c70W0Gu2o+qL9wSjLb7/osmwR6oGpI+kb 6Qr+Ow9W9Vy6Zl10/zcke0kVR/4LS8b3pYg/wFeZH/1G21HTZbB/Kt4jW91PZ4yA/gS94Xn0syp1vaxL 2GU5k1iC763+Br4K/dU4IDt2Cs+5p2ZG37yBU/qb81D5wXS0HwDY+GALINA/ga+Sj4C/73oqkdePOys1/lrk tvbzLdijB4rlUKsHe64B9/gq+Ti+emGk+6jMUzB1AK yGJ/EP3Y2XZ8wv36AmNTN/I7+/c434tyxPZ7bJP6k3Y9/MW9jBqWw4I7st29UDvw6w+qv4vxb+31Xn/b Fzj9si26+u7ncyIr/OqvcLJ++3R/pGeuHJs+p8dEJ/dcNIL/3kWXU+HyVqeiZ6PcV5RplLGt85Dmb4J0 igvzoykb/23yN1/x1SXd2ZmBwunEQcfu0bl9K/gD/6 K+zc4KtaVw3a/d0d+Us/efZA/ghpdN12goBW667+bkF+QX70d2/wR3+Br85Gf/dBfgN/q3TF/7f5ywT7 Vfy/iv4q+wf0brG1XVe6cbH9IkVO/qr2mgjJxvJc/2/gusW1JJ+hX/W++vm725X/B/09+H/PQP6B/Wendy fMb63govdfp3PjfA/ujSuO7a/wZ/BX9F/wC2g0P232 E0W8luqv7M+pvMfDAu9CfL+SvM6BkIrbEZ7r7Q0eQxm3BlDk4VzIDdA+CrTNeGMNIP+GD/[place]/VvpJa9 [file] g9m6x2MlEOFTZQOCxJck3A/Or3ZXZXJvuOUSOBZcnR vV7tH43ZYvNKAooPIg7Eap2hCtQFo8sW8XjjbSsrObWCdXXWl5Yof/WzoCdOtV8Gno9yAXpO1G8ui76x cEOBov0mmS/INTERMEDIATE TEACHER/ktocy5w9Ryop0fzLfkIghZzgtsqXn9n5EN6B3hne04gkDS9qAP3hrrJrPqGifo0Yl [file] paula+cKo3qb7Gl/qH5sdNdqaPZ/8t3BBXGSDfnbPDle6Kq04reMpepk2KY3bKFYjaNF+dR/pjudkMFKUM lDLA/toddler guide/vooUi4Kvv9PJ5bgQIslFJFKluey40myWSGBBnHOhZkmbFeI7VeiQ0JOtl7rycYoAEb3S5dH B1DhCC7Q12VjUebn/bJlkFH2dGHbQd/pj+VGNrlxLh iX9SHbORrmT7BlkhwusWRFUF5oPoAzC+JdEQ4LC2VwNOaIGVGORqeR/qfhSlE9SqvL923I068j/LHcfc XhgswNjsb0hTankgvlCEXaFoyvbk2cP1z8T7Wql04Ww9V+STSs2GNV3H4iz/mC2Npun8Gfy/zozMbc45 WD/lhG+wO1GIoLlq8XRyrUprYFzLP6L7kONxg+wUh/ LAYrKk4vsaAAbOq0oCo7jzwCLrLei7o1S/2f0HgmDVRMTQVgKdMjwxrroj8V6KAQScoEC/2xJDfYxRnp j+AIHiy5aW4J9XOE8K/s5mXTq3AETTDB7QpJVMFzK7N/ruuunLWOkWrHMMOuhlw6AF1NWeNaQQHYV5dn NuzijPDHkoAp/mP5NU2d3FjWXorWno5m/IN18qjT7e e0PMZ8mIQyUcthfXdbLo3I0Rjn1s4uEaeTLASNY/yxpNIi/OYQyJKJE1ObYB5JHvmT+/HMzi1/w3Ep3x jNuWP2SUSdoCkg9kPT2z9yDUeD5ZoCu4Nmn7VukAgYKvmmzrBy54nGcUb5LlWRB2gKH/+tALz3MggOBL X7tgIyj/5YxoDfvpH+WPJfEGDlgffOI/yxVATjQDgO dWLL8hXI+FFWdZf0ebKrD7G/cYQ/mgqEMNboEVlC88RP/cQR/tgwGzsSUIOCGG8d4F/lUQYpkxScmUbY Eup0lrFKqp8qDwcYtbbJOvyvNUytZjgARisfNUzFG0M+4gh/WIPVW6LDhJJEsaP4B3d4H8nb97OyunGE zdJEBRHVolEAf2QPiou/I/yx5JE0/RVhxrnbpR7WpX RwC/uJNzJIwdk5/DO7loO7aUeDldBOlG96gl/Kb5pMJrhYxtZkZA9nWOoJ9mvWOz6u+AQrqHL3011Cus aoFMaWpKfVhInFfJpXLSqnK4OBeU8ggINSJMui2VQqJUAHuXkZisvCRN8nmdWXZbbzRakPI2FPwoT/hD +QR3M6KY2fFlIuwkE03aRa6qPN460l6d5rhJxnCGhu dGgB760s/mIeOx7lVLVwORt2U3opjOmjFaLXe/rESX1i+fG59LuMVAhzTX+raRDOEhLeCzC6TYxZce6T eWUwZ9d/LLEH0x/MXJ8vEQB6rXIWDzPq7+mQ7GsXvvCbiZ1JK8dVAiiaOemwD8dPOCLeg8WFfTgBUtI8 t1BQxbQjGgcJFBtJPWRzPZDYCwxns+Vm4ziA/toddler guide/l brHOpI57Y3Xk2o1CoPUBdJ6skMXvMdPL2VOJuXgwKUgbw5uejqJWEE4T1gwKhXucuzB4wJI2T/lptNWI +UyoiEBzqLHQWG7BQNLIqqvM7kyjceea3ydP4QigUpHMOiCtkolRKXclzWDHIcPC+E40AoA+A4OWRXjs IkTgx/LAkWwh/LXW4F+SU0elePUjUQbjvF1wHRQ182 lNEYweq/xP4PL5Q/nrzWQHbcecFaDwZsf7k17mri9urIhmtFL/1wLJjtS6dz/rUES2S5SNl/US5mcL1w Uih2wQvLNshYIjemnJBoGCWf1k2+mP3LHpXr2A2Wvc7PzkK55ROT8xo9J5tE5iRvm/oP2WaWt10Im2r+ YBWC7BmqovBJFM+Y/lheBP/k4w3Krvmvbo7VgLg7gd HuI5K9Kw85ztoX2LJLs9DM5ln28kwbZ0hkN0VKKJtJ07MJ890O003lEIOy3Sc20vomdX6CJR9hA5Zf1K f46La0jwyDRVGyStCnKhDtQ1QnT5PVO4nOlyUXVuFo/bHEIA9/RNjXMqop6V6T7HoJP/GkrfLVMEc3L9 lrCuGPJY//5E6opFMZ5LkFDmt5e5PjfGxelBwuxzpp w/2jdT9X5l2PmqVJ85oJpujU+3GO3bJnqvzY6XVSniopuwWiwiE3Rdx2Y5spHJojYEr0L6frj/gdjGyO 46WMUoFbTRoIj6aXZT417l36m6EuzLxW/czri7kqgaeVO3flAL3l7U3zk+NxNG9UwbBBtrbXSFPbJ44e GMMrod1ew9smBuCVMo3PSwSFGv3LTbxvneNFHnAghH O4hTFSJ+rL3tGM0qSVLXSxjm4/FSlJqD6B/vhks6rdJzNXNDWngf6/LI+bXXFYchX271hJsqsaoRO3RW kA9I7KYWFlfcK+SCjbmMPMQiEZ6Z/uQFkGHR4NYgZVgbty/NC4ImydsT2B+3gSmEyWroWuyuUgm0gEJt RDV1jfGOREU8wXFqYEv4GvTKbky3TIaAG/AJ2DNnR3 g/THsjMC/HD6F7vxCxrtC4ybljQUVuMBbmnJjG3TBexhZADDEqQtUhnfMgpYe8TAEgeEYLDmsG6DHnwJ WlLeiIIUvP4whhPos4YCBrnnEPBHJz8cW3y/ZIkHyxtRGVV3sIZUjqmmvx0Ktt2zTVHPqkx40X/lLuu6 AOCJ0s9Drsqw/CAchHO7lPf4P0bNmdBZTQhBfJtNJ3 kNGIL7yhDfmpr/PUPnAJDqNtN0ejPluft/VA0zvpIixuNedBp8NjN8CrcdrYoHruZvL/pjXhYL2OhZTx k4N6Y/ywqRwHZm0MK6pOZBnVUV/O68+H304rvhHd3EjqhHtHuqr+tWyJruelOUA4tOrLNzB4Yt2SC+WL Zh6RwLLTVxzDcGUZZAgaerF70mxM44PGoHsu/LK3NY xkgBRgp/LDnrwx/OloX0MlW7fIndT2NB71Jqh/JKCAHO0PTFgOyLYNPrG8FANVPemq+WipBCGXTcSwt/ IGqo3TkBQTjwri0a6SeL+XY4GhGYICZJ0JxP43X3O4h0YbprXFBHDBn3fHdcm3AdRNLWBJuPoR+4g3H9 sdyIvCNc+eU1dCcZjA+LPAaU37JY55CB/IuW1Byto3 ZOjWxk2MvuweRL8sCctoOtduZ/2wR4yd6cv+W9Q4j3zw0XBjJEpxeY9W8pWusgn+VKZ+AgNnwkcSs0f8 2qpT9J2gKB4jIGS5mucQhFlTDybIHVCHqCWeON8JhmmuQKsHTRdAHR2q2D9h7Wirs3TbofecmdXmqIxO 7ZjeLnDabR2p/NXoucZlcfz1LrNdC8GRar+rV5WOD3 ODjVq8zjL+OX9USJvZQzDiB+Es3rYPi5oxU14miGS2pdHJu/LPnsKfyxpNIi/HWip7gnnnO+Jcc3G3dw QPhjGScr/NLRElx1OvnEheyqYAxff/4c9Sgn5i7sdHFS26fdZ9r2J1hzeGS/JLaENrqkackm8Y0tu2VG J3kOMbYtFA+8ujW5kj2ROo3EP7h2iZT5hgsxtVoUPx Jzt9TKK8VsM4x+9l7PDzeZK6ZstcYrkKKMfx/Wq52syP72qDbZu+PVGry3ezrjg6IpMFCMvssB+GN5ZY rW8IadcM+UYtwozUH1GstcK6HdAhBuwRhvZnH5ngkEgFvyq+NHzBpOQcm0WSRXCgTgoQ+So69bIIZrix KxIvFEsKgOjXL0W4iZ2G1jXOA/lhfppOD+QfpjeRFS JinAB+RG9BH82NNiUSB0DlowWHYb9y5Xt/3rf/37H3/L4ted/v1///kf/6f/z3/+/f/++d///penr/Er 9d//4togl2Srap5IqniTo/LpJdAxfrzeoHp1yELgtXzUh0GsNXNt4nlYKbSmPmyQRaGYg66OW3N07wwL ZInJ7Q8Pl6KepRfa/7eJN6e4C4SB2ah1nB21t6QzjS T0d6C/YyG/IL8g/0b+azaf45AyGap/Gfb+ltmD7g5LmJN//23jBQn2/snPae9B2QgGK/z1d4pF+Je+pv /oNcG1qPTPe+k7xs+PPD295MAw+vjn0aJZH0p1SH540I5ug1jJ/QTh4V/6D696+Mki2yLT8x40+4MOka 5feusR/vicCH/9JRxuoQ7E4NDEBbm5BB/3qrin8J+4 EDFsqE7NKW8ClQhin/D/rlH/+5oNYaQvpC+gG15oGFQktm+/Wdeu+aInyszvkPu9rJ/ilYaGnZlR4qYt fklvCBf/D+lxEzrT82Nk2j/wWci/3ZZ6R5uHUv0R7E3mXXK7OFjW7y/qj9nP7EkhfyW+8f/t5hRmUqts fSD/854vKshVVdb6miTNV2iKi+75fUGpb7HfuIl0EN IP0rE+q2T72jr8bBn582C7UfaMa40f+EvXCHt/bxj5J/JPpC/kX0j3/p4Mf+c9aTSTjz19fl+Zx/ubdt K//mat29Q4/mwoG5ic/I9/tfBwpX+T7mfjoqWbd4B6Ty630RFr/g9Bs4jnpx/Sv/6Qw1r5X62D9fLrxX jshrF0d+AZ98tejd73g8Mr+1DaL0+kK/Z0ciUHLY8o V8f7G+Eg3ZepWn68/M0hFc354gwNaj/Rriim38g42ce/aQ7O+6sZ/gRzAdMyo6K//b1h72+FGFfxA07J qYKAfy0Q//HNmIg5ma5k07jvN4Sef6r/2arwHhs07/hTkZfu/2++t+5Sefz/cEB04W3HctWL3ij++xuR HAP+XJZYyT2DuPh9/x1Rdr//3Z+DgFIvr1moLW+8+d OQl+7/66euyfvKDV18M79VZk6c/yg+me2vRdcFgAiHq/djASL8v2t32okuC644aQTW/jq+tzfL0Fjnwo Rl46phYa9k+h8H/l/HV/A6ZxFK9STo02uXm9c+9qPCb/z7y4+XX5C+S5Air08k+KOPHP/+8dQ14nZOas 76i4/SMX6g6xng5+wZm18zoffPV7dcgeIsQo3wWa3h Nd84ktj/wWeBv8/mmT165Gvvty/2lk1HGibVF97gRG2pTID/+Mo/YI0N04x1709MJJiMwtK4oK+Wdx4a hdLl0SCvJk/N1uHO6m/+fkDjC3/7vwvW8hY68ux6DgJCZ3jZW1xCr0jgjYuTcc57V1RhVi7X+X0wQ6xD HYmvv/t+Cwbf3pmDaa9f4Myli4px/2DVT4OF/vV3z6 uM/jBzami/9PjvHF/nJRM8ix1paXLg2CkfYw+p4yuN/1CmcL5HJ4F//f68D126nJJEU/sET++vXV3AP/ 5h7xTsbo1sJhgtQ/+Z58vQpqG3mhO4kz6i0QkZyVy1f/QWet9mIrqI6xKQM6Yd+u9dW2rxy/5K4/5Hjq 00vKLHSk8x/6/fj87Cd0dy1ChV/YnzrhZytWM25kTa ncaPau6c2haD0SamL6+x3jq+opX3DWl04/urnmG52xtn8+n4Kvvl+Ts2QsADBG7jV95xA/x9/aRsa2MT C3vm67cgn/DX5ld0zWW1tatzL0Dj+Hlq5nuz05fV+Hh/z01oy7RF9oxbx4KE577lqPIaPr612ow2/jo2 85cXvzZnuNIdXyV/t0g3jzoQa6S5Y0jDm+OrE+PE8Z Vlnl9/gnOT5x27NeJzs2nXSco6+EpG8hc/50YbvvOvtMj/nX9T5h++kpy/M45Rkwij+Tfl8+WoiX9qr2 fSM8/PY5m75XYW+wrvvjvemrUnHhjot4EVLgYTWxqG/X1Fjmd/WnUM0rlb/amwzB9q/PjTipxr/rLi1S Xvf/R3Ffl/+bOK/B/3IdTum6zwKm3m9VINgbdE/p7i lu3ob6/o6T3dttcXV9iLTxOnWb3Dk01uYN7wyPn/IXTh0y3Z1Miyfwzt/vlgQA3K+ttr/ve9cHeBSL7j 0zF88cu/Z9MYXK2kKA8krg7s0li7Ntp9gjhx778Y/yxgcB3AWiNRjw96liwz8X2wzYh0XSkeyEhOHVkx v/fX9UL+MiR8XT9licjkj9A99q5sE+IWGHh1hTcpD9 RTxzeiY0u8ohaY/gRI4xqnf1/zlxG5X/vDiNz7/F5DP2Gm7NijcA/HVy/2frcn3H6uqjqHzjK+XmUeX6 +Cp+OrFy7+co5ngk3mwF/HVy+EsdRbTtDHjR95Ix48jmv8zv7/WeixblXn6SG5rkx9cf/fHV+qkJU2b5 y/p6lrvc6N6+voJ8yGDLp+Ft2k6mo/+vCrw/8Lx1fH 9ST+8OHx+fr7wp4/wuL5o+zX3xv++ns0w1+6Rfjrb+g5/vZEWi6nMcXv9L6We0b/BXS1rGc8+rujvxrh xqgga1Jz4xye829Dmanrz35x5t8rgGT/kxUdgBRivyhf8O02btqirzrz17oSJ/0kw1NWwvxfGe2+nmOt cUgC7F0oYs/XbJ4agkW2Nv+Bz4Lcu4u8N6vf43fuJs jv/I407AARS2n7nuqawaVZFEa2lG47xFN0q9ocQqG48vnwl/m0PC8mK7Z6tu7IUn3gHfiLg668XQa1je x1VtGcAM40heogEzhfyb/nFG70hpb8eR1Uj2mzI1kAyl6I/NHfg/5aq/bFb1MRtx477PCzSHQe82tcf+ rozc1dx1pjmoDS9qA36nXW/rr+Chb0fkAQGb+uv7rp GM+gm4s1b4Xig/h0mVGd92bVJwTiBmF0/GHCS6//158lZH/9VUKue/3nPyvrm7v3pkG06WvVZ1/NX3+P 7PCaj666v6GI86ouToYw1m4/jzHR5tITq1jP44g/A5eM28Z/bfMihi1FgCZghjDaJRSv0ttCbyfxK0+H V/0Bgl9G/ML+/IxPsaEPG3Hobp0c/vpr/h/504NlIW fHV+b/gx27DQMu/9dfk8j/9feGHT+vDBd/z9zBLqjDcdC1Eb/FQ0tdim8NIZ6K4Bj6VrBcrWH8ct94iP XeXxrc/0jmYo2Tcj/yfxzx/0ZYaxyOGs/+alTHcSUkiLXNsB2pZbGo8CV1Wj3HJ6tacc1fQlkUw+OrrH diPDu+unkm+VyqkpHOCuF6jNzR3+tzhkO/IRFGurZq z9HYeMnrSn5zYxj+3rBcPckKfBX/S+CrDPeqN/FEfw79dWGj4Gg+upD0jzlYFvEu0Lzbc+CrDO+H3/z5 wGunlnwW+oqxwirzK41y3nUjUi6UhTmXiq7nuh60Yh/F/zC2frDWa68y1FV1rhBB/PwbY/XDV/kl748Y /MpEnu/5Q6naeo8sqgdI7Vv+9bcCsmMdEz//rsj/nX +PBv/v/Kpw23EJhifq/86/O9acD1/Jyj7ad+0Lsio7dt+7buzu0dVs//UHAonP/Z9PU4MJudJ5+t7tjw CpzQ6KI/RXmd//3+t807dvh3f/6Pgq5R/4Gi78rNzWRt/fS4MrEd5Ze1SxPg1LykIq1EoVpoS99xbmr+ Crk+Aex5UpFpfSPb7mc5C0//scjMcH47Nyz6Wm/gQg cam/YAjslyoGwI0G38hLCE362Hb/a87eI2W9rd/+77SF8LGgtIc2/O/X/c5uytpzOF/0//ycgO5qe00I +pBzJn7D/bfEi1dRTqprL+V+4gcjp5Dxe2rW/ffYO4/8niF3ME057M85qYCjYt1CT1BgU+dXCpFk8aHw Bf7wR28e9c+T2pcdX+XcdHx10+t38Ye5NneQ3THDX7 airNX+0Fqm4mO8+jPdr/RnG/xGf+7FfqH/E9xfqO8PreZtlC6IFw49Ux9hIxGl7vkt/aXu4Oj8R5fQs/ d0ILt3tb3K3Qw9JzfL9EtkClwu6V15LLWmhz++unk+gSDh3Bnh+QS+sbXd4gf55jH7/nrT6fX508eNp+ tz8/Hp1/Z/rumdeS2NP8B70hGCUs19Odf3wu8Ny/tB dxI2Fu7ZiyTJ+TeTVc0X1Ep+WauWvxk2W89E/yjwVfynga+yrP+/O/Kvh/i4jd5wW82gVlr0/fzH3//f DPv/VqC41Y5dme4t11uu11th1rCbzPxLNFCce/NXb3omLsYa/fetR7uq+JX8nFN+I//W6/jqhuv+lV/H z3XDb+WcXaIW3NKp+343OJJ8Gj1GEo+J/+pVtOcg/0 O4iIAIB+HfdMdXL/z2X7+Bf/x1ete33ur+q/Q5fvv+9xJn3dP6kD6NR/1dpc/xe/mxt4g4Ql+Ou5U35o /ZR7F3s30QsoJJZb6HqTI0OMmH6XEsF/2Yn6VPT3OqEo+EhVz8OSV/CnmG/oxX6e7A+ww2h0kF/zf0V8 ce5zKCc9eO/UJ/M68TuJl1N/npvYDd016+h/4q+rjx /4b+SjMMPvh/HV/pwRX90JeM2q9NaepDV4++00pu8plbrWCtmm+k+/n6ccno3o+tMa6U5QdOg4CN6GrF +hlkg0F0vul6gFMDSqI4YD73xNM/hifIQ4k/O3/ABg53p8aM+q9+weGC5g8g9sPJD7PfWjnkl05c/M58 hWtf+PDVXf8/iGE2mL6w2HYt6Ufa0s0wCr6tX4P+7P gfzymzw41lHu0v0nhNw2vOb6f6AJ/lf+T4Kv/ZcPlkUbHifMz4AW5T9zemUiL5djiSxoNz+lgxzF/HVz l3Hz0Wq2s3iG/Hc2KC34KoCdoL0UODvj/6IAH7Vb2qs8nZR/96fSVRDv4T/4m28SynXu8J/7Ft8Q3wV+ jOonf6Xav7EsaxPA/TU36uHYk9h/8rwwZnka4Yr0YH frh9h/3jta03V/fS1+0TR6N5fSs9p+8L2/ORgwnCP0632Ku9G90Olx791Whw7zP2nQXpx5oKW/FdeDu+ ijPydnwVZ+Tt+CruruwPX/0WxWjDed+Ft+Mra8H/t26iq9puy0FY1/ZQxAg8h90+n8021rBJTfyN57on xeEZ4dXd/n7WW4Yk5nK63Kqu6+K0tBPDCAsm636jJL gjvfTPO/RXITfHV/nfjVP/l+GdB9O6owimqvaLv00c6OfpmA67AiqHarn23MXSq8UUqUMElPoCS9iicp TS1+4PUtMVB2Bi8Hdum/+fqXNHtqjVkbR/R/Dg0x5BXIHfA3PVag8ixCMGFU+3ziYF+ieslHJljD7edZ mRfiCdhfAL/qgb7vYwmXE6VVqelHXQz1P3Om0Gdhl/ hnRQXuGrDD+Q/qhxY6D/Cl+le1Y/HbX+ncBXU/gq3Qv+C/61/p2j9p+n1/f0yrju8IV4Su3mhn5dtAP5 pVxjS42zjRbU+Crd/oQO5HXdB/gq/Qs/H33Wad178P5d2+GK6bX+nQdfCUvMg6+y/54cM6OLy7V/PRwy Z/eoolmVSwupq0iZn4OD9pQWVwWVx2+4HrtITt66/C f8tf49/mJxnyjBLwT9qojnIt1qlJQyn2Ia0DXY74bekeoXagOmW85/M2S5f4nao6pgKdbjSHwAg5G/[employer] 9Mo6Xhiq8Wulw7V/1pdY1UzgUCaxawwyh7IUsf/mf/6rnhbw/XzbN/lWU8+7zKx1aBbVfyRtiPk0ENu7 em8JX+d+Gr6/oOJwNo8O0Sv3KOzV/Sv/VGXT4ufVur 8VW6q7/uUi0J4qn6S/gTd6IfNV8a7k6b2BZ+5nfurWWi8Tj0b37FaMzxV01ZB16go/PzMJrVaRg9Oo73 I6FbHHm7s3kbxdkW6Y32U8GTbigfi2Xfob4qzF93Kn3BxYm7+Or6n/3nUz/v7D2SMVoSi/7x1X3R+LT/ bJkZhGn6ch5RB739p2tv153vIw8Fx5+phA64h9h+MV TPKmUdPZzmzwlx9P/KdPYX22CeF/7Dy+1vXgvzqn+r/edjwC3/n8U833sF/b9h9f+GLten242Ge+psh9 FqvR+k1zSw9NnjyyV5jsaU+UmYu6WZ1A6XsgName6Yb/ZzotX+UzurKFv8V6Cr+G+Y88XRjqbq4ITtT3 JX1/3mu+dofCLUir4S7Y7tjo+6UL5Xw6C5Di96arYE jesIPz+44es65zuvyAeFC725awSxzgoa34U0nj+w9vbrSEoR6M8oZSf9wMQS0X/HwVeZ/9HgX+NzjBqf T6O6x7y1IPx+cbPyC3l88GliBnX+c5uv81Y09TUqgR9vc4T/claudia+R+1xhdvqjkX2e31MhKd3EDcfAJkgB YJ7MZlF+Kj3XjeI87p1ff+63p/kPK9gcW/zr/saxmP QKAMZy57NbRUHWXpM1Tw45oKe3Qda+Xeh8UP+c8thne0mfWlegV5fc5KaS+VK07fq7Kr2RFgiXFODg/I R/wB/gZ90EH9G2fwr97NCk12948U8nk3/Ba858Ve8g4DT/dOoUaveVh67E1+NrSNnr6rcE9LRIz0mljn C+Gy0mfWj4+Daf6ww9srU/b/3bM2/n/NdD7t/5ssp7 9j100y5n/3riwWf5E5h5n8z/2p/C/Na/On+Ps3/lmjd/+Wn6xsGLr/rxVNr4KSnMs/mLknlXq2THV91l h+5nyIjrU0Asnl+Fzop3E7L/Kv3r/kZs/L8b/6/dGhv3FlpX/Rp1625NezO4/l/hd4rzSwo3rPmmpkm7 Pzbas+5fpX/YW6wh956h4NwUut4+vru+Ku/6qrzrq/ Xr8l5Xf4Y8fn+xvjrvXl+Bl62yG8c/FXLX/7u+Ku/6JsJPhA+Ejzf+YFNfX7nbc212h/DVkn+PS0b5Jz LWT6of8Z2a5gz/Bv/+zkljEc1525lEqe/A5d2gQd69HB0VpF/dN1tW+sqYBcF5NwwtBA/7n3ecZcRaqP +pOw3DBDuq1o4s8SjL/rHnc6atspmmd9BB/AfSqfOj 6ty8ySUmyIkeISl0cyNun657E+Fr/b69Xfse2Fdnqq4NypL++KV7cYVz9/96POad9m/7Zqs3+Nf5/up1 hx94zy5l2raM05uPMe9C44PceQ/1whurB/zrPHQJX+A7Goc3iX25b21HO37iYI44A1czapBH5AJLt6vy S01RoxK9IDxB1eR5W6Kz0h/SPet/6Y3IboPxeAIu/s Dtuq00De9mLK+cPG6Sr9vnt12ulxjl1k3xjxti/380a9nfdbOLc6CesHppGVZbD5cUcDheqtEwaj/uAy /athX1fb3JEm6qe+UYr3wj/K7wE+GQpTf24q5uuoBalK02225Pu8qtOkxDFM79aTc+piO8I/yE/0R+UN 7LRYzuwM7FHxMsn/GEgnhid009309D6Q/x4o01bq9k FR3hO/fS2aX6BF9/lDfvtyvMhH/d916B/heZ8yG8S4J/1/+v9m7hGbzoNsqX0A73UscvjDik/6B08bzx IP0B/3YDx1Y0lVR1vd2DT4tl6K/gv+C/4V/6D3qGcrLiE/56BzhKGptG8BQlgWkk1Rt91R7mg/Y3lvav yz5N3rOoweO8XX73R+0631+71vtL+3cqEfqL9IksvJ xAo0tn8++v9uv2V/DH9p6fX3/sr/zi28c1r9j4q6kY3p8gt5lX/gP+HQ8qqK3wUqebV+Ff8+/+Av4L4e s+w/7qPsPW+jJg4584j8Ba+nL20cMH61u/wnYv524cQjt5hv5kyOEmMthat8o3qTP0do+4BpwpC18M8f dtm/A/0Mx1dBRM2gi3eQdC/7TnT+35Q0aHaqr4hSvV qmO28b7q1J1liL2aDE1U/pT3uuE/Sq40C0NyyW2W/g7/uu+9W91/3k6Sz2C+FvKj9+mmj5p2T9hj0+71 ht6kobeZzLN5x1ti6xJ34ivZ0o/rcqwwzl355G2A1M9tE0yvB5f3ma+8e82/p9r1lH75Nwr4I0vjky7Z 73fPef/wlcu+0/8cS14sT6e/0THS6tR+4rq0J55/+M qnyf+sf/2T+89/nTX1/uErXxnmt/3v8i3382O0nZ4Ou+cA5afpmi1vA+7B5nF1R2q890QwN49Xvvg14X Xee+6Om5zBGAVemm2e0m2wog7B/jiYU8H3dh9Facf/6Ph/E56XxaxxJbK389MIr3+um1vX9SAou8//q7 oVvspvobzCV+lvuj1cmWSr1c8Xm223/IWvrhv+9Z59 C1+pw2lmYrFcGe6hl/LQwoR9tqYKsE/CV+mLaB5Pa6dlr+gA7Wj8AlIH/BfCr6p/4Sv1C+LjyVQxkY2c Tdme8pf1G1wXtwMFRtvZgvFse9C+yq3d61gjAH/3GXZM+E8vd+4q7Dx7onOyuki76k2Slyskn+9V5ykb +GqvOj/yaVp7WURfA3lpBoy33xm6ap06Avj4f4O89p l7HYh10/xt89m9ZqwYtfl4fU930D2sZsrZ0s7L8jp834qAgkVMoZc9/j49StWpEj1xjC7e3XnLK7GK2f +37gdk8PyqoH5a+0p1hpYnaHKW8qyXq7aDa8y1ei2efg107Maws+4T/uUWPDi1YccG7C/DGnj80pRYj4 AYp24F/wn9o/Dy+ccBbHtj1VP2Dxg5OhZ/YT6w+BMY p65z/IUJjJnKm5LHCQa9Nb24iz/dkZKqVLFw69pPLep5NklG/yLu6ynyL7p46a+ppjZXfG4iD9jbkB/w +bpzVP03FfkKIyE3HWr6BWx9ks+Eeub/E5Ba+8MobWkUtSWvKL3q8BO2Si2C/Q17P+GNh3/CcYX7KEvD GErPD3VmaxuwzJOUJgQSb87G9pZ0ChMlOB9kY7WtQR 6MP9Q1xzJ5ivRlG65UccLM4T6j1DuV7JakuPrHdE5qeL+AvRgTms11dB6ATjsjTnO/KYzjw8IxFInNaR XahfEehPi2l1QsMdDXkQzhZ59EUZNbhJ+MQLvW+8RsLnqg+BCzmzzCNvI32bW7IJ3P8lzTdn73VQU07Q 9CLbV/us130N0Nsnv+wpvN/Herman/n2NRAAn1Ri7eG8/ [file] [id number]+EmockLDykPpsAXLPIIQqPfQ3CcPlIR3R ID Date Data Source [id number] 04/11/2020 03:58:00 PM EST [facility] Name Value Range Interpretation Code Description Data Mary rce(s) Supporting Document(s) VANCOMYCIN RANDOM 28.3 ug/mL [facility] THERAPEUTIC RANGE IS ONLY AVAILABLE FOR PEAK AND TROUGH SPECIMENS. RANDOM LEVEL RESULTS MUST BE INTERPRETED BY THE PHYSICIAN. ID Date Data Source [id number] 04/11/2020 10:56:42 AM EST [facility] Name Value Range Interpretation Code Description Data Mary rce(s) Supporting Document(s) SODIUM 139 mmol/L (136-145) [facility] POTASSIUM 4.3 mmol/L (3.6-5.2) [facility] CHLORIDE 108 mmol/L (100-108) [facility] CO2 27 mmol/L (22-31) [facility] ANION GAP 4 mmol/L (7-16) L [facility] UREA NITROGEN 18 mg/dL (7-24) [facility] CREATININE 0.94 mg/dL (0.60-1.00) [facility] BUN/CREAT RATIO 19.1 RATIO (10.0-20.0) [facility] GLUCOSE 238 mg/dL (70-99) H [facility] CALCIUM 8.0 mg/dL (8.4-10.2) L [facility] GFR >60 ml/min/1.73m2 (>59) [facility] GFR ( AMER) >60 ml/min/1.73m2 (>59) [facility] GFR INTERPRETATION [facility] --NORMAL KIDNEY FUNCTION OR MILD DISEASE - GFR >OR= 60CHRONIC KIDNEY DISEASE - GFR 15 - 59RENAL FAILURE - GFR <15 Est. GFR calculation based on the MDRDstudy equation, which assumes a steadystate for creatinine. Est. GFR should notbe used for medication dosing. ID Date Data Source [id number] 04/11/2020 10:25:22 AM EST [facility] Name Value Range Interpretation Code Description Data Mary rce(s) Supporting Document(s) WBC 13.8 10*3/uL (4.1-11.0) H [facility] RBC 4.45 10*6/uL (4.00-5.40) [facility] HGB 12.2 g/dL (12.0-16.0) [facility] HCT 35.8 % (36.0-47.0) L [facility] MCV 80.6 fL (80.0-95.0) [facility] MCH 27.5 pg (27.0-32.0) [facility] MCHC 34.1 g/dL (32.0-36.0) [facility] RDW 15.2 % (10.5-14.5) H [facility] PLT 214 10*3/uL (150-450) [facility] MPV 9.2 fL (7.1-10.7) [facility] ID Date Data Source [id number] 04/11/2020 08:21:19 AM EST [facility] Name Value Range Interpretation Code Description Data Mary rce(s) Supporting Document(s) POC NOVA GLU 243 mg/dL (70-99) H [facility] [place] [facility] [place] PERFORMED BY [facility] CLINICAL STAFF ID Date Data Source [id number] 04/11/2020 07:06:00 AM EST [facility] Name Value Range Interpretation Code Description Data Mary rce(s) Supporting Document(s) Est. Average Glucose 171 mg/dL [facility]) Hemoglobin A1c/Hemoglobin.total in Blood 7.6 % 4.0-6.0 [facility]) Performed using Siemens Widener immunoassa y. Care must be taken when interpreting HbA1c results in patients with a hemoglobin variant or decreased erythrocyte lifespan. Values 5.7 - 6.4% suggest prediabetes. Values >=6.5% are diagnostic for diabetes. REFERENCE: DIABETES CARE 2018: 41(S13-S27). PERFORMED AT [address] [place] [address] [id number] ID Date Data Source [id number] 04/11/2020 06:57:00 AM EST [facility] ([facility]) Name Value Range Interpretation Code Description Data Mary rce(s) Supporting Document(s) Sodium [Moles/volume] in Serum or Plasma 137 mmol/L 136-145 [facility]) Carbon dioxide, total [Moles/volume] in Serum or Plasma 31 mmol/L 22 -31 [facility]) Chloride [Moles/volume] in Serum or Plasma 104 mmol/L 100-108 [facility]) Potassium [Moles/volume] in Serum or Plasma 3.9 mmol/L 3.6-5.2 [facility]) Creatinine [Mass/volume] in Serum or Plasma 0.97 mg/dL 0.60-1.00 [facility] ([facility]) Urea nitrogen [Mass/volume] in Serum or Plasma 17 mg/dL 7-24 [facility]) Urea nitrogen/Creatinine [Mass Ratio] in Serum or Plasma 17.5 1 0.0-20.0 [facility] ([facility]) Anion gap in Serum or Plasma 2 mmol/L 7-16 [facility] ([facility]) Calcium [Mass/volume] in Serum or Plasma 9.1 mg/dL 8.4-10.2 [facility] ([facility]) Protein [Mass/volume] in Synovial fluid 7.7 g/dL 6.4-8.2 [facility] ([facility]) Glucose [Mass/volume] in Serum or Plasma 57 mg/dL 70-99 [facility] ([facility]) Globulin [Mass/volume] in Urine by Electrophoresis 5.0 g/dL 2.7-4.3 [facility] ([facility]) Albumin [Mass/volume] in Synovial fluid 2.7 g/dL 3.5-4.6 [facility] ([facility]) Alb/Glob ratio 0.5 [facility] ([facility]) Aspartate aminotransferase [Enzymatic activity/volume] in Serum or Plasma 11 U/L 11-39 [facility] ([facility]) Alkaline phosphatase [Enzymatic activity/volume] in Serum or Plasma 206 U/L 45-117 [facility] ([facility] ) Bilirubin direct and total panel [Mass/volume] - Serum or Pl asma 0.4 mg/dL 0.0-1.0 [facility] ([facility] ) PLEASE NOTE: Total bilirubin results may be falsely elevated in patients taking Eltrombopag. Glomerular filtration rate/1.73 sq M pre dicted among non-blacks [Volume Rate/Area] in Serum or Plasma by Creatinine-based formula (MDRD) Laboratory test result [facility] ([facility]) -- NORMAL KIDNEY FUNCTION OR MILD DISEASE - GFR >OR= 60 CHRONIC KIDNEY DISEASE - GFR 15 - 59 RENAL FAILURE - GFR <15 Est. GFR calculation based on the MDRD study equation, which assumes a steady state for creatinine. Est. GFR should not be used for medication dosing. Alanine aminotransferase [Enzymatic activity/volume] in Seru m or Plasma 18 U/L [facility] ([facility] ) Glomerular filtration rate/1.73 sq M pre dicted among blacks [Volume Rate/Area] in Serum or Plasma by Creatinine-based formula (MDRD) Laboratory test result [facility] ([facility]) Glomerular filtration rate/1.73 sq M pre dicted among non-blacks [Volume Rate/Area] in Serum or Plasma by Creatinine-based formula (MDRD) Laboratory test result [facility] ([facility]) ID Date Data Source [id number] 04/11/2020 05:25:18 AM EST [facility] [place] [facility] [place] Name Value Range Interpretation Code Description Data Mary rce(s) Supporting Document(s) POC NOVA GLU 339 mg/dL (70-99) H [facility] [place] [facility] [place] PERFORMED BY [facility] CLINICAL STAFF ID Date Data Source [id number] 04/11/2020 05:14:02 AM EST [facility] NT INFORMATIONPatient MRN Name Date of Age Gend*PT [id number] Tatianna Soto 1965 54 years F IPPT Location Admission Date/Time Visit ID Attending [id number] 04/10/20 2317 --- Brittani Birmingham MD ([id number]) EPI ID CSN Admitting Provider [id number] Brittani Birmingham MD([id number])History per PA note get CTA to define circulation better Name Value Range Interpretation Code Description Data Mary rce(s) Supporting Document(s) ID Date Data Source [id number] 04/11/2020 05:12:37 AM EST [facility] NT INFORMATIONPatient MRN Name Date of Age Gend*PT [id number] Tatianna Soto 1965 54 years F IPPT Location Admission Date/Time Visit ID Attending [id number] 04/10/20 2317 --- Brittani Birmingham MD ([id number]) EPI ID CSN Admitting Provider [id number] Brittani Birmingham MD([id number]) Attestation signed by Brittani Birmingham MD at 04/11/2020 5:12 AMI saw and evaluated the patient and reviewed pas note. I agree with thehistory, physical and medical decision making with the following additions,exceptions, and/or observations:Signature: Brittani Birmingham MDDate: April 11, 2020Time: 5:12 AM---- VASC ULAR SURGERYADMISSION HISTORY AND PHYSICALMelinda Santa Teresita HospitalN:[id number]: 1965Informant: The patient who is reliable as well as old medical recordsPrimary Care Provider: TOM RUANO DOAttending: LEVI LawrenceubjectiveHPI:54 years White or female, well known patient to the vascularsurgery service with a past medical history significant for PVD and ischemia,CAD (s/p quintuple bypass graft 01/16/2016), HTN, DM, COPD, hyperlipidemia, PAD,HERMAN and heavy smoker) has been transferred from [facility] ED with aright groin infection. Patient claims [...] femoral endarterectomy, Iliac to profunda femoral bypass [id number] ringed PTFE and Jump graft from the Right Iliofemoral bypass to the belowknee popliteal artery using 6mm Ringed PTFE. Ligation of the SFA.; Surgeon:02/12/20 CREATION, BYPASS, ARTERIAL, FEMORAL TO POPLITEAL, LEFT; left heeldebridement with wound vac placement; Surgeon: Dr. SanfordThe right fausto had osteo in it and she was [...] Wednesday, and Wednesday.She was last seen by BLADDER CLEANER (Alethea Cisneros) in the cardiology office on 03/29/20 forroutine [...] VEIN HARVEST; Surgeon: Saba Smith MD; [facility]; Service: Cardiac/Open Heart; Laterality: N/A; FOOT SURGERY [...] femoral endarterectomy, Iliac to profunda femoral bypass [id number] ringed PTFE and Jump graft from the [...] Take 80 mg by mouth daily 04/09/2020 [id number] buPROPion (WELLBUTRIN XL) 150 MG 24 hr tablet Take 150 mg by mouth daily04/10/2020 at 0900 clopidogrel (PLAVIX) 75 MG tablet Take 75 mg by mouth daily 04/10/2020 [id number] cyclobenzaprine (FLEXERIL) 5 MG tablet Take 5 [...] Take 10 mg by mouth daily 04/10/2020 [id number] metoclopramide (REGLAN) 10 MG tablet Take 10 [...] NEEDED FOR PAIN MAXIMUM DAILY DOSE 6 [id number]/10/2020 at 1100 pentoxifylline (TRENTAL) 400 MG CR [...] under the skin once a week on Klsyey67/20/20 at 0800 nystatin (MYCOSTATIN) powder Apply 1 [...] 0.98 02/07/2020 HGBA1C 8.3 (H) 02/18/2020Assessment and PlanMelkarma Charles is a 54 years female with [...] stat labs ordered here (I did review [facility] labs 04/10 at 1553 Cr 1.10; WBC16.3)- [...] CAD s/p quintuple CABG 12/2015 - in [place]; recent visit with NPrecommendations: continue ASA, Plavix, ACEI and statin therapyECHO 07/06 EF 45-50%5. HLD- continue statin6. HTN- continue lisinopril7. COPD- continue inhaler- LET8. Pain management: continue flexeril, [facility]ricaC[facility]: heparin for DVT prophylaxis.Code Status: [facility] Care Proxy: -ADOD: unknownPatient condition and plan of care discussed with Brittani Birmingham MD and delonte. Further adjustments to the plan will come from him.Signature: GLENIS Magana-CDepartment of Vascular SurgeryDate: April 11, 2020Time: 12:09 AM Name Value Range Interpretation Code Description Data Mary rce(s) Supporting Document(s) ID Date Data Source [id number] 04/11/2020 09:44:53 AM EST [facility] Name Value Range Interpretation Code Description Data [facility] Document(s) POC NOVA GLU 162 mg/dL (70-99) H [facility] [place] [facility] [place] PERFORMED BY [facility] CLINICAL STAFF ID Date Data Source [id number] 04/14/2020 08:18:37 AM EST Lab [facility] SPECIMEN DESCRIPTION SURGICAL WOU NDSPECIAL REQUESTS NONEGRAM STAIN MANY (>25/LPF) WHITE BLOOD CELLS MODERATE (5 TO 10/OIF) GRAM POSITIVE COCCI RARE (<1/OIF) GRAM NEGATIVE RODSCULTURE RESULTS MANY BETA HEMOLYTIC STREPTOCOCCI GROUP A ISOLATED MANY STAPHYLOCOCCUS AUREUSPRELIMINARY CULTURE RESULT CALLED TO CAROLYN ON [facility] D4 AT 1147 ON04/12/20 32915.NOTE: BIOCHEMICAL IDENTIFICATION SYSTEMS WERE SET UP ON [...] Name Value Range Interpretation Code Description Data Mary rce(s) Supporting Document(s) ID Date Data Source [id number] 04/11/2020 11:06:10 AM EST [facility] Name Value Range Interpretation Code Description Data Mary rce(s) Supporting Document(s) SPECIMEN DESCRIPTION [facility] METH RES STAPH AUR (NEG) A [facility] COMMENT [facility] [place] [facility] MARIELLE [facility] D4 AND EMAILED TO [facility] IC AT [phone] ON [phone] XU [phone]. ID Date Data Source [id number] 04/11/2020 02:06:41 AM EST [facility] Name Value Range Interpretation Code Description Data Mary rce(s) Supporting Document(s) HEMOGLOBIN A1C @ 7.6 % (4.0-6.0) H [facility] [place] [facility] Performed using [employer] Widener immunoassa y.Care must be taken when interpreting [id number] in patients with a hemoglobin variantor decreased erythrocyte lifespan. Values 5.7 - 6.4% suggest prediabetes.Values >=6.5% are diagnostic for diabetes.REFERENCE: DIABETES CARE 2018: 41(S13-S27).PERFORMED AT [address] [place] [address] 21822 EST AVERAGE GLUCOSE 171 mg/dL [facility] ID Date Data Source [id number] 04/17/2020 10:41:04 AM EST [facility] [place] [facility] SPECIMEN DESCRIPTION PERIPHERAL 2SPECIAL REQUESTS NONECULTURE RESULTS NO GROWTH 6 DAYSREPORT STATUS FINAL 04/17/2020 Name Value Range Interpretation Code Description Data Mary rce(s) Supporting Document(s) ID Date Data Source [id number] 04/17/2020 10:41:04 AM EST [facility] [place] [facility] SPECIMEN DESCRIPTION PERIPHERAL 1SPECIAL REQUESTS NONECULTURE RESULTS NO GROWTH 6 DAYSREPORT STATUS FINAL 04/17/2020 Name Value Range Interpretation Code Description Data Mary rce(s) Supporting Document(s) ID Date Data Source [id number] 04/11/2020 01:57:49 AM EST [facility] [facility] Name Value Range Interpretation Code Description Data Mary rce(s) Supporting Document(s) SODIUM 137 mmol/L (136-145) [facility] [place] [facility] POTASSIUM 3.9 mmol/L (3.6-5.2) [facility] [place] [facility] CHLORIDE 104 mmol/L (100-108) [facility] [place] [facility] CO2 31 mmol/L (22-31) [facility] [place] [facility] ANION GAP 2 mmol/L (7-16) L [facility] [place] [facility] UREA NITROGEN 17 mg/dL (7-24) [facility] [place] [facility] CREATININE 0.97 mg/dL (0.60-1.00) [facility] [place] [facility] BUN/CREAT RATIO 17.5 RATIO (10.0-20.0) [facility] GLUCOSE 57 mg/dL (70-99) L [facility] [place] [facility] CALCIUM 9.1 mg/dL (8.4-10.2) [facility] [place] [facility] TOTAL PROTEIN 7.7 g/dL (6.4-8.2) [facility] [place] [facility] ALBUMIN 2.7 g/dL (3.5-4.6) L [facility] [place] [facility] GLOBULIN 5.0 g/dL (2.7-4.3) H [facility] [place] [facility] ALB/GLOB RATIO 0.5 RATIO [facility] [place] [facility] ALKALINE PHOSPHATASE 206 U/L (45-117) H [facility] [facility] BILIRUBIN,TOTAL 0.4 mg/dL (0.0-1.0) [facility] [place] [facility] PLEASE NOTE:Total bilirubin results may be falselyelevated in patients taking Eltrombopag. AST (SGOT) 11 U/L (11-39) [facility] [place] [facility] ALT (SGPT) 18 U/L (12-78) [facility] [place] [facility] GFR >60 ml/min/1.73m2 (>59) [facility] [place] [facility] GFR ( AMER) >60 ml/min/1.73m2 (>59) [facility] [place] [facility] GFR INTERPRETATION [facility] --NORMAL KIDNEY FUNCTION OR MILD DISEASE - GFR >OR= 60CHRONIC KIDNEY DISEASE - GFR 15 - 59RENAL FAILURE - GFR <15 Est. GFR calculation based on the MDRDstudy equation, which assumes a steadystate for creatinine. Est. GFR should notbe used for medication dosing. ID Date Data Source [id number] 04/11/2020 01:27:25 AM EST [facility] [place] [facility] Name Value Range Interpretation Code Description Data Mary rce(s) Supporting Document(s) WBC 16.1 10*3/uL (4.1-11.0) H [facility] [place] [facility] RBC 5.04 10*6/uL (4.00-5.40) [facility] [place] [facility] HGB 13.7 g/dL (12.0-16.0) [facility] [place] [facility] HCT 41.3 % (36.0-47.0) [facility] [place] [facility] MCV 81.9 fL (80.0-95.0) [facility] [place] [facility] MCH 27.2 pg (27.0-32.0) [facility] [place] [facility] MCHC 33.2 g/dL (32.0-36.0) [facility] [place] [facility] RDW 14.7 % (10.5-14.5) H [facility] [place] [facility] PLT 254 10*3/uL (150-450) [facility] [place] [facility] [place] MPV 8.8 fL (7.1-10.7) [facility] [place] [facility] [place] ID Date Data Source [id number] 04/11/2020 01:47:11 AM EST [facility] [place] [facility] [place] Name Value Range Interpretation Code Description Data Mary rce(s) Supporting Document(s) POC NOVA GLU 55 mg/dL (70-99) L [facility] [place] [facility] [place] PERFORMED BY [facility] CLINICAL STAFF ID Date Data Source [id number] 04/10/2020 06:43:00 PM EST [facility] Name Value Range Interpretation Code Description Data Mary rce(s) Supporting Document(s) SARS coronavirus 2 RNA [Presence] in Res piratory specimen by CHLOE with probe detection [facility] This lab was ordered by [facility] a nd reported by [facility]. ID Date Data Source [id number] 03/21/2020 01:59:00 PM EST [facility]) Name Value Range Interpretation Code Description Data Mary rce(s) Supporting Document(s) Arterial Ultrasound Lower Extremity Right Laboratory test result [facility] ([facility]) ID Date Data Source [id number] 03/05/2020 06:33:56 AM EST [facility] NT INFORMATIONPatient MRN Name Date of Age Gend*PT [id number] Tatianna Soto 1965 54 years F OBSPT Location Admission Date/Time Visit ID Attending [id number] 02/18/20 1640 --- --- EPI ID CSN Admitting Provider [id number] Brittani Birmingham MD([id number]) Attestation signed by Brittani Birmingham MD at 03/05/2020 6:33 AMI saw and evaluated the patient and reviewed pas note. I agree with thehistory, physical and medical decision making with the following additions,exceptions, and/or observations:Signature: Brittani Birmingham MDDate: March 05, 2020Time: 6:33 AM --Vascular Surgery PA Admission H&P Note Tatianna Soto Admission Date: 02/18/2020MRN: [id number]: 1965 54 yearsPrimary Care Provider: Sharona COE Physician: Brittani Birmingham MD Informant:Pt and chart- [...] day. Her home nurse sent her to [facility], who contact Tiago (oncall) for further instruction. 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 [place] intact. Wound vac intact. PT/DP by doppler. [...] Dr Mehta with Brittani Birmingham MD. Signature: GLENIS Astudillo-CDate: February 18, 2020Time: 6:14 PM Name Value Range Interpretation Code Description Data Mary rce(s) Supporting Document(s) ID Date Data Source [id number] 02/28/2020 08:56:49 PM EST [facility] NT INFORMATIONPatient MRN Name Date of Age Gend*PT [id number] Tatianna Soto 1965 54 years F IPPT Location Admission Date/Time Visit ID Attending [id number] 02/05/20 0417 --- --- EPI ID CSN Admitting Provider [id number] Dain Sanford MD([id number]) [place] [address] OPERATIVE REPORT OPNAME: TATIANNA SOTO#: [id number] #: [id number] ADMISSION DATE: 02/05/2020DOB: 1965 SEX: F PT TYPE: I VascACCT #: [id number] CARE PHYSICIAN: TOM CORONADO-SURBEDATE OF OPERATION: 02/08/2020AMENDED TO CORRECT DATE OF SERVICE. ORIGINAL DICTATION PERFORMED ON02/09/2020 AT 12:00; DIC #[id number] DIAGNOSIS:Protruding sternal wire.POSTOPERATIVE DIAGNOSIS:Protruding sternal wire.ANESTHESIA:General anesthesia.ATTENDING:Dr. [...] recovery room in stablecondition.LASHON Spann/CARMINE Job #: [id number] DOC #: [id number] Name Value Range Interpretation Code Description Data Mary rce(s) Supporting Document(s) ID Date Data Source [id number] 02/26/2020 10:05:32 PM EST [facility] NT INFORMATIONPatient MRN Name Date of Age Gend*PT [id number] Soto Tatianna 1965 54 years F IPPT Location Admission Date/Time Visit ID Attending [id number] 02/05/20 0417 --- --- EPI ID CSN Admitting Provider [id number] Dain Sanford MD([id number]) [place] [address] OPERATIVE REPORT OPNAME: CJ SOTOHarris Lorenz#: [id number] #: [id number] ADMISSION DATE: 02/05/2020DOB: 1965 SEX: F PT TYPE: I VascACCT #: [id number] CARE PHYSICIAN: TOM CORONADO-SURBEDATE OF OPERATION: 02/09/2020PREOPERATIVE [...] recovery room in stablecondition.LASHON Spann/CARMINE Job #: [id number] DOC #: [id number] Name Value Range Interpretation Code Description Data Mary rce(s) Supporting Document(s) ID Date Data Source [id number] 02/23/2020 10:31:53 AM EST [facility] NT INFORMATIONPatient MRN Name Date of Age Gend*PT [id number] Tatianna Soto 1965 54 years F OBSPT Location Admission Date/Time Visit ID Attending [id number] 02/18/20 1640 --- --- EPI ID CSN Admitting Provider [id number] Brittani Birmingham MD([id number])Surgical Discharge SummaryTatianna VelaN: [id number] date: 02/18/2020Admitting Physician: TIMA Lawrenceischarge date and [...] Get Your MedicationsThese medications were sent to [facility] [place] [address] ciprofloxacin 250 MG tablet metroNIDAZOLE 250 MG [...] home on 02/16/2020 with Home Care and [facility] infusion services, [facility] agreed to assist with antibiotics administration. Wound vac wasdelivered to her home for the left heel and would be changed three times weeklyby [facility].Hospital Course & Complications: She was readmitted on 02/18/2020 because it wasdiscovered that she was only receiving IV antibiotics once a day rather than 3times a day as pres cribed. Home care nurse referred [facility] to sort out the infusion issues.While hospitalized, she was continued on IV meropenem as originally prescribedby infectious disease via right arm PICC. Her left heel wound VAC was alsochanged on 02/19/2020.Patient told CCM that she was struggling at home with ADLs, ambulation, mealpreparation. She was incontinent and her children unable to help her becausethey work. Patient requested STR placement. [facility] accepted thepatient, but her insurance does not par and all other local facil ities wouldneed to decline the patient before she could be accepted to [facility]. Asof 02/20/2020, [facility]During the evening of 02/20/2020 [...] explored oral antibiotic options with pharmacy based [facility] wound cultures and they recommended high dose PO cipro and flagyl for 2weeks. The patient agreed to take the PO antibiotics. She also agreed that shewould follow-up with Dr. Sanford and that [facility] to be seen as soon as possible.She was also receptive to continuing the wound VAC to her left heel Home carese rvices would continue to see her. She brought her home wound vac pump homewith her and she has the unopened dressing supplies from [facility] in her home.Because I could not give [...] drainage.LLE incisions open to air, no drainage. [place] intact.Left heel wound vac dressing removed, beefy red wound base, no skin edgenecrosis, no malodor. Bone exposed in wound bed. Scant serosanguinous drainage.Pulses: palpable DP pusle BLESkin: Skin color, texture, and turgor otherwise normal.Items needing special attention:[facility] will attempt to continue Home Care services for patients left heel woundvac. She brought the home pump with her upon discharge. She has an open woundVAC supplies at home. She was sent home with dressing supplies for [id number]-odu and she agreed that she knows how [...] Condition:fairDisposition: Home or Self Care left AMASignature: SAROJ Lemusate: February 20, 2020Time: 8:36 PM Name Value Range Interpretation Code Description Data Mary rce(s) Supporting Document(s) ID Date Data Source [id number] 02/20/2020 10:07:00 PM EST [facility] ([facility]) Name Value Range Interpretation Code Description Data Mary rce(s) Supporting Document(s) Laboratory test finding (navigational concept) 192 mg/dL 70-99 [facility] ([facility]) PERFORMED BY [facility] CLINICAL STAFF ID Date Data Source [id number] 02/20/2020 05:08:12 PM EST [facility] Name Value Range Interpretation Code Description Data Mary rce(s) Supporting Document(s) POC NOVA GLU 192 mg/dL (70-99) H [facility] [place] [facility] [place] [facility] CLINICAL STAFF ID Date Data Source [id number] 02/20/2020 11:31:29 AM EST [facility] Name Value Range Interpretation Code Description Data Mary rce(s) Supporting Document(s) POC NOVA GLU 206 mg/dL (70-99) H [facility] [place] [facility] [place] [facility] BY [facility] CLINICAL STAFF ID Date Data Source [id number] 02/20/2020 10:38:04 AM EST [facility] Name Value Range Interpretation Code Description Data Mary rce(s) Supporting Document(s) POC NOVA GLU 254 mg/dL (70-99) H [facility] [place] Duarte [place] PERFORMED BY [facility] CLINICAL STAFF ID Date Data Source [id number] 02/20/2020 09:00:00 AM EST [facility] ([facility]) Name Value Range Interpretation Code Description Data Mary rce(s) Supporting Document(s) Hemoglobin [Mass/volume] in Blood 10.2 g/dL 12.0-16.0 [facility] ([facility]) Erythrocytes [#/volume] in Blood by Automated count 3.69 10*6/uL 4.00 -5.40 [facility] ([facility]) Leukocytes [#/volume] in Blood by Automated count 8.6 10*3/uL 4.1-11. 0 [facility] ([facility]) Erythrocyte mean corpuscular hemoglobin [Entitic mass] by Automated count 27.8 pg 27.0-32.0 [facility] ([facility]) Hematocrit [Volume Fraction] of Blood by Automated count 30.2 % 3 6.0-47.0 [facility] ([facility]) PERFORMED AT [address] [place] [address] [place] [address] Erythrocyte mean corpuscular volume [Entitic volume] by Auto mated count 81.9 fL 80.0-95.0 [facility] ([facility] ) Platelet mean volume [Entitic volume] in Blood by Javy 7.7 fL 7.1-10.7 [facility] ([facility]) Erythrocyte distribution width [Ratio] by Automated count 16.4 % 10.5-14.5 [facility] ([facility]) Platelets [#/volume] in Blood by Automated count 430 10*3/uL 150-450 [facility] ([facility]) Erythrocyte mean corpuscular hemoglobin concentration [Mass/volume] by Automated count 33.9 g/dL 32.0-36.0 [facility] ([facility]) ID Date Data Source [id number] 02/20/2020 08:26:32 AM EST [facility] Name Value Range Interpretation Code Description Data Mary rce(s) Supporting Document(s) POC NOVA GLU 170 mg/dL (70-99) H [facility] [place] [facility] [place] PERFORMED BY [facility] CLINICAL STAFF ID Date Data Source [id number] 02/20/2020 07:24:00 AM EST [facility] ([facility]) Name Value Range Interpretation Code Description Data Mary rce(s) Supporting Document(s) Laboratory test finding (navigational concept) Laboratory test result [facility] ([facility]) THIS ASSAY AMPLIFIES AND DETECTS THE TAR GET RNA USING REAL-TIME PCR. NEGATIVE 2019_NCOV RT-PCR RESULTS DO NOT PRECLUDE 2019_NCOV INFECTION AND SHOULD NOT BE USED THE SOLE BASIS FOR PATIENT MANAGEMENT DECISIONS. Specimen Description Laboratory test result [facility] ([facility]) Employed In [facility] Laboratory test result [facility] ([facility]) Laboratory comment [Text] in Report Narrative Laboratory test result [facility] ([facility]) THE [place] FDA HAS MADE THIS TEST AVAILABL E UNDER AN EMERGENCY USE AUTHORIZATION (EUA) FOR THE DETECTION AND/OR DIAGNOSIS OF THE VIRUS THAT CAUSES COVID-19. EMAILED TO [facility] IC AT 0625 on [phone] First Test Laboratory test result [facility] ([facility]) Illness or injury onset date and time Laboratory test result [facility] ([facility]) Hospitalized Laboratory test result MEDE NT ([facility]) Symptomatic Laboratory test result MEDEN T ([facility]) Laboratory test result [facility] ([facility]) Icu Laboratory test result [facility] ([facility]) [facility] Laboratory test result [facility] ([facility]) ID Date Data Source [id number] 02/20/2020 04:00:51 AM EST [facility] [place] [facility] Name Value Range Interpretation Code Description Data Mary rce(s) Supporting Document(s) WBC 8.6 10*3/uL (4.1-11.0) [facility] [place] [facility] [place] RBC 3.69 10*6/uL (4.00-5.40) L [facility] [place] [facility] HGB 10.2 g/dL (12.0-16.0) L [facility] [place] [facility] [place] HCT 30.2 % (36.0-47.0) L [facility] [place] [facility] [place] PERFORMED AT [address] [place] [address] [place] [address] MCV 81.9 fL (80.0-95.0) [facility] [place] [facility] [place] MCH 27.8 pg (27.0-32.0) [facility] [place] [facility] [place] MCHC 33.9 g/dL (32.0-36.0) [facility] [place] [facility] [place] RDW 16.4 % (10.5-14.5) H [facility] [place] [facility] [place] PLT 430 10*3/uL (150-450) [facility] [place] [facility] [place] MPV 7.7 fL (7.1-10.7) [facility] [place] kylie CED[place] ID Date Data Source [id number] 02/20/2020 12:00:00 AM EST [facility] [place] kylie [facility] Name Value Range Interpretation Code Description Data Mary rce(s) Supporting Document(s) SARS coronavirus 2 RNA [Presence] in Res piratory specimen by CHLOE with probe detection [facility] [place] [facility] [place] This lab was reported by [facility] [place]. ID Date Data Source [id number] 02/20/2020 06:30:58 AM EST [facility] [place] kylie [place] Name Value Range Interpretation Code Description Data Mary rce(s) Supporting Document(s) SPECIMEN DESCRIPTION [facility] [place] COVID19 RESULT (NDET) [facility] [place] kylie [place] THIS ASSAY AMPLIFIES AND DETECTSTHE TARG ET RNA USING REAL-TIME PCR.NEGATIVE 2019_NCOV RT-PCR RESULTS DONOT PRECLUDE 2019_NCOV INFECTION ANDSHOULD NOT BE USED THE SOLE BASISFOR PATIENT MANAGEMENT DECISIONS. COMMENT [facility] [place] kylie [place] UNDER AN EMERGENCY USE AUTHORIZATION(EUA ) FOR THE DETECTION AND/OR DIAGNOSISOF THE VIRUS THAT CAUSES COVID-19.EMAILED TO [facility] IC AT 9735 ON [phone] FIRST TEST [facility] [place] [facility] [place] EMPLOYED IN HLTHCARE [facility] [place] SYMPTOMATIC [facility] [place] [facility] [place] Smith DATE OF SYMPT ONSET [facility] [place] HOSPITALIZED [facility] [place] [facility] [place] [facility] ICU [facility] [place] [facility] [place] CONGREGATE CARE SET [facility] [place] [facility] [place] [facility] [place] ID Date Data Source [id number] 02/19/2020 06:08:42 PM EST [facility] [place] kylie [facility] Name Value Range Interpretation Code Description Data Mary rce(s) Supporting Document(s) POC NOVA GLU 163 mg/dL (70-99) H [facility] [place] [facility] F[place]ha [place] PERFORMED BY [facility] CLINICAL STAFF ID Date Data Source [id number] 02/19/2020 01:40:30 PM EST [facility] NT INFORMATIONPatient MRN Name Date of Age Gend*PT [id number] Tatianna Soto 1965 54 years F IPPT Location Admission Date/Time Visit ID Attending [id number] 02/05/20 0417 --- --- EPI ID CSN Admitting Provider [id number] Dain Sanford MD([id number])Surgical Discharge SummaryTatianna SotoMRN: [id number] date: 02/05/2020Admitting Physician: TIMA Borregoischarge date and [...] 01/24/2020 Added automatically from request for surgery [id number] Peripheral vascular disease 11/20/2019 Coronary artery disease involving [place] coronary artery of [place] heartwithout angina pectoris 05/11/2019 Heavy cigarette smoker [...] Insulin Syringe-Needle U-100 USE THREE TIMES A DAY02/15B-D ULTRAFINE III SHORT PEN 31G X 8 [...] Take 325 mg by mouth daily with wsrfazkri91/31lisinopril 5 MG tabletCommonly known as: PRINIVIL,ZESTRIL Take [...] Get Your MedicationsThese medications were sent to [facility] - [place], [place] - [address] [place] [id number] Chlorhexidine Gluconate (Dressing) Misc heparin 100 UNIT/ML Soln meropenem 1 g injection normal saline flush 0.9 % Soln injectionThese medications were sent to [facility] - [place], [place] - [address] [place] [address] ASPIRIN ADULT 325 MG tablet bisacodyl 10 [...] ARTERIAL, FEMORAL TO POPLITEAL, LEFT (Left)Significant Diagnostic Studies:[address] [address]Ylvavrq Name: Tatianna MccarthyB: 1965Sex: FOrdering Provider: HAYLEE Paredes Prov: HAYLEE Castro Provider:Procedure Performed: MRI LOW EXT NO JNT WO CONTRAST LEFTExam Date: 02/08/2020 15:20MRN: [id number] Number: [id number] Class: PROCEDURE INFORMATION:Exam: MR Left Lower Extremity [...] by: ANDRE ROLDAN MD on 02/08/2020 16:32:59[place], [place] [address]Patient Name: Tatianna MccarthyB: 1965Sex: FOrdering Provider: HAYLEE FLANNERYuthorizing Prov: HAYLEE BHAKTAEReferring Provider:Procedure Performed: MRI LOW EXT NO JNT WO CONTRAST RIGHTExam Date: 02/06/2020 20:23MRN: [id number] Number: [id number] Class: PROCEDURE INFORMATION:Exam: MR Right Lower Extremity [...] the 5th metatarsal stump on STIR and F7yusowgrs images. There are residual phalanges of the [...] by: ALEXANDRO FARR MD on 02/06/2020 22:43:12 [place], [place] [address]Patient Name: TATIANNA MCCARTHYB: 1965Sex: FOrdering Provider: EMIL Caruso Prov: EMIL Felix Provider:Procedure Performed: CT ANGIOGRAM ABDOMINAL AORTA AND BILATERAL RUNOFFExam Date: 02/05/2020 09:25MRN: [id number] Number: [id number] Class: InpatientAccount #: [id number] Reason for Exam: Arterial embolism, lower extremity [...] her wires removed.Heart: Regular rate and rhythm S1-P0Buwhb: CTA bilaterally throughout without wheezes rales or [...] ID office follow-up: In 3 weeks with BLADDER CLEANER Other physicians involved: Dr. Sanford, (podiatry in [place]) Notes for ID provider use:54-year-old female with history of COPD, GERD, HTN, CAD with bypass, HLD, typeII DM with peripheral neuropathy, PAD with claudication, bilateral foot woundsfollows at wound care in [place]. Underwent right fifth metatarsal resectionin September with mold chipper, Dr. Mccarty in [place]. Then in December a left heelbiopsy that showed osteomyelitis. Wound culture at that time also grewpseudomonas, unclear whether she received any antibiotic treatment for this. Transferred from [facility] with acute right foot and calf pain,ischemia. [...] outpatient left heel bone biopsy with acute HOZVVQO28/21 right fifth toe culture with Peptostreptococcus species and gram-positivecocci on Gram stain.02/05 right lower extremity MRI osteomyelitis fourth and fifth toes andmetatarsal heads Carolyn Salas NP Discharged Condition:stableDisposition: Home or Self CareSignature: Haylee Barba PADate: February 16, 2020Time: 2:44 PM Name Value Range Interpretation Code Description Data Mary rce(s) Supporting Document(s) ID Date Data Source [id number] 02/19/2020 01:10:00 PM EST [facility] ([facility]) Name Value Range Interpretation Code Description Data Mary rce(s) Supporting Document(s) Sodium [Moles/volume] in Serum or Plasma 144 mmol/L 136-145 [facility] ([facility]) Potassium [Moles/volume] in Serum or Plasma 4.1 mmol/L 3.6-5.2 [facility] ([facility]) Chloride [Moles/volume] in Serum or Plasma 105 mmol/L 100-108 [facility] ([facility]) Creatinine [Mass/volume] in Serum or Plasma 0.60 mg/dL 0.60-1.00 [facility] ([facility]) Urea nitrogen [Mass/volume] in Serum or Plasma 11 mg/dL 7-24 [facility] ([facility]) Carbon dioxide, total [Moles/volume] in Serum or Plasma 32 mmol/L 22 -31 [facility] ([facility]) Anion gap in Serum or Plasma 7 mmol/L 7-16 [facility] ([facility]) Glucose [Mass/volume] in Serum or Plasma 193 mg/dL 70-99 [facility] ([facility]) Urea nitrogen/Creatinine [Mass Ratio] in Serum or Plasma 18.3 1 0.0-20.0 [facility] ([facility]) Calcium [Mass/volume] in Serum or Plasma 8.9 mg/dL 8.4-10.2 [facility] ([facility]) Glomerular filtration rate/1.73 sq M pre dicted among non-blacks [Volume Rate/Area] in Serum or Plasma by Creatinine-based formula (MDRD) Laboratory test result [facility] ([facility]) Glomerular filtration rate/1.73 sq M pre dicted among non-blacks [Volume Rate/Area] in Serum or Plasma by Creatinine-based formula (MDRD) Laboratory test result [facility] ([facility]) -- NORMAL KIDNEY FUNCTION OR MILD [...] Laboratory test result [facility] ([facility]) ID Date Data Source [id number] 02/19/2020 12:08:31 PM EST [facility] Name Value Range Interpretation Code Description Data Mary rce(s) Supporting Document(s) POC NOVA GLU 317 mg/dL (70-99) H [facility] [place] [facility] [place] [facility] BY [facility] CLINICAL STAFF ID Date Data Source [id number] 02/19/2020 07:42:28 AM EST [facility] [place] [facility] [place] Name Value Range Interpretation Code Description Data Mary rce(s) Supporting Document(s) POC NOVA GLU 231 mg/dL (70-99) H [facility] [place] [facility] [place] [facility] BY [facility] CLINICAL STAFF ID Date Data Source [id number] 02/19/2020 08:10:37 AM EST [facility] [place] [facility] Name Value Range Interpretation Code Description Data Mary rce(s) Supporting Document(s) SODIUM 144 mmol/L (136-145) [facility] [place] [facility] POTASSIUM 4.1 mmol/L (3.6-5.2) [facility] [place] [facility] CHLORIDE 105 mmol/L (100-108) [facility] [place] [facility] CO2 32 mmol/L (22-31) H [facility] [place] [facility] [place] ANION GAP 7 mmol/L (7-16) [facility] [place] [facility] UREA NITROGEN 11 mg/dL (7-24) [facility] [place] [facility] CREATININE 0.60 mg/dL (0.60-1.00) [facility] [place] [facility] BUN/CREAT RATIO 18.3 RATIO (10.0-20.0) [facility] GLUCOSE 193 mg/dL (70-99) H [facility] [place] [facility] CALCIUM 8.9 mg/dL (8.4-10.2) [facility] [place] [facility] GFR >60 ml/min/1.73m2 (>59) [facility] [place] [facility] GFR ( AMER) >60 ml/min/1.73m2 (>59) [facility] [place] [facility] GFR INTERPRETATION [facility] --NORMAL KIDNEY FUNCTION OR MILD DISEASE - GFR >OR= 60CHRONIC KIDNEY DISEASE - GFR 15 - 59RENAL FAILURE - GFR <15 Est. GFR calculation based on the MDRDstudy equation, which assumes a steadystate for creatinine. Est. GFR should notbe used for medication dosing. ID Date Data Source [id number] 02/19/2020 01:01:00 AM EST [facility] ([facility]) Name Value Range Interpretation Code Description Data Mary rce(s) Supporting Document(s) Hemoglobin A1c/Hemoglobin.total in Blood 8.3 % 4.0-6.0 [facility] ([facility]) Performed using Siemens Widener immunoassa y. Care must be taken when interpreting HbA1c results in patients with a hemoglobin variant or decreased erythrocyte lifespan. Values 5.7 - 6.4% suggest prediabetes. Values >=6.5% are diagnostic for diabetes. REFERENCE: DIABETES CARE 2018: 41(S13-S27). PERFORMED AT [address] [place] [id number] Est. Average Glucose 192 mg/dL [facility] ([facility]) ID Date Data Source [id number] 02/18/2020 07:31:11 PM EST [facility] Name Value Range Interpretation Code Description Data Mary rce(s) Supporting Document(s) POC NOVA GLU 262 mg/dL (70-99) H [facility] [place] [facility] PERFORMED BY [facility] CLINICAL STAFF ID Date Data Source [id number] 02/18/2020 08:02:30 PM EST [facility] Name Value Range Interpretation Code Description Data Mary rce(s) Supporting Document(s) HEMOGLOBIN A1C @ 8.3 % (4.0-6.0) H [facility] Performed using Siemens Widener immunoassa y.Care must be taken when interpreting [id number] in patients with a hemoglobin variantor decreased erythrocyte lifespan. Values 5.7 - 6.4% suggest prediabetes.Values >=6.5% are diagnostic for diabetes.REFERENCE: DIABETES CARE 2018: 41(S13-S27).PERFORMED AT [address] [place] [id number] EST [place] GLUCOSE 192 mg/dL [facility] ID Date Data Source [id number] 02/18/2020 06:56:55 PM EST [facility] Name Value Range Interpretation Code Description Data Mary rce(s) Supporting Document(s) WBC 10.1 10*3/uL (4.1-11.0) [facility] RBC 3.74 10*6/uL (4.00-5.40) L [facility] [place] [facility] HGB 10.3 g/dL (12.0-16.0) L [facility] [place] [facility] HCT 31.4 % (36.0-47.0) L [facility] [place] [facility] MCV 83.9 fL (80.0-95.0) [facility] [place] [facility] MCH 27.6 pg (27.0-32.0) [facility] [place] [facility] MCHC 32.9 g/dL (32.0-36.0) [facility] [place] [facility] RDW 16.0 % (10.5-14.5) H [facility] [place] [facility] PLT 469 10*3/uL (150-450) H [facility] [place] [facility] MPV 8.1 fL (7.1-10.7) [facility] [place] [facility] ID Date Data Source [id number] 02/18/2020 06:13:50 PM EST [facility] [place] [facility] Name Value Range Interpretation Code Description Data Mary rce(s) Supporting Document(s) POC NOVA GLU 127 mg/dL (70-99) H [facility] [place] [facility] [place] [facility] CL[facility] STA[facility] ID Date Data Source [id number] 02/18/2020 06:13:45 PM EST [facility] [place] [facility] Name Value Range Interpretation Code Description Data Mary rce(s) Supporting Document(s) POC NOVA GLU 69 mg/dL (70-99) L [facility] [place] [facility] [place] [facility] ST[facility] ID Date Data Source [id number] 02/18/2020 06:13:40 PM EST [facility] [place] [facility] Name Value Range Interpretation Code Description Data Mary rce(s) Supporting Document(s) POC NOVA GLU 48 mg/dL (70-99) LL [facility] [place] [facility] [place] [facility] STA[facility] ID Date Data Source [id number] 02/18/2020 04:55:12 PM EST [facility] [place] [facility] Name Value Range Interpretation Code Description Data Mary rce(s) Supporting Document(s) POC NOVA GLU 43 mg/dL (70-99) LL [facility] [place] [facility] [place] [facility] CL[facility] STA[facility] ID Date Data Source [id number] 02/16/2020 11:32:00 AM EDT [facility] ([facility]) Name Value Range Interpretation Code Description Data Mary rce(s) Supporting Document(s) Laboratory test finding (navigational concept) 315 mg/dL 70-99 [facility] ([facility]) PERFORMED BY [facility] CLIN[facility] STA[facility] ID Date Data Source [id number] 02/16/2020 07:32:56 AM EDT [facility] [place] [facility] Name Value Range Interpretation Code Description Data Mary rce(s) Supporting Document(s) POC NOVA GLU 315 mg/dL (70-99) H [facility] [place] [facility] [place] [facility] ST[facility] ID Date Data Source [id number] 02/15/2020 05:13:38 PM EDT [facility] [place] [facility] Name Value Range Interpretation Code Description Data Mary rce(s) Supporting Document(s) POC NOVA GLU 265 mg/dL (70-99) H [facility] [place] [facility] [place] [facility] STA[facility] ID Date Data Source [id number] 02/15/2020 12:25:02 PM EDT [facility] [place] [facility] Name Value Range Interpretation Code Description Data Mary rce(s) Supporting Document(s) POC NOVA GLU 318 mg/dL (70-99) H [facility] [place] [facility] [place] [facility] STA[facility] ID Date Data Source [id number] 02/15/2020 11:03:00 AM EDT [facility] ([facility]) Name Value Range Interpretation Code Description Data Mary rce(s) Supporting Document(s) Potassium [Moles/volume] in Serum or Plasma 4.3 mmol/L 3.6-5.2 [facility] ([facility]) Carbon dioxide, total [Moles/volume] in Serum or Plasma 33 mmol/L 22 -31 [facility] ([facility]) Chloride [Moles/volume] in Serum or Plasma 107 mmol/L 100-108 [facility] ([facility]) Sodium [Moles/volume] in Serum or Plasma 142 mmol/L 136-145 [facility] ([facility]) Creatinine [Mass/volume] in Serum or Plasma 0.61 mg/dL 0.60-1.00 [facility] ([facility]) Anion gap in Serum or Plasma 2 mmol/L 7-16 [facility] ([facility]) Urea nitrogen [Mass/volume] in Serum or Plasma 18 mg/dL 7-24 [facility] ([facility]) Calcium [Mass/volume] in Serum or Plasma 8.6 mg/dL 8.4-10.2 [facility] ([facility]) Urea nitrogen/Creatinine [Mass Ratio] in Serum or Plasma 29.5 1 0.0-20.0 [facility] ([facility]) Glucose [Mass/volume] in Serum or Plasma 224 mg/dL 70-99 [facility] ([facility]) Glomerular filtration rate/1.73 sq M pre dicted among non-blacks [Volume Rate/Area] in Serum or Plasma by Creatinine-based formula (MDRD) Laboratory test result [facility] ([facility]) -- NORMAL KIDNEY FUNCTION OR MILD [...] Laboratory test result [facility] ([facility]) Glomerular filtration rate/1.73 sq M pre dicted among non-blacks [Volume Rate/Area] in Serum or Plasma by Creatinine-based formula (MDRD) Laboratory test result [facility] ([facility]) ID Date Data Source [id number] 02/15/2020 09:46:00 AM EDT [facility] ([facility]) Name Value Range Interpretation Code Description Data Mary rce(s) Supporting Document(s) Leukocytes [#/volume] in Blood by Automated count 10.3 10*3/uL 4.1-11 .0 [facility] ([facility]) Erythrocytes [#/volume] in Blood by Automated count 3.33 10*6/uL 4.00 -5.40 [facility] ([facility]) Hemoglobin [Mass/volume] in Blood 9.2 g/dL 12.0-16.0 [facility] ([facility]) Hematocrit [Volume Fraction] [...] [facility]) ID Date Data Source [id number] 02/15/2020 08:48:59 AM EDT [facility] [place] [facility] Name Value Range Interpretation Code Description Data Mary rce(s) Supporting Document(s) POC NOVA GLU 239 mg/dL (70-99) H [facility] [place] [facility] [place] [facility] ID Date Data Source [id number] 02/15/2020 07:03:38 AM EDT [facility] [place] [facility] Name Value Range Interpretation Code Description Data Mary rce(s) Supporting Document(s) SODIUM 142 mmol/L (136-145) [facility] [place] [facility] POTASSIUM 4.3 mmol/L (3.6-5.2) [facility] [place] [facility] CHLORIDE 107 mmol/L (100-108) [facility] [place] [facility] CO2 33 mmol/L (22-31) H [facility] [place] [facility] ANION GAP 2 mmol/L (7-16) L [facility] [place] [facility] UREA NITROGEN 18 mg/dL (7-24) [facility] [place] [facility] CREATININE 0.61 mg/dL (0.60-1.00) [facility] [place] [facility] BUN/CREAT RATIO 29.5 RATIO (10.0-20.0) H [facility] GLUCOSE 224 mg/dL (70-99) H [facility] [place] [facility] CALCIUM 8.6 mg/dL (8.4-10.2) [facility] [place] [facility] GFR >60 ml/min/1.73m2 (>59) [facility] [place] [facility] GFR ( AMER) >60 ml/min/1.73m2 (>59) [facility] [place] [facility] GFR INTERPRETATION [facility] --NORMAL KIDNEY FUNCTION OR MILD DISEASE - GFR >OR= 60CHRONIC KIDNEY DISEASE - GFR 15 - 59RENAL FAILURE - GFR <15 Est. GFR calculation based on the MDRDstudy equation, which assumes a steadystate for creatinine. Est. GFR should notbe used for medication dosing. ID Date Data Source [id number] 02/15/2020 05:47:32 AM EDT [facility] [place] [facility] Name Value Range Interpretation Code Description Data Mary rce(s) Supporting Document(s) WBC 10.3 10*3/uL (4.1-11.0) [facility] [place] [facility] RBC 3.33 10*6/uL (4.00-5.40) L [facility] [place] [facility] HGB 9.2 g/dL (12.0-16.0) L [facility] [place] [facility] HCT 27.8 % (36.0-47.0) L [facility] [place] [facility] MCV 83.5 fL (80.0-95.0) [facility] [place] [facility] MCH 27.6 pg (27.0-32.0) [facility] [place] [facility] MCHC 33.1 g/dL (32.0-36.0) [facility] [place] [facility] RDW 16.1 % (10.5-14.5) H [facility] [place] [facility] PLT 295 10*3/uL (150-450) [facility] [place] [facility] MPV 8.4 fL (7.1-10.7) [facility] [place] [facility] ID Date Data Source [id number] 02/14/2020 06:16:36 PM EDT [facility] [place] [facility] Name Value Range Interpretation Code Description Data Mary rce(s) Supporting Document(s) POC NOVA GLU 156 mg/dL (70-99) H [facility] [place] [facility] [place] [facility] ID Date Data Source [id number] 02/14/2020 01:03:00 PM EDT [facility] [place] [facility] Name Value Range Interpretation Code Description Data Mary rce(s) Supporting Document(s) POC NOVA GLU 285 mg/dL (70-99) H [facility] [place] [facility] [place] [facility] ID Date Data Source [id number] 02/14/2020 09:03:27 AM EDT [facility] [place] [facility] Name Value Range Interpretation Code Description Data Mary rce(s) Supporting Document(s) POC NOVA GLU 263 mg/dL (70-99) H [facility] [place] [facility] [place] [facility] ID Date Data Source [id number] 02/14/2020 06:16:22 AM EDT [facility] [place] [facility] Name Value Range Interpretation Code Description Data Mary rce(s) Supporting Document(s) SODIUM 141 mmol/L (136-145) [facility] [place] [facility] POTASSIUM 4.2 mmol/L (3.6-5.2) [facility] [place] [facility] CHLORIDE 106 mmol/L (100-108) [facility] [place] [facility] CO2 30 mmol/L (22-31) [facility] [place] [facility] ANION GAP 5 mmol/L (7-16) L [facility] [place] [facility] UREA NITROGEN 18 mg/dL (7-24) [facility] [place] [facility] CREATININE 0.62 mg/dL (0.60-1.00) [facility] [place] [facility] BUN/CREAT RATIO 29.0 RATIO (10.0-20.0) H [facility] GLUCOSE 250 mg/dL (70-99) H [facility] [place] [facility] CALCIUM 8.5 mg/dL (8.4-10.2) [facility] [place] [facility] GFR >60 ml/min/1.73m2 (>59) [facility] [place] [facility] GFR ( AMER) >60 ml/min/1.73m2 (>59) [facility] [place] [facility] GFR INTERPRETATION [facility] --NORMAL KIDNEY FUNCTION OR MILD DISEASE - GFR >OR= 60CHRONIC KIDNEY DISEASE - GFR 15 - 59RENAL FAILURE - GFR <15 Est. GFR calculation based on the MDRDstudy equation, which assumes a steadystate for creatinine. Est. GFR should notbe used for medication dosing. ID Date Data Source [id number] 02/14/2020 05:46:26 AM EDT [facility] [place] [facility] Name Value Range Interpretation Code Description Data Mary rce(s) Supporting Document(s) WBC 10.4 10*3/uL (4.1-11.0) [facility] [place] [facility] RBC 3.38 10*6/uL (4.00-5.40) L [facility] [place] [facility] HGB 9.5 g/dL (12.0-16.0) L [facility] [place] [facility] HCT 27.9 % (36.0-47.0) L [facility] [place] [facility] MCV 82.7 fL (80.0-95.0) [facility] [place] [facility] MCH 28.1 pg (27.0-32.0) [facility] [place] [facility] MCHC 34.0 g/dL (32.0-36.0) [facility] [place] [facility] RDW 16.0 % (10.5-14.5) H [facility] [place] [facility] PLT 287 10*3/uL (150-450) [facility] [place] [facility] MPV 8.6 fL (7.1-10.7) [facility] [place] [facility] ID Date Data Source [id number] 02/14/2020 04:33:00 AM EDT [facility] ([facility]) Name Value Range Interpretation Code Description Data Mary rce(s) Supporting Document(s) Specimen Expiration Date Laboratory test result [facility] ([facility]) Patient Abo/Rh Laboratory test result ME [place] ([facility]) Testing site Laboratory test result MEDE NT ([facility]) Antibody Screen Laboratory test result M [place] ([facility]) Blood product unit ID [#] Laboratory test result [facility] ([facility]) Blood Component Type Laboratory test result [facility] ([facility]) Blood bank comment Laboratory test result [facility] ([facility]) BLOOD TYPE CONFIRMED. Blood product unit ID [#] 0 [facility] ([facility]) Laboratory test finding (navigational concept) Laboratory test result [facility] ([facility]) Transfusion status Laboratory test result [facility] ([facility]) Blood product unit ID [#] Laboratory test result [facility] ([facility]) Crossmatch Laboratory test result [facility] ([facility]) Blood Component Type Laboratory test result [facility] ([facility]) Laboratory test finding (navigational concept) Laboratory test result [facility] ([facility]) Blood product unit ID [#] 0 [facility] NT ([facility]) Transfusion status Laboratory test result [facility] ([facility]) Crossmatch Laboratory test result [facility] ([facility]) ID Date Data Source [id number] 02/13/2020 05:54:11 PM EDT [facility] [place] [facility] Name Value Range Interpretation Code Description Data Mary rce(s) Supporting Document(s) POC NOVA GLU 216 mg/dL (70-99) H [facility] [place] [facility] [place] [facility]FOR[facility] BY [facility] CLIN[facility] STA[facility] ID Date Data Source [id number] 02/13/2020 12:54:38 PM EDT [facility] INFORMATIONPatient MRN Name Date of Age Gend*PT [id number] Tatianna Soto 1965 54 years F IPPT Location Admission Date/Time Visit ID Attending [id number] 02/05/20 0417 --- Dain Sanford MD([id number]) EPI ID CSN Admitting Provider [id number] Dain Sanford MD([id number]) [place] [address] OPERATIVE REPORT OPNAME: TATIANNA SOTO#: [id number] #: [id number] ADMISSION DATE: 02/05/2020DOB: [birth year] SEX: F PT TYPE: I VascACCT #: [id number] CARE PHYSICIAN: TOM CLIFF-SURBEDATE OF OPERATION: 02/12/2020PREOPERATIVE DIAGNOSIS:Left foot critical limb [...] portions of the procedure.BETZY Borrego/CARMINE Job #: [id number] DOC #: [id number] Name Value Range Interpretation Code Description Data Mary rce(s) Supporting Document(s) ID Date Data Source [id number] 02/13/2020 12:21:31 PM EDT [facility] [place] [facility] Name Value Range Interpretation Code Description Data Mary rce(s) Supporting Document(s) POC NOVA GLU 156 mg/dL (70-99) H [facility] [place] [facility] [place] [facility] STA[facility] ID Date Data Source [id number] 02/13/2020 09:28:58 AM EDT [facility] [place] [facility] Name Value Range Interpretation Code Description Data Mary rce(s) Supporting Document(s) POC NOVA GLU 214 mg/dL (70-99) H [facility] [place] [facility] [place] [facility] ID Date Data Source [id number] 02/13/2020 08:50:29 AM EDT [facility] [place] [facility] Name Value Range Interpretation Code Description Data Mary rce(s) Supporting Document(s) POC NOVA GLU 187 mg/dL (70-99) H [facility] [place] [facility] [place] [facility] ST[facility] ID Date Data Source [id number] 02/13/2020 06:31:13 AM EDT [facility] [place] [facility] Name Value Range Interpretation Code Description Data Mary rce(s) Supporting Document(s) SODIUM 141 mmol/L (136-145) [facility] [place] [facility] POTASSIUM 4.0 mmol/L (3.6-5.2) [facility] [place] [facility] CHLORIDE 106 mmol/L (100-108) [facility] [place] [facility] CO2 32 mmol/L (22-31) H [facility] [place] [facility] ANION GAP 3 mmol/L (7-16) L [facility] [place] [facility] UREA NITROGEN 17 mg/dL (7-24) [facility] [place] [facility] CREATININE 0.77 mg/dL (0.60-1.00) [facility] [place] [facility] BUN/CREAT RATIO 22.1 RATIO (10.0-20.0) H [facility] GLUCOSE 179 mg/dL (70-99) H [facility] [place] [facility] CALCIUM 8.2 mg/dL (8.4-10.2) L [facility] [place] [facility] GFR >60 ml/min/1.73m2 (>59) [facility] [place] [facility] GFR ( AMER) >60 ml/min/1.73m2 (>59) [facility] [place] [facility] GFR INTERPRETATION [facility] --NORMAL KIDNEY FUNCTION OR MILD DISEASE - GFR >OR= 60CHRONIC KIDNEY DISEASE - GFR 15 - 59RENAL FAILURE - GFR <15 Est. GFR calculation based on the MDRDstudy equation, which assumes a steadystate for creatinine. Est. GFR should notbe used for medication dosing. ID Date Data Source [id number] 02/13/2020 06:06:49 AM EDT [facility] [place] [facility] Name Value Range Interpretation Code Description Data Mary rce(s) Supporting Document(s) WBC 11.5 10*3/uL (4.1-11.0) H [facility] [place] [facility] RBC 3.36 10*6/uL (4.00-5.40) L [facility] [place] [facility] HGB 9.2 g/dL (12.0-16.0) L [facility] [place] [facility] HCT 28.1 % (36.0-47.0) L [facility] [place] [facility] MCV 83.6 fL (80.0-95.0) [facility] [place] [facility] MCH 27.5 pg (27.0-32.0) [facility] [place] [facility] MCHC 32.8 g/dL (32.0-36.0) [facility] [place] [facility] RDW 16.0 % (10.5-14.5) H [facility] [place] [facility] PLT 269 10*3/uL (150-450) [facility] [place] [facility] MPV 8.4 fL (7.1-10.7) [facility] [place] [facility] ID Date Data Source [id number] 02/12/2020 08:04:33 PM EDT [facility] [place] [facility] Name Value Range Interpretation Code Description Data Mary rce(s) Supporting Document(s) POC NOVA GLU 143 mg/dL (70-99) H [facility] [place] [facility] [place] [facility] ST[facility] ID Date Data Source [id number] 02/12/2020 05:48:09 PM EDT [facility] [place] [facility] Name Value Range Interpretation Code Description Data Mary rce(s) Supporting Document(s) POC NOVA GLU 160 mg/dL (70-99) H [facility] [place] [facility] [place] [facility] ID Date Data Source [id number] 02/12/2020 02:47:59 PM EDT [facility] NT INFORMATIONPatient MRN Name Date of Age Gend*PT [id number] SotoTatianna 1965 54 years F IPPT Location Admission Date/Time Visit ID Attending Provider --- --- --- --- EPI ID CSN Admitting Provider [id number] ---AirwayPatient location during procedure: ORUrgency: electiveDifficult airway: noAdvanced airway equipment used: noStaffingPerformed by: Nelly Maloney, CRNAAnesthesiologist: Truong Sanches, Meloications and Patient ConditionIndications for airway management: anesthesiaPreoxygenated: [...] to lips: 21 cmPlacement verified by: + [id number] view: grade I - full view of glottis Name Value Range Interpretation Code Description Data Mary rce(s) Supporting Document(s) ID Date Data Source [id number] 02/12/2020 12:49:35 PM EDT [facility] [place] [facility] Name Value Range Interpretation Code Description Data Mary rce(s) Supporting Document(s) POC NOVA GLU 232 mg/dL (70-99) H [facility] [place] [facility] [place] [facility] ID Date Data Source [id number] 02/12/2020 02:38:33 PM EDT [facility] [place] [facility] Name Value Range Interpretation Code Description Data Mary rce(s) Supporting Document(s) POC NOVA GLU 229 mg/dL (70-99) H [facility] [place] [facility] [place] [facility] ID Date Data Source [id number] 02/12/2020 09:14:58 AM EDT [facility] [place] [facility] Name Value Range Interpretation Code Description Data Mary rce(s) Supporting Document(s) POC NOVA GLU 233 mg/dL (70-99) H [facility] [place] [facility] [place] [facility] ID Date Data Source [id number] 02/12/2020 05:55:00 AM EDT [facility] ([facility]) Name Value Range Interpretation Code Description Data Mayr rce(s) Supporting Document(s) Laboratory test finding (navigational concept) Laboratory test result [facility] ([facility]) THIS ASSAY AMPLIFIES AND DETECTS THE TAR [...] VIRUS THAT CAUSES COVID-19. EMAILED RESULTS TO [facility] AT [address] [phone] [phone] Employed [employer] Laboratory test result [facility] ([facility] [...] test result [facility] ([facility] test result [facility] ([facility]) ID Date Data Source [id number] 02/12/2020 04:42:48 AM EDT [facility] [place] [facility] Name Value Range Interpretation Code Description Data Mary rce(s) Supporting Document(s) SODIUM 140 mmol/L (136-145) [facility] [place] [facility] POTASSIUM 4.3 mmol/L (3.6-5.2) [facility] [place] [facility] CHLORIDE 103 mmol/L (100-108) [facility] [place] [facility] CO2 30 mmol/L (22-31) [facility] [place] [facility] ANION GAP 7 mmol/L (7-16) [facility] [place] [facility] UREA NITROGEN 19 mg/dL (7-24) [facility] [place] [facility] CREATININE 0.82 mg/dL (0.60-1.00) [facility] [place] [facility] BUN/CREAT RATIO 23.2 RATIO (10.0-20.0) H [facility] GLUCOSE 284 mg/dL (70-99) H [facility] [place] [facility] CALCIUM 8.3 mg/dL (8.4-10.2) L [facility] [place] [facility] GFR >60 ml/min/1.73m2 (>59) [facility] [place] [facility] GFR ( AMER) >60 ml/min/1.73m2 (>59) [facility] [place] [facility] GFR INTERPRETATION [facility] --NORMAL KIDNEY FUNCTION OR MILD DISEASE - GFR >OR= 60CHRONIC KIDNEY DISEASE - GFR 15 - 59RENAL FAILURE - GFR <15 Est. GFR calculation based on the MDRDstudy equation, which assumes a steadystate for creatinine. Est. GFR should notbe used for medication dosing. ID Date Data Source [id number] 02/12/2020 04:03:40 AM EDT [facility] [place] [facility] Name Value Range Interpretation Code Description Data Mary rce(s) Supporting Document(s) WBC 10.1 10*3/uL (4.1-11.0) [facility] [place] [facility] RBC 3.86 10*6/uL (4.00-5.40) L [facility] [place] [facility] HGB 10.6 g/dL (12.0-16.0) L [facility] [place] [facility] HCT 31.5 % (36.0-47.0) L [facility] [place] [facility] MCV 81.6 fL (80.0-95.0) [facility] [place] [facility] MCH 27.4 pg (27.0-32.0) [facility] [place] [facility] MCHC 33.6 g/dL (32.0-36.0) [facility] [place] [facility] RDW 16.0 % (10.5-14.5) H [facility] [place] [facility] PLT 269 10*3/uL (150-450) [facility] [place] [facility] MPV 8.3 fL (7.1-10.7) [facility] [place] [facility] ID Date Data Source [id number] 02/12/2020 12:00:00 AM EDT [facility] [place] [facility] Name Value Range Interpretation Code Description Data Mary rce(s) Supporting Document(s) SARS coronavirus 2 RNA [Presence] in Res piratory specimen by CHLOE with probe detection [facility] [place] This lab was reported by [facility] [place] [facility]. ID Date Data Source [id number] 02/12/2020 02:00:35 AM EDT [facility] [place] [facility] [place] Name Value Range Interpretation Code Description Data Mary rce(s) Supporting Document(s) SPECIMEN DESCRIPTION [facility] COVID19 RESULT (NDET) [facility] THIS ASSAY AMPLIFIES AND DETECTSTHE TARG ET RNA USING REAL-TIME PCR.NEGATIVE 2019_NCOV RT-PCR RESULTS DONOT PRECLUDE 2019_NCOV INFECTION ANDSHOULD NOT BE USED THE SOLE BASISFOR PATIENT MANAGEMENT DECISIONS. COMMENT [facility] UNDER AN EMERGENCY USE AUTHORIZATION(EUA ) FOR THE DETECTION AND/OR DIAGNOSISOF THE VIRUS THAT CAUSES COVID-19.EMAILED RESULTS TO [facility] IC AT [id number] ON [id number]. [id number] FIRST TEST [facility] [place] [facility] EMPLOYED IN HLTHCARE Lab [facility] of [place] SYMPTOMATIC [facility] [place] [facility] DATE OF SYMPT ONSET Lab [facility] of [place] HOSPITALIZED [facility] [place] [facility] ICU [facility] [place] [facility] SET Lab [facility] [place] [facility] [place] [facility] ID Date Data Source [id number] 02/11/2020 11:57:13 PM EDT [facility] [place] Name Value Range Interpretation Code Description Data Mary rce(s) Supporting Document(s) POC NOVA GLU 290 mg/dL (70-99) H [facility] [place] [facility] PERFORMED BY [facility] CLINICAL STAFF ID Date Data Source [id number] 02/11/2020 04:54:06 PM EDT [facility] [place] kylie CEDILLO Name Value Range Interpretation Code Description Data Mary rce(s) Supporting Document(s) POC NOVA GLU 287 mg/dL (70-99) H [facility] [place] [facility] PERFORMED BY [facility] CLINICAL STAFF ID Date Data Source [id number] 02/11/2020 04:19:00 PM EDT [facility] ([facility]) Name Value Range Interpretation Code Description Data Mary rce(s) Supporting Document(s) Specimen Description Laboratory test result [facility] ([facility]) Laboratory test finding (navigational concept) Laboratory test result [facility] ([facility]) Special Requests Laboratory test result [facility] ([facility]) Report Status Laboratory test result MED E[facility] ([facility]) ID Date Data Source [id number] 02/11/2020 02:14:58 PM EDT [facility] Name Value Range Interpretation Code Description Data Mary rce(s) Supporting Document(s) POC NOVA GLU 297 mg/dL (70-99) H [facility] [place] [facility] [facility] CLINICAL STAFF ID Date Data Source [id number] 02/11/2020 10:33:00 AM EDT [facility] ([facility]) Name Value Range Interpretation Code Description Data Mary rce(s) Supporting Document(s) Vancomycin [Mass/volume] in Serum or Plasma --trough 16.5 ug/mL 10.0- 20.0 [facility] ([facility]) ID Date Data Source [id number] 02/11/2020 10:30:00 AM EDT [facility] ([facility]) Name Value Range Interpretation Code Description Data Mary rce(s) Supporting Document(s) Magnesium [Mass/volume] in Serum or Plasma 1.9 mg/dL 1.7-2.4 [facility]) ID Date Data Source [id number] 02/11/2020 08:57:29 AM EDT Lab [facility] Name Value Range Interpretation Code Description Data Mary rce(s) Supporting Document(s) POC NOVA GLU 223 mg/dL (70-99) H [facility] [place] [facility] CLINICAL STAFF ID Date Data Source [id number] 02/11/2020 06:34:06 AM EDT Lab [facility] Name Value Range Interpretation Code Description Data Mary rce(s) Supporting Document(s) VANCOMYCIN TROUGH 16.5 ug/mL (10.0-20.0) [facility] ID Date Data Source [id number] 02/11/2020 06:31:31 AM EDT [facility] Name Value Range Interpretation Code Description Data Mary rce(s) Supporting Document(s) MAGNESIUM 1.9 mg/dL (1.7-2.4) [facility] ID Date Data Source [id number] 02/11/2020 06:31:31 AM EDT [facility] Name Value Range Interpretation Code Description Data Mary rce(s) Supporting Document(s) SODIUM 141 mmol/L (136-145) [facility] [place] [facility] [place] POTASSIUM 4.2 mmol/L (3.6-5.2) [facility] [place] [facility] [place] CHLORIDE 107 mmol/L (100-108) [facility] [place] [facility] [place] CO2 29 mmol/L (22-31) [facility] [place] [facility] [place] ANION GAP 5 mmol/L (7-16) L [facility] [place] [facility] [place] UREA NITROGEN 19 mg/dL (7-24) [facility] [place] [facility] [place] CREATININE 0.76 mg/dL (0.60-1.00) [facility] [place] [facility] [place] BUN/CREAT RATIO 25.0 RATIO (10.0-20.0) H [facility] [place] GLUCOSE 234 mg/dL (70-99) H [facility] [place] [facility] [place] CALCIUM 8.2 mg/dL (8.4-10.2) L [facility] [place] [facility] [place] GFR >60 ml/min/1.73m2 (>59) [facility] [place] [facility] [place] GFR ( AMER) >60 ml/min/1.73m2 (>59) [facility] [place] [facility] [place] GFR INTERPRETATION [facility] [place] --NORMAL KIDNEY FUNCTION OR MILD DISEASE - GFR >OR= 60CHRONIC KIDNEY DISEASE - GFR 15 - 59RENAL FAILURE - GFR <15 Est. GFR calculation based on the MDRDstudy equation, which assumes a steadystate for creatinine. Est. GFR should notbe used for medication dosing. ID Date Data Source [id number] 02/11/2020 05:48:50 AM EDT [facility] [place] [facility] [place] Name Value Range Interpretation Code Description Data Mary rce(s) Supporting Document(s) WBC 10.2 10*3/uL (4.1-11.0) [facility] [place] [facility] [place] RBC 3.73 10*6/uL (4.00-5.40) L [facility] [place] [facility] [place] HGB 10.3 g/dL (12.0-16.0) L [facility] [place] [facility] [place] HCT 30.7 % (36.0-47.0) L [facility] [place] [facility] [place] MCV 82.2 fL (80.0-95.0) [facility] [place] [facility] [place] MCH 27.7 pg (27.0-32.0) [facility] [place] [facility] [place] MCHC 33.7 g/dL (32.0-36.0) [facility] [place] [facility] [place] RDW 15.9 % (10.5-14.5) H [facility] [place] [facility] [place] PLT 228 10*3/uL (150-450) [facility] [place] [facility] [place] MPV 8.5 fL (7.1-10.7) [facility] [place] [facility] [place] ID Date Data Source [id number] 02/10/2020 07:54:00 PM EDT [facility] ([facility]) Name Value Range Interpretation Code Description Data Mary rce(s) Supporting Document(s) Special Requests Laboratory test result [facility] ([facility]) Specimen Description Laboratory test result [facility] ([facility]) Report Status Laboratory test result MED E[facility] ([facility]) Laboratory test finding (navigational concept) Laboratory test result [facility] ([facility]) ID Date Data Source [id number] 02/10/2020 05:16:39 PM EDT [facility] [place] [facility] Name Value Range Interpretation Code Description Data Mary rce(s) Supporting Document(s) POC NOVA GLU 298 mg/dL (70-99) H [facility] [place] [facility] [facility] CLINICAL STAFF ID Date Data Source [id number] 02/10/2020 03:27:38 PM EDT [facility] [place] of CN Name Value Range Interpretation Code Description Data Mary rce(s) Supporting Document(s) POC NOVA GLU 362 mg/dL (70-99) H [facility] [place] [facility] CLINICAL STAFF ID Date Data Source [id number] 02/10/2020 01:12:32 PM EDT [facility] [place] [facility] [place] Name Value Range Interpretation Code Description Data Mary rce(s) Supporting Document(s) POC NOVA GLU 440 mg/dL (70-99) HH [facility] [place] [facility] CLINICAL STAFF ID Date Data Source [id number] 02/10/2020 09:36:28 AM EDT [facility] [place] of Y Name Value Range Interpretation Code Description Data Mary rce(s) Supporting Document(s) POC NOVA GLU 269 mg/dL (70-99) H [facility] [place] PERFORMED BY [facility] CLINICAL STAFF ID Date Data Source [id number] 02/14/2020 12:34:03 AM EDT [facility] [place] [facility] [place] SPEC EXP DATE 02/13/2020PATI ENT ABO/Rh B NEGATIVEANTIBODY SCREEN NEGATIVETESTING SITE PERFORMED AT [address] [place] [address] [place] [address]NNEYQ BANK COMMENT BLOOD TYPE CONFIRMED.UNIT NUMBER [id number] COMPONENT TYPE LEUKOPOOR RED CELLS (PT B)UNIT DIVISION 00STATUS OF UNIT REL FROM ALLOCTRANSFUSION STATUS OK TO TRANSFUSECROSSMATCH RESULT COMPATIBLEUNIT NUMBER [id number] COMPONENT TYPE LEUKOPOOR RED CELLSUNIT DIVISION 00STATUS OF UNIT REL FROM ALLOCTRANSFUSION STATUS OK TO TRANSFUSECROSSMATCH RESULT COMPATIBLE Name Value Range Interpretation Code Description Data Mary rce(s) Supporting Document(s) TYPE AND SCREEN [facility] [place] [facility] [place] PATIENT ABO/Rh B NEGATIVE ID Date Data Source [id number] 02/10/2020 05:00:42 AM EDT [facility] [place] of [place] Name Value Range Interpretation Code Description Data Mary rce(s) Supporting Document(s) MAGNESIUM 2.1 mg/dL (1.7-2.4) [facility] [place] [facility] [place] ID Date Data Source [id number] 02/10/2020 05:00:42 AM EDT [facility] [place] [facility] [place] Name Value Range Interpretation Code Description Data Mary rce(s) Supporting Document(s) SODIUM 141 mmol/L (136-145) [facility] [place] [facility] [place] POTASSIUM 4.2 mmol/L (3.6-5.2) [facility] [place] [facility] [place] CHLORIDE 106 mmol/L (100-108) [facility] [place] [facility] [place] CO2 29 mmol/L (22-31) [facility] [place] [facility] [place] ANION GAP 6 mmol/L (7-16) L [facility] [place] [facility] [place] UREA NITROGEN 19 mg/dL (7-24) [facility] [place] [facility] [place] CREATININE 0.90 mg/dL (0.60-1.00) [facility] [place] [facility] [place] BUN/CREAT RATIO 21.1 RATIO (10.0-20.0) H [facility] [place] GLUCOSE 290 mg/dL (70-99) H [facility] [place] [facility] [place] CALCIUM 8.3 mg/dL (8.4-10.2) L [facility] [place] [facility] [place] GFR >60 ml/min/1.73m2 (>59) [facility] [place] [facility] [place] GFR ( AMER) >60 ml/min/1.73m2 (>59) [facility] [place] [facility] [place] GFR INTERPRETATION [facility] [place] --NORMAL KIDNEY FUNCTION OR MILD DISEASE - GFR >OR= 60CHRONIC KIDNEY DISEASE - GFR 15 - 59RENAL FAILURE - GFR <15 Est. GFR calculation based on the MDRDstudy equation, which assumes a steadystate for creatinine. Est. GFR should notbe used for medication dosing. ID Date Data Source [id number] 02/10/2020 04:32:47 AM EDT [facility] [place] [facility] [place] Name Value Range Interpretation Code Description Data Mary rce(s) Supporting Document(s) WBC 10.1 10*3/uL (4.1-11.0) [facility] [place] [facility] [place] RBC 3.84 10*6/uL (4.00-5.40) L [facility] [place] [facility] [place] HGB 10.5 g/dL (12.0-16.0) L [facility] [place] [facility] [place] HCT 31.9 % (36.0-47.0) L [facility] [place] [facility] [place] MCV 83.1 fL (80.0-95.0) [facility] [place] [facility] [place] MCH 27.4 pg (27.0-32.0) [facility] [place] [facility] [place] MCHC 33.0 g/dL (32.0-36.0) [facility] [place] [facility] [place] RDW 15.8 % (10.5-14.5) H [facility] [place] [facility] [place] PLT 216 10*3/uL (150-450) [facility] [place] [facility] [place] MPV 8.9 fL (7.1-10.7) [facility] [place] [facility] [place] ID Date Data Source [id number] 02/09/2020 06:26:35 PM EDT [facility] [place] [facility] [place] Name Value Range Interpretation Code Description Data Mary rce(s) Supporting Document(s) POC NOVA GLU 259 mg/dL (70-99) H [facility] [place] [facility] CLINICAL STAFF ID Date Data Source [id number] 02/09/2020 02:44:00 PM EDT [facility] ([facility]) Name Value Range Interpretation Code Description Data Mary rce(s) Supporting Document(s) Microscopic observation [Identifier] in Unspecified sp ecimen by Gram stain Laboratory test result [facility] ([facility]) Few (<10/LPF) White Blood Cellsmoderate (5 To 10/Oif) Gram Positive Cocci Specimen Description Laboratory test result [facility] ([facility]) Special Requests Laboratory test result [facility] ([facility]) Report Status Laboratory test result [facility] ([facility]) Laboratory test finding (navigational concept) Laboratory test result [facility] ([facility]) ID Date Data Source [id number] 02/09/2020 10:35:54 AM EDT [facility] NT INFORMATIONPatient MRN Name Date of Age Gend*PT [id number] Janelle Sotoinda 1965 54 years F IPPT Location Admission Date/Time Visit ID Attending [id number] 02/05/20 0417 --- Dain Sanford MD([id number]) EPI ID CSN Admitting Provider [id number] Dain Sanford MD([id number])NAME: Tatianna Soto Gerda#: [id number] #: [id number] DATE: 02/09/2020 PT TYPE: C SURACCT #: [id number] : 1965 SEX: femalePrimary Care Physician: TOM [...] she [facility]. She has multiple stents which have failedlikely [...] a micropuncture,followed by a J-wire and a 5-English Sheath. Next an Omni flush catheter wasplaced [...] spot for a bypass graft in the M1yjdjcdi of the popliteal just distal to the stent. The peroneal and AT are thetwo main tibial vessels to the leg and the dorsalis pedis is patent to theankle. The PT is completely occluded throughout. I then performed finalangioplasty of the left common iliac artery and left external iliac artery withthe [id number] hussein balloon and the [id number] hussein balloons. Completionangiogram now performed retrograde from the [...] bilateral legs. She ultimatelyone day might need baptist of flow surgically to the profunda on [...] Name Value Range Interpretation Code Description Data Mary dagmar(s) Supporting Document(s) ID Date Data Source [id number] 02/09/2020 10:49:28 AM EDT [facility] [place] [facility] Name Value Range Interpretation Code Description Data Mary dagmar(s) Supporting Document(s) POC NOVA GLU 155 mg/dL (70-99) H [facility] [place] [facility] [place] [facility] CLINICAL STAFF ID Date Data Source [id number] 02/09/2020 10:09:24 AM EDT [facility] Name Value Range Interpretation Code Description Data Mary rce(s) Supporting Document(s) IR IS ARTERIOGRAM ILIAC SELECTIVE [facility] ID Date Data Source [id number] 02/09/2020 01:19:48 PM EDT [facility] [place] [facility] [place] Name Value Range Interpretation Code Description Data Mary rce(s) Supporting Document(s) VANCOMYCIN TROUGH 9.9 ug/mL (10.0-20.0) L [facility] ID Date Data Source [id number] 02/09/2020 04:00:49 AM EDT [facility] [place] [facility] [place] Name Value Range Interpretation Code Description Data Mary rce(s) Supporting Document(s) SODIUM 143 mmol/L (136-145) [facility] [place] [facility] POTASSIUM 4.1 mmol/L (3.6-5.2) [facility] [place] [facility] CHLORIDE 109 mmol/L (100-108) H [facility] [place] [facility] [place] CO2 30 mmol/L (22-31) [facility] [place] [facility] [place] ANION GAP 4 mmol/L (7-16) L [facility] [place] [facility] [place] UREA NITROGEN 18 mg/dL (7-24) [facility] [place] [facility] [place] CREATININE 0.67 mg/dL (0.60-1.00) [facility] [place] [facility] [place] BUN/CREAT RATIO 26.9 RATIO (10.0-20.0) H [facility] GLUCOSE 153 mg/dL (70-99) H [facility] [place] [facility] [place] CALCIUM 8.4 mg/dL (8.4-10.2) [facility] [place] [facility] [place] GFR >60 ml/min/1.73m2 (>59) [facility] [place] [facility] [place] GFR ( AMER) >60 ml/min/1.73m2 (>59) [facility] [place] [facility] GFR INTERPRETATION [facility] --NORMAL KIDNEY FUNCTION OR MILD DISEASE - GFR >OR= 60CHRONIC KIDNEY DISEASE - GFR 15 - 59RENAL FAILURE - GFR <15 Est. GFR calculation based on the MDRDstudy equation, which assumes a steadystate for creatinine. Est. GFR should notbe used for medication dosing. ID Date Data Source [id number] 02/09/2020 04:00:49 AM EDT [facility] [place] [facility] [place] Name Value Range Interpretation Code Description Data Mary rce(s) Supporting Document(s) MAGNESIUM 2.2 mg/dL (1.7-2.4) [facility] [place] [facility] ID Date Data Source [id number] 02/09/2020 03:22:08 AM EDT [facility] [place] [facility] Name Value Range Interpretation Code Description Data Mary rce(s) Supporting Document(s) WBC 10.4 10*3/uL (4.1-11.0) [facility] [place] [facility] [place] RBC 4.14 10*6/uL (4.00-5.40) [facility] [place] [facility] [place] HGB 11.4 g/dL (12.0-16.0) L [facility] [place] [facility] [place] HCT 34.6 % (36.0-47.0) L [facility] [place] [facility] [place] MCV 83.8 fL (80.0-95.0) [facility] [place] [facility] [place] MCH 27.5 pg (27.0-32.0) [facility] [place] [facility] [place] MCHC 32.9 g/dL (32.0-36.0) [facility] [place] [facility] [place] RDW 15.6 % (10.5-14.5) H [facility] [place] [facility] [place] PLT 215 10*3/uL (150-450) [facility] [place] [facility] [place] MPV 8.7 fL (7.1-10.7) [facility] [place] [facility] ID Date Data Source [id number] 02/08/2020 05:52:10 PM EDT [facility] [place] [facility] Name Value Range Interpretation Code Description Data Mary rce(s) Supporting Document(s) POC NOVA GLU 212 mg/dL (70-99) H [facility] [place] [facility] [place] PERFORMED BY [facility] CLINICAL STAFF ID Date Data Source [id number] 02/08/2020 04:32:59 PM EDT [address] [place] [address] Name: Tatianna MccarthyB: 1965Sex: FOrdering Provider: HAYLEE FLANNERYuthorieldon Prov: HAYLEE Castro Provider: Procedure Performed: MRI LOW EXT NO JNT WO CONTRAST LEFTExam Date: 02/08/2020 15:20MRN: [id number] Number: [id number] Class: INFORMATION: Exam: MR Left Lower Extremity [...] Name Value Range Interpretation Code Description Data Mary rce(s) Supporting Document(s) ID Date Data Source [id number] 02/08/2020 02:51:29 PM EDT [facility] Name Value Range Interpretation Code Description Data Mary rce(s) Supporting Document(s) POC NOVA GLU 263 mg/dL (70-99) H [facility] [place] [facility] [place] [facility] CLINICAL STAFF ID Date Data Source [id number] 02/08/2020 01:08:00 PM EDT [facility] ([facility]) Name Value Range Interpretation Code Description Data Mary rce(s) Supporting Document(s) C reactive protein [Mass/volume] in Serum or Plasma 17.6 mg/dL 0.0-0. 5 [facility] ([facility]) ID Date Data Source [id number] 02/08/2020 02:17:03 PM EDT [facility] Name Value Range Interpretation Code Description Data Mary rce(s) Supporting Document(s) POC NOVA GLU 169 mg/dL (70-99) H [facility] [place] [facility] [place] [facility] CLINICAL STAFF ID Date Data Source [id number] 02/08/2020 12:41:45 PM EDT [facility] Name Value Range Interpretation Code Description Data Mary rce(s) Supporting Document(s) EKG [facility] [id number] [file] [id number] ID Date Data Source [id number] 02/08/2020 12:32:23 PM EDT [address] [address]Zhtjlfu Name: TATIANNA MCCARTHYB: 1965Sex: FOrdering Provider: DENISE MCCORDOCKAuthorizing Prov: DENISE CONTRERASSTOCKReferring Provider: Procedure Performed: XR CHEST PORTABLEExam Date: 02/08/2020 12:19MRN: [id number] Number: [id number] Class: InpatientAccount #: [id number] Exam: in PACU, s/p sternal wire removalTechnique: AP portable view obtained.Comparison: February 05, 2020Findings: PICC line tip is at the level superior vena cava. No pneumothorax is demonstrated. No pleural effusion demonstrated. No adenopathy is demonstrated. Lungs are clear. Heart size is normal.IMPRESSION: No acute abnormality.Report electronically signed by: MCKAY SENA On 02/08/2020 12:32 PMWorkstation ID: [id number] Name Value Range Interpretation Code Description Data Mary rce(s) Supporting Document(s) ID Date Data Source [id number] 02/08/2020 12:08:05 PM EDT [facility] [place] [facility] [place] Name Value Range Interpretation Code Description Data Mary rce(s) Supporting Document(s) POC NOVA GLU 182 mg/dL (70-99) H [facility] [place] [facility] [place] [facility]FOR[facility] BY [facility] CLINICAL STAFF ID Date Data Source [id number] 02/08/2020 11:24:00 AM EDT [facility] ([facility]) Name Value Range Interpretation Code Description Data Mary rce(s) Supporting Document(s) Erythrocyte sedimentation rate 96 mm/h 0-30 [facility] ([facility]) ID Date Data Source [id number] 02/08/2020 10:35:29 AM EDT [facility] NT INFORMATIONPatient MRN Name Date of Age Gend*PT [id number] Tatianna Soto 1965 54 years F IPPT Location Admission Date/Time [facility] --- Dain Sanford MD([id number]) EPI ID CSN Admitting Provider [id number] Dain Sanford MD([id number])H&P reviewed. The patient was examined and there are no changes to the H&P.Saba Smith MD10:34 AM Name Value Range Interpretation Code Description Data Mary rce(s) Supporting Document(s) ID Date Data Source [id number] 02/08/2020 08:29:24 AM EDT [facility] [place] [facility] Name Value Range Interpretation Code Description Data Mary rce(s) Supporting Document(s) POC NOVA GLU 178 mg/dL (70-99) H [facility] [place] [facility] [place] [facility] CLINICAL STAFF ID Date Data Source [id number] 02/08/2020 09:09:28 AM EDT [facility] [place] [facility] Name Value Range Interpretation Code Description Data Mary rce(s) Supporting Document(s) C REACTIVE PROTEIN @ 17.6 mg/dL (0.0-0.5) H Lab [facility] ID Date Data Source [id number] 02/08/2020 07:24:58 AM EDT [facility] [place] [facility] Name Value Range Interpretation Code Description Data Mary rce(s) Supporting Document(s) ESR 96 mm/h (0-30) H [facility] [place] [facility] ID Date Data Source [id number] 02/08/2020 06:50:28 AM EDT [facility] [place] [facility] Name Value Range Interpretation Code Description Data Mary rce(s) Supporting Document(s) VANCOMYCIN TROUGH 11.9 ug/mL (10.0-20.0) [facility] ID Date Data Source [id number] 02/08/2020 06:50:28 AM EDT [facility] [place] [facility] Name Value Range Interpretation Code Description Data Mary rce(s) Supporting Document(s) SODIUM 140 mmol/L (136-145) [facility] [place] [facility] POTASSIUM 3.9 mmol/L (3.6-5.2) [facility] [place] [facility] CHLORIDE 105 mmol/L (100-108) [facility] [place] [facility] CO2 30 mmol/L (22-31) [facility] [place] [facility] ANION GAP 5 mmol/L (7-16) L [facility] [place] [facility] UREA NITROGEN 18 mg/dL (7-24) [facility] [place] [facility] CREATININE 0.65 mg/dL (0.60-1.00) [facility] [place] [facility] BUN/CREAT RATIO 27.7 RATIO (10.0-20.0) H [facility] GLUCOSE 228 mg/dL (70-99) H [facility] [place] [facility] [place] CALCIUM 8.6 mg/dL (8.4-10.2) [facility] [place] [facility] GFR >60 ml/min/1.73m2 (>59) [facility] [place] [facility] GFR ( AMER) >60 ml/min/1.73m2 (>59) [facility] [place] [facility] GFR INTERPRETATION [facility] --NORMAL KIDNEY FUNCTION OR MILD DISEASE - GFR >OR= 60CHRONIC KIDNEY DISEASE - GFR 15 - 59RENAL FAILURE - GFR <15 Est. GFR calculation based on the MDRDstudy equation, which assumes a steadystate for creatinine. Est. GFR should notbe used for medication dosing. ID Date Data Source [id number] 02/07/2020 11:23:46 PM EDT [facility] [place] [facility] Name Value Range Interpretation Code Description Data Mary rce(s) Supporting Document(s) POC NOVA GLU 137 mg/dL (70-99) H [facility] [place] [facility] [place] [facility] CLINICAL STAFF ID Date Data Source [id number] 02/07/2020 04:40:16 PM EDT [facility] NT INFORMATIONPatient MRN Name Date of Age Gend*PT [id number] Tatianna Soto 1965 54 years F IPPT Location Admission Date/Time Visit ID Attending [id number] 02/05/20 0417 --- Dain Sanford MD([id number]) EPI ID CSN Admitting Provider [id number] Dain Sanford MD([id number])Inpatient Consult Megan SotoMRN: [id number] by Dain Sanford MD to evaluate Tatianna Soto for osteomyelitis of theright footRecords reviewed.HPI: The patient is a 54-year-old female with a history of chronic obstructivepulmonary disease, gastroesophageal reflux disease, coronary artery diseasestatus post bypass surgery 2015, hyperlipidemia, type 2 diabetes with peripheralNeuropathy, and peripheral vascular disease with claudication.Patient [facility] to [facility] with 2 hours of acute right foot andcalf pain. She was started on intravenous heparin and transferred to [facility] to Dr. 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 Ligation of the SFA.; Surgeon:Dain Sanford MD; Laterality: Right;Medications:Scheduled Meds: aspirin 325 mg Oral Daily atorvastatin 80 mg Oral Daily buPROPion 150 mg Oral Daily [START ON 02/08/2020] ceFAZolin (ANCEF) IV 2 g Intravenous Quality Review Trainer to OR clopidogrel 75 mg Oral Daily [...] tablet Oral Nightly vancomycin 1,000 mg Intravenous [id number] Infusions: electrolyte-R Stopped (02/06/20 0349)PRN Meds:.acetaminophen, albuterol, [...] on phone: None Gets together: None Attends sabianist service: None Active member of club or [...] children, all > 22 yo.had worked in [employer], last working 2008.Review of Systems:All review of [...] palpable sternal wires. Sternal woundwell- healedHeart exam S1-P0Cjbyjjc soft, obese. Nontender. Positive bowel sounds. WithouthepatosplenomegalyRight [...] Procedure Component Value Units Date/Time Anaerobic culture [[id number]] Collected: 02/07/201014 Order Status: Sent Specimen: Wound Updated: 02/07/20 1133 Narrative: RIGHT FIFTH TOE. SAMPLE SENT. Anaerobic culture [[id number]] Collected: 02/07/201014 Order Status: Sent Specimen: Wound Updated: 02/07/20 1132 Narrative: LEFT HEEL. CULTURE ALREADY SENT. Wound culture [[id number]] Collected: 02/07/201014 Order Status: Sent Specimen: Non-Surg Soft Tissue Swab Updated: Narrative: RIGHT TOE WOUND Wound culture [[id number]] Collected: 02/07/201014 Order Status: Sent Specimen: Non-Surg Soft Tissue Swab Updated: Narrative: LEFT HEEL WOUND Blood Culture Peripheral x 1 Set (2 bottles aerobic and anaerobic) [[id number]]Collected: 02/05/20608 Order Status: Completed Specimen: Periphe ral Updated: 02/07/20 1057 Specimen Description PERIPHERAL 2 Special Requests NONE Culture Result NO GROWTH 2 DAYS Report Status PENDING Blood Culture Peripheral x 1 Set (2 bottles aerobic and anaerobic) [[id number]]Collected: 02/05/2009 Order Status: Completed Specimen: Peripheral Updated: 02/07/20 1057 Specimen Description PERIPHERAL 1 Special Requests NONE Culture Result NO GROWTH 2 DAYS Report Status PENDING 2019 nCoV Amplified [[id number]] Collected: 02/05/20 1445 Order Status: Completed Specimen: [...] THE VIRUS THAT CAUSES COVID-19.RESULTS EMAILED TO [facility] AT 2107. [id number] [id number]. FIRST TEST YES EMPLOYED IN HLTHCARE NO SYMPTOMATIC NO DATE OF SYMPT ONSET NOT APPLICABLE HOSPITALIZED YES ICU NO CON[facility]REG[facility] CARE SET NO NO 2019 nCoV Amplified [[id number]] Order Status: Canceled Specimen: Swab from NasopharyngealImpression and Recommendations:Principal Problem: Ischemia of right lower extremityActive Problems: Type 2 diabetes mellitus with circulatory disorder, with long-term current useof insulin Heavy cigarette smoker (20-39 per day) HLD (hyperlipidemia) Coronary artery disease involving winnebago coronary artery of winnebago heartwithout angina pectoris Peripheral vascular disease COPD (chronic obstructive pulmonary disease) Osteomyelitis of huct49-oopo-[id number] female with type 2 diabetes with diabetic [...] Name Value Range Interpretation Code Description Data Mary rce(s) Supporting Document(s) ID Date Data Source [id number] 02/07/2020 04:22:00 PM EDT [facility] ([facility]) Name Value Range Interpretation Code Description Data Mary rce(s) Supporting Document(s) Est. Average Glucose 186 mg/dL [facility] ([facility]) Hemoglobin A1c/Hemoglobin.total in Blood 8.1 % 4.0-6.0 [facility] ([facility]) Performed using Siemens Widener immunoassa y. Care must be taken when interpreting HbA1c results in patients with a hemoglobin variant or decreased erythrocyte lifespan. Values 5.7 - 6.4% suggest prediabetes. Values >=6.5% are diagnostic for diabetes. REFERENCE: DIABETES CARE 2018: 41(S13-S27). PERFORMED AT [address] [place] [address] ID Date Data Source [id number] 02/07/2020 04:17:00 PM EDT [facility] ([facility]) Name Value Range Interpretation Code Description Data Mary rce(s) Supporting Document(s) Prothrombin time (PT) in control Platelet poor plasma by Coagulation assay 10.3 s 9.2-11.9 [facility] ([facility]) INR in Platelet poor plasma by Coagulation assay 0.98 [facility] ([facility]) SUGGESTED THERAPEUTIC RANGES USING INR F OR STABILIZED ANTICOAGULATED PATIENTS: STANDARD DOSE THERAPY INR 2.0-3.0 DVT, PE, PREVENT DVT OR EMBOLISM HIGH DOSE THERAPY INR 2.5-3.5 PREVENT EMBOLISM FROM MECHANICAL HEART VALVE ID Date Data Source [id number] 02/07/2020 04:17:00 PM EDT [facility] ([facility]) Name Value Range Interpretation Code Description Data Mary rce(s) Supporting Document(s) aPTT in Platelet poor plasma by Coagulation assay 25.1 s 22.0-34. 3 [facility] ([facility]) ID Date Data Source [id number] 02/07/2020 02:05:34 PM EDT [facility] Name Value Range Interpretation Code Description Data Mary rce(s) Supporting Document(s) POC NOVA GLU 244 mg/dL (70-99) H [facility] [place] [facility] [place] PERFORMED BY [facility] CLINICAL STAFF ID Date Data Source [id number] 02/07/2020 12:18:33 PM EDT [facility] Name Value Range Interpretation Code Description Data Mary rce(s) Supporting Document(s) APTT 25.1 s (22.0-34.3) [facility] ID Date Data Source [id number] 02/07/2020 12:18:33 PM EDT [facility] Name Value Range Interpretation Code Description Data Mary rce(s) Supporting Document(s) PT 10.3 s (9.2-11.9) [facility] [place] INR 0.98 [facility] [place] SUGGESTED THERAPEUTIC RANGES USING INR F ORSTABILIZED ANTICOAGULATED PATIENTS:STANDARD DOSE THERAPY INR 2.0-3.0 DVT, PE, PREVENT DVT OR EMBOLISMHIGH DOSE THERAPY INR 2.5-3.5 PREVENT EMBOLISM FROM MECHANICAL HEART VALVE ID Date Data Source [id number] 02/07/2020 12:23:15 PM EDT [facility] [place] Name Value Range Interpretation Code Description Data Mayr rce(s) Supporting Document(s) HEMOGLOBIN A1C @ 8.1 % (4.0-6.0) H [facility] [place] Performed using Siemens Widener immunoassa y.Care must be taken when interpreting IgO9ylbarqfp in patients with a hemoglobin variantor decreased erythrocyte lifespan. Values 5.7 - 6.4% suggest prediabetes.Values >=6.5% are diagnostic for diabetes.REFERENCE: DIABETES CARE 2018: 41(S13-S27).PERFORMED AT [address] [place] [address] EST AVERAGE GLUCOSE 186 mg/dL [facility] ID Date Data Source [id number] 02/11/2020 05:12:29 PM EDT [facility] [place] SPECIMEN DESCRIPTION NON-SURG SOF T TISSUE SWAB LEFT HEEL WOUNDSPECIAL REQUESTS NONECULTURE RESULTS MODERATE FINEGOLDIA MAGNAREPORT STATUS FINAL 02/11/2020 Name Value Range Interpretation Code Description Data Mary rce(s) Supporting Document(s) ID Date Data Source [id number] 02/10/2020 03:54:39 PM EDT [facility] SPECIMEN DESCRIPTION NON-SURG SOF T TISSUE SWAB RIGHT TOE WOUNDSPECIAL REQUESTS NONECULTURE RESULTS FEW PEPTOSTREPTOCOCCUS SPECIESREPORT STATUS FINAL 02/10/2020 Name Value Range Interpretation Code Description Data Mary rce(s) Supporting Document(s) ID Date Data Source [id number] 02/09/2020 10:45:06 AM EDT [facility] [place] SPECIMEN DESCRIPTION NON-SURG SOF T TISSUE SWAB RIGHT TOE WOUNDSPECIAL REQUESTS NONEGRAM STAIN FEW (<10/LPF) WHITE BLOOD CELLS MODERATE (5 TO 10/OIF) GRAM POSITIVE COCCICULTURE RESULTS NO GROWTHREPORT STATUS FINAL 02/09/2020 Name Value Range Interpretation Code Description Data Mary rce(s) Supporting Document(s) ID Date Data Source [id number] 02/09/2020 10:22:00 AM EDT [facility] [place] [facility] [place] SPECIMEN DESCRIPTION NON-SURG SOF T [...] Name Value Range Interpretation Code Description Data Mary rce(s) Supporting Document(s) ID Date Data Source [id number] 02/07/2020 08:42:59 AM EDT [facility] [place] Name Value Range Interpretation Code Description Data Mary rce(s) Supporting Document(s) POC NOVA GLU 238 mg/dL (70-99) H [facility] [place] [facility] [place] [facility] CLINICAL STAFF ID Date Data Source [id number] 02/07/2020 07:56:24 AM EDT [facility] [place] Name Value Range Interpretation Code Description Data Mary rce(s) Supporting Document(s) SODIUM 139 mmol/L (136-145) [facility] POTASSIUM 4.7 mmol/L (3.6-5.2) [facility] CHLORIDE 103 mmol/L (100-108) [facility] CO2 26 mmol/L (22-31) [facility] ANION GAP 10 mmol/L (7-16) [facility] UREA NITROGEN 16 mg/dL (7-24) [facility] CREATININE 0.81 mg/dL (0.60-1.00) [facility] BUN/CREAT RATIO 19.8 RATIO (10.0-20.0) [facility] GLUCOSE 268 mg/dL (70-99) H [facility] [facility] CALCIUM 8.8 mg/dL (8.4-10.2) [facility] GFR >60 ml/min/1.73m2 (>59) [facility] GFR ( AMER) >60 ml/min/1.73m2 (>59) [facility] GFR INTERPRETATION [facility] --NORMAL KIDNEY FUNCTION OR MILD DISEASE - GFR >OR= 60CHRONIC KIDNEY DISEASE - GFR 15 - 59RENAL FAILURE - GFR <15 Est. GFR calculation based on the MDRDstudy equation, which assumes a steadystate for creatinine. Est. GFR should notbe used for medication dosing. ID Date Data Source [id number] 02/07/2020 07:32:09 AM EDT [facility] Name Value Range Interpretation Code Description Data Mary rce(s) Supporting Document(s) WBC 9.1 10*3/uL (4.1-11.0) [facility] [place] [facility] [place] RBC 4.29 10*6/uL (4.00-5.40) [facility] [facility] HGB 11.8 g/dL (12.0-16.0) L [facility] [facility] HCT 36.0 % (36.0-47.0) [facility] MCV 84.0 fL (80.0-95.0) [facility] MCH 27.4 pg (27.0-32.0) [facility] MCHC 32.6 g/dL (32.0-36.0) [facility] RDW 15.7 % (10.5-14.5) H [facility] PLT 202 10*3/uL (150-450) [facility] MPV 8.7 fL (7.1-10.7) [facility] kylie CEDILLO ID Date Data Source [id number] 02/06/2020 10:59:00 PM EDT [facility] ([facility]) Name Value Range Interpretation Code Description Data Mary rce(s) Supporting Document(s) Laboratory test finding (navigational concept) Laboratory test result [facility] ([facility]) [address] [address]Qlu# Surgical Pathology ReportAccession #:[id number](s) ReceivedA: Contents of femoral artery rightClinical Diagnosis and HistoryClaudication Diagnosiscontents Of Femoral Artery, Right: Atherosclerotic Plaque (Gross Diagnosis). Gross DescriptionReceived in formalin, the specimen is labeled "contents of femoral arteryright" consists of fragmented white-johnson calcified atherosclerotic plaquemeasuring approximately 3-4 cm in aggregate. No sections submitted. Agustin asencio. jglgmm/gmm Reported: 02/06/2020Electronically Signed Out By Serjio Sandhu M.D. [facility] [place] [address]ufrTemahlbix component performed at [facility] [employer] [facility], [facility], [address] [place] [address], [phone].Reported at [facility], [address] [place] [address], [phone]. This report may includeimmunohistochemical or in-situ hybridization results. Testing wasdeveloped and the performance characteristics determined by damntheradio as required by Clia '88. The Fda hasdetermined that approval for specific use is not necessary for clinicaluse. The quality of Hematoxylin and Eosin stains and as applicable, forall im munohistochemical and/or special stains, including positive andnegative controls, were reviewed and considered appropriate.Icd codes I70.90CPT codesA: 18116D ID Date Data Source [id number] 02/06/2020 10:43:12 PM EDT [address] [id number] Name: Tatianna MccarthyB: 1965Sex: FOrdering Provider: HAYLEE FLANNERYuthtracie Prov: HAYELE Lozadaferjudy Provider: Procedure Performed: MRI LOW EXT NO JNT WO CONTRAST RIGHTExam Date: 02/06/2020 20:23MRN: [id number] Number: [id number] Class: INFORMATION: Exam: MR Right Lower Extremity [...] Name Value Range Interpretation Code Description Data Mary rce(s) Supporting Document(s) ID Date Data Source [id number] 02/06/2020 06:47:40 PM EDT [facility] Name Value Range Interpretation Code Description Data Mary rce(s) Supporting Document(s) POC NOVA GLU 294 mg/dL (70-99) H [facility] Duarte [facility] PERFORMED BY [facility] CLINICAL STAFF ID Date Data Source [id number] 02/06/2020 02:32:52 PM EDT [facility] NT INFORMATIONPatient MRN Name Date of Age Gend*PT [id number] Cj Sotoa 1965 54 years F SDCPT Location Admission Date/Time Visit ID Attending Provider --- --- --- Saba Smith MD([id number]) EPI ID CSN Admitting Provider [id number] Saba Smith MD([id number]) [place] [address] OPERATIVE REPORT OPNAME: CJ SOTOHarris Lorenz#: [id number] #: ADMISSION DATE:: 1965 SEX: F PT TYPE: H SURACCT #: [id number] CARE PHYSICIAN: TOM CORONADO-SURBEDATE OF OPERATION: 02/05/2020DATE AND TIME OF PROCEDURE:02/05/2020 at approximately 7:00 p.m.PREOPERATIVE DIAGNOSIS:Right lower extremity critical limb ischemia with rest pain.POSTPROCEDURAL DIAGNOSIS:Right lower extremity critical limb ischemia with rest pain in the settingof an acutely occluded right superficial femoral artery stent.ESTIMATED BLOOD LOSS:250 mL.SPECIMEN:Right common femoral artery contents for permanent pathology.COMPUTER TESTER:Cliff Alex PA-C.ANESTHESIA:General endotracheal.PROCEDURE IN DETAIL:The patient is [...] bypass graft, thuscreating a PTFE to PTFE yksoj-la-aalcj anastomosis and this jump graft wasthen anastomosed [...] the dorsalis pedis artery.BETZY Borrego/CARMINE Job #: [id number] DOC #: [id number] Name Value Range Interpretation Code Description Data Mary rce(s) Supporting Document(s) ID Date Data Source [id number] 02/06/2020 12:23:05 PM EDT [facility] Name Value Range Interpretation Code Description Data Mary rce(s) Supporting Document(s) POC NOVA GLU 355 mg/dL (70-99) H [facility] [place] [facility] [place] [facility] CLINICAL STAFF ID Date Data Source [id number] 02/06/2020 09:01:24 AM EDT [facility] Name Value Range Interpretation Code Description Data Mary rce(s) Supporting Document(s) POC NOVA GLU 207 mg/dL (70-99) H [facility] [place] [facility] [place] [facility] CLINICAL STAFF ID Date Data Source [id number] 02/06/2020 08:37:40 AM EDT [facility] Name Value Range Interpretation Code Description Data Mary rce(s) Supporting Document(s) SODIUM 138 mmol/L (136-145) [facility] POTASSIUM 4.3 mmol/L (3.6-5.2) [facility] CHLORIDE 103 mmol/L (100-108) [facility] CO2 25 mmol/L (22-31) [facility] ANION GAP 10 mmol/L (7-16) [facility] UREA NITROGEN 17 mg/dL (7-24) [facility] CREATININE 0.81 mg/dL (0.60-1.00) [facility] BUN/CREAT RATIO 21.0 RATIO (10.0-20.0) H [facility] GLUCOSE 236 mg/dL (70-99) H [facility] CALCIUM 8.2 mg/dL (8.4-10.2) L [facility] GFR >60 ml/min/1.73m2 (>59) [facility] GFR ( AMER) >60 ml/min/1.73m2 (>59) [facility] GFR INTERPRETATION [facility] --NORMAL KIDNEY FUNCTION OR MILD DISEASE - GFR >OR= 60CHRONIC KIDNEY DISEASE - GFR 15 - 59RENAL FAILURE - GFR <15 Est. GFR calculation based on the MDRDstudy equation, which assumes a steadystate for creatinine. Est. GFR should notbe used for medication dosing. ID Date Data Source [id number] 02/06/2020 07:57:45 AM EDT [facility] Name Value Range Interpretation Code Description Data Mary rce(s) Supporting Document(s) WBC 16.1 10*3/uL (4.1-11.0) H [facility] RBC 4.46 10*6/uL (4.00-5.40) [facility] HGB 12.2 g/dL (12.0-16.0) [facility] HCT 36.7 % (36.0-47.0) [facility] MCV 82.4 fL (80.0-95.0) [facility] MCH 27.3 pg (27.0-32.0) [facility] MCHC 33.2 g/dL (32.0-36.0) [facility] RDW 15.9 % (10.5-14.5) H [facility] [place] [facility] PLT 241 10*3/uL (150-450) [facility] [place] [facility] MPV 8.6 fL (7.1-10.7) Lab [facility] ID Date Data Source [id number] 02/06/2020 01:31:00 AM EDT [facility] ([facility]) Name Value Range Interpretation Code Description Data Mary rce(s) Supporting Document(s) Poc Source Laboratory test result [facility] ([facility]) Poc Temp Laboratory test result [facility] ([facility]) CP Bypass Laboratory test result [facility] ([facility]) Laboratory test finding (navigational concept) 50 [facility] ([facility]) Poc pH 7.50 [pH] 7.35-7.45 [facility] ([facility]) TEMPERATURE CORRECTED VALUE Poc Art O2 Sat 99 % 95-99 [facility] ([facility]) Poc pO2 122 83-108 [facility] ([facility]) TEMPERATURE CORRECTED VALUE Poc pCO2 29.4 32.0-48.0 [facility] ([facility]) TEMPERATURE CORRECTED VALUE Poc Base Excess 0 0-3 [facility] ([facility]) Poc Total Co2 24 23.0-32.0 [facility] ([facility]) PERFORMED BY [facility] CLINICAL STAFF Poc Hco3 22.9 21.0-29.0 [facility] ([facility]) Potassium [Moles/volume] in Serum or Plasma 3.6 3.6-5.2 [facility] ([facility]) Poc Hematocrit 37 % 36.0-47.0 [facility] ([facility]) Sodium [Moles/volume] in Serum or Plasma 136 136-145 [facility] ([facility]) Poc Glucose (iStat) 181 70-99 [facility] ([facility]) Milking Machine Mechanic who read Cyto stain of Cervical or vaginal smear or scraping Laboratory test result [facility] ([facility]) Poc Ionized Calcium 4.3 4.6-5.3 [facility] ([facility]) ID Date Data Source [id number] 02/06/2020 12:12:04 AM EDT Lab [facility] Name Value Range Interpretation Code Description Data Mary rce(s) Supporting Document(s) POC NOVA GLU 202 mg/dL (70-99) H [facility] [place] PERFOR[facility] BY [facility] CLINICAL STAFF ID Date Data Source [id number] 02/05/2020 09:31:35 PM EDT [facility] Name Value Range Interpretation Code Description Data Mary rce(s) Supporting Document(s) POC TEMPERATURE [facility] [place] [facility] 36.0C POC SOURCE [facility] POC FIO2 50 [facility] CP BYPASS [facility] POC PH 7.50 pH (7.35-7.45) H [facility] [place] [facility] TEMPERATURE CORRECTED VALUE POC PCO2 29.4 MMHG (32.0-48.0) L [facility] [place] [facility] TEMPERATURE CORRECTED VALUE POC PO2 122 MMHG (83-108) H [facility] [place] [facility] TEMPERATURE CORRECTED VALUE POC SAT O2 99 % (95-99) [facility] POC BASE EXCESS 0 MMOL/L (0-3) [facility] [place] [facility] POC HCO3 22.9 MMOL/L (21.0-29.0) [facility] POC TOTAL CO2 24 MMOL/L (23.0-32.0) [facility] [place] [facility] PERFOR[facility] BY [facility] CLINICAL STAFF POC HCT 37 % (36.0-47.0) [facility] [place] [facility] POC SODIUM 136 MMOL/L (136-145) [facility] [place] [facility] POC POTASSIUM 3.6 MMOL/L (3.6-5.2) [facility] POC IONIZED CALCIUM 4.3 MG/DL (4.6-5.3) L [facility] POC GLU 181 MG/DL (70-99) H [facility] [place] [facility] PERFORM LAB [facility] [place] [facility] ID Date Data Source [id number] 02/05/2020 08:22:50 PM EDT [facility] NT INFORMATIONPatient MRN Name Date of Age Gend*PT [id number] Tatianna Soto 1965 54 years F IPPT Location Admission Date/Time Visit ID Attending Provider --- --- --- --- EPI ID CSN Admitting Provider [id number] ---AirwayPatient location during procedure: ORUrgency: electiveDifficult airway: noAdvanced airway equipment used: noStaffingPerformed by: Shruthi Linares CRNAAnesthesiologist: Anatoliy Levine, DOIndications and Patient ConditionIndications for airway [...] to lips: 21 cmPlacement verified by: + [id number] view: grade I - full view of glottis Name Value Range Interpretation Code Description Data Mary rce(s) Supporting Document(s) ID Date Data Source [id number] 02/05/2020 08:01:43 PM EDT [facility] NT INFORMATIONPatient MRN Name Date of Age Gend*PT [id number] Tatianna Soto 1965 54 years F IPPT Location Admission Date/Time Visit ID Attending Provider --- --- --- --- EPI ID CSN Admitting Provider [id number] ---Arterial Line PlacementPatient location during procedure: ORIndications for arterial line: multiple ABGs and hemodynamic monitoringStaffingPerformed by: Anatoliy Levine, DOApproved by: Anatoliy Levine, DOCompleted: patient identified, risks and benefits discussed, surgical consentobtained, anesthesia consent obtained, monitors and equipment checked, pre-opevaluation completed, timeout performed, patient was prepped and draped in usualsterile fashion,Arterial Line InsertionSite prep: chlorhexidineAnesthesia: noneLaterality: leftLocation: radia l arteryNeedle gauge: 20 GTechnique: ultrasound guidedNumber of attempts: 1AssessmentSutured: noDressing: Bio patch appliedPatient tolerance: tolerated well Name Value Range Interpretation Code Description Data Mary rce(s) Supporting Document(s) ID Date Data Source [id number] 02/05/2020 07:31:58 PM EDT [facility]ylie [facility] Name Value Range Interpretation Code Description Data Mary rce(s) Supporting Document(s) POC NOVA GLU 182 mg/dL (70-99) H [facility] [place] [facility] [place] [facility] PERFORMED BY [facility] CLINICAL STAFF ID Date Data Source [id number] 02/05/2020 08:08:00 PM EDT [facility]ie [facility] Name Value Range Interpretation Code Description Data Mary rce(s) Supporting Document(s) POC NOVA GLU 188 mg/dL (70-99) H [facility] [place] [facility] [place] [facility] PERFORMED BY [facility] CLINICAL STAFF ID Date Data Source [id number] 02/05/2020 05:57:58 PM EDT [facility]ie [facility] Name Value Range Interpretation Code Description Data Mary rce(s) Supporting Document(s) APTT 97.7 s (22.0-34.3) HH [facility] ALERTED CRITICAL RESULT TONICHOLAS (4300 220)/D4 EXT 70373 AT 1756 ON 02/05/20 [place] [id number] ID Date Data Source [id number] 02/05/2020 02:45:00 PM EDT [facility]ie [facility] Name Value Range Interpretation Code Description Data Mary rce(s) Supporting Document(s) SARS coronavirus 2 RNA [Presence] in Res piratory specimen by CHLOE with probe detection Lab [facility] This lab was reported by [facility]. ID Date Data Source [id number] 02/05/2020 11:35:50 PM EDT Lab [facility] Name Value Range Interpretation Code Description Data Mary rce(s) Supporting Document(s) SPECIMEN DESCRIPTION [facility] [place] COVID19 RESULT (NDET) Lab [facility] THIS ASSAY AMPLIFIES AND DETECTSTHE TARG ET RNA USING REAL-TIME PCR.NEGATIVE 2019_NCOV RT-PCR RESULTS DONOT PRECLUDE 2019_NCOV INFECTION ANDSHOULD NOT BE USED THE SOLE BASISFOR PATIENT MANAGEMENT DECISIONS. COMMENT [facility] [place] UNDER AN EMERGENCY USE AUTHORIZATION(EUA ) FOR THE DETECTION AND/OR DIAGNOSISOF THE VIRUS THAT CAUSES COVID-19.RESULTS EMAILED TO [facility] IC AT [phone]. [phone]. FIRST TEST [facility] [place] EMPLOYED IN HLTHCARE [facility] SYMPTOMATIC [facility] Smith DATE OF SYMPT ONSET [facility] HOSPITALIZED [facility] [place] [facility] [place] ICU [facility] [place] CONGREGATE CARE SET [facility] [place] ID Date Data Source [id number] 02/05/2020 01:49:52 PM EDT [facility] [place] kylie [facility] Name Value Range Interpretation Code Description Data Mary rce(s) Supporting Document(s) POC NOVA GLU 234 mg/dL (70-99) H [facility] [place] [facility] [place] [facility] PERFORMED BY [facility] CLINICAL STAFF ID Date Data Source [id number] 02/05/2020 12:56:40 PM EDT [facility] NT INFORMATIONPatient MRN Name Date of Age Gend*PT [id number] Tatianna Soto 1965 54 years F IPPT Location Admission Date/Time Visit ID Attending [id number] 02/05/20 0417 --- Dain Sanford MD([id number]) EPI ID CSN Admitting Provider [id number] Dain Sanford MD([id number]) Attestation signed by Dain Sanford MD at [...] H&P Note Tatianna Soto Admission Date: 02/05/2020MRN: [id number]: 1965 54 yearsPrimary Care Provider: Sharona COE Physician: Dain Sanford MD Informant:Pt and chart. Both reliableCC:Right foot pain HPI:54 yr old female with medical hx significant for obesity, CAD (quintaplebypass), DM2, COPD (heavy smoker), PVD with claudication. Presented to [facility] 2 hours of acute right foot and [...] VEIN HARVEST; Surgeon: Saba Smith MD; [facility]; Service: Cardiac/Open Heart; Laterality: N/A; FOOT SURGERY GASTROSTOMY W/ FEEDING TUBE 2015 LEG SURGERY PEG W/TRACHEOSTOMY PLACEMENT 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 > 1000 in early 2015 TRACHEOSTOMY 2015 TUBAL LIGATIONMedication List:Medications Prior to AdmissionMedication Sig Dispense Refill Last Dose albuterol (PROVENTIL HFA;VENTOLIN HFA) 108 (90 Base) MCG/ACT inhaler INHALETWO PUFFS BY MOUTH EVERY 4 HOURS NEEDED FOR WHEEZING 0 Past Month at Unknowntime atorvastatin (LIPITOR) 80 MG tablet Take 80 mg by mouth daily 02/04/2020 [id number] ASPIRIN ADULT 325 MG tablet Take 325 [...] admittedto Dain Sanford MD1. Chart reviewed from [facility]2. Pain control: PO and IV offered3. PVD ischemic right RLE: heparin gtt initiated in tererro. Will resumeheparin gtt as well as aspirin/plavix. CTA with run off pending.4. DM2: ADA diet, insulin scale. Glucose monitor protocol5. CAD: will make CT surgery aware that she is here. Will get cardiologyconsult. Sees Dr Millan in [place]. Has been consulted by Dr Gagnon group inthe past. Most recent echo from June with EF 45-50%.6. Tobacco abuse: 20-40 per day. Smoking cessation encouraged. On wellbutrin7. Antiemetics prn8. DVT prophylaxis: US in [facility] neg for DVT: continue heparin gtt9. Disposition: Will await results from CTA to determine her inpatient plan.Discussed with Dain Sanford MD. Signature: JALIL Astudilloate: February 05, 2020Time: 5:50 AM Name Value Range Interpretation Code Description Data Mary rce(s) Supporting Document(s) ID Date Data Source [id number] 02/05/2020 12:16:46 PM EDT [address] [id number] Name: TATIANNA MCCARTHYB: 1965Sex: FOrdering Provider: EMIL MASCORROuthtracie Prov: EMIL SINHAeferrnorma Provider: Procedure Performed: CT ANGIOGRAM ABDOMINAL AORTA AND BILATERAL RUNOFFExam Date: 02/05/2020 09:25MRN: [id number] Number: [id number] Class: InpatientAccount #: [id number] [id number] Exam: Arterial embolism, lower extremityTechnique: Helical [...] MOSHE WREN On 02/05/2020 12:16 PMWorkstation ID: [id number] Name Value Range Interpretation Code Description Data Mary rce(s) Supporting Document(s) ID Date Data Source [id number] 02/05/2020 12:03:00 PM EDT [facility] Name Value Range Interpretation Code Description Data Mary rce(s) Supporting Document(s) Potassium [Moles/volume] in Serum or Plasma 4.0 mmol/L 3.6-5.2 [facility] ([facility]) Sodium [Moles/volume] in Serum or Plasma 137 mmol/L 136-145 [facility]) Chloride [Moles/volume] in Serum or Plasma 103 mmol/L 100-108 [facility] ([facility]) Anion gap [...] ratio 0.8 [facility]) Bilirubin direct and total panel [Mass/volume] - Serum or Pl asma 0.3 mg/dL 0.0-1.0 [facility] ([facility] ) PLEASE NOTE: Total bilirubin results may be falsely elevated in patients taking Eltrombopag. Alkaline phosphatase [Enzymatic activity/volume] in Serum or Plasma 162 U/L 45-117 [facility] ([facility] ) Glomerular filtration rate/1.73 sq M pre dicted among non-blacks [Volume Rate/Area] in Serum or Plasma by Creatinine-based formula (MDRD) 44 [facility] ([facility]) Alanine aminotransferase [Enzymatic activity/volume] in Seru m or Plasma 15 U/L 12-78 [facility] ([facility] ) Aspartate aminotransferase [Enzymatic activity/volume] in Serum or Plasma 13 U/L 11-39 [facility] ([facility]) Glomerular filtration rate/1.73 sq M pre dicted among blacks [Volume Rate/Area] in Serum or Plasma by Creatinine-based formula (MDRD) 53 [facility] ([facility]) Glomerular filtration rate/1.73 sq M pre dicted among non-blacks [Volume Rate/Area] in Serum or Plasma by Creatinine-based formula (MDRD) Laboratory test result [facility] ([facility]) -- NORMAL KIDNEY FUNCTION OR MILD DISEASE - GFR >OR= 60 CHRONIC KIDNEY DISEASE - GFR 15 - 59 RENAL FAILURE - GFR <15 Est. GFR calculation based on the MDRD study equation, which assumes a steady state for creatinine. Est. GFR should not be used for medication dosing. ID Date Data Source [id number] 02/05/2020 10:50:35 AM EDT [address] [id number] Name: TATIANNA SOTODONALD: 1965Sex: FOrdering Provider: LIBORIO Brower Prov: LIBORIO SONORALIARogererrnorma Provider: Procedure Performed: XR CHEST PORTABLEExam Date: 02/05/2020 10:47MRN: [id number] Number: [id number] Class: InpatientAccount #: [id number] Exam: heart failureTechnique: AP portable view obtained.Comparison: 01/05/2016Findings: Mediastinal structures are unremarkable. There is no pleural disease. The lungs are clear.IMPRESSION: No active disease.Report electronically signed by: ASHWIN BEACH On 02/05/2020 10:50 AMWorkstation ID: [id number] Name Value Range Interpretation Code Description Data Mary rce(s) Supporting Document(s) ID Date Data Source [id number] 02/05/2020 10:13:22 AM EDT [facility] NT INFORMATIONPatient MRN Name Date of Age Gend*PT [id number] Tatianna Soto 1965 54 years F IPPT Location Admission Date/Time Visit ID Attending [id number] 02/05/20 0417 --- Dain Sanford MD([id number]) EPI ID CSN Admitting Provider [id number] Dain Sanford MD([id number])CARDIOLOGY CONSULTATIONName: Tatianna Soto Gender: femaleDate of : 1965 Age: 54 yearsDate/Time of Admit: 02/05/2020 4:17 AM Code Status: Full CodePrimary Care Provider / Referring Physician: LEIGH COEnformant:HISTORYCHIEF COMPLAINT: No chief complaint on file.HPI:This patient is a 54 years female who was transferred here from [facility] earlier today. She was experiencing acute right foot and calf pain.The patient has a history of diabetes and peripheral neuropathy.She has a history of coronary artery disease with CABG x5 performed here [id number].Her prehospital medications include Lipitor, aspirin, Plavix, Prinivil, [...] VEIN HARVEST; Surgeon: Saba Smith MD; [facility]; Service: Cardiac/Open Heart; Laterality: N/A; FOOT SURGERY GASTROSTOMY W/ FEEDING TUBE 2014 LEG SURGERY PEG W/TRACHEOSTOMY PLACEMENT 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 > 1000 in early 2016 TRACHEOSTOMY 2015 TUBAL LIGATIONFH:Family HistoryProblem Relation Age [...] file Gets together: Not on file Attends sabianist service: Not on file Active member of [...] Take 80 mg by mouth daily 02/04/2020 [id number] ASPIRIN ADULT 325 MG tablet Take 325 [...] Name Value Range Interpretation Code Description Data Mary rce(s) Supporting Document(s) ID Date Data Source [id number] 02/05/2020 10:10:48 AM EDT [facility] Name Value Range Interpretation Code Description Data Mary rce(s) Supporting Document(s) EKG [facility] IHOGAb6uLvWAZxRlm8TvGfRkVYDnNA2mexk5V5X5xEKqG9BtbRApa0udQ8VeB8EtFLOjNIQCXG7JzYAa jb2 [file] TEACHER EDUCATION DIRECTOR+qKQxA0risVmNDdBMXnY+Px09HpVe2IQakEHIUrcwQ9UqWTii7TmYM+M3/ThiWeIBU/MQW6C+RM8 qC6m5FSi1oJC2mGPatdMgyWidCEGUwAqHUbAM71SCW YTwGY7fn5gyYmU9gBDmenYQ/Aq2MozhQc9nrjhycRsqWHwk7786qwUMM1HlUf3+KB86sfAdLVi22WKT6 poXcbZPHp60MeIQcaKPa1mWtpJ4vqJXEXdWPuo3utkIKDbyyy77DUDhNQOyxzwdTSRnoF4TamkC2H3ye 63ueGYC8Mt1Tbj1uSIASZgvYFSgE/5jnmeH23FLzos FjP454969IYHDGewhjhm9AY7WjmWmek0EOXnsBHdKwkCpO2vX2rK2PdsQ9oucfG8bTaUCX8ovbgQ32Al bIc+PUGweuiB35Sffwb0COT+QykEy3N0NOU77LdNP+8X+kYMpW/EUPpWIkoEcaS+HZ6DD5QvCxe161LN Q8u1KCRasYPN++Y20QcLpv9IFMmepbXGKC7Jq3KpJK Bd5BCMEhBzfLc2QZbusqp0LiEwdIhWXCnq0qAI9uRRMEn57yu0FAKWheBAFXbT67sY8tZnpRJBCFnmAJ BDAlMFPaOAB5YKglvbX9lwVghHpZS3KX3P4LbVnFRA3CZV8skOGWBRbSIAjNzBkMZDS3ZC8GiZBOEyva TdUfpAEVceirkwkicmMhoF/BEHqPK23UlfF/SIENA/kZ hTEtWVPxlzCEBt7lDHnNsUrpDTjAOtZSYBZgxmmk5KziqF0314y9zzq3vZ6vHEM71xYIL1HbmTtP9eX+ mUAszT0XyyRsOYq9iOauG26yC7ZqGX79JbqBE8XHei8HpweGwRjOR3rHbXzgNGZx0MB5JCvBXBfoT9Jy Jp6fi1zHMjOge6UmPOaSmSAjQaEPRAiUV6WOleKDUQ iDjCcmMqhDHxjHgeXeOdqJcfAIrI0+US2KQ95UIZCy6NT2F1EBN5ehcKW5ReflPezDIki10FwWxwkD0Q HctXiTCh8OkAaHlY7nqmUdF2AwVvGhGYxLcqHqkqp8dvLmqgMDBEUtfs6W8v3uhxLlw6tqiJRq+mDSB5 M+pWvBxONpcW7GejcTdyn2JRgDAhzA0RwHCI9ZnsED CVmSFWbvCCqCQRbf8hZOPsk5Lk11STBcg58PSEPmbEqZifOgFICr64aHwqRcJI82rbQXrJfY6NKcMhJO DCojsAMnbnhIRc4VU/C1XecuulYqqbM4x5jibQVcCJSisnNGWP7L4aia0ZxqQMP4AKOIS1lk4T0a8FxR DNnXZ7lcIkGOgER5hKGsGtpJ8ncQcXklepaWPzTEwR 82F6yfXDpHcfgnaVLj+/WIZ2ycLlZ3pCIHNBQ2DgMK4YjZHg31bzZTOgRKoImHAAOzIkps7HDZErHzpH CubLKpg/gRxsUQ0qr38ulsCtvL0nDmnLQZ4gi5bumYEn2gG5kzgI2t7lf5zqqcsQphANguUuW2iUIPwl kGWD3aEjcjF7af/IPWTWfpbIk1GB+jDXpFv0OPEoWv hyf+QCPquZSj2xXCMW5TVPR8XFW9/wg/XOMPoOX4whNvGL6wsrfhIPK9TNOpGD/0rMExdZkKpDPuNL53 z6UvgMD31Ty5ML52g4zU+CER+bHgiRZmDyES+0HTYtMVXVi2v5UGCzCHcVAcNupZgidRDJU7zVHqfbHe mwYszbeFBevfudQ7dvIohKwbrOj0gfdxhcwpvA+[place] [file] 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 coordinator 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 school/abFO7hLk18QYgdmxIs9k08kftU8U1hrlEKPk3FlrQmSLKxSGeiJ+9ucPuJl3Vn4t2DKQlNMLREn8 [file] X4z//953/8n/E///health editor//vnf//iIqBy3F9//xVPXAL0 /9e/4oVLhzv+wP9oyiBOEKz99fNQLgTByDXscp+SN9SYdE5uch0yEtF1Px2utuI4V3k/sz3Bpu3Qv/6O 6O+tiRsK69S572nx3VJ5XagYUypP/lY4+zuRVXMt9iFwr+pTrH25lFjqbae/0/yFRH/nXKB0TvvZ3p+V aaK/abVBor+tqtjHTos1tgKbibtVE7Wh/MjweOPTbM YLCr+oAU5ogXhZtfdmbQI31u1op0sUm/Pn9Jk8hHtM/d0qZeqGU4iluJm8IuK+v/Ce4hvyb7sZD+VU+I 2f6fQa/F5Q77fDqr2+Yn69OgeNWwiTyFdtebB2akK8x9W1D4riJvf+4y2+17L+jiu/b5uv9A4Sq/c4Wb aQ59cnu4KbAYwj77Up+exaCvOL46N52pW/2Nwuh3qh BXu/clinical safety manager//w2hmkDJbs08Ef0l645w5UU6Yjj7W5027EFv2/5+KnCk8l3fK56i7aQ+mcdxnDb7FvgW4ccG 9yAea1Pxh8HWfK/+ZpkmKGeiHPTXFtKvbr+zl8Mh06a0Nu5g21ftRN2ksBt1I+kPykF/CuvhXG3jv+Jx 4FdIo0b/Qxh2KOMYsm/ki5vHt89/FTNwwUXbLW882t 9JA9Hv/B05/l/a7smhwHTu+TtznL/I7fdfU/atf/E/KBbhd/7b1dzIG20W/33ulytS0g/+OJwRg4jNqX ey/hEB4Gvrdz/CHRl+a5608KZwh//QCr/uvAVUF09XCeemUV3//bmWS//27rxR0mqs/eZqpnm/7w2/39 lS8NWH61nza61T9e56GRqj7+r0r2pFvBwC/ny/r1cb Tn+SxEu4DUqk4/M1PDZIy9C3FoM5tsoyiF2k8jh/C/BW0tpSBDKO7MXNo3/P4ygf4/joKxnk4Idhmv2G gzmnjXrAZ8Ant6dP0XHVl2Ci3ltMW4BlegWaV2A+uhTxinhD+ZH4QsufX+7QcgmSZ9hF+eJPtyfwVZU/ 0N8xEI/+MeJ54LF3FvYRez/xIOS2J/LBAu4FG/09mT n7Z2zL3EluJogf3zvoKurlkm/EX07cRmfuvHdr+Yix0zGs3C1WkUQf1tCvLUdzAN1jXmRLgH53TUvrdb oXbNH6Nc5A92z8aA/E72+lsYZSE8kcrd589ya6oEKP6v039bgeWrUI1/n9Zzu3FUQlr6RvaB3bQpUiCA 9Ij/5OR/qNehs/x+uO+73maTmv/l+Gur753ttFW36V 4qtKg/2y2Oik9kdUh+gsOFe5nt2DQ7EbojzJi4I1SgEC2BjIezDbxC4qOdjEFRXd0jVZ2J5vusUQgC9f 1ReOeq/+GeFuT+CrarPi+wa+ji7Iuvdg6c/TLfjnpK10ND81zso63ZE29/kc1mwM3uat16dqTBtk1Vtw 8X2t/4/iucYXnoifiI/+9qTTZg8Urroi+uHeeKfxxR sLR9b01WAi8BfScmIr+GnCR08mwmjxnkc/YDzO+NKjv47+Ovqb+OxpomtkK7xPaPjNK4rKqX92///Gg4 rw89z9RkpZxrj+++l6d//dz4sTN67FylbpjuDlEv/dcNcb+OoLd/o1buu2Tw2aSms25z/taCf6u/F9A1 /o8eM6Dp6/O47bejsP4ibqCK+wXpk56AtYw/3oLKTH 8n2r46L8RZP3e4jylZhJ37jach8MfpY7oT0t8zy0+EqrArx8wZUW5MQ61i82uehE1l52AzXCsy+KhxW1 QbY2ugzk66rYyzRoqrQ+ktVISq2oi9Ih2pHgb/l4UVH/0xGlccHY0U8src+n04/xIIz4/t+GkgEyQ6rM FF+Z8/sPincU+gZkf2nRxImUUbIhw9lCTXOSfYiJc1 hIupsYC21RSDD81kW+wf6gpljuv/fiPOccJ9W4T1uUitiPfYyZd8mU+WdL8662womiuwffjaz+wFdTen 6t4dbysAeb7FwEGZqlcdtJTt48Oz1PWFkNapJ4irMyZIq4/HeCA1l4Z9qnQm/8QPxAfP/emqFGA49V+o n4wM+zwnr/oaK4JSk3/inJ08poyBZQ3N740d5eF/qb 6aTp3C7D/vtPt70LB9Iw0CIsKVVqu+td/b8fzyG+ttfBW2UizM/+Jhu5TYb6Pk5j8iIuqH+Ij/7mOA98 5bvC+uBWszQlPZx72q+ynam/WhX+/paf1kcik3w6hvi0wV+QjGhw3dn59nEDf3ZX2QcraDlNg757HI6b /USk8669dbdQmWsUsjR3zu/1L0JkhGzmx1l0Zlf03s r7aULj40jiby7694gC29nSq4SgQBe8YfuV+qtsf+Ll7SYIW8drgycxp+P5WceptBVndZLNuo/wVbU/8J VVXaHfyHkX+MpSnoGvUncRzxt+8yAxsi2tnAi/F+ivJvRXs/BKHeqweh8Mo92p0Jr+2sn21El/pb/K+P 8gowzGY7o1moKi32eECP+8In4wiKuS3zyZH/kfHQ8Z vjS7++Xob+Cr+l5+en3brd+JOes5yT6/+/MK3a2Skb9roxB4D+de7ndBM4Pp2zYf23Thi2IU1Lo90su/ Y96418ROP/Gmbmk5jb6Wi0Dixzdxr+4Rp//3Z+qvKs1E/Rt2UeXMYBvpZwsNBj1M0WHdKR47qiNktnDY lWYj/iC+/xfW0/+/43r0sU7Lqihcp/LL3vy3BZE2UO +RnsVlmhmd9LTPGX5bhg+PVuKrinfE5//sliO1xiR6vo8LoJ1JjiJ8AFTy+JHfJh3sAFvYtymNfFHNa9 B+QB86JTi48Ah9/8LC+xLsseUmwQ6t22S4r+MF/A86aXT2XtLQFxJf+SvIfX0aqp5jr1WfU3LID/2NPX Krrakyj6P/quPvaIrsMkq15p9a/fM15gaH2e4uq7ev v8r2p/5ehzp6ee/NDac9Jx6E9IY42KyYmiaz/BZTEY/vW/vrVpF1Wo3J89z8bht2cpt/xdvC5hV7Dpya 5S+M59X/v2th/q7+S0vgs0yyobL/10K6rQmvwyY/XdKotkHJE7mxvK0fo0L89Ok1+g3N6xuoUL64XS8y Yusp5U1ZdZb/tf/3l/b6vLT/m8smzBLH+Zi/6ohHfx P91B55R/Syx9S7oaOgMWD8mAovgh8sed5j3yofbOr/yq8euhoSlV+QL4UvmKDUEjzu8DpU6U0Iiu7a3W hlm4j8Q2bchz92F4qL5fN1Ti78dY+O/ixygk44TslUPliAY+FpS7q5396Q/dXyg/Yy71zEJ80YHa6LAi +hv1ob/d3Yf1N/lf1K/VWuLam/qtTd0Ht9Fs0+318b 79Muf74Rc/sGcdu/w9/8iryfQ0tv5on/W73mbJi+SG7sNnM1ihor1diJaJ9kAKUbb86tNj9y6SR1n/47 4n7/lybPfzM+7Kqj50Q9BYC91YTA9/qmtGR8404g3J0snGWL+Vl8jUSVvXdz9tqCl6/rIcYztEi756m4 6t5PgFw281H2PRW+0qf1z/e1skSDj23Qel1z1zyojd 2v61HbL+nB72O20T2Pncep3xwevXarZa/VPB/M+NK0LM1q12UpfQ4ESlG+//crrPffX/X6rYZG7dD+Q4 Y36dfjRuOG6tujP5pshP+IR3+l2ExtEu+eDfLGXe1X2/S/cEWHYhJz2kw+RlzR/3dAy9ACNgA3xyl+r6 LS+g2V1m+kpFT0fcaGo2qn5P7XG6/YrVn6d9M5yy4c BFhU0Fx/CWBm+TgsUl58d/SnHMuG82N4vp3noCuc4fezvwhd5/z8ATyiSr4wNDNeehsYpQTdW+n9u18R F/Sekaoudhoe46x99D023y9tEEDnoHXehp9onMBghrHKeH8aEaci1yX+ubc0Z2OodMyb5dQ65bYNd/e/ zSfLj/sbuVak/jydenugaCpua6l1/t/Xhfmb+qtT4Z 7vq8+7dfX/xc6Smqx4D0WB66VbD8G7XOleNzdseq+qwhPp+58prrM05Z+F+39fVZHeEG+Fv8OenA/6qx vx+Z7a658S+n8T7r5qKQL4k0NkaFnw+/xI8/5Vxc+Wf96/umHE9/++4nxQ8/5PwKXpn8Z02InTj9KNdX Du+Qey1Ae7xJ398t3d3+ep57CHQpWLk0N/YUBiR44g Ikw6g0X81NnociVU0Q52/f+x9c2M0tpkE/F2x0Kg08Rr/YYCXynwlSa+qryCcibi+3xfd+NJ3f2/r4mv lunnmwdCYk2nPV13L1Q9+lxL791+5vlgps/zwRtGfP/v6+uyrG65vh+n/6072Th0pSRvmHrlmvcdWcWv raBbP3E5Q+ReWwkynAl0ycfG6R8wOKHTmyJE2ozr8K 3kApPs69TtS26FFx2KQ/CFFeMK/BdWxCvSG+VL2i9Vb8gxIwM4vN3i3Csq1z/sY+dhgtVHOc5werp/Cn oz7y5Yxwe4xotE85oGkC2Cgk3voWEuCXp/13ehk9b9phPQ2R6wMN6q80I8Z+mPT97m6KcZCe4fOda/31 J/FePfZCBeEC+Ihqso8INsAV0UZfV3/DVRpDfEG+Id 2I06edQ14a/LB/evbLa+zur+RMHoq9Ic0DS7+3/QZv/vG+5fWeqvKrxaPnOhfPQX+sfbfl9sx+8j2UR/ cf/KZv/vG+1bKsjure4m2+b9Uwo6vgqint9tsy+zyU5t9Ge2kD1bt60NxJA+Dzyh7h0ZLSjhF7i4sobR dwi9Hej9C/5Goi8cAsz4EQUB9n0/UwE1PPzy5G8J+3 /VCE2I7R7cMS/6DVNFvCG+1YedheR1ikag+gv9lUF/Bnm5xna+r2H+EoLz8k0yZHQ+ylcj45Kgl+I/2l J/zIylxU63vB57KZkwFtw+6thV9ET45f+Y+FBt4rqKj0YxFb4Z0kbkh8i/XY4/j41RkNj3NzgJ3b9XCP Qbmmnk+x8xb/2G+XI2m6jp8B+311eG6nsRf1u+wxJf 5X7hrd/4/6drCpVSjK0k46OZA3BcKhRoGhxEGVZrGWpnednhxpllnk3GCLSFAuJDIP9p+B+chsX6th+w 6Y2bln5tzL6lgzc0gvU8RSD0Zd6y8T7xQ37aXO2W+73AdS3Zxw8xebGSg/IXyvo51QX+aDgfNJwPWgTy +epErz53ejb+iCkqj3h8bcrhwRhV+rJnp48uxIw+7Z Vu/3ZL//acG+tzKrCBpxmxMHBp0Px/FUv/9ioTyEd/4d/u6d+ulUZ+n/96+hhYDUut5V/76/Bv92+ifJ 93e/b8KkqRd3Q/w0+6/Tf86/s4/jna0/tf/3q98q/6F848kuCFd+/o7NP9+F+NLHP8r+F2p185o3RZyx //1cq6P/3qbIhP+mevON+gH/+kw6RU6Ak45fs/ao/M /32/1c7jf+Ul//cvZJkb6Tg6+F+N7Mvo/ZEf/Eh3ZsnwA3O0+iG5sGXVUutDl/ff82Rk7RkbsyFwntg4 Kz/flx/0Ty0WdsJsyfitv5Y/7h88Wn3bTpj+jal5NwJq98/D/8rhf+ViKO+Q0/PZJZDf5/dimq792xT3 n32+34YJ665X7F/b801bjwE/aabmyg60p50y2RL1hs /12ftfT/8cc3D54ky1lDk8u/zWmXe3oj0+X/DV5wu+2h/OJ22gBtmzfZjzVkg7ujAxJa2A/YU8YV80r2 DfZSiP+vjmna9nb/ibJGElO53TRa2UFOhshI73mrbf156X+YLy6C/0K4d/f9v46ty6312VX3G2Wd8F4b HvKN/+/U96B5PiLL/7I0/96qZbfulXmT+QLyjf/pNu vR906/2+5/tkPds59i3yLwo5fu80Jl/efZhYhOri640Up3Md7QcjzKcVlubxz//pqP2Fv8Z8/tfzfLDS 8vQZ9/rq1rtxgRvN1xstN/ZO8oJ6uzSLYb+fXurn/iFmBi6iK7wJ0gm+ZW1IRB5b623+3B/MszM/9wdT 9/Uhu0HNn/yURj3DB/Vzf/RCl77z0SswODxr3Rmjj2 ydussC8A3PggAEgG/+Lbv9OAx+4Wm/lsEvx11s+rYTOt6NWW/ZisZC8rt526/U178P2SO1PJjVy4e/qj TmM+xXDvuV1/yshfnKP8cIRM/9u3tgwkO9Zlou2EWRnvIE5s2nL6u+DAorl2m8T1yoC+X16zKK/LbXxd f7/Uj/qyrjkB/VO0zRoD9iNw2WtO/xUszVg9pS2FDH LGF6LM1hzwG+RbA8OTa9V/jqJKpRrf3qWELg1sqOw24tOxLZY51L9/6OWcfCoF0mrCqptG2zjdlmJWB3 fD+k7c8hC+PM3TgRaYlZ8R/p/3SPy3qjwShjMuKj7D0O+n8UE/2F/1XA/ypm7/eb5m4qPrisjDp/kd/2 55gLcvB+J+swoBseuP2Z31whanLaYiRw/KZm/49i9v 8oUr+KSr/1KjI+w1nDY/X6HEve+byNLwxZNYJSk9p47lqtR8v1kv04rLE+h1MIrZxrqHJ4Yp+fPSGWP3 +YIZM7bWJL/4toam0CO6vJOphmu2hPub/S5O8BG55vd5k3gnk8/b3plp/+4roM7w8JEC/2/NeErvcfjO Pfnv/TOP7t+F9WtV1jJGPn/1GoI7/j1DC05f23tn6C ukDDgZ0Hum8i+2RY+0+N2sy66qyE3q8fxK90uxuhJ52DF+S3/nc8B7b4KlyyiyDNeDKOtZRm5ucwaL/z pkJyI8N7nGNmEuca/s/hvT8K7/HbwXvk2QaruDD/Ib/3g+HE2zlt7E01nBN08i1gFf62r9E897zhQvF/ /cmllp5v93BJ2H/8oMtAm3tEKVASaOb9d9Hgm3pf8a v+HDgfjDwfzHUG+dFefyDp5XQaIw2X11+VdzHi+F/N/Ecc/9sC71arb2sBa+N/pTn/j/+OFp95iF2o+F 9V34//1A4kwVQ/3XFaGgtp53zrVnc/alX69/0QbopaWqR9v5l0McHBhgH7QrlEn8k4tVwW08HYf8964K eRSv/py2x0m81R/pN09NaYegQ/9mfYX7/fjfuDG/7t ++v/5875emF5/2h/dZ3uvh1l1J/7T+7PIL/Pu/fX+9/9OfIDctq/fX8b+e0/uUfvf/up33V2ng+7Ef9q F6J78Sayb0Y3iQ42W8wa8Bo32K7RcJEmBh10iU/77Bv+7KtB3pP+zj2x9PKtSrzjwcafdkscc3a385nf tdMT+RP5eL/BeowORjrHP8n2vlxS/elipx7XV/1kS+ agSiT8V8/dTz/Zs+9LbvhfbehXG/7tO/Now3rj7A2t8oaXGu0qjnC1M+UV+bs5iGb4+cKe7T+5U7+6ae EI2uJ0M/m9H9wV/4riYlkg7/r0CyHZgdypL4bEkL6e7+dHO/Wrm0Z+6lq6fe6lR5/Pe/X+d6d+VfLR39 GpObw9u4492c21j55EcsH6cm3H+FA59Icpk0WzzuOA ml26fxg9CmF9yxs2qv260acPM/Jbn9zn/xQrlPjqO5csrO/3o0zj9hJ/sMqc+4OpZ+46N9tleihPW6xF i+L75wX0jhx7zRtq1t+7CoQw2vAb4lp3bts78FtABro/hgf8amo6op/ztvZ/9yb0nE36u1a90+/eeT6Y 01qjd185GOojV5jjz/I3WXpN1/80eyJF2fVaJQqG0+ X1cjyrldg/qbizaD8l6/vdO3p/cOD1TWWY0Z/ko7+B/qZ+VeXx/bl89L6pL3GF/sK/pSfIy9L/A/0N9B z8rd738L9RC9n38urAr/qNhvDM5gWUwyYdv/eV/i55ayzZ/TFkOm7U//bKR3/w383s1860+peI695+bv R39/u4k321ic7JuPYHAoR72h5NqRwtm8ut7Z7nbCUu yaziF0qjaxwuN6tTLFA2p/tJhNG7YgEqXBcOQKovTwIKqH7lepTASgM3ZjRyQUfXq7GgQJzv/1h/RIdw +BFvDfkj+wBQf4mt8O+zt4xPv8qb+Omdkuc3S/FW5j/ijMG+xO8M8+jgi2Fw5gloeId/iN/5u5WdjSu/ V8MfQw9znxJlKO3cEiL+Gj+JvP9kJIXC+43BOHrWHx LhXGrXOA5V1bmRDdwor06oYZuAL8eriFZk5/k49VlRGt6SrlEDYLJLIlYNSIWROmUBfrfnO0YyzTr9/i R/nXSpEt9G1JcoTic9Hm8/BWhrfwS/hdnr/lyJO9Y5oMbk/hHjqZw/1lvig8EeIN/E077/iL6G+SOenv cFiJD8WkvAvYp0IcoVTDvkiuWl3di5MqrK2YLI1Ow8 qcku9BhFJqSz/D6E9MJo156DTMB2ljVmp+hnyA4MbiKgmjrf9mSr2ieSEkgMljrMwPozIwNUm4S7+7PB pH078Ly4FjtOWR9l/zH1pxSIHKrXI0OlbY+B/tjDh1NGGou0eJkhI4R7pG0mX1nBPx6wYdF+S95iXVoN rwzzpY13yLmx+riRZvIwq3Y2d22CxE+pg7HUHba+ft LU2P38h0KnqldbW9qiVPomtjzl1Yt6qkma4mYZne89Ry+0fYQ8MoEY4wd9pgL+R+/zW+jJxaoZEAu7ik G2FfWjmB+n3ulR/rw+tsL5mV57du+q7vK5OlagjcoqlY0I9Iia/PFe6FnUHuCQjQus4E+Q42MMjBlZjE BP/F/ClHUF1nwZ5tho0JMAA6YaDWxEIRetlEMjQB98 q87+yBmos/uc74/fgkdVKTeueBo0ZgDLx26uwHbN1/yl/c8OcotGDa67Yj5A401Jq5Hjl5fS/zkLbK2s nCRezS5TFi3RVOG1ET9BgmqacZ1+A0KABp6tr0BSMZioTpgpWh+i/7CGxjSR0/4V1ZXG3pWYQEWAS1cl 1C9xJ2aVbxhTFBoM+AhtflcICf1BmetfEoqC0GtkHt bwSiL56Mzh2pN34Ducwb2Ai37iggylDioL3Dqe94nLaUCdYK5ocME0fQm3sdbppq2Kt6UH2msxOSsTbU NBxtJbeHYRoR1L59PWQWLnX2q6pRpOXR9BbthkRlok4fThlQyZi4T3PMwOp8Kh/q0Bd50AXu+G3fMsnO 2GY6+V9lONtSWye4RC+ahz5xyv8TcX6gQW0bQP5Syi qF8UKyhg5cr9nkwYeQxRbswU8qFro3z65e2N7JWT3OaYzA3Q4bQvRkkoo52FR+jSWei5TwOr1yAvMnUU efUG1mkkiBucl6PWwrAS39SbhIK2XGJ742KamCaVfyznvtLHxGKvWNTRMQh8NSnVFMZrE6H8etAU9j5B 3uWJxJDPQZvMt9wozZreY2kg2UVHIGse/heM/wXjf8 H5X/CX6faxQCcqWH8tAVgxy+KORF4UfQKU+Y4dGIbk0FrW96/KmMU536OItVz8fQ8iuEkhtCENJcYTir KhC22H1k66GHEv9riRPaaTCCXW3qoUh6SG25YFTEFFMdSv0A9tnYbT1CsStZto+qObyqO5HvhFYRW/2P gY1qJVQwiU2oeYXP37/89c0jMAWl1uo7uvRw/HOrrj GfHHiaZ/yB3zpW989Pd1+xzYkxEeJ7kEtbn/hItmeF11E69I+i4TvqYaQ35yI8hBS5/scGvCtJv08CGy m9CJrX+POwaPMhekTKiZRWjEKMUXJ6Vx2Yms9/vEsbJQS2xmTQdMQQHLN4tXxF43y4IGR1qXpQk4JAAj T6izg3Jm1RNNcoEQqWyPgX/O10p3QheMPFv/OB0zZW TQ/lrEowRO5zbvPyPdjodi33lnFVxV1E97YOvTLOw/w1W8unM2/xwRDDWJBTKCPV6aWCGAfrHrACU/XO LYKUqAk+OsE+QI96Wt87Hy+GhH3Av8l4CfA47M6qTdGMHB/1OUHKrAyOMV7bprTZCZdM4yFOmcXLgJcf 1mpUKSdMZQ65/AoxoP9T94HhO/Vv5rrF0KQCW4eCXF QcemmfYKXFzLvJOrNQ61yWpZ+X0Lcp+rtVX9wby/SMcCTU2VpkjB+nXkGgb7UknGVjj+Das6v/Vg3+fE sqK403S6ehRpgfHf4Qr99ZL3eJBI2A6d7RrxjS2IFEvWZFHTLIhQ5n/PwRxt1aGFm00hVlPBDFK7r8g9 KqNQd9RLSAgOLyvW2+brskynxOJflE6dIK36XcIK+N hh97JUiEUETTV23hpFJ6aA7z2uW7illdAowlIrNBlyrqh5w0hY74+IwQ7NQl0yZSDL1CFyt4aZyImAq4 oF9n8E+wJ4SnZ1G39wWFp04ImvO7/HCcibSN8kck6kNboGlQWuVKWRvHHXwX3dFx4hskjo2X1bux9/gn U2W9D+46MC/e3YeUSmnKbNM9WBCkK9GGV6eM9xUDT/ E7Jl0moqI1Vr/4ojHfh9KZrZzbDFMuZkLJ+twlbzZVVd2FTfWW9RpL00GpfpCr6Vj9doBOt2P5MlKImu PtHFrMFjx8RivYn1o9KxEYlgJIZ8SJH/cNZSXv9fp45dSBJ53JkaF31DKium7usmORdstcW/jMFEAJAx EQFkzI+QgF/3QX54UX6isZSZ30GP2OYrgO2lf82TQt jGVx4cpAU39jjbuPKneMIvMwLrDmVOWEIcCJqTxNfWoNQKQwjOR20kNdIkVHoZjG8lsJT76uihYPbdXK epRojK7knsP3cAwS4oqVAvzM2GnmLMkvHGyiZ4Y0AJ9jAQ6nggldPnXi3Ev+cxH5KnRsCfx4WfQmSG0o wDe+RfSEXRxnpjZ2nfDyhJAnD5VYhrf87QCiZD8Ser 2DTUsQKx0FeB/VnyXU7E2MCwfDxc17ZP1qtzKv4MUiEVTyYZCCLMj0iTXEMGa/lxXzVXuX7aNzluKNHB h0CabMmqlVbclTrWT8ZEYXUyZogA0iD/VrHAqwHGYaXbMOKCuR3MppeYhcAHR4AJCQOPT1zmQE3Yd0Xw LTEbRszmYQFF3dfqbC0tWqNmokHWzySfFjQ4ttyP8F siwZat0UpF3oievHFEy+CH3ZxzfdXN+CDR4cyBhJ/Sn9PJlxjxX9c9N01PqkP46WruxDaetpSmJT5Yek +xtlhtOUpWt2Agx2/co6Omi6YwW41tP0oVT+9UhJ60rZM5f7JjH55U4UHLIMWWQS2JQl6yL0dgT7bYdh s17sj3W4SsPmmaIbK7ts0cIKHvP5JTWYc+QgfBoDnH qmDHKCrlN9oR19pAWHB77sMg7JutzECkfXb2E5Zq6OkrsJZXGPeMwPK+rSiv5oB6A2iZpOmtoaiRN+cl 7EFe6MAr4lkVYZTjS83rhCVuAVxwfa8k3bw5vP52ecHziaR90Ou7p0Jm/puE2fgFa2bMendI4ToPbwvq hpMuAhwD6NEBU+QdhXchX52lUF7VPNDcKDzYw8AEOX HsGy/cUJKkkFFNI9RnBRRZVzIYssBUJioJZqpVR49UeK8MsJ9jupIu7PjKHXuQJ2cTXcEbkeEzMU8Bir zJpRupZ9BzIRVTOHzXa1lVRzdBqLPVsQb/6J+40j/RD9qnT5X6EQ3ydyPIEpGXsuNNnTRQHsxCR/y+BZ Z5xv408Py8uRqy8PdldvV2w/UEXcCVj5Oy6CDkGBnT QcQjim4OmiOdTs3oLOwZKWyVkeI5Uh6tFDQKO7CqwaVbooyf4NQDS5UAP8A/aOPepSPP2IdRbyimXfX6 VpLhyJQTwLeknhjSt6jRPpq6BCOoiMCF7qk3c/NWAcV3PLfY6zB9YrJgMwmVAx4FRmqzCfghEamnjI6Q 0Lvu7AMexL0E7J8DoDweshGAxRC4KJCATteG3Wxej/ 3pg3IMAgRXcbZx4Q1IATnVTH+TnIlxU/gjFZrCLdbhNEbhKdSbS//Ey+oISyMzBI7O/3MHK67oUDWvnl fEGfTUBV6IKmoMC+PIA29LElMr2WnYv85CPYOGpgVXsnDHyWKtte0RIijGcvZcvhm2SmPK4Q1s1BJi5w lA052JyP6BmkF41zJVOojjjsFq40KX5dx2flxa+Ig+ s3wRS6Xd3IkdC2eH4NzYgAPopQAb+R2Ghyxls55e0bEthByNmzZh2A3+BblMO2U7vSL0Kf5T0fbRxzms 98r9UqbtfzKIwbyXa9cRCs9cj8QRwcSF1XOfvC5qaaZaWy8Jt1MEvVhdKKkczeUZo8V+EkdPfMQk5+jK 7vrTk9EkNKh6JZ4mY4+iSdAGQHAFnC7CK9mhSdwA5p Qwj83NodNuExukeCySA1Pu3v/0PpU7n76w7dixswiK/dBAdH0pqIp6yMlBJiaOnwXz4VvlB82b/TAP9H O2oC/cMy47Xq8Az3AFG1VR+GgU0V+O0a0rK9Td7BznEr+uV3PRVa2NDcDr3IExpAIR0vgxT84vP7vyv5 C2K7zYD9AdE2UVexImQ04TuRYo8X+q2Z0RUQiHFXeD awM3YsjkmCh1uOAeKW1YrbnHK4M5vlY42NHywzvIo38ST3ButFoW25C/CoA1ONKgIwJRbo1ykU8lF8UC 9uosA0jYypAUyM1lJj9VL1aKvHm8HIyDOPgdoccdW3S8cMyKuX1zhXSxjt1YAYBDBcuJfAVoDQ+j5Bg5 Ro6T4+TYY87Xb5Wzkea8gmX/UemfqPRPVMW/UVUwqx S+quw0GfR4wIfSI8Slj0I1A9sxdPmm/wGGAEGOk+PkRK/+Kj4reE8T5TsDETTH/1yRUJV9Dj7HqZ0dPj Ka7bynUs1RI7LlUkUlSgdvuTV3tVx2wQyNlzhq0l2vK0+nz5CbvYGy4XWbMrCDGo3jJiiDhT+lgt9mao cQmoDnUws8XyG6u4xw6eCR9NcSrPLt1GR1yQNhRlh+ bVpQJAJpSFNqJzrMmNTIy7AgKpaEfJtkmhpwEtqTvHCfPbnaDGFUvTPNCKoLt6XgLIIwvvlPre2zVFCR XRevplz6gqwQbkRgpQDK7+KPU6HQ6XHpvZv50BRdphMgkvWyQba1bWMXnQU8SKmd1qedaP5tRNLlsELw RuK4SECYOQFJk3GyrPvVYIEgrpIWVDZQuCb39d0udd V/KbD7sRWKoCycpGv5FxkoTxv7IURCu74lqqWMEL6KzPLCrPEPfdcn1bAszHjmjCsTYQ2toNBJqgAifJ 8nfT5iQNmRI6IW8MWRNIB7n2rJgR/mrG98duxBNWz1OwZt3HwJm1TbvpNAeewXcLOFkfSSV+DH87DGQP xZJiWDjRnUPQu7IbJt7mMaIxFFy2xJFwlfjSOkYGYJ Us/Lk6CNPSv6hRAVvlQPTsWnmsXEhSWgoUF6jZ0dMYymNXl4YJQQMmB4bdmFMG7QGgcaEHFk/swogIpb Z6E/BRY1LjPhPbTgIqbDanDD4wCIAOC7wMzLVIM0xOtHJK43vh5AxzhrHeOsdN0XjtNZRLmQK5OdneUI WrRJZkx8UITO/huGyH+vyPjxh2nqTP+HAHhhDm9I/o wKwCJ/D6T9EuQRDKSchSGqrQrPO9I64TaMPTRPGB2LgiDmoM/CtKfdz09OpnPJVoQaeFMa4Qn5goEnah VscNKe+AhIU+qTlFmiNXFYlpZl1OnI6bwLcE5bnQ8WDIuK3hL4KRWlx3qbXowWOanRdgymjfMZxaf3uf dQEIMc+EDZUFt0R4uDmS5flVvoLgMzXydbqGWhKaTv Q7bwNLEXJfLEG7uGorhOkonHjPJZ5Q0ONJoom2OhD0OXe0npNVQ/8SKV723QiQKOiAz/MDAuschZrKOU ixbh9hxCJysNzTOkZM89D1H8mYpZuyFYztI002YIdkT5o8SG6PvMTHhK1V4V6Q/Z5U8uyAkmRUIiN0Ka QqB2AosCg6+A2fV5U16+iUb/SFarT9oIF2r+iYmRUa u22Y97I4g/IVjjy0r3B8QAy83AOI7MTzxgDcjyODafhUqtR0833qyQ9MeiP8soa9jK4eeB69588empR/ +ZMM9lvn29KN11XE99JG2iGZHQpZTXjxJhjqwgkXIsPGxWkkFsPOJ5Br0r+kzB0R9WWu9IRiW9s8Hmeh QD+oEP+Wb7oEqoe67SZApKd8zXbQd8cPoQPEJ+FjmL d9SHXKVL88xJozH0iHN2sDOALzcUjRO7XLwvU6HAV5yrMuCEynQRFOcBWiTcVUCYTgoEMZ1WbRu3fJAo 51mn5qqG8PKQiA9akFI71QKtbYPY7NXt/olO/9EiIMw6lNDOmifr8ImYdF5wF8glhjkOK32MYmlORYa4 fX066+C+8tRsyUoDJ9RxLw9CTKs32ScosbaB7NaiN0 0edyHaFidMS2dZ4FoLeEpP7vZfCGIsiQJ5hw3wD4ZoK//DTxtXdxKsggqUMlHRdvL8GE90mfMHCDuQUx J21oqpPBrG3kEVycDRONhe78HCdG7Z0VodCRoW9PDaDELJ4mkmMUqZIdKdbuZydPirnzPkiizOqkqaqH PSo2BdbUDx6HaHUZtjJQLZV5TlcOekNAF9IrXebHBg eISxjpHjrOPkBDnBFmxK2+OljPxukpiLS1K2vgLETSoECg46PBThN7ORch6FinEz2mJaddX9V+F5zCL4 y2W1sGnpw/5Fn59kKb8AgsddhZ83MZpRBOrlkbVm8AcrIWzwd2gC1RZ1sUE9dP56lmljW8gBgI7XmGhw 8N2Q3L2tdhcY32MAkCMcTs1n5+oanYDvvge/hWNP9P uRJP0XwyG8stOK4qU6iHdd3YbpnyBa1nY0nEox30VctuVVerQ7VUqNlf8T01QQwKAHYww3xyrEmyXpGY E/6kuEeTs6GnthRhnYzcxl4gkm9+f2nM4zuFski30EEgPLRT22MLbZC/ZPjdSPXMrzJ7sMmEJ5lyS6yM Kgw5JIprC5eKgQfVUQiibhVF0xyXSznxOIaDOIwXhH adIK2dj7nTWTjSwi6OxDoHIRZ2eWfXxuZ69vqDcfmEQ0DOqaNstpSVBxZrbA/g3PCrCAA2auxotWPIod WJpbrKhVxStGO2gCSb34Y4KsAEGAG+Lmw6QO9OFvrcJwcEqWvPPQcBrwGDtyCLJUtBuWAYV8XJR0HJIH NkYCU6U0ZgWxHcckFiGrNi2M+cdGr8TdPi+0gg+Naif JiEitGUrQjmoCnzqIYycGM4jjOACIhppFhyXSMLdoeoLK2bOFsrwSIM4TKQksOxpuUVrF1SQFXfoAhVn j0ehS7HZo/OBp9C2QrkrZaX6lnjV5hQ9lLj20Lhcx3QccebzHoxytB+0Kje7LbKU9P9cOG3dLoWSXxKb vY5wGNc+VLhdJcVNL9m7CPbGNGDCxuE0XQFID+qqHw 5UyXpPncis0vgF5sQ+RAKfrK1Y5rdl1y9TqK7StH+06Y7yR6vkaTAcRGO9KmUX7aaRSrDZbpScbCYcZd aOUiWc7iYYRiUuFPB+91SuNuu0EgI6i0hzrWjFJBvF8mCyNPz+mxPAE0s2A9p4Ev90oEfICjCZHJfvC/ 1IaTj9uq1uBdCsVdB2B/QvDfWOfOVQdnroVSUqJjkj MxQxg/XVRZ8eCbrCIysUxSdFJwQA7BoVGUEFMIvdSPMR7pKu/nqJs8thy3kqkILU3aru7bhJ2ev9AYtX 2oKLfLlN8a3Pr8ZZkDE8SugBhljq2EGHG2ffFJ7D6wLRjUGGEybUykWBOWAHr4JHaNK0OVBtVsXkOnSH bUsteJ9JSSh4SYrIll4y10d31d0yQf0bsdvJ+86Z+4 T2bnnrolIofRH0bV+DqlVUtgmb75V/cUMrzfhHOjyeBIssgVpfv9Nb0qCTVmmWs1wUCeOuwd5Kzlqlap Ww58I0Y/kZCFpkyKK31UniLL+V0T0nkeSMt1xB8z6va3ooNnSvl+C4V+IlXMe/eR+Rq950nMhJG4T7XW NBJdOtxII7sUtLwNnMgOU1mlAzIREwwVDmvcRgJTcm ZNjLvSUCCuM9Pwgvnoorpm95z51TRaFpUaBftJoGDYKGka9WUaMlmsml1F6ZZuhWtCG1g3FqXRHAGTHD iwoSQ+yzRuIshEGK8kDP9d+FzYGIyZevk7AS4coFrKHaRBMH2/vrzt3hpSXWS2nFzKET1ZJSrLsWOOar nscm9uI6xD6TLgrZNk/U/HaBX4TUwR9Wuewg2rBB9x QvcBQmjmChyjAF5IuudmiC0Ty97UHBssqe0y7013nCPOSY8ro2mm0lholFSZcDpYJCUPPeKZ2NSRmSpG IKwz2cEzGRUBlN1EhzzNrqlIN4p352Gy37RmXJp2e/JOSHUA+A3D+w+12mTbvqr5IljOcIeSVnHVwO7pAol 4eUjqaNm422Q55lyEj2YgilUxZRnTwFnyxeSeGiVIB o3gPwOVryvvP12h3FhQr7elhGCSsQOmKv3eG7aXhW7KE5TKwZgEMh5LHVwa6WDvcqHJMieplVGovLihq E9SVSpqzTAvMebY1N17wg1raE6SLxG0SCGkGL8Sed7zhaLMtUa+WEMfwBMJrKQK1VhaWxzo+O8wEWcRw 1hpHHvLLYQ9fDxTJqho9wE0U+GENaA7R1qW+ JVOAtUcqsh35bE7BfFbnphjPc/TCFPw2N2GAH2cCi7dLG/ZE+WBPlMJjuYSRY+Q42+cvNFuPe2AJG4EA d5NuVNiJQJGGQlUlWOZ4jaMs0frGVfx2+UZWoI0diVW0OQceeqJqkj9SYwY2JRLNJ+VLe+ItFmxB3/mW M7v33uyAhhbG69KrXD3rYAVUJ4ys2xyuLX9rwIQC5V 2jfPBPlE/mlseg2Wr6gXW+jyZJi37OJ670Zw6S7wUlaS3fuPtsaD4ghY/+ujXnIgUAD2lo9CiKzdGwFZ 7QkvDP4cSGNy1NbfYU9ze9sxeLbjLfccEYn5YIQn5MB57QBBiJhNTHu8P4RZ1Ex2ErqfrQz8ypUTDTC2 ct0bQKgxK7ITmVQst66PAHtvH+IN7C4xHhHN9Tu1Sz aU+nypS75VT3hpROl8N8ldMn47LFCb+C59YysZ80ElkvAYrF0Nrwe9V6Odc1GNdeAUfEcqB66z16wGJj 5ggIAGO5STgetKG21yzTRinot2O0IiLoLGJ4JuVmGE4BniHb/ivYR1UaF+MY+Hx4zeDYzGrYcguqDzjw E53/DizPEIbj5VxFXRrQ09J1q9LZsBgmn7TRiO+CB5 +mGFceWM6ZIkbOwGQw5MNIphIybSj4NQg1cjohj25qlTHEtq4xZ+InygdkPvngnyhftK+ufNExouTL+8 8Uz3Bi3p9EdeLA1xvQ0mLH47p79Lt+1kcl1mho4z07kbu3S88z+93dxIq4dfWz1J3qR1cDHLwHMH7QG3 6mPTt5AOiiS/kH8MBuQOkspojq4wwVs/iJ8sE/UQqP gNWrfM4JDHAxWCA0t6WWyo+34HvzPfDhU67UbhSZ8fOOoeDlv1ke+BYKj+NeZm10MQhDfelkRAqREGgh 5HujfWiIFRgL5SYK5fK3zdqLRqWISQRN2CQicUp8sHOgecAiPMKYXUjJtdndu6M6Buh8m3QTbwRqdlLm kRIHLDYaQTrKJLiGl19fkdIEkygjK7+lHxqUtiltgy DeEhK2PcjEXUPx3CBwSRaCR3dM5YzzRxRYFUproKqVGJb4MdcQ7FWjODkIeIMiscHYuDzaL2f0AkZYd6 S/quOpRh8KdG92GFxJPM/M8U/QtXBFpUbC4JvTz6UJXvW2F0addjpCVcOTo6+i1zd3/BMjivNbD/aVdu 684LlqySk6L0lFj7Ih49g/qS8JhhJpTzUbttjCp0CR 72GE7I02EeRFg+ddoISowkgzHv8oi97xFdNsRvfAhGRr2NXm8FupFXUiEHARJSLPs3WimOOmKZIM0qH5 zSrH9d0ycXc6mt8eW+8HsRrtJ8z91nSrythsK8hb1LoojO+tYq9m9j9+SERVI1kS2qvyfrFj/RMvMbG6 4JFqawEp0eLFtfIz/LOtgl94UqLtu+YmAXL4N0+04H XAsM1CuoSkC8u+1IF/unt9W8qwcZ1zKvQ3U8SsDlwiUFz06RUxkbKIpyM61qUjhezQkpWKIlAXuOmIYp duK8aiiREZKES6Mh319vC98jbPkAZO53b+Mpz/cbZJ11q2DSsHS89NIo5EFgavBxHaWM4hxjXNCP2yJ9 K7OquDl9A1S9BhqjQXaL51YVrtkxypK6xex0AEvG0Y RLai8beEBY65F3qDhrTF2eIP1D4vYTiZdS0b+EzcwG2SGigVD3u4a9FNs+Gw3ulNDaJ2BEOfykovQLvz bcw8m0PMmETjQQpfX73VWP6z27SqCcjO9qnJfMQzHF2pkSwHPp8zZU2kQKZawCjtvYzc7LEizdkAygJE jgP4kXBSw9KSlHBtWPa+JE8zOqMycZ9bngsE8sTdb5 j6KbP7eR/W1VwwJpAVjFsa46OKlZEDEv4gJwGOZdydAWWPMW4aU1M5KUaxbeiw7v6YluD3TMMEPYRQGE EgKmkqOJWW3Q8m4CbjC0JU9Qv6hsEBk/JX5miqzC9eJ9+oYua2SyZrEJEA1ZwKv6C9HiWuiQvdtEDrRR ZaUQvRHJsqQPvVVYuBdHgiLeImCRf5zfmHgLZq2+QY IIJY5LWhbedYTjETOegejM4ochElY4zjbfNYHaxzNxpKfnP0EkpjbCbDHrsHTyWSmEvYRttGbf7CPCcu pZEYHX5G5gnu/t1b8B2ftcgLwDQqUXUiQEY+L2cpDT0O5XzZGXpoIZyWdxrFj1PaNl03fvrpoKIrIMZf QEL6bJA+F4z/TaMECINdmEI518brggsmKJS0x9ad0f zrsi311/xSL4vLBFos0dVTOZugfXbP0+cMwH55B2N5aZ+pmkmMlojZy4y3cHq0gPG61fjF6G3t4ZeE4r l9G3BJWCX+72tDK7Nu2el/An9Nb/xGEV/4z7niD+jKOsY6/Dc6/99UB2EZr2IDqTxzcveRYhbLOcQXuk NLGDXhsshZr5UKAIwCtqaQ7wK4mYIjjhOHtwFnjIGX 2HSUSjcBtUOqWAddY2rG1tDOsHC48wdqpND/4ZmvDnUh5BrU760bzi1pv7bZvdS4nhgrKtz9hyYfeLfr LbVopjT0YA5TylHObV5lLZt44px12d4iftiQh++8rkK7Fey3VP0fWbk1jFaiGJazaaiQ6mp3kEi4vYh4 DD552ijanxL/9luXwmPJrzHxWPK+ybqJo9UTqatI8T etZ94wuqXhVfv9Gj1aFVXfN+TrKF0jekqb+2qZ2LzWHufkLt5ugL11kaglRz/FozgnNlB+tInHslJtTT nZkacR8B9oJjouZKzJeRC+9JUhLPqPRUjuAbRHFzr12Do9tgEMgJBOGlG90YRqCE/DxfBj8h54toZrsz 1xbhFqH80z7kBdBLkd0PQdUKIYekTSXf9aFFQ9NcQH wVnblEVpOGeagnOmCdw+mWKs4+HuuSGE7MxCuiVi7X/wqF6wSslN3oWJ9qSpz2zUDAzHMtSbrBfMEedb MNZ1XkVI3OvIUJ0bGNK2gPtZYy9edV/NHaFPcpBYB4c7m/KfxBpnKo2XT7bckZbs8AjdtRbtzqQTx7XC aWBxhKpMso2s7G5eovgFtP6RaYw4oTv+uzQcwK5pJR ws1zs9LEGL3IyGT7HII7gmmu4fqiAH7xok7qQBcplL+2XKbB4WolfjqdKdX/aBJWIub9q1rzc16gjcTo YFLE8dyd8EMXfM9g9tBx+sOqknPoJ1+t2YSDHbNnDdQtyBa1lURGazqVEvvhUpFmP5Ho0F73x8Oc3QEn lH7CCNYvthsHc3xzgo4P8n5RekIT32qSN9iuLddjXe 55QHQjdfcDMsSXyZ4wm3Nrho1Jww4MiPk8EnuhOcOI7HXkGQM4qAsuYUU98GadodAyNkX+KxNNG6/0Sc iEf1jbfQM43Xb/ZFHDYjs64Zv+C1PxNaC1otgz1dN3bQ8aPAPqmChmSvOO+L6yZ4rrNU5lzQiQOhIi2T qMpMjot6L7wkOuKbiVhGUMhNV/UMfdLS6oPJx+LFY6 q9sdgiX3/rPpiY0ww89QeZT3tSOEoZX6/pbtq0vTSvBr093MecQdzRv9EIIGvULjmqtKTT/NIKj+USwR RCm0DBbN4hOI3FBJ4P8Jput9DeRbVpCT3K3OuA0uSAl+HvBNHPjkf6GOpj4vYpeIjZX4tOG7hAcVB0GI cD/3CLSnjDuFADzvV4TGdgbbucuMcm3TrWnnB9CTIY hzsqX4dKp+jROJmWNoS064GUhQAwXIHfBXRFg6d7TZ/FTNnt1cD9SuD9XfjpvBlYogXRPQBHNxsb7bnI jVjD19RyOS9xKBQkOGlDl5suwKkl0pTHfmox+biPa1WNidp2EJr4KUccwfvEkWjAVEcCrAPRiUFjMTyw U21eoARPVn2HWJwn1+JEFWusMlkZF+cS/iIAyVqNPS FsjElaRLfNjj98suZY0aKm67pgv7lmrtTj3CkimuLeS4ygfuEG+sFC/ERZeY/tM88JKahID0mJqNBWrP ciF4/iYlrBpjBFEHncGDV2YKKJmrcj5IrPEBscM/olKo1F8XkkJVdaZo+7IV0BYavF4FBspYZGwEXy3u u38Hwzp7zA9gqCmHs1jUHTwLZIaCw0SBPUdR+lBDhs KMs/yoF3AgfVyX1l9W1cwj0wO/FAsxC81SEAxbzqK+S3w6TXC1br7Kc5Nn4WN+LbgzM4tHFswHy4wzK/ SuwihXHsF15JB7gqcmYY/ZNeYHb1JMO9u01N0gdLLK09vfLKl/ECViZ24Fxw0sluD+p9qB/LT4k+d7pq Jh7/kWaHWMuUiohAQLv77fgNcBhxFmx1RzdAVl/Ben vl8U+FmCtuYPPyvpPG7Bw6cjvMa0lF25Qqih6bkiV2UVqPRszg0clHO9/3GbFxwWWvtM6tHZVix5362p /td2JeH2q93lnrYq1Bo+Sxp617B8QB6eI8vP6l0mNS2i7TD1kL3AYOHV/PqaZEHB53pL4V9pHLoJ+Kfs 1UPDzUePB2jrVNxbv2oQhQZ2urrzb2revEMhaIUOWt 8HPNUUanvi1qUYopP2Tn6udCSXb0NRRmINHdeErkSgF2jxS+gzwU1FKYGwyStzuYjbldDDv7joHOhtuV l0yGcY9AcFfF4qel0a5kLE+tXTJlz8kzrgAltRXeR3fZQKTWkWeVzoqwkgk9usH9WG889WNYQ2laianC XrSdlS6rW6FyoKq8yqnfKep8U62krjw0ydERsLReaO DifLvsNV2TXNWY6QeNvsXPKTRUlnAlyJLXoCskyokDo7N8DyIz2RfWSnRD+5Yi2T14mWabOFeKZpDZK4 LcueEeJuZvwvJZyWHxiCnqZsNjchwBH84KA3HYI5pLVaL29Xfq18w5INIKEi4IFs1Jy3ZCiKTucNVSKz ROsMPKB2mbxmHKW7bML+WpVTLm3NmnlJsJXiXXC5mz njpSf8qlJDJaV1QJ26BQFptkMAPKX89S9Q3L2gPB+I4KwzkM+ULpC3TjC5D/cA0I5DI0Aa1grP76BJxO EshiHGl42PViSS+k33Z9L15SsONmnG3pvmmm8AJEweY8VMPzL15yDx+2oiCqNtX9liGoFJHxVT5JVUbl Co/m0vOgcnMIVntxWUu8Dt9QrjVqxLwcuIjE5ktsFE FpT9TN/9JRLvDbFM0MJswRQu+lBpH+iYXHcomF/uyFsaZ/SwMhPCadB1y4iisi5as4Jl7KO2/lCuC/Ef jOorzHYh++HdE22SgMhT10FTsuv9YYIQj9TVR59C0nxHvzzCZ424QEhl97NWi5QprHNTUIvvslt/2ff/ +Uj9ayP2N+/X//+V//+Z//+59//79//uPf/hv0V6mQ f/77X+eKy0n//3+dGy6d/uVnJNCf/njzf+rjSw/kj5O/TlqQLyg/qP2Klg6EH01QYlAMlH2w90e0H/7O dCA/AQ4woxva8jLDF34wLcedHZ4a+nvTkDORj/4K+klDliC83J+tt8KoMcm7qMlc//v2D3qVBgN36V9u I9O//MSK/umFvyPhTP/a5wst8jo/P5aY1q1/+jtXlh ft9ET+VA750fRea804xVtmXxyeeTRHO/ksGAV3ph+ZduT/+za4ldvoRCtdGiv7K0xe/fzB7qsyhX3/Cz 649YajJa4kt2DAxr9bnJ4un4t7e35UR51z8/n5L8wo2puOlC32kzs+34X5rN+VwW69ON/Sv/qAQkiv2K TT2umJ/TWf3GvwT5+10r/3qLWKmB3fujKrU0jo0m4/ q+8ov1K1fNo4iTul/kccakg7bcd9/c0y9iF/aIzauPiRg2DoM/rT2ZeyA/S2VtfihMgr6mJioiiUYnwo 0eNvG8/dLd/RX0d//zL9BfaNJyidmUaRe+W3EyCro7z2Z25oLeS/+rtGRST/y85N60jqslD//mp+mz/V TUxujO5/jlPlSf/xj0581T0q+W3+1Dbx/MZ/WpvEyD b/+go27q74j3tqWE+V7U/Omds/je0+96ew/ZeKHw78sxyvl4OX+sxksuf9ja2F//CZY92tN20d1/rPL8 VLKInn1Kszty/r71cyf/49fqbTL952+lngt1fm8+/I7/1hkp2fS917ph5YaegL+99W7Jks2b/f+8Z83q O/y364hFHu8U0x7kzVuR1h19X+38hFfGyhKQ289sM5 lPf+b+8JRq8yjRq48zyLY3hAGy27Ow/JKOLh7010jY7ye5rnW9C/3n/5yQ6w41ol3yVR7t32ridmp6/l qUfYyOvz7H37sF5egB/lAMIErml7GkEDJ+hXkvrVrjTyF/IX8lu/EuhXUvpVyj//3y/T5/970ygfkBPI 69sgcejdC1T+0a/ml+nx/qfnAsjLl/d/PNc/Xnp2e4 5+eeOc8xSgntto0J/3TN+Ai9BctHulO46g9xU10bW4oykN/AqUa61F+QP56G/wWvzs3avVE7DzzFY+pC MZWY0zcmyexDsfmDI4xPummP+0JyAf/D35DeDS+rvQ34X+qt718XU0fFM+Pj1KUr+jR2w52dTN/arKKP QVR94IZ+93Znn/nG673whU3tpJsl+Fd38o8LB8+Ue/ uvnjQ/rppecOR+wI0vqAa15jWiRH/VX0V/ILidyn8M9ok5x4bbRbTYCTmj8+X4r3e/EgEjP7cdS+pJEv GALINA+Qg+/Y0P3s5vAu4BfCM+IXruCcTbdYIYH84T1eQktBJ/8+hUremo99rl+XD2mUx/eb+pIo1Q7mBW/1 yhXtwXrleL+O/oiQwbL5K/0l9dZDr5px+O75E3i/gf 4G+obkcuy4IhrLKI4qE+838H4D/S1W23O7L+tz4P0G+oyIc9VSd/1L2i5n1HD+76/l7K/Lb/yPNubzxn snpiP7gdgi2+xXY596pB1r70yromi/o43+jpeXXjwaxgP28/vd/N50mik4/wogQyZj57haeTs3q2/1ip eeKD+Rv1B+4bmK5/m3Ogsbcm3lieK16b1lZfRBgeiA tcc/dyp+Ea4U4w8m/qoKLx35j4Asf1EK+soc/ignyM8ok+Z0dIqn1Jvgl/meUa688dgVc8rSOmgHbt68 hIHC9iy5IPc/5YfeeXk63Kh2K044yVmm255rS1/KfPk6P/WrmfkD+QP5vT+xrG8CekK/Mx5pslV/v99Z +lXK7/y3boFGDm6apRJsRbr0/sowXlj9Zw4aA083ig WIhjXO0eOMWLyCVdA7kH5LHL0aW/xCezVY5mzsk03TgUayss+UdXN/qZX0cdMsg5iLMxM5Ohr2v30bt0 a9Qmm3Ao9+81KWxCiLl5fyG95nbSq/kL+Qr5CD/y7mH747J5Svs98J/T5PLf1ntJv/qbKJg9571dj5w7 fb/roW6rh5r/sin769Un0sfrebvMNbgBr/+qv57R/9 yr6s++dzNg3zl28SwY/966/xiuS9R0+6v/6mveJceDg/tF/86Noa4n/28DP202/gz0G71kMVntz676MS 2FqF3qP//O57maop2VrHx3Uyt7ySYstkR11++tXLn7/0hWOGe6WVwk86aV0nX/9vt1uSphWAJ+ilk/71 C44W27kJU3XYXU/3O5D066wmk6yp7nA9/ncavl/v84 Xpvf+n7qw62PtExi/K+Jw9e3qaTY1cj+9p5swCR7R5ln2/u23SO68mp1OaUX/1ygP5G/L20yd1Ek/yMZ +QyjX7b5C/wiHsM1J+Vs0tm07Igw3VOml0BSR2eT/R+/5fhxPKUgpN7O+Ub/7swhH36TlMedy+OaFfzS 3Ih74B/IlBt9o5xxkCEzb4P0+e0K/kot6aWb+a2yEn iL6xu7axrP62atsa47viM+sbyG/7mH6fN4/Sgoh3kZ+Rv5C/kN/941K9PaDgftpWu4E1mBF1r9mT7l+u o0T34zwA3RABDdHluz2B0Jc3+81XeN9Glu0fC/Wryl/I7/3gGq0/c2LHyqdt+9WG14D2EmCI8VaU4/2m dbKU7xQCl+cl6K/g/Qrer+K9Zi0maE+tzF9P/1ypX1 W+Sp46bC5F84kI+f4yxaw8WwC2KKXr/coq3c+Rachel+oYp91c3v31D4mE4WevF+1fnJoVqbap4xFW2USed zm8+y7bnbTl7SnT0ahSk+038iL69h5y2oa39Pmciy8MGY9l7X+gLRee22G4kotdnz5i8NlpTVkk1ldHV /+rr832j3NbXl/y1E+9O99v03O2/Pfpfh+Ff1N+1Xl o7+K+bved66Ta8ej4Q/xK6qjWfK+gQDxVsNhihP2kgWNghSB+TxFCH0M/JE231Ock63hXg7dzz+G+Zz2 m6dz8Vl35nB376Eda8l3zniIKv8ksO7rLatdTR/MthMhmQ4Gz8Cn0/Pu5Xi/uobaNP5q08kzHmqVY3f0 ivMt4Kxxpf5w6xGxCf01fGl74mNrNwcl3C3T5fyP/w c7c8FrmDU2e6O7O3w/bgW56OqE9v3Mw/3GLrxgpy8rwO6WkL/6G5l/+kxpZE1s59K8Y+pXlZ/2jZNO+9 VNt/zUr7zS+tqQ+vUFUlafu290aqkfNy0qPrvA8e28M2MtcJ8a0ee/llrBqsYov51G/arS+B/ttm+s3f 4ba/f/SFO/jgn6oafQ9l5N/gyT3l6xdo3t8J/XK/16 fdZvIb/SK8L6Dq+8q7ydSm3wRp/231CcD+rX+oZ+osRW0puay6+g8L/N8q9xG946xc2yHn/89kfSISif +7DSQ68lv5TMz8itid+WTEO+obxDjkN+ID+Qv5GP/rq8A02iZCt8kXxHvXQ29AlBV7bct5D+obyivKK8 oTzerzja0/3mzvtpv35N7N7D+jxU4X+ls+2Txy2//C uOV/31sGuta6h0Chnuvo+0NFw9i4++tfCKB4oF49YomkuQI97x62y7M780vgYrD7A+y48vn/hxo4vor+ Wo9vc4yRS2e/8imq4Tr26+Naqdv/5+J7cVui0Wlmx/I9rI2B0+jsNPvyr/iuOAf+se/eo7/irH/f4cwv /Sx3/j+H4c5/tfmOST/fP6yBdqevpWug27Kod/ym9n 4f2u3v/r8s2MFom+oHyf7+tq+4bC/1c5q4j41zrUl20gU+95w1apf1C3/8p5TDaJkcTxjAuQifIG951N Gg45FXhARwOby5wlPcNTW5T8W9pZ5zvf9G+lduriDUk3Kq6wu4X9qdd9sR+N3byZdlEyNasQ/N4fqbU+ qRaQHyjf+cUFp7BIi2rt+7+T+lWVwf/OXkV3r8D+UX 5Cfu+P9DtdEGHu6h6/j97/X/U+X1Dv/076DN0vg7E2/r+pX+X6k/rV+jgc1wxo8N2l1xa3oC36Dx+i/I S8pcFFlXB+Id+gilVjY9E+w2pwY3mY3v+Yu3a18riEkv2+pk119bguR0Yang3FEw2Z/tcoTZo3Ks4q5c K/G/1N/eqmkY/+pn6Va/zbcMGIpdg2zLO+ddQz1ptd c9kaAxpTzIz30QXFG89biST/IaOwXtq637/+444L/Whq1rA8fymOqeDn5jt1jUHuQ1w6r/2co0so6C3h u6QfOFsNZx9pcf/ySr/xt9H+o1u5rmberT/2b3Mpa7I7ssUx/j76EIN2/Vraryp/Q/5+995qa66L+1Wl B/QQkvsiak0h9m5dqelj4mptJgn6ZeSD9zUQB/tVpR 7bPG1EyiPr7L57c/EJx9jkWuU38zlr0I+38zdDuh3jbaN/E/4fiM3N0w3hDtCz0bagHiD/12dL+9VZh2 2iv/Bvt4n+yw1k3sk7nwU1b/razNC9ocrC17wxX2dIs2bu6p7YvkP0skCF+Qr5eL/JIQ99RI83f3YP+Y H8jfw+6ocg7juT/K66JjtT/2Ej2G8W/dW+l9XbQ8M+ PxeD9haDQ8kd/Hf1o547yU/F+9VA/ob8/n7y7fb0G7f/S0a8xd6i7OTu5h5j0aW1K8DeujYI5umdRe3r 1lLD+mxYn49+rhn6diybbI1magOhzK2tv3gq4z+f0vAt9sqg4AWp1st69vDlb/Grz87Hx7Vc/xvc6w5r 0m0b3c8zJH91teeQP4z92CpxH5+q/FkonvlHyH2p+c B6FR/yB/LxfqFfGfQrS/5t55p5eh2k7ZtD/unNl9e7cj5e8HlYqXV/7ZMG/yuLQPlA+Y3ybW+03u4jwh vfzHA+dXxyjM8w5/co431bnV7huyR/9kb4p76r8C+hlb3qvBB411pV4tS5AJxH836wee48cy4+V/51fx 3ng/61v5l/gvw+P/Ws34nR49A/Fcsr2UB9tI+9/3XY r/xcrKC4P/zr+xtrL53hdk3+lfdB/OhXmv06+zLg5udGrsQtO/rvO6fU3/vRr9K/wo9+lXdD/GcH0Ovv R7/zWTj34jg/+gFOzUV466+hKVPRHnvrqh/9gcRloe24KWm//hX+069+ENuZ/uVXX/Jxe2hgfj4GI0Wd /eo7tgU/+tZAqGi77vv3sSLqhVU86v7eRMN+VXLSPy trqp7XGs9Dsf/o0v9fl/3hoJ7FIviRi6d0xkKD86Shcyp1v6c7/7zwDgpu65+O80HH+sTttSKrBmt9C/ OE38PBGbs1/0MiRe1V43x+Qr/y0q/OOE+AyEwe5TiH/thj2ug2ak9x4R839n/CmU604TgedrJV7yD7x9 g5HcIH7zhe1XARjfzX/k7PbvkvV/m9X/REj6gGxd+t b7h+yO//kad+4IyHmM3b4/sjT/8pCv59WpKNNuHu/Oq07vff3/dDPfWrynfID+TR4Qun1/1Ktg1HLNAy xUFqA9LsyOnpR/019NfQX+pCBnwSQMsSszKGdE4ARd6DIv7KUY37GgHQUvT4cdg+zd2fgov7384imyu/ 5bkk0u7zrsYq/YV+5Y7+jv1K76zvP3R44Wm+6d76pL sjv/VJ90D+fvqeH/0q7dV+9KvUG/8sRta9iA/3lYSv6lWkuElAm287ZXNUz1vgG+WPfWNVGvKP/lxtUJ A3QUqWm/qb/2azA9Pnlq864lv1vkUek+5x2F/ko07UE3lkrwlbz0k3jtD81b/G+039qsrj/nU52Lt5kD JEFFRY+S3/cnsO820j/PUryo/el5tfL+gKaPxX3V5kZa1 16tI/agp8GBh+RNyJuQvlF/I7/PQ+ZIjJQP0l/Q35j5uOjmKHTno59113P0lA/1N+9VNt/yB/g70t+xX lIc9Nk9N/u0B//ZI+2Kbt93K/UO2EucfwtOyCvX/N8ZG+S3mXvr8QfZ/FsG28m6L/6NI+9VNI7/3vwH7 VchC/aQ8kDiKfgDcHDvuy9M+/79R/maJar71AO3Gzv n6RsB+FYjPEKlfpczZ+/2Y6C/wSnUpDkmoA1NAHQmE+ZhsPazRmOjqIAYP3darrsIr4ZUykg5nV/N59X cDg6drXCsTuz+xer8fq/g8tnKtDIkv6Vao/n0FsBf5xzQj3eS4yN0AqvZgXoKye774a7anO023/db5OP pV/zPe2Iz7B0inU1846x/X9z2wknDdph/lP2p5t8Uj ckx0Ir/4P6B2sS1FyxCTnAYas5d4V3dDl2nAQU9uj0Vu2JcAI3cKtxswkR0T9D/W3m0M9th0dJ6/Cut4 Y9AbdiEW/oQB/6tI/qfqt50J7M5Z5/1RWPtPhgXyA+L90Zx2KAx3ReX7b7YM1ejTR/C1LXX390dT7fFY F7DdiKdK0/MJtZHNHammaoupA5NyaB1VlsN0lv4R9s FkIgby+hw5gnjPuuwuAzh4yMRgQsU9dwimv/vOtCIf/YX/Jesus+iQpM9by3ixA+1Zk882+ECUCYy9Stm9 5+ZVX+11/L8ke/8q/OwlSZcQLbQYog9y/+tKmT/vU38ls++aBex2xv/rdE77f2Gg+UFLoW1sPM8K+yPe wkxhrE3o/SzhBHv/xi855yklmoV44+uv533ueGol2c sb83Gu4+/f75YSU5y5Y8dX3+zgyLgiNJgng8l03Bqu/2R9pf++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+/Jmuih5r/PF/bX+/66jW8ww557 w/1qn87s38/w4fm94foeO/vr84Vd/e8CtesZdo/7Hu3/vEef7+/R3+8eA/h2Fz2rH6xgJs/Sbb06bzge GL0bW9NseV/I7/XUbvtJy5V/I5C/kd/nKVv6+93S3+ +WgfyB/OKrlBk2sfhQ/SSrgBcIG4yj/h5BzMa0E9yT+sYWhxxH+d6nfQtYkoqUM5c+seF/tWfv9/fs/c EGjpPtL46sDbp11PQ+tWfvF/Zs/SySYl2jo/dHG/Jd7ec3jq77/92pX51/9J6B/I38Pu/eqV9l/vqQ3/ aNvXp/tFfvF/bq/eBerW/pzD6Oqf7Y8scNK+Qr8g3P RX8X+rsc+AT94O0Spyu8m+vr1ruy4g/kD+20IF+Qj/3Od3qBh0vduv7U64Lv8up3jY/7UcRIuj8BkyBu O/Ca1L437Kx4vLK/O9++91/qzogla4IIj2g4+rbF4Xc7d913PLVI+RPlJ+UbyiWQyQh7s+0b29q+sQ39 zfPBykd/83xQMr/2830r35kB4w5L32Isog/YsF/tPB +zTm0d0A05l/rVTSN/Ib/zB0sE1fJlYykYnFy+7/e3t/68U7/Kue0b+H5s2KY8yK63J0kirS/3yv0HuS U5ozwthDE/qM0ENhOgnRn1B//2Hb3f3+Eoj/5G+mMp3WDFZd/2vds+ucu/DhCC149+wr99b/W1Y7OPgg F39u83v1Id8R95ozU9fc1j5w5iWC5102V6MsBus6c4 [file] KomTTh0Uf0FppwZ0acWaUsy7NDC2HjRlUI6V ID Date Data Source [id number] 02/06/2020 07:00:20 PM EDT [facility] [place] [facility] [address] [id number]# Surgical Pathology ReportAccession #:[id number]) ReceivedA: Contents of femoral artery rightClinical Diagnosis and HistoryClaudication DIAGNOSISCONTENTS OF FEMORAL ARTERY, RIGHT: ATHEROSCLEROTIC PLAQUE (GROSS DIAGNOSIS). Gross DescriptionReceived in formalin, the specimen is labeled "contents of femoral arteryright" consists of fragmented white-johnson calcified atherosclerotic plaquemeasuring approximately 3-4 cm in aggregate. No sections submitted. Grossonly. jglgmm/gmm Reported: 02/06/2020Electronically Signed Out By Serjio Sandhu M.D. [facility] [place], [place] [address]tbkBgveshsic component performed at [facility] [employer] [facility], Histopathology, [address] [place] [address], [phone].Reported at [facility], [address] [place] [address], [phone]. This report may includeimmunohistochemical or in-situ hybridization results. Testing wasdeveloped and the performance characteristics determined by [facility] [employer] [facility] as required by CLIA '88. The FDA hasdetermined that approval for specific use is not necessary for clinicaluse. The quality of Hematoxylin and Eosin stains and as applicable, forall immunohistochemical and/or special stains, including positive andnegative controls, were reviewed and considered appropriate.ICD codes I70.90CPT codesA: 44966H Name Value Range Interpretation Code Description Data Mary rce(s) Supporting Document(s) ID Date Data Source [id number] 02/05/2020 08:43:15 AM EDT [facility] Name Value Range Interpretation Code Description Data Mary rce(s) Supporting Document(s) POC NOVA GLU 284 mg/dL (70-99) H [facility] DONNA PERFORMED BY [facility] CLINICAL STAFF ID Date Data Source [id number] 02/11/2020 12:20:01 PM EDT [facility] SPECIMEN DESCRIPTION PERIPHERAL 2SPECIAL REQUESTS NONECULTURE RESULTS NO GROWTH 6 DAYSREPORT STATUS FINAL 02/11/2020 Name Value Range Interpretation Code Description Data Mary rce(s) Supporting Document(s) ID Date Data Source [id number] 02/11/2020 12:20:01 PM EDT [facility] SPECIMEN DESCRIPTION PERIPHERAL 1SPECIAL REQUESTS NONECULTURE RESULTS NO GROWTH 6 DAYSREPORT STATUS FINAL 02/11/2020 Name Value Range Interpretation Code Description Data Mary rce(s) Supporting Document(s) ID Date Data Source [id number] 02/05/2020 08:59:02 AM EDT [facility] [place] [facility] SPEC EXP DATE 02/08/2020PATI ENT ABO/Rh B NEGATIVEANTIBODY SCREEN NEGATIVETESTING SITE PERFORMED AT [address] [place], [place] [id number] BANK COMMENT BLOOD TYPE CONFIRMED. Name Value Range Interpretation Code Description Data Mary rce(s) Supporting Document(s) TYPE AND SCREEN [facility] [place] [facility] ID Date Data Source [id number] 02/05/2020 08:42:49 AM EDT [facility] [place] [facility] Name Value Range Interpretation Code Description Data Mary rce(s) Supporting Document(s) PT 10.3 s (9.2-11.9) [facility] [place] [facility] INR 0.98 [facility] [place] [facility] SUGGESTED THERAPEUTIC RANGES USING INR F ORSTABILIZED ANTICOAGULATED PATIENTS:STANDARD DOSE THERAPY INR 2.0-3.0 DVT, PE, PREVENT DVT OR EMBOLISMHIGH DOSE THERAPY INR 2.5-3.5 PREVENT EMBOLISM FROM MECHANICAL HEART VALVE ID Date Data Source [id number] 02/05/2020 08:42:49 AM EDT [facility] [place] [facility] Name Value Range Interpretation Code Description Data Mary rce(s) Supporting Document(s) APTT 33.5 s (22.0-34.3) [facility] [place] [facility] ID Date Data Source [id number] 02/05/2020 08:03:38 AM EDT [facility] [place] [facility] Name Value Range Interpretation Code Description Data Mary rce(s) Supporting Document(s) SODIUM 137 mmol/L (136-145) [facility] [place] [facility] POTASSIUM 4.0 mmol/L (3.6-5.2) [facility] [place] [facility] CHLORIDE 103 mmol/L (100-108) [facility] [place] [facility] CO2 25 mmol/L (22-31) [facility] [place] [facility] ANION GAP 9 mmol/L (7-16) [facility] [place] [facility] UREA NITROGEN 29 mg/dL (7-24) H [facility] [place] [facility] CREATININE 1.27 mg/dL (0.60-1.00) H [facility] [place] [facility] BUN/CREAT RATIO 22.8 RATIO (10.0-20.0) [facility] GLUCOSE 274 mg/dL (70-99) H [facility] [place] [facility] CALCIUM 9.1 mg/dL (8.4-10.2) [facility] [place] [facility] TOTAL PROTEIN 7.2 g/dL (6.4-8.2) [facility] [place] [facility] ALBUMIN 3.3 g/dL (3.5-4.6) L [facility] [place] [facility] GLOBULIN 3.9 g/dL (2.7-4.3) [facility] [place] [facility] ALB/GLOB RATIO 0.8 RATIO [facility] [place] [facility] ALKALINE PHOSPHATASE 162 U/L (45-117) H [facility] BILIRUBIN,TOTAL 0.3 mg/dL (0.0-1.0) [facility] [place] [facility] PLEASE NOTE:Total bilirubin results may be falselyelevated in patients taking Eltrombopag. AST (SGOT) 13 U/L (11-39) [facility] [place] [facility] ALT (SGPT) 15 U/L (12-78) [facility] [place] [facility] GFR 44 ml/min/1.73m2 (>59) L [facility] [place] [facility] GFR ( AMER) 53 ml/min/1.73m2 (>59) L [facility] [place] [facility] GFR INTERPRETATION [facility] --NORMAL KIDNEY FUNCTION OR MILD DISEASE - GFR >OR= 60CHRONIC KIDNEY DISEASE - GFR 15 - 59RENAL FAILURE - GFR <15 Est. GFR calculation based on the MDRDstudy equation, which assumes a steadystate for creatinine. Est. GFR should notbe used for medication dosing. ID Date Data Source [id number] 02/05/2020 07:41:23 AM EDT [facility] [place] [facility] Name Value Range Interpretation Code Description Data Mary rce(s) Supporting Document(s) WBC 13.2 10*3/uL (4.1-11.0) H [facility] [place] [facility] RBC 5.42 10*6/uL (4.00-5.40) H [facility] [place] [facility] HGB 14.5 g/dL (12.0-16.0) [facility] [place] [facility] HCT 43.7 % (36.0-47.0) [facility] [place] [facility] MCV 80.6 fL (80.0-95.0) [facility] [place] [facility] MCH 26.8 pg (27.0-32.0) L [facility] [place] [facility] MCHC 33.3 g/dL (32.0-36.0) [facility] [place] [facility] RDW 16.1 % (10.5-14.5) H [facility] [place] [facility] PLT 306 10*3/uL (150-450) [facility] [place] [facility] MPV 8.5 fL (7.1-10.7) [facility] [place] [facility] ID Date Data Source [id number] 01/30/2020 01:22:46 PM EDT [facility]FORMATIONPatient MRN Name Date of Age Gend*PT [id number] Tatianna Soto 1965 54 years F ---PT Location Admission Date/Time Visit ID Attending Provider --- --- --- --- EPI ID CSN Admitting Provider [id number] ---[facility] Cardiac [address] [place] [id number]: F: OFFICE CONSULTATIONDate: 01/30/20Patient: Tatianna SotoDOB: [id number] Physician: No ref. 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; Surgeon: Saba Smith MD; [facility]; Service: Cardiac/Open Heart; Laterality: N/A; FOOT SURGERY GASTROSTOMY W/ FEEDING TUBE 2014 LEG SURGERY PEG W/TRACHEOSTOMY PLACEMENT 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 > 1000 in early 2015 TRACHEOSTOMY 2014 TUBAL LIGATIONFAMILY HISTORY:Family StatusRelation Name Status Mother [...] file Gets together: Not on file Attends sabianist service: Not on file Active member of [...] Name Value Range Interpretation Code Description Data Mary rce(s) Supporting Document(s) ID Date Data Source [id number] 01/05/2020 12:14:00 PM EDT [facility] ([facility]) Name Value Range Interpretation Code Description Data Mary rce(s) Supporting Document(s) Gram Stain Laboratory test result Normal (applies to non-n umeric results) [facility] ([facility]) NO CELLS SEEN NO ORGANISMS SEEN Wound Culture Laboratory test result Normal (applies t o non-numeric results) [facility] ([facility]) <content>FULL REPORT IN LAB NOTES (eCW [...] 8 S</content>
<content></content> ID Date Data Source [id number] 12/30/2019 11:11:00 AM EDT [facility] Name Value Range Interpretation Code Description Data Mary rce(s) Supporting Document(s) C reactive protein [Mass/volume] in Serum or Plasma by High sensitivity method 6.87 mg/dL 0.00-0.30 Above high normal [facility] ([facility]) <content>note:<nlbl:[email or web address]> </content>
<content></content> ID Date Data Source [id number] 12/30/2019 11:11:00 AM EDT [facility] Name Value Range Interpretation Code Description Data Mary rce(s) Supporting Document(s) Glucose, Fasting 779 mg/dL 70-100 Above upper panic limits [facility] Blood Urea Nitrogen 28 mg/dL 7-18 Above high normal [facility] ([facility]) Creatinine For GFR 1.16 mg/dL 0.55-1.30 Normal (applies to non -numeric results) [facility] ([facility]) Glomerular Filtration Rate 52.2 Normal (applies to n on-numeric results) [facility] ([facility]) <content>Units are mL/min/1.73 m2</content>
<content></content>
<content>Chronic Kidney Disease Staging per NKF:</content>
<content></content>
<content>Stage I & II GFR >=60 Normal to Mildly Decreased</content>
<content>Stage III GFR 30- 59 Moderately Decreased</content>
<content>Stage IV GFR 15-29 Severely Decreased</content>
<content>Stage V GFR <15 Very Little GFR Left</content>
<content>ESRD GFR <15 on RAT EXTERMINATOR</content>
<content></content> Sodium Level 126 meq/L 136-145 [facility] ([facility]) Chloride Level 95 meq/L 98-107 Below low normal [facility] NT ([facility]) Carbon Dioxide Level 25 meq/L 21-32 Normal (applies to non-num denita results) [facility] ([facility]) Potassium Serum 6.5 meq/L 3.5-5.1 Above upper panic limits [facility] This specimen has an elevated potassium level but there is NO visible hemolysis noted. Anion Gap 6 meq/L 8-16 Below low normal [facility] ( [facility]) Ast/Sgot 16 U/L 7-37 Normal (applies to non-numeric resul ts) [facility] ([facility]) Calcium Level 9.5 mg/dL 8.5-10.1 Normal (applies to non-numeric re sults) [facility]) Bilirubin,Total 0.2 mg/dL 0.2-1.0 Normal (applies to non-numeric results) [facility] ([facility]) Alt/SGPT 16 U/L 12-78 Normal (applies to non-numeric resul ts) [facility] ([facility]) Alkaline Phosphatase 188 U/L 45-117 Above high normal [facility]) Total Protein 7.5 GM/DL 6.4-8.2 Normal (applies to non-numeric re sults) [facility] ([facility]) Albumin/Globulin Ratio 0.6 1.2-2.2 Below low normal [facility]) Albumin 2.9 GM/DL 3.2-5.2 Below low normal [facility] ( [facility]) ID Date Data Source [id number] 12/30/2019 11:11:00 AM EDT [facility] ([facility]) Name Value Range Interpretation Code Description Data Mayr rce(s) Supporting Document(s) Erythrocyte sedimentation rate by Westergren method 32 mm/hr 0-30 Above high normal [facility] ([facility]) Lactate [Mass/volume] in Serum or Plasma 2.4 mmol/L 0.4-2.0 Above upper panic limits [facility] ([facility]) <content>note:<nlbl:demographic_changed> </content>
<content>Y/N query for Sepsis Lactate Rule: Y</content>
<content></content> ID Date Data Source [id number] 12/30/2019 11:11:00 AM EDT [facility] ([facility]) Name Value Range Interpretation Code Description Data Mary rce(s) Supporting Document(s) White Blood Count 12.6 10 4.0-10.0 Above high normal [facility] ([facility]) Hematocrit 45.4 % 36.0-47.0 Normal (applies to non-numeric resul ts) [facility] ([facility]) Red Blood Count 5.21 10 4.00-5.40 Normal (applies to non-numeric results) [facility] ([facility]) Hemoglobin 13.9 g/dL 12.0-15.5 Normal (applies to non-numeric resul ts) [facility] ([facility]) Mean Corpuscular HGB Conc 30.6 g/dL 32.0-36.5 Below low normal [facility] ([facility]) Mean Corpuscular Hemoglobin 26.7 pg 27.0-33.0 Below low normal [facility] ([facility]) Mean Corpuscular Volume 87.1 fl 80.0-96.0 Normal ( applies to non-numeric results) [facility] ([facility]) Red Cell Distribution Width 14.4 % 11.5-14.5 Norm al (applies to non-numeric results) [facility] ([facility]) Neutrophils % 85.1 % 36.0-66.0 Above high normal [facility] ([facility]) Platelet Count, Automated 375 10 150-450 Normal (applies to non-numeric results) [facility] ([facility]) [place] % 3.5 % 0.0-5.0 Normal (applies to non-numeric resul ts) [facility] ([facility]) Eos % 0.3 % 0.0-3.0 Normal (applies to non-numeric resul ts) [facility] ([facility]) Lymph % 10.2 % 24.0-44.0 Below low normal [facility] ( [facility]) Baso % 0.6 % 0.0-1.0 Normal (applies to non-numeric resul ts) [facility] ([facility]) Nucleated Red Blood Cell % 0.0 % 0-0 Normal (applies to n on-numeric results) [facility] ([facility]) Immature Granulocyte % 0.3 % 0-3.0 Normal (applies to non-n umeric results) [facility] ([facility]) Neutrophils # 10.7 10 1.5-8.5 Above high normal [facility] ([facility]) Eos # 0.0 10 0.0-0.5 Normal (applies to non-numeric resul ts) [facility] ([facility]) Lymph # 1.3 10 1.5-5.0 Below low normal [facility] ( [facility]) [place] # 0.4 10 0.0-0.8 Normal (applies to non-numeric resul ts) [facility] ([facility]) Baso # 0.1 10 0.0-0.2 Normal (applies to non-numeric resul ts) [facility] ([facility]) ID Date Data Source [id number] 12/30/2019 11:11:00 AM EDT [facility] ([facility]) Name Value Range Interpretation Code Description Data Mary rce(s) Supporting Document(s) Venous Partial Pressure Co2 50.0 mmHg 38.0-50.0 Norm al (applies to non-numeric results) [facility] ([facility]) Venous PH 7.328 units 7.330-7.430 Below low normal [facility] ([facility]) Venous Total Co2 27.2 meq/L 24.0-28.0 Normal (applies to non-numeric results) [facility] ([facility]) Venous Partial Pressure O2 55.8 mmHg 30.0-50.0 Above high normal [facility] ([facility]) Venous Hco3 25.7 meq/L 23.0-27.0 Normal (applies to non-numeric resu lts) [facility] ([facility]) Venous Standard Hco3 23.5 meq/L Normal (applies to non-num denita results) [facility] ([facility]) Venous O2 Saturation 88.1 % 60.0-80.0 Above high normal [facility] ([facility]) Venous Base Excess -1.0 Normal (applies to non-numer ic results) [facility] ([facility]) ID Date Data Source [id number] 12/29/2019 11:00:00 AM EDT [facility] Name Value Range Interpretation Code Description Data Mary rce(s) Supporting Document(s) SARS coronavirus 2 RNA [facility] This lab was ordered by [facility] and reported by [facility]. ID Date Data Source [id number] 12/28/2019 09:54:00 AM EDT [facility] ([facility]) Name Value Range Interpretation Code Description Data Mary rce(s) Supporting Document(s) Laboratory test finding (navigational concept) 41.0 % 3 8.0-51.0 Normal (applies to non-numeric results) [facility] ([facility]) Laboratory test finding (navigational concept) 135 meq/L 1 36-145 Below low normal [facility] ([facility]) Laboratory test finding (navigational concept) 4.3 meq/L 3 .5-5.1 Normal (applies to non-numeric results) [facility] ([facility]) Laboratory test finding (navigational concept) 206 mg/dL 7 0-105 Above high normal [facility] ([facility]) Laboratory test finding (navigational concept) 25.0 MM/L 2 3.0-27.0 Normal (applies to non-numeric results) [facility] ([facility]) Laboratory test finding (navigational concept) 4.8 mg/dL 4 .5-5.3 Normal (applies to non-numeric results) [facility] ([facility]) Laboratory test finding (navigational concept) 38 mg/dL 8-26 Above high normal [facility] ([facility]) Laboratory test finding (navigational concept) 100 meq/L 9 8-109 Normal (applies to non-numeric results) [facility] ([facility]) Laboratory test finding (navigational concept) 1.4 mg/dL 0 .6-1.3 Above high normal [facility] ([facility]) ID Date Data Source [id number] 12/27/2019 01:50:00 PM EDT [facility] ([facility] Name Value Range Interpretation Code Description Data Mary rce(s) Supporting Document(s) Glucose, Fasting 71 mg/dL 70-100 [facility] ([facility] Blood Urea Nitrogen 36 mg/dL 7-18 Above high normal [facility] ([facility] Glomerular Filtration Rate 30.1 [facility] ([facility] <content>Units are mL/min/1.73 m2</content>
<content></content>
<content>Chronic Kidney Disease Staging per NKF:</content>
<content></content>
<content>Stage I & II GFR >=60 Normal to Mildly Decreased</content>
<content>Stage III GFR 30- 59 Moderately Decreased</content>
<content>Stage IV GFR 15-29 Severely Decreased</content>
<content>Stage V GFR <15 Very Little GFR Left</content>
<content>ESRD GFR <15 on RAT EXTERMINATOR</content>
<content></content> Creatinine For GFR 1.87 mg/dL 0.55-1.30 Above high normal [facility] ([facility] Chloride Level 100 meq/L 98-107 [facility] ([facility] Sodium Level 133 meq/L 136-145 [facility] ([facility] Potassium Serum 4.3 meq/L 3.5-5.1 [facility] Anion Gap 8 meq/L 8-16 [facility] Carbon Dioxide Level 25 meq/L 21-32 [facility] Calcium Level 8.7 mg/dL 8.5-10.1 [facility] ([facility] ID Date Data Source [id number] 12/27/2019 01:50:00 PM EDT [facility] ([facility] Name Value Range Interpretation Code Description Data Mary rce(s) Supporting Document(s) White Blood Count 13.7 10 4.0-10.0 Above high normal [facility] ([facility] Red Blood Count 5.17 10 4.00-5.40 [facility] ([facility] Hemoglobin 13.9 g/dL 12.0-15.5 [facility] Mean Corpuscular Volume 84.1 fl 80.0-96.0 M [facility] ([facility] Mean Corpuscular Hemoglobin 26.9 pg 27.0-33.0 [facility] ([facility] Hematocrit 43.5 % 36.0-47.0 [facility] Mean Corpuscular HGB Conc 32.0 g/dL 32.0-36.5 [facility] ([facility] Red Cell Distribution Width 13.9 % 11.5-14.5 [facility] ([facility] Nucleated Red Blood Cell % 0.0 % 0-0 [facility] ([facility] Platelet Count, Automated 337 10 150-450 [facility] ([facility] ID Date Data Source [id number] 12/27/2019 01:50:00 PM EDT [facility] ([facility]) Name Value Range Interpretation Code Description Data Mary rce(s) Supporting Document(s) White Blood Count 13.7 10 4.0-10.0 Above high normal [facility] ([facility]) Hematocrit 43.5 % 36.0-47.0 Normal (applies to non-numeric resul ts) [facility] ([facility]) Hemoglobin 13.9 g/dL 12.0-15.5 Normal (applies to non-numeric resul ts) [facility] ([facility]) Mean Corpuscular Volume 84.1 fl 80.0-96.0 Normal ( applies to non-numeric results) [facility] ([facility]) Red Blood Count 5.17 10 4.00-5.40 Normal (applies to non-numeric results) [facility] ([facility]) Mean Corpuscular HGB Conc 32.0 g/dL 32.0-36.5 Normal (applies to non-numeric results) [facility] ([facility]) Red Cell Distribution Width 13.9 % 11.5-14.5 Norm al (applies to non-numeric results) [facility] ([facility]) Mean Corpuscular Hemoglobin 26.9 pg 27.0-33.0 Below low normal [facility] ([facility]) Platelet Count, Automated 337 10 150-450 Normal (applies to non-numeric results) [facility] ([facility]) Nucleated Red Blood Cell % 0.0 % 0-0 Normal (applies to n on-numeric results) [facility] ([facility]) ID Date Data Source [id number] 12/27/2019 01:50:00 PM EDT [facility] ([facility]) Name Value Range Interpretation Code Description Data Mary rce(s) Supporting Document(s) Blood Urea Nitrogen 36 mg/dL 7-18 Above high normal [facility] ([facility]) Creatinine For GFR 1.87 mg/dL 0.55-1.30 Above high normal [facility] ([facility]) Glucose, Fasting 71 mg/dL 70-100 Normal (applies to non-numeric results) [facility] ([facility]) Glomerular Filtration Rate 30.1 Below low normal [facility] ([facility]) <content>Units are mL/min/1.73 m2</content>
<content></content>
<content>Chronic Kidney Disease Staging per NKF:</content>
<content></content>
<content>Stage I & II GFR >=60 Normal to Mildly Decreased</content>
<content>Stage III GFR 30- 59 Moderately Decreased</content>
<content>Stage IV GFR 15-29 Severely Decreased</content>
<content>Stage V GFR <15 Very Little GFR Left</content>
<content>ESRD GFR <15 on RAT EXTERMINATOR</content>
<content></content> Sodium Level 133 meq/L 136-145 Below low normal [facility] ([facility]) Potassium Serum 4.3 meq/L 3.5-5.1 Normal (applies to non-numeric results) [facility] ([facility]) Anion Gap 8 meq/L 8-16 Normal (applies to non-numeric resul ts) [facility] ([facility]) Chloride Level 100 meq/L 98-107 Normal (applies to non-numeric r esults) [facility] ([facility]) Carbon Dioxide Level 25 meq/L 21-32 Normal (applies to non-num denita results) [facility] ([facility]) Calcium Level 8.7 mg/dL 8.5-10.1 Normal (applies to non-numeric re sults) [facility] ([facility]) ID Date Data Source [id number] 12/27/2019 01:40:00 PM EDT [facility] ([facility]) Name Value Range Interpretation Code Description Data Mary rce(s) Supporting Document(s) Natriuretic peptide.B prohormone N-Terminal [Mass/volu me] in Serum or Plasma 211 pg/mL Above high normal [facility] ([facility]) <content>note:<nlbl:demographic_changed> </content>
<content></content> ID Date Data Source [id number] 12/27/2019 01:40:00 PM EDT [facility] ([facility]) Name Value Range Interpretation Code Description Data Mary rce(s) Supporting Document(s) Malb Urine Siemens 22.2 mg/L Normal (applies to non-numer ic results) [facility] ([facility]) Creatinine, Urine 195.0 mg/dL Normal (applies to non-numer ic results) [facility] ([facility]) Kevyn/Creat Ratio 11.3 MCG/MG 0.0-30.0 Normal (applies to non-numeric results) [facility] ([facility]) THE [employer] STATES THAT MICROALBUMINURIA IS PRESENT IF THE MICROALBUMIN/CREATININE RATIO EXCEEDS 30 MCG/MG. THE THRESHOLD FOR CLINICAL ALBUMINURIA IS REACHED AT 300 MCG/MG. THE CLASSIFICATION OF A PATIENT SHOULD BE BASED UPON AT LEAST 2 OF 3 ABNORMAL RESULTS ON SPECIMENS COLLECTED WITHIN A 3 TO 6 MONTH TIME FRAME. ID Date Data Source [id number] 12/27/2019 01:40:00 PM EDT [facility] ([facility]) Name Value Range Interpretation Code Description Data Mary rce(s) Supporting Document(s) Hemoglobin A1c 9.1 % Normal (applies to non-numeric r esults) [facility] ([facility]) <content>REFERENCE RANGES:</content><br/ ><content></content>
<content><=5.6% NORMAL</content>
<content>5.7-6.4% SUGGESTS IMPAIRED GLUCOSE METABOLISM/PREDIABETIC</content>
<content>>= 6.5% ABNORMAL</content>
<content></content> Estimated Average Glucose 214 mg/dL 60-110 Above high normal [facility] ([facility]) ID Date Data Source [id number] 12/27/2019 01:40:00 PM EDT [facility] ([facility]) Name Value Range Interpretation Code Description Data Mary rce(s) Supporting Document(s) Red Blood Count 5.19 10 4.00-5.40 Normal (applies to non-numeric results) [facility] ([facility]) White Blood Count 13.9 10 4.0-10.0 Above high normal [facility] ([facility]) Hemoglobin 14.0 g/dL 12.0-15.5 Normal (applies to non-numeric resul ts) [facility] ([facility]) Hematocrit 43.7 % 36.0-47.0 Normal (applies to non-numeric resul ts) [facility] ([facility]) Mean Corpuscular Volume 84.2 fl 80.0-96.0 Normal ( applies to non-numeric results) [facility] ([facility]) Mean Corpuscular Hemoglobin 27.0 pg 27.0-33.0 Norm al (applies to non-numeric results) [facility] ([facility]) Red Cell Distribution Width 13.8 % 11.5-14.5 Norm al (applies to non-numeric results) [facility] ([facility]) Mean Corpuscular HGB Conc 32.0 g/dL 32.0-36.5 Normal (applies to non-numeric results) [facility] ([facility]) Platelet Count, Automated 310 10 150-450 Normal (applies to non-numeric results) [facility] ([facility]) Neutrophils % 67.6 % 36.0-66.0 Above high normal [facility] ([facility]) Lymph % 24.0 % 24.0-44.0 Normal (applies to non-numeric resul ts) [facility] ([facility]) Eos % 1.9 % 0.0-3.0 Normal (applies to non-numeric resul ts) [facility] ([facility]) Baso % 0.6 % 0.0-1.0 Normal (applies to non-numeric resul ts) [facility] ([facility]) [place] % 5.1 % 0.0-5.0 Above high normal [facility] ([facility]) Immature Granulocyte % 0.8 % 0-3.0 Normal (applies to non-n umeric results) [facility] ([facility]) Nucleated Red Blood Cell % 0.0 % 0-0 Normal (applies to n on-numeric results) [facility] ([facility]) Neutrophils # 9.4 10 1.5-8.5 Above high normal [facility] ([facility]) [place] # 0.7 10 0.0-0.8 Normal (applies to non-numeric resul ts) [facility] ([facility]) Eos # 0.3 10 0.0-0.5 Normal (applies to non-numeric resul ts) [facility] ([facility]) Lymph # 3.3 10 1.5-5.0 Normal (applies to non-numeric resul ts) [facility] ([facility]) Baso # 0.1 10 0.0-0.2 Normal (applies to non-numeric resul ts) [facility] ([facility]) ID Date Data Source [id number] 12/27/2019 01:40:00 PM EDT [facility] ([facility]) Name Value Range Interpretation Code Description Data Mary rce(s) Supporting Document(s) Blood Urea Nitrogen 37 mg/dL 7-18 Above high normal [facility] ([facility]) Glucose, Fasting 73 mg/dL 70-100 Normal (applies to non-numeric results) [facility] ([facility]) Creatinine For GFR 1.92 mg/dL 0.55-1.30 Above high normal [facility] ([facility]) Sodium Level 132 meq/L 136-145 Below low normal [facility] ([facility]) Potassium Serum 4.3 meq/L 3.5-5.1 Normal (applies to non-numeric results) [facility] ([facility]) Glomerular Filtration Rate 29.2 Below low normal [facility] ([facility]) <content>Units are mL/min/1.73 m2</content>
<content></content>
<content>Chronic Kidney Disease Staging per NKF:</content>
<content></content>
<content>Stage I & II GFR >=60 Normal to Mildly Decreased</content>
<content>Stage III GFR 30- 59 Moderately Decreased</content>
<content>Stage IV GFR 15-29 Severely Decreased</content>
<content>Stage V GFR <15 Very Little GFR Left</content>
<content>ESRD GFR <15 on RAT EXTERMINATOR</content>
<content></content> Carbon Dioxide Level 24 meq/L 21-32 Normal (applies to non-num denita results) [facility] ([facility]) Anion Gap 6 meq/L 8-16 Below low normal [facility] ( [facility]) Chloride Level 102 meq/L 98-107 Normal (applies to non-numeric r esults) [facility] ([facility]) Ast/Sgot 16 U/L 7-37 Normal (applies to non-numeric resul ts) [facility] ([facility]) Calcium Level 8.7 mg/dL 8.5-10.1 Normal (applies to non-numeric re sults) [facility] ([facility]) Alt/SGPT 19 U/L 12-78 Normal (applies to non-numeric resul ts) [facility] ([facility]) Alkaline Phosphatase 163 U/L 45-117 Above high normal [facility] ([facility]) Bilirubin,Total 0.2 mg/dL 0.2-1.0 Normal (applies to non-numeric results) [facility] ([facility]) Total Protein 7.0 GM/DL 6.4-8.2 Normal (applies to non-numeric re sults) [facility] ([facility]) Albumin 2.9 GM/DL 3.2-5.2 Below low normal [facility] ( [facility]) Albumin/Globulin Ratio 0.7 1.2-2.2 Below low normal [facility] ([facility]) ID Date Data Source [id number] 12/27/2019 01:40:00 PM EDT [facility] ([facility]) Name Value Range Interpretation Code Description Data Mary rce(s) Supporting Document(s) Cholesterol Level 159 mg/dL Normal (applies to non-numeri c results) [facility] ([facility]) Triglycerides Level 294 mg/dL Above high normal [facility] ([facility]) HDL Cholesterol 39 mg/dL Below low normal [facility] ([facility]) Non-HDL-C 120 mg/dL Normal (applies to non-numeric resul ts) [facility] ([facility]) LDL Cholesterol 61 mg/dL Normal (applies to non-numeric results) [facility] ([facility]) Cholesterol Risk Ratio 4.076 Normal (applies to non-n umeric results) [facility] ([facility]) Procedure Social History Code Duration Value Status Description Data Source(s ) Smoking 01/16/2021 12:00:00 AM EDT Current Smoker completed Curre nt Smoker eCW1 ([facility]) Smoking 01/16/2021 12:00:00 AM EDT Current Smoker completed Curre nt Smoker eCW1 ([facility]) Smoking 01/09/2021 12:00:00 AM EDT Current Smoker completed Curre nt Smoker eCW1 ([facility]) Smoking 12/26/2020 12:00:00 AM EDT Current Smoker completed Curre nt Smoker eCW1 ([facility]) Smoking 12/12/2020 12:00:00 AM EDT Current Smoker completed Curre nt Smoker eCW1 ([facility]) Smoking 11/15/2020 12:00:00 AM EDT Current Smoker completed Curre nt Smoker eCW1 ([facility]) Smoking 11/15/2020 12:00:00 AM EDT Current Smoker completed Curre nt Smoker eCW1 ([facility]) Smoking 11/01/2020 12:00:00 AM EDT Current Smoker completed Curre nt Smoker eCW1 ([facility]) Smoking 10/11/2020 12:00:00 AM EDT Current Smoker completed Curre nt Smoker eCW1 ([facility]) Smoking 10/11/2020 12:00:00 AM EDT Current Smoker completed Curre nt Smoker eCW1 ([facility]) Smoking 10/11/2020 12:00:00 AM EDT Current Smoker completed Curre nt Smoker eCW1 ([facility]) Smoking 10/11/2020 12:00:00 AM EDT Current Smoker completed Curre nt Smoker eCW1 ([facility]) Smoking 09/27/2020 12:00:00 AM EDT Current Smoker completed Curre nt Smoker eCW1 ([facility]) Smoking 09/12/2020 12:00:00 AM EDT Current Smoker completed Curre nt Smoker eCW1 ([facility]) Smoking 09/12/2020 12:00:00 AM EDT Current Smoker completed Curre nt Smoker eCW1 ([facility]) Smoking 08/29/2020 12:00:00 AM EDT Current Smoker completed Curre nt Smoker eCW1 ([facility]) Smoking 08/29/2020 12:00:00 AM EDT Current Smoker completed Curre nt Smoker eCW1 ([facility]) Smoking 08/15/2020 12:00:00 AM EDT Current Smoker completed Curre nt Smoker eCW1 ([facility]) Alcohol intake 08/13/2020 12:00:00 AM EDT Current non-d jennifer of alcohol (finding) completed Current non-drinker of alcohol (finding) [facility] Smoking 08/09/2020 12:00:00 AM EDT Current Smoker completed Curre nt Smoker eCW1 ([facility]) Smoking 07/30/2020 12:00:00 AM EDT Current Smoker completed Curre nt Smoker eCW1 ([facility]) Smoking 07/24/2020 12:00:00 AM EDT Current Smoker completed Curre nt Smoker eCW1 ([facility]) Smoking 07/16/2020 12:00:00 AM EDT Current Smoker completed Curre nt Smoker eCW1 ([facility]) Smoking 07/16/2020 12:00:00 AM EDT Current Smoker completed Curre nt Smoker eCW1 ([facility]) Smoking 07/16/2020 12:00:00 AM EDT Current Smoker completed Curre nt Smoker eCW1 ([facility]) Smoking 07/12/2020 12:00:00 AM EDT Current Smoker completed Curre nt Smoker eCW1 ([facility]) 07/09/2020 12:00:00 AM EDT Patient is a current smoker, smokes every day completed Patient is a current smoker, smokes every day MED[facility] ( [facility] Smoking 07/05/2020 12:00:00 AM EDT Current Smoker completed Curre nt Smoker eCW1 ([facility]) Smoking 07/05/2020 12:00:00 AM EDT Current Smoker completed Curre nt Smoker eCW1 ([facility]) Smoking 07/05/2020 12:00:00 AM EDT Current Smoker completed Curre nt Smoker eCW1 ([facility]) Alcohol intake 06/21/2020 12:00:00 AM EST Current non-d jennifer of alcohol (finding) completed Current non-drinker of alcohol (finding) [facility] Cigarette pack-years 06/21/2020 12:00:00 AM EST UNK completed [facility] Cigarettes smoked current (pack per day) - Reported 06/22/19 12:00:00 AM EST UNK completed [facility] Smoking 06/21/2020 12:00:00 AM EST Current every day smoker co mpleted Current every day smoker [facility] Smoking 05/31/2020 12:00:00 AM EST Current Smoker completed Curre nt Smoker eCW1 ([facility]) Smoking 05/31/2020 12:00:00 AM EST Current Smoker completed Curre nt Smoker eCW1 ([facility]) Smoking 05/31/2020 12:00:00 AM EST Current Smoker completed Curre nt Smoker eCW1 ([facility]) Smoking 05/24/2020 12:00:00 AM EST Current Smoker completed Curre nt Smoker eCW1 ([facility]) Alcohol intake 05/18/2020 12:00:00 AM EST No completed [facility] Cigarette pack-years 05/18/2020 12:00:00 AM EST UNK completed [facility] Cigarettes smoked current (pack per day) - Reported 05/18/19 12:00:00 AM EST UNK completed [facility] Smoking 05/18/2020 12:00:00 AM EST Current every day smoker co mpleted Current every day smoker [facility] Smoking 05/17/2020 12:00:00 AM EST Current Smoker completed Curre nt Smoker eCW1 ([facility]) Smoking 05/10/2020 12:00:00 AM EST Current Smoker completed Curre nt Smoker eCW1 ([facility]) Smoking 05/10/2020 12:00:00 AM EST Current Smoker completed Curre nt Smoker eCW1 ([facility]) Alcohol intake 04/11/2020 12:00:00 AM EST No completed [facility] Cigarette pack-years 04/11/2020 12:00:00 AM EST UNK completed [facility] Cigarettes smoked current (pack per day) - Reported 04/11/20 20 12:00:00 AM EST UNK completed [facility] Smoking 04/11/2020 12:00:00 AM EST Current every day smoker co mpleted Current every day smoker [facility] Smoking 04/05/2020 12:00:00 AM EST Current Smoker completed Curre nt Smoker eCW1 ([facility]) Smoking 04/05/2020 12:00:00 AM EST Current Smoker completed Curre nt Smoker eCW1 ([facility]) Smoking 04/05/2020 12:00:00 AM EST Current Smoker completed Curre nt Smoker eCW1 ([facility]) Alcohol intake 04/01/2020 12:00:00 AM EST No completed [facility] Cigarette pack-years 04/01/2020 12:00:00 AM EST UNK completed [facility] Cigarettes smoked current (pack per day) - Reported 04/01/20 12:00:00 AM EST UNK completed [facility] Smoking 04/01/2020 12:00:00 AM EST Current every day smoker co mpleted Current every day smoker [facility] Smoking 03/28/2020 12:00:00 AM EST Current Smoker completed Curre nt Smoker eCW1 ([facility]) ETOH Use 03/21/2020 12:00:00 AM EST Denies alcohol use complete d Denies alcohol use [facility] ([facility]) Smoking 03/21/2020 12:00:00 AM EST Former Cigarette Smok er 1 Pack Daily completed Former Cigarette Smoker 1 Pack Daily MED[facility] ([facility]) Smoking 03/21/2020 12:00:00 AM EST Current Smoker completed Curre nt Smoker eCW1 ([facility]) Smoking 02/29/2020 12:00:00 AM EST Current Smoker completed Curre nt Smoker eCW1 ([facility]) Smoking 02/29/2020 12:00:00 AM EST Current Smoker completed Curre nt Smoker eCW1 ([facility]) Smoking 02/29/2020 12:00:00 AM EST Current Smoker completed Curre nt Smoker eCW1 ([facility]) Smoking 02/29/2020 12:00:00 AM EST Current Smoker completed Curre nt Smoker eCW1 ([facility]) Smoking 02/29/2020 12:00:00 AM EST Current Smoker completed Curre nt Smoker eCW1 ([facility]) Alcohol intake 02/13/2020 12:00:00 AM EDT No completed [facility] Cigarette pack-years 02/13/2020 12:00:00 AM EDT UNK completed [facility] Cigarettes smoked current (pack per day) - Reported 02/13/20 12:00:00 AM EDT UNK completed [facility] Smoking 02/13/2020 12:00:00 AM EDT Current every day smoker co mpleted Current every day smoker [facility] Alcohol intake 02/05/2020 12:00:00 AM EDT No completed [facility] Cigarette pack-years 02/05/2020 12:00:00 AM EDT UNK completed [facility] Cigarettes smoked current (pack per day) - Reported 02/05/20 12:00:00 AM EDT UNK completed [facility] Smoking 02/05/2020 12:00:00 AM EDT Current every day smoker co mpleted Current every day smoker [facility] Smoking 02/02/2020 12:00:00 AM EDT Current Smoker completed Curre nt Smoker eCW1 ([facility]) Smoking 02/02/2020 12:00:00 AM EDT Current Smoker completed Curre nt Smoker eCW1 ([facility]) Smoking 02/02/2020 12:00:00 AM EDT Current Smoker completed Curre nt Smoker eCW1 ([facility]) Smoking 02/02/2020 12:00:00 AM EDT Current Smoker completed Curre nt Smoker eCW1 ([facility]) Smoking 02/02/2020 12:00:00 AM EDT Current Smoker completed Curre nt Smoker eCW1 ([facility]) Smoking 02/02/2020 12:00:00 AM EDT Current Smoker completed Curre nt Smoker eCW1 ([facility]) Vital Signs ID Date Data Source UNK Name Value Range Interpretation Code Description Data Source(s) Body weight 190.0 [lb_av] 190.0 [lb_av] [facility] Body weight 86.18 kg 86.18 kg eCW1 ([facility]) Body height 64 [in_i] 64 [in_i] eCW1 ([facility]) Body mass index (BMI) [Ratio] 32.61 kg/m2 32.61 kg/m2 eCW1 ([facility]) Heart rate 98 /min 98 /min eCW1 ([facility]) Systolic blood pressure 96 mm[Hg] 96 mm[Hg] e CW1 ([facility]) Diastolic blood pressure 64 mm[Hg] 64 mm[Hg] eCW1 ([facility]) Respiratory rate 18 /min 18 /min eCW1 ([facility]) Body temperature 97.6 [degF] 97.6 [degF] eCW1 ( [facility]) Body weight 185 [lb_av] 185 [lb_av] eCW1 ([facility]) Body weight 83.92 kg 83.92 kg eCW1 ([facility]) Body height 64 [in_i] 64 [in_i] eCW1 ([facility]) Body mass index (BMI) [Ratio] 31.75 kg/m2 31.75 kg/m2 W1 ([facility]) Heart rate 100 /min 100 /min eCW1 ([facility]) Respiratory rate 21 /min 21 /min eCW1 ([facility]) Body temperature 95.4 [degF] 95.4 [degF] eCW1 ( [facility]) Systolic blood pressure 123 mm[Hg] 123 mm[Hg] e CW1 ([facility]) Diastolic blood pressure 75 mm[Hg] 75 mm[Hg] eCW1 ([facility]) Body weight 180 [lb_av] 180 [lb_av] eCW1 ([facility]) Body height 64 [in_i] 64 [in_i] eCW1 ([facility]) Body mass index (BMI) [Ratio] 30.89 kg/m2 30.89 kg/m2 eCW1 ([facility]) Heart rate 78 /min 78 /min eCW1 ([facility]) Respiratory rate 20 /min 20 /min eCW1 ([facility]) Body temperature 98.1 [degF] 98.1 [degF] eCW1 ( [facility]) Systolic blood pressure 113 mm[Hg] 113 mm[Hg] e CW1 ([facility]) Diastolic blood pressure 70 mm[Hg] 70 mm[Hg] eCW1 ([facility]) Body weight 180 [lb_av] 180 [lb_av] eCW1 ([facility]) Body height 64 [in_i] 64 [in_i] eCW1 ([facility]) Body mass index (BMI) [Ratio] 30.89 kg/m2 30.89 kg/m2 eCW1 ([facility]) Heart rate 83 /min 83 /min eCW1 ([facility]) Respiratory rate 19 /min 19 /min eCW1 ([facility]) Body temperature 98.3 [degF] 98.3 [degF] eCW1 ( [facility]) Systolic blood pressure 102 mm[Hg] 102 mm[Hg] e CW1 ([facility]) Diastolic blood pressure 59 mm[Hg] 59 mm[Hg] eCW1 ([facility]) Body weight 180 [lb_av] 180 [lb_av] eCW1 ([facility]) Body weight kg eCW1 ([facility]) Body height 64 [in_i] 64 [in_i] eCW1 ([facility]) Body mass index (BMI) [Ratio] 30.89 kg/m2 30.89 kg/m2 eCW1 ([facility]) Heart rate 74 /min 74 /min eCW1 ([facility]) Respiratory rate 18 /min 18 /min eCW1 ([facility]) Body temperature 98.3 [degF] 98.3 [degF] eCW1 ( [facility]) Systolic blood pressure 96 mm[Hg] 96 mm[Hg] e CW1 ([facility]) Diastolic blood pressure 50 mm[Hg] 50 mm[Hg] eCW1 ([facility]) Body weight 180 [lb_av] 180 [lb_av] eCW1 ([facility]) Body weight kg eCW1 ([facility]) Body height 64 [in_i] 64 [in_i] eCW1 ([facility]) Diastolic blood pressure 55 mm[Hg] 55 mm[Hg] eCW1 ([facility]) Systolic blood pressure 110 mm[Hg] 110 mm[Hg] e CW1 ([facility]) Body mass index (BMI) [Ratio] 30.89 kg/m2 30.89 kg/m2 eCW1 ([facility]) Heart rate 87 /min 87 /min eCW1 ([facility]) Respiratory rate 18 /min 18 /min eCW1 ([facility]) Body temperature 98.4 [degF] 98.4 [degF] eCW1 ( [facility]) Respiratory rate 19 /min 19 /min eCW1 ([facility]) Body temperature [degF] eCW1 ([facility]) Systolic blood pressure 115 mm[Hg] 115 mm[Hg] e CW1 ([facility]) Body weight 180 [lb_av] 180 [lb_av] eCW1 ([facility]) Body weight kg eCW1 ([facility]) Body height 64 [in_i] 64 [in_i] eCW1 ([facility]) Body mass index (BMI) [Ratio] 30.89 kg/m2 30.89 kg/m2 eCW1 ([facility]) Heart rate 86 /min 86 /min eCW1 ([facility]) Diastolic blood pressure 84 mm[Hg] 84 mm[Hg] eCW1 ([facility]) Body weight 180 [lb_av] 180 [lb_av] eCW1 ([facility]) Body weight kg eCW1 ([facility]) Body height 64 [in_i] 64 [in_i] eCW1 ([facility]) Body mass index (BMI) [Ratio] 30.89 kg/m2 30.89 kg/m2 eCW1 ([facility]) Heart rate 71 /min 71 /min eCW1 ([facility]) Respiratory rate 16 /min 16 /min eCW1 ([facility]) Body temperature 98.4 [degF] 98.4 [degF] eCW1 ( [facility]) Systolic blood pressure 97 mm[Hg] 97 mm[Hg] e CW1 ([facility]) Diastolic blood pressure 57 mm[Hg] 57 mm[Hg] eCW1 ([facility]) Body weight 180 [lb_av] 180 [lb_av] eCW1 ([facility]) Body weight kg eCW1 ([facility]) Body height 64 [in_i] 64 [in_i] eCW1 ([facility]) Body mass index (BMI) [Ratio] 30.89 kg/m2 30.89 kg/m2 eCW1 ([facility]) Heart rate 59 /min 59 /min eCW1 ([facility]) Respiratory rate 16 /min 16 /min eCW1 ([facility]) Body temperature 98.3 [degF] 98.3 [degF] eCW1 ( [facility]) Systolic blood pressure 101 mm[Hg] 101 mm[Hg] e CW1 ([facility]) Diastolic blood pressure 58 mm[Hg] 58 mm[Hg] eCW1 ([facility]) Heart rate 83 /min 83 /min eCW1 ([facility]) Respiratory rate 16 /min 16 /min eCW1 ([facility]) Body temperature 98.3 [degF] 98.3 [degF] eCW1 ( [facility]) Systolic blood pressure 118 mm[Hg] 118 mm[Hg] e CW1 ([facility]) Diastolic blood pressure 58 mm[Hg] 58 mm[Hg] eCW1 ([facility]) Body weight 180 [lb_av] 180 [lb_av] eCW1 ([facility]) Body weight kg eCW1 ([facility]) Body height 64 [in_i] 64 [in_i] eCW1 ([facility]) Body mass index (BMI) [Ratio] 30.89 kg/m2 30.89 kg/m2 eCW1 ([facility]) Body weight 180 [lb_av] 180 [lb_av] eCW1 ([facility]) Respiratory rate 18 /min 18 /min eCW1 ([facility]) Body temperature 98.2 [degF] 98.2 [degF] eCW1 ( [facility]) Systolic blood pressure 98 mm[Hg] 98 mm[Hg] e CW1 ([facility]) Diastolic blood pressure 81 mm[Hg] 81 mm[Hg] eCW1 ([facility]) Body height 64 [in_i] 64 [in_i] eCW1 ([facility]) Body mass index (BMI) [Ratio] 30.89 kg/m2 30.89 kg/m2 eCW1 ([facility]) Heart rate 89 /min 89 /min eCW1 ([facility]) Body weight kg eCW1 ([facility]) Body weight 180 [lb_av] 180 [lb_av] eCW1 ([facility]) Body weight kg eCW1 ([facility]) Body height 64 [in_i] 64 [in_i] eCW1 ([facility]) Body mass index (BMI) [Ratio] 30.89 kg/m2 30.89 kg/m2 eCW1 ([facility]) Heart rate 89 /min 89 /min eCW1 ([facility]) Respiratory rate 18 /min 18 /min eCW1 ([facility]) Body temperature 97.9 [degF] 97.9 [degF] eCW1 ( [facility]) Systolic blood pressure 100 mm[Hg] 100 mm[Hg] e CW1 ([facility]) Diastolic blood pressure 59 mm[Hg] 59 mm[Hg] eCW1 ([facility]) Heart rate 89 /min 89 /min [facility] Systolic blood pressure 146 mm[Hg] 146 mm[Hg] [facility] Diastolic blood pressure 85 mm[Hg] 85 mm[Hg] [facility] Body temperature 36.78 Simi 36.78 Simi [facility] Respiratory rate 16 /min 16 /min [facility] Oxygen saturation in Arterial blood by Pulse oximetry 96 % 96 % [facility] Body weight 170 [lb_av] 170 [lb_av] eCW1 ([facility]) Body weight kg eCW1 ([facility]) Body height 64 [in_i] 64 [in_i] eCW1 ([facility]) Body mass index (BMI) [Ratio] 29.18 kg/m2 29.18 kg/m2 eCW1 ([facility]) Heart rate 91 /min 91 /min eCW1 ([facility]) Respiratory rate 18 /min 18 /min eCW1 ([facility]) Body temperature 97.9 [degF] 97.9 [degF] eCW1 ( [facility]) Systolic blood pressure 96 mm[Hg] 96 mm[Hg] e CW1 ([facility]) Diastolic blood pressure 55 mm[Hg] 55 mm[Hg] eCW1 ([facility]) Body mass index (BMI) [Ratio] 29.18 kg/m2 29.18 kg/m2 eCW1 ([facility]) Body weight 170 [lb_av] 170 [lb_av] eCW1 ([facility]) Heart rate 74 /min 74 /min eCW1 ([facility]) Systolic blood pressure 96 mm[Hg] 96 mm[Hg] e CW1 ([facility]) Diastolic blood pressure 55 mm[Hg] 55 mm[Hg] eCW1 ([facility]) Respiratory rate 18 /min 18 /min eCW1 ([facility]) Body temperature 98.0 [degF] 98.0 [degF] eCW1 ( [facility]) Body weight kg eCW1 ([facility]) Body height 64 [in_i] 64 [in_i] eCW1 ([facility]) Body weight 170 [lb_av] 170 [lb_av] eCW1 ([facility]) Body weight kg eCW1 ([facility]) Body height 64 [in_i] 64 [in_i] eCW1 ([facility]) Body mass index (BMI) [Ratio] 29.18 kg/m2 29.18 kg/m2 eCW1 ([facility]) Heart rate 83 /min 83 /min eCW1 ([facility]) Respiratory rate 18 /min 18 /min eCW1 ([facility]) Body temperature 98 [degF] 98 [degF] eCW1 ([facility]) Systolic blood pressure 106 mm[Hg] 106 mm[Hg] e CW1 ([facility]) Diastolic blood pressure 58 mm[Hg] 58 mm[Hg] eCW1 ([facility]) Body weight 170 [lb_av] 170 [lb_av] eCW1 ([facility]) Body weight kg eCW1 ([facility]) Body height 64 [in_i] 64 [in_i] eCW1 ([facility]) Body mass index (BMI) [Ratio] 29.18 kg/m2 29.18 kg/m2 eCW1 ([facility]) Heart rate 83 /min 83 /min eCW1 ([facility]) Respiratory rate 18 /min 18 /min eCW1 ([facility]) Body temperature 98.1 [degF] 98.1 [degF] eCW1 ( [facility]) Systolic blood pressure 105 mm[Hg] 105 mm[Hg] e CW1 ([facility]) Diastolic blood pressure 71 mm[Hg] 71 mm[Hg] eCW1 ([facility]) Body weight 170 [lb_av] 170 [lb_av] eCW1 ([facility]) Body height 64 [in_i] 64 [in_i] eCW1 ([facility]) Body mass index (BMI) [Ratio] 29.18 kg/m2 29.18 kg/m2 eCW1 ([facility]) Heart rate 80 /min 80 /min eCW1 ([facility]) Respiratory rate 16 /min 16 /min eCW1 ([facility]) Body temperature 97.1 [degF] 97.1 [degF] eCW1 ( [facility]) Systolic blood pressure 106 mm[Hg] 106 mm[Hg] M EDENT ([facility]) Diastolic blood pressure 64 mm[Hg] 64 mm[Hg] [facility] ([facility]) Body temperature 96.1 [degF] 96.1 [degF] MED[facility] ([facility]) Body weight 170 [lb_av] 170 [lb_av] eCW1 ([facility]) Body weight kg eCW1 ([facility]) Body height 64 [in_i] 64 [in_i] eCW1 ([facility]) Body mass index (BMI) [Ratio] 29.18 kg/m2 29.18 kg/m2 eCW1 ([facility]) Heart rate 74 /min 74 /min eCW1 ([facility]) Respiratory rate 18 /min 18 /min eCW1 ([facility]) Body temperature 98.2 [degF] 98.2 [degF] eCW1 ( [facility]) Systolic blood pressure 118 mm[Hg] 118 mm[Hg] e CW1 ([facility]) Diastolic blood pressure 82 mm[Hg] 82 mm[Hg] eCW1 ([facility]) Body weight 170 [lb_av] 170 [lb_av] eCW1 ([facility]) Body weight kg eCW1 ([facility]) Body height 64 [in_i] 64 [in_i] eCW1 ([facility]) Body mass index (BMI) [Ratio] 29.18 kg/m2 29.18 kg/m2 eCW1 ([facility]) Heart rate 84 /min 84 /min eCW1 ([facility]) Respiratory rate 18 /min 18 /min eCW1 ([facility]) Body temperature 97.7 [degF] 97.7 [degF] eCW1 ( [facility]) Systolic blood pressure 106 mm[Hg] 106 mm[Hg] e CW1 ([facility]) Diastolic blood pressure 88 mm[Hg] 88 mm[Hg] eCW1 ([facility]) Body weight 170 [lb_av] 170 [lb_av] eCW1 ([facility]) Body weight kg eCW1 ([facility]) Body height 64 [in_i] 64 [in_i] eCW1 ([facility]) Body mass index (BMI) [Ratio] 29.18 kg/m2 29.18 kg/m2 eCW1 ([facility]) Heart rate 94 /min 94 /min eCW1 ([facility]) Respiratory rate 18 /min 18 /min eCW1 ([facility]) Body temperature 95.0 [degF] 95.0 [degF] eCW1 ( [facility]) Systolic blood pressure 103 mm[Hg] 103 mm[Hg] e CW1 ([facility]) Diastolic blood pressure 59 mm[Hg] 59 mm[Hg] eCW1 ([facility]) Body weight 80.287 kg 80.287 kg [facility] Systolic blood pressure 100 mm[Hg] 100 mm[Hg] [facility] Diastolic blood pressure 60 mm[Hg] 60 mm[Hg] [facility] Heart rate 98 /min 98 /min [facility] Body height 162.6 cm 162.6 cm [facility] Body mass index (BMI) [Ratio] 30.38 kg/m2 30.38 kg/m2 [facility] Oxygen saturation in Arterial blood by Pulse oximetry 96 % 96 % [facility] Body weight 170 [lb_av] 170 [lb_av] eCW1 ([facility]) Body weight kg eCW1 ([facility]) Body height 64 [in_i] 64 [in_i] eCW1 ([facility]) Body mass index (BMI) [Ratio] 29.18 kg/m2 29.18 kg/m2 W1 ([facility]) Heart rate 81 /min 81 /min W1 ([facility]) Respiratory rate 18 /min 18 /min W1 ([facility]) Body temperature 95.4 [degF] 95.4 [degF] eCW1 ( [facility]) Systolic blood pressure 100 mm[Hg] 100 mm[Hg] e CW1 ([facility]) Diastolic blood pressure 57 mm[Hg] 57 mm[Hg] eCW1 ([facility]) Body weight 170 [lb_av] 170 [lb_av] eCW1 ([facility]) Body weight kg eCW1 ([facility]) Body height 64 [in_i] 64 [in_i] eCW1 ([facility]) Body mass index (BMI) [Ratio] 29.18 kg/m2 29.18 kg/m2 W1 ([facility]) Heart rate 91 /min 91 /min eCW1 ([facility]) Respiratory rate 18 /min 18 /min eCW1 ([facility]) Body temperature 96.2 [degF] 96.2 [degF] eCW1 ( [facility]) Systolic blood pressure 86 mm[Hg] 86 mm[Hg] e CW1 ([facility]) Diastolic blood pressure 57 mm[Hg] 57 mm[Hg] eCW1 ([facility]) Systolic blood pressure 124 mm[Hg] 124 mm[Hg] [facility] Diastolic blood pressure 63 mm[Hg] 63 mm[Hg] [facility] Heart rate 85 /min 85 /min [facility] Body temperature 36.44 Simi 36.44 Simi [facility] Respiratory rate 20 /min 20 /min [facility] Oxygen saturation in Arterial blood by Pulse oximetry 99 % 99 % [facility] Body height 162.6 cm 162.6 cm [facility] Body weight 76.204 kg 76.204 kg [facility] Body mass index (BMI) [Ratio] 28.84 kg/m2 28.84 kg/m2 [facility] Body mass index (BMI) [Ratio] 29.18 kg/m2 29.18 kg/m2 W1 ([facility]) Body weight 170 [lb_av] 170 [lb_av] W1 ([facility]) Body height 64 [in_i] 64 [in_i] eCW1 ([facility]) Heart rate 104 /min 104 /min eCW1 ([facility]) Respiratory rate 18 /min 18 /min eCW1 ([facility]) Body temperature 95.4 [degF] 95.4 [degF] W1 ( [facility]) Systolic blood pressure 86 mm[Hg] 86 mm[Hg] e CW1 ([facility]) Diastolic blood pressure 65 mm[Hg] 65 mm[Hg] eCW1 ([facility]) Body weight 170 [lb_av] 170 [lb_av] eCW1 ([facility]) Body height 64 [in_i] 64 [in_i] eCW1 ([facility]) Body mass index (BMI) [Ratio] 29.18 kg/m2 29.18 kg/m2 eCW1 ([facility]) Heart rate 95 /min 95 /min eCW1 ([facility]) Respiratory rate 16 /min 16 /min eCW1 ([facility]) Body temperature 97.8 [degF] 97.8 [degF] eCW1 ( [facility]) Systolic blood pressure 108 mm[Hg] 108 mm[Hg] e CW1 ([facility]) Diastolic blood pressure 56 mm[Hg] 56 mm[Hg] eCW1 ([facility]) Body weight 170 [lb_av] 170 [lb_av] eCW1 ([facility]) Body height 64 [in_i] 64 [in_i] eCW1 ([facility]) Body mass index (BMI) [Ratio] 29.18 kg/m2 29.18 kg/m2 eCW1 ([facility]) Heart rate 105 /min 105 /min eCW1 ([facility]) Body temperature 96.9 [degF] 96.9 [degF] eCW1 ( [facility]) Systolic blood pressure 130 mm[Hg] 130 mm[Hg] e CW1 ([facility]) Diastolic blood pressure 60 mm[Hg] 60 mm[Hg] eCW1 ([facility]) Systolic blood pressure 100 mm[Hg] 100 mm[Hg] [facility] Diastolic blood pressure 58 mm[Hg] 58 mm[Hg] [facility] Heart rate 88 /min 88 /min [facility] Body height 162.6 cm 162.6 cm [facility] Body weight 79.379 kg 79.379 kg [facility] Body mass index (BMI) [Ratio] 30.04 kg/m2 30.04 kg/m2 [facility] Oxygen saturation in Arterial blood by Pulse oximetry 97 % 97 % [facility] Body weight 77.112 kg 77.112 kg [facility] ([facility] Body height 64 [in_i] 64 [in_i] [facility] ([facility]) 5'4" Body mass index (BMI) [Ratio] 29.2 kg/m2 29.2 k g/m2 [facility] ([facility]) Systolic blood pressure 90 mm[Hg] 90 mm[Hg] M [facility] ([facility]) Diastolic blood pressure 60 mm[Hg] 60 mm[Hg] [facility] ([facility]) Heart rate 76 /min 76 /min [facility] ([facility] Systolic blood pressure 96 mm[Hg] 96 mm[Hg] M [facility] ([facility]) Diastolic blood pressure 50 mm[Hg] 50 mm[Hg] [facility] ([facility]) Body weight 170.00 [lb_av] 170.00 [lb_av] MEDEN T ([facility]) Systolic blood pressure 170 mm[Hg] 170 mm[Hg] [facility] Diastolic blood pressure 81 mm[Hg] 81 mm[Hg] [facility] Oxygen saturation in Arterial blood by Pulse oximetry 96 % 96 % [facility] Respiratory rate 18 /min 18 /min [facility] Heart rate 71 /min 71 /min [facility] Body temperature 36.61 Simi 36.61 Simi [facility] Body weight 84.188 kg 84.188 kg [facility] Body mass index (BMI) [Ratio] 31.86 kg/m2 31.86 kg/m2 [facility] Body height 162.6 cm 162.6 cm [facility] Body weight 170 [lb_av] 170 [lb_av] eCW1 ([facility]) Body weight kg eCW1 ([facility]) Body height 64 [in_i] 64 [in_i] eCW1 ([facility]) Body mass index (BMI) [Ratio] 29.18 kg/m2 29.18 kg/m2 eCW1 ([facility]) Heart rate 93 /min 93 /min eCW1 ([facility]) Respiratory rate 18 /min 18 /min eCW1 ([facility]) Body temperature 96 [degF] 96 [degF] eCW1 ([facility]) Systolic blood pressure 156 mm[Hg] 156 mm[Hg] e CW1 ([facility]) Diastolic blood pressure 91 mm[Hg] 91 mm[Hg] eCW1 ([facility]) Systolic blood pressure 100 mm[Hg] 100 mm[Hg] [facility] Diastolic blood pressure 60 mm[Hg] 60 mm[Hg] [facility] Heart rate 85 /min 85 /min [facility] Body height 162.6 cm 162.6 cm [facility] Body weight 80.287 kg 80.287 kg [facility] Body mass index (BMI) [Ratio] 30.38 kg/m2 30.38 kg/m2 [facility] Oxygen saturation in Arterial blood by Pulse oximetry 97 % 97 % [facility] Heart rate 94 /min 94 /min eCW1 ([facility]) Respiratory rate 18 /min 18 /min eCW1 ([facility]) Body temperature 97.9 [degF] 97.9 [degF] eCW1 ( [facility]) Systolic blood pressure 118 mm[Hg] 118 mm[Hg] e CW1 ([facility]) Diastolic blood pressure 58 mm[Hg] 58 mm[Hg] eCW1 ([facility]) Body weight 170 [lb_av] 170 [lb_av] eCW1 ([facility]) Body weight kg eCW1 ([facility]) Body height 64 [in_i] 64 [in_i] W1 ([facility]) Body mass index (BMI) [Ratio] 29.18 kg/m2 29.18 kg/m2 eCW1 ([facility]) Systolic blood pressure 90 mm[Hg] 90 mm[Hg] M EDENT ([facility]) Systolic blood pressure 80 mm[Hg] 80 mm[Hg] M EDENT ([facility]) Diastolic blood pressure 50 mm[Hg] 50 mm[Hg] [facility] ([facility]) Body height 64 [in_i] 64 [in_i] [facility] ([facility] 5'4" Body weight 170.00 [lb_av] 170.00 [lb_av] MED[facility] T ([facility]) Body weight 77.112 kg 77.112 kg [facility] ([facility]) Body mass index (BMI) [Ratio] 29.2 kg/m2 29.2 k g/m2 [facility] ([facility]) Diastolic blood pressure 50 mm[Hg] 50 mm[Hg] [facility] ([facility]) Body weight 170 [lb_av] 170 [lb_av] eCW1 ([facility]) Body weight kg eCW1 ([facility]) Body height 64 [in_i] 64 [in_i] eCW1 ([facility]) Body mass index (BMI) [Ratio] 29.18 kg/m2 29.18 kg/m2 eCW1 ([facility]) Heart rate 94 /min 94 /min eCW1 ([facility]) Respiratory rate 20 /min 20 /min eCW1 ([facility]) Body temperature 96.5 [degF] 96.5 [degF] eCW1 ( [facility]) Systolic blood pressure 131 mm[Hg] 131 mm[Hg] e CW1 ([facility]) Diastolic blood pressure 61 mm[Hg] 61 mm[Hg] eCW1 ([facility]) Body mass index (BMI) [Ratio] 29.2 kg/m2 29.2 k g/m2 [facility] ([facility]) Systolic blood pressure 100 mm[Hg] 100 mm[Hg] M EDENT ([facility]) Diastolic blood pressure 65 mm[Hg] 65 mm[Hg] [facility] ([facility]) Heart rate 88 /min 88 /min [facility] ([facility] Body height 64 [in_i] 64 [in_i] [facility] ([facility]) 5'4" Body weight 170.00 [lb_av] 170.00 [lb_av] MED[facility] T ([facility]) Body weight 77.112 kg 77.112 kg [facility] ([facility] Body weight 170 [lb_av] 170 [lb_av] eCW1 ([facility]) Body weight kg eCW1 ([facility]) Body height 64 [in_i] 64 [in_i] eCW1 ([facility]) Body mass index (BMI) [Ratio] 29.18 kg/m2 29.18 kg/m2 eCW1 ([facility]) Heart rate 81 /min 81 /min eCW1 ([facility]) Respiratory rate 22 /min 22 /min eCW1 ([facility]) Body temperature 95.6 [degF] 95.6 [degF] eCW1 ( [facility]) Systolic blood pressure 114 mm[Hg] 114 mm[Hg] [facility] Diastolic blood pressure 55 mm[Hg] 55 mm[Hg] [facility] Heart rate 89 /min 89 /min [facility] Body temperature 37.06 Simi 37.06 Simi [facility] Respiratory rate 18 /min 18 /min [facility] Oxygen saturation in Arterial blood by Pulse oximetry 95 % 95 % [facility] Body height 162.6 cm 162.6 cm [facility] Body weight 76.204 kg 76.204 kg [facility] Body mass index (BMI) [Ratio] 28.84 kg/m2 28.84 kg/m2 [facility] Systolic blood pressure 157 mm[Hg] 157 mm[Hg] [facility] Diastolic blood pressure 79 mm[Hg] 79 mm[Hg] [facility] Heart rate 98 /min 98 /min [facility] Body temperature 36.61 Simi 36.61 Simi [facility] Respiratory rate 18 /min 18 /min [facility] Oxygen saturation in Arterial blood by Pulse oximetry 97 % 97 % [facility] Body weight 81.557 kg 81.557 kg [facility] Body mass index (BMI) [Ratio] 30.86 kg/m2 30.86 kg/m2 [facility] Body height 162.6 cm 162.6 cm [facility] Body mass index (BMI) [Ratio] 27.46 kg/m2 27.46 kg/m2 eCW1 ([facility]) Body weight 160 [lb_av] 160 [lb_av] eCW1 ([facility]) Body weight kg eCW1 ([facility]) Respiratory rate 19 /min 19 /min eCW1 ([facility]) Body temperature 96.0 [degF] 96.0 [degF] eCW1 ( [facility]) Systolic blood pressure 133 mm[Hg] 133 mm[Hg] e CW1 ([facility]) Diastolic blood pressure 77 mm[Hg] 77 mm[Hg] eCW1 ([facility]) Body height 64 [in_i] 64 [in_i] eCW1 ([facility]) Heart rate 100 /min 100 /min eCW1 ([facility]) Body weight 160 [lb_av] 160 [lb_av] eCW1 ([facility]) Body weight kg eCW1 ([facility]) Body height 64 [in_i] 64 [in_i] eCW1 ([facility]) Body mass index (BMI) [Ratio] 27.46 kg/m2 27.46 kg/m2 eCW1 ([facility]) Heart rate 99 /min 99 /min eCW1 ([facility]) Respiratory rate 20 /min 20 /min eCW1 ([facility]) Body temperature 96.9 [degF] 96.9 [degF] eCW1 ( [facility]) Systolic blood pressure 113 mm[Hg] 113 mm[Hg] e CW1 ([facility]) Diastolic blood pressure 60 mm[Hg] 60 mm[Hg] eCW1 ([facility]) Body weight 160 [lb_av] 160 [lb_av] eCW1 ([facility]) Body height 64 [in_i] 64 [in_i] eCW1 ([facility]) Body mass index (BMI) [Ratio] 27.46 kg/m2 27.46 kg/m2 eCW1 ([facility]) Heart rate 93 /min 93 /min eCW1 ([facility]) Respiratory rate 20 /min 20 /min eCW1 ([facility]) Body temperature 96.6 [degF] 96.6 [degF] eCW1 ( [facility]) Systolic blood pressure 149 mm[Hg] 149 mm[Hg] e CW1 ([facility]) Diastolic blood pressure 76 mm[Hg] 76 mm[Hg] eCW1 ([facility]) Systolic blood pressure 137 mm[Hg] 137 mm[Hg] M EDENT ([facility]) Diastolic blood pressure 78 mm[Hg] 78 mm[Hg] [facility] ([facility]) Body height 63.3 [in_i] 63.3 [in_i] [facility] ([facility]) 5'3.30" Heart rate 100 /min 100 /min [facility] Respiratory rate 20 /min 20 /min [facility] ( [facility] Body temperature 98.2 [degF] 98.2 [degF] [facility] ([facility]) Oxygen saturation in Arterial blood by Pulse oximetry 96 % 96 % [facility] ([facility]) Body height 64 [in_i] 64 [in_i] [facility] ([facility] 5'4" Body weight 160.00 [lb_av] 160.00 [lb_av] MEDEN T ([facility] Systolic blood pressure 70 mm[Hg] 70 mm[Hg] M [place] ([facility] Diastolic blood pressure 38 mm[Hg] 38 mm[Hg] [facility] ([facility] Heart rate 71 /min 71 /min [facility] ([facility] Body mass index (BMI) [Ratio] 27.5 kg/m2 27.5 k g/m2 [facility] ([facility] Patient Treatment Plan of Care Planned Activity Planned Date Details Description Data Source (s) normal saline flush 0.9 % injection 3 mL 08/13/2020 02:00:00 PM EDT [facility] normal saline flush 0.9 % injection 3 mL 08/13/2020 02:00:00 PM EDT [facility] Magnesium Chloride 0.72561 MEQ/ML / Pota ssium Chloride 0.0497 MEQ/ML / Sodium Acetate 0.0163 MEQ/ML / Sodium Chloride 0.0899 MEQ/ML / Sodium gluconate 5.02 MG/ML Injectable Solution [Normosol-R] 08/13/2020 11:00:00 AM EDT [facility] Magnesium Chloride 0.42780 MEQ/ML / Pota ssium Chloride 0.0497 MEQ/ML / Sodium Acetate 0.0163 MEQ/ML / Sodium Chloride 0.0899 MEQ/ML / Sodium gluconate 5.02 MG/ML Injectable Solution [Normosol-R] 08/13/2020 11:00:00 AM EDT [facility] ezetimibe 10 MG Oral Tablet 06/21/2020 12:00:00 AM EST [facility] Fluconazole 200 MG Oral Tablet 06/18/2020 12:00:00 AM EST [facility] tramadol hydrochloride 50 MG Oral Tablet 06/07/2020 12:00:00 AM EST [facility] dapagliflozin 10 MG Oral Tablet [Farxiga] 05/29/2020 12:00:00 AM ES T [facility] B Complex CAPS 05/25/2020 12:00:00 AM [facility] Aspirin 81 MG Chewable Tablet 05/20/2020 12:00:00 AM [facility] Nitroglycerin 0.4 MG Sublingual Tablet 05/19/2020 12:00:00 AM [facility] carvedilol 3.125 MG Oral Tablet 05/19/2020 12:00:00 AM [facility] clopidogrel 75 MG Oral Tablet 05/19/2020 12:00:00 AM [facility] Vitamin B 12 1 MG Oral Tablet 05/16/2020 12:00:00 AM [facility] pantoprazole 40 MG Delayed Release Oral Tablet 05/07/2020 12:00:00 AM [facility] Protonix 40 MG 05/03/2020 12:00:00 AM EST [facility]) Nystatin 100 UNT/MG Topical Powder 04/29/2020 12:00:00 AM [facility] Amoxicillin 875 MG / Clavulanate 125 MG Oral Tablet 04/25/19 21 12:00:00 AM [facility] Steglatro 15 MG 04/16/2020 12:00:00 AM EST [facility] ([facility]) Amoxicillin-Pot Clavulanate 875-125 MG 04/16/2020 12:00:00 AM EST [facility] ([facility]) Amoxicillin 875 MG / Clavulanate 125 MG Oral Tablet 04/15/20 20 12:00:00 AM [facility] Fluconazole 200 MG Oral Tablet 04/14/2020 12:00:00 AM [facility] Escitalopram Oxalate 20 MG 04/03/2020 12:00:00 AM EST [facility] ([facility]) TRULICITY 4.5 MG/0.5ML SOPN 04/02/2020 12:00:00 AM [facility] Escitalopram 20 MG Oral Tablet 04/01/2020 12:00:00 AM [facility] Fluconazole 200 MG 04/01/2020 12:00:00 AM EST [facility] ([facility]) Acetaminophen 325 MG / Hydrocodone Bitartrate 5 MG Ora l Tablet 03/28/2020 12:00:00 AM [facility] Acetaminophen 325 MG / Oxycodone Hydrochloride 5 MG Or al Tablet 03/21/2020 12:00:00 AM [facility] Aspirin 325 MG Oral Tablet 03/15/2020 12:00:00 AM EST [facility] Bactrim DS 800-160 MG 03/02/2020 12:00:00 AM EST [facility] ([facility]) Pregabalin 200 MG 02/28/2020 12:00:00 AM [facility] ([facility]) pregabalin 200 MG Oral Capsule 02/27/2020 12:00:00 AM [facility] Atorvastatin Calcium 80 MG 02/23/2020 12:00:00 AM EST [facility] ([facility]) Benadryl Allergy 25 MG 02/23/2020 12:00:00 AM EST [facility] ([facility]) Acetaminophen 8 Hour 650 MG 02/23/2020 12:00:00 AM EST [facility] ([facility]) MetroNIDAZOLE 250 MG 02/23/2020 12:00:00 AM EST [facility] ([facility]) Ciprofloxacin HCl 250 MG 02/23/2020 12:00:00 AM EST [facility] ([facility]) Metronidazole 250 MG Oral Tablet 02/20/2020 12:00:00 AM [facility] Ciprofloxacin 250 MG Oral Tablet 02/20/2020 12:00:00 AM EST [facility] DAILY CHE (THERAGRAN) per tablet 02/17/2020 12:00:00 AM EDT [facility] Meropenem 1 GM 02/16/2020 01:00:00 AM EDT [facility] ([facility]) Docusate Sodium 02/16/2020 01:00:00 AM EDT [facility] ([facility]) Clopidogrel Bisulfate 75 MG 02/16/2020 01:00:00 AM EDT [facility] ([facility]) Steglatro 15 MG 02/16/2020 01:00:00 AM EDT [facility] ([facility]) Pregabalin 150 MG 02/16/2020 01:00:00 AM EDT [facility] ([facility]) Pentoxifylline ER 400 MG 02/16/2020 01:00:00 AM EDT [facility] ([facility]) Ondansetron HCl 4 MG 02/16/2020 01:00:00 AM EDT [facility] ([facility]) Omeprazole 40 MG 02/16/2020 01:00:00 AM EDT [facility] ([facility]) Heparin 02/16/2020 01:00:00 AM EDT [facility] ([facility]) Normal Saline Flush 0.9 % 02/16/2020 01:00:00 AM EDT [facility]) Multivitamin 02/16/2020 01:00:00 AM EDT [facility] ([facility]) Bisacodyl Supp. 02/16/2020 01:00:00 AM EDT [facility] ([facility]) Oxycodone & Tylenol 02/16/2020 01:00:00 AM EDT [facility] ([facility]) Cyclobenzaprine 02/16/2020 01:00:00 AM EDT [facility] ([facility]) Escitalopram Oxalate 10 MG 02/16/2020 01:00:00 AM EDT [facility] ([facility]) Ferrous Sulfate 02/16/2020 01:00:00 AM EDT [facility] ([facility]) Lisinopril 5 MG 02/16/2020 01:00:00 AM EDT [facility] ([facility]) Loratadine 10 MG 02/16/2020 01:00:00 AM EDT [facility] ([facility]) Metoclopramide 02/16/2020 01:00:00 AM EDT [facility] ([facility]) Nystatin Powder 02/16/2020 01:00:00 AM EDT [facility] ([facility]) Tresiba FlexTouch 100 UNIT/ML 02/16/2020 01:00:00 AM EDT [facility] ([facility]) Trulicity 0.75 MG/0.5ML 02/16/2020 01:00:00 AM [facility] Admelog SoloStar 100 UNIT/ML 02/16/2020 01:00:00 AM EDT [facility] ([facility]) Albuterol Sulfate HFA 108 (90 Base) MCG/ACT 02/16/2020 01:00:00 AM EDT [facility] ([facility]) Breo Ellipta 100-25 MCG/INH 02/16/2020 01:00:00 AM EDT [facility] ([facility]) Atorvastatin Calcium 80 MG 02/16/2020 01:00:00 AM EDT [facility]) BuPROPion HBr ER 522 MG 02/16/2020 01:00:00 AM EDT [facility]) Aspirin 02/16/2020 01:00:00 AM EDT [facility] ([facility]) MiraLax 17 GM 02/16/2020 01:00:00 AM EDT [facility] ([facility]) Sodium Chloride Flush (NORMAL SALINE FLUSH) 0.9 % SOLN injection 02/16/2020 12:00:00 AM EDT [facility] Bisacodyl 10 MG Rectal Suppository 02/16/2020 12:00:00 AM EDT [facility] POLYETHYLENE GLYCOL 3350 142 MG/ML Oral Solution 02/16/2020 12:00:0 0 AM EDT [facility] meropenem (MERREM) 1 g injection 02/16/2020 12:00:00 AM EDT [facility] Chlorhexidine Gluconate (BIOPATCH PROTECTIVE DISK/CHG) (Dressing) MISC 02/16/2020 12:00:00 AM EDT [facility] 3 ML heparin sodium, porcine 100 UNT/ML Prefilled Syri nge 02/16/2020 12:00:00 AM EDT [facility] Aspirin 325 MG Oral Tablet 02/16/2020 12:00:00 AM EDT [facility] Acetaminophen 325 MG / Oxycodone Hydrochloride 5 MG Or al Tablet 02/16/2020 12:00:00 AM EDT [facility] meropenem 2 g in sodium chloride 0.9 % 100 mL IVPB 02/16/2020 12 :00:00 AM EDT [facility] meropenem (MERREM) 1 g injection 02/16/2020 12:00:00 AM EDT [facility] Chlorhexidine Gluconate (BIOPATCH PROTECTIVE DISK/CHG) (Dressing) MISC 02/16/2020 12:00:00 AM EDT [facility] Sodium Chloride Flush (NORMAL SALINE FLUSH) 0.9 % SOLN injection 02/16/2020 12:00:00 AM EDT [facility] 3 ML heparin sodium, porcine 100 UNT/ML Prefilled Syri nge 02/16/2020 12:00:00 AM EDT [facility] clopidogrel 75 MG Oral Tablet 07/26/2019 12:00:00 AM EDT [facility] Ondansetron 4 MG Oral Tablet 07/22/2019 12:00:00 AM EDT [facility] 0.5 ML dulaglutide 3 MG/ML Auto-Injector [Trulicity] 020 12:00:00 AM EST [facility] Mupirocin 0.02 MG/MG Topical Ointment 05/26/2019 12:00:00 AM EST [facility] B-D ULTRAFINE III SHORT PEN 31G X 8 MM [facility] 03/07/2019 12:00:00 AM EST [facility] Nystatin 100 UNT/MG Topical Powder 03/06/2019 12:00:00 AM EST [facility] Aspirin 325 MG Oral Tablet 03/06/2019 12:00:00 AM EST [facility] STEGLATRO 15 MG TABS 02/21/2019 12:00:00 AM EST [facility] 30 ACTUAT fluticasone furoate 0.2 MG/ACT UAT / vilanterol 0.025 MG/ACTUAT Dry Powder Inhaler [Breo] 02/16/2019 12:00:00 AM EDT [facility] pregabalin 150 MG Oral Capsule 01/16/2019 12:00:00 AM EDT [facility] ONE TOUCH ULTRA TEST test strip 12/21/2015 12:00:00 AM EDT [facility] B-D INS SYR ULTRAFINE 1CC/31G 31G X 5/16" 1 ML MISC 10/11/19 16 12:00:00 AM EDT [facility] Omeprazole 40 MG Delayed Release Oral Capsule [facility] Escitalopram 10 MG Oral Tablet [facility] Insulin Lispro 100 UNT/ML Injectable Solution [facility] Acetaminophen 325 MG / Hydrocodone Bitartrate 5 MG Oral Tablet [facility] duloxetine 60 MG Delayed Release Oral Capsule [facility]
[2021-02-11] MEDS ORDERED: dexameTHASONE 4 MG/ML 1ML VIAL (J1100 PER 1MG) IV ONE (09:05)
[2021-02-11] MEDS: COMBIVENT RESPIMAT 100-20MCG INHALER 4GM INH SCH ×3 (09:17→09:44)
--- NOTE | 2021-02-11 09:25 | REP ---
INDICATION: DYSPNEA/COUGH. COMPARISON: 11/10/2020. TECHNIQUE: Single portable AP view of the chest was performed. FINDINGS: There is no acute infiltrate or pulmonary edema. Lungs are clear. The heart is not significantly enlarged. The mediastinal silhouette is unremarkable. The visualized osseous structures are intact. IMPRESSION: No acute pulmonary disease. <Electronically signed by Uche Sweet > 02/11/21 [id number]
[2021-02-11 09:34] LABS: ABG BASE EXCESS 4.5 (-2.0-2.0); ABG HCO3 30.1 MEQ/L (22.0-26.0); ABG O2 SATURATION 97.9 % (95.0-99.0); ABG PARTIAL PRESSURE CO2 48.2 mmHg (35.0-45.0); ABG PARTIAL PRESSURE O2 133.8 mmHg (75.0-100.0); ABG STANDARD HCO3 28.5 MEQ/L (22.0-26.0); ABG TOTAL CO2 31.6 MEQ/L (22.0-29.0); ABG pH (ARTERIAL) 7.414 UNITS (7.350-7.450)
[2021-02-11 09:38] LABS: BASO # 0.1 10^3/uL (0.0-0.2); EOS # 0.2 10^3/uL (0.0-0.5); EOS % 2.3 % (0.0-3.0); HEMATOCRIT 50.7 % (36.0-47.0); HEMOGLOBIN 16.3 g/dl (12.0-15.5); LYMPH # 2.3 10^3/uL (1.5-5.0); LYMPH % 22.1 % (24.0-44.0); MEAN CORPUSCULAR HEMOGLOBIN 27.2 pg (27.0-33.0); MEAN CORPUSCULAR HGB CONC 32.1 g/dl (32.0-36.5); MEAN CORPUSCULAR VOLUME 84.6 fl (80.0-96.0); MONO # 0.6 10^3/uL (0.0-0.8); MONO % 5.4 % (2.0-8.0); NEUTROPHILS % 68.6 % (36.0-66.0); PLATELET COUNT, AUTOMATED 287 10^3/uL (150-450); RED BLOOD COUNT 5.99 10^6/uL (4.00-5.40); WHITE BLOOD COUNT 10.2 10^3/uL (4.0-10.0)
[2021-02-11 10:14] LABS: THYROID STIMULATING HORMONE 1.61 uIU/ML (0.358-3.740); THYROXINE (T4) 6.9 UG/DL (4.5-12.0)
[2021-02-11 10:46] VITALS: BP 154/92
[2021-02-11] MEDS ORDERED: PRED20TA PO (11:04)
[2021-02-11 11:14] LABS: ALBUMIN 2.6 GM/DL (3.2-5.2); ALT/SGPT 20 U/L (12-78); BILIRUBIN,DIRECT < 0.1 MG/DL (0.0-0.2); BILIRUBIN,TOTAL 0.2 MG/DL (0.2-1.0); BLOOD UREA NITROGEN 12 MG/DL (7-18); CARBON DIOXIDE LEVEL 31 MEQ/L (21-32); CHLORIDE LEVEL 107 MEQ/L (98-107); CK-MB VALUE MASS 2.8 NG/ML (<3.6); CPK CREATINE PHOSPHOKINASE 50 U/L (26-192); CREATININE FOR GFR 0.85 MG/DL (0.55-1.30); GLOMERULAR FILTRATION RATE > 60.0 (>51); GLUCOSE, FASTING 114 MG/DL (70-100); POTASSIUM SERUM 4.1 MEQ/L (3.5-5.1); SODIUM LEVEL 143 MEQ/L (136-145); TROPONIN I < 0.02 NG/ML (< 0.10)
--- NOTE | 2021-02-11 15:59 | ECGEPIP ---
[facility] - ED Test Date: 2021-02-11 Pat Name: TATIANNA LAMB Department: Room: - Gender: Female [employer]: JOVANY : 1965 Requested By: Kartik Huddleston Order Number: [id number] Reading MD: Kartik Huddleston Measurements Intervals [place] Rate: 107 P: 68 PA: 156 QRS: -7 QRSD: 92 T: 82 QT: 366 QTc: 488 Interpretive Statements Sinus tachycardia Cannot rule out Inferior infarct , age undetermined Cannot rule out Anterior infarct , age undetermined Nonspecific ST T wave changes cw 11/10/[address] T wave changes Electronically Signed on 02-11-2021 15:59:21 EDT by Kartik Huddleston
== END 2021-02-11 11:24 | disposition left against medical advice (07) ==
LOC: M ED 08:39
DX: R06.00 Dyspnea, unspecified (principal); J45.901 Unspecified asthma with (acute) exacerbation; Z53.9 Procedure and treatment not carried out, unspecified reason; R00.0 Tachycardia, unspecified; I11.9 Hypertensive heart disease without heart failure; E11.9 Type 2 diabetes mellitus without complications; E78.5 Hyperlipidemia, unspecified; G47.33 Obstructive sleep apnea (adult) (pediatric); F41.9 Anxiety disorder, unspecified; F32.A Depression, unspecified; F17.200 Nicotine dependence, unspecified, uncomplicated; Z88.1 Allergy status to other antibiotic agents; Z88.8 Allergy status to other drugs, medicaments and biological substances; Z79.82 Long term (current) use of aspirin; Z79.4 Long term (current) use of insulin; Z79.899 Other long term (current) drug therapy
CPT/HCPCS: 36415; 36600; 71045; 80048; 80076; 82550; 82553; 82803; 83605; 83880; 84436; 84443; 85025; 87040; 87798; 93005; 93041; 94640; 94760; 96374; 99285; J1100

== ENCOUNTER 2021-03-13 20:02 | Inpatient (IN) | payer OTHER ==
[~2021-03-13] VITALS: Ht 162.6 cm; Wt 93.1 kg
[~2021-03-13 20:02] MED LIST changes: +FERR325T19; -LISI-898 PO; +LISI5TAB11 PO; +PRED20TA PO
[2021-03-13] MEDS ORDERED: NS 1,000 ML IV ONE (20:15)
[2021-03-13 20:47] LABS: BASO # 0.1 10^3/uL (0.0-0.2); BASO % 0.6 % (0.0-1.0); HEMATOCRIT 50.6 % (36.0-47.0); LYMPH # 1.3 10^3/uL (1.5-5.0); LYMPH % 14.8 % (24.0-44.0); MEAN CORPUSCULAR HEMOGLOBIN 27.6 pg (27.0-33.0); MEAN CORPUSCULAR HGB CONC 33.6 g/dl (32.0-36.5); MEAN CORPUSCULAR VOLUME 82.3 fl (80.0-96.0); MONO # 0.5 10^3/uL (0.0-0.8); MONO % 5.3 % (2.0-8.0); NEUTROPHILS # 7.2 10^3/uL (1.5-8.5); NEUTROPHILS % 78.7 % (36.0-66.0); PLATELET COUNT, AUTOMATED 250 10^3/uL (150-450); RED BLOOD COUNT 6.15 10^6/uL (4.00-5.40); WHITE BLOOD COUNT 9.1 10^3/uL (4.0-10.0)
[2021-03-13 21:02] LABS: HEMOGLOBIN A1c 10.6 %
[2021-03-13 21:19] LABS: OSMOLALITY SERUM 305 MOSM/KG (275-295)
[2021-03-13 21:22] LABS: ALBUMIN 2.7 GM/DL (3.2-5.2); ALT/SGPT 15 U/L (12-78); BILIRUBIN,DIRECT < 0.1 MG/DL (0.0-0.2); BILIRUBIN,TOTAL 0.4 MG/DL (0.2-1.0); ETHYL ALCOHOL (ETHANOL) < 0.003 % (0.000-0.010); LIPASE 23 U/L (73-393); TOTAL PROTEIN 7.1 GM/DL (6.4-8.2)
[2021-03-13 21:23] LABS: CK-MB VALUE MASS 1.8 NG/ML (<3.6); MB/CK RELATIVE INDEX 1.41 (< OR =4)
[2021-03-13 21:26] LABS: ABG pH (ARTERIAL) 7.434 UNITS (7.350-7.450)
[2021-03-13 21:27] LABS: ABG BASE EXCESS 4.1 (-2.0-2.0); ABG HCO3 29.1 MEQ/L (22.0-26.0); ABG O2 SATURATION 97.1 % (95.0-99.0); ABG PARTIAL PRESSURE CO2 44.4 mmHg (35.0-45.0); ABG PARTIAL PRESSURE O2 98.4 mmHg (75.0-100.0); ABG STANDARD HCO3 28.1 MEQ/L (22.0-26.0); ABG TOTAL CO2 30.4 MEQ/L (22.0-29.0)
[2021-03-13] MEDS ORDERED: HumuLIN R (REGULAR) INSULIN (NovoLIN R) **100U/ML** PER UNIT IV STA (21:30)
[2021-03-13 22:40] LABS: CK-MB VALUE MASS 1.7 NG/ML (<3.6); MB/CK RELATIVE INDEX 4.86 (< OR =4)
[2021-03-13] MEDS ORDERED: ISOVUE-370 76% 100ML VIAL As Ordered ONE (22:49)
[2021-03-13] MEDS ORDERED: LORazepam 2 MG/ML VIAL IV STA (23:12)
[2021-03-14] MEDS ORDERED: LORazepam 2 MG/ML VIAL As Ordered ONE (00:05)
[2021-03-14 01:08] LABS: CK-MB VALUE MASS 1.6 NG/ML (<3.6); MB/CK RELATIVE INDEX 4.57 (< OR =4)
[2021-03-14 02:01] LABS: AMPHETAMINES LEVEL URINE NEGATIVE (NEGATIVE); BARBITURATES URINE NEGATIVE (NEGATIVE); BENZODIAZEPINES URINE NEGATIVE (NEGATIVE); CANNABINOIDS URINE NEGATIVE (NEGATIVE); COCAINE METABOLITE URINE NEGATIVE (NEGATIVE); METHADONE URINE NEGATIVE (NEGATIVE); OPIATES URINE POSITIVE (NEGATIVE); PHENCYCLIDINE URINE NEGATIVE (NEGATIVE)
[2021-03-14 03:13] LABS: ABG BASE EXCESS 3.8 (-2.0-2.0); ABG HCO3 29.2 MEQ/L (22.0-26.0); ABG O2 SATURATION 98.4 % (95.0-99.0); ABG PARTIAL PRESSURE CO2 46.2 mmHg (35.0-45.0); ABG PARTIAL PRESSURE O2 141.1 mmHg (75.0-100.0); ABG STANDARD HCO3 27.9 MEQ/L (22.0-26.0); ABG TOTAL CO2 30.6 MEQ/L (22.0-29.0); ABG pH (ARTERIAL) 7.418 UNITS (7.350-7.450)
[2021-03-14] MEDS ORDERED: ACETAMINOPHEN TAB 650MG DOSE (2X325MG) PO PRN (03:30)
[2021-03-14] MEDS ORDERED: GLUCOSE 4GM CHEW TABLET PO PRN (03:30)
[2021-03-14] MEDS ORDERED: DEXTROSE 50% 50 ML SYRINGE IV PRN (03:30)
[2021-03-14] MEDS ORDERED: GLUCAGON INJ 1MG VIAL SC PRN (03:30)
[2021-03-14] MEDS ORDERED: LORazepam 2 MG TAB PO PRN (04:05)
[2021-03-14] MEDS: HumaLOG INSULIN (NovoLOG) PER UNIT SC SCH ×3 (06:38→18:58)
[2021-03-14] MEDS ORDERED: NALOXONE INJ 0.4MG/1ML VIAL (J2310 PER 1MG) IV STA (07:41)
[2021-03-14 07:48] LABS: HEMATOCRIT 51.5 % (36.0-47.0); HEMOGLOBIN 16.9 g/dl (12.0-15.5); MEAN CORPUSCULAR HEMOGLOBIN 27.8 pg (27.0-33.0); MEAN CORPUSCULAR HGB CONC 32.8 g/dl (32.0-36.5); MEAN CORPUSCULAR VOLUME 84.6 fl (80.0-96.0); PLATELET COUNT, AUTOMATED 251 10^3/uL (150-450); RED BLOOD COUNT 6.09 10^6/uL (4.00-5.40); WHITE BLOOD COUNT 10.1 10^3/uL (4.0-10.0)
[2021-03-14] MEDS ORDERED: CALCIUM GLUCONATE 1,000 MG in D5W MINI-BAG PLUS 100 ML IV ONE ×2 (07:55→08:00)
[2021-03-14 07:58] LABS: INR 0.99; PROTHROMBIN TIME 13.4 SECONDS (12.7-14.5)
[2021-03-14 07:59] LABS: PARTIAL THROMBOPLASTIN TIME 28.6 SECONDS (25.9-37.0)
[2021-03-14] MEDS ORDERED: METOPROLOL 5 MG/5 ML VIAL IV PRN (08:00)
[2021-03-14 08:27] LABS: ALBUMIN 2.8 GM/DL (3.2-5.2); ALT/SGPT 15 U/L (12-78); BILIRUBIN,TOTAL 0.3 MG/DL (0.2-1.0); BLOOD UREA NITROGEN 21 MG/DL (7-18); CALCIUM LEVEL 9.1 MG/DL (8.5-10.1); CARBON DIOXIDE LEVEL 31 MEQ/L (21-32); CHLORIDE LEVEL 101 MEQ/L (98-107); CREATININE FOR GFR 1.03 MG/DL (0.55-1.30); GLOMERULAR FILTRATION RATE 59.7 (>51); GLUCOSE, FASTING 403 MG/DL (70-100); POTASSIUM SERUM 4.1 MEQ/L (3.5-5.1); SODIUM LEVEL 138 MEQ/L (136-145); TOTAL PROTEIN 6.9 GM/DL (6.4-8.2)
[2021-03-14] MEDS ORDERED: LEVEMIR (INSULIN DETEMIR) 1 UNITS/0.01ML SC SCH (09:00)
[2021-03-14] MEDS: NS 1,000 ML IV SCH ×3 (09:04→22:42)
[2021-03-14] MEDS: MULTIVITAMINS/MINERALS THERAP 1 TAB PO SCH (09:05)
[2021-03-14] MEDS: FOLIC ACID 1 MG TAB PO SCH (09:05)
[2021-03-14] MEDS: THIAMINE 100 MG TAB PO SCH ×2 (09:06→22:19)
[2021-03-14] MEDS ORDERED: HumaLOG INSULIN (NovoLOG) PER UNIT SC ONE ×2 (09:25→13:20)
[2021-03-14] MEDS ORDERED: BUPR300T92 PO (09:54)
[2021-03-14] MEDS ORDERED: DIFL200T PO (10:01)
[2021-03-14] MEDS ORDERED: LYRI300C PO (10:01)
[2021-03-14] MEDS ORDERED: TRAM50TA2 PO (10:01)
[2021-03-14] MEDS ORDERED: HYDR-3713 PO (10:01)
[2021-03-14] MEDS ORDERED: VENL75CA47 PO (10:01)
[2021-03-14 10:02] LABS: HEPATITIS B SURFACE ANTIGEN NEGATIVE (NEGATIVE)
[2021-03-14] MEDS ORDERED: MED NOTE (10:04)
[2021-03-14] MEDS ORDERED: PENT400T47 PO (10:05)
[2021-03-14] MEDS ORDERED: LEXA1TAB PO (10:08)
[2021-03-14] MEDS ORDERED: HOME MED LIST COMPLETE! XX SCH (10:10)
[2021-03-14 10:30] LABS: HEPATITIS B CORE ANTIBODY IGM NEGATIVE (NEGATIVE); HEPATITIS C VIRUS ABY INDEX 0.1 INDEX (<0.8)
[2021-03-14] MEDS: ENOXAPARIN 40MG/0.4ML SYRINGE (J1650 PER 10MG) SC SCH (10:35)
[2021-03-14] MEDS ORDERED: ALBUTEROL 90 MCG/ACT 8GM HFA INHALER INH PRN (13:40)
[2021-03-14 14:40] LABS: FREE T4 1.07 NG/DL (0.76-1.46); THYROID STIMULATING HORMONE 1.03 uIU/ML (0.358-3.740)
[2021-03-14 14:43] LABS: FOLATE 12.3 NG/ML (>5.4)
[2021-03-14] MEDS: PENTOXIFYLLINE 400 MG TAB PO SCH ×2 (18:50→22:20)
[2021-03-14] MEDS ORDERED: HumaLOG INSULIN (NovoLOG) PER UNIT SC STA (19:44)
[2021-03-14] MEDS ORDERED: ATORVASTATIN 20 MG TAB PO SCH (21:00)
[2021-03-14 21:48] VITALS: BP 152/88
[2021-03-14 22:05] VITALS: BP 152/88
[2021-03-14] MEDS ORDERED: **hydrALAZINE** 10 MG TAB PO PRN (22:15)
[2021-03-14] MEDS: PREGABALIN 100 MG CAP (LYRICA) PO SCH (22:19)
[2021-03-14] MEDS: OMEPRAZOLE 20MG CAP PO SCH (22:19)
[2021-03-15] MEDS: HumaLOG INSULIN (NovoLOG) PER UNIT SC SCH ×4 (00:14→17:17)
[2021-03-15 01:40] VITALS: BP_SYST 125; BP_SYST 99; BP_DIAS 60; BP_DIAS 89
[2021-03-15 02:14] VITALS: O2SAT 91
[2021-03-15 06:00] VITALS: BP 175/81
[2021-03-15 06:02] VITALS: BP 175/81
[2021-03-15 06:48] LABS: HEMATOCRIT 48.7 % (36.0-47.0); HEMOGLOBIN 15.6 g/dl (12.0-15.5); MEAN CORPUSCULAR HEMOGLOBIN 27.8 pg (27.0-33.0); MEAN CORPUSCULAR VOLUME 86.7 fl (80.0-96.0); PLATELET COUNT, AUTOMATED 230 10^3/uL (150-450); RED BLOOD COUNT 5.62 10^6/uL (4.00-5.40); WHITE BLOOD COUNT 10.3 10^3/uL (4.0-10.0)
[2021-03-15 07:19] LABS: ALT/SGPT 13 U/L (12-78); BLOOD UREA NITROGEN 25 MG/DL (7-18); CALCIUM LEVEL 8.8 MG/DL (8.5-10.1); CARBON DIOXIDE LEVEL 28 MEQ/L (21-32); CHLORIDE LEVEL 106 MEQ/L (98-107); CREATININE FOR GFR 0.83 MG/DL (0.55-1.30); GLOMERULAR FILTRATION RATE > 60.0 (>51); GLUCOSE, FASTING 199 MG/DL (70-100); POTASSIUM SERUM 3.5 MEQ/L (3.5-5.1); SODIUM LEVEL 139 MEQ/L (136-145)
[2021-03-15 07:20] LABS: ALBUMIN 2.3 GM/DL (3.2-5.2); BILIRUBIN,TOTAL 0.3 MG/DL (0.2-1.0); TOTAL PROTEIN 6.4 GM/DL (6.4-8.2)
[2021-03-15] MEDS ORDERED: LEVEMIR (INSULIN DETEMIR) 1 UNITS/0.01ML SC SCH ×2 (09:00→21:00)
[2021-03-15] MEDS ORDERED: ASPIRIN 81 MG CHEW TABLET PO SCH (09:00)
[2021-03-15] MEDS ORDERED: CLOPIDOGREL 75 MG TAB PO SCH (09:00)
[2021-03-15] MEDS ORDERED: VENLAFAXINE **XR** 75MG CAPSULE PO SCH (09:00)
[2021-03-15] MEDS ORDERED: ESCITALOPRAM OXALATE 10 MG TAB (LEXAPRO) PO SCH (09:00)
[2021-03-15] MEDS ORDERED: EZETIMIBE 10MG TABLET (ZETIA) PO SCH (09:00)
[2021-03-15] MEDS ORDERED: buPROPion **XL** TABLET 150MG (WELLBUTRIN XL) PO SCH (09:00)
[2021-03-15] MEDS ORDERED: FERROUS SULFATE 325MG TAB PO SCH (09:00)
[2021-03-15] MEDS: ENOXAPARIN 40MG/0.4ML SYRINGE (J1650 PER 10MG) SC SCH (09:13)
[2021-03-15] MEDS: FOLIC ACID 1 MG TAB PO SCH (09:13)
[2021-03-15] MEDS: PREGABALIN 100 MG CAP (LYRICA) PO SCH (09:13)
[2021-03-15] MEDS: OMEPRAZOLE 20MG CAP PO SCH (09:13)
[2021-03-15] MEDS: MULTIVITAMINS/MINERALS THERAP 1 TAB PO SCH (09:13)
[2021-03-15] MEDS: THIAMINE 100 MG TAB PO SCH (09:13)
[2021-03-15] MEDS: PENTOXIFYLLINE 400 MG TAB PO SCH ×2 (09:13→17:16)
[2021-03-15 10:00] VITALS: BP 126/87
[2021-03-15] MEDS: NS 1,000 ML IV SCH (11:19)
[2021-03-15 14:00] VITALS: BP 127/68
[2021-03-15] MEDS ORDERED: HumaLOG INSULIN (NovoLOG) PER UNIT SC SCH (21:00)
[2021-03-16] MEDS ORDERED: FLUBLOK(EGG FREE)(QUAD)INFLUENZA VACC 0.5ML SYRINGE 18YRS & OLDER IM ONE (09:00)
[2021-04-30] MEDS ORDERED: LEXA1TAB PO (11:18)
[2021-04-30] MEDS ORDERED: LEXA1TAB2 PO (11:19)
== END 2021-03-15 17:40 | disposition left against medical advice (07) | DRG 812 ==
LOC: M ED 20:02 → M ED INP 03-14 03:30 → M MSPAV 03-14 21:47
PROVIDERS: ADMIT Internal Medicine; ATTEND Internal Medicine
DX: T40.694A Poisoning by other narcotics, undetermined, initial encounter (principal); G92.8 Other toxic encephalopathy; E11.51 Type 2 diabetes mellitus with diabetic peripheral angiopathy without gangrene; D75.1 Secondary polycythemia; E87.5 Hyperkalemia; K76.0 Fatty (change of) liver, not elsewhere classified; Z79.82 Long term (current) use of aspirin; Z79.899 Other long term (current) drug therapy; Z79.4 Long term (current) use of insulin; Z91.018 Allergy to other foods; Z88.8 Allergy status to other drugs, medicaments and biological substances; J44.9 Chronic obstructive pulmonary disease, unspecified; I25.10 Atherosclerotic heart disease of native coronary artery without angina pectoris; Z95.1 Presence of aortocoronary bypass graft; I10 Essential (primary) hypertension; G47.33 Obstructive sleep apnea (adult) (pediatric); F17.200 Nicotine dependence, unspecified, uncomplicated; F41.9 Anxiety disorder, unspecified; F32.9 Major depressive disorder, single episode, unspecified

== ENCOUNTER 2021-04-26 18:12 | Emergency (ER) | payer OTHER ==
[~2021-04-26] VITALS: Ht 162.6 cm; Wt 81.8 kg
[2021-04-26 18:12] VITALS: BP 143/94
[~2021-04-26 18:12] MED LIST changes: +BUPR300T92 PO; +DIFL200T PO; +LEXA1TAB PO; +LYRI300C PO; +MED NOTE; +TRAM50TA2 PO; +VENL75CA47 PO
== END 2021-04-26 18:32 | disposition left against medical advice (07) ==
LOC: M ED 18:12
DX: Z53.21 Procedure and treatment not carried out due to patient leaving prior to being seen by health care provider (principal)

== ENCOUNTER 2021-05-15 12:03 | Emergency (ER) | payer OTHER ==
[~2021-05-15] VITALS: Ht 165.1 cm; Wt 94.8 kg
[2021-05-15 12:04] VITALS: BP 159/100
== END 2021-05-15 12:10 | disposition left against medical advice (07) ==
LOC: M ED 12:03
DX: Z53.21 Procedure and treatment not carried out due to patient leaving prior to being seen by health care provider (principal)